=== PATIENT | female | born 1940 | race Caucasian/White ===

== ENCOUNTER 2023-05-01 10:25 | Outpatient (OUT) | payer MEDICARE, OTHER, SELFPAY ==
--- NOTE | 2023-05-01 | XR_ITS ---
The [address] [address] Patient Name: LEYLA LAMBERT MRN: [id number] date: 1940 Sex: F Assigned Patient Location: Current Patient Location: Accession/Order Number: [id number] Exam Date: 05/01/2023 10:53 Report Date: 05/01/2023 22:52 At the request of: AVA JARAMILLO Procedure: XR tibia fibula LT 2V EXAM: XR tibia fibula LT 2V HISTORY: LEFT LOWER LEG INJURY COMPARISON: None. TECHNIQUE: 2 views left tibia/fibula FINDINGS: There is a soft tissue defect seen along the lateral aspect of the fibula. No underlying osseous abnormality. Joint alignment is preserved. There is chondrocalcinosis at the knee joint with mild degenerative change. Incidental note of vascular calcification. XR/XR tibia fibula LT 2V IMPRESSION: Soft tissue defect at the lateral aspect of the proximal to mid fibula without osseous abnormality. Chondrocalcinosis and degenerative change of the knee joint. Electronically authenticated by: JENNIFER MACDONALD Date: 05/01/2023 22:52
== END 2023-05-01 10:26 | disposition home or self-care (01) ==
LOC: WC 10:25
PROVIDERS: PCP Family Medicine; Visit Provider Podiatrist Foot & Ankle Surgery
DX: S81.802A Unspecified open wound, left lower leg, initial encounter (principal)
CPT/HCPCS: 73590; G0463

== ENCOUNTER 2023-07-13 09:34 | Outpatient (OUT) | payer MEDICARE, OTHER, SELFPAY | END 2023-07-13 09:35 | disposition home or self-care (01) | LOC: WC 09:34 | PROVIDERS: PCP Family Medicine; Visit Provider Physician Assistant | DX: S81.802A Unspecified open wound, left lower leg, initial encounter (principal) | CPT/HCPCS: G0463 ==

== ENCOUNTER 2024-12-09 08:18 | Outpatient (OUT) | payer MEDICARE, OTHER, SELFPAY | END 2024-12-09 08:19 | disposition home or self-care (01) | LOC: WC 08:20 | PROVIDERS: PCP Family Medicine; Visit Provider Podiatrist Foot & Ankle Surgery | DX: L97.922 Non-pressure chronic ulcer of unspecified part of left lower leg with fat layer exposed (principal) | CPT/HCPCS: G0463 ==

== ENCOUNTER 2024-12-27 14:05 | Outpatient (OUT) | payer MEDICARE, OTHER, SELFPAY | END 2024-12-27 14:06 | disposition home or self-care (01) | LOC: WC 14:06 | PROVIDERS: PCP Family Medicine; Visit Provider Physician Assistant | DX: L97.922 Non-pressure chronic ulcer of unspecified part of left lower leg with fat layer exposed (principal) | CPT/HCPCS: G0463 ==

== ENCOUNTER 2025-01-24 08:15 | Outpatient (OUT) | payer MEDICARE, OTHER, SELFPAY ==
--- OUTSIDE RECORDS SUMMARY | 2024-07-25 10:15 | XMS_ITS ---
Author Organization [facility] Address [address] [place] [address] Care Team Providers Care Gas Pit Worker Name Role Phone rosita singh Primary Care Provider JARED PETERS [phone] REASON FOR VISIT blood draw Encounters Encounter Location Date Provider Diagnosis [facility] [address] [place] [address] 07/25/2024 JARED PETERS Plan Of Treatment No Information Progress Notes * Nahomy LAMBERT ADOB: (84 yo F)Acc No.[id number]:07/25/2024 Progress Notes Patient: Argenis SANTONahomy MAYEN Provider: Anton PETERS MD :1940 A ge:84 Y S ex:Female Date:07/25/2024 Address:[address] Pcp:rosita velazquez Structured Data:Consent to r eceive voicemail/text messages? : YES Subjective: * Chief Complaints: * 1 . Blood draw. * Medical History: Objective: * Vitals: Assessment: Plan: * Treatment: * Billing Information: * Visit Code: * Procedure Codes: * Electronic signature of JUHI PETERS MD on 01/24/2025 at 08:21 AM EDT Sign off status: Pending * Provider: Anton PETERS MD Date: 09/25/2023 Generated for Printi ng/Faxing/eTransmitting on: 0 01/24/2025 08:21 AM EDT
--- OUTSIDE RECORDS SUMMARY | 2024-08-01 07:00 | XMS_ITS ---
Author Organization [facility] Address [address] [place] [address] Care Team Providers Care Goldbeater Name Role Phone rosita singh Primary Care Provider AMEYA BENITEZ [phone] REASON FOR VISIT f/u labs Encounters Encounter Location Date Provider Diagnosis [facility] [address] [place] [address] 08/01/2024 AMEYA BENITEZ Plan Of Treatment No Information Progress Notes * Nahomy LAMBERT ADOB: (84 yo F)Acc No.[id number]:08/01/2024 Patient: Argenis SANTONahomy MAYEN Provider: Newton BENITEZ MD :1940 A ge:84 Y S ex:Female Date:08/01/2024 Address:[address] Pcp:rosita velazquez Structured Data:Consent to r eceive voicemail/text messages? : YES Subjective: * Chief Complaints: * 1 . F/u labs. * Medical History: Objective: * Vitals: Assessment: Plan: * Treatment: * Billing Information: * Visit Code: * Procedure Codes: * Electronic signature of ZOHAIB BENITEZ MD on 01/24/2025 at 08:21 AM EDT Sign off status: Pending * Provider: Newton BENITEZ MD Date: 10/02/2023 Generated for Printi ng/Faxing/eTransmitting on: 01/24/2025 08:21 AM EDT
--- OUTSIDE RECORDS SUMMARY | 2024-09-22 09:30 | XMS_ITS ---
Author Organization [facility] Address [address] [place] [address] Care Team Providers Care Patient Educator Name Role Phone rosita singh Primary Care Provider AMEYA BENITEZ [phone] REASON FOR VISIT Annual Wellness Visit Encounters Encounter Location Date Provider Diagnosis [facility] [address] [place] [address] 09/22/2024 AMEYA BENITEZ Plan Of Treatment No Information Progress Notes * Nahomy LAMBERT ADOB: (84 yo F)Acc No.[id number]:09/22/2024 Progress Notes Patient: Argenis SANTONahomy MAYEN Provider: Newton BENITEZ MD :1940 A ge:84 Y S ex:Female Date:09/22/2024 Address:[facility] [address] Pcp:rosita velazquez Structured Data:Consent to r eceive voicemail/text messages? : YES Subjective: * Chief Complaints: * 1 . Annual Wellness Visit. * Medical History: Objective: * Vitals: Assessment: Plan: * Treatment: * Billing Information: * Visit Code: * Procedure Codes: * Electronic signature of ZOHAIB BENITEZ MD on 01/24/2025 at 08:19 AM EDT Sign off status: Pending * Provider: Newton BENITEZ MD Date: 09/22/2024 Generated for Printi ng/Faelisabetg/eTransmitting on: 01/24/2025 08:19 AM EDT
--- OUTSIDE RECORDS SUMMARY | 2025-01-24 08:20 | XMS_ITS | Patient Health Record ---
Author Organization [facility] Address [facility] [place] [address] Support Name Relationship Address Phone Nahomy Fried Guarantor Unknown [phone] Allergies Allergen (clinical drug ingredient) Drug/Non Drug Allergy documented on EMR Reaction Allergy Type Onset Date Status acetaminophen Tylenol stomach upset Drug Allergy Active codeine Codeine stomach upset Drug Allergy Act patience Latex Latex Rash Allergy Active Reason For Referral No Information Medications Medication SIG (Take, Route, Frequency, Duration) Notes Start Date End Date Status Calcium Carbonate 1250 (500 Ca) MG 1 tablet Orally Once a day Active Carbidopa-Levodopa 25-100 MG 1 tablet as needed Orally Once a day Active Daliresp 500 MCG 1 tablet Orally Once a day Active Doxycycline Monohydrate 100 MG 1 capsule Orally every 12 hrs Active Fludrocortisone Acetate 0.1 MG 1 tablet Orally Once a day Active hydrALAZINE HCl 25 MG 1 tablet with food Orally Three times a day Active Levothyroxine Sodium 100 MCG 1 tablet in the morning on an empty stomach Orally Once a day Active traZODone HCl 150 MG 1 tablet at bedtime Orally Once a day Active Trelegy Ellipta 100-62.5-25 MCG/INH 1 puff Inhalation Once a day Active Warfarin Sodium 5 MG 1 tablet Orally Thursday, , Thursday, Thursday Active amLODIPine Besylate 5 MG 1 tablet Orally Once a day Active Warfarin Sodium 7.5 MG 1 tablet Orally M , Thursday, Thursday Active Aspirin 81 MG 1 tablet Orally Once a day Active CeleBREX 200 MG 1 capsule with food Orally Once a day for 60 days Active CeleBREX 200 MG 1 capsule with food Orally Once a day Active Problems Problem Type SNOMED Code ICD Code Onset Dates Problem Status W/U Status Risk Notes Problem Chronic pain syndrome (243196215) Chronic pain syndrome (G89.4) Active confirmed Problem Lumbar radiculopathy (355565815) Lumbar radiculopathy (M54.16) Active confirmed Problem Acquired spondylolisthesis (663985091) 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) Active confirmed Problem 7376669362925637 History of tota l left knee replacement (Z96.652) Active confirmed Plan Of Treatment Pending Test Test Name Order Date CT Scan : Lumbar Spine 09/04/2021 Ultrasound : Lower Extremity, right 08/17 Insurance Providers Payer Name Payer Address Payer Phone Subscriber Number Group Number Insured Name Patient Relationship to Insured Coverage Start Date Coverage End Date MEDICARE OF [place] [address] [place] [phone] [id number] Nahomy Fried Self - patient is the insured [address] [phone] [id number] Nahomy Fried Self - patient is the insured Medical (General) History Medical History History ICD Code Arthritis Orthostatic Hypotension Hypothyroidism Pulmonary Embolism Insomnia Cyst on Left Kidney Heart Disease (Pace Maker) Breast Cancer (Mastectomy) Surgical History Surgery Date(Month/Year) TKR (right) X 2 Hysterctomy Mastectomy (Bilateral) Pace Maker Colectomy Hospitalization History Reason Date(Month/Year) Infection on Right leg
--- OUTSIDE RECORDS SUMMARY | 2025-01-24 08:20 | XMS_ITS | Patient Health Record ---
Author Organization [facility] Address [address] [place] [address] Care Team Providers Care Engine Repairer Production Name Role Phone rosita singh Primary Care Provider JARED PETERS Unavailable [phone] AMEYA BENITEZ Unavailable [phone] Allergies Allergen (clinical drug ingredient) Drug/Non Drug Allergy documented on EMR Reaction Allergy Type Onset Date Status cobalt, Gold (uncoded) rash Allergy Active Tylenol/Codeine #3 stomach upset Drug Allergy Active Latex latex rash Allergy Active nickel Nickel rash Allergy Active Reason For Referral No Information Medications Medication SIG (Take, Route, Frequency, Duration) Notes Start Date End Date Status Celecoxib 200 MG 1 capsule Orally TWICE a day Active Famotidine 40 MG 1 tablet Orally twic e a day (morning and bedtime) Active hydrALAZINE HCl 25 MG 1 tablet with food Orally every 4 hours as needed for sap over 180 for 90 days Active Clopidogrel Bisulfate 75 MG 1 tablet Ora lly Once a day Active Levothyroxine Sodium 100 MCG 1 tablet every morning on an empty stomach Orally Once a day for 90 days Active Metoprolol Succinate 100 MG 1 capsule Or ally Once a day Not-Taking Apixaban 5 MG 1 tablet Orally Twic e a day for 90 days Active Montelukast Sodium 10 MG Take 1 tablet b y mouth once daily for 90 days for 90 Active Aspirin 81 MG 1 tablet Orally Once a day Active traZODone HCl 150 MG 1 tablet at bedtime Orally Once a day for 90 days Active Fludrocortisone Acetate 0.1 MG 3 tablet Orally Once a day Active Coumadin 5 MG 1 tablet M & F, 1 tablet 5 days Orally Once a day Active Metoprolol Succinate ER 100 MG 1 tablet Orally Once a day for 90 days Active Gabapentin 300 MG 2 capsules Orally ti d for 90 days Active Pantoprazole Sodium 40 MG 1 tablet Orall y in the morning and bed time Active Doxycycline Monohydrate 100 MG 1 capsule Orally twice a day Active Carbidopa-Levodopa 25-100 MG 1 tablet Orally AT NIGHT for 90 days Active Fluticasone Propionate 50 MCG/ACT 1 spray in each nostril Nasally Once a day for 90 days Active Social History Alcohol Screening: Question Answer Notes Did you have a drink containing alcohol in the p ast year? No Points 0 Interpretation Negative Problems Problem Type SNOMED Code ICD Code Onset Dates Problem Status W/U Status Risk Notes Problem 53479036 Atherosclerosis of aorta (I70.0) Active confirmed Problem 319824075 Other thrombophilia (D68.69) Active confirmed Pt taking anticoagulant due AF and Pulmonary Embolism Problem Hyperlipidemia (47840277) Other hyperlipidemia (E78.4) Active confirmed Problem 34743107 Hyperlipidemia, unspecified (E78.5) Active confirmed Problem 49169315 Restless legs syndrome (G25.81) Active confirmed Problem 516130447163423 Atherosclerotic heart disease of [place] coronary artery without angina pectoris (I25.10) Active confirmed Problem 058231430966208 Spinal enthesopathy, 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) Active confirmed Ligamentum flavum hypertrophy L3-L4 /// 08/21/2021 CT Lumbar Spine Problem 029416367 Overactive bladder (N32.81) Active confirmed Problem 760587305 assisted (current) 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s (Z79.01) Active confirmed Problem 335379965 Personal history of other venous thrombosis and embolism (Z86.718) Active confirmed Problem 13579282 Hypothyroidism, unspecified (E03.9) Active confirmed Problem 08815172 Essential (primary) hypertension (I10) Active confirmed Problem 71936251 Hypertensive heart disease with heart failure (I11.0) Active confirmed Associated with HF---Continue on Clopidogrel Bisulfate 75 MG Problem 10297764 Chronic obstructive pulmonary disease, unspecified (J44.9) Active confirmed 02/27/2023 Cardiology notes--Taking Daliresp Problem 43260479 Sick sinus syndrome (I49.5) Active confirmed 02/27/2023 Cardiology notes--S/P PPM (permanent pacemaker) implanted in 2017 Problem 704282554 Insomnia, unspecified type (G47.00) Active confirmed Problem 04945909 Other pulmonary embolism without acute cor pulmonale, unspecified chronicity (I26.99) Active confirmed 02/27/2023 Cardiology note page 1/ patent stent in LAD, on Coumadin Problem Non-smoker (3516407) Non-smoker (Z78.9) Active confirmed Problem 398136899 Diastolic congestive heart failure, unspecified HF chronicity (I50.30) Active confirmed Diastolic dysfunction-Gl obal EF 45-50%, E to A ratio reversal in ECHO 09/2021--- 11/10/2022 [place] [facility] notes Problem Chronic atrial fibrillation (disorder) (419446269) Chronic atrial fibrillation, unspecified (I48.20) Active confirmed Pt in anti-platelets therapy --08/19/2017 Dr. Andrade notes--page 3/ Problem Cardiac pacemaker in situ (586542572) Cardiac pacemaker in situ (Z95.0) Active confirmed Problem 79166214 Parkinson's disease, unspecified whether dyskinesia present, unspecified whether manifestations fluctuate (G20.A1) Active confirmed Taking Carbidopa-Levo dopa Problem 09836314 Congestive heart failure, unspecified congestive heart failure chronicity, unspecified congestive heart failure type (I50.9) Inactive confirmed Problem 85298450 Parkinsonism, unspecified Parkinsonism type (G20.C) Inactive confirmed Taking Carbidopa-Levo dopa Encounters Encounter Location Date Provider Diagnosis [facility] [place] [address] [place] [address] 10/07/2024 AMEYA BENITEZ Plan Of Treatment Pending Test Test Name Order Date HEMOGLOBIN A1c (496) [facility] 09/24/2023 UA Urinalysis Complete (9653) [facility] 03/2024 Lipid Panel, Standard (7600) [facility]Pay 09/24/2023 CBC (includes Differential and Platelets ) (6399) [facility] 09/24/2023 TSH and FREE T4 (97050) [facility] 09/24/2023 CT: Lumbar Spine WIthout Contrast 2021 COMPREHENSIVE METABOLIC PANEL (71251) [facility] EST 09/24/2023 INR 09/11/2016 INR 07/22/2019 INR 08/02/2018 INR 08/05/2013 Prothrombin Time/INR (PT) 0137-0 020 Chest X-ray PA and lateral 07/22/2011 CBC (INCLUDES DIFF/PLT) 07/30/2017 Future Test Test Name Order Date Chest X-ray PA and lateral 07/22/2017 Vitamin D, 25-Hydroxy, Total, Immunoassa y (67062) - [facility] 09/23/2021 ESR Sed Rate by Modified Westergren (809 ) [facility] 09/23/2021 CBC (H/H, RBC, Indices, WBC, Plt) (1759) [facility] 09/23/2021 TSH and FREE T4 (01340) [facility] 09/23/2021 COMPREHENSIVE METABOLIC PANEL (84235) [facility] 09/23/2021 LIPID PANEL W/REFLEX TO DIRECT LDL (1485 2) [facility] 09/23/2021 Insurance Providers Payer Name Payer Address Payer Phone Subscriber Number Group Number Insured Name Patient Relationship to Insured Coverage Start Date Coverage End Date Medicare - [facility] [address] [address] [place] [address] [id number] Nahomy Fried A Self - patient is the insured [address] [id number] Nahomy Fried A Self - patient is the insured Medical (General) History Medical History History ICD Code Hypertension Chronic atrial fibrillation Hypercoagulable state with h istory of multiple DVTs and pulmonary emboli, 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 CAD, status post PCI with stents Hypothyroidism COPD Pulmonary hypertension Breast cancer, bilateral mastectomies Dyslipidemia Chronic constipation Chronic Coumadin therapy chronic kidney disease respiratory failure with hypoxia CARISA on CPAP lung nodule anxiety CHF NYHA class III angina class III persistent sinus bradycardia history of pulmonary embolism Pacemaker February/2017 Surgical History Surgery Date(Month/Year) Bilateral mastectomies 1989, 1991 Cholecystectomy Hysterectomy IVC filter Sigmoid colectomy, extensive diverticulo sis, LGI bleed 05/02/2011 Right knee replacement 01/2013 Patella removed 01/2015 Permanet Pacemaker -- persistent sinus b radycardia 02/2017 Right knee revision 2016 Right knee infection - fpc antibio tics 05/2018 Pacemaker replaced 02/2020
--- OUTSIDE RECORDS SUMMARY | 2025-01-24 08:20 | XMS_ITS | Patient Health Record ---
Author Organization [facility] Address [address] [place], [place] [address] [place], [place] [address] Care Team Providers Care Combination Machine Tool Operator Name Role Phone Douglas Will Primary Care Provider Juan Carlos Sesay [phone] Allergies Allergen (clinical drug ingredient) Drug/Non Drug Allergy documented on EMR Reaction Allergy Type Onset Date Status Tylenol with Codeine #3 Unknown Drug Allergy Active Latex Latex Unknown Allergy Active Reason For Referral No Information Medications Medication SIG (Take, Route, Frequency, Duration) Notes Start Date End Date Status Clopidogrel Bisulfate Active Fludrocortisone Acetate Active hydrALAZINE HCl Acti ve Pantoprazole Sodium 40 MG 1 tablet Orall y twice daily Active Montelukast Sodium A ctive Celecoxib Active toprol Active Trelegy Ellipta Acti ve traZODone HCl Active amLODIPine Besylate Active Carbidopa-Levodopa A ctive Levothyroxine Sodium Active warfarin Active Azelastine HCl Activ e Social History Tobacco Use: Social History Observation Description Date Details (start date - stop date) Former Smoker NA - NA Alcohol Screen Question Answer Notes Did you have a drink containing alcohol in the p ast year? No Points 0 Interpretation Negative Smoking Question Answer Notes Status former smoker Section Notes: Seperated Seperated Problems Problem Type SNOMED Code ICD Code Onset Dates Problem Status W/U Status Risk Notes Problem 267177403 Gastroparesis (K31.84) Active confirmed Problem 91519116 Dysphagia, unspecified type (R13.10) Active confirmed Encounters Encounter Location Date Provider Diagnosis [facility] [address] [place] [address] [address] [place], [place] [id number] 09/12/2024 Juan Carlos Lacie Plan Of Treatment Pending Test Test Name Order Date Upper gastrointestinal (UGI) series 01/16 Esophagram 02/12/2023 Esophageal Manometry 01/14/2023 Insurance Providers Payer Name Payer Address Payer Phone Subscriber Number Group Number Insured Name Patient Relationship to Insured Coverage Start Date Coverage End Date [place] [address] [place] [place] [address] [id number] Nahomy Fried Self - patient is the insured [facility] [address] [place] [id number] Nahomy Fried Self - patient is the insured Medical (General) History Medical History History ICD Code MTHR mutation congestive heart failure shortness of breath hypertension tachycardia coronary artery disease COPD breast cancer Hiatal hernia deep vein thrombosis hyperlipidemia sleep apnea dysphagia gastroparesis Surgical History Surgery Date(Month/Year) colon surgery (segmental colectomy) abdominal surgery bilateral mastectomy cardiac catheterization cholecystectomy coronary angioplasty with stents EGD cataract extraction, bilateral hysterectomy right knee replacement pacemaker insertion patella surgery vena cava filter placement lymph nodes biopsy
--- OUTSIDE RECORDS SUMMARY | 2025-01-24 08:20 | XMS_ITS | Patient Health Record ---
Author Organization [facility] Address [address] [place] [address] Care Team Providers Care Staff Research Scientist Name Role Phone Ronen Henning Unavailable [phone] Allergies No Known Allergies Reason For Referral No Information Medications Medication SIG (Take, Route, Frequency, Duration) Notes Start Date End Date Status Fludrocortisone Acetate 0.1 MG 1 tablet Orally Once a day Active amLODIPine Besylate 5 MG 0 Oral for 08/22/2010 Active Levothyroxine Sodium 125 MCG 0 Oral for 011 Active Metoprolol Succinate 25 MG 1 capsule Ora lly Once a day Active Clopidogrel Bisulfate 75 MG 1 tablet Ora lly Once a day Active Aspirin 81 MG 0 Oral for 08/22/2010 A ctive Anusol-HC 25 MG 1 Rectal 1 DAILY for 10/01/2010 Active Amitiza 24 MCG 0 Oral for 08/22/2010 Active hydrALAZINE HCl 25 MG 1 tablet with food Orally Three times a day Active Apixaban 5 MG 1 tablet Orally Twic e a day Active Montelukast Sodium 10 MG 1 tablet Orally Once a day Active Fluticasone Furoate 50 MCG/ACT 1 puff Inhalation Once a day Active Sucralfate 1 GM 1 tablet on an empty stomach Orally Twice a day Active Celecoxib 200 MG 1 capsule with food Orally Once a day Active Warfarin Sodium 5 MG 0 Oral for 08/22/2010 Active Bisoprolol-hydroCHLOROthiazi d e 5-6.25 MG 1 tablet Orally Once a day Active Simvastatin 80 MG 0 Oral for 08/22/2010 Active Trelegy Ellipta 100-62.5-25 MCG/ACT 1 puff Inhalation Once a day Active Carbidopa-Levodopa 25-100 MG 1 tablet as needed Orally Two times a Week Active traZODone HCl 150 MG 1 tablet at bedtime Orally Once a day Active Zetia 10 MG 0 Oral for 30 08/22/2010 Act patience Social History Tobacco Use: Social History Observation Description Date Details (start date - stop date) Former Smoker NA - NA Tobacco Use/Smoking (Archived) Question Answer Notes Are you a? former smoker How long has it been since y ou last smoked? > 10 years Additional Findings: Tobacco User Modera te cigarette smoker (10-19 cigs/day) Additional Findings: Tobacco Non-User Current no n-smoker Alcohol Screen (Audit-C) Question Answer Notes Did you have a drink containing alcohol in the p ast year? No Points 0 Interpretation Negative Tobacco use other than smoking: Question Answer Notes Are you an other tobacco user? No Problems Problem Type SNOMED Code ICD Code Onset Dates Problem Status W/U Status Risk Notes Problem Gastroesophageal reflux disease (894978035) Chronic GERD (K21.9) Active confirmed Not well controlled with Pantoprazole 40 mg BID and Famotidine 40 mg BID. Problem Achalasia of esophagus (53820901) Achalasia status post Heller myotomy with Francisco Javier fundoplication (K22.0) Active confirmed Surgery on 05/20/23 Plan Of Treatment No Information Insurance Providers Payer Name Payer Address Payer Phone Subscriber Number Group Number Insured Name Patient Relationship to Insured Coverage Start Date Coverage End Date MEDICARE B [place] [employer] [address] [address] [place] [address] [id number] LEYLA LAMBERT Self - patient is the insured [address] [place], [place] [address] [address] [place] [address] [phone] [id number] LEYLA LAMBERT Self - patient is the insured Medical (General) History Medical History History ICD Code Hypertension Hypercholesterolemia Hypothyroidism Deep Vein Thrombosis (DVT) and PE Diverticulosis Surgical History Surgery Date(Month/Year) Gallbladder Remove 1979 Hysterectomy 1979 Mastectomy [phone] 1st Colonoscopy: Colonoscopy was done on Apr 01, 2010, which revealed: Sigmoid colon:- diverticulosis. Appendectomy 1958 Esophagomyotomy heller with toupet fondo plication 2023-05-20 EGD by myself on 08/24/2023 showed benign-appearing esophageal stricture probably at the surgical site, post esophageal dilatation over guidewire with#48
--- OUTSIDE RECORDS SUMMARY | 2025-01-24 08:20 | XMS_ITS | Clinical Summary ---
Author Organization [facility] Address [address] [place] [address] Phone Care Team Providers Care Rn Camp Name Role Phone Nakul Andrews MD Primary Care Provider + Allergies Active Allergy Reactions Criticality Noted Date Comments Acetaminophen-Codeine Unknown,GI intolerance,GI Upset,Nausea Only,Other Medium 03/31/2011 Other reaction(s): Abdominal Pain Sentinel Itching,Other,Unknow n,Rash High 03/01/2014 Other reaction(s): Welts welts Codeine GI intolerance,Unknown, Nausea Only,Other Medium 04/08/2018 Other reaction(s): nausea, severe Acetaminophen-codeine Other reaction(s): nausea, severe Acetaminophen-codeine Other reaction(s): nausea, severe Other reaction(s): Abdominal Pain Droxidopa Shortness of breath High 02/14/2020 Gold Au 198 Unknown,Itching,Othe r,Rash Low 07/20/2014 Other reaction(s): Welts itching Gold Keratinate Unknown,Itching,Othe r,Rash Low 12/05/2016 itching Sentinel Nickel welts Other reaction(s): Welts Other reaction(s): Intolerance itching Gold Sodium Thiomalate (Bulk) Itching,Other,Rash Low 08/04/2014 Other reaction(s): Welts Latex Itching,Other,Rash High 05/31/2012 Patient states allergic to Latex Patient states allergic to Latex Other reaction(s): Welts Patient states allergic to Latex Levonorgestrel-Ethiny l Estrad Cough,Itching,Runny nose Medium 11/19/2015 Nickel Hives,Itching,Other, Rash High 03/01/2014 Other reaction(s): Welts Other Other 10/04/2018 Annotation - [id number]: Nickel, Sentinel, Gold Compounding Medications acetaminophen (Tylenol) 500 mg tablet Take 2 tablets (1,000 mg) by mouth 3 times a day. 2 Active apixaban (Eliquis) 2.5 mg tablet Take 1 tablet (2.5 mg) by mouth twice a day. 4 Active azelastine (Astelin) 137 mcg (0.1 %) nasal spray Administer 2 sprays into each nostril 2 times a day. 3 Active calcium carbonate (Tums) 200 mg calcium chewable tablet Chew 1 tablet (500 mg) twice a day. 2 Active carbidopa-levod opa (Sinemet) 25-100 mg tablet 1 tablet. 0 Active celecoxib (CeleBREX) 200 mg capsule Take 1 capsule (200 mg) by mouth twice a day. 3 Active clopidogrel (Plavix) 75 mg tablet Take 1 tablet (75 mg) by mouth once daily. 3 Active famotidine (Pepcid) 40 mg tablet 3 Active fludrocortisone (Florinef) 0.1 mg tablet Take 1 tablet every day by oral route for 90 days. 0 Active fluticasone (Flonase) 50 mcg/actuation nasal spray 2 sprays once daily. 3 Active Trelegy Ellipta 100-62.5-25 mcg blister with device Inhale 1 puff once daily. 0 Active furosemide (Lasix) 20 mg tablet Take 1 tablet (20 mg) by mouth once daily. 3 Active hydrALAZINE (Apresoline) 25 mg tablet every 8 hours. 0 Active levothyroxine (Tirosint) 112 mcg capsule Take 1 capsule (112 mcg) by mouth once daily. 4 Active metoprolol succinate XL (Toprol-XL) 100 mg 24 hr tablet Take 1 tablet (100 mg) by mouth once daily. 3 Active montelukast (Singulair) 10 mg tablet Take 1 tablet (10 mg) by mouth once daily. Active roflumilast (Daliresp) 500 mcg tablet Take 1 tablet (500 mcg) by mouth once daily. 3 Active traZODone (Desyrel) 150 mg tablet Take 1 tablet every day by oral route at bedtime. 0 Active Active Problems Problem Noted Date Diagnosed Date Actinic keratosis 04/01/2024 Complex regional pain syndrome affecting both up per arms 04/01/2024 Shy-Drager syndrome (Multi) 04/01/2024 CHF (congestive heart failure) 04/01/2024 Depressive disorder 04/01/2024 Difficulty walking 04/01/2024 Diverticular disease 04/01/2024 Recurrent falls 04/01/2024 History of cardiac pacemaker in situ 04/01/2024 Obesity with body mass index 30 or greater 04/01 Presence of stent in coronary artery 04/01/2024 Prosthetic joint loosening 04/01/2024 MDD (major depressive disord er), recurrent episode, moderate 01/27/2024 Overview (04/01/2024): Last Assessment & Plan: Symptoms controlled with trazodone and continue. Parkinson's disease 12/31/2023 Failure to thrive in adult 12/30/2023 Overview (04/01/2024): Last Assessment & Plan: Started tube feeds and now has diarrhea. Contact surgeon and may need to adjust feeds. Physical deconditioning 12/30/2023 Achalasia of cardia 12/22/2023 Cyst of left kidney 12/16/2023 Persistent insomnia 12/16/2023 Prediabetes 12/16/2023 Primary osteoarthritis of both knees 12/16/2023 Rosacea 12/16/2023 Lung mass 12/14/2023 Aortic aneurysm of unspecified site, without rup ture 11/23/2023 Penetrating ulcer of aorta 11/23/2023 Overview (04/01/2024): Last Assessment & Plan: Recent procedure and doing well. Follow with vascular. Last Assessment & Plan: She is status post endovascular repair. Postoperative CTA shows excellent repair. She is doing well from that standpoint. Last Assessment & Plan: No pain and follow with vascular. Mixed hyperlipidemia 02/04/2023 Iron deficiency anemia 04/18/2022 Overview (04/01/2024): Last Assessment & Plan: Assessment: per Blood management Algorithm. Pt. treated per Algorithm protocol. Pt. notified and assisted with scheduling per [facility] RN Restless legs syndrome 04/17/2022 Overview (04/01/2024): Last Assessment & Plan: Assessment: managed with Sinemet Stable. Incontinence 12/23/2021 Paroxysmal atrial fibrillation (Multi) Overview (04/01/2024): dx 2008 Last Assessment & Plan: Assessment: anticoagulated with warfarin Follows with cardiology Supine hypertension 02/23/2020 Pacemaker 02/23/2020 Overview (04/01/2024): Last Assessment & Plan: Assessment: AV Biotronik ( 2017) in [facility] for chronotropic incompetence last check 03/25/2022 and card ( scanned into [facility]) Essential hypertension, benign 12/19/2019 Overview (04/01/2024): Last Assessment & Plan: BP controlled and monitor PRN. Orthostatic hypotension 03/17/2018 Overview (04/01/2024): Last Assessment & Plan: BP improved and continue florinef. Chronic kidney disease 03/10/2017 Obstructive sleep apnea syndrome 11/19/2015 Overview (04/01/2024): Last Assessment & Plan: Assessment: does not use CPAP Genetic susceptibility to other disease 03/22/20 15 Overview (04/01/2024): Last Assessment & Plan: Assessment: Hx DVT, PE anticoagulated Chronic heart failure with p reserved ejection fraction (HFpEF) 12/18/2014 Overview (04/01/2024): Last Assessment & Plan: Follow with cardiology Aseptic necrosis of medial femoral condyle (Mult i) 05/17/2014 Overview (04/01/2024): LATERAL CONDYLE Coronary atherosclerosis 03/03/2014 Overview (04/01/2024): Last Assessment & Plan: No chest pain and monitor. EF 55%, 70% proximal stenosis in a moderate sized OM2 branch of the Cx, 60-70% proximal RCA stenosis. 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 so has IVC filter placed History of thromboembolism of vein 12/17/2011 Overview (04/01/2024): Last Assessment & Plan: Assessment: Hx DVT s/p [place] filter ( 2007), PE anticoagulated denies any recent episodes Hypothyroidism 11/19/2011 Overview (04/01/2024): Last Assessment & Plan: No signs of low thyroid and repeat labs. Infection of prosthetic joint 11/19/2011 Gastro-esophageal reflux disease with esophagiti s 07/08/2011 Stage 2 moderate COPD by GOLD classification (Mu lti) 02/10/2011 Overview (04/01/2024): Last Assessment & Plan: Mild SOB and continue inhalers. Last Assessment & Plan: Symptoms stable and continue flonase. Resolved Problems Problem Noted Date Diagnosed Date Resolved Date Acute maxillary sinusitis, unspecified 04/01/2024 04/01/2024 Acute respiratory failure 04/01/2024 Pleurodynia 04/01/2024 04/01/2024 Cellulitis of skin 04/01/2024 Allergic rhinitis 04/01/2024 04/01/2024 Increased thirst 04/01/2024 04/01/2024 Dysphagia 03/28/2024 04/01/2024 Dysphagia, unspecified type 03/28/2024 04/01/2024 Inflammation of sacroiliac joint 03/17/2024 04/01/2024 Acute renal failure superimp osed on chronic kidney disease 01/14/2024 04/01/2024 Allergic rhinitis due to pollen 12/16/2023 04/01/2024 Hypertensive emergency 11/23/202304/01 Atypical chest pain 11/23/2023 04/01/20 Hypertensive emergency 11/23/202304/01 Laceration without foreign b олег, left lower leg, initial encounter 04/20/2023 04/01/2024 Infection of prosthetic right knee joint 03/07/2023 04/01/2024 Breast cancer 02/04/2023 04/01/2024 Overview (04/01/2024): s/p b/l massectomies Last Assessment & Plan: Assessment: right breast cancer s/p bilateral mastectomy ( 1989,1991) and chemotherapy Centrilobular emphysema (Multi) 02/04/2023 04/01/2024 Pneumonia 02/04/2023 04/01/2024 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HHS-HCC) 04/29/2022 04/01/2024 Overview (04/01/2024): Last Assessment & Plan: Assessment:JAYSON, per Blood management Algorithm. Pt. treated per Algorithm protocol. Pt. notified and assisted with scheduling per [facility] RN Hypokalemia 06/19/2021 04/01/2024 KARLEE (acute kidney injury) 06/09/2021 Infection of peripherally in serted central venous catheter (PICC) 10/28/2018 04/01/2024 Overview (04/01/2024): IMO update October 2020 version Cellulitis of leg, right 06/14/2018 C. difficile colitis 04/17/2018 024 Cellulitis 12/14/2013 04/01/2024 Diverticulitis of colon 07/08/201103/174 Social History Tobacco Use Types Packs/Day Years Used Date Smoking Tobacco: Never Smokeless Tobacco: Never Tobacco Cessation:Counseling Given: Not Answered AUDIT-C Answer Date Recorded Q1: How often do you have a drink containing alcohol? Never 03/28/2024 Q2: How many drinks containi ng alcohol do you have on a typical day when you are drinking? Patient does not drink Q3: How often do you have si x or more drinks on one occasion? Never 03/28/2024 Overall Financial Resource Strain (CARDIA) Answe r Date Recorded How hard is it for you to pa y for the very basics like food, housing, medical care, and heating? Not very hard 03/28/2024 PHQ-2 Answer Date Recorded Patient Health Questionnaire-2 Score 0 03/28/2024 PRAPARE - Transportation Answer Date Re corded In the past 12 months, has l ack of transportation kept you from medical appointments or from getting medications? No 03/17 In the past 12 months, has l ack of transportation kept you from meetings, work, or from getting things needed for daily living? No 03/28/2024 Housing Stability Vital Sign Answer Diallo e Recorded In the last 12 months, was t here a time when you were not able to pay the mortgage or rent on time? No 03/28/2024 In the past 12 months, how m any times have you moved where you were living? 1 03/28/2024 At any time in the past 12 m [facility], were you homeless or living in a nursing home (including now)? No 03/28/2024 Comments Unknown Sex and Gender Information Value Date Recorded Sex Assigned at Not on file Legal Sex Female 2:36 PM EST Gender Identity Not on file Sexual Orientation Not on file Last Filed Vital Signs Vital Sign Reading Time Taken Comments Blood Pressure 129/78 05/30/2024 2:08 PM EDT Pulse 76 05/30/2024 2:08 PM EDT Temperature 36.3 C (97.3 F) 04/01/2024 2:00 PM EDT Respiratory Rate 19 04/01/2024 2:00 PM EDT Oxygen Saturation 96% 04/01/2024 2:00 PM EDT Inhaled Oxygen Concentration - - Weight 47.2 kg (104 lb) 05/30/2024 2:08 PM EDT Height 160 cm (5' 3 ) 03/31/2024 7:27 AM EDT Body Mass Index 18.42 03/31/2024 7:27 AM EDT Plan of Treatment Health Maintenance Due Date Last Done Comments Lipid Panel 1940 Medicare Annual Wellness Visit (AWV) 1940 CKD: Urine Protein Screening 1958 RSV High Risk: (Elderly (60+) or Population) (1 - 1-dose 75+ series) 2014 Diabetes: Hemoglobin A1C 06/10/2022 06/10/2021 COVID-19 Vaccine ( season) 2024 07/18/2023, 04/15/2022, 06/25/2021 Echocardiogram 12/31/2024 01/01/2024, 11/25/2023 TSH Level 03/17/2025 03/17/2024 Diabetes Screening 03/28/2025 03/28/2024, 06/10/2021 Creatinine Level 04/01/2025 04/01/2024, , 03/30/2024, Additional history exists Potassium Level 04/01/2025 04/01/2024, 03/17, 03/30/2024, Additional history exists Bone Density Scan 04/03/2025 04/03/2023, 04/03/2023 DTaP/Tdap/Td Vaccines (4 - Td or Tdap) 02/10/2033 02/10/2023, 06/30/2018, 06/22/2018 Pneumococcal Vaccine Completed 05/02/2023, 11/27/2016, 06/21/2015, Additional history exists Zoster Vaccines Completed 06/23/2023, 04/17, 05/12/2013 Irritable Bowel Syndrome Discontinued 03/31/2024, 04/17 Influenza Vaccine Completed 04/27/2024, , 04/15/2022, Additional history exists HIB Vaccines Aged Out No longer eligi ble based on patient's age to complete this topic HPV Vaccines Aged Out No longer eligi ble based on patient's age to complete this topic Hepatitis A Vaccines Aged Out No long er eligible based on patient's age to complete this topic Hepatitis B Vaccines Aged Out No long er eligible based on patient's age to complete this topic IPV Vaccines Aged Out No longer eligi ble based on patient's age to complete this topic Meningococcal Vaccine Aged Out No ted raman eligible based on patient's age to complete this topic Rotavirus Vaccines Aged Out No longer eligible based on patient's age to complete this topic Medical Devices Implanted Type Area Sanitor Device Identifier Shelf Expiration Date Model / Serial / Lot Yaneth Donovan [id number] Implanted:Qty: 1 on 07/05/2020 by Garland Vincent MD Implant [employer] 01/16/2021 CFX-10 [id number] Description:Converted from [facility]. Please see archived information for full log information. Joint Knee Joint Knee Right: Knee Procedures Procedure Name Priority Date/Time Associated Diagnosis Comments RENAL FUNCTION PANEL Pending Discharge 04/01/2024 7:16 AM EDT EGD Routine 03/31/2024 8:54 AM EDT Gastroesophageal reflux disease, unspecified whether esophagitis present POCT GLUCOSE Routine 03/28/2024 11:09 PM EDT from Last 3 Months or Most Recently Relevant to Health Maintenance Results * (ABNORMAL) Renal Function Panel (04/01/2024 7:16 AM EDT) Glucose 93 74 - 99 mg/dL LAB CHEMISTRY METHOD 04/01/2024 7:50 AM EDT [facility] Sodium 138 136 - 145 mmol/L LAB CHEMISTRY METHOD 04/01/2024 7:50 AM T [facility] Potassium 3.9 3.5 - 5.3 mmol/L LAB CHEMISTRY METHOD 04/01/2024 7:50 AM EDT [facility] Chloride 106 98 - 107 mmol/L LAB CHEMISTRY METHOD 04/01/2024 7:50 AM EDT [facility] Bicarbonate 26 21 - 32 mmol/L LAB CHEMISTRY METHOD 04/01/2024 7:50 AM T [facility] Anion Gap 10 10 - 20 mmol/L LAB CHEMISTRY METHOD 04/01/2024 7:50 AM EDT [facility] Urea Nitrogen 34(H) 6 - 23 mg/dL LAB CHEMISTRY METHOD 04/01/2024 7:50 AM EDT [facility] Creatinine 0.91 0.50 - 1.05 mg/dL LAB CHEMISTRY METHOD 04/01/2024 7:50 AM EDT [facility] eGFR 62 >60 mL/min/1. 73m*2 LAB CHEMISTRY METHOD 04/01/2024 7:50 AM EDT [facility] Comment: Calculations of estimated GFR are performed using the 2020 CKD-EPI Study Refit equation without the race variable for the IDMS-Traceable creatinine methods. https://jasn.asnjournals.org/content/early//ASN.7857010175 Calcium 7.7(L) 8.6 - 10.3 mg/dL LAB CHEMISTRY METHOD 04/01/2024 7:50 AM EDT [facility] Phosphorus 2.4(L) 2.5 - 4.9 mg/dL LAB CHEMISTRY METHOD 04/01/2024 7:50 AM EDT [facility] Comment:The performance marin acteristics of phosphorus testing in heparinized plasma have been validated by the individual laboratory site where testing is performed. Testing on heparinized plasma is not approved by the FDA; however, such approval is not necessary. Albumin 3.6 3.4 - 5.0 g/dL LAB CHEMISTRY METHOD 04/01/2024 7:50 AM EDT [facility] Blood Venous blood specimen / Unknown Venipuncture / Unknown 04/01/2024 7:16 AM EDT 04/01/2024 7:20 AM EDT us David Mcnulty'Brien DO LAB BLOOD ORDERABLES Final R esult [facility] [address] [place] [address] * Esophagogastroduodenoscopy (EGD) w Dilation TTS (03/31/2024 8:54 AM EDT) Anatomical Region Laterality Modality Endoscopy Narrative 03/31/2024 9:00 AM EDT Table formatting from the original result was not included. 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 The cardia appeared normal. The duodenum appeared normal. Findings Dilation in the esophagus Regular Z-line 41 cm from the incisors Benign-appearing intrinsic stricture (traversable) in the lower third of the esophagus (40 cm from the incisors) Injected 100 total units of Botox in the GE junction (GE junction) using a four-quadrant injection method One sharp object in the cardia, successfully retrieved with grasping forceps The body of the stomach and antrum appeared normal. The cardia appeared normal. The duodenum appeared normal. Recommendation Follow up with me in clinic Chew well and eat slowly Do tube feeds at night Take small bites and wash food down with liquid Area injected with botox just above the z line and ridge seemed to soften up. Get tube feed cycled at night Eat what you can in day See ent and speech therapy about the modified barium swallow Indication Gastroesophageal reflux disease, unspecified whether esophagitis present Staff Staff Role Isis Julio MD MPH Proceduralist Medications See Anesthesia Record. Preprocedure A history and physical has been performed, and patient medication allergies have been reviewed. The patient's tolerance of previous anesthesia has been reviewed. The risks and benefits of the procedure and the sedation options and risks were discussed with the patient and famliy . All questions were answered and informed consent obtained. Details of the Procedure The patient underwent monitored anesthesia care, which was administered by an anesthesia professional. The patient's blood pressure, ECG, ETCO2, heart rate, level of consciousness, oxygen and respirations were monitored throughout the procedure. The scope was introduced through the mouth and advanced to the second part of the duodenum. Retroflexion was performed in the cardia. Prior to the procedure, the patient's H. Pylori status was unknown. Events Procedure Events Event Event Time ENDO SCOPE IN TIME 03/31/2024 8:22 AM Specimens ID Type Source Tests Collected by Time 1 : FOREIGN BODY IN STOMACH Tissue FOREIGN BODY(S) SURGICAL PATHOLOGY EXAM Isis Julio MD MPH 03/31/2024 0831 Procedure Location [place] [address] [place] [id number] Referring Provider Rock Burciaga MD Procedure Provider Isis Julio MD MPH us Rock Burciaga MD ENDOSCOPY PROCEDURE ORDERABLES Final Result * POCT GLUCOSE (03/28/2024 11:09 PM EDT) POCT Glucose 99 74 - 99 mg/dL 03/28/2024 11:10 PM EDT [facility] Blood Capillary blood specimen / Unknown 03/28/2024 11:09 PM EDT 03/28/2024 11:10 PM EDT us David Thorpe DO LAB POINT OF CARE TE ST DOCKED DEVICE UNSOLICITED RESULTS Final Result [facility] [address] [place] [address] from Last 3 Months or Most Recently Relevant to Health Maintenance Insurance [address] [place] [address] MEDICARE PART A AND B [facility] [place] [address] [address] [place] [address] MEDICARE PART A AND B [facility] [place] [address] Advance Directives For more information, please contact: [phone] (Available ) * Full Code (Latest Code Status on File) Date Activated Date Inactivated Comments 03/28/2024 6:04 PM Question Answer Comments Plan of Care: Code Status Discussion Completed Decision Maker: Patient Care Teams Rn Camp Relationship Specialty Start Date End Date Nakul Andrews MD [address] [place] [address] PCP - General 06/18/20
--- OUTSIDE RECORDS SUMMARY | 2025-01-24 08:21 | XMS_ITS | Referral Summary ---
Author Organization [facility] Address [address] [place] [address] Care Team Providers Care Potato Peeler Name Role Phone Douglas Will MD Primary Care Provider [phone] Allergies Active Allergy Reactions Criticality Noted Date Comments Acetaminophen-Codeine Nausea Only,Other, GI intolerance Medium 03/31/2011 Other reaction(s): Abdominal Pain [place] Itching,Rash,Other Low 03/01/2014 Other reaction(s): Welts Codeine Nausea Only,Other,GI intolerance Medium 04/08/2018 Other reaction(s): Abdominal Pain Droxidopa Shortness of breath High 02/14/2020 Gold Au 198 Itching,Rash,Other Low 07/20/2014 Other reaction(s): Welts Gold Keratinate Itching,Rash,Other Low 12/05/2016 Other reaction(s): Welts Gold Sodium Thiomalate (Bulk) Itching,Rash,Other Low 08/04/2014 Other reaction(s): Welts Latex Itching,Rash,Other Low 05/31/2012 Other reaction(s): Welts Nickel Itching,Rash,Other Low 03/01/2014 Other reaction(s): Welts Levonorgestrel-Ethiny l Estrad Itching,Cough,Runny nose Medium 11/19/2015 Medications Medication Sig Dispensed Refills Start Date End Date Status warfarin (Coumadin) 5 mg tablet TAKE ONE 5MG TABLET ON THURSDAY, THURSDAY, THURSDAY AND THURSDAY. TAKE 7.5 ON THE OTHER DAYS. 12/15/2022 Active triamcinolone (Kenalog) 0.1 % cream triamcinolone acetonide 0.1 % topical cream 03/23/2022 Active traZODone (Desyrel) 150 mg tablet 12/31/2022 Active traMADol (Ultram) 50 mg tablet TAKE 1 TO 2 TABLETS BY MOUTH EVERY 8 HOURS NEEDED FOR PAIN FOR UP TO 7 DAYS 05/22/2022 Active tiotropium (Spiriva Respimat) 2.5 mcg/actuation inhaler in the morning. Active sotalol (Betapace) 120 mg tablet in the morning. Active sodium fluoride-pot nitrate 1.1-5 % paste BRUSH WITH A PEA SIZE AMOUNT TWICE DAILY IN PLACE OF REGULAR TOOTHPASTE 08/05/2022 Active roflumilast (Daliresp) 500 mcg tablet 12/25/2022 Active PARoxetine (Paxil) 20 mg tablet TAKE 1 TABLET BY MOUTH ONCE DAILY AT NIGHT 10/05/2022 Active pantoprazole (ProtoNix) 40 mg EC tablet 01/15/2023 Active oxybutynin (Ditropan) 5 mg tablet Take 5 mg by mouth at bedtime. 10/30/2022 Active omeprazole (PriLOSEC) [address] capsule omeprazole 40 mg capsule,delayed release Active nebivolol (Bystolic) 5 mg tablet Take 10 mg by mouth twice a day. Active mupirocin (Bactroban) 2 % ointment 04/17/2022 Active montelukast (Singulair) 10 mg tablet Take 10 mg by mouth at bedtime. 12/19/2022 Active metoclopramide (Reglan) 10 mg tablet 11/27/2022 Active losartan (Cozaar) 100 mg tablet losartan 100 mg tablet Active levothyroxine (Synthroid, Levoxyl) 100 mcg tablet 01/20/2023 Active levocetirizine (Xyzal) 5 mg tablet Take 5 mg by mouth in the evening. 07/24/2022 Active ipratropium (Atrovent) 42 mcg (0.06 %) nasal spray ipratropium bromide 42 mcg (0.06 %) nasal spray Active hydrALAZINE (Apresoline) 25 mg tablet every 4 (four) hours. 11/07/2019 Act patience gabapentin (Neurontin) 300 mg capsule gabapentin 300 mg capsule Active furosemide (Lasix) 20 mg tablet Take 20 mg by mouth in the morning. 11/03/2022 Active Trelegy Ellipta 100-62.5-25 mcg blister with device 09/30/2022 Activ e fluticasone (Flonase) 50 mcg/actuation nasal spray 11/27/2022 Active fludrocortisone (Florinef) 0.1 mg tablet 11/17/2022 Active doxycycline (Monodox) 100 mg capsule 11/17/2022 Active docusate sodium (Colace) 100 mg capsule TAKE 1 CAPSULE BY MOUTH TWICE DAILY NEEDED FOR CONSTIPATION 05/06/2022 Active diclofenac (Voltaren) 1 % topical gel diclofenac 1 % topical gel Active clopidogrel (Plavix) 75 mg tablet 12/17/2022 Active cholecalciferol (Vitamin D-3) 1,250 mcg (50,000 unit) capsule Take 50,000 Units by mouth 1 (one) time per week. 07/18/2022 Active celecoxib (CeleBREX) 200 mg capsule Take 200 mg by mouth in the morning and at bedtime. 01/07/2023 Active cefdinir (Omnicef) 300 mg capsule Take 300 mg by mouth in the morning and at bedtime. 06/26/2022 Active carbidopa-levodopa (Sinemet) 25-100 mg tablet Take 1 tablet by mouth at bedtime. 12/17/2022 Active calcium carbonate (Tums) 200 mg calcium (500 mg) chewable tablet Chew 500 mg twice a day. 05/06/2022 Active Breztri Aerosphere 160-9-4.8 mcg/actuation HFA aerosol inhaler INHALE 2 PUFFS IN THE MORNING AND AT BEDTIME 10/15/2022 Active budesonide-formoter oL (Symbicort) 160-4.5 mcg/actuation inhaler every 12 (twelve) hours. 05/26/2018 Active azelastine (Astelin) 137 mcg (0.1 %) nasal spray USE 2 SPRAY(S) IN EACH NOSTRIL TWICE DAILY 12/19/2022 Active aspirin 81 mg EC tablet in the morning. Active amLODIPine (Norvasc) 10 mg tablet 01/13/2023 Active ALPRAZolam (Xanax) 0.5 mg tablet alprazolam 0.5 mg tablet Active albuterol 90 mcg/actuation inhaler INHALE 2 PUFFS BY MOUTH EVERY 4 HOURS NEEDED FOR WHEEZING 06/30/2022 Active Acetaminophen Extra Strength 500 mg tablet TAKE 2 TABLETS BY MOUTH EVERY 8 HOURS 05/06/2022 Active Social History Tobacco Use Types Packs/Day Years Used Date Smoking Tobacco: Never Passive Smoke Exposure: Never Smokeless Tobacco: Never Tobacco Cessation:Counseling Given: No Alcohol Use Standard Drinks/Week Comments Not Currently 0 (1 standard drink = 0.6 oz pur e alcohol) [place] Safety & Environment Answer Date Rec orded Fear of Current or Ex-Partner Not on file Emotionally Abused Not on file 10/08/2023 Physically Abused Not on file 10/08/2023 Sexually Abused Not on file 10/08/2023 Physically or Sexually Abused Not on file Sex and Gender Information Value Date Recorded Sex Assigned at Not on file Gender Identity Not on file Sexual Orientation Not on file Last Filed Vital Signs Vital Sign Reading Time Taken Comments Blood Pressure 141/79 04/25/2020 4:31 PM EDT Pulse - - Temperature - - Respiratory Rate - - Oxygen Saturation 97% 04/12/2020 3:30 PM EDT Inhaled Oxygen Concentration - - Weight 50.5 kg (111 lb 5.3 oz) 02/09/2023 5:35 P M EDT Height 160.1 cm (5' 3.03 ) 02/09/2023 5:35 PM ED T Body Mass Index 19.7 02/09/2023 5:35 PM EDT Plan of Treatment Not on file Care Teams Potato Peeler Relationship Specialty Start Date End Date Douglas Will MD [address] [place] [address] PCP - General Family Medicine 07/01/24
--- OUTSIDE RECORDS SUMMARY | 2025-01-24 08:21 | XMS_ITS | Clinical Summary ---
Author Organization [facility] Address [address] [place] [address] Care Team Providers Care Abrasive Worker Name Role Phone Douglas Will MD Primary Care Provider [phone] Allergies Active Allergy Reactions Criticality Noted Date Comments Acetaminophen-Codeine Nausea Only,Other, GI intolerance Medium 03/31/2011 Other reaction(s): Abdominal Pain [place] Itching,Rash,Other Low 03/01/2014 Other reaction(s): Welts Codeine [...] 02/09/2023 5:35 PM EDT Plan of Treatment Health Maintenance Due Date Last Done Comments Medicare Annual Wellness (AWV) 1940 Depression Screening 1951 Fall Risk Screening 2004 COVID-19 Vaccine (2 - Moderna risk series) 2021 06/25/2021 Influenza Vaccine (Season Ended) 2025 05/02/2023, 04/15/2022, 06/25/2021, Additional history exists Adult Tetanus 02/10/2033 02/10/2023, 06/17, 06/22/2018 Pneumococcal Vaccine: 65+ Years Completed 05/02/2023, 11/27/2016, 06/21/2015, Additional history exists Zoster Vaccines Completed 06/23/2023, 04/17, 05/12/2013 HIB Vaccines Aged Out No longer eligi ble based on patient's age to complete this topic HPV Vaccines Aged Out No longer eligi ble based on patient's age to complete this topic IPV Vaccines Aged Out No longer eligi ble based on patient's age to complete this topic Meningococcal B Vaccine Aged Out No l onger eligible based on patient's age to complete this topic Meningococcal Vaccine Aged Out No ted raman eligible based on patient's age to complete this topic Rotavirus Vaccines Aged Out No longer eligible based on patient's age to complete this topic Care Teams Abrasive Worker Relationship Specialty Start Date End Date Douglas Will MD [address] [place] [address] PCP - General Family Medicine 07/01/24
--- OUTSIDE RECORDS SUMMARY | 2025-01-24 08:21 | XMS_ITS | Patient Health Record ---
Author Organization [facility] [place] Address [address] [place] [address] Care Team Providers Care Complaint Supervisor Name Role Phone Nakul Andrews MD Primary Care Provider Unabilly ariasle Allergies Allergen (clinical drug ingredient) Drug/Non Drug Allergy documented on EMR Reaction Allergy Type Onset Date Status [place] cobalt (uncoded) rash Allergy Act patience codeine codeine (uncoded) nausea, severe Allergy Active Gold and/or gold compound (FN) gold (uncoded) rash Allergy Active Latex latex (uncoded) rash Allergy Acti ve nickel nickel (uncoded) rash Allergy Act patience Results Component Value Reference Range Notes D DIMER (Not yet reviewed by provider) Interpretation: Performing Lab:[facility], [address] [place] [address]. [address] PH:[phone] Notes/Report: D DIMER 1419 <255 ng/mL DDU Results >=255ng/mL DDU: Results may be indicative of the presence of VTE. The use of the Wells score and further diagnostic tests should be considered. Elevated D-Dimer levels can also be associated with DIC, neoplasm, , trauma and liver disease. Elevated levels of rheumatoid factor may lead to an overestimation of the D-Dimer level. PERFORMED AT [address] [place] [address] The copy-to physician of this order is POLLY Llanos ; , ; The ordering physician of this order is STACEY Guido COMPREHENSIVE METABOLIC PANE L (Not yet reviewed by provider) Interpretation: Performing Lab:[facility] ([facility]), [address], [place]. [address] PH:[phone] Notes/Report: SODIUM 141 134-146 mmol/L POTASSIUM 4.2 3.5-5.0 mmol/L CHLORIDE 107 98-109 mmol/L CARBON DIOXIDE 26 22-32 mmol/L ANION GAP 8 5-15 mmol/L BLOOD UREA NITROGEN 20 5-27 mg/dL CREATININE 1.40 0.40-1.00 mg/dL METHOD TRACE ABLE TO IDMS STANDARD GLUCOSE 88 65-99 mg/dL CALCIUM 8.7 8.5-10.5 mg/dL TOTAL PROTEIN 6.4 6.0-8.0 g/dL ALBUMIN 3.6 3.2-5.3 g/dL ALKALINE PHOSPHATASE 57 39-130 U/L AST 18 0-41 U/L ALT 9 0-31 U/L BILIRUBIN,TOTAL 0.6 0.3-1.2 mg/dL eGFR (CKD-EPI) NON-RACE DEPENDENT 37 >59 ml/min/1.73sq.m Reported eGFR is based on the CKD-EPI 2020 equation that does not use a race coefficient. PERFORMED AT [address] [place] [address] The copy-to physician of this order is POLLY Llanos ; , ; The ordering physician of this order is STACEY Guido BILIRUBIN,DIRECT (Not yet re viewed by provider) Interpretation: Performing Lab:[facility] ([facility]), [address] [place] [address], [address] [place] [address]. [address] PH:[phone] Notes/Report: BILIRUBIN,DIRECT 0.1 0.0-0.4 mg/dL PERFORMED AT [address], [place] [address] The copy-to physician of this order is POLLY Llanos ; , ; The ordering physician of this order is STACEY Guido Reason For Referral No Information Medications Medication SIG (Take, Route, Frequency, Duration) Notes Start Date End Date Status traZODone HCl Active Daliresp Active Aspir-81 Active Warfarin Sodium Acti ve Spiriva HandiHaler A ctive Symbicort Active predniSONE 10 MG 1 tablet Orally TID x 3 days, 1 tab BID x 3 days, 1 tab daily x 3 days for 9 days Active Bisoprolol-hydroCHLOROthiaz sawyer Active Isosorbide Mononitrate Active Carbidopa-Levodopa A ctive Social History Tobacco Use: Social History Observation Description Date Details (start date - stop date) Former Smoker NA - NA Tobacco Use/Smoking Question Answer Notes Patient is a former smoker Problems Problem Type SNOMED Code ICD Code Onset Dates Problem Status W/U Status Risk Notes Problem 5164974 Other spondylosis, lumbar 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) Active confirmed Problem [id number] Degenerative scoliosis (M41.9) Active confirmed Problem Chronic ulcer of left leg, with fat layer exposed (L97.922) Active confirmed Plan Of Treatment Pending Test Test Name Order Date BILIRUBIN,DIRECT 12/08/2024 D DIMER 12/08/2024 COMPREHENSIVE METABOLIC PANEL 12/08/2024 Insurance Providers Payer Name Payer Address Payer Phone Subscriber Number Group Number Insured Name Patient Relationship to Insured Coverage Start Date Coverage End Date [place] [address] [place] [address] [id number] Nahomy Fried Self - patient is the insured 4 [facility] [address] [place] [address] [id number] Nahomy Fried Self - patient is the insured 8 Medical (General) History Medical History History ICD Code Heart disease I51.9 Pulmonary emphysema, unspecified emphyse ma type J43.9 Chronic obstructive pulmonary disease, u nspecified COPD type J44.9 History of breast cancer Z85.3 PE (pulmonary thromboembolism) I26.99 DVT Surgical History Surgery Date(Month/Year) 3 cardiac stents rt TKA with revision hysterectomy partial colectomy cholecystectomy bilat mastectomy pacemaker
[2025-01-24 08:37] LABS: Hemoglobin 9.5 g/dL (12.0-16.0)
[2025-01-24] MEDS: ALBUTEROL SULFATE 2.5 MG/3 ML VIAL NEB IH (09:26)
--- NOTE | 2025-01-24 09:29 | RT_ITS ---
[facility] Test Date: 2025-01-24 Pat Name: LEYLA LAMBERT Department: Room: - Gender: Female Email Production Consultant: Frederick Gallegos RRT : 1940 Requested By: POLLY BARRON Order Number: [id number] Reading MD: Morris Maldonado Interpretive Statements Pulmonary function testing was completed according to ATS criteria. Findings were considered accurate and reproducible, with exception of DLCO which did not meet ATS standards. Both pre- and post-bronchodilator values utilized for spirometry. Spirometry (based on pre-bronchodilator values): -FEV1/FVC: Reduced @ 61% -FEV1: Normal @ 102% -FVC: Normal @ 122% -There is no significant bronchodilator response. Lung volumes by plethysmography (based on pre-bronchodilator values): -RV: Increased @ 173% -TLC: Increased @ 124% Diffusion capacity: -DLCO: Mild reduction @ 73% when corrected for Hb 9.5g/dL Impressions: -Spirometry suggests mild obstruction. An elevated RV and TLC suggest air trapping and hyperinflation respectively. There is a mildly reduced diffusion capacity. 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 A mild anemia is present. Clinical correlation required. Electronically Signed On 01-24-2025 16:47:59 EDT by Morris Maldonado
== END 2025-01-24 08:16 | disposition home or self-care (01) ==
PROVIDERS: PCP Family Medicine; Visit Provider Family Medicine
DX: R06.02 Shortness of breath (principal); J44.9 Chronic obstructive pulmonary disease, unspecified
CPT/HCPCS: 36415; 85018

== ENCOUNTER 2025-01-24 10:28 | Emergency (ER) | payer MEDICARE, OTHER, SELFPAY ==
[2025-01-24 10:31] VITALS: BP 210/94; PULSE 86; TEMP 36.7; O2SAT 100; BMI 16.7
--- NOTE | 2025-01-24 10:31 | CT_ITS ---
The [address] [address] Patient Name: LEYLA LAMBERT MRN: [facility]:[id number] date: 1940 Sex: F Assigned Patient Location: ED.MAIN Current Patient Location: ED.MAIN Accession/Order Number: [id number] Exam Date: 01/24/2025 11:21 Report Date: 01/24/2025 11:31 At the request of: ERIKA WILKINSON MD Procedure: CT cervical spine wo con CLINICAL DATA: Patient fell and has had neck pain on the right CT BRAIN WITHOUT CONTRAST: COMPARISON: 04/21/2018 TECHNIQUE: Contiguous axial unenhanced images were obtained through the brain. This CT exam was performed using one or more following dose reduction techniques: Automated exposure control, adjustment of the mA and/or kV according to patient size, or use of iterative reconstruction technique. FINDINGS: There is generalized atrophy. The ventricles are within normal limits for size and position. Physiologic basal ganglia ossifications are present. Microvascular changes are noted. There are no additional areas of abnormal attenuation. There is no hemorrhage, mass effect or extra-axial collections. The calvarium is intact. There is mild hyperostosis frontalis. There is minor mucosal thickening at the right sphenoid sinus. The remaining imaged paranasal sinuses and mastoid air cells are clear. There is carotid siphon and vertebral artery plaque. CT/CT head/brain wo con IMPRESSION: ATROPHY AND SMALL VESSEL ISCHEMIC CHANGES. NO ACUTE INTRACRANIAL TRAUMA. CT CERVICAL SPINE WITHOUT CONTRAST WITH 3D RECONSTRUCTIONS: COMPARISON: None TECHNIQUE: Spiral axial unenhanced images were obtained through the cervical spine. Sagittal, coronal and 3D volume-rendered reconstructions were also reviewed. This CT exam was performed using one or more following dose reduction techniques: Automated exposure control, adjustment of the mA and/or kV according to patient size, or use of iterative reconstruction technique. FINDINGS: Alignment is maintained in the sagittal plane. No fractures are identified. There is no prominent disc space narrowing. There is multilevel endplate spurring, greatest posteriorly at C5-6 as well as bilateral facet hypertrophy. The atlantoaxial relationship is maintained and there is mild pannus. No prevertebral soft tissue swelling is seen. Degenerative changes are visualized at the mandibular condyles. There is carotid artery plaque. There is scarring at the upper imaged lungs. IMPRESSION: DEGENERATIVE CHANGES. NO ACUTE BONY INJURY. Impression dictated by: Mary Marie M.D. 01/24/2025 11:31 AM Dictation Location: [place] [address] Electronically authenticated by: [id number] Y Date: 01/24/2025 11:31
--- NOTE | 2025-01-24 10:31 | CT_ITS ---
The [address] [address] Patient Name: LEYLA LAMBERT MRN: [id number] date: 1940 Sex: F Assigned Patient Location: ED.MAIN Current Patient Location: ER Accession/Order Number: [id number] Exam Date: 01/24/2025 11:49 Report Date: 01/24/2025 11:54 At the request of: ERIKA WILKINSON MD Procedure: CT pelvis wo con CT BONY PELVIS WITHOUT CONTRAST WITH RECONSTRUCTIONS CLINICAL DATA: Patient fell and has right hip pain. COMPARISON: None Spiral images were obtained through the pelvis without contrast. Sagittal and coronal reconstructions were reviewed. This CT exam was performed using one or more following dose reduction techniques: Automated exposure control, adjustment of the mA and/or kV according to patient size, or use of iterative reconstruction technique. The bony structures are osteopenic. There are degenerative changes involving the lower imaged lumbar facets. The SI joints are intact. There is no acute fracture involving the sacrum, pelvic bones or proximal imaged femora. No hip dislocation is seen. The hip joint spaces are symmetric. There is minimal marginal spurring. There are enthesophytes at the iliac crests and greater trochanters. No hematoma is identified. A tiny left renal stone is present at the imaged kidney. There is no hydronephrosis. There is prominent plaque at the aorta and iliac arteries. There is a sigmoid anastomosis as well as some sigmoid diverticula. No active inflammation is seen. No ascites is identified. CT/CT pelvis wo con IMPRESSION: NO ACUTE BONY INJURY. Impression dictated by: Mary Marie M.D. 01/24/2025 11:54 AM Dictation Location: [place] [address] Electronically authenticated by: [id number] Y Date: 01/24/2025 11:54
--- NOTE | 2025-01-24 10:31 | CT_ITS ---
The [address] [address] Patient Name: LEYLA LAMBERT MRN: [facility]:[id number] date: 1940 Sex: F Assigned Patient Location: ED.MAIN Current Patient Location: ED.MAIN Accession/Order Number: [id number] Exam Date: 01/24/2025 11:21 Report Date: 01/24/2025 11:31 At the request of: ERIKA WILKINSON MD Procedure: CT cervical spine wo con CLINICAL DATA: Patient fell and has had neck pain on the right CT BRAIN WITHOUT CONTRAST: COMPARISON: 04/21/2018 TECHNIQUE: Contiguous axial unenhanced images were obtained through the brain. This CT exam was performed using one or more following dose reduction techniques: Automated exposure control, adjustment of the mA and/or kV according to patient size, or use of iterative reconstruction technique. FINDINGS: There is generalized atrophy. The ventricles are within normal limits for size and position. Physiologic basal ganglia ossifications are present. Microvascular changes are noted. There are no additional areas of abnormal attenuation. There is no hemorrhage, mass effect or extra-axial collections. The calvarium is intact. There is mild hyperostosis frontalis. There is minor mucosal thickening at the right sphenoid sinus. The remaining imaged paranasal sinuses and mastoid air cells are clear. There is carotid siphon and vertebral artery plaque. CT/CT cervical spine wo con IMPRESSION: ATROPHY AND SMALL VESSEL ISCHEMIC CHANGES. NO ACUTE INTRACRANIAL TRAUMA. CT CERVICAL SPINE WITHOUT CONTRAST WITH 3D RECONSTRUCTIONS: COMPARISON: None TECHNIQUE: Spiral axial unenhanced images were obtained through the cervical spine. Sagittal, coronal and 3D volume-rendered reconstructions were also reviewed. This CT exam was performed using one or more following dose reduction techniques: Automated exposure control, adjustment of the mA and/or kV according to patient size, or use of iterative reconstruction technique. FINDINGS: Alignment is maintained in the sagittal plane. No fractures are identified. There is no prominent disc space narrowing. There is multilevel endplate spurring, greatest posteriorly at C5-6 as well as bilateral facet hypertrophy. The atlantoaxial relationship is maintained and there is mild pannus. No prevertebral soft tissue swelling is seen. Degenerative changes are visualized at the mandibular condyles. There is carotid artery plaque. There is scarring at the upper imaged lungs. IMPRESSION: DEGENERATIVE CHANGES. NO ACUTE BONY INJURY. Impression dictated by: Mary Marie M.D. 01/24/2025 11:31 AM Dictation Location: [place] [address] Electronically authenticated by: [id number] Y Date: 01/24/2025 11:31
--- NOTE | 2025-01-24 10:31 | XR_ITS ---
The [address] [address] Patient Name: LEYLA LAMBERT MRN: [id number] date: 1940 Sex: F Assigned Patient Location: ED.MAIN Current Patient Location: ER Accession/Order Number: [id number] Exam Date: 01/24/2025 11:31 Report Date: 01/24/2025 11:47 At the request of: ERIKA WILKINSON MD Procedure: XR elbow RT min 3V CLINICAL DATA: Patient fell and has pain at the right shoulder, elbow, wrist, hand and knee. RIGHT SHOULDER - 3 views COMPARISON: None AP, Y and Grashey views were obtained. There is osteopenia. There is no evidence of fracture or dislocation. Minor degenerative changes are present. There are no significant soft tissue abnormalities. XR/XR elbow RT min 3V IMPRESSION: NO ACUTE BONY INJURY. RIGHT ELBOW - 3 VIEWS COMPARISON: None AP, lateral and oblique views were obtained. There is osteopenia. There is no definite acute fracture or dislocation. There are no significant soft tissue abnormalities. There is no elbow effusion. IMPRESSION: NO ACUTE BONY INJURY. RIGHT WRIST - 3 views COMPARISON: None AP, lateral and oblique views were obtained. There is osteopenia. There is no evidence of fracture or dislocation. There are no significant soft tissue abnormalities. Atherosclerotic disease is visualized. IMPRESSION: NO ACUTE BONY INJURY. RIGHT HAND - 2 views COMPARISON: None AP and lateral views were obtained. There is osteopenia. There is no obvious acute fracture or dislocation. There are no significant soft tissue abnormalities. IMPRESSION: NO ACUTE BONY INJURY. RIGHT KNEE - 3 views COMPARISON: None AP, lateral and internal oblique views were obtained. A knee prosthesis is present. There are long tibial and femoral stems which are not imaged in their entirety. There is osteopenia that slightly limits evaluation. There is bony fragmentation at the patella as well as suspected bony hypertrophy/heterotopic bone at the femoral condyles and tibial plateau, greater laterally. There is lucency around the components, greatest at the medial tibial plateau inferior to the tibial plate. In the absence of significant soft tissue swelling, these findings may be chronic however there are no priors for confirmation. No other definite acute fracture or dislocation is seen. There might be a small amount of joint fluid. IMPRESSION: OSTEOPENIA. POSTOPERATIVE AND BONY CHANGES WHICH ARE PROBABLY CHRONIC. NO DEFINITE ACUTE BONY INJURY HOWEVER THERE ARE NO SPECIFIC DETAILS REGARDING THE LOCATION OF PATIENT'S SYMPTOMS. CORRELATION IS RECOMMENDED WITH FOLLOW-UP WARRANTED. IF THERE ARE COMPARISON STUDIES WHICH ARE READILY AVAILABLE, CORRELATION MAY BE HELPFUL. Impression dictated by: Mary Marie M.D. 01/24/2025 11:47 AM Dictation Location: [place] [address] Electronically authenticated by: [id number] Y Date: 01/24/2025 11:47
--- NOTE | 2025-01-24 10:34 | XR_ITS ---
The [address] [address] Patient Name: LEYLA LAMBERT MRN: [id number] date: 1940 Sex: F Assigned Patient Location: ED.MAIN Current Patient Location: ER Accession/Order Number: [id number] Exam Date: 01/24/2025 11:31 Report Date: 01/24/2025 11:47 At the request of: ERIKA WILKINSON MD Procedure: XR elbow RT min 3V CLINICAL DATA: Patient fell and has pain at the right shoulder, elbow, wrist, hand and knee. RIGHT SHOULDER - 3 views COMPARISON: None AP, Y and Grashey views were obtained. There is osteopenia. There is no evidence of fracture or dislocation. Minor degenerative changes are present. There are no significant soft tissue abnormalities. XR/XR knee RT 3V IMPRESSION: NO ACUTE BONY INJURY. RIGHT ELBOW - 3 VIEWS COMPARISON: None AP, lateral and oblique views were obtained. There is osteopenia. There is no definite acute fracture or dislocation. There are no significant soft tissue abnormalities. There is no elbow effusion. IMPRESSION: NO ACUTE BONY INJURY. RIGHT WRIST - 3 views COMPARISON: None AP, lateral and oblique views were obtained. There is osteopenia. There is no evidence of fracture or dislocation. There are no significant soft tissue abnormalities. Atherosclerotic disease is visualized. IMPRESSION: NO ACUTE BONY INJURY. RIGHT HAND - 2 views COMPARISON: None AP and lateral views were obtained. There is osteopenia. There is no obvious acute fracture or dislocation. There are no significant soft tissue abnormalities. IMPRESSION: NO ACUTE BONY INJURY. RIGHT KNEE - 3 views COMPARISON: None AP, lateral and internal oblique views were obtained. A knee prosthesis is present. There are long tibial and femoral stems which are not imaged in their entirety. There is osteopenia that slightly limits evaluation. There is bony fragmentation at the patella as well as suspected bony hypertrophy/heterotopic bone at the femoral condyles and tibial plateau, greater laterally. There is lucency around the components, greatest at the medial tibial plateau inferior to the tibial plate. In the absence of significant soft tissue swelling, these findings may be chronic however there are no priors for confirmation. No other definite acute fracture or dislocation is seen. There might be a small amount of joint fluid. IMPRESSION: OSTEOPENIA. POSTOPERATIVE AND BONY CHANGES WHICH ARE PROBABLY CHRONIC. NO DEFINITE ACUTE BONY INJURY HOWEVER THERE ARE NO SPECIFIC DETAILS REGARDING THE LOCATION OF PATIENT'S SYMPTOMS. CORRELATION IS RECOMMENDED WITH FOLLOW-UP WARRANTED. IF THERE ARE COMPARISON STUDIES WHICH ARE READILY AVAILABLE, CORRELATION MAY BE HELPFUL. Impression dictated by: Mary Marie M.D. 01/24/2025 11:47 AM Dictation Location: [place] [address] Electronically authenticated by: [id number] Y Date: 01/24/2025 11:47
--- NOTE | 2025-01-24 10:48 | XR_ITS ---
The [address] [address] Patient Name: LEYLA LAMBERT MRN: [id number] date: 1940 Sex: F Assigned Patient Location: ED.MAIN Current Patient Location: ER Accession/Order Number: [id number] Exam Date: 01/24/2025 11:31 Report Date: 01/24/2025 11:47 At the request of: ERIKA WILKINSON MD Procedure: XR elbow RT min 3V CLINICAL DATA: Patient fell and has pain at the right shoulder, elbow, wrist, hand and knee. RIGHT SHOULDER - 3 views COMPARISON: None AP, Y and Grashey views were obtained. There is osteopenia. There is no evidence of fracture or dislocation. Minor degenerative changes are present. There are no significant soft tissue abnormalities. XR/XR hand RT 2V IMPRESSION: NO ACUTE BONY INJURY. RIGHT ELBOW - 3 VIEWS COMPARISON: None AP, lateral and oblique views were obtained. There is osteopenia. There is no definite acute fracture or dislocation. There are no significant soft tissue abnormalities. There is no elbow effusion. IMPRESSION: NO ACUTE BONY INJURY. RIGHT WRIST - 3 views COMPARISON: None AP, lateral and oblique views were obtained. There is osteopenia. There is no evidence of fracture or dislocation. There are no significant soft tissue abnormalities. Atherosclerotic disease is visualized. IMPRESSION: NO ACUTE BONY INJURY. RIGHT HAND - 2 views COMPARISON: None AP and lateral views were obtained. There is osteopenia. There is no obvious acute fracture or dislocation. There are no significant soft tissue abnormalities. IMPRESSION: NO ACUTE BONY INJURY. RIGHT KNEE - 3 views COMPARISON: None AP, lateral and internal oblique views were obtained. A knee prosthesis is present. There are long tibial and femoral stems which are not imaged in their entirety. There is osteopenia that slightly limits evaluation. There is bony fragmentation at the patella as well as suspected bony hypertrophy/heterotopic bone at the femoral condyles and tibial plateau, greater laterally. There is lucency around the components, greatest at the medial tibial plateau inferior to the tibial plate. In the absence of significant soft tissue swelling, these findings may be chronic however there are no priors for confirmation. No other definite acute fracture or dislocation is seen. There might be a small amount of joint fluid. IMPRESSION: OSTEOPENIA. POSTOPERATIVE AND BONY CHANGES WHICH ARE PROBABLY CHRONIC. NO DEFINITE ACUTE BONY INJURY HOWEVER THERE ARE NO SPECIFIC DETAILS REGARDING THE LOCATION OF PATIENT'S SYMPTOMS. CORRELATION IS RECOMMENDED WITH FOLLOW-UP WARRANTED. IF THERE ARE COMPARISON STUDIES WHICH ARE READILY AVAILABLE, CORRELATION MAY BE HELPFUL. Impression dictated by: Mary Marie M.D. 01/24/2025 11:47 AM Dictation Location: [place] [address] Electronically authenticated by: [id number] Y Date: 01/24/2025 11:47
--- NOTE | 2025-01-24 11:46 | CT_ITS ---
The [address] [address] Patient Name: LEYLA LAMBERT MRN: [facility]:[id number] date: 1940 Sex: F Assigned Patient Location: ER Current Patient Location: Accession/Order Number: [id number] Exam Date: 01/24/2025 12:14 Report Date: 01/24/2025 12:22 At the request of: ERIKA WILKINSON MD Procedure: CT lumbar spine wo con CT LUMBAR SPINE WITHOUT CONTRAST WITH RECONSTRUCTIONS CLINICAL DATA: Patient fell and has low back pain. COMPARISON: None Spiral images were obtained through the lumbar spine without contrast. Sagittal and coronal reconstructions were reviewed. This CT exam was performed using one or more following dose reduction techniques: Automated exposure control, adjustment of the mA and/or kV according to patient size, or use of iterative reconstruction technique. The bony structures are osteopenic. There is slight dextroscoliotic curvature. No acute compression fractures are identified. The disc spaces are uniform. There is minor endplate spurring. There is moderate lower lumbar facet hypertrophy. There is minor annular disc bulging toward the neural foramen at L2-3 with mild inferior foraminal encroachment. At L3-4, there is mild annular disc bulging as well as some facet and ligamentous hypertrophy with at least mild central stenosis and mild bilateral inferior foraminal encroachment. At L4-5, annular disc bulging is visualized. There is also facet and ligament hypertrophy with moderate central stenosis and mild to moderate foraminal encroachment. The image SI joints are intact. The distal aspect of the thoracic aortic stent is present. Minor scarring is present at the lower lobes. There is atherosclerotic disease involving the aorta, iliac and some of the visceral arteries. Patient has an IVC filter. CT/CT lumbar spine wo con IMPRESSION: OSTEOPENIA, SCOLIOSIS AND DISCOVERTEBRAL DEGENERATIVE CHANGES, DESCRIBED. NO ACUTE BONY INJURY. Impression dictated by: Mary Marie M.D. 01/24/2025 12:22 PM Dictation Location: [place] [address] Electronically authenticated by: [id number] Y Date: 01/24/2025 12:22
[2025-01-24] MEDS: KETOROLAC TROMETHAMINE 30 MG/ML VIAL 15 MG IM (12:04)
[2025-01-24] MEDS: TRAMADOL HCL 50 MG TABLET PO (12:04)
[2025-01-24 13:57] VITALS: BP 190/89; O2SAT 97
--- NOTE | 2025-01-24 15:35 | ED_ITS ---
HPI HPI - Fall General Chief Complaint: Fall Stated Complaint: FALL Time Seen by Provider: 01/24/25 10:31 Source: patient Mode of arrival: Wheelchair History of Present Illness HPI Narrative: The patient had a witnessed fall outside the hospital at the main entrance, the code) was called after the patient's was wheeling her on the walker outside of the main entrance, apparently she fell to the right side of her head and she did not pass out but upon my arrival she was laying her side, she was helped to the board and her cervical spine was fixed with a cervical collar when she was transferred to the ER Apparently the earlier the patient was offered wheelchair but they denied it at the apparently this is the way they like to be ambulating with the leaning on the walker and the patient sitting on the walker On arrival the patient was complaining of some right-sided headache in addition to right shoulder and right wrist and right knee and right elbow pain and back pain Related Data Allergies Allergy/AdvReac Type Severity Reaction Status Date / Time latex Allergy Severe Rash Verified 01/24/25 10:36 nickel Allergy Severe Rash Verified 01/24/25 10:36 acetaminophen (From AdvReac Mild upset Verified 01/24/25 10:36 Tylenol-Codeine) stomach codeine (From AdvReac Mild upset Verified 01/24/25 10:36 Tylenol-Codeine) stomach Opioid HPI Opioid Management Most Recent Pain and Opioid Data: Last Pain Scale 8 Today, 12:04 Last OCT Pain Assessment Today, 12:04 Review of Systems ROS Status of ROS 10 or more systems reviewed and unremark able except as noted in history and below Exam Narrative Exam Narrative: Nurses notes and vital signs reviewed and patient is not hypoxic. General: Well-appearing and in no apparent distress. Skin: Warm, dry, no pallor noted. No rash. Head: Normocephalic, atraumatic. Neck: Supple, non-tender. Eye: Pupils are equal, round and EOMI. No scleral icterus. Ears, Nose, Mouth, and Throat: TM are clear, no nasal mucosal hypertrophy. Oral mucosa is moist, no posterior oropharynx erythema, uvula is mid-line Cardiovascular: Regular Rate and Rhythm without murmur, gallop or rub. Respiratory: No accessory muscle use or respiratory distress. Lungs are clear to auscultation, no wheezing, rales or rhonchi Chest Wall: no tenderness Back: No midline thoracic or lumbar vertebral tenderness. No CVA tenderness Musculoskeletal: Localized tenderness to the right knee there is no ecchymosis or any swelling noted and the patient have an abrasion to the posterior aspect of the right elbow, mild tenderness upon palpation of the hand but there is no tenderness palpation of the wrist GI: Abdomen is soft, non-distended. Normal bowel sounds. No masses appreciated. No tenderness to palpation. No rebound, guarding, or rigidity noted. Neurological: A&O x4. No cranial nerve dysfunction observed. Constitutional Vital Signs, click to edit/add: Last Vital Signs Temp 98.0 F 01/24/25 10:31 Pulse 86 01/24/25 10:31 Resp 16 01/24/25 13:57 BP 190/89 H 01/24/25 13:57 Pulse Ox 97 01/24/25 13:57 O2 Del Method Room Air 01/24/25 10:31 Course Vital Signs Vital signs: Vital Signs Temperature 98.0 F 01/24/25 10:31 Pulse Rate 86 01/24/25 10:31 Respiratory Rate 20 01/24/25 10:31 Blood Pressure 210/94 H 01/24/25 10:31 Pulse Oximetry 100 01/24/25 10:31 Oxygen Delivery Method Room Air 01/24/25 10:31 Temperature 98.0 F 01/24/25 10:31 Pulse Rate 86 01/24/25 10:31 Respiratory Rate 16 01/24/25 13:57 Blood Pressure 190/89 H 01/24/25 13:57 Pulse Oximetry 97 01/24/25 13:57 Oxygen Delivery Method Room Air 01/24/25 10:31 MDM - Fall MDM Narrative Medical decision making narrative: CT of the head as well as CT of the cervical spine and x-ray of the right shoulder and x-ray of the right elbow and right knee in addition to a CT of the pelvis also showed no acute pathology Patient was able to ambulate at her baseline upon controlling her pain The patient as well as the patient instructed about the importance of monitoring symptoms for the next few hours in case of any headache nausea vomiting and decreased level of consciousness the patient to be brought back to the ER The patient is to follow up with primary care physician in next 2-3 days or to return to the emergency department should any of the signs or symptoms worsen or new symptoms develop. The patient agrees with the following Diagnosis and Treatment plan and the patient will be discharged home. Discharge Plan Discharge Chief Complaint: Fall Clinical Impression: Fall, Multiple contusions, Abrasion of elbow, Back pain, Knee pain Patient Disposition: Home, Self-Care Time of Disposition Decision: 13:44 Condition: Good Print Language: [place] Instructions: Back Pain (ED), Fall Prevention (ED) Referrals: Douglas Will MD [Primary Care Provider, Family Practice] - 1 week Discharge Date/Time: 01/24/25 14:01
== END 2025-01-24 14:01 | disposition home or self-care (01) ==
PROVIDERS: Emergency Provider Emergency Medicine; PCP Family Medicine
DX: S50.311A Abrasion of right elbow, initial encounter (principal); R06.02 Shortness of breath; J44.9 Chronic obstructive pulmonary disease, unspecified; W18.39XA Other fall on same level, initial encounter; M25.561 Pain in right knee; M54.9 Dorsalgia, unspecified; T14.8XXA Other injury of unspecified body region, initial encounter
CPT/HCPCS: 36415; 70450; 72125; 72131; 72192; 73030; 73080; 73110; 73120; 73562; 85018; 96372; 99285; J1885

== ENCOUNTER 2025-04-19 13:33 | Outpatient (OUT) | payer MEDICARE, OTHER, SELFPAY | END 2025-04-19 13:34 | disposition home or self-care (01) | LOC: WC 13:33 | PROVIDERS: PCP Family Medicine; Visit Provider Physician Assistant | DX: S81.801D Unspecified open wound, right lower leg, subsequent encounter (principal) | CPT/HCPCS: 29581; G0463 ==

== ENCOUNTER 2025-05-02 13:12 | Outpatient (OUT) | payer MEDICARE, OTHER, SELFPAY | END 2025-05-02 13:13 | disposition home or self-care (01) | LOC: WC 13:13 | PROVIDERS: PCP Family Medicine; Visit Provider Physician Assistant | DX: S81.801A Unspecified open wound, right lower leg, initial encounter (principal) | CPT/HCPCS: G0463 ==

== ENCOUNTER 2025-05-16 14:55 | Outpatient (OUT) | payer MEDICARE, OTHER, SELFPAY ==
--- OUTSIDE RECORDS SUMMARY | 2025-05-03 08:45 | XMS_ITS | Encounter Summary ---
Author Organization [facility] Address [address] [facility] [place] [address] Care Team Providers Care Roof Shingler Name Role Phone Douglas Will MD Primary Care Provider [phone] Reason for Visit * Reason Comments COPD 2 month follow up Encounter Details Date Type Department Care Team (Late st Contact Info) Description 05/03/2025 8:45 AM EDT Office Visit [facility] [address] [place] [address] Susie Quintero, DO [address] [place] [address] Chronic obstructive pulmonary disease, unspecified COPD type (HCC); COPD, mild (HCC) Social History Tobacco Use Types Packs/Day Years Used Date Smoking Tobacco: Never Smokeless Tobacco: Never [id number] Health Literacy Answer Date Recor ded How often do you need to hav e someone help you when you read instructions, pamphlets, or other written material from your doctor or pharmacy? Sometimes 01/20/2025 Humiliation, Afraid, Rape, and Kick questionnair e Answer Date Recorded Within the last year, have y ou been afraid of your partner or ex-partner? No 01/20/2025 Within the last year, have y ou been humiliated or emotionally abused in other ways by your partner or ex-partner? No Within the last year, have y ou been kicked, hit, slapped, or otherwise physically hurt by your partner or ex-partner? No 01/20/2025 Within the last year, have y ou been raped or forced to have any kind of sexual activity by your partner or ex-partner? No 01/20/2025 Social Connection and Isolation Panel [NHANES] A nswer Date Recorded In a typical week, how many times do you talk on the phone with family, friends, or neighbors? Three times a week 01/20/2025 How often do you get togethe r with friends or relatives? Once a week 01/20/2025 How often do you attend chur ch or pentecostal services? Never 01/20/2025 Do you belong to any clubs o r organizations such as sikhism groups, unions, fraternal or athletic groups, or school groups? No 01/20/2025 How often do you attend meet ings of the clubs or organizations you belong to? Never 01/20/2025 Are you , , di vorced, , never , or living with a partner? 01/20/2025 AUDIT-C Answer Date Recorded Q1: How often do you have a drink containing alcohol? Never 01/20/2025 Q2: How many drinks containi ng alcohol do you have on a typical day when you are drinking? Patient does not drink Q3: How often do you have si x or more drinks on one occasion? Never 01/20/2025 Overall Financial Resource Strain (CARDIA) Answe r Date Recorded How hard is it for you to pa y for the very basics like food, housing, medical care, and heating? Not hard at all 01/20/2025 PHQ-2 Answer Date Recorded Patient Health Questionnaire-2 Score 0 12/07/2024 [facility] - Occupational Stress Questionnaire Answer Date Recorded Do you feel stress - tense, restless, nervous, or anxious, or unable to sleep at night because your mind is troubled all the time - these days? Only a little 01/20/2025 Exercise Vital Sign Answer Date Recorde d On average, how many days pe r week do you engage in moderate to strenuous exercise (like a brisk walk)? 0 days 01/20/2025 On average, how many minutes do you engage in exercise at this level? 0 min 01/20/2025 Hunger Vital Sign Answer Date Recorded Within the past 12 months, y ou worried that your food would run out before you got the money to buy more. Never true 01/21/20 25 Within the past 12 months, t he food you bought just didn't last and you didn't have money to get more. Never true 01/20/2025 PRAPARE - Transportation Answer Date Re corded In the past 12 months, has l ack of transportation kept you from medical appointments or from getting medications? No 01/2025 In the past 12 months, has l ack of transportation kept you from meetings, work, or from getting things needed for daily living? No 01/20/2025 Housing Stability Vital Sign Answer Diallo e Recorded In the last 12 months, was t here a time when you were not able to pay the mortgage or rent on time? No 01/20/2025 In the past 12 months, how m any times have you moved where you were living? 0 01/20/2025 At any time in the past 12 m [facility], were you homeless or living in a fci (including now)? No 01/20/2025 Comments Unknown Sex and Gender Information Value Date Recorded Sex Assigned at Not on file Legal Sex Female 7:28 PM EDT Gender Identity Female 10/29/2022 7:28 PM EDT Sexual Orientation Not on file documented as of this encounter Last Filed Vital Signs Vital Sign Reading Time Taken Comments Blood Pressure - - Pulse 90 05/03/2025 8:54 AM EDT Temperature - - Respiratory Rate - - Oxygen Saturation 99% 05/03/2025 8:54 AM EDT Inhaled Oxygen Concentration - - Weight - - Height 162.6 cm (5' 4 ) 05/03/2025 8:54 AM EDT Body Mass Index - - documented in this encounter Progress Notes * Susie Quintero, DO - 05/03/2025 8:45 AM EDT Images from the original note were not included. Nahomy Fried presents today for follow up on COPD. She is accompanied by her at today's office visit. She was last seen a few months ago. Since her last office visit she did undergo Watchman insertion. This was done approximately 1 week ago. She states she does still have some shortness of breath. She has also been evaluated by Cardiology since her last office visit. This was approximately a few weeks ago. At that time there does not appear to be any adjustments of her medications, however there was some conversation in regards to her diuretic use. She has had some falls since her last office visit as well. She is currently being evaluated by home health to help with wound healingof a lower extremity wound after a fall. She does still note some shortness of breath. She denies any current complaints of chest pain, palpitations, fevers, chills, sweats, or recent unintentional weight changes. She denies any other complaints at this time. Allergies: Allergies Allergen Reactions Monument Itching, Other, Unknown and Rash welts Other reaction(s): Welts Other reaction(s): Welts welts Droxidopa Shortness of breath Gold-Containing Drug Products GI intolerance, Itching, Other, Rash and Unknown itching Other reaction(s): Intolerance itching Other reaction(s): Welts itching Monument Nickel welts Other reaction(s): Welts Other reaction(s): Intolerance itching Other reaction(s): Welts itching Nickel Hives, Itching, Other, Unknown and Rash Other reaction(s): Welts nickel Acetaminophen-Codeine Other, GI intolerance, Nausea Only and Unknown Other reaction(s): Abdominal Pain Codeine GI intolerance, Nausea Only, Other and Unknown Other reaction(s): nausea, severe Acetaminophen-codeine Other reaction(s): nausea, severe Other reaction(s): Abdominal Pain Other reaction(s): nausea, severe Acetaminophen-codeine Other reaction(s): nausea, severe Acetaminophen-codeine Other reaction(s): nausea, severe Other reaction(s): Abdominal Pain Other reaction(s): nausea, severe Acetaminophen-codeine Levonorgestrel-Ethinyl Estrad Cough, Itching and Runny nose Other Gold GI intolerance itching Monument Nickel welts Latex Rash Patient states allergic to Latex Patient states allergic to Latex Medications: Current Outpatient Medications: atorvastatin (Lipitor) 40 MG tablet, Take 1 tablet (40 mg) by mouth at bedtime, Disp: 90 tablet, Rfl: 3 carbidopa-levodopa (Sinemet) 25-100 MG tablet, 1 tablet as needed Orally Two times a Week, Disp: , Rfl: celecoxib (CeleBREX) 200 MG capsule, Take 1 capsule (200 mg) by mouth in the morning and 1 capsule (200 mg) before bedtime., Disp: 180 capsule, Rfl: 3 clobetasol (Temovate) 0.05 % ointment, Apply to affected areas, up to twice a day when flared, do not use one the face, groin, or underarms, 30 day supply, Disp: 60 g, Rfl: 11 cloNIDine (Catapres) 0.2 MG tablet, TAKE 1 TABLET BY MOUTH NEEDED FOR SYSTOLIC BLOOD PRESSURE GREATER THAN OR EQUAL TO 170 SYSTOLIC, UP TO THREE TIMES A DAY., Disp: , Rfl: clopidogrel (Plavix) 75 MG tablet, Take 1 tablet (75 mg) by mouth Daily, Disp: 90 tablet, Rfl: 0 ferrous sulfate (Fe Tabs) 325 (65 Fe) MG EC tablet, Take 1 tablet (325 mg) by mouth in the morning and 1 tablet (325 mg) at noon and 1 tablet (325 mg) in the evening. Take with meals. Do not crush, chew, or split., Disp: 90 tablet, Rfl: 3 fludrocortisone (Florinef) 0.1 MG tablet, Take 2 tablets (0.2 mg) by mouth Daily, Disp: 180 tablet,Rfl: 3 furosemide (Lasix) 20 MG tablet, Take 1 tablet (20 mg) by mouth Daily, Disp: 30 tablet, Rfl: 11 hydrALAZINE (Apresoline) 25 MG tablet, Take 25 mg by mouth in the morning and 25 mg before bedtime., Disp: , Rfl: levothyroxine (Synthroid, Levoxyl) 100 MCG tablet, Take 1 tablet (100 mcg) by mouth Daily, Disp: 30tablet, Rfl: 5 losartan (Cozaar) 25 MG tablet, Take 25 mg by mouth Daily, Disp: , Rfl: metoprolol succinate XL (Toprol-XL) 100 MG 24 hr tablet, Take 1 tablet (100 mg) by mouth Daily, Disp: 30 tablet, Rfl: 11 midodrine (Proamatine) 5 MG tablet, Take 5 mg by mouth in the morning and 5 mg in the evening. Takewith meals., Disp: , Rfl: montelukast (Singulair) 10 MG tablet, Take 1 tablet (10 mg) by mouth at bedtime, Disp: 30 tablet, Rfl: 11 omeprazole (PriLOSEC) [address] capsule, Take 1 capsule (40 mg) by mouth in the morning. Take beforemeals. Do not crush or chew., Disp: 30 capsule, Rfl: 3 oxybutynin XL (Ditropan XL) 10 MG 24 hr tablet, Take 1 tablet (10 mg) by mouth Daily Do not crush, chew, or split., Disp: 30 tablet, Rfl: 11 Roflumilast 500 MCG tablet, Take 1 tablet by mouth once daily, Disp: 30 tablet, Rfl: 0 rOPINIRole (Requip) 2 MG tablet, Take 1 tablet (2 mg) by mouth at bedtime, Disp: 90 tablet, Rfl: 3 traZODone (Desyrel) 150 MG tablet, Take 1 tablet (150 mg) by mouth at bedtime, Disp: 90 tablet, Rfl: 3 albuterol HFA 90 mcg/act inhaler, Inhale 2 puffs every 4 (four) hours if needed for shortness of breath or wheezing, Disp: 18 g, Rfl: 5 Momzxxzvrgl-Fktrhpykb-Vclywz (Trelegy Ellipta) 100-62.5-25 MCG/ACT aerosol powder , Inhale 1 puff Daily, Disp: 60 each, Rfl: 5 Past Medical History: Past Medical History: Diagnosis Date Lumbosacral spondylosis without myelopathy 05/03/2025 Presence of Watchman left atrial appendage closure device 04/26/2025 Scoliosis due to degenerative disease of spine in adult patient 05/03/2025 Social History: Social History Tobacco Use Smoking status: Never Smokeless tobacco: Never Substance Use Topics Alcohol use: Not on file Vitals: Pulse 90 Ht 5' 4 SpO2 99% BMI 15.79 kg/m?? Exam: Heart: regular rate Lungs: clear to auscultation bilaterally, no wheezes/rales/rhonchi, no resp distress Extremities: Bilateral lower extremity edema noted, no visible rashes Neuro: alert, oriented x3 Imaging Reviewed: Report of chest x-ray from March 2025 reviewed- - no acute findings, stable enlargement of the heart, hyperinflated lungs, blunting of the left and right costophrenic angles due to pleural effusion and/or pleural thickening Echocardiogram report from April 2025 reviewed-- EF 55-60 %, small to moderate circumferential pericardial effusion without tamponade physiology, thickened aortic valve cusp with mild calcified cusp and gwqw-lk-ohozcmqh regurgitation, oaku-wn-foobuyef tricuspid valve regurgitation, no comment on an RVSP Assessment/Plan: Diagnoses and all orders for this visit: Chronic obstructive pulmonary disease, unspecified COPD type (HCC) - albuterol HFA 90 mcg/act inhaler; Inhale 2 puffs every 4 (four) hours if needed for shortness of breath or wheezing COPD, mild (HCC) - Bhjbhtoedls-Yhstpidzq-Swozhx (Trelegy Ellipta) 100-62.5-25 MCG/ACT aerosol powder ; Inhale 1 puffDaily COPD -- she does still note some shortness of breath. However I again do feel that this is multifactorial in nature. She does have a component of COPD and does currently use Trelegy once daily. She states she does have albuterol but does not use this very much at all. We discussed using this more regularly given her current complaints of symptoms. We discussed using this at least once per day when she gets up in the morning and does the Trelegy. She did request a refill for Trelegy as well as albuterol at today's office visit. These were sent to the pharmacy. Initially we discussed following here in a few months time, however she states they do go to [place] for the winter. They do leave in May and will return at the beginning of November. She will follow here in November when she returns from [place]. The patient and her understand the plan and are agreeable. Follow up in about 7 months (around 12/01/2025) for COPD. Susie Quintero DO documented in this encounter Plan of Treatment Upcoming Encounters Date Type Department Care Team (Late st Contact Info) Description 12/13/2025 11:00 AM EDT Office Visit [facility] [address] [place] [address] Susie Quintero DO [address] [place] [address] documented as of this encounter Visit Diagnoses Diagnosis Chronic obstructive pulmonary disease, unspecified COPD type (HCC) COPD, mild (HCC) documented in this encounter Additional Health Concerns Assessment Noted Time PHQ-9 Depression Total Score: 6 12/08/19 25 1:00 PM EDT documented as of this encounter Care Teams Roof Shingler Relationship Specialty Start Date End Date Douglas Will MD PCP - General Family Medicine 12/16/23 documented as of this encounter
--- OUTSIDE RECORDS SUMMARY | 2025-05-10 09:54 | XMS_ITS | Continuity of Care Document ---
Author Organization [facility] Address [address] [place] [address] Phone Care Team Providers Care Payroll Technician Name Role Phone Douglas Will MD Primary Care Provider Atilio Wade MD Attending Provider Care Teams Patient Care Team Team Status: Active Member Role Status Dates Douglas Will MD Primary Care Provider Active Patient Care Team Team Status: Inactive Member Role Status Dates Douglas Will MD Primary Care Provider Active S tart: May 10, 2025 End: May 10, 2025 Atilio Wade MD Attending Provider Active S tart: May 10, 2025 End: May 10, 2025 Chief Complaint and Reason for Visit Chief Complaint Admit Date esophageal stricture/REFER April 1:25pm Reason for Visit Admit Date Dysphagia May 10, 2025 1:25pm Esophageal stricture May 10 1:25pm Allergies, Adverse Reactions, Alerts Allergen Type Severity Reaction Last Updated Verified Status acetaminophen Allergy Unknown May 2:30pm Yes Active cobalt Allergy Unknown Unknown Reaction June 11, 2023 2:30pm No Active codeine Allergy Unknown June 11, 2023 2:30pm Yes Active gold Au 198 Allergy Unknown Unknown Reaction June 11, 2023 2:30pm No Active latex Allergy Unknown Hives June 11, 2023 2:30pm No Active nickel Allergy Unknown Unknown Reaction June 11, 2023 2:30pm No Active Social History Smoking Status Status Start Date End Date Date of Observa tion Ex-smoker (finding) r 2024 1:39pm Observation Status Observation Response Date of Response Legal Sex Female (finding) Sex Assigned At Female [birth year] Family History Relationship Condition Age at Onset Recorded Date/T leonel brother Unknown father Family history of other condition Unknown Unknown family member Diabetes mellitus Unknown Hypertension Unknown mother Family history of colon cancer Unknown Malignant neoplasm Unknown Hypertension Unknown Unknown Problems Active Problems Medical Problem Onset Date Status Unsteadiness on feet Unknown Active Vitiligo Unknown Active 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 H/O Clostridium difficile infection Unknown Active CARISA (obstructive sleep apnea) Unknown Ac tive History of esophagomyotomy Unknown 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 Unknown Active Primary osteoarthritis of right knee Unknown Active Complex regional pain syndrome of right lower ex tremity Unknown Active Presence of right artificial knee joint Unknown Active Acute respiratory failure with hypoxia Unknown Active CTS (carpal tunnel syndrome) Unknown Act patience Sacroiliac inflammation Unknown Active Hx of phlebitis Unknown Active Family history of colon cancer Unknown A ctive History of cardiac cath Unknown Active Artificial knee joint present Unknown Ac tive Actinic keratoses Unknown Active Stented coronary artery Unknown Active Dyspnea on exertion Unknown Active Osteoarthritis of knees, bilateral Unknown Active Chronic rhinitis Unknown Active Cellulitis of skin Unknown Active Pleuritic chest pain Unknown Active Dizziness Unknown Active Centrilobular emphysema Unknown Active Acute kidney failure, unspecified Unknown Active Diverticular disease Unknown Active Diverticulosis Unknown Active Coronary artery disease Unknown Active Increased thirst Unknown Active Dysautonomia orthostatic hypotension syndrome Un known Active History of electroconvulsive therapy Unknown Active Dysphagia Unknown Active Depression Unknown Active Fibromyalgia Unknown Active Migraine headache Unknown Active History of inferior vena caval filter placement Unknown Active Mixed hyperlipidemia Unknown Active Angina of effort Unknown Active Supplemental oxygen dependent Unknown Ac tive Hypercoagulable state, secondary Unknown Active Chronic kidney disease, unspecified Unknown Active detention (current) use of antithrombotics/antip latelets Unknown Active Pulmonary nodule Unknown Active Lumbago with sciatica, left side Unknown Active Osteoarthritis Unknown Active Physical deconditioning Unknown Active Elevated hemoglobin A1c Unknown Active Other chronic pain Unknown Active Abnormal cardiovascular stress test Unknown Active Respiratory failure Unknown Active Restless leg Unknown Active Vasomotor rhinitis Unknown Active Syncope and collapse Unknown Active Telangiectasia Unknown Active Multiple falls Unknown Active Ground glass opacity present on imaging of lung Unknown Active Schatzki's ring Unknown Active Seasonal allergic rhinitis due to pollen Unknown Active Despondency Unknown Active BMI 32.0-32.9,adult Unknown Active Orthostatic hypertension Unknown Active Chronotropic incompetence with autonomic dysfunc tion Unknown Active CPAP (continuous positive airway pressure) depen dence Unknown Active Uses walker Unknown Active Balance problem Unknown Active COPD exacerbation Unknown Active History of pulmonary embolism Unknown Ac tive Rosacea Unknown Active Esophageal stricture Unknown Active Dyskinesia of esophagus Unknown Active Allergic rhinitis Unknown Active Chronic diastolic CHF (congestive heart failure) Unknown Active Difficulty walking Unknown Active Hiatal hernia Unknown Active Asthma Unknown Active Inactive/Resolved Problems Medical Problem Onset Date Status Noninfected skin tear of leg Unknown Res olved Medications Medication Status Dose Units Route Directions Qty Days St art Date Stop Date End Date Instructions Adherence Metoprolol Succinate 50 mg tablet extended release 24 hr Discont inued 50 MG PO Daily 2022 12:00a m November 29, 2024 6:46p m Warfarin 7.5 mg tablet Discont inued 7.5 MG PO As Directed 2022 12:00a m November 29, 2024 6:37p m Hydralazine 25 mg tablet Discont inued 25 MG PO Daily 2022 12:00a m Psychiatric 2024 1:35p m Clopidogrel 75 mg tablet Active 75 MG PO Daily 2022 12:00a m Complies with drug therapy Amlodipine 5 mg tablet Discont inued 5 MG PO Daily 2022 12:00a m November 29, 2024 6:44p m Levothyroxi ne 100 mcg tablet Active 100 MCG PO Daily 2022 12:00a m Complies with drug therapy Pantoprazol e 40 mg Tablet,Sobeida yed Release (Dr/Ec) Discont inued 40 MG PO Daily 2022 12:00a m Psychiatric 2024 1:35p m Trazodone 150 mg tablet Active 150 MG PO Bedtime 2022 12:00a m Complies with drug therapy Montelukast 10 mg tablet Active 10 MG PO Daily 2022 12:00a m Complies with drug therapy Carbidopa-L evodopa 25-100 mg tablet Discont inued 1 TAB PO Bedtime 2022 12:00a m Psychiatric 2024 1:33p m Fluticasone Propionate 50 mcg/actuati on spray,suspe nsion Discont inued 2 SPRAY INTRAN SVETLANA Daily 2022 12:00a m [facility]2024 1:34p m Fludrocorti sone 0.1 mg tablet Discont inued 0.1 MG PO Daily 2022 12:00a m [facility]2024 1:38p m Fluticasone -Umeclidin- Vilanter (Trelegy Ellipta) 100-62.5-25 mcg blister with device Active 1 INH INHALA TION Daily 2022 12:00a m Complies with drug therapy Fludrocorti sone 0.1 mg tablet Active 0.2 MG PO Daily 2024 1:33pm Complies with drug therapy Famotidine 40 mg tablet Active 40 MG PO Daily Apr 2024 12:00a m Complies with drug therapy Metoprolol Succinate 100 mg tablet extended release 24 hr Active 100 MG PO Daily 2024 12:00a m Complies with drug therapy Albuterol Sulfate (Ventolin Hfa) 90 mcg/actuati on HFA aerosol inhaler Active INHALA TION Apr 2024 12:00a m Complies with drug therapy Roflumilast 500 mcg tablet Active 500 MCG PO Daily Apr 2024 12:00a m Complies with drug therapy Cephalexin 500 mg capsule Discont inued 500 MG PO Q8H 21 7 November 29, 2024 12:00a m Psychiatric 2024 1:33p m Apixaban (Eliquis) 5 mg tablet Discont inued 2.5 MG PO Twice daily November 29, 2024 12:00a m [facility]2024 1:32p m Ropinirole 1 mg tablet Discont inued 1 MG PO Daily at bedtime November 29, 2024 12:00a m Psychiatric 2024 1:38p m Oxybutynin Chloride 10 mg tablet extended release 24hr Active MG PO November 29, 2024 12:00a m Complies with drug therapy Furosemide 20 mg tablet Discont inued 20 MG PO Daily November 29, 2024 12:00a m Psychiatric 2024 1:35p m Atorvastati n 40 mg tablet Active 40 MG PO Daily at bedtime November 29, 2024 12:00a m Complies with drug therapy Celecoxib 200 mg capsule Active 200 MG PO Twice daily November 29, 2024 12:00a m Complies with drug therapy Clonidine Hcl 0.2 mg tablet Active 0.2 MG PO Daily November 29, 2024 12:00a m Complies with drug therapy Amlodipine 10 mg tablet Discont inued 10 MG PO Daily November 29, 2024 12:00a m Psychiatric 2024 1:32p m Olmesartan 40 mg tablet Discont inued 40 MG PO Daily November 29, 2024 12:00a m Psychiatric 2024 1:35p m Ropinirole 1 mg tablet Active 2 MG PO Daily at bedtime 2024 1:35pm Complies with drug therapy Immunizations Immunization Event Date Not Given Reason Dose Number Student Services Representative Lot Number Vaccine Information Statement (VIS) Detail Administration Location influenza, unspecified formulation April 23, 2017 influenza, unspecified formulation May 17, 2018 influenza, unspecified formulation May 27, 2019 Pneumococcal Polysacc. Vaccine, 23 valent August 17, 1998 Pneumococcal Polysacc. Vaccine, 23 valent August 17, 2007 Pneumococcal Polysacc. Vaccine, 23 valent June 02, 2011 Vital Signs Vital Reading Result Reference Range Collection Date/Time Height 61.5 [in_i] May 10, 2025 1:30pm Weight 40.82 kg May 10, 2025 1:30pm BMI (Body Mass Index) 16.7 kg/m2 2024 1:30pm Advance Directives Advance Directive Response Recorded Date/ Time Advance Directives No December 23, 2021 4:18pm Insurance Providers Guarantor Nahomy Marquez Address [address] [place] [address] [address] [place] [id number] Contact Info. Home Phone: Payer Policy Id Subscriber's Name Subscriber Id Effectiv e Date Expiration Date Medicare [id number] Nahomy Marquez [id number] [facility] [id number] Nahomy Marquez [id number] Encounters Encounter Location(s) Arrival/Admit Date Discharge/Depart Date Provider(s) Departed Physician/Prov ider Office Visit -[facility] May 10, 2025 1:25pm May 10, 2025 1:53pm Atilio Wade MD Recent Diagnosis Onset Date Admit Date Dysphagia Unknown May 10, 2025 1:25pm Esophageal stricture Unknown April 182024 1:25pm Assessments Diagnosis Onset Date Resolution Status Admit Date Dysphagia acute April 1:25pm Esophageal stricture acute Apr 1:25pm
--- OUTSIDE RECORDS SUMMARY | 2025-05-16 14:58 | XMS_ITS ---
Author Organization [employer] [facility] tem Address [id number] [place] [address] Care Team Providers Care Lawn Mower Repairer Name Role Phone Douglas Will MD Primary Care Provider [phone] Active Problems Patient Care Coordination No te Formatting of this note migh t be different from the original. 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 Postoperative CTA shows excellent repair. She is doing well from that standpoint. Severe protein-calorie malnutrition 12/31/2023 Generalized weakness 12/31/2023 Chronic diastolic heart failure 12/31/2023 History of DVT (deep vein thrombosis) 12/31/2023 MTHFR gene mutation 12/31/2023 Parkinson's disease 12/31/2023 Failure to thrive in adult 12/30/2023 Penetrating ulcer of aorta 12/20/2023 Assessment & Plan (01/14/2024 9:53 AM EDT): She has a small just juxtarenal penetrating aortic ulcer. Will conservatively manage this for now. Will serially examine her. Will get a CT of the chest abdomen pelvis in 6 months Hypertensive emergency 11/23/2023 Aortic dissection 11/23/2023 Assessment & Plan (07/13/2024 1:15 PM EST): Surveillance imaging in a year Achalasia 04/16/2023 Infection of prosthetic right knee joint 023 Asthma 02/04/2023 Atrial fibrillation 02/04/2023 Breast cancer 02/04/2023 CAD (coronary artery disease) 02/04/2023 Chronic bronchitis 02/04/2023 Diastolic dysfunction 02/04/2023 Fibromyalgia 02/04/2023 HTN (hypertension) 02/04/2023 Hyperlipemia 02/04/2023 Hypothyroidism 02/04/2023 OA (osteoarthritis) 02/04/2023 Pneumonia 02/04/2023 Pulmonary embolism 02/04/2023 Pulmonary hypertension 02/04/2023 Shortness of breath 06/10/2018 C. difficile colitis 04/17/2018 Orthostatic hypotension 03/17/2018 History of tobacco use 12/17/2017 Chronic anticoagulation 12/17/2017 Thrombophilia 12/17/2017 CARISA (obstructive sleep apnea) 12/17/2017 History of pulmonary embolism 12/17/2017 Chronic obstructive pulmonary disease 12/17/2017 Current Treatment and Therapy Plans No current plan information found. Past Treatment and Therapy Plans No past plan information found. Lifetime Dose Tracking * Chemical Lifetime Dose Automatic Entry Manual Entr y Fluoroscopy 581 mGy 581 mGy 0 mGy Resolved Problems Problem Noted Date Diagnosed Date Resolved Date Pulmonary nodule 12/17/2017 12/17/2017 Chronic respiratory failure with hypoxia 12/17/2017 12/17/2017 Acute bronchitis 12/17/2017 06/10/2018
--- OUTSIDE RECORDS SUMMARY | 2025-05-16 14:58 | XMS_ITS | Encounter Summary ---
Author Organization [facility] Address [address] [place] [address] Care Team Providers Care Cork Cutter Name Role Phone Douglas Will MD Primary Care Provider [phone] Ke Marte MA Unavailable [phone] Encounter Details Date Type Department Care Team (Late st Contact Info) Description 04/03/2025 Results Follow-Up [facility] [address] [place] [address] Douglas Will MD [address] [place] [address] CBC auto differential, Basic metabolic panel Social History Tobacco Use Types Packs/Day Years [...] often do you attend chur ch or evangelical services? Never 01/20/2025 Do you belong to any clubs o r organizations such as pentecostalism groups, unions, fraternal or athletic groups, or [...] Recorded Patient Health Questionnaire-2 Score 0 12/07/2024 [facility] of Occupat ional Health - Occupational Stress [...] any time in the past 12 m [facility], were you homeless or living in a alf (including now)? No 01/20/2025 Comments Unknown Sex and Gender Information Value Date Recorded Sex Assigned at Not on file Legal Sex Female 7:28 PM EDT Gender Identity Female 10/29/2022 7:28 PM EDT Sexual Orientation Not on file documented as of this encounter Plan of Treatment Upcoming Encounters Date Type Department Care Team (Late st Contact Info) Description 12/13/2025 11:00 AM EDT Office Visit [facility] [address] [place] [address] Susie Quintero, DO [address] [place] [address] documented as of this encounter Visit Diagnoses Not on filedocumented in this encounter Additional Health Concerns Assessment Noted Time PHQ-9 Depression Total Score: 6 12/08/19 25 1:00 PM EDT documented as of this encounter Care Teams Cork Cutter Relationship Specialty Start Date End Date Douglas Will MD PCP - General Family Medicine 12/16/23 Ke Marte, BEBE [address] [place] [address] Family Medicine 01/20/25 04/11/25 documented as of this encounter
--- OUTSIDE RECORDS SUMMARY | 2025-05-16 14:58 | XMS_ITS | Clinical Summary ---
Author Organization [employer] [facility] tem Address [id number] [address] [place] [address] Care Team Providers Care Shredded Filler Machine Wrapper Layer Name Role Phone Douglas Will MD Primary Care Provider [phone] Allergies Active Allergy Reactions Criticality Noted Date Comments [place] Rash Low 12/05/2016 Codeine Nausea Medium 04/08/2018 Droxidopa Shortness Of Breath High 02/14/2020 Gold Au 198 Itching Low 12/05/2016 Gold Keratinate Itching Low 12/05/2016 Latex Rash Low 12/05/2016 Levonorgestrel-Ethiny l Estrad Itching,Cough Medium 11/19/2015 Nickel Hives Low 12/05/2016 Other Other (See Comments) 10/04/2018 Annotation - [id number]: Nickel, [place], Gold Compounding Medications celecoxib (CeleBREX) 200 mg capsuleIndicati ons:osteoarthri tis Take 1 capsule (200 mg total) by mouth in the morning and 1 capsule (200 mg total) before bedtime. Indications: joint damage causing pain and loss of function. 2 Active clopidogreL (PLAVIX) 75 mg tabletIndicatio ns:thrombosis prevention after PCI Take 1 tablet (75 mg total) by mouth in the morning. Indications: blood clot prevention following percutaneous coronary intervention. 2 Active fluticasone-ume clidin-vilanter (TRELEGY ELLIPTA) 100-62.5-25 mcg blister with device Inhale 1 puff once daily. 180 each 3 3 Active montelukast (SINGULAIR) 10 mg tablet Take 1 tablet (10 mg total) by mouth nightly. 3 Active metoprolol succinate 100 mg capsule,sprinkl e,ER 24hr Take 100 mg by mouth in the morning. Active atorvastatin (LIPITOR) 40 mg tablet Take 1 tablet (40 mg total) by mouth nightly. 90 tablet 4 Active fludrocortisone (FLORINEF) 0.1 mg tablet Take 2 tablets (0.2 mg total) by mouth in the morning. 4 Active levothyroxine (SYNTHROID, LEVOTHROID) 100 MCG tablet Take 1 tablet (100 mcg total) by mouth in the morning. 4 Active oxybutynin XL (DITROPAN-XL) 10 mg 24 hr tablet 4 Active rOPINIRole (REQUIP) 1 mg tablet Take 1 tablet (1 mg total) by mouth. Active sodium fluoride-pot nitrate 1.1-5 % paste 4 Active traZODone (DESYREL) 150 mg tablet Take 150 mg by mouth. Active ELIQUIS 5 mg tablet TAKE 1/2 (ONE-HALF) TABLET BY MOUTH IN THE MORNING AND 1/2 (ONE-HALF) AT BEDTIME 60 tablet 5 Active cloNIDine (CATAPRES) 0.2 mg tablet Take 1 tablet (0.2 mg total) by mouth 3 (three) times a day as needed for high blood pressure. Active cyanocobalamin 1000 MCG tablet Take 1 tablet (1,000 mcg total) by mouth in the morning. 30 tablet 5 Active Active Problems Patient Care Coordination No te [...] embolism 12/17/2017 Chronic obstructive pulmonary disease 12/17/2017 Resolved Problems Problem Noted Date Diagnosed Date Resolved Date Pulmonary nodule 12/17/2017 12/17/2017 Chronic respiratory failure with hypoxia 12/17/2017 12/17/2017 Acute bronchitis 12/17/2017 06/10/2018 Encounters Date Type Department Care Team Description 03/31/2025 Lab Requisition [facility] - Lab [address] [place] [address] Douglas Will MD Acute kidney failure, unspecified from Last 3 Months Immunizations Immunization Administration Dates Next Due Influenza High Dose Preserva tive Free IM 06/25/2021,05/10/2020,05/27/2019,05/17 Influenza Whole 05/17/2014 Influenza, High-dose, Quadrivalent 05/02/2023, Influenza, Im Trivalent Preservative 05/08/2018 Influenza, Unspecified 05/02/2023,2021,06/25/2021,05/10,06/17/2019,05/27/2019,05/17/2018 ,05/08/2018 Pneumococcal Conjugate 13-Valent 11/27/2016,12/2014 Pneumococcal Conjugate 20-valent 05/02/2023 Pneumococcal Polysaccharide 06/03/2011, 8,08/17/1998 Tdap 02/10/2023,06/30/2018,06/22/2018 Zoster Live 05/12/2013 Zoster Vaccine Recombinant 06/23/2023,05/02/2023 Family History Medical History Relation Name Comments Pulmonary embolism Father Colon cancer Mother Hypertension Mother Anesthesia problems Neg Hx Relation Name Status Comments Brother Father Mother Son 1 Alive Son 2 Alive Son 3 Alive Son 4 Alive Son 5 Alive Social History Tobacco Use Types Packs/Day Years Used Date Smoking Tobacco: Former Cigarettes 2 29 1 951 - 1980 Smokeless Tobacco: Never Tobacco Cessation:Counseling Given: Not Answered Comments:Smoked less in past Alcohol Use Standard Drinks/Week Comments No 0 (1 standard drink = 0.6 oz pur e alcohol) [employer] Answer Date Recorded In the past 12 months has Nativis, gas, oil, or water [employer] threatened to shut off services in your home? No 12/13/2024 Social Connection and Isolat ion Panel [NHANES] Answer Date Recorded In a typical week, how many times do you talk on the phone with family, friends, or neighbors? More than three times a week 05/21/2023 Frequency of Social Gatherin gs with Friends and Family Not on file 05/21/2023 Attends Pentecostalism Services Not on file 05/21 Active Member of Clubs or Organizations Not on f ile 05/21/2023 Attends Club or Organization Meetings Not on naima e 05/21/2023 Marital Status Not on file 05/21/2023 AUDIT-C Answer Date Recorded Q1: How often do you have a drink containing alcohol? Never 12/21/2023 Q2: How many drinks containi ng alcohol do you have on a typical day when you are drinking? Patient does not drink Q3: How often do you have si x or more drinks on one occasion? Never 12/21/2023 PHQ-2 Answer Date Recorded Total Score 0 12/21/2023 [facility] of Occupat ional Health - Occupational Stress Questionnaire Answer Date Recorded Do you feel stress - tense, restless, nervous, or anxious, or unable to sleep at night because your mind is troubled all the time - these days? Not at all 05/21/2023 PRAPARE - Transportation Answer Date Re corded In the past 12 months, has l ack of transportation kept you from medical appointments or from getting medications? No 11/16 In the past 12 months, has l ack of transportation kept you from meetings, work, or from getting things needed for daily living? No 12/13/2024 Housing Instability Answer Date Recorde d Are you worried or concerned that in the next two months you may not have stable housing that you own, rent or stay in as a part of a household? No 12/13/2024 Childcare Answer Date Recorded Childcare Unknown 01/17/2019 Employment Answer Date Recorded Employment Unknown 01/17/2019 Hunger Screening Answer Date Recorded Within the past 12 months we worried whether our food would run out before we got money to buy more. Never True 12/13/2024 Within the past 12 months th e food we bought just didn't last and we didn't have money to get more. Never True 12/13/2024 Purpose - Life Answer Date Recorded Purpose and direction in life Unknown Comments No Sex and Gender Information Value Date Recorded Sex Assigned at Not on file Legal Sex Female 11:22 AM EDT Gender Identity Not on file Sexual Orientation Not on file Last Filed Vital Signs Vital Sign Reading Time Taken Comments Blood Pressure 166/68 12/16/2024 11:08 AM EDT Pulse 63 12/16/2024 11:08 AM EDT Temperature 36.7 C (98 F) 12/16/2024 11:08 AM EDT Respiratory Rate 16 12/16/2024 11:08 AM EDT Oxygen Saturation 99% 12/16/2024 11:08 AM EDT Inhaled Oxygen Concentration - - Weight 44.3 kg (97 lb 11.2 oz) 12/13/2024 9:03 P M EDT Height 160 cm (5' 3 ) 12/13/2024 9:03 PM EDT Body Mass Index 17.31 12/13/2024 9:03 PM EDT Plan of Treatment Upcoming Encounters Date Type Department Care Team (Late st Contact Info) Description 05/25/2025 11:40 AM EDT Office Visit [facility] [address] [place] [address] Fadi Higgins MD [address], [address] [address] 06/12/2025 1:30 PM EDT Office Visit [facility] [address] [facility] [address] Emma Ledezma MD [address] [place] [address] Health Maintenance Due Date Last Done Comments Fall Risk Screening 2004 Depression Screening 12/20/2024 12/21/2023 COVID-19 Vaccine ( - 2024-2 6 season) 2025 07/18/2023, 04/15/2022, 06/25/2021 Influenza Vaccine 04/17/2025 04/27/2024, , 05/02/2023, Additional history exists Tobacco Screening 12/13/2025 12/13/2024 DTaP,Tdap and Td Vaccines (4 - Td or Tdap) 02/10/2033 02/10/2023, 06/30/2018, 06/22/2018 Zoster (Shingles) Vaccine Completed 2022, 05/02/2023, 05/12/2013 Medical Devices Implanted Type Area Cement Finisher Helper Device Identifier Shelf Expiration Date Model / Serial / Lot Stent 7fr 135cm Vbx Ba Ppm Expandable Cath Hep Vbhn Eprsth 8 Rpl [id number] - [id number] - [id number] Implanted:Qty: 1 on 11/28/2023 by Fadi Higgins MD at [facility] Stent N/A: Arterial Finley 2026 [id number] / [id number] / Graft Stnt 192mm 32mm 22fr Valiant Captivia Sinusoidal Str - [id number] - [id number] Implanted:Qty: 1 on 11/28/2023 by Fadi Higgins MD at [facility] Stent N/A: Aorta [employer] 02/04/2025 [id number] 32C2 00TU / [id number] / Graft Stnt 192mm 22fr Valiant Captivia Cls 30mm - [id number] - [id number] Implanted:Qty: 1 on 11/28/2023 by Fadi Higgins MD at [facility] Stent N/A: Aorta [employer] 04/14/2024 [id number] 30C2 00TU / [id number] / Procedures Procedure Name Priority Date/Time Associated Diagnosis Comments CBC WITH AUTO DIFFERENTIAL Routine 03/31/2025 11:00 AM EDT Acute kidney failure, unspecified BASIC METABOLIC PANEL Routine 03/31/2025 11:00 AM EDT Acute kidney failure, unspecified from Last 3 Months Results * (ABNORMAL) CBC auto differential (03/31/2025 11:00 AM EDT) [facility] WBC 5.3 4 - 11 x10E9/L 03/31/2025 1:18 PM EDT [facility] RBC Count 2.74(L) 3.8 - 5.2 X10E12/L 03/31/2025 1:18 PM EDT [facility] Hemoglobin 7.7(L) 11.7 - 15.5 g/dL 03/31/2025 1:18 PM EDT [facility] Hematocrit 23.0(L) 35 - 47 % 03/31/2025 1:18 PM EDT [facility] MCV 84 80 - 100 fL 03/31/2025 1:18 PM EDT [facility] MCH 28.2 27 - 34 pg 03/31/2025 1:18 PM EDT [facility] MCHC 33.6 32 - 36 g/dL 03/31/2025 1:18 PM EDT [facility] RDW 18.2(H) 11.5 - 15 % 03/31/2025 1:18 PM EDT [facility] Platelet Count 267 150 - 450 X10E9/L 03/31/2025 1:18 PM EDT [facility] MPV 7.7 7 - 12 fL 03/31/2025 1:18 PM EDT [facility] Neutrophils % 81.9 % 03/31/2025 1:18 PM EDT [facility] Lymphocytes % 11.0 % 03/31/2025 1:18 PM EDT [facility] Monocytes % 5.6 % 03/31/2025 1:18 PM EDT [facility] Eosinophils % 0.7 % 03/31/2025 1:18 PM EDT [facility] Basophils % 0.8 % 03/31/2025 1:18 PM EDT [facility] Neutrophils Absolute (A) 4.3 1.5 - 6.6 10*3/uL 03/31/2025 1:18 PM EDT [facility] Lymphocytes Absolute 0.6(L) 1.0 - 3.5 10*3/uL 03/31/2025 1:18 PM EDT [facility] Monocytes Absolute 0.3 0.0 - 0.9 10*3/uL 03/31/2025 1:18 PM EDT [facility] Eosinophils Absolute 0.0 0.0 - 0.4 10*3/uL 03/31/2025 1:18 PM EDT [facility] Basophils Absolute 0.0 0.0 - 0.2 10*3/uL 03/31/2025 1:18 PM EDT [facility] Differential Type AUTOMATED DIFFERENTIAL 03/31/2025 1:18 PM EDT [facility] Blood Venous blood / Unknown 03/31/2025 11:00 AM EDT 03/31/2025 12:50 PM EDT us Douglas Will MD LAB BLOOD ORDERABLES Final Resul t [facility] [address] [place] [address], [place] * (ABNORMAL) Basic Metabolic Panel (03/31/2025 11:00 AM EDT) SODIUM 136 134 - 146 mmol/L 03/31/2025 1:33 PM EDT [facility] POTASSIUM 3.7 3.5 - 5.0 mmol/L 03/31/2025 1:33 PM EDT [facility] CHLORIDE 111(H) 98 - 109 mmol/L 03/31/2025 1:33 PM EDT [facility] CARBON DIOXIDE 21(L) 22 - 32 mmol/L 03/31/2025 1:33 PM EDT [facility] ANION GAP 4(L) 5 - 15 mmol/L 03/31/2025 1:33 PM EDT [facility] BLOOD UREA NITROGEN 17 5 - 27 mg/dL 03/31/2025 1:33 PM EDT [facility] CREATININE 1.02(H) 0.40 - 1.00 mg/dL 03/31/2025 1:33 PM EDT [facility] Comment:METHOD TRACEABLE TO IDMS STANDARD GLUCOSE 106(H) 65 - 99 mg/dL 03/31/2025 1:33 PM EDT [facility] CALCIUM 8.0(L) 8.5 - 10.5 mg/dL 03/31/2025 1:33 PM EDT [facility] EGFR Non-Race Dependent 54(L) >=60 ml/min/1.7 3sq.m 03/31/2025 1:33 PM EDT [facility] Comment: eGFR not reported due to non-numeric value for Creatinine. Reported eGFR is based on the CKD-EPI 2020 equation that does not use a race coefficient. Blood Venous blood / Unknown 03/31/2025 11:00 AM EDT 03/31/2025 12:50 PM EDT us Douglas Will MD LAB BLOOD ORDERABLES Final Resul t [facility] [address] [place] [address], from Last 3 Months Insurance MEDICARE [facility] [place] [id number] Advance Directives Documents on File Type Date Recorded Patient Power Engineer Expl anation Durable Power of Territory Sales Executive 12/14/2023 12:31 PM * Full Code (Latest Code Status on File) Date Activated Date Inactivated Comments 12/13/2024 8:08 PM 12/16/2024 5:38 PM * Full Code Date Activated Date Inactivated Comments 01/15/2024 1:16 AM 01/19/2024 11:12 PM * Full Code Date Activated Date Inactivated Comments 12/31/2023 2:13 AM 01/01/2024 7:06 PM * Full Code Date Activated Date Inactivated Comments 12/20/2023 5:43 PM 12/25/2023 3:42 PM * Full Code Date Activated Date Inactivated Comments 11/23/2023 8:04 PM 11/23/2023 9:03 PM Care Teams Shredded Filler Machine Wrapper Layer Relationship Specialty Start Date End Date Douglas Will MD PCP - General Family Medicine 05/20/21
--- OUTSIDE RECORDS SUMMARY | 2025-05-16 14:58 | XMS_ITS | Encounter Summary ---
Author Organization [facility] Address [id number] [address] [place] [address] Care Team Providers Care Cutter Grinder Name Role Phone Douglas Will MD Primary Care Provider [phone] Encounter Details Date Type Department Care Team (Late st Contact Info) Description 12/08/2024 Telephone [facility] [address] [place] [address] May Gale, [facility] Social History Tobacco Use Types Packs/Day Years Used Date Smoking Tobacco: Former Cigarettes 2 29 1 951 - 1980 Smokeless Tobacco: Never Comments:Smoked less in past Alcohol Use Standard Drinks/Week Comments No 0 (1 standard drink = 0.6 oz pur e alcohol) [facility] Utilities Answer Date Recorded In the past 12 months has e electric, gas, oil, or water company threatened to shut off services in your home? No 01/15/2024 Social Connection and Isolat ion Panel [NHANES] Answer Date Recorded In a typical week, how many times do you talk on the phone with family, friends, or neighbors? More than three times a week 05/21/2023 Frequency of Social Gatherin gs with Friends and Family Not on file 05/21/2023 Attends [employer] Not on file 05/21 Active Member [...] Answer Date Recorded Total Score 0 12/21/2023 [facility] - Occup[facility] [...] medical appointments or from getting medications? No 12/17 In the past 12 months, has l ack of transportation kept you from meetings, work, or from getting things needed for daily living? No 01/15/2024 Housing Instability Answer Date Recorde d Are you worried or concerned that in the next two months you may not have stable housing that you own, rent or stay in as a part of a household? No 01/15/2024 Childcare Answer Date Recorded Childcare Unknown 01/17/2019 Employment Answer Date Recorded Employment Unknown 01/17/2019 Hunger Screening Answer Date Recorded Within the past 12 months we worried whether our food would run out before we got money to buy more. Never True 12/12/2024 Within the past 12 months th e food we bought just didn't last and we didn't have money to get more. Never True 12/12/2024 Purpose - Life Answer Date Recorded Purpose and direction in life Unknown Comments No Sex and Gender Information Value Date Recorded Sex Assigned at Not on file Legal Sex Female 11:22 AM EDT Gender Identity Not on file Sexual Orientation Not on file documented as of this encounter Miscellaneous Notes * Telephone Encounter - May Gale CMA - 12/08/2024 11:33 AM EDT Structural Technician returned patient's voicemail. Patient said she is short of breath and when stading up feels like she is going to pass out or she thinks she maybe passing out since she has been falling a lot. Structural Technician advised patient with shortness of breath and feeling like she is going to pass out when standing, she should go to the ED for evaluation. Patient said she is not going to go to the ED. Structural Technician also is reaching out to PCP so they are aware ?? Cough - denies ?? Wheezing - denies ?? SOB - with exertion ?? Fevers, body aches, chills and sick contacts: denies ?? Nebulizer: none ?? Inhaler(s): Trelegy 100 ?? Allergies: Levonorgestrel-ethinyl Estrad [place] Gold AU 198 Gold Keratinate Latex Nickel Codeine ?? Pharmacy: [facility] [place] ?? Patient last seen for: * Telephone Encounter - Jessica Bazan DO - 12/08/2024 11:33 AM EDT Needs CXR, D dimer, CMP and CBC now for dyspnea and near syncope please. * Telephone Encounter - May Gale CMA - 12/08/2024 11:33 AM EDT Structural Technician called patient and let her know that SE ordered a CXR and Labs to be done. Patient understood. Structural Technician also advised it has been awhile since she has seen KW and scheduled her for next availableappointment. * Telephone Encounter - Emma Ledezma MD - 12/08/2024 11:33 AM EDT With elevated BNP, would have her see cardiology as CTA not changed. We can see in May to also check in. documented in this encounter Plan of Treatment Upcoming Encounters Date Type Department Care Team (Late st Contact Info) Description 05/25/2025 11:40 AM EDT Office Visit [facility] [place] [address] Fadi Higgins MD [address], [address] [address] 06/12/2025 1:30 PM EDT Office Visit [facility] [address] [place] [id number] Emma Ledezma MD [address] [place], [place] [id number] documented as of this encounter Results * (ABNORMAL) D-Dimer (12/08/2024 2:52 PM EDT) [facility] D-dimer 1,419(H) <255 ng/mL DDU 12/08/2024 3:20 PM EDT [facility] Comment: Results >=255ng/mL DDU: Results may be indicative of the presence of VTE. The use of the Wells score and further diagnostic tests should be considered. Elevated D-Dimer levels can also be associated with DIC, neoplasm, , trauma and liver disease. Elevated levels of rheumatoid factor may lead to an overestimation of the D-Dimer level. PLASMA 12/08/2024 2:52 PM EDT 12/08/2024 2:54 PM EDT us Jessica Bazan DO LAB BLOOD ORDERABLES Final [facility]ult [facility] [address] [place] [address] * (ABNORMAL) Comprehensive metabolic panel (12/08/2024 2:52 PM EDT) [facility] Sodium 141 134 - 146 mmol/L 12/08/2024 10:07 PM EDT [facility] Potassium, Bld 4.2 3.5 - 5.0 mmol/L 12/08/2024 10:07 PM EDT [facility] Chloride 107 98 - 109 mmol/L 12/08/2024 10:[address] [facility] CO2 26 22 - 32 mmol/L 12/08/2024 10:[address] [facility] Anion gap 8 5 - 15 mmol/L 12/08/2024 10:[address] [facility] BUN 20 5 - 27 mg/dL 12/08/2024 10:[address] [facility] Creatinine 1.40(H) 0.40 - 1.00 mg/dL 12/08/2024 10:[address] [facility] Comment:METHOD TRACEABLE TO IDMS STANDARD Glucose 88 65 - 99 mg/dL 12/08/2024 10:[address] [facility] Calcium 8.7 8.5 - 10.5 mg/dL 12/08/2024 10:[address] [facility] Total Protein 6.4 6.0 - 8.0 g/dL 12/08/2024 10:[address] [facility] Albumin 3.6 3.2 - 5.3 g/dL 12/08/2024 10:[address] [facility] Alkaline Phosphatase 57 39 - 130 U/L 12/08/2024 10:[address] [facility] AST 18 0 - 41 U/L 12/08/2024 10:[address] [facility] ALT 9 0 - 31 U/L 12/08/2024 10:[address] [facility] Total bilirubin 0.6 0.3 - 1.2 mg/dL 12/08/2024 10:[address] [facility] eGFR (CKD-EPI)non-rac e dependent 37(L) >59 ml/min/1.7 3sq.m 12/08/2024 10:[address] [facility] Comment: Reported eGFR is based on the CKD-EPI 2020 equation that does not use a race coefficient. PLASMA 12/08/2024 2:52 PM EDT 12/08/2024 2:54 PM EDT Jessica Bazan DO LAB BLOOD ORDERABLES Final Re sult [facility] [address] [place] [address] * X-ray chest 2 views (12/08/2024 2:50 PM EDT) Anatomical Region Laterality Modality Body, Chest N/A Computed Radiogr aphy 12/09/2024 8:55 AM EDT Narrative 12/09/2024 8:55 AM EDT Chest 2 views History: Dyspnea, unspecified type Comparison: 12/21/2023 Findings: Chest 2 views. Stable cardiomediastinal silhouette. 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 No new focal opacity, effusion or pneumothorax. Impression: No evident acute cardiopulmonary process. Finalized by Juan Carlos Samson MD on 12/09/2024 8:55 AM Procedure Note Juan Carlos Samson MD - 12/09/2024 Chest 2 views History: Dyspnea, unspecified type Comparison: 12/21/2023 Findings: Chest 2 views. Stable cardiomediastinal silhouette. Stable pacemaker device and thoracicaortic stent. No new focal opacity, effusion or pneumothorax. Impression: No evident acute cardiopulmonary process. Finalized by Juan Carlos Samson MD on 12/09/2024 8:55 AM Jessica Bazan DO IMG DIAGNOSTIC IMAGING ORDERA BLES Final Result documented in this encounter Visit Diagnoses Diagnosis Dyspnea, unspecified type- Primary Syncope, unspecified syncope type Dyspnea, unspecified type documented in this encounter Additional Health Concerns Assessment Noted Time PHQ-9 Depression Total Score: 0 12/21/19 24 10:24 AM EDT documented as of this encounter Care Teams Cutter Grinder Relationship Specialty Start Date End Date Douglas Will MD PCP - General Family Medicine 05/20/21 documented as of this encounter
--- OUTSIDE RECORDS SUMMARY | 2025-05-16 14:58 | XMS_ITS | Clinical Summary ---
Author Organization [facility] Address [address] [place] [address] Care Team Providers Care Curtain Cleaner Name Role Phone Douglas Will MD Primary Care Provider [phone] Allergies Active Allergy Reactions Criticality Noted Date Comments Acetaminophen-Codeine Nausea Only,Other, GI intolerance Medium 03/31/2011 Other reaction(s): Abdominal Pain [place] Itching,Rash,Other Low 03/01/2014 Other reaction(s): Welts Codeine [...] l Estrad Itching,Cough,Runny nose Medium 11/19/2015 Medications warfarin (Coumadin) 5 mg tablet TAKE ONE 5MG TABLET ON THURSDAY, THURSDAY, THURSDAY AND THURSDAY. TAKE 7.5 ON THE OTHER DAYS. 3 Active triamcinolone (Kenalog) 0.1 % cream triamcinolone acetonide 0.1 % topical cream 2 Active traZODone (Desyrel) 150 mg tablet 3 Active traMADol (Ultram) 50 mg tablet TAKE 1 TO 2 TABLETS BY MOUTH EVERY 8 HOURS NEEDED FOR PAIN FOR UP TO 7 DAYS 2 Active tiotropium (Spiriva Respimat) 2.5 mcg/actuation inhaler in the morning. Acti ve sotalol (Betapace) 120 mg tablet in the morning. Acti ve sodium fluoride-pot nitrate 1.1-5 % paste BRUSH WITH A PEA SIZE AMOUNT TWICE DAILY IN PLACE OF REGULAR TOOTHPASTE 2 Active roflumilast (Daliresp) 500 mcg tablet 3 Active PARoxetine (Paxil) 20 mg tablet TAKE 1 TABLET BY MOUTH ONCE DAILY AT NIGHT 3 Active pantoprazole (ProtoNix) 40 mg EC tablet 3 Active oxybutynin (Ditropan) 5 mg tablet Take 5 mg by mouth at bedtime. 3 Active omeprazole (PriLOSEC) [address] capsule omeprazole 40 mg capsule,delayed release Active nebivolol (Bystolic) 5 mg tablet Take 10 mg by mouth twice a day. Active mupirocin (Bactroban) 2 % ointment 2 Active montelukast (Singulair) 10 mg tablet Take 10 mg by mouth at bedtime. 3 Active metoclopramide (Reglan) 10 mg tablet 3 Active losartan (Cozaar) 100 mg tablet losartan 100 mg tablet Active levothyroxine (Synthroid, Levoxyl) 100 mcg tablet 3 Active levocetirizine (Xyzal) 5 mg tablet Take 5 mg by mouth in the evening. 2 Active ipratropium (Atrovent) 42 mcg (0.06 %) nasal spray ipratropium bromide 42 mcg (0.06 %) nasal spray Active hydrALAZINE (Apresoline) 25 mg tablet every 4 (four) hours. 0 Active gabapentin (Neurontin) 300 mg capsule gabapentin 300 mg capsule Active furosemide (Lasix) 20 mg tablet Take 20 mg by mouth in the morning. 3 Active Trelegy Ellipta 100-62.5-25 mcg blister with device 3 Active fluticasone (Flonase) 50 mcg/actuation nasal spray 3 Active fludrocortison e (Florinef) 0.1 mg tablet 3 Active doxycycline (Monodox) 100 mg capsule 3 Active docusate sodium (Colace) 100 mg capsule TAKE 1 CAPSULE BY MOUTH TWICE DAILY NEEDED FOR CONSTIPATION 2 Active diclofenac (Voltaren) 1 % topical gel diclofenac 1 % topical gel Active clopidogrel (Plavix) 75 mg tablet 3 Active cholecalcifero l (Vitamin D-3) 1,250 mcg (50,000 unit) capsule Take 50,000 Units by mouth 1 (one) time per week. 2 Active celecoxib (CeleBREX) 200 mg capsule Take 200 mg by mouth in the morning and at bedtime. 3 Active cefdinir (Omnicef) 300 mg capsule Take 300 mg by mouth in the morning and at bedtime. 2 Active carbidopa-levo dopa (Sinemet) 25-100 mg tablet Take 1 tablet by mouth at bedtime. 3 Active calcium carbonate (Tums) 200 mg calcium (500 mg) chewable tablet Chew 500 mg twice a day. 2 Active Breztri Aerosphere 160-9-4.8 mcg/actuation HFA aerosol inhaler INHALE 2 PUFFS IN THE MORNING AND AT BEDTIME 3 Active budesonide-for moteroL (Symbicort) 160-4.5 mcg/actuation inhaler every 12 (twelve) hours. 8 Active azelastine (Astelin) 137 mcg (0.1 %) nasal spray USE 2 SPRAY(S) IN EACH NOSTRIL TWICE DAILY 3 Active aspirin 81 mg EC tablet in the morning. Acti ve amLODIPine (Norvasc) 10 mg tablet 3 Active ALPRAZolam (Xanax) 0.5 mg tablet alprazolam 0.5 mg tablet Active albuterol 90 mcg/actuation inhaler INHALE 2 PUFFS BY MOUTH EVERY 4 HOURS NEEDED FOR WHEEZING 2 Active Acetaminophen Extra Strength 500 mg tablet TAKE 2 TABLETS BY MOUTH EVERY 8 HOURS Active Social History Tobacco Use Types Packs/Day [...] Physically or Sexually Abused Not on file Comments Unknown Sex and Gender Information Value Date Recorded Sex Assigned at Not on file Legal Sex Female 9:13 PM EDT Gender Identity Not on file Sexual [...] 1952 Fall Risk Screening 2004 COVID-19 Vaccine ( season) 2025 06/25/2021 Influenza Vaccine (#1) 2025 3, 04/15/2022, 06/25/2021, Additional history exists Adult Tetanus 02/10/2033 02/10/2023, 06/17, 06/22/2018 Pneumococcal Vaccine: 50+ Years Completed 05/02/2023, 11/27/2016, 06/21/2015, Additional history [...] on patient's age to complete this topic Insurance GENERIC MEDICARE ADVANTAGE MEDICARE Member Subscriber Plan / Payer (Ef fective 2004-Present) Name:Nahoym Fried Member ID:[id number] Relation to Subscriber:Self Name:Nahmoy Fried Subscriber ID:[id number] Payer ID:[id number] Group ID:Not on file Type:Medicare Address: [facility] [address] Care Teams Curtain Cleaner Relationship Specialty Start Date End Date Douglas Will MD [address] [place] [address] PCP - General Family Medicine 07/01/24
--- OUTSIDE RECORDS SUMMARY | 2025-05-16 14:58 | XMS_ITS | Clinical Summary ---
Author Organization [facility] Address [address] [facility] [place] [address] Care Team Providers Care Professional Sports Scout Name Role Phone Douglas Will MD Primary Care Provider [phone] Allergies Active Allergy Reactions Criticality Noted Date Comments Acetaminophen-Codein e Other,GI intolerance,Nausea Only,Unknown Medium 03/31/2011 Other reaction(s): Abdominal Pain Pecos Itching,Other,Unknow n ,Rash High 03/01/2014 welts Other reaction(s): Welts Other reaction(s): Welts welts Codeine GI intolerance,Nause a Only,Other,Unknown Medium 04/08/2018 Other reaction(s): nausea, severe Acetaminophen-codeine Other reaction(s): nausea, severe Other reaction(s): Abdominal Pain Other reaction(s): nausea, severe Acetaminophen-codeine Other reaction(s): nausea, severe Acetaminophen-codeine Other reaction(s): nausea, severe Other reaction(s): Abdominal Pain Other reaction(s): nausea, severe Acetaminophen-codeine Droxidopa Shortness of breath High 02/14/2020 Gold GI intolerance Low 12/05/2016 itching Pecos Nickel welts Gold-Containing Drug Products GI intolerance,Itching,O ther,Rash,Unknown High 03/01/2014 itching Other reaction(s): Intolerance itching Other reaction(s): Welts itching Pecos Nickel welts Other reaction(s): Welts Other reaction(s): Intolerance itching Other reaction(s): Welts itching Latex Rash Low 05/31/2012 Patient states allergic to Latex Patient states allergic to Latex Levonorgestrel-Ethin yl Estrad Cough,Itching,Runny nose Medium 11/19/2015 Nickel Hives,Itching,Other, U nknown,Rash High 03/01/2014 Other reaction(s): Welts nickel Other 11/19/2015 Medications clobetasol (Temovate) 0.05 % ointmentIndications: Rash and other nonspecific skin eruption Apply to affected areas, up to twice a day when flared, do not use one the face, groin, or underarms, 30 day supply 60 g 11 05/24/20 24 Active metoprolol succinate XL (Toprol-XL) 100 MG 24 hr tabletIndications:Es sential hypertension, benign Take 1 tablet (100 mg) by mouth Daily 30 tablet 11 06/28/20 24 025 Active Roflumilast 500 MCG tabletIndications:Ch ronic obstructive pulmonary disease, unspecified COPD type (HCC) Take 1 tablet by mouth once daily 30 tablet 07/25/20 24 Active montelukast (Singulair) 10 MG tabletIndications:Ch ronic rhinosinusitis Take 1 tablet (10 mg) by mouth at bedtime 30 tablet 09/19/19 25 026 Active celecoxib (CeleBREX) 200 MG capsuleIndications:P rimary osteoarthritis of both knees Take 1 capsule (200 mg) by mouth in the morning and 1 capsule (200 mg) before bedtime. 180 capsule 3 10/10/19 25 Active furosemide (Lasix) 20 MG tabletIndications:Re stless leg syndrome Take 1 tablet (20 mg) by mouth Daily 30 tablet 11 11/24/19 25 026 Active hydrALAZINE (Apresoline) 25 MG tablet Take 25 mg by mouth in the morning and 25 mg before bedtime. 09/28/19 25 Active cloNIDine (Catapres) 0.2 MG tablet TAKE 1 TABLET BY MOUTH NEEDED FOR SYSTOLIC BLOOD PRESSURE GREATER THAN OR EQUAL TO 170 SYSTOLIC, UP TO THREE TIMES A DAY. 09/30/19 25 Active omeprazole (PriLOSEC) [address] capsuleIndications:H iatal hernia with gastroesophageal reflux Take 1 capsule (40 mg) by mouth in the morning. Take before meals. Do not crush or chew. 30 capsule 3 12/08/19 25 Active atorvastatin (Lipitor) 40 MG tabletIndications:CA D in [place] artery Take 1 tablet (40 mg) by mouth at bedtime 90 tablet 3 12/09/19 25 Active oxybutynin XL (Ditropan XL) 10 MG 24 hr tabletIndications:Ur ge incontinence of urine Take 1 tablet (10 mg) by mouth Daily Do not crush, chew, or split. 30 tablet 11 12/09/19 25 026 Active ferrous sulfate (Fe Tabs) 325 (65 Fe) MG EC tabletIndications:Ir on 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 dietary iron intake Take 1 tablet (325 mg) by mouth in the morning and 1 tablet (325 mg) at noon and 1 tablet (325 mg) in the evening. Take with meals. Do not crush, chew, or split. 90 tablet 3 12/24/19 25 Active levothyroxine (Synthroid, Levoxyl) 100 MCG tabletIndications:Ad ult hypothyroidism Take 1 tablet (100 mcg) by mouth Daily 30 tablet 5 02/15/20 25 Active clopidogrel (Plavix) 75 MG tabletIndications:Ch ronic heart failure with preserved ejection fraction (HFpEF) (HCC) Take 1 tablet (75 mg) by mouth Daily 90 tablet 02/15/20 25 Active rOPINIRole (Requip) 2 MG tabletIndications:Re stless leg syndrome Take 1 tablet (2 mg) by mouth at bedtime 90 tablet 3 02/15/20 25 Active traZODone (Desyrel) 150 MG tabletIndications:MD Crane (major depressive disorder), recurrent episode, moderate (HCC) Take 1 tablet (150 mg) by mouth at bedtime 90 tablet 3 02/21/20 25 Active fludrocortisone (Florinef) 0.1 MG tabletIndications:Or thostatic hypotension Take 2 tablets (0.2 mg) by mouth Daily 180 tablet 3 02/21/20 25 Active midodrine (Proamatine) 5 MG tablet Take 5 mg by mouth in the morning and 5 mg in the evening. Take with meals. 03/24/20 25 Active losartan (Cozaar) 25 MG tablet Take 25 mg by mouth Daily 03/24/20 25 Active carbidopa-levodopa (Sinemet) 25-100 MG tablet 1 tablet as needed Orally Two times a Week Active albuterol HFA 90 mcg/act inhalerIndications:C hronic obstructive pulmonary disease, unspecified COPD type (HCC) Inhale 2 puffs every 4 (four) hours if needed for shortness of breath or wheezing 18 g 5 05/03/20 25 Active Fluticasone-Umeclidi n-Vilant (Trelegy Ellipta) 100-62.5-25 MCG/ACT aerosol powderIndications:CO PD, mild (HCC) Inhale 1 puff Daily 60 each 5 05/03/20 25 Active albuterol HFA 90 mcg/act inhalerIndications:C hronic obstructive pulmonary disease, unspecified COPD type (HCC) Inhale 2 puffs every 4 (four) hours if needed for shortness of breath or wheezing 18 g 2 01/05/20 25 025 Discontin ued(Reord er) Trelegy Ellipta 100-62.5-25 MCG/ACT aerosol powderIndications:CO PD, mild (HCC) INHALE 1 PUFF ONCE DAILY 60 each 03/03/20 25 025 Discontin ued(Reord er) Active Problems Problem Noted Date Diagnosed Date Acute on chronic anemia 03/24/2025 Acute renal failure 03/21/2025 Hypercoagulable state due to paroxysmal atrial f ibrillation 03/21/2025 CKD stage 3a, GFR 45-59 ml/min 01/12/2025 Assessment & Plan (01/12/2025 2:45 PM EDT): Repeat labs Iron deficiency anemia secon martha to inadequate dietary iron intake 12/23/2024 Assessment & Plan (04/06/2025 12:34 PM EDT): Follow with hematology Assessment & Plan (02/20/2025 2:43 PM EDT): Resume iron supplement. Follow with hematology. Assessment & Plan (12/23/2024 3:03 PM EDT): Start iron supplement. Hypoalbuminemia 12/23/2024 Assessment & Plan (12/23/2024 3:04 PM EDT): Protein low due to poor appetite. Start nutritional supplement. SOB (shortness of breath) 12/13/2024 Assessment & Plan (04/06/2025 12:33 PM EDT): Likely multifactoral and follow with specialists. Assessment & Plan (02/20/2025 2:44 PM EDT): Continued symptoms and unclear etiology. Follow with specialists. Assessment & Plan (01/12/2025 2:44 PM EDT): Continued symptoms and unclear etiology. Repeat labs. Continue iron and nutritional supplements. Assessment & Plan (12/23/2024 3:03 PM EDT): Continued symptoms and likely related to anemia and malnutrition. Start iron supplement. Repeat labs. Assessment & Plan (12/13/2024 3:01 PM EDT): Continued pain and SOB. Recommend return to ER for admission. Medicare annual wellness visit, subsequent 12/07 Assessment & Plan (12/07/2024 2:14 PM EDT): Due for labs. Discussed proper diet and regular aerobic exercise. Need aerobic exercise 5-6 days a week for 30 minutes at a time. Smaller portions and limit total calories. Tetanus every 10 years. Advised not to smoke. Open wound of left lower leg 11/30/2024 Assessment & Plan (12/07/2024 2:14 PM EDT): Wound not healing and refer to wound care. Assessment & Plan (11/30/2024 1:19 PM EDT): Recommend dressing changes daily, finish atb Pt requests to RTO tomorrow for a wound check And help with applying new bandage, order given for supplies to bring with her I do not have access to her urgent care notes as at this time our fax machine is not working Suture removal in 10 days Vertigo 06/06/2024 Urge incontinence of urine 04/27/2024 Diarrhea 04/07/2024 Assessment & Plan (04/07/2024 11:58 AM EDT): Developed diarrhea and try lomotil. Lumbar spondylosis 03/17/2024 Assessment & Plan (01/31/2025 4:44 PM EDT): Unsteady gait and new script for rolling walker with seat to patient. Assessment & Plan (04/07/2024 11:59 AM EDT): Increased pain and refer to pain management. Assessment & Plan (03/17/2024 2:01 PM EDT): Increased pain and check x-ray. Start percocet PRN. MDD (major depressive disord er), recurrent episode, moderate 01/27/2024 Assessment & Plan (02/20/2025 2:43 PM EDT): Symptoms controlled with trazodone and continue. Assessment & Plan (03/17/2024 2:02 PM EDT): Symptoms controlled with trazodone and continue. Assessment & Plan (01/27/2024 4:52 PM EDT): Increased symptoms but declined medication. Monitor. Encounter for long-term 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 medicatio n 01/21/2024 Penetrating ulcer of aorta 01/05/2024 Assessment & Plan (01/05/2024 12:22 PM EDT): No pain and follow with vascular. Severe protein-calorie malnutrition ([facility]-H[facility]) Assessment & Plan (04/06/2025 12:34 PM EDT): Continue nutritional supplement. Assessment & Plan (01/12/2025 2:43 PM EDT): Continue nutritional supplement. Assessment & Plan (04/07/2024 11:58 AM EDT): C/o diarrhea from tube feeds and not taking as much. Try lomotil and try to increase feeds. Follow with specialists. Assessment & Plan (03/17/2024 2:03 PM EDT): Tolerating tube feeds and continue. Failure to thrive in adult 12/30/2023 Assessment & Plan (01/27/2024 4:52 PM EDT): Started tube feeds and now has diarrhea. Contact surgeon and may need to adjust feeds. Assessment & Plan (01/05/2024 12:22 PM EDT): Weight down 10 pounds. Poor oral intake and need to add nutritional supplement. Increase PO intake. Adult hypothyroidism 12/16/2023 Assessment & Plan (01/12/2025 2:42 PM EDT): Repeat labs. Assessment & Plan (03/17/2024 2:00 PM EDT): No signs of low thyroid and repeat labs. Assessment & Plan (01/27/2024 4:50 PM EDT): Medication adjusted in hospital but did not fill. Start higher dose. Essential hypertension, benign 12/16/2023 Assessment & Plan (12/16/2023 2:29 PM EDT): BP controlled and monitor PRN. Primary osteoarthritis of both knees 12/16/2023 CAD in [place] artery 12/16/2023 Assessment & Plan (04/06/2025 12:33 PM EDT): Continued SOB and heart cath. Follow up with cardiology. Assessment & Plan (02/20/2025 2:42 PM EDT): Continued SOB and stress test ordered. Follow up with cardiology. Assessment & Plan (01/12/2025 2:42 PM EDT): No chest pain and follow up with cardiology. Assessment & Plan (12/16/2023 2:28 PM EDT): No chest pain and monitor. Chronic rhinosinusitis 12/16/2023 Assessment & Plan (03/17/2024 2:01 PM EDT): Symptoms stable and continue flonase. Assessment & Plan (01/27/2024 4:51 PM EDT): Worsening symptoms and start flonase. Chronic heart failure with p reserved ejection fraction (HFpEF) 12/16/2023 Assessment & Plan (04/06/2025 12:34 PM EDT): Follow with cardiology Assessment & Plan (01/12/2025 2:42 PM EDT): Follow with cardiology Assessment & Plan (03/17/2024 2:05 PM EDT): Follow with cardiology COPD (chronic obstructive pulmonary disease) 08/2023 Assessment & Plan (02/20/2025 2:42 PM EDT): Continued SOB but normal breath sounds. Follow with pulmonology and continue inhalers. Assessment & Plan (01/31/2025 4:45 PM EDT): Continued SOB but normal breath sounds. Follow with pulmonology and continue inhalers. Very difficult to ambulate due to symptoms and severe fatigue with exertion. New script for rolling walker with seat to patient. Assessment & Plan (03/17/2024 2:01 PM EDT): Mild SOB and continue inhalers. Assessment & Plan (01/05/2024 12:21 PM EDT): Normal BS and SOB not likely related to COPD. Continue inhalers. Assessment & Plan (12/16/2023 2:29 PM EDT): Breathing stable and follow with pulmonology. Cyst of left kidney 12/16/2023 Dysphasia 12/16/2023 Assessment & Plan (04/07/2024 12:19 PM EDT): Continued problems swallowing and follow with GI. Assessment & Plan (01/27/2024 4:51 PM EDT): Not able to swallow and PEG placed. Follow with GI. Assessment & Plan (01/05/2024 12:22 PM EDT): Still occasional swallowing problems and follow with specialist. Assessment & Plan (12/16/2023 2:29 PM EDT): Recurrent problems swallowing and prior esophageal dilation. Refer back to surgeon. Gastroparesis 12/16/2023 Hiatal hernia with gastroesophageal reflux 12/15 Persistent insomnia 12/16/2023 Orthostatic hypotension 12/16/2023 Assessment & Plan (02/20/2025 2:43 PM EDT): BP stable and continue medication. Assessment & Plan (12/13/2024 3:01 PM EDT): Continued pain and SOB. Recommend return to ER for admission. Assessment & Plan (03/17/2024 2:02 PM EDT): BP improved and continue florinef. Assessment & Plan (01/27/2024 4:52 PM EDT): BP improved and continue florinef. Paroxysmal atrial fibrillation 12/16/2023 Assessment & Plan (12/23/2024 3:05 PM EDT): NSR. Prediabetes 12/16/2023 Restless leg syndrome 12/16/2023 Rosacea 12/16/2023 Allergic rhinitis due to pollen 12/16/2023 Skin lesion of left arm 12/16/2023 Subcutaneous mass of left lower leg 12/16/2023 Esophageal stricture 12/16/2023 Assessment & Plan (12/16/2023 2:29 PM EDT): Recurrent problems swallowing and prior esophageal dilation. Refer back to surgeon. Aortic dissection 11/23/2023 Assessment & Plan (12/16/2023 2:28 PM EDT): Recent procedure and doing well. Follow with vascular. Recurrent falls 05/30/2019 Resolved Problems Problem Noted Date Diagnosed Date Resolved Date Lumbosacral spondylosis without myelopathy 05/03/2025 05/03/2025 Scoliosis due to degenerativ e disease of spine in adult patient 05/03/2025 05/03/2025 Presence of Watchman left at rial appendage closure device 04/26/2025 05/01/2025 Chest pain 12/13/2024 02/20/2025 Assessment & Plan (12/13/2024 3:01 PM EDT): Continued pain and SOB. Recommend return to ER for admission. Encounters Date Type Department Care Team Description 05/03/2025 8:45 AM EDT Office Visit [facility] [address] [address] Susie Quintero DO Chronic obstructive pulmonary disease, unspecified COPD type (HCC); COPD, mild (HCC) 05/03/2025 Bamboo flowsheet [facility] [address] [place] [phone] Susie Quintero DO 04/07/2025 Patient Outreach [facility] [address] [facility] [place] [address] Ke Marte MA 04/07/2025 Patient Outreach [facility] [address] [address] Ke Marte MA 04/07/2025 Telephone [facility] [address] [place] [address] Douglas Will MD 04/06/2025 11:30 AM EDT Office Visit [facility] [address] [place] [address] Douglas Will MD CAD in [place] artery (Primary Dx); Lumbar spondylosis; Iron 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 dietary iron intake; Chronic heart failure with preserved ejection fraction (HFpEF) (HCC); Severe protein-calorie malnutrition ([facility]-HCC); SOB (shortness of breath) 04/06/2025 Bamboo flowsheet [facility] [address] [place] [address] Douglas Will MD 04/03/2025 Results [facility] [address] [place] [phone] Douglas Will MD CBC auto differential, Basic metabolic panel 03/31/2025 External Result Encounter [facility] External Department Unsolicited Douglas Will MD 03/28/2025 Patient Outreach [facility] [address] [place] [phone] Patience Arana RN 03/22/2025 Clinisync Result Encounter [facility] External Department Unsolicited Provider, Generic External Data 03/21/2025 Orders Only [facility] [address] [place] [phone] Douglas Will MD 03/10/2025 Telephone [facility] [address] [place] [address] Douglas Will MD 03/08/2025 10:30 AM EDT Consult [facility] [address] [place] [address] Susie Quintero, DO Chronic obstructive pulmonary disease, unspecified COPD type (HCC); SOB (shortness of breath) 03/08/2025 Bamboo flowsheet [facility] [address] [place] [address] Susie Quintero DO 03/06/[address] [facility] [address] [place] [phone] Lurdes Toney PA 03/06/2025 Travel 03/03/2025 Refill [facility] [address] [place] [place] [address] Douglas Will MD COPD, mild (HCC) 02/21/2025 2:25 PM EDT Ancillary Procedure [facility] [address] [place] [phone] 02/21/2025 1:45 PM EDT Office Visit [facility] [address] [facility] [place] [address] Jitendra Hill PA History of right knee joint replacement (Primary Dx); Acute pain of right knee 02/21/2025 Bamboo flowsheet [facility] [address] [place] [address] Jitendra Hill PA 02/21/2025 Travel 02/20/2025 1:45 PM EDT Office Visit [facility] [address] [place] [address] Douglas Will MD SOB (shortness of breath) (Primary Dx); CAD in [place] artery ; Chronic obstructive pulmonary disease, unspecified COPD type ([facility]); Iron 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 dietary iron intake; MDD (major depressive disorder), recurrent episode, moderate ([facility]); Orthostatic hypotension 02/20/2025 Patient Outreach [facility] [place] [address] [place] [address] Ke Marte MA 02/20/2025 Bamboo flowsheet [facility] [address] [place] [address] Douglas Will MD 02/16/2025 Clinisync Result Encounter [facility] External Department Unsolicited Provider, Generic External Data 02/14/2025 [facility] [address] [place] [phone] Douglas Will MD Chronic heart failure with preserved ejection fraction (HFpEF) (HCC) 02/14/2025 Refill [facility] [address] [facility] [place] [address] Douglas Will MD Adult hypothyroidism ; Chronic heart failure with preserved ejection fraction (HFpEF) (HCC); Restless leg syndrome 02/13/2025 Clinisync Result Encounter [facility] External Department Unsolicited Provider, Generic External Data from Last 3 Months Immunizations Immunization Administration Dates Next Due Influenza Whole 05/17/2014 Influenza, High Dose Seasona l, Preservative Free 04/27/2024,05/10/2020,05/27/2019 Influenza, High-dose Seasona l, Quadrivalent, Preservative Free 05/02/2023,04/15/2022 Influenza, Unspecified 06/25/2021,2018,05/17/2018,05/08 Pneumococcal Conjugate PCV 13 11/27/2016, 015 Pneumococcal Conjugate PCV 20 05/02/2023 Pneumococcal Polysaccharide PPSV23 06/03/2011,,08/17/1998 Tdap 02/10/2023,06/30/2018,06/22/2018 Zoster, Recombinant 06/23/2023,05/02/2023 Zoster, live 05/12/2013 Social History Tobacco Use Types Packs/Day Years Used Date Smoking Tobacco: Never Smokeless Tobacco: Never Tobacco Cessation:Counseling Given: Not Answered [id number] Health Literacy Answer Date Recor ded [...] often do you attend chur ch or yazdanism services? Never 01/20/2025 Do you belong to any clubs o r organizations such as yazidi groups, unions, fraternal or athletic groups, or [...] Recorded Patient Health Questionnaire-2 Score 0 12/07/2024 [facility] - Occupational Stress Questionnaire Answer Date Recorded [...] any time in the past 12 m [facility], were you homeless or living in a care home (including now)? No 01/20/2025 Comments Unknown Sex and Gender Information Value Date Recorded Sex Assigned at Not on file Legal Sex Female 7:28 PM EDT Gender Identity Female 10/29/2022 7:28 PM EDT Sexual Orientation Not on file Last Filed Vital Signs Vital Sign Reading Time Taken Comments Blood Pressure 124/66 04/06/2025 11:48 AM EDT Pulse 90 05/03/2025 8:54 AM EDT Temperature 35.4 C (95.7 F) 04/06/2025 11:48 AM EDT Respiratory Rate 24 04/06/2025 11:48 AM EDT Oxygen Saturation 99% 05/03/2025 8:54 AM EDT Inhaled Oxygen Concentration - - Weight 41.7 kg (92 lb) 04/06/2025 11:48 AM EDT Height 162.6 cm (5' 4 ) 05/03/2025 8:54 AM EDT Body Mass Index 16.3 04/06/2025 11:48 AM EDT Plan of Treatment Upcoming Encounters Date Type Department Care Team (Late st Contact Info) Description 12/13/2025 11:00 AM EDT Office Visit [facility] [address] [place] [phone] Susie Quintero, DO [address] [place] [address] Health Maintenance Due Date Last Done Comments Influenza Vaccine (#1) 2025 4, 05/02/2023, 04/15/2022, Additional history exists Pneumococcal Vaccine: 65+ Years Completed 05/02/2023, 11/27/2016, 06/21/2015, Additional history exists Procedures Procedure Name Priority Date/Time Associated Diagnosis Comments BASIC METABOLIC PANEL Routine 03/31/2025 11:00 AM EDT CBC WITH AUTO DIFFERENTIAL Routine 03/31/2025 11:00 AM EDT [facility] CULT,URINE Routine 03/22/2025 5:05 AM EDT XR TIB/FIB LEFT 2 VIEW Routine 1:17 PM EDT XR KNEE 1-2 VIEWS RIGHT Routine 02/22/20 25 2:23 PM EDT Acute pain of right knee MHPT PROT. ELECTROPH, BL Routine 02/16/2025 4:05 PM EDT MHPT FREE KAPPA + LAMBDA Routine 02/16/2025 4:05 PM EDT MHPT IMMUNOGLOBULINS Routine 02/16/2025 4:05 PM EDT MHPT FERRITIN Routine 02/16/2025 4:05 PM EDT MHPT IRON BINDING CAP. Routine 5 4:05 PM EDT MHPT COMP METABOLIC PROF Routine 02/16/2025 4:05 PM EDT MHPT CBC WITH DIFF Routine 02/16/2025 4: 05 PM EDT ALL CBC WITH AUTO DIFF Routine 5 2:46 PM EDT from Last 3 Months Results * (ABNORMAL) CBC auto differential (03/31/2025 11:00 AM EDT) WHITE BLOOD CELL COUNT, WBC 5.3 4 - 11 x10E9/L [facility] RED BLOOD CELL COUNT, RBC 2.74(L) 3.8 - 5.2 X10E12/L [facility] HEMOGLOBIN 7.7(L) 11.7 - 15.5 g/dL [facility] HEMATOCRIT 23.0(L) 35 - 47 % [facility] MEAN CELL VOLUME, MCV 84 80 - 100 fL [facility] MEAN CELL HEMOGLOBIN, MCH 28.2 27 - 34 pg [facility] MEAN CELL HEMOGLOGIN CONCENTRATION, MCHC 33.6 32 - 36 g/dL [facility] RED CELL DISTRIBUTION WIDTH, RDW 18.2(H) 11.5 - 15 % [facility] PLATELET COUNT 267 150 - 450 X10E9/L [facility] MEAN PLATELET VOLUME, MPV 7.7 7 - 12 fL [facility] % NEUTROPHILS 81.9 % [facility] % LYMPHOCYTES 11.0 % [facility] % MONOCYTES 5.6 % [facility] % EOSINOPHILS 0.7 % [facility] % BASOPHILS 0.8 % [facility] ABSOLUTE NEUTROPHIL 4.3 1.5 - 6.6 10*3/uL [facility] ABSOLUTE LYMPHOCYTE 0.6(L) 1.0 - 3.5 10*3/uL [facility] ABSOLUTE MONOCYTE 0.3 0.0 - 0.9 10*3/uL [facility] ABSOLUTE EOSINOPHIL 0.0 0.0 - 0.4 10*3/uL [facility] ABSOLUTE BASOPHIL 0.0 0.0 - 0.2 10*3/uL [facility] DIFFERENTIAL TYPE AUTOMATED DIFFERENTIAL [facility] Comment: PERFORMED AT [address] [place] [address] 03/31/2025 11:0 0 AM EDT 03/31/2025 12:50 PM EDT us Douglas Will MD LAB BLOOD ORDERABLES Final Resul t [facility] * (ABNORMAL) Basic metabolic panel (03/31/2025 11:00 AM EDT) Sodium 136 134 - 146 mmol/L [facility] Potassium, Bld 3.7 3.5 - 5.0 mmol/L [facility] Chloride 111(H) 98 - 109 mmol/L [facility] Carbon Dioxide 21(L) 22 - 32 mmol/L [facility] Anion Gap 4(L) 5 - 15 mmol/L [facility] BUN 17 5 - 27 mg/dL [facility] Creatinine 1.02(H) 0.40 - 1.00 mg/dL [facility] Comment:METHOD TRACEABLE TO IDMS STANDARD Glucose 106(H) 65 - 99 mg/dL [facility] Calcium 8.0(L) 8.5 - 10.5 mg/dL [facility] EGFR 54(L) >=60 ml/min/1.7 3sq.m [facility] Comment: eGFR not reported due to non-numeric value for Creatinine. Reported eGFR is based on the CKD-EPI 2020 equation that does not use a race coefficient. PERFORMED AT [address] [place] [address] 03/31/2025 11:0 0 AM EDT 03/31/2025 12:50 PM EDT us Douglas Will MD LAB BLOOD ORDERABLES Final Resul t [facility] * (ABNORMAL) MHPT CULT,URINE (03/22/2025 5:05 AM EDT) [facility] MHPT CULT,URINE Specimen Description .CLEAN CATCH URINE MHPT MHPT CULT,URINE Special Requests Site: Urine MHPT [facility] CULT,URINE Culture KLEBSIELLA PNEUMONIAE >100,000 CFU/ML(A) [facility] CULT,URINE Report Status FINAL 03/24/2025 [facility]PT MHPT CULT,URINE SUSCEPTIBILITY MHPT MHPT CULT,URINE Organism KLEBSIELLA PNEUMONIAE MHPT MHPT CULT,URINE Method ALICIA MHPT MHPT CULT,URINE Ampicillin >=32 RESISTANT(R) MHPT MHPT CULT,URINE Cefazolin (Non-Urine) 2 SUSCEPTIBLE(S) MHPT MHPT CULT,URINE Cefazolin (Urine) 2 SUSCEPTIBLE(S) MHPT MHPT CULT,URINE Urine specific interpretations are for uncomplicated UTIs only. (S) MHPT MHPT CULT,URINE Ceftriaxone <=0.25 SUSCEPTIBLE(S) MHPT MHPT CULT,URINE Gentamicin <=1 SUSCEPTIBLE(S) MHPT MHPT CULT,URINE Levofloxacin <=0.12 SUSCEPTIBLE(S) MHPT MHPT CULT,URINE Nitrofurantoin 128 RESISTANT(R) MHPT MHPT CULT,URINE Piperacillin/Tazob actam <=4 SUSCEPTIBLE(S) MHPT MHPT CULT,URINE Trimethoprim/Sulfa <=20 SUSCEPTIBLE(S) MHPT 03/22/2025 5:05 AM EDT 03/22/2025 7:01 AM EDT Narrative CLINISYNC - 03/24/2025 12:25 AM EDT Original Ordering Provider: SHARDA NICKERSON Generic External Data Provider JOSEFINA koehler Result CLINISYNC MHPT * XR TIB/FIB LEFT 2 VIEW (03/21/2025 1:17 PM EDT) Anatomical Region Laterality Modality Radiographic Josefina ging Douglas Will MD IMG XR PROCEDURES Final Result * XR knee 1 or 2 views right (02/21/2025 2:23 PM EDT) Anatomical Region Laterality Modality Lower Extremities, Knee Right Radiogra phic Imaging Narrative 02/21/2025 10:19 PM EDT Imaging Result: AP and Lateral of right knee: Surgical position and alignment of prosthetic components without evidence of loosening or wear to femora, tibial or patellar components,there is extensive bony remodeling at prior weight bearing surface, but most known no ill exposure. Patella-femoral joint noted for small wispy linea lesion. The alignment appears to be anatomic. No evidence of accelerated or asymmetric wear to tibial tray or patella button. No evidence of fracture or dislocation. Impression: Unremarkable right total knee revision arthroplasty with no prior comparisiion Jitendra RECIO IMG XR PROCEDURES Edited Resu lt - Final * (ABNORMAL) MHPT PROT. ELECTROPH, BL (02/16/2025 4:05 PM EDT) [facility] PR[facility], TOTAL 6.0(L) 6.6 - 8.7 g/dL MHPT MHPT ALBUMIN, CALC. 3.5 3.2 - 5.2 g/dL MHPT MHPT ALBUMIN, % 58 56 - 66 % MHPT MHPT OZLZM-6-RFODAF INS 0.3 0.1 - 0.4 g/dL MHPT MHPT ATBBN-3-DAREQV INS,% 4 3 - 5 % MHPT MHPT KWIQI-3-VQLRTZ INS 0.6 0.5 - 0.9 g/dL MHPT MHPT WTXLA-0-CCJXLZ INS,% 10 7 - 12 % MHPT MHPT BETA-GLOBULINS 0.7 0.7 - 1.4 g/dL MHPT MHPT BETA-GLOBULINS ,% 12 8 - 13 % MHPT MHPT GAMMA-GLOBULIN S 0.9 0.5 - 1.5 g/dL MHPT MHPT GAMMA-GLOBULIN S,% 15 11 - 19 % MHPT MHPT TOTAL PROT. SUM 6.0(L) 6.3 - 8.2 g/dL MHPT MHPT TOTAL PROT. SUM,% 99 98 - 102 % MHPT MHPT PROT. ELECT-INTERP Normal electrophoretic pattern. MHPT MHPT PATHOLOGIST REVIEW: Reviewed by pathologist: Blanquita Graves M.D. MHPT 02/16/2025 4:05 PM EDT 02/16/2025 4:06 PM EDT Narrative JOSEFINA - 02/21/2025 8:38 AM EDT Original Ordering Provider: RHODA HARDEN us Generic External Data Provider CLINISYNC F inal Result CLINISYNC PT * (ABNORMAL) MHPT IRON BINDING CAP. (02/16/2025 4:05 PM EDT) MHPT IRON 23(L) 37 - 145 ug/dL MHPT MHPT TOTAL FE BINDING CAP 222(L) 250 - 450 ug/dL MHPT MHPT % FE SATURATION 10(L) 20 - 55 % MHPT MHPT UNBOUND FE BIND CAP 199 112 - 347 ug/dL MHPT 02/16/2025 4:05 PM EDT 02/16/2025 4:06 PM EDT Narrative CLINISYNC - 02/16/2025 11:04 PM EDT Original Ordering Provider: RHODA HARDEN Generic External Data Provider CLINISYNC F inal Result Performing Organization Address [facility] de Phone Number REJINC MHPT * MHPT IMMUNOGLOBULINS (02/16/2025 4:05 PM EDT) MHPT IGG 1,046 700 - 1,600 mg/dL MHPT MHPT IGA 311 70 - 400 mg/dL MHPT MHPT IGM 54 40 - 230 mg/dL MHPT 02/16/2025 4:05 PM EDT 02/16/2025 4:06 PM EDT Narrative CLINISYNC - 02/16/2025 11:04 PM EDT Original Ordering Provider: RHODA HARDEN Generic External Data Provider CLINISYNC F inal Result Performing Organization Address [facility] de Phone Number CLINISYNC MHPT * (ABNORMAL) MHPT FREE KAPPA + LAMBDA (02/16/2025 4:05 PM EDT) MHPT FREE KAPPA LT CHAINS 71.2(H) <20.7 mg/L MHPT Comment: Performed using Diazyme reagent on Sharath Mar[employer]n Pro. Results obtained with different assay methods cannot be used interchangeably. MHPT FREE LAMBDA LT CHAINS 44.1(H) 4.2 - 27.7 mg/L MHPT Comment: Performed using Diazyme reagent on [employer] Pro. Results obtained with different assay methods cannot be used interchangeably. MHPT FREE KAPPA/LAMBDA RAT 1.61 0.22 - 1.74 MHPT 02/16/2025 4:05 PM EDT 02/16/2025 4:06 PM EDT Narrative CLINISYNC - 02/16/2025 11:07 PM EDT Original Ordering Provider: RHODA HARDEN Generic External Data Provider CLINISYNC F inal Result Performing Organization Address [facility] de Phone Number JOESFINA EDWARDSPT * MHPT FERRITIN (02/16/2025 4:05 PM EDT) MHPT FERRITIN 63 ng/mL MHPT Comment:No reference range e stablished for this age/gender. 02/16/2025 4:05 PM EDT 02/16/2025 4:06 PM EDT Narrative CLINISYNC - 02/16/2025 11:04 PM EDT Original Ordering Provider: RHODA HARDEN us Generic External Data Provider CLINISYNC F inal Result JOSEFINA MHPT * (ABNORMAL) MHPT COMP METABOLIC PROF (02/16/2025 4:05 PM EDT) MHPT NA (SODIUM) 139 136 - 145 mmol/L MHPT MHPT K (POTASSIUM) 3.5(L) 3.7 - 5.3 mmol/L MHPT MHPT CHLORIDE 108(H) 98 - 107 mmol/L MHPT MHPT CO2 22 20 - 31 mmol/L MHPT MHPT ANION GAP 9 9 - 16 mmol/L MHPT MHPT GLUCOSE 99 74 - 99 mg/dL MHPT MHPT BUN (UREA N) 22 8 - 23 mg/dL MHPT MHPT CREATININE 1.1(H) 0.50 - 0.90 mg/dL MHPT MHPT EGFR 48(L) >60 mL/min/1.7 3m2 MHPT Comment: These results are not intended for use in patients <18 years of age. eGFR results are calculated without a race factor using the 2020 CKD-EPI equation. Careful clinical correlation is recommended, particularly when comparing to results calculated using previous equations. The CKD-EPI equation is less accurate in patients with extremes of muscle mass, extra-renal metabolism of creatine, excessive creatine ingestion, or following therapy that affects renal tubular secretion. MHPT BUN/CRE RATIO 20 9 - 20 MHPT MHPT CALCIUM 8.5(L) 8.6 - 10.4 mg/dL MHPT MHPT PROTEIN, TOTAL 6.4(L) 6.6 - 8.7 g/dL MHPT MHPT ALBUMIN 3.8 3.5 - 5.2 g/dL MHPT MHPT ALBUMIN/GLOB RATIO 1.5 1.0 - 2.5 MHPT MHPT BILIRUBIN, TOTAL 0.5 0.00 - 1.20 mg/dL MHPT MHPT ALKALINE PHOS 68 35 - 104 U/L MHPT MHPT ALT 12 10 - 35 U/L MHPT MHPT AST 24 10 - 35 U/L MHPT 02/16/2025 4:05 PM EDT 02/16/2025 4:06 PM EDT Narrative CLINISYNC - 02/16/2025 5:02 PM EDT Original Ordering Provider: RHODA HARDEN us Generic External Data Provider JOSEFINA Navarro inal Result CLINFOXLIANE MHPT * (ABNORMAL) MHPT CBC WITH DIFF (02/16/2025 4:05 PM EDT) MHPT WBC COUNT 6.2 3.5 - 11.3 k/uL MHPT MHPT RBC COUNT 3.39(L) 3.95 - 5.11 m/uL MHPT MHPT HEMOGLOBIN 9.5(L) 11.9 - 15.1 g/dL MHPT MHPT HEMATOCRIT 30.1(L) 36.3 - 47.1 % MHPT MHPT MCV 88.8 82.6 - 102.9 fL MHPT MHPT MCH 28.0 25.2 - 33.5 pg MHPT MHPT MCHC 31.6 28.4 - 34.8 g/dL MHPT MHPT RDW 16.5(H) 11.8 - 14.4 % MHPT MHPT PLATELET COUNT 303 138 - 453 k/uL MHPT MHPT MPV 9.8 8.1 - 13.5 fL MHPT MHPT NRBC AUTOMATED 0.0 0.0 per 100 WBC MHPT MHPT NEUTROPHIL (SEG) 73(H) 36 - 65 % MHPT MHPT LYMPHOCYTE 17(L) 24 - 43 % MHPT MHPT MONOCYTE 8 3 - 12 % MHPT MHPT EOSINOPHIL 1 1 - 4 % MHPT MHPT BASOPHIL 1 0 - 2 % MHPT MHPT IMMATURE GRANULOCYTE 0 0 % MHPT MHPT ABS.NEUTROPHIL (SEG) 4.57 1.50 - 8.10 k/uL MHPT MHPT ABS. LYMPH 1.03(L) 1.10 - 3.70 k/uL MHPT MHPT ABS. MONOCYTE 0.51 0.10 - 1.20 k/uL MHPT MHPT ABS. EOSINOPHIL 0.06 0.00 - 0.44 k/uL MHPT MHPT ABS. BASOPHIL 0.05 0.00 - 0.20 k/uL MHPT MHPT ABS.IMM.GRANULOC YTE <0.03 0.00 - 0.30 k/uL MHPT 02/16/2025 4:05 PM EDT 02/16/2025 4:06 PM EDT Narrative CLINISYNC - 02/16/2025 4:37 PM EDT Original Ordering Provider: RHODA HARDEN us Generic External Data Provider CLINISYNC F inal Result [facility] ([facility]NORMAL) ALL CBC WITH AUTO DIFF (02/13/2025 2:46 PM EDT) MHPT WBC COUNT 6.7 3.5 - 11.3 k/uL MHPT MHPT RBC COUNT 3.39(L) 3.95 - 5.11 m/uL MHPT MHPT HEMOGLOBIN 9.5(L) 11.9 - 15.1 g/dL MHPT MHPT HEMATOCRIT 30.5(L) 36.3 - 47.1 % MHPT MHPT MCV 90.0 82.6 - 102.9 fL MHPT MHPT MCH 28.0 25.2 - 33.5 pg MHPT MHPT MCHC 31.1 28.4 - 34.8 g/dL MHPT MHPT RDW 16.4(H) 11.8 - 14.4 % MHPT MHPT PLATELET COUNT 321 138 - 453 k/uL MHPT MHPT MPV 9.9 8.1 - 13.5 fL MHPT MHPT NRBC AUTOMATED 0.0 0.0 per 100 WBC MHPT 02/13/2025 2:46 PM EDT 02/13/2025 2:47 PM EDT Narrative CLINISYNC - 02/13/2025 3:51 PM EDT Original Ordering Provider: TONI MOORE us Generic External Data Provider JOSEFINA Navarro inal Result JOSEFINA MHPT from Last 3 Months Insurance MEDICARE [facility] [place] [phone] Care Teams Professional Sports Scout Relationship Specialty Start Date End Date Douglas Will MD PCP - General Family Medicine 12/16/23
--- OUTSIDE RECORDS SUMMARY | 2025-05-16 14:58 | XMS_ITS | Encounter Summary ---
Author Organization [facility] Address [facility]-[id number] [place] [address] Care Team Providers Care Warp Splitter Name Role Phone Douglas Will MD Primary Care Provider [phone] Encounter Details Date Type Department Care Team (Late st Contact Info) Description 10/12/2024 Telephone [facility] [address] [place] [address] Fadi Higgins MD [address], [facility] [address] [place] [address] Social History Tobacco Use Types Packs/Day Years Used Date Smoking Tobacco: Former Cigarettes 2 29 1 951 - 1980 Smokeless Tobacco: Never Comments:Smoked less in past Alcohol Use Standard Drinks/Week Comments No 0 (1 standard drink = 0.6 oz pur e alcohol) [facility] Utilities Answer Date Recorded In the past 12 months has [employer], gas, oil, or water [employer] threatened to shut off services in your home? No 01/15/2024 Social Connection and Isolat ion Panel [NHANES] Answer Date Recorded In a typical week, how many times do you talk on the phone with family, friends, or neighbors? More than three times a week 05/21/2023 Frequency of Social Gatherin gs with Friends and Family Not on file 05/21/2023 Attends [employer] Services Not on file 05/21 Active Member [...] Answer Date Recorded Total Score 0 12/21/2023 [facility] - [...] got money to buy more. Never True 07/21/2024 Within the past 12 months th e food we bought just didn't last and we didn't have money to get more. Never True 07/21/2024 Purpose - Life Answer Date Recorded Purpose and direction in life Unknown Comments No Sex and Gender Information Value Date Recorded Sex Assigned at Not on file Legal Sex Female 11:22 AM EDT Gender Identity Not on file Sexual Orientation Not on file documented as of this encounter Miscellaneous Notes * Telephone Encounter - Luz Elena Ledezma - 10/12/2024 9:38 AM EST Called patient to change her appointment. She states she will be in [place] in July so needed [place] appointment. Patient satisfied. documented in this encounter Plan of Treatment Upcoming Encounters Date Type Department Care Team (Late st Contact Info) Description 05/25/2025 11:40 AM EDT [facility] [place] [address] Fadi Higgins MD [address], [address] [address] 06/12/2025 1:30 PM EDT Office Visit [facility] [address] [place] [address] Emma Ledezma MD [address] [facility] [address] [place] [address] documented as of this encounter Visit Diagnoses Not on filedocumented in this encounter Additional Health Concerns Assessment Noted Time PHQ-9 Depression Total Score: 0 12/21/19 24 10:24 AM EDT documented as of this encounter Care Teams Warp Splitter Relationship Specialty Start Date End Date Douglas Will MD PCP - General Family Medicine 05/20/21 documented as of this encounter
--- OUTSIDE RECORDS SUMMARY | 2025-05-16 14:58 | XMS_ITS | Patient Health Record ---
Author Organization [facility] [place] Address [address] [place] [address] Care Team Providers Care Telephone Clerk Telegraph Office Name Role Phone Nakul Andrews MD Primary Care Provider Unavai lable Allergies Allergen (clinical drug ingredient) Drug/Non Drug Allergy documented on EMR Reaction Allergy Type Onset Date Status [place] cobalt (uncoded) rash Allergy Act patience codeine codeine (uncoded) nausea, severe Allergy Active Gold and/or gold compound (FN) gold (uncoded) rash Allergy Active Latex latex (uncoded) rash Allergy Acti ve nickel nickel (uncoded) rash Allergy Act patience Results Component Value Reference Range Notes COMPREHENSIVE METABOLIC PANE L (Not yet reviewed by provider) Interpretation: Performing Lab:[facility] ([facility]), [address], [place]. [address] PH:[phone] Notes/Report: SODIUM 141 134-146 mmol/L POTASSIUM 4.2 [...] not use a race coefficient. PERFORMED AT [address] SUITE [facility],[place] [address] The copy-to physician of this order is POLLY Llanos ; , ; The ordering physician of this order is STACEY Guido BILIRUBIN,DIRECT (Not yet re viewed by provider) Interpretation: Performing Lab:[facility] ([facility]), [address] [place] [address], SUITE [facility], [place]. [address] PH:[phone] Notes/Report: BILIRUBIN,DIRECT 0.1 0.0-0.4 mg/dL PERFORMED AT [address] [place] [address] The copy-to physician of this order is POLLY Llanos ; , ; The ordering physician of this order is STACEY Guido D DIMER (Not yet reviewed by provider) Interpretation: Performing Lab:[facility], [address] [place] [address]. [address] PH:[phone] Notes/Report: D DIMER 1419 <255 ng/mL DDU Results >=255ng/mL DDU: Results may be indicative of the presence of VTE. The use of the Wells score and further diagnostic tests should be considered. Elevated D-Dimer levels can also be associated with DIC, neoplasm, , trauma and liver disease. Elevated levels of rheumatoid factor may lead to an overestimation of the D-Dimer level. PERFORMED AT [address] [place] [address] The copy-to physician of this order is [...] 3 days, 1 tab daily x 3 days; Duration: 9 days Active Bisoprolol-hydroCHLOROthiaz sawyer Active Isosorbide Mononitrate Active Carbidopa-Levodopa A ctive Social History Tobacco Use: Social History Observation Description Date Details (start date - stop date) Former Smoker NA - NA Tobacco Use/Smoking Question Answer Notes Patient is a former smoker Problems Problem Type SNOMED Code ICD Code Onset Dates Problem Status W/U Status Risk Notes Problem Chronic obstructive pulmonary disease (66980445) Chronic obstructive pulmonary disease, unspecified (J44.9) Active confirmed Problem Lumbosacral spondylosis without myelopathy (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) Other spondylosis, lumbar 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) Active confirmed Problem Degenerative scoliosis (3445785244) Degenerative scoliosis (M41.9) Active confirmed Problem Chronic [...] End Date [place]ICARE [place] [address] [place] [place] [address] [id number] Nahomy Fried Self - patient is the insured 4 [facility] [address] [place] [address] [id number] Nahomy Fried Self - patient is the insured 8 Medical (General) History Medical History History ICD Code Heart disease I51.9 Pulmonary emphysema, unspecified emphyse ma type J43.9 Chronic obstructive pulmonary disease, u nspecified COPD type J44.9 History of breast cancer Z85.3 PE (pulmonary thromboembolism) I26.99 DVT Surgical History Surgery Date(Month/Year) pacemaker bilat mastectomy cholecystectomy partial colectomy hysterectomy rt TKA with revision 3 cardiac stents
--- OUTSIDE RECORDS SUMMARY | 2025-05-16 14:58 | XMS_ITS | Patient Health Record ---
Author Organization [facility] Address [address] [place], [place] [address] [place], [place] [id number] Care Team Providers Care Director Case Name Role Phone Douglas Will Primary Care Provider Juan Carlos Sesay [phone] Allergies Allergen (clinical drug ingredient) Drug/Non Drug [...] Problem Status W/U Status Risk Notes Problem Gastroparesis (118201852) Gastroparesis (K31.84) Active confirmed Problem Dysphagia (78546563) Dysphagia, unspecified type (R13.10) Active confirmed Encounters Encounter Location Date Provider Diagnosis [facility] [address] [place] [address] [address] [place], [place] [id number] 09/12/2024 Juan Carlos Lacie Plan Of Treatment Pending Test Test Name Order Date Upper gastrointestinal (UGI) series 01/16 Esophagram 02/12/2023 Esophageal Manometry 01/14/2023 Insurance Providers Payer Name Payer Address Payer Phone Subscriber Number Group Number Insured Name Patient Relationship to Insured Coverage Start Date Coverage End Date Medicare [place] [address] [place] [address] [id number] Nahomy Fried Self - patient is the insured [employer] [address] [place] [address] [id number] Nahomy Fried Self - patient is the [...]
--- OUTSIDE RECORDS SUMMARY | 2025-05-16 14:58 | XMS_ITS | Encounter Summary ---
Author Organization [facility] Address [facility][id number] [address] [place] [address] Care Team Providers Care Edge Bonder Name Role Phone Douglas Will MD Primary Care Provider [phone] Encounter Details Date Type Department Care Team (Late st Contact Info) Description 12/09/2024 Telephone [facility]Tra[facility] [address] [facility] [address] [place] [address] Jeremías Dykes Social History Tobacco Use Types Packs/Day Years Used Date Smoking Tobacco: Former Cigarettes 2 29 1 951 - 1980 Smokeless Tobacco: Never Comments:Smoked less in past Alcohol Use Standard Drinks/Week Comments No 0 (1 standard drink = 0.6 oz pur e alcohol) [facility] Utilities Answer Date Recorded In the [...] and Family Not on file 05/21/2023 Attends [employer]ab[employer]ist Services Not on file 05/21 Active Member [...] Answer Date Recorded Total Score 0 12/21/2023 [facility]ational Stress Questionnaire Answer Date [...] encounter Miscellaneous Notes * Telephone Encounter - Jeremías Dykes - 12/09/2024 2:41 PM EDT Patient is calling today to reschedule an appointment she cancelled with Radhika. Contact: documented in this encounter Plan of Treatment Upcoming Encounters Date Type Department Care Team (Late st Contact Info) Description 05/25/2025 11:40 AM EDT [facility] Visit [facility] [place] [address] [place] [address] Fadi Higgins MD [address], [address] [address] 06/12/2025 1:30 PM EDT Office Visit [facility] [address] [place] [address] Emma Ledezma MD [address] [facility] [address] [place], [place] [id number] documented as of this encounter Visit Diagnoses Not on filedocumented in this encounter Additional Health Concerns Assessment Noted Time PHQ-9 Depression Total Score: 0 12/21/19 24 10:24 AM EDT documented as of this encounter Care Teams Edge Bonder Relationship Specialty Start Date End Date Douglas Will MD PCP - General Family Medicine 05/20/21 documented as of this encounter
--- OUTSIDE RECORDS SUMMARY | 2025-05-16 14:58 | XMS_ITS | Encounter Summary ---
Author Organization [facility] Address [place]-[id number] [address] [place] [address] Care Team Providers Care Fringe Maker Name Role Phone Douglas Will MD Primary Care Provider [phone] Encounter Details Date Type Department Care Team (Late st Contact Info) Description 12/14/2024 Orders Only [facility] - Wound Care [address] [place] [address] Negrita Cevallos, PHARMACOGNOSY TEACHER-SENIOR INSTRUMENTATION ENGINEER [address] [place] [address] Social History Tobacco Use Types Packs/Day Years Used Date Smoking Tobacco: Former Cigarettes 2 29 1 951 - 1980 Smokeless Tobacco: Never Comments:Smoked less in past Alcohol Use Standard Drinks/Week Comments No 0 (1 standard drink = 0.6 oz pur e alcohol) [facility] Utilities Answer Date Recorded In the past 12 months has [employer] gas, oil, or water [employer] threatened to shut off services in your home? No 12/13/2024 Social Connection and Isolat ion Panel [NHANES] Answer Date Recorded In a typical week, how many times do you talk on the phone with family, friends, or neighbors? More than three times a week 05/21/2023 Frequency of Social Gatherin gs with Friends and Family Not on file 05/21/2023 Attends Sabianist Services Not on file 05/21 Active Member [...] Description 05/25/2025 11:40 AM EDT Office Visit [facility] [place] [address] [place] [address] Fadi Higgisn MD [address], [address] [address] 06/12/2025 1:30 PM EDT Office Visit [facility] [address] [facility] [place] [address] Emma Ledezma MD [address] [facility] [address] [place] [address] documented as of this encounter Visit Diagnoses Not on filedocumented in this encounter Additional Health Concerns Assessment Noted Time PHQ-9 Depression Total Score: 0 12/21/19 24 10:24 AM EDT documented as of this encounter Care Teams Fringe Maker Relationship Specialty Start Date End Date Douglas Will MD PCP - General Family Medicine 05/20/21 documented as of this encounter
--- OUTSIDE RECORDS SUMMARY | 2025-05-16 14:58 | XMS_ITS | Encounter Summary ---
Author Organization [facility] Address [id number] [address] [place] [address] Care Team Providers Care Cardiac Cath Lab Manager Name Role Phone Douglas Will MD Primary Care Provider [phone] Encounter Details Date Type Department Care Team (Late st Contact Info) Description 12/09/2024 Telephone [facility] [address] [address] Yaquelin Mariee RN Social History Tobacco Use Types Packs/Day Years Used Date Smoking Tobacco: Former Cigarettes 2 29 1 951 - 1980 Smokeless Tobacco: Never Comments:Smoked less in past Alcohol Use Standard Drinks/Week Comments No 0 (1 standard drink = 0.6 oz pur e alcohol) [facility] Utilities Answer Date Recorded In the [...] and Family Not on file 05/21/2023 Attends Amish Services Not on file 05/21 Active Member [...] Answer Date Recorded Total Score 0 12/21/2023 [facility] - [...] encounter Miscellaneous Notes * Telephone Encounter - Yaquelin Mariee RN - 12/09/2024 9:11 AM EDT Piping Designer attempt to contact Dr Will office to update on Dr Bazan request. No answer. Left message Faxed lab results to Dr Will office per Dr Bazan request ----- Message from Jessica Bazan DO sent at 12/09/2024 8:46 AM EDT ----- Can we send results to Dr. Will her PCP and see if she can be seen for pre- syncope at the PCP office? It appears that her renal function has acutely declined. Please let them know she declined ER evaluation. D dimer is elevated but this is chronic appears and same value as when her last CTA chest was obtained and negative for PE. ----- Message ----- From: Interface - Lab Results/Orders In Sent: 12/08/2024 3:20 PM EDT To: Jessica Bazan DO * Telephone Encounter - Yaquelin Mariee RN - 12/09/2024 9:11 AM EDT Received call from Lara at Dr Will office. They have talked to patient and told her to go to ER for evaluation. Lara said patient was hesitant. documented in this encounter Plan of Treatment Upcoming Encounters Date Type Department Care Team (Late st Contact Info) Description 05/25/2025 11:40 AM EDT [facility] Visit [facility] [place] [address] [place] [address] Fadi Higgins MD [address], [address] [address] 06/12/2025 1:30 PM EDT Office Visit [facility] [address] [place] [address] Emma Ledezma MD [address] [facility] [address] [place] [address] documented as of this encounter Visit Diagnoses Not on filedocumented in this encounter Additional Health Concerns Assessment Noted Time PHQ-9 Depression Total Score: 0 12/21/19 10:24 AM EDT documented as of this encounter Care Teams Cardiac Cath Lab Manager Relationship Specialty Start Date End Date Douglas Will MD PCP - General Family Medicine 05/20/21 documented as of this encounter
--- OUTSIDE RECORDS SUMMARY | 2025-05-16 14:58 | XMS_ITS | Encounter Summary ---
Author Organization [facility] Address [address] [place] [address] Phone Care Team Providers Care Slide Fastener Chain Assembler Name Role Phone Douglas Will MD Primary Care Provider + Encounter Details Date Type Department Care Team (Late st Contact Info) Description 03/07/2025 Scanned Document [facility] [address] [place] [address] Nevin Becerril RN Social History Tobacco Use Types Packs/Day Years Used Date Smoking Tobacco: Never Smokeless Tobacco: Never AUDIT-C Answer Date Recorded Q1: How often [...] any time in the past 12 m [facility], were you homeless or living in a long term (including now)? No 03/28/2024 Comments Unknown Sex and Gender Information Value Date Recorded Sex Assigned at Not on file Legal Sex Female 2:36 PM EST Gender Identity Not on file Sexual Orientation Not on file documented as of this encounter Plan of Treatment Not on file documented as of this encounter Visit Diagnoses Not on filedocumented in this encounter Care Teams Slide Fastener Chain Assembler Relationship Specialty Start Date End Date Douglas Will MD [address] [place] [address] PCP - General Family Medicine 03/03/25 documented as of this encounter
--- OUTSIDE RECORDS SUMMARY | 2025-05-16 14:58 | XMS_ITS | Encounter Summary ---
Author Organization [facility] Address [address] [place] [address] Care Team Providers Care Quick Print Operator Name Role Phone Douglas Will MD Primary Care Provider [phone] Ke Marte MA Unavailable [phone] Encounter Details Date Type Department Care Team (Late st Contact Info) Description 03/21/2025 Orders Only [facility] [address] [place] [address] Douglas Will MD [address] [place] [address] Social History Tobacco Use Types Packs/Day Years [...] often do you attend chur ch or quaker services? Never 01/20/2025 Do you belong to any clubs o r organizations such as caodaism groups, unions, fraternal or athletic groups, or [...] Recorded Patient Health Questionnaire-2 Score 0 12/07/2024 [facility] - Occupational Stress Questionnaire Answer Date [...] any time in the past 12 m [facility], were you homeless or living in a nursing home (including now)? No 01/20/2025 Comments Unknown [...] AM EDT Office Visit [facility] [address] [place] [address] Susie Quintero, DO [address] [place] [address] documented as of this encounter Procedures Procedure Name Priority Date/Time Associated Diagnosis Comments XR TIB/FIB LEFT 2 VIEW Routine 03/21/2025 1:17 PM EDT documented in this encounter Results * XR TIB/FIB LEFT 2 VIEW (03/21/2025 1:17 PM EDT) Anatomical Region Laterality Modality Radiographic Josefina ging Douglas Will MD IMG XR PROCEDURES Final Result documented in this encounter Visit Diagnoses Not on filedocumented in this encounter Additional Health Concerns Assessment Noted Time PHQ-9 Depression Total Score: 6 12/08/19 25 1:00 PM EDT documented as of this encounter Care Teams Quick Print Operator Relationship Specialty Start Date End Date Douglas Will MD PCP - General Family Medicine 12/16/23 Ke Marte MA [address] [place] [address] Family Medicine 01/20/25 04/11/25 documented as of this encounter
--- OUTSIDE RECORDS SUMMARY | 2025-05-16 14:58 | XMS_ITS | Encounter Summary ---
Author Organization [facility] Address [id number] [address] [place] [address] Care Team Providers Care Weigher Operator Name Role Phone Douglas Will MD Primary Care Provider [phone] Encounter Details Date Type Department Care Team (Late st Contact Info) Description 03/31/2025 Lab Requisition [facility] [address] [place] [address] Douglas Will MD [address] [place] [address] Acute kidney failure, unspecified Social History Tobacco Use Types Packs/Day Years Used Date Smoking Tobacco: Former Cigarettes 2 29 1 951 - 1980 Smokeless Tobacco: Never Comments:Smoked less in past Alcohol Use Standard Drinks/Week Comments No 0 (1 standard drink = 0.6 oz pur e alcohol) [facility] Utilities Answer Date Recorded In the past 12 months has [employer], gas, oil, or water [employer] threatened to shut off services in your home? No 12/13/2024 Social Connection and Isolat ion Panel [NHANES] Answer Date Recorded In a typical week, how many times do you talk on the phone with family, friends, or neighbors? More than three times a week 05/21/2023 Frequency of Social Gatherin gs with Friends and Family Not on file 05/21/2023 Attends Christianity Services Not on file 05/21 Active Member [...] Answer Date Recorded Total Score 0 12/21/2023 [facility] Occupat ional Health - Occupational Stress [...] Description 05/25/2025 11:40 AM EDT Office Visit [facility] [place] [address] [place] [address] Fadi Higgins MD [address], [address] [address] 06/12/2025 1:30 PM EDT Office Visit [facility] [address] [place] [address] Emma Ledezma MD [address] [facility] [address] [place], [place] [id number] documented as of this encounter Procedures Procedure Name Priority Date/Time Associated Diagnosis Comments CBC WITH AUTO DIFFERENTIAL Routine 03/31/2025 11:00 AM EDT Acute kidney failure, unspecified BASIC METABOLIC PANEL Routine 03/31/2025 11:00 AM EDT Acute kidney failure, unspecified documented in this encounter Results * (ABNORMAL) CBC auto differential (03/31/2025 11:00 AM EDT) WBC 5.3 4 - 11 x10E9/L 03/31/2025 1:18 PM EDT [facility] RBC Count 2.74(L) 3.8 - 5.2 X10E12/L 03/31/2025 1:18 PM EDT [facility] Hemoglobin 7.7(L) 11.7 - 15.5 g/dL 03/31/2025 1:18 PM EDT [facility] Hematocrit 23.0(L) 35 - 47 % 03/31/2025 1:18 PM EDT [facility] MCV 84 80 - 100 fL 03/31/2025 1:18 PM EDT [facility] MCH 28.2 27 - 34 pg 03/31/2025 1:18 PM EDT [facility] MCHC 33.6 32 - 36 g/dL 03/31/2025 1:18 PM EDT [facility] RDW 18.2(H) 11.5 - 15 % 03/31/2025 1:18 PM EDT [facility] Platelet Count 267 150 - 450 X10E9/L 03/31/2025 1:18 PM EDT [facility] MPV 7.7 7 - 12 fL 03/31/2025 1:18 PM EDT [facility] Neutrophils % 81.9 % 03/31/2025 1:18 PM EDT [facility] Lymphocytes % 11.0 % 03/31/2025 1:18 PM EDT [facility] Monocytes % 5.6 % 03/31/2025 1:18 PM EDT [facility] Eosinophils % 0.7 % 03/31/2025 1:18 PM EDT [facility] Basophils % 0.8 % 03/31/2025 1:18 PM EDT [facility] Neutrophils Absolute (A) 4.3 1.5 - 6.6 10*3/uL 03/31/2025 1:18 PM EDT [facility] Lymphocytes Absolute 0.6(L) 1.0 - 3.5 10*3/uL 03/31/2025 1:18 PM EDT [facility] Monocytes Absolute 0.3 0.0 - 0.9 10*3/uL 03/31/2025 1:18 PM EDT [facility] Eosinophils Absolute 0.0 0.0 - 0.4 10*3/uL 03/31/2025 1:18 PM EDT [facility] Basophils Absolute 0.0 0.0 - 0.2 10*3/uL 03/31/2025 1:18 PM EDT [facility] Differential Type AUTOMATED DIFFERENTIAL 03/31/2025 1:18 PM EDT [facility] Blood Venous blood / Unknown 03/31/2025 11:00 AM EDT 03/31/2025 12:50 PM EDT Douglas Will MD LAB BLOOD ORDERABLES Final Resul t [facility] [address] [facility] [place] [address], * (ABNORMAL) Basic Metabolic Panel (03/31/2025 11:00 AM EDT) SODIUM 136 134 - 146 mmol/L 03/31/2025 1:33 PM EDT [facility] POTASSIUM 3.7 3.5 - 5.0 mmol/L 03/31/2025 1:33 PM EDT [facility] CHLORIDE 111(H) 98 - 109 mmol/L 03/31/2025 1:33 PM EDT [facility] CARBON DIOXIDE 21(L) 22 - 32 mmol/L 03/31/2025 1:33 PM EDT [facility] ANION GAP 4(L) 5 - 15 mmol/L 03/31/2025 1:33 PM EDT [facility] BLOOD UREA NITROGEN 17 5 - 27 mg/dL 03/31/2025 1:33 PM EDT [facility] CREATININE 1.02(H) 0.40 - 1.00 mg/dL 03/31/2025 1:33 PM EDT [facility] Comment:METHOD TRACEABLE TO IDMS STANDARD GLUCOSE 106(H) 65 - 99 mg/dL 03/31/2025 1:33 PM EDT [facility] CALCIUM 8.0(L) 8.5 - 10.5 mg/dL 03/31/2025 1:33 PM EDT [facility] EGFR Non-Race Dependent 54(L) >=60 ml/min/1.7 3sq.m 03/31/2025 1:33 PM EDT [facility] Comment: eGFR not reported due to non-numeric value for Creatinine. Reported eGFR is based on the CKD-EPI 2020 equation that does not use a race coefficient. Blood Venous blood / Unknown 03/31/2025 11:00 AM EDT 03/31/2025 12:50 PM EDT Douglas Will MD LAB BLOOD ORDERABLES Final Resul t [facility] [address] [facility] [place] [address], documented in this encounter Visit Diagnoses Diagnosis Acute kidney failure, unspecified documented in this encounter Additional Health Concerns Assessment Noted Time PHQ-9 Depression Total Score: 0 12/21/19 24 10:24 AM EDT documented as of this encounter Care Teams Weigher Operator Relationship Specialty Start Date End Date Douglas Will MD PCP - General Family Medicine 05/20/21 documented as of this encounter
--- OUTSIDE RECORDS SUMMARY | 2025-05-16 14:58 | XMS_ITS | Encounter Summary ---
Author Organization [facility] Address [address] [place] [address] Care Team Providers Care Chrome Tanning Drum Operator Name Role Phone Douglas Will MD Primary Care Provider [phone] Encounter Details Date Type Department Care Team (Late st Contact Info) Description 05/03/2025 Bamboo flowsheet [facility] [address] [place] [address] Susie Quintero, DO [address] [place] [address] Social History Tobacco Use Types Packs/Day Years [...] often do you attend chur ch or synagogue services? Never 01/20/2025 Do you belong to any clubs o r organizations such as faith groups, unions, fraternal or athletic groups, or [...] Recorded Patient Health Questionnaire-2 Score 0 12/07/2024 [facility] - Occupational Stress Questionnaire Answer Date [...] any time in the past 12 m [facility], were you homeless or living in a [place] health care facility (including now)? No 01/20/2025 Comments Unknown Sex [...] AM EDT Office Visit [facility] [address] [place] [address] Susie Quintero, DO [address] [place] [address] documented as of this encounter Visit Diagnoses Not on filedocumented in this encounter Additional Health Concerns Assessment Noted Time PHQ-9 Depression Total Score: 6 12/08/19 25 1:00 PM EDT documented as of this encounter Care Teams Chrome Tanning Drum Operator Relationship Specialty Start Date End Date Douglas Will MD PCP - General Family Medicine 12/16/23 documented as of this encounter
--- OUTSIDE RECORDS SUMMARY | 2025-05-16 14:59 | XMS_ITS | Encounter Summary ---
Author Organization [facility] Address [id number] [address] [place] [address] Care Team Providers Care Innovation Manager Name Role Phone Douglas Will MD Primary Care Provider Encounter Details Date Type Department Care Team (Late st Contact Info) Description 08/01/2024 Orders Only [facility]Trauma [facility] Adult Reconstruction [address] [place] [address] Gayle Bullock LPN Age-related osteoporosis without current pathological fracture (Primary Dx) Social History Tobacco Use Types Packs/Day Years Used Date Smoking Tobacco: Former Cigarettes 2 29 1 951 - 1980 Smokeless Tobacco: Never Comments:Smoked less in past Alcohol Use Standard Drinks/Week Comments No 0 (1 standard drink = 0.6 oz pur e alcohol) [facility] Utilities Answer Date Recorded In the past 12 months has [facility] electric, gas, oil, or water company threatened [...] and Family Not on file 05/21/2023 Attends Judaism Services Not on file 05/21 Active Member [...] Answer Date Recorded Total Score 0 12/21/2023 [facility] - Occupational Stress Questionnaire Answer [...] AM EDT Office Visit [facility] [place] [address] [place] [address] Fadi Higgins MD [address], [address] [address] 06/12/2025 1:30 PM EDT Office Visit [facility] [address] [place] [address] Emma Ledezma MD [address] [facility] [address] [place], [place] [id number] Scheduled Orders Name Type Priority Associated Diagnoses Orde r Schedule Calcium Lab Routine Age-related osteoporosis without current pathological fracture 28 days for 12 Occurrences starting 08/01/2024 until 08/01/2025 documented as of this encounter Visit Diagnoses Diagnosis Age-related osteoporosis without current pathological fracture- Primary documented in this encounter Additional Health Concerns Assessment Noted Time PHQ-9 Depression Total Score: 0 12/21/19 24 10:24 AM EDT documented as of this encounter Care Teams Innovation Manager Relationship Specialty Start Date End Date Douglas Will MD PCP - General Family Medicine 05/20/21 documented as of this encounter
--- OUTSIDE RECORDS SUMMARY | 2025-05-16 14:59 | XMS_ITS | Encounter Summary ---
Author Organization [facility] Address [address] [place] [address] Care Team Providers Care Cardiopulmonary Technician And Eeg Tech Name Role Phone Douglas Will MD Primary Care Provider [phone] Ke Marte MA Unavailable Encounter Details Date Type Department Care Team (Late st Contact Info) Description 01/24/2025 Results Follow-Up [facility] [address] [place] [address] Douglas Will MD [address] [place] [address] RT PULMONARY FUNCTION TEST Social History Tobacco Use Types Packs/Day Years [...] often do you attend chur ch or restorationism services? Never 01/20/2025 Do you belong to any clubs o r organizations such as methodist groups, unions, fraternal or athletic groups, or [...] [facility] of Occupat ional Health - [...] any time in the past 12 m [facility], were you homeless or living in a assisted (including now)? No 01/20/2025 Comments Unknown Sex [...] EDT Office Visit [facility] [address] [place] [address] Susie Quintero, DO [address] [place] [address] documented as of this encounter Visit Diagnoses Not on filedocumented in this encounter Additional Health Concerns Assessment Noted Time PHQ-9 Depression Total Score: 6 12/08/19 25 1:00 PM EDT documented as of this encounter Care Teams Cardiopulmonary Technician And Eeg Tech Relationship Specialty Start Date End Date Douglas Will MD PCP - General Family Medicine 12/16/23 Ke Marte, BEBE [address] [place] [address] Family Medicine 01/20/25 04/11/25 documented as of this encounter
--- OUTSIDE RECORDS SUMMARY | 2025-05-16 14:59 | XMS_ITS | Encounter Summary ---
Author Organization [facility] Address [address] [facility] [place] [address] Care Team Providers Care Rotor Assembler Name Role Phone Douglas Will MD Primary Care Provider [phone] Ke Marte MA Unavailable [phone] Encounter Details Date Type Department Care Team (Late st Contact Info) Description 01/13/2025 Results Follow-Up [facility] [address] [place] [address] Douglas Will MD [address] [place] [address] Basic metabolic panel, CBC and differential, Iron and TIBC, Additional followed-up results: 4 Social History Tobacco Use Types Packs/Day Years Used Date Smoking Tobacco: Never Smokeless Tobacco: Never PHQ-2 Answer Date Recorded Patient Health Questionnaire-2 Score 0 12/07/2024 Comments Unknown Sex and Gender Information Value Date Recorded Sex Assigned at Not on file Legal Sex Female 7:28 PM EDT Gender Identity Female 10/29/2022 7:28 PM EDT Sexual Orientation Not on file documented as of this encounter Plan of Treatment Upcoming Encounters Date Type Department Care Team (Late st Contact Info) Description 12/13/2025 11:00 AM EDT Office Visit [facility] [address] [place] [address] Susie Quintero, DO [address] [place] [address] documented as of this encounter Visit Diagnoses Not on filedocumented in this encounter Additional Health Concerns Assessment Noted Time PHQ-9 Depression Total Score: 6 12/08/19 25 1:00 PM EDT documented as of this encounter Care Teams Rotor Assembler Relationship Specialty Start Date End Date Douglas Will MD PCP - General Family Medicine 12/16/23 Ke Marte MA [address] [place] [address] Family Medicine 01/20/25 04/11/25 documented as of this encounter
--- OUTSIDE RECORDS SUMMARY | 2025-05-16 14:59 | XMS_ITS | Encounter Summary ---
Author Organization [facility] Address [id number] [address] [place] [address] Care Team Providers Care Flying Squad Salesperson Name Role Phone Douglas Will MD Primary Care Provider [phone] Encounter Details Date Type Department Care Team (Late st Contact Info) Description 09/28/2024 Orders Only [facility]Trauma [facility] Adult Reconstruction [address] [facility] [address] [place] [address] Radhika Harper, FUEL BUYER-CREMATORIUM OPERATOR [address] [facility] [address] [place] [address] Social History Tobacco Use Types Packs/Day Years Used Date Smoking Tobacco: Former Cigarettes 2 29 1 951 - 1980 Smokeless Tobacco: Never Comments:Smoked less in past Alcohol Use Standard Drinks/Week Comments No 0 (1 standard drink = 0.6 oz pur e alcohol) [facility] Utilities Answer Date Recorded In the past 12 months has [employer], gas, oil, or water [employer] threatened to shut off services in your home? No 01/15/2024 Social Connection and Isolat ion Panel [NHANES] Answer Date Recorded In a typical week, how many times do you talk on the phone with family, friends, or neighbors? More than three times a week 05/21/2023 Frequency of Social Gatherin gs with Friends and Family Not on file 05/21/2023 Attends Taoism Services Not on file 05/21 Active Member [...] Answer Date Recorded Total Score 0 12/21/2023 [facility] Occupat ional Health - [...] EDT Office Visit [facility] [place] [address] [place] [address] Fadi Higgins MD [address], [address] [address] 06/12/2025 1:30 PM EDT Office Visit [facility] [address] [place] [address] Emma Ledezma MD [address] [facility] [address] [place], [place] [id number] documented as of this encounter Procedures Procedure Name Priority Date/Time Associated Diagnosis Comments VITAMIN D 25 HYDROXY Routine 09/28/2024 2:41 PM EST documented in this encounter Results * Vitamin D 25 hydroxy (09/28/2024 2:41 PM EST) Radhika Harper FUEL BUYER-CREMATORIUM OPERATOR LAB BLOOD ORDERABLES Fi nal Result MANUALLY TRANSCRIBED RESULTS documented in this encounter Visit Diagnoses Not on filedocumented in this encounter Additional Health Concerns Assessment Noted Time PHQ-9 Depression Total Score: 0 12/21/19 24 10:24 AM EDT documented as of this encounter Care Teams Flying Squad Salesperson Relationship Specialty Start Date End Date Douglas Will MD PCP - General Family Medicine 05/20/21 documented as of this encounter
--- OUTSIDE RECORDS SUMMARY | 2025-05-16 14:59 | XMS_ITS | Encounter Summary ---
Author Organization [facility] tem Address [id number] [address] [place] [address] Care Team Providers Care Dip Tanker Name Role Phone Douglas Will MD Primary Care Provider [phone] Encounter Details Date Type Department Care Team (Late st Contact Info) Description 06/30/2023 Telephone [facility] [address] [facility] [address] [place] [address] Eloisa Hernadez CMA Social History Tobacco Use Types Packs/Day Years Used Date Smoking Tobacco: Former Cigarettes 2 29 1 951 - 1980 Smokeless Tobacco: Never Comments:Smoked less in past Alcohol Use Standard Drinks/Week Comments No 0 (1 standard drink = 0.6 oz pur e alcohol) Social Connection and Isolat ion Panel [NHANES] Answer Date Recorded In a typical week, how many times do you talk on the phone with family, friends, or neighbors? More than three times a week 05/21/2023 Frequency of Social Gatherin gs with Friends and Family Not on file 05/21/2023 Attends Buddhist Services Not on file 05/21 Active Member of Clubs or Organizations Not on f ile 05/21/2023 Attends Club or Organization Meetings Not on naima e 05/21/2023 Marital Status Not on file 05/21/2023 AUDIT-C Answer Date Recorded Q1: How often do you have a drink containing alcohol? Never 05/20/2023 Q2: How many drinks containi ng alcohol do you have on a typical day when you are drinking? Patient does not drink Q3: How often do you have si x or more drinks on one occasion? Never 05/20/2023 PHQ-2 Answer Date Recorded Total Score 0 05/20/2023 [facility] [place] of Occupat ional Health - Occupational Stress Questionnaire Answer Date Recorded Do you feel stress - tense, restless, nervous, or anxious, or unable to sleep at night because your mind is troubled all the time - these days? Not at all 05/21/2023 Housing Instability Answer Date Recorde d Are you worried or concerned that in the next two months you may not have stable housing that you own, rent or stay in as a part of a household? No 05/21/2023 Childcare Answer Date Recorded Childcare Unknown 01/17/2019 Employment Answer Date Recorded Employment Unknown 01/17/2019 Purpose - Life Answer Date Recorded Purpose and direction in life Unknown Comments No Sex and Gender Information Value Date Recorded Sex Assigned at Not on file Legal Sex Female 11:22 AM EDT Gender Identity Not on file Sexual Orientation Not on file documented as of this encounter Miscellaneous Notes * Telephone Encounter - Eloisa Hernadez CMA - 06/30/2023 11:14 AM EST FYI: EGD w Dil Update per patient 06/29/[address] Guerrier Patient called, and she states she was transferred to our office. Please see patient's concerns - Food is still getting stuck in her throat, and she had to throw it up. - Acid Tank Liner informed patient she would need to speak with the Provider who performed her EGD w Dil. - Acid Tank Liner went next door to speak with them, and patient was already on the phone with Dr Guerrier office. Thank You documented in this encounter Plan of Treatment Upcoming Encounters Date Type Department Care Team (Late st Contact Info) Description 05/25/2025 11:40 AM EDT [facility] [place] [address] [place] [address] Fadi Higgins MD [address], [address] [address] 06/12/2025 1:30 PM EDT [facility] Visit [facility] [address] [place] [address] Emma Ledezma MD [address] [facility] [address] [place] [address] documented as of this encounter Visit Diagnoses Not on filedocumented in this encounter Additional Health Concerns Assessment Noted Time PHQ-9 Depression Total Score: 0 05/20/20 23 6:26 PM EDT documented as of this encounter Care Teams Dip Tanker Relationship Specialty Start Date End Date Douglas Will MD PCP - General Family Medicine 05/20/21 documented as of this encounter
--- OUTSIDE RECORDS SUMMARY | 2025-05-16 14:59 | XMS_ITS | Clinical Summary ---
Author Organization [facility] Address [address] [place] [address] Phone Care Team Providers Care Stroke Program Coordinator Name Role Phone Douglas Will MD Primary Care Provider + Allergies Active Allergy Reactions Criticality Noted Date Comments Acetaminophen-Codeine Unknown,GI intolerance,GI Upset,Nausea Only,Other Medium 03/31/2011 Other reaction(s): Abdominal Pain Clifton Itching,Other,Unknow n,Rash High 03/01/2014 Other reaction(s): Welts welts Codeine GI intolerance,Unknown, Nausea Only,Other Medium 04/08/2018 Other reaction(s): nausea, severe Acetaminophen-codeine Other reaction(s): nausea, severe Acetaminophen-codeine Other reaction(s): nausea, severe Other reaction(s): Abdominal Pain Droxidopa Shortness of breath High 02/14/2020 Gold Au 198 Unknown,Itching,Othe r,Rash Low 07/20/2014 Other reaction(s): Welts itching Gold Keratinate Unknown,Itching,Othe r,Rash Low 12/05/2016 itching Clifton Nickel welts Other reaction(s): Welts Other reaction(s): Intolerance itching Gold Sodium Thiomalate (Bulk) Itching,Other,Rash Low 08/04/2014 Other reaction(s): Welts Latex Itching,Other,Rash High 05/31/2012 Patient states allergic to Latex Patient states allergic to Latex Other reaction(s): Welts Patient states allergic to Latex Levonorgestrel-Ethiny l Estrad Cough,Itching,Runny nose Medium 11/19/2015 Nickel Hives,Itching,Other, Rash High 03/01/2014 Other reaction(s): Welts Other Other 10/04/2018 [facility] - [id number]: Nickel, Clifton, Gold Compounding Medications acetaminophen (Tylenol) 500 mg [...] Active Problems Problem Noted Date Diagnosed Date Gastroesophageal reflux disease 02/09/2025 Status post insertion of per cutaneous endoscopic gastrostomy (PEG) tube (Multi) 02/09/2025 Actinic keratosis 04/01/2024 Complex regional pain syndrome affecting both up per arms 04/01/2024 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 Parkinson's disease (Multi) 12/31/2023 Failure to thrive in adult 12/30/2023 [...] Stable. Incontinence 12/23/2021 Paroxysmal atrial fibrillation (Multi) 0 Overview (04/01/2024): dx 2008 Last Assessment & Plan: Assessment: anticoagulated with warfarin Follows with cardiology Supine hypertension 02/23/2020 Pacemaker 02/23/2020 Overview (04/01/2024): Last Assessment & Plan: Assessment: AV Biotronik ( 2017) in [facility]W for chronotropic incompetence last check 03/25/2022 and card ( scanned into [employer]) Essential hypertension, benign 12/19/2019 Overview (04/01/2024): Last [...] failure with p reserved ejection fraction (HFpEF) (Multi) 12/18/2014 Overview (04/01/2024): Last Assessment & Plan: [...] History of cardiovascular disorder 01/18/2013 Chronic pancreatitis ([facility]) 11/22/2012 Asthma ([facility]) 06/21/2012 Pulmonary hypertension ([facility]) 02/06/2012 Overview (04/01/2024): R lower ext DVTs: First in her 20s after child , second when she had breast ca, , then 03/24 had PE - 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 so has IVC filter placed History of thromboembolism of vein 12/17/2011 Overview (04/01/2024): Last Assessment & Plan: Assessment: Hx DVT s/p Elham filter ( 2007), PE anticoagulated denies any recent episodes Hypothyroidism 11/19/2011 Overview (04/01/2024): Last Assessment & Plan: No signs of low thyroid and repeat labs. Infection of prosthetic joint 11/19/2011 Gastro-esophageal reflux disease with esophagiti s 07/08/2011 Stage 2 moderate COPD by GOLD classification ( lti) 02/10/2011 Overview (04/01/2024): Last Assessment & Plan: Mild SOB and continue inhalers. Last Assessment & Plan: Symptoms stable and continue flonase. Resolved Problems Problem Noted Date Diagnosed Date Resolved Date Acute maxillary sinusitis, unspecified 04/01/2024 04/01/2024 Acute respiratory failure ([facility]) 04/01/2024 04/01/2024 Pleurodynia 04/01/2024 04/01/2024 Cellulitis of skin 04/01/2024 Allergic rhinitis 04/01/2024 04/01/2024 Increased thirst 04/01/2024 04/01/2024 Dysphagia, unspecified type 03/28/2024 04/01/2024 Inflammation of sacroiliac joint 03/17/2024 04/01/2024 Acute renal failure superimp osed on chronic kidney disease 01/14/2024 04/01/2024 Allergic rhinitis due to pollen 12/16/2023 04/01/2024 Hypertensive emergency 11/23/202304/01 Atypical chest pain 11/23/2023 04/01/20 Hypertensive emergency 11/23/202304/01 Laceration without foreign b олег, left lower leg, initial encounter 04/20/2023 04/01/2024 Infection of prosthetic right knee joint 03/07/2023 04/01/2024 Breast cancer (Multi) 02/04/20232023 Overview (04/01/2024): s/p b/l massectomies Last Assessment & Plan: Assessment: right breast cancer s/p bilateral mastectomy ( 1989,1991) and chemotherapy Centrilobular emphysema (Multi) 02/04/2023 04/01/2024 Pneumonia 02/04/2023 04/01/2024 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[facility]) 04/29/2022 04/01/2024 Overview (04/01/2024): Last Assessment & [...] 024 Cellulitis 12/14/2013 04/01/2024 Diverticulitis of colon 07/08/201103/17 Encounters Date Type Department Care Team Description 03/09/2025 12:34 PM EDT Anesthesia [place] [address] [facility] [place] [address] Tavo Valadez MD 03/09/2025 Telephone [facility] [address] [place] [address] [phone] Nevin Becerril, OMAR 03/07/2025 Telephone [facility] [address] [phone] Nevin Becerril, RN EGD 03/07/2025 Scanned Document [facility] [address] [phone] Nevin Becerril, OMAR 03/07/2025 Telephone [facility] [address] [phone] Nevin Becerril, OMAR 02/16/2025 Telephone [facility] [address] [phone] Tatiana Mccarthy MA 02/14/2025 Telephone [facility] [address] [phone] Patience Wilkerson LPN GS: EGD Information (Calling regarding Scheduled 03/10/[address] Julio requested EGD info and [facility] Address be mailed to her (no MyChart), she verbalized thought was being done in [place] (at [place]). Admin Assist notified to please send info.) from Last 3 Months Social History Tobacco Use Types Packs/Day Years [...] any time in the past 12 m [facility], were you homeless or living in a halfway (including now)? No 03/28/2024 Comments Unknown Sex [...] 1940 Medicare Annual Wellness Visit (AWV) 1940 RSV High Risk: (Elderly (60+) or Population) (1 - 1-dose 75+ series) 2014 Diabetes: Hemoglobin A1C 06/10/2022 06/10/2021 Echocardiogram 12/31/2024 01/01/2024, 11/25/2023 TSH Level 03/17/2025 03/17/2024 Creatinine Level 04/01/2025 04/01/2024, , 03/30/2024, Additional history exists Diabetes Screening 04/01/2025 04/01/2024, 0 03/31/2024, 03/30/2024, Additional history exists Potassium Level 04/01/2025 04/01/2024, 03/17, 03/30/2024, Additional history exists Bone Density Scan 04/03/2025 04/03/2023, 04/03/2023 COVID-19 Vaccine ( season) 2025 07/18/2023, 04/15/2022, 06/25/2021 Influenza Vaccine (#1) 2025 , 05/02/2023, 04/15/2022, Additional history exists DTaP/Tdap/Td Vaccines (4 - Td or Tdap) 02/10/2033 02/10/2023, 06/30/2018, 06/22/2018 Pneumococcal Vaccine Completed 05/02/2023, 11/27/2016, 06/21/2015, Additional history exists Zoster Vaccines Completed 06/23/2023, 04/17, 05/12/2013 Irritable Bowel Syndrome Discontinued 03/31/2024, 04/17 HIB Vaccines Aged Out No longer eligi [...] this topic Medical Devices Implanted Type Area Needle Loom Operator Device Identifier Shelf Expiration Date Model / Serial / Lot Yaneth Donovan [id number] Implanted:Qty: 1 on 07/05/2020 by Garland Vincent MD Implant [employer] 01/16/2021 CFX-10 [id number] Description:Converted from [facility] Care Acute. Please see archived information for full log information. Joint Knee Joint Knee Right: Knee Procedures Procedure Name Priority Date/Time Associated Diagnosis Comments RENAL FUNCTION PANEL Pending Discharge 04/01/2024 7:16 AM EDT EGD Routine 03/31/2024 8:54 AM EDT Gastroesophageal reflux disease, unspecified whether esophagitis present from Last 3 Months or Most Recently Relevant to Health Maintenance Results * (ABNORMAL) Renal Function Panel (04/01/2024 7:16 AM EDT) Glucose 93 74 - 99 mg/dL LAB CHEMISTRY METHOD 04/01/2024 7:50 AM REPLACED BY [facility] Sodium 138 136 - 145 mmol/L LAB CHEMISTRY METHOD 04/01/2024 7:50 AM REPLACED BY [facility] Potassium 3.9 3.5 - 5.3 mmol/L LAB CHEMISTRY METHOD 04/01/2024 7:50 AM REPLACED BY [facility] Chloride 106 98 - 107 mmol/L LAB CHEMISTRY METHOD 04/01/2024 7:50 AM REPLACED BY [facility] Bicarbonate 26 21 - 32 mmol/L LAB CHEMISTRY METHOD 04/01/2024 7:50 AM REPLACED BY [facility] Anion Gap 10 10 - 20 mmol/L LAB CHEMISTRY METHOD 04/01/2024 7:50 AM REPLACED BY [facility] Urea Nitrogen 34(H) 6 - 23 mg/dL LAB CHEMISTRY METHOD 04/01/2024 7:50 AM REPLACED BY [facility] Creatinine 0.91 0.50 - 1.05 mg/dL LAB CHEMISTRY METHOD 04/01/2024 7:50 AM REPLACED BY [facility] eGFR 62 >60 mL/min/1. 73m*2 LAB CHEMISTRY METHOD 04/01/2024 7:50 AM EDT [facility] Comment: Calculations of estimated GFR are performed using the 2020 CKD-EPI Study Refit equation without the race variable for the IDMS-Traceable creatinine methods. https://jasn.asnjournals.org/content/early/ASN.8407448993 Calcium 7.7(L) 8.6 - 10.3 mg/dL LAB CHEMISTRY METHOD 04/01/2024 7:50 AM EDT [facility] Phosphorus 2.4(L) 2.5 - 4.9 mg/dL LAB CHEMISTRY METHOD 04/01/2024 7:50 AM EDT [facility] Comment:The performance marin acteristics of phosphorus testing in heparinized plasma have been validated by the individual laboratory site where testing is performed. Testing on heparinized plasma is not approved by the FDA; however, such approval is not necessary. Albumin 3.6 3.4 - 5.0 g/dL LAB CHEMISTRY METHOD 04/01/2024 7:50 AM EDT [facility] Blood Venous blood specimen / Unknown Venipuncture / Unknown 04/01/2024 7:16 AM EDT 04/01/2024 7:20 AM EDT us David Thorpe DO LAB BLOOD ORDERABLES Final R esult [facility] [address] [place] [address] * Esophagogastroduodenoscopy (EGD) w Dilation [...] Julio MD MPH 03/31/2024 0831 Procedure Location [place] [address] [facility] [phone] Referring Provider Rock Burciaga MD Procedure Provider Isis Julio MD MPH Rock Burciaga MD ENDOSCOPY PROCEDURE ORDERABLES Final Result from Last 3 Months or Most Recently Relevant to Health Maintenance Insurance MEDICARE PART A AND B [employer] [place] MEDICARE PART [place] [address] [place] [address] [place] [address] Advance Directives For more information, please contact: [phone] (Available ) * Full Code (Latest Code Status on File) Date Activated Date Inactivated Comments 03/28/2024 6:04 PM Question Answer Comments Plan of Care: Code Status Discussion Completed Decision Maker: Patient Care Teams Stroke Program Coordinator Relationship Specialty Start Date End Date Douglas Will MD [address] [place] [phone] PCP - General Family Medicine 03/03/25
--- OUTSIDE RECORDS SUMMARY | 2025-05-16 14:59 | XMS_ITS | Encounter Summary ---
Author Organization [facility] Address [id number] [address] [place] [address] Care Team Providers Care Camera Engineer Name Role Phone Douglas Will MD Primary Care Provider [phone] Encounter Details Date Type Department Care Team ([facility] st Contact Info) Description 12/07/2023 Telephone [facility] [address] [facility] [address] [place] [address] Emma Ledezma MD [address] [facility] [place] [address] Social History Tobacco Use Types Packs/Day Years Used Date Smoking Tobacco: Former Cigarettes 2 29 1 951 - 1980 Smokeless Tobacco: Never Comments:Smoked less in past Alcohol Use Standard Drinks/Week Comments No 0 (1 standard drink = 0.6 oz pur e alcohol) [facility] Utilities Answer Date Recorded In the past 12 months has [employer], gas, oil, or water [employer] threatened to shut off services in your home? No 11/24/2023 Social Connection and Isolat ion Panel [NHANES] Answer Date Recorded In a typical week, how many times do you talk on the phone with family, friends, or neighbors? More than three times a week 05/21/2023 Frequency of Social Gatherin gs with Friends and Family Not on file 05/21/2023 Attends Pentecostal Services Not on file 05/21 Active Member of Clubs or Organizations Not on f ile 05/21/2023 Attends Club or Organization Meetings Not on naima e 05/21/2023 Marital Status Not on file 05/21/2023 AUDIT-C Answer Date Recorded Q1: How often do you have a drink containing alcohol? Never 11/24/2023 Q2: How many drinks containi ng alcohol do you have on a typical day when you are drinking? Patient does not drink Q3: How often do you have si x or more drinks on one occasion? Never 11/24/2023 PHQ-2 Answer Date Recorded Total Score 0 11/24/2023 [facility] of Occupat ional [...] medical appointments or from getting medications? No 04/2024 In the past 12 months, has l ack of transportation kept you from meetings, work, or from getting things needed for daily living? No 11/24/2023 Housing Instability Answer Date Recorde d Are you worried or concerned that in the next two months you may not have stable housing that you own, rent or stay in as a part of a household? No 11/24/2023 Childcare Answer Date Recorded Childcare Unknown 01/17/2019 Employment Answer Date Recorded Employment Unknown 01/17/2019 Hunger Screening Answer Date Recorded Within the past 12 months we worried whether our food would run out before we got money to buy more. Never True 11/24/2023 Within the past 12 months th e food we bought just didn't last and we didn't have money to get more. Never True 11/24/2023 Purpose - Life Answer Date Recorded Purpose and direction in life Unknown Comments No Sex and Gender Information Value Date Recorded Sex Assigned at Not on file Legal Sex Female 11:22 AM EDT Gender Identity Not on file Sexual Orientation Not on file documented as of this encounter Miscellaneous Notes * Telephone Encounter - Yadira Hughes - 12/07/2023 9:34 AM EDT Est patient called office to advise that she recently came home from being in the hospital for 11 days. Patient has an appt with Dr WILDER at [facility] on 12.13 patient stated that she would like to see Dr WILDERbut that she currently feels too weak to have the CT completed. Please advise patient is she can still be seen w/o completing CT prior to appt on 12.13 * Telephone Encounter - Nyasia Byrd RN - 12/07/2023 9:34 AM EDT That is fine, CTA performed while in house. documented in this encounter Plan of Treatment Upcoming Encounters Date Type Department Care Team (Late st Contact Info) Description 05/25/2025 11:40 AM EDT [facility] [place] [address] [place] [address] Fadi Higgins MD [address], [address] [address] 06/12/2025 1:30 PM EDT Office Visit [facility] [address] [facility] [facility] [place] [place] [phone] Emma Ledezma MD [address] [facility] [address] [place] [address] documented as of this encounter Visit Diagnoses Not on filedocumented in this encounter Additional Health Concerns Assessment Noted Time PHQ-9 Depression Total Score: 0 11/24/19 24 11:17 AM EDT documented as of this encounter Care Teams Camera Engineer Relationship Specialty Start Date End Date Douglas Will MD PCP - General Family Medicine 05/20/21 documented as of this encounter
--- OUTSIDE RECORDS SUMMARY | 2025-05-16 14:59 | XMS_ITS | Encounter Summary ---
Author Organization [facility] Address [id number] [address] [place] [address] Care Team Providers Care Health Care Liaison Name Role Phone Douglas Will MD Primary Care Provider [phone] Encounter Details Date Type Department Care Team (Late st Contact Info) Description 06/10/2023 Telephone [facility]Tra[facility] [address] [place] [address] Gayle Bullock LPN Social History Tobacco Use Types Packs/Day Years [...] and Family Not on file 05/21/2023 Attends Anabaptism Services Not on file 05/21 Active Member [...] Answer Date Recorded Total Score 0 05/20/2023 [facility] [place] of Occupat ional Health - Occupational Stress [...] encounter Miscellaneous Notes * Telephone Encounter - Gayle Bullock LPN - 06/10/2023 3:24 PM EDT I spoke with the patient on the phone. I let her know that we are working on the prior authorization for [employer]. I told her that we are trying to work through an error in the spelling of her last name, and trying to get the correct information run through [employer] for benefit verification. documented in this encounter Plan of Treatment Upcoming Encounters Date Type Department Care Team (Late st Contact Info) Description 05/25/2025 11:40 AM EDT [facility] Visit [facility] [place] [address] Fadi Higgins MD [address], [address] [address] 06/12/2025 1:30 PM EDT Office Visit [facility] [address] [place] [address] Emma Ledezma MD [address] [facility] [address] [place] [address] documented as of this encounter Visit Diagnoses Not on filedocumented in this encounter Additional Health Concerns Assessment Noted Time PHQ-9 Depression Total Score: 0 05/20/20 23 6:26 PM EDT documented as of this encounter Care Teams Health Care Liaison Relationship Specialty Start Date End Date Douglas Will MD PCP - General Family Medicine 05/20/21 documented as of this encounter
--- OUTSIDE RECORDS SUMMARY | 2025-05-16 14:59 | XMS_ITS | Encounter Summary ---
Author Organization [facility] Send[employer]News Sys tem Address [id number] [address] [place] [address] Care Team Providers Care Spanish Interpreter Name Role Phone Douglas Will MD Primary Care Provider [phone] Encounter Details Date Type Department Care Team (Late st Contact Info) Description 12/24/2021 Telephone [facility] [address] [facility] [address] [place] [address] Melissa Dunn LPN Social History Tobacco Use Types Packs/Day Years Used Date Smoking Tobacco: Former Smokeless Tobacco: Never Alcohol Use Standard Drinks/Week Comments No 0 (1 standard drink = 0.6 oz pur e alcohol) Childcare Answer Date Recorded Childcare Unknown 01/17/2019 Employment Answer Date Recorded Employment Unknown 01/17/2019 Purpose - Life Answer Date Recorded Purpose and direction in life Unknown Comments No Sex and Gender Information Value Date Recorded Sex Assigned at Not on file Legal Sex Female 11:22 AM EDT Gender Identity Not on file Sexual Orientation Not on file COVID-19 Exposure Response Date Recorded In the last 10 days, have yo u been in contact with someone who was confirmed or suspected to have Coronavirus/COVID-19? No / Unsure 12/27/2021 11:35 AM EDT documented as of this encounter Miscellaneous Notes * Telephone Encounter - Melissa Dunn LPN - 12/24/2021 4:23 PM EDT Leslie (?) left a message asking for a update on a medical request that was mailed out to us on December 10 asking for medical and itemized billing. Reference # [id number] * Telephone Encounter - Melissa Dunn LPN - 12/24/2021 4:23 PM EDT Left a message for Leslie with [facility] Medical Records phone number to contact them to see if they have received her request. Left our office number if she had any other questions. documented in this encounter Plan of Treatment Upcoming Encounters Date Type Department Care Team (Late st Contact Info) Description 05/25/2025 11:40 AM EDT [facility] Visit [facility] [place] [place] [address] Fadi Higgins MD [address], [address] [address] 06/12/2025 1:30 PM EDT Office Visit [facility] Pulmonary/Sleep Medicine [address] [place] [address] Emma Ledezma MD [address] [facility] [address] [place] [address] documented as of this encounter Visit Diagnoses Not on filedocumented in this encounter Care Teams Spanish Interpreter Relationship Specialty Start Date End Date Douglas Will MD PCP - General Family Medicine 05/20/21 documented as of this encounter
--- OUTSIDE RECORDS SUMMARY | 2025-05-16 14:59 | XMS_ITS | Encounter Summary ---
Author Organization [facility] Sys tem Address [facility]-[id number] [address] [place] [address] Care Team Providers Care Coat Joiner Lockstitch Name Role Phone Douglas Will MD Primary Care Provider [phone] Encounter Details Date Type Department Care Team (Late st Contact Info) Description 06/11/2023 Telephone [facility] Orthopedics/Trauma and Adult Reconstruction [address] [place] [address] Melissa Sanderson CMA Social History Tobacco Use Types Packs/Day [...] Answer Date Recorded Total Score 0 05/20/2023 [facility] [place] of Occupat ional Health - Occupational Stress [...] Miscellaneous Notes * Telephone Encounter - Melissa Sanderson CMA - 06/11/2023 2:55 PM EDT PER AMGEN NO PA NEEDED FOR PROLIA documented in this encounter Plan of Treatment Upcoming Encounters Date Type Department Care Team (Late st Contact Info) Description 05/25/2025 11:40 AM EDT Office Visit [facility] [address] [facility] [address] Fadi Higgins MD [address] [address] 06/12/2025 1:30 PM EDT Office Visit [facility] Pulmonary/Sleep Medicine [address] [place] [address] Emma Ledezma MD [address] [facility] [address] [place] [address] documented as of this encounter Visit Diagnoses Not on filedocumented in this encounter Additional Health Concerns Assessment Noted Time PHQ-9 Depression Total Score: 0 05/20/20 23 6:26 PM EDT documented as of this encounter Care Teams Coat Joiner Lockstitch Relationship Specialty Start Date End Date Douglas Will MD PCP - General Family Medicine 05/20/21 documented as of this encounter
--- OUTSIDE RECORDS SUMMARY | 2025-05-16 14:59 | XMS_ITS | Encounter Summary ---
Author Organization [facility] Sys tem Address [id number] [address] [place] [address] Care Team Providers Care Supervisor Pipeline Name Role Phone Douglas Will MD Primary Care Provider [phone] Encounter Details Date Type Department Care Team (Late st Contact Info) Description 06/09/2023 Telephone [facility] Orthopedics/Trauma and Adult Reconstruction [address] [place] [address] Sharee Ronquillo Social History Tobacco Use Types Packs/Day Years [...] and Family Not on file 05/21/2023 Attends [employer] Services Not on file 05/21 Active Member [...] Answer Date Recorded Total Score 0 05/20/2023 [facility] of Occupat ional Health - Occupational Stress [...] encounter Miscellaneous Notes * Telephone Encounter - Sharee Ronquillo - 06/09/2023 3:06 PM EDT PT IS CALLING TO SEE IF ANYONE IS WORKING ON HER OSTEOPOROSIS PLAN SHE CAN BE REACHED AT [phone] documented in this encounter Plan of Treatment Upcoming Encounters Date Type Department Care Team (Late st Contact Info) Description 05/25/2025 11:40 AM EDT [facility] Visit [facility] [place] [address] Fadi Higgins MD [address], [address] [address] 06/12/2025 1:30 PM EDT Office Visit [facility]monary/Sleep Medicine [address] [place] [address] Emma Ledezma MD [address] [facility] [address] [place] [address] documented as of this encounter Visit Diagnoses Not on filedocumented in this encounter Additional Health Concerns Assessment Noted Time PHQ-9 Depression Total Score: 0 05/20/20 23 6:26 PM EDT documented as of this encounter Care Teams Supervisor Pipeline Relationship Specialty Start Date End Date Douglas Will MD PCP - General Family Medicine 05/20/21 documented as of this encounter
--- OUTSIDE RECORDS SUMMARY | 2025-05-16 14:59 | XMS_ITS | Encounter Summary ---
Author Organization [facility] Address [id number] [address] [place] [address] Care Team Providers Care Clerk To Justice Name Role Phone Douglas Will MD Primary Care Provider [phone] Encounter Details Date Type Department Care Team (Late st Contact Info) Description 08/31/2024 Orders Only [facility] Orthopedics/Trauma and Adult Reconstruction [address] [place] [address] Gayle Bullock LPN Social History Tobacco Use Types Packs/Day Years Used Date Smoking Tobacco: Former Cigarettes 2 29 1 951 - 1980 Smokeless Tobacco: Never Comments:Smoked less in past Alcohol Use Standard Drinks/Week Comments No 0 (1 standard drink = 0.6 oz pur e alcohol) [facility] Utilities Answer Date Recorded In the [...] Answer Date Recorded Total Score 0 12/21/2023 [facility] of Occupat ional Health - Occupational [...] AM EDT Office Visit [facility] [place] [address] [place] [address] Fadi Higgins MD [address], [address] [address] 06/12/2025 1:30 PM EDT Office Visit [facility] Pulmonary/Sleep Medicine [address] [place] [address] Emma Ledezma MD [address] [facility] [address] [place] [address] documented as of this encounter Visit Diagnoses Not on filedocumented in this encounter Additional Health Concerns Assessment Noted Time PHQ-9 Depression Total Score: 0 12/21/19 24 10:24 AM EDT documented as of this encounter Care Teams Clerk To Justice Relationship Specialty Start Date End Date Douglas Will MD PCP - General Family Medicine 05/20/21 documented as of this encounter
--- OUTSIDE RECORDS SUMMARY | 2025-05-16 14:59 | XMS_ITS | Encounter Summary ---
Author Organization [facility] Address [id number] [address] [place] [address] Care Team Providers Care Retail Client Solutions Consultant Name Role Phone Douglas Will MD Primary Care Provider [phone] Encounter Details Date Type Department Care Team (Late st Contact Info) Description 10/04/2024 Telephone [facility] Orthopedics/Trauma and Adult Reconstruction [address] [place] [address] Josette Sidhu Social History Tobacco Use Types Packs/Day Years Used Date Smoking Tobacco: Former Cigarettes 2 29 1 951 - 1980 Smokeless Tobacco: Never Comments:Smoked less in past Alcohol Use Standard Drinks/Week Comments No 0 (1 standard drink = 0.6 oz pur e alcohol) [facility] Utilities Answer Date Recorded In the past [...] and Family Not on file 05/21/2023 Attends [employer] Services Not on file 05/21 Active Member [...] Answer Date Recorded Total Score 0 12/21/2023 [facility] of Occupat ional Health - [...] encounter Miscellaneous Notes * Telephone Encounter - Josette Sidhu - 10/04/2024 2:21 PM EST [facility] called to inform us they're unable to accept the order sent as they cannot take out of state orders. Contact:[phone] * Telephone Encounter - PANFILO Major - 10/04/2024 2:21 PM EST Please see message from Josette documented in this encounter Plan of Treatment Upcoming Encounters Date Type Department Care Team ([facility] st Contact Info) Description 05/25/2025 11:40 AM EDT Office Visit [facility] [place] [address] [place] [address] Fadi Higgins MD [address], [address] [address] 06/12/2025 1:30 PM EDT Office Visit [facility] Pulmonary/Sleep Medicine [address] [place] [address] Emma Ledezma MD [address] [facility] [address] [place], [place] [address] documented as of this encounter Visit Diagnoses Not on filedocumented in this encounter Additional Health Concerns Assessment Noted Time PHQ-9 Depression Total Score: 0 12/21/19 24 10:24 AM EDT documented as of this encounter Care Teams Retail Client Solutions Consultant Relationship Specialty Start Date End Date Douglas Will MD PCP - General Family Medicine 05/20/21 documented as of this encounter
--- OUTSIDE RECORDS SUMMARY | 2025-05-16 14:59 | XMS_ITS ---
Author Organization [facility] Address [address] [place] [address] Phone Care Team Providers Care Python Engineer Name Role Phone Douglas Will MD Primary Care Provider + Active Problems Problem Noted Date Diagnosed Date [...] check 03/25/2022 and card ( scanned into [employer]) Essential hypertension, benign 12/19/2019 Overview (04/01/2024): Last [...] History of cardiovascular disorder 01/18/2013 Chronic pancreatitis ([facility]) 11/22/2012 Asthma ([facility]) 06/21/2012 Pulmonary hypertension ([facility]) 02/06/2012 Overview (04/01/2024): R lower ext DVTs: First in her 20s after child , second when she had breast ca, , then 03/24 had PE - 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 Current Treatment and Therapy Plans No current plan information found. Past Treatment and Therapy Plans No past plan information found. 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
--- OUTSIDE RECORDS SUMMARY | 2025-05-16 14:59 | XMS_ITS | Encounter Summary ---
Author Organization [facility] Sys tem Address [facility][id number] [address] [facility] [place] [address] Care Team Providers Care Liner Replacer Name Role Phone Douglas Will MD Primary Care Provider [phone] Encounter Details Date Type Department Care Team (Late st Contact Info) Description 04/09/2023 Telephone [facility]ics/Trauma and Adult Reconstruction [address] [facility] [address] [place] [address] Yoel Hollingsworth MD [address] [place], [place] [id number] Social History Tobacco Use Types Packs/Day Years [...] encounter Miscellaneous Notes * Telephone Encounter - Lina Parham - 04/09/2023 2:04 PM EDT Patient calling for results of Dexa Scan. [phone]. documented in this encounter Plan of Treatment Upcoming Encounters Date Type Department Care Team (Late st Contact Info) Description 05/25/2025 11:40 AM EDT [facility] Visit [facility] [place] [address] Fadi Higgins MD [address], [address] [address] 06/12/2025 1:30 PM EDT Office Visit [facility] Pulmonary/Sleep Medicine [address] [place] [address] Emma Ledezma MD [address] [facility] [address] [place], [place] [address] documented as of this encounter Visit Diagnoses Not on filedocumented in this encounter Care Teams Liner Replacer Relationship Specialty Start Date End Date Douglas Will MD PCP - General Family Medicine 05/20/21 documented as of this encounter
--- OUTSIDE RECORDS SUMMARY | 2025-05-16 14:59 | XMS_ITS | Encounter Summary ---
Author Organization [facility] Address [address] [place] [address] Care Team Providers Care Finishing Department Supervisor Name Role Phone Douglas Will MD Primary Care Provider [phone] Ke Marte MA Unavailable [phone] Encounter Details Date Type Department Care Team (Late st Contact Info) Description 01/25/2024 Orders Only [facility] [address] [place] [address] Douglas Will MD [address] [facility] [place] [address] Social History Tobacco Use Types Packs/Day Years Used Date Smoking Tobacco: Never Smokeless Tobacco: Never Comments Unknown Sex and Gender Information Value Date Recorded Sex Assigned at Not on file Legal Sex Female 7:28 PM EDT Gender Identity Female 10/29/2022 7:28 PM EDT Sexual Orientation Not on file documented as of this encounter Plan of Treatment Upcoming Encounters Date Type Department Care Team (Late st Contact Info) Description 12/13/2025 11:00 AM EDT Office Visit [facility] [address] [place] [address] Susie Quintero DO [address] [facility] [place] [address] documented as of this encounter Procedures Procedure Name Priority Date/Time Associated Diagnosis Comments MISCELLANEOUS LAB TEST Routine 01/23/2024 3:22 PM EDT documented in this encounter Results * - Miscellaneous Test (01/23/2024 3:22 PM EDT) Douglas Will MD LAB BLOOD ORDERABLES Final Resul t documented in this encounter Visit Diagnoses Not on filedocumented in this encounter Care Teams Finishing Department Supervisor Relationship Specialty Start Date End Date Douglas Will MD PCP - General Family Medicine 12/16/23 Ke Marte MA [address] [place] [address] Family Medicine 01/20/25 04/11/25 documented as of this encounter
--- OUTSIDE RECORDS SUMMARY | 2025-05-16 14:59 | XMS_ITS | Encounter Summary ---
Author Organization [facility] tem Address [facility]-[id number] [address] [place] [address] Care Team Providers Care Campground Caretaker Name Role Phone Douglas Will MD Primary Care Provider [phone] Encounter Details Date Type Department Care Team (Late st Contact Info) Description 09/22/2024 Telephone [facility]/Trauma and Adult Reconstruction [address] [place] [address] Lucie Kirkpatrick Social History Tobacco Use Types Packs/Day Years Used Date Smoking Tobacco: Former Cigarettes 2 29 1 951 - 1980 Smokeless Tobacco: Never Comments:Smoked less in past Alcohol Use Standard Drinks/Week Comments No 0 (1 standard drink = 0.6 oz pur e alcohol) [facility] Utilities Answer Date Recorded In the past [...] and Family Not on file 05/21/2023 Attends [employer] Not on file 05/21 Active Member [...] Answer Date Recorded Total Score 0 12/21/2023 [facility] of Occupat ional Health - Occupational [...] encounter Miscellaneous Notes * Telephone Encounter - Lucie Kirkpatrick - 09/22/2024 11:35 AM EST Patient called in and would like to know if she is to continue her injections confirmed [phone] as a good callback number * Telephone Encounter - Kristina Vazquez - 09/22/2024 11:35 AM EST Called pateint to see if she ever had her calcium re-drawn to see where her levels are to start Evenity again. Lab order was sent to [facility] on 08/31/24. Patient stated that she has not got her labs done yet. I advised that she needs to do this and thenwe can see about sending a referral for her next Evenity injection. Patient voiced understanding. documented in this encounter Plan of Treatment Upcoming Encounters Date Type Department Care Team (Late st Contact Info) Description 05/25/2025 11:40 AM EDT Office Visit [facility] [address] [place] [address] Fadi Higgins MD [address], [address] [address] 06/12/2025 1:30 PM EDT Office Visit [facility] Pul[facility]/Sleep Medicine [address] [place] [address] Emma Ledezma MD [address] [facility] [address] [place] [address] documented as of this encounter Visit Diagnoses Not on filedocumented in this encounter Additional Health Concerns Assessment Noted Time PHQ-9 Depression Total Score: 0 12/21/19 24 10:24 AM EDT documented as of this encounter Care Teams Campground Caretaker Relationship Specialty Start Date End Date Douglas Will MD PCP - General Family Medicine 05/20/21 documented as of this encounter
--- OUTSIDE RECORDS SUMMARY | 2025-05-16 14:59 | XMS_ITS | Encounter Summary ---
Author Organization [facility] Address [address] [place] [address] Care Team Providers Care Plastic Manager Name Role Phone Douglas Will MD Primary Care Provider [phone] Ke Marte MA Unavailable [phone] Encounter Details Date Type Department Care Team (Late st Contact Info) Description 12/18/2023 Orders Only [facility] [address] [place] [address] Douglas Will MD [address] [facility] [place] [address] Social History Tobacco Use Types Packs/Day Years [...] EDT Office Visit [facility] [address] [place] [address] Susie Quintero DO [address] [facility] [place] [address] documented as of this encounter Procedures Procedure Name Priority Date/Time Associated Diagnosis Comments XR CHEST 2 VIEWS Routine 12/17/2023 9:51 AM EDT documented in this encounter Results * XR chest 2 views (12/17/2023 9:51 AM EDT) Anatomical Region Laterality Modality Chest Radiographic Josefina ging Douglas Will MD IMG XR PROCEDURES Final Result documented in this encounter Visit Diagnoses Not on filedocumented in this encounter Care Teams Plastic Manager Relationship Specialty Start Date End Date Douglas Will MD PCP - General Family Medicine 12/16/23 Ke Marte MA [address] [place] [address] Family Medicine 01/20/25 04/11/25 documented as of this encounter
--- OUTSIDE RECORDS SUMMARY | 2025-05-16 14:59 | XMS_ITS | Patient Health Record ---
Author Organization [facility] Address [address] [place] [address] Care Team Providers Care Crown Assembly Machine Set Up Mechanic Name Role Phone rosita singh Primary Care Provider [phone] JARED PETERS Unavailable [phone] AMEYA BENITEZ Unavailable [phone] Allergies Allergen (clinical drug ingredient) Drug/Non Drug Allergy documented on EMR Reaction Allergy Type Onset Date Status cobalt, Gold (uncoded) rash Allergy Active Tylenol/Codeine #3 stomach upset Drug Allergy Active Latex latex rash Allergy Active nickel Nickel rash Allergy Active Reason For Referral No Information Medications Medication SIG (Take, Route, Frequency, Duration) Notes Start Date End Date Status Celecoxib 200 MG Capsule 1 capsule Orall y TWICE a day Active Famotidine 40 MG Tablet 1 tablet Orally twice a day (morning and bedtime) Active hydrALAZINE HCl 25 MG Tablet 1 tablet with food Orally every 4 hours as needed for sap over 180; Duration: 90 days Active Clopidogrel Bisulfate 75 MG Tablet 1 tablet Orally Once a day Active Levothyroxine Sodium 100 MCG Tablet 1 tablet every morning on an empty stomach Orally Once a day; Duration: 90 days Active Metoprolol Succinate 100 MG Capsule ER 24 Hour Sprinkle 1 capsule Orally Once a day Not-Taking Apixaban 5 MG Tablet 1 tablet Orally Twi ce a day; Duration: 90 days Active Montelukast Sodium 10 MG Tablet Take 1 tablet by mouth once daily for 90 days; Duration: 90 Active Aspirin 81 MG Tablet Delayed Release 1 tablet Orally Once a day Active traZODone HCl 150 MG Tablet 1 tablet at bedtime Orally Once a day; Duration: 90 days Active Fludrocortisone Acetate 0.1 MG Tablet 3 tablet Orally Once a day Active Coumadin 5 MG Tablet 1 tablet M & F, 1 tablet 5 days Orally Once a day Active Metoprolol Succinate ER 100 MG Tablet Extended Release 24 Hour 1 tablet Orally Once a day; Duration: 90 days Active Gabapentin 300 MG Capsule 2 capsules Ora lly tid; Duration: 90 days Active Pantoprazole Sodium 40 MG Tablet Delayed Release 1 tablet Orally in the morning and bed time Active Doxycycline Monohydrate 100 MG Capsule 1 capsule Orally twice a day Active Carbidopa-Levodopa 25-100 MG Tablet 1 tablet Orally AT NIGHT; Duration: 90 days Active Fluticasone Propionate 50 MCG/ACT Suspension 1 spray in each nostril Nasally Once a day; Duration: 90 days Active Social History Social History Social History Social Info Question Answer Notes Alcohol Screening: Did you have a drink containing alcohol in the past year? No Points 0 Interpretation Negative Additional Details Category Social Info Options Details Migrated Social History Migrated Social History Household:(Household):Marital status: ;Tobacco Use:(Tobacco Use/Smoking):Are you a: former smoker , How long has it been since you last smoked?: > 10 years ; Social History Alcohol: denies alcoho l use Tobacco Use never smoked Problems Problem Type SNOMED Code ICD Code Onset Dates Problem Status W/U Status Risk Notes Problem Atherosclerosis of aorta (57785215) Atherosclerosis of aorta (I70.0) Active confirmed Problem Thrombophilia (689498311) Other thrombophilia (D68.69) Active confirmed Pt taking anticoagulant due AF and Pulmonary Embolism Problem Hyperlipidemia (40212763) Other hyperlipidemia (E78.4) Active confirmed Problem Hyperlipidemia (87952172) Hyperlipidemia, unspecified (E78.5) Active confirmed Problem Restless legs syndrome (48853440) Restless legs syndrome (G25.81) Active confirmed Problem Atherosclerotic heart disease of elem coronary artery without angina pectoris (170708341805279 ) 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) Active confirmed Problem Spinal enthesopathy (61322748) Spinal enthesopathy, 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) Active confirmed Ligamentum flavum hypertrophy L3-L4 /// 08/21/2021 CT Lumbar Spine Problem Overactive bladder (159912315) Overactive bladder (N32.81) Active confirmed Problem Long-term 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 (924172327) nursing home (current) 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s (Z79.01) Active confirmed Problem History of thromboembolism of vein (839863860) Personal history of other venous thrombosis and embolism (Z86.718) Active confirmed Problem Hypothyroidism (88406237) Hypothyroidism, unspecified (E03.9) Active confirmed Problem Essential hypertension (85075428) Essential (primary) hypertension (I10) Active confirmed Problem Hypertensive heart failure (24561461) Hypertensive heart disease with heart failure (I11.0) Active confirmed Associated with HF---Continue on Clopidogrel Bisulfate 75 MG Problem Chronic obstructive pulmonary disease (09987683) Chronic obstructive pulmonary disease, unspecified (J44.9) Active confirmed 02/27/2023 Cardiology notes--Taking Daliresp Problem Sick sinus syndrome (66679910) Sick sinus syndrome (I49.5) Active confirmed 02/27/2023 Cardiology notes--S/P PPM (permanent pacemaker) implanted in 2017 Problem Insomnia (862097256) Insomnia, unspecified type (G47.00) Active confirmed Problem Pulmonary Embolism (53163068) Other pulmonary embolism without acute cor pulmonale, unspecified chronicity (I26.99) Active confirmed 02/27/2023 Cardiology note page 1/ patent stent in LAD, on Coumadin Problem Non-smoker (6301730) Non-smoker (Z78.9) Active confirmed Problem Diastolic heart failure (660873677) Diastolic congestive heart failure, unspecified HF chronicity (I50.30) Active confirmed Diastolic dysfunction-Gl obal EF 45-50%, E to A ratio reversal in ECHO 09/2021--- 11/10/2022 [facility] notes Problem Chronic atrial fibrillation (disorder) (741411987) Chronic atrial fibrillation, unspecified (I48.20) Active confirmed Pt in anti-platelets therapy --08/19/2017 Dr. Andrade notes--page 3/3 Problem Cardiac pacemaker in situ (359524447) Cardiac pacemaker in situ (Z95.0) Active confirmed Problem Parkinson's disease (disorder) (00050765) Parkinson's disease, unspecified whether dyskinesia present, unspecified whether manifestations fluctuate (G20.A1) Active confirmed Taking Carbidopa-Levo dopa Problem Heart failure (75611177) Congestive heart failure, unspecified congestive heart failure chronicity, unspecified congestive heart failure type (I50.9) Inactive confirmed Problem Parkinsonism (disorder) (46956781) Parkinsonism, unspecified Parkinsonism type (G20.C) Inactive confirmed Taking Carbidopa-Levo dopa Encounters Encounter Location Date Provider Diagnosis [facility] [address] [place] [address] 10/07/2024 AMEYA KHANTIZ Plan Of Treatment Pending Test Test Name Order Date HEMOGLOBIN A1c (496) [facility] 09/24/2023 UA Urinalysis Complete (5463) [facility] 03/2024 Lipid Panel, Standard (7600) [facility] & [facility] f-Pay 09/24/2023 CBC (includes Differential and Platelets ) (6399) [facility] 09/24/2023 TSH and FREE T4 (74674) [facility] 09/24/2023 CT: Lumbar Spine WIthout Contrast 2021 COMPREHENSIVE METABOLIC PANEL (41260) [facility] EST 09/24/2023 INR 09/11/2016 INR 07/22/2019 INR 08/02/2018 INR 08/05/2013 Prothrombin Time/INR (PT) 0137-0 020 Chest X-ray PA and lateral 07/22/2011 CBC (INCLUDES DIFF/PLT) 07/30/2017 COMPREHENSIVE METABOLIC PANEL 10/27/2017 HEMOGLOBIN A1c 10/27/2017 CBC (INCLUDES DIFF/PLT) 10/27/2017 LIPID PANEL WITH DIRECT LDL 10/27/2017 Future Test Test Name Order Date Chest X-ray PA and lateral 07/22/2017 Vitamin D, 25-Hydroxy, Total, Immunoassa y (35589) - [facility] 09/23/2021 ESR Sed Rate by Modified Westergren (809 ) [facility] 09/23/2021 CBC (H/H, RBC, Indices, WBC, Plt) (1759) [facility] 09/23/2021 TSH and FREE T4 (13857) [facility] 09/23/2021 COMPREHENSIVE METABOLIC PANEL (52047) [facility] 09/23/2021 LIPID PANEL W/REFLEX TO DIRECT LDL (1485 2) [facility] 09/23/2021 Next Appt Details Provider Name:AMEYA BENITEZ, 06/12/2025 10:45:00 AM, [address], [place], [address], Insurance Providers Payer Name Payer Address Payer Phone Subscriber Number Group Number Insured Name Patient Relationship to Insured Coverage Start Date Coverage End Date Medicare - [facility] [address] [address] [place] [address] [phone] [id number] Nahomy Fried Jacob Self - patient is the insured [address] [id number] Nahomy Fried Jacob Self - patient is the insured Medical [...] sinus b radycardia 02/2017 Right knee revision 2015 Right knee infection - residential antibio tics 05/2018 Pacemaker replaced 02/2020
--- OUTSIDE RECORDS SUMMARY | 2025-05-16 14:59 | XMS_ITS | Encounter Summary ---
Author Organization [facility] Address [address] [place] [place] [address] Care Team Providers Care Executive Team Leader Name Role Phone Douglas Will MD Primary Care Provider Ke Marte MA Unavailable [phone] Encounter Details Date Type Department Care Team (Late st Contact Info) Description 12/09/2024 Orders Only [facility] [place] [address] [place] [id number] Jessica Bazan MD [address] [address] Social History Tobacco Use Types Packs/Day Years [...] EDT Office Visit [facility] [address] [place] [address] Susie Quintero, DO [address] [place] [address] documented as of this encounter Procedures Procedure Name Priority Date/Time Associated Diagnosis Comments SCANNED LABS Routine 12/09/2024 10:07 AM EDT documented in this encounter Results * SCANNED LABS (12/09/2024 10:07 AM EDT) us Jessica Bazan MD LAB CHG PERFORMABLES Final Resu lt documented in this encounter Visit Diagnoses Not on filedocumented in this encounter Additional Health Concerns Assessment Noted Time PHQ-9 Depression Total Score: 6 12/08/19 25 1:00 PM EDT documented as of this encounter Care Teams Executive Team Leader Relationship Specialty Start Date End Date Douglas Will MD PCP - General Family Medicine 12/16/23 Ke Marte MA [address] [place] [address] Family Medicine 01/20/25 04/11/25 documented as of this encounter
--- OUTSIDE RECORDS SUMMARY | 2025-05-16 14:59 | XMS_ITS | Encounter Summary ---
Author Organization [facility] Address [id number] [address] [place] [address] Care Team Providers Care Urgent Care Physician Name Role Phone Douglas Will MD Primary Care Provider [phone] Encounter Details Date Type Department Care Team (Late st Contact Info) Description 12/23/2023 Orders Only [facility] [address] [place] [address] Joce Dee CMA Social History Tobacco Use Types Packs/Day Years Used Date Smoking Tobacco: Former Cigarettes 2 29 1 951 - 1980 Smokeless Tobacco: Never Comments:Smoked less in past Alcohol Use Standard Drinks/Week Comments No 0 (1 standard drink = 0.6 oz pur e alcohol) [facility] Utilities Answer Date Recorded In the past 12 months has e electric, gas, oil, or water company threatened to shut off services in your home? No 12/21/2023 Social Connection and Isolat ion Panel [NHANES] Answer Date Recorded In a typical week, how many times do you talk on the phone with family, friends, or neighbors? More than three times a week 05/21/2023 Frequency of Social Gatherin gs with Friends and Family Not on file 05/21/2023 Attends Voodoo Services Not on file 05/21 Active Member [...] Answer Date Recorded Total Score 0 12/21/2023 [facility] - Occupational [...] medical appointments or from getting medications? No 01/2024 In the past 12 months, has l ack of transportation kept you from meetings, work, or from getting things needed for daily living? No 12/21/2023 Housing Instability Answer Date Recorde d Are you worried or concerned that in the next two months you may not have stable housing that you own, rent or stay in as a part of a household? No 12/21/2023 Childcare Answer Date Recorded Childcare Unknown 01/17/2019 Employment Answer Date Recorded Employment Unknown 01/17/2019 Hunger Screening Answer Date Recorded Within the past 12 months we worried whether our food would run out before we got money to buy more. Never True 12/21/2023 Within the past 12 months th e food we bought just didn't last and we didn't have money to get more. Never True 12/21/2023 Purpose - Life Answer Date Recorded Purpose and direction in life Unknown Comments No Sex and Gender Information Value Date Recorded Sex Assigned at Not on file Legal Sex Female 11:22 AM EDT Gender Identity Not on file Sexual Orientation Not on file documented as of this encounter Mental Status * Question Answer Entry Date Author Overall Cognitive Status X 12/24/2023 10:00 AM EDT Alison Lilly PT documented in this encounter Plan of Treatment Upcoming Encounters Date Type Department Care Team (Late st Contact Info) Description 05/25/2025 11:40 AM EDT [facility] [place] [place] [address] Fadi Higgins MD [address], [address] [address] 06/12/2025 1:30 PM EDT Office Visit [facility] [address] [facility] [place] [address] Emma Ledezma MD [address] [facility] [address] [place] [address] documented as of this encounter Visit Diagnoses Not on filedocumented in this encounter Additional Health Concerns Assessment Noted Time PHQ-9 Depression Total Score: 0 12/21/19 24 10:24 AM EDT documented as of this encounter Care Teams Urgent Care Physician Relationship Specialty Start Date End Date Douglas Will MD PCP - General Family Medicine 05/20/21 documented as of this encounter
--- OUTSIDE RECORDS SUMMARY | 2025-05-16 14:59 | XMS_ITS | Encounter Summary ---
Author Organization [facility] Address [id number] [address] [place] [address] Care Team Providers Care Pantograph Operator Name Role Phone Douglas Will MD Primary Care Provider [phone] Encounter Details Date Type Department Care Team (Late st Contact Info) Description 03/02/2023 Telephone [facility]/Trauma [facility] Adult Re[facility] [address] [facility] [address] [place] [address] Yoel Hollingsworth MD [address] [place], [place] [id number] Social History Tobacco Use Types Packs/Day Years [...] * Telephone Encounter - Lina Parham - 03/02/2023 10:02 AM EDT Patient calling for CRP results. Also asking if she still needs to get the Dexa scan done, if so will need an order. Will go to [facility] in [place]. [phone] * Telephone Encounter - Sharlene Lyn PA-C - 03/02/2023 10:02 AM EDT CRP within normal limits. Follow up in 1 year as previously discussed or sooner with any issues. Patient has not had a DEXA scan done in the last 2 years. DEXA scan ordered and referral to [facility]. documented in this encounter Plan of Treatment Upcoming Encounters Date Type Department Care Team (Late st Contact Info) Description 05/25/2025 11:40 AM EDT [facility] Visit [facility] [place] [address] [place] [address] Fadi Higgins MD [address], [address] [address] 06/12/2025 1:30 PM EDT Office Visit [facility] [address] [place] [address] Emma Ledezma MD [address] [facility] [address] [place] [address] documented as of this encounter Visit Diagnoses Not on filedocumented in this encounter Care Teams Pantograph Operator Relationship Specialty Start Date End Date Douglas Will MD PCP - General Family Medicine 05/20/21 documented as of this encounter
--- OUTSIDE RECORDS SUMMARY | 2025-05-16 14:59 | XMS_ITS | Encounter Summary ---
Author Organization [facility] Address [id number] [address] [place] [address] Care Team Providers Care Envelope Folder Name Role Phone Douglas Will MD Primary Care Provider [phone] Encounter Details Date Type Department Care Team (Late st Contact Info) Description 02/11/2023 Telephone [facility] [address] [place] [address] Harriet Morales RMA Social History Tobacco Use Types Packs/Day Years [...] encounter Miscellaneous Notes * Telephone Encounter - DELMIS Lott - 02/11/2023 9:20 AM EDT I called Nahomy and left a message to call the office. We need to move her surgery to the following week 03/03/2023. documented in this encounter Plan of Treatment Upcoming Encounters Date Type Department Care Team (Late st Contact Info) Description 05/25/2025 11:40 AM EDT [facility] [place] [place] [address] Fadi Higgins MD [address], [address] [address] 06/12/2025 1:30 PM EDT Office Visit [facility] [address] [place] [address] Emma Ledezma MD [address] [facility] [address] [place], [place] [id number] documented as of this encounter Visit Diagnoses Not on filedocumented in this encounter Care Teams Envelope Folder Relationship Specialty Start Date End Date Douglas Will MD PCP - General Family Medicine 05/20/21 documented as of this encounter
--- OUTSIDE RECORDS SUMMARY | 2025-05-16 14:59 | XMS_ITS | Encounter Summary ---
Author Organization [facility] Address [id number] [address] [place] [address] Care Team Providers Care Hospital Admitting Clerk Name Role Phone Douglas Will MD Primary Care Provider [phone] Encounter Details Date Type Department Care Team (Late st Contact Info) Description 03/20/2023 Telephone [facility]/Trauma [facility] Adult Re[facility] [address] [facility] [address] [place] [address] Silvia Bautista RN Social History Tobacco Use Types Packs/Day [...] encounter Miscellaneous Notes * Telephone Encounter - Silvia Bautista RN - 03/20/2023 9:53 AM EDT RN called to set up new patient with dexa review. 06/02/23 @1130 documented in this encounter Plan of Treatment Upcoming Encounters Date Type Department Care Team (Late st Contact Info) Description 05/25/2025 11:40 AM EDT [facility] Visit [facility] [place] [address] [place] [address] Fadi Higgins MD [address], [address] [address] 06/12/2025 1:30 PM EDT Office Visit [facility] [address] [place] [address] Emma Ledezma MD [address] [facility] [address] [place], [place] [id number] documented as of this encounter Visit Diagnoses Not on filedocumented in this encounter Care Teams Hospital Admitting Clerk Relationship Specialty Start Date End Date Douglas Will MD PCP - General Family Medicine 05/20/21 documented as of this encounter
--- OUTSIDE RECORDS SUMMARY | 2025-05-16 14:59 | XMS_ITS | Patient Health Record ---
Author Organization [facility] Address [address] [address] Care Team Providers Care English As A Second Language Teacher Name Role Phone Ronen Henning Unavailable [phone] Allergies No Known Allergies Reason For Referral No Information Medications Medication SIG (Take, Route, Frequency, Duration) Notes Start Date End Date Status Fludrocortisone Acetate 0.1 MG Tablet 1 tablet Orally Once a day Active amLODIPine Besylate 5 MG Tablet 0 Oral; Duration: 08/22/2010 Active Levothyroxine Sodium 125 MCG Tablet 0 Oral; Duration: 08/22/2010 Active Metoprolol Succinate 25 MG Capsule ER 24 Hour Sprinkle 1 capsule Orally Once a day Active Clopidogrel Bisulfate 75 MG Tablet 1 tablet Orally Once a day Active Aspirin 81 MG Tablet Delayed Release 0 Oral; Duration: 08/22/2010 Active Anusol-HC 25 MG Suppository 1 Rectal 1 D AILY; Duration: 10/01/2010 Active Amitiza 24 MCG Capsule 0 Oral; Duration: 2010 Active hydrALAZINE HCl 25 MG Tablet 1 tablet wi th food Orally Three times a day Active Apixaban 5 MG Tablet 1 tablet Orally Twi ce a day Active Montelukast Sodium 10 MG Tablet 1 tablet Orally Once a day Active Fluticasone Furoate 50 MCG/ACT Aerosol Powder Breath Activated 1 puff Inhalation Once a day Active Sucralfate 1 GM Tablet 1 tablet on an em pty stomach Orally Twice a day Active Celecoxib 200 MG Capsule 1 capsule with food Orally Once a day Active Warfarin Sodium 5 MG Tablet 0 Oral; Duration: 08/22/2010 Active Bisoprolol-hydroCHLOROthiazi d e 5-6.25 MG Tablet 1 tablet Orally Once a day Active Simvastatin 80 MG Tablet 0 Oral; Duration: 01/2011 Active Trelegy Ellipta 100-62.5-25 MCG/ACT Aerosol Powder Breath Activated 1 puff Inhalation Once a day Active Carbidopa-Levodopa 25-100 MG Tablet 1 tablet as needed Orally Two times a Week Active traZODone HCl 150 MG Tablet 1 tablet at bedtime Orally Once a day Active Zetia 10 MG Tablet 0 Oral; Duration: 30 08/22/2010 Active Social History Tobacco Use: Social History Observation Description Date Details (start date - stop date) Former Smoker NA - NA Social History Drugs/Alcohol(Archived) Social Info Question Answer Notes Alcohol Screen (Audit-C) Did you have a drink containing alcohol in the past year? No Points 0 Interpretation Negative Drugs Have you used drugs other than those for medical reasons in the past 12 months? No Tobacco Use: Social Info Question Answer Notes Tobacco Use/Smoking (Archived) Are you a? former smo ker How long has it been since you last smoked? > 10 years Additional Findings: Tobacco User Modera te cigarette smoker (10-19 cigs/day) Additional Findings: Tobacco Non-User Current no n-smoker Tobacco use other than smoking: Are you an other tobac co user? No Problems Problem Type SNOMED Code ICD Code Onset Dates Problem Status W/U Status Risk Notes Problem Gastroesophageal reflux disease (disorder) (707897729) Chronic GERD (K21.9) Active confirmed Not well controlled with Pantoprazole 40 mg BID and Famotidine 40 mg BID. Problem Achalasia of esophagus (44989246) Achalasia status post Heller myotomy with Francisco Javier fundoplication (K22.0) Active confirmed Surgery on 05/20/23 Plan Of Treatment No Information Insurance Providers Payer Name Payer Address Payer Phone Subscriber Number Group Number Insured Name Patient Relationship to Insured Coverage Start Date Coverage End Date [place] B [place] [employer] [address] [address] [place] [address] [id number] LEYLA LAMBERT Self - patient is the insured [address] [place], [place] [id number] [address] [place] [id number] LEYLA LAMBERT Self - patient is the insured Medical (General) History Medical History History ICD Code Hypertension Hypercholesterolemia Hypothyroidism Deep Vein Thrombosis (DVT) and PE Diverticulosis Surgical History Surgery Date(Month/Year) EGD by myself on 08/24/2023 showed benign-appearing esophageal stricture probably at the surgical site, post esophageal dilatation over guidewire with#48 Esophagomyotomy heller with toupet fondo plication 2023-05-20 Appendectomy 1958 08 Colonoscopy: Colonoscopy was done on Apr 01, 2010, which revealed: Sigmoid colon:- diverticulosis. Mastectomy 7750-9550 Hysterectomy 1979 Gallbladder Remove 1979
--- OUTSIDE RECORDS SUMMARY | 2025-05-16 14:59 | XMS_ITS | Encounter Summary ---
Author Organization [facility] Address [address] [place] [address] Care Team Providers Care Electronic Scanner Operator Name Role Phone Douglas Will MD Primary Care Provider [phone] Ke Marte MA Unavailable [phone] Encounter Details Date Type Department Care Team (Late st Contact Info) Description 03/17/2024 External Result Encounter [facility] [address] [place] [address] Douglas Will MD [address] [place] [address] Social History Tobacco Use Types Packs/Day Years [...] EDT Office Visit [facility] [address] [place] [phone] Susie Quintero DO [address] [place] [address] documented as of this encounter Procedures Procedure Name Priority Date/Time Associated Diagnosis Comments XR LUMBAR SPINE 2-3 VIEWS 03/17/2024 10:17 PM EDT T3, FREE Routine 03/17/2024 4:45 PM EDT TSH Routine 03/17/2024 4:45 PM EDT documented in this encounter Results * XR lumbar spine 2 or 3 views (03/17/2024 10:17 PM EDT) Anatomical Region Laterality Modality Spine, L-spine Radiographic Josefina ging 03/17/2024 10:1 7 PM EDT Narrative 03/17/2024 10:15 PM EDT THIS EXAM WAS PERFORMED AT [facility] HISTORY: An 83 year old female with the history of the chronic low back pain and increase in severity. TECHNIQUE: Lumbar spine: 3 views COMPARISON: Comparison is made with the CT scan of the abdomen and pelvis of 12/20/2023. FINDINGS: Lumbar vertebrae are normal in heights. There is a compression deformity of the superior endplate of the T12 and appears to be old in age. There is some mild dextroscoliosis. No spondylolisthesis is identified. There are mild degenerative changes in the thoracolumbar spine. Pedicles are intact. Both sacroiliac joints are intact. There is a presence of the gastrostomy tube. Inferior vena cava filter is seen. There are aortic calcifications. IMPRESSION: * Old compression deformity of the superior endplate of the T12. Lumbar vertebrae are normal in heights. * No evidence of spondylolisthesis or other acute bony pathology. 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 Finalized by Jayson Subramanian MD on 03/17/2024 10:15 PM Procedure Note Radiology, Radiologist, - 03/17/2024 THIS EXAM WAS PERFORMED AT [facility] HISTORY: An 83 year old female with the history of the chronic low backpain and increase in severity. TECHNIQUE: Lumbar spine: 3 views COMPARISON: Comparison is made with the CT scan of the abdomen and pelvisof 12/20/2023. FINDINGS: Lumbar vertebrae are normal in heights. There is a compressiondeformity of the superior endplate of the T12 and appears to be old inage. There is some mild dextroscoliosis. No spondylolisthesis isidentified. There are mild degenerative changes in the thoracolumbar spine. Pediclesare intact. Both sacroiliac joints are intact. There is a presence of the gastrostomy tube. Inferior vena cava filter isseen. There are aortic calcifications. IMPRESSION: * Old compression deformity of the superior endplate of the T12. Lumbarvertebrae are normal in heights. * No evidence of spondylolisthesis or other acute bony pathology. 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 Finalized by Jayson Subramanian MD on 03/17/2024 10:15 PM Douglas Will MD IMG XR PROCEDURES Final Result * T3, free (03/17/2024 4:45 PM EDT) FREE T3 2.96 2.50 - 3.90 pg/mL [facility] Comment:PERFORMED AT [address], [place] [address] 03/17/2024 4:45 PM EDT 03/17/2024 4:46 PM EDT Douglas Will MD LAB BLOOD ORDERABLES Final Resul t Performing Organization Address City/[facility]/ZIP Co de Phone Number [facility] * (ABNORMAL) TSH (03/17/2024 4:45 PM EDT) TSH 0.10(L) 0.49 - 4.67 uIU/mL [facility] FREE T4 1.68(H) 0.61 - 1.60 ng/dL [facility] Comment:PERFORMED AT [address], [place] [address] 03/17/2024 4:45 PM EDT 03/17/2024 4:46 PM EDT us Douglas Will MD LAB BLOOD ORDERABLES Final Resul t [facility] documented in this encounter Visit Diagnoses Not on filedocumented in this encounter Care Teams Electronic Scanner Operator Relationship Specialty Start Date End Date Douglas Will MD PCP - General Family Medicine 12/16/23 Ke Marte MA [address] [place] [address] Family Medicine 01/20/25 04/11/25 documented as of this encounter
--- OUTSIDE RECORDS SUMMARY | 2025-05-16 14:59 | XMS_ITS | Patient Health Record ---
Author Organization [facility] Address [facility] [address] [place] [address] Support Name Relationship Address Phone Nahomy Fried Guarantor Unknown [phone] Allergies Allergen (clinical drug ingredient) Drug/Non Drug [...] 1 capsule with food Orally Once a day; Duration: 60 days Active CeleBREX 200 MG 1 capsule with food Orally Once a day Active Problems Problem Type SNOMED Code ICD Code Onset Dates Problem Status W/U Status Risk Notes Problem Chronic pain syndrome (904615431) Chronic pain syndrome (G89.4) Active confirmed Problem Lumbar radiculopathy (949874704) Lumbar radiculopathy (M54.16) Active confirmed Problem Acquired spondylolisthesis (055880594) 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) Active confirmed Problem History of left total knee replacement (4094028429821214) History of total left knee replacement (Z96.652) Active confirmed Plan Of Treatment Pending Test Test Name Order Date CT Scan : Lumbar Spine 09/04/2021 Ultrasound : Lower Extremity, right 08/17 Insurance Providers Payer Name Payer Address Payer Phone Subscriber Number Group Number Insured Name Patient Relationship to Insured Coverage Start Date Coverage End Date [employer] [place] [address] [place] [phone] [id number] Nahomy Fried Self - patient is the insured [address] [phone] [id number] Nahomy Fried Self - patient is the insured Medical (General) History Medical History History ICD Code Arthritis Orthostatic Hypotension Hypothyroidism Pulmonary Embolism Insomnia Cyst on Left Kidney Heart Disease (Pace Maker) Breast Cancer (Mastectomy) Surgical History Surgery Date(Month/Year) TKR (right) X 2 Hysterctomy Mastectomy (Bilateral) Pace Maker Colectomy Hospitalization History Reason Date(Month/Year) Infection on Right leg
--- OUTSIDE RECORDS SUMMARY | 2025-05-16 14:59 | XMS_ITS | Encounter Summary ---
[facility] [id number] [address] [place] [address] Care Team Providers Care Checkerer Hand Name Role Phone Douglas Will MD Primary Care Provider Encounter Details Date Type Department Care Team (Late st Contact Info) Description 02/25/2023 Orders Only [facility] Orth[facility]ics/Trauma and Adult Reconstruction [address] [place] [address] Ref Prov, [place] [address] Social History Tobacco Use Types Packs/Day Years [...] AM EDT Office Visit [facility] [place] [address] [place] [address] Fadi Higgins MD [address], [address] [place] [address] 06/12/2025 1:30 PM EDT Office Visit [facility] Pulmonary/Sleep Medicine [address] [place] [address] Emma Ledezma MD [address] [facility] [address] [place] [address] documented as of this encounter Procedures Procedure Name Priority Date/Time Associated Diagnosis Comments MULTIPLE RADS Routine 12/10/2022 11:04 AM EDT MULTIPLE RADS Routine 12/10/2022 documented in this encounter Results * Multiple rads (12/10/2022 11:04 AM EDT) Anatomical Region Laterality Modality Other us Not In System Ref Prov [facility] Final Res ult * Multiple rads (12/10/2022) Anatomical Region Laterality Modality Other us Not In System Ref Prov [facility] Final Res ult documented in this encounter Visit Diagnoses Not on filedocumented in this encounter Care Teams Checkerer Hand Relationship Specialty Start Date End Date Douglas Will MD PCP - General Family Medicine 05/20/21 documented as of this encounter
--- OUTSIDE RECORDS SUMMARY | 2025-05-16 14:59 | XMS_ITS | Encounter Summary ---
Author Organization [facility] Address [address] [place] [address] Care Team Providers Care Compressor Mechanic Name Role Phone Douglas Will MD Primary Care Provider [phone] Ke Marte MA Unavailable [phone] Encounter Details Date Type Department Care Team (Late st Contact Info) Description 12/09/2024 Results Follow-Up [facility] [address] [place] [address] Douglas Will MD [address] [place] [address] D-dimer, quantitative, CBC auto differential, Hemoglobin A1c, Additional followed-up results: 3 Social History Tobacco Use Types Packs/Day Years [...] EDT Office Visit [facility] [address] [place] [address] Susie Quintero, DO [address] [place] [address] documented as of this encounter Visit Diagnoses Not on filedocumented in this encounter Additional Health Concerns Assessment Noted Time PHQ-9 Depression Total Score: 6 12/08/19 25 1:00 PM EDT documented as of this encounter Care Teams Compressor Mechanic Relationship Specialty Start Date End Date Douglas Will MD PCP - General Family Medicine 12/16/23 Ke Marte MA [address] [place] [address] Family Medicine 01/20/25 04/11/25 documented as of this encounter
--- OUTSIDE RECORDS SUMMARY | 2025-05-16 14:59 | XMS_ITS | Encounter Summary ---
Author Organization [facility] Address [address] [place] [address] Care Team Providers Care Machine Ii Engraver Name Role Phone Douglas Will MD Primary Care Provider [phone] Ke Marte MA Unavailable [phone] Encounter Details Date Type Department Care Team (Late st Contact Info) Description 12/17/2023 Clinisync Result Encounter [facility] External Department Unsolicited Provider, Generic External Data Social History Tobacco Use Types Packs/Day Years [...] EDT Office Visit [facility] [address] [place] [address] Susie Quintero, DO [address] [facility] [place] [address] documented as of this encounter Procedures Procedure Name Priority Date/Time Associated Diagnosis Comments XR CHEST (2 VW) 12/17/2023 11:04 AM EDT ALL PRO BNP Routine 12/17/2023 10:42 AM EDT ALL CBC WITH AUTO DIFF Routine 12/17/2023 10:42 AM EDT ALL BASIC METABOLIC PANEL Routine 12/17/2023 10:42 AM EDT documented in this encounter Results * XR CHEST (2 VW) (12/17/2023 11:04 AM EDT) Anatomical Region Laterality Modality Other 12/17/2023 11:0 4 AM EDT Narrative 12/17/2023 11:08 AM EDT EXAMINATION: TWO XRAY VIEWS OF THE CHEST 12/17/2023 10:54 am COMPARISON: 04/02/2022 HISTORY: ORDERING SYSTEM PROVIDED HISTORY: History of chest pain FINDINGS: Transvenous pacer remains in place. Aortic stent in place. Stable cardiomegaly. Small bilateral pleural effusions. No pneumothorax. No focal airspace disease. IMPRESSION: Small bilateral pleural effusions Stable cardiomegaly Interpreted by: Juan Carlos Graff MD Signed by: Juan Carlos Graff MD 12/17/23 Final result Procedure Note Radiology, Radiologist, MD - 12/17/2023 EXAMINATION: TWO XRAY VIEWS OF THE CHEST 12/17/2023 10:54 am COMPARISON: 04/02/2022 HISTORY: ORDERING SYSTEM PROVIDED HISTORY: History of chest pain FINDINGS: Transvenous pacer remains in place. Aortic stent in place. Stable cardiomegaly. Small bilateral pleural effusions. No pneumothorax. Nofocal airspace disease. IMPRESSION: Small bilateral pleural effusions Stable cardiomegaly Interpreted by: Juan Carlos Graff MD Signed by: Juan Carlos Graff MD 12/17/23 Final result Generic External Data Provider [facility] Final Result * (ABNORMAL) ALL PRO BNP (12/17/2023 10:42 AM EDT) [facility] PRO-BNP 1,752(H) <300 pg/mL [facility] Comment: An age-independent cutoff point of 300 pg/ml has a 98% negative predictive value excluding acute heart failure. 12/17/2023 10:4 2 AM EDT 12/17/2023 10:43 AM EDT Narrative [facility] - 12/17/2023 11:46 AM EDT Original Ordering Provider: LEONOR DEAL us Generic External Data Provider JOSEFINA koehler Result JOSEFINA [facility] * (ABNORMAL) ALL BASIC METABOLIC PANEL (12/17/2023 10:42 AM EDT) [facility] NA (SODIUM) 138 135 - 144 mmol/L [facility] K (POTASSIUM) 4.1 3.7 - 5.3 mmol/L [facility] CHLORIDE 103 98 - 107 mmol/L [facility] CO2 25 20 - 31 mmol/L [facility] ANION GAP 10 9 - 17 mmol/L [facility] GLUCOSE 96 70 - 99 mg/dL [facility] BUN (UREA N) 12 8 - 23 mg/dL [facility] CREATININE 0.9 0.5 - 0.9 mg/dL [facility] EGFR 63 >60 mL/min/1.7 3m2 [facility] Comment: These results [...] affects renal tubular secretion. [facility] BUN/CRE RATIO 13 9 - 20 [facility] CALCIUM 8.3(L) 8.6 - 10.4 mg/dL [facility] 12/17/2023 10:4 2 AM EDT 12/17/2023 10:43 AM EDT Narrative [facility] - 12/17/2023 11:46 AM EDT Original Ordering Provider: LEONOR DEAL us Generic External Data Provider JOSEFINA koehler Result JOSEFINA [facility] * (ABNORMAL) ALL CBC WITH AUTO DIFF (12/17/2023 10:42 AM EDT) [facility] WBC COUNT 9.3 3.5 - 11.3 k/uL [facility] RBC COUNT 3.13(L) 3.95 - 5.11 m/uL [facility] HEMOGLOBIN 9.5(L) 11.9 - 15.1 g/dL [facility] HEMATOCRIT 30.1(L) 36.3 - 47.1 % [facility] MCV 96.2 82.6 - 102.9 fL [facility] MCH 30.4 25.2 - 33.5 pg [facility] MCHC 31.6 28.4 - 34.8 g/dL [facility]PT RDW 15.0(H) 11.8 - 14.4 % [facility]PT PLATELET COUNT 503(H) 138 - 453 k/uL [facility]PT MPV 9.2 8.1 - 13.5 fL [facility] NRBC AUTOMATED 0.0 0.0 per 100 WBC [facility] 12/17/2023 10:4 2 AM EDT 12/17/2023 10:43 AM EDT Narrative [facility] - 12/17/2023 11:08 AM EDT Original Ordering Provider: LEONOR DEAL us Generic External Data Provider [facility] F inal Result [facility] documented in this encounter Visit Diagnoses Not on filedocumented in this encounter Care Teams Machine Ii Engraver Relationship Specialty Start Date End Date Douglas Will MD PCP - General Family Medicine 12/16/23 Ke Marte MA [address] [place] [address] Family Medicine 01/20/25 04/11/25 documented as of this encounter
--- OUTSIDE RECORDS SUMMARY | 2025-05-16 14:59 | XMS_ITS | Encounter Summary ---
Author Organization [facility] Address [id number] [address] 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) Social History Tobacco Use Types Packs/Day Years Used Date Smoking Tobacco: Former Cigarettes 2 29 1 951 - 1980 Smokeless Tobacco: Never Comments:Smoked less in past Alcohol Use Standard Drinks/Week Comments No 0 (1 standard drink = 0.6 oz pur e alcohol) [facility] Utilities Answer Date Recorded In the past 12 months has [facility] electric, gas, oil, or water company threatened [...] and Family Not on file 05/21/2023 Attends [employer] Not on file 05/21 Active Member [...] Answer Date Recorded Total Score 0 11/24/2023 [facility] - Occupational Stress Questionnaire Answer Date Recorded [...] AM EDT Office Visit [facility] [place] [address] [place] [address] Fadi Higgins MD [address], [address] [address] 06/12/2025 1:30 PM EDT Office Visit [facility] Pulmonary/Sleep Medicine [address] [place] [address] Emma Ledezma MD [address] [facility] [address] [place] [address] documented as of this encounter Visit Diagnoses Diagnosis Anemia associated with other specified nutritional deficiency- Primary documented in this encounter Additional Health Concerns Assessment Noted Time PHQ-9 Depression Total Score: 0 11/24/19 24 11:17 AM EDT documented as of this encounter Care Teams High Man Relationship Specialty Start Date End Date Douglas Will MD PCP - General Family Medicine 05/20/21 documented as of this encounter
--- OUTSIDE RECORDS SUMMARY | 2025-05-16 14:59 | XMS_ITS | Encounter Summary ---
Author Organization [facility] Address [id number] [address] [place] [address] Care Team Providers Care Senior Net Software Engineer Name Role Phone Douglas Will MD Primary Care Provider [phone] Encounter Details Date Type Department Care Team (Late st Contact Info) Description 02/02/2023 Telephone [facility] Pul[facility]/Sleep [facility] [address] [facility] [facility] [place] [address] Jessica Bazan, DO [address] [id number] Social History Tobacco Use Types Packs/Day Years [...] encounter Miscellaneous Notes * Telephone Encounter - Shelli Escobedo - 02/02/2023 10:02 AM EDT Patient called wanting results to the CT she just had on the . Please Advise. thanks * Telephone Encounter - Yaquelin Mariee RN - 02/02/2023 10:02 AM EDT Please review and advise * Telephone Encounter - Jessica Bazan DO - 02/02/2023 10:02 AM EDT This was already addressed by Dr. Ledezma. documented in this encounter Plan of Treatment Upcoming Encounters Date Type Department Care Team (Late st Contact Info) Description 05/25/2025 11:40 AM EDT Office Visit [facility] [place] [address] [place] [address] Fadi Higgins MD [address] , [address] [address] 06/12/2025 1:30 PM EDT Office Visit [facility] Pul[facility]/Sleep Medicine [address] [facility] [place] [address] Emma Ledezma MD [address] [facility] [address] [place] [address] documented as of this encounter Visit Diagnoses Not on filedocumented in this encounter Care Teams Senior Net Software Engineer Relationship Specialty Start Date End Date Douglas Will MD PCP - General Family Medicine 05/20/21 documented as of this encounter
--- OUTSIDE RECORDS SUMMARY | 2025-05-16 15:00 | XMS_ITS | Encounter Summary ---
Author Organization [facility] Address [id number] [address] [facility] [place] [address] Care Team Providers Care Stamping Press Operator Name Role Phone Douglas Will MD Primary Care Provider Encounter Details Date Type Department Care Team (Late st Contact Info) Description 03/09/2024 Telephone [facility] Orthopedics/Trauma and Adult Reconstruction [address] [facility] [address] [place] [address] Yoel Hollingsworth MD [address] [place] [address] Social History Tobacco Use Types Packs/Day Years Used Date Smoking Tobacco: Former Cigarettes 2 29 1 951 - 1980 Smokeless Tobacco: Never Comments:Smoked less in past Alcohol Use Standard Drinks/Week Comments No 0 (1 standard drink = 0.6 oz pur e alcohol) [facility] Utilities Answer Date Recorded In the past 12 months has [employer], gas, oil, or water [employer] threatened to shut off services in your home? No 01/15/2024 Social Connection and Isolat ion Panel [NHANES] Answer Date Recorded In a typical week, how many times do you talk on the phone with family, friends, or neighbors? More than three times a week 05/21/2023 Frequency of Social Gatherin gs with Friends and Family Not on file 05/21/2023 Attends [employer] Not on file 05/21 Active Member [...] Answer Date Recorded Total Score 0 12/21/2023 [facility] - Occupational Stress Questionnaire Answer Date [...] got money to buy more. Never True 01/15/2024 Within the past 12 months th e food we bought just didn't last and we didn't have money to get more. Never True 01/15/2024 Purpose - Life Answer Date Recorded Purpose and direction in life Unknown Comments No Sex and Gender Information Value Date Recorded Sex Assigned at Not on file Legal Sex Female 11:22 AM EDT Gender Identity Not on file Sexual Orientation Not on file documented as of this encounter Miscellaneous Notes * Telephone Encounter - Lina Parham - 03/09/2024 8:37 AM EDT Patient returned Bella's call regarding her back pain. Patient mentions her calcium intake is 500mg3 times a day. documented in this encounter Plan of Treatment Upcoming Encounters Date Type Department Care Team (Late st Contact Info) Description 05/25/2025 11:40 AM EDT Office Visit [facility] [place] [address] [place] [address] Fadi Higgins MD [address], [address] [address] 06/12/2025 1:30 PM EDT Office Visit [facility]Sleep [facility] [address] [place] [address] Emma Ledezma MD [address] [facility] [address] [place] [address] documented as of this encounter Visit Diagnoses Not on filedocumented in this encounter Additional Health Concerns Assessment Noted Time PHQ-9 Depression Total Score: 0 12/21/19 24 10:24 AM EDT documented as of this encounter Care Teams Stamping Press Operator Relationship Specialty Start Date End Date Dougals Will MD PCP - General Family Medicine 05/20/21 documented as of this encounter
--- OUTSIDE RECORDS SUMMARY | 2025-05-16 15:00 | XMS_ITS | Encounter Summary ---
Author Organization [facility] Address [facility] [id number] 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) drug therapy (Primary Dx); Age-related osteoporosis without current pathological fracture; Encounter for special examination Social History Tobacco Use Types Packs/Day Years Used Date Smoking Tobacco: Former Cigarettes 2 29 1 951 - 1980 Smokeless Tobacco: Never Comments:Smoked less in past Alcohol Use Standard Drinks/Week Comments No 0 (1 standard drink = 0.6 oz pur e alcohol) [facility] Utilities Answer Date Recorded In the past 12 months has [employer], gas, oil, or water [employer] threatened to shut off services in your [...] Answer Date Recorded Total Score 0 12/21/2023 [facility] - Occupational Stress [...] AM EDT Office Visit [facility] [place] [address] Fadi Higgins MD [address], [address] [address] 06/12/2025 1:30 PM EDT Office Visit [facility] [address] [place] [id number] Emma Ledezma MD [address] [place] [address] documented as of this encounter Results * Dexa scan central skeletal (06/16/2024 3:12 PM EDT) Anatomical Region Laterality Modality Spine, Hip N/A DXA Scan 06/16/2024 9:38 PM EDT Narrative 06/16/2024 9:39 PM EDT CLINICAL INFORMATION: Other furniture removalist's assistant (current) drug therapy; Age-related osteoporosis without current pathological fracture; Encounter for special examination. , Post menopausal, TECHNIQUE: Dual X-ray Absorptiometry (DXA) was performed. COMPARISON: 04/03/2023 FINDINGS: LUMBAR SPINE (L1-L4): BMD is 1 gm/cm2. T-score is -1.5. LEFT FEMORAL NECK: BMD is 0.65 gm/cm2. T-score is -2.8. LEFT TOTAL FEMUR: BMD is 0.59 gm/cm2. T-score is -3.3. RIGHT FEMORAL NECK: BMD is 0.65 gm/cm2. T-score is -2.8. RIGHT TOTAL FEMUR: BMD is 0.61 gm/cm2. T-score is -3.2. The estimated 10-year probability for a major osteoporotic fracture (utilizing FRAX) is 10.6% and for a hip fracture is 4.5%. IMPRESSION: The exam is considered to be osteoporotic by the National Osteoporosis Foundation guidelines. Recommend consideration for initiation of therapy. WHO CLASSIFICATION: Normal: T-score -1.0 or above Osteopenia: T-score -1.1 to < 2.5 Osteoporosis: T-score -2.5 or lower Secondary causes of bone loss should be evaluated if clinically indicated since the etiology of low BMD cannot be determined by BMD measurement alone. The current National Osteoporosis Foundation guide recommends treating patients with FRAX ten year risk scores of greater than or equal to 3% for hip fracture or greater than or equal to 20% for major osteoporotic fracture, to reduce their fracture risk. Finalized by Lloyd Davsi MD on 06/16/2024 9:39 PM Procedure Note Lloyd Davis MD - 06/16/2024 CLINICAL INFORMATION: Other skilled nursing (current) drug therapy; Age-related osteoporosis withoutcurrent pathological fracture; Encounter for special examination. , Postmenopausal, TECHNIQUE: Dual X-ray Absorptiometry (DXA) was performed. COMPARISON: 04/03/2023 FINDINGS: LUMBAR SPINE (L1-L4): BMD is 1 gm/cm2. T-score is -1.5. LEFT FEMORAL NECK: BMD is 0.65 gm/cm2. T-score is -2.8. LEFT TOTAL FEMUR: BMD is 0.59 gm/cm2. T-score is -3.3. RIGHT FEMORAL NECK: BMD is 0.65 gm/cm2. T-score is -2.8. RIGHT TOTAL FEMUR: BMD is 0.61 gm/cm2. T-score is -3.2. The estimated 10-year probability for a major osteoporotic fracture(utilizing FRAX) is 10.6% and for a hip fracture is 4.5%. IMPRESSION: The exam is considered to be osteoporotic by the National OsteoporosisFoundation guidelines. Recommend consideration for initiation oftherapy. WHO CLASSIFICATION: Normal: T-score -1.0 or above Osteopenia: T-score -1.1 to < 2.5 Osteoporosis: T-score -2.5 or lower Secondary causes of bone loss should be evaluated if clinically indicatedsince the etiology of low BMD cannot be determined by BMD measurementalone. The current National Osteoporosis Foundation guide recommends treatingpatients with FRAX ten year risk scores of greater than or equal to 3% forhip fracture or greater than or equal to 20% for major osteoporoticfracture, to reduce their fracture risk. Finalized by Lloyd Davis MD on 06/16/2024 9:39 PM Radhika Harper SANDBLASTING SUPERVISOR-ORNAMENTAL IRONWORKER IMG DXA ORDERABLES Khushbu l Result documented in this encounter Visit Diagnoses Diagnosis Other furniture removalist's assistant (current) drug therapy- Primary Age-related osteoporosis without current pathological fracture Encounter for special examination Other furniture removalist's assistant (current) drug therapy Age-related osteoporosis without current pathological fracture Encounter for special examination documented in this encounter Additional Health Concerns Assessment Noted Time PHQ-9 Depression Total Score: 0 12/21/19 24 10:24 AM EDT documented as of this encounter Care Teams Auto Parts Handler Relationship Specialty Start Date End Date Douglas Will MD PCP - General Family Medicine 05/20/21 documented as of this encounter
== END 2025-05-16 14:56 | disposition home or self-care (01) ==
LOC: WC 14:55
PROVIDERS: PCP Family Medicine; Visit Provider Physician Assistant
DX: S81.801A Unspecified open wound, right lower leg, initial encounter (principal); S71.101A Unspecified open wound, right thigh, initial encounter
CPT/HCPCS: 29581; A6213

== ENCOUNTER 2025-05-30 13:38 | Outpatient (OUT) | payer MEDICARE, OTHER, SELFPAY ==
--- OUTSIDE RECORDS SUMMARY | 2025-05-24 10:16 | XMS_ITS | Continuity of Care Document ---
Author Organization [facility] Address [address] [place] [address] Phone Care Team Providers Care Applications Consultant Name Role Phone Douglas Will MD Primary Care Provider [phone] Atilio Wade MD Attending Provider Douglas Will MD Attending Provider Care Teams Patient Care Team Team Status: Active Member Role Status Dates Douglas Will MD Primary Care Provider Active Visit Care Team Team Status: Inactive Member Role Status Dates Douglas Will MD Primary Care Provider Active S tart: May 10, 2025 End: May 10, 2025 Atilio Wade MD Attending Provider Active S tart: May 10, 2025 End: May 10, 2025 Patient Care Team Team Status: Inactive Member Role Status Dates Douglas Will MD Primary Care Provider Active S tart: May 24, 2025 End: May 24, 2025 Douglas Will MD Attending Provider Active Star t: May 24, 2025 End: May 24, 2025 Chief Complaint and Reason for Visit Chief Complaint Admit Date esophageal stricture/REFER April 1:25pm Established Patient May 24, 2025 1: 20pm Reason for Visit Admit Date Dysphagia May 10, 2025 1:25pm Esophageal stricture May 10 1:25pm Anemia due to stage 3b chronic kidney di sease May 24, 2025 1:20pm Chronic diastolic CHF (congestive heart failure) May 24, 2025 1:20pm COPD (chronic obstructive pulmonary dise ase) May 24, 2025 1:20pm Coronary artery disease May 24 1:20pm MDD (major depressive disorder), recurre nt episode May 24, 2025 1:20pm Orthostatic hypotension May 24 1:20pm Allergies, Adverse Reactions, Alerts Allergen Type Severity Reaction Last Updated Verified Status acetaminophen Allergy Mild Unknown Reaction Octob er 2024 1:37pm Yes Active cobalt Allergy Unknown Unknown Reaction May 24, 2025 1:37pm Yes Active codeine Allergy Unknown Unknown Reaction May 24, 2025 1:37pm Yes Active gold Au 198 Allergy Unknown Unknown Reaction May 24, 2025 1:37pm Yes Active latex Allergy Unknown Hives May 24, 025 1:37pm Yes Active nickel Allergy Unknown Unknown Reaction May 24, 2025 1:37pm Yes Active Social History Smoking Status Status Start Date End Date Date of Observa tion Ex-smoker (finding) Aprseferinoe r 2024 1:39pm Observation Status Observation Response [...] Active H/O Clostridium difficile infection Unknown Active Anemia due to stage 3b chronic kidney disease Un known Active CARISA (obstructive sleep apnea) Unknown Ac tive History of esophagomyotomy Unknown Activ e terminologist 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 Unknown Active Primary [...] Diverticular disease Unknown Active Diverticulosis Unknown Active Orthostatic hypotension Unknown Active Coronary artery disease Unknown Active Increased thirst Unknown Active Dysautonomia orthostatic hypotension syndrome Un known Active History of electroconvulsive therapy Unknown Active Dysphagia Unknown Active Fibromyalgia Unknown Active Migraine headache Unknown Active History of inferior vena caval filter placement Unknown Active Mixed hyperlipidemia Unknown Active Angina of effort Unknown Active Supplemental oxygen dependent Unknown Ac tive Hypercoagulable state, secondary Unknown Active Chronic kidney disease, unspecified Unknown Active longterm (current) use of antithrombotics/antip latelets Unknown Active [...] lung Unknown Active Schatzki's ring Unknown Active MDD (major depressive disorder), recurrent episo de Unknown Active Seasonal allergic rhinitis due to pollen Unknown Active Despondency Unknown Active BMI 32.0-32.9,adult Unknown Active Chronotropic incompetence with autonomic dysfunc tion Unknown Active COPD (chronic obstructive pulmonary disease) Unk nown Active CPAP (continuous positive airway pressure) depen dence Unknown Active Uses walker Unknown Active Balance problem Unknown Active History of pulmonary embolism Unknown Ac tive Rosacea Unknown Active Esophageal stricture Unknown Active Dyskinesia of esophagus Unknown Active Allergic rhinitis Unknown Active Chronic diastolic CHF (congestive heart failure) Unknown Active Difficulty walking Unknown Active Hiatal hernia Unknown Active Asthma Unknown Active Inactive/Resolved Problems Medical Problem Onset Date Status Depression Unknown Resolved Noninfected skin tear of leg Unknown Res olved Orthostatic hypertension Unknown Resolve d COPD exacerbation Unknown Resolved Medications Medication Status Dose Units Route Directions Qty Days St art Date Stop Date End Date Instructions Adherence Celecoxib 200 mg capsule Active 200 MG PO Twice daily 180 2024 11:05a m Complies with drug therapy Clopidogrel 75 mg tablet Active 75 MG PO Daily 90 2024 11:06a m Complies with drug therapy Levothyroxi ne 100 mcg tablet Active 100 MCG PO Daily 30 2024 11:07a m Complies with drug therapy Trazodone 150 mg tablet Active 150 MG PO Bedtime 90 2024 3:51pm Complies with drug therapy Metoprolol Succinate 50 mg tablet extended release 24 hr Discont inued 50 MG PO Daily 2022 12:00a m November 29, 2024 6:46p m Warfarin 7.5 mg tablet Discont inued 7.5 MG PO As Directed 2022 12:00a m November 29, 2024 6:37p m Hydralazine 25 mg tablet Discont inued 25 MG PO Daily 2022 12:00a m [facility] 2024 1:35p m Clopidogrel 75 mg tablet Discont inued 75 MG PO Daily 2022 12:00a m Octob er 2024 11:07 am Amlodipine 5 mg tablet Discont inued 5 MG PO Daily 2022 12:00a m November 29, 2024 6:44p m Levothyroxi ne 100 mcg tablet Discont inued 100 MCG PO Daily 2022 12:00a m Octob er 2024 11:07 am Pantoprazol e 40 mg Tablet,Sobeida yed Release (Dr/Ec) Discont inued 40 MG PO Daily 2022 12:00a m [facility] 2024 1:35p m Trazodone 150 mg tablet Discont inued 150 MG PO Bedtime 2022 12:00a m Octob er 2024 3:52p m Montelukast 10 mg tablet Active 10 MG PO Daily 2022 12:00a m Complies with drug therapy Carbidopa-L evodopa 25-100 mg tablet Discont inued 1 TAB PO Bedtime 2022 12:00a m [facility] 2024 1:33p m Fluticasone Propionate 50 mcg/actuati on spray,suspe nsion Discont inued 2 SPRAY INTRAN SVETLANA Daily 2022 12:00a m [facility] 2024 1:34p m Fludrocorti sone 0.1 mg tablet Discont inued 0.1 MG PO Daily 2022 12:00a m [facility] 2024 1:38p m Fluticasone -Umeclidin- Vilanter (Trelegy Ellipta) 100-62.5-25 mcg blister with device Active 1 INH INHALA TION Daily 2022 12:00a m Complies with drug therapy Fludrocorti sone 0.1 mg tablet Active 0.2 MG PO Daily 2024 1:33pm Complies with drug therapy Famotidine 40 mg tablet Active 40 MG PO Daily 2024 12:00a m Complies with drug therapy Metoprolol Succinate 100 mg tablet extended release 24 hr Active 100 MG PO Daily 2024 12:00a m Complies with drug therapy Albuterol Sulfate (Ventolin Hfa) 90 mcg/actuati on HFA aerosol inhaler Active INHALA TION 2024 12:00a m Complies with drug therapy Roflumilast 500 mcg tablet Active 500 MCG PO Daily 2024 12:00a m Complies with drug therapy Cephalexin 500 mg capsule Discont inued 500 MG PO Q8H 21 7 November 29, 2024 12:00a m [facility] 2024 1:33p m Apixaban (Eliquis) 5 mg tablet Discont inued 2.5 MG PO Twice daily November 29, 2024 12:00a m [facility] 2024 1:32p m Ropinirole 1 mg tablet Discont inued 1 MG PO Daily at bedtime November 29, 2024 12:00a m [facility] 2024 1:38p m Oxybutynin Chloride 10 mg tablet extended release 24hr Discont inued MG PO November 29, 2024 12:00a m Octob er 2024 4:24p m Furosemide 20 mg tablet Discont inued 20 MG PO Daily November 29, 2024 12:00a m [facility] 2024 1:35p m Atorvastati n 40 mg tablet Active 40 MG PO Daily at bedtime November 29, 2024 12:00a m Complies with drug therapy Celecoxib 200 mg capsule Discont inued 200 MG PO Twice daily November 29, 2024 12:00a m Octob er 2024 11:07 am Clonidine Hcl 0.2 mg tablet Discont inued 0.2 MG PO Daily November 29, 2024 12:00a m Octob er 2024 4:24p m Amlodipine 10 mg tablet Discont inued 10 MG PO Daily November 29, 2024 12:00a m [facility] 2024 1:32p m Olmesartan 40 mg tablet Discont inued 40 MG PO Daily November 29, 2024 12:00a m [facility] 2024 1:35p m Ropinirole 1 mg tablet Active 2 MG PO Daily at [facility] 1:35pm Complies with drug therapy Clonidine Hcl 0.2 mg tablet Active 0.2 MG PO Three times daily as needed for hypertensiv e emergency Octobe r 2024 4:18pm Take one tablet as needed for systolic BP greater than or equal to 170, up to three times daily Complies with drug therapy Oxybutynin Chloride 10 mg tablet extended release 24hr Active [facility] Complies with drug therapy Omeprazole 40 mg capsule,del ayed release(DR/ EC) Active 40 MG PO Daily Octobe r 2024 12:00a m Complies with drug therapy Midodrine 5 mg tablet Discont inued 5 MG PO Twice daily Octobe r 2024 12:00a m Octob er 2024 2:06p m do not give last dose of day after 6PM or within 4 hrs of bedtime Hydralazine 25 mg tablet Discont inued 25 MG PO Twice daily Octobe r 2024 12:00a m Octob er 2024 1:39p m Ferrous Sulfate 325 mg (65 mg iron) tablet Active 325 MG PO Three times daily Octobe r 2024 12:00a m Complies with drug therapy Losartan 25 mg tablet Discont inued 25 MG PO Daily Octobe r 2024 12:00a m Octob er 2024 1:39p m Furosemide 20 mg tablet Discont inued 20 MG PO Daily Octobe r 2024 12:00a m Octob er 2024 1:38p m Carbidopa-L evodopa (Sinemet) 25-100 mg tablet Discont inued 1 TAB PO As Directed as needed Octobe r 2024 12:00a m Octob er 2024 1:37p m One tablet as needed two times a week Midodrine 5 mg tablet Active 5 MG PO Three times daily 90 Octobe r 2024 2:04pm do not give last dose of day after 6PM or within 4 hrs of bedtime Complies with drug therapy Immunizations Immunization Event Date Not Given Reason Dose Number Trade Marker Lot Number Vaccine Information Statement (VIS) Detail [...] (Body Mass Index) 16.7 kg/m2 2024 1:30pm Height 63 [in_i] May 24 1:35pm Weight 41.27 kg May 24 1:35pm Body Temperature 96.6 [degF] 97.6-99.0 May 1:35pm Heart Rate 75 /min 60-100 May 24 1:35pm Respiratory rate 24 /min -May 1:35pm Oxygen saturation by Pulse oximetry 87 % 95-100 May 24, 2025 1: 35pm BP Systolic 104 mm[Hg] 100-140 May 24 1:35pm BP Diastolic 58 mm[Hg] 60-100 May 24 1:35pm BMI (Body Mass Index) 16.1 kg/m2 Octobe r 2024 1:35pm Advance Directives Advance Directive Response Recorded Date/ Time Advance Directives No December 23, 2021 4:18pm Insurance Providers Guarantor Nahomy Marquez Address [address] [place] [address] [address] [place] [id number] Contact Info. Home Phone: Payer Policy Id Subscriber's Name Subscriber Id Effectiv e Date Expiration Date Medicare [id number] Nahomy Marquez [id number] [facility] [id number] Nahomy Marquez [id number] Encounters Encounter Location(s) Arrival/Admit Date Discharge/Depart Date Provider(s) Departed Physician/Prov ider Office Visit -[facility] May 10, 2025 1:25pm May 10, 2025 1:53pm Atilio Wade MD Departed Physician/Prov ider Office Visit -[facility] Pradip May 24, 2025 1:20pm May 24, 2025 2:15pm Douglas Will MD Recent Diagnosis Onset Date Admit Date Dysphagia Unknown May 10, 2025 1:25pm Esophageal stricture Unknown April 182024 1:25pm Anemia due to stage 3b chronic kidney disease Un known May 24, 2025 1:20pm Chronic diastolic CHF (conge stive heart failure) Unknown May 24, 2025 1:20pm COPD (chronic obstructive pulmonary disease) Unk nown May 24, 2025 1:20pm Coronary artery disease Unknown May 24, 2025 1:20pm MDD (major depressive disord er), recurrent episode Unknown May 24, 2025 1:20pm Orthostatic hypotension Unknown May 24, 2025 1:20pm Assessments Diagnosis Onset Date Resolution Status Admit Date Dysphagia acute April 1:25pm Esophageal stricture acute Sept emb2024 1:25pm Anemia due to stage 3b chronic kidney disease acute May 242024 1:20pm Chronic diastolic CHF (congestive heart failure) acute Octob er 2024 1:20pm COPD (chronic obstructive pulmonary disease) acute May 24, 2025 1:20pm Coronary artery disease acute O ctober 2024 1:20pm MDD (major depressive disorder), recurrent episode acute Oct marco a 2024 1:20pm Orthostatic hypotension acute O ctober 2024 1:20pm Plan of Treatment Author Atilio Wade [facility] Authored May 10, 2025 1:54pm This is an 84-year-old femal e with a longstanding history of swallowing problems. In concern she may actually have a motility disorder as her chart history lists a history of esophagomyotomy. She also has severe cardiopulmonary comorbid conditions. [facility] [place] We will do a records release from her cardiology notes, additionally records release for [facility] regarding her dysphagia. Follow-up pending obtaining outside records. Future Tests Future scheduled test information is unavailable Pending Tests Pending diagnostic test information is unavailable Future Visits Future appointment information is unavailable Referrals to Other Providers Referral information is unavailable Future Procedures Future procedure information is unavailable Future Medications Future medication information is unavailable Patient Instructions Patient instructions are unavailable
--- OUTSIDE RECORDS SUMMARY | 2025-05-30 13:44 | XMS_ITS | Patient Health Record ---
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) Active confirmed Problem History of left total knee replacement (9594706168144368) History of total left knee replacement (Z96.652) Active confirmed Plan Of Treatment Pending Test Test Name Order Date CT Scan : Lumbar Spine 09/04/2021 Ultrasound : Lower Extremity, right 08/17 Insurance Providers Payer Name Payer Address Payer Phone Subscriber Number Group Number Insured Name Patient Relationship to Insured Coverage Start Date Coverage End Date [employer] [place] [address] [place] [phone] [id number] Nahomy Fried Self - patient is the insured [address] [phone] [id number] Nahomy Fried Self - patient is the insured Medical (General) History Medical History History ICD Code Arthritis Orthostatic Hypotension Hypothyroidism Pulmonary Embolism Insomnia Cyst on Left Kidney Heart Disease (Pace Maker) Breast Cancer (Mastectomy) Surgical History Surgery Date(Month/Year) TKR (right) X 2 Hysterctomy Mastectomy (Bilateral) Pace Maker Colectomy Hospitalization History Reason Date(Month/Year) Infection on Right leg
--- OUTSIDE RECORDS SUMMARY | 2025-05-30 13:44 | XMS_ITS | Encounter Summary ---
Author Organization [facility] Address [address] [place] [address] Care Team Providers Care Lot Worker Name Role Phone Douglas Will MD Primary Care Provider [phone] Ke Marte MA Unavailable [phone] Encounter Details Date Type Department Care Team (Late st Contact Info) Description 01/24/2025 Results Follow-Up [facility] [address] [place] [address] Douglas Will MD [address] [place] [address] RT PULMONARY FUNCTION TEST Social History Tobacco [...] No 01/20/2025 Social Connection and Isolation Panel Answer Date Recorded In a typical week, how many times do you talk on the phone with family, friends, or neighbors? Three times a week 01/20/2025 How often do you get togethe r with friends or relatives? Once a week 01/20/2025 How often do you attend chur ch or rastafari services? Never 01/20/2025 Do you belong to any clubs o r organizations such as sabianist groups, unions, fraternal or athletic groups, or [...] Recorded Patient Health Questionnaire-2 Score 0 12/07/2024 [facility] - Occupational Stress Questionnaire Answer [...] [facility] the [facility] or living in a [facility] (including now)? No 01/20/2025 Comments Unknown Sex [...] EDT [facility] Visit [facility] [address] [place] [address] Susie Quintero, DO [address] [place] [address] documented as of this encounter Visit Diagnoses Not on filedocumented in this encounter Additional Health Concerns Assessment Noted Time PHQ-9 Depression Total Score: 6 12/08/19 25 1:00 PM EDT documented as of this encounter Care Teams Lot Worker Relationship Specialty Start Date End Date Douglas Will MD PCP - General Family Medicine 12/16/23 Ke Marte MA [address] [place] [address] Family Medicine 01/20/25 04/11/25 documented as of this encounter
--- OUTSIDE RECORDS SUMMARY | 2025-05-30 13:44 | XMS_ITS | Encounter Summary ---
Author Organization [facility] Address [address] [place] [address] Phone Care Team Providers Care Rig Supervisor Name Role Phone Douglas Will MD Primary Care Provider + Encounter Details Date Type Department Care Team (Late st Contact Info) Description 03/07/2025 Scanned Document [facility] [address] [place] [address] Nevin Becerril RN Social History [...] any time in the past 12 m [facility], were you homeless or living in a mcfp (including now)? No 03/28/2024 Comments Unknown Sex and Gender Information Value Date Recorded Sex Assigned at Not on file Legal Sex Female 2:36 PM EST Gender Identity Not on file Sexual Orientation Not on file documented as of this encounter Plan of Treatment Not on file documented as of this encounter Visit Diagnoses Not on filedocumented in this encounter Care Teams Rig Supervisor Relationship Specialty Start Date End Date Douglas Will MD [address] [place] [address] PCP - General Family Medicine 03/03/25 documented as of this encounter
--- OUTSIDE RECORDS SUMMARY | 2025-05-30 13:44 | XMS_ITS | Encounter Summary ---
Author Organization [facility] Address [address] [place] [address] Care Team Providers Care Metal Control Coordinator Name Role Phone Douglas Will MD Primary Care Provider [phone] Ke Marte MA Unavailable [phone] Encounter Details Date Type Department Care Team (Late st Contact Info) Description 01/25/2024 Orders Only [facility] [address] [place] [address] Douglas Will MD [address] [facility] [place] [address] Social History Tobacco Use Types Packs/Day Years [...] EDT Office Visit [facility] [address] [place] [phone] Susie Quintero DO [address] [facility] [place] [address] documented as of this encounter Procedures Procedure Name Priority Date/Time Associated Diagnosis Comments MISCELLANEOUS LAB TEST Routine 01/23/2024 3:22 PM EDT documented in this encounter Results * - Miscellaneous Test (01/23/2024 3:22 PM EDT) Douglas Will MD LAB BLOOD ORDERABLES Final Resul t documented in this encounter Visit Diagnoses Not on filedocumented in this encounter Care Teams Metal Control Coordinator Relationship Specialty Start Date End Date Douglas Will MD PCP - General Family Medicine 12/16/23 Ke Marte MA [address] [place] [address] Family Medicine 01/20/25 04/11/25 documented as of this encounter
--- OUTSIDE RECORDS SUMMARY | 2025-05-30 13:44 | XMS_ITS | Encounter Summary ---
Author Organization [facility] Address [address] [facility] [place] [address] Care Team Providers Care Line Decorator Name Role Phone Douglas Will MD Primary Care Provider [phone] Ke Marte MA Unavailable [phone] Encounter Details Date Type Department Care Team (Late st Contact Info) Description 01/13/2025 Results Follow-Up [facility] [address] [place] [address] Douglas Will MD [address] [place] [address] Basic metabolic panel, CBC and differential, Iron [...] EDT Office Visit [facility] [address] [place] [address] Susie Quintero, DO [address] [place] [address] documented as of this encounter Visit Diagnoses Not on filedocumented in this encounter Additional Health Concerns Assessment Noted Time PHQ-9 Depression Total Score: 6 12/08/19 25 1:00 PM EDT documented as of this encounter Care Teams Line Decorator Relationship Specialty Start Date End Date Douglas Will MD PCP - General Family Medicine 12/16/23 Ke Marte MA [address] [place] [address] Family Medicine 01/20/25 04/11/25 documented as of this encounter
--- OUTSIDE RECORDS SUMMARY | 2025-05-30 13:44 | XMS_ITS ---
Author Organization [facility] Address [address] [place] [address] Phone Care Team Providers Care Plaster Die Maker Name Role Phone Douglas Will MD [...] check 03/25/2022 and card ( scanned into [employer]) Essential hypertension, benign 12/19/2019 Overview (04/01/2024): Last [...] History of cardiovascular disorder 01/18/2013 Chronic pancreatitis ([facility]) 11/22/2012 Asthma (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
--- OUTSIDE RECORDS SUMMARY | 2025-05-30 13:44 | XMS_ITS | Encounter Summary ---
Author Organization [facility] Address [address] [place] [address] Care Team Providers Care Business Objects Architect Name Role Phone Douglas Will MD Primary Care Provider [phone] Ke Marte MA Unavailable [phone] Encounter Details Date Type Department Care Team (Late st Contact Info) Description 03/21/2025 Orders Only [facility] [address] [place] [address] Douglas Will MD [address] [place] [address] Social History Tobacco Use Types Packs/Day Years [...] any clubs o r organizations such as mormonism groups, unions, fraternal or athletic groups, or [...] Recorded Patient Health Questionnaire-2 Score 0 12/07/2024 [facility] - Occupational Stress Questionnaire Answer [...] any time in the past 12 m [facility], were you homeless or living in a half-way (including now)? No 01/20/2025 Comments Unknown Sex [...] AM EDT Office Visit [facility] [address] [place] [address] Susie Quintero, DO [address] [place] [address] documented as of this encounter Procedures Procedure [...] documented as of this encounter Care Teams Business Objects Architect Relationship Specialty Start Date End Date Douglas Will MD PCP - General Family Medicine 12/16/23 Ke Marte MA [address] [place] [address] Family Medicine 01/20/25 04/11/25 documented as of this encounter
--- OUTSIDE RECORDS SUMMARY | 2025-05-30 13:44 | XMS_ITS | Encounter Summary ---
Author Organization [facility] Address [address] [place] [address] Care Team Providers Care Tire Center Supervisor Name Role Phone Douglas Will MD Primary Care Provider [phone] Ke Marte MA Unavailable [phone] Encounter Details Date Type Department Care [...] EDT Office Visit [facility] [address] [place] [address] Susie Quintero, DO [address] [facility] [place] [address] documented as of this encounter Procedures Procedure [...] 12/17/2023 11:46 AM EDT Original Ordering Provider: ELONOR DEAL us Generic External Data Provider JOSEFINA [...] External Data Provider [facility] F [facility]al [facility] documented in this encounter Visit Diagnoses Not on filedocumented in this encounter Care Teams Tire Center Supervisor Relationship Specialty Start Date End Date Douglas Will MD PCP - General Family Medicine 12/16/23 Ke Marte MA [address] [place] [address] Family Medicine 01/20/25 04/11/25 documented as of this encounter
--- OUTSIDE RECORDS SUMMARY | 2025-05-30 13:44 | XMS_ITS | Patient Health Record ---
Author Organization [facility] Address [address] [address] Care Team Providers Care Revenue Investigator Name Role Phone Ronen Henning Unavailable [phone] Allergies No Known Allergies Reason For Referral [...] Zetia 10 MG Tablet 0 Oral; Duration: 08/22/2010 Active Social History Tobacco Use: Social [...] Risk Notes Problem Gastroesophageal reflux disease (disorder) (648449720) Chronic GERD (K21.9) Active confirmed Not well controlled with Pantoprazole 40 mg BID and Famotidine 40 mg BID. Problem Achalasia of esophagus (02920126) Achalasia status post Heller myotomy with Francisco Javier fundoplication (K22.0) Active confirmed Surgery on 05/20/23 Plan Of Treatment No Information Insurance Providers Payer Name Payer Address Payer Phone Subscriber Number Group Number Insured Name Patient Relationship to Insured Coverage Start Date Coverage End Date [place]ICARE B [place] [employer] [address] [address] [place] [address] [id number] LEYLA LAMBERT Self - patient is the insured [address] [place], [place] [address]PrePayMe [address] [place] [address] [phone] [id number] LEYLA LAMBERT Self - patient is the insured Medical (General) History Medical History History ICD Code Hypertension Hypercholesterolemia Hypothyroidism Deep Vein Thrombosis (DVT) and PE Diverticulosis Surgical History Surgery Date(Month/Year) Hysterectomy 1979 Gallbladder Remove 1979 Mastectomy [id number] 1st Colonoscopy: Colonoscopy was done on Apr 01, 2010, which revealed: Sigmoid colon:- diverticulosis. Appendectomy 1958 Esophagomyotomy heller with toupet fondo plication 2023-05-20 EGD by myself on 08/24/2023 showed benign-appearing esophageal stricture probably at the surgical site, post esophageal dilatation over guidewire with#48
--- OUTSIDE RECORDS SUMMARY | 2025-05-30 13:44 | XMS_ITS | Patient Health Record ---
Author Organization [facility] Address [address] [place], [place] [id number] [place], [place] [address] Care Team Providers Care Didactic Instructor Name Role Phone Douglas Will Primary Care Provider Juan Carlos Sesay [phone] Allergies Allergen (clinical drug ingredient) Drug/Non Drug [...] Status W/U Status Risk Notes Problem Gastroparesis (592866390) Gastroparesis (K31.84) Active confirmed Problem Dysphagia (30046800) Dysphagia, unspecified type (R13.10) Active confirmed Encounters Encounter Location Date Provider Diagnosis [facility] [address] [place] [address] [address] [place], [place] [id number] 09/12/2024 Juan Carlos Lacie Plan Of Treatment Pending Test Test Name Order Date Upper gastrointestinal (UGI) series 01/16 Esophagram 02/12/2023 Esophageal Manometry 01/14/2023 Insurance Providers Payer Name Payer Address Payer Phone Subscriber Number Group Number Insured Name Patient Relationship to Insured Coverage Start Date Coverage End Date [place] [address] [place] [address] [id number] Nahomy Fried Self - patient is the insured [employer] [address] [place] [id number] Nahomy Fried Self - patient is the [...]
--- OUTSIDE RECORDS SUMMARY | 2025-05-30 13:44 | XMS_ITS | Encounter Summary ---
Author Organization [facility] Address [address] [place] [address] Care Team Providers Care Table Worker Name Role Phone Douglas Will MD Primary Care Provider [phone] Ke Marte MA Unavailable [phone] Encounter Details Date Type Department Care Team (Late st Contact Info) Description 03/17/2024 External Result Encounter [facility] [address] [place] [address] Douglas Will MD [address] [place] [address] Social History Tobacco Use Types Packs/Day Years [...] EDT Office Visit [facility] [address] [place] [address] Susie Quintero DO [address] [place] [address] documented as of this encounter Procedures Procedure [...] PM EDT THIS EXAM WAS PERFORMED AT [facility] HISTORY: An 83 year old female with [...] - 03/17/2024 THIS EXAM WAS PERFORMED AT [facility] HISTORY: An 83 year old female with [...] 2.50 - 3.90 pg/mL [facility] Comment:PERFORMED AT [address], [place] [address] 03/17/2024 4:45 PM EDT 03/17/2024 4:46 PM EDT Douglas Will MD LAB BLOOD ORDERABLES Final Resul t Performing Organization Address City/[facility]/ZIP Co de Phone Number [facility] * (ABNORMAL) TSH (03/17/2024 4:45 PM EDT) TSH 0.10(L) 0.49 - 4.67 uIU/mL [facility] FREE T4 1.68(H) 0.61 - 1.60 ng/dL [facility] Comment:PERFORMED AT [address], [place] [address] 03/17/2024 4:45 PM EDT 03/17/2024 4:46 PM EDT us Douglas Will MD LAB BLOOD ORDERABLES Final Resul t [facility] documented in this encounter Visit Diagnoses Not on filedocumented in this encounter Care Teams Table Worker Relationship Specialty Start Date End Date Douglas Will MD PCP - General Family Medicine 12/16/23 Ke Marte MA [address] [place] [address] Family Medicine 01/20/25 04/11/25 documented as of this encounter
--- OUTSIDE RECORDS SUMMARY | 2025-05-30 13:44 | XMS_ITS | Encounter Summary ---
Author Organization [facility] Address [address] [place] [address] Care Team Providers Care Vacuum Pan Operator Name Role Phone Douglas Will MD Primary Care Provider [phone] Ke Marte MA Unavailable [phone] Encounter Details Date Type Department Care Team (Late st Contact Info) Description 12/18/2023 Orders Only [facility] [address] [place] [address] Douglas Will MD [address] [facility] [place] [address] Social History Tobacco Use Types Packs/Day Years [...] EDT Office Visit [facility] [address] [place] [address] Susie Quintero DO [address] [facility] [place] [address] documented as of this encounter Procedures Procedure [...] on filedocumented in this encounter Care Teams Vacuum Pan Operator Relationship Specialty Start Date End Date Douglas Will MD PCP - General Family Medicine 12/16/23 Ke Marte MA [address] [place] [address] Family Medicine 01/20/25 04/11/25 documented as of this encounter
--- OUTSIDE RECORDS SUMMARY | 2025-05-30 13:44 | XMS_ITS | Patient Health Record ---
Author Organization [facility] [place] Address [address] [place] [address] Care Team Providers Care Linux Support Engineer Name Role Phone Nakul Andrews MD Primary Care Provider Unavai lable Allergies Allergen (clinical drug ingredient) Drug/Non Drug Allergy documented on EMR Reaction Allergy Type Onset Date Status [place] cobalt (uncoded) rash Allergy Act patience codeine codeine (uncoded) nausea, severe Allergy Active Gold and/or gold compound (FN) gold (uncoded) rash Allergy Active Latex latex (uncoded) rash Allergy Acti ve nickel nickel (uncoded) rash Allergy Act patience Results Component Value Reference Range Notes BILIRUBIN,DIRECT (Not yet re viewed by provider) Interpretation: Performing Lab:[facility]), [address] [place], [place] [address]., [address]. [address] PH:[phone] Notes/Report: BILIRUBIN,DIRECT 0.1 0.0-0.4 mg/dL [address]FORMED [address], [place] [address] The copy-to physician of this order is POLLY Llanos ; , ; The ordering physician of this order is STACEY Guido D DIMER (Not yet reviewed by provider) Interpretation: Performing Lab:[facility], [address] [place] [address]., [place]. [address] PH:[phone] Notes/Report: D DIMER 1419 <255 ng/mL DDU Results >=255ng/mL DDU: Results may be indicative of the presence of VTE. The use of the Wells score and further diagnostic tests should be considered. Elevated D-Dimer levels can also be associated with DIC, neoplasm, , trauma and liver disease. Elevated levels of rheumatoid factor may lead to an overestimation of the D-Dimer level. PERFORMED AT [address] [place] [address] The copy-to physician of this order is POLLY Llanos ; , ; The ordering physician of this order is STACEY Guido COMPREHENSIVE METABOLIC PANE L (Not yet reviewed by provider) Interpretation: Performing Lab:[facility] ([facility]), [address] [place] [address]., [address], [place]. [address] PH:[phone] Notes/Report: SODIUM 141 134-146 mmol/L POTASSIUM 4.2 [...] Reported eGFR is based on the CKD-EPI 1 equation that does not use a race coefficient. PERFORMED AT [address],[place] [address] The copy-to physician of this order is [...] Risk Notes Problem Chronic obstructive pulmonary disease (49974852) Chronic obstructive pulmonary disease, unspecified (J44.9) Active confirmed Problem Lumbosacral spondylosis without myelopathy (77102187) Other spondylosis, lumbar 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) Active confirmed Problem Degenerative scoliosis (0290499129) Degenerative scoliosis (M41.9) Active confirmed Problem Chronic [...] End Date [place]IC[place] [place] [address] [phone] [id number] Nahomy Fried Self - patient is the insured 4 [facility] [address] [place] [address] [id number] Nahomy Fried Self - patient is the [...]
--- OUTSIDE RECORDS SUMMARY | 2025-05-30 13:44 | XMS_ITS | Clinical Summary ---
Author Organization [facility] Address [address] [place] [address] Phone Care Team Providers Care Armature Winder Repair Name Role Phone Douglas Will MD Primary Care Provider + Allergies Active Allergy Reactions Criticality Noted Date Comments Acetaminophen-Codeine Unknown,GI intolerance,GI Upset,Nausea Only,Other Medium 03/31/2011 Other reaction(s): Abdominal Pain Steuben Itching,Other,Unknow n,Rash High 03/01/2014 Other reaction(s): Welts welts Codeine GI intolerance,Unknown, Nausea Only,Other Medium 04/08/2018 Other reaction(s): nausea, severe Acetaminophen-codeine Other reaction(s): nausea, severe Acetaminophen-codeine Other reaction(s): nausea, severe Other reaction(s): Abdominal Pain Droxidopa Shortness of breath High 02/14/2020 Gold Au 198 Unknown,Itching,Othe r,Rash Low 07/20/2014 Other reaction(s): Welts itching Gold Keratinate Unknown,Itching,Othe r,Rash Low 12/05/2016 itching Steuben Nickel welts Other reaction(s): Welts Other reaction(s): Intolerance itching Gold Sodium Thiomalate (Bulk) Itching,Other,Rash Low 08/04/2014 Other reaction(s): Welts Latex Itching,Other,Rash High 05/31/2012 Patient states allergic to Latex Patient states allergic to Latex Other reaction(s): Welts Patient states allergic to Latex Levonorgestrel-Ethiny l [address]str[address] Cough,Itching,Runny nose Medium 11/19/2015 Nickel Hives,Itching,Other, Rash High 03/01/2014 Other reaction(s): Welts Other Other 10/04/2018 [facility] - [id number]: Nickel, Steuben, Gold Compounding Medications acetaminophen (Tylenol) 500 mg [...] check 03/25/2022 and card ( scanned into [employer]) Essential hypertension, benign 12/19/2019 Overview (04/01/2024): Last [...] History of cardiovascular disorder 01/18/2013 Chronic pancreatitis ([facility]) 11/22/2012 Asthma ([facility]) 06/21/2012 Pulmonary hypertension (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 so has IVC filter placed History of thromboembolism of vein 12/17/2011 Overview (04/01/2024): Last Assessment & Plan: Assessment: Hx DVT s/p [place] filter ( 2007), PE anticoagulated denies any [...] sinusitis, unspecified 04/01/2024 04/01/2024 Acute respiratory failure (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 04/01/2024 Overview (04/01/2024): Last Assessment [...] Description 03/09/2025 12:34 PM EDT Anesthesia [place] [address] [place] [address] Tavo Valadez MD 03/09/2025 Telephone [facility] [address] [address] Nevin Becerril RN 03/07/2025 Telephone [facility] [address] [address] Nevin Becerril, RN EGD 03/07/2025 Scanned Document [facility] [address] [address] Nevin Becerril, OMAR 03/07/2025 Telephone [facility] [address] [address] Nevin Becerril, OMAR from Last 3 Months Social History Tobacco [...] were you homeless or living in a skilled nursing (including now)? No 03/28/2024 Comments Unknown Sex [...] Scan 04/03/2025 04/03/2023, 04/03/2023 COVID-19 Vaccine ( - 2024- season) 2025 07/18/2023, 04/15/2022, 06/25/2021 Influenza Vaccine [...] this topic Medical Devices Implanted Type Area Automatic Splicing Machine Operator Device Identifier Shelf Expiration Date Model / Serial / Lot Yaneth Case [id number] Implanted:Qty: 1 on 07/05/2020 by Garland Vincent MD Implant [employer] 01/16/2021 CFX-10 [id number] Description:Converted from [facility] Care Acute. Please see archived information [...] Renal Function Panel (04/01/2024 7:16 AM EDT) Pathologist [facility] [place] Glucose 93 74 - 99 mg/dL LAB CHEMISTRY METHOD 04/01/2024 7:50 AM [facility] Sodium 138 136 - 145 mmol/L LAB CHEMISTRY METHOD 04/01/2024 7:50 AM [facility] Potassium 3.9 3.5 - 5.3 mmol/L LAB CHEMISTRY METHOD 04/01/2024 7:50 AM [facility] Chloride 106 98 - 107 mmol/L LAB CHEMISTRY METHOD 04/01/2024 7:50 AM [facility] Bicarbonate 26 21 - 32 mmol/L LAB CHEMISTRY METHOD 04/01/2024 7:50 AM [facility] Anion Gap 10 10 - 20 mmol/L LAB CHEMISTRY METHOD 04/01/2024 7:50 AM [facility] Urea Nitrogen 34(H) 6 - 23 mg/dL LAB CHEMISTRY METHOD 04/01/2024 7:50 AM [facility] Creatinine 0.91 0.50 - 1.05 mg/dL LAB CHEMISTRY METHOD 04/01/2024 7:50 AM [facility] eGFR 62 >60 mL/min/1. 73m*2 LAB CHEMISTRY METHOD 04/01/2024 7:50 AM [facility] Comment: Calculations of estimated GFR are performed using the 2020 CKD-EPI Study Refit equation without the race variable for the IDMS-Traceable creatinine methods. https://jasn.asnjournals.org/content//ASN.7015189723 Calcium 7.7(L) 8.6 - 10.3 mg/dL LAB CHEMISTRY METHOD 04/01/2024 7:50 AM [facility] Phosphorus 2.4(L) 2.5 - 4.9 mg/dL LAB CHEMISTRY METHOD 04/01/2024 7:50 AM [facility] Comment:The performance marin acteristics of phosphorus testing in heparinized plasma have been validated by the individual laboratory site where testing is performed. Testing on heparinized plasma is not approved by the FDA; however, such approval is not necessary. Albumin 3.6 3.4 - 5.0 g/dL LAB CHEMISTRY METHOD 04/01/2024 7:50 AM EDT [facility] Blood Venous blood specimen / Unknown Venipuncture / Unknown 04/01/2024 7:16 AM EDT 04/01/2024 7:20 AM EDT us David Thorpe DO LAB BLOOD ORDERABLES Final R esult [facility] [address] [place] [address] * Esophagogastroduodenoscopy (EGD) w Dilation TTS (03/31/2024 [...] Julio MD MPH 03/31/2024 0831 Procedure Location [address] [address] Referring Provider Rock Burciaga MD Procedure Provider Isis Julio MD MPH Rock Burciaga MD ENDOSCOPY PROCEDURE ORDERABLES Final Result from Last 3 Months or Most Recently Relevant to Health Maintenance Insurance [address] [place] [address] MEDICARE PART A AND B [facility] [address] [place] [address] MEDICARE PART A AND B Member Subscriber Plan / Payer (Ef fective 2004-Present) Name:Nahomy Fried Member ID:[id number] Relation to Subscriber:Self Name:Nahomy Fried Subscriber ID:[id number] Payer ID:Not on file Group ID:Not on file Type:Not on file Address: [place] [id number] [facility] Advance Directives For more information, please contact: [phone] (Available ) * Full Code (Latest Code Status on File) Date Activated Date Inactivated Comments 03/28/2024 6:04 PM Question Answer Comments Plan of Care: Code Status Discussion Completed Decision Maker: Patient Care Teams Armature Winder Repair Relationship Specialty Start Date End Date Douglas Will MD [address] [place] [address] PCP - General Family Medicine 03/03/25
--- OUTSIDE RECORDS SUMMARY | 2025-05-30 13:44 | XMS_ITS | Encounter Summary ---
Author Organization [facility] Address [address] [place] [address] Care Team Providers Care Machine Setter Name Role Phone Douglas Will MD Primary Care Provider Ke Marte MA Unavailable [phone] Encounter Details Date Type Department Care Team (Late st Contact Info) Description 04/03/2025 Results Follow-Up [facility] [address] [place] [address] Douglas Will MD [address] [place] [address] CBC auto differential, Basic metabolic panel Social [...] often do you attend chur ch or moravian services? Never 01/20/2025 Do you belong to any clubs o r organizations such as uatsdin groups, unions, fraternal or athletic groups, or [...] Recorded Patient Health Questionnaire-2 Score 0 12/07/2024 [facility] - Occupational Stress Questionnaire Answer Date Recorded [...] any time in the past 12 m ont, were you homeless or living in a [...] 11:00 AM EDT Office Visit [facility] [address] [place] [address] Susie Quintero, DO [address] [place] [address] documented as of this encounter Visit Diagnoses Not on filedocumented in this encounter Additional Health Concerns Assessment Noted Time PHQ-9 Depression Total Score: 6 12/08/19 25 1:00 PM EDT documented as of this encounter Care Teams Machine Setter Relationship Specialty Start Date End Date Douglas Will MD PCP - General Family Medicine 12/16/23 Ke Marte, BEBE [address] [place] [address] Family Medicine 01/20/25 04/11/25 documented as of this encounter
--- OUTSIDE RECORDS SUMMARY | 2025-05-30 13:45 | XMS_ITS | Clinical Summary ---
Author Organization [facility] Address [address] [facility] [place] [address] Care Team Providers Care Valver Name Role Phone Douglas Will MD Primary Care Provider [phone] Allergies Active Allergy Reactions Criticality Noted Date Comments Acetaminophen-Codein e Other,GI intolerance,Nausea Only,Unknown Medium 03/31/2011 Other reaction(s): Abdominal Pain [place] Itching,Other,Unknow n ,Rash High 03/01/2014 welts Other [...] 02/14/2020 Gold GI intolerance Low 12/05/2016 itching [place] Nickel welts Gold-Containing Drug Products GI intolerance,Itching,O ther,Rash,Unknown High 03/01/2014 itching Other reaction(s): Intolerance itching Other reaction(s): Welts itching [place]ina Nickel welts Other reaction(s): Welts Other reaction(s): [...] atorvastatin (Lipitor) 40 MG tabletIndications:CA D in [place] artery Take 1 tablet (40 mg) by [...] and follow with vascular. Severe protein-calorie malnutrition ([facility]-HCC) Assessment & Plan (04/06/2025 12:34 PM EDT): [...] osteoarthritis of both knees 12/16/2023 CAD in [place] artery 12/16/2023 Assessment & Plan (04/06/2025 12:33 [...] 8:45 AM EDT Office Visit [facility] [address] [address] Susie Quintero DO Chronic obstructive pulmonary disease, unspecified COPD type (HCC); COPD, mild (HCC) 05/03/2025 Bamboo flowsheet [facility] [address] [place] [address] Susie Quintero DO 04/07/2025 Patient Outreach [facility] [address] [facility] [place] [address] Ke Marte MA 04/07/2025 Patient Outreach [facility] [address] [facility] [address] Ke Marte MA 04/07/2025 Telephone [facility] [address] [place] [address] Douglas Will MD 04/06/2025 11:30 AM EDT Office Visit [facility] [address] [place] [address] Douglas Will MD CAD in [place] artery (Primary Dx); Lumbar spondylosis; Iron 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 dietary iron intake; Chronic heart failure with preserved ejection fraction (HFpEF) (HCC); Severe protein-calorie malnutrition ([facility]-HCC); SOB (shortness of breath) 04/06/2025 Bamboo flowsheet [facility] [address] [place] [address] Douglas Will MD 04/03/2025 Results [facility] [address] [place] [address] Douglas Will MD CBC auto differential, Basic metabolic panel 03/31/2025 External Result Encounter [facility] External Department Unsolicited Douglas Will MD 03/28/2025 Patient Outreach [facility] [address] [place] [address] Patience Arana RN 03/22/2025 Clinisync Result Encounter [facility] External Department Unsolicited Provider, Generic External Data 03/21/2025 Orders Only [facility] [address] [place] [phone] Douglas Will MD 03/10/2025 Telephone [facility] [address] [place] [address] Douglas Will MD 03/08/2025 10:30 AM EDT Consult [facility] [address] [place] [address] Susie Quintero, DO Chronic obstructive pulmonary disease, unspecified COPD type (HCC); SOB (shortness of breath) 03/08/2025 Bamboo flowsheet [facility] [address] [place] [address] Susie Quintero DO 03/06/2025 Bamboo flowsheet [facility] [address] [place] [address] Lurdes Toney PA 03/06/2025 Travel 03/03/2025 Refill [facility] [address] [place] [place] [address] Douglas Will MD COPD, mild (HCC) from Last 3 Months Immunizations Immunization Administration [...] often do you attend chur ch or druze services? Never 01/20/2025 Do you belong to any clubs o r organizations such as scientology groups, unions, fraternal or athletic groups, or [...] Recorded Patient Health Questionnaire-2 Score 0 12/07/2024 [facility] - [...] any time in the past [address] [facility], were you homeless or living in a senior living (including now)? No 01/20/2025 Comments Unknown Sex [...] AM EDT Office Visit [facility] [address] [place] [address] Susie Quintero, [address] [place] [address] Health Maintenance Due Date Last Done Comments Influenza Vaccine (#1) 2025 , 05/02/2023, 04/15/2022, Additional history exists Pneumococcal Vaccine: 65+ Years Completed 05/02/2023, 11/27/2016, 06/21/2015, Additional history exists Procedures Procedure Name Priority Date/Time Associated Diagnosis Comments BASIC METABOLIC PANEL Routine 03/31/2025 11:00 AM EDT CBC WITH AUTO DIFFERENTIAL Routine 03/31/2025 11:00 AM EDT MHPT CULT,URINE Routine 03/22/2025 5:05 AM EDT XR TIB/FIB LEFT 2 VIEW Routine 03/21/2025 1:17 PM EDT from Last 3 Months Results [...] TYPE AUTOMATED DIFFERENTIAL [facility] Comment: PERFORMED AT [address] [place] [address] 03/31/2025 11:0 0 AM EDT 03/31/2025 12:50 PM EDT Douglas Will MD LAB BLOOD ORDERABLES Final Resul t Performing Organization Address [facility]/ZIP Co de Phone Number [facility] * (ABNORMAL) Basic metabolic panel (03/31/2025 [...] not use a race coefficient. PERFORMED AT [address] [place] [address] 03/31/2025 11:0 0 AM EDT 03/31/2025 12:50 PM EDT Douglas Will MD LAB BLOOD ORDERABLES Final Resul t Performing Organization Address City/[facility]/ZIP Co de Phone Number [facility] * (ABNORMAL) MHPT CULT,URINE (03/22/2025 5:05 AM EDT) MHPT CULT,URINE Specimen Description .CLEAN CATCH URINE [...] AM EDT Original Ordering Provider: SHARDA NICKERSON us Generic External Data Provider [facility] F inal Result [facility] * XR TIB/FIB LEFT 2 VIEW (03/21/2025 1:17 PM EDT) Anatomical Region Laterality Modality Radiographic Josefina ging us Douglas Will MD IMG XR PROCEDURES Final Result from Last 3 Months Insurance MEDICARE Member Subscriber Plan / Payer (Ef fective 2004-Present) Name:Nahomy Fried Member ID:[id number] Relation to Subscriber:Self Name:Nahomy Fried Subscriber ID:[id number] Payer ID:STATE Group ID:Not on file Type:Medicare Address: [place] [id number] [facility] [place] [address] Care Teams Valver Relationship Specialty Start Date End Date Douglas Will MD PCP - General Family Medicine 12/16/23
--- OUTSIDE RECORDS SUMMARY | 2025-05-30 13:45 | XMS_ITS | Encounter Summary ---
Author Organization [facility] Address [address] [place] [address] Care Team Providers Care Tool Crib Manager Name Role Phone Douglas Will MD Primary Care Provider [phone] Ke Marte MA Unavailable [phone] Encounter Details Date Type Department Care Team (Late st Contact Info) Description 12/09/2024 Results Follow-Up [facility] [address] [place] [address] Douglas Will MD [address] [place] [address] D-dimer, quantitative, CBC auto differential, Hemoglobin A1c, [...] EDT Office Visit [facility] [address] [place] [address] Susie Quintero, DO [address] [place] [address] documented as of this encounter Visit Diagnoses Not on filedocumented in this encounter Additional Health Concerns Assessment Noted Time PHQ-9 Depression Total Score: 6 12/08/19 25 1:00 PM EDT documented as of this encounter Care Teams Tool Crib Manager Relationship Specialty Start Date End Date Douglas Will MD PCP - General Family Medicine 12/16/23 Ke Marte MA [address] [place] [address] Family Medicine 01/20/25 04/11/25 documented as of this encounter
--- OUTSIDE RECORDS SUMMARY | 2025-05-30 13:45 | XMS_ITS | Encounter Summary ---
Author Organization [facility] Address [address] [place] [address] Care Team Providers Care Ink Grinder Name Role Phone Douglas Will MD Primary Care Provider [phone] Ke Marte MA Unavailable [phone] Encounter Details Date Type Department Care Team (Late st Contact Info) Description 12/09/2024 Orders Only [facility] [place] [facility] [address] [place] [facility] [place] [address] Jessica Bazan MD [address] [address] Social History Tobacco Use Types Packs/Day Years [...] Visit [facility] [address] [place] [address] Susie Quintero, DO [address] [place] [address] documented as of this encounter [...] documented as of this encounter Care Teams Ink Grinder Relationship Specialty Start Date End Date Douglas Will MD PCP - General Family Medicine 12/16/23 Ke Marte MA [address] [place] [address] Family Medicine 01/20/25 04/11/25 documented as of this encounter
--- OUTSIDE RECORDS SUMMARY | 2025-05-30 13:45 | XMS_ITS | Patient Health Record ---
Author Organization [facility] Address [address] [place] [address] Care Team Providers Care Research Methodologist Name Role Phone rosita singh Primary Care Provider JARED PETERS Unavailable [phone] AMEYA BENITEZ Unavailable [phone] Allergies Allergen (clinical drug ingredient) Drug/Non Drug [...] Status Risk Notes Problem Atherosclerosis of aorta (77956605) Atherosclerosis of aorta (I70.0) Active confirmed Problem Thrombophilia (015600146) Other thrombophilia (D68.69) Active confirmed Pt taking anticoagulant due AF and Pulmonary Embolism Problem Hyperlipidemia (09693591) Other hyperlipidemia (E78.4) Active confirmed Problem Hyperlipidemia (28874371) Hyperlipidemia, unspecified (E78.5) Active confirmed Problem Restless legs syndrome (79080878) Restless legs syndrome (G25.81) Active confirmed Problem Atherosclerotic heart disease of [place] coronary artery without angina pectoris (738838594932769 ) Atherosclerotic heart disease of [place] coronary artery without angina pectoris (I25.10) Active confirmed Problem Spinal enthesopathy (04521733) Spinal enthesopathy, 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) Active confirmed Ligamentum flavum hypertrophy L3-L4 /// 08/21/2021 CT Lumbar Spine Problem Overactive bladder (193295876) Overactive bladder (N32.81) Active confirmed Problem Long-term 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 (150590815) care home (current) 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s (Z79.01) Active confirmed Problem History of thromboembolism of vein (804347988) Personal history of other venous thrombosis and embolism (Z86.718) Active confirmed Problem Hypothyroidism (36325310) Hypothyroidism, unspecified (E03.9) Active confirmed Problem Essential hypertension (74375065) Essential (primary) hypertension (I10) Active confirmed Problem Hypertensive heart failure (01374350) Hypertensive heart disease with heart failure (I11.0) Active confirmed Associated with HF---Continue on Clopidogrel Bisulfate 75 MG Problem Chronic obstructive pulmonary disease (12281759) Chronic obstructive pulmonary disease, unspecified (J44.9) Active confirmed 02/27/2023 Cardiology notes--Taking Daliresp Problem Sick sinus syndrome (24068755) Sick sinus syndrome (I49.5) Active confirmed 02/27/2023 Cardiology notes--S/P PPM (permanent pacemaker) implanted in 2017 Problem Insomnia (856572479) Insomnia, unspecified type (G47.00) Active confirmed Problem Pulmonary Embolism (76482236) Other pulmonary embolism without acute cor pulmonale, unspecified chronicity (I26.99) Active confirmed 02/27/2023 Cardiology note page 1/ patent stent in LAD, on Coumadin Problem Non-smoker (8450865) Non-smoker (Z78.9) Active confirmed Problem Diastolic heart failure (490117678) Diastolic congestive heart failure, unspecified HF chronicity (I50.30) Active confirmed Diastolic dysfunction-Gl obal EF 45-50%, E to A ratio reversal in ECHO 09/2021--- 11/10/2022 [facility] notes Problem Chronic atrial fibrillation (disorder) (581931437) Chronic atrial fibrillation, unspecified (I48.20) Active confirmed Pt in anti-platelets therapy --08/19/2017 Dr. Andrade notes--page 3/3 Problem Cardiac pacemaker in situ (223109984) Cardiac pacemaker in situ (Z95.0) Active confirmed Problem Parkinson's disease (disorder) (64286364) Parkinson's disease, unspecified whether dyskinesia present, unspecified whether manifestations fluctuate (G20.A1) Active confirmed Taking Carbidopa-Levo dopa Problem Heart failure (68066698) Congestive heart failure, unspecified congestive heart failure chronicity, unspecified congestive heart failure type (I50.9) Inactive confirmed Problem Parkinsonism (disorder) (31917734) Parkinsonism, unspecified Parkinsonism type (G20.C) Inactive confirmed Taking Carbidopa-Levo dopa Encounters Encounter Location Date Provider Diagnosis [facility] [address] [place] [address] 10/07/2024 AMEYA KHANTIZ Plan Of Treatment Pending Test Test Name Order Date HEMOGLOBIN A1c (496) [facility] 09/24/2023 UA Urinalysis Complete (5463) [facility] 03/2024 Lipid Panel, Standard (7600) [facility] f-Pay 09/24/2023 CBC (includes Differential and Platelets ) (6399) [facility] 09/24/2023 TSH and FREE T4 (22761) [facility] 09/24/2023 CT: Lumbar Spine WIthout Contrast 2021 COMPREHENSIVE METABOLIC PANEL (28485) [facility] EST 09/24/2023 INR 08/02/2018 INR 07/22/2019 INR 09/11/2016 INR 08/05/2013 Prothrombin Time/INR (PT) 0137-0 020 Chest X-ray PA and lateral 07/22/2011 CBC (INCLUDES DIFF/PLT) 07/30/2017 COMPREHENSIVE METABOLIC PANEL 10/27/2017 HEMOGLOBIN A1c 10/27/2017 CBC (INCLUDES DIFF/PLT) 10/27/2017 LIPID PANEL WITH DIRECT LDL 10/27/2017 Future Test Test Name Order Date Chest X-ray PA and lateral 07/22/2017 Vitamin D, 25-Hydroxy, Total, Immunoassa y (21271) - [facility] 09/23/2021 ESR Sed Rate by Modified Westergren (809 ) [facility] 09/23/2021 CBC (H/H, RBC, Indices, WBC, Plt) (1759) [facility] 09/23/2021 TSH and FREE T4 (67896) [facility] 09/23/2021 COMPREHENSIVE METABOLIC PANEL (57854) [facility] 09/23/2021 LIPID PANEL W/REFLEX TO DIRECT LDL (1485 2) [facility] 09/23/2021 Next Appt Details Provider Name:AMEYA BENITEZ, 06/12/2025 10:45:00 AM, [address], [place], [address], Insurance Providers Payer Name Payer Address Payer Phone Subscriber Number Group Number Insured Name Patient Relationship to Insured Coverage Start Date Coverage End Date Medicare - [facility] [address] [address] [place] [address] [phone] [id number] Nahomy Fried Jacob Self - patient is the insured [address] [id number] [phone] [id number] Nahomy Fried Jacob Self - patient is [...] knee revision 2015 Right knee infection - alf antibio tics 05/2018 Pacemaker replaced 02/2020
--- OUTSIDE RECORDS SUMMARY | 2025-05-30 14:03 | XMS_ITS | CCD ---
Author Organization [facility] CliniSyvt Care Team Providers Care Freight Service Inspector Name Role Phone REYNOLD GUNN S Unavailable Unavailable DARRYL, EPI F Unavailable Unavailable BRUHL, TONI Unavailable Unavailable BRUHL, TONI Unavailable Unavailable DARRYL, EPI F Unavailable Unavailable VIGESAA, REYNOLD S Unavailable Unavailable DARRYL, EPI F Unavailable Unavailable VIGESAA, REYNOLD S Unavailable Unavailable DARRYL, EPI F Unavailable Unavailable VIGESAA, REYNOLD S Unavailable Unavailable DARRYL, EPI F Unavailable Unavailable Darryl, Epi F Primary Care Provider [phone] Darryl, Epi F Primary Care Provider [phone] Darryl, Epi F Primary Care Provider [phone] RADHA, NOAH Admitting Unavailable RADHA, NOAH Attending Unavailable DARRYL, EPI Referring Unavailable DARRYL, EPI Primary Care Unavailable DARRYL, EPI Primary Care Unavailable SELF, REFERRED Referring Unavailable ANGELIQUE, ALL Attending Unavailable ANGELIQUE, ALL Admitting Unavailable [place], Epi F Primary Care Provider [phone] Darryl, Epi F Primary Care Provider [phone] Darryl, Epi F Unavailable [phone] Unavailable Unavailable Unavailable Unavailable MD Douglas Will Primary Care Provider [phone] MD Douglas Will Attending Provider Mary Rucker MD Unavailable Douglas Will Primary Care Provider [phone] DOUGLAS WILL Primary Care Physician [phone] MD Douglas Will Primary Care Provider MD Isauro Archuleta Attending Provider [phone] NADИРИНАR, DR DOUGLAS James Attending Unavailable WEST, DR RENAN Wallace Consulting Unavailable NADERER, DR DOUGLAS James Primary Care Unavailable NADERER, DR DOUGLAS James Admitting Unavailable NADERER, DR DOUGLAS James Consulting Unavailable NADERER, DR DOUGLAS James Primary Care Unavailable NADERER, DR DOUGLAS James Admitting Unavailable NADERER, DR DOUGLAS James Attending Unavailable NADERER, DR DOUGLAS James Consulting Unavailable NADERER, DR DOUGLAS James Primary Care Unavailable NADERER, DR DOUGLAS James Admitting Unavailable NADERER, DR DOUGLAS James Attending Unavailable Douglas Will MD Primary Care Provider Mary Rucker MD Unavailable Douglas Will Primary Care Provider Emma Blackman MD Unavailable Toni Moore Unavailable [phone] Douglas Will Primary Care Provider Douglas Will Primary Care Provider Douglas Will MD Primary Care Provider DOUGLAS WILL Primary Care Unavailable COOPER STEPHENS Referring Unavailable NADERER, DOUGLAS James Primary Care Unavailable ANA MARIA AMATO Referring Unavailable NADEREMaddi, DOUGLAS James Primary Care Unavailable NADERER, DOUGLAS James Primary Care Unavailable INESSA FRENCH Admitting Unavailable INESSA FRENCH Attending Unavailable DOUGLAS WILL Primary Care Unavailable ANA MARIA AMATO Referring Unavailable Mary Rucker MD Unavailable Douglas Will Primary Care Provider Emma Blackman MD Unavailable [phone] Toni Moore Unavailable Douglas Will MD Primary Care Provider Douglas Will MD Primary Care Provider Douglas Will MD Primary Care Provider MD Douglas Will Primary Care Provider OLIVER Reeves Emergency Provider Sky Reeves Attending Unavailable Sky Reeves Admitting Unavailable Naderer, Douglas Primary Care Unavailable Inessa Navas Unavailable [phone] Epi Andrews Primary Care Provider Milton CLARK, Mary Meyer Unavailable Lou Lacy Attending Unavailable Isauro ARCHULETA Attending Unavailable Isauro ARCHULETA Attending Unavailable Lou Lacy Attending Unavailable GARLANDERERDOUGLAS Primary Care Unavailable NGUYỄN JEAN Referring Unavailable NGUYỄN JEAN Attending Unavailable COOPER STEPHENS Referring Unavailable NADERER, DOUGLAS A Primary Care Unavailable PROVIDER, UNKNOWN Attending Unavailable PROVIDER, UNKNOWN Admitting Unavailable EMMA ZABALA Attending Unavailable DOUGLAS WILL Referring Unavailable GARLANDEREMaddi, DOUGLAS Primary Care Unavailable RHODA HIGGINS Attending Unavailable NADEREMaddi, DOUGLAS Referring Unavailable NADERER, DOUGLAS Primary Care Unavailable EPI ANDREWS Primary Care Unavailabl e ROCK ALANIS Consulting Unavailable Hamlet'GEETADONNIE NIEVES Attending Unavailable Hamlet'DONNIE CONNOR Admitting Unavailable KHAITAN, NOLAN Consulting Unavailable Naderer, Douglas A Primary Care Provider [phone] Vj CLARK, Emma Padilla Unavailable Yoli CLARK, Toni Alicea Unavailable Douglas Will MD Primary Care Provider [phone] Darryl CLARK, Epi Veloz Primary Care Provider Douglas Will MD Primary Care Provider Douglas Will MD Primary Care Provider [phone] Douglas Will MD Primary Care Provider [phone] ANDERSON, DOUGLAS Primary Care Unavailable CAPRI MATTHEWS Attending Unavailable NADERER, DOUGLAS Referring Unavailable NADERER, DOUGLAS Primary Care Unavailable CAPRI MATTHEWS Attending Unavailable GARLANDERER, DOUGLAS Referring Unavailable NADERER, DOUGLAS Primary Care Unavailable RHODA HIGGINS Attending Unavailable NADERER, DOUGLAS Referring Unavailable NADERER, DOUGLAS Primary Care Unavailable BRIGHT GUERRIER Attending Unavailable NADERER, DOUGLAS Referring Unavailable NADERER, DOUGLAS Primary Care Unavailable NADERER, DOUGLAS Referring Unavailable NADERER, DOUGLAS Primary Care Unavailable NATALY BREWER Attending Unavailable NADERER, DOUGLAS Referring Unavailable NADERER, DOUGLAS Primary Care Unavailable JOSETTE ROY Attending Unavailable Estuardo SPENCE, Ke Unavailable Unavailable ROBBIE COATS Referring Unavailable NADERER, DOUGLAS BYRD Primary Care Unavailjaspreet Andrews MD, Epi Veloz Primary Care Provider Ke Marte MA Unavailable AMBER, NOLAN Attending Unavailable EPI ANDREWS Primary Care Unavailabl randy JULIO, NOLAN Attending Unavailable DONNIE THORPE Referring Unavailable EPI ANDREWS Primary Care Unavailabl e AMEBR, NOLAN Attending Unavailable EPI ANDREWS Primary Care Unavailabl e GARLANDERER, DOUGLAS Primary Care Unavailable CAPRI MATTHEWS Referring Unavailable NADERER, DOUGLAS Primary Care Unavailable RONALDO MOHAMED F Referring Unavailable RONALDO, MOHAMED F Attending Unavailable NADERER, DOUGLAS Referring Unavailable NADERER, DOUGLAS Primary Care Unavailable NADERER, DOUGLAS Primary Care Unavailable STACEY BAZAN Referring Unavailable STACEY BAZAN Attending Unavailable NADERER, DOUGLAS Referring Unavailable NADERER, DOUGLAS Primary Care Unavailable NADERER, DOUGLAS Primary Care Unavailable TONI HANNON Attending Unavailable NADERER, DOUGLAS Primary Care Unavailable TONI HANNON Attending Unavailable NADERER, DOUGLAS Primary Care Unavailable ONLY), [facility] (INPATIENT Consult ing Unavailable TIMBO, ABEBE U Admitting Unavailable TIMBO, ABEBE U Attending Unavailable CARDIOLOGY, [facility] Consulting Unavailable NADERER, DOUGLAS Primary Care Unavailable FAUSTO RAIN Referring Unavailable NADERER, DOUGLAS Primary Care Unavailable NADERER, DOUGLAS Referring Unavailable Nadиринаr , Douglas Primary Care Provider CINDY BERNAL Attending Unavailable NADERER, DOUGLAS Attending Unavailable NADERER, DOUGLAS Attending Unavailable NADERER, DOUGLAS Attending Unavailable NADERER, DOUGLAS Attending Unavailable NADERER, DOUGLAS Attending Unavailable LURDES TONEY Attending Unavailable LURDES TONEY Attending Unavailable REYNA BRAVO Attending Unavailable REYNA BRAVO Referring Unavailable TIMOTHY PENN Attending Unavailable ANDERSON, DOUGLAS Referring Unavailable ANDERSON, DOUGLAS Attending Unavailable TIMOTHY EPNN Attending Unavailable KENDRA HERRERA Attending Unavailab le KENDRA HERRERA Admitting Unavailab le ANDERSON, DOUGLAS MUNCY Primary Care Unavailabl e Douglas Will MD Primary Care Provider [phone] Atilio Wade MD Attending Provider [phone] Douglas Will MD Attending Provider NADERER, [facility] Primary Care Unavailabl e MURIEL DEAL Referring Unavailable AYOUBI, MOHRADHA Referring Unavailable NADERER, [facility] Unavailabl e AYOUBI, MOHAMED Referring Unavailable NADERER, [facility] Unavailabl e AYOUBI, MOHAMED Referring Unavailable NADERER, [facility] Unavailabl e NADERER, [facility] Unavailabl e BRUTONI RAIN Referring Unavailable NADERER, [facility] Unavailabl e BRUTONI RAIN Referring Unavailable NADERER, [facility] Unavailabl e BRUTONI RAIN Referring Unavailable NADERER, [facility] Unavailabl e BRUTONI RAIN Referring Unavailable AYOUBI, MOHAMED Referring Unavailable NADERER, [facility] Unavailabl e AYOUBI, GRISELDAAMED Referring Unavailable NADERER, [facility] Unavailabl e NADERER, [facility] Unavailabl e SKIBICKIASHISH Attending Unavailable NADERER, [facility] Unavailabl e AYOUBI, MOHAMED Consulting Unavailable LARISA REARDON Admitting Unavailable LARISA REARDON Attending Unavailable KOREY ALANIS Consulting Unavailable TONI MOORE Consulting Unavailable NADERER, [facility] Unavailabl e BRUTONI RAIN Referring Unavailable Allergies Allergy Classification Reported Allergen(s) Allergy Type Date of Onset Reaction(s) Facility Acetaminophen / Codeine (8 sources) Acetaminophen / Codeine Drug Allergy 02-26-20 12 Nausea Only [facility] Holiday (5 sources) Holiday; Translations: [COBALT] Drug Allergy 12-06-19 17 [facility] cobalt gluconate (4 sources) cobalt gluconate Drug Allergy 03-01-20 14 Rash [facility] Droxidopa (5 sources) Droxidopa; Translations: [DROXIDOPA] Drug Allergy 02-14-20 20 Shortness Of Breath [facility] Gold (9 sources) Gold; Translations: [GOLD AU 198] Drug Allergy 12-06-19 17 [facility] Latex (9 sources) Latex; Translations: [LATEX] Substance Allergy 05-31-20 12 [facility] Work Phone: nickel (5 sources) nickel; Translations: [NICKEL] Drug Allergy 12-06-19 17 [facility] nickel sulfate (4 sources) nickel sulfate Drug Allergy 03-01-20 14 Hives [facility] Opioid Agonists (1 source) Codeine; Translations: [CODEINE] Drug Allergy 04-08-20 18 [facility] Unclassified (20 sources) LEVONORGESTREL-ET HINYL ESTRAD; Translations: [LEVONORGESTREL-E THINYL ESTRAD] Propensity to adverse reactions to drug (disorder) 11-19-19 16 Cough, Itching, Runny nose [facility] Unclassified (5 sources) GOLD KERATINATE; Translations: [GOLD KERATINATE] Propensity to adverse reactions to drug (disorder) 12-06-19 17 [facility] (20 sources) Acetaminophen / Codeine; Translations: [ACETAMINOPHEN-CO DEINE] Drug Allergy 03-31-20 11 Nausea Only, Unknown, GI Upset, Other, GI intolerance [place] (20 sources) Holiday; Translations: [COBALT] Drug Allergy 03-01-20 14 Rash, Itching, Other, Unknown [place] (20 sources) Gold Drug Allergy 12-06-19 17 Unknown, Itching, Other, Rash, GI intolerance [place] (20 sources) Latex; Translations: [LATEX] Propensity to adverse reactions to drug 05-31-20 12 Rash, Unknown (qualifier value), Itching, Other [place] (20 sources) nickel sulfate; Translations: [NICKEL] Drug Allergy 03-01-20 14 Hives, Unknown (qualifier value), Itching, Other, Unknown, Rash [place] (20 sources) Seasonal allergy Propensity to adverse reactions to substance 11-19-19 16 [place] (20 sources) Gold-Containing Drug Products Propensity to adverse reactions to drug 03-01-20 14 Rash [place] (20 sources) Droxidopa; Translations: [DROXIDOPA] Drug Allergy 02-14-20 20 Shortness Of Breath [place] (3 sources) Aurothiomalate; Translations: [GOLD SODIUM THIOMALATE (BULK)] Drug Allergy 02-24-20 14 [facility] Repository (1 source) Holiday Drug Allergy 02-24-20 14 [facility] Repository (2 sources) Latex Drug allergy (disorder) 03-17-20 11 [facility] Repository (2 sources) Leucine Drug Allergy 02-01-20 13 [facility] Repository (1 source) Tylenol-Codeine #3 Drug allergy (disorder) 03-31-20 11 [facility] Repository (7 sources) natural latex rubber Allergy to substance (finding) [facility] Work Phone: (7 sources) nickel Drug Allergy [facility] Work Phone: (20 sources) Codeine; Translations: [Codeine Derivatives] Drug Allergy 04-08-20 18 GI intolerance, Nausea Only, Other, Unknown, Nausea [facility] Work Phone: (5 sources) Latex Gloves MISC; Translations: [Latex Gloves MISC] Allergy to drug (finding) [facility] Work Phone: (20 sources) Holiday Drug Allergy 03-01-20 14 Other: See Comments, Itching, Other, Unknown, Rash [facility] (20 sources) Gold; Translations: [GOLD AU 198] Drug Allergy 07-20-20 14 Intolerance, Unknown, Itching, Other, Rash [facility] (20 sources) nickel Drug Allergy 03-01-20 14 Other: See Comments, Hives, Itching, Other, Rash [facility] (20 sources) Seasonal allergy; Translations: [SEASONAL ALLERGIES] Allergy to substance 11-19-19 16 Other: See Comments [facility] (7 sources) gold containing compounds; Translations: [gold containing compounds] Drug allergy Unknown (qualifier value) [facility] Joann (1 source) juniper tar Drug Allergy [facility] Repository (1 source) Holiday Drug Allergy 04-20-20 [facility] Repository (1 source) Latex Drug allergy (disorder) 04-20-20 [facility] Repository (1 source) nickel Drug Allergy 04-20-20 [facility] Repository (1 source) Acetaminophen / Codeine Drug Allergy Unknown [facility] [employer] Other (1 source) Gold Drug Allergy Unknown [facility] [employer] Other (7 sources) Codeine; Translations: [CODEINE] Drug Allergy 04-08-20 18 Unknown Reaction [facility] Repository (20 sources) OTHER; Translations: [OTHER] Propensity to adverse reactions (disorder) 11-19-19 16 Other, Other (See Comments) [facility] Repository (20 sources) Latex Propensity to adverse reactions 05-31-20 12 Rash [facility] (5 sources) Aurothiomalate Drug Allergy 08-04-20 14 Itching, Other, Rash [facility] Work Phone: (3 sources) Acetaminophen Drug Allergy 06-11-20 23 Unknown Reaction [facility] (20 sources) Droxidopa Allergy to substance 02-14-20 20 Shortness of breath [facility] (20 sources) Gold-Containing Drug Products Drug Allergy 03-01-20 14 GI intolerance, Itching, Other, Rash, Unknown [facility] (8 sources) Environmental/Sea ryley Propensity to adverse reactions to substance 11-19-19 16 [facility] Medications Current Medications Medication Drug Class(es) Dates Sig (Normalized) Sig (Original) Acetaminophen (20 sources) Start: 03-21-2025 acetaminophen (TYLENOL) tablet 650 mg Start: 03-20-2025 End: 03-20-2025 take 4000 mg by mouth every twenty-four hours 1,000 mg, Oral, ONCE, 1 dose, On Thu03/20/25 at 1530, Maximum dose of acetaminophen is 4000 mg from all sources in 24 hours. Start: 03-28-2024 take 1 tablet by rhoda th every four hours as needed acetaminophen (Tylenol) tablet 650 mg Start: 05-06-2022 take 2 tablets by mo [facility] three times daily acetaminophen (Tylenol) 500 mg tablet Take 2 tablets (1,000 mg) by mouth 3 times a day. 05/06/2022 Active Start: 05-06-2022 take 2 tablets by mo [facility] every eight hours acetaminophen (TYLENOL) 500 mg tablet Take 2 tablets by mouth every 8 hours. 60 tablet 05/06/2022 Active Start: 04-02-2022 acetaminophen (TYLENOL) tablet 650 mg Start: 04-03-2020 acetaminophen (TYLENOL) tablet 650 mg Comment on above: Take 2 tablets by mo [facility] every 8 hours. acetaminophen 325 mg / oxyCODONE hydrochloride 5 mg oral tablet (3 sources) Opioid Agonist Start: 04-06-2025 End: 04-13-2025 take 1 tablet by mouth four times daily as needed for pain oxyCODONE-acetaminop hen (Percocet) 5-325 MG tablet Indications: Lumbar spondylosis Take 1 tablet by mouth 4 (four) times a day as needed for severe pain or moderate pain for up to 7 days 28 tablet 04/06/2025 04/13/2025 Active [id number] 200 actuat albuterol 0.09 mg/actuat metered dose inhaler (20 sources) beta2-Adrenergic Agonist Start: 05-10-2025 Albuterol Sulfate (Ventolin Hfa) 90 mcg/actuation HFA aerosol inhaler Active INHALATION May 10, 2025 12:00am Complies with drug therapy Start: 05-03-2025 take 2 puff(s) by in halation every four hours for wheezing albuterol HFA 90 mcg/act inhaler Indications: Chronic obstructive pulmonary disease, unspecified COPD type (HCC) Inhale 2 puffs every 4 (four) hours if needed for shortness of breath or wheezing 18 g 5 05/03/2025 Active Start: 05-03-2025 take 2 puff(s) by in halation every four hours for wheezing albuterol HFA 90 mcg/act inhaler Indications: Chronic obstructive pulmonary disease, unspecified COPD type (HCC) Inhale 2 puffs every 4 (four) hours if needed for shortness of breath or wheezing 18 g 5 05/03/2025 Active Start: 01-04-2025 End: 05-03-2025 take 2 puff(s) by inhalation every four hours for wheezing albuterol HFA 90 mcg/act inhaler Indications: Chronic obstructive pulmonary disease, unspecified COPD type (HCC) Inhale 2 puffs every 4 (four) hours if needed for shortness of breath or wheezing 18 g 2 01/04/2025 05/03/2025 Discontinued (Reorder) Start: 01-04-2025 End: 03-21-2025 take 2 puff(s) by inhalation every four hours as needed for wheezing VENTOLIN HFA 108 (90 Base) MCG/ACT inhaler Inhale 2 puffs into the lungs every 4 hours as needed for Shortness of Breath or Wheezing 01/04/2025 03/21/2025 Discontinued (LIST CLEANUP) Start: 09-28-2019 End: 06-18-2021 albuterol HFA (PROVENTIL HFA , VENTOLIN HFA) 90 mcg/actuation inhaler Start: 04-25-2019 End: 06-27-2019 albuterol (PROVENTIL) (2.5 M G/3ML) 0.083% nebulizer solution Inhale 2.5 mg into the lungs 4 times daily as needed 0 04/25/2019 06/27/2019 Discontinued (Therapy completed) aspirin 81 mg chewable tablet (20 sources) Platelet Aggregation Inhibitor, Nonsteroidal Anti-inflammatory Drug Start: 04-27-2025 take 1 tablet by mouth once daily aspirin 81 MG chewable tablet Take 1 tablet by mouth daily 30 tablet 3 04/27/2025 Active Start: 03-21-2017 End: 04-17-2022 take 1 tablet by mouth once daily aspirin, enteric coated (ECOTRIN LOW STRENGTH) 81 mg EC tablet Take 1 tablet by mouth once daily. 30 tablet 2 06/05/2021 04/17/2022 Discontinued (Discontinued by another Health Care Provider) Comment on above: Take 1 tablet by rhoda th once daily. atorvastatin 40 mg oral tablet (20 sources) HMG-CoA Reductase Inhibitor Start: 12-25-19 End: 12-08-19 take 1 tablet by mouth once daily at bedtime Atorvastatin 40 mg tablet Active 40 MG PO Daily at bedtime November 29, 2024 12:00am Complies with drug therapy atropine sulfate 0.025 mg / diphenoxylate hydrochloride 2.5 mg oral tablet (2 sources) Anticholinergic, Cholinergic Muscarinic Antagonist, Antidiarrheal Start: 04-07-20 24 End: 04-22-20 24 take 1 tablet by mouth four times daily as needed for diarrhea diphenoxylate-atrop ine (Lomotil) 2.5-0.025 MG tablet Indications: Diarrhea, unspecified type Take 1 tablet by mouth 4 (four) times a day as needed for diarrhea for up to 15 days 60 tablet 04/07/2024 04/22/2024 Active azelastine hydrochloride 0.137 mg/actuat metered dose nasal spray (12 sources) Histamine-1 Receptor Antagonist Start: 12-20-19 take 2 spray(s) nasal route twice daily azelastine (Astelin) 137 mcg (0.1 %) nasal spray Administer 2 sprays into each nostril 2 times a day. 12/19/2022 Active Start: 12-19-2022 take 2 spray(s) nasa l route twice daily Azelastine HCl 137 MCG/SPRAY SOLN 2 sprays by Each Nostril route 2 times daily 0 12/19/2022 Active Start: 05-22-2020 End: 06-25-2020 take 2 spray(s) nasal route twice daily Azelastine HCl 137 MCG/SPRAY SOLN 2 sprays by Each Nostril route 2 times daily 0 05/22/2020 06/25/2020 Discontinued (DISCONTINUED BY ANOTHER CLINICIAN) 60 actuat budesonide 0.16 mg/actuat / formoterol fumarate 0.0045 mg/actuat metered dose inhaler (18 sources) Corticosteroid, beta2-Adrenergic Agonist Start: 04-04-2020 take 2 puff(s) by inhalation twice daily 2 puff, Inhalation, 2 TIMES DAILY, First dose on Thu04/04/20 at 0900 Rinse mouth out with water (without swallowing) after every dose. Start: 11-11-2019 Symbicort 160- 4.5 MCG/ACT Inhalation Aerosol Quantity: 10 Refills: 0 Ordered: 11-Nov-2019 DO Start : 11-Nov-2019 Active End: 06-18-2021 take 2 puff(s) by inhalation twice daily budesonide-formoterol (SYMBICORT) 80-4.5 mcg/actuation inhaler Inhale 2 Puffs as instructed twice daily. 0 06/18/2021 Discontinued (Discontinued by another Health Care Provider) take 2 puff(s) by in halation twice daily Symbicort 160-4.5 MCG/ACT 2 puffs Inhalation Twice a day for 90 Days Not-Taking Comment on above: Inhale 2 Puffs as in structed twice daily. calcium carbonate 500 mg chewable tablet (20 sources) Start: 03-28-2024 take 500 mg by mouth twice daily 500 mg, oral, 2 times daily, First dose on 03/28/24 at 2100 Start: 05-06-2022 calcium carbon ate (Tums) 200 mg calcium chewable tablet Chew 1 tablet (500 mg) twice a day. 05/06/2022 Active Start: 06-20-2021 End: 12-08-2022 take 1 tablet by mouth twice daily calcium carbonate (TUMS) 500 mg chew Take 1 tablet by mouth twice daily. 60 tablet 06/20/2021 05/06/2022 Discontinued take 4 tablets by mo uth at bedtime Tums 500 MG Oral Tablet Chewable takes 4-6 chews at bedtime Quantity: 0 Refills: 0 Ordered: 20-Mar-2021 DO Active calcium carbonat e (OS-RICK) 1250 (500 Ca) MG chewable tablet Take 1 tablet by mouth as needed 0 Active Comment on above: Take 1 tablet by rhoda th twice daily. Take 1 tablet by rhoda th. Take 1 tablet by rhoda th twice daily. Do not take while you are taking ciprofloxacin, you may resume use after course of ciprofloxacin is complete calcium chloride 0.0014 meq/ml / potassium chloride 0.004 meq/ml / sodium chloride 0.103 meq/ml / sodium lactate 0.028 meq/ml injectable solution (2 sources) Start: 04-26-2025 IntraVENous, at 125 mL/hr, CONTINUOUS, Starting on Thu04/26/25 at 1045, PACU only Start: 03-31-2024 End: 03-31-2024 take 20 mL intravenously every hour 20 mL/hr, intravenous, Continuous, Starting on Chana 03/31/24 at 0800, Preprocedure ceftaroline fosamil 600 mg injection (2 sources) Start: 06-20-2021 End: 07-10-2021 take 600 mg intravenously every twelve hours TEFLARO 600 MG SOLR Infuse 600 mg intravenously every 12 hours 0 06/20/2021 07/10/2021 Active celecoxib 200 mg oral capsule (20 sources) Nonsteroidal Anti-inflammatory Drug Start: 01-21-2022 CeleBREX 50 MG Oral Capsule Quantity: 0 Refills: 0 Ordered: 21-Jan-2022 DO Start : 21-Jan-2022 Active Start: 09-18-2021 End: 05-19-2025 take 1 capsule by mouth twice daily Celecoxib 200 mg capsule Active 200 MG PO Twice daily May 19, 2025 11:05am Complies with drug therapy Start: 09-18-2021 celecoxib (SANDI EBREX) 200 mg capsule Take 200 mg by mouth. 0 12/18/2021 Active Comment on above: Take 200 mg by mouth . cephalexin 250 mg oral capsule (20 sources) Cephalosporin Antibacterial Start: End: take 1 capsule by mouth every eight hours cephALEXin (KEFLEX) 250 MG capsule Take 1 capsule by mouth every 8 hours for 18 doses 18 capsule 03/24/2025 03/30/2025 Active Start: 03-23-2025 End: 03-30-2025 250 mg, Oral, EVERY 8 HOURS SCHEDULED (3 times per day), 21 doses, First dose on Chana 03/23/25 at 1630, Last dose on Chana 03/30/25 at 0600, Antimicrobial Indications: Urinary Tract Infection, UTI duration of therapy: 7 days Start: 11-29-2024 End: 05-10-2025 take 1 capsule by mouth every eight hours Cephalexin 500 mg capsule Discontinued 500 MG PO Q8H 21 November 29, 2024 12:00am May 10, 2025 1:33pm chlorhexidine gluconate 40 m g/ml medicated liquid soap (8 sources) Start: 12-23-2021 Hibiclens 4% S oap Refill(s) 0 Start Date: 12/23/21 Status: Ordered Start: 11-29-2021 Hibiclens 4 % External Liquid use as a preoperative shower Quantity: 1 Refills: 0 Ordered: 29-Nov-2021 Tasia Child Start : 29-Nov-2021 Active clobetasol propionate 0.0005 mg/mg topical ointment (20 sources) Corticosteroid Start: 05-24-2024 clobetasol (Temovate) 0.05 % ointment Indications: Rash and other nonspecific skin eruption Apply to affected areas, up to twice a day when flared, do not use one the face, groin, or underarms, 30 day supply 60 g 11 05/24/2024 Active cloNIDine hydrochloride 0.2 mg oral tablet (20 sources) Central alpha-2 Adrenergic Agonist Start: 05-23-2025 take 1 tablet by mouth three times daily as needed Clonidine Hcl 0.2 mg tablet Active 0.2 MG PO Three times daily as needed for hypertensive emergency May 23, 2025 4:18pm Take one tablet as needed for systolic BP greater than or equal to 170, up to three times daily Complies with drug therapy Start: 03-21-2025 take 0.2 mg by mouth once 0.2 mg, Oral, ONCE, 1 dose, On Thu03/21/25 at 1715 Start: 09-30-2024 End: 05-23-2025 take 1 tablet by mouth once daily Clonidine Hcl 0.2 mg tablet Discontinued 0.2 MG PO Daily November 29, 2024 12:00am May 23, 2025 4:24pm Start: 09-30-2024 cloNIDine (CAT APRES) 0.2 MG tablet Indications: SOB (shortness of breath) , Dysautonomia orthostatic hypotension syndrome , Dissection of aorta, unspecified portion of aorta ([facility]) , Chest discomfort , Lightheaded , Dizziness , ASHD (arteriosclerotic heart disease) , S/P angioplasty with stent , PAF (paroxysmal atrial fibrillation) ([facility]) , Chronic anticoagulation , Chronic diastolic HF (heart failure), NYHA class 3 ([facility]) , History of DVT (deep vein thrombosis) , Pacemaker , Syncope and collapse , Symptomatic bradycardia , Essential hypertension , Frequent falls , Iron deficiency anemia, unspecified iron deficiency anemia type Take 1 tablet by mouth as needed Take only if blood pressure is over 170 09/30/2024 Active clopidogrel 75 mg oral tablet (20 sources) [id number] Platelet Inhibitor Start: 05-19-2025 take 1 tablet by mouth once daily Clopidogrel 75 mg tablet Active 75 MG PO Daily May 19, 2025 11:06am Complies with drug therapy Start: 04-27-2025 take 75 mg by mouth once daily 75 mg, Oral, DAILY, First dose on Thu04/27/25 at 0900, Until Discontinued, Recovery(Cath) Start: 12-23-2021 clopidogrel 75 mg tablet clopidogrel 75 mg tablet Start Date: 12/23/21 Status: Ordered Start: 12-09-2021 End: 05-19-2025 take 1 tablet by mouth once daily Clopidogrel 75 mg tablet Discontinued 75 MG PO Daily April 20, 2023 12:00am May 19, 2025 11:07am Comment on above: Take 1 tablet by [facility] once daily. diphenhydrAMINE (15 sources) Histamine-1 Receptor Antagonist Start: 04-24-20 End: 10-22-19 diphenhydrAMINE 50 mg injection (BENADRYL) docusate sodium 100 mg oral capsule (13 sources) Start: 05-06-20 take 1 capsule by mouth every twelve hours as needed docusate sodium (COLACE) 100 mg capsule Take 1 capsule by mouth twice daily as needed for constipation. 30 capsule 1 05/06/2022 Active Comment on above: Take 1 capsule by [facility] twice daily as needed for constipation. doxycycline monohydrate 100 mg oral tablet (20 sources) Tetracycline-class Drug Start: 06-11-20 take 1 tablet by mouth every twelve hours Doxycycline Monohydrate 100 MG 1 tablet Orally Twice a day for 10 days May, Active Start: 06-18-2022 take 1 capsule by [facility] at bedtime doxycycline monohydrate (MONODOX) 100 MG capsule Take 100 mg by mouth in the morning and at bedtime 0 06/18/2022 Active Start: 06-04-2021 End: 05-06-2022 doxycycline monohydrate 100 mg tablet Take 1 tablet by mouth twice daily. YOU WILL BEGIN DOXYCYCLINE ONCE YOUR IV ANTIBIOTICS ARE COMPLETED. 180 tablet 4 06/04/2021 05/06/2022 Discontinued Start: 05-21-2020 End: 01-02-2021 Doxycycline Hyclate 100 MG O ral Capsule Quantity: 180 Refills: 0 Ordered: 21-May-2020 DO Start : 21-May-2020 End : 02-Jan-2021 Complete Start: 04-03-2020 100 mg, Oral, 2 TIMES DAILY, First dose on Chana 04/03/22 at 0900, Until Discontinued Antimicrobial Indications: Other Other Abx Indication: right knee infection This medication can interact with tube feedings (TF)- obtain MD order to manage. Recommend holding TF for 1 h before and 2 h after dose. Take 1 h before or 2 h after dairy, calcium, iron, magnesium, aluminum or zinc. Start: 07-29-2018 End: 06-01-2021 take 1 capsule by mouth twice daily doxycycline monohydrate (MONODOX) 100 mg capsule Indications: Infection of prosthetic joint, subsequent encounter , Aftercare for long-term (current) use of antibiotics Take 1 capsule by mouth twice daily. 14 capsule 0 07/29/2018 06/01/2021 Discontinued End: 06-30-2022 take 100 mg by mouth at bedtime DOXYCYCLINE PO Take 10 0 mg by mouth in the morning and at bedtime knee infection 0 06/30/2022 Discontinued (LIST CLEANUP) Comment on above: Take 1 tablet by rhoda twice daily. YOU WILL BEGIN DOXYCYCLINE ONCE YOUR IV ANTIBIOTICS ARE COMPLETED. Take 1 capsule by mo [facility] twice daily. 0.4 ml enoxaparin sodium 100 mg/ml prefilled syringe (20 sources) Low Molecular Weight Heparin Start: 05-07-20 22 inject 0.4 mL by subcutaneous injection once daily enoxaparin (LOVENOX) 40 mg/0.4 mL Inject 0.4 mL subcutaneously once daily. You will continue this along with your coumadin until your INR is therapeutic (2-3). When your INR is therapeutic, stop the lovenox and continue on your coumadin. Please follow up with your PCP or coumadin clinic after discharge to get your INR checked. 4 mL 05/07/2022 Active Start: 05-07-2022 End: 05-15-2022 enoxaparin (LOVENOX) 40 MG/0 .4ML Inject 40 mg into the skin daily 0 05/07/2022 05/15/2022 Start: 11-29-2021 Enoxaparin Sod ium 60 MG/0.6ML Injection Solution Prefilled Syringe 0.54 ML Twice daily on 12/12, 12/13, 12/14, 12/15, and on 12/16 only once in the morning then stop Quantity: 9 Refills: 0 Ordered: 29-Nov-2021 Tasia Child Start : 29-Nov-2021 Active SIG calculated with weight: 54 kg and a target dose of 1 mg/kg/dose Start: 06-21-2021 End: 07-08-2021 enoxaparin (LOVENOX) 30 MG/0 .3ML injection Start: 06-20-2021 End: 04-17-2022 inject 0.3 mL by subcutaneous injection once daily enoxaparin (LOVENOX) 30 mg/0.3 mL injection Inject 0.3 mL subcutaneously once daily. 10 Each 06/20/2021 04/17/2022 Discontinued (Course of therapy completed) Comment on above: Inject 0.3 mL subcut aneously once daily. Inject 0.4 mL subcut aneously once daily. You will continue this along with your coumadin until your INR is therapeutic (2-3). When your INR is therapeutic, stop the lovenox and continue on your coumadin. Please follow up with your PCP or coumadin clinic after discharge to get your INR checked. [id number] 0.3 ml EPINEPHrine 1 mg/ml auto-injector (15 sources) alpha-Adrenergic Agonist, beta-Adrenergic Agonist, Catecholamine Start: End: 3 EPINEPHrine 0.3 mg injection (EPIPEN) famotidine 40 mg oral tablet (20 sources) Histamine-2 Receptor Antagonist Start: take 10 mg by mouth once daily 10 mg, Oral, DAILY, First dose (after last modification) on Thu03/24/25 at 0900, Until Discontinued Start: 03-21-2025 End: 03-24-2025 take 20 mg by mouth once daily 20 mg, Oral, DAILY, Fir st dose on Thu03/21/25 at 1800, Until Discontinued Start: 03-28-2024 take 40 mg by mouth once daily 40 mg, oral, Daily, First dose on Thu03/28/24 at 2030 Start: 07-14-2023 take 1 tablet by rhoda once daily Famotidine 40 mg tablet Active 40 MG PO Daily May 10, 2025 12:00am Complies with drug therapy Start: 07-14-2023 famotidine (Pe pcid) 40 mg tablet 07/14/2023 Active Start: 04-03-2022 famotidine (PE PCID) tablet 20 mg ferrous sulfate 325 mg oral tablet (20 sources) Start: 05-23-2025 take 1 tablet by mouth three times daily Ferrous Sulfate 325 mg (65 mg iron) tablet Active 325 MG PO Three times daily May 23, 2025 12:00am Complies with drug therapy Start: 12-23-2024 ferrous sulfat e (Fe Tabs) 325 (65 Fe) MG EC tablet Indications: Iron 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 dietary iron intake Take 1 tablet (325 mg) by mouth in the morning and 1 tablet (325 mg) at noon and 1 tablet (325 mg) in the evening. Take with meals. Do not crush, chew, or split. 90 tablet 3 12/23/2024 Active fludrocortisone acetate 0.1 mg oral tablet (20 sources) Start: 03-21-2025 take 0.2 mg by mouth once daily 0.2 mg, Oral, DAILY, First dose on Thu03/21/25 at 1800, Until Discontinued Start: 05-11-2024 End: 07-26-2025 take 2 tablets by mouth once daily fludrocortisone (Florinef) 0.1 MG tablet Indications: Orthostatic hypotension Take 2 tablets (0.2 mg) by mouth Daily 180 tablet 3 02/20/2025 Active Start: 10-12-2023 take 3 tablets by mo uth once daily fludrocortisone (FLORINEF) 0.1 MG tablet Indications: ASHD (arteriosclerotic heart disease) , PAF (paroxysmal atrial fibrillation) (HCC) , Dysautonomia orthostatic hypotension syndrome , Chronic diastolic congestive heart failure (HCC) , History of DVT (deep vein thrombosis) , Cardiac pacemaker in situ , S/P angioplasty with stent , Essential hypertension Take 3 tablets by mouth daily 270 tablet 3 10/12/2023 Active Start: 04-20-2023 End: 05-10-2025 take 1 tablet by mouth once daily Fludrocortisone 0.1 mg tablet Active 0.2 MG PO Daily May 10, 2025 1:33pm Complies with drug therapy Start: 04-07-2023 take 3 tablets by mo uth once daily fludrocortisone (FLORINEF) 0.1 MG tablet Indications: ASHD (arteriosclerotic heart disease) , PAF (paroxysmal atrial fibrillation) (HCC) , Dysautonomia orthostatic hypotension syndrome , Chronic diastolic congestive heart failure (HCC) , History of DVT (deep vein thrombosis) , Cardiac pacemaker in situ , S/P angioplasty with stent , Essential hypertension Take 3 tablets by mouth daily 90 tablet 3 04/07/2023 Active Start: 05-22-2020 Fludrocortison e Acetate 0.1 MG Oral Tablet Quantity: 90 Refills: 0 Ordered: 22-May-2020 DO Start : 22-May-2020 Active Start: 04-04-2020 End: 05-15-2022 fludrocortisone (FLORINEF) 0 .1 mg tablet Take by mouth. 05/11/2024 Active Comment on above: Take 0.1 mg by mouth once daily. 30 actuat fluticasone furoate 0.1 mg/actuat / umeclidinium 0.0625 mg/actuat / vilanterol 0.025 mg/actuat dry powder inhaler (20 sources) Anticholinergic, Corticosteroid, beta2-Adrenergic Agonist Start: 05-03-2025 take 1 puff(s) by inhalation once daily Fluticasone-Umec lidin-Vilant (Trelegy Ellipta) 100-62.5-25 MCG/ACT aerosol powder Indications: COPD, mild (HCC) Inhale 1 puff Daily 60 each 5 05/03/2025 Active Start: 05-03-2025 take 1 puff(s) by inhalation once daily Lrlpovuamfp-Tmhgdyogo-Motscx (Trelegy Ellipta) 100-62.5-25 MCG/ACT aerosol powder Indications: COPD, mild (HCC) Inhale 1 puff Daily 60 each 5 05/03/2025 Active Start: 03-03-2025 End: 05-03-2025 take 1 puff(s) by inhalation once daily Trelegy Ellipta 100-62.5-25 MCG/ACT aerosol powder Indications: COPD, mild (HCC) INHALE 1 PUFF ONCE DAILY 60 each 03/03/2025 05/03/2025 Discontinued (Reorder) Start: 04-20-2023 Fluticasone-Um eclidin-Vilanter (Trelegy Ellipta) 100-62.5-25 mcg blister with device Active 1 INH INHALATION Daily April 20, 2023 12:00am Complies with drug therapy Start: 04-20-2023 Fluticasone-Um eclidin-Vilanter (Trelegy Ellipta) 100-62.5-25 mcg blister with device Active 1 INH INHALATION Daily April 20, 2023 12:00am Start: 07-02-2020 take 1 puff(s) by [facility] once daily 1 puff, Inhalation, DAILY, First dose on Thu03/23/25 at 0900, Until Discontinued, Rinse mouth out with water (without swallowing) after every dose. Trelegy Ellipta 100-62.5-25 MCG/ACT Inhalation for 30 Days Active Comment on above: Inhale 1 Puff as ins tructed once daily. 14 actuat fluticasone furoate 0.1 mg/actuat / vilanterol 0.025 mg/actuat dry powder inhaler (9 sources) Corticosteroid, beta2-Adrenergic Agonist Start: take 1 puff(s) by inhalation in the morning fluticasone furoate-vilanteroL (BREO ELLIPTA) 100-25 mcg/dose blister with device Indications: CARISA (obstructive sleep apnea) , Shortness of breath , Chronic bronchitis ([facility]) Inhale 1 puff in the morning. 28 each 01/20/2024 Active take 1 puff(s) by in halation once daily fluticasone furoate-vilanterol (BREO ELL IPTA) 100-25 MCG/ACT inhaler Inhale 1 puff into the lungs daily Active 60 actuat formoterol fumarate 0.005 mg/actuat / mometasone furoate 0.2 mg/actuat metered dose inhaler (1 source) Corticosteroid, beta2-Adrenergic Agonist Start: 04-02-2022 mometasone-formoterol (DULERA) 200-5 MCG/ACT inhaler 2 puff Hibiclens 4% Soap (1 source) Start: 12-23-2021 Hibiclens 4% Soap Refill(s) 0 Start Date: 12/23/21 Status: Ordered hydrocortisone 100 mg injection (15 sources) Corticosteroid Start: 04-24-2022 End: 10-21-2022 hydrocortisone sodium succinate (PF) 100 mg injection (Solu-CORTEF) labetalol hydrochloride 5 mg/ml injectable solution (2 sources) beta-Adrenergic Nereyda Start: 04-26-2025 10 mg, IntraVENous, EVERY 15 MIN PRN, 2 doses, Starting on Thu04/26/25 at 1027, Until Discontinued, High Blood Pressure, for SBP greater than 180 mmHg for 2 consecutive measurements taken from different sites., Inform provider if SBP is still greater than 180 mmHg, 10 minutes after second antihypertensive dose is administered., PACU only Start: 03-28-2024 take 10 mg intraveno usly every four hours as needed 10 mg, intravenous, Every 4 hours PRN, SBP >100mmHg, Starting on Thu03/28/24 at 2015, Give at rate of 10 mg/min. levothyroxine sodium 0.1 mg oral tablet (20 sources) l-Thyroxine Start: 03-29-2024 take 112 ug by mouth once daily 112 mcg, oral, Daily RT, First dose on Thu03/29/24 at 0700 Start: 01-19-2024 End: 04-18-2024 take 1 capsule by mouth once daily levothyroxine (Tirosint) 112 mcg capsule Take 1 capsule (112 mcg) by mouth once daily. 01/19/2024 Active Start: 04-04-2020 End: 05-19-2025 take 1 tablet by mouth once daily Levothyroxine 100 mcg tablet Active 100 MCG PO Daily May 19, 2025 11:07am Complies with drug therapy Start: 03-29-2019 levothyroxine 100 mcg (0.1 mg) Tab Refills(s) 0 Start Date: 12/23/21 Status: Ordered Levothyroxine So dium 100 MCG Oral Tablet Quantity: 0 Refills: 0 Ordered: 13-Feb-2021 DO Active Levothyroxine So dium 100 MCG Oral Tablet Quantity: 0 Refills: 0 Ordered: 20-Jun-2020 DO Active End: 04-05-2019 take 1 tablet by mouth once daily levothyroxine (SYNTHROID) 125 MCG tablet Take 125 mcg by mouth Daily 0 04/05/2019 Discontinued (DOSE ADJUSTMENT) Comment on above: Take 100 mcg by mout h. meclizine hydrochloride 25 mg oral tablet (17 sources) Antiemetic Start: 4 End: 5 take 1 tablet by mouth four times daily as needed meclizine (ANTIVERT) 25 mg tablet Take 1 tablet (25 mg total) by mouth 4 (four) times a day as needed. 06/06/2024 Active 24 hr metoprolol succinate 100 mg extended release oral tablet (20 sources) beta-Adrenergic Nereyda Start: 4 End: 4 10 mg, intravenous, Once, On Thu03/28/24 at 2230, For 1 dose Start: 03-28-2024 take 100 mg by mouth once lindsey y 100 mg, oral, Daily, First dose on Thu03/28/24 at 2030, Do not crush or chew. Start: 06-23-2023 End: 06-28-2025 take 1 tablet by mouth once daily Metoprolol Succinate 100 mg tablet extended release 24 hr Active 100 MG PO Daily May 10, 2025 12:00am Complies with drug therapy Start: 04-07-2023 End: 11-29-2024 take 1 tablet by mouth once daily Metoprolol Succinate 50 mg tablet extended release 24 hr Discontinued 50 MG PO Daily April 20, 2023 12:00am November 29, 2024 6:46pm take 1 capsule by mo [facility] every twenty-four hours in the morning metoprolol succinate 100 mg capsule,sprinkle,ER 24hr Take 100 mg by mouth in the morning. Active midodrine hydrochloride 5 mg oral tablet (19 sources) alpha-Adrenergic Agonist Start: 05-23-2025 End: 05-24-2025 take 1 tablet by mouth once daily at bedtime Midodrine 5 mg tablet Active 5 MG PO Three times daily May 24, 2025 2:04pm do not give last dose of day after 6PM or within 4 hrs of bedtime Complies with drug therapy Start: 03-24-2025 take 1 tablet by rhoda twice daily at mealtime midodrine (PROAMATINE) 5 MG tablet Take 1 tablet by mouth 2 times daily (with meals) 90 tablet 3 03/24/2025 Active Start: 03-23-2025 End: 03-24-2025 take 2.5 mg by mouth twice daily at mealtime 2.5 mg, Oral, 2 TIMES DAILY WITH MEALS, First dose on Chana 03/23/25 at 0900, Until Discontinued, Do not give after 1800 or within 4 hrs of bedtime. Start: 05-09-2020 End: 06-25-2020 take 1 tablet by mouth three times daily midodrine (PROAMATINE) 2.5 MG tablet Take 1 tablet by mouth 3 times daily 90 tablet 3 05/09/2020 06/25/2020 Discontinued (DISCONTINUED BY ANOTHER CLINICIAN) 24 hr mirabegron 25 mg extended release oral tablet (1 source) beta3-Adrenergic Agonist Start: 06-19-2023 take 1 tablet by mouth once daily Myrbetriq 25 mg oral tablet, extended release 25 mg = 1 tab(s), Oral, Daily, # 30 tab(s), Refills(s) 6, Pharmacy: [id number], 161, cm, 06/19/23 13:26:00 EDT, Height/Length Dosing, 51.5, kg, 06/19/23 13:26:00 EDT, Weight Dosing Start Date: 06/19/23 Status: Ordered montelukast 10 mg oral tablet (20 sources) Leukotriene Receptor Antagonist Start: 02-02-2023 montelukast Daily Start Date: 02/02/23 Status: Ordered Start: 02-02-2023 MONTELUKAST SO DIUM PO Daily 02/02/2023 Active Start: 12-19-2022 End: 09-19-2025 take 1 tablet by mouth once daily Montelukast 10 mg tablet Active 10 MG PO Daily April 20, 2023 12:00am Complies with drug therapy Multiple Vitamins-Minerals (THERAPEUTIC MULTIVITAMIN-MINERALS) tablet (2 sources) take 1 tablet by mouth once daily Multiple Vitamins-Minerals (THERAPEUTIC MULTIVITAMIN-MINERALS) tablet Take 1 tablet by mouth daily 0 Active naloxone 0.4 mg in 10 mL sod ium chloride syringe (1 source) Start: 04-26-20 IntraVENous, PRN, Opioid Reversal, Starting on Thu04/26/25 at 1027, PRN if respiratory rate is less than 6/min and patient is difficult to arouse then notify physician STAT. Mix 9 mL of sodium chloride 0.9% with 0.4 mg (1 mL) of naloxone (NARCAN) in 10 mL syringe. (Note: dilution is 0.04 mg/mL) Give 0.08 mg (2 mL of special dilution), slow IV push, repeat up to 0.4 mg (10 mL) or until patient is responsive to physical stimulation and respiratory rate is equal to or greater than 6 breaths/min. Continue to observe, if no response within 3 minutes of administration of 0.4 mg (10 mL) total, repeat dose (0.4 mg as administered previously). Concentration 0.04 mg/mL, PACU only nebivolol 20 mg oral tablet (10 sources) Start: 01-17-20 take 1 mg by mouth once daily nebivolol 20 mg oral tablet mg tab(s), Oral, Daily Start Date: 02/02/23 Status: Ordered Start: 11-05-2022 take 1 tablet by rhoda once daily nebivolol (BYSTOLIC) 5 MG tablet Take 1 tablet by mouth daily 0 11/05/2022 Active omeprazole 40 mg delayed release oral capsule (20 sources) Proton Pump Inhibitor Start: 05-23-2025 take 1 capsule by mouth once daily Omeprazole 40 mg capsule,delayed release(DR/EC) Active 40 MG PO Daily May 23, 2025 12:00am Complies with drug therapy Start: 12-07-2024 take 1 capsule by mo [facility] before mealtime omeprazole (PriLOSEC) [address] capsule Indications: Hiatal hernia with gastroesophageal reflux Take 1 capsule (40 mg) by mouth in the morning. Take before meals. Do not crush or chew. 30 capsule 3 12/07/2024 Active Start: 12-26-2020 take 1 capsule by mo ut once daily before breakfast omeprazole (PRILOSEC) 40 MG delayed release capsule Take 40 mg by mouth every morning (before breakfast) 0 12/26/2020 Active Start: 06-20-2020 take 1 capsule by mo [facility] once daily 30 minutes before mealtime Omeprazole 20 MG Oral Capsule Delayed Release TAKE ONE DAILY 30 MINUTES BEFORE MEALS Quantity: 30 Refills: 1 Ordered: 20-Jun-2020 Garland Vincent MD Start : 20-Jun-2020 Active Comment on above: Take 40 mg by mouth once daily. ondansetron (ZOFRAN-ODT) disintegrating tablet 4 mg (3 sources) Start: 04-26-2025 ondansetron (ZOFRAN-ODT) disintegrating tablet 4 mg Start: 03-21-2025 ondansetron (Z OFRAN-ODT) disintegrating tablet 4 mg Start: 04-02-2022 ondansetron (Z OFRAN-ODT) disintegrating tablet 4 mg ondansetron ODT (Zofran-ODT) disintegrating tablet 4 mg (1 source) Start: 03-29-2024 take 1 tablet by mouth every six hours as needed ondansetron ODT (Zofran-ODT) disintegrating tablet 4 mg 24 hr oxybutynin chloride 10 mg extended release oral tablet (20 sources) Cholinergic Muscarinic Antagonist Start: 03-21-2025 take 10 mg by mouth once daily 10 mg, Oral, DAILY, First dose on Thu03/21/25 at 1800, Until Discontinued, Do not crush or break. Start: 07-03-2024 End: 05-23-2025 take 1 tablet by mouth every twenty-four hours Oxybutynin Chloride 10 mg tablet extended release 24hr Discontinued MG PO November 29, 2024 12:00am May 23, 2025 4:24pm Start: 04-27-2024 End: 12-08-2025 take 1 tablet by mouth once daily Oxybutynin Chloride 10 mg tablet extended release 24hr Active 10 MG PO Daily May 23, 2025 4:23pm Complies with drug therapy Start: 03-11-2022 take 1 tablet by rhoda th once daily at bedtime oxybutynin (DITROPAN) 5 mg tablet Take 5 mg by mouth daily at bedtime. 04/04/2022 Active Comment on above: Take 5 mg by mouth d aily at bedtime. oxyCODONE hydrochloride 5 mg oral tablet (8 sources) Opioid Agonist Start: 03-28-2024 take 1 tablet by mouth every six hours as needed 5 mg, oral, Every 6 hours PRN, pain moderate (4-6), first line, Starting on Thu03/28/24 at 1854, If ordered PRN for pain, nurse is permitted to administer this medication for higher pain scores based on patient preference? Yes Start: 03-28-2024 take 1 tablet by rhoda th every six hours as needed 10 mg, oral, Every 6 hours PRN, pain severe (7-10), first line, Starting on Thu03/28/24 at 1854, If ordered PRN for pain, nurse is permitted to administer this medication for higher pain scores based on patient preference? Yes Start: 03-31-2022 End: 04-17-2022 take 1 tablet by mouth every eight hours as needed for pain oxyCODONE IR (ROXICODONE) 5 mg immediate release tablet Indications: S/P revision of total knee, right Take 1 tablet by mouth every 8 hours as needed for pain. for pain. 10 tablet 0 03/31/2022 03/31/2022 Discontinued Start: 06-21-2021 End: 01-01-2022 oxyCODONE (ROXICODONE) 5 MG immediate release tablet 5 mg every 6 hours as needed. 0 06/21/2021 01/01/2022 Discontinued (Therapy completed) Comment on above: Take 1 tablet by rhoda every 8 hours as needed for pain. for pain. oxygen (O2) therapy (2 sources) Start: 03-31-2024 inhalation, Continuous PRN - O2/gases, other, Starting on Thu03/31/24 at 0906, Recovery (only), Device: Nasal Cannula, Rate in liters per minute: Other, Custom Value: 1-6 LPM, Keep O2 Sat Above: 92% Start: 03-29-2024 inhalation, Co ntinuous PRN - O2/gases, other, Starting on Thu03/29/24 at 0904, Device: Nasal Cannula, Rate in liters per minute: 2 LPM, Keep O2 Sat Above: 90% polyethylene glycol 3350 170 00 mg powder for oral solution (5 sources) Osmotic Laxative Start: 03-21-2025 Start: 03-28-2024 End: 03-31-2024 take 17 g by mouth every twenty-four hours as needed 17 g, oral, Daily PRN, constipation, Starting on Thu03/31/24 at 1030, Bowel Regimen - for prevention of constipation. Start: 04-02-2022 17 g, Oral, DA LAURA PRN, Starting on Thu04/02/22 at 1558, Until Discontinued, Constipation First line therapy for constipation Start: 04-03-2020 polyethylene g lycol (GLYCOLAX) packet 17 g potassium nitrate 0.05 mg/mg / sodium fluoride 0.011 mg/mg toothpaste (20 sources) Start: 04-22-2024 sodium fluorid e-pot nitrate 1.1-5 % paste 04/22/2024 Active Start: 04-22-2024 End: 12-07-2024 sodium fluoride-pot nitrate 1.1-5 % paste USE A PEA SIZE AMOUNT TWICE DAILY IN PLACE OF REGULAR TOOTHPASTE 04/22/2024 Active Start: 05-30-2022 SODIUM FLUORID E 5000 SENSITIVE 1.1-5 % GEL daily 0 05/30/2022 Active roflumilast 0.5 mg oral tablet (20 sources) Phosphodiesterase 4 Inhibitor Start: 12-23-2021 Daliresp 500 mcg oral tablet Refills(s) 0 Start Date: 12/23/21 Status: Ordered Start: 06-10-2018 take 1 tablet by rhoda th once daily Roflumilast 500 mcg tablet Active 500 MCG PO Daily May 10, 2025 12:00am Complies with drug therapy Comment on above: Take 500 mcg by mout h once daily. rOPINIRole 1 mg oral tablet (20 sources) Nonergot Dopamine Agonist Start: 05-10-2025 take 2 tablets by mouth once daily at bedtime Ropinirole 1 mg tablet Active 2 MG PO Daily at bedtime May 10, 2025 1:35pm Complies with drug therapy Start: 03-21-2025 take 2 mg by mouth once daily 2 mg, Oral, NIGHTLY, First dose on Thu03/21/25 at 2100, Until Discontinued Start: 12-07-2024 End: 01-30-2025 take 2 tablets by mouth at bedtime rOPINIRole (Requip) 1 MG tablet Indications: Restless leg syndrome Take 2 tablets (2 mg) by mouth at bedtime 30 tablet 5 12/07/2024 01/30/2025 Discontinued (Reorder) Start: 06-06-2024 take 1 tablet by rhoda th once daily rOPINIRole (REQUIP) 2 MG tablet Take 1 tablet by mouth nightly 06/06/2024 Active Start: 06-06-2024 End: 05-10-2025 take 1 tablet by mouth once daily at bedtime Ropinirole 1 mg tablet Discontinued 1 MG PO Daily at bedtime November 29, 2024 12:00am May 10, 2025 1:38pm 72 hr scopolamine 0.0139 mg/hr transdermal system (1 source) Anticholinergic scopolamine (TRANSDERM-SCOP) transdermal patch Place 1 patch onto the skin every 72 hours 0 Active 5 ml sodium chloride 9 mg/ml injection (20 sources) Start: End: take 100 mL intravenously every hour as needed, then take 20 mL intravenously every hour as needed 5-250 mL/hr, IntraVENous, PRN, If patient receiving piggyback infusions and maintenance fluids are not ordered OR KVO fluids to protect IV site/ prevent frequent line interruptions/ long duration, Starting on Thu05/16/25 at 1002, For 18 hours, For piggyback infusion, administer at same rate as piggyback for a total of 25 mL. Enter 25 mL into dose field and piggyback rate into rate field of order. If piggyback is infusing at a rate less than 100 mL/hr, enter 25 mL into dose field and 100 mL/hr into rate field of order. For KVO fluids, enter rate of 20 mL/hr or less into rate field of order. Start: 05-16-2025 End: 05-17-2025 5-40 mL, IntraVENous, PRN, Starting on Thu05/16/25 at 1002, Until Thu05/17/25 at 0401, Line Care, If following IV push medication, administer flush at same rate as the IV push. Flush volume is determined by type of infusion therapy being given. For non-viscous solutions use: Peripheral IV = 5 mL Midline or Central Line = 10 mL/lumen For viscous solutions (i.e. blood components, parenteral nutrition, contrast media, or after obtaining blood sample) use: Peripheral IV = 10 mL Midline or Central Line = 20 mL/lumen Start: 05-09-2025 End: 05-10-2025 take 100 mL intravenously every hour as needed, then take 20 mL intravenously every hour as needed 5-250 mL/hr, IntraVENous, PRN, If patient receiving piggyback infusions and maintenance fluids are not ordered OR KVO fluids to protect IV site/ prevent frequent line interruptions/ long duration, Starting on Thu05/09/25 at 0944, For 18 hours, For piggyback infusion, administer at same rate as piggyback for a total of 25 mL. Enter 25 mL into dose field and piggyback rate into rate field of order. If piggyback is infusing at a rate less than 100 mL/hr, enter 25 mL into dose field and 100 mL/hr into rate field of order. For KVO fluids, enter rate of 20 mL/hr or less into rate field of order. Start: 05-09-2025 End: 05-10-2025 5-40 mL, IntraVENous, PRN, Starting on Thu05/09/25 at 0922, Until Thu05/10/25 at 0321, Line Care, If following IV push medication, administer flush at same rate as the IV push. Flush volume is determined by type of infusion therapy being given. For non-viscous solutions use: Peripheral IV = 5 mL Midline or Central Line = 10 mL/lumen For viscous solutions (i.e. blood components, parenteral nutrition, contrast media, or after obtaining blood sample) use: Peripheral IV = 10 mL Midline or Central Line = 20 mL/lumen Start: 04-26-2025 End: 04-26-2025 IntraVENous, at 75 mL/hr, CONTINUOUS, Starting on Thu04/26/25 at 1030, For 2 hours, Recovery(Cath) Start: 04-26-2025 IntraVENous, a t 5-250 mL/hr, PRN, if patient receiving piggyback infusions and maintenance fluids are not ordered, Starting on Thu04/26/25 at 1004, For piggyback infusion, administer at same rate as piggyback for a total of 25 mL. Enter 25 mL into dose field and piggyback rate into rate field of order. If piggyback is infusing at a rate less than 100 mL/hr, enter 25 mL into dose field and 100 mL/hr into rate field of order., Recovery(Cath) Start: 04-26-2025 5-40 mL, Intra VENous, EVERY 12 HOURS SCHEDULED (2 times per day), First dose on Thu04/26/25 at 1045, Until Discontinued, For Line Patency: Peripheral IV = 5 mL; Midline or Central Line = 10 mL/lumen. If following IV push medication, administer flush at same rate as the IV push. Flush volume is determined by type of infusion therapy being given. For non-viscous solutions use: Peripheral IV = 5 mL Midline or Central Line = 10 mL/lumen For viscous solutions (i.e. blood components, parenteral nutrition, contrast media, or after obtaining blood sample) use: Peripheral IV = 10 mL Midline or Central Line = 20 mL/lumen, PACU only Start: 04-26-2025 5-40 mL, Intra VENous, PRN, Starting on Thu04/26/25 at 1004, Until Discontinued, Line Care, After every IV line use, For Line Patency: Peripheral IV = 5 mL; Midline or Central Line = 10 mL/lumen. If following IV push medication, administer flush at same rate as the IV push. Flush volume is determined by type of infusion therapy being given. For non-viscous solutions use: Peripheral IV = 5 mL Midline or Central Line = 10 mL/lumen For viscous solutions (i.e. blood components, parenteral nutrition, contrast media, or after obtaining blood sample) use: Peripheral IV = 10 mL Midline or Central Line = 20 mL/lumen, Recovery(Cath) Start: 03-21-2025 5-40 mL, Intra VENous, EVERY 12 HOURS SCHEDULED (2 times per day), First dose on Thu03/21/25 at 2100, Until Discontinued, For Line Patency: Peripheral IV = 5 mL; Midline or Central Line = 10 mL/lumen. If following IV push medication, administer flush at same rate as the IV push. Flush volume is determined by type of infusion therapy being given. For non-viscous solutions use: Peripheral IV = 5 mL Midline or Central Line = 10 mL/lumen For viscous solutions (i.e. blood components, parenteral nutrition, contrast media, or after obtaining blood sample) use: Peripheral IV = 10 mL Midline or Central Line = 20 mL/lumen Start: 03-21-2025 Start: 03-21-2025 End: 03-24-2025 IntraVENous, at 75 mL/hr, CONTINUOUS, Starting on Thu03/21/25 at 1800 Start: 04-24-2022 End: 10-21-2022 NaCl 0.9% iv infusion Start: 04-24-2022 End: 10-21-2022 NaCl (PF) 0.9% 10-20 mL inje ction Start: 04-02-2022 take 1 dose intraven ously twice daily 5-40 mL, IntraVENous, EVERY 12 HOURS SCHEDULED (2 times per day), First dose on Thu04/02/22 at 2100, Until Discontinued For Line Patency: Peripheral IV = 5 mL; Midline or Central Line = 10 mL/lumen. If following IV push medication, administer flush at same rate as the IV push. Flush volume is determined by type of infusion therapy being given. For non-viscous solutions use: Peripheral IV = 5 mL Midline or Central Line = 10 mL/lumen For viscous solutions (i.e. blood components, parenteral nutrition, contrast media, or after obtaining blood sample) use: Peripheral IV = 10 mL Midline or Central Line = 20 mL/lumen Start: 04-02-2022 End: 04-03-2022 IntraVENous, at 75 mL/hr, CONTINUOUS, Starting on Thu04/02/22 at 1630 Start: 04-02-2022 take 25 mL intraveno usly every hour as needed 25 mL, IntraVENous, at 100 mL/hr, PRN, If patient receiving piggyback infusions without ordered maintenance IV fluids or with frequent/long duration piggyback infusions, Starting on Thu04/02/22 at 1558 Administer at the same rate as the piggyback being infused. Start: 04-02-2022 take 5-40 mL intrave nously once as needed 5-40 mL, IntraVENous, PRN, Starting on Thu04/02/22 at 1558, Until Discontinued, Line Care, After every IV line use For Line Patency: Peripheral IV = 5 mL; Midline or Central Line = 10 mL/lumen. If following IV push medication, administer flush at same rate as the IV push. Flush volume is determined by type of infusion therapy being given. For non-viscous solutions use: Peripheral IV = 5 mL Midline or Central Line = 10 mL/lumen For viscous solutions (i.e. blood components, parenteral nutrition, contrast media, or after obtaining blood sample) use: Peripheral IV = 10 mL Midline or Central Line = 20 mL/lumen Start: 04-03-2020 sodium chlorid e flush 0.9 % injection 10 mL thiamine 100 mg oral tablet (1 source) Start: 03-29-2024 End: 04-08-2024 100 mg, g-tube, Daily, First dose on Thu03/29/24 at 1230, For 10 doses 10 actuat tiotropium 0.0025 mg/actuat inhalation spray (18 sources) Anticholinergic Start: 04-03-2022 tiotropium (SP IRIVA RESPIMAT) 2.5 MCG/ACT inhaler 2 puff Start: 04-06-2020 take 1 puff(s) by in halation twice daily tiotropium (SPIRIVA RESPIMAT) 2.5 MCG/ACT AERS inhaler Inhale 1 puff into the lungs 2 times daily Patient can NOT afford 1 Inhaler 2 04/06/2020 Active Start: 04-04-2020 tiotropium (SP IRIVA RESPIMAT) 2.5 MCG/ACT inhaler 1 puff Start: 12-05-2016 take 2 puff(s) by in halation once daily tiotropium (SPIRIVA RESPIMAT) 2.5 MCG/ACT AERS inhaler Inhale 2 puffs into the lungs daily Patient can NOT afford 0 12/05/2016 Active Start: 12-05-2016 tiotropium (SP IRIVA RESPIMAT) 2.5 MCG/ACT AERS inhaler 2 inhalations once daily -NOT TAKING BECAUSE CAN'T AFFORD 0 12/05/2016 Active Start: 12-05-2016 End: 04-06-2020 take 2 puff(s) by inhalation once daily tiotropium (SPIRIVA RESPIMAT) 2.5 MCG/ACT AERS inhaler Inhale 2 puffs into the lungs daily Patient can NOT afford 0 12/05/2016 04/06/2020 Discontinued (REORDER) Spiriva Respimat 2.5 MCG/ACT Inhalation Aerosol Solution Quantity: 0 Refills: 0 Ordered: 20-Jun-2020 DO Active tiotropium (Spiriva Respimat) 2.5 mcg/actuation inhaler 2 puff (1 source) Start: 03-29-2024 tiotropium (Sp iriva Respimat) 2.5 mcg/actuation inhaler 2 puff traMADol hydrochloride 50 mg oral tablet (6 sources) Opioid Agonist Start: 05-22-2022 End: 05-29-2022 take 1-2 tablets by mouth every eight hours as needed for pain traMADol (ULTRAM) 50 mg tablet Indications: S/P revision of total knee, right Take 1-2 tablets by mouth every 8 hours as needed for pain for up to 7 days. 42 tablet 0 05/22/2022 05/29/2022 Active Start: 05-06-2022 End: 06-04-2022 take 1 tablet by mouth once daily as needed traMADol (ULTRAM) 50 MG tablet Take 50 mg by mouth daily as needed. 0 05/06/2022 06/04/2022 Discontinued (Therapy completed) Start: 05-06-2022 End: 05-13-2022 take 1-2 tablets by mouth every six hours as needed for pain traMADol (ULTRAM) 50 mg tablet Indications: Infection associated with internal right knee prosthesis, subsequent encounter , Post-op pain Take 1-2 tablets by mouth every 6 hours as needed for pain for up to 7 days. 42 tablet 0 05/06/2022 05/13/2022 Active Comment on above: Take 1-2 tablets by mouth every 6 hours as needed for pain for up to 7 days. Take 1-2 tablets by mouth every 8 hours as needed for pain for up to 7 days. traZODone hydrochloride 150 mg oral tablet (20 sources) Serotonin Reuptake Inhibitor Start: 03-21-2025 take 50 mg by mouth once daily as needed 50 mg, Oral, NIGHTLY PRN, Starting on Thu03/21/25 at 2247, Until Discontinued, Sleep Start: 03-28-2024 take 150 mg by mouth once lindsey y 150 mg, oral, Nightly, First dose on Thu03/28/24 at 2100 Start: 04-02-2022 take 150 mg by mouth once lindsey y 150 mg, Oral, NIGHTLY, First dose on Thu04/02/22 at 2100, Until Discontinued Start: 05-22-2020 traZODone HCl - 150 MG Oral Tablet Quantity: 90 Refills: 0 Ordered: 22-May-2020 DO Start : 22-May-2020 Active Start: 04-03-2020 take 150 mg by mouth once lindsey y 150 mg, Oral, NIGHTLY, First dose on Thu04/03/20 at 2100 Start: 08-05-2016 End: 06-28-2025 take 1 tablet by mouth at bedtime Trazodone 150 mg tablet Discontinued 150 MG PO Bedtime April 20, 2023 12:00am May 22, 2025 3:52pm traZODone (DESYR EL) 150 MG tablet Take 75 mg by mouth nightly 0 Active Comment on above: Take 1 tablet by rhoda th daily at bedtime. Trelegy Ellipta 100 mcg-62.5 mcg-25 mcg inhalation powder (6 sources) Start: 022 Trelegy Ellipta 100 mcg-62.5 mcg-25 mcg inhalation powder Refills(s) 0 Start Date: 12/23/21 Status: Ordered 7 actuat umeclidinium 0.0625 mg/actuat dry powder inhaler (7 sources) Anticholinergic Start: 024 take 1 puff(s) by inhalation in the morning umeclidinium (INCRUSE ELLIPTA) 62.5 mcg/actuation blister with device Indications: CARISA (obstructive sleep apnea) , Shortness of breath , Chronic bronchitis ([facility]) Inhale 1 puff in the morning. 7 each 01/20/2024 Active vitamin b12 1 mg oral tablet (20 sources) Vitamin B12 Start: 025 take 1 tablet by mouth in the morning cyanocobalamin (Vitamin B-12) 1000 MCG tablet Take 1,000 mcg by mouth in the morning. 12/17/2024 Active Start: 12-17-2024 take 1 tablet by rhoda th in the morning cyanocobalamin 1000 MCG tablet Take 1 tablet (1,000 mcg total) by mouth in the morning. 30 tablet 12/17/2024 Active Start: 12-17-2024 take 1 tablet by rhoda th in the morning cyanocobalamin 1000 MCG tablet Take 1 tablet (1,000 mcg total) by mouth in the morning. 30 tablet 12/17/2024 Active warfarin (COUMADIN) daily do sing (placeholder) (1 source) Start: 04-03-2020 warfarin (COUM DEVANG) daily dosing (placeholder) warfarin placeholder: dosing by pharmacy (1 source) Start: 04-02-[address] k[place]ara: dosing by pharmacy Completed/Discontinued Medications Medication Drug Class(es) Dates Sig (Normalized) Sig (Original) albuterol 0.833 mg/ml / ipratropium bromide 0.167 mg/ml inhalation solution (2 sources) Anticholinergic, beta2-Adrenergic Agonist Start: 03-23-2025 take 1 dose by inhalation every four hours as needed 1 Dose, Inhalation, EVERY 4 HOURS PRN, Starting on Thu03/23/25 at 0815, Until Discontinued, Shortness of Breath, Initiate RT Bronchodilator Protocol: Yes - Inpatient Protocol Start: 03-22-2025 End: 03-23-2025 take 1 dose by inhalation four times daily 1 Dose, Inhalation, 4 TIMES DAILY RESP, First dose on Thu03/22/25 at 1600, Until Discontinued, Initiate RT Bronchodilator Protocol: Yes - Inpatient Protocol aluminum hydroxide 50.8 mg/ml / magnesium carbonate 47.5 mg/ml oral suspension (1 source) Start: 03-05-2021 take 10 mL by mouth at bedtime Gaviscon Extra Strength 254-237.5 MG/5ML Oral Suspension Take 10ml after meals and at bedtime. Quantity: 1 Refills: 4 Ordered: 05-Mar-2021 Taurus Dobson MD Start : 05-Mar-2021 Active amLODIPine 10 mg oral tablet (20 sources) Dihydropyridine Calcium Channel Nereyda Start: 11-29-2024 End: 05-10-2025 take 1 tablet by mouth once daily Amlodipine 10 mg tablet Discontinued 10 MG PO Daily November 29, 2024 12:00am May 10, 2025 1:32pm Start: 04-20-2023 End: 11-29-2024 take 1 tablet by mouth once daily Amlodipine 5 mg tablet Discontinued 5 MG PO Daily April 20, 2023 12:00am November 29, 2024 6:44pm Start: 02-02-2023 amlodipine Ora l, Daily Start Date: 02/02/23 Status: Ordered Start: 01-13-2023 take 1 tablet by rhoda th once daily amLODIPine (NORVASC) 10 MG tablet Take 1 tablet by mouth daily 30 tablet 1 01/13/2023 Active Start: 06-06-2022 take 1 tablet by rhoda th once daily amLODIPine (NORVASC) 2.5 MG tablet Take 1 tablet by mouth daily 30 tablet 5 06/06/2022 Active Start: 05-18-2022 take 1 tablet by rhoda th once daily amLODIPine (NORVASC) 2.5 MG tablet Take 2.5 mg by mouth daily 0 05/18/2022 Active Start: 03-09-2022 End: 04-03-2022 take 1 tablet by mouth in the morning amLODIPine (NORVASC) 2.5 MG tablet Take 1 tablet by mouth in the morning. 90 tablet 3 03/09/2022 04/03/2022 Discontinued (Stop Taking at Discharge) Start: 01-03-2022 take 1 tablet by rhoda th once daily amLODIPine (NORVASC) 2.5 MG tablet Take 1 tablet by mouth daily 90 tablet 3 01/03/2022 Active Start: 12-27-2021 take 1 tablet by rhoda th once daily amLODIPine (NORVASC) 2.5 MG tablet Take 1 tablet by mouth daily 90 tablet 3 12/27/2021 Active Start: 06-21-2021 End: 10-05-2022 take 1 tablet by mouth once daily amLODIPine (NORVASC) 5 mg tablet Take 1 tablet by mouth once daily. 30 tablet 1 06/21/2021 Active Start: 04-04-2020 End: 04-06-2020 take 2.5 mg by mouth once daily 2.5 mg, Oral, DAILY, F irst dose on Thu04/04/20 at 0900 Hold for SBP <110 Start: 11-09-2019 End: 04-06-2020 take 0.5 tablet by mouth once daily amLODIPine (NORVASC) 5 MG tablet Indications: Essential hypertension Take 0.5 tablets by mouth daily 90 tablet 3 11/09/2019 04/06/2020 Discontinued (Stop Taking at Discharge) Start: 07-04-2019 End: 06-04-2021 take 1 tablet by mouth twice daily amLODIPine (NORVASC) 5 mg tablet TAKE 1 TABLET BY MOUTH TWICE DAILY FOR 90 DAYS 0 10/19/2019 06/04/2021 Discontinued Start: 06-29-2019 take 1 tablet by rhoda th once daily, then take 0.5 tablet by mouth once daily amLODIPine (NORVASC) 5 MG tablet Take 1 tablet by mouth daily Take 1/2 tablet daily 90 tablet 3 06/29/2019 Active amLODIPine Besyl ate 5 MG Oral Tablet Quantity: 0 Refills: 0 Ordered: 03-Jul-2021 DO Active Comment on above: Take 1 tablet by rhoda th once daily. TAKE 1 TABLET BY RHODA TH TWICE DAILY FOR 90 DAYS apixaban 5 mg oral tablet (20 sources) Factor Xa Inhibitor Start: 11-29-2024 End: 05-10-2025 take 2.5 mg by mouth twice daily Apixaban (Eliquis) 5 mg tablet Discontinued 2.5 MG PO Twice daily November 29, 2024 12:00am May 10, 2025 1:32pm Start: 01-14-2024 End: 11-28-2024 take 0.5 tablet by mouth in the morning, then take 0.5 tablet by mouth at bedtime ELIQUIS 5 mg tablet TAKE 1/2 (ONE-HALF) TABLET BY MOUTH IN THE MORNING AND 1/2 (ONE-HALF) AT BEDTIME 60 tablet 11/28/2024 Active Start: 01-14-2024 End: 02-20-2025 take 1 tablet by mouth in the morning apixaban (Eliquis) 2.5 MG tablet Take 1 tablet (2.5 mg) by mouth in the morning and 1 tablet (2.5 mg) before bedtime. 60 tablet 3 01/14/2024 02/20/2025 Discontinued Start: 06-19-2023 take 1 tablet by rhoda th twice daily apixaban (ELIQUIS) 5 MG TABS tablet Take 1 tablet by mouth 2 times daily 180 tablet 3 06/19/2023 Active ascorbic acid 500 mg oral tablet (9 sources) Vitamin C Start: 06-20-2021 End: 04-17-2022 take 1 tablet by mouth twice daily at mealtime ascorbic acid, vitamin C, (VITAMIN C) 500 mg tablet Take 1 tablet by mouth twice daily with meals for 21 doses. 21 tablet 06/20/2021 04/17/2022 Discontinued (Course of therapy completed) take 1 tablet by mouth once lindsey y Ascorbic Acid (VITAMIN C) 250 MG tablet Take 250 mg by mouth daily 0 Active Comment on above: Take 1 tablet by rhoda th twice daily with meals for 21 doses. Aspir-81 81 MG (1 source) take 1 tablet by mouth once daily Aspir-81 81 MG 1 tablet Orally Once a day *please review for potential _update for e-prescription and drug interaction check* Not-Taking barium sulfate (E-Z-Disk) tablet 700 mg (1 source) Start: 2023 End: 2023 take 1-2 tablets by mouth once 700 mg (1 tablet), oral, Once in imaging, Starting on Thu03/29/24 at 0858, For 1 dose, Swallow whole with 1-2 swallows of water just prior to fluoroscopic examination. barium sulfate (E-Z-Paque) 96 % (w/w) suspension 150 mL (1 source) Start: 2023 End: 2023 take 150 mL by mouth once 150 mL, oral, Once in imaging, Starting on Thu04/01/24 at 1042, For 1 dose barium sulfate (Varibar Honey) 40 %(w/v), 29% (w/w)(1500 CPS) suspension 5 mL (1 source) Start: 2023 End: 2023 take 5 mL by mouth once 5 mL, oral, Once in imaging, Starting on Thu03/29/24 at 0857, For 1 dose barium sulfate (Varibar [place]) 40 % (w/v) suspension 30 mL (1 source) Start: 2023 End: 2023 take 30 mL by mouth once 30 mL, oral, Once in imaging, Starting on Thu03/29/24 at 0857, For 1 dose barium sulfate (Varibar Pudding) 40 % (w/v), 30% (w/w) oral paste 5 mL (1 source) Start: 2023 End: 2023 5 mL, oral, Once in imaging, Starting on Thu03/29/24 at 0858, For 1 dose, Administer with oral syringe or spoon. Max cumulative dose of 30 mL. Discard any unused product 21 days after tube opened. barium sulfate (Varibar THIN Liquid) 81 % (w/w) suspension 105 mL (1 source) Start: 2023 End: 2023 take 105 mL by mouth once 105 mL, oral, Once in imaging, Starting on Thu03/29/24 at 0857, For 1 dose benzonatate 100 mg oral capsule (1 source) Non-narcotic Antitussive take 1 capsule by mouth every eight hours Benzonatate 100 MG 1 capsule as needed Orally Three times a day Not-Taking onabotulinumtoxina 100 unt injection (1 source) Acetylcholine Release Inhibitor Start: 2023 End: 2023 inject 100 [IU] by intramuscular injection once 100 Units, intramuscular, Once, On Thu03/31/24 at 0900, For 1 dose Start: 03-31-2024 End: 03-31-2024 inject 100 [IU] by intramuscular injection once 100 Units, intramuscular, Once, On Thu03/31/24 at 0900, For 1 dose 100 ml calcium gluconate 20 mg/ml injection (1 source) Start: 03-24-2025 End: 03-24-2025 2,000 mg, IntraVENous, at 50 mL/hr, Administer over 120 Minutes, ONCE, On Thu03/24/25 at 0700, For 1 dose carbidopa 25 mg / levodopa 100 mg oral tablet (20 sources) Aromatic Amino Acid Decarboxylation Inhibitor, Aromatic Amino Acid Start: 05-23-2025 End: 05-24-2025 take 1 tablet by mouth two times weekly as needed Carbidopa-Levodopa (Sinemet) 25-100 mg tablet Discontinued 1 TAB PO As Directed as needed May 23, 2025 12:00am May 24, 2025 1:37pm One tablet as needed two times a week Start: 12-17-2022 take 1 tablet by rhoda th once daily at bedtime carbidopa-levodopa (Sinemet) 25-100 MG tablet Take 1 tablet every day by oral route at bedtime. 12/17/2022 Active Start: 05-22-2020 End: 05-10-2025 take 1 tablet by mouth at bedtime Carbidopa-Levodopa 25-100 mg tablet Discontinued 1 TAB PO Bedtime April 20, 2023 12:00am May 10, 2025 1:33pm Start: 08-05-2016 End: 12-17-2020 take 1 tablet by mouth once daily in the morning carbidopa-levodopa (SINEMET 25-100) 25-100 mg per tablet Take 1 tablet by mouth every morning. 0 08/05/2016 Active take 1 tablet by rhoda th two times weekly as needed carbidopa-levodopa (Sinemet) 25-100 MG tablet 1 tablet as needed Orally Two times a Week Active Comment on above: Take 1 tablet by rhoda th every morning. carvedilol 3.125 mg oral tablet (15 sources) alpha-Adrenergic Nereyda, beta-Adrenergic Nereyda Start: 0 End: 0 take 1 tablet by mouth twice daily at mealtime carvedilol (COREG) 3.125 MG tablet Indications: Dysautonomia (HCC) , Coronary artery disease involving [place] coronary artery of [place] heart without angina pectoris , S/P coronary artery stent placement , Angina, class III (HCC) , Chronic diastolic CHF (congestive heart failure), NYHA class 3 (HCC) , History of DVT (deep vein thrombosis) Take 1 tablet by mouth 2 times daily (with meals) 180 tablet 3 11/07/2019 06/25/2020 Discontinued (DISCONTINUED BY ANOTHER CLINICIAN) Start: 06-13-2019 End: 11-07-2019 take 1 tablet by mouth twice daily at mealtime carvedilol (COREG) 6.25 MG tablet Take 1 tablet by mouth 2 times daily (with meals) 180 tablet 3 06/13/2019 11/07/2019 Discontinued Start: 05-30-2019 take 1 tablet by rhoda th twice daily carvedilol (COREG) 12.5 MG tablet Take 1 tablet by mouth 2 times daily 180 tablet 3 05/30/2019 Active take 1 tablet by rhoda th twice daily at mealtime carvedilol (COREG) 6.25 MG tablet Take 6.25 mg by mouth 2 times daily (with meals) 0 Active cetirizine hydrochloride 10 mg oral tablet (7 sources) Histamine-1 Receptor Antagonist Start: 12-30-2019 take 1 tablet by mouth every twenty-four hours Cetirizine HCl 10 MG 1 tablet Orally Once a day for 30 day(s) December, Not-Taking End: 07-13-2019 take 1 tablet by mouth once daily cetirizine (ZYRTEC) 10 MG tablet Take 10 mg by mouth daily 0 07/13/2019 Discontinued ciprofloxacin 500 mg oral tablet (11 sources) Quinolone Antimicrobial Start: 05-06-2022 End: 06-17-2022 take 1 tablet by mouth twice daily ciprofloxacin (CIPRO) 500 MG tablet Take 500 mg by mouth 2 times daily 0 05/06/2022 06/04/2022 Discontinued (Therapy completed) Comment on above: Take 1 tablet by rhoda th twice daily. clotrimazole 10 mg oral lozenge (8 sources) Azole Antifungal Start: 03-05-2021 End: 03-20-2021 Clotrimazole 10 MG Mouth/Throat Tejinder ALLOW 1 TO DISSOLVE SLOWLY IN MOUTH 5 TIMES DAILY DIRECTED. Quantity: 70 Refills: 0 Ordered: 05-Mar-2021 Taurus Dobson MD Start : 05-Mar-2021 End : 20-Mar-2021 Complete 1 ml denosumab 60 mg/ml prefilled syringe (20 sources) RANK Ligand Inhibitor Start: 01-13-2025 End: 01-13-2025 denosumab (PROLIA) injection 60 mg Start: 01-13-2025 End: 01-13-2025 60 mg, subcutaneous, Once, O n 5/30/25 at 1130, For 1 dose, Bring to room temp (15-30min) in original container. Give sub-Q in upper arm, upper thigh, or abdomen. End: 12-07-2024 Denosumab (PROLIA SC) Inject under the skin 12/07/2024 Discontinued Denosumab (PROLI A SC) Inject under the skin Active diatrizoate lele-diatrizoat sod (Gastrografin 37% organic bound iodine) solution 30 mL (1 source) Start: 04-01-2024 End: 04-01-2024 take 30 mL by mouth once 30 mL, oral, Once, On Thu04/01/24 at 1100, For 1 dose, What is the indication of use? Diagnostic Use droxidopa 100 mg oral capsule (6 sources) Start: 01-20-2020 End: 02-14-2020 take 3 capsules by mouth three times daily Droxidopa 100 MG CAPS Indications: Dysautonomia orthostatic hypotension syndrome (HCC) , ASHD (arteriosclerotic heart disease) , Chronic diastolic congestive heart failure (HCC) , History of DVT (deep vein thrombosis) , Lightheadedness , Shortness of breath Take 3 capsules by mouth 3 times daily Take sitting BP prior to each dose, hold for systolic blood pressure >150 270 capsule 3 01/20/2020 02/14/2020 Discontinued (Side effects) Start: 07-03-2019 End: 07-13-2019 Droxidopa (NORTHERA) 100 MG CAPS Take 2 capsules 3 times daily 360 capsule 0 07/03/2019 07/13/2019 Discontinued Start: 06-29-2019 End: 07-13-2019 take 1 capsule by mouth three times daily Droxidopa (NORTHERA) 200 MG CAPS Take 200 mg by mouth three times daily 270 capsule 3 06/29/2019 07/13/2019 Discontinued Start: 06-27-2019 take 2 capsules by m outh three times daily Droxidopa (NORTHERA) 100 MG CAPS Take 2 capsules by mouth 3 times daily 180 capsule 11 06/27/2019 Active take 1 capsule by mo uth three times daily Droxidopa 100 MG 1 capsule Orally Three times a day, as directed *please review for potential _update for e-prescription and drug interaction check* Cardiology Not-Taking 2 ml enalaprilat 1.25 mg/ml injection (1 source) Angiotensin Converting Enzyme Inhibitor Start: 03-28-2024 End: 03-28-2024 1.25 mg, intravenous, Once, On Thu03/28/24 at 2330, For 1 dose, IV push administer over 5 minutes; IV piggyback dilute in 50 mL NS or D5 and administer over 20 minutes 1 ml epoetin sixto-epbx 3000 unt/ml injection (2 sources) Erythropoiesis-st imulating Agent Start: 05-16-2025 End: 05-16-2025 inject 3000 [IU] by subcutaneous injection once 3,000 Units, SubCUTAneous, ONCE, On Thu05/16/25 at 1045, For 1 dose, Hold for hgb>10 Start: 05-09-2025 End: 05-09-2025 inject 3000 [IU] by subcutaneous injection once 3,000 Units, SubCUTAneous, ONCE, On Thu05/09/25 at 1130, For 1 dose, Hold for hgb>10 2 ml fentaNYL 0.05 mg/ml injection (1 source) Opioid Agonist Start: 04-26-2025 25 mcg, IntraV ENous, EVERY 10 MIN PRN, 3 doses, Starting on Thu04/26/25 at 1027, Until Discontinued, Pain Moderate (4-6) OR per patient request for pain score (7-10), Pain Severe (7-10), For Phase I. If Phase II oral narcotics have been administered in the last 60 minutes, do not administer IV narcotics unless specifically approved by provider., PACU only fluticasone propionate 0.05 mg/actuat metered dose nasal spray (20 sources) Corticosteroid Start: 01-27-2024 End: 12-07-2024 take 2 spray(s) nasal route once daily fluticasone (Flonase) 50 MCG/ACT nasal spray Indications: Chronic rhinosinusitis Administer 2 sprays into each nostril Daily Shake gently. Before first use, prime pump. After use, clean tip and replace cap. 16 g 5 01/27/2024 12/07/2024 Discontinued Start: 04-20-2023 End: 05-10-2025 Fluticasone Propionate 50 mc g/actuation spray,suspension Discontinued 2 SPRAY INTRANASAL Daily April 20, 2023 12:00am May 10, 2025 1:34pm Start: 11-27-2022 fluticasone (F lonase) 50 mcg/actuation nasal spray 2 sprays once daily. 11/27/2022 Active Start: 05-18-2020 End: 03-19-2021 take 2 spray(s) nasal route once daily Fluticasone Propionate 50 MCG/ACT Nasal Suspension USE 2 SPRAY(S) IN EACH NOSTRIL ONCE DAILY Quantity: 16 Refills: 0 Ordered: 18-May-2020 DO Start : 18-May-2020 End : 19-Mar-2021 Complete End: 06-25-2020 take 1 spray(s) nasal route once daily fluticasone (FLONASE) 50 MCG/ACT nasal spray 1 spray by Each Nostril route daily 0 Active Flonase Active furosemide 20 mg oral tablet (20 sources) Loop Diuretic Start: 03-28-2024 40 mg, intrave nous, Once, On Thu03/28/24 at 2300, For 1 dose Start: 11-03-2022 End: 11-23-2025 take 1 tablet by mouth once daily Furosemide 20 mg tablet Discontinued 20 MG PO Daily May 23, 2025 12:00am May 24, 2025 1:38pm 1 ml heparin sodium, porcine 5000 unt/ml injection (1 source) Unfractionated Heparin, Anti-coagulant Start: 03-29-2024 End: 03-30-2024 inject 5000 [IU] by subcutaneous injection every eight hours 5,000 Units, subcutaneous, Every 8 hours, First dose on Thu03/29/24 at 1400, For 5 doses hydrALAZINE hydrochloride 25 mg oral tablet (20 sources) Arteriolar Vasodilator Start: 05-23-2025 End: 05-24-2025 take 1 tablet by mouth twice daily Hydralazine 25 mg tablet Discontinued 25 MG PO Twice daily May 23, 2025 12:00am May 24, 2025 1:39pm Start: 04-20-2023 End: 05-10-2025 take 1 tablet by mouth once daily Hydralazine 25 mg tablet Discontinued 25 MG PO Daily April 20, 2023 12:00am May 10, 2025 1:35pm Start: 01-08-2023 take 1 tablet by rhoda th every four hours as needed hydrALAZINE (APRESOLINE) 25 MG tablet Take 1 tablet by mouth every 4 hours as needed (for sbp > 180) 90 tablet 3 01/08/2023 Active Start: 11-07-2019 hydrALAZINE (A presoline) 25 mg tablet every 8 hours. 11/07/2019 Active Start: 11-07-2019 End: 06-04-2022 take 1 tablet by mouth every four hours as needed hydrALAZINE (APRESOLINE) 25 mg tablet TAKE 1 TABLET BY MOUTH NEEDED EVERY 4 HOURS WHEN YOUR SYSTOLIC BLOOD PRESSURE IS ABOVE 180 MMHG TAKE DIRECTED 11/07/2019 Active Start: 11-07-2019 hydrALAZINE HC l - 25 MG Oral Tablet Quantity: 90 Refills: 0 Ordered: 07-Nov-2019 DO Start : 07-Nov-2019 Active take 1 tablet by rhoda th every eight hours hydrALAZINE HCl 25 MG 1 tablet with food Orally Three times a day Active Comment on above: TAKE 1 TABLET BY RHODA TH NEEDED EVERY 4 HOURS WHEN YOUR SYSTOLIC BLOOD PRESSURE IS ABOVE 180 MMHG TAKE DIRECTED 0.5 ml HYDROmorphone hydrochloride 1 mg/ml prefilled syringe (2 sources) Opioid Agonist Start: 03-28-2024 End: 03-28-2024 0.2 mg, intravenous, Once, On Thu03/28/24 at 2300, For 1 dose Start: 03-28-2024 0.4 mg, intrav enous, Every 3 hours PRN, pain breakthrough, Starting on Thu03/28/24 at 1854 iopamidol (ISOVUE-370) 76 % injection 75 mL (1 source) Start: 04-17-2020 End: 04-17-2020 iopamidol (ISOVUE-370) 76 % injection 75 mL Ipratropium [place] 0.06 % Nasal Solution (4 sources) Anticholinergic Start: 08-30-2020 take 2 spray(s) nasal route three to four times daily Ipratropium [place] 0.06 % Nasal Solution USE 2 SPRAYS IN EACH NOSTRIL 3-4 TIMES DAILY. Quantity: 3 Refills: 3 Ordered: 30-Aug-2020 Garland Vincent MD Start : 30-Aug-2020 Active Start: 03-24-2020 End: 06-18-2021 take 2 spray(s) nasal route twice daily as needed ipratropium bromide (ATROVENT) 42 mcg (0.06 %) nasal spray USE 2 SPRAY(S) IN EACH NOSTRIL TWICE DAILY NEEDED FOR 30 DAYS 0 03/24/2020 06/18/2021 Discontinued (Discontinued by Patient) Start: 02-20-2020 take 2 spray(s) nasa l route twice daily as needed Ipratropium [place] 0.06 % 2 sprays in each nostril as needed Nasally Twice a day as needed for 30 days Feb, Not-Taking Start: 12-13-2019 take 2 spray(s) nasa l route twice daily Ipratropium [place] 0.03 % 2 sprays in each nostril Nasally Twice a day for 30 day(s) vasomotor rhinitis Nov, Not-Taking Comment on above: USE 2 SPRAY(S) IN EA CH NOSTRIL TWICE DAILY NEEDED FOR 30 DAYS iron sucrose (VENOFER) 300 mg in sodium chloride 0.9 % 250 mL IVPB (3 sources) Start: 05-16-2025 End: 05-16-2025 300 mg, IntraVENous, at 176.7 mL/hr, Administer over 90 Minutes, ONCE, On Thu05/16/25 at 1030, For 1 dose, Observe for signs and symptoms of hypersensitivity and/or anaphylactic-type reaction for at least 30 minutes following the end of administration and until clinically stable Start: 05-09-2025 End: 05-09-2025 300 mg, IntraVENous, at 176. 7 mL/hr, Administer over 90 Minutes, ONCE, On Thu05/09/25 at 1000, For 1 dose, Observe for signs and symptoms of hypersensitivity and/or anaphylactic-type reaction for at least 30 minutes following the end of administration and until clinically stable Start: 03-23-2025 End: 03-23-2025 300 mg, IntraVENous, at 176. 7 mL/hr, Administer over 90 Minutes, ONCE, On Thu03/23/25 at 2000, For 1 dose iron sucrose 300 mg in NaCl 0.9% 250 mL (VENOFER) (5 sources) Start: 04-24-2022 End: 04-30-2022 iron sucrose 300 mg in NaCl 0.9% 250 mL (VENOFER) Start: 04-24-2022 iron sucrose 3 00 mg in NaCl 0.9% 250 mL (VENOFER) 1 ml ketorolac tromethamine 15 mg/ml injection (1 source) Nonsteroidal Anti-inflammatory Drug, Cyclooxygenase Inhibitor Start: 03-28-2024 End: 03-28-2024 15 mg, intravenous, Once, On Thu03/28/24 at 1440, For 1 dose 10 ml lidocaine hydrochloride 10 mg/ml injection (1 source) Antiarrhythmic, Amide Local Anesthetic Start: 03-31-2022 End: 03-31-2022 lidocaine (PF) 10 mg/mL (1 %) 4 mL injection (XYLOCAINE) Start: 03-31-2022 End: 03-31-2022 lidocaine (PF) 10 mg/mL (1 % ) 4 mL injection (XYLOCAINE) losartan potassium 25 mg oral tablet (20 sources) Angiotensin 2 Receptor Nereyda Start: 05-23-2025 End: 05-24-2025 take 1 tablet by mouth once daily Losartan 25 mg tablet Discontinued 25 MG PO Daily May 23, 2025 12:00am May 24, 2025 1:39pm Start: 03-24-2025 take 1 tablet by rhoda th once daily losartan (COZAAR) 25 MG tablet Take 1 tablet by mouth daily 30 tablet 3 03/25/2025 Active Start: 09-07-2024 losartan (Coza ar) 50 MG tablet 09/07/2024 Active Start: 04-04-2020 take 100 mg by mouth once lindsey y 100 mg, Oral, DAILY, First dose on Thu04/04/20 at 0900 Hold for SBP <110 Start: 03-28-2020 Losartan [place] sium 100 MG Oral Tablet Quantity: 90 Refills: 0 Ordered: 28-Mar-2020 DO Start : 28-Mar-2020 Active Start: 02-04-2019 End: 04-06-2020 take 1 tablet by mouth once daily Losartan Potassium 100 MG Oral Tablet TAKE 1 TABLET DAILY. Quantity: 0 Refills: 0 Ordered: 28-Mar-2020 DO Start : 28-Mar-2020 Active Start: 12-01-2018 End: 07-08-2021 losartan (COZAAR) 50 MG tabl et Indications: Dysautonomia orthostatic hypotension syndrome , Chronic diastolic congestive heart failure (HCC) , History of DVT (deep vein thrombosis) , Cardiac pacemaker in situ , ASHD (arteriosclerotic heart disease) Take 1 tablet daily. Hold if SBP 90 tablet 3 04/10/2021 07/08/2021 Discontinued (Therapy completed) Comment on above: Take 50 mg by mouth. methylPREDNISolone (7 sources) Corticosteroid Start: 12-30-2021 End: 04-17-2022 methylPREDNISolone (MEDROL, MAMADOU,) 4 mg Dose-Pack Do not use NSAIDS while on dose pack. Use as instructed on package 21 tablet 0 12/30/2021 04/17/2022 Discontinued (Course of therapy completed) Start: 12-30-2021 methylPREDNISo lone (MEDROL, MAMADOU,) 4 mg Dose-Pack Do not use NSAIDS while on dose pack. Use as instructed on package 21 tablet 0 12/30/2021 Active Comment on above: Do not use NSAIDS wh ile on dose pack. Use as instructed on package 2 ml metoclopramide 5 mg/ml prefilled syringe (1 source) Dopamine-2 Receptor Antagonist Start: 04-26-2025 10 mg, IntraVENous, ONCE PRN, 1 dose, Starting on Thu04/26/25 at 1027, Until Discontinued, Nausea, Initial antiemetic therapy., PACU only Misc. Devices (FINGERTIP PULSE OXIMETER) MISC (6 sources) Start: 05-29-2017 End: 07-13-2019 Misc. Devices (FINGERTIP PULSE OXIMETER) MISC 1 Units by Does not apply route once for 1 dose 1 each 0 05/29/2017 07/13/2019 Discontinued Start: 05-29-2017 Misc. Devices (FINGERTIP PULSE OXIMETER) MISC 1 Units by Does not apply route once for 1 dose 1 each 0 05/29/2017 Active mupirocin 0.02 mg/mg topical ointment (10 sources) RNA Synthetase Inhibitor Antibacterial Start: 04-17-2022 mupirocin (BACTR OBAN) 2 % ointment Indications: Preop examination , Infection associated with internal right knee prosthesis, subsequent encounter Apply 0.5 inch with cotton swab (Q-tip) to each nostril in the morning and evening for 5 days prior to and including day of surgery. 22 g 0 04/17/2022 Suspended Start: 11-29-2021 Mupirocin 2 % External Ointment use intra nasally 3 days before surgery twice daily Quantity: 1 Refills: 0 Ordered: 29-Nov-2021 Tasia Child Start : 29-Nov-2021 Active Comment on above: Apply 0.5 inch with cotton swab (Q-tip) to each nostril in the morning and evening for 5 days prior to and including day of surgery. nitroglycerin 0.4 mg sublingual tablet (1 source) Nitrate Vasodilator Start: 04-02-20 0.4 mg, SubLINGual, EVERY 5 MIN PRN, 3 doses, Starting on Thu04/02/22 at 1558, Until Discontinued, Chest pain Place 1 tablet under tongue upon chest pain, wait 5 minutes and may repeat up to 3 doses in 15 minutes. Do not crush or break. olmesartan medoxomil 40 mg oral tablet (3 sources) Angiotensin 2 Receptor Nereyda Start: 11-30-19 End: 05-10-20 take 1 tablet by mouth once daily Olmesartan 40 mg tablet Discontinued 40 MG PO Daily November 29, 2024 12:00am May 10, 2025 1:35pm 2 ml ondansetron 2 mg/ml injection (1 source) Serotonin-3 Receptor Antagonist Start: 03-28-20 End: 03-28-20 4 mg, intravenous, Once, On Thu03/28/24 at 2315, For 1 dose, When administering via IV Push, administer over 3-5 minutes. pantoprazole 40 mg delayed release oral tablet (18 sources) Proton Pump Inhibitor Start: 04-20-20 End: 05-10-20 take 1 tablet by mouth once daily Pantoprazole 40 mg Tablet,Delayed Release (Dr/Ec) Discontinued 40 MG PO Daily April 20, 2023 12:00am May 10, 2025 1:35pm Start: 02-02-2023 pantoprazole D aily Start Date: 02/02/23 Status: Ordered potassium phosphates 15 mmol in dextrose 5% 250 mL IV (1 source) Start: 04-01-2024 End: 04-01-2024 15 mmol, intravenous, at 63.8 mL/hr, Administer over 4 Hours, Once, On Thu04/01/24 at 0930, For 1 dose, Each 3 mmol contains 4.4 mEq potassium. prochlorperazine 5 mg/ml injectable solution (2 sources) Phenothiazine Start: 04-26-2025 5 mg, IntraVEN ous, ONCE PRN, 1 dose, Starting on Thu04/26/25 at 1027, Until Discontinued, Nausea, Secondary antiemetic therapy., PACU only Start: 03-29-2024 take 1 tablet by rhoda th every six hours as needed prochlorperazine (Compazine) tablet 10 mg regadenoson (LEXISCAN) injection 0.4 mg (1 source) Start: 04-03-2022 End: 04-03-2022 regadenoson (LEXISCAN) injection 0.4 mg sotalol hydrochloride 120 mg oral tablet (20 sources) Antiarrhythmic Start: 05-26-2020 Sotalol HCl - 120 MG Oral Tablet Quantity: 60 Refills: 0 Ordered: 26-May-2020 DO Start : 26-May-2020 Active Start: 04-07-2020 End: 07-08-2021 take 1 tablet by mouth once daily sotalol (BETAPACE) 120 mg tablet Take 120 mg by mouth once daily. 0 05/26/2020 06/20/2021 Discontinued Start: 04-07-2020 take 1 tablet by rhoda th once daily sotalol (BETAPACE) 120 MG tablet Take 1 tablet by mouth daily 60 tablet 3 04/07/2020 Active Start: 04-03-2020 End: 04-05-2020 sotalol (BETAPACE) tablet 12 0 mg Comment on above: Take 120 mg by mouth once daily. sucralfate 100 mg/ml oral suspension (7 sources) Aluminum Complex Start: 2 take 10 mL by mouth four times daily at bedtime sucralfate (CARAFATE) 100 mg/mL suspension TAKE 10 ML BY MOUTH 4 TIMES DAILY BEFORE MEAL(S) AND AT BEDTIME FOR 7 DAYS 0 04/10/2022 Suspended Comment on above: TAKE 10 ML BY MOUTH 4 TIMES DAILY BEFORE MEAL(S) AND AT BEDTIME FOR 7 DAYS technetium sestamibi (CARDIOLITE) injection 10 millicurie (1 source) Start: 2 End: 2 technetium sestamibi (CARDIOLITE) injection 10 millicurie technetium sestamibi (CARDIOLITE) injection 30 millicurie (1 source) Start: 2 End: 2 technetium sestamibi (CARDIOLITE) injection 30 millicurie therapeutic multivitamin-minerals (THERA-M PLUS) 9 mg iron-400 mcg tablet (7 sources) Start: 1 End: 2 therapeutic multivitamin-minerals (THERA-M PLUS) 9 mg iron-400 mcg tablet Take 1 tablet by mouth once daily. 30 tablet 06/20/2021 04/17/2022 Discontinued (Course of therapy completed) Start: 06-20-2021 End: 04-17-2022 therapeutic multivitamin-min erals (THERA-M PLUS) 9 mg iron-400 mcg tablet Take 1 tablet by mouth once daily. 30 tablet 0 06/20/2021 04/17/2022 Discontinued (Course of therapy completed) Start: 06-20-2021 therapeutic mu ltivitamin-minerals (THERA-M PLUS) 9 mg iron- 400 mcg tablet Take 1 tablet by mouth once daily. 30 tablet 0 06/20/2021 Active Comment on above: Take 1 tablet by rhoda th once daily. 10 ml tranexamic acid 100 mg/ml injection (1 source) Antifibrinolytic Agent Start: 5 End: 5 apply 1 dose topically once 1,000 mg, Topical, ONCE, 1 dose, On Thu03/20/25 at 1330 Start: 03-20-2025 End: 03-20-2025 apply 1 dose topically once 1,000 mg, Topical, ONCE, 1 dose, On Thu03/20/25 at 1330 triamcinolone acetonide 1 mg/ml topical cream (20 sources) Corticosteroid Start: 05-12-2024 End: 12-07-2024 triamcinolone (Kenalog) 0.1 % cream Indications: Other specified dermatitis Apply to affected areas, up to twice a day when flared, do not use one the face, groin, or underarms, 30 day supply 454 g 1 05/12/2024 12/07/2024 Discontinued Start: 03-23-2022 triamcinolone acetonide (KENALOG) 0.1 % cream APPLY TO AFFECTED AREAS ON THE BACK TOPICALLY WHEN FLARED TWICE DAILY. (AVOID THE FACE, ARMPITS AND GROIN) 03/23/2022 Active Start: 12-23-2021 triamcinolone Top 0.1% Crm 80 gram Refill(s) 0 Start Date: 12/23/21 Status: Ordered Start: 12-23-2021 triamcinolone Top 0.1% Crm 80 gram Refill(s) 0 Start Date: 12/23/21 Status: Ordered Start: 02-02-2020 End: 04-03-2020 triamcinolone (KENALOG) 0.1 % cream Apply 1 applicator topically See Admin Instructions 0 02/02/2020 04/03/2020 Discontinued Comment on above: APPLY TO AFFECTED AR EAS ON THE BACK TOPICALLY WHEN FLARED TWICE DAILY. (AVOID THE FACE, ARMPITS AND GROIN) 200 ml vancomycin 5 mg/ml injection (11 sources) Glycopeptide Antibacterial Start: 022 End: 022 take 1 g intravenously every twenty-four hours vancomycin (VANCOCIN) 1-5 GM/200ML-% SOLN Infuse 1 g intravenously every 24 hours 0 05/07/2022 06/04/2022 Discontinued (Therapy completed) Start: 05-07-2022 End: 05-15-2022 inject 1000 mg intravenously once daily vancomycin (VANCOCIN) 1 g injection Infuse 1,000 mg intravenously daily 0 05/07/2022 05/15/2022 Discontinued (LIST CLEANUP) Comment on above: Inject 200 mL intrav enously q 24 HR for 28 days. warfarin sodium 5 mg oral tablet (20 sources) Vitamin K Antagonist Start: 02-20-2025 End: 03-21-2025 warfarin (COUMADIN) 5 MG tablet Take 1 tablet by mouth See Admin Instructions Coumadin Clinic half tablet for .5 mg MF and 5 mg tablet all other days 72 tablet 3 02/20/2025 03/21/2025 Discontinued (LIST CLEANUP) Start: 04-20-2023 End: 11-29-2024 Warfarin 7.5 mg tablet Disco ntinued 7.5 MG PO As Directed April 20, 2023 12:00am November 29, 2024 6:37pm Start: 04-02-2022 warfarin (COUM DEVANG) tablet 7.5 mg Start: 10-10-2021 End: 04-04-2022 warfarin (COUMADIN) 5 mg tab let Take 5 mg by mouth once daily. M-W FR 7.5 mg Sun Tues Thur Sat 5 mg 10/10/2021 Active Start: 04-14-2020 Warfarin Sodiu m 5 MG Oral Tablet 7.5 mg M, W, F; 5 mg T, TH, Sa, [place] Quantity: 0 Refills: 0 Ordered: 14-Apr-2020 DO Start : 14-Apr-2020 Active Start: 04-06-2020 End: 04-07-2020 warfarin (COUMADIN) tablet 7 .5 mg Start: 04-03-2020 warfarin (COUM DEVANG) tablet 10 mg Start: 08-13-2016 End: 06-01-2021 take 1 tablet by mouth once daily warfarin (COUMADIN) 5 MG tablet Indications: PAF (paroxysmal atrial fibrillation) ([facility]LY [facility]) Take 1 tablet by mouth daily Coumadin Clinic: 7.5 mg MWF and 5 mg all other days 90 tablet 3 04/11/2021 Active Comment on above: Take 5 mg by mouth. Take 5 mg by mouth o nce daily. M-W FR 7.5 mg Sun ur Sat 5 mg Take 1 tablet by rhoda once daily. Thursday, Thursday, Thursday, , Thursday and Thursday Problems Active Problems Problem Classification Problem Date Documented Da te Episodic/Chronic Abdominal hernia (20 sources) Hiatal hernia; Translations: [Diaphragmatic hernia without mention of obstruction or gangrene] Onset: 2 04-17-2022 Episodic Acute and unspecified renal failure (20 sources) Acute renal failure syndrome; Translations: [Acute kidney failure, unspecified] Onset: 7 Resolved: 4 04-25-2018 Episodic Aortic; peripheral; and visceral artery aneurysms (20 sources) Aortic aneurysm of unspecified site, without rupture; Translations: [Dissection of aorta] Onset: 4 12-16-2023 Chronic Asthma (20 sources) Asthma; Translations: [Unspecified asthma, uncomplicated] Onset: 2 06-21-2012 Chronic Cancer of breast (2 sources) History of malignant neoplasm of breast; Translations: [Personal history of malignant neoplasm of breast] Episodic Cancer; other and unspecified primary (20 sources) H/O: malignant neoplasm; Translations: [Personal history of unspecified malignant neoplasm] Episodic Cardiac dysrhythmias (20 sources) Sick sinus syndrome; Translations: [Persistent sinus bradycardia] Onset: 2 Resolved: 0 03-07-2017 Chronic Cardiac dysrhythmias (20 sources) Tachycardia; Translations: [Tachycardia, unspecified] Onset: 2 Resolved: 0 04-18-2020 Episodic Chronic kidney disease (20 sources) Chronic kidney disease; Translations: [Chronic kidney disease, unspecified] Onset: 7 03-10-2017 Chronic Chronic kidney disease (1 source) Chronic kidney disease; Translations: [Chronic kidney disease, stage 3 unspecified ([facility])] Onset: 5 Chronic obstructive pulmonary disease and bronchiectasis (20 sources) Centriacinar emphysema; Translations: [Moderate chronic obstructive pulmonary disease] Onset: 1 Resolved: 4 05-04-2018 Chronic Chronic ulcer of skin (13 sources) Non-pressure chronic ulcer of unspecified part of left lower leg limited to breakdown of skin; Translations: [Ulcer of lower limb, unspecified] Onset: 5 12-14-2024 Chronic Coagulation and hemorrhagic disorders (20 sources) Disorder of hemostatic system; Translations: [Other and unspecified coagulation defects] Onset: 8 12-17-2017 Chronic Conduction disorders (20 sources) Presence of cardiac pacemaker; Translations: [Cardiac pacemaker in situ] Onset: 7 Resolved: 0 04-14-2017 Chronic Congestive heart failure; nonhypertensive (20 sources) Chronic diastolic heart failure; Translations: [Chronic diastolic (congestive) heart failure] Onset: 5 06-14-2018 Chronic Coronary atherosclerosis and other heart disease (20 sources) Atherosclerotic heart disease of [place] coronary artery with unspecified angina pectoris; Translations: [Angina pectoris, unspecified] Onset: 2 Resolved: 0 07-05-2012 Chronic Coronary atherosclerosis and other heart disease (20 sources) Presence of coronary angioplasty implant and graft; Translations: [History of placement of stent for coronary artery disease] Onset: 5 05-04-2018 Episodic Deficiency and other anemia (4 sources) Anemia co-occurrent and due to chronic kidney disease stage 3; Translations: [Anemia due to stage 3 chronic kidney disease, unspecified whether stage 3a or 3b CKD ([facility])] 05-09-2025 Chronic Deficiency and other anemia (1 source) Anemia in chronic kidney disease; Translations: [Anemia in chronic kidney disease] Onset: 5 Chronic Deficiency and other anemia (1 source) Anemia; Translations: [Anemia, unspecified] 03-20-2025 Episodic Deficiency and other anemia (14 sources) Chronic anemia; Translations: [Anemia, unspecified] Onset: 5 03-24-2025 Episodic Diabetes mellitus without complication (20 sources) Prediabetes; Translations: [High hemoglobin A1c level] Onset: 1 Episodic Disorders of lipid metabolism (20 sources) Mixed hyperlipidemia; Translations: [Mixed hyperlipidemia] Onset: 3 04-01-2024 Chronic Diverticulosis and diverticulitis (13 sources) Diverticular disease; Translations: [Diverticulosis of intestine, part unspecified, without perforation or abscess without bleeding] Onset: 1 Resolved: 4 04-01-2024 Chronic Esophageal disorders (20 sources) Laryngopharyngeal reflux; Translations: [Other diseases of larynx, not elsewhere classified] Onset: 1 Chronic Essential hypertension (20 sources) Hypertensive disorder; Translations: [Essential hypertension] Onset: 8 Resolved: 0 07-27-2018 Chronic Genitourinary symptoms and ill-defined conditions (20 sources) Mixed incontinence; Translations: [Incontinence] Onset: 2 Chronic Genitourinary symptoms and ill-defined conditions (20 sources) H/O: urinary anomaly; Translations: [Personal history of other specified urinary system disorders] Onset: 2 Episodic Headache; including migraine (3 sources) Migraine with aura; Translations: [Migraine with aura, not intractable, without status migrainosus] 11-29-2024 Chronic Mood disorders (20 sources) Depressive disorder; Translations: [Major depressive disorder, single episode, unspecified] Onset: 4 01-27-2024 Chronic Mycoses (15 sources) Mycosis; Translations: [Other and unspecified mycoses] Episodic Nutritional deficiencies (20 sources) Nutritional marasmus; Translations: [Unspecified severe protein-calorie malnutrition] Onset: 8 Resolved: 0 06-15-2018 Chronic Open wounds of extremities (20 sources) Tear of skin; Translations: [Laceration without foreign body of left elbow, initial encounter] Onset: 3 Resolved: 4 Episodic Osteoarthritis (20 sources) Osteoarthritis of knee; Translations: [Unilateral primary osteoarthritis, right knee] Onset: 3 12-16-2023 Chronic Osteoporosis (5 sources) Osteoporosis; Translations: [Age-related osteoporosis without current pathological fracture] Onset: 4 01-13-2025 Chronic Other aftercare (1 source) Long-term 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 antibiotics for prevention of recurrent infection; Translations: [retirement (current) use of antibiotics] Episodic Other aftercare (1 source) 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; 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] Episodic Other aftercare (1 source) Aspirin therapy finding; 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] Episodic Other aftercare (20 sources) Long-term 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 drug therapy; Translations: [Other fdc (current) drug therapy] Onset: 4 01-21-2024 Episodic Other aftercare (2 sources) Removal of sutures done; Translations: [Encounter for removal of sutures]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 surgery status] 03-28-2024 Episodic Other infections; including parasitic (20 sources) Disorder due to infection; Translations: [Unspecified infectious disease] Onset: 05-29-2021 05-29-2021 Episodic Other lower respiratory disease (20 sources) Solitary nodule of lung; Translations: [Solitary pulmonary nodule] Onset: 05-17-2015 Resolved: 04-04-2020 05-17-2015 Episodic Other lower respiratory disease (20 sources) Chronic cough; Translations: [Cough] Onset: 06-21-2012 Resolved: 04-04-2020 06-21-2012 Episodic Other lower respiratory disease (5 sources) Lung mass; Translations: [Solitary pulmonary nodule] Onset: 12-14-2023 04-01-2024 Episodic Other lower respiratory disease (1 source) Dyspnea, unspecified; Translations: [Dyspnea, unspecified] Onset: 12-08-2024 Episodic Other nervous system disorders (20 sources) Dysphasia; Translations: [Dysphasia] Onset: 12-16-2023 12-16-2023 Episodic Other non-traumatic joint disorders (15 sources) Knee pain; Translations: [Pain in right knee] Onset: 06-14-2018 Resolved: 04-04-2020 06-14-2018 Episodic Other non-traumatic joint disorders (20 sources) Pain in right knee; Translations: [Pain in joint, lower leg] Onset: 06-14-2018 Resolved: 04-04-2020 04-04-2020 Episodic Other non-traumatic joint disorders (20 sources) Effusion of joint of left knee; Translations: [Effusion, left knee] Onset: 03-24-2020 03-25-2020 Episodic Other non-traumatic joint disorders (1 source) Pain in unspecified knee; Translations: [Knee pain, unspecified chronicity, unspecified laterality] Onset: 02-12-2022 Episodic Other non-traumatic joint disorders (1 source) Pain in left wrist; Translations: [Pain in left wrist] Onset: 12-30-2021 Episodic Other nutritional; endocrine; and metabolic disorders (20 sources) Obese class I; Translations: [Obesity, unspecified] Onset: 05-17-2015 Resolved: 04-04-2020 04-04-2020 Chronic Other nutritional; endocrine; and metabolic disorders (20 sources) Adult failure to thrive syndrome; Translations: [Adult failure to thrive] Onset: 12-30-2023 01-05-2024 Episodic Other nutritional; endocrine; and metabolic disorders (14 sources) Obese class I; Translations: [Obesity (BMI 30.0-34.9)] Onset: 05-17-2015 Resolved: 04-04-2020 03-07-2017 Other skin disorders (20 sources) Disorder of skin of upper limb; Translations: [Disorder of the skin and subcutaneous tissue, unspecified] Onset: 12-16-2023 12-16-2023 Episodic Other skin disorders (20 sources) Mass of subcutaneous tissue of left lower leg; Translations: [Localized swelling, mass and lump, left lower limb] Onset: 12-16-2023 12-16-2023 Episodic Other skin disorders (4 sources) Actinic keratosis; Translations: [Actinic keratosis] Onset: 04-01-2024 04-01-2024 Episodic Other upper respiratory infections (5 sources) Acute maxillary sinusitis, unspecified; Translations: [Acute maxillary sinusitis] Onset: 04-01-2024 Resolved: 04-01-2024 Episodic Phlebitis; thrombophlebitis and thromboembolism (20 sources) H/O: Deep vein thrombosis; Translations: [Personal history of other venous thrombosis and embolism] Onset: 12-17-2011 04-18-2020 Episodic Pneumonia (except that caused by tuberculosis or sexually transmitted disease) (20 sources) Pneumonia; Translations: [Pneumonia, unspecified organism] Onset: 02-04-2023 Resolved: 04-01-2024 04-01-2024 Episodic Poisoning by other medications and drugs (20 sources) Adverse reaction to drug; Translations: [Adverse effect of unspecified drugs, medicaments and biological substances, initial encounter] Onset: 02-14-2020 Resolved: 04-04-2020 02-14-2020 Episodic Pulmonary heart disease (20 sources) Personal history of pulmonary embolism; Translations: [H/O: pulmonary embolus] Onset: 03-12-2017 05-04-2018 Episodic Residual codes; unclassified (20 sources) Hereditary disorder of endocrine system; Translations: [Genetic susceptibility to other disease] Onset: 03-22-2015 Episodic Residual codes; unclassified (20 sources) Persistent insomnia; Translations: [Insomnia, unspecified] Onset: 12-16-2023 12-16-2023 Episodic Residual codes; unclassified (4 sources) Genetic predisposition; Translations: [Genetic susceptibility to other disease] Onset: 03-22-2015 04-01-2024 Episodic Residual codes; unclassified (1 source) Genetic susceptibility to other disease; Translations: [Genetic susceptibility to other disease] Onset: 04-25-2018 Episodic Residual codes; unclassified (1 source) Personal history of other specified conditions; Translations: [Personal history of other specified conditions] Onset: 07-08-2024 Episodic Screening and history of mental health and substance abuse codes (17 sources) Tobacco use and exposure - finding; Translations: [Personal history of nicotine dependence] Onset: 12-17-2017 12-17-2017 Episodic Skin and subcutaneous tissue infections (14 sources) Cellulitis of right lower limb; Translations: [Cellulitis of leg, right] Onset: 06-14-2018 Resolved: 04-04-2020 06-14-2018 Sprains and strains (20 sources) Strain of knee; Translations: [Strain of unspecified muscle(s) and tendon(s) at lower leg level, right leg, initial encounter] Onset: 11-29-2018 Resolved: 04-04-2020 11-29-2018 Episodic Unclassified (14 sources) Treadmill stress test negative for angina pectoris; Translations: [Treadmill stress test negative for angina pectoris] Onset: 06-28-2012 Resolved: 12-27-2012 12-27-2012 Urinary tract infections (20 sources) Urinary tract infectious disease; Translations: [Urinary tract infection, site not specified] Onset: 06-15-2018 Resolved: 04-04-2020 06-15-2018 Episodic Results Test Name Value Interpretation Reference Range Facility CBCon 05-23-2025 Erythrocyte distribution width (RBC) [Ratio] 18.9 % High 11.8-14.4 [facility] Comment on above: Performed By: #### U MYAH UA #### [facility] [address] [place] [address] Blade Aligner: Renan Huerta MD Hematocrit (Bld) [Volume fraction] 26.4 % Low 36.3-47.1 [facility] Comment on above: Performed By: #### U MYAH, UA #### [facility] [address] [place] [address] [place] [place], [place] [id number] Blade Aligner: Renan Huerta MD Hemoglobin (Bld) [Mass/Vol] 8.5 g/dL Low 11.9-15.1 [facility] Comment on above: Performed By: #### U MYAH, UA #### [facility] [address] [place] [address] [place] [place], [place] [id number] Blade Aligner: Renan Huerta MD MCH (RBC) [Entitic mass] 30.8 pg Normal 25.2-33.5 [facility] Comment on above: Performed By: #### Irving GLASGOW UA #### [address] [place] [id number] Blade Aligner: Renan Huerta MD MCHC (RBC) [Mass/Vol] 32.2 g/dL Normal 28.4-34.8 [facility] Comment on above: Performed By: #### Irving GLASGOW, UA #### [address] [place], [place] [id number] Blade Aligner: Renan Huerta MD MCV (RBC) [Entitic vol] 95.7 fL Normal 82.6-102.9 [facility] Comment on above: Performed By: #### Irving GLASGOW, UA #### [facility] [address] [place] [address] [place] [place], [place] [id number] Blade Aligner: Renan Huerta MD NRBC Automated 0.0 per 100 WBC Normal 0.0 [facility] Comment on above: Performed By: #### Irving GLASGOW, UA #### [address] [place] [address] Blade Aligner: Renan Huerta MD Platelet mean volume (Bld) [Entitic vol] 9.8 fL Normal 8.1-13.5 [facility] Comment on above: Performed By: #### U RAMOO, UA #### [facility] [address] [place] [address] Blade Aligner: Renan Huerta MD Platelets (Bld) [#/Vol] 173 10*3/uL Normal 138-453 [facility] Comment on above: Performed By: #### U RAMOO, UA #### [facility] [address] [place] [address] Blade Aligner: Renan Huerta MD RBC (Bld) [#/Vol] 2.76 10*6/uL Low 3.95-5.11 [facility] Comment on above: Performed By: #### U MYAH, UA #### [facility] [address] [place] [address] Blade Aligner: Renan Huerta MD WBC (Bld) [#/Vol] 4.8 10*3/uL Normal 3.5-11.3 [facility] Comment on above: Performed By: #### U RAMOO, UA #### [facility] [address] [place] [address] Blade Aligner: Renan Huerta MD CBCon 05-16-2025 Erythrocyte distribution width (RBC) [Ratio] 18.7 % High 11.8 - 14.4 % [facility] Hematocrit (Bld) [Volume fraction] 28.9 % Low 36.3 - 47.1 % [facility] Hemoglobin (Bld) [Mass/Vol] 9.1 g/dL Low 11.9 - 15.1 g/dL [facility] Interpretation and review of laboratory results Abnormal [facility] MCH (RBC) [Entitic mass] 29.7 pg 25.2 - 33.5 pg [facility] MCHC (RBC) [Mass/Vol] 31.5 g/dL 28.4 - 34.8 g/dL [facility] MCV (RBC) [Entitic vol] 94.4 fL 82.6 - 102.9 fL [facility] Nucleated RBC/100 WBC (Bld) [Ratio] 0.0 % 0.0 per 100 WBC [facility] Platelet mean volume (Bld) [Entitic vol] 8.7 fL 8.1 - 13.5 fL [facility] Platelets (Bld) [#/Vol] 218 10*3/uL [facility] RBC (Bld) [#/Vol] 3.06 10*6/uL Low 3.95 - 5.11 m/uL [facility] WBC other (Bld) [#/Vol] 4.7 B on [facility] Erythrocyte distribution width (RBC) [Ratio] 18.7 % High 11.8-14.4 [facility] Comment on above: Performed By: #### C BC #### [address] [place] [address] Blade Aligner: Renan Huerta MD Hematocrit (Bld) [Volume fraction] 28.9 % Low 36.3-47.1 [facility] Comment on above: Performed By: #### C BC #### [address] [place] [address] Blade Aligner: Renan Huerta MD Hemoglobin (Bld) [Mass/Vol] 9.1 g/dL Low 11.9-15.1 [facility] Comment on above: Performed By: #### C BC #### [address] [place] [address] Blade Aligner: Renan Huerta MD MCH (RBC) [Entitic mass] 29.7 pg Normal 25.2-33.5 [facility] Comment on above: Performed By: #### C BC #### [address] [place] [address] Blade Aligner: Renan Huerta MD MCHC (RBC) [Mass/Vol] 31.5 g/dL Normal 28.4-34.8 [facility] Comment on above: Performed By: #### C BC #### [facility] [address] [place], [place] [id number] Blade Aligner: Renan Huerta MD MCV (RBC) [Entitic vol] 94.4 fL Normal 82.6-102.9 [facility] Comment on above: Performed By: #### C BC #### [facility] [address] [place] [id number] Blade Aligner: Renan Huerta MD NRBC Automated 0.0 per 100 WBC Normal 0.0 [facility] Comment on above: Performed By: #### C BC #### [address] [place], [place] 3080583 Blade Aligner: Renan Huerta MD Platelet mean volume (Bld) [Entitic vol] 8.7 fL Normal 8.1-13.5 [facility] Comment on above: Performed By: #### C BC #### [address] [place], [place] [id number] Blade Aligner: Renan Huerta MD Platelets (Bld) [#/Vol] 218 10*3/uL Normal 138-453 [facility] Comment on above: Performed By: #### C BC #### [address] [place], [place] 8363283 Blade Aligner: Renan Huerta MD RBC (Bld) [#/Vol] 3.06 10*6/uL Low 3.95-5.11 [facility] Comment on above: Performed By: #### C BC #### [address] [place], [place] [id number] Blade Aligner: Renan Huerta MD WBC (Bld) [#/Vol] 4.7 10*3/uL Normal 3.5-11.3 [facility] Comment on above: Performed By: #### C BC #### [facility] [address] [place] [address] [place] [place], [place] [id number] Blade Aligner: Renan Huerta MD CBC with Auto Differentialon 05-09-2025 Basophils (Bld) [#/Vol] 0.00 10*3/uL [facility] Basophils/100 WBC (Bld) 0 % 0 - 2 % B on [facility] Eosinophils (Bld) [#/Vol] 0.00 10*3/uL [facility] Eosinophils/100 WBC (Bld) 0 % Low 1 - 4 % [facility] Erythrocyte distribution width (RBC) [Ratio] 19.0 % High 11.8 - 14.4 % [facility] Hematocrit (Bld) [Volume fraction] 27.6 % Low 36.3 - 47.1 % [facility] Hemoglobin (Bld) [Mass/Vol] 8.7 g/dL Low 11.9 - 15.1 g/dL [facility] Immature granulocytes (Bld) [#/Vol] 0.00 10*3/uL [facility] Immature granulocytes/100 WBC (Bld) 0 % 0 [facility] Interpretation and review of laboratory results Abnormal [facility] Lymphocytes/100 WBC (Bld) 13 % Low 24 - 43 % [facility] Lymphocytes/100 WBC (Bld) 0.59 % Low [facility] MCH (RBC) [Entitic mass] 29.6 pg 25.2 - 33.5 pg [facility] MCHC (RBC) [Mass/Vol] 31.5 g/dL 28.4 - 34.8 g/dL [facility] MCV (RBC) [Entitic vol] 93.9 fL 82.6 - 102.9 fL [facility] Monocytes/100 WBC (Bld) 6 % 3 - 12 % B on [facility] Monocytes/100 WBC (Bld) 0.27 % [facility] Morphology Davi (Bld) [Interp] Normal [facility] Neutrophils/100 WBC (Bld) 81 % High 36 - 65 % [facility] Nucleated RBC/100 WBC (Bld) [Ratio] 0.0 % 0.0 per 100 WBC [facility] Platelet mean volume (Bld) [Entitic vol] 9.8 fL 8.1 - 13.5 fL [facility] Platelets (Bld) [#/Vol] 182 10*3/uL [facility] RBC (Bld) [#/Vol] 2.94 10*6/uL Low 3.95 - 5.11 m/uL [facility] Segmented neutrophils/100 WBC (Bld) 3.64 % [facility] WBC other (Bld) [#/Vol] 4.5 B on [facility] CBC with Diffon 05-09-2025 Abs. Basophil 0.00 k/uL Normal 0.0-0.2 [facility] Comment on above: Performed By: #### C DP, CMPX, PT #### [address] [place] [address] Blade Aligner: Renan Huerta MD Abs.Imm.Granulocyte 0.00 k/uL Normal 0.00-0.30 [facility] Comment on above: Performed By: #### C DP, CMPX, PT #### [address] [place] [id number] Blade Aligner: Renan Huerta MD Abs.Neutrophil (Seg) 3.64 k/uL Normal 1.50-8.10 [facility] Comment on above: Performed By: #### C DP, CMPX, PT #### [address] [place], [facility]83 Blade Aligner: Renan Huerta MD Basophils/100 WBC (Bld) 0 % Normal 0-2 [facility] Comment on above: Performed By: #### C DP, CMPX, PT #### [address] [place] [address] Blade Aligner: Rnean Huerta MD Eosinophils (Bld) [#/Vol] 0.00 10*3/uL Normal 0.00-0.44 [facility] Comment on above: Performed By: #### C DP, CMPX, PT #### [facility] [address] [place] [address] Blade Aligner: Renan Huerta MD Eosinophils/100 WBC (Bld) 0 % Low 1-4 [facility] Comment on above: Performed By: #### C DP, CMPX, PT #### [facility] [address] [place] [address] Blade Aligner: Renan Huerta MD Immature granulocytes/100 WBC (Bld) 0 % Normal 0 [facility] Comment on above: Performed By: #### C DP, CMPX, PT #### [address] [place], [place] [address] Blade Aligner: Renan Huerta MD Lymphocytes (Bld) [#/Vol] 0.59 10*3/uL Low 1.10-3.70 [facility] Comment on above: Performed By: #### C DP, CMPX, PT #### [facility] [address] [place] [address] Dr. [place], [facility]83 Blade Aligner: Renan Huerta MD Lymphocytes/100 WBC (Bld) 13 % Low 24-43 [facility] Comment on above: Performed By: #### C DP, CMPX, PT #### [address] [place], [facility]83 Blade Aligner: Renan Huerta MD Monocytes (Bld) [#/Vol] 0.27 10*3/uL Normal 0.10-1.20 [facility] Comment on above: Performed By: #### C DP, CMPX, PT #### [facility] [address] [place] [address] Dr. [place], [facility]83 Blade Aligner: Renan Huerta MD Monocytes/100 WBC (Bld) 6 % Normal 3-12 [facility] Comment on above: Performed By: #### C DP, CMPX, PT #### [facility] [address] [place] [address] Dr. [place], [facility]83 Blade Aligner: Renan Huerta MD Morphology Davi (Bld) [Interp] Normal Normal [facility] Comment on above: Performed By: #### C DP, CMPX, PT #### [address] [place], [place] [id number] Blade Aligner: Renan Huerta MD Neutrophil (Seg) 81 % High 36-65 [facility] Comment on above: Performed By: #### C DP, CMPX, PT #### [address] [place], [place] [id number] Blade Aligner: Renan Huerta MD Erythrocyte distribution width (RBC) [Ratio] 19.0 % High 11.8-14.4 [facility] Comment on above: Performed By: #### C DP, CMPX, PT #### [address] [place], [facility]83 Blade Aligner: Renan Huerta MD Hematocrit (Bld) [Volume fraction] 27.6 % Low 36.3-47.1 [facility] Comment on above: Performed By: #### C DP, CMPX, PT #### [address] [place], [place] 1390783 Blade Aligner: Renan Huerta MD Hemoglobin (Bld) [Mass/Vol] 8.7 g/dL Low 11.9-15.1 [facility] Comment on above: Performed By: #### C DP, CMPX, PT #### [address] [place], [place] 4493883 Blade Aligner: Renan Huerta MD MCH (RBC) [Entitic mass] 29.6 pg Normal 25.2-33.5 [facility] Comment on above: Performed By: #### C DP, CMPX, PT #### [address] [place] [address] Blade Aligner: Renan Huerta MD MCHC (RBC) [Mass/Vol] 31.5 g/dL Normal 28.4-34.8 [facility] Comment on above: Performed By: #### C DP, CMPX, PT #### [facility] [address] [place] [address] [place], [place] [id number] Blade Aligner: Renan Huerta MD MCV (RBC) [Entitic vol] 93.9 fL Normal 82.6-102.9 [facility] Comment on above: Performed By: #### C DP, CMPX, PT #### [address] [place] [address] Blade Aligner: Renan Huerta MD NRBC Automated 0.0 per 100 WBC Normal 0.0 [facility] Comment on above: Performed By: #### C DP, CMPX, PT #### [address] [place], [facility]83 Blade Aligner: Renan Huerta MD Platelet mean volume (Bld) [Entitic vol] 9.8 fL Normal 8.1-13.5 [facility] Comment on above: Performed By: #### C DP, CMPX, PT #### [address] [place] [address] Blade Aligner: Renan Huerta MD Platelets (Bld) [#/Vol] 182 10*3/uL Normal 138-453 [facility] Comment on above: Performed By: #### C DP, CMPX, PT #### [address] [place] [address] Blade Aligner: Renan Huerta MD RBC (Bld) [#/Vol] 2.94 10*6/uL Low 3.95-5.11 [facility] Comment on above: Performed By: #### C DP, CMPX, PT #### [address] [place], [place] 6488583 Blade Aligner: Renan Huerta MD WBC (Bld) [#/Vol] 4.5 10*3/uL Normal 3.5-11.3 [facility] Comment on above: Performed By: #### C DP, CMPX, PT #### [facility] [address] [place], [place] [id number] Blade Aligner: Renan Huerta MD Comp Metabolic Profon 2024 Albumin [Mass/Vol] 3.3 g/dL Low 3.5-5.2 [facility] Comment on above: Performed By: #### C DP, CMPX, PT #### [facility] [address] [place], [place] 9846983 Blade Aligner: Renan Huerta MD Albumin/Glob Ratio 1.4 Normal 1.0-2.5 [facility] Comment on above: Performed By: #### C DP, CMPX, PT #### [facility] [address] [place] [address] Blade Aligner: Renan Huerta MD Alkaline Phos 53 U/L Normal 35-104 [facility] Comment on above: Performed By: #### C DP, CMPX, PT #### [address] [place], [place] 0626683 Blade Aligner: Renan Huerta MD ALT [Catalytic activity/Vol] 14 U/L Normal 10-35 [facility] Comment on above: Performed By: #### C DP, CMPX, PT #### [facility] [address] [place] [address] Blade Aligner: Renan Huerta MD Anion gap [Moles/Vol] 11 mmol/L Normal 9-16 [facility] Comment on above: Performed By: #### C DP, CMPX, PT #### [facility] [address] [place], [place] 28[address]83 Blade Aligner: Renan Huerta MD AST [Catalytic activity/Vol] 33 U/L Normal 10-35 [facility] Comment on above: Performed By: #### C DP, CMPX, PT #### [facility] [address] [place], [place] 743[address]83 Blade Aligner: Renan Huerta MD Bilirubin [Mass/Vol] 0.5 mg/dL Normal 0.00-1.20 [facility] Comment on above: Performed By: #### C DP, CMPX, PT #### [facility] [address] [place], [place] 2696083 Blade Aligner: Renan Huerta MD BUN/CRE Ratio 13 Normal 9-20 [facility] Comment on above: Performed By: #### C DP, CMPX, PT #### [facility] [address] [place], [place] 7508683 Blade Aligner: Renan Huerta MD Calcium [Mass/Vol] 8.3 mg/dL Low 8.6-10.4 [facility] Comment on above: Performed By: #### C DP, CMPX, PT #### [facility] [address] [place], [place] 1179183 Blade Aligner: Renan Huerta MD Chloride [Moles/Vol] 105 mmol/L Normal 98-107 [facility] Comment on above: Performed By: #### C DP, CMPX, PT #### [facility] [address] [place], [place] 6212683 Blade Aligner: Renan Huerta MD CO2 [Moles/Vol] 21 mmol/L Normal 20-31 [facility] Comment on above: Performed By: #### C DP, CMPX, PT #### [facility] [address] [place] [address] Blade Aligner: Renan Huerta MD Creatinine [Mass/Vol] 1.3 mg/dL High 0.50-0.90 [facility] Comment on above: Performed By: #### C DP, CMPX, PT #### [facility] [address] [place] [address] Blade Aligner: Renan Huerta MD GFR/1.73 sq M.predicted among non-blacks MDRD (S/P/Bld) [Vol rate/Area] 41 mL/min/{1.73_m2} Low >60 [facility] Comment on above: Result Comment: These results are not intended for [...] following therapy that affects renal tubular secretion. Performed By: #### C VIDYA KLEINX, PT #### [address] [place] [address] Blade Aligner: Renan Huerta MD Glucose [Mass/Vol] 98 mg/dL Normal 74-99 [facility] Comment on above: Performed By: #### C STEPHIE KLEIN, PT #### [address] [place] [address] Blade Aligner: Renan Huerta MD Potassium [Moles/Vol] 3.5 mmol/L Low 3.7-5.3 [facility] Comment on above: Performed By: #### C STEPHIE KLEIN, PT #### [address] [place] [address] Blade Aligner: Renan Huerta MD Protein [Mass/Vol] 5.7 g/dL Low 6.6-8.7 [facility] Comment on above: Performed By: #### C VIDYA KLEINX, PT #### [address] [place] [address] Blade Aligner: Renan Huerta MD Sodium [Moles/Vol] 137 mmol/L Normal 136-145 [facility] Comment on above: Performed By: #### C VIDYA KLEINX, PT #### [facility] [address] [place] [address] Blade Aligner: Renan Huerta MD Urea nitrogen [Mass/Vol] 17 mg/dL Normal 04-08 [facility] Comment on above: Performed By: #### C DP, CMPX, PT #### [facility] [address] [place] [address] Blade Aligner: Renan Huerta MD Comprehensive Metabolic Pane [facility] 05-09-2025 Albumin [Mass/Vol] 3.3 g/dL Low 3.5 - 5.2 g/dL [facility] Albumin/Globulin [Mass ratio] 1.4 {ratio} 1.0 - 2.5 [facility] ALP [Catalytic activity/Vol] 53 U/L 35 - 104 U/L [facility] ALT [Catalytic activity/Vol] 14 U/L 10 - 35 U/L [facility] Anion gap [Moles/Vol] 11 mmol/L 9 - 16 mmol/L [facility] AST [Catalytic activity/Vol] 33 U/L 10 - 35 U/L [facility] Bilirubin [Mass/Vol] 0.5 mg/dL 0.00 - 1.20 mg/dL [facility] Calcium [Mass/Vol] 8.3 mg/dL Low 8.6 - 10. 4 mg/dL [facility] Chloride [Moles/Vol] 105 mmol/L 98 - 10 7 mmol/L [facility] CO2 [Moles/Vol] 21 mmol/L 20 - 31 mmol/L [facility] Creatinine [Mass/Vol] 1.3 mg/dL High 0.50 - 0.90 mg/dL [facility] Est, Glom Filt Rate 41 Low - PINF [facility] Comment on above: These results are not intended for use [...] following therapy that affects renal tubular secretion. Glucose [Mass/Vol] 98 mg/dL 74 - 99 mg/dL [facility] Interpretation and review of laboratory results Abnormal [facility] Potassium [Moles/Vol] 3.5 mmol/L Low 3.7 - 5.3 mmol/L [facility] Protein [Mass/Vol] 5.7 g/dL Low 6.6 - 8.7 g/dL [facility] Sodium [Moles/Vol] 137 mmol/L 136 - 145 mmol/L [facility] Urea nitrogen [Mass/Vol] 17 mg/dL 8 - 23 mg/dL [facility] Urea nitrogen/Creatinine [Mass ratio] 13 mg/mg 9 - 20 [facility] Ferritinon 05-03-2025 Ferritin [Mass/Vol] 133 ng/mL [facility] Comment on above: No reference range e stablished for this age/gender. Ferritin [Mass/Vol] 133 ng/mL Normal [facility] Comment on above: Result Comment: No r eference range established for this age/gender. Performed By: #### C OVRB #### [facility] [address] [place] [address] Blade Aligner: Renan Huerta MD Iron Binding Cap.on 05-03-20 25 % Fe Saturation 21 % Normal 20-55 [facility] Comment on above: Performed By: #### C OVRB #### [facility] [address] [place] [address] Blade Aligner: Renan Huerta MD Iron [Mass/Vol] 33 ug/dL Low 37-145 [facility] Comment on above: Performed By: #### C OVRB #### [facility] [address] [place] [address] Blade Aligner: Renan Huerta MD Total Fe Binding Cap 156 ug/dL Low 250-450 [facility] Comment on above: Performed By: #### C OVRB #### [facility] [address] [place] [address] Blade Aligner: Renan Huerta MD Unbound Fe Bind Cap 123 ug/dL Normal 112-347 [facility] Comment on above: Performed By: #### C OVRB #### [facility] [address] [place] [address] Blade Aligner: Renan Huerta MD Iron and TIBCon 05-03-2025 Interpretation and review of laboratory results Abnormal [facility] Iron [Mass/Vol] 33 ug/dL Low 37 - 145 ug/dL [facility] Iron binding capacity [Mass/Vol] 156 ug/dL Low 250 - 450 ug/dL [facility] Iron saturation [Mass fraction] 21 % 20 - 55 % [facility] UIBC 123 ug/dL 112 - 347 ug/dL [facility] No Panel Informationon 05-03 [facility] CBC with Auto Differentialon 05-02-2025 Basophils (Bld) [#/Vol] 0.04 10*3/uL [facility] Basophils/100 WBC (Bld) 1 % 0 - 2 % B [facility] Eosinophils (Bld) [#/Vol] 0.05 10*3/uL [facility] Eosinophils/100 WBC (Bld) 1 % 1 - 4 % [facility] Erythrocyte distribution width (RBC) [Ratio] 18.9 % High 11.8 - 14.4 % [facility] Hematocrit (Bld) [Volume fraction] 24.6 % Low 36.3 - 47.1 % [facility] Hemoglobin (Bld) [Mass/Vol] 7.8 g/dL Low 11.9 - 15.1 g/dL [facility] Immature granulocytes (Bld) [#/Vol] [facility] Immature granulocytes/100 WBC (Bld) 0 % 0 [facility] Interpretation and review of laboratory results Abnormal [facility] Lymphocytes/100 WBC (Bld) 12 % Low 24 - 43 % [facility] Lymphocytes/100 WBC (Bld) 0.71 % Low [facility] MCH (RBC) [Entitic mass] 29.3 pg 25.2 - 33.5 pg [facility] MCHC (RBC) [Mass/Vol] 31.7 g/dL 28.4 - 34.8 g/dL [facility] MCV (RBC) [Entitic vol] 92.5 fL 82.6 - 102.9 fL [facility] Monocytes/100 WBC (Bld) 5 % 3 - 12 % B on [facility] Monocytes/100 WBC (Bld) 0.31 % B on [facility] Neutrophils/100 WBC (Bld) 81 % High 36 - 65 % [facility] Nucleated RBC/100 WBC (Bld) [Ratio] 0.0 % 0.0 per 100 WBC [facility] Platelet mean volume (Bld) [Entitic vol] 9.8 fL 8.1 - 13.5 fL [facility] Platelets (Bld) [#/Vol] 177 10*3/uL [facility] RBC (Bld) [#/Vol] 2.66 10*6/uL Low 3.95 - 5.11 m/uL [facility] Segmented neutrophils/100 WBC (Bld) 4.60 % [facility] WBC other (Bld) [#/Vol] 5.7 B on [facility] CBC with Diffon 05-02-2025 Abs. Basophil 0.04 k/uL Normal 0.00-0.20 [facility] Comment on above: Performed By: #### C OVRB #### [facility] [address] [place] [address] Blade Aligner: Renan Huerta MD Abs.Imm.Granulocyte <0.03 Normal 0.00-0.30 [facility] Comment on above: Performed By: #### C OVRB #### [facility] [address] [place] [address] Blade Aligner: Renan Huerta MD Abs.Neutrophil (Seg) 4.60 k/uL Normal 1.50-8.10 [facility] Comment on above: Performed By: #### C OVRB #### [facility] [address] [place] [address] Dr. [place], [facility] Blade Aligner: Renan Huerta MD Basophils/100 WBC (Bld) 1 % Normal 0-2 [facility] Comment on above: Performed By: #### C OVRB #### [address] [place], [facility]83 Blade Aligner: Renan Huerta MD Eosinophils (Bld) [#/Vol] 0.05 10*3/uL Normal 0.00-0.44 [facility] Comment on above: Performed By: #### C OVRB #### [address] [place] [id number] Blade Aligner: Renan Huerta MD Eosinophils/100 WBC (Bld) 1 % Normal 1-4 [facility] Comment on above: Performed By: #### C OVRB #### [address] [place], [facility]83 Blade Aligner: Renan Huerta MD Erythrocyte distribution width (RBC) [Ratio] 18.9 % High 11.8-14.4 [facility] Comment on above: Performed By: #### C OVRB #### [address] [place] [id number] Blade Aligner: Renan Huerta MD Hematocrit (Bld) [Volume fraction] 24.6 % Low 36.3-47.1 [facility] Comment on above: Performed By: #### C OVRB #### [address] [place] [id number] Blade Aligner: Renan Huerta MD Hemoglobin (Bld) [Mass/Vol] 7.8 g/dL Low 11.9-15.1 [facility] Comment on above: Performed By: #### C OVRB #### [address] [place] [id number] Blade Aligner: Renan Huerta MD Immature granulocytes/100 WBC (Bld) 0 % Normal 0 [facility] Comment on above: Performed By: #### C OVRB #### [facility] [address] [place] [id number] Blade Aligner: Renan Huerta MD Lymphocytes (Bld) [#/Vol] 0.71 10*3/uL Low 1.10-3.70 [facility] Comment on above: Performed By: #### C OVRB #### [facility] [address] [place], [place] [id number] Blade Aligner: Renan Huerta MD Lymphocytes/100 WBC (Bld) 12 % Low 24-43 [facility] Comment on above: Performed By: #### C OVRB #### [facility] [address] [place], [place] 7826383 Blade Aligner: Renan Huerta MD MCH (RBC) [Entitic mass] 29.3 pg Normal 25.2-33.5 [facility] Comment on above: Performed By: #### C OVRB #### [address] [place], [place] 6189883 Blade Aligner: Renan Huerta MD MCHC (RBC) [Mass/Vol] 31.7 g/dL Normal 28.4-34.8 [facility] Comment on above: Performed By: #### C OVRB #### [facility] [address] [place] [id number] Blade Aligner: Renan Huerta MD MCV (RBC) [Entitic vol] 92.5 fL Normal 82.6-102.9 [facility] Comment on above: Performed By: #### C OVRB #### [facility] [address] [place], [place] 8101083 Blade Aligner: Renan Huerta MD Monocytes (Bld) [#/Vol] 0.31 10*3/uL Normal 0.10-1.20 [facility] Comment on above: Performed By: #### C OVRB #### [facility] [address] [place], [place] 626[address] Blade Aligner: Renan Huerta MD Monocytes/100 WBC (Bld) 5 % Normal 3-12 [facility] Comment on above: Performed By: #### C OVRB #### [facility] [address] [place], [place] 6961383 Blade Aligner: Renan Huerta MD Neutrophil (Seg) 81 % High 36-65 [facility] Comment on above: Performed By: #### C OVRB #### [facility] [address] [place], [place] 33[address]83 Blade Aligner: Renan Huerta MD NRBC Automated 0.0 per 100 WBC Normal 0.0 [facility] Comment on above: Performed By: #### C OVRB #### [facility] [address] [place] [address] Blade Aligner: Renan Huerta MD Platelet mean volume (Bld) [Entitic vol] 9.8 fL Normal 8.1-13.5 [facility] Comment on above: Performed By: #### C OVRB #### [facility] [address] [place] [address] Blade Aligner: Renan Huerta MD Platelets (Bld) [#/Vol] 177 10*3/uL Normal 138-453 [facility] Comment on above: Performed By: #### C OVRB #### [facility] [address] [place], [place] 7383083 Blade Aligner: Renan Huerta MD RBC (Bld) [#/Vol] 2.66 10*6/uL Low 3.95-5.11 [facility] Comment on above: Performed By: #### C OVRB #### [facility] [address] [place], [place] 1029283 Blade Aligner: Renan Huerta MD WBC (Bld) [#/Vol] 5.7 10*3/uL Normal 3.5-11.3 [facility] Comment on above: Performed By: #### C OVRB #### [facility] [address] [place], [place] 1158083 Blade Aligner: Renan Huerta MD Comp Metabolic Profon 2024 Albumin [Mass/Vol] 3.4 g/dL Low 3.5-5.2 [facility] Comment on above: Performed By: #### C OVRB #### [facility] [address] [place], [place] 2676083 Blade Aligner: Renan Huerta MD Albumin/Glob Ratio 1.6 Normal 1.0-2.5 [facility] Comment on above: Performed By: #### C OVRB #### [facility] [address] [place], [place] 068[address]83 Blade Aligner: Renan Huerta MD Alkaline Phos 53 U/L Normal 35-104 [facility] Comment on above: Performed By: #### C OVRB #### [facility] [address] [place] [address] Dr. [place], [place] 4117583 Blade Aligner: Renan Huerta MD ALT [Catalytic activity/Vol] 15 U/L Normal 10-35 [facility] Comment on above: Performed By: #### C OVRB #### [facility] [address] [place], [place] 9404083 Blade Aligner: Renan Huerta MD Anion gap [Moles/Vol] 11 mmol/L Normal 9-16 [facility] Comment on above: Performed By: #### C OVRB #### [facility] [address] [place], [place] [address]83 Blade Aligner: Renan Huerta MD AST [Catalytic activity/Vol] 30 U/L Normal 10-35 [facility] Comment on above: Performed By: #### C OVRB #### [facility] [address] [place], [place] 8272783 Blade Aligner: Renan Huerta MD Bilirubin [Mass/Vol] 0.4 mg/dL Normal 0.00-1.20 [facility] Comment on above: Performed By: #### C OVRB #### [facility] [address] [place], [place] 6760383 Blade Aligner: Renan Huerta MD BUN/CRE Ratio 15 Normal 9-20 [facility] Comment on above: Performed By: #### C OVRB #### [facility] [address] [place], [place] 3120283 Blade Aligner: Renan Huerta MD Calcium [Mass/Vol] 8.0 mg/dL Low 8.6-10.4 [facility] Comment on above: Performed By: #### C OVRB #### [facility] [address] [place], [place] 474[address]83 Blade Aligner: Renan Huerta MD Chloride [Moles/Vol] 105 mmol/L Normal 98-107 [facility] Comment on above: Performed By: #### C OVRB #### [facility] [address] [place], [place] [address] Blade Aligner: Renan Huerta MD CO2 [Moles/Vol] 20 mmol/L Normal 20-31 [facility] Comment on above: Performed By: #### C OVRB #### [facility] [address] [place], [place] 1590683 Blade Aligner: Renan Huerta MD Creatinine [Mass/Vol] 1.2 mg/dL High 0.50-0.90 [facility] Comment on above: Performed By: #### C OVRB #### [facility] [address] [place] [address] Blade Aligner: Renan Huerta MD GFR/1.73 sq M.predicted among non-blacks MDRD (S/P/Bld) [Vol rate/Area] 43 mL/min/{1.73_m2} Low >60 [facility] Comment on above: Result Comment: These results are not intended for [...] following therapy that affects renal tubular secretion. Performed By: #### C OVRB #### [facility] [address] [place] [address] [place] [address] Blade Aligner: Renan Huerta MD Glucose [Mass/Vol] 82 mg/dL Normal 74-99 [facility] Comment on above: Performed By: #### C OVRB #### [address] [place] [address] Blade Aligner: Renan Huerta MD Potassium [Moles/Vol] 4.6 mmol/L Normal 3.7-5.3 [facility] Comment on above: Performed By: #### C OVRB #### [address] [place] [address] Blade Aligner: Renan Huerta MD Protein [Mass/Vol] 5.6 g/dL Low 6.6-8.7 [facility] Comment on above: Performed By: #### C OVRB #### [facility] [address] [place] [address] Blade Aligner: Renan Huerta MD Sodium [Moles/Vol] 136 mmol/L Normal 136-145 [facility] Comment on above: Performed By: #### C OVRB #### [facility] [address] [place] [address] [place] [address] Blade Aligner: Renan Huerta MD Urea nitrogen [Mass/Vol] 18 mg/dL Normal 8-23 [facility] Comment on above: Performed By: #### C OVRB #### [facility] [address] [place] [address] Blade Aligner: Renan Huerta MD Comprehensive Metabolic Pane ton 05-02-2025 Albumin [Mass/Vol] 3.4 g/dL Low 3.5 - 5.2 g/dL [facility] Albumin/Globulin [Mass ratio] 1.6 {ratio} 1.0 - 2.5 [facility] ALP [Catalytic activity/Vol] 53 U/L 35 - 104 U/L [facility] ALT [Catalytic activity/Vol] 15 U/L 10 - 35 U/L [facility] Anion gap [Moles/Vol] 11 mmol/L 9 - 16 mmol/L [facility] AST [Catalytic activity/Vol] 30 U/L 10 - 35 U/L [facility] Bilirubin [Mass/Vol] 0.4 mg/dL 0.00 - 1.20 mg/dL [facility] Calcium [Mass/Vol] 8.0 mg/dL Low 8.6 - 10. 4 mg/dL [facility] Chloride [Moles/Vol] 105 mmol/L 98 - 10 7 mmol/L [facility] CO2 [Moles/Vol] 20 mmol/L 20 - 31 mmol/L [facility] Creatinine [Mass/Vol] 1.2 mg/dL High 0.50 - 0.90 mg/dL [facility] Est, Glom Filt Rate 43 Low - PINF [facility] Comment on above: These results are not intended for use [...] following therapy that affects renal tubular secretion. Glucose [Mass/Vol] 82 mg/dL 74 - 99 mg/dL [facility] Interpretation and review of laboratory results Abnormal [facility] Potassium [Moles/Vol] 4.6 mmol/L 3.7 - 5.3 mmol/L [facility] Protein [Mass/Vol] 5.6 g/dL Low 6.6 - 8.7 g/dL [facility] Sodium [Moles/Vol] 136 mmol/L 136 - 145 mmol/L [facility] Urea nitrogen [Mass/Vol] 18 mg/dL 8 - 23 mg/dL [facility] Urea nitrogen/Creatinine [Mass ratio] 15 mg/mg 9 - 20 [facility] Oleg 04-26-2025 ACT 194 sec High 79-149 [facility] ACT 178 sec High 79-149 [facility] Activated clotting timeon ACT Coag (Bld) 194 s High [facility] Interpretation and review of laboratory results Abnormal [facility] ACT Coag (Bld) 178 s High [facility] Interpretation and review of laboratory results Abnormal [facility] BUN, POCon 04-26-2025 Urea nitrogen [Mass/Vol] 18 mg/dL Normal 8- [facility] CHLORIDE (POC)on 04-26-2025 Chloride [Moles/Vol] 104 mmol/L 98 - 10 7 mmol/L [facility] Cardiac echo study Procedure on 04-26-2025 Body surface area Derived from formula 1.35 m2 [facility] EF Physician 60 % [facility] Left Ventricle: Norm al left ventricular systolic function with a visually estimated EF of 55 - 60%. Left ventricle size is normal. Increased wall thickness. Normal wall motion. Pericardium: Small to moderate circumferential pericardial effusion present. More anterior then posterior. This is marginally increased from prior imaging but no evidence of tamponade phsyiology. Aortic Valve: Trileaflet valve. Thickened cusps. Mildly calcified cusps. Mild to moderate regurgitation. Tricuspid Valve: Mild to moderate regurgitation. Image quality is adequate. Left Ventricle Normal left ventricular systolic function with a visually estimated EF of 55 - 60%. Left ventricle size is normal. Increased wall thickness. Normal wall motion. Left Atrium Left atrium size is normal. Mitral Valve Valve structure is normal. Tricuspid Valve Valve structure is normal. Mild to moderate regurgitation. Aortic Valve Trileaflet valve. Thickened cusps. Mildly calcified cusps. Mild to moderate regurgitation. Pericardium Moderate (1-2 cm) circumferential pericardial effusion present. More anterior then posterior. Septum No interatrial shunt visualized with color Doppler. Study Details Image quality: adequate. Color flow Doppler was performed. No contrast was given. [facility] CV CPACS [facility] Radiology Study observation (narrative) [facility] Chloride (POC)on 04-26-2025 Chloride [Moles/Vol] 104 mmol/L Normal 98-107 [facility] Creatinine W/GFR Point of Ca reon 04-26-2025 Creatinine [Mass/Vol] 1.2 mg/dL High 0.51 - 1.19 mg/dL [facility] eGFR, POC 44 Low - PINF [facility] Comment on above: These results are not intended for use [...] following therapy that affects renal tubular secretion. Creatinine w/GFR, POCon 04-17 Creatinine [Mass/Vol] 1.2 mg/dL High 0.51-1.19 [facility] GFR/1.73 sq M.predicted among non-blacks MDRD (S/P/Bld) [Vol rate/Area] 44 mL/min/{1.73_m2} Low >60 [facility] Comment on above: Result Comment: These results are not intended for [...] following therapy that affects renal tubular secretion. Glucose (POC)on 04-26-2025 Glucose [Mass/Vol] 80 mg/dL Normal 74-100 [facility] Hemoglobin and hematocrit, b loodon 04-26-2025 Hematocrit (Bld) [Volume fraction] 27 % Low 36 - 46 % [facility] Hemoglobin (Bld) [Mass/Vol] 9.3 g/dL Low 12.0 - 16.0 g/dL [facility] Hgb/Hct, POCon 04-26-2025 Hematocrit (Bld) [Volume fraction] 27 % Low 36-46 [facility] Hemoglobin (Bld) [Mass/Vol] 9.3 g/dL Low 12.0-16.0 [facility] No Panel Informationon 04-26 Interpretation and review of laboratory results Abnormal [facility] POCT Glucoseon 04-26-2025 Glucose [Mass/Vol] 80 mg/dL 74 - 100 mg/dL [facility] POCT urea (BUN)on 04-26-2025 Urea nitrogen [Mass/Vol] 18 mg/dL 8 - 26 mg/dL [facility] POTASSIUM (POC)on 04-26-2025 Potassium [Moles/Vol] 4.0 mmol/L 3.5 - 4.5 mmol/L [facility] Potassium (POC)on 04-26-2025 Potassium [Moles/Vol] 4.0 mmol/L Normal 3.5-4.5 [facility] SODIUM (POC)on 04-26-2025 Sodium [Moles/Vol] 138 mmol/L 138 - 146 mmol/L [facility] Sodium (POC)on 04-26-2025 Sodium [Moles/Vol] 138 mmol/L Normal 138-146 [facility] TYPE AND SCREENon 04-26-2025 ABO and Rh group Nom (Bld) Blood group A Rh(D) positive [facility] Arm Band Number BE [id number] [facility] Blood Bank Sample Expiration 04/29/2025,2359 [facility] Blood group antibodies identified Nom Negative [facility] Type + Screenon 04-26-2025 Type + Screen Sample Expiration 04/29/2025,2359 Arm Band Number BE [id number] ABO/Rh(D) A POSITIVE Antibody Screen NEGATIVE Normal [facility] Comment on above: Performed By: #### T YS #### [facility] [address] [place] [address] Blade Aligner: Jose Manuel Shah MD BASIC METABOLIC PANELon 03-17 Anion gap [Moles/Vol] 4 mmol/L Low 5-15 [facility] Comment on above: Performed By: #### 4 8066-5 #### [facility] ([id number]) [address] [place] [address] #### CBCA, HA1C, CMP, #### [facility] ([id number]) [address], [address] [place] [address] Calcium [Mass/Vol] 8.0 mg/dL Low 8.5-10.5 [facility] Comment on above: Performed By: #### 4 8066-5 #### [facility] ([id number]) [address] [place] [address] #### CBCA, HA1C, CMP, #### [facility] ([id number]) [address], [address] [place] [address] Chloride [Moles/Vol] 111 mmol/L High 98-109 [facility] Comment on above: Performed By: #### 4 8066-5 #### [facility] ([id number]) [address] [place] [address] #### CBCA, HA1C, CMP, #### [facility] ([id number]) [address], [address] [place] [address] CO2 [Moles/Vol] 21 mmol/L Low 22-32 [facility] Comment on above: Performed By: #### 4 8066-5 #### [facility] ([id number]) [address] [place] [address] #### CBCA, HA1C, CMP, #### [facility] ([id number]) [address], [address] [place] [address] Creatinine [Mass/Vol] 1.02 mg/dL High 0.40-1.00 [facility] Comment on above: Result Comment: METH OD TRACEABLE TO IDMS STANDARD Performed By: #### 4 8066-5 #### [facility] ([id number]) [address] [place] [address] #### CBCA, HA1C, CMP, #### [facility] ([id number]) [address], [address] [place] [address] GFR/1.73 sq M.predicted among non-blacks MDRD (S/P/Bld) [Vol rate/Area] 54 mL/min/{1.73_m2} Low >=60 [facility] Comment on above: Result Comment: eGFR not reported due to non-numeric value for Creatinine. Reported eGFR is based on the CKD-EPI 2020 equation that does not use a race coefficient. Performed By: #### 4 8066-5 #### [facility] ([id number]) [address] [place] [address] #### CBCA, HA1C, CMP, #### [facility] ([id number]) [address], [address] [place] [address] Glucose [Mass/Vol] 106 mg/dL High 65-99 [facility] Comment on above: Performed By: #### 4 8066-5 #### [facility] ([id number]) [address] [place] [address] #### CBCA, HA1C, CMP, 82800-9 #### [facility] ([id number]) [address] [place] [address], [address] [place] [address] Potassium [Moles/Vol] 3.7 mmol/L Normal 3.5-5.0 [facility] Comment on above: Performed By: #### 4 8066-5 #### [facility] ([id number]) [address] [place] [address] #### CBCA, HA1C, CMP, 82689-1 #### [facility] ([id number]) [address] [place] [address], [address] [place] [address] Sodium [Moles/Vol] 136 mmol/L Normal 134-146 [facility] Comment on above: Performed By: #### 4 8066-5 #### [facility] ([id number]) [address] [place] [address] #### CBCA, HA1C, CMP, 68148-8 #### [facility] ([id number]) [address] [place] [address], [address] [address] Urea nitrogen [Mass/Vol] 17 mg/dL Normal 5-27 [facility] Comment on above: Performed By: #### 4 8066-5 #### [facility] ([id number]) [address] [place] [address] #### CBCA, HA1C, CMP, 41673-9 #### [facility] ([id number]) [address] [place] [address], [address] [place] [address] CBC W Auto Differential pane l (Bld)on 03-31-2025 ABSOLUTE BASOPHIL 0 10*3/uL 0.0 - 0.2 10*3/uL [facility] Basophils/100 WBC (Bld) 0.8 % [facility] DIFFERENTIAL TYPE AUTOMATED DIFFERENTIAL [facility] Comment on above: PERFORMED AT [address] [place] [address] Eosinophils (Bld) [#/Vol] 0 10*3/uL 0.0 - 0.4 10*3/uL [facility] Eosinophils/100 WBC (Bld) 0.7 % [facility] Hematocrit (Bld) [Volume fraction] 23 % Low 35 - 47 % [facility] Interpretation and review of laboratory results Abnormal [facility] Lymphocytes (Bld) [#/Vol] 0.6 10*3/uL Low 1.0 - 3.5 10*3/uL [facility] Lymphocytes/100 WBC (Bld) 11 % [facility] Monocytes (Bld) [#/Vol] 0.3 10*3/uL 0.0 - 0.9 10*3/uL [facility] Monocytes/100 WBC (Bld) 5.6 % [facility] Neutrophils (Bld) [#/Vol] 4.3 10*3/uL 1.5 - 6.6 10*3/uL [facility] Neutrophils/100 WBC (Bld) 81.9 % [facility] RBC (Bld) [#/Vol] 2.74 10*6/uL Low [facility] WBC corrected for nucl RBC Auto (Bld) [#/Vol] 5.3 [facility] CBC WITH AUTO DIFFERENTIALon 03-31-2025 Erythrocyte distribution width (RBC) [Ratio] 18.2 % High 11.5-15 [facility] Comment on above: Performed By: #### 4 8066-5 #### [facility] ([id number]) [address] [place] [address], [place] [address] #### CBCA, HA1C, CMP, 1968-7, 96817-1 #### [facility] ([id number]) [address] [facility], [address] [place] [address] Hemoglobin (Bld) [Mass/Vol] 7.7 g/dL Low 11.7-15.5 [facility] Comment on above: Performed By: #### 4 8066-5 #### [facility] ([id number]) [address] [place] [address] #### CBCA, HA1C, CMP, #### [facility] ([id number]) [address] [address] MCH (RBC) [Entitic mass] 28.2 pg Normal 27-34 [facility] Comment on above: Performed By: #### 4 8066-5 #### [facility] ([id number]) [address] [place] [address] #### CBCA, HA1C, CMP, 94191-6 #### [facility] ([id number]) [address] [place] [address] MCHC (RBC) [Mass/Vol] 33.6 g/dL Normal 32-36 [facility] Comment on above: Performed By: #### 4 8066-5 #### [facility] ([id number]) [address] [place] [address] #### CBCA, HA1C, CMP, #### [facility] ([id number]) [address] [place] [address] MCV (RBC) [Entitic vol] 84 fL Normal 80-100 [facility] Comment on above: Performed By: #### 4 8066-5 #### [facility] ([id number]) [address] [place] [address] #### CBCA, HA1C, CMP, 1968-02, 28430-8 #### [facility] ([id number]) [address] [place] [address] Platelet mean volume (Bld) [Entitic vol] 7.7 fL Normal 7-12 [facility] Comment on above: Performed By: #### 4 8066-5 #### [facility] ([id number]) [address] [place] [address], [place] [address] #### CBCA, HA1C, CMP, #### [facility] ([id number]) [address] [facility], [address] [place] [address] Platelets (Bld) [#/Vol] 267 10*3/uL Normal 150-450 [facility] Comment on above: Performed By: #### 4 8066-5 #### [facility] ([id number]) [address] [place] [address] #### CBCA, HA1C, CMP, #### [facility] ([id number]) [address] [facility], [address] [place] [address] BASOPHILS ABSOLUTE COUNT (10*3/UL) BY AUTOMATED COUNT 0.0 10*3/uL Normal 0.0-0.2 [facility] Comment on above: Performed By: #### 4 8066-5 #### [facility] ([id number]) [address] [place] [address] #### CBCA, HA1C, CMP, #### [facility] ([id number]) [address] [facility], [address] [place] [address] BASOPHILS RELATIVE PERCENT BY AUTOMATED COUNT 0.8 % Normal [facility] Comment on above: Performed By: #### 4 8066-5 #### [facility] ([id number]) [address] [place] [address] #### CBCA, HA1C, CMP, #### [facility] ([id number]) [address] [facility], [address] [place] [address] CELLAVISION DIFFERENTIAL TYPE AUTOMATED DIFFERENTIAL Normal [facility] Comment on above: Performed By: #### 4 8066-5 #### [facility] ([id number]) [address] [place] [address] #### CBCA, HA1C, CMP, #### [facility] ([id number]) [address] [facility], [address] [place] [address] Eosinophils (Bld) [#/Vol] 0.0 10*3/uL Normal 0.0-0.4 [facility] Comment on above: Performed By: #### 4 8066-5 #### [facility] ([id number]) [address] [place] [address] #### CBCA, HA1C, CMP, 03040-2 #### [facility] ([id number]) [address] [facility], [address] [place] [address] EOSINOPHILS RELATIVE PERCENT BY AUTOMATED COUNT 0.7 % Normal [facility] Comment on above: Performed By: #### 4 8066-5 #### [facility] ([id number]) [address] [place] [address] #### CBCA, HA1C, CMP, 63326-9 #### [facility] ([id number]) [address] [facility], [address] [place] [address] Hematocrit (Bld) [Volume fraction] 23.0 % Low 35-47 [facility] Comment on above: Performed By: #### 4 8066-5 #### [facility] ([id number]) [address] [place] [address] #### CBCA, HA1C, CMP, 52951-8 #### [facility] ([id number]) [address] [facility], [address] [place] [address] LYMPHOCYTES ABSOLUTE COUNT (10*3/UL) BY AUTOMATED COUNT 0.6 10*3/uL Low 1.0-3.5 [facility] Comment on above: Performed By: #### 4 8066-5 #### [facility] ([id number]) [address] [place] [address] #### CBCA, HA1C, CMP, #### [facility] ([id number]) [address], [address] [place] [address] LYMPHOCYTES RELATIVE PERCENT BY AUTOMATED COUNT 11.0 % Normal [facility] Comment on above: Performed By: #### 4 8066-5 #### [facility] ([id number]) [address] [place] [address] #### CBCA, HA1C, CMP, #### [facility] ([id number]) [address], [address] [place] [address] MONOCYTES ABSOLUTE COUNT (10*3/UL) BY AUTOMATED COUNT 0.3 10*3/uL Normal 0.0-0.9 [facility] Comment on above: Performed By: #### 4 8066-5 #### [facility] ([id number]) [address] [place] [address] #### CBCA, HA1C, CMP, #### [facility] ([id number]) [address], [address] [place] [address] MONOCYTES RELATIVE PERCENT BY AUTOMATED COUNT 5.6 % Normal [facility] Comment on above: Performed By: #### 4 8066-5 #### [facility] ([id number]) [address] [place] [address] #### CBCA, HA1C, CMP, #### [facility] ([id number]) [address], [address] [place] [address] NEUTROPHILS ABSOLUTE COUNT BY AUTOMATED COUNT 4.3 10*3/uL Normal 1.5-6.6 [facility] Comment on above: Performed By: #### 4 8066-5 #### [facility] ([id number]) [address] [place] [address] #### CBCA, HA1C, CMP, #### [facility] ([id number]) [address], [address] [place] [address] NEUTROPHILS RELATIVE PERCENT BY AUTOMATED COUNT 81.9 % Normal [facility] Comment on above: Performed By: #### 4 8066-5 #### [facility] ([id number]) [address] [place] [address] #### CBCA, HA1C, CMP, #### [facility] ([id number]) [address] [facility], [address] [place] [address] RBC COUNT 2.74 X10E12/L Low 3.8-5.2 [facility] Comment on above: Performed By: #### 4 8066-5 #### [facility] ([id number]) [address] [place] [address] #### CBCA, HA1C, CMP, #### [facility] ([id number]) [address] [facility], [address] [place] [address] WBC (Bld) [#/Vol] 5.3 10*3/uL Normal 4-11 [facility] Comment on above: Performed By: #### 4 8066-5 #### [facility] ([id number]) [address] [place] [address] #### CBCA, HA1C, CMP, #### [facility] ([id number]) [address] [facility], [address] [place] [address] APTTon 03-24-2025 aPTT Coag (Bld) [Time] 37.0 s High 23.1-33.7 [facility] Comment on above: Result Comment: IV Heparin Therapy Range: 62.0-94.0 Performed By: #### P TT #### [facility] [address] [place] [address] Blade Aligner: Renan Huerta MD CBC auto differentialon 08-0 Basophils (Bld) [#/Vol] 0.05 10*3/uL [facility] Basophils/100 WBC (Bld) 1 % 0 - 2 % B on [facility] Eosinophils (Bld) [#/Vol] 0.11 10*3/uL [facility] Eosinophils/100 WBC (Bld) 2 % 1 - 4 % [facility] Erythrocyte distribution width (RBC) [Ratio] 16.7 % High 11.8 - 14.4 % [facility] Hematocrit (Bld) [Volume fraction] 26.2 % Low 36.3 - 47.1 % [facility] Hemoglobin (Bld) [Mass/Vol] 8.3 g/dL Low 11.9 - 15.1 g/dL [facility] Immature granulocytes (Bld) [#/Vol] 0.03 10*3/uL [facility] Immature granulocytes/100 WBC (Bld) 1 % High 0 [facility] Interpretation and review of laboratory results Abnormal [facility] Lymphocytes/100 WBC (Bld) 15 % Low 24 - 43 % [facility] Lymphocytes/100 WBC (Bld) 0.87 % Low [facility] MCH (RBC) [Entitic mass] 28.4 pg 25.2 - 33.5 pg [facility] MCHC (RBC) [Mass/Vol] 31.7 g/dL 28.4 - 34.8 g/dL [facility] MCV (RBC) [Entitic vol] 89.7 fL 82.6 - 102.9 fL [facility] Monocytes/100 WBC (Bld) 9 % 3 - 12 % B on [facility] Monocytes/100 WBC (Bld) 0.49 % B on [facility] Neutrophils/100 WBC (Bld) 72 % High 36 - 65 % [facility] Nucleated RBC/100 WBC (Bld) [Ratio] 0 % 0.0 per 100 WBC [facility] Platelet mean volume (Bld) [Entitic vol] 10.3 fL 8.1 - 13.5 fL [facility] Platelets (Bld) [#/Vol] 221 10*3/uL [facility] RBC (Bld) [#/Vol] 2.92 10*6/uL Low 3.95 - 5.11 m/uL [facility] Segmented neutrophils/100 WBC (Bld) 4.1 % [facility] WBC other (Bld) [#/Vol] 5.7 B on [facility] CBC with Diffon 03-24-2025 Abs. Basophil 0.05 k/uL Normal 0.00-0.20 [facility] Comment on above: Performed By: #### C OVRB #### [facility] [address] [place] [address] [address] [place] [id number] Blade Aligner: Renan Huerta MD Abs.Imm.Granulocyte 0.03 k/uL Normal 0.00-0.30 [facility] Comment on above: Performed By: #### C OVRB #### [address] [place] [address] Blade Aligner: Renan Huerta MD Abs.Neutrophil (Seg) 4.10 k/uL Normal 1.50-8.10 [facility] Comment on above: Performed By: #### C OVRB #### [facility] [address] [place] [address] [place] [address] Blade Aligner: Renan Huerta MD Basophils/100 WBC (Bld) 1 % Normal 0-2 [facility] Comment on above: Performed By: #### C OVRB #### [facility] [address] [place] [address] Dr. [place], [place] 8855583 Blade Aligner: Renan Huerta MD Eosinophils (Bld) [#/Vol] 0.11 10*3/uL Normal 0.00-0.44 [facility] Comment on above: Performed By: #### C OVRB #### [facility] [address] [place], [place] 0265883 Blade Aligner: Renan Huerta MD Eosinophils/100 WBC (Bld) 2 % Normal 1-4 [facility] Comment on above: Performed By: #### C OVRB #### [address] [place], [facility]83 Blade Aligner: Renan Huerta MD Erythrocyte distribution width (RBC) [Ratio] 16.7 % High 11.8-14.4 [facility] Comment on above: Performed By: #### C OVRB #### [address] [place] [id number] Blade Aligner: Renan Huerta MD Hematocrit (Bld) [Volume fraction] 26.2 % Low 36.3-47.1 [facility] Comment on above: Performed By: #### C OVRB #### [address] [place], [facility]83 Blade Aligner: Renan Huerta MD Hemoglobin (Bld) [Mass/Vol] 8.3 g/dL Low 11.9-15.1 [facility] Comment on above: Performed By: #### C OVRB #### [address] [place], [facility]83 Blade Aligner: Renan Huerta MD Immature granulocytes/100 WBC (Bld) 1 % High 0 [facility] Comment on above: Performed By: #### C OVRB #### [address] [place], [place] 4852583 Blade Aligner: Renan Huerta MD Lymphocytes (Bld) [#/Vol] 0.87 10*3/uL Low 1.10-3.70 [facility] Comment on above: Performed By: #### C OVRB #### [facility] [address] [place], [place] [id number] Blade Aligner: Renan Huerta MD Lymphocytes/100 WBC (Bld) 15 % Low 24-43 [facility] Comment on above: Performed By: #### C OVRB #### [facility] [address] [place] [facility]83 Blade Aligner: Renan Huerta MD MCH (RBC) [Entitic mass] 28.4 pg Normal 25.2-33.5 [facility] Comment on above: Performed By: #### C OVRB #### [address] [place], [facility]83 Blade Aligner: Renan Huerta MD MCHC (RBC) [Mass/Vol] 31.7 g/dL Normal 28.4-34.8 [facility] Comment on above: Performed By: #### C OVRB #### [address] [place] [facility]83 Blade Aligner: Renan Huerta MD MCV (RBC) [Entitic vol] 89.7 fL Normal 82.6-102.9 [facility] Comment on above: Performed By: #### C OVRB #### [address] [place] [facility]83 Blade Aligner: Renan Huerta MD Monocytes (Bld) [#/Vol] 0.49 10*3/uL Normal 0.10-1.20 [facility] Comment on above: Performed By: #### C OVRB #### [address] [place] [facility]83 Blade Aligner: Renan Huerta MD Monocytes/100 WBC (Bld) 9 % Normal 3-12 [facility] Comment on above: Performed By: #### C OVRB #### [facility] [address] [place] [facility]83 Blade Aligner: Renan Huerta MD Neutrophil (Seg) 72 % High 36-65 [facility] Comment on above: Performed By: #### C OVRB #### [facility] [address] [place], [place] 3015783 Blade Aligner: Renan Huerta MD NRBC Automated 0.0 per 100 WBC Normal 0.0 [facility] Comment on above: Performed By: #### C OVRB #### [facility] [address] [place], [place] 2767483 Blade Aligner: Renan Huerta MD Platelet mean volume (Bld) [Entitic vol] 10.3 fL Normal 8.1-13.5 [facility] Comment on above: Performed By: #### C OVRB #### [address] [place], [place] 1382483 Blade Aligner: Renan Huerta MD Platelets (Bld) [#/Vol] 221 10*3/uL Normal 138-453 [facility] Comment on above: Performed By: #### C OVRB #### [address] [place], [place] 2552983 Blade Aligner: Renan Huerta MD RBC (Bld) [#/Vol] 2.92 10*6/uL Low 3.95-5.11 [facility] Comment on above: Performed By: #### C OVRB #### [facility] [address] [place], [place] 4422983 Blade Aligner: Renan Huerta MD WBC (Bld) [#/Vol] 5.7 10*3/uL Normal 3.5-11.3 [facility] Comment on above: Performed By: #### C OVRB #### [facility] [address] [place] [address] [place] [address] Blade Aligner: Renan Huerta MD Comp Metabolic Pr/rfx MGon 0 03-24-2025 Albumin [Mass/Vol] 2.9 g/dL Low 3.5-5.2 [facility] Comment on above: Performed By: #### C OVRB #### [facility] [address] [place], [place] 7167983 Blade Aligner: Renan Huerta MD Albumin/Glob Ratio 1.4 Normal 1.0-2.5 [facility] Comment on above: Performed By: #### C OVRB #### [facility] [address] [place] [address] Blade Aligner: Renan Huerta MD Alkaline Phos 52 U/L Normal 35-104 [facility] Comment on above: Performed By: #### C OVRB #### [facility] [address] [place], [place] 2748883 Blade Aligner: Renan Huerta MD ALT [Catalytic activity/Vol] 14 U/L Normal 10-35 [facility] Comment on above: Performed By: #### C OVRB #### [facility] [address] [place], [place] 8305183 Blade Aligner: Renan Huerta MD Anion gap [Moles/Vol] 10 mmol/L Normal 9-16 [facility] Comment on above: Performed By: #### C OVRB #### [facility] [address] [place] [address] Blade Aligner: Renan Huerta MD AST [Catalytic activity/Vol] 37 U/L High 10-35 [facility] Comment on above: Result Comment: Spec imen hemolysis has exceeded the interference as defined by Sharath. Value may be falsely increased. Suggest recollection if clinically indicated. Performed By: #### C OVRB #### [facility] [address] [place], [place] 0792283 Blade Aligner: Renan Huerta MD Bilirubin [Mass/Vol] 0.4 mg/dL Normal 0.00-1.20 [facility] Comment on above: Performed By: #### C OVRB #### [facility] [address] [place], [place] 7573583 Blade Aligner: Renan Huerta MD BUN/CRE Ratio 24 High 9-20 [facility] Comment on above: Performed By: #### C OVRB #### [facility] [address] [place] 3725883 Blade Aligner: Renan Huerta MD Calcium [Mass/Vol] 7.6 mg/dL Low 8.6-10.4 [facility] Comment on above: Performed By: #### C OVRB #### [facility] [address] [place], [place] 5805483 Blade Aligner: Renan Huerta MD Chloride [Moles/Vol] 111 mmol/L High 98-107 [facility] Comment on above: Performed By: #### C OVRB #### [facility] [address] [place], [place] 3893583 Blade Aligner: Renan Huerta MD CO2 [Moles/Vol] 17 mmol/L Low 20-31 [facility] Comment on above: Performed By: #### C OVRB #### [facility] [address] [place], [place] 3876983 Blade Aligner: Renan Huerta MD Creatinine [Mass/Vol] 1.1 mg/dL High 0.50-0.90 [facility] Comment on above: Performed By: #### C OVRB #### [facility] [address] [place], [place] 8928383 Blade Aligner: Renan Huerta MD GFR/1.73 sq M.predicted among non-blacks MDRD (S/P/Bld) [Vol rate/Area] 48 mL/min/{1.73_m2} Low >60 [facility] Comment on above: Result Comment: These results are not intended for [...] following therapy that affects renal tubular secretion. Performed By: #### C OVRB #### [facility] [address] [place] [address] Blade Aligner: Renan Huerta MD Glucose [Mass/Vol] 82 mg/dL Normal 74-99 [facility] Comment on above: Performed By: #### C OVRB #### [facility] [address] [place] [address] Blade Aligner: Renan Huerta MD Potassium [Moles/Vol] 4.8 mmol/L Normal 3.7-5.3 [facility] Comment on above: Result Comment: Spec imen hemolysis has exceeded the interference as defined by Sharath. Value may be falsely increased. Suggest recollection if clinically indicated. Performed By: #### C OVRB #### [facility] [address] [place] [address] Blade Aligner: Renan Huerta MD Protein [Mass/Vol] 5.0 g/dL Low 6.6-8.7 [facility] Comment on above: Performed By: #### C OVRB #### [facility] [address] [place] [address] Blade Aligner: Renan Huerta MD Sodium [Moles/Vol] 138 mmol/L Normal 136-145 [facility] Comment on above: Performed By: #### C OVRB #### [facility] [address] [place] [address] Blade Aligner: Renan Huerta MD Urea nitrogen [Mass/Vol] 26 mg/dL High 8-23 [facility] Comment on above: Performed By: #### C OVRB #### [facility] [address] [place] [address] Blade Aligner: Renan Huerta MD Comprehensive Metabolic Pane l w/ Reflex to MGon 03-24-2025 Albumin [Mass/Vol] 2.9 g/dL Low 3.5 - 5.2 g/dL [facility] Albumin/Globulin [Mass ratio] 1.4 {ratio} 1.0 - 2.5 [facility] ALP [Catalytic activity/Vol] 52 U/L 35 - 104 U/L [facility] ALT [Catalytic activity/Vol] 14 U/L 10 - 35 U/L [facility] Anion gap [Moles/Vol] 10 mmol/L 9 - 16 mmol/L [facility] AST [Catalytic activity/Vol] 37 U/L High 10 - 35 U/L [facility] Comment on above: Specimen hemolysis h as exceeded the interference as defined by Sharath. Value may be falsely increased. Suggest recollection if clinically indicated. Bilirubin [Mass/Vol] 0.4 mg/dL 0.00 - 1.20 mg/dL [facility] Calcium [Mass/Vol] 7.6 mg/dL Low 8.6 - 10. 4 mg/dL [facility] Chloride [Moles/Vol] 111 mmol/L High 98 - 10 7 mmol/L [facility] CO2 [Moles/Vol] 17 mmol/L Low 20 - 31 mmol/L [facility] Creatinine [Mass/Vol] 1.1 mg/dL High 0.50 - 0.90 mg/dL [facility] Est, Glom Filt Rate 48 Low - PINF [facility] Comment on above: These results are not intended for use [...] following therapy that affects renal tubular secretion. Glucose [Mass/Vol] 82 mg/dL 74 - 99 [facility]/dL [facility] Interpretation and review of laboratory results Abnormal [facility] Potassium [Moles/Vol] 4.8 mmol/L 3.7 - 5.3 mmol/L [facility] Comment on above: Specimen hemolysis h as exceeded the interference as defined by Sharath. Value may be falsely increased. Suggest recollection if clinically indicated. Protein [Mass/Vol] 5 g/dL Low 6.6 - 8.7 g/dL [facility] Sodium [Moles/Vol] 138 mmol/L 136 - 145 mmol/L [facility] Urea nitrogen [Mass/Vol] 26 mg/dL High 8 - 23 mg/dL [facility] Urea nitrogen/Creatinine [Mass ratio] 24 mg/mg High 9 - 20 [facility] Cult,Urineon 03-24-2025 Cult,Urine Specimen Description .CLEAN CATCH URINE Special Requests Site: Urine Culture KLEBSIELLA PNEUMONIAE >100,000 CFU/ML Report Status FINAL 03/24/2025 SUSCEPTIBILITY Organism KLEBSIELLA PNEUMONIAE Method ALICIA Ampicillin >=32 RESISTANT Cefazolin (Non-Urine) 2 SUSCEPTIBLE Cefazolin (Urine) 2 SUSCEPTIBLE Urine specific interpretations are for uncomplicated UTIs only. Ceftriaxone <=0.25 SUSCEPTIBLE Gentamicin <=1 SUSCEPTIBLE Levofloxacin <=0.12 SUSCEPTIBLE Nitrofurantoin 128 RESISTANT Piperacillin/Tazobactam <=4 SUSCEPTIBLE Trimethoprim/Sulfa <=20 SUSCEPTIBLE Susceptible [facility] Comment on above: Performed By: #### C OVRB #### [facility] [address] [place] [address] Blade Aligner: Renan Huerta MD Culture, Urineon 03-24-2025 Interpretation and review of laboratory results Abnormal [facility] Microorganism identified Cx Nom (Unsp spec) KLEBSIELLA PNEUMONIAE >100,000 CFU/ML Abnormal [facility] Service comment (Unsp spec) [Interp] Site: Urine [facility] Specimen Description .CLEAN CATCH URINE [facility] CULT,URINEon 03-24-2025 Interpretation and review of laboratory results [facility] Spec[facility] Description .CLEAN CATCH URINE [facility] MHPT CULT,URINE Special Requests Sit e: [facility] Culture KLEBSIELLA PNEUMONIAE >100,000 CFU/ML [facility] Report Status FINAL 03/24/2025 [facility] MHPT CULT,URINE SUSCEPTIBILITY [facility]INE Organism KLEBSIELLA PNEUMONIAE [facility] Method ALICIA [facility] Ampicillin >=32 RESISTANT Resistant [facility] Cefazolin (Non-Urine ) 2 SUSCEPTIBLE Susceptible [facility] Cefazolin (Urine) 2 SUSCEPTIBLE Susceptible [facility] Urine specific interpretations are for uncomplicated UTIs only. Susceptible [facility] MHPT CULT,URINE Ceftriaxone <=0.25 SUSCEPTIBLE Susceptible [facility] MHPT CULT,URINE Gentamicin <=1 SUSCEPTIBLE Susceptible [facility] Levofloxacin <=0.12 SUSCEPTIBLE Susceptible [facility] MHPT CULT,URINE Nitrofurantoin 128 RESISTANT Resistant [facility] Piperacillin/Tazobac hernadez <=4 SUSCEPTIBLE Susceptible [facility] Trimethoprim/Sulfa < =20 SUSCEPTIBLE Susceptible [facility] Original Ordering Provider: ANALY ROCHA [facility] PTon 03-24-2025 INR Coag (PPP) [Relative time] 1.6 {INR} Normal [facility] Comment on above: Therapeutic Range: Moderate Anticoagulant Intensity: INR = 2.0-3.0 High Anticoagulant Intensity: INR = 2.5-3.5 Result Comment: Therapeutic Range: Moderate Anticoagulant Intensity: INR = 2.0-3.0 High Anticoagulant Intensity: INR = 2.5-3.5 Performed By: #### C OVRB #### [address] [place] [address] Blade Aligner: Renan Huerta MD PT Coag (PPP) [Time] 20.0 s High 12.0-15.0 [facility] Comment on above: Performed By: #### C OVRB #### [address] [place] [address] Blade Aligner: Renan Huerta MD PTTon 03-24-2025 aPTT Coag (Bld) [Time] 37 s High [facility] Comment on above: IV Heparin Therapy Range: 62.0-94.0 Interpretation and review of laboratory results Abnormal [facility] Protime-INRon 03-24-2025 Interpretation and review of laboratory results Abnormal [facility] CBC auto differentialon Basophils (Bld) [#/Vol] 0.06 10*3/uL [facility] Basophils/100 WBC (Bld) 1 % 0 - 2 % B on [facility] Eosinophils (Bld) [#/Vol] 0.09 10*3/uL [facility] Eosinophils/100 WBC (Bld) 2 % 1 - 4 % [facility] Erythrocyte distribution width (RBC) [Ratio] 16.5 % High 11.8 - 14.4 % [facility] Hematocrit (Bld) [Volume fraction] 23.5 % Low 36.3 - 47.1 % [facility] Hemoglobin (Bld) [Mass/Vol] 7.2 g/dL Low 11.9 - 15.1 g/dL [facility] Immature granulocytes (Bld) [#/Vol] 0.03 10*3/uL [facility] Immature granulocytes/100 WBC (Bld) 1 % High 0 [facility] Interpretation and review of laboratory results Abnormal [facility] Lymphocytes/100 WBC (Bld) 20 % Low 24 - 43 % [facility] Lymphocytes/100 WBC (Bld) 1.11 % [facility] MCH (RBC) [Entitic mass] 27.5 pg 25.2 - 33.5 pg [facility] MCHC (RBC) [Mass/Vol] 30.6 g/dL 28.4 - 34.8 g/dL [facility] MCV (RBC) [Entitic vol] 89.7 fL 82.6 - 102.9 fL [facility] Monocytes/100 WBC (Bld) 8 % 3 - 12 % B on [facility] Monocytes/100 WBC (Bld) 0.43 % B on [facility] Neutrophils/100 WBC (Bld) 68 % High 36 - 65 % [facility] Nucleated RBC/100 WBC (Bld) [Ratio] 0 % 0.0 per 100 WBC [facility] Platelet mean volume (Bld) [Entitic vol] 10.2 fL 8.1 - 13.5 fL [facility] Platelets (Bld) [#/Vol] 197 10*3/uL [facility] RBC (Bld) [#/Vol] 2.62 10*6/uL Low 3.95 - 5.11 m/uL [facility] Segmented neutrophils/100 WBC (Bld) 3.93 % [facility] WBC other (Bld) [#/Vol] 5.7 B on [facility] CBC with Diffon 03-23-2025 Abs. Basophil 0.06 k/uL Normal 0.00-0.20 [facility] Comment on above: Performed By: #### C BC #### [address] [place] [address] Blade Aligner: Renan Huerta MD Abs.Imm.Granulocyte 0.03 k/uL Normal 0.00-0.30 [facility] Comment on above: Performed By: #### C BC #### [facility] [address] [place] [address] Dr. [place], [place] [id number] Blade Aligner: Renan Huerta MD Abs.Neutrophil (Seg) 3.93 k/uL Normal 1.50-8.10 [facility] Comment on above: Performed By: #### C BC #### [facility] [address] [place] [address] [place] [address] Blade Aligner: Renan Huerta MD Basophils/100 WBC (Bld) 1 % Normal 0-2 [facility] Comment on above: Performed By: #### C BC #### [facility] [address] [place] [address] [place] [address] Blade Aligner: Renan Huerta MD Eosinophils (Bld) [#/Vol] 0.09 10*3/uL Normal 0.00-0.44 [facility] Comment on above: Performed By: #### C BC #### [facility] [address] [place] [address] Dr. [place] [id number] Blade Aligner: Renan Huerta MD Eosinophils/100 WBC (Bld) 2 % Normal 1-4 [facility] Comment on above: Performed By: #### C BC #### [facility] [address] [place], [place] [id number] Blade Aligner: Renan Huerta MD Erythrocyte distribution width (RBC) [Ratio] 16.5 % High 11.8-14.4 [facility] Comment on above: Performed By: #### C BC #### [facility] [address] [place], [place] [id number] Blade Aligner: Renan Huerta MD Hematocrit (Bld) [Volume fraction] 23.5 % Low 36.3-47.1 [facility] Comment on above: Performed By: #### C BC #### [facility] [address] [place], [place] [id number] Blade Aligner: Renan Huerta MD Hemoglobin (Bld) [Mass/Vol] 7.2 g/dL Low 11.9-15.1 [facility] Comment on above: Performed By: #### C BC #### [facility] [address] [place] [address] Dr. [place], [place] [id number] Blade Aligner: Renan Huerta MD Immature granulocytes/100 WBC (Bld) 1 % High 0 [facility] Comment on above: Performed By: #### C BC #### [facility] [address] [place], [place] [id number] Blade Aligner: Renan Huerta MD Lymphocytes (Bld) [#/Vol] 1.11 10*3/uL Normal 1.10-3.70 [facility] Comment on above: Performed By: #### C BC #### [facility] [address] [place], [place] [id number] Blade Aligner: Renan Huerta MD Lymphocytes/100 WBC (Bld) 20 % Low 24-43 [facility] Comment on above: Performed By: #### C BC #### [facility] [address] [place], [place] 2863483 Blade Aligner: Renan Huerta MD MCH (RBC) [Entitic mass] 27.5 pg Normal 25.2-33.5 [facility] Comment on above: Performed By: #### C BC #### [facility] [address] [place] [id number] Blade Aligner: Renan Huerta MD MCHC (RBC) [Mass/Vol] 30.6 g/dL Normal 28.4-34.8 [facility] Comment on above: Performed By: #### C BC #### [facility] [address] [place], [place] [id number] Blade Aligner: Renan Huerta MD MCV (RBC) [Entitic vol] 89.7 fL Normal 82.6-102.9 [facility] Comment on above: Performed By: #### C BC #### [address] [place], [place] [id number] Blade Aligner: Renan Huerta MD Monocytes (Bld) [#/Vol] 0.43 10*3/uL Normal 0.10-1.20 [facility] Comment on above: Performed By: #### C BC #### [facility] [address] [place], [place] 7816183 Blade Aligner: Renan Huerta MD Monocytes/100 WBC (Bld) 8 % Normal 3-12 [facility] Comment on above: Performed By: #### C BC #### [facility] [address] [place] [id number] Blade Aligner: Renan Huerta MD Neutrophil (Seg) 68 % High 36-65 [facility] Comment on above: Performed By: #### C BC #### [facility] [address] [place] [id number] Blade Aligner: Renan Huerta MD NRBC Automated 0.0 per 100 WBC Normal 0.0 [facility] Comment on above: Performed By: #### C BC #### [facility] [address] [place] [facility]83 Blade Aligner: Renan Huerta MD Platelet mean volume (Bld) [Entitic vol] 10.2 fL Normal 8.1-13.5 [facility] Comment on above: Performed By: #### C BC #### [facility] [address] [place] [facility]83 Blade Aligner: Renan Huerta MD Platelets (Bld) [#/Vol] 197 10*3/uL Normal 138-453 [facility] Comment on above: Performed By: #### C BC #### [address] [place] [facility]83 Blade Aligner: Renan Huerta MD RBC (Bld) [#/Vol] 2.62 10*6/uL Low 3.95-5.11 [facility] Comment on above: Performed By: #### C BC #### [address] [place] [id number] Blade Aligner: Renan Huerta MD WBC (Bld) [#/Vol] 5.7 10*3/uL Normal 3.5-11.3 [facility] Comment on above: Performed By: #### C BC #### [address] [place], [place] [id number] Blade Aligner: Renan Huerta MD Comp Metabolic Pr/rfx MGon 0 - Albumin [Mass/Vol] 2.9 g/dL Low 3.5-5.2 [facility] Comment on above: Performed By: #### C BC #### [facility] [address] [place] [facility]83 Blade Aligner: Renan Huerta MD Albumin/Glob Ratio 1.6 Normal 1.0-2.5 [facility] Comment on above: Performed By: #### C BC #### [facility] [address] [place], [place] [id number] Blade Aligner: Renan Huerta MD Alkaline Phos 48 U/L Normal 35-104 [facility] Comment on above: Performed By: #### C BC #### [facility] [address] [place], [place] 6108983 Blade Aligner: Renan Huerta MD ALT [Catalytic activity/Vol] 11 U/L Normal 10-35 [facility] Comment on above: Performed By: #### C BC #### [facility] [address] [place], [place] 0547683 Blade Aligner: Renan Huerta MD Anion gap [Moles/Vol] 8 mmol/L Low 9-16 [facility] Comment on above: Performed By: #### C BC #### [facility] [address] [place] [address] Blade Aligner: Renan Huerta MD AST [Catalytic activity/Vol] 26 U/L Normal 10-35 [facility] Comment on above: Performed By: #### C BC #### [facility] [address] [place], [place] [phone] Blade Aligner: Renan Huerta MD Bilirubin [Mass/Vol] 0.3 mg/dL Normal 0.00-1.20 [facility] Comment on above: Performed By: #### C BC #### [facility] [address] [place] [address] Blade Aligner: Renan Huerta MD BUN/CRE Ratio 20 Normal 9-20 [facility] Comment on above: Performed By: #### C BC #### [facility] [address] [place], [place] 7904483 Blade Aligner: Renan Huerta MD Calcium [Mass/Vol] 7.4 mg/dL Low 8.6-10.4 [facility] Comment on above: Performed By: #### C BC #### [facility] [address] [place] [id number] Blade Aligner: Renan Huerta MD Chloride [Moles/Vol] 111 mmol/L High 98-107 [facility] Comment on above: Performed By: #### C BC #### [facility] [address] [place] [id number] Blade Aligner: Renan Huerta MD CO2 [Moles/Vol] 18 mmol/L Low 20-31 [facility] Comment on above: Performed By: #### C BC #### [facility] [address] [place] [address] [address]. [place] 9[address]1983 Blade Aligner: Renan Huerta MD Creatinine [Mass/Vol] 1.5 mg/dL High 0.50-0.90 [facility] Comment on above: Performed By: #### C BC #### [facility] [address] [place] [address] [place] [address] Blade Aligner: Renan Huerta MD GFR/1.73 sq M.predicted among non-blacks MDRD (S/P/Bld) [Vol rate/Area] 35 mL/min/{1.73_m2} Low >60 [facility] Comment on above: Result Comment: These results are not intended for [...] following therapy that affects renal tubular secretion. Performed By: #### C BC #### [facility] [address] [place] [address] Blade Aligner: Renan Huerta MD Glucose [Mass/Vol] 83 mg/dL Normal 74-99 [facility] Comment on above: Performed By: #### C BC #### [facility] [address] [place], [place] 5592683 Blade Aligner: Renan Huerta MD Potassium [Moles/Vol] 3.7 mmol/L Normal 3.7-5.3 [facility] Comment on above: Performed By: #### C BC #### [facility] [address] [place], [place] 2431783 Blade Aligner: Renan Huerta MD Protein [Mass/Vol] 4.7 g/dL Low 6.6-8.7 [facility] Comment on above: Performed By: #### C BC #### [facility] [address] [place], [place] 5447983 Blade Aligner: Renan Huerta MD Sodium [Moles/Vol] 137 mmol/L Normal 136-145 [facility] Comment on above: Performed By: #### C BC #### [facility] [address] [place], [place] 1355383 Blade Aligner: Renan Huerta MD Urea nitrogen [Mass/Vol] 30 mg/dL High 8-23 [facility] Comment on above: Performed By: #### C BC #### [facility] [address] [place] [address] [place] [address] Blade Aligner: Renan Huerta MD Comprehensive Metabolic Pane l w/ Reflex to MGon 03-23-2025 Albumin [Mass/Vol] 2.9 g/dL Low 3.5 - 5.2 g/dL [facility] Albumin/Globulin [Mass ratio] 1.6 {ratio} 1.0 - 2.5 [facility] ALP [Catalytic activity/Vol] 48 U/L 35 - 104 U/L [facility] ALT [Catalytic activity/Vol] 11 U/L 10 - 35 U/L [facility] Anion gap [Moles/Vol] 8 mmol/L Low 9 - 16 mmol/L [facility] AST [Catalytic activity/Vol] 26 U/L 10 - 35 U/L [facility] Bilirubin [Mass/Vol] 0.3 mg/dL 0.00 - 1.20 mg/dL [facility] Calcium [Mass/Vol] 7.4 mg/dL Low 8.6 - 10. 4 mg/dL [facility] Chloride [Moles/Vol] 111 mmol/L High 98 - 10 7 mmol/L [facility] CO2 [Moles/Vol] 18 mmol/L Low 20 - 31 mmol/L [facility] Creatinine [Mass/Vol] 1.5 mg/dL High 0.50 - 0.90 mg/dL [facility] Est, Glom Filt Rate 35 Low - PINF [facility] Comment on above: These results are not intended for use [...] following therapy that affects renal tubular secretion. Glucose [Mass/Vol] 83 mg/dL 74 - 99 mg/dL [facility] Interpretation and review of laboratory results Abnormal [facility] Potassium [Moles/Vol] 3.7 mmol/L 3.7 - 5.3 mmol/L [facility] Protein [Mass/Vol] 4.7 g/dL Low 6.6 - 8.7 g/dL [facility] Sodium [Moles/Vol] 137 mmol/L 136 - 145 mmol/L [facility] Urea nitrogen [Mass/Vol] 30 mg/dL High 8 - 23 mg/dL [facility] Urea nitrogen/Creatinine [Mass ratio] 20 mg/mg 9 - 20 [facility] PTon 03-23-2025 INR Coag (PPP) [Relative time] 1.7 {INR} Normal [facility] Comment on above: Result Comment: Therapeutic Range: Moderate Anticoagulant Intensity: INR = 2.0-3.0 High Anticoagulant Intensity: INR = 2.5-3.5 Performed By: #### C BC #### [facility] [address] [place] [address] Blade Aligner: Renan Huerta MD PT Coag (PPP) [Time] 20.6 s High 12.0-15.0 [facility] Comment on above: Performed By: #### C BC #### [facility] [address] [place] [address] Blade Aligner: Renan Huerta MD Protime-INRon 03-23-2025 INR Coag (PPP) [Relative time] 1.7 {INR} [facility] Comment on above: Therapeutic Range: Moderate Anticoagulant Intensity: INR = 2.0-3.0 High Anticoagulant Intensity: INR = 2.5-3.5 Interpretation and review of laboratory results Abnormal [facility] PT Coag (PPP) [Time] 20.6 s High [facility] Arterial Blood Gaseson 03-22 Amado Test YES Normal [facility] Comment on above: Performed By: #### C BC #### [facility] [address] [place] [address] Blade Aligner: Renan Huerta MD Body Temp. 37.0 [facility] Comment on above: Performed By: #### C BC #### [facility] [address] [place] [address] Blade Aligner: Renan Huerta MD FIO2 21 [facility] Comment on above: Performed By: #### C BC #### [facility] [address] [place] [address] Blade Aligner: Renan Huerta MD HCO3 (Bld) [Moles/Vol] 16.6 mmol/L Low 22-26 [facility] Comment on above: Performed By: #### C BC #### [facility] [address] [place] [address] Blade Aligner: Renan Huerta MD Negative Base Excess 6.2 mmol/L High 0.0-2.0 [facility] Comment on above: Performed By: #### C BC #### [facility] [address] [place], [place] [phone] Blade Aligner: Renan Huerta MD O2 Device/Flow/% ROOM AIR Normal [facility] Comment on above: Performed By: #### C BC #### [facility] [address] [place], [place] 4025583 Blade Aligner: Renan Huerta MD Oxygen (Bld) [Partial pressure] 105.2 mm[Hg] High 80.0-100.0 [facility] Comment on above: Performed By: #### C BC #### [facility] [address] [place], [place] 1080683 Blade Aligner: Renan Huerta MD Oxygen saturation in Blood 98.0 % Normal 95-98 [facility] Comment on above: Performed By: #### C BC #### [facility] [address] [place], [place] 8668983 Blade Aligner: Renan Huerta MD pCO2 26.6 mmHg Low 35-45 [facility] Comment on above: Performed By: #### C BC #### [facility] [address] [place], [place] 2474583 Blade Aligner: Renan Huerta MD pCO2 Adj'd for Temp 26.6 Low 35.0-45.0 [facility] Comment on above: Performed By: #### C BC #### [facility] [address] [place], [place] 6878783 Blade Aligner: Renan Huerta MD pH (Bld) 7.412 [pH] Normal 7.35-7.45 [facility] Comment on above: Performed By: #### C BC #### [facility] [address] [place] [phone] Blade Aligner: Renan Huerta MD pH Adjst'd for Temp. 7.412 Normal 7.350-7 .45 0 [facility] Comment on above: Performed By: #### C BC #### [facility] [address] [place], [place] [phone] Blade Aligner: Renan Huerta MD pO2 Adjst'd for Temp 105.2 mmHg High 80.0-100.0 [facility] Comment on above: Performed By: #### C BC #### [facility] [address] [place], [place] 9582883 Blade Aligner: Renan Huerta MD Site Drawn Left Radial Artery Normal [facility] Comment on above: Performed By: #### C BC #### [facility] [address] [place] [address] Blade Aligner: Renan Huerta MD Blood Gas, Arterialon 2024 Arterial patency Wrist artery --pre arterial puncture YES [facility] Body site Left Radial Artery [facility] HCO3 (Bld) [Moles/Vol] 16.6 mmol/L Low 22 - 26 mmol/L [facility] Interpretation and review of laboratory results Abnormal [facility] Negative Base Excess, Art 6.2 mmol/L High 0.0 - 2.0 mmol/L [facility] Oxygen gas flow Oxygen delivery system ROOM AIR [facility] Oxygen saturation in Blood 98 % 95 - 98 % [facility] Oxygen/Inspired gas Respiratory system --on ventilator 21 [facility] pCO2, Art, Temp Adj 26.6 Low 35.0 - 45.0 [facility] pCO2, Arterial 26.6 Low [facility] pH, Art, Temp Adj 7.412 7.350 - 7.450 [facility] pH, Arterial 7.412 7.35 - 7.45 [facility] pO2, Art, Temp Adj 105.2 High [facility] pO2, Arterial 105.2 High [facility] CBC auto differentialon 08-0 Basophils (Bld) [#/Vol] 0.05 10*3/uL [facility] Basophils/100 WBC (Bld) 1 % 0 - 2 % B on [facility] Eosinophils (Bld) [#/Vol] 0.11 10*3/uL [facility] Eosinophils/100 WBC (Bld) 3 % 1 - 4 % [facility] Erythrocyte distribution width (RBC) [Ratio] 16.6 % High 11.8 - 14.4 % [facility] Hematocrit (Bld) [Volume fraction] 22.9 % Low 36.3 - 47.1 % [facility] Hemoglobin (Bld) [Mass/Vol] 7.2 g/dL Low 11.9 - 15.1 g/dL [facility] Immature granulocytes (Bld) [#/Vol] 0.03 10*3/uL [facility] Immature granulocytes/100 WBC (Bld) 1 % High 0 [facility] Interpretation and review of laboratory results Abnormal [facility] Lymphocytes/100 WBC (Bld) 20 % Low 24 - 43 % [facility] Lymphocytes/100 WBC (Bld) 0.91 % Low [facility] MCH (RBC) [Entitic mass] 28 pg 25.2 - 33.5 pg [facility] MCHC (RBC) [Mass/Vol] 31.4 g/dL 28.4 - 34.8 g/dL [facility] MCV (RBC) [Entitic vol] 89.1 fL 82.6 - 102.9 fL [facility] Monocytes/100 WBC (Bld) 8 % 3 - 12 % B on [facility] Monocytes/100 WBC (Bld) 0.35 % B on [facility] Neutrophils/100 WBC (Bld) 68 % High 36 - 65 % [facility] Nucleated RBC/100 WBC (Bld) [Ratio] 0 % 0.0 per 100 WBC [facility] Platelet mean volume (Bld) [Entitic vol] 10.3 fL 8.1 - 13.5 fL [facility] Platelets (Bld) [#/Vol] 175 10*3/uL [facility] RBC (Bld) [#/Vol] 2.57 10*6/uL Low 3.95 - 5.11 m/uL [facility] Segmented neutrophils/100 WBC (Bld) 3.03 % [facility] WBC other (Bld) [#/Vol] 4.5 B on [facility] CBC with Diffon 03-22-2025 Abs. Basophil 0.05 k/uL Normal 0.00-0.20 [facility] Comment on above: Performed By: #### C DP, CMPX, PT #### [address] [place] [address] Blade Aligner: Renan Huerta MD Abs.Imm.Granulocyte 0.03 k/uL Normal 0.00-0.30 [facility] Comment on above: Performed By: #### C DP, CMPX, PT #### [address] [place] [address] Blade Aligner: Renan Huerta MD Abs.Neutrophil (Seg) 3.03 k/uL Normal 1.50-8.10 [facility] Comment on above: Performed By: #### C DP, CMPX, PT #### [address] [place] [address] Blade Aligner: Renan Huerta MD Basophils/100 WBC (Bld) 1 % Normal 0-2 [facility] Comment on above: Performed By: #### C DP, CMPX, PT #### [address] [place] [id number] Blade Aligner: Renan Huerta MD Eosinophils (Bld) [#/Vol] 0.11 10*3/uL Normal 0.00-0.44 [facility] Comment on above: Performed By: #### C DP, CMPX, PT #### [address] [place] [id number] Blade Aligner: Renan Huerta MD Eosinophils/100 WBC (Bld) 3 % Normal 1-4 [facility] Comment on above: Performed By: #### C DP, CMPX, PT #### [address] [place], [facility]83 Blade Aligner: Renan Huerta MD Erythrocyte distribution width (RBC) [Ratio] 16.6 % High 11.8-14.4 [facility] Comment on above: Performed By: #### C DP, CMPX, PT #### [address] [place], [facility]83 Blade Aligner: Renan Huerta MD Hematocrit (Bld) [Volume fraction] 22.9 % Low 36.3-47.1 [facility] Comment on above: Performed By: #### C DP, CMPX, PT #### [address] [place], [facility]54 ( Blade Aligner: Renan Huerta MD Hemoglobin (Bld) [Mass/Vol] 7.2 g/dL Low 11.9-15.1 [facility] Comment on above: Performed By: #### C DP, CMPX, PT #### [address] [place], [facility]83 Blade Aligner: Renan Huerta MD Immature granulocytes/100 WBC (Bld) 1 % High 0 [facility] Comment on above: Performed By: #### C DP, CMPX, PT #### [facility] [address] [place] [address] Dr. [place], [facility]83 Blade Aligner: Renan Huerta MD Lymphocytes (Bld) [#/Vol] 0.91 10*3/uL Low 1.10-3.70 [facility] Comment on above: Performed By: #### C DP, CMPX, PT #### [address] [place], [facility] Blade Aligner: Renan Huerta MD Lymphocytes/100 WBC (Bld) 20 % Low 24-43 [facility] Comment on above: Performed By: #### C DP, CMPX, PT #### [facility] [address] [place], [place] [id number] Blade Aligner: Renan Huerta MD MCH (RBC) [Entitic mass] 28.0 pg Normal 25.2-33.5 [facility] Comment on above: Performed By: #### C DP, CMPX, PT #### [facility] [address] [place] [address] Blade Aligner: Renan Huerta MD MCHC (RBC) [Mass/Vol] 31.4 g/dL Normal 28.4-34.8 [facility] Comment on above: Performed By: #### C DP, CMPX, PT #### [address] [place], [place] [address] Blade Aligner: Renan Huerta MD MCV (RBC) [Entitic vol] 89.1 fL Normal 82.6-102.9 [facility] Comment on above: Performed By: #### C DP, CMPX, PT #### [address] [place], [facility] Blade Aligner: Renan Huerta MD Monocytes (Bld) [#/Vol] 0.35 10*3/uL Normal 0.10-1.20 [facility] Comment on above: Performed By: #### C DP, CMPX, PT #### [address] [place] [address] Blade Aligner: Renan Huerta MD Monocytes/100 WBC (Bld) 8 % Normal 3-12 [facility] Comment on above: Performed By: #### C DP, CMPX, PT #### [facility] [address] [place], [place] [id number] Blade Aligner: Renan Huerta MD Neutrophil (Seg) 68 % High 36-65 [facility] Comment on above: Performed By: #### C DP, CMPX, PT #### [facility] [address] [place], [place] [id number] Blade Aligner: Renan Huerta MD NRBC Automated 0.0 per 100 WBC Normal 0.0 [facility] Comment on above: Performed By: #### C DP, CMPX, PT #### [facility] [address] [place], [place] [id number] Blade Aligner: Renan Huerta MD Platelet mean volume (Bld) [Entitic vol] 10.3 fL Normal 8.1-13.5 [facility] Comment on above: Performed By: #### C DP, CMPX, PT #### [address] [place], [place] [id number] Blade Aligner: Renan Huerta MD Platelets (Bld) [#/Vol] 175 10*3/uL Normal 138-453 [facility] Comment on above: Performed By: #### C DP, CMPX, PT #### [address] [place], [place] [id number] Blade Aligner: Renan Huerta MD RBC (Bld) [#/Vol] 2.57 10*6/uL Low 3.95-5.11 [facility] Comment on above: Performed By: #### C DP, CMPX, PT #### [address] [place], [place] [id number] Blade Aligner: Renan Huerta MD WBC (Bld) [#/Vol] 4.5 10*3/uL Normal 3.5-11.3 [facility] Comment on above: Performed By: #### C DP, CMPX, PT #### [address] [place] [address] Blade Aligner: Renan Huerta MD CT FACIAL BONES WO CONTRASTo n 03-22-2025 CT FACIAL BONES WO CONTRAST EXAMINATION: CT OF THE HEAD WITHOUT CONTRAST; CT OF THE FACE WITHOUT CONTRAST 03/21/2025 1:27 pm TECHNIQUE: CT of the head was performed without the administration of intravenous contrast. Automated exposure control, iterative reconstruction, and/or weight based adjustment of the mA/kV was utilized to reduce the radiation dose to as low as reasonably achievable.; CT of the face was performed without the administration of intravenous contrast. Multiplanar reformatted images are provided for review. Automated exposure control, iterative reconstruction, and/or weight based adjustment of the mA/kV was utilized to reduce the radiation dose to as low as reasonably achievable. COMPARISON: None HISTORY: ORDERING SYSTEM PROVIDED HISTORY: Injury TECHNOLOGIST PROVIDED HISTORY: Injury Decision Support Exception - unselect if not a suspected or confirmed emergency medical condition->Emergency Medical Condition (MA) FINDINGS: BRAIN/VENTRICLES: The cerebral and cerebellar parenchyma demonstrate volume loss with chronic microvascular white matter ischemic disease. No areas of hemorrhage, mass, or midline shift. No abnormal extra-axial fluid collections. The ventricles are proportional to the cerebral sulci. Barba-white differentiation is maintained without evidence of an acute infarct. ORBITS: Lens implants from prior cataract surgery are noted. The orbits are otherwise unremarkable. SINUSES: There is a small right sphenoid mucous retention cyst. The rest of the visualized paranasal sinuses are well aerated. The mastoid air cells are clear. SOFT TISSUES/SKULL: The calvarium is intact. Hyperostosis frontalis interna. No appreciable scalp soft tissue swelling is identified. Multiple teeth are missing. No acute facial bone fracture. Mild soft tissue swelling is noted along the left lateral aspect of the face. Degenerative changes are noted along the temporomandibular joints. IMPRESSION: 1. No acute intracranial abnormality. 2. No acute facial bone fracture. 3. Mild soft tissue swelling along the left lateral aspect of the face. Interpreted by: Aleksandr Mota MD Signed by: Aleksandr Mota MD 03/22/25 Final result Normal [facility] CT HEAD WO CONTRASTon 2024 CT HEAD WO CONTRAST EXAMINATION: CT OF THE HEAD WITHOUT CONTRAST; CT OF THE FACE WITHOUT CONTRAST 03/21/2025 1:27 pm TECHNIQUE: CT of the head was performed without the administration of intravenous contrast. Automated exposure control, iterative reconstruction, and/or weight based adjustment of the mA/kV was utilized to reduce the radiation dose to as low as reasonably achievable.; CT of the face was performed without the administration of intravenous contrast. Multiplanar reformatted images are provided for review. Automated exposure control, iterative reconstruction, and/or weight based adjustment of the mA/kV was utilized to reduce the radiation dose to as low as reasonably achievable. COMPARISON: None HISTORY: ORDERING SYSTEM PROVIDED HISTORY: Injury TECHNOLOGIST PROVIDED HISTORY: Injury Decision Support Exception - unselect if not a suspected or confirmed emergency medical condition->Emergency Medical Condition (MA) FINDINGS: BRAIN/VENTRICLES: The cerebral and cerebellar parenchyma demonstrate volume loss with chronic microvascular white matter ischemic disease. No areas of hemorrhage, mass, or midline shift. No abnormal extra-axial fluid collections. The ventricles are proportional to the cerebral sulci. Barba-white differentiation is maintained without evidence of an acute infarct. ORBITS: Lens implants from prior cataract surgery are noted. The orbits are otherwise unremarkable. SINUSES: There is a small right sphenoid mucous retention cyst. The rest of the visualized paranasal sinuses are well aerated. The mastoid air cells are clear. SOFT TISSUES/SKULL: The calvarium is intact. Hyperostosis frontalis interna. No appreciable scalp soft tissue swelling is identified. Multiple teeth are missing. No acute facial bone fracture. Mild soft tissue swelling is noted along the left lateral aspect of the face. Degenerative changes are noted along the temporomandibular joints. IMPRESSION: 1. No acute intracranial abnormality. 2. No acute facial bone fracture. 3. Mild soft tissue swelling along the left lateral aspect of the face. Interpreted by: Aleksandr Mota MD Signed by: Aleksandr Mota MD 03/22/25 Final result Normal [facility] Cardiac echo study Procedure on 03-22-2025 Ao Root Index 1.33 cm/m2 [facility] Aortic Root 1.8 cm [facility] Aortic Sinus Valsalva 3.5 cm [facility] Aortic Sinus Valsalva Index 2.59 cm/m2 [facility] AR Max Velocity PISA 3.7 m/s [facility] AR PHT 423 ms [facility] Ascending Aorta 3 cm [facility] Ascending Aorta Index 2.22 cm/m2 [facility] AV Area by Peak Velocity 2.3 cm2 [facility] AV Area by VTI 2.3 cm2 [place] [facility] AV Cusp Mmode 1.3 cm [facility] AV Mean Gradient 4 mmHg [facility] AV Mean Velocity 0.9 m/s [facility] AV Peak Gradient 7 mmHg [facility] AV Peak Velocity 1.3 m/s [facility] AV Velocity Ratio 0.62 [facility] AV VTI 27.3 cm [facility] BILLY/BSA Peak Velocity 1.7 cm2/m2 [facility] BILLY/BSA VTI 1.7 cm2/m2 [facility] Body surface area Derived from formula 1.31 m2 [facility] E/E' Lateral 10.09 [facility] EF BP 60 % 55 - 100 % [facility] EF Physician 60 % [facility] Est. RA Pressure 3 mmHg [facility] Fractional Shortening 2D 28 % 28 - 44 % [facility] Interpretation and review of laboratory results Abnormal [facility] IVSd 1.7 cm Abnormal 0.6 - 0.9 cm [facility] LA Area 2C 14.5 cm2 [facility] LA Area 4C 12.2 cm2 [facility] LA Major [place] 3.9 cm [facility] LA Minor [place] 4.5 cm [facility] LA Volume BP 36 mL 22 - 52 mL [facility] LA Volume Index BP 27 ml/m2 16 - 34 ml/m2 [facility] LA Volume Index MOD A2C 28 ml/m2 16 - 34 ml/m2 [facility] LA Volume Index MOD A4C 22 ml/m2 16 - 34 ml/m2 [facility] LA Volume MOD A2C 38 mL 22 - 52 mL [facility] LA Volume MOD A4C 30 mL 22 - 52 mL [facility] LV E' Lateral Velocity 5.55 cm/s [facility] LV EDV A2C 56 mL [facility] LV EDV A4C 64 mL [facility] LV EDV Index A2C 41 mL/m2 [facility] LV EDV Index A4C 47 mL/m2 [facility] LV Ejection Fraction A2C 60 % [facility] Ejection Fraction A4C 61 % [facility] LV ESV A2C 23 mL [facility] LV ESV A4C 25 mL [facility] LV ESV Index A2C 17 mL/m2 [facility] LV ESV Index A4C 19 mL/m2 [facility] [employer] [facility] LV Mass 2D 153 g 67 - 162 g [facility] LV Mass 2D Index 113.4 g/m2 Abnormal 43 - 95 g/m2 [facility] LV RWT Ratio 0.69 [facility] LVIDd 3.2 cm Abnormal 3.9 - 5.3 cm [facility] LVIDd Index 2.37 cm/m2 [facility] LVIDs 2.3 cm [facility] LVIDs Index 1.7 cm/m2 [facility] LVOT Area 3.8 cm2 [facility] [employer] LVOT Diameter 2.2 cm [facility] LVOT Mean Gradient 1 mmHg [facility] LVOT Peak Gradient 3 mmHg [facility] LVOT Peak Velocity 0.8 m/s [facility] LVOT Stroke Volume Index 46.4 mL/m2 [facility] LVOT SV 62.7 ml [facility] LVOT VTI 16.5 cm [facility] [employer] LVOT:AV VTI Index 0.6 [facility] LVPWd 1.1 cm Abnormal 0.6 - 0.9 cm [facility] MV A Velocity 0.97 m/s [facility] MV E Velocity 0.56 m/s [facility] MV E Wave Deceleration Time 290 ms [facility] MV E/A 0.58 [facility] PV Max Velocity 0.9 m/s [facility] PV Peak Gradient 3 mmHg [facility] [employer] [facility] RVSP 35 mmHg [facility] Sinotubular [place] 1.7 cm [facility] TAPSE 1.8 cm 1.7 cm [facility] TR Max Velocity 2.83 m/s [facility] TR Peak Gradient 32 mmHg Flory Burgos urs [facility] Addendum by Toni Moore MD on 03/22/2025 12:58 PM EDT Left Ventricle: Normal left ventricular systolic function with a visually estimated EF of 55 - 60%. Mildly increased wall thickness. Severe septal thickening.IVSd is 1.7 cm. Normal wall motion. Grade I diastolic dysfunction with normal LAP. No LVOT obstruction at rest. LVOT pressure gradient does not change with Valsalva. Aortic Valve: Thickened cusps. Calcified cusps. Sclerosis of the aortic valve cusps. Mild to moderate regurgitation. The valve is functionall bicuspid in morphology. Tricuspid Valve: Mild to moderate regurgitation. RVSP is 35 mmHg. Mildly elevated RVSP, consistent with mild pulmonary hypertension. Image quality is adequate. Compared to the previous study on 04/03/22, the patients aortic regurgitation has increased from mild to more mild to moderate in severity. Consider repeat imaging in 1-2 years if clinically indicated. Left Ventricle Normal left ventricular systolic function with a visually estimated EF of 55 - 60%. Mildly increased wall thickness. Severe septal thickening.IVSd is 1.7 cm. Normal wall motion. Grade I diastolic dysfunction with normal LAP. No LVOT obstruction at rest. LVOT pressure gradient does not change with Valsalva. Right Ventricle Right ventricle size is normal. Normal systolic function. Left Atrium Left atrium size is normal. Right Atrium Right atrium size is normal. IVC/SVC IVC diameter is normal or and decreases greater than 50% during inspiration; therefore the estimated right atrial pressure is normal (~3 mmHg). IVC size is normal. Mitral Valve There is annular calcification noted. Mild regurgitation. No stenosis noted. Tricuspid Valve Valve structure is normal. Mild to moderate regurgitation. RVSP is 35 mmHg. No stenosis noted. Mildly elevated RVSP, consistent with mild pulmonary hypertension. Aortic Valve Thickened cusps. Calcified cusps. Sclerosis of the aortic valve cusps. Mild to moderate regurgitation. The valve is functionall bicuspid in morphology. No stenosis. Pulmonic Valve The pulmonic valve visualization is suboptimal but appears to be functioning normally. Physiologically normal regurgitation. No stenosis noted. Ascending Aorta Normal sized ascending aorta. Mildly dilated aortic root. Ao root diameter is 1.8 cm. Aortic Sinus Valsalva is 3.5 cm. Ascending Aorta is 3.0 cm. Pericardium No pericardial effusion. Study Details Image quality: adequate. No contrast was given. [facility]ory [facility] Radiology Study observation (narrative) Flory fleming [facility] Comp Metabolic Pr/rfx MGon 0 - Albumin [Mass/Vol] 3.0 g/dL Low 3.5-5.2 [facility] Comment on above: Performed By: #### C DP, CMPX, PT #### [facility] [address] [place] [address] Blade Aligner: Renan Huerta MD Albumin/Glob Ratio 1.6 Normal 1.0-2.5 [facility] Comment on above: Performed By: #### C DP, CMPX, PT #### [address] [place] [address] Blade Aligner: Renan Huerta MD Alkaline Phos 50 U/L Normal 35-104 [facility] Comment on above: Performed By: #### C DP, CMPX, PT #### [facility] [address] [place] [address] Blade Aligner: Renan Huerta MD ALT [Catalytic activity/Vol] 11 U/L Normal 10-35 [facility] Comment on above: Performed By: #### C DP, CMPX, PT #### [address] [place] [address] Blade Aligner: Renan Huerta MD Anion gap [Moles/Vol] 10 mmol/L Normal 9-16 [facility] Comment on above: Performed By: #### C DP, CMPX, PT #### [facility] [address] [place] [address] Blade Aligner: Renan Huerta MD AST [Catalytic activity/Vol] 26 U/L Normal 10-35 [facility] Comment on above: Performed By: #### C DP, CMPX, PT #### [facility] [address] [place] [address] Blade Aligner: Renan Huerta MD Bilirubin [Mass/Vol] 0.4 mg/dL Normal 0.00-1.20 [facility] Comment on above: Performed By: #### C DP, CMPX, PT #### [facility] [address] [place], [place] [id number] Blade Aligner: Renan Huerta MD BUN/CRE Ratio 17 Normal 9-20 [facility] Comment on above: Performed By: #### C DP, CMPX, PT #### [facility] [address] [place], [place] [id number] Blade Aligner: Renan Huerta MD Calcium [Mass/Vol] 7.4 mg/dL Low 8.6-10.4 [facility] Comment on above: Performed By: #### C DP CMPX, PT #### [facility] [address] [place], [place] [id number] Blade Aligner: Renan Huerta MD Chloride [Moles/Vol] 107 mmol/L Normal 98-107 [facility] Comment on above: Performed By: #### C ERNIE CMPX, PT #### [facility] [address] [place] [address] [place] [place], [place] [id number] Blade Aligner: Renan Huerta MD CO2 [Moles/Vol] 19 mmol/L Low 20-31 [facility] Comment on above: Performed By: #### C DP CMPX, PT #### [facility] [address] [place] [address] Dr. [place], [place] [id number] Blade Aligner: Renan Huerta MD Creatinine [Mass/Vol] 2.0 mg/dL High 0.50-0.90 [facility] Comment on above: Performed By: #### C DP, CMPX, PT #### [facility] [address] [place], [place] [id number] Blade Aligner: Renan Huerta MD GFR/1.73 sq M.predicted among non-blacks MDRD (S/P/Bld) [Vol rate/Area] 24 mL/min/{1.73_m2} Low >60 [facility] Comment on above: Result Comment: These results are not intended for [...] following therapy that affects renal tubular secretion. Performed By: #### C DP CMPX, PT #### [facility] [address] [place] [address] [place] [address] Blade Aligner: Renan Huerta MD Glucose [Mass/Vol] 82 mg/dL Normal 74-99 [facility] Comment on above: Performed By: #### C ERNIE CMPX, PT #### [address] [place] [address] Blade Aligner: Renan Huerta MD Potassium [Moles/Vol] 4.2 mmol/L Normal 3.7-5.3 [facility] Comment on above: Performed By: #### C ERNIE CMPX, PT #### [address] [place] [address] Blade Aligner: Renan Huerta MD Protein [Mass/Vol] 4.9 g/dL Low 6.6-8.7 [facility] Comment on above: Performed By: #### C DP CMPX, PT #### [facility] [address] [place] [address] [place] [address] Blade Aligner: Renan Huerta MD Sodium [Moles/Vol] 136 mmol/L Normal 136-145 [facility] Comment on above: Performed By: #### C DP CMPX, PT #### [facility] [address] [place] [address] [place] [address] Blade Aligner: Renan Huerta MD Urea nitrogen [Mass/Vol] 33 mg/dL High 8-23 [facility] Comment on above: Performed By: #### C DP, CMPX, PT #### [facility] [address] [place] [address] Blade Aligner: Renan Huerta MD Comprehensive Metabolic Pane l w/ Reflex to MGon 03-22-2025 Albumin [Mass/Vol] 3 g/dL Low 3.5 - 5.2 g/dL [facility] Albumin/Globulin [Mass ratio] 1.6 {ratio} 1.0 - 2.5 [facility] ALP [Catalytic activity/Vol] 50 U/L 35 - 104 U/L [facility] ALT [Catalytic activity/Vol] 11 U/L 10 - 35 U/L [facility] Anion gap [Moles/Vol] 10 mmol/L 9 - 16 mmol/L [facility] AST [Catalytic activity/Vol] 26 U/L 10 - 35 U/L [facility] Bilirubin [Mass/Vol] 0.4 mg/dL 0.00 - 1.20 mg/dL [facility] Calcium [Mass/Vol] 7.4 mg/dL Low 8.6 - 10. 4 mg/dL [facility] Chloride [Moles/Vol] 107 mmol/L 98 - 10 7 mmol/L [facility] CO2 [Moles/Vol] 19 mmol/L Low 20 - 31 mmol/L [facility] Creatinine [Mass/Vol] 2.0 mg/dL High 0.50 - 0.90 mg/dL [facility] Est, Glom Filt Rate 24 Low - PINF [facility] Comment on above: These results are not intended for use [...] following therapy that affects renal tubular secretion. Glucose [Mass/Vol] 82 mg/dL 74 - 99 mg/dL [facility] Interpretation and review of laboratory results Abnormal [facility] Potassium [Moles/Vol] 4.2 mmol/L 3.7 - 5.3 mmol/L [facility] Protein [Mass/Vol] 4.9 g/dL Low 6.6 - 8.7 g/dL [facility] Sodium [Moles/Vol] 136 mmol/L 136 - 145 mmol/L [facility] Urea nitrogen [Mass/Vol] 33 mg/dL High 8 - 23 mg/dL [facility] Urea nitrogen/Creatinine [Mass ratio] 17 mg/mg 9 - 20 [facility] EKG Rhythm Stripon [facility] Microscopic Urinalysison Bacteria LM Ql (Urine sed) TRACE Abnormal None [facility] Casts LM.LPF (Urine sed) [#/Area] 2 TO 5 HYALINE /LPF [facility] Epithelial cells LM.HPF (Urine sed) [#/Area] 5 TO 10 [facility] Interpretation and review of laboratory results Abnormal [facility] RBC LM.HPF (Urine sed) [#/Area] None [facility] WBC LM.HPF (Urine sed) [#/Area] 10 TO 20 [facility] No Panel Informationon 03-22 1. No acute intracranial abnormality. 2. No acute facial bone fracture. 3. Mild soft tissue swelling along the left lateral aspect of the face. PN RIS CONSOLIDATED EXAMINATION: CT OF THE HEAD WITHOUT CONTRAST; CT OF THE FACE WITHOUT CONTRAST 03/21/2025 1:27 pm TECHNIQUE: CT of the head was performed without the administration of intravenous contrast. Automated exposure control, iterative reconstruction, and/or weight based adjustment of the mA/kV was utilized to reduce the radiation dose to as low as reasonably achievable.; CT of the face was performed without the administration of intravenous contrast. Multiplanar reformatted images are provided for review. Automated exposure control, iterative reconstruction, and/or weight based adjustment of the mA/kV was utilized to reduce the radiation dose to as low as reasonably achievable. COMPARISON: None HISTORY: ORDERING SYSTEM PROVIDED HISTORY: Injury TECHNOLOGIST PROVIDED HISTORY: Injury Decision Support Exception - unselect if not a suspected or confirmed emergency medical condition->Emergency Medical Condition (MA) FINDINGS: BRAIN/VENTRICLES: The cerebral and cerebellar parenchyma demonstrate volume loss with chronic microvascular white matter ischemic disease. No areas of hemorrhage, mass, or midline shift. No abnormal extra-axial fluid collections. The ventricles are proportional to the cerebral sulci. Barba-white differentiation is maintained without evidence of an acute infarct. ORBITS: Lens implants from prior cataract surgery are noted. The orbits are otherwise unremarkable. SINUSES: There is a small right sphenoid mucous retention cyst. The rest of the visualized paranasal sinuses are well aerated. The mastoid air cells are clear. SOFT TISSUES/SKULL: The calvarium is intact. Hyperostosis frontalis interna. No appreciable scalp soft tissue swelling is identified. Multiple teeth are missing. No acute facial bone fracture. Mild soft tissue swelling is noted along the left lateral aspect of the face. Degenerative changes are noted along the temporomandibular joints. [facility] RIS CONSOLIDATED Aleksandr Mota MD - 03/22/2025 EXAMINATION: CT OF THE HEAD WITHOUT CONTRAST; CT OF THE FACE WITHOUT CONTRAST 03/21/2025 1:27 pm TECHNIQUE: CT of the head was performed without the administration of intravenous contrast. Automated exposure control, iterative reconstruction, and/or weight based adjustment of the mA/kV was utilized to reduce the radiation dose to as low as reasonably achievable.; CT of the face was performed without the administration of intravenous contrast. Multiplanar reformatted images are provided for review. Automated exposure control, iterative reconstruction, and/or weight based adjustment of the mA/kV was utilized to reduce the radiation dose to as low as reasonably achievable. COMPARISON: None HISTORY: ORDERING SYSTEM PROVIDED HISTORY: Injury TECHNOLOGIST PROVIDED HISTORY: Injury Decision Support Exception - unselect if not a suspected or confirmed emergency medical condition->Emergency Medical Condition (MA) FINDINGS: BRAIN/VENTRICLES: The cerebral and cerebellar parenchyma demonstrate volume loss with chronic microvascular white matter ischemic disease. No areas of hemorrhage, mass, or midline shift. No abnormal extra-axial fluid collections. The ventricles are proportional to the cerebral sulci. Barba-white differentiation is maintained without evidence of an acute infarct. ORBITS: Lens implants from prior cataract surgery are noted. The orbits are otherwise unremarkable. SINUSES: There is a small right sphenoid mucous retention cyst. The rest of the visualized paranasal sinuses are well aerated. The mastoid air cells are clear. SOFT TISSUES/SKULL: The calvarium is intact. Hyperostosis frontalis interna. No appreciable scalp soft tissue swelling is identified. Multiple teeth are missing. No acute facial bone fracture. Mild soft tissue swelling is noted along the left lateral aspect of the face. Degenerative changes are noted along the temporomandibular joints. IMPRESSION: 1. No acute intracranial abnormality. 2. No acute facial bone fracture. 3. Mild soft tissue swelling along the left lateral aspect of the face. [facility] No Panel InformationOrdered By: Aleksandr Mota on 03-22-2025 [facility] Work Phone: PTon 03-22-2025 INR Coag (PPP) [Relative time] 1.8 {INR} Normal [facility] Comment on above: Result Comment: Therapeutic Range: Moderate Anticoagulant Intensity: INR = 2.0-3.0 High Anticoagulant Intensity: INR = 2.5-3.5 Performed By: #### C DP, CMPX, PT #### [facility] [address] [place] [address] [place] [address] Blade Aligner: Renan Huerta MD PT Coag (PPP) [Time] 21.4 s High 12.0-15.0 [facility] Comment on above: Performed By: #### C DP, CMPX, PT #### [facility] [address] [place] [address] [place] [address] Blade Aligner: Renan Huerta MD Protime-INRon 03-22-2025 INR Coag (PPP) [Relative time] 1.8 {INR} [facility] Comment on above: Therapeutic Range: Moderate Anticoagulant Intensity: INR = 2.0-3.0 High Anticoagulant Intensity: INR = 2.5-3.5 Interpretation and review of laboratory results Abnormal [facility] PT Coag (PPP) [Time] 21.4 s High [facility] Urinalysison 03-22-2025 Bilirubin Ql (U) SMALL Abnormal NEGATIVE [facility] Clarity (U) Clear Clear [facility] Color (U) Yellow Yellow [facility] Glucose Test strip (U) [Mass/Vol] Negative NEGATIVE mg/dL [facility] Hemoglobin Auto test strip Ql (U) Negative NEGATIVE [facility] Interpretation and review of laboratory results Abnormal [facility] Ketones (U) [Mass/Vol] Negative NEGAT ANSHUL mg/dL [facility] Leukocyte esterase Test strip Ql (U) TRACE Abnormal NEGATIVE [facility] Nitrite Ql (U) Negative NEGATIVE [place] [facility] pH (U) 6 [pH] 5.0 - 9.0 [facility] Protein (U) [Mass/Vol] TRACE Abnormal NEGAT ANSHUL mg/dL [facility] Specific gravity (U) [Rel density] 1.02 1.010 - 1.020 [facility] Urobilinogen Qn (U) Normal 0.0 - 1. 0 EU/dL [facility] Urinalysis, Routineon 2024 Bilirubin, SemiQt,Ur SMALL Abnormal NEG [facility] Comment on above: Performed By: #### U MYAH UA #### [facility] [address] [place] [address] Dr. [place], [facility] Blade Aligner: Renan Huerta MD Blood, Urine Negative Normal NEG [facility] Comment on above: Performed By: #### U MYAH UA #### [facility] [address] [place], [facility]83 Blade Aligner: Renan Huerta MD Clarity (U) Clear Normal CLEAR [facility] Comment on above: Performed By: #### U MYAH UA #### [facility] [address] [place] [address] [place] [address] Blade Aligner: Renan Huerta MD Color (U) Yellow Normal YEL [facility] Comment on above: Performed By: #### U MYAH UA #### [facility] [address] [place] [address] Dr. [place], [place] [id number] Blade Aligner: Renan Huerta MD Glucose Ql (U) Negative Normal NEG [facility] Comment on above: Performed By: #### U MICAO, UA #### [facility] [address] [place] [address] Dr. [place], [place] [id number] Blade Aligner: Renan Huerta MD Ketones Ql (U) Negative Normal NEG [facility] Comment on above: Performed By: #### U MICAO, UA #### [facility] [address] [place] [address] [place] [address] Blade Aligner: Renan Huerta MD Leukocyte esterase Test strip Ql (U) TRACE Abnormal NEG [facility] Comment on above: Performed By: #### U MICAO, UA #### [address] [place], [place] [id number] Blade Aligner: Renan Huerta MD Nitrite,Ur Negative Normal NEG [facility] Comment on above: Performed By: #### U MICAO, UA #### [address] [place], [place] [id number] Blade Aligner: Renan Huerta MD PH,Ur 6.0 Normal 5.0-9.0 [facility] Comment on above: Performed By: #### U MICAO, UA #### [facility] [address] [place] [address] Dr. [place], [facility]83 Blade Aligner: Renan Huerta MD Protein Ql (U) TRACE Abnormal NEG [facility] Comment on above: Performed By: #### U MICAO, UA #### [facility] [address] [place] [address] [place] [id number] Blade Aligner: Renan Huerta MD Spec. [place],Ur 1.020 Normal 1.010-1.02 0 [facility] Comment on above: Performed By: #### U MICAO, UA #### [facility] [address] [place] [address] [place] [address] Blade Aligner: Renan Huerta MD Urobilinogen,Ur Normal Normal 0.0-1.0 [facility] Comment on above: Performed By: #### U RAMOO, UA #### [facility] [address] [place] [address] Blade Aligner: Renan Huerta MD Urinalysis,Microon Bacteria TRACE Abnormal NONE [facility] Comment on above: Performed By: #### U MICAO, UA #### [facility] [address] [place], [place] [id number] Blade Aligner: Renan Huerta MD Casts 2 TO 5 Normal [facility] Comment on above: Result Comment: HYAL INE Performed By: #### U MYAH, UA #### [facility] [address] [place], [facility]83 Blade Aligner: Renan Huerta MD Epithelial cells LM Ql (Urine sed) 5 TO 10 Normal 0-25 [facility] Comment on above: Performed By: #### U MYAH, UA #### [facility] [address] [place], [facility]83 Blade Aligner: Renan Huerta MD Urine RBC's None Normal 0-2 [facility] Comment on above: Performed By: #### U RAMOO, UA #### [facility] [address] [place], [facility]83 Blade Aligner: Renan Huerta MD Urine WBC's 10 TO 20 Normal 0-5 [facility] Comment on above: Performed By: #### U RAMOO, UA #### [facility] [address] [place] [address] Blade Aligner: Renan Huerta MD Brain Natri. Peptideon 03-21 Natriuretic peptide B (Bld) [Mass/Vol] 4056 pg/mL High 0-450 [facility] Comment on above: Performed By: #### C BC #### [facility] [address] [place] [address] Blade Aligner: Renan Huerta MD Brain Natriuretic Peptideon 03-21-2025 Natriuretic peptide B (Bld) [Mass/Vol] 4056 pg/mL High 0 - 450 pg/mL [facility] CBC with Auto Differentialon 03-21-2025 Basophils (Bld) [#/Vol] 0.04 10*3/uL [facility] Basophils/100 WBC (Bld) 0 % 0 - 2 % B on [facility] Eosinophils (Bld) [#/Vol] [facility] Eosinophils/100 WBC (Bld) 0 % Low 1 - 4 % [facility] Erythrocyte distribution width (RBC) [Ratio] 16.4 % High 11.8 - 14.4 % [facility] Hematocrit (Bld) [Volume fraction] 28.1 % Low 36.3 - 47.1 % [facility] Hemoglobin (Bld) [Mass/Vol] 9 g/dL Low 11.9 - 15.1 g/dL [facility] Immature granulocytes (Bld) [#/Vol] 0.04 10*3/uL [facility] Immature granulocytes/100 WBC (Bld) 0 % 0 [facility] Interpretation and review of laboratory results Abnormal [facility] Lymphocytes/100 WBC (Bld) 10 % Low 24 - 43 % [facility] Lymphocytes/100 WBC (Bld) 0.89 % Low [facility] MCH (RBC) [Entitic mass] 28.1 pg 25.2 - 33.5 pg [facility] MCHC (RBC) [Mass/Vol] 32 g/dL 28.4 - 34.8 g/dL [facility] MCV (RBC) [Entitic vol] 87.8 fL 82.6 - 102.9 fL [facility] Monocytes/100 WBC (Bld) 4 % 3 - 12 % [facility] on [facility] Monocytes/100 WBC (Bld) 0.41 % [facility] on [facility] Neutrophils/100 WBC (Bld) 86 % High 36 - 65 % [facility] Nucleated RBC/100 WBC (Bld) [Ratio] 0 % 0.0 per 100 WBC [facility] Platelet mean volume (Bld) [Entitic vol] 10.1 fL 8.1 - 13.5 fL [facility] Platelets (Bld) [#/Vol] 237 10*3/uL [facility] RBC (Bld) [#/Vol] 3.2 10*6/uL Low 3.95 - 5.11 m/uL [facility] Segmented neutrophils/100 WBC (Bld) 7.97 % [facility] WBC other (Bld) [#/Vol] 9.4 B on [facility] CBC with Diffon 03-21-2025 Abs. Basophil 0.04 k/uL Normal 0.00-0.20 [facility] Comment on above: Performed By: #### C BC #### [facility] [address] [place] [address] Dr. [place] [id number] Blade Aligner: Renan Huerta MD Abs. Eosinophil <0.03 Normal 0.00-0.44 [facility] Comment on above: Performed By: #### C BC #### [address] [place], [place] [id number] Blade Aligner: Renan Huerta MD Abs.Imm.Granulocyte 0.04 k/uL Normal 0.00-0.30 [facility] Comment on above: Performed By: #### C BC #### [facility] [address] [place] [address] Dr. [place], [place] [id number] Blade Aligner: Renan Huerta MD Abs.Neutrophil (Seg) 7.97 k/uL Normal 1.50-8.10 [facility] Comment on above: Performed By: #### C BC #### [address] [place] [address] Blade Aligner: Renan Huerta MD Basophils/100 WBC (Bld) 0 % Normal 0-2 [facility] Comment on above: Performed By: #### C BC #### [facility] [address] [place] [address] Blade Aligner: Renan Huerta MD Eosinophils/100 WBC (Bld) 0 % Low 1-4 [facility] Comment on above: Performed By: #### C BC #### [address] [place], [facility]83 Blade Aligner: Renan Huerta MD Erythrocyte distribution width (RBC) [Ratio] 16.4 % High 11.8-14.4 [facility] Comment on above: Performed By: #### C BC #### [address] [place] [address] Blade Aligner: Renan Huerta MD Hematocrit (Bld) [Volume fraction] 28.1 % Low 36.3-47.1 [facility] Comment on above: Performed By: #### C BC #### [address] [place], [place] [id number] Blade Aligner: Renan Huerta MD Hemoglobin (Bld) [Mass/Vol] 9.0 g/dL Low 11.9-15.1 [facility] Comment on above: Performed By: #### C BC #### [address] [place] [address] Blade Aligner: Renan Huerta MD Immature granulocytes/100 WBC (Bld) 0 % Normal 0 [facility] Comment on above: Performed By: #### C BC #### [facility] [address] [place] [address] [place] [address] Blade Aligner: Renan Huerta MD Lymphocytes (Bld) [#/Vol] 0.89 10*3/uL Low 1.10-3.70 [facility] Comment on above: Performed By: #### C BC #### [address] [place] [address] Blade Aligner: Renan Huerta MD Lymphocytes/100 WBC (Bld) 10 % Low 24-43 [facility] Comment on above: Performed By: #### C BC #### [facility] [address] [place], [place] [id number] Blade Aligner: Renan Huerta MD MCH (RBC) [Entitic mass] 28.1 pg Normal 25.2-33.5 [facility] Comment on above: Performed By: #### C BC #### [facility] [address] [place] [address] Dr. [place], [place] [id number] Blade Aligner: Renan Huerta MD MCHC (RBC) [Mass/Vol] 32.0 g/dL Normal 28.4-34.8 [facility] Comment on above: Performed By: #### C BC #### [address] [place], [place] 6442483 Blade Aligner: Renan Huerta MD MCV (RBC) [Entitic vol] 87.8 fL Normal 82.6-102.9 [facility] Comment on above: Performed By: #### C BC #### [address] [place], [place] 3225383 Blade Aligner: Renan Huerta MD Monocytes (Bld) [#/Vol] 0.41 10*3/uL Normal 0.10-1.20 [facility] Comment on above: Performed By: #### C BC #### [facility] [address] [place] [address] Dr. [place], [place] [id number] Blade Aligner: Renan Huerta MD Monocytes/100 WBC (Bld) 4 % Normal 3-12 [facility] Comment on above: Performed By: #### C BC #### [address] [place], [place] 4393483 Blade Aligner: Renan Huerta MD Neutrophil (Seg) 86 % High 36-65 [facility] Comment on above: Performed By: #### C BC #### [facility] [address] [place], [place] [id number] Blade Aligner: Renan Huerta MD NRBC Automated 0.0 per 100 WBC Normal 0.0 [facility] Comment on above: Performed By: #### C BC #### [facility] [address] [place], [place] [id number] Blade Aligner: Renan Huerta MD Platelet mean volume (Bld) [Entitic vol] 10.1 fL Normal 8.1-13.5 [facility] Comment on above: Performed By: #### C BC #### [facility] [address] [place], [place] 7248583 Blade Aligner: Renan Huerta MD Platelets (Bld) [#/Vol] 237 10*3/uL Normal 138-453 [facility] Comment on above: Performed By: #### C BC #### [facility] [address] [place] [address] Dr. [place], [place] [id number] Blade Aligner: Renan Huerta MD RBC (Bld) [#/Vol] 3.20 10*6/uL Low 3.95-5.11 [facility] Comment on above: Performed By: #### C BC #### [address] [place], [place] 1555083 Blade Aligner: Renan Huerta MD WBC (Bld) [#/Vol] 9.4 10*3/uL Normal 3.5-11.3 [facility] Comment on above: Performed By: #### C BC #### [facility] [address] [place], [place] 3673683 Blade Aligner: Renan Huerta MD CMPon 03-21-2025 Albumin/Globulin [Mass ratio] 1.5 {ratio} 1.0 - 2.5 [facility] ALP [Catalytic activity/Vol] 61 U/L 35 - 104 U/L [facility] Est, Glom Filt Rate 18 Low - PINF Bon [facility] Comment on above: These results are not intended for use [...] following therapy that affects renal tubular secretion. Urea nitrogen/Creatinine [Mass ratio] 13 mg/mg 9 - 20 [facility] [address] CERVICAL SPINE WO CONTRAS Ton 03-21-2025 CT CERVICAL SPINE WO CONTRAST EXAMINATION: CT OF THE CERVICAL SPINE WITHOUT CONTRAST 03/21/2025 12:25 pm TECHNIQUE: CT of the cervical spine was performed without the administration of intravenous contrast. Multiplanar reformatted images are provided for review. Automated exposure control, iterative reconstruction, and/or weight based adjustment of the mA/kV was utilized to reduce the radiation dose to as low as reasonably achievable. COMPARISON: None. HISTORY: ORDERING SYSTEM PROVIDED HISTORY: injury TECHNOLOGIST PROVIDED HISTORY: injury Decision Support Exception - unselect if not a suspected or confirmed emergency medical condition->Emergency Medical Condition (MA) FINDINGS: BONES/ALIGNMENT: There is no acute fracture or traumatic malalignment. DEGENERATIVE CHANGES: Multilevel degenerative changes are present with likely at least moderate spinal canal stenosis at C4-C5 and C5-C6 secondary to posterior disc osteophyte complexes. There is multilevel facet and uncovertebral arthropathy with varying degrees of neural foraminal narrowing. SOFT TISSUES: There is no prevertebral soft tissue swelling. IMPRESSION: 1. No acute fracture or subluxation of the cervical spine. 2. Multilevel degenerative changes with likely at least moderate spinal canal stenosis at C4-C5 and C5-C6. Interpreted by: Tami Zabala MD Signed by: Tami Zabala MD 03/21/25 Final result Normal [facility] CT Cervical spine WO contras ton 03-21-2025 1. No acute fracture or subluxation of the cervical spine. 2. Multilevel degenerative changes with likely at least moderate spinal canal stenosis at C4-C5 and C5-C6. [facility] RIS CONSOLIDATED EXAMINATION: CT OF THE CERVICAL SPINE WITHOUT CONTRAST 03/21/2025 12:25 pm TECHNIQUE: CT of the cervical spine was performed without the administration of intravenous contrast. Multiplanar reformatted images are provided for review. Automated exposure control, iterative reconstruction, and/or weight based adjustment of the mA/kV was utilized to reduce the radiation dose to as low as reasonably achievable. COMPARISON: None. HISTORY: ORDERING SYSTEM PROVIDED HISTORY: injury TECHNOLOGIST PROVIDED HISTORY: injury Decision Support Exception - unselect if not a suspected or confirmed emergency medical condition->Emergency Medical Condition (MA) FINDINGS: BONES/ALIGNMENT: There is no acute fracture or traumatic malalignment. DEGENERATIVE CHANGES: Multilevel degenerative changes are present with likely at least moderate spinal canal stenosis at C4-C5 and C5-C6 secondary to posterior disc osteophyte complexes. There is multilevel facet and uncovertebral arthropathy with varying degrees of neural foraminal narrowing. SOFT TISSUES: There is no prevertebral soft tissue swelling. [facility] Tami Ledesma MD - 03/21/2025 EXAMINATION: CT OF THE CERVICAL SPINE WITHOUT CONTRAST 03/21/2025 12:25 pm TECHNIQUE: CT of the cervical spine was performed without the administration of intravenous contrast. Multiplanar reformatted images are provided for review. Automated exposure control, iterative reconstruction, and/or weight based adjustment of the mA/kV was utilized to reduce the radiation dose to as low as reasonably achievable. COMPARISON: None. HISTORY: ORDERING SYSTEM PROVIDED HISTORY: injury TECHNOLOGIST PROVIDED HISTORY: injury Decision Support Exception - unselect if not a suspected or confirmed emergency medical condition->Emergency Medical Condition (MA) FINDINGS: BONES/ALIGNMENT: There is no acute fracture or traumatic malalignment. DEGENERATIVE CHANGES: Multilevel degenerative changes are present with likely at least moderate spinal canal stenosis at C4-C5 and C5-C6 secondary to posterior disc osteophyte complexes. There is multilevel facet and uncovertebral arthropathy with varying degrees of neural foraminal narrowing. SOFT TISSUES: There is no prevertebral soft tissue swelling. IMPRESSION: 1. No acute fracture or subluxation of the cervical spine. 2. Multilevel degenerative changes with likely at least moderate spinal canal stenosis at C4-C5 and C5-C6. [facility] Radiology Study observation (narrative) [facility] CT Cervical spine WO contras tOrdered By: Tami Zabala on 03-21-2025 [facility] Work Phone: CT Facial bones WO contrasto n 03-21-2025 Radiology Study observation (narrative) Flory fleming [facility] CT Head WO contraston 2024 Radiology Study observation (narrative) Flory fleming [facility] Comp Metabolic Profon 2024 Albumin [Mass/Vol] 3.8 g/dL Normal 3.5-5.2 [facility] Comment on above: Performed By: #### P TT #### [address] [place], [place] [id number] Blade Aligner: Renan Huerta MD ALT [Catalytic activity/Vol] 15 U/L Normal 10-35 [facility] Comment on above: Performed By: #### P TT #### [address] [place] [address] Blade Aligner: Renan Huerta MD Anion gap [Moles/Vol] 13 mmol/L Normal 9-16 [facility] Comment on above: Performed By: #### P TT #### [address] [place] [address] Blade Aligner: Renan Huerta MD AST [Catalytic activity/Vol] 29 U/L Normal 10-35 [facility] Comment on above: Performed By: #### P TT #### [address] [place] [address] Blade Aligner: Renan Huerta MD Bilirubin [Mass/Vol] 0.5 mg/dL Normal 0.00-1.20 [facility] Comment on above: Performed By: #### P TT #### [address] [place] [address] Blade Aligner: Renan Huerta MD Calcium [Mass/Vol] 8.5 mg/dL Low 8.6-10.4 [facility] Comment on above: Performed By: #### P TT #### [address] [place], [place] 423[address]83 Blade Aligner: Renan Huerta MD Chloride [Moles/Vol] 102 mmol/L Normal 98-107 [facility] Comment on above: Performed By: #### P TT #### [address] [place] [address] Blade Aligner: Renan Huerta MD CO2 [Moles/Vol] 19 mmol/L Low 20-31 [facility] Comment on above: Performed By: #### P TT #### [address] [place], [place] [phone] Blade Aligner: Renan Huerta MD Creatinine [Mass/Vol] 2.5 mg/dL High 0.50-0.90 [facility] Comment on above: Performed By: #### P TT #### [address] [place] [address] Blade Aligner: Renan Huerta MD Glucose [Mass/Vol] 107 mg/dL High 74-99 [facility] Comment on above: Performed By: #### P TT #### [address] [place] [address] Blade Aligner: Renan Huerta MD Potassium [Moles/Vol] 4.7 mmol/L Normal 3.7-5.3 [facility] Comment on above: Performed By: #### P TT #### [facility] [address] [place] [address] [place] [place], [place] 9531883 Blade Aligner: Renan Huerta MD Protein [Mass/Vol] 6.4 g/dL Low 6.6-8.7 [facility] Comment on above: Performed By: #### P TT #### [address] [place] [address] Blade Aligner: Renan Huerta MD Sodium [Moles/Vol] 134 mmol/L Low 136-145 [facility] Comment on above: Performed By: #### P TT #### [facility] [address] [place], [place] 7743783 Blade Aligner: Renan Huerta MD Urea nitrogen [Mass/Vol] 33 mg/dL High 8-23 [facility] Comment on above: Performed By: #### P TT #### [facility] [address] [place], [place] 3544583 Blade Aligner: Renan Huerta MD Albumin/Glob Ratio 1.5 Normal 1.0-2.5 [facility] Comment on above: Performed By: #### P TT #### [facility] [address] [place], [place] 1507383 Blade Aligner: Renan Huerta MD Alkaline Phos 61 U/L Normal 35-104 [facility] Comment on above: Performed By: #### P TT #### [facility] [address] [place] [address] Blade Aligner: Renan Huerta MD BUN/CRE Ratio 13 Normal 9-20 [facility] Comment on above: Performed By: #### P TT #### [facility] [address] [place] [address] Blade Aligner: Renan Huerta MD GFR/1.73 sq M.predicted among non-blacks MDRD (S/P/Bld) [Vol rate/Area] 18 mL/min/{1.73_m2} Low >60 [facility] Comment on above: Result Comment: These results are not intended for [...] following therapy that affects renal tubular secretion. Performed By: #### P TT #### [facility] [address] [place] [address] Blade Aligner: Renan Huerta MD EKG 12 Leadon 03-21-2025 Atrial Rate 78 BPM [facility] P [place] 78 degrees [facility] P-R Interval 150 ms [facility] Q-T Interval 414 ms [facility] QRS Duration 72 ms [facility] QTc Calculation (Bazett) 471 ms [facility] R [place] 68 degrees [facility] T [place] 56 degrees [facility] Ventricular Rate 78 [facility] Normal sinus rhythm Possible Left atrial enlargement Borderline ECG ECG not diagnostic for Acute Coronary Syndrome; consider clinical findings When compared with ECG of 20-Mar-2025 10:36, No significant change was found Confirmed by Toni Moore ([id number]) on 03/21/2025 5:12:54 PM [facility] RADIOLOGY Toni Moore MD - 03/21/2025 Normal sinus rhythm Possible Left atrial enlargement Borderline ECG ECG not diagnostic for Acute Coronary Syndrome; consider clinical findings When compared with ECG of 20-Mar-2025 10:36, No significant change was found Confirmed by Toni Moore ([id number]) on 03/21/2025 5:12:54 PM [facility] No Panel Informationon 03-21 Interpretation and review of laboratory results Abnormal [facility] Interpretation and review of laboratory results Abnormal [facility] PTon 03-21-2025 INR Coag (PPP) [Relative time] 1.3 {INR} Normal [facility] Comment on above: Result Comment: Therapeutic Range: Moderate Anticoagulant Intensity: INR = 2.0-3.0 High Anticoagulant Intensity: INR = 2.5-3.5 Performed By: #### P TT #### [facility] [address] [place] [address] Blade Aligner: Renan Huerta MD PT Coag (PPP) [Time] 17.0 s High 12.0-15.0 [facility] Comment on above: Performed By: #### P TT #### [facility] [address] [place] [address] Blade Aligner: Renan Huerta MD Portable XR Chest AP single viewon 03-21-2025 1. No acute findings . 2. Stable enlargement of the heart. 3. Hyperinflated lungs. 4. Blunting of the left and right costophrenic angles due to pleural fluid or pleural thickening. [facility] EXAM: 1 VIEW XRAY OF THE CHEST 03/21/2025 02:12:21 PM COMPARISON: 03/20/2025 CLINICAL HISTORY: Shortness of Breath. FINDINGS: LUNGS AND PLEURA: Hyperinflated lungs. Blunting of the left and right costophrenic angles due to pleural fluid or pleural thickening. No confluent infiltrate or pneumothorax. HEART AND MEDIASTINUM: Stable enlargement of the heart. Mediastinal silhouettes within normal limits. Cardiac pacer in place. BONES AND SOFT TISSUES: IVC filter in place. Aortic stent graft within the aortic arch and descending thoracic aorta. No acute osseous abnormality. [facility] Antwan Arriola MD - 03/21/2025 EXAM: 1 VIEW XRAY OF THE CHEST 03/21/2025 02:12:21 PM COMPARISON: 03/20/2025 CLINICAL HISTORY: Shortness of Breath. FINDINGS: LUNGS AND PLEURA: Hyperinflated lungs. Blunting of the left and right costophrenic angles due to pleural fluid or pleural thickening. No confluent infiltrate or pneumothorax. HEART AND MEDIASTINUM: Stable enlargement of the heart. Mediastinal silhouettes within normal limits. Cardiac pacer in place. BONES AND SOFT TISSUES: IVC filter in place. Aortic stent graft within the aortic arch and descending thoracic aorta. No acute osseous abnormality. IMPRESSION: 1. No acute findings. 2. Stable enlargement of the heart. 3. Hyperinflated lungs. 4. Blunting of the left and right costophrenic angles due to pleural fluid or pleural thickening. [facility] Rad[facility] Study observation (narrative) [facility] Portable XR Chest AP single viewOrdered By: Antwan Arriola on 03-21-2025 [facility] Work Phone: Protime-INRon 03-21-2025 INR Coag (PPP) [Relative time] 1.3 {INR} [facility] Comment on above: Therapeutic Range: Moderate Anticoagulant Intensity: INR = 2.0-3.0 High Anticoagulant Intensity: INR = 2.5-3.5 Interpretation and review of laboratory results Abnormal [facility] PT Coag (PPP) [Time] 17.0 s High [facility] Troponinon 03-21-2025 Troponin I.cardiac High sensitivity method [Mass/Vol] 66 ng/L Critically high 0 - 14 ng/L [facility] Comment on above: High Sensitivity Tro ponin values cannot be compared with other Troponin methodologies. Troponin, High Sens 66 ng/L Critically high 0-14 [facility] Comment on above: Result Comment: High Sensitivity Troponin values cannot be compared with other Troponin methodologies. Performed By: #### C BC #### [facility] [address] [place] [address] [address] [place], [place] [id number] Blade Aligner: Renan Huerta MD Troponin I.cardiac High sensitivity method [Mass/Vol] 76 ng/L Critically high 0 - 14 ng/L [facility] Comment on above: High Sensitivity Tro ponin values cannot be compared with other Troponin methodologies. Troponin, High Sens 76 ng/L Critically high 0-14 [facility] Comment on above: Result Comment: High Sensitivity Troponin values cannot be compared with other Troponin methodologies. Performed By: #### P TT #### [facility] [address] [place] [address] Blade Aligner: Renan Huerta MD XR CHEST PORTABLEon 03-21-20 25 XR CHEST PORTABLE EXAM: 1 VIEW XRAY OF THE CHEST 03/21/2025 02:12:21 PM COMPARISON: 03/20/2025 CLINICAL HISTORY: Shortness of Breath. FINDINGS: LUNGS AND PLEURA: Hyperinflated lungs. Blunting of the left and right costophrenic angles due to pleural fluid or pleural thickening. No confluent infiltrate or pneumothorax. HEART AND MEDIASTINUM: Stable enlargement of the heart. Mediastinal silhouettes within normal limits. Cardiac pacer in place. BONES AND SOFT TISSUES: IVC filter in place. Aortic stent graft within the aortic arch and descending thoracic aorta. No acute osseous abnormality. IMPRESSION: 1. No acute findings. 2. Stable enlargement of the heart. 3. Hyperinflated lungs. 4. Blunting of the left and right costophrenic angles due to pleural fluid or pleural thickening. Interpreted by: Antwan Arriola MD Signed by: Antwan Arriola MD 03/21/25 Final result Normal [facility] Brain Natri. Peptideon 03-20 Natriuretic peptide B (Bld) [Mass/Vol] 4103 pg/mL High 0-450 [facility] Comment on above: Performed By: #### U RAMOO, UA #### [facility] [address] [place] [address] Blade Aligner: Renan Huerta MD Brain Natriuretic Peptideon 03-20-2025 Interpretation and review of laboratory results Abnormal [facility] Natriuretic peptide B (Bld) [Mass/Vol] 4103 pg/mL High 0 - 450 pg/mL [facility] CBC with Auto Differentialon 03-20-2025 Basophils (Bld) [#/Vol] 0.05 10*3/uL [facility] Basophils/100 WBC (Bld) 1 % 0 - 2 % B [facility] Eosinophils (Bld) [#/Vol] 0.03 10*3/uL [facility] Eosinophils/100 WBC (Bld) 0 % Low 1 - 4 % [facility] Erythrocyte distribution width (RBC) [Ratio] 15.9 % High 11.8 - 14.4 % [facility] Hematocrit (Bld) [Volume fraction] 29.5 % Low 36.3 - 47.1 % [facility] Hemoglobin (Bld) [Mass/Vol] 9.5 g/dL Low 11.9 - 15.1 g/dL [facility] Immature granulocytes (Bld) [#/Vol] 0.03 10*3/uL [facility] Immature granulocytes/100 WBC (Bld) 0 % 0 [facility] Interpretation and review of laboratory results Abnormal [facility] Lymphocytes/100 WBC (Bld) 9 % Low 24 - 43 % [facility] Lymphocytes/100 WBC (Bld) 0.68 % Low [facility] MCH (RBC) [Entitic mass] 27.9 pg 25.2 - 33.5 pg [facility] MCHC (RBC) [Mass/Vol] 32.2 g/dL 28.4 - 34.8 g/dL [facility] MCV (RBC) [Entitic vol] 86.8 fL 82.6 - 102.9 fL [facility] Monocytes/100 WBC (Bld) 6 % 3 - 12 % B on [facility] Monocytes/100 WBC (Bld) 0.42 % B on [facility] Neutrophils/100 WBC (Bld) 84 % High 36 - 65 % [facility] Nucleated RBC/100 WBC (Bld) [Ratio] 0 % 0.0 per 100 WBC [facility] Platelet mean volume (Bld) [Entitic vol] 10.3 fL 8.1 - 13.5 fL [facility] Platelets (Bld) [#/Vol] 225 10*3/uL [facility] RBC (Bld) [#/Vol] 3.4 10*6/uL Low 3.95 - 5.11 m/uL [facility] Segmented neutrophils/100 WBC (Bld) 6.04 % [facility] WBC other (Bld) [#/Vol] 7.3 B on [facility] CBC with Diffon 03-20-2025 Abs. Basophil 0.05 k/uL Normal 0.00-0.20 [facility] Comment on above: Performed By: #### B SIMULATION DEVELOPER, PT, CDP, CP, TROPI #### [facility] [address] [place] [address] Blade Aligner: Renan Huerta MD Abs.Imm.Granulocyte 0.03 k/uL Normal 0.00-0.30 [facility] Comment on above: Performed By: #### B SIMULATION DEVELOPER, PT, CDP, CP, TROPI #### [facility] [address] [place] [address] Blade Aligner: Renan Huerta MD Abs.Neutrophil (Seg) 6.04 k/uL Normal 1.50-8.10 [facility] Comment on above: Performed By: #### B SIMULATION DEVELOPER, PT, CDP, CP, TROPI #### [address] [place], [place] [id number] Blade Aligner: Renan Huerta MD Basophils/100 WBC (Bld) 1 % Normal 0-2 [facility] Comment on above: Performed By: #### B SIMULATION DEVELOPER, PT, CDP, CP, TROPI #### [address] [place] [id number] Blade Aligner: Renan Huerta MD Eosinophils (Bld) [#/Vol] 0.03 10*3/uL Normal 0.00-0.44 [facility] Comment on above: Performed By: #### B SIMULATION DEVELOPER, PT, CDP, CP, TROPI #### [address] [place], [place] [address] Blade Aligner: Renan Huerta MD Eosinophils/100 WBC (Bld) 0 % Low 1-4 [facility] Comment on above: Performed By: #### B SIMULATION DEVELOPER, PT, CDP, CP, TROPI #### [address] [place], [facility]83 Blade Aligner: Renan Huerta MD Erythrocyte distribution width (RBC) [Ratio] 15.9 % High 11.8-14.4 [facility] Comment on above: Performed By: #### B SIMULATION DEVELOPER, PT, CDP, CP, TROPI #### [address] [place], [facility]83 Blade Aligner: Renan Huerta MD Hematocrit (Bld) [Volume fraction] 29.5 % Low 36.3-47.1 [facility] Comment on above: Performed By: #### B SIMULATION DEVELOPER, PT, CDP, CP, TROPI #### [address] [place], [facility]83 Blade Aligner: Renan Huerta MD Hemoglobin (Bld) [Mass/Vol] 9.5 g/dL Low 11.9-15.1 [facility] Comment on above: Performed By: #### B SIMULATION DEVELOPER, PT, CDP, CP, TROPI #### [address] [place], [facility]83 Blade Aligner: Renan Huerta MD Immature granulocytes/100 WBC (Bld) 0 % Normal 0 [facility] Comment on above: Performed By: #### B SIMULATION DEVELOPER, PT, CDP, CP, TROPI #### [address] [place], [facility]83 Blade Aligner: Renan Huerta MD Lymphocytes (Bld) [#/Vol] 0.68 10*3/uL Low 1.10-3.70 [facility] Comment on above: Performed By: #### B SIMULATION DEVELOPER, PT, CDP, CP, TROPI #### [address] [place], [facility]83 Blade Aligner: Renan Huerta MD Lymphocytes/100 WBC (Bld) 9 % Low 24-43 [facility] Comment on above: Performed By: #### B SIMULATION DEVELOPER, PT, CDP, CP, TROPI #### [address] [place], [facility]83 Blade Aligner: Renan Huerta MD MCH (RBC) [Entitic mass] 27.9 pg Normal 25.2-33.5 [facility] Comment on above: Performed By: #### B SIMULATION DEVELOPER, PT, CDP, CP, TROPI #### [address] [place], [facility]83 Blade Aligner: Renan Huerta MD MCHC (RBC) [Mass/Vol] 32.2 g/dL Normal 28.4-34.8 [facility] Comment on above: Performed By: #### B SIMULATION DEVELOPER, PT, CDP, CP, TROPI #### [facility] [address] [place], [facility]83 Blade Aligner: Renan Huerta MD MCV (RBC) [Entitic vol] 86.8 fL Normal 82.6-102.9 [facility] Comment on above: Performed By: #### B SIMULATION DEVELOPER, PT, CDP, CP, TROPI #### [facility] [address] [place], [place] [address] Blade Aligner: Renan Huerta MD Monocytes (Bld) [#/Vol] 0.42 10*3/uL Normal 0.10-1.20 [facility] Comment on above: Performed By: #### B SIMULATION DEVELOPER, PT, CDP, CP, TROPI #### [address] [place], [facility]79 ( Blade Aligner: Renan Huerta MD Monocytes/100 WBC (Bld) 6 % Normal 3-12 [facility] Comment on above: Performed By: #### B SIMULATION DEVELOPER, PT, CDP, CP, TROPI #### [address] [place], [facility]83 Blade Aligner: Renan Huerta MD Neutrophil (Seg) 84 % High 36-65 [facility] Comment on above: Performed By: #### B SIMULATION DEVELOPER, PT, CDP, CP, TROPI #### [address] [place], [facility]10 ( Blade Aligner: Renan Huerta MD NRBC Automated 0.0 per 100 WBC Normal 0.0 [facility] Comment on above: Performed By: #### B SIMULATION DEVELOPER, PT, CDP, CP, TROPI #### [address] [place], [facility]83 Blade Aligner: Renan Huerta MD Platelet mean volume (Bld) [Entitic vol] 10.3 fL Normal 8.1-13.5 [facility] Comment on above: Performed By: #### B SIMULATION DEVELOPER, PT, CDP, CP, TROPI #### [facility] [address] [place] [address] Blade Aligner: Renan Huerta MD Platelets (Bld) [#/Vol] 225 10*3/uL Normal 138-453 [facility] Comment on above: Performed By: #### B SIMULATION DEVELOPER, PT, CDP, CP, TROPI #### [facility] [address] [place] [address] Blade Aligner: Renan Huerta MD RBC (Bld) [#/Vol] 3.40 10*6/uL Low 3.95-5.11 [facility] Comment on above: Performed By: #### B SIMULATION DEVELOPER, PT, CDP, CP, TROPI #### [facility] [address] [place], [place] [id number] Blade Aligner: Renan Huerta MD WBC (Bld) [#/Vol] 7.3 10*3/uL Normal 3.5-11.3 [facility] Comment on above: Performed By: #### B SIMULATION DEVELOPER, PT, CDP, CP, TROPI #### [facility] [address] [place] [address] Blade Aligner: Renan Huerta MD [facility] 03-20-2025 Albumin [Mass/Vol] 3.5 g/dL 3.5 - 5.2 g/dL [facility] Albumin/Globulin [Mass ratio] 1.4 {ratio} 1.0 - 2.5 [facility] ALP [Catalytic activity/Vol] 59 U/L 35 - 104 U/L [facility] ALT [Catalytic activity/Vol] 12 U/L 10 - 35 U/L [facility] Anion gap [Moles/Vol] 11 mmol/L 9 - 16 mmol/L [facility] AST [Catalytic activity/Vol] 27 U/L 10 - 35 U/L [facility] Bilirubin [Mass/Vol] 0.6 mg/dL 0.00 - 1.20 mg/dL [facility] Calcium [Mass/Vol] 8.4 mg/dL Low 8.6 - 10. 4 mg/dL [facility] Chloride [Moles/Vol] 106 mmol/L 98 - 10 7 mmol/L [facility] CO2 [Moles/Vol] 18 mmol/L Low 20 - 31 mmol/L [facility] Creatinine [Mass/Vol] 1.4 mg/dL High 0.50 - 0.90 mg/dL [facility] EstRobbie Filt Rate 37 Low - PINF [facility] Comment on above: These results are not intended for use [...] following therapy that affects renal tubular secretion. Glucose [Mass/Vol] 121 mg/dL High 74 - 99 mg/dL [facility] Potassium [Moles/Vol] 4.4 mmol/L 3.7 - 5.3 mmol/L [facility] Protein [Mass/Vol] 5.9 g/dL Low 6.6 - 8.7 g/dL [facility] Sodium [Moles/Vol] 135 mmol/L Low 136 - 145 mmol/L [facility] Urea nitrogen [Mass/Vol] 22 mg/dL 8 - 23 mg/dL [facility] Urea nitrogen/Creatinine [Mass ratio] 16 mg/mg 9 - 20 [facility] COVID-19, Rapidon 03-20-2025 SARS-CoV-2 (COVID-19) RdRp gene JOSE MARIA+probe Ql (Resp) Not detected Not Detected [facility] Comment on above: Rapid NAAT: The specimen is NEGATIVE for SARS-CoV-2, the novel coronavirus associated with COVID-19. The ID NOW COVID-19 assay is designed to detect the virus that causes COVID-19 in patients with signs and symptoms of infection who are suspected of COVID-19. An individual without symptoms of COVID-19 and who is not shedding SARS-CoV-2 virus would expect to have a negative (not detected) result in this assay. Negative results should be treated as presumptive and, if inconsistent with clinical signs and symptoms or necessary for patient management, should be tested with an alternative molecular assay. Negative results do not preclude SARS-CoV-2 infection and should not be used as the sole basis for patient management decisions. Methodology: Isothermal Nucleic Acid Amplification Specimen Description .NASOPHARYNGEAL SWAB [facility] Comp Metabolic Profon 2024 Albumin [Mass/Vol] 3.5 g/dL Normal 3.5-5.2 [facility] Comment on above: Performed By: #### B SIMULATION DEVELOPER, PT, CDP, CP, TROPI #### [facility] [address] [place] [address] Blade Aligner: Renan Huerta MD Albumin/Glob Ratio 1.4 Normal 1.0-2.5 [facility] Comment on above: Performed By: #### B SIMULATION DEVELOPER, PT, CDP, CP, TROPI #### [facility] [address] [place] [address] Blade Aligner: Renan Huerta MD Alkaline Phos 59 U/L Normal 35-104 [facility] Comment on above: Performed By: #### B SIMULATION DEVELOPER, PT, CDP, CP, TROPI #### [address] [place], [place] [id number] Blade Aligner: Renan Huerta MD ALT [Catalytic activity/Vol] 12 U/L Normal 10-35 [facility] Comment on above: Performed By: #### B SIMULATION DEVELOPER, PT, CDP, CP, TROPI #### [facility] [address] [place] [address] Blade Aligner: Renan Huerta MD Anion gap [Moles/Vol] 11 mmol/L Normal 9-16 [facility] Comment on above: Performed By: #### B SIMULATION DEVELOPER, PT, CDP, CP, TROPI #### [facility] [address] [place], [place] [id number] Blade Aligner: Renan Huerta MD AST [Catalytic activity/Vol] 27 U/L Normal 10-35 [facility] Comment on above: Performed By: #### B SIMULATION DEVELOPER, PT, CDP, CP, TROPI #### [facility] [address] [place], [place] [id number] Blade Aligner: Renan Huerta MD Bilirubin [Mass/Vol] 0.6 mg/dL Normal 0.00-1.20 [facility] Comment on above: Performed By: #### B SIMULATION DEVELOPER, PT, CDP, CP, TROPI #### [facility] [address] [place], [place] [id number] Blade Aligner: Renan Huerta MD BUN/CRE Ratio 16 Normal 9-20 [facility] Comment on above: Performed By: #### B SIMULATION DEVELOPER, PT, CDP, CP, TROPI #### [facility] [address] [place] [address] [place]. [place], [place] [id number] Blade Aligner: Renan Huerta MD Calcium [Mass/Vol] 8.4 mg/dL Low 8.6-10.4 [facility] Comment on above: Performed By: #### B SIMULATION DEVELOPER, PT, CDP, CP, TROPI #### [address] [place], [place] [id number] Blade Aligner: Renan Huerta MD Chloride [Moles/Vol] 106 mmol/L Normal 98-107 [facility] Comment on above: Performed By: #### B SIMULATION DEVELOPER, PT, CDP, CP, TROPI #### [facility] [address] [place] [address] [place] [place], [place] [id number] Blade Aligner: Renan Huerta MD CO2 [Moles/Vol] 18 mmol/L Low 20-31 [facility] Comment on above: Performed By: #### B SIMULATION DEVELOPER, PT, CDP, CP, TROPI #### [facility] [address] [place] [address] Blade Aligner: Renan Huerta MD Creatinine [Mass/Vol] 1.4 mg/dL High 0.50-0.90 [facility] Comment on above: Performed By: #### B SIMULATION DEVELOPER, PT, CDP, CP, TROPI #### [facility] [address] [place] [address] Blade Aligner: Renan Huerta MD GFR/1.73 sq M.predicted among non-blacks MDRD (S/P/Bld) [Vol rate/Area] 37 mL/min/{1.73_m2} Low >60 [facility] Comment on above: Result Comment: These results are not intended for [...] following therapy that affects renal tubular secretion. Performed By: #### B SIMULATION DEVELOPER, PT, CDP, CP, TROPI #### [address] [place] [address] Blade Aligner: Renan Huerta MD Glucose [Mass/Vol] 121 mg/dL High 74-99 [facility] Comment on above: Performed By: #### B SIMULATION DEVELOPER, PT, CDP, CP, TROPI #### [address] [place] [address] Blade Aligner: Renan Huerta MD Potassium [Moles/Vol] 4.4 mmol/L Normal 3.7-5.3 [facility] Comment on above: Performed By: #### B SIMULATION DEVELOPER, PT, CDP, CP, TROPI #### [address] [place] [address] Blade Aligner: Renan Huerta MD Protein [Mass/Vol] 5.9 g/dL Low 6.6-8.7 [facility] Comment on above: Performed By: #### B SIMULATION DEVELOPER, PT, CDP, CP, TROPI #### [facility] [address] [place] [address] [place] [place], [place] [id number] Blade Aligner: Renan Huerta MD Sodium [Moles/Vol] 135 mmol/L Low 136-145 [facility] Comment on above: Performed By: #### B SIMULATION DEVELOPER, PT, CDP, CP, TROPI #### [facility] [address] [place], [place] [id number] Blade Aligner: Renan Huerta MD Urea nitrogen [Mass/Vol] 22 mg/dL Normal 8-23 [facility] Comment on above: Performed By: #### B SIMULATION DEVELOPER, PT, CDP, CP, TROPI #### [address] [place] [address] Blade Aligner: Renan Huerta MD No Panel Informationon 03-20 Interpretation and review of laboratory results Abnormal [facility] PTon 03-20-2025 INR Coag (PPP) [Relative time] 1.2 {INR} Normal [facility] Comment on above: Result Comment: Therapeutic Range: Moderate Anticoagulant Intensity: INR = 2.0-3.0 High Anticoagulant Intensity: INR = 2.5-3.5 Performed By: #### Irving GLASGOW UA #### [address] [place] [address] Blade Aligner: Renan Huerta MD PT Coag (PPP) [Time] 15.9 s High 12.0-15.0 [facility] Comment on above: Performed By: #### Irving GLASGOW UA #### [facility] [address] [place] [address] [place] [address] Blade Aligner: Renan Huerta MD Portable XR Chest AP single viewon 03-20-2025 1. No acute process. 2. Hyperinflated lungs. [facility] EXAM: 1 VIEW(S) XRAY OF THE CHEST 03/20/2025 11:10:47 AM COMPARISON: None available. CLINICAL HISTORY: Shortness of breath. FINDINGS: LUNGS AND PLEURA: Hyperinflated lungs. No focal pulmonary opacity. No pulmonary edema. No pleural effusion. No pneumothorax. HEART AND MEDIASTINUM: Left pacemaker in place. Aortic stent noted. No acute abnormality of the cardiac and mediastinal silhouettes. BONES AND SOFT TISSUES: No acute osseous abnormality. [facility] Asif Rodríguez MD - 03/20/2025 EXAM: 1 VIEW(S) XRAY OF THE CHEST 03/20/2025 11:10:47 AM COMPARISON: None available. CLINICAL HISTORY: Shortness of breath. FINDINGS: LUNGS AND PLEURA: Hyperinflated lungs. No focal pulmonary opacity. No pulmonary edema. No pleural effusion. No pneumothorax. HEART AND MEDIASTINUM: Left pacemaker in place. Aortic stent noted. No acute abnormality of the cardiac and mediastinal silhouettes. BONES AND SOFT TISSUES: No acute osseous abnormality. IMPRESSION: 1. No acute process. 2. Hyperinflated lungs. [facility] Rad[facility] Study observation (narrative) [facility] Portable XR Chest AP single viewOrdered By: Asif Dimas on 03-20-2025 [facility] Work Phone: Protime-INRon 03-20-2025 INR Coag (PPP) [Relative time] 1.2 {INR} [facility] Comment on above: Therapeutic Range: Moderate Anticoagulant Intensity: INR = 2.0-3.0 High Anticoagulant Intensity: INR = 2.5-3.5 Interpretation and review of laboratory results Abnormal [facility] PT Coag (PPP) [Time] 15.9 s High [facility] [id number] 03-20-2025 SARS-CoV-2 (COVID-19) RNA JOSE MARIA+probe Ql (Unsp spec) Not detected Normal [facility] Comment on above: Result Comment: Rapid NAAT: The specimen is NEGATIVE for SARS-CoV-2, the novel coronavirus associated with COVID-19. The ID NOW COVID-19 assay is designed to detect the virus that causes COVID-19 in patients with signs and symptoms of infection who are suspected of COVID-19. An individual without symptoms of COVID-19 and who is not shedding SARS-CoV-2 virus would expect to have a negative (not detected) result in this assay. Negative results should be treated as presumptive and, if inconsistent with clinical signs and symptoms or necessary for patient management, should be tested with an alternative molecular assay. Negative results do not preclude SARS-CoV-2 infection and should not be used as the sole basis for patient management decisions. Methodology: Isothermal Nucleic Acid Amplification Performed By: #### C OVRB #### [facility] [address] [place], [place] [id number] Blade Aligner: Renan Huerta MD Troponinon 03-20-2025 Interpretation and review of laboratory results Abnormal [facility] Troponin I.cardiac High sensitivity method [Mass/Vol] 32 ng/L High 0 - 14 ng/L [facility] Comment on above: High Sensitivity Tro ponin values cannot be compared with other Troponin methodologies. [facility] Troponin, High Sens 32 ng/L High 0-14 [facility] Comment on above: Result Comment: High Sensitivity Troponin values cannot be compared with other Troponin methodologies. Performed By: #### P TT #### [address] [place], [place] [id number] Blade Aligner: Renan Huerta MD Troponin I.cardiac High sensitivity method [Mass/Vol] 44 ng/L High 0 - 14 ng/L [facility] Comment on above: High Sensitivity Tro ponin values cannot be compared with other Troponin methodologies. Troponin, High Sens 44 ng/L High 0-14 [facility] Comment on above: Result Comment: High Sensitivity Troponin values cannot be compared with other Troponin methodologies. Performed By: #### U MICAO, UA #### [facility] [address] [place] [address] Blade Aligner: Renan Huerta MD XR CHEST PORTABLEon 03-20-20 25 XR CHEST PORTABLE EXAM: 1 VIEW(S) XRAY OF THE CHEST 03/20/2025 11:10:47 AM COMPARISON: None available. CLINICAL HISTORY: Shortness of breath. FINDINGS: LUNGS AND PLEURA: Hyperinflated lungs. No focal pulmonary opacity. No pulmonary edema. No pleural effusion. No pneumothorax. HEART AND MEDIASTINUM: Left pacemaker in place. Aortic stent noted. No acute abnormality of the cardiac and mediastinal silhouettes. BONES AND SOFT TISSUES: No acute osseous abnormality. IMPRESSION: 1. No acute process. 2. Hyperinflated lungs. Interpreted by: Asif Dimas MD Signed by: Asif Dimas MD 03/20/25 Final result Normal [facility] XR TIBIA FIBULA LEFT (2 VIEW S)on 03-20-2025 XR TIBIA FIBULA LEFT (2 VIEWS) ADDENDUM: There is a single AP view taking with no gauze bandages. The lateral views have gauze bandages obscuring the posterior aspect of the leg and fibula. Within the limitations of the exam, no obvious acute bony abnormality is seen. Electronically Signed by: MILTON JONES on ThuMar 20, 2025 5:34:33 PM EDT EXAMINATION: 4 XRAY VIEWS OF THE LEFT TIBIA AND FIBULA 03/20/2025 3:34 pm COMPARISON: 06/14/2018 HISTORY: ORDERING SYSTEM PROVIDED HISTORY: Trauma TECHNOLOGIST PROVIDED HISTORY: Trauma FINDINGS: There is extensive overlying bandages obscuring detail throughout the lower leg. No obvious acute fracture or dislocation can be seen. The bones are osteopenic. There are vascular calcifications throughout the lower leg. The joint spaces are intact. IMPRESSION: Overlying bandages obscuring detail and limiting the exam. Within the limitations of the exam, no obvious acute bony abnormality can be seen. Recommend follow-up clinically and additional imaging, if indicated. Diffuse osteopenia with no obvious acute bony abnormality seen. Interpreted by: Milton Jones MD Signed by: Milton Jones MD 03/20/25 Edited Result - FINAL Normal [facility] XR Tibia and Fibula - left 2 Viewson 03-20-2025 Overlying bandages obscuring detail and limiting the exam. Within the limitations of the exam, no obvious acute bony abnormality can be seen. Recommend follow-up clinically and additional imaging, if indicated. Diffuse osteopenia with no obvious acute bony abnormality seen. [facility] RIS CONSOLIDATED EXAMINATION: 4 XRAY VIEWS OF THE LEFT TIBIA AND FIBULA 03/20/2025 3:34 pm COMPARISON: 06/14/2018 HISTORY: ORDERING SYSTEM PROVIDED HISTORY: Trauma TECHNOLOGIST PROVIDED HISTORY: Trauma FINDINGS: There is extensive overlying bandages obscuring detail throughout the lower leg. No obvious acute fracture or dislocation can be seen. The bones are osteopenic. There are vascular calcifications throughout the lower leg. The joint spaces are intact. [facility] Milton Jones MD - 03/20/2025 EXAMINATION: 4 XRAY VIEWS OF THE LEFT TIBIA AND FIBULA 03/20/2025 3:34 pm COMPARISON: 06/14/2018 HISTORY: ORDERING SYSTEM PROVIDED HISTORY: Trauma TECHNOLOGIST PROVIDED HISTORY: Trauma FINDINGS: There is extensive overlying bandages obscuring detail throughout the lower leg. No obvious acute fracture or dislocation can be seen. The bones are osteopenic. There are vascular calcifications throughout the lower leg. The joint spaces are intact. IMPRESSION: Overlying bandages obscuring detail and limiting the exam. Within the limitations of the exam, no obvious acute bony abnormality can be seen. Recommend follow-up clinically and additional imaging, if indicated. Diffuse osteopenia with no obvious acute bony abnormality seen. [facility] Radiology Study observation (narrative) [facility] XR Tibia and Fibula - left 2 ViewsOrdered By: Milton Jones on 03-20-2025 [facility] Work Phone: Prot. Electroph, Blon 2024 Pathologist Review: Reviewed by pathologist: Blanquita Graves M.D. Normal [facility] Comment on above: Performed By: #### U MYAH, UA #### [facility] [address] [place] [address] Blade Aligner: Renan Huerta MD Prot. Elect-Interp Normal electrophoret ic pattern[facility] Comment on above: Performed By: #### U MYAH, UA #### [facility] [address] [place] [address] Blade Aligner: Renan Huerta MD XR Knee - right 1 or 2 Views on 02-21-2025 [facility] Imaging Result: AP and Lateral of right [...] knee revision arthroplasty with no prior comparisiion [facility] Radiology Study observation (narrative) [facility] Prot. Em, Blon 2024 Albumin [Mass/Vol] 3.5 g/dL Normal 3.2-5.2 [facility] Comment on above: Performed By: #### U RAMOO, UA #### [facility] [address] [place], [place] [id number] Blade Aligner: Renan Huerta MD Albumin, % 58 % Normal 56-66 [facility] Comment on above: Performed By: #### U RAMOO, UA #### [facility] [address] [place], [place] [id number] Blade Aligner: Renan Huerta MD Khdai-8-jqvhkjpoo 0.3 g/dL Normal 0.1-0.4 [facility] Comment on above: Performed By: #### U RAMOO, UA #### [facility] [address] [place], [place] [address] Blade Aligner: Renan Huerta MD Nmrac-3-bhbzpzhyp,% 4 % Normal 3-5 [facility] Comment on above: Performed By: #### U RAMOO, UA #### [facility] [address] [place] [address] Blade Aligner: Renan Huerta MD Lhzls-6-tbrkwljfr 0.6 g/dL Normal 0.5-0.9 [facility] Comment on above: Performed By: #### U RAMOO, UA #### [facility] [address] [place], [place] [address]28483 Blade Aligner: Renan Huerta MD Horxd-3-njggztrhr,% 10 % Normal 7-12 [facility] Comment on above: Performed By: #### U MICAO, UA #### [facility] [address] [place] [place], [place] [id number] Blade Aligner: Renan Huerta MD Beta-globulins 0.7 g/dL Normal 0.7-1.4 [facility] Comment on above: Performed By: #### U RAMOO, UA #### [facility] [address] [place] [address] Dr. [place], [place] 0[address]283 Blade Aligner: Renan Huerta MD Beta-globulins,% 12 % Normal 8-13 [facility] Comment on above: Performed By: #### U MYAH UA #### [facility] [address] [place] [address] Dr. [place], [place] [address] Blade Aligner: Renan Huerta MD Gamma-globulins 0.9 g/dL Normal 0.5-1.5 [facility] Comment on above: Performed By: #### Irving GLASGOW UA #### [facility] [address] [place] [address] Dr. [place], [place] [id number] Blade Aligner: Renan Huerta MD Gamma-globulins,% 15 % Normal 11-19 [facility] Comment on above: Performed By: #### U MYAH UA #### [address] [place], [place] [id number] Blade Aligner: Renan Huerta MD Total Prot. Sum 6.0 g/dL Low 6.3-8.2 [facility] Comment on above: Performed By: #### U MYAH, UA #### [facility] [address] [place] [address] Dr. [place], [place] [id number] Blade Aligner: Renan Huerta MD Total Prot. Sum,% 99 % Normal 98-102 [facility] Comment on above: Performed By: #### U MYAH, UA #### [facility] [address] [place] [address] Dr. [place], [place] [id number] Blade Aligner: Renan Huerta MD CBC with Auto Differentialon 02-16-2025 Basophils (Bld) [#/Vol] 0.05 10*3/uL [facility] Basophils/100 WBC (Bld) 1 % 0 - 2 % B on [facility] Eosinophils (Bld) [#/Vol] 0.06 10*3/uL [facility] Eosinophils/100 WBC (Bld) 1 % 1 - 4 % [facility] Erythrocyte distribution width (RBC) [Ratio] 16.5 % High 11.8 - 14.4 % [facility] Hematocrit (Bld) [Volume fraction] 30.1 % Low 36.3 - 47.1 % [facility] Hemoglobin (Bld) [Mass/Vol] 9.5 g/dL Low 11.9 - 15.1 g/dL [facility] Immature granulocytes (Bld) [#/Vol] [facility] Immature granulocytes/100 WBC (Bld) 0 % 0 [facility] Interpretation and review of laboratory results Abnormal [facility] Lymphocytes/100 WBC (Bld) 17 % Low 24 - 43 % [facility] Lymphocytes/100 WBC (Bld) 1.03 % Low [facility] MCH (RBC) [Entitic mass] 28 pg 25.2 - 33.5 pg [facility] MCHC (RBC) [Mass/Vol] 31.6 g/dL 28.4 - 34.8 g/dL [facility] MCV (RBC) [Entitic vol] 88.8 fL 82.6 - 102.9 fL [facility] Monocytes/100 WBC (Bld) 8 % 3 - 12 % [facility] Monocytes/100 WBC (Bld) 0.51 % B on [facility] Neutrophils/100 WBC (Bld) 73 % High 36 - 65 % [facility] Nucleated RBC/100 WBC (Bld) [Ratio] 0 % 0.0 per 100 WBC [facility] Platelet mean volume (Bld) [Entitic vol] 9.8 fL 8.1 - 13.5 fL [facility] Platelets (Bld) [#/Vol] 303 10*3/uL [facility] RBC (Bld) [#/Vol] 3.39 10*6/uL Low 3.95 - 5.11 m/uL [facility] Segmented neutrophils/100 WBC (Bld) 4.57 % [facility] WBC other (Bld) [#/Vol] 6.2 B on [facility] CBC with Diffon 02-16-2025 Abs. Basophil 0.05 k/uL Normal 0.00-0.20 [facility] Comment on above: Performed By: #### P TT #### [facility] [address] [place], [place] [address] Blade Aligner: Renan Huerta MD Abs.Imm.Granulocyte <0.03 Normal 0.00-0.30 [facility] Comment on above: Performed By: #### P TT #### [address] [place], [facility]83 Blade Aligner: Renan Huerta MD Abs.Neutrophil (Seg) 4.57 k/uL Normal 1.50-8.10 [facility] Comment on above: Performed By: #### P TT #### [address] [place], [place] [id number] Blade Aligner: Renan Huerta MD Basophils/100 WBC (Bld) 1 % Normal 0-2 [facility] Comment on above: Performed By: #### P TT #### [facility] [address] [place] [address] Dr. [place], [place] [address] Blade Aligner: Renan Huerta MD Eosinophils (Bld) [#/Vol] 0.06 10*3/uL Normal 0.00-0.44 [facility] Comment on above: Performed By: #### P TT #### [facility] [address] [place] [address] [place] [address] Blade Aligner: Renan Huerta MD Eosinophils/100 WBC (Bld) 1 % Normal 1-4 [facility] Comment on above: Performed By: #### P TT #### [facility] [address] [place] [address] Dr. [place], [facility]83 Blade Aligner: Renan Huerta MD Erythrocyte distribution width (RBC) [Ratio] 16.5 % High 11.8-14.4 [facility] Comment on above: Performed By: #### P TT #### [facility] [address] [place] [address] Dr. [place], [facility]83 Blade Aligner: Renan Huerta MD Hematocrit (Bld) [Volume fraction] 30.1 % Low 36.3-47.1 [facility] Comment on above: Performed By: #### P TT #### [facility] [address] [place] [address] Dr. [place], [facility]83 Blade Aligner: Renan Huerta MD Hemoglobin (Bld) [Mass/Vol] 9.5 g/dL Low 11.9-15.1 [facility] Comment on above: Performed By: #### P TT #### [facility] [address] [place] [address] Dr. [place], [facility]83 Blade Aligner: Renan Huerta MD Immature granulocytes/100 WBC (Bld) 0 % Normal 0 [facility] Comment on above: Performed By: #### P TT #### [facility] [address] [place] [address] Dr. [place], [facility]83 Blade Aligner: Renan Huerta MD Lymphocytes (Bld) [#/Vol] 1.03 10*3/uL Low 1.10-3.70 [facility] Comment on above: Performed By: #### P TT #### [facility] [address] [place] [address] Dr. [place], [facility]83 Blade Aligner: Renan Huerta MD Lymphocytes/100 WBC (Bld) 17 % Low 24-43 [facility] Comment on above: Performed By: #### P TT #### [facility] [address] [place] [address] Dr. [place], [facility]83 Blade Aligner: Renan Huerta MD MCH (RBC) [Entitic mass] 28.0 pg Normal 25.2-33.5 [facility] Comment on above: Performed By: #### P TT #### [facility] [address] [place] [address] Dr. [place], [facility]83 Blade Aligner: Renan Huerta MD MCHC (RBC) [Mass/Vol] 31.6 g/dL Normal 28.4-34.8 [facility] Comment on above: Performed By: #### P TT #### [facility] [address] [place] [address] Dr. [place], [facility]83 Blade Aligner: Renan Huerta MD MCV (RBC) [Entitic vol] 88.8 fL Normal 82.6-102.9 [facility] Comment on above: Performed By: #### P TT #### [address] [place], [facility]83 Blade Aligner: Renan Huerta MD Monocytes (Bld) [#/Vol] 0.51 10*3/uL Normal 0.10-1.20 [facility] Comment on above: Performed By: #### P TT #### [address] [place], [facility]83 Blade Aligner: Renan Huerta MD Monocytes/100 WBC (Bld) 8 % Normal 3-12 [facility] Comment on above: Performed By: #### P TT #### [facility] [address] [place] [address] Dr. [place], [place] [address] Blade Aligner: Renan Huerta MD Neutrophil (Seg) 73 % High 36-65 [facility] Comment on above: Performed By: #### P TT #### [facility] [address] [place], [facility]83 Blade Aligner: Renan Huerta MD NRBC Automated 0.0 per 100 WBC Normal 0.0 [facility] Comment on above: Performed By: #### P TT #### [facility] [address] [place] [facility]83 Blade Aligner: Renan Huerta MD Platelet mean volume (Bld) [Entitic vol] 9.8 fL Normal 8.1-13.5 [facility] Comment on above: Performed By: #### P TT #### [facility] [address] [place] [address] Blade Aligner: Renan Huerta MD Platelets (Bld) [#/Vol] 303 10*3/uL Normal 138-453 [facility] Comment on above: Performed By: #### P TT #### [facility] [address] [place], [place] [id number] Blade Aligner: Renan Huerta MD RBC (Bld) [#/Vol] 3.39 10*6/uL Low 3.95-5.11 [facility] Comment on above: Performed By: #### P TT #### [facility] [address] [place], [place] [address] Blade Aligner: Renan Huerta MD WBC (Bld) [#/Vol] 6.2 10*3/uL Normal 3.5-11.3 [facility] Comment on above: Performed By: #### P TT #### [facility] [address] [place], [place] [id number] Blade Aligner: Renan Huerta MD Comp Metabolic Profon 2024 Albumin [Mass/Vol] 3.8 g/dL Normal 3.5-5.2 [facility] Comment on above: Performed By: #### P TT #### [facility] [address] [place] [address] Blade Aligner: Renan Huerta MD Albumin/Glob Ratio 1.5 Normal 1.0-2.5 [facility] Comment on above: Performed By: #### P TT #### [facility] [address] [place] [address] Blade Aligner: Renan Huerta MD Alkaline Phos 68 U/L Normal 35-104 [facility] Comment on above: Performed By: #### P TT #### [facility] [address] [place], [place] [id number] Blade Aligner: Renan Huerta MD ALT [Catalytic activity/Vol] 12 U/L Normal 10-35 [facility] Comment on above: Performed By: #### P TT #### [facility] [address] [place], [place] [address]858383 Blade Aligner: Renan Huerta MD Anion gap [Moles/Vol] 9 mmol/L Normal 9-16 [facility] Comment on above: Performed By: #### P TT #### [facility] [address] [place], [place] [address]83 Blade Aligner: Renan Huerta MD AST [Catalytic activity/Vol] 24 U/L Normal 10-35 [facility] Comment on above: Performed By: #### P TT #### [facility] [address] [place], [place] [address]800383 Blade Aligner: Renan Huerta MD Bilirubin [Mass/Vol] 0.5 mg/dL Normal 0.00-1.20 [facility] Comment on above: Performed By: #### P TT #### [facility] [address] [place], [place] [address] Blade Aligner: Renan Huerta MD BUN/CRE Ratio 20 Normal 9-20 [facility] Comment on above: Performed By: #### P TT #### [facility] [address] [place], [place] [address] Blade Aligner: Renan Huerta MD Calcium [Mass/Vol] 8.5 mg/dL Low 8.6-10.4 [facility] Comment on above: Performed By: #### P TT #### [facility] [address] [place], [place] [address]783 Blade Aligner: Renan Huerta MD Chloride [Moles/Vol] 108 mmol/L High 98-107 [facility] Comment on above: Performed By: #### P TT #### [facility] [address] [place] [address] Blade Aligner: Renan Huerta MD CO2 [Moles/Vol] 22 mmol/L Normal 20-31 [facility] Comment on above: Performed By: #### P TT #### [facility] [address] [place] [address] Blade Aligner: Renan Huerta MD Creatinine [Mass/Vol] 1.1 mg/dL High 0.50-0.90 [facility] Comment on above: Performed By: #### P TT #### [facility] [address] [place] [address] Blade Aligner: Renan Huerta MD GFR/1.73 sq M.predicted among non-blacks MDRD (S/P/Bld) [Vol rate/Area] 48 mL/min/{1.73_m2} Low >60 [facility] Comment on above: Result Comment: These results are not intended for [...] following therapy that affects renal tubular secretion. Performed By: #### P TT #### [facility] [address] [place] [address] Blade Aligner: Renan Huerta MD Glucose [Mass/Vol] 99 mg/dL Normal 74-99 [facility] Comment on above: Performed By: #### P TT #### [facility] [address] [place] [address] Blade Aligner: Renan Huerta MD Potassium [Moles/Vol] 3.5 mmol/L Low 3.7-5.3 [facility] Comment on above: Performed By: #### P TT #### [facility] [address] [place] [address] Blade Aligner: Renan Huerta MD Protein [Mass/Vol] 6.4 g/dL Low 6.6-8.7 [facility] Comment on above: Performed By: #### P TT #### [facility] [address] [place], [place] 7015483 Blade Aligner: Renan Huerta MD Sodium [Moles/Vol] 139 mmol/L Normal 136-145 [facility] Comment on above: Performed By: #### P TT #### [facility] [address] [place] [address] Blade Aligner: Renan Huerta MD Urea nitrogen [Mass/Vol] 22 mg/dL Normal 8-23 [facility] Comment on above: Performed By: #### P TT #### [facility] [address] [place] [address] Blade Aligner: Renan Huerta MD [facility] Metabolic Pane [facility] 02-16-2025 Albumin [Mass/Vol] 3.8 g/dL 3.5 - 5.2 g/dL [facility] Albumin/Globulin [Mass ratio] 1.5 {ratio} 1.0 - 2.5 [facility] ALP [Catalytic activity/Vol] 68 U/L 35 - 104 U/L [facility] ALT [Catalytic activity/Vol] 12 U/L 10 - 35 U/L [facility] Anion gap [Moles/Vol] 9 mmol/L 9 - 16 mmol/L [facility] AST [Catalytic activity/Vol] 24 U/L 10 - 35 U/L [facility] Bilirubin [Mass/Vol] 0.5 mg/dL 0.00 - 1.20 mg/dL [facility] Calcium [Mass/Vol] 8.5 mg/dL Low 8.6 - 10. 4 mg/dL [facility] Chloride [Moles/Vol] 108 mmol/L High 98 - 10 7 mmol/L [facility] CO2 [Moles/Vol] 22 mmol/L 20 - 31 mmol/L [facility] Creatinine [Mass/Vol] 1.1 mg/dL High 0.50 - 0.90 mg/dL [facility] Robbie Hurd Filt Rate 48 Low - PINF [facility] Comment on above: These results are not intended for use [...] following therapy that affects renal tubular secretion. Glucose [Mass/Vol] 99 mg/dL 74 - 99 mg/dL [facility] Interpretation and review of laboratory results Abnormal [facility] Potassium [Moles/Vol] 3.5 mmol/L Low 3.7 - 5.3 mmol/L [facility] Protein [Mass/Vol] 6.4 g/dL Low 6.6 - 8.7 g/dL [facility] Sodium [Moles/Vol] 139 mmol/L 136 - 145 mmol/L [facility] Urea nitrogen [Mass/Vol] 22 mg/dL 8 - 23 mg/dL [facility] Urea nitrogen/Creatinine [Mass ratio] 20 mg/mg 9 - 20 [facility] Ferritinon 02-16-2025 Ferritin [Mass/Vol] 63 ng/mL [facility] Comment on above: No reference range e stablished for this age/gender. Ferritin [Mass/Vol] 63 ng/mL Normal [facility] Comment on above: Result Comment: No r eference range established for this age/gender. Performed By: #### P TT #### [facility] [address] [place] [address] Blade Aligner: Renan Huerta MD Free Langlois + Lambdaon 2024 Free Langlois Lt Chains 71.2 mg/L High <20.7 [facility] Comment on above: Result Comment: Perf ormed using Diazyme reagent on Sharath Marilyn Pro. Results obtained with different assay methods cannot be used interchangeably. Performed By: #### P TT #### [address] [place], [place] [address]83 Blade Aligner: Renan Huerta MD Free Langlois/Lambda Rat 1.61 Normal 0.22-1.74 [facility] Comment on above: Performed By: #### P TT #### [facility] [address] [place] [address] Blade Aligner: Renan Huerta MD Free Lambda Lt Chains 44.1 mg/L High 4.2-27.7 [facility] Comment on above: Result Comment: Perf ormed using Diazyme reagent on Sharath Marilyn Pro. Results obtained with different assay methods cannot be used interchangeably. Performed By: #### P TT #### [address] [place] [address] Blade Aligner: Renan Huerta MD Immunoglobulin Panel (IgG, I gA, IgM)on 02-16-2025 IgA [Mass/Vol] 311 mg/dL 70 - 400 mg/dL [facility] IgG [Mass/Vol] 1046 mg/dL 700 - 1600 mg/dL [facility] IgM [Mass/Vol] 54 mg/dL 40 - 230 mg/dL [facility] Immunoglobulinson 02-16-2025 IgA [Mass/Vol] 311 mg/dL Normal 70-400 [facility] Comment on above: Performed By: #### P TT #### [address] [place] [address] Blade Aligner: Renan Huerta MD IgG [Mass/Vol] 1046 mg/dL Normal 700-1600 [facility] Comment on above: Performed By: #### P TT #### [address] [place] [address] Blade Aligner: Renan Huerta MD IgM [Mass/Vol] 54 mg/dL Normal 40-230 [facility] Comment on above: Performed By: #### P TT #### [facility] [address] [place], [place] [phone] Blade Aligner: Renan Huerta MD Iron Binding Cap.on 02-17-20 25 % Fe Saturation 10 % Low 20-55 [facility] Comment on above: Performed By: #### P TT #### [facility] [facility] [address] [place], [place] [id number] Blade Aligner: Renan Huerta MD Iron [Mass/Vol] 23 ug/dL Low 37-145 [facility] Comment on above: Performed By: #### P TT #### [facility] [address] [place], [place] [id number] Blade Aligner: Renan Huerta MD Total Fe Binding Cap 222 ug/dL Low 250-450 [facility] Comment on above: Performed By: #### P TT #### [facility] [address] [place], [place] [address] Blade Aligner: Renan Huerta MD Unbound Fe Bind Cap 199 ug/dL Normal 112-347 [facility] Comment on above: Performed By: #### P TT #### [facility] [address] [place], [place] [address] Blade Aligner: Renan Huerta MD Iron and TIBCon 02-16-2025 Interpretation and review of laboratory results Abnormal [facility] Iron [Mass/Vol] 23 ug/dL Low 37 - 145 ug/dL [facility] Iron binding capacity [Mass/Vol] 222 ug/dL Low 250 - 450 ug/dL [facility] Iron saturation [Mass fraction] 10 % Low 20 - 55 % [facility] UIBC 199 ug/dL 112 - 347 ug/dL [facility] Langlois/Lambda Quantitative Fr ee Light Chains, Serumon 02-16-2025 Free Langlois/Lambda Ratio 1.61 0.22 - 1.74 [facility] Immunoglobulin light chains.kappa.free (S) [Mass/Vol] 71.2 mg/L High NINF - 20.7 mg/L [facility] Comment on above: Performed using Esparza yme reagent on Sharath Marilyn Pro. Results obtained with different assay methods cannot be used interchangeably. Immunoglobulin light chains.lambda.free [Mass/Vol] 44.1 mg/L High 4.2 - 27.7 mg/L [facility] Comment on above: Performed using Esparza yme reagent on Sharath Marilyn Pro. Results obtained with different assay methods cannot be used interchangeably. Interpretation and review of laboratory results Abnormal [facility] CBC WITH DIFFon 02-16- 025 Basophils/100 WBC (Bld) 1 % 0 - 2 % N [facility] Eosinophils/100 WBC (Bld) 1 % 1 - 4 % [facility] Erythrocyte distribution width (RBC) [Ratio] 16.5 % High 11.8 - 14.4 % [facility] Hematocrit (Bld) [Volume fraction] 30.1 % Low 36.3 - 47.1 % [facility] Hemoglobin (Bld) [Mass/Vol] 9.5 g/dL Low 11.9 - 15.1 g/dL [facility] Immature granulocytes/100 WBC (Bld) 0 % 0 [facility] Interpretation and review of laboratory results Abnormal [facility] Lymphocytes/100 WBC (Bld) 17 % Low 24 - 43 % [facility] MCH (RBC) [Entitic mass] 28 pg 25.2 - 33.5 pg [facility] MCHC (RBC) [Mass/Vol] 31.6 g/dL 28.4 - 34.8 g/dL [facility] MCV (RBC) [Entitic vol] 88.8 fL 82.6 - 102.9 fL [facility] 0.05 [facility]. EOSINOPHIL 0.06 [facility] LYMPH 1.03 Low [facility] MONOCYTE 0.51 [facility].IMM.GRANULOCYTE <0.03 [facility].NEUTROPHIL (SEG) 4.57 [facility] NR[facility] AUTOMATED 0 0.0 per 100 WBC [facility] PLATE[facility] COUNT 303 [facility] 6.2 [facility] Monocytes/100 WBC (Bld) 8 % 3 - 12 % N [facility] Platelet mean volume (Bld) [Entitic vol] 9.8 fL 8.1 - 13.5 fL [facility] RBC (Bld) [#/Vol] 3.39 10*6/uL Low 3.95 - 5.11 m/uL [facility] Segmented neutrophils/100 WBC (Bld) 73 % High 36 - 65 % [facility] Original Ordering Provider: RHODA ROCHA [facility] No Panel Informationon 02-16 [facility] Prot. Electroph, Blon 2024 Protein [Mass/Vol] 6.0 g/dL Low 6.6-8.7 [facility] Comment on above: Performed By: #### U MYAH UA #### [facility] [address] [place] [address] Blade Aligner: Renan Huerta MD ALL CBC WITH AUTO DIFFon Erythrocyte distribution width (RBC) [Ratio] 16.4 % High 11.8 - 14.4 % [facility] Hematocrit (Bld) [Volume fraction] 30.5 % Low 36.3 - 47.1 % [facility] Hemoglobin (Bld) [Mass/Vol] 9.5 g/dL Low 11.9 - 15.1 g/dL [facility] Interpretation and review of laboratory results Abnormal [facility] MCH (RBC) [Entitic mass] 28 pg 25.2 - 33.5 pg [facility] MCHC (RBC) [Mass/Vol] 31.1 g/dL 28.4 - 34.8 g/dL [facility] MCV (RBC) [Entitic vol] 90 fL 82.6 - 102.9 fL [facility] AUTOMATED 0 0.0 per 100 WBC [facility] 321 [facility] COUNT 6.7 [facility] Platelet mean volume (Bld) [Entitic vol] 9.9 fL 8.1 - 13.5 fL [facility] RBC (Bld) [#/Vol] 3.39 10*6/uL Low 3.95 - 5.11 m/uL [facility] Original Ordering Provider: TONI MD BRUHL [facility] 02-13-2025 Erythrocyte distribution width (RBC) [Ratio] 16.4 % High 11.8 - 14.4 % [facility] Hematocrit (Bld) [Volume fraction] 30.5 % Low 36.3 - 47.1 % [facility] Hemoglobin (Bld) [Mass/Vol] 9.5 g/dL Low 11.9 - 15.1 g/dL [facility] Interpretation and review of laboratory results Abnormal [facility] MCH (RBC) [Entitic mass] 28 pg 25.2 - 33.5 pg [facility] MCHC (RBC) [Mass/Vol] 31.1 g/dL 28.4 - 34.8 g/dL [facility] MCV (RBC) [Entitic vol] 90 fL 82.6 - 102.9 fL [facility] Nucleated RBC/100 WBC (Bld) [Ratio] 0 % 0.0 per 100 WBC [facility] Platelet mean volume (Bld) [Entitic vol] 9.9 fL 8.1 - 13.5 fL [facility] Platelets (Bld) [#/Vol] 321 10*3/uL [facility] RBC (Bld) [#/Vol] 3.39 10*6/uL Low 3.95 - 5.11 m/uL [facility] WBC other (Bld) [#/Vol] 6.7 B [facility] Erythrocyte distribution width (RBC) [Ratio] 16.4 % High 11.8-14.4 [facility] Comment on above: Performed By: #### U RAMOO, UA #### [facility] [address] [place] [address] Blade Aligner: Renan Huerta MD Hematocrit (Bld) [Volume fraction] 30.5 % Low 36.3-47.1 [facility] Comment on above: Performed By: #### U RAMOO, UA #### [facility] [address] [place] [address] Blade Aligner: Renan Huerta MD Hemoglobin (Bld) [Mass/Vol] 9.5 g/dL Low 11.9-15.1 [facility] Comment on above: Performed By: #### Irving GLASGOW UA #### [address] [place], [place] [address] Blade Aligner: Renan Huerta MD MCH (RBC) [Entitic mass] 28.0 pg Normal 25.2-33.5 [facility] Comment on above: Performed By: #### Irving GLASGOW UA #### [address] [place], [place] [address] Blade Aligner: Renan Huerta MD MCHC (RBC) [Mass/Vol] 31.1 g/dL Normal 28.4-34.8 [facility] Comment on above: Performed By: #### TERRENCE CONCEPCION #### [address] [place], [place] [address] Blade Aligner: Renan Huerta MD MCV (RBC) [Entitic vol] 90.0 fL Normal 82.6-102.9 [facility] Comment on above: Performed By: #### TERRENCE CONCEPCION #### [address] [place], [place] [address] Blade Aligner: Renan Huerta MD NRBC Automated 0.0 per 100 WBC Normal 0.0 [facility] Comment on above: Performed By: #### TERRENCE CONCEPCION #### [address] [place], [place] [address] Blade Aligner: Renan Huerta MD Platelet mean volume (Bld) [Entitic vol] 9.9 fL Normal 8.1-13.5 [facility] Comment on above: Performed By: #### TERRENCE CONCEPCION #### [address] [place], [place] [address] Blade Aligner: Renan Huerta MD Platelets (Bld) [#/Vol] 321 10*3/uL Normal 138-453 [facility] Comment on above: Performed By: #### U MICAO, UA #### [facility] [address] [place] [address] Blade Aligner: Renan Huerta MD RBC (Bld) [#/Vol] 3.39 10*6/uL Low 3.95-5.11 [facility] Comment on above: Performed By: #### U MICAO, UA #### [facility] [address] [place] [address] Blade Aligner: Renan Huerta MD WBC (Bld) [#/Vol] 6.7 10*3/uL Normal 3.5-11.3 [facility] Comment on above: Performed By: #### U MICAO, UA #### [facility] [address] [place] [address] Blade Aligner: Renan Huerta MD ALL HEMOGLOBINon 01-24-2025 Hemoglobin (Bld) [Mass/Vol] 9.5 g/dL Low 12.0 - 16.0 g/dL [facility] Interpretation and review of laboratory results Abnormal [facility] CT Lumbar spine WO contrasto n 01-24-2025 [facility] Radiology Study observation (narrative) [facility] CT Pelvis bones WO contrasto n 01-24-2025 [facility] Radiology Study observation (narrative) [facility] CT SPINE CERVICAL W/O CONTRA STon 01-24-2025 [facility] Radiology Study observation (narrative) [facility] RT PULMONARY FUNCTION TESTon 01-24-[address] [address] Respiratory Report Signed Patient: LEYLA LAMBERT MR#: [id number] : 1940 Acct:[id number] Age/Sex: 84 / F ADM Date: 01/24/25 Loc: CARD Attending Dr: Douglas Will M.D. Ordering Physician: Douglas Will M.D. Date of Service: 01/24/25 Procedure(s): RT pulmonary function test Accession Number(s): [id number] cc: [facility] Test Date: 2025-01-24 Pat Name: LEYLA LAMBERT Department: Room: - Gender: Female Drying Rack Changer: Frederick Gallegos RRT : 1940 Requested By: DOUGLAS WILL Order Number: [id number] Reading MD: Mansoor Maldonado Interpretive Statements Pulmonary function testing was completed according to ATS criteria. Findings were considered accurate and reproducible, with exception of DLCO which did not meet ATS standards. Both pre- and post-bronchodilator values utilized for spirometry. Spirometry (based on pre-bronchodilator values): -FEV1/FVC: Reduced @ 61% -FEV1: Normal @ 102% -FVC: Normal @ 122% -There is no significant bronchodilator response. Lung volumes by plethysmography (based on pre-bronchodilator values): -RV: Increased @ 173% -TLC: Increased @ 124% Diffusion capacity: -DLCO: Mild reduction @ 73% when corrected for Hb 9.5g/dL Impressions: -Spirometry suggests mild obstruction. An elevated RV and TLC suggest air trapping and hyperinflation respectively. There is a mildly reduced diffusion capacity. 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 A mild anemia is present. Clinical correlation required. Electronically Signed On 01-24-2025 16:47:59 EDT by Mansoor Maldonado Dictated By: Mansoor Maldonado D.O. Signed By: 01/24/25 1648 DD/ 0841 TD/TT: [employer] Goods Worker: [facility] Radiology, Radiologi MD ilsa - 01/24/2025 [place] [address] Respiratory Report Signed Patient: LEYLA LAMBERT MR#: [id number] : 1940 Acct:[id number] Age/Sex: 84 / F ADM Date: 01/24/25 Loc: CARD Attending Dr: Douglas Will M.D. Ordering Physician: Douglas Will M.D. Date of Service: 01/24/25 Procedure(s): RT pulmonary function test Accession Number(s): [id number] cc: [facility] Test Date: 2025-01-24 Pat Name: LEYLA LAMBERT Department: Room: - Gender: Female Drying Rack Changer: Frederick Gallegos RRT : 1940 Requested By: DOUGLAS WILL Order Number: [id number] Reading MD: Mansoor Maldonado Interpretive Statements Pulmonary function testing was completed according to ATS criteria. Findings were considered accurate and reproducible, with exception of DLCO which did not meet ATS standards. Both pre- and post-bronchodilator values utilized for spirometry. Spirometry (based on pre-bronchodilator values): -FEV1/FVC: Reduced @ 61% -FEV1: Normal @ 102% -FVC: Normal @ 122% -There is no significant bronchodilator response. Lung volumes by plethysmography (based on pre-bronchodilator values): -RV: Increased @ 173% -TLC: Increased @ 124% Diffusion capacity: -DLCO: Mild reduction @ 73% when corrected for Hb 9.5g/dL Impressions: -Spirometry suggests mild obstruction. An elevated RV and TLC suggest air trapping and hyperinflation respectively. There is a mildly reduced diffusion capacity. 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 A mild anemia is present. Clinical correlation required. Electronically Signed On 01-24-2025 16:47:59 EDT by Mansoor Maldonado Dictated By: Mansoor Maldonado D.O. Signed By: 01/24/25 1648 DD/ 0841 TD/TT: Optical Goods Worker: [facility] Radiology Study observation (narrative) [facility] RT PULMONARY FUNCTION TESTOr dered By: Radiologist Radiology on 01-24-2025 [facility] Work Phone: XR Elbow - right 3 Viewson 0 01-24-2025 [facility] Radiology Study observation (narrative) [facility] XR Elbow - right 3 ViewsOrde red By: Marie Ha on 01-24-2025 [facility] Radiology Study observation (narrative) [facility] XR Shoulder - right 2 Viewso n 01-24-2025 [facility] Radiology Study observation (narrative) [facility] CBC W Auto Differential pane l (Bld)on 12-23-2024 ABSOLUTE BASOPHIL 0 10*3/uL 0.0 - 0.2 10*3/uL [facility] Basophils/100 WBC (Bld) 0.5 % N [facility] DIFFERENTIAL TYPE AUTOMATED DIFFERENTIAL [facility] Comment on above: PERFORMED AT [facility] [address],[place] [address] Eosinophils (Bld) [#/Vol] 0 10*3/uL 0.0 - 0.4 10*3/[facility]L [facility] Eosin[facility]/100 WBC (Bld) 0.5 % [facility] Erythrocyte distribution width (RBC) [Ratio] 16.2 % High 11.5 - 15 % [facility] Hematocrit (Bld) [Volume fraction] 28.4 % Low 35 - 47 % [facility] Hemoglobin (Bld) [Mass/Vol] 9.5 g/dL Low 11.7 - 15.5 g/dL [facility] Interpretation and review of laboratory results Abnormal [facility] Lymphocytes (Bld) [#/Vol] 0.8 10*3/uL Low 1.0 - 3.5 10*3/uL [facility] Lymphocytes/100 WBC (Bld) 10.9 % [facility] MCH (RBC) [Entitic mass] 28.1 pg 27 - 34 pg [facility] MCHC (RBC) [Mass/Vol] 33.4 g/dL 32 - 3 6 g/dL [facility] MCV (RBC) [Entitic vol] 84 fL 80 - 100 fL [facility] Monocytes (Bld) [#/Vol] 0.5 10*3/uL 0.0 - 0.9 10*3/uL [facility] Monocytes/100 WBC (Bld) 6.8 % N [facility] Neutrophils (Bld) [#/Vol] 5.8 10*3/uL 1.5 - 6.6 10*3/uL [facility] Neutrophils/100 WBC (Bld) 81.3 % [facility] Platelet mean volume (Bld) [Entitic vol] 8.5 fL 7 - 12 fL [facility] Platelets (Bld) [#/Vol] 338 10*3/uL [facility] RBC (Bld) [#/Vol] 3.37 10*6/uL Low [facility] WBC corrected for nucl RBC Auto (Bld) [#/Vol] 7.2 [facility] CBC WITH AUTO DIFFERENTIALon 12-23-2024 BASOPHILS ABSOLUTE COUNT (10*3/UL) BY AUTOMATED COUNT 0.0 10*3/uL Normal 0.0-0.2 [facility] Comment on above: Performed By: #### 4 8066-5 #### [facility] ([id number]) [address] [place] [address] #### CBCA, HA1C, CMP, -1 #### [facility] ([id number]) [address] [place] [address], [address] [place] [address] BASOPHILS RELATIVE PERCENT BY AUTOMATED COUNT 0.5 % Normal [facility] Comment on above: Performed By: #### 4 8066-5 #### [facility] ([id number]) [address] [place] [address] #### CBCA, HA1C, CMP, #### [facility] ([id number]) [address] [place] [address], [address] [place] [address] CELLAVISION DIFFERENTIAL TYPE AUTOMATED DIFFERENTIAL Normal [facility] Comment on above: Performed By: #### 4 8066-5 #### [facility] ([id number]) [address] [place] [address] #### CBCA, HA1C, CMP, #### [facility] ([id number]) [address] [place] [address], [address] [place] [address] Eosinophils (Bld) [#/Vol] 0.0 10*3/uL Normal 0.0-0.4 [facility] Comment on above: Performed By: #### 4 8066-5 #### [facility] ([id number]) [address] [place] [address] #### CBCA, HA1C, CMP, #### [facility] ([id number]) [facility], [address] [place] [address] EOSINOPHILS RELATIVE PERCENT BY AUTOMATED COUNT 0.5 % Normal [facility] Comment on above: Performed By: #### 4 8066-5 #### [facility] ([id number]) [address] [place] [address] #### CBCA, HA1C, CMP, #### [facility] ([id number]) [address] [facility], [address] [place] [address] Erythrocyte distribution width (RBC) [Ratio] 16.2 % High 11.5-15 [facility] Comment on above: Performed By: #### 4 8066-5 #### [facility] ([id number]) [address] [place] [address] #### CBCA, HA1C, CMP, #### [facility] ([id number]) [address] [facility], [address] [place] [address] Hematocrit (Bld) [Volume fraction] 28.4 % Low 35-47 [facility] Comment on above: Performed By: #### 4 8066-5 #### [facility] ([id number]) [address] [place] [address] #### CBCA, HA1C, CMP, #### [facility] ([id number]) [address] [facility], [address] [place] [address] Hemoglobin (Bld) [Mass/Vol] 9.5 g/dL Low 11.7-15.5 [facility] Comment on above: Performed By: #### 4 8066-5 #### [facility] ([id number]) [address] [place] [address] #### CBCA, HA1C, CMP, #### [facility] ([id number]) [address] [facility], [address] [place] [address] LYMPHOCYTES ABSOLUTE COUNT (10*3/UL) BY AUTOMATED COUNT 0.8 10*3/uL Low 1.0-3.5 [facility] Comment on above: Performed By: #### 4 8066-5 #### [facility] ([id number]) [address] [place] [address] #### CBCA, HA1C, CMP, #### [facility] ([id number]) [address], [address] [place] [address] LYMPHOCYTES RELATIVE PERCENT BY AUTOMATED COUNT 10.9 % Normal [facility] Comment on above: Performed By: #### 4 8066-5 #### [facility] ([id number]) [address] [place] [address] #### CBCA, HA1C, CMP, #### [facility] ([id number]) [address], [address] [place] [address] MCH (RBC) [Entitic mass] 28.1 pg Normal 27-34 [facility] Comment on above: Performed By: #### 4 8066-5 #### [facility] ([id number]) [address] [place] [address] #### CBCA, HA1C, CMP, #### [facility] ([id number]) [address], [address] [place] [address] MCHC (RBC) [Mass/Vol] 33.4 g/dL Normal 32-36 [facility] Comment on above: Performed By: #### 4 8066-5 #### [facility] ([id number]) [address] [place] [address] #### CBCA, HA1C, CMP, #### [facility] ([id number]) [address], [address] [place] [address] MCV (RBC) [Entitic vol] 84 fL Normal 80-100 P [facility] Comment on above: Performed By: #### 4 8066-5 #### [facility] ([id number]) [address] [place] [address] #### CBCA, HA1C, CMP, 29240-4 #### [facility] ([id number]) [address], [address] [place] [address] MONOCYTES ABSOLUTE COUNT (10*3/UL) BY AUTOMATED COUNT 0.5 10*3/uL Normal 0.0-0.9 [facility] Comment on above: Performed By: #### 4 8066-5 #### [facility] ([id number]) [address] [place] [address] #### CBCA, HA1C, CMP, #### [facility] ([id number]) [address] [facility], [address] [place] [address] MONOCYTES RELATIVE PERCENT BY AUTOMATED COUNT 6.8 % Normal [facility] Comment on above: Performed By: #### 4 8066-5 #### [facility] ([id number]) [address] [place] [address] #### CBCA, HA1C, CMP, #### [facility] ([id number]) [address] [facility], [address] [place] [address] NEUTROPHILS ABSOLUTE COUNT BY AUTOMATED COUNT 5.8 10*3/uL Normal 1.5-6.6 [facility] Comment on above: Performed By: #### 4 8066-5 #### [facility] ([id number]) [address] [place] [address] 26005 #### CBCA, HA1C, CMP, #### [facility] ([id number]) [address] [facility], [address] [place] [address] NEUTROPHILS RELATIVE PERCENT BY AUTOMATED COUNT 81.3 % Normal [facility] Comment on above: Performed By: #### 4 8066-5 #### [facility] ([id number]) [address] [place] [address] 05452 #### CBCA, HA1C, CMP, #### [facility] ([id number]) [address] [facility], [address] [place] [address] Platelet mean volume (Bld) [Entitic vol] 8.5 fL Normal 7-12 [facility] Comment on above: Performed By: #### 4 8066-5 #### [facility] ([id number]) [address] [place] [address] 22798 #### CBCA, HA1C, CMP, #### [facility] ([id number]) [facility], [facility] [address] [place] [address] Platelets (Bld) [#/Vol] 338 10*3/uL Normal 150-450 [facility] Comment on above: Performed By: #### 4 8066-5 #### [facility] ([id number]) [address] [place] [address] 33427 #### CBCA, HA1C, CMP, #### [facility] ([id number]) [facility], [address] [place] [address] RBC COUNT 3.37 X10E12/L Low 3.8-5.2 [facility] Comment on above: Performed By: #### 4 8066-5 #### [facility] ([id number]) [address] [place] [address] 32103 #### CBCA, HA1C, CMP, -1 #### [facility] ([id number]) [address], [address] [place] [address] WBC (Bld) [#/Vol] 7.2 10*3/uL Normal 4-11 [facility] Comment on above: Performed By: #### 4 8066-5 #### [facility] ([id number]) [address] [place] [address] 92379 #### CBCA, HA1C, CMP, -1 #### [facility] ([id number]) [address], [address] [place] [address] CBC WITH AUTO DIFFERENTIALon 12-16-2024 BASOPHILS ABSOLUTE COUNT (10*3/UL) BY AUTOMATED COUNT 0.1 10*3/uL Normal [facility] Comment on above: Performed By: #### 4 8066-5 #### [facility] ([id number]) [address] [place] [address] 07716 #### CBCA, HA1C, CMP, #### [facility] ([id number]) [address], [address] [place] [address] BASOPHILS RELATIVE PERCENT BY AUTOMATED COUNT 0.8 % Normal [facility] Comment on above: Performed By: #### 4 8066-5 #### [facility] ([id number]) [address] [place] [address] 89225 #### CBCA, HA1C, CMP, 99595-8 #### [facility] ([id number]) [address], [address] [place] [address] CELLAVISION DIFFERENTIAL TYPE AUTOMATED DIFFERENTIAL Normal [facility] Comment on above: Performed By: #### 4 8066-5 #### [facility] ([id number]) [address] [place] [address] 57375 #### CBCA, HA1C, CMP, 58070-5 #### [facility] ([id number]) [address] [place] [address], [address] [address] Eosinophils (Bld) [#/Vol] 0.2 10*3/uL Normal [facility] Comment on above: Performed By: #### 4 8066-5 #### [facility] ([id number]) [address] [place] [address] 18108 #### CBCA, HA1C, CMP, 51128-5 #### [facility] ([id number]) [address] [place] [address], [address] [address] EOSINOPHILS RELATIVE PERCENT BY AUTOMATED COUNT 3.9 % Normal [facility] Comment on above: Performed By: #### 4 8066-5 #### [facility] ([id number]) [address] [place] [address] 94317 #### CBCA, HA1C, CMP, 34914-2 #### [facility] ([id number]) [address] [place] [address], [address] [address] Erythrocyte distribution width (RBC) [Ratio] 16.0 % High 11.5-15 [facility] Comment on above: Performed By: #### 4 8066-5 #### [facility] ([id number]) [address] [place] [address]151 #### CBCA, HA1C, CMP, 03132-3 #### [facility] ([id number]) [address] [place] [address], [address] [address] Hematocrit (Bld) [Volume fraction] 24.7 % Low 35-47 [facility] Comment on above: Performed By: #### 4 8066-5 #### [facility] ([id number]) [address] [place] [address] 75512 #### CBCA, HA1C, CMP, #### [facility] ([id number]) [address], [address] [place] [address] Hemoglobin (Bld) [Mass/Vol] 8.5 g/dL Low 11.7-15.5 [facility] Comment on above: Performed By: #### 4 8066-5 #### [facility] ([id number]) [address] [place] [address] 78089 #### CBCA, HA1C, CMP, #### [facility] ([id number]) [address], [address] [place] [address] LYMPHOCYTES ABSOLUTE COUNT (10*3/UL) BY AUTOMATED COUNT 1.1 10*3/uL Normal [facility] Comment on above: Performed By: #### 4 8066-5 #### [facility] ([id number]) [address] [place] [address] 27266 #### CBCA, HA1C, CMP, #### [facility] ([id number]) [address], [address] [place] [address] LYMPHOCYTES RELATIVE PERCENT BY AUTOMATED COUNT 17.5 % Normal [facility] Comment on above: Performed By: #### 4 8066-5 #### [facility] ([id number]) [address] [place] [address] #### CBCA, HA1C, CMP, #### [facility] ([id number]) [address], [address] [place] [address] MCH (RBC) [Entitic mass] 29.0 pg Normal 27-34 [facility] Comment on above: Performed By: #### 4 8066-5 #### [facility] ([id number]) [address] [place] [address] 04282 #### CBCA, HA1C, CMP, #### [facility] ([id number]) [address], [address] [place] [address] MCHC (RBC) [Mass/Vol] 34.4 g/dL Normal 32-36 [facility] Comment on above: Performed By: #### 4 8066-5 #### [facility] ([id number]) [address] [place] [address] 79334 #### CBCA, HA1C, CMP, #### [facility] ([id number]) [address], [address] [place] [address] MCV (RBC) [Entitic vol] 84 fL Normal 80-100 [facility] Comment on above: Performed By: #### 4 8066-5 #### [facility] ([id number]) [address] [place] [address] 32248 #### CBCA, HA1C, CMP, #### [facility] ([id number]) [address], [address] [place] [address] MONOCYTES ABSOLUTE COUNT (10*3/UL) BY AUTOMATED COUNT 0.6 10*3/uL Normal [facility] Comment on above: Performed By: #### 4 8066-5 #### [facility] ([id number]) [address] [place] [address]147 #### CBCA, HA1C, CMP, #### [facility] ([id number]) [address], [address] [place] [address] MONOCYTES RELATIVE PERCENT BY AUTOMATED COUNT 8.9 % Normal [facility] Comment on above: Performed By: #### 4 8066-5 #### [facility] ([id number]) [address] [place] [address] 32713 #### CBCA, HA1C, CMP, #### [facility] ([id number]) [address], [address] [place] [address] NEUTROPHILS ABSOLUTE COUNT BY AUTOMATED COUNT 4.4 10*3/uL Normal [facility] Comment on above: Performed By: #### 4 8066-5 #### [facility] ([id number]) [address] [place] [address] 110[address] #### CBCA, HA1C, CMP, #### [facility] ([id number]) [address], [address] [place] [address] NEUTROPHILS RELATIVE PERCENT BY AUTOMATED COUNT 68.9 % Normal [facility] Comment on above: Performed By: #### 4 8066-5 #### [facility] ([id number]) [address] [place] [address]2533 #### CBCA, HA1C, CMP, #### [facility] ([id number]) [address], [address] [place] [address] Platelet mean volume (Bld) [Entitic vol] 8.4 fL Normal 7-12 [facility] Comment on above: Performed By: #### 4 8066-5 #### [facility] ([id number]) [address] [place] [address] #### CBCA, HA1C, CMP, #### [facility] ([id number]) [address], [address] [place] [address] Platelets (Bld) [#/Vol] 245 10*3/uL Normal 150-450 [facility] Comment on above: Performed By: #### 4 8066-5 #### [facility] ([id number]) [address] [place] [address] 21629 #### CBCA, HA1C, CMP, #### [facility] ([id number]) [address], [address] [place] [address] RBC COUNT 2.94 X10E12/L Low 3.8-5.2 [facility] Comment on above: Performed By: #### 4 8066-5 #### [facility] ([id number]) [address] [place] [address] #### CBCA, HA1C, CMP, #### [facility] ([id number]) [address], [address] [place] [address] WBC (Bld) [#/Vol] 6.4 10*3/uL Normal 4-11 [facility] Comment on above: Performed By: #### 4 8066-5 #### [facility] ([id number]) [address] [place] [address] 82597 #### CBCA, HA1C, CMP, #### [facility] ([id number]) [address], [address] [place] [address] COMPREHENSIVE METABOLIC PANE Ton 12-16-2024 Albumin [Mass/Vol] 2.6 g/dL Low 3.2-5.3 [facility] Comment on above: Performed By: #### 4 8066-5 #### [facility] ([id number]) [address] [place] [address] 44282 #### CBCA, HA1C, CMP, #### [facility] ([id number]) [address], [address] [place] [address] ALP [Catalytic activity/Vol] 57 U/L Normal 39-130 [facility] Comment on above: Performed By: #### 4 8066-5 #### [facility] ([id number]) [address] [place] [address] 53365 #### CBCA, HA1C, CMP, #### [facility] ([id number]) [address] [facility], [address] [place] [address] ALT [Catalytic activity/Vol] 10 U/L Normal <=31 [facility] Comment on above: Performed By: #### 4 8066-5 #### [facility] ([id number]) [address] [place] [address] #### CBCA, HA1C, CMP, #### [facility] ([id number]) [address] [facility], [address] [place] [address] Anion gap [Moles/Vol] 7 mmol/L Normal 5-15 [facility] Comment on above: Performed By: #### 4 8066-5 #### [facility] ([id number]) [address] [place] [address] 16825 #### CBCA, HA1C, CMP, #### [facility] ([id number]) [address] [facility], [address] [place] [address] AST [Catalytic activity/Vol] 17 U/L Normal <=41 [facility] Comment on above: Performed By: #### 4 8066-5 #### [facility] ([id number]) [address] [place] [address] 02426 #### CBCA, HA1C, CMP, #### [facility] ([id number]) [address] [facility], [address] [place] [address] Bilirubin [Mass/Vol] 0.7 mg/dL Normal 0.3-1.2 [facility] Comment on above: Performed By: #### 4 8066-5 #### [facility] ([id number]) [address] [place] [address] 20772 #### CBCA, HA1C, CMP, 75093-0 #### [facility] ([id number]) [address], [address] [place] [address] Calcium [Mass/Vol] 8.8 mg/dL Normal 8.5-10.5 [facility] Comment on above: Performed By: #### 4 8066-5 #### [facility] ([id number]) [address] [place] [address] 14723 #### CBCA, HA1C, CMP, 08235-6 #### [facility] ([id number]) [address], [address] [place] [address] Chloride [Moles/Vol] 107 mmol/L Normal 98-109 [facility] Comment on above: Performed By: #### 4 8066-5 #### [facility] ([id number]) [address] [place] [address] 32699 #### CBCA, HA1C, CMP, 30994-7 #### [facility] ([id number]) [address], [address] [place] [address] CO2 [Moles/Vol] 24 mmol/L Normal 22-32 [facility] Comment on above: Performed By: #### 4 8066-5 #### [facility] ([id number]) [address] [place] [address] 13491 #### CBCA, HA1C, CMP, #### [facility] ([id number]) [address], [address] [place] [address] Creatinine [Mass/Vol] 1.10 mg/dL High 0.40-1.00 [facility] Comment on above: Result Comment: METH OD TRACEABLE TO IDMS STANDARD Performed By: #### 4 8066-5 #### [facility] ([id number]) [address] [place] [address] 28922 #### TREY MEEHAN, CMP, 82574-8 #### [facility] ([id number]) [address], [address] [place] [address] GFR/1.73 sq M.predicted among non-blacks MDRD (S/P/Bld) [Vol rate/Area] 49 mL/min/{1.73_m2} Low >=60 [facility] Comment on above: Result Comment: eGFR not reported due to non-numeric value for Creatinine. Reported eGFR is based on the CKD-EPI 2020 equation that does not use a race coefficient. Performed By: #### 4 8066-5 #### [facility] ([id number]) [address] [place] [address] 97768 #### TREY MEEHAN, CMP, #### [facility] ([id number]) [address], [address] [place] [address] Glucose [Mass/Vol] 103 mg/dL High 65-99 [facility] Comment on above: Performed By: #### 4 8066-5 #### [facility] ([id number]) [address] [place] [address] 25037 #### CAILINA, HA1C, CMP, 63358-8 #### [facility] ([id number]) [address], [address] [place] [address] Potassium [Moles/Vol] 3.8 mmol/L Normal 3.5-5.0 [facility] Comment on above: Performed By: #### 4 8066-5 #### [facility] ([id number]) [address] [place] [address] 33962 #### CBCA, HA1C, CMP, #### [facility] ([id number]) [address] [facility], [address] [place] [address] Protein [Mass/Vol] 5.3 g/dL Low 6.0-8.0 [facility] Comment on above: Performed By: #### 4 8066-5 #### [facility] ([id number]) [address] [place] [address] 21705 #### CBCA, HA1C, CMP, #### [facility] ([id number]) [address] [facility], [address] [place] [address] Sodium [Moles/Vol] 138 mmol/L Normal 134-146 [facility] Comment on above: Performed By: #### 4 8066-5 #### [facility] ([id number]) [address] [place] [address] 71822 #### CBCA, HA1C, CMP, #### [facility] ([id number]) [address] [facility], [address] [place] [address] Urea nitrogen [Mass/Vol] 27 mg/dL Normal 5-27 [facility] Comment on above: Performed By: #### 4 8066-5 #### [facility] ([id number]) [address] [place] [address] 28870 #### CBCA, HA1C, CMP, #### [facility] ([id number]) [address] [facility], [address] [place] [address] MAGNESIUMon 12-16-2024 Magnesium [Mass/Vol] 2.2 mg/dL Normal 1.8-2.6 [facility] Comment on above: Performed By: #### 4 8066-5 #### [facility] ([id number]) [address] [place] [address], [place] [address] #### CBCA, HA1C, CMP, 1968-7, 53715-2 #### [facility] ([id number]) [address], [address] [place] [address] CBC WITH AUTO DIFFERENTIALon 12-15-2024 BASOPHILS ABSOLUTE COUNT (10*3/UL) BY AUTOMATED COUNT 0.0 10*3/uL Normal [facility] Comment on above: Performed By: #### 1 7861-6 #### [facility] ([id number]) [address], [address] [place] [address] BASOPHILS RELATIVE PERCENT BY AUTOMATED COUNT 0.7 % Normal [facility] Comment on above: Performed By: #### 1 7861-6 #### [facility] ([id number]) [address], [address] [place] [address] CELLAVISION DIFFERENTIAL TYPE AUTOMATED DIFFERENTIAL Normal [facility] Comment on above: Performed By: #### 1 7861-6 #### [facility] ([id number]) [address], [address] [place] [address] Eosinophils (Bld) [#/Vol] 0.2 10*3/uL Normal [facility] Comment on above: Performed By: #### 1 7861-6 #### [facility] ([id number]) [address], [address] [place] [address] EOSINOPHILS RELATIVE PERCENT BY AUTOMATED COUNT 4.3 % Normal [facility] Comment on above: Performed By: #### 1 7861-6 #### [facility] ([id number]) [address], [address] [place] [address] Erythrocyte distribution width (RBC) [Ratio] 16.2 % High 11.5-15 [facility] Comment on above: Performed By: #### 1 7861-6 #### [facility] ([id number]) [address], [address] [place] [address] Hematocrit (Bld) [Volume fraction] 24.8 % Low 35-47 [facility] Comment on above: Performed By: #### 1 7861-6 #### [facility] ([id number]) [address], [address] [place] [address] Hemoglobin (Bld) [Mass/Vol] 8.5 g/dL Low 11.7-15.5 [facility] Comment on above: Performed By: #### 1 7861-6 #### [facility] ([id number]) [address], [address] [place] [address] LYMPHOCYTES ABSOLUTE COUNT (10*3/UL) BY AUTOMATED COUNT 1.1 10*3/uL Normal [facility] Comment on above: Performed By: #### 1 7861-6 #### [facility] ([id number]) [address], [address] [place] [address] LYMPHOCYTES RELATIVE PERCENT BY AUTOMATED COUNT 18.7 % Normal [facility] Comment on above: Performed By: #### 1 7861-6 #### [facility] ([id number]) [address], [address] [place] [address] MCH (RBC) [Entitic mass] 28.7 pg Normal 27-34 [facility] Comment on above: Performed By: #### 1 7861-6 #### [facility] ([id number]) [address], [address] [place] [address] MCHC (RBC) [Mass/Vol] 34.3 g/dL Normal 32-36 [facility] Comment on above: Performed By: #### 1 7861-6 #### [facility] ([id number]) [address], [address] [place] [address] MCV (RBC) [Entitic vol] 84 fL Normal 80-100 P [facility] Comment on above: Performed By: #### 1 7861-6 #### [facility] ([id number]) [address], [address] [place] [address] MONOCYTES ABSOLUTE COUNT (10*3/UL) BY AUTOMATED COUNT 0.6 10*3/uL Normal [facility] Comment on above: Performed By: #### 1 7861-6 #### [facility] ([id number]) [address], [address] [place] [address] MONOCYTES RELATIVE PERCENT BY AUTOMATED COUNT 9.6 % Normal [facility] Comment on above: Performed By: #### 1 7861-6 #### [facility] ([id number]) [address], [address] [place] [address] NEUTROPHILS ABSOLUTE COUNT BY AUTOMATED COUNT 3.8 10*3/uL Normal [facility] Comment on above: Performed By: #### 1 7861-6 #### [facility] ([id number]) [address], [address] [place] [address] NEUTROPHILS RELATIVE PERCENT BY AUTOMATED COUNT 66.7 % Normal [facility] Comment on above: Performed By: #### 1 7861-6 #### [facility] ([id number]) [address], [address] [place] [address] Platelet mean volume (Bld) [Entitic vol] 8.3 fL Normal 7-12 [facility] Comment on above: Performed By: #### 1 7861-6 #### [facility] ([id number]) [address], [address] [place] [address] Platelets (Bld) [#/Vol] 251 10*3/uL Normal 150-450 [facility] Comment on above: Performed By: #### 1 7861-6 #### [facility] ([id number]) [address], [address] [place] [address] RBC COUNT 2.96 X10E12/L Low 3.8-5.2 [facility] Comment on above: Performed By: #### 1 7861-6 #### [facility] ([id number]) [address], [address] [place] [address] WBC (Bld) [#/Vol] 5.7 10*3/uL Normal 4-11 [facility] Comment on above: Performed By: #### 1 7861-6 #### [facility] ([id number]) [address], [address] [place] [address] COMPREHENSIVE METABOLIC PANE Ton 12-15-2024 Albumin [Mass/Vol] 2.7 g/dL Low 3.2-5.3 [facility] Comment on above: Performed By: #### 4 8066-5 #### [facility] ([id number]) [address] [place] [address]208 #### CBCA, HA1C, CMP, 31-1 #### [facility] ([id number]) [address], [address] [place] [address] ALP [Catalytic activity/Vol] 58 U/L Normal 39-130 [facility] Comment on above: Performed By: #### 4 8066-5 #### [facility] ([id number]) [address] [place] [address] 41162 #### CBCA, HA1C, CMP, 04622-5 #### [facility] ([id number]) [address], [address] [place] [address] ALT [Catalytic activity/Vol] 12 U/L Normal <=31 [facility] Comment on above: Performed By: #### 4 8066-5 #### [facility] ([id number]) [address] [place] [address]240 #### CBCA, HA1C, CMP, 53691-9 #### [facility] ([id number]) [address] [facility], [address] [place] [address] Anion gap [Moles/Vol] 5 mmol/L Normal 5-15 [facility] Comment on above: Performed By: #### 4 8066-5 #### [facility] ([id number]) [address] [place] [address] #### CBCA, HA1C, CMP, 42155-7 #### [facility] ([id number]) [address] [facility], [address] [place] [address] AST [Catalytic activity/Vol] 19 U/L Normal <=41 [facility] Comment on above: Performed By: #### 4 8066-5 #### [facility] ([id number]) [address] [place] [address] 19166 #### CBCA, HA1C, CMP, 44873-2 #### [facility] ([id number]) [address] [facility], [address] [place] [address] Bilirubin [Mass/Vol] 0.4 mg/dL Normal 0.3-1.2 [facility] Comment on above: Performed By: #### 4 8066-5 #### [facility] ([id number]) [address] [place] [address] 73252 #### CBCA, HA1C, CMP, 96392-7 #### [facility] ([id number]) [address] [facility], [address] [place] [address] Calcium [Mass/Vol] 8.7 mg/dL Normal 8.5-10.5 [facility] Comment on above: Performed By: #### 4 8066-5 #### [facility] ([id number]) [address] [place] [address] 57634 #### CBCA, HA1C, CMP, #### [facility] ([id number]) [address], [address] [place] [address] Chloride [Moles/Vol] 110 mmol/L High 98-109 [facility] Comment on above: Performed By: #### 4 8066-5 #### [facility] ([id number]) [address] [place] [address] 54964 #### CBCA, HA1C, CMP, #### [facility] ([id number]) [address] [facility], [address] [place] [address] CO2 [Moles/Vol] 22 mmol/L Normal 22-32 [facility] Comment on above: Performed By: #### 4 8066-5 #### [facility] ([id number]) [address] [place] [address] 49734 #### CBCJacob, HA1C, CMP, #### [facility] ([id number]) [address] [facility], [address] [place] [address] Creatinine [Mass/Vol] 1.13 mg/dL High 0.40-1.00 [facility] Comment on above: Result Comment: METH OD TRACEABLE TO IDMS STANDARD Performed By: #### 4 8066-5 #### [facility] ([id number]) [address] [place] [address] 87627 #### CBCA, HA1C, CMP, #### [facility] ([id number]) [address] [facility], [address] [place] [address] GFR/1.73 sq M.predicted among non-blacks MDRD (S/P/Bld) [Vol rate/Area] 48 mL/min/{1.73_m2} Low >=60 [facility] Comment on above: Result Comment: eGFR not reported due to non-numeric value for Creatinine. Reported eGFR is based on the CKD-EPI 2020 equation that does not use a race coefficient. Performed By: #### 4 8066-5 #### [facility] ([id number]) [address] [place] [address] 84599 #### CBCA, HA1C, CMP, 06202-7 #### [facility] ([id number]) [address] [place] [address], [address] [place] [address] Glucose [Mass/Vol] 105 mg/dL High 65-99 [facility] Comment on above: Performed By: #### 4 8066-5 #### [facility] ([id number]) [address] [place] [address] 11882 #### CBCA, HA1C, CMP, 01937-0 #### [facility] ([id number]) [address] [place] [address], [address] [place] [address] Potassium [Moles/Vol] 4.0 mmol/L Normal 3.5-5.0 [facility] Comment on above: Performed By: #### 4 8066-5 #### [facility] ([id number]) [address] [place] [address]1322 #### CBCA, HA1C, CMP, 62594-6 #### [facility] ([id number]) [address] [place] [address], [address] [place] [address] Protein [Mass/Vol] 5.5 g/dL Low 6.0-8.0 [facility] Comment on above: Performed By: #### 4 8066-5 #### [facility] ([id number]) [address] [place] [address] 26570 #### CBCA, HA1C, CMP, #### [facility] ([id number]) [address] [place] [address], [address] [place] [address] Sodium [Moles/Vol] 137 mmol/L Normal 134-146 [facility] Comment on above: Performed By: #### 4 8066-5 #### [facility] ([id number]) [address] [place] [address] #### CBCA, HA1C, CMP, #### [facility] ([id number]) [address] [place] [address], [address] [place] [address] Urea nitrogen [Mass/Vol] 22 mg/dL Normal 5-27 [facility] Comment on above: Performed By: #### 4 8066-5 #### [facility] ([id number]) [address] [place] [address] #### CBCA, HA1C, CMP, #### [facility] ([id number]) [address] [place] [address], [address] [address] MAGNESIUMon 12-15-2024 Magnesium [Mass/Vol] 2.2 mg/dL Normal 1.8-2.6 [facility] Comment on above: Performed By: #### 4 8066-5 #### [facility] ([id number]) [address] [place] [address] #### CBCA, HA1C, CMP, #### [facility] ([id number]) [address] [place] [address], [address] [place] [address] CBC WITH AUTO DIFFERENTIALon 12-14-2024 BASOPHILS ABSOLUTE COUNT (10*3/UL) BY AUTOMATED COUNT 0.0 10*3/uL Normal [facility] Comment on above: Performed By: #### C BCA ####[facility] ([facility] [address] VIR BASOPHILS RELATIVE PERCENT BY AUTOMATED COUNT 0.6 % Normal [facility] Comment on above: Performed By: #### C BCA ####[facility] ([address] [place] [address] VIR CELLAVISION DIFFERENTIAL TYPE AUTOMATED DIFFERENTIAL Normal [facility] Comment on above: Performed By: #### C BCA ####[facility] ([address] [place] [address] VIR Eosinophils (Bld) [#/Vol] 0.1 10*3/uL Normal [facility] Comment on above: Performed By: #### C BCA ####[facility] ([address] [place] [address] VIR EOSINOPHILS RELATIVE PERCENT BY AUTOMATED COUNT 2.3 % Normal [facility] Comment on above: Performed By: #### C BCA ####[facility] ([address] [place] [address] VIR Erythrocyte distribution width (RBC) [Ratio] 16.0 % High 11.5-15 [facility] Comment on above: Performed By: #### C BCA ####[facility] ([address] [place] [address] VIR Hematocrit (Bld) [Volume fraction] 24.6 % Low 35-47 [facility] Comment on above: Performed By: #### C BCA ####[facility] ([address] [place] [address] VIR Hemoglobin (Bld) [Mass/Vol] 8.5 g/dL Low 11.7-15.5 [facility] Comment on above: Performed By: #### C BCA ####[facility] ([address] [place] [address] VIR LYMPHOCYTES ABSOLUTE COUNT (10*3/UL) BY AUTOMATED COUNT 1.0 10*3/uL Normal [facility] Comment on above: Performed By: #### C BCA ####[facility] ([address] [address] VIR LYMPHOCYTES RELATIVE PERCENT BY AUTOMATED COUNT 16.1 % Normal [facility] Comment on above: Performed By: #### C BCA ####[facility] ([address] [address] VIR MCH (RBC) [Entitic mass] 28.6 pg Normal 27-34 [facility] Comment on above: Performed By: #### C BCA ####[facility] ([address] [address] VIR MCHC (RBC) [Mass/Vol] 34.5 g/dL Normal 32-36 [facility] Comment on above: Performed By: #### C BCA ####[facility] ([address] [address] VIR MCV (RBC) [Entitic vol] 83 fL Normal 80-100 [facility] Comment on above: Performed By: #### C BCA ####[facility] ([address] [address] VIR MONOCYTES ABSOLUTE COUNT (10*3/UL) BY AUTOMATED COUNT 0.6 10*3/uL Normal [facility] Comment on above: Performed By: #### C BCA ####[facility] ([address] [address] VIR MONOCYTES RELATIVE PERCENT BY AUTOMATED COUNT 8.9 % Normal [facility] Comment on above: Performed By: #### C BCA ####[facility] ([address] [address] VIR NEUTROPHILS ABSOLUTE COUNT BY AUTOMATED COUNT 4.6 10*3/uL Normal [facility] Comment on above: Performed By: #### C BCA ####[facility] ([address] [place] [address] VIR NEUTROPHILS RELATIVE PERCENT BY AUTOMATED COUNT 72.1 % Normal [facility] Comment on above: Performed By: #### C BCA ####[facility] ([address] [place] [address] VIR Platelet mean volume (Bld) [Entitic vol] 8.0 fL Normal 7-12 [facility] Comment on above: Performed By: #### C BCA ####[facility] ([address] [place] [address] VIR Platelets (Bld) [#/Vol] 249 10*3/uL Normal 150-450 [facility] Comment on above: Performed By: #### C BCA ####[facility] ([address] [place] [address] VIR RBC COUNT 2.97 X10E12/L Low 3.8-5.2 [facility] Comment on above: Performed By: #### C BCA ####[facility] ([address] [place] [address] VIR WBC (Bld) [#/Vol] 6.4 10*3/uL Normal 4-11 [facility] Comment on above: Performed By: #### C BCA ####[facility] ([address] [place] [address] VIR COMPREHENSIVE METABOLIC PANE Ton 12-14-2024 Albumin [Mass/Vol] 3.0 g/dL Low 3.2-5.3 [facility] Comment on above: Performed By: #### 1 7861-6 #### [facility] ([id number]) [address], [address] [place] [address] ALP [Catalytic activity/Vol] 60 U/L Normal 39-130 [facility] Comment on above: Performed By: #### 1 7861-6 #### [facility] ([id number]) [address], [address] [place] [address] ALT [Catalytic activity/Vol] 11 U/L Normal <=31 [facility] Comment on above: Performed By: #### 1 7861-6 #### [facility] ([id number]) [address], [address] [place] [address] Anion gap [Moles/Vol] 8 mmol/L Normal 5-15 [facility] Comment on above: Performed By: #### 1 7861-6 #### [facility] ([id number]) [address], [address] [place] [address] AST [Catalytic activity/Vol] 20 U/L Normal <=41 [facility] Comment on above: Performed By: #### 1 7861-6 #### [facility] ([id number]) [address], [address] [place] [address] Bilirubin [Mass/Vol] 0.6 mg/dL Normal 0.3-1.2 [facility] Comment on above: Performed By: #### 1 7861-6 #### [facility] ([id number]) [address], [address] [place] [address] Calcium [Mass/Vol] 8.7 mg/dL Normal 8.5-10.5 [facility] Comment on above: Performed By: #### 1 7861-6 #### [facility] ([id number]) [address], [address] [place] [address] Chloride [Moles/Vol] 109 mmol/L Normal 98-109 [facility] Comment on above: Performed By: #### 1 7861-6 #### [facility] ([id number]) [address], [address] [place] [address] CO2 [Moles/Vol] 24 mmol/L Normal 22-32 [facility] Comment on above: Performed By: #### 1 7861-6 #### [facility] ([id number]) [address], [address] [place] [address] Creatinine [Mass/Vol] 1.21 mg/dL High 0.40-1.00 [facility] Comment on above: Result Comment: METH OD TRACEABLE TO IDMS STANDARD Performed By: #### 1 7861-6 #### [facility] ([id number]) [address], [address] [place] [address] GFR/1.73 sq M.predicted among non-blacks MDRD (S/P/Bld) [Vol rate/Area] 44 mL/min/{1.73_m2} Low >=60 [facility] Comment on above: Result Comment: eGFR not reported due to non-numeric value for Creatinine. Reported eGFR is based on the CKD-EPI 2020 equation that does not use a race coefficient. Performed By: #### 1 7861-6 #### [facility] ([id number]) [address], [address] [place] [address] Glucose [Mass/Vol] 102 mg/dL High 65-99 [facility] Comment on above: Performed By: #### 1 7861-6 #### [facility] ([id number]) [address], [address] [place] [address] Potassium [Moles/Vol] 2.8 mmol/L Low 3.5-5.0 [facility] Comment on above: Performed By: #### 1 7861-6 #### [facility] ([id number]) [address], [address] [place] [address] Protein [Mass/Vol] 5.6 g/dL Low 6.0-8.0 [facility] Comment on above: Performed By: #### 1 7861-6 #### [facility] ([id number]) [address], [address] [place] [address] Sodium [Moles/Vol] 141 mmol/L Normal 134-146 [facility] Comment on above: Performed By: #### 1 7861-6 #### [facility] ([id number]) [address], [address] [place] [address] Urea nitrogen [Mass/Vol] 18 mg/dL Normal 5-27 [facility] Comment on above: Performed By: #### 1 7861-6 #### [facility] ([id number]) [address], [address] [place] [address] MAGNESIUMon 12-14-2024 Magnesium [Mass/Vol] 2.2 mg/dL Normal 1.8-2.6 [facility] Comment on above: Performed By: #### 1 7861-6 #### [facility] ([id number]) [address], [address] [place] [address] POTASSIUMon 12-14-2024 Potassium [Moles/Vol] 4.7 mmol/L Normal 3.5-5.0 [facility] Comment on above: Performed By: #### 1 7861-6 #### [facility] ([id number]) [address], [address] [place] [address] CBC WITH AUTO DIFFERENTIALon 12-13-2024 BASOPHILS ABSOLUTE COUNT (10*3/UL) BY AUTOMATED COUNT 0.1 10*3/uL Normal [facility] Comment on above: Performed By: #### C BCA ####[facility] ([facility])[address] [place] [address] VIR BASOPHILS RELATIVE PERCENT BY AUTOMATED COUNT 0.7 % Normal [facility] Comment on above: Performed By: #### C BCA ####[facility] ([facility])[address] [place] [address] VIR CELLAVISION DIFFERENTIAL TYPE AUTOMATED DIFFERENTIAL Normal [facility] Comment on above: Performed By: #### C BCA ####[facility] ([address] [place] [address] VIR Eosinophils (Bld) [#/Vol] 0.0 10*3/uL Normal [facility] Comment on above: Performed By: #### C BCA ####[facility] ([address] [place] [address] VIR EOSINOPHILS RELATIVE PERCENT BY AUTOMATED COUNT 0.2 % Normal [facility] Comment on above: Performed By: #### C BCA ####[facility] ([address] [place] [address] VIR Erythrocyte distribution width (RBC) [Ratio] 15.9 % High 11.5-15 [facility] Comment on above: Performed By: #### C BCA ####[facility] ([address] [place] [address] VIR Hematocrit (Bld) [Volume fraction] 26.7 % Low 35-47 [facility] Comment on above: Performed By: #### C BCA ####[facility] ([address] [place] [address] VIR Hemoglobin (Bld) [Mass/Vol] 9.0 g/dL Low 11.7-15.5 [facility] Comment on above: Performed By: #### C BCA ####[facility] ([address] [place] [address] VIR LYMPHOCYTES ABSOLUTE COUNT (10*3/UL) BY AUTOMATED COUNT 0.7 10*3/uL Normal [facility] Comment on above: Performed By: #### C BCA ####[facility] ([address] [place] [address] VIR LYMPHOCYTES RELATIVE PERCENT BY AUTOMATED COUNT 9.5 % Normal [facility] Comment on above: Performed By: #### C BCA ####[facility] ([address] [place] [address] VIR MCH (RBC) [Entitic mass] 28.4 pg Normal 27-34 [facility] Comment on above: Performed By: #### C BCA ####[facility] ([facility])[address] [place], [place] [address] [address] VIR MCHC (RBC) [Mass/Vol] 33.5 g/dL Normal 32-36 [facility] Comment on above: Performed By: #### C BCA ####[facility] ([facility])[address] [place], [place] [address] [address] VIR MCV (RBC) [Entitic vol] 85 fL Normal 80-100 [facility] Comment on above: Performed By: #### C BCA ####[facility] ([address] [place] [address] VIR MONOCYTES ABSOLUTE COUNT (10*3/UL) BY AUTOMATED COUNT 0.5 10*3/uL Normal [facility] Comment on above: Performed By: #### C BCA ####[facility] ([address] [place] [address] VIR MONOCYTES RELATIVE PERCENT BY AUTOMATED COUNT 7.0 % Normal [facility] Comment on above: Performed By: #### C BCA ####[facility] ([address] [place] [address] VIR NEUTROPHILS ABSOLUTE COUNT BY AUTOMATED COUNT 6.3 10*3/uL Normal [facility] Comment on above: Performed By: #### C BCA ####[facility] ([address] [place] [address] VIR NEUTROPHILS RELATIVE PERCENT BY AUTOMATED COUNT 82.6 % Normal [facility] Comment on above: Performed By: #### C BCA ####[facility] ([address] [place] [address] VIR Platelet mean volume (Bld) [Entitic vol] 8.0 fL Normal 7-12 [facility] Comment on above: Performed By: #### C BCA ####[facility] ([place] [address] [place] [address] VIR Platelets (Bld) [#/Vol] 237 10*3/uL Normal 150-450 [facility] Comment on above: Performed By: #### C BCA ####[facility] ([address] [place] [address] VIR RBC COUNT 3.15 X10E12/L Low 3.8-5.2 [facility] Comment on above: Performed By: #### C BCA ####[facility] ([address] [place] [address] VIR WBC (Bld) [#/Vol] 7.7 10*3/uL Normal 4-11 [facility] Comment on above: Performed By: #### C BCA ####[facility] ([address] [place] [address] VIR COMPREHENSIVE METABOLIC PANE Ton 12-13-2024 Albumin [Mass/Vol] 3.4 g/dL Normal 3.2-5.3 [facility] Comment on above: Performed By: #### C MP ####[facility] ([address] [place] [address] VIR ALP [Catalytic activity/Vol] 67 U/L Normal 39-130 [facility] Comment on above: Performed By: #### C MP ####[facility] ([address] [place] [address] VIR ALT [Catalytic activity/Vol] 14 U/L Normal <=31 [facility] Comment on above: Performed By: #### C MP ####[facility] ([address] [place] [address] VIR Anion gap [Moles/Vol] 10 mmol/L Normal 5-15 [facility] Comment on above: Performed By: #### C MP ####[facility] ([address] [place] [address] VIR AST [Catalytic activity/Vol] 23 U/L Normal <=41 [facility] Comment on above: Performed By: #### C MP ####[facility] ([address] [place] [address] VIR Bilirubin [Mass/Vol] 0.6 mg/dL Normal 0.3-1.2 [facility] Comment on above: Performed By: #### C MP ####[facility] ([address] [place] [address] VIR Calcium [Mass/Vol] 8.8 mg/dL Normal 8.5-10.5 [facility] Comment on above: Performed By: #### C MP ####[facility] ([address] [place] [address] VIR Chloride [Moles/Vol] 107 mmol/L Normal 98-109 [facility] Comment on above: Performed By: #### C MP ####[facility] ([address] [place] [address] VIR CO2 [Moles/Vol] 23 mmol/L Normal 22-32 [facility] Comment on above: Performed By: #### C MP ####[facility] ([address] [place] [address] VIR Creatinine [Mass/Vol] 1.45 mg/dL High 0.40-1.00 [facility] Comment on above: Result Comment: METH OD TRACEABLE TO IDMS STANDARD Performed By: #### C MP ####[facility] ([address] [place] [address] VIR GFR/1.73 sq M.predicted among non-blacks MDRD (S/P/Bld) [Vol rate/Area] 35 mL/min/{1.73_m2} Low >=60 [facility] Comment on above: Result Comment: eGFR not reported due to non-numeric value for Creatinine. Reported eGFR is based on the CKD-EPI 2020 equation that does not use a race coefficient. Performed By: #### C MP ####[facility] ([address] [place] [address] VIR Glucose [Mass/Vol] 98 mg/dL Normal 65-99 [facility] Comment on above: Performed By: #### C MP ####[facility] ([address] [place] [address] VIR Potassium [Moles/Vol] 3.1 mmol/L Low 3.5-5.0 [facility] Comment on above: Performed By: #### C MP ####[facility] ([address] [place] [address] VIR Protein [Mass/Vol] 6.4 g/dL Normal 6.0-8.0 [facility] Comment on above: Performed By: #### C MP ####[facility] ([address] [place] [address] VIR Sodium [Moles/Vol] 140 mmol/L Normal 134-146 [facility] Comment on above: Performed By: #### C MP ####[facility] ([address] [place] [address] VIR Urea nitrogen [Mass/Vol] 19 mg/dL Normal 5-27 [facility] Comment on above: Performed By: #### C MP ####[facility] ([address] [place] [address] VIR FERRITINon 12-13-2024 Ferritin [Mass/Vol] 32 ng/mL Normal 11-307 [facility] Comment on above: Performed By: #### 1 7861-6 #### [facility] ([id number]) [address], [address] [place] [address] FOLATEon 12-13-2024 FOLIC ACID 11.0 ng/mL Normal >5.8 [facility] Comment on above: Performed By: #### 1 7861-6 #### [facility] ([id number]) [address], [address] [place] [address] IRON AND TIBCon 12-13-2024 Iron [Mass/Vol] 24 ug/dL Low 50-170 [facility] Comment on above: Performed By: #### 1 7861-6 #### [facility] ([id number]) [address], [address] [place] [address] IRON BINDING 294 ug/dL Normal 250-425 [facility] Comment on above: Performed By: #### 1 7861-6 #### [facility] ([id number]) [address], [address] [place] [address] IRON SATURATION 8 % SATURATION Low 15-50 [facility] Comment on above: Performed By: #### 1 7861-6 #### [facility] ([id number]) [address], [address] [place] [address] Transferrin [Mass/Vol] 210 mg/dL Normal 168-336 [facility] Comment on above: Performed By: #### 1 7861-6 #### [facility] ([id number]) [address], [address] [place] [address] MAGNESIUMon 12-13-2024 Magnesium [Mass/Vol] 2.2 mg/dL Normal 1.8-2.6 [facility] Comment on above: Performed By: #### M G ####[facility] ([facility])[address] [place] [address] VIR POTASSIUMon 12-13-2024 Potassium [Moles/Vol] 3.1 mmol/L Low 3.5-5.0 [facility] Comment on above: Performed By: #### 1 7861-6 #### [facility] ([id number]) [address], [address] [place] [address] TROP I, HIGH SENSITIVITY 1 H OURon 12-13-2024 TROPONIN I, HIGH SENSITIVITY 22 ng/L High <16 [facility] Comment on above: Order Comment: Waldo tions of hs-Troponin may be due to causesother than myocardial ischemia.Recommend serial hs-Troponin testing be performed.For the initial evaluation and management of chestpain patients, refer to the algorithms linked below.Emergency Patient:[email or web address] Performed By: #### T NIHS1 ####[facility] ([facility])[address] [place] [address] VIR TROPONIN I, HIGH SENSITIVITY 0 HOURon 12-13-2024 TROPONIN I, HIGH SENSITIVITY 23 ng/L High <16 [facility] Comment on above: Performed By: #### 4 8066-5 #### [facility] ([id number]) [address] [place] [address], [place] [address] #### CBCA, HA1C, CMP, 1968-, 14443-7 #### [facility] ([id number]) [address] [place] [address] VITAMIN B12on 12-13-2024 Cobalamin (Vitamin B12) [Mass/Vol] 144 pg/mL Low 180-914 [facility] Comment on above: Performed By: #### 1 7861-6 #### [facility] ([id number]) [address], [address] [place] [address] VITAMIN D 25 HYDROXYon 04-29 -2025 VITAMIN D 25 HYD TOT 59.5 ng/mL Normal 30.0-100.0 [facility] Comment on above: Order Comment: Vitam in D status 25 [place] Vitamin D Deficienc y <20 ng/mLInsufficiency 20-29 ng/mLSufficiency 30-100 ng/mLToxicity >100 ng/mLNOTE: A pediatric reference range has not been established by the shutdown planner of this kit. The [place] [employer] recommends a Vitamin D level of = or >20ng/mL in infants and children. Performed By: #### 1 7861-6 #### [facility] ([id number]) [address], [address] [place] [address] XR CHEST 1 VWon 12-13-2024 XR CHEST 1 VW XR CHEST 1 VW History: dyspnea Exam/Technique: AP view of the chest. XR CHEST 1 VW Comparison: 12/08/2024 Findings: Heart and mediastinum are stable from recent exam. Lungs are hyperinflated with chronic blunting of the costophrenic angles. No organized airspace disease, indication of congestion or acute pulmonary pathology. IMPRESSION: * Hyperinflated lungs similar to previous without evidence of acute pulmonary pathology. Finalized by Volodymyr Gudino DO on 12/13/2024 9:21 PM Normal [facility] CBC WITH AUTO DIFFERENTIALon 12-12-2024 BASOPHILS ABSOLUTE COUNT (10*3/UL) BY AUTOMATED COUNT 0.0 10*3/uL Normal [facility] Comment on above: Performed By: #### C BCA ####[facility] ([facility])[address] [place] [address] VIR BASOPHILS RELATIVE PERCENT BY AUTOMATED COUNT 0.3 % Normal [facility] Comment on above: Performed By: #### C BCA ####[facility] ([facility])[address] [place] [address] VIR CELLAVISION DIFFERENTIAL TYPE AUTOMATED DIFFERENTIAL Normal [facility] Comment on above: Performed By: #### C BCA ####[facility] ([address] [address] VIR Eosinophils (Bld) [#/Vol] 0.0 10*3/uL Normal [facility] Comment on above: Performed By: #### C BCA ####[facility] ([address] [address] VIR EOSINOPHILS RELATIVE PERCENT BY AUTOMATED COUNT 0.2 % Normal [facility] Comment on above: Performed By: #### C BCA ####[facility] ([address] [address] VIR Erythrocyte distribution width (RBC) [Ratio] 15.7 % High 11.5-15 [facility] Comment on above: Performed By: #### C BCA ####[facility] ([address] [address] VIR Hematocrit (Bld) [Volume fraction] 25.7 % Low 35-47 [facility] Comment on above: Performed By: #### C BCA ####[facility] ([address] [address] VIR Hemoglobin (Bld) [Mass/Vol] 8.7 g/dL Low 11.7-15.5 [facility] Comment on above: Performed By: #### C BCA ####[facility] ([address] [address] VIR LYMPHOCYTES ABSOLUTE COUNT (10*3/UL) BY AUTOMATED COUNT 0.5 10*3/uL Normal [facility] Comment on above: Performed By: #### C BCA ####[facility] ([address] [address] VIR LYMPHOCYTES RELATIVE PERCENT BY AUTOMATED COUNT 6.5 % Normal [facility] Comment on above: Performed By: #### C BCA ####[facility] ([address] [place] [address] VIR MCH (RBC) [Entitic mass] 28.4 pg Normal 27-34 [facility] Comment on above: Performed By: #### C BCA ####[facility] ([address] [place] [address] VIR MCHC (RBC) [Mass/Vol] 33.8 g/dL Normal 32-36 [facility] Comment on above: Performed By: #### C BCA ####[facility] ([address] [place] [address] VIR MCV (RBC) [Entitic vol] 84 fL Normal 80-100 [facility] Comment on above: Performed By: #### C BCA ####[facility] ([address] [place] [address] VIR MONOCYTES ABSOLUTE COUNT (10*3/UL) BY AUTOMATED COUNT 0.3 10*3/uL Normal [facility] Comment on above: Performed By: #### C BCA ####[facility] ([address] [place] [address] VIR MONOCYTES RELATIVE PERCENT BY AUTOMATED COUNT 4.3 % Normal [facility] Comment on above: Performed By: #### C BCA ####[facility] ([address] [place] [address] VIR NEUTROPHILS ABSOLUTE COUNT BY AUTOMATED COUNT 7.0 10*3/uL Normal [facility] Comment on above: Performed By: #### C BCA ####[facility] ([address] [place] [address] VIR NEUTROPHILS RELATIVE PERCENT BY AUTOMATED COUNT 88.7 % Normal [facility] Comment on above: Performed By: #### C BCA ####[facility] ([address] [place] [address] VIR Platelet mean volume (Bld) [Entitic vol] 8.6 fL Normal 7-12 [facility] Comment on above: Performed By: #### C BCA ####[facility] ([address] [place] [address] VIR Platelets (Bld) [#/Vol] 278 10*3/uL Normal 150-450 [facility] Comment on above: Performed By: #### C BCA ####[facility] ([address] [place] [address] VIR RBC COUNT 3.05 X10E12/L Low 3.8-5.2 [facility] Comment on above: Performed By: #### C BCA ####[facility] ([address] [place] [address] VIR WBC (Bld) [#/Vol] 7.9 10*3/uL Normal 4-11 [facility] Comment on above: Performed By: #### C BCA ####[facility] ([address] [place] [address] VIR CK TOTALon 12-12-2024 CPK 68 U/L Normal 24-170 [facility] Comment on above: Performed By: #### C PK ####[facility] ([address] [place] [address] VIR COMPREHENSIVE METABOLIC PANE Ton 12-12-2024 Albumin [Mass/Vol] 3.4 g/dL Normal 3.2-5.3 [facility] Comment on above: Performed By: #### C MP ####[facility] ([address] [place] [address] VIR ALP [Catalytic activity/Vol] 66 U/L Normal 39-130 [facility] Comment on above: Performed By: #### C MP ####[facility] ([address] [address] VIR ALT [Catalytic activity/Vol] 13 U/L Normal <=31 [facility] Comment on above: Performed By: #### C MP ####[facility] ([place] [address] [place] [address] VIR Anion gap [Moles/Vol] 9 mmol/L Normal 5-15 [facility] Comment on above: Performed By: #### C MP ####[facility] ([place] [address] [place] [address] VIR AST [Catalytic activity/Vol] 24 U/L Normal <=41 [facility] Comment on above: Performed By: #### C MP ####[facility] ([place] [address] [place] [address] VIR Bilirubin [Mass/Vol] 0.7 mg/dL Normal 0.3-1.2 [facility] Comment on above: Performed By: #### C MP ####[facility] ([place] [address] [place] [address] VIR Calcium [Mass/Vol] 9.0 mg/dL Normal 8.5-10.5 [facility] Comment on above: Performed By: #### C MP ####[facility] ([place] [address] [place] [address] VIR Chloride [Moles/Vol] 106 mmol/L Normal 98-109 [facility] Comment on above: Performed By: #### C MP ####[facility] ([place] [address] [place] [address] VIR CO2 [Moles/Vol] 23 mmol/L Normal 22-32 [facility] Comment on above: Performed By: #### C MP ####[facility] ([place] [address] [place] [address] VIR Creatinine [Mass/Vol] 1.39 mg/dL High 0.40-1.00 [facility] Comment on above: Result Comment: METH OD TRACEABLE TO IDMS STANDARD Performed By: #### C MP ####[facility] ([address] [address] VIR GFR/1.73 sq M.predicted among non-blacks MDRD (S/P/Bld) [Vol rate/Area] 37 mL/min/{1.73_m2} Low >=60 [facility] Comment on above: Result Comment: eGFR not reported due to non-numeric value for Creatinine. Reported eGFR is based on the CKD-EPI 2020 equation that does not use a race coefficient. Performed By: #### C MP ####[facility] ([address] [address] VIR Glucose [Mass/Vol] 113 mg/dL High 65-99 [facility] Comment on above: Performed By: #### C MP ####[facility] ([address] [address] VIR Potassium [Moles/Vol] 3.3 mmol/L Low 3.5-5.0 [facility] Comment on above: Performed By: #### C MP ####[facility] ([address] [address] VIR Protein [Mass/Vol] 6.1 g/dL Normal 6.0-8.0 [facility] Comment on above: Performed By: #### C MP ####[facility] ([address] [address] VIR Sodium [Moles/Vol] 138 mmol/L Normal 134-146 [facility] Comment on above: Performed By: #### C MP ####[facility] ([address] [place] [address] VIR Urea nitrogen [Mass/Vol] 18 mg/dL Normal 5-27 [facility] Comment on above: Performed By: #### C MP ####[facility] ([facility])[address] [place] [address].[place] [address] BRAIN WO CONTon 5 CT BRAIN WO CONT CT BRAIN WO CONT STUDY: CT HEAD WITHOUT CONTRAST CLINICAL HISTORY: fall Head trauma COMPARISON: January 14, 2024 Procedure: Multi-detector CT performed through the brain without IV contrast. The lack of IV contrast limits evaluation for acute infarct, mass, infectious process,or demyelinating disease.Automated exposure control was utilized. Findings: There is no intracranial hemorrhage, extra-axial fluid collection, mass effect, or hydrocephalus. Barba-white matter differentiation is appropriate. Infarcts and masses may be occult on CT, but grossly no acute infarct identified There is no midline shift. IMPRESSION: * No acute intracranial findings. Consider brain MRI if you suspect occult process. All CT scans at this facility use dose modulation, iterative reconstruction, and/or weight based dosing when appropriate to reduce radiation dose to as low as reasonably achievable. Finalized by Ted Alexander MD on 12/12/2024 1:38 PM Normal [facility] MYOGLOBIN, SERUMon 5 SERUM MYOGLOBIN 101.3 ng/mL High 14.3-65.8 [facility] Comment on above: Performed By: #### M YOG ####[facility] ([facility])[address] [place] [address].[place] [address] VIR TROP I, HIGH SENSITIVITY 1 H OURon 12-12-2024 TROPONIN I, HIGH SENSITIVITY 45 ng/L High <16 [facility] Comment on above: Order Comment: Waldo tions of hs-Troponin may be due to causesother than myocardial ischemia.Recommend serial hs-Troponin testing be performed.For the initial evaluation and management of chestpain patients, refer to the algorithms linked below.Emergency Patient:[email or web address] Performed By: #### T NIHS1 ####[facility] ([facility])[address] [place], [place] [address] [address] VIR BASIC METABOLIC PANLon 12-09 Anion gap [Moles/Vol] 6 mmol/L Normal 5-15 [facility] Comment on above: Performed By: #### C BCA, 44630-6, BMP, 45427-3 ####[facility] ([id number])[address] [place] [address] Calcium [Mass/Vol] 8.4 mg/dL Low 8.5-10.5 [facility] Comment on above: Performed By: #### C BCA, 05994-3, BMP, 89589-5 ####[facility] ([id number])[address] [place] [address] Chloride [Moles/Vol] 108 mmol/L Normal 98-109 [facility] Comment on above: Performed By: #### C BCA, 40850-0, BMP, 44707-8 ####[facility] ([id number])[address] [place] [address] CO2 [Moles/Vol] 24 mmol/L Normal 22-32 [facility] Comment on above: Performed By: #### C BCA, 31324-7, BMP, 51499-9 ####[facility] ([id number])[address] [place] [address] Creatinine [Mass/Vol] 1.25 mg/dL High 0.40-1.00 [facility] Comment on above: Result Comment: METH OD TRACEABLE TO IDMS STANDARD Performed By: #### C BCA, 23232-3, BMP, 76188-1 ####[facility] ([id number])[address] [place] [address] GFR/1.73 sq M.predicted among non-blacks MDRD (S/P/Bld) [Vol rate/Area] 42 mL/min/{1.73_m2} Low >59 [facility] Comment on above: Result Comment: Reported eGFR is based on the CKD-EPI 2020 equation that does not use a race coefficient. Performed By: #### C MIRTA, 32523-0, BMP, 43629-0 ####[facility] ([id number])[address] [place] [address] Glucose [Mass/Vol] 134 mg/dL High 65-99 [facility] Comment on above: Performed By: #### C MIRTA, 59052-5, DURAN, 45648-3 ####[facility] ([id number])[address] [place] [address] Potassium [Moles/Vol] 3.5 mmol/L Normal 3.5-5.0 [facility] Comment on above: Performed By: #### Lawrence KIRBY, 29734-8, BMP, 63041-2 ####[facility] ([id number])[address] [place] [address] Sodium [Moles/Vol] 138 mmol/L Normal 134-146 [facility] Comment on above: Performed By: #### Lawrence KIRBY, 52223-4, BMP, 17365-8 ####[facility] ([id number])[address] [place] [address] Urea nitrogen [Mass/Vol] 19 mg/dL Normal 5-27 [facility] Comment on above: Performed By: #### C MIRTA, 46409-3, BMP, 66152-3 ####[facility] ([id number])[address] [place] [address] CBC AND AUTO DIFFon 25-20 25 ABSOLUTE BASOPHIL 0.0 X10E9/L Normal 0.0-0.2 [facility] Comment on above: Performed By: #### Lawrence KIRBY, 88384-8, BMP, 02840-6 ####[facility] ([id number])[address] [place] [address] ABSOLUTE NEUTROPHIL 4.4 X10E9/L Normal 1.5-6.6 [facility] Comment on above: Performed By: #### Lawrence KIRBY, 29169-6, BMP, 25295-3 ####[facility] ([id number])[address] [place] [address] Basophils/100 WBC (Bld) 0.8 % Normal [facility] Comment on above: Performed By: #### Lawrence KIRBY, 32081-8, BMP, 07845-8 ####[facility] ([id number])[address] [place] [address] Eosinophils (Bld) [#/Vol] 0.1 10*3/uL Normal 0.0-0.4 [facility] Comment on above: Performed By: #### Lawrence KIRBY, 48850-3, BMP, 39404-5 ####[facility] ([id number])[address] [place] [address] Eosinophils/100 WBC (Bld) 1.3 % Normal [facility] Comment on above: Performed By: #### Lawrence KIRBY, 54649-0, BMP, 17561-2 ####[facility] ([id number])[address] [place] [address] Erythrocyte distribution width (RBC) [Ratio] 16.0 % High 11.5-15.0 [facility] Comment on above: Performed By: #### Lawrence KIRBY, 23104-7, BMP, 25195-3 ####[facility] ([id number])[address] [place] [address] Hematocrit (Bld) [Volume fraction] 24.7 % Low 35-47 [facility] Comment on above: Performed By: #### Lawrence KIRBY, 77112-2, BMP, 02215-2 ####[facility] ([id number])[address] [place] [address] Hemoglobin (Bld) [Mass/Vol] 8.3 g/dL Low 11.7-15.5 [facility] Comment on above: Performed By: #### C MIRTA, 97731-3, BMP, 62719-6 ####[facility] ([id number])[address] [place] [address] Lymphocytes (Bld) [#/Vol] 0.5 10*3/uL Low 1.0-3.5 [facility] Comment on above: Performed By: #### C MIRTA, 81731-2, BMP, 31379-4 ####[facility] ([id number])[address] [place] [address] Lymphocytes/100 WBC (Bld) 9.1 % Normal [facility] Comment on above: Performed By: #### C MIRTA, 96696-9, BMP, 62237-4 ####[facility] ([id number])[address] [place] [address] MCH (RBC) [Entitic mass] 28.7 pg Normal 27-34 [facility] Comment on above: Performed By: #### C MIRTA, 73990-3, BMP, 84656-2 ####[facility] ([id number])[address] [place] [address] MCHC (RBC) [Mass/Vol] 33.6 g/dL Normal 32-36 [facility] Comment on above: Performed By: #### C MIRTA, 45624-8, BMP, 36729-5 ####[facility] ([id number])[address] [place] [address] MCV (RBC) [Entitic vol] 86 fL Normal 80-100 [facility] Comment on above: Performed By: #### C BCA, 10023-9, BMP, 52351-8 ####[facility] ([id number])[address] [place] [address] Monocytes (Bld) [#/Vol] 0.4 10*3/uL Normal 0-0.9 [facility] Comment on above: Performed By: #### Lawrence KIRBY, 59624-8, BMP, 19346-5 ####[facility] ([id number])[address] [place] [address] Monocytes/100 WBC (Bld) 8.1 % Normal [facility] Comment on above: Performed By: #### Lawrence KIRBY, 46361-1, BMP, 99099-5 ####[facility] ([id number])[address] [place] [address] Neutrophils/100 WBC (Bld) 80.7 % Normal [facility] Comment on above: Performed By: #### Lawrence KIRBY, 76396-2, BMP, 82096-4 ####[facility] ([id number])[address] [place] [address]88 Platelet mean volume (Bld) [Entitic vol] 8.5 fL Normal 7-12 [facility] Comment on above: Performed By: #### Lawrence KIRBY, 05940-0, BMP, 95693-1 ####[facility] ([id number])[address] [place] [address]86 Platelets (Bld) [#/Vol] 217 10*3/uL Normal 150-450 [facility] Comment on above: Performed By: #### Lawrence KIRBY, 03400-0, BMP, 95966-5 ####[facility] ([id number])[address] [place] [address]676 RBC COUNT 2.89 X10E12/L Low 3.80-5.20 [facility] Comment on above: Performed By: #### C MITRA, 36970-4, BMP, 96610-0 ####[facility] ([id number])[address] [place] [address]15 WBC (Bld) [#/Vol] 5.5 10*3/uL Normal 4.0-11.0 [facility] Comment on above: Performed By: #### C MIRTA, 87199-7, [facility], 66639-1 ####[facility] ([id number])[address] [place] [address] CTA CHESTon 12-09-[address] CT Pulmonary Angiogram Date:12/09/2024 History:Dyspnea elevated d-dimer Procedure: Multidetector CT Pulmonary Angiogram performed including 3-D reconstructions with contrast displayed on a PACS workstation and reviewed by the radiologist. Automatic exposure control (AEC) was utilized. Comparison:06/29/2024 Contrast:100 mL of Omnipaque 350 administered intravenously. Findings: Nodular groundglass opacities in the right lung are unchanged. The mediastinum and bessy show no acute changes. No filling defects identified within first or second order branches of the pulmonary arteries. Thoracic aorta postoperative changes again noted. Impression: 1. No CT evidence for Pulmonary embolus. 2. Stable nodular groundglass opacities in the right lung. Continued follow-up is recommended. All CT scans at this facility use dose modulation, iterative reconstruction, and/or weight based dosing when appropriate to reduce radiation dose to as low as reasonably achievable. Finalized by Lakhwinder Mckeon MD on 12/09/2024 12:28 PM Normal [facility] Natriuretic peptide B [Mass/ Vol]on 12-09-2024 Natriuretic peptide B (Bld) [Mass/Vol] 400 pg/mL High <100.0 [facility] Comment on above: Performed By: #### C MIRTA, 54973-3, BMP, 69441-7 ####[facility] ([id number])[address] [place] [address]277 Troponin I.cardiac High sens itivity method [Mass/Vol]on 12-09-2024 1 HOUR TROP I, HIGH SENSITIVITY 13 ng/L Normal <16 [facility] Comment on above: Performed By: #### 8 9579-7 ####[facility] ([id number])[address] [place] [address]71 TROPONIN I, HIGH SENSITIVITY 12 ng/L Normal <16 [facility] Comment on above: Performed By: #### C BCA, 98604-7, BMP, 21938-5 ####[facility] ([id number])[address] [place] [address] 24709 XR CHEST 2 VWSon 12-09-2024 XR CHEST 2 VWS XR CHEST 2 VWS Chest 2 views History: Dyspnea, unspecified type Comparison: 12/21/2023 Findings: Chest 2 views. Stable cardiomediastinal silhouette. 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 No new focal opacity, effusion or pneumothorax. Impression: No evident acute cardiopulmonary process. Finalized by Juan Carlos Samson MD on 12/09/2024 8:55 AM Normal [facility] BILIRUBIN,DIRECTon Bilirubin.direct [Mass/Vol] 0.1 mg/dL Normal 0.0-0.4 [facility] Comment on above: Performed By: #### 4 8066-5 #### [facility] ([id number]) [address] [place] [address] #### CBCA, HA1C, CMP, 1968-7, 97656-9 #### [facility] ([id number]) [address] [facility] [facility], [address] [place] [address] CBC AND AUTO DIFFon 12-09-19 25 ABSOLUTE BASOPHIL 0.1 X10E9/L Normal 0.0-0.2 [facility] Comment on above: Performed By: #### 4 8066-5 #### [facility] ([id number]) [address] [place] [address] #### CBCA, HA1C, CMP, #### [facility] ([id number]) [address] [place] [address], [address] [place] [address] ABSOLUTE NEUTROPHIL 4.5 X10E9/L Normal 1.5-6.6 [facility] Comment on above: Performed By: #### 4 8066-5 #### [facility] ([id number]) [address] [place] [address] #### CBCA, HA1C, CMP, #### [facility] ([id number]) [address] [place] [address], [address] [address] Basophils/100 WBC (Bld) 1.2 % Normal [facility] Comment on above: Performed By: #### 4 8066-5 #### [facility] ([id number]) [address] [place] [address] #### CBCA, HA1C, CMP, 04115-6 #### [facility] ([id number]) [address] [place] [address], [address] [place] [address] Eosinophils (Bld) [#/Vol] 0.1 10*3/uL Normal 0.0-0.4 [facility] Comment on above: Performed By: #### 4 8066-5 #### [facility] ([id number]) [address] [place] [address] #### CBCA, HA1C, CMP, 12153-7 #### [facility] ([id number]) [address] [place] [address], [address] [place] [address] Eosinophils/100 WBC (Bld) 1.9 % Normal [facility] Comment on above: Performed By: #### 4 8066-5 #### [facility] ([id number]) [address] [place] [address] #### CBCA, HA1C, CMP, 28068-3 #### [facility] ([id number]) [address] [place] [address] Erythrocyte distribution width (RBC) [Ratio] 16.3 % High 11.5-15.0 [facility] Comment on above: Performed By: #### 4 8066-5 #### [facility] ([id number]) [address] [place] [address]282 #### CBCA, HA1C, CMP, 28191-7 #### [facility] ([id number]) [address], [address] [place] [address] Hematocrit (Bld) [Volume fraction] 28.6 % Low 35-47 [facility] Comment on above: Performed By: #### 4 8066-5 #### [facility] ([id number]) [address] [place] [address] #### SHEFALI, HA1C, CMP, 91479-5 #### [facility] ([id number]) [address] [facility], [address] [place] [address] Hemoglobin (Bld) [Mass/Vol] 9.5 g/dL Low 11.7-15.5 [facility] Comment on above: Performed By: #### 4 8066-5 #### [facility] ([id number]) [address] [place] [address] 68054 #### CBCA, HA1C, CMP, 97311-7 #### [facility] ([id number]) [address] [facility], [address] [place] [address] Lymphocytes (Bld) [#/Vol] 0.8 10*3/uL Low 1.0-3.5 [facility] Comment on above: Performed By: #### 4 8066-5 #### [facility] ([id number]) [address] [place] [address]305 #### CBCA, HA1C, CMP, #### [facility] ([id number]) [address], [address] [place] [address] Lymphocytes/100 WBC (Bld) 13.2 % Normal [facility] Comment on above: Performed By: #### 4 8066-5 #### [facility] ([id number]) [address] [place] [address] 98682 #### CBCA, HA1C, CMP, #### [facility] ([id number]) [address], [address] [place] [address] MCH (RBC) [Entitic mass] 28.1 pg Normal 27-34 [facility] Comment on above: Performed By: #### 4 8066-5 #### [facility] ([id number]) [address] [place] [address] 79762 #### CBCA, HA1C, CMP, #### [facility] ([id number]) [address], [address] [place] [address] MCHC (RBC) [Mass/Vol] 33.3 g/dL Normal 32-36 [facility] Comment on above: Performed By: #### 4 8066-5 #### [facility] ([id number]) [address] [place] [address]277 #### CBCA, HA1C, CMP, #### [facility] ([id number]) [address], [address] [place] [address] MCV (RBC) [Entitic vol] 84 fL Normal 80-100 [facility] Comment on above: Performed By: #### 4 8066-5 #### [facility] ([id number]) [address] [place] [address]103 #### CBCA, HA1C, CMP, #### [facility] ([id number]) [address], [address] [place] [address] Monocytes (Bld) [#/Vol] 0.5 10*3/uL Normal 0-0.9 [facility] Comment on above: Performed By: #### 4 8066-5 #### [facility] ([id number]) [address] [place] [address] 75793 #### CBCA, HA1C, CMP, #### [facility] ([id number]) [address], [address] [place] [address] Monocytes/100 WBC (Bld) 7.6 % Normal P [facility] Comment on above: Performed By: #### 4 8066-5 #### [facility] ([id number]) [address] [place] [address]361 #### CBCA, HA1C, CMP, #### [facility] ([id number]) [address], [address] [place] [address] Neutrophils/100 WBC (Bld) 76.1 % Normal [facility] Comment on above: Performed By: #### 4 8066-5 #### [facility] ([id number]) [address] [place] [address]996 #### CBCA, HA1C, CMP, #### [facility] ([id number]) [address], [address] [place] [address] Platelet mean volume (Bld) [Entitic vol] 8.6 fL Normal 7-12 [facility] Comment on above: Performed By: #### 4 8066-5 #### [facility] ([id number]) [address] [place] [address] 39650 #### CBCA, HA1C, CMP, #### [facility] ([id number]) [address] [facility] [place] [address] Platelets (Bld) [#/Vol] 247 10*3/uL Normal 150-450 [facility] Comment on above: Performed By: #### 4 8066-5 #### [facility] ([id number]) [address] [place] [address] 69049 #### CBCA, HA1C, CMP, #### [facility] ([id number]) [address] [facility] [place] [address] RBC COUNT 3.39 X10E12/L Low 3.80-5.20 [facility] Comment on above: Performed By: #### 4 8066-5 #### [facility] ([id number]) [address] [place] [id number] #### CBCA, HA1C, CMP, #### [facility] ([id number]) [address] [facility], [address] [place] [address] WBC (Bld) [#/Vol] 5.9 10*3/uL Normal 4.0-11.0 [facility] Comment on above: Performed By: #### 4 8066-5 #### [facility] ([id number]) [address] [place] [address] #### CBCA, HA1C, CMP, #### [facility] ([id number]) [address] [facility], [address] [place] [address] COMPREHENSIVE METABOLIC PANE Ton 12-08-2024 Albumin [Mass/Vol] 3.6 g/dL Normal 3.2-5.3 [facility] Comment on above: Performed By: #### 4 8066-5 #### [facility] ([id number]) [address] [place] [address] #### CBCA, HA1C, CMP, 06225-3 #### [facility] ([id number]) [address] [facility], [address] [place] [address] ALP [Catalytic activity/Vol] 57 U/L Normal 39-130 [facility] Comment on above: Performed By: #### 4 8066-5 #### [facility] ([id number]) [address] [place] [address] #### CBCA, HA1C, CMP, #### [facility] ([id number]) [facility] [facility], [address] [place] [address] ALT [Catalytic activity/Vol] 9 U/L Normal 0-31 [facility] Comment on above: Performed By: #### 4 8066-5 #### [facility] ([id number]) [address] [place] [address] #### CBCA, HA1C, CMP, 95343-9 #### [facility] ([id number]) [address] [place] [address], [address] [place] [address] Anion gap [Moles/Vol] 8 mmol/L Normal 5-15 [facility] Comment on above: Performed By: #### 4 8066-5 #### [facility] ([id number]) [address] [place] [address] 04341 #### CBCA, HA1C, CMP, #### [facility] ([id number]) [address], [address] [place] [address] AST [Catalytic activity/Vol] 18 U/L Normal 0-41 [facility] Comment on above: Performed By: #### 4 8066-5 #### [facility] ([id number]) [address] [place] [address] 68093 #### CBCA, HA1C, CMP, #### [facility] ([id number]) [address], [address] [place] [address] Bilirubin [Mass/Vol] 0.6 mg/dL Normal 0.3-1.2 [facility] Comment on above: Performed By: #### 4 8066-5 #### [facility] ([id number]) [address] [place] [address] 48347 #### CBCA, HA1C, CMP, #### [facility] ([id number]) [address], [address] [place] [address] Calcium [Mass/Vol] 8.7 mg/dL Normal 8.5-10.5 [facility] Comment on above: Performed By: #### 4 8066-5 #### [facility] ([id number]) [address] [place] [address] 71435 #### CBCA, HA1C, CMP, #### [facility] ([id number]) [address], [address] [place] [address] Chloride [Moles/Vol] 107 mmol/L Normal 98-109 [facility] Comment on above: Performed By: #### 4 8066-5 #### [facility] ([id number]) [address] [place] [address] 29832 #### CBCA, HA1C, CMP, 1 #### [facility] ([id number]) [address], [address] [place] [address] CO2 [Moles/Vol] 26 mmol/L Normal 22-32 [facility] Comment on above: Performed By: #### 4 8066-5 #### [facility] ([id number]) [address] [place] [address] #### CBCA, HA1C, CMP, #### [facility] ([id number]) [address], [address] [place] [address] Creatinine [Mass/Vol] 1.40 mg/dL High 0.40-1.00 [facility] Comment on above: Result Comment: METH OD TRACEABLE TO IDMS STANDARD Performed By: #### 4 8066-5 #### [facility] ([id number]) [address] [place] [address] 15924 #### CBCA, HA1C, CMP, #### [facility] ([id number]) [address], [address] [place] [address] GFR/1.73 sq M.predicted among non-blacks MDRD (S/P/Bld) [Vol rate/Area] 37 mL/min/{1.73_m2} Low >59 [facility] Comment on above: Result Comment: Reported eGFR is based on the CKD-EPI 2020 equation that does not use a race coefficient. Performed By: #### 4 8066-5 #### [facility] ([id number]) [address] [place] [address] 45994 #### CBCA, HA1C, CMP, #### [facility] ([id number]) [address] [place] [address] Glucose [Mass/Vol] 88 mg/dL Normal 65-99 [facility] Comment on above: Performed By: #### 4 8066-5 #### [facility] ([id number]) [address] [place] [address] 39641 #### CBCA, HA1C, CMP, #### [facility] ([id number]) [address], [address] [place] [address] Potassium [Moles/Vol] 4.2 mmol/L Normal 3.5-5.0 [facility] Comment on above: Performed By: #### 4 8066-5 #### [facility] ([id number]) [address] [place] [address] 38348 #### CBCA, HA1C, CMP, #### [facility] ([id number]) [address] [place] [address] Protein [Mass/Vol] 6.4 g/dL Normal 6.0-8.0 [facility] Comment on above: Performed By: #### 4 8066-5 #### [facility] ([id number]) [address] [place] [address] 36840 #### CBCA, HA1C, CMP, #### [facility] ([id number]) [address], [address] [place] [address] Sodium [Moles/Vol] 141 mmol/L Normal 134-146 [facility] Comment on above: Performed By: #### 4 8066-5 #### [facility] ([id number]) [address] [place] [address] 74010 #### CBCA, HA1C, CMP, #### [facility] ([id number]) [address], [address] [place] [address] Urea nitrogen [Mass/Vol] 20 mg/dL Normal 5-27 [facility] Comment on above: Performed By: #### 4 8066-5 #### [facility] ([id number]) [address] [place] [address] 86247 #### CBCA, HA1C, CMP, #### [facility] ([id number]) [address], [address] [place] [address] Fibrin D-dimer DDU (PPP) [Ma ss/Vol]on 12-08-2024 D DIMER 1419 ng/mL DDU High <255 [facility] Comment on above: Result Comment: Results >=255ng/mL DDU: Results may be indicative of the presence of VTE. The use of the Wells score and further diagnostic tests should be considered. Elevated D-Dimer levels can also be associated with DIC, neoplasm, , trauma and liver disease. Elevated levels of rheumatoid factor may lead to an overestimation of the D-Dimer level. Performed By: #### 4 8066-5 #### [facility] ([id number]) [address] [place] [address] 54196 #### CBCA, HA1C, CMP, 1 #### [facility] ([id number]) [address], [address] [place] [address] Fibrin D-dimer FEU (PPP) [Ma ss/Vol]on 12-08-2024 Fibrin D-dimer DDU (PPP) [Mass/Vol] [address] [facility] [place] Comment on above: Results >=255ng/mL DDU: Results may be indicative of the presence of VTE. The use of the Wells score and further diagnostic tests should be considered. Elevated D-Dimer levels can also be associated with DIC, neoplasm, , trauma and liver disease. Elevated levels of rheumatoid factor may lead to an overestimation of the D-Dimer level. PERFORMED AT [address] [place] [address] The copy-to physician of this order is DOUGLAS Llanos ; , ; The ordering physician of this order is STACEY Guido Interpretation and review of laboratory results Abnormal [facility] HGB A1C (GLYCO-HGB)on 2024 Glucose [Mass/Vol] 97 mg/dL Normal [facility] Comment on above: Performed By: #### 4 8066-5 #### [facility] ([id number]) [address] [place] [address] 22553 #### CBCA, HA1C, CMP, #### [facility] ([id number]) [facility], [address] [place] [address] HbA1c (Bld) [Mass fraction] 5.0 % Normal 4.4-5.6 [facility] Comment on above: Result Comment: NOTE ADA Guidelines Result HgbA1c Normal : less than 5.7 % Prediabetes : 5.7 % to 6.4 % Diabetes : > 6.4 % Use with caution in patients with abnormal hemoglobin variants as the half-life of red blood cells and in vivo glycation rates are affected. Performed By: #### 4 8066-5 #### [facility] ([id number]) [address] [place] [address] 46283 #### CBCA, HA1C, CMP, 16060-2 #### [facility] ([id number]) [address] [facility], [address] [place] [address] Lipid 1996 panelon Cholesterol [Mass/Vol] 123 mg/dL Low 150-200 [facility] Comment on above: Performed By: #### 4 8066-5 #### [facility] ([id number]) [address] [place] [address] 60851 #### CBCA, HA1C, CMP, 26568-0 #### [facility] ([id number]) [address], [address] [place] [address] Cholesterol in HDL [Mass/Vol] 39 mg/dL Low >39 [facility] Comment on above: Result Comment: HDL <40 mg/dL - High Risk HDL > or = 40mg/dL- Desirable HDL >60 mg/dL - Negative Risk Performed By: #### 4 8066-5 #### [facility] ([id number]) [address] [place] [address] 11851 #### SHEFALI, PATRICK1C, CMP, #### [facility] ([id number]) [address], [address] [place] [address] Cholesterol in LDL [Mass/Vol] 64 mg/dL Normal <130 [facility] Comment on above: Result Comment: LDL <100 mg/dL - Desirable LDL >160 mg/dL - High Risk Performed By: #### 4 8066-5 #### [facility] ([id number]) [address] [place] [address] 03903 #### SHEFALI, HA1C, CMP, #### [facility] ([id number]) [address] [place] [address] Cholesterol in VLDL [Mass/Vol] 20 mg/dL Normal 0-30 [facility] Comment on above: Performed By: #### 4 8066-5 #### [facility] ([id number]) [address] [place] [address] 12215 #### CAILINA, HA1C, CMP, #### [facility] ([id number]) [address], [address] [place] [address] CHOLESTEROL:HDL 3.2 Normal 1.0-5.0 [facility] Comment on above: Performed By: #### 4 8066-5 #### [facility] ([id number]) [address] [place] [address] 13364 #### CBCA, HA1C, CMP, 79062-6 #### [facility] ([id number]) [address], [address] [place] [address] Triglyceride [Mass/Vol] 100 mg/dL Normal 27-150 [facility] Comment on above: Performed By: #### 4 8066-5 #### [facility] ([id number]) [address] [place] [address] 35786 #### CBCA, HA1C, CMP, 14217-6 #### [facility] ([id number]) [address], [address] [place] [address] CALCIUMon 07-30-2024 Calcium [Mass/Vol] 8.3 mg/dL Low 8.5-10.5 [facility] Comment on above: Performed By: #### 1 7861-6 #### [facility] ([id number]) [address], [address] [place] [address] ALL CBC WITH AUTO DIFFon Erythrocyte distribution width (RBC) [Ratio] 17.3 % High 11.8 - 14.4 % [facility] Hematocrit (Bld) [Volume fraction] 34.3 % Low 36.3 - 47.1 % [facility] Hemoglobin (Bld) [Mass/Vol] 10.6 g/dL Low 11.9 - 15.1 g/dL [facility] Interpretation and review of laboratory results Abnormal [facility] MCH (RBC) [Entitic mass] 26.4 pg 25.2 - 33.5 pg [facility] MCHC (RBC) [Mass/Vol] 30.9 g/dL 28.4 - 34.8 g/dL [facility] MCV (RBC) [Entitic vol] 85.5 fL 82.6 - 102.9 fL [facility] MHPT NRBC AUTOMATED 0 0.0 per 100 WBC [facility] MHPT PLATELET COUNT 278 [facility] MHPT WBC COUNT 7.5 [facility] Platelet mean volume (Bld) [Entitic vol] 10.1 fL 8.1 - 13.5 fL [facility] RBC (Bld) [#/Vol] 4.01 10*6/uL 3.95 - 5.11 m/uL [facility] Original Ordering Provider: MURIEL WHITLEYISYNC [facility] Basic Metabolic Panelon 11-2 Anion gap [Moles/Vol] 9 mmol/L 9 - 16 mmol/L [facility] Calcium [Mass/Vol] 8.8 mg/dL 8.6 - 10. 4 mg/dL [facility] Chloride [Moles/Vol] 105 mmol/L 98 - 10 7 mmol/L [facility] CO2 [Moles/Vol] 26 mmol/L 20 - 31 mmol/L [facility] Creatinine [Mass/Vol] 1.1 mg/dL High 0.50 - 0.90 mg/dL [facility] Est, Glom Filt Rate 51 Low - PINF [facility] Comment on above: These results are not intended for use [...] following therapy that affects renal tubular secretion. Glucose [Mass/Vol] 91 mg/dL 74 - 99 mg/dL [facility] Potassium [Moles/Vol] 4.6 mmol/L 3.7 - 5.3 mmol/L [facility] Sodium [Moles/Vol] 140 mmol/L 136 - 145 mmol/L [facility] Urea nitrogen [Mass/Vol] 20 mg/dL 8 - 23 mg/dL [facility] Urea nitrogen/Creatinine [Mass ratio] 18 mg/mg 9 - 20 [facility] Basic Metabolic Profon 07-08 Anion gap [Moles/Vol] 9 mmol/L Normal 9-16 [facility] Comment on above: Performed By: #### C BC #### [facility] [address] [place], [place] [address] Blade Aligner: Renan Huerta MD BUN/CRE Ratio 18 Normal 9-20 [facility] Comment on above: Performed By: #### C BC #### [facility] [address] [place], [place] [address] Blade Aligner: Renan Huerta MD Calcium [Mass/Vol] 8.8 mg/dL Normal 8.6-10.4 [facility] Comment on above: Performed By: #### C BC #### [facility] [address] [place], [place] [address] Blade Aligner: Renan Huerta MD Chloride [Moles/Vol] 105 mmol/L Normal 98-107 [facility] Comment on above: Performed By: #### C BC #### [facility] [address] [place], [place] 0[address] Blade Aligner: Renan Huerta MD CO2 [Moles/Vol] 26 mmol/L Normal 20-31 [facility] Comment on above: Performed By: #### C BC #### [facility] [address] [place], [place] 6648[address] Blade Aligner: Renan Huerta MD Creatinine [Mass/Vol] 1.1 mg/dL High 0.50-0.90 [facility] Comment on above: Performed By: #### C BC #### [facility] [address] [place], [place] 4423[address] Blade Aligner: Renan Huerta MD GFR/1.73 sq M.predicted among non-blacks MDRD (S/P/Bld) [Vol rate/Area] 51 mL/min/{1.73_m2} Low >60 [facility] Comment on above: Result Comment: These results are not intended for [...] following therapy that affects renal tubular secretion. Performed By: #### C BC #### [facility] [address] [place] [address] [place] [address] Blade Aligner: Renan Huerta MD Glucose [Mass/Vol] 91 mg/dL Normal 74-99 [facility] Comment on above: Performed By: #### C BC #### [address] [place] [id number] Blade Aligner: Renan Huerta MD Potassium [Moles/Vol] 4.6 mmol/L Normal 3.7-5.3 [facility] Comment on above: Performed By: #### C BC #### [address] [place] [address] Blade Aligner: Renan Huerta MD Sodium [Moles/Vol] 140 mmol/L Normal 136-145 [facility] Comment on above: Performed By: #### C BC #### [address] [place] [address] Blade Aligner: Renan Huerta MD Urea nitrogen [Mass/Vol] 20 mg/dL Normal 8-23 [facility] Comment on above: Performed By: #### C BC #### [facility] [address] [place] [address] [place], [place] [id number] Blade Aligner: Renan Huerta MD Brain Natri. Peptideon 07-08 Natriuretic peptide B (Bld) [Mass/Vol] 3568 pg/mL High 0-450 [facility] Comment on above: Performed By: #### C BC #### [facility] [address] [place] [address] Blade Aligner: Renan Huerta MD Brain Natriuretic Peptideon 07-08-2024 Natriuretic peptide B (Bld) [Mass/Vol] 3568 pg/mL High 0 - 450 pg/mL [facility] CBCon 07-08-2024 Erythrocyte distribution width (RBC) [Ratio] 17.3 % High 11.8 - 14.4 % [facility] Hematocrit (Bld) [Volume fraction] 34.3 % Low 36.3 - 47.1 % [facility] Hemoglobin (Bld) [Mass/Vol] 10.6 g/dL Low 11.9 - 15.1 g/dL [facility] Interpretation and review of laboratory results Abnormal [facility] MCH (RBC) [Entitic mass] 26.4 pg 25.2 - 33.5 pg [facility] MCHC (RBC) [Mass/Vol] 30.9 g/dL 28.4 - 34.8 g/dL [facility] MCV (RBC) [Entitic vol] 85.5 fL 82.6 - 102.9 fL [facility] Nucleated RBC/100 WBC (Bld) [Ratio] 0.0 % 0.0 per 100 WBC [facility] Platelet mean volume (Bld) [Entitic vol] 10.1 fL 8.1 - 13.5 fL [facility] Platelets (Bld) [#/Vol] 278 10*3/uL [facility] RBC (Bld) [#/Vol] 4.01 10*6/uL 3.95 - 5.11 m/uL [facility] WBC other (Bld) [#/Vol] 7.5 B on [facility] Erythrocyte distribution width (RBC) [Ratio] 17.3 % High 11.8-14.4 [facility] Comment on above: Performed By: #### C BC #### [facility] [address] [place] [address] Blade Aligner: Renan Huerta MD Hematocrit (Bld) [Volume fraction] 34.3 % Low 36.3-47.1 [facility] Comment on above: Performed By: #### C BC #### [address] [place], [place] 2369[address] Blade Aligner: Renan Huerta MD Hemoglobin (Bld) [Mass/Vol] 10.6 g/dL Low 11.9-15.1 [facility] Comment on above: Performed By: #### C BC #### [address] [place], [facility]83 Blade Aligner: Renan Huerta MD MCH (RBC) [Entitic mass] 26.4 pg Normal 25.2-33.5 [facility] Comment on above: Performed By: #### C BC #### [address] [place] [id number] Blade Aligner: Renan Huerta MD MCHC (RBC) [Mass/Vol] 30.9 g/dL Normal 28.4-34.8 [facility] Comment on above: Performed By: #### C BC #### [address] [place], [facility]83 Blade Aligner: Renan Huerta MD MCV (RBC) [Entitic vol] 85.5 fL Normal 82.6-102.9 [facility] Comment on above: Performed By: #### C BC #### [address] [place], [facility]83 Blade Aligner: Renan Huerta MD NRBC Automated 0.0 per 100 WBC Normal 0.0 [facility] Comment on above: Performed By: #### C BC #### [address] [place] [address] Blade Aligner: Renan Huerta MD Platelet mean volume (Bld) [Entitic vol] 10.1 fL Normal 8.1-13.5 [facility] Comment on above: Performed By: #### C BC #### [facility] [address] [place], [place] [address] Blade Aligner: Renan Huerta MD Platelets (Bld) [#/Vol] 278 10*3/uL Normal 138-453 [facility] Comment on above: Performed By: #### C BC #### [facility] [address] [place] [id number] Blade Aligner: Renan Huerta MD RBC (Bld) [#/Vol] 4.01 10*6/uL Normal 3.95-5.11 [facility] Comment on above: Performed By: #### C BC #### [facility] [address] [place], [place] [address] Blade Aligner: Renan Huerta MD WBC (Bld) [#/Vol] 7.5 10*3/uL Normal 3.5-11.3 [facility] Comment on above: Performed By: #### C BC #### [facility] [address] [place], [place] 25[address] Blade Aligner: Renan Huerta MD No Panel Informationon 07-08 Interpretation and review of laboratory results Abnormal [facility] Orders Onlyon 07-04-2024 Orders Only [id number] Corrina Lambert 1940 F Date Provider Department [place] 07/04/2024 [facility] No family history on file [facility] 36on 07-01-2024 36 I spoke with patient . Patient states she does take this medication daily, and her PCP is Dr Douglas Will. Normal [facility] CT CTA ABD AND PELVISon 06-17 CT CTA ABD AND PELVIS CT CTA ABD AND PEL VIS CLINICAL INFORMATION: Aortic dissection. Aortic aneurysm. COMPARISON: CT scan 12/20/2023. PROCEDURE: CT Angiography of the abdomen and pelvis obtained with IV contrast. Cross-sectional 3-D Maximum intensity projection reconstructions constructed under concurrent physician supervision on a independent workstation for evaluation of arterial structures. All CT scans at this facility dose modulation, iterative reconstruction, and/or weight based dosing when appropriate to reduce radiation dose to as low as reasonably achievable. FINDINGS: Abdominal aorta: Moderate to severe scattered atherosclerotic calcification. No aneurysm. The previously visualized penetrating ulcer/dissection at the anterior abdominal aortic wall of the infrarenal abdominal aorta is not seen on this study and has likely resolved. Aorta the celiac: 2.5 x 2.9 cm. Perirenal abdominal aorta: 2.2 x 2.5 cm. Infrarenal abdominal aorta: 1.8 x 2.0 cm. Aorta at the bifurcation: 2.2 x 2.5 cm. Right mid common iliac artery: 1.5 x 1.8 cm. Left mid common iliac artery: 1.2 x 1.5 cm. Celiac: Hairpin configuration with moderate to severe stenosis at the ostium of the celiac trunk. Celiac territory is otherwise patent with scattered atherosclerotic calcification. SMA: Mild stenosis at the ostium secondary to atherosclerotic calcification. Distal SMA territory is normal. Renal arteries: Moderate stenosis at the ostium of the bilateral renal arteries. Beaded appearance of the right renal artery. LISA: Moderate stenosis at the ostium, otherwise unremarkable. Iliac arteries: Moderate to severe atherosclerotic calcification at the common iliac arteries without significant stenosis. Internal iliac arteries are patent with moderate atherosclerotic calcification. The external iliac and partially visualized femoral arteries are patent with mild to moderate scattered atherosclerotic plaque. Other findings: See CTA chest for thoracic findings. The liver is unremarkable. Gallbladder surgically absent. There is reservoir effect biliary dilatation. Cystic structure at the pancreatic head measuring 9 mm. Cystic structure at the pancreatic body measuring 11 mm. The spleen is unremarkable. Adrenal glands are unremarkable. Left renal cysts, largest at the upper pole measuring 4.3 cm. No hydronephrosis or ureteral obstruction. No intra-abdominal free air or free fluid. Gastrostomy tube in place. No small bowel obstruction. No acute findings in the colon. No acute osseous abnormalities.. 3-D reformatted images confirm the source data findings. IMPRESSION: 1. No acute findings. 2. Previously visualized small intramural hematoma with dissection at the anterior wall of the infrarenal abdominal aorta is not seen on this study and has likely resolved. 3. 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 4. Moderate scattered atherosclerotic calcification throughout the aorta and iliac vessels. Detailed thoracic findings as above. 5. Redemonstration of small pancreatic cysts, largest at the body measuring 11 mm. 6. Additional chronic findings as above. Finalized by Shubham Larkin MD on 07/01/2024 8:52 AM Normal [facility] CT CTA CHESTon 06-30-[address] CHEST [address] CTA CHEST HISTORY: Intramural hematoma of thoracic aorta, penetrating ulcer of the aorta, aortic endograft repair in 12/2023 COMPARISON: 01/14/2024, 12/20/2023, 11/23/2023, 12/27/2021, 02/15/2020 TECHNIQUE: Contiguous axial images are obtained of the Chest with and without IV contrast. Coronal and sagittal reconstructions were performed and reviewed. Sagittal and coronal reformatted images with 3-D Maximum intensity projection reconstructions constructed under concurrent physician supervision on a separate workstation. Automatic exposure control was utilized. All CT scans at this facility use dose modulation, iterative reconstruction, and/or weight based dosing when appropriate to reduce radiation dose to as low as reasonably achievable. FINDINGS: LOWER NECK: Unremarkable. MEDIASTINUM: The visualized thyroid is unremarkable. No mediastinal lymphadenopathy. No hilar lymphadenopathy. AXILLA: No axillary lymphadenopathy. HEART: Mild cardiomegaly. Left sided cardiac pacing device. Trace pericardial effusion. Heavy coronary artery calcification/stents. AORTA: Unchanged thoracic aorta endograft extending from proximal to the origin of the brachiocephalic artery to just proximal to the celiac artery origin. Unchanged left subclavian stent. No evidence of dissection or extraluminal opacification. Heavy atherosclerotic calcification of the abdominal aorta at the origins of the celiac and SMA arteries. Poststenotic dilatation of the celiac artery distal to its origin. Aortic sinus: 3.1 x 3.9 cm Sinotubular junction: 3.0 x 3.5 cm Mid ascendin.5 x 3.9 cm Aorta post graft: 2.7 x 3.0 cm PULMONARY ARTERIES: No filling defects of the main pulmonary arteries to suggest emboli. Ectasia of the main pulmonary artery measuring 3.3 cm which can be seen in the setting of pulmonary arterial hypertension. ABDOMEN: Cholecystectomy with prominence of the intra and extra hepatic bile ducts compatible with the reservoir effect. Stable left renal cysts requiring no additional follow-up. Small hiatal hernia. SOFT TISSUES: The soft tissues are unremarkable. BONES: Degenerative changes of the thoracic spine with kyphosis and chronic wedging of multiple thoracic vertebral bodies. Old left-sided rib fractures. LUNGS: The trachea and proximal airways are unremarkable. Moderate centrilobular emphysema. Bibasilar atelectasis/scarring. Atelectasis/scarring in the right middle lobe and lingula. LUNG NODULES: Groundglass nodule in the posterior right upper lobe measuring up to 2.2 cm. Additional 5 mm groundglass nodule located more superiorly and 5 mm groundglass nodule more anteriorly. Groundglass opacity in the anterior left lower lobe measuring up to 1 cm. Above nodules appear stable compared to CT chest 02/15/2020. PLEURA: No pleural effusions or pneumothorax. IMPRESSION: * Stable thoracic aortic endograft. No evidence of endoleak or aortic dissection. * Stable left subclavian artery stent. * Stable bilateral pulmonary nodules. Consider low-dose CT follow-up in one year. Approved by Resident Maria D Leal DO on 06/30/2024 1:18 PM IUrbano MD have personally reviewed the image(s) and agree with and/or edited the report Finalized by Urbano Pugh MD on 06/30/2024 2:16 PM Normal [facility] Refillon 06-30-2024 Refill [id number] Corrina Lambert 1940 F Date Provider Department Center 06/30/202478698-TRSFSONSMEHNAZ HAYNES [facility] No family history on file Reason for Visit and Comments: Med Refill [[id number]] Normal [facility] DEXA SCAN CENTRAL SKELETALon 06-16-2024 DEXA SCAN CENTRAL SKELETAL DEXA SCAN CENTRAL SKELETAL CLINICAL INFORMATION: Other fdc (current) drug therapy; Age-related osteoporosis without current [...] Lloyd Davis MD on 06/16/2024 9:39 PM [facility] 36on 06-06-2024 36 Patient not under my care. Normal [facility] Refillon 06-06-2024 Refill [id number] Corrina Lambert 1940 F Date Provider Department Center 06/06/202409103-FNCVIAZHMEHNAZ HAYNES [facility] No family history on file Reason for Visit and Comments: Med Refill [[id number]] Normal [facility] 36on 05-31-2024 36 [facility] No Panel Informationon 05-24 Type of biopsy: pun h Informed consent: discussed and consent obtained Informed consent comment: The risks and benefits were discussed. Risks include, but are not limited to, bleeding, infection, scarring, pain, & nerve damage. An opportunity to ask questions prior to the procedure was permitted and questions were answered. Patient was prepped and draped in usual sterile fashion: Area cleansed with alcohol. Anesthesia: the lesion was anesthetized in a standard fashion Anesthetic: 1% lidocaine w/ epinephrine 1-100,000 buffered w/ 8.4% NaHCO3 Punch size: 3 mm (A biopsy by punch method was performed using a dermal punch) Suture size: 4-0 Suture type: nylon Suture type comment: Hemostasis was achieved with suture. Hemostasis achieved with: suture Outcome: patient tolerated procedure well Post-procedure details: sterile dressing applied and wound care instructions given Post-procedure details comment: Emphasized the need to contact clinic for any signs of infection, uncontrollable bleeding, or complications. Dressing type: bandage Additional details: Amount of lidocaine used: 1.0 cc Number of sutures used: 2 Specimen sent for: H&E Photo taken yes [facility] CBC panel Auto (Bld)on 04-01 Erythrocyte distribution width (RBC) [Ratio] 14.9 % High 11.5 - 14.5 % [facility] Hematocrit (Bld) [Volume fraction] 31.4 % Low 36.0 - 46.0 % [facility] Hemoglobin (Bld) [Mass/Vol] 9.4 g/dL Low 12.0 - 16.0 g/dL [facility] Interpretation and review of laboratory results Abnormal [facility] MCH (RBC) [Entitic mass] 26.6 pg 26.0 - 34.0 pg [facility] MCHC (RBC) [Mass/Vol] 29.9 g/dL Low 32.0 - 36.0 g/dL [facility] MCV (RBC) [Entitic vol] 89 fL 80 - 100 fL [facility] Nucleated RBC/100 WBC (Bld) [Ratio] 0.0 % [facility] Platelets (Bld) [#/Vol] 245 10*3/uL [facility] RBC (Bld) [#/Vol] 3.54 10*6/uL Low [facility] WBC (Bld) [#/Vol] 5.0 10*3/uL [facility] Erythrocyte distribution width (RBC) [Ratio] 14.9 % High 11.5-14.5 [facility] Comment on above: Performed By: #### 1 9123-9 #### LARISA Dominguez ([id number]) [facility] ([facility]) [address] [place] [address] Hematocrit (Bld) [Volume fraction] 31.4 % Low 36.0-46.0 [facility] Comment on above: Performed By: #### 1 9123-9 #### LARISA Dominguez ([id number]) [facility] ([facility]) [address] [place] [address] Hemoglobin (Bld) [Mass/Vol] 9.4 g/dL Low 12.0-16.0 [facility] Comment on above: Performed By: #### 1 9123-9 #### LARISA Dominguez ([id number]) [facility] ([facility]) [address] [place] [address] MCH (RBC) [Entitic mass] 26.6 pg Normal 26.0-34.0 [facility] Comment on above: Performed By: #### 1 9123-9 #### LARISA Dominguez ([id number]) [facility] ([facility]) [address] [place] [address] MCHC (RBC) [Mass/Vol] 29.9 g/dL Low 32.0-36.0 [facility] Comment on above: Performed By: #### 1 9123-9 #### LARISA Dominguez ([id number]) [facility] ([facility]) [address] [place] [address] MCV (RBC) [Entitic vol] 89 fL Normal 80-100 [facility] Comment on above: Performed By: #### 1 9123-9 #### LARISA Dominguez ([id number]) [facility] ([facility]) [address] [place] [address] Nucleated RBC/100 WBC (Bld) [Ratio] 0.0 /100 WBCs Normal 0.0-0.0 [facility] Comment on above: Performed By: #### 1 9123-9 #### LARISA Dominguez ([id number]) [facility] ([facility]) [address] [place] [address] Platelets (Bld) [#/Vol] 245 x10*3/uL Normal 150-450 [facility] Comment on above: Performed By: #### 1 9123-9 #### LARISA Dominguez ([id number]) [facility] ([facility]) [address] [place] [address] RBC (Bld) [#/Vol] 3.54 x10*6/uL Low 4.00-5.20 [facility] Comment on above: Performed By: #### 1 9123-9 #### LARISA Dominguez ([id number]) [facility] ([facility]) [address] [place] [address] WBC (Bld) [#/Vol] 5.0 x10*3/uL Normal 4.4-11.3 [facility] Comment on above: Performed By: #### 1 9123-9 #### LARISA Dominguez ([id number]) [facility] ([facility]) [address] [place] [address] Magnesiumon 04-01-2024 Magnesium [Mass/Vol] 2.70 mg/dL High 1.60 - 2.40 mg/dL [facility] Magnesium [Mass/Vol] 2.70 mg/dL High 1.60-2.40 [facility] Comment on above: Performed By: #### 1 9123-9 #### LARISA Dominguez ([id number]) [facility] ([facility]) [address] [place] [address] No Panel Informationon 04-01 Interpretation and review of laboratory results Abnormal [facility] RF Esophagus Views W barium contrast Kiana 04-01-2024 1. Unremarkable fluoroscopic esophagram within limits of patient's clinical status as described above. There is no definite fluoroscopic evidence of obvious stricture or obstruction. 2. Mild difficulty in initiating the swallowing. Recommend clinical correlation. A speech swallow study can be performed if clinically warranted. 3. Suggestion of gastroesophageal reflux within limits of evaluation as described above. 4. Incidental note of a linear tubular projection from the posterolateral aspect of distal thoracic esophagus as described above. This could be artifactual related to the positioning of the patient or could represent a small epiphrenic diverticulum. This is only seen towards the end of the examination (series 15, image 1). Recommend correlation with recent endoscopy. MACRO: None Signed by: Manisha Dillon 04/01/2024 11:56 AM Dictation workstation: [id number] [facility] Interpreted By: Manisha Dillon, STUDY: [place] GI ESOPHAGRAM; 04/01/2024 10:35 am INDICATION: Signs/Symptoms:dysphagi a. Patient is recent status post EGD on 03/31/2024. COMPARISON: None. ACCESSION NUMBER(S): [id number] ORDERING CLINICIAN: DONNIE THORPE TECHNIQUE: Initial rn admit radiograph of the esophagus was obtained. Multiple fluoroscopic spot images were obtained after the administration of 150 mL of thin barium. 30 mL of Gastrografin was used initially to exclude leak which was then followed by ingestion of thin barium. The patient tolerated the procedure well. The technique is slightly limited due to limitation in patient positioning from patient's clinical status. FINDINGS: Initial rn admit image demonstrates left chest wall pacemaker that is only partially included in the field of view. Thoracic aortic stent graft is noted. Visualized lung bases are clear. An IVC filter projects over the right paravertebral region at L3-L4 level. There is dense barium/inspissated stool throughout the partially included colon. Patient had mild difficulty to initiate swallowing. Fluoroscopic images initially performed with ingestion of Gastrografin demonstrates normal peristalsis without evidence of leak. Eventually fluoroscopic images demonstrate normal peristalsis with free flow of barium through the pharynx and esophagus without evidence of obstruction or stricture. There is no evidence of extraluminal contrast suggestive of leak. No evidence of intraluminal mass lesions. There is a tubular blind ending projection arising from the right posterolateral aspect of the distal thoracic esophagus at the level of gastroesophageal junction measuring up to 8 mm in length. There is no evidence of dispersion of contrast into subjacent soft tissues on subsequent images (This is best seen on series 15, image 1). There is no evidence of extrinsic compression of the esophagus or pharynx. No evidence of hiatal hernia. Evaluation for gastroesophageal reflux was slightly limited due to moderate amount of residual contrast in the distal thoracic esophagus. However there is suggestion of reflux with proximal extension of the contrast in the distal thoracic esophagus towards the end of examination. Partially opacified stomach demonstrates gastrostomy tube in place projecting over the body. [facility] Manisha Dillon MD - 04/01/2024 Interpreted By: Manisha Dillon, STUDY: [place] GI ESOPHAGRAM; 04/01/2024 10:35 am INDICATION: Signs/Symptoms:dysphagi a. Patient is recent status post EGD on 03/31/2024. COMPARISON: None. ACCESSION NUMBER(S): [id number] ORDERING CLINICIAN: DONNIE THORPE TECHNIQUE: Initial rn admit radiograph of the esophagus was obtained. Multiple fluoroscopic spot images were obtained after the administration of 150 mL of thin barium. 30 mL of Gastrografin was used initially to exclude leak which was then followed by ingestion of thin barium. The patient tolerated the procedure well. The technique is slightly limited due to limitation in patient positioning from patient's clinical status. FINDINGS: Initial rn admit image demonstrates left chest wall pacemaker that is only partially included in the field of view. Thoracic aortic stent graft is noted. Visualized lung bases are clear. An IVC filter projects over the right paravertebral region at L3-L4 level. There is dense barium/inspissated stool throughout the partially included colon. Patient had mild difficulty to initiate swallowing. Fluoroscopic images initially performed with ingestion of Gastrografin demonstrates normal peristalsis without evidence of leak. Eventually fluoroscopic images demonstrate normal peristalsis with free flow of barium through the pharynx and esophagus without evidence of obstruction or stricture. There is no evidence of extraluminal contrast suggestive of leak. No evidence of intraluminal mass lesions. There is a tubular blind ending projection arising from the right posterolateral aspect of the distal thoracic esophagus at the level of gastroesophageal junction measuring up to 8 mm in length. There is no evidence of dispersion of contrast into subjacent soft tissues on subsequent images (This is best seen on series 15, image 1). There is no evidence of extrinsic compression of the esophagus or pharynx. No evidence of hiatal hernia. Evaluation for gastroesophageal reflux was slightly limited due to moderate amount of residual contrast in the distal thoracic esophagus. However there is suggestion of reflux with proximal extension of the contrast in the distal thoracic esophagus towards the end of examination. Partially opacified stomach demonstrates gastrostomy tube in place projecting over the body. IMPRESSION: 1. Unremarkable fluoroscopic esophagram within limits of patient's clinical status as described above. There is no definite fluoroscopic evidence of obvious stricture or obstruction. 2. Mild difficulty in initiating the swallowing. Recommend clinical correlation. A speech swallow study can be performed if clinically warranted. 3. Suggestion of gastroesophageal reflux within limits of evaluation as described above. 4. Incidental note of a linear tubular projection from the posterolateral aspect of distal thoracic esophagus as described above. This could be artifactual related to the positioning of the patient or could represent a small epiphrenic diverticulum. This is only seen towards the end of the examination (series 15, image 1). Recommend correlation with recent endoscopy. MACRO: None Signed by: Manisha Dillon 04/01/2024 11:56 AM Dictation workstation: [id number] [facility] Work Phone: Radiology Study observation (narrative) [facility] Work Phone: RF Esophagus Views W barium contrast POOrdered By: Manisha Dillon on 04-01-2024 [facility] Work Phone: Renal function 2000 panelon 04-01-2024 Albumin BCP dye [Mass/Vol] 3.6 g/dL 3.4 - 5.0 g/dL [facility] Anion gap [Moles/Vol] 10 mmol/L 10 - 2 0 mmol/L [facility] Calcium [Mass/Vol] 7.7 mg/dL Low 8.6 - 10. 3 mg/dL [facility] Chloride [Moles/Vol] 106 mmol/L 98 - 10 7 mmol/L [facility] CO2 [Moles/Vol] 26 mmol/L 21 - 32 mmol/L [facility] Creatinine [Mass/Vol] 0.91 mg/dL 0.50 - 1.05 mg/dL [facility] GFR/1.73 sq M.predicted among non-blacks MDRD (S/P/Bld) [Vol rate/Area] 62 mL/min/{1.73_m2} - PINF [facility] Comment on above: Calculations of dave mated GFR are performed using the 2020 CKD-EPI Study Refit equation without the race variable for the IDMS-Traceable creatinine methods. https://jasn.asnjournals.org/content/early// 409143 Glucose [Mass/Vol] 93 mg/dL 74 - 99 mg/dL [facility] Phosphate [Mass/Vol] 2.4 mg/dL Low 2.5 - 4 .9 mg/dL [facility] Comment on above: The performance marin acteristics of phosphorus testing in heparinized plasma have been validated by the individual laboratory site where testing is performed. Testing on heparinized plasma is not approved by the FDA; however, such approval is not necessary. Potassium [Moles/Vol] 3.9 mmol/L 3.5 - 5.3 mmol/L [facility] Sodium [Moles/Vol] 138 mmol/L 136 - 145 mmol/L [facility] Urea nitrogen [Mass/Vol] 34 mg/dL High 6 - 23 mg/dL [facility] Albumin BCP dye [Mass/Vol] 3.6 g/dL Normal 3.4-5.0 [facility] Comment on above: Performed By: #### 1 9123-9 #### LARISA Dominguez ([id number]) [facility] ([facility]) [address] [place] [address] Anion gap [Moles/Vol] 10 mmol/L Normal 10-20 [facility] Comment on above: Performed By: #### 1 9123-9 #### LARISA Dominguez ([id number]) [facility] ([facility]) [address] [place] [address] Calcium [Mass/Vol] 7.7 mg/dL Low 8.6-10.3 [facility] Comment on above: Performed By: #### 1 9123-9 #### LARISA Dominguez ([id number]) [facility] ([facility]) [address] [place] [address] Chloride [Moles/Vol] 106 mmol/L Normal 98-107 [facility] Comment on above: Performed By: #### 1 9123-9 #### LARISA Dominguez ([id number]) [facility] ([facility]) [address] [place] [address] CO2 [Moles/Vol] 26 mmol/L Normal 21-32 [facility] Comment on above: Performed By: #### 1 9123-9 #### LARISA Dominguez ([id number]) [facility] ([facility]) [address] [place] [address] Creatinine [Mass/Vol] 0.91 mg/dL Normal 0.50-1.05 [facility] Comment on above: Performed By: #### 1 9123-9 #### LARISA Dominguez ([id number]) [facility] ([facility]) [address] [place] [address] Glomerular filtration rate/1.73 sq M.predicted 62 mL/min/1.73m*2 Normal >60 [facility] Comment on above: Result Comment: Calc ulations of estimated GFR are performed using the 2020 CKD-EPI Study Refit equation without the race variable for the IDMS-Traceable creatinine methods. https://jasn.asnjournals.org/content/early//ASN.2020 792140 Performed By: #### 1 9123-9 #### LARISA Dominguez ([id number]) [facility] ([facility]) [address] [place] [address] Glucose [Mass/Vol] 93 mg/dL Normal 74-99 [facility] Comment on above: Performed By: #### 1 9123-9 #### LARISA Dominguez ([id number]) [facility] ([facility]) [address] [place] [address] Phosphate [Mass/Vol] 2.4 mg/dL Low 2.5-4.9 [facility] Comment on above: Result Comment: The performance characteristics of phosphorus testing in heparinized plasma have been validated by the individual laboratory site where testing is performed. Testing on heparinized plasma is not approved by the FDA; however, such approval is not necessary. Performed By: #### 1 9123-9 #### LARISA Dominguez ([id number]) [facility] ([facility]) [address] [place] [address] Potassium [Moles/Vol] 3.9 mmol/L Normal 3.5-5.3 [facility] Comment on above: Performed By: #### 1 9123-9 #### LARISA Dominguez ([id number]) [facility] ([facility]) [address] [place] [address] Sodium [Moles/Vol] 138 mmol/L Normal 136-145 [facility] Comment on above: Performed By: #### 1 9123-9 #### LARISA Dominguez ([id number]) [facility] ([facility]) [address] [place] [address] Urea nitrogen [Mass/Vol] 34 mg/dL High 6-23 [facility] Comment on above: Performed By: #### 1 9123-9 #### LARISA Dominguez ([id number]) [facility] ([facility]) [address] [place] [address] Blood type and Indirect anti body screen panel (Bld)on 03-31-2024 ABO group Nom (Bld) A [facility] Blood group antibody screen Ql Negative [facility] D Ag Ql (Bld) Positive [facility] ABO group Nom (Bld) A [facility] Comment on above: Performed By: #### 3 4532-2 ####LARISA Dominguez ([id number])[facility] ([facility])[address] [place] [address] Blood group antibody screen Ql Negative [facility] Comment on above: Performed By: #### 3 4532-2 ####LARISA Dominguez ([id number])[facility] ([facility])[address] [place] [address] D Ag Ql (Bld) Positive [facility] Comment on above: Performed By: #### 3 4532-2 ####LARISA Dominguez ([id number])[facility] ([facility])[address] [place] [address] CBC panel Auto (Bld)on 03-31 Erythrocyte distribution width (RBC) [Ratio] 15.1 % High 11.5 - 14.5 % [facility] Hematocrit (Bld) [Volume fraction] 30.4 % Low 36.0 - 46.0 % [facility] Hemoglobin (Bld) [Mass/Vol] 9.3 g/dL Low 12.0 - 16.0 g/dL [facility] Interpretation and review of laboratory results Abnormal [facility] MCH (RBC) [Entitic mass] 26.9 pg 26.0 - 34.0 pg [facility] MCHC (RBC) [Mass/Vol] 30.6 g/dL Low 32.0 - 36.0 g/dL [facility] MCV (RBC) [Entitic vol] 88 fL 80 - 100 fL [facility] Nucleated RBC/100 WBC (Bld) [Ratio] 0.0 % [facility] Platelets (Bld) [#/Vol] 273 10*3/uL [facility] RBC (Bld) [#/Vol] 3.46 10*6/uL Low [facility] WBC (Bld) [#/Vol] 5.6 10*3/uL [facility] Erythrocyte distribution width (RBC) [Ratio] 15.1 % High 11.5-14.5 [facility] Comment on above: Performed By: #### 5 8410-2 ####LARISA Dominguez ([id number])[facility] ([facility])[address] [place] [address] Hematocrit (Bld) [Volume fraction] 30.4 % Low 36.0-46.0 [facility] Comment on above: Performed By: #### 5 8410-2 ####LARISA Dominguez ([id number])[facility] ([facility])[address] [place] [address] Hemoglobin (Bld) [Mass/Vol] 9.3 g/dL Low 12.0-16.0 [facility] Comment on above: Performed By: #### 5 8410-2 ####LARISA Dominguez ([id number])[facility] ([facility])[address] [place] [address] MCH (RBC) [Entitic mass] 26.9 pg Normal 26.0-34.0 [facility] Comment on above: Performed By: #### 5 8410-2 ####LARISA Dominguez ([id number])[facility] ([facility])[address] [place] [address] MCHC (RBC) [Mass/Vol] 30.6 g/dL Low 32.0-36.0 [facility] Comment on above: Performed By: #### 5 8410-2 ####LARISA Dominguez ([id number])[facility] ([facility])[address] [place] [address] MCV (RBC) [Entitic vol] 88 fL Normal 80-100 [facility] Comment on above: Performed By: #### 5 8410-2 ####LARISA Dominguez ([id number])[facility] ([facility])[address] [facility] [place] [address] Nucleated RBC/100 WBC (Bld) [Ratio] 0.0 /100 WBCs Normal 0.0-0.0 [facility] Comment on above: Performed By: #### 5 8410-2 ####LARISA Dominguez ([id number])[facility] ([facility])[address] [facility] [place] [address] Platelets (Bld) [#/Vol] 273 x10*3/uL Normal 150-450 [facility] Comment on above: Performed By: #### 5 8410-2 ####LARISA Dominguez ([id number])[facility] ([facility])[address] [facility] [place] [address] RBC (Bld) [#/Vol] 3.46 x10*6/uL Low 4.00-5.20 [facility] Comment on above: Performed By: #### 5 8410-2 ####LARISA Dominguez ([id number])[facility] ([facility])[address] [place] [address] WBC (Bld) [#/Vol] 5.6 x10*3/uL Normal 4.4-11.3 [facility] Comment on above: Performed By: #### 5 8410-2 ####LARISA Dominguez ([id number])[facility] ([facility])[address] [place] [address] EGDon 03-31-2024 Esophagogastroduodenosc opy Table formatting from the original result was [...] unspecified whether esophagitis present Staff Staff Role Nolan Julio MD MPH Proceduralist Medications See Anesthesia [...] STOMACH Tissue FOREIGN BODY(S) SURGICAL PATHOLOGY EXAM Nolan Julio MD MPH 03/31/2024 0831 Procedure Location [address] [address] [place] [address] Referring Provider Rock Alanis MD Procedure Provider Nolan Julio MD MPH [facility] EGD Study observation Narrat cinthya 03-31-2024 Table formatting fro m the original result was not included. Impression [...] unspecified whether esophagitis present Staff Staff Role Nloan Julio MD MPH Proceduralist Medications See Anesthesia [...] STOMACH Tissue FOREIGN BODY(S) SURGICAL PATHOLOGY EXAM Nolan Julio MD MPH 03/31/2024 0831 Procedure Location [facility] [address] [address] [place] [address] Referring Provider Rock Alanis MD Procedure Provider Nolan Julio MD MPH [facility] Work Phone: Radiology Study observation (narrative) [facility] Work Phone: EGD Study observation Narrat iveOrdered By: Nolan Julio on 03-31-2024 [facility] Work Phone: [place] GI ESOPHAGRAMon [place] GI ESOPHAGRAM Interpreted By: Manisha Dillon, STUDY: [place] GI ESOPHAGRAM; 04/01/2024 10:35 am INDICATION: Signs/Symptoms:dysphagi a. Patient is recent status post EGD on 03/31/2024. COMPARISON: None. ACCESSION NUMBER(S): [id number] ORDERING CLINICIAN: DONNIE THORPE TECHNIQUE: Initial rn admit radiograph of the esophagus was obtained. Multiple fluoroscopic spot images were obtained after the administration of 150 mL of thin barium. 30 mL of Gastrografin was used initially to exclude leak which was then followed by ingestion of thin barium. The patient tolerated the procedure well. The technique is slightly limited due to limitation in patient positioning from patient's clinical status. FINDINGS: Initial rn admit image demonstrates left chest wall pacemaker that is only partially included in the field of view. Thoracic aortic stent graft is noted. Visualized lung bases are clear. An IVC filter projects over the right paravertebral region at L3-L4 level. There is dense barium/inspissated stool throughout the partially included colon. Patient had mild difficulty to initiate swallowing. Fluoroscopic images initially performed with ingestion of Gastrografin demonstrates normal peristalsis without evidence of leak. Eventually fluoroscopic images demonstrate normal peristalsis with free flow of barium through the pharynx and esophagus without evidence of obstruction or stricture. There is no evidence of extraluminal contrast suggestive of leak. No evidence of intraluminal mass lesions. There is a tubular blind ending projection arising from the right posterolateral aspect of the distal thoracic esophagus at the level of gastroesophageal junction measuring up to 8 mm in length. There is no evidence of dispersion of contrast into subjacent soft tissues on subsequent images (This is best seen on series 15, image 1). There is no evidence of extrinsic compression of the esophagus or pharynx. No evidence of hiatal hernia. Evaluation for gastroesophageal reflux was slightly limited due to moderate amount of residual contrast in the distal thoracic esophagus. However there is suggestion of reflux with proximal extension of the contrast in the distal thoracic esophagus towards the end of examination. Partially opacified stomach demonstrates gastrostomy tube in place projecting over the body. IMPRESSION: 1. Unremarkable fluoroscopic esophagram within limits of patient's clinical status as described above. There is no definite fluoroscopic evidence of obvious stricture or obstruction. 2. Mild difficulty in initiating the swallowing. Recommend clinical correlation. A speech swallow study can be performed if clinically warranted. 3. Suggestion of gastroesophageal reflux within limits of evaluation as described above. 4. Incidental note of a linear tubular projection from the posterolateral aspect of distal thoracic esophagus as described above. This could be artifactual related to the positioning of the patient or could represent a small epiphrenic diverticulum. This is only seen towards the end of the examination (series 15, image 1). Recommend correlation with recent endoscopy. MACRO: None Signed by: Manisha Dillon 04/01/2024 11:56 AM Dictation workstation: [id number] [facility] Magnesiumon 03-31-2024 Magnesium [Mass/Vol] 2.81 mg/dL High 1.60 - 2.40 mg/dL [facility] Magnesium [Mass/Vol] 2.81 mg/dL High 1.60-2.40 [facility] Comment on above: Performed By: #### 1 9123-9 ####LARISA Dominguez ([id number])[facility] ([facility])[address] [place] [address] No Panel Informationon 03-31 Interpretation and review of laboratory results Abnormal [facility] PT and aPTT panel Coag (PPP) on 03-31-2024 aPTT Coag (PPP) [Time] 29 s [facility] INR Coag (PPP) [Relative time] 1.0 {INR} 0.9 - 1.1 [facility] Interpretation and review of laboratory results Normal [facility] PT Coag (PPP) [Time] 11.1 s [facility] The APTT is no longe r used for monitoring Unfractionated Heparin Therapy. For monitoring Heparin Therapy, use the Heparin Assay. [facility] aPTT Coag (PPP) [Time] 29 s Normal 27-38 [facility] Comment on above: Order Comment: The A PTT is no longer used for monitoring Unfractionated Heparin Therapy. For monitoring Heparin Therapy, use the Heparin Assay. Performed By: #### 3 4529-8 ####LARISA Dominguez ([id number])[facility] ([facility])[address] [place] [address] INR Coag (PPP) [Relative time] 1.0 Normal 0.9-1.1 [facility] Comment on above: Order Comment: The A PTT is no longer used for monitoring Unfractionated Heparin Therapy. For monitoring Heparin Therapy, use the Heparin Assay. Performed By: #### 3 4529-8 ####LARISA Dominguez ([id number])[facility] ([facility])[address] [place] [address] PT Coag (PPP) [Time] 11.1 s Normal 9.8-12.8 [facility] Comment on above: Order Comment: The A PTT is no longer used for monitoring Unfractionated Heparin Therapy. For monitoring Heparin Therapy, use the Heparin Assay. Performed By: #### 3 4529-8 ####LARISA Dominguez ([id number])[facility] ([facility])[address] [facility] [place] [address] Renal function 2000 panelon 03-31-2024 Albumin BCP dye [Mass/Vol] 3.4 g/dL 3.4 - 5.0 g/dL [facility] Anion gap [Moles/Vol] 10 mmol/L 10 - 2 0 mmol/L [facility] Calcium [Mass/Vol] 7.5 mg/dL Low 8.6 - 10. 3 mg/dL [facility] Chloride [Moles/Vol] 106 mmol/L 98 - 10 7 mmol/L [facility] CO2 [Moles/Vol] 27 mmol/L 21 - 32 mmol/L [facility] Creatinine [Mass/Vol] 1.04 mg/dL 0.50 - 1.05 mg/dL [facility] GFR/1.73 sq M.predicted among non-blacks MDRD (S/P/Bld) [Vol rate/Area] 53 mL/min/{1.73_m2} Low - PINF [facility] Comment on above: Calculations of dave mated GFR are performed using the 2020 CKD-EPI Study Refit equation without the race variable for the IDMS-Traceable creatinine methods. https://jasn.asnjournals.org/content//ASN.2020 202397 Glucose [Mass/Vol] 93 mg/dL 74 - 99 mg/dL [facility] Phosphate [Mass/Vol] 2.5 mg/dL 2.5 - 4 .9 mg/dL [facility] Comment on above: The performance marin acteristics of phosphorus testing in heparinized plasma have been validated by the individual laboratory site where testing is performed. Testing on heparinized plasma is not approved by the FDA; however, such approval is not necessary. Potassium [Moles/Vol] 3.9 mmol/L 3.5 - 5.3 mmol/L [facility] Sodium [Moles/Vol] 139 mmol/L 136 - 145 mmol/L [facility] Urea nitrogen [Mass/Vol] 40 mg/dL High 6 - 23 mg/dL [facility] Albumin BCP dye [Mass/Vol] 3.4 g/dL Normal 3.4-5.0 [facility] Comment on above: Performed By: #### 2 4362-6 ####LARISA Dominguez ([id number])[facility] ([facility])[address] [place] [address] Anion gap [Moles/Vol] 10 mmol/L Normal 10-20 [facility] Comment on above: Performed By: #### 2 4362-6 ####LARISA Dominguez ([id number])[facility] ([facility])[address] [place] [address] Calcium [Mass/Vol] 7.5 mg/dL Low 8.6-10.3 [facility] Comment on above: Performed By: #### 2 4362-6 ####LARISA Dominguez ([id number])[facility] ([facility])[address] [place] [address] Chloride [Moles/Vol] 106 mmol/L Normal 98-107 [facility] Comment on above: Performed By: #### 2 4362-6 ####LARISA Dominguez ([id number])[facility] ([facility])[address] [place] [address] CO2 [Moles/Vol] 27 mmol/L Normal 21-32 [facility] Comment on above: Performed By: #### 2 4362-6 ####LARISA Dominguez ([id number])[facility] ([facility])[address] [place] [address] Creatinine [Mass/Vol] 1.04 mg/dL Normal 0.50-1.05 [facility] Comment on above: Performed By: #### 2 4362-6 ####LARISA Dominguez ([id number])[facility] ([facility])[address] [place] [address] Glomerular filtration rate/1.73 sq M.predicted 53 mL/min/1.73m*2 Low >60 [facility] Comment on above: Result Comment: Calc ulations of estimated GFR are performed using the 2020 CKD-EPI Study Refit equation without the race variable for the IDMS-Traceable creatinine methods. https://jasn.asnjournals.org/content//ASN.2020 282920 Performed By: #### 2 4362-6 ####LARISA Dominguez ([id number])[facility] ([facility])[address] [place] [address] Glucose [Mass/Vol] 93 mg/dL Normal 74-99 [facility] Comment on above: Performed By: #### 2 4362-6 ####LARISA Dominguez ([id number])[facility] ([facility])[address] [place] [address] Phosphate [Mass/Vol] 2.5 mg/dL Normal 2.5-4.9 [facility] Comment on above: Result Comment: The performance characteristics of phosphorus testing in heparinized plasma have been validated by the individual laboratory site where testing is performed. Testing on heparinized plasma is not approved by the FDA; however, such approval is not necessary. Performed By: #### 2 4362-6 ####LARISA Dominguez ([id number])[facility] ([facility])[address] [place] [address] Potassium [Moles/Vol] 3.9 mmol/L Normal 3.5-5.3 [facility] Comment on above: Performed By: #### 2 4362-6 ####LARISA Dominguez ([id number])[facility] ([facility])[address] [place] [address] Sodium [Moles/Vol] 139 mmol/L Normal 136-145 [facility] Comment on above: Performed By: #### 2 4362-6 ####LARISA Dominguez ([id number])[facility] ([facility])[address] [place] [address] Urea nitrogen [Mass/Vol] 40 mg/dL High 6-23 [facility] Comment on above: Performed By: #### 2 4362-6 ####LARISA Dominguez ([id number])[facility] ([facility])[address] [place] [address] Surgical pathology studyon 0 03-31-2024 Surgical pathology study Pathology report.total SEE COMMENT Surgical Pathology Case: [id number] Authorizing Provider: Nolan Julio MD MPH Collected: 03/31/2024 0831 Ordering Location: [facility] 1 Received: 03/31/2024 1003 [facility] Pathologist: Terry Matos MD Specimen: FOREIGN BODY(S), FOREIGN BODY IN STOMACH Path report.final diagnosis SEE COMMENT A: SPECIMEN LABELED FOREIGN BODY IN STOMACH - FOR GROSS EXAMINATION ONLY Laboratory comment By the signature on this report, the individual or group listed as making the Final Interpretation/Diagnosi s certifies that they have reviewed this case. Path report.gross observation SEE COMMENT A: Received in formalin, labeled with the patient's name and hospital number and foreign body in stomach , is a cylindrical segment of metal material measuring 2.2 cm in length and 0.2 cm in diameter. Photographs have been taken. The specimen is for gross examination only. RMP Normal [facility] CBC panel Auto (Bld)on 03-30 Erythrocyte distribution width (RBC) [Ratio] 15.0 % High 11.5 - 14.5 % [facility] Hematocrit (Bld) [Volume fraction] 31.2 % Low 36.0 - 46.0 % [facility] Hemoglobin (Bld) [Mass/Vol] 9.7 g/dL Low 12.0 - 16.0 g/dL [facility] Interpretation and review of laboratory results Abnormal [facility] MCH (RBC) [Entitic mass] 27.0 pg 26.0 - 34.0 pg [facility] MCHC (RBC) [Mass/Vol] 31.1 g/dL Low 32.0 - 36.0 g/dL [facility] MCV (RBC) [Entitic vol] 87 fL 80 - 100 fL [facility] Nucleated RBC/100 WBC (Bld) [Ratio] 0.0 % [facility] Platelets (Bld) [#/Vol] 285 10*3/uL [facility] RBC (Bld) [#/Vol] 3.59 10*6/uL Low [facility] WBC (Bld) [#/Vol] 5.9 10*3/uL [facility] Erythrocyte distribution width (RBC) [Ratio] 15.0 % High 11.5-14.5 [facility] Comment on above: Performed By: #### 5 8410-2 ####LARISA Dominguez ([id number])[facility] ([facility])[address] [place] [address] Hematocrit (Bld) [Volume fraction] 31.2 % Low 36.0-46.0 [facility] Comment on above: Performed By: #### 5 8410-2 ####LARISA Dominguez ([id number])[facility] ([facility])[address] [place] [address] Hemoglobin (Bld) [Mass/Vol] 9.7 g/dL Low 12.0-16.0 [facility] Comment on above: Performed By: #### 5 8410-2 ####LARISA Dominguez ([id number])[facility] ([facility])[address] [place] [address] MCH (RBC) [Entitic mass] 27.0 pg Normal 26.0-34.0 [facility] Comment on above: Performed By: #### 5 8410-2 ####LARISA Dominguez ([id number])[facility] ([facility])[address] [place] [address] MCHC (RBC) [Mass/Vol] 31.1 g/dL Low 32.0-36.0 [facility] Comment on above: Performed By: #### 5 8410-2 ####LARISA Dominguez ([id number])[facility] ([facility])[address] [place] [address] MCV (RBC) [Entitic vol] 87 fL Normal 80-100 [facility] Comment on above: Performed By: #### 5 8410-2 ####LARISA Dominguez ([id number])[facility] ([facility])[address] [facility] [place] [address] Nucleated RBC/100 WBC (Bld) [Ratio] 0.0 /100 WBCs Normal 0.0-0.0 [facility] Comment on above: Performed By: #### 5 8410-2 ####LARISA Dominguez ([id number])[facility] ([facility])[address] [place] [address] Platelets (Bld) [#/Vol] 285 x10*3/uL Normal 150-450 [facility] Comment on above: Performed By: #### 5 8410-2 ####LARISA Dominguez ([id number])[facility] ([facility])[address] [facility] [place] [address] RBC (Bld) [#/Vol] 3.59 x10*6/uL Low 4.00-5.20 [facility] Comment on above: Performed By: #### 5 8410-2 ####ALRISA Dominguez ([id number])[facility] ([facility])[address] [facility] [place] [address] WBC (Bld) [#/Vol] 5.9 x10*3/uL Normal 4.4-11.3 [facility] Comment on above: Performed By: #### 5 8410-2 ####LARISA Dominguez ([id number])[facility] ([facility])[address] [facility] [place] [address] Magnesiumon 03-30-2024 Magnesium [Mass/Vol] 2.50 mg/dL High 1.60 - 2.40 mg/dL [facility] Magnesium [Mass/Vol] 2.50 mg/dL High 1.60-2.40 [facility] Comment on above: Performed By: #### 1 9123-9 ####LARISA Dominguez ([id number])[facility] ([facility])[address] [place] [address] No Panel Informationon 03-30 Interpretation and review of laboratory results Abnormal [facility] Renal function 2000 panelon 03-30-2024 Albumin BCP dye [Mass/Vol] 3.6 g/dL 3.4 - 5.0 g/dL [facility] Anion gap [Moles/Vol] 13 mmol/L 10 - 2 0 mmol/L [facility] Calcium [Mass/Vol] 7.1 mg/dL Low 8.6 - 10. 3 mg/dL [facility] Chloride [Moles/Vol] 106 mmol/L 98 - 10 7 mmol/L [facility] CO2 [Moles/Vol] 25 mmol/L 21 - 32 mmol/L [facility] Creatinine [Mass/Vol] 0.99 mg/dL 0.50 - 1.05 mg/dL [facility] GFR/1.73 sq M.predicted among non-blacks MDRD (S/P/Bld) [Vol rate/Area] 56 mL/min/{1.73_m2} Low - PINF [facility] Comment on above: Calculations of dave mated GFR are performed using the 2020 CKD-EPI Study Refit equation without the race variable for the IDMS-Traceable creatinine methods. https://jasn.asnjournals.org/content//ASN.2020 344065 Glucose [Mass/Vol] 88 mg/dL 74 - 99 mg/dL [facility] Phosphate [Mass/Vol] 2.7 mg/dL 2.5 - 4 .9 mg/dL [facility] Comment on above: The performance marin acteristics of phosphorus testing in heparinized plasma have been validated by the individual laboratory site where testing is performed. Testing on heparinized plasma is not approved by the FDA; however, such approval is not necessary. Potassium [Moles/Vol] 3.8 mmol/L 3.5 - 5.3 mmol/L [facility] Sodium [Moles/Vol] 140 mmol/L 136 - 145 mmol/L [facility] Urea nitrogen [Mass/Vol] 27 mg/dL High 6 - 23 mg/dL [facility] Albumin BCP dye [Mass/Vol] 3.6 g/dL Normal 3.4-5.0 [facility] Comment on above: Performed By: #### 2 4362-6 ####LARISA Dominguez ([id number])[facility] ([facility])[address] [place] [address] Anion gap [Moles/Vol] 13 mmol/L Normal 10-20 [facility] Comment on above: Performed By: #### 2 4362-6 ####LARISA Dominguez ([id number])[facility] ([facility])[address] [place] [address] Calcium [Mass/Vol] 7.1 mg/dL Low 8.6-10.3 [facility] Comment on above: Performed By: #### 2 4362-6 ####LARISA Dominguez ([id number])[facility] ([facility])[address] [place] [address] Chloride [Moles/Vol] 106 mmol/L Normal 98-107 [facility] Comment on above: Performed By: #### 2 4362-6 ####LARISA Dominguez ([id number])[facility] ([facility])[address] [place] [address] CO2 [Moles/Vol] 25 mmol/L Normal 21-32 [facility] Comment on above: Performed By: #### 2 4362-6 ####LARISA Dominguez ([id number])[facility] ([facility])[address] [place] [address] Creatinine [Mass/Vol] 0.99 mg/dL Normal 0.50-1.05 [facility] Comment on above: Performed By: #### 2 4362-6 ####LARISA Dominguez ([id number])[facility] ([facility])[address] [place] [address] Glomerular filtration rate/1.73 sq M.predicted 56 mL/min/1.73m*2 Low >60 [facility] Comment on above: Result Comment: Calc ulations of estimated GFR are performed using the 2020 CKD-EPI Study Refit equation without the race variable for the IDMS-Traceable creatinine methods. https://jasn.asnjournals.org/content//ASN.2020 943798 Performed By: #### 2 4362-6 ####LARISA Dominguez ([id number])[facility] ([facility])[address] [place] [address] Glucose [Mass/Vol] 88 mg/dL Normal 74-99 [facility] Comment on above: Performed By: #### 2 4362-6 ####LARISA Dominguez ([id number])[facility] ([facility])[address] [place] [address] Phosphate [Mass/Vol] 2.7 mg/dL Normal 2.5-4.9 [facility] Comment on above: Result Comment: The performance characteristics of phosphorus testing in heparinized plasma have been validated by the individual laboratory site where testing is performed. Testing on heparinized plasma is not approved by the FDA; however, such approval is not necessary. Performed By: #### 2 4362-6 ####LARISA Dominguez ([id number])[facility] ([facility])[address] [place] [address] Potassium [Moles/Vol] 3.8 mmol/L Normal 3.5-5.3 [facility] Comment on above: Performed By: #### 2 4362-6 ####LARISA Dominguez ([id number])[facility] ([facility])[address] [place] [address] Sodium [Moles/Vol] 140 mmol/L Normal 136-145 [facility] Comment on above: Performed By: #### 2 4362-6 ####LARISA Dominguez ([id number])[facility] ([facility])[address] [place] [address] Urea nitrogen [Mass/Vol] 27 mg/dL High 6-23 [facility] Comment on above: Performed By: #### 2 4362-6 ####LARISA Dominguez ([id number])[facility] ([facility])[address] [place] [address] CBC panel Auto (Bld)on 03-29 Erythrocyte distribution width (RBC) [Ratio] 14.6 % High 11.5 - 14.5 % [facility] Hematocrit (Bld) [Volume fraction] 33.1 % Low 36.0 - 46.0 % [facility] Hemoglobin (Bld) [Mass/Vol] 10.1 g/dL Low 12.0 - 16.0 g/dL [facility] Interpretation and review of laboratory results Abnormal [facility] MCH (RBC) [Entitic mass] 26.6 pg 26.0 - 34.0 pg [facility] MCHC (RBC) [Mass/Vol] 30.5 g/dL Low 32.0 - 36.0 g/dL [facility] MCV (RBC) [Entitic vol] 87 fL 80 - 100 fL [facility] Nucleated RBC/100 WBC (Bld) [Ratio] 0.0 % [facility] Platelets (Bld) [#/Vol] 289 10*3/uL [facility] RBC (Bld) [#/Vol] 3.79 10*6/uL Low [facility] WBC (Bld) [#/Vol] 6.8 10*3/uL [facility] Erythrocyte distribution width (RBC) [Ratio] 14.6 % High 11.5-14.5 [facility] Comment on above: Performed By: #### 5 8410-2 #### LARISA Dominguez ([id number]) [facility] ([facility]) [address] [address] Hematocrit (Bld) [Volume fraction] 33.1 % Low 36.0-46.0 [facility] Comment on above: Performed By: #### 5 8410-2 #### LARISA Dominguez ([id number]) [facility] ([facility]) [address] [place] [address] Hemoglobin (Bld) [Mass/Vol] 10.1 g/dL Low 12.0-16.0 [facility] Comment on above: Performed By: #### 5 8410-2 #### LARISA Dominguez ([id number]) [facility] ([facility]) [address] [place] [address] MCH (RBC) [Entitic mass] 26.6 pg Normal 26.0-34.0 [facility] Comment on above: Performed By: #### 5 8410-2 #### LARISA Dominguez ([id number]) [facility] ([facility]) [address] [place] [address] MCHC (RBC) [Mass/Vol] 30.5 g/dL Low 32.0-36.0 [facility] Comment on above: Performed By: #### 5 8410-2 #### LARISA Dominguez ([id number]) [facility] ([facility]) [address] [place] [address] MCV (RBC) [Entitic vol] 87 fL Normal 80-100 [facility] Comment on above: Performed By: #### 5 8410-2 #### LARISA Dominguez ([id number]) [facility] ([facility]) [address] [place] [address] Nucleated RBC/100 WBC (Bld) [Ratio] 0.0 /100 WBCs Normal 0.0-0.0 [facility] Comment on above: Performed By: #### 5 8410-2 #### LARISA Dominguez ([id number]) [facility] ([facility]) [address] [place] [address] Platelets (Bld) [#/Vol] 289 x10*3/uL Normal 150-450 [facility] Comment on above: Performed By: #### 5 8410-2 #### LARISA Dominguez ([id number]) [facility] ([facility]) [address] [place] [address] RBC (Bld) [#/Vol] 3.79 x10*6/uL Low 4.00-5.20 [facility] Comment on above: Performed By: #### 5 8410-2 #### LARISA Dominguez ([id number]) [facility] ([facility]) [address] [place] [address] WBC (Bld) [#/Vol] 6.8 x10*3/uL Normal 4.4-11.3 [facility] Comment on above: Performed By: #### 5 8410-2 #### LARISA Dominguez ([id number]) [facility] ([facility]) [address] [place] [address] ECG 12 leadOrdered By: Lauren Barragan on 03-29-2024 Atrial Rate 67 BPM [facility] Work Phone: P [place] -24 degrees [facility] Work Phone: P Offset 195 ms [facility] Work Phone: P Onset 134 [facility] Work Phone: MN Interval 188 [facility] Work Phone: Q Onset 224 [facility] Work Phone: QRS Count 11 beats [facility] Work Phone: QRS Duration 78 ms [facility] Work Phone: QT Interval 418 ms [facility] Work Phone: QTC Calculation(Bazett) 441 ms U [facility] Work Phone: QTC Fredericia 434 ms [facility] Work Phone: R [place] -40 degrees [facility] Work Phone: T [place] 30 degrees [facility] Work Phone: T Offset 433 ms [facility] Work Phone: Ventricular Rate 67 BPM [facility] Work Phone: [facility] Work Phone: ECG 12 leadon 03-29-2024 Atrial-paced rhythm Left axis deviation Voltage criteria for left ventricular hypertrophy Abnormal ECG When compared with ECG of 03-JUL-2020 15:36, QRS axis Shifted left See ED provider note for full interpretation and clinical correlation Confirmed by Tami Barragan ([id number]) on 03/29/2024 6:06:09 PM Tami Yadav PA-C - 03/29/2024 Atrial-paced rhythm Left axis deviation Voltage criteria for left ventricular hypertrophy Abnormal ECG When compared with ECG of 03-JUL-2020 15:36, QRS axis Shifted left See ED provider note for full interpretation and clinical correlation Confirmed by Tami Barragan ([id number]) on 03/29/2024 6:06:09 PM [facility] Work Phone: Magnesiumon 03-29-2024 Magnesium [Mass/Vol] 2.17 mg/dL 1.60 - 2.40 mg/dL [facility] Magnesium [Mass/Vol] 2.17 mg/dL Normal 1.60-2.40 [facility] Comment on above: Performed By: #### 1 9123-9 #### LARISA Dominguez ([id number]) [facility] ([facility]) [address] [place] [id number] Magnesium [Mass/Vol]on 03-29 Interpretation and review of laboratory results Normal [facility] No Panel Informationon 03-29 [facility] RF videography Hypopharynx a nd Esophagus Views for swallowing function W speech and W barium contrast Kiana 03-29-2024 Modified barium swal low study as detailed within the report. MACRO: None Signed by: Kelsey Farias 03/29/2024 5:37 PM Dictation workstation: [id number] MMODAL Interpreted By: Kelsey Farias and Mayer Katherine STUDY: [place] MODIFIED BARIUM SWALLOW STUDY;; 03/29/2024 8:59 am INDICATION: Signs/Symptoms:Dysphagi a. COMPARISON: Chest radiographs 03/28/2024 ACCESSION NUMBER(S): [id number] ORDERING CLINICIAN: DONNIE THORPE TECHNIQUE: Modified Barium Swallow Study completed. Informed verbal consent obtained prior to completion of exam. Trials of thin, nectar/mildly thick liquid, honey/moderately thick liquid, puree solids were given. [employer]: Tami Neely [employer] Contact info: Mary Ellenirving perales chat Fluoroscopy time: 1:13 SPEECH FINDINGS: Reason for Referral: dysphagia Patient Hx: Achalasia with history of PEG for nutrition. Recent dilation of esophagus. Respiratory Status: Room air Current diet: pleasure feeds only, unable to tolerate same for 2 weeks Pain: Pain Scale: 0-10 Ratin FINAL SPEECH RECOMMENDATIONS DIET: NPO for nutrition, hydration and medication. Occasional pleasure feeds as tolerated. Plan: [employer] Plan: No treatment needs identified at this time Discussed POC: Patient Discussed Risks/Benefits: Yes Patient/Caregiver Agreeable: Yes Education Provided: Results and recommendations per MBSS, with video review; recommendations and POC at this time. Verbal understanding and agreement given on all accounts. Treatment Provided Today: no Additional consult suggested: GI for evaluation / treatment of esophagus as indicated Repeat study/ dc plan: n/a Mechanics of the Swallow Summary: ORAL PHASE: Lip Closure - Interlabial escape/no progression to anterior lip Tongue Control During Bolus Hold - Escape to lateral buccal cavity and/or floor of mouth Bolus prep/mastication - Mastication not assessed Bolus transport/lingual motion - Brisk tongue motion for A-P movement of the bolus Oral residue - Residue collection on oral structure PHARYNGEAL PHASE: Initiation of pharyngeal swallow - Bolus head at vallecular pit Soft palate elevation - No bolus between soft palate/pharyngeal wall Laryngeal elevation - Complete superior movement of thyroid cartilage with contact of arytenoids to epiglottic petiole Anterior hyoid excursion - Partial anterior movement Epiglottic movement - Complete inversion Laryngeal vestibule closure - Complete - no air/contrast in laryngeal vestibule Pharyngeal stripping wave - Present, however, diminished Pharyngeal contraction (A/P view) - Not tested Pharyngoesophageal segment opening - Partial distension/partial duration with partial obstruction of flow of bolus Tongue base retraction - Trace column of contrast or air between tongue base and pharyngeal wall Pharyngeal residue - Trace residue within or on the pharyngeal structures ESOPHAGEAL PHASE: Esophageal clearance - Minimal to no esophageal clearance [employer] Impressions with Severity Rating: Pt presents with no significant oropharyngeal dysphagia upon completion of modified barium swallow study this date. Swallowing physiology is detailed above. Severe esophageal dysphagia apparent. OUTCOME MEASURES: Functional Oral Intake Scale Functional Oral Intake Scale: Level 2 tube dependent with minimal attempts of food and liquid Rosenbek's Penetration Aspiration Scale Thin Liquids: 2. PENETRATION that CLEARS - contrast enter airway, above vocal cords, no residue [place] Thick Liquids: 2. PENETRATION that CLEARS - contrast enter airway, above vocal cords, no residue Honey Thick Liquids: 1. NO ASPIRATION & NO PENETRATION - no aspiration, contrast does not enter airway Speech Therapy section of this report signed by Tami Neely MS, CCC/[employer] on 03/29/2024 at 9:08 am. 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 Age indeterminate mild T12 anterior wedging. Radiology section of this report signed by Dr. Kelsey Farias DO. MMODAL Kelsey Farias DO - 03/29/2024 Interpreted By: Kelsey Farias and Mayer Katherine STUDY: [place] MODIFIED BARIUM SWALLOW STUDY;; 03/29/2024 8:59 am INDICATION: Signs/Symptoms:Dysphagi a. COMPARISON: Chest radiographs 03/28/2024 ACCESSION NUMBER(S): [id number] ORDERING CLINICIAN: DONNIE THORPE TECHNIQUE: Modified Barium Swallow Study completed. Informed verbal consent obtained prior to completion of exam. Trials of thin, nectar/mildly thick liquid, honey/moderately thick liquid, puree solids were given. [employer]: MOLLY Ortega Contact info: Haiku secure chat Fluoroscopy time: 1:13 SPEECH FINDINGS: Reason for Referral: dysphagia Patient Hx: Achalasia with history of PEG for nutrition. Recent dilation of esophagus. Respiratory Status: Room air Current diet: pleasure feeds only, unable to tolerate same for 2 weeks Pain: Pain Scale: 0-10 Ratin FINAL SPEECH RECOMMENDATIONS DIET: NPO for nutrition, hydration and medication. Occasional pleasure feeds as tolerated. Plan: [employer] Plan: No treatment needs identified at this time Discussed POC: Patient Discussed Risks/Benefits: Yes Patient/Caregiver Agreeable: Yes Education Provided: Results and recommendations per MBSS, with video review; recommendations and POC at this time. Verbal understanding and agreement given on all accounts. Treatment Provided Today: no Additional consult suggested: GI for evaluation / treatment of esophagus as indicated Repeat study/ dc plan: n/a Mechanics of the Swallow Summary: ORAL PHASE: Lip Closure - Interlabial escape/no progression to anterior lip Tongue Control During Bolus Hold - Escape to lateral buccal cavity and/or floor of mouth Bolus prep/mastication - Mastication not assessed Bolus transport/lingual motion - Brisk tongue motion for A-P movement of the bolus Oral residue - Residue collection on oral structure PHARYNGEAL PHASE: Initiation of pharyngeal swallow - Bolus head at vallecular pit Soft palate elevation - No bolus between soft palate/pharyngeal wall Laryngeal elevation - Complete superior movement of thyroid cartilage with contact of arytenoids to epiglottic petiole Anterior hyoid excursion - Partial anterior movement Epiglottic movement - Complete inversion Laryngeal vestibule closure - Complete - no air/contrast in laryngeal vestibule Pharyngeal stripping wave - Present, however, diminished Pharyngeal contraction (A/P view) - Not tested Pharyngoesophageal segment opening - Partial distension/partial duration with partial obstruction of flow of bolus Tongue base retraction - Trace column of contrast or air between tongue base and pharyngeal wall Pharyngeal residue - Trace residue within or on the pharyngeal structures ESOPHAGEAL PHASE: Esophageal clearance - Minimal to no esophageal clearance [employer] Impressions with Severity Rating: Pt presents with no significant oropharyngeal dysphagia upon completion of modified barium swallow study this date. Swallowing physiology is detailed above. Severe esophageal dysphagia apparent. OUTCOME MEASURES: Functional Oral Intake Scale Functional Oral Intake Scale: Level 2 tube dependent with minimal attempts of food and liquid Rosenbek's Penetration Aspiration Scale Thin Liquids: 2. PENETRATION that CLEARS - contrast enter airway, above vocal cords, no residue [place] Thick Liquids: 2. PENETRATION that CLEARS - contrast enter airway, above vocal cords, no residue Honey Thick Liquids: 1. NO ASPIRATION & NO PENETRATION - no aspiration, contrast does not enter airway Speech Therapy section of this report signed by Tami Neely MS, CCC/[employer] on 03/29/2024 at 9:08 am. 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 Age indeterminate mild T12 anterior wedging. Radiology section of this report signed by Dr. Kelsey Farias DO. IMPRESSION: Modified barium swallow study as detailed within the report. MACRO: None Signed by: Kelsey Farias 03/29/2024 5:37 PM Dictation workstation: [id number] [facility] Work Phone: Radiology Study observation (narrative) [facility] Work Phone: RF videography Hypopharynx a nd Esophagus Views for swallowing function W speech and W barium contrast POOrdered By: Kelsey Farias on 03-29-2024 [facility] Work Phone: Renal function 2000 panelon 03-29-2024 Albumin BCP dye [Mass/Vol] 3.7 g/dL 3.4 - 5.0 g/dL [facility] Anion gap [Moles/Vol] 14 mmol/L 10 - 2 0 mmol/L [facility] Calcium [Mass/Vol] 7.8 mg/dL Low 8.6 - 10. 3 mg/dL [facility] Comment on above: hx checked Chloride [Moles/Vol] 104 mmol/L 98 - 10 7 mmol/L [facility] CO2 [Moles/Vol] 28 mmol/L 21 - 32 mmol/L [facility] Creatinine [Mass/Vol] 0.96 mg/dL 0.50 - 1.05 mg/dL [facility] GFR/1.73 sq M.predicted among non-blacks MDRD (S/P/Bld) [Vol rate/Area] 58 mL/min/{1.73_m2} Low - PINF [facility] Comment on above: Calculations of dave mated GFR are performed using the 2020 CKD-EPI Study Refit equation without the race variable for the IDMS-Traceable creatinine methods. https://jasn.asnjournals.org/content/early/ASN.2020 743387 Glucose [Mass/Vol] 96 mg/dL 74 - 99 mg/dL [facility] Interpretation and review of laboratory results Abnormal [facility] Phosphate [Mass/Vol] 4.6 mg/dL 2.5 - 4 .9 mg/dL [facility] Comment on above: The performance marin acteristics of phosphorus testing in heparinized plasma have been validated by the individual laboratory site where testing is performed. Testing on heparinized plasma is not approved by the FDA; however, such approval is not necessary. Potassium [Moles/Vol] 4.5 mmol/L 3.5 - 5.3 mmol/L [facility] Sodium [Moles/Vol] 141 mmol/L 136 - 145 mmol/L [facility] Urea nitrogen [Mass/Vol] 24 mg/dL High 6 - 23 mg/dL [facility] Albumin BCP dye [Mass/Vol] 3.7 g/dL Normal 3.4-5.0 [facility] Comment on above: Performed By: #### 2 4362-6 #### LARISA Dominguez ([id number]) [facility] ([facility]) [address] [place] [address] Anion gap [Moles/Vol] 14 mmol/L Normal 10-20 [facility] Comment on above: Performed By: #### 2 4362-6 #### LARISA Dominguez ([id number]) [facility] ([facility]) [address] [place] [address] Calcium [Mass/Vol] 7.8 mg/dL Low 8.6-10.3 [facility] Comment on above: Result Comment: hx c hecked Performed By: #### 2 4362-6 #### LARISA Dominguez ([id number]) [facility] ([facility]) [address] [place] [address] Chloride [Moles/Vol] 104 mmol/L Normal 98-107 [facility] Comment on above: Performed By: #### 2 4362-6 #### LARISA Dominguez ([id number]) [facility] ([facility]) [address] [place] [address] CO2 [Moles/Vol] 28 mmol/L Normal 21-32 [facility] Comment on above: Performed By: #### 2 4362-6 #### LARISA Dominguez ([id number]) [facility] ([facility]) [address] [place] [address] Creatinine [Mass/Vol] 0.96 mg/dL Normal 0.50-1.05 [facility] Comment on above: Performed By: #### 2 4362-6 #### LARISA Dominguez ([id number]) [facility] ([facility]) [address] [place] [address] Glomerular filtration rate/1.73 sq M.predicted 58 mL/min/1.73m*2 Low >60 [facility] Comment on above: Result Comment: Calc ulations of estimated GFR are performed using the 2020 CKD-EPI Study Refit equation without the race variable for the IDMS-Traceable creatinine methods. https://jasn.asnjournals.org/content/early//ASN.2020 127693 Performed By: #### 2 4362-6 #### LARISA Dominguez ([id number]) [facility] ([facility]) [address] [place] [address] Glucose [Mass/Vol] 96 mg/dL Normal 74-99 [facility] Comment on above: Performed By: #### 2 4362-6 #### LARISA Dominguez ([id number]) [facility] ([facility]) [address] [place] [address] Phosphate [Mass/Vol] 4.6 mg/dL Normal 2.5-4.9 [facility] Comment on above: Result Comment: The performance characteristics of phosphorus testing in heparinized plasma have been validated by the individual laboratory site where testing is performed. Testing on heparinized plasma is not approved by the FDA; however, such approval is not necessary. Performed By: #### 2 4362-6 #### LARISA Dominguez ([id number]) [facility] ([facility]) [address] [place] [address] Potassium [Moles/Vol] 4.5 mmol/L Normal 3.5-5.3 [facility] Comment on above: Performed By: #### 2 4362-6 #### LARISA Dominguez ([id number]) [facility] ([facility]) [address] [facility] [place] [address] Sodium [Moles/Vol] 141 mmol/L Normal 136-145 [facility] Comment on above: Performed By: #### 2 4362-6 #### LARISA Dominguez ([id number]) [facility] ([facility]) [address] [place] [address] Urea nitrogen [Mass/Vol] 24 mg/dL High 6-23 [facility] Comment on above: Performed By: #### 2 4362-6 #### LARISA Dominguez ([id number]) [facility] ([facility]) [address] [place] [address] CBC W Auto Differential pane l (Bld)on 03-28-2024 Basophils (Bld) [#/Vol] 0.05 10*3/uL [facility] Basophils/100 WBC (Bld) 0.7 % 0.0 - 2.0 % [facility] Eosinophils (Bld) [#/Vol] 0.18 10*3/uL [facility] Eosinophils/100 WBC (Bld) 2.5 % 0.0 - 6.0 % [facility] Erythrocyte distribution width (RBC) [Ratio] 14.8 % High 11.5 - 14.5 % [facility] Hematocrit (Bld) [Volume fraction] 34.6 % Low 36.0 - 46.0 % [facility] Hemoglobin (Bld) [Mass/Vol] 10.4 g/dL Low 12.0 - 16.0 g/dL [facility] Immature granulocytes (Bld) [#/Vol] 0.04 10*3/uL [facility] Immature granulocytes/100 WBC (Bld) 0.6 % 0.0 - 0.9 % [facility] Comment on above: Immature Granulocyte Count (IG) includes promyelocytes, myelocytes and metamyelocytes but does not include bands. Percent differential counts (%) should be interpreted in the context of the absolute cell counts (cells/UL). Interpretation and review of laboratory results Abnormal [facility] Lymphocytes (Bld) [#/Vol] 1.40 10*3/uL [facility] Lymphocytes/100 WBC (Bld) 19.6 % 13.0 - 44.0 % [facility] MCH (RBC) [Entitic mass] 27.2 pg 26.0 - 34.0 pg [facility] MCHC (RBC) [Mass/Vol] 30.1 g/dL Low 32.0 - 36.0 g/dL [facility] MCV (RBC) [Entitic vol] 90 fL 80 - 100 fL [facility] Monocytes (Bld) [#/Vol] 0.70 10*3/uL [facility] Monocytes/100 WBC (Bld) 9.8 % 2.0 - 10.0 % [facility] Neutrophils (Bld) [#/Vol] 4.77 10*3/uL [facility] Comment on above: Percent differential counts (%) should be interpreted in the context of the absolute cell counts (cells/uL). Neutrophils/100 WBC (Bld) 66.8 % 40.0 - 80.0 % [facility] Nucleated RBC/100 WBC (Bld) [Ratio] 0.0 % [facility] Platelets (Bld) [#/Vol] 324 10*3/uL [facility] RBC (Bld) [#/Vol] 3.83 10*6/uL Low [facility] WBC (Bld) [#/Vol] 7.1 10*3/uL [facility] Basophils (Bld) [#/Vol] 0.05 x10*3/uL Normal 0.00-0.10 [facility] Comment on above: Performed By: #### 5 7021-8 #### LARISA Dominguez ([id number]) [facility] ([facility]) [address] [place] [address] Basophils/100 WBC (Bld) 0.7 % Normal 0.0-2.0 [facility] Comment on above: Performed By: #### 5 7021-8 #### LARISA Dominguez ([id number]) [facility] ([facility]) [address] [place] [address] Eosinophils (Bld) [#/Vol] 0.18 x10*3/uL Normal 0.00-0.40 [facility] Comment on above: Performed By: #### 5 7021-8 #### LARISA Dominguez ([id number]) [facility] ([facility]) [address] [place] [address] Eosinophils/100 WBC (Bld) 2.5 % Normal 0.0-6.0 [facility] Comment on above: Performed By: #### 5 7021-8 #### LARISA Dominguez ([id number]) [facility] ([facility]) [address] [place] [address] Erythrocyte distribution width (RBC) [Ratio] 14.8 % High 11.5-14.5 [facility] Comment on above: Performed By: #### 5 7021-8 #### LARISA Dominguez ([id number]) [facility] ([facility]) [address] [place] [address] Hematocrit (Bld) [Volume fraction] 34.6 % Low 36.0-46.0 [facility] Comment on above: Performed By: #### 5 7021-8 #### LARISA Dominguez ([id number]) [facility] ([facility]) [address] [place] [address] Hemoglobin (Bld) [Mass/Vol] 10.4 g/dL Low 12.0-16.0 [facility] Comment on above: Performed By: #### 5 7021-8 #### LARISA Dominguez ([id number]) [facility] ([facility]) [address] [place] [address] Immature granulocytes (Bld) [#/Vol] 0.04 x10*3/uL Normal 0.00-0.50 [facility] Comment on above: Performed By: #### 5 7021-8 #### LARISA Dominguez ([id number]) [facility] ([facility]) [address] [place] [address] Immature granulocytes/100 WBC (Bld) 0.6 % Normal 0.0-0.9 [facility] Comment on above: Result Comment: Whitney ture Granulocyte Count (IG) includes promyelocytes, myelocytes and metamyelocytes but does not include bands. Percent differential counts (%) should be interpreted in the context of the absolute cell counts (cells/UL). Performed By: #### 5 7021-8 #### LARISA Dominguez ([id number]) [facility] ([facility]) [address] [place] [address] Lymphocytes (Bld) [#/Vol] 1.40 x10*3/uL Normal 0.80-3.00 [facility] Comment on above: Performed By: #### 5 7021-8 #### LARISA Dominguez ([id number]) [facility] ([facility]) [address] [facility] [place] [address] Lymphocytes/100 WBC (Bld) 19.6 % Normal 13.0-44.0 [facility] Comment on above: Performed By: #### 5 7021-8 #### LARISA Dominguez ([id number]) [facility] ([facility]) [address] [address] MCH (RBC) [Entitic mass] 27.2 pg Normal 26.0-34.0 [facility] Comment on above: Performed By: #### 5 7021-8 #### LARISA Dominguez ([id number]) [facility] ([facility]) [address] [place] [address] MCHC (RBC) [Mass/Vol] 30.1 g/dL Low 32.0-36.0 [facility] Comment on above: Performed By: #### 5 7021-8 #### LARISA Dominguez ([id number]) [facility] ([facility]) [address] [facility] [address] [address] [address] MCV (RBC) [Entitic vol] 90 fL Normal 80-100 [facility] Comment on above: Performed By: #### 5 7021-8 #### LARISA Dominguez ([id number]) [facility] ([facility]) [address] [place] [address] Monocytes (Bld) [#/Vol] 0.70 x10*3/uL Normal 0.05-0.80 [facility] Comment on above: Performed By: #### 5 7021-8 #### LARISA Dominguez ([id number]) [facility] ([facility]) [address] [place] [address] Monocytes/100 WBC (Bld) 9.8 % Normal 2.0-10.0 [facility] Comment on above: Performed By: #### 5 7021-8 #### LARISA Dominguez ([id number]) [facility] ([facility]) [address] [place] [address] Neutrophils (Bld) [#/Vol] 4.77 x10*3/uL Normal 1.60-5.50 [facility] Comment on above: Result Comment: Perc ent differential counts (%) should be interpreted in the context of the absolute cell counts (cells/uL). Performed By: #### 5 7021-8 #### LARISA Dominguez ([id number]) [facility] ([facility]) [address] [place] [address] Neutrophils/100 WBC (Bld) 66.8 % Normal 40.0-80.0 [facility] Comment on above: Performed By: #### 5 7021-8 #### LARISA Dominguez ([id number]) [facility] ([facility]) [address] [place] [address] Nucleated RBC/100 WBC (Bld) [Ratio] 0.0 /100 WBCs Normal 0.0-0.0 [facility] Comment on above: Performed By: #### 5 7021-8 #### LARISA Dominguez ([id number]) [facility] ([facility]) [address] [facility] [place] [address] Platelets (Bld) [#/Vol] 324 x10*3/uL Normal 150-450 [facility] Comment on above: Performed By: #### 5 7021-8 #### LARISA Dominguez ([id number]) [facility] ([facility]) [address] [facility] [address] [address] RBC (Bld) [#/Vol] 3.83 x10*6/uL Low 4.00-5.20 [facility] Comment on above: Performed By: #### 5 7021-8 #### LARISA NATALIYA Dominguez ([id number]) [facility] ([facility]) [address] [place] [address] WBC (Bld) [#/Vol] 7.1 x10*3/uL Normal 4.4-11.3 [facility] Comment on above: Performed By: #### 5 7021-8 #### LARISA Dominguez ([id number]) [facility] ([facility]) [address] [place] [address] Comprehensive metabolic 2000 panelon 03-28-2024 Albumin BCP dye [Mass/Vol] 3.7 g/dL 3.4 - 5.0 g/dL [facility] ALP [Catalytic activity/Vol] 71 U/L 33 - 136 U/L [facility] ALT With P-5'-P [Catalytic activity/Vol] 6 U/L Low 7 - 45 U/L [facility] Comment on above: Patients treated wit h Sulfasalazine may generate falsely decreased results for ALT. Anion gap [Moles/Vol] 14 mmol/L 10 - 2 0 mmol/L [facility] AST With P-5'-P [Catalytic activity/Vol] 17 U/L 9 - 39 U/L [facility] Bilirubin [Mass/Vol] 0.4 mg/dL 0.0 - 1 .2 mg/dL [facility] Calcium [Mass/Vol] 9.3 mg/dL 8.6 - 10. 3 mg/dL [facility] Chloride [Moles/Vol] 103 mmol/L 98 - 10 7 mmol/L [facility] CO2 [Moles/Vol] 29 mmol/L 21 - 32 mmol/L [facility] Creatinine [Mass/Vol] 1.10 mg/dL High 0.50 - 1.05 mg/dL [facility] GFR/1.73 sq M.predicted among non-blacks MDRD (S/P/Bld) [Vol rate/Area] 50 mL/min/{1.73_m2} Low - PINF [facility] Comment on above: Calculations of dave mated GFR are performed using the 2020 CKD-EPI Study Refit equation without the race variable for the IDMS-Traceable creatinine methods. https://jasn.asnjournals.org/content//ASN.2020 779667 Glucose [Mass/Vol] 94 mg/dL 74 - 99 mg/dL [facility] Potassium [Moles/Vol] 4.9 mmol/L 3.5 - 5.3 mmol/L [facility] Protein [Mass/Vol] 7.0 g/dL 6.4 - 8.2 g/dL [facility] Sodium [Moles/Vol] 141 mmol/L 136 - 145 mmol/L [facility] Urea nitrogen [Mass/Vol] 25 mg/dL High 6 - 23 mg/dL [facility] Albumin BCP dye [Mass/Vol] 3.7 g/dL Normal 3.4-5.0 [facility] Comment on above: Performed By: #### 2 4323-8 #### LARISA Dominguez ([id number]) [facility] ([facility]) [address] [place] [address] ALP [Catalytic activity/Vol] 71 U/L Normal 33-136 [facility] Comment on above: Performed By: #### 2 4323-8 #### LARISA Dominguez ([id number]) [facility] ([facility]) [address] [place] [address] ALT With P-5'-P [Catalytic activity/Vol] 6 U/L Low 7-45 [facility] Comment on above: Result Comment: Nery ents treated with Sulfasalazine may generate falsely decreased results for ALT. Performed By: #### 2 4323-8 #### LARISA Dominguez ([id number]) [facility] ([facility]) [address] [place] [address] Anion gap [Moles/Vol] 14 mmol/L Normal 10-20 [facility] Comment on above: Performed By: #### 2 4323-8 #### LARISA Dominguez ([id number]) [facility] ([facility]) [address] [place] [address] AST With P-5'-P [Catalytic activity/Vol] 17 U/L Normal 9-39 [facility] Comment on above: Performed By: #### 2 4323-8 #### LARISA Dominguez ([id number]) [facility] ([facility]) [address] [place] [address] Bilirubin [Mass/Vol] 0.4 mg/dL Normal 0.0-1.2 [facility] Comment on above: Performed By: #### 2 4323-8 #### LARISA Dominguez ([id number]) [facility] ([facility]) [address] [place] [address] Calcium [Mass/Vol] 9.3 mg/dL Normal 8.6-10.3 [facility] Comment on above: Performed By: #### 2 4323-8 #### LARISA Dominguez ([id number]) [facility] ([facility]) [address] [place] [address] Chloride [Moles/Vol] 103 mmol/L Normal 98-107 [facility] Comment on above: Performed By: #### 2 4323-8 #### LARISA Dominguez ([id number]) [facility] ([facility]) [address] [place] [address] CO2 [Moles/Vol] 29 mmol/L Normal 21-32 [facility] Comment on above: Performed By: #### 2 4323-8 #### LARISA Dominguez ([id number]) [facility] ([facility]) [address] [place] [address] Creatinine [Mass/Vol] 1.10 mg/dL High 0.50-1.05 [facility] Comment on above: Performed By: #### 2 4323-8 #### LARISA Dominguez ([id number]) [facility] ([facility]) [address] [place] [address] Glomerular filtration rate/1.73 sq M.predicted 50 mL/min/1.73m*2 Low >60 [facility] Comment on above: Result Comment: Calc ulations of estimated GFR are performed using the 2020 CKD-EPI Study Refit equation without the race variable for the IDMS-Traceable creatinine methods. https://jasn.asnjournals.org/content//ASN.2020 830800 Performed By: #### 2 4323-8 #### LARISA Dominguez ([id number]) [facility] ([facility]) [address] [place] [address] Glucose [Mass/Vol] 94 mg/dL Normal 74-99 [facility] Comment on above: Performed By: #### 2 4323-8 #### LARISA Dominguez ([id number]) [facility] ([facility]) [address] [place] [address] Potassium [Moles/Vol] 4.9 mmol/L Normal 3.5-5.3 [facility] Comment on above: Performed By: #### 2 4323-8 #### LARISA Dominguez ([id number]) [facility] ([facility]) [address] [place] [address] Protein [Mass/Vol] 7.0 g/dL Normal 6.4-8.2 [facility] Comment on above: Performed By: #### 2 4323-8 #### LARISA Dominguez ([id number]) [facility] ([facility]) [address] [place] [address] Sodium [Moles/Vol] 141 mmol/L Normal 136-145 [facility] Comment on above: Performed By: #### 2 4323-8 #### LARISA Dominguez ([id number]) [facility] ([facility]) [address] [place] [address] Urea nitrogen [Mass/Vol] 25 mg/dL High 6-23 [facility] Comment on above: Performed By: #### 2 4323-8 #### LARISA Dominguez ([id number]) [facility] ([facility]) [address] [place] [address] ECG 12-LEADon 03-28-2024 ECG 12-LEAD Ventricular Rate 71 Atrial Rate 71 P-R Interval 128 QRS Duration 80 Q-T Interval 412 QTC Calculation(Bazett) 447 P Ashland 60 R Ashland 67 T [place] 58 QRS Count 11 Q Onset 221 P Onset 157 P Offset 196 T Offset 427 QTC Fredericia 436 Diagnosis Normal sinus rhythm Left ventricular hypertrophy with repolarization abnormality Cannot rule out Septal infarct , age undetermined Abnormal ECG When compared with ECG of 28-MAR-2024 11:41, (unconfirmed) Sinus rhythm has replaced Electronic atrial pacemaker QRS axis Shifted right Confirmed by Noe Mtz ([id number]) on 04/08/2024 7:13:12 PM Normal [facility] ECG 12-LEAD Ventricular Rate 67 Atrial Rate 67 P-R Interval 188 QRS Duration 78 Q-T Interval 418 QTC Calculation(Bazett) 441 P Ashland -24 R Ashland -40 T Ashland 30 QRS Count 11 Q Onset 224 P Onset 134 P Offset 195 T Offset 433 QTC Fredericia 434 Diagnosis Atrial-paced rhythm Left axis deviation Voltage criteria for left ventricular hypertrophy Abnormal ECG When compared with ECG of 03-JUL-2020 15:36, QRS axis Shifted left See ED provider note for full interpretation and clinical correlation Confirmed by Tami Barragan ([id number]) on 03/29/2024 6:06:09 PM Normal [facility] FL MODIFIED BARIUM SWALLOW S Jennifer 03-28-2024 FL MODIFIED BARIUM SWALLOW STUDY Interpreted By: Kelsey Farias and Mayer Katherine STUDY: [place] MODIFIED BARIUM SWALLOW STUDY;; 03/29/2024 8:59 am INDICATION: Signs/Symptoms:Dysphagi a. COMPARISON: Chest radiographs 03/28/2024 ACCESSION NUMBER(S): [id number] ORDERING CLINICIAN: DONNIE THORPE TECHNIQUE: Modified Barium Swallow Study completed. Informed verbal consent obtained prior to completion of exam. Trials of thin, nectar/mildly thick liquid, honey/moderately thick liquid, puree solids were given. 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 Recent dilation of esophagus. Respiratory Status: Room air Current diet: pleasure feeds only, unable to tolerate same for 2 weeks Pain: Pain Scale: 0-10 Ratin FINAL SPEECH RECOMMENDATIONS DIET: NPO for nutrition, hydration and medication. Occasional pleasure feeds as tolerated. Plan: [employer] Plan: No treatment needs identified at this time Discussed POC: Patient Discussed Risks/Benefits: Yes Patient/Caregiver Agreeable: Yes Education Provided: Results and recommendations per MBSS, with video review; recommendations and POC at this time. Verbal understanding and agreement given on all accounts. Treatment Provided Today: no Additional consult suggested: GI for evaluation / treatment of esophagus as indicated Repeat study/ dc plan: n/a Mechanics of the Swallow Summary: ORAL PHASE: Lip Closure - Interlabial escape/no progression to anterior lip Tongue Control During Bolus Hold - Escape to lateral buccal cavity and/or floor of mouth Bolus prep/mastication - Mastication not assessed Bolus transport/lingual motion - Brisk tongue motion for A-P movement of the bolus Oral residue - Residue collection on oral structure PHARYNGEAL PHASE: Initiation of pharyngeal swallow - Bolus head at vallecular pit Soft palate elevation - No bolus between soft palate/pharyngeal wall Laryngeal elevation - Complete superior movement of thyroid cartilage with contact of arytenoids to epiglottic petiole Anterior hyoid excursion - Partial anterior movement Epiglottic movement - Complete inversion Laryngeal vestibule closure - Complete - no air/contrast in laryngeal vestibule Pharyngeal stripping wave - Present, however, diminished Pharyngeal contraction (A/P view) - Not tested Pharyngoesophageal segment opening - Partial distension/partial duration with partial obstruction of flow of bolus Tongue base retraction - Trace column of contrast or air between tongue base and pharyngeal wall Pharyngeal residue - Trace residue within or on the pharyngeal structures ESOPHAGEAL PHASE: Esophageal clearance - Minimal to no esophageal clearance [employer] Impressions with Severity Rating: Pt presents with no significant oropharyngeal dysphagia upon completion of modified barium swallow study this date. Swallowing physiology is detailed above. Severe esophageal dysphagia apparent. OUTCOME MEASURES: Functional Oral Intake Scale Functional Oral Intake Scale: Level 2 tube dependent with minimal attempts of food and liquid Rosenbek's Penetration Aspiration Scale Thin Liquids: 2. PENETRATION that CLEARS - contrast enter airway, above vocal cords, no residue [place] Thick Liquids: 2. PENETRATION that CLEARS - contrast enter airway, above vocal cords, no residue Honey Thick Liquids: 1. NO ASPIRATION & NO PENETRATION - no aspiration, contrast does not enter airway Speech Therapy section of this report signed by Tami Neely MS, [facility]/[employer] on 03/29/2024 at 9:08 am. 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 Age indeterminate mild T12 anterior wedging. Radiology section of this report signed by Dr. Kelsey Farias DO. IMPRESSION: Modified barium swallow study as detailed within the report. MACRO: None Signed by: Kelsey Farias 03/29/2024 5:37 PM Dictation workstation: [id number] Normal [facility] Glucose Test strip manual (B ld) [Mass/Vol]on 03-28-2024 Glucose [Mass/Vol] 99 mg/dL 74 - 99 mg/dL [facility] Interpretation and review of laboratory results Normal [facility] Glucose [Mass/Vol] 99 mg/dL Normal 74-99 [facility] Comment on above: Performed By: #### 2 341-6 #### LARISA Dominguez ([id number]) [facility] ([facility]) [address] [place] [address] Magnesiumon 03-28-2024 Magnesium [Mass/Vol] 2.59 mg/dL High 1.60 - 2.40 mg/dL [facility] Magnesium [Mass/Vol] 2.59 mg/dL High 1.60-2.40 [facility] Comment on above: Performed By: #### 1 9123-9 #### LARISA Doimnguez ([id number]) [facility] ([facility]) [address] [place] [address] No Panel Informationon 03-28 Interpretation and review of laboratory results Abnormal [facility] Tropinin I.cardiac panel Hig h sensitivity methodon 03-28-2024 Interpretation and review of laboratory results Normal [facility] Less than 99th percentile of normal range cutoff- Female and children under 18 years old <14 ng/L; Male <21 ng/L: Negative Repeat testing should be performed if clinically indicated. Female and children under 18 years old 14-50 ng/L; Male 21-50 ng/L: Consistent with possible cardiac damage and possible increased clinical risk. Serial measurements may help to assess extent of myocardial damage. >50 ng/L: Consistent with cardiac damage, increased clinical risk and myocardial infarction. Serial measurements may help assess extent of myocardial damage. NOTE: Children less than 1 year old may have higher baseline troponin levels and results should be interpreted in conjunction with the overall clinical context. NOTE: Troponin I testing is performed using a different testing methodology at [facility] than at [facility]. Direct result comparisons should only be made within the same method. [facility] Interpretation and review of laboratory results Normal [facility] Less than 99th percentile of normal range cutoff- Female and children under 18 years old <14 ng/L; Male <21 ng/L: Negative Repeat testing should be performed if clinically indicated. Female and children under 18 years old 14-50 ng/L; Male 21-50 ng/L: Consistent with possible cardiac damage and possible increased clinical risk. Serial measurements may help to assess extent of myocardial damage. >50 ng/L: Consistent with cardiac damage, increased clinical risk and myocardial infarction. Serial measurements may help assess extent of myocardial damage. NOTE: Children less than 1 year old may have higher baseline troponin levels and results should be interpreted in conjunction with the overall clinical context. NOTE: Troponin I testing is performed using a different testing methodology at [facility] than at [facility]. Direct result comparisons should only be made within the same method. [facility] Troponin I, High Sensitivity , Initialon 03-28-2024 Tropinin I.cardiac panel High sensitivity method 13 ng/L 0 - 13 ng/L [facility] Troponin I.cardiac panelon 0 03-28-2024 Tropinin I.cardiac panel High sensitivity method 12 ng/L Normal 0-13 [facility] Comment on above: Order Comment: Less than 99th percentile of normal range cutoff- Female and children under 18 years old <14 ng/L; Male <21 ng/L: Negative Repeat testing should be performed if clinically indicated. Female and children under 18 years old 14-50 ng/L; Male 21-50 ng/L: Consistent with possible cardiac damage and possible increased clinical risk. Serial measurements may help to assess extent of myocardial damage. >50 ng/L: Consistent with cardiac damage, increased clinical risk and myocardial infarction. Serial measurements may help assess extent of myocardial damage. NOTE: Children less than 1 year old may have higher baseline troponin levels and results should be interpreted in conjunction with the overall clinical context. NOTE: Troponin I testing is performed using a different testing methodology at [facility] than at other [facility]. Direct result comparisons should only be made within the same method. Performed By: #### 8 9577-1 #### LARISA Dominguez ([id number]) [facility] ([facility]) [address] [place] [address] Tropinin I.cardiac panel High sensitivity method 13 ng/L Normal 0-13 [facility] Comment on above: Order Comment: Less than 99th percentile of normal range cutoff- Female and children under 18 years old <14 ng/L; Male <21 ng/L: Negative Repeat testing should be performed if clinically indicated. Female and children under 18 years old 14-50 ng/L; Male 21-50 ng/L: Consistent with possible cardiac damage and possible increased clinical risk. Serial measurements may help to assess extent of myocardial damage. >50 ng/L: Consistent with cardiac damage, increased clinical risk and myocardial infarction. Serial measurements may help assess extent of myocardial damage. NOTE: Children less than 1 year old may have higher baseline troponin levels and results should be interpreted in conjunction with the overall clinical context. NOTE: Troponin I testing is performed using a different testing methodology at [facility] than at other [facility]. Direct result comparisons should only be made within the same method. Performed By: #### 8 9577-1 #### LARISA Dominguez ([id number]) [facility] ([facility]) [address] [place] [address] Troponin, High Sensitivity, 1 Houron 03-28-2024 Tropinin I.cardiac panel High sensitivity method 12 ng/L 0 - 13 ng/L [facility] XR CHEST 1 VIEWon 03-28-2024 XR CHEST 1 VIEW Interpreted By: Reyna Jin, STUDY: XR CHEST 1 VIEW; 03/28/2024 2:17 pm INDICATION: Signs/Symptoms:difficul ty swallowing. COMPARISON: 11/29/2021. ACCESSION NUMBER(S): [id number] ORDERING CLINICIAN: MALORIE MALDONADO FINDINGS: CARDIOMEDIASTINAL SILHOUETTE: Aortic stent is now seen extending from the proximal ascending aorta level to the distal descending aorta level. Cardiac silhouette is enlarged. Left-sided dual lead cardiac pacing device again seen. Coronary artery calcifications and/or stents again seen. LUNGS: Inspiratory volume is lower. Irregular interstitial thickening is present throughout both lungs. Mild bibasilar atelectasis or scarring is present. No definite pleural effusion. No appreciable pneumothorax. ABDOMEN: No remarkable upper abdominal findings. BONES: Lower thoracic mild dextrocurvature is present. Degenerative changes of the shoulders are partially visualized. IMPRESSION: 1. Cardiomegaly. Ascending and descending aortic stent now present. 2. Irregular interstitial thickening bilaterally may be chronic. Interstitial edema and atypical infection not excluded. 3. Mild bibasilar atelectasis or scarring. MACRO: None. Signed by: Reyna Jin 03/28/2024 2:47 PM Dictation workstation: [id number] [facility] XR Chest Single viewon 03-28 1. Cardiomegaly. Ascending and descending aortic stent now present. 2. Irregular interstitial thickening bilaterally may be chronic. Interstitial edema and atypical infection not excluded. 3. Mild bibasilar atelectasis or scarring. MACRO: None. Signed by: Reyna Jin 03/28/2024 2:47 PM Dictation workstation: [id number] MMODAL Interpreted By: Reyna Jin, STUDY: XR CHEST 1 VIEW; 03/28/2024 2:17 pm INDICATION: Signs/Symptoms:difficul ty swallowing. COMPARISON: 11/29/2021. ACCESSION NUMBER(S): [id number] ORDERING CLINICIAN: MALORIE MALDONADO FINDINGS: CARDIOMEDIASTINAL SILHOUETTE: Aortic stent is now seen extending from the proximal ascending aorta level to the distal descending aorta level. Cardiac silhouette is enlarged. Left-sided dual lead cardiac pacing device again seen. Coronary artery calcifications and/or stents again seen. LUNGS: Inspiratory volume is lower. Irregular interstitial thickening is present throughout both lungs. Mild bibasilar atelectasis or scarring is present. No definite pleural effusion. No appreciable pneumothorax. ABDOMEN: No remarkable upper abdominal findings. BONES: Lower thoracic mild dextrocurvature is present. Degenerative changes of the shoulders are partially visualized. [facility] Reyna Jin MD - 03/28/2024 Interpreted By: Reyna Jin, STUDY: XR CHEST 1 VIEW; 03/28/2024 2:17 pm INDICATION: Signs/Symptoms:difficul ty swallowing. COMPARISON: 11/29/2021. ACCESSION NUMBER(S): [id number] ORDERING CLINICIAN: MALORIE MALDONADO FINDINGS: CARDIOMEDIASTINAL SILHOUETTE: Aortic stent is now seen extending from the proximal ascending aorta level to the distal descending aorta level. Cardiac silhouette is enlarged. Left-sided dual lead cardiac pacing device again seen. Coronary artery calcifications and/or stents again seen. LUNGS: Inspiratory volume is lower. Irregular interstitial thickening is present throughout both lungs. Mild bibasilar atelectasis or scarring is present. No definite pleural effusion. No appreciable pneumothorax. ABDOMEN: No remarkable upper abdominal findings. BONES: Lower thoracic mild dextrocurvature is present. Degenerative changes of the shoulders are partially visualized. IMPRESSION: 1. Cardiomegaly. Ascending and descending aortic stent now present. 2. Irregular interstitial thickening bilaterally may be chronic. Interstitial edema and atypical infection not excluded. 3. Mild bibasilar atelectasis or scarring. MACRO: None. Signed by: Reyna Jin 03/28/2024 2:47 PM Dictation workstation: [id number] [facility] Work Phone: Radiology Study observation (narrative) [facility] Work Phone: XR Chest Single viewOrdered By: Reyna Jin on 03-28-2024 [facility] Work Phone: BASIC METABOLIC PANLon 01-18 Anion gap [Moles/Vol] 8 mmol/L Normal 5-15 [facility] Comment on above: Performed By: #### C BCA, 2777-, 97685-2, BMP #### [facility] ([id number]) [address], [address] [place] [address] Calcium [Mass/Vol] 8.0 mg/dL Low 8.5-10.5 [facility] Comment on above: Performed By: #### C BCA, 2777-, 91656-8, BMP #### [facility] ([id number]) [address], [address] [place] [address] Chloride [Moles/Vol] 108 mmol/L Normal 98-109 [facility] Comment on above: Performed By: #### C MIRTA, 2776-08, , BMP #### [facility] ([id number]) [address], [address] [place] [address] CO2 [Moles/Vol] 25 mmol/L Normal 22-32 [facility] Comment on above: Performed By: #### C MIRTA, 2776-08, , BMP #### [facility] ([id number]) [address], [address] [place] [address] Creatinine [Mass/Vol] 0.65 mg/dL Normal 0.40-1.00 [facility] Comment on above: Result Comment: METH OD TRACEABLE TO IDMS STANDARD Performed By: #### C MIRTA, 2776-08, , BMP #### [facility] ([id number]) [address], [address] [place] [address] GFR/1.73 sq M.predicted among non-blacks MDRD (S/P/Bld) [Vol rate/Area] 87 mL/min/{1.73_m2} Normal >59 [facility] Comment on above: Result Comment: Reported eGFR is based on the CKD-EPI 2020 equation that does not use a race coefficient. Performed By: #### C MIRTA, 2776-08, , BMP #### [facility] ([id number]) [address], [address] [place] [address] Glucose [Mass/Vol] 91 mg/dL Normal 65-99 [facility] Comment on above: Performed By: #### C MIRTA, 2776-08, , BMP #### [facility] ([id number]) [address], [address] [place] [address] Potassium [Moles/Vol] 3.2 mmol/L Low 3.5-5.0 [facility] Comment on above: Performed By: #### Lawrence KIRBY, 2776-08, , BMP #### [facility] ([id number]) [address], [address] [place] [address] Sodium [Moles/Vol] 141 mmol/L Normal 134-146 [facility] Comment on above: Performed By: #### Lawrence KIRBY, 2776-08, , BMP #### [facility] ([id number]) [address], [address] [place] [address] Urea nitrogen [Mass/Vol] 9 mg/dL Normal 5-27 [facility] Comment on above: Performed By: #### Lawrence KIRBY, 2776-08, , BMP #### [facility] ([id number]) [address], [address] [place] [address] CBC AND AUTO DIFFon 01-19-20 24 ABSOLUTE BASOPHIL 0.0 X10E9/L Normal 0.0-0.2 [facility] Comment on above: Performed By: #### Lawrence KIRBY, 2776-08, , BMP #### [facility] ([id number]) [address], [address] [place] [address] ABSOLUTE NEUTROPHIL 3.9 X10E9/L Normal 1.5-6.6 [facility] Comment on above: Performed By: #### Lawrence KIRBY, 2776-08, , BMP #### [facility] ([id number]) [address], [address] [place] [address] Basophils/100 WBC (Bld) 0.7 % Normal [facility] Comment on above: Performed By: #### Lawrence KIRBY, 2776-08, , BMP #### [facility] ([id number]) [address], [address] [place] [address] Eosinophils (Bld) [#/Vol] 0.2 10*3/uL Normal 0.0-0.4 [facility] Comment on above: Performed By: #### Lawrence KIRBY, 2776-08, , BMP #### [facility] ([id number]) [address], [facility] [address] [place] [address] Eosinophils/100 WBC (Bld) 3.0 % Normal [facility] Comment on above: Performed By: #### Lawrence KIRBY, 2776-08, , BMP #### [facility] ([id number]) [address], [facility] [address] [place] [address] Erythrocyte distribution width (RBC) [Ratio] 17.0 % High 11.5-15.0 [facility] Comment on above: Performed By: #### Lawrence KIRBY, 2776-08, , BMP #### [facility] ([id number]) [address], [facility] [address] [place] [address] Hematocrit (Bld) [Volume fraction] 32.6 % Low 35-47 [facility] Comment on above: Performed By: #### Lawrence KIRBY, 2776-08, , BMP #### [facility] ([id number]) [address], [facility] [address] [place] [address] Hemoglobin (Bld) [Mass/Vol] 10.9 g/dL Low 11.7-15.5 [facility] Comment on above: Performed By: #### Lawrence KIRBY, 2776-08, , BMP #### [facility] ([id number]) [address], [facility] [address] [place] [address] Lymphocytes (Bld) [#/Vol] 1.4 10*3/uL Normal 1.0-3.5 [facility] Comment on above: Performed By: #### Lawrence KIRBY, 2776-08, , BMP #### [facility] ([id number]) [address], [address] [place] [address] Lymphocytes/100 WBC (Bld) 22.8 % Normal [facility] Comment on above: Performed By: #### Lawrence KIRBY, 2776-08, , BMP #### [facility] ([id number]) [address], [address] [place] [address] MCH (RBC) [Entitic mass] 30.6 pg Normal 27-34 [facility] Comment on above: Performed By: #### Lawrence KIRBY, 2776-08, , BMP #### [facility] ([id number]) [address], [address] [place] [address] MCHC (RBC) [Mass/Vol] 33.5 g/dL Normal 32-36 [facility] Comment on above: Performed By: #### Lawrence KIRBY, 2776-08, , BMP #### [facility] ([id number]) [address], [address] [place] [address] MCV (RBC) [Entitic vol] 91 fL Normal 80-[address] [facility] Comment on above: Performed By: #### Lawrence KIRBY, 2776-08, , BMP #### [facility] ([id number]) [address], [address] [place] [address] Monocytes (Bld) [#/Vol] 0.5 10*3/uL Normal 0-0.9 [facility] Comment on above: Performed By: #### Lawrence KIRBY, 2776-08, , BMP #### [facility] ([id number]) [address], [address] [place] [address] Monocytes/100 WBC (Bld) 8.0 % Normal P [facility] Comment on above: Performed By: #### Lawrence KIRBY, 2776-08, , BMP #### [facility] ([id number]) [address], [address] [place] [address] Neutrophils/100 WBC (Bld) 65.5 % Normal [facility] Comment on above: Performed By: #### Lawrence KIRBY, 2776-08, , BMP #### [facility] ([id number]) [address], [address] [place] [address] Platelet mean volume (Bld) [Entitic vol] 7.7 fL Normal 7-12 [facility] Comment on above: Performed By: #### Lawrence KIRBY, 2776-08, , BMP #### [facility] ([id number]) [address], [address] [place] [address] Platelets (Bld) [#/Vol] 186 10*3/uL Normal 150-450 [facility] Comment on above: Performed By: #### Lawrence KIRBY, 2776-08, , BMP #### [facility] ([id number]) [address], [address] [place] [address] RBC COUNT 3.57 X10E12/L Low 3.80-5.20 [facility] Comment on above: Performed By: #### Lawrence KIRBY, 2776-08, , BMP #### [facility] ([id number]) [address], [address] [place] [address] WBC (Bld) [#/Vol] 6.0 10*3/uL Normal 4.0-11.0 [facility] Comment on above: Performed By: #### Lawrence KIRBY, 2776-08, , BMP #### [facility] ([id number]) [address], [address] [place] [address] MAGNESIUMon 01-19-2024 Magnesium [Mass/Vol] 2.0 mg/dL Normal 1.8-2.6 [facility] Comment on above: Performed By: #### Lawrence KIRBY, 2777-1, , BMP #### [facility] ([id number]) [address], [address] [place] [address] PHOSPHORUSon 01-19-2024 Phosphate [Mass/Vol] 2.1 mg/dL Low 2.4-4.9 [facility] Comment on above: Performed By: #### C BCA, 277-, , BMP #### [facility] ([id number]) [address], [address] [place] [address] BASIC METABOLIC PANLon 01-17 Anion gap [Moles/Vol] 7 mmol/L Normal 5-15 [facility] Comment on above: Performed By: #### 2 777-1, BMP, , CBCA #### [facility] ([id number]) [address], [address] [place] [address] Calcium [Mass/Vol] 7.5 mg/dL Low 8.5-10.5 [facility] Comment on above: Performed By: #### 2 777-1, DURAN, , CBCA #### [facility] ([id number]) [address], [address] [place] [address] Chloride [Moles/Vol] 111 mmol/L High 98-109 [facility] Comment on above: Performed By: #### 2 777-1, BMP, , CBCA #### [facility] ([id number]) [address], [address] [place] [address] CO2 [Moles/Vol] 24 mmol/L Normal 22-32 [facility] Comment on above: Performed By: #### 2 777-1, BMP, , CBCA #### [facility] ([id number]) [address], [address] [place] [address] Creatinine [Mass/Vol] 0.64 mg/dL Normal 0.40-1.00 [facility] Comment on above: Result Comment: METH OD TRACEABLE TO IDMS STANDARD Performed By: #### 2 777-1, DURAN, , CBCA #### [facility] ([id number]) [address], [address] [place] [address] GFR/1.73 sq M.predicted among non-blacks MDRD (S/P/Bld) [Vol rate/Area] 87 mL/min/{1.73_m2} Normal >59 [facility] Comment on above: Result Comment: Reported eGFR is based on the CKD-EPI 2020 equation that does not use a race coefficient. Performed By: #### 2 777-1, DURAN, , CBCA #### [facility] ([id number]) [address], [address] [place] [address] Glucose [Mass/Vol] 101 mg/dL High 65-99 [facility] Comment on above: Performed By: #### 2 777-1, DURAN, , CBCA #### [facility] ([id number]) [address], [address] [place] [address] Potassium [Moles/Vol] 3.6 mmol/L Normal 3.5-5.0 [facility] Comment on above: Performed By: #### 2 777-1, DURAN, , CBCA #### [facility] ([id number]) [address], [address] [place] [address] Sodium [Moles/Vol] 142 mmol/L Normal 134-146 [facility] Comment on above: Performed By: #### 2 777-1, DURAN, , CBCA #### [facility] ([id number]) [address], [address] [place] [address] Urea nitrogen [Mass/Vol] 13 mg/dL Normal 5-27 [facility] Comment on above: Performed By: #### 2 777-1, [facility], , CBCA #### [facility] ([id number]) [address], [address] [place] [address] CBC AND AUTO DIFFon 01-18-20 24 ABSOLUTE BASOPHIL 0.0 X10E9/L Normal 0.0-0.2 [facility] Comment on above: Performed By: #### 2 777-1, [facility], , CBCA #### [facility] ([id number]) [address], [address] [place] [address] ABSOLUTE NEUTROPHIL 4.4 X10E9/L Normal 1.5-6.6 [facility] Comment on above: Performed By: #### 2 777-1, [facility], , CBCA #### [facility] ([id number]) [address], [address] [place] [address] Basophils/100 WBC (Bld) 0.5 % Normal [facility] Comment on above: Performed By: #### 2 777-1, [facility], , CBCA #### [facility] ([id number]) [address], [address] [place] [address] Eosinophils (Bld) [#/Vol] 0.1 10*3/uL Normal 0.0-0.4 [facility] Comment on above: Performed By: #### 2 777-1, [facility], , CBCA #### [facility] ([id number]) [address], [address] [place] [address] Eosinophils/100 WBC (Bld) 1.6 % Normal [facility] Comment on above: Performed By: #### 2 777-1, [facility], , CBCA #### [facility] ([id number]) [address], [address] [place] [address] Erythrocyte distribution width (RBC) [Ratio] 16.8 % High 11.5-15.0 [facility] Comment on above: Performed By: #### 2 777-1, [facility], , CBCA #### [facility] ([id number]) [address] [address] [place] [address] Hematocrit (Bld) [Volume fraction] 27.6 % Low 35-47 [facility] Comment on above: Performed By: #### 2 777-1, [facility], , CBCA #### [facility] ([id number]) [address] [address] Hemoglobin (Bld) [Mass/Vol] 9.5 g/dL Low 11.7-15.5 [facility] Comment on above: Performed By: #### 2 777-1, [facility], , CBCA #### [facility] ([id number]) [address] [address] Lymphocytes (Bld) [#/Vol] 1.2 10*3/uL Normal 1.0-3.5 [facility] Comment on above: Performed By: #### 2 777-1, [facility], , CBCA #### [facility] ([id number]) [address] [address] Lymphocytes/100 WBC (Bld) 19.2 % Normal [facility] Comment on above: Performed By: #### 2 777-1, [facility], , CBCA #### [facility] ([id number]) [address] [address] MCH (RBC) [Entitic mass] 31.1 pg Normal 27-34 [facility] Comment on above: Performed By: #### 2 777-1, [facility], , CBCA #### [facility] ([id number]) [address], [address] [place] [address] MCHC (RBC) [Mass/Vol] 34.3 g/dL Normal 32-[address] [facility] Comment on above: Performed By: #### 2 777-1, [facility], , CBCA #### [facility] ([id number]) [address], [address] [place] [address] MCV (RBC) [Entitic vol] 91 fL Normal 80-[address] [facility] Comment on above: Performed By: #### 2 777-1, BMP, , CBCA #### [facility] ([id number]) [address], [address] [place] [address] Monocytes (Bld) [#/Vol] 0.5 10*3/uL Normal 0-0.9 [facility] Comment on above: Performed By: #### 2 777-1, [facility], , CBCA #### [facility] ([id number]) [address], [address] [place] [address] Monocytes/100 WBC (Bld) 7.8 % Normal [facility] Comment on above: Performed By: #### 2 777-1, [facility], , CBCA #### [facility] ([id number]) [address], [address] [place] [address] Neutrophils/100 WBC (Bld) 70.9 % Normal [facility] Comment on above: Performed By: #### 2 777-1, [facility], , CBCA #### [facility] ([id number]) [address], [address] [place] [address] Platelet mean volume (Bld) [Entitic vol] 7.7 fL Normal 7-12 [facility] Comment on above: Performed By: #### 2 777-1, BMP, , CBCA #### [facility] ([id number]) [address], [address] [place] [address] Platelets (Bld) [#/Vol] 185 10*3/uL Normal 150-450 [facility] Comment on above: Performed By: #### 2 777-1, [facility], , CBCA #### [facility] ([id number]) [address], [address] [place] [address] RBC COUNT 3.04 X10E12/L Low 3.80-5.20 [facility] Comment on above: Performed By: #### 2 777-1, [facility], , CBCA #### [facility] ([id number]) [address], [address] [place] [address] WBC (Bld) [#/Vol] 6.2 10*3/uL Normal 4.0-11.0 [facility] Comment on above: Performed By: #### 2 777-1, [facility], , CBCA #### [facility] ([id number]) [address], [address] [place] [address] MAGNESIUMon 01-18-2024 Magnesium [Mass/Vol] 1.9 mg/dL Normal 1.8-2.6 [facility] Comment on above: Performed By: #### 2 777-1, [facility], , CBCA #### [facility] ([id number]) [address], [address] [place] [address] PHOSPHORUSon 01-18-2024 Phosphate [Mass/Vol] 2.5 mg/dL Normal 2.4-4.9 [facility] Comment on above: Performed By: #### C MIRTA, 2777-1, , BMP #### [facility] ([id number]) [address], [address] [place] [address] BASIC METABOLIC PANLon 01-16 Anion gap [Moles/Vol] 9 mmol/L Normal 5-15 [facility] Comment on above: Performed By: #### C MIRTA, 2776-08, , BMP #### [facility] ([id number]) [address], [address] [place] [address] Calcium [Mass/Vol] 7.6 mg/dL Low 8.5-10.5 [facility] Comment on above: Performed By: #### C MIRTA, 2776-08, , BMP #### [facility] ([id number]) [address], [facility] [address] [place] [address] Chloride [Moles/Vol] 110 mmol/L High 98-109 [facility] Comment on above: Performed By: #### C MIRTA, 2776-08, , BMP #### [facility] ([id number]) [address], [address] [place] [address] CO2 [Moles/Vol] 21 mmol/L Low 22-32 [facility] Comment on above: Performed By: #### C MIRTA, 2776-08, , BMP #### [facility] ([id number]) [address], [facility] [address] [place] [address] Creatinine [Mass/Vol] 0.70 mg/dL Normal 0.40-1.00 [facility] Comment on above: Result Comment: METH OD TRACEABLE TO IDMS STANDARD Performed By: #### C MIRTA, 2776-08, , BMP #### [facility] ([id number]) [address], [facility] [address] [place] [address] GFR/1.73 sq M.predicted among non-blacks MDRD (S/P/Bld) [Vol rate/Area] 85 mL/min/{1.73_m2} Normal >59 [facility] Comment on above: Result Comment: Reported eGFR is based on the CKD-EPI 2020 equation that does not use a race coefficient. Performed By: #### C MIRTA, 2776-08, , BMP #### [facility] ([id number]) [address], [address] [place] [address] Glucose [Mass/Vol] 105 mg/dL High 65-99 [facility] Comment on above: Performed By: #### C MIRTA, 2776-08, , BMP #### [facility] ([id number]) [address], [address] [place] [address] Potassium [Moles/Vol] 3.2 mmol/L Low 3.5-5.0 [facility] Comment on above: Performed By: #### Lawrence KIRBY, 2776-08, , BMP #### [facility] ([id number]) [address], [address] [place] [address] Sodium [Moles/Vol] 140 mmol/L Normal 134-146 [facility] Comment on above: Performed By: #### C MIRTA, 2776-08, , BMP #### [facility] ([id number]) [address], [address] [place] [address] Urea nitrogen [Mass/Vol] 16 mg/dL Normal 5-27 [facility] Comment on above: Performed By: #### Lawrence KIRBY, 2776-08, , BMP #### [facility] ([id number]) [address], [address] [place] [address] CBC AND AUTO DIFFon 01-17-20 24 ABSOLUTE BASOPHIL 0.0 X10E9/L Normal 0.0-0.2 [facility] Comment on above: Performed By: #### Lawrence KIRBY, 2776-08, , BMP #### [facility] ([id number]) [address], [address] [place] [address] ABSOLUTE NEUTROPHIL 6.4 X10E9/L Normal 1.5-6.6 [facility] Comment on above: Performed By: #### Lawrence KIRBY, 2776-08, , BMP #### [facility] ([id number]) [address], [address] [place] [address] Basophils/100 WBC (Bld) 0.4 % Normal [facility] Comment on above: Performed By: #### Lawrence KIRBY, 2776-08, , BMP #### [facility] ([id number]) [address], [address] [place] [address] Eosinophils (Bld) [#/Vol] 0.1 10*3/uL Normal 0.0-0.4 [facility] Comment on above: Performed By: #### Lawrence KIRBY, 2776-08, , BMP #### [facility] ([id number]) [address], [address] [place] [address] Eosinophils/100 WBC (Bld) 1.2 % Normal [facility] Comment on above: Performed By: #### Lawrence KIRBY, 2776-08, , BMP #### [facility] ([id number]) [address], [address] [place] [address] Erythrocyte distribution width (RBC) [Ratio] 17.0 % High 11.5-15.0 [facility] Comment on above: Performed By: #### Lawrence KIRBY, 2776-08, , BMP #### [facility] ([id number]) [address], [address] [place] [address] Hematocrit (Bld) [Volume fraction] 29.4 % Low 35-47 [facility] Comment on above: Performed By: #### Lawrence KIRBY, 2776-08, , BMP #### [facility] ([id number]) [address], [address] [place] [address] Hemoglobin (Bld) [Mass/Vol] 10.1 g/dL Low 11.7-15.5 [facility] Comment on above: Performed By: #### Lawrence KIRBY, 2776-08, , BMP #### [facility] ([id number]) [address], [address] [place] [address] Lymphocytes (Bld) [#/Vol] 1.1 10*3/uL Normal 1.0-3.5 [facility] Comment on above: Performed By: #### Lawrence KIRBY, 2776-08, , BMP #### [facility] ([id number]) [address], [address] [place] [address] Lymphocytes/100 WBC (Bld) 13.9 % Normal [facility] Comment on above: Performed By: #### Lawrence KIRBY, 2776-08, , BMP #### [facility] ([id number]) [address], [address] [place] [address] MCH (RBC) [Entitic mass] 31.2 pg Normal 27-34 [facility] Comment on above: Performed By: #### Lawrence KIRBY, 2776-08, , BMP #### [facility] ([id number]) [address], [address] [place] [address] MCHC (RBC) [Mass/Vol] 34.4 g/dL Normal 32-[address] [facility] Comment on above: Performed By: #### Lawrence KRIBY, 2776-08, , BMP #### [facility] ([id number]) [address], [address] [place] [address] MCV (RBC) [Entitic vol] 91 fL Normal 80-[address] [facility] Comment on above: Performed By: #### Lawrence KIRBY, 2776-08, , BMP #### [facility] ([id number]) [address], [address] [place] [address] Monocytes (Bld) [#/Vol] 0.5 10*3/uL Normal 0-0.9 [facility] Comment on above: Performed By: #### Lawrence KIRBY, 2776-08, , BMP #### [facility] ([id number]) [address], [address] [place] [address] Monocytes/100 WBC (Bld) 6.2 % Normal P [facility] Comment on above: Performed By: #### Lawrence KIRBY, 2776-08, , BMP #### [facility] ([id number]) [address], [address] [place] [address] Neutrophils/100 WBC (Bld) 78.3 % Normal [facility] Comment on above: Performed By: #### Lawrence KIRBY, 2776-08, , BMP #### [facility] ([id number]) [address], [address] [place] [address] Platelet mean volume (Bld) [Entitic vol] 7.4 fL Normal 7-12 [facility] Comment on above: Performed By: #### Lawrence KIRBY, 2776-08, , BMP #### [facility] ([id number]) [address], [address] [place] [address] Platelets (Bld) [#/Vol] 205 10*3/uL Normal 150-450 [facility] Comment on above: Performed By: #### Lawrence KIRBY, 2776-08, , BMP #### [facility] ([id number]) [address], [address] [place] [address] RBC COUNT 3.24 X10E12/L Low 3.80-5.20 [facility] Comment on above: Performed By: #### Lawrence KIRBY, 2776-08, , BMP #### [facility] ([id number]) [address], [address] [place] [address] WBC (Bld) [#/Vol] 8.2 10*3/uL Normal 4.0-11.0 [facility] Comment on above: Performed By: #### C MIRTA, 2776-08, , BMP #### [facility] ([id number]) [address], [address] [place] [address] MAGNESIUMon 01-17-2024 Magnesium [Mass/Vol] 2.0 mg/dL Normal 1.8-2.6 [facility] Comment on above: Performed By: #### C MIRTA, 2776-08, , BMP #### [facility] ([id number]) [address] [place] [address] PHOSPHORUSon 01-17-2024 Phosphate [Mass/Vol] 2.9 mg/dL Normal 2.4-4.9 [facility] Comment on above: Performed By: #### 2 777-1, 2823-3 #### [facility] ([id number]) [address], [address] [place] [address] Phosphate [Mass/Vol] 2.3 mg/dL Low 2.4-4.9 [facility] Comment on above: Performed By: #### C MIRTA, 2776-08, , BMP #### [facility] ([id number]) [address], [address] [place] [address] POTASSIUMon 01-17-2024 Potassium [Moles/Vol] 3.5 mmol/L Normal 3.5-5.0 [facility] Comment on above: Performed By: #### 2 823-3 #### [facility] ([id number]) [address], [address] [place] [address] Potassium [Moles/Vol] 3.3 mmol/L Low 3.5-5.0 [facility] Comment on above: Performed By: #### 2 777-1, 2823-3 #### [facility] ([id number]) [address], [address] [place] [address] XR Chest 2 Viewson 4 Small bilateral pleu ral effusions Stable cardiomegaly [facility] RIS CONSOLIDATED EXAMINATION: TWO XRAY VIEWS OF THE CHEST 12/17/2023 10:54 am COMPARISON: 04/02/2022 HISTORY: ORDERING SYSTEM PROVIDED HISTORY: History of chest pain FINDINGS: Transvenous pacer remains in place. Aortic stent in place. Stable cardiomegaly. Small bilateral pleural effusions. No pneumothorax. No focal airspace disease. [facility] RIS CONSOLIDATED Juan Carlos Graff MD - 12/17/2023 EXAMINATION: TWO XRAY VIEWS OF THE CHEST 12/17/2023 10:54 am COMPARISON: 04/02/2022 HISTORY: ORDERING SYSTEM PROVIDED HISTORY: History of chest pain FINDINGS: Transvenous pacer remains in place. Aortic stent in place. Stable cardiomegaly. Small bilateral pleural effusions. No pneumothorax. No focal airspace disease. IMPRESSION: Small bilateral pleural effusions Stable cardiomegaly [facility] [employer] [place] Radiology Study observation (narrative) [facility] O-film XR Chest 2 ViewsOrdered By: Juan Carlos Graff on 12-17-2023 [facility] [employer] Work Phone: [place] 06-22-2023 Screens [id number] IFF [facility] Ambulatory Visit Summaryon 1 08-19-2022 Ambulatory Visit Summary LEYLA LAMBERT :1940 Visit Date:06/19/2023 Ambulatory Visit Instructions Your Diagnosis Nocturia Cyst of left kidney Mixed incontinence Anticoagulated Your Care Team Attending Physician - Regino CLARK, Lou Kendall Primary Care Physician - DOUGLAS WILL MD This Is Your Medications List mirabegron (Myrbetriq 25 mg oral tablet, extended release) Contact prescribing physician if questions or concerns Misc Prescription (clopidogrel 75 mg tablet) amlodipine carbidopa-levodopa (carbidopa-levodopa 25 mg-100 mg Tab) celecoxib (celecoxib 200 mg Cap) chlorhexidine topical (Hibiclens 4% Soap) fludrocortisone (fludrocortisone 0.1 mg Tab) fluticasone/umeclidiniu m/vilanterol (Trelegy Ellipta 100 mcg-62.5 mcg-25 mcg inhalation powder) levothyroxine (levothyroxine 100 mcg (0.1 mg) Tab) montelukast nebivolol (nebivolol 20 mg oral tablet) pantoprazole roflumilast (Daliresp 500 mcg oral tablet) trazodone (traZODONE 150 mg Tab) warfarin (warfarin 5 mg Tab) Procedures Performed Appendectomy, Bilateral after-cataract, Bowel, Breast surgery, Cardiac pacemaker, Colonoscopy, Gallbladder, Hysterectomy, Kidney, Knee replacement, Post-surgery back pain, Radical tonsillectomy, Repair of esophagus, Tubal ligation. Discharge Vitals Blood Pressure 132/78 Height 161 cm Height 63 in Weight 51.516 kg Weight 113.335 lb BMI 19.87 What to do next Scheduled Follow-Up Appointments 2023 3:00 PM EDT With: Regino CLARK, Lou Kendall Where: [facility] Patient Educationon 06-19-20 Patient Education Obstetrics and Gynecology Kegel Exercises Kegel exercises can help strengthen your pelvic floor muscles. The pelvic floor is a group of muscles that support your rectum, small intestine, and bladder. In females, pelvic floor muscles also help support the uterus. These muscles help you control the flow of urine and stool (feces). Kegel exercises are painless and simple. They do not require any equipment. Your provider may suggest Kegel exercises to: ? Improve bladder and bowel control. ? Improve sexual response. ? Improve weak pelvic floor muscles after surgery to remove the uterus (hysterectomy) or after , in females. ? Improve weak pelvic floor muscles after prostate gland removal or surgery, in males. Kegel exercises involve squeezing your pelvic floor muscles. These are the same muscles you squeeze when you try to stop the flow of urine or keep from passing gas. The exercises can be done while sitting, standing, or lying down, but it is best to vary your position. Ask your health care provider which exercises are safe for you. Do exercises exactly as told by your health care provider and adjust them as directed. Do not begin these exercises until told by your health care provider. Exercises How to do Kegel exercises: 1. Squeeze your pelvic floor muscles tight. You should feel a tight lift in your rectal area. If you are a female, you should also feel a tightness in your vaginal area. Keep your stomach, buttocks, and legs relaxed. 2. Hold the muscles tight for up to 10 seconds. 3. Breathe normally. 4. Relax your muscles for up to 10 seconds. 5. Repeat as told by your health care provider. Repeat this exercise daily as told by your health care provider. Continue to do this exercise for at least 4?6 weeks, or for as long as told by your health care provider. You may be referred to a physical therapist who can help you learn more about how to do Kegel exercises. Depending on your condition, your health care provider may recommend: ? Varying how long you squeeze your muscles. ? Doing several sets of exercises every day. ? Doing exercises for several weeks. ? Making Kegel exercises a part of your regular exercise routine. This information is not intended to replace advice given to you by your health care provider. Make sure you discuss any questions you have with your health care provider. Document Revised: 12/12/2021 Document Reviewed: 12/12/2021 [employer] Patient Education ? 2022 [employer] [facility] Urology Office/Clinic Noteon 06-19-2023 Urology Office/Clinic Note Chief Complaint F/U for Nocturia HPI Staff RWR pt. Pt is here for an office visit for nocturia. Previous DX: cyst of left kidney, mixed incontinence, nocturia. No Urological surgeries. She has problems drinking water due to her esophagus repair she had done in March of this year. Could not give a urine sample Dysuria: denies Incomplete bladder emptying: no Hematuria: denies visible blood Frequency: every few hours daily Urgency: _sometimes Nocturia: 2x nightly Stream: denies hesitation, weak stream Leaking: denies Post void dripping: _denies Wearing pads/ Depends: pads wore at night ,changes in the morning Urge incontinence: _denies Stress incontinence: denies Incontinence without Sensory Awareness: denies Abdominal pain: denies Flank pain: denies Sexual complaints: denies History of Present Illness Tests reviewed: reviewed UA, external records I have reviewed the previous health record information and history for this patient from . I have reviewed and verified the staff HPI to be accurate for this encounter. There have been no associated fever, chills, flank pain, or blood in the urine. Denies any urinary infections since last encounter. Review of Systems PHQ Score Initial Depression Screen Score: 0 ROS - Provider Constitutional: denies weight loss, denies hot flashes. Eyes: denies eye problems. Gastrointestinal: denies nausea, denies vomiting. Cardiovascular: denies chest pain or angina. Integumentary: no dryness Musculoskeletal: denies musculoskeletal symptoms. ENMT: denies otolaryngeal symptoms. Respiratory: no shortness of breath. Heme/Lymph: denies easy bleeding tendency, denies easy bruising tendency. Psychiatric: no confusion, no anxiety. Genitourinary: See HPI. Physical Exam Vitals & Measurements BP: 132/78 HT: 63 in HT: 161 cm WT: 51.516 kg WT: 113.335 lb BMI: 19.87 General Appearance: alert , no acute distress, well nourished, well developed female. Ambulates with roller walker Genitourinary: bladder nonpalpable, no flank pain. Assessment/Plan Former RWR pt here for follow-up of nocturia She has problems drinking water due to her esophagus repair she had done in March of this year, has a hard time swallowing. 1. Nocturia (R35.1: Nocturia) 1-2x a night, prior 2- 3 times a night. Despite limiting fluids at nighttime. Very bothersome to patient. No lower extremity edema Counseled pt on the possible causes of her nocturia. Patient states she had improvement with oxybutynin. She was taken off by Dr. Archuleta due to issues with swallowing. She had a Robotic Heller myotomy, Haroldo fundoplication which she still has issues however is able to take pills. Unable to drink thin liquids such as water. She would like to restart medication. Offered alternative medications with decrease side effects however she declines at this time. She has dry mouth/lips. Discussed how this may get worse. She is adamant about starting oxybutynin again. -We will send oxybutynin 5 mg nightly to pharmacy on file. Again counseled on risks as above. -Consider DDAVP in the future versus beta 3 agonist 2. Cyst of left kidney (N28.1: Cyst of kidney, acquired) CT Abdomen w/ Con 12/31/21 showed cystic changes of the kidney without enhancement or solid component to suggest renal cell carcinoma No Urological surgeries. -no surveillance recommended for simple renal cysts 3. Mixed incontinence (N39.46: Mixed incontinence) S/p Cysto/UD w/RWR 01/22/22 - grade 2 trabeculation, smaller capacity bladder, spontaneous detrusor activity at 150mL, no signs of stress incontinence with coughing and straining Has previously taken Oxybutynin 5mg, d/c due to having stomach issues. Wears pads during the night, urinary frequency. PVR 18ml -Main issue at night. See #1. -Follow up in 8 mos. All questions/concerns were discussed. Pt to call the office if she encounters any issues prior. Pt acknowledges understanding. 4. Anticoagulated (Z79.01: retirement (current) 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s) Warfarin 5mg qd -being transitioned to Eliquis. Elevated risk of perioperative complications Orders: mirabegron, 25 mg = 1 tab(s), Oral, Daily, # 30 tab(s), Refills(s) 6, Pharmacy: [facility], 161, cm, 06/19/23 13:26:00 EDT, Height/Length Dosing, 51.5, kg, 06/19/23 13:26:00 EDT, Weight Dosing oxybutynin, 5 mg = 1 tab(s), Oral, qPM, # 30 tab(s), Refills(s) 6, Pharmacy: [facility], 161, cm, 06/19/23 13:26:00 EDT, Height/Length Dosing, 51.5, kg, 06/19/23 13:26:00 EDT, Weight Dosing I spent 30 minutes today with the patient: reviewing tests in preparation to see and discuss them with the patient, obtaining and reviewing external separately obtained history, documenting clinical information in the electronic health records, and care coordination. Time was spent performing a medical exam and evaluation, counseling and educating the patient/family, and ordering medications in caring for the patient. Follow (more content not included)... [facility] Comment on above: Result Comment: Elec tronically Signed By: Lou Lacy MD\.br\Date and Time Signed: 06/19/23 14:36 EDT\.br\Electronically Co-Signed By: Delia Balderrama\.br\Date and Time Co-Signed: 06/19/23 13:59 EDT [facility] 04-30-2023 INR Coag (Bld) [Relative time] 2.4 {INR} [facility] 02-10-2023 INR Coag (Bld) [Relative time] 2.1 {INR} [facility] 02-03-2023 INR Coag (Bld) [Relative time] 1.8 {INR} [facility] Patient Educationon 02-03-20 Patient Education Obstetrics and Gynecology Overactive Bladder, Adult Overactive bladder is a condition in which a person has a sudden and frequent need to urinate. A person might also leak urine if he or she cannot get to the bathroom fast enough (urinary incontinence). Sometimes, symptoms can interfere with work or social activities. What are the causes? Overactive bladder is associated with poor nerve signals between your bladder and your brain. Your bladder may get the signal to empty before it is full. You may also have very sensitive muscles that make your bladder squeeze too soon. This condition may also be caused by other factors, such as: ? Medical conditions: ? Urinary tract infection. ? Infection of nearby tissues. ? Prostate enlargement. ? Bladder stones, inflammation, or tumors. ? Diabetes. ? Muscle or nerve weakness, especially from these conditions: ? A spinal cord injury. ? Stroke. ? Multiple sclerosis. ? Parkinson's disease. ? Other causes: ? Surgery on the uterus or urethra. ? Drinking too much caffeine or alcohol. ? Certain medicines, especially those that eliminate extra fluid in the body (diuretics). ? Constipation. What increases the risk? You may be at greater risk for overactive bladder if you: ? Are an older adult. ? Smoke. ? Are going through menopause. ? Have prostate problems. ? Have a neurological disease, such as stroke, dementia, Parkinson's disease, or multiple sclerosis (MS). ? Eat or drink alcohol, spicy food, caffeine, and other things that irritate the bladder. ? Are overweight or obese. What are the signs or symptoms? Symptoms of this condition include a sudden, strong urge to urinate. Other symptoms include: ? Leaking urine. ? Urinating 8 or more times a day. ? Waking up to urinate 2 or more times overnight. How is this diagnosed? This condition may be diagnosed based on: ? Your symptoms and medical history. ? A physical exam. ? Blood or urine tests to check for possible causes, such as infection. You may also need to see a health care provider who specializes in urinary tract problems. This is called a urologist. How is this treated? Treatment for overactive bladder depends on the cause of your condition and whether it is mild or severe. Treatment may include: ? Bladder training, such as: ? Learning to control the urge to urinate by following a schedule to urinate at regular intervals. ? Doing Kegel exercises to strengthen the pelvic floor muscles that support your bladder. ? Special devices, such as: ? Biofeedback. This uses sensors to help you become aware of your body's signals. ? Electrical stimulation. This uses electrodes placed inside the body (implanted) or outside the body. These electrodes send gentle pulses of electricity to strengthen the nerves or muscles that control the bladder. ? Women may use a plastic device, called a pessary, that fits into the vagina and supports the bladder. ? Medicines, such as: ? Antibiotics to treat bladder infection. ? Antispasmodics to stop the bladder from releasing urine at the wrong time. ? Tricyclic antidepressants to relax bladder muscles. ? Injections of botulinum toxin type A directly into the bladder tissue to relax bladder muscles. ? Surgery, such as: ? A device may be implanted to help manage the nerve signals that control urination. ? An electrode may be implanted to stimulate electrical signals in the bladder. ? A procedure may be done to change the shape of the bladder. This is done only in very severe cases. Follow these instructions at home: Eating and drinking ? Make diet or lifestyle changes recommended by your health care provider. These may include: ? Drinking fluids throughout the day and not only with meals. ? Cutting down on caffeine or alcohol. ? Eating a healthy and balanced diet to prevent constipation. This may include: ? Choosing foods that are high in fiber, such as beans, whole grains, and fresh fruits and vegetables. ? Limiting foods that are high in fat and processed sugars, such as fried and sweet foods. Lifestyle ? Lose weight if needed. ? Do not use any products that contain nicotine or tobacco. These include cigarettes, chewing tobacco, and vaping devices, such as e-cigarettes. If you need help quitting, ask your health care provider. General instructions ? Take tnrh-jkn-bloklhb and prescription medicines only as told by your health care provider. ? If you were prescribed an antibiotic medicine, take it as told by your health care provider. Do not stop taking the antibiotic even if you start to feel better. ? Use any implants or pessary as told by your health care provider. ? If needed, wear pads to absorb urine leakage. ? Keep a log to track how much and when you drink, and when you need to urinate. This will help your health care provider monitor yo (more content not included)... [facility] Urology Office/Clinic Noteon 02-02-2023 Urology Office/Clinic Note Chief Complaint pt here today for a 2 month f/u HPI Staff 2 month follow up. Previous DX: cyst of left kidney, mixed incontinence, nocturia. No Urological surgeries. Dysuria: denies Incomplete bladder emptying: yes Hematuria: denies Frequency: denies Urgency: yes Nocturia: 2-3x Stream: weak stream, pt states she has to force it out Leaking: denies Post void dripping: denies Wearing pads/ Depends:pads at night Urge incontinence: denies Stress incontinence: denies Incontinence without Sensory Awareness: denies Abdominal pain: denies Flank pain: denies Sexual complaints: _ History of Present Illness Tests Reviewed: Reviewed UA. I have reviewed and verified the staff HPI to be accurate for this encounter. I have reviewed the previous health record information and history for this patient from Dr. Archuleta There have been no associated fever, chills, flank pain, or blood in the urine. Denies any urinary infections since last encounter. Review of Systems PHQ Score Initial Depression Screen Score: 0 ROS - Provider Constitutional: denies weight loss, denies hot flashes. Eyes: denies eye problems. Gastrointestinal: denies nausea, denies vomiting. Cardiovascular: denies chest pain or angina. Integumentary: no dryness Musculoskeletal: denies musculoskeletal symptoms. ENMT: denies otolaryngeal symptoms. Respiratory: no shortness of breath. Heme/Lymph: denies easy bleeding tendency, denies easy bruising tendency. Psychiatric: no confusion, no anxiety. Genitourinary: denies vaginal discharge, denies incontinence, denies dysuria, denies hematuria, denies urinary frequency, denies amenorrhea, denies menorrhagia, denies abnormal bleeding, denies pelvic pain, denies genital sores, and denies decreased libido. Physical Exam Vitals & Measurements HR: 96(Peripheral) BP: 166/81 HT: 63 in HT: 161 cm WT: 55 kg WT: 121 lb BMI: 21.22 General Appearance: alert , no acute distress, well nourished, well developed female. Genitourinary: bladder nonpalpable, no flank pain. Assessment/Plan 1. Cyst of left kidney (N28.1: Cyst of kidney, acquired) Previous CT done on 12/31/21 showed cystic changes of the kidney without solid component to suggest renal cell carcinoma No Urological surgeries. All questions and concerns were discussed. Pt acknowledge and understands. Pt will call our office with any changes in urinary symptoms 2. Mixed incontinence (N39.46: Mixed incontinence) discontinue taking Oxybutynin 5mg due to having stomach issues. wears depends during the night, urinary frequency pt wears pads at night pt has to force stream 3. Nocturia (R35.1: Nocturia) 2-3x a night 4. Anticoagulated (Z79.01: 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) Warfarin 5mg qd This patient I was looking at for mixed urinary incontinence someone had her on oxybutynin they had to discontinue it she has had a longstanding stomach troubles questionable hiatal hernia she is going to get esophageal manometry in [place] and she has been in [place] next week with dysphagia with poor stomach emptying so there is no way any of the overactive medications for bladder are indicated for the patient has and I have decided to just let her bladder be nothing further should be done in my estimation the patient is content with that see as needed Follow-up With When Contact Information KATHE CLARK, Isauro More, URL Only if needed [facility] [place] [address]- Additional Instructions: Patient Education Overactive Bladder, Adult I, Angelica Montesinos personally scribed for Dr. Archuleta on 02/02/2023 15:37:22. . Portions of this record may have been created with voice recognition artificial intelligence software, specifically [employer] and or [employer]. Substitutions may have occurred due to the inherent limitations of voice recognition and artificial intelligence software. Documentation recorded by the scribe, Angelica Montesinos, accurately reflects the services(s) I performed and decisions made by me. Authenticated by Dr. Archuleta on 04/25/2021 08:43:47. Problem List/Past Medical History Ongoing Anticoagulated Cyst of left kidney Hiatal hernia Mixed incontinence Nocturia Historical No qualifying data Procedure/Surgical History Appendectomy, Bilateral after-cataract, Bowel, Breast surgery, Cardiac pacemaker, Colonoscopy, Gallbladder, Hysterectomy, Kidney, Knee replacement, Post-surgery back pain, Radical tonsillectomy, Tubal ligation. Medications amlodipine, Oral, Daily carbidopa-levodopa 25 mg-100 mg Tab celecoxib 200 mg Cap clopidogrel 75 mg tablet, 0 Daliresp 500 mcg oral tablet fludrocortisone 0.1 mg Tab Hibiclens 4% Soap levothyroxine 100 mcg (0.1 mg) Tab montelukast, Daily nebivolol 20 mg oral tablet, Oral, Daily pantoprazole, Daily traZODONE 150 mg Tab Trelegy Ellipta 100 mcg- (more content not included)... [facility] Comment on above: Result Comment: Elec tronically Signed By: Isauro ARCHULETA MD\.br\Date and Time Signed: 02/02/23 15:55 EDT\.br\Electronically Co-Signed By: Angelica Montesinos MA\.br\Date and Time Co-Signed: 02/02/23 15:37 EDT [facility] 01-19-2023 INR Coag (Bld) [Relative time] 3.4 {INR} [facility] Work Phone: [employer] Work Phone: [facility] 12-23-2022 INR Coag (Bld) [Relative time] 1.9 {INR} [facility] Work Phone: [facility] Work Phone: CNOVon 12-10-2022 CNOV Office Visit (ORTHIN ) PETRALEYLA ([id number]) 1940 F Date Time Provider Department 12/10/22 11:45 AM NGUYỄN JEAN During your visit today, we recorded the following information about you: Nguyễn Jean MD 12/10/2022 12:32 PM Signed Leyla returns today for follow-up of her right knee. Her most recent surgery was a poly swap back in April 2022. She is actually been doing much better over the past 6 months. She did stop taking doxycycline 2 months ago due to GI upset. Still, since stopping that her symptoms have not changed. She is currently happy with her right knee. At the time of surgery no growth was shown on cultures. Exam of her knee reveals no erythema or excessive warmth. Mild appropriate effusion. She has a constrained implant but it is stable throughout all range of motion. X-rays today are unchanged, she has a well fixed right constrained knee replacement. No fractures or any sign of loosening. She is doing well at this point ambulating with a wheeled walker. Follow-up on a as needed basis if she has any issues she knows how to contact us. I personally evaluated this patient and agree with the note from the nurse/resident/fellow including PMH, PSH, SH, meds, allergies, and review of systems. I completed the HPI and performed the physical exam. Additionally I reviewed available imaging and wrote my interpretation. I wrote the Assessment and Plan. This note was partially generated using [employer] voice recognition system. 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 You will continue this along with your coumadin until your INR is therapeutic (2-3). When your INR is therapeutic, stop the lovenox and continue on your coumadin. Please follow up with your PCP or coumadin clinic after discharge to get your INR checked. - docusate sodium (COLACE) 100 mg capsule Take 1 capsule by mouth twice daily as needed for constipation. - acetaminophen (TYLENOL) 500 mg tablet Take 2 tablets by mouth every 8 hours. - calcium carbonate (TUMS) 500 mg chew Take 1 tablet by mouth twice daily. Do not take while you are taking ciprofloxacin, you may resume use after course of ciprofloxacin is complete - oxybutynin (DITROPAN) 5 mg tablet Take 5 mg by mouth daily at bedtime. - triamcinolone acetonide (KENALOG) 0.1 % cream APPLY TO AFFECTED AREAS ON THE BACK TOPICALLY WHEN FLARED TWICE DAILY. (AVOID THE FACE, ARMPITS AND GROIN) - celecoxib (CELEBREX) 200 mg capsule Take 200 mg by mouth. - clopidogrel (PLAVIX) 75 mg tablet Take 1 tablet by mouth once daily. - warfarin (COUMADIN) 5 mg tablet Take 5 mg by mouth once daily. M-W FR 7.5 mg Sun Tues Thur Sat 5 mg - amLODIPine (NORVASC) 5 mg tablet Take 1 tablet by mouth once daily. - uujsqufkwyp-zjznyzhqi-q ilanter (TRELEGY ELLIPTA) 100-62.5-25 mcg Inhale 1 Puff as instructed once daily. - omeprazole (PRILOSEC) 40 mg capsule Take 40 mg by mouth once daily. - hydrALAZINE (APRESOLINE) 25 mg tablet TAKE 1 TABLET BY MOUTH NEEDED EVERY 4 HOURS WHEN YOUR SYSTOLIC BLOOD PRESSURE IS ABOVE 180 MMHG TAKE DIRECTED - levothyroxine (SYNTHROID) 100 mcg tablet Take 100 mcg by mouth. - roflumilast (DALIRESP) 500 mcg tab Take 500 mcg by mouth once daily. - traZODone (DESYREL) 150 mg tablet Take 1 tablet by mouth daily at bedtime. - carbidopa-levodopa (SINEMET 25-100) 25-100 mg per tablet Take 1 tablet by mouth every morning. Facility-Administered Medications as of 12/10/2022 - lidocaine (PF) 20 mg/mL (2 %) injection (XYLOCAINE) Problem List As Of Date 12/10/2022 Noted Resolved Painful total knee replacement (HCC) [T84.84XA,*07/19/2014 Atrial fibrillation (HCC) [I48.91] Coronary atherosclerosis [I25.10] Other pulmonary embolism and infarction [I26.99] Essential hypertension, benign [I10] Breast cancer (HCC) [C50.919] COPD, group D, by GOLD 2017 classification (HCC* Status post knee surgery [Z98.890] 08/06/2016 History of pulmonary embolism [Z86.711] 03/01/2018 Mixed simple and mucopurulent chronic bronchiti*03/01/2018 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 Normal [facility] XR KNEE 3V AP/LAT/MERCHANT R Ton 12-10-2022 XR KNEE 3V AP/LAT/MERCHANT RT * * *Final Report* * * DATE OF EXAM: Dec 10 2022 9:49AM CCX 5209 - XR KNEE 3V AP/LAT/MERCHANT RT / PROCEDURE REASON: S/P revision of total knee, left * * * * Physician Interpretation * * * * HISTORY: S/P revision of total knee, left . 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 Again seen are the lucent zones adjacent to the femoral and tibial components, concerning for loosening. The right patella is diminutive and fragmented. There is no acute fracture or dislocation. Again seen is the left knee degenerative arthritis and chondrocalcinosis. There is no soft tissue swelling. No other significant abnormality. IMPRESSION: No appreciable change. Optical Goods Worker: [facility] Transcribe Date/Time: Dec 10 2022 10:42A Dictated by : MARGARETH RODRIGUEZ MD This examination was interpreted and the report reviewed and electronically signed by: MARGARETH RODRIGUEZ MD on Dec 10 2022 10:51AM EST [id number] Normal [facility] XR Knee AP and Lateral and M erchantson 12-10-2022 IMPRESSION: No appreciable change. Optical Goods Worker: [facility] Transcribe Date/Time: Dec 10 2022 10:42A Dictated by : MARGARETH RODRIGUEZ MD This examination was interpreted and the report reviewed and electronically signed by: MARGARETH RODRIGUEZ MD on Dec 10 2022 10:51AM EST DIVISION OF RADIOLOGY * * *Final Report* * * DATE OF EXAM: Dec 10 2022 9:49AM CCX 5209 - XR KNEE 3V AP/LAT/MERCHANT RT / PROCEDURE REASON: S/P revision of total knee, left * * * * Physician Interpretation * * * * HISTORY: S/P revision of total knee, left . 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 Again seen are the lucent zones adjacent to the femoral and tibial components, concerning for loosening. The right patella is diminutive and fragmented. There is no acute fracture or dislocation. Again seen is the left knee degenerative arthritis and chondrocalcinosis. There is no soft tissue swelling. No other significant abnormality. DIVISION OF RADIOLOGY Provider, Joseph Moseley - 12/10/2022 * * *Final Report* * * DATE OF EXAM: Dec 10 2022 9:49AM CCX 5209 - XR KNEE 3V AP/LAT/MERCHANT RT / PROCEDURE REASON: S/P revision of total knee, left * * * * Physician Interpretation * * * * HISTORY: S/P revision of total knee, left . 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 Again seen are the lucent zones adjacent to the femoral and tibial components, concerning for loosening. The right patella is diminutive and fragmented. There is no acute fracture or dislocation. Again seen is the left knee degenerative arthritis and chondrocalcinosis. There is no soft tissue swelling. No other significant abnormality. IMPRESSION IMPRESSION: No appreciable change. Optical Goods Worker: RIKA Transcribe Date/Time: Dec 10 2022 10:42A Dictated by : MARGARETH RODRIGUEZ MD This examination was interpreted and the report reviewed and electronically signed by: MARGARETH RODRIGUEZ MD on Dec 10 2022 10:51AM EST [facility] Radiology Study observation (narrative) Cierra banda [facility] XR Knee AP and Lateral and M erchantsOrdered By: [facility]cf Provider on 12-10-2022 [facility] Protime-INRon 12-08-2022 INR Coag (Bld) [Relative time] 1.7 {INR} [employer] Work Phone: [employer] Work Phone: Patient Educationon 12-02-19 Patient Education Obstetrics and Gynecology Overactive Bladder, Adult Overactive bladder refers to a condition in which a person has a sudden need to pass urine. The person may leak urine if he or she cannot get to the bathroom fast enough (urinary incontinence). A person with this condition may also wake up several times in the night to go to the bathroom. Overactive bladder is associated with poor nerve signals between your bladder and your brain. Your bladder may get the signal to empty before it is full. You may also have very sensitive muscles that make your bladder squeeze too soon. These symptoms might interfere with daily work or social activities. What are the causes? This condition may be associated with or caused by: ? Urinary tract infection. ? Infection of nearby tissues, such as the prostate. ? Prostate enlargement. ? Surgery on the uterus or urethra. ? Bladder stones, inflammation, or tumors. ? Drinking too much caffeine or alcohol. ? Certain medicines, especially medicines that get rid of extra fluid in the body (diuretics). ? Muscle or nerve weakness, especially from: ? A spinal cord injury. ? Stroke. ? Multiple sclerosis. ? Parkinson's disease. ? Diabetes. ? Constipation. What increases the risk? You may be at greater risk for overactive bladder if you: ? Are an older adult. ? Smoke. ? Are going through menopause. ? Have prostate problems. ? Have a neurological disease, such as stroke, dementia, Parkinson's disease, or multiple sclerosis (MS). ? Eat or drink things that irritate the bladder. These include alcohol, spicy food, and caffeine. ? Are overweight or obese. What are the signs or symptoms? Symptoms of this condition include: ? Sudden, strong urge to urinate. ? Leaking urine. ? Urinating 8 or more times a day. ? Waking up to urinate 2 or more times a night. How is this diagnosed? Your health care provider may suspect overactive bladder based on your symptoms. He or she will diagnose this condition by: ? A physical exam and medical history. ? Blood or urine tests. You might need bladder or urine tests to help determine what is causing your overactive bladder. You might also need to see a health care provider who specializes in urinary tract problems (urologist). How is this treated? Treatment for overactive bladder depends on the cause of your condition and whether it is mild or severe. You can also make lifestyle changes at home. Options include: ? Bladder training. This may include: ? Learning to control the urge to urinate by following a schedule that directs you to urinate at regular intervals (timed voiding). ? Doing Kegel exercises to strengthen your pelvic floor muscles, which support your bladder. Toning these muscles can help you control urination, even if your bladder muscles are overactive. ? Special devices. This may include: ? Biofeedback, which uses sensors to help you become aware of your body's signals. ? Electrical stimulation, which uses electrodes placed inside the body (implanted) or outside the body. These electrodes send gentle pulses of electricity to strengthen the nerves or muscles that control the bladder. ? Women may use a plastic device that fits into the vagina and supports the bladder (pessary). ? Medicines. ? Antibiotics to treat bladder infection. ? Antispasmodics to stop the bladder from releasing urine at the wrong time. ? Tricyclic antidepressants to relax bladder muscles. ? Injections of botulinum toxin type A directly into the bladder tissue to relax bladder muscles. ? Lifestyle changes. This may include: ? Weight loss. Talk to your health care provider about weight loss methods that would work best for you. ? Diet changes. This may include reducing how much alcohol and caffeine you consume, or drinking fluids at different times of the day. ? Not smoking. Do not use any products that contain nicotine or tobacco, such as cigarettes and e-cigarettes. If you need help quitting, ask your health care provider. ? Surgery. ? A device may be implanted to help manage the nerve signals that control urination. ? An electrode may be implanted to stimulate electrical signals in the bladder. ? A procedure may be done to change the shape of the bladder. This is done only in very severe cases. Follow these instructions at home: Lifestyle ? Make any diet or lifestyle changes that are recommended by your health care provider. These may include: ? Drinking less fluid or drinking fluids at different times of the day. ? Cutting down on caffeine or alcohol. ? Doing Kegel exercises. ? Losing weight if needed. ? Eating a healthy and balanced diet to prevent constipation. This may include: ? Eating foods that are high in fiber, such as fresh fruits and vegetables, whole grains, and beans. ? Limiting foods that are high in fat and processed sugars, such as fried and sweet foods. General instructions ? Take ove (more content not included)... Normal [facility] Urology Office/Clinic Noteon 12-01-2022 Urology Office/Clinic Note Chief Complaint 8 month follow up HPI Staff Pt is here today for 8 month follow up to starting Oxybutynin. Previous DX: cyst of Lt kidney, mixed incontinence, nocturia. Pt is unable to give urine sample today. Pt is currently taking Oxybutynin 5mg and would like to discuss increasing the dosage. Dysuria: denies pain and burning Incomplete bladder emptying: yes Hematuria: denies visible blood Frequency: every 3-4 hours Urgency: yes Nocturia: every 2 hours Stream: strain, weak stream Leaking: denies Post void dripping: denies Wearing pads/ Depends: wears depends during the night Urge incontinence: yes when she stopped taking Oxybutynin Stress incontinence: denies Incontinence without Sensory Awareness: denies Abdominal pain: denies Flank pain: denies History of Present Illness Tests Reviewed: Reviewed UA. I have reviewed and verified the staff HPI to be accurate for this encounter. I have reviewed the previous health record information and history for this patient from Dr. Archuleta There have been no associated fever, chills, flank pain, or blood in the urine. Denies any urinary infections since last encounter. Review of Systems PHQ Score Initial Depression Screen Score: 0 ROS - Provider Constitutional: denies weight loss, denies hot flashes. Eyes: denies eye problems. Gastrointestinal: denies nausea, denies vomiting. Cardiovascular: denies chest pain or angina. Integumentary: no dryness Musculoskeletal: denies musculoskeletal symptoms. ENMT: denies otolaryngeal symptoms. Respiratory: no shortness of breath. Heme/Lymph: denies easy bleeding tendency, denies easy bruising tendency. Psychiatric: no confusion, no anxiety. Genitourinary: denies vaginal discharge, denies incontinence, denies dysuria, denies hematuria, denies urinary frequency, denies amenorrhea, denies menorrhagia, denies abnormal bleeding, denies pelvic pain, denies genital sores, and denies decreased libido. Physical Exam Vitals & Measurements BP: 171/90 HT: 63 in HT: 161.0 cm WT: 55 kg WT: 121 lb BMI: 21.22 General Appearance: alert , no acute distress, well nourished, well developed female. Genitourinary: bladder nonpalpable, no flank pain. Assessment/Plan Pt is here for 9 month follow up 1. Mixed incontinence (N39.46: Mixed incontinence) Pt is currently taking Oxybutynin 5mg and would like to discuss increasing the dosage. wears depends during the night, urinary frequency Discontinue taking Oxybutynin 5mg qd due to Pt having GI issues currently, pt has difficulty swallowing, pt is loosing more and more weight All questions and concerns were discussed. Pt acknowledge and understands. Pt will call our office with any changes in urinary symptoms 2. Cyst of left kidney (N28.1: Cyst of kidney, acquired) Previous CT done on 12/31/21 showed cystic changes of the kidney without solid component to suggest renal cell carcinoma 3. Nocturia (R35.1: Nocturia) mild intermittent every 2 hours Patient actually was going to have a hiatal hernia repair but that did not happen that is why I did not change her medications. They dilate her esophagus a couple of times which helped her swallow but she says her stomach does not empty properly so absolutely I am not going to have her on the oxybutynin I said you lost weight you are just turning the corner and getting better got out of the hospital now weighs 104 up from 99. No more antispasmodics for this bladder lets see her in 2 months see if she is gaining weight we will address the issue of her urinary leakage going forward. The medications are not indicated with her history Documentation recorded by the scribe, Angelica Montesinos, accurately reflects the services(s) I performed and decisions made by me. Authenticated by Dr. Archuleta on 04/25/2021 08:43:47. Follow-up With When Contact Information KATHE CLARK, Isauro More, MIKKI Within [address] [place] [phone] Additional Instructions: 2 month follow up Patient Education Overactive Bladder, Adult Problem List/Past Medical History Ongoing Cyst of left kidney Mixed incontinence Nocturia Historical No qualifying data Procedure/Surgical History Appendectomy, Bilateral after-cataract, Bowel, Breast surgery, Cardiac pacemaker, Colonoscopy, Gallbladder, Hysterectomy, Kidney, Knee replacement, Post-surgery back pain, Radical tonsillectomy, Tubal ligation. Medications carbidopa-levodopa 25 mg-100 mg Tab celecoxib 200 mg Cap clopidogrel 75 mg tablet, 0 Daliresp 500 mcg oral tablet fludrocortisone 0.1 mg Tab Hibiclens 4% Soap levothyroxine 100 mcg (0.1 mg) Tab oxybutynin 5 mg Tab, 5 mg= 1 tab(s), Oral, Bedtime, 6 refills traZODONE 150 mg Tab Trelegy Ellipta 100 mcg-62.5 mcg-25 mcg inhalation powder warfarin 5 mg Tab Allergies Latex (Unknown) Nickel (Unknown) gold containing compounds (Unknown) Social History Tobacco Former smoker, quit more than 30 days ago Tobacco Use:. Neve (more content not included)... Normal [facility] Comment on above: Result Comment: Elec tronically Signed By: KATHE CLARK, Isauro More\.br\Date and Time Signed: 12/01/22 15:50 EDT\.br\Electronically Co-Signed By: Angelica Montesinos MA\.br\Date and Time Co-Signed: 12/01/22 15:14 EDT Protime-INRon 11-24-2022 INR Coag (Bld) [Relative time] 2.2 {INR} [facility] [employer] Phone: [facility] [employer] Phone: VL DUP LOWER EXTREMITY VENOU S BILATERALon 11-24-2022 Khari Lira DO - 11/24/2022 [facility] Vascular Lower Extremities DVT Study Procedure Patient Name PETRA MAYER Date of Study 11/24/2022 A Date of 1940 Gender Female Age 82 year(s) Race Room Number Corporate ID # [id number] Patient MR # [id number] Print Designer Darshana Thorne, [facility] Interpreting Physician Khari Lira DO Referring Referring Physician HEMAL Lilly Nurse Practitioner Additional Comments Results were called to Muriel's office 11/24/22 @ 1200. Procedure Type of Study: Veins: Lower Extremities DVT Study, Venous Scan Lower Bilateral. Indications for Study:Edema and Hx of DVT. Patient Status:STAT. Technical Quality:Adequate visualization. Comments:Simultaneous real time imaging utilizing B-Mode, color doppler and spectral waveform analysis was performed on the bilateral lower extremities for venous examination of the deep and superficial systems. Conclusions Summary No evidence of superficial or deep venous thrombosis in both lower extremities. Signature Findings: Right Impression: Left Impression: Common femoral, femoral, deep Common femoral, femoral, deep femoral, popliteal, tibials, femoral, popliteal, tibials, peroneal, and saphenous veins were peroneal, and saphenous veins were evaluated. evaluated. All veins were compressible and with All veins were compressible and with normal doppler responses. normal doppler responses. Allergies - Allergy:*Unlisted(Drug) . Comments:Tylenol with codeine - Allergy:Latex(Miscellan eous). - Allergy:*Unlisted(Drug) . Comments:larry campbell Velocities are measured in cm/s ; Diameters are measured in cm Right Lower Extremities DVT Study Measurements Right 2D Measurements + +-------- --+ +---- ------ + !Location !Visualized!Hunteri litbrissa!Thrombosis! + +-------- --+ +---- ------ + !Common Femoral !Yes !Yes !None ! + +-------- --+ +---- ------ + !Prox Femoral !Yes !Yes !None ! + +-------- --+ +---- ------ + !Mid Femoral !Yes !Yes !None ! + +-------- --+ +---- ------ + !Dist Femoral !Yes !Yes !None ! + +-------- --+ +---- ------ + !Deep Femoral !Yes !Yes !None ! + +-------- --+ +---- ------ + !Popliteal !Yes !Yes !None ! + +-------- --+ +---- ------ + !Sapheno Femoral Junction !Yes !Yes !None ! + +-------- --+ +---- ------ + !PTV !Yes !Yes !None ! + +-------- --+ +---- ------ + !Peroneal !Yes !Yes !None ! + +-------- --+ +---- ------ + !Gastroc !Yes !Yes !None ! + +-------- --+ +---- ------ + !GSV Thigh !Yes !Yes !None ! + +-------- --+ +---- ------ + !GSV Knee !Yes !Yes !None ! + +-------- --+ +---- ------ + !GSV Ankle !Yes !Yes !None ! + +-------- --+ +---- ------ + !SSV !Yes !Yes !None ! + +-------- --+ +---- ------ + Right Doppler Measurements + -----+------+------+--- ------ + !Location !Signal!Reflux!Reflux (msec) ! + -----+------+------+--- ------ + !Common Femoral !Phasic! ! ! + -----+------+------+--- ------ + !Prox Femoral !Phasic! ! ! + -----+------+------+--- ------ + !Popliteal !Phasic! ! ! + -----+------+------+--- ------ + Left Lower Extremities DVT Study Measurements Left 2D Measurements + +-------- --+ +---- ------ + !Location !Visualized!Compressibi lity!Thrombosis! + +-------- --+ +-- (more content not included)... [employer] [facility] [employer] Phone: Radiology Study observation (narrative) [employer] Phone: VL DUP LOWER EXTREMITY VENOU S BILATERALOrdered By: Khari Lira on 11-24-2022 [employer] Work Phone: XR Knee AP and Lateral and Sanam kelley 07-02-2022 IMPRESSION: No significant change in the overall appearance or alignment of the knee arthroplasty. Optical Goods Worker: RIKA Transcribe Date/Time: Jul 02 2022 12:45P Dictated by : EPI RAWLS MD This examination was interpreted and the report reviewed and electronically signed by: EPI RAWLS MD on Jul 02 2022 12:48PM [facility] DIVISION OF RADIOLOGY * * *Final Report* * * DATE OF EXAM: Jul 02 2022 12:10PM CCX 5209 - XR KNEE 3V AP/LAT/MERCHANT RT / PROCEDURE REASON: Infection associated with internal right knee prosthesis, subsequent encounter * * * * Physician Interpretation * * * * EXAMINATION / TECHNIQUE: XR KNEE 3V AP/LAT/MERCHANT RT HISTORY: POST OP Infection associated with internal right knee prosthesis, subsequent encounter COMPARISON: 05/21/22. RESULT: Arthroplasty hardware is intact and unchanged in position. Lucency along the medial aspect of the femoral component is unchanged. The diminutive patella remains laterally displaced. There is no acute fracture. No osseous erosion. DIVISION OF RADIOLOGY [facility]/02/[facility]22 * * *Final Report* * * DATE OF EXAM: Jul 02 2022 12:10PM CCX 5209 - XR KNEE 3V AP/LAT/MERCHANT RT / PROCEDURE REASON: Infection associated with internal right knee prosthesis, subsequent encounter * * * * Physician Interpretation * * * * EXAMINATION / TECHNIQUE: XR KNEE 3V AP/LAT/MERCHANT RT HISTORY: POST OP Infection associated with internal right knee prosthesis, subsequent encounter COMPARISON: 05/21/22. RESULT: Arthroplasty hardware is intact and unchanged in position. Lucency along the medial aspect of the femoral component is unchanged. The diminutive patella remains laterally displaced. There is no acute fracture. No osseous erosion. IMPRESSION IMPRESSION: No significant change in the overall appearance or alignment of the knee arthroplasty. Optical Goods Worker: [facility] Transcribe Date/Time: Jul 02 2022 12:45P Dictated by : EPI RAWLS MD This examination was interpreted and the report reviewed and electronically signed by: EPI RAWLS MD on Jul 02 2022 12:48PM EST [facility] Radiology Study observation (narrative) Cierra Martinez XR Knee AP and Lateral and M erchantsOrdered By: [facility]cf Provider on 07-02-2022 [facility] Protime-INRon 06-30-2022 INR Coag (Bld) [Relative time] 1.5 {INR} [facility] [employer] Work Phone: [facility] [employer] Work Phone: CBC W Auto Differential pane l (Bld)on 06-13-2022 Basophils (Bld) [#/Vol] 0.08 10*3/uL Normal <0.11 [facility] Comment on above: Order Comment: Speci men Type: BLOOD SPECIMEN Ordering Facility: [facility] Address: [address] [place] [address] Performed By: #### 1 988-5 #### [facility] CLIA [id number] [address] [place] [address] [place] Basophils/100 WBC (Bld) 1.2 % Normal [facility] Comment on above: Order Comment: Speci men Type: BLOOD SPECIMEN Ordering Facility: [facility] Address: [address] [place] [address] Performed By: #### 1 988-5 #### [facility] CLIA [id number] [address] [place] [address] [place] Differential cell count method Nom (Bld) Auto Normal [facility] Comment on above: Order Comment: Speci men Type: BLOOD SPECIMEN Ordering Facility: [facility] Address: [address] [place] [address] Performed By: #### 1 988-5 #### [facility] CLIA [id number] [address] [place] [address] [place] Eosinophils (Bld) [#/Vol] 0.23 10*3/uL Normal <0.46 [facility] Comment on above: Order Comment: Speci men Type: BLOOD SPECIMEN Ordering Facility: [facility] Address: [address] [place] [address] Performed By: #### 1 988-5 #### [facility] IA [id number] [address] [place] [address] [place] Eosinophils/100 WBC (Bld) 3.6 % Normal [facility] Comment on above: Order Comment: Speci men Type: BLOOD SPECIMEN Ordering Facility: [facility] Address: [address] [place] [address] Performed By: #### 1 988-5 #### [facility] IA [id number] [address] [place] [address] [place] Erythrocyte distribution width (RBC) [Ratio] 16.6 % High 11.5-15.0 [facility] Comment on above: Order Comment: Speci men Type: BLOOD SPECIMEN Ordering Facility: [facility] Address: [address] [place] [address] Performed By: #### 1 988-5 #### [facility] IA [id number] [address] [place] [address] [place] Hematocrit (Bld) [Volume fraction] 35.1 % Low 36.0-46.0 [facility] Comment on above: Order Comment: Speci men Type: BLOOD SPECIMEN Ordering Facility: [facility] Address: [address] [place] [address] Performed By: #### 1 988-5 #### [facility] IA [id number] [address] [place] [address] [place] Hemoglobin (Bld) [Mass/Vol] 10.9 g/dL Low 11.5-15.5 [facility] Comment on above: Order Comment: Speci men Type: BLOOD SPECIMEN Ordering Facility: [facility] Address: [address] [place] [address] Performed By: #### 1 988-5 #### [facility] IA [id number] [address] [place] [address] [place] Immature granulocytes (Bld) [#/Vol] 10*3/uL Normal <0.10 [facility] Comment on above: Order Comment: Speci men Type: BLOOD SPECIMEN Ordering Facility: [facility] Address: [address] [place], [place] [address] Performed By: #### 1 988-5 #### [facility] CLIA [id number] [address] [place] [address] [place] Immature granulocytes/100 WBC (Bld) 0.3 % Normal [facility] Comment on above: Order Comment: Speci men Type: BLOOD SPECIMEN Ordering Facility: [facility] Address: [address] [place], [place] [address] Performed By: #### 1 988-5 #### [facility] IA [id number] [address] [place] [address] [place] Lymphocytes (Bld) [#/Vol] 1.13 10*3/uL Normal 1.00-4.00 [facility] Comment on above: Order Comment: Speci men Type: BLOOD SPECIMEN Ordering Facility: [facility] Address: [address] [place], [place] [address] Performed By: #### 1 988-5 #### [facility] IA [id number] [address] [place] Lymphocytes/100 WBC (Bld) 17.5 % Normal [facility] Comment on above: Order Comment: Speci men Type: BLOOD SPECIMEN Ordering Facility: [facility] Address: [address] [place], [place] [address] Performed By: #### 1 988-5 #### [facility] IA [id number] [address] [place] [address] [place] MCH (RBC) [Entitic mass] 28.3 pg Normal 26.0-34.0 [facility] Comment on above: Order Comment: Speci men Type: BLOOD SPECIMEN Ordering Facility: [facility] Address: [address] [place], [place] [address] Performed By: #### 1 988-5 #### [facility] IA [id number] [address] [place] [address] [place] MCHC (RBC) [Mass/Vol] 31.1 g/dL Normal 30.5-36.0 [facility] Comment on above: Order Comment: Speci men Type: BLOOD SPECIMEN Ordering Facility: [facility] Address: [address] [place] [address] Performed By: #### 1 988-5 #### [facility] IA [id number] [place] [address] [place] MCV (RBC) [Entitic vol] 91.2 fL Normal 80.0-100.0 [facility] Comment on above: Order Comment: Speci men Type: BLOOD SPECIMEN Ordering Facility: [facility] Address: [address] [place] [address] Performed By: #### 1 988-5 #### [facility] IA [id number] [address] [place] [address] [place] Monocytes (Bld) [#/Vol] 0.52 10*3/uL Normal <0.87 [facility] Comment on above: Order Comment: Speci men Type: BLOOD SPECIMEN Ordering Facility: [facility] Address: [address] [place] [address] Performed By: #### 1 988-5 #### [facility] IA [id number] [place] [address] [place] Monocytes/100 WBC (Bld) 8.0 % Normal [facility] Comment on above: Order Comment: Speci men Type: BLOOD SPECIMEN Ordering Facility: [facility] Address: [address] [place] [address] Performed By: #### 1 988-5 #### [facility] IA [id number] [address] [place] [address] [place] Neutrophils (Bld) [#/Vol] 4.48 10*3/uL Normal 1.45-7.50 [facility] Comment on above: Order Comment: Speci men Type: BLOOD SPECIMEN Ordering Facility: [facility] Address: [address] [place], [place] [address] Performed By: #### 1 988-5 #### [facility] IA [id number] [address] [place] Neutrophils/100 WBC (Bld) 69.4 % Normal [facility] Comment on above: Order Comment: Speci men Type: BLOOD SPECIMEN Ordering Facility: [facility] Address: [address] [place], [place] [address] Performed By: #### 1 988-5 #### [facility] IA [id number] [address] [place] [address] [place] Nucleated RBC (Bld) [#/Vol] 10*3/uL Normal <0.01 [facility] Comment on above: Order Comment: Speci men Type: BLOOD SPECIMEN Ordering Facility: [facility] Address: [address] [place], [place] [address] Performed By: #### 1 988-5 #### [facility] IA [id number] [address] [place] Nucleated RBC/100 WBC (Bld) [Ratio] 0.0 /100 WBC Normal [facility] Comment on above: Order Comment: Speci men Type: BLOOD SPECIMEN Ordering Facility: [facility] Address: [address] [place], [place] [address] Performed By: #### 1 988-5 #### [facility] IA [id number] [address] [place] [address] [place] Platelet mean volume (Bld) [Entitic vol] 9.7 fL Normal 9.0-12.7 [facility] Comment on above: Order Comment: Speci men Type: BLOOD SPECIMEN Ordering Facility: [facility] Address: [address] [place], [place] [address] Performed By: #### 1 988-5 #### [facility] IA [id number] [address] [place] [id number] [place] Platelets (Bld) [#/Vol] 317 10*3/uL Normal 150-400 [facility] Comment on above: Order Comment: Speci men Type: BLOOD SPECIMEN Ordering Facility: [facility] Address: [address] [place], [place] [address] Performed By: #### 1 988-5 #### [facility] CLIA [id number] [place] [address] [place] RBC (Bld) [#/Vol] 3.85 10*6/uL Low 3.90-5.20 [facility] Comment on above: Order Comment: Speci men Type: BLOOD SPECIMEN Ordering Facility: [facility] Address: [address] [place], [place] [address] Performed By: #### 1 988-5 #### [facility] CLIA [id number] [place] [address] [facility] [place] WBC (Bld) [#/Vol] 6.46 10*3/uL Normal 3.70-11.00 [facility] Comment on above: Order Comment: Speci men Type: BLOOD SPECIMEN Ordering Facility: [facility] Address: [address] [place], [place] [address] Performed By: #### 1 988-5 #### [facility] CLIA [id number] [facility] [place] [address] [facility] ED NOTEon 06-13-2022 ED NOTE HNO ID: [id number] Author: Carmen Villanueva RN Service: ? Author Type: Registered Nurse Type: ED Notes Filed: 06/13/2022 4:17 PM Note Text: Written and verbal discharge instructions reviewed with patient at bedside. Patient verbalized understanding. Patient discharged home in stable condition. Normal [facility] ED PROV NOTEon 06-13-2022 ED PROV NOTE HNO ID: [id number] Author: Juan Carlos Nazario PA-C Service: Emergency Medicine Author Type: Physician Internal Comb[employer]ion Engine Assembler Type: ED Provider Notes Filed: 06/13/2022 4:15 PM Note Text: ED Provider Note Patient Name: Leyla Lambert : 1940 SERVICE DATE: 06/13/22 History Patient presents with: Laceration: Pt with known laceration to RLE, with new bleeding to site, sent from appt for evaluation, denies abnormal drainage from site 81 year old female presents with with complaint of persistent bleeding from wound to her left lower extremity x1 week. Patient states she gouged, her leg with a car door and reports problems since then. Went to an appointment regarding her dialysis catheter and when they noted the bleeding, sent her in for further evaluation, treatment. Tetanus is up-to-date. Denies any appreciable pain, fever, chills, purulent drainage, redness, swelling. Quality: penetrating trauma Severity: mild Timing: as above, constant Modifying Factors: not better despite home tx with dressings Context: normal setting and activity Associated Symptoms: as above History provided by: Patient PAST MEDICAL HISTORY Diagnosis Date Acute kidney injury (HCC) Atrial fibrillation (HCC) dx 2008 Chronic airway obstruction, not elsewhere classified Chronotropic incompetence s/p pacemaker placement CKD (chronic kidney disease) Coronary atherosclerosis of unspecified type of vessel, [place] or graft s/p stents x 2 to LAD 03/10/08, s/p KAIN to mid-LAD 03/2017 Dysautonomia orthostatic hypotension syndrome Essential hypertension, benign History of DVT (deep vein thrombosis) 04/17/2022 Malignant neoplasm of breast (female), unspecified site 1989,1991 s/p b/l massectomies CARISA (obstructive sleep apnea) Other and unspecified hyperlipidemia Other diseases of pharynx, not elsewhere classified(478.29) starting on CPAP 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 so has IVC filter placed Pacemaker 04/17/2022 PE (pulmonary thromboembolism) (HCC) and DVT's 2007 s/p IVC filter 2007 Retroperitoneal hemorrhage Unspecified hypothyroidism PAST SURGICAL HISTORY Procedure Laterality Date ARTHROSCOPIC PATELLECTOMY/CAROL Right ARTHROSCOPY KNEE DIAGNOSTIC W/WO SYNOVIAL BX SPX Right 2013 Arthroscopy, knee ARTHRP KNE CONDYLEANDPLATU MEDIALANDLAT COMPARTMENTS Right 2012 Knee replacement, total CHOLECYSTECTOMY LEFT HEART CATH,PERCUTANEOUS 2009, 2014,2016, 2017, 2021 MAST MODF RAD W/AX LYMPH NOD W/WO PECT/BOBBY MIN 1989,1991 bilateral MIDLINE INSERTION/CONSULT 06/20/2018 PAST SURGICAL HISTORY OF stent x 2 PAST SURGICAL HISTORY OF ivc filter PAST SURGICAL HISTORY OF PACEMAKER INSERTION Left 03/04/2017 PAST SURGICAL HISTORY OF Bilateral cataracts PAST SURGICAL HISTORY OF VENA CAVA FILTER PLACEMENT 2007 VAGINAL HYSTERECTOMY UTERUS 250 GM/< FAMILY HISTORY Problem Relation Age of Onset COPD Father other (pulmonary embolism) Father post op Social History Tobacco Use Smoking status: Former Packs/day: 2.00 Years: 29.00 Pack years: 58.00 Types: Cigarettes Quit date: 08/17/1987 Years since quittin.8 Smokeless tobacco: Never Substance and Sexual Activity Alcohol use: No Drug use: Never Sexual activity: Yes Partners: Male ALLERGIES Allergen Reactions Acetaminophen-Codei* Unknown, GI Upset Holiday Other: See Comments sim [address] Intolerance itching Nickel Other: See Comments Seasonal Allergies Other: See Comments Latex Rash Current Facility-Administered Medications on File Prior to Encounter Medication lidocaine (PF) 20 mg/mL (2 %) injection (XYLOCAINE) NaCl 0.9% iv infusion diphenhydrAMINE 50 mg injection (BENADRYL) hydrocortisone sodium succinate (PF) 100 mg injection (Solu-CORTEF) EPINEPHrine 0.3 mg injection (EPIPEN) NaCl (PF) 0.9% 10-20 mL injection Current Outpatient Medications on File Prior to Encounter Medication Sig enoxaparin (LOVENOX) 40 mg/0.4 mL Inject 0.4 mL subcutaneously once daily. You will continue this along with your coumadin until your INR is therapeutic (2-3). When your INR is therapeutic, stop the lovenox and continue on your coumadin. Please follow up with your PCP or coumadin clinic after discharge to get your INR checked. ciprofloxacin HCl (CIPRO) 500 mg tablet Take 1 tablet by mouth twice daily. docusate sodium (COLACE) 100 mg capsule Take 1 capsule by mouth twice daily as needed for constipation. (Patient not taking: No sig reported) acetaminophen (TYLENOL) 500 mg tablet Take 2 tablets by mouth every 8 hours. calcium carbonate (TUMS) 500 mg chew Take 1 tablet by mouth twice daily. Do not take while you are taking ciprofloxacin, you may resume use after course of ciprofloxacin is complete (more content not included)... 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 MEDICATION RECONCILIATION: The patient's medications and allergies were reviewed in the electronic medical record and reconciled to the proposed procedure/treatment. DEYA-PROCEDURE DISCUSSION: The appropriate elements of the pre-procedure discussion, safety check list and sign-out were performed. TIME OUT: A time out was performed immediately prior to procedure start with the nursing and interventional team, correctly identifying the name, date of , procedure, anatomy (including marking of site and side if applicable), patient position, procedure consent form, relevant diagnostic and radiology test results, antibiotic administration if applicable, safety precautions, and procedure-specific equipment needs. Start of procedure: 1248 End of procedure: 1257 Patient position: Supine Anesthesia: No sedation Intra-service time (monitoring for moderate sedation): 0 minutes Patient monitoring: Not applicable Local anesthesia: 2 % lidocaine TECHNIQUE: The patient's chest and neck were prepped and draped using all elements of maximal sterile barrier technique (cap, mask, sterile gown, sterile gloves, a large sterile sheet, hand hygiene and cutaneous antisepsis). After local anesthesia, the suture holding the catheter was severed and the catheter was removed with gentle traction after blunt dissection. Hemostasis was obtained by direct manual compression. Incision was closed with single interrupted 3.0 Vicryl suture. Catheter intact upon removal and removed in its entirely. Exofin and Steri-strips were applied, followed by a sterile dressing. The patient tolerated the procedure well. There were no significant complications and no other complications during the procedure. CONCLUSION: The patient was comfortable and was transferred to the recovery room in stable condition. Estimated Blood Loss: Minimal Number and Type of Removed Specimens: N/A ATTENDING RADIOLOGIST: Naila Cade M.D. ADVANCED PRACTICE PROVIDER: None FINANCIAL WELLNESS COACH: None The procedure was performed by the: attending radiologist, without an conservation assistant. The attending radiologist performed the following procedural activities: Entire procedure IMPRESSION: SUCCESSFUL REMOVAL OF RIGHT TUNNELED CENTRAL VENOUS CATHETER. CATHETER INTACT UPON REMOVAL AND REMOVED IN ITS ENTIRELY. Optical Goods Worker: PSCB Transcribe Date/Time: Jun 13 2022 1:02P Dictated by : NAILA CADE MD This examination was interpreted and the report reviewed and electronically signed by: NAILA CADE MD on Jun 13 2022 1:05PM EST [id number] [facility] PT EDon 06-13-2022 PT ED HNO ID: [id number] Author: Wenceslao Rogers RN Service: Nursing Author Type: Registered Nurse Type: Patient Education Filed: 06/13/2022 12:39 PM Note Text: PATIENT EDUCATION TOPIC: PROCEDURE / SURGERY: Procedure/Surgery: manoj Removal PATIENT NAME: Leyla Lambert PATIENT LOCATION: AV Rad Proc/AV Rad Proc READINESS TO LEARN COGNITIVE ABILITY: Alert and oriented MOTIVATION TO LEARN: Interested FAMILY SUPPORT: Unable to assess - Family not present INSTRUCTION PROVIDED TO: Patient PATIENT LEARNS BEST BY: Written Instruction - Hand-outs Verbal Instruction FACTORS AFFECTING LEARNING: None PHYSICAL LIMITATIONS AFFECTING LEARNING: None LEARNING RESPONSE DIAGNOSIS: ADULT: D/C use of antibiotics PATIENT/FAMILY RESPONSE: Verbalizes understanding of: POST-PROCEDURE INSTRUCTIONS-Correct actions to take to reduce post procedure complications PRE-PROCEDURE INSTRUCTIONS-Correct action to take to follow pre-procedure instructions METHOD OF INSTRUCTION: Written instruction - handouts Verbal instruction FOLLOW-UP PLAN: Patient instructed to call with any further issues Follow-up with Primary Care INSTRUCTIONAL AIDS USED: NA SUPPLEMENTAL MATERIAL PROVIDED TO PATIENT: Home going instructions sent with pt on line removal REFERRAL (RECOMMENDATION): None Electronically Signed By: Wenceslao Rogers [facility] PT panel Coag (PPP)on 2021 INR Coag (PPP) [Relative time] 1.1 {INR} Normal 0.9-1.3 [facility] Comment on above: Order Comment: Speci men Type: BLOOD SPECIMEN Ordering Facility: [facility] Address: [address] [place], [place] [address] Result Comment: Robyn min K Antagonist (VKA) Therapeutic Range: INR 2 to 3 (Target INR of 2.5) Note: For patients treated with VKA drugs, such as warfarin, the [employer] 2012 Guideline recommends a therapeutic INR range of 2 to 3 (target INR of 2.5). This recommendation includes high-risk patients with antiphospholipid syndrome with previous arterial or venous thromboembolism, current-generation mechanical or bioprosthetic aortic heart valve replacement. Note: Patients with mechanical aortic valve replacement and additional risk factors for thromboembolic events (atrial fibrillation, previous thromboembolism, LV dysfunction, hypercoagulable conditions) or an older generation mechanical AVR (i.e., ball in-Cage) or any mechanical MVR should have a INR therapeutic range of 2.5 to 3.5 (target INR of 3). Lelo STOUT, et al. Chest 2012, 141:7S-47S Nat RA, et al. [facility] 2017, 70: 252-289 Performed By: #### 1 4979-9, 24463-6 #### [facility] CLIA [id number] [place] [address] [place] PT Coag (PPP) [Time] 11.1 s Normal 9.7-13.0 [facility] Comment on above: Order Comment: Speci men Type: BLOOD SPECIMEN Ordering Facility: [facility] Address: [address] [address] Performed By: #### 1 4979-9, 68804-7 #### [facility] CLIA [id number] [address] [place] [address] [place] aPTT PPPon 06-13-2022 aPTT Coag (PPP) [Time] 25.1 s Normal 23.0-32.4 [facility] Comment on above: Order Comment: Speci men Type: BLOOD SPECIMEN Ordering Facility: [facility] Address: [address] [address] Performed By: #### 1 4979-9, 60120-1 #### [facility] CLIA [id number] [address] [place] [address] [place] Protime-INRon 06-12-2022 INR Coag (Bld) [Relative time] 1.3 {INR} [employer] Work Phone: [employer] Work Phone: Traamine 06-09-2022 CNPN Telephone (AVXRPR) LEYLA LAMBERT ([id number]) 1940 F Date Time Provider Department 06/09/22 WENCESLAO ROGERS AVXRPR During your visit today, we recorded the following information about you: Wenceslao Rogers RN 06/09/2022 3:08 PM Signed Called pt to review Pre- procedure instructions for manoj removal on 06/13/22. No answer left VM with callback number. Allergies As of Date: 06/09/2022 Noted Allergy Reaction ACETAMINOPHEN-CODEINE 03/31/2011 16 - Unknown 8 - GI Upset COBALT 07/20/2014 14 - Other: See Comments Comments: sim T[address] 198 07/20/2014 5 - Intolerance Comments: itching NICKEL 07/20/2014 14 - Other: See Comments SEASONAL ALLERGIES 11/19/2015 14 - Other: See Comments LATEX 04/23/2016 2 - Rash Date Reviewed: 05/21/2022 Reviewed by: Mali Lemus Ma - Fully Assessed Reason for Visit: Appointment [186] Prescriptions as of 06/09/2022 - enoxaparin (LOVENOX) 40 mg/0.4 mL Inject 0.4 mL subcutaneously once daily. You will continue this along with your coumadin until your INR is therapeutic (2-3). When your INR is therapeutic, stop the lovenox and continue on your coumadin. Please follow up with your PCP or coumadin clinic after discharge to get your INR checked. - ciprofloxacin HCl (CIPRO) 500 mg tablet Take 1 tablet by mouth twice daily. - docusate sodium (COLACE) 100 mg capsule Take 1 capsule by mouth twice daily as needed for constipation. - acetaminophen (TYLENOL) 500 mg tablet Take 2 tablets by mouth every 8 hours. - calcium carbonate (TUMS) 500 mg chew Take 1 tablet by mouth twice daily. Do not take while you are taking ciprofloxacin, you may resume use after course of ciprofloxacin is complete - oxybutynin (DITROPAN) 5 mg tablet Take 5 mg by mouth daily at bedtime. - triamcinolone acetonide (KENALOG) 0.1 % cream APPLY TO AFFECTED AREAS ON THE BACK TOPICALLY WHEN FLARED TWICE DAILY. (AVOID THE FACE, ARMPITS AND GROIN) - celecoxib (CELEBREX) 200 mg capsule Take 200 mg by mouth. - clopidogrel (PLAVIX) 75 mg tablet Take 1 tablet by mouth once daily. - warfarin (COUMADIN) 5 mg tablet Take 5 mg by mouth once daily. M-W FR 7.5 mg Sun Tues Thur Sat 5 mg - amLODIPine (NORVASC) 5 mg tablet Take 1 tablet by mouth once daily. - eopwlczfpga-ixebcqpkf-x ilanter (TRELEGY ELLIPTA) 100-62.5-25 mcg Inhale 1 Puff as instructed once daily. - omeprazole (PRILOSEC) 40 mg capsule Take 40 mg by mouth once daily. - hydrALAZINE (APRESOLINE) 25 mg tablet TAKE 1 TABLET BY MOUTH NEEDED EVERY 4 HOURS WHEN YOUR SYSTOLIC BLOOD PRESSURE IS ABOVE 180 MMHG TAKE DIRECTED - levothyroxine (SYNTHROID) 100 mcg tablet Take 100 mcg by mouth. - roflumilast (DALIRESP) 500 mcg tab Take 500 mcg by mouth once daily. - traZODone (DESYREL) 150 mg tablet Take 1 tablet by mouth daily at bedtime. - carbidopa-levodopa (SINEMET 25-100) 25-100 mg per tablet Take 1 tablet by mouth every morning. Facility-Administered Medications as of 06/09/2022 - NaCl 0.9% iv infusion - diphenhydrAMINE 50 mg injection (BENADRYL) - hydrocortisone sodium succinate (PF) 100 mg injection (Solu-CORTEF) - EPINEPHrine 0.3 mg injection (EPIPEN) - NaCl (PF) 0.9% 10-20 mL injection Problem List As Of Date 06/09/2022 Noted Resolved Painful total knee replacement (HCC) [T84.84XA,*07/19/2014 Atrial fibrillation (HCC) [I48.91] Coronary atherosclerosis [I25.10] Other pulmonary embolism and infarction [I26.99] Essential hypertension, benign [I10] Breast cancer (HCC) [C50.919] COPD, group D, by GOLD 2017 classification (HCC* Status post knee surgery [Z98.890] 08/06/2016 History of pulmonary embolism [Z86.711] 03/01/2018 Mixed simple and mucopurulent chronic bronchiti*03/01/2018 Prosthetic joint infection (HCC) [T84.50XA] 06/16/2018 Malnutrition of mild degree (HCC) [E44.1] 06/17/2018 Effusion of left knee [M25.462] 03/24/2020 Hypothyroidism [E03.9] 03/24/2020 Infection [B99.9] 05/29/2021 Malnutrition of moderate degree (HCC) [E44.0] 06/01/2021 KARLEE (acute kidney injury) (HCC) [N17.9] 06/09/2021 Supratherapeutic INR [R79.1] 06/10/2021 06/17/2021 Retroperitoneal hematoma [K66.1] 06/17/2021 Hypernatremia [E87.0] 06/17/2021 06/19/2021 Hypokalemia [E87.6] 06/19/2021 History of DVT (deep vein thrombosis) [Z86.718] 04/17/2022 Pacemaker [Z95.0] 04/17/2022 MTHFR gene mutation [Z15.89] 04/17/2022 Anticoagulated [Z79.01] 04/17/2022 CARISA (obstructive sleep apnea) [G47.33] 04/17/2022 RLS (restless legs syndrome) [G25.81] 04/17/2022 Hiatal hernia [K44.9] 04/17/2022 ANTONIO (dyspnea on exertion) [R06.09] 04/17/2022 Iron deficiency anemia [D50.9] 04/18/2022 Iron malabsorption [K90.9] 04/29/2022 Infected prosthetic knee joint, subsequent enco*05/02/2022 Encounter Status:Closed by WENCESLAO ROGERS on 06/09/22 [facility] Protime-INRon 06-04-2022 INR Coag (Bld) [Relative time] 4.3 {INR} [employer] [employer] Work Phone: [employer] Work Phone: XR Knee AP and Lateral and M erchantson 05-21-2022 Addendum by Provider , [facility] [place] on 05/21/2022 10:26 PM EDT * * *Final Report* * * DATE OF EXAM: May 21 2022 12:58PM CCX 5209 - XR KNEE 3V AP/LAT/MERCHANT RT / PROCEDURE REASON: Infection associated with internal right knee prosthesis, subsequent encounter * * * * Physician Interpretation * * * * HISTORY: Infection associated with internal right knee prosthesis, subsequent encounter . TECHNIQUE: XR KNEE 3V AP/LAT/MERCHANT RT Laterality: RIGHT Number of different views (projections): 3 COMPARISON: Radiographs dated 03/31/2022 RESULT: Right total knee arthroplasty in place with no change in the hardware. Again seen is a diminutive and fragmented right patella. There is no acute fracture or dislocation. Again seen is the left knee degenerative arthritis and chondrocalcinosis. There is anterior right knee soft tissue swelling. No other significant abnormality. IMPRESSION: Anterior right knee soft tissue swelling. Right total knee arthroplasty in place with no change in the hardware. [employer] Worker: PSCB Transcribe Date/Time: May 21 2022 1:27P Dictated by : MARGARETH RODRIGUEZ MD This examination was interpreted and the report reviewed and electronically signed by: MARGARETH RODRIGUEZ MD on May 21 2022 1:28PM [facility] Radiology Study observation (narrative) C[facility] XR Knee AP and Lateral and M erchantsOrdered By: Cc Provider on 05-21-2022 [facility] CBC with Auto Differentialon 05-19-2022 Absolute Eos # 0.31 [facility] Absolute Immature Granulocyte [facility] Absolute Lymph # 0.80 Low [facility] Absolute [place] # 0.49 [facility] Basophils (Bld) [#/Vol] 0.08 10*3/uL [facility] Basophils/100 WBC (Bld) 1 % 0 - 2 % [facility] Eosinophils/100 WBC (Bld) 5 % High 1 - 4 % [facility] Immature granulocytes/100 WBC (Bld) 0 % 0 [facility] Interpretation and review of laboratory results Abnormal [facility] Lymphocytes/100 WBC (Bld) 12 % Low 24 - 43 % [facility] MCH (RBC) [Entitic mass] 28.9 pg 25.2 - 33.5 pg [facility] MCHC (RBC) [Mass/Vol] 32.3 g/dL 28.4 - 34.8 g/dL [facility] MCV (RBC) [Entitic vol] 89.5 fL 82.6 - 102.9 fL [facility] Monocytes/100 WBC (Bld) 7 % 3 - 12 % B ON [facility] NRBC Automated 0.0 0.0 per 100 WBC [facility] Platelet distribution width (Bld) [Ratio] 19.0 % High 11.8 - 14.4 % [facility] Platelet mean volume (Bld) [Entitic vol] 8.8 fL 8.1 - 13.5 fL [facility] Platelets (Bld) [#/Vol] 399 10*3/uL [facility] RBC (Bld) [#/Vol] 3.53 10*6/uL Low 3.95 - 5.11 m/uL [facility] Segmented neutrophils/100 WBC (Bld) 75 % High 36 - 65 % [facility] Segs Absolute 5.05 [facility] Comprehensive metabolic 2000 panelon 05-19-2022 Creatinine [Mass/Vol] 0.80 mg/dL 1.5 MG/DL [facility] Creatinineon 05-19-2022 Creatinine [Mass/Vol] 0.8 mg/dL 0.5 - 0.9 mg/dL [facility] GFR >60 60 - PI NF mL/min [facility] GFR Non- >60 60 - PINF mL/min [facility] Laboratory - Chemistry and C hemistry - challengeon 05-19-2022 GFR/1.73 sq M.predicted MDRD (S/P/Bld) [Vol rate/Area] [facility] Comment on above: Average GFR for 70 o r more years old: 75 mL/min/1.73sq m Chronic Kidney Disease: <60 mL/min/1.73sq m Kidney failure: <15 mL/min/1.73sq m eGFR calculated using average adult body mass. Additional eGFR calculator available at: http://www.Inaika/multiple_crcl_2012.htm Stage 1: Some kidney damage normal GFR Stage 2: Mild kidney damage GFR 60-89 Stage 3: Moderate kidney damage GFR 30-59 Stage 4: Severe kidney damage GFR 15-29 Stage 5: Severe kidney damage GFR <15 ESRD - chronic treatment by dialysis or transplant Laboratory - Hematology and Cell countson 05-19-2022 Hematocrit (Bld) [Volume fraction] 31.6 % Low 36.3 - 47.1 % [facility] Hemoglobin (Bld) [Mass/Vol] 10.2 g/dL Low 11.9 - 15.1 g/dL [facility] WBC (Bld) [#/Vol] 6.8 10*3/uL [facility] VANCOMYCIN LEVELon Vancomycin, result 12.5 10 - 20 [facility] Vancomycin Level, Troughon 1 Vancomycin Tr 12.5 ug/mL 10 - 20 ug/mL [facility] Comment on above: Higher trough serum vancomycin concentrations of 15-20 ug/mL are recommended for complicated infections such as bacteremia, endocarditis, osteomyelitis, meningitis, and hospital acquired pneumonia. [facility] Protime-INRon 05-15-2022 INR Coag (Bld) [Relative time] 2.1 {INR} [facility] Work Phone: [facility] Work Phone: Microorganism identified Cx Nom (Unsp spec)on 04-29-2022 Fungus identified Cx Nom (Unsp spec) No Fungus isolated after 28 days [facility] Fungus identified Nom (Unsp spec) No fungus seen [facility] Bacteria identified Anaer cx Nom (Unsp spec)on 04-15-2022 Microorganism identified Cx Nom (Unsp spec) Negative for anaerobes. No Cutibacterium acnes isolated. [facility] BODY FLUID CULTURE AND GRAM STAINon 04-06-2022 Bacteria identified Cx Nom (Body fld) No growth [facility] Bacteria identified Cx Nom ( Body fld)on 04-06-2022 Microscopic observation Smear Nom (Unsp spec) No organisms seen [facility] Microscopic observation Smear Nom (Unsp spec) Few Polymorphonuclear leukocytes [facility] Microscopic observation Smear Nom (Unsp spec) Many Red Blood Cells [facility] Microscopic observation Smear Nom (Unsp spec) Gram stain from primary specimen [facility] Basic Metabolic Panel w/ Ref rosemary to MGon 04-03-2022 Anion gap [Moles/Vol] 8 mmol/L Low 9 - 17 mmol/L [facility] Calcium [Mass/Vol] 9.0 mg/dL 8.6 - 10. 4 mg/dL [facility] Chloride [Moles/Vol] 109 mmol/L High 98 - 10 7 mmol/L [facility] CO2 [Moles/Vol] 24 mmol/L 20 - 31 mmol/L [facility] Creatinine [Mass/Vol] 0.96 mg/dL High 0.5 - 0.9 mg/dL [facility] GFR >60 60 - PI NF mL/min [facility] GFR Non- 56 mL/min Low 60 - PINF mL/min [facility] Glucose [Mass/Vol] 85 mg/dL 70 - 99 mg/dL [facility] Interpretation and review of laboratory results Abnormal [facility] Potassium [Moles/Vol] 4.4 mmol/L 3.7 - 5.3 mmol/L [facility] Sodium [Moles/Vol] 141 mmol/L 135 - 144 mmol/L [facility] Urea nitrogen (BldV) [Mass/Vol] 16 mg/dL 8 - 23 mg/dL [facility] Urea nitrogen/Creatinine (Bld) [Mass ratio] 17 9 - 20 [facility] EKG Rhythm Stripon [facility] Echocardiogram complete 2D w ith doppler with coloron 04-03-2022 [facility] Transthoracic Echocardiography Report (TTE) Patient Name PETRA Date of Study 04/03/2022 LEYLA James Date of 1940 Gender Female Age 81 year(s) Race Room Number 0328 Height: 63 inch, 160.02 cm Corporate ID [id number] Weight: 126 pounds, 57.2 kg # Patient Acct [id number] BSA: 1.59 m^2 BMI: 22.32 # kg/m^2 MR # [id number] Print Designer Sofía,Julia Interpreting Physician Toni Moore Fellow Referring Nurse Analy Starks [employer] Practitioner Interpreting Referring Physician Fellow Type of Study TTE procedure:2D Echocardiogram, M-Mode, Doppler, Color Doppler. Procedure Date Date: 04/03/2022 Start: 12:05 PM Study Location: [facility] Indications:Chest pain. History / Tech. Comments: Dx: chest pain Hx: CAD, HTN, CARISA, stent, COPD, pacemaker, hyperlipidemia Patient Status: Outpatient Height: 63 inches Weight: 126 pounds BSA: 1.59 m^2 BMI: 22.32 kg/m^2 BP: 179/91 mmHg Allergies - *Unlisted:(Tylenol with codeine). - Latex. - *Unlisted:(nicklel,gold colbalt). CONCLUSIONS Summary Global left ventricular systolic function appears preserved with an estimated ejection fraction of 55%. The left ventricular cavity size is within normal limits and the left ventricular septal wall thickness is severely increased without evidence of a significant resting outflow tract obstruction. Normal aortic valve structure with trivial aortic regurgitation. Anterior free space seen consistent with a small pericardial effusion or fat pad. Evidence of moderate (grade II) diastolic dysfunction is seen. Compared to the previous study of 03/09/17, the patient now has severe left ventricular septal hypertrophy. Clinical correlation required. Signature ------- ------- ------- ------- FINDINGS Left Atrium Left atrium is normal in size. Left Ventricle Global left ventricular systolic function appears preserved with an estimated ejection fraction of 55%. The left ventricular cavity size is within normal limits and the left ventricular septal wall thickness is severely increased without evidence of a significant resting outflow tract obstruction. Right Atrium Right atrium is normal in size. Right Ventricle Normal right ventricular size and function. Mitral Valve Normal mitral valve structure and function. Aortic Valve Normal aortic valve structure with trivial aortic regurgitation. Tricuspid Valve Normal tricuspid valve structure and function. Pulmonic Valve The pulmonic valve is normal in structure. Pericardial Effusion Anterior free space seen consistent with a small pericardial effusion or fat pad. Miscellaneous Evidence of moderate (grade II) diastolic dysfunction is seen. M-mode / 2D Measurements & Calculations: LVIDd:2.97 cm(3.7 - 5.6 cm) Diastolic Volume:56.2675 ml LVIDs:2.04 cm(2.2 - 4.0 cm) Systolic Volume:25 ml IVSd:1.77 cm(0.6 - 1.1 cm) Aortic Root:3.36 cm(2.0 - 3.7 cm) LVPWd:1.28 cm(0.6 - 1.1 cm) LA Dimension: 3.25 cm(1.9 - 4.0 cm) Fractional Shortenin.31 % LA volume/Index: 41.5 ml /26m^2 Calculated LVEF (%): 55.57 % AV Cusp Separation: 1.81 cm Mitral: Aortic Valve Area (P1/2-Time): 3.65 cm^2 Peak Velocity: 0.95 m/s Peak E-Wave: 0.62 m/s Mean Velocity: 0.63 m/s Peak A-Wave: 0.99 m/s Peak Gradient: 3.57 mmHg E/A Ratio: 0.62 Mean Gradient: 1.81 mmHg Peak Gradient: 1.52 mmHg Acceleration Time: 49.73 msec P1/2t: 60.25 msec AV VTI: 15.34 cm Lateral Wall E' velocity:0.05 m/s [facility] Toni Moore MD - 04/03/2022 [facility] Transthoracic Echocardiography Report (TTE) Patient Name PETRA Date of Study 04/03/2022 LEYLA James Date of 1940 Gender Female Age 81 year(s) Race Room Number 0328 Height: 63 inch, 160.02 cm Corporate ID [id number] Weight: 126 pounds, 57.2 kg # Patient Acct [id number] BSA: 1.59 m^2 BMI: 22.32 # kg/m^2 MR # [id number] Print Designer SofíaOsbaldoJulia Interpreting Physician Toni Moore Fellow Referring Nurse Analy Starks [facility] Practitioner Interpreting Referring Physician Fellow Type of Study TTE procedure:2D Echocardiogram, M-Mode, Doppler, Color Doppler. Procedure Date Date: 04/03/2022 Start: 12:05 PM Study Location: [facility] Indications:Chest pain. History / Tech. Comments: Dx: chest pain Hx: CAD, HTN, CARISA, stent, COPD, pacemaker, hyperlipidemia Patient Status: Outpatient Height: 63 inches Weight: 126 pounds BSA: 1.59 m^2 BMI: 22.32 kg/m^2 BP: 179/91 mmHg Allergies - *Unlisted:(Tylenol with codeine). - Latex. - *Unlisted:(nicklel,gold colbalt). CONCLUSIONS Summary Global left ventricular systolic function appears preserved with an estimated ejection fraction of 55%. The left ventricular cavity size is within normal limits and the left ventricular septal wall thickness is severely increased without evidence of a significant resting outflow tract obstruction. Normal aortic valve structure with trivial aortic regurgitation. Anterior free space seen consistent with a small pericardial effusion or fat pad. Evidence of moderate (grade II) diastolic dysfunction is seen. Compared to the previous study of 03/09/17, the patient now has severe left ventricular septal hypertrophy. Clinical correlation required. Signature ------ - ------ - ------ - ------ - FINDINGS Left Atrium Left atrium is normal in size. Left Ventricle Global left ventricular systolic function appears preserved with an estimated ejection fraction of 55%. The left ventricular cavity size is within normal limits and the left ventricular septal wall thickness is severely increased without evidence of a significant resting outflow tract obstruction. Right Atrium Right atrium is normal in size. Right Ventricle Normal right ventricular size and function. Mitral Valve Normal mitral valve structure and function. Aortic Valve Normal aortic valve structure with trivial aortic regurgitation. Tricuspid Valve Normal tricuspid valve structure and function. Pulmonic Valve The pulmonic valve is normal in structure. Pericardial Effusion Anterior free space seen consistent with a small pericardial effusion or fat pad. Miscellaneous Evidence of moderate (grade II) diastolic dysfunction is seen. M-mode / 2D Measurements & Calculations: LVIDd:2.97 cm(3.7 - 5.6 cm) Diastolic Volume:56.2675 ml LVIDs:2.04 cm(2.2 - 4.0 cm) Systolic Volume:25 ml IVSd:1.77 cm(0.6 - 1.1 cm) Aortic Root:3.36 cm(2.0 - 3.7 cm) LVPWd:1.28 cm(0.6 - 1.1 cm) LA Dimension: 3.25 cm(1.9 - 4.0 cm) Fractional Shortenin.31 % LA volume/Index: 41.5 ml /26m^2 Calculated LVEF (%): 55.57 % AV Cusp Separation: 1.81 cm Mitral: Aortic Valve Area (P1/2-Time): 3.65 cm^2 Peak Velocity: 0.95 m/s Peak E-Wave: 0.62 m/s Mean Velocity: 0.63 m/s Peak A-Wave: 0.99 m/s Peak Gradient: 3.57 mmHg E/A Ratio: 0.62 Mean Gradient: 1.81 mmHg Peak Gradient: 1.52 mmHg Acceleration Time: 49.73 msec P1/2t: 60.25 msec AV VTI: 15.34 cm Lateral Wall E' velocity:0.05 m/s [facility] Work Phone: [employer] Work Phone: Laboratory - Chemistry and C hemistry - challengeon 04-03-2022 GFR/1.73 sq M.predicted MDRD (S/P/Bld) [Vol rate/Area] [facility] Comment on above: Average GFR for 70 o r more years old: 75 mL/min/1.73sq m Chronic Kidney Disease: <60 mL/min/1.73sq m Kidney failure: <15 mL/min/1.73sq m eGFR calculated using average adult body mass. Additional eGFR calculator available at: http://www.Inaika/multiple_crcl_2012.htm Stage 1: Some kidney damage normal GFR Stage 2: Mild kidney damage GFR 60-89 Stage 3: Moderate kidney damage GFR 30-59 Stage 4: Severe kidney damage GFR 15-29 Stage 5: Severe kidney damage GFR <15 ESRD - chronic treatment by dialysis or transplant Lipid panel - fastingon 03-17 Cholesterol [Mass/Vol] 185 mg/dL NINF - 200 mg/dL [facility] Comment on above: Cholesterol Guidelines: <200 Desirable 200-240 Borderline >240 Undesirable Cholesterol in HDL [Mass/Vol] 47 mg/dL 40 - PINF mg/dL [facility] Comment on above: HDL Guidelines: <40 Undesirable 40-59 Borderline >59 Desirable Cholesterol in LDL [Mass/Vol] 118 mg/dL 0 - 130 mg/dL [facility] Comment on above: LDL Guidelines: <100 Desirable 100-129 Near to/above Desirable 130-159 Borderline >159 Undesirable Direct (measured) LDL and calculated LDL are not interchangeable tests. Cholesterol.total/Karlene sterol in HDL [Mass ratio] 3.9 {ratio} NINF - 5 [facility] Triglyceride [Mass/Vol] 101 mg/dL NINF - 150 mg/dL [facility] Comment on above: Triglyceride Guidelines: <150 Desirable 150-199 Borderline 200-499 High >499 Very high Based on AHA Guidelines for fasting triglyceride, May 2012. [facility] Protime-INRon 04-03-2022 INR Coag (Bld) [Relative time] 2.4 {INR} [facility] Comment on above: Non-therapeutic Range: INR = 0.9-1.2 Therapeutic Range: Moderate Anticoagulant Intensity: INR = 2.0-3.0 High Anticoagulant Intensity: INR = 2.5-3.5 Interpretation and review of laboratory results Abnormal [facility] PT Coag (PPP) [Time] 26.1 s High [facility] Troponinon 04-03-2022 Interpretation and review of laboratory results Abnormal [facility] Troponin, High Sensitivity 24 ng/L High 0 - 14 ng/L [facility] Comment on above: High Sensitivity Troponin values cannot be compared with other Troponin methodologies. Patients with high levels of Biotin oral intake (i.e >5mg/day) may have falsely decreased Troponin levels. Samples collected within 8 hours of biotin intake may require additional information for diagnosis. [facility] Brain natriuretic peptideon 04-02-2022 Natriuretic peptide B (Bld) [Mass/Vol] 1138 pg/mL High NINF - 300 pg/mL [facility] Comment on above: An age-independent cutoff point of 300 pg/ml has a 98% negative predictive value excluding acute heart failure. CBCon 04-02-2022 Hematocrit (Bld) [Volume fraction] 32.8 % Low 36.3 - 47.1 % [facility] Hemoglobin (Bld) [Mass/Vol] 10.3 g/dL Low 11.9 - 15.1 g/dL [facility] Interpretation and review of laboratory results Abnormal [facility] MCH (RBC) [Entitic mass] 27.5 pg 25.2 - 33.5 pg [facility] MCHC (RBC) [Mass/Vol] 31.4 g/dL 28.4 - 34.8 g/dL [facility] MCV (RBC) [Entitic vol] 87.7 fL 82.6 - 102.9 fL [facility] NRBC Automated 0.0 0.0 per 100 WBC [facility] Platelet distribution width (Bld) [Ratio] 15.7 % High 11.8 - 14.4 % [facility] Platelet mean volume (Bld) [Entitic vol] 9.7 fL 8.1 - 13.5 fL [facility] Platelets (Bld) [#/Vol] 295 10*3/uL [facility] RBC (Bld) [#/Vol] 3.74 10*6/uL Low 3.95 - 5.11 m/uL [facility] WBC (Bld) [#/Vol] 6.8 10*3/uL [facility][NOTE 2] Comprehensive Metabolic Pane l w/ Reflex to MGon 04-02-2022 Albumin [Mass/Vol] 3.8 g/dL 3.5 - 5.2 g/dL [facility] Albumin/Globulin [Mass ratio] 1.4 {ratio} 1 - 2.5 [facility] ALP (Bld) [Catalytic activity/Vol] 83 U/L 35 - 104 U/L [facility] ALT [Catalytic activity/Vol] 15 U/L 5 - 33 U/L [facility] Anion gap [Moles/Vol] 11 mmol/L 9 - 17 mmol/L [facility] AST [Catalytic activity/Vol] 22 U/L NINF - 32 U/L [facility] Bilirubin [Mass/Vol] 0.25 mg/dL Low 0.3 - 1 .2 mg/dL [facility] Calcium [Mass/Vol] 9.2 mg/dL 8.6 - 10. 4 mg/dL [facility] Chloride [Moles/Vol] 106 mmol/L 98 - 10 7 mmol/L [facility] CO2 [Moles/Vol] 22 mmol/L 20 - 31 mmol/L [facility] Creatinine [Mass/Vol] 1.17 mg/dL High 0.5 - 0.9 mg/dL [facility] Free PSA/Total PSA [Mass fraction] 6.5 g/dL 6.4 - 8.3 g/dL [facility] GFR 54 mL/min Low 60 - PI NF mL/min [facility] GFR Non- 44 mL/min Low 60 - PINF mL/min [facility] Glucose [Mass/Vol] 97 mg/dL 70 - 99 mg/dL [facility] Potassium [Moles/Vol] 4.3 mmol/L 3.7 - 5.3 mmol/L [facility] Sodium [Moles/Vol] 139 mmol/L 135 - 144 mmol/L [facility] Urea nitrogen (BldV) [Mass/Vol] 21 mg/dL 8 - 23 mg/dL [facility] Urea nitrogen/Creatinine (Bld) [Mass ratio] 18 9 - 20 [facility] D-dimer, quantitativeon 03-17 D-Dimer, Quant 1.53 High [facility] Comment on above: When combined with a low clinical probability, a D dimer value of <0.50 mg/L FEU is considered negative for DVT and PE (negative predictive value of 98%, sensitivity of 97%). If this test is not being used to help rule out DVT and PE, then the following reference range should be utilized: 0.00 - 0.59 mg/L FEU. The D-Dimer assay is intended for use as an aid in the diagnosis of venous thromboembolism (DVT and PE) and the results should be interpreted in conjunction with the patient's medical history, clinical presentation, and other findings. Elevated levels of D-dimer activity can be seen in any state of coagulation activation and is not recommended in patients with therapeutic dose 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 for >24 hours, fibrinolytic therapy within the previous 7 days, trauma or surgery within the previous 4 weeks, disseminated malignancies, aortic aneurysm, sepsis, severe infections, pneumonia, severe skin infections, liver cirrhosis, advanced age, coronary disease, diabetes, and . A very low percentage of patients with DVT may yield D-dimer results below the cutoff of 0.5 mg/L FEU. This is known to be more prevalent in patients with distal DVT. Interpretation and review of laboratory results Abnormal [facility] EKG 12 leadon 04-02-2022 Atrial Rate 82 BPM [facility] Work Phone: P [place] -11 degrees [facility] Work Phone: P-R Interval 220 ms [facility] Work Phone: Q-T Interval 382 ms [employer] [employer] Work Phone: QRS Duration 88 ms [facility] [employer] Work Phone: QTc Calculation (Bazett) 446 ms [facility] Work Phone: R [place] 2 degrees [facility] Work Phone: T [place] 7 degrees [employer] [employer] Work Phone: Ventricular Rate 82 BPM [facility] Work Phone: Atrial-paced rhythm with prolonged AV conduction Abnormal ECG When compared with ECG of 17-APR-2020 11:57, No significant change was found Confirmed by KARSTEN DYER ([id number]) on 04/02/2022 5:40:10 PM [facility] Karsten Dyer MD - 04/02/2022 Atrial-paced rhythm with prolonged AV conduction Abnormal ECG When compared with ECG of 17-APR-2020 11:57, No significant change was found Confirmed by KARSTEN DYER ([id number]) on 04/02/2022 5:40:10 PM [employer] [employer] Work Phone: [employer] Work Phone: EKG Rhythm Stripon 2 [facility] Laboratory - Chemistry and C hemistry - challengeon 04-02-2022 GFR/1.73 sq M.predicted MDRD (S/P/Bld) [Vol rate/Area] [facility] [facility] Comment on above: Average GFR for 70 o r more years old: 75 mL/min/1.73sq m Chronic Kidney Disease: <60 mL/min/1.73sq m Kidney failure: <15 mL/min/1.73sq m eGFR calculated using average adult body mass. Additional eGFR calculator available at: http://www.[employer].JumpTime/multiple_crcl_2012.htm Stage 1: Some kidney damage normal GFR Stage 2: Mild kidney damage GFR 60-89 Stage 3: Moderate kidney damage GFR 30-59 Stage 4: Severe kidney damage GFR 15-29 Stage 5: Severe kidney damage GFR <15 ESRD - chronic treatment by dialysis or transplant No Panel Informationon 04-02 Interpretation and review of laboratory results Abnormal [facility] Protime-INRon 04-02-2022 INR Coag (Bld) [Relative time] 3 {INR} [facility] Work Phone: [facility] Work Phone: Troponinon 04-02-2022 Interpretation and review of laboratory results Abnormal [facility] Troponin, High Sensitivity 21 ng/L High 0 - 14 ng/L [facility] Comment on above: High Sensitivity Troponin values cannot be compared with other Troponin methodologies. Patients with high levels of Biotin oral intake (i.e >5mg/day) may have falsely decreased Troponin levels. Samples collected within 8 hours of biotin intake may require additional information for diagnosis. [facility] Interpretation and review of laboratory results Abnormal [facility] Troponin, High Sensitivity 23 ng/L High 0 - 14 ng/L [facility] Comment on above: High Sensitivity Troponin values cannot be compared with other Troponin methodologies. Patients with high levels of Biotin oral intake (i.e >5mg/day) may have falsely decreased Troponin levels. Samples collected within 8 hours of biotin intake may require additional information for diagnosis. [facility] XR CHEST (2 VW)on 04-02-2022 No acute abnormality detected. [facility] RIS CONSOLIDATED EXAMINATION: TWO XRAY VIEWS OF THE CHEST 04/02/2022 1:20 pm COMPARISON: 04/17/2020 HISTORY: ORDERING SYSTEM PROVIDED HISTORY: chest pain TECHNOLOGIST PROVIDED HISTORY: If not done in ER chest pain FINDINGS: Cardial pericardial silhouette is enlarged but stable. Bipolar pacemaker again seen. Chronic interstitial opacities are again identified. No acute infiltrate. Hyperinflation on the lateral exam is noted, suggesting obstructive lung disease. Chronic blunting of the costophrenic angles on the lateral examination is noted as well, likely reflecting scarring. Bones appear demineralized. No acute bony abnormality. [facility] RIS CONSOLIDATED Abel Miller M D - 04/02/2022 EXAMINATION: TWO XRAY VIEWS OF THE CHEST 04/02/2022 1:20 pm COMPARISON: 04/17/2020 HISTORY: ORDERING SYSTEM PROVIDED HISTORY: chest pain TECHNOLOGIST PROVIDED HISTORY: If not done in ER chest pain FINDINGS: Cardial pericardial silhouette is enlarged but stable. Bipolar pacemaker again seen. Chronic interstitial opacities are again identified. No acute infiltrate. Hyperinflation on the lateral exam is noted, suggesting obstructive lung disease. Chronic blunting of the costophrenic angles on the lateral examination is noted as well, likely reflecting scarring. Bones appear demineralized. No acute bony abnormality. IMPRESSION: No acute abnormality detected. [facility] Phone: Radiology Study observation (narrative) [facility] Phone: XR CHEST (2 VW)Ordered By: Royce Miller on 04-02-2022 [facility] Phone: SYNOVIAL FL,CRYSTAL ID/STAFF REVon 04-01-2022 Crystal Prelim, SF PRELIMINARY REPORT N o diagnostic crystals seen. SEE FINAL SF PATH REVIEW [facility] Crystal Review Reviewed by Leigh Ann Atkins M.D., Ph.D [facility] Crystals LM Nom (Syn fld) None seen None seen [facility] Specimen source Nom (Unsp spec) KNEE RIGHT SYNOVIAL FLUID [facility] SYNOVIAL FLUID MANUAL DIFFon 04-01-2022 Diff Total Synovial Fluid 100 cells counted [facility] Lymph%, SF 7 [facility] Neut%, SF 93 High 0 - <25 [facility] SYNOVIAL FLUID, ROUTINEon Clarity (Unsp spec) Cloudy Abnormal Clear [facility] Clarity (Unsp spec) Clear Clear [facility] Color (Syn fld) Bloody Abnormal Yellow [facility] Color (Syn fld) Penelope Abnormal Yellow [facility] RBC Manual cnt (Syn fld) [#/Vol] 611534 /uL High <2,000 /uL [facility] Specimen source Nom (Unsp spec) KNEE RIGHT SYNOVIAL FLUID [facility] WBC Manual cnt (Syn fld) [#/Vol] 5859 /uL High 0 - 200 /uL [facility] CRP SerPl-mCncon 02-12-2022 CRP [Mass/Vol] 1.4 mg/dL High <0.9 [facility] Comment on above: Order Comment: Kyleigh longo Type: BLOOD SPECIMEN Ordering Facility: [facility] Address: [address] [place] [address] Performed By: #### 1 [id number] #### [facility] CLIA [id number] [place] [address] [place] ESR Westergren method (Bld) [Velocity]on 02-12-2022 ESR (Bld) [Velocity] 45 mm/h High 0-20 [facility] Comment on above: Order Comment: Kyeligh longo Type: BLOOD SPECIMEN Ordering Facility: [facility] Address: [address] [place] [address] Performed By: #### 4 [id number] #### [facility] CLIA [id number] [address] [place], [place] [address] [facility] Protime-INRon 02-11-2022 INR Coag (Bld) [Relative time] 1.9 {INR} [facility] Work Phone: [facility] Work Phone: Protime-INRon 01-29-2022 INR Coag (Bld) [Relative time] 4.1 {INR} [facility] Work Phone: [facility] Work Phone: Follow Up (General Surgery)o n 01-22-2022 Follow Up (General Surgery) Diagnoses/Problems Dysphagia (787.20) (R13.10) LPRD (laryngopharyngeal reflux disease) (478.79) (K21.9) Hernia, hiatal (553.3) (K44.9) Patient Discussion/Summary Continue to chew well. Eat slowly Get your knee managed. We will hopefully proceed on February COVID-19 Risk Consent for: lap hiatal hernia repair Provider has reviewed the risk of bridger COVID-19 and the impact during the post-operative or post-procedure recovery process. Provider Impressions 80 yo female being sent to be evaluated for LPR. she has been treated for fungal esophagitis and with this . She also was noted to have some abnormalities on her modified barium swallow. EMOT shows a high pressure area between the les and hiatus. The esophagram is normal. EGD shows a hiatal hernia. She also has an infection in her knee that is being treated for abs. I suspect the biggest issue is poor clearance from the hiatal hernia and we see the high pressure between the LES and the hiatus. It seems from the HH she has poor clearance but minimal reflux. We discussed fixing the hiatal hernia to improve the clearance and get rid of the high pressure zone. She also notes excess saliva when she eats. this all speaks to poor clearance. We discussed this at length. All qeusitons were answered. She has a knee infection that needs to be cleared first. She is seeing the orthopod tomorrow. She is having trouble eating. hopefully we can proceed in February. 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 Chief Complaint An interactive audio and video telecommunication system which permits real time communications between the patient (at the originating site) and provider (at the distant site) was utilized to provide this telehealth service. 81 yr old female calls and leaves tearful VM that is unable to eat, swallow and needs advice/assistance. Dr. Julio agreeable to seeing 01/22/22 for follow up. Last visit 06/2022, with planned HHR surgery canceled 12/2021 related to blood thinners / MA with stent placement. Adult Risk ScreeningAdult Risk Screening_: There are no spiritual/cultural practices/values/needs that are important to know Initial Fall Risk Screening: LEYLA has fallen in the last 6 months. She has fallen due to couple weeks ago, loss of balance, trip. Her fall resulted in the following injury: broken wrist . LEYLA does not have a fear of falling. She does not need assistance with sitting, standing or walking. Does not need assistance walking in her home. She does not need assistance in an unfamiliar setting. The patient is using an assistive device. Pain Scale: On a scale of 0 to 10, the patient rates the pain at 5. Please identify location of pain: wrist and back (Polyarthritis). Pain Quality: aching. The pain makes it hard for the patient to do these things: walking and exercise. Living Will. Living Will: Living will on file. Healthcare POA: No healthcare proxy on file. Declaration of Mental Health Treatment: No mental health treatment on file. Tobacco Screening: Has not used tobacco in the past 6 months. Type(s) of Tobacco: Last: 36 yrs Domestic Violence Screen: Does not feel threatened or abused physically, emotionally or sexually. Do you feel UNSAFE? The patient feels safe in the home. Depression/Suicide Screening: During the past 2 weeks, the patient has not felt down, depressed or hopeless. During the past 2 weeks, the patient has not felt little interest or pleasure in doing things. She does not have a risk of suicide. She has not had thoughts of harming others. Single alcohol screening question: In the past year the patient has had 5 or more drinks (men) or 4 or more drinks (women)? never time(s). Single substance abuse screening question: In the past year the patient has used a recreational drug or used a prescription drug for non-medical reasons? never time(s). Nutrition Screening: In the past month, there was not a day when I or anyone in my family went hungry because there was not enough food. Patient Education: The patient denies that they or the person with them has problems with hearing, speaking, seeing, moving around or learning The patient is comfortable filling out medical forms. Food Insecurity: 1. Within the past 12 months, you worried that your food would run out before you got money to buy more: No 2. 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 couple weeks ago fell and broke wrist ortho with cast on no surgery needed just casted it left. Back still a little sore but not issues. Surgery knee in May ever sine terrible nerve pain / Ted says not coming from knee coming from spine - epidural done to spine did not help at all - he is not calling back back found spine 02/06/22 first appt. open hearth worker said she had stent and can have surgery after the 2 (more content not included)... Normal [facility] US EXT NON VASC LIMITED LTon 01-14-2022 US EXT NON VASC LIMITED LT EXAMINATION: US EXT NON VASC LIMITED LT HISTORY: Localized swelling of left lower limb COMPARISON: No relevant comparison available. FINDINGS: Identified in the left popliteal fossa, corresponding to the patient's tenderness and pain is a focal slightly hyperechogenic mildly heterogeneous 1.6 x 0.8 x 0.7 cm area. This area does not demonstrate definite internal blood flow. IMPRESSION: Heterogeneous 1.6 cm area corresponds to the palpable abnormality and tenderness. In light of the patient's recent fall a resolving hematoma should be considered Electronically authenticated by: RENAN DAVIS Date: 2022-01-14 16:12 Normal [facility] Protime-INRon 01-01-2022 INR Coag (Bld) [Relative time] 2.3 {INR} [facility] Work Phone: [facility] Work Phone: Creatinine and Glomerular fi ltration rate.predicted panel (S/P/Bld)Ordered By: Isauro Archuleta on 12-31-2021 Creatinine [Mass/Vol] 1.05 mg/dL 0.44-1.03 [facility] Estimated glomerular filtrat ion rate (GFR) non- AmericanOrdered By: Isauro Archuleta on 12-31-2021 GFR/1.73 sq M.predicted among non-blacks MDRD (S/P/Bld) [Vol rate/Area] 50 mL/Min [facility] No Panel InformationOrdered By: Isauro Archuleta on 12-31-2021 Estimated GFR () > 60 mL/Min [facility] Comment on above: GFR estimated refere nce range: According to KDOQI guidelines, <60 ml/min/1.73m2 is sufficient to diagnose a patient with chronic kidney disease. Pharmacy Creatinine Clearance (Chem N/A [facility] Serum or plasma urea nitroge n measurement (mass/volume)Ordered By: Isauro Archuleta on 12-31-2021 Urea nitrogen [Mass/Vol] 31 mg/dL 9-23 [facility] ALLIED HEALTHon 12-30-2021 ALLIED HEALTH HNO ID: [id number] Author: Mary Jo Patrick, RT(R) Service: ? Author Type: Technologist Type: Allied Health Filed: 12/30/2021 9:56 AM Note Text: Radiology Service Progress Note PATIENT NAME: Leyla Lambert DATE OF SERVICE: December 30, 2021 TIME: 9:55 AM PATIENT IDENTITY VERIFICATION COMPLETED USING TWO (2) IDENTIFIERS: Name and Date of confirmed by patient verbally and Name and Date of confirmed by identification band. FALL SCREENING: Has the patient had 2 falls in the last year or 1 fall with injury or currently using an Ambulatory Assistive Device (Walker, Cane, Wheelchair, Crutches, etc.)? No PATIENT GENDER DATA: Female. status: : No status: NO. PATIENT RELEVANT IMPLANT DATA REVIEWED: Not Applicable RADIOLOGY DEPARTMENT: CT; Exam(s) Completed: Spine PERIPHERAL IV DATA: Not applicable SIGNED BY: Mary Jo Patrick RT(R) December 30, 2021 9:[address] [facility] [address] LUMBAR SPINE WO IVCONon 0 12-30-2021 CT LUMBAR SPINE WO IVCON * * *Final Report* * * DATE OF EXAM: Dec 30 2021 10:02AM [facility] [id number] - CT LUMBAR SPINE WO IVCON / PROCEDURE REASON: Spinal stenosis of lumbar region with neurogenic claudication * * * * Physician Interpretation * * * * COMPARISON: None. HISTORY: Spinal stenosis of lumbar region with neurogenic claudication. TECHNIQUE: CT lumbar spine without contrast. MQ: [id number] CT Radiation dose: Integrated Dose-length product (DLP) for this visit = 641 mGy*cm. CT Dose Reduction Employed: Automated exposure control (AEC) RESULT: CT LUMBAR SPINE: Acute abnormality: None. Minimal approximately 5% superior endplate height decrease is identified which is new since prior examination of T12 vertebral body which may reflect an interval development of fracture. No definite change in bone density is identified for this to represent an acute fracture but if the patient has acute back pain then further workup with MRI may be of value for characterization of age. No retropulsed bone fragment or subjacent paraspinal hematoma is identified. No additional abnormality is noted. Mild kyphoscoliosis without vertebral body anomalies. Decreased bone density indicating osteopenia. Decreased disc height, endplate changes, disc osteophyte, facet and ligamentum flavum hypertrophy indicating spondylosis. Normal alignment, vertebral height, central canal, thecal sac, spinal cord caliber and cauda equina. No additional fracture/dislocation/dickerson bluxation. Incidental note made of uncomplicated IVC filter placement. Normal paraspinal lumbar region soft tissues. T11 -- 12: Disc/joint degeneration. Patent central canal. Patent bilateral neural foramina. T12 -- L1: Disc/joint degeneration. Patent central canal. Patent bilateral neural foramina. L1 -- 2: Disc/joint degeneration. Patent central canal. Patent bilateral neural foramina. L2 -- 3: Disc/joint degeneration. Patent central canal. Patent bilateral neural foramina. L3 -- 4: Disc/joint degeneration. Patent central canal. Patent bilateral neural foramina. L4 -- 5: Disc/joint degeneration. Patent central canal. Patent bilateral neural foramina. L5 -- S1: Disc/joint degeneration. Patent central canal. Patent bilateral neural foramina. IMPRESSION: 1. Interval age-indeterminate 5% superior endplate T12 compression. 2. Mild spondylosis. 3. Patent lumbar spine central canal and neural foramina. COUNTING REFERENCE: Inferior lumbar disc is taken as L5-S1. Structural anomalies: None. [employer] Worker: [facility]ERE[facility] Transcribe Date/Time: Dec 30 2021 11:38A Dictated by : DAREK PARSON MD This examination was interpreted and the report reviewed and electronically signed by: DAREK PARSON MD on Dec 30 2021 11:45AM EST [id number] Normal [facility] No Panel Informationon 12-30 [facility] XR FOREARM 2V AP/LAT LTon XR FOREARM 2V AP/LAT LT * * *Final Repor t* * * DATE OF EXAM: Dec 30 2021 9:46AM [id number] - XR FOREARM 2V AP/LAT LT / PROCEDURE REASON: Pain in left wrist * * * * Physician Interpretation * * * * EXAMINATION / TECHNIQUE: XR WRIST 3V PA/LAT/OBL LT, XR FOREARM 2V AP/LAT LT PATIENT/TECHNOLOGIST PROVIDED HISTORY: fall this morning - pain CLINICAL INFORMATION ( PROVIDED BY ORDERING CLINICIAN) : Spinal stenosis of lumbar region, unspecified whether neurogenic claudication present Lumbar radiculopathy, chronic Pain in left wrist Spinal stenosis of lumbar region with neurogenic claudication COMPARISON: None RESULT: Forearm: No acute fracture or dislocation. Limited evaluation of the elbow is unremarkable. Wrist: No acute fracture. Small ossicle adjacent to the ulnar styloid, likely an accessory ossicle or related to prior injury. Mild degenerative changes of the triscaphe and first CMC joints. IMPRESSION: No acute fracture of the left forearm or wrist. [employer] Worker: RIKA Transcribe Date/Time: Dec 30 2021 10:14A Dictated by : ALEKSANDR MCRAE DO This examination was interpreted and the report reviewed and electronically signed by: OK SIMS MD on Dec 31 2021 1:16PM EST [id number] [facility] XR LUMBAR 3V AP/LAT/L5-S1on 12-30-2021 XR LUMBAR 3V AP/LAT/L5-S1 * * *Final Report* * * DATE OF EXAM: Dec 30 2021 9:46AM [id number] - XR LUMBAR 3V AP/LAT/L5-S1 / PROCEDURE REASON: multiple diagnoses * * * * Physician Interpretation * * * * EXAMINATION / TECHNIQUE: XR LUMBAR 3V AP/LAT/L5-S1 PATIENT/TECHNOLOGIST PROVIDED HISTORY: fall this morning - pain CLINICAL INFORMATION ( PROVIDED BY ORDERING CLINICIAN) : Spinal stenosis of lumbar region, unspecified whether neurogenic claudication present Lumbar radiculopathy, chronic Pain in left wrist Spinal stenosis of lumbar region with neurogenic claudication COMPARISON: Lumbar spine radiographs 08/12/2021, CT lumbar spine 12/30/2021 RESULT: Counting Reference: Lumbosacral junction on lateral view. For the purposes of this report, L5S1 is considered the last lumbar type disc space and L4-5 is considered the level of the iliac crest. Normal. Mild dextroscoliosis centered at T12-L1. Vertebral body heights and intervertebral disc spaces are overall maintained. The mild superior endplate depression on CT performed same day is not as well seen on radiographic technique. Mild multilevel degenerative changes with endplate osteophytes and facet arthropathy. Sacroiliac joints are maintained. Infrarenal IVC filter. IMPRESSION: No acute osseous abnormality. Mild scoliosis and degenerative changes, as described. [employer] Worker: RIKA Transcribe Date/Time: Dec 30 2021 10:16A Dictated by : ALEKSANDR MCRAE DO This examination was interpreted and the report reviewed and electronically signed by: OK SIMS MD on Dec 31 2021 1:14PM EST [id number] [facility] XR WRIST 3V PA/LAT/OBL LTon 12-30-2021 XR WRIST 3V PA/LAT/OBL LT * * *Final Report* * * DATE OF EXAM: Dec 30 2021 9:46AM [id number] - XR WRIST 3V PA/LAT/OBL LT / PROCEDURE REASON: multiple diagnoses * * * * Physician Interpretation * * * * EXAMINATION / TECHNIQUE: XR WRIST 3V PA/LAT/OBL LT, XR FOREARM 2V AP/LAT LT PATIENT/TECHNOLOGIST PROVIDED HISTORY: fall this morning - pain CLINICAL INFORMATION ( PROVIDED BY ORDERING CLINICIAN) : Spinal stenosis of lumbar region, unspecified whether neurogenic claudication present Lumbar radiculopathy, chronic Pain in left wrist Spinal stenosis of lumbar region with neurogenic claudication COMPARISON: None RESULT: Forearm: No acute fracture or dislocation. Limited evaluation of the elbow is unremarkable. Wrist: No acute fracture. Small ossicle adjacent to the ulnar styloid, likely an accessory ossicle or related to prior injury. Mild degenerative changes of the triscaphe and first CMC joints. IMPRESSION: No acute fracture of the left forearm or wrist. [employer] Worker: RIKA Transcribe Date/Time: Dec 30 2021 10:14A Dictated by : ALEKSANDR MCRAE DO This examination was interpreted and the report reviewed and electronically signed by: OK SIMS MD on Dec 31 2021 1:16PM EST [id number] [facility] Complete Blood Count + Diffe rentialon 11-29-2021 Basophils/100 WBC (Bld) 0.9 % 0.0 - 2.0 [facility] Work Phone: Erythrocyte distribution width (RBC) [Ratio] 15.7 % above high threshold See Below [facility] Work Phone: Comment on above: Reference Range: 11. 5 - 14.5 Hematocrit (Bld) [Volume fraction] 35.9 % below low threshold See Below [facility] Work Phone: Comment on above: Reference Range: 36. 0 - 46.0 Hemoglobin (Bld) [Mass/Vol] 11.3 g/dL below low threshold See Below [facility] Work Phone: Comment on above: Reference Range: 12. 0 - 16.0 Lymphocytes/100 WBC (Bld) 15.6 % See Below [facility] Work Phone: Comment on above: Reference Range: 13. 0 - 44.0 MCHC (RBC) [Mass/Vol] 31.5 g/dL below low threshold See Below [facility] Work Phone: Comment on above: Reference Range: 32. 0 - 36.0 MCV (RBC) [Entitic vol] 91 fL 80 - 100 [facility] Work Phone: Monocytes/100 WBC (Bld) 6.8 % 2.0 - 10.0 [facility] Work Phone: Neutrophils/100 WBC (Bld) 75.2 % See Below [facility] Work Phone: Comment on above: Reference Range: 40. 0 - 80.0 Platelets (Bld) [#/Vol] 394 10*3/uL 150 - 450 [facility] Work Phone: RBC (Bld) [#/Vol] 3.93 {x10E12/L} below low threshold See Below [facility] Work Phone: Comment on above: Reference Range: 4.0 0 - 5.20 WBC (Bld) [#/Vol] 6.5 10*3/uL 4.4 - 11.3 [facility] Work Phone: Complete Blood Count + Differential 0.06 {x10E9/L} See Below [facility] Work Phone: Comment on above: Reference Range: 0.0 0 - 0.10 Reference Range: 0.0 0 - 0.40 Complete Blood Count + Differential 0.44 {x10E9/L} See Below [facility] Work Phone: Comment on above: Reference Range: 0.0 5 - 0.80 Complete Blood Count + Differential 1.01 {x10E9/L} See Below [facility] Work Phone: Comment on above: Reference Range: 0.8 0 - 3.00 Complete Blood Count + Differential 4.87 {x10E9/L} See Below [facility] Work Phone: Comment on above: Reference Range: 1.6 0 - 5.50 Complete Blood Count + Differential 0.9 % 0.0 - 6.0 [facility] Work Phone: Complete Blood Count + Differential 0.6 % 0.0 - 0.9 [facility] Work Phone: Comment on above: Immature Granulocyte Count (IG) includes promyelocytes, myelocytes and metamyelocytes but does not include bands. Percent differential counts (%) should be interpreted in the context of the absolute cell counts (cells/L). Complete Blood Count + Differential 0.0 {/100_WBC} 0.0-0.0 [facility] Work Phone: Laboratory - Blood bankon ABO group Nom (Bld) A [facility] Work Phone: Blood group antibody screen Ql Negative [facility] Work Phone: Rh immune globulin screen (Bld) [Interp] Positive [facility] Work Phone: Laboratory - Chemistry and C hemistry - challengeon 11-29-2021 Albumin BCP dye [Mass/Vol] 3.5 g/dL 3.4 - 5.0 [facility] Work Phone: ALP [Catalytic activity/Vol] 81 U/L 33 - 136 [facility] Work Phone: ALT With P-5'-P [Catalytic activity/Vol] 9 U/L 7 - 45 [facility] Work Phone: Comment on above: Patients treated wit h Sulfasalazine may generate falsely decreased results for ALT. Anion gap [Moles/Vol] 14 mmol/L 10 - 20 [facility] Work Phone: AST With P-5'-P [Catalytic activity/Vol] 21 U/L 9 - 39 [facility] Work Phone: Bilirubin [Mass/Vol] 0.4 mg/dL 0.0 - 1.2 [facility] Work Phone: Calcium [Mass/Vol] 9.4 mg/dL 8.6 - 10.6 [facility] Work Phone: Chloride [Moles/Vol] 106 mmol/L 98 - 107 [facility] Work Phone: CO2 [Moles/Vol] 24 mmol/L 21 - 32 [facility] Work Phone: Creatinine [Mass/Vol] 1.00 mg/dL See Below [facility] Work Phone: Comment on above: Reference Range: 0.5 0 - 1.05 Glucose [Mass/Vol] 80 mg/dL 74 - 99 [facility] Work Phone: Potassium [Moles/Vol] 3.9 mmol/L 3.5 - 5.3 [facility] Work Phone: Protein [Mass/Vol] 6.2 g/dL below low threshold 6.4 - 8.2 [facility] Work Phone: Sodium [Moles/Vol] 140 mmol/L 136 - 145 [facility] Work Phone: Urea nitrogen [Mass/Vol] 24 mg/dL above high threshold 6 - 23 [facility] Work Phone: No Panel Informationon 11-29 56 {mL/min/1.73m2} Abnormal >90 [facility] Work Phone: Comment on above: CALCULATIONS OF DAVE MATED GFR ARE PERFORMED USING THE 2020 CKD-EPI STUDY REFIT EQUATION WITHOUT THE RACE VARIABLE FOR THE IDMS-TRACEABLE CREATININE METHODS.https://jasn.asnjournals.org/content/early/ ASN.4257049791 C-REACTIVE PROTEIN (CRP)on 0 11-27-2021 CRP [Mass/Vol] 0.6 mg/dL <0.9 mg/dL [facility] ESR Westergren method (Bld) [Velocity]on 11-27-2021 ESR (Bld) [Velocity] 35 mm/h High 0 - 20 mm/hr [facility] XR Knee AP and Lateral and M erchantson 11-27-2021 IMPRESSION: Right knee arthroplasty without interval change or new complication. 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 There is no periprosthetic fracture or lucency. No acute fracture or dislocation. Diminutive, fragmented, and laterally subluxed patella is not significantly changed compared to prior. Anterior knee soft tissue swelling is similar. Left knee is notable for mild degenerative changes and chondrocalcinosis. 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 There is no periprosthetic fracture or lucency. No acute fracture or dislocation. Diminutive, fragmented, and laterally subluxed patella is not significantly changed compared to prior. Anterior knee soft tissue swelling is similar. Left knee is notable for mild degenerative changes and chondrocalcinosis. IMPRESSION IMPRESSION: Right knee arthroplasty without interval change or new complication. [employer] Worker: PSCB Transcribe Date/Time: Nov 27 2021 2:31P Dictated by : RADHA ENAMORADO MD This examination was interpreted and the report reviewed and electronically signed by: RADHA ENAMORADO MD on Nov 27 2021 2:33PM EST [facility] Radiology Study observation (narrative) Cierra Martinez XR Knee AP and Lateral and M erchantsOrdered By: [facility] Provider on 11-27-2021 [facility] Protime-INRon 11-25-2021 INR Coag (Bld) [Relative time] 2.7 {INR} [employer] Phone: [employer] Phone: CBC W Auto Differential pane l (Bld)on 08-12-2021 Basophils (Bld) [#/Vol] 0.05 10*3/uL Normal <0.11 [facility] Comment on above: Order Comment: Speci men Type: BLOOD SPECIMEN Performed By: #### 5 7021-8, 4537-02 #### [facility] CLIA [id number] [address] [place] Basophils/100 WBC (Bld) 0.8 % Normal [facility] Comment on above: Order Comment: Speci men Type: BLOOD SPECIMEN Performed By: #### 5 7021-8, 4537-02 #### [facility] CLIA [id number] [address] [place] [address] [place] Differential cell count method Nom (Bld) Auto Normal [facility] Comment on above: Order Comment: Speci men Type: BLOOD SPECIMEN Performed By: #### 5 7021-8, 4537-02 #### [facility] CLIA [id number] [address] [place] [address] [place] Eosinophils (Bld) [#/Vol] 0.12 10*3/uL Normal <0.46 [facility] Comment on above: Order Comment: Speci men Type: BLOOD SPECIMEN Performed By: #### 5 7021-8, 4537-02 #### [facility] CLIA [id number] [address] [place] [address] [place] Eosinophils/100 WBC (Bld) 2.0 % Normal [facility] Comment on above: Order Comment: Speci men Type: BLOOD SPECIMEN Performed By: #### 5 7021-8, 4537-02 #### [facility] CLIA [id number] [address] [place] Erythrocyte distribution width (RBC) [Ratio] 15.4 % High 11.5-15.0 [facility] Comment on above: Order Comment: Speci men Type: BLOOD SPECIMEN Performed By: #### 5 7021-8, 4537-02 #### [facility] CLIA [id number] [address] Hematocrit (Bld) [Volume fraction] 34.9 % Low 36.0-46.0 [facility] Comment on above: Order Comment: Speci men Type: BLOOD SPECIMEN Performed By: #### 5 7021-8, 4537-02 #### [facility] CLIA [id number] [address] [place] Hemoglobin (Bld) [Mass/Vol] 10.9 g/dL Low 11.5-15.5 [facility] Comment on above: Order Comment: Speci men Type: BLOOD SPECIMEN Performed By: #### 5 7021-8, 4537-02 #### [facility] CLIA [id number] [address] IMMATURE GRAN % 0.3 % Normal [facility] Comment on above: Order Comment: Speci men Type: BLOOD SPECIMEN Performed By: #### 5 7021-8, 4537-02 #### [facility] CLIA [id number] [address] IMMATURE GRAN ABS <0.03 Normal <0.10 [facility] Comment on above: Order Comment: Speci men Type: BLOOD SPECIMEN Performed By: #### 5 7021-8, 4537-02 #### [facility] CLIA [id number] [address] [place] Lymphocytes (Bld) [#/Vol] 1.32 10*3/uL Normal 1.00-4.00 [facility] Comment on above: Order Comment: Speci men Type: BLOOD SPECIMEN Performed By: #### 5 7021-8, 4537-02 #### [facility] CLIA [id number] [address] Lymphocytes/100 WBC (Bld) 22.0 % Normal [facility] Comment on above: Order Comment: Speci men Type: BLOOD SPECIMEN Performed By: #### 5 7021-8, 4537-02 #### [facility] CLIA [id number] [address] MCH (RBC) [Entitic mass] 28.7 pg Normal 26.0-34.0 [facility] Comment on above: Order Comment: Speci men Type: BLOOD SPECIMEN Performed By: #### 5 7021-8, 4537-02 #### [facility] CLIA [id number] [address] MCHC (RBC) [Mass/Vol] 31.2 g/dL Normal 30.5-36.0 [facility] Comment on above: Order Comment: Speci men Type: BLOOD SPECIMEN Performed By: #### 5 7021-8, 4537-02 #### [facility] CLIA [id number] [address] MCV (RBC) [Entitic vol] 91.8 fL Normal 80.0-100.0 [facility] Comment on above: Order Comment: Speci men Type: BLOOD SPECIMEN Performed By: #### 5 7021-8, 4537-02 #### [facility] CLIA [id number] [address] [place] Monocytes (Bld) [#/Vol] 0.53 10*3/uL Normal <0.87 [facility] Comment on above: Order Comment: Speci men Type: BLOOD SPECIMEN Performed By: #### 5 7021-8, 4537-02 #### [facility] CLIA [id number] [address] Monocytes/100 WBC (Bld) 8.8 % Normal [facility] Comment on above: Order Comment: Speci men Type: BLOOD SPECIMEN Performed By: #### 5 7021-8, 4537-02 #### [facility] CLIA [id number] [address] [place] Neutrophils (Bld) [#/Vol] 3.97 10*3/uL Normal 1.45-7.50 [facility] Comment on above: Order Comment: Speci men Type: BLOOD SPECIMEN Performed By: #### 5 7021-8, 4537-02 #### [facility] CLIA [id number] [address] Neutrophils/100 WBC (Bld) 66.1 % Normal [facility] Comment on above: Order Comment: Speci men Type: BLOOD SPECIMEN Performed By: #### 5 7021-8, 4537-02 #### [facility] CLIA [id number] [address] [place] Nucleated RBC (Bld) [#/Vol] 10*3/uL Normal <0.01 [facility] Comment on above: Order Comment: Speci men Type: BLOOD SPECIMEN Performed By: #### 5 7021-8, 4537-02 #### [facility] CLIA [id number] [address] Nucleated RBC/100 WBC (Bld) [Ratio] 0.0 /100 WBC Normal 0.0 [facility] Comment on above: Order Comment: Speci men Type: BLOOD SPECIMEN Performed By: #### 5 7021-8, 4537-02 #### [facility] CLIA [id number] [address] [place] Platelet mean volume (Bld) [Entitic vol] 9.7 fL Normal 9.0-12.7 [facility] Comment on above: Order Comment: Speci men Type: BLOOD SPECIMEN Performed By: #### 5 7021-8, 4537-02 #### [facility] CLIA [id number] [address] [place] [address] [place] Platelets (Bld) [#/Vol] 309 10*3/uL Normal 150-400 [facility] Comment on above: Order Comment: Speci men Type: BLOOD SPECIMEN Performed By: #### 5 7021-8, 4537-02 #### [facility] CLIA [id number] [address] [place] [address] [place] RBC (Bld) [#/Vol] 3.80 10*6/uL Low 3.90-5.20 [facility] Comment on above: Order Comment: Speci men Type: BLOOD SPECIMEN Performed By: #### 5 7021-8, 4537-7 #### [facility] CLIA [id number] [address] WBC (Bld) [#/Vol] 6.01 10*3/uL Normal 3.70-11.00 [facility] Comment on above: Order Comment: Speci men Type: BLOOD SPECIMEN Performed By: #### 5 7021-8, 4537-7 #### [facility] CLIA [id number] [address] CRP SerPl-mCncon 08-12-2021 CRP [Mass/Vol] 0.8 mg/dL High <0.5 [facility] Comment on above: Order Comment: Speci men Type: BLOOD SPECIMEN Performed By: #### 1 988-5, 73335-3 #### [facility] CLIA [id number] [address] Comprehensive metabolic 2000 panelon 08-12-2021 Albumin [Mass/Vol] 3.4 g/dL Low 3.9-4.9 [facility] Comment on above: Order Comment: Speci men Type: BLOOD SPECIMEN Performed By: #### 1 988-5, 61717-5 #### [facility] CLIA [id number] [address] ALP [Catalytic activity/Vol] 77 U/L Normal 34-123 [facility] Comment on above: Order Comment: Speci men Type: BLOOD SPECIMEN Performed By: #### 1 988-5, 20203-3 #### [facility] CLIA [id number] [address] ALT [Catalytic activity/Vol] 9 U/L Normal 7-38 [facility] Comment on above: Order Comment: Speci men Type: BLOOD SPECIMEN Performed By: #### 1 988-5, #### [facility] CLIA [id number] [address] [place] [address] [place] Anion gap [Moles/Vol] 8 mmol/L Low 9-18 [facility] Comment on above: Order Comment: Speci men Type: BLOOD SPECIMEN Performed By: #### 1 988-5, #### [facility] CLIA [id number] [address] [place] [address] [place] AST [Catalytic activity/Vol] 19 U/L Normal 13-35 [facility] Comment on above: Order Comment: Speci men Type: BLOOD SPECIMEN Performed By: #### 1 988-5, #### [facility] CLIA [id number] [address] [place] Bilirubin [Mass/Vol] 0.3 mg/dL Normal 0.2-1.3 [facility] Comment on above: Order Comment: Speci men Type: BLOOD SPECIMEN Performed By: #### 1 988-5, #### [facility] CLIA [id number] [address] [place] [address] [place] Calcium [Mass/Vol] 9.2 mg/dL Normal 8.5-10.2 [facility] Comment on above: Order Comment: Speci men Type: BLOOD SPECIMEN Performed By: #### 1 988-5, #### [facility] CLIA [id number] [address] [place] [address] [place] Chloride [Moles/Vol] 108 mmol/L High 97-105 [facility] Comment on above: Order Comment: Speci men Type: BLOOD SPECIMEN Performed By: #### 1 988-5, #### [facility] CLIA [id number] [address] [place] [address] [place] CO2 [Moles/Vol] 24 mmol/L Normal 22-30 [facility] Comment on above: Order Comment: Speci men Type: BLOOD SPECIMEN Performed By: #### 1 988-5, 84117-8 #### [facility] CLIA [id number] [address] [place] [address] [place] Creatinine [Mass/Vol] 0.91 mg/dL Normal 0.58-0.96 [facility] Comment on above: Order Comment: Speci men Type: BLOOD SPECIMEN Performed By: #### 1 988-5, 48600-9 #### [facility] CLIA [id number] [address] [place] GFR/1.73 sq M.predicted among blacks MDRD (S/P/Bld) [Vol rate/Area] mL/min/{1.73_m2} [facility] Comment on above: Order Comment: Speci men Type: BLOOD SPECIMEN Performed By: #### 1 988-5, #### [facility] CLIA [id number] [facility] [address] [place] GFR/1.73 sq M.predicted among non-blacks MDRD (S/P/Bld) [Vol rate/Area] 59 mL/min/{1.73_m2} [facility] Comment on above: Order Comment: Speci men Type: BLOOD SPECIMEN Result Comment: eGFR (Estimated GFR) Units of measure: mL/min/1.73 meters squared eGFR is derived from the reexpressed MDRD Study equation using the following parameters: serum creatinine, age, gender and race. The creatinine assay has been calibrated to be traceable to IDMS. An eGFR <60 mL/min/1.73m2 for >3 months is consistent with chronic kidney disease. Refer to KDOQI guidelines for clinical interpretation. In patients with unstable renal function, e.g. those with acute kidney injury, the eGFR may not accurately reflect actual GFR. Performed By: #### 1 988-5, 69459-9 #### [facility] CLIA [id number] [address] [place] Glucose [Mass/Vol] 101 mg/dL High 74-99 [facility] Comment on above: Order Comment: Speci men Type: BLOOD SPECIMEN Result Comment: The [place] [employer] (ADA) provides guidance for cutoff values for fasting glucose and random glucose. The ADA defines fasting as no caloric intake for at least 8 hours. Fasting plasma glucose results between 100 to 125 mg/dL indicate increased risk for diabetes (prediabetes). Fasting plasma glucose results greater than or equal to 126 mg/dL meet the criteria for diagnosis of diabetes. In the absence of unequivocal hyperglycemia, results should be confirmed by repeat testing. In a patient with classic symptoms of hyperglycemia or hyperglycemic crisis, random plasma glucose results greater than or equal to 200 mg/dL meet the criteria for diagnosis of diabetes. Reference: Standards of Medical Care in Diabetes 2016, [place] [employer]. Diabetes Care. 2016.39(Suppl 1). Performed By: #### 1 988-5, 80738-9 #### [facility] CLIA [id number] [facility] [place] [address] [place] Potassium [Moles/Vol] 3.4 mmol/L Low 3.7-5.1 [facility] Comment on above: Order Comment: Speci men Type: BLOOD SPECIMEN Performed By: #### 1 988-5, 86044-6 #### [facility] CLIA [id number] [address] [place] [address] [place] Protein [Mass/Vol] 6.5 g/dL Normal 6.3-8.0 [facility] Comment on above: Order Comment: Speci men Type: BLOOD SPECIMEN Performed By: #### 1 988-5, #### [facility] CLIA [id number] [address] [place] [address] [place] Sodium [Moles/Vol] 140 mmol/L Normal 136-144 [facility] Comment on above: Order Comment: Speci men Type: BLOOD SPECIMEN Performed By: #### 1 988-5, 02161-8 #### [facility] CLIA [id number] [facility] [place] [address] [place] Urea nitrogen [Mass/Vol] 18 mg/dL Normal 7-21 [facility] Comment on above: Order Comment: Speci men Type: BLOOD SPECIMEN Performed By: #### 1 988-5, 88651-0 #### [facility] CLIA [id number] [address] [place], [place] [id number] [place] [address] [facility] ED NOTEon 08-12-2021 ED NOTE HNO ID: [id number] Author: José Antonio Tate RN Service: ? Author Type: Registered Nurse Type: ED Notes Filed: 08/12/2021 4:47 PM Note Text: Printed discharge instructions given to patient. Patient verbalizes understanding of discharge instructions, medication and follow up. Patient escorted to ER hospital exit in stable condition. [facility] ED NOTE HNO ID: [id number] Author: Elmer Wong RN Service: Nursing Author Type: Registered Nurse Type: ED Notes Filed: 08/12/2021 11:35 AM Note Text: ID band on. Checked two patient identifiers; name and . Comfort measures checked including pain, potty, possessions and position. Call peoples within reach. [facility] ED NOTE HNO ID: [id number] Author: Karsten Parekh RN Service: ? Author Type: Registered Nurse Type: ED Notes Filed: 08/12/2021 11:16 AM Note Text: Bed: Expected date: Expected time: Means of arrival: Comments: Petra [facility] ED PROV NOTEon 08-12-2021 ED PROV NOTE HNO ID: [id number] Author: Desiree Flower PA-C Service: Emergency Medicine Author Type: Physician [employer] Type: ED Provider Notes Filed: 08/12/2021 9:00 PM Note Text: ED Provider Note Patient Name: Leyla Lambert SERVICE DATE: 08/12/21 History Patient presents with: Knee Pain: PT is CO severe shooting R knee PN, edema, and redness x3 weeks; PT had a knee surgery in May 2021; knee is warm to touch; PT sts she had a severe infection in her R knee and was treated w antibiotics; 81-year-old female with history of multiple surgeries infections to the right knee with last operation in May in [place] presents to the ED with severe right knee pain for 3 weeks. She states she also feels burning and adtz-rzx-tawpkza sensation to the entire leg down to the foot with pain in the low back as well. The patient is anticoagulated on coumadin. She denies trauma, fever, chills, weakness or any other symptoms at this time. PAST MEDICAL HISTORY Diagnosis Date - Acute kidney injury (HCC) - Atrial fibrillation (HCC) dx 2008 - Chronic airway obstruction, not elsewhere classified - Chronotropic incompetence s/p pacemaker placement - CKD (chronic kidney disease) - Coronary atherosclerosis of unspecified type of vessel, [place] or graft s/p stents x 2 to LAD 03/10/08, s/p KAIN to mid-LAD 03/2017 - Dysautonomia orthostatic hypotension syndrome - Essential hypertension, benign - Malignant neoplasm of breast (female), unspecified site 1989,1991 s/p b/l massectomies - CARISA (obstructive sleep apnea) - Other and unspecified hyperlipidemia - Other diseases of pharynx, not elsewhere classified(478.29) starting on CPAP - 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 so has IVC filter placed - PE (pulmonary thromboembolism) (HCC) and DVT's 2007 s/p IVC filter 2007 - Retroperitoneal hemorrhage - Unspecified hypothyroidism PAST SURGICAL HISTORY Procedure Laterality Date - ARTHROSCOPIC PATELLECTOMY/CAROL Right - KNEE SCOPE,DIAGNOSTIC Right 2014 Arthroscopy, knee - MASTECTOMY, MODIFIED RADICAL 1989,1991 bilateral - MIDLINE INSERTION/CONSULT 06/20/2018 - PAST SURGICAL HISTORY OF stent x 2 - PAST SURGICAL HISTORY OF ivc filter - REMOVAL GALLBLADDER - TOTAL KNEE REPLACEMENT Right 2013 Knee replacement, total - VAGINAL HYSTERECTOMY FAMILY HISTORY Problem Relation Age of Onset - COPD Father - other (pulmonary embolism) Father post op Social History Tobacco Use - Smoking status: Former Smoker Packs/day: 2.00 Years: 29.00 Pack years: 58.00 Types: Cigarettes Quit date: 08/17/1987 Years since quittin.0 - Smokeless tobacco: Never Used Substance and Sexual Activity - Alcohol use: No - Drug use: No - Sexual activity: Yes Partners: Male ALLERGIES Allergen Reactions - Acetaminophen-Codei* Unknown, GI Upset - Holiday Other: See Comments welts - Gold Au 198 Intolerance itching - Nickel Other: See Comments - Seasonal Allergies Other: See Comments - Latex Rash Review of Systems Constitutional: Negative for chills, fatigue and fever. HENT: Negative. Respiratory: Negative. Cardiovascular: Negative. Gastrointestinal: Negative. Musculoskeletal: Positive for arthralgias, back pain, gait problem and joint swelling. Negative for myalgias, neck pain and neck stiffness. Skin: Negative for color change and wound. Neurological: Negative for weakness and numbness. Psychiatric/Behavioral: Negative. Negative for agitation, behavioral problems, confusion and decreased concentration. All other systems reviewed and are negative. Physical Exam Vitals BP Pulse Temp Temp src Resp SpO2 Weight Height 08/12/21 1105 08/12/21 1105 08/12/21 1105 08/12/21 1105 08/12/21 1105 08/12/21 1105 08/12/21 1109 08/12/21 1109 104/58 90 36.8 ?C (98.2 ?F) Oral 20 97 % 54 kg (119 lb) 1.6 m (5' 3 ) Physical Exam Vitals and nursing note reviewed. Constitutional: General: She is not in acute distress. Appearance: Normal appearance. She is well-developed. She is not ill-appearing or toxic-appearing. HENT: Head: Normocephalic and atraumatic. Nose: Nose normal. Eyes: General: Lids are normal. Conjunctiva/sclera: Conjunctivae normal. Cardiovascular: Pulses: Dorsalis pedis pulses are 2+ on the right side. Pulmonary: Effort: Pulmonary effort is normal. Breath sounds: No decreased breath sounds. Musculoskeletal: Thoracic back: Normal. No lacerations, tenderness or bony tenderness. Normal range of motion. Lumbar back: Tenderness present. No swelling, edema, deformity, signs of trauma, lacerations, spasms or bony tenderness. Normal range of motion. No scoliosis. Back: Right hip: Tenderness present. No deformity, lacerations, bony tenderness or crepitus. Normal ran (more content not included)... Normal [facility] ESR Westergren method (Bld) [Velocity]on 08-12-2021 ESR (Bld) [Velocity] 38 mm/h High 0-20 [facility] Comment on above: Order Comment: Speci men Type: BLOOD SPECIMEN Performed By: #### 5 7021-8, 4537-7 #### [facility] [facility] CLIA [id number] [address] PT panel Coag (PPP)on 2020 INR Coag (PPP) [Relative time] 1.9 {INR} High 0.9-1.3 [facility] Comment on above: Order Comment: Kyleigh longo Type: BLOOD SPECIMEN Result Comment: Robyn min K Antagonist (VKA) Therapeutic Range: INR 2 to 3 (Target INR of 2.5) Note: For patients treated with VKA drugs, such as warfarin, the [employer] 2012 Guideline recommends a therapeutic INR range of 2 to 3 (target INR of 2.5). This recommendation includes high-risk patients with antiphospholipid syndrome with previous arterial or venous thromboembolism, current-generation mechanical or bioprosthetic aortic heart valve replacement. Note: Patients with mechanical aortic valve replacement and additional risk factors for thromboembolic events (atrial fibrillation, previous thromboembolism, LV dysfunction, hypercoagulable conditions) or an older generation mechanical AVR (i.e., ball in-Cage) or any mechanical MVR should have a INR therapeutic range of 2.5 to 3.5 (target INR of 3). Lelo GH, et al. Chest 2012, 141:7S-47S Nat RA, et al. [facility] 2017, 70: 252-289 Performed By: #### 3 4528-0 #### [facility] CLIA [id number] [facility] [address] PT Coag (PPP) [Time] 20.2 s High 9.7-13.0 [facility] Comment on above: Order Comment: Kyleigh longo Type: BLOOD SPECIMEN Performed By: #### 3 4528-0 #### [facility] CLIA [id number] [address] XR HIP 3V PELV+ AP/LAT RTon 08-12-2021 XR HIP 3V PELV+ AP/LAT RT * * *Final Report* * * DATE OF EXAM: Aug 12 2021 1:31PM WFX 5352 - XR HIP 3V PELV+ AP/LAT RT / PROCEDURE REASON: Hip trauma, fx suspected, initial exam * * * * Physician Interpretation * * * * EXAMINATION: XR HIP 3V PELV+ AP/LAT RT CLINICAL HISTORY: Hip trauma, fx suspected, initial exam COMPARISON: None TECHNIQUE: AP view of the pelvis as well an AP and frog leg lateral view of the hip provided. 3 images total. RESULT: No pelvic or hip fracture seen bilaterally. The right femoral head is well seated in the acetabula. The right hip joint space is preserved. No osteophyte formation seen. The left hip joint space is preserved. The sacroiliac joints are patent bilaterally. The pubic symphysis is patent. There are degenerative changes to the partially visualized lower lumbar spine. There is inferior vena cava filter. . IMPRESSION: No pelvic or right hip fracture. There is inferior vena cava filter. Optical Goods Worker: [facility] Transcribe Date/Time: Aug 12 2021 1:34P Dictated by : VENECIA COLLINS MD This examination was interpreted and the report reviewed and electronically signed by: VENECIA COLLINS MD on Aug 12 2021 1:38PM EST [id number] [facility] XR KNEE 2V AP/LAT RTon 08-12 XR KNEE 2V AP/LAT RT * * *Final Report* * * DATE OF EXAM: Aug 12 2021 12:14PM WFX 5207 - XR KNEE 2V AP/LAT RT / PROCEDURE REASON: Joint pain, knee * * * * Physician Interpretation * * * * TECHNIQUE: XR KNEE 2V AP/LAT RT HISTORY: Joint pain, knee COMPARISON: Multiple previous radiographs from [facility], the most recent dates 06/09/2021. Initial postoperative radiograph dates 08/06/2016. RESULT: A revision hinged right total knee arthroplasty noted with lucency about the tibial tray measuring up to 0.4 cm medially and 0.2 cm anteriorly and posteriorly which has progressed since initial postoperative radiograph. Focal lucency about the femoral component in the medial femoral condyle measuring up to 0.3 cm. Findings of patellar resection with heterotopic ossification in the resection bed is noted. There is prepatellar soft tissue swelling noted. IMPRESSION: 1. Revised right total knee arthroplasty with tibial and femoral component lucencies which are unchanged from recent radiograph but have progressed since initial postoperative radiograph. Clinical correlation recommended. Optical Goods Worker: [facility] Transcribe Date/Time: Aug 12 2021 12:27P Dictated by : RAFI PURDY MD This examination was interpreted and the report reviewed and electronically signed by: RAFI PURDY MD on Aug 12 2021 12:37PM EST [id number] [facility] XR LUMBAR 3V AP/LAT/L5-S1on 08-12-2021 XR LUMBAR 3V AP/LAT/L5-S1 * * *Final Report* * * DATE OF EXAM: Aug 12 2021 1:31PM WFX 5228 - XR LUMBAR 3V AP/LAT/L5-S1 / PROCEDURE REASON: Back pain, minor trauma * * * * Physician Interpretation * * * * EXAMINATION: XR LUMBAR 3V AP/LAT/L5-S1 CLINICAL HISTORY: Back pain, minor trauma COMPARISON: None TECHNIQUE: AP, lateral, and lumbosacral spot of the lumbar spine are provided. 3 images provided. RESULT: The counting reference for this study is the lumbosacral junction. The L4-5 disc space is at the approximate level of the iliac crest. 5 non-rib bearing lumbar vertebral bodies identified. Lumbar vertebra are normal in height. No fracture seen. There is mild dextroscoliosis of the lower thoracic and lumbar spine seen on the AP view. Alignment is anatomic in the sagittal plane. There is no subluxation. Lumbar intervertebral disk spaces are preserved. There are small anterior osteophytes at L2-3, L3-4, and L4-5. Articular facets appear aligned. There are mild degenerative changes to the articular facets at L4-5. Pedicles appear grossly intact at all levels bilaterally by plain x-ray. There is inferior vena cava filter. There is partial visualization of cardiac pacemaker leads. There are atherosclerotic changes of the abdominal aorta and iliac arteries. . IMPRESSION: 1. No acute bony abnormality seen. 2. There is mild dextro scoliosis. 3. Degenerative changes as described. 4. There is inferior vena cava filter. 5. There is partial visualization of cardiac pacemaker leads. 6. There are atherosclerotic changes of the abdominal aorta and iliac arteries. Optical Goods Worker: [facility] Transcribe Date/Time: Aug 12 2021 1:34P Dictated by : VENECIA COLLINS MD This examination was interpreted and the report reviewed and electronically signed by: VENECIA COLLINS MD on Aug 12 2021 1:36PM EST [id number] [facility] BRIEF OP NOTon 07-17-2021 BRIEF OP NOT HNO ID: [id number] Author: Inessa French MD Service: Interventional Radiology Author Type: Physician Type: Brief Op Note Filed: 07/17/2021 3:08 PM Note Text: BRIEF OPERATIVE / PROCEDURE NOTE LOG ID: [id number] SURGERY/PROCEDURE DATE: 07/17/2021 INCISION/PROCEDURE START TIME: 3:02 PM INCISION CLOSE/PROCEDURE END TIME: 3:06 PM SURGEON(S)/PROCEDURALIS T(S) AND FINANCIAL WELLNESS COACH(S): Surgeon(s) and Role: * Inessa French MD - Primary No Additional Staff SURGERY/PROCEDURE(S): Manoj removal ANESTHESIA: Local FINDINGS: Right chest Manoj removed intact. ESTIMATED BLOOD LOSS: <5 mls SPECIMENS: None COMPLICATIONS: None PRE-OP/PRE-PROCEDURE DIAGNOSIS: joint infection, completed therapy POST-OP/POST-PROCEDURE DIAGNOSIS: Same as Preop SIGNATURE: Inessa French MD PATIENT NAME: Leyla Lambert DATE: July 17, 2021 TIME: 3:07 PM [facility] HISTORY PHYSICALon HISTORY PHYSICAL HNO ID: [id number] Author: Inessa French MD Service: Interventional Radiology Author Type: Physician Type: HANDP Filed: 07/17/2021 2:49 PM Note Text: UPDATED HISTORY AND PHYSICAL EXAMINATION SERVICE DATE: 07/17/2021 SERVICE TIME: 2:49 PM PHYSICAL EXAM MUST BE COMPLETED ON ADMISSION PROCEDURE SCHEDULED: Procedure(s): REMOVE TUNNELED CV CATHETER (Pending) RADIOLOGY ORDER PLACED: The History and Physical (completed in the past 30 days) has been reviewed and the patient has been examined. The contents accurately reflect the patient's condition with the following additions or revisions since the HANDP was completed. Examination indicates no changes. This HANDP can be found in the Electronic Medical Record dated 06/28/2021. SIGNATURE: Inessa French MD PATIENT NAME: Leyla Lambert DATE: July 17, 2021 TIME: 2:49 PM PAGER: [facility] IR CVC TUNNEL NO PORT REMOVE on 07-17-2021 IR CVC TUNNEL NO PORT REMOVE * * *Final Report* * * DATE OF EXAM: Jul 17 2021 3:08PM [facility] 7670 - IR CVC TUNNEL NO PORT REMOVE / PROCEDURE REASON: INFECTION * * * * Physician Interpretation * * * * PROCEDURE: TUNNELED CENTRAL VENOUS CATHETER REMOVAL Procedural Personnel Attending physician(s): Inessa French M.D. Fellow physician(s): None Resident physician(s): None Advanced practice provider(s): None Medical Student(s): None Pre-procedure diagnosis: Joint infection, completed antibiotic therapy Post-procedure diagnosis: Same Indication: Catheter no longer needed Additional clinical history: None PROCEDURE SUMMARY: - Tunneled central venous catheter removal - Additional procedure(s): None PROCEDURE DETAILS: Pre-procedure Transfusion of blood products: No Medication reconciliation: The patient's medications and allergies were reviewed in the electronic medical record and reconciled to the proposed procedure/treatment. Deya-procedure discussion: The appropriate elements of the pre-procedure discussion, safety check list and sign-out were performed. Time out: A time out was performed immediately prior to procedure start with the nursing and interventional team, correctly identifying the name, date of , procedure, anatomy (including marking of site and side if applicable), patient position, procedure consent form, relevant diagnostic and radiology test results, antibiotic administration if applicable, safety precautions, and procedure-specific equipment needs. Start of procedure: 3:02 PM End of procedure: 3:06 PM Patient position: Supine Preparation: The site was prepared and draped using all elements of maximal sterile barrier technique including sterile gloves, sterile gown, cap, mask, large sterile sheet, hand hygiene and cutaneous antisepsis. Contrast: Contrast agent: Contrast volume (mL): Image Guidance: None RADIATION DOSE: FLUOROSCOPIC RADIATION SUMMARY: Plane A, Air Kerma: 0.0 mGy Dose Area Product (DAP): 0 Fluoro Time: 0 min:sec Radiation dose exceed 5 Gy: No If radiation dose exceeded 5 Gy, was counseling and instructional brochure provided: N/A ANESTHESIA/SEDATION: Level of anesthesia/sedation: No sedation Anesthesia/sedation administered by: Not applicable Total intra-service sedation time (minutes): 0 Local anesthesia: 2 % lidocaine Preparation The site was prepared and draped using maximal sterile barrier technique including cutaneous antisepsis. Catheter removal Local anesthesia was administered. The suture holding the catheter was severed and catheter was removed with gentle traction without any dissection. Closure Hemostasis was achieved with manual compression. Sterile dressing(s) applied. Additional Details Additional description of procedure: None Equipment details: None Number and Type of Removed Specimens: : N/A Estimated blood loss (mL): Less than 10 Standardized report: [id number] [id number] COMPLICATIONS: There were no immediate complications and no other complications. CONCLUSION: The patient was comfortable and was discharged home in stable condition. The procedure was performed by the: attending radiologist, without an conservation assistant. The attending radiologist performed the following procedural activities: Entire procedure IMPRESSION: REMOVAL OF RIGHT-SIDED TUNNELED MANOJ CATHETER. PLAN: Please re-consult interventional radiology if new catheter placement is desired. ATTESTATION: Signer name: Inessa French MD I attest that I was present for the entire procedure. I agree with the report as written. Optical Goods Worker: [facility] Transcribe Date/Time: Jul 17 2021 3:12P Dictated by : INESSA FRENCH MD This examination was interpreted and the report reviewed and electronically signed by: INESSA FRENCH MD on Jul 17 2021 3:13PM EST [id number] [facility] ED 07-17-2021 PT ED HNO ID: [id number] Author: Betsey Montaño RN Service: Radiology Author Type: Registered Nurse Type: Patient Education Filed: 07/17/2021 3:00 PM Note Text: PATIENT EDUCATION TOPIC: PROCEDURE / SURGERY: Procedure/Surgery: Manoj removal PATIENT NAME: Leyla Lambert PATIENT LOCATION: AV Rad Proc/AV Rad Proc READINESS TO LEARN COGNITIVE ABILITY: Alert and oriented MOTIVATION TO LEARN: Interested FAMILY SUPPORT: High - Very involved in pt care INSTRUCTION PROVIDED TO: Patient PATIENT LEARNS BEST BY: Individual Instruction Written Instruction - Hand-outs Verbal Instruction FACTORS AFFECTING LEARNING: None PHYSICAL LIMITATIONS AFFECTING LEARNING: Pain and Limited Mobility LEARNING RESPONSE 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 PATIENT/FAMILY RESPONSE: Verbalizes understanding of: POST-PROCEDURE INSTRUCTIONS-Correct actions to take to reduce post procedure complications PRE-PROCEDURE INSTRUCTIONS-Correct action to take to follow pre-procedure instructions METHOD OF INSTRUCTION: Individual instruction Written instruction - handouts Verbal instruction FOLLOW-UP PLAN: Patient instructed to call with any further issues Follow-up with Primary Care INSTRUCTIONAL AIDS USED: Printed post procedure instructions SUPPLEMENTAL MATERIAL PROVIDED TO PATIENT: after tunneled central venous catheter removal given to patient REFERRAL (RECOMMENDATION): None Electronically Signed By: Betsey Spence [facility] Tramaine 07-16-2021 ASHA Telephone (FVFXRY) LEYLA LAMBERT ([id number]) 1940 F Date Time Provider Department 07/16/21 DAWN WREN FVFXRY During your visit today, we recorded the following information about you: Dawn Wren, RT(R) 07/16/2021 6:53 PM Signed You are scheduled for a catheter removal, On 07/17/2021. You are to arrive at 2:30 pmand Report to [facility] for Sedation Cases: [facility]:1st floor Admitting Desk. You can expect to be here for 2 hours. Risk Modeler/Transportation: How will you be arriving for your procedure? Private car. You will need a responsible adult to accompany you to and from the procedure. Your class c driver is required to stay with you until you are taken into the procedure room. spoke with Leyla and confirmed catheter removal for 07/17/2021. Allergies As of Date: 07/16/2021 Noted Allergy Reaction ACETAMINOPHEN-CODEINE 03/31/2011 16 - Unknown 8 - GI Upset COBALT 07/20/2014 14 - Other: See Comments Comments: sim BAILEY 198 07/20/2014 5 - Intolerance Comments: itching NICKEL 07/20/2014 14 - Other: See Comments SEASONAL ALLERGIES 11/19/2015 14 - Other: See Comments LATEX 04/23/2016 2 - Rash Date Reviewed: 07/04/2021 Reviewed by: Mali Lemus Ma - Fully Assessed Reason for Visit: Radiology Pre Procedure Instructions [1506] Prescriptions as of 07/16/2021 - oxyCODONE IR (ROXICODONE) 5 mg immediate release tablet Take 1 tablet by mouth every 6 hours as needed for pain for up to 7 days. for pain. - calcium carbonate (TUMS) 500 mg chew Take 1 tablet by mouth twice daily. - therapeutic multivitamin-minerals (THERA-M PLUS) 9 mg iron-400 mcg tablet Take 1 tablet by mouth once daily. - ascorbic acid, vitamin C, (VITAMIN C) 500 mg tablet Take 1 tablet by mouth twice daily with meals for 21 doses. - potassium chloride (K-TAB) 10 mEq tablet Take 2 tablets by mouth once daily. - amLODIPine (NORVASC) 5 mg tablet Take 1 tablet by mouth once daily. - enoxaparin (LOVENOX) 30 mg/0.3 mL injection Inject 0.3 mL subcutaneously once daily. - cqlalfoecgg-ccbdclxqw-u ilanter (TRELEGY ELLIPTA) 100-62.5-25 mcg Inhale 1 Puff as instructed once daily. - omeprazole (PRILOSEC) 40 mg capsule Take 40 mg by mouth once daily. - aspirin, enteric coated (ECOTRIN LOW STRENGTH) 81 mg EC tablet Take 1 tablet by mouth once daily. - doxycycline monohydrate 100 mg tablet Take 1 tablet by mouth twice daily. YOU WILL BEGIN DOXYCYCLINE ONCE YOUR IV ANTIBIOTICS ARE COMPLETED. - fludrocortisone (FLORINEF) 0.1 mg tablet Take 0.1 mg by mouth once daily. - hydrALAZINE (APRESOLINE) 25 mg tablet TAKE 1 TABLET BY MOUTH NEEDED EVERY 4 HOURS WHEN YOUR SYSTOLIC BLOOD PRESSURE IS ABOVE 180 MMHG TAKE DIRECTED - levothyroxine (SYNTHROID) 100 mcg tablet Take 100 mcg by mouth. - roflumilast (DALIRESP) 500 mcg tab Take 500 mcg by mouth once daily. - traZODone (DESYREL) 150 mg tablet Take 1 tablet by mouth daily at bedtime. - carbidopa-levodopa (SINEMET 25-100) 25-100 mg per tablet Take 1 tablet by mouth every morning. 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] 06/16/2018 Malnutrition of mild degree (HCC) [E44.1] 06/17/2018 Effusion of left knee [M25.462] 03/24/2020 Hypothyroidism [E03.9] 03/24/2020 Infection [B99.9] 05/29/2021 Malnutrition of moderate degree (HCC) [E44.0] 06/01/2021 KARLEE (acute kidney injury) (HCC) [N17.9] 06/09/2021 Supratherapeutic INR [R79.1] 06/10/2021 06/17/2021 Retroperitoneal hematoma [K66.1] 06/17/2021 Hypernatremia [E87.0] 06/17/2021 06/19/2021 Hypokalemia [E87.6] 06/19/2021 Encounter Status:Closed by DAWN WREN on 07/16/21 [facility] Protime-INRon 07-08-2021 INR Coag (Bld) [Relative time] 1.9 {INR} [employer] Work Phone: [employer] Work Phone: XR Knee AP and Lateral and M erchantson 07-04-2021 IMPRESSION: 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 Optical Goods Worker: [facility] Transcribe Date/Time: Jul 04 2021 10:45A Dictated by : PHUONG WAGNER MD This examination was interpreted and the report reviewed and electronically signed by: MARGARETH RODRIGUEZ MD on Jul 04 2021 2:30PM [facility] DIVISION OF RADIOLOGY * * *Final Report* * * DATE OF EXAM: Jul 04 2021 10:20AM CCX 5209 - XR KNEE 3V AP/LAT/MERCHANT RT / PROCEDURE REASON: S/P revision of total knee, right * * * * Physician Interpretation * * * * EXAMINATION / TECHNIQUE: XR KNEE 3V AP/LAT/MERCHANT RT PATIENT/TECHNOLOGIST PROVIDED HISTORY: POST OP RIGHT KNEE CLINICAL INFORMATION ( PROVIDED BY ORDERING CLINICIAN) : S/P revision of total knee, right COMPARISON: Right knee radiographs 06/09/2021 RESULT: Postoperative changes are visualized of constrained total knee arthroplasty. However appears intact, alignment unchanged. No evidence for hardware failure. Lateral subluxation and well-corticated fragmentation of the patella, unchanged from prior exam. No acute fractures or dislocations. Soft tissue swelling and joint effusion not significantly changed from prior exam. DIVISION OF RADIOLOGY Provider, [facility] - 07/04/2021 * * *Final Report* * * DATE OF EXAM: Jul 04 2021 10:20AM CCX 5209 - XR KNEE 3V AP/LAT/MERCHANT RT / PROCEDURE REASON: S/P revision of total knee, right * * * * Physician Interpretation * * * * EXAMINATION / TECHNIQUE: XR KNEE 3V AP/LAT/MERCHANT RT PATIENT/TECHNOLOGIST PROVIDED HISTORY: POST OP RIGHT KNEE CLINICAL INFORMATION ( PROVIDED BY ORDERING CLINICIAN) : S/P revision of total knee, right COMPARISON: Right knee radiographs 06/09/2021 RESULT: Postoperative changes are visualized of constrained total knee arthroplasty. However appears intact, alignment unchanged. No evidence for hardware failure. Lateral subluxation and well-corticated fragmentation of the patella, unchanged from prior exam. No acute fractures or dislocations. Soft tissue swelling and joint effusion not significantly changed from prior exam. 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 Optical Goods Worker: [facility] Transcribe Date/Time: Jul 04 2021 10:45A Dictated by : PHUONG WAGNER MD This examination was interpreted and the report reviewed and electronically signed by: MARGARETH RODRIGUEZ MD on Jul 04 2021 2:30PM EST [facility] Radiology Study observation (narrative) [facility] XR Knee AP and Lateral and M erchantsOrdered By: [facility]cf Provider on 07-04-2021 [facility] C-Reactive Proteinon 021 CRP [Mass/Vol] 6.4 mg/L High 0.0 - 5.0 mg/L [facility] [employer] Interpretation and review of laboratory results Abnormal [facility] [employer] CBC Auto Differentialon 06-17 Absolute Eos # 0.28 [facility] th Absolute Immature Granulocyte 0.03 [facility] Absolute Lymph # 1.20 [facility] Absolute [place] # 0.43 [facility] Basophils (Bld) [#/Vol] 0.08 10*3/uL [facility] Basophils/100 WBC (Bld) 2 % 0 - 2 % POS on CLOUD Differential Type NOT REPORTED [facility] [employer] Eosinophils/100 WBC (Bld) 5 % High 1 - 4 % [facility] [employer] Hematocrit (Bld) [Volume fraction] 31.5 % Low 36.3 - 47.1 % [facility] Hemoglobin.gastrointest inal spec 1 Ql (Stl) 9.8 g/dL Low 11.9 - 15.1 g/dL [facility] Immature granulocytes/100 WBC (Bld) 1 % High 0 [facility] Interpretation and review of laboratory results Abnormal [facility] [employer] Lymphocytes/100 WBC (Bld) 23 % Low 24 - 43 % [facility] [employer] MCH (RBC) [Entitic mass] 29.6 pg 25.2 - 33.5 pg [facility] [employer] MCHC (RBC) [Mass/Vol] 31.1 g/dL 28.4 - 34.8 g/dL [facility] [employer] MCV (RBC) [Entitic vol] 95.2 fL 82.6 - 102.9 fL [facility] Monocytes/100 WBC (Bld) 8 % 3 - 12 % [employer] NRBC Automated 0.0 0.0 per 100 WBC [facility] Platelet distribution width (Bld) [Ratio] 19.6 % High 11.8 - 14.4 % [facility] Platelet Estimate NOT REPORTED [facility] [employer] Platelet mean volume (Bld) [Entitic vol] 9.8 fL 8.1 - 13.5 fL [employer] Platelets (Bld) [#/Vol] 393 10*3/uL [facility] [employer] RBC (Bld) [#/Vol] 3.31 10*6/uL Low 3.95 - 5.11 m/uL [facility] [employer] RBC (Bld) [#/Vol] NOT REPORTED [facility] [employer] Segmented neutrophils/100 WBC (Bld) 61 % 36 - 65 % [facility] [employer] Segs Absolute 3.21 [facility] [#/Vol] 5.2 10*3/uL [facility] [employer] WBC (Bld) [#/Vol] NOT REPORTED [facility] Creatinine, Serumon 07-01-20 Creatinine [Mass/Vol] 1.04 mg/dL High 0.50 - 0.90 mg/dL [facility] [employer] GFR >60 >60 mL/min [facility] GFR Non- 51 mL/min Low >60 [facility] Interpretation and review of laboratory results Abnormal [facility] Laboratory - Chemistry and C hemistry - challengeon 07-01-2021 GFR/1.73 sq M.predicted MDRD (S/P/Bld) [Vol rate/Area] [facility] Comment on above: Average GFR for 70 o r more years old: 75 mL/min/1.73sq m Chronic Kidney Disease: <60 mL/min/1.73sq m Kidney failure: <15 mL/min/1.73sq m eGFR calculated using average adult body mass. Additional eGFR calculator available at: http://www.[employer]/multiple_crcl_2012.htm Stage 1: Some kidney damage normal GFR Stage 2: Mild kidney damage GFR 60-89 Stage 3: Moderate kidney damage GFR 30-59 Stage 4: Severe kidney damage GFR 15-29 Stage 5: Severe kidney damage GFR <15 ESRD - chronic treatment by dialysis or transplant Tobacco Screening.on 021 Fall risk assessment b) One or more fall s in the last year [facility] Work Phone: Tobacco use status [facility] b) No M [facility] Work Phone: Protime-INROrdered By: Histo rical Provider on 05-09-2021 INR Coag (Bld) [Relative time] 1.6 {INR} [facility] Work Phone: [facility] Work Phone: No Panel Informationon 05-01 [email or web address] ?={[id number]} [facility] Work Phone: IS-Bbtdhwg[facility] Work Phone: [email or web address] ?={[id number]} [facility] Work Phone: TM-Cfjsgkx[facility] Work Phone: No Panel Informationon 04-09 [email or web address] ?={[id number]} [facility] Work Phone: [facility] Work Phone: Tobacco Screening.on 021 Fall risk assessment b) One or more fall s in the last year [facility] Work Phone: Tobacco use status CPHS b) No [facility] Work Phone: Protime-INROrdered By: Histo rical Provider on 03-19-2021 INR Coag (Bld) [Relative time] 2.4 {INR} [facility] Work Phone: [facility] Work Phone: GLYCOHEMOGLOBIN A1Con 2020 ADA RECOMMENDATION ADA THERAPEUTIC TARG ET 6.0 - 7.0 ACTION SUGGESTED > 7.0 Normal [facility] Comment on above: Performed By: #### A 1C #### [facility] [address] [place], [place] [id number] Jenniferlizeth Hernandez Glucose [Mass/Vol] 111 mg/dL Normal [facility] Comment on above: Performed By: #### A 1C #### [facility] [address] [id number] Jennifer Mary HbA1c (Bld) [Mass fraction] 5.5 % Normal <=6.0 [facility] Comment on above: Performed By: #### A 1C #### [facility] [address] [place], [place] [id number] Jennifer Mary CBC AUTO DIFFon 03-14-2021 BASO # 0.1 103/ul Normal 0.0-0.1 [facility] Comment on above: Performed By: #### C BC #### [facility] [address] [place] [address] Jennifer Hernandez Basophils/100 WBC (Bld) 0.9 % Normal 0.2-2.0 [facility] Comment on above: Performed By: #### C BC #### [facility] [address] [place], [place] [id number] Jenniferlizeth Pintoen EO # 0.1 103/ul Normal 0.0-0.7 [facility] Comment on above: Performed By: #### C BC #### [facility] [address] [place], [place] [id number] Jennifer Hernandez Eosinophils/100 WBC (Bld) 1.3 % Normal 0.9-7.0 [facility] Comment on above: Performed By: #### C BC #### [facility] [address] [place], [place] [id number] Jenniferlizeth Hernandez Erythrocyte distribution width (RBC) [Ratio] 15.7 % Critically high 11.0-15.0 [facility] Comment on above: Performed By: #### C BC #### [facility] [address] [place], [place] [id number] Jennifer Mary Hematocrit (Bld) [Volume fraction] 40.1 % Normal 36.0-48.0 [facility] Comment on above: Performed By: #### C BC #### [facility] [address] [place] [address] Jennifer Mary Hemoglobin (Bld) [Mass/Vol] 12.1 g/dL Normal 12.0-16.0 [facility] Comment on above: Performed By: #### C BC #### [facility] [address] [place] [address] Jenniferlizeth Hernandez IG # 0.03 10e3/ul Normal 0.00-0.03 [facility] Comment on above: Performed By: #### C BC #### [facility] [address] [place] [address] Jennifer Mary IG % 0.4 % Normal 0.0-0.5 [facility] Comment on above: Performed By: #### C BC #### [facility] [address] [place] [address] Jennifer Mary LYMPH # 1.8 103/ul Normal 1.2-3.8 [facility] Comment on above: Performed By: #### C BC #### [facility] [address] [place] [address] Jennifer Hernandez Lymphocytes/100 WBC (Bld) 24.2 % Normal 20.5-60.0 [facility] Comment on above: Performed By: #### C BC #### [facility] [address] [place] [address] Jennifer Hernandez MANUAL DIFF REQ NO Normal [facility] Comment on above: Performed By: #### C BC #### [facility] [address] [place] [address] Jenniferlizeth Hernandez MCH (RBC) [Entitic mass] 27.1 pg Normal 26.7-34.0 [facility] Comment on above: Performed By: #### C BC #### [facility] [address] [place] [address] Jenniferlizeth Hernandez MCHC (RBC) [Mass/Vol] 30.2 g/dL Normal 29.9-35.2 [facility] Comment on above: Performed By: #### C BC #### [facility] [address] [place] [address] Jenniferlizeth Hernandez MCV (RBC) [Entitic vol] 89.7 fL Normal 81.0-99.0 [facility] Comment on above: Performed By: #### C BC #### [facility] [address] [place], [place] [id number] Jennifer Pintoen MONO # 0.5 103/ul Normal 0.3-0.8 [facility] Comment on above: Performed By: #### C BC #### [facility] [address] [place], [place] [id number] Jennifer Mary Monocytes/100 WBC (Bld) 6.8 % Normal 1.7-12.0 [facility] Comment on above: Performed By: #### C BC #### [facility] [address] [place] [address] Jennifer Mary NEUT # 5.0 103/ul Normal 1.4-6.5 [facility] Comment on above: Performed By: #### C BC #### [facility] [address] [place] [address] Jenniferlizeth Pintoen Neutrophils/100 WBC (Bld) 66.4 % Normal 43.0-75.0 [facility] Comment on above: Performed By: #### C BC #### [facility] [address] [place], [place] [id number] Jenniferlizeth Pintoen Platelet mean volume (Bld) [Entitic vol] 10.0 fL Normal 9.5-13.5 [facility] Comment on above: Performed By: #### C BC #### [facility] [address] [place] [address] Jennifer Mary PLT 405 103/ul Normal 150-450 [facility] Comment on above: Performed By: #### C BC #### [facility] [address] [place] [address] Jennifer Mary RBC 4.47 106/ul Normal 4.20-5.40 [facility] Comment on above: Performed By: #### C BC #### [facility] [address] [place] [address] Jennifer Mary WBC 7.5 103/ul Normal 4.0-11.0 [facility] Comment on above: Performed By: #### C BC #### [facility] [address] [place], [place] [address] Jennifer Mary FREE T3on 03-14-2021 FREE T3 1.95 pg/mlL Critically low 2.77-5.27 [facility] Comment on above: Performed By: #### L IPID, FT3, AST, ALT, BMP, TSH #### [facility] [address] [place], [place] [address] Jennifer Mary FREE T4on 03-14-2021 Free T4 [Mass/Vol] 1.13 ng/dL Normal 0.78-2.19 [facility] Comment on above: Performed By: #### F T4 #### [facility] [address] [place], [place] [id number] Jennifer Mary LIPID PROFILEon 03-14-2021 CHOL-HDL RATIO NORM SEE BELOW Normal [facility] Comment on above: Result Comment: 3.3 - 4.4 LOW RISK 4.4 - 7.1 AVERAGE RISK 7.1 - 11.0 MODERATE RISK >11.0 HIGH RISK Performed By: #### L IPID, FT3, AST, ALT, BMP, TSH #### [facility] [address] [id number] Jennifer Mary Cholesterol [Mass/Vol] 205 mg/dL Critically high <=200 [facility] Comment on above: Performed By: #### L IPID, FT3, AST, ALT, BMP, TSH #### [facility] [address] [id number] Jennifer Mary Cholesterol in HDL [Mass/Vol] 44 mg/dL Normal [facility] Comment on above: Performed By: #### L IPID, FT3, AST, ALT, BMP, TSH #### [facility] [address] [id number] Jennifer Mary Cholesterol in LDL [Mass/Vol] 129.0 mg/dL Normal [facility] Comment on above: Performed By: #### L IPID, FT3, AST, ALT, BMP, TSH #### [facility] [address] [id number] Jennifer Mary Cholesterol.total/Karlene sterol in HDL [Mass ratio] 4.7 {ratio} Normal [facility] Comment on above: Performed By: #### L IPID, FT3, AST, ALT, BMP, TSH #### [facility] [address] [address] Jennifer Mary HDL NORMAL > or = 60 mg/dl - LO W CARDIOVASCULAR RISK <40 mg/dl - HIGH CARDIOVASCULAR RISK Normal [facility] Comment on above: Performed By: #### L IPID, FT3, AST, ALT, BMP, TSH #### [facility] [address] [address] Jennifer Mary LDL CALC NORMAL SEE BELOW Normal [facility] Comment on above: Result Comment: <100 mg/dl OPTIMAL 100 - 129 mg/dl NEAR OR ABOVE OPTIMAL 130 - 159 mg/dl BORDERLINE HIGH 160 - 189 mg/dl HIGH >190 mg/dl VERY HIGH Performed By: #### L IPID, FT3, AST, ALT, BMP, TSH #### [facility] [address] [address] Jennifer Mary Triglyceride [Mass/Vol] 160 mg/dL Critically high <=150 [facility] Comment on above: Performed By: #### L IPID, FT3, AST, ALT, BMP, TSH #### [facility] [address] [address] Jennifer Mary VLDL CALC 32.0 mg/dL Normal [facility] Comment on above: Performed By: #### L IPID, FT3, AST, ALT, BMP, TSH #### [facility] [address] [address] Jennifer Mary PROF CHEM 8 (BAS METB)on Anion gap [Moles/Vol] 10.0 mmol/L Normal [facility] Comment on above: Performed By: #### L IPID, FT3, AST, ALT, BMP, TSH #### [facility] [address] [address] Jennifer Mary Calcium [Mass/Vol] 8.7 mg/dL Normal 8.4-10.2 [facility] Comment on above: Performed By: #### L IPID, FT3, AST, ALT, BMP, TSH #### [facility] [address] [address] Jennifer Mary Chloride [Moles/Vol] 107 mmol/L Normal 98-107 [facility] Comment on above: Performed By: #### L IPID, FT3, AST, ALT, BMP, TSH #### [facility] [address] [address] Jennifer Mary CO2 [Moles/Vol] 27.0 mmol/L Normal 22.0-30.0 [facility] Comment on above: Performed By: #### L IPID, FT3, AST, ALT, BMP, TSH #### [facility] [address] [place] [address] Jennifer Mary Creatinine [Mass/Vol] 0.95 mg/dL Normal 0.52-1.04 [facility] Comment on above: Performed By: #### L IPID, FT3, AST, ALT, BMP, TSH #### [facility] [address] [place] [address] Jennifer Mary EGFR-AF CAMEROONIAN >60 Normal >=60 [facility] Comment on above: Performed By: #### L IPID, FT3, AST, ALT, BMP, TSH #### [facility] [address] [place] [address] Jennifer Mary EGFR-NON AF CAMEROONIAN 56 mL/min/1.73m2 Critically low >=60 [facility] Comment on above: Performed By: #### L IPID, FT3, AST, ALT, BMP, TSH #### [facility] [address] [place] [address] Jennifer Mary Glucose [Mass/Vol] 149 mg/dL Critically high 74-106 [facility] Comment on above: Performed By: #### L IPID, FT3, AST, ALT, BMP, TSH #### [facility] [address] [place] [address] Jennifer Mary Potassium [Moles/Vol] 4.0 mmol/L Normal 3.4-5.0 [facility] Comment on above: Performed By: #### L IPID, FT3, AST, ALT, BMP, TSH #### [facility] [address] [place] [address] Jennifer Mary Sodium [Moles/Vol] 140 mmol/L Normal 137-145 [facility] Comment on above: Performed By: #### L IPID, FT3, AST, ALT, BMP, TSH #### [facility] [address] [place] [address] Jennifer Mary Urea nitrogen [Mass/Vol] 14.0 mg/dL Normal 7.0-17.0 [facility] Comment on above: Performed By: #### L IPID, FT3, AST, ALT, BMP, TSH #### [facility] [address] [place] [address] Jennifer Mary Urea nitrogen/Creatinine [Mass ratio] 14.7 mg/mg Normal [facility] Comment on above: Performed By: #### L IPID, FT3, AST, ALT, BMP, TSH #### [facility] [address] [place] [address] Jennifer Mary SGOTon 03-14-2021 AST [Catalytic activity/Vol] 17 U/L Normal 14-36 [facility] Comment on above: Performed By: #### L IPID, FT3, AST, ALT, BMP, TSH #### [facility] [address] [place] [address] Jennifer Mary SGPTon 03-14-2021 ALT [Catalytic activity/Vol] 10 U/L Normal 9-52 [facility] Comment on above: Performed By: #### L IPID, FT3, AST, ALT, BMP, TSH #### [facility] [address] [place] [address] Jennifer Mary TSHon 03-14-2021 TSH 2.167 uIU/mL Normal 0.470-4.68 0 [facility] Comment on above: Performed By: #### L IPID, FT3, AST, ALT, BMP, TSH #### [facility] [address] [place] [address] Jennifer Mary TSH RANGE SEE BELOW Normal [facility] Comment on above: Result Comment: <0.3 4 UIU/ml HYPERTHYROID 0.34-5.60 UIU/ml EUTHYROID >5.60 UIU/ml HYPOTHYROID Performed By: #### L IPID, FT3, AST, ALT, BMP, TSH #### [facility] [address] [address] Jennifer Hernandez Beta-2 Transferinon 03-05-20 21 Beta-2 transferrin Ql (Body fld) Not detected [facility] Work Phone: Comment on above: Due to sample matrix , unable to concentrate sample to desired 10X concentration. Sensitivity of assay may be compromised.INTERPRETIVE INFORMATION: Beta-2 TransferrinDetection of a beta-2 transferrin band by DAMIAN is diagnostic for the presence of cerebrospinal fluid (CSF). This test is useful in the differential diagnosis for CSF otorrhea or CSF rhinorrhea. Beta-2 transferrin is not detected by this methodology in normal serum, tears, saliva, sputum, nasal, or aural fluid.This test was developed and its performance characteristics determined by [facility]. It has not been cleared or approved by the [place] Food and Drug Administration. This test was performed in a CLIA certified laboratory and is intended for clinical purposes.Performed By: [facility] [place] [id number] Director: Cortney Ortiz MD Tobacco Screening.on 021 Fall risk assessment b) One or more fall s in the last year [facility] Work Phone: Tobacco use status CPHS b) No [facility] Work Phone: No Panel Informationon 02-21 Normal [facility] Work Phone: Protime-INROrdered By: Histo rical Provider on 02-20-2021 INR Coag (Bld) [Relative time] 2.6 {INR} [facility] Work Phone: [facility] Work Phone: CT Sinuses Without Contrast Volumetric Surgical Planningon 02-14-2021 CT Sinuses Without Contrast Volumetric Surgical Planning Normal [facility] Work Phone: Tobacco Screening.on Fall risk assessment b) One or more fall s in the last year [facility] Work Phone: Tobacco use status CP b) No M [facility] Work Phone: Protime-INROrdered By: Jose mckeon Provider on 01-28-2021 INR Coag (Bld) [Relative time] 3.3 {INR} [facility] Work Phone: [facility] Work Phone: Tobacco Screening.on Fall risk assessment b) One or more fall s in the last year [facility] Work Phone: Tobacco use status CP b) No M [facility] Work Phone: Protime-INROrdered By: Jose mckeon Provider on 12-17-2020 INR Coag (Bld) [Relative time] 3.6 {INR} [facility] Work Phone: XR HIP GENERAL 3V PELV/AP/LA T LTon 12-14-2020 [facility] Protime-INRon 07-11-2020 INR Coag (PPP) [Relative time] 1.6 {INR} [facility] [place] History and Physical - Surgi rick Update < 30 dayson 07-05-2020 History and Physical - Surgical Update < 30 days History & Physical Reviewed: I have reviewed the History and Physical dated: 20-Jun-2020 History and Physical reviewed and relevant findings noted. Patient examined to review pertinent physical findings.: No significant changes Home Medications Reviewed: no changes noted Allergies Reviewed: no changes noted ERAS (Enhanced Recovery After Surgery): ERAS Patient: no Consent: COVID-19 Consent: COVID-19 Risk ConsentSurgeon has reviewed carvalho risks related to the risk of bridger COVID-19 and if they contract COVID-19 what the risks are. Signatures/Attestation: Note Completion: Attending Provider Inpatient Certification StatementObservation patient/other outpatient visits Electronic Signatures: Garland Vincent) (Signed 05-Jul-2020 11:25) Authored: History & Physical Reviewed, ERAS, Consent, Note Completion Last Updated: 05-Jul-2020 11:25 by Garland Vincent) [facility] Homegoing Instructionson Homegoing Instructions Additional Instructions: Belongings Returned: Valuables/Medications/B elongings Returnedyes Electronic Signatures: Elvin GuzmánRN) (Signed 05-Jul-2020 12:36) Authored: Additional Instructions Last Updated: 05-Jul-2020 12:36 by Elvin Guzmán (RN) [facility] Operative Reports - [facility] on 07-05-2020 Operative Reports - [place] [id number] Patient Name: LEYLA LAMBERT : 1940 Date of Service: 07/05/2020 Patient Location: AOR AOR0 [id number] Patient Type: O Surgeon: Garland Vincent MD Report Type: Operative Reports PREOPERATIVE DIAGNOSES: 1. Rhinorrhea. 2. Chronic rhinitis. POSTOPERATIVE DIAGNOSES: 1. Rhinorrhea. 2. Chronic rhinitis. PROCEDURES: 1. Bilateral posterior nasal cavity cryoablation with ClariFix device. 2. Bilateral nasal endoscopy. SURGEON: Dr. Garland Vincent. FINANCIAL WELLNESS COACH(S): None. COMPLICATIONS: None. ESTIMATED BLOOD LOSS: Less than 5 cc. ANESTHESIA: General endotracheal anesthesia. SPECIMENS: None. FINDINGS: Successful cryoablation bilaterally. INDICATIONS FOR PROCEDURE: Leyla Lambert is an 79-year-old female who I initially met on June 20, 2020. She had ongoing nasal drainage that was refractory to multiple different medical therapies. She also had collected for beta 2 transferrin and this was negative. Given her ongoing symptoms despite medical therapy, she was comfortable moving forward with surgical intervention. DESCRIPTION OF PROCEDURE: After informed consent was obtained and all questions were answered, the patient was brought to the operating room and placed supine on the operating room table. General anesthesia was induced by the anesthesia staff, and the patient was orally intubated. The table was turned 90 degrees, and Afrin-soaked pledgets were placed within both the patient's nasal cavities. Bilateral nasal endoscopy was performed. Nasal endoscopy on each side demonstrated no purulence or polyposis at either middle meatus or sphenoethmoid recess. There were no concerning lesions within either nasal cavity. Bilateral posterior nasal cavity cryoablation was performed. Under endoscopic guidance, the ClariFix device was placed within the right nasal cavity and placed over the posterior nerve supply at the junction of the middle turbinate and the lateral nasal wall. Successful cryoablation was performed. An identical procedure was performed on the left-hand side. Hemostasis was achieved with Afrin-soaked pledgets. The patient was turned over to the anesthesia staff and extubated in the operating room without complication. She was transported to the postanesthesia care unit in satisfactory condition. I attest that Dr. Garland Vincent performed the entirety of the surgical procedure himself and there were no intraoperative complications noted. Garland Vincent MD EST TT: 07/05/2020 03:18 PM EST DICTATION NUMBER: [id number] VIRIDIANA JOB NUMBER: [id number] CC: Epi Andrews, [id number] Electronic Signatures: Garland Vincent) (Signed on 05-Jul-2020 16:26) Authored Unsigned, Draft (SYS GENERATED) (Entered on 05-Jul-2020 15:18) Entered Last Updated: 05-Jul-2020 16:26 by Garland Vincent) [facility] Patient Profile - Preop v2on 07-05-2020 Patient Profile - Preop v2 Profile: Initial Info: How to be AddressedJoyce Spoken Language PreferredEnglish Source of Informationpatient Are you currently using the Personal Electronic Health Record or 58.comno Are you interested in learning more about [employer] for the management of your healthyes, information provided Email [email or web address] for [email or web address] [email or web address] Primary Contact Name and NumberCarlos () [phone] Limitations on Visitors/Phone Callsnone Patient Belongingsremains with patient Patient Belongings Remaining with Patientclothing Medications Brought to Hospitalno General Health: Weight in kg59.6 kilogram(s) Weight in hln983.3 pound(s) Weight Methodactual (measured) Scale Typestanding Height in feet5 feet Height in inches3 inch(es) Height in cm160 centimeter(s) Height Methodheight measured BMI (kg/m2)23.281 square meter Patient or Family Member Reaction to Anesthesiano previous reaction Blood Avoidance/Restrictionsn one Previous Transfusion Reactionno Health Mgmt: Symptoms/Conditions Managed at Homecardiovascular; respiratory; gastrointestinal; cancer; endocrine Cancer Symptoms/Conditionsbrea st Cardiovascular Symptoms/Conditionshype rtension Cardiovascular Symptoms/Conditions CommentOrthostatic Hypotension Endocrine Symptoms/Conditionsthyr oid disease Gastrointestinal Symptoms/Conditionsrefl ux/heartburn Respiratory Symptoms/Conditionsasth ma; COPD Barriers to Managing Healthnone Relationship/Environ: Living Arrangementshouse Lives Withspouse Resource/Environmental Concernsnone [facility] Anticipated at Transitionnone Substance: Current or Former Substance Use never: Cigarette/Tobacco, e-Cigarette/Vaping, Alcohol, Street Drugs Risk Screens: COVID-19 Screening Completedno exposure or symptoms Advance Directive/DNRyes Advance Directive typeLiving Will Living Will AvailabilityLiving Will not available now During the past month, have you often been bothered by feeling down, depressed or hopelessno During the past month, have you often had little interest or pleasure in doing thingsno Have you had any thoughts of harming yourselfno Have you had any thoughts of harming anyone elseno Are you or have you been threatened or abused physically,emotionally or sexually abused by anyoneno Do you feel UNSAFE going back to the place you are livingno Patient is Able to be Assessed for Learningyes Factors Influencing Readiness to Learninterest in learning; pain Factors that Impact Ability to Learnnone Devices/Methods Used to Communicateglasses Learning Preferencesverbal instruction; written material Cultural Considerationsnone Developmental Considerationsnone Quaker Considerationsnone Other learner availableno Falls RiskPatient location auto qualifies him/her for HIGH RISK. Are there any cultural, spiritual, latter day practices/values/needs that are important for us to knowno Pain Scalenumerical 0-10 Pain Scale Educationteaching provided Current Pain Level0 = None Acceptable Pain Level6 = Moderate Expression of Pain (nonverbal)verbalizatio n Chronic Painyes Chronic Back pain locationupper, lower, back Chronic Lower Extremity pain locationknee, right Information Review: Allergies, Home Meds and Significant Events have been Reviewed and Verified with Patient/Familyyes Allergy, Intolerance, Adverse Event: Allergies: NKDA: Active Latex: Latex, Rash, Active Metals/Minerals: Environment, Rash, Active Intolerances: Tylenol with Codeine: Drug, Nausea/Vomiting, Active Electronic Signatures: Yana Benavidez) (Signed 05-Jul-2020 11:23) Authored: Initial Info, General Health, Health Mgmt, Relationship/Environ, Substance, Risk Screens, Additional Information Last Updated: 05-Jul-2020 11:23 by Yana Benavidez (RN) Normal [facility] Preop Checkliston 07-05-2020 Preop Checklist Preop Checklist: Preop Checklist: Arrival [id number] Arrival Time10:48 Procedure TypeESS NPO [id number] 17:00 ID Band Onyes Allergy Bandyes Consent Signedpending H&P Completepending Anesthesia Assessment Completedpending EKG Performednot ordered Chest X-Ray Performednot ordered HCG Urine TestN/A Chlorhexadine Bath Givennot applicable Nasal Antiseptic Appliednot applicable Hair Washednot applicable Soap and water bath with hair shampoo the night before surgerynot applicable Hat placed on infant prior to transportnot applicable SCD's Appliedyes HAN Hose Appliednot ordered Denturesplaced in locker Prostheticsnot applicable Hearing Aidsnot applicable Valuables Securedplaced in locker some sent with Glasses / Contactsnot applicable Bowel Prepno Cardiovascular Assessment: Apicalregular Radial Pulsespalpable Pedal Pulsespalpable Extremitieswarm Respiratory Assessment: Respirationsunlabored Air Exchangegood, equal Breath Soundsclear Neurological Assessment: Level of Consciousnessalert, oriented Mobilitymoves all extremities Able to Express Selfyes Age Appropriateyes Emotional Statuscalm Preop Education: Pain Scales and Managementyes Language / Communication: Language / CommunicationEnglish Electronic Signatures: Yana Benavidez (OMAR) (Signed 05-Jul-2020 11:08) Authored: Preop Checklist Last Updated: 05-Jul-2020 11:08 by Yana Benavidez (RN) Normal [facility] BASIC METABOLIC PANELon 11-1 Anion gap [Moles/Vol] 9 mmol/L Low 10 - 20 [facility] Comment on above: Performed By: #### B MP #### [facility] [address] [facility] [place], [place] [phone] Calcium [Mass/Vol] 9.2 mg/dL Normal 8.6 - 10.3 [facility] Comment on above: Performed By: #### B MP #### [facility] [address] [facility] [place], [place] [phone] Chloride [Moles/Vol] 106 mmol/L Normal 98 - 107 [facility] Comment on above: Performed By: #### B MP #### [facility] [address] [facility] [place], [place] [phone] Creatinine [Mass/Vol] 0.87 mg/dL Normal 0.50 - 1.05 [facility] Comment on above: Performed By: #### B MP #### [facility] [address] [facility] [place], [place] [phone] GFR- AM. >60 Normal >60 [facility] Comment on above: Result Comment: CALC ULATIONS OF ESTIMATED GFR ARE PERFORMED USING THE MDRD STUDY EQUATION FOR THE IDMS-TRACEABLE CREATININE METHODS. CLIN CHEM 2007;53:766-72 Performed By: #### B MP #### [facility] [address] [facility] [place], [place] [phone] GFR-NON AM. >60 Normal >60 [facility] Comment on above: Performed By: #### B MP #### [facility] [address] [facility] [place], [place] [phone] Glucose [Mass/Vol] 88 mg/dL Normal 74 - 99 [facility] Comment on above: Performed By: #### B MP #### [facility] [address] [facility] [place], [place] [phone] HCO3 (Bld) [Moles/Vol] 28 mmol/L Normal 21 - 32 [facility] Comment on above: Performed By: #### B MP #### [facility] [address] [facility] [place], [place] [phone] Potassium [Moles/Vol] 4.4 mmol/L Normal 3.5 - 5.3 [facility] Comment on above: Performed By: #### B MP #### [facility] [address] [facility] [place], [place] [phone] Sodium [Moles/Vol] 139 mmol/L Normal 136 - 145 [facility] Comment on above: Performed By: #### B MP #### [facility] [address] [facility] [place], [place] [phone] Urea nitrogen [Mass/Vol] 19 mg/dL Normal 6 - 23 [facility] Comment on above: Performed By: #### B MP #### [facility] [address] [facility] [place], [place] [phone] CBCon 07-03-2020 Erythrocyte distribution width (RBC) [Ratio] 15.5 % High 11.5 - 14.5 [facility] Comment on above: Performed By: #### C BC #### [facility] [address] [facility] [place], [place] [phone] Hematocrit (Bld) [Volume fraction] 40.0 % Normal 36.0 - 46.0 [facility] Comment on above: Performed By: #### C BC #### [facility] [address] [facility] [place], [place] [phone] Hemoglobin (Bld) [Mass/Vol] 13.0 g/dL Normal 12.0 - 16.0 [facility] Comment on above: Performed By: #### C BC #### [facility] [address] [facility] [place], [place] [phone] MCHC (RBC) [Mass/Vol] 32.5 g/dL Normal 32.0 - 36.0 [facility] Comment on above: Performed By: #### C BC #### [facility] [address] [facility] [place], [place] [phone] MCV (RBC) [Entitic vol] 85 fL Normal 80 - 100 [facility] Comment on above: Performed By: #### C BC #### [facility] [address] [facility] [place], [place] [phone] Platelets (Bld) [#/Vol] 356 10*3/uL Normal 150 - 450 [facility] Comment on above: Performed By: #### C BC #### [facility] [address] [facility], [place] [phone] RBC (Bld) [#/Vol] 4.69 x10E12/L Normal 4.00 - 5.20 [facility] Comment on above: Performed By: #### C BC #### [facility] [address] [facility], [place] [phone] WBC (Bld) [#/Vol] 7.0 10*3/uL Normal 4.4 - 11.3 [facility] Comment on above: Performed By: #### C BC #### [address], [place] [phone] COAGULATION SCREENon 020 aPTT Coag (Bld) [Time] 30 s Normal 25 - 35 [facility] Comment on above: Result Comment: THE APTT IS NO LONGER USED FOR MONITORING UNFRACTIONATED HEPARIN THERAPY. FOR MONITORING HEPARIN THERAPY, USE THE HEPARIN ASSAY. Performed By: #### C OAGS #### [facility] [address] [facility], [place] [phone] INR Coag (PPP) [Relative time] 1.1 {INR} Normal 0.9 - 1.1 [facility] Comment on above: Performed By: #### C OAGS #### [facility] [address] [facility], [place] [phone] PT Coag (PPP) [Time] 13.3 s Normal 10.1 - 13.3 [facility] Comment on above: Performed By: #### C OAGS #### [facility] [address] [facility], [place] [phone] Protime-INRon 06-25-2020 INR Coag (PPP) [Relative time] 1.4 {INR} [facility], [place] Protime-INRon 05-28-2020 INR Coag (PPP) [Relative time] 1.9 {INR} [facility] [place], [place] Basic Metabolic Panel w/ Ref rosemary to MGon 04-17-2020 Anion gap [Moles/Vol] 13 mmol/L 9 - 17 mmol/L [place] Bun/Cre Ratio 18 [place], [place] Calcium [Mass/Vol] 9.0 mg/dL 8.6 - 10. 4 mg/dL [place] Chloride [Moles/Vol] 106 mmol/L 98 - 10 7 mmol/L [place] CO2 [Moles/Vol] 18 mmol/L Low 20 - 31 mmol/L [place] Creatinine [Mass/Vol] 0.93 mg/dL High 0.5 - 0.9 mg/dL [place] GFR >60 >60 mL/min [place] GFR Non- 58 mL/min Low >60 [place] Glucose [Mass/Vol] 125 mg/dL High 70 - 99 mg/dL [place] Interpretation and review of laboratory results Abnormal [place] Potassium [Moles/Vol] 4.0 mmol/L 3.7 - 5.3 mmol/L [place] Sodium [Moles/Vol] 137 mmol/L 135 - 144 mmol/L [place] Urea nitrogen [Mass/Vol] 17 mg/dL 8 - 23 mg/dL [place] Brain Natriuretic Peptideon 04-17-2020 Interpretation and review of laboratory results Abnormal [place] Natriuretic peptide B (Bld) [Mass/Vol] Pro-BNP Reference Range: [place], [place] Comment on above: Rule Out: <300 Baird Zone: Age <50 300-450 Age 50-75 300-900 Age >75 300-1800 Usually represents mild to moderate HF but other cardiopulmonary causes cannot be ruled out. Rule In: Age <50 >450 Age 50-75 >900 Age >75 >1800 Natriuretic peptide B (Bld) [Mass/Vol] 1209 pg/mL High <300 [place] Comment on above: Pro-BNP results david ot be compared to BNP results. CBC Auto Differentialon Basophils (Bld) [#/Vol] 0.06 10*3/uL [place] Basophils/100 WBC (Bld) 1 % 0 - 2 % M [place] Differential Type NOT REPORTED [place] Eosinophils (Bld) [#/Vol] 0.10 10*3/uL [place] Eosinophils/100 WBC (Bld) 1 % 1 - 4 % [place] Erythrocyte distribution width (RBC) [Ratio] 15.9 % High 11.8 - 14.4 % [place] Hematocrit (Bld) [Volume fraction] 38.2 % 36.3 - 47.1 % [place] Hemoglobin (Bld) [Mass/Vol] 12.2 g/dL 11.9 - 15.1 g/dL [place] Immature granulocytes (Bld) [#/Vol] 10*3/uL [place] Immature granulocytes (Bld) [#/Vol] 0 % 0 [place] Interpretation and review of laboratory results Abnormal [place] Lymphocytes (Bld) [#/Vol] 1.73 10*3/uL [place] Lymphocytes/100 WBC (Bld) 23 % Low 24 - 43 % [place] MCH (RBC) [Entitic mass] 27.8 pg 25.2 - 33.5 pg [place] MCHC (RBC) [Mass/Vol] 31.9 g/dL 28.4 - 34.8 g/dL [place] MCV (RBC) [Entitic vol] 87.0 fL 82.6 - 102.9 fL [place] Monocytes (Bld) [#/Vol] 0.55 10*3/uL [place] Monocytes/100 WBC (Bld) 7 % 3 - 12 % [place] Platelet mean volume (Bld) [Entitic vol] 10.0 fL 8.1 - 13.5 fL [place] Platelets (Bld) [#/Vol] 315 10*3/uL [place] Platelets (Bld) [#/Vol] NOT REPORTED [place] RBC (Bld) [#/Vol] 4.39 10*6/uL 3.95 - 5.11 m/uL [place] RBC morphology finding Nom (Bld) NOT REPORTED [place] Segmented neutrophils/100 WBC (Bld) 68 % High 36 - 65 % [place] Segs Absolute 5.24 [facility] [place] WBC (Bld) [#/Vol] 7.7 10*3/uL [place] WBC (Bld) [#/Vol] 0.0 10*3/uL 0.0 per 100 WBC [place] WBC Morphology NOT REPORTED [place], [place] CHEST PULMONARY EMBOLISM W CONTRASTon 04-17-2020 1. No pulmonary embolism. No acute abnormality in the chest. 2. Ill-defined 6 mm right upper lobe ground-glass nodule. A follow-up chest CT in 6-12 months is recommended, as outlined below. 3. Severe coronary artery disease. RECOMMENDATIONS: 6.0 mm ground glass pulmonary nodule within the upper lobe. Recommend a non-contrast Chest CT at 6-12 months to evaluate for persistence, then additional non-contrast Chest CTs every 2 years until 5 years. These guidelines do not apply to immunocompromised patients and patients with cancer. Follow up in patients with significant comorbidities as clinically warranted. For lung cancer screening, adhere to Lung-RADS guidelines. Reference: Radiology. 2017; 284(1):228-43. [place] EXAMINATION: CTA OF THE CHEST 04/17/2020 2:25 pm TECHNIQUE: CTA of the chest was performed after the administration of intravenous contrast. Multiplanar reformatted images are provided for review. MIP images are provided for review. Dose modulation, iterative reconstruction, and/or weight based adjustment of the mA/kV was utilized to reduce the radiation dose to as low as reasonably achievable. COMPARISON: 05/04/2018 HISTORY: ORDERING SYSTEM PROVIDED HISTORY: cp sob TECHNOLOGIST PROVIDED HISTORY: sob Acute chest pain and shortness of breath. Initial examination. FINDINGS: Pulmonary Arteries: Pulmonary arteries are adequately opacified for evaluation. No evidence of intraluminal filling defect to suggest pulmonary embolism. Main pulmonary artery is normal in caliber. Mediastinum: The heart is enlarged. There is no pericardial effusion. Severe coronary artery calcifications are present. The thoracic aorta is atherosclerotic, but nonaneurysmal. No mediastinal or hilar lymphadenopathy is demonstrated. Lungs/pleura: No focal infiltrate, pleural effusion or pneumothorax is demonstrated. There is atelectasis in the base of the left lower lobe. Minimal emphysema is present. There is an ill-defined 6 mm ground-glass right upper lobe nodule, axial image 41. Upper Abdomen: There is a 4.9 cm left renal cyst. Soft Tissues/Bones: A left subclavian transvenous cardiac device is present. No suspicious osteolytic or osteoblastic lesions are seen. [facility]- [place], [place], Mhpn Incoming Radiant Results From Vericept/Kirax - 04/17/2020 3:53 PM EDT EXAMINATION: CTA OF THE CHEST 04/17/2020 2:25 pm TECHNIQUE: CTA of the chest was performed after the administration of intravenous contrast. Multiplanar reformatted images are provided for review. MIP images are provided for review. Dose modulation, iterative reconstruction, and/or weight based adjustment of the mA/kV was utilized to reduce the radiation dose to as low as reasonably achievable. COMPARISON: 05/04/2018 HISTORY: ORDERING SYSTEM PROVIDED HISTORY: donaldo heart TECHNOLOGIST PROVIDED HISTORY: Donaldo heart Acute chest pain and shortness of breath. Initial examination. FINDINGS: Pulmonary Arteries: Pulmonary arteries are adequately opacified for evaluation. No evidence of intraluminal filling defect to suggest pulmonary embolism. Main pulmonary artery is normal in caliber. Mediastinum: The heart is enlarged. There is no pericardial effusion. Severe coronary artery calcifications are present. The thoracic aorta is atherosclerotic, but nonaneurysmal. No mediastinal or hilar lymphadenopathy is demonstrated. Lungs/pleura: No focal infiltrate, pleural effusion or pneumothorax is demonstrated. There is atelectasis in the base of the left lower lobe. Minimal emphysema is present. There is an ill-defined 6 mm ground-glass right upper lobe nodule, axial image 41. Upper Abdomen: There is a 4.9 cm left renal cyst. Soft Tissues/Bones: A left subclavian transvenous cardiac device is present. No suspicious osteolytic or osteoblastic lesions are seen. IMPRESSION: 1. No pulmonary embolism. No acute abnormality in the chest. 2. Ill-defined 6 mm right upper lobe ground-glass nodule. A follow-up chest CT in 6-12 months is recommended, as outlined below. 3. Severe coronary artery disease. RECOMMENDATIONS: 6.0 mm ground glass pulmonary nodule within the upper lobe. Recommend a non-contrast Chest CT at 6-12 months to evaluate for persistence, then additional non-contrast Chest CTs every 2 years until 5 years. These guidelines do not apply to immunocompromised patients and patients with cancer. Follow up in patients with significant comorbidities as clinically warranted. For lung cancer screening, adhere to Lung-RADS guidelines. Reference: Radiology. 2017; 284(1):228-43. [place] Metabolic Panelon 04-17-2020 GFR/1.73 sq M predicted among non-blacks MDRD (S/P/Bld) [Vol rate/Area] [place], [place] Comment on above: Average GFR for 70 o r more years old: 75 mL/min/1.73sq m Chronic Kidney Disease: <60 mL/min/1.73sq m Kidney failure: <15 mL/min/1.73sq m eGFR calculated using average adult body mass. Additional eGFR calculator available at: http://www.Inaika/multiple_crcl_2012.htm Stage 1: Some kidney damage normal GFR Stage 2: Mild kidney damage GFR 60-89 Stage 3: Moderate kidney damage GFR 30-59 Stage 4: Severe kidney damage GFR 15-29 Stage 5: Severe kidney damage GFR <15 ESRD - chronic treatment by dialysis or transplant Protime-INRon 04-17-2020 INR Coag (PPP) [Relative time] 2.0 {INR} [place] Comment on above: Non-therapeutic Range: INR = 0.9-1.2 Therapeutic Range: Moderate Anticoagulant Intensity: INR = 2.0-3.0 High Anticoagulant Intensity: INR = 2.5-3.5 Interpretation and review of laboratory results Abnormal [place] PT Coag (PPP) [Time] 22.6 s High [place] Troponinon 04-17-2020 Troponin I.cardiac [Mass/Vol] NOT REPORTED [place] Troponin T.cardiac [Mass/Vol] NOT REPORTED <0.03 ng/mL [place] Troponin, High Sensitivity 12 ng/L 0 - 14 ng/L [place] Comment on above: High Sensitivity Troponin values cannot be compared with other Troponin methodologies. Patients with high levels of Biotin oral intake (i.e >5mg/day) may have falsely decreased Troponin levels. Samples collected within 8 hours of biotin intake may require additional information for diagnosis. Troponin I.cardiac [Mass/Vol] NOT REPORTED [place] Troponin T.cardiac [Mass/Vol] NOT REPORTED <0.03 ng/mL [place] Troponin, High Sensitivity 14 ng/L 0 - 14 ng/L [place] Comment on above: High Sensitivity Troponin values cannot be compared with other Troponin methodologies. Patients with high levels of Biotin oral intake (i.e >5mg/day) may have falsely decreased Troponin levels. Samples collected within 8 hours of biotin intake may require additional information for diagnosis. XR CHEST PORTABLEon 04-17-20 EXAMINATION: ONE XRA Y VIEW OF THE CHEST 04/17/2020 12:17 pm COMPARISON: 11/29/2018. HISTORY: ORDERING SYSTEM PROVIDED HISTORY: sob TECHNOLOGIST PROVIDED HISTORY: sob FINDINGS: The cardiac silhouette is mildly enlarged and stable. Aortic vascular calcification. The lungs are clear. No infiltrate, pleural fluid or evidence of overt failure. Left-sided transvenous pacer. [place] No acute cardiopulmonary disease. Stable mild cardiomegaly without overt failure. [place], [place] Incoming Radiant Results From Vericept/Kirax - 04/17/2020 12:26 PM EDT EXAMINATION: ONE XRAY VIEW OF THE CHEST 04/17/2020 12:17 pm COMPARISON: 11/29/2018. HISTORY: ORDERING SYSTEM PROVIDED HISTORY: sob TECHNOLOGIST PROVIDED HISTORY: sob FINDINGS: The cardiac silhouette is mildly enlarged and stable. Aortic vascular calcification. The lungs are clear. No infiltrate, pleural fluid or evidence of overt failure. Left-sided transvenous pacer. IMPRESSION: No acute cardiopulmonary disease. Stable mild cardiomegaly without overt failure. [place] BASIC METABOLIC PANELon 08-2 Calcium [Mass/Vol] 8.4 mg/dL Low 8.6-10.3 [facility]: Order Comment: fax t o [phone] ([facility] EP lab) Performed By: #### 0 [id number] #### [facility] [address] [place] [address], [facility] Chloride [Moles/Vol] 111 mmol/L High 98-107 [facility] Comment on above: Order Comment: fax t o [phone] ([facility] EP lab) Performed By: #### 0 [id number] #### [facility] [address] [place] [address], [place] CO2 [Moles/Vol] 24 mmol/L Normal 21-31 [facility] Comment on above: Order Comment: fax t o [phone] ([facility] EP lab) Performed By: #### 0 [id number] #### [facility] [address] [place] [address], [place] Creatinine [Mass/Vol] 1.00 mg/dL Normal 0.60-1.20 [facility] Comment on above: Order Comment: fax t o [phone] ([facility] EP lab) Performed By: #### 0 [id number] #### [facility] [address] [place] [address], [place] GFR/1.73 sq M predicted among blacks MDRD (S/P/Bld) [Vol rate/Area] mL/min/{1.73_m2} Normal >60 [facility] Comment on above: Order Comment: fax t o [phone] ([facility] EP lab) Result Comment: Calc ulation may not be valid for patients over 70 years Performed By: #### 0 [id number] #### [facility] [address] [place] [address], [place] GFR/1.73 sq M predicted among non-blacks MDRD (S/P/Bld) [Vol rate/Area] 53 ml/min/1.73sq m Abnormal >60 The [facility] Comment on above: Order Comment: fax t o [phone] ([facility] EP lab) Result Comment: Calc ulation may not be valid for patients over 70 years Performed By: #### 0 [id number] #### [facility] [address] [place] [address], [place] Glucose [Mass/Vol] 88 mg/dL Normal 70-100 The [facility] Comment on above: Order Comment: fax t o [phone] ([facility] EP lab) Performed By: #### 0 [id number] #### [facility] [address] [place] [address], [facility] Potassium [Moles/Vol] 3.8 mmol/L Normal 3.5-5.1 [facility] Comment on above: Order Comment: fax t o [phone] ([facility] EP lab) Performed By: #### 0 0071 #### [facility] [address] [place] [address], [place] Sodium [Moles/Vol] 140 mmol/L Normal 136-145 The [facility] Comment on above: Order Comment: fax t o [phone] ([facility] EP lab) Performed By: #### 0 0071 #### [facility] [address] [place] [address], [facility] Urea nitrogen [Mass/Vol] 18 mg/dL Normal 7-25 [facility] Comment on above: Order Comment: fax t o [phone] ([facility] EP lab) Performed By: #### 0 0071 #### [facility] [address] [place] [address], [facility] CBC COMPLETE BLOOD COUNTon 0 04-13-2020 Erythrocyte distribution width (RBC) [Ratio] 16.8 % High 11.5-15.0 [facility] Comment on above: Order Comment: fax t o [phone] ([facility] EP lab) Performed By: #### 0 [id number] #### [facility] [address] [place] [address], [facility] Hematocrit (Bld) [Volume fraction] 36.9 % Normal 36.0-45.0 [facility] Comment on above: Order Comment: fax t o [phone] ([facility] EP lab) Performed By: #### 0 [id number] #### [facility] [address] Hemoglobin (Bld) [Mass/Vol] 11.6 g/dL Low 12.0-15.0 [facility] Comment on above: Order Comment: fax t o [phone] ([facility] EP lab) Performed By: #### 0 [id number] #### [facility] [address] MCH (RBC) [Entitic mass] 27.1 pg Normal 27.0-33.0 [facility] Comment on above: Order Comment: fax t o [phone] ([facility] EP lab) Performed By: #### 0 [id number] #### [facility] [address] MCHC (RBC) [Mass/Vol] 31.4 g/dL Low 32.0-35.0 [facility] Comment on above: Order Comment: fax t o [phone] ([facility] EP lab) Performed By: #### 0 [id number] #### [facility] [address] MCV (RBC) [Entitic vol] 86.2 fL Normal 82.0-98.0 [facility] Comment on above: Order Comment: fax t o [phone] ([facility] EP lab) Performed By: #### 0 [id number] #### [facility] [address] Nucleated RBC/100 WBC (Bld) [Ratio] 0 % Normal 0-0 [facility] Comment on above: Order Comment: fax t o [phone] ([facility] EP lab) Performed By: #### 0 [id number] #### [facility] [address] [place] [address], [facility] PLAT CNT 321 10*3/uL Normal 150-400 The [facility] Comment on above: Order Comment: fax t o [phone] ([facility] EP lab) Performed By: #### 0 [id number] #### [facility] [address] [place] [address], [facility] RBC (Bld) [#/Vol] 4.28 10*6/uL Normal 3.80-5.00 The [facility] Comment on above: Order Comment: fax t o [phone] ([facility] EP lab) Performed By: #### 0 [id number] #### [facility] [address] [place] [address], [facility] WBC (Bld) [#/Vol] 7.68 10*3/uL Normal 4.00-10.60 The [facility] Comment on above: Order Comment: fax t o [phone] ([facility] EP lab) Performed By: #### 0 [id number] #### [facility] [address] [facility] MAGNESIUM BLOODon 04-13-2020 Magnesium [Mass/Vol] 2.1 mg/dL Normal 1.9-2.7 [facility] Comment on above: Order Comment: fax t o [phone] ([facility] EP lab) Performed By: #### 0 [id number] #### [facility] [address] [facility] [address] PROTHROMBIN TIMEon 0 INR Coag (PPP) [Relative time] 2.19 {INR} High 0.91-1.16 [facility] Comment on above: Order Comment: fax t o [phone] ([facility] EP lab) Result Comment: ACCC P RECOMMENDED INR FOR WARFARIN THERAPY ------- CONDITION INR PROPHYLAXIS OF VENOUS THROMBOSIS 2-3 (HIGH-RISK SURGERY) TREATMENT OF VENOUS THROMBOSIS 2-3 TREATMENT OF PULMONARY EMBOLISM 2-3 PREVENTION OF SYSTEMIC EMBOLISM: 2-3 ACUTE MYOCARDIAL INFARCTION TISSUE HEART VALVES VALVULAR HEART DISEASE ATRIAL FIBRILLATION RECURRENT SYSTEMIC EMBOLISM MECHANICAL HEART VALVE 2.5-3.5 FROM: ORAL ANTICOAGULANTS. MECHANISM OF ACTION, CLINICAL EFFECTIVENESS, AND OPTIMAL THERAPEUTIC RANGE. CHEST 1995;108:231S-246S. Performed By: #### 0 0071 #### [facility] [address] [place] [address], [facility] PT Coag (PPP) [Time] 24.7 s High 12.3-14.8 [facility] Comment on above: Order Comment: fax t o [phone] ([facility] EP lab) Result Comment: ALL RESULTS MUST BE INTERPRETED WITH RESPECT TO BLOOD DRAWING ARTIFACT OR DILUTION ERROR OF ANTICOAGULANT AT THE TIME OF SAMPLING. Performed By: #### 0 [id number] #### [facility] [address] [place] [address], [facility] TROPONIN-Ion 04-13-2020 Troponin I.cardiac [Mass/Vol] 0.00 ng/mL Normal 0.00-0.04 [facility] Comment on above: Result Comment: REFE RENCE RANGES: 0.00 - 0.14 ng/ml NEGATIVE 0.15 - 0.25 ng/ml INDETERMINATE > 0.25 ng/ml INDICATIVE OF AN M.I. Performed By: #### 0 0071 #### [facility] [address] [facility] [place] [address], [facility] Troponin I.cardiac [Mass/Vol] 0.00 ng/mL Normal 0.00-0.04 [facility] Comment on above: Order Comment: fax t o [phone] ([facility] EP lab) Result Comment: REFE RENCE RANGES: 0.00 - 0.14 ng/ml NEGATIVE 0.15 - 0.25 ng/ml INDETERMINATE > 0.25 ng/ml INDICATIVE OF AN M.I. Performed By: #### 0 0071 #### [facility] [address] [facility] *SARS-CoV-2 COVID-19on 04-12 [id number] Not Detected Normal Not Detected [facility] Comment on above: Order Comment: The A ptima SARS-CoV-2 assay is a nucleic acid amplification test intended for the qualitative detection of RNA from SARS-CoV-2 isolated and purified from nasopharyngeal (SIMULATION DEVELOPER),oropharyngeal (OP), nasal swab, sputum, and bronchoalveolar lavage (BAL) specimens from patients with signs and symptoms of infection who are suspected of COVID-19. Results are for the identification of SARS-CoV-2 RNA. The SARS-CoV-2 RNA is generally detectable during the acute phase of infection. The Aptima SARS-CoV-2 Assay on the CrossTx and CrossTx Fusion system is intended for use by laboratory personnel specifically instructed and trained in the operation of the [place] and CrossTx Fusion system. The Aptima SARS-CoV-2 assay is only for use under the Food and Drug Administration Emergency Use Authorization. Testing is limited to laboratories certified under the Clinical Laboratory Improvement Amendments of 1988 (CLIA), 42 U.S.C. ???263a, to perform high complexity tests. Not Detected: Not detected does not preclude SARS-CoV-2 infection and should not be used as the sole basis for patient management decisions. Not detected results must be combined with clinical observations, patient history, and epidemiological information. Performed By: #### 3 [id number] #### [facility] [address] [facility] APTTon 04-12-2020 aPTT Coag (Bld) [Time] 32.3 s Normal 25.0-35.0 [facility] Comment on above: Result Comment: ALL RESULTS MUST BE INTERPRETED WITH RESPECT TO BLOOD DRAWING ARTIFACT OR DILUTION ERROR OF ANTICOAGULANT AT THE TIME OF SAMPLING. THE APTT SHOULD NOT BE USED TO MONITOR UNFRACTIONATED HEPARIN THERAPY, THIS LABORATORY NO LONGER HAS AN ESTABLISHED THERAPEUTIC RANGE BASED ON THE APTT. IT IS RECOMMENDED THAT THE UFH - HEPARIN ASSAY (ANTI-XA ACTIVITY) BE USED FOR THIS PURPOSE. Performed By: #### 0 [id number] #### [facility] [address] BNP (B-TYPE NATRIURETIC PEPT SOUMYA)on 04-12-2020 Natriuretic peptide B (Bld) [Mass/Vol] 181 pg/mL High 0-100 [facility] Comment on above: Order Comment: fax t o [phone] ([facility] EP lab) Result Comment: Give n the appropriate clinical setting a BNP result of >100 pg/mL indicates congestive heart failure. Performed By: #### 0 0071 #### [facility] [address] [place] [address], [facility] CBC W/DIFFon 04-12-2020 ABS BASOPHILS 0.1 10*3/uL Normal 0.0-0.2 [facility] Comment on above: Performed By: #### 5 0103 #### [facility] [address] ABS IMM GRANS 0.1 10*3/uL Normal 0.0-0.2 [facility] Comment on above: Performed By: #### 5 0103 #### [facility] [address] [place] [address], [facility] ABS NEUTROPHILS 6.6 10*3/uL Normal 1.6-7.6 The [facility] Comment on above: Performed By: #### 5 0103 #### [facility] [address] Basophils/100 WBC (Bld) 0.7 % Normal 0.0-1.0 [facility] Comment on above: Performed By: #### 5 0103 #### [facility] [address] [place] [address], [facility] Eosinophils (Bld) [#/Vol] 0.1 10*3/uL Normal 0.0-0.5 [facility] Comment on above: Performed By: #### 5 0103 #### [facility] [address] [place] [address], [facility] Eosinophils/100 WBC (Bld) 0.9 % Normal 0.0-6.0 [facility] Comment on above: Performed By: #### 5 0103 #### [facility] [address] [place] [address], [facility] Erythrocyte distribution width (RBC) [Ratio] 16.8 % High 11.5-15.0 [facility] Comment on above: Performed By: #### 5 0103 #### [facility] [address] [place] [address], [facility] Hematocrit (Bld) [Volume fraction] 37.9 % Normal 36.0-45.0 [facility] Comment on above: Performed By: #### 102 #### [facility] [address] [facility] Hemoglobin (Bld) [Mass/Vol] 12.2 g/dL Normal 12.0-15.0 [facility] Comment on above: Performed By: #### 5 3 #### [facility] [address] [place] [address], [facility] IMMATURE GRANS 0.5 % Normal 0.0-1.0 [facility] Comment on above: Performed By: #### 5 3 #### [facility] [address] [place] [address], [facility] Lymphocytes (Bld) [#/Vol] 2.3 10*3/uL Normal 1.2-4.0 [facility] Comment on above: Performed By: #### 5 0103 #### [facility] [address] [place] [address], [facility] Lymphocytes/100 WBC (Bld) 23.8 % Normal 20.0-45.0 [facility] Comment on above: Performed By: #### 5 3 #### [facility] [address] MCH (RBC) [Entitic mass] 27.7 pg Normal 27.0-33.0 [facility] Comment on above: Performed By: #### 5 0103 #### [facility] [address] [facility] MCHC (RBC) [Mass/Vol] 32.2 g/dL Normal 32.0-35.0 [facility] Comment on above: Performed By: #### 5 0103 #### [facility] [address] [place] [address], [facility] MCV (RBC) [Entitic vol] 85.9 fL Normal 82.0-98.0 [facility] Comment on above: Performed By: #### 5 0103 #### [facility] [address] Monocytes (Bld) [#/Vol] 0.7 10*3/uL Normal 0.1-1.0 [facility] Comment on above: Performed By: #### 5 0103 #### [facility] [address] MONOS 7.5 % Normal 5.0-12.0 [facility] Comment on above: Performed By: #### 5 0103 #### [facility] [address] Neutrophils/100 WBC (Bld) 66.6 % Normal 40.0-72.0 [facility] Comment on above: Performed By: #### 5 0103 #### [facility] [address] [place] [address], [facility] Nucleated RBC/100 WBC (Bld) [Ratio] 0 % Normal 0-0 [facility] Comment on above: Performed By: #### 5 0103 #### [facility] [address] [place] [address], [facility] PLAT CNT 365 10*3/uL Normal 150-400 The [facility] Comment on above: Performed By: #### 5 0103 #### [facility] [address] [place] [address], [facility] RBC (Bld) [#/Vol] 4.41 10*6/uL Normal 3.80-5.00 [facility] Comment on above: Performed By: #### 5 0103 #### [facility] [address] [place] [address], [facility] WBC (Bld) [#/Vol] 9.84 10*3/uL Normal 4.00-10.60 The [facility] Comment on above: Performed By: #### 5 0103 #### [facility] [address] [facility]. [address] COMP METABOLIC PANELon 04-12 Albumin [Mass/Vol] 3.4 g/dL Low 3.5-5.7 [facility] Comment on above: Performed By: #### 0 0121, [id number] #### [facility] [address] [place] [address], [facility] ALKALINE PHOSPH 75 IU/L Normal 34-104 [facility] Comment on above: Performed By: #### 0 0121, [id number] #### [facility] [address] [place] [address], [facility] ALT [Catalytic activity/Vol] 11 U/L Normal 7-52 [facility] Comment on above: Performed By: #### 0 0121, [id number] #### [facility] [address] [place] [address], [facility] AST [Catalytic activity/Vol] 16 U/L Normal 13-39 [facility] Comment on above: Performed By: #### 0 0121, [id number] #### [facility] [address] [place] [address], [place] Bilirubin [Mass/Vol] 0.5 mg/dL Normal 0.3-1.0 [facility] Comment on above: Performed By: #### 0 0121, [id number] #### [facility] [address] [place] [address], [place] Calcium [Mass/Vol] 9.1 mg/dL Normal 8.6-10.3 [facility] Comment on above: Performed By: #### 0 0121, [id number] #### [facility] [address] [place] [address], [place] Chloride [Moles/Vol] 107 mmol/L Normal 98-107 [facility] Comment on above: Performed By: #### 0 0121, [id number] #### [facility] [address] [place] [address], [place] CO2 [Moles/Vol] 24 mmol/L Normal 21-31 The [facility] Comment on above: Performed By: #### 0 0121, [id number] #### [facility] [address] [place] [address], [place] Creatinine [Mass/Vol] 0.91 mg/dL Normal 0.60-1.20 [facility] Comment on above: Performed By: #### 0 0121, [id number] #### [facility] [address] [place] [address], [place] GFR/1.73 sq M predicted among blacks MDRD (S/P/Bld) [Vol rate/Area] mL/min/{1.73_m2} Normal >60 [facility] Comment on above: Result Comment: Calc ulation may not be valid for patients over 70 years Performed By: #### 0 0121, [id number] #### [facility] [address] [place] [address], [place] GFR/1.73 sq M predicted among non-blacks MDRD (S/P/Bld) [Vol rate/Area] 59 ml/min/1.73sq m Abnormal >60 The [facility] Comment on above: Result Comment: Calc ulation may not be valid for patients over 70 years Performed By: #### 0 0121, [id number] #### [facility] [address] [place] [address], [place] Glucose [Mass/Vol] 83 mg/dL Normal 70-100 The [facility] Comment on above: Performed By: #### 0 0121, [id number] #### [facility] [address] [facility] [place] [address], [place] Potassium [Moles/Vol] 3.8 mmol/L Normal 3.5-5.1 [facility] Comment on above: Performed By: #### 0 0121, [id number] #### [facility] [address] [place] [address], [place] Protein [Mass/Vol] 6.0 g/dL Normal 6.0-8.3 The [facility] Comment on above: Performed By: #### 0 0121, [id number] #### [facility] [address] [facility] [place] [address], [place] Sodium [Moles/Vol] 137 mmol/L Normal 136-145 The [facility] Comment on above: Performed By: #### 0 0121, [id number] #### [facility] [address] [facility] [place] [address], [place] Urea nitrogen [Mass/Vol] 17 mg/dL Normal 7-25 [facility] Comment on above: Performed By: #### 0 0121, [id number] #### [facility] [address] [place] [address], [place] PORTABLE CHEST 1 VIEWon 03-18 PORTABLE CHEST 1 VIEW [facility] Department of Radiology [address] [place] [id number] ===== Patient Name: LEYLA LAMBERT : 1940 Sex: F Age: Race: White Pt. Location: [facility] Patient Status: E Ordered Date: 04/12/2020 12:15:00 PM Completed Date: 04/12/2020 01:07 PM Requesting Provider: CELESTE PFEIFFER Attending Provider: CELESTE PFEIFFER Report Copy To: Signs & Symptoms: Chest Pain History: Comments: Evaluate for Cardiomegaly Exam: PORTABLE CHEST 1 VIEW ===== PORTABLE CHEST 1 VIEW 04/12/2020 1:07 PM CLINICAL INDICATIONS: Chest Pain TECHNOLOGIST COMMENTS: chest pain and pressure pacemaker 4 wks ago QUESTION FOR THE RADIOLOGIST: Evaluate for Cardiomegaly PROTOCOL: AP(PA) view was obtained. COMPARISON: May 25, 2018 FINDINGS: Upper mediastinum unremarkable. Hilar regions normal. Heart mildly enlarged but unchanged. Pacemaker present unchanged. No pneumonia or pleural effusion. Bony thorax unchanged IMPRESSION: Mild cardiomegaly no acute cardiopulmonary abnormality or interval change Electronically signed: Rojas Hughes. Transcribed by: [email or web address], User Resident: Electronically Signed by: ROJAS HUGHES @ 04/12/2020 01:17 PM Normal [facility] Comment on above: Order Comment: Evalu ate for Cardiomegaly PROTHROMBIN TIMEon 0 INR Coag (PPP) [Relative time] 2.07 {INR} High 0.91-1.16 [facility] Comment on above: Result Comment: ACC P RECOMMENDED INR FOR WARFARIN THERAPY ------- CONDITION INR PROPHYLAXIS OF VENOUS THROMBOSIS 2-3 (HIGH-RISK SURGERY) TREATMENT OF VENOUS THROMBOSIS 2-3 TREATMENT OF PULMONARY EMBOLISM 2-3 PREVENTION OF SYSTEMIC EMBOLISM: 2-3 ACUTE MYOCARDIAL INFARCTION TISSUE HEART VALVES VALVULAR HEART DISEASE ATRIAL FIBRILLATION RECURRENT SYSTEMIC EMBOLISM MECHANICAL HEART VALVE 2.5-3.5 FROM: ORAL ANTICOAGULANTS. MECHANISM OF ACTION, CLINICAL EFFECTIVENESS, AND OPTIMAL THERAPEUTIC RANGE. CHEST 1995;108:231S-246S. Performed By: #### 0 0071 #### [facility] [address] PT Coag (PPP) [Time] 23.6 s High 12.3-14.8 [facility] Comment on above: Result Comment: ALL RESULTS MUST BE INTERPRETED WITH RESPECT TO BLOOD DRAWING ARTIFACT OR DILUTION ERROR OF ANTICOAGULANT AT THE TIME OF SAMPLING. Performed By: #### 0 0071 #### [facility] [address] TROPONIN-Ion 04-12-2020 Troponin I.cardiac [Mass/Vol] 0.01 ng/mL Normal 0.00-0.04 [facility] Comment on above: Order Comment: fax t o [phone] ([facility] EP lab) Result Comment: REFE RENCE RANGES: 0.00 - 0.04 ng/ml NORMAL 0.05 - 0.50 ng/ml INDETERMINATE > 0.50 ng/ml CONSISTENT WITH AN M.I. Performed By: #### 0 0071 #### [facility] [address] [place] [address], [facility] Troponin I.cardiac [Mass/Vol] 0.00 ng/mL Normal 0.00-0.04 [facility] [place] [facility] Comment on above: Result Comment: REFE RENCE RANGES: 0.00 - 0.14 ng/ml NEGATIVE 0.15 - 0.25 ng/ml INDETERMINATE > 0.25 ng/ml INDICATIVE OF AN M.I. Performed By: #### 0 0121, [id number] #### [facility] [address] Basic Metabolic Panel (BMP)o n 04-06-2020 Anion gap [Moles/Vol] 8 mmol/L Low 9 - 17 mmol/L [place] Bun/Cre Ratio 25 High [place] Calcium [Mass/Vol] 8.5 mg/dL Low 8.6 - 10. 4 mg/dL [place] Chloride [Moles/Vol] 109 mmol/L High 98 - 10 7 mmol/L [place] CO2 [Moles/Vol] 21 mmol/L 20 - 31 mmol/L [place] Creatinine [Mass/Vol] 0.93 mg/dL High 0.5 - 0.9 mg/dL [place] GFR >60 >60 mL/min [place] GFR Non- 58 mL/min Low >60 [place] Glucose [Mass/Vol] 96 mg/dL 70 - 99 mg/dL [place] Interpretation and review of laboratory results Abnormal [place] Potassium [Moles/Vol] 3.7 mmol/L 3.7 - 5.3 mmol/L [place] Sodium [Moles/Vol] 138 mmol/L 135 - 144 mmol/L [place] Urea nitrogen [Mass/Vol] 23 mg/dL 8 - 23 mg/dL [place] CBC auto differentialon 03-18 Basophils (Bld) [#/Vol] 0.05 10*3/uL [place] Basophils/100 WBC (Bld) 1 % 0 - 2 % M [place] Differential Type NOT REPORTED [place] Eosinophils (Bld) [#/Vol] 0.14 10*3/uL [place] Eosinophils/100 WBC (Bld) 2 % 1 - 4 % [place] Erythrocyte distribution width (RBC) [Ratio] 16.9 % High 11.8 - 14.4 % [place] Hematocrit (Bld) [Volume fraction] 37.4 % 36.3 - 47.1 % [place] Hemoglobin (Bld) [Mass/Vol] 11.6 g/dL Low 11.9 - 15.1 g/dL [place] Immature granulocytes (Bld) [#/Vol] 1 % High 0 [place] Immature granulocytes (Bld) [#/Vol] 0.10 10*3/uL [place] Interpretation and review of laboratory results Abnormal [place] Lymphocytes (Bld) [#/Vol] 2.40 10*3/uL [place] Lymphocytes/100 WBC (Bld) 31 % 24 - 43 % [place] MCH (RBC) [Entitic mass] 27.6 pg 25.2 - 33.5 pg [place] MCHC (RBC) [Mass/Vol] 31.0 g/dL 28.4 - 34.8 g/dL [place] MCV (RBC) [Entitic vol] 89.0 fL 82.6 - 102.9 fL [place] Monocytes (Bld) [#/Vol] 0.71 10*3/uL [place] Monocytes/100 WBC (Bld) 9 % 3 - 12 % [place] Platelet mean volume (Bld) [Entitic vol] 9.6 fL 8.1 - 13.5 fL [place] Platelets (Bld) [#/Vol] NOT REPORTED [place] Platelets (Bld) [#/Vol] 345 10*3/uL [place] RBC (Bld) [#/Vol] 4.20 10*6/uL 3.95 - 5.11 m/uL [place] RBC morphology finding Nom (Bld) NOT REPORTED [place] Segmented neutrophils/100 WBC (Bld) 56 % 36 - 65 % [place] Segs Absolute 4.43 [place] WBC (Bld) [#/Vol] 7.8 10*3/uL [place] WBC (Bld) [#/Vol] 0.0 10*3/uL 0.0 per 100 WBC [place] WBC Morphology NOT REPORTED [place], [place] Magnesiumon 04-06-2020 Magnesium [Mass/Vol] 2.3 mg/dL 1.6 - 2 .6 mg/dL [place] Metabolic Panelon 04-06-2020 GFR/1.73 sq M predicted among non-blacks MDRD (S/P/Bld) [Vol rate/Area] [place] Comment on above: Stage 1: Some kidney damage normal GFR Stage 2: Mild kidney damage GFR 60-89 Stage 3: Moderate kidney damage GFR 30-59 Stage 4: Severe kidney damage GFR 15-29 Stage 5: Severe kidney damage GFR <15 ESRD - chronic treatment by dialysis or transplant Average GFR for 70 o r more years old: 75 mL/min/1.73sq m Chronic Kidney Disease: <60 mL/min/1.73sq m Kidney failure: <15 mL/min/1.73sq m eGFR calculated using average adult body mass. Additional eGFR calculator available at: http://www.Inaika/multiple_crcl_2012.htm Protime-INRon 04-06-2020 INR Coag (PPP) [Relative time] 2.0 {INR} [place] Comment on above: Non-therapeutic Range: INR = 0.9-1.2 Therapeutic Range: Moderate Anticoagulant Intensity: INR = 2.0-3.0 High Anticoagulant Intensity: INR = 2.5-3.5 Interpretation and review of laboratory results Abnormal [place] PT Coag (PPP) [Time] 22.1 s High [place] Comment on above: NOTE: NEW REFERENCE RANGE Basic Metabolic Panel (BMP)o n 04-05-2020 Anion gap [Moles/Vol] 8 mmol/L Low 9 - 17 mmol/L [place] Bun/Cre Ratio 23 High [place] Calcium [Mass/Vol] 8.9 mg/dL 8.6 - 10. 4 mg/dL [place] Chloride [Moles/Vol] 111 mmol/L High 98 - 10 7 mmol/L [place] CO2 [Moles/Vol] 22 mmol/L 20 - 31 mmol/L [place] Creatinine [Mass/Vol] 0.87 mg/dL 0.5 - 0.9 mg/dL [place] GFR >60 >60 mL/min [place] GFR Non- >60 >60 mL/min [place] Glucose [Mass/Vol] 96 mg/dL 70 - 99 mg/dL [place] Interpretation and review of laboratory results Abnormal [place] Potassium [Moles/Vol] 4.1 mmol/L 3.7 - 5.3 mmol/L [place] Sodium [Moles/Vol] 141 mmol/L 135 - 144 mmol/L [place] Urea nitrogen [Mass/Vol] 20 mg/dL 8 - 23 mg/dL [place] CBC auto differentialon 03-18 Basophils (Bld) [#/Vol] 0.04 10*3/uL [place] Basophils/100 WBC (Bld) 1 % 0 - 2 % [place] Differential Type NOT REPORTED [place] Eosinophils (Bld) [#/Vol] 0.12 10*3/uL [place] Eosinophils/100 WBC (Bld) 2 % 1 - 4 % [place] Erythrocyte distribution width (RBC) [Ratio] 16.6 % High 11.8 - 14.4 % [place] Hematocrit (Bld) [Volume fraction] 36.9 % 36.3 - 47.1 % [place] Hemoglobin (Bld) [Mass/Vol] 11.7 g/dL Low 11.9 - 15.1 g/dL [place] Immature granulocytes (Bld) [#/Vol] 0.09 10*3/uL [place] Immature granulocytes (Bld) [#/Vol] 1 % High 0 [place] Interpretation and review of laboratory results Abnormal [place] Lymphocytes (Bld) [#/Vol] 2.37 10*3/uL [place] Lymphocytes/100 WBC (Bld) 29 % 24 - 43 % [place] MCH (RBC) [Entitic mass] 27.7 pg 25.2 - 33.5 pg [place] MCHC (RBC) [Mass/Vol] 31.7 g/dL 28.4 - 34.8 g/dL [place] MCV (RBC) [Entitic vol] 87.4 fL 82.6 - 102.9 fL [place] Monocytes (Bld) [#/Vol] 0.77 10*3/uL [place] Monocytes/100 WBC (Bld) 9 % 3 - 12 % [place] Platelet mean volume (Bld) [Entitic vol] 9.9 fL 8.1 - 13.5 fL [place] Platelets (Bld) [#/Vol] 324 10*3/uL [place] Platelets (Bld) [#/Vol] NOT REPORTED [place] RBC (Bld) [#/Vol] 4.22 10*6/uL 3.95 - 5.11 m/uL [place] RBC morphology finding Nom (Bld) NOT REPORTED [place] Segmented neutrophils/100 WBC (Bld) 58 % 36 - 65 % [place] Segs Absolute 4.80 [place] WBC (Bld) [#/Vol] 8.2 10*3/uL [place] WBC (Bld) [#/Vol] 0.0 10*3/uL 0.0 per 100 WBC [place] WBC Morphology NOT REPORTED [place] EKG 12 Leadon 04-05-2020 Atrial Rate 93 BPM [place] P [place] -11 degrees [place] P-R Interval 240 ms [place] Q-T Interval 398 ms [place] QRS Duration 82 ms [place] QTc Calculation (Bazett) 494 ms [facility] [place] 28 degrees [facility] [place] T [place] -11 degrees [facility] [place] Ventricular Rate 93 BPM [facility] [place] Atrial-paced rhythm with prolonged AV conduction Nonspecific T wave abnormality Prolonged QT Abnormal ECG When compared with ECG of 04-APR-2020 23:36, (unconfirmed) No significant change was found Confirmed by TONI MOORE ([id number]) on 04/05/2020 10:08:08 PM [facility] [place] May[place], Mhpn Incoming E kg Results From [facility] [place] - 04/05/2020 10:08 PM EDT Atrial-paced rhythm with prolonged AV conduction Nonspecific T wave abnormality Prolonged QT Abnormal ECG When compared with ECG of 04-APR-2020 23:36, (unconfirmed) No significant change was found Confirmed by TONI MOORE ([id number]) on 04/05/2020 10:08:08 PM [facility] [place] Atrial Rate 89 BPM [facility] [place] -7 degrees [facility] [place] P-[place] Interval 258 ms [facility] [place] Q-[place] Interval 402 ms [facility] [place] QRS Duration 86 ms [facility] [place] QTc Calculation (Bazett) 489 ms [facility] [place] 4 degrees [facility] [place] -10 degrees [facility] [place] Ventricular Rate 89 BPM [facility] [place] Incoming E kg Results From [facility] [place] - 04/05/2020 9:50 PM EDT Atrial-paced rhythm with prolonged AV conduction Nonspecific T wave abnormality Prolonged QT Abnormal ECG When compared with ECG of 04-APR-2020 11:58, (unconfirmed) No significant change was found Confirmed by TONI MOORE ([id number]) on 04/05/2020 9:49:57 PM [facility] [place] Atrial-paced rhythm with prolonged AV conduction Nonspecific T wave abnormality Prolonged QT Abnormal ECG When compared with ECG of 04-APR-2020 11:58, (unconfirmed) No significant change was found Confirmed by TONI MOORE ([id number]) on 04/05/2020 9:49:57 PM [facility] [place] At[place] 92 BPM [facility] [place] -17 degrees [facility] [place] P-[place] Interval 256 ms [facility] [place] Q-[place] Interval 402 ms [facility] [place] Q[place] Duration 76 ms [facility] [place] QTc Calculation (Bazett) 497 ms [facility] [place] 12 degrees [facility] [place] 0 degrees [facility] [place] Ventricular Rate 92 BPM [facility] [place] Atrial-paced rhythm with prolonged AV conduction Prolonged QT Abnormal ECG When compared with ECG of 03-APR-2020 22:51, (unconfirmed) No significant change was found Confirmed by TONI MOORE ([id number]) on 04/05/2020 9:48:08 PM [facility] [place] Incoming E kg Results From [facility] [place] - 04/05/2020 9:48 PM EDT Atrial-paced rhythm with prolonged AV conduction Prolonged QT Abnormal ECG When compared with ECG of 03-APR-2020 22:51, (unconfirmed) No significant change was found Confirmed by TONI MOORE ([id number]) on 04/05/2020 9:48:08 PM [facility] [place] At[place] Rate 92 BPM [facility] [place] 54 degrees [facility] [place] P-[place] Interval 262 ms [facility] [place] Q-T Interval 378 ms [facility] [place] QRS Duration 84 ms [facility] [place] QTc Calculation (Bazett) 467 ms [facility] [place] 16 degrees [facility] [place] 16 degrees [facility] [place] Ventricular Rate 92 BPM [facility] [place] Atrial-paced rhythm with prolonged AV conduction Abnormal ECG When compared with ECG of 03-APR-2020 12:21, (unconfirmed) No significant change was found Confirmed by TONI MOOER ([id number]) on 04/05/2020 9:43:48 PM [facility] [place] Incoming E kg Results From [facility] [place] - 04/05/2020 9:44 PM EDT Atrial-paced rhythm with prolonged AV conduction Abnormal ECG When compared with ECG of 03-APR-2020 12:21, (unconfirmed) No significant change was found Confirmed by TONI MOORE ([id number]) on 04/05/2020 9:43:48 PM [facility] [place] Magnesiumon 04-05-2020 Magnesium [Mass/Vol] 2.3 mg/dL 1.6 - 2 .6 mg/dL [place] Metabolic Panelon 04-05-2020 GFR/1.73 sq M predicted among non-blacks MDRD (S/P/Bld) [Vol rate/Area] [place], [place] Comment on above: Stage 1: Some kidney damage normal GFR Stage 2: Mild kidney damage GFR 60-89 Stage 3: Moderate kidney damage GFR 30-59 Stage 4: Severe kidney damage GFR 15-29 Stage 5: Severe kidney damage GFR <15 ESRD - chronic treatment by dialysis or transplant Average GFR for 70 o r more years old: 75 mL/min/1.73sq m Chronic Kidney Disease: <60 mL/min/1.73sq m Kidney failure: <15 mL/min/1.73sq m eGFR calculated using average adult body mass. Additional eGFR calculator available at: http://www.Inaika/RatingBug_crcl_2011.htm Protime-INRon 04-05-2020 INR Coag (PPP) [Relative time] 2.1 {INR} [place] Comment on above: Non-therapeutic Range: INR = 0.9-1.2 Therapeutic Range: Moderate Anticoagulant Intensity: INR = 2.0-3.0 High Anticoagulant Intensity: INR = 2.5-3.5 Interpretation and review of laboratory results Abnormal [place], [place] PT Coag (PPP) [Time] 23.4 s High [place], [place] Comment on above: NOTE: NEW REFERENCE RANGE Troponinon 04-05-2020 Troponin I.cardiac [Mass/Vol] NOT REPORTED [place] Troponin T.cardiac [Mass/Vol] NOT REPORTED <0.03 ng/mL [place] Troponin, High Sensitivity 12 ng/L 0 - 14 ng/L [place] Comment on above: High Sensitivity Troponin values cannot be compared with other Troponin methodologies. Patients with high levels of Biotin oral intake (i.e >5mg/day) may have falsely decreased Troponin levels. Samples collected within 8 hours of biotin intake may require additional information for diagnosis. Basic Metabolic Panel (BMP)o n 04-04-2020 Anion gap [Moles/Vol] 6 mmol/L Low 9 - 17 mmol/L [place] Bun/Cre Ratio 19 [place] Calcium [Mass/Vol] 8.9 mg/dL 8.6 - 10. 4 mg/dL [place] Chloride [Moles/Vol] 107 mmol/L 98 - 10 7 mmol/L [place] CO2 [Moles/Vol] 22 mmol/L 20 - 31 mmol/L [place] Creatinine [Mass/Vol] 0.75 mg/dL 0.5 - 0.9 mg/dL [place] GFR >60 >60 mL/min [place] GFR Non- >60 >60 mL/min [place] Glucose [Mass/Vol] 93 mg/dL 70 - 99 mg/dL [place] Interpretation and review of laboratory results Abnormal [place] Potassium [Moles/Vol] 4.0 mmol/L 3.7 - 5.3 mmol/L [place] Sodium [Moles/Vol] 135 mmol/L 135 - 144 mmol/L [place] Urea nitrogen [Mass/Vol] 14 mg/dL 8 - 23 mg/dL [place] CBC auto differentialon 03-17 Basophils (Bld) [#/Vol] 0.03 10*3/uL [place] Basophils/100 WBC (Bld) 0 % 0 - 2 % M [place] Differential Type NOT REPORTED [place] Eosinophils (Bld) [#/Vol] 0.14 10*3/uL [place] Eosinophils/100 WBC (Bld) 2 % 1 - 4 % [place] Erythrocyte distribution width (RBC) [Ratio] 16.4 % High 11.8 - 14.4 % [place] Hematocrit (Bld) [Volume fraction] 38.9 % 36.3 - 47.1 % [place] Hemoglobin (Bld) [Mass/Vol] 12.0 g/dL 11.9 - 15.1 g/dL [place] Immature granulocytes (Bld) [#/Vol] 1 % High 0 [place] Immature granulocytes (Bld) [#/Vol] 0.09 10*3/uL [place] Interpretation and review of laboratory results Abnormal [place] Lymphocytes (Bld) [#/Vol] 2.15 10*3/uL [place] Lymphocytes/100 WBC (Bld) 26 % 24 - 43 % [place] MCH (RBC) [Entitic mass] 27.6 pg 25.2 - 33.5 pg [place] MCHC (RBC) [Mass/Vol] 30.8 g/dL 28.4 - 34.8 g/dL [place] MCV (RBC) [Entitic vol] 89.4 fL 82.6 - 102.9 fL [place] Monocytes (Bld) [#/Vol] 0.85 10*3/uL [place] Monocytes/100 WBC (Bld) 10 % 3 - 12 % [place] Platelet mean volume (Bld) [Entitic vol] 9.8 fL 8.1 - 13.5 fL [place] Platelets (Bld) [#/Vol] NOT REPORTED [place] Platelets (Bld) [#/Vol] 342 10*3/uL [place] RBC (Bld) [#/Vol] 4.35 10*6/uL 3.95 - 5.11 m/uL [place] RBC morphology finding Nom (Bld) NOT REPORTED [place] Segmented neutrophils/100 WBC (Bld) 61 % 36 - 65 % [place] Segs Absolute 5.00 [place] WBC (Bld) [#/Vol] 8.3 10*3/uL [place] WBC (Bld) [#/Vol] 0.0 10*3/uL 0.0 per 100 WBC [place] WBC Morphology NOT REPORTED [place], [place] Metabolic Panelon 04-04-2020 GFR/1.73 sq M predicted among non-blacks MDRD (S/P/Bld) [Vol rate/Area] [place], [place] Comment on above: Stage 1: Some kidney damage normal GFR Stage 2: Mild kidney damage GFR 60-89 Stage 3: Moderate kidney damage GFR 30-59 Stage 4: Severe kidney damage GFR 15-29 Stage 5: Severe kidney damage GFR <15 ESRD - chronic treatment by dialysis or transplant Average GFR for 70 o r more years old: 75 mL/min/1.73sq m Chronic Kidney Disease: <60 mL/min/1.73sq m Kidney failure: <15 mL/min/1.73sq m eGFR calculated using average adult body mass. Additional eGFR calculator available at: http://www.Inaika/multiple_crcl_2012.htm Protime-INRon 04-04-2020 INR Coag (PPP) [Relative time] 1.8 {INR} [place] Comment on above: Non-therapeutic Range: INR = 0.9-1.2 Therapeutic Range: Moderate Anticoagulant Intensity: INR = 2.0-3.0 High Anticoagulant Intensity: INR = 2.5-3.5 Interpretation and review of laboratory results Abnormal [place] PT Coag (PPP) [Time] 20.6 s High [place], [place] Comment on above: NOTE: NEW REFERENCE RANGE Basic Metabolic Panel (BMP)o n 04-03-2020 Anion gap [Moles/Vol] 11 mmol/L 9 - 17 mmol/L [place] Bun/Cre Ratio 23 [place] Calcium [Mass/Vol] 8.6 mg/dL 8.6 - 10. 4 mg/dL [place] Chloride [Moles/Vol] 106 mmol/L 98 - 10 7 mmol/L [place] CO2 [Moles/Vol] 19 mmol/L Low 20 - 31 mmol/L [place] Creatinine [Mass/Vol] 0.88 mg/dL 0.5 - 0.9 mg/dL [place] GFR >60 >60 mL/min [place] GFR Non- >60 >60 mL/min [place] Glucose [Mass/Vol] 120 mg/dL High 70 - 99 mg/dL [place] Interpretation and review of laboratory results Abnormal [place] Potassium [Moles/Vol] 3.5 mmol/L Low 3.7 - 5.3 mmol/L [place] Sodium [Moles/Vol] 136 mmol/L 135 - 144 mmol/L [place] Urea nitrogen [Mass/Vol] 20 mg/dL 8 - 23 mg/dL [place] CBC auto differentialon 03-17 Basophils (Bld) [#/Vol] 0.03 10*3/uL [place] Basophils/100 WBC (Bld) 0 % 0 - 2 % [place] Differential Type NOT REPORTED [place] Eosinophils (Bld) [#/Vol] 0.09 10*3/uL [place] Eosinophils/100 WBC (Bld) 1 % 1 - 4 % [place] Erythrocyte distribution width (RBC) [Ratio] 16.7 % High 11.8 - 14.4 % [place] Hematocrit (Bld) [Volume fraction] 36.8 % 36.3 - 47.1 % [place] Hemoglobin (Bld) [Mass/Vol] 11.3 g/dL Low 11.9 - 15.1 g/dL [place] Immature granulocytes (Bld) [#/Vol] 1 % High 0 [place] Immature granulocytes (Bld) [#/Vol] 0.13 10*3/uL [place] Interpretation and review of laboratory results Abnormal [place] Lymphocytes (Bld) [#/Vol] 1.86 10*3/uL [place] Lymphocytes/100 WBC (Bld) 21 % Low 24 - 43 % [place] MCH (RBC) [Entitic mass] 27.4 pg 25.2 - 33.5 pg [place] MCHC (RBC) [Mass/Vol] 30.7 g/dL 28.4 - 34.8 g/dL [place] MCV (RBC) [Entitic vol] 89.1 fL 82.6 - 102.9 fL [place] Monocytes (Bld) [#/Vol] 1.01 10*3/uL [place], [place] Monocytes/100 WBC (Bld) 11 % 3 - 12 % [place] Platelet mean volume (Bld) [Entitic vol] 10.0 fL 8.1 - 13.5 fL [place] Platelets (Bld) [#/Vol] NOT REPORTED [place] Platelets (Bld) [#/Vol] 301 10*3/uL [place] RBC (Bld) [#/Vol] 4.13 10*6/uL 3.95 - 5.11 m/uL [place] RBC morphology finding Nom (Bld) NOT REPORTED [place] Segmented neutrophils/100 WBC (Bld) 66 % High 36 - 65 % [place] Segs Absolute 5.90 [place], [place] WBC (Bld) [#/Vol] 0.0 10*3/uL 0.0 per 100 WBC [place] WBC (Bld) [#/Vol] 9.0 10*3/uL [place] WBC Morphology NOT REPORTED [facility] [place] [place] [facility] 12 Leadon 04-03-2020 Atrial Rate 89 BPM [facility], [place] 22 degrees [facility], [place] P-R Interval 234 ms [facility], [place] Q-T Interval 388 ms [place], [place] QRS Duration 82 ms [place] QTc Calculation (Bazett) 472 ms [place], [place] 5 degrees [facility], [place] T [place] 3 degrees [facility], [place] Ventricular Rate 89 BPM [facility], [place] Maycol, Mhpn Incoming E kg Results From [facility] [place] - 04/03/2020 10:51 PM EDT Atrial-paced rhythm with prolonged AV conduction Abnormal ECG When compared with ECG of 03-APR-2020 09:00, No significant change was found Confirmed by TONI MOORE ([id number]) on 04/03/2020 10:51:50 PM [place] Atrial-paced rhythm with prolonged AV conduction Abnormal ECG When compared with ECG of 03-APR-2020 09:00, No significant change was found Confirmed by TONI MOORE ([id number]) on 04/03/2020 10:51:50 PM [facility], [place] Atrial Rate 92 BPM [facility], [place] -13 degrees [facility], [place] P-R Interval 218 ms [facility], [place] Q-T Interval 360 ms [facility], [place] QRS Duration 88 ms [facility], [place] QTc Calculation (Bazett) 445 ms [facility], [place] 0 degrees [facility], [place] -28 degrees [facility], [place] Ventricular Rate 92 BPM [facility], [place] Atrial-paced rhythm with prolonged AV conduction Abnormal ECG When compared with ECG of 29-NOV-2018 14:17, Electronic atrial pacemaker has replaced Electronic ventricular pacemaker Confirmed by TONI MOORE ([id number]) on 04/03/2020 11:14:51 AM [place], [place] Incoming E kg Results From [facility] [place] - 04/03/2020 11:15 AM EDT Atrial-paced rhythm with prolonged AV conduction Abnormal ECG When compared with ECG of 29-NOV-2018 14:17, Electronic atrial pacemaker has replaced Electronic ventricular pacemaker Confirmed by TONI MOORE ([id number]) on 04/03/2020 11:14:51 AM [place] Metabolic Panelon 04-03-2020 GFR/1.73 sq M predicted among non-blacks MDRD (S/P/Bld) [Vol rate/Area] [place] Comment on above: Stage 1: Some kidney damage normal GFR Stage 2: Mild kidney damage GFR 60-89 Stage 3: Moderate kidney damage GFR 30-59 Stage 4: Severe kidney damage GFR 15-29 Stage 5: Severe kidney damage GFR <15 ESRD - chronic treatment by dialysis or transplant Average GFR for 70 o r more years old: 75 mL/min/1.73sq m Chronic Kidney Disease: <60 mL/min/1.73sq m Kidney failure: <15 mL/min/1.73sq m eGFR calculated using average adult body mass. Additional eGFR calculator available at: http://www.[employer].JumpTime/multiple_crcl_2011.htm Protime-INRon 04-03-2020 INR Coag (PPP) [Relative time] 1.6 {INR} [facility] Comment on above: Non-therapeutic Range: INR = 0.9-1.2 Therapeutic Range: Moderate Anticoagulant Intensity: INR = 2.0-3.0 High Anticoagulant Intensity: INR = 2.5-3.5 Interpretation and review of laboratory results Abnormal [facility] (PPP) [Time] 18.7 s High [facility] Comment on above: NOTE: NEW REFERENCE RANGE XR KNEE GENERAL 4V AP BOTH/P A BOTH/LAT/MERC LTon 03-29-2020 [facility] Cardiovascular Lab Reporton 03-15-2020 Cardiovascular Lab Report [facility] MR #: [id number] Department of Physician: Noah Garcia M.D. Medicine Service Date: 03/15/2020 Division of Birthdate: 1940 Cardiology Room #: [facility] Cardiovascular Services [place] [address] Cardiovascular Laboratory Report PROCEDURE: Permanent pacemaker replacement. INDICATIONS FOR PACEMAKER REPLACEMENT: The patient is an 79-year-old woman who suffers from severe recurrent neurocardiogenic syncope as well as orthostatic hypotension. She has a permanent pacemaker in place, which is a standard model. She has failed every medical therapy and continues to have repeated severe falls resulting in traumatic injury. Because no other therapeutic modality has been helpful, we will change her device today to a pacer that can measure and respond to changes in blood pressure. DESCRIPTION OF PROCEDURE: After written informed consent was obtained, she was brought to the pacemaker laboratory in the fasting state. The left chest area over the site of the previous pulse generator was prepped and draped in the usual manner and 1% Xylocaine solution infiltrated for local anesthesia. Following initial sharp incision, meticulous blunt dissection was employed to open the subfascial pocket wherein the prior device lie. It was removed and connected to a [employer] dual-chamber pacing system. Because the size and shape of this device were different than the removed 1, a modification and revision of the pocket had to be performed. This was accomplished by doing this superior and lateral subfascial dissection. Into the newly revised pocket, we placed the new device. Via off field telemetry adequate sensing and pacing levels were determined. The right atrial lead had a pacing threshold of 0.7 V at 0.4 milliseconds pulse width. The P-wave amplitude of 4.7 mV and impedance of 370 ohms. The right ventricular lead had a pacing threshold of 0.8 V at 0.4 milliseconds pulse width and R-wave amplitude of 8.4 mV and impedance of 409 ohms. The pocket was irrigated with antibiotic solution. The fascia layer closed with continuous 2-0 Vicryl suture. The subdermal area with interrupted 3-0 Biosyn sutures placed utilizing a buried knot technique and the skin surface was closed with Dermabond glue. The wound was dressed with a Telfa pad and Tegaderm dressing. Sponge and needle counts were correct at the end of the case and prior to the procedure, the patient had received 1 g of intravenous vancomycin as antibiotic prophylaxis. Conscious sedation was maintained throughout the case with intravenous midazolam and fentanyl. She was returned to the holding area in stable hemodynamic condition. FINAL IMPRESSIONS: 1. Replacement of dual-chamber pulse generator. 2. Revision of pacemaker pocket. 3. Conscious sedation. Electronically Signed by: Noah Garcia M.D. 03/17/2020 06:06 P Noah Garcia M.D. Date Dict: 03/15/2020/01:51 P/Noah Garcia M.D. Date Trans: 03/15/2020 02:59 P/kina [id number] cc: Epi Andrews M.D. [address] , [address] [facility] [id number] Normal [facility] *MRSA/MSSA DNA NASALon 03-12 *MRSA/MSSA DNA NASAL Clinical Report: (D ) Specimen: NASAL SWAB Collected: 03/12/2020 15:29 Status: Final Last Updated: 03/12/2020 21:00 (1) fax to [phone] ([facility] EP lab) MSSA DNA (Final) Negative MRSA DNA (Final) Negative Normal [facility] Comment on above: Order Comment: fax t o [phone] ([facility] EP lab) Performed By: #### [id number] #### [facility] [address] *SARS-CoV-2 COVID-19on 03-12 [id number] Not Detected Normal Not Detected [facility] Comment on above: Order Comment: The A ptima SARS-CoV-2 assay is a nucleic acid amplification test intended for the qualitative detection of RNA from SARS-CoV-2 isolated and purified from nasopharyngeal (SIMULATION DEVELOPER), nasal and oropharyngeal (OP) swab specimens from patients with signs and symptoms of infection who are suspected of COVID-19. Results are for the identification of SARS-CoV-2 RNA. The SARS-CoV-2 RNA is generally detectable in nasopharyngeal and oropharyngeal swabs during the acute phase of infection. The Aptima SARS-CoV-2 Assay on the CrossTx and CrossTx Fusion system is intended for use by laboratory personnel specifically instructed and trained in the operation of the [place] and CrossTx Fusion system. The Aptima SARS-CoV-2 assay is only for use under the Food and Drug Administration Emergency Use Authorization. Testing is limited to laboratories certified under the Clinical Laboratory Improvement Amendments of 1988 (CLIA), 42 U.S.C. ???263a, to perform high complexity tests. Not Detected: Not detected does not preclude SARS-CoV-2 infection and should not be used as the sole basis for patient management decisions. Not detected results must be combined with clinical observations, patient history, and epidemiological information. Performed By: #### [id number] #### [facility] [address] [facility] BASIC METABOLIC PANELon 02-15 Calcium [Mass/Vol] 8.8 mg/dL Normal 8.6-10.3 [facility] Comment on above: Order Comment: fax t o [phone] ([facility] EP lab) Performed By: #### 0 [id number] #### [facility] [address] Chloride [Moles/Vol] 106 mmol/L Normal 98-107 [facility] Comment on above: Order Comment: fax t o [phone] ([facility] EP lab) Performed By: #### 0 [id number] #### [facility] [address] [place] [address], [place] CO2 [Moles/Vol] 25 mmol/L Normal 21-31 [facility] Comment on above: Order Comment: fax t o [phone] ([facility] EP lab) Performed By: #### 0 [id number] #### [facility] [address] [place] [address], [place] Creatinine [Mass/Vol] 0.95 mg/dL Normal 0.60-1.20 [facility] Comment on above: Order Comment: fax t o [phone] ([facility] EP lab) Performed By: #### 0 [id number] #### [facility] [address] [place] [address], [place] GFR/1.73 sq M predicted among blacks MDRD (S/P/Bld) [Vol rate/Area] mL/min/{1.73_m2} Normal >60 [facility] Comment on above: Order Comment: fax t o [phone] ([facility] EP lab) Result Comment: Calc ulation may not be valid for patients over 70 years Performed By: #### [id number] #### [facility] [address] [place] [address], [place] GFR/1.73 sq M predicted among non-blacks MDRD (S/P/Bld) [Vol rate/Area] 56 ml/min/1.73sq m Abnormal >60 [facility] Comment on above: Order Comment: fax t o [phone] ([facility] EP lab) Result Comment: Calc ulation may not be valid for patients over 70 years Performed By: #### 0 [id number] #### [facility] [address] [place] [address], [place] Glucose [Mass/Vol] 87 mg/dL Normal 70-100 [facility] Comment on above: Order Comment: fax t o [phone] ([facility] EP lab) Performed By: #### 0 [id number] #### [facility] [address] [place] [address], [place] Potassium [Moles/Vol] 3.8 mmol/L Normal 3.5-5.1 [facility] Comment on above: Order Comment: fax t o [phone] ([facility] EP lab) Performed By: #### 0 [id number] #### [facility] [address] [place] [address], [place] Sodium [Moles/Vol] 137 mmol/L Normal 136-145 [facility] Comment on above: Order Comment: fax t o [phone] ([facility] EP lab) Performed By: #### 0 [id number] #### [facility] [address] [place] [address], [place] Urea nitrogen [Mass/Vol] 17 mg/dL Normal 7-25 [facility] Comment on above: Order Comment: fax t o [phone] ([facility] EP lab) Performed By: #### 0 [id number] #### [facility] [address] [place] [address], [facility] CBC COMPLETE BLOOD COUNTon 0 03-12-2020 Erythrocyte distribution width (RBC) [Ratio] 16.3 % High 11.5-15.0 [facility] Comment on above: Order Comment: fax t o [phone] ([facility] EP lab) Performed By: #### 5 [id number] #### [facility] [address] [place] [address], [place] Hematocrit (Bld) [Volume fraction] 36.0 % Normal 36.0-45.0 [facility] Comment on above: Order Comment: fax t o [phone] ([facility] EP lab) Performed By: #### 5 [id number] #### [facility] [address] [facility] [place] [address], [facility] Hemoglobin (Bld) [Mass/Vol] 11.4 g/dL Low 12.0-15.0 [facility] Comment on above: Order Comment: fax t o [phone] ([facility] EP lab) Performed By: #### 5 [id number] #### [facility] [address] [facility] [place] [address], [facility] [facility] MCH (RBC) [Entitic mass] 27.0 pg Normal 27.0-33.0 [facility] Comment on above: Order Comment: fax t o [phone] ([facility] EP lab) Performed By: #### 5 0608 #### [facility] [address] [place] [address], [facility] MCHC (RBC) [Mass/Vol] 31.7 g/dL Low 32.0-35.0 [facility] Comment on above: Order Comment: fax t o [phone] ([facility] EP lab) Performed By: #### 5 0608 #### [facility] [address] [place] [address], [facility] MCV (RBC) [Entitic vol] 85.3 fL Normal 82.0-98.0 T [facility] Comment on above: Order Comment: fax t o [phone] ([facility] EP lab) Performed By: #### 5 0608 #### [facility] [address] [place] [address], [facility] Nucleated RBC/100 WBC (Bld) [Ratio] 0 % Normal 0-0 [facility] Comment on above: Order Comment: fax t o [phone] ([facility] EP lab) Performed By: #### 5 0608 #### [facility] [address] [place] [address], [facility] PLAT CNT 335 10*3/uL Normal 150-400 The [facility] Comment on above: Order Comment: fax t o [phone] ([facility] EP lab) Performed By: #### 5 0608 #### [facility] [address] [place] [address], [facility] RBC (Bld) [#/Vol] 4.22 10*6/uL Normal 3.80-5.00 The [facility] Comment on above: Order Comment: fax t o [phone] ([facility] EP lab) Performed By: #### 5 0608 #### [facility] [address] [place] [address], [facility] WBC (Bld) [#/Vol] 7.06 10*3/uL Normal 4.00-10.60 The [facility] Comment on above: Order Comment: fax t o [phone] ([facility] EP lab) Performed By: #### 5 0608 #### [facility] [address] [place] [address], [facility] Protime-INRon 02-14-2020 INR Coag (PPP) [Relative time] 2.4 {INR} [facility], [place] Protime-INRon 01-25-2020 INR Coag (PPP) [Relative time] 3.6 {INR} [facility], [place] Protime-INRon 11-07-2019 INR Coag (PPP) [Relative time] 2.2 {INR} [facility], [place] Protime-INRon 07-13-2019 INR Coag (PPP) [Relative time] 1.9 {INR} [facility], [place] Protime-INRon 06-27-2019 INR Coag (PPP) [Relative time] 1.9 {INR} [facility], [place] Protime-INRon 05-30-2019 INR Coag (PPP) [Relative time] 2.2 {INR} [facility], [place] Protime-INRon 04-26-2019 INR Coag (PPP) [Relative time] 1.6 {INR} [facility], [place] Protime-INRon 04-05-2019 INR Coag (PPP) [Relative time] 1.7 {INR} [facility]- [place], [place] CBC with Diffon 03-12-2017 Abs. Basophil 0.00 k/uL Normal 0.0-0.2 [facility] Comment on above: Result Comment: Perf ormed at [facility] [address] [place] [address] Performed By: #### P T ####[place] [address] [id number] Abs.Neutrophil (Seg) 5.00 k/uL Normal 2.5-7.0 [facility] Comment on above: Performed By: #### P T ####[place] [address] [place] [address] Auto Diff Performed YES Normal [facility] Comment on above: Performed By: #### P T ####[place] [address] [id number] Basophils/100 WBC Auto (Bld) 0 % Normal [facility] Comment on above: Performed By: #### P T ####[place] [address] [place] [address] Eosinophils 0.00 10*3/uL Normal 0.0-0.4 [facility] Comment on above: Performed By: #### P T ####[place] [address] [phone] Eosinophils/100 leukocytes 0 % Normal [facility] Comment on above: Performed By: #### P T ####[place] [address] [place] [place] [address] Erythrocyte distribution width Auto Ratio (RBC) 17.8 % High 12.1-15.2 [facility] Comment on above: Performed By: #### P T ####[place] [address] [place] [address] Erythrocytes (RBC) 4.03 10*6/uL Normal 4.0-5.2 [facility] Comment on above: Performed By: #### P T ####[facility] [place] [address] Hematocrit (HCT) 31.4 % Low 36-46 [facility] Comment on above: Performed By: #### P T ####[facility] [place] [address] Hemoglobin mass conc (Bld) 10.1 g/dL Low 12.0-16.0 [facility] Comment on above: Performed By: #### P T ####[place] [address] [place] [address] Lymphocytes 0.90 10*3/uL Low 1.1-2.7 [facility] Comment on above: Performed By: #### P T ####[place] [address] [place] [address] Lymphocytes/100 leukocytes 15 % Normal [facility] Comment on above: Performed By: #### P T ####[place] [address] [place] [address] MCH 25.1 pg Low 26-34 [facility] Comment on above: Performed By: #### P T ####[place] [address] [place] [address] MCHC mass conc (RBC) 32.2 g/dL Normal 31-37 [facility] Comment on above: Performed By: #### P T ####[place] [address] [place] [address] MCV 77.9 fL Low 80-100 [facility] Comment on above: Performed By: #### P T ####[facility] [place] [address] Monocytes 0.20 10*3/uL Normal 0.0-1.0 [facility] Comment on above: Performed By: #### P T ####[facility] [place] [address] Monocytes/100 leukocytes 3 % Normal [facility] Comment on above: Performed By: #### P T ####[facility] [place] [address] Neutrophil (Seg) 82 % Normal [facility] Comment on above: Performed By: #### P T ####[facility] [place] [address] Platelets 310 10*3/uL Normal 140-450 [facility] Comment on above: Performed By: #### P T ####[facility] [place] [address] WBC (Leukocytes) 6.1 10*3/uL Normal 3.5-11.0 [facility] Comment on above: Performed By: #### P T ####[facility] [place] [address] Erythrocyte morphology NOT REPORTED Normal [facility] Comment on above: Performed By: #### P T ####[facility] [place] [address] Platelet mean volume (PMV) NOT REPORTED Normal 6.0-12.0 [facility] Comment on above: Performed By: #### P T ####[facility] [place] [address] Platelets NOT REPORTED Normal [facility] Comment on above: Performed By: #### P T ####[facility] [place] [address] WBC Morphology NOT REPORTED Normal [facility] Comment on above: Performed By: #### P T ####[facility] [place] [address] PTon 03-12-2017 INR Coag RelTime (PPP) 1.7 {INR} Normal [facility] Comment on above: Result Comment: * TH ERAPY INDICATIONS * REFERENCE RANGESPts not on anti-coagulants 1.0 - 1.5 INRLow risk pts on anti-coagulants 2.0 - 3.0 INRHigh risk pts on anti-coagulants 2.5 - 3.5 INRPrevention of atrial thrombo-embolism 3.0 - 4.5 INRPerformed at [facility] [address] [place] [address] ([phone]) Performed By: #### P T ####[facility] [place] [address] Prothrombin time (PT) Coag time (PPP) 17.3 s High 9.0-11.6 [facility] Comment on above: Performed By: #### P T ####[facility] [place] [address] XR CHEST STANDARD TWO VWon 0 03-12-2017 XR CHEST STANDARD TWO VW HISTORY: 76-year-old female, shortness of breath, pain five days. Prior breast carcinoma, bilateral mastectomy.TECHNIQUE: Two views chest.COMPARISON: 03/05/2017.FINDINGS: Mild cardiomegaly slightly increased in size. Small barely perceptible pleural effusions, left greater than right are new.No pulmonary edema. The pacemaker and leads are unchanged.IMPRESSION: Slight increase in size of the heart with new tiny pleural effusions compared to 03/05/2017.Interpreted by:BURKE Armstrong Jr.igned by:Jono Villa Jr., MD03/12/17Final result Normal [facility] CBCon 03-05-2017 Erythrocyte distribution width Auto Ratio (RBC) 18.4 % High 12.1-15.2 [facility] Comment on above: Performed By: #### C BC, CP ####[facility] [facility] [place] [address] Erythrocytes (RBC) 4.59 10*6/uL Normal 4.0-5.2 [facility] Comment on above: Performed By: #### C BC, CP ####[facility] [place] [address] Hematocrit (HCT) 35.9 % Low 36-46 [facility] Comment on above: Performed By: #### C BC, CP ####[facility] [place] [address] Hemoglobin mass conc (Bld) 11.4 g/dL Low 12.0-16.0 [facility] Comment on above: Performed By: #### C BC, CP ####[facility] [place] [address] MCH 24.9 pg Low 26-34 [facility] Comment on above: Performed By: #### C BC, CP ####[facility] [place] [address] MCHC mass conc (RBC) 31.9 g/dL Normal 31-37 [facility] Comment on above: Performed By: #### C BC, CP ####[place] [address] [place] [address] MCV 78.2 fL Low 80-100 [facility] Comment on above: Performed By: #### C BC, CP ####[facility] [place] [address] Platelets 232 10*3/uL Normal 140-450 [facility] Comment on above: Result Comment: Perf ormed at [facility] [address] [place] [address] Performed By: #### C BC, CP ####[facility] [place] [address] WBC (Leukocytes) 7.2 10*3/uL Normal 3.5-11.0 [facility] Comment on above: Performed By: #### C YULI, CP ####[facility] [place] [address] Platelet mean volume (PMV) NOT REPORTED Normal 6.0-12.0 [facility] Comment on above: Performed By: #### C YULI, CP ####[facility] [place] [address] Comp Metabolic Profon 2016 (cont.) Normal [facility] Comment on above: Result Comment: Aver age GFR for 70 or more years old: 75 mL/min/1.73sq mChronic Kidney Disease: <60 mL/min/1.73sq mKidney failure: <15 mL/min/1.73sq meGFR calculated using average adult body mass. Additional eGFR calculator available at:[email or web address]_[email or web address].htmPerformed at [facility] [address] [place] [address] Performed By: #### C YULI, CP ####[facility] [place] [address] Alanine aminotransferase (ALT) 28 U/L Normal 5-33 [facility] Comment on above: Performed By: #### C YULI, CP ####[facility] [place] [address] Albumin 3.8 g/dL Normal 3.5-5.2 [facility] Comment on above: Performed By: #### C YULI, CP ####[facility] [facility] [place] [address] Alkaline Phos 52 U/L Normal 35-104 [facility] Comment on above: Performed By: #### C YULI, CP ####[facility] [place] [address] Anion gap 12 mmol/L Normal 9-17 [facility] Comment on above: Performed By: #### C BC, CP ####[facility] [place] [address] Aspartate aminotransferase (AST) 36 U/L High <32 [facility] Comment on above: Performed By: #### C BC, CP ####[facility] [facility] [place] [address] Bilirubin Ql (U) 0.64 mg/dL Normal 0.3-1.2 [facility] Comment on above: Performed By: #### C BC, CP ####[place] [address] [place] [address] BUN/CRE Ratio 13 Normal 9-20 [facility] Comment on above: Performed By: #### C BC, CP ####[place] [address] [facility] [place] [address] Calcium 9.0 mg/dL Normal 8.6-10.4 [facility] Comment on above: Performed By: #### C BC, CP ####[place] [address] [place] [address] Chloride 102 mmol/L Normal 98-107 [facility] Comment on above: Performed By: #### C BC, CP ####[facility] [place] [address] CO2 25 mmol/L Normal 20-31 [facility] Comment on above: Performed By: #### C BC, CP ####[facility] [place] [address] Creatinine 0.98 mg/dL High 0.50-0.90 [facility] Comment on above: Performed By: #### C BC, CP ####[facility] [place] [address] eGFR (non-black) 55 mL/min/{1.73_m2} Low >60 [facility] Comment on above: Performed By: #### C BC, CP ####[facility] [place] [address] eGFR (non-black) mL/min/{1.73_m2} Normal >[address] [facility] Comment on above: Performed By: #### C BC, CP ####[facility] [place] [address] Glucose mass conc 102 mg/dL High 70-99 [facility] Comment on above: Performed By: #### C BC, CP ####[facility] [place] [address] Potassium molar conc 4.2 mmol/L Normal 3.7-5.3 [facility] Comment on above: Performed By: #### C BC, CP ####[facility] [place] [address] Protein 6.7 g/dL Normal 6.4-8.3 [facility] Comment on above: Performed By: #### C BC, CP ####[facility] [place] [address] Sodium 139 mmol/L Normal 135-144 [facility] Comment on above: Performed By: #### C BC, CP ####[facility] [place] [address] Urea nitrogen 13 mg/dL Normal 8-23 [facility] Comment on above: Performed By: #### C BC, CP ####[facility] [place] [address] Albumin/Globulin Ratio NOT REPORTED Normal 1.0-2.5 [facility] Comment on above: Performed By: #### C BC, CP ####[facility] [place] [address] Staging: NOT REPORTED Normal [facility] Comment on above: Performed By: #### C BC, CP ####[facility] [place] [address] XR CHEST STANDARD TWO VWon 0 03-05-2017 XR CHEST STANDARD TWO VW CLINICAL HISTORY: 76-year-old female for recheck.TECHNIQUE: Two views of chest.COMPARISON: Portable chest 03/04/2017 at 1112 hours.FINDINGS: Mild cardiomegaly with dual-chamber pacemaker unchanged. Lungs are clear. No pneumothorax. Moderate degenerative change of thoracic spine.IMPRESSION: No interval change.Interpreted by:BURKE Armstrong Jr.igned by:Jono Villa Jr., MD03/05/17Final result Normal [facility] CARDIAC CATHETERIZATIONon [facility]ARDIAC [facility]: [facility]ERT : [birth year][facility] REC NO: [id number] 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 This was done in surgical suite. UsedMarcaine for local analgesia and made a pocket using 1 dissection. This was a Ancef solution. With that in, I cannulated the subclavianvein twice without difficulty in placing the guidewire each time. Yasmin placed a 7-Ugandan sheath and placed a ventricular lead in theright ventricle. Good thresholds were obtained and there was a suturein place with 0 silk. We then placed atrial lead in the right atrialappendage and sutured with 0 silk. We irrigated the pocket again andattached the generator to the leads, generator was sutured down with 0silk and the skin was closed with 4-0 Vicryl and 2-0 Vicryl. Therewas no complication and left the OR in good condition.The generator is the [employer] Advisa DR MRI compatible, serial#[id number]. The atrial lead is a Medtronic 5076-45 cm, serial#[id number]. Ventricle lead is a Medtronic 5076-52 cm, serial#[id number]. Threshold in the right ventricle R wave is 9.4,impedance is 808 ohms, threshold is 0.4 and atrial P wave is 4.4, 746ohms, threshold is 0.7. 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 There is no complication. A lower rate set at 60 andupper rate of 130, hope that she will do well fdc.STEPHANIE GUNND:03/04/2017 11:23:31 [email or web address]#: [id number] Doc#: [id number]:Dr. Epi Polanco [facility] [place] LESS THAN 1 HOURon 2016 [place] LESS THAN 1 HOUR HISTORY: Pacemaker insertion in a 76-year-old female.COMPARISON: Chest x-ray, 07/18/2016.TECHNIQUE: Fluoroscopy with C-arm spot films. Four images. Fluoroscopy time, 4 minutes, 22 seconds.PHYSICIAN: Lv. FINDINGS: Dr. Gunn from cardiology used the C-arm during insertion of a dual chambered pacemaker. No radiologist was present.IMPRESSION: Fluoroscopy during dual-chamber pacemaker insertion by Dr. Gunn from cardiology.Interpreted by:BURKE Armstrong Jr.igned by:Jono Villa Jr., MD03/04/17Final result [facility] History and Physicalon 03-04 HIM IP Note OR Material Lister [facility] PTon 03-04-2017 INR Coag RelTime (PPP) 1.0 {INR} Normal [facility] Comment on above: Result Comment: * TH ERAPY INDICATIONS * REFERENCE RANGESPts not on anti-coagulants 1.0 - 1.5 INRLow risk pts on anti-coagulants 2.0 - 3.0 INRHigh risk pts on anti-coagulants 2.5 - 3.5 INRPrevention of atrial thrombo-embolism 3.0 - 4.5 INRPerformed at [facility] [address] [place] [address] ([phone] Performed By: #### P T ####[facility], [place] [id number] Prothrombin time (PT) Coag time (PPP) 9.9 s Normal 9.0-11.6 [facility] Comment on above: Performed By: #### P T ####[facility] [place] [address] XR CHEST PORTABLEon 03-04-20 XR CHEST PORTABLE CHEST X-RAY AP stefan ble upright 03/04/2017CLINICAL INDICATION: A new transvenous pacemakerCOMPARISON STUDY: 07/18/2016There is cardiomegaly. Patient has a transvenous pacemaker with 2 wires, access was via the left subclavian vein and one wire goes to the right atrium, the other to the floor of the right ventricle. There is no current evidence of pneumothorax. No mediastinal shift is evident. Lungs show no developing airspace process.IMPRESSION: No evidence of pneumothoraxInterpreted by:BURKE Shultzigned by:Milton Acuna MD03/04/17Final result Normal [facility] Large Joint Arthro/Inj: R kn ee joint [facility] Vital Signs Date Time Vital Sign Value Performing Clinician Facility 05-24-2025 13:35-0400 Body height 160.02 cm Douglas Will MD Work Phone: [facility] 05-24-2025 13:35-0400 Body mass index (BMI) [Ratio] 16.1 kg/m2 Douglas Will MD Work Phone: [facility] 05-24-2025 13:35-0400 Body temperature 96.6 [degF] Douglas Will MD Work Phone: [facility] 05-24-2025 13:35-0400 Body weight 41.27 kg Douglas Will MD Work Phone: [facility] 05-24-2025 13:35-0400 Diastolic blood pressure 58 mm[Hg] Douglas Will MD Work Phone: [facility] 05-24-2025 13:35-0400 Heart rate 75 /min Douglas Will MD Work Phone: [facility] 05-24-2025 13:35-0400 Respiratory rate 24 /min Douglas Will MD Work Phone: [facility] 05-24-2025 13:35-0400 SaO2% (BldA) [Mass fraction] 87 % Douglas Will MD Work Phone: [facility] 05-24-2025 13:35-0400 Systolic blood pressure 104 mm[Hg] Douglas Will MD Work Phone: [facility] 05-16-2025 12:30-0400 Diastolic blood pressure 73 mm[Hg] [facility] 05-16-2025 12:30-0400 Heart rate 64 /min [facility] 05-16-2025 12:30-0400 Systolic blood pressure 185 mm[Hg] [facility] 05-16-2025 10:00-0400 Body temperature 97 [degF] [facility] 05-16-2025 10:00-0400 Respiratory rate 18 /min [facility] 05-10-2025 13:30-0400 Body height 156.21 cm Douglas Will MD Work Phone: [facility] 05-10-2025 13:30-0400 Body mass index (BMI) [Ratio] 16.7 kg/m2 Douglas Will MD Work Phone: [facility] 05-10-2025 13:30-0400 Body weight 40.82 kg Douglas Will MD Work Phone: [facility] 05-09-2025 12:00-0400 Diastolic blood pressure 73 mm[Hg] [facility] 05-09-2025 12:00-0400 Heart rate 65 /min Mth[facility] Schedule [facility] [employer] 05-09-2025 12:00-0400 Systolic blood pressure 165 mm[Hg] [facility] 05-09-2025 09:55-0400 Body temperature 97.59 [degF] Mthz Schedule [facility] [employer] 05-09-2025 09:55-0400 Respiratory rate 18 /min Mth[facility] Schedule [facility] [employer] 05-03-2025 08:54-0400 Body height 162.6 cm Timothy Ingrid DO Work Phone: [facility] 05-03-2025 08:54-0400 Heart rate 90 /min Timothy Ingrid DO Work Phone: [facility] 05-03-2025 08:54-0400 SaO2% (BldA) [Mass fraction] 99 % Timothy Ingrid DO Work Phone: [facility] 04-26-2025 15:45-0400 Diastolic blood pressure 160 mm[Hg] Kendra Herrera MD Work Phone: [facility] 04-26-2025 15:45-0400 Heart rate 68 /min Kendra Herrera MD Work Phone: [facility] 04-26-2025 15:45-0400 Systolic blood pressure 221 mm[Hg] Kendra Herrera MD Work Phone: [facility] 04-26-2025 14:15-0400 SaO2% (BldA) [Mass fraction] 86 % Kendra Herrera MD Work Phone: [facility] 04-26-2025 10:17-0400 Body height 160 cm Kendra Herrera MD Work Phone: [facility] 04-26-2025 10:17-0400 Body mass index (BMI) [Ratio] 16.12 kg/m2 Kendra Herrera MD Work Phone: [facility] 04-26-2025 10:17-0400 Body weight 41.28 kg Kendra Herrera MD Work Phone: [facility] 04-26-2025 09:43-0400 Respiratory rate 14 /min Kendra Herrera MD Work Phone: [facility] 04-26-2025 07:15-0400 Body temperature 97.7 [degF] Kendra Herrera MD Work Phone: [facility] 04-06-2025 11:48-0400 Body height 160 cm Douglas Will MD Work Phone: [facility] 04-06-2025 11:48-0400 Body mass index (BMI) [Ratio] 16.3 kg/m2 Douglas Will MD Work Phone: [facility] 04-06-2025 11:48-0400 Body temperature 95.7 [degF] Douglas Will MD Work Phone: [facility] 04-06-2025 11:48-0400 Body weight 41.73 kg Douglas Will MD Work Phone: [facility] 04-06-2025 11:48-0400 Diastolic blood pressure 66 mm[Hg] Douglas Will MD Work Phone: [facility] 04-06-2025 11:48-0400 Heart rate 72 /min Douglas Will MD Work Phone: [facility] 04-06-2025 11:48-0400 Respiratory rate 24 /min Douglas Will MD Work Phone: [facility] 04-06-2025 11:48-0400 SaO2% (BldA) [Mass fraction] 93 % Douglas Will MD Work Phone: [facility] 04-06-2025 11:48-0400 Systolic blood pressure 124 mm[Hg] Douglas Will MD Work Phone: [facility] 03-24-2025 11:36-0400 Diastolic blood pressure 84 mm[Hg] Lar[facility] 03-24-2025 11:36-0400 Systolic blood pressure 187 mm[Hg] Larisa [facility]ardon [facility] 03-24-2025 10:13-0400 Heart rate 65 /min Larisa Reardon MD Work Phone: [employer] 03-24-2025 10:13-0400 Respiratory rate 18 /min Larisa [facility]ardon MD [facility] 03-24-2025 10:13-0400 SaO2% (BldA) [Mass fraction] 99 % Larisa Reardon MD Work Phone: [email or web address] [facility] 03-24-2025 07:00-0400 Body temperature 98.71 [degF] Larisa Reardon MD Work Phone: [employer] 03-24-2025 04:55-0400 Body mass index (BMI) [Ratio] 16.3 kg/m2 Larisa Reardon MD Work Phone: [facility] [employer] 03-24-2025 04:55-0400 Body weight 41.73 kg Larisa Reardon MD Work Phone: [employer] Comment on above: bed [facility]er[facility] 03-22-2025 12:53-0400 Body temperature 37 Larisa Reardon MD Work Phone: [employer] 03-22-2025 10:50-0400 Body height 160 cm Larisa Reardon MD Work Phone: [employer] 03-20-2025 15:43-0400 Diastolic blood pressure 102 mm[Hg] Ashish Carpio MD Work Phone: [employer] 03-20-2025 15:43-0400 Heart rate 74 /min Ashish Carpio MD Work Phone: [facility] [employer] 03-20-2025 15:43-0400 Respiratory rate 16 /min Ashish [facility]io MD [facility] 03-20-2025 15:43-0400 SaO2% (BldA) [Mass fraction] 97 % Ashish Carpio MD [facility] 03-20-2025 15:43-0400 Systolic blood pressure 115 mm[Hg] Ashish Carpio MD Work Phone: [facility] [employer] 03-20-2025 11:17-0400 Body height 160 cm Ashish [facility]io MD [facility] 03-20-2025 11:17-0400 Body mass index (BMI) [Ratio] 15.06 kg/m2 Ashish Carpio MD [facility] 03-20-2025 11:17-0400 Body temperature 97.81 [degF] Ashish Carpio MD Work Phone: [facility] [employer] 03-20-2025 11:17-0400 Body weight 38.56 kg Ashish Carpio MD Work Phone: [facility] [employer] 03-08-2025 10:30-0400 Body mass index (BMI) [Ratio] 14.7 kg/m2 Timothy Ingrid DO Work Phone: [facility] [employer] 03-08-2025 10:30-0400 Body weight 37.65 kg Timothy Ingrid DO Work Phone: [facility] [employer] 03-08-2025 10:30-0400 Diastolic blood pressure 72 mm[Hg] Timothy Ingrid DO Work Phone: [facility] 03-08-2025 10:30-0400 Heart rate 92 /min Timothy Ingrid DO Work Phone: [facility] [employer] 03-08-2025 10:30-0400 SaO2% (BldA) [Mass fraction] 99 % Timothy Ingrid DO Work Phone: [facility] 03-08-2025 10:30-0400 Systolic blood pressure 112 mm[Hg] Timothy Ingrid DO Work Phone: [facility] 02-20-2025 13:55-0400 Body height 160 cm Douglas Will MD Work Phone: [facility] 02-20-2025 13:55-0400 Body mass index (BMI) [Ratio] 15.77 kg/m2 Douglas Will MD Work Phone: [facility] 02-20-2025 13:55-0400 Body temperature 97.3 [degF] Douglas Will MD Work Phone: [facility] 02-20-2025 13:55-0400 Body weight 40.37 kg Douglas Will MD Work Phone: [facility] 02-20-2025 13:55-0400 Diastolic blood pressure 58 mm[Hg] Douglas Will MD Work Phone: [facility] 02-20-2025 13:55-0400 Heart rate 105 /min Douglas Will MD Work Phone: [facility] 02-20-2025 13:55-0400 Respiratory rate 22 /min Douglas Will MD Work Phone: [facility] 02-20-2025 13:55-0400 SaO2% (BldA) [Mass fraction] 98 % Douglas Will MD Work Phone: [facility] 02-20-2025 13:55-0400 Systolic blood pressure 130 mm[Hg] Douglas Will MD Work Phone: [facility] 01-12-2025 14:08-0400 Body height 160 cm Douglas Will MD Work Phone: [facility] 01-12-2025 14:08-0400 Body mass index (BMI) [Ratio] 16.83 kg/m2 Douglas Will MD Work Phone: [facility] 01-12-2025 14:08-0400 Body temperature 97.5 [degF] Douglas Will MD Work Phone: [facility] 01-12-2025 14:08-0400 Body weight 43.09 kg Douglas Will MD Work Phone: [facility] 01-12-2025 14:08-0400 Diastolic blood pressure 68 mm[Hg] Douglas Will MD Work Phone: [facility] 01-12-2025 14:08-0400 Heart rate 82 /min Douglas Will MD Work Phone: [facility] 01-12-2025 14:08-0400 Respiratory rate 24 /min Douglas Will MD Work Phone: [facility] 01-12-2025 14:08-0400 SaO2% (BldA) [Mass fraction] 97 % Douglas Will MD Work Phone: [facility] 01-12-2025 14:08-0400 Systolic blood pressure 170 mm[Hg] Douglas Will MD Work Phone: [facility] 12-23-2024 11:57-0400 Body height 160 cm Douglas Will MD Work Phone: [facility] 12-23-2024 11:57-0400 Body mass index (BMI) [Ratio] 17.01 kg/m2 Douglas Will MD Work Phone: [facility] 12-23-2024 11:57-0400 Body temperature 97.11 [degF] Douglas Will MD Work Phone: [facility] 12-23-2024 11:57-0400 Body weight 43.55 kg Douglas Will MD Work Phone: [facility] 12-23-2024 11:57-0400 Diastolic blood pressure 48 mm[Hg] Douglas Will MD Work Phone: [facility] 12-23-2024 11:57-0400 Heart rate 61 /min Douglas Will MD Work Phone: [facility] 12-23-2024 11:57-0400 Respiratory rate 26 /min Douglas Will MD Work Phone: [facility] 12-23-2024 11:57-0400 SaO2% (BldA) [Mass fraction] 96 % Douglas Will MD Work Phone: [facility] 12-23-2024 11:57-0400 Systolic blood pressure 130 mm[Hg] Douglas Will MD Work Phone: [facility] 12-13-2024 14:14-0400 Body height 160 cm Douglas Will MD Work Phone: [facility] 12-13-2024 14:14-0400 Body mass index (BMI) [Ratio] 16.65 kg/m2 Douglas Will MD Work Phone: [facility] 12-13-2024 14:14-0400 Body temperature 96.4 [degF] Douglas Will MD Work Phone: [facility] 12-13-2024 14:14-0400 Body weight 42.64 kg Douglas Will MD Work Phone: [facility] 12-13-2024 14:14-0400 Diastolic blood pressure 72 mm[Hg] Douglas Will MD Work Phone: [facility] 12-13-2024 14:14-0400 Heart rate 83 /min Douglas Will MD Work Phone: [facility] 12-13-2024 14:14-0400 Respiratory rate 36 /min Douglas Will MD Work Phone: [facility] 12-13-2024 14:14-0400 SaO2% (BldA) [Mass fraction] 96 % Douglas Will MD Work Phone: [facility] 12-13-2024 14:14-0400 Systolic blood pressure 140 mm[Hg] Douglas Will MD Work Phone: [facility] 12-07-2024 13:26-0400 Body height 160 cm Douglas Will MD Work Phone: [facility] 12-07-2024 13:26-0400 Body mass index (BMI) [Ratio] 18.25 kg/m2 Douglas Will MD Work Phone: [facility] 12-07-2024 13:26-0400 Body temperature 96.21 [degF] Douglas Will MD Work Phone: [facility] 12-07-2024 13:26-0400 Body weight 46.72 kg Douglas Will MD Work Phone: [facility] 12-07-2024 13:26-0400 Diastolic blood pressure 78 mm[Hg] Douglas Will MD Work Phone: [facility] 12-07-2024 13:26-0400 Heart rate 81 /min Douglas Will MD Work Phone: [facility] 12-07-2024 13:26-0400 Respiratory rate 20 /min Douglas Will MD Work Phone: [facility] 12-07-2024 13:26-0400 SaO2% (BldA) [Mass fraction] 98 % Douglas Will MD Work Phone: [facility] 12-07-2024 13:26-0400 Systolic blood pressure 142 mm[Hg] Douglas Will MD Work Phone: [facility] 11-30-2024 11:32-0400 Body height 160 cm Cindy Bernal [employer]ULATION DEVELOPER Work Phone: [facility] 11-30-2024 11:32-0400 Body mass index (BMI) [Ratio] 17.79 kg/m2 Cindy Bernal [employer]ULATION DEVELOPER Work Phone: [facility] 11-30-2024 11:32-0400 Body temperature 95.9 [degF] Cindy Bernal SIMULATION DEVELOPER Work Phone: [facility] 11-30-2024 11:32-0400 Body weight 45.54 kg Cindyjacob Westbrookholz SIMULATION DEVELOPER Work Phone: [facility] 11-30-2024 11:32-0400 Diastolic blood pressure 68 mm[Hg] Cindy Aichholz SIMULATION DEVELOPER Work Phone: [facility] 11-30-2024 11:32-0400 Heart rate 78 /min Cindy Aichholz SIMULATION DEVELOPER Work Phone: [facility] 11-30-2024 11:32-0400 Respiratory rate 22 /min Cindy Aichholz SIMULATION DEVELOPER Work Phone: [facility] 11-30-2024 11:32-0400 SaO2% (BldA) [Mass fraction] 98 % Cindy Aichholz SIMULATION DEVELOPER Work Phone: [facility] 11-30-2024 11:32-0400 Systolic blood pressure 134 mm[Hg] Cindy Aichholz SIMULATION DEVELOPER Work Phone: [facility] 05-30-2024 14:08-0400 Body mass index (BMI) [Ratio] 18.42 kg/m2 Nolan Julio MD MPH Work Phone: [facility] 05-30-2024 14:08-0400 Body weight 47.17 kg Nolan Julio MD MPH Work Phone: [facility] 05-30-2024 14:08-0400 Diastolic blood pressure 78 mm[Hg] Nolan Julio MD MPH Work Phone: [facility] 05-30-2024 14:08-0400 Heart rate 76 /min Nolan Julio MD MPH Work Phone: [facility] 05-30-2024 14:08-0400 Systolic blood pressure 129 mm[Hg] Nolan Julio MD MPH Work Phone: [facility] 04-11-2024 10:31-0400 Body mass index (BMI) [Ratio] 18.78 kg/m2 Nolan Julio MD MPH Work Phone: [facility] 04-11-2024 10:31-0400 Body weight 48.08 kg Nolan Julio MD MPH Work Phone: [facility] 04-11-2024 10:31-0400 Diastolic blood pressure 79 mm[Hg] Nolan Julio MD MPH Work Phone: [facility] 04-11-2024 10:31-0400 Heart rate 98 /min Nolan Julio MD MPH Work Phone: [facility] 04-11-2024 10:31-0400 Systolic blood pressure 147 mm[Hg] Nolan Julio MD MPH Work Phone: [facility] 04-07-2024 11:28-0400 Body height 160 cm Douglas Will MD Work Phone: [facility] 04-07-2024 11:28-0400 Body mass index (BMI) [Ratio] 17.89 kg/m2 Douglas Will MD Work Phone: [facility] 04-07-2024 11:28-0400 Body temperature 96.6 [degF] Douglsa Will MD Work Phone: [facility] 04-07-2024 11:28-0400 Body weight 45.81 kg Douglas Will MD Work Phone: [facility] 04-07-2024 11:28-0400 Diastolic blood pressure 60 mm[Hg] Douglas Wlil MD Work Phone: [facility] 04-07-2024 11:28-0400 Heart rate 66 /min Douglas Will MD Work Phone: [facility] 04-07-2024 11:28-0400 Respiratory rate 26 /min Douglas Will MD Work Phone: [facility] 04-07-2024 11:28-0400 SaO2% (BldA) [Mass fraction] 98 % Douglas Will MD Work Phone: [facility] 04-07-2024 11:28-0400 Systolic blood pressure 142 mm[Hg] Douglas Will MD Work Phone: [facility] 04-01-2024 14:00-0400 Body temperature 97.3 [degF] Td Hutchison MD Work Phone: [facility] 04-01-2024 14:00-0400 Diastolic blood pressure 55 mm[Hg] Td Hutchison MD Work Phone: [facility] 04-01-2024 14:00-0400 Heart rate 67 /min Td Hutchison MD Work Phone: [facility] 04-01-2024 14:00-0400 Respiratory rate 19 /min Td Hutchison MD Work Phone: [facility] 04-01-2024 14:00-0400 SaO2% (BldA) [Mass fraction] 96 % Td Hutchison MD Work Phone: [facility] 04-01-2024 14:00-0400 Systolic blood pressure 128 mm[Hg] Td Hutchison MD Work Phone: [facility] 03-31-2024 07:27-0400 Body height 160 cm Td Hutchison MD Work Phone: [facility] 03-31-2024 07:27-0400 Body mass index (BMI) [Ratio] 18.2 kg/m2 Td Hutchison MD Work Phone: [facility] 03-31-2024 07:27-0400 Body weight 46.6 kg Td Hutchison MD Work Phone: [facility] 03-28-2024 09:38-0400 Body mass index (BMI) [Ratio] 18.42 kg/m2 Nolan Julio MD MPH Work Phone: [facility] 03-28-2024 09:38-0400 Body weight 47.17 kg Nolan Julio MD MPH Work Phone: [facility] 03-28-2024 09:38-0400 Diastolic blood pressure 72 mm[Hg] Nolan Julio MD MPH Work Phone: [facility] 03-28-2024 09:38-0400 Heart rate 64 /min Nolan Julio MD MPH Work Phone: [facility] 03-28-2024 09:38-0400 Systolic blood pressure 168 mm[Hg] Nolan Julio MD MPH Work Phone: [facility] 06-19-2023 13:25-0400 Blood Pressure Location Lou Lue [facility] 06-19-2023 13:25-0400 Diastolic blood pressure 78 mm[Hg] Lou Lue [facility] 06-19-2023 13:25-0400 Systolic blood pressure 132 mm[Hg] Lou Lue [facility] 06-11-2023 14:15-0400 Body height 156.21 cm Inessa Navas Other [employer] Other 06-11-2023 14:15-0400 Body mass index (BMI) [Ratio] 21.67 kg/m2 Inessa Navas Other [employer] Other 06-11-2023 14:15-0400 Body temperature 97.5 [degF] Inessa Navas Other [employer] Other 06-11-2023 14:15-0400 Body weight 52.89 kg Inessa Navas Other [employer] Other 06-11-2023 14:15-0400 Respiratory rate 18 /min Inessa Navas Other [employer] Other 06-11-2023 14:15-0400 SaO2% (BldA) [Mass fraction] 97 % Inessa Eloise Other [employer] Other 04-30-2023 14:43-0400 Body mass index (BMI) [Ratio] 20.23 kg/m2 Hennaasher Bravo [facility] 04-30-2023 14:43-0400 Body weight 51.8 kg Hennaasher Bravo [facility] [employer] [place] 04-30-2023 14:43-0400 Diastolic blood pressure 77 mm[Hg] [facility] [place] 04-30-2023 14:43-0400 Heart rate 101 /min Henna Bravo [facility] [place] 04-30-2023 14:43-0400 Systolic blood pressure 128 mm[Hg] Henna Bravo [facility] [employer] [place] 04-20-2023 17:19-0400 Body height 160.02 cm MD Douglas Will Work Phone: [facility] 04-20-2023 17:19-0400 Body temperature 97.7 [degF] MD Douglas Will Work Phone: [facility] 04-20-2023 17:19-0400 Body weight 52.16 kg MD Douglas Will Work Phone: [facility] 04-20-2023 17:19-0400 Diastolic blood pressure 60 mm[Hg] MD Douglas Will Work Phone: [facility] 04-20-2023 17:19-0400 Heart rate 77 /min MD Douglas Will Work Phone: [facility] 04-20-2023 17:19-0400 Respiratory rate 16 /min MD Douglas Will Work Phone: [facility] 04-20-2023 17:19-0400 SaO2% (BldA) [Mass fraction] 97 % MD Douglas Will Work Phone: [facility] 04-20-2023 17:19-0400 Systolic blood pressure 128 mm[Hg] MD Douglas Will Work Phone: [facility] 02-10-2023 09:09-0400 Body temperature 97.81 [degF] Daniel Araiza MD Work Phone: [employer] 02-10-2023 09:09-0400 Diastolic blood pressure 78 mm[Hg] Daniel Araiza MD Work Phone: [employer] 02-10-2023 09:09-0400 Heart rate 100 /min Daniel Araiza MD Work Phone: [employer] 02-10-2023 09:09-0400 Respiratory rate 16 /min Daniel Araiza MD Work Phone: [employer] 02-10-2023 09:09-0400 SaO2% (BldA) [Mass fraction] 99 % Daniel Araiza MD Work Phone: [employer] [facility] 02-10-2023 09:09-0400 Systolic blood pressure 126 mm[Hg] Daniel Araiza MD Work Phone: [employer] [facility] 02-03-2023 11:08-0400 Diastolic blood pressure 61 mm[Hg] Nighat Bazzi [facility] Work Phone: [employer] 02-03-2023 11:08-0400 Heart rate 83 /min Nighat Bazzi [facility] Work Phone: [employer] [facility] 02-03-2023 11:08-0400 Systolic blood pressure 102 mm[Hg] Nighat Bazzi [facility] Work Phone: [employer] 02-02-2023 14:45-0400 Blood Pressure Location Isauro RICE [facility] 02-02-2023 14:45-0400 Diastolic blood pressure 81 mm[Hg] Isauro RICE [facility] 02-02-2023 14:45-0400 Heart rate 96 /min Isauro RICE [facility] 02-02-2023 14:45-0400 Systolic blood pressure 166 mm[Hg] Isauro RICE [facility] 01-19-2023 10:36-0400 Body mass index (BMI) [Ratio] 19.31 kg/m2 Tristianluda Jluis [facility] Work Phone: [facility] 01-19-2023 10:36-0400 Body weight 49.44 kg Tristianluda Jluis [facility] Work Phone: [facility] 01-19-2023 10:36-0400 Diastolic blood pressure 91 mm[Hg] Nighat Bazzi [facility] Work Phone: [facility]AND[facility]arvar[facility] 01-19-2023 10:36-0400 Heart rate 103 /min Tristianluda Jluis [facility] Work Phone: [facility] [employer] CampaignSAM[facility]IT[facility] 01-19-2023 10:36-0400 Systolic blood pressure 166 mm[Hg] Nighat Bazzi [facility] Work Phone: [facility] [employer] [facility] 12-23-2022 10:01-0400 Diastolic blood pressure 68 mm[Hg] Henna Bravo [facility] [employer] [facility] 12-23-2022 10:01-0400 Heart rate 107 /min Henna Bravo [facility] [employer] [facility] 12-23-2022 10:01-0400 Systolic blood pressure 114 mm[Hg] Henna Bravo [facility] [employer] 12-08-2022 10:37-0400 Body mass index (BMI) [Ratio] 18.6 kg/m2 Shy Osuna [facility] 12-08-2022 10:37-0400 Body weight 47.63 kg [facility]y [facility] 12-08-2022 10:37-0400 Diastolic blood pressure 96 mm[Hg] Shy Thao RPH [facility] 12-08-2022 10:37-0400 Heart rate 93 /min [facility] 12-08-2022 10:37-0400 Systolic blood pressure 164 mm[Hg] Shy [place] [facility] 12-01-2022 14:13-0400 Blood Pressure Location Isauro [employer] [facility] 12-01-2022 14:13-0400 Diastolic blood pressure 90 mm[Hg] Isauro [employer] [facility] 12-01-2022 14:13-0400 Systolic blood pressure 171 mm[Hg] Isauro ARCHULETA [facility] 06-30-2022 10:47-0500 Body mass index (BMI) [Ratio] 19.66 kg/m2 Nighat Bazzi [facility] Work Phone: [facility] 06-30-2022 10:47-0500 Body weight 50.35 kg Nighat Bazzi [facility] Work Phone: [facility] 06-12-2022 08:48-0400 Body mass index (BMI) [Ratio] 20.02 kg/m2 Shy Thao [facility] 06-12-2022 08:48-0400 Body weight 51.26 kg Shy [place] [facility] 06-12-2022 08:48-0400 Diastolic blood pressure 69 mm[Hg] Shy Thao RPH [facility] 06-12-2022 08:48-0400 Heart rate 100 /min Shy Thao [facility] 06-12-2022 08:48-0400 Systolic blood pressure 112 mm[Hg] Shy Thao [facility] 06-04-2022 13:13-0400 Body mass index (BMI) [Ratio] 20.73 kg/m2 Shy Osuna [facility] 06-04-2022 13:13-0400 Body weight 53.07 kg Shy Osuna [facility] 06-04-2022 13:13-0400 Diastolic blood pressure 74 mm[Hg] Shy Osuna [facility] 06-04-2022 13:13-0400 Heart rate 88 /min Shy [facility] 06-04-2022 13:13-0400 Systolic blood pressure 144 mm[Hg] Shy Osuna [facility] 04-30-2022 13:15-0400 Body temperature 97 [degF] Chair Backchat Work Phone: [facility] 04-30-2022 13:15-0400 Diastolic blood pressure 74 mm[Hg] Chair Joann Work Phone: [facility] 04-30-2022 13:15-0400 Heart rate 89 /min Chair Joann Work Phone: [facility] 04-30-2022 13:15-0400 Respiratory rate 18 /min Chair [place] Work Phone: [facility] 04-30-2022 13:15-0400 SaO2% (BldA) [Mass fraction] 97 % Chair Joann Work Phone: [facility] 04-30-2022 13:15-0400 Systolic blood pressure 132 mm[Hg] Chair [place] Work Phone: [facility] 04-28-2022 13:15-0400 Body temperature 98.1 [degF] Chair Joann Work Phone: [facility] 04-28-2022 13:15-0400 Diastolic blood pressure 71 mm[Hg] Chair [place] Work Phone: [facility] 04-28-2022 13:15-0400 Heart rate 100 /min Chair Joann Work Phone: [facility] 04-28-2022 13:15-0400 Respiratory rate 16 /min Chair [place] Work Phone: [facility] 04-28-2022 13:15-0400 SaO2% (BldA) [Mass fraction] 98 % Chair [place] Work Phone: [facility] 04-28-2022 13:15-0400 Systolic blood pressure 149 mm[Hg] Chair [place] Work Phone: [facility] 04-24-2022 13:03-0400 Body temperature 98.71 [degF] Chair Joann Work Phone: [facility] 04-24-2022 13:03-0400 Diastolic blood pressure 55 mm[Hg] Chair Joann Work Phone: [facility] 04-24-2022 13:03-0400 Heart rate 87 /min Chair [place] Work Phone: [facility] 04-24-2022 13:03-0400 Respiratory rate 18 /min Chair [place] Work Phone: [facility] 04-24-2022 13:03-0400 SaO2% (BldA) [Mass fraction] 96 % Chair [place] Work Phone: [facility] 04-24-2022 13:03-0400 Systolic blood pressure 109 mm[Hg] Chair Joann Work Phone: [facility] 04-14-2022 13:55-0400 Blood Pressure Location Isauro RICE [facility] 04-14-2022 13:55-0400 Diastolic blood pressure 81 mm[Hg] Isauro RICE [facility] 04-14-2022 13:55-0400 Heart rate 77 /min Isauro RICE [facility] 04-14-2022 13:55-0400 Systolic blood pressure 125 mm[Hg] Isauro ARCHULETA [facility] 04-03-2022 10:29-0400 SaO2% (BldA) [Mass fraction] 97 % Karsten Dyer MD Work Phone: [employer] 04-03-2022 07:00-0400 Body temperature 97.39 [degF] Karsten Dyer MD Work Phone: [employer] 04-03-2022 07:00-0400 Diastolic blood pressure 91 mm[Hg] Karsten Dyer MD Work Phone: [employer] 04-03-2022 07:00-0400 Heart rate 91 /min Karsten Dyer MD Work Phone: [employer] 04-03-2022 07:00-0400 Respiratory rate 16 /min Karsten Dyer MD Work Phone: [employer] 04-03-2022 07:00-0400 Systolic blood pressure 179 mm[Hg] Karsten Dyer MD Work Phone: [employer] 04-02-2022 15:47-0400 Body height 160 cm Karsten Dyer MD Work Phone: [employer] 04-02-2022 15:47-0400 Body mass index (BMI) [Ratio] 22.46 kg/m2 Karsten Dyer MD Work Phone: [employer] 04-02-2022 15:47-0400 Body weight 57.52 kg Karsten Dyer MD Work Phone: [employer] 04-02-2022 11:16-0400 Body mass index (BMI) [Ratio] 22.86 kg/m2 Shy Osuna [facility] [employer] 04-02-2022 11:16-0400 Body weight 56.7 kg [address]y [place]una [facility] 02-11-2022 11:19-0400 Body mass index (BMI) [Ratio] 21.79 kg/m2 Nighat Bazzi [facility] Work Phone: [facility] 02-11-2022 11:19-0400 Body weight 55.79 kg Nighat [facility] Work Phone: [facility] 02-11-2022 11:19-0400 Diastolic blood pressure 75 mm[Hg] Nighat Bazzi [facility] Work Phone: [facility] 02-11-2022 11:19-0400 Heart rate 87 /min Nighat Bazzi [facility] Work Phone: [facility] 02-11-2022 11:19-0400 Systolic blood pressure 141 mm[Hg] Nighat [facility] Work Phone: [facility] 02-06-2022 12:01-0400 Body height 160 cm Jorge Wilson MD Work Phone: [facility] 02-06-2022 12:01-0400 Body weight 56.29 kg Jorge Wilson MD Work Phone: [facility] 01-29-2022 10:36-0400 Body mass index (BMI) [Ratio] 21.62 kg/m2 Tristianluda Jluis [facility] Work Phone: [facility] 01-29-2022 10:36-0400 Body weight 55.34 kg Nighat Bazzi [facility] Work Phone: [facility] 01-29-2022 10:36-0400 Diastolic blood pressure 81 mm[Hg] Tristianluda Jluis [facility] Work Phone: [facility] 01-29-2022 10:36-0400 Heart rate 90 /min Tristianluda Bazzi [facility] Work Phone: [facility] 01-29-2022 10:36-0400 Systolic blood pressure 155 mm[Hg] Nighat Bazzi [facility] Work Phone: [facility] [employer] 01-28-2022 14:53-0400 Blood Pressure Location Isauro ARCHULETA [facility] 01-28-2022 14:53-0400 Diastolic blood pressure 75 mm[Hg] Isauro RICE [facility] 01-28-2022 14:53-0400 Heart rate 68 /min Isauro ARCHULETA [facility] 01-28-2022 14:53-0400 Systolic blood pressure 129 mm[Hg] Isauro ARCHULETA [facility] 01-01-2022 10:42-0400 Body mass index (BMI) [Ratio] 21.26 kg/m2 Nighat Bazzi [facility] Work Phone: [facility] [employer] 01-01-2022 10:42-0400 Body weight 54.43 kg Nighat Bazzi [facility] Work Phone: [facility] [employer] 01-01-2022 10:42-0400 Diastolic blood pressure 80 mm[Hg] Nighat Bazzi [facility] Work Phone: [employer] 01-01-2022 10:42-0400 Heart rate 107 /min Nighat Bazzi [facility] Work Phone: [employer] 01-01-2022 10:42-0400 Systolic blood pressure 124 mm[Hg] Nighat Bazzi [facility] Work Phone: [employer] 12-30-2021 08:48-0400 Body height 160 cm Ana Maria Amato DO Work Phone: [facility] 12-30-2021 08:48-0400 Body weight 54.43 kg Ana Maria Urbano DO Work Phone: [facility] 12-23-2021 14:20-0400 Blood Pressure Location Isauro ARCHULETA [facility] 12-23-2021 14:20-0400 Diastolic blood pressure 68 mm[Hg] Isauro ARCHULETA [facility] 12-23-2021 14:20-0400 Heart rate 62 /min Isauro ARCHULETA [facility] 12-23-2021 14:20-0400 Systolic blood pressure 124 mm[Hg] Isauro ARCHULETA [facility] 11-27-2021 12:14-0400 Body height 160 cm Nguyễn Jean MD Work Phone: [facility] 11-27-2021 12:14-0400 Body weight 53.98 kg Nguyễn Jean MD Work Phone: [facility] 11-25-2021 11:03-0400 Body mass index (BMI) [Ratio] 21.26 kg/m2 Shy [place] [facility] 11-25-2021 11:03-0400 Body weight 54.43 kg Shy [place] [facility] 11-25-2021 11:03-0400 Diastolic blood pressure 76 mm[Hg] Shy Thao [facility] 11-25-2021 11:03-0400 Heart rate 91 /min Shy Thao [facility] 11-25-2021 11:03-0400 Systolic blood pressure 120 mm[Hg] Shy [place] [facility] 07-03-2021 14:01-0500 Body height 160.02 cm Epi Andrews Work Phone: [address] Work Phone: 07-03-2021 14:01-0500 Body mass index (BMI) [Ratio] 17.24 kg/m2 Epi Navarro Darryl Work Phone: IW-Stdutmt-Zieglnf [address] Work Phone: 07-03-2021 14:01-0500 Body surface area Derived from formula 1.42 m2 Epi Navarro [place] Work Phone: BP-Qrusilx-Rxcclso [address] Work Phone: 07-03-2021 14:01-0500 Body weight 44.14 kg Epi Navarro Darryl Work Phone: LF-Txxklqb-Lxeqftu [address] Work Phone: 07-03-2021 14:01-0500 Diastolic blood pressure 72 mm[Hg] Epi Navarro Darryl Work Phone: LQ-Ulgrwjj-Tozejhu [address] Work Phone: 07-03-2021 14:01-0500 Heart rate 96 /min Epi Navarro [place] Work Phone: OM-Zfdprtm-Rnsgorl [address] Work Phone: 07-03-2021 14:01-0500 Systolic blood pressure 118 mm[Hg] Epi F Darryl Work Phone: IR-Anvjroh-Wgrwipb [address] Work Phone: 05-15-2021 13:09-0400 Body height 160.02 cm Epi Navarro Darryl Work Phone: FH-Pujidhm-Vwsprp [facility] Work Phone: 05-15-2021 13:09-0400 Body mass index (BMI) [Ratio] 22.5 kg/m2 Epi F Darryl Work Phone: YN-Qklhltu-Myqwac [facility] Work Phone: 05-15-2021 13:09-0400 Body surface area Derived from formula 1.59 m2 Epi Andrews Work Phone: HT-Jcdmncb-Issjlk [facility] Work Phone: 05-15-2021 13:09-0400 Body weight 57.61 kg Epi Andrews Work Phone: TX-Fiynrnm-Eyrycm [facility] Work Phone: 05-15-2021 13:09-0400 Diastolic blood pressure 98 mm[Hg] Epi Andrews Work Phone: LG-Ejoothe-Juecvs [facility] Work Phone: 05-15-2021 13:09-0400 Heart rate 97 /min Epi Andrews Work Phone: MW-Siwsmca-Lrvjab [facility] Work Phone: 05-15-2021 13:09-0400 Systolic blood pressure 152 mm[Hg] Epi Andrews Work Phone: KW-Ecavmdi-Oozzuq [facility] Work Phone: 05-15-2021 13:09-0400 0 1 Epi Andrews Work Phone: EQ-Hxaegoi-Xrnjke [facility] Work Phone: Comment on above: [employer] 05-09-2021 11:02-0400 Body mass index (BMI) [Ratio] 22.32 kg/m2 Shy [place] [facility] [employer] Work Phone: 05-09-2021 11:02-0400 Body weight 57.15 kg Shy [place]una [facility] [employer] Work Phone: 05-09-2021 11:02-0400 Diastolic blood pressure 95 mm[Hg] Shy Osuna [facility] [employer] Work Phone: 05-09-2021 11:02-0400 Heart rate 89 /min Shy Osuna [facility] [employer] Work Phone: 05-09-2021 11:02-0400 Systolic blood pressure 163 mm[Hg] Shy [place]una [facility] Work Phone: 03-20-2021 13:14-0400 Body height 160.02 cm Epi Andrews Work Phone: [facility] [facility] Work Phone: 03-20-2021 13:14-0400 Body mass index (BMI) [Ratio] 22.44 kg/m2 Epi Andrews Work Phone: [facility] Work Phone: 03-20-2021 13:14-0400 Body surface area Derived from formula 1.59 m2 Epi Navarro Darryl Work Phone: [facility] [facility] Work Phone: 03-20-2021 13:14-0400 Body temperature 96.7 [degF] Epi Andrews Work Phone: [facility] [facility] Work Phone: 03-20-2021 13:14-0400 Body weight 57.47 kg Epi Andrews Work Phone: [facility] [facility] Work Phone: 03-20-2021 13:14-0400 Diastolic blood pressure 100 mm[Hg] Epi Navarro Darryl Work Phone: [facility] Work Phone: 03-20-2021 13:14-0400 Heart rate 103 /min Epi F Darryl Work Phone: [facility] Work Phone: 03-20-2021 13:14-0400 Respiratory rate 18 /min Epi F Darryl Work Phone: [facility] [facility] Work Phone: 03-20-2021 13:14-0400 SaO2% (BldA) [Mass fraction] 97 % Epi Andrews Work Phone: [facility] Work Phone: 03-20-2021 13:14-0400 Systolic blood pressure 153 mm[Hg] Epi Andrews Work Phone: [facility] I Work Phone: 03-20-2021 13:14-0400 0 1 Epi Andrews Work Phone: [facility] I Work Phone: Comment on above: [employer] 03-19-2021 11:05-0400 Body mass index (BMI) [Ratio] 22.32 kg/m2 Shy [employer] [facility] [employer] Work Phone: 03-19-2021 11:05-0400 Body weight 57.15 kg Shy [employer] [facility] [employer] Work Phone: 03-19-2021 11:05-0400 Diastolic blood pressure 78 mm[Hg] Shy [employer] [facility] [employer] Work Phone: 03-19-2021 11:05-0400 Heart rate 86 /min Shy Duranles [facility] [employer] Work Phone: 03-19-2021 11:05-0400 Systolic blood pressure 139 mm[Hg] Shy Duranles [facility] [employer] Work Phone: 03-05-2021 08:31-0400 Body height 160.02 cm Epi Andrews Work Phone: YE-Ztvbfbljzfhfal-P [place] Work Phone: 03-05-2021 08:31-0400 Body mass index (BMI) [Ratio] 22.73 kg/m2 Epililliana Andrews Work Phone: WX-Kphrtzjwgunhdz-H [place] Work Phone: 03-05-2021 08:31-0400 Body surface area Derived from formula 1.6 m2 Epi Andrews Work Phone: OW-Aynsqqdkslkqsc-V [place] Work Phone: 03-05-2021 08:31-0400 Body temperature 96.1 [degF] Epi Andrews Work Phone: GD-Obwlukawvtmyix-H [place] Work Phone: 03-05-2021 08:31-0400 Body weight 58.2 kg Epi Andrews Work Phone: RJ-Xazeulffnqvlus-S [place] Work Phone: 02-20-2021 11:11-0400 Body mass index (BMI) [Ratio] 22.64 kg/m2 Henna Bravo [employer] Work Phone: 02-20-2021 11:11-0400 Body weight 57.97 kg Henna Bravo [employer] Work Phone: 02-20-2021 11:11-0400 Diastolic blood pressure 81 mm[Hg] Henna Bravo [employer] Work Phone: 02-20-2021 11:11-0400 Heart rate 86 /min Henna Bravo [facility] [employer] Work Phone: 02-20-2021 11:11-0400 Systolic blood pressure 131 mm[Hg] Henna Bravo [employer] Work Phone: 02-13-2021 15:47-0400 Body height 160.02 cm Epi Andrews Work Phone: QZ-Cgsqdnantxdfob-Y [place] Work Phone: 02-13-2021 15:47-0400 Body mass index (BMI) [Ratio] 22.67 kg/m2 Epi Andrews Work Phone: VF-Movmbdyivbfimi-R [place] Work Phone: 02-13-2021 15:47-0400 Body surface area Derived from formula 1.6 m2 Epi Andrews Work Phone: YM-Yusfdhqatxbwfb-A [place] Work Phone: 02-13-2021 15:47-0400 Body temperature 96.9 [degF] Epi Andrews Work Phone: SE-Cucfffixepecyi-P [place] Work Phone: 02-13-2021 15:47-0400 Body weight 58.06 kg Epi Andrews Work Phone: UA-Dejgluiywbhrwe-J [place] Work Phone: 02-13-2021 15:47-0400 0 1 Epi Andrews Work Phone: VY-Lzfkyyxxdfnkyn-R [place] Work Phone: Comment on above: [employer] 01-28-2021 10:54-0400 Body mass index (BMI) [Ratio] 22.67 kg/m2 Nighat Jluis [facility] Work Phone: [employer] Work Phone: 01-28-2021 10:54-0400 Body weight 58.06 kg Nighat Bazzi [facility] Work Phone: [employer] Work Phone: 01-28-2021 10:54-0400 Diastolic blood pressure 102 mm[Hg] Nighat Bazzi [facility] Work Phone: [employer] Work Phone: 01-28-2021 10:54-0400 Heart rate 83 /min Nighat Bazzi [facility] Work Phone: [employer] Work Phone: 01-28-2021 10:54-0400 Systolic blood pressure 161 mm[Hg] Nighat Bazzi [facility] Work Phone: [facility] Work Phone: 01-02-2021 15:07-0400 Body height 160.02 cm Epi Andrews Work Phone: AG-Ejqqowgigsnmie-S [place] Work Phone: 01-02-2021 15:07-0400 Body mass index (BMI) [Ratio] 22.74 kg/m2 Epi Andrews Work Phone: VP-Qrmdmzfhpqvrpk-S [place] Work Phone: 01-02-2021 15:07-0400 Body surface area Derived from formula 1.6 m2 Epi Andrews Work Phone: VQ-Jkvxggbqjdvuje-Q [place] Work Phone: 01-02-2021 15:07-0400 Body temperature 97.1 [degF] Epi Andrews Work Phone: GG-Rpkvbvyidztthk-E [place] Work Phone: 01-02-2021 15:07-0400 Body weight 58.23 kg Epi Andrews Work Phone: GI-Rdwafpjuwfougb-I [place] Work Phone: 01-02-2021 15:07-0400 Respiratory rate 16 /min Epi Andrews Work Phone: AO-Nglwizkchwbklj-F [place] Work Phone: 12-17-2020 10:38-0400 Body mass index (BMI) [Ratio] 22.85 kg/m2 Shy Osuna [facility] Work Phone: 12-17-2020 10:38-0400 Body weight 58.51 kg Shy Osuna [facility] Work Phone: 12-17-2020 10:38-0400 Diastolic blood pressure 79 mm[Hg] Shy Osuna [facility] [employer] Phone: 12-17-2020 10:38-0400 Heart rate 102 /min Shy Osuna [facility] [employer] Phone: 12-17-2020 10:38-0400 Systolic blood pressure 131 mm[Hg] Shy Osuna [facility] [employer] Phone: 07-11-2020 11:01-0500 BMI (Body Mass Index) 23.17 kg/m2 [facility] [place] 07-11-2020 11:01-0500 Body weight 59.33 kg [facility] [place] 07-11-2020 11:01-0500 BP Diastolic 95 mm[Hg] [facility] [place] 07-11-2020 11:01-0500 BP Systolic 133 mm[Hg] [facility] [place] 07-11-2020 11:01-0500 Pulse (Heart Rate) 108 /min [facility], [place] 06-25-2020 10:59-0500 BMI (Body Mass Index) 23.38 kg/m2 [facility], [place] 06-25-2020 10:59-0500 Body weight 59.88 kg [facility] , [place] 06-25-2020 10:59-0500 BP Diastolic 85 mm[Hg] [facility] , [place] 06-25-2020 10:59-0500 BP Systolic 141 mm[Hg] [facility] , [place] 06-25-2020 10:59-0500 Pulse (Heart Rate) 99 /min [place], [place] 05-28-2020 10:26-0400 Body Temperature 97.9 [degF] [facility], [place] 04-17-2020 15:59-0400 BP Diastolic 100 mm[Hg] Epi Andrews [place], [place] Comment on above: Dr Grupo RECIO notified 04-17-2020 15:59-0400 BP Systolic 195 mm[Hg] Epi Darryl [facility] [employer] [place] Comment on above: Dr Grupo RECIO notified 04-17-2020 15:59-0400 Pulse (Heart Rate) 90 /min Epi Andrews [facility], [place] 04-17-2020 15:59-0400 Pulse Oximetry 92 % Epi Owen [facility] , [place] 04-17-2020 15:59-0400 Respiratory Rate 18 /min Epi Andrews [facility] , [place] 04-17-2020 11:55-0400 BMI (Body Mass Index) 23.21 kg/m2 Epi Andrews [facility], [place] 04-17-2020 11:55-0400 Body Temperature 98.29 [degF] Epi Andrews [facility], [place] 04-17-2020 11:55-0400 Body weight 59.42 kg Epi Andrews [facility] , [place] 04-06-2020 07:15-0400 Body Temperature 98.2 [degF] Toni Moore [facility], [place] 04-06-2020 07:15-0400 BP Diastolic 92 mm[Hg] [facility] [place] 04-06-2020 07:15-0400 BP Systolic 153 mm[Hg] [facility] [place] 04-06-2020 07:15-0400 Pulse (Heart Rate) 92 /min [facility] [place] 04-06-2020 07:15-0400 Pulse Oximetry 97 % [facility] , [place] 04-06-2020 07:15-0400 Respiratory Rate 16 /min [facility], [place] 04-06-2020 03:45-0400 BMI (Body Mass Index) 23.51 kg/m2 Toni Moore [facility], [place] 04-06-2020 03:45-0400 [facility] [place] 04-04-2020 07:36-0400 Height 160 cm [facility] , [place] 02-14-2020 15:05-0400 Body Temperature 98.4 [degF] Nighat [facility], [place] 01-25-2020 11:08-0400 Body Temperature 99.1 [degF] [facility] [place] 11-07-2019 10:42-0400 BMI (Body Mass Index) 24.09 kg/m2 [facility] [place] 11-07-2019 10:42-0400 Body weight 61.69 kg [facility] , [place] 11-07-2019 10:42-0400 BP Diastolic 61 mm[Hg] [facility] , [place] 11-07-2019 10:42-0400 BP Systolic 94 mm[Hg] [facility] , [place] 11-07-2019 10:42-0400 Pulse (Heart Rate) 88 /min [facility], [place] 07-13-2019 11:12-0500 BMI (Body Mass Index) 24.98 kg/m2 [facility], [place] 07-13-2019 11:12-0500 Body weight 63.96 kg [facility] , [place] 07-13-2019 11:12-0500 BP Diastolic 71 mm[Hg] [facility] , [place] 07-13-2019 11:12-0500 BP Systolic 117 mm[Hg] [facility] , [place] 07-13-2019 11:12-0500 Pulse (Heart Rate) 81 /min [facility], [place] 05-30-2019 11:02-0400 BMI (Body Mass Index) 24.98 kg/m2 [facility], [place] 05-30-2019 11:02-0400 Body weight 63.96 kg [facility] , [place] 05-30-2019 11:02-0400 BP Diastolic 76 mm[Hg] [facility] , [place] 05-30-2019 11:02-0400 BP Systolic 126 mm[Hg] [facility] , [place] 05-30-2019 11:02-0400 Pulse (Heart Rate) 75 /min [facility], [place]ACI[place] 04-26-2019 11:25-0400 BP Diastolic 76 mm[Hg] Henna Bravo [facility] , [place] 04-26-2019 11:25-0400 BP Systolic 128 mm[Hg] Henna Bravo [facility] , [place]ACI[place] 04-26-2019 11:25-0400 Pulse (Heart Rate) 76 /min Henna Bravo [facility], [place] 04-05-2019 10:56-0400 BP Diastolic 74 mm[Hg] Nighat Bazzi [facility] , [place] 04-05-2019 10:56-0400 BP Systolic 107 mm[Hg] Nighat [facility] , [place] 04-05-2019 10:56-0400 Pulse (Heart Rate) 84 /min [facility], [place] Encounters Encounter Date Encounter Type Care Provider Facility Start: 05-24-2025 End: 05-24-2025 ambulatory Douglas Will MD Work Phone: [facility] Work Phone: Start: 05-24-2025 End: 05-24-2025 Patient encounter procedure Douglas Will MD -[facility] Work Phone: Start: 05-23-2025 End: 05-23-2025 ambulatory [facility] Start: 05-17-2025 End: 05-17-2025 ambulatory DOUGLAS [facility] Start: 05-16-2025 End: 05-16-2025 ambulatory RHODA [facility] Start: 05-16-2025 End: 05-16-2025 Subsequent hospital visit by physician Alonso Med Onc Chair 7 [facility] Comment on above: Anemia due to stage 3 chronic kidney disease, 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) (Primary Dx) Start: 05-10-2025 End: 05-10-2025 ambulatory Douglas Will MD Work Phone: [facility] Work Phone: Start: 05-10-2025 End: 05-10-2025 Patient encounter procedure Atilio Wade MD -[facility] Work Phone: Start: 05-09-2025 End: 05-09-[facility] Start: 05-09-2025 End: 05-09-2025 Subsequent hospital visit by physician Alonso Med Onc Fast Track Chair 1 Schedule [facility] Comment on above: Anemia due to stage 3 chronic kidney disease, 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) (Primary Dx) Start: 05-03-2025 End: 05-03-2025 Bamboo flowsheet Timothy Melodie Ingrid DO Work Phone: [facility] Start: 05-03-2025 End: 05-03-2025 Bamboo flowsheet Timothy K Ingrid DO Work Phone: [facility] Start: 05-03-2025 End: 05-03-2025 Office outpatient visit 25 minutes Timothyaline Penn DO Work Phone: [facility] Comment on above: Chronic obstructive pulmonary disease, unspecified COPD type (HCC); COPD, mild (HCC) Start: 05-03-2025 End: 05-03-2025 ambulatory TIMOTHY PENN Not Available Start: 05-02-2025 End: 05-02-2025 [facility] Start: 05-02-2025 End: 05-02-2025 Subsequent hospital visit by physician Alonso Laboratory Schedule [facility] Comment on above: Normocytic anemia; KARLEE (acute kidney injury) Start: 04-26-2025 End: 04-26-2025 Evaluation and management of inpatient Kendra Herrera MD Work Phone: [facility] Comment on above: A-fib (HCC) (Primary Dx); Atrial fibrillation, unspecified type (HCC); Presence of Watchman left atrial appendage closure device Start: 04-07-2025 End: 04-07-2025 Telephone encounter Douglas Will MD Work Phone: [facility] Start: 04-06-2025 End: 04-06-2025 Bamboo flowsheet Douglas Will MD Work Phone: [facility] Start: 04-06-2025 End: 04-06-2025 Bamboo flowsheet Douglas Will MD Work Phone: [facility] Start: 04-06-2025 End: 04-06-2025 Office outpatient visit 25 minutes Douglas Will MD Work Phone: [facility] Comment on above: CAD in [place] artery (Primary Dx); Lumbar spondylosis; Iron 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 dietary iron intake; Chronic heart failure with preserved ejection fraction (HFpEF) (HCC); Severe protein-calorie malnutrition (HHS-HCC); SOB (shortness of breath) Start: 04-06-2025 End: 04-06-2025 ambulatory DOUGLAS WILL Not Available Start: 03-31-2025 End: 03-31-2025 External Result Encounter Douglas Will MD Work Phone: [facility] External Department Unsolicited Start: 03-31-2025 End: 03-31-2025 External Result Encounter Douglas Will MD Work Phone: [facility] External Department Unsolicited Start: 03-22-2025 End: 03-24-2025 Clinisync Result Encounter Generic External Data Provider [facility] External Department Unsolicited Start: 03-22-2025 End: 03-24-2025 Clinisync Result Encounter Generic External Data Provider [facility] External Department Unsolicited Start: 03-21-2025 End: 03-24-2025 Evaluation and management of inpatient Larisa Reardon MD Work Phone: [facility] Comment on above: KARLEE (acute kidney in jury) (Primary Dx); Elevated troponin; Injury of head, initial encounter; Frequent falls; Shortness of breath Start: 03-20-2025 End: 03-20-2025 Emergency department patient visit Ashish Carpio MD Work Phone: [facility] Emergency Department Comment on above: Skin tear of left lo wer leg without complication, initial encounter (Primary Dx); Elevated brain natriuretic peptide (BNP) level; Anemia, unspecified type; COPD exacerbation (HCC) Start: 03-20-2025 End: 03-20-2025 ambulatory DOUGLAS WILL [facility] Start: 03-16-2025 ambulatory DOUGLAS WILL [facility] Start: 03-08-2025 End: 03-08-2025 Bamboo flowsheet Timothy Melodie Ingrid DO Work Phone: [facility] Start: 03-08-2025 End: 03-08-2025 Bamboo flowsheet Timothy Melodie Ingrid DO Work Phone: [facility] Start: 03-08-2025 End: 03-08-2025 Office outpatient new 60 minutes Timothy Melodie Ingrid DO Work Phone: [facility] Comment on above: Chronic obstructive pulmonary disease, unspecified COPD type (HCC); SOB (shortness of breath) Start: 03-08-2025 End: 03-08-2025 ambulatory TIMOTHY PENN Not Available Start: 03-06-2025 End: 03-06-2025 Bamboo flowsheet Lurdes Toney PA Work Phone: [facility] Start: 03-06-2025 End: 03-06-2025 Bamboo flowsheet Lurdes Toney PA Work Phone: [facility] Start: 03-02-2025 End: 03-02-2025 ambulatory DOUGLAS WILL [facility] Start: 02-21-2025 End: 02-21-2025 ambulatory REYNA BRAVO Not Available Start: 02-21-2025 End: 02-21-2025 Bamboo flowsheet Reyna Bravo PA Work Phone: [facility] Start: 02-21-2025 End: 02-21-2025 Bamboo flowsheet Reyna Bravo PA Work Phone: [facility] Start: 02-21-2025 End: 02-21-2025 Office outpatient visit 15 minutes Reyna Bravo PA Work Phone: [facility] Comment on above: History of right kne e joint replacement (Primary Dx); Acute pain of right knee Start: 02-20-2025 End: 02-20-2025 Bamboo flowsheet Douglas Will MD Work Phone: [facility] Start: 02-20-2025 End: 02-20-2025 Bamboo flowsheet Douglas Will MD Work Phone: [facility] Start: 02-20-2025 End: 02-20-2025 Office outpatient visit 25 minutes Douglas Will MD Work Phone: [facility] Comment on above: SOB (shortness of br eath) (Primary Dx); CAD in [place] artery ; Chronic obstructive pulmonary disease, unspecified COPD type (HCC); Iron 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 dietary iron intake; MDD (major depressive disorder), recurrent episode, moderate (HCC); Orthostatic hypotension Start: 02-20-2025 End: 02-20-2025 ambulatory DOUGLAS WILL Not Available Start: 02-16-2025 End: 02-16-2025 ambulatory ROHDA QUEZADA [facility] Start: 02-16-2025 End: 02-16-2025 Subsequent hospital visit by physician Douglas Will MD Work Phone: [facility] Comment on above: Normocytic anemia Start: 02-16-2025 End: 02-16-2025 Clinisync Result Encounter Generic External Data Provider [facility] External Department Unsolicited Start: 02-16-2025 End: 02-16-2025 Clinisync Result Encounter Generic External Data Provider [facility] External Department Unsolicited Start: 02-13-2025 End: 02-13-2025 [facility]ulatory [facility] Start: 02-13-2025 End: 02-13-2025 Subsequent hospital visit by physician Douglas Will MD Work Phone: [facility] Comment on above: SOB (shortness of br eath) on exertion Start: 02-13-2025 End: 02-13-2025 Clinisync Result Encounter Generic External Data Provider [facility] External Department Unsolicited Start: 02-13-2025 End: 02-13-2025 Clinisync Result Encounter Generic External Data Provider [facility] External Department Unsolicited Start: 02-09-2025 End: 02-09-2025 Office outpatient visit 25 minutes Berenice Rudolph FARM FACILITY MANAGER-BIOGEOGRAPHER Work Phone: [facility] Comment on above: Gastroesophageal ref lux disease, unspecified whether esophagitis present (Primary Dx); Dysphagia, unspecified type; Status post insertion of percutaneous endoscopic gastrostomy (PEG) tube (Multi) Start: 01-26-2025 End: 01-26-2025 ambulatory [facility] Start: 01-24-2025 End: 01-24-2025 Clinisync Result Encounter Douglas Will MD Work Phone: [facility] External Department Unsolicited Start: 01-24-2025 End: 01-24-2025 Clinisync Result Encounter Douglas Will MD Work Phone: [facility] External Department Unsolicited Start: 01-24-2025 End: 01-30-2025 Orders Only Douglas Will MD Work Phone: [facility] Comment on above: Restless leg syndrom e Start: 01-13-2025 End: 01-13-2025 Telephone encounter Capri Mathtews FARM FACILITY MANAGER-BIOGEOGRAPHER Work Phone: [facility] Start: 01-13-2025 End: 01-13-2025 Office outpatient visit 5 minutes Josette RECIO Work Phone: [facility] Orthopedics/Trauma and Adult Reconstruction Comment on above: Age-related osteopor osis without current pathological fracture (Primary Dx) Start: 01-13-2025 End: 01-13-2025 ambulatory DOUGLAS WILL [facility] Start: 01-12-2025 End: 01-12-2025 Office outpatient visit 25 minutes Douglas Will MD Work Phone: [facility] Comment on above: SOB (shortness of br eath) (Primary Dx); Severe protein-calorie malnutrition (CMS/HCC); Chronic heart failure with preserved ejection fraction (HFpEF) (CMS/HCC); CAD in [place] artery (CMS/HCC); Adult hypothyroidism (CMS/HCC); Chronic obstructive pulmonary disease, unspecified COPD type (CMS/HCC); Encounter for long-term 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 medication; Iron 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 dietary iron intake; CKD stage 3a, GFR 45-59 ml/min (CMS/HCC) Start: 01-12-2025 End: 01-12-2025 ambulatory DOUGLAS WILL Not Available Start: 01-04-2025 End: 01-04-2025 Orders Only Douglas Will MD Work Phone: [facility] Comment on above: Chronic obstructive pulmonary disease, unspecified COPD type (CMS/HCC) (Primary Dx) Start: 01-03-2025 End: 01-03-2025 Orders Only Douglas Will MD Work Phone: [facility] Comment on above: Chronic obstructive pulmonary disease, unspecified COPD type (CMS/HCC) (Primary Dx); SOB (shortness of breath) Start: 12-23-2024 ambulatory DOUGLAS WILL [facility] Start: 12-23-2024 End: 12-23-2024 Bamboo flowsheet Douglas Will MD Work Phone: [facility] Start: 12-23-2024 End: 12-23-2024 Bamboo flowsheet Douglas Will MD Work Phone: [facility] Start: 12-23-2024 End: 12-23-2024 External Result Encounter Douglas Will MD Work Phone: [facility] External Department Unsolicited Start: 12-23-2024 End: 12-23-2024 Transitional care manage srvc 7 day discharge Douglas Will MD Work Phone: [facility] Comment on above: Iron deficiency anem ia secondary to inadequate dietary iron intake (Primary Dx); Hypoalbuminemia; SOB (shortness of breath); Paroxysmal atrial fibrillation (CMS/HCC) Start: 12-23-2024 End: 12-23-2024 ambulatory DOUGLAS WILL Not Available Start: 12-20-2024 ambulatory DOUGLAS [facility] Start: 12-16-2024 End: 12-16-2024 Orders Only Negrita Cevallos FARM FACILITY MANAGER-BIOGEOGRAPHER Work Phone: [facility] - [facility] Care Start: 12-15-2024 End: 12-15-2024 Orders Only Negrita Cevallos FARM FACILITY MANAGER-BIOGEOGRAPHER Work Phone: [facility] - Wound Care Outpatient Comment on above: Non-pressure chronic ulcer left lower leg, limited to breakdown skin ([facility]) (Primary Dx) Start: 12-14-2024 End: 12-14-2024 Orders Only Negrita Cevallos FARM FACILITY MANAGER-BIOGEOGRAPHER Work Phone: [facility] Start: 12-13-2024 End: 12-16-2024 Evaluation and management of inpatient [facility] Start: 12-13-2024 End: 12-13-2024 Office outpatient visit 25 minutes Douglas Will MD Work Phone: [facility] Comment on above: Orthostatic hypotens ion (Primary Dx); Chest pain, unspecified type; SOB (shortness of breath) Start: 12-13-2024 End: 12-13-2024 ambulatory DOUGLAS WILL Not Available Start: 12-13-2024 End: 12-13-2024 Telephone encounter [facility] Start: 12-12-2024 End: 12-12-2024 ambulatory DOUGLAS [facility] Start: 12-09-2024 End: 12-09-2024 Telephone encounter May Gale CMA [facility] Start: 12-09-2024 End: 12-09-2024 Emergency department patient visit [facility] Start: 12-08-2024 End: 12-08-[address] [facility] Start: 12-08-2024 End: 12-08-2024 External Result Encounter Douglas Will MD Work Phone: [facility] External Department Unsolicited Start: 12-08-2024 End: 12-08-2024 External Result Encounter Douglas Will MD Work Phone: [facility] External Department Unsolicited Start: 12-07-2024 End: 12-07-2024 Bamboo flowsheet Douglas Will MD Work Phone: [facility] Start: 12-07-2024 End: 12-07-2024 Bamboo flowsheet Douglas Will MD Work Phone: [facility] Start: 12-07-2024 End: 12-07-2024 Office outpatient visit 15 minutes Douglas Will MD Work Phone: [facility] Comment on above: Medicare annual well ness visit, subsequent (Primary Dx); Adult hypothyroidism (CMS/HCC); Encounter for long-term 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 medication; Essential hypertension, benign (CMS/HCC); Prediabetes; Open wound of left lower leg, subsequent encounter; CAD in [place] artery (CMS/HCC); Restless leg syndrome; Hiatal hernia with gastroesophageal reflux Start: 12-07-2024 End: 12-07-2024 Patient encounter procedure Douglas Will MD Work Phone: [facility] Work Phone: Start: 12-07-2024 End: 12-07-2024 ambulatory DOUGLAS WILL Not Available Start: 12-01-2024 End: 12-01-2024 Refill Douglas Will MD Work Phone: [facility] Comment on above: CAD in [place] artery (CMS/HCC) Start: 11-30-2024 End: 11-30-2024 Bamboo flowsheet Cindy Bernal SIMULATION DEVELOPER Work Phone: [facility] Start: 11-30-2024 End: 11-30-2024 Bamboo flowsheet Cindy Bernal NP Work Phone: [facility] Start: 11-30-2024 End: 11-30-2024 Office outpatient visit 15 minutes Cindy Gabe SIMULATION DEVELOPER Work Phone: [facility] Comment on above: Open wound of left l ower leg, subsequent encounter (Primary Dx) Start: 11-30-2024 End: 11-30-2024 ambulatory CINDY BERNAL Not Available Start: 11-29-2024 End: 11-29-2024 ambulatory [facility] Work Phone: Start: 11-29-2024 End: 11-29-2024 Patient encounter procedure [facility] Work Phone: Start: 11-25-2024 End: 11-28-2024 Refill Rhoda Higgins MD Work Phone: [facility] Start: 10-26-2024 End: 10-26-2024 Refill Rhoda Higgins MD Work Phone: [facility] Comment on above: 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); Penetrating ulcer of aorta (CMS-HCC); Intramural hematoma of thoracic aorta (CMS-HCC); Pulmonary embolism, unspecified chronicity, unspecified pulmonary embolism type, unspecified whether acute cor pulmonale present (CMS-HCC) Start: 10-10-2024 End: 10-10-2024 Refill Douglas Will MD Work Phone: [facility] Comment on above: 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 Start: 07-29-2024 End: 07-29-2024 ambulatory DOUGLAS [facility] Start: 07-21-2024 End: 07-21-2024 ambulatory BRIGHT GUERRIER [facility] Start: 07-13-2024 End: 07-13-2024 ambulatory RHODA HIGGINS [facility] Start: 07-08-2024 End: 07-08-2024 Clinisync Result Encounter Generic External Data Provider [facility] External Department Unsolicited Start: 07-08-2024 End: 07-08-2024 Clinisync Result Encounter Generic External Data Provider [facility] External Department Unsolicited Start: 07-08-2024 End: 07-08-2024 ambulatory DOUGLAS WILL [facility] Start: 07-08-2024 End: 07-08-2024 Subsequent hospital visit by physician Douglas Will MD Work Phone: [facility] Comment on above: Lightheaded; Dizziness; SOB (shortness of breath); Chest discomfort; Dissection of aorta, unspecified portion of aorta (HCC); ASHD (arteriosclerotic heart disease); S/P angioplasty with stent; Chronic anticoagulation; Dysautonomia orthostatic hypotension syndrome; Chronic diastolic congestive heart failure (HCC); History of DVT (deep vein thrombosis); Cardiac pacemaker in situ; Essential hypertension; History of chest pain; PAF (paroxysmal atrial fibrillation) ([facility]) Start: 07-05-2024 End: 07-05-2024 ambulatory CAPRI MATTHEWS [facility] Start: 06-29-2024 End: 06-29-2024 ambulatory DOUGLAS [facility] Start: 06-16-2024 End: 06-16-[address] [facility] Start: 06-16-2024 Encounter for other specified special examinations [facility] Start: 06-06-2024 End: 06-06-2024 Orders Only Douglas Will MD Work Phone: [facility] Comment on above: Vertigo (Primary Dx) ; Restless leg syndrome Start: 06-03-2024 End: 06-03-2024 Bamboo flowsheet Lurdes Toney PA Work Phone: [facility] Start: 06-03-2024 End: 06-03-2024 Bamboo flowsheet Lurdes Toney PA Work Phone: [facility] Start: 06-03-2024 End: 06-03-2024 Office outpatient visit 15 minutes Lurdes Toney PA Work Phone: [facility] Comment on above: Allergic reaction to drug, subsequent encounter (Primary Dx); Encounter for removal of sutures Start: 06-03-2024 End: 06-03-2024 ambulatory LURDES TONEY Not Available Start: 05-30-2024 End: 05-30-2024 ambulatory [facility] Ambulatory Start: 05-30-2024 End: 05-30-2024 Office outpatient visit 25 minutes Nolan Julio MD MPH Work Phone: [facility] Comment on above: Dysphagia, unspecifi ed type (Primary Dx); Achalasia of cardia Start: 05-24-2024 End: 05-24-2024 Bamboo flowsheet Lurdes Toney PA Work Phone: [facility] Start: 05-24-2024 End: 05-24-2024 Bamboo flowsheet Lurdes Toney PA Work Phone: [facility] Start: 05-24-2024 End: 05-24-2024 Patient encounter procedure Lurdes Toney PA Work Phone: [facility] Comment on above: Rash and other nonsp ecific skin eruption (Primary Dx) Start: 05-24-2024 End: 05-24-2024 ambulatory LURDES TONEY Not Available Start: 04-11-2024 End: 04-11-2024 Office outpatient visit 25 minutes Nolan Julio MD MPH Work Phone: [facility] Comment on above: Achalasia of cardia (Primary Dx); Dysphagia, unspecified type Start: 04-11-2024 End: 04-11-2024 ambulatory [facility] Ambulatory Start: 04-07-2024 End: 04-07-2024 Willi Will MD Work Phone: [facility] Start: 04-07-2024 End: 04-07-2024 Willi flowsmary Will MD Work Phone: [facility] Start: 04-07-2024 End: 04-07-2024 Office outpatient visit 25 minutes Douglas Will MD Work Phone: [facility] Comment on above: Severe protein-calor ie malnutrition (CMS/HCC) (Primary Dx); Diarrhea, unspecified type; Lumbar spondylosis; Dysphasia Start: 03-28-2024 End: 04-01-2024 Evaluation and management of inpatient [facility] Work Phone: Comment on above: Dysphagia, unspecifi ed type (Primary Dx); Gastroesophageal reflux disease, unspecified whether esophagitis present; Lightheadedness; Status post insertion of percutaneous endoscopic gastrostomy (PEG) tube (Multi) Start: 03-28-2024 End: 03-28-2024 Office outpatient visit 40 minutes Nolan Julio MD MPH Work Phone: [facility] Comment on above: Bariatric surgery st [facility]; Preoperative clearance; Gastroesophageal reflux disease, unspecified whether esophagitis present Start: 03-28-2024 End: 03-28-2024 Preoperative state Nolan Julio MD MPH Work Phone: [facility] Work Phone: Start: 03-28-2024 End: 03-28-2024 ambulatory [facility] Ambulatory Start: 03-08-2024 End: 03-08-2024 ambulatory [facility] Start: 03-08-2024 Encounter for other specified special examinations [facility] Start: 01-28-2024 ambulatory Lou Lacy Facility:[facility] Start: 01-20-2024 End: 01-20-2024 Evaluation and management of inpatient DOUGLAS WILL [facility] Start: 01-14-2024 ambulatory RHODA HIGGINS [facility] Start: 12-17-2023 End: 12-19-2023 Subsequent hospital visit by physician Sophia Simon Dr Room 2 [facility] Radiology Comment on above: History of chest ashley n; ASHD (arteriosclerotic heart disease); S/P angioplasty with stent; PAF (paroxysmal atrial fibrillation) ([facility]); Dysautonomia orthostatic hypotension syndrome; Chronic diastolic congestive heart failure ([facility]); History of DVT (deep vein thrombosis); Cardiac pacemaker in situ; Essential hypertension Start: 12-14-2023 End: 12-14-2023 ambulatory EMMA ZABALA [facility] Amb[facility] Start: 11-24-2023 End: 11-24-2023 ambulatory UNKNOWN PROVIDER Facility:[facility] Start: 06-19-2023 End: 06-20-2023 ambulatory Lou Lacy Facility:[facility] [place] Start: 06-19-2023 End: 06-19-2023 Patient encounter procedure Lou Lacy [facility] Start: 06-11-2023 End: 06-11-2023 ambulatory Inessa Navas Other [employer] Other Start: 06-11-2023 Office outpatient ne w 20 minutes Inessa Navas [facility] Start: 04-30-2023 End: 04-30-2023 Subsequent hospital visit by physician Henna Bravo [facility] Medication Management 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-Emergency Room Work Phone: Start: 02-10-2023 End: 02-10-2023 Subsequent hospital visit by physician Nighat Bazzi [facility] Work Phone: [facility] Medication Management Comment on above: retirement current us e of 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 (Primary Dx); History of pulmonary embolus (PE); MTHFR mutation Start: 02-10-2023 End: 02-10-2023 Emergency department patient visit Daniel Araiza MD Work Phone: [facility] ED Comment on above: Skin tear of left el bow without complication, initial encounter (Primary Dx) Start: 02-03-2023 End: 02-03-2023 Subsequent hospital visit by physician Nighat aBzzi [facility] Work Phone: [facility] Medication Management Comment on above: retirement current us e of 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 (Primary Dx); History of pulmonary embolus (PE); MTHFR mutation Start: 02-02-2023 End: 02-03-2023 ambulatory Isauro ARCHULETA Facility:[facility] Start: 02-02-2023 End: 02-02-2023 Patient encounter procedure Isauro ARCHULETA [facility] Start: 01-19-2023 End: 01-19-2023 Subsequent hospital visit by physician Nighat Bazzi [facility] Work Phone: [facility] Medication Management 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); History of pulmonary embolus (PE); MTHFR mutation Start: 12-23-2022 End: 12-23-2022 Subsequent hospital visit by physician Henna Bravo [facility] Medication Management 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); Coronary artery disease, unspecified vessel or lesion type, unspecified whether angina present, unspecified whether [place] or transplanted heart; History of pulmonary embolus (PE); MTHFR mutation Start: 12-10-2022 End: 12-10-2022 ambulatory COOPER DECAPUA Facility:[facility] Start: 12-10-2022 End: 12-10-2022 Patient encounter procedure Nguyễn Jean MD Work Phone: Orthopaedics Comment on above: 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) Start: 12-10-2022 End: 12-10-2022 Subsequent hospital visit by physician [facility] Work Phone: Radiology Comment on above: S/P revision of tota l knee, left [Z96.652] Start: 12-08-2022 End: 12-08-2022 Subsequent hospital visit by physician Shy Osuna [facility] [employer] Medication Management 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); History of pulmonary embolus (PE); MTHFR mutation Start: 12-01-2022 End: 12-02-2022 ambulatory Isauro ARCHULETA Facility:[facility] Start: 12-01-2022 End: 12-01-2022 Patient encounter procedure Isauro ARCHULETA [facility] Start: 11-24-2022 End: 11-26-2022 Subsequent hospital visit by physician Nighat Bazzi [facility] Work Phone: [facility] [email or web address] Medication Management 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); History of pulmonary embolus (PE); MTHFR mutation History of DVT (deep vein thrombosis); Pain of left calf Start: 07-02-2022 End: 07-02-2022 Patient encounter procedure Nguyễn Jean MD Work Phone: Orthopaedics Comment on above: Numbness and tinglin g of right leg (Primary Dx); Status post revision of total replacement of right knee Start: 07-02-2022 End: 07-02-2022 Subsequent hospital visit by physician [facility] [place] Work Phone: Radiology Comment on above: Infection associated with internal right knee prosthesis, 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] Start: 06-30-2022 End: 06-30-2022 Subsequent hospital visit by physician Nighat Bazzi [facility] Work Phone: [facility] Medication Management 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); History of pulmonary embolus (PE); MTHFR mutation Start: 06-13-2022 End: 06-13-2022 Emergency department patient visit [facility] Facility:[facility] Start: 06-12-2022 End: 06-12-2022 Subsequent hospital visit by physician Shy Osuna [facility] Medication Management Comment on above: retirement current us e of 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 (Primary Dx); History of pulmonary embolus (PE); MTHFR mutation Start: 06-04-2022 Telephone encounter Shanelle Cid MD Work Phone: Infectious Disease Comment on above: Appointment (manoj greenberg ) Start: 06-04-2022 End: 06-04-2022 Subsequent hospital visit by physician Shy Osuna [facility] Medication Management Comment on above: retirement current us e of 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 (Primary Dx); History of pulmonary embolus (PE); MTHFR mutation Start: 06-03-2022 Patient Update Shanelle Cdi MD Work Phone: Infectious Disease Comment on above: Hold CoPat; Lab Orde rs Start: 05-28-2022 Telephone encounter Shanelle Cid MD Work Phone: Infectious Disease Comment on above: Patient Update Start: 05-22-2022 Refill Cooperphillip james PA-C Work Phone: Orthopaedics Comment on above: Refill Request Start: 05-21-2022 End: 05-21-2022 Patient encounter procedure Nguyễn Jean MD Work Phone: Orthopaedics Comment on above: 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) Start: 05-21-2022 End: 05-21-2022 Subsequent hospital visit by physician [facility] Work Phone: Radiology Comment on above: Infection associated with internal right knee prosthesis, 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] Start: 05-19-2022 ambulatory Shanelle Cid MD Work Phone: Infectious Disease Comment on above: Outside Labs Results (Copat/) Start: 05-19-2022 End: 05-19-2022 Subsequent hospital visit by physician Douglas Will MD Work Phone: [facility] Start: 05-15-2022 End: 05-15-2022 Subsequent hospital visit by physician Shy Osuna [facility] Medication Management 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); History of pulmonary embolus (PE); MTHFR mutation Start: 05-09-2022 Orders Only Roe Thompson RN Infecti ous Disease Comment on above: Infection of prosthe tic joint, subsequent encounter (Primary Dx) Start: 05-08-2022 ambulatory Shanelle Cid MD Work Phone: Infectious Disease Comment on above: [employer] Agency Start: 05-05-2022 ambulatory Shanelle Cid MD Work Phone: [facility] Comment on above: [employer]Pat Start Start: 04-30-2022 Telephone encounter Financial Navigator Jose G Work Phone: Hematology/Oncology Comment on above: Benefits Investigati on Start: 04-30-2022 End: 04-30-2022 ambulatory Chair 12 Joann Work Phone: Hematology/Oncology Comment on above: Iron deficiency anem ia, unspecified iron deficiency anemia type (Primary Dx) Start: 04-29-2022 Telephone encounter Nguyễn mcclendon MD Work Phone: Orthopaedics Comment on above: Patient Question (Hemal arambula is wondering if she needs to have a covid test before her procedure on the , however there is no covid order put through so the call center called to double check but patient hung up on both of us, needs a call back to inform her if she needs a covid test or not) Start: 04-28-2022 End: 04-28-2022 ambulatory Chair 10 Joann Work Phone: Hematology/Oncology Comment on above: Iron deficiency anem ia, unspecified iron deficiency anemia type (Primary Dx) Start: 04-25-2022 Telephone encounter Shelli Avalos ARTIFICIAL TEETH INSPECTOR H ematology/Oncology Comment on above: Social Work Services Start: 04-24-2022 End: 04-24-2022 ambulatory Chair Laura David Work Phone: Hematology/Oncology Comment on above: Preop examination; Infection associated with internal right knee prosthesis, subsequent encounter; Iron deficiency anemia, unspecified iron deficiency anemia type Start: 04-24-2022 End: 04-24-2022 Preprocedural examination done Chair Joann Work Phone: Hematology/Oncology Start: 04-14-2022 End: 04-14-2022 Patient encounter procedure Isauro ARCHULETA [facility] Joann Start: 04-02-2022 End: 04-03-2022 Subsequent hospital visit by physician Karsten Dyer MD Work Phone: [facility] SURG Comment on above: PAF (paroxysmal atri al fibrillation) (HCC); Essential hypertension Start: 04-02-2022 End: 04-02-2022 Subsequent hospital visit by physician Shy Osuna [facility] Medication Management 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); History of pulmonary embolus (PE); MTHFR mutation Start: 03-31-2022 End: 03-31-2022 Patient encounter procedure Nguyễn Jean MD Work Phone: Orthopaedics Comment on above: S/P revision of tota l knee, right (Primary Dx) Start: 02-12-2022 End: 02-13-2022 ambulatory DOUGLAS WILL [facility] Start: 02-11-2022 End: 02-11-2022 Subsequent hospital visit by physician Nighat Bazzi [facility] Work Phone: [facility] Medication Management 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); History of pulmonary embolus (PE); MTHFR mutation Start: 02-10-2022 Orders Only Cooper james PA-C Work Phone: Orthopaedics Comment on above: Knee pain, unspecifi ed chronicity, unspecified laterality (Primary Dx) Start: 02-06-2022 End: 02-06-2022 Patient encounter procedure Jorge Wilson MD Work Phone: [facility] [place] Comment on above: Spinal stenosis of l umbar region, unspecified whether neurogenic claudication present; Lumbar radiculopathy, chronic; Spinal stenosis of lumbar region with neurogenic claudication Start: 01-29-2022 End: 01-29-2022 Subsequent hospital visit by physician Nighat Bazzi [facility] Work Phone: [facility] 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); History of pulmonary embolus (PE); MTHFR mutation Start: 01-28-2022 End: 01-28-2022 Patient encounter procedure Isauro ARCHULETA [facility] Start: 01-22-2022 Office outpatient vi sit 40 minutes Epi Andrews Work Phone: [facility] [address] [facility] Work Phone: Start: 01-22-2022 Patient encounter procedure Epi Andrews Work Phone: BL-Tizvmsb-Jvjqzsu [facility] [address] [place] Work Phone: Start: 01-14-2022 End: 01-15-[address] DOUGLAS WILL Facility:[facility] Start: 01-01-2022 End: 01-01-2022 Subsequent hospital visit by physician Nighat Bazzi [facility] Work Phone: [facility] 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); History of pulmonary embolus (PE); MTHFR mutation Start: 12-31-2021 End: 12-31-2021 Patient encounter procedure MD Douglas Will Work Phone: [facility] [place] Start: 12-30-2021 Telephone encounter Ana Maria Amato DO Work Phone: [facility] [place] Comment on above: Results Start: 12-30-2021 ambulatory DOUGLAS WILL Facility :[facility] Start: 12-30-2021 End: 12-30-2021 Subsequent hospital visit by physician [facility] Work Phone: [facility] Radiology General Comment on above: Spinal stenosis of l umbar region, unspecified whether neurogenic claudication present [M48.061] Spinal stenosis of l umbar region with neurogenic claudication [M48.062] Start: 12-30-2021 End: 12-30-2021 Patient encounter procedure Ana Maria Amato DO Work Phone: [facility] [place] Comment on above: Spinal stenosis of l umbar region, unspecified whether neurogenic claudication present (Primary Dx); Lumbar radiculopathy, chronic; Pain in left wrist; Spinal stenosis of lumbar region with neurogenic claudication Start: 12-23-2021 End: 12-23-2021 Patient encounter procedure Isauro ARCHULETA [facility] Start: 11-29-2021 AUDIT Epi reid Work Phone: [place]-Sjsijuvkrtjiyn-Zsd [facility] Perioperative [facility] Work Phone: Start: 11-27-2021 End: 11-27-2021 Patient encounter procedure [facility] Work Phone: Orthopaedics Comment on above: Acute pain of right knee (Primary Dx) Start: 11-27-2021 End: 11-27-2021 Patient encounter procedure Nguyễn Jean MD Work Phone: Orthopaedics Comment on above: 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) Start: 11-27-2021 End: 11-27-2021 Subsequent hospital visit by physician [facility] Work Phone: Radiology Comment on above: 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 [Z96.659] Start: 11-25-2021 End: 11-25-2021 Subsequent hospital visit by physician Shy Osuna [facility] [place] Medication Management 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); History of pulmonary embolus (PE); MTHFR mutation Start: 07-17-2021 ambulatory DOUGLAS [facility] pital Start: 07-09-2021 End: 07-09-2021 Patient encounter procedure MD Douglas Will Work Phone: [facility]-Pacemaker Check Start: 07-08-2021 End: 07-08-2021 Subsequent hospital visit by physician Shy Osuna [facility] [place] Medication Management 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); History of pulmonary embolus (PE); MTHFR mutation Start: 07-04-2021 End: 07-04-2021 Subsequent hospital visit by physician [facility] Work Phone: Radiology Comment on above: S/P revision of tota l knee, right [Z96.651] Start: 07-03-2021 Office outpatient vi sit 15 minutes Epi Andrews Work Phone: AM-Fsulzud-[facility] [address] [place] Work Phone: Start: 07-01-2021 End: 07-01-2021 Subsequent hospital visit by physician Epi Andrews Work Phone: [facility] Start: 05-15-2021 Patient encounter procedure Epi Andrews Work Phone: [facility] Work Phone: Start: 05-09-2021 End: 05-09-2021 Subsequent hospital visit by physician Shy Osuna [facility] [place] Medication Management Comment on above: retirement current us e of 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 (Primary Dx); History of pulmonary embolus (PE); MTHFR mutation Start: 03-24-2021 Chart Update Epi reid Work Phone: GC-Xvvxfqwvwbahfs-[place] Work Phone: Start: 03-20-2021 Current tobacco non- user cad cap copd pv dm Epi Andrews Work Phone: FR-Vuwiypvgpecwzrjr-Fv lwell [address] [facility] Work Phone: Start: 03-19-2021 End: 03-19-2021 Subsequent hospital visit by physician Shy Osuna [facility] Medication Management Start: 03-18-2021 End: 03-19-[address] DOUGLAS WILL Facility:[facility] Start: 03-14-2021 End: 03-15-[address] DOUGLAS WILL Facility:[facility] Start: 03-05-2021 Office outpatient vi sit 25 minutes Epi Andrews Work Phone: CR-Pyugvomrqmxebt-Jjkf man Voice Work Phone: Start: 03-05-2021 Patient encounter procedure Epi Andrews Work Phone: NN-Dppuoikkweffxg-Txfh [place] Work Phone: Start: 02-20-2021 End: 02-20-2021 Subsequent hospital visit by physician Henna Barvo [facility] Medication Management Comment on above: retirement current us e of 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 (Primary Dx); Coronary artery disease, unspecified vessel or lesion type, unspecified whether angina present, unspecified whether [place] or transplanted heart; History of pulmonary embolus (PE); MTHFR mutation Start: 02-19-2021 AUDIT Epi reid Work Phone: [facility] Work Phone: Start: 02-17-2021 Chart Update Epi reid Work Phone: GS-Tfemmorhzvpczx-[place] Work Phone: Start: 02-13-2021 Office outpatient vi sit 25 minutes Epi Andrews Work Phone: QZ-Gqprpmknqiagwj-[place] Work Phone: Start: 02-13-2021 Patient encounter procedure Epi Andrews Work Phone: KE-Ycyhsbzxtwqbeq-[place] Work Phone: Start: 01-28-2021 End: 01-28-2021 Subsequent hospital visit by physician Nighat Bazzi [facility] Work Phone: [facility] 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); History of pulmonary embolus (PE); MTHFR mutation Start: 01-02-2021 Office outpatient vi sit 15 minutes Epi Andrews Work Phone: ID-Teisyxbejnflcw-Hnfn [place] Work Phone: Start: 12-17-2020 End: 12-17-2020 Subsequent hospital visit by physician Shy Osuna [facility] Comment on above: MTHFR mutation (HCC) ; retirement 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; History of pulmonary embolus (PE) Start: 12-14-2020 End: 12-14-2020 Subsequent hospital visit by physician [facility] Work Phone: Radiology Comment on above: Pain [R52] Start: 07-11-2020 End: 07-11-2020 Subsequent hospital visit by physician Nighat Bazzi Work Phone: [facility] Comment on above: MTHFR mutation (HCC) ; retirement 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; History of pulmonary embolus (PE) Start: 06-25-2020 End: 06-25-2020 Subsequent hospital visit by physician Henna Bravo [facility] Comment on above: MTHFR mutation (HCC) ; retirement 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; Coronary artery disease involving [place] coronary artery of [place] heart without angina pectoris; History of pulmonary embolus (PE) Start: 05-28-2020 End: 05-28-2020 Subsequent hospital visit by physician Nighat Bazzi Work Phone: [facility] Comment on above: MTHFR mutation (HCC) ; retirement 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; History of pulmonary embolus (PE) Start: 04-17-2020 End: 04-17-2020 Emergency department patient visit Epi Andrews [facility] ED Comment on above: Dyspnea on exertion (Primary Dx); Tachycardia Start: 04-12-2020 End: 04-13-2020 Patient encounter procedure EPI ANDREWS Facility:[facility] Start: 04-03-2020 End: 04-06-2020 Evaluation and management of inpatient Toni Moore Work Phone: [facility] Comment on above: Dysautonomia orthost atic hypotension syndrome (HCC); ASHD (arteriosclerotic heart disease); Chronic diastolic congestive heart failure (HCC); History of DVT (deep vein thrombosis); Cardiac pacemaker in situ Start: 03-29-2020 End: 03-29-2020 Subsequent hospital visit by physician [facility] Work Phone: Radiology Comment on above: Acute pain of left k nee [M25.562] Start: 03-15-2020 End: 03-16-2020 Patient encounter procedure NOAH GARCIA Facility:[facility] Start: 02-14-2020 End: 02-14-2020 Subsequent hospital visit by physician Nighat Bazzi Work Phone: [facility] Comment on above: MTHFR mutation (HCC) ; 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; History of pulmonary embolus (PE) Start: 01-25-2020 End: 01-25-2020 [facility] Comment on above: MTHFR mutation (HCC) ; retirement 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; History of pulmonary embolus (PE) Start: 11-07-2019 End: 11-07-2019 Subsequent hospital visit by physician Shy Osuna [facility] Comment on above: MTHFR mutation (HCC) ; retirement 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; History of pulmonary embolus (PE) Start: 07-13-2019 End: 07-13-2019 Subsequent [facility] Comment on above: MTHFR mutation (HCC) ; 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; History of pulmonary embolus (PE) Start: 06-27-2019 End: 06-27-2019 Subsequent hospital visit by physician [facility]na [facility] Comment on above: MTHFR mutation (HCC) ; retirement 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; Coronary artery disease involving [place] coronary artery of [place] heart without angina pectoris; History of pulmonary embolus (PE) Start: 06-10-2019 End: 06-10-2019 Subsequent hospital visit by physician Sophia Tejeda Table Study Room [facility] Comment on above: Essential hypertensi on; ASHD (arteriosclerotic heart disease); Chronic diastolic congestive heart failure (HCC); History of DVT (deep vein thrombosis); Cardiac pacemaker in situ Start: 05-30-2019 End: 05-30-2019 Subsequent hospital visit by physician Nighat Bazzi Work Phone: [facility]ication Management Comment on above: MTHFR mutation (HCC) ; 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; History of pulmonary embolus (PE) Start: 04-26-2019 End: 04-26-2019 Subsequent hospital visit by physician Henna Bravo [facility] Comment on above: MTHFR mutation (HCC) ; 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; Coronary artery disease with stable angina pectoris, unspecified vessel or lesion type, unspecified whether [place] or transplanted heart (HCC); History of pulmonary embolus (PE) Start: 04-05-2019 End: 04-05-2019 Subsequent hospital visit by physician Nighat Bazzi Work Phone: [facility] Comment on above: MTHFR mutation (HCC) ; retirement 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; History of pulmonary embolus (PE) Start: 03-12-2017 End: 03-13-2017 [facility] Start: 03-12-2017 End: 03-12-2017 Ambulatory REYNOLD S [facility] Start: 03-05-2017 End: 03-06-2017 [facility] Start: 03-04-2017 End: 03-05-2017 [facility] Start: 07-10-2014 End: 06-14-2018 Patient encounter status Shy Osuna [facility] Work Phone: Preoperative state Epi Randle Work Phone: OW-Avfdcxwhrokwaf-Sdf for Perioperative Med Work Phone: Procedures Date Procedure Procedure Detail Performing Clinician Start: 05-16-2025 Blood count complete automated Rhoda wyatt MD Work Phone: Start: 05-09-2025 Comprehensive metabolic panel Rhoda hawkins MD Work Phone: Start: 05-02-2025 Comprehensive metabolic panel Rhoda hawkins MD Work Phone: Start: 04-26-2025 Echo transthorc r-t 2d w/wo m-mode rec f-up/lmtd Kendra Herrera MD Work Phone: Start: 04-26-2025 Ecg routine ecg w/least 12 lds w/i&r Kendra Herrera MD Work Phone: Start: 04-26-2025 ELECTROPHYSIOLOGY PROCEDURE Kendra Herrera MD Work Phone: Start: 04-26-2025 Percutaneous coronary intervention Lana Allen DO Work Phone: Start: 04-26-2025 End: 04-26-2025 Coagulation time activated Kendra Herrera MD Work Phone: Start: 04-26-2025 Blood typing serologic abo Kendra Herrera MD Work Phone: Start: 04-26-2025 Chloride [Moles/volume] in Serum or Plasma Kendra Herrera MD Work Phone: Start: 04-26-2025 CREATININE W/GFR POINT OF CARE Kendra Herrera MD Work Phone: Start: 04-26-2025 Gluc bld gluc mntr dev cleared fda spec home use Kendra Herrera MD Work Phone: Start: 04-26-2025 Potassium [Moles/volume] in Serum or Plasma Kendra Herrera MD Work Phone: Start: 04-26-2025 Sodium [Moles/volume] in Serum or Plasma Kendra Herrera MD Work Phone: Start: 04-26-2025 Ecg routine ecg w/least 12 lds w/i&r Kendra Herrera MD Work Phone: Start: 03-31-2025 Complete blood count with white cell differential, automated Douglas Will MD Work Phone: Start: 03-24-2025 Prothrombin time Nyasia L Carson [employer]ARM FACILITY MANAGER - BIOGEOGRAPHER Work Phone: Start: 03-23-2025 Prothrombin time Nyasia L Carson FARM FACILITY MANAGER - BIOGEOGRAPHER Work Phone: Start: 03-22-2025 Rhythm ecg 1-3 leads w/interpretation & report Unknown Provider Result Start: 03-22-2025 BLOOD GAS, ARTERIAL Larisa Reardon MD Work Phone: Start: 03-22-2025 Echo tthrc r-t 2d w/wom-mode compl spec&colr d Nyasia L Carson FARM FACILITY MANAGER - BIOGEOGRAPHER Work Phone: Start: 03-22-2025 Prothrombin time Nyasia L Carson FARM FACILITY MANAGER - BIOGEOGRAPHER Work Phone: Start: 03-22-2025 Culture bacterial quanttative colony count urine Analy Johnson [employer]ARM FACILITY MANAGER - BIOGEOGRAPHER Work Phone: Start: 03-22-2025 MHPT CULT,URINE Generic External Data Provider Start: 03-21-2025 Speech and language therapy regime Larisa Reardon MD Work Phone: Start: 03-21-2025 Intermittent pulse oximetry Larisa Reardon MD Work Phone: Start: 03-21-2025 Natriuretic peptide Milton Collins PA-C Work Phone: Start: 03-21-2025 Radiologic exam chest single view Milton Collins PA-C Work Phone: Start: 03-21-2025 End: 03-21-2025 Ct head/brain w/o contrast material Milton Collins PA-C Work Phone: Start: 03-21-2025 Ct cervical spine w/o contrast material Milton Collins PA-C Work Phone: Start: 03-21-2025 End: 03-22-2025 Ecg routine ecg w/least 12 lds i&r only Milton Collins PA-C Work Phone: Start: 03-21-2025 Comprehensive metabolic panel Milton Rebolledo PA-C Work Phone: Start: 03-21-2025 Urinalysis microscopic only Milton domínguez PA-C Work Phone: Start: 03-21-2025 Urnls dip stick/tablet rgnt auto w/o microscopy Larisa Reardon MD Work Phone: Start: 03-20-2025 Radiologic examination tibia & fibula 2 views Ashish Carpio MD Work Phone: Start: 03-20-2025 Assay of troponin quantitative Ashish rizvi MD Work Phone: Start: 03-20-2025 Radiologic exam chest single view Ashish Carpio MD Work Phone: Start: 03-20-2025 COVID-19, RAPID Ashish Carpio MD Work Phone: Start: 03-20-2025 Comprehensive metabolic panel Ashish bear MD Work Phone: Start: 03-20-2025 Ecg routine ecg w/least 12 lds w/i&r Ashish Carpio MD Work Phone: Start: 02-21-2025 Radiologic examination knee 1/2 views Reyna RECIO Work Phone: Start: 02-16-2025 Comprehensive metabolic panel Rhoda hawkins MD Work Phone: Start: 02-16-2025 MHPT CBC WITH DIFF Generic External Data Provider Start: 02-13-2025 ALL CBC WITH AUTO DIFF Generic External Data Provider Start: 02-13-2025 Blood count complete automated Toni chinchilla MD Work Phone: Start: 01-24-2025 Radex elbow complete minimum 3 views Douglas Will MD Work Phone: Start: 01-24-2025 CT SPINE CERVICAL W/O CONTRAST Douglas delgado MD Work Phone: Start: 01-24-2025 Ct lumbar spine w/o contrast material Douglas Will MD Work Phone: Start: 01-24-2025 CT Pelvis bones WO contrast Douglas Will MD Work Phone: Start: 01-24-2025 End: 01-24-2025 Radex shoulder complete minimum 2 views Douglas Will MD Work Phone: Start: 01-24-2025 RT PULMONARY FUNCTION TEST Douglas Will MD Work Phone: Start: 01-24-2025 ALL HEMOGLOBIN Douglas Will MD Work Phone: Start: 12-23-2024 Complete blood count with white cell differential, automated Douglas Will MD Work Phone: Start: 12-08-2024 Fibrin dgradj products d-dimer quantitative Douglas Will MD Work Phone: Start: 07-21-2024 Follow-up visit Follow-up BRIGHT GUERRIER Start: 07-08-2024 ALL CBC WITH AUTO DIFF Generic External Data Provider Start: 07-08-2024 Basic metabolic panel calcium total Muriel Deal PA-C Work Phone: Start: 05-24-2024 SKIN / NAIL BIOPSY Lurdes RECIO Work Phone: Start: 04-01-2024 Radiologic exam esophagus single contrast study Debrala Loren DO Work Phone: Start: 04-01-2024 Renal function panel Jesse Oliva MD Work Phone: Start: 03-31-2024 Esophagogastroduodenoscopy submucosal injection Rock Alanis MD Work Phone: Start: 03-31-2024 Blood typing serologic rh (d) Savanna vance MD Work Phone: Start: 03-31-2024 Renal function panel Jesse Oliva MD Work Phone: Start: 03-30-2024 Renal function panel Jesse Oliva MD Work Phone: Start: 03-29-2024 Radiologic exam swallow function contrast study Jesse Oliva MD Work Phone: Start: 03-29-2024 Renal function panel Jesse Oliva MD Work Phone: Start: 03-28-2024 Glucose quantitative blood xcpt reagent strip Donnie Mcnulty'Geeta LYNN Work Phone: Start: 03-28-2024 Ecg routine ecg w/least 12 lds trcg only w/o i&r Jesse Oliva MD Work Phone: Start: 03-28-2024 Assay of troponin quantitative Malorie ro MD Work Phone: Start: 03-28-2024 Radiologic exam chest single view Malorie Maldonado MD Work Phone: Start: 03-28-2024 Comprehensive metabolic panel Malorie richardson MD Work Phone: Start: 03-28-2024 Troponin I.cardiac panel - Serum or Plasma by High sensitivity method Malorie Maldonado MD Work Phone: Start: 03-28-2024 Ecg routine ecg w/least 12 lds trcg only w/o i&r Td Hutchison MD Work Phone: Start: 03-17-2024 Thyrotropin [Units/volume] in Serum or Plasma Nolan Julio MD MPH Work Phone: Start: 12-21-2023 Adult depression screening assessment Lucie Kirkpatrick Start: 12-17-2023 Radiologic exam chest 2 views Muriel Tirado PA-C Work Phone: Start: 12-14-2023 Follow-up visit Follow-up [facility] Start: 04-30-2023 Prothrombin time Historical Provider Start: 02-10-2023 Prothrombin time Historical Provider Start: 02-03-2023 Prothrombin time Historical Provider Start: 01-19-2023 Prothrombin time Historical Provider Start: 12-23-2022 Prothrombin time Historical Provider Start: 12-10-2022 Radiologic examination knee 3 views Cooper D Decapua PA-C Work Phone: Start: 12-08-2022 Prothrombin time Historical Provider Start: 11-24-2022 Dup-scan xtr veins complete bilateral study Muriel Deal PA-C Work Phone: Start: 11-24-2022 Prothrombin time Historical Provider Start: 07-02-2022 Radiologic examination knee 3 views Cooper D Decapua PA-C Work Phone: Start: 06-30-2022 Prothrombin time Historical Provider Start: 06-12-2022 Prothrombin time Historical Provider Start: 06-04-2022 Prothrombin time Historical Provider Start: 05-21-2022 Radiologic examination knee 3 views Cooper D Decapua PA-C Work Phone: Start: 05-19-2022 CBC + DIFF Shanelle Cid MD Work Phone: Start: 05-19-2022 Comprehensive metabolic 2000 panel - Serum or Plasma Shanelle Cid MD Work Phone: Start: 05-19-2022 Creatinine blood Shanelle Cid MD Work Phone: Start: 05-19-2022 Drug screen quantitative vancomycin Shanelle Cid MD Work Phone: Start: 05-19-2022 VANCOMYCIN LEVEL Shanelle Cid MD Work Phone: Start: 05-15-2022 Prothrombin time Historical Provider Start: 04-03-2022 Echo tthrc r-t 2d w/wom-mode compl spec&colr d Analy Starks [facility] Work Phone: Start: 04-03-2022 BASIC METABOLIC PANEL W/ REFLEX TO MG FOR LOW K Analy Starks [facility] Work Phone: Start: 04-03-2022 Lipid panel Analy Starks [facility] Work Phone: Start: 04-03-2022 Prothrombin time Analy Starks [facility] Work Phone: Start: 04-03-2022 Ecg routine ecg w/least 12 lds w/i&r Karsten Dyer MD Work Phone: Start: 04-03-2022 End: 04-03-2022 Ecg routine ecg w/least 12 lds w/i&r Analy Starks [facility] Work Phone: Start: 04-02-2022 Assay of troponin quantitative Analy Starks [facility] Work Phone: Start: 04-02-2022 Radiologic exam chest 2 views Analy Starks [facility] Work Phone: Start: 04-02-2022 Natriuretic peptide Analy Starks [facility] Work Phone: Start: 04-02-2022 Intermittent pulse oximetry Analy sexton [facility] Work Phone: Start: 04-02-2022 End: 04-02-2022 Ecg routine ecg w/least 12 lds i&r only Analy Starks [facility] Work Phone: Start: 04-02-2022 Prothrombin time Historical Provider Start: 03-31-2022 Cell count misc body fluids w/differential count Cooper D Decapua PA-C Work Phone: Start: 03-31-2022 Culture tubercle/oth acid-fast bacilli any isol Cooper D Decapua PA-C Work Phone: Start: 03-31-2022 SYNOVIAL FLUID MANUAL DIFF Cooper D Decap ua PA-C Work Phone: Start: 03-31-2022 Arthrocentesis aspir&/inj major jt/bursa w/o us Cooper D Decapua PA-C Work Phone: Start: 02-11-2022 Prothrombin time Historical Provider Start: 01-29-2022 Prothrombin time Historical Provider Start: 01-01-2022 Prothrombin time Historical Provider Start: 12-31-2021 CT of abdomen with contrast MD Douglas delgado Work Phone: Start: 12-30-2021 Ct lumbar spine w/o contrast material Ana Maria Amato DO Work Phone: Start: 12-30-2021 Radex forearm 2 views Ana Maria Amato DO Work Phone: Start: 11-27-2021 Radiologic examination knee 3 views Cooper D Decapua PA-C Work Phone: Start: 11-25-2021 Prothrombin time Historical Provider Start: 07-08-2021 Prothrombin time Historical Provider Start: 07-04-2021 Radiologic examination knee 3 views Cooper D Decapua PA-C Work Phone: Start: 07-01-2021 C-reactive protein Sissy Savage MD Work Phone: Start: 07-01-2021 Creatinine blood Sissy Savage MD Work Phone: Start: 05-09-2021 Prothrombin time Historical Provider Start: 03-19-2021 Prothrombin time Historical Provider Start: 02-20-2021 Prothrombin time Historical Provider Start: 01-28-2021 Prothrombin time Historical Provider Start: 12-17-2020 Prothrombin time Historical Provider Start: 12-14-2020 Radex hip unilateral with pelvis 2-3 views Juan Carlos Weber MD Work Phone: Start: 07-11-2020 Prothrombin time Historical Provider Start: 06-25-2020 Prothrombin time Historical Provider Start: 05-28-2020 Prothrombin time Historical Provider Start: 04-17-2020 Ct thorax w/contrast material Milton Rebolledo Work Phone: Start: 04-17-2020 Assay of troponin quantitative Milton koch Work Phone: Start: 04-17-2020 Radiologic exam chest single view Milton Collins Work Phone: Start: 04-17-2020 Assay of troponin quantitative Milton koch Work Phone: Start: 04-17-2020 BASIC METABOLIC PANEL W/ REFLEX TO MG FOR LOW K Milton Collins Work Phone: Start: 04-17-2020 Blood count complete auto&auto difrntl wbc Milton Collins Work Phone: Start: 04-17-2020 Natriuretic peptide Milton Collins Work Phone: Start: 04-17-2020 Prothrombin time Milton Collins Work Phone: Start: 04-06-2020 Assay of magnesium Analy Starks Work Phone: Start: 04-06-2020 Basic metabolic panel calcium total Toni Moore Work Phone: Start: 04-06-2020 Blood count complete auto&auto difrntl wbc Toni Moore Work Phone: Start: 04-06-2020 Prothrombin time Toni Moore Work Phone: Start: 04-05-2020 Assay of troponin quantitative Analy Starks Work Phone: Start: 04-05-2020 Ecg routine ecg w/least 12 lds i&r only Toni Moore Work Phone: Start: 04-05-2020 EKG REPORT Hpf Scanning Start: 04-05-2020 Assay of magnesium Analy Starks Work Phone: Start: 04-05-2020 Basic metabolic panel calcium total Toni Moore Work Phone: Start: 04-05-2020 Blood count complete auto&auto difrntl wbc Toni Moore Work Phone: Start: 04-05-2020 Prothrombin time Toni Moore Work Phone: Start: 04-04-2020 Ecg routine ecg w/least 12 lds i&r only Toni Moore Work Phone: Start: 04-04-2020 EKG REPORT Hpf Scanning Start: 04-04-2020 Ecg routine ecg w/least 12 lds i&r only Toni Moore Work Phone: Start: 04-04-2020 EKG REPORT Hpf Scanning Start: 04-04-2020 Basic metabolic panel calcium total Toni Moore Work Phone: Start: 04-04-2020 Blood count complete auto&auto difrntl wbc Toni Moore Work Phone: Start: 04-04-2020 Prothrombin time Toni Moore Work Phone: Start: 04-03-2020 Ecg routine ecg w/least 12 lds i&r only Toni Moore Work Phone: Start: 04-03-2020 EKG REPORT Hpf Scanning Start: 04-03-2020 Ecg routine ecg w/least 12 lds i&r only Toni Moore Work Phone: Start: 04-03-2020 EKG REPORT Hpf Scanning Start: 04-03-2020 Basic metabolic panel calcium total Toni Moore Work Phone: Start: 04-03-2020 Blood count complete auto&auto difrntl wbc Toni Moore Work Phone: Start: 04-03-2020 Prothrombin time Toni Moore Work Phone: Start: 04-03-2020 Ecg routine ecg w/least 12 lds i&r only Toni Moore Work Phone: Start: 04-03-2020 EKG REPORT Hpf Scanning Start: 03-29-2020 Radiologic exam knee complete 4/more views Marvin Messina PA-C Work Phone: Start: 02-14-2020 Prothrombin time Historical Provider Start: 01-25-2020 Prothrombin time Historical Provider Start: 11-07-2019 Prothrombin time Historical Provider Start: 07-13-2019 Prothrombin time Historical Provider Start: 06-27-2019 Prothrombin time Historical Provider Start: 05-30-2019 Prothrombin time Historical Provider Start: 04-26-2019 Prothrombin time Historical Provider Start: 04-05-2019 Prothrombin time Historical Provider Start: 03-12-2017 CBC WITH AUTO DIFFERENTIAL REYNOLD GUNN Start: 03-12-2017 PROTIME-INR REYNOLD GUNN Start: 03-12-2017 Chest x-ray REYNOLD GUNN Start: 03-05-2017 OXYGEN THERAPY REYNOLD GUNN Start: 03-05-2017 TOOL MAINTENANCE WORKER REPORT REYNOLD GUNN Start: 03-05-2017 DISCHARGE PATIENT REYNOLD GUNN Start: 03-05-2017 CBC REYNOLD GUNN Start: 03-05-2017 COMPREHENSIVE METABOLIC PANEL REYNOLD CARDONA Start: 03-05-2017 Chest x-ray REYNOLD GUNN Start: 03-05-2017 INTAKE AND OUTPUT REYNOLD GUNN Start: 03-04-2017 DIET CARDIAC REYNOLD GUNN Start: 03-04-2017 INTAKE AND OUTPUT REYNOLD GUNN Start: 03-04-2017 NOTIFY PHYSICIAN (SPECIFY) REYNOLD GUNN Start: 03-04-2017 NURSING COMMUNICATION REYNOLD GUNN Start: 03-04-2017 OXYGEN THERAPY REYNOLD GUNN Start: 03-04-2017 PLACE INTERMITTENT PNEUMATIC COMPRESSION DEVICE REYNOLD GUNN Start: 03-04-2017 PULSE OXIMETRY SPOT CHECK REYNOLD GUNN Start: 03-04-2017 TELEMETRY MONITORING REYNOLD GUNN Start: 03-04-2017 FULL CODE REYNOLD GUNN Start: 03-04-2017 VITAL SIGNS REYNOLD GUNN Start: 03-04-2017 Chest x-ray 1 view frontal REYNOLD GUNN Start: 03-04-2017 Fluoroscopy up to 1 hour physician/qhp time REYNOLD GUNN Start: 03-04-2017 PATIENT STATUS (FROM ED OR OR/PROCEDURAL) REYNOLD GUNN Start: 03-04-2017 TRANSFER PATIENT REYNOLD GUNN Start: 03-04-2017 PROTIME-INR REYNOLD GUNN Start: 08-06-2016 History of operative procedure on knee Status post knee surgery Cast Indp Work Phone: Start: 12-18-2014 History of placement of stent for coronary artery disease S/P coronary artery stent placement on 03/20/17 Shy Osuna [facility] After-cataract of bilateral eyes Isauro ARCHULETA Appendectomy Isauro 3Scan Arthroplasty of knee Stephani Andrews Work Phone: Comment on above: right knee, 2 replacements, multiple ramona geries; Arthroplasty of knee Isauro ARCHULETA Bilateral mastectomy Stephani Andrews Work Phone: Breast surgery (qualifier value) Isauro ARCHULETA Cardiac pacemaker, d evice (physical object) Isauro ARCHULETA Colonoscopy Epi Mckeon er Work Phone: Colonoscopy Isauro ARCHULETA Esophagogastroduodenoscopy Beck Andrews Work Phone: Excision of tonsil, palatine arch and superior pharyngeal constrictor muscle Isauro ARCHULETA Gallbladder structur e (body structure) Isauro ARCHULETA H/O: artificial joint Colleenf maria a Navas Other H/O: hysterectomy Inessa Navas Other H/O: surgery History of esophagomyotomy Douglas Will MD Work Phone: History of operative procedure on knee 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 Xr [place] Work Phone: History of operative procedure on knee History of right knee joint replacement Reyna RECIO Work Phone: Hysterectomy Epi Mckeon er Work Phone: Hysterectomy Isauro ARCHULETA Intestinal structure (body structure) Isauro ARCHULETA Kidney structure (odell dy structure) Isauro ARCHULETA Ligation of fallopian tube R anamaria KATHE Operation on heart Epi Andrews Work Phone: Partial resection of colon Beck Andrews Work Phone: Post-surgery back pain (finding) Isauro ACRHULETA Repair of esophagus Lou padilla Plan of Treatment Date Care Activity Detail Author Start: 02-10-2033 DTaP,Tdap and Td Vaccines (4 - Td or Tdap) DTaP,Tdap and Td Vaccines (4 - Td or Tdap) [facility] Start: 02-10-2033 DTaP/Tdap/Td vaccine (4 - Td or Tdap) DTaP/Tdap/Td vaccine (4 - Td or Tdap) [facility] Start: 02-10-2033 DTaP/Tdap/Td Vaccines (4 - Td or Tdap) DTaP/Tdap/Td Vaccines (4 - Td or Tdap) [facility] Start: 06-30-2028 DTaP/Tdap/Td vaccine (3 - Td or Tdap) DTaP/Tdap/Td vaccine (3 - Td or Tdap) [facility] Start: 06-30-2028 DTaP/Tdap/Td vaccine (3 - Td) DTaP/Tdap/Td vaccine (3 - Td) [place] Start: 06-22-2028 Urine microalbumin profile [facility] Start: 12-13-2025 Tobacco Screening Tobacco Screening [facility] Start: 12-13-2025 End: 12-13-2025 Patient encounter procedure 12/13/2025 11:00 AM EDT Office Visit [facility] [address] [place] [address] Timothy Penn, DO [address] [place] [address] [facility] Start: 11-15-2025 DIABETES SCREEN DIABETES SCREEN [facility] Start: 11-15-2025 Diabetes Screening Diabetes Screening [facility] Start: 08-22-2025 End: 08-22-2025 Clinical Support 08/22/2025 12:25 AM EST Clinical Support [facility] Part of [address] [phone] pacer remote check [facility] Part of [facility] Comment on above: pacer remote check Start: 07-24-2025 Tobacco Screening Tobacco Screening [facility] Start: 07-06-2025 End: 07-06-2025 Patient encounter procedure 07/06/2025 10:00 AM EST Office Visit [facility] V[facility] Surgery [address] [place] [phone] Rhoda Higgins MD [address], [address] [address] [facility] V[facility] Surgery Start: 07-03-2025 End: 07-03-2025 Patient encounter procedure 07/03/2025 4:00 PM EST Off ice Visit [facility] Part [address] [address] Rhoda Quezada MD [address] [place] [address] labs follow up [facility] Part [facility] Comment on above: labs follow up Start: 06-29-2025 End: 06-29-2025 Patient encounter procedure 06/29/2025 10:00 AM EST Office Visit [facility] Vascular Surgery [address] [place] [phone] Rhoda Higgins MD [address], [address] [address] [facility] V[facility] Surgery Start: 06-12-2025 End: 06-12-2025 Patient encounter procedure [facility] Comment on above: labs follow up Start: 06-06-2025 End: 06-06-2025 Patient encounter procedure 06/06/2025 2:00 PM EDT Off ice Visit [facility] [address] [address] Nyasia Wagner, FARM FACILITY MANAGER - BIOGEOGRAPHER [address] [place] [address], [place] [address] week- [facility] Comment on above: week- Start: 05-29-2025 End: 05-29-2025 Patient encounter procedure 05/29/2025 1:30 PM EDT Off ice Visit [address] [place] [address] Nyasia Wagner, FARM FACILITY MANAGER - BIOGEOGRAPHER [address] [place] [address] 1 month post watchman implant [facility] Comment on above: 1 month post watchman implant Start: 05-24-2025 End: 05-24-2025 Patient encounter procedure 05/24/2025 1:15 PM EDT [facility] [address] [place] [address] Douglas Will MD [address] [place] [address] [facility] Start: 05-23-2025 End: 05-23-2025 Patient encounter procedure 05/23/2025 3:30 PM EDT Off ice Visit [address] [place] [address] Robbie Coats, FARM FACILITY MANAGER - BIOGEOGRAPHER [address] [place] [address] 4 months [facility] Comment on above: 4 months Start: 05-23-2025 Subsequent hospital visit by physician 05/23/2025 2:00 PM EDT Hospital Encounter [facility] [address] [place] [address], [place] [phone] [facility] Start: 05-19-2025 DIABETES SCREEN DIABETES SCREEN [facility] Start: 05-17-2025 End: 05-17-2025 ambulatory [facility] Medication Management Comment on above: Heart Failure NEW Pt Heart Failure NEW Pt - APPT CONFIRMED 05/16/25 Start: 05-16-2025 End: 05-16-2025 Patient encounter procedure 05/16/2025 10:00 AM EDT Appointment [facility] [address] [place] [address] [phone] retacrit/venofer (2 of 2) [facility] Comment on above: retacrit/venofer (2 of 2) Start: 05-06-2025 DIABETES SCREEN DIABETES SCREEN [facility] Start: 05-05-2025 DIABETES SCREEN DIABETES SCREEN [facility] Start: 05-04-2025 End: 05-04-2025 Patient encounter procedure 05/04/2025 3:00 PM EDT Off ice Visit [facility] Part of [address] [phone] Rhoda Quezada MD [address] [place] [address] follow up labs [facility] Part of [facility] Comment on above: follow up labs Start: 05-03-2025 End: 05-03-2025 Patient encounter procedure [facility] Comment on above: Arrived Start: 04-17-2025 COVID-19 Vaccine ( season) COVID-19 Vaccine ( season) [facility] Start: 04-17-2025 DIABETES SCREEN DIABETES SCREEN [facility] Start: 04-17-2025 Influenza vaccination [facility] Start: 04-12-2025 End: 04-12-2025 Patient encounter procedure 04/12/2025 3:00 PM EDT Off ice Visit [facility] Part of [address] [address] Nyasia Wagner, FARM FACILITY MANAGER - BIOGEOGRAPHER [address] [place] [address] [place] [address] Hospital follow up [facility] Part of [facility] Comment on above: Hospital follow up Start: 04-06-2025 End: 04-06-2025 Patient encounter procedure [facility] Comment on above: Arrived Start: 04-03-2025 Screening for osteoporosis Bone Density Scan [facility] Start: 04-01-2025 Creatinine measurement Creatinine Level [facility] Start: 04-01-2025 Diabetes mellitus screening Diabetes Screening [facility] Start: 04-01-2025 Potassium measurement Potassium Level [facility] Start: 03-31-2025 End: 03-24-2026 Basic metabolic 2000 panel - Serum or Plasma Basic Metabolic Panel Lab Routine KARLEE (acute kidney injury) Expected: 03/31/2025, Expires: 03/24/2026 [facility] Comment on above: Expected: 03/31/2025, Expires: Start: 03-31-2025 End: 03-24-2026 CBC W Auto Differential panel - Blood CBC with Auto Differential Lab Routine KARLEE (acute kidney injury) Expected: 03/31/2025, Expires: 03/24/2026 [facility] Comment on above: Expected: 03/31/2025, Expires: Start: 03-29-2025 Creatinine measurement Creatinine Level [facility] Start: 03-29-2025 Potassium measurement Potassium Level [facility] Start: 03-29-2025 End: 03-29-2025 Patient encounter procedure 03/29/2025 1:00 PM EDT Off ice Visit [facility] Card[facility] [address] [place] [address] Kendra Herrera MD [address] [facility] [address] [place] [address] SIMULATION DEVELOPER---pt having PAF (paroxysmal atrial fibrillation) (HCC), Dysautonomia orthostatic hypotension syndrome, Dizziness, Iron deficiency anemia, unspecified iron deficiency anemia type, Syncope and collapse, Frequent falls, Chronic anticoagulation, History of DVT (deep vein thrombosis), Dissection of aorta, unspecified portion of aorta (HCC) [facility] Comment on above: SIMULATION DEVELOPER---pt having PAF (paroxysmal atrial fi brillation) (HCC), Dysautonomia orthostatic hypotension syndrome, Dizziness, Iron deficiency anemia, unspecified iron deficiency anemia type, Syncope and collapse, Frequent falls, Chronic anticoagulation, History of DVT (deep vein thrombosis), Dissection of aorta, unspecified portion of aorta (HCC) Start: 03-28-2025 Diabetes mellitus screening Diabetes Screening [facility] Start: 03-24-2025 End: 03-24-2025 ambulatory 03/24/2025 1:00 PM EDT Anti-coag visit [facility] Medication Management [address] [place] [address] INR check 3rd visit weight down to 85 lb - ED visit 03/20/25 for bleeding/injury to leg [facility] Medication Management Comment on above: INR check 3rd visit weight down to 85 lb - ED visit 03/20/25 for bleeding/injury to leg Start: 03-23-2025 End: 03-23-2025 Patient encounter procedure 03/23/2025 2:15 PM EDT Off ice Visit [facility] Part of [facility] [address] [place] [address] Rhoda Quezada MD [address] [place] [address] F/U labs [facility] Part of [facility] Comment on above: F/U labs Start: 03-23-2025 End: 03-23-2025 Patient encounter procedure [facility] Part of [facility] Comment on above: Chronic obstructive pulmonary disease, u nspecified COPD type (HCC) COPD,PFT 01/24/25, CT A 12/09/24 Start: 03-17-2025 Influenza vaccination Flu vaccine (#1) Flory Cage [facility] Start: 03-17-2025 Thyroid stimulating hormone measurement TSH Level [facility] Start: 03-10-2025 End: 03-10-2025 Patient encounter procedure 03/10/2025 1:30 PM EDT [place] [address] [place] [address] Nolan Julio MD M[facility] [address] [address] [place] [address] [facility] [place] Start: 03-09-2025 End: 03-09-2025 Patient encounter procedure 03/09/2025 1:15 PM EDT Off ice Visit [facility] [address] [place] [phone] Douglas Will MD [address] [place] [phone] [facility] Start: 03-08-2025 End: 03-08-2025 Patient encounter procedure [facility] Comment on above: Chronic obstructive pulmonary disease, u nspecified COPD type (HCC); SOB (shortness of breath) Start: 03-06-2025 End: 03-06-2025 Patient encounter procedure [facility] Comment on above: Arrived Start: 02-20-2025 End: 02-20-2025 Patient encounter procedure [facility] Comment on above: Arrived Start: 02-16-2025 End: 02-16-2025 Patient encounter procedure [facility] Comment on above: New- Referred by Moris Dysautonomia orth ostatic hypotension syndrome Start: 02-09-2025 End: 08-11-2026 Esophagogastroduodenoscopy (EGD) w Dilation TTS Esophagogastroduodenoscopy (EGD) w Dilation TTS Endoscopy Routine Gastroesophageal reflux disease, unspecified whether esophagitis present Dysphagia, unspecified type Expected: 02/09/2025 (Approximate), Expires: 08/11/2026 [facility] Service Area Work Phone: Comment on above: Expected: 02/09/2025 (Approximate), Expi res: 08/11/2026 Start: 02-03-2025 End: 02-03-2025 Patient encounter procedure 02/03/2025 11:45 AM EDT Office Visit [facility] [address] [place] [phone] Douglas Will MD [address] [place] [phone] [facility] Start: 01-18-2025 End: 01-18-2025 Patient encounter procedure 01/18/2025 9:20 AM EDT Off ice Visit [facility] [address] [phone] Toni Moore MD [address] [place] [phone] 1 yr with pacer check/Biotronik [facility] Part [facility] Comment on above: 1 yr with pacer check/Biotronik Start: 01-13-2025 End: 01-13-2025 ambulatory 01/13/2025 12:00 PM EDT Nurs e Injection [facility] [address] [place] [address] [facility] Start: 01-12-2025 End: 01-12-2026 Basic metabolic 1998 panel - Serum or Plasma Basic metabolic panel Lab Routine Encounter for long-term 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 medication Expected: 01/12/2025 (Approximate), Expires: 01/12/2026 [facility] Work Phone: Comment on above: Expected: 01/12/2025 (Approximate), Expi res: 01/12/2026 Start: 01-12-2025 End: 01-12-2026 CBC W Auto Differential panel - Blood CBC and differential Lab Routine Iron 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 dietary iron intake Expected: 01/12/2025 (Approximate), Expires: 01/12/2026 [facility] Comment on above: Expected: 01/12/2025 (Approximate), Expi res: 01/12/2026 Start: 01-12-2025 End: 01-12-2026 Hepatic function 2000 panel - Serum or Plasma Hepatic function panel Lab Routine Severe protein-calorie malnutrition (CMS/HCC) Expected: 01/12/2025 (Approximate), Expires: 01/12/2026 [facility] Comment on above: Expected: 01/12/2025 (Approximate), Expi res: 01/12/2026 Start: 01-12-2025 End: 01-12-2026 Iron and Iron binding capacity panel - Serum or Plasma Iron and TIBC Lab Routine Iron 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 dietary iron intake Expected: 01/12/2025 (Approximate), Expires: 01/12/2026 [facility] Comment on above: Expected: 01/12/2025 (Approximate), Expi res: 01/12/2026 Start: 01-12-2025 End: 01-12-2026 Thyrotropin [Units/volume] in Serum or Plasma TSH Lab Routine Adult hypothyroidism (CMS/HCC) Expected: 01/12/2025 (Approximate), Expires: 01/12/2026 [facility] Comment on above: Expected: 01/12/2025 (Approximate), Expi res: 01/12/2026 Start: 01-12-2025 End: 01-12-2026 Thyroxine (T4) free [Mass/volume] in Serum or Plasma T4, free Lab Routine Adult hypothyroidism (CMS/HCC) Expected: 01/12/2025 (Approximate), Expires: 01/12/2026 [facility] Comment on above: Expected: 01/12/2025 (Approximate), Expi res: 01/12/2026 Start: 01-12-2025 End: 01-12-2026 Triiodothyronine (T3) Free [Mass/volume] in Serum or Plasma T3, free Lab Routine Adult hypothyroidism (CMS/HCC) Expected: 01/12/2025 (Approximate), Expires: 01/12/2026 [facility] Comment on above: Expected: 01/12/2025 (Approximate), Expi res: 01/12/2026 Start: 12-31-2024 Echocardiography [facility] Start: 12-23-2024 End: 12-23-2025 CBC W Auto Differential panel - Blood CBC and differential Lab Routine Iron 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 dietary iron intake Expected: 12/23/2024 (Approximate), Expires: 12/23/2025 [facility] Work Phone: Comment on above: Expected: 12/23/2024 (Approximate), Expi res: 12/23/2025 Start: 12-23-2024 End: 12-23-2024 Patient encounter procedure 12/23/2024 11:45 AM EDT Office Visit [facility] [address] [place] [address] Douglas Will MD [address] [place] [phone] Arrived [facility] Comment on above: Arrived Start: 12-20-2024 Depression Screening Depression Screening [facility] Start: 12-13-2024 End: 12-13-2024 Patient encounter procedure 12/13/2024 12:00 PM EDT Office Visit [facility] [address] [place] [address] Capri Matthews, FARM FACILITY MANAGER-BIOGEOGRAPHER [address] [address] [facility] Start: 12-07-2024 End: 12-07-2025 Basic metabolic 1998 panel - Serum or Plasma Basic metabolic panel Lab Routine Essential hypertension, benign (CMS/HCC) Expected: 12/07/2024 (Approximate), Expires: 12/07/2025 [facility] Work Phone: Comment on above: Expected: 12/07/2024 (Approximate), Expi res: 12/07/2025 Start: 12-07-2024 End: 12-07-2025 CBC W Auto Differential panel - Blood CBC and differential Lab Routine Encounter for long-term 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 medication Expected: 12/07/2024 (Approximate), Expires: 12/07/2025 [facility] Comment on above: Expected: 12/07/2024 (Approximate), Expi res: 12/07/2025 Start: 12-07-2024 End: 12-07-2025 Hemoglobin A1c/Hemoglobin.total in Blood Hemoglobin A1c Lab Routine Prediabetes Expected: 12/07/2024 (Approximate), Expires: 12/07/2025 [facility] Comment on above: Expected: 12/07/2024 (Approximate), Expi res: 12/07/2025 Start: 12-07-2024 End: 12-07-2025 Hepatic function 2000 panel - Serum or Plasma Hepatic function panel Lab Routine Encounter for long-term 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 medication Expected: 12/07/2024 (Approximate), Expires: 12/07/2025 [facility] Comment on above: Expected: 12/07/2024 (Approximate), Expi res: 12/07/2025 Start: 12-07-2024 End: 12-07-2025 Lipid 1996 panel - Serum or Plasma Lipid panel Lab Routine CAD in [place] artery ([facility]/HCC) Expected: 12/07/2024 (Approximate), Expires: 12/07/2025 [facility] Comment on above: Expected: 12/07/2024 (Approximate), Expi res: 12/07/2025 Start: 12-07-2024 End: 12-07-2025 Thyrotropin [Units/volume] in Serum or Plasma TSH Lab Routine Adult hypothyroidism ([facility]) Expected: 12/07/2024 (Approximate), Expires: 12/07/2025 [facility] Comment on above: Expected: 12/07/2024 (Approximate), Expi res: 12/07/2025 Start: 12-07-2024 End: 12-07-2025 Thyroxine (T4) free [Mass/volume] in Serum or Plasma T4, free Lab Routine Adult hypothyroidism ([facility]) Expected: 12/07/2024 (Approximate), Expires: 12/07/2025 [facility] Comment on above: Expected: 12/07/2024 (Approximate), Expi res: 12/07/2025 Start: 12-07-2024 End: 12-07-2024 Patient encounter procedure [facility] Comment on above: Arrived Start: 11-30-2024 End: 11-30-2024 Patient encounter procedure 11/30/2024 11:30 AM EDT Office Visit [facility] [address] [place] [address] Cindy Bernal NP [address] [place] [address] Arrived [facility] Comment on above: Arrived Start: 09-06-2024 End: 09-06-2024 Nursing evaluation of patient and report 09/06/2024 12:15 AM EST Nurse Only [facility] [address] [place] [phone] pacer remote check [facility] Comment on above: pacer remote check Start: 08-12-2024 DIABETES SCREEN DIABETES SCREEN [facility] Start: 06-21-2024 End: 06-21-2024 Patient encounter procedure 06/21/2024 1:00 PM EST Off ice Visit [facility] [address] [place] [address] Douglas Will MD [address] [place] [address] [facility] Start: 06-03-2024 End: 06-03-2024 Patient encounter procedure [facility] Comment on above: Arrived Start: 05-24-2024 End: 05-24-2024 Patient encounter procedure 05/24/2024 7:40 AM EDT Off ice Visit [facility] [address] [place] [address] Lurdes Toney, [place] [address] [place] [address] Arrived [facility] Comment on above: Arrived Start: 04-17-2024 COVID-19 Vaccine ( season) COVID-19 Vaccine ( season) [facility] Start: 04-17-2024 COVID-19 Vaccine ( season) COVID-19 Vaccine ( season) [facility] Start: 04-17-2024 Covid-19 Vaccine ( season) Covid-19 Vaccine ( season) [facility] Start: 04-17-2024 Influenza vaccination Influenza Vaccine (#1) [facility] Start: 04-07-2024 End: 04-07-2024 Patient encounter procedure 04/07/2024 11:30 AM EDT Office Visit [facility] [address] [place] [address] Douglas Will MD [address] [place] [address] Arrived [facility] Comment on above: Arrived Start: 03-31-2024 End: 03-31-2024 Patient encounter procedure 03/31/2024 7:30 AM EDT [place] [address] [place] [address] oNlan Julio MD MPH [address] [place] [address] [facility] [place] Start: 03-29-2024 End: 09-29-2025 Esophagogastroduodenoscopy (EGD) w Dilation TTS Esophagogastroduodenoscopy (EGD) w Dilation TTS Endoscopy Routine Gastroesophageal reflux disease, unspecified whether esophagitis present Expected: 03/29/2024, Expires: 09/29/2025 [facility] Service Area Work Phone: Comment on above: Expected: 03/29/2024, Expires: Start: 03-16-2024 End: 03-16-2024 Patient encounter procedure 03/16/2024 10:40 AM EDT Office Visit [facility] [address] [phone] Toni Moroe MD [address] [place] [phone] 1 year folow up with pacer check/Biotronik [facility] Comment on above: 1 year folow up with pacer check/Biotron ik Start: 03-16-2024 End: 03-16-2024 Patient encounter procedure 03/16/2024 9:20 AM EDT Off ice Visit [facility] [address] [phone] Toni Moore MD [address] [place] [phone] 1 year folow up with pacer check/Biotronik [facility] Comment on above: 1 year folow up with pacer check/Biotron ik Start: 09-12-2023 COVID-19 Vaccine () COVID-19 Vaccine () [facility] Start: 09-01-2023 End: 09-01-2023 Nursing evaluation of patient and report [facility] Comment on above: Pacer remote check Start: 08-17-2023 Advance Directive Discussion Advance Directive Discussion [facility] Start: 07-16-2023 Hepatitis B surface antibody level LDL Cholesterol [facility] Start: 07-13-2023 Annual Wellness Visit (Medicare) Annual Wellness Visit (Medicare) FLORY CAGE [facility] Start: 05-21-2023 End: 05-21-2023 Patient encounter procedure 05/21/2023 1:00 PM EDT Appointment [facility] Non-Invasive Cardiology [address] [place], [place] [phone] EPIC/PT [facility]vasive [facility] Comment on above: EPIC/PT Start: 05-18-2023 End: 05-18-2023 Patient encounter procedure 05/18/2023 11:00 AM EDT Office Visit [address] [address] Toni Moore MD [address] [place] [phone] ed follow up [facility] Comment on above: ed follow up Start: 05-12-2023 End: 05-12-2023 Patient encounter procedure 05/12/2023 11:20 AM EDT Appointment [facility] Medication Management [address] [place] [phone] INR check- [facility] Medication Management Comment on above: INR check- Start: 04-17-2023 Covid-19 Vaccine ( season) Covid-19 Vaccine () [facility] Start: 04-17-2023 Influenza vaccination Influenza Vaccine (#1) [facility] Start: 04-03-2023 Lipid panel [facility] Start: 03-17-2023 Influenza vaccination Flu vaccine (#1) [facility] Start: 03-11-2023 End: 03-11-2023 Patient encounter procedure 03/11/2023 Office Visit Cardiology Toni Moore MD [address] [place] [address] [facility] Start: 03-11-2023 End: 03-11-2023 Patient encounter procedure 03/11/2023 Office Visit Cardiology Muriel Deal PA-C [address] [place] [address] [facility] Start: 03-03-2023 End: 03-03-2023 Patient encounter procedure 03/03/2023 Appointment Pharmacy [facility]ication [facility] Start: 02-20-2023 End: 02-20-2023 Patient encounter procedure 02/20/2023 Appointment Pharmacy [facility] Start: 02-03-2023 End: 02-03-2023 Patient encounter procedure 02/03/2023 Appointment Pharmacy [facility] Start: 01-06-2023 End: 01-06-2023 Patient encounter procedure [facility] Start: 12-23-2022 End: 12-23-2022 Patient encounter procedure 12/23/2022 Appointment Pharmacy [facility]ication [facility] Start: 12-08-2022 End: 12-08-2022 Patient encounter procedure [facility] Start: 12-02-2022 End: 12-02-2022 Nursing evaluation of patient and report 12/02/2022 Nurse Only Cardiology [facility] Start: 11-28-2022 End: 11-28-2022 Patient encounter procedure 11/28/2022 Appointment Pharmacy [facility]ication [facility] Start: 08-26-2022 End: 08-26-2022 Nursing evaluation of patient and report 08/26/2022 Nurse Only Cardiology [facility] Start: 08-17-2022 ADVANCE DIRECTIVE DISCUSSION ADVANCE DIRECTIVE DISCUSSION [facility] Start: 08-17-2022 DEPRESSION ASSESSMENT DEPRESSION ASSESSMENT [facility] Start: 07-08-2022 Creatinine measurement Creatinine monitoring [facility] Start: 07-01-2022 Creatinine measurement Creatinine monitoring [facility] Start: 06-30-2022 End: 06-30-2022 Patient encounter procedure 06/30/2022 Office Visit Cardiology Toni Moore MD [address] [place] [address] [facility] Start: 06-20-2022 End: 06-20-2022 Patient encounter procedure [facility] Start: 06-10-2022 COVID-19 Vaccine (3 - Booster for Moderna series) COVID-19 Vaccine (3 - Booster for Moderna series) [facility] Start: 06-10-2022 COVID-19 Vaccine (3 - Moderna series) COVID-19 Vaccine (3 - Moderna series) [facility] Start: 06-10-2022 COVID-19 VACCINE (5 - Booster for Moderna series) COVID-19 VACCINE (5 - Booster for Moderna series) [facility] Start: 06-10-2022 Hemoglobin A1c measurement Diabetes: Hemoglobin A1C [facility] Start: 06-09-2022 End: 06-09-2022 Patient encounter procedure 06/09/2022 Appointment Pharmacy [facility]ication [facility] Start: 06-06-2022 End: 06-06-2022 Patient encounter procedure 06/06/2022 Appointment Pharmacy [facility]ication [facility] Start: 04-28-2022 End: 04-28-2022 Patient encounter procedure 04/28/2022 Appointment Pharmacy [facility]ication [facility] Start: 04-17-2022 Influenza vaccination Flu vaccine (#1) [facility] Start: 02-27-2022 End: 02-27-2022 Patient encounter procedure 02/27/2022 Appointment Pharmacy [facility]ication [facility] Start: 02-24-2022 End: 02-24-2022 [facility] Start: 02-12-2022 End: 02-12-2022 Patient encounter procedure 02/12/2022 Appointment Pharmacy [facility]ication [facility] Start: 02-10-2022 End: 04-12-2022 C reactive protein [Mass/volume] in Serum or Plasma C-REACTIVE PROTEIN (CRP) Lab Routine Knee pain, unspecified chronicity, unspecified laterality Expected: 02/10/2022, Expires: 04/12/2022 [facility] Work Phone: Comment on above: Expected: 02/10/2022, Expires: 2 Start: 02-10-2022 End: 04-12-2022 Erythrocyte sedimentation rate SED RATE [facility] Lab Routine Knee pain, unspecified chronicity, unspecified laterality Expected: 02/10/2022, Expires: 04/12/2022 [facility] Work Phone: Comment on above: Expected: 02/10/2022, Expires: 2 Start: 01-29-2022 End: 01-29-2022 Patient encounter procedure 01/29/2022 Appointment Pharmacy [facility] Medication Management Start: 01-01-2022 PAULA, Provider: Nolan Julio, Status: Pen, Time: 1:15 PM PAULA, Provider: Nolan Julio, Status: Pen, Time: 1:15 PM [facility]-Anesthesiology -[facility] Work Phone: Start: 12-17-2021 [facility]: Nolan Julio, Status: Pen, Time: 8:00 AM SURGC, Provider: Nolan Julio, Status: Pen, Time: 8:00 AM [facility]esthesiology -[facility] Work Phone: Start: 12-13-2021 End: 12-13-2021 Patient encounter procedure 12/13/2021 Appointment Pharmacy [facility] Medication Management Start: 12-09-2021 End: 12-09-2021 Patient encounter procedure 12/09/2021 Office Visit Cardiology Toni Moore MD [address] [place] [address] [facility] Start: 12-03-2021 End: 12-03-2021 Nursing evaluation of patient and report 12/03/2021 Nurse Only Cardiology [facility] Start: 11-10-2021 Annual Wellness Visit (AWV) Annual Wellness Visit (AWV) [facility] Start: 10-23-2021 COVID-19 VACCINE (4 - Booster for Moderna series) COVID-19 VACCINE (4 - Booster for Moderna series) [facility] Start: 08-20-2021 COVID-19 Vaccine (2 - Booster for Moderna series) COVID-19 Vaccine (2 - Booster for Moderna series) [facility] Start: 08-20-2021 COVID-19 Vaccine (4 - Booster for Moderna series) COVID-19 Vaccine (4 - Booster for Moderna series) [facility] Start: 08-17-2021 ADVANCE DIRECTIVE DISCUSSION ADVANCE DIRECTIVE DISCUSSION [facility] Start: 08-17-2021 DEPRESSION ASSESSMENT DEPRESSION ASSESSMENT [facility] Start: 08-06-2021 End: 08-06-2021 Patient encounter procedure 08/06/2021 Office Visit Cardiology Toni Moore MD [address] [place] [address] [facility] Start: 07-31-2021 VIRFUCOLEEN, Provider: Nolan Jluio, Status: Pen, Time: 2:15 PM PAULA, Provider: Nolan Julio, Status: Pen, Time: 2:15 PM [id number] l [facility] [place] Work Phone: Start: 07-29-2021 End: 07-29-2021 Patient encounter procedure 07/29/2021 Appointment Pharmacy [facility] Medication Management Start: 2021 SURGC, Provider: Nolan Julio, Status: Carlos, Time: 12:00 PM SURGCMC, Provider: Nolan Julio, Status: Carlos, Time: 12:00 PM [id number] l [facility] [place] Work Phone: Start: 07-08-2021 Annual Wellness Visit (AWV) Annual Wellness Visit (AWV) [facility] Start: 07-04-2021 End: 07-04-2021 Patient encounter procedure 07/04/2021 Appointment Pharmacy [facility] Medication [facility] Start: 07-01-2021 Annual Wellness Visit (AWV) Annual Wellness Visit (AWV) [facility] Start: 06-17-2021 End: 06-17-2021 Patient encounter procedure 06/17/2021 Office Visit Cardiology Toni Moore MD [address] [place] [address] [phone] [facility] Start: 06-06-2021 End: 06-06-2021 Patient encounter procedure 06/06/2021 Appointment Pharmacy [facility] Medication Management Start: 05-09-2021 Annual Wellness Visit (AWV) Annual Wellness Visit (AWV) [facility] Work Phone: Start: 05-01-2021 OSIRIS, Provider: Nolan Julio, Status: Carlos, Time: 10:30 AM OSIRIS, Provider: Nolan Julio, Status: Carlos, Time: 10:30 AM [facility] Work Phone: Start: 04-30-2021 End: 04-30-2021 Patient encounter procedure 04/30/2021 Appointment Pharmacy [facility] Medication Management Start: 04-17-2021 Creatinine measurement Creatinine monitoring [facility] [place] Start: 04-17-2021 Influenza vaccination Flu vaccine (#1) [facility] Work Phone: Start: 04-17-2021 Potassium monitoring Potassium monitoring [facility] Start: 04-16-2021 MSO, Provider: Taurus Dobson, Status: Pen, Time: 8:30 AM MSO, Provider: Taurus Dobson, Status: Pen, Time: 8:30 AM [facility]-Otolaryngology -[place] Work Phone: Start: 04-10-2021 End: 04-10-2021 Office Visit 04/10/2021 Office Visit Cardiology Toni Moore MD [address] [place] [address] [phone] [facility] Start: 04-09-2021 EMOT, Provider: FLORIDALMA PROCEDURE ROOM 10,MG GASTRO, Status: Pen, Time: 10:00 AM EMOT, Provider: FLORIDALMA PROCEDURE ROOM 10,MG GASTRO, Status: Pen, Time: 10:00 AM [facility] Work Phone: Start: 04-06-2021 Creatinine measurement [facility] [place] [place] Start: 04-06-2021 Potassium monitoring Potassium monitoring [facility] [place] [place] Start: 04-05-2021 Creatinine measurement Creatinine monitoring [facility] [place] [place] Start: 04-05-2021 Potassium monitoring Potassium monitoring [facility] [place] [place] Start: 03-20-2021 NPV, Provider: Nolan Julio, Status: Carlos, Time: 1:15 PM NPV, Provider: Nolan Julio, Status: Pen, Time: 1:15 PM [facility]-Otolaryngology -[facility] [employer] Work Phone: Start: 03-19-2021 Annual Wellness Visit (AWV) Annual Wellness Visit (AWV) [facility] [employer] Work Phone: Start: 03-19-2021 End: 03-19-2021 Patient encounter procedure 03/19/2021 Appointment Pharmacy [facility] Medication [facility] Start: 03-12-2021 SWALLOWEVA, Provider: Daisha Lizarraga, Status: Carlos, Time: 1:00 PM SWALLOWEVA, Provider: Daisha Lizarraga, Status: Pen, Time: 1:00 PM [facility]-Otolaryngology -[facility] Work Phone: Start: 03-02-2021 COVID-19 Vaccine (3 - Booster for Moderna series) COVID-19 Vaccine (3 - Booster for Moderna series) FLORY RAINJACKELYN [facility] [employer] Start: 02-20-2021 Annual Wellness Visit (AWV) Annual Wellness Visit (AWV) [facility] Phone: Start: 02-20-2021 End: 02-20-2021 Patient encounter procedure 02/20/2021 Appointment Pharmacy [facility] Medication [facility] Start: 01-28-2021 Annual Wellness Visit (AWV) Annual Wellness Visit (AWV) [facility] Phone: Start: 01-07-2021 End: 01-07-2021 Patient encounter procedure 01/07/2021 Appointment Pharmacy [facility] Medication [facility] Start: 12-07-2020 End: 12-07-2020 Office Visit 12/07/2020 Office Visit Cardiology Toni Moore MD [address] [place] [address] [phone] [facility] Start: 12-04-2020 End: 12-04-2020 Nurse Only 12/04/2020 Nurse Only Cardiology [facility] Start: 07-11-2020 End: 07-11-2020 Appointment 07/11/2020 Appointment Pharmacy [facility] Medication [facility] Start: 07-04-2020 End: 07-04-2020 Office Visit 07/04/2020 Office Visit Cardiology Toni Moore MD [address] [place] [address] [phone] [facility] Start: 06-19-2020 End: 06-19-2020 Appointment 06/19/2020 Appointment Pharmacy [facility] Medication Management Start: 06-04-2020 End: 06-04-2020 Office Visit 06/04/2020 Office Visit Cardiology Toni Moore MD [address] [place] [address] [phone] [facility] Start: 05-09-2020 End: 05-09-2020 Office Visit 05/09/2020 Office Visit Cardiology Toni Moore MD [address] [place] [address] [phone] [facility] Start: 04-27-2020 End: 04-27-2020 Office Visit [facility] Start: 04-17-2020 Influenza vaccination Flu vaccine (#1) [place], [place] Start: 04-13-2020 End: 04-13-2020 Appointment 04/13/2020 Appointment Pharmacy [facility] Medication [facility] Start: 03-26-2020 End: 03-26-2020 Office Visit 03/26/2020 Office Visit Cardiology Toni Moore MD [address] [place] [address] [phone] [facility] Start: 03-07-2020 End: 03-07-2020 Appointment 03/07/2020 Appointment Pharmacy [facility] Medication [facility] Start: 02-14-2020 End: 02-14-2020 Appointment [facility] Medication [facility] Start: 12-26-2019 End: 12-26-2019 Office Visit 12/26/2019 Office Visit Cardiology Toni Moore MD [address] [place] [address] [phone] [facility] Start: 12-11-2019 Creatinine measurement Creatinine monitoring [facility] [place], [place] Start: 12-11-2019 Creatinine monitoring Creatinine monitoring [place], [place] Start: 12-11-2019 Potassium monitoring Potassium monitoring [place], [place] Start: 11-29-2019 End: 11-29-2019 Nurse Only 11/29/2019 Nurse Only Cardiology [facility] Start: 11-28-2019 End: 11-28-2019 Office Visit [facility] Start: 11-16-2019 End: 11-16-2019 Appointment 11/16/2019 Appointment Pharmacy [facility]ication [facility] Start: 07-13-2019 End: 07-13-2019 Appointment 07/13/2019 Appointment Pharmacy [facility]ication [facility] Start: 06-28-2019 End: 06-28-2019 Appointment 06/28/2019 Appointment Pharmacy [facility] Medication [facility] Start: 06-13-2019 End: 06-13-2019 Office Visit 06/13/2019 Office Visit Cardiology Toni Moore MD [address] [place], [place] [phone] [facility] Start: 06-06-2019 End: 06-06-2019 Appointment 06/06/2019 Appointment [facility] Start: 05-30-2019 End: 05-30-2019 Office Visit [facility] Start: 04-26-2019 End: 04-26-2019 Appointment 04/26/2019 Appointment Pharmacy [facility] Medication [facility] Start: 04-17-2019 Influenza vaccination Flu vaccine (#1) [place], [place] Start: 2014 Respiratory Syncytial Virus (RSV) or age 60 yrs+ (1 - 1-dose 75+ series) Respiratory Syncytial Virus (RSV) or age 60 yrs+ (1 - 1-dose 75+ series) Flory Cage [facility] Start: 2014 RSV High Risk: (Elderly (60+) or Population) (1 - 1-dose 75+ series) RSV High Risk: (Elderly (60+) or Population) (1 - 1-dose 75+ series) [facility] Start: 2014 RSV Vaccine (1 - 1-dose 75+ series) RSV Vaccine (1 - 1-dose 75+ series) [facility] Start: 07-07-2013 Shingles Vaccine (2 of 3) Shingles Vaccine (2 of 3) [facility] Start: 07-07-2013 Shingrix Vaccine (2 of 3) Shingrix Vaccine (2 of 3) [facility] Start: 2004 BONE DENSITY BONE DENSITY [facility] Start: 2004 Bone Density Screening Bone Density Screening [facility] Start: 2004 DEXA (modify frequency per FRAX score) DEXA (modify frequency per FRAX score) [place], [place] Start: 2004 Fall Risk Screening Fall Risk Screening [facility] Start: 2004 PNEUMOVAX AGE 65 AND OVER WITH 5YR LOOKBACK (#1) PNEUMOVAX AGE 65 AND OVER WITH 5YR LOOKBACK (#1) [facility] Start: 2004 Screening for osteoporosis Bone Density Screening [facility] Start: 1999 Respiratory Syncytial Virus (RSV) or age 60 yrs+ (1 - 1-dose 60+ series) Respiratory Syncytial Virus (RSV) or age 60 yrs+ (1 - 1-dose 60+ series) [facility] Start: 1999 RSV patients and/or patients aged 60+ years (1 - 1-dose 60+ series) RSV patients and/or patients aged 60+ years (1 - 1-dose 60+ series) [facility] Start: 1999 RSV Vaccine (1 - 1-dose 60+ series) RSV Vaccine (1 - 1-dose 60+ series) [facility] Start: 1994 Screening for osteoporosis DEXA (modify frequency per FRAX score) [facility] Start: 1989 SHINGRIX VACCINE (1 of 2) SHINGRIX VACCINE (1 of 2) [facility] Start: 1958 SHINGRIX VACCINE (1 of 2) SHINGRIX VACCINE (1 of 2) [facility] Start: 1958 Urine screening for protein CKD: Urine Protein Screening [facility] Start: 1957 Anxiety Screening Anxiety Screening [facility] Start: 1957 Depression Screening Depression Screening [facility] Start: 1957 Hepatitis B surface antibody level LDL CHOLESTEROL [facility] Start: 1955 COVID-19 Vaccine (1) COVID-19 Vaccine (1) [facility] Work Phone: Start: 1951 COVID-19 Vaccine (1) COVID-19 Vaccine (1) [facility] Start: 1951 Depression Screen Depression Screen [facility] Start: 1945 Pneumococcal Vaccine: 65+ (1 - PCV) Pneumococcal Vaccine: 65+ (1 - PCV) [facility] Start: 1945 PNEUMOCOCCAL: 65+ (1 - PCV) PNEUMOCOCCAL: 65+ (1 - PCV) [facility] Start: 1944 COVID-19 Vaccine (1) COVID-19 Vaccine (1) [facility] Start: 1939 Annual Wellness Visit (AWV) Annual Wellness Visit (AWV) [facility] Start: 1939 Lipid panel Lipid Panel [facility] Start: 1939 Medicare Annual Wellness Visit Medicare Annual Wellness Visit (AWV) [facility] Basic metabolic 2000 panel Basic Metabolic Panel (BMP) Lab Routine Daily until discontinued starting 04/03/2020, 4 completed [employer] [place], [employer] Comment on above: Daily until discontinued starting 2019, 4 completed End: 01-13-2026 Calcium [Mass/volume] in Serum or Plasma Calcium Lab Routine Age-related osteoporosis without current pathological fracture 1 Occurrences starting 01/13/2025 until 01/13/2026 [facility] Work Phone: Comment on above: 1 Occurrences starting 01/13/2025 until 01/13/2026 CBC auto differential CBC auto d ifferential Lab Routine Daily until discontinued starting 04/03/2020, 4 completed [employer], [employer] Comment on above: Daily until discontinued starting 2019, 4 completed CBC panel - Blood by Automated count CBC Lab Routine Morning draw (Lab) until discontinued starting 03/29/2024, 4 completed [facility] Work Phone: Comment on above: Morning draw (Lab) until discontinued st arting 03/29/2024, 4 completed End: 06-28-2025 CBC W Auto Differential panel - Blood CBC auto differential Lab Routine Tomorrow AM for 99 Occurrences starting 03/22/2025 until 06/28/2025, 3 completed [employer] Comment on above: Tomorrow AM for 99 Occurrences starting 03/22/2025 until 06/28/2025, 3 completed End: 06-28-2025 Comprehensive Metabolic Panel w/ Reflex to MG Comprehensive Metabolic Panel w/ Reflex to MG Lab Routine Tomorrow AM for 99 Occurrences starting 03/22/2025 until 06/28/2025, 3 completed [employer] Comment on above: Tomorrow AM for 99 Occurrences starting 03/22/2025 until 06/28/2025, 3 completed End: 03-31-2024 Continuous Pulse oximetry, In Phase 1 [facility] Work Phone: Comment on above: Continuous until discontinued starting 0 03/31/2024 Dermatopathology exam Dermatopat hology exam Pathology and Cytology Timed Rash and other nonspecific skin eruption Release Upon Ordering for 1 Occurrences starting 05/24/2024 [facility] [place] Work Phone: Comment on above: Release Upon Ordering for 1 Occurrences starting 05/24/2024 End: 03-08-2023 Dxa bone density study 1/> sites axial skel DXA-AXIAL SKELETON Radiology Routine Spinal stenosis of lumbar region, unspecified whether neurogenic claudication present 1 Occurrences starting 02/06/2022 until 03/08/2023 [facility] Work Phone: Comment on above: 1 Occurrences starting 02/06/2022 until 03/08/2023 EKG 12 lead [facility] [place] Comment on above: As Needed until discontinued starting EKG 12 lead EKG 12 lead ECG Routine As Needed until discontinued starting 04/02/2022 [employer] Work Phone: Comment on above: As Needed until discontinued starting EKG 12 lead EKG 12 lead ECG Routine 04/03/2022 2:29 AM EDT [employer] Work Phone: EKG 12 Lead EKG 12 Lead ECG Routine 04/03/2022 4:47 AM EDT [employer] Work Phone: EKG 12 Lead EKG 12 Lead ECG STAT 03/20/2025 10:36 AM EDT [employer] EKG 12 Lead [place] Electrocardiogram, 1 2-lead PRN ACS symptoms Electrocardiogram, 12-lead PRN ACS symptoms ECG Routine As needed until discontinued starting 03/28/2024, 1 completed [facility] Service Area Work Phone: Comment on above: As needed until discontinued starting , 1 completed Electrocardiogram, 1 2-lead PRN ACS symptoms Electrocardiogram, 12-lead PRN ACS symptoms ECG Routine 03/28/2024 10:45 PM EDT [facility] Work Phone: Electrophoresis Prot ein, Serum Electrophoresis Protein, Serum Lab Routine Normocytic anemia 02/16/2025 4:05 PM EDT [employer] Electrophysiology procedure Elec trophysiology procedure CV Electrophysiology Routine Atrial fibrillation, unspecified type (HCC) 04/26/2025 9:35 AM EDT [employer] End: 04-26-2025 Glucose [Mass/volume] in Serum or Plasma POCT Glucose Point of Care Testing Routine One Time for 1 Occurrences starting 04/26/2025 until 04/26/2025 [employer] Comment on above: One Time for 1 Occurrences starting 04/17 until 04/26/2025 End: 04-26-2025 INITIATE PACU OXYGEN THERAPY PROTOCOL Initiate PACU Oxygen Therapy Protocol Respiratory Care Routine Continuous until discontinued starting 04/26/2025 [employer] Work Phone: Comment on above: Continuous until discontinued starting 0 04/26/2025 IR CENTRAL LINE REMOVAL IR CENTR AL LINE REMOVAL Radiology Routine Infection of prosthetic joint, subsequent encounter Ordered: 05/09/2022 [facility] Work Phone: Comment on above: Ordered: 05/09/2022 Magnesium [Mass/Vol] Magnesium L ab Routine Daily until discontinued starting 04/05/2020, 2 completed [employer] Comment on above: Daily until discontinued starting 2019, 2 completed Magnesium [Mass/volu me] in Serum or Plasma Magnesium Lab Routine Morning draw (Lab) until discontinued starting 03/29/2024, 4 completed [facility] Work Phone: Comment on above: Morning draw (Lab) until discontinued st arting 03/29/2024, 4 completed Microorganism identi fied in Unspecified specimen by Culture AFB CULT + STAIN Microbiology Routine S/P revision of total knee, right 03/31/2022 4:21 PM EDT [facility] Work Phone: Oxygen therapy [Mini mum Data Set] Initiate Oxygen Therapy Protocol Respiratory Care Routine Daily until discontinued starting 04/03/2020 [employer] Comment on above: Daily until discontinued starting 2019 Oxygen therapy [Mini mum Data Set] Initiate Oxygen Therapy Protocol Respiratory Care Routine As Needed until discontinued starting 04/02/2022 [facility] Work Phone: Comment on above: As Needed until discontinued starting Oxygen therapy [[facility] Data Set] Initiate Oxygen Therapy Protocol Respiratory Care Routine As Needed until discontinued starting 03/21/2025 [facility] Comment on above: As Needed until discontinued starting Oxygen therapy [[facility] Data Set] Initiate Oxygen Therapy Protocol Respiratory Care Routine As Needed until discontinued starting 04/26/2025 [facility] Comment on above: As Needed until discontinued starting Patient Education Wound Care ED [facility] Work Phone: Patient referral [facility] Work Phone: Percutaneous coronar y intervention Cardiac procedure CV Cardiac Cath Routine Atrial fibrillation, unspecified type (HCC) 04/26/2025 9:35 AM EDT [facility] Work Phone: End: 04-26-2025 Platelets [#/volume] in Blood Platelet Count Lab Routi ne One Time for 1 Occurrences starting 04/26/2025 until 04/26/2025 [facility] Comment on above: One Time for 1 Occurrences starting 04/17 until 04/26/2025 Protime-INR Protime-INR Lab Routine Daily until discontinued starting 04/03/2020, 4 completed [facility] [place] Comment on above: Daily until discontinued starting 2019, 4 completed End: 04-24-2022 Protime-INR Protime-INR Lab Routine Lindsey y for 3 Weeks starting 04/04/2022 until 04/24/2022 [facility] [employer] Work Phone: Comment on above: Daily for 3 Weeks starting 04/04/2022 un til 04/24/2022 Pulse oximetry, spot Pulse oxime try, spot Respiratory Care Routine Every 4 hours as needed. For RT orders only. until discontinued starting 03/29/2024 [facility] Work Phone: Comment on above: Every 4 hours as needed. For RT orders o nly. until discontinued starting 03/29/2024 [employer] spine lumbosac ral 2/3 views XR LUMBAR GENERAL 3V AP/LAT/L5-S1 Radiology Routine Spinal stenosis of lumbar region, unspecified whether neurogenic claudication present Lumbar radiculopathy, chronic Pain in left wrist Spinal stenosis of lumbar region with neurogenic claudication 12/30/2021 9:46 AM EDT [facility] Work Phone: Renal function 2000 panel - Serum or Plasma Renal Function Panel Lab Routine Morning draw (Lab) until discontinued starting 03/29/2024, 4 completed [facility] Work Phone: Comment on above: Morning draw (Lab) until discontinued st arting 03/29/2024, [address] [facility] Service Area Work Phone: Comment on above: Release Upon Ordering for 1 Occurrences starting 03/31/2024, 1 completed End: 06-10-2019 Tilt table test Tilt table test Cardiac Services Routine Essential hypertension ASHD (arteriosclerotic heart disease) Chronic diastolic congestive heart failure (HCC) History of DVT (deep vein thrombosis) Cardiac pacemaker in situ 1 Occurrences starting 06/10/2019 until 06/10/2019 [place] Comment on above: 1 Occurrences starting 06/10/2019 until 06/10/2019 End: 04-26-2025 Heart Transesophageal [facility] Comment on above: One Time for 1 Occurrences starting 04/17 until 04/26/2025 XR FOREARM GENERAL 2 V AP/LAT LEFT XR FOREARM GENERAL 2V AP/LAT LEFT Radiology Routine Pain in left wrist 12/30/2021 9:46 AM EDT [facility] Work Phone: XR WRIST GENERAL 3V PA/LAT/OBL LEFT XR WRIST GENERAL 3V PA/LAT/OBL LEFT Radiology Routine Spinal stenosis of lumbar region, unspecified whether neurogenic claudication present Lumbar radiculopathy, chronic Pain in left wrist Spinal stenosis of lumbar region with neurogenic claudication 12/30/2021 9:46 AM EDT [facility] Work Phone: [facility] Immunizations Immunization Date Immunization Notes Care Provider David newman 04-27-2024 influenza, high dose seasonal, preservative-free Cindy Bernal NP Work Phone: [phone] [place] [address] 04-27-2024 influenza virus vaccine, unspecified formulation Rhoda Higgins MD Work Phone: [facility] 06-23-2023 zoster vaccine recombinant Lucie Kirkpatrick [facility] 05-02-2023 influenza virus vaccine, unspecified formulation Lou Lacy [facility] 05-02-2023 Influenza, High-dose , Quadrivalent Lucie Kaya [facility] 05-02-2023 pneumococcal 20-lina nt conjugate vaccine Lou Lacy [facility] 05-02-2023 zoster vaccine recombinant Lou Lacy [facility] 02-10-2023 tetanus toxoid, reduced diphtheria toxoid, and acellular pertussis vaccine, adsorbed Daniel Araiza MD Work Phone: [facility] Comment on above: Result Comment: 2022: VIS DATE: 03/22/2021 04-15-2022 influenza virus vaccine, unspecified formulation Isauro ARCHULETA [facility] 04-15-2022 Influenza, High-dose , Quadrivalent Lucie Kirkpatrick [facility] 04-15-2022 SARS-CoV-2 (COVID-19 ) mRNA-1273 vaccine Isauro ARCHULETA [facility] 06-25-2021 COVID-19, MODERNA BL UE border, Primary or Immunocompromised, (age 12y+), IM, 100 mcg/0.5mL Karsten Dyer MD Work Phone: [facility] Comment on above: Result Comment: 2022: [id number] 06-25-2021 influenza virus vaccine, unspecified formulation Isauro ARCHULETA [facility] 06-25-2021 influenza, high dose seasonal, preservative-free Lucie [facility] 05-10-2020 influenza virus vaccine, unspecified formulation Isauro RICE [facility] 05-10-2020 influenza, high dose seasonal, preservative-free Epi F Darryl Work Phone: [facility] Work Phone: 06-17-2019 influenza virus vaccine, unspecified formulation Lucie [place] [facility] 05-27-2019 influenza virus vaccine, unspecified formulation Isauro RICE [facility] 05-27-2019 influenza, high dose seasonal, preservative-free Epi F Darryl Work Phone: [facility] Work Phone: 06-30-2018 tetanus toxoid, reduced diphtheria toxoid, and acellular pertussis vaccine, adsorbed Epi F [place] Work Phone: [facility] 06-22-2018 tetanus toxoid, reduced diphtheria toxoid, and acellular pertussis vaccine, adsorbed Epi F [place] Work Phone: [facility] 05-17-2018 influenza virus vaccine, unspecified formulation Isauro RICE [facility] 05-17-2018 influenza, high dose seasonal, preservative-free Epi F Darryl Work Phone: [facility] 05-08-2018 influenza virus vaccine, unspecified formulation [facility] 05-08-2018 influenza, seasonal, injectable Epi F Darryl Work Phone: [facility] Work Phone: 04-23-2017 influenza, high dose seasonal, preservative-free Inessa Navas Other [employer] Other 04-23-2017 influenza virus vaccine, unspecified formulation [facility] 11-27-2016 pneumococcal conjuga te vaccine, 13 valent Epi Andrews Work Phone: [facility] 06-21-2015 pneumococcal conjuga te vaccine, 13 valent [facility] [place] [place] 05-17-2014 influenza virus vaccine, whole virus [facility] 05-12-2013 zoster vaccine, live Stephani Andrews Work Phone: [facility] 06-03-2011 pneumococcal polysaccharide vaccine, 23 valent Epi Andrews Work Phone: [facility] 06-02-2011 pneumococcal polysaccharide vaccine, 23 valent Inessa Navas Other [facility] 08-17-2007 pneumococcal polysaccharide vaccine, 23 valent Epi Andrews Work Phone: [facility] 08-17-1998 pneumococcal polysaccharide vaccine, 23 valent Epi Andrews Work Phone: [facility] NEGATED: Highlighted row has not occurred!12-23-2021 SARS-CoV-2 (COVID-19) Ad26 vaccine, recombinant Isauro RICE [facility] NEGATED: Highlighted row has not occurred!05-06-2018 pneumococcal conjugate vaccine, 13 valent [facility] Comment on above: Deferred: - recieved 2 years ago NEGATED: Highlighted row has not occurred!03-01-2009 pneumococcal polysaccharide vaccine, 23 valent [employer] Work Phone: [facility] Work Phone: Comment on above: Deferred: OTHER Payers Date Payer Category Payer Self-pay [id number] 2014 Medicare [id number] 2014 Medicare MEDICARE MEDICAR E PART A AND B xxxxxxxxxxx 2014-Present [phone] [place] [address] xxxxxxxxxxx [id number] [id number] 2014 Unknown [employer] MEDIC[employer] SUPP [id number] 2014-Present [phone] ATTN INDIVIDUAL CLAIMS [address] [place] [address] xxxxxx-xx 1.2.840.772441.1.13.239. 2.7.3.763450.315 2010 Managed Care Other (unspecified) [employer] [place] 1.2.840.175619.1.13.424. 2.7.9.597310.832.315 2010 Miscellaneous or Other [employer] 1.2.840.865570.1.13.647. 2.7.9.944714.519499.315 2010 Private Health Insurance 1.2 .840.932327.1.13.693. 2.7.9.390055.765785.315 2010 Unknown 2010 Unknown [employer] [place] [employer] [place] MEDIC[place] SUPPLEMENT [id number] 2010-Present [phone] [address] [employer] [place] [address] Indemnity [id number] 1.2.840.482855.1.13.159. 2.7.3.810743.315 2010 Unknown [id number] 1.2.840.657050.1.13.239. 2.7.3.362327.315 2004 Medicare MEDICARE MEDICAR E A AND B [id number] 2004-Present [phone] [address] [address] [place] [address] Medicare [id number] 1.2.840.198786.1.13.159. 2.7.3.182628.315 2004 Medicare 1.2.840.426969. 1.13.159. 2.7.3.104912.315 1959 Medicare [id number] 1.2.840.027140.1.13.239. 2.7.3.386993.315 1959 Unknown [id number] 1939 Unknown [id number] 2.16.840.1.370929.3.579. 2.647 1939 Unknown [id number] 2.16.840.1.368478.3.579. 2.647 1939 Unknown [id number] 2.16.840.1.519259.3.579. 2.593 1939 Unknown [id number] 2.16.840.1.983723.3.579. 2.593 1939 Unknown [id number] 2.16.840.1.878921.3.579. 2.593 1939 Unknown [id number] 2.16.840.1.370789.3.579. 2.727 1939 Unknown [id number] 2.16.840.1.982765.3.579. 2.727 1939 Unknown [id number] 2.16.840.1.349311.3.579. 2.727 1939 Unknown [id number] 2.16.840.1.117010.3.579. 2.727 1939 Unknown [id number] 2.16.840.1.067722.3.579. 2.732 1939 Unknown [id number] 2.16.840.1.539593.3.579. 2.1286 1939 Unknown [id number] 2.16.840.1.651789.3.579. 2.128 1939 Unknown [id number] 2.16.840.1.103983.3.579. 2.1242 1939 Unknown [id number] 2.16.840.1.007687.3.579. 2.128 1939 Unknown [id number] 2.16.840.1.973480.3.579. 2.1286 1939 Unknown [id number] 2.16.840.1.792123.3.579. 2.128 1939 Unknown [id number] 2.16.840.1.545771.3.579. 2.128 1939 Unknown [id number] 2.16.840.1.129132.3.579. 2.128 1939 Unknown [id number] 2.16.840.1.730569.3.579. 2.1286 1939 Unknown [id number] 2.16.840.1.332005.3.579. 2.128 1939 Unknown [id number] 2.16.840.1.005280.3.579. 2.1286 1939 Unknown [id number] 2.16.840.1.231655.3.579. 2.93 1939 Unknown [id number] 2.16.840.1.205579.3.579. 2.1244 1939 Unknown [id number] 2.16.840.1.984858.3.579. 2.1244 1939 Unknown [id number] 2.16.840.1.856053.3.579. 2.1244 1939 Unknown [id number] 2.16.840.1.049415.3.579. 2.1286 1939 Unknown [id number] 2.16.840.1.998605.3.579. 2.1286 1939 Unknown [id number] 2.16.840.1.015804.3.579. 2.1286 1939 Unknown [id number] 2.16.840.1.854008.3.579. 2.6 1939 Unknown [id number] 2.16.840.1.976193.3.579. 2.1286 1939 Unknown [id number] 2.16.840.1.367327.3.579. 2.1286 1939 Unknown [id number] 2.16.840.1.554764.3.579. 2.1286 1939 Unknown [id number] 2.16.840.1.147645.3.579. 2.1286 1939 Unknown [id number] 2.16.840.1.151517.3.579. 2.1286 1939 Unknown [id number] 2.16.840.1.645117.3.579. 2.128 1939 Unknown [id number] 2.16.840.1.797001.3.579. 2.1259 1939 Unknown [id number] 2.16.840.1.947376.3.579. 2.125 1939 Unknown [id number] 2.16.840.1.023319.3.579. 2.125 1939 Unknown [id number] 2.16.840.1.252174.3.579. 2.125 1939 Unknown [id number] 2.16.840.1.066724.3.579. 2.125 1939 Unknown [id number] 2.16.840.1.997627.3.579. 2.1258 1939 Unknown [id number] 2.16.840.1.844098.3.579. 2.1258 1939 Unknown [id number] 2.16.840.1.318148.3.579. 2.1258 1939 Unknown [id number] 2.16.840.1.023434.3.579. 2.1258 1939 Unknown [id number] 2.16.840.1.197392.3.579. 2.1258 1939 Unknown [id number] 2.16.840.1.357530.3.579. 2.1258 1939 Unknown [id number] 2.16.840.1.896506.3.579. 2.125 1939 Unknown [id number] 2.16.840.1.613180.3.579. 2.125 1939 Unknown [id number] 2.16.840.1.262068.3.579. 2.175 1939 Unknown [id number] 2.16.840.1.904686.3.579. 2.173 1939 Unknown [id number] 2.16.840.1.491452.3.579. 2.173 1939 Unknown [id number] 2.16.840.1.637292.3.579. 2.173 1939 Unknown [id number] 2.16.840.1.668234.3.579. 2.173 1939 Unknown [id number] 2.16.840.1.764561.3.579. 2.173 1939 Unknown [id number] 2.16.840.1.558158.3.579. 2.173 1939 Unknown [id number] 2.16.840.1.670854.3.579. 2.173 1939 Unknown [id number] 2.16.840.1.051673.3.579. 2.173 1939 Unknown [id number] 2.16.840.1.370292.3.579. 2.173 1939 Unknown [id number] 2.16.840.1.812801.3.579. 2.173 1939 Unknown [id number] 2.16.840.1.879638.3.579. 2.173 1939 Unknown [id number] 2.16.840.1.388844.3.579. 2.173 1939 Unknown [id number] 2.16.840.1.798120.3.579. 2.173 Unknown [id number] 2.16.840.1.519858.3.579. 2.531 Social History Date Type Detail Facility Start: 12-01-2018 End: 05-10-2025 Tobacco smoking status NHIS Former smoker [facility] Start: 08-17-1950 End: 08-17-1987 History of tobacco use Current smoker [place], [place] Start: 08-17-1950 End: 08-17-1987 History of tobacco use Cigarette Smoker [place] Start: 12-01-2018 End: 04-26-2025 Cigarettes smoked current (pack per day) - Reported [facility] Start: 12-01-2018 End: 04-26-2025 Alcohol intake No Lexie PAYMILL JACIEL HENSLEY Start: 1940 Sex Assigned At Not on file M JACIEL Hirsch Start: 06-27-2019 End: 05-15-2025 Alcohol intake Current non-drinker of alcohol (finding) Lexie PAYMILL JACIEL HENSLEY Exposure to SARS-CoV -2 (event) Unable to assess Lexie PAYMILL JACIEL HENSLEY Start: 04-02-2020 End: 12-17-2023 Tobacco use and exposure Never used Lexie PAYMILL JACIEL HENSLEY Start: 02-28-2020 End: 05-30-2024 Exposure to SARS-CoV-2 (event) Not sure Lexie PAYMILL JACIEL HENSLEY Start: 1940 Sex Assigned At Female F [facility] Start: 03-25-2020 End: 05-03-2022 History SDOH Financial 5 [facility] Start: 03-25-2020 End: 05-03-2022 History SDOH Food Worry 1 [facility] Start: 03-25-2020 End: 05-03-2022 History SDOH Transport Med 2 [facility] Start: 06-19-2023 Tobacco smoking status Never [facility] Joann (I/We) worried prudence er (my/our) food would run out before (I/we) got money to buy more. Never true [facility] In the past 12 month s, was there a time when you were not able to pay the mortgage or rent on time? No [facility] Work Phone: Start: 12-16-2023 End: 03-28-2024 Tobacco smoking status NHIS Never smoked tobacco [facility] Work Phone: Start: 10-29-2022 Gender identity Identifies as female gender (finding) [facility] How often to you hav e a drink containing alcohol? Never [facility] Work Phone: How hard is it for y ou to pay for the very basics like food, housing, medical care, and heating Not very hard [facility] Work Phone: Do you feel stress - tense, restless, nervous, or anxious, or unable to sleep at night because your mind is troubled all the time - these days [OSQ] Not at all [facility] Start: 05-06-2023 Tobacco Comment Smoked less in past [facility] Start: 09-26-2012 End: 03-22-2015 Sex Female (finding) [facility] How often do you nee d to have someone help you when you read instructions, pamphlets, or other written material from your doctor or pharmacy [SILS] Sometimes [facility] Are you now , , , , never or living with a partner? [facility] Do you feel stress - tense, restless, nervous, or anxious, or unable to sleep at night because your mind is troubled all the time - these days [OSQ] Only a little [facility] Medical Equipment Procedure Code Equipment Code Equipment Origin al Text Equipment Identifier Dates Lead Pacemkr Melvin tric Biplr Capsure 52cm - [id number] Start: 03-04-2017 Lead Pacemkr Melvin tric Biplr Capsure 45cm - [id number] Start: 03-04-[address] Flannery [id number] - [id number] Start: 03-04-2017 Tray Powerline Surecuff 5fr Polyurethane Catheter 1 Lumen Microintroducer - [id number] Start: 06-01-2021 Cement Simplex P Tobramycin Bone Full Dose Radiopaque Preblend Sterile - [id number] Start: 08-06-2016 Ok Legion Titani um Tib Base [id number] Start: 08-06-2016 Legion Link Assembly [id number] Sta rt: 08-06-2016 Oxiniumlgn Hk Th readed Axle [id number] Start: 08-06-2016 Comment on above: Description: check for [place] Hyperextension S top With Axle Plugs Legion Hk [id number] Start: 08-06-2016 Ox Lgn Hk Fem [id number] Start: 08-06-2016 Comment on above: Description: check for [place] Legion Hk 13mm B olt And Sleeve [id number] Start: 05-30-2021 Legion Hk Gm Tib Isrt 13mm Sz 2-3 Rt [id number] Start: 05-30-2021 Restrictor Mediu m [place] Cement Disposable Food Service Specialist Distal - [id number] Start: 08-06-2016 Stem Legion 12mm 120mm Femoral Press Fit Knee - [id number] Start: 08-06-2016 Lgn Hk Dis Fem W dg Sz4 10mm - [id number] Start: 08-06-2016 Lgn Hk Dis Fem W dg Sz4 10mm - [id number] Start: 08-06-2016 Stem Legion 12mm 160mm Femoral Press Fit Knee - [id number] Start: 08-06-2016 Sleeve Adapt Leg ion 13mm [place] - [id number] Start: 08-06-2016 Legion Hk Gd Mot ion Isrt 13mm Sz 2-3 Rt - [id number] Start: 08-06-2016 Sleeve Adapt Leg ion 13mm [place] - [id number] Start: 06-18-2018 Legion Hk Gd Mot ion Isrt 13mm Sz 2-3 Rt - [id number] Start: 06-18-2018 Restrictor Small [place] Cement Disposable Food Service Specialist Distal - [id number] Start: 08-06-2016 Legion Hk Gm Tib Isrt 13mm Sz 2-3 Rt [id number] Start: 05-02-2022 Tray Powerline Surecuff 5fr Polyurethane Catheter 1 Lumen Microintroducer - [id number] Start: 05-07-2022 Legion Hk 13mm B olt And Sleeve [id number] Start: 05-02-2022 [facility]-[id number] [place] 8 [id number] Start: 03-15-2020 Clarifix Case [id number] Sta rt: 07-05-2020 Comment on above: Description: Converted from [facility] John padilla. Please see archived information for full log information. Stent 7fr 135cm Vbx Ba Ppm Expandable Cath Hep Vbhn Eprsth 8 Rpl [id number] - [id number] - [id number] Start: 11-28-2023 Graft Stnt 192mm 32mm 22fr Valiant [place] Sinusoidal Str - [id number] - [id number] Start: 11-28-2023 Graft Stnt 192mm 22fr Valiant [place] Cls 30mm - [id number] - [id number] Start: 11-28-2023 Occluder Cv Watc hman Flx Pro Sz 27 Mm Sys Dia12 Fr Frme Nit Polyester Julita - [id number] Start: 04-26-2025 Occluder Cv Watc hman Flx Pro - [id number] Start: 04-26-2025 Goals Date Patient Goal Desired Activity /State Personal health goal Comment on above: Formatting of this n ote might be different from the original. Evaluation of progress towards goal: Patient plans for a safe discharge home with resumption of [facility] home care. Personal health goal Functional Status Date Assessment Result Facility 12-07-2024 Patient Health [facility] ionnaire 2 item (PHQ-2) [Reported] [facility] 06-19-2023 Functional Status N/A [facility] 02-02-2023 Functional Status N/A [facility] 12-01-2022 Functional Status N/A [facility] 04-14-2022 Functional Status N/A [facility] 01-28-2022 Functional Status N/A [facility]2020 to 05-16-2025 Sheri Arshad - 05/16/2025 11:00 AM EDT Note Date & Type Note Facility 05-16-2025 History of Presen t illness Narrative Very brief encounter as they are both eating snacks. Attended to their needs at this time. See Flowsheet. Continue to visit and to support. Sister Sheri Arshad, OSF/T BCC documented in this encounter [facility]25 Evaluation note Diagnosis Onset Date Resolution Dysphagia acute April 1:25pm Esophageal stricture acute Apr 1:25pm Anemia due to stage 3b chronic kidney disease acute May 242024 1:20pm Chronic diastolic CHF (congestive heart failure) acute May 24 1:20pm COPD (chronic obstructive pulmonary disease) acute May 24 1:20pm Coronary artery disease acute O ctober 2024 1:20pm MDD (major depressive disorder), recurrent episode acute May 24 1:20pm Orthostatic hypotension acute O ctober 2024 1:20pm [facility] Work Phone: [phone]) 163-197309-23-2025 Evaluation note* Diagnosis Anemia due to stage 3 chronic kidney disease, 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)- Primary documented in this encounter [facility] Reason for visit Narrative* Treatment Plan and Therapy Plan (Routine) - Authorized Specialty Diagnoses / Procedures Referred By Tru castillo Referred To Contact Diagnoses Anemia due to stage 3 chronic kidney disease, 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) Procedures MN INJ RETACRIT NON-ESRD USE Rhoda Quezada MD [address] [place] [address] Phone: tel: fax: Rhoda Quezada MD [address] [place] [address] Phone: tel: fax: Referral ID Status Reason Start Date Expiration Date V isits Requested Visits Authorized [id number] Authorized 05/09/2025 08/16/2025 1 1 [facility] History of Present illness Narrative* Timothy Penn, - 05/03/2025 8:45 AM EDT Images from the original note were not included. Leyla Lambert presents today for follow up on COPD. [...] at this time. Allergies: Allergies Allergen Reactions Holiday Itching, Other, Unknown and Rash welts Other reaction(s): Welts Other reaction(s): Welts welts Droxidopa Shortness of breath Gold-Containing Drug Products GI intolerance, Itching, Other, Rash and Unknown itching Other reaction(s): Intolerance itching Other reaction(s): Welts itching Holiday Nickel welts Other reaction(s): Welts Other reaction(s): [...] Runny nose Other Gold GI intolerance itching Holiday Nickel welts Latex Rash Patient states allergic [...] or wheezing, Disp: 18 g, Rfl: 5 Rwkggotutyl-Lwcccoppi-Nbdgix (Trelegy Ellipta) 100-62.5-25 MCG/ACT aerosol powder , [...] Ht 5' 4 SpO2 99% BMI 15.79 kg/m Exam: Heart: regular rate Lungs: clear to [...] valve cusp with mild calcified cusp and ssnu-ya-xzghvphe regurgitation, qrol-wy-fgzdjeji tricuspid valve regurgitation, no comment on an RVSP Assessment/Plan: Diagnoses and all orders for this visit: Chronic obstructive pulmonary disease, unspecified COPD type (HCC) - albuterol HFA 90 mcg/act inhaler; Inhale 2 puffs every 4 (four) hours if needed for shortness of breath or wheezing COPD, mild (HCC) - Tvcuceetkcw-Qytfanlpc-Eqdqua (Trelegy Ellipta) 100-62.5-25 MCG/ACT aerosol powder ; [...] however she states they do go to [place] for the winter. They do leave [facility] and will return at the beginning of November. She will follow here in November when she returns from [place]. The patient and her understand the plan and are agreeable. Follow up in about 7 months (around 12/01/2025) for COPD. Timothy Penn DO documented in this encounterParkland Health [id number] History of Present illness Narrative* Chantelle Cortez RN - 04/26/2025 4:04 PM EDT All discharge instructions reviewed, questions answered. Pulses obtained & documented. Pt ambulatory. Site clean dry and intact. No bleeding, hematoma, or bruising noted. Patient to be dischargedwith all belongings by Inaika. IV removed. * Shante Sheridan RN - 04/26/2025 9:43 AM EDT Received post procedure to [facility] to room 5. Assessment obtained. Restrictions reviewed with patient. Post procedure pathway initiated. Right groin site soft, dressing dry and intact with stitch No hematoma noted. Family at side. Patient without complaints. Head of bed flat with right leg straight. * Chantelle Cortez RN - 04/26/2025 7:28 AM EDT Patient admitted, consent signed and questions answered. Call light to reach with side rails up 2 of 2. Bilateral Groin clipped with financial underwriter and La RN present. RN at bedside with patient. History and physical to be updated. VS & Pulses obtained and documented. Bedside EKG complete. IV placed and labs collected. Anesthesia at bedside. Will continue to monitor. Patient hypertensive. Dr. Herrera aware and will treat in OR. [facility] Discharge instructions* Discharge Instructions* Chantelle Cortez RN - 04/26/2025 10:28 AM EDT DISCHARGE INSTRUCTIONS: [facility] : Ok to remove band-aid in 24 hours then then shower. Do not apply further band aids. Keep clean, dry and open to air. Avoid power, lotion, hand furniture stainer on or around site to prevent infection. Do not soak in a pool, Hot Tub, or bath tub and for one week after the test to prevent infection. If there is any bleeding at the site, apply firm pressure with your Fingers/hands until the bleeding stops. If bleeding continues after 3 minutes or if there is any swelling/firm areas (Hematoma) at your puncture site, Call 911. Drink plenty of fluids after the test. This will flush the x-ray dye from your system. Return to your normal diet. The sedative will make you sleepy. Rest until the effects have worn off. Ask your doctor when you will be able to return to work. Avoid lifting objects heavier than 8- 10 pounds (gallon of Milk) for 5-7 days. Avoid Physically demanding activities, and sexual activity for 5-7 days. Try to change positions frequently to prevent blood clots. Medications: Resume normal medicines. Use acetaminophen(Tylenol) for pain relief. DO NOT STOP TAKING BLOOD THINNERS UNLESS TOLD TO BY YOUR TECHNICAL SALES REPRESENTATIVE Do not take metformin (Glucophage) or glyburide and metformin (Glucovance) for 48 hours after the test. Call Your Doctor's office If Any of the Following Occurs : Signs of infection, including fever and chills ,Redness, swelling, increasing pain, excessive bleeding, or any discharge from the insertion site CALL 911 if Any of the Following Occurs: Drooping facial muscles, Changes in vision or speech Change in sensation to affected leg, including numbness and/or tingling. Discoloration of nail beds and/or coolness of affected limp. Extreme sweating, nausea or vomiting Dizziness or lightheadedness. Weakness or fainting Rapid, irregular heartbeat, Palpitations, Chest Pain. shortness of breath, or difficulty breathing Left Atrial Appendage Closure ([facility]) Why is this procedure done? Left atrial appendage or JULITA is a small flat protrusion that sticks off of the side of the left atrium of your heart. It is the most common place for clots to form if you have atrial fibrillation or A-fib. JULITA closure may lower your chances for a stroke. When you have A-fib, the signals to the upper part of the heart, the atria, are very fast and not regular. The atria don t beat as usual, but instead just quiver. This can cause your heart to beat 100 to 175 beats a minute or more. The blood does not empty fully from the upper chambers. It can just pool in the atria and the JULITA. Clots may form, most often in the JULITA, which puts you at higher risk for a stroke. What will the results be? The JULITA closure blocks off this part of your heart and may lower your chance for a stroke. You may also be able to safely stop taking drugs to thin your blood after this procedure. An JULITA closure will not make your a-fib go away. What happens before the procedure? Ask a family member or friend to drive you home. You will not be allowed to drive after your procedure. Your doctor will ask about your health history. Talk to the doctor about: All the drugs you are taking. Be sure to include all prescription, over the counter, vitamins, and herbal supplements. Bring a list of drugs you take with you. Tell the doctor if you have any drug allergy. Any bleeding problems. Be sure to tell your doctor if you are taking any drugs that may cause bleeding. Some of these are warfarin, rivaroxaban, apixaban, ticagrelor, clopidogrel, ketorolac, ibuprofen, naproxen, or aspirin. Certain vitamins and herbs, such as garlic and fish oil, may also add to the risk for bleeding. You may need to stop these drugs as well. Talk to your doctor about them. If you have a stent in place, talk to the doctor that placed the stent before you stop any drugs that thin your blood. Typically, prior to JULITA closure, your doctor will need you to be on a short course of Coumadin or other similar blood thinner to protect you from stroke before and during the procedure. What happens during the procedure? The staff will put an IV in your arm to give you fluids and drugs. Once you are in the operating room, your doctor will give you a drug to make you sleepy. Sometimes, the doctor will give you a special drug to make you numb for the surgery. Other times, you are completely asleep. The doctor will decide what area to use for your procedure. It will most often be the area around one of your upper thighs (groin). This area will be shaved, cleaned, and numbed. The doctors will place a needle in the blood vessel. Then, the doctor passes a small wire and tube, called a catheter, through the needle and moves it into the heart. Another doctor will place a special ultrasound camera into your mouth and down your throat. This camilo JALEESA, or transesophageal echocardiogram. This camera will guide your doctor to make sure the device is in the right place and has a tight seal. The doctor uses a device to seal off the JULITA. This device is left in place and blocks blood from going into the JULITA. The doctor removes the catheter and wire. The doctor will use a sealant or plug to close the opening in the groin. This also lowers the chance of bleeding. Your doctor will place clean bandages over the area. The staff applies pressure to the area to control bleeding. The procedure most often takes from 1 to 3 hours. What happens after the procedure? You will go to the Recovery Room and the staff will watch you closely. You will need to lie flat for some time, typically a few hours, before you can get up. You may have to stay in the hospital overnight. What problems could happen? Internal bleeding or bleeding at the cut site JULITA is not fully closed Damage to the blood vessel Allergic reaction or kidney failure from the dye used Blood clots Irregular heartbeat Heart attack or other damage to the heart Stroke SEDATION / ANALGESIA INFORMATION / HOME GOING ADVICE Sedation/analgesia is used during short medical procedures under controlled supervision. The medication will produce a strong relaxation. You will be able to hear, speak and follow instructions, but your memory and alertness will be decreased.You will be able to swallow and breathe on your own. During sedation/analgesia your blood pressure, heart and breathing will be watched closely. After the procedure, you may not remember what was said or done. POSSIBLE SIDE EFFECTS FROM MEDICATION Drowsiness, dizziness, sleepiness, confusion, or delayed reaction times. Difficulty with your balance especially while walking. Difficulty focusing or blurred vision. INSTRUCTIONS/RESTRICTIONS Have someone responsible help you with your care. Resume your medications unless otherwise instructed. Resume normal diet or as tolerated. Do not drive for 24 hours. Do not operate equipment for 24 hours (lawnmowers, power tools, kitchen accessories, stove). Do not drink any alcoholic beverages for a minimum of 24 hours. Do not make important personal, legal or business decisions for 24 hours. Drink extra amounts of fluids today. If you received anesthesia and have not urinated within 8 hours after the procedure call your doctor. * Attachments The following attachments cannot be sent through Care Everywhere. * Aspirin Oral Tablet 81 mg (ASPIRIN - ORAL) (Venezuelan) documented in [facility] Telephone encounter Note* Telephone Encounter - Douglas Will MD - 04/07/2025 12:16 PM EDT Noted. [facility] [id number] Miscellaneous Notes* Telephone Encounter - Douglas Will MD - 04/07/2025 12:16 PM EDT Noted. * Telephone Encounter - TOMMY BRAVO - 04/07/2025 10:23 AM EDT Patient had a fall out of bed, home health called states it is cleaned and dressed, no longer bleeding. Home Julio will keep an eye on it and call back if she thinks further follow up is necessary. clm documented in this encounterParkland Health [id number] Telephone encounter Note* Telephone Encounter - TOMMY BRAVO - 04/07/2025 10:23 AM EDT Patient had a fall out of bed, home health called states it is cleaned and dressed, no longer bleeding. Home Julio will keep an eye on it and call back if she thinks further follow up is necessary. clm [facility] [id number] History of Present illness Narrative* Douglas Will MD - 04/06/2025 12:34 PM EDTAssociated Problem(s): Severe protein-calorie malnutrition (HHS-HCC) Continue nutritional supplement. * Douglas Will MD - 04/06/2025 12:34 PM EDTAssociated Problem(s): Iron 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 dietary iron intake Follow with hematology * Douglas Will MD - 04/06/2025 12:34 PM EDTAssociated Problem(s): Chronic heart failure with preserved ejection fraction (HFpEF) ([facility]) Follow with cardiology * Douglas Will MD - 04/06/2025 12:33 PM EDTAssociated Problem(s): CAD in [place] artery Continued SOB and heart cath. Follow up with cardiology. * Douglas Will MD - 04/06/2025 12:33 PM EDTAssociated Problem(s): SOB (shortness of breath) Likely multifactoral and follow with specialists. * Douglas Will MD - 04/06/2025 11:30 AM EDT Images from the original note were not included. Subjective Patient ID: Leyla Lambert is a 84 y.o. female who presents for Follow-up (Hospital f/up) and Shortness of Breath. Hospital follow up from 03/21-03/24 for elevated troponin and SOB. C/o SOB for months and weakness. Frequent falls. To ER and troponin elevated. Seen by cardiology and scheduled for heart cath and Watchman Device 04/26. Continues to have SOB. Seen by hematology for anemia and recent labs worse. Likely will need infusions. C/o edema legs. Taking medication daily. Poor PO intake and not on nutritional supplements. Review of Systems Respiratory: Negative for cough, shortness of breath and wheezing. Cardiovascular: Negative for chest pain and palpitations. Gastrointestinal: Negative for abdominal pain, diarrhea, nausea and vomiting. Genitourinary: Negative for dysuria. Objective Physical Exam Constitutional: General: She is not in acute distress. Appearance: Normal appearance. HENT: Head: Normocephalic. Right Ear: Tympanic membrane normal. Left Ear: Tympanic membrane normal. Eyes: Extraocular Movements: Extraocular movements intact. Pupils: Pupils are equal, round, and reactive to light. Cardiovascular: Rate and Rhythm: Normal rate and regular rhythm. Heart sounds: No murmur heard. No friction rub. No gallop. Pulmonary: Effort: Pulmonary effort is normal. Breath sounds: Normal breath sounds. No wheezing, rhonchi or rales. Abdominal: General: Bowel sounds are normal. There is no distension. Palpations: Abdomen is soft. Tenderness: There is no abdominal tenderness. There is no guarding or rebound. Musculoskeletal: Cervical back: Neck supple. Right lower leg: No edema. Left lower leg: No edema. Neurological: Mental Status: She is alert. Assessment/Plan Problem List Items Addressed This Visit CAD in [place] artery - Primary Continued SOB and heart cath. Follow up with cardiology. Chronic heart failure with preserved ejection fraction (HFpEF) (HCC) Follow with cardiology Severe protein-calorie malnutrition (HHS-HCC) Continue nutritional supplement. Lumbar spondylosis Relevant Medications oxyCODONE-acetaminophen (Percocet) 5-325 MG tablet SOB (shortness of breath) Likely multifactoral and follow with specialists. Iron 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 dietary iron intake Follow with hematology documented in this encounterParkland Health [id number] History of Present illness Narrative* Rashmi Liu RN - 03/24/2025 2:04 PM EDT Discharge paperwork explained to patient at bedside. Reviewed orders for labs to be completed next week and orders for home health with [facility]. Explained new medications ordered and where to pick them up. Explained follow up appointment with cardiology (she states she will not go to [place] for thecardiology and will see Dr Moore in [place]) and to also follow up with PCP. Explained to patient to check BP at least daily and provided what a normal blood pressure would be. Explained when to call doctor for a BP reading. Education given on orthostatic hypotension and to move slowly when changingpositions until dizziness passes. Pt states she has her at home to help and also home health. Her came up to floor via wheelchair and required help out to his car via wheelchair. Whengetting patient dressed she states he doesn't want to help me . RN again expresses concerns over pt returning home and she also admits to being scared to fall but refuses rehab. RN changed dressingsto skin tears on bilateral shins and replaced with mepilex dressings. Pt verbalized understanding of all discharge instructions and asked appropriate questions, pt is forgetful at times and does require frequent re-education. Pt wheeled out to private vehicle with with all belongings and paperwork with patient. * Toni Moore MD - 03/24/2025 11:08 AM EDT Images from the original note were not included. I, Kristina Pérez am scribing for and in the presence of Toni Moore MD, MS, F.A.C.C.. Patient: Leyla Lambert : 1940 Date of Visit: March 24, 2025 REASON FOR VISIT / CONSULTATION: Fall, Shortness of Breath, and Fatigue Dear Douglas Will MD, I had the pleasure of seeing your patient Leyla Lambert in office today for a follow up. As you know, Ms. Lambert is a 84 y.o. female with a history of chronic moderate to severe shortness of breath often times with only mild to moderate exertion. Coronary angiography which showed moderate to severe two vessel coronary artery disease. However, I reviewed the images with an interventionalists who really felt that because of the borderline severity of the stenosis, that stenting of thiswould be unlikely to lead to significant benefits and therefore have been treating by more conservative initial guideline directed medical management approach including treatment of her anginal symptoms. She had gotten her knee replacement which has been a source of chronic pain for her. She also had an AV Medtronic pacemaker placed on 03/02/17 for chronotropic incompitence. On 03/20/17 she got a mid LAD stent. 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 Ms. Lambert says that she had gotten a cardiovascular stress test done, echocardiogram, as well as a cardiac catheterization done that had shown a 40% b lockage but no intervention was made. She also had PFT's done around 09/03 which showed a Stage II Obstructive lung defect that improved with bronchodilators. 32 days in and out of the hospital between [facility] and [facility] due to having severe headaches and passing out starting on 04/25/2018. She says prior to this she had gotten SI joint injections and wondered if this is why she was having symptoms of fluctuation in blood pressure, lightheadedness, dizziness, as well as severe headaches. She seen Dr. Garcia at her stay and he had told her she has an orthostatic hypotension intolerance and had started her on Mestinon as well as stopped many of her blood pressure medications. She had fallen after discharge from hospital. Recently I stopped her Lisinopril with plan to start her northera but unfortunately her blood pressure was to elevated to start this and therefore I went ahead and restarted her lisinopril. After last visit she was admitted for 2 days and then transferred to the [facility] for a total right knee replacement on 06/18/18. Ms. Lambert reports being admitted while in [place] for recurrent right knee infections. She was in the emergency room in [place] on 05/25/2019 for hypertension with a systolic blood pressure as high as 212 with a headache at the time. She says her Coreg was increased to 6.25 mg 2 tabs bid. Pacer interrogated in office on 05/30/2019. Tilt tabletest done on 06/10/2019 that showed abnormal head upright tilt table study. Unfortunately she has had a longstanding history of severe dysautonomia with numerous falls and with daily episodes of recurrent lightheadedness and dizziness. She says she had an echocardiogram and heart cath done in [place] in October 2019. She also says she had a PET Stress test done in [place] in October 2019. She unfortunately was admitted on 04/03/2020-04/06/2020 for Sotalol loading and again came to emergency room on 04/17/2020 for shortness of breath and tachycardia. She follows with Dr. Cesar Andrade in [place] and reports just this past winter, she had and EKG and an echocardiogram down there. Stent placement in LAD by Dr Avila at [facility] [place] on 11/12/2021. Pacemaker checked in office by Rep on02/24/2022 but no changes were made. Admitted to hospital on 04/02/2022: Stress test on 04/02/2022 showed Normal with low risk for coronary artery disease. Echocardiogram on 04/02/2022 showed EF: 55% with evidence moderate diastolic dysfunction seen. Echocardiogram completed on 11/25/2023: Left Ventricle: Left ventricle appears normal in size. Systolic function is normal with an ejection fraction of 55-60%. The quantitative EF by [employer]D [employer] biplane is 61%. Grade I diastolic dysfunction (impaired relaxation) is present. Lateral E' is 5.33 cm/s. Medial E' is 5.77 cm/s. Tricuspid Valve: There is no pulmonary hypertension. Ms. Lambert was admitted 03/21/25 for recurrent falls. She states she has been up on her feet and is able to walk to restroom although is short of breath. However she does report feeling a bit better today than yesterday and ready and safe to go home. History of Present Illness The patient is an 84-year-old female with a history of shortness of breath, aortic dissection, chest pain, coronary disease, and paroxysmal atrial fibrillation (PAF), here for a 1-year pacer check ([facility]). She reports feeling generally unwell, with her condition appearing to have worsened since her last visit. She experiences chest pain after walking a certain distance, which subsides once she regains her breath. She also reports lightheadedness upon standing in the morning, which has led to falls. She has been advised to seek hospital care due to her deteriorating condition. She experienced palpitations a few weeks ago. Her blood pressure readings have been variable, with systolic readings ranging from 139 to 180 when sitting and dropping to 68 upon standing. She is currently on Eliquis 2.5 mgtwice daily, atorvastatin 40 mg, clonidine 0.2 mg, Plavix 75 mg, and Toprol-XL 100 mg. She reports experiencing shortness of breath upon standing and walking, which is severe enough to make her feel as though she might faint. She has not been given a clear explanation for her breathlessness. She has an upcoming appointment with a vp securities on 03/08/2025. She has been prescribed Trelegy, but it does not seem to alleviate her symptoms. She also experiences chest discomfort when she is unable to breathe, particularly in the mornings. She has undergone a pulmonary function test and was diagnosed with asthma. Her primary care physician is Dr. Bruner, who has discussed weight losswith her. She weighed 86 pounds this morning. She also reports chronic bruising. She has an appointment with a production control pegboard clerk on 02/16/2025. She consulted a doctor in [place] regarding the possibility of a Watchman device, but was informed that it was not an option due to her blood clotting disorder. She is considering switching from Eliquis to warfarin due to cost concerns. MEDICATIONS Eliquis 2.5 mg twice daily, atorvastatin 40 mg, clonidine 0.2 mg, Plavix 75 mg, Toprol-XL 100 mg, Trelegy Wt Readings from Last 3 Encounters: 03/24/25 41.7 kg (92 lb) 03/20/25 38.6 kg (85 lb) 03/02/25 38.6 kg (85 lb) Past Medical History: Diagnosis Date Abnormal echocardiogram 02/13/2012 EF greater than 55%. Mild diastolic dysfunction. Mild to moderate MR. Abnormal PFT 02/25/2012 moderate obstructive lung disease responsive to bronchodilators Blood disorder MTHR GENE MUTATION Blood transfusion reaction Bronchial asthma 06/21/2012 COPD CAD (coronary artery disease) 06/03/2010 Patent 1st diagonal stents x 2. 50-60% proximal RCA stenosis. CAD (coronary artery disease) 03/03/2014 EF 55%, 70% proximal stenosis in a moderate sized OM2 branch of the Cx, 60-70% proximal RCA stenosis. Cancer (FORM[facility]LY [facility]) 1989,1991 breast cancer bilateral mastectomy Chronic cough 06/21/2012 COPD (chronic obstructive pulmonary disease) ([facility]) H/O cardiac catheterization 04/27/2015 LMCA: Normal 0% stenosis. LAD: Mild Irregularities 10-20%. Patent stent In D1. LCx: Mild Irregularities 10-20%.Lesion on 1st Ob Soraya: Proximal subsection. 60% stenosis. RCA: Lesion on ProxRCA: Distalsubsection. 55% stenosis. H/O cardiac catheterization 03/20/2017 LMCA: Mild irregularities 10-20%. LAD: Lesion on Mid LAD. Mid subsection. 70% stenosis. Comments: Hazy in stent restenosis. On engagement of the left main she developed hypotension in 60s-70s systolic w/noticeable ST elevation in the inferior leads. Disengagement is resolved. However on re-engagement the signs returned but again resolved on disengagement. EF:65% H/O cardiovascular stress test 12/19/2016 No signficant electrocardiographic evidence of myocardial ischemia during EKG monitoring without signficant associated arrhythmias. Patient HR went up to 66% of predicted at peak exertion which suggests only mild to moderate chronotropic incompetence. Clinical correlated required. H/O echocardiogram 11/20/2015 EF:65%. Mildly increased LV wall thickness. Mild mitral and tricuspid regurgitation. Mild pulmonaryhypertension with an estimated RV systolic pressure of 31 mmHg. Evidence of moderate diastolic dysfunction is seen. H/O echocardiogram 03/10/2017 Global LV systolic function is normal EF:>55%. LA normal in size. RA normal in size. Aortic valve structure and function normal. Mitral leaflets appear to be normal. Trace circumferential pericardial effusion is noted. Hiatal hernia History of blood clots 2007 had Elham filter put in by Dr. Alexander History of DVT (deep vein thrombosis) 1989 Hx of 5 History of pulmonary embolus (PE) 2007 She has a known gene deficiency/hypercoag state Hx of blood clots Hyperlipidemia Hypertension Hyperthyroidism CARISA on CPAP 11/19/2015 patient off several years, per vp securities Pacemaker 03/04/2017 Dr. Malorie Liutronic Pulmonary hypertension (HCC) patient states mild S/P cardiac cath 02/13/2012 EF >55%. Patent 1st diagonal stent. 50-60% proximal RCA stenosis. S/P cardiac cath 03/20/2017 PCI Ulcer in stomach Unspecified sleep apnea uses C Pap mx CURRENT ALLERGIES: Latex, Droxidopa, Acetaminophen-codeine, Tylenol with codeine [acetaminophen-codeine], Environmental/seasonal, Gold, Nickel, Holiday, and Gold-containing drug products REVIEW OF SYSTEMS: 14 systems were reviewed. Pertinent positives and negatives as above, all else negative. Past Surgical History: Procedure Laterality Date ABDOMEN SURGERY BREAST SURGERY BILATERAL MASTECTOMY CARDIAC CATHETERIZATION 04/28/2018 RIGHT AND LEFT HEART CATHERIZATION CARDIAC CATHETERIZATION 04/27/2015 Lesion on Prox RCA: Distal subsection.55% stenosis / LAD: Mild irregularities 10-20%.Patent stent in D1 / Lesion on 1st Ob Soraya: Proximal subsection.60% stenosis. 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 2009 LMCA-normal, LAD-patent stent, CX-normal, RCA-30%,EF55-60% ENDOSCOPY, COLON, DIAGNOSTIC EYE SURGERY bilateral cataracts HYSTERECTOMY (CERVIX STATUS UNKNOWN) PARTIAL JOINT REPLACEMENT Right 01/31/2013 knee JOINT REPLACEMENT Right 01/2013 KNEE ARTHROSCOPY Right KNEE SURGERY Right 12/2013 scraped knee cap PACEMAKER INSERTION Left 03/04/2017 PACEMAKER INSERTION PERMANENT performed by Reynold Gunn MD at [facility] OR [place] SURGERY Right VENA CAVA FILTER PLACEMENT 2007 Social History: Social History Tobacco Use Smoking status: Former Current packs/day: 0.00 Average packs/day: 2.0 packs/day for 29.0 years (58.0 ttl pk-yrs) Types: Cigarettes Start date: 02/05/1958 Quit date: 02/05/1987 Years since quittin.1 Smokeless tobacco: Never Vaping Use Vaping status: Never Used Substance Use Topics Alcohol use: No Drug use: No CURRENT MEDICATIONS: Outpatient Medications Marked as Taking for the 03/21/25 encounter (Hospital Encounter) Medication Sig Dispense Refill voqcpthelxd-xmpnyhoge-[id number] (TRELEGY ELLIPTA) 100-62.5-25 MCG/ACT AEPB inhaler Inhale 1 puff into the lungs daily [DISCONTINUED] VENTOLIN HFA 108 (90 Base) MCG/ACT inhaler Inhale 2 puffs into the lungs every 4 hours as needed for Shortness of Breath or Wheezing [DISCONTINUED] warfarin (COUMADIN) 5 MG tablet Take 1 tablet by mouth See Admin Instructions Coumadin Clinic half tablet for .5 mg MF and 5 mg tablet all other days (Patient taking differently: Take 1 tablet by mouth See Admin Instructions Coumadin Clinic: whole tablet for 5 mg MF and half tablet for 2.5 mg all other days) 72 tablet 3 fludrocortisone (FLORINEF) 0.1 MG tablet Take 2 tablets by mouth daily oxyBUTYnin (DITROPAN-XL) 10 MG extended release tablet Take 1 tablet by mouth daily Roflumilast (DALIRESP) 500 MCG tablet Take 1 tablet by mouth daily rOPINIRole (REQUIP) 2 MG tablet Take 1 tablet by mouth nightly atorvastatin (LIPITOR) 40 MG tablet Take 1 tablet by mouth nightly at bedtime. levothyroxine (SYNTHROID) 100 MCG tablet Take 1 tablet by mouth Daily famotidine (PEPCID) 40 MG tablet Take 1 tablet by mouth daily metoprolol succinate (TOPROL XL) 100 MG extended release tablet Take 1 tablet by mouth daily 90 tablet 3 montelukast (SINGULAIR) 10 MG tablet Take 1 tablet by mouth nightly at bedtime. clopidogrel (PLAVIX) 75 MG tablet TAKE 1 TABLET EVERY DAY 90 tablet 3 celecoxib (CELEBREX) 200 MG capsule Take 1 capsule by mouth 2 times daily [DISCONTINUED] traZODone (DESYREL) 150 MG tablet Take 1 tablet by mouth nightly FAMILY HISTORY: family history includes Cancer in her mother. PHYSICAL EXAM: BP (!) 198/71 Pulse 65 Temp 98.7 F (37.1 C) (Temporal) Resp 18 Ht 1.6 m (5' 2.99 ) Wt 41.7 kg (92 lb) Comment: bed zerod SpO2 99% BMI 16.30 kg/m Body mass index is 16.3 kg/m . Constitutional: She is oriented to person, place, and time. She appears well- developed and well-nourished. In no acute distress. HEENT: Normocephalic and atraumatic.No JVD present. Carotid bruit is not present. No mass and no thyromegaly present. No lymphadenopathy present. Cardiovascular: Normal rate, regular rhythm, normal heart sounds. Exam reveals no gallop and no friction rubs. 2/6 systolic murmur, 5th intercostal space on the LEFT in the mid-clavicular line (cardiac apex) Pulmonary/Chest: Effort normal and breath sounds normal. No respiratory distress. She has no wheezes, rhonchi or rales. Abdominal: Soft, non-tender. Bowel sounds and aorta are normal. She exhibits noorganomegaly, mass or bruit. Extremities: Trace. No cyanosis or clubbing. 2+ radial and carotid pulses. Distal extremity pulses:2+ bilaterally. Neurological: She is alert and oriented to person, place, and time. No evidence of gross cranial nerve deficit. Coordination appeared normal. Skin: Skin is warm and dry. There is no rash or diaphoresis. Psychiatric: She has a normal mood and affect. Her speech is normal and behavior is normal. MOST RECENT LABS ON RECORD: Lab Results Component Value Date WBC 5.7 03/24/2025 HGB 8.3 (L) 03/24/2025 HCT 26.2 (L) 03/24/2025 PLT 221 03/24/2025 CHOL 185 04/03/2022 TRIG 101 04/03/2022 HDL 47 04/03/2022 ALT 14 03/24/2025 AST 37 (H) 03/24/2025 NA 138 03/24/2025 K 4.8 03/24/2025 CL 111 (H) 03/24/2025 CREATININE 1.1 (H) 03/24/2025 BUN 26 (H) 03/24/2025 CO2 17 (L) 03/24/2025 TSH 0.06 (L) 04/25/2018 INR 1.6 03/24/2025 BNP 35 02/12/2012 ASSESSMENT: Patient Active Problem List Diagnosis Date Noted Unstable angina ([facility]) 04/03/2022 Tachycardia History of DVT (deep vein thrombosis) Encounter for monitoring sotalol therapy PAF (paroxysmal atrial fibrillation) ([facility]) 04/02/2020 Essential hypertension 12/19/2019 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/2019 Shortness of breath 03/23/2025 KARLEE (acute kidney injury) 03/23/2025 Recurrent falls 03/21/2025 Secondary hypercoagulable state 03/21/2025 Acute kidney injury superimposed on CKD 03/21/2025 Normocytic anemia 02/16/2025 Severe malnutrition 06/15/2018 Cellulitis of leg, right 06/14/2018 Stage 2 moderate COPD by GOLD classification ([facility]) Chronic kidney disease 03/10/2017 CARISA on CPAP 11/19/2015 MTHFR mutation 03/22/2015 retirement 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 02/22/2015 S/P coronary artery stent placement on 03/20/17 12/18/2014 Chronic diastolic HF (heart failure), NYHA class 3 ([facility]) 12/18/2014 CAD (coronary artery disease) 03/03/2014 History of pulmonary embolus (PE) Bronchial asthma 06/21/2012 Pulmonary hypertension (HCC) 02/06/2012 Dyspnea on exertion 02/06/2012 Atrial fibrillation ([facility]) 04/03/2020 PLAN: Assessment & Plan 1. Shortness of breath. She reports significant shortness of breath, especially when getting up and walking, which is not alleviated by her current medication, Trelegy. Her oxygen levels are normal, and her recent echocardiogram and heart catheterization results were satisfactory. The possibility of additional blockages causing her symptoms can not be ruled out. A chemical stress test will be ordered to investigate the cause of her shortness of breath and chest discomfort. Repeat blood work will be ordered to assess her hemoglobin levels, which may be contributing to her symptoms. If the stress test results are concerning, she will be seen sooner. 2. Chest pain. She experiences chest discomfort every time she gets up and can not breathe. Her last stress test was three years ago. A chemical stress test will be ordered to investigate the cause of her chest pain and pressure. If the stress test results are concerning, she will be seen sooner. 3. Paroxysmal atrial fibrillation (PAF). She is currently on Eliquis 2.5 mg twice daily. The potential benefits of discontinuing Eliquis to reduce her risk of stroke and bleeding were discussed. A referral to the Coumadin clinic will be made for further management of her anticoagulation therapy. She will continue on Eliquis until the appropriate warfarin dosage is determined and prescribed by the Coumadin clinic. 4. Anemia. She has a history of anemia, which may be contributing to her shortness of breath. Repeat blood work will be ordered to assess her hemoglobin levels. Follow-up The patient will follow up in 4 months. Dysautonomia orthostatic hypotension syndrome: Syncope and Collapse, Lightheaded/dizziness daily she has not been eating or drinking much due to her esophagus issue. The feeding tube had to be taken out due to infection. She has had 4 falls since her last visit. Start Midodrine 5 mg twice daily. Beta Nereyda: Continue Metoprolol succinate (Toprol XL) 100 mg daily. Continue clonidine 0.2 mg as needed for blood pressure over 170 systolic number if needed it is ok to take to this every four hours if needed. Nonpharmacologic counseling: Because of her condition, I reminded her to try and keep herself well-hydrated and to take extra time when moving from laying to sitting, sitting to standing and standingto walking. I also explained to her to help improve her symptoms she should include 3 g sodium diet, 1 or 2 L of sports drinks daily, knee-high compressions stockings. Referral placed for Dr Ameena Lennon for watchman after discussing with Dr Douglas from [facility]. Essential Hypertension: Uncontrolled: I did discuss with Dr Moore as well as Ms. Lambert regarding her blood pressure management as she does have severe dysautonomia, therefore we do not want to starther on anymore blood pressure medication at this time, as her risk of falling is quite high due to her condition. However we did decide to stop her florinef as this is not helping with her uncontrolled blood pressure. Furthermore she has not bee taking her blood pressure readings so has not really been using the clonidine that was prescribed to her by her open hearth worker in [place]. Therefore I asked her to monitor her blood pressure at home, and if parameters are met to take clonidine, we agreed she should take it. I also asked her to call with blood pressure readings in the next week to let usknow what these readings are and we can further evaluate other management at that time. Beta Nereyda: Continue Metoprolol succinate (Toprol XL) 100 mg daily. Calcium Channel Nereyda: Not indicated at this time. Since her blood pressure was quite elevated in the office along with her symptoms of her increased shortness of breath and lightheartedness/dizziness I did recommend she go to the emergency room, however she refused at this time. Shortness of breath with almost any exertion: worsening shortness of breath. Multifactorial but likely related to the anemia she is experiencing. Echo 11/2024: Normal EF-Heart Cath 2021: We discussed there are multiple possible etiologies for her shortness of breath. Although we did discuss doing a cardiovascular stress test to see if this could be the reason for her chest pressure/shortness of breath, she would like to hold off on this to see if her hemoglobin continues to improve and if her shortness of breath improves from this, which I think is very reasonable at this time. Aortic Dissection: Surgery completed on 11/23/2023 at [facility] Last hemoglobin on 12/23/2024 was 9.5 Continue to follow up with vascular physician (Dr. Higgins) Atypical Chest Pain: Stable with no more chest pain unless she is short of breath then she will develop chest pressure Last Heart cath done on 2021: Moderate CAD with widely patent stent in LAD Antiplatelet Agent: Continue clopidogrel (Plavix): Plavix 75 mg daily. Calcium Channel Nereyda: Not indicated at this time. Cholesterol Reduction Therapy: Continue Atorvastatin (Lipitor) 40 mg daily. Although we did discuss doing a cardiovascular stress test to see if this could be the reason for her chest pressure/shortness of breath, she would like to hold off on this to see if her hemoglobin continues to improve and if her shortness of breath improves from this, which I think is very reasonable at this time. Counseling: I advised Ms. Lambert to call our office or go to the emergency room if she develops worsening or persistent chest pain or shortness of breath as this could be life threatening. Atherosclerotic Heart Disease: Coronary artery stent done by Dr Yadav 04/02, stent in LAD on 11/12/[address] Avila in [place] Antiplatelet Agent: Continue clopidogrel (Plavix): Plavix 75 mg daily. Beta Nereyda: Continue Metoprolol succinate (Toprol XL) 100 mg daily. Cholesterol Reduction Therapy: Continue Atorvastatin (Lipitor) 40 mg daily. Paroxysmal Atrial Fibrillation: Rhythm Control Asymptomatic Frequent falls and says she has fallen about four times due to getting lightheadedness/dizzy and then passing out. She says this has occurred four times since her last visit in the office. She is also having anemia issues and was most recently started on an iron tablet by her primary care for iron deficiency anemia. Her hemoglobin is 9.5on her last lab work. She is very interested in learning more about Beta Nereyda: Continue Metoprolol succinate (Toprol XL) 100 mg daily. [id number] Score for Atrial Fibrillation Stroke Risk Risk Factors Component Value C CHF Yes 1 H HTN Yes 1 A2 Age >= 75 Yes, (84 y.o.) 2 D DM No 0 S2 Prior Stroke/TIA No 0 V Vascular Disease No 0 A Age 65-74 No, (84 y.o.) 0 Sc Sex female 1 [id number] Score 5 Score last updated 04/02/20 4:20 PM EDT Click here for a link to the UpToDate guideline Atrial Fibrillation: Anticoagulation therapy to prevent embolization Disclaimer: Risk Score calculation is dependent on accuracy of patient problem list and past encounter diagnosis. Stroke Risk: CHADS2-VASc Score: 5/9 (6.7% stroke risk) Anticoagulation: Contraindicated right now. Because of many frequent falls including syncopal episodes as well as anemia issues. Therefore I placed a Referral to see if watchman is an option for her vs warfarin which I know would be preferable but I do not think is a feasible fdc option for her. Also cannot afford Eliquis. Additional Testing List: None Chronic Diastolic Heart Failure: Ejection Fraction: >55% on 03/09/2017. Nonpharmacologic management: I also advised her to try and keep his legs up and try and limit salt in her diet. I ordered a BNP to be done. History of DVT (x 5): Anticoagulation: Continue Apixaban (Eliquis) 2.5 mg every 12 hours. I also reminded her to watch for signs of blood in her stool or black tarry stools and stop the medication immediately if this develops as this could be life threatening. Dual Chamber Pacemaker: Indication for Device Placement: Recurrent Syncope with Symptomatic Bradycardia Interrogation Findings: I reviewed her most recent download from 06/22/2024. Iron Deficiency Anemia Continue to follow up Douglas Will MD Continue iron tablets as directed. Once again, thank you for allowing me to participate in this patients care. Please do not hesitate to contact me if I could be of any further assistance. Sincerely, Toni Moore MD, MS, [facility] Interpretive Program Coordinator [address] [place] [phone] , I believe that the risk of significant morbidity and mortality related to the patient's current medical conditions are: Intermediate. The documentation recorded by the scribe, accurately and completely reflects the services I personally performed and the decisions made by me. Toni Moore MD, MS, F.A.C.C. March 24, 2025 * Tamiko Yanez PTA - 03/24/2025 10:53 AM EDT [facility] Inpatient/Observation/Outpatient Rehabilitation Date: 03/24/2025 Patient Name: Leyla Lambert [] Inpatient Acute/Observation [] Outpatient : [id number] [x] Pt refused/declined therapy at this time due to: Pt declined therapy this morning, states that she wasn't feeling well and hoping to go home. Pt with elevated BP. [] Pt cancelled due to: [] No Reason Given [] Sick/ill [] Other: [] Evaluation held by RN/Provider/Physical Therapist due to: [] High Heart Rate [] High Blood Pressure [] Orthopedic Consult [] Hgb < 7 [] Other: [] Pt ordered brace per physician request: [] Proper fit will be completed and education for wearing/skin checks [] Pt does not require skilled services due to: Therapist/Internal Combustion Engine Assembler will attempt to see this patient, at our earliest opportunity. Tamiko Yanez, MINERVA Date: 03/24/2025 Cosigned by Marla Villar, PT at 03/24/2025 11:01 AM EDT * Rashmi Liu RN - 03/24/2025 10:09 AM EDT Reported elevated BP to Analy LOPEZ, new order to start losartan. Pt had ambulated to bathroom and stated she is very SOB and dizzy. Is not feeling well. Test Baker asked if she feels safe going home today and patient refuses to go anywhere for rehab. Test Baker expresses concerns that she will fall at home and patient is adamant that she will go home today. Administered losartan to patient and explainedmedication and its use. Pt verbalized understanding. Will continue monitoring BP. * Rashmi Liu RN - 03/24/2025 8:29 AM EDT Notified Analy LOPEZ of elevated BP, she would like pt to take midodrine this morning and continue monitoring BP. * Lori Canada RPH - 03/24/2025 8:16 AM EDT Images from the original note were not included. [facility] Department of Pharmacy Pharmacy Renal Adjustment Note Leyla Lambert is a 84 y.o. female. Pharmacist assessment of renally cleared medications. Recent Labs 03/22/25 0530 03/23/25 0540 03/24/25 0535 CREATININE 2.0* 1.5* 1.1* Estimated Creatinine Clearance: 25 mL/min (A) (based on SCr of 1.1 mg/dL (H)). Height: Ht Readings from Last 1 Encounters: 03/22/25 1.6 m (5' 2.99 ) Weight: Wt Readings from Last 1 Encounters: 03/24/25 41.7 kg (92 lb) The following medication(s) have been adjusted based upon renal function: Pepcid dose decreased to 10 mg daily for CrCl less than 30 ml/min. Thank you, Lori Canada RPH,03/24/2025,8:16 AM * Rashmi Liu RN - 03/24/2025 7:11 AM EDT Vitals and assessment completed at this time as charted. A/o x4. Denies pain. Orthostatic BP taken,started at 212 systolic ending at 113 systolic. Pt denies headache and blurred vision, does report dizziness when up and moving. Pt sitting up in chair now. Will take BP again before giving medications. Chair alarm on. Call light within reach. * Imani Johnson RN - 03/23/2025 8:40 PM EDT Patients took home patients medications. * Imani Johnson RN - 03/23/2025 6:44 PM EDT Patient assessment and vitals completed as charted. Patient A&OX4 and cooperative with assessment. Patient resting comfortably at this time, denies any pain at this time and denies any needs. Call light within patients reach and bed alarm on. Plan of care ongoing. * Eryn Bai RN - 03/23/2025 5:[address] Alanis on video visit with the patient at this time. * Melania Mcclendon RN - 03/23/2025 4:15 PM EDT Test Baker sitting at window and observed patient pushing a prescription bottle of medications into purse. Test Baker went to bedside and addressed the medications with the patient. Patient described that itwas a medication to help with her restless legs. Test Baker educated patient that she is not to take any medications while she is in the hospital without the doctors approving the medications and the nursing staff administered the medications. The patient denied that she was going to take the medication. Patient did not understand why she could not take the medication because it had been prescribed to her. Test Baker explained to the patient that medications can interact with each other, and the doctors here may choose to prescribe different medications. All medications were reviewed at this time with the patient. Patient was told by financial underwriter that she had one of two options; she could send the medication home with her or that she could give the medications to staff and we would lock them up. Patient stated she would send them home with her . Test Baker explained to the patient the impor tance of under no circumstance taking medications while she is here that are not ordered for her. Patient verbalizes understanding and agrees to send medication home with . * Nyasia Frazier, MINERVA - 03/23/2025 3:23 PM EDT Physical Therapy Facility/Department: [facility] Daily Treatment Note NAME: Leyla Lambert : 1940 Date of Service: 03/23/2025 Discharge Recommendations: Continue to assess pending progress, Subacute/[facility] Facility, Home with Home health PT, Home with assist PRN Patient Diagnosis(es): The primary encounter diagnosis was KARLEE (acute kidney injury). Diagnoses of Elevated troponin, Injury of head, initial encounter, Frequent falls, and Shortness of breath were also pertinent to this visit. Assessment Assessment: Bed mobility: CGA/SBA. Transfers:CGA/SBA. Pt. reports getting dizzy with positional change and required RB to subside. Supine exercises B LE x15 with RB. Gait x10ft with 4WW, CGA for safety d/t dizyiness reported. Activity Tolerance: Patient tolerated treatment well;Patient limited by fatigue;Patient limited by endurance Plan Physical Therapy Plan General Plan: 2 times a day 7 days a week Specific Instructions for Next Treatment: once per day on weekends and holidays Current Treatment Recommendations: Strengthening;ROM;Balance training;Functional mobility training;Transfer training;Endurance training;Gait training;Stair training;Neuromuscular re-education;Pain management;Home exercise program;Therapeutic activities Restrictions Restrictions/Precautions Restrictions/Precautions: Fall Risk, General Precautions Subjective Subjective Subjective: PT. in bed upon arrival, stated not feeling well but is agreeable to get to chair at this itme for lunch. Pain: denies Objective Bed Mobility Training Bed Mobility Training: Yes Overall Level of Assistance: Contact guard assistance;Stand by assistance Interventions: Verbal cues Rolling: Contact guard assistance Supine to Sit: Contact guard assistance;Stand by assistance Scooting: Contact guard assistance;Stand by assistance Transfer Training Transfer Training: Yes Overall Level of Assistance: Contact guard assistance;Stand by assistance Interventions: Verbal cues Sit to Stand: Contact guard assistance;Stand by assistance Stand to Sit: Contact guard assistance;Stand by assistance Toilet Transfer: Contact guard assistance Gait Gait Training: Yes Overall Level of Assistance: Contact guard assistance;Stand by assistance Distance (ft): 10 Feet Assistive Device: Gait belt;Walker, rollator Interventions: Verbal cues Speed/Rena: Slow Step Length: Left shortened;Right shortened PT Exercises Exercise Treatment: supine exercises B LE x15 Other Specialty Interventions Other Treatments/Modalities: commode use and transfer Safety Devices Type of Devices: Call light within reach;Patient at risk for falls;Left in chair;Chair alarm in place;Nurse notified Goals Short Term Goals Time Frame for Short Term Goals: 20 days Short Term Goal 1: Pt to tolerate 20 minutes of ther ex to facilitate return to PLOF. Short Term Goal 2: Pt to ambulate 50' with FWW and SBA to increase ambulatory capacity for d/c Short Term Goal 3: Pt to complete transfers with Mod I to demonstrate increased independacne for safety with d/c. Patient Goals Patient Goals : Pt goal to return home Education Patient Education Education Given To: Patient Education Provided: Role of Therapy;Plan of Care;Transfer Training Education Method: Verbal Barriers to Learning: None Education Outcome: Verbalized understanding;Demonstrated understanding;Continued education needed Therapy Time Individual Concurrent Group Co-treatment Time In 1125 Time Out 1148 Minutes 23 Nyasia Frazier PTA Cosigned by Marla Villar PT at 03/23/2025 3:25 PM EDT * Melania Mcclendon RN - 03/23/2025 1:58 PM EDT Reassessment and vital signs completed, see flowsheet. No changes to previous assessment. Patient denies any further needs at this time. Call light within reach. Care ongoing. * Nyasia Frazier PTA - 03/23/2025 10:26 AM EDT Physical Therapy Facility/Department: [facility] Daily Treatment Note NAME: Leyla Lambert : 1940 Date of Service: 03/23/2025 Discharge Recommendations: Continue to assess pending progress, Subacute/[facility], Home with Home health PT, Home with assist PRN Patient Diagnosis(es): The primary encounter diagnosis was KARLEE (acute kidney injury). Diagnoses of Elevated troponin, Injury of head, initial encounter, Frequent falls, and Shortness of breath were also pertinent to this visit. Assessment Assessment: Transfers: CGA. with v/c for proper hand placement. Gait with 4WW, CGA fr safety 15ftx2, slow rena with decreased step length. Seated exercoses B LE x20. STS x5. Commode use and transfer. Activity Tolerance: Patient tolerated treatment well Plan Physical Therapy Plan General Plan: 2 times a day 7 days a week Specific Instructions for Next Treatment: once per day on weekends and holidays Current Treatment Recommendations: Strengthening;ROM;Balance training;Functional mobility training;Transfer training;Endurance training;Gait training;Stair training;Neuromuscular re-education;Pain management;Home exercise program;Therapeutic activities Restrictions Restrictions/Precautions Restrictions/Precautions: Fall Risk, General Precautions Subjective Subjective Subjective: Pt. up in chair upon arrival, agreeable to therapy at this time. Pain: denies Objective Bed Mobility Training Bed Mobility Training: No Transfer Training Transfer Training: Yes Overall Level of Assistance: Contact guard assistance Interventions: Verbal cues Sit to Stand: Contact guard assistance Stand to Sit: Contact guard assistance Toilet Transfer: Contact guard assistance Gait Gait Training: Yes Overall Level of Assistance: Contact guard assistance Assistive Device: Walker, rolling;Gait belt Interventions: Verbal cues Speed/Rena: Slow Step Length: Left shortened;Right shortened PT Exercises Exercise Treatment: seated exercises B LEx20. STS x5 Other Specialty Interventions Other Treatments/Modalities: commode use and transfer Safety Devices Type of Devices: Call light within reach;Patient at risk for falls;Left in chair;Chair alarm in place;Nurse notified Goals Short Term Goals Time Frame for Short Term Goals: 20 days Short Term Goal 1: Pt to tolerate 20 minutes of ther ex to facilitate return to PLOF. Short Term Goal 2: Pt to ambulate 50' with FWW and SBA to increase ambulatory capacity for d/c Short Term Goal 3: Pt to complete transfers with Mod I to demonstrate increased independacne for safety with d/c. Patient Goals Patient Goals : Pt goal to return home Education Patient Education Education Given To: Patient Education Provided: Role of Therapy;Plan of Care;Transfer Training Education Method: Verbal Barriers to Learning: None Education Outcome: Verbalized understanding;Demonstrated understanding;Continued education needed Therapy Time Individual Concurrent Group Co-treatment Time In 0840 Time Out 0908 Minutes 28 Nyasia Frazier PTA Cosigned by Marla Villar, PT at 03/23/2025 10:39 AM EDT * Delia Taylor, MOLLY - 03/23/2025 9:[address] [facility] SPEECH THERAPY [facility] Dysphagia Treatment Date: 03/23/2025 Patient Name: Leyla Lambert CSN: [id number] : 1940 (84 y.o.) Gender: female Referring Physician: Larisa Reardon MD Diagnosis: recurrent falls Precautions: fall risk Current Diet: Regular Solids; Ground meats, Thin Liquids (may choose softer foods per preference) Swallowing Strategies: Standard [place] Swallow Precautions Date of Last MBS/FEES: Not Applicable Pain: No pain reported. Patient did complain of upset stomach, which [employer] reported to RN. Subjective: Patient was seen for morning snack while she was seated upright in her chair. Patient was alert and cooperative throughout dysphagia treatment. Patient reported she felt sick to her stomach and light headed after PT therapy. [employer] informed RN on patient's status. RN reports they plannedto check on patient. Short-Term Goals: Short-Term Goal Timeframe: 7 Days SHORT TERM GOAL #1: Goal 1: Patient will utilize recommended swallowing strategies during a meal orsnack with 80% accuracy. INTERVENTIONS: Patient was able to demonstrate alternating of liquids and solids, small bites/sips,slow pace, and remaining upright after meal/snacks with 80% accuracy. SHORT TERM GOAL #2: Goal 2: Patient will consume solids without overt s/sx of aspiration/penetration or globus sensation in 80% of opportunities. INTERVENTIONS:Patient was able to consume solids (saltine crackers) without overt s/sx of aspiration/penetration or globus sensation in 80% of opportunities this date. Long-Term Goals: Long-Term Goal Timeframe: 14 Days MED CARE MANAGER GOAL #1: Goal 1: Patient will tolerate safest, least restrictive diet without overt s/sx of aspiration or penetration or globus sensation in 90% of opportunities. Dysphagia Outcome and Severity Scale: 6- Within functional limits/Modified Independent EDUCATION: Learner: Patient and RN Education: Reviewed diet and strategies and Home Safety Education Evaluation of Education: Verbalizes understanding and Demonstrates without assistance ASSESSMENT/PLAN: Activity Tolerance: Patient tolerance of treatment: good. Assessment/Plan: Patient discharged from Speech Therapy at this time due to demonstrating functional oral motor skills and no s/sx aspiration. Continued Speech Therapy Services recommended: Yes. Plan for Next Session: n/a Discharge Recommendations: No follow up therapy recommended post discharge TIME [employer] Individual Minutes Time In: 909 Time Out: 919 Minutes: 10 Electronically Signed by Delia Akers M.A. [facility]-[employer] [employer] * Melania Mcclendon RN - 03/23/2025 9:08 AM EDT Cardiology consult called at this time. * Melania Mcclendon RN - 03/23/2025 9:01 AM EDT Patient awake and resting in chair upon financial underwriter entering the room. Patient is alert and oriented x 4. Vitals and assessment completed, see flowsheets. Abrasion noted on arms and legs from falling. Bruising on face noted. Patient denies any dizziness, numbness, or tingling at this time. Whiteboard updated. Patient denies any further needs at this time. Call light within reach. Care ongoing. * Imani Johnson RN - 03/22/2025 6:28 PM EDT Patient assessment and vitals completed as charted. Patient A&OX4 and cooperative with assessment. Patient resting comfortably at this time, denies any pain at this time and denies any needs. Patient told financial underwriter when she got up to bathroom this last time, she was feeling dizzy. Patient states no longer dizzy while laying in bed. Call light within patients reach and bed alarm on, at bedside. Plan of care ongoing. * Sean Funez - 03/22/2025 4:50 PM EDT Spiritual Services Interventions 301/0302-03/22/2025 Sean Houserrandy Lambert 84 y.o. year old female Encounter Summary Encounter Overview/Reason: (P) Spiritual/Emotional Needs Service Provided For: (P) Patient Referral/Consult From: (P) Jonny Last Encounter : (P) 03/22/25 Complexity of Encounter: (P) Moderate Begin Time: (P) 1430 End Time : (P) 1445 Total Time Calculated: (P) 15 min Spiritual/Emotional needs Type: (P) Spiritual Support Assessment/Intervention/Outcome Assessment: (P) Calm Intervention: (P) Discussed belief system/latter day practices/yu, Discussed illness injury and it s impact Outcome: (P) Encouraged, Engaged in conversation, Comfort * Nyasia Frazier PTA - 03/22/2025 3:01 PM EDT Physical Therapy Facility/Department: [facility] Daily Treatment Note NAME: Leyla Lambert : 1940 Date of Service: 03/22/2025 Discharge Recommendations: Continue to assess pending progress, Subacute/[facility], Home with Home health PT, Home with assist PRN Patient Diagnosis(es): The primary encounter diagnosis was KARLEE (acute kidney injury). Diagnoses of Elevated troponin, Injury of head, initial encounter, Frequent falls, and Shortness of breath were also pertinent to this visit. Assessment Assessment: Bed mobility: CGA/Min A. Transfers:CGA/Min A. Supine and seated exercises B LE 10x2 with RB as needed d/t fatigue. Gait with WW 10ftx1, slow cadnece with decreased step length, CGA for safety. Activity Tolerance: Patient tolerated treatment well Plan Physical Therapy Plan General Plan: 2 times a day 7 days a week Specific Instructions for Next Treatment: once per day on weekends and holidays Current Treatment Recommendations: Strengthening;ROM;Balance training;Functional mobility training;Transfer training;Endurance training;Gait training;Stair training;Neuromuscular re-education;Pain management;Home exercise program;Therapeutic activities Restrictions Restrictions/Precautions Restrictions/Precautions: Fall Risk, General Precautions Subjective Subjective Subjective: Pt. in bed upona arrival, agreeable to therapy at this time. Pain: denies Objective Bed Mobility Training Bed Mobility Training: Yes Overall Level of Assistance: Contact guard assistance;Minimal assistance Interventions: Verbal cues Rolling: Contact guard assistance;Minimal assistance Supine to Sit: Contact guard assistance;Minimal assistance Sit to Supine: Contact guard assistance;Minimal assistance Scooting: Contact guard assistance;Minimal assistance Transfer Training Transfer Training: Yes Overall Level of Assistance: Contact guard assistance;Minimal assistance Interventions: Verbal cues Sit to Stand: Contact guard assistance;Minimal assistance Stand to Sit: Contact guard assistance;Minimal assistance Gait Gait Training: Yes Overall Level of Assistance: Contact guard assistance Distance (ft): 10 Feet Assistive Device: Walker, rolling;Gait belt Interventions: Verbal cues Speed/Rena: Slow Step Length: Left shortened;Right shortened PT Exercises Exercise Treatment: Supine and seated exercises B LE 10x2 Safety Devices Type of Devices: Call light within reach;Patient at risk for falls;Left in bed;Bed alarm in place Goals Short Term Goals Time Frame for Short Term Goals: 20 days Short Term Goal 1: Pt to tolerate 20 minutes of ther ex to facilitate return to PLOF. Short Term Goal 2: Pt to ambulate 50' with FWW and SBA to increase ambulatory capacity for d/c Short Term Goal 3: Pt to complete transfers with Mod I to demonstrate increased independacne for safety with d/c. Patient Goals Patient Goals : Pt goal to return home Education Patient Education Education Given To: Patient Education Provided: Role of Therapy;Plan of Care Education Method: Verbal Barriers to Learning: None Education Outcome: Verbalized understanding Therapy Time Individual Concurrent Group Co-treatment Time In 1315 Time Out 1341 Minutes 26 Nyasia Frazier PTA Cosigned by Marla Joaquin PT at 03/22/2025 3:08 PM EDT * Debi Patel - 03/22/2025 10:53 AM EDT Echocardiogram/doppler done at bedside. Instructed on policies and procedures. * Marbella Cabello SLP - 03/22/2025 8:37 AM EDT Images from the original note were not included. Facsimile Transmission Cover Sheet Information contained in this transmission is for the sole use of the intended recipients and may contain confidential and privileged information. Any unauthorized review, use, disclosure or distribution is prohibited. If you are not the intended recipient, please contact the sender and destroy allcopies of the original message. Disclosure is made for the purpose of healthcare operations and continuity of care. To: __Dr. Reardon From: Speech Therapy Sender:_Marbella Cabello M.S., CCC-[employer] ([facility]) Leyla Wymangustavo current unit [x][facility] [phone] []ICU [phone] Your bedside evaluation order for Leyla Jacob Garogustavo has been completed. Based on the results speech therapy recommends: Regular Solids, Ground meats, Thin Liquids If you agree please enter the new diet order in [facility] or telephone the nursing unit. Diet will not change without your order. Thank you, Electronically signed by: Marbella Cabello M.S., CCC-[employer] * Makayla Smallwood, OMAR - 03/22/2025 8:06 AM EDT Oncology consult called at this time. Will pass along to Dr. Quezada tomorrow morning when in office03/23/2025. * Makayla Smallwood RN - 03/22/2025 8:02 AM EDT Pulmonology consult sent to Dr. Alanis at this time via perfect serve. * Henna Bravo RPH - 03/22/2025 8:01 AM EDT Images from the original note were not included. [facility] Department of Pharmacy Pharmacy Renal Adjustment Note Leyla Lambert is a 84 y.o. female. Pharmacist assessment of renally cleared medications. Recent Labs 03/20/25 1052 03/21/25 1319 03/22/25 0530 CREATININE 1.4* 2.5* 2.0* Estimated Creatinine Clearance: 13 mL/min (A) (based on SCr of 2 mg/dL (H)). Height: Ht Readings from Last 1 Encounters: 03/22/25 1.6 m (5' 3 ) Weight: Wt Readings from Last 1 Encounters: 03/22/25 38.8 kg (85 lb 8 oz) The following medication(s) have been adjusted based upon renal function: Famotidine 20mg po daily decreased to famotidine 10mg po daily for CrCL <30mL/min Thank you, Henna Bravo RPH,03/22/2025,8:00 AM * Kristina Amador OT - 03/22/2025 7:59 AM EDT Occupational Therapy Facility/Department: [facility] Occupational Therapy Initial Assessment Name: Leyla Lambert : 1940 Date of Service: 03/22/2025 Discharge Recommendations: Continue to assess pending progress, 24 hour supervision or assist, Subacute/[facility] Patient Diagnosis(es): The primary encounter diagnosis was KARLEE (acute kidney injury). Diagnoses of Elevated troponin, Injury of head, initial encounter, Frequent falls, and Shortness of breath were also pertinent to this visit. Past Medical History: has a past medical history of Abnormal echocardiogram, Abnormal PFT, Blood disorder, Blood transfusion reaction, Bronchial asthma, CAD (coronary artery disease), CAD (coronary artery disease), Cancer ([facility]), Chronic cough, COPD (chronic obstructive pulmonary disease) ([facility]), H/Ocardiac catheterization, H/O cardiac catheterization, H/O cardiovascular stress test, H/O echocardiogram, H/O echocardiogram, Hiatal hernia, History of blood clots, History of DVT (deep vein thrombosis), History of pulmonary embolus (PE), Hx of blood clots, Hyperlipidemia, Hypertension, Hyperthyroidism, CARISA on CPAP, Pacemaker, Pulmonary hypertension ([facility]), S/P cardiac cath, S/P cardiac cath, Ulcer, and Unspecified sleep apnea. Past Surgical History: has a past surgical history that includes Colon surgery; Cholecystectomy; Hysterectomy; Breast surgery; Diagnostic Cardiac Miner Procedure (2009); joint replacement (Right, 01/31/2013); joint replacement (Right, 01/2013); knee surgery (Right, 12/2013); Knee arthroscopy (Right); Vena Cava Filter Placement (2007); Abdomen surgery; Colonoscopy; Endoscopy, colon, diagnostic;Cardiac surgery; Patella surgery (Right); Pacemaker insertion (Left, 03/04/2017); eye surgery; Cardiac catheterization (04/28/2018); Coronary angioplasty with stent (03/20/2017); Cardiac catheterization (04/27/2015); and Coronary angioplasty with stent. Treatment Diagnosis: Weakness Assessment Performance deficits / Impairments: Decreased functional mobility ;Decreased safe awareness;Decreased balance;Decreased coordination;Decreased ADL status;Decreased posture;Decreased ROM;Decreased endurance;Decreased high-level IADLs;Decreased strength Assessment: 84 year old female admitted to [facility] due to elevated troponin. Patient presents with general weakness requiring supervision and increased time for ADLs. Patient reports significant dizziness and SOB with activity. RN reports O2 remained at 100% throughout evaluation despite pt's report ofSOB. Patient would benefit from skilled OT services to address deficits listed above to ensure safereturn to independent home living. Treatment Diagnosis: Weakness Prognosis: Fair Decision Making: Medium Complexity REQUIRES OT FOLLOW-UP: Yes Plan Occupational Therapy Plan Times Per Day: Once a day Days Per Week: 7 Days Current Treatment Recommendations: Strengthening, ROM, Balance training, Functional mobility training, Endurance training, Safety education & training, Equipment evaluation, education, & procurement, Self-Care / ADL, Patient/Caregiver education & training Restrictions Restrictions/Precautions Restrictions/Precautions: Fall Risk, General Precautions Subjective General Chart Reviewed: Yes Patient assessed for rehabilitation services?: Yes Family / Caregiver Present: No Subjective Subjective: Pt supine in bed upon arrival, denies pain and agreeable to OT eval. Pt reports increased SOB and dizziness with activity. Social/Functional History Social/Functional History Lives With: Spouse Type of Home: House Home Layout: One level Home Access: Stairs to enter with rails Entrance Stairs - Number of Steps: 2 Entrance Stairs - Rails: Right Bathroom Shower/Tub: Tub/Shower unit Bathroom Equipment: Shower chair Home Equipment: Rollator Has the patient had two or more falls in the past year or any fall with injury in the past year?: Yes Receives Help From: Family Prior Level of Assist for ADLs: Independent Prior Level of Assist for Homemaking: Independent Homemaking Responsibilities: Yes Prior Level of Assist for Ambulation: Independent household ambulator, with or without device Prior Level of Assist for Transfers: Independent Active Risk Modeler: No Occupation: Retired Objective Vision Vision: Impaired Vision Exceptions: Wears glasses for reading Hearing Hearing: Within functional limits Observation/Palpation Posture: Fair Safety Devices Type of Devices: Call light within reach;Chair alarm in place;Left in chair;Nurse notified;Patient at risk for falls AROM: Generally decreased, functional PROM: Generally decreased, functional Strength: Generally decreased, functional Coordination: Generally decreased, functional Tone: Normal Sensation: Intact ADL Feeding: Independent Grooming: Contact guard assistance UE Bathing: Minimal assistance UE Bathing Skilled Clinical Factors: seated LE Bathing: Minimal assistance LE Bathing Skilled Clinical Factors: seated UE Dressing: Minimal assistance LE Dressing: Minimal assistance Putting On/Taking Off Footwear: Minimal assistance Toileting: Contact guard assistance Functional Mobility: Contact guard assistance;Minimal assistance Functional Mobility Skilled Clinical Factors: SBA bed mobility; Min A sit-stand; Min A / CGA transfer to chair with FWW. Cues needed for safety due to SOB and tendency to close eyes. Activity Tolerance Activity Tolerance: Patient tolerated evaluation without incident Cognition Overall Cognitive Status: WFL Orientation Overall Orientation Status: Within Functional Limits Education Given To: Patient Education Provided: Role of Therapy;Plan of Care;Transfer Training;Energy Conservation Education Method: Verbal;Demonstration AM-PAC - ADL AM-PAC Daily Activity - Inpatient How much help is needed for putting on and taking off regular lower body clothing?: A Little How much help is needed for bathing (which includes washing, rinsing, drying)?: A Little How much help is needed for toileting (which includes using toilet, bedpan, or urinal)?: A Little How much help is needed for putting on and taking off regular upper body clothing?: A Little How much help is needed for taking care of personal grooming?: A Little How much help for eating meals?: None AM-PAC Inpatient Daily Activity Raw Score: 19 AM-PAC Inpatient ADL T-Scale Score : 40.22 ADL Inpatient CMS 0-100% Score: 42.8 ADL Inpatient CMS G-Code Modifier : CK Goals Short Term Goals Time Frame for Short Term Goals: 21 visits Short Term Goal 1: Pt to be educated on d/c folder, AE/DME, and home safety to ensure safe and indep return home. Short Term Goal 2: Pt to complete BUE the ex / ther act to improve overall strength and endurance for ease with functional tranfers and self care tasks. Short Term Goal 3: Pt will complete grooming/hygiene tasks with SBA EOB or at sink after s/u. Therapy Time Individual Concurrent Group Co-treatment Time In 0735 Time Out 0752 Minutes 17 Kristina Amador OT Cosigned by Nyasia Byrd APRN - CNP at 03/22/2025 9:46 PM EDT * Marla Joaquin, PT - 03/22/2025 7:55 AM EDT Physical Therapy Facility/Department: [facility] Physical Therapy Initial Assessment Name: Leyla Lambert : 1940 Date of Service: 03/22/2025 Discharge Recommendations: Continue to assess pending progress, Subacute/[facility] Facility, Home with Home health PT, Home with assist PRN Patient Diagnosis(es): The primary encounter diagnosis was KARLEE (acute kidney injury). Diagnoses of Elevated troponin, Injury of head, initial encounter, Frequent falls, and Shortness of breath were also pertinent to this visit. Past Medical History: has a past medical history of Abnormal echocardiogram, Abnormal PFT, Blood disorder, Blood transfusion reaction, Bronchial asthma, CAD (coronary artery disease), CAD (coronary artery disease), Cancer (HCC), Chronic cough, COPD (chronic obstructive pulmonary disease) ([facility]), H/Ocardiac catheterization, H/O cardiac catheterization, H/O cardiovascular stress test, H/O echocardiogram, H/O echocardiogram, Hiatal hernia, History of blood clots, History of DVT (deep vein thrombosis), History of pulmonary embolus (PE), Hx of blood clots, Hyperlipidemia, Hypertension, Hyperthyroidism, CARISA on CPAP, Pacemaker, Pulmonary hypertension (HCC), S/P cardiac cath, S/P cardiac cath, Ulcer, and Unspecified sleep apnea. Past Surgical History: has a past surgical history that includes Colon surgery; Cholecystectomy; Hysterectomy; Breast surgery; Diagnostic Cardiac Miner Procedure (2009); joint replacement (Right, 01/31/2013); joint replacement (Right, 01/2013); knee surgery (Right, 12/2013); Knee arthroscopy (Right); Vena Cava Filter Placement (2007); Abdomen surgery; Colonoscopy; Endoscopy, colon, diagnostic;Cardiac surgery; Patella surgery (Right); Pacemaker insertion (Left, 03/04/2017); eye surgery; Cardiac catheterization (04/28/2018); Coronary angioplasty with stent (03/20/2017); Cardiac catheterization (04/27/2015); and Coronary angioplasty with stent. Assessment Assessment: Pt is a 84 y.o. female currently admitted for elevated troponin. Pt has history of freqent falls d/t balance, SOB and dizziness. Pt able to transfer supine to sit with Min A and reports dizziness upon sitting. STS complete with CGA and pt immediately SOB with labored quick breathing. Instructed on pursed lip breathing with fair carryover. Pt ambulated 5' to bedside chair FWW and CGA with increased SOB immediately onset, requries Min A x 1 for walker management. Pt would benefit fromskilled therapy to address these defecits and improve function to prior level. Treatment Diagnosis: generalized weakness Specific Instructions for Next Treatment: once per day on weekends and holidays Therapy Prognosis: Fair Decision Making: Low Complexity Requires PT Follow-Up: Yes Activity Tolerance Activity Tolerance: Patient tolerated evaluation without incident Plan Physical Therapy Plan General Plan: 2 times a day 7 days a week Specific Instructions for Next Treatment: once per day on weekends and holidays Current Treatment Recommendations: Strengthening, ROM, Balance training, Functional mobility training, Transfer training, Endurance training, Gait training, Stair training, Neuromuscular re-education, Pain management, Home exercise program, Therapeutic activities Safety Devices Type of Devices: Call light within reach, Chair alarm in place Restrictions Restrictions/Precautions Restrictions/Precautions: Fall Risk, General Precautions Subjective General Patient assessed for rehabilitation services?: Yes Social/Functional History Social/Functional History Lives With: Spouse Type of Home: House Home Layout: One level Home Access: Stairs to enter with rails Entrance Stairs - Number of Steps: 2 Entrance Stairs - Rails: Right Bathroom Shower/Tub: Tub/Shower unit Bathroom Equipment: Shower chair Home Equipment: Rollator Has the patient had two or more falls in the past year or any fall with injury in the past year?: Yes Receives Help From: Family Prior Level of Assist for ADLs: Independent Prior Level of Assist for Homemaking: Independent Homemaking Responsibilities: Yes Prior Level of Assist for Ambulation: Independent household ambulator, with or without device Prior Level of Assist for Transfers: Independent Active Risk Modeler: No Occupation: Retired Vision/Hearing Vision Vision: Impaired Vision Exceptions: Wears glasses for distance Hearing Hearing: Within Functional Limits Cognition Orientation Overall Orientation Status: Within Functional Limits Objective Temp: 97.8 F (36.6 C) Pulse: 62 Heart Rate Source: Monitor Respirations: 18 SpO2: 100 % O2 Device: None (Room air) BP: (!) 151/59 MAP (Calculated): 90 BP Location: Left upper arm BP Method: Automatic Patient Position: Semi fowlers Observation/Palpation Posture: Fair AROM RLE (degrees) RLE AROM: WFL AROM LLE (degrees) LLE AROM : WFL Strength RLE Strength RLE: WFL Strength LLE Strength LLE: WFL Bed mobility Rolling to Right: Minimal assistance Supine to Sit: Minimal assistance Scooting: Minimal assistance Transfers Sit to Stand: Contact guard assistance Stand to Sit: Contact guard assistance Bed to Chair: Contact guard assistance Ambulation WB Status: fwb Ambulation Surface: Level tile Device: Rolling Walker Assistance: Minimal assistance Quality of Gait: Pt ambulated 5' to bedside chair FWW and CGA with increased SOB immediately onset,requries Min A x 1 for walker management. Balance Posture: Fair Sitting - Static: Good Sitting - Dynamic: Good;- Standing - Static: Fair;+ Standing - Dynamic: +;Fair AM-PAC - Mobility AM-PAC Mobility without Stair Climbing Inpatient How much difficulty turning over in bed?: A Little How much difficulty sitting down on / standing up from a chair with arms?: A Little How much difficulty moving from lying on back to sitting on side of bed?: A Little How much help from another person moving to and from a bed to a chair?: A Little How much help from another person needed to walk in hospital room?: A Little AM-PAC Inpatient Mobility without Stair Climbing Raw Score : 15 AM-PAC Inpatient without Stair Climbing T-Scale Score : 43.03 Mobility Inpatient CMS 0-100% Score: 47.43 Mobility Inpatient without Stair CMS G-Code Modifier : CK Goals Short Term Goals Time Frame for Short Term Goals: 20 days Short Term Goal 1: Pt to tolerate 20 minutes of ther ex to facilitate return to PLOF. Short Term Goal 2: Pt to ambulate 50' with FWW and SBA to increase ambulatory capacity for d/c Short Term Goal 3: Pt to complete transfers with Mod I to demonstrate increased independacne for safety with d/c. Patient Goals Patient Goals : Pt goal to return home Education Patient Education Education Given To: Patient Education Provided Comments: Pt edu: PT POC Therapy Time Individual Concurrent Group Co-treatment Time In 0735 Time Out 0750 Minutes 15 Timed Code Treatment Minutes: 15 Minutes MARLA JOAQUIN PT,DPT Cosigned by Nyasia Byrd APRN - CNP at 03/22/2025 9:46 PM EDT * Analy Johnson APRN - CNP - 03/22/2025 7:46 AM EDT Progress Note SUBJECTIVE: Patient seen for f/u of Recurrent falls. She sitting up in chair and is working with PT. Stated shegets lightheaded when getting up and is SOB. No complaints of pain. Afebrile. ROS: Constitutional: negative for fevers, and negative for chills. Respiratory: positive for shortness of breath, negative for cough, and negative for wheezing Cardiovascular: negative for chest pain, and negative for palpitations Gastrointestinal: negative for abdominal pain, negative for nausea,negative for vomiting, negative for diarrhea, and negative for constipation All other systems were reviewed with the patient and are negative unless otherwise stated in HPI OBJECTIVE: Vitals: Vitals: 03/22/25 0731 BP: (!) 151/59 Pulse: 62 Resp: 18 Temp: 97.8 F (36.6 C) SpO2: 100% Weight - Scale: 38.8 kg (85 lb 8 oz) Height: 160 cm (5' 3 ) Weight Wt Readings from Last 3 Encounters: 03/22/25 38.8 kg (85 lb 8 oz) 03/20/25 38.6 kg (85 lb) 03/02/25 38.6 kg (85 lb) Body mass index is 15.15 kg/m . 24HR INTAKE/OUTPUT: Intake/Output Summary (Last 24 hours) at 03/22/2025 0747 Last data filed at 03/22/2025 0516 Gross per 24 hour Intake 1672 ml Output 350 ml Net 1322 ml Exam: GEN: Awake, alert and oriented x3. EYES: EOMI, pupils equal NECK: Supple. No lymphadenopathy. No carotid bruit CVS: regular rate and rhythm, no audible murmur PULM: CTA, no wheezes, rales or rhonchi, no acute respiratory distress ABD: Bowels sounds normal. Abdomen is soft. No distention. no tenderness to palpation. EXT: no edema bilaterally . No calf tenderness. NEURO: Moves all extremities. Motor and sensory are grossly intact SKIN: No rashes. No skin lesions. Ecchymosis to forehead, left cheek, abrasions to upper and lower extremities Diagnostic Data: Complete Blood Count: Recent Labs 03/20/25 1052 03/21/25 1319 03/22/25 0530 WBC 7.3 9.4 4.5 RBC 3.40* 3.20* 2.57* HGB 9.5* 9.0* 7.2* HCT 29.5* 28.1* 22.9* MCV 86.8 87.8 89.1 MCH 27.9 28.1 28.0 MCHC 32.2 32.0 31.4 RDW 15.9* 16.4* 16.6* PLT 225 237 175 MPV 10.3 10.1 10.3 Last 3 Blood Glucose: Recent Labs 03/20/25 1052 03/21/25 1319 03/22/25 0530 GLUCOSE 121* 107* 82 Comprehensive Metabolic Profile: Recent Labs 03/20/25 1052 03/21/25 1319 03/22/25 0530 NA 135* 134* 136 K 4.4 4.7 4.2 CL 106 102 107 CO2 18* 19* 19* BUN 22 33* 33* CREATININE 1.4* 2.5* 2.0* GLUCOSE 121* 107* 82 CALCIUM 8.4* 8.5* 7.4* BILITOT 0.6 0.5 0.4 ALKPHOS 59 61 50 AST 27 29 26 ALT 12 15 11 Urinalysis: Lab Results Component Value Date/Time NITRU NEGATIVE 03/21/2025 05:05 AM COLORU Yellow 03/21/2025 05:05 AM PHUR 6.0 03/21/2025 05:05 AM PHUR 5.5 06/14/2018 01:10 PM WBCUA 10 TO 20 03/21/2025 05:05 AM RBCUA None 03/21/2025 05:05 AM MUCUS 1+ 06/14/2018 01:10 PM TRICHOMONAS NOT REPORTED 06/14/2018 01:10 PM YEAST NOT REPORTED 06/14/2018 01:10 PM BACTERIA TRACE 03/21/2025 05:05 AM LEUKOCYTESUR TRACE 03/21/2025 05:05 AM UROBILINOGEN Normal 03/21/2025 05:05 AM BILIRUBINUR SMALL 03/21/2025 05:05 AM GLUCOSEU NEGATIVE 03/21/2025 05:05 AM KETUA NEGATIVE 03/21/2025 05:05 AM AMORPHOUS NOT REPORTED 06/14/2018 01:10 PM HgBA1c: No results found for: LABA1C Lactic Acid: Lab Results Component Value Date/Time LACTA 1.6 06/14/2018 12:00 PM LACTA NOT REPORTED 03/07/2017 06:09 PM Troponin: No results for input(s): TROPONINI in the last 72 hours. CRP: No results for input(s): CRP in the last 72 hours. Radiology/Imaging: XR CHEST PORTABLE Final Result 1. No acute findings. 2. Stable enlargement of the heart. 3. Hyperinflated lungs. 4. Blunting of the left and right costophrenic angles due to pleural fluid or pleural thickening. CT FACIAL BONES WO CONTRAST Preliminary Result 1. No acute intracranial abnormality. 2. No acute facial bone fracture. 3. Mild soft tissue swelling along the left lateral aspect of the face. CT Head W/O Contrast Preliminary Result 1. No acute intracranial abnormality. 2. No acute facial bone fracture. 3. Mild soft tissue swelling along the left lateral aspect of the face. CT CSpine W/O Contrast Final Result 1. No acute fracture or subluxation of the cervical spine. 2. Multilevel degenerative changes with likely at least moderate spinal canal stenosis at C4-C5 and C5-C6. ASSESSMENT / PLAN: MEDICAL DECISION MAKING: Primary Problem(s): Recurrent falls Condition is stable Treatment plan: PT OT eval Telemetry monitoring Monitor labs and replace electrolytes Consult palliative care Consult dietitian for malnutrition OTR [employer] evaluation for difficulty swallowing Orthostatic vital signs Imaging: Echo ordered Medications: IV fluids Hold warfarin-decrease in hemoglobin, recurrent falls (scheduled to see heme-onc as an outpatient tomorrow-will consult as an inpatient) Continue Florinef Medication Monitoring / High Risk Medications: none Chronic diastolic CHF Condition is a chronic stable condition Treatment plan: I/O Monitor labs replace electrolytes Imaging: Echo ordered Medications: Continue Toprol KARLEE on CKD Condition is unchanged Treatment plan: Monitor labs-trend kidney function Imaging: no further imaging studies ordered today Medications: Continue IV fluids COPD Condition is a chronic stable condition Treatment plan: Appreciate pulmonology-scheduled as an outpatient tomorrow with Dr. Fairchild PT OT Medications: Continue Singulair, Symbicort/Spiriva and Daliresp Nutrition status: Well developed, well nourished with no malnutrition Proof Press Operator consult initiated I/O Daily weight Monitor Daily intake Nutritional Supplements as tolerated MALNUTRITION ASSESSMENT AND PLAN The following was documented by the Dietitian: I agree with the dietitian's malnutrition assessment. Medical Nutrition Therapy: continue current nutrition therapy Hospital Prophylaxis: DVT: Warfarin Stress Ulcer: H2 Nereyda Disposition: Shared decision making: All test results, treatment options and disposition options were discussed with the patient today Social determinants of health that may impact management: none Code status: Full Code Disposition: Discharge plan is pending [facility] Advanced Care Planning documentation: [x] I have confirmed that the patient's Advance Care Plan is present, Code Status is documented, orsurrogate decision maker is listed in the patient's medical record [If yes , STOP HERE] [] The patient's Advance Care Plan is NOT present because: [] I confirmed today that the patient does not wish or was not able to name a surrogate decision maker or provide and advance care plan. [] Hospice care is currently being provided or has been provided within the calendar year. [] I did NOT confirm today the presence of an Advance Care Plan or surrogate decision maker documented within the patient's medical record. [DOES NOT SATISFY [facility] PERFORMANCE] WEST Boyd CNP , WEST, SIMULATION DEVELOPER-C Hospitalist Medicine 03/22/2025, 7:47 AM Cosigned by Larisa Reardon MD at 03/22/2025 1:54 PM EDT Associated attestation - Larisa Reardon MD - 03/22/2025 1:54 PM EDT Attending Supervising Physician s Attestation Statement I have personally evaluated and examined the patient [id number] in conjunction with the nurse practitioner. I agree with management and disposition of the patient. Examined and Reviewed plan of care with SIMULATION DEVELOPER. Directions and discussion about care and plans. Disposition including length of stay was reviewed. Nutritional status, advanced directive and old records reviewed. In addition, Consultations and pharmacy management including drug therapy was reviewed. Therapy goals along with occupational therapy was reviewed & integrated into management including disposition. The patient was seen examined with the nurse practitioner & all direct care was reviewed with the nurse practitioner at the bedside with the patient. Electronically signed by Larisa Reardon MD * Makayla Smallwood RN - 03/22/2025 7:45 AM EDT Test Baker to bedside to complete morning assessment. Upon entry to room, pt laying in bed, respirations even and unlabored while on room air. Vitals obtained and assessment completed, see flow sheet fordetails. Pt denies needs from financial underwriter at this time. Call light in reach. Bed alarm active.Care ongoing. * Roni Joaquin RD, CANDI - 03/22/2025 6:55 AM EDT Comprehensive Nutrition Assessment Type and Reason for Visit: Initial, Positive nutrition screen, Consult Nutrition Recommendations/Plan: Ensure tid meals Moist/ground foods as needed. Malnutrition Assessment: Malnutrition Status: Severe malnutrition (03/22/25 0838) Context: Acute Illness Findings of the 6 clinical characteristics of malnutrition: Energy Intake: 75% or less of estimated energy requirements for 7 or more days Weight Loss: Greater than 7.5% over 3 months Body Fat Loss: Moderate body fat loss Fat Overlying Ribs, Orbital Muscle Mass Loss: Moderate muscle mass loss Clavicles (pectoralis & deltoids) Fluid Accumulation: No fluid accumulation Director Family Strength: Not Performed Nutrition Assessment: Severe acute malnutrition r/t altered GI status and inadequate nutrient intakes, AEB 9.6% weight losses in last 3 months with moderate fat and muscle losses. Has recurrent esophageal stricture and compromised chewing ability with poorer fitting partials. States using ground meats at home, not needing pureed. Admits she should use an ONS and one was started upon her admission as well. Improving renal indices with iv fluids. Nutrition Related Findings: active b/s. no edema. Wound Type: None Current Nutrition Intake & Therapies: Average Meal Intake: Unable to assess (no PO records) Average Supplements Intake: Unable to assess (no record) ADULT ORAL NUTRITION SUPPLEMENT; Breakfast, Lunch, Dinner; Standard High Calorie/High Protein Oral Supplement ADULT DIET; Dysphagia - Minced and Moist Anthropometric Measures: Height: 160 cm (5' 3 ) [place] Body Weight (IBW): 115 lbs (52 kg) Admission Body Weight: 38.6 kg (85 lb) Current Body Weight: 38.8 kg (85 lb 8 oz), 74.3 % IBW. Weight Source: Bed scale Current BMI (kg/m2): 15.1 Usual Body Weight: 42.9 kg (94 lb 9.6 oz) (3 months ago (?stable in last month)) % Weight Change (Calculated): -9.6 Weight Adjustment For: No Adjustment BMI Categories: Underweight (BMI less than 18.5) Estimated Daily Nutrient Needs: Energy Requirements Based On: Kcal/kg Weight Used for Energy Requirements: Current Energy (kcal/day): 6632-0718 (40-45) Weight Used for Protein Requirements: Current Protein (g/day): 58-78 (1.5-2.0) Method Used for Fluid Requirements: 1 ml/kcal Fluid (ml/day): 1700 Nutrition Diagnosis: Severe malnutrition, in context of acute illness or injury related to inadequate protein-energy intake, Altered GI structure as evidenced by weight loss, muscle loss, loss of subcutaneous fat, criteria as identified in malnutrition assessment Lab Results Component Value Date NA 136 03/22/2025 K 4.2 03/22/2025 CL 107 03/22/2025 CO2 19 (L) 03/22/2025 BUN 33 (H) 03/22/2025 CREATININE 2.0 (H) 03/22/2025 GLUCOSE 82 03/22/2025 CALCIUM 7.4 (L) 03/22/2025 BILITOT 0.4 03/22/2025 ALKPHOS 50 03/22/2025 AST 26 03/22/2025 ALT 11 03/22/2025 LABGLOM 24 (L) 03/22/2025 GFRAA >60 05/19/2022 No results found for: LABA1C No results found for: VITD25 Nutrition Interventions: Food and/or Nutrient Delivery: Continue Current Diet, Continue Oral Nutrition Supplement Nutrition Education/Counseling: Education/Counseling initiated Coordination of Nutrition Care: Continue to monitor while inpatient Plan of Care discussed with: patient Goals: Goals: Meet at least 75% of estimated needs, by next RD assessment Type of Goal: New goal Previous Goal Met: New Goal Nutrition Monitoring and Evaluation: Behavioral-Environmental Outcomes: None Identified Food/Nutrient Intake Outcomes: Food and Nutrient Intake Physical Signs/Symptoms Outcomes: Biochemical Data, Weight Discharge Planning: Too soon to determine Roni Joaquin RD, CANDI Contact: [id number] * Aleksandr Ernst RN - 03/22/2025 5:05 AM EDT Test Baker and Liz Murrell assisted patient to the bedside commode with front wheel walker at this time and patient tolerated fairly well. Test Baker assisted patient back to bed, patient states no needs, call light in reach, bed alarm on. Patient urine sample sent down to lab at this time. * Aleksandr Ernst RN - 03/21/2025 9:30 PM EDT Patient resting in bed with eyes closed, respirations even and unlabored, bed alarm on, plan of care ongoing. * Tony Pelaez [facility] - 03/21/2025 6:53 PM EDT Pharmacy Note Renal Dose Adjustment Leyla Lambert is a 84 y.o. female. Pharmacist assessment of renally cleared medications. Recent Labs 03/20/25 1052 03/21/25 1319 BUN 22 33* Recent Labs 03/20/25 1052 03/21/25 1319 CREATININE 1.4* 2.5* Estimated Creatinine Clearance: 10 mL/min (A) (based on SCr of 2.5 mg/dL (H)). Height: Ht Readings from Last 1 Encounters: 03/21/25 1.6 m (5' 3 ) Weight: Wt Readings from Last 1 Encounters: 03/21/25 38.6 kg (85 lb) The following medication dose has been adjusted based upon renal function per P&T Guidelines: Famotidine adjusted to 20mg daily -Tony Pelaez PharmD, [facility] 03/21/2025 6:53 PM * Sujey Reeves RN - 03/21/2025 6:48 PM EDT Test Baker reviewed all home medications with patient. Patient did say she took her coumadin today and she was to take 5mg everyday until Thursday per the coumadin clinic at this facility. Notified primarynurse OMAR Mccarthy. * Aleksandr Ernst RN - 03/21/2025 6:45 PM EDT Patient shift assessment and vitals completed at this time as charted. Patient is alert and oriented x4 and currently denies pain. Patient navigator completed by Brock NELSON and medication list completed by Sujey NELSON. Patient assisted with getting comfortable in bed. Bed alarm on, call light is on, plan of care is ongoing. * Mahi Cordova RN - 03/21/2025 5:38 PM EDT [facility] Report received from ED nurse at bedside. Vitals and assessment complete at this time. See flowsheets for details. Warm blankets given to the patient. Ice water given to the patient. Patient denies further needs. Call light is within reach. Care ongoing. [facility] Discharge instructions* Discharge Instructions* Ashish Carpio MD - 03/20/2025 2:44 PM EDT Please continue with your inhalers/bronchodilator inhalers as previously advised and prescribed Please contact your physician and the Coumadin clinic concerning any adjustments in your INR/Coumadin tablets Please have your laboratory studies including your BNP reevaluated and rechecked by your healthcareprovider * Attachments The following attachments cannot be sent through Care Everywhere. * Anemia ([place]an) * COPD: Asthma ([place]) * Skin Tears ([place]) documented [facility]Bon [facility] History of Present illness Narrative* Timothy Penn, DO - 03/08/2025 10:30 AM EDT Images from the original note were not included. Leyla Lambert presents today for Evaluation in regards to shortness of breath. The patient does have a history of COPD. She is accompanied by her at today's office visit. Patient states thatshe has been on Trelegy for approximately 1 year. She initially stated she was unsure whether this offered any relief. However upon further questioning she states that she has noticed improvement of her breathing with use of Trelegy. She does currently use albuterol on an as needed basis as well. She has noticed significant worsening of her breathing over last month or so. Her does concurrent that she has been more short of breath recently. She does also complain of some chest discomfort. She states that this does her with exertion and is relieved with rest as well. She does have somechest pressure at baseline but this worsens with exertion. She did undergo PFTs and x-ray prior to today's office visit. She denies any current complaints of fevers, chills, or sweats. She states sheis scheduled to have an EGD performed in the next week to have dilation. This is to be done at [facility]. The patient was quite dyspneic with minimal exertion at the office visit today. Shedenied any other complaints at this time. She does continue to follow with Hematology given a history of anemia, Cardiothoracic surgery given a history of aortic dissection in the past, and Cardiology. Allergies Allergen Reactions Holiday Itching, Other, Unknown and Rash welts Other reaction(s): Welts Other reaction(s): Welts welts Droxidopa Shortness of breath Gold-Containing Drug Products GI intolerance, Itching, Other, Rash and Unknown itching Other reaction(s): Intolerance itching Other reaction(s): Welts itching Holiday Nickel welts Other reaction(s): Welts Other reaction(s): [...] reaction(s): nausea, severe Other reaction(s): Abdominal Pain Levonorgestrel-Ethinyl Estrad Cough, Itching and Runny nose Latex Current Outpatient Medications Medication Sig Dispense Refill albuterol HFA 90 mcg/act inhaler Inhale 2 puffs every 4 (four) hours if needed for shortness of breath or wheezing 18 g 2 atorvastatin (Lipitor) 40 MG tablet Take 1 tablet (40 mg) by mouth at bedtime 90 tablet 3 carbidopa-levodopa (Sinemet) 25-100 MG tablet Take 1 tablet every day by oral route at bedtime. celecoxib (CeleBREX) 200 MG capsule Take 1 capsule (200 mg) by mouth in the morning and 1 capsule (200 mg) before bedtime. 180 capsule 3 cephalexin (Keflex) 500 MG capsule Take 500 mg by mouth in the morning and 500 mg in the evening and 500 mg before bedtime. clobetasol (Temovate) 0.05 % ointment Apply to affected areas, up to twice a day when flared, do not use one the face, groin, or underarms, 30 day supply 60 g 11 cloNIDine (Catapres) 0.2 MG tablet TAKE 1 TABLET BY MOUTH NEEDED FOR SYSTOLIC BLOOD PRESSURE GREATER THAN OR EQUAL TO 170 SYSTOLIC, UP TO THREE TIMES A DAY. clopidogrel (Plavix) 75 MG tablet Take 1 tablet (75 mg) by mouth Daily 90 tablet 0 cyanocobalamin (Vitamin B-12) 1000 MCG tablet Take 1,000 mcg by mouth in the morning. ferrous sulfate (Fe Tabs) 325 (65 Fe) MG EC tablet Take 1 tablet (325 mg) by mouth in the morning and 1 tablet (325 mg) at noon and 1 tablet (325 mg) in the evening. Take with meals. Do not crush, chew, or split. 90 tablet 3 fludrocortisone (Florinef) 0.1 MG tablet Take 2 tablets (0.2 mg) by mouth Daily 180 tablet 3 furosemide (Lasix) 20 MG tablet Take 1 tablet (20 mg) by mouth Daily 30 tablet 11 hydrALAZINE (Apresoline) 25 MG tablet Take 25 mg by mouth in the morning and 25 mg before bedtime. levothyroxine (Synthroid, Levoxyl) 100 MCG tablet Take 1 tablet (100 mcg) by mouth Daily 30 tablet 5 losartan (Cozaar) 50 MG tablet metoprolol succinate XL (Toprol-XL) 100 MG 24 hr tablet Take 1 tablet (100 mg) by mouth Daily 30 tablet 11 montelukast (Singulair) 10 MG tablet Take 1 tablet (10 mg) by mouth at bedtime 30 tablet 11 omeprazole (PriLOSEC) [address] capsule Take 1 capsule (40 mg) by mouth in the morning. Take before meals. Do not crush or chew. 30 capsule 3 oxybutynin XL (Ditropan XL) 10 MG 24 hr tablet Take 1 tablet (10 mg) by mouth Daily Do not crush, chew, or split. 30 tablet 11 Roflumilast 500 MCG tablet Take 1 tablet by mouth once daily 30 tablet 0 rOPINIRole (Requip) 2 MG tablet Take 1 tablet (2 mg) by mouth at bedtime 90 tablet 3 traZODone (Desyrel) 150 MG tablet Take 1 tablet (150 mg) by mouth at bedtime 90 tablet 3 Trelegy Ellipta 100-62.5-25 MCG/ACT aerosol powder INHALE 1 PUFF ONCE DAILY 60 each 0 warfarin (Coumadin) 5 MG tablet 5 mg 1 (one) time each day Take as directed per After Visit Summary. No current facility-administered medications for this visit. No past medical history on file. Past Surgical History: Procedure Laterality Date CT ANGIOGRAM ABDOMEN PELVIS 11/23/2023 CT ANGIOGRAM ABDOMEN PELVIS 11/23/2023 CT ANGIOGRAM ABDOMEN PELVIS 11/27/2023 CT ANGIOGRAM ABDOMEN PELVIS 11/27/2023 CT ANGIOGRAM ABDOMEN PELVIS 11/25/2023 CT ANGIOGRAM ABDOMEN PELVIS 11/25/2023 CT ANGIOGRAM ABDOMEN PELVIS 12/20/2023 CT ANGIOGRAM ABDOMEN PELVIS 12/20/2023 CT ANGIOGRAM ABDOMEN PELVIS 06/30/2024 CT ANGIOGRAM ABDOMEN PELVIS 06/30/2024 CT ANGIOGRAM HEART CORONARY 05/25/[address] ANGIOGRAM HEART CORONARY 02/15/2020 CT ANGIOGRAM TAVR 02/15/2020 CT ANGIOGRAM HEART CORONARY 11/23/2023 CT ANGIOGRAM TAVR 11/23/2023 CT ANGIOGRAM HEART CORONARY 11/27/2023 CT ANGIOGRAM TAVR 11/27/2023 CT ANGIOGRAM HEART CORONARY 11/25/2023 CT ANGIOGRAM TAVR 11/25/2023 CT ANGIOGRAM HEART CORONARY 12/20/2023 CT ANGIOGRAM TAVR 12/20/2023 CT ANGIOGRAM HEART CORONARY 12/30/2023 CT ANGIOGRAM TAVR 12/30/2023 CT ANGIOGRAM HEART CORONARY 01/14/2024 CT ANGIOGRAM TAVR 01/14/2024 CT ANGIOGRAM HEART CORONARY 06/30/2024 CT ANGIOGRAM TAVR 06/30/2024 CT ANGIOGRAM HEART CORONARY 12/09/2024 CT ANGIOGRAM TAVR 12/09/2024 IR ANGIOGRAM UPPER EXTREMITY LEFT Left 12/04/2023 IR ANGIOGRAM UPPER EXTREMITY LEFT 12/04/2023 IR CVC PICC 06/22/2018 IR CVC PICC IR INJECTION EPIDURAL STEROID 05/21/2018 IR INJECTION EPIDURAL STEROID IR INJECTION EPIDURAL STEROID 05/15/2018 IR INJECTION EPIDURAL STEROID No family history on file. Social History Tobacco Use Smoking status: Never Smokeless tobacco: Never Substance Use Topics Alcohol use: Not on file BP 112/72 Pulse 92 Wt 83 lb SpO2 99% BMI 14.70 kg/m Exam: Heart: regular rate Lungs: Diminished but clear to auscultation bilaterally, no wheezes/rales/rhonchi, respiratory distress noted with minimal exertion such as standing to get weighed on the scale Extremities: no edema noted, no visible rashes Neuro: alert, oriented x3 Imaging Reviewed: Images and report of chest x-ray from November 2024 reviewed-- hyperinflated lung similar to previous without evidence of acute pulmonary pathology PFT's from January 2025 reviewed--FVC 2.35 L ( 122 %), FEV1 1.43 L ( 102 %), ratio 61 %, no significant bronchodilator response, hyperinflation present, air trapping present, normal DLCO Assessment/Plan: COPD -- we discussed that she does have findings consistent with COPD. She is currently using Trelegy once daily and albuterol as needed. She has noticed significant increase in her symptoms over last month or so. She does also notice chest heaviness/ pressure that is present all the time at worsens with exertion as well. She does have a known cardiac history. At this time I did express to the patient and her multiple times during the office visit that I do feel she needs to be further evaluated from a cardiac standpoint and given her current symptoms I do feel she would benefit from evaluation in the hospital. She was hesitant and reluctant to go to the emergency department. She stated that she does have an EGD scheduled for the next few days. I discussed with her that if she goes to the appointment for her EGD and has as many symptoms as she had with me today and I do not feelthey will perform the procedure and they will send her to the emergency department there. She stated to me that she will take her chances . I did also communicate with the primary care provider in regards to my concerns that she does need further evaluation from a cardiac standpoint and I did encourage her to go to the hospital. At this time she will continue with Trelegy and albuterol. I do notfeel that her lungs are the etiology of her current symptoms. I do have concerns strongly that thisis cardiac etiology. The patient and her hives in understand my concerns however remain hesitant mireille evaluated at the hospital further. There has been conversation and other provider's notes in regards to stress test, however I do not see that this has been ordered. Shortness of breath -- patient did have significant symptoms at the evaluation today. I did encourage her to get evaluated further in the hospital, however she was reluctant. I do have concerns that she is a cardiac etiology for her current complaints of shortness of breath and chest discomfort. Follow up in about 3 months (around 06/08/2025) for COPD. Timothy Penn DO documented in this encounterParkland Health [id number] History of Present illness Narrative* HEMAL De Dios - 02/21/2025 1:45 PM EDT Images from the original note were not included. Orthopedic Office note: NAME: Leyla Lambert : 1940 (NEW PT) RT KNEE PAIN - HX OF FALLS. XRAY TODAY EPIC 02/21/25 HX OF 10 SURGERIES TO RT KNEE. HAS HAD 2 RT TKA'S AND HAD INFECTIONS. FIRST SURGERY WAS [facility], THE REST WERE AT [facility]. PRESENTS WITH WALKER. HAS HAD MULTIPLE FALLS. PAIN DIFFUSE IN KNEE. PAIN MOSTLY WITH WB. NO PAIN MEDS. +POPPING. +GIVING OUT. TINGLING ANTERIOR KNEE. DOES NOT WAKE AT HS, HAS TO SLEEP ON RT SIDE. Physical Exam General Appearance: Normal. Respiratory: No acute distress. Musculoskeletal: Right knee inspection reveals mild effusion, healing scab to medial inferior anterior knee, no surrounding erythema, warmth, or drainage. Mild effusion appears chronic. Postsurgical incision is present on the anterior lateral aspect of the knee from mid femur to the proximal tibia.Compartments are soft. No pain with gentle MCL and LCL stressing suspect post with revision. Tenderness is mostly to the lateral aspect, palpable patellofemoral crepitus with certain movements but patella tracking not really felt well for clinical exam, straight leg raise, however is intact. She has 5 degree flexion contracture and flexion to 105 degrees with tightness noted on end range of motion. There is no pain with hip internal and external rotation. Ankle dorsiflexion, plantar flexion is 5/5. There are no signs of infection on visual inspection, but she has had multiple surgeries on theright knee in the past. Skin: Warm and dry, no rash. Healing abrasion Neurological: Normal. Orders Placed This Encounter Procedures XR knee 1 or 2 views right Reason for exam:: pain Procedures Results - Imaging: - X-ray of the right knee (02/21/2025): - Stem well positioned without evidence of loosening - Knee appears stable ICD-10-CM 1. History of right knee joint replacement Z96.651 2. Acute pain of right knee M25.561 XR knee 1 or 2 views right Assessment & Plan Right knee pain She has a history of multiple falls over the past 6 to 12 months, which may have exacerbated her knee condition. However, her knee appears stable on today's x- rays, although no comparison films are available. The x-ray performed today was discussed at bedside, showing that the stem appears well positioned without evidence of loosening. Her knee examination reveals minimal bone left for her patellofemoral articulation, but she demonstrates an intact straight leg raise and satisfactory quad and hamstring flexion and extension. She uses a rollator for extended mobility but can stand and bear weight without significant difficulty. Given her history of knee revisions, it is recommended to compare these x-rays with those taken by her specialist at the [facility] who performed her revisionsurgeries. Diagnostic plan: Compare today's x-rays with those taken by her specialist at the [facility]. Treatment plan: Patient education on the importance of comparing x-rays, continued use of rollator for extended mobility. Clinical decision making: Given her history of knee revisions, comparing x-rays is crucial to ensure proper assessment of her knee condition. Follow-up: Next scheduled visit to review x-ray comparisons. Questions answered in laymen terms at the bedside. The diagnosis, home exercise plan and any ongoing restrictions/ recommendations reviewed. If unable to be reached in office, I recommend evaluation at nearest Emergency Room if any symptoms worsened or new symptoms develop for requiring urgent evaluation. Visit was preformed using [employer]-automatic pilot mechanic speech recognition. documented in this encounterParkland Health [id number] History of Present illness Narrative* Duoglas Will MD - 02/20/2025 2:44 PM EDTAssociated Problem(s): SOB (shortness of breath) Continued symptoms and unclear etiology. Follow with specialists. * Douglas Will MD - 02/20/2025 2:43 PM EDTAssociated Problem(s): Orthostatic hypotension BP stable and continue medication. * Douglas Will MD - 02/20/2025 2:43 PM EDTAssociated Problem(s): MDD (major depressive disorder), recurrent episode, moderate (HCC) Symptoms controlled with trazodone and continue. * Douglas Will MD - 02/20/2025 2:43 PM EDTAssociated Problem(s): Iron 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 dietary iron intake Resume iron supplement. Follow with hematology. * Douglas Will MD - 02/20/2025 2:42 PM EDTAssociated Problem(s): COPD (chronic obstructive pulmonary disease) (HCC) Continued SOB but normal breath sounds. Follow with pulmonology and continue inhalers. * Douglas Will MD - 02/20/2025 2:42 PM EDTAssociated Problem(s): CAD in [place] artery Continued SOB and stress test ordered. Follow up with cardiology. * Douglas Will MD - 02/20/2025 1:45 PM EDT Images from the original note were not included. Subjective Patient ID: Leyla Lambert is a 84 y.o. female who presents for Follow-up (F/up). Follow up SOB, anemia, COPD, depression, and low BP. SOB unchanged over the past few months. Seen by cardiology and ordered stress test to assess for ischemia. Seen by hematology and labs ordered. Reports stopped iron and labs showed low iron. COPD stable. Continued SOB and fatigue with exertion. Mild cough and sputum worse in am. Mood controlled with trazodone. Not down or sad and feels happier.Sleeping well with medication. BP stable today. Not as lightheaded when up and moving. Seen by cardiology and stable. Review of Systems Respiratory: Negative for cough, shortness of breath and wheezing. Cardiovascular: Negative for chest pain and palpitations. Gastrointestinal: Negative for abdominal pain, diarrhea, nausea and vomiting. Genitourinary: Negative for dysuria. Objective Physical Exam Constitutional: General: She is not in acute distress. Appearance: Normal appearance. HENT: Head: Normocephalic. Right Ear: Tympanic membrane normal. Left Ear: Tympanic membrane normal. Eyes: Extraocular Movements: Extraocular movements intact. Pupils: Pupils are equal, round, and reactive to light. Cardiovascular: Rate and Rhythm: Normal rate and regular rhythm. Heart sounds: No murmur heard. No friction rub. No gallop. Pulmonary: Effort: Pulmonary effort is normal. Breath sounds: Normal breath sounds. No wheezing, rhonchi or rales. Abdominal: General: Bowel sounds are normal. There is no distension. Palpations: Abdomen is soft. Tenderness: There is no abdominal tenderness. There is no guarding or rebound. Musculoskeletal: Cervical back: Neck supple. Right lower leg: No edema. Left lower leg: No edema. Neurological: Mental Status: She is alert. Assessment/Plan Problem List Items Addressed This Visit CAD in [place] artery Continued SOB and stress test ordered. Follow up with cardiology. COPD (chronic obstructive pulmonary disease) (HCC) Continued SOB but normal breath sounds. Follow with pulmonology and continue inhalers. Orthostatic hypotension BP stable and continue medication. Relevant Medications fludrocortisone (Florinef) 0.1 MG tablet MDD (major depressive disorder), recurrent episode, moderate (HCC) Symptoms controlled with trazodone and continue. Relevant Medications traZODone (Desyrel) 150 MG tablet SOB (shortness of breath) - Primary Iron 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 dietary iron intake Resume iron supplement. Follow with hematology. documented in this encounterParkland Health [id number] History of Present illness Narrative* Berenice Rudolph APRN-BIOGEOGRAPHER - 02/09/2025 2:45 PM EDT GENERAL SURGERY CLINIC FOLLOW UP VISIT CLINIC DATE: 05/30/24 NAME: Leyla Lambert, 84 y.o. Virtual or Telephone Consent An interactive audio and video telecommunication system which permits real time communications between the patient (at the originating site) and provider (at the distant site) was utilized to providethis telehealth service. Verbal consent was requested and obtained from Leyla Lambert on this date, 02/09/25 for a telehealthvisit and the patient's location was confirmed at the time of the visit. DATE OF SURGERY: 03/31/24 SURGICAL PROCEDURE: EGD w/Dilation 100 units total Botox Inject @ [place] [employer] Object Removal in Cardia EXTRA PROCEDURES: N/A COMPLICATIONS DURING ADMISSION: None THIS VISIT WEIGHT / BMI: 104 LBS/ BMI: 18.42 Wt Readings from Last 1 Encounters: 05/30/24 47.2 kg (104 lb) BMI Readings from Last 1 Encounters: 05/30/24 18.42 kg/m WEIGHT / BMI HX: Wt Readings from Last 3 Encounters: 05/30/24 47.2 kg (104 lb) 04/11/24 48.1 kg (106 lb) 03/31/24 46.6 kg (102 lb 11.8 oz) BMI Readings from Last 3 Encounters: 05/30/24 18.42 kg/m 04/11/24 18.78 kg/m 03/31/24 18.20 kg/m SURGEON: Dr. Nolan Julio PRESENTING TODAY FOR General Surgery Post-Op FUV: is a 84 y.o. female. Time Since proceedure: 8 MOS. Self verbalizes concerns: Patient states that her problems with swallowing started last couple days. She cannot swallow neither food nor water. She can eat very small bites. She has started loosing weight again, and is down to 90 lbs. She is not drinking enough. Her last urine output was today. Last BM yesterday. She regurgitates water, she states that water is the hardest to swallow. No c/o heartburn. No other complaints. CURRENT SYMPTOMS: Abdominal Pain: No Bloating: No Constipation: No Diarrhea: Yes Hiccups: No Nausea/Vomiting: No DIET HISTORY: Carbonated Beverages: Yes Caffeinated Beverages: Yes Fluid Intake: 20 oz/day GERD - Health Related Quality of Life Questionnaire (GERD- HRQL) On PPI: Famotidine 40 mg How bad is the heartburn? 0 = No symptoms Heartburn when lying down? 0 = No symptoms Heartburn when standing up? 0 = No symptoms Heartburn after meals? 0 = No symptoms Does heartburn change your diet? 0 = No symptoms Does heartburn wake you from sleep? 0 = No symptoms Do you have difficulty swallowing? 3 Do you have pain with swallowing? 2 = Symptoms noticeable and bothersome but not every day If you take medication, does this affect your daily life? 0 = No symptoms How bad is the regurgitation? 3 = Symptoms bothersome every day Regurgitation when lying down? 2 = Symptoms noticeable and bothersome but not every day Regurgitation when standing up? 3 = Symptoms bothersome every day Regurgitation after meals? 3 = Symptoms bothersome every day Does regurgitation change your diet? 1 = Symptoms noticeable but not bothersome Does regurgitation wake you from sleep? 0 = No symptoms How satisfied are you with your present condition? Dissatisfied Total score (calculated by summing the individual scores of questions 1-15): 14 Greatest possible score 75 (worst symptoms). Lowest possible score 0 (no symptoms). Heartburn score (calculated by summing the individual scores of questions 1-6): 0 Worst heartburn symptoms: 30. No heartburn symptoms: 0. Score less than or equal to 12 with each individual question not exceeding 2 indicate heartburn elimination. Regurgitation score (calculated by summing the individual scores of questions 10-15): 12 Worst regurgitation symptoms: 30. No regurgitation symptoms: 0. Score less than or equal to 12 with each individual question not exceeding 2 indicate regurgitationelimination. PROVIDER LAST IMPRESSION VISIT NOTE 05/30/24 - 2 MOS. Self verbalizes concerns: none. Weight not dropping . Swallowing better. Have times when can't swallow. 04/11/24: Leyla Lambert IS A 83 y.o. female with Leyla Lambert IS A 83 y.o. female with 80 yo female being sentto be evaluated for LPR. she has been treated for fungal esophagitis and with this . She also was noted to have some abnormalities on her modified barium swallow. EMOT shows a high pressure area between the les and hiatus. The esophagram is normal. EGD shows a hiatal hernia. She also has an infection in her knee that is being treated for abs. I suspect the biggest issue is poor clearance from thehiatal hernia and we see the high pressure between the LES and the hiatus. It seems from the shehas poor clearance but minimal reflux. We discussed fixing the hiatal hernia to improve the clearance and get rid of the high pressure zone. She also notes excess saliva when she eats. this all speaks to poor clearance. We discussed this at length. All qeusitons were answered. She has a knee infection that needs to be cleared first. She is seeing the orthopod tomorrow. She is having trouble eating. hopefully we can proceed in February. 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 That was when I last saw her in 2020. 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 The patient did not have any resolution of symptoms and was dilated several months later. She then had a thoracic aortic dissection that was managed by vascular with a TEVAR. During our visittoday the patient states that she is very dizzy. Her blood pressure is high. She notes that she does not use any of her tube feeds despite having a G-tube because it gives her severe diarrhea. The patient does not know the formula she is on. She also notes that when she spits up a lot of the problem is foamy. In my discussions with her it is unclear whether her symptoms are at the UES or at the lower esophagus. She has had multiple esophagram's at outside hospitals and we will try to get them transferred into our system. I also like to get a modified barium swallow for further evaluation. I had extensive discussion with her and her as I was very concerned about them driving 3 hours home. I also am not able to get her on my schedule electively for a couple of weeks for an endoscopyand possible dilation. The patient notes that the dilations in the past have not helped. She reportedly did not have a hiatal hernia repair at the time of her robotic myotomy and will try to get the operative report. 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 Wewill look for this more when I do her endoscopy. After last visit hospitalized and was eating more by time of discharge. Suing tube feeds once/day. Weight is up and ate more at the buffet. She loks much healthier and and eating wwatermelon and tomatoes. She enjoys the buffet. PLAN: Chew well and eat slowly Only doing tube feeds once/day Try metamucil or benefiber to help bulk up the diarrhea from the tube feeds. Eat as much as you can. We may need to stretch you again. Let's do a virtual visit in a month Try to do the tube feeds twice/day. Eat 4-5 times/day. CURRENT MEDICATIONS: Current Outpatient Medications Medication Sig Dispense Refill acetaminophen (Tylenol) 500 mg tablet Take 2 tablets (1,000 mg) by mouth 3 times a day. apixaban (Eliquis) 2.5 mg tablet Take 1 tablet (2.5 mg) by mouth twice a day. azelastine (Astelin) 137 mcg (0.1 %) nasal spray Administer 2 sprays into each nostril 2 times a day. calcium carbonate (Tums) 200 mg calcium chewable tablet Chew 1 tablet (500 mg) twice a day. carbidopa-levodopa (Sinemet) 25-100 mg tablet 1 tablet. celecoxib (CeleBREX) 200 mg capsule Take 1 capsule (200 mg) by mouth twice a day. clopidogrel (Plavix) 75 mg tablet Take 1 tablet (75 mg) by mouth once daily. famotidine (Pepcid) 40 mg tablet fludrocortisone (Florinef) 0.1 mg tablet Take 1 tablet every day by oral route for 90 days. fluticasone (Flonase) 50 mcg/actuation nasal spray 2 sprays once daily. furosemide (Lasix) 20 mg tablet Take 1 tablet (20 mg) by mouth once daily. hydrALAZINE (Apresoline) 25 mg tablet every 8 hours. levothyroxine (Tirosint) 112 mcg capsule Take 1 capsule (112 mcg) by mouth once daily. metoprolol succinate XL (Toprol-XL) 100 mg 24 hr tablet Take 1 tablet (100 mg) by mouth once daily. montelukast (Singulair) 10 mg tablet Take 1 tablet (10 mg) by mouth once daily. roflumilast (Daliresp) 500 mcg tablet Take 1 tablet (500 mcg) by mouth once daily. traZODone (Desyrel) 150 mg tablet Take 1 tablet every day by oral route at bedtime. Trelegy Ellipta 100-62.5-25 mcg blister with device Inhale 1 puff once daily. No current facility-administered medications for this visit. 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) Complex regional pain syndrome affecting both upper arms Obstructive sleep apnea syndrome Pulmonary hypertension (Multi) Lung mass Shy-Drager syndrome (Multi) Penetrating ulcer of aorta Asthma CHF (congestive heart failure) Chronic heart failure with preserved ejection fraction (HFpEF) Chronic kidney disease Orthostatic hypotension Stage 2 moderate COPD by GOLD classification (Multi) Chronic pancreatitis (Multi) Coronary atherosclerosis Cyst of left kidney Depressive disorder Difficulty walking Diverticular disease Essential hypertension, benign Recurrent falls Gastro-esophageal reflux disease with esophagitis Gastroparesis Genetic susceptibility to other disease History of cardiac pacemaker in situ History of cardiovascular disorder History of thromboembolism of vein Supine hypertension Mixed hyperlipidemia Hypothyroidism Incontinence Iron deficiency anemia MDD (major depressive disorder), recurrent episode, moderate Infection of prosthetic joint Obesity with body mass index 30 or greater Pacemaker Paroxysmal atrial fibrillation (Multi) Parkinson's disease Persistent insomnia Physical deconditioning Prediabetes Presence of stent in coronary artery Primary osteoarthritis of both knees Prosthetic joint loosening Restless legs syndrome Rosacea PAST SURGICAL HISTORY: Past Surgical History: Procedure Laterality Date CARDIAC PACEMAKER PLACEMENT 03/02/2017 COLECTOMY PARTIAL / TOTAL 03/20/2021 Laparoscopic partial COLONOSCOPY 03/20/2021 CORONARY STENT PLACEMENT 03/10/2008 LAD x2 ESOPHAGOGASTRODUODENOSCOPY 03/20/2021 ESOPHAGOGASTRODUODENOSCOPY W/ PEG 01/16/2024 ESOPHAGOSCOPY / EGD 03/30/2024 W DILATION HYSTERECTOMY 06/20/2020 LAPAROSCOPY ESOPHAGOGASTRIC FUNDOPLASTY HYBRID 11/24/2022 DAVINCI ESOPHAGOMYOTOMY HELLER WITH TOUPET FUNDOPLICATION LYMPH NODE BIOPSY 03/03/2023 INGUINAL MASTECTOMY Bilateral 06/20/2020 THORACIC AORTA STENT 11/28/2023 Endovascular repair TOTAL KNEE ARTHROPLASTY 03/20/2021 FAMILY HISTORY: No family history on file. SOCIAL HISTORY: Social History Socioeconomic History Marital status: Spouse name: Not on file Number of children: Not on file Years of education: Not on file Highest education level: Not on file Occupational History Not on file Tobacco Use Smoking status: Never Smokeless tobacco: Never Substance and Sexual Activity Alcohol use: Not on file Drug use: Not on file Sexual activity: Not on file Other Topics Concern Not on file Social History Narrative Not on file Social Drivers of Health Financial Resource Strain: Low Risk (03/28/2024) Overall Financial Resource Strain (CARDIA) Difficulty of Paying Living Expenses: Not very hard Food Insecurity: No Food Insecurity (01/15/2024) [facility] Hunger Screening Within the past 12 months we worried whether our food would run out before we got money to buy more.: Never True Within the past 12 months the food we bought just didn't last and we didn't have money to get more.: Never True Transportation Needs: No Transportation Needs (03/28/2024) PRAPARE - Transportation Lack of Transportation (Medical): No Lack of Transportation (Non-Medical): No Physical Activity: Not on file Stress: No Stress Concern Present (05/21/2023) [facility] [place] [facility] - Occupational Stress Questionnaire Feeling of Stress : Not at all Social Connections: Unknown (05/21/2023) [facility] Social Connection and Isolation Panel [NHANES] Frequency of Communication with Friends and Family: More than three times a week Frequency of Social Gatherings with Friends and Family: Not on file Attends Quaker Services: Not on file Active Member of Clubs or Organizations: Not on file Attends Club or Organization Meetings: Not on file Marital Status: Not on file Intimate Partner Violence: Unknown (10/08/2023) Received from [facility] [place] Safety & Environment Fear of Current or Ex-Partner: Not on file Emotionally Abused: Not on file Physically Abused: Not on file Sexually Abused: Not on file Physically or Sexually Abused: Not on file Housing Stability: Low Risk (03/28/2024) Housing Stability Vital Sign Unable to Pay for Housing in the Last Year: No Number of Times Moved in the Last Year: 1 Homeless in the Last Year: No ALLERGIES: Allergies Allergen Reactions Holiday Itching, Other, Unknown and Rash Other reaction(s): Welts welts Droxidopa Shortness of breath Latex Itching, Other and Rash Patient states allergic to Latex Patient states allergic to Latex Other reaction(s): Welts Patient states allergic to Latex Nickel Hives, Itching, Other and Rash Other reaction(s): Welts Acetaminophen-Codeine Unknown, GI intolerance, GI Upset, Nausea Only and Other Other reaction(s): Abdominal Pain Codeine GI intolerance, Unknown, Nausea Only and Other Other reaction(s): nausea, severe Acetaminophen-codeine Other reaction(s): nausea, severe Acetaminophen-codeine Other reaction(s): nausea, severe Other reaction(s): Abdominal Pain Levonorgestrel-Ethinyl Estrad Cough, Itching and Runny nose Other Other Annotation - [id number]: Nickel, Holiday, Gold Compounding Gold Au 198 Unknown, Itching, Other and Rash Other reaction(s): Welts itching Gold Keratinate Unknown, Itching, Other and Rash itching Holiday Nickel welts Other reaction(s): Welts Other reaction(s): Intolerance itching Gold Sodium Thiomalate (Bulk) Itching, Other and Rash Other reaction(s): Welts REVIEW OF SYSTEMS: + unable to swallow solids and fluids Negative unless specified on HPI PHYSICAL EXAM There were no vitals taken for this visit. Not performed IMPRESSION: Leyla Lambert IS A 84 y.o. female joselin Lambert IS A 83 y.o. female with Leyla Lambert IS A83 y.o. female with 80 yo female being sent to be evaluated for LPR. she has been treated for fungal esophagitis and with this . She also was noted to have some abnormalities on her modified barium swallow. EMOT shows a high pressure area between the les and hiatus. The esophagram is normal. EGD shows a hiatal hernia. She also has an infection in her knee that is being treated for abs. I suspect the biggest issue is poor clearance from the hiatal hernia and we see the high pressure between the LES and the hiatus. It seems from the HH she has poor clearance but minimal reflux. We discussed fixing the hiatal hernia to improve the clearance and get rid of the high pressure zone. She also notesexcess saliva when she eats. this all speaks to poor clearance. We discussed this at length. All qeusitons were answered. She has a knee infection that needs to be cleared first. She is seeing the orthopod tomorrow. She is having trouble eating. hopefully we can proceed in February. 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 That was when I last saw her in 2020. 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 The patient did not have any resolution of symptoms and was dilated several months later. She then had a thoracic aortic dissection that was managed by vascular with a TEVAR. During our visit today the patient states that she is very dizzy. Her blood pressure is high. She notes that she does not use any of her tube feeds despite having a G-tube because it gives her severe diarrhea. The patient does not know the formula she is on. She also notes that when she spits up a lot of the problem is foamy. In my discussions with her it is unclear whet her her symptoms are at the UES or at the lower esophagus. She has had multiple esophagram's at outside hospitals and we will try to get them transferred into our system. I also like to get a modified barium swallow for further evaluation. I had extensive discussion with her and her as I was very concerned about them driving 3 hours home. I also am not able to get her on my schedule electively for a couple of weeks for an endoscopy and possible dilation. The patient notes that the dilations in the past have not helped. She reportedly did not have a hiatal hernia repair at the time of her robotic myotomy and will try to get the operative report. When I had seen her before I did thinkthat her issues were more EGJ outflow obstruction from a hiatal hernia and that there was some highpressure between the LES and the hiatus. We will look for this more when I do her endoscopy. After last visit hospitalized and was eating more by time of discharge. Suing tube feeds once/day. Weight is up and ate more at the buffet. She loks much healthier and and eating wwatermelon and tomatoes. She enjoys the buffet. She now is a month post botox injection and is doing well. Her color is good. She is eating better.We discussed her esophagus will never work perfectly but maybe with botox and dilation is manageable. She is agreeable to this plan. We will plan to repeat when symptomatic again. Patient agreeable to this plan. Discussed with the patient that per chart review the plan is to manage her swallowing problem with botox and dilation of esophagus. Patient has agreed to it. Order for EGD with dilation is placed. PLAN: - Chew well and eat slowly - EGD with dilation and Botox Berenice Shahid APRN-BIOGEOGRAPHER documented in this encounterAs[facility] Work Phone: [phone] History of Present illness Narrative* HEMAL Rios - 01/13/2025 12:00 PM EDT Prolia Injection # 4 The patient's left arm was cleaned and prepped with alcohol wipes. The prefilled syringe was then injected into the subcutaneous tissue for a total of 60mg of Prolia. The needle was then withdrawn. The patient tolerated the procedure well. The patient was instructed to ice the injection site for any discomfort and call with any questions or concerns. Next injection due 06/2025 HEMAL Rios 01/13/25 1147 documented in this encounterCincinnati [facility] [id number] Miscellaneous Notes* Telephone Encounter - PANFILO Major - 01/13/2025 7:56 AM EDT I spoke with this patient regarding her past history of hypocalcemia. She has a history of CKD. Patient states that she is currently short of breath which she believes is due to her anemia she has been dealing with. States that her PCP is managing her anemia. Patient received 1 dose of Evenity in July and nothing since. She is scheduled today for an Evenity injection. I do not feel it is safe to continue Evenity with this patient. She does not seem to be compliant with her calcium and I do not feel she is going to be able to remember to get to her appointments monthly. She is also in [place] half of the year. if she abruptly stops this medication she can have rapid bone loss. After further discussion with the patient, we do feel that even though she has a fracture history, the best option for her is to continue on Prolia therapy. Her last dose of Prolia was in February and this was Prolia #3. Patient is requesting this medication as it is easy for her due to her being out of town in [place] and only needing to receive the dose every 6 months. documented in this encounterCincinnati [facility]rin[facility]ton [address] [facility] [id number] Telephone encounter Note* Telephone Encounter - PANFILO Major - 01/13/2025 7:56 AM EDT I spoke with this patient regarding her past history of hypocalcemia. She has a history of CKD. Patient states that she is currently short of breath which she believes is due to her anemia she has been dealing with. States that her PCP is managing her anemia. Patient received 1 dose of Evenity in July and nothing since. She is scheduled today for an Evenity injection. I do not feel it is safe to continue Evenity with this patient. She does not seem to be compliant with her calcium and I do not feel she is going to be able to remember to get to her appointments monthly. She is also in [place] half of the year. if she abruptly stops this medication she can have rapid bone loss. After further discussion with the patient, we do feel that even though she has a fracture history, the best option for her is to continue on Prolia therapy. Her last dose of Prolia was in February and this was Prolia #3. Patient is requesting this medication as it is easy for her due to her being out of town in [place] and only needing to receive the dose every 6 months. [employer] Work Phone: [phone] History of Present illness Narrative* Douglas Will MD - 01/12/2025 2:45 PM EDTAssociated Problem(s): CKD stage 3a, GFR 45-59 ml/min ([facility]) Repeat labs * Douglas Will MD - 01/12/2025 2:44 PM EDTAssociated Problem(s): SOB (shortness of breath) Continued symptoms and unclear etiology. Repeat labs. Continue iron and nutritional supplements. * Douglas Will MD - 01/12/2025 2:43 PM EDTAssociated Problem(s): Severe protein-calorie malnutrition (CMS/HCC) Continue nutritional supplement. * Douglas Will MD - 01/12/2025 2:43 PM EDTAssociated Problem(s): COPD (chronic obstructive pulmonary disease) (CMS/HCC) Continued SOB but normal breath sounds. Follow with pulmonology and continue inhalers. * Douglas Will MD - 01/12/2025 2:42 PM EDTAssociated Problem(s): Chronic heart failure with preserved ejection fraction (HFpEF) (CMS/HCC) Follow with cardiology * Douglas Will MD - 01/12/2025 2:42 PM EDTAssociated Problem(s): CAD in [place] artery (CMS/HCC) No chest pain and follow up with cardiology. * Douglas Will MD - 01/12/2025 2:42 PM EDTAssociated Problem(s): Adult hypothyroidism (CMS/HCC) Repeat labs. * Douglas Will MD - 01/12/2025 2:00 PM EDT Images from the original note were not included. Subjective Patient ID: Leyla Lambert is a 84 y.o. female who presents for Follow-up and Shortness of Breath. Continues to c/o SOB. Severe symptoms for several weeks and no improvement. Severe SOB with minimalexertion. Hard to walk around house due to SOB and hard to complete ADLs. Develops SOB and severe fatigue. Run down and no energy. No wheezing. Denies LE edema. No chest pain or palpitations. Prior labs showed anemia and low protein. Weight stable. On iron supplement and taking nutritional supplement. Review of Systems Respiratory: Negative for cough, shortness of breath and wheezing. Cardiovascular: Negative for chest pain and palpitations. Gastrointestinal: Negative for abdominal pain, diarrhea, nausea and vomiting. Genitourinary: Negative for dysuria. Objective Physical Exam Constitutional: General: She is not in acute distress. Appearance: Normal appearance. HENT: Head: Normocephalic. Right Ear: Tympanic membrane normal. Left Ear: Tympanic membrane normal. Eyes: Extraocular Movements: Extraocular movements intact. Pupils: Pupils are equal, round, and reactive to light. Cardiovascular: Rate and Rhythm: Normal rate and regular rhythm. Heart sounds: No murmur heard. No friction rub. No gallop. Pulmonary: Effort: Pulmonary effort is normal. Breath sounds: Normal breath sounds. No wheezing, rhonchi or rales. Abdominal: General: Bowel sounds are normal. There is no distension. Palpations: Abdomen is soft. Tenderness: There is no abdominal tenderness. There is no guarding or rebound. Musculoskeletal: Cervical back: Neck supple. Right lower leg: No edema. Left lower leg: No edema. Neurological: Mental Status: She is alert. Assessment/Plan Problem List Items Addressed This Visit Adult hypothyroidism (CMS/HCC) Repeat labs. Relevant Orders TSH T4, free T3, free CAD in [place] artery (CMS/HCC) No chest pain and follow up with cardiology. Chronic heart failure with preserved ejection fraction (HFpEF) (CMS/HCC) Follow with cardiology COPD (chronic obstructive pulmonary disease) (CMS/HCC) Continued SOB but normal breath sounds. Follow with pulmonology and continue inhalers. Severe protein-calorie malnutrition (CMS/HCC) Continue nutritional supplement. Relevant Orders Hepatic function panel Encounter for long-term 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 medication Relevant Orders Basic metabolic panel SOB (shortness of breath) - Primary Continued symptoms and unclear etiology. Repeat labs. Continue iron and nutritional supplements. Iron 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 dietary iron intake Relevant Orders CBC and differential Iron and TIBC documented in this encounterParkland Health [id number] History of Present illness Narrative* Douglas Will MD - 12/23/2024 3:05 PM EDTAssociated Problem(s): Paroxysmal atrial fibrillation (CMS/HCC) NSR. * Douglas Will MD - 12/23/2024 3:04 PM EDTAssociated Problem(s): Hypoalbuminemia Protein low due to poor appetite. Start nutritional supplement. * Douglas Will MD - 12/23/2024 3:03 PM EDTAssociated Problem(s): Iron 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 dietary iron intake Start iron supplement. * Douglas Will MD - 12/23/2024 3:03 PM EDTAssociated Problem(s): SOB (shortness of breath) Continued symptoms and likely related to anemia and malnutrition. Start iron supplement. Repeat labs. * Douglas Will MD - 12/23/2024 11:45 AM EDT Images from the original note were not included. Subjective Patient ID: Leyla Lambert is a 84 y.o. female who presents for Follow-up (Hospital f/u). Hospital follow up from 12/13-12/16 for SOB and chest pain. C/o not feeling well for several weeks. Severe SOB and fatigue with exertion. Frequent chest tightness. Admitted and echo and chest x-ray negative. [place] not related to COPD. Labs showed low protein and hgb 8.5 along with low iron. Poor appetite and dysphagia for months. Not eating well. Continues to have symptoms and severe SOB with minimalexertion. Hard to walk due to symptoms. Review of Systems Respiratory: Negative for cough, shortness of breath and wheezing. Cardiovascular: Negative for chest pain and palpitations. Gastrointestinal: Negative for abdominal pain, diarrhea, nausea and vomiting. Genitourinary: Negative for dysuria. Objective Physical Exam Constitutional: General: She is not in acute distress. Appearance: Normal appearance. HENT: Head: Normocephalic. Right Ear: Tympanic membrane normal. Left Ear: Tympanic membrane normal. Eyes: Extraocular Movements: Extraocular movements intact. Pupils: Pupils are equal, round, and reactive to light. Cardiovascular: Rate and Rhythm: Normal rate and regular rhythm. Heart sounds: No murmur heard. No friction rub. No gallop. Pulmonary: Effort: Pulmonary effort is normal. Breath sounds: Normal breath sounds. No wheezing, rhonchi or rales. Abdominal: General: Bowel sounds are normal. There is no distension. Palpations: Abdomen is soft. Tenderness: There is no abdominal tenderness. There is no guarding or rebound. Musculoskeletal: Cervical back: Neck supple. Right lower leg: No edema. Left lower leg: No edema. Neurological: Mental Status: She is alert. Assessment/Plan Problem List Items Addressed This Visit SOB (shortness of breath) Continued symptoms and likely related to anemia and malnutrition. Start iron supplement. Repeat labs. Iron 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 dietary iron intake - Primary Start iron supplement. Relevant Medications ferrous sulfate (Fe Tabs) 325 (65 Fe) MG EC tablet Other Relevant Orders CBC and differential Hypoalbuminemia Protein low due to poor appetite. Start nutritional supplement. documented in this encounterParkland Health [id number] History of Present illness Narrative* Douglas Will MD - 12/13/2024 3:01 PM EDTAssociated Problem(s): Chest pain Continued pain and SOB. Recommend return to ER for admission. * Douglas Will MD - 12/13/2024 3:01 PM EDTAssociated Problem(s): Orthostatic hypotension Continued pain and SOB. Recommend return to ER for admission. * Douglas Will MD - 12/13/2024 3:01 PM EDTAssociated Problem(s): SOB (shortness of breath) Continued pain and SOB. Recommend return to ER for admission. * Douglas Will MD - 12/13/2024 2:15 PM EDT Images from the original note were not included. Subjective Patient ID: Leyla Lambert is a 84 y.o. female who presents for Follow-up (Er f/u) and Shortness ofBreath. ER follow up from 12/09 and 12/12 for SOB and chest pain. Patient hasn't felt well for several days. Called pulmonology last week and c/o SOB. Labs ordered and D- dimer elevated. To ER 12/09 and CTA negative then discharged. C/o lightheaded when up and moving and fell several times. Hit chest on walkerand c/o chest pain. To ER and diagnosed with orthostatic hypotension. Wanted to admit but patient in ER for over 8 hours. Bed wasn't ready and left AMA. Still having symptoms. Very lightheaded. Continued chest pain and SOB. Feels worse today than yesterday. Review of Systems Respiratory: Positive for shortness of breath. Negative for cough and wheezing. Cardiovascular: Negative for chest pain and palpitations. Gastrointestinal: Negative for abdominal pain, diarrhea, nausea and vomiting. Genitourinary: Negative for dysuria. Objective Physical Exam Constitutional: General: She is not in acute distress. Appearance: Normal appearance. HENT: Head: Normocephalic. Right Ear: Tympanic membrane normal. Left Ear: Tympanic membrane normal. Eyes: Extraocular Movements: Extraocular movements intact. Pupils: Pupils are equal, round, and reactive to light. Cardiovascular: Rate and Rhythm: Normal rate and regular rhythm. Heart sounds: No murmur heard. No friction rub. No gallop. Pulmonary: Effort: Pulmonary effort is normal. Breath sounds: Normal breath sounds. No wheezing, rhonchi or rales. Abdominal: General: Bowel sounds are normal. There is no distension. Palpations: Abdomen is soft. Tenderness: There is no abdominal tenderness. There is no guarding or rebound. Musculoskeletal: Cervical back: Neck supple. Right lower leg: No edema. Left lower leg: No edema. Neurological: Mental Status: She is alert. Assessment/Plan Problem List Items Addressed This Visit Orthostatic hypotension - Primary Continued pain and SOB. Recommend return to ER for admission. Chest pain Continued pain and SOB. Recommend return to ER for admission. SOB (shortness of breath) Continued pain and SOB. Recommend return to ER for admission. documented in this encounterParkland Health [id number] Miscellaneous Notes* Telephone Encounter - DELMIS Correa - 12/13/2024 10:37 AM EDT Patient called office and stated that she needs to be seen for shortness of breath, patient sounds very short of breath on phone, financial underwriter recommended that she go to ED to be evaluated. Patient stated that she was just there yesterday for 8 hours with no satisfaction. Patient stated that she does notwant to go back to ED. Patient is demanding an appointment with KW, financial underwriter informed patient that wedon't have a pulmonary physician in office today and that we do not do same day appointments. Test Baker informed her that she should contact her PCP as they may have openings before our office, patient stated that she does have an appointment today at 2:15pm. Test Baker recommended ED evaluation again andpatient stated that she will not be going to the ED. * Telephone Encounter - Emma Zabala MD - 12/13/2024 10:37 AM EDT Agree. I think she needs to have a cardiac evaluation (symptomatic hypotension) and it does not appear this is pulmonary. * Telephone Encounter - DELMIS Correa - 12/13/2024 10:37 AM EDT Test Baker called patient's PCP office and spoke with Dr. Will's medical interpreter, Tommy, financial underwriter informed Tommy of patient's message from earlier and KW's recommendations. Tommy stated that patient is coming in for an appointment with Dr. Will today at 2:15pm. Tommy stated that she would notify Dr. Will of this information. documented in this encounterL[id number] Telephone encounter Note* Telephone Encounter - DELMIS Correa - 12/13/2024 10:37 AM EDT Patient called office and stated that she needs to be seen for shortness of breath, patient sounds very short of breath on phone, financial underwriter recommended that she go to ED to be evaluated. Patient stated that she was just there yesterday for 8 hours with no satisfaction. Patient stated that she does notwant to go back to ED. Patient is demanding an appointment with KW, financial underwriter informed patient that wedon't have a pulmonary physician in office today and that we do not do same day appointments. Test Baker informed her that she should contact her PCP as they may have openings before our office, patient stated that she does have an appointment today at 2:15pm. Test Baker recommended ED evaluation again andpatient stated that she will not be going to the ED. [facility]04-29-2025 Telephone encounter Note* Telephone Encounter - Emma Zabala MD - 12/13/2024 10:37 AM EDT Agree. I think she needs to have a cardiac evaluation (symptomatic hypotension) and it does not appear this is pulmonary. [facility]04-29-2025 Telephone encounter Note* Telephone Encounter - DELMIS Correa - 12/13/2024 10:37 AM EDT Test Baker called patient's PCP office and spoke with Dr. Will's medical interpreter, Tommy, financial underwriter informed Tommy of patient's message from earlier and KW's recommendations. Tommy stated that patient is coming in for an appointment with Dr. Will today at 2:15pm. Tommy stated that she would notify Dr. Will of this information. [facility] Note[facility] CERVICAL SPINE WO CONT Procedure: CT CERVICAL SPINE WO CONT History: fall Neck trauma Multi-detector CT performed through the cervical spine in the axial plane with multiplanar reconstructions.Automated exposure control was utilized. Comparison January 14, 2024 Findings: There is no prevertebral soft tissue swelling. Diffuse disc disease and facet arthritis There is grossly no fracture, malalignment or destructive lesion. IMPRESSION: * No acute findings. Consider MRI cervical spine and possibly cervical spine flexion-extension radiographs if you suspect occult soft tissue injury and/or ligamentous injury. All CT scans at this facility use dose modulation, iterative reconstruction, and/or weight based dosing when appropriate to reduce radiation dose to as low as reasonably achievable. Finalized by Ted Alexander MD on 12/12/2024 1:43 [facility] 12-09-2024 Miscellaneous Notes* Telephone Encounter - May Gale CMA - 12/09/2024 9:01 AM EDT ----- Message from Stacey Bazan DO sent at 12/09/2024 8:46 AM [...] In Sent: 12/08/2024 3:20 PM EDT To: Stacey Bazan DO * Telephone Encounter - May Gale CMA - 12/09/2024 9:01 AM EDT Test Baker called Dr Will's office and spoke with Tommy. Relayed attached information from SE note from labs drawn yesterday and to see if they could follow up with her. Tommy said she would pass the information on to Dr Will when he got in. Tommy also said she could see the lab results in epic, so no need to fax results to them. documented in this [facility] Telephone encounter Note* Telephone Encounter - May Gale CMA - 12/09/2024 9:01 AM EDT ----- Message from Stacey Bazan DO sent at 12/09/2024 8:46 AM [...] In Sent: 12/08/2024 3:20 PM EDT To: Stacey Bazan DO [facility] [id number] Telephone encounter Note* Telephone Encounter - May Gale CMA - 12/09/2024 9:01 AM EDT Test Baker called Dr Will's office and spoke with Tommy. Relayed attached information from SE note from labs drawn yesterday and to see if they could follow up with her. Tommy said she would pass the information on to Dr Will when he got in. Tommy also said she could see the lab results in epic, so no need to fax results to them. [facility]04-23-2025 History of Present illness Narrative* Douglas iWll MD - 12/07/2024 2:14 PM EDTAssociated Problem(s): Open wound of left lower leg Wound not healing and refer to wound care. * Douglas Will MD - 12/07/2024 2:14 PM EDTAssociated Problem(s): Medicare annual wellness visit, subsequent Due for labs. Discussed proper diet and regular aerobic exercise. Need aerobic exercise 5-6 days a week for 30 minutes at a time. Smaller portions and limit total calories. Tetanus every 10 years. Advised not to smoke. * Douglas Will MD - 12/07/2024 1:30 PM EDT Images from the original note were not included. Subjective Patient ID: Leyla Lambert is a 84 y.o. female who presents for Medicare Annual Wellness Visit Subsequent (wellness). Presents for medicare annual wellness visit. Weight stable over the past year. Tries to watch diet and eat healthy. Increased fruits and vegetables. Smaller portions and limits snacking. Tries to limit total daily calories. Due for labs. Laceration to left giron not healing well. Hit giron on walker and developed skin tear. To urgent care and sutured but not healing well. Flap dark and discolored. Large open wound around flap and serous drainage with occasional bleeding. Covering with dressing. Review of Systems Respiratory: Negative for cough, shortness of breath and wheezing. Cardiovascular: Negative for chest pain and palpitations. Gastrointestinal: Negative for abdominal pain, diarrhea, nausea and vomiting. Genitourinary: Negative for dysuria. Objective Physical Exam Constitutional: General: She is not in acute distress. Appearance: Normal appearance. HENT: Head: Normocephalic. Right Ear: Tympanic membrane normal. Left Ear: Tympanic membrane normal. Eyes: Extraocular Movements: Extraocular movements intact. Pupils: Pupils are equal, round, and reactive to light. Cardiovascular: Rate and Rhythm: Normal rate and regular rhythm. Heart sounds: No murmur heard. No friction rub. No gallop. Pulmonary: Effort: Pulmonary effort is normal. Breath sounds: Normal breath sounds. No wheezing, rhonchi or rales. Abdominal: General: Bowel sounds are normal. There is no distension. Palpations: Abdomen is soft. Tenderness: There is no abdominal tenderness. There is no guarding or rebound. Musculoskeletal: Cervical back: Neck supple. Right lower leg: No edema. Left lower leg: No edema. Neurological: Mental Status: She is alert. Assessment/Plan Problem List Items Addressed This Visit Adult hypothyroidism (CMS/HCC) Relevant Orders TSH T4, free Essential hypertension, benign (CMS/HCC) Relevant Orders Basic metabolic panel CAD in [place] artery (CMS/HCC) Relevant Medications atorvastatin (Lipitor) 40 MG tablet Other Relevant Orders Lipid panel Hiatal hernia with gastroesophageal reflux Relevant Medications omeprazole (PriLOSEC) [address] capsule Prediabetes Relevant Orders Hemoglobin A1c Restless leg syndrome Relevant Medications rOPINIRole (Requip) 1 MG tablet Encounter for long-term 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 medication Relevant Orders CBC and differential Hepatic function panel Open wound of left lower leg Wound not healing and refer to wound care. Medicare annual wellness visit, subsequent - Primary Due for labs. Discussed proper diet and regular aerobic exercise. Need aerobic exercise 5-6 days a week for 30 minutes at a time. Smaller portions and limit total calories. Tetanus every 10 years. Advised not to smoke. documented in this encounterParkland Health [id number] History of Present illness Narrative* Cindy Bernal NP - 11/30/2024 1:19 PM EDTAssociated Problem(s): Open wound of left lower leg Recommend dressing changes daily, finish atb Pt requests to RTO tomorrow for a wound check And help with applying new bandage, order given for supplies to bring with her I do not have access to her urgent care notes as at this time our fax machine is not working Suture removal in 10 days * Cindy Bernal NP - 11/30/2024 11:30 AM EDT Images from the original note were not included. Leyla Lambert is a 84 y.o. female presents with chief complaint of Follow-up (Wound check stitchesyesterday from Urgent care) HPI: Here for wound check, fell scraping it on part of walker Given atb, told to fu Is on eliquis Laceration The incident occurred 12 to 24 hours ago. The laceration is 6 cm in size. The laceration mechanism was a metal edge. The pain is mild. She reports no foreign bodies present. Her tetanus status is unknown. SUBJECTIVE: MEDICATIONS: Current Outpatient Medications Medication Instructions apixaban (ELIQUIS) 2.5 mg, Oral, 2 times daily atorvastatin (LIPITOR) 40 mg, Oral, Nightly carbidopa-levodopa (Sinemet) 25-100 MG tablet Take 1 tablet every day by oral route at bedtime. celecoxib (CELEBREX) 200 mg, Oral, 2 times daily cephalexin (KEFLEX) 500 mg, 3 times daily clobetasol (Temovate) 0.05 % ointment Apply to affected areas, up to twice a day when flared, do not use one the face, groin, or underarms, 30 day supply cloNIDine (Catapres) 0.2 MG tablet TAKE 1 TABLET BY MOUTH NEEDED FOR SYSTOLIC BLOOD PRESSURE GREATER THAN OR EQUAL TO 170 SYSTOLIC, UP TO THREE TIMES A DAY. clopidogrel (PLAVIX) 75 mg, Oral, Daily Denosumab (PROLIA SC) Inject under the skin fludrocortisone (FLORINEF) 0.2 mg/day (0.2 mg), Oral, Daily fluticasone (Flonase) 50 MCG/ACT nasal spray 2 sprays, Each Nostril, Daily, Shake gently. Before first use, prime pump. After use, clean tip and replace cap. Odlopuxrpmv-Djfuisytr-Dyjlva (Trelegy Ellipta) 100-62.5-25 MCG/ACT aerosol powder 1 puff, Inhalation, Daily furosemide (LASIX) 20 mg, Oral, Daily hydrALAZINE (APRESOLINE) 25 mg, 2 times daily levothyroxine (SYNTHROID, LEVOXYL) 100 mcg, Oral, Daily losartan (Cozaar) 50 MG tablet meclizine (ANTIVERT) 25 mg, Oral, 4 times daily PRN metoprolol succinate XL (TOPROL-XL) 100 mg, Oral, Daily montelukast (SINGULAIR) 10 mg, Oral, Nightly oxybutynin XL (DITROPAN XL) 10 mg, Oral, Daily, Do not crush, chew, or split. Roflumilast 500 MCG tablet 1 tablet, Oral, Daily rOPINIRole (REQUIP) 1 mg, Oral, Nightly Sodium Fluoride 5000 Sensitive 1.1-5 % dental gel USE A PEA SIZE AMOUNT TWICE DAILY IN PLACE OF REGULAR TOOTHPASTE traZODone (DESYREL) 150 mg, Oral, Nightly triamcinolone (Kenalog) 0.1 % cream Apply to affected areas, up to twice a day when flared, do not use one the face, groin, or underarms, 30 day supply ALLERGIES: Allergies Allergen Reactions Holiday Itching, Other, Unknown and Rash welts Other reaction(s): Welts Other reaction(s): Welts welts Droxidopa Shortness of breath Gold-Containing Drug Products GI intolerance, Itching, Other, Rash and Unknown itching Other reaction(s): Intolerance itching Other reaction(s): Welts itching Holiday Nickel welts Other reaction(s): Welts Other reaction(s): [...] reaction(s): nausea, severe Other reaction(s): Abdominal Pain Levonorgestrel-Ethinyl Estrad Cough, Itching and Runny nose Latex REVIEW OF SYMPTOMS: Review of Systems Constitutional: Negative for appetite change, chills and fever. HENT: Negative for congestion, ear pain and sore throat. Eyes: Negative for pain, discharge, redness and visual disturbance. Respiratory: Negative for cough, shortness of breath and wheezing. Cardiovascular: Negative for chest pain, palpitations and leg swelling. Gastrointestinal: Negative for abdominal pain, blood in stool, constipation, diarrhea, nausea and vomiting. Genitourinary: Negative for difficulty urinating, dysuria and frequency. Musculoskeletal: Negative for arthralgias, back pain, joint swelling and myalgias. Skin: Positive for wound. Negative for rash. Neurological: Negative for dizziness, tremors, seizures, syncope and headaches. Psychiatric/Behavioral: Negative for behavioral problems, self-injury and suicidal ideas. The patient is not nervous/anxious. Hematological: Does not bruise/bleed easily. Endocrine: Negative for polydipsia, polyphagia and polyuria. Allergic/Immunologic: Negative for environmental allergies and food allergies. PAST MEDICAL HISTORY History reviewed. No pertinent past medical history. Past Surgical History: Procedure Laterality Date CT ANGIOGRAM ABDOMEN PELVIS 11/23/2023 CT ANGIOGRAM ABDOMEN PELVIS 11/23/2023 CT ANGIOGRAM ABDOMEN PELVIS 11/27/2023 CT ANGIOGRAM ABDOMEN PELVIS 11/27/2023 CT ANGIOGRAM ABDOMEN PELVIS 11/25/2023 CT ANGIOGRAM ABDOMEN PELVIS 11/25/2023 CT ANGIOGRAM ABDOMEN PELVIS 12/20/2023 CT ANGIOGRAM ABDOMEN PELVIS 12/20/2023 CT ANGIOGRAM ABDOMEN PELVIS 06/30/2024 CT ANGIOGRAM ABDOMEN PELVIS 06/30/2024 CT ANGIOGRAM HEART CORONARY 05/25/[address] ANGIOGRAM HEART CORONARY 02/15/2020 CT ANGIOGRAM TAVR 02/15/2020 CT ANGIOGRAM HEART CORONARY 11/23/2023 CT ANGIOGRAM TAVR 11/23/2023 CT ANGIOGRAM HEART CORONARY 11/27/2023 CT ANGIOGRAM TAVR 11/27/2023 CT ANGIOGRAM HEART CORONARY 11/25/2023 CT ANGIOGRAM TAVR 11/25/2023 CT ANGIOGRAM HEART CORONARY 12/20/2023 CT ANGIOGRAM TAVR 12/20/2023 CT ANGIOGRAM HEART CORONARY 12/30/2023 CT ANGIOGRAM TAVR 12/30/2023 CT ANGIOGRAM HEART CORONARY 01/14/2024 CT ANGIOGRAM TAVR 01/14/2024 CT ANGIOGRAM HEART CORONARY 06/30/2024 CT ANGIOGRAM TAVR 06/30/2024 IR ANGIOGRAM UPPER EXTREMITY LEFT Left 12/04/2023 IR ANGIOGRAM UPPER EXTREMITY LEFT 12/04/2023 IR CVC PICC 06/22/2018 IR CVC PICC IR INJECTION EPIDURAL STEROID 05/21/2018 IR INJECTION EPIDURAL STEROID IR INJECTION EPIDURAL STEROID 05/15/2018 IR INJECTION EPIDURAL STEROID family history is not on file. OBJECTIVE: Visit Vitals BP 134/68 Pulse 78 Temp 95.9 F Resp 22 Ht 5' 3 Wt 100 lb 6.4 oz SpO2 98% BMI 17.79 kg/m Smoking Status Never BSA 1.42 m Physical Exam Vitals and nursing note reviewed. Constitutional: General: She is not in acute distress. Appearance: Normal appearance. Comments: Medically frail HENT: Head: Normocephalic and atraumatic. Right Ear: External ear normal. Left Ear: External ear normal. Nose: Nose normal. Mouth/Throat: Mouth: Mucous membranes are moist. Eyes: Extraocular Movements: Extraocular movements intact. Conjunctiva/sclera: Conjunctivae normal. Cardiovascular: Rate and Rhythm: Normal rate and regular rhythm. Pulses: Normal pulses. Heart sounds: Normal heart sounds. Pulmonary: Effort: Pulmonary effort is normal. Breath sounds: Normal breath sounds. No wheezing or rhonchi. Abdominal: General: Bowel sounds are normal. There is no distension. Palpations: Abdomen is soft. There is no mass. Tenderness: There is no abdominal tenderness. Musculoskeletal: General: Normal range of motion. Cervical back: Normal range of motion and neck supple. Right lower leg: No edema. Left lower leg: No edema. Skin: General: Skin is warm and dry. Capillary Refill: Capillary refill takes 2 to 3 seconds. Findings: No rash. Comments: Laceration to left lat tib/fib region mid lower le sutures intact, and also mod sized skin tag, approx 2.5cm wide. Sutures are intact, sm amount of active oozing to- skin tear region Dressing changed: mod amount blood drainage on the telfa pad, X2 telfa pads applied over the wound and conform bandage applied and wrap applied No s/s infection noted Neurological: General: No focal deficit present. Mental Status: She is alert and oriented to person, place, and time. Psychiatric: Mood and Affect: Mood normal. Behavior: Behavior normal. Thought Content: Thought content normal. Judgment: Judgment normal. ASSESSMENT AND PLAN: No follow-ups on file. Problem List Items Addressed This Visit Open wound of left lower leg - Primary Recommend dressing changes daily, finish atb Pt requests to RTO tomorrow for a wound check And help with applying new bandage, order given for supplies to bring with her I do not have access to her urgent care notes as at this time our fax machine is not working Suture removal in 10 days documented in this [facility]04-16-2025 Instructions* Patient Instructions* Cindy Bernal NP - 11/30/2024 11:30 AM EDT Dressing changes every day Finish antibiotics as well Monitor for s/s infection documented in this [facility]03-12-2025 Miscellaneous Notes* Telephone Encounter - Luz Elena Zabala - 10/26/2024 12:39 PM EDT Patient is calling to ask for a refill on her Eliquis 5mg to be sent to the [facility] in [place] because they are still in [place]. [address]. [facility], [address] [facility] phone number [phone] She can be reached at [phone] Thank you. * Telephone Encounter - Imelda Mcintyre CMA - 10/26/2024 12:39 PM EDT Changed Pharmacy to [facility] in [facility] , documented in this [facility] Telephone encounter Note* Telephone Encounter - Luz Elena Zabala - 10/26/2024 12:39 PM EDT Patient is calling to ask for a refill on her Eliquis 5mg to be sent to the [facility] in [place] because they are still in [place]. [address]. [facility], [address] [place] phone number [phone] She can be reached at [phone] Thank you. [facility]03-12-2025 Telephone encounter Note* Telephone Encounter - Imelda Mcintyre CMA - 10/26/2024 12:39 PM EDT Changed Pharmacy to [facility] in [facility] , [facility]02-03-2025 Miscellaneous Notes* Telephone Encounter - Luz Elena Zabala - 09/19/2024 10:25 AM EST Patient is calling because at her last appointment with he took her off of Amlodipine but she was recently in Hospital in [facility] and they put her back on it. She is asking if she should continue to take it or not because told her to discontinue taking it. She can be reached at [phone] Thank you. * Telephone Encounter - Le Read LPN - 09/19/2024 10:25 AM EST Forwarding message to and his M/A I do not see anywhere in the chart that recommended patient to stop taking amlodipine * Telephone Encounter - Parul Pierce - 09/19/2024 10:25 AM EST Patient is calling back again to check status of previous message regarding stopping Amlodipine. There is a Hospital Discharge summary that Dr Higgins states She has orthostatic hypotension. I will call her PCP to discuss blood pressure medication management. But I do not see amlodipine directly mentioned. She is down in [place] and doesn't want to take anything Dr Higgins doesn't feel she should. She can be reached at [phone] Thank you. * Telephone Encounter - Marbella Forrest CMA - 09/19/2024 10:25 AM EST I spoke to patient and explained to her that she needs to follow up with her PCP for guidance on her amlodipine. I explained how it is important for her to have a provider managing her BP so they canmake sure she has the proper dosage to properly manage her BP. She understands. She stated she has an appointment in a few days and will further discuss with her provider. documented in this encounterL[facility] Telephone encounter Note* Telephone Encounter - Luz Elena Zabala - 09/19/2024 10:25 AM EST Patient is calling because at her last appointment with he took her off of Amlodipine but she was recently in Hospital in [facility] and they put her back on it. She is asking if she should continue to take it or not because told her to discontinue taking it. She can be reached at [phone] Thank you. [facility] [employer] [id number] Telephone encounter Note* Telephone Encounter - Le Read LPN - 09/19/2024 10:25 AM EST Forwarding message to and his M/A I do not see anywhere in the chart that recommended patient to stop taking amlodipine [facility] [employer] [id number] Telephone encounter Note* Telephone Encounter - Parul Pierce - 09/19/2024 10:25 AM EST Patient is calling back again to check status of previous message regarding stopping Amlodipine. There is a Hospital Discharge summary that Dr Ronaldo states She has orthostatic hypotension. I will call her PCP to discuss blood pressure medication management. But I do not see amlodipine directly mentioned. She is down in [place] and doesn't want to take anything Dr Ronaldo doesn't feel she should. She can be reached at [phone] Thank you. [facility] [employer] [id number] Telephone encounter Note* Telephone Encounter - Marbella Forrest CMA - 09/19/2024 10:25 AM EST I spoke to patient and explained to her that she needs to follow up with her PCP for guidance on her amlodipine. I explained how it is important for her to have a provider managing her BP so they canmake sure she has the proper dosage to properly manage her BP. She understands. She stated she has an appointment in a few days and will further discuss with her provider. [facility]01-09-2025 Miscellaneous Notes* Telephone Encounter - May Gale CMA - 08/25/2024 4:36 PM EST Test Baker called to offer patient an appointment on 08/29/23. Patient stated she was in [place] and would call to schedule when back in town. documented in this encounterL[facility] Telephone encounter Note* Telephone Encounter - May Gale CMA - 08/25/2024 4:36 PM EST Test Baker called to offer patient an appointment on 08/29/23. Patient stated she was in [place] and would call to schedule when back in town. [facility]01-03-2025 Miscellaneous Notes* Telephone Encounter - Lucie Kaya - 08/19/2024 1:42 PM EST Patient called in and would like to know how much calcium she is to take based on last note it stated patient should be taking 500 in the morning 1000 in the afternoon and 1000 at night note also mentions patient getting lab work for calcium patient stated she was not aware she was to get labwork done labwork was ordered 08/01 but patient had previously gotten labwork done for calcium while in hospital 07/30 does patient need to have this labwork done before she continues taking the amount previously discussed? patient also stated the calcium supplements she has come in 600mg doses patient also stated she is currently staying in [place] in [place] and would like to know what doctor was recommend she see there for her injections confirmed [phone] as a good callback number to discuss * Telephone Encounter - PANFILO Major - 08/19/2024 1:42 PM EST I just spoke with this patient. She has been taking the 500 in a.m. and 1,000 in afternoon and evening of calcium. She forgot to get her labs drawn before she left for [place]. She has a standing order in for calcium draws. She needs her labs rechecked but is in [place], [place]. She states shewould like to get her labs drawn at [facility] in [place], [place]. [id number], [place] [id number]. Phone number is . I assume someone will have to fax my order down there and then if you could call the patient and let her know the plan. Thank you! * Telephone Encounter - Sean Kilgore - 08/19/2024 1:42 PM EST Patient called back from [place] lab stating the order was not faxed. We were not provided a fax number. Registration staff at [facility] in [facility] gave fax number [phone]. Faxed calcium order and demographics sheet. documented in this encounterM[facility] [employer] [id number] Telephone encounter Note* Telephone Encounter - Lucie Kaya - 08/19/2024 1:42 PM EST Patient called in and would like to know how much calcium she is to take based on last note it stated patient should be taking 500 in the morning 1000 in the afternoon and 1000 at night note also mentions patient getting lab work for calcium patient stated she was not aware she was to get labwork done labwork was ordered 08/01 but patient had previously gotten labwork done for calcium while in hospital 07/30 does patient need to have this labwork done before she continues taking the amount previously discussed? patient also stated the calcium supplements she has come in 600mg doses patient also stated she is currently staying in [place] in [place] and would like to know what doctor was recommend she see there for her injections confirmed [phone] as a good callback number to discuss [facility] [id number] Telephone encounter Note* Telephone Encounter - PANFILO Major - 08/19/2024 1:42 PM EST I just spoke with this patient. She has been taking the 500 in a.m. and 1,000 in afternoon and evening of calcium. She forgot to get her labs drawn before she left for [place]. She has a standing order in for calcium draws. She needs her labs rechecked but is in [place], [place]. She states shewould like to get her labs drawn at [facility] [place] [facility] in [place], [place]. [id number], [place] [address]. Phone number is . I assume someone will have to fax my order down there and then if you could call the patient and let her know the plan. Thank you! [employer] Phone: [phone] 562-117101-03-2025 Telephone encounter Note* Telephone Encounter - Sean Kilgore - 08/19/2024 1:42 PM EST Patient called back from [place] [facility] stating the order was not faxed. We were not provided a fax number. Registration staff at [facility] in [facility] gave fax number [phone]. Faxed calcium order and demographics sheet. [facility]10-18-2024 History of Present illness Narrative* HEMAL Guerra - 06/03/2024 12:20 PM EDT Images from the original note were not included. Suture Removal Patient here for suture removal: No complaints of redness, drainage or swelling at site, compliant with wound care. Location: right upper back Procedure Performed: Punch biopsy Date of Procedure: 05/24/2024 Medications: Clobetasol ointment All pertinent medical history, medications, and allergies were reviewed. General Exam: alert, oriented to person, place, and time, normal affect, well appearing uses a walker Accompaniedby spouse A focused exam completed based on patient reported problems, see below: 1. Allergic reaction to drug, subsequent encounter Torso - Posterior (Back) Clear today. See photo May use Clobetasol ointment PRN if it flares. Counseling and reassurance given today. Follow up forrecurrence. If rash recurs then will have to work with her other physicians to hold one medication at a time. 2. Encounter for removal of sutures Right Upper Back Sutures are intact, Skin edges are well-approximated, Mild erythema along incision line, Crusting noted along incision line, No drainage or edema noted Suture removal today, see procedure note: Suture Removal Procedure: Sutures removed without difficulty. Post-Procedure instructions: Instructed to discontinue wound care., Pathology results discussed. Next Visit: prn for any new/changing lesions documented in this encounterParkland Health [id number] History of Present illness Narrative* Nolan Julio MD MPH - 05/30/2024 2:00 PM EDT GENERAL SURGERY CLINIC POST-OP FOLLOW UP VISIT CLINIC DATE: 05/30/24 NAME: Leyla Lambert 83 y.o. DATE OF SURGERY: 03/31/24 SURGICAL PROCEDURE: EGD w/Dilation 100 units total Botox Inject @ [place] Sharp Object Removal in Cardia EXTRA PROCEDURES: N/A COMPLICATIONS DURING ADMISSION: None THIS VISIT WEIGHT / BMI: 104 LBS/ BMI: 18.42 Wt Readings from Last 1 Encounters: 04/11/24 48.1 kg (106 lb) BMI Readings from Last 1 Encounters: 04/11/24 18.78 kg/m WEIGHT / BMI HX: Wt Readings from Last 3 Encounters: 04/11/24 48.1 kg (106 lb) 03/31/24 46.6 kg (102 lb 11.8 oz) 03/28/24 47.2 kg (104 lb) BMI Readings from Last 3 Encounters: 04/11/24 18.78 kg/m 03/31/24 18.20 kg/m 03/28/24 18.42 kg/m SURGEON: Dr. Nolan Julio PRESENTING TODAY FOR General Surgery Post-Op FUV: is a 83 y.o. female. Time Since proceedure: 2 MOS. Self verbalizes concerns: none. Weight not dropping . Swallowing better. Have times when can't swallow. CURRENT SYMPTOMS: Abdominal Pain: No Bloating: No Constipation: No Diarrhea: Yes Hiccups: No Nausea/Vomiting: No DIET HISTORY: Carbonated Beverages: Yes Caffeinated Beverages: Yes Fluid Intake: 20 oz/day GERD - Health Related Quality of Life Questionnaire (GERD- HRQL) On PPI: Famotidine 40 mg How bad is the heartburn? 0 = No symptoms Heartburn when lying down? 0 = No symptoms Heartburn when standing up? 0 = No symptoms Heartburn after meals? 0 = No symptoms Does heartburn change your diet? 0 = No symptoms Does heartburn wake you from sleep? 0 = No symptoms Do you have difficulty swallowing? 3 Do you have pain with swallowing? 2 = Symptoms noticeable and bothersome but not every day If you take medication, does this affect your daily life? 0 = No symptoms How bad is the regurgitation? 3 = Symptoms bothersome every day Regurgitation when lying down? 2 = Symptoms noticeable and bothersome but not every day Regurgitation when standing up? 3 = Symptoms bothersome every day Regurgitation after meals? 3 = Symptoms bothersome every day Does regurgitation change your diet? 1 = Symptoms noticeable but not bothersome Does regurgitation wake you from sleep? 0 = No symptoms How satisfied are you with your present condition? Dissatisfied Total score (calculated by summing the individual scores of questions 1-15): 14 Greatest possible score 75 (worst symptoms). Lowest possible score 0 (no symptoms). Heartburn score (calculated by summing the individual scores of questions 1-6): 0 Worst heartburn symptoms: 30. No heartburn symptoms: 0. Score less than or equal to 12 with each individual question not exceeding 2 indicate heartburn elimination. Regurgitation score (calculated by summing the individual scores of questions 10-15): 12 Worst regurgitation symptoms: 30. No regurgitation symptoms: 0. Score less than or equal to 12 with each individual question not exceeding 2 indicate regurgitationelimination. PROVIDER LAST IMPRESSION VISIT NOTE 04/11/24: Leyla Lambert IS A 83 y.o. female with Leyla Lambert IS A 83 y.o. female with 80 yo female being sentto be evaluated for LPR. she has been treated for fungal esophagitis and with this . She also was noted to have some abnormalities on her modified barium swallow. EMOT shows a high pressure area between the les and hiatus. The esophagram is normal. EGD shows a hiatal hernia. She also has an infection in her knee that is being treated for abs. I suspect the biggest issue is poor clearance from thehiatal hernia and we see the high pressure between the LES and the hiatus. It seems from the HH shehas poor clearance but minimal reflux. We discussed fixing the hiatal hernia to improve the clearance and get rid of the high pressure zone. She also notes excess saliva when she eats. this all speaks to poor clearance. We discussed this at length. All qeusitons were answered. She has a knee infection that needs to be cleared first. She is seeing the orthopod tomorrow. She is having trouble eating. hopefully we can proceed in February. 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 That was when I last saw her in 2020. 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 The patient did not have any resolution of symptoms and was dilated several months later. She then had a thoracic aortic dissection that was managed by vascular with a TEVAR. During our visittoday the patient states that she is very dizzy. Her blood pressure is high. She notes that she does not use any of her tube feeds despite having a G-tube because it gives her severe diarrhea. The patient does not know the formula she is on. She also notes that when she spits up a lot of the problem is foamy. In my discussions with her it is unclear whether her symptoms are at the UES or at the lower esophagus. She has had multiple esophagram's at outside hospitals and we will try to get them transferred into our system. I also like to get a modified barium swallow for further evaluation. I had extensive discussion with her and her as I was very concerned about them driving 3 hours home. I also am not able to get her on my schedule electively for a couple of weeks for an endoscopyand possible dilation. The patient notes that the dilations in the past have not helped. She reportedly did not have a hiatal hernia repair at the time of her robotic myotomy and will try to get the operative report. 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 Wewill look for this more when I do her endoscopy. After last visit hospitalized and was eating more by time of discharge. Suing tube feeds once/day. Weight is up and ate more at the buffet. She loks much healthier and and eating wwatermelon and tomatoes. She enjoys the buffet. PLAN: Chew well and eat slowly Only doing tube feeds once/day Try metamucil or benefiber to help bulk up the diarrhea from the tube feeds. Eat as much as you can. We may need to stretch you again. Let's do a virtual visit in a month Try to do the tube feeds twice/day. Eat 4-5 times/day. CURRENT MEDICATIONS: Current Outpatient Medications Medication Sig Dispense Refill acetaminophen (Tylenol) 500 mg tablet Take 2 tablets (1,000 mg) by mouth 3 times a day. apixaban (Eliquis) 2.5 mg tablet Take 1 tablet (2.5 mg) by mouth twice a day. azelastine (Astelin) 137 mcg (0.1 %) nasal spray Administer 2 sprays into each nostril 2 times a day. calcium carbonate (Tums) 200 mg calcium chewable tablet Chew 1 tablet (500 mg) twice a day. carbidopa-levodopa (Sinemet) 25-100 mg tablet 1 tablet. celecoxib (CeleBREX) 200 mg capsule Take 1 capsule (200 mg) by mouth twice a day. clopidogrel (Plavix) 75 mg tablet Take 1 tablet (75 mg) by mouth once daily. famotidine (Pepcid) 40 mg tablet fludrocortisone (Florinef) 0.1 mg tablet Take 1 tablet every day by oral route for 90 days. fluticasone (Flonase) 50 mcg/actuation nasal spray 2 sprays once daily. furosemide (Lasix) 20 mg tablet Take 1 tablet (20 mg) by mouth once daily. hydrALAZINE (Apresoline) 25 mg tablet every 8 hours. levothyroxine (Tirosint) 112 mcg capsule Take 1 capsule (112 mcg) by mouth once daily. metoprolol succinate XL (Toprol-XL) 100 mg 24 hr tablet Take 1 tablet (100 mg) by mouth once daily. montelukast (Singulair) 10 mg tablet Take 1 tablet (10 mg) by mouth once daily. roflumilast (Daliresp) 500 mcg tablet Take 1 tablet (500 mcg) by mouth once daily. traZODone (Desyrel) 150 mg tablet Take 1 tablet every day by oral route at bedtime. Trelegy Ellipta 100-62.5-25 mcg blister with device Inhale 1 puff once daily. No current facility-administered medications for this visit. 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 (CMS-HCC) Asthma CHF (congestive heart failure) Chronic heart failure with preserved ejection fraction (HFpEF) Chronic kidney disease Orthostatic hypotension Stage 2 moderate COPD by GOLD classification (Multi) Chronic pancreatitis (Multi) Coronary atherosclerosis Cyst of left kidney Depressive disorder Difficulty walking Diverticular disease Essential hypertension, benign Recurrent falls Gastro-esophageal reflux disease with esophagitis Gastroparesis Genetic susceptibility to other disease History of cardiac pacemaker in situ History of cardiovascular disorder History of thromboembolism of vein Supine hypertension Mixed hyperlipidemia Hypothyroidism Incontinence Iron deficiency anemia MDD (major depressive disorder), recurrent episode, moderate Infection of prosthetic joint (CMS-HCC) Obesity with body mass index 30 or greater Pacemaker Paroxysmal atrial fibrillation (Multi) Parkinson's disease (Multi) Persistent insomnia Physical deconditioning Prediabetes Presence of stent in coronary artery Primary osteoarthritis of both knees Prosthetic joint loosening (CMS-HCC) Restless legs syndrome Rosacea PAST SURGICAL HISTORY: Past Surgical History: Procedure Laterality Date CARDIAC PACEMAKER PLACEMENT 03/02/2017 COLECTOMY PARTIAL / TOTAL 03/20/2021 Laparoscopic partial COLONOSCOPY 03/20/2021 CORONARY STENT PLACEMENT 03/10/2008 LAD x2 ESOPHAGOGASTRODUODENOSCOPY 03/20/2021 ESOPHAGOGASTRODUODENOSCOPY W/ PEG 01/16/2024 ESOPHAGOSCOPY / EGD 03/30/2024 W DILATION HYSTERECTOMY 06/20/2020 LAPAROSCOPY ESOPHAGOGASTRIC FUNDOPLASTY HYBRID 11/24/2022 DAVINCI ESOPHAGOMYOTOMY HELLER WITH TOUPET FUNDOPLICATION LYMPH NODE BIOPSY 03/03/2023 INGUINAL MASTECTOMY Bilateral 06/20/2020 THORACIC AORTA STENT 11/28/2023 Endovascular repair TOTAL KNEE ARTHROPLASTY 03/20/2021 FAMILY HISTORY: No family history on file. SOCIAL HISTORY: Social History Socioeconomic History Marital status: Spouse name: Not on file Number of children: Not on file Years of education: Not on file Highest education level: Not on file Occupational History Not on file Tobacco Use Smoking status: Never Smokeless tobacco: Never Substance and Sexual Activity Alcohol use: Not on file Drug use: Not on file Sexual activity: Not on file Other Topics Concern Not on file Social History Narrative Not on file Social Determinants of Health Financial Resource Strain: Low Risk (03/28/2024) Overall Financial Resource Strain (CARDIA) Difficulty of Paying Living Expenses: Not very hard Food Insecurity: No Food Insecurity (01/15/2024) Received from [facility] Hunger Screening Within the past 12 months we worried whether our food would run out before we got money to buy more.: Never True Within the past 12 months the food we bought just didn't last and we didn't have money to get more.: Never True Transportation Needs: No Transportation Needs (03/28/2024) PRAPARE - Transportation Lack of Transportation (Medical): No Lack of Transportation (Non-Medical): No Physical Activity: Not on file Stress: No Stress Concern Present (05/21/2023) Received from [facility] [employer] [place] [facility] - Occupational Stress Questionnaire Feeling of Stress : Not at all Social Connections: Unknown (05/21/2023) Received from [facility] Social Connection and Isolation Panel [NHANES] Frequency of Communication with Friends and Family: More than three times a week Frequency of Social Gatherings with Friends and Family: Not on file Attends Quaker Services: Not on file Active Member of Clubs or Organizations: Not on file Attends Club or Organization Meetings: Not on file Marital Status: Not on file Intimate Partner Violence: Unknown (10/08/2023) Received from [facility] Safety & Environment Fear of Current or Ex-Partner: Not on file Emotionally Abused: Not on file Physically Abused: Not on file Sexually Abused: Not on file Physically or Sexually Abused: Not on file Housing Stability: Low Risk (03/28/2024) Housing Stability Vital Sign Unable to Pay for Housing in the Last Year: No Number of Times Moved in the Last Year: 1 Homeless in the Last Year: No ALLERGIES: Allergies Allergen Reactions Holiday Itching, Other, Unknown and Rash Other reaction(s): Welts welts Droxidopa Shortness of breath Latex Itching, Other and Rash Patient states allergic to Latex Patient states allergic to Latex Other reaction(s): Welts Patient states allergic to Latex Nickel Hives, Itching, Other and Rash Other reaction(s): Welts Acetaminophen-Codeine Unknown, GI intolerance, GI Upset, Nausea Only and Other Other reaction(s): Abdominal Pain Codeine GI intolerance, Unknown, Nausea Only and Other Other reaction(s): nausea, severe Acetaminophen-codeine Other reaction(s): nausea, severe Acetaminophen-codeine Other reaction(s): nausea, severe Other reaction(s): Abdominal Pain Levonorgestrel-Ethinyl Estrad Cough, Itching and Runny nose Other Other Annotation - [id number]: Nickel, Holiday, Gold Compounding Gold Au 198 Unknown, Itching, Other and Rash Other reaction(s): Welts itching Gold Keratinate Unknown, Itching, Other and Rash itching Holiday Nickel welts Other reaction(s): Welts Other reaction(s): Intolerance itching Gold Sodium Thiomalate (Bulk) Itching, Other and Rash Other reaction(s): Welts REVIEW OF SYSTEMS: CONSTITUTIONAL: Patient denies fevers, chills, sweats and weight changes. EYES: Patient denies any visual symptoms. EARS, NOSE, AND THROAT: No difficulties with hearing. No symptoms of rhinitis or sore throat. CARDIOVASCULAR: Patient denies chest pains, palpitations, orthopnea and paroxysmal nocturnal dyspnea. RESPIRATORY: No dyspnea on exertion, no wheezing or cough. GI: No nausea, vomiting, diarrhea, constipation, abdominal pain, hematochezia or melena. : No urinary hesitancy or dribbling. No nocturia or urinary frequency. No abnormal urethral discharge. MUSCULOSKELETAL: No myalgias or arthralgias. NEUROLOGIC: No chronic headaches, no seizures. Patient denies numbness, tingling or weakness. PSYCHIATRIC: Patient denies problems with mood disturbance. No problems with anxiety. ENDOCRINE: No excessive urination or excessive thirst. DERMATOLOGIC: Patient denies any rashes or skin changes. PHYSICAL EXAM There were no vitals taken for this visit. PHYSICAL EXAMINATION: GENERAL: No apparent distress. Pt is alert and oriented x3. VITAL SIGNS: HR, BP, Temp; Normal HEENT: Head is normocephalic and atraumatic. Extraocular muscles are intact. Pupils are equal, round, and reactive to light and accommodation. Nares appeared normal. Mouth is well hydrated and without lesions. Mucous membranes are moist. Posterior pharynx clear of any exudate or lesions. NECK: Supple. No carotid bruits. No lymphadenopathy or thyromegaly. LUNGS: Clear to auscultation. HEART: Regular rate and rhythm without murmur. ABDOMEN: Soft, appropriately mildly tender to palpation, and nondistended. Positive bowel sounds. No hepatosplenomegaly was noted. Incisions CDI. EXTREMITIES: Without any cyanosis, clubbing, rash, lesions or edema. NEUROLOGIC: Cranial nerves II through XII are grossly intact. PSYCHIATRIC: Flat affect, but denies suicidal or homicidal ideations. SKIN: No ulceration or induration present. IMPRESSION: Leyla Lambert IS A 83 y.o. female joselin Lambert IS A 83 y.o. female with Leyla Lambert IS A83 y.o. female with 80 yo female being sent to be evaluated for LPR. she has been treated for fungal esophagitis and with this . She also was noted to have some abnormalities on her modified barium swallow. EMOT shows a high pressure area between the les and hiatus. The esophagram is normal. EGD shows a hiatal hernia. She also has an infection in her knee that is being treated for abs. I suspect the biggest issue is poor clearance from the hiatal hernia and we see the high pressure between the LES and the hiatus. It seems from the HH she has poor clearance but minimal reflux. We discussed fixing the hiatal hernia to improve the clearance and get rid of the high pressure zone. She also notesexcess saliva when she eats. this all speaks to poor clearance. We discussed this at length. All qeusitons were answered. She has a knee infection that needs to be cleared first. She is seeing the orthopod tomorrow. She is having trouble eating. hopefully we can proceed in February. 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 That was when I last saw her in 2020. 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 The patient did not have any resolution of symptoms and was dilated several months later. She then had a thoracic aortic dissection that was managed by vascular with a TEVAR. During our visit today the patient states that she is very dizzy. Her blood pressure is high. She notes that she does not use any of her tube feeds despite having a G-tube because it gives her severe diarrhea. The patient does not know the formula she is on. She also notes that when she spits up a lot of the problem is foamy. In my discussions with her it is unclear whet her her symptoms are at the UES or at the lower esophagus. She has had multiple esophagram's at outside hospitals and we will try to get them transferred into our system. I also like to get a modified barium swallow for further evaluation. I had extensive discussion with her and her as I was very concerned about them driving 3 hours home. I also am not able to get her on my schedule electively for a couple of weeks for an endoscopy and possible dilation. The patient notes that the dilations in the past have not helped. She reportedly did not have a hiatal hernia repair at the time of her robotic myotomy and will try to get the operative report. When I had seen her before I did thinkthat her issues were more EGJ outflow obstruction from a hiatal hernia and that there was some highpressure between the LES and the hiatus. We will look for this more when I do her endoscopy. After last visit hospitalized and was eating more by time of discharge. Suing tube feeds once/day. Weight is up and ate more at the buffet. She loks much healthier and and eating wwatermelon and tomatoes. She enjoys the buffet. She now is a month post botox injection and is doing well. Her color is good. She is eating better.We discussed her esophagus will never work perfectly but maybe with botox and dilation is manageable. She is agreeable to this plan. We will plan to repeat when symptomatic again. Patient agreeable to this plan. PLAN: Chew well and eat slowly We can do that botox and strethching again Call if the swallowing gets worse and we can do this again. 30 minutes spent with patient on [id number] interaction, history/documentation, education, and coordination of care. Dr. Nolan Julio M.D., MPH Director of Bariatric & Minimally Invasive Surgery [place] [address] T: [phone] F: [phone] Rupinder Liriano, RN [employer] Assembler Nurse [employer] Make Ready Worker, Clinical Trainer - Bariatric/General Surgery [facility] Patient Nursing Contact T: [phone] F: [phone] documented in this [facility] Work Phone: 1(732) 361-199510-14-2024 Instructions* Patient Instructions* Nolan Julio MD MPH - 05/30/2024 2:00 PM EDT PLAN: Chew well and eat slowly We can do that botox and strethching again Call if the swallowing gets worse and we can do this again. Dr. Nolan Julio M.D., MPH Director of Bariatric & Minimally Invasive Surgery [facility] [id number] [place] [address] T: [phone] F: [phone] Rupinder Liriano, RN Internal Combustion Engine Assembler Nurse Used Car Make Ready Worker, Clinical Trainer - Bariatric/General Surgery [facility] Patient Nursing Contact T: [phone] F: [phone] documented in this [facility] Work Phone: 1(841) 375-610710-08-2024 History of Present illness Narrative* HEMAL Guerra - 05/24/2024 7:40 AM EDT Images from the original note were not included. Rash Location: back Duration: months Severity: mild Quality: itchy Associated symptoms: red Current treatments: TAC 0.1% cream not helping using TID Established patient All pertinent medical history, medications, and allergies were reviewed. General Exam: alert, oriented to person, place, and time, normal affect, well appearing Accompanied by spouse A focused exam completed based on patient reported problems, see below: 1. Rash and other nonspecific skin eruption Right Upper Back [place] patches and plaques Start Clobetasol Ointment BID until suture removal in 10 days. Lesion biopsy - Right Upper Back Type of biopsy: punch Informed consent: discussed and consent obtained Informed consent comment: The risks and benefits were discussed. Risks include, but are not limitedto, bleeding, infection, scarring, pain, & nerve damage. An opportunity to ask questions prior to the procedure was permitted and questions were answered. Patient was prepped and draped in usual sterile fashion: Area cleansed with alcohol. Anesthesia: the lesion was anesthetized in a standard fashion Anesthetic: 1% lidocaine w/ epinephrine 1-100,000 buffered w/ 8.4% NaHCO3 Punch size: 3 mm (A biopsy by punch method was performed using a dermal punch) Suture size: 4-0 Suture type: nylon Suture type comment: Hemostasis was achieved with suture. Hemostasis achieved with: suture Outcome: patient tolerated procedure well Post-procedure details: sterile dressing applied and wound care instructions given Post-procedure details comment: Emphasized the need to contact clinic for any signs of infection, uncontrollable bleeding, or complications. Dressing type: bandage Additional details: Amount of lidocaine used: 1.0 cc Number of sutures used: 2 Specimen sent for: H&E Photo taken yes clobetasol (Temovate) 0.05 % ointment - Right Upper Back Apply to affected areas, up to twice a day when flared, do not use one the face, groin, or underarms, 30 day supply Specimen A - Dermatopathology exam Differential Diagnosis: Fixed Drug eruption vs other Check Margins: No Next Visit: 10 day S/R documented in this encounterParkland Health [id number] History of Present illness Narrative* Nolan Julio MD MPH - 04/11/2024 11:00 AM EDT Images from the original note were not included. GENERAL SURGERY CLINIC FOLLOW UP NOTE CLINIC DATE: 04/11/24 NAME: Leyla Lambert 83 y.o. THIS VISIT WEIGHT / BMI: 106 LBS/ BMI: 48.1 Wt Readings from Last 1 Encounters: 04/11/24 48.1 kg (106 lb) BMI Readings from Last 1 Encounters: 04/11/24 18.78 kg/m WEIGHT / BMI HX: Wt Readings from Last 3 Encounters: 04/11/24 48.1 kg (106 lb) 03/31/24 46.6 kg (102 lb 11.8 oz) 03/28/24 47.2 kg (104 lb) BMI Readings from Last 3 Encounters: 04/11/24 18.78 kg/m 03/31/24 18.20 kg/m 03/28/24 18.42 kg/m SURGEON: Dr. Nolan Julio PRESENTING TODAY for General Surgery FUV (no surgery to date): is a 83 y.o. female. Self verbalizesconcerns: a lot of diarrhea, still can't hardly swallow Limited responses as at local [facility]. Eating more but up 4 lbs. Ate at buffet and doing better. Using tube feeds at night. Back to previous formulation. Eating more at the buffet. Won't to tf at night and does not like the bm's and using gravity feeds. CURRENT SYMPTOMS: Abdominal pain: No Abdominal bloating: No Burping: No Constipation: No Diarrhea: Yes Experiencing hunger: Yes Food Intolerances: No Food Sticking: Yes Gassy: Yes Hiccups: No Hx Gastric Ulcers: No Nausea/vomiting: No Symptoms Affect Ability to Excercise:No DIET HISTORY: Carbonated Beverages: Yes Diet Rootbeer but shake it up to get rid of carbonation Caffeinated Beverages: No Fluid intake: feels not always hydrated (tube feed formula self reducing d/t diarrhea oz/day GERD - Health Related Quality of Life Questionnaire (GERD- HRQL) Off PPI for (how long) How bad is the heartburn? 0 = No symptoms Heartburn when lying down? 0 = No symptoms Heartburn when standing up? 0 = No symptoms Heartburn after meals? 0 = No symptoms Does heartburn change your diet? 0 = No symptoms Does heartburn wake you from sleep? 0 = No symptoms Do you have difficulty swallowing? 3= Symptoms noticeable and bothersome every day Do you have pain with swallowing? 0 = No symptoms If you take medication, does this affect your daily life? 0 = No symptoms How bad is the regurgitation? 2 = Symptoms noticeable and bothersome but not every day Regurgitation when lying down? 0 = No symptoms Regurgitation when standing up? 2 = Symptoms noticeable and bothersome but not every day Regurgitation after meals? 2 = Symptoms noticeable and bothersome but not every day Does regurgitation change your diet? 0 = No symptoms Does regurgitation wake you from sleep? 0 = No symptoms How satisfied are you with your present condition? Dissatisfied Total score (calculated by summing the individual scores of questions 1-15): 9 Greatest possible score 75 (worst symptoms). Lowest possible score 0 (no symptoms). Heartburn score (calculated by summing the individual scores of questions 1-6): 0 Worst heartburn symptoms: 30. No heartburn symptoms: 0. Score less than or equal to 12 with each individual question not exceeding 2 indicate heartburn elimination. Regurgitation score (calculated by summing the individual scores of questions 10-15): 6 Worst regurgitation symptoms: 30. No regurgitation symptoms: 0. Score less than or equal to 12 with each individual question not exceeding 2 indicate regurgitationelimination. PROVIDER LAST IMPRESSION VISIT NOTE: Esophagogastroduodenoscopy (EGD) Order# [id number] Reading physician: Nolan Julio MD MPH Ordering provider: Rock Alanis MD Study date: 03/31/24 Result Information Status: Final result (Exam End: 03/31/2024 08:54) Provider Status: Open Result Text Result Text Impression Dilation in the esophagus Intrinsic stricture [...] the GE junction (GE junction) using a four- quadrant injection method One sharp object in the [...] unspecified whether esophagitis present Staff Staff Role Nolan Julio MD MPH Proceduralist Medications See Anesthesia Record. Preprocedure A history and physical has been performed, and patient medication allergies have been reviewed. Thepatient's tolerance of previous anesthesia has been reviewed. [...] STOMACH Tissue FOREIGN BODY(S) SURGICAL PATHOLOGY EXAM Nolan Julio MD MPH 03/31/2024 0831 Procedure Location [place] [address] [place] [address] Referring Provider Rock Alanis MD Procedure Provider Nolan Julio MD MPH Result History Esophagogastroduodenoscopy (EGD) w Dilation TTS (Order #[id number]) on 03/31/2024 - Order Result History Report Procedure Images Dilated lumen; Esophagus Z-line Sharp object; Stomach Sharp object; Stomach Sharp object; Stomach Sharp object; Stomach Normal; Gastric Antrum; peg in place Sharp object; Stomach Sharp object; Stomach Z-line; patuloius Sharp object; Cardia; diatal to ge junction Sharp object; Stomach Sharp object; Stomach Normal; Normal; Stomach Normal; Duodenum Normal; Duodenum Normal; Cardia; hill 2-3, patulous Normal; Cardia; hill 2-3, patulous Normal; Cardia Z-line; patulous Dilated lumen; Esophagus Stricture; Lower Third of Esophagus Stricture; Lower Third of Esophagus Normal; Stomach Normal; Stomach Stricture; Lower Third of Esophagus Stricture; Lower Third of Esophagus Stricture; Lower Third of Esophagus; post b otox Stricture; Lower Third of Esophagus; post botox Anatomical Diagram LUIS ALBERTO Video Show Video IMPRESSION: 03/28/24 Leyla Lambert IS A 83 y.o. female with 80 yo female being sent to be evaluated for LPR. she has beentreated for fungal esophagitis and with this . She also was noted to have some abnormalities on hermodified barium swallow. EMOT shows a high pressure area between the les and hiatus. The esophagramis normal. EGD shows a hiatal hernia. She also has an infection in her knee that is being treated for abs. I suspect the biggest issue is poor clearance from the hiatal hernia and we see the high pressure between the LES and the hiatus. It seems from the HH she has poor clearance but minimal reflux. We discussed fixing the hiatal hernia to improve the clearance and get rid of the high pressure zone. She also notes excess saliva when she eats. this all speaks to poor clearance. We discussed thisat length. All qeusitons were answered. She has a knee infection that needs to be cleared first. She is seeing the orthopod tomorrow. She is having trouble eating. hopefully we can proceed in February. 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 That was when I last saw her in 2020. 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 The patient did not have any resolution of symptoms and was dilated several months later. She then had a thoracic aortic dissection that was managed by vascular with a TEVAR. During our visit today the patient states that she is very dizzy. Her blood pressure is high. She notes that she does not use any of her tube feeds despite having a G-tube because it gives her severe diarrhea. The patient does not know the formula she can. She also notes that when she spits up a lot of the problem is foamy. In my discussions with herit is unclear whether her symptoms are at the UES or at the lower esophagus. She has had multiple esophagram's at outside hospitals and we will try to get them transferred into our system. I also like to get a modified barium swallow for further evaluation. I had extensive discussion with her and her as I was very concerned about them driving 3 hours home. I also am not able to get her onmy schedule electively for a couple of weeks for an endoscopy and possible dilation. The patient notes that the dilations in the past have not helped. She reportedly did not have a hiatal hernia repair at the time of her robotic myotomy and will try to get the operative report. 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 We will look for this more when I do herendoscopy. I also discussed with her and her that in her current state I am concerned abouther going home and that possibly we should bring her in through the emergency room for further evalu ation as her blood pressure is high, she is dizzy, and she is not able to get any nutrition and despite having a gastrostomy tube. She and her are going to decide whether they want to come tothe emergency room or be admitted. PLAN: Get nutrition 4-5 times/day. Try metamucil for the diarrhea. Just take twice/day. See if helps. Try putting chin to chest when drinking. I would like to put down a camera, possible botox and dilation. You will need to stop blood thinners for this. Try some saltine crackers when you get the foam. Stay upright after meals. We will get a modified barium swallow. Get the esophagram pushed over in pacs from ailyn CURRENT MEDICATIONS: Current Outpatient Medications Medication Sig Dispense Refill acetaminophen (Tylenol) 500 mg tablet Take 2 tablets (1,000 mg) by mouth 3 times a day. apixaban (Eliquis) 2.5 mg tablet Take 1 tablet (2.5 mg) by mouth twice a day. azelastine (Astelin) 137 mcg (0.1 %) nasal spray Administer 2 sprays into each nostril 2 times a day. calcium carbonate (Tums) 200 mg calcium chewable tablet Chew 1 tablet (500 mg) twice a day. carbidopa-levodopa (Sinemet) 25-100 mg tablet 1 tablet. celecoxib (CeleBREX) 200 mg capsule Take 1 capsule (200 mg) by mouth twice a day. clopidogrel (Plavix) 75 mg tablet Take 1 tablet (75 mg) by mouth once daily. famotidine (Pepcid) 40 mg tablet fludrocortisone (Florinef) 0.1 mg tablet Take 1 tablet every day by oral route for 90 days. fluticasone (Flonase) 50 mcg/actuation nasal spray 2 sprays once daily. furosemide (Lasix) 20 mg tablet Take 1 tablet (20 mg) by mouth once daily. hydrALAZINE (Apresoline) 25 mg tablet every 8 hours. levothyroxine (Tirosint) 112 mcg capsule Take 1 capsule (112 mcg) by mouth once daily. metoprolol succinate XL (Toprol-XL) 100 mg 24 hr tablet Take 1 tablet (100 mg) by mouth once daily. montelukast (Singulair) 10 mg tablet Take 1 tablet (10 mg) by mouth once daily. roflumilast (Daliresp) 500 mcg tablet Take 1 tablet (500 mcg) by mouth once daily. traZODone (Desyrel) 150 mg tablet Take 1 tablet every day by oral route at bedtime. Trelegy Ellipta 100-62.5-25 mcg blister with device Inhale 1 puff once daily. No current facility-administered medications for this visit. 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 ([facility]) Asthma ([facility]) CHF (congestive heart failure) (Multi) Chronic heart failure with preserved ejection fraction (HFpEF) (Multi) Chronic kidney disease Orthostatic hypotension Stage 2 moderate COPD by GOLD classification (Multi) Chronic pancreatitis (Multi) Coronary atherosclerosis Cyst of left kidney Depressive disorder Difficulty walking Diverticular disease Essential hypertension, benign Recurrent falls Gastro-esophageal reflux disease with esophagitis Gastroparesis Genetic susceptibility to other disease History of cardiac pacemaker in situ History of cardiovascular disorder History of thromboembolism of vein Supine hypertension Mixed hyperlipidemia Hypothyroidism Incontinence Iron deficiency anemia MDD (major depressive disorder), recurrent episode, moderate (Multi) Infection of prosthetic joint ([facility]) Obesity with body mass index 30 or greater Pacemaker Paroxysmal atrial fibrillation (Multi) Parkinson's disease (Multi) Persistent insomnia Physical deconditioning Prediabetes Presence of stent in coronary artery Primary osteoarthritis of both knees Prosthetic joint loosening ([facility]) Restless legs syndrome Rosacea PAST SURGICAL HISTORY: Past Surgical History: Procedure Laterality Date CARDIAC PACEMAKER PLACEMENT 03/02/2017 COLECTOMY PARTIAL / TOTAL 03/20/2021 Laparoscopic partial COLONOSCOPY 03/20/2021 CORONARY STENT PLACEMENT 03/10/2008 LAD x2 ESOPHAGOGASTRODUODENOSCOPY 03/20/2021 ESOPHAGOGASTRODUODENOSCOPY W/ PEG 01/16/2024 ESOPHAGOSCOPY / EGD 03/30/2024 W DILATION HYSTERECTOMY 06/20/2020 LAPAROSCOPY ESOPHAGOGASTRIC FUNDOPLASTY HYBRID 11/24/2022 DAVINCI ESOPHAGOMYOTOMY HELLER WITH TOUPET FUNDOPLICATION LYMPH NODE BIOPSY 03/03/2023 INGUINAL MASTECTOMY Bilateral 06/20/2020 THORACIC AORTA STENT 11/28/2023 Endovascular repair TOTAL KNEE ARTHROPLASTY 03/20/2021 FAMILY HISTORY: No family history on file. SOCIAL HISTORY: Social History Socioeconomic History Marital status: Spouse name: Not on file Number of children: Not on file Years of education: Not on file Highest education level: Not on file Occupational History Not on file Tobacco Use Smoking status: Never Smokeless tobacco: Never Substance and Sexual Activity Alcohol use: Not on file Drug use: Not on file Sexual activity: Not on file Other Topics Concern Not on file Social History Narrative Not on file Social Determinants of Health Financial Resource Strain: Low Risk (03/28/2024) Overall Financial Resource Strain (CARDIA) Difficulty of Paying Living Expenses: Not very hard Food Insecurity: No Food Insecurity (01/15/2024) [facility] Hunger Screening Within the past 12 months we worried whether our food would run out before we got money to buy more.: Never True Within the past 12 months the food we bought just didn't last and we didn't have money to get more.: Never True Transportation Needs: No Transportation Needs (03/28/2024) PRAPARE - Transportation Lack of Transportation (Medical): No Lack of Transportation (Non-Medical): No Physical Activity: Not on file Stress: No Stress Concern Present (05/21/2023) [facility] [place] [facility] - Occupational Stress Questionnaire Feeling of Stress : Not at all Social Connections: Unknown (05/21/2023) [facility] Social Connection and Isolation Panel [NHANES] Frequency of Communication with Friends and Family: More than three times a week Frequency of Social Gatherings with Friends and Family: Not on file Attends Quaker Services: Not on file Active Member of Clubs or Organizations: Not on file Attends Club or Organization Meetings: Not on file Marital Status: Not on file Intimate Partner Violence: Unknown (10/08/2023) Received from [facility] [place] Safety & Environment Fear of Current or Ex-Partner: Not on file Emotionally Abused: Not on file Physically Abused: Not on file Sexually Abused: Not on file Physically or Sexually Abused: Not on file Housing Stability: Low Risk (03/28/2024) Housing Stability Vital Sign Unable to Pay for Housing in the Last Year: No Number of Times Moved in the Last Year: 1 Homeless in the Last Year: No ALLERGIES: Allergies Allergen Reactions Holiday Itching, Other, Unknown and Rash Other reaction(s): Welts welts Droxidopa Shortness of breath Latex Itching, Other and Rash Patient states allergic to Latex Patient states allergic to Latex Other reaction(s): Welts Patient states allergic to Latex Nickel Hives, Itching, Other and Rash Other reaction(s): Welts Acetaminophen-Codeine Unknown, GI intolerance, GI Upset, Nausea Only and Other Other reaction(s): Abdominal Pain Codeine GI intolerance, Unknown, Nausea Only and Other Other reaction(s): nausea, severe Acetaminophen-codeine Other reaction(s): nausea, severe Acetaminophen-codeine Other reaction(s): nausea, severe Other reaction(s): Abdominal Pain Levonorgestrel-Ethinyl Estrad Cough, Itching and Runny nose Other Other Annotation - [id number]: Nickel, Holiday, Gold Compounding Gold Au 198 Unknown, Itching, Other and Rash Other reaction(s): Welts itching Gold Keratinate Unknown, Itching, Other and Rash itching Holiday Nickel welts Other reaction(s): Welts Other reaction(s): Intolerance itching Gold Sodium Thiomalate (Bulk) Itching, Other and Rash Other reaction(s): Welts REVIEW OF SYSTEMS: CONSTITUTIONAL: Patient denies fevers, chills, sweats and weight changes. EYES: Patient denies any visual symptoms. EARS, NOSE, AND THROAT: No difficulties with hearing. No symptoms of rhinitis or sore throat. CARDIOVASCULAR: Patient denies chest pains, palpitations, orthopnea and paroxysmal nocturnal dyspnea. RESPIRATORY: No dyspnea on exertion, no wheezing or cough. GI: No nausea, vomiting, diarrhea, constipation, abdominal pain, hematochezia or melena. : No urinary hesitancy or dribbling. No nocturia or urinary frequency. No abnormal urethral discharge. MUSCULOSKELETAL: No myalgias or arthralgias. NEUROLOGIC: No chronic headaches, no seizures. Patient denies numbness, tingling or weakness. PSYCHIATRIC: Patient denies problems with mood disturbance. No problems with anxiety. ENDOCRINE: No excessive urination or excessive thirst. DERMATOLOGIC: Patient denies any rashes or skin changes. PHYSICAL EXAM: Visit Vitals BP 147/79 Pulse 98 Weight up 4 lbs PHYSICAL EXAMINATION: GENERAL: No apparent distress. Pt is alert and oriented x3. VITAL SIGNS: HR, BP, Temp; Normal HEENT: Head is normocephalic and atraumatic. Extraocular muscles are intact. Pupils are equal, round, and reactive to light and accommodation. Nares appeared normal. Mouth is well hydrated and without lesions. Mucous membranes are moist. Posterior pharynx clear of any exudate or lesions. NECK: Supple. No carotid bruits. No lymphadenopathy or thyromegaly. LUNGS: Clear to auscultation. HEART: Regular rate and rhythm without murmur. ABDOMEN: Soft, appropriately mildly tender to palpation, and nondistended. Positive bowel sounds. No hepatosplenomegaly was noted. Incisions CDI. EXTREMITIES: Without any cyanosis, clubbing, rash, lesions or edema. NEUROLOGIC: Cranial nerves II through XII are grossly intact. PSYCHIATRIC: Flat affect, but denies suicidal or homicidal ideations. SKIN: No ulceration or induration present. IMPRESSION: Leyla Lambert IS A 83 y.o. female with Leyla Lambert IS A 83 y.o. female with 80 yo female being sentto be evaluated for LPR. she has been treated for fungal esophagitis and with this . She also was noted to have some abnormalities on her modified barium swallow. EMOT shows a high pressure area between the les and hiatus. The esophagram is normal. EGD shows a hiatal hernia. She also has an infection in her knee that is being treated for abs. I suspect the biggest issue is poor clearance from thehiatal hernia and we see the high pressure between the LES and the hiatus. It seems from the HH shehas poor clearance but minimal reflux. We discussed fixing the hiatal hernia to improve the clearance and get rid of the high pressure zone. She also notes excess saliva when she eats. this all speaks to poor clearance. We discussed this at length. All qeusitons were answered. She has a knee infection that needs to be cleared first. She is seeing the orthopod tomorrow. She is having trouble eating. hopefully we can proceed in February. 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 That was when I last saw her in 2020. 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 The patient did not have any resolution of symptoms and was dilated several months later. She then had a thoracic aortic dissection that was managed by vascular with a TEVAR. During our visittoday the patient states that she is very dizzy. Her blood pressure is high. She notes that she does not use any of her tube feeds despite having a G-tube because it gives her severe diarrhea. The patient does not know the formula she is on. She also notes that when she spits up a lot of the problem is foamy. In my discussions with her it is unclear whether her symptoms are at the UES or at the lower esophagus. She has had multiple esophagram's at outside hospitals and we will try to get them transferred into our system. I also like to get a modified barium swallow for further evaluation. I had extensive discussion with her and her as I was very concerned about them driving 3 hours home. I also am not able to get her on my schedule electively for a couple of weeks for an endoscopyand possible dilation. The patient notes that the dilations in the past have not helped. She reportedly did not have a hiatal hernia repair at the time of her robotic myotomy and will try to get the operative report. 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 Wewill look for this more when I do her endoscopy. After last visit hospitalized and was eating more by time of discharge. Suing tube feeds once/day. Weight is up and ate more at the buffet. She loks much healthier and and eating wwatermelon and tomatoes. She enjoys the buffet. PLAN: Chew well and eat slowly Only doing tube feeds once/day Try metamucil or benefiber to help bulk up the diarrhea from the tube feeds. Eat as much as you can. We may need to stretch you again. Let's do a virtual visit in a month Try to do the tube feeds twice/day. Eat 4-5 times/day. Dr. Nolan Julio M.D., MPH Director of Bariatric & Minimally Invasive Surgery [place] [address] T: [phone] F: [phone] Rupinder Liriano, RN [employer] Nurse Used [employer] Make Ready Worker, Clinical Trainer - Bariatric/General Surgery [facility] Patient Nursing Contact T: [phone] F: [phone] documented in this encounterAsht[facility] Work Phone: 1(740) 809-662108-22-2024 History of Present illness Narrative* Douglas Will MD - 04/07/2024 12:19 PM EDTAssociated Problem(s): Dysphasia Continued problems swallowing and follow with GI. * Douglas Will MD - 04/07/2024 11:59 AM EDTAssociated Problem(s): Lumbar spondylosis Increased pain and refer to pain management. * Douglas Will MD - 04/07/2024 11:58 AM EDTAssociated Problem(s): Diarrhea Developed diarrhea and try lomotil. * Douglas Will MD - 04/07/2024 11:58 AM EDTAssociated Problem(s): Severe protein-calorie malnutrition (CMS/HCC) C/o diarrhea from tube feeds and not taking as much. Try lomotil and try to increase feeds. Follow with specialists. * Douglas Will MD - 04/07/2024 11:30 AM EDT Images from the original note were not included. Subjective Patient ID: Leyla Lambert is a 83 y.o. female who presents for Follow-up (Hospital f/u). Hospital follow up from 03/28-03/30 for dysphagia and malnutrition. Seen by surgeon and c/o weakness and no energy. Unable to swallow and has feeding tube. Admitted and had EGD with botox injection. Able to swallow for few days then developed dysphagia again. Not able to eat. Dietary recommended 5 cans of tube feed per day but patient only taking 1 due to diarrhea. Changed formula but still diarrhea. Currently taking 2 cans a day. Continues to have weakness and not able to swallow. Continues to have diarrhea several times a day. C/o worsening back pain. Pain in low back and across top hips. Pain with walking and standing. Not able to stay active due to pain. Using celebrex and not helping. Review of Systems Respiratory: Negative for cough, shortness of breath and wheezing. Cardiovascular: Negative for chest pain and palpitations. Gastrointestinal: Negative for abdominal pain, diarrhea, nausea and vomiting. Genitourinary: Negative for dysuria. Objective Physical Exam Constitutional: General: She is not in acute distress. Appearance: Normal appearance. HENT: Head: Normocephalic. Right Ear: Tympanic membrane normal. Left Ear: Tympanic membrane normal. Eyes: Extraocular Movements: Extraocular movements intact. Pupils: Pupils are equal, round, and reactive to light. Cardiovascular: Rate and Rhythm: Normal rate and regular rhythm. Heart sounds: No murmur heard. No friction rub. No gallop. Pulmonary: Effort: Pulmonary effort is normal. Breath sounds: Normal breath sounds. No wheezing, rhonchi or rales. Abdominal: General: Bowel sounds are normal. There is no distension. Palpations: Abdomen is soft. Tenderness: There is no abdominal tenderness. There is no guarding or rebound. Musculoskeletal: Cervical back: Neck supple. Right lower leg: No edema. Left lower leg: No edema. Neurological: Mental Status: She is alert. Assessment/Plan Problem List Items Addressed This Visit Dysphasia Continued problems swallowing and follow with GI. Severe protein-calorie malnutrition (CMS/HCC) - Primary C/o diarrhea from tube feeds and not taking as much. Try lomotil and try to increase feeds. Follow with specialists. Lumbar spondylosis Increased pain and refer to pain management. Relevant Orders Ambulatory referral to Pain Medicine Diarrhea Developed diarrhea and try lomotil. Relevant Medications diphenoxylate-atropine (Lomotil) 2.5-0.025 MG tablet documented in this encounterParkland Health [id number] Nurse Note* Jennifer Franco RN - 04/01/2024 3:14 PM EDT 1513 Discharge instructions reviewed with pt and pts . All questions and concerns addressed.IV's removed. Feeding formula provided to pt. [facility]08-16-2024 Nurse Note* Jennifer Franco RN - 04/01/2024 3:14 PM EDT 1513 Discharge instructions reviewed with pt and pts . All questions and concerns addressed.IV's removed. Feeding formula provided to pt. * Caryn Salmon RN - 03/31/2024 8:05 PM EDT 1929: assumed pt care 2104: pt refused to get vital 1.5 tube feed, states it would keep her up all night, states she usually takes it in the morning & is willing to start in the morning tomorrow, let resident Dr. Oliva and division controller know, was told pt may start it in the morning 2110: pt is on trazadone 150 mg PO but got an error message stating this med can prolong the QT interval with propofol, asking resident DR. Oliva * Kelly Taveras RN - 03/30/2024 5:59 PM EDT 1800 patient refusing feeds via peg tube. Patient and spouse educated again about the importance ofreceiving nutrition; patient continues to state that my stool is going to come out like liquid. Iexplained again that without eating solid food, and the peg tube feedings being liquid, that she will only be having liquid bowel movements. Team notified. * Kelly Taveras RN - 03/30/2024 9:37 AM EDT 0937 drs and nutrition notified that patient is refusing morning feeds. Educated patient that she is going to have loose/liquid stools if she is only being fed liquid/feeds via the kangaroo pump. Patient insists that she doesn't want food right now. 0941 running feeds now. Patient has been educated to call if she experiences nausea or vomiting. * Kelly Taveras RN - 03/29/2024 10:38 AM EDT 1042 Discussing with doctors what the plan is to feed this patient. Patient and verbalized having a plan to get EGD , barium swallow is finished as of this morning, hoping to have a diet order started/maintained until then. Messages in secure chat with team. documented in this encounterAs[facility] Work Phone: [phone]) 476-462308-16-2024 Hospital Discharge instructions* Discharge Instructions* Juan Carlos Brannon DO - 04/01/2024 11:41 AM EDT Please, take your home medications as instructed after being discharged from the hospital. OTHER INSTRUCTIONS: Encourage oral intake Resume taking your Vital 1.5- 250 ml 4 times a day; wash with 30 ml of water before and after each feeding and wash with an additional 120 ml water flush 3 times a day in-between feeds UPCOMING APPOINTMENTS: Please, follow-up with your PCP within 7 to 14 days after leaving the hospital and follow with Bariatric surgery within 1 month of discharge. [facility]/appointment services has been requested to makean appointment for you, however if you do not hear back from them within 1 to 2 days, please call your primary physician's office to schedule an appointment. Bring your photo ID and insurance card toyour appointment. [facility] casket coverer services can be reached at [phone]. If you experience any worsening symptoms or have any concerns, please contact your primary care provider to schedule an appointment. If you cannot get in touch with your primary care physician, please return to the nearest emergency room or urgent care clinic for an evaluation and treatment. Thank you for choosing [facility] and allowing us to partake in your medical care! - Your [facility] inpatient primary care team. documented in this [facility] Work Phone: [phone]) 732-930408-16-2024 History of Present illness Narrative* Rock Alanis MD - 04/01/2024 11:18 AM EDT Leyla Lambert is a 83 y.o. female on day 4 of admission presenting with Dysphagia. Subjective Patient seen and evaluated at bedside. Afebrile with stable hemodynamics. Underwent EGD with botox injection yesterday. Ate spaghetti last night. Intermittently getting tube feeds. Eliquis resumed this AM. UGI reviewed, easy transit of contrast. Objective Constitutional: thin, wake/alert/oriented x3, in pain, alert and cooperative Eyes: PERRL, EOMI, clear sclera Head/Neck: Neck supple, no apparent injury, No JVD, trachea midline Respiratory/Thorax: good chest expansion, thorax symmetric Cardiovascular: Regular, rate and rhythm, 2+ equal pulses of the extremities Gastrointestinal: Nondistended, soft, feeding tube in place Musculoskeletal: ROM intact, no joint swelling, normal strength Extremities: normal extremities, no cyanosis edema, contusions or wounds, no clubbing Neurological: alert and oriented x3, intact senses, Psychological: Appropriate mood and behavior Skin: Warm and dry, no lesions, no rashes Last Recorded Vitals Blood pressure 155/58, pulse 67, temperature 36.6 C (97.9 F), temperature source Tympanic, resp. rate 20, height 1.6 m (5' 3 ), weight 46.6 kg (102 lb 11.8 oz), SpO2 96%. Intake/Output last 3 Shifts: I/O last 3 completed shifts: In: 1210 (26 mL/kg) [P.O.:810; I.V.:400 (8.6 mL/kg)] Out: - (0 mL/kg) Weight: 46.6 kg Relevant Results Malnutrition Diagnosis Status: Ongoing Malnutrition Diagnosis: Severe malnutrition related to acute disease or injury As Evidenced by: loss of muscle and adipose stores per NFPE; consuming less than 50% of estimated energy requirements >/= 5 days I agree with the dietitian's malnutrition diagnosis. Assessment/Plan Principal Problem: Dysphagia Active Problems: Dysphagia, unspecified type 83-year-old female with with history of achalasia status post robotic Heller myotomy and Toupet fundoplication in 05/2023, s/p EGD with dilation in 08/2023, s/p endovascular intervention for aortic dissection and placement of PEG in 01/2024 with persistent dysphagia and poor PO/feeding tube tolerance. Also found to be dizzy in the office and hypertensive in the ED. Plan is as follows after admission to hospitalist service. Get nutrition 4-5 times/day. Try metamucil for the diarrhea. Just take twice/day. See if helps. Try putting chin to chest when drinking. Try some saltine crackers when you get the foam. Stay upright after meals. May be discharged home with follow up in [address] Nolan Julio. I spent 45 minutes in the professional and overall care of this patient. Rock Alanis MD * Ania London RN - 04/01/2024 11:01 AM EDT 04/01/24 1100 Discharge Planning Living Arrangements Spouse/significant other Support Systems Spouse/significant other Assistance Needed patient reports independence in ADL's, uses a rollator, room air, does not drive-spouse does, PEG tube with TF ([facility] supplier- reports she has all needed supplies) Type of Residence Private residence Number of Stairs to Enter Residence 0 Number of Stairs Within Residence 0 Do you have animals or pets at home? No Who is requesting discharge planning? Provider Home or Post Acute Services In home services Type of Home Care Services DME or oxygen (new orders for tubefeeds faxed to Lilibeth @[phone]) Expected Discharge Disposition Home Does the patient need discharge transport arranged? No 04/01/2024 1516: Patient sent home with tube feed for 3 days as requested by division controller. * Marilyn Alexandra RD - 03/31/2024 3:40 PM EDT Nutrition Progress Note Nutrition Follow Up Note Patient has Malnutrition Diagnosis: Yes Diagnosis Status: Ongoing Malnutrition Diagnosis: Severe malnutrition related to acute disease or injury As Evidenced by: loss of muscle and adipose stores per NFPE; consuming less than 50% of estimated energy requirements >/= 5 days Additional Assessment Information: Plan to resume PEG tube feeds; EGD 03/31/24 Nutrition Assessment Nutrition History: Food and Nutrient History: (03/31/24) Pt seen after EGD today, pt allowed to have Regular diet, small bites and plan to resume TF. Pt declines nocturnal TF, agrees to have bolus TF. Pt reports she has tolerated the Vital 1.5 better, stools more formed in comparison to fiber free formula. (03/29/24)Pt with poor oral intakes; has PEG tube but only taking 1 can of TF daily (recommended pt to have 5 per EMR review). pt reports diarrhea after having tube feed; over last couple of nights, pt has had vomiting 2-3 times when trying to sleep. Pt was trying to eat regular foods such as corn on the cob, pizza but a ttimes she could not swalow water. Noted [employer] recs for pleasure feeds; plan for EGD on 03/31/24. Plan to trial oral diet and try alternative tube feeds with fiber. Will gradually increase TF to goal since pt has only been taking 1 can/day with minimal oral intakes over last few days. Per RDN note from 01/2024, TF recs: 237 ml Osmolite 1.2 5 x/day, 45 ml water flush before/aftereach feed = 1422 kcal, 66 g protein, 972 ml free water in 1185 ml total volume of TF. 1422 ml totalfree water/24 hours with flushes. Energy Intake: Poor < 50 % Allergies Allergen Reactions Holiday Itching, Other, Unknown and Rash Other reaction(s): Welts welts Droxidopa Shortness of breath Latex Itching, Other and Rash Patient states allergic to Latex Patient states allergic to Latex Other reaction(s): Welts Patient states allergic to Latex Nickel Hives, Itching, Other and Rash Other reaction(s): Welts Acetaminophen-Codeine Unknown, GI intolerance, GI Upset, Nausea Only and Other Other reaction(s): Abdominal Pain Codeine GI intolerance, Unknown, Nausea Only and Other Other reaction(s): nausea, severe Acetaminophen-codeine Other reaction(s): nausea, severe Acetaminophen-codeine Other reaction(s): nausea, severe Other reaction(s): Abdominal Pain Levonorgestrel-Ethinyl Estrad Cough, Itching and Runny nose Other Other Annotation - 04Oct2018: Nickel, Holiday, Gold Compounding Gold Au 198 Unknown, Itching, Other and Rash Other reaction(s): Welts itching Gold Keratinate Unknown, Itching, Other and Rash itching Holiday Nickel welts Other reaction(s): Welts Other reaction(s): Intolerance itching Gold Sodium Thiomalate (Bulk) Itching, Other and Rash Other reaction(s): Welts GI Symptoms: None Oral Problems: Swallowing difficulty Anthropometrics: Height: 160 cm (5' 3 ) Weight: 46.6 kg (102 lb 11.8 oz) BMI (Calculated): 18.2 IBW/kg (Dietitian Calculated): 52.3 kg Percent of IBW: 89 % Weight History: Weight 03/28/2024 1145 03/28/2024 1835 03/31/2024 0727 Weight: 47.2 kg (104 lb) 46.6 kg (102 lb 11.8 oz) 46.6 kg (102 lb 11.8 oz) Nutrition Focused Physical Exam Findings: Skin intact; no edema Nutrition Significant Labs: Results from last 7 days Lab Units 03/31/24 0512 03/30/24 0753 03/29/24 0724 GLUCOSE mg/dL 93 88 96 SODIUM mmol/L 139 140 141 POTASSIUM mmol/L 3.9 3.8 4.5 CHLORIDE mmol/L 106 106 104 CO2 mmol/L 27 25 28 BUN mg/dL 40* 27* 24* CREATININE mg/dL 1.04 0.99 0.96 EGFR mL/min/1.73m*2 53* 56* 58* CALCIUM mg/dL 7.5* 7.1* 7.8* PHOSPHORUS mg/dL 2.5 2.7 4.6 MAGNESIUM mg/dL 2.81* 2.50* 2.17 Lab Results Component Value Date HGBA1C 5.6 06/10/2021 Results from last 7 days Lab Units 03/28/24 2309 POCT GLUCOSE mg/dL 99 Lab Results Component Value Date ALBUMIN 3.4 03/31/2024 No results found for: CRP Nutrition Specific Medications: Scheduled medications: [Held by provider] apixaban, 2.5 mg, oral, BID azelastine, 2 spray, Each Nostril, BID calcium carbonate, 500 mg, oral, BID carbidopa-levodopa, 1 tablet, oral, Nightly [Held by provider] clopidogrel, 75 mg, oral, Daily famotidine, 40 mg, oral, Daily [Held by provider] fludrocortisone, 0.1 mg, oral, Daily fluticasone, 2 spray, Each Nostril, Daily tiotropium, 2 puff, inhalation, Daily And fluticasone furoate-vilanteroL, 1 puff, inhalation, Daily furosemide, 20 mg, oral, Daily hydrALAZINE, 25 mg, oral, q8h lactated Ringer's, 500 mL, intravenous, Once levothyroxine, 112 mcg, oral, Daily lidocaine, 0.1 mL, subcutaneous, Once metoprolol succinate XL, 100 mg, oral, Daily montelukast, 10 mg, oral, Nightly roflumilast, 500 mcg, oral, Daily thiamine, 100 mg, g-tube, Daily traZODone, 150 mg, oral, Nightly Continuous medications: PRN medications: PRN medications: acetaminophen OR acetaminophen OR acetaminophen, HYDROmorphone, labetaloL,ondansetron ODT OR ondansetron, oxyCODONE, oxyCODONE, oxygen, oxygen, polyethylene glycol, prochlorperazine OR prochlorperazine OR prochlorperazine Nursing Data Per flowsheet: Stool Appearance: Loose (03/30/24 1829) Gastrointestinal Gastrointestinal (WDL): Exceptions to WDL (PEG tube) Abdomen Inspection: Other (Comment) (PEG Tube) Bowel Sounds: All quadrants Bowel Sounds (All Quadrants): Active Last BM Date: 03/30/24 Bowel Incontinence: No Stool Appearance: Loose Stool Color: Brown Feeding assistance level: Intake/Output Summary (Last 24 hours) at 03/31/2024 1540 Last data filed at 03/31/2024 1425 Gross per 24 hour Intake 1170 ml Output -- Net 1170 ml 0-10 (Numeric) Pain Score: 9 Dietary Orders (From admission, onward) Start Ordered 03/31/24 1249 Enteral feeding WITH diet order Diet type: Regular; Tube feeding formula: Vital 1.5; 250 (4 x/day); 120; Water; Tap water; Other (specify); 3 x/day in between feeds Continuous Comments: 30 ml water flush pre/post bolus feed Use pump to administer feeds- give over 1 hour time frame for each feed Question Answer Comment Diet type Regular Tube feeding formula: Vital 1.5 Feeding route: PEG (percutaneous endoscopic gastric) Tube feeding bolus (mL): 250 4 x/day Tube feeding flush (mL): 120 Flush type: Water Water type: Tap water Flush frequency: Other (specify) Additional Details 3 x/day in between feeds 03/31/24 1252 Estimated Needs: Total Energy Estimated Needs (kCal): (~1400 kcal (30 kcal/kg)) Total Protein Estimated Needs (g): (55-70 g protein (1.2-1.5 g/kg)) Total Fluid Estimated Needs (mL): (1 ml/kcal or per MD) Nutrition Diagnosis Malnutrition Diagnosis Patient has Malnutrition Diagnosis: Yes Diagnosis Status: Ongoing Malnutrition Diagnosis: Severe malnutrition related to acute disease or injury As Evidenced by: loss of muscle and adipose stores per NFPE; consuming less than 50% of estimated energy requirements >/= 5 days Additional Assessment Information: Plan to resume PEG tube feeds; EGD 03/31/24 Nutrition Interventions/Recommendations Nutrition Prescription: diet, EN, fluids Nutrition Interventions: Interventions: Enteral intake Goal: 1 can Vital 1.5 bolus via PEG tube 4 x/day, 30 ml water flush pre/post feed, additional 120 ml FWF 3 x/day in between feeds provides 1440 kcal, 64 g protein, 730 ml free water in 948 ml volume of TF; additional 120 ml FWF 3 x/day= 1330 ml total free water/24 hours; may need to adjust water flush based on patient ability to take oral diet/liquids. Coordination of Care: MONSE JorgeTCC, MONSE BillyTCC, Vickie, RN; Nanette, RN; Dr. Alanis, Dr. Brannon (resident) Nutrition Education: N/A Recommendations: Encourage oral intakes Resume bolus TF of Vital 1.5- 250 ml 4 x/day; 30 ml water flush pre/post feed; additional 120 ml water flush 3 x/day in between feeds Weights: 2-3 x/week RFP, Mg daily; replete lytes prn Nutrition Monitoring and Evaluation Food/Nutrient Related History Monitoring Monitoring and Evaluation Plan: Enteral and parenteral nutrition intake Criteria: Pt will tolerate TF of 1 can 4 x/day bolus via PEG tube over next 3-4 days Body Composition/Growth/Weight History Monitoring and Evaluation Plan: Weight Weight: Measured weight Criteria: Monitor weights as available Biochemical Data, Medical Tests and Procedures Monitoring and Evaluation Plan: Glucose/endocrine profile, Electrolyte/renal panel Criteria: Monitor labs as available Time Spent (min): 45 minutes * Juan Carlos Brannon DO - 03/31/2024 10:47 AM EDT Internal Medicine - Daily Progress Note Hospital Day: 4 Name:Leyla Lambert, AGE: 83 y.o., GENDER: female, , ROOM: [address] [place] [address] CODE STATUS: Full Code Attending Physician: Donnie Thorpe DO Resident: Juan Carlos Brannon DO Chief Complaint Chief Complaint Patient presents with Dizziness PT presents to the ER with dizziness that began this morning when she woke up. PT states that she has been feeling very weak and tired, Pts PCP wanted her to come get checked out. PT denies any chestpain or shortness of breath. PT has a hx of HTN and has been taking medications for this. 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 Subjective Leyla Lambert is a 83 y.o. year old female patient on Hospital Day: 4. Patient underwent EGD procedure today and received a botox injection delmi a Schatzki ring. Patient was recommended nocturnal tube feedings, but did not agree. She agreed to receive Vital 1.5 formula with bolus feeds during the day. Patient denies any diarrhea today and is resting comfortably on her pain medication. Her BP has remained stable on current regiment. No other complaints at this time Overnight events: NAOE Meds Scheduled medications [Held by provider] apixaban, 2.5 mg, oral, BID azelastine, 2 spray, Each Nostril, BID calcium carbonate, 500 mg, oral, BID carbidopa-levodopa, 1 tablet, oral, Nightly [Held by provider] clopidogrel, 75 mg, oral, Daily famotidine, 40 mg, oral, Daily [Held by provider] fludrocortisone, 0.1 mg, oral, Daily fluticasone, 2 spray, Each Nostril, Daily tiotropium, 2 puff, inhalation, Daily And fluticasone furoate-vilanteroL, 1 puff, inhalation, Daily furosemide, 20 mg, oral, Daily hydrALAZINE, 25 mg, oral, q8h lactated Ringer's, 500 mL, intravenous, Once levothyroxine, 112 mcg, oral, Daily lidocaine, 0.1 mL, subcutaneous, Once metoprolol succinate XL, 100 mg, oral, Daily montelukast, 10 mg, oral, Nightly roflumilast, 500 mcg, oral, Daily thiamine, 100 mg, g-tube, Daily traZODone, 150 mg, oral, Nightly Continuous medications PRN medications PRN medications: acetaminophen OR acetaminophen OR acetaminophen, HYDROmorphone, labetaloL,ondansetron ODT OR ondansetron, oxyCODONE, oxyCODONE, oxygen, oxygen, polyethylene glycol, prochlorperazine OR prochlorperazine OR prochlorperazine Objective GEN: Weak, frail A&Ox3, no acute distress, uncomfortable due to lower back pain. Conversationaland appropriate. No confusion or gross mental status changes. EYES: EOMI, non-injected sclera. CARDIO: Normal rate and regular rhythm. No murmurs, rubs, or gallops. 2+ equal pulses of the distalextremities. PULM: Clear to auscultation bilaterally. No rales, rhonchi, or wheezes. Good symmetric chest expansion. GI: PEG tube appreciated no erythema or edema noted SKIN: Warm and dry, no rashes or lesions. MSK: ROM intact the extremities without contractures. EXT: No peripheral edema, contusions, or wounds. NEURO: Cranial nerves II-XII grossly intact. PSYCH: Appropriate mood and behavior, converses and responds appropriately during exam. Visit Vitals BP 141/57 (BP Location: Right arm, Patient Position: Lying) Pulse 64 Temp 37.1 C (98.8 F) (Temporal) Resp 12 Ht 1.6 m (5' 3 ) Wt 46.6 kg (102 lb 11.8 oz) SpO2 94% BMI 18.20 kg/m Smoking Status Never BSA 1.44 m Intake/Output Summary (Last 24 hours) at 03/31/2024 1048 Last data filed at 03/31/2024 1016 Gross per 24 hour Intake 1050 ml Output -- Net 1050 ml Labs: Results from last 72 hours Lab Units 03/31/2451103/30/2475203/29/24 0724 SODIUM mmol/L 139 140 141 POTASSIUM mmol/L 3.9 3.8 4.5 CHLORIDE mmol/L 106 106 104 CO2 mmol/L 27 25 28 BUN mg/dL 40* 27* 24* CREATININE mg/dL 1.04 0.99 0.96 GLUCOSE mg/dL 93 88 96 CALCIUM mg/dL 7.5* 7.1* 7.8* ANION GAP mmol/L 10 13 14 EGFR mL/min/1.73m*2 53* 56* 58* PHOSPHORUS mg/dL 2.5 2.7 4.6 Results from last 72 hours Lab Units 03/31/2451103/30/2475203/29/24 0724 03/28/24 1403 WBC AUTO x10*3/uL 5.6 5.9 6.8 7.1 HEMOGLOBIN g/dL 9.3* 9.7* 10.1* 10.4* HEMATOCRIT % 30.4* 31.2* 33.1* 34.6* PLATELETS AUTO x10*3/uL 273 285 289 324 NEUTROS PCT AUTO % -- -- -- 66.8 LYMPHS PCT AUTO % -- -- -- 19.6 MONOS PCT AUTO % -- -- -- 9.8 EOS PCT AUTO % -- -- -- 2.5 Lab Results Component Value Date CALCIUM 7.5 (L) 03/31/2024 PHOS 2.5 03/31/2024 No results found for: CRP @LABRESULTGRID@ Micro/ID: No results found for the last 90 days. No lab exists for component: AGALPCRNB No results found for: URINECULTURE , BLOODCULT , CSFCULTSMEAR Images Esophagogastroduodenoscopy (EGD) w Dilation TTS Result Date: 03/31/2024 Table formatting from the original result was [...] One sharp object in the cardia, successfully retrievedwith grasping forceps The body of the stomach and antrum appeared normal. The cardia appeared normal. The duodenum appeared normal. Recommendation Follow up with me in clinic Chew well and eat slowlyDo tube feeds at night Take small bites and wash food down with liquid Area injected with botox just above the z line and ridge seemed to soften up. Get tube feed cycled at night Eat what you can in day See ent and speech therapy about the modified barium swallow Indication Gastroesophageal reflux disease, unspecified whether esophagitis present Staff Staff Role Nolan Julio MD MPH Proceduralist Medications See Anesthesia [...] STOMACH Tissue FOREIGN BODY(S) SURGICAL PATHOLOGY EXAM Nolan Julio MD MPH 03/31/2024 0831 Procedure Location [address] [address] Referring Provider Rock Alanis MD Procedure Provider Nolan Julio MD MPH ECG 12 lead Result Date: 03/29/2024 Atrial-paced rhythm Left axis deviation Voltage criteria for left ventricular hypertrophy Abnormal ECG When compared with ECG of 03-JUL-2020 15:36, QRS axis Shifted left See ED provider note for fullinterpretation and clinical correlation Confirmed by Tami Barragan ([id number]) on 03/29/2024 6:06:09 PM FL modified barium swallow study Result Date: 03/29/2024 Interpreted By: Kelsey Farias and Mayer Katherine STUDY: FL MODIFIED BARIUM SWALLOW STUDY;; 03/29/2024 8:59 am INDICATION: Signs/Symptoms:Dysphagia. COMPARISON: Chest radiographs 03/28/2024 ACCESSION NUMBER(S): [id number] ORDERING CLINICIAN: DONNIE THORPE TECHNIQUE: Modified Barium Swallow Study completed. Informed verbal consent obtained prior to completion of exam. Trials of thin, nectar/mildly thick liquid, honey/moderately thick liquid, puree solids were given. [employer]: MOLLY Ortega Contact info: [employer] Fluoroscopy time: 1:13 SPEECH FINDINGS: Reason for Referral: dysphagia Patient Hx: Achalasia with history of PEG for nutrition. Recent dilation of esophagus. Respiratory Status: Room air Current diet: pleasure feeds only, unable to tolerate same for 2 weeks Pain: Pain Scale: 0-10 Ratin FINAL SPEECH RECOMMENDATIONS DIET: NPO for nutrition, hydration and medication. Occasional pleasure feeds as tolerated. Plan: [employer] Plan: No treatment needs identified at thistime Discussed POC: Patient Discussed Risks/Benefits: Yes Patient/Caregiver Agreeable: Yes Education Provided: Results and recommendations per MBSS, with video review; recommendations and POC at thistime. Verbal understanding and agreement given on all accounts. Treatment Provided Today: no Additional consult suggested: GI for evaluation / treatment of esophagus as indicated Repeat study/ dc plan: n/a Mechanics of the Swallow Summary: ORAL PHASE: Lip Closure - Interlabial escape/no progressionto anterior lip Tongue Control During Bolus Hold - Escape to lateral buccal cavity and/or floor of mouth Bolus prep/mastication - Mastication not assessed Bolus transport/lingual motion - Brisk tongue motion for A-P movement of the bolus Oral residue - Residue collection on oral structure PHARYNGEAL PHASE: Initiation of pharyngeal swallow - Bolus head at vallecular pit Soft palate elevation - No bolus between soft palate/pharyngeal wall Laryngeal elevation - Complete superior movement of thyroid cartilage with contact of arytenoids to epiglottic petiole Anterior hyoid excursion - Partial anterior movement Epiglottic movement - Complete inversion Laryngeal vestibule closure - Complete - no air/contrast in laryngeal vestibule Pharyngeal stripping wave - Present, however, diminished Pharyngeal contraction (A/P view) - Not tested Pharyngoesophageal segment opening - Partial distension/partial duration with partial obstruction of flow of bolus Tongue base retraction - Trace column of contrast or air between tongue base and pharyngeal wall Pharyngeal residue - Trace residue within or on the pharyngeal structures ESOPHAGEAL PHASE: Esophageal clearance - Minimal to no esophageal clearanceSLP Impressions with Severity Rating: Pt presents with no significant oropharyngeal dysphagia upon completion of modified barium swallow study this date. Swallowing physiology is detailed above. Severe esophageal dysphagia apparent. OUTCOME MEASURES: Functional Oral Intake Scale Functional Oral Intake Scale: Level 2 tube dependent with minimal attempts of food and liquid Rosenbek's Penetration Aspiration Scale Thin Liquids: 2. PENETRATION that CLEARS - contrast enter airway, above vocal cords, no residue [place] Thick Liquids: 2. PENETRATION that CLEARS - contrast enter airway, above vocal cords, no residue Honey Thick Liquids: 1. NO ASPIRATION & NO PENETRATION - no aspiration, contrast does not enter airway Speech Therapy section of this report signed by Tami Neely MS, CCC/[employer] on 03/29/2024 at 9:08 am. 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 Age indeterminate mild T12 anterior wedging. Radiology section of this report signed by Dr. Kelsey Farias DO. Modified barium swallow study as detailed within the report. MACRO: None Signed by: Kelsey Farias 03/29/2024 5:37 PM Dictation workstation: [id number] Electrocardiogram, 12-lead PRN ACS symptoms Result Date: 03/29/2024 Normal sinus rhythm Left ventricular hypertrophy with repolarization abnormality Cannot rule out Septal infarct , age undetermined Abnormal ECG When compared with ECG of 28-MAR-2024 11:41, (unconfirmed) Sinus rhythm has replaced Electronic atrial pacemaker QRS axis Shifted right XR chest 1 view Result Date: 03/28/2024 Interpreted By: Reyna Jin, STUDY: XR CHEST 1 VIEW; 03/28/2024 2:17 pm INDICATION: Signs/Symptoms:difficulty swallowing. COMPARISON: 11/29/2021. ACCESSION NUMBER(S): [id number] ORDERING CLINICIAN: MALORIE MALDONADO FINDINGS: CARDIOMEDIASTINAL SILHOUETTE: Aortic stent is now seen extending from the proximal ascending aorta level to the distal descending aorta level. Cardiac silhouette is enlarged. Left-sided dual lead cardiac pacing device again seen. Coronary artery calcifications and/or stents again seen. LUNGS: Inspiratory volume is lower. Irregular interstitial thickening is present throughout both lungs. Mild bibasilar atelectasis or scarring is present. No definite pleural effusion. No appreciable pneumothorax. ABDOMEN: No remarkable upper abdominal findings. BONES: Lower thoracic mild dextrocurvature is present. Degenerative changes of the shoulders are partially visualized. 1. Cardiomegaly. Ascending and descending aortic stent now present. 2. Irregular interstitial thickening bilaterally may be chronic. Interstitial edema and atypical infection not excluded. 3. Mild bibasilar atelectasis or scarring. MACRO: None. Signed by: Reyna Jin 03/28/2024 2:47 PM Dictation workstation: [id number] XR lumbar spine 2-3 views Result Date: 03/17/2024 THIS EXAM WAS PERFORMED AT [facility] HISTORY: An 83 year old female with the history of the chroniclow back pain and increase in severity. TECHNIQUE: [...] cava filter is seen. There are aortic ca lcifications. IMPRESSION: * Old compression deformity of the superior endplate of the T12. Lumbar vertebrae are normal in heights. * No evidence of spondylolisthesis or other acute bony pathology. 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 Finalized by Jayson Subramanian MD on 03/17/2024 10:15 PM XR lumbar spine 2-3 views Result Date: 03/17/2024 HISTORY: An 83 year old female with [...] Jayson Subramanian MD on 03/17/2024 10:15 PM Assessment and Plan Leyla Lambert is a 83 y.o. 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 ACUTE MEDICAL ISSUES: #Uncontrolled hypertension/hypertensive urgency in the setting of worsening back pain with an intensity of 9 out of 10 -Blood pressure has been well-controlled -Will continue her home hydralazine 25 mg every 8 hours -Will consider labetalol 20 to 80 mg IV bolus every 10 minutes/4 hours as needed SBP over 100 -May give hydralazine 10 mg every 4 hours if systolic blood pressure above 165 diastolic blood pressure above 100 with consideration for rebound hypertension -If blood pressure is not controlled we will have to transfer the patient to the ICU for a nicardipine drip at 5 mg/h -Continue home furosemide 20 mg daily IV #Worsening low back pain -Chronic in nature but worse likely driving her blood pressure. -Received one dose of PRN oxycodone today, resting comfortably -Pain meds in place: - Tylenol 650 mg Q4Hr prn for mild pain - Oxycodone 5mg moderate pain - Oxycodone 10 mg severe pain - Dilaudid for breakthrough pain #Dysphagia/PEG dependent #Nausea/vomiting, likely related to dysphagia -Patient PEG dependent. Patient is receiving enteral tube feedings -Modified barium swallow demonstrated esophageal dysphagia -Compazine and Zofran 4 mg IV every 6 hours as needed -Bariatric surgery on board,performed EGD with botulinum injection at [facility] Plan: -Ordered UGI Esophagram per Bariatric surgery reccs -Restarted diet with nutrition consult -Will restart her anticoagulation tomorrow morning CHRONIC MEDICAL ISSUES: #A-fib/aortic stent/CAD: Continue metoprolol succinate XL 100 mg every 24, Eliquis 2.5 mg twice daily, continue Plavix 75 mg daily (prevention status post percutaneous coronary intervention) #Hypothyroidism: Continue levothyroxine 112 mcg daily #COPD/asthma: Continue Trelegy Ellipta 100-60 2.5-25 mcg, Singulair 10 mg once daily #Parkinson's: Continue Sinemet #Dizziness/lightheadedness: Will hold home Dianna IVF: PRN Nutrition: Enteral tube feeding, nutrition consult Electrolytes: Replete as needed Diet: N.p.o. GI ppx: PPI DVT ppx: Eliquis/SCD Antibiotics: None Lines: 1 PIV Emergency Contact: Extended Emergency Contact Information Primary Emergency Contact: Adam Lambert Relation: Spouse Code: Full Code Disposition: Tomorrow pending surgery clearance Juan Carlos Brannon DO Internal Medicine, PGY- 1 03/31/24 at 10:48 AM Associated attestation - Donnie Thorpe DO - 03/31/2024 1:58 PM EDT I saw and evaluated the patient. I personally obtained the carvalho and critical portions of the historyand physical exam or was physically present for carvalho and critical portions performed by the resident/fellow. I reviewed the resident/fellow's documentation and discussed the patient with the resident/f get. I agree with the resident/fellow's medical decision making as documented in the note. 83 yo F with a hx of achalasia s/p multiple dilations, aortic dissection s/p stent, who is admittedat the request of her bariatric surgeon. She underwent MBS yesterday but had to be aborted as she was not passing the contrast through her esophagus. Plan is to take her for EGD today, with possible DC tomorrow based on EGD findings. Donnie Thorpe DO * Juna Carlos Brannon DO - 03/30/2024 3:36 PM EDT Internal Medicine - Daily Progress Note Hospital Day: 3 Name:Leyla Lambert, AGE: 83 y.o., GENDER: female, , ROOM: [address] [place] [address] CODE STATUS: Full Code Attending Physician: Donnie Thorpe DO Resident: Juan Carlos Brannon DO Chief Complaint Chief Complaint Patient presents with Dizziness PT presents to the ER with dizziness that began this morning when she woke up. PT states that she has been feeling very weak and tired, Pts PCP wanted her to come get checked out. PT denies any chestpain or shortness of breath. PT has a hx of HTN and has been taking medications for this. 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 Subjective Leyla Lambert is a 83 y.o. year old female patient on Hospital Day: 3 reports improvement of back and hip pain. She received an additional dose of hydromorphone and oxycodone today. BP has not been elevated today with her current regiment. The patient had concerns about experiencing diarrhea with her enteral tube feedings. The patient has not had any loose stools currently. The patient eventually agreed to receive enteral feeding and was informed to call the nurse if she experiences nausea or vomiting. The patient is scheduled to undergo an EGD tomorrow and will be placed NPO after midnight. Overnight events: NAOE Meds Scheduled medications [Held by provider] apixaban, 2.5 mg, oral, BID azelastine, 2 spray, Each Nostril, BID calcium carbonate, 500 mg, oral, BID carbidopa-levodopa, 1 tablet, oral, Nightly [Held by provider] clopidogrel, 75 mg, oral, Daily famotidine, 40 mg, oral, Daily [Held by provider] fludrocortisone, 0.1 mg, oral, Daily fluticasone, 2 spray, Each Nostril, Daily tiotropium, 2 puff, inhalation, Daily And fluticasone furoate-vilanteroL, 1 puff, inhalation, Daily furosemide, 20 mg, oral, Daily heparin (porcine), 5,000 Units, subcutaneous, q8h hydrALAZINE, 25 mg, oral, q8h lactated Ringer's, 500 mL, intravenous, Once levothyroxine, 112 mcg, oral, Daily metoprolol succinate XL, 100 mg, oral, Daily montelukast, 10 mg, oral, Nightly polyethylene glycol, 17 g, oral, Daily roflumilast, 500 mcg, oral, Daily thiamine, 100 mg, g-tube, Daily traZODone, 150 mg, oral, Nightly Continuous medications PRN medications PRN medications: acetaminophen OR acetaminophen OR acetaminophen, HYDROmorphone, labetaloL,ondansetron ODT OR ondansetron, oxyCODONE, oxyCODONE, oxygen, prochlorperazine OR prochlorperazine OR prochlorperazine Objective GEN: Weak, frail A&Ox3, no acute distress, uncomfortable due to lower back pain. Conversationaland appropriate. No confusion or gross mental status changes. EYES: EOMI, non-injected sclera. CARDIO: Normal rate and regular rhythm. No murmurs, rubs, or gallops. 2+ equal pulses of the distalextremities. PULM: Clear to auscultation bilaterally. No rales, rhonchi, or wheezes. Good symmetric chest expansion. GI: PEG tube appreciated no erythema or edema noted SKIN: Warm and dry, no rashes or lesions. MSK: ROM intact the extremities without contractures. EXT: No peripheral edema, contusions, or wounds. NEURO: Cranial nerves II-XII grossly intact. PSYCH: Appropriate mood and behavior, converses and responds appropriately during exam. Visit Vitals BP (!) 110/48 (BP Location: Left arm, Patient Position: Lying) Pulse 74 Temp 36.6 C (97.9 F) (Temporal) Resp 18 Ht 1.6 m (5' 3 ) Wt 46.6 kg (102 lb 11.8 oz) SpO2 96% BMI 18.20 kg/m Smoking Status Never BSA 1.44 m Intake/Output Summary (Last 24 hours) at 03/30/2024 1536 Last data filed at 03/30/2024 1211 Gross per 24 hour Intake 370 ml Output -- Net 370 ml Labs: Results from last 72 hours Lab Units 03/30/24 07503/29/24 0703/28/24 1403 SODIUM mmol/L 140 141 141 POTASSIUM mmol/L 3.8 4.5 4.9 CHLORIDE mmol/L 106 104 103 CO2 mmol/L 25 28 29 BUN mg/dL 27* 24* 25* CREATININE mg/dL 0.99 0.96 1.10* GLUCOSE mg/dL 88 96 94 CALCIUM mg/dL 7.1* 7.8* 9.3 ANION GAP mmol/L EGFR mL/min/1.73m*2 56* 58* 50* PHOSPHORUS mg/dL 2.7 4.6 -- Results from last 72 hours Lab Units 03/30/24 07503/29/24 0724 03/28/24 1403 WBC AUTO x10*3/uL 5.9 6.8 7.1 HEMOGLOBIN g/dL 9.7* 10.1* 10.4* HEMATOCRIT % 31.2* 33.1* 34.6* PLATELETS AUTO x10*3/uL 285 289 324 NEUTROS PCT AUTO % -- -- 66.8 LYMPHS PCT AUTO % -- -- 19.6 MONOS PCT AUTO % -- -- 9.8 EOS PCT AUTO % -- -- 2.5 Lab Results Component Value Date CALCIUM 7.1 (L) 03/30/2024 PHOS 2.7 03/30/2024 No results found for: CRP @LABRESULTGRID@ Micro/ID: No results found for the last 90 days. No lab exists for component: AGALPCRNB No results found for: URINECULTURE , BLOODCULT , CSFCULTSMEAR Images ECG 12 lead Result Date: 03/29/2024 Atrial-paced rhythm Left axis deviation Voltage criteria for left ventricular hypertrophy Abnormal ECG When compared with ECG of 03-JUL-2020 15:36, QRS axis Shifted left See ED provider note for fullinterpretation and clinical correlation Confirmed by Tami Barragan ([id number]) on 03/29/2024 6:06:09 PM FL modified barium swallow study Result Date: 03/29/2024 Interpreted By: Kelsey Farias and Mayer Katherine STUDY: FL MODIFIED BARIUM SWALLOW STUDY;; 03/29/2024 8:59 am INDICATION: Signs/Symptoms:Dysphagia. COMPARISON: Chest radiographs 03/28/2024 ACCESSION NUMBER(S): [id number] ORDERING CLINICIAN: DONNIE THORPE TECHNIQUE: Modified Barium Swallow Study completed. Informed verbal consent obtained prior to completion of exam. Trials of thin, nectar/mildly thick liquid, honey/moderately thick liquid, puree solids were given. [employer]: Tami Neely, [employer] Contact info: [facility] chat Fluoroscopy time: 1:13 SPEECH FINDINGS: Reason for Referral: dysphagia Patient Hx: Achalasia with history of PEG for nutrition. Recent dilation of esophagus. Respiratory Status: Room air Current diet: pleasure feeds only, unable to tolerate same for 2 weeks Pain: Pain Scale: 0-10 Ratin FINAL SPEECH RECOMMENDATIONS DIET: NPO for nutrition, hydration and medication. Occasional pleasure feeds as tolerated. Plan: [employer] Plan: No treatment needs identified at thistime Discussed POC: Patient Discussed Risks/Benefits: Yes Patient/Caregiver Agreeable: Yes Education Provided: Results and recommendations per MBSS, with video review; recommendations and POC at thistime. Verbal understanding and agreement given on all accounts. Treatment Provided Today: no Additional consult suggested: GI for evaluation / treatment of esophagus as indicated Repeat study/ dc plan: n/a Mechanics of the Swallow Summary: ORAL PHASE: Lip Closure - Interlabial escape/no progressionto anterior lip Tongue Control During Bolus Hold - Escape to lateral buccal cavity and/or floor of mouth Bolus prep/mastication - Mastication not assessed Bolus transport/lingual motion - Brisk tongue motion for A-P movement of the bolus Oral residue - Residue collection on oral structure PHARYNGEAL PHASE: Initiation of pharyngeal swallow - Bolus head at vallecular pit Soft palate elevation - No bolus between soft palate/pharyngeal wall Laryngeal elevation - Complete superior movement of thyroid cartilage with contact of arytenoids to epiglottic petiole Anterior hyoid excursion - Partial anterior movement Epiglottic movement - Complete inversion Laryngeal vestibule closure - Complete - no air/contrast in laryngeal vestibule Pharyngeal stripping wave - Present, however, diminished Pharyngeal contraction (A/P view) - Not tested Pharyngoesophageal segment opening - Partial distension/partial duration with partial obstruction of flow of bolus Tongue base retraction - Trace column of contrast or air between tongue base and pharyngeal wall Pharyngeal residue - Trace residue within or on the pharyngeal structures ESOPHAGEAL PHASE: Esophageal clearance - Minimal to no esophageal clearanceSLP Impressions with Severity Rating: Pt presents with no significant oropharyngeal dysphagia upon completion of modified barium swallow study this date. Swallowing physiology is detailed above. Severe esophageal dysphagia apparent. OUTCOME MEASURES: Functional Oral Intake Scale Functional Oral Intake Scale: Level 2 tube dependent with minimal attempts of food and liquid Rosenbek's Penetration Aspiration Scale Thin Liquids: 2. PENETRATION that CLEARS - contrast enter airway, above vocal cords, no residue [place] Thick Liquids: 2. PENETRATION that CLEARS - contrast enter airway, above vocal cords, no residue Honey Thick Liquids: 1. NO ASPIRATION & NO PENETRATION - no aspiration, contrast does not enter airway Speech Therapy section of this report signed by Tami Neely MS, CCC/[employer] on 03/29/2024 at 9:08 am. 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 Age indeterminate mild T12 anterior wedging. Radiology section of this report signed by Dr. Kelsey Farias DO. Modified barium swallow study as detailed within the report. MACRO: None Signed by: Kelsey Farias 03/29/2024 5:37 PM Dictation workstation: [id number] Electrocardiogram, 12-lead PRN ACS symptoms Result Date: 03/29/2024 Normal sinus rhythm Left ventricular hypertrophy with repolarization abnormality Cannot rule out Septal infarct , age undetermined Abnormal ECG When compared with ECG of 28-MAR-2024 11:41, (unconfirmed) Sinus rhythm has replaced Electronic atrial pacemaker QRS axis Shifted right XR chest 1 view Result Date: 03/28/2024 Interpreted By: Reyan Jin, STUDY: XR CHEST 1 VIEW; 03/28/2024 2:17 pm INDICATION: Signs/Symptoms:difficulty swallowing. COMPARISON: 11/29/2021. ACCESSION NUMBER(S): [id number] ORDERING CLINICIAN: MALORIE MALDONADO FINDINGS: CARDIOMEDIASTINAL SILHOUETTE: Aortic stent is now seen extending from the proximal ascending aorta level to the distal descending aorta level. Cardiac silhouette is enlarged. Left-sided dual lead cardiac pacing device again seen. Coronary artery calcifications and/or stents again seen. LUNGS: Inspiratory volume is lower. Irregular interstitial thickening is present throughout both lungs. Mild bibasilar atelectasis or scarring is present. No definite pleural effusion. No appreciable pneumothorax. ABDOMEN: No remarkable upper abdominal findings. BONES: Lower thoracic mild dextrocurvature is present. Degenerative changes of the shoulders are partially visualized. 1. Cardiomegaly. Ascending and descending aortic stent now present. 2. Irregular interstitial thickening bilaterally may be chronic. Interstitial edema and atypical infection not excluded. 3. Mild bibasilar atelectasis or scarring. MACRO: None. Signed by: Reyna Jin 03/28/2024 2:47 PM Dictation workstation: [id number] XR lumbar spine 2-3 views Result Date: 03/17/2024 THIS EXAM WAS PERFORMED AT [facility] HISTORY: An 83 year old female with the history of the chroniclow back pain and increase in severity. TECHNIQUE: [...] cava filter is seen. There are aortic ca lcifications. IMPRESSION: * Old compression deformity of the superior endplate of the T12. Lumbar vertebrae are normal in heights. * No evidence of spondylolisthesis or other acute bony pathology. 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 Finalized by Jasyon Subramanian MD on 03/17/2024 10:15 PM XR lumbar spine 2-3 views Result Date: 03/17/2024 HISTORY: An 83 year old female with [...] Jayson Subramanian MD on 03/17/2024 10:15 PM Assessment and Plan Leyla Lambert is a 83 y.o. 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 ACUTE MEDICAL ISSUES: #Uncontrolled hypertension/hypertensive urgency in the setting of worsening back pain with an intensity of 9 out of 10 -Blood pressure has been well-controlled -did not require PRN medication for blood pressure today -Will continue her home hydralazine 25 mg every 8 hours -Will consider labetalol 20 to 80 mg IV bolus every 10 minutes/4 hours as needed SBP over 100 -May give hydralazine 10 mg every 4 hours if systolic blood pressure above 165 diastolic blood pressure above 100 with consideration for rebound hypertension -If blood pressure is not controlled we will have to transfer the patient to the ICU for a nicardipine drip at 5 mg/h -Continue home furosemide 20 mg daily IV #Worsening low back pain -Chronic in nature but worse likely driving her blood pressure. -Currently improved with one dose of oxycodone and hydromorphone PRN -Pain meds in place: - Tylenol 650 mg Q4Hr prn for mild pain - Oxycodone 5mg moderate pain - Oxycodone 10 mg severe pain - Dilaudid for breakthrough pain #Dysphagia/PEG dependent #Nausea/vomiting, likely related to dysphagia -Patient PEG dependent. Nutrition consulted on board. Patient is receiving enteral tube feedings -Modified barium swallow demonstrated esophageal dysphagia -Compazine and Zofran 4 mg IV every 6 hours as needed -Bariatric surgery on board, recommended EGD tomorrow -NPO at midnight CHRONIC MEDICAL ISSUES: #A-fib/aortic stent/CAD: Continue metoprolol succinate XL 100 mg every 24, Eliquis 2.5 mg twice daily, continue Plavix 75 mg daily (prevention status post percutaneous coronary intervention) #Hypothyroidism: Continue levothyroxine 112 mcg daily #COPD/asthma: Continue Trelegy Ellipta 100-60 2.5-25 mcg, Singulair 10 mg once daily #Parkinson's: Continue Sinemet #Dizziness/lightheadedness: Will hold home Florinef IVF: PRN Electrolytes: Replete as needed Diet: N.p.o. GI ppx: PPI DVT ppx: Eliquis/SCD Antibiotics: None Lines: 1 PIV Code: Full Code Emergency Contact: Extended Emergency Contact Information Primary Emergency Contact: Adam Lambert Relation: Spouse Code: Full Code Disposition: Thursday pending EGD Juan Carlos Brannon DO Internal Medicine, PGY- 1 03/30/24 at 3:36 PM Associated attestation - Donnie Thorpe DO - 03/31/2024 11:37 AM EDT I saw and evaluated the patient. I personally obtained the carvalho and critical portions of the historyand physical exam or was physically present for carvalho and critical portions performed by the resident/fellow. I reviewed the resident/fellow's documentation and discussed the patient with the resident/f get. I agree with the resident/fellow's medical decision making as documented in the note. 83 yo F with a hx of achalasia s/p multiple dilations, aortic dissection s/p stent, who is admittedat the request of her bariatric surgeon. She underwent MBS yesterday but had to be aborted as she was not passing the contrast through her esophagus. Plan is to take her for EGD on . Eliquis,plavix held now. Tube feeds to be held at midnight. Donnie Thorpe, DO * Rock Alanis MD - 03/30/2024 1:07 PM EDT Leyla Lambert is a 83 y.o. female on day 2 of admission presenting with Dysphagia. Subjective Patient seen and evaluated at bedside. Afebrile with stable hemodynamics. Tube feeds running currently, which patient is tolerating. Denies any nausea or vomiting today. Endorsing flatus. Patient educated on the importance of excepting her tube feeds. States that she can eat sherbet and popsicles. E ncouraged what ever oral intake the patient can tolerate. Objective Constitutional: thin, wake/alert/oriented x3, in pain, alert and cooperative Eyes: PERRL, EOMI, clear sclera Head/Neck: Neck supple, no apparent injury, No JVD, trachea midline Respiratory/Thorax: good chest expansion, thorax symmetric Cardiovascular: Regular, rate and rhythm, 2+ equal pulses of the extremities Gastrointestinal: Nondistended, soft, feeding tube in place Musculoskeletal: ROM intact, no joint swelling, normal strength Extremities: normal extremities, no cyanosis edema, contusions or wounds, no clubbing Neurological: alert and oriented x3, intact senses, Psychological: Appropriate mood and behavior Skin: Warm and dry, no lesions, no rashes Last Recorded Vitals Blood pressure 167/70, pulse 77, temperature 37 C (98.6 F), temperature source Temporal, resp. rate18, height 1.6 m (5' 3 ), weight 46.6 kg (102 lb 11.8 oz), SpO2 93%. Intake/Output last 3 Shifts: I/O last 3 completed shifts: In: 250 (5.4 mL/kg) [P.O.:250] Out: - (0 mL/kg) Weight: 46.6 kg Relevant Results Malnutrition Diagnosis Status: New Malnutrition Diagnosis: Severe malnutrition related to acute disease or injury As Evidenced by: loss of muscle and adipose stores per NFPE; consuming less than 50% of estimated energy requirements >/= 5 days I agree with the dietitian's malnutrition diagnosis. Assessment/Plan Principal Problem: Dysphagia Active Problems: Dysphagia, unspecified type 83-year-old female with with history of achalasia status post robotic Heller myotomy and Toupet fundoplication in 05/2023, s/p EGD with dilation in 08/2023, s/p endovascular intervention for aortic dissection and placement of PEG in 01/2024 with persistent dysphagia and poor PO/feeding tube tolerance. Also found to be dizzy in the office and hypertensive in the ED. Plan is as follows after admission to hospitalist service. Get nutrition 4-5 times/day. Try metamucil for the diarrhea. Just take twice/day. See if helps. Try putting chin to chest when drinking. Continue to hold anticoagulation and antiplatelets for planned endoscopic intervention on ,03/31/2024 Try some saltine crackers when you get the foam. Stay upright after meals. Modified barium swallow reviewed, clear transit of contrast material evident with delayed transit distally, some retention of contrast material at the upper sphincter, no signs of aspiration Get the esophagram pushed over in pacs from [facility] Discharge planning, anticipate discharge by 04/01/2024 after endoscopic interventions tomorrow please ensure tube feeds are held and patient is n.p.o. at midnight, with ongoing maintenance IV fluids at that time I spent 45 minutes in the professional and overall care of this patient. Rock Alanis MD * Ania London RN - 03/30/2024 11:09 AM EDT 03/30/24 1108 Discharge Planning Living Arrangements Spouse/significant other Support Systems Spouse/significant other Assistance Needed patient reports independence in ADL's, uses a rollator, room air, does not drive-spouse does, PEG tube with TF (unknown supplier- reports she has all needed supplies) Type of Residence Private residence Number of Stairs to Enter Residence 0 Number of Stairs Within Residence 0 Do you have animals or pets at home? No Who is requesting discharge planning? Provider Home or Post Acute Services None Expected Discharge Disposition Home Does the patient need discharge transport arranged? No * Rock Alanis MD - 03/29/2024 1:24 PM EDT Leyla Lambert is a 83 y.o. female on day 1 of admission presenting with Dysphagia. Subjective Patient seen and evaluated at bedside. Hypertension controlled by interventions from hospitalist team. Patient with 1 episode of spitting up thick foamy saliva, as she has been doing. Tube feedings to be initiated today. Anticoagulation/antiplatelets held. Modified barium swallow reviewed. Objective Constitutional: thin, wake/alert/oriented x3, in pain, alert and cooperative Eyes: PERRL, EOMI, clear sclera Head/Neck: Neck supple, no apparent injury, No JVD, trachea midline Respiratory/Thorax: good chest expansion, thorax symmetric Cardiovascular: Regular, rate and rhythm, 2+ equal pulses of the extremities Gastrointestinal: Nondistended, soft, feeding tube in place Musculoskeletal: ROM intact, no joint swelling, normal strength Extremities: normal extremities, no cyanosis edema, contusions or wounds, no clubbing Neurological: alert and oriented x3, intact senses, Psychological: Appropriate mood and behavior Skin: Warm and dry, no lesions, no rashes Last Recorded Vitals Blood pressure 156/75, pulse 67, temperature 36.6 C (97.9 F), temperature source Temporal, resp. rate 18, height 1.6 m (5' 3 ), weight 46.6 kg (102 lb 11.8 oz), SpO2 100%. Intake/Output last 3 Shifts: No intake/output data recorded. Relevant Results Malnutrition Diagnosis Status: New Malnutrition Diagnosis: Severe malnutrition related to acute disease or injury As Evidenced by: loss of muscle and adipose stores per NFPE; consuming less than 50% of estimated energy requirements >/= 5 days I agree with the dietitian's malnutrition diagnosis. Assessment/Plan Principal Problem: Dysphagia Active Problems: Dysphagia, unspecified type 83-year-old female with with history of achalasia status post robotic Heller myotomy and Toupet fundoplication in 05/2023, s/p EGD with dilation in 08/2023, s/p endovascular intervention for aortic dissection and placement of PEG in 01/2024 with persistent dysphagia and poor PO/feeding tube tolerance. Also found to be dizzy in the office and hypertensive in the ED. Plan is as follows after admission to hospitalist service. Get nutrition 4-5 times/day. Try metamucil for the diarrhea. Just take twice/day. See if helps. Try putting chin to chest when drinking. Continue to hold anticoagulation and antiplatelets for planned endoscopic intervention on ,03/31/2024 Try some saltine crackers when you get the foam. Stay upright after meals. Modified barium swallow reviewed, clear transit of contrast material evident with delayed transit distally, some retention of contrast material at the upper sphincter, no signs of aspiration Obtain [employer] consult Get the esophagram pushed over in pacs from [facility] I spent 45 minutes in the professional and overall care of this patient. Rock Alanis MD * Savanna Avilez MD - 03/29/2024 11:28 AM EDT Internal Medicine-Progress Note Chief Complaint Chief Complaint Patient presents with Dizziness PT presents to the ER with dizziness that began this morning when she woke up. PT states that she has been feeling very weak and tired, Pts PCP wanted her to come get checked out. PT denies any chestpain or shortness of breath. PT has a hx of HTN and has been taking medications for this. 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 Subjective Patient seen and examined at the bedside continues to complain of hip pain much better today statuspost 10 mg of oxycodone, hydromorphone injection 0.2 mg. Throughout the night blood pressure was elevated although continues to be asymptomatic she was started on enalaprilat 1.25 the patient no new acute concerns or new complaints. Patient denies any recent illness, fever, chills, sweats, chest pain, SOB, cough, palpitations, N/V, abdominal pain, diarrhea, melena, hematochezia, or urinary symptoms. ROS otherwise negative. Objective Vitals Visit Vitals BP 168/79 (BP Location: Left arm, Patient Position: Lying) Pulse 68 Temp 36.6 C (97.9 F) (Temporal) Resp 18 Ht 1.6 m (5' 3 ) Wt 46.6 kg (102 lb 11.8 oz) SpO2 98% BMI 18.20 kg/m Smoking Status Never BSA 1.44 m Physical Examination: GEN: Weak, frail A&Ox3, no acute distress, uncomfortable due to lower back pain. Conversationaland appropriate. No confusion or gross mental status changes. EYES: EOMI, non-injected sclera. ENT: Moist mucous membranes, no apparent injuries or lesions. CARDIO: Normal rate and regular rhythm. No murmurs, rubs, or gallops. 2+ equal pulses of the distalextremities. PULM: Clear to auscultation bilaterally. No rales, rhonchi, or wheezes. Good symmetric chest expansion. GI: PEG tube appreciated no erythema or edema noted SKIN: Warm and dry, no rashes or lesions. MSK: ROM intact the extremities without contractures. EXT: No peripheral edema, contusions, or wounds. NEURO: Cranial nerves II-XII grossly intact. PSYCH: Appropriate mood and behavior, converses and responds appropriately during exam. IOs No intake or output data in the 24 hours ending 03/29/24 1129 Vent settings: Labs: Results from last 72 hours Lab Units 03/29/24 0724 03/28/24 1403 SODIUM mmol/L 141 141 POTASSIUM mmol/L 4.5 4.9 CHLORIDE mmol/L 104 103 CO2 mmol/L 28 29 BUN mg/dL 24* 25* CREATININE mg/dL 0.96 1.10* GLUCOSE mg/dL 96 94 CALCIUM mg/dL 7.8* 9.3 ANION GAP mmol/L 14 14 EGFR mL/min/1.73m*2 58* 50* PHOSPHORUS mg/dL 4.6 -- Results from last 72 hours Lab Units 03/29/24 0724 03/28/24 1403 WBC AUTO x10*3/uL 6.8 7.1 HEMOGLOBIN g/dL 10.1* 10.4* HEMATOCRIT % 33.1* 34.6* PLATELETS AUTO x10*3/uL 289 324 NEUTROS PCT AUTO % -- 66.8 LYMPHS PCT AUTO % -- 19.6 MONOS PCT AUTO % -- 9.8 EOS PCT AUTO % -- 2.5 Lab Results Component Value Date CALCIUM 7.8 (L) 03/29/2024 PHOS 4.6 03/29/2024 No results found for: CRP @LABRESULTGRID@ Micro/ID: No results found for the last 90 days. No lab exists for component: AGALPCRNB .ID No results found for: URINECULTURE , BLOODCULT , CSFCULTSMEAR Images Electrocardiogram, 12-lead PRN ACS symptoms Normal sinus rhythm Left ventricular hypertrophy with repolarization abnormality Cannot rule out Septal infarct , age undetermined Abnormal ECG When compared with ECG of 28-MAR-2024 11:41, (unconfirmed) Sinus rhythm has replaced Electronic atrial pacemaker QRS axis Shifted right Meds Scheduled medications apixaban, 2.5 mg, oral, BID azelastine, 2 spray, Each Nostril, BID calcium carbonate, 500 mg, oral, BID carbidopa-levodopa, 1 tablet, oral, Nightly clopidogrel, 75 mg, oral, Daily famotidine, 40 mg, oral, Daily [Held by provider] fludrocortisone, 0.1 mg, oral, Daily fluticasone, 2 spray, Each Nostril, Daily tiotropium, 2 puff, inhalation, Daily And fluticasone furoate-vilanteroL, 1 puff, inhalation, Daily furosemide, 20 mg, oral, Daily hydrALAZINE, 25 mg, oral, q8h lactated Ringer's, 500 mL, intravenous, Once levothyroxine, 112 mcg, oral, Daily metoprolol succinate XL, 100 mg, oral, Daily montelukast, 10 mg, oral, Nightly polyethylene glycol, 17 g, oral, Daily roflumilast, 500 mcg, oral, Daily traZODone, 150 mg, oral, Nightly Continuous medications PRN medications PRN medications: acetaminophen OR acetaminophen OR acetaminophen, HYDROmorphone, labetaloL,ondansetron ODT OR ondansetron, oxyCODONE, oxyCODONE, oxygen Problem List Problem list: Patient Active Problem List Diagnosis Dysphagia Dysphagia, unspecified type Assessment and Plan bart Lambert is a 83 y.o. 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 Acute Medical Issues #Uncontrolled hypertension/hypertensive urgency in the setting of worsening back pain with an intensity of 9 out of 10 -Blood pressure upon admission elevated at 217/86. -25 mg of hydralazine was given in the ED. Blood pressure went down to 144/97 -Will continue her home hydralazine 25 mg every 8 hours -Goal lower mean arterial or systolic blood pressure by no more than 10 to 20% of the first hour -Lower with additional 5 to 10% over the next 23 hours as needed for no more than 25% in the first 24 hours -Will consider labetalol 20 to 80 mg IV bolus every 10 minutes/4 hours as needed SBP over 100 -May give hydralazine 10 mg every 4 hours if systolic blood pressure above 165 diastolic blood pressure above 100 with consideration for rebound hypertension -If blood pressure is not controlled we will have to transfer the patient to the ICU for a nicardipine drip at 5 mg/h -Was given Vascutek injection 1.25 mg IV push 1 dose overnight for blood pressure of 214/78 -Continue home furosemide 20 mg daily IV #Worsening low back pain -Chronic in nature but worse today likely driving her blood pressure. 9 out of 10 intensity -Pain meds in place: - Tylenol 650 mg Q4Hr prn for mild pain - Oxycodone 5mg moderate pain - Oxycodone 10 mg severe pain - Dilaudid for breakthrough pain #Dysphagia/PEG dependent #Nausea/vomiting, likely related to dysphagia -Will add Compazine to Zofran 4 mg IV every 6 hours as needed -Bariatric surgery on board -Patient PEG dependent. Nutrition consulted on board -Modified barium swallow demonstrated esophageal dysphagia. -Scheduled for EGD on -Will start tube feeds today. Chronic Medical Issues #A-fib/aortic stent/CAD: Continue metoprolol succinate XL 100 mg every 24, Eliquis 2.5 mg twice daily, continue Plavix 75 mg daily (prevention status post percutaneous coronary intervention) #Hypothyroidism: Continue levothyroxine 112 mcg daily #COPD/asthma: Continue Trelegy Ellipta 100-60 2.5-25 mcg, Singulair 10 mg once daily #Parkinson's: Continue Sinemet #Dizziness/lightheadedness: Will hold home Florinef IVF: PRN Electrolytes: Replete as needed Diet: N.p.o. GI ppx: PPI DVT ppx: Eliquis/SCD Antibiotics: None Lines: 1 PIV Code: Full Code Code Status: Full Code Emergency Contact: Extended Emergency Contact Information Primary Emergency Contact: Adam Lambert Relation: Spouse Disposition: 83 y.o.female admitted for esophageal dysmotility/dysphagia, uncontrolled hypertension, weakness. Bariatric surgery on board. Started tube feeds today Savanna Avilez MD 03/28/2024 Internal Medicine PGY-3 Associated attestation - Donnie Thorpe DO - 03/30/2024 5:30 PM EDT I saw and evaluated the patient. I personally obtained the carvalho and critical portions of the historyand physical exam or was physically present for carvalho and critical portions performed by the resident/fellow. I reviewed the resident/fellow's documentation and discussed the patient with the resident/f get. I agree with the resident/fellow's medical decision making as documented in the note. 83 yo F with a hx of achalasia s/p multiple dilations, aortic dissection s/p stent, who is admittedat the request of her bariatric surgeon. She underwent MBS yesterday but had to be aborted as she was not passing the contrast through her esophagus. Plan is to take her for EGD on . Donnie Thorpe DO * Ania London RN - 03/29/2024 9:49 AM EDT 03/29/24 0946 Discharge Planning Living Arrangements Spouse/significant other Support Systems Spouse/significant other Assistance Needed patient reports independence in ADL's, uses a rollator, room air, does not drive-spouse does, PEG tube with TF (unknown supplier- reports she has all needed supplies) Type of Residence Private residence Number of Stairs to Enter Residence 0 Number of Stairs Within Residence 0 Do you have animals or pets at home? No Who is requesting discharge planning? Provider Home or Post Acute Services None Expected Discharge Disposition Home * MOLLY Ortega - 03/29/2024 8:59 AM EDT Speech-Language Pathology Inpatient Modified Barium Swallow Study Patient Name: Leyla Lambert : 1940 Today's Date: 03/29/24 Time Calculation Start Time: 829 Stop Time: 849 Time Calculation (min): 20 min Modified Barium Swallow Study completed. Informed verbal consent obtained prior to completion of exam. Trials of thin, nectar/mildly thick liquid, honey/moderately thick liquids were given. [employer]: MOLLY Ortega Contact info: [facility] chat Fluoroscopy time: 1:13 Reason for Referral: dysphagia Patient Hx: Achalasia with history of PEG for nutrition. Recent dilation of esophagus. Respiratory Status: Room air Current diet: pleasure feeds only, unable to tolerate same for 2 weeks Pain: Pain Scale: 0-10 Ratin FINAL SPEECH RECOMMENDATIONS DIET: NPO for nutrition, hydration and medication. Occasional pleasure feeds as tolerated. Plan: [employer] Plan: No treatment needs identified at this time Discussed POC: Patient Discussed Risks/Benefits: Yes Patient/Caregiver Agreeable: Yes Education Provided: Results and recommendations per MBSS, with video review; recommendations and POC at this time. Verbal understanding and agreement given on all accounts. Treatment Provided Today: no Additional consult suggested: GI for evaluation / treatment of esophagus as indicated Repeat study/ dc plan: n/a Mechanics of the Swallow Summary: ORAL PHASE: Lip Closure - Interlabial escape/no progression to anterior lip Tongue Control During Bolus Hold - Escape to lateral buccal cavity and/or floor of mouth Bolus prep/mastication - Mastication not assessed Bolus transport/lingual motion - Brisk tongue motion for A-P movement of the bolus Oral residue - Residue collection on oral structure PHARYNGEAL PHASE: Initiation of pharyngeal swallow - Bolus head at vallecular pit Soft palate elevation - No bolus between soft palate/pharyngeal wall Laryngeal elevation - Complete superior movement of thyroid cartilage with contact of arytenoids toepiglottic petiole Anterior hyoid excursion - Partial anterior movement Epiglottic movement - Complete inversion Laryngeal vestibule closure - Complete - no air/contrast in laryngeal vestibule Pharyngeal stripping wave - Present, however, diminished Pharyngeal contraction (A/P view) - Not tested Pharyngoesophageal segment opening - Partial distension/partial duration with partial obstruction of flow of bolus Tongue base retraction - Trace column of contrast or air between tongue base and pharyngeal wall Pharyngeal residue - Trace residue within or on the pharyngeal structures ESOPHAGEAL PHASE: Esophageal clearance - Minimal to no esophageal clearance [employer] Impressions with Severity Rating: Pt presents with no significant oropharyngeal dysphagia upon completion of modified barium swallow study this date. Swallowing physiology is detailed above. Severe esophageal dysphagia apparent. OUTCOME MEASURES: Functional Oral Intake Scale Functional Oral Intake Scale: Level 2 tube dependent with minimal attempts of food and liquid Rosenbek's Penetration Aspiration Scale Thin Liquids: 2. PENETRATION that CLEARS - contrast enter airway, above vocal cords, no residue [place] Thick Liquids: 2. PENETRATION that CLEARS - contrast enter airway, above vocal cords, no residue Honey Thick Liquids: 1. NO ASPIRATION & NO PENETRATION - no aspiration, contrast does not enterairway documented in this [facility] Work Phone: [phone]) 740-364708-16-2024 Plan of care note* Care Plan - Robbie Moore RN - 04/01/2024 10:58 AM EDT The patient's goals for the shift include patient will maintain adequate nutritional status. The clinical goals for the shift include patient will have pain controlled this shift [facility]08-16-2024 Miscellaneous Notes* Care Plan - Robbie Moore RN - 04/01/2024 10:58 AM EDT The patient's goals for the shift include patient will maintain adequate nutritional status. The clinical goals for the shift include patient will have pain controlled this shift * Care Plan - Cecelia Cid RN - 03/31/2024 10:13 AM EDT The patient's goals for the shift include patient will use call light for assistance this shift The clinical goals for the shift include patient will have pain controlled this shift * Care Plan - Corrina Avitia LPN - 03/30/2024 8:12 PM EDT The patient's goals for the shift include pain control The clinical goals for the shift include patient will not fall this shift * Hospital Course - Savanna Avilez MD - 03/30/2024 1:24 PM EDT TRISH Lambert is a 83 y.o. 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 According to the patient she was able to take her morning medicines and has not skipped on any of her meds. The patient was sent byDr. Julio bariatric surgeon. According to medical records the patient has had multiple esophagealdilations in the past without much success and for this reason she Jeffs 3 hours to see her bariatric surgeon. An upper GI was done in [place] that showed marked dysmotility. She admits to having diarrhea with tube feeds. Pills get stuck in her throat with a sip of water. She has a sensation of choking every time she eats. Upon arrival to the ED her blood pressure registered at 207/87. Patient reports generalized weakness but denies nausea or vomiting. Blood work was notable for mild elevation in creatinine to 1.1, and slight anemia but denies any active bleeding or hematemesis. Chest x-ray was noted to have a stable aortic stent. EKG was nonischemic. The patient will be admitted for possible esophageal dilation and a modified barium swallow and blood pressure optimization. ED course The patient was sent to the floor for further management of optimization of her hypertension, esophageal dilation/EGD. Hospital course During this hospitalization the patient complained of hip pain with an intensity of 9 out of 10 requiring both oxycodone and hydromorphone well-controlled. Per her blood pressure we restarted her home medications with good results. Modified barium swallow was completed. Modified barium swallow demonstrated clear transit of contrast material evident with delayed transit distally with retention of c ontrast material at the upper sphincter no signs of aspiration. EGD and esophageal dilation scheduled for 03/31/2024 by surgery. Discharge Please take your medications as instructed at time of hospital discharge. Instructions at Discharge: -please take -please follow-up with -please follow-up the below instructions on Please follow-up with your primary care provider within 5-7 days from time of discharge. If you experience any worsening symptoms or any new acute concerns arise, please contact your primary care provider to discuss and possibly arrange an appointment. If you cannot get in touch with provider or severe symptoms are present, please return to nearest emergency room/urgent care for evaluation and treatment. * Care Plan - Kelly Taveras RN - 03/30/2024 7:41 AM EDT The patient's goals for the shift include pain control The clinical goals for the shift include patient will not fall this shift * Care Plan - Kelly Taveras RN - 03/29/2024 8:03 AM EDT The patient's goals for the shift include pain control The clinical goals for the shift include patient will go to barium swallow today * Care Plan - Evelin Alexander RN - 03/28/2024 6:43 PM EDT The patient's goals for the shift include pain control The clinical goals for the shift include pain control documented in this [facility] Work Phone: [phone]) 209-247208-15-2024 Nurse Note* Caryn Salmon RN - 03/31/2024 8:05 PM EDT 1929: assumed pt care 2104: pt refused to get vital 1.5 tube feed, states it would keep her up all night, states she usually takes it in the morning & is willing to start in the morning tomorrow, let resident Dr. Oliva and division controller know, was told pt may start it in the morning 2110: pt is on trazadone 150 mg PO but got an error message stating this med can prolong the QT interval with propofol, asking resident DR. Oliva [facility]08-15-2024 Consult note* Kelly Martini RRT - 03/31/2024 12:15 PM EDTAssociated Order(s): IP CONSULT TO RESPIRATORY CARE Reason For Consult : Cpap/bipap Evaluated if patient has home cpap or bipap. Pt reports had a cpap a very long time ago but no longer needs it per her family doctor. Pt also reported does not have a cpap machine at home. Pt remainson room air SpO2 94%. No interventions needed at this time. Kelly Martini RRT [facility]08-15-2024 Consult note* Kelly Martini RRT - 03/31/2024 12:15 PM EDTAssociated Order(s): IP CONSULT TO RESPIRATORY CARE Reason For Consult : Cpap/bipap Evaluated if patient has home cpap or bipap. Pt reports had a cpap a very long time ago but no longer needs it per her family doctor. Pt also reported does not have a cpap machine at home. Pt remainson room air SpO2 94%. No interventions needed at this time. Kelly Martini RRT * Rock Alanis MD - 03/31/2024 7:36 AM EDT Reason For Consult Dysphagia, poor enteral feeding tolerance History Of Present Illness Leyla Lambert is a 83 y.o. female presenting with dysphagia and poor enteric intake. Seen in the bariatric office earlier today. Feeding tube placed 01/16/24 @ [facility] [place] Dr. Guerrier d/t not being able to swallow at all & weight loss (supposed to do tube feedings 5 times daily but doesn't because sometimes can eat estimates PO intake 50% of time); takes pills by mouth. Hx of Aortic Dissection in November- outside notes attached below. Had robotic myotomy and toupet in may 2023 and notes minimal improvement in dysphagia. Had a dilation with stricture at 38 cm in 09/09 and then in November noted to have a thoracid aortic dissection with TVAR. Then got a g tube (PEG) placed in January. Now comes in with dysphagia. Food sticking in chest. Uses feeding tube once/day and trying to use 5 times but leading to diarrhea. Not sure of her formula. Tolerates watermelon and pizza. 50% of intake this summer was by mouth. G tube site clean. Had an upper gi in [place] in September and no HH. Marked dysmotilty. She has had throat stretched 3 times with no relief. She has lost a lot of weight. Gets too much diarrhea with the tube feeds. Took a sip of water and stuck in her throat right now. Water is one of worst things to get down. Gets stuck in upper throat. Sometimes can eat some things like corn and pizza. Yesterday did a buffet and nothing went down. Then tried again. Feels like she is choking. Watermelon is ok. Feels dizzy in the office. Has been getting tube feeds in preparation for EGD with possible dilation today. AC/AP held x 48 hours. 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 Surgical History She has a past surgical history that includes Mastectomy (Bilateral, 06/20/2020); Hysterectomy (06/20/2020); Coronary stent placement (03/10/2008); Total knee arthroplasty (03/20/2021); Colectomy partial / total (03/20/2021); Esophagogastroduodenoscopy (03/20/2021); Colonoscopy (03/20/2021); Cardiac pacemaker placement (03/02/2017); Esophagogastroduodenoscopy w/ PEG (01/16/2024); Thoracic aorta stent (11/28/2023); Laparoscopy esophagogastric fundoplasty hybrid (11/24/2022); Lymph node biopsy (03/03/2023); and Esophagoscopy / EGD (03/30/2024). Social History She reports that she has never smoked. She has never used smokeless tobacco. No history on file foralcohol use and drug use. Family History No family history on file. Allergies Holiday, Droxidopa, Latex, Nickel, Acetaminophen-codeine, Codeine, Levonorgestrel-ethinyl estrad, Other, Gold au 198, Gold keratinate, and Gold sodium thiomalate (bulk) Review of Systems Review of Systems Constitutional: Negative for fever and malaise/fatigue. HENT: Negative for congestion. Eyes: Negative. Cardiovascular: Negative for chest pain. Respiratory: Negative for shortness of breath. Endocrine: Negative. Skin: Negative. Musculoskeletal: Negative for joint pain. Gastrointestinal: Negative for abdominal pain and diarrhea. Genitourinary: Negative. Neurological: Negative. Psychiatric/Behavioral: Negative. Allergic/Immunologic: Negative. Physical Exam Physical Exam: Constitutional: thin, wake/alert/oriented x3, in pain, alert and cooperative Eyes: PERRL, EOMI, clear sclera Head/Neck: Neck supple, no apparent injury, No JVD, trachea midline Respiratory/Thorax: good chest expansion, thorax symmetric Cardiovascular: Regular, rate and rhythm, 2+ equal pulses of the extremities Gastrointestinal: Nondistended, soft, feeding tube in place Musculoskeletal: ROM intact, no joint swelling, normal strength, L hip tenderness Extremities: normal extremities, no cyanosis edema, contusions or wounds, no clubbing Neurological: alert and oriented x3, intact senses, Psychological: Appropriate mood and behavior Skin: Warm and dry, no lesions, no rashes Last Recorded Vitals Blood pressure 105/67, pulse 74, temperature 37.2 C (99 F), resp. rate 16, height 1.6 m (5' 3 ), weight 46.6 kg (102 lb 11.8 oz), SpO2 97%. Assessment/Plan 83-year-old female with with history of achalasia status post robotic Heller myotomy and Toupet fundoplication in 05/2023, s/p EGD with dilation in 08/2023, s/p endovascular intervention for aortic dissection and placement of PEG in 01/2024 with persistent dysphagia and poor PO/feeding tube tolerance. Also found to be dizzy in the office and hypertensive in the ED. Plan is as follows after admission to hospitalist service. Will proceed with EGD with possible dilation today Discharge planning, anticipate discharge by 04/01/2024 after endoscopic interventions tomorrow please ensure tube feeds are held and patient is n.p.o. at midnight, with ongoing maintenance IV fluids at that time Rock Alanis MD * Marilyn Alexandra, RD - 03/29/2024 12:01 PM EDTAssociated Order(s): IP CONSULT TO NUTRITION SERVICES Patient has Malnutrition Diagnosis: Yes Diagnosis Status: New Malnutrition Diagnosis: Severe malnutrition related to acute disease or injury As Evidenced by: loss of muscle and adipose stores per NFPE; consuming less than 50% of estimated energy requirements >/= 5 days Additional Assessment Information: Plan to resume PEG tube feeds; EGD 03/31/24 Nutrition Assessment Reason for Assessment: Admission nursing screening (tube feed) Patient is a 83 y.o. female presenting with: Dysphagia, Past Medical History: Diagnosis Date Coagulation defect, unspecified (Multi) Blood clotting disorder Other disorders of lung Lung trouble Personal history of malignant neoplasm, unspecified History of malignant neoplasm Personal history of other diseases of the circulatory system History of hypertension Personal history of other diseases of the circulatory system History of coronary artery disease Personal history of other diseases of the musculoskeletal system and connective tissue History of arthritis Personal history of other diseases of the nervous system and sense organs 06/20/2020 History of cataract Personal history of other diseases of the respiratory system History of asthma Personal history of other diseases of the respiratory system History of bronchitis Personal history of other diseases of the respiratory system History of chronic obstructive lung disease Personal history of other diseases of urinary system History of bladder problems Personal history of other specified conditions History of chest pain Presence of cardiac pacemaker History of cardiac pacemaker Past Surgical History: Procedure Laterality Date OTHER SURGICAL HISTORY 06/20/2020 Mastectomy bilateral OTHER SURGICAL HISTORY 06/20/2020 Hysterectomy OTHER SURGICAL HISTORY 06/20/2020 Heart surgery OTHER SURGICAL HISTORY 03/20/2021 Knee replacement OTHER SURGICAL HISTORY 03/20/2021 Laparoscopic partial colectomy OTHER SURGICAL HISTORY 03/20/2021 Esophagogastroduodenoscopy OTHER SURGICAL HISTORY 03/20/2021 Colonoscopy Nutrition History: Food and Nutrient History: Pt with poor oral intakes; has PEG tube but only taking 1 can of TF daily (recommended pt to have 5 per EMR review). pt reports diarrhea after having tube feed; over last couple of nights, pt has had vomiting 2-3 times when trying to sleep. Pt was trying to eat regular foods such as corn on the cob, pizza but a ttimes she could not swalow water. Noted [employer] recs for pleasure feeds; plan for EGD on 03/31/24. Plan to trial oral diet and try alternative tube feeds with fiber. Will gradually increase TF to goal since pt has only been taking 1 can/day with minimal oral intakes over last few days. Per RDN note from 01/2024, TF recs: 237 ml Osmolite 1.2 5 x/day, 45 ml water flush before/after each feed = 1422 kcal, 66 g protein, 972 ml free water in 1185 ml total volume ofTF. 1422 ml total free water/24 hours with flushes. Energy Intake: Poor < 50 % Allergies Allergen Reactions Holiday Itching, Other, Unknown and Rash Other reaction(s): Welts welts Droxidopa Shortness of breath Latex Itching, Other and Rash Patient states allergic to Latex Patient states allergic to Latex Other reaction(s): Welts Patient states allergic to Latex Nickel Hives, Itching, Other and Rash Other reaction(s): Welts Acetaminophen-Codeine Unknown, GI intolerance, GI Upset, Nausea Only and Other Other reaction(s): Abdominal Pain Codeine GI intolerance, Unknown, Nausea Only and Other Other reaction(s): nausea, severe Acetaminophen-codeine Other reaction(s): nausea, severe Acetaminophen-codeine Other reaction(s): nausea, severe Other reaction(s): Abdominal Pain Levonorgestrel-Ethinyl Estrad Cough, Itching and Runny nose Other Other Annotation - [id number]: Nickel, Holiday, Gold Compounding Gold Au 198 Unknown, Itching, Other and Rash Other reaction(s): Welts itching Gold Keratinate Unknown, Itching, Other and Rash itching Holiday Nickel welts Other reaction(s): Welts Other reaction(s): Intolerance itching Gold Sodium Thiomalate (Bulk) Itching, Other and Rash Other reaction(s): Welts GI Symptoms: Diarrhea and Vomiting Oral Problems: Swallowing difficulty Anthropometrics: Height: 160 cm (5' 3 ) Weight: 46.6 kg (102 lb 11.8 oz) BMI (Calculated): 18.2 IBW/kg (Dietitian Calculated): 52.3 kg Percent of IBW: 89 % Weight History: Daily Weight 03/28/24 : 46.6 kg (102 lb 11.8 oz) 03/28/24 : 47.2 kg (104 lb) 07/03/21 : 44.1 kg (97 lb 4.8 oz) 05/15/21 : 57.6 kg (127 lb) 03/20/21 : 57.5 kg (126 lb 11.2 oz) 03/05/21 : 58.2 kg (128 lb 4.8 oz) 02/13/21 : 58.1 kg (128 lb) 01/02/21 : 58.2 kg (128 lb 6 oz) 07/05/20 : 59.6 kg (131 lb 6.3 oz) 06/20/20 : 59.4 kg (131 lb) Weight 03/28/2024 1145 03/28/2024 1835 Weight: 47.2 kg (104 lb) 46.6 kg (102 lb 11.8 oz) Weight Change %: Nutrition Focused Physical Exam Findings: Subcutaneous Fat Loss Orbital Fat Pads: Mild-Moderate (slight dark circles and slight hollowing) Buccal Fat Pads: Mild-Moderate (flat cheeks, minimal bounce) Muscle Wasting Temporalis: Severe (hollowed scooping depression) Pectoralis (Clavicular Region): Severe (protruding prominent clavicle) Quadriceps: Mild-Moderate (mild depression on inner and outer thigh) Gastrocnemius: Mild-Moderate (not well developed muscle) Edema Edema: none Physical Findings (Nutrition Deficiency/Toxicity) Skin: Negative (intact) Nutrition Significant Labs: Results from last 7 days Lab Units 03/29/24 0724 03/28/24 1403 GLUCOSE mg/dL 96 94 SODIUM mmol/L 141 141 POTASSIUM mmol/L 4.5 4.9 CHLORIDE mmol/L 104 103 CO2 mmol/L 28 29 BUN mg/dL 24* 25* CREATININE mg/dL 0.96 1.10* EGFR mL/min/1.73m*2 58* 50* CALCIUM mg/dL 7.8* 9.3 PHOSPHORUS mg/dL 4.6 -- MAGNESIUM mg/dL 2.17 2.59* Lab Results Component Value Date HGBA1C 5.6 06/10/2021 Results from last 7 days Lab Units 03/28/24 2309 POCT GLUCOSE mg/dL 99 Lab Results Component Value Date ALBUMIN 3.7 03/29/2024 No results found for: CRP Nutrition Specific Medications: Scheduled medications: apixaban, 2.5 mg, oral, BID azelastine, 2 spray, Each Nostril, BID calcium carbonate, 500 mg, oral, BID carbidopa-levodopa, 1 tablet, oral, Nightly clopidogrel, 75 mg, oral, Daily famotidine, 40 mg, oral, Daily [Held by provider] fludrocortisone, 0.1 mg, oral, Daily fluticasone, 2 spray, Each Nostril, Daily tiotropium, 2 puff, inhalation, Daily And fluticasone furoate-vilanteroL, 1 puff, inhalation, Daily furosemide, 20 mg, oral, Daily hydrALAZINE, 25 mg, oral, q8h lactated Ringer's, 500 mL, intravenous, Once levothyroxine, 112 mcg, oral, Daily metoprolol succinate XL, 100 mg, oral, Daily montelukast, 10 mg, oral, Nightly polyethylene glycol, 17 g, oral, Daily roflumilast, 500 mcg, oral, Daily traZODone, 150 mg, oral, Nightly Continuous medications: PRN medications: PRN medications: acetaminophen OR acetaminophen OR acetaminophen, HYDROmorphone, labetaloL,ondansetron ODT OR ondansetron, oxyCODONE, oxyCODONE, oxygen Nursing Data Per flowsheet: Gastrointestinal Gastrointestinal (WDL): Exceptions to WDL Abdomen Inspection: Other (Comment) (peg tube) Bowel Sounds: All quadrants Bowel Sounds (All Quadrants): Hypoactive Feeding assistance level: No intake or output data in the 24 hours ending 03/29/24 1201 0-10 (Numeric) Pain Score: 4 Dietary Orders (From admission, onward) Start Ordered 03/28/242257 NPO Diet; Effective now Diet effective now 03/28/242256 Estimated Needs: Total Energy Estimated Needs (kCal): (~1400 kcal (30 kcal/kg)) Total Protein Estimated Needs (g): (55-70 g protein (1.2-1.5 g/kg)) Total Fluid Estimated Needs (mL): (1 ml/kcal or per MD) Nutrition Diagnosis Malnutrition Diagnosis Patient has Malnutrition Diagnosis: Yes Diagnosis Status: New Malnutrition Diagnosis: Severe malnutrition related to acute disease or injury As Evidenced by: loss of muscle and adipose stores per NFPE; consuming less than 50% of estimated energy requirements >/= 5 days Additional Assessment Information: Plan to resume PEG tube feeds; EGD 03/31/24 Nutrition Interventions/Recommendations Nutrition Prescription: diet, EN, fluids Nutrition Interventions: Interventions: Enteral intake Goal: 1 can Vital 1.5 bolus via PEG tube 4 x/day with 1440 kcal, 64 g protein, 730 ml free water in948 ml volume of TF; additional 120 ml FWF every 4 hours or 6 x/day= 1450 ml total free water/24 hours Coordination of Care: OMAR Mendoza Nutrition Education: N/A Recommendations: Regular diet, pleasure feeds per [employer] recs TF recs: 1 can (250 ml) Vital 1.5 bolus via PEG tube 4 x/day- gradually increase to goal rate sincept was only taking 1 can/day of TF at home. Suggest: 03/29/24: 2 cans daily via PEG tube 03/30/24: 3 cans daily via PEG tube 03/31/24: 4 cans daily via PEG tube 3. Water: 120 ml 6 x/day via PEG 4. Weights: 2-3 x/week 5. 100 mg Thiamine daily x 10 days 6. Daily RFP, Mg daily; replete lytes prn Nutrition Monitoring and Evaluation Food/Nutrient Related History Monitoring Monitoring and Evaluation Plan: Enteral and parenteral nutrition intake Criteria: Pt will tolerate TF of 1 can 4 x/day bolus via PEG tube over next 3-4 days Body Composition/Growth/Weight History Monitoring and Evaluation Plan: Weight Weight: Measured weight Criteria: Monitor weights as available Biochemical Data, Medical Tests and Procedures Monitoring and Evaluation Plan: Glucose/endocrine profile, Electrolyte/renal panel Criteria: Monitor labs as available Time Spent (min): 60 minutes * Rock Alanis MD - 03/28/2024 4:50 PM EDT Reason For Consult Dysphagia, poor enteral feeding tolerance History Of Present Illness Leyla Lambert is a 83 y.o. female presenting with dysphagia and poor enteric intake. Seen in the bariatric office earlier today. Feeding tube placed 01/16/24 @ [facility] Dr[facility] d/t not being able to swallow at all & weight loss (supposed to do tube feedings 5 times daily but doesn't because sometimes can eat estimates PO intake 50% of time); takes pills by mouth. Hx of Aortic Dissection in November- outside notes attached below. Had robotic myotomy and toupet in may 2023 and notes minimal improvement in dysphagia. Had a dilation with stricture at 38 cm in 09/09 and then in November noted to have a thoracid aortic dissection with TVAR. Then got a g tube (PEG) placed in January. Now comes in with dysphagia. Food sticking in chest. Uses feeding tube once/day and trying to use 5 times but leading to diarrhea. Not sure of her formula. Tolerates watermelon and pizza. 50% of intake this summer was by mouth. G tube site clean. Had an upper gi in [place] in September and no HH. Marked dysmotilty. She has had throat stretched 3 times with no relief. She has lost a lot of weight. Gets too much diarrhea with the tube feeds. Took a sip of water and stuck in her throat right now. Water is one of worst things to get down. Gets stuck in upper throat. Sometimes can eat some things like corn and pizza. Yesterday did a buffet and nothing went down. Then tried again. Feels like she is choking. Watermelon is ok. Feels dizzy in the office.. Did not eat this morning. Past Medical History She has a past medical history of Coagulation defect, unspecified (Multi), Other disorders of lung,Personal history of malignant neoplasm, unspecified, Personal history of other diseases of the circulatory system, Personal history of other diseases of the circulatory system, Personal history of other diseases of the musculoskeletal system and connective tissue, Personal history of other diseases of the nervous system and sense organs (06/20/2020), Personal history of other diseases of the respiratory system, Personal history of other diseases of the respiratory system, Personal history of other diseases of the respiratory system, Personal history of other diseases of urinary system, Personal history of other specified conditions, and Presence of cardiac pacemaker. Surgical History She has a past surgical history that includes Other surgical history (06/20/2020); Other surgical history (06/20/2020); Other surgical history (06/20/2020); Other surgical history (03/20/2021); Othersurgical history (03/20/2021); Other surgical history (03/20/2021); and Other surgical history (03/20/2021). Social History She has no history on file for tobacco use, alcohol use, and drug use. Family History No family history on file. Allergies Holiday, Droxidopa, Latex, Nickel, Acetaminophen-codeine, Codeine, Levonorgestrel-ethinyl estrad, Other, Gold au 198, Gold keratinate, and Gold sodium thiomalate (bulk) Review of Systems Review of Systems Constitutional: Negative for fever and malaise/fatigue. HENT: Negative for congestion. Eyes: Negative. Cardiovascular: Negative for chest pain. Respiratory: Negative for shortness of breath. Endocrine: Negative. Skin: Negative. Musculoskeletal: Positive for joint pain. Gastrointestinal: Positive for diarrhea. Negative for abdominal pain. Genitourinary: Negative. Neurological: Negative. Psychiatric/Behavioral: Negative. Allergic/Immunologic: Negative. Physical Exam Physical Exam: Constitutional: thin, wake/alert/oriented x3, in pain, alert and cooperative Eyes: PERRL, EOMI, clear sclera Head/Neck: Neck supple, no apparent injury, No JVD, trachea midline Respiratory/Thorax: good chest expansion, thorax symmetric Cardiovascular: Regular, rate and rhythm, 2+ equal pulses of the extremities Gastrointestinal: Nondistended, soft, feeding tube in place Musculoskeletal: ROM intact, no joint swelling, normal strength, L hip tenderness Extremities: normal extremities, no cyanosis edema, contusions or wounds, no clubbing Neurological: alert and oriented x3, intact senses, Psychological: Appropriate mood and behavior Skin: Warm and dry, no lesions, no rashes Last Recorded Vitals Blood pressure (!) 207/87, pulse 65, temperature 37.4 C (99.3 F), temperature source Temporal, resp. rate (!) 24, height 1.6 m (5' 3 ), weight 47.2 kg (104 lb), SpO2 100%. Assessment/Plan 83-year-old female with with history of achalasia status post robotic Heller myotomy and Toupet fundoplication in 05/2023, s/p EGD with dilation in 08/2023, s/p endovascular intervention for aortic dissection and placement of PEG in 01/2024 with persistent dysphagia and poor PO/feeding tube tolerance. Also found to be dizzy in the office and hypertensive in the ED. Plan is as follows after admission to hospitalist service. Get nutrition 4-5 times/day. Try metamucil for the diarrhea. Just take twice/day. See if helps. Try putting chin to chest when drinking. I would like to put down a camera, possible botox and dilation. You will need to stop blood thinners for this. Will add on for 03/31 Try some saltine crackers when you get the foam. Stay upright after meals. We will get a modified barium swallow. Get the esophagram pushed over in pacs from ailyn I spent 90 minutes in the professional and overall care of this patient. Rock Alanis MD documented [facility] Work Phone: [phone] Plan of care note* Care Plan - Cecelia Cid RN - 03/31/2024 10:13 AM EDT The patient's goals for the shift include patient will use call light for assistance this shift The clinical goals for the shift include patient will have pain controlled this shift [facility]08[facility] Consult note* Rock Alanis MD - 03/31/2024 7:36 AM EDT Reason For Consult Dysphagia, poor enteral feeding tolerance History Of Present Illness Leyla Lambert is a 83 y.o. female presenting with dysphagia and poor enteric intake. Seen in the bariatric office earlier today. Feeding tube placed 01/16/24 @ [place], [place] Dr. Guerrier d/t not being able to swallow at all & weight loss (supposed to do tube feedings 5 times daily but doesn't because sometimes can eat estimates PO intake 50% of time); takes pills by mouth. Hx of Aortic Dissection in November- outside notes attached below. Had robotic myotomy and toupet in may 2023 and notes minimal improvement in dysphagia. Had a dilation with stricture at 38 cm in 09/09 and then in November noted to have a thoracid aortic dissection with TVAR. Then got a g tube (PEG) placed in January. Now comes in with dysphagia. Food sticking in chest. Uses feeding tube once/day and trying to use 5 times but leading to diarrhea. Not sure of her formula. Tolerates watermelon and pizza. 50% of intake this summer was by mouth. G tube site clean. Had an upper gi in [place] in September and no HH. Marked dysmotilty. She has had throat stretched 3 times with no relief. She has lost a lot of weight. Gets too much diarrhea with the tube feeds. Took a sip of water and stuck in her throat right now. Water is one of worst things to get down. Gets stuck in upper throat. Sometimes can eat some things like corn and pizza. Yesterday did a buffet and nothing went down. Then tried again. Feels like she is choking. Watermelon is ok. Feels dizzy in the office. Has been getting tube feeds in preparation for EGD with possible dilation today. AC/AP held x 48 hours. 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 Surgical History She has a past surgical history that includes Mastectomy (Bilateral, 06/20/2020); Hysterectomy (06/20/2020); Coronary stent placement (03/10/2008); Total knee arthroplasty (03/20/2021); Colectomy partial / total (03/20/2021); Esophagogastroduodenoscopy (03/20/2021); Colonoscopy (03/20/2021); Cardiac pacemaker placement (03/02/2017); Esophagogastroduodenoscopy w/ PEG (01/16/2024); Thoracic aorta stent (11/28/2023); Laparoscopy esophagogastric fundoplasty hybrid (11/24/2022); Lymph node biopsy (03/03/2023); and Esophagoscopy / EGD (03/30/2024). Social History She reports that she has never smoked. She has never used smokeless tobacco. No history on file foralcohol use and drug use. Family History No family history on file. Allergies Holiday, Droxidopa, Latex, Nickel, Acetaminophen-codeine, Codeine, Levonorgestrel-ethinyl estrad, Other, Gold au 198, Gold keratinate, and Gold sodium thiomalate (bulk) Review of Systems Review of Systems Constitutional: Negative for fever and malaise/fatigue. HENT: Negative for congestion. Eyes: Negative. Cardiovascular: Negative for chest pain. Respiratory: Negative for shortness of breath. Endocrine: Negative. Skin: Negative. Musculoskeletal: Negative for joint pain. Gastrointestinal: Negative for abdominal pain and diarrhea. Genitourinary: Negative. Neurological: Negative. Psychiatric/Behavioral: Negative. Allergic/Immunologic: Negative. Physical Exam Physical Exam: Constitutional: thin, wake/alert/oriented x3, in pain, alert and cooperative Eyes: PERRL, EOMI, clear sclera Head/Neck: Neck supple, no apparent injury, No JVD, trachea midline Respiratory/Thorax: good chest expansion, thorax symmetric Cardiovascular: Regular, rate and rhythm, 2+ equal pulses of the extremities Gastrointestinal: Nondistended, soft, feeding tube in place Musculoskeletal: ROM intact, no joint swelling, normal strength, L hip tenderness Extremities: normal extremities, no cyanosis edema, contusions or wounds, no clubbing Neurological: alert and oriented x3, intact senses, Psychological: Appropriate mood and behavior Skin: Warm and dry, no lesions, no rashes Last Recorded Vitals Blood pressure 105/67, pulse 74, temperature 37.2 C (99 F), resp. rate 16, height 1.6 m (5' 3 ), weight 46.6 kg (102 lb 11.8 oz), SpO2 97%. Assessment/Plan 83-year-old female with with history of achalasia status post robotic Heller myotomy and Toupet fundoplication in 05/2023, s/p EGD with dilation in 08/2023, s/p endovascular intervention for aortic dissection and placement of PEG in 01/2024 with persistent dysphagia and poor PO/feeding tube tolerance. Also found to be dizzy in the office and hypertensive in the ED. Plan is as follows after admission to hospitalist service. Will proceed with EGD with possible dilation today Discharge planning, anticipate discharge by 04/01/2024 after endoscopic interventions tomorrow please ensure tube feeds are held and patient is n.p.o. at midnight, with ongoing maintenance IV fluids at that time Rock Alanis MD [facility] Work Phone: [phone]) 387-461608-14-2024 Plan of care note* Care Plan - Corrina Avitia LPN - 03/30/2024 8:12 PM EDT The patient's goals for the shift include pain control The clinical goals for the shift include patient will not fall this shift [facility]08-14-2024 Nurse Note* Kelly Taveras RN - 03/30/2024 5:59 PM EDT 1800 patient refusing feeds via peg tube. Patient and spouse educated again about the importance ofreceiving nutrition; patient continues to state that my stool is going to come out like liquid. Iexplained again that without eating solid food, and the peg tube feedings being liquid, that she will only be having liquid bowel movements. Team notified. [facility]08-14-2024 Hospital Note* Hospital Course - Savanna Avilez MD - 03/30/2024 1:24 PM EDT TRISH Lambert is a 83 y.o. 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 According to the patient she was able to take her morning medicines and has not skipped on any of her meds. The patient was sent byDr. Julio bariatric surgeon. According to medical records the patient has had multiple esophagealdilations in the past without much success and for this reason she Jeffs 3 hours to see her bariatric surgeon. An upper GI was done in [place] that showed marked dysmotility. She admits to having diarrhea with tube feeds. Pills get stuck in her throat with a sip of water. She has a sensation of choking every time she eats. Upon arrival to the ED her blood pressure registered at 207/87. Patient reports generalized weakness but denies nausea or vomiting. Blood work was notable for mild elevation in creatinine to 1.1, and slight anemia but denies any active bleeding or hematemesis. Chest x-ray was noted to have a stable aortic stent. EKG was nonischemic. The patient will be admitted for possible esophageal dilation and a modified barium swallow and blood pressure optimization. ED course The patient was sent to the floor for further management of optimization of her hypertension, esophageal dilation/EGD. Hospital course During this hospitalization the patient complained of hip pain with an intensity of 9 out of 10 requiring both oxycodone and hydromorphone well-controlled. Per her blood pressure we restarted her home medications with good results. Modified barium swallow was completed. Modified barium swallow demonstrated clear transit of contrast material evident with delayed transit distally with retention of c ontrast material at the upper sphincter no signs of aspiration. EGD and esophageal dilation scheduled for 03/31/2024 by surgery. Discharge Please take your medications as instructed at time of hospital discharge. Instructions at Discharge: -please take -please follow-up with -please follow-up the below instructions on Please follow-up with your primary care provider within 5-7 days from time of discharge. If you experience any worsening symptoms or any new acute concerns arise, please contact your primary care provider to discuss and possibly arrange an appointment. If you cannot get in touch with provider or severe symptoms are present, please return to nearest emergency room/urgent care for evaluation and treatment. [facility] Work Phone: [phone]) 915-385008-14-2024 Nurse Note* Kelly Taveras RN - 03/30/2024 9:37 AM EDT 0937 drs and nutrition notified that patient is refusing morning feeds. Educated patient that she is going to have loose/liquid stools if she is only being fed liquid/feeds via the kangaroo pump. Patient insists that she doesn't want food right now. 0941 running feeds now. Patient has been educated to call if she experiences nausea or vomiting. [facility] Work Phone: 1(117) 220-142608-14-2024 Plan of care note* Care Plan - Kelly Taveras RN - 03/30/2024 7:41 AM EDT The patient's goals for the shift include pain control The clinical goals for the shift include patient will not fall this shift [facility] Work Phone: [phone]) 472-925508-13-2024 Consult note* Marilyn Alexandra RD - 03/29/2024 12:01 PM EDTAssociated Order(s): IP CONSULT TO NUTRITION SERVICES Patient has Malnutrition Diagnosis: Yes Diagnosis Status: New Malnutrition Diagnosis: Severe malnutrition related to acute disease or injury As Evidenced by: loss of muscle and adipose stores per NFPE; consuming less than 50% of estimated energy requirements >/= 5 days Additional Assessment Information: Plan to resume PEG tube feeds; EGD 03/31/24 Nutrition Assessment Reason for Assessment: Admission nursing screening (tube feed) Patient is a 83 y.o. female presenting with: Dysphagia, Past Medical History: Diagnosis Date Coagulation defect, unspecified (Multi) Blood clotting disorder Other disorders of lung Lung trouble Personal history of malignant neoplasm, unspecified History of malignant neoplasm Personal history of other diseases of the circulatory system History of hypertension Personal history of other diseases of the circulatory system History of coronary artery disease Personal history of other diseases of the musculoskeletal system and connective tissue History of arthritis Personal history of other diseases of the nervous system and sense organs 06/20/2020 History of cataract Personal history of other diseases of the respiratory system History of asthma Personal history of other diseases of the respiratory system History of bronchitis Personal history of other diseases of the respiratory system History of chronic obstructive lung disease Personal history of other diseases of urinary system History of bladder problems Personal history of other specified conditions History of chest pain Presence of cardiac pacemaker History of cardiac pacemaker Past Surgical History: Procedure Laterality Date OTHER SURGICAL HISTORY 06/20/2020 Mastectomy bilateral OTHER SURGICAL HISTORY 06/20/2020 Hysterectomy OTHER SURGICAL HISTORY 06/20/2020 Heart surgery OTHER SURGICAL HISTORY 03/20/2021 Knee replacement OTHER SURGICAL HISTORY 03/20/2021 Laparoscopic partial colectomy OTHER SURGICAL HISTORY 03/20/2021 Esophagogastroduodenoscopy OTHER SURGICAL HISTORY 03/20/2021 Colonoscopy Nutrition History: Food and Nutrient History: Pt with poor oral intakes; has PEG tube but only taking 1 can of TF daily (recommended pt to have 5 per EMR review). pt reports diarrhea after having tube feed; over last couple of nights, pt has had vomiting 2-3 times when trying to sleep. Pt was trying to eat regular foods such as corn on the cob, pizza but a ttimes she could not swalow water. Noted [employer] recs for pleasure feeds; plan for EGD on 03/31/24. Plan to trial oral diet and try alternative tube feeds with fiber. Will gradually increase TF to goal since pt has only been taking 1 can/day with minimal oral intakes over last few days. Per RDN note from 01/2024, TF recs: 237 ml Osmolite 1.2 5 x/day, 45 ml water flush before/after each feed = 1422 kcal, 66 g protein, 972 ml free water in 1185 ml total volume ofTF. 1422 ml total free water/24 hours with flushes. Energy Intake: Poor < 50 % Allergies Allergen Reactions Holiday Itching, Other, Unknown and Rash Other reaction(s): Welts welts Droxidopa Shortness of breath Latex Itching, Other and Rash Patient states allergic to Latex Patient states allergic to Latex Other reaction(s): Welts Patient states allergic to Latex Nickel Hives, Itching, Other and Rash Other reaction(s): Welts Acetaminophen-Codeine Unknown, GI intolerance, GI Upset, Nausea Only and Other Other reaction(s): Abdominal Pain Codeine GI intolerance, Unknown, Nausea Only and Other Other reaction(s): nausea, severe Acetaminophen-codeine Other reaction(s): nausea, severe Acetaminophen-codeine Other reaction(s): nausea, severe Other reaction(s): Abdominal Pain Levonorgestrel-Ethinyl Estrad Cough, Itching and Runny nose Other Other Annotation - [id number]: Nickel, Holiday, Gold Compounding Gold Au 198 Unknown, Itching, Other and Rash Other reaction(s): Welts itching Gold Keratinate Unknown, Itching, Other and Rash itching Holiday Nickel welts Other reaction(s): Welts Other reaction(s): Intolerance itching Gold Sodium Thiomalate (Bulk) Itching, Other and Rash Other reaction(s): Welts GI Symptoms: Diarrhea and Vomiting Oral Problems: Swallowing difficulty Anthropometrics: Height: 160 cm (5' 3 ) Weight: 46.6 kg (102 lb 11.8 oz) BMI (Calculated): 18.2 IBW/kg (Dietitian Calculated): 52.3 kg Percent of IBW: 89 % Weight History: Daily Weight 03/28/24 : 46.6 kg (102 lb 11.8 oz) 03/28/24 : 47.2 kg (104 lb) 07/03/21 : 44.1 kg (97 lb 4.8 oz) 05/15/21 : 57.6 kg (127 lb) 03/20/21 : 57.5 kg (126 lb 11.2 oz) 03/05/21 : 58.2 kg (128 lb 4.8 oz) 02/13/21 : 58.1 kg (128 lb) 01/02/21 : 58.2 kg (128 lb 6 oz) 07/05/20 : 59.6 kg (131 lb 6.3 oz) 06/20/20 : 59.4 kg (131 lb) Weight 03/28/2024 1145 03/28/2024 1835 Weight: 47.2 kg (104 lb) 46.6 kg (102 lb 11.8 oz) Weight Change %: Nutrition Focused Physical Exam Findings: Subcutaneous Fat Loss Orbital Fat Pads: Mild-Moderate (slight dark circles and slight hollowing) Buccal Fat Pads: Mild-Moderate (flat cheeks, minimal bounce) Muscle Wasting Temporalis: Severe (hollowed scooping depression) Pectoralis (Clavicular Region): Severe (protruding prominent clavicle) Quadriceps: Mild-Moderate (mild depression on inner and outer thigh) Gastrocnemius: Mild-Moderate (not well developed muscle) Edema Edema: none Physical Findings (Nutrition Deficiency/Toxicity) Skin: Negative (intact) Nutrition Significant Labs: Results from last 7 days Lab Units 03/29/24 0724 03/28/24 1403 GLUCOSE mg/dL 96 94 SODIUM mmol/L 141 141 POTASSIUM mmol/L 4.5 4.9 CHLORIDE mmol/L 104 103 CO2 mmol/L 28 29 BUN mg/dL 24* 25* CREATININE mg/dL 0.96 1.10* EGFR mL/min/1.73m*2 58* 50* CALCIUM mg/dL 7.8* 9.3 PHOSPHORUS mg/dL 4.6 -- MAGNESIUM mg/dL 2.17 2.59* Lab Results Component Value Date HGBA1C 5.6 06/10/2021 Results from last 7 days Lab Units 03/28/24 2309 POCT GLUCOSE mg/dL 99 Lab Results Component Value Date ALBUMIN 3.7 03/29/2024 No results found for: CRP Nutrition Specific Medications: Scheduled medications: apixaban, 2.5 mg, oral, BID azelastine, 2 spray, Each Nostril, BID calcium carbonate, 500 mg, oral, BID carbidopa-levodopa, 1 tablet, oral, Nightly clopidogrel, 75 mg, oral, Daily famotidine, 40 mg, oral, Daily [Held by provider] fludrocortisone, 0.1 mg, oral, Daily fluticasone, 2 spray, Each Nostril, Daily tiotropium, 2 puff, inhalation, Daily And fluticasone furoate-vilanteroL, 1 puff, inhalation, Daily furosemide, 20 mg, oral, Daily hydrALAZINE, 25 mg, oral, q8h lactated Ringer's, 500 mL, intravenous, Once levothyroxine, 112 mcg, oral, Daily metoprolol succinate XL, 100 mg, oral, Daily montelukast, 10 mg, oral, Nightly polyethylene glycol, 17 g, oral, Daily roflumilast, 500 mcg, oral, Daily traZODone, 150 mg, oral, Nightly Continuous medications: PRN medications: PRN medications: acetaminophen OR acetaminophen OR acetaminophen, HYDROmorphone, labetaloL,ondansetron ODT OR ondansetron, oxyCODONE, oxyCODONE, oxygen Nursing Data Per flowsheet: Gastrointestinal Gastrointestinal (WDL): Exceptions to WDL Abdomen Inspection: Other (Comment) (peg tube) Bowel Sounds: All quadrants Bowel Sounds (All Quadrants): Hypoactive Feeding assistance level: No intake or output data in the 24 hours ending 03/29/24 1201 0-10 (Numeric) Pain Score: 4 Dietary Orders (From admission, onward) Start Ordered 03/28/242257 NPO Diet; Effective now Diet effective now 03/28/242256 Estimated Needs: Total Energy Estimated Needs (kCal): (~1400 kcal (30 kcal/kg)) Total Protein Estimated Needs (g): (55-70 g protein (1.2-1.5 g/kg)) Total Fluid Estimated Needs (mL): (1 ml/kcal or per MD) Nutrition Diagnosis Malnutrition Diagnosis Patient has Malnutrition Diagnosis: Yes Diagnosis Status: New Malnutrition Diagnosis: Severe malnutrition related to acute disease or injury As Evidenced by: loss of muscle and adipose stores per NFPE; consuming less than 50% of estimated energy requirements >/= 5 days Additional Assessment Information: Plan to resume PEG tube feeds; EGD 03/31/24 Nutrition Interventions/Recommendations Nutrition Prescription: diet, EN, fluids Nutrition Interventions: Interventions: Enteral intake Goal: 1 can Vital 1.5 bolus via PEG tube 4 x/day with 1440 kcal, 64 g protein, 730 ml free water in948 ml volume of TF; additional 120 ml FWF every 4 hours or 6 x/day= 1450 ml total free water/24 hours Coordination of Care: OMAR Mendoza Nutrition Education: N/A Recommendations: Regular diet, pleasure feeds per [employer] recs TF recs: 1 can (250 ml) Vital 1.5 bolus via PEG tube 4 x/day- gradually increase to goal rate sincept was only taking 1 can/day of TF at home. Suggest: 03/29/24: 2 cans daily via PEG tube 03/30/24: 3 cans daily via PEG tube 03/31/24: 4 cans daily via PEG tube 3. Water: 120 ml 6 x/day via PEG 4. Weights: 2-3 x/week 5. 100 mg Thiamine daily x 10 days 6. Daily RFP, Mg daily; replete lytes prn Nutrition Monitoring and Evaluation Food/Nutrient Related History Monitoring Monitoring and Evaluation Plan: Enteral and parenteral nutrition intake Criteria: Pt will tolerate TF of 1 can 4 x/day bolus via PEG tube over next 3-4 days Body Composition/Growth/Weight History Monitoring and Evaluation Plan: Weight Weight: Measured weight Criteria: Monitor weights as available Biochemical Data, Medical Tests and Procedures Monitoring and Evaluation Plan: Glucose/endocrine profile, Electrolyte/renal panel Criteria: Monitor labs as available Time Spent (min): 60 minutes [facility] Work Phone: 1(626) [phone] Nurse Note* Kelly Taveras RN - 03/29/2024 10:38 AM EDT 1042 Discussing with doctors what the plan is to feed this patient. Patient and verbalized having a plan to get EGD , barium swallow is finished as of this morning, hoping to have a diet order started/maintained until then. Messages in secure chat with team. [facility] Work Phone: [phone]) [phone] Plan of care note* Care Plan - Kelly Taveras RN - 03/29/2024 8:03 AM EDT The patient's goals for the shift include pain control The clinical goals for the shift include patient will go to barium swallow today [facility] Work Phone: [phone] 113-666508-12-2024 Plan of care note* Care Plan - Evelin Alexander RN - 03/28/2024 6:43 PM EDT The patient's goals for the shift include pain control The clinical goals for the shift include pain control [facility] Work Phone: 1([phone]) 202-522208-12-2024 History and physical note* Savanna Avilez MD - 03/28/2024 6:28 PM EDT Chief Complaint Chief Complaint Patient presents with Dizziness PT presents to the ER with dizziness that began this morning when she woke up. PT states that she has been feeling very weak and tired, Pts PCP wanted her to come get checked out. PT denies any chestpain or shortness of breath. PT has a hx of HTN and has been taking medications for this. 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 HPI HPI: Leyla Lambert is a 83 y.o. 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 According to the patient she was able to take her morning medicines and has not skipped on any of her meds. The patient was sent by Dr. Julio bariatric surgeon. According to medical records the patient has had multiple esophageal dilations in the past without much success and for this reason she Jeffs 3 hours to see her bariatric surgeon. An upper GI was done in [place] that showed marked dysmotility. She admits to having diarrhea with tube feeds. Pills get stuck in her throat with a sip of water. She has a sensation of choking every time she eats. Upon arrival to the ED her blood pressure registered at 207/87. Patient reports generalized weakness but denies nausea or vomiting. Blood work was notable for mild elevation in creatinine to 1.1, and slight anemia but denies any active bleeding or hematemesis. Chest x-ray was noted to have a stable aortic stent. EKG was nonischemic. The patient will be admitted for possible esophageal dilation and a modified barium swallow and blood pressure optimization. ED course: She was given her daily hydralazine and transferred to the floor for further management Vitals: Temperature 37.4, heart rate 70, respirations 18, blood pressure 207/87 now patient is at 144/97 with an SpO2 of 100% on room air Labs: -CBC: Hemoglobin 10.4, hematocrit 34.7, otherwise unremarkable -CMP: Creatinine 1.1 -Magnesium 2.59 -Troponin 1, high-sensitivity 13 and downtrending Imaging: -CXR: Chest x-ray was notable for cardiomegaly with a stent in the ascending or descending aorta. Irregular interstitial thickening bilaterally chronic. -EKG: No ST changes otherwise unremarkable Interventions: 25 mg hydralazine Antivert will provide management. ROS: 12 points review of system is negative except as stated in the HPI above. Past Medical History Past Medical History: Diagnosis Date Coagulation defect, unspecified (Multi) Blood clotting disorder Other disorders of lung Lung trouble Personal history of malignant neoplasm, unspecified History of malignant neoplasm Personal history of other diseases of the circulatory system History of hypertension Personal history of other diseases of the circulatory system History of coronary artery disease Personal history of other diseases of the musculoskeletal system and connective tissue History of arthritis Personal history of other diseases of the nervous system and sense organs 06/20/2020 History of cataract Personal history of other diseases of the respiratory system History of asthma Personal history of other diseases of the respiratory system History of bronchitis Personal history of other diseases of the respiratory system History of chronic obstructive lung disease Personal history of other diseases of urinary system History of bladder problems Personal history of other specified conditions History of chest pain Presence of cardiac pacemaker History of cardiac pacemaker Surgical History Past Surgical History: Procedure Laterality Date OTHER SURGICAL HISTORY 06/20/2020 Mastectomy bilateral OTHER SURGICAL HISTORY 06/20/2020 Hysterectomy OTHER SURGICAL HISTORY 06/20/2020 Heart surgery OTHER SURGICAL HISTORY 03/20/2021 Knee replacement OTHER SURGICAL HISTORY 03/20/2021 Laparoscopic partial colectomy OTHER SURGICAL HISTORY 03/20/2021 Esophagogastroduodenoscopy OTHER SURGICAL HISTORY 03/20/2021 Colonoscopy Family History No family history on file. Social History Social History Socioeconomic History Marital status: Spouse name: Not on file Number of children: Not on file Years of education: Not on file Highest education level: Not on file Occupational History Not on file Tobacco Use Smoking status: Not on file Smokeless tobacco: Not on file Substance and Sexual Activity Alcohol use: Not on file Drug use: Not on file Sexual activity: Not on file Other Topics Concern Not on file Social History Narrative Not on file Social Determinants of Health Financial Resource Strain: Low Risk (05/03/2022) Received from [facility] Overall Financial Resource Strain (CARDIA) Difficulty of Paying Living Expenses: Not hard at all Food Insecurity: No Food Insecurity (01/15/2024) Received from [facility] Hunger Screening Within the past 12 months we worried whether our food would run out before we got money to buy more.: Never True Within the past 12 months the food we bought just didn't last and we didn't have money to get more.: Never True Transportation Needs: No Transportation Needs (01/15/2024) Received from [facility] PRAPARE - Transportation Lack of Transportation (Medical): No Lack of Transportation (Non-Medical): No Physical Activity: Not on file Stress: No Stress Concern Present (05/21/2023) Received from [facility] [place] of Occupational Health - Occupational Stress Questionnaire Feeling of Stress : Not at all Social Connections: Unknown (05/21/2023) Received from [facility] Social Connection and Isolation Panel [NHANES] Frequency of Communication with Friends and Family: More than three times a week Frequency of Social Gatherings with Friends and Family: Not on file Attends Quaker Services: Not on file Active Member of Clubs or Organizations: Not on file Attends Club or Organization Meetings: Not on file Marital Status: Not on file Intimate Partner Violence: Unknown (10/08/2023) Received from [facility] Safety & Environment Fear of Current or Ex-Partner: Not on file Emotionally Abused: Not on file Physically Abused: Not on file Sexually Abused: Not on file Physically or Sexually Abused: Not on file Housing Stability: Low Risk (01/15/2024) Received from [facility] Housing Instability Are you worried or concerned that in the next two months you may not have stable housing that you own, rent or stay in as a part of a household?: No Tobacco Use: Low Risk (03/17/2024) Received from [facility] Patient History Smoking Tobacco Use: Never Smokeless Tobacco Use: Never Passive Exposure: Not on file Recent Concern: Tobacco Use - Medium Risk (03/16/2024) Received from [facility] Patient History Smoking Tobacco Use: Former Smokeless Tobacco Use: Never Passive Exposure: Not on file Social History Substance and Sexual Activity Alcohol Use Not on file Allergies Allergies Allergen Reactions Holiday Itching, Other, Unknown and Rash Other reaction(s): Welts welts Droxidopa Shortness of breath Latex Itching, Other and Rash Patient states allergic to Latex Patient states allergic to Latex Other reaction(s): Welts Patient states allergic to Latex Nickel Hives, Itching, Other and Rash Other reaction(s): Welts Acetaminophen-Codeine Unknown, GI intolerance, GI Upset, Nausea Only and Other Other reaction(s): Abdominal Pain Codeine GI intolerance, Unknown, Nausea Only and Other Other reaction(s): nausea, severe Acetaminophen-codeine Other reaction(s): nausea, severe Acetaminophen-codeine Other reaction(s): nausea, severe Other reaction(s): Abdominal Pain Levonorgestrel-Ethinyl Estrad Cough, Itching and Runny nose Other Other Annotation - [id number]: Nickel, Holiday, Gold Compounding Gold Au 198 Unknown, Itching, Other and Rash Other reaction(s): Welts itching Gold Keratinate Unknown, Itching, Other and Rash itching Holiday Nickel welts Other reaction(s): Welts Other reaction(s): Intolerance itching Gold Sodium Thiomalate (Bulk) Itching, Other and Rash Other reaction(s): Welts Meds Scheduled medications acetaminophen, 650 mg, g-tube, Once polyethylene glycol, 17 g, oral, Daily Continuous medications PRN medications PRN medications: acetaminophen OR acetaminophen OR acetaminophen Objective Vitals Visit Vitals BP (!) 144/97 Pulse 70 Temp 37.4 C (99.3 F) (Temporal) Resp 18 Ht 1.6 m (5' 3 ) Wt 47.2 kg (104 lb) SpO2 100% BMI 18.42 kg/m BSA 1.45 m Physical Examination: GEN: Weak, frail A&Ox3, no acute distress, uncomfortable due to lower back pain. Conversationaland appropriate. No confusion or gross mental status changes. EYES: EOMI, non-injected sclera. ENT: Moist mucous membranes, no apparent injuries or lesions. CARDIO: Normal rate and regular rhythm. No murmurs, rubs, or gallops. 2+ equal pulses of the distalextremities. PULM: Clear to auscultation bilaterally. No rales, rhonchi, or wheezes. Good symmetric chest expansion. GI: PEG tube appreciated no erythema or edema noted SKIN: Warm and dry, no rashes or lesions. MSK: ROM intact the extremities without contractures. EXT: No peripheral edema, contusions, or wounds. NEURO: Cranial nerves II-XII grossly intact. PSYCH: Appropriate mood and behavior, converses and responds appropriately during exam. I/Os No intake or output data in the 24 hours ending 03/28/24 1828 Vent Settings Labs: Results from last 72 hours Lab Units 03/28/24 1403 SODIUM mmol/L 141 POTASSIUM mmol/L 4.9 CHLORIDE mmol/L 103 CO2 mmol/L 29 BUN mg/dL 25* CREATININE mg/dL 1.10* GLUCOSE mg/dL 94 CALCIUM mg/dL 9.3 ANION GAP mmol/L 14 EGFR mL/min/1.73m*2 50* Results from last 72 hours Lab Units 03/28/24 1403 WBC AUTO x10*3/uL 7.1 HEMOGLOBIN g/dL 10.4* HEMATOCRIT % 34.6* PLATELETS AUTO x10*3/uL 324 NEUTROS PCT AUTO % 66.8 LYMPHS PCT AUTO % 19.6 MONOS PCT AUTO % 9.8 EOS PCT AUTO % 2.5 Lab Results Component Value Date CALCIUM 9.3 03/28/2024 No results found for: CRP @LABRESULTGRID@ Micro/ID: No results found for the last 90 days. No lab exists for component: AGALPCRNB .ID No results found for: URINECULTURE , BLOODCULT , CSFCULTSMEAR Images ECG 12 lead Atrial-paced rhythm Left axis deviation Voltage criteria for left ventricular hypertrophy Abnormal ECG When compared with ECG of 03-JUL-2020 15:36, QRS axis Shifted left XR chest 1 view Narrative: Interpreted By: Reyna Jin, STUDY: XR CHEST 1 VIEW; 03/28/2024 2:17 pm INDICATION: Signs/Symptoms:difficulty swallowing. COMPARISON: 11/29/2021. ACCESSION NUMBER(S): [id number] ORDERING CLINICIAN: MALORIE MALDONADO FINDINGS: CARDIOMEDIASTINAL SILHOUETTE: Aortic stent is now seen extending from the proximal ascending aorta level to the distal descending aorta level. Cardiac silhouette is enlarged. Left-sided dual lead cardiac pacing device again seen. Coronary artery calcifications and/or stents again seen. LUNGS: Inspiratory volume is lower. Irregular interstitial thickening is present throughout both lungs. Mild bibasilar atelectasis or scarring is present. No definite pleural effusion. No appreciable pneumothorax. ABDOMEN: No remarkable upper abdominal findings. BONES: Lower thoracic mild dextrocurvature is present. Degenerative changes of the shoulders are partially visualized. Impression: 1. Cardiomegaly. Ascending and descending aortic stent now present. 2. Irregular interstitial thickening bilaterally may be chronic. Interstitial edema and atypical infection not excluded. 3. Mild bibasilar atelectasis or scarring. MACRO: None. Signed by: Reyna Jin 03/28/2024 2:47 PM Dictation workstation: [id number] Assessment and Plan Problem list: Principal Problem: Dysphagia Active Problems: Dysphagia, unspecified type Leyla Lambert is a 83 y.o. 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 Acute Medical Issues #Uncontrolled hypertension/hypertensive urgency in the setting of worsening back pain with an intensity of 9 out of 10 -Blood pressure upon admission elevated at 217/86. -25 mg of hydralazine was given in the ED. Blood pressure went down to 144/97 -Will continue her home hydralazine 25 mg every 8 hours -Goal lower mean arterial or systolic blood pressure by no more than 10 to 20% of the first hour -Lower with additional 5 to 10% over the next 23 hours as needed for no more than 25% in the first 24 hours -Will consider labetalol 20 to 80 mg IV bolus every 10 minutes -May give hydralazine 10 mg every 4 hours if systolic blood pressure above 165 diastolic blood pressure above 100 with consideration for rebound hypertension -If blood pressure is not controlled we will have to transfer the patient to the ICU for a nicardipine drip at 5 mg/h #Worsening low back pain -Chronic in nature but worse today likely driving her blood pressure. 9 out of 10 intensity -Pain meds in place: - Tylenol 650 mg Q4Hr prn for mild pain - Oxycodone 5mg moderate pain - Oxycodone 10 mg severe pain - Dilaudid for breakthrough pain #Dysphagia -Pediatric surgery on board -Patient PEG dependent. Nutrition consulted appreciate recs -Modified barium swallow ordered and pending -Scheduled for EGD on Chronic Medical Issues #A-fib/aortic stent/CAD: Continue metoprolol succinate XL 100 mg every 24, Eliquis 2.5 mg twice daily, continue Plavix 75 mg daily (prevention status post percutaneous coronary intervention) #Hypothyroidism: Continue levothyroxine 112 mcg daily #COPD/asthma: Continue Trelegy Ellipta 100-60 2.5-25 mcg, Singulair 10 mg once daily #Parkinson's: Continue Sinemet #Dizziness/lightheadedness: Will hold home Florinef IVF: PRN Electrolytes: Replete as needed Diet: N.p.o. GI ppx: PPI DVT ppx: Eliquis/SCD Antibiotics: None Lines: 1 PIV Code: Full Code Code Status: Full Code Emergency Contact: Extended Emergency Contact Information Primary Emergency Contact: Adam Lambert Relation: Spouse Disposition: 83 y.o.female admitted for esophageal dysmotility/dysphagia, uncontrolled hypertension, weakness. Bariatric surgery on board. Hospital stay over 48 hours. Savanna Avilez MD 03/28/2024 Internal Medicine PGY-3 Associated attestation - Donnie Thorpe DO - 03/29/2024 1:00 PM EDT I saw and evaluated the patient. I personally obtained the carvalho and critical portions of the historyand physical exam or was physically present for carvalho and critical portions performed by the resident/fellow. I reviewed the resident/fellow's documentation and discussed the patient with the resident/f get. I agree with the resident/fellow's medical decision making as documented in the note. 83 yo F with a hx of achalasia s/p multiple esophageal dilations, aortic dissection, who was admitted at the request of bariatric surgery for EGD. She had a barium swallow done today and is planned for an EGD on . Bariatric surgery following. She is feeling very nauseous today, we will optimize her antiemetic regimen. Donnie Thorpe DO [facility] Work Phone: 1(173) 764-867208-12-2024 History and physical note* Savanna Avilez MD - 03/28/2024 6:28 PM EDT Chief Complaint Chief Complaint Patient presents with Dizziness PT presents to the ER with dizziness that began this morning when she woke up. PT states that she has been feeling very weak and tired, Pts PCP wanted her to come get checked out. PT denies any chestpain or shortness of breath. PT has a hx of HTN and has been taking medications for this. 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 HPI HPI: Lyela Lambert is a 83 y.o. 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 According to the patient she was able to take her morning medicines and has not skipped on any of her meds. The patient was sent by Dr. Julio bariatric surgeon. According to medical records the patient has had multiple esophageal dilations in the past without much success and for this reason she Jeffs 3 hours to see her bariatric surgeon. An upper GI was done in [place] that showed marked dysmotility. She admits to having diarrhea with tube feeds. Pills get stuck in her throat with a sip of water. She has a sensation of choking every time she eats. Upon arrival to the ED her blood pressure registered at 207/87. Patient reports generalized weakness but denies nausea or vomiting. Blood work was notable for mild elevation in creatinine to 1.1, and slight anemia but denies any active bleeding or hematemesis. Chest x-ray was noted to have a stable aortic stent. EKG was nonischemic. The patient will be admitted for possible esophageal dilation and a modified barium swallow and blood pressure optimization. ED course: She was given her daily hydralazine and transferred to the floor for further management Vitals: Temperature 37.4, heart rate 70, respirations 18, blood pressure 207/87 now patient is at 144/97 with an SpO2 of 100% on room air Labs: -CBC: Hemoglobin 10.4, hematocrit 34.7, otherwise unremarkable -CMP: Creatinine 1.1 -Magnesium 2.59 -Troponin 1, high-sensitivity 13 and downtrending Imaging: -CXR: Chest x-ray was notable for cardiomegaly with a stent in the ascending or descending aorta. Irregular interstitial thickening bilaterally chronic. -EKG: No ST changes otherwise unremarkable Interventions: 25 mg hydralazine Antivert will provide management. ROS: 12 points review of system is negative except as stated in the HPI above. Past Medical History Past Medical History: Diagnosis Date Coagulation defect, unspecified (Multi) Blood clotting disorder Other disorders of lung Lung trouble Personal history of malignant neoplasm, unspecified History of malignant neoplasm Personal history of other diseases of the circulatory system History of hypertension Personal history of other diseases of the circulatory system History of coronary artery disease Personal history of other diseases of the musculoskeletal system and connective tissue History of arthritis Personal history of other diseases of the nervous system and sense organs 06/20/2020 History of cataract Personal history of other diseases of the respiratory system History of asthma Personal history of other diseases of the respiratory system History of bronchitis Personal history of other diseases of the respiratory system History of chronic obstructive lung disease Personal history of other diseases of urinary system History of bladder problems Personal history of other specified conditions History of chest pain Presence of cardiac pacemaker History of cardiac pacemaker Surgical History Past Surgical History: Procedure Laterality Date OTHER SURGICAL HISTORY 06/20/2020 Mastectomy bilateral OTHER SURGICAL HISTORY 06/20/2020 Hysterectomy OTHER SURGICAL HISTORY 06/20/2020 Heart surgery OTHER SURGICAL HISTORY 03/20/2021 Knee replacement OTHER SURGICAL HISTORY 03/20/2021 Laparoscopic partial colectomy OTHER SURGICAL HISTORY 03/20/2021 Esophagogastroduodenoscopy OTHER SURGICAL HISTORY 03/20/2021 Colonoscopy Family History No family history on file. Social History Social History Socioeconomic History Marital status: Spouse name: Not on file Number of children: Not on file Years of education: Not on file Highest education level: Not on file Occupational History Not on file Tobacco Use Smoking status: Not on file Smokeless tobacco: Not on file Substance and Sexual Activity Alcohol use: Not on file Drug use: Not on file Sexual activity: Not on file Other Topics Concern Not on file Social History Narrative Not on file Social Determinants of Health Financial Resource Strain: Low Risk (05/03/2022) Received from [facility] Overall Financial Resource Strain (CARDIA) Difficulty of Paying Living Expenses: Not hard at all Food Insecurity: No Food Insecurity (01/15/2024) [facility] Within the past 12 months we worried whether our food would run out before we got money to buy more.: Never True Within the past 12 months the food we bought just didn't last and we didn't have money to get more.: Never True Transportation Needs: No Transportation Needs (01/15/2024) [facility] Lack of Transportation (Medical): No Lack of Transportation (Non-Medical): No Physical Activity: Not on file Stress: No Stress Concern Present (05/21/2023) [facility] [place] [facility] - Occupational Stress Questionnaire Feeling of Stress : Not at all Social Connections: Unknown (05/21/2023) [facility] Social Connection and Isolation Panel [NHANES] Frequency of Communication with Friends and Family: More than three times a week Frequency of Social Gatherings with Friends and Family: Not on file Attends Quaker Services: Not on file Active Member of Clubs or Organizations: Not on file Attends Club or Organization Meetings: Not on file Marital Status: Not on file Intimate Partner Violence: Unknown (10/08/2023) Received from [facility] Safety & Environment Fear of Current or Ex-Partner: Not on file Emotionally Abused: Not on file Physically Abused: Not on file Sexually Abused: Not on file Physically or Sexually Abused: Not on file Housing Stability: Low Risk (01/15/2024) Received from [facility] Housing Instability Are you worried or concerned that in the next two months you may not have stable housing that you own, rent or stay in as a part of a household?: No Tobacco Use: Low Risk (03/17/2024) Received from [facility] Healthcare Patient History Smoking Tobacco Use: Never Smokeless Tobacco Use: Never Passive Exposure: Not on file Recent Concern: Tobacco Use - Medium Risk (03/16/2024) [facility] Patient History Smoking Tobacco Use: Former Smokeless Tobacco Use: Never Passive Exposure: Not on file Social History Substance and Sexual Activity Alcohol Use Not on file Allergies Allergies Allergen Reactions Holiday Itching, Other, Unknown and Rash Other reaction(s): Welts welts Droxidopa Shortness of breath Latex Itching, Other and Rash Patient states allergic to Latex Patient states allergic to Latex Other reaction(s): Welts Patient states allergic to Latex Nickel Hives, Itching, Other and Rash Other reaction(s): Welts Acetaminophen-Codeine Unknown, GI intolerance, GI Upset, Nausea Only and Other Other reaction(s): Abdominal Pain Codeine GI intolerance, Unknown, Nausea Only and Other Other reaction(s): nausea, severe Acetaminophen-codeine Other reaction(s): nausea, severe Acetaminophen-codeine Other reaction(s): nausea, severe Other reaction(s): Abdominal Pain Levonorgestrel-Ethinyl Estrad Cough, Itching and Runny nose Other Other Annotation - [id number]: Nickel, Holiday, Gold Compounding Gold Au 198 Unknown, Itching, Other and Rash Other reaction(s): Welts itching Gold Keratinate Unknown, Itching, Other and Rash itching Holiday Nickel welts Other reaction(s): Welts Other reaction(s): Intolerance itching Gold Sodium Thiomalate (Bulk) Itching, Other and Rash Other reaction(s): Welts Meds Scheduled medications acetaminophen, 650 mg, g-tube, Once polyethylene glycol, 17 g, oral, Daily Continuous medications PRN medications PRN medications: acetaminophen OR acetaminophen OR acetaminophen Objective Vitals Visit Vitals BP (!) 144/97 Pulse 70 Temp 37.4 C (99.3 F) (Temporal) Resp 18 Ht 1.6 m (5' 3 ) Wt 47.2 kg (104 lb) SpO2 100% BMI 18.42 kg/m BSA 1.45 m Physical Examination: GEN: Weak, frail A&Ox3, no acute distress, uncomfortable due to lower back pain. Conversationaland appropriate. No confusion or gross mental status changes. EYES: EOMI, non-injected sclera. ENT: Moist mucous membranes, no apparent injuries or lesions. CARDIO: Normal rate and regular rhythm. No murmurs, rubs, or gallops. 2+ equal pulses of the distalextremities. PULM: Clear to auscultation bilaterally. No rales, rhonchi, or wheezes. Good symmetric chest expansion. GI: PEG tube appreciated no erythema or edema noted SKIN: Warm and dry, no rashes or lesions. MSK: ROM intact the extremities without contractures. EXT: No peripheral edema, contusions, or wounds. NEURO: Cranial nerves II-XII grossly intact. PSYCH: Appropriate mood and behavior, converses and responds appropriately during exam. I/Os No intake or output data in the 24 hours ending 03/28/24 1828 Vent Settings Labs: Results from last 72 hours Lab Units 03/28/24 1403 SODIUM mmol/L 141 POTASSIUM mmol/L 4.9 CHLORIDE mmol/L 103 CO2 mmol/L 29 BUN mg/dL 25* CREATININE mg/dL 1.10* GLUCOSE mg/dL 94 CALCIUM mg/dL 9.3 ANION GAP mmol/L 14 EGFR mL/min/1.73m*2 50* Results from last 72 hours Lab Units 03/28/24 1403 WBC AUTO x10*3/uL 7.1 HEMOGLOBIN g/dL 10.4* HEMATOCRIT % 34.6* PLATELETS AUTO x10*3/uL 324 NEUTROS PCT AUTO % 66.8 LYMPHS PCT AUTO % 19.6 MONOS PCT AUTO % 9.8 EOS PCT AUTO % 2.5 Lab Results Component Value Date CALCIUM 9.3 03/28/2024 No results found for: CRP @LABRESULTGRID@ Micro/ID: No results found for the last 90 days. No lab exists for component: AGALPCRNB .ID No results found for: URINECULTURE , BLOODCULT , CSFCULTSMEAR Images ECG 12 lead Atrial-paced rhythm Left axis deviation Voltage criteria for left ventricular hypertrophy Abnormal ECG When compared with ECG of 03-JUL-2020 15:36, QRS axis Shifted left XR chest 1 view Narrative: Interpreted By: Reyna Jin, STUDY: XR CHEST 1 VIEW; 03/28/2024 2:17 pm INDICATION: Signs/Symptoms:difficulty swallowing. COMPARISON: 11/29/2021. ACCESSION NUMBER(S): [id number] ORDERING CLINICIAN: MALORIE MALDONDAO FINDINGS: CARDIOMEDIASTINAL SILHOUETTE: Aortic stent is now seen extending from the proximal ascending aorta level to the distal descending aorta level. Cardiac silhouette is enlarged. Left-sided dual lead cardiac pacing device again seen. Coronary artery calcifications and/or stents again seen. LUNGS: Inspiratory volume is lower. Irregular interstitial thickening is present throughout both lungs. Mild bibasilar atelectasis or scarring is present. No definite pleural effusion. No appreciable pneumothorax. ABDOMEN: No remarkable upper abdominal findings. BONES: Lower thoracic mild dextrocurvature is present. Degenerative changes of the shoulders are partially visualized. Impression: 1. Cardiomegaly. Ascending and descending aortic stent now present. 2. Irregular interstitial thickening bilaterally may be chronic. Interstitial edema and atypical infection not excluded. 3. Mild bibasilar atelectasis or scarring. MACRO: None. Signed by: Reyna Jin 03/28/2024 2:47 PM Dictation workstation: [id number] Assessment and Plan Problem list: Principal Problem: Dysphagia Active Problems: Dysphagia, unspecified type Leyla Lambert is a 83 y.o. 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 Acute Medical Issues #Uncontrolled hypertension/hypertensive urgency in the setting of worsening back pain with an intensity of 9 out of 10 -Blood pressure upon admission elevated at 217/86. -25 mg of hydralazine was given in the ED. Blood pressure went down to 144/97 -Will continue her home hydralazine 25 mg every 8 hours -Goal lower mean arterial or systolic blood pressure by no more than 10 to 20% of the first hour -Lower with additional 5 to 10% over the next 23 hours as needed for no more than 25% in the first 24 hours -Will consider labetalol 20 to 80 mg IV bolus every 10 minutes -May give hydralazine 10 mg every 4 hours if systolic blood pressure above 165 diastolic blood pressure above 100 with consideration for rebound hypertension -If blood pressure is not controlled we will have to transfer the patient to the ICU for a nicardipine drip at 5 mg/h #Worsening low back pain -Chronic in nature but worse today likely driving her blood pressure. 9 out of 10 intensity -Pain meds in place: - Tylenol 650 mg Q4Hr prn for mild pain - Oxycodone 5mg moderate pain - Oxycodone 10 mg severe pain - Dilaudid for breakthrough pain #Dysphagia -Pediatric surgery on board -Patient PEG dependent. Nutrition consulted appreciate recs -Modified barium swallow ordered and pending -Scheduled for EGD on Chronic Medical Issues #A-fib/aortic stent/CAD: Continue metoprolol succinate XL 100 mg every 24, Eliquis 2.5 mg twice daily, continue Plavix 75 mg daily (prevention status post percutaneous coronary intervention) #Hypothyroidism: Continue levothyroxine 112 mcg daily #COPD/asthma: Continue Trelegy Ellipta 100-60 2.5-25 mcg, Singulair 10 mg once daily #Parkinson's: Continue Sinemet #Dizziness/lightheadedness: Will hold home Florinef IVF: PRN Electrolytes: Replete as needed Diet: N.p.o. GI ppx: PPI DVT ppx: Eliquis/SCD Antibiotics: None Lines: 1 PIV Code: Full Code Code Status: Full Code Emergency Contact: Extended Emergency Contact Information Primary Emergency Contact: Adam Lambert Relation: Spouse Disposition: 83 y.o.female admitted for esophageal dysmotility/dysphagia, uncontrolled hypertension, weakness. Bariatric surgery on board. Hospital stay over 48 hours. Savanna Avilez MD 03/28/2024 Internal Medicine PGY-3 Associated attestation - Donnie Thorpe DO - 03/29/2024 1:00 PM EDT I saw and evaluated the patient. I personally obtained the carvalho and critical portions of the historyand physical exam or was physically present for carvalho and critical portions performed by the resident/fellow. I reviewed the resident/fellow's documentation and discussed the patient with the resident/f get. I agree with the resident/fellow's medical decision making as documented in the note. 83 yo F with a hx of achalasia s/p multiple esophageal dilations, aortic dissection, who was admitted at the request of bariatric surgery for EGD. She had a barium swallow done today and is planned for an EGD on . Bariatric surgery following. She is feeling very nauseous today, we will optimize her antiemetic regimen. Donnie Thorpe DO documented in this [facility] Work Phone: 1(662) 413-642908-12-2024 Consult note* Rock Alanis MD - 03/28/2024 4:50 PM EDT Reason For Consult Dysphagia, poor enteral feeding tolerance History Of Present Illness Leyla Lambert is a 83 y.o. female presenting with dysphagia and poor enteric intake. Seen in the bariatric office earlier today. Feeding tube placed 01/16/24 @ [facility] [address] Dr. d/t not being able to swallow at all & weight loss (supposed to do tube feedings 5 times daily but doesn't because sometimes can eat estimates PO intake 50% of time); takes pills by mouth. Hx of Aortic Dissection in November- outside notes attached below. Had robotic myotomy and toupet in may 2023 and notes minimal improvement in dysphagia. Had a dilation with stricture at 38 cm in 09/09 and then in November noted to have a thoracid aortic dissection with TVAR. Then got a g tube (PEG) placed in January. Now comes in with dysphagia. Food sticking in chest. Uses feeding tube once/day and trying to use 5 times but leading to diarrhea. Not sure of her formula. Tolerates watermelon and pizza. 50% of intake this summer was by mouth. G tube site clean. Had an upper gi in [place] in September and no HH. Marked dysmotilty. She has had throat stretched 3 times with no relief. She has lost a lot of weight. Gets too much diarrhea with the tube feeds. Took a sip of water and stuck in her throat right now. Water is one of worst things to get down. Gets stuck in upper throat. Sometimes can eat some things like corn and pizza. Yesterday did a buffet and nothing went down. Then tried again. Feels like she is choking. Watermelon is ok. Feels dizzy in the office.. Did not eat this morning. Past Medical History She has a past medical history of Coagulation defect, unspecified (Multi), Other disorders of lung,Personal history of malignant neoplasm, unspecified, Personal history of other diseases of the circulatory system, Personal history of other diseases of the circulatory system, Personal history of other diseases of the musculoskeletal system and connective tissue, Personal history of other diseases of the nervous system and sense organs (06/20/2020), Personal history of other diseases of the respiratory system, Personal history of other diseases of the respiratory system, Personal history of other diseases of the respiratory system, Personal history of other diseases of urinary system, Personal history of other specified conditions, and Presence of cardiac pacemaker. Surgical History She has a past surgical history that includes Other surgical history (06/20/2020); Other surgical history (06/20/2020); Other surgical history (06/20/2020); Other surgical history (03/20/2021); Othersurgical history (03/20/2021); Other surgical history (03/20/2021); and Other surgical history (03/20/2021). Social History She has no history on file for tobacco use, alcohol use, and drug use. Family History No family history on file. Allergies Holiday, Droxidopa, Latex, Nickel, Acetaminophen-codeine, Codeine, Levonorgestrel-ethinyl estrad, Other, Gold au 198, Gold keratinate, and Gold sodium thiomalate (bulk) Review of Systems Review of Systems Constitutional: Negative for fever and malaise/fatigue. HENT: Negative for congestion. Eyes: Negative. Cardiovascular: Negative for chest pain. Respiratory: Negative for shortness of breath. Endocrine: Negative. Skin: Negative. Musculoskeletal: Positive for joint pain. Gastrointestinal: Positive for diarrhea. Negative for abdominal pain. Genitourinary: Negative. Neurological: Negative. Psychiatric/Behavioral: Negative. Allergic/Immunologic: Negative. Physical Exam Physical Exam: Constitutional: thin, wake/alert/oriented x3, in pain, alert and cooperative Eyes: PERRL, EOMI, clear sclera Head/Neck: Neck supple, no apparent injury, No JVD, trachea midline Respiratory/Thorax: good chest expansion, thorax symmetric Cardiovascular: Regular, rate and rhythm, 2+ equal pulses of the extremities Gastrointestinal: Nondistended, soft, feeding tube in place Musculoskeletal: ROM intact, no joint swelling, normal strength, L hip tenderness Extremities: normal extremities, no cyanosis edema, contusions or wounds, no clubbing Neurological: alert and oriented x3, intact senses, Psychological: Appropriate mood and behavior Skin: Warm and dry, no lesions, no rashes Last Recorded Vitals Blood pressure (!) 207/87, pulse 65, temperature 37.4 C (99.3 F), temperature source Temporal, resp. rate (!) 24, height 1.6 m (5' 3 ), weight 47.2 kg (104 lb), SpO2 100%. Assessment/Plan 83-year-old female with with history of achalasia status post robotic Heller myotomy and Toupet fundoplication in 05/2023, s/p EGD with dilation in 08/2023, s/p endovascular intervention for aortic dissection and placement of PEG in 01/2024 with persistent dysphagia and poor PO/feeding tube tolerance. Also found to be dizzy in the office and hypertensive in the ED. Plan is as follows after admission to hospitalist service. Get nutrition 4-5 times/day. Try metamucil for the diarrhea. Just take twice/day. See if helps. Try putting chin to chest when drinking. I would like to put down a camera, possible botox and dilation. You will need to stop blood thinners for this. Will add on for 03/31 Try some saltine crackers when you get the foam. Stay upright after meals. We will get a modified barium swallow. Get the esophagram pushed over in pacs from [facility] I spent 90 minutes in the professional and overall care of this patient. Rock Alanis MD [facility] Work Phone: [phone] 481-869008-12-2024 History of Present illness Narrative* Nolan Julio MD [facility] - 03/28/2024 10:30 AM EDT Images from the original note were not included. GENERAL SURGERY CLINIC FOLLOW UP NOTE CLINIC DATE: 03/28/24 NAME: Leyla Lambert 83 y.o. THIS VISIT WEIGHT / BMI: 104 LBS/ BMI: 47.2 Wt Readings from Last 1 Encounters: 03/28/24 46.6 kg (102 lb 11.8 oz) BMI Readings from Last 1 Encounters: 03/28/24 18.20 kg/m WEIGHT / BMI HX: Wt Readings from Last 3 Encounters: 03/28/24 46.6 kg (102 lb 11.8 oz) 03/28/24 47.2 kg (104 lb) 07/03/21 44.1 kg (97 lb 4.8 oz) BMI Readings from Last 3 Encounters: 03/28/24 18.20 kg/m 03/28/24 18.42 kg/m 07/03/21 17.24 kg/m SURGEON: Dr. Nolan Julio PRESENTING TODAY for General Surgery [facility]UV (no surgery to date): is a 83 y.o. female. 03/22/24 Self verbalizes concerns: Hernia you saw at her EGD (nobody has addressed that & wondering if HHR would make her feel better, eat better) & still a lot of mucous production. Feeding tube placed 01/16/24@ [facility] [place] Dr. Guerrier d/t not being able to swallow at all & weight loss (supposed to do tube feedings 5 times daily but doesn't because sometimes can eat estimates PO intake 50% of time); takes pills by mouth. Hx of Aortic Dissection in November- outside notes attached below. Had robotic myotomy and toupet in may 2023 and notes minimal improvement in dysphagia. Had a dilation with stricture at 38 cm in 09/09 and then in November noted to have a thoracid aortic dissection with TVAR. Then got a g tube (PEG) placed in January. Now comes in with dysphagia. Food sticking in chest. Uses feeding tube once/day and trying to use 5 times but leading to diarrhea. Not sure of her formula. Tolerates watermelon and pizza. 50% of intake this summer was by mouth. G tube site clean. Had an upper gi in [place] in September and no HH. Marked dysmotilty. She has had throat stretched 3 times with no relief. She has lost a lot of weight. Gets too much diarrhea with the tube feeds. Took a sip of water and stuck in her throat right now. Water is one of worst things to get down. Gets stuck in upper throat. Sometimes can eat some things like corn and pizza. Yesterday did a buffet and nothing went down. Then tried again. Feels like she is choking. Watermelon is ok. Feels dizzy right now. Did not eat this morning. In 2020 manometry: The study of the LES reveals a shortned length and a fixed hiatal hernia. The LES pressur eis low at 7 mmHg and relaxes completely. The esophageal body study demonstrates normal peristalsis and contraction amplitudes. Bolus transit is decreased at 40%. The esophageal body study demonstrates some pressurizaiton and high velocities with some liquid swallows. This may be due to high pressure seen between the LES and the hiatus. By traditional manometry only 50% of swallows are peristaltic but by chicago classification the study is normal. Diagnosis Overall the patient has a haital hernia and some decreased peristalsis that may be related to the dysphagia. In addition there is high pressure between the LES and hiatus. Signature IMPEDANCE: - There was complete bolus clearance in 40 % of swallows (normal > 80 percent). In 2022: Findings: 1. Esophageal Contractions: 0% of contractions were normal, 100% of total contractions were ineffective. 0% had delayed Latency (DL). Mean DCI (Distal Contractile Integril) 198 mmHg.s.cm. 2. Lower Esophageal Sphincter: The patient s LES morphology is type I, meaning no separation between LES and diaphragm. The length of the LES is 4.0 cm, with 2.8 cm being intra-abdominal. The Average Mid-Resp LESP is 46 mmHg, the normal is between 10 and 45. The median IRP 30 mmHg, with a normal measurement being below 20. 3. Upper Esophageal Sphincter: Avg UESP 104 mmHg. Normal is between 30 and 118 mmHg. Total length 3.2 cm. Impedance: 0 % of liquid swallows had complete transit (normal >80%). All had inappropriate contractile vigor (CV) and the contraction pattern was weak/failed. 60% of viscous swallows had complete transit (normal >70%). Conclusion: Elevated IRP (30) and aperistalsis without panesophageal pressurization consistent with type I achalasia CURRENT SYMPTOMS: Abdominal pain: Yes Abdominal bloating: No Burping: No Constipation: No Diarrhea: Yes Experiencing hunger: Yes Food Intolerances: Yes - most everything comes back up if taken by mouth Food Sticking: Yes - feels stuck in throat Gassy: No Hiccups: No Hx Gastric Ulcers: No Nausea/vomiting: No Symptoms Affect Ability to Excercise:Yes DIET HISTORY: Carbonated Beverages: Yes Caffeinated Beverages: No Fluid intake: feels not always staying hydrated oz/day GERD - Health Related Quality of Life Questionnaire (GERD- HRQL) On PPI TUMS at night takes to help with all the sinus drainage, mucous How bad is the heartburn? 0 = No symptoms Heartburn when lying down? 0 = No symptoms Heartburn when standing up? 0 = No symptoms Heartburn after meals? 0 = No symptoms Does heartburn change your diet? 0 = No symptoms Does heartburn wake you from sleep? 0 = No symptoms Do you have difficulty swallowing? 5 = Symptoms are incapacitation to do daily activity Do you have pain with swallowing? 0 = No symptoms If you take medication, does this affect your daily life? 1 = Symptoms noticeable but not bothersome How bad is the regurgitation? 5 = Symptoms are incapacitation to do daily activity mostly mucous, sinus drainage or undigested foods, happens whenever attempts PO intake Regurgitation when lying down? 5 = Symptoms are incapacitation to do daily activity Regurgitation when standing up? 5 = Symptoms are incapacitation to do daily activity Regurgitation after meals? 5 = Symptoms are incapacitation to do daily activity Does regurgitation change your diet? 5 = Symptoms are incapacitation to do daily activity Does regurgitation wake you from sleep? 2 = Symptoms noticeable and bothersome but not every day How satisfied are you with your present condition? Dissatisfied Total score (calculated by summing the individual scores of questions 1-15): 33 Greatest possible score 75 (worst symptoms). Lowest possible score 0 (no symptoms). Heartburn score (calculated by summing the individual scores of questions 1-6): 0 Worst heartburn symptoms: 30. No heartburn symptoms: 0. Score less than or equal to 12 with each individual question not exceeding 2 indicate heartburn elimination. Regurgitation score (calculated by summing the individual scores of questions 10-15): 27 Worst regurgitation symptoms: 30. No regurgitation symptoms: 0. Score less than or equal to 12 with each individual question not exceeding 2 indicate regurgitationelimination. PROVIDER LAST IMPRESSION VISIT NOTE: 01/22/2022 - 80 yo female being sent to be evaluated for LPR. she has been treated for fungal esophagitis and with this . She also was noted to have some abnormalities on her modified barium swallow. EMOT shows a high pressure area between the les and hiatus. The esophagram is normal. EGD shows a hiatal hernia. She also has an infection in her knee that is beingtreated for abs. I suspect the biggest issue is poor clearance from the hiatal hernia and we see the high pressure between the LES and the hiatus. It seems from the HH she has poor clearance but minimal reflux. We discussed fixing the hiatal hernia to improve the clearance and get rid of the high pressure zone. She also notes excess saliva when she eats. this all speaks to poor clearance. We discussed this at length. All qeusitons were answered. She has a knee infection that needs to be clearedfirst. She is seeing the orthopod tomorrow. She is having trouble eating. hopefully we can proceed in February. 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 Continue to chew well. Eat slowly Get your knee managed. We will hopefully proceed on February PROVIDER 07/03/21 - 80 yo female being sent to be evaluated for LPR. she has been treated for fungal esophagitis and with this . She also was noted to have some abnormalities on her modified barium swallow. EMOT shows a high pressure area between the les and hiatus. The esophagram is normal. EGD shows a hiatal hernia. She also has an infection in her knee that is being treated for abs. I suspect the biggest issue is poor clearance from the hiatal hernia and we see the high pressure between the LES and the hiatus. It seems from the HH she has poor clearance but minimal reflux. We discussed fixing the hiatal hernia to improve the clearance and get rid of the high pressure zone. She also notes excess saliva when she eats. this all speaks to poor clearance. We discussed this at length. All qeusitons were answered. She has a knee infection that needs to be cleared first. She is seeing the orthopod tomorrow. She is having trouble eating. hopefully we can proceed in Jul Continue to chew well. Eat slowly Get your knee managed. We will hopefully proceed on Jul 23 PROVIDER 05/15/2021 80 yo female being sent to be evaluated for LPR. she has been treated for fungalesophagitis and with this . She also was noted to have some abnormalities on her modified barium swallow. EMOT shows a high pressure area between the les and hiatus. The esophagram is normal. EGD shows a hiatal hernia. She also has an infection in her knee that is being treated for abs. I suspect the biggest issue is poor clearance from the hiatal hernia and we see the high pressure between the LES and the hiatus. It seems from the HH she has poor clearance but minimal reflux. We discussed fixing the hiatal hernia to improve the clearance and get rid of the high pressure zone. She also notes excess saliva when she eats. this all speaks to poor clearance. We discussed this at length. All qeusitons were answered. She has a knee infection that needs to be cleared first. You have a hiatal hernia. We think pressure between the lower sphincter of the esophagus and the diaphragm is causing food tostick. You don't have reflux but poor clearance from the esophagus. This will require a surgery to fix once your knee is cleared. PROVIDER 03/20/21 80 yo female being sent to be evaluated for LPR. she has been treated for fungal esophagitis and with this . She also was noted to have some abnormalities on her modified barium swallow. We discussed further workup with EGD, LPR study and esophagram/ugi and manometry for further evaluation. She is agreeable to this plan. We discussed taking the evening meds before dinner to see tess makes a difference in nighttime he is on coumadin for MTHFR mutation and has had PE's. In office noted things stuck in mid esophagus. We will do an endoscopy with placement of LPR catheter. We will do a manometry. You can esophagram/UGI at any facility. Try taking the nighttime medications except for trazadone half hour before dinner. Sleep with the head of your bed elevated. Follow up after the studies. Reflux 1 )Eat slowly and chew well 2) Avoid foods known to cause reflux.Fatty foods, Spicy foods, acidic foods like tomatoes and citrus, mint, chocolate , onions caffeinated and carbonated beverages 3 )Eat smaller meals. Large meals fill the stomach and put pressure on the lower esophageal sphincter making reflux worse. 4) Stay upright for 3 hours after eating to prevent acid reflux 5) Elevate the Head of your bed 6-8 inches with some bricks so gravity can help keep gastric acid down in your stomach. Extra pillows don't work since they only raise your head Esophagogastroduodenoscopy (EGD) Order# [id number] Reading physician: Nolan Julio MD M[facility] Ordering provider: Nolan Julio MD M[facility] Study date: 09/17/2022 Result Information Status: Edited Result - FINAL (Collected: 05/01/2021 11:14) Provider Status: Ordered Result Text Result Text Patient Name: Leyla Lambert Procedure Date: 05/01/2021 11:14 AM Date of : 1940 Admit Type: Outpatient Site: [facility] Procedure Room 2 Ethnicity: Not or Race: White Attending MD: Nolan Julio MD, [id number] Procedure: Upper GI endoscopy Indications: Suspected esophageal reflux, LPRD Providers: Nolan Julio MD (Doctor), Cindy Tse RN (Nurse), Vandana Toussaint, Drying Rack Changer Referring: Nolna Julio MD Medicines: Monitored Anesthesia Care Complications: No immediate complications. Estimated blood loss: Minimal. Procedure: Pre-Anesthesia Assessment: - Prior to the procedure, a History and Physical was performed, and patient medications and allergies were reviewed. The patient is competent. The risks and benefits of the procedure and the sedation options and risks were discussed with the patient. All questions were answered and informed consent was obtained. Patient identification and proposed procedure were verified by the physician, the nurse and the otr company truck driver in the pre-procedure area in the endoscopy suite. Mental Status Examination: normal. Airway Examination: normal oropharyngeal airway and neck mobility. Respiratory Examination: clear to auscultation. CV Examination: normal. Prophylactic Antibiotics: The patient does not require prophylactic antibiotics. Prior Anticoagulants: The patient has taken Coumadin (warfarin), last dose was 7 days prior to procedure. ASA Grade Assessment: II - A patient with mild systemic disease. After reviewing the risks and benefits, the patient was deemed in satisfactory condition to undergo the procedure. The anesthesia plan was to use monitored anesthesia care (MAC). Immediately prior to administration of medications, the patient was re-assessed for adequacy to receive sedatives. The heart rate, respiratory rate, oxygen saturations, blood pressure, adequacy of pulmonary ventilation, and response to care were monitored throughout the procedure. The physical status of the patient was re-assessed after the procedure. - Prior Aspirin/ NSAID therapy: The patient has taken no aspirin or NSAID medications. After obtaining informed consent, the endoscope was passed under direct vision. Throughout the procedure, the patient's blood pressure, pulse, and oxygen saturations were monitored continuously. The endoscope was introduced through the mouth, and advanced to the third part of duodenum. The upper GI endoscopy was accomplished with ease. The patient tolerated the procedure well. An LPR probe was subsequently placed without complications. Findings: The examined esophagus was normal. The Z-line was regular and was found 38 cm from the incisors. A 2 cm hiatal hernia was present. Diffuse mild inflammation was found in the gastric antrum consistent with atrophic gastritis. Biopsies were taken with a cold forceps for Helicobacter pylori testing. Estimated blood loss was minimal. The third portion of the duodenum was normal. The gastroesophageal flap valve was visualized endoscopically and classified as Hill Grade III (minimal fold, loose to endoscope, hiatal hernia likely). Moderate Sedation: An independent trained observer was present and continuously monitored the patient. Impression: - Normal esophagus. - Z-line regular, 38 cm from the incisors. - 2 cm hiatal hernia. - Chronic atrophic gastritis. Biopsied. - Normal third portion of the duodenum. - Gastroesophageal flap valve classified as Hill Grade III (minimal fold, loose to endoscope, hiatal hernia likely). Estimated Blood Loss: Estimated blood loss was minimal. Recommendation: - Discharge patient to home (ambulatory). - Patient has a contact number available for emergencies. The signs and symptoms of potential delayed complications were discussed with the patient. Return to normal activities tomorrow. Written discharge instructions were provided to the patient. - Resume previous diet. - Continue present medications with exception of Coumadin which will be held untill LPR probe is removed. - Await pathology results and results from LPR probe study. - Return to my office in 2 weeks. Procedure Code(s): --- Professional --- 05767, Esophagogastroduodenoscopy, flexible, transoral; with biopsy, single or multiple Diagnosis Code(s): --- Professional --- K44.9, Diaphragmatic hernia without obstruction or gangrene K29.50, Unspecified chronic gastritis without bleeding CPT copyright 2020 [employer]. All rights reserved. The codes documented in this report are preliminary and upon cyber threat analyst review may be revised to meet current compliance requirements. Attending Participation: I was present and participated during the entire procedure, including non-carvalho portions. MD Nolan Up MD 05/01/2021 5:05:47 PM This report has been signed electronically. Number of Addenda: 0 Note Initiated On: 05/01/2021 11:14 AM Esophageal Impedance Order# [id number] Reading physician: Nolan Julio MD MPH Ordering provider: Nolan Julio MD MPH Study date: 09/17/2022 Result Information Status: Edited Result - FINAL (Collected: 05/01/2021 16:41) Provider Status: Ordered Result Text Result Text Patient Name: Leyla Lambert Procedure Date: 05/01/2021 4:41 PM Date of : 1940 Admit Type: Outpatient Site: [facility] Procedure Room 2 Ethnicity: Not or Race: White Attending MD: Nolan Julio MD, [id number] Procedure: Ambulatory esophageal pH and impedance monitoring Indications: Per requisition LPRD K 21.9. C/C dysphagia. LPR catheter placed Chronic cough Providers: Nolan Julio MD (Doctor)Juan Carlos Mims RN (Nurse), Referring: Nolan Julio MD Procedure: After obtaining informed consent, the probe catheter was inserted. Throughout the procedure, the patient's blood pressure, pulse, and oxygen saturations were monitored. Findings: Findings Acid Exposure Distal Body pH: Prox UES-18 Upright Upright Normal Recumbent Recumbent Normal Total Total Normal % Exposure Time (Conv.) 0.0 % < 6.3 % 0.0 % < 1.2 % 0.0 % < 4.2 % % Exposure Time (Jama) 0.0 % 0.0 % 0.0 % < 4.0 % Composite Score (normalized for 24 hours) Score Normal [place]ter 0.8 < 14.7 Reflux Episode Activity (Liquid Impedance) Upright Recumbent Total Total Normal All Reflux 13 2 15 < 73 Distal 8 2 10 Full Column 2 0 2 <= 4 Total LPR 3 0 3 <= 0 LPR Acid/Acid 0 0 0 LPR Acid/Nonacid 1 0 1 LPR Nonacid/Nonacid 2 0 2 Symptom Correlation to Reflux (Impedance) Symptom Count Distal SI Full Column SI LPR SI All Reflux SI All Reflux SAP Cough 9 11.1 % 0.0 % 11.1 % 22.2 % 98.8 % Regurg 12 8.3 % 0.0 % 0.0 % 8.3 % 0.0 % Mean Nocturnal Baseline Impedance Value Normal MNBI 998 ohms >= 2292 Impressions This study does not show clear pathologic acid reflux disease. There is minimal reflux throughout the study. However the restingt MNBI is low. 3 epuisides of lpr are noted. Diagnosis Overall the patient has some poor clearance and low MNBI and 3 columns of LPR. But no pathologic amounts of reflux disease. Signature Date / Time DISTAL IMPEDANCE: # Upright Events: 3 non-acid Procedure Code(s): --- Professional --- 51126, Esophageal function test, gastroesophageal reflux test with nasal catheter intraluminal impedance electrode(s) placement, recording, analysis and interpretation; Diagnosis Code(s): --- Professional --- R05, Cough CPT copyright 2020 [employer]. All rights reserved. The codes documented in this report are preliminary and upon cyber threat analyst review may be revised to meet current compliance requirements. MD Nolan Up MD 05/15/2021 1:38:52 PM This report has been signed electronically. Number of Addenda: 0 Note Initiated On: 05/01/2021 4:41 PM Linked Documents View Image External Procedure Report Open External Result Report Esophageal Impedance: Patient Communication Add Comments *PROVIDER (REMOTE) NOTES: [facility] Outside Information Toni Moore MD Physician Progress Notes Signed Encounter Date: 03/16/2024 Note Received: 03/22/2024 9:38 AM Signed Kristina Bazzi am scribing for and in the presence of Toni Moore MD, MS, F.A.C.C.. Patient: Leyla Lambert : 1940 Date of Visit: March 16, 2024 REASON FOR VISIT / CONSULTATION: Atrial Fibrillation (HX:sob, aortic dissection, CP, ASHD,PAF Pt ishere for follow up and pacemaker check she is hanging in she had aortic dissection on 11/19 had back pain, sob, lightheaded/dizziness, palp Denies: CP, ) Dear Douglas Will MD, I had the pleasure of seeing your patient Leyla Lambert in office today for a follow up. As you know, Ms. Lambert is a 83 y.o. female with a history of chronic moderate to severe shortness of breath often times with only mild to moderate exertion. Coronary angiography which showed moderate to severe two vessel coronary artery disease. However, I reviewed the images with an interventionalists who really felt that because of the borderline severity of the stenosis, that stenting of thiswould be unlikely to lead to significant benefits and therefore have been treating by more conservative initial guideline directed medical management approach including treatment of her anginal symptoms. She had gotten her knee replacement which has been a source of chronic pain for her. She also had an AV Medtronic pacemaker placed on 03/02/17 for chronotropic incompitence. On 03/20/17 she got a mid LAD stent. 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 Ms. Lambert says that she had gotten a cardiovascular stress test done, echocardiogram, as well as a cardiac catheterization done that had shown a 40% b lockage but no intervention was made. She also had PFT's done around 09/03 which showed a Stage II Obstructive lung defect that improved with bronchodilators. 32 days in and out of the hospital between [facility] and [facility] due to having severe headaches and passing out starting on 04/25/2018. She says prior to this she had gotten SI joint injections and wondered if this is why she was having symptoms of fluctuation in blood pressure, lightheadedness, dizziness, as well as severe headaches. She seen Dr. Garcia at her stay and he had told her she has an orthostatic hypotension intolerance and had started her on Mestinon as well as stopped many of her blood pressure medications. She had fallen after discharge from hospital. Recently I stopped her Lisinopril with plan to start her northera but unfortunately her blood pressure was to elevated to start this and therefore I went ahead and restarted her lisinopril. After last visit she was admitted for 2 days and then transferred to the [facility] for a total right knee replacement on 06/18/18. Ms. Lambert reports being admitted while in [place] for recurrent right knee infections. She was in the emergency room in [place] on 05/25/2019 for hypertension with a systolic blood pressure as high as 212 with a headache at the time. She says her Coreg was increased to 6.25 mg 2 tabs bid. Pacer interrogated in office on 05/30/2019. Tilt tabletest done on 06/10/2019 that showed abnormal head upright tilt table study. Unfortunately she has had a longstanding history of severe dysautonomia with numerous falls and with daily episodes of recurrent lightheadedness and dizziness. She says she had an echocardiogram and heart cath done in [place] in October 2019. She also says she had a PET Stress test done in [place] in October 2019. She unfortunately was admitted on 04/03/2020-04/06/2020 for Sotalol loading and again came to emergency room on 04/17/2020 for shortness of breath and tachycardia. She follows with Dr. Cesar Andrade in [place] and reports just this past winter, she had and EKG and an echocardiogram down there. Stent placement in LAD by Dr Avila at [facility] on 11/12/2021. Pacemaker checked in office by Rep on02/24/2022 but no changes were made. Admitted to hospital on 04/02/2022: Stress test on 04/02/2022 showed Normal with low risk for coronary artery disease. Echocardiogram on 04/02/2022 showed EF: 55% with evidence moderate diastolic dysfunction seen. Echocardiogram completed on 11/25/2023: Left Ventricle: Left ventricle appears normal in size. Systolic function is normal with an ejection fraction of 55-60%. The quantitative EF by [employer] biplane is 61%. Grade I diastolic dysfunction (impaired relaxation) is present. Lateral E' is 5.33 cm/s. Medial E' is 5.77 cm/s. Tricuspid Valve: There is no pulmonary hypertension. Ms. Lambert is here today for a follow up and pacemaker check. She is doing ok over all. She was in the hospital for shortness of breath and failure to thrive with bronchitis on 01/14/24. She still hasshortness of breath mostly when she gets up. She has a feeding tube for because she can't swallow. She can't eat or drink very much. She does have light headed/dizziness that is moderate. She denies any recent falls. She has a history of recurrent falls. She does get water in her feeding tube, she reports she only gets 1 cup 5 times a day. She has some palpitations at times. She denies any chest pain, pressure or tightness. She does have a lot of diarrhea. She denies having any chest pain, pressure or tightness. No abdominal pain, bleeding problems, bowel issues, problems with her medications or any other concerns at this time. No cough, fever or chills. No nausea or vomiting. Wt Readings from Last 3 Encounters: 03/16/24 47 kg (103 lb 9.6 oz) 01/26/24 48.1 kg (106 lb) 12/17/23 49.8 kg (109 lb 12.8 oz) Exercise Tolerance: Ms. Lambert reports that she has a fairly poor exercise tolerance. Her says thatshe is able to walk to parking lot to car about 50 yards without stopping, shortness of breath limits her from going further. Past Medical History: Diagnosis Date Abnormal echocardiogram 02/13/2012 EF greater than 55%. Mild diastolic dysfunction. Mild to moderate MR. Abnormal PFT 02/25/2012 moderate obstructive lung disease responsive to bronchodilators Blood disorder MTHR GENE MUTATION Blood transfusion reaction Bronchial asthma 06/21/2012 COPD CAD (coronary artery disease) 06/03/2010 Patent 1st diagonal stents x 2. 50-60% proximal RCA stenosis. CAD (coronary artery disease) 03/03/2014 EF 55%, 70% proximal stenosis in a moderate sized OM2 branch of the Cx, 60-70% proximal RCA stenosis. Cancer ([facility]) 1989,1991 breast cancer bilateral mastectomy Chronic cough 06/21/2012 COPD (chronic obstructive pulmonary disease) ([facility]) H/O cardiac catheterization 04/27/2015 LMCA: Normal 0% stenosis. LAD: Mild Irregularities 10-20%. Patent stent In D1. LCx: Mild Irregularities 10-20%.Lesion on 1st Ob Soraya: Proximal subsection. 60% stenosis. RCA: Lesion on ProxRCA: Distalsubsection. 55% stenosis. H/O cardiac catheterization 03/20/2017 LMCA: Mild irregularities 10-20%. LAD: Lesion on Mid LAD. Mid subsection. 70% stenosis. Comments: Hazy in stent restenosis. On engagement of the left main she developed hypotension in 60s-70s systolic w/noticeable ST elevation in the inferior leads. Disengagement is resolved. However on re-engagement the signs returned but again resolved on disengagement. EF:65% H/O cardiovascular stress test 12/19/2016 No signficant electrocardiographic evidence of myocardial ischemia during EKG monitoring without signficant associated arrhythmias. Patient HR went up to 66% of predicted at peak exertion which suggests only mild to moderate chronotropic incompetence. Clinical correlated required. H/O echocardiogram 11/20/2015 EF:65%. Mildly increased LV wall thickness. Mild mitral and tricuspid regurgitation. Mild pulmonaryhypertension with an estimated RV systolic pressure of 31 mmHg. Evidence of moderate diastolic dysfunction is seen. H/O echocardiogram 03/10/2017 Global LV systolic function is normal EF:>55%. LA normal in size. RA normal in size. Aortic valve structure and function normal. Mitral leaflets appear to be normal. Trace circumferential pericardial effusion is noted. Hiatal hernia History of blood clots 2007 had [place] filter put in by Dr. Alexander History of DVT (deep vein thrombosis) 1989 Hx of 5 History of pulmonary embolus (PE) 2007 She has a known gene deficiency/hypercoag state Hx of blood clots Hyperlipidemia Hypertension Hyperthyroidism CARISA on CPAP 11/19/2015 patient off several years, per vp securities Pacemaker 03/04/2017 Dr. Malorie Talley Pulmonary hypertension (HCC) patient states mild S/P cardiac cath 02/13/2012 EF >55%. Patent 1st diagonal stent. 50-60% proximal RCA stenosis. S/P cardiac cath 03/20/2017 PCI Ulcer in stomach Unspecified sleep apnea uses C Pap mx CURRENT ALLERGIES: Latex, Droxidopa, Acetaminophen-codeine, Tylenol with codeine [acetaminophen-codeine], Gold, Nickel, Seasonal, Holiday, and Gold-containing drug products REVIEW OF SYSTEMS: 14 systems were reviewed. Pertinent positives and negatives as above, all else negative. Past Surgical History: Procedure Laterality Date ABDOMEN SURGERY BREAST SURGERY BILATERAL MASTECTOMY CARDIAC CATHETERIZATION 04/28/2018 RIGHT AND LEFT HEART CATHERIZATION CARDIAC CATHETERIZATION 04/27/2015 Lesion on Prox RCA: Distal subsection.55% stenosis / LAD: Mild irregularities 10-20%.Patent stent in D1 / Lesion on 1st Ob Soraya: Proximal subsection.60% stenosis. 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 2009 LMCA-normal, LAD-patent stent, CX-normal, RCA-30%,EF55-60% ENDOSCOPY, COLON, DIAGNOSTIC EYE SURGERY bilateral cataracts HYSTERECTOMY (CERVIX STATUS UNKNOWN) PARTIAL JOINT REPLACEMENT Right 01/31/2013 knee JOINT REPLACEMENT Right 01/2013 KNEE ARTHROSCOPY Right KNEE SURGERY Right 12/2013 scraped knee cap PACEMAKER INSERTION Left 03/04/2017 PACEMAKER INSERTION PERMANENT performed by Reynold Gunn MD at [facility] OR [place] SURGERY Right VENA CAVA FILTER PLACEMENT 2007 Social History: Social History Tobacco Use Smoking status: Former Current packs/day: 0.00 Average packs/day: 2.0 packs/day for 29.0 years (58.0 ttl pk-yrs) Types: Cigarettes Start date: 02/05/1958 Quit date: 02/05/1987 Years since quittin.1 Smokeless tobacco: Never Vaping Use Vaping Use: Never used Substance Use Topics Alcohol use: No Drug use: No CURRENT MEDICATIONS: Outpatient Medications Marked as Taking for the 03/16/24 encounter (Office Visit) with Toni Moore MD Medication Sig Dispense Refill atorvastatin (LIPITOR) 40 MG tablet Take 1 tablet by mouth nightly at bedtime. apixaban (ELIQUIS) 2.5 MG TABS tablet Take by mouth 2 times daily levothyroxine (SYNTHROID) 112 MCG tablet Take 1 tablet by mouth Daily Roflumilast (DALIRESP) 500 MCG tablet Take 1 tablet by mouth daily umeclidinium bromide (INCRUSE ELLIPTA) 62.5 MCG/ACT inhaler Inhale 1 puff into the lungs daily furosemide (LASIX) 20 MG tablet Take 1 tablet by mouth daily 90 tablet 3 fludrocortisone (FLORINEF) 0.1 MG tablet Take 3 tablets by mouth daily 270 tablet 3 famotidine (PEPCID) 40 MG tablet metoprolol succinate (TOPROL XL) 100 MG extended release tablet Take 1 tablet by mouth daily 90 tablet 3 fluticasone (FLONASE) 50 MCG/ACT nasal spray 1 spray by Each Nostril route daily hydrALAZINE (APRESOLINE) 25 MG tablet Take 1 tablet by mouth every 4 hours as needed (for sbp > 180) 90 tablet 3 montelukast (SINGULAIR) 10 MG tablet Take 1 tablet by mouth nightly at bedtime. clopidogrel (PLAVIX) 75 MG tablet TAKE 1 TABLET EVERY DAY 90 tablet 3 celecoxib (CELEBREX) 200 MG capsule Take 1 capsule by mouth 2 times daily carbidopa-levodopa (SINEMET) 25-100 MG per tablet Take 1 tablet by mouth nightly cwgygesywhb-ikkluornv-qfapmy (TRELEGY ELLIPTA) 100-62.5-25 MCG/INH AEPB Inhale 1 puff into the lungs daily traZODone (DESYREL) 150 MG tablet Take 1 tablet by mouth nightly FAMILY HISTORY: family history includes Cancer in her mother. PHYSICAL EXAM: BP (!) 136/56 (Site: Left Upper Arm, Position: Sitting, Cuff Size: Medium Adult) Pulse 60 Resp 18 Ht 1.6 m (5' 3 ) Wt 47 kg (103 lb 9.6 oz) SpO2 98% BMI 18.35 kg/m Body mass index is 18.35 kg/m . Constitutional: She is oriented to person, place, and time. She appears well- developed and well-nourished. In no acute distress. HEENT: Normocephalic and atraumatic.No JVD present. Carotid bruit is not present. No mass and no thyromegaly present. No lymphadenopathy present. Cardiovascular: Normal rate, regular rhythm, normal heart sounds. Exam reveals no gallop and no friction rubs. 3/6 systolic murmur, 2nd intercostal space on the RIGHT just lateral to the sternum Pulmonary/Chest: Effort normal and breath sounds normal. No respiratory distress. She has no wheezes, rhonchi or rales. Abdominal: Soft, non-tender. Bowel sounds and aorta are normal. She exhibits noorganomegaly, mass or bruit. Extremities: Trace-1+ 1/2 up to the knees left worse than right. No cyanosis or clubbing. 2+ radialand carotid pulses. Distal extremity pulses: 2+ bilaterally. Neurological: She is alert and oriented to person, place, and time. No evidence of gross cranial nerve deficit. Coordination appeared normal. Skin: Skin is warm and dry. There is no rash or diaphoresis. Psychiatric: She has a normal mood and affect. Her speech is normal and behavior is normal. MOST RECENT LABS ON RECORD: Lab Results Component Value Date WBC 9.3 12/17/2023 HGB 9.5 (L) 12/17/2023 HCT 30.1 (L) 12/17/2023 PLT 503 (H) 12/17/2023 CHOL 185 04/03/2022 TRIG 101 04/03/2022 HDL 47 04/03/2022 ALT 15 04/02/2022 AST 22 04/02/2022 NA 138 12/17/2023 K 4.1 12/17/2023 CL 103 12/17/2023 CREATININE 0.9 12/17/2023 BUN 12 12/17/2023 CO2 25 12/17/2023 TSH 0.06 (L) 04/25/2018 INR 1.4 06/22/2023 BNP 35 02/12/2012 ASSESSMENT: Encounter Diagnoses Name Primary? SOB (shortness of breath) Yes Dissection of aorta, unspecified portion of aorta (HCC) History of chest pain ASHD (arteriosclerotic heart disease) S/P angioplasty with stent Dysautonomia orthostatic hypotension syndrome Chronic diastolic congestive heart failure (HCC) Cardiac pacemaker in situ Essential hypertension PLAN: Shortness of breath with almost any exertion: worsening shortness of breath. We discussed there are multiple possible etiologies for her shortness of breath. Deconditioning after and extended hospital stay, anemia, or possibly signs mild of heart failure onexam today. Additional Testing List: None. Aortic Dissection: Surgery completed on November 22 at [facility] Last hemoglobin on 01/23/24 was 9.3 History of Typical Chest Pain on 04/02/2022: Stable with no more chest pain. Admitted to hospital on04/02/2022: Stress test showed Normal with low risk for coronary artery disease. Antiplatelet Agent: Continue clopidogrel (Plavix): Plavix 75 mg daily. Calcium Channel Nereyda: Not indicated at this time. Statin Therapy: Not able to take due to myalgia. Counseling: I advised Ms. Lambert to call our office or go to the emergency room if she develops worsening or persistent chest pain or shortness of breath as this could be life threatening. Atherosclerotic Heart Disease: Coronary artery stent done by Dr Yadav 04/02, stent in LAD on 11/12/[address] Avila in [place] Antiplatelet Agent: Continue clopidogrel (Plavix): Plavix 75 mg daily. Beta Nereyda: Continue Metoprolol succinate (Toprol XL) 100 mg daily. Cholesterol Reduction Therapy: Contraindicated due to history of intolerance/allergy. Paroxysmal Atrial Fibrillation: Rhythm Control Asymptomatic Stroke Risk: CHADS2-VASc Score: 5/9 (6.7% stroke risk) [id number] Score for Atrial Fibrillation Stroke Risk Risk Factors Component Value C CHF Yes 1 H HTN Yes 1 A2 Age >= 75 Yes, (83 y.o.) 2 D DM No 0 S2 Prior Stroke/TIA No 0 V Vascular Disease No 0 A Age 65-74 No, (83 y.o.) 0 Sc Sex female 1 [id number] Score 5 Score last updated 04/02/20 4:20 PM EDT Click here for a link to the UpToDate guideline Atrial Fibrillation: Anticoagulation therapy to prevent embolization Disclaimer: Risk Score calculation is dependent on accuracy of patient problem list and past encounter diagnosis. In regards to anticoagulation. Ms. Lambert currently has a CHADS2-VASc score of 5/9 with an approximately 6.7% risk of stroke per year. Therefore I agree with her current treatment with Eliquis. I reminded her that although this drug certainly decreased her risk of stroke; as with all anticoagulants, it also increases her risk of bleeding and therefore advised her to watch for signs of blood in her stool, black tarry stools, or blood in her urine and to stop the medication, call you or my officeor go to the nearest ER should this develop as this could be life threatening. Ms. Lambert verbalized understanding. Beta Nereyda: Continue Metoprolol succinate (Toprol XL) 100 mg daily. Anticoagulation: Continue Apixaban (Eliquis) 2.5 mg every 12 hours.. Because of her atrial fibrillation, I also would also recommend that she continue with anticoagulation to decrease her risk of stoke but also reminded her to watch for signs of blood in her stool or black tarry stools and stop themedication immediately if this develops as this could be life threatening. Dysautonomia orthostatic hypotension syndrome: Lightheaded/dizziness daily she has not been eating or drinking much due to her esophagus issue. She is now using a feeding tube for all food and liquids because she can't swallow. She reports she is only getting 45 ml of water 5 times a day. I think that this is far to little for her and told her that I though she needed a minimum of 1000 ml to 1500ml if not more and told her to call her GI doctor to confirm that they only wanted 45 ml 5x/day andthat she was having moderate lightheadedness and dizziness Beta Nereyda: Continue Metoprolol succinate (Toprol XL) 100 mg daily. Continue Florinef to 0.1 mg daily Continue Hydralazine as needed for blood pressure over 180 systolic number if needed it is ok to take to this every four hours if needed. Nonpharmacologic counseling: Because of her condition, I reminded her to try and keep herself well-hydrated and to take extra time when moving from laying to sitting, sitting to standing and standingto walking. I also explained to her to help improve her symptoms she should include 3 g sodium diet, 1 or 2 L of sports drinks daily, knee-high compressions stockings. Chronic Diastolic Heart Failure: Ejection Fraction: >55% on 03/09/2017. Nonpharmacologic management: I also advised her to try and keep his legs up and try and limit salt in her diet. History of DVT (x 5): Anticoagulation: Continue Apixaban (Eliquis) 2.5 mg every 12 hours. I also reminded her to watch for signs of blood in her stool or black tarry stools and stop the medication immediately if this develops as this could be life threatening. Dual Chamber Pacemaker: Indication for Device Placement: Recurrent Syncope with Symptomatic Bradycardia Interrogation Findings: Unremarkable interrogation but we did turn back on CLS to try and reduce the chance her her developing syncope. Essential Hypertension: Controlled Beta Nereyda: Continue Metoprolol succinate (Toprol XL) 100 mg daily. Calcium Channel Nereyda: Not indicated at this time. In the meantime, I encouraged Ms. Lambert to continue to take her other medications and follow up with you as previously scheduled. FOLLOW UP: I told Ms. Lambert to call my office if she had any problems, but otherwise told her to Return in about 4 months (around 07/11/2024). However, I would be happy to see her sooner should the need arise. Sincerely, Toni Moore MD, MS, [facility] Interpretive Program Coordinator [address] [place] [address] , I believe that the risk of significant morbidity and mortality related to the patient's current medical conditions are: 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-high. At least 30 minutes were spent during prep work, discussion and exam of the patient, and follow up documentation and all of their questions were answered. The documentation recorded by the scribe, accurately and completely reflects the services I personally performed and the decisions made by me. Toni Moore MD, MS, F.A.C.C. March 16, 2024 Office Visit on 03/16/2024 Note shared with patient in the original system Received From: [facility] Outside Information Patrick Haynes MD Resident Internal Medicine Discharge Summary Signed Date of Service: 01/19/2024 8:49 PM Note Received: 03/22/2024 9:14 AM Signed Inpatient Discharge Summary BRIEF OVERVIEW Admitting Provider: Drea Brown MD Discharge Provider: No att. 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 History of pulmonary embolism and DVT Discharge Disposition Home Health Code Status at Discharge: Full code Active Issues Requiring Follow-up Issue: Recurrent falls secondary to hypovolemia, dehydration and medications Responsible Individual: PCP What is Needed: Review of medications, evaluation for resuming Sinemet and dose adjustment of Fludrocortisone Follow-up Appointments Arranged: No Issue: Dysphagia Responsible Individual: General Surgery What is Needed: continuing vs removing PEG tube Follow-up Appointments Arranged: No Issue: Hypothyrodism, abnormal CT findings Responsible Individual: PCP What is Needed:monitor TSH, dose adjustment Follow-up Appointments Arranged: No Outpatient Follow-Up Future Appointments Date Time Provider Department Center 06/13/2024 11:00 AM Emma Zabala MD [facility] [employer] 06/23/2024 11:00 AM Rhoda Higgins MD [facility] None Referrals and Follow-ups to Schedule Comprehensive metabolic panel Release to patient via MyChart?: Immediate Magnesium Release to patient via MyChart?: Immediate Phosphorus Release to patient via MyChart?: Immediate Test Results Pending at Discharge DETAILS OF HOSPITAL STAY Presenting Problem/History of Present Illness Leyla Lambert is a 83 y.o. 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 Patient state that she has been having dysphagia problem for time now and she see surgery and she underwent EGD multiple time she feels better after EGD and dilatation but then she continued to have dysphagia not able to eat anything. Patient reports she lost a lot of weight over the last 3 months. Patient also states that she started having increased shortness O breathing with exertion started 2 weeks ago. Patient states that every time she gets up she feels dizzy, lightheaded and out of breathing and sometimes she has fall and she had to fall today and but she deny any loss of consciousness, palpitation or chest pain. Patient reports that she fell over his face today. Patient deny any headache, confusion, photophobia. Patient reports she has not been eating or drinking well and she has decrease in urine output. Patient deny any orthopnea, paroxysmal nocturnal dyspnea, cough or sputum production. In the ED patient is afebrile and hemodynamically stable. Blood work was done and was remarkable for hemoglobin 10.1, potassium 3, creatinine 1.46, calcium 8.2, negative troponin, BNP 150. CT cervical spine was done was negative for acute finding, CT angiogram chest was done and was negative for pulmonary emboli, stable right upper lobe 0.2 cm ground-glass nodule, centrilobular emphysema, no pleural pericardial fluid collections. CT brain was done and was remarkable for thin CSF attenuation extra-axial fluid collection over the posterior left frontal and left parietal lobes. There is no high attenuation to suggest acute extra-axial nor parenchymal hemorrhage. In the ED patient received 500 cc bolus of normal saline, 10 mEq of potassium chloride. Patient wasadmitted to IMS team for further evaluation and management of failure of thrive and acute kidney injury. 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 Higgins . This was complicated by left upper extremity swelling and ecch ymosis due to pseudo aneurysmal in the scan but CTA showed no extravasation that was treated withapplying ASHLEY bandages. Patient was again admitted at 12/19 and discharged at due to sustaining a fall and repeat CT demonstrate multifocal dissection at the level of the right renal artery and patient had impulse control. And during this hospitalization patient CT EGD and dilatation due to dysphagia. Patient was discharged on Eliquis and Plavix. Patient again was admitted at 12/31 due to recurrent fall and shortness O breathing. Workup was negative and and her shortness O breathing was thought to be chronic and her saturation was always above90. PT OT see the patient and recommend sniff placement but patient wanted to be discharged home with home care. Also due to patient continuous complain of dysphagia speech therapy recommended patient to have thin liquid diet and soft/bite sized foods. In initial encounter patient is sitting comfortably in bed saturating well on room air does not look like she is in acute distress. Patient looks dehydrated on exam. Has ecchymosis in her left side of the face and upper neck. Patient states that she did not take her Eliquis the last 2 days and whenshe saw vascular Medicine today she was advised to start decreased dose of 2.5 b.i.d. code status discussed with the patient and she elected full code. Hospital Course Acute kidney injury improved after IV fluids. Creatinine back to baseline. CT brain showed thin CSF attenuation extra-axial fluid collection over the posterior left frontal and left parietal lobes. Neurosurgery evaluated and recommended no acute surgical intervention. Recurrent falls were likely due to dehydration in addition to dysphagia. Orthostatic vitals were positive. We held Sinemet. Her blood pressure was noted to be high, we decrease the dose of fludrocortisone to 0.2 mg once daily. Resumed home medication Norvasc 5 mg. Continued compression stockings while inpatient. She was advised to follow up with PCP for further blood pressure monitoring and adjustment of medications. For chronic dysphagia, general surgery was consulted. PEG tube was placed on 01/16/2024. Tube feeds were started on same day. She tolerated tube feeds very well in addition to oral intake. Patient wished to be on bolus feeds instead of continous tube feeds. Nutrition team advised to keep patient until she has achieved goal nutrition. However, patient expressed wishes to go home. Given she was tolerating oral intake and tube feeds, decision was made to discharge her with further recommendations to get electrolyte check within 1-2 days to check for refeeding syndrome. Education regarding tube feeds was provided. PT/OT evaluated the patient and recommended senior living facility however, patient declined. Shewanted to be discharge home with home health instead. Respecting patient's wishes, she was discharge home with home health with further plan to follow up with PCP, and general surgery. Follow up: *Patient had elevated TSH, levothyroxine was increased from 100 mcg to 112 mcg. Will need TSH in 4-6 weeks *Blood pressure monitoring, adjustment of fludrocortisone dose *For abnormal CT findings, evaluate for repeat CT vs MRI *Follow up with General surgery for continuing vs removing PEG tube Operative Procedures Performed Procedure(s): ESOPHAGOGASTRODUODENOSCOPY INSERTION PEG TUBE 01/16/2024 Consults: Neurosurgery, General surgery, Nutrition Physical Exam at Discharge Discharge Condition: stable Pulse: 62 Resp: 14 BP: 170/64 Temp: 36.7 C (98.1 F) Weight: 44.5 kg (98 lb) Physical Exam Constitutional: Appearance: Normal appearance. She is not ill-appearing. HENT: Mouth/Throat: Mouth: Mucous membranes are moist Eyes: Extraocular Movements: Extraocular movements intact. Pupils: Pupils are equal, round, and reactive to light. Cardiovascular: Rate and Rhythm: Normal rate and regular rhythm. Pulmonary: Effort: Pulmonary effort is normal. Breath sounds: Normal breath sounds. Abdominal: General: Abdomen is flat. Palpations: Abdomen is soft. Musculoskeletal: Cervical back: Normal range of motion. Right lower leg: No edema. Left lower leg: No edema. Skin: Findings: Bruising (Left face from recent fall, left lower extremity) present. Neurological: General: No focal deficit present. Mental Status: She is alert and oriented to person, place, and time. Psychiatric: Mood and Affect: Mood normal. Behavior: Behavior normal. Labs Results from last 7 days Lab Units 01/19/24 0753 01/18/24 0702 01/17/24 0607 WBC X10E9/L 6.0 6.2 8.2 HEMOGLOBIN g/dL 10.9* 9.5* 10.1* HEMATOCRIT % 32.6* 27.6* 29.4* PLATELETS X10E9/L 186 185 205 Results from last 7 days Lab Units 01/14/24 1652 APTT sec 33 INR 1.1 Results from last 7 days Lab Units 01/19/24 0753 01/18/24 0702 01/17/24 2223 01/17/24 1532 01/17/24 0607 SODIUM mmol/L 141 142 -- -- 140 POTASSIUM mmol/L 3.2* 3.6 3.5 3.3* 3.2* CHLORIDE mmol/L 108 111* -- -- 110* CO2 mmol/L 25 24 -- -- 21* BUN mg/dL 9 13 -- -- 16 CREATININE mg/dL 0.65 0.64 -- -- 0.70 CALCIUM mg/dL 8.0* 7.5* -- -- 7.6* PHOSPHORUS mg/dL 2.1* 2.5 -- 2.9 2.3* MAGNESIUM mg/dL 2.0 1.9 -- -- 2.0 Results from last 7 days Lab Units 01/15/24 0133 ALBUMIN g/dL 3.3 TOTAL PROTEIN g/dL 5.6* ALT U/L 5 AST U/L 17 Results from last 7 days Lab Units 01/19/24 0753 01/18/24 0702 01/17/24 0607 GLUCOSE mg/dL 91 101* 105* Lab Results Component Value Date HGBA1C 5.9 (H) 01/11/2016 Results from last 7 days Lab Units 01/15/24 0607 01/14/24 1652 BNP pg/mL 175* 150* Lab Results Component Value Date WBCU 4 01/15/2024 SPECIFICGRA 1.015 12/30/2023 LEUKOCYTE Trace (A) 12/30/2023 NITRITEN Negative 12/30/2023 PHNUR 7.0 12/30/2023 PROTEINNUR Negative 12/30/2023 KETONESNUR Negative 12/30/2023 UROBILINOGEN 1.0 12/30/2023 BLOODHGBNU Trace (A) 12/30/2023 Imaging Fluoroscopy swallow motility function Result Date: 01/15/2024 CLINICAL INFORMATION: Oropharyngeal dysphagia. TECHNIQUE: Lateral videofluoroscopy during oral administration of one or more radiopaque diet consistencies. Reference air kerma: 6.33 mGy 1 cine runs captured. Zero spot images. COMPARISON: Video fluoroscopic swallow study 12/23/2023. FINDINGS: Thin: Penetration. Mildly thick: No aspiration or penetration. Applesauce: No aspiration or penetration. Fruit: No aspiration or penetration. Cracker: No aspiration or penetration. Fluoroscopic runs were not saved due to unknown error. IMPRESSION: * Penetration of thin barium. * No aspiration or penetration mildly thickened barium or foods. * See speech pathology report for dietary recommendations. Approved by Resident: Donnie Bustos DO on 01/15/2024 10:55 AM IBrian MD have personally reviewed the image(s) and agree with and/or edited the report Finalized by Brian Duran MD on 01/15/2024 11:[address] angiogram chest Result Date: 01/14/2024 History: Shortness of breath, dizziness. Recent aortic dissection repair. Evaluate for pulmonary emboli seen. EXAM: CTA chest, multiplanar reformats, thick section MIP volumes. All CT scans at this facility use dose modulation, iterative reconstruction, and/or weight based dosing when appropriate to reduce radiation dose to as low as reasonably achievable. COMPARISON: 12/30/2023 FINDINGS: No acutepulmonary emboli. Aortic endograft unchanged in position. Note that patency cannot be evaluated with pulmonary embolism protocol technique, unopacified aorta. No periaortic fluid collections. No enlarging mediastinal artery lymph nodes. Cardiac pacer. Stable right upper lobe 0.2 cm groundglass nodule. Mild centrilobular emphysema. No pneumothorax. No pleural pericardial fluid collections. IMPRESSION: No acute pulmonary emboli. Finalized by Toni Cantrell MD on 01/14/2024 9:[address] brain without contrast Result Date: 01/14/2024 CLINICAL HISTORY: Blunt head trauma with dizziness. TECHNIQUE: Spiral CT of the brain was performedwithout contrast material. All CT scans at this facility use dose modulation, iterative reconstruction, and/or weight based dosing when appropriate to reduce radiation dose to as low as reasonably achievable. COMPARISONS: 01/04/2021. FINDINGS: There is been interval development of diffuse cortical volume loss with some prominence of the sulci over the convexities, basal cisterns and ventricular system. Superimposed upon this is a CSF attenuation extra-axial fluid collection measuring up to 7 mm.This is located over the posterior left frontal and left parietal lobes. There is no high attenuation to suggest acute hemorrhage. No acute parenchymal hemorrhage. There is no shift of midline. Ventricular system otherwise appears within normal limits. Basal cisterns and fourth ventricle are patent. Calvarium appears intact. IMPRESSION: 1. There is a thin CSF attenuation extra-axial fluid collection over the posterior left frontal and left parietal lobes. There is no high attenuation to suggestacute extra-axial nor parenchymal hemorrhage. Recommend eventual follow-up with MRI brain for further characterization and recommendations. 2. No intracranial mass, parenchymal hemorrhage, nor other a cute intracranial finding. Finalized by Isauro Hernandez MD on 01/14/2024 9:[address] cervical spine without contrast Result Date: 01/14/2024 Procedure: CT CERVICAL SPINE WO CONT History: Neck trauma (Age >= 65y) Comparison June 08, [address] CT performed through the cervical spine in the axial plane with multiplanar reconstructions.Automated exposure control was utilized. Findings: Lungs show centrilobular emphysema There is no prevertebral soft tissue swelling. Diffuse disc disease and facet arthritis There is no fracture, malalignment or destructive lesion. IMPRESSION: * No acute findings. Consider MRI cervical spine and possibly cervical spine flexion- extension radiographs if you suspect occult soft tissue injury and/or ligamentous injury. All CT scans at this facility use dose modulation, iterative reconstruction, and/or weight based dosing when appropriate to reduce radiation dose to as low as reasonably achievable. Finalized by Ted Alexander MD on 01/14/2024 9:23 PM Last Echo Echo limited W/O contrast Result Date: 01/02/2024 Pericardium: There is a gzfhv-dj-vwnnanwn fibrinous circumferential pericardial effusion anterior and posterior to the heart. Left Ventricle: Left ventricle appears normal in size. There is mild concentric increased wall thickness/hypertrophy. Systolic function is normal with an ejection fraction of 55-60%. No obvious regional wall motion abnormalities. Aortic Valve: The aortic valve is trileaflet. The leaflets are mildly calcified. There is mild regurgitation. There is no evidence of aortic valve stenosis. Tricuspid Valve: The tricuspid valve was not well visualized. Mitral Valve: Mitral valve structure is normal. Right Ventricle: A pacer wire is present in the right ventricle. Right Atrium: A pacemaker wire is present in the right atrium. Echo complete W/O contrast Result Date: 11/25/2023 Left Ventricle: Left ventricle appears normal in size. Systolic function is normal with an ejectionfraction of 55-60%. The quantitative EF by [employer] biplane is 61%. Grade I diastolic dysfunction(impaired relaxation) is present. Lateral E' is 5.33 cm/s. Medial E' is 5.77 cm/s. Tricuspid Valve:There is no pulmonary hypertension. Cultures Microbiology Results No results found for the last 168 hours. Medication List START taking these medications Instructions Last Dose Given Next Dose Due fluticasone furoate-vilanteroL 100-25 mcg/dose blister with device Commonly known as: BREO ELLIPTA Inhale 1 puff in the morning. umeclidinium 62.5 mcg/actuation blister with device Commonly known as: INCRUSE ELLIPTA Inhale 1 puff in the morning. CHANGE how you take these medications Instructions Last Dose Given Next Dose Due fludrocortisone 0.1 mg tablet Commonly known as: FLORINEF What changed: how much to take Take 2 tablets (0.2 mg total) by mouth in the morning for 90 days. levothyroxine sodium 112 mcg capsule Commonly known as: TIROSINT What changed: medication strength how much to take Take 1 capsule (112 mcg total) by mouth in the evening for 90 days. Indications: a condition with low thyroid hormone levels. CONTINUE taking these medications Instructions Last Dose Given Next Dose Due amLODIPine 5 mg tablet Commonly known as: NORVASC Take 1 tablet (5 mg total) by mouth in the morning. Indications: high blood pressure. apixaban 5 mg tablet Commonly known as: ELIQUIS Take 0.5 tablets (2.5 mg total) by mouth in the morning and 0.5 tablets (2.5 mg total) before bedtime. atorvastatin 40 mg tablet Commonly known as: LIPITOR Take 1 tablet (40 mg total) by mouth nightly. carbidopa-levodopa 25-100 mg per tablet Commonly known as: SINEMET Take 1 tablet by mouth nightly Indications: restless legs syndrome, an extreme discomfort in the calf muscles when sitting or lying down. celecoxib 200 mg capsule Commonly known as: CeleBREX Take 1 capsule (200 mg total) by mouth in the morning and 1 capsule (200 mg total) before bedtime. Indications: joint damage causing pain and loss of function. clopidogreL 75 mg tablet Commonly known as: PLAVIX Take 1 tablet (75 mg total) by mouth in the morning. Indications: blood clot prevention following percutaneous coronary intervention. metoprolol succinate 100 mg capsule,sprinkle,ER 24hr Take 100 mg by mouth in the morning. montelukast 10 mg tablet Commonly known as: SINGULAIR Take 1 tablet (10 mg total) by mouth nightly. roflumilast 500 mcg tablet Commonly known as: DALIRESP Take 1 tablet (500 mcg total) by mouth in the morning. traZODone 150 mg tablet Commonly known as: DESYREL Take 1 tablet (150 mg total) by mouth once daily at bedtime for 90 days Indications: insomnia associated with depression. TRELEGY ELLIPTA 100-62.5-25 mcg blister with device Generic drug: tiqiuynupuq-suokfftpq-fihmoqeo Inhale 1 puff once daily. STOP taking these medications furosemide 20 mg tablet Commonly known as: LASIX Where to Get Your Medications These medications were sent to [facility] [address] [place] [address] [address] [place] [address] [address] carbidopa-levodopa 25-100 mg per tablet fludrocortisone 0.1 mg tablet fluticasone furoate-vilanteroL 100-25 mcg/dose blister with device levothyroxine sodium 112 mcg capsule traZODone 150 mg tablet umeclidinium 62.5 mcg/actuation blister with device Discharge plan was discussed with Dr. Gautam Art MD Attestation signed by Gautam Art MD at 01/21/24 0900 I have seen and discussed the patient during rounds. I performed and participated in the critical/carvalho portions of the service. I was directly involved in the management and treatment plan of the patient. I reviewed the resident's note and agree with the findings and plan. Discharged home in a stable condition with PEG tube feeds. Refused to go to SNF. Gautam Art MD [facility] Clinical pediatric dental assistant in the Department of Internal Medicine , [facility] Hospital Encounter on 01/14/2024 Note shared with patient in the original system [facility] [employer] [facility] Outside Information Surgery 01/16/2024 Leyla Lambert - 83 y.o. Female; [facility] 1939[facility] 1939[facility] Summary, generated on [email or web address] Reason for Visit Reason for Visit - Reason Comments Shortness of Breath Dizziness Difficulty Swallowing Auth/Cert (Routine) Reason for Visit - Auth/Cert (Routine) Specialty Diagnoses / Procedures Referred By Contact Referred To Contact Diagnoses Shortness of breath Failure to thrive in adult KARLEE (acute kidney injury) ([facility]) Dysphagia, unspecified type Drea Brown MD [address] [place] [address] Reason for Visit - Auth/Cert (Routine) Referral ID Status Reason Start Date Expiration Date Visits Requested Visits Authorized [id number] 1 1 Encounter Details Encounter Details Date Type Department Care Team (Latest Contact Info) Description 01/16/2024 7:30 AM EDT - 01/16/2024 8:26 AM EDT Surgery [facility] - Surgery [address] [place] [address] Bright Guerrier MD [address] [address] ESOPHAGOGASTRODUODENOSCOPY INSERTION PEG TUBE [00470 (CPT )] Surgery Details - documented in this encounter Surgery Details Date/Time Status Location OR Service Patient Class Case Class Case Type Trauma Case? 01/16/24 7:30 AM Posted [facility] OR General Inpatient Elective Surgery Details Panel 1 Procedure LRB Anes Op Region Wound Class Comments ESOPHAGOGASTRODUODENOSCOPY INSERTION PEG TUBE N/A Monitored Anesthesia Care Clean Contaminated Surgery Details Surgeon Surgeon Role Service Panel Bright Guerrier MD Primary General 1 Last Filed Vital Signs - documented in this encounter Last Filed Vital Signs Vital Sign Reading Time Taken Comments Blood Pressure 115/46 01/16/2024 8:20 AM EDT Pulse 60 01/16/2024 8:20 AM EDT Temperature 36.2 C (97.2 F) 01/16/2024 7:58 AM EDT Respiratory Rate 21 01/16/2024 8:20 AM EDT Oxygen Saturation 96% 01/16/2024 8:20 AM EDT Inhaled Oxygen Concentration - - Weight 44.5 kg (98 lb) 01/16/2024 7:29 AM EDT Height 160 cm (5' 3 ) 01/16/2024 7:29 AM EDT Body Mass Index 17.36 01/16/2024 7:29 AM EDT Discharge Summaries - documented in this encounter Patrick Haynes MD - 01/19/2024 8:49 PM EDT Inpatient Discharge Summary BRIEF OVERVIEW Admitting Provider: Drea Brown MD Discharge Provider: No att. 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 History of pulmonary embolism and DVT Discharge Disposition Home Health Code Status at Discharge: Full code Active Issues Requiring Follow-up Issue: Recurrent falls secondary to hypovolemia, dehydration and medications Responsible Individual: PCP What is Needed: Review of medications, evaluation for resuming Sinemet and dose adjustment of Fludrocortisone Follow-up Appointments Arranged: No Issue: Dysphagia Responsible Individual: General Surgery What is Needed: continuing vs removing PEG tube Follow-up Appointments Arranged: No Issue: Hypothyrodism, abnormal CT findings Responsible Individual: PCP What is Needed:monitor TSH, dose adjustment Follow-up Appointments Arranged: No Outpatient Follow-Up Future Appointments Date Time Provider Department Center 06/13/2024 11:00 AM Emma Zabala MD [facility] [employer] 06/23/2024 11:00 AM Rhoda Higgins MD [facility] None Referrals and Follow-ups to Schedule Comprehensive metabolic panel Release to patient via MyChart?: Immediate Magnesium Release to patient via MyChart?: Immediate Phosphorus Release to patient via MyChart?: Immediate Test Results Pending at Discharge DETAILS OF HOSPITAL STAY Presenting Problem/History of Present Illness Leyla Lambert is a 83 y.o. 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 Patient state that she has been having dysphagia problem for time now and she see surgery and she underwent EGD multiple time she feels better after EGD and dilatation but then she continued to have dysphagia not able to eat anything. Patient reports she lost a lot of weight over the last 3 months. Patient also states that she started having increased shortness O breathing with exertion started 2 weeks ago. Patient states that every time she gets up she feels dizzy, lightheaded and out of breathing and sometimes she has fall and she had to fall today and but she deny any loss of consciousness, palpitation or chest pain. Patient reports that she fell over his face today. Patient deny any headache, confusion, photophobia. Patient reports she has not been eating or drinking well and she has decrease in urine output. Patient deny any orthopnea, paroxysmal nocturnal dyspnea, cough or sputum production. In the ED patient is afebrile and hemodynamically stable. Blood work was done and was remarkable for hemoglobin 10.1, potassium 3, creatinine 1.46, calcium 8.2, negative troponin, BNP 150. CT cervical spine was done was negative for acute finding, CT angiogram chest was done and was negative for pulmonary emboli, stable right upper lobe 0.2 cm ground-glass nodule, centrilobular emphysema, no pleural pericardial fluid collections. CT brain was done and was remarkable for thin CSF attenuation extra-axial fluid collection over the posterior left frontal and left parietal lobes. There is no high attenuation to suggest acute extra-axial nor parenchymal hemorrhage. In the ED patient received 500 cc bolus of normal saline, 10 mEq of potassium chloride. Patient wasadmitted to IMS team for further evaluation and management of failure of thrive and acute kidney injury. 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 Higgins . This was complicated by left upper extremity swelling and ecch ymosis due to pseudo aneurysmal in the scan but CTA showed no extravasation that was treated withapplying ASHLEY bandages. Patient was again admitted at 12/19 and discharged at due to sustaining a fall and repeat CT demonstrate multifocal dissection at the level of the right renal artery and patient had impulse control. And during this hospitalization patient CT EGD and dilatation due to dysphagia. Patient was discharged on Eliquis and Plavix. Patient again was admitted at 12/31 due to recurrent fall and shortness O breathing. Workup was negative and and her shortness O breathing was thought to be chronic and her saturation was always above90. PT OT see the patient and recommend sniff placement but patient wanted to be discharged home with home care. Also due to patient continuous complain of dysphagia speech therapy recommended patient to have thin liquid diet and soft/bite sized foods. In initial encounter patient is sitting comfortably in bed saturating well on room air does not look like she is in acute distress. Patient looks dehydrated on exam. Has ecchymosis in her left side of the face and upper neck. Patient states that she did not take her Eliquis the last 2 days and whenshe saw vascular Medicine today she was advised to start decreased dose of 2.5 b.i.d. code status discussed with the patient and she elected full code. Hospital Course Acute kidney injury improved after IV fluids. Creatinine back to baseline. CT brain showed thin CSF attenuation extra-axial fluid collection over the posterior left frontal and left parietal lobes. Neurosurgery evaluated and recommended no acute surgical intervention. Recurrent falls were likely due to dehydration in addition to dysphagia. Orthostatic vitals were positive. We held Sinemet. Her blood pressure was noted to be high, we decrease the dose of fludrocortisone to 0.2 mg once daily. Resumed home medication Norvasc 5 mg. Continued compression stockings while inpatient. She was advised to follow up with PCP for further blood pressure monitoring and adjustment of medications. For chronic dysphagia, general surgery was consulted. PEG tube was placed on 01/16/2024. Tube feeds were started on same day. She tolerated tube feeds very well in addition to oral intake. Patient wished to be on bolus feeds instead of continous tube feeds. Nutrition team advised to keep patient until she has achieved goal nutrition. However, patient expressed wishes to go home. Given she was tolerating oral intake and tube feeds, decision was made to discharge her with further recommendations to get electrolyte check within 1-2 days to check for refeeding syndrome. Education regarding tube feeds was provided. PT/OT evaluated the patient and recommended senior living facility however, patient declined. Shewanted to be discharge home with home health instead. Respecting patient's wishes, she was discharge home with home health with further plan to follow up with PCP, and general surgery. Follow up: *Patient had elevated TSH, levothyroxine was increased from 100 mcg to 112 mcg. Will need TSH in 4-6 weeks *Blood pressure monitoring, adjustment of fludrocortisone dose *For abnormal CT findings, evaluate for repeat CT vs MRI *Follow up with General surgery for continuing vs removing PEG tube Operative Procedures Performed Procedure(s): ESOPHAGOGASTRODUODENOSCOPY INSERTION PEG TUBE 01/16/2024 Consults: Neurosurgery, General surgery, Nutrition Physical Exam at Discharge Discharge Condition: stable Pulse: 62 Resp: 14 BP: 170/64 Temp: 36.7 C (98.1 F) Weight: 44.5 kg (98 lb) Physical Exam Constitutional: Appearance: Normal appearance. She is not ill-appearing. HENT: Mouth/Throat: Mouth: Mucous membranes are moist Eyes: Extraocular Movements: Extraocular movements intact. Pupils: Pupils are equal, round, and reactive to light. Cardiovascular: Rate and Rhythm: Normal rate and regular rhythm. Pulmonary: Effort: Pulmonary effort is normal. Breath sounds: Normal breath sounds. Abdominal: General: Abdomen is flat. Palpations: Abdomen is soft. Musculoskeletal: Cervical back: Normal range of motion. Right lower leg: No edema. Left lower leg: No edema. Skin: Findings: Bruising (Left face from recent fall, left lower extremity) present. Neurological: General: No focal deficit present. Mental Status: She is alert and oriented to person, place, and time. Psychiatric: Mood and Affect: Mood normal. Behavior: Behavior normal. Labs Results from last 7 days Lab Units 01/19/24 0753 01/18/24 0702 01/17/24 0607 WBC X10E9/L 6.0 6.2 8.2 HEMOGLOBIN g/dL 10.9* 9.5* 10.1* HEMATOCRIT % 32.6* 27.6* 29.4* PLATELETS X10E9/L 186 185 205 Results from last 7 days Lab Units 01/14/24 1652 APTT sec 33 INR 1.1 Results from last 7 days Lab Units 01/19/24 0753 01/18/24 0702 01/17/24 2223 01/17/24 1532 01/17/24 0607 SODIUM mmol/L 141 142 -- -- 140 POTASSIUM mmol/L 3.2* 3.6 3.5 3.3* 3.2* CHLORIDE mmol/L 108 111* -- -- 110* CO2 mmol/L 25 24 -- -- 21* BUN mg/dL 9 13 -- -- 16 CREATININE mg/dL 0.65 0.64 -- -- 0.70 CALCIUM mg/dL 8.0* 7.5* -- -- 7.6* PHOSPHORUS mg/dL 2.1* 2.5 -- 2.9 2.3* MAGNESIUM mg/dL 2.0 1.9 -- -- 2.0 Results from last 7 days Lab Units 01/15/24 0133 ALBUMIN g/dL 3.3 TOTAL PROTEIN g/dL 5.6* ALT U/L 5 AST U/L 17 Results from last 7 days Lab Units 01/19/24 0753 01/18/24 0702 01/17/24 0607 GLUCOSE mg/dL 91 101* 105* Lab Results Component Value Date HGBA1C 5.9 (H) 01/11/2016 Results from last 7 days Lab Units 01/15/24 0607 01/14/24 1652 BNP pg/mL 175* 150* Lab Results Component Value Date WBCU 4 01/15/2024 SPECIFICGRA 1.015 12/30/2023 LEUKOCYTE Trace (A) 12/30/2023 NITRITEN Negative 12/30/2023 PHNUR 7.0 12/30/2023 PROTEINNUR Negative 12/30/2023 KETONESNUR Negative 12/30/2023 UROBILINOGEN 1.0 12/30/2023 BLOODHGBNU Trace (A) 12/30/2023 Imaging Fluoroscopy swallow motility function Result Date: 01/15/2024 CLINICAL INFORMATION: Oropharyngeal dysphagia. TECHNIQUE: Lateral videofluoroscopy during oral administration of one or more radiopaque diet consistencies. Reference air kerma: 6.33 mGy 1 cine runs captured. Zero spot images. COMPARISON: Video fluoroscopic swallow study 12/23/2023. FINDINGS: Thin: Penetration. Mildly thick: No aspiration or penetration. Applesauce: No aspiration or penetration. Fruit: No aspiration or penetration. Cracker: No aspiration or penetration. Fluoroscopic runs were not saved due to unknown error. IMPRESSION: * Penetration of thin barium. * No aspiration or penetration mildly thickened barium or foods. * See speech pathology report for dietary recommendations. Approved by Resident: Donnie Bustos DO on 01/15/2024 10:55 AM Brian Bazzi MD have personally reviewed the image(s) and agree with and/or edited the report Finalized by Brian Duran MD on 01/15/2024 11:[address] angiogram chest Result Date: 01/14/2024 History: Shortness of breath, dizziness. Recent aortic dissection repair. Evaluate for pulmonary emboli seen. EXAM: CTA chest, multiplanar reformats, thick section MIP volumes. All CT scans at this facility use dose modulation, iterative reconstruction, and/or weight based dosing when appropriate to reduce radiation dose to as low as reasonably achievable. COMPARISON: 12/30/2023 FINDINGS: No acutepulmonary emboli. Aortic endograft unchanged in position. Note that patency cannot be evaluated with pulmonary embolism protocol technique, unopacified aorta. No periaortic fluid collections. No enlarging mediastinal artery lymph nodes. Cardiac pacer. Stable right upper lobe 0.2 cm groundglass nodule. Mild centrilobular emphysema. No pneumothorax. No pleural pericardial fluid collections. IMPRESSION: No acute pulmonary emboli. Finalized by Toni Cantrell MD on 01/14/2024 9:[address] brain without contrast Result Date: 01/14/2024 CLINICAL HISTORY: Blunt head trauma with dizziness. TECHNIQUE: Spiral CT of the brain was performedwithout contrast material. All CT scans at this facility use dose modulation, iterative reconstruction, and/or weight based dosing when appropriate to reduce radiation dose to as low as reasonably achievable. COMPARISONS: 01/04/2021. FINDINGS: There is been interval development of diffuse cortical volume loss with some prominence of the sulci over the convexities, basal cisterns and ventricular system. Superimposed upon this is a CSF attenuation extra-axial fluid collection measuring up to 7 mm.This is located over the posterior left frontal and left parietal lobes. There is no high attenuation to suggest acute hemorrhage. No acute parenchymal hemorrhage. There is no shift of midline. Ventricular system otherwise appears within normal limits. Basal cisterns and fourth ventricle are patent. Calvarium appears intact. IMPRESSION: 1. There is a thin CSF attenuation extra-axial fluid collection over the posterior left frontal and left parietal lobes. There is no high attenuation to suggestacute extra-axial nor parenchymal hemorrhage. Recommend eventual follow-up with MRI brain for further characterization and recommendations. 2. No intracranial mass, parenchymal hemorrhage, nor other a cute intracranial finding. Finalized by Isauro Hernandez MD on 01/14/2024 9:[address] cervical spine without contrast Result Date: 01/14/2024 Procedure: CT CERVICAL SPINE WO CONT History: Neck trauma (Age >= 65y) Comparison June 08, [address] CT performed through the cervical spine in the axial plane with multiplanar reconstructions.Automated exposure control was utilized. Findings: Lungs show centrilobular emphysema There is no prevertebral soft tissue swelling. Diffuse disc disease and facet arthritis There is no fracture, malalignment or destructive lesion. IMPRESSION: * No acute findings. Consider MRI cervical spine and possibly cervical spine flexion- extension radiographs if you suspect occult soft tissue injury and/or ligamentous injury. All CT scans at this facility use dose modulation, iterative reconstruction, and/or weight based dosing when appropriate to reduce radiation dose to as low as reasonably achievable. Finalized by Ted Alexander MD on 01/14/2024 9:23 PM Last Echo Echo limited W/O contrast Result Date: 01/02/2024 Pericardium: There is a qtldd-fn-jsycnqqs fibrinous circumferential pericardial effusion anterior and posterior to the heart. Left Ventricle: Left ventricle appears normal in size. There is mild concentric increased wall thickness/hypertrophy. Systolic function is normal with an ejection fraction of 55-60%. No obvious regional wall motion abnormalities. Aortic Valve: The aortic valve is trileaflet. The leaflets are mildly calcified. There is mild regurgitation. There is no evidence of aortic valve stenosis. Tricuspid Valve: The tricuspid valve was not well visualized. Mitral Valve: Mitral valve structure is normal. Right Ventricle: A pacer wire is present in the right ventricle. Right Atrium: A pacemaker wire is present in the right atrium. Echo complete W/O contrast Result Date: 11/25/2023 Left Ventricle: Left ventricle appears normal in size. Systolic function is normal with an ejectionfraction of 55-60%. The quantitative EF by [employer] biplane is 61%. Grade I diastolic dysfunction(impaired relaxation) is present. Lateral E' is 5.33 cm/s. Medial E' is 5.77 cm/s. Tricuspid Valve:There is no pulmonary hypertension. Cultures Microbiology Results No results found for the last 168 hours. Medication List START taking these medications Instructions Last Dose Given Next Dose Due fluticasone furoate-vilanteroL 100-25 mcg/dose blister with device Commonly known as: BREO ELLIPTA Inhale 1 puff in the morning. umeclidinium 62.5 mcg/actuation blister with device Commonly known as: INCRUSE ELLIPTA Inhale 1 puff in the morning. CHANGE how you take these medications Instructions Last Dose Given Next Dose Due fludrocortisone 0.1 mg tablet Commonly known as: FLORINEF What changed: how much to take Take 2 tablets (0.2 mg total) by mouth in the morning for 90 days. levothyroxine sodium 112 mcg capsule Commonly known as: TIROSINT What changed: medication strength how much to take Take 1 capsule (112 mcg total) by mouth in the evening for 90 days. Indications: a condition with low thyroid hormone levels. CONTINUE taking these medications Instructions Last Dose Given Next Dose Due amLODIPine 5 mg tablet Commonly known as: NORVASC Take 1 tablet (5 mg total) by mouth in the morning. Indications: high blood pressure. apixaban 5 mg tablet Commonly known as: ELIQUIS Take 0.5 tablets (2.5 mg total) by mouth in the morning and 0.5 tablets (2.5 mg total) before bedtime. atorvastatin 40 mg tablet Commonly known as: LIPITOR Take 1 tablet (40 mg total) by mouth nightly. carbidopa-levodopa 25-100 mg per tablet Commonly known as: SINEMET Take 1 tablet by mouth nightly Indications: restless legs syndrome, an extreme discomfort in the calf muscles when sitting or lying down. celecoxib 200 mg capsule Commonly known as: CeleBREX Take 1 capsule (200 mg total) by mouth in the morning and 1 capsule (200 mg total) before bedtime. Indications: joint damage causing pain and loss of function. clopidogreL 75 mg tablet Commonly known as: PLAVIX Take 1 tablet (75 mg total) by mouth in the morning. Indications: blood clot prevention following percutaneous coronary intervention. metoprolol succinate 100 mg capsule,sprinkle,ER 24hr Take 100 mg by mouth in the morning. montelukast 10 mg tablet Commonly known as: SINGULAIR Take 1 tablet (10 mg total) by mouth nightly. roflumilast 500 mcg tablet Commonly known as: DALIRESP Take 1 tablet (500 mcg total) by mouth in the morning. traZODone 150 mg tablet Commonly known as: DESYREL Take 1 tablet (150 mg total) by mouth once daily at bedtime for 90 days Indications: insomnia associated with depression. TRELEGY ELLIPTA 100-62.5-25 mcg blister with device Generic drug: btnqretjjbt-pgkdyugue-goeyjctl Inhale 1 puff once daily. STOP taking these medications furosemide 20 mg tablet Commonly known as: LASIX Where to Get Your Medications These medications were sent to [facility] [address] [place] [address] [address] [place] [address] [address] carbidopa-levodopa 25-100 mg per tablet fludrocortisone 0.1 mg tablet fluticasone furoate-vilanteroL 100-25 mcg/dose blister with device levothyroxine sodium 112 mcg capsule traZODone 150 mg tablet umeclidinium 62.5 mcg/actuation blister with device Discharge plan was discussed with Dr. Gautam Art MD Associated attestation - Gautam Art MD - 01/21/2024 9:00 AM EDT I have seen and discussed the patient during rounds. I performed and participated in the critical/carvalho portions of the service. I was directly involved in the management and treatment plan of the patient. I reviewed the resident's note and agree with the findings and plan. Discharged home in a stable condition with PEG tube feeds. Refused to go to SNF. Gautam Art MD [facility] Clinical pediatric dental assistant in the Department of Internal Medicine , [facility] Discharge Instructions - documented in this encounter Table of Contents for Discharge Instructions Discharge Instructions Appointments Discharge Instructions Patrick Haynes MD - 01/19/2024 2:21 PM EDT A.) Why You Presented to the Hospital: Difficulty eating, shortness of breath, lightheadedness, and frequent falls B.) Reason You Were Admitted: Your blood pressure was found to be low concerning for hypovolemia, labs revealed kidney injury C.) What We Did In The Hospital: CT brain findings showed abnormal fluid collection in your brain. Neurosurgery evaluated you and recommended no surgical intervention For low blood pressure, you were given IV fluids. We held some of your home medications which couldlead to hypotension and frequent falls For difficulty eating, you underwent PEG tube placement by General surgery. Tube feeds were startedand you tolerated well. You were not on goal tube feeds however you were tolerating oral intake andmedications well. Given you expressed wishes to go home, decision was made to discharge you. You were educated on nutrition and tube feeds. You were given additional tube feeds for home. We made sureyou would be seen by your home health who will also help you with tube feeds at home D.) Medication Changes: Please start taking Breo Ellipta inhaler 1 puff every morning Please start using Incruse Ellipta 1 puff every morning Change how you take fludrocortisone. Please take 0.2 mg ( 2 tablets of 0.1 mg) every day Change how you take levothyroxine. Please take 112 mcg ( 1 tablet) by mouth every day Please hold Sinemet until seen by PCP. This is because you had hypotension and frequent falls and this medication could contribute to your symptoms Please start taking Lasix. This is because you had hypotension and frequent falls and this medication could contribute to your symptoms E.) Labs Needed to Be Drawn Prior to Appointments: CMP in 1 day Magnesium in 1 day Phosphorus in 1 day F.) Listed below are the physicians you need to confirm you have appointments with in order to continue the care we have provided to you in the hospital: Please follow up with PCP within 1 week. Please follow up with General surgery within 1-2 weeks. Please follow up with Pulmonology within 1-2 weeks. G.) Please view all pages of this sheet to ensure you are receiving all your discharge instructions. Some important information from nursing and the hospital is also attached. H.) Please present to the hospital if you have any new chest pain, shortness of breath, fever, chills, headache, palpitations, change in bowel or urinary habits, nausea/vomiting, abdominal pain, swelling in hands or feet, or if you have any other complaints. [facility] Outside Information Office Visit 01/14/2024 [facility] General Surgery Leyla Lambert - 83 y.o. Female; born [birth year][facility] Summary, generated on 2023 Reason for Visit Reason for Visit - Reason Comments Follow-up Swallowing issues Encounter Details Encounter Details Date Type Department Care Team (Latest Contact Info) Description 01/14/2024 2:45 PM EDT Office Visit [facility] General Surgery [address] [place] [address] Bright Guerrier MD [address], [facility] [address] [place] [address] Failure to thrive in adult (Primary Dx); Severe protein-calorie malnutrition (CMS-HCC) Social History - documented as of this encounter Social History Tobacco Use Types Packs/Day Years Used Date Smoking Tobacco: Former Cigarettes 2 1950 - 1979 Smokeless Tobacco: Never Social History Comments: Smoked less in past Social History Alcohol Use Standard Drinks/Week Comments No 0 (1 standard drink = 0.6 oz pure alcohol) Social History [facility] Utilities Answer Date Recorded In the past 12 months has the electric, gas, oil, or water [employer] threatened to shut off services in your home? No 01/15/2024 Social History Social Connection and Isolation Panel [NHANES] Answer Date Recorded In a typical week, how many times do you talk on the phone with family, friends, or neighbors? Morethan three times a week 05/21/2023 Frequency of Social Gatherings with Friends and Family Not on file 05/21/2023 Attends [employer] Services Not on file 05/21/2023 Active Member of Clubs or Organizations Not on file 05/21/2023 Attends Club or Organization Meetings Not on file 05/21/2023 Marital Status Not on file 05/21/2023 Social History AUDIT-C Answer Date Recorded Q1: How often do you have a drink containing alcohol? Never 12/21/2023 Q2: How many drinks containing alcohol do you have on a typical day when you are drinking? Patient does not drink 12/21/2023 Q3: How often do you have six or more drinks on one occasion? Never 12/21/2023 Social History PHQ-2 Answer Date Recorded Total Score 0 12/21/2023 Social History [employer] [place] [employer] - Occupational Stress Questionnaire Answer Date Recorded Do you feel stress - tense, restless, nervous, or anxious, or unable to sleep at night because yourmind is troubled all the time - these days? Not at all 05/21/2023 Social History PRAPARE - Transportation Answer Date Recorded In the past 12 months, has lack of transportation kept you from medical appointments or from getting medications? No 01/15/2024 In the past 12 months, has lack of transportation kept you from meetings, work, or from getting things needed for daily living? No 01/15/2024 Social History Housing Instability Answer Date Recorded Are you worried or concerned that in the next two months you may not have stable housing that you own, rent or stay in as a part of a household? No 01/15/2024 Social History Childcare Answer Date Recorded Childcare Unknown 01/17/2019 Social History Employment Answer Date Recorded Employment Unknown 01/17/2019 Social History Hunger Screening Answer Date Recorded Within the past 12 months we worried whether our food would run out before we got money to buy more. Never True 01/15/2024 Within the past 12 months the food we bought just didn't last and we didn't have money to get more.Never True 01/15/2024 Social History Purpose - Life Answer Date Recorded Purpose and direction in life Unknown 09/27/2020 Social History Sex and Gender Information Value Date Recorded Sex Assigned at Not on file Gender Identity Not on file Sexual Orientation Not on file Social History Job Start Date Occupation Industry Not on file Not on file Not on file Last Filed Vital Signs - documented in this encounter Last Filed Vital Signs Vital Sign Reading Time Taken Comments Blood Pressure - - Pulse - - Temperature - - Respiratory Rate - - Oxygen Saturation - - Inhaled Oxygen Concentration - - Weight 44.5 kg (98 lb) 01/14/2024 2:59 PM EDT Height 160 cm (5' 3 ) 01/14/2024 2:59 PM EDT Body Mass Index 17.36 01/14/2024 2:59 PM EDT Functional Status - documented as of this encounter Not on file Patient Instructions - documented in this encounter Not on file Progress Notes - documented in this encounter Bright Guerrier MD - 01/14/2024 2:45 PM EDT Chief Complaint: s/p robotic Heller myotomy with Toupet fundoplication. Subjective: Leyla Lambert is a 83 y.o. female s/p robotic Heller myotomy with Toupet fundoplication. She is doing well and has no complaints of pain. She has nausea, but no vomiting after meals. She has decreasedappetite which has caused her to have a different diet from usual. She has no constipation/diarrhea. She has been having dysphagia despite foods being softer or hard. She admits to difficulty when swallowing liquids as well. After her first dilation, she states that she felt better for a short period of time. She is having no reflux symptoms. She is having no heartburn or regurgitation. She is using Protonix twice daily without relief. She has a history of achalasia. She notes that sometimes, the food goes down, but she does not have an appetite. She has lost more weight and is down to 98 pounds. She states that she has been weak, dizzy, and is falling. She reports a fall this morning. EGD 06/29/2023 was independently interpreted and demonstrates benign-appearing esophageal stenosis,dilated. She states that there was no improvement with dilation. She presents to me in follow-up. Physical Exam Constitutional: General: She is not in acute distress. Appearance: She is not diaphoretic. HENT: Head: Atraumatic. Right Ear: External ear normal. Left Ear: External ear normal. Nose: Nose normal. Eyes: Pupils: Pupils are equal, round, and reactive to light. Pulmonary: Effort: Pulmonary effort is normal. Abdominal: General: Bowel sounds are normal. There is no distension. Palpations: Abdomen is soft. There is no mass. Tenderness: There is no abdominal tenderness. There is no guarding or rebound. Hernia: No hernia is present. Musculoskeletal: General: Normal range of motion. Cervical back: Normal range of motion. Neurological: Mental Status: She is alert. Psychiatric: Mood and Affect: Mood normal. Behavior: Behavior normal. Assessment: Leyla Lambert is a 83 y.o.female s/p robotic Heller myotomy with Toupet fundoplication. Plan: 1) s/p robotic Heller myotomy with Toupet fundoplication - I discussed with the patient that due to her achalasia, her swallowing will never be normal. - I reviewed and discussed the results of her EGD with dilation in December which showed the esophagus was fairly open. - I recommended that she have a feeding tube placed due to her continued weight loss from lack of appetite and dysphagia. - I offered an EGD with dilation with gastrostomy tube insertion. - I discussed with the patient the risks/benefits/alternatives to the procedure, along with the diet/activity/recovery time post operatively. - I advised the patient to go from here to the emergency room due to her weakness, shortness of breath, dizziness, and falling. She may call with any questions or concerns. Bright Guerrier MD, [facility] General Surgery and Minimally Invasive Surgery Scribe Statement: Scribed for and in the presence of Bright Guerrier MD by Rosa Maria Kearney (scribe). Provider Statement: I, Bright Guerrier MD, personally performed the services described in the documentation as scribed by Rosa Maria Kearney in my presence, and it is both accurate and complete. Electronically signed by Bright Guerrier MD. Rosa Maria Kearney 01/14/24 1516 Plan of Treatment - documented as of this encounter Plan of Treatment - Upcoming Encounters Upcoming Encounters Date Type Department Care Team (Latest Contact Info) Description 04/19/2024 1:00 PM EDT Office Visit [facility] Orthopedics/Trauma and Adult Reconstruction [address] [place] [address] Capri Matthews, FARM FACILITY MANAGER-BIOGEOGRAPHER [address] [facility] [place] [address] 06/13/2024 11:00 AM EDT Office Visit [facility] Pulmonary/Sleep Medicine [address] [place] [address] Emma Zabala MD [address] [facility] [address] [place] [address] 06/23/2024 11:00 AM EST Office Visit [facility] [address] [place] [phone] Rhoda Higgins MD [address], [address] [address] Goals - documented as of this encounter Goals Goal Patient Goal Type Associated Problems Recent Progress Patient-Stated? Author <enter goal here> General Yes Mackenzie Anders, RN Note: Evaluation of progress towards goal: Patient plans for a safe discharge home with resumption of [facility] home care. Procedures - documented in this encounter Not on file Lab Results - documented in this encounter Not on file Visit Diagnoses - documented in this encounter Visit Diagnoses Diagnosis Failure to thrive in adult - Primary Adult failure to thrive Severe protein-calorie malnutrition (CMS-HCC) Other severe protein-calorie malnutrition Administered Medications - documented in this encounter Not on file Additional Health Concerns - documented as of this encounter Additional Health Concerns Assessment Noted Time PHQ-9 Depression Total Score: 0 12/21/2023 10:24 AM EDT Care Teams - documented as of this encounter Care Teams Freight Service Inspector Relationship Specialty Start Date End Date Douglas Will MD [address] [place] [address] PCP - General Family Medicine 05/20/21 Patient Demographics Patient Demographics Patient Address Patient Name Communication [address] (Home) [place] [address] Former (2017 - 2017): [address] (Home) [place] [address] Leyla Lambert Former / Aliases: Leyla [email or web address] Patient Demographics Language Race / Ethnicity Marital Status Venezuelan - Written (Preferred) White / Not or Patient Contacts Patient Contacts Contact Name Contact Address Communication Relationship to Patient Adam Lambert [address] [address] Spouse, Emergency Contact Larisa Lambert Unknown Son, Emergency Contact Document Information Primary Care Provider Other Service Providers Document Coverage Dates Douglas Will MD (2020October 2020 - Present) [address] [place] [address] Family [address] [address] January 132023 Branch Sales Manager Organization [address] [address] Encounter Providers Encounter Date Bright Guerrier MD (Attending) [address] [address] General Surgery January 132023 Legal Authenticator Him, Director [facility] CURRENT MEDICATIONS: No current facility-administered medications for this visit. No current outpatient medications on file. Facility-Administered Medications Ordered in Other Visits Medication Dose Route Frequency Provider Last Rate Last Admin acetaminophen (Tylenol) tablet 650 mg 650 mg oral q4h PRN Jesse Oliva MD Or acetaminophen (Tylenol) oral liquid 650 mg 650 mg oral q4h PRN Jesse Oliva MD Or acetaminophen (Tylenol) suppository 650 mg 650 mg rectal q4h PRN Jesse Oliva MD [Held by provider] apixaban (Eliquis) tablet 2.5 mg 2.5 mg oral BID Jesse Oliva MD 2.5 mg at 03/28/242035 azelastine (Astelin) 137 mcg (0.1 %) nasal spray 2 spray 2 spray Each Nostril BID Jesse Oliva MD calcium carbonate (Tums) chewable tablet 500 mg 500 mg oral BID Jesse Oliva MD 500 mg at 03/29/242024 carbidopa-levodopa (Sinemet) 25-100 mg per tablet 1 tablet 1 tablet oral Nightly Jesse Oliva MD1 tablet at 03/29/242024 [Held by provider] clopidogrel (Plavix) tablet 75 mg 75 mg oral Daily Jesse Oliva MD famotidine (Pepcid) tablet 40 mg 40 mg oral Daily Jesse Oliva MD [Held by provider] fludrocortisone (Florinef) tablet 0.1 mg 0.1 mg oral Daily Jesse Oliva MD fluticasone (Flonase) nasal spray 2 spray 2 spray Each Nostril Daily Jesse Oliva MD tiotropium (Spiriva Respimat) 2.5 mcg/actuation inhaler 2 puff 2 puff inhalation Daily Jesse Oliva MD 2 puff at 03/29/24 0905 And fluticasone furoate-vilanteroL (Breo Ellipta) 100-25 mcg/dose inhaler 1 puff 1 puff inhalation Daily Jesse Oliva MD 1 puff at 03/29/24 0904 furosemide (Lasix) tablet 20 mg 20 mg oral Daily Jesse Oliva MD heparin (porcine) injection 5,000 Units 5,000 Units subcutaneous q8h Sylvain Pimentel DO 5,000 Units at 03/30/24 0531 hydrALAZINE (Apresoline) tablet 25 mg 25 mg oral q8h Jesse Oliva MD 25 mg at 03/30/24 0529 HYDROmorphone (Dilaudid) injection 0.4 mg 0.4 mg intravenous q3h PRN Savanna Avilez MD 0.4 mg at03/29/24 1140 labetaloL (Normodyne,Trandate) injection 10 mg 10 mg intravenous q4h PRN Jesse Oliva MD 10 mg at 03/28/24 2217 lactated Ringer's bolus 500 mL 500 mL intravenous Once Savanna Avilez MD levothyroxine (Synthroid, Levoxyl) tablet 112 mcg 112 mcg oral Daily Jesse Oliva MD 112 mcg at 03/30/24 0619 metoprolol succinate XL (Toprol-XL) 24 hr tablet 100 mg 100 mg oral Daily Jesse Oliva MD 100 mgat 03/28/242034 montelukast (Singulair) tablet 10 mg 10 mg oral Nightly Jesse Oliva MD 10 mg at 03/29/242024 ondansetron ODT (Zofran-ODT) disintegrating tablet 4 mg 4 mg oral q6h PRN Jesse Oliva MD Or ondansetron (Zofran) injection 4 mg 4 mg intravenous q6h PRN Jesse Oliva MD 4 mg at 03/29/24 1140 oxyCODONE (Roxicodone) immediate release tablet 10 mg 10 mg oral q6h PRN Savanna Avilez MD 10 mgat 03/29/242023 oxyCODONE (Roxicodone) immediate release tablet 5 mg 5 mg oral q6h PRN Savanna Avilez MD oxygen (O2) therapy inhalation Continuous PRN - O2/gases Donnie Mcnulty'Brien, DO 2 L/min at 03/29/24 1528 polyethylene glycol (Glycolax, Miralax) packet 17 g 17 g oral Daily Jesse Oliva MD prochlorperazine (Compazine) tablet 10 mg 10 mg oral q6h PRN Donnie Linda Newberry, DO Or prochlorperazine (Compazine) injection 10 mg 10 mg intravenous q6h PRN Donnie Mcnulty'Brien, DO 10 mg at 03/29/24 1352 Or prochlorperazine (Compazine) suppository 25 mg 25 mg rectal q12h PRN Donnie Linda Newberry, DO roflumilast (Daliresp) tablet 500 mcg 500 mcg oral Daily Jesse Oliva MD thiamine (Vitamin B-1) tablet 100 mg 100 mg g-tube Daily Rock Alanis MD traZODone (Desyrel) tablet 150 mg 150 mg oral Nightly Jesse Oliva MD 150 mg at 03/29/242024 PAST MEDICAL HISTORY: Patient Active Problem List Diagnosis Dysphagia Dysphagia, unspecified type PAST SURGICAL HISTORY: Past Surgical History: Procedure Laterality Date OTHER SURGICAL HISTORY 06/20/2020 Mastectomy bilateral OTHER SURGICAL HISTORY 06/20/2020 Hysterectomy OTHER SURGICAL HISTORY 06/20/2020 Heart surgery OTHER SURGICAL HISTORY 03/20/2021 Knee replacement OTHER SURGICAL HISTORY 03/20/2021 Laparoscopic partial colectomy OTHER SURGICAL HISTORY 03/20/2021 Esophagogastroduodenoscopy OTHER SURGICAL HISTORY 03/20/2021 Colonoscopy FAMILY HISTORY: No family history on file. SOCIAL HISTORY: Social History Socioeconomic History Marital status: Spouse name: Not on file Number of children: Not on file Years of education: Not on file Highest education level: Not on file Occupational History Not on file Tobacco Use Smoking status: Never Smokeless tobacco: Never Substance and Sexual Activity Alcohol use: Not on file Drug use: Not on file Sexual activity: Not on file Other Topics Concern Not on file Social History Narrative Not on file Social Determinants of Health Financial Resource Strain: Low Risk (03/28/2024) Overall Financial Resource Strain (CARDIA) Difficulty of Paying Living Expenses: Not very hard Food Insecurity: No Food Insecurity (01/15/2024) [facility] Hun[facility] Within the past 12 months we worried whether our food would run out before we got money to buy more.: Never True Within the past 12 months the food we bought just didn't last and we didn't have money to get more.: Never True Transportation Needs: No Transportation Needs (03/28/2024) PRAPARE - Transportation Lack of Transportation (Medical): No Lack of Transportation (Non-Medical): No Physical Activity: Not on file Stress: No Stress Concern Present (05/21/2023) Received from [employer] [place] [facility] - Occupational Stress Questionnaire Feeling of Stress : Not at all Social Connections: Unknown (05/21/2023) [facility] Social Connection and Isolation Panel [NHANES] Frequency of Communication with Friends and Family: More than three times a week Frequency of Social Gatherings with Friends and Family: Not on file Attends Quaker Services: Not on file Active Member of Clubs or Organizations: Not on file Attends Club or Organization Meetings: Not on file Marital Status: Not on file Intimate Partner Violence: Unknown (10/08/2023) Received from [facility] [place] Safety & Environment Fear of Current or Ex-Partner: Not on file Emotionally Abused: Not on file Physically Abused: Not on file Sexually Abused: Not on file Physically or Sexually Abused: Not on file Housing Stability: Low Risk (03/28/2024) Housing Stability Vital Sign Unable to Pay for Housing in the Last Year: No Number of Times Moved in the Last Year: 1 Homeless in the Last Year: No ALLERGIES: Allergies Allergen Reactions Holiday Itching, Other, Unknown and Rash Other reaction(s): Welts welts Droxidopa Shortness of breath Latex Itching, Other and Rash Patient states allergic to Latex Patient states allergic to Latex Other reaction(s): Welts Patient states allergic to Latex Nickel Hives, Itching, Other and Rash Other reaction(s): Welts Acetaminophen-Codeine Unknown, GI intolerance, GI Upset, Nausea Only and Other Other reaction(s): Abdominal Pain Codeine GI intolerance, Unknown, Nausea Only and Other Other reaction(s): nausea, severe Acetaminophen-codeine Other reaction(s): nausea, severe Acetaminophen-codeine Other reaction(s): nausea, severe Other reaction(s): Abdominal Pain Levonorgestrel-Ethinyl Estrad Cough, Itching and Runny nose Other Other Annotation - 04Oct2018: Nickel, Holiday, Gold Compounding Gold Au 198 Unknown, Itching, Other and Rash Other reaction(s): Welts itching Gold Keratinate Unknown, Itching, Other and Rash itching Holiday Nickel welts Other reaction(s): Welts Other reaction(s): Intolerance itching Gold Sodium Thiomalate (Bulk) Itching, Other and Rash Other reaction(s): Welts REVIEW OF SYSTEMS: CONSTITUTIONAL: Patient denies fevers, chills, sweats and weight changes. EYES: Patient denies any visual symptoms. EARS, NOSE, AND THROAT: No difficulties with hearing. No symptoms of rhinitis or sore throat. CARDIOVASCULAR: Patient denies chest pains, palpitations, orthopnea and paroxysmal nocturnal dyspnea. RESPIRATORY: No dyspnea on exertion, no wheezing or cough. GI: No nausea, vomiting, diarrhea, constipation, abdominal pain, hematochezia or melena. : No urinary hesitancy or dribbling. No nocturia or urinary frequency. No abnormal urethral discharge. MUSCULOSKELETAL: No myalgias or arthralgias. NEUROLOGIC: No chronic headaches, no seizures. Patient denies numbness, tingling or weakness. PSYCHIATRIC: Patient denies problems with mood disturbance. No problems with anxiety. ENDOCRINE: No excessive urination or excessive thirst. DERMATOLOGIC: Patient denies any rashes or skin changes. PHYSICAL EXAM: Visit Vitals BP 168/72 Pulse 64 PHYSICAL EXAMINATION: GENERAL: No apparent distress. Pt is alert and oriented x3. VITAL SIGNS: HR, BP, Temp; Normal HEENT: Head is normocephalic and atraumatic. Extraocular muscles are intact. Pupils are equal, round, and reactive to light and accommodation. Nares appeared normal. Mouth is well hydrated and without lesions. Mucous membranes are moist. Posterior pharynx clear of any exudate or lesions. NECK: Supple. No carotid bruits. No lymphadenopathy or thyromegaly. LUNGS: Clear to auscultation. HEART: Regular rate and rhythm without murmur. ABDOMEN: Soft, appropriately mildly tender to palpation, and nondistended. Positive bowel sounds. No hepatosplenomegaly was noted. Incisions CDI. EXTREMITIES: Without any cyanosis, clubbing, rash, lesions or edema. NEUROLOGIC: Cranial nerves II through XII are grossly intact. PSYCHIATRIC: Flat affect, but denies suicidal or homicidal ideations. SKIN: No ulceration or induration present. IMPRESSION: Leyla Lambert IS A 83 y.o. female with 80 yo female being sent to be evaluated for LPR. she has beentreated for fungal esophagitis and with this . She also was noted to have some abnormalities on hermodified barium swallow. EMOT shows a high pressure area between the les and hiatus. The esophagramis normal. EGD shows a hiatal hernia. She also has an infection in her knee that is being treated for abs. I suspect the biggest issue is poor clearance from the hiatal hernia and we see the high pressure between the LES and the hiatus. It seems from the HH she has poor clearance but minimal reflux. We discussed fixing the hiatal hernia to improve the clearance and get rid of the high pressure zone. She also notes excess saliva when she eats. this all speaks to poor clearance. We discussed thisat length. All qeusitons were answered. She has a knee infection that needs to be cleared first. She is seeing the orthopod tomorrow. She is having trouble eating. hopefully we can proceed in February. 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 That was when I last saw her in 2020. 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 The patient did not have any resolution of symptoms and was dilated several months later. She then had a thoracic aortic dissection that was managed by vascular with a TEVAR. During our visit today the patient states that she is very dizzy. Her blood pressure is high. She notes that she does not use any of her tube feeds despite having a G-tube because it gives her severe diarrhea. The patient does not know the formula she can. She also notes that when she spits up a lot of the problem is foamy. In my discussions with herit is unclear whether her symptoms are at the UES or at the lower esophagus. She has had multiple esophagram's at outside hospitals and we will try to get them transferred into our system. I also like to get a modified barium swallow for further evaluation. I had extensive discussion with her and her as I was very concerned about them driving 3 hours home. I also am not able to get her onmy schedule electively for a couple of weeks for an endoscopy and possible dilation. The patient notes that the dilations in the past have not helped. She reportedly did not have a hiatal hernia repair at the time of her robotic myotomy and will try to get the operative report. 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 We will look for this more when I do herendoscopy. I also discussed with her and her that in her current state I am concerned abouther going home and that possibly we should bring her in through the emergency room for further evalu ation as her blood pressure is high, she is dizzy, and she is not able to get any nutrition and despite having a gastrostomy tube. She and her are going to decide whether they want to come tothe emergency room or be admitted. PLAN: Get nutrition 4-5 times/day. Try metamucil for the diarrhea. Just take twice/day. See if helps. Try putting chin to chest when drinking. I would like to put down a camera, possible botox and dilation. You will need to stop blood thinners for this. Try some saltine crackers when you get the foam. Stay upright after meals. We will get a modified barium swallow. Get the esophagram pushed over in pacs from ailyn Julio M.D., MPH Director of Bariatric & Minimally Invasive Surgery [place] [address] T: [phone] F: [phone] Rupinder Liriano, RN Internal Combustion Engine Assembler Nurse Used Car Make Ready Worker, Clinical Trainer - Bariatric/General Surgery [facility] Patient Nursing Contact T: [phone] F: [phone] documented in this encounterAs[facility] Work Phone: 1(188) 156-340808-12-2024 Instructions* Patient Instructions* Nolan Julio MD MPH - 03/28/2024 10:30 AM EDT PLAN: Get nuterition 4-5 times/day. Try metamucil for the diarrhea. Just take twice/day. See if helps. Try putting chin to chest when drinking. I would like to put down a camera, possible botox and dilation. You will need to stop blood thinners for this. Try some saltine crackers when you get the foam. Stay upright after meals. We will get a modified barium swallow. Get the esophagram pushed over in pacs from [facility] Try more yogurts/day Dr. Nolan Julio M.D., MPH Director of Bariatric & Minimally Invasive Surgery [place] [address] T: [phone] F: [phone] Rupinder Liriano, RN Internal Combustion Engine Assembler Nurse Used Car Make Ready Worker, Clinical Trainer - Bariatric/General Surgery [facility] Patient Nursing Contact T: [phone] F: [phone] documented in this encounterAshtabula General Hospital Work Phone: 1(153) 359-922712-02-2023 NoteHNO ID: [id number] Author: Note, Interface Service: ? Author Type: ? Type: Progress Notes Filed: 07/18/2023 5:55 AM Note Text: Epic Scheduled Downtime: 07/18/2023 1:00:00 AM to 07/18/2023 5:38:00 [facility]11-03-2023 Hospital Discharge instructions Patient Education 06/19/2023 13:58:30 Kegel Exercises Kegel Exercises Kegel exercises can help strengthen your pelvic floor muscles. The pelvic floor is a group of muscles that support your rectum, small intestine, and bladder. In females, pelvic floor muscles also help support the uterus. These muscles help you control the flow of urine and stool (feces). Kegel exercises are painless and simple. They do not require any equipment. Your provider may suggest Kegel exercises to: Improve bladder and bowel control. Improve sexual response. Improve weak pelvic floor muscles after surgery to remove the uterus (hysterectomy) or after , in females. Improve weak pelvic floor muscles after prostate gland removal or surgery, in males. Kegel exercises involve squeezing your pelvic floor muscles. These are the same muscles you squeezewhen you try to stop the flow of urine or keep from passing gas. The exercises can be done while sitting, standing, or lying down, but it is best to vary your position. Ask your health care provider which exercises are safe for you. Do exercises exactly as told by your health care provider and adjust them as directed. Do not begin these exercises until told by your health care provider. Exercises How to do Kegel exercises: 1.Squeeze your pelvic floor muscles tight. You should feel a tight lift in your rectal area. If youare a female, you should also feel a tightness in your vaginal area. Keep your stomach, buttocks, and legs relaxed. 2.Hold the muscles tight for up to 10 seconds. 3.Breathe normally. 4.Relax your muscles for up to 10 seconds. 5.Repeat as told by your health care provider. Repeat this exercise daily as told by your health care provider. Continue to do this exercise for at least 4 6 weeks, or for as long as told by your health care provider. You may be referred to a physical therapist who can help you learn more about how to do Kegel exercises. Depending on your condition, your health care provider may recommend: Varying how long you squeeze your muscles. Doing several sets of exercises every day. Doing exercises for several weeks. Making Kegel exercises a part of your regular exercise routine. This information is not intended to replace advice given to you by your health care provider. Make sure you discuss any questions you have with your health care provider. Document Revised: 12/12/2021 Document Reviewed: 12/12/2021 Elsevier Patient Education 2022 [employer]. Follow Up Care 03/04/2023 15:29:29 With:Regino CLARK, MIKKI Chris, URO Address: When:Within 8 Month(s) [facility] Joann 10-26-2023 Evaluation note* Encounter Date Diagnosis Assessment Notes Treatment Notes Treatment Clinical Notes May, Acute non-recurrent maxillary sinusitis (ICD-10 - J01.00) Will tx tody for bacterial sinusitis based on physical exam and duration of symptoms. Take antibiotic as prescribed, complete entire course of therapy even if symptoms resolve. Supportive care as directed, push fluids and rest, Tylenol/Motrin as directed for aches/fever, warm moist compress over sinuses several times a day, cool mist humidifier, nasal saline spray as directed. Symptoms should improve in the next 3 days, if symptoms persist follow up with PCP. Immediate eval for warning s/sx as discussed. Patient verbalizes understanding and is agreeable to treatment plan. [employer] Other 09-14-2023 History of Present illness Narrative* Henna Bravo, [facility] - 04/30/2023 2:40 PM EDT [facility] Medication Management ANTICOAGULATION Referring Provider: Dr Moore GOAL INR: 2.0-3.0 TODAY'S INR: 2.4 WARFARIN Dosage: continue 5mg daily INR (no units) Date Value 04/30/2023 2.4 04/22/2023 3.3 04/07/2023 2.5 03/31/2023 3.9 03/09/2023 1.6 02/10/2023 2.1 02/03/2023 1.8 Hemoglobin Date Value Ref Range Status 04/07/2023 12.1 11.9 - 15.1 g/dL Final Hematocrit Date Value Ref Range Status 04/07/2023 38.3 36.3 - 47.1 % Final ALT Date Value Ref Range Status 04/02/2022 15 5 - 33 U/L Final AST Date Value Ref Range Status 04/02/2022 22 <32 U/L Final Medication changes: No change Notes: Fingerstick INR drawn per clinic protocol. Patient states no visible blood in urine and no black tarry stool. Denies any missed doses of warfarin. No change in other maintenance medications jessica diet. Will recheck INR in 2 weeks. Patient continues to have bleeding from wound that she was seen in [facility] ED on 04/19 and [place] ED on 04/22. Patient is having daily dressing changes at Dr Will's office and is seeing the [facility] in [place] for initial visit tomorrow. Patient has had a few other little spots that have bled but nothing like my leg . Patient saw Dr Bright Guerrier, general surgery, for her swallowing issues and is scheduled to have a procedure on 05/20/23. [facility] I have contacted Dr Guerrier's office at [phone] for his preference on warfarin pre and post procedure and am awaiting a return call. Patient does not require Lovenox bridging. Patient and spouse still plan to leave for [place] for the winter after . Will continue warfarin 5mg daily for 2 weeks. Patient acknowledges working in consult agreement with pharmacist as referred by his/her physician. For Pharmacy Admin Tracking Only Intervention Detail: Adherence Monitorin Total # of Interventions Recommended: 2 Total # of Interventions Accepted: 2 Time Spent (min): 50 Henna Bravo R.Ph., 04/30/2023,3:08 PM documented in [facility] Discharge instructions* Patient Instructions* Henna Bravo RPH - 04/30/2023 2:40 PM EDT Continue to take warfarin 5mg (1 tablet) every day. Continue to monitor urine and stool for signs and symptoms of bleeding. Please notify the clinic of any medication changes. Please remember to bring all medications (both prescription and OTC) to your next visit. Kindly notify the clinic if you are unable to make to your next appointment. Continue current dose of warfarin as instructed on dosing calendar provided. documented in [facility] [place] History of Present illness Narrative* Nighat Bazzi RPH - 02/10/2023 10:00 AM EDT [facility] Medication Management ANTICOAGULATION Referring Provider: Dr. Moore GOAL INR: 2-3 TODAY'S INR: 2.1 WARFARIN Dosage: Continue warfarin to 7.5 mg po every Thursday and Thursday; 5 mg po all other days INR (no units) Date Value 02/10/2023 2.1 02/03/2023 1.8 01/19/2023 3.4 01/06/2023 2.6 12/23/2022 1.9 12/08/2022 1.7 11/24/2022 2.2 Hemoglobin Date Value Ref Range Status 05/19/2022 10.2 (L) 11.9 - 15.1 g/dL Final Hematocrit Date Value Ref Range Status 05/19/2022 31.6 (L) 36.3 - 47.1 % Final ALT Date Value Ref Range Status 04/02/2022 15 5 - 33 U/L Final AST Date Value Ref Range Status 04/02/2022 22 <32 U/L Final Medication changes: Tetanus shot in ED 02/10/23 Notes: Fingerstick INR drawn per clinic protocol. Patient states no visible blood in urine and no black tarry stool. Denies any missed doses of warfarin. No change in other maintenance medications jessica diet. Will recheck INR in 2 weeks. Patient acknowledges working in consult agreement with pharmacist as referred by his/her physician. Patient was seen in ED today for bleeding left leg that she could not stop at home. INR was not drawn at ED visit. Patient called clinic with request for same day INR. INR is therapeutic at 2.1 today. Patient is having a lymph node biopsy on 02/24/23. Patient is to hold warfarin starting 02/20/23 per surgeon. Patient will not bridge with Lovenox. Patient will resume warfarin evening of procedure unless instructed by provider to hold. For Pharmacy Admin Tracking Only Intervention Detail: Adherence Monitorin Total # of Interventions Recommended: 1 Total # of Interventions Accepted: 1 Time Spent (min): 20 Nighat Bazzi RPH documented in this encounterS[facility] Hospital Discharge instructions* Patient Instructions* Nighat Bazzi RP - 02/10/2023 10:00 AM EDT Continue current dose of warfarin as instructed on dosing calendar provided. Continue to monitor urine and stool for signs and symptoms of bleeding. Please notify the clinic of any medication changes. Please remember to bring all medications (both prescription and OTC) to your next visit. Kindly notify the clinic if you are unable to make to your next appointment. documented in this encounterS[facility] [place] Hospital Discharge instructions* Discharge Instructions* Daniel Araiza MD - 02/10/2023 9:30 AM EDT Continue taking your medications as prescribed. Follow-up with your family doctor next 3 days for reevaluation of your symptoms. Return if you develop any new or worsening symptoms. Your tetanus was updated today. * Attachments The following attachments cannot be sent through Care Everywhere. * Skin Tears ([place]) documented in this encounterS[facility] [place] History of Present illness Narrative* Nighat Bazzi [facility] - 02/03/2023 10:40 AM EDT [facility] Medication Management ANTICOAGULATION Referring Provider: Dr. Moore GOAL INR: 2-3 TODAY'S INR: 1.8 WARFARIN Dosage: 7.5 mg po for 1 dose, then increase warfarin to 7.5 mg po every Thursday and Thursday;5 mg po all other days INR (no units) Date Value 02/03/2023 1.8 01/19/2023 3.4 01/06/2023 2.6 12/23/2022 1.9 12/08/2022 1.7 11/24/2022 2.2 06/30/2022 1.5 Hemoglobin Date Value Ref Range Status 05/19/2022 10.2 (L) 11.9 - 15.1 g/dL Final Hematocrit Date Value Ref Range Status 05/19/2022 31.6 (L) 36.3 - 47.1 % Final ALT Date Value Ref Range Status 04/02/2022 15 5 - 33 U/L Final AST Date Value Ref Range Status 04/02/2022 22 <32 U/L Final Medication changes: No changes Notes: Fingerstick INR drawn per clinic protocol. Patient states no visible blood in urine and no black tarry stool. Denies any missed doses of warfarin. No change in other maintenance medications jessica diet. Will recheck INR in 2 weeks. Patient acknowledges working in consult agreement with pharmacist as referred by his/her physician. Patient reports that she is scheduled for esophageal manometry test on 02/09/23 and she does not have to hold warfarin prior to procedure. For Pharmacy Admin Tracking Only Intervention Detail: Adherence Monitorin and Dose Adjustment: 2, reason: Therapy Optimization Total # of Interventions Recommended: 3 Total # of Interventions Accepted: 3 Time Spent (min): 30 Nighat Bazzi RPH documented in this encounterS[facility] [place] Hospital Discharge instructions* Patient Instructions* Nighat Bazzi RPH - 02/03/2023 10:40 AM EDT Please take warfarin 7.5 mg today. Increase current dose of warfarin as instructed on dosing calendar provided. Continue to monitor urine and stool for signs and symptoms of bleeding. Please notify the clinic of any medication changes. Please remember to bring all medications (both prescription and OTC) to your next visit. Kindly notify the clinic if you are unable to make to your next appointment. documented in this encounterS[facility] [place] Hospital Discharge instructions Patient Education 02/02/2023 15:21:53 Overactive Bladder, Adult Overactive Bladder, Adult Overactive bladder is a condition in which a person has a sudden and frequent need to urinate. A person might also leak urine if he or she cannot get to the bathroom fast enough (urinary incontinence). Sometimes, symptoms can interfere with work or social activities. What are the causes? Overactive bladder is associated with poor nerve signals between your bladder and your brain. Your bladder may get the signal to empty before it is full. You may also have very sensitive muscles thatmake your bladder squeeze too soon. This condition may also be caused by other factors, such as: Medical conditions: ?Urinary tract infection. ?Infection of nearby tissues. ?Prostate enlargement. ?Bladder stones, inflammation, or tumors. ?Diabetes. ?Muscle or nerve weakness, especially from these conditions: ?A spinal cord injury. ?Stroke. ?Multiple sclerosis. ?Parkinson's disease. Other causes: ?Surgery on the uterus or urethra. ?Drinking too much caffeine or alcohol. ?Certain medicines, especially those that eliminate extra fluid in the body (diuretics). ?Constipation. What increases the risk? You may be at greater risk for overactive bladder if you: Are an older adult. Smoke. Are going through menopause. Have prostate problems. Have a neurological disease, such as stroke, dementia, Parkinson's disease, or multiple sclerosis (MS). Eat or drink alcohol, spicy food, caffeine, and other things that irritate the bladder. Are overweight or obese. What are the signs or symptoms? Symptoms of this condition include a sudden, strong urge to urinate. Other symptoms include: Leaking urine. Urinating 8 or more times a day. Waking up to urinate 2 or more times overnight. How is this diagnosed? This condition may be diagnosed based on: Your symptoms and medical history. A physical exam. Blood or urine tests to check for possible causes, such as infection. You may also need to see a health care provider who specializes in urinary tract problems. This is called a urologist. How is this treated? Treatment for overactive bladder depends on the cause of your condition and whether it is mild or severe. Treatment may include: Bladder training, such as: ?Learning to control the urge to urinate by following a schedule to urinate at regular intervals. ?Doing Kegel exercises to strengthen the pelvic floor muscles that support your bladder. Special devices, such as: ?Biofeedback. This uses sensors to help you become aware of your body's signals. ?Electrical stimulation. This uses electrodes placed inside the body (implanted) or outside the body. These electrodes send gentle pulses of electricity to strengthen the nerves or muscles that control the bladder. ?Women may use a plastic device, called a pessary, that fits into the vagina and supports the bladder. Medicines, such as: ?Antibiotics to treat bladder infection. ?Antispasmodics to stop the bladder from releasing urine at the wrong time. ?Tricyclic antidepressants to relax bladder muscles. ?Injections of botulinum toxin type A directly into the bladder tissue to relax bladder muscles. Surgery, such as: ?A device may be implanted to help manage the nerve signals that control urination. ?An electrode may be implanted to stimulate electrical signals in the bladder. ?A procedure may be done to change the shape of the bladder. This is done only in very severe cases. Follow these instructions at home: Eating and drinking Make diet or lifestyle changes recommended by your health care provider. These may include: ?Drinking fluids throughout the day and not only with meals. ?Cutting down on caffeine or alcohol. ?Eating a healthy and balanced diet to prevent constipation. This may include: ?Choosing foods that are high in fiber, such as beans, whole grains, and fresh fruits and vegetables. ?Limiting foods that are high in fat and processed sugars, such as fried and sweet foods. Lifestyle Lose weight if needed. Do not use any products that contain nicotine or tobacco. These include cigarettes, chewing tobacco, and vaping devices, such as e-cigarettes. If you need help quitting, ask your health care provider. General instructions Take zasy-spw-hybkaig and prescription medicines only as told by your health care provider. If you were prescribed an antibiotic medicine, take it as told by your health care provider. Do notstop taking the antibiotic even if you start to feel better. Use any implants or pessary as told by your health care provider. If needed, wear pads to absorb urine leakage. Keep a log to track how much and when you drink, and when you need to urinate. This will help your health care provider monitor your condition. Keep all follow-up visits. This is important. Contact a health care provider if: You have a fever or chills. Your symptoms do not get better with treatment. Your pain and discomfort get worse. You have more frequent urges to urinate. Get help right away if: You are not able to control your bladder. Summary Overactive bladder refers to a condition in which a person has a sudden and frequent need to urinate. Several conditions may lead to an overactive bladder. Treatment for overactive bladder depends on the cause and severity of your condition. Making lifestyle changes, doing Kegel exercises, keeping a log, and taking medicines can help with this condition. This information is not intended to replace advice given to you by your health care provider. Make sure you discuss any questions you have with your health care provider. Document Revised: 04/22/2021 Document Reviewed: 04/22/2021 [employer] Patient Education 2022 [employer]. Follow Up Care 12/01/2022 15:18:18 With:KATHE CLARK, Isauro More, URL Address: [address] [place], [place] [id number]- When: only if needed [facility] 06-05-2023 History of Present illness Narrative* Nighat Bazzi, [facility] - 01/19/2023 10:40 AM EDT [facility] Medication Management ANTICOAGULATION Referring Provider: Dr. Moore GOAL INR: 2-3 TODAY'S INR: 3.4 WARFARIN Dosage: Hold warfarin for 1 dose today, then decrease warfarin to 7.5 mg po every Thursday; 5 mg po all other days INR (no units) Date Value 01/19/2023 3.4 01/06/2023 2.6 12/23/2022 1.9 12/08/2022 1.7 11/24/2022 2.2 06/30/2022 1.5 06/25/2022 1.1 Hemoglobin Date Value Ref Range Status 05/19/2022 10.2 (L) 11.9 - 15.1 g/dL Final Hematocrit Date Value Ref Range Status 05/19/2022 31.6 (L) 36.3 - 47.1 % Final ALT Date Value Ref Range Status 04/02/2022 15 5 - 33 U/L Final AST Date Value Ref Range Status 04/02/2022 22 <32 U/L Final Medication changes: Increase amlodipine Increase nebivolol Notes: Fingerstick INR drawn per clinic protocol. Patient states no visible blood in urine and no black tarry stool. Denies any missed doses of warfarin. No change in other maintenance medications jessica diet. Will recheck INR in 2 weeks. Patient acknowledges working in consult agreement with pharmacist as referred by his/her physician. For Pharmacy Admin Tracking Only Intervention Detail: Dose Adjustment: 2, reason: Therapy Optimization Total # of Interventions Recommended: 2 Total # of Interventions Accepted: 2 Time Spent (min): 20 Nighat Bazzi [facility] documented in this encounterS[facility] Work Phone: [phone]) [phone] Hospital Discharge instructions* Patient Instructions* Nighat Bazzi [facility] - 01/19/2023 10:40 AM EDT Hold warfarin today. Decrease current dose of warfarin as instructed on dosing calendar provided. Continue to monitor urine and stool for signs and symptoms of bleeding. Please notify the clinic of any medication changes. Please remember to bring all medications (both prescription and OTC) to your next visit. Kindly notify the clinic if you are unable to make to your next appointment. documented in this encounterS[facility] Work Phone: [phone]) 688-424905-09-2023 History of Present illness Narrative* Henna Bravo, [facility] - 12/23/2022 10:00 AM EDT [facility] Medication Management ANTICOAGULATION Referring Provider: Dr Moore GOAL INR: 2.0-3.0 TODAY'S INR: 1.9 WARFARIN Dosage: increase to 7.5mg MF, 5mg all other days (6%) INR (no units) Date Value 12/23/2022 1.9 12/08/2022 1.7 11/24/2022 2.2 06/30/2022 1.5 06/25/2022 1.1 06/17/2022 1.2 06/12/2022 1.3 Hemoglobin Date Value Ref Range Status 05/19/2022 10.2 (L) 11.9 - 15.1 g/dL Final Hematocrit Date Value Ref Range Status 05/19/2022 31.6 (L) 36.3 - 47.1 % Final ALT Date Value Ref Range Status 04/02/2022 15 5 - 33 U/L Final AST Date Value Ref Range Status 04/02/2022 22 <32 U/L Final Medication changes: No change Notes: Fingerstick INR drawn per clinic protocol. Patient states no visible blood in urine and no black tarry stool. Denies any missed doses of warfarin. No change in other maintenance medications jessica diet. Will recheck INR in 2 weeks. Patient declines weight check today. Patient states she is swallowing a bit better sometimes but just got water stuck while waiting to see you . Patient is scheduled to see Dr Juan Carlos Medellin, gastroenterology, for initial visit on 01/13/23 in [place]. Patient states she was seen recently by her orthopedic at [facility] and her knee is the best it has been in years . Will slightly increase weekly dosing as above. Patient acknowledges working in consult agreement with pharmacist as referred by his/her physician. For Pharmacy Admin Tracking Only Intervention Detail: Adherence Monitorin and Dose Adjustment: 1, reason: Therapy Optimization Total # of Interventions Recommended: 3 Total # of Interventions Accepted: 3 Time Spent (min): 25 Henna Bravo R.Ph., 12/23/2022,12:22 PM documented in this encounterBON [email or web address] Phone: [phone]) 650-575105-09-2023 Hospital Discharge instructions* Patient Instructions* Henna Bravo RPH - 12/23/2022 10:00 AM EDT Please increase your dosing to take warfarin 7.5mg (1 1/2 tablets) on Thursday and Thursday and 5mg (1 tablet) all other days. Continue to monitor urine and stool for signs and symptoms of bleeding. Please notify the clinic of any medication changes. Please remember to bring all medications (both prescription and OTC) to your next visit. Kindly notify the clinic if you are unable to make to your next appointment. Continue current dose of warfarin as instructed on dosing calendar provided. documented in this encounterB[facility] [employer] Work Phone: 1(439) 876-435804-26-2023 NoteHNO ID: [id number] Author: Nguyễn Jean MD Service: ? Author Type: Physician Type: Progress Notes Filed: 12/10/2022 12:32 PM Note Text: Leyla returns today for follow-up of her right knee. Her most recent surgery was a poly swap back in April 2022. She is actually been doing much better over the past 6 months. She did stop taking doxycycline 2 months ago due to GI upset. Still, since stopping that her symptoms have not changed. She is currently happy with her right knee. At the time of surgery no growth was shown on cultures. Exam of her knee reveals no erythema or excessive warmth. Mild appropriate effusion. She has a constrained implant but it is stable throughout all range of motion. X-rays today are unchanged, she has a well fixed right constrained knee replacement. No fractures or any sign of loosening. She is doing well at this point ambulating with a wheeled walker. Follow-up on a as needed basis if she has any issues she knows how to contact us. I personally evaluated this patient and agree with the note from the nurse/resident/fellow including PMH, PSH, SH, meds, allergies, and review of systems. I completed the HPI and performed the physical exam. Additionally I reviewed available imaging and wrote my interpretation. I wrote the Assessment and Plan. This note was partially generated using Digital [employer] voice recognition system. [facility]04-26-2023 NoteHNO ID: [id number] Author: Jimbo Bauer RT(R) Service: ? Author Type: Drying Rack Changer Type: Progress Notes Filed: 12/10/2022 9:50 AM Note Text: Radiology Service Progress Note PATIENT NAME: Leyla Lambert DATE OF SERVICE: December 10, 2022 TIME: 9:50 AM PATIENT IDENTITY VERIFICATION COMPLETED USING TWO (2) IDENTIFIERS: Name and Date of confirmed by patient verbally. FALL SCREENING: Has the patient had 2 falls in the last year or 1 fall with injury or currently using an Ambulatory Assistive Device (Walker, Cane, Wheelchair, Crutches, etc.)? No PATIENT GENDER DATA: Female. status: : No status: NO. PATIENT RELEVANT IMPLANT DATA REVIEWED: Yes RADIOLOGY DEPARTMENT: General X-ray: Exam(s) Completed: Lower Extremity X-Ray(s): Knee, AP / Lat / Merchant Right and Wt. Bearing PERIPHERAL IV DATA: Not applicable SIGNED BY: RT Betty(R) December 10, 2022 9:50 [facility]04-26-2023 History of Present illness Narrative* Nguyễn Jean MD - 12/10/2022 10:47 AM EDT Leyla returns today for follow-up of her right knee. Her most recent surgery was a poly swap back in April 2022. She is actually been doing much better over the past 6 months. She did stop takingdoxycycline 2 months ago due to GI upset. Still, since stopping that her symptoms have not changed.She is currently happy with her right knee. At the time of surgery no growth was shown on cultures. Exam of her knee reveals no erythema or excessive warmth. Mild appropriate effusion. She has a constrained implant but it is stable throughout all range of motion. X-rays today are unchanged, she hasa well fixed right constrained knee replacement. No fractures or any sign of loosening. She is doing well at this point ambulating with a wheeled walker. Follow-up on a as needed basis ifscarlett has any issues she knows how to contact us. I personally evaluated this patient and agree with the note from the nurse/resident/fellow including PMH, PSH, SH, meds, allergies, and review of systems. I completed the HPI and performed the physical exam. Additionally I reviewed available imaging and wrote my interpretation. I wrote the Assessment and Plan. This note was partially generated using Digital [employer] voice recognition system. documented in [facility] encounterHigh[facility]04-[facility] History of Present illness Narrative* Jimbo Bauer RT(R) - 12/10/2022 10:45 AM EDT Radiology Service Progress Note PATIENT NAME: Leyla Lambert DATE OF SERVICE: December 10, 2022 TIME: 9:50 AM PATIENT IDENTITY VERIFICATION COMPLETED USING TWO (2) IDENTIFIERS: Name and Date of confirmedby patient verbally. FALL SCREENING: Has the patient had 2 falls in the last year or 1 fall with injury or currently using an Ambulatory Assistive Device (Walker, Cane, Wheelchair, Crutches, etc.)? No PATIENT GENDER DATA: Female. status: : No status: NO. PATIENT RELEVANT IMPLANT DATA REVIEWED: Yes RADIOLOGY DEPARTMENT: General X-ray: Exam(s) Completed: Lower Extremity X- Ray(s): Knee, AP / Lat / Merchant Right and Wt. Bearing PERIPHERAL IV DATA: Not applicable SIGNED BY: RT Betty(R) December 10, 2022 9:50 AM documented in this encounterHigh[facility]04-24-2023 History of Present illness Narrative* Shy Osuna, [facility] - 12/08/2022 10:40 AM EDT [facility] Medication Management ANTICOAGULATION Referring Provider: Dr Moore GOAL INR: 2 - 3 TODAY'S INR: 1.7 WARFARIN Dosage: Increase warfarin to 1.5 tablet for 7.5 mg on Mondays and whole 5 mg tablet all other days. INR (no units) Date Value 11/24/2022 2.2 06/30/2022 1.5 06/25/2022 1.1 06/17/2022 1.2 06/12/2022 1.3 06/06/2022 2.2 06/04/2022 4.3 Hemoglobin Date Value Ref Range Status 05/19/2022 10.2 (L) 11.9 - 15.1 g/dL Final Hematocrit Date Value Ref Range Status 05/19/2022 31.6 (L) 36.3 - 47.1 % Final ALT Date Value Ref Range Status 04/02/2022 15 5 - 33 U/L Final AST Date Value Ref Range Status 04/02/2022 22 <32 U/L Final Medication changes: Stopped Tums Not taking Ditropan right now due to stomach problems Notes: Fingerstick INR drawn per clinic protocol. Patient states no visible blood in urine and no black tarry stool. Denies any missed doses of warfarin. No change in other maintenance medications jessica diet. Will recheck INR in 2 weeks. Patient acknowledges working in consult agreement with pharmacist as referred by his/her physician. Patient is down to 105 lb because she cannot swallow and had her esophagus stretched twice in [place] and a polyp removed from her esophagus while in [place]. I gave patient the phone number for Dr Tai and told patient that she needed to get a referral to Dr Tai from her PCP. For Pharmacy Admin Tracking Only Intervention Detail: Adherence Monitorin, Dose Adjustment: 1, reason: Therapy Optimization, andNew Rx: 2, reason: Patient Preference Total # of Interventions Recommended: 3 Total # of Interventions Accepted: 3 Time Spent (min): 20 Shy Osuna RPH, PharmD documented in this encounterDIGN[facility] [employer] Phone: [phone] Hospital Discharge instructions* Patient Instructions* Shy Osuna RPH - 12/08/2022 10:40 AM EDT Continue to monitor urine and stool for signs and symptoms of bleeding. Please notify the clinic of any medication changes. Please remember to bring all medications (both prescription and OTC) to your next visit. Kindly notify the clinic if you are unable to make to your next appointment. Increase warfarin to 1.5 tablet for 7.5 mg on Mondays and whole 5 mg tablet all other days. documented in this encounterDIGNITY [facility] [employer] Phone: [phone] Hospital Discharge instructions Patient Education 12/01/2022 15:13:48 Overactive Bladder, Adult Overactive Bladder, Adult Overactive bladder refers to a condition in which a person has a sudden need to pass urine. The person may leak urine if he or she cannot get to the bathroom fast enough (urinary incontinence). A person with this condition may also wake up several times in the night to go to the bathroom. Overactive bladder is associated with poor nerve signals between your bladder and your brain. Your bladder may get the signal to empty before it is full. You may also have very sensitive muscles thatmake your bladder squeeze too soon. These symptoms might interfere with daily work or social activities. What are the causes? This condition may be associated with or caused by: Urinary tract infection. Infection of nearby tissues, such as the prostate. Prostate enlargement. Surgery on the uterus or urethra. Bladder stones, inflammation, or tumors. Drinking too much caffeine or alcohol. Certain medicines, especially medicines that get rid of extra fluid in the body (diuretics). Muscle or nerve weakness, especially from: ?A spinal cord injury. ?Stroke. ?Multiple sclerosis. ?Parkinson's disease. Diabetes. Constipation. What increases the risk? You may be at greater risk for overactive bladder if you: Are an older adult. Smoke. Are going through menopause. Have prostate problems. Have a neurological disease, such as stroke, dementia, Parkinson's disease, or multiple sclerosis (MS). Eat or drink things that irritate the bladder. These include alcohol, spicy food, and caffeine. Are overweight or obese. What are the signs or symptoms? Symptoms of this condition include: Sudden, strong urge to urinate. Leaking urine. Urinating 8 or more times a day. Waking up to urinate 2 or more times a night. How is this diagnosed? Your health care provider may suspect overactive bladder based on your symptoms. He or she will diagnose this condition by: A physical exam and medical history. Blood or urine tests. You might need bladder or urine tests to help determine what is causing your overactive bladder. You might also need to see a health care provider who specializes in urinary tract problems (urologist). How is this treated? Treatment for overactive bladder depends on the cause of your condition and whether it is mild or severe. You can also make lifestyle changes at home. Options include: Bladder training. This may include: ?Learning to control the urge to urinate by following a schedule that directs you to urinate at regular intervals (timed voiding). ?Doing Kegel exercises to strengthen your pelvic floor muscles, which support your bladder. Toning these muscles can help you control urination, even if your bladder muscles are overactive. Special devices. This may include: ?Biofeedback, which uses sensors to help you become aware of your body's signals. ?Electrical stimulation, which uses electrodes placed inside the body (implanted) or outside the body. These electrodes send gentle pulses of electricity to strengthen the nerves or muscles that control the bladder. ?Women may use a plastic device that fits into the vagina and supports the bladder (pessary). Medicines. ?Antibiotics to treat bladder infection. ?Antispasmodics to stop the bladder from releasing urine at the wrong time. ?Tricyclic antidepressants to relax bladder muscles. ?Injections of botulinum toxin type A directly into the bladder tissue to relax bladder muscles. Lifestyle changes. This may include: ?Weight loss. Talk to your health care provider about weight loss methods that would work best for you. ?Diet changes. This may include reducing how much alcohol and caffeine you consume, or drinking fluids at different times of the day. ?Not smoking. Do not use any products that contain nicotine or tobacco, such as cigarettes and e-cigarettes. If you need help quitting, ask your health care provider. Surgery. ?A device may be implanted to help manage the nerve signals that control urination. ?An electrode may be implanted to stimulate electrical signals in the bladder. ?A procedure may be done to change the shape of the bladder. This is done only in very severe cases. Follow these instructions at home: Lifestyle Make any diet or lifestyle changes that are recommended by your health care provider. These may include: ?Drinking less fluid or drinking fluids at different times of the day. ?Cutting down on caffeine or alcohol. ?Doing Kegel exercises. ?Losing weight if needed. ?Eating a healthy and balanced diet to prevent constipation. This may include: ?Eating foods that are high in fiber, such as fresh fruits and vegetables, whole grains, and beans. ?Limiting foods that are high in fat and processed sugars, such as fried and sweet foods. General instructions Take udje-cjs-vohthdf and prescription medicines only as told by your health care provider. If you were prescribed an antibiotic medicine, take it as told by your health care provider. Do notstop taking the antibiotic even if you start to feel better. Use any implants or pessary as told by your health care provider. If needed, wear pads to absorb urine leakage. Keep a journal or log to track how much and when you drink and when you feel the need to urinate. This will help your health care provider monitor your condition. Keep all follow-up visits as told by your health care provider. This is important. Contact a health care provider if: You have a fever. Your symptoms do not get better with treatment. Your pain and discomfort get worse. You have more frequent urges to urinate. Get help right away if: You are not able to control your bladder. Summary Overactive bladder refers to a condition in which a person has a sudden need to pass urine. Several conditions may lead to an overactive bladder. Treatment for overactive bladder depends on the cause and severity of your condition. Follow your health care provider's instructions about lifestyle changes, doing Kegel exercises, keeping a journal, and taking medicines. This information is not intended to replace advice given to you by your health care provider. Make sure you discuss any questions you have with your health care provider. Document Released: 05/30/2010 Document Revised: 11/24/2019 Document Reviewed: 08/19/2018 [employer] Patient Education 2020 [employer]. Follow Up Care 04/14/2022 14:18:15 With:KATHE CLARK, Isauro W, URL Address: [address] [place], [place] [id number]- When:3 months Comments:2 month follow up [facility] 04-10-2023 Note [facility] Vascular Lower Extremities DVT Study Procedure Patient Name PETRA MAYER Date of Study 11/24/2022 A Date of 1940 Gender Female Age 82 year(s) Race Room Number Corporate ID # [id number] Patient MR # [id number] Print Designer Darshana Thorne, Sunita Interpreting Physician Khari Lira DO Referring Referring Physician HEMAL Lilly Nurse Practitioner Additional Comments Results were called to Muriel's office 11/24/22 @ 1200. Procedure Type of Study: Veins: Lower Extremities DVT Study, Venous Scan Lower Bilateral. Indications for Study:Edema and Hx of DVT. Patient Status:STAT. Technical Quality:Adequate visualization. Comments:Simultaneous real time imaging utilizing B-Mode, color doppler and spectral waveform analysis was performed on the bilateral lower extremities for venous examination of the deep and superficial systems. Conclusions Summary No evidence of superficial or deep venous thrombosis in both lower extremities. Signature Findings: Right Impression: Left Impression: Common femoral, femoral, deep Common femoral, femoral, deep femoral, popliteal, tibials, femoral, popliteal, tibials, peroneal, and saphenous veins were peroneal, and saphenous veins were evaluated. evaluated. All veins were compressible and with All veins were compressible and with normal doppler responses. normal doppler responses. Allergies - Allergy:*Unlisted(Drug). Comments:Tylenol with codeine - Allergy:Latex(Miscellaneous). - Allergy:*Unlisted(Drug). Comments:larry campbell Velocities are measured in cm/s ; Diameters are measured in cm Right Lower Extremities DVT Study Measurements Right 2D Measurements + + + + + !Location !Visualized!Compressibility!Thrombosis! + + + + + !Common Femoral !Yes !Yes !None ! + + + + + !Prox Femoral !Yes !Yes !None ! + + + + + !Mid Femoral !Yes !Yes !None ! + + + + + !Dist Femoral !Yes !Yes !None ! + + + + + !Deep Femoral !Yes !Yes !None ! + + + + + !Popliteal !Yes !Yes !None ! + + + + + !Sapheno Femoral Junction !Yes !Yes !None ! + + + + + !PTV !Yes !Yes !None ! + + + + + !Peroneal !Yes !Yes !None ! + + + + + !Gastroc !Yes !Yes !None ! + + + + + !GSV Thigh !Yes !Yes !None ! + + + + + !GSV Knee !Yes !Yes !None ! + + + + + !GSV Ankle !Yes !Yes !None ! + + + + + !SSV !Yes !Yes !None ! + + + + + Right Doppler Measurements +------- (more content not included)...[facility] [id number] History of Present illness Narrative* Nighat Bazzi, [facility] - 11/24/2022 11:00 AM EDT [facility] Medication Management ANTICOAGULATION Referring Provider: Dr. 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 Patient states no visible blood in urine and no black tarry stool. Denies any missed doses of warfarin. No change in other maintenance medications jessica diet. Will recheck INR in 2 weeks. Patient acknowledges working in consult agreement with pharmacist as referred by his/her physician. Patient recently returned from winter in [place]. She reports difficulty swallowing with associatedweight loss. She was diagnosed with GERD, dysphagia and gastroparesis. Patient has BLE swelling and pain in left calf. She was prescribed cephalexin for cellulitis and will complete in 2 days. She has a large scabbed over area on left giron that she said wouldn't stop bleeding . She held warfarin she believes for 4 days (as instructed per her open hearth worker in [place]) due to the bleeding. Last INR in [place] on 11/15/22 was 1.03. Patient reports current dose of warfarin is 5 mg po daily. Cardiology has ordered doppler today to rule out DVT due to recent travel. INR is therapeutic today at 2.2. For Pharmacy Admin Tracking Only Intervention Detail: Adherence Monitorin and Dose Adjustment: 1, reason: Improve Adherence, Therapy Optimization Total # of Interventions Recommended: 2 Total # of Interventions Accepted: 2 Time Spent (min): 30 Nighat Bazzi RPh documented in this encounterBON [facility] Work Phone: 1(288) 116-752704-10-2023 Hospital Discharge instructions* Patient Instructions* Nighat Bazzi RPH - 11/24/2022 11:00 AM EDT Continue current dose of warfarin as instructed on dosing calendar provided. Continue to monitor urine and stool for signs and symptoms of bleeding. Please notify the clinic of any medication changes. Please remember to bring all medications (both prescription and OTC) to your next visit. Kindly notify the clinic if you are unable to make to your next appointment. documented in this encounterBON [employer] Phone: 1(959) 374-774811-19-2022 NoteHNO ID: [id number] Author: Interface Note Service: ? Author Type: ? Type: Progress Notes Filed: 07/05/2022 2:42 AM Note Text: Epic Scheduled Downtime: 07/05/2022 1:00:00 AM to 07/05/2022 2:26:04 [id number] History of Present illness Narrative* Nguyễn Jean MD - 07/02/2022 1:24 PM EST Ortho Knee Follow Up Note Narrative Referring Provider: Nguyễn Jean [address] [facility] [address] PCP: Douglas Will MD IMPRESSION/PLAN: 81 year old s/p revision Right Total Knee Replacement completed on 05/02/2022. Incision remains healed. She continues to do well. tingling of right leg persists Orthopaedic Surgeries 05/02/2022 (8w, 5d) ARTHROTOMY KNEE W/ EXPLORATION AND DRAINAGE (Right) Angel Mortensen DO; Marlin Hansen MD; Matthew Barrett DO; Mansoor Marin MD - Posted 05/30/2021 (1yr, 1mo) ARTHROTOMY KNEE W/ EXPLORATION (Right) Nguyễn Jean MD; Milton Pelayo DO; Emery Churchill MD; Umesh Daugherty MD - Posted 06/18/2018 (4yr) ARTHROTOMY KNEE W/ EXPLORATION AND DRAINAGE (Right) Inessa (Hist) MD Blas; Td Bales MD; Robbie (Hist) Rickey - Posted 08/06/2016 (5yr) REVISION JOINT TOTAL KNEE FEMORAL AND ENTIRE TIBIAL COMPONENT (Right) Adam Zhu MD; Donnie uQinonez DO; Al Win DO - Posted PAIN EVALUATION 07/02/2022 1309 Pain Level: 5 Pain Location: Knee-Right Description: Aching Duration Amount of Time: 3 Duration Units: Weeks Frequency: Intermittent IMPRESSION: At normal post-operative stage of recovery. PLAN: Neuro consult to eval right leg tingling Patient Reassurance: Patient reassured and supported. All questions answered. Follow up 1 year X-Rays Needed EXAM: POST OP KNEE Right Post-Operative Knee Ambulates with a limp favoring the right. SKIN: Incision well healed. Range of motion is 5 degrees in extension and 120 degrees of flexion. Extension Lag: < 10 degrees Pain with ROM: No There is None effusion. Mal-alignment: No Tender to the palpation of diffusely Neurovascular Status: Sensation Intact and Moves foot and ankle up & down Stability:Anterior/Posterior- Yes, stable and Varus/Valgus- Yes, stable Quad strength: intact Imagin. Implants are well aligned. Implants are well fixed. There is no evidence of loosening. Provider: Nguyễn Jean MD Completed by: Corey Murrieta RN I personally evaluated this patient and agree with the note from the nurse/resident/fellow including PMH, PSH, SH, meds, allergies, and review of systems. I completed the HPI and performed the physical exam. Additionally I reviewed available imaging and wrote my interpretation. I wrote the Assessment and Plan. documented in this encounterHighland [facility] Hospital11-14-2022 History of Present illness Narrative* Nighat Bazzi, [facility] - 06/30/2022 11:00 AM EST [facility] ANTICOAGULATION Referring Provider: Dr. Moore GOAL INR: 2-3 TODAY'S INR: 1.5 WARFARIN Dosage: Increase warfarin to 7.5 mg po every Thursday and Thursday; 5 mg po all other days Patient will take warfarin 10 mg po today for 1 dose INR (no units) Date Value 06/30/2022 1.5 06/25/2022 1.1 06/17/2022 1.2 06/12/2022 1.3 06/06/2022 2.2 06/04/2022 4.3 05/15/2022 2.1 Medication changes: No changes Notes: Fingerstick INR drawn per clinic protocol. Patient states no visible blood in urine and no black tarry stool. Denies any missed doses of warfarin. No change in other maintenance medications jessica diet. Patient states that her eating has improved with Protonix BID. She is eating more again. Will recheck INR in November 2022 when she returns from [place]. Patient acknowledges working in consultagreement with pharmacist as referred by his/her physician. Patient is leaving for [place] for the winter in 2 days. Patient has a open hearth worker in [place] who monitors warfarin therapy. Patient states that she has a standing order for PT/INR in [place]. I encouraged patient to have INR check when she gets to [place] (approximately 1 week) as she has had much variability in her INR results recently due to recent knee surgery and change in eating habits. For Pharmacy Admin Tracking Only Intervention Detail: Adherence Monitorin and Dose Adjustment: 2, reason: Improve Adherence, Therapy Optimization Total # of Interventions Recommended: 3 Total # of Interventions Accepted: 3 Time Spent (min): 30 Nighat Bazzi RPH documented in this encounterBON [facility] Work Phone: 1(891) 267-337711-14-2022 Hospital Discharge instructions* Patient Instructions* Nighat Bazzi RPH - 06/30/2022 11:00 AM EST Please take warfarin 10 mg today. Increase current dose of warfarin as instructed on dosing calendar provided - 7.5 mg every Thursday and Thursday and 5 mg all other days. Continue to monitor urine and stool for signs and symptoms of bleeding. Please notify the clinic of any medication changes. Please remember to bring all medications (both prescription and OTC) to your next visit. Kindly notify the clinic if you are unable to make to your next appointment. documented in this encounterBON [facility] Work Phone: [phone]) 916-346310-27-2022 History of Present illness Narrative* Shy Osuna [facility] - 06/12/2022 8:40 AM EDT [facility] ANTICOAGULATION Referring Provider: Dr. Moore GOAL INR: 2-3 TODAY'S INR: 1.3 WARFARIN Dosage: Take warfarin a half tablet for 2.5 mg tonight then a whole 5 mg tablet after PICCline remaoval tomorrow then continue warfarin half tablets for 2.5 mg MWF and whole 5 mg tablet allother days. INR (no units) Date Value 06/06/2022 2.2 06/04/2022 4.3 05/15/2022 2.1 05/12/2022 1.4 04/03/2022 2.4 04/02/2022 3 03/05/2022 2.5 Medication changes: Finishing up Cipro After Cipro completed going to continue Doxycyline Notes: Fingerstick INR drawn per clinic protocol. Patient states no visible blood in urine and no black tarry stool. Denies any missed doses of warfarin. No change in other maintenance medications jessica diet. Will recheck INR in 1 week. Patient acknowledges working in consult agreement with pharmacist as referred by his/her physician. Patient completed Vancomycin. Patient needs INR 2.0 or below for pick line removal tomorrow. Patient is not eating due to hiatal hernia and lost another 2 pounds since last visit 6 days ago. Not eating can increase INR. Decreased warfarin considerably. Patient did not take warfarin last night. For Pharmacy Admin Tracking Only Intervention Detail: Adherence Monitorin, Dose Adjustment: 2, reason: Therapy Optimization, andNew Rx: 2, reason: Needs Additional Therapy Total # of Interventions Recommended: 4 Total # of Interventions Accepted: 4 Time Spent (min): 30 Shy Osuna RPH, PharmD documented in this encounterLIFEPOINT HOSPITALSConcilio [facility] Phone: [phone] 328-835910-27-2022 Hospital Discharge instructions* Patient Instructions* Shy Osuna RPH - 06/12/2022 8:40 AM EDT Continue to monitor urine and stool. Continue to monitor for signs of bleeding. Return to clinic in1 week. Take warfarin a half tablet for 2.5 mg tonight then a whole 5 mg tablet after PICC line remaoval tomorrow then continue warfarin half tablets for 2.5 mg MWF and whole 5 mg tablet all other days. documented in this encounterLIFEPOINT HOSPITALSS[facility] Phone: 1(221) 750-976410-19-2022 Miscellaneous Notes* Telephone Encounter - Marie Burr Adm Asst I - 06/04/2022 1:55 PM EDT Katie from [facility] called back, line scheduled for removal at [place] on 06/13 at 12:30. Left voice message with patient's nurse at [phone] per patient's request. Marie Burr Adm Asst I * Telephone Encounter - Marie Burr Adm Asst I - 06/04/2022 10:54 AM EDT Called [facility] at [phone] to schedule central line removal appointment. No answerleft detailed voice message with Sabina. Marie Burr Adm Asst I documented in this encounterHighland District Hospital10-19-2022 History of Present illness Narrative* Shy Osuna RPH - 06/04/2022 1:20 PM EDT [facility] Medication Management ANTICOAGULATION Referring Provider: Dr. Moore GOAL INR: 2-3 TODAY'S INR: 4.3 WARFARIN Dosage: Hold warfarin today and tomorrow then deccrease dosage to 1.5 tablets for 7.5 mg Michelle whole 5 mg tablet all other days. INR (no units) Date Value 05/15/2022 2.1 05/12/2022 1.4 04/03/2022 2.4 04/02/2022 3 03/05/2022 2.5 02/11/2022 1.9 01/29/2022 4.1 Medication changes: Stopped Vancomycin Decreased amlodipine from 5 mg to 2.5 mg daily Cipro will be complete in a couple days Notes: Fingerstick INR drawn per clinic protocol. Patient states no visible blood in urine and no black tarry stool. Denies any missed doses of warfarin. No change in other maintenance medications jessica diet. Will recheck INR in 1 week. Patient acknowledges working in consult agreement with pharmacist as referred by his/her physician. Patient completed Vancomycin. Patient needs INR 2.0 or below for pick line removal. Patient is not eating due to hiatal hernia and lost 12 pounds since last visit3.5 weeks ago. Not eating can increase INR. For Pharmacy Admin Tracking Only Intervention Detail: Adherence Monitorin, Dose Adjustment: 4, reason: Therapy Optimization, andNew Rx: 3, reason: Needs Additional Therapy Total # of Interventions Recommended: 7 Total # of Interventions Accepted: 7 Time Spent (min): 30 Shy Osuna RPH, PharmD documented in this encounterBON [facility] Work Phone: [phone] 177-181610-19-2022 Hospital Discharge instructions* Patient Instructions* Shy Osuna RPH - 06/04/2022 1:20 PM EDT Continue to monitor urine and stool. Continue to monitor for signs of bleeding. Return to clinic in1 week. Hold warfarin today and tomorrow then deccrease dosage to 1.5 tablets for 7.5 mg M and whole 5 mg tablet all other days. documented in this encounterBON [facility] CENTERscrib[facility] Work Phone: [phone]) 711-656610-18-2022 Nurse Note* Marie Burr Adm Asst I - 06/03/2022 11:20 AM EDT Orders of hold copat and home care nurse to draw random vancomycin and creatinine . Orders given to Kelly with [facility] ([phone]). Marie Burr Adm Asst I documented in this encounterHighland District Hospital10-12-2022 Miscellaneous Notes* Telephone Encounter - Sabina Cooper - 05/28/2022 12:26 PM EDT Patience called from Dr. Julio's office to get a letter of clearance that the patient is infectionfree and her list of meds faxed over for surgery. Fx number [phone] Call back number is [phone] Thank you, Sabina Cooper documented in this encounterHighland District Hospital10-05-2022 History of Present illness Narrative* Nguyễn Jean MD - 05/21/2022 1:51 PM EDT Ortho Knee Follow Up Note Narrative Referring Provider: Nguyễn Jean [address] [address] PCP: Douglas Will MD IMPRESSION/PLAN: 81 year old s/p Left knee I&D, poly exchange completed on 05/02/2022. Orthopaedic Surgeries 05/02/2022 (2w, 5d) ARTHROTOMY KNEE W/ EXPLORATION AND DRAINAGE (Right) Angel Mortensen DO; Marlin Hansen MD; Matthew Barrett DO; Mansoor Marin MD - Posted 05/30/2021 (11mo) ARTHROTOMY KNEE W/ EXPLORATION (Right) Nguyễn Jean MD; Milton Pelayo DO; Emery Churchill MD; Umesh Daugherty MD - Posted 06/18/2018 (3yr) ARTHROTOMY KNEE W/ EXPLORATION AND DRAINAGE (Right) Inessa TobiasHistBerkley Odonnell MD; Td Bales MD; Robbie TobiasHistBerkley Lang - Posted 08/06/2016 (5yr) REVISION JOINT TOTAL KNEE FEMORAL AND ENTIRE TIBIAL COMPONENT (Right) Adam Zhu MD; Donnie Quinonez DO; Al Win DO - Posted PAIN EVALUATION 05/21/2022 1334 Pain Level: 7 Pain Location: Knee-Right Description: Aching Duration Amount of Time: 3 Duration Units: Weeks Frequency: Continuous Intervention/Comfort measure: Medication;Cold;Exercise IMPRESSION: At normal post-operative stage of recovery. Cultures from most recent surgery finalized with no growth. Patient will continue her IV abx then return on chronic suppressive PO abx. PLAN: No new treatment indicated: Routine follow-up. discuss with Babic to ensure no lapse in abx Patient Reassurance: Normal post-operative course discussed with patient. Patient reassured and supported. All questions answered. Follow up 3 months No X-Rays Needed Leyla Lambert presents today for a a routine 1st post-op visit ACTIVE PROBLEM LIST Painful Total Knee Replacement (Hcc) Atrial Fibrillation (Hcc) Coronary Atherosclerosis Other Pulmonary Embolism and Infarction Essential Hypertension, Benign Breast Cancer (Hcc) Copd, Group D, By Gold 2017 Classification (Hcc) Status Post Knee Surgery History of Pulmonary Embolism Mixed Simple and Mucopurulent Chronic Bronchitis (Hcc) Prosthetic Joint Infection (Hcc) Malnutrition of Mild Degree (Hcc) Effusion of Left Knee Hypothyroidism Infection Malnutrition of Moderate Degree (Hcc) Karlee (Acute Kidney Injury) (Hcc) Retroperitoneal Hematoma Hypokalemia History of Dvt (Deep Vein Thrombosis) Pacemaker Mthfr Gene Mutation Anticoagulated Carisa (Obstructive Sleep Apnea) Rls (Restless Legs Syndrome) Hiatal Hernia Antonio (Dyspnea On Exertion) Iron Deficiency Anemia Iron Malabsorption Infected Prosthetic Knee Joint, Subsequent Encounter Status post op: BMI: There is no height or weight on file to calculate BMI. Post-operative recovery was complicated by uneventful/none. Readmission(s) since surgery (90 days post)? No ED Visits & Hospitalizations - Last 180 days 05/02/22 Nguyễn Jean MD, [id number] Post-op pain ..., Admission (Discharged) Patient rates their condition as improving. She reports moderate pain that is improving since surgery. She does have a PICC line currently and is receiving IV vanc. She denies any drainage or issues with her incision. EXAM: POST OP KNEE Left Post-Operative Knee Ambulates with a: limp favoring the left. SKIN: Appropriate postop appearance and Sutures intact. Mild erythema about the knee. No drainage. Small area of skin necrosis at the midportion of the incision. Range of motion is 5 degrees in extension and 100 degrees of flexion. Extension La degrees Pain with ROM:Yes There is Mild effusion. Mal-alignment: No Tender to the palpation of Medial femoral condyle and Lateral femoral condyle Neurovascular Status: Sensation Intact, Moves foot and ankle up & down, and 2+ dorsalis pedis Stability:Anterior/Posterior- Yes, stable and Varus/Valgus- Yes, stable Quad strength: weak Imagin. Implants are well aligned, no changes from prior examinations Provider: Nguyễn Jean MD Completed by: Rafael Arizmendi MD I personally evaluated this patient and agree with the note from the nurse/resident/fellow including PMH, PSH, SH, meds, allergies, and review of systems. I completed the HPI and performed the physical exam. Additionally I reviewed available imaging and wrote my interpretation. I wrote the Assessment and Plan. documented in this encounterHigh[facility]09-29-[facility]22 History of Present illness Narrative* Shy Osuna, [facility] - 05/15/2022 2:40 PM EDT [facility] Medication Management ANTICOAGULATION Referring Provider: Dr. Moore GOAL INR: 2-3 TODAY'S INR: 2.1 WARFARIN Dosage: Continue warfarin 1.5 tablets for 7.5 mg MWF and whole 5 mg tablet all other days.Stop Lovenox INR (no units) Date Value 05/12/2022 1.4 04/03/2022 2.4 04/02/2022 3 03/05/2022 2.5 02/11/2022 1.9 01/29/2022 4.1 01/01/2022 2.3 Medication changes: Started Ultram prn pain Vancomycin Stopped Lovenox Cipro Notes: Fingerstick INR drawn per clinic protocol. Patient states no visible blood in urine and no black tarry stool. Denies any missed doses of warfarin. No change in other maintenance medications jessica diet. Will recheck INR in 4 weeks. Patient acknowledges working in consult agreement with pharmacist as referred by his/her physician. For Pharmacy Admin Tracking Only Intervention Detail: Adherence Monitorin and New Rx: 4, reason: Needs Additional Therapy Total # of Interventions Recommended: 4 Total # of Interventions Accepted: 4 Time Spent (min): 30 Shy Osuna RPH, PharmD documented in this encounterLIFEPOINT [email or web address] Phone: [phone] 424-895009-29-2022 Hospital Discharge instructions* Patient Instructions* Shy Osuna RPH - 05/15/2022 2:40 PM EDT Continue to monitor urine and stool. Continue to monitor for signs of bleeding. Return to clinic in4 weeks. Continue warfarin 1.5 tablets for 7.5 mg MWF and whole 5 mg tablet all other days. Stop Lovenox documented in this encounterLIFEPOINT [email or web address] Phone: [phone]) 269-799709-14-2022 Miscellaneous Notes* Telephone Encounter - Marika Oviedo [facility] - 04/30/2022 4:38 PM EDT 1st report of treatment-Non oncology regimen (Venofer) Patient holds medicare coverage. No FA available to offer at this time. documented in this encounterHighland District Hospital09-13-2022 Miscellaneous Notes* Telephone Encounter - Harry Royal - 04/29/2022 10:12 AM EDT Patient is wondering if she needs to have a covid test before her procedure on the , however there is no covid order put through so the call center called to double check but patient hung up on both of us, needs a call back to inform her if she needs a covid test or not documented in this encounterHighland District Hospital09-09-2022 Miscellaneous Notes* Telephone Encounter - CORAL William - 04/25/2022 9:36 AM EDT 04/25/22 Patient appeared on the First Time Treatment report for a non-oncology treatment. No psychosocial assessment is indicated. JENN William documented in this encounterHighland District Hospital08-29-2022 Hospital Discharge instructions Patient Education 04/14/2022 14:15:14 Urinary Frequency, Adult Urinary Frequency, Adult Urinary frequency means urinating more often than usual. You may urinate every 1 2 hours even though you drink a normal amount of fluid and do not have a bladder infection or condition. Although you urinate more often than normal, the total amount of urine produced in a day is normal. With urinary frequency, you may have an urgent need to urinate often. The stress and anxiety of needing to find a bathroom quickly can make this urge worse. This condition may go away on its own or you may need treatment at home. Home treatment may include bladder training, exercises, taking medicines, or making changes to your diet. Follow these instructions at home: Bladder health Keep a bladder diary if told by your health care provider. Keep track of: ?What you eat and drink. ?How often you urinate. ?How much you urinate. Follow a bladder training program if told by your health care provider. This may include: ?Learning to delay going to the bathroom. ?Double urinating (voiding). This helps if you are not completely emptying your bladder. ?Scheduled voiding. Do Kegel exercises as told by your health care provider. Kegel exercises strengthen the muscles that help control urination, which may help the condition. Eating and drinking If told by your health care provider, make diet changes, such as: ?Avoiding caffeine. ?Drinking fewer fluids, especially alcohol. ?Not drinking in the evening. ?Avoiding foods or drinks that may irritate the bladder. These include coffee, tea, soda, artificial sweeteners, citrus, tomato-based foods, and chocolate. ?Eating foods that help prevent or ease constipation. Constipation can make this condition worse. Your health care provider may recommend that you: ?Drink enough fluid to keep your urine pale yellow. ?Take xaqz-nus-ktttrpw or prescription medicines. ?Eat foods that are high in fiber, such as beans, whole grains, and fresh fruits and vegetables. ?Limit foods that are high in fat and processed sugars, such as fried or sweet foods. General instructions Take uiwb-eog-pninhio and prescription medicines only as told by your health care provider. Keep all follow-up visits as told by your health care provider. This is important. Contact a health care provider if: You start urinating more often. You feel pain or irritation when you urinate. You notice blood in your urine. Your urine looks cloudy. You develop a fever. You begin vomiting. Get help right away if: You are unable to urinate. Summary Urinary frequency means urinating more often than usual. With urinary frequency, you may urinate every 1 2 hours even though you drink a normal amount of fluid and do not have a bladder infection or other bladder condition. Your health care provider may recommend that you keep a bladder diary, follow a bladder training program, or make dietary changes. If told by your health care provider, do Kegel exercises to strengthen the muscles that help control urination. Take mmuf-flz-clwjsji and prescription medicines only as told by your health care provider. Contact a health care provider if your symptoms do not improve or get worse. This information is not intended to replace advice given to you by your health care provider. Make sure you discuss any questions you have with your health care provider. Document Released: 05/30/2010 Document Revised: 02/10/2019 Document Reviewed: 02/10/2019 [employer] Patient Education 2020 [employer]. 04/14/2022 14:11:42 Overactive Bladder, Adult Overactive Bladder, Adult Overactive bladder refers to a condition in which a person has a sudden need to pass urine. The person may leak urine if he or she cannot get to the bathroom fast enough (urinary incontinence). A person with this condition may also wake up several times in the night to go to the bathroom. Overactive bladder is associated with poor nerve signals between your bladder and your brain. Your bladder may get the signal to empty before it is full. You may also have very sensitive muscles thatmake your bladder squeeze too soon. These symptoms might interfere with daily work or social activities. What are the causes? This condition may be associated with or caused by: Urinary tract infection. Infection of nearby tissues, such as the prostate. Prostate enlargement. Surgery on the uterus or urethra. Bladder stones, inflammation, or tumors. Drinking too much caffeine or alcohol. Certain medicines, especially medicines that get rid of extra fluid in the body (diuretics). Muscle or nerve weakness, especially from: ?A spinal cord injury. ?Stroke. ?Multiple sclerosis. ?Parkinson's disease. Diabetes. Constipation. What increases the risk? You may be at greater risk for overactive bladder if you: Are an older adult. Smoke. Are going through menopause. Have prostate problems. Have a neurological disease, such as stroke, dementia, Parkinson's disease, or multiple sclerosis (MS). Eat or drink things that irritate the bladder. These include alcohol, spicy food, and caffeine. Are overweight or obese. What are the signs or symptoms? Symptoms of this condition include: Sudden, strong urge to urinate. Leaking urine. Urinating 8 or more times a day. Waking up to urinate 2 or more times a night. How is this diagnosed? Your health care provider may suspect overactive bladder based on your symptoms. He or she will diagnose this condition by: A physical exam and medical history. Blood or urine tests. You might need bladder or urine tests to help determine what is causing your overactive bladder. You might also need to see a health care provider who specializes in urinary tract problems (urologist). How is this treated? Treatment for overactive bladder depends on the cause of your condition and whether it is mild or severe. You can also make lifestyle changes at home. Options include: Bladder training. This may include: ?Learning to control the urge to urinate by following a schedule that directs you to urinate at regular intervals (timed voiding). ?Doing Kegel exercises to strengthen your pelvic floor muscles, which support your bladder. Toning these muscles can help you control urination, even if your bladder muscles are overactive. Special devices. This may include: ?Biofeedback, which uses sensors to help you become aware of your body's signals. ?Electrical stimulation, which uses electrodes placed inside the body (implanted) or outside the body. These electrodes send gentle pulses of electricity to strengthen the nerves or muscles that control the bladder. ?Women may use a plastic device that fits into the vagina and supports the bladder (pessary). Medicines. ?Antibiotics to treat bladder infection. ?Antispasmodics to stop the bladder from releasing urine at the wrong time. ?Tricyclic antidepressants to relax bladder muscles. ?Injections of botulinum toxin type A directly into the bladder tissue to relax bladder muscles. Lifestyle changes. This may include: ?Weight loss. Talk to your health care provider about weight loss methods that would work best for you. ?Diet changes. This may include reducing how much alcohol and caffeine you consume, or drinking fluids at different times of the day. ?Not smoking. Do not use any products that contain nicotine or tobacco, such as cigarettes and e-cigarettes. If you need help quitting, ask your health care provider. Surgery. ?A device may be implanted to help manage the nerve signals that control urination. ?An electrode may be implanted to stimulate electrical signals in the bladder. ?A procedure may be done to change the shape of the bladder. This is done only in very severe cases. Follow these instructions at home: Lifestyle Make any diet or lifestyle changes that are recommended by your health care provider. These may include: ?Drinking less fluid or drinking fluids at different times of the day. ?Cutting down on caffeine or alcohol. ?Doing Kegel exercises. ?Losing weight if needed. ?Eating a healthy and balanced diet to prevent constipation. This may include: ?Eating foods that are high in fiber, such as fresh fruits and vegetables, whole grains, and beans. ?Limiting foods that are high in fat and processed sugars, such as fried and sweet foods. General instructions Take gjkm-pcg-aawcobz and prescription medicines only as told by your health care provider. If you were prescribed an antibiotic medicine, take it as told by your health care provider. Do notstop taking the antibiotic even if you start to feel better. Use any implants or pessary as told by your health care provider. If needed, wear pads to absorb urine leakage. Keep a journal or log to track how much and when you drink and when you feel the need to urinate. This will help your health care provider monitor your condition. Keep all follow-up visits as told by your health care provider. This is important. Contact a health care provider if: You have a fever. Your symptoms do not get better with treatment. Your pain and discomfort get worse. You have more frequent urges to urinate. Get help right away if: You are not able to control your bladder. Summary Overactive bladder refers to a condition in which a person has a sudden need to pass urine. Several conditions may lead to an overactive bladder. Treatment for overactive bladder depends on the cause and severity of your condition. Follow your health care provider's instructions about lifestyle changes, doing Kegel exercises, keeping a journal, and taking medicines. This information is not intended to replace advice given to you by your health care provider. Make sure you discuss any questions you have with your health care provider. Document Released: 05/30/2010 Document Revised: 11/24/2019 Document Reviewed: 08/19/2018 [employer] Patient Education 2020 [employer]. Follow Up Care 01/28/2022 15:29:21 With:KATHE CLARK, Isauro More, URL Address: [address] [place] [phone] When:Within 8 Month(s) [facility] 08-18-2022 History of Present illness Narrative* Shante Woo RN - 04/03/2022 4:52 PM EDT Test Baker reviewed discharge instructions with patient and spouse. Both verbalized understanding. Denies questions. Copy of discharge instructions given to patient. * Sean Funez - 04/03/2022 11:34 AM EDT I met with Leyla and chatted about her current health. 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 Pt is anxious about the infection in her knee and how to effects the rest of her care. PT does not want us to reach her out to fellowship at this time. She was open and expressed gratitude for prayer. * Sherice Roman RN - 04/03/2022 11:11 AM EDT Instructed on objectives and procedure of lexiscan/cardiolite stress test. * CORAL St - 04/03/2022 9:34 AM EDT Discussed discharge plans with the patient. Patient is a 81 year old female here with Unstable angina. She is alert , oriented , and pleasant during our conversation. Patient is and lives at home with her . She has a cane , walker, and shower chair. Patient does the cooking and the cleaning. She is independent with her ADL's. Patient manages her ownmedications. Her does the driving. She has no outside services in the home. Her PCP is Douglas Will MD. She has medical insurance that helps with medication costs. The discharge plan is home with no services at this time. Patient has advance directives but not onfile. ARTIFICIAL TEETH INSPECTOR to monitor and assist with any needs or concerns as they arise. CORAL St * Serena Whitmore RD, CANDI - 04/03/2022 8:57 AM EDT Nutrition Assessment Type and Reason for Visit: Initial Nutrition Recommendations/Plan: Continue NPO diet. Progress to low fat/low cholesterol RD, high fiber diet when medically appropriate. Malnutrition Assessment: Malnutrition Status: Insufficient data Nutrition Assessment: Inadequate oral intakes r/t cardiac dysfunction aeb NPO. Pt admitted with chest pain. She is currently asleep. Nutrition Related Findings: unable to assess, darkened room Wound Type: None Current Nutrition Therapies: Diet NPO Exceptions are: Sips of Water with Meds Anthropometric Measures: Height: 5' 3 (160 cm) Current Body Wt: 126 lb 12.8 oz (57.5 kg) BMI: 22.5 Nutrition Diagnosis: Inadequate oral intake related to cardiac dysfunction as evidenced by NPO or clear liquid status due to medical condition Nutrition Interventions: Food and/or Nutrient Delivery: Continue NPO Nutrition Education/Counseling: No recommendation at this time Coordination of Nutrition Care: Continue to monitor while inpatient Goals: Goals: Initiate PO diet Recent Labs 04/02/22 1615 04/03/22 0600 NA 139 141 K 4.3 4.4 CL 106 109* CO2 22 24 BUN 21 16 CREATININE 1.17* 0.96* GLUCOSE 97 85 ALT 15 -- ALKPHOS 83 -- GFR Lab Results Component Value Date/Time LABALBU 3.8 04/02/2022 04:15 PM Nutrition Monitoring and Evaluation: Behavioral-Environmental Outcomes: None Identified Food/Nutrient Intake Outcomes: Diet Advancement/Tolerance Physical Signs/Symptoms Outcomes: Biochemical Data, Weight, Fluid Status or Edema Discharge Planning: Too soon to determine SERENA WHITMORE RD, CANDI Contact: [phone] * Vahe Davila RN - 04/03/2022 8:06 AM EDT Radiology called at this time, letting financial underwriter know that there was a VQ scan ordered for this pt andthe stress test and VQ cannot be completed within 24 hours of eachother. We will continue with stress test today and VQ should be completed tomorrow. * Vahe Davila RN - 04/03/2022 7:26 AM EDT Pt vitals and assessment completed at this time, see flowsheet. Pt A&O x4. BP 179/91. Pt says she feels minor shortness of breath at this time. Pt assisted to restroom, then back to bed. Pt denies any pain or any other needs at this time, call light within reach, will continue to monitor. * Marbella Swanson RN - 04/03/2022 3:39 AM EDT Patient had what appears to be 7 beats of vtach. Test Baker immediately checked on patient to find thatshe was getting sat up in bed to get ready to use the restroom. Patient denied chest pain. Test Baker assessed vitals. Blood pressure was slightly hypertensive but improved from previous. Test Baker assistedpatient into the bathroom and back into bed. Test Baker informed wet end supervisor and an EKG was completed. Test Baker will continue to monitor and call the open hearth worker if this happens again. Patient remains asymptomatic. Stress test and echo already ordered for this morning and patient is aware. Test Baker will inform oncoming shift and make sure the open hearth worker is made aware. Call light and bedside table remain within reach. Will continue to monitor and assess. * Marbella Swanson RN - 04/02/2022 6:57 PM EDT Vitals and assessment are complete at this time. Test Baker walked patient through the medications thatwould be administered tonight and encouraged patient to ask questions about the medications and tests to be completed in the morning. Patient denies questions and is aware of her upcoming stress testand echo. Patient's right leg is george and swollen, which is normal per patient. Patient also states she has a hiatal hernia that causes some discomfort and difficulty swallowing at times. Call lightis within reach and bed alarm set. Patient denies needs at this time. Will continue to monitor and assess. * Shante Woo RN - 04/02/2022 5:19 PM EDT Patient admitted to [facility] from cardiology office for chest pain. Patient ambulated to bathroom with walker. Gait steady. Patient voided and ambulated to bed. Patient alert and oriented x 4. Patient stated that chest pain had started this morning but the pain is intermittent. Denies SOB, chest pain or nausea @ this time. Noted pacemaker to left chest. Lungs clear, bowel sounds active x 4. Right lower leg reddened and edematous with pulses strong and palpable. Patient voiced that she had been dealing with the infection to right leg for a long time and has been seeing surgeon @ [facility]. Test Baker oriented patient to room, call light within reach. Test Baker reviewed plan of care with patient. documented in this encounterDIGN[facility] [employer] Phone: [phone] Hospital Discharge instructions* Discharge Instr - Activity* Shante Woo RN - 04/03/2022 4:22 PM EDT As tolerated * Discharge Instr - Diet* Shante Woo RN - 04/03/2022 4:22 PM EDT Good nutrition is important when healing from an illness, injury, or surgery. Follow any nutrition recommendations given to you during your hospital stay. If you were given an oral nutrition supplement while in the hospital, continue to take this supplement at home. You can take it with meals, in-between meals, and/or before bedtime. These supplements can be purchased at most local grocery stores, pharmacies, and chain super-stores. If you have any questions about your diet or nutrition, call the hospital and ask for the dietitian. Cardiac diet * Attachments The following attachments cannot be sent through Care Everywhere. * Angina (Venezuelan) documented in this encounterENCOMPASS HEALTH REHABILITATION HOSPITAL OF NEW ENGLANDBlogRadio Phone: [phone] 239-477708-17-2022 History of Present illness Narrative* Shy Osuna RPH - 04/02/2022 10:40 AM EDT [facility] Medication Management ANTICOAGULATION Referring Provider: Dr. Moore GOAL INR: 2-3 TODAY'S INR: 3.0 WARFARIN Dosage: Continue warfarin 1.5 tablets for 7.5 mg MWF and whole 5 mg tablet all other days. INR (no units) Date Value 03/05/2022 2.5 02/11/2022 1.9 01/29/2022 4.1 01/01/2022 2.3 11/25/2021 2.7 2021 1.6 07/08/2021 1.9 Medication changes: Doxycyline 100 mg BID Ditropan 5 mg at bedtime Only given Oxy and percocet for a few days for her leg pain Notes: Fingerstick INR drawn per clinic protocol. Patient states no visible blood in urine and no black tarry stool. Denies any missed doses of warfarin. No change in other maintenance medications jessica diet. Will recheck INR in 4 weeks. Patient acknowledges working in consult agreement with pharmacist as referred by his/her physician. Patient is still waiting for hiatal hernia surgery due to knee infected again. Orthopedic surgeon wants to take the knee out and put in a walter from ankle to hip. No BP cuff available For Pharmacy Admin Tracking Only Intervention Detail: Adherence Monitorin and New Rx: 3, reason: Needs Additional Therapy Total # of Interventions Recommended: 3 Total # of Interventions Accepted: 3 Time Spent (min): 30 Shy Osuna RPH, PharmD documented in this encounterB[facility] Work Phone: [phone]) [phone] Hospital Discharge instructions* Patient Instructions* Shy Osuna RPH - 04/02/2022 10:40 AM EDT Continue to monitor urine and stool. Continue to monitor for signs of bleeding. Return to clinic in4 weeks. Continue warfarin 1.5 tablets for 7.5 mg MWF and whole 5 mg tablet all other days. documented in this encounterDIGNITY [facility] [employer] Phone: [phone] History of Present illness Narrative* Nguyễn Jean MD - 03/31/2022 4:16 PM EDTAssociated Order(s): Large Joint Arthro/Inj: R knee joint Post-Procedure Diagnose(s): S/P revision of total knee, right She returns today for a right knee aspiration. Of note she had pain and swelling in this right kneefor some time. She been treated for infection in the past. Her acute phase reactants were elevated. With a long discussion about treatment options. Ideally we do a two-stage revision however I do notknow how well she would tolerate that procedure. I would also consider a stage 1.5 where we wouldremove her prosthesis and cement back into her old cement mantle potentially. We will follow-up on her aspiration results and formulate an operative plan. Large Joint Arthro/Inj: R knee joint Informed Consent Consent Obtained: Verbal [place] Protocol A moment to CARE was completed. SIGN IN Sign in communication not applicable due to emergent procedure. Personnel directly involved with the procedure wore the appropriate PPE. Special Equipment: N/A Patient/Surrogate Stated/Verified: Patient name, Date of , Relevant allergies and Intended procedure TIME OUT Intended patient and procedure match the source document(s). Consent documented and matches the intended procedure. Relevant labs, photos, and/or imaging studies have been reviewed. Correct side/site marked and visible. Medications required for procedure verified. No fire risk assessment and interventions applicable. No implant(s) inserted. 03/31/2022 4:17 PM The procedure site was prepped in the usual sterile fashion. Site: R knee joint Aspirate: 5 mL serous and blood-tingedAnesthetics: 4 mL lidocaine (PF) 10 mg/mL (1 %) Outcome: Tolerated well, no immediate complications SIGN OUT All specimen containers correctly labeled. All instruments, equipment, possible retained foreign bodies accounted for. Post-procedure follow-up management communicated and Plan of Care Visit completed when applicable [facility] History of Present illness Narrative* Nighat Bazzi RPH - 02/11/2022 11:20 AM EDT [facility] ANTICOAGULATION Referring Provider: Dr. Moore GOAL INR: 2-3 TODAY'S INR: 1.9 WARFARIN Dosage: Continue warfarin 7.5 mg po every MWF: 5 mg po all other days Patient will take warfarin 7.5 mg po today for 1 dose INR (no units) Date Value 02/11/2022 1.9 01/29/2022 4.1 01/01/2022 2.3 11/25/2021 2.7 2021 1.6 07/08/2021 1.9 05/09/2021 1.6 Medication changes: No changes Notes: Fingerstick INR drawn per clinic protocol. Patient states no visible blood in urine and no black tarry stool. Denies any missed doses of warfarin. Patient does report that she decreased her dose Thursday to 5 mg (from 7.5 mg) due to bruising. No change in other maintenance medications or in diet. Will recheck INR in 2 weeks - 1 day prior to surgery - if pre-surgery INR required. Patient acknowledges working in consult agreement with pharmacist as referred by his/her physician. Patient reports she is scheduled for hiatal hernia surgery on 02/28/22 at [facility]. She has not received warfarin hold instructions yet from surgeon. Dr. Moore note (12/09/21) indicates the following: Anticoagulant Agent: I would suggest holding her Warfarin for 5 days prior to the procedure. Anticoagulation Bridging: I do not think that heparin/lovenox bridging would be necessary For Pharmacy Admin Tracking Only Intervention Detail: Adherence Monitorin and Dose Adjustment: 1, reason: Therapy Optimization Total # of Interventions Recommended: 2 Total # of Interventions Accepted: 2 Time Spent (min): 20 Nighat Bazzi RPH documented [facility] Work Phone: [phone] Hospital Discharge instructions* Patient Instructions* Nighat Bazzi RPH - 02/11/2022 11:20 AM EDT Please take warfarin 7.5 mg today. Continue current dose of warfarin as instructed on dosing calendar provided - 7.5 mg every Thursday, Thursday and Thursday and 5 mg all other days. Return to clinic in 2 weeks. Continue to monitor urine and stool for signs and symptoms of bleeding. Please notify the clinic of any medication changes. Please remember to bring all medications (both prescription and OTC) to your next visit. Kindly notify the clinic if you are unable to make to your next appointment. documented in this encounterBON [facility] Phone: [phone]) 381-450506-23-2022 History of Present illness Narrative* Jorge Wilson MD - 02/06/2022 12:18 PM EDT Images from the original note were not included. SPINE SURGERY NEW PATIENT PCP: Douglas Will MD REFERRING PROVIDER: Ana Maria Amato DO SUBJECTIVE HISTORY OF PRESENT ILLNESS: Leyla Lambert is a 81 year old female presenting with spouse. Leyla complains of right leg pain after a knee surgery in May. She states she has numbness and tingling around her right knee. The pain is also sharp at times. She states she has had 8 surgeries on her right knee and after this last one is when all of the pain started. There is no clear distribution of pain in any pattern. She states she has back pain but the location varies. Recently she hashad a cardiac stent placed, she also has a pacemaker that is not MRI compatible. She takes tylenol for the pain. CT lumbar spine shows 5% loss of height at T12, an age-indeterminate compression deformity. PAIN EVALUATION 02/06/2022 1153 Pain Level: 8 Pain Location: Back Rt leg neuropathy pain Description: Burning;Aching;Sharp;Shooting Duration Units: Months Frequency: Continuous Pain Radiation: right leg pain with unclear dermatomal pattern Aggravating Factors: Lifting, Walking Alleviating Factors: Medications AMBULATORY STATUS: Impaired Community Distances ANTIPLATELET OR ANTICOAGULATION STATUS: Yes plavix and coumadin PREVIOUS CONSERVATIVE TREATMENTS: Analgesics PREVIOUS SPINAL SURGERY: None ACTIVE PROBLEM LIST Painful Total Knee Replacement (Hcc) Atrial Fibrillation (Hcc) Coronary Atherosclerosis Other Pulmonary Embolism and Infarction Essential Hypertension, Benign Malignant Neoplasm of Breast (Female), Unspecified Site Copd, Group D, By Gold 2017 Classification (Hcc) Status Post Knee Surgery History of Pulmonary Embolism Mixed Simple and Mucopurulent Chronic Bronchitis (Hcc) Prosthetic Joint Infection (Hcc) Malnutrition of Mild Degree (Hcc) Effusion of Left Knee Hypothyroidism Infection Malnutrition of Moderate Degree (Hcc) Karlee (Acute Kidney Injury) (Hcc) Retroperitoneal Hematoma Hypokalemia PAST MEDICAL HISTORY Diagnosis Date Acute kidney injury (HCC) Atrial fibrillation (HCC) dx 2009 Chronic airway obstruction, not elsewhere classified Chronotropic incompetence s/p pacemaker placement CKD (chronic kidney disease) Coronary atherosclerosis of unspecified type of vessel, [place] or graft s/p stents x 2 to LAD 03/10/08, s/p KAIN to mid-LAD 03/2017 Dysautonomia orthostatic hypotension syndrome Essential hypertension, benign Malignant neoplasm of breast (female), unspecified site 1989,1991 s/p b/l massectomies CARISA (obstructive sleep apnea) Other and unspecified hyperlipidemia Other diseases of pharynx, not elsewhere classified(478.29) starting on CPAP 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 so has IVC filter placed PE (pulmonary thromboembolism) ([facility]) and DVT's 2007 s/p IVC filter 2007 Retroperitoneal hemorrhage Unspecified hypothyroidism PAST SURGICAL HISTORY Procedure Laterality Date ARTHROSCOPIC PATELLECTOMY/CAROL Right ARTHROSCOPY KNEE DIAGNOSTIC W/WO SYNOVIAL BX SPX Right 2014 Arthroscopy, knee ARTHRP KNE CONDYLE&PLATU MEDIAL&LAT COMPARTMENTS Right 2013 Knee replacement, total CHOLECYSTECTOMY MAST MODF RAD W/AX LYMPH NOD W/WO PECT/BOBBY MIN 1989,1991 bilateral MIDLINE INSERTION/CONSULT 06/20/2018 PAST SURGICAL HISTORY OF stent x 2 PAST SURGICAL HISTORY OF ivc filter VAGINAL HYSTERECTOMY UTERUS 250 GM/< FAMILY HISTORY Problem Relation Age of Onset COPD Father other (pulmonary embolism) Father post op Social History Tobacco Use Smoking status: Former Smoker Packs/day: 2.00 Years: 29.00 Pack years: 58.00 Types: Cigarettes Quit date: 08/17/1987 Years since quittin.4 Smokeless tobacco: Never Used Substance Use Topics Alcohol use: No Drug use: No ALLERGIES Allergen Reactions Acetaminophen-Codei* Unknown, GI Upset Holiday Other: See Comments sim [address] Intolerance itching Nickel Other: See Comments Seasonal Allergies Other: See Comments Latex Rash MEDICATIONS: celecoxib (CELEBREX) 200 mg capsule Take 200 mg by mouth. clopidogrel (PLAVIX) 75 mg tablet Take 1 tablet by mouth once daily. warfarin (COUMADIN) 5 mg tablet Take 5 mg by mouth. methylPREDNISolone (MEDROL, MAMADOU,) 4 mg Dose-Pack Do not use NSAIDS while on dose pack. Use as instructed on package mukopchmdgw-cgsyjdipz-zqzqilez (TRELEGY ELLIPTA) 100-62.5-25 mcg Inhale 1 Puff as instructed once daily. omeprazole (PRILOSEC) 40 mg capsule Take 40 mg by mouth once daily. doxycycline monohydrate 100 mg tablet Take 1 tablet by mouth twice daily. YOU WILL BEGIN DOXYCYCLINE ONCE YOUR IV ANTIBIOTICS ARE COMPLETED. fludrocortisone (FLORINEF) 0.1 mg tablet Take 0.1 mg by mouth once daily. levothyroxine (SYNTHROID) 100 mcg tablet Take 100 mcg by mouth. roflumilast (DALIRESP) 500 mcg tab Take 500 mcg by mouth once daily. traZODone (DESYREL) 150 mg tablet Take 1 tablet by mouth daily at bedtime. carbidopa-levodopa (SINEMET 25-100) 25-100 mg per tablet Take 1 tablet by mouth every morning. [DISCONTINUED] oxyCODONE IR (ROXICODONE) 5 mg immediate release tablet Take 1 tablet by mouth every6 hours as needed for pain for up to 7 days. for pain. calcium carbonate (TUMS) 500 mg chew Take 1 tablet by mouth twice daily. therapeutic multivitamin-minerals (THERA-M PLUS) 9 mg iron-400 mcg tablet Take 1 tablet by mouth once daily. ascorbic acid, vitamin C, (VITAMIN C) 500 mg tablet Take 1 tablet by mouth twice daily with meals for 21 doses. amLODIPine (NORVASC) 5 mg tablet Take 1 tablet by mouth once daily. enoxaparin (LOVENOX) 30 mg/0.3 mL injection Inject 0.3 mL subcutaneously once daily. aspirin, enteric coated (ECOTRIN LOW STRENGTH) 81 mg EC tablet Take 1 tablet by mouth once daily. hydrALAZINE (APRESOLINE) 25 mg tablet TAKE 1 TABLET BY MOUTH NEEDED EVERY 4 HOURS WHEN YOUR SYSTOLIC BLOOD PRESSURE IS ABOVE 180 MMHG TAKE DIRECTED REVIEW OF SYSTEMS: GENERAL: Denies fever, chills malaise and weight loss. CARDIOVASCULAR: Denies chest pain, history of A-fib, valvular disease, or pacemaker/ICD. RESPIRATORY: Denies SOB, sputum production, and hemoptysis. GI: Denies GI ulcers, inflammatory disease, or liver disease. MUSCULOSKELETAL: See HPI NEURO: Denies CVA, seizures, headaches. Patient Entered Questionnaires PROMIS Score Percentiles PROMIS Global Health Scale 07/02/2017 Physical Health Percentile 7 Mental Health Percentile 19* Percentiles provide an indication of how the patient's score ranks in relation to the general population. Higher percentile rankings indicate better function/quality of life. 50th percentile is the average of the general population and indicates half of respondents had a worse score. Depression Screening: PHQ-9 Self-Harm (Item 9) response options: 0 Not at all 1 Several days 2 More than half the days 3 Nearly every day PHQ-9 Levels: 0-4 No to mild depression 5-9 Mild depression 10-14 Moderate depression 15-19 Moderately severe depression 20-27 Severe depression OBJECTIVE: PHYSICAL EXAM Ht 160 cm (5' 3 ) Wt 56.3 kg (124 lb 1.6 oz) BMI 21.98 kg/m GENERAL APPEARANCE: Well nourished, well developed, and no apparent distress. NEURO PSYCH: Patient oriented to person, place, and time. Mood pleasant. Benign affect. MUSCULOSKELETAL VISUAL INSPECTION CERVICAL: WNL THORACIC: WNL LUMBAR: WNL MOTOR: 5/5 in all muscle groups. except right hip flexion and right knee extension 4/5 SENSORY: Normal sensory exam GAIT: uses rollator Cast on left wrist. Right knee swollen. Non-tender to palpation. NEURO TESTS: None DATA REVIEW [facility] records independently reviewed Imaging and outside records independently reviewed Images independently reviewed with the patient ASSESSMENT/PLAN (M48.061) Spinal stenosis of lumbar region, unspecified whether neurogenic claudication present (M54.16) Lumbar radiculopathy, chronic (M48.062) Spinal stenosis of lumbar region with neurogenic claudication Leyla Lambert is a 81 year old female presenting with spouse. Leyla complains of right leg pain for few years which is worsened after a knee surgery in May. She states she has numbness and tingling around her right knee. The pain is also sharp at times. She states she has had 8 surgeries on her right knee and after this last one is when all of the pain started. There is no clear radicular distribution of pain. She states she has back pain but the location varies. Recently she has had a cardiac stent placed, she also has a pacemaker that is not MRI compatible. She takes tylenol for the pain. She received epidural injection in the past for her lumbar spine without any pain relief. She also had fracture of left upper extremity recently after a fall. On cast. Examination showed right knee swelling. Mild warmth over right knee. Tenderness over right knee is present. Passive movement of right knee is painful. CT lumbar spine shows 5% loss of height at T12, an age-indeterminate compression deformity. No significant canal or foraminal stenosis on lumbar spine. Discussed clinical, imaging finding. Showed images and explained in detail. I think her clinical symptom may be due to right knee pathology. Imaging showed no significant canal or foraminal stenosis.Considering no radicular nature of pain, epidural injection in the past did not offer any pain relief, I do not think surgery is indicated at present for lumbar spine. BMD ordered to rule out osteoporosis. Recommended osteoporosis treatment according to primary care physician Recommended follow-up with orthopedic surgeon. Recommended follow-up with pain management/spine intervention Follow-up in spine surgery clinic as needed The majority of the visit was spent counseling and/or coordinating care for the patient. The patient was counseled regarding lower back pain, right knee pain, right leg pain, lumbar spondylosis.. Total face to face time was 45 minutes. SIGNATURE: Jorge Wilson MD PATIENT NAME: Leyla Lambert DATE: February 06, 2022 TIME: 12:18 PM PAGER: documented in [facility] History of Present illness Narrative* Nighat Bazzi, [facility] - 01/29/2022 10:40 AM EDT [facility] Medication Management ANTICOAGULATION Referring Provider: Dr. Moore GOAL INR: 2-3 TODAY'S INR: 4.1 WARFARIN Dosage: Patient will hold warfarin today, then decrease warfarin to 5 mg po every MWF; 7.5mg po all other days INR (no units) Date Value 01/29/2022 4.1 01/01/2022 2.3 11/25/2021 2.7 2021 1.6 07/08/2021 1.9 05/09/2021 1.6 03/19/2021 2.4 Medication changes: No changes Notes: Fingerstick INR drawn per clinic protocol. Patient states no visible blood in urine and no black tarry stool. Denies any missed doses of warfarin. No change in other maintenance medications jessica diet. Will recheck INR in 2 weeks. Patient acknowledges working in consult agreement with pharmacist as referred by his/her physician. Patient fell in her bathroom approximately 4 weeks ago. She has a fractured left wrist (in a cast).She also complains of spine pain and reports that she will be [facility]. Patient also reports she is scheduled for hiatal hernia surgery on 02/28/22 at [facility]. For Pharmacy Admin Tracking Only Intervention Detail: Adherence Monitorin and Dose Adjustment: 2, reason: Therapy Optimization Total # of Interventions Recommended: 3 Total # of Interventions Accepted: 3 Time Spent (min): 30 Nighat Bazzi RPH documented in this encounterBON [facility]FP[facility] Work Phone: [phone] Hospital Discharge instructions* Patient Instructions* Nighat Bazzi RPH - 01/29/2022 10:40 AM EDT Please hold warfarin today. Decrease current dose of warfarin as instructed on dosing calendar provided - 5 mg every Thursday, Thursday and Thursday and 7.5 mg all other days. Return to clinic in 2 weeks. Continue to monitor urine and stool for signs and symptoms of bleeding. Please notify the clinic of any medication changes. Please remember to bring all medications (both prescription and OTC) to your next visit. Kindly notify the clinic if you are unable to make to your next appointment. documented in this encounterBON [facility] Phone: [phone] Hospital Discharge instructions Patient Education 01/28/2022 15:31:24 Overactive Bladder, Adult Overactive Bladder, Adult Overactive bladder refers to a condition in which a person has a sudden need to pass urine. The person may leak urine if he or she cannot get to the bathroom fast enough (urinary incontinence). A person with this condition may also wake up several times in the night to go to the bathroom. Overactive bladder is associated with poor nerve signals between your bladder and your brain. Your bladder may get the signal to empty before it is full. You may also have very sensitive muscles thatmake your bladder squeeze too soon. These symptoms might interfere with daily work or social activities. What are the causes? This condition may be associated with or caused by: Urinary tract infection. Infection of nearby tissues, such as the prostate. Prostate enlargement. Surgery on the uterus or urethra. Bladder stones, inflammation, or tumors. Drinking too much caffeine or alcohol. Certain medicines, especially medicines that get rid of extra fluid in the body (diuretics). Muscle or nerve weakness, especially from: ?A spinal cord injury. ?Stroke. ?Multiple sclerosis. ?Parkinson's disease. Diabetes. Constipation. What increases the risk? You may be at greater risk for overactive bladder if you: Are an older adult. Smoke. Are going through menopause. Have prostate problems. Have a neurological disease, such as stroke, dementia, Parkinson's disease, or multiple sclerosis (MS). Eat or drink things that irritate the bladder. These include alcohol, spicy food, and caffeine. Are overweight or obese. What are the signs or symptoms? Symptoms of this condition include: Sudden, strong urge to urinate. Leaking urine. Urinating 8 or more times a day. Waking up to urinate 2 or more times a night. How is this diagnosed? Your health care provider may suspect overactive bladder based on your symptoms. He or she will diagnose this condition by: A physical exam and medical history. Blood or urine tests. You might need bladder or urine tests to help determine what is causing your overactive bladder. You might also need to see a health care provider who specializes in urinary tract problems (urologist). How is this treated? Treatment for overactive bladder depends on the cause of your condition and whether it is mild or severe. You can also make lifestyle changes at home. Options include: Bladder training. This may include: ?Learning to control the urge to urinate by following a schedule that directs you to urinate at regular intervals (timed voiding). ?Doing Kegel exercises to strengthen your pelvic floor muscles, which support your bladder. Toning these muscles can help you control urination, even if your bladder muscles are overactive. Special devices. This may include: ?Biofeedback, which uses sensors to help you become aware of your body's signals. ?Electrical stimulation, which uses electrodes placed inside the body (implanted) or outside the body. These electrodes send gentle pulses of electricity to strengthen the nerves or muscles that control the bladder. ?Women may use a plastic device that fits into the vagina and supports the bladder (pessary). Medicines. ?Antibiotics to treat bladder infection. ?Antispasmodics to stop the bladder from releasing urine at the wrong time. ?Tricyclic antidepressants to relax bladder muscles. ?Injections of botulinum toxin type A directly into the bladder tissue to relax bladder muscles. Lifestyle changes. This may include: ?Weight loss. Talk to your health care provider about weight loss methods that would work best for you. ?Diet changes. This may include reducing how much alcohol and caffeine you consume, or drinking fluids at different times of the day. ?Not smoking. Do not use any products that contain nicotine or tobacco, such as cigarettes and e-cigarettes. If you need help quitting, ask your health care provider. Surgery. ?A device may be implanted to help manage the nerve signals that control urination. ?An electrode may be implanted to stimulate electrical signals in the bladder. ?A procedure may be done to change the shape of the bladder. This is done only in very severe cases. Follow these instructions at home: Lifestyle Make any diet or lifestyle changes that are recommended by your health care provider. These may include: ?Drinking less fluid or drinking fluids at different times of the day. ?Cutting down on caffeine or alcohol. ?Doing Kegel exercises. ?Losing weight if needed. ?Eating a healthy and balanced diet to prevent constipation. This may include: ?Eating foods that are high in fiber, such as fresh fruits and vegetables, whole grains, and beans. ?Limiting foods that are high in fat and processed sugars, such as fried and sweet foods. General instructions Take oalc-lno-qjoybgg and prescription medicines only as told by your health care provider. If you were prescribed an antibiotic medicine, take it as told by your health care provider. Do notstop taking the antibiotic even if you start to feel better. Use any implants or pessary as told by your health care provider. If needed, wear pads to absorb urine leakage. Keep a journal or log to track how much and when you drink and when you feel the need to urinate. This will help your health care provider monitor your condition. Keep all follow-up visits as told by your health care provider. This is important. Contact a health care provider if: You have a fever. Your symptoms do not get better with treatment. Your pain and discomfort get worse. You have more frequent urges to urinate. Get help right away if: You are not able to control your bladder. Summary Overactive bladder refers to a condition in which a person has a sudden need to pass urine. Several conditions may lead to an overactive bladder. Treatment for overactive bladder depends on the cause and severity of your condition. Follow your health care provider's instructions about lifestyle changes, doing Kegel exercises, keeping a journal, and taking medicines. This information is not intended to replace advice given to you by your health care provider. Make sure you discuss any questions you have with your health care provider. Document Released: 05/30/2010 Document Revised: 11/24/2019 Document Reviewed: 08/19/2018 [employer] Patient Education 2020 [employer]. Follow Up Care 01/22/2022 09:30:25 With:KATHE CLARK, Isauro More, URL Address: [address] [place], [place] [id number]- When:3 months [facility] 06-08-2022 Chief complaint Narrative - Reported* An interactive audio and video telecommunication system which permits real time communications between the patient (at the originating site) and provider (at the distant site) was utilized to providethis telehealth service. * 81 yr old female calls and leaves tearful VM that is unable to eat, swallow and needs advice/assistance. Dr. Julio agreeable to seeing 01/22/22 for follow up. Last visit 06/2022, with planned HHR surgery canceled 12/2021 related to blood thinners / MA with stent placement. 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 couple weeks ago fell and broke wrist ortho with cast on no surgery needed just casted it left. Back still a little sore but not issues. Surgery knee in May ever sine terrible nerve pain / Ted says not coming from knee coming from spine - epidural done to spine did not help at all - he isnot calling back back found spine 02/06/22 first appt. open hearth worker said she had stent and can have surgery after the . she can stop the plavix then. * Spoke with Ms. Lambert on 01/21/22, she is a 81 year old female presenting for follow up visit with Dr. Julio on 01/22/22 - Last visit 06/2021 with planned HHR surgery canceled 12/2021. Verbalizes long standing history of: GERD/HHR symptoms. * PM Hx: LPRD - Dysphagia - Esophageal Dysmotility - Thrombophilia - CHF - Pacemaker - MA/Stent Placed - Frequent Falls (Last couple weeks ago, fractured wrist - no surgery in cast only currently) - Chronic Knee Infection Post Procedure ( ATB for life ) - Chronic Back Pain * Current Lifestyle: Daily Protein Intake= not much Daily Fluid Intake= not much Eating patterns=3 meals per day no snacks. Energy Levels= okay Exercise Habits= not much . * CURRENT DIET: Soft Foods Only: mashed potatoes ( a lot preventing me from loosing wt ) at least onecup each meal, some soft veggies. No difficulty swallowing these, lots times can swallow but then it feels like stuck back of throat, I have to burp, try to drink to get food to go lower. Water just as bad, it comes back up too, my mouth is completely full of saliva after each bite, totally full * Difficulty taking meds at nightthey go down but then water may come back up or sticks, water/pills doesn't bother me in AM, lay down at night it s the worse, keep trying to swallow and swallow. Sometimes wakes up during the night due to (excessive) saliva. * Verbalizes current weight as 120 LBS. * Medication and allergy list reviewed & updated. Adult Risk Screening completed. 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 prefers virtual but may be just a call not sure if can make Zoom work on her new smart phone will practice today. * *educated small frequent meals vs 3 large meals (1 cup mashed potatoes at a time), small bites/sips, chew well, head of bed up at night (blocks or pillows), try to take meds 1-2 hrs prior to bedtime vs as is getting into bed and talk to MD to see if can move more meds to AM vs HS if tolerates better in AM. [facility] [place] Work Phone: 1([phone]) 306-742105-18-2022 History of Present illness Narrative* Nighat Bazzi [facility] - 01/01/2022 10:40 AM EDT [facility] Medication Management ANTICOAGULATION Referring Provider: Yoli GOAL INR: 2-3 TODAY'S INR: 2.3 WARFARIN Dosage: Continue warfarin 5 mg po every Thursday and Thursday; 7.5 mg po all other days INR (no units) Date Value 01/01/2022 2.3 11/25/2021 2.7 2021 1.6 07/08/2021 1.9 05/09/2021 1.6 03/19/2021 2.4 02/20/2021 2.6 Medication changes: No changes Notes: Fingerstick INR drawn per clinic protocol. Patient states no visible blood in urine and no black tarry stool. Denies any missed doses of warfarin. No change in other maintenance medications jessica diet. Will recheck INR in 4 weeks. Patient acknowledges working in consult agreement with pharmacist as referred by his/her physician. Hiatal hernia surgery cancelled due to recent stent placement on 11/12/21 - inability to stop Plavixprior to procedure. Earliest stop date is 02/12/22 but preferable after 05/15/22 if possible (per cardiology note). For Pharmacy Admin Tracking Only Intervention Detail: Adherence Monitorin Total # of Interventions Recommended: 1 Total # of Interventions Accepted: 1 Time Spent (min): 20 Nighat Bazzi RPH documented in this encounterTerraGo Technologies Phone: [phone] Hospital Discharge instructions* Patient Instructions* Nighat Bazzi RPH - 01/01/2022 10:40 AM EDT Continue current dose of warfarin as instructed on dosing calendar provided - 5 mg every Thursday andThursday and 7.5 mg all other days. Return to clinic in 4 weeks. Continue to monitor urine and stool for signs and symptoms of bleeding. Please notify the clinic of any medication changes. Please remember to bring all medications (both prescription and OTC) to your next visit. Kindly notify the clinic if you are unable to make to your next appointment. documented in this encounterTerraGo Technologies Phone: [phone]) 338-129205-16-2022 Miscellaneous Notes* Telephone Encounter - Tatiana Juarez MA - 12/30/2021 12:48 PM EDT Called and spoke with patient. Gave patient results of CT scan as noted below. Advised patient thatwe will call with X-ray results when they are received. Patient understood and agreed. * Telephone Encounter - Tatiana Juarez MA - 12/30/2021 12:48 PM EDT ----- Message from Ana Maria Amato DO sent at 12/30/2021 12:08 PM EDT ----- CT scan shows mild degenerative changes in your lumbar spine [facility] NoteHNO ID: [id number] Author: RT Nikkie(R) Service: Radiology Author Type: Drying Rack Changer Type: Progress Notes Filed: 12/30/2021 9:48 AM Note Text: Radiology Service Progress Note PATIENT NAME: Leyla Lambert DATE OF SERVICE: December 30, 2021 TIME: 9:47 AM PATIENT IDENTITY VERIFICATION COMPLETED USING TWO (2) IDENTIFIERS: Name and Date of confirmed by patient verbally and Name and Date of confirmed by identification band. FALL SCREENING: Has the patient had 2 falls in the last year or 1 fall with injury or currently using an Ambulatory Assistive Device (Walker, Cane, Wheelchair, Crutches, etc.)? Yes, Patient High Risk for Falls What interventions were put in place to prevent falls during this visit? Yellow Falls Risk Wristband Applied, Instructed Patient to Call for Help if Needed, Offered Assistance with Transfers/Clothing, Instructed Patient to Remain Seated (Not on Exam Table) Until Exam and Increased Observations by Caregivers PATIENT GENDER DATA: Female. status: : No status: NO. PATIENT RELEVANT IMPLANT DATA REVIEWED: Not Applicable RADIOLOGY DEPARTMENT: General X-ray: Exam(s) Completed: Spine X-Ray(s): Lumbar AP / LAT / L5-S1 Upper Extremity X-Ray(s): Forearm, left and Wrist, left PERIPHERAL IV DATA: Not applicable SIGNED BY: RT Nikkie(R) December 30, 2021 9:47 [id number] Miscellaneous Notes* [facility] - RT Caitie(R) - 12/30/2021 10:00 AM EDT Radiology Service Progress Note PATIENT NAME: Leyla Lambert DATE OF SERVICE: December 30, 2021 TIME: 9:55 AM PATIENT IDENTITY VERIFICATION COMPLETED USING TWO (2) IDENTIFIERS: Name and Date of confirmedby patient verbally and Name and Date of confirmed by identification band. FALL SCREENING: Has the patient had 2 falls in the last year or 1 fall with injury or currently using an Ambulatory Assistive Device (Walker, Cane, Wheelchair, Crutches, etc.)? No PATIENT GENDER DATA: Female. status: : No status: NO. PATIENT RELEVANT IMPLANT DATA REVIEWED: Not Applicable RADIOLOGY DEPARTMENT: CT; Exam(s) Completed: Spine PERIPHERAL IV DATA: Not applicable SIGNED BY: RT Caitie(R) December 30, 2021 9:55 AM * Result QuickNote - Ana Maria Amato DO - 12/30/2021 10:[address] scan shows mild degenerative changes in your lumbar spine documented in this encounterHigh[facility]05-16-2022 History of Present illness Narrative* RT Nikkie(R) - 12/30/2021 9:50 AM EDT Radiology Service Progress Note PATIENT NAME: Leyla Lambert DATE OF SERVICE: December 30, 2021 TIME: 9:47 AM PATIENT IDENTITY VERIFICATION COMPLETED USING TWO (2) IDENTIFIERS: Name and Date of confirmedby patient verbally and Name and Date of confirmed by identification band. FALL SCREENING: Has the patient had 2 falls in the last year or 1 fall with injury or currently using an Ambulatory Assistive Device (Walker, Cane, Wheelchair, Crutches, etc.)? Yes, Patient High Riskfor Falls What interventions were put in place to prevent falls during this visit? [place] Falls Risk Wristband Applied, Instructed Patient to Call for Help if Needed, Offered Assistance with Transfers/Clothing, Instructed Patient to Remain Seated (Not on Exam Table) Until Exam and Increased Observations byCaregivers PATIENT GENDER DATA: Female. status: : No status: NO. PATIENT RELEVANT IMPLANT DATA REVIEWED: Not Applicable RADIOLOGY DEPARTMENT: General X-ray: Exam(s) Completed: Spine X-Ray(s): Lumbar AP / LAT / L5-S1 Upper Extremity X-Ray(s): Forearm, left and Wrist, left PERIPHERAL IV DATA: Not applicable SIGNED BY: RT Nikkie(R) December 30, 2021 9:47 AM documented in this encounterHigh[facility]05-16-2022 History of Present illness Narrative* Ana Maria Amato, - 12/30/2021 8:49 AM EDT SPINE CARE PATH LOW BACK PAIN: CHRONIC FOLLOW UP SUBJECTIVE HISTORY OF PRESENT ILLNESS: Reason for Visit: low back pain Leyla Lambert is seen for 2 year follow up. She is feeling worse. The distribution of symptoms is changed - pain is now located in right leg pain/numbness since having knee surgery in May 2021. Patient fell this am while attempting to sit on the toilet, missed toilet and fell on floor. Landed o n buttocks. Now has low back and left hand pain. Walks with rollator. Pain is currently 8 out of 10. Interim treatment has included Celebrex, Tylenol. PREVIOUS TREATMENTS IN THE LAST SIX MONTHS Active conservative therapy in the last six months (see below) 1. Physical therapy: No 2. Home exercise program after PT:No 3. A physician supervised home exercise program (HEP): No 4. Insurance Biller: Yes Passive conservative therapy in the last six months (see below) 1. NSAIDS: Celebrex - last dose this morning. Takes bid 2. Prescription pain medication: None 3. Acupuncture: No 4. Tens unit: No Adherence with treatment has been fair . Adverse Effects: None Interim studies Obtained and Reviewed: X-rays YELLOW & BLUE FLAGS No-Neg Attitude; Back Pain is Disabling No-Avoiding Activity (for Fear of Pain) No-Depression or Anxiety Disorders No-Social Problems No-Substance Use Disorder No-Job Dissatisfaction No-Financial Disincentives Patient Entered Questionnaires PROMIS Score Percentiles PROMIS Global Health Scale 07/02/2017 Physical Health Percentile 7 Mental Health Percentile 19* Percentiles provide an indication of how the patient's score ranks in relation to the general population. Higher percentile rankings indicate better function/quality of life. 50th percentile is the average of the general population and indicates half of respondents had a worse score. Depression Screening: PHQ-9 Self-Harm (Item 9) response options: 0 Not at all 1 Several days 2 More than half the days 3 Nearly every day PHQ-9 Levels: 0-4 No - mild depression 5-9 Mild depression 10-14 Moderate depression 15-19 Moderately severe depression 20-27 Severe depression ACTIVE PROBLEM LIST Painful Total Knee Replacement (Hcc) Atrial Fibrillation (Hcc) Coronary Atherosclerosis Other Pulmonary Embolism and Infarction Essential Hypertension, Benign Malignant Neoplasm of Breast (Female), Unspecified Site Copd, Group D, By Gold 2017 Classification (Hcc) Status Post Knee Surgery History of Pulmonary Embolism Mixed Simple and Mucopurulent Chronic Bronchitis (Hcc) Prosthetic Joint Infection (Hcc) Malnutrition of Mild Degree (Hcc) Effusion of Left Knee Hypothyroidism Infection Malnutrition of Moderate Degree (Hcc) Karlee (Acute Kidney Injury) (Hcc) Retroperitoneal Hematoma Hypokalemia PAST MEDICAL HISTORY Diagnosis Date Acute kidney injury (HCC) Atrial fibrillation (HCC) dx 2009 Chronic airway obstruction, not elsewhere classified Chronotropic incompetence s/p pacemaker placement CKD (chronic kidney disease) Coronary atherosclerosis of unspecified type of vessel, [place] or graft s/p stents x 2 to LAD 03/10/08, s/p KAIN to mid-LAD 03/2017 Dysautonomia orthostatic hypotension syndrome Essential hypertension, benign Malignant neoplasm of breast (female), unspecified site s/p b/l massectomies CARISA (obstructive sleep apnea) Other and unspecified hyperlipidemia Other diseases of pharynx, not elsewhere classified(478.29) starting on CPAP 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 so has IVC filter placed PE (pulmonary thromboembolism) ([facility]) and DVT's 2007 s/p IVC filter 2008 Retroperitoneal hemorrhage Unspecified hypothyroidism PAST SURGICAL HISTORY Procedure Laterality Date ARTHROSCOPIC PATELLECTOMY/CAROL Right ARTHROSCOPY KNEE DIAGNOSTIC W/WO SYNOVIAL BX SPX Right 2014 Arthroscopy, knee ARTHRP KNE CONDYLE&PLATU MEDIAL&LAT COMPARTMENTS Right 2013 Knee replacement, total CHOLECYSTECTOMY MAST MODF RAD W/AX LYMPH NOD W/WO PECT/BOBBY MIN 1989,1991 bilateral MIDLINE INSERTION/CONSULT 06/20/2018 PAST SURGICAL HISTORY OF stent x 2 PAST SURGICAL HISTORY OF ivc filter VAGINAL HYSTERECTOMY UTERUS 250 GM/< Social History Tobacco Use Smoking status: Former Smoker Packs/day: 2.00 Years: 29.00 Pack years: 58.00 Types: Cigarettes Quit date: 08/17/1987 Years since quittin.3 Smokeless tobacco: Never Used Substance Use Topics Alcohol use: No Drug use: No FAMILY HISTORY Problem Relation Age of Onset COPD Father other (pulmonary embolism) Father post op ALLERGIES Allergen Reactions Acetaminophen-Codei* Unknown, GI Upset Holiday Other: See Comments sim [address] Intolerance itching Nickel Other: See Comments Seasonal Allergies Other: See Comments Latex Rash CURRENT MEDICATIONS: celecoxib (CELEBREX) 200 mg capsule Take 200 mg by mouth. clopidogrel (PLAVIX) 75 mg tablet Take 1 tablet by mouth once daily. warfarin (COUMADIN) 5 mg tablet Take 5 mg by mouth. lkahnusfalp-snnldpdov-vseikbzf (TRELEGY ELLIPTA) 100-62.5-25 mcg Inhale 1 Puff as instructed once daily. doxycycline monohydrate 100 mg tablet Take 1 tablet by mouth twice daily. YOU WILL BEGIN DOXYCYCLINE ONCE YOUR IV ANTIBIOTICS ARE COMPLETED. fludrocortisone (FLORINEF) 0.1 mg tablet Take 0.1 mg by mouth once daily. hydrALAZINE (APRESOLINE) 25 mg tablet TAKE 1 TABLET BY MOUTH NEEDED EVERY 4 HOURS WHEN YOUR SYSTOLIC BLOOD PRESSURE IS ABOVE 180 MMHG TAKE DIRECTED levothyroxine (SYNTHROID) 100 mcg tablet Take 100 mcg by mouth. roflumilast (DALIRESP) 500 mcg tab Take 500 mcg by mouth once daily. traZODone (DESYREL) 150 mg tablet Take 1 tablet by mouth daily at bedtime. carbidopa-levodopa (SINEMET 25-100) 25-100 mg per tablet Take 1 tablet by mouth every morning. [DISCONTINUED] oxyCODONE IR (ROXICODONE) 5 mg immediate release tablet Take 1 tablet by mouth every6 hours as needed for pain for up to 7 days. for pain. calcium carbonate (TUMS) 500 mg chew Take 1 tablet by mouth twice daily. therapeutic multivitamin-minerals (THERA-M PLUS) 9 mg iron-400 mcg tablet Take 1 tablet by mouth once daily. ascorbic acid, vitamin C, (VITAMIN C) 500 mg tablet Take 1 tablet by mouth twice daily with meals for 21 doses. amLODIPine (NORVASC) 5 mg tablet Take 1 tablet by mouth once daily. enoxaparin (LOVENOX) 30 mg/0.3 mL injection Inject 0.3 mL subcutaneously once daily. omeprazole (PRILOSEC) 40 mg capsule Take 40 mg by mouth once daily. aspirin, enteric coated (ECOTRIN LOW STRENGTH) 81 mg EC tablet Take 1 tablet by mouth once daily. OBJECTIVE PHYSICAL EXAM: Ht 160 cm (5' 3 ) Wt 54.4 kg (120 lb) BMI 21.26 kg/m SIGNATURE: Ana Maria Amato DO PATIENT NAME: Leyla Lambert DATE: December 30, 2021 TIME: 8:49 AM I have reviewed the history . HPI explored in detail with patient and edited as necessary. Pt was seen by me and carvalho findings were confirmed. Pt presents for follow up today. Pt states that she fell this am and his having a lot of lt wrist/ forearm pain. Also has LBP. Has been on coumadin and Plavix. Had lumbar epidural injection in [place] without much gains. Would consider surgery for her rt leg pain that feels like electric shocks. Is awaiting f/u with Dr. Jean. Physical Exam: GENERAL APPEARANCE: WNWH, moderate distress NEURO - Alert and oriented, cooperative, answers questions appropriately SPEECH - No slurring noted. HEAD - Normal cephalic, Atraumatic EYES - Extra ocular movement intact, no conjunctivitis, no nystagmus. EARS - No drainage noted, pinna intact NOSE - No epistaxis noted THROAT - No thyromegaly, no gross lymphadenopathy GAIT - using RW MOTOR - no new motor weakness in b/l quads. SENSORY - No new sensory complaints unless noted earlier in notes. Mild pain over lumbosacral junction with palpation. Mild pain over lt distal forearm over radial aspect. ROS: Musculoskeltal exam as above. No bowel or bladder incontinence. Denies SOB Radiology: Reports reviewed. Rt knee X-rays: 11/27/21 Report available in computer. Right knee arthroplasty without interval change or new complication. Lumbar X-rays : 08/12/21 Report available in computer. Lumbar intervertebral disk spaces are preserved. There are small anterior osteophytes at L2-3, L3-4, and L4-5. Articular facets appear aligned. There are mild degenerative changes to the articular facets at L4-5. Pedicles appear grossly intact at all levels bilaterally by plain x-ray. There is inferior vena cava filter. There is partial visualization of cardiac pacemaker leads. Rt hip/ pelvis X-rays: 08/12/21 Report available in computer. No pelvic or right hip fracture. There is inferior vena cava filter. Thoracic and lumbar spine X-rays:11/23/19. Report available in computer. Moderate apex right scoliosis centered at L2-3. Mild to moderate facet degenerative changes in the lower lumbar spine. Mild to moderate multilevel degenerative disc disease in the midthoracic spine with disc height narrowing and anterior endplate osteophytes. IVC filter at the L4 level. Marked ather osclerotic calcifications in the abdominal aorta. Partially visualized pacemaker wires in the chest. Impression: see diagnosis. Plan: Discussed various options including non-surgical and surgical options extensively. Discussed pathology and the use of medications also. Pt would like to consider surgical options. Has a PM, on coumadin and Plavix. Epidural in [place] did not help per pt. Would consider surgical options. CT of lumbar spine ordered. Medrol dose pack. Use as directed. Do not use any additional NSAIDS or Lux-2 inhibitors. Call us ifany unusual side effects. Lumbar X-rays and lt wrist/ forearm X-rays ordered. Guarded with overall gains. The majority of the visit was spent counseling and/or coordinating care for the patient on the dateof the service which included preparing to see the patient, [id number] patient care, completing clinical documentation, obtaining and/or reviewing separately obtained history, performing a medically appropriate examination, and educating the patient/family/caregiver and ordering medications, tests, or procedures. Follow up with primary physician for routine care, blood pressure evaluation, labwork, and physicalexam as scheduled as well as for any other medical concerns. I have answered all the questions regarding their diagnosis, care and treatment plan to patients satisfaction during today's visit. Pt verbalizes understanding of current diagnosis and treatment plan. [facility] in [facility] Hospital Discharge instructions Patient Education 12/23/2021 14:53:25 Urinary Incontinence Urinary Incontinence Urinary incontinence refers to a condition in which a person is unable to control where and when topass urine. A person with this condition will urinate when he or she does not mean to (involuntarily). What are the causes? This condition may be caused by: Medicines. Infections. Constipation. Overactive bladder muscles. Weak bladder muscles. Weak pelvic floor muscles. These muscles provide support for the bladder, intestine, and, in women,the uterus. Enlarged prostate in men. The prostate is a gland near the bladder. When it gets too big, it can pinch the urethra. With the urethra blocked, the bladder can weaken and lose the ability to empty properly. Surgery. Emotional factors, such as anxiety, stress, or post-traumatic stress disorder (PTSD). Pelvic organ prolapse. This happens in women when organs shift out of place and into the vagina. This shift can prevent the bladder and urethra from working properly. What increases the risk? The following factors may make you more likely to develop this condition: Older age. Obesity and physical inactivity. and childbirth. Menopause. Diseases that affect the nerves or spinal cord (neurological diseases). Long-term (chronic) coughing. This can increase pressure on the bladder and pelvic floor muscles. What are the signs or symptoms? Symptoms may vary depending on the type of urinary incontinence you have. They include: A sudden urge to urinate, but passing urine involuntarily before you can get to a bathroom (urge incontinence). Suddenly passing urine with any activity that forces urine to pass, such as coughing, laughing, exercise, or sneezing (stress incontinence). Needing to urinate often, but urinating only a small amount, or constantly dribbling urine (overflow incontinence). Urinating because you cannot get to the bathroom in time due to a physical disability, such as arthritis or injury, or communication and thinking problems, such as Alzheimer disease (functional incontinence). How is this diagnosed? This condition may be diagnosed based on: Your medical history. A physical exam. Tests, such as: ?Urine tests. ?X-rays of your kidney and bladder. ?Ultrasound. ?CT scan. ?Cystoscopy. In this procedure, a health care provider inserts a tube with a light and camera (cystoscope) through the urethra and into the bladder in order to check for problems. ?Urodynamic testing. These tests assess how well the bladder, urethra, and sphincter can store and release urine. There are different types of urodynamic tests, and they vary depending on what the test is measuring. To help diagnose your condition, your health care provider may recommend that you keep a log of when you urinate and how much you urinate. How is this treated? Treatment for this condition depends on the type of incontinence that you have and its cause. Treatment may include: Lifestyle changes, such as: ?Quitting smoking. ?Maintaining a healthy weight. ?Staying active. Try to get 150 minutes of moderate-intensity exercise every week. Ask your health care provider which activities are safe for you. ?Eating a healthy diet. ?Avoid high-fat foods, like fried foods. ?Avoid refined carbohydrates like white bread and white rice. ?Limit how much alcohol and caffeine you drink. ?Increase your fiber intake. Foods such as fresh fruits, vegetables, beans, and whole grains are healthy sources of fiber. Pelvic floor muscle exercises. Bladder training, such as lengthening the amount of time between bathroom breaks, or using the bathroom at regular intervals. Using techniques to suppress bladder urges. This can include distraction techniques or controlled breathing exercises. Medicines to relax the bladder muscles and prevent bladder spasms. Medicines to help slow or prevent the growth of a man's prostate. Botox injections. These can help relax the bladder muscles. Using pulses of electricity to help change bladder reflexes (electrical nerve stimulation). For women, using a medical records library professor to prevent urine leaks. This is a small, tampon-like, disposable device that is inserted into the urethra. Injecting collagen or carbon beads (bulking agents) into the urinary sphincter. These can help thicken tissue and close the bladder opening. Surgery. Follow these instructions at home: Lifestyle Limit alcohol and caffeine. These can fill your bladder quickly and irritate it. Keep yourself clean to help prevent odors and skin damage. Ask your doctor about special skin creams and cleansers that can protect the skin from urine. Consider wearing pads or adult diapers. Make sure to change them regularly, and always change them right after experiencing incontinence. General instructions Take [id number] and prescription medicines only as told by your health care provider. Use the bathroom about every 3 4 hours, even if you do not feel the need to urinate. Try to empty your bladder completely every time. After urinating, wait a minute. Then try to urinate again. Make sure you are in a relaxed position while urinating. If your incontinence is caused by nerve problems, keep a log of the medicines you take and the times you go to the bathroom. Keep all follow-up visits as told by your health care provider. This is important. Contact a health care provider if: You have pain that gets worse. Your incontinence gets worse. Get help right away if: You have a fever or chills. You are unable to urinate. You have redness in your groin area or down your legs. Summary Urinary incontinence refers to a condition in which a person is unable to control where and when topass urine. This condition may be caused by medicines, infection, weak bladder muscles, weak pelvic floor muscles, enlargement of the prostate (in men), or surgery. The following factors increase your risk for developing this condition: older age, obesity, and childbirth, menopause, neurological diseases, and chronic coughing. There are several types of urinary incontinence. They include urge incontinence, stress incontinence, overflow incontinence, and functional incontinence. This condition is usually treated first with lifestyle and behavioral changes, such as quitting smoking, eating a healthier diet, and doing regular pelvic floor exercises. Other treatment options include medicines, bulking agents, medical devices, electrical nerve stimulation, or surgery. This information is not intended to replace advice given to you by your health care provider. Make sure you discuss any questions you have with your health care provider. Document Released: 09/10/2005 Document Revised: 08/13/2018 Document Reviewed: 11/12/2017 [employer] Patient Education 2020 [employer]. Follow Up Care 11/20/2021 13:31:41 With:KATHE CLARK, Isauro More, URL Address: [address] [place] [address]- When: Unknown [facility] [id number] History of Present illness Narrative* Sakina Chau - 12/02/2021 1:48 PM EDT PT ASSESSMENT - CASTING ROOM Leyla presents for Application of brace. Applied knee support to Right knee Patient has been instructed in Care and proper application of brace.. Sakina Chau Beeper: documented in [facility] History of Present illness Narrative* Nguyễn Jean MD - 11/27/2021 12:55 PM EDT Nguyễn Jean [address] [facility] [id number] Leyla Lambert is a 81 year old female that returns today to follow up/discuss results of their right knee pain. She underwent I&D polyexchange back in May 2021. She complains now of electrical shooting-like pains down her leg. She denies any constitutional symptoms. Of note, she did have astent placed in her heart at the end of October a few weeks ago. Otherwise she is feeling okay. The kn ee has been warm to the touch. She states that warms up and cools off on a regular basis. Pain is anteriorly based all around the knee and some down her giron. Exam: She is alert, oriented and in no acute distress. She is pleasant today. She is here with her . She cannot fully extend her knee. She has about a 20 degree lag. She has some warmth in theknee. There is no erythema. Pain tender with palpation globally around her knee. The knee is stablethroughout range of motion. Movement of her hip does cause some of her pain but any movement of the leg really causes pain in the knee. X-rays today reveal a well fixed stemmed knee revision unchanged from previous films. ESr and CRP Recommend f/u with spine for eval RTC 3 mos I personally evaluated this patient and agree with the note from the nurse/resident/fellow including PMH, PSH, SH, meds, allergies, and review of systems. I completed the HPI and performed the physical exam. Additionally I reviewed available imaging and wrote my interpretation. I wrote the Assessment and Plan. documented in this encounterHigh[facility]04-13-[facility]22 History of Present illness Narrative* Manny Gillespie, RT(R) - 11/27/2021 11:25 AM EDT Radiology Service Progress Note PATIENT NAME: Leyla Lambert DATE OF SERVICE: November 27, 2021 TIME: 11:36 AM PATIENT IDENTITY VERIFICATION COMPLETED USING TWO (2) IDENTIFIERS: Name and Date of confirmedby patient verbally. FALL SCREENING: Has the patient had 2 falls in the last year or 1 fall with injury or currently using an Ambulatory Assistive Device (Walker, Cane, Wheelchair, Crutches, etc.)? Yes, Patient High Riskfor Falls What interventions were put in place to prevent falls during this visit? [place] Falls Risk Wristband Applied and Increased Observations by Caregivers PATIENT GENDER DATA: Female. status: : No status: NO. PATIENT RELEVANT IMPLANT DATA REVIEWED: Not Applicable RADIOLOGY DEPARTMENT: General X-ray: Exam(s) Completed: Lower Extremity X- Ray(s): Knee, AP / Lat / Merchant Right and Wt. Bearing PERIPHERAL IV DATA: Not applicable SIGNED BY: RT Vega(R) November 27, 2021 11:36 AM documented in this encounterHighland [facility] Hospital04-11-2022 History of Present illness Narrative* Shy Osuna, [facility] - 11/25/2021 10:40 AM EDT [facility] Medication Management ANTICOAGULATION Referring Provider: Dr Moore GOAL INR: 2.0-3.0 TODAY'S INR: 2.7 WARFARIN Dosage: In [place] increased warfarin to whole 5 mg tablet Thu,Thu and 1.5 tablets for 7.5mg all other days. INR (no units) Date Value 2021 1.6 07/08/2021 1.9 05/09/2021 1.6 03/19/2021 2.4 02/20/2021 2.6 01/28/2021 3.3 12/17/2020 3.6 Medication changes: started Plavix stopped Aspirin started Celebrex Notes: Fingerstick INR drawn per clinic protocol. Patient states no visible blood in urine and no black tarry stool. Denies any missed doses of warfarin. No change in other maintenance medications jessica diet. Will recheck INR in 2 weeks. Patient acknowledges working in consult agreement with pharmacist as referred by his/her physician. Patient just returned from [place]. While in [place] she had a stent placed and started Plavix and stopped Aspirin. Patient started Celebrex for knee pain and follows up with orthopedic surgeon on Thu11-27-21. Patient is supposed to have hernia surgery on December 17 at [facility] with no Lovenox bridge per Dr Moore. For Pharmacy Admin Tracking Only Intervention Detail: Adherence Monitorin, Dose Adjustment: 1, reason: Therapy Optimization and New Rx: 3, reason: Needs Additional Therapy Total # of Interventions Recommended: 4 Total # of Interventions Accepted: 4 Time Spent (min): 30 Shy Osuna RPH, PharmD documented in this Channel [employer] Phone: [phone]) 748-845304-11-2022 Hospital Discharge instructions* Patient Instructions* Shy Osuna RPH - 11/25/2021 10:40 AM EDT Continue to monitor urine and stool. Continue to monitor for signs of bleeding. Return to clinic in2 weeks. Continue warfarin whole 5 mg tablet Mon,Wed and 1.5 tablets for 7.5mg all other days. documented in this Channel [employer] Phone: [phone]) 571-873312-11-2021 NoteHNO ID: [id number] Author: Interface Note Service: ? Author Type: ? Type: Progress Notes Filed: 07/27/2021 2:53 AM Note Text: Epic Scheduled Downtime: 07/27/2021 1:00:00 AM to 07/27/2021 2:38:59 [id number] History of Present illness Narrative* Shy Osuna RPH - 07/08/2021 11:30 AM EST [facility] Medication Management ANTICOAGULATION Referring Provider: Dr Moore GOAL INR: 2.0-3.0 TODAY'S INR: 1.9 WARFARIN Dosage: Continue warfarin 1.5 tablets for 7.5mg MWF and whole 5 mg tablet all other days. Hold 5 days prior to hernia surgery. INR (no units) Date Value 05/09/2021 1.6 03/19/2021 2.4 02/20/2021 2.6 01/28/2021 3.3 12/17/2020 3.6 07/11/2020 1.6 06/25/2020 1.4 Medication changes: Losartan and [facility]ol [facility] Started amlodipine On antibiotic for knee infection - Teflaro through 07-10 Notes: Fingerstick INR drawn per clinic protocol. Patient states no visible blood in urine and no black tarry stool. Denies any missed doses of warfarin. No change in other maintenance medications jessica diet. Will recheck INR in 4 weeks. Patient acknowledges working in consult agreement with pharmacist as referred by his/her physician. Patient had EGD in Apr then knee surgery in May. Patient has hernia surgery scheduled for 07-23-21 at [facility]. Patient has a cyst in her left kidney. I spoke to Dr Moore regarding risk vs benefit of bridging. Patient has renal issues and small chance of clotting with hernia surgery NO Lovenox bridge required. For Pharmacy Admin Tracking Only Intervention Detail: Adherence Monitorin, Dose Adjustment: 5, reason: Therapy Optimization and New Rx: 4, reason: Needs Additional Therapy Total # of Interventions Recommended: 9 Total # of Interventions Accepted: 9 Time Spent (min): 45 Shy Osuna RPH, PharmD documented in this Channel [employer] Phone: [phone]) 859-583011-22-2021 Hospital Discharge instructions* Patient Instructions* Shy Osuna RPH - 07/08/2021 11:30 AM EST Continue to monitor urine and stool. Continue to monitor for signs of bleeding. Return to clinic in4 weeks. Continue warfarin 1.5 tablets for 7.5mg MWF and whole 5 mg tablet all other days. Hold 5 days prior to hernia surgery. documented in this Channel [employer] Phone: [phone]) 889-584811-18-2021 History of Present illness Narrative* George Dyer, RT(R) - 07/04/2021 12:45 PM EST Radiology Service Progress Note PATIENT NAME: Leyla Lambert DATE OF SERVICE: July 04, 2021 TIME: 10:21 AM PATIENT IDENTITY VERIFICATION COMPLETED USING TWO (2) IDENTIFIERS: Name and Date of confirmedby patient verbally. FALL SCREENING: Has the patient had 2 falls in the last year or 1 fall with injury or currently using an Ambulatory Assistive Device (Walker, Cane, Wheelchair, Crutches, etc.)? No PATIENT GENDER DATA: Female. status: : No status: NO. PATIENT RELEVANT IMPLANT DATA REVIEWED: Not Applicable RADIOLOGY DEPARTMENT: General X-ray: Exam(s) Completed: Lower Extremity X- Ray(s): Knee, AP / Lat / Merchant Right PERIPHERAL IV DATA: Not applicable SIGNED BY: RT Corie(R) July 04, 2021 10:21 AM documented in this encounterHigh[facility] Hospital11-01-2021 History of Past illness Narrative* Problem Noted Date Resolved Date Hypernatremia 06/17/2021 06/19/2021 Supratherapeutic INR 06/10/2021 06/17/2021 documented as of this encounter (statuses as of 12/02/2021) [facility] Narrative* Problem Noted Date Resolved Date Hypernatremia 06/17/2021 06/19/2021 Supratherapeutic INR 06/10/2021 06/17/2021 documented as of this encounter (statuses as of 12/09/2021) [facility] illness Narrative* Problem Noted Date Resolved Date Hypernatremia 06/17/2021 06/19/2021 Supratherapeutic INR 06/10/2021 06/17/2021 documented as of this encounter (statuses as of 12/30/2021) [facility] Past [facility] Narrative* Problem Noted Date Resolved Date Hypernatremia 06/17/2021 06/19/2021 Supratherapeutic INR 06/10/2021 06/17/2021 documented as of this encounter (statuses as of 12/30/2021) [facility] Narrative* Problem Noted Date Resolved Date Hypernatremia 06/17/2021 06/19/2021 Supratherapeutic INR 06/10/2021 06/17/2021 documented as of this encounter (statuses as of 12/31/2021) [facility] Narrative* Problem Noted Date Resolved Date Hypernatremia 06/17/2021 06/19/2021 Supratherapeutic INR 06/10/2021 06/17/2021 documented as of this encounter (statuses as of 12/31/2021) [facility] Narrative* Problem Noted Date Resolved Date Hypernatremia 06/17/2021 06/19/2021 Supratherapeutic INR 06/10/2021 06/17/2021 documented as of this encounter (statuses as of 02/06/2022) [facility] Narrative* Problem Noted Date Resolved Date Hypernatremia 06/17/2021 06/19/2021 Supratherapeutic INR 06/10/2021 06/17/2021 documented as of this encounter (statuses as of 02/10/2022) [facility] Narrative* Problem Noted Date Resolved Date Hypernatremia 06/17/2021 06/19/2021 Supratherapeutic INR 06/10/2021 06/17/2021 documented as of this encounter (statuses as of 04/24/2022) [facility] Narrative* Problem Noted Date Resolved Date Hypernatremia 06/17/2021 06/19/2021 Supratherapeutic INR 06/10/2021 06/17/2021 documented as of this encounter (statuses as of 04/25/2022) [facility] Narrative* Problem Noted Date Resolved Date Hypernatremia 06/17/2021 06/19/2021 Supratherapeutic INR 06/10/2021 06/17/2021 documented as of this encounter (statuses as of 04/28/2022) [facility] Narrative* Problem Noted Date Resolved Date Hypernatremia 06/17/2021 06/19/2021 Supratherapeutic INR 06/10/2021 06/17/2021 documented as of this encounter (statuses as of 04/29/2022) [facility] Narrative* Problem Noted Date Resolved Date Hypernatremia 06/17/2021 06/19/2021 Supratherapeutic INR 06/10/2021 06/17/2021 documented as of this encounter (statuses as of 04/30/2022) [facility] Narrative* Problem Noted Date Resolved Date Hypernatremia 06/17/2021 06/19/2021 Supratherapeutic INR 06/10/2021 06/17/2021 documented as of this encounter (statuses as of 04/30/2022) [facility] Narrative* Problem Noted Date Resolved Date Hypernatremia 06/17/2021 06/19/2021 Supratherapeutic INR 06/10/2021 06/17/2021 documented as of this encounter (statuses as of 04/30/2022) [facility]arrative* Problem Noted Date Resolved Date Hypernatremia 06/17/2021 06/19/2021 Supratherapeutic INR 06/10/2021 06/17/2021 documented as of this encounter (statuses as of 05/05/2022) [facility] Narrative* Problem Noted Date Resolved Date Hypernatremia 06/17/2021 06/19/2021 Supratherapeutic INR 06/10/2021 06/17/2021 documented as of this encounter (statuses as of 05/08/2022) [facility] Narrative* Problem Noted Date Resolved Date Hypernatremia 06/17/2021 06/19/2021 Supratherapeutic INR 06/10/2021 06/17/2021 documented as of this encounter (statuses as of 05/09/2022) [facility] Narrative* Problem Noted Date Resolved Date Hypernatremia 06/17/2021 06/19/2021 Supratherapeutic INR 06/10/2021 06/17/2021 documented as of this encounter (statuses as of 05/19/2022) [facility] Narrative* Problem Noted Date Resolved Date Hypernatremia 06/17/2021 06/19/2021 Supratherapeutic INR 06/10/2021 06/17/2021 documented as of this encounter (statuses as of 05/22/2022) [facility] Narrative* Problem Noted Date Resolved Date Hypernatremia 06/17/2021 06/19/2021 Supratherapeutic INR 06/10/2021 06/17/2021 documented as of this encounter (statuses as of 05/22/2022) [facility] Narrative* Problem Noted Date Resolved Date Hypernatremia 06/17/2021 06/19/2021 Supratherapeutic INR 06/10/2021 06/17/2021 documented as of this encounter (statuses as of 06/03/2022) [facility] Narrative* Problem Noted Date Resolved Date Hypernatremia 06/17/2021 06/19/2021 Supratherapeutic INR 06/10/2021 06/17/2021 documented as of this encounter (statuses as of 06/04/2022) [facility] Narrative* Problem Noted Date Resolved Date Hypernatremia 06/17/2021 06/19/2021 Supratherapeutic INR 06/10/2021 06/17/2021 documented as of this encounter (statuses as of 07/02/2022) [facility] Narrative* Problem Noted Date Resolved Date Hypernatremia 06/17/2021 06/19/2021 Supratherapeutic INR 06/10/2021 06/17/2021 documented as of this encounter (statuses as of 07/22/2022) [facility] Narrative* Problem Noted Date Resolved Date Hypernatremia 06/17/2021 06/19/2021 Supratherapeutic INR 06/10/2021 06/17/2021 documented as of this encounter (statuses as of 12/10/2022) [facility] of Present illness Narrative* Ms Lambert is a 80 year old who presents for follow up for test results. C/O globus fullness and Regurgitation. Last visit c/o some nausea no vomiting On Coumadin and omeprazole.Has SOB daily and someconstipation * Still c/o difficulty swallowing feels like lump in throat Takes 6-8 tums at at bedtime. Water seemsto be the worse. Feels like sitting in chest causing pressure . having increase salvia with meals. Solid ok Then 2 hr after c/o pressure in chest. * Coughing and choking. * State had aspiration on Thursday of knee RT TKR- waiting on possible surgery called states infected Takes [employer] doxycycline for previous infects x2 * BMI-22 * PMHX-- esophageal dysmotility ,LPRD, Dysphagia. States has orthostatic hypotension Colon surgery, CHF,Cardiac stent * COPD * UGI/ Esophagram- * IMPRESSION: * 1. Unremarkable esophagram and upper GI study. * 2. Unremarkable GE junction without evidence of gastroesophageal * reflux. * EGD= * Impression: - Normal esophagus. * - Z-line regular, 38 cm from the incisors. * - 2 cm hiatal hernia. * - Chronic atrophic gastritis. Biopsied. * - Normal third portion of the duodenum. * - Gastroesophageal flap valve classified as Hill Grade * III (minimal fold, loose to endoscope, hiatal hernia * likely). * pathology- * FINAL DIAGNOSIS * A. GASTRIC ANRUM, BIOPSY: * GASTRIC ANTRAL MUCOSA WITH REACTIVE GASTROPATHY * NO HELICOBACTER PYLORI-LIKE ORGANISMS IDENTIFIED ON H T E STAINED SLIDES * NEGATIVE FOR INTESTINAL METAPLASIA OR DYSPLASIA * Manometry-Findings: * Findings * LESNormal * LESP (mid resp.)7 mmHg10 - 45 * Total Length2.2 cm * Median IRP12 mmHg<= 20 * EGJ MorphologyType III * Lower Esophageal Body (Liquid: 10 swallows) * Dix Classification Metrics * Normal DCI (450 - 8000)70.0 %>= 50.0 * Mean VFY913 mmHg s cm * DCI Ratio1.17> 0.85 * *Thheujzujcj49.0 %< 50.0 * Hypercontractile (DCI > 8000)0.0 %< 20.0 * Premature (DL < 4.5)0.0 %< 20.0 * Panesophageal0.0 %<= 0.0 * Pattern ClassificationNormal Esophageal Motility * Conventional Metrics * DEA45 mmHg<= 220 * Vmomayhqslz96.0 %>= 80.0 * Gwvehjdairp78.0 %< 50.0 * Tnumsajvezfj88.0 %< 20.0 * Jubmgyxrin97.0 % * Non-Transmitted0.0 %< 20.0 * * Ineffective includes weak, failed, and fragmented swallows. * Pattern Classification does not constitute a diagnosis. It may be * invalid if the patient has had prior related surgeries. * Impedance * Distal Baseline Abglkelzm039 ohms * Complete Transit (Liquid: 10 swallows)40.0 %>= 80.0 * Complete Transit (Viscous: 10 swallows)60.0 %>= 70.0 * Impressions * The study of the LES reveals a shortned length and a fixed hiatal * hernia. The LES pressur eis low at 7 mmHg and relaxes completely. The * esophageal body study demonstrates normal peristalsis and contraction * amplitudes. Bolus transit is decreased at 40%. The esophageal body study * demonstrates some pressurizaiton and high velocities with some liquid * swallows. This may be due to high pressure seen between the LES and the * hiatus. By traditional manometry only 50% of swallows are peristaltic * but by chicago classification the study is normal. * Diagnosis * Overall the patient has a haital hernia and some decreased peristalsis * that may be related to the dysphagia. In addition there is high pressure * between the LES and hiatus. * Signature * IMPEDANCE: * - There was complete bolus clearance in 40 % of swallows (normal > 80 * percent). * LPR study: 3 full column, minimal number of episodes. * * Ms. Lambert is a 80 year old who was referred by Dr Dobson. she has been seeing Dr Dobson or tonsillar cyst and fungal infection .She was treated with antifungal medication. Was c/o of globus fullnessand regurgitation . After treatment was completed, Barium swallow was ordered showing esophageal dys motility. * spoke with patient no improvement in symptoms states difficulty swallowing . sometimes thing do notgo down does not seem to matter food or water. States water really does not go down especially at night takes tums x4 before bedtime Does not c/o heartburn buts c/o chest heaviness and regurg. Sob daily . Has fallen twice in 6 months Last fall 2 weeks ago. No vomiting some nausea intermittent some constipation take prune juice Takes omeprazole daily * 2 years ago was in hospital and had trouble with water. then they said no problem but recently gotten worse. she has lost a few lbs. * she notes being treated for thrush did not change symtpoms. worse at night and when awakens in am. takes medicine at 10:30 and then feels sick after that- takes 5 meds. restless leg worst at night. notes bp 187 in am. has fallen twice and does not rememb er falling. * Diet- does not eat breakfast cappuccino, lunch today whopper chary meals - went down ok, Dinner last night potatoes soup. * also has runny nose and the swallowing and this go together. on coumadin and no change with ppi. notes globus * Today---Breakfast cappuccino Lunch today mac and beef * BMI-22 * PMHX-- esophageal dysmotility ,LPRD, Dysphagia. States has orthostatic hypotension Colon surgery, CHF,Cardiac stent * COPD * UGI- speech=IMPRESSION: * 1. Abnormal modified barium swallow study; the oral phase was * abnormal with premature pharyngeal entry. [facility] Work Phone: [phone]) 101-243009-23-2021 History of Present illness Narrative* Shy Osuna, [facility] - 05/09/2021 11:00 AM EDT [facility] ANTICOAGULATION Referring Provider: Dr Moore GOAL INR: 2.0-3.0 TODAY'S INR: 1.6 WARFARIN Dosage: Take 1.5 tablets for 7.5 mg today then continue warfarin 1.5 tablets for 7.5mg MWFand whole 5 mg tablet all other days. (Held warfarin for 5 days prior to EGD on 05-01-21) INR (no units) Date Value 03/19/2021 2.4 02/20/2021 2.6 01/28/2021 3.3 12/17/2020 3.6 07/11/2020 1.6 06/25/2020 1.4 05/28/2020 1.9 Medication changes: Added Tums to medication list Notes: Fingerstick INR drawn per clinic protocol. Patient states no visible blood in urine and no black tarry stool. Denies any missed doses of warfarin. No change in other maintenance medications jessica diet. Will recheck INR in 4 weeks. Patient acknowledges working in consult agreement with pharmacist as referred by his/her physician. Held warfarin for 5 days prior to EGD on 05-01-21. Has new PCPDr Douglas [place] in [place]. For Pharmacy Admin Tracking Only Intervention Detail: Adherence Monitorin, Dose Adjustment: 1, reason: Therapy Optimization and New Rx: 1, reason: Patient Preference Total # of Interventions Recommended: 2 Total # of Interventions Accepted: 2 Time Spent (min): 30 Shy Osuna RPH, PharmD documented in this [facility] [employer] Work Phone: [phone]) [phone] Hospital Discharge instructions* Patient Instructions* Shy Osuna RPH - 05/09/2021 11:00 AM EDT Continue to monitor urine and stool. Continue to monitor for signs of bleeding. Return to clinic in4 weeks. Take 1.5 tablets for 7.5 mg today then continue warfarin 1.5 tablets for 7.5mg MWF and whole 5 mg tablet all other days. [facility] this [facility] Phone: [phone]) 669-947808-03-2021 History of Present illness Narrative* Shy Osuna RPH - 03/19/2021 10:30 AM EDT [facility] Medication Management ANTICOAGULATION Referring Provider: Dr Moore GOAL INR: 2.0-3.0 TODAY'S INR: 2.6 WARFARIN Dosage: Continue warfarin 1.5 tablets for 7.5mg MWF and whole 5mg tablet all other days. INR (no units) Date Value 03/19/2021 2.4 02/20/2021 2.6 01/28/2021 3.3 12/17/2020 3.6 07/11/2020 1.6 06/25/2020 1.4 05/28/2020 1.9 Medication changes: none Notes: Fingerstick INR drawn per clinic protocol. Patient states no visible blood in urine and no black tarry stool. Denies any missed doses of warfarin. No change in other maintenance medications jessica diet. Will recheck INR in 6 weeks. Patient acknowledges working in consult agreement with pharmacist as referred by his/her physician. For Pharmacy Admin Tracking Only Intervention Detail: Adherence Monitorin Total # of Interventions Recommended: 0 Total # of Interventions Accepted: 0 Time Spent (min): 15 Shy Osuna RPH, PharmD [facility] Phone: [phone] Hospital Discharge instructions* Patient Instructions* Shy Osuna RPH - 03/19/2021 10:30 AM EDT Continue to monitor urine and stool. Continue to monitor for signs of bleeding. Return to clinic in6 weeks. Continue warfarin 1.5 tablets for 7.5mg MWF and whole 5mg tablet all other days. documented in [facility] Phone: [phone] History of Present illness Narrative* Henna Bravo RPH - 02/20/2021 11:00 AM EDT [facility] Medication Management ANTICOAGULATION Referring Provider: Dr Moore GOAL INR: 2.0-3.0 TODAY'S INR: 2.6 WARFARIN Dosage: continue 7.5mg MWF, 5mg all other days INR (no units) Date Value 02/20/2021 2.6 01/28/2021 3.3 12/17/2020 3.6 07/11/2020 1.6 06/25/2020 1.4 05/28/2020 1.9 05/11/2020 1.7 Medication changes: No changes-continues Sinemet nightly Notes: Fingerstick INR drawn per clinic protocol. Patient states no visible blood in urine and no black tarry stool. Denies any missed doses of warfarin. No change in other maintenance medications jessica diet. Will recheck INR in 4 weeks. Leyla will be having modified barium test tomorrow in preparation for appt with surgeon on 02/25. Patient is also meeting with Dr Dobson, throat specialist on 03/05 and is collecting nasal specimen for 3 days prior. She will then follow up with Dr Vincent, ENT.Patient acknowledges working in consult agreement with pharmacist as referred by his/her physician. For Pharmacy Admin Tracking Only Total # of Interventions Recommended: 2 Total # of Interventions Accepted: 2 Time Spent (min): 30 Henna Bravo R.Ph., 02/20/2021,11:32 AM documented [facility] Phone: [phone] Hospital Discharge instructions* Patient Instructions* Henna Bravo RPH - 02/20/2021 11:00 AM EDT Continue taking 7.5mg (1 1/2 tablets) on Thursday, Thursday and Thursday and 5mg (1 tablet) all other days. Continue to monitor for signs of bleeding. Return to coumadin clinic in 4 weeks. documented in [facility] Phone: [phone] History of Present illness Narrative* Nighat Bazzi RPH - 01/28/2021 11:00 AM EDT [facility] Medication Management ANTICOAGULATION Referring Provider: Yoli GOAL INR: 2-3 TODAY'S INR: 3.3 WARFARIN Dosage: Patient will decrease warfarin to 7.5 mg every MWF; 5 mg all other days. Patient will hold warfarin today. INR (no units) Date Value 01/28/2021 3.3 12/17/2020 3.6 07/11/2020 1.6 06/25/2020 1.4 05/28/2020 1.9 05/11/2020 1.7 04/17/2020 2.0 Medication changes: Started taking Sinemet 25/100 nightly again Notes: Fingerstick INR drawn per clinic protocol. Patient states no visible blood in urine and no black tarry stool. Denies any missed doses of warfarin. Patient has been diagnosed with esophageal dysphagia and states that she has had difficulty eating. Patient states she has an esophageal study/test scheduled on 01/30/21 at [facility] [place]. Will recheck INR in 3 weeks. Patient acknowledges working in consult agreement with pharmacist as referred by his/her physician. Patient will hold warfarin today then decrease dosage to 7.5 mg M,W,F and 5 mg other days for 42.5 mg/wk. CLINICAL PHARMACY CONSULT: MED RECONCILIATION/REVIEW ADDENDUM For Pharmacy Admin Tracking Only Intervention Detail: Dose Adjustment: 2: reason: Therapy Optimization Total # of Interventions Recommended: 2 Total # of Interventions Accepted: 2 Time Spent (min): 30 Nighat Bazzi RPH documented in this Channel [employer] Phone: [phone] Hospital Discharge instructions* Patient Instructions* Nighat Bazzi RPH - 01/28/2021 11:00 AM EDT Please hold warfarin today. Decrease current dose of warfarin as instructed on dosing calendar provided - 7.5 mg every Thursday, Thursday and Thursday and 5 mg all other days. Return to clinic in 3 weeks. Continue to monitor urine and stool for signs and symptoms of bleeding. Please notify the clinic of any medication changes. [facility] [employer] Work Phone: [phone] History of Present illness Narrative* Reason for visit: * LEYLA LAMBERT patient presents since last being seen 01/02/21. [facility] Work Phone: [phone] History of Present illness Narrative* Reason for visit: * LEYLA LAMBERT patient presents since last being seen 01/02/21. * On x2 PPI for reflux * Seeing a surgeon for reflux soon * Continued rhinorrea * worse with meals * bilaterally * worse with valsalva [facility] Work Phone: [phone] History of Present illness Narrative* Reason for visit: * LEYLA LAMBERT patient presents since last being seen 01/02/21. * Leyla presents for routine follow-up. She underwent a swallowing evaluation locally. She was told that she may be aspirating and then had another study performed. I requested these results today. It is unclear whether or not an issue with her swallowing is impacting her drainage symptoms. * She continues to have nasal drainage worse with eating meals and worse with Valsalva. It is bilateral. She has previously collected this fluid for beta-2 transferrin and this was negative. * She is on 2 proton pump inhibitors currently for reflux. She is planning to see a surgeon locally for consideration of reflux surgery. * Posterior nasal cavity cryoablation nor intranasal medical therapy have improved her drainage. OT[facility]tynd[facility]zyisk[facility] Work Phone: [phone] History of Present illness Narrative* Shy Osuna [facility] - 12/17/2020 10:30 AM EDT [facility] Medication Management ANTICOAGULATION Referring Provider: Bruhl GOAL INR: 2-3 TODAY'S INR: 3.6 WARFARIN Dosage: Hold warfarin today then decrease to warfarin whole 5 mg tablet every MWF and 1.5 tablets for 7.5mg all other days. INR (no units) Date Value 12/17/2020 3.6 07/11/2020 1.6 06/25/2020 1.4 05/28/2020 1.9 05/11/2020 1.7 04/17/2020 2.0 04/06/2020 2.0 Medication changes: Stopped Carbidopa-levodopa Notes: Fingerstick INR drawn per clinic protocol. Patient states no visible blood in urine and no black tarry stool. Denies any missed doses of warfarin. No change in other maintenance medications jessica diet. Will recheck INR in 3 weeks. Patient acknowledges working in consult agreement with pharmacist as referred by his/her physician. Patient has been in [place] and had warfarin dosed there. Patient states she had a hard time staying in range while in [place]. Patient was taking warfarin 5 mg M,F and 7.5 mg all other days for 47.5 mg/wk. Patient will hold warfarin today then decrease dosage to 5 mg M,W,F and 7.5 mg other days for 45 mg/wk. CLINICAL PHARMACY CONSULT: MED RECONCILIATION/REVIEW ADDENDUM For Pharmacy Admin Tracking Only For Pharmacy Admin Tracking Only Intervention Detail: Dose Adjustment: 2: reason: Therapy Optimization and New Rx: 1, reason: Patient Preference Total # of Interventions Recommended: 3 Total # of Interventions Accepted: 3 Time Spent (min): 30 Shy Osuna PharmD documented in this Channel [employer] Phone: [phone] Hospital Discharge instructions* Patient Instructions* Shy Osuna RPH - 12/17/2020 10:30 AM EDT Continue to monitor urine and stool. Continue to monitor for signs of bleeding. Return to clinic in3 weeks. Hold warfarin today then decrease to warfarin whole 5 mg tablet every MWF and 1.5 tablets for 7.5mg all other days. documented in this [facility] Phone: [phone] History of Present illness Narrative* Tatiana Griffiths RT(R) - 12/14/2020 1:00 PM EDT Radiology Service Progress Note PATIENT NAME: Leyla Lambert DATE OF SERVICE: December 14, 2020 TIME: 12:32 PM PATIENT IDENTITY VERIFICATION COMPLETED USING TWO (2) IDENTIFIERS: Name and Date of confirmedby patient verbally. FALL SCREENING: Has the patient had 2 falls in the last year or 1 fall with injury or currently using an Ambulatory Assistive Device (Walker, Cane, Wheelchair, Crutches, etc.)? No PATIENT GENDER DATA: Female. status: : No status: NO. PATIENT RELEVANT IMPLANT DATA REVIEWED: Not Applicable RADIOLOGY DEPARTMENT: General X-ray: Exam(s) Completed: Pelvis X-Ray: Pelvis with Hip Left PERIPHERAL IV DATA: Not applicable SIGNED BY: RT Timo(Maddi) December 14, 2020 12:32 PM [facility] History of Present illness Narrative* Reason for visit: * LEYLA LAMBERT patient presents since last being seen 08/30/2020. * Main Symptoms: * Patient has anterior nasal drainage. * Patient has posterior nasal drainage. * Patient has nasal airway obstruction. occasional. * Patient does not have facial pain. * Patient does not have facial pressure. * Patient does not have decreased sense of smell. * Associated Symptoms: * Patient has headaches. * Patient has throat clearing. after she eats. * Patient has coughing. * Patient has dysphonia. * Patient has nasal bleeding. very mild. * Medications currently on for sinonasal symptoms None. * Medications tried in the past for sinonasal symptoms. * Ipratropium. * Other Pertinent Medical Conditions: Cryoablation. * Patient has heartburn. * The patient takes medical therapy for heartburn. Omeprazole 40 mg. * Leyla presents for routine follow-up. She has been evaluated by gastroenterology and was placed on 40 mg of omeprazole once per day. Unfortunately, she continues with rhinorrhea that is worse when she eats. She is not seen significant benefit with posterior nasal cavity cryoablation. She is not currently using intranasal medical therapy. [facility]Zvsjgpbjmueysp-[facility]vydsmqj Work Phone: [phone] History of Present illness Narrative* LEYLA LAMBERT is a 80 year old female referred to me today by Dr. Pérez for dysphagia. * She reports that she has dysphagia and feels as though she has a lump in her throat. She also reports some PND and regurgitation. Patient takes Omeprazole and Nexium regularly. She coughs and clears her throat often while eating and swallows often while laying in bed. Patient previously used an inhaler last year per Dr. Pérez but has since stopped. Patient takes antibiotics twice daily and last took antibiotics this morning. * Denies fevers, chills, night sweats, nausea/vomiting, wt loss or hemoptysis. No complaints of otalgia. * Denies facial pain, pressure or headaches. * Denies chronic nasal congestion, stuffiness or postnasal drainage. * PMH: Reviewed EHR record/intake - pertinent Hx includes: rhinoscopy s/p Clariflex, nasal obstruction, throat clearing * chronic cough, GERD, COPD, breast caner. * PSHx: Reviewed. Includes: pacemaker, bilateral mastectomy. * Social: * Employment: retired * Marital Status: marries * Tobacco: former smoker * Denies other drug use. * FHx: reviewed. [facility] Work Phone: [phone] History of Present illness Narrative* Tomas Robertson (Misha) - 03/29/2020 8:45 AM EDT Radiology Service Progress Note PATIENT NAME: Leyla Lambert DATE OF SERVICE: March 29, 2020 TIME: 8:53 AM PATIENT IDENTITY VERIFICATION COMPLETED USING TWO (2) IDENTIFIERS: Name and Date of confirmedby patient verbally. FALL SCREENING: Has the patient had 2 falls in the last year or 1 fall with injury or currently using an Ambulatory Assistive Device (Walker, Cane, Wheelchair, Crutches, etc.)? No PATIENT GENDER DATA: Female. status: : No status: NO. PATIENT RELEVANT IMPLANT DATA REVIEWED: Not Applicable RADIOLOGY DEPARTMENT: General X-ray: Exam(s) Completed: Lower Extremity X- Ray(s): Knee, AP / Lat / Tunne / Merchant Left and Wt. Bearing: PERIPHERAL IV DATA: Not applicable SIGNED BY: Td Rocha RT (Maddi) March 29, 2020 8:53 AM documented in this encounterHigh[facility] Hospital07-25-2020 History of Present illness Narrative* LEYLA LAMBERT is a 80 year old female referred to me today by Dr. Pérez for dysphagia. * She reports that she has dysphagia and feels as though she has a lump in her throat. She also reports some PND and regurgitation. Patient takes Omeprazole and Nexium regularly. She coughs and clears her throat often while eating and swallows often while laying in bed. Patient previously used an inhaler last year per Dr. Pérez but has since stopped. Patient takes antibiotics twice daily and last took antibiotics this morning. * Denies fevers, chills, night sweats, nausea/vomiting, wt loss or hemoptysis. No complaints of otalgia. * Denies facial pain, pressure or headaches. * Denies chronic nasal congestion, stuffiness or postnasal drainage. * PMH: Reviewed EHR record/intake - pertinent Hx includes: rhinoscopy s/p Clariflex, nasal obstruction, throat clearing * chronic cough, GERD, COPD, breast caner. * PSHx: Reviewed. Includes: pacemaker, bilateral mastectomy. * Social: * Employment: retired * Marital Status: marries * Tobacco: former smoker * Denies other drug use. * FHx: reviewed. [facility] Work Phone: [phone] History of Present illness Narrative* LEYLA LAMBERT is a 80 year old female referred to me today by Dr. Pérez for dysphagia. * She reports that she has dysphagia and feels as though she has a lump in her throat. She also reports some PND and regurgitation. Patient takes Omeprazole and Nexium regularly. She coughs and clears her throat often while eating and swallows often while laying in bed. Patient previously used an inhaler last year per Dr. Pérez but has since stopped. Patient takes antibiotics twice daily and last took antibiotics this morning. * Denies fevers, chills, night sweats, nausea/vomiting, wt loss or hemoptysis. No complaints of otalgia. * Denies facial pain, pressure or headaches. * Denies chronic nasal congestion, stuffiness or postnasal drainage. * PMH: Reviewed EHR record/intake - pertinent Hx includes: rhinoscopy s/p Clariflex, nasal obstruction, throat clearing * chronic cough, GERD, COPD, breast caner. * PSHx: Reviewed. Includes: pacemaker, bilateral mastectomy. * Social: * Employment: retired * Marital Status: marries * Tobacco: former smoker * Denies other drug use. * FHx: reviewed. [facility] Work Phone: [phone] History of Present illness Narrative* LEYLA LAMBERT is a 80 year old female referred to me today by Dr. Pérez for dysphagia. * She reports that she has dysphagia and feels as though she has a lump in her throat. She also reports some PND and regurgitation. Patient takes Omeprazole and Nexium regularly. She coughs and clears her throat often while eating and swallows often while laying in bed. Patient previously used an inhaler last year per Dr. Pérez but has since stopped. Patient takes antibiotics twice daily and last took antibiotics this morning. * Denies fevers, chills, night sweats, nausea/vomiting, wt loss or hemoptysis. No complaints of otalgia. * Denies facial pain, pressure or headaches. * Denies chronic nasal congestion, stuffiness or postnasal drainage. * PMH: Reviewed EHR record/intake - pertinent Hx includes: rhinoscopy s/p Clariflex, nasal obstruction, throat clearing * chronic cough, GERD, COPD, breast caner. * PSHx: Reviewed. Includes: pacemaker, bilateral mastectomy. * Social: * Employment: retired * Marital Status: marries * Lives in: [] * Tobacco: former smoker * ETOH: [] * Denies other drug use. * Coffee/Tea/soda: [] * Water consumption: [] * FHx: reviewed. Includes: [facility] Work Phone: [phone] History of Present illness Narrative* LEYLA LAMBERT is a 80 year old female referred to me today by Dr. Pérez for dysphagia. * She reports that she has dysphagia and feels as though she has a lump in her throat. She also reports some PND and regurgitation. Patient takes Omeprazole and Nexium regularly. She coughs and clears her throat often while eating and swallows often while laying in bed. Patient previously used an inhaler last year per Dr. Pérez but has since stopped. Patient takes antibiotics twice daily and last took antibiotics this morning. * Denies fevers, chills, night sweats, nausea/vomiting, wt loss or hemoptysis. No complaints of otalgia. * Denies facial pain, pressure or headaches. * Denies chronic nasal congestion, stuffiness or postnasal drainage. * PMH: Reviewed EHR record/intake - pertinent Hx includes: rhinoscopy s/p Clariflex, nasal obstruction, throat clearing * chronic cough, GERD, COPD, breast caner. * PSHx: Reviewed. Includes: pacemaker, bilateral mastectomy. * Social: * Employment: retired * Marital Status: marries * Lives in: [] * Tobacco: former smoker * ETOH: [] * Denies other drug use. * Coffee/Tea/soda: [] * Water consumption: [] * FHx: reviewed. Includes: [facility]Omittzctvfvgum[facility]ud[facility] Work Phone: Evaluation + Plan note No data available for this section [facility] Evaluation + Plan note Future Appointments Appointment Date:04/14/2022 01:30:00 PM Scheduled Provider:Isauro ARCHULETA MD Location:[facility] Appointment Type:URO Office Visit [facility] Evaluation + Plan note Future Appointments Appointment Date:12/01/2022 02:15:00 PM Scheduled Provider:Isauro ARCHULETA MD Location:[facility] Appointment Type:URO Office Visit [facility] Evaluation + Plan note Future Appointments Appointment Date:02/02/2023 02:45:00 PM Scheduled Provider:Isauro ARCHULETA MD Location:[facility] Appointment Type:URO Office Visit [facility] evaluation + Plan note Future Appointments Appointment Date:01/28/2024 03:00:00 PM Scheduled Provider:Lou Lacy MD Location:[facility] Appointment Type:URO Office Visit 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 Coronary artery disease, unspecified vessel or lesion type, unspecified whether angina present, unspecified whether [place] or transplanted heart History of pulmonary embolus (PE) Personal history of pulmonary embolism 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 documented in this encounter [employer] Phone: evalrqusbo note* Diagnosis retirement 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- Primary History of pulmonary embolus (PE) Personal history of pulmonary embolism 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 documented in this encounter [employer] Phone: evalwpyknv note* 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 History of pulmonary embolus (PE) Personal history of pulmonary embolism 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 documented in this encounter [employer] Phone: evaluation noteNo assessment information available [facility] Diagnosis retirement 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- Primary History of pulmonary embolus (PE) Personal history of pulmonary embolism 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 documented in this encounter [employer] Phone: evaluation note* Diagnosis Acute pain of right knee- Primary 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* Diagnosis Spinal stenosis of lumbar region, unspecified whether neurogenic claudication present Lumbar radiculopathy, chronic Thoracic or lumbosacral neuritis or radiculitis, unspecified Pain in left wrist Pain in joint, forearm [facility]* Diagnosis Spinal stenosis of lumbar region with neurogenic claudication Spinal stenosis, lumbar region, with neurogenic claudication documented [facility]* Diagnosis retirement 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- Primary History of pulmonary embolus (PE) Personal history of pulmonary embolism 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 documented in this encounter [employer] Phone: evaluation note* Diagnosis retirement 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- Primary History of pulmonary embolus (PE) Personal history of pulmonary embolism 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 documented in this encounter [employer] Phone: evaluation note* Diagnosis Spinal stenosis of lumbar region, unspecified whether neurogenic claudication present Lumbar radiculopathy, chronic Thoracic or lumbosacral neuritis or radiculitis, unspecified [facility]* Diagnosis Knee pain, unspecified chronicity, unspecified laterality- Primary 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 documented in this encounter [employer] Phone: evaluation note* Diagnosis Unstable angina (HCC)- Primary Intermediate coronary syndrome PAF (paroxysmal atrial fibrillation) (HCC) Atrial fibrillation Essential hypertension Unspecified essential hypertension CAD (coronary artery disease) Coronary atherosclerosis of unspecified type of vessel, [place] or graft Chronic kidney disease Chronic kidney disease, unspecified Cellulitis of leg, right Cellulitis and abscess of leg, except foot documented in this encounter [employer] Phone: evaluation note* Diagnosis Preop examination Preoperative examination, unspecified Infection associated with internal right knee prosthesis, subsequent encounter Iron deficiency anemia, unspecified iron deficiency anemia type Infection associated with internal right knee prosthesis, subsequent encounter [facility] Iron deficiency anemia, unspecified iron deficiency anemia type- Primary Infection associated with internal right knee prosthesis, subsequent [facility] Diagnosis S/P revision of total knee, 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, subsequent encounter [facility] Diagnosis Iron deficiency anemia, unspecified iron deficiency anemia type- Primary Infection associated with internal right knee prosthesis, subsequent encounter [facility] Diagnosis Infection of prosthetic joint, subsequent encounter- Primary [facility] Diagnosis retirement 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- Primary History of pulmonary embolus (PE) Personal history of pulmonary embolism 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 documented in this encounter [employer] Phone: evaluation note* 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 [facility] Diagnosis S/P revision of total knee, right- Primary [facility] 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 History of pulmonary embolus (PE) Personal history of pulmonary embolism 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 documented in this encounter [employer] Phone: evaluation note* Diagnosis Numbness and tingling of right leg- Primary Disturbance of skin sensation Status post revision of total replacement of right knee documented in this encounter [facility] note* Diagnosis History of DVT (deep vein thrombosis) Personal history of venous thrombosis and embolism Pain of left calf documented in this encounter [employer] Phone: [email or web address] note* Diagnosis retirement 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- Primary History of pulmonary embolus (PE) Personal history of pulmonary embolism 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 documented in this encounter [employer] Phone: evaluation note* 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 documented in this encounter [facility] note* 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 Coronary artery disease, unspecified vessel or lesion type, unspecified whether angina present, unspecified whether [place] or transplanted heart History of pulmonary embolus (PE) Personal history of pulmonary embolism 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 documented in this encounter [employer] Phone: [email or web address] note* Diagnosis Skin tear of left elbow without complication, initial encounter- Primary documented in this encounter [employer] note* 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 Coronary artery disease, unspecified vessel or lesion type, unspecified whether angina present, unspecified whether [place] or transplanted heart History of pulmonary embolus (PE) Personal history of pulmonary embolism 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 documented in this encounter [employer] note* Diagnosis Pain Generalized pain documented in this encounter [facility] note* Diagnosis Acute pain of left knee documented in this encounter [facility] note* Diagnosis History of chest pain Personal history of other specified diseases ASHD (arteriosclerotic heart disease) Coronary atherosclerosis of unspecified type of vessel, [place] or graft S/P angioplasty with stent Postsurgical percutaneous transluminal coronary angioplasty status PAF (paroxysmal atrial fibrillation) (HCC) Atrial fibrillation Dysautonomia orthostatic hypotension 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 Chronic diastolic congestive heart failure (HCC) Chronic diastolic heart failure History of DVT (deep vein thrombosis) Personal history of venous thrombosis and embolism Cardiac pacemaker in situ Essential hypertension Unspecified essential hypertension [facility] Diagnosis Preop examination- Primary Preoperative examination, unspecified Infection associated with internal right knee prosthesis, subsequent encounter Atrial fibrillation, unspecified type (HCC) Atherosclerosis of [place] coronary artery of [place] heart without angina pectoris History of DVT (deep vein thrombosis) Personal history of venous thrombosis and embolism Essential hypertension, benign COPD, group D, by GOLD 2017 classification ([facility]) Acquired hypothyroidism Unspecified hypothyroidism Malignant neoplasm of female breast, unspecified estrogen receptor status, unspecified laterality, unspecified site of breast (HCC) Pacemaker Cardiac pacemaker in situ MTHFR gene mutation Anticoagulated Long-term (current) 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s CARISA (obstructive sleep apnea) Obstructive sleep apnea (adult) (pediatric) RLS (restless legs syndrome) Restless legs syndrome (RLS) Hiatal hernia Diaphragmatic hernia without mention of obstruction or gangrene ANTONIO (dyspnea on exertion) Other dyspnea and respiratory abnormality Iron deficiency anemia, unspecified iron deficiency anemia type Intestinal malabsorption, unspecified type Iron malabsorption Other specified intestinal malabsorption S/P revision of total knee, left documented in this encounter [facility] note* Diagnosis Preop examination- Primary Preoperative examination, unspecified Infection associated with internal right knee prosthesis, subsequent encounter Atrial fibrillation, unspecified type (HCC) Atherosclerosis of [place] coronary artery of [place] heart without angina pectoris History of DVT (deep vein thrombosis) Personal history of venous thrombosis and embolism Essential hypertension, benign COPD, group D, by GOLD 2017 classification ([facility]) Acquired hypothyroidism Unspecified hypothyroidism Malignant neoplasm of female breast, unspecified estrogen receptor status, unspecified laterality, unspecified site of breast (HCC) Pacemaker Cardiac pacemaker in situ MTHFR gene mutation Anticoagulated Long-term (current) 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s CARISA (obstructive sleep apnea) Obstructive sleep apnea (adult) (pediatric) RLS (restless legs syndrome) Restless legs syndrome (RLS) Hiatal hernia Diaphragmatic hernia without mention of obstruction or gangrene ANTONIO (dyspnea on exertion) Other dyspnea and respiratory abnormality Iron deficiency anemia, unspecified iron deficiency anemia type Intestinal malabsorption, unspecified type Iron malabsorption Other specified intestinal malabsorption Infection associated with internal right knee prosthesis, subsequent encounter documented in this encounter [facility] note* Diagnosis Preop examination- Primary Preoperative examination, unspecified Infection associated with internal right knee prosthesis, subsequent encounter Atrial fibrillation, unspecified type (HCC) Atherosclerosis of [place] coronary artery of [place] heart without angina pectoris History of DVT (deep vein thrombosis) Personal history of venous thrombosis and embolism Essential hypertension, benign COPD, group D, by GOLD 2017 classification ([facility]) Acquired hypothyroidism Unspecified hypothyroidism Malignant neoplasm of female breast, unspecified estrogen receptor status, unspecified laterality, unspecified site of breast (HCC) Pacemaker Cardiac pacemaker in situ MTHFR gene mutation Anticoagulated Long-term (current) 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s CARISA (obstructive sleep apnea) Obstructive sleep apnea (adult) (pediatric) RLS (restless legs syndrome) Restless legs syndrome (RLS) Hiatal hernia Diaphragmatic hernia without mention of obstruction or gangrene ANTONIO (dyspnea on exertion) Other dyspnea and respiratory abnormality Iron deficiency anemia, unspecified iron deficiency anemia type Intestinal malabsorption, unspecified type Iron malabsorption Other specified intestinal malabsorption Infection associated with internal right knee prosthesis, subsequent encounter [facility] Diagnosis 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 Preop examination- Primary Preoperative examination, unspecified Infection associated with internal right knee prosthesis, subsequent encounter Atrial fibrillation, unspecified type (HCC) Atherosclerosis of [place] coronary artery of [place] heart without angina pectoris History of DVT (deep vein thrombosis) Personal history of venous thrombosis and embolism Essential hypertension, benign COPD, group D, by GOLD 2017 classification ([facility]) Acquired hypothyroidism Unspecified hypothyroidism Malignant neoplasm of female breast, unspecified estrogen receptor status, unspecified laterality, unspecified site of breast (HCC) Pacemaker Cardiac pacemaker in situ MTHFR gene mutation Anticoagulated Long-term (current) 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s CARISA (obstructive sleep apnea) Obstructive sleep apnea (adult) (pediatric) RLS (restless legs syndrome) Restless legs syndrome (RLS) Hiatal hernia Diaphragmatic hernia without mention of obstruction or gangrene ANTONIO (dyspnea on exertion) Other dyspnea and respiratory abnormality Iron deficiency anemia, unspecified iron deficiency anemia type Intestinal malabsorption, unspecified type Iron malabsorption Other specified intestinal malabsorption [facility] Diagnosis S/P revision of total knee, right Preop examination- Primary Preoperative examination, unspecified Infection associated with internal right knee prosthesis, subsequent encounter Atrial fibrillation, unspecified type (HCC) Atherosclerosis of [place] coronary artery of [place] heart without angina pectoris History of DVT (deep vein thrombosis) Personal history of venous thrombosis and embolism Essential hypertension, benign COPD, group D, by GOLD 2017 classification ([facility]) Acquired hypothyroidism Unspecified hypothyroidism Malignant neoplasm of female breast, unspecified estrogen receptor status, unspecified laterality, unspecified site of breast (HCC) Pacemaker Cardiac pacemaker in situ MTHFR gene mutation Anticoagulated Long-term (current) 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s CARISA (obstructive sleep apnea) Obstructive sleep apnea (adult) (pediatric) RLS (restless legs syndrome) Restless legs syndrome (RLS) Hiatal hernia Diaphragmatic hernia without mention of obstruction or gangrene ANTONIO (dyspnea on exertion) Other dyspnea and respiratory abnormality Iron deficiency anemia, unspecified iron deficiency anemia type Intestinal malabsorption, unspecified type Iron malabsorption Other specified intestinal malabsorption [facility] Diagnosis Rash and other nonspecific skin eruption- [facility] Diagnosis Dysphagia, unspecified type- Primary Achalasia of cardia Achalasia and cardiospasm documented in this encounter [facility] Work Phone: Evaluation note* Diagnosis Dissection of thoracoabdominal aorta (CMS/HCC)- Primary Essential hypertension, benign (CMS/HCC) Essential hypertension, benign CAD in [place] artery (CMS/HCC) Chronic obstructive pulmonary disease, unspecified COPD type (CMS/HCC) Esophageal stricture Stricture and stenosis of esophagus Dysphasia Other speech disturbance Failure to thrive in adult- Primary Adult failure to thrive Penetrating ulcer of aorta (CMS/HCC) Chronic obstructive pulmonary disease, unspecified COPD type (CMS/HCC) Dysphasia Other speech disturbance Failure to thrive in adult- Primary Adult failure to thrive Orthostatic hypotension Dysphasia Other speech disturbance Chronic rhinosinusitis Unspecified sinusitis (chronic) MDD (major depressive disorder), recurrent episode, moderate (CMS/HCC) COPD, mild (CMS/HCC) Adult hypothyroidism (CMS/HCC) Unspecified hypothyroidism Lumbar spondylosis- Primary Lumbosacral spondylosis without myelopathy Chronic obstructive pulmonary disease, unspecified COPD type (CMS/HCC) Chronic rhinosinusitis Unspecified sinusitis (chronic) Adult hypothyroidism (CMS/HCC) Unspecified hypothyroidism MDD (major depressive disorder), recurrent episode, moderate (CMS/HCC) Orthostatic hypotension Severe protein-calorie malnutrition (CMS/HCC) Other severe protein-calorie malnutrition Chronic heart failure with preserved ejection fraction (HFpEF) (CMS/HCC) CAD in [place] artery (CMS/HCC) Paroxysmal atrial fibrillation (CMS/HCC) Atrial fibrillation Immunodeficiency due to conditions classified elsewhere (CMS/HCC) Thoracic aortic aneurysm, without rupture, unspecified (CMS/HCC) Severe protein-calorie malnutrition (CMS/HCC)- Primary Other severe protein-calorie malnutrition Diarrhea, unspecified type Lumbar spondylosis Lumbosacral spondylosis without myelopathy Dysphasia Other speech disturbance Allergic reaction to drug, subsequent encounter- Primary Encounter for removal of sutures documented in this encounter [facility]* Diagnosis Dissection of thoracoabdominal aorta (CMS/HCC)- Primary Essential hypertension, benign ([facility]/HCC) Essential hypertension, benign CAD in [place] artery (CMS/HCC) Chronic obstructive pulmonary disease, unspecified COPD type (CMS/HCC) Esophageal stricture Stricture and stenosis of esophagus Dysphasia Other speech disturbance Failure to thrive in adult- Primary Adult failure to thrive Penetrating ulcer of aorta (CMS/HCC) Chronic obstructive pulmonary disease, unspecified COPD type ([facility]/HCC) Dysphasia Other speech disturbance Failure to thrive in adult- Primary Adult failure to thrive Orthostatic hypotension Dysphasia Other speech disturbance Chronic rhinosinusitis Unspecified sinusitis (chronic) MDD (major depressive disorder), recurrent episode, moderate ([facility]/HCC) COPD, mild ([facility]/HCC) Adult hypothyroidism ([facility]) Unspecified hypothyroidism Lumbar spondylosis- Primary Lumbosacral spondylosis without myelopathy Chronic obstructive pulmonary disease, unspecified COPD type (CMS/HCC) Chronic rhinosinusitis Unspecified sinusitis (chronic) Adult hypothyroidism ([facility]/HCC) Unspecified hypothyroidism MDD (major depressive disorder), recurrent episode, moderate ([facility]/HCC) Orthostatic hypotension Severe protein-calorie malnutrition ([facility]/HCC) Other severe protein-calorie malnutrition Chronic heart failure with preserved ejection fraction (HFpEF) ([facility]) CAD in [place] artery ([facility]) Paroxysmal atrial fibrillation ([facility]) Atrial fibrillation Immunodeficiency due to conditions classified elsewhere ([facility]) Thoracic aortic aneurysm, without rupture, unspecified ([facility]) Severe protein-calorie malnutrition (CMS/HCC)- Primary Other severe protein-calorie malnutrition Diarrhea, unspecified type Lumbar spondylosis Lumbosacral spondylosis without myelopathy Dysphasia Other speech disturbance Vertigo- Primary Dizziness and giddiness Restless leg syndrome Restless legs syndrome (RLS) documented in this encounter [facility]* Diagnosis Lightheaded Dizziness and giddiness Dizziness Dizziness and giddiness SOB (shortness of breath) Shortness of breath Chest discomfort Other chest pain Dissection of aorta, unspecified portion of aorta (HCC) ASHD (arteriosclerotic heart disease) Coronary atherosclerosis of unspecified type of vessel, [place] or graft S/P angioplasty with stent Postsurgical percutaneous transluminal coronary angioplasty status Chronic anticoagulation Encounter for long-term (current) 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s Dysautonomia orthostatic hypotension 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 Chronic diastolic congestive heart failure (HCC) Chronic diastolic heart failure History of DVT (deep vein thrombosis) Personal history of venous thrombosis and embolism Cardiac pacemaker in situ Essential hypertension Unspecified essential hypertension History of chest pain Personal history of other specified diseases PAF (paroxysmal atrial fibrillation) ([facility]) Atrial fibrillation [facility] B[facility] status Preoperative clearance Unspecified pre-operative examination Gastroesophageal reflux disease, unspecified whether esophagitis present documented in this encounter [facility] Work Phone: Evaluation note* Diagnosis Dysphagia, unspecified type Gastroesophageal reflux disease, unspecified whether esophagitis present Lightheadedness Dizziness and giddiness Status post insertion of percutaneous endoscopic gastrostomy (PEG) tube ([facility]) Dysphagia, unspecified type documented in this encounter [facility] Work Phone: Evaluation note* Diagnosis 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 Dysphagia, unspecified type documented in this encounter [facility] Work Phone: Evaluation note* Diagnosis Severe protein-calorie malnutrition (CMS/HCC)- Primary Other severe protein-calorie malnutrition Diarrhea, unspecified type Lumbar spondylosis Lumbosacral spondylosis without myelopathy Dysphasia Other speech disturbance [facility] Dissection of thoracoabdominal aorta (CMS/HCC)- Primary Essential hypertension, benign (CMS/HCC) Essential hypertension, benign CAD in [place] artery (CMS/HCC) Chronic obstructive pulmonary disease, unspecified COPD type (CMS/HCC) Esophageal stricture Stricture and stenosis of esophagus Dysphasia Other speech disturbance Failure to thrive in adult- Primary Adult failure to thrive Penetrating ulcer of aorta (CMS/HCC) Chronic obstructive pulmonary disease, unspecified COPD type (CMS/HCC) Dysphasia Other speech disturbance Failure to thrive in adult- Primary Adult failure to thrive Orthostatic hypotension Dysphasia Other speech disturbance Chronic rhinosinusitis Unspecified sinusitis (chronic) MDD (major depressive disorder), recurrent episode, moderate (CMS/HCC) COPD, mild (CMS/HCC) Adult hypothyroidism (CMS/HCC) Unspecified hypothyroidism Lumbar spondylosis- Primary Lumbosacral spondylosis without myelopathy Chronic obstructive pulmonary disease, unspecified COPD type (CMS/HCC) Chronic rhinosinusitis Unspecified sinusitis (chronic) Adult hypothyroidism (CMS/HCC) Unspecified hypothyroidism MDD (major depressive disorder), recurrent episode, moderate (CMS/HCC) Orthostatic hypotension Severe protein-calorie malnutrition (CMS/HCC) Other severe protein-calorie malnutrition Chronic heart failure with preserved ejection fraction (HFpEF) (CMS/HCC) CAD in [place] artery (CMS/HCC) Paroxysmal atrial fibrillation (CMS/HCC) Atrial fibrillation Immunodeficiency due to conditions classified elsewhere (CMS/HCC) Thoracic aortic aneurysm, without rupture, unspecified (CMS/HCC) Severe protein-calorie malnutrition (CMS/HCC)- Primary Other severe protein-calorie malnutrition Diarrhea, unspecified type Lumbar spondylosis Lumbosacral spondylosis without myelopathy Dysphasia Other speech disturbance Primary osteoarthritis of both knees documented in this encounter [facility]* Diagnosis 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) Pulmonary embolism, unspecified chronicity, unspecified pulmonary embolism type, unspecified whether acute cor pulmonale present (CMS-HCC) 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) Intramural hematoma of thoracic aorta (CMS-HCC) Pulmonary embolism, unspecified chronicity, unspecified pulmonary embolism type, unspecified whether acute cor pulmonale present (CMS-HCC) [facility] Diagnosis Dissection of thoracoabdominal aorta (CMS/HCC)- Primary Essential hypertension, benign (CMS/HCC) Essential hypertension, benign CAD in [place] artery (CMS/HCC) Chronic obstructive pulmonary disease, unspecified COPD type (CMS/HCC) Esophageal stricture Stricture and stenosis of esophagus Dysphasia Other speech disturbance Failure to thrive in adult- Primary Adult failure to thrive Penetrating ulcer of aorta (CMS/HCC) Chronic obstructive pulmonary disease, unspecified COPD type (CMS/HCC) Dysphasia Other speech disturbance Failure to thrive in adult- Primary Adult failure to thrive Orthostatic hypotension Dysphasia Other speech disturbance Chronic rhinosinusitis Unspecified sinusitis (chronic) MDD (major depressive disorder), recurrent episode, moderate ([facility]/HCC) COPD, mild ([facility]/HCC) Adult hypothyroidism ([facility]) Unspecified hypothyroidism Lumbar spondylosis- Primary Lumbosacral spondylosis without myelopathy Chronic obstructive pulmonary disease, unspecified COPD type ([facility]/HCC) Chronic rhinosinusitis Unspecified sinusitis (chronic) Adult hypothyroidism ([facility]/HCC) Unspecified hypothyroidism MDD (major depressive disorder), recurrent episode, moderate ([facility]) Orthostatic hypotension Severe protein-calorie malnutrition ([facility]/HCC) Other severe protein-calorie malnutrition Chronic heart failure with preserved ejection fraction (HFpEF) ([facility]) CAD in [place] artery ([facility]) Paroxysmal atrial fibrillation ([facility]) Atrial fibrillation Immunodeficiency due to conditions classified elsewhere ([facility]) Thoracic aortic aneurysm, without rupture, unspecified ([facility]) Severe protein-calorie malnutrition ([facility])- Primary Other severe protein-calorie malnutrition Diarrhea, unspecified type Lumbar spondylosis Lumbosacral spondylosis without myelopathy Dysphasia Other speech disturbance Open wound of left lower leg, subsequent encounter- Primary documented in [facility]* Diagnosis Dissection of thoracoabdominal aorta ([facility])- Primary Essential hypertension, benign ([facility]) Essential hypertension, benign CAD in [place] artery ([facility]) Chronic obstructive pulmonary disease, unspecified COPD type ([facility]) Esophageal stricture Stricture and stenosis of esophagus Dysphasia Other speech disturbance Failure to thrive in adult- Primary Adult failure to thrive Penetrating ulcer of aorta ([facility]) Chronic obstructive pulmonary disease, unspecified COPD type ([facility]) Dysphasia Other speech disturbance Failure to thrive in adult- Primary Adult failure to thrive Orthostatic hypotension Dysphasia Other speech disturbance Chronic rhinosinusitis Unspecified sinusitis (chronic) MDD (major depressive disorder), recurrent episode, moderate ([facility]/HCC) COPD, mild ([facility]/HCC) Adult hypothyroidism ([facility]) Unspecified hypothyroidism Lumbar spondylosis- Primary Lumbosacral spondylosis without myelopathy Chronic obstructive pulmonary disease, unspecified COPD type ([facility]/HCC) Chronic rhinosinusitis Unspecified sinusitis (chronic) Adult hypothyroidism ([facility]/HCC) Unspecified hypothyroidism MDD (major depressive disorder), recurrent episode, moderate ([facility]) Orthostatic hypotension Severe protein-calorie malnutrition ([facility]) Other severe protein-calorie malnutrition Chronic heart failure with preserved ejection fraction (HFpEF) ([facility]/HCC) CAD in [place] artery ([facility]/HCC) Paroxysmal atrial fibrillation ([facility]/HCC) Atrial fibrillation Immunodeficiency due to conditions classified elsewhere ([facility]) Thoracic aortic aneurysm, without rupture, unspecified ([facility]) Severe protein-calorie malnutrition ([facility]/HCC)- Primary Other severe protein-calorie malnutrition Diarrhea, unspecified type Lumbar spondylosis Lumbosacral spondylosis without myelopathy Dysphasia Other speech disturbance Open wound of left lower leg, subsequent encounter- Primary CAD in [place] artery ([facility]) documented in this encounter [facility] HealthcareEvaluation note* Diagnosis Dissection of thoracoabdominal aorta ([facility])- Primary Essential hypertension, benign ([facility]) Essential hypertension, benign CAD in [place] artery ([facility]) Chronic obstructive pulmonary disease, unspecified COPD type ([facility]) Esophageal stricture Stricture and stenosis of esophagus Dysphasia Other speech disturbance Failure to thrive in adult- Primary Adult failure to thrive Penetrating ulcer of aorta ([facility]) Chronic obstructive pulmonary disease, unspecified COPD type ([facility]) Dysphasia Other speech disturbance Failure to thrive in adult- Primary Adult failure to thrive Orthostatic hypotension Dysphasia Other speech disturbance Chronic rhinosinusitis Unspecified sinusitis (chronic) MDD (major depressive disorder), recurrent episode, moderate ([facility]) COPD, mild ([facility]) Adult hypothyroidism ([facility]) Unspecified hypothyroidism Lumbar spondylosis- Primary Lumbosacral spondylosis without myelopathy Chronic obstructive pulmonary disease, unspecified COPD type ([facility]/HCC) Chronic rhinosinusitis Unspecified sinusitis (chronic) Adult hypothyroidism ([facility]) Unspecified hypothyroidism MDD (major depressive disorder), recurrent episode, moderate ([facility]) Orthostatic hypotension Severe protein-calorie malnutrition ([facility]) Other severe protein-calorie malnutrition Chronic heart failure with preserved ejection fraction (HFpEF) ([facility]) CAD in [place] artery ([facility]) Paroxysmal atrial fibrillation ([facility]/HCC) Atrial fibrillation Immunodeficiency due to conditions classified elsewhere ([facility]) Thoracic aortic aneurysm, without rupture, unspecified ([facility]) Severe protein-calorie malnutrition ([facility]/HCC)- Primary Other severe protein-calorie malnutrition Diarrhea, unspecified type Lumbar spondylosis Lumbosacral spondylosis without myelopathy Dysphasia Other speech disturbance Open wound of left lower leg, subsequent encounter- Primary Medicare annual wellness visit, subsequent- Primary Adult hypothyroidism ([facility]) Unspecified hypothyroidism Encounter for long-term 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 medication Essential hypertension, benign ([facility]) Essential hypertension, benign Prediabetes Other abnormal glucose Open wound of left lower leg, subsequent encounter CAD in [place] artery ([facility]) Restless leg syndrome Restless legs syndrome ([facility]S) Hiatal hernia with gastroesophageal reflux documented in this encounter [facility] HealthcareEvaluation note* Diagnosis Dissection of thoracoabdominal aorta ([facility])- Primary Essential hypertension, benign ([facility]) Essential hypertension, benign CAD in [place] artery ([facility]) Chronic obstructive pulmonary disease, unspecified COPD type ([facility]) Esophageal stricture Stricture and stenosis of esophagus Dysphasia Other speech disturbance Failure to thrive in adult- Primary Adult failure to thrive Penetrating ulcer of aorta ([facility]) Chronic obstructive pulmonary disease, unspecified COPD type ([facility]) Dysphasia Other speech disturbance Failure to thrive in adult- Primary Adult failure to thrive Orthostatic hypotension Dysphasia Other speech disturbance Chronic rhinosinusitis Unspecified sinusitis (chronic) MDD (major depressive disorder), recurrent episode, moderate ([facility]) COPD, mild ([facility]) Adult hypothyroidism ([facility]) Unspecified hypothyroidism Lumbar spondylosis- Primary Lumbosacral spondylosis without myelopathy Chronic obstructive pulmonary disease, unspecified COPD type ([facility]) Chronic rhinosinusitis Unspecified sinusitis (chronic) Adult hypothyroidism ([facility]) Unspecified hypothyroidism MDD (major depressive disorder), recurrent episode, moderate ([facility]) Orthostatic hypotension Severe protein-calorie malnutrition ([facility]) Other severe protein-calorie malnutrition Chronic heart failure with preserved ejection fraction (HFpEF) ([facility]) CAD in [place] artery ([facility]) Paroxysmal atrial fibrillation ([facility]) Atrial fibrillation Immunodeficiency due to conditions classified elsewhere ([facility]) Thoracic aortic aneurysm, without rupture, unspecified ([facility]) Severe protein-calorie malnutrition ([facility])- Primary Other severe protein-calorie malnutrition Diarrhea, unspecified type Lumbar spondylosis Lumbosacral spondylosis without myelopathy Dysphasia Other speech disturbance Open wound of left lower leg, subsequent encounter- Primary Medicare annual wellness visit, subsequent- Primary Adult hypothyroidism ([facility]) Unspecified hypothyroidism Encounter for long-term 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 medication Essential hypertension, benign ([facility]) Essential hypertension, benign Prediabetes Other abnormal glucose Open wound of left lower leg, subsequent encounter CAD in [place] artery ([facility]) Restless leg syndrome Restless legs syndrome ([facility]S) Hiatal hernia with gastroesophageal reflux Orthostatic hypotension- Primary Chest pain, unspecified type SOB (shortness of breath) Shortness of breath documented in this encounter [facility] HealthcareEvaluation note* Diagnosis Intramural hematoma of thoracic aorta ([facility]-HCC)- Primary Penetrating ulcer of aorta Pulmonary embolism, unspecified chronicity, unspecified pulmonary embolism type, unspecified whether acute cor pulmonale present ([facility]) Dissection of descending thoracic aorta ([facility])- Primary 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, limited to breakdown skin ([facility])- Primary documented in this encounter [facility] SystemEvaluation [facility]* Diagnosis Dissection of thoracoabdominal aorta ([facility]/HCC)- Primary Essential hypertension, benign ([facility]) Essential hypertension, benign CAD in [place] artery ([facility]) Chronic obstructive pulmonary disease, unspecified COPD type ([facility]) Esophageal stricture Stricture and stenosis of esophagus Dysphasia Other speech disturbance Failure to thrive in adult- Primary Adult failure to thrive Penetrating ulcer of aorta ([facility]) Chronic obstructive pulmonary disease, unspecified COPD type ([facility]) Dysphasia Other speech disturbance Failure to thrive in adult- Primary Adult failure to thrive Orthostatic hypotension Dysphasia Other speech disturbance Chronic rhinosinusitis Unspecified sinusitis (chronic) MDD (major depressive disorder), recurrent episode, moderate ([facility]) COPD, mild ([facility]) Adult hypothyroidism ([facility]) Unspecified hypothyroidism Lumbar spondylosis- Primary Lumbosacral spondylosis without myelopathy Chronic obstructive pulmonary disease, unspecified COPD type ([facility]/HCC) Chronic rhinosinusitis Unspecified sinusitis (chronic) Adult hypothyroidism ([facility]) Unspecified hypothyroidism MDD (major depressive disorder), recurrent episode, moderate ([facility]) Orthostatic hypotension Severe protein-calorie malnutrition ([facility]/HCC) Other severe protein-calorie malnutrition Chronic heart failure with preserved ejection fraction (HFpEF) ([facility]) CAD in [place] artery ([facility]) Paroxysmal atrial fibrillation ([facility]) Atrial fibrillation Immunodeficiency due to conditions classified elsewhere ([facility]) Thoracic aortic aneurysm, without rupture, unspecified ([facility]) Severe protein-calorie malnutrition ([facility]/HCC)- Primary Other severe protein-calorie malnutrition Diarrhea, unspecified type Lumbar spondylosis Lumbosacral spondylosis without myelopathy Dysphasia Other speech disturbance Open wound of left lower leg, subsequent encounter- Primary Medicare annual wellness visit, subsequent- Primary Adult hypothyroidism ([facility]) Unspecified hypothyroidism Encounter for long-term 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 medication Essential hypertension, benign ([facility]) Essential hypertension, benign Prediabetes Other abnormal glucose Open wound of left lower leg, subsequent encounter CAD in [place] artery ([facility]) Restless leg syndrome Restless legs syndrome (RLS) Hiatal hernia with gastroesophageal reflux Orthostatic hypotension- Primary Chest pain, unspecified type SOB (shortness of breath) Shortness of breath Iron 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 dietary iron intake- Primary Hypoalbuminemia Other disorders of plasma protein metabolism SOB (shortness of breath) Shortness of breath Paroxysmal atrial fibrillation ([facility]) Atrial fibrillation documented in this encounter [facility] HealthcareEvaluation note* Diagnosis Dissection of thoracoabdominal aorta ([facility])- Primary Essential hypertension, benign ([facility]) Essential hypertension, benign CAD in [place] artery ([facility]) Chronic obstructive pulmonary disease, unspecified COPD type ([facility]) Esophageal stricture Stricture and stenosis of esophagus Dysphasia Other speech disturbance Failure to thrive in adult- Primary Adult failure to thrive Penetrating ulcer of aorta ([facility]) Chronic obstructive pulmonary disease, unspecified COPD type ([facility]) Dysphasia Other speech disturbance Failure to thrive in adult- Primary Adult failure to thrive Orthostatic hypotension Dysphasia Other speech disturbance Chronic rhinosinusitis Unspecified sinusitis (chronic) MDD (major depressive disorder), recurrent episode, moderate ([facility]) COPD, mild ([facility]) Adult hypothyroidism ([facility]) Unspecified hypothyroidism Lumbar spondylosis- Primary Lumbosacral spondylosis without myelopathy Chronic obstructive pulmonary disease, unspecified COPD type ([facility]) Chronic rhinosinusitis Unspecified sinusitis (chronic) Adult hypothyroidism ([facility]) Unspecified hypothyroidism MDD (major depressive disorder), recurrent episode, moderate ([facility]) Orthostatic hypotension Severe protein-calorie malnutrition ([facility]) Other severe protein-calorie malnutrition Chronic heart failure with preserved ejection fraction (HFpEF) ([facility]) CAD in [place] artery ([facility]) Paroxysmal atrial fibrillation ([facility]) Atrial fibrillation Immunodeficiency due to conditions classified elsewhere ([facility]) Thoracic aortic aneurysm, without rupture, unspecified (CMS/HCC) Severe protein-calorie malnutrition (CMS/HCC)- Primary Other severe protein-calorie malnutrition Diarrhea, unspecified type Lumbar spondylosis Lumbosacral spondylosis without myelopathy Dysphasia Other speech disturbance Open wound of left lower leg, subsequent encounter- Primary Medicare annual wellness visit, subsequent- Primary Adult hypothyroidism (CMS/HCC) Unspecified hypothyroidism Encounter for long-term 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 medication Essential hypertension, benign (CMS/HCC) Essential hypertension, benign Prediabetes Other abnormal glucose Open wound of left lower leg, subsequent encounter CAD in [place] artery (CMS/HCC) Restless leg syndrome Restless legs syndrome (RLS) Hiatal hernia with gastroesophageal reflux Orthostatic hypotension- Primary Chest pain, unspecified type SOB (shortness of breath) Shortness of breath Iron 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 dietary iron intake- Primary Hypoalbuminemia Other disorders of plasma protein metabolism SOB (shortness of breath) Shortness of breath Paroxysmal atrial fibrillation (CMS/HCC) Atrial fibrillation Chronic obstructive pulmonary disease, unspecified COPD type ([facility]/HCC)- Primary SOB (shortness of breath) Shortness of breath documented in this encounter [facility] HealthcareEvaluation note* Diagnosis Dissection of thoracoabdominal aorta (CMS/HCC)- Primary Essential hypertension, benign (CMS/HCC) Essential hypertension, benign CAD in [place] artery ([facility]/HCC) Chronic obstructive pulmonary disease, unspecified COPD type (CMS/HCC) Esophageal stricture Stricture and stenosis of esophagus Dysphasia Other speech disturbance Failure to thrive in adult- Primary Adult failure to thrive Penetrating ulcer of aorta ([facility]/HCC) Chronic obstructive pulmonary disease, unspecified COPD type ([facility]/HCC) Dysphasia Other speech disturbance Failure to thrive in adult- Primary Adult failure to thrive Orthostatic hypotension Dysphasia Other speech disturbance Chronic rhinosinusitis Unspecified sinusitis (chronic) MDD (major depressive disorder), recurrent episode, moderate (CMS/HCC) COPD, mild (CMS/HCC) Adult hypothyroidism (CMS/HCC) Unspecified hypothyroidism Lumbar spondylosis- Primary Lumbosacral spondylosis without myelopathy Chronic obstructive pulmonary disease, unspecified COPD type (CMS/HCC) Chronic rhinosinusitis Unspecified sinusitis (chronic) Adult hypothyroidism (CMS/HCC) Unspecified hypothyroidism MDD (major depressive disorder), recurrent episode, moderate (CMS/HCC) Orthostatic hypotension Severe protein-calorie malnutrition (CMS/HCC) Other severe protein-calorie malnutrition Chronic heart failure with preserved ejection fraction (HFpEF) ([facility]) CAD in [place] artery ([facility]) Paroxysmal atrial fibrillation ([facility]/HCC) Atrial fibrillation Immunodeficiency due to conditions classified elsewhere ([facility]) Thoracic aortic aneurysm, without rupture, unspecified ([facility]) Severe protein-calorie malnutrition ([facility]/HCC)- Primary Other severe protein-calorie malnutrition Diarrhea, unspecified type Lumbar spondylosis Lumbosacral spondylosis without myelopathy Dysphasia Other speech disturbance Open wound of left lower leg, subsequent encounter- Primary Medicare annual wellness visit, subsequent- Primary Adult hypothyroidism ([facility]) Unspecified hypothyroidism Encounter for long-term 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 medication Essential hypertension, benign ([facility]) Essential hypertension, benign Prediabetes Other abnormal glucose Open wound of left lower leg, subsequent encounter CAD in [place] artery ([facility]) Restless leg syndrome Restless legs syndrome (RLS) Hiatal hernia with gastroesophageal reflux Orthostatic hypotension- Primary Chest pain, unspecified type SOB (shortness of breath) Shortness of breath Iron 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 dietary iron intake- Primary Hypoalbuminemia Other disorders of plasma protein metabolism SOB (shortness of breath) Shortness of breath Paroxysmal atrial fibrillation ([facility]) Atrial fibrillation Chronic obstructive pulmonary disease, unspecified COPD type ([facility])- Primary documented in this encounter [facility] HealthcareEvaluation note* Diagnosis Dissection of thoracoabdominal aorta ([facility])- Primary Essential hypertension, benign ([facility]) Essential hypertension, benign CAD in [place] artery ([facility]) Chronic obstructive pulmonary disease, unspecified COPD type ([facility]) Esophageal stricture Stricture and stenosis of esophagus Dysphasia Other speech disturbance Failure to thrive in adult- Primary Adult failure to thrive Penetrating ulcer of aorta ([facility]) Chronic obstructive pulmonary disease, unspecified COPD type ([facility]) Dysphasia Other speech disturbance Failure to thrive in adult- Primary Adult failure to thrive Orthostatic hypotension Dysphasia Other speech disturbance Chronic rhinosinusitis Unspecified sinusitis (chronic) MDD (major depressive disorder), recurrent episode, moderate ([facility]/HCC) COPD, mild ([facility]/HCC) Adult hypothyroidism ([facility]) Unspecified hypothyroidism Lumbar spondylosis- Primary Lumbosacral spondylosis without myelopathy Chronic obstructive pulmonary disease, unspecified COPD type ([facility]/HCC) Chronic rhinosinusitis Unspecified sinusitis (chronic) Adult hypothyroidism ([facility]) Unspecified hypothyroidism MDD (major depressive disorder), recurrent episode, moderate ([facility]) Orthostatic hypotension Severe protein-calorie malnutrition ([facility]/HCC) Other severe protein-calorie malnutrition Chronic heart failure with preserved ejection fraction (HFpEF) ([facility]) CAD in [place] artery ([facility]) Paroxysmal atrial fibrillation ([facility]) Atrial fibrillation Immunodeficiency due to conditions classified elsewhere ([facility]) Thoracic aortic aneurysm, without rupture, unspecified ([facility]) Severe protein-calorie malnutrition ([facility]/HCC)- Primary Other severe protein-calorie malnutrition Diarrhea, unspecified type Lumbar spondylosis Lumbosacral spondylosis without myelopathy Dysphasia Other speech disturbance Open wound of left lower leg, subsequent encounter- Primary Medicare annual wellness visit, subsequent- Primary Adult hypothyroidism ([facility]) Unspecified hypothyroidism Encounter for long-term 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 medication Essential hypertension, benign ([facility]) Essential hypertension, benign Prediabetes Other abnormal glucose Open wound of left lower leg, subsequent encounter CAD in [place] artery ([facility]) Restless leg syndrome Restless legs syndrome (RLS) Hiatal hernia with gastroesophageal reflux Orthostatic hypotension- Primary Chest pain, unspecified type SOB (shortness of breath) Shortness of breath Iron 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 dietary iron intake- Primary Hypoalbuminemia Other disorders of plasma protein metabolism SOB (shortness of breath) Shortness of breath Paroxysmal atrial fibrillation ([facility]) Atrial fibrillation SOB (shortness of breath)- Primary Shortness of breath Severe protein-calorie malnutrition ([facility]) Other severe protein-calorie malnutrition Chronic heart failure with preserved ejection fraction (HFpEF) ([facility]) CAD in [place] artery ([facility]) Adult hypothyroidism ([facility]) Unspecified hypothyroidism Chronic obstructive pulmonary disease, unspecified COPD type ([facility]) Encounter for long-term 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 medication Iron 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 dietary iron intake CKD stage 3a, GFR 45-59 ml/min ([facility]) documented in this encounter [facility] HealthcareEvaluation note* Diagnosis Intramural hematoma of thoracic aorta ([facility])- Primary Penetrating ulcer of aorta Pulmonary embolism, unspecified chronicity, unspecified pulmonary embolism type, unspecified whether acute cor pulmonale present ([facility]) Dissection of descending thoracic aorta ([facility] Primary Penetrating ulcer of aorta Age-related osteoporosis without current pathological fracture- Primary documented in this encounter [facility]* Diagnosis Dissection of thoracoabdominal aorta (HCC)- Primary Essential hypertension, benign Essential hypertension, benign CAD in [place] artery Chronic obstructive pulmonary disease, unspecified COPD type (HCC) Esophageal stricture Stricture and stenosis of esophagus Dysphasia Other speech disturbance Failure to thrive in adult- Primary Adult failure to thrive Penetrating ulcer of aorta Chronic obstructive pulmonary disease, unspecified COPD type (HCC) Dysphasia Other speech disturbance Failure to thrive in adult- Primary Adult failure to thrive Orthostatic hypotension Dysphasia Other speech disturbance Chronic rhinosinusitis Unspecified sinusitis (chronic) MDD (major depressive disorder), recurrent episode, moderate (HCC) COPD, mild (HCC) Adult hypothyroidism Unspecified hypothyroidism Lumbar spondylosis- Primary Lumbosacral spondylosis without myelopathy Chronic obstructive pulmonary disease, unspecified COPD type (HCC) Chronic rhinosinusitis Unspecified sinusitis (chronic) Adult hypothyroidism Unspecified hypothyroidism MDD (major depressive disorder), recurrent episode, moderate (HCC) Orthostatic hypotension Severe protein-calorie malnutrition (HHS-HCC) Other severe protein-calorie malnutrition Chronic heart failure with preserved ejection fraction (HFpEF) (HCC) CAD in [place] artery Paroxysmal atrial fibrillation (HCC) Atrial fibrillation Immunodeficiency due to conditions classified elsewhere (HCC) Thoracic aortic aneurysm, without rupture, unspecified Severe protein-calorie malnutrition (HHS-HCC)- Primary Other severe protein-calorie malnutrition Diarrhea, unspecified type Lumbar spondylosis Lumbosacral spondylosis without myelopathy Dysphasia Other speech disturbance Open wound of left lower leg, subsequent encounter- Primary Medicare annual wellness visit, subsequent- Primary Adult hypothyroidism Unspecified hypothyroidism Encounter for long-term 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 medication Essential hypertension, benign Essential hypertension, benign Prediabetes Other abnormal glucose Open wound of left lower leg, subsequent encounter CAD in [place] artery Restless leg syndrome Restless legs syndrome (RLS) Hiatal hernia with gastroesophageal reflux Orthostatic hypotension- Primary Chest pain, unspecified type SOB (shortness of breath) Shortness of breath Iron 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 dietary iron intake- Primary Hypoalbuminemia Other disorders of plasma protein metabolism SOB (shortness of breath) Shortness of breath Paroxysmal atrial fibrillation (HCC) Atrial fibrillation SOB (shortness of breath)- Primary Shortness of breath Severe protein-calorie malnutrition (HHS-HCC) Other severe protein-calorie malnutrition Chronic heart failure with preserved ejection fraction (HFpEF) (HCC) CAD in [place] artery Adult hypothyroidism Unspecified hypothyroidism Chronic obstructive pulmonary disease, unspecified COPD type (HCC) Encounter for long-term 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 medication Iron 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 dietary iron intake CKD stage 3a, GFR 45-59 ml/min ([facility]) Restless leg syndrome Restless legs syndrome (RLS) [facility] Diagnosis Gastroesophageal reflux disease, unspecified whether esophagitis present- Primary Dysphagia, unspecified type Status post insertion of percutaneous endoscopic gastrostomy (PEG) tube ([facility]) documented in this encounter [facility] Work Phone: Evaluation note* Diagnosis SOB (shortness of breath) on exertion Shortness of breath [facility] Diagnosis Normocytic anemia Anemia, unspecified [facility] Diagnosis Dissection of thoracoabdominal aorta (HCC)- Primary Essential hypertension, benign Essential hypertension, benign CAD in [place] artery Chronic obstructive pulmonary disease, unspecified COPD type (HCC) Esophageal stricture Stricture and stenosis of esophagus Dysphasia Other speech disturbance Failure to thrive in adult- Primary Adult failure to thrive Penetrating ulcer of aorta Chronic obstructive pulmonary disease, unspecified COPD type (HCC) Dysphasia Other speech disturbance Failure to thrive in adult- Primary Adult failure to thrive Orthostatic hypotension Dysphasia Other speech disturbance Chronic rhinosinusitis Unspecified sinusitis (chronic) MDD (major depressive disorder), recurrent episode, moderate (HCC) COPD, mild (HCC) Adult hypothyroidism Unspecified hypothyroidism Lumbar spondylosis- Primary Lumbosacral spondylosis without myelopathy Chronic obstructive pulmonary disease, unspecified COPD type (HCC) Chronic rhinosinusitis Unspecified sinusitis (chronic) Adult hypothyroidism Unspecified hypothyroidism MDD (major depressive disorder), recurrent episode, moderate (HCC) Orthostatic hypotension Severe protein-calorie malnutrition (HHS-HCC) Other severe protein-calorie malnutrition Chronic heart failure with preserved ejection fraction (HFpEF) ([facility]) CAD in [place] artery Paroxysmal atrial fibrillation (HCC) Atrial fibrillation Immunodeficiency due to conditions classified elsewhere ([facility]) Thoracic aortic aneurysm, without rupture, unspecified Severe protein-calorie malnutrition (HHS-HCC)- Primary Other severe protein-calorie malnutrition Diarrhea, unspecified type Lumbar spondylosis Lumbosacral spondylosis without myelopathy Dysphasia Other speech disturbance Open wound of left lower leg, subsequent encounter- Primary Medicare annual wellness visit, subsequent- Primary Adult hypothyroidism Unspecified hypothyroidism Encounter for long-term 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 medication Essential hypertension, benign Essential hypertension, benign Prediabetes Other abnormal glucose Open wound of left lower leg, subsequent encounter CAD in [place] artery Restless leg syndrome Restless legs syndrome (RLS) Hiatal hernia with gastroesophageal reflux Orthostatic hypotension- Primary Chest pain, unspecified type SOB (shortness of breath) Shortness of breath Iron 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 dietary iron intake- Primary Hypoalbuminemia Other disorders of plasma protein metabolism SOB (shortness of breath) Shortness of breath Paroxysmal atrial fibrillation (HCC) Atrial fibrillation SOB (shortness of breath)- Primary Shortness of breath Severe protein-calorie malnutrition (HHS-HCC) Other severe protein-calorie malnutrition Chronic heart failure with preserved ejection fraction (HFpEF) (HCC) CAD in [place] artery Adult hypothyroidism Unspecified hypothyroidism Chronic obstructive pulmonary disease, unspecified COPD type (HCC) Encounter for long-term 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 medication Iron 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 dietary iron intake CKD stage 3a, GFR 45-59 ml/min (CMS-HCC) Lumbar spondylosis Lumbosacral spondylosis without myelopathy SOB (shortness of breath)- Primary Shortness of breath CAD in [place] artery Chronic obstructive pulmonary disease, unspecified COPD type (HCC) Iron 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 dietary iron intake MDD (major depressive disorder), recurrent episode, moderate (HCC) Orthostatic hypotension documented in this encounter [facility]* Diagnosis Dissection of thoracoabdominal aorta (HCC)- Primary Essential hypertension, benign Essential hypertension, benign CAD in [place] artery Chronic obstructive pulmonary disease, unspecified COPD type (HCC) Esophageal stricture Stricture and stenosis of esophagus Dysphasia Other speech disturbance Failure to thrive in adult- Primary Adult failure to thrive Penetrating ulcer of aorta Chronic obstructive pulmonary disease, unspecified COPD type (HCC) Dysphasia Other speech disturbance Failure to thrive in adult- Primary Adult failure to thrive Orthostatic hypotension Dysphasia Other speech disturbance Chronic rhinosinusitis Unspecified sinusitis (chronic) MDD (major depressive disorder), recurrent episode, moderate (HCC) COPD, mild (HCC) Adult hypothyroidism Unspecified hypothyroidism Lumbar spondylosis- Primary Lumbosacral spondylosis without myelopathy Chronic obstructive pulmonary disease, unspecified COPD type (HCC) Chronic rhinosinusitis Unspecified sinusitis (chronic) Adult hypothyroidism Unspecified hypothyroidism MDD (major depressive disorder), recurrent episode, moderate (HCC) Orthostatic hypotension Severe protein-calorie malnutrition (HHS-HCC) Other severe protein-calorie malnutrition Chronic heart failure with preserved ejection fraction (HFpEF) ([facility]) CAD in [place] artery Paroxysmal atrial fibrillation (HCC) Atrial fibrillation Immunodeficiency due to conditions classified elsewhere ([facility]) Thoracic aortic aneurysm, without rupture, unspecified Severe protein-calorie malnutrition (HHS-HCC)- Primary Other severe protein-calorie malnutrition Diarrhea, unspecified type Lumbar spondylosis Lumbosacral spondylosis without myelopathy Dysphasia Other speech disturbance Open wound of left lower leg, subsequent encounter- Primary Medicare annual wellness visit, subsequent- Primary Adult hypothyroidism Unspecified hypothyroidism Encounter for long-term 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 medication Essential hypertension, benign Essential hypertension, benign Prediabetes Other abnormal glucose Open wound of left lower leg, subsequent encounter CAD in [place] artery Restless leg syndrome Restless legs syndrome (RLS) Hiatal hernia with gastroesophageal reflux Orthostatic hypotension- Primary Chest pain, unspecified type SOB (shortness of breath) Shortness of breath Iron 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 dietary iron intake- Primary Hypoalbuminemia Other disorders of plasma protein metabolism SOB (shortness of breath) Shortness of breath Paroxysmal atrial fibrillation (HCC) Atrial fibrillation SOB (shortness of breath)- Primary Shortness of breath Severe protein-calorie malnutrition (HHS-HCC) Other severe protein-calorie malnutrition Chronic heart failure with preserved ejection fraction (HFpEF) ([facility]) CAD in [place] artery Adult hypothyroidism Unspecified hypothyroidism Chronic obstructive pulmonary disease, unspecified COPD type ([facility]) Encounter for long-term 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 medication Iron 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 dietary iron intake CKD stage 3a, GFR 45-59 ml/min ([facility]) Lumbar spondylosis Lumbosacral spondylosis without myelopathy SOB (shortness of breath)- Primary Shortness of breath CAD in [place] artery Chronic obstructive pulmonary disease, unspecified COPD type ([facility]) Iron 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 dietary iron intake MDD (major depressive disorder), recurrent episode, moderate ([facility]) Orthostatic hypotension History of right knee joint replacement- Primary Acute pain of right knee documented in this encounter [facility]* Diagnosis Dissection of thoracoabdominal aorta ([facility])- Primary Essential hypertension, benign Essential hypertension, benign CAD in [place] artery Chronic obstructive pulmonary disease, unspecified COPD type ([facility]) Esophageal stricture Stricture and stenosis of esophagus Dysphasia Other speech disturbance Failure to thrive in adult- Primary Adult failure to thrive Penetrating ulcer of aorta Chronic obstructive pulmonary disease, unspecified COPD type ([facility]) Dysphasia Other speech disturbance Failure to thrive in adult- Primary Adult failure to thrive Orthostatic hypotension Dysphasia Other speech disturbance Chronic rhinosinusitis Unspecified sinusitis (chronic) MDD (major depressive disorder), recurrent episode, moderate (HCC) COPD, mild (HCC) Adult hypothyroidism Unspecified hypothyroidism Lumbar spondylosis- Primary Lumbosacral spondylosis without myelopathy Chronic obstructive pulmonary disease, unspecified COPD type (HCC) Chronic rhinosinusitis Unspecified sinusitis (chronic) Adult hypothyroidism Unspecified hypothyroidism MDD (major depressive disorder), recurrent episode, moderate (HCC) Orthostatic hypotension Severe protein-calorie malnutrition (HHS-HCC) Other severe protein-calorie malnutrition Chronic heart failure with preserved ejection fraction (HFpEF) ([facility]) CAD in [place] artery Paroxysmal atrial fibrillation (HCC) Atrial fibrillation Immunodeficiency due to conditions classified elsewhere ([facility]) Thoracic aortic aneurysm, without rupture, unspecified Severe protein-calorie malnutrition (HHS-HCC)- Primary Other severe protein-calorie malnutrition Diarrhea, unspecified type Lumbar spondylosis Lumbosacral spondylosis without myelopathy Dysphasia Other speech disturbance Open wound of left lower leg, subsequent encounter- Primary Medicare annual wellness visit, subsequent- Primary Adult hypothyroidism Unspecified hypothyroidism Encounter for long-term 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 medication Essential hypertension, benign Essential hypertension, benign Prediabetes Other abnormal glucose Open wound of left lower leg, subsequent encounter CAD in [place] artery Restless leg syndrome Restless legs syndrome (RLS) Hiatal hernia with gastroesophageal reflux Orthostatic hypotension- Primary Chest pain, unspecified type SOB (shortness of breath) Shortness of breath Iron 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 dietary iron intake- Primary Hypoalbuminemia Other disorders of plasma protein metabolism SOB (shortness of breath) Shortness of breath Paroxysmal atrial fibrillation (HCC) Atrial fibrillation SOB (shortness of breath)- Primary Shortness of breath Severe protein-calorie malnutrition (HHS-HCC) Other severe protein-calorie malnutrition Chronic heart failure with preserved ejection fraction (HFpEF) ([facility]) CAD in [place] artery Adult hypothyroidism Unspecified hypothyroidism Chronic obstructive pulmonary disease, unspecified COPD type ([facility]) Encounter for long-term 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 medication Iron 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 dietary iron intake CKD stage 3a, GFR 45-59 ml/min ([facility]) Lumbar spondylosis Lumbosacral spondylosis without myelopathy SOB (shortness of breath)- Primary Shortness of breath CAD in [place] artery Chronic obstructive pulmonary disease, unspecified COPD type ([facility]) Iron 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 dietary iron intake MDD (major depressive disorder), recurrent episode, moderate (HCC) Orthostatic hypotension Chronic obstructive pulmonary disease, unspecified COPD type ([facility]) SOB (shortness of breath) Shortness of breath [facility] Skin tear of left lower leg without complication, initial encounter- Primary Elevated brain natriuretic peptide (BNP) level Other nonspecific findings on examination of blood Anemia, unspecified type COPD exacerbation ([facility]) Obstructive chronic bronchitis with exacerbation [facility] Diagnosis Recurrent falls- Primary Personal history of fall KARLEE (acute kidney injury) Acute kidney failure, unspecified Elevated troponin Other abnormal blood chemistry Injury of head, initial encounter Frequent falls Personal history of fall Shortness of breath Severe malnutrition Nutritional marasmus PAF (paroxysmal atrial fibrillation) ([facility]) Atrial fibrillation Pulmonary hypertension ([facility]) Other chronic pulmonary heart diseases History of DVT (deep vein thrombosis) Personal history of venous thrombosis and embolism Essential hypertension Unspecified essential hypertension Chronic diastolic HF (heart failure), NYHA class 3 ([facility]) Dysautonomia orthostatic hypotension 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 Hypercoagulable state due to paroxysmal atrial fibrillation ([facility]) Stage 2 moderate COPD by GOLD classification ([facility]) Acute kidney injury superimposed on CKD Shortness of breath KARLEE (acute kidney injury) Acute kidney failure, unspecified Recurrent falls while walking Head injury Head injury, unspecified Acute on chronic anemia [facility] Diagnosis Dissection of thoracoabdominal aorta ([facility])- Primary Essential hypertension, benign Essential hypertension, benign CAD in [place] artery Chronic obstructive pulmonary disease, unspecified COPD type (HCC) Esophageal stricture Stricture and stenosis of esophagus Dysphasia Other speech disturbance Failure to thrive in adult- Primary Adult failure to thrive Penetrating ulcer of aorta Chronic obstructive pulmonary disease, unspecified COPD type (HCC) Dysphasia Other speech disturbance Failure to thrive in adult- Primary Adult failure to thrive Orthostatic hypotension Dysphasia Other speech disturbance Chronic rhinosinusitis Unspecified sinusitis (chronic) MDD (major depressive disorder), recurrent episode, moderate (HCC) COPD, mild (HCC) Adult hypothyroidism Unspecified hypothyroidism Lumbar spondylosis- Primary Lumbosacral spondylosis without myelopathy Chronic obstructive pulmonary disease, unspecified COPD type (HCC) Chronic rhinosinusitis Unspecified sinusitis (chronic) Adult hypothyroidism Unspecified hypothyroidism MDD (major depressive disorder), recurrent episode, moderate (HCC) Orthostatic hypotension Severe protein-calorie malnutrition (HHS-HCC) Other severe protein-calorie malnutrition Chronic heart failure with preserved ejection fraction (HFpEF) (HCC) CAD in [place] artery Paroxysmal atrial fibrillation (HCC) Atrial fibrillation Immunodeficiency due to conditions classified elsewhere ([facility]) Thoracic aortic aneurysm, without rupture, unspecified Severe protein-calorie malnutrition (HHS-HCC)- Primary Other severe protein-calorie malnutrition Diarrhea, unspecified type Lumbar spondylosis Lumbosacral spondylosis without myelopathy Dysphasia Other speech disturbance Open wound of left lower leg, subsequent encounter- Primary Medicare annual wellness visit, subsequent- Primary Adult hypothyroidism Unspecified hypothyroidism Encounter for long-term 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 medication Essential hypertension, benign Essential hypertension, benign Prediabetes Other abnormal glucose Open wound of left lower leg, subsequent encounter CAD in [place] artery Restless leg syndrome Restless legs syndrome (RLS) Hiatal hernia with gastroesophageal reflux Orthostatic hypotension- Primary Chest pain, unspecified type SOB (shortness of breath) Shortness of breath Iron 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 dietary iron intake- Primary Hypoalbuminemia Other disorders of plasma protein metabolism SOB (shortness of breath) Shortness of breath Paroxysmal atrial fibrillation (HCC) Atrial fibrillation SOB (shortness of breath)- Primary Shortness of breath Severe protein-calorie malnutrition (HHS-HCC) Other severe protein-calorie malnutrition Chronic heart failure with preserved ejection fraction (HFpEF) ([facility]) CAD in [place] artery Adult hypothyroidism Unspecified hypothyroidism Chronic obstructive pulmonary disease, unspecified COPD type ([facility]) Encounter for long-term 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 medication Iron 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 dietary iron intake CKD stage 3a, GFR 45-59 ml/min ([facility]) Lumbar spondylosis Lumbosacral spondylosis without myelopathy SOB (shortness of breath)- Primary Shortness of breath CAD in [place] artery Chronic obstructive pulmonary disease, unspecified COPD type ([facility]) Iron 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 dietary iron intake MDD (major depressive disorder), recurrent episode, moderate (HCC) Orthostatic hypotension CAD in [place] artery- Primary Lumbar spondylosis Lumbosacral spondylosis without myelopathy Iron 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 dietary iron intake Chronic heart failure with preserved ejection fraction (HFpEF) (HCC) Severe protein-calorie malnutrition (HHS-HCC) Other severe protein-calorie malnutrition SOB (shortness of breath) Shortness of breath documented in this encounter [facility]* Diagnosis Presence of Watchman left atrial appendage closure device- Primary Atrial fibrillation, unspecified type (HCC) Presence of Watchman left atrial appendage closure device Atrial fibrillation, unspecified type ([facility]) documented in this encounter [facility]* Diagnosis Normocytic anemia Anemia, unspecified KARLEE (acute kidney injury) Acute kidney failure, unspecified documented in this encounter [facility] note* Diagnosis Dissection of thoracoabdominal aorta (HCC)- Primary Essential hypertension, benign Essential hypertension, benign CAD in [place] artery Chronic obstructive pulmonary disease, unspecified COPD type (HCC) Esophageal stricture Stricture and stenosis of esophagus Dysphasia Other speech disturbance Failure to thrive in adult- Primary Adult failure to thrive Penetrating ulcer of aorta Chronic obstructive pulmonary disease, unspecified COPD type (HCC) Dysphasia Other speech disturbance Failure to thrive in adult- Primary Adult failure to thrive Orthostatic hypotension Dysphasia Other speech disturbance Chronic rhinosinusitis Unspecified sinusitis (chronic) MDD (major depressive disorder), recurrent episode, moderate (HCC) COPD, mild (HCC) Adult hypothyroidism Unspecified hypothyroidism Lumbar spondylosis- Primary Lumbosacral spondylosis without myelopathy Chronic obstructive pulmonary disease, unspecified COPD type (HCC) Chronic rhinosinusitis Unspecified sinusitis (chronic) Adult hypothyroidism Unspecified hypothyroidism MDD (major depressive disorder), recurrent episode, moderate (HCC) Orthostatic hypotension Severe protein-calorie malnutrition (HHS-HCC) Other severe protein-calorie malnutrition Chronic heart failure with preserved ejection fraction (HFpEF) (HCC) CAD in [place] artery Paroxysmal atrial fibrillation (HCC) Atrial fibrillation Immunodeficiency due to conditions classified elsewhere (HCC) Thoracic aortic aneurysm, without rupture, unspecified Severe protein-calorie malnutrition (HHS-HCC)- Primary Other severe protein-calorie malnutrition Diarrhea, unspecified type Lumbar spondylosis Lumbosacral spondylosis without myelopathy Dysphasia Other speech disturbance Open wound of left lower leg, subsequent encounter- Primary Medicare annual wellness visit, subsequent- Primary Adult hypothyroidism Unspecified hypothyroidism Encounter for long-term 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 medication Essential hypertension, benign Essential hypertension, benign Prediabetes Other abnormal glucose Open wound of left lower leg, subsequent encounter CAD in [place] artery Restless leg syndrome Restless legs syndrome (RLS) Hiatal hernia with gastroesophageal reflux Orthostatic hypotension- Primary Chest pain, unspecified type SOB (shortness of breath) Shortness of breath Iron 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 dietary iron intake- Primary Hypoalbuminemia Other disorders of plasma protein metabolism SOB (shortness of breath) Shortness of breath Paroxysmal atrial fibrillation (HCC) Atrial fibrillation SOB (shortness of breath)- Primary Shortness of breath Severe protein-calorie malnutrition (HHS-HCC) Other severe protein-calorie malnutrition Chronic heart failure with preserved ejection fraction (HFpEF) (HCC) CAD in [place] artery Adult hypothyroidism Unspecified hypothyroidism Chronic obstructive pulmonary disease, unspecified COPD type (HCC) Encounter for long-term 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 medication Iron 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 dietary iron intake CKD stage 3a, GFR 45-59 ml/min ([facility]-H[facility]) Lumbar spondylosis Lumbosacral spondylosis without myelopathy SOB (shortness of breath)- Primary Shortness of breath CAD in [place] artery Chronic obstructive pulmonary disease, unspecified COPD type (HCC) Iron 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 dietary iron intake MDD (major depressive disorder), recurrent episode, moderate (HCC) Orthostatic hypotension CAD in [place] artery- Primary Lumbar spondylosis Lumbosacral spondylosis without myelopathy Iron 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 dietary iron intake Chronic heart failure with preserved ejection fraction (HFpEF) (HCC) Severe protein-calorie malnutrition (HHS-HCC) Other severe protein-calorie malnutrition SOB (shortness of breath) Shortness of breath Chronic obstructive pulmonary disease, unspecified COPD type (HCC) COPD, mild (HCC) documented in this encounter [facility] HealthcareEvaluation note* Diagnosis Onset Date Resolution Status Admit Date Dysphagia acute April 1:25pm Esophageal stricture acute Apr 1:25pm [facility] Work Phone: Evaluation note* Diagnosis Anemia due to stage 3 chronic kidney disease, 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)- Primary documented in this encounter [facility] general Narrative - Reported* Type Description Date Medical History actinic keratoses Medical History breast cancer Medical History Hypothyroidism Medical History hypercholesterolemia Medical History hypertension Medical History RLS Medical History cad Medical History copd Medical History osteoarthritis Medical History failed knee Medical History Hx breast cancer Medical History 5,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 Medical History chronic pain Medical History depression Medical History diverticular disease Medical History GERD/esophageal dyskinesia Medical History fibromyalgia Medical History CARISA Medical History osteoarthritis multiple joints Medical History artifivial right knee Medical History pulmonary hypertension Medical History restless legs Medical History pulmonary nodule Medical History vilil[place] Medical History History of electroconvulsive the rapy Medical History Hx of phlebitis Medical History RESPIRATORY FAILURE Medical History Vasomotor rhinitis Surgical History 4 knee surgery Surgical History Hysterectomy 1980 Surgical History Mastectomy, bilateral, right la ter left 1989,1991 Surgical History Gall Bladder removed 1981 Surgical History colonoscopy- 20 inches of colon removed Surgical History colonoscopy Dr. Jarquin , electrodessication of telangectasia Surgical History IVC filter 2007 Surgical History appendectomy 1956 Surgical History cardiac cath mod 2 vessel disea se 2014 Surgical History patent stent 2011 Surgical History carpal tunnel Surgical History catraract 2009 Surgical History colonoscopy, [place] ablation of AV malformation 2012 Surgical History colonoscopy incomplete/ [place] 2000 Surgical History EGD,gastric polyp 2012 Surgical History EGD, GERD/hiatal hernia 2011 Surgical History EGE, Schazkis ring/[facility] 2010 Surgical History Hemorrhoidectomy 1970 Surgical History right knee revision arthroplast y/ [facility] Surgical History PACEMAKER 03/04/17 Surgical History Cardiac cath 80% stenosis LAD w ith stent Surgical History Revision RTKA patell ectomy, [place], patellar loosening 02/12/2015 Surgical History RTKA patellar revision AVN fong lla 03/13/2014 Surgical History arthroscopic debride ment , extensive, lateral patellolasty 12/20/2013 Surgical History cardiac cath, [place], ?09/2017 Surgical History R Knee 06/18/18 Surgical History esophagomotomy 2022 Hospitalization History as above Hospitalization History R TKR Infection, in [facility] 09/2018 Hospitalization History HTN in [place] 10/2019 [employer] Other History of Present illness Narrative* Dysphagia Treatment * S: Alert and pleasant with spouse accompanying patient. Reports feeling miserable * O: Patient reporting worsening of dysphagia. Decreased oral intake with food/liquid reported. Reviewed MBSS results with esophageal nature for dysphagia discussed. Educated patient on compensatory swallowing strategies and reflux precautions for improving efficiency of swallowing mechanism. Patientreports implementing most strategies introduced. Mixed consistency precautions discussed with consideration for eliminating problematic foods from diet as needed. Suggested use of liquid nutritional supplements with meals spaced out more frequently during day to increase oral intake. Provided handout of information for paitent reference. * Patient with recent visit this date with general surgery MD with plan for esophagram and esophagealmanometry testing. Discussed esophageal dysmotility as primary problem identified during MBSS, which warrants further investigation to determine if any medical treatment can be provided to alleviate dysphagia symptoms. * Patient expressing concern for spots on tonsil region due to report of close friend passing away from tonsil cancer. Advised patient follow up with ENT for review of plan for follow up as patient unable to recall if medical follow up recommended from previous visit. * A: Patient desiring resolution to dysphagia symptoms. Optimistic regarding medical plan for additional esophageal testing to identify source of problem. Patient receptive to suggestions provided by [employer] at time of visit. Do not feel further [employer] services required unless changes in oropharyngeal function develop. * P: Continue diet as tolerated. [employer] to follow as needed. [id number] Work Phone: History of Present illness Narrative* Dysphagia Treatment * S: Alert and pleasant with spouse accompanying patient. Reports feeling miserable * O: Patient reporting worsening of dysphagia. Decreased oral intake with food/liquid reported. Reviewed MBSS results with esophageal nature for dysphagia discussed. Educated patient on compensatory swallowing strategies and reflux precautions for improving efficiency of swallowing mechanism. Patientreports implementing most strategies introduced. Mixed consistency precautions discussed with consideration for eliminating problematic foods from diet as needed. Suggested use of liquid nutritional supplements with meals spaced out more frequently during day to increase oral intake. [facility] * Patient with recent visit this date with general surgery MD with plan for esophagram and esophagealmanometry testing. Discussed esophageal dysmotility as primary problem identified during MBSS, which warrants further investigation to determine if any medical treatment can be provided to alleviate dysphagia symptoms. * Patient expressing concern for spots on tonsil region due to report of close friend passing away from tonsil cancer. Advised patient follow up with ENT for review of plan for follow up as patient unable to recall if medical follow up recommended from previous visit. * A: Patient desiring resolution to dysphagia symptoms. Optimistic regarding medical plan for additional esophageal testing to identify source of problem. Patient receptive to suggestions provided by [employer] at time of visit. Do not feel further [employer] services required unless changes in oropharyngeal function develop. * P: Continue diet as tolerated. [employer] to follow as needed. [facility] Work Phone: History of Present illness Narrative* Dysphagia Treatment * S: Alert and pleasant with spouse accompanying patient. Reports feeling miserable * O: Patient reporting worsening of dysphagia. Decreased oral intake with food/liquid reported. Reviewed MBSS results with esophageal nature for dysphagia discussed. Educated patient on compensatory swallowing strategies and reflux precautions for improving efficiency of swallowing mechanism. Patientreports implementing most strategies introduced. Mixed consistency precautions discussed with consideration for eliminating problematic foods from diet as needed. Suggested use of liquid nutritional supplements with meals spaced out more frequently during day to increase oral intake. Provided handout of information for paitent reference. * Patient with recent visit this date with general surgery MD with plan for esophagram and esophagealmanometry testing. Discussed esophageal dysmotility as primary problem identified during MBSS, which warrants further investigation to determine if any medical treatment can be provided to alleviate dysphagia symptoms. * Patient expressing concern for spots on tonsil region due to report of close friend passing away from tonsil cancer. Advised patient follow up with ENT for review of plan for follow up as patient unable to recall if medical follow up recommended from previous visit. * A: Patient desiring resolution to dysphagia symptoms. Optimistic regarding medical plan for additional esophageal testing to identify source of problem. Patient receptive to suggestions provided by [employer] at time of visit. Do not feel further [employer] services required unless changes in oropharyngeal function develop. * P: Continue diet as tolerated. [employer] to follow as needed. [facility] Work Phone: History of Present illness Narrative* Dysphagia Treatment * S: Alert and pleasant with spouse accompanying patient. Reports feeling miserable * O: Patient reporting worsening of dysphagia. Decreased oral intake with food/liquid reported. Reviewed MBSS results with esophageal nature for dysphagia discussed. Educated patient on compensatory swallowing strategies and reflux precautions for improving efficiency of swallowing mechanism. Patientreports implementing most strategies introduced. Mixed consistency precautions discussed with consideration for eliminating problematic foods from diet as needed. Suggested use of liquid nutritional supplements with meals spaced out more frequently during day to increase oral intake. Provided handout of information for paitent reference. * Patient with recent visit this date with general surgery MD with plan for esophagram and esophagealmanometry testing. Discussed esophageal dysmotility as primary problem identified during MBSS, which warrants further investigation to determine if any medical treatment can be provided to alleviate dysphagia symptoms. * Patient expressing concern for spots on tonsil region due to report of close friend passing away from tonsil cancer. Advised patient follow up with ENT for review of plan for follow up as patient unable to recall if medical follow up recommended from previous visit. * A: Patient desiring resolution to dysphagia symptoms. Optimistic regarding medical plan for additional esophageal testing to identify source of problem. Patient receptive to suggestions provided by [employer] at time of visit. Do not feel further [employer] services required unless changes in oropharyngeal function develop. * P: Continue diet as tolerated. [employer] to follow as needed. [facility] Work Phone: Hospital Discharge instructions* Attachments The following attachments cannot be sent through Care Everywhere. * Acute Kidney Injury ([place]) * Orthostatic Hypotension ([place]) * Blood Transfusions: General Info ([place]) * cephalexin ([place]) [facility] HealthInstructionsNot on file documented in this encounterSpringfield HospitalmobME Solutions SystemInstructionsNot on file documented in this encounterSpringfield HospitalmobME Solutions SystemInstructionsNot on file documented in this encounterPromobME Solutions SystemInstructionsNot on file documented in this encounterPromobME Solutions SystemInstructionsNot on file documented in this encounterPromobME Solutions SystemInstructionsNot on file documented in this encounterSpringfield Hospitalmob[facility] Solutions SystemInstructionsNot on file documented in this encounterPromobME Solutions SystemInstructionsNot on file documented in this encounterSpringfield HospitalmobME Solutions SystemProgress note No data available for this section [facility] Reason for referral (narrative)* Diagnostic Procedure Only (Routine) - Closed Specialty Diagnoses / Procedures Referred By Tru castillo Referred To Contact XR IMAGING Diagnoses Pain in left wrist Procedures XR FOREARM GENERAL 2V AP/LAT LEFT RADEX FOREARM 2 [place] [address] [place] [address] Xr Imaging Referral ID Status Reason Start Date Expiration Date V isits Requested Visits Authorized [id number] Closed Auto-Generate d Referral 12/30/2021 01/29/2023 1 1 * Consult, Test, Treat (Routine) - Authorized Specialty Diagnoses / Procedures Referred By Contdamion t Referred To Contact Diagnoses Spinal stenosis of lumbar region, unspecified whether neurogenic claudication present Lumbar radiculopathy, chronic Spinal stenosis of lumbar region with neurogenic claudication Procedures CONSULT TO SPINE SURGERY OFFICE/OUTPATIENT [facility] 60-74 [place] [address] [place] [address] Referral ID Status Reason Start Date Expiration Date V isits Requested Visits Authorized [id number] Authorized 12/30/2021 03/30/2022 1 1 * MRI/CT (Routine) - Closed Specialty Diagnoses / Procedures Referred By Contac t Referred To Contact CT IMAGING Diagnoses Spinal stenosis of lumbar region with neurogenic claudication Procedures CT LUMBAR SPINE WO IVCON CT LUMBAR SPINE W/[place] [address] [place] [address] Ct Imaging Referral ID Status Reason Start Date Expiration Date V isits Requested Visits Authorized [id number] Closed Auto-Generate d Referral 12/30/2021 01/29/2023 1 1 * Diagnostic Procedure Only (Routine) - Closed Specialty Diagnoses / Procedures Referred By Contac t Referred To Contact XR IMAGING Diagnoses Spinal stenosis of lumbar region, unspecified whether neurogenic claudication present Lumbar radiculopathy, chronic Pain in left wrist Spinal stenosis of lumbar region with neurogenic claudication Procedures XR LUMBAR GENERAL 3V AP/LAT/L5-S1 RADEX SPINE LUMBOSACRAL 2/3 [place] [address] [place] [address] Xr Imaging Referral ID Status Reason Start Date Expiration Date V isits Requested Visits Authorized [id number] Closed Auto-Generate d Referral 12/30/2021 01/29/2023 1 1 * Diagnostic Procedure Only (Routine) - Closed Specialty Diagnoses / Procedures Referred By Contac t Referred To Contact XR IMAGING Diagnoses Spinal stenosis of lumbar region, unspecified whether neurogenic claudication present Lumbar radiculopathy, chronic Pain in left wrist Spinal stenosis of lumbar region with neurogenic claudication Procedures XR WRIST GENERAL 3V PA/LAT/OBL LEFT RADEX WRIST COMPLETE MINIMUM 3 [place] [address] [place] [address] Xr Imaging Referral ID Status Reason Start Date Expiration Date V isits Requested Visits Authorized [id number] Closed Auto-Generate d Referral 12/30/2021 01/29/2023 1 1 [facility] for referral (narrative)* Diagnostic Procedure Only (Routine) - Closed Specialty Diagnoses / Procedures Referred By Contac t Referred To Contact XR IMAGING Diagnoses Pain in left wrist Procedures XR FOREARM GENERAL 2V AP/LAT LEFT RADEX FOREARM 2 [place] [address] [place] [address] Xr Imaging Referral ID Status Reason Start Date Expiration Date V isits Requested Visits Authorized [id number] Closed Auto-Generate d Referral 12/30/2021 01/29/2023 1 1 * Diagnostic Procedure Only (Routine) - Closed Specialty Diagnoses / Procedures Referred By Contac t Referred To Contact XR IMAGING Diagnoses Spinal stenosis of lumbar region, unspecified whether neurogenic claudication present Lumbar radiculopathy, chronic Pain in left wrist Spinal stenosis of lumbar region with neurogenic claudication Procedures XR LUMBAR GENERAL 3V AP/LAT/L5-S1 RADEX SPINE LUMBOSACRAL 2/3 [place] [address] [place] [address] Xr Imaging Referral ID Status Reason Start Date Expiration Date V isits Requested Visits Authorized [id number] Closed Auto-Generate d Referral 12/30/2021 01/29/2023 1 1 * Diagnostic Procedure Only (Routine) - Closed Specialty Diagnoses / Procedures Referred By Contac t Referred To Contact XR IMAGING Diagnoses Spinal stenosis of lumbar region, unspecified whether neurogenic claudication present Lumbar radiculopathy, chronic Pain in left wrist Spinal stenosis of lumbar region with neurogenic claudication Procedures XR WRIST GENERAL 3V PA/LAT/OBL LEFT RADEX WRIST COMPLETE MINIMUM 3 [place] [address] [place] [address] Xr Imaging Referral ID Status Reason Start Date Expiration Date V isits Requested Visits Authorized [id number] Closed Auto-Generate d Referral 12/30/2021 01/29/2023 1 1 [facility] for referral (narrative)* Diagnostic Procedure Only (Routine) - Closed Specialty Diagnoses / Procedures Referred By Contac t Referred To Contact XR IMAGING Diagnoses S/P revision of total knee, left Procedures XR KNEE POST OP 3V AP/LAT/MERCHANT RIGHT RADIOLOGIC EXAMINATION KNEE 3 VIEWS Cooper Stephens PA-C [address] [place] [address] Xr Imaging [facility] Referral ID Status Reason Start Date Expiration Date V isits Requested Visits Authorized [id number] Closed Auto-Generate d Referral 03/13/2022 04/12/2023 1 1 T [facility] for referral (narrative)* Diagnostic Procedure Only (Routine) - Closed Specialty Diagnoses / Procedures Referred By Contac t Referred To Contact XR IMAGING Diagnoses Infection associated with internal right knee prosthesis, subsequent encounter Procedures XR KNEE POST OP 3V AP/LAT/MERCHANT RIGHT RADIOLOGIC EXAMINATION KNEE 3 VIEWS Cooper Stephens PA-C [address] [place] [address] [place] [address] Referral ID Status Reason Start Date Expiration Date V isits Requested Visits Authorized [id number] Closed Auto-Generate d Referral 04/04/2022 05/04/2023 1 1 [facility] for referral (narrative)* Diagnostic Procedure Only (Routine) - Closed Specialty Diagnoses / Procedures Referred By Contac t Referred To Contact XR IMAGING Diagnoses Infection associated with internal right knee prosthesis, subsequent encounter Procedures XR KNEE POST OP 3V AP/LAT/MERCHANT RIGHT RADIOLOGIC EXAMINATION KNEE 3 VIEWS Cooper Stephens PA-C [address] [place] [id number] Xr Imaging [place] [facility] Referral ID Status Reason Start Date Expiration Date V isits Requested Visits Authorized [id number] Closed Auto-Generate d Referral 04/04/2022 05/04/2023 1 1 [facility] for referral (narrative)* Diagnostic Procedure Only (Routine) - Closed Specialty Diagnoses / Procedures Referred By Harvinderac t Referred To Contact XR IMAGING Diagnoses 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 Procedures XR KNEE POST OP 3V AP/LAT/MERCHANT RIGHT RADIOLOGIC EXAMINATION KNEE 3 VIEWS Cooper Stephens PA-C [address] [place] [address] Xr Imaging [facility] Referral ID Status Reason Start Date Expiration Date V isits Requested Visits Authorized [id number] Closed Auto-Generate d Referral 11/08/2021 12/08/2022 1 1 [facility] for referral (narrative)* Diagnostic Procedure Only (Routine) - Closed Specialty Diagnoses / Procedures Referred By Contac t Referred To Contact XR IMAGING Diagnoses S/P revision of total knee, right Procedures XR KNEE POST OP 3V AP/LAT/MERCHANT RT X-RAY KNEE 3+ VW Cooper Stephens PA-C [address] [place] [id number] [place] [address] Referral ID Status Reason Start Date Expiration Date V isits Requested Visits Authorized [id number] Closed Auto-Generate d Referral 06/03/2021 07/03/2022 1 1 [facility] for referral (narrative)* Consultation (Routine) - Authorized Specialty Diagnoses / Procedures Referred By Contac t Referred To Contact Bariatrics / General Surgery Diagnoses [place], [place] [address] [place] [address] Nolan Julio MD [facility] [address] [facility][Note 3] [place] [address] Referral ID Status Reason Start Date Expiration Date Visits Requested Visits Authorized [id number] Authorized Specialty Services Required 04/01/2024 04/01/2025 1 1 * Endoscopy (Routine) - Authorized Specialty Diagnoses / Procedures Referred By Contact Referred To Contact Gastroenterology Diagnoses Gastroesophageal reflux disease, unspecified whether esophagitis present Procedures Esophagogastroduodenoscopy (EGD) w Dilation TTS [place] ESOPHAGOGASTRODUODENOSCOPY TRANSORAL DIAGNOSTIC [place] EGD TRANSORAL BIOPSY SINGLE/[place] [address] [facility] [place] [address] Referral ID Status Reason Start Date Expiration Date V isits Requested Visits Authorized [id number] Authorized 03/29/2024 03/29/2025 1 1 [facility] Work Phone: Reason for referral (narrative)* Consultation (Routine) - Pending Review Specialty Diagnoses / Procedures Referred By Contac t Referred To Contact Pain Medicine Diagnoses Lumbar spondylosis Procedures [place] OFFICE/OUTPATIENT [facility] HIGH MDM 60 MINUTES Douglas Will MD [address] [place] [address] Clemente Sutton MD [address] [place] [address] Referral ID Status Reason Start Date Expiration Date Visits Requested Visits Authorized [id number] Pending Review Specialty Services Required 04/07/2024 10/04/[address] [facility] for referral (narrative)No reason for referral information availableBarberton [facility] Work Phone: [facility] for visit Narrative* Diagnostic Procedure Only (Routine) - Closed Specialty Diagnoses / Procedures Referred By Contac t Referred To Contact XR IMAGING Diagnoses Pain in left wrist Procedures XR FOREARM GENERAL 2V AP/LAT LEFT RADEX FOREARM 2 VIEWS Ana Maria Amato, DO [address] [place] [address] Xr Imaging Referral ID Status Reason Start Date Expiration Date V isits Requested Visits Authorized [id number] Closed Auto-Generate d Referral 12/30/2021 01/29/2023 1 1 [facility] for visit Narrative* Diagnostic Procedure Only (Routine) - Closed Specialty Diagnoses / Procedures Referred By Contac t Referred To Contact XR IMAGING Diagnoses Infection associated with internal right knee prosthesis, subsequent encounter Procedures XR KNEE POST OP 3V AP/LAT/MERCHANT RIGHT RADIOLOGIC EXAMINATION KNEE 3 VIEWS Cooper Stephens, PA-C [address] [place] [address] [place] [address] Referral ID Status Reason Start Date Expiration Date V isits Requested Visits Authorized [id number] Closed Auto-Generate d Referral 04/04/2022 05/04/2023 1 1 [facility] for visit Narrative* Diagnostic Procedure Only (Routine) - Closed Specialty Diagnoses / Procedures Referred By Contac t Referred To Contact XR IMAGING Diagnoses S/P revision of total knee, right Procedures XR KNEE POST OP 3V AP/LAT/MERCHANT RT X-RAY KNEE 3+ VW Cooper Stephens, PA-C [address] [place] [address] [place] [address] Referral ID Status Reason Start Date Expiration Date V isits Requested Visits Authorized [id number] Closed Auto-Generate d Referral 06/03/2021 07/03/2022 1 1 [facility] for visit Narrative* Consultation (Routine) - Authorized Specialty Diagnoses / Procedures Referred By Contac t Referred To Contact Bariatrics / General Surgery Diagnoses [place], [place] [address] [place] [address] Nolan Julio MD [facility] [id number] [facility][Note 3] [place] [address] Referral ID Status Reason Start Date Expiration Date Visits Requested Visits Authorized [id number] Authorized Specialty Services Required 04/01/2024 04/01/2025 1 1 [facility] Work Phone: [facility] for visit Narrative* Consultation (Routine) - Closed Specialty Diagnoses / Procedures Referred By Contac t Referred To Contact Pulmonary Disease / Pulmonology Diagnoses Chronic obstructive pulmonary disease, unspecified COPD type (HCC) SOB (shortness of breath) Procedures [place] OFFICE/OUTPATIENT [facility] 60 MINUTES Douglas Will MD [address] [place] [address] Phone: tel: fax: Timothy Penn, DO [address] [place] [address] Phone: tel: fax: Referral ID Status Reason Start Date Expiration Date V isits Requested Visits Authorized [id number] Closed Specialty Services Required 01/04/2025 07/03/[address] [facility] for visit Narrative* Auth/Cert Specialty Diagnoses / Procedures Referred By Contac t Referred To Contact Diagnoses Atrial fibrillation, unspecified type (HCC) Procedures [place] PERQ CLSR TCAT L ATR APNDGE W/ENDOCARDIAL IMPLNT natividad / jaleesa/Watchman julita closure device Kendra Herrera MD [address] [address] Phone: tel: fax: [facility] [address] [place] [address] Referral ID Status Reason Start Date Expiration Date Visits Re quested Visits Authorized [id number] [facility] Treatment Plan and Therapy Plan (Routine) - Closed Specialty Diagnoses / Procedures Referred By Tru t Referred To Contact Diagnoses Anemia due to stage 3 chronic kidney disease, 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) Procedures [place] IRON SUCROSE INJECTION Rhoda Quezada MD [address] [place] [address] Phone: tel: fax: Rhoda Quezada MD [address] [id number] Phone: tel: fax: Referral ID Status Reason Start Date Expiration Date Visits Re quested Visits Authorized [id number] Closed 05/09/2025 08/16/2025 3 3 [facility] Summary Purpose Family History No Family History Records FoundUnknown Family Member Name Dates Details : Mother, Father Status:Active Family history of malignant neoplasm: Mother(V16.9, Z80.9) Status:Active Family history of blood clot s: Father(V18.3, Z82.49) Status:Active Unknown Family Member Name Dates Details : Mother, Father Status:Active Family history of malignant neoplasm: Mother(V16.9, Z80.9) Status:Active Family history of blood clot s: Father(V18.3, Z82.49) Status:Active Unknown Family Member Name Dates Details : Mother, Father Status:Active Family history of malignant neoplasm: Mother(V16.9, Z80.9) Status:Active Family history of blood clot s: Father(V18.3, Z82.49) Status:Active Unknown Family Member Name Dates Details : Mother, Father Status:Active Family history of malignant neoplasm: Mother(V16.9, Z80.9) Status:Active Family history of blood clot s: Father(V18.3, Z82.49) Status:Active Unknown Family Member Name Dates Details : Mother, Father Status:Active Family history of malignant neoplasm: Mother(V16.9, Z80.9) Status:Active Family history of blood clot s: Father(V18.3, Z82.49) Status:Active Unknown Family Member Name Dates Details : Mother, Father Status:Active Family history of malignant neoplasm: Mother(V16.9, Z80.9) Status:Active Family history of blood clot s: Father(V18.3, Z82.49) Status:Active Unknown Family Member Name Dates Details : Mother, Father Status:Active Family history of malignant neoplasm: Mother(V16.9, Z80.9) Status:Active Family history of blood clot s: Father(V18.3, Z82.49) Status:Active Unknown Family Member Name Dates Details Family history of blood clot s: Father(V18.3, Z82.49) Status:Active Family history of malignant neoplasm: Mother(V16.9, Z80.9) Status:Active : Mother, Father Status:Active Unknown Family Member Name Dates Details : Mother, Father Status:Active Family history of malignant neoplasm: Mother(V16.9, Z80.9) Status:Active Family history of blood clot s: Father(V18.3, Z82.49) Status:Active Unknown Family Member Name Dates Details : Mother, Father Status:Active Family history of malignant neoplasm: Mother(V16.9, Z80.9) Status:Active Family history of blood clot s: Father(V18.3, Z82.49) Status:Active Unknown Family Member Name Dates Details : Mother, Father Status:Active Family history of malignant neoplasm: Mother(V16.9, Z80.9) Status:Active Family history of blood clot s: Father(V18.3, Z82.49) Status:Active Unknown Family Member Name Dates Details : Mother, Father Status:Active Family history of malignant neoplasm: Mother(V16.9, Z80.9) Status:Active Family history of blood clot s: Father(V18.3, Z82.49) Status:Active Unknown Family Member Name Dates Details : Mother, Father Status:Active Family history of malignant neoplasm: Mother(V16.9, Z80.9) Status:Active Family history of blood clot s: Father(V18.3, Z82.49) Status:Active Unknown Family Member Name Dates Details : Mother, Father Status:Active Family history of malignant neoplasm: Mother(V16.9, Z80.9) Status:Active Family history of blood clot s: Father(V18.3, Z82.49) Status:Active Unknown Family Member Name Dates Details : Mother, Father Status:Active Family history of malignant neoplasm: Mother(V16.9, Z80.9) Status:Active Family history of blood clot s: Father(V18.3, Z82.49) Status:Active Unknown Family Member Name Dates Details : Mother, Father Status:Active Family history of malignant neoplasm: Mother(V16.9, Z80.9) Status:Active Family history of blood clot s: Father(V18.3, Z82.49) Status:Active Unknown Family Member Name Dates Details : Mother, Father Status:Active Family history of malignant neoplasm: Mother(V16.9, Z80.9) Status:Active Family history of blood clot s: Father(V18.3, Z82.49) Status:Active Unknown Family Member Name Dates Details Family history of blood clot s: Father(V18.3, Z82.49) Status:Active Family history of malignant neoplasm: Mother(V16.9, Z80.9) Status:Active : Mother, Father Status:Active Unknown Family Member Name Dates Details : Mother, Father Status:Active Family history of malignant neoplasm: Mother(V16.9, Z80.9) Status:Active Family history of blood clot s: Father(V18.3, Z82.49) Status:Active Unknown Family Member Name Dates Details : Mother, Father Status:Active Family history of malignant neoplasm: Mother(V16.9, Z80.9) Status:Active Family history of blood clot s: Father(V18.3, Z82.49) Status:Active Unknown Family Member Name Dates Details : Mother, Father Status:Active Family history of malignant neoplasm: Mother(V16.9, Z80.9) Status:Active Family history of blood clot s: Father(V18.3, Z82.49) Status:Active Relationship Condition Age at Onset Recorded Date/T leonel brother Unknown father Family history of other condition Unknown Unknown family member Diabetes mellitus Unknown Hypertension Unknown mother Family history of colon cancer Unknown Malignant neoplasm Unknown Advance Directives No Advanced Directives Records FoundDocuments on File Type Date Recorded Patient Data Analytics Architect Expl anation Advance Directives and Living Will Power of Director Patient Financial Services Latest Code Status on File Code Status Date Activated Date Inactivated Comments Full Code 06/14/2018 4:10 PM 06/16/2018 3:59 PM Full Code 05/05/2018 12:16 AM 05/10/2018 2:37 PM Full Code 05/05/2018 12:16 AM 05/05/2018 12:16 AM Full Code 04/28/2018 2:51 PM 05/03/2018 8:51 PM Full Code 04/28/2018 11:37 AM 04/28/2018 2:51 PM Documents on File Type Date Recorded Patient Data Analytics Architect Expl anation Advance Directives and Living Will Power of Director Patient Financial Services Latest Code Status on File Code Status Date Activated Date Inactivated Comments Full Code 06/14/2018 4:10 PM 06/16/2018 3:59 PM Full Code 05/05/2018 12:16 AM 05/10/2018 2:37 PM Full Code 05/05/2018 12:16 AM 05/05/2018 12:16 AM Full Code 04/28/2018 2:51 PM 05/03/2018 8:51 PM Full Code 04/28/2018 11:37 AM 04/28/2018 2:51 PM Documents on File Type Date Recorded Patient Data Analytics Architect Expl anation ACP-Advance Directive ACP-Power of Director Patient Financial Services Latest Code Status on File Code Status Date Activated Date Inactivated Comments Full Code 04/03/2020 9:31 AM Full Code 06/14/2018 4:10 PM 06/16/2018 3:59 PM Latest Code Status on File Code Status Date Activated Date Inactivated Comments Full Code 04/03/2020 9:31 AM 04/06/2020 1:48 PM Advance Directive Response Recorded Date/ Time Advance Directives No June 3:35pm Documents on File Type Date Recorded Patient Data Analytics Architect Expl anation Advance Directive(s) 07/12/2021 3:41 PM Advance Directive(s) 06/09/2021 4:05 PM Advance Directive(s) 05/29/2021 6:45 PM Advance Directive(s) 03/25/2020 10:45 AM Advance Directive(s) 03/24/2020 1:55 PM Advance Directive(s) 06/16/2018 10:15 PM Advance Directive(s) 08/05/2016 9:41 AM Advance Directive(s) 07/30/2016 8:38 AM Advance Directive(s) 04/23/2016 9:26 AM Advance Directive(s) 04/23/2016 3:36 PM Latest Code Status on File Code Status Date Activated Date Inactivated Comments Full Code 06/15/2021 2:49 PM 06/21/2021 1:03 AM Full Code Order Discussed With: Patient Full Code 05/29/2021 9:08 PM 06/05/2021 4:02 PM Full Code Order Discussed With: Discussion Not M edically Appropriate Documents on File Type Date Recorded Patient Data Analytics Architect Expl anation Advance Directive(s) 07/12/2021 3:41 PM Advance Directive(s) 06/09/2021 4:05 PM Advance Directive(s) 05/29/2021 6:45 PM Advance Directive(s) 03/25/2020 10:45 AM Advance Directive(s) 03/24/2020 1:55 PM Advance Directive(s) 06/16/2018 10:15 PM Advance Directive(s) 08/05/2016 9:41 AM Advance Directive(s) 07/30/2016 8:38 AM Advance Directive(s) 04/23/2016 9:26 AM Advance Directive(s) 04/23/2016 3:36 PM Latest Code Status on File Code Status Date Activated Date Inactivated Comments Full Code 06/15/2021 2:49 PM 06/21/2021 1:03 AM Full Code 05/29/2021 9:08 PM 06/05/2021 4:02 PM Advance Directive Response Recorded Date/ Time Advance Directives No December 23, 2021 4:18pm Latest Code Status on File Code Status Date Activated Date Inactivated Comments Full Code 04/02/2022 4:10 PM Full Code 04/03/2020 9:31 AM 04/06/2020 1:48 PM Healthcare Agents on File Name Relationship Healthcare Agent Relationshi p Communication Adam Lambert Spouse Primary Decision Maker Latest Code Status on File Code Status Date Activated Date Inactivated Comments Full Code 04/02/2022 4:10 PM 04/03/2022 7:48 PM Healthcare Agents on File Name Relationship Healthcare Agent Relationshi p Communication Adam Lambert Spouse Primary Decision Maker Healthcare Agents on File Name Relationship Healthcare Agent Relationshi p Communication Adam Lambert Spouse Primary Decision Maker Healthcare Agents on File Name Relationship Healthcare Agent Relationshi p Communication Adam Lambert Spouse Primary Decision Maker Healthcare Agents on File Name Relationship Healthcare Agent Relationshi p Communication Adam Lambert Spouse Primary Decision Maker Healthcare Agents on File Name Relationship Healthcare Agent Relationshi p Communication Adam Lambert Spouse Primary Decision Maker Latest Code Status on File Code Status Date Activated Date Inactivated Comments Full Code 04/02/2022 4:10 PM 04/03/2022 7:48 PM Code Status History Code Status Date Activated Date Inactivated Comments Full Code 04/03/2020 9:31 AM 04/06/2020 1:48 PM Full Code 06/14/2018 4:10 PM 06/16/2018 3:59 PM Full Code 05/05/2018 12:16 AM 05/10/2018 2:37 PM Full Code 05/05/2018 12:16 AM 05/05/2018 12:16 AM Healthcare Agents on File Name Relationship Healthcare Agent Relationshi p Communication Adam Lambert Spouse Primary Decision Maker Latest Code Status on File Code Status Date Activated Date Inactivated Comments Full Code 04/02/2022 4:10 PM 04/03/2022 7:48 PM Code Status History Code Status Date Activated Date Inactivated Comments Full Code 04/03/2020 9:31 AM 04/06/2020 1:48 PM Full Code 06/14/2018 4:10 PM 06/16/2018 3:59 PM Full Code 05/05/2018 12:16 AM 05/10/2018 2:37 PM Full Code 05/05/2018 12:16 AM 05/05/2018 12:16 AM Healthcare Agents on File Name Relationship Healthcare Agent Relationshi p Communication Adam Lambert Spouse Primary Decision Maker Healthcare Agents on File Name Relationship Healthcare Agent Relationshi p Communication Adam Lambert Spouse Primary Decision Maker Healthcare Agents on File Name Relationship Healthcare Agent Relationshi p Communication Adam Lambert Spouse Primary Decision Maker Healthcare Agents on File Name Relationship Healthcare Agent Relationshi p Communication Adam Lambert Spouse Primary Decision Maker Healthcare Agents on File Name Relationship Healthcare Agent Relationshi p Communication Adam Lambert Spouse Primary Decision Maker Latest Code Status on File Code Status Date Activated Date Inactivated Comments Full Code 06/15/2021 2:49 PM 06/21/2021 1:03 AM Question Answer Comments Full Code Order Discussed With: Patient Code Status History Code Status Date Activated Date Inactivated Comments Full Code 05/29/2021 9:08 PM 06/05/2021 4:02 PM Question Answer Comments Full Code Order Discussed With: Discussion Not Medically Appropriate Healthcare Agents on File Name Relationship Healthcare Agent Relationshi p Communication Adam Lambert Spouse Primary Decision Maker Date Activated Date Inactivated Comments 06/15/2021 2:49 PM 06/21/2021 1:03 AM Question Answer Comments Full Code Order Discussed With: Patient Date Activated Date Inactivated Comments 05/29/2021 9:08 PM 06/05/2021 4:02 PM Question Answer Comments Full Code Order Discussed With: Discussion Not M edically Appropriate Date Activated Date Inactivated Comments 03/28/2024 6:04 PM Question Answer Comments Plan of Care: Code Status Discussion Completed Decision Maker: Patient Date Activated Date Inactivated Comments 04/02/2022 4:10 PM 04/03/2022 7:48 PM Date Activated Date Inactivated Comments 04/03/2020 9:31 AM 04/06/2020 1:48 PM Date Activated Date Inactivated Comments 06/14/2018 4:10 PM 06/16/2018 3:59 PM Date Activated Date Inactivated Comments 05/05/2018 12:16 AM 05/10/2018 2:37 PM Date Activated Date Inactivated Comments 05/05/2018 12:16 AM 05/05/2018 12:16 AM Date Activated Date Inactivated Comments 03/28/2024 6:04 PM Question Answer Comments Plan of Care: Code Status Discussion Completed Decision Maker: Patient Documents on File Type Date Recorded Patient Data Analytics Architect Expl anation Durable Power of Director Patient Financial Services 12/14/2023 12:31 PM Date Activated Date Inactivated Comments 01/15/2024 1:16 AM 01/19/2024 11:12 PM Date Activated Date Inactivated Comments 12/31/2023 2:13 AM 01/01/2024 7:06 PM Date Activated Date Inactivated Comments 12/20/2023 5:43 PM 12/25/2023 3:42 PM Date Activated Date Inactivated Comments 11/23/2023 8:04 PM 11/23/2023 9:03 PM Date Activated Date Inactivated Comments 05/20/2023 6:35 PM 05/21/2023 2:54 PM Date Activated Date Inactivated Comments 12/13/2024 8:08 PM Date Activated Date Inactivated Comments 01/15/2024 1:16 AM 01/19/2024 11:12 PM Date Activated Date Inactivated Comments 12/31/2023 2:13 AM 01/01/2024 7:06 PM Date Activated Date Inactivated Comments 12/20/2023 5:43 PM 12/25/2023 3:42 PM Date Activated Date Inactivated Comments 11/23/2023 8:04 PM 11/23/2023 9:03 PM Date Activated Date Inactivated Comments 12/13/2024 8:08 PM 12/16/2024 5:38 PM Healthcare Agents on File Name Relationship Healthcare Agent Relationshi p Communication Adam Lambert Spouse Primary Decision Maker Healthcare Agents on File Name Relationship Healthcare Agent Relationshi p Communication Adam Lambert Spouse Primary Decision Maker Healthcare Agents on File Name Relationship Healthcare Agent Relationshi p Communication Adam Lambert Spouse Primary Decision Maker Date Activated Date Inactivated Comments 03/21/2025 5:36 PM Date Activated Date Inactivated Comments 04/02/2022 4:10 PM 04/03/2022 7:48 PM Date Activated Date Inactivated Comments 04/03/2020 9:31 AM 04/06/2020 1:48 PM Date Activated Date Inactivated Comments 06/14/2018 4:10 PM 06/16/2018 3:59 PM Date Activated Date Inactivated Comments 05/05/2018 12:16 AM 05/10/2018 2:37 PM Healthcare Agents on File Name Relationship Healthcare Agent Relationshi p Communication Adam Lambert Spouse Primary Decision Maker Date Activated Date Inactivated Comments 04/26/2025 7:22 AM Date Activated Date Inactivated Comments 03/21/2025 5:36 PM 03/24/2025 4:15 PM Date Activated Date Inactivated Comments 04/02/2022 4:10 PM 04/03/2022 7:48 PM Date Activated Date Inactivated Comments 04/03/2020 9:31 AM 04/06/2020 1:48 PM Date Activated Date Inactivated Comments 06/14/2018 4:10 PM 06/16/2018 3:59 PM Healthcare Agents on File Name Relationship Healthcare Agent Edgard p Communication Adam Lambert Spouse Primary Decision Maker Date Activated Date Inactivated Comments 04/26/2025 7:22 AM 04/26/2025 6:50 PM Date Activated Date Inactivated Comments 03/21/2025 5:36 PM 03/24/2025 4:15 PM Date Activated Date Inactivated Comments 04/02/2022 4:10 PM 04/03/2022 7:48 PM Date Activated Date Inactivated Comments 04/03/2020 9:31 AM 04/06/2020 1:48 PM Date Activated Date Inactivated Comments 06/14/2018 4:10 PM 06/16/2018 3:59 PM Healthcare Agents on File Name [facility]rell Rene p Communication Adam Lambert Spouse Primary Decision Maker Date Activated Date Inactivated Comments 04/26/2025 7:22 AM 04/26/2025 6:50 PM Healthcare Agents on File Name [facility] Agent Edgard p Communication Adam Lambert Spouse Primary Decision Maker Discharge Instructions * Patient Instructions* Nighat Bazzi RPH - 04/05/2019 10:57 AM EDT Please take warfarin 7.5 mg today. Continue current dose of warfarin as instructed on dosing calendar provided. Continue to monitor urine and stool for signs and symptoms of bleeding. Please notify the clinic of any medication changes. Please remember to bring all medications (both prescription and OTC) to your next visit. Kindly notify the clinic if you are unable to make to your next appointment. documented in this encounter* Patient Instructions* Nighat Bazzi RPH - 05/30/2019 11:05 AM EDT Continue current dose of warfarin as instructed on dosing calendar provided. Continue to monitor urine and stool for signs and symptoms of bleeding. Please notify the clinic of any medication changes. Please remember to bring all medications (both prescription and OTC) to your next visit. Kindly notify the clinic if you are unable to make to your next appointment. documented in this encounter* Patient Instructions* Henna Bravo [facility] - 06/27/2019 2:15 PM EST Please take 2 tablets (10mg) warfarin today then return to your regular dosing of 7.5mg ( 1 1/2 tablets) Thursday and Thursday and 5mg (1 tablet) all other days. Continue to monitor for signs of bleeding. Return to coumadin clinic in 2 weeks. documented in this encounter* Patient Instructions* Shy Osuna [facility] - 11/07/2019 10:30 AM EDT Continue to monitor urine and stool. Continue to monitor for signs of bleeding. Return to clinic in3 weeks. Continue 7.5 mg on M,W,F and 5 mg all other days. documented in this encounter* Patient Instructions* Shy Osuna [facility] - 01/25/2020 11:00 AM EDT Continue to monitor urine and stool. Continue to monitor for signs of bleeding. Return to clinic in2 weeks. Hold warfarin today then decrease warfarin to 1.5 tablets for 7.5 mg on M,F and whole 5 mgtablet all other days. documented in this encounter* Patient Instructions* Nighat Bazzi [facility] - 02/14/2020 3:00 PM EDT Continue current dose of warfarin as instructed on dosing calendar provided. Continue to monitor urine and stool for signs and symptoms of bleeding. Please notify the clinic of any medication changes. Kindly notify the clinic if you are unable to make to your next appointment. documented in this encounter* Discharge Instr - Activity* Eryn Carbajal RN - 04/06/2020 10:40 AM EDT As tolerated. * Discharge Instr - Diet* Eryn Carbajal RN - 04/06/2020 10:40 AM EDT ? Good nutrition is important when healing from an illness, injury, or surgery. Follow any nutrition recommendations given to you during your hospital stay. ? If you were given an oral nutrition supplement while in the hospital, continue to take this supplement at home. You can take it with meals, in-between meals, and/or before bedtime. These supplements can be purchased at most local grocery stores, pharmacies, and chain super-stores. ? If you have any questions about your diet or nutrition, call the hospital and ask for the dietitian. Cardiac diet. * Discharge Instr - Other Orders* Analy Starks APRN - CNP - 04/06/2020 9:58 AM EDT Follow up in the Coumadin Clinic on 04/13/2020 at 2:30 pm Check Blood Pressure before taking medications to know the parameters. SBP (systolic blood pressure) is the top number to look at. * Additional Instructions* Eryn Carbajal RN - 04/06/2020 Patient Instructions: Activity: activity as tolerated Diet: cardiac diet Follow up: Patient will be followed by [facility] in 1-2 weeks documented in this encounter* Attachments The following attachments cannot be sent through Care Everywhere. * SOB (Shortness of Breath) ([place]) documented in this encounter* Patient Instructions* Nighat Bazzi RPH - 05/28/2020 10:30 AM EDT Please take warfarin 10 mg today. Continue current dose of warfarin as instructed on dosing calendar provided - warfarin 1.5 tablets for 7.5 mg on M,,F and whole 5 mg tablet all other days. Return to clinic in 3 weeks. Continue to monitor urine and stool for signs and symptoms of bleeding. documented in this encounter* Patient Instructions* Henna Bravo RPH - 06/25/2020 11:00 AM EST Please take 10mg warfarin today then resume previous dosing. Take last dose of warfarin on Thursday then follow calendar provided in preparation for surgery. Continue to monitor for signs of bleeding. Return to coumadin clinic on 07/11/20 documented in this encounter* Patient Instructions* Shy Osuna [facility] - 07/13/2019 11:00 AM EST Continue to monitor urine and stool. Continue to monitor for signs of bleeding. Return to clinic inApril. documented in this encounter* Patient Instructions* Henna Bravo [facility] - 04/26/2019 11:23 AM EDT Please take 7.5mg warfarin ( 1 1/2 tablet) today then return to your regular dosing of 7.5mg on Mondays and Fridays and 1 tablet (5mg) all other days. Continue to monitor for signs of bleeding. Return to coumadin coumadin after appointment with Dr Moore. documented in this encounter* Patient Instructions* Nighat Bazzi [facility] - 07/11/2020 11:00 AM EST Please take warfarin 10 mg (2 tablets) and warfarin 7.5 mg (1.5 tablets) tomorrow. Continue current dose of warfarin as instructed on dosing calendar provided - 7.5 mg every Thursday, Thursday and Thursday and 5 mg all other days. Notify clinic when you return from [place]. Continue to monitor urine and stool for signs and symptoms of bleeding. documented in this encounter History of Present Illness * Nighat Bazzi [facility] - 04/05/2019 11:02 AM EDT Fingerstick INR drawn per clinic protocol. Patient states no visible blood in urine and no black tarry stool. Denies any missed doses of warfarin. No change in other maintenance medications or in diet. Patient did eat a salad 2 days ago with spinach. Patient will take warfarin 7.5 mg today. Will continue current warfarin regimen and recheck INR in 3 week(s). Patient acknowledges working in consult agreement with pharmacist as referred by his/her physician. documented in this encounter* Nighat Bazzi [facility] - 05/30/2019 12:08 PM EDT Fingerstick INR drawn per clinic protocol. Patient states no visible blood in urine and no black tarry stool. Denies any missed doses of warfarin. 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 Will continuecurrent warfarin regimen and recheck INR in 4 week(s). Patient acknowledges working in consult agreement with pharmacist as referred by his/her physician. documented in this encounter* Henna Bravo [facility] - 06/27/2019 2:15 PM EST Fingerstick INR drawn per clinic protocol. Patient states no visible blood in urine and no black tarry stool. Denies any missed doses of warfarin. No change in other maintenance medications or in diet. Will continue current warfarin regimen and recheck INR in 2 week(s) prior to leaving for [place] on 07/15/19 through October 2019. Patient saw Dr Moore today and declines BP and weight check. Patientwas instructed to discontinue mestinon and increase losartan to 100mg daily. Patient acknowledges working in consult agreement with pharmacist as referred by his/her physician. documented in this encounter* Shy Osuna, [facility] - 11/07/2019 10:30 AM EDT Patient denies fever or respiratory syptoms. Recent Travel Screening and Travel History documentation: Travel Screening No screening recorded since 11/06/19 1030 Travel History Travel since 10/09/19 No documented travel since 10/09/19 Patient states no visible blood in urine and no black tarry stool. No change in other medications. Will return to clinic in [address] Moore appt. Patient was in [place] and doctor was dosing warfarin there. Patient was taking 10 mg daily for 2 weeks and INR was 4.3 (3-9-20). Since then patient has been taking 7.5 mg on M,W,F and 5 mg all other days. Patient states she had a lot of problems with orthostatic3 hypotension while in [place] also. Patient had a heart cath while in [place], an Echo and a PETscan that showed a valve problem. Patient will continue her increased dosage from [place] of warfarin 7.5 mg on M,W,F and 5 mg all other days. CLINICAL PHARMACY CONSULT: MED RECONCILIATION/REVIEW ADDENDUM For Pharmacy Admin Tracking Only PHSO: No Total # of Interventions Recommended: 1 - Increased Dose #: 1 - Maintenance Safety Lab Monitoring #: 1 Recommended intervention potential cost savings: Accepted intervention potential cost savings: Total Interventions Accepted: 1 Time Spent (min): 15 Shy Osuna PharmD documented in this encounter* Shy Osuna [facility] - 01/25/2020 11:00 AM EDT Patient states no visible blood in urine and no black tarry stool. No change in other medications. Patient started droxidopa 150 mg take 3 capsules TID. Vanita states this does not interact with warfarin. Will return to clinic in 2 weeks. Saw patient KALEN. Patient will hold warfarin today then decrease warfarin to 1.5 tablets for 7.5 mg on M,F and whole 5 mg tablet all other days. Patient states her knee is bothering her again and the orthostatic hypotension is worse again. CLINICAL PHARMACY CONSULT: MED RECONCILIATION/REVIEW ADDENDUM For Pharmacy Admin Tracking Only PHSO: No Total # of Interventions Recommended: 2 - New Order #: 1 New Medication Order Reason(s): Needs Additional Medication Therapy - Maintenance Safety Lab Monitoring #: 1 Recommended intervention potential cost savings: Accepted intervention potential cost savings: Total Interventions Accepted: 2 Time Spent (min): 30 Shy Osuna PharmD documented in this encounter* Nighat Bazzi [facility] - 02/14/2020 3:00 PM EDT Patient states no visible blood in urine and no black tarry stool. No change in other medications. Patient states she has had a headache and shortness of breath since starting Droxidopa. Patient has follow up appt with Dr Moore today and will discuss at that visit. Will return to clinic in 3 weeks.Patient will continue warfarin dosage of warfarin 7.5 mg Thursday and Thursday and 5 mg all other days.Saw patient KALEN. CLINICAL PHARMACY CONSULT: MED RECONCILIATION/REVIEW ADDENDUM For Pharmacy Admin Tracking Only PHSO: Yes Total # of Interventions Recommended: 1 - Updated Order #: 1 Updated Order Reason(s): Other - Maintenance Safety Lab Monitoring #: 1 Total Interventions Accepted: 2 Time Spent (min): 30 Nighat Bazzi RPh [facility] Clinical Pharmacy documented in this encounter* Eryn Carbajal RN - 04/06/2020 11:35 AM EDT Patient leaving floor at this time via wheelchair. Belongings in hand. * Eryn Carbajal RN - 04/06/2020 11:21 AM EDT Discharge instructions reviewed with patient and family at this time. Patient and family verbalize understanding, deny questions at this time. Will escort patient to private car shortly. * Toni Moore MD - 04/06/2020 10:47 AM EDT Patient: Leyla Lambert : 1940 Date of Admission: 04/03/2020 Primary Care Physician: Epi Andrews Today's Date: 04/06/2020 REASON FOR CONSULTATION: paroxysmal atrial fibrillation, Sotalol loading, HPI: Ms. Lambert is a 79 y.o. female who has been electively admitted to the hospital for sotalol loading because of recurrent, symptomatic, paroxysmal atrial fibrillation. Ms. Lambert has a history of paroxysmal atrial fibrillation in the past but just recently was found to have a pretty severe episode associated with chest pain and shortness of breath this last Thursday on her pacemaker. Having said this, Ms. Lambert denies any current symptoms of chest pain, chest pressure or other symptoms. Ms. Lambert denies any known history of heart problems in the past including heart attacks. Ms. Lambert is on day 4 of Sotalol loading. She says she feels ready to go home. She denied any current or recent chest pain, abdominal pain, bleeding problems, problems with her medications or any other concerns at this time. She does report a bit of lightheadedness and dizziness today but says this is not unusual for her. Past Medical History: Diagnosis Date Abnormal echocardiogram 02/13/12 EF greater than 55%. Mild diastolic dysfunction. Mild to moderate MR. Abnormal PFT 02/25/12 moderate obstructive lung disease responsive to bronchodilators Blood disorder MTHR GENE MUTATION Blood transfusion reaction Bronchial asthma 06/21/2012 COPD CAD (coronary artery disease) 06/03/2010 Patent 1st diagonal stents x 2. 50-60% proximal RCA stenosis. CAD (coronary artery disease) 03/03/14 EF 55%, 70% proximal stenosis in a moderate sized OM2 branch of the Cx, 60-70% proximal RCA stenosis. Cancer (FORM[facility]) 1989,1991 breast cancer bilateral mastectomy Chronic cough 06/21/2012 COPD (chronic obstructive pulmonary disease) ([facility]) H/O cardiac catheterization 04/27/15 LMCA: Normal 0% stenosis. LAD: Mild Irregularities 10-20%. Patent stent In D1. LCx: Mild Irregularities 10-20%.Lesion on 1st Ob Soraya: Proximal subsection. 60% stenosis. RCA: Lesion on ProxRCA: Distalsubsection. 55% stenosis. H/O cardiac catheterization 03/20/2017 LMCA: Mild irregularities 10-20%. LAD: Lesion on Mid LAD. Mid subsection. 70% stenosis. Comments: Hazy in stent restenosis. On engagement of the left main she developed hypotension in 60s-70s systolic w/noticeable ST elevation in the inferior leads. Disengagement is resolved. However on re-engagement the signs returned but again resolved on disengagement. EF:65% H/O cardiovascular stress test 12/19/2016 No signficant electrocardiographic evidence of myocardial ischemia during EKG monitoring without signficant associated arrhythmias. Patient HR went up to 66% of predicted at peak exertion which suggests only mild to moderate chronotropic incompetence. Clinical correlated required. H/O echocardiogram 11/20/15 EF:65%. Mildly increased LV wall thickness. Mild mitral and tricuspid regurgitation. Mild pulmonaryhypertension with an estimated RV systolic pressure of 31 mmHg. Evidence of moderate diastolic dysfunction is seen. H/O echocardiogram 03/10/2017 Global LV systolic function is normal EF:>55%. LA normal in size. RA normal in size. Aortic valve structure and function normal. Mitral leaflets appear to be normal. Trace circumferential pericardial effusion is noted. Hiatal hernia History of blood clots 2007 had [place] filter put in by Dr. Alexander History of DVT (deep vein thrombosis) 1989 Hx of 5 History of pulmonary embolus (PE) 2007 She has a known gene deficiency/hypercoag state Hx of blood clots Hyperlipidemia Hypertension Hyperthyroidism CARISA on CPAP 11/19/2015 Pacemaker 03/04/2017 Dr. Malorie Talley Pulmonary hypertension (HCC) patient states mild S/P cardiac cath 02/13/2012 EF >55%. Patent 1st diagonal stent. 50-60% proximal RCA stenosis. S/P cardiac cath 03/20/2017 PCI Ulcer in stomach Unspecified sleep apnea uses C Pap mx CURRENT ALLERGIES: Latex; Droxidopa; Acetaminophen-codeine; Tylenol with codeine [acetaminophen-codeine]; Gold; Nickel; Seasonal; Holiday; and Gold-containing drug products REVIEW OF SYSTEMS: 14 systems were reviewed. Pertinent positives and negatives as above, all else negative. Past Surgical History: Procedure Laterality Date ABDOMEN SURGERY BREAST SURGERY BILATERAL MASTECTOMY CARDIAC CATHETERIZATION 04/28/2018 RIGHT AND LEFT HEART CATHERIZATION CARDIAC CATHETERIZATION 04/27/2015 Lesion on Prox RCA: Distal subsection.55% stenosis / LAD: Mild irregularities 10-20%.Patent stent in D1 / Lesion on 1st Ob Soraya: Proximal subsection.60% stenosis. 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 LMCA-normal, LAD-patent stent, CX-normal, RCA-30%,EF55-60% ENDOSCOPY, COLON, DIAGNOSTIC EYE SURGERY bilateral cataracts HYSTERECTOMY PARTIAL JOINT REPLACEMENT Right 01/31/13 knee JOINT REPLACEMENT Right 01/2013 KNEE ARTHROSCOPY Right KNEE SURGERY Right 12/2013 scraped knee cap PACEMAKER INSERTION Left 03/04/2017 PACEMAKER INSERTION PERMANENT performed by Reynold Gunn MD at [facility] OR [place] SURGERY Right VENA CAVA FILTER PLACEMENT 2007 Social History: Social History Tobacco Use Smoking status: Former Smoker Packs/day: 2.00 Years: 29.00 Pack years: 58.00 Types: Cigarettes Last attempt to quit: 02/05/1987 Years since quittin.1 Smokeless tobacco: Never Used Substance Use Topics Alcohol use: No Drug use: No CURRENT MEDICATIONS: Outpatient Medications Marked as Taking for the 04/03/20 encounter (Hospital Encounter) Medication Sig Dispense Refill tiotropium (SPIRIVA RESPIMAT) 2.5 MCG/ACT AERS inhaler Inhale 1 puff into the lungs 2 times daily Patient can NOT afford 1 Inhaler 2 hydrALAZINE (APRESOLINE) 25 MG tablet Take 1 tablet by mouth every 4 hours as needed (for sbp > 180) 90 tablet 3 losartan (COZAAR) 100 MG tablet Take 1 tablet daily. Hold if SBP < 110 90 tablet 3 [START ON 04/07/2020] sotalol (BETAPACE) 120 MG tablet Take 1 tablet by mouth daily 60 tablet 3 fludrocortisone (FLORINEF) 0.1 MG tablet Take 0.1 mg by mouth daily warfarin (COUMADIN) 5 MG tablet Take 1 tablet by mouth daily Coumadin Clinic: 7.5 mg Mon, w, Fri; 5t thus sat sun mg all other (Patient taking differently: Take 5 mg by mouth daily Coumadin Clinic: 7.5 mg Mon, Fri; 5 t wed thus sat sun mg all other) 90 tablet 3 carvedilol (COREG) 3.125 MG tablet Take 1 tablet by mouth 2 times daily (with meals) 180 tablet 3 levothyroxine (SYNTHROID) 100 MCG tablet Take 100 mcg by mouth Daily Roflumilast (DALIRESP) 500 MCG tablet Take 500 mcg by mouth daily doxycycline monohydrate (MONODOX) 100 MG capsule Take 100 mg by mouth 2 times daily carbidopa-levodopa (SINEMET) 25-100 MG per tablet Take 1 tablet by mouth every evening aspirin 81 MG EC tablet Take 1 tablet by mouth daily 30 tablet 6 traZODone (DESYREL) 150 MG tablet Take 150 mg by mouth nightly. FAMILY HISTORY: family history includes Cancer in her mother. PHYSICAL EXAM: BP (!) 153/92 Pulse 92 Temp 98.2 F (36.8 C) (Temporal) Resp 16 Ht 5' 3 (1.6 m) Wt 132 lb11.2 oz (60.2 kg) SpO2 97% BMI 23.51 kg/m Body mass index is 23.51 kg/m . [ INSTRUCTIONS: [x] Indicates a positive item [] Indicates a negative item Vital Signs: (As obtained by patient/caregiver or practitioner observation) Blood pressure- Heart rate- Respiratory rate- Temperature- Pulse oximetry- Constitutional: [x] Appears well-developed and well-nourished [x] No apparent distress [] Abnormal- Mental status [x] Alert and awake [x] Oriented to person/place/time [x]Able to follow commands Eyes: EOM [x] Normal [] Abnormal- Sclera [x] Normal [] Abnormal - Discharge [x] None visible [] Abnormal - HENT: [x] Normocephalic, atraumatic. [] Abnormal [] Mouth/Throat: Mucous membranes are moist. External Ears [x] Normal [] Abnormal- Neck: [x] No visualized mass Pulmonary/Chest: [x] Respiratory effort normal. [x] No visualized signs of difficulty breathing or respiratory distress [] Abnormal- Neurological: [x] No Facial Asymmetry (Cranial nerve 7 motor function) (limited exam to video visit) [] No gaze palsy [] Abnormal- Skin: [x] No significant exanthematous lesions or discoloration noted on facial skin [] Abnormal- Psychiatric: [x] Normal Affect [] No Hallucinations [] Abnormal- Other pertinent observable physical exam findings: None MOST RECENT LABS ON RECORD: Lab Results Component Value Date WBC 7.8 04/06/2020 HGB 11.6 (L) 04/06/2020 HCT 37.4 04/06/2020 PLT 345 04/06/2020 CHOL 158 02/12/2012 TRIG 147 02/12/2012 HDL 40 (L) 02/12/2012 ALT 6 04/26/2018 AST 15 04/26/2018 NA 138 04/06/2020 K 3.7 04/06/2020 CL 109 (H) 04/06/2020 CREATININE 0.93 (H) 04/06/2020 BUN 23 04/06/2020 CO2 21 04/06/2020 TSH 0.06 (L) 04/25/2018 INR 2.0 04/06/2020 BNP 35 02/12/2012 ASSESSMENT: Patient Active Problem List Diagnosis Date Noted Encounter for monitoring sotalol therapy Priority: High PAF (paroxysmal atrial fibrillation) ([facility]) 04/02/2020 Priority: High Essential hypertension 12/19/2019 Priority: High Dysautonomia orthostatic hypotension syndrome ([facility]) 05/30/2019 Priority: High Stage 2 moderate COPD by GOLD classification ([facility]) Priority: Low Chronic kidney disease 03/10/2017 Priority: Low CARISA on CPAP 11/19/2015 Priority: Low MTHFR mutation ([facility]) 03/22/2015 Priority: Low retirement 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 02/22/2015 Priority: Low S/P coronary artery stent placement on 03/20/17 12/18/2014 Priority: Low Chronic diastolic CHF (congestive heart failure), NYHA class 3 ([facility]) 12/18/2014 Priority: Low CAD (coronary artery disease) 03/03/2014 Priority: Low History of pulmonary embolus (PE) Priority: Low Bronchial asthma 06/21/2012 Priority: Low Pulmonary hypertension (HCC) 02/06/2012 Priority: Low Atrial fibrillation (HCC) 04/03/2020 PLAN: Ms. Lambert clearly has paroxysmalatrial fibrillation, and given what appears to be a rate control failure, I think he would potentially benefit from Sotalol loading. Because of her renal function, juan carlosll plan to continue her Sotalol to 120 mg daily as her QTc has remained below 500 ms. We will Because of her frequent bouts of hypotension related to her dysautonomia I went ahead and also stopped her amlodipine 2.5 mg daily. I saw her repeat ECG this morning and am fine with her being discharged home now. Once again, thank you for allowing me to participate in this patients care. Please do not hesitate to contact me could I be of further assistance. Sincerely, Toni Moore MD, MS, [facility] Interpretive Program Coordinator [address] [place] [address] , I believe that the risk of significant morbidity and mortality related to the patient's current medical conditions are: Intermediate. April 06, 2020 Leyla Lambert is a 79 y.o. female being evaluated by a Virtual Visit (video visit) encounter to address concerns as mentioned above. A caregiver was present when appropriate. Due to this being a TeleHealth encounter (During COVID-19 public health emergency), evaluation of the following organ systems was limited: Vitals/Constitutional/EENT/Resp/CV/GI//MS/Neuro/Skin/Qqyl-Wnefm-Vza. Pursuant to the emergency declaration under the Nathan Act and the National Emergencies Act, 1135 waiver authority and the Coronavirus Preparedness and Response Supplemental Appropriations Act, this Virtual Visit was conducted with patient's (and/or legal guardian's) consent, to reduce the patient's risk of exp osure to COVID-19 and provide necessary medical care. The patient (and/or legal guardian) has also been advised to contact this office for worsening conditions or problems, and seek emergency medicaltreatment and/or call 911 if deemed necessary. Services were provided through a video synchronous discussion virtually to substitute for in-personclinic visit. Patient and provider were located at their individual homes. --TONI MOORE MD on 04/06/2020 at 10:50 AM An electronic signature was used to authenticate this note. * Henna Bravo RP - 04/06/2020 6:50 AM EDT [facility] Department Clinical Pharmacy Note Warfarin consult follow-up INR (no units) Date Value 04/06/2020 2.0 04/05/2020 2.1 04/04/2020 1.8 04/03/2020 1.6 02/14/2020 2.4 01/25/2020 3.6 12/14/2019 2.7 Hemoglobin (g/dL) Date Value 04/06/2020 11.6 (L) 04/05/2020 11.7 (L) 04/04/2020 12.0 Hematocrit (%) Date Value 04/06/2020 37.4 04/05/2020 36.9 04/04/2020 38.9 Platelets (k/uL) Date Value 04/06/2020 345 04/05/2020 324 04/04/2020 342 Target INR Range: 2.0-3.0 Significant Drug-Drug Interactions: New warfarin drug-drug interactions: no changes Discontinued drug-drug interactions: no changes Notes: Patient to take home dose of warfarin 7.5mg po today. Daily PT/INR until stable within therapeutic range. Thank you, Henna Bravo, Maddi.Ph., 04/06/2020,6:50 AM * Penelope Chen, RN - 04/05/2020 7:00 PM EDT Patient assessment and vitals completed. Patient is SOB post walking in [place]. She also complains ofchest pressure, this is not na new symptom and occurs when she gets SOB. Patient encouraged to deepbreathe. Patient denies dizziness. See charting on assessment. Patient denies further needs at thistime * Mar Medrano RN - 04/05/2020 1:55 PM EDT Assessment and vitals obtained at this time, see flowsheet. Patient states she is feeling better. Denies dizziness at rest, denies pain/discomfort in head. No sob at rest. MARVIN Beckford updated. * Toni Moore MD - 04/05/2020 1:26 PM EDT Patient: Leyla Lambert : 1940 Date of Admission: 04/03/2020 Primary Care Physician: Epi Andrews Today's Date: 04/05/2020 REASON FOR CONSULTATION: paroxysmal atrial fibrillation, Sotalol loading, HPI: Ms. Lambert is a 79 y.o. female who has been electively admitted to the hospital for sotalol loading because of recurrent, symptomatic, paroxysmal atrial fibrillation. Ms. Lambert has a history of paroxysmal atrial fibrillation in the past but just recently was found to have a pretty severe episode associated with chest pain and shortness of breath this last Thursday on her pacemaker. Having said this, Ms. Lambert denies any current symptoms of chest pain, chest pressure or other symptoms. Ms. Lambert denies any known history of heart problems in the past including heart attacks. Ms. Lambert is on day 3 of Sotalol loading. She denied any current or recent chest pain, abdominal pain, bleeding problems, problems with her medications or any other concerns at this time. She does report a bit of lightheadedness and dizziness today but says this is not unusual for her. Past Medical History: Diagnosis Date Abnormal echocardiogram 02/13/12 EF greater than 55%. Mild diastolic dysfunction. Mild to moderate MRRuddy Abnormal PFT 02/25/12 moderate obstructive lung disease responsive to bronchodilators Blood disorder MTHR GENE MUTATION Blood transfusion reaction Bronchial asthma 06/21/2012 COPD CAD (coronary artery disease) 06/03/2010 Patent 1st diagonal stents x 2. 50-60% proximal RCA stenosis. CAD (coronary artery disease) 03/03/14 EF 55%, 70% proximal stenosis in a moderate sized OM2 branch of the Cx, 60-70% proximal RCA stenosis. Cancer (FORM[facility]) 1989,1991 breast cancer bilateral mastectomy Chronic cough 06/21/2012 COPD (chronic obstructive pulmonary disease) ([facility]) H/O cardiac catheterization 04/27/15 LMCA: Normal 0% stenosis. LAD: Mild Irregularities 10-20%. Patent stent In D1. LCx: Mild Irregularities 10-20%.Lesion on 1st Ob Soraya: Proximal subsection. 60% stenosis. RCA: Lesion on ProxRCA: Distalsubsection. 55% stenosis. H/O cardiac catheterization 03/20/2017 LMCA: Mild irregularities 10-20%. LAD: Lesion on Mid LAD. Mid subsection. 70% stenosis. Comments: Hazy in stent restenosis. On engagement of the left main she developed hypotension in 60s-70s systolic w/noticeable ST elevation in the inferior leads. Disengagement is resolved. However on re-engagement the signs returned but again resolved on disengagement. EF:65% H/O cardiovascular stress test 12/19/2016 No signficant electrocardiographic evidence of myocardial ischemia during EKG monitoring without signficant associated arrhythmias. Patient HR went up to 66% of predicted at peak exertion which suggests only mild to moderate chronotropic incompetence. Clinical correlated required. H/O echocardiogram 11/20/15 EF:65%. Mildly increased LV wall thickness. Mild mitral and tricuspid regurgitation. Mild pulmonaryhypertension with an estimated RV systolic pressure of 31 mmHg. Evidence of moderate diastolic dysfunction is seen. H/O echocardiogram 03/10/2017 Global LV systolic function is normal EF:>55%. LA normal in size. RA normal in size. Aortic valve structure and function normal. Mitral leaflets appear to be normal. Trace circumferential pericardial effusion is noted. Hiatal hernia History of blood clots 2007 had [place] filter put in by Dr. Alexander History of DVT (deep vein thrombosis) 1989 Hx of 5 History of pulmonary embolus (PE) 2007 She has a known gene deficiency/hypercoag state Hx of blood clots Hyperlipidemia Hypertension Hyperthyroidism CARISA on CPAP 11/19/2015 Pacemaker 03/04/2017 Dr. Malorie Talley Pulmonary hypertension ([facility]) patient states mild S/P cardiac cath 02/13/2012 EF >55%. Patent 1st diagonal stent. 50-60% proximal RCA stenosis. S/P cardiac cath 03/20/2017 PCI Ulcer in stomach Unspecified sleep apnea uses C Pap mx CURRENT ALLERGIES: Latex; Droxidopa; Acetaminophen-codeine; Tylenol with codeine [acetaminophen-codeine]; Gold; Nickel; Seasonal; Holiday; and Gold-containing drug products REVIEW OF SYSTEMS: 14 systems were reviewed. Pertinent positives and negatives as above, all else negative. Past Surgical History: Procedure Laterality Date ABDOMEN SURGERY BREAST SURGERY BILATERAL MASTECTOMY CARDIAC CATHETERIZATION 04/28/2018 RIGHT AND LEFT HEART CATHERIZATION CARDIAC CATHETERIZATION 04/27/2015 Lesion on Prox RCA: Distal subsection.55% stenosis / LAD: Mild irregularities 10-20%.Patent stent in D1 / Lesion on 1st Ob Soraya: Proximal subsection.60% stenosis. 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 LMCA-normal, LAD-patent stent, CX-normal, RCA-30%,EF55-60% ENDOSCOPY, COLON, DIAGNOSTIC EYE SURGERY bilateral cataracts HYSTERECTOMY PARTIAL JOINT REPLACEMENT Right 01/31/13 knee JOINT REPLACEMENT Right 01/2013 KNEE ARTHROSCOPY Right KNEE SURGERY Right 12/2013 scraped knee cap PACEMAKER INSERTION Left 03/04/2017 PACEMAKER INSERTION PERMANENT performed by Reynold Gunn MD at [facility] P[facility]LLA SURGERY Right VENA CAVA FILTER PLACEMENT 2007 Social History: Social History Tobacco Use Smoking status: Former Smoker Packs/day: 2.00 Years: 29.00 Pack years: 58.00 Types: Cigarettes Last attempt to quit: 02/05/1987 Years since quittin.1 Smokeless tobacco: Never Used Substance Use Topics Alcohol use: No Drug use: No CURRENT MEDICATIONS: Outpatient Medications Marked as Taking for the 04/03/20 encounter (Hospital Encounter) Medication Sig Dispense Refill fludrocortisone (FLORINEF) 0.1 MG tablet Take 0.1 mg by mouth daily warfarin (COUMADIN) 5 MG tablet Take 1 tablet by mouth daily Coumadin Clinic: 7.5 mg Mon, w, Fri; 5t thus sat sun mg all other (Patient taking differently: Take 5 mg by mouth daily Coumadin Clinic: 7.5 mg Mon, Fri; 5 t wed thus sat sun mg all other) 90 tablet 3 amLODIPine (NORVASC) 5 MG tablet Take 0.5 tablets by mouth daily 90 tablet 3 carvedilol (COREG) 3.125 MG tablet Take 1 tablet by mouth 2 times daily (with meals) 180 tablet 3 hydrALAZINE (APRESOLINE) 25 MG tablet Take 1 tablet by mouth See Admin Instructions Pt is to take this medication as needed when her systolic number is above 180 mmHg. Pt can take every four hours asneeded. 90 tablet 3 losartan (COZAAR) 100 MG tablet Take 1 tablet by mouth daily 90 tablet 3 levothyroxine (SYNTHROID) 100 MCG tablet Take 100 mcg by mouth Daily Roflumilast (DALIRESP) 500 MCG tablet Take 500 mcg by mouth daily doxycycline monohydrate (MONODOX) 100 MG capsule Take 100 mg by mouth 2 times daily carbidopa-levodopa (SINEMET) 25-100 MG per tablet Take 1 tablet by mouth every evening aspirin 81 MG EC tablet Take 1 tablet by mouth daily 30 tablet 6 traZODone (DESYREL) 150 MG tablet Take 150 mg by mouth nightly. FAMILY HISTORY: family history includes Cancer in her mother. PHYSICAL EXAM: BP 103/61 Pulse 99 Temp 98 F (36.7 C) (Temporal) Resp 18 Ht 5' 3 (1.6 m) Wt 133 lb 8 oz (60.6 kg) SpO2 97% BMI 23.65 kg/m Body mass index is 23.65 kg/m . Constitutional: She is oriented to person, place, and time. She appears well- developed and well-nourished. In no acute distress. HEENT: Normocephalic and atraumatic.No JVD present. Carotid bruit is not present. No mass and no thyromegaly present. No lymphadenopathy present. Cardiovascular: Normal rate, regular rhythm, normal heart sounds. Exam reveals no gallop and no friction rubs. 1/6 systolic murmur, 5th intercostal space on the LEFT in the mid-clavicular line (cardiac apex). Pulmonary/Chest: Effort normal and breath sounds normal. No respiratory distress. She has no wheezes, rhonchi or rales. Abdominal: Soft, non-tender. Bowel sounds and aorta are normal. She exhibits noorganomegaly, mass or bruit. Extremities: None. No cyanosis or clubbing. 2+ radial and carotid pulses. Distal extremity pulses: 2+ bilaterally. Neurological: She is alert and oriented to person, place, and time. No evidence of gross cranial nerve deficit. Coordination appeared normal. Skin: Skin is warm and dry. There is no rash or diaphoresis. Psychiatric: She has a normal mood and affect. Her speech is normal and behavior is normal. MOST RECENT LABS ON RECORD: Lab Results Component Value Date WBC 8.2 04/05/2020 HGB 11.7 (L) 04/05/2020 HCT 36.9 04/05/2020 PLT 324 04/05/2020 CHOL 158 02/12/2012 TRIG 147 02/12/2012 HDL 40 (L) 02/12/2012 ALT 6 04/26/2018 AST 15 04/26/2018 NA 141 04/05/2020 K 4.1 04/05/2020 CL 111 (H) 04/05/2020 CREATININE 0.87 04/05/2020 BUN 20 04/05/2020 CO2 22 04/05/2020 TSH 0.06 (L) 04/25/2018 INR 2.1 04/05/2020 BNP 35 02/12/2012 ASSESSMENT: Patient Active Problem List Diagnosis Date Noted Encounter for monitoring sotalol therapy Priority: High PAF (paroxysmal atrial fibrillation) ([facility]) 04/02/2020 Priority: High Essential hypertension 12/19/2019 Priority: High Dysautonomia orthostatic hypotension syndrome ([facility]) 05/30/2019 Priority: High Stage 2 moderate COPD by GOLD classification ([facility]) Priority: Low Chronic kidney disease 03/10/2017 Priority: Low CARISA on CPAP 11/19/2015 Priority: Low MTHFR mutation ([facility]) 03/22/2015 Priority: Low retirement 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 02/22/2015 Priority: Low S/P coronary artery stent placement on 03/20/17 12/18/2014 Priority: Low Chronic diastolic CHF (congestive heart failure), NYHA class 3 ([facility]) 12/18/2014 Priority: Low CAD (coronary artery disease) 03/03/2014 Priority: Low History of pulmonary embolus (PE) Priority: Low Bronchial asthma 06/21/2012 Priority: Low Pulmonary hypertension (HCC) 02/06/2012 Priority: Low Atrial fibrillation ([facility]) 04/03/2020 PLAN: Ms. Lambert clearly has paroxysmalatrial fibrillation, and given what appears to be a rate control failure, I think he would potentially benefit from Sotalol loading. Because of her renal function, ruth plan to reduce her Sotalol to 120 mg daily. We will also need repeat ECGs to be done 2-3 hoursafter each dose with the ECGs e-mail to me. No additional dose of sotalol should be given until each ECG's QTc is confirmed to be less than 500 ms. If his QTC goes over 500 after the first dose will plan on making a dosing adjustment, but after that we will have to discontinue Sotalol loading if her QTc goes over 500 ms. We will plan on loading the medication over 3 days. Finally, I would like to have her BMP and magnesium levels repeated daily. Once again, thank you for allowing me to participate in this patients care. Please do not hesitate to contact me could I be of further assistance. Sincerely, Toni Moore MD, MS, [facility] Interpretive Program Coordinator [address] [place] [address] , I believe that the risk of significant morbidity and mortality related to the patient's current medical conditions are: Intermediate. April 05, 2020 * Mar Medrano RN - 04/05/2020 11:16 AM EDT Patient continues to c/o dizziness, pounding head, sob at rest. Reports chest pressure to midsternum. Also c/o dry mouth. MARVIN Beckford aware of all. Orders received. EKG obtained, faxed to Dr. Moore * Mar Medrano RN - 04/05/2020 10:24 AM EDT Patient continues to rest in bed with eyes closed. Respirations easy, unlabored. No dyspnea noted. No s/s discomfort or distress. Call light in reach. * Mar Medrano RN - 04/05/2020 9:41 AM EDT Patient up to bathroom, c/o's increased dizziness, pounding head , and sob. Assisted back to bed by nurse, very unsteady. Vitals obtained, see flowsheet. Resting with eyes closed, call light in reach. Will continue to monitor. * Mar Medrano RN - 04/05/2020 8:43 AM EDT BP 98/57. Dr. Reardon aware, at bedside. Cozaar and Norvasc held at this time per parameters. * Mar Medrano RN - 04/05/2020 8:38 AM EDT Ok to give sotalol per Dr. Moore, admin at this time * Mar Medrano RN - 04/05/2020 7:21 AM EDT Patient is alert and oriented. Hypotensive initially, asymptomatic at rest. Ortho BP's obtained, see flow sheet. Patient admits to some dizziness upon standing, resolves quickly. Patient reports thisis her norm at home, currently no better or worse than usual. Aware of need to rise slowly prior toambulating. HR is tachy initially, fluctuates during assessment but remains 90-100s. Patient denies any chest pain or palpitations. No sob noted at rest. Resting in bed at this time, denies needs, call light in reach. * Penelope Chen RN - 04/04/2020 11:46 PM EDT Patient EKG per protocol for sotalol therapy done and emailed/faxed to Dr Moore * Penelope Chen RN - 04/04/2020 9:08 PM EDT Patient would like to wait until 2200 for her trazodone, all other meds given at this time. * Penelope Chen RN - 04/04/2020 7:00 PM EDT Patient assessment and vitals completed. Patient denies any pain, or dizziness at this time. She did complain of some ESOB after walking. Oxygen saturation is 97%. Patient denies any further needs, nurse will continue to monitor * Toni Moore MD - 04/04/2020 5:22 PM EDT I, Kristina Pérez am scribing for and in the presence of Toni Moore MD, MS, F.A.C.C.. Patient: Leyla Lambert : 1940 Date of Admission: 04/03/2020 Primary Care Physician: Epi Andrews Today's Date: 04/04/2020 REASON FOR CONSULTATION: paroxysmal atrial fibrillation, Sotalol loading, HPI: Ms. Lambert is a 79 y.o. female who has been electively admitted to the hospital for sotalol loading because of recurrent, symptomatic, paroxysmal atrial fibrillation. Ms. Lambert has a history of paroxysmal atrial fibrillation in the past but just recently was found to have a pretty severe episode associated with chest pain and shortness of breath this last Thursday on her pacemaker. Having said this, Ms. Lambert denies any current symptoms of chest pain, chest pressure or other symptoms. Ms. Lambert denies any known history of heart problems in the past including heart attacks. Ms. Lambert is on day 2 of Sotalol loading. She denied any current or recent chest pain, abdominal pain, bleeding problems, problems with her medications or any other concerns at this time. Past Medical History: Diagnosis Date Abnormal echocardiogram 02/13/12 EF greater than 55%. Mild diastolic dysfunction. Mild to moderate MR. Abnormal PFT 02/25/12 moderate obstructive lung disease responsive to bronchodilators Blood disorder MTHR GENE MUTATION Blood transfusion reaction Bronchial asthma 06/21/2012 COPD CAD (coronary artery disease) 06/03/2010 Patent 1st diagonal stents x 2. 50-60% proximal RCA stenosis. CAD (coronary artery disease) 03/03/14 EF 55%, 70% proximal stenosis in a moderate sized OM2 branch of the Cx, 60-70% proximal RCA stenosis. Cancer (HCC) 1989,1991 breast cancer bilateral mastectomy Chronic cough 06/21/2012 COPD (chronic obstructive pulmonary disease) ([facility]) H/O cardiac catheterization 04/27/15 LMCA: Normal 0% stenosis. LAD: Mild Irregularities 10-20%. Patent stent In D1. LCx: Mild Irregularities 10-20%.Lesion on 1st Ob Soraya: Proximal subsection. 60% stenosis. RCA: Lesion on ProxRCA: Distalsubsection. 55% stenosis. H/O cardiac catheterization 03/20/2017 LMCA: Mild irregularities 10-20%. LAD: Lesion on Mid LAD. Mid subsection. 70% stenosis. Comments: Hazy in stent restenosis. On engagement of the left main she developed hypotension in 60s-70s systolic w/noticeable ST elevation in the inferior leads. Disengagement is resolved. However on re-engagement the signs returned but again resolved on disengagement. EF:65% H/O cardiovascular stress test 12/19/2016 No signficant electrocardiographic evidence of myocardial ischemia during EKG monitoring without signficant associated arrhythmias. Patient HR went up to 66% of predicted at peak exertion which suggests only mild to moderate chronotropic incompetence. Clinical correlated required. H/O echocardiogram 11/20/15 EF:65%. Mildly increased LV wall thickness. Mild mitral and tricuspid regurgitation. Mild pulmonaryhypertension with an estimated RV systolic pressure of 31 mmHg. Evidence of moderate diastolic dysfunction is seen. H/O echocardiogram 03/10/2017 Global LV systolic function is normal EF:>55%. LA normal in size. RA normal in size. Aortic valve structure and function normal. Mitral leaflets appear to be normal. Trace circumferential pericardial effusion is noted. Hiatal hernia History of blood clots 2007 had [place] filter put in by Dr. Alexander History of DVT (deep vein thrombosis) 1989 Hx of 5 History of pulmonary embolus (PE) 2007 She has a known gene deficiency/hypercoag state Hx of blood clots Hyperlipidemia Hypertension Hyperthyroidism CARISA on CPAP 11/19/2015 Pacemaker 03/04/2017 Dr. Malorie Talley Pulmonary hypertension (HCC) patient states mild S/P cardiac cath 02/13/2012 EF >55%. Patent 1st diagonal stent. 50-60% proximal RCA stenosis. S/P cardiac cath 03/20/2017 PCI Ulcer in stomach Unspecified sleep apnea uses C Pap mx CURRENT ALLERGIES: Latex; Droxidopa; Acetaminophen-codeine; Tylenol with codeine [acetaminophen-codeine]; Gold; Nickel; Seasonal; Holiday; and Gold-containing drug products REVIEW OF SYSTEMS: 14 systems were reviewed. Pertinent positives and negatives as above, all else negative. Past Surgical History: Procedure Laterality Date ABDOMEN SURGERY BREAST SURGERY BILATERAL MASTECTOMY CARDIAC CATHETERIZATION 04/28/2018 RIGHT AND LEFT HEART CATHERIZATION CARDIAC CATHETERIZATION 04/27/2015 Lesion on Prox RCA: Distal subsection.55% stenosis / LAD: Mild irregularities 10-20%.Patent stent in D1 / Lesion on 1st Ob Soraya: Proximal subsection.60% stenosis. 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 LMCA-normal, LAD-patent stent, CX-normal, RCA-30%,EF55-60% ENDOSCOPY, COLON, DIAGNOSTIC EYE SURGERY bilateral cataracts HYSTERECTOMY PARTIAL JOINT REPLACEMENT Right 01/31/13 knee JOINT REPLACEMENT Right 01/2013 KNEE ARTHROSCOPY Right KNEE SURGERY Right 12/2013 scraped knee cap PACEMAKER INSERTION Left 03/04/2017 PACEMAKER INSERTION PERMANENT performed by Reynold Gunn MD at [facility] OR [place] SURGERY Right VENA CAVA FILTER PLACEMENT 2007 Social History: Social History Tobacco Use Smoking status: Former Smoker Packs/day: 2.00 Years: 29.00 Pack years: 58.00 Types: Cigarettes Last attempt to quit: 02/05/1987 Years since quittin.1 Smokeless tobacco: Never Used Substance Use Topics Alcohol use: No Drug use: No CURRENT MEDICATIONS: Outpatient Medications Marked as Taking for the 04/03/20 encounter (Hospital Encounter) Medication Sig Dispense Refill fludrocortisone (FLORINEF) 0.1 MG tablet Take 0.1 mg by mouth daily warfarin (COUMADIN) 5 MG tablet Take 1 tablet by mouth daily Coumadin Clinic: 7.5 mg Mon, w, Fri; 5t thus sat sun mg all other (Patient taking differently: Take 5 mg by mouth daily Coumadin Clinic: 7.5 mg Mon, Fri; 5 t wed thus sat sun mg all other) 90 tablet 3 amLODIPine (NORVASC) 5 MG tablet Take 0.5 tablets by mouth daily 90 tablet 3 carvedilol (COREG) 3.125 MG tablet Take 1 tablet by mouth 2 times daily (with meals) 180 tablet 3 hydrALAZINE (APRESOLINE) 25 MG tablet Take 1 tablet by mouth See Admin Instructions Pt is to take this medication as needed when her systolic number is above 180 mmHg. Pt can take every four hours asneeded. 90 tablet 3 losartan (COZAAR) 100 MG tablet Take 1 tablet by mouth daily 90 tablet 3 levothyroxine (SYNTHROID) 100 MCG tablet Take 100 mcg by mouth Daily Roflumilast (DALIRESP) 500 MCG tablet Take 500 mcg by mouth daily doxycycline monohydrate (MONODOX) 100 MG capsule Take 100 mg by mouth 2 times daily carbidopa-levodopa (SINEMET) 25-100 MG per tablet Take 1 tablet by mouth every evening aspirin 81 MG EC tablet Take 1 tablet by mouth daily 30 tablet 6 traZODone (DESYREL) 150 MG tablet Take 150 mg by mouth nightly. FAMILY HISTORY: family history includes Cancer in her mother. PHYSICAL EXAM: BP 139/77 Pulse 92 Temp 98.1 F (36.7 C) (Temporal) Resp 18 Ht 5' 3 (1.6 m) Wt 138 lb 1.6oz (62.6 kg) SpO2 96% BMI 24.46 kg/m Body mass index is 24.46 kg/m . Constitutional: She is oriented to person, place, and time. She appears well- developed and well-nourished. In no acute distress. HEENT: Normocephalic and atraumatic.No JVD present. Carotid bruit is not present. No mass and no thyromegaly present. No lymphadenopathy present. Cardiovascular: Normal rate, regular rhythm, normal heart sounds. Exam reveals no gallop and no friction rubs. 1/6 systolic murmur, 5th intercostal space on the LEFT in the mid-clavicular line (cardiac apex). Pulmonary/Chest: Effort normal and breath sounds normal. No respiratory distress. She has no wheezes, rhonchi or rales. Abdominal: Soft, non-tender. Bowel sounds and aorta are normal. She exhibits noorganomegaly, mass or bruit. Extremities: None. No cyanosis or clubbing. 2+ radial and carotid pulses. Distal extremity pulses: 2+ bilaterally. Neurological: She is alert and oriented to person, place, and time. No evidence of gross cranial nerve deficit. Coordination appeared normal. Skin: Skin is warm and dry. There is no rash or diaphoresis. Psychiatric: She has a normal mood and affect. Her speech is normal and behavior is normal. MOST RECENT LABS ON RECORD: Lab Results Component Value Date WBC 8.3 04/04/2020 HGB 12.0 04/04/2020 HCT 38.9 04/04/2020 PLT 342 04/04/2020 CHOL 158 02/12/2012 TRIG 147 02/12/2012 HDL 40 (L) 02/12/2012 ALT 6 04/26/2018 AST 15 04/26/2018 NA 135 04/04/2020 K 4.0 04/04/2020 CL 107 04/04/2020 CREATININE 0.75 04/04/2020 BUN 14 04/04/2020 CO2 22 04/04/2020 TSH 0.06 (L) 04/25/2018 INR 1.8 04/04/2020 BNP 35 02/12/2012 ASSESSMENT: Patient Active Problem List Diagnosis Date Noted Encounter for monitoring sotalol therapy Priority: High PAF (paroxysmal atrial fibrillation) ([facility]) 04/02/2020 Priority: High Essential hypertension 12/19/2019 Priority: High Dysautonomia orthostatic hypotension syndrome ([facility]) 05/30/2019 Priority: High Atrial fibrillation ([facility]) 04/03/2020 Stage 2 moderate COPD by GOLD classification ([facility]) Chronic kidney disease 03/10/2017 CARISA on CPAP 11/19/2015 MTHFR mutation ([facility]) 03/22/2015 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 02/22/2015 S/P coronary artery stent placement on 03/20/17 12/18/2014 Chronic diastolic CHF (congestive heart failure), NYHA class 3 ([facility]) 12/18/2014 CAD (coronary artery disease) 03/03/2014 History of pulmonary embolus (PE) Bronchial asthma 06/21/2012 Pulmonary hypertension ([facility]) 02/06/2012 PLAN: Ms. Lambert clearly has paroxysmalatrial fibrillation, and given what appears to be a rate control failure, I think he would potentially benefit from Sotalol loading. Therefore I went ahead and started her on Sotalol 120 mg bid. We will also need repeat ECGs to be done 2-3 hours after each dose withthe ECGs e-mail to me. No additional dose of sotalol should be given until each ECG's QTc is confirmed to be less than 500 ms. If his QTC goes over 500 after the first dose will plan on making a dosing adjustment, but after that we will have to discontinue Sotalol loading if her QTc goes over 500 ms. We will plan on loading the medication over 3 days. Finally, I would like to have her BMP and magnesium levels repeated daily. Once again, thank you for allowing me to participate in this patients care. Please do not hesitate to contact me could I be of further assistance. Sincerely, Toni Moore MD, MS, F.Rufina. [facility] Interpretive Program Coordinator [address] [place] [id number] , I believe that the risk of significant morbidity and mortality related to the patient's current medical conditions are: Intermediate. The documentation recorded by the scribe, accurately and completely reflects the services I personally performed and the decisions made by me. Toni Moore MD, MS, Bobbi. April 04, 2020 * Tracy Moore RN - 04/04/2020 12:13 PM EDT EKG faxed to Dr. Moore office at this time. Test Baker also called and notified of sticky note from pharmacy about dosing for Sotolol. Will continue to monitor. * Nighat Bazzi RPH - 04/04/2020 10:55 AM EDT [facility] Inpatient Medication Education Note Patient admitted for sotalol loading. Medications reviewed with the patient include: sotalol (patient education monograph provided), Spiriva, Symbicort, warfarin. Patient is seen at [facility] medication management clinic for warfarin monitoring. Patient rescheduled in clinic for INR check on 04/13/20 at 2:30 pm. Patient education provided when necessary to include potential medication related side effects withacknowledgement of understanding. Nighat Bazzi, 04/04/2020, 10:54 AM * Tracy Moore RN - 04/04/2020 9:[address] Song it is okay for patient to take AM dose of Sotolol. Will continue to monitor. * Tracy Moore RN - 04/04/2020 9:20 AM EDT Patient states feelings of SOB have gotten much better. Test Baker updated patient that we do not carryDaliresp and family will have to bring in her supply. She states she will be fine without it for a few days. * Henna Bravo RP - 04/04/2020 8:30 AM EDT [facility] Department Clinical Pharmacy Note Warfarin consult follow-up INR (no units) Date Value 04/04/2020 1.8 04/03/2020 1.6 02/14/2020 2.4 01/25/2020 3.6 12/14/2019 2.7 11/07/2019 2.2 07/13/2019 1.9 Hemoglobin (g/dL) Date Value 04/04/2020 12.0 04/03/2020 11.3 (L) 07/22/2018 10.4 (L) Hematocrit (%) Date Value 04/04/2020 38.9 04/03/2020 36.8 07/22/2018 33.8 (L) Platelets (k/uL) Date Value 04/04/2020 342 04/03/2020 301 07/22/2018 296 Target INR Range: 2.0-3.0 Significant Drug-Drug Interactions: New warfarin drug-drug interactions: no changes Discontinued drug-drug interactions: no changes Notes: Patient to take warfarin 5mg po today. Patient restarted warfarin on 03/26 after pacemaker placement with large hematoma at surgical site. Daily PT/INR until stable within therapeutic range. Thank you, Henna Bravo, R.Ph., 04/04/2020,8:30 AM * Analy Starks APRN - JESSICA - 04/04/2020 8:09 AM EDT Progress Note SUBJECTIVE: F/u on PAF and Sotalol loading OBJECTIVE: Resting in bed alert and oriented. Complaining of SOB and heaviness in her chest. Stephon did not have her Spiriva or Symbicort last evening. She says sometimes she gets like that without it. Denies palpitations. Denies diaphoresis. Denies dizziness or syncope Vitals: Vitals: 04/04/20 0745 BP: 138/89 Pulse: 91 Resp: 17 Temp: 98.4 F (36.9 C) SpO2: 96% Weight: 138 lb 1.6 oz (62.6 kg) Height: 5' 3 (160 cm) Exam: CONSTITUTIONAL: awake, alert, cooperative, no apparent distress, and appears stated age EYES: Lids and lashes normal, pupils equal, round and reactive to light, extra ocular muscles intact, sclera clear, conjunctiva normal ENT: normocepalic, without obvious abnormality, atraumatic NECK: supple, symmetrical, trachea midline, skin normal and no stridor HEMATOLOGIC/LYMPHATICS: no cervical lymphadenopathy and no supraclavicular lymphadenopathy LUNGS: No increased work of breathing, good air exchange, clear to auscultation bilaterally, no crackles or wheezing CARDIOVASCULAR: regular rate and rhythm, Paced 1:1, normal S1 and S2 and no edema ABDOMEN: No scars, normal bowel sounds, soft, non-distended, non-tender, no masses palpated, no hepatosplenomegally MUSCULOSKELETAL: there is no redness, warmth, or swelling of the joints full range of motion noted motor strength is 5 out of 5 all extremities bilaterally tone is normal NEUROLOGIC: Mental Status Exam: Level of Alertness: awake Orientation: person, place, time Memory: normal SKIN: no bruising or bleeding, normal skin color, texture, turgor, no redness, warmth, or swelling,no rashes and no lesions EXT: no cyanosis, clubbing or edema present Diagnostic Data: Reviewed ASSESSMENT: Active Problems: Encounter for monitoring sotalol therapy Atrial fibrillation (HCC) Resolved Problems: * No resolved hospital problems. * PLAN: Paroxysmal atrial fibrillation ? Admission for Sotalol loading--Day 2 today ? Continue Coreg, Warfarin Hypertension ? Continue amlodipine, coreg, losartan ? Monitor for orthostatic hypotension, which pt has h/o (on florinef) Coronary artery disease ? Continue ASA, Coreg COPD ? Continue Daliresp ? Start Symbicort and Spiriva this am CARISA ? May use home CPAP machine Nutrition status: Well developed, well nourished with no malnutrition DVT prophylaxis: Warfarin High risk medications: Sotalol Disposition: Discharge plan is home Analy Starks APRN, SIMULATION DEVELOPER-C Associated attestation - Karsten Dyer MD - 04/04/2020 9:08 AM EDT Karsten Dyer M.D. PA / SIMULATION DEVELOPER Attestation Note 04/04/20 I personally evaluated and examined the patient [id number] in conjunction with the PA/SIMULATION DEVELOPER and agree with the management and dispostition of the patient. Please see the PA/SIMULATION DEVELOPER's note for full details.My carvalho findings are: SUBJECTIVE: Patient seen for follow up of sotalol loading for Atrial fibrillation (HCC). She developed some chest heaviness and SOB last night. Given spiriva and symbicort this AM (usually takes at night but didn't get it last night). Denies fever or cough OBJECTIVE: Vitals: Temp: 98.4 F (36.9 C) BP: 138/89 Resp: 17 Pulse: 91 SpO2: 96 % 24HR INTAKE/OUTPUT: Intake/Output Summary (Last 24 hours) at 04/04/2020 0905 Last data filed at 04/04/2020 0815 Gross per 24 hour Intake 240 ml Output 1050 ml Net -810 ml Exam: GEN: Awake, alert and oriented x3. EYES: EOMI, pupils equal NECK: Supple. No lymphadenopathy. No carotid bruit CVS: regular rate and rhythm, 3/6 systolic murmur PULM: CTA, no wheezes, rales or rhonchi, no acute respiratory distress ABD: Bowels sounds normal. Abdomen is soft. No distention. no tenderness to palpation. EXT: no edema bilaterally . No calf tenderness. NEURO: Moves all extremities. Motor and sensory are grossly intact SKIN: No rashes. No skin lesions. Diagnostic Data: All available data reviewed Lab Results Component Value Date WBC 8.3 04/04/2020 HGB 12.0 04/04/2020 MCV 89.4 04/04/2020 PLT 342 04/04/2020 Lab Results Component Value Date GLUCOSE 93 04/04/2020 BUN 14 04/04/2020 CREATININE 0.75 04/04/2020 NA 135 04/04/2020 K 4.0 04/04/2020 CALCIUM 8.9 04/04/2020 CL 107 04/04/2020 CO2 22 04/04/2020 ASSESSMENT / PLAN: I agree with the assessment and plan as outlined by PA/SIMULATION DEVELOPER below Paroxysmal atrial fibrillation Admission for Sotalol loading Continue Coreg, Warfarin Hypertension Continue amlodipine, coreg, losartan Monitor for orthostatic hypotension, which pt has h/o (on florinef) Coronary artery disease Continue ASA, Coreg COPD Continue Daliresp CARISA May use home CPAP machine Nutrition status: Well developed, well nourished with no malnutrition DVT prophylaxis: Warfarin High risk medications: Sotalol Disposition: Discharge plan is home Karsten Dyer M.D. 04/04/2020 9:05 AM * Kandy Roman LSW - 04/04/2020 7:58 AM EDT Discussed discharge plans with the patient. Patient is a 79 year old female here with Sotalol Loading. She is alert and oriented. Patient is and lives at home with her . She has a cane , walker, and shower chair. Patient does the cooking and the cleaning. She is independent with her ADL's. Patient manages her ownmedications. Her does most of the drive since she has been having issues with her blood pressure.. Her PCP is Epi Andrews. She has medical insurance that helps with medication costs. The discharge plan is home with no services at this time. Patient has advance directives but not onfile. ARTIFICIAL TEETH INSPECTOR to monitor and assist with any needs or concerns as they arise. [address] * Roni Joaquin, OLEKSANDR, LD - 04/04/2020 7:34 AM EDT Comprehensive Nutrition Assessment Type and Reason for Visit: Initial Nutrition Recommendations/Plan: Softer foods Nutrition Assessment: Chewing difficulty r/t alteration in GI system, AEB missing teeth and mouth sore preventing whole meat ingestion. Using softer foods at home. Weight stable despite difficulties.Discussed use of softer foods, ground meats while at hospital as needed. Malnutrition Assessment: Malnutrition Status: At risk for malnutrition (Comment)(with mouth sore) Context: Acute Illness Findings of the 6 clinical characteristics of malnutrition: Energy Intake: No significant decrease in energy intake Weight Loss: No significant weight loss Body Fat Loss: No significant body fat loss Muscle Mass Loss: No significant muscle mass loss Fluid Accumulation: No significant fluid accumulation Director Family Strength: Not Performed Estimated Daily Nutrient Needs: Energy (kcal): 5823-5065(22-27); Weight Used for Energy Requirements: Current Protein (g): 63-68(1.2-1.3); Weight Used for Protein Requirements: [place] Fluid (ml/day): 1700; Weight Used for Fluid Requirements: Current Nutrition Related Findings: missing teeth and mouth sore Wounds: None Current Nutrition Therapies: DIET CARDIAC; Anthropometric Measures: Height: 5' 3 (160 cm) Current Body Weight: 138 lb 1.6 oz (62.6 kg) Admission Body Weight: 137 lb 8 oz (62.4 kg) Usual Body Weight: 135 lb (61.2 kg) Alger Body Weight: 115 lbs; % Alger Body Weight 120.1 % BMI: 24.5 Adjusted Body Weight: ; No Adjustment BMI Categories: Normal Weight (BMI 18.5-24.9) Nutrition Diagnosis: Biting/chewing (masticatory) difficulty related to partial or complete edentulism as evidenced by poor dentition(with mouth sore) Lab Results Component Value Date NA 135 04/04/2020 K 4.0 04/04/2020 CL 107 04/04/2020 CO2 22 04/04/2020 BUN 14 04/04/2020 CREATININE 0.75 04/04/2020 GLUCOSE 93 04/04/2020 CALCIUM 8.9 04/04/2020 PROT 5.8 (L) 04/26/2018 LABALBU 3.2 (L) 04/26/2018 BILITOT 0.53 04/26/2018 ALKPHOS 48 04/26/2018 AST 15 04/26/2018 ALT 6 04/26/2018 LABGLOM >60 04/04/2020 GFRAA >60 04/04/2020 No results found for: LABA1C No results found for: EAG Nutrition Interventions: Food and/or Nutrient Delivery: Continue Current Diet(with softer foods) Nutrition Education/Counseling: Education initiated Coordination of Nutrition Care: Continued Inpatient Monitoring Goals: PO >75% meals with softer foods Nutrition Monitoring and Evaluation: Behavioral-Environmental Outcomes: (none) Food/Nutrient Intake Outcomes: Food and Nutrient Intake Physical Signs/Symptoms Outcomes: Biochemical Data, Chewing or Swallowing, Weight Discharge Planning: Continue current diet Contact: [id number] * May Contreras RN - 04/04/2020 3:15 AM EDT Sent EKG to Dr. Moore's email at this time. * May Contreras RN - 04/03/2020 10:53 PM EDT EKG performed at this time. Will email to Dr. Moore soon. * May Contreras RN - 04/03/2020 9:01 PM EDT Sotalol 2100 dose given at this time. Will complete EKG in [address] email to Dr[address] Moore. * May Contrersa RN - 04/03/2020 7:[address] Moore on his cell at this time. Dr. Moore stated he does not remember receiving an email of patient's EKG early today. Dr. Moore gave the approval to give the 2100 dose for tonight and stated he will access her chart and look at her EKG and will call if any reason to not give the dose. * May Contreras RN - 04/03/2020 7:13 PM EDT Patient is lying comfortably in bed with call light, bedside table and personal belonging within reach. at bedside Denies any needs at this time. Will continue to monitor. * Zeny Burnette RN - 04/03/2020 3:30 PM EDT Patient unsteady during ambulation to restroom and back to chair. Educated on safety precautions and that patient has to call for assistance d/t safety concerns. Patient states that she understands, so alarm left off patient at this time while up in chair. * Татьяна Jc RN - 04/03/2020 8:15 AM EDT Patient arrived to floor via wheelchair. documented in this encounter* Nighat Bazzi [facility] - 05/28/2020 10:30 AM EDT [facility] ANTICOAGULATION Referring Doctor: Yoli GOAL INR: 203 TODAY'S INR: 1.9 WARFARIN Dosage: 7.5 mg MWF; 5 mg all other days Saw patient CURBSIDE. INR (no units) Date Value 05/28/2020 1.9 05/11/2020 1.7 04/17/2020 2.0 04/06/2020 2.0 04/05/2020 2.1 04/04/2020 1.8 04/03/2020 1.6 Hemoglobin (g/dL) Date Value 04/17/2020 12.2 04/06/2020 11.6 (L) 04/05/2020 11.7 (L) Hematocrit (%) Date Value 04/17/2020 38.2 04/06/2020 37.4 04/05/2020 36.9 Platelets (k/uL) Date Value 04/17/2020 315 04/06/2020 345 04/05/2020 324 Notes: Fingerstick INR drawn per clinic protocol. Patient states no visible blood in urine and no black tarry stool. Denies any missed doses of warfarin. Patient states she is still having problems with her BP. Patient was also recently seen by ENT for evaluation of nasal drainage. Azelastine nasalspray was added BID. Patient also tried Fluticasone nasal spray and scopolamine patches - but stopped using them because they didn't help . Patient will take warfarin 10 mg today. Will recheck INR in 3 weeks. Patient acknowledges working in consult agreement with pharmacist as referred by his/her physician. CLINICAL PHARMACY CONSULT: MED RECONCILIATION/REVIEW ADDENDUM For Pharmacy Admin Tracking Only PHSO: No Total # of Interventions Recommended: 1 - Increased Dose #: 1 - Maintenance Safety Lab Monitoring #: 1 Total Interventions Accepted: 2 Time Spent (min): 30 Nighat Bazzi RPh documented in this encounter* Henna Bravo [facility] - 06/25/2020 11:00 AM [facility] Medication Management ANTICOAGULATION Referring Doctor: Dr Moore GOAL INR: 2.0-3.0 TODAY'S INR: 1.4 WARFARIN Dosage: 10mg today then resume previously stable dosing. Notes: Fingerstick INR drawn per clinic protocol. Patient states no visible blood in urine and no black tarry stool. Patient restarted warfarin on 06/19/20 after holding following a fall which resulted in a concussion and hematoma. Patient showed a picture after her fall and only eye sockets and a portion of chin remained bruise free. Patient will be seeing her pediatric clinical nurse specialist in [place] on Thursday. Patient is having knee pain at this time. Patient was referred by Dr Cobian, ENT to Dr Garland Vincent, ENT at [facility] for ongoing sinus concerns (DX laryngopharyngeal reflux disease).Dr Vincent has discontinued all nasal medications at this time. Patient will be having Clarifix sinus procedure on 07/05/20 which requires a 5 day hold of warfarin. With confirmation from Dr Moore,patient will not bridge with lovenox due to bleeding risk despite CHADS score of 5. Dr Moore discontinued midodrine and carvedilol a few weeks ago . Last dose of warfarin will be Friday 06/29. Patient will restart warfarin on evening of procedure (approved by Dr Vincent's office) and return to coumadin clinic 6 days later. Patient and spouse plan to leave for [place] in early July after clearance from Dr Vincent. Calendar of instruction provided to patient with details for warfarin hold memo. Patient acknowledges working in consult agreement with pharmacist as referred by his/her physician. CLINICAL PHARMACY CONSULT: MED RECONCILIATION/REVIEW ADDENDUM For Pharmacy Admin Tracking Only PHSO: No Total # of Interventions Recommended: 2 - Increased Dose #: 2, corrected med list, provided instruction for warfarin holding and restart - Maintenance Safety Lab Monitoring #: 1 Total Interventions Accepted: 3 Time Spent (min): 90 Henna Bravo RPh documented in this encounter* Shy Osuna RPH - 07/13/2019 11:00 AM EST Patient states no visible blood in urine and no black tarry stool. No change in other medications. Will return to clinic in November. Patient is leaving for [place] and won't return until November. Dr Beck Campos monitors her warfarin while she is in [place]. Patient complains that noone checks her BP or weight when she is here. Last note states she refused BP but patient states she has been having problems with BP a nd other pharmacists do not take her BP. Patient will take warfarin 7.5 mg today then continue current dosage of 1.5 tablets for 7.5 mg on M, and whole 5 mg tablet all other days. documented in this encounter* Henna Bravo RPH - 04/26/2019 11:57 AM EDT Fingerstick INR drawn per clinic protocol. Patient states no visible blood in urine and no black tarry stool. Denies any missed doses of warfarin. No change in other maintenance medications or in diet. Will continue current warfarin regimen and recheck INR in 4 week(s) after appt with Dr Moore. Patient has been taking 2.5mg warfarin on Sundays rather than 5mg. Patient has been taking 7.5mg warfarin on Mondays and Fridays as instructed. This is likely impacting her INR. Patient will take 7.5mg warfarin today then take 7.5mg warfarin MF and 5mg all other days as previously instructed. Patient will be starting routine Albuterol nebs QID when they arrive today. Patient has been instructed on using nebulizer by entity who delivered machine. Patient is prescribed diclofenac gel for knees but isconcerned about side effects. She will discuss with md. Patient acknowledges working in consult agreement with pharmacist as referred by his/her physician. documented in this encounter* Nighat Bazzi [facility] - 07/11/2020 11:00 AM EST [facility] Medication Management ANTICOAGULATION Referring Doctor: Yoli GOAL INR: 2-3 TODAY'S INR: 1.6 WARFARIN Dosage: Warfarin 7.5 mg every MWF; 5 mg all other days. Patient will take warfarin 10 mg today and warfarin 7.5 mg tomorrow. INR (no units) Date Value 07/11/2020 1.6 06/25/2020 1.4 05/28/2020 1.9 05/11/2020 1.7 04/17/2020 2.0 04/06/2020 2.0 04/05/2020 2.1 Notes: Fingerstick INR drawn per clinic protocol. Patient states no visible blood in urine and no black tarry stool. Patient recently had ENT surgery (for laryngopharyngeal reflux disease) on 07/05/20. Patient held warfarin 5 days prior to surgery. Patient did not bridge with Lovenox due to recent fall and concussion. Patient complains today of SOB and chest tightness. Patient states that she hashad these symptoms before and they usually resolve when she rests. Patient has h/o PE. I called 's office and spoke to Kristina who stated Dr. Moore is not in office today - recommendation wasfor patient to be seen in ED. 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 I encouraged patient to go to ED after dentist appt. I also spoke to patient's who accompanied her and I recommended ED visit due to patient's symptoms. Patient will take warfarin 10 mg today and warfarin 7.5 mg tomorrow. Patient is leaving for [place] on Thursday and will be there until November. Patient will notify clinic when she returns from [place]. Patient acknowledges working in consult agreement with pharmacist as referred by his/her physician. 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 History of pulmonary embolus (PE) Personal history of pulmonary embolism Diagnosis Essential hypertension Unspecified essential hypertension ASHD (arteriosclerotic heart disease) Coronary atherosclerosis of unspecified type of vessel, [place] or graft Chronic diastolic congestive heart failure (HCC) Chronic diastolic heart failure History of DVT (deep vein thrombosis) Personal history of venous thrombosis and embolism Cardiac pacemaker in situ 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 Coronary artery disease involving [place] coronary artery of [place] heart without angina pectoris History of pulmonary embolus (PE) Personal history of pulmonary embolism 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 History of pulmonary embolus (PE) Personal history of pulmonary embolism Diagnosis 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 ASHD (arteriosclerotic heart disease) Coronary atherosclerosis of unspecified type of vessel, [place] or graft Chronic diastolic congestive heart failure (HCC) Chronic diastolic heart failure History of DVT (deep vein thrombosis) Personal history of venous thrombosis and embolism Cardiac pacemaker in situ Atrial fibrillation (HCC) Atrial fibrillation Encounter for monitoring sotalol therapy Encounter for therapeutic drug monitoring Essential hypertension Unspecified essential hypertension Pulmonary hypertension (HCC) Other chronic pulmonary heart diseases Chronic diastolic CHF (congestive heart failure), NYHA class 3 (HCC) Diagnosis Dyspnea on exertion Other dyspnea and respiratory abnormality Tachycardia Tachycardia, unspecified 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 Coronary artery disease involving [place] coronary artery of [place] heart without angina pectoris History of pulmonary embolus (PE) Personal history of pulmonary embolism 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 History of pulmonary embolus (PE) Personal history of pulmonary embolism 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 Coronary artery disease with stable angina pectoris, unspecified vessel or lesion type, unspecified whether [place] or transplanted heart (HCC) History of pulmonary embolus (PE) Personal history of pulmonary embolism Reason for Referral Status Reason Specialty Diagnoses / Procedures Referre d By Contact Referred To Contact Closed Diagnoses Essential hypertension ASHD (arteriosclerotic heart disease) Chronic diastolic congestive heart failure (HCC) History of DVT (deep vein thrombosis) Cardiac pacemaker in situ Procedures Tilt table test HC TILT STUDY - EPS Toni Moore MD [address] [place] [id number] Specialty Diagnoses / Procedures Referred By Contac t Referred To Contact CT IMAGING Diagnoses Spinal stenosis of lumbar region with neurogenic claudication Procedures CT LUMBAR SPINE WO IVCON CT LUMBAR SPINE W/[place] [address] [place] [address] Ct Imaging Referral ID Status Reason Start Date Expiration Date V isits Requested Visits Authorized [id number] Closed Auto-Generate d Referral 12/30/2021 01/29/2023 1 1 Specialty Diagnoses / Procedures Referred By Contac t Referred To Contact Neurology Diagnoses Numbness and tingling of right leg Procedures CONSULT TO NEUROLOGY OFFICE/OUTPATIENT [facility] 60-74 MINUTES Nguyễn Jean MD [address] [place] [address] Referral ID Status Reason Start Date Expiration Date Visits Requested Visits Authorized [id number] Authorized PCP Requested Referral 2 07/02/2023 1 1 Specialty Diagnoses / Procedures Referred By Contdamion t Referred To Contact Radiology Diagnoses History of DVT (deep vein thrombosis) Pain of left calf Procedures VL DUP LOWER EXTREMITY VENOUS BILATERAL Muriel Deal PA-C [address] [place] [address] Referral ID Status Reason Start Date Expiration Date V isits Requested Visits Authorized [id number] Not Required - RTA 11/24/2022 11/24/2023 1 1 Specialty Diagnoses / Procedures Referred By Contact Referred To Contact Gastroenterology Diagnoses Gastroesophageal reflux disease, unspecified whether esophagitis present Procedures Esophagogastroduodenoscopy (EGD) w Dilation TTS MN ESOPHAGOGASTRODUODENOSCOPY TRANSORAL DIAGNOSTIC MN EGD TRANSORAL BIOPSY SINGLE/[place] [address] [facility] [place] [address] Referral ID Status Reason Start Date Expiration Date V isits Requested Visits Authorized [id number] Authorized 03/29/2024 03/29/2025 1 1 Hospital Course Note MR#: [id number] [facility] Pt. Name: Leyla Sequeira Admitted: 04/12/2020 Discharged: 04/13/2020 Date of : 1940 Physician: All Maki MD DISCHARGE SUMMARY PRIMARY CARE PHYSICIAN: Epi Andrews M.D. FINAL DIAGNOSES: 1. Chest pain, acute myocardial ischemia ruled out, negative stress test. 2. Paroxysmal atrial fibrillation, in sinus rhythm, on sotalol and carvedilol. 3. 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 4. Acquired hypothyroidism, asymptomatic. 5. Essential hypertension, stable. HOSPITAL COURSE: This is an 79-year-old female with past medical history of aforementioned comorbidities, who came to the hospital with some chest pain along with some dyspnea on exertion. The patient was admitted to ruled out for myocardial ischemia, then had a stress test was done, which was negative. Otherwise, the patient has remained stable. PHYSICAL EXAMINATION: GENERAL: When examined today, hemodynamically stable. NECK: Supple. (more content not included)... Note Post Operative Note: PreOp D iagnosis: Rhinorrhea; chronic rhinitis Post- Procedure Diagnosis: Same Procedure: 1. Bilateral posterior nasal cavity cryoablation with the Clarifix device 2. Bilateral nasal endoscopy Surgeon: Carlton Resident/Fellow/Other Internal Combustion Engine Assembler: None Anesthesia: General endotracheal anesthesia Estimated Blood Loss (mL): < 5cc Specimen: no Complications: None Findings: Successful bilateral cryoablation Patient Returned To/Condition: Postanesthesia care unit in satisfactory condition Additional Details: No permanent packing was placed Signature/Cosignature/Attestation: Note Completion: Attending AttestationI performed the procedure without a resident Electronic Signatures: Garland Vincent) (Signed 05-Jul-2020 12:44) Authored: Post Operative Note, Note Completion Last Updated: 05-Jul-2020 12:44 by Garland Vincent) Procedure Findings Note Post Operative Note: PreOp D iagnosis: Rhinorrhea; chronic rhinitis Post- Procedure Diagnosis: Same Procedure: 1. Bilateral posterior nasal cavity cryoablation with the Clarifix device 2. Bilateral nasal endoscopy Surgeon: Carlton Resident/Fellow/Other Internal Combustion Engine Assembler: None Anesthesia: General endotracheal anesthesia Estimated Blood Loss (mL): < 5cc Specimen: no Complications: None Findings: Successful bilateral cryoablation Patient Returned To/Condition: Postanesthesia care unit in satisfactory condition Additional Details: No permanent packing was placed Signature/Cosignature/Attestation: Note Completion: Attending AttestationI performed the procedure without a resident Electronic Signatures: Garland Vincent) (Signed 05-Jul-2020 12:44) Authored: Post Operative Note, Note Completion Last Updated: 05-Jul-2020 12:44 by Garland Vincent () Chief Complaint * 1. Rhinorrhea / rhinitis s/p cryoablation with Clarifix device 07/05/20 * 2. Throat clearing, coughing, dysphonia * 3. Asthma * 4. Bilateral inferior turbinate hypertrophy * 5. Anticoagulated * 1. Rhinorrhea / rhinitis s/p cryoablation with Clarifix device 07/05/20 * 2. Nasal airway obstruction * 3. Throat clearing, coughing, dysphonia * 4. Asthma * 5. Anticoagulated * 6. Heartburn, PPI * 1. Rhinorrhea / rhinitis s/p cryoablation with Clarifix device 07/05/20 * 2. Nasal airway obstruction * 3. Throat clearing, coughing, dysphonia * 4. Asthma * 5. Anticoagulated * 6. Heartburn, PPI * 1. Rhinorrhea / chronic rhinitis s/p cryoablation with Clarifix device 07/05/20 * 2. Nasal airway obstruction * 3. Throat clearing, coughing, dysphonia * 4. Asthma * 5. Anticoagulated * 6. Heartburn on PPI [id number] up appointment for test results Chief Complaint and Reason for Visit Chief Complaint mri clearance Chief Complaint n28.1 Chief Complaint Lt leg lac Chief Complaint Admit Date left leg skin tear after fall November 6:34pm Chief Complaint Admit Date esophageal stricture/REFER April 1:25pm Reason for Visit Admit Date Dysphagia May 10, 2025 1:25pm Esophageal stricture May 10 1:25pm Chief Complaint Admit Date esophageal stricture/REFER April [...] 2025 1:20pm Orthostatic hypotension May 24 1:20pm Medications Administered Section Active Administered Medications - up to 3 most recent administrations Medication Order MAR Action Action Date Dose Rate Site iron sucrose 300 mg in NaCl 0.9% 250 mL (VENOFER) 300 mg, INTRAVENOUS, at 166.67 mL/hr, Administer over 90 Minutes, DIRECTED, 3 doses, Starting on Chana 04/24/22 at 1301, Until Discontinued, Please complete prior to surgery on 05/02/2022. Subsequent doses may be given +/- 3 days apart with a minimum treatment interval of every other day. Administer until iron % sat is greater than or equal to 25. Do not exceed 600 mg in one week on non-consecutive days or 1 gram in 2 weeks. Initiate iron if ferritin is less than 100 or TSAT is less than 20., AMB MED ORDERS New Bag/Syringe/Bottle 04/24/2022 1:30 PM EDT 300 mg 166.67 mL/hr Active Administered Medications - up to 3 most recent administrations Medication Order MAR Action Action Date Dose Rate Site iron sucrose 300 mg in NaCl 0.9% 250 mL (VENOFER) 300 mg, INTRAVENOUS, at 166.67 mL/hr, Administer over 90 Minutes, DIRECTED, 3 doses, Starting on Chana 04/24/22 at 1301, Until Discontinued, Please complete prior to surgery on 05/02/2022. Subsequent doses may be given +/- 3 days apart with a minimum treatment interval of every other day. Administer until iron % sat is greater than or equal to 25. Do not exceed 600 mg in one week on non-consecutive days or 1 gram in 2 weeks. Initiate iron if ferritin is less than 100 or TSAT is less than 20., AMB MED ORDERS New Bag/Syringe/Bottle 04/28/2022 1:52 PM EDT 300 mg 166.67 mL/hr New Bag/Syringe/Bottle 04/24/2022 1:30 PM EDT 300 mg 1 66.67 mL/hr Inactive Administered Medications - up to 3 most recent administrations Medication Order MAR Action Action Date Dose Rate Site lidocaine (PF) 10 mg/mL (1 %) 4 mL injection (XYLOCAINE) 4 mL, Injection - FOR ORTHO USE ONLY, ONE TIME INJECTION, 1 dose, Starting on Thu03/31/22 at 1617, Until Thu03/31/22 at 1617 Given 03/31/2022 4:17 PM EDT 4 mL Kn ee, Right Inactive Administered Medications - up to 3 most recent administrations Medication Order MAR Action Action Date Dose Rate Site iron sucrose 300 mg in NaCl 0.9% 250 mL (VENOFER) 300 mg, INTRAVENOUS, at 166.67 mL/hr, Administer over 90 Minutes, DIRECTED, 3 doses, Starting on Chana 04/24/22 at 1301, Until 04/30/22 at 1452, Please complete prior to surgery on 05/02/2022. Subsequent doses may be given +/- 3 days apart with a minimum treatment interval of every other day. Administer until iron % sat is greater than or equal to 25. Do not exceed 600 mg in one week on non-consecutive days or 1 gram in 2 weeks. Initiate iron if ferritin is less than 100 or TSAT is less than 20., AMB MED ORDERS New Bag/Syringe/Bottle 04/30/2022 1:22 PM EDT 300 mg 166.67 mL/hr New Bag/Syringe/Bottle 04/28/2022 1:52 PM EDT 300 mg 1 66.67 mL/hr New Bag/Syringe/Bottle 04/24/2022 1:30 PM EDT 300 mg 1 66.67 mL/hr Additional Source Comments INFORMATION SOURCE (unrecogn ized section and content) DATE CREATED AUTHOR 02/10/2018 Lexie mckeon DATE CREATED AUTHOR AUTHOR'S ORGANIZ ATION 04/17/2020 [facility] DATE CREATED AUTHOR AUTHOR'S ORGANIZ ATION 07/11/2020 [facility] DATE CREATED AUTHOR AUTHOR'S ORGANIZ ATION 07/18/2021 [facility] DATE CREATED AUTHOR AUTHOR'S ORGANIZ ATION 08/13/2021 [facility] DATE CREATED AUTHOR AUTHOR'S ORGANIZ ATION 01/21/2022 [facility] DATE CREATED AUTHOR AUTHOR'S ORGANIZ ATION 07/06/2022 [facility] DATE CREATED AUTHOR AUTHOR'S ORGANIZ ATION 07/16/2022 [facility] DATE CREATED AUTHOR AUTHOR'S ORGANIZ ATION 05/23/2023 [facility] DATE CREATED AUTHOR AUTHOR'S ORGANIZ ATION 06/22/2023 [facility] DATE CREATED AUTHOR AUTHOR'S ORGANIZ ATION 07/20/2023 [facility] DATE CREATED AUTHOR AUTHOR'S ORGANIZ ATION 12/01/2023 [facility] DATE CREATED AUTHOR AUTHOR'S ORGANIZ ATION 01/16/2024 [facility] Amb[facility] DATE CREATED AUTHOR AUTHOR'S ORGANIZ ATION 04/10/2024 [facility] DATE CREATED AUTHOR AUTHOR'S ORGANIZ ATION 05/06/2024 [facility] DATE CREATED AUTHOR AUTHOR'S ORGANIZ ATION 09/18/2024 [facility] DATE CREATED AUTHOR AUTHOR'S ORGANIZ ATION 01/15/2025 [facility] DATE CREATED AUTHOR AUTHOR'S ORGANIZ ATION 01/29/2025 [facility] DATE CREATED AUTHOR AUTHOR'S ORGANIZ ATION 03/10/2025 [facility] DATE CREATED AUTHOR AUTHOR'S ORGANIZ ATION 04/02/2025 [facility] DATE CREATED AUTHOR AUTHOR'S ORGANIZ ATION 05/04/2025 [facility] DATE CREATED AUTHOR AUTHOR'S ORGANIZ ATION 05/06/2025 [facility] DATE CREATED AUTHOR AUTHOR'S ORGANIZ ATION 05/26/2025 [facility] Reason for Visit (unrecogniz ed section and content) Status Reason Specialty Diagnoses / Procedures Referre d By Contact Referred To Contact Closed Diagnoses Essential hypertension ASHD (arteriosclerotic heart disease) Chronic diastolic congestive heart failure (HCC) History of DVT (deep vein thrombosis) Cardiac pacemaker in situ Procedures Tilt table test HC TILT STUDY - EPS Toni Moore MD [address] [place] [address] Reason Comments Tachycardia pt states she feels like her heart is racing, onset last night Shortness of Breath Reason Comments Follow Up low back pain Reason Comments Results Specialty Diagnoses / Procedures Referred By Contac t Referred To Contact CT IMAGING Diagnoses Spinal stenosis of lumbar region with neurogenic claudication Procedures CT LUMBAR SPINE WO IVCON CT LUMBAR SPINE W/[place] [address] [place] [address] Ct Imaging Referral ID Status Reason Start Date Expiration Date V isits Requested Visits Authorized [id number] Closed Auto-Generate d Referral 12/30/2021 01/29/2023 1 1 Reason Comments New Patient Spinal stenosis of l umbar region, unspecified whether neurogenic claudication present Specialty Diagnoses / Procedures Referred By Contac t Referred To Contact Diagnoses Spinal stenosis of lumbar region, unspecified whether neurogenic claudication present Lumbar radiculopathy, chronic Spinal stenosis of lumbar region with neurogenic claudication Procedures CONSULT TO SPINE SURGERY OFFICE/OUTPATIENT NEW HIGH MDM 60-74 [place] [address] [place] [address] Referral ID Status Reason Start Date Expiration Date Visits Re quested Visits Authorized [id number] Closed 12/30/2021 03/30/2022 1 1 Reason Comments Social Work Services Reason Comments Non-Chemotherapy Treatment Reason Comments Patient Question Patient is wondering if she needs to have a covid test before her procedure on the , however there is no covid order put through so the call center called to double check but patient hung up on both of us, needs a call back to inform her if she needs a covid test or not Reason Comments Established Patient Follow Up Knee Pain Knee Replacement Reason Comments Benefits Investigation Reason Comments CoPat Start Reason Comments CoPat Agency Reason Comments Outside Labs Results Copat Reason Comments Post Op DOS: 05/02/22 Reason Onset Date Comments Refill Request 05/22/2022 Reason Comments Hold CoPat Lab Orders Reason Comments Appointment manoj removal Reason Comments Post Op DOS 05/02/22 ARTHROT MINGO 8 WEEKS Reason Comments Patient Update Specialty Diagnoses / Procedures Referred By Tru castillo Referred To Contact Radiology Diagnoses History of DVT (deep vein thrombosis) Pain of left calf Procedures VL DUP LOWER EXTREMITY VENOUS BILATERAL Muriel Deal, OLIVER [address] [place] [address] Referral ID Status Reason Start Date Expiration Date V isits Requested Visits Authorized [id number] Not Required - RTA 11/24/2022 11/24/2023 1 1 Reason Comments Wound Check Pt reports hit her l eg on her Rolator yesterday and has been bleeding to left lower leg. When she takes band aids off bleeding resumes. On coumadin. Reason Comments Radio Gen RMP Reason Comments Radio Gen RMP Specialty Diagnoses / Procedures Referred By Tru t Referred To Contact XR IMAGING Diagnoses S/P revision of total knee, left Procedures XR KNEE POST OP 3V AP/LAT/MERCHANT RIGHT RADIOLOGIC EXAMINATION KNEE 3 VIEWS Cooper Stephens, PA-C [address] [place] [address] [place] [address] Referral ID Status Reason Start Date Expiration Date V isits Requested Visits Authorized [id number] Closed Auto-Generate d Referral 03/13/2022 04/12/2023 1 1 Reason Comments Radio Gen P Radiology Service Pr ogress NotePATIENT NAME: Leyla LambertMRN: [id number] OF SERVICE: July 02, 2022TIME: 12:11 PMPATIENT IDENTITY VERIFICATION COMPLETED USING TWO (2) IDENTIFIERS: Name and Date of confirmed by patient verbally.FALL SCREENING: Has the patient had 2 falls in the last year or 1 fall with injury or currently using an Ambulatory Assistive Device (Walker, Cane, Wheelchair, Crutches, etc.)? NoPATIENT GENDER DATA: Female. status: : No B Specialty Diagnoses / Procedures Referred By Contac t Referred To Contact XR IMAGING Diagnoses Infection associated with internal right knee prosthesis, subsequent encounter Procedures XR KNEE POST OP 3V AP/LAT/MERCHANT RIGHT RADIOLOGIC EXAMINATION KNEE 3 VIEWS [place], Cooper D, PA-C [address] [place] [address] X[facility] [place] [facility] Referral ID Status Reason Start Date Expiration Date V isits Requested Visits Authorized [id number] Closed Auto-Generate d Referral 04/04/2022 05/04/2023 1 1 Specialty Diagnoses / Procedures Referred By Contac t Referred To Contact XR IMAGING Diagnoses 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 PT states that she has been feeling very weak and tired, Pts PCP wanted her to come get checked out. PT denies any chest pain or shortness of breath. PT has a hx of HTN and has been taking medications for this. 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 Specialty Diagnoses / Procedures Referred By Contdamion t Referred To Contact Diagnoses Dysphagia, unspecified type Procedures N/[place] [address] [place] [address] [address] [place] [address] Referral ID Status Reason Start Date Expiration Date Visits Re quested Visits Authorized [id number] 1 1 Reason Comments Follow-up Hospital f/u Reason Onset Date Comments Med Refill 10/10/2024 Reason Onset Date Comments Med Refill 10/26/2024 Reason Comments Med Refill Reason Comments Follow-up Wound check stitches yesterday from Urgent care Reason Comments Medicare Annual Wellness Visit Subsequen t wellness Reason Comments Follow-up Er f/u Shortness of Breath Reason Comments Follow-up Hospital f/u Reason Comments Follow-up Shortness of Breath Reason Comments Follow-up Difficulty swallowin g Reason Comments Follow-up F/up Reason Comments Pain Reason Comments Shortness of Breath Pt reports SOB start ing last night. Pt reports hx lung dz. Pt also reports I hit my left leg on my walker and it bleed all night . Pt arived to ED from coumadin clinic with reported 1.2 INR from [facility] staff Wound Check Reason Comments Fall Shortness of Breath Fatigue Specialty Diagnoses / Procedures Referred By Tru t Referred To Contact Diagnoses Recurrent falls Larisa Reardon MD [address] [place] [address], [place] [address] Phone: tel: fax: [facility] [address] [place] [address] Referral ID Status Reason Start Date Expiration Date Visits Re quested Visits Authorized [id number] Reason Comments Follow-up Hospital f/up Shortness of Breath Reason Comments COPD 2 month follow up Care Teams (unrecognized sec tion and content) Team Status: Active Member Role Status Dates Douglas Will MD Primary Care Provider Active Team Status: Inactive Member Role Status Dates Douglas Will MD Primary Care Provider Active Sky Reeves PA-C Emergency Provider Active 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 [address] [place] [address] PCP - General 04/10/16 Freight Service Inspector Relationship Specialty Start Date End Date Epi Andrews [address] [place] [address] PCP - General 04/10/16 Freight Service Inspector Relationship Specialty Start Date End Date Epi Andrews [address] [place] [address] PCP - General 04/10/16 Freight Service Inspector Relationship Specialty Start Date End Date Douglas Will [address] [place] [address] PCP - General Family Practice 05/29/21 Mary Rucker MD [address] [place] [address] Primary Staff Physician Cardiology 11/02/18 Freight Service Inspector Relationship Specialty Start Date End Date Douglas Will [address] [place] [address] PCP - General Family Practice 05/29/21 Mary Rucker MD [address] [place] [address] Primary Staff Physician Cardiology 11/02/18 Freight Service Inspector Relationship Specialty Start Date End Date Douglas Will [address] [place] [address] PCP - General Family Practice 05/29/21 Mary Rucker MD [address] [place] [address] Primary Staff Physician Cardiology 11/02/18 Freight Service Inspector Relationship Specialty Start Date End Date Douglas Will [address] [place] [address] PCP - General Family Practice 05/29/21 Mary Rucker MD [address] [place] [address] Primary Staff Physician Cardiology 11/02/18 Freight Service Inspector Relationship Specialty Start Date End Date Douglas Will [address] [place] [address] PCP - General Family Practice 05/29/21 Mary Rucker MD [address] [place] [address] Primary Staff Physician Cardiology 11/02/18 Freight Service Inspector Relationship Specialty Start Date End Date Douglas Will [address] [place] [address] PCP - General Family Practice 05/29/21 Mary Rucker MD [address] [place] [address] Primary Staff Physician Cardiology 11/02/18 Team Status: Inactive Member Role Status Dates Douglas Will MD Primary Care Provider Active Isauro Archuleta MD Attending Provider Active Freight Service Inspector Relationship Specialty Start Date End Date Epi Andrews [address] [place] [address] PCP - General 04/10/16 Freight Service Inspector Relationship Specialty Start Date End Date Epi Andrews [address] [place] [address] PCP - General 04/10/16 Freight Service Inspector Relationship Specialty Start Date End Date Douglas Will [address] [place] [address] PCP - General Family Practice 05/29/21 Mary Rucker MD [address] [place] [address] Primary Staff Physician Cardiology 11/02/18 Freight Service Inspector Relationship Specialty Start Date End Date Douglas Will [address] [place] [address] PCP - General Family Practice 05/29/21 Mary Rucker MD [address] [place] [address] Primary Staff Physician Cardiology 11/02/18 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 [address] [place], [place] [id number] PCP - General 04/10/16 Freight Service Inspector Relationship Specialty Start Date End Date Douglas Will MD [address] [place] [address] PCP - General Family Medicine 02/24/22 Freight Service Inspector Relationship Specialty Start Date End Date Douglas Will MD [address] [place] [address] PCP - General Family Medicine 02/24/22 Freight Service Inspector Relationship Specialty Start Date End Date Douglas Will [address] [place] [address] PCP - General Family Practice 05/29/21 Mary Rucker MD [address] [place], [place] [address] Primary Staff Physician Cardiology 11/02/18 Emma Blackman MD [address] [place] [address] Pulmonary Disease 04/16/22 Toni Moore [address] [place] [address] Cardiology 04/16/22 Freight Service Inspector Relationship Specialty Start Date End Date Douglas Will [address] [place] [address] PCP - General Family Practice 05/29/21 Mary Rucker MD [address] [place] [address] Primary Staff Physician Cardiology 11/02/18 Emma Blackman MD [address] [place] [address] Pulmonary Disease 04/16/22 Toni Moore [address] [place] [address] Cardiology 04/16/22 Freight Service Inspector Relationship Specialty Start Date End Date Douglas Will [address] [place] [address] PCP - General Family Practice 05/29/21 Mary Rucker MD [address] [place] [address] Primary Staff Physician Cardiology 11/02/18 Emma Blackman MD [address] [place] [address] Pulmonary Disease 04/16/22 Toni Moore [address] [place] [address] Cardiology 04/16/22 Freight Service Inspector Relationship Specialty Start Date End Date Douglas Will [address] [place] [address] PCP - General Family Practice 05/29/21 Mary Rucker MD [address] [place] [address] Primary Staff Physician Cardiology 11/02/18 Freight Service Inspector Relationship Specialty Start Date End Date Douglas Will [address] [place] [address] PCP - General Family Practice 05/29/21 Mary Rucker MD [address] [place] [address] Primary Staff Physician Cardiology 11/02/18 Emma Blackman MD [address] [place] [address] Pulmonary Disease [facility]/16[facility]22 [facility] [address] [place] [address] Cardiology 04/16/22 Freight Service Inspector Relationship Specialty Start Date End Date Douglas Will [address] [place] [address] PCP - General Family Practice 05/29/21 Mary Rucker MD [address] [place] [address] Primary Staff Physician Cardiology 11/02/18 Emma Blackman MD [address] [place] [address] Pulmonary Disease 04/16/22 Toni Moore [address] [place] [address] Cardiology 04/16/22 Freight Service Inspector Relationship Specialty Start Date End Date Douglas Will [address] [place] [address] PCP - General Family Practice 05/29/21 Mary Rucker MD [address] [place] [address] Primary Staff Physician Cardiology 11/02/18 Emma Blackman MD [address] [place] [address] Pulmonary Disease 04/16/[address] [address] Cardiology 04/16/22 Freight Service Inspector Relationship Specialty Start Date End Date Douglas Will [address] [place] [address] PCP - General Family Medicine 05/29/21 Mary Rucker MD [address] [place] [address] Primary Staff Physician Cardiology 11/02/18 Emma Blackman MD [address] [place] [address] Pulmonary Disease 04/16/[address] [address] Cardiology 04/16/22 Freight Service Inspector Relationship Specialty Start Date End Date Douglas Will MD [address] [place] [address] PCP - General Family Medicine 02/24/22 Freight Service Inspector Relationship Specialty Start Date End Date Douglas Will MD [address] [place] [address] PCP - General Family Medicine 02/24/22 Freight Service Inspector Relationship Specialty Start Date End Date Douglas Will [address] [place] [address] PCP - General Family Medicine 05/29/21 Mary Rucker MD [address] [place] [address] Primary Staff Physician Cardiology 11/02/18 Emma Blackman MD [address] [place] [address] Pulmonary Disease 04/16/22 [facility] Toni [address] [address] Cardiology 04/16/22 Freight Service Inspector Relationship Specialty Start Date End Date Douglas Will [address] [place] [address] PCP - General Family Medicine 05/29/21 Mary Rucker MD [address] [place] [address] Primary Staff Physician Cardiology 11/02/18 Emma Blackman MD [address] [place] [address] Pulmonary Disease 04/16/22 Toni Moore [address] [place] [address] Cardiology 04/16/22 Freight Service Inspector Relationship Specialty Start Date End Date Douglas Will [address] [place] [address] PCP - General Family Medicine 05/29/21 Mary Rucker MD [address] [place] [address] Primary Staff Physician Cardiology 11/02/18 Emma Blackman MD [address] [place] [address] Pulmonary Disease 04/16/22 Toni Moore [address] [place] [address] [phone] Cardiology 04/16/22 Freight Service Inspector Relationship Specialty Start Date End Date Douglas Will MD [address] [place] [address] PCP - General Family Medicine 02/24/22 Freight Service Inspector Relationship Specialty Start Date End Date Douglas Will MD [address] [place] [address] PCP - General Family Medicine 02/24/22 Freight Service Inspector Relationship Specialty Start Date End Date Douglas Will [address] [place] [address] PCP - General Family Medicine 05/29/21 Mary Rucker MD [address] [place] [address] Primary Staff Physician Cardiology 11/02/18 Emma Blackman MD [address] [place] [address] Pulmonary Disease 04/16/22 Toni Moore [address] [place] [address] Cardiology 04/16/22 Freight Service Inspector Relationship Specialty Start Date End Date Douglas Will [address] [place] [address] PCP - General Family Medicine 05/29/21 Mary Rucker MD [address] [place] [address] Primary Staff Physician Cardiology 11/02/18 Emma Blackman MD [address] [place] [address] Pulmonary Disease 04/16/22 Toni Moore [address] [place] [address] [phone] Cardiology 04/16/22 Freight Service Inspector Relationship Specialty Start Date End Date Douglas Will MD [address] [place] [address] PCP - General Family Medicine 02/24/22 Freight Service Inspector Relationship Specialty Start Date End Date Douglas Will [address] [place] [address] PCP - General Family Medicine 05/29/21 Mary Rucker MD [address] [place] [address] Primary Staff Physician Cardiology 11/02/18 Emma Blackman MD [address] [place] [address] Pulmonary Disease 04/16/22 Toni Moore [address] [place] [address] [phone] Cardiology 04/16/22 Freight Service Inspector Relationship Specialty Start Date End Date Douglas Will MD [address] [place] [address] PCP - General Family Medicine 02/24/22 Freight Service Inspector Relationship Specialty Start Date End Date Douglas Will MD [address] [place] [address] PCP - General Family Medicine 02/24/22 Freight Service Inspector Relationship Specialty Start Date End Date Epi Andrews PCP - General Cardiology 01/05/09 05/28/21 Mary Rucker MD [address] [place] [address] Primary Staff Physician Cardiology 11/02/18 Freight Service Inspector Relationship Specialty Start Date End Date Epi Andrews PCP - General Cardiology 01/05/09 05/28/21 Mary Rucker MD [address] [place] [address] Primary Staff Physician Cardiology 11/02/18 Freight Service Inspector Relationship Specialty Start Date End Date Douglas Will MD [address] [place], [place] [address] PCP - General Family Medicine 02/24/22 Freight Service Inspector Relationship Specialty Start Date End Date Douglas Will [address] [place] [address] PCP - General Family Medicine 05/29/21 Mary Rucker MD [address] [place] [address] Primary Staff Physician Cardiology 11/02/18 Emma Zabala MD [address] [place] [address] Pulmonary Disease 04/16/22 Toni Moore MD [address] [place] [address] Cardiology 04/16/22 Freight Service Inspector Relationship Specialty Start Date End Date Douglas Will [address] [place] [address] PCP - General Family Medicine 05/29/21 Mary Rucker MD [address] [place] [address] Primary Staff Physician Cardiology 11/02/18 Emma Zabala MD [address] [place] [address] Pulmonary Disease 04/16/22 Toni Moore MD [address] [place] [address] Cardiology 04/16/22 Freight Service Inspector Relationship Specialty Start Date End Date Douglas Will [address] [place] [address] PCP - General Family Medicine 05/29/21 Mary Rucker MD [address] [place] [address] Primary Staff Physician Cardiology 11/02/18 Emma Zabala MD [address] [place] [address] Pulmonary Disease 04/16/22 Toni Moore MD [address] [place] [address] Cardiology 04/16/22 Freight Service Inspector Relationship Specialty Start Date End Date Douglas Will [address] [place] [address] PCP - General Family Medicine 05/29/21 Mary Rucker MD [address] [place] [address] Primary Staff Physician Cardiology 11/02/18 Freight Service Inspector Relationship Specialty Start Date End Date Douglas Will [address] [place], [place] [id number] PCP - General Family Medicine 05/29/21 Mary Rucker MD [address] [place] [address] Primary Staff Physician Cardiology 11/02/18 Freight Service Inspector Relationship Specialty Start Date End Date Douglas Will MD [address] [place] [phone] PCP - General Family Medicine 12/16/23 Freight Service Inspector Relationship Specialty Start Date End Date Douglas Will MD [address] [place] [address] PCP - General Family Medicine 12/16/23 Freight Service Inspector Relationship Specialty Start Date End Date Epi Andrews MD [address] [address] PCP - General 06/18/20 Freight Service Inspector Relationship Specialty Start Date End Date Douglas Will MD [address] [place] [address] PCP - General Family Medicine 12/16/23 Freight Service Inspector Relationship Specialty Start Date End Date Douglas Will MD [address] [place] [address] PCP - General Family Medicine 12/16/23 Freight Service Inspector Relationship Specialty Start Date End Date Douglas Will MD [address] [place] [address] PCP - General Family Medicine 12/16/23 Freight Service Inspector Relationship Specialty Start Date End Date Douglas Will MD [address] [place] [address] PCP - General Family Medicine 02/24/22 Freight Service Inspector Relationship Specialty Start Date End Date Douglas Will MD [address] [place] [address] PCP - General Family Medicine 12/16/23 Freight Service Inspector Relationship Specialty Start Date End Date Epi Andrews MD [address] [place] [address] PCP - General 06/18/20 Freight Service Inspector Relationship Specialty Start Date End Date Epi Andrews MD [address] [place] [address] PCP - General 06/18/20 Freight Service Inspector Relationship Specialty Start Date End Date Epi Andrews MD [address] [place] [address] PCP - General 06/18/20 Freight Service Inspector Relationship Specialty Start Date End Date Douglas Will MD [address] [place] [address] PCP - General Family Medicine 12/16/23 Freight Service Inspector Relationship Specialty Start Date End Date Douglas Will MD [address] [place] [phone] PCP - [facility] 12/16/23 Freight Service Inspector Relationship Specialty Start Date End Date Douglas Will MD PCP - [facility] Medicine 05/20/21 Freight Service Inspector Relationship Specialty Start Date End Date Douglas Will MD PCP - [facility] 05/20/21 Freight Service Inspector Relationship Specialty Start Date End Date Douglas Will MD PCP - [facility] Medicine 05/20/21 Freight Service Inspector Relationship Specialty Start Date End Date Douglas Will MD [address] [place] [address] PCP - [facility] 12/16/23 Freight Service Inspector Relationship Specialty Start Date End Date Douglas Will MD PCP - General Family Medicine 05/20/21 Freight Service Inspector Relationship Specialty Start Date End Date Douglas Will MD PCP - [facility] Family Medicine 05/20/21 Team Status: Inactive Member Role Status Dates Douglas Will MD Primary Care Provider Active S tart: November 29, 2024 End: November 29, 2024 Penelope Leonardo APRN Attending Provider Active Start: November 29, 2024 End: November 29, 2024 Freight Service Inspector Relationship Specialty Start Date End Date Douglas Will MD [address] [place] [address] PCP - General Family Medicine 12/16/23 Freight Service Inspector Relationship Specialty Start Date End Date Douglas Will MD [address] [place] [address] PCP - General Family Medicine 12/16/23 Freight Service Inspector Relationship Specialty Start Date End Date Douglas Will MD [address] [place] [address] PCP - General Family Medicine 12/16/23 Freight Service Inspector Relationship Specialty Start Date End Date Douglas Will MD [address] [place] [address] PCP - General Family Medicine 12/16/23 Freight Service Inspector Relationship Specialty Start Date End Date Douglas Will MD [address] [place] [address] PCP - General Family Medicine 12/16/23 Freight Service Inspector Relationship Specialty Start Date End Date Douglas Will MD [address] [place] [address] PCP - General Family Medicine 12/16/23 Freight Service Inspector Relationship Specialty Start Date End Date Douglas Will MD [address] [place] [address] PCP - General Family Medicine 12/16/23 Freight Service Inspector Relationship Specialty Start Date End Date Douglas Will MD PCP - General Family Medicine 05/20/21 Freight Service Inspector Relationship Specialty Start Date End Date Douglas Will MD PCP - General Family Medicine 05/20/21 Freight Service Inspector Relationship Specialty Start Date End Date Douglas Will MD PCP - General Family Medicine 05/20/21 Freight Service Inspector Relationship Specialty Start Date End Date Douglas Will MD PCP - General Family Medicine 05/20/21 Freight Service Inspector Relationship Specialty Start Date End Date Douglas Will MD [address] [place] [address] PCP - General Family Medicine 12/16/23 Freight Service Inspector Relationship Specialty Start Date End Date Douglas Will MD [address] [place] [address] PCP - General Family Medicine 12/16/23 Freight Service Inspector Relationship Specialty Start Date End Date Douglas Will MD [address] [place] [phone] PCP - General Family Medicine 12/16/23 Freight Service Inspector Relationship Specialty Start Date End Date Douglas Will MD [address] [place] [address] PCP - General Family Medicine 12/16/23 Freight Service Inspector Relationship Specialty Start Date End Date Douglas Will MD [address] [place] [address] PCP - General Family Medicine 12/16/23 Freight Service Inspector Relationship Specialty Start Date End Date Douglas Will MD [address] [place] [phone] PCP - General Family Medicine 12/16/23 Freight Service Inspector Relationship Specialty Start Date End Date Douglas Will MD PCP - General Family Medicine 05/20/21 Freight Service Inspector Relationship Specialty Start Date End Date Douglas Will MD PCP - General Family Medicine 05/20/21 Freight Service Inspector Relationship Specialty Start Date End Date Douglas Will MD [address] [place] [phone] PCP - General Family Medicine 12/16/23 Ke Marte MA Family Medicine 01/20/25 Freight Service Inspector Relationship Specialty Start Date End Date Douglas Will MD [address] [place] [phone] PCP - General Family Medicine 12/16/23 Ke Marte MA Family Medicine 01/20/25 Freight Service Inspector Relationship Specialty Start Date End Date Douglas Will MD [address] [place] [address] PCP - General Family Medicine 12/16/23 Ke Marte MA Family Medicine 01/20/25 Freight Service Inspector Relationship Specialty Start Date End Date pEi Andrews MD [address] [address] [place] [phone] PCP - General 06/18/20 Freight Service Inspector Relationship Specialty Start Date End Date Douglas Will MD [address] [place] [address] PCP - General Family Medicine 12/16/23 Ke Marte MA [address] [place] [address] Family Medicine 01/20/25 Freight Service Inspector Relationship Specialty Start Date End Date Douglas Will MD [address] [place] [address] PCP - General Family Medicine 02/24/22 Freight Service Inspector Relationship Specialty Start Date End Date Douglas Will MD [address] [place] [address] PCP - General Family Medicine 02/24/22 Freight Service Inspector Relationship Specialty Start Date End Date Douglas Will MD [address] [place] [address] PCP - General Family Medicine 12/16/23 Ke Marte MA [address] [place] [address] Family Medicine 01/20/25 Freight Service Inspector Relationship Specialty Start Date End Date Douglas Will MD [address] [place] [address] PCP - General Family Medicine 12/16/23 Ke Marte MA [address] [place] [address] Family Medicine 01/20/25 Freight Service Inspector Relationship Specialty Start Date End Date Douglas Will MD [address] [place] [address] PCP - General Family Medicine 12/16/23 Ke Marte NM [address] [place] [address] Family Medicine 01/20/25 Freight Service Inspector Relationship Specialty Start Date End Date Douglas Will MD [address] [place] [address] PCP - General Family Medicine 12/16/23 Ke Marte NM [address] [place] [address] Family Medicine 01/20/25 Freight Service Inspector Relationship Specialty Start Date End Date Douglas Will MD [address] [place] [address] PCP - General Family Medicine 02/24/22 Freight Service Inspector Relationship Specialty Start Date End Date Douglas Will MD [address] [place] [address] PCP - General Family Medicine 12/16/23 Ke Marte MA [address] [place] [address] Family Medicine 01/20/25 Freight Service Inspector Relationship Specialty Start Date End Date Douglas Will MD [address] [place] [address] PCP - General Family Medicine 02/24/22 Freight Service Inspector Relationship Specialty Start Date End Date Douglas Will MD [address] [place] [address] PCP - General Family Medicine 12/16/23 Ke Marte NM [address] [place] [address] Family Medicine 01/20/25 Freight Service Inspector Relationship Specialty Start Date End Date Douglas Will MD [address] [place] [address] PCP - General Family Medicine 12/16/23 Ke Marte NM [address] [place] [address] Family Medicine 01/20/25 Freight Service Inspector Relationship Specialty Start Date End Date Douglas Will MD [address] [place] [address] PCP - General Family Medicine 02/24/22 Freight Service Inspector Relationship Specialty Start Date End Date Douglas Will MD [address] [place] [address] PCP - General Family Medicine 02/24/22 Freight Service Inspector Relationship Specialty Start Date End Date Douglas Will MD PCP - General Family Medicine 12/16/23 Freight Service Inspector Relationship Specialty Start Date End Date Douglas Will MD PCP - General Family Medicine 12/16/23 Freight Service Inspector Relationship Specialty Start Date End Date Douglas Will MD [address] [place] [address] PCP - General Family Medicine 02/24/22 Team Status: Inactive Member Role Status Dates Douglas Will MD Primary Care Provider Active S tart: May 10, 2025 End: May 10, 2025 Atilio Wade MD Attending Provider Active S tart: May 10, 2025 End: May 10, 2025 Team Status: Inactive Member Role Status Dates Douglas Will MD Primary Care Provider Active S tart: May 24, 2025 End: May 24, 2025 Douglas Will MD Attending Provider Active Star t: May 24, 2025 End: May 24, 2025 Goals (unrecognized section and content) Goals may be documented in a n alternate section No data available for this sectionGoals may be documented in an alternate section No data available for this section No data available for this section No data available for this section No data available for this sectionGoals may be documented in an alternate sectionNo Information No data available for this sectionGoals may be documented in an alternate sectionNot on filedocumented as of this encounterNot on filedocumented as of this encounterNot on filedocumented as of this encounterNot on filedocumented as of this encounterGoals may be documented in an alternate sectionGoals may be documented in an alternate section Source Comments (unrecognize d section and content) In the event this informatio n is protected by the Federal Confidentiality of Alcohol and Drug Abuse Patient Records regulations: The Federal rules restrict any use of the information to criminally investigate or prosecute any alcohol or drug abuse patient.[facility] the event this information is protected by the Federal Confidentiality of Alcohol and Drug Abuse Patient Records regulations: The Federal rules restrict any use of the information to criminally investigate or prosecute any alcohol or drug abuse patient.[facility]In the event this information is protected by the Federal Confidentiality of Alcohol and Drug Abuse Patient Records regulations: The Federal rules restrict any use of the information to criminally investigate or prosecute any alcohol or drug abuse patient.[facility]In the event this information is protected by the Federal Confidentiality of Alcohol and Drug Abuse Patient Records regulations: The Federal rules restrict any use of the information to criminally investigate or prosecute any alcohol or drug abuse patient.[facility] HospitalIn the event this information is protected by the Federal Confidentiality of Alcohol and Drug Abuse Patient Records regulations: The Federal rules restrict any use of the information to criminally investigate or prosecute any alcohol or drug abuse patient.[facility] HospitalIn the event this information is protected by the Federal Confidentiality of Alcohol and Drug Abuse Patient Records regulations: The Federal rules restrict any use of the information to criminally investigate or prosecute any alcohol or drug abuse patient.[facility] HospitalIn the event this information is protected by the Federal Confidentiality of Alcohol and Drug Abuse Patient Records regulations: The Federal rules restrict any use of the information to criminally investigate or prosecute any alcohol or drug abuse patient.[facility] HospitalIn the event this information is protected by the Federal Confidentiality of Alcohol and Drug Abuse Patient Records regulations: The Federal rules restrict any use of the information to criminally investigate or prosecute any alcohol or drug abuse patient.[facility] HospitalIn the event this information is protected by the Federal Confidentiality of Alcohol and Drug Abuse Patient Records regulations: The Federal rules restrict any use of the information to criminally investigate or prosecute any alcohol or drug abuse patient.[facility] HospitalIn the event this information is protected by the Federal Confidentiality of Alcohol and Drug Abuse Patient Records regulations: The Federal rules restrict any use of the information to criminally investigate or prosecute any alcohol or drug abuse patient.[facility] HospitalIn the event this information is protected by the Federal Confidentiality of Alcohol and Drug Abuse Patient Records regulations: The Federal rules restrict any use of the information to criminally investigate or prosecute any alcohol or drug abuse patient.[facility] HospitalIn the event this information is protected by the Federal Confidentiality of Alcohol and Drug Abuse Patient Records regulations: The Federal rules restrict any use of the information to criminally investigate or prosecute any alcohol or drug abuse patient.[facility] HospitalIn the event this information is protected by the Federal Confidentiality of Alcohol and Drug Abuse Patient Records regulations: The Federal rules restrict any use of the information to criminally investigate or prosecute any alcohol or drug abuse patient.[facility] HospitalIn the event this information is protected by the Federal Confidentiality of Alcohol and Drug Abuse Patient Records regulations: The Federal rules restrict any use of the information to criminally investigate or prosecute any alcohol or drug abuse patient.[facility] HospitalIn the event this information is protected by the Federal Confidentiality of Alcohol and Drug Abuse Patient Records regulations: The Federal rules restrict any use of the information to criminally investigate or prosecute any alcohol or drug abuse patient.[facility] HospitalIn the event this information is protected by the Federal Confidentiality of Alcohol and Drug Abuse Patient Records regulations: The Federal rules restrict any use of the information to criminally investigate or prosecute any alcohol or drug abuse patient.[facility] HospitalIn the event this information is protected by the Federal Confidentiality of Alcohol and Drug Abuse Patient Records regulations: The Federal rules restrict any use of the information to criminally investigate or prosecute any alcohol or drug abuse patient.[facility] HospitalIn the event this information is protected by the Federal Confidentiality of Alcohol and Drug Abuse Patient Records regulations: The Federal rules restrict any use of the information to criminally investigate or prosecute any alcohol or drug abuse patient.[facility] HospitalIn the event this information is protected by the Federal Confidentiality of Alcohol and Drug Abuse Patient Records regulations: The Federal rules restrict any use of the information to criminally investigate or prosecute any alcohol or drug abuse patient.[facility] HospitalIn the event this information is protected by the Federal Confidentiality of Alcohol and Drug Abuse Patient Records regulations: The Federal rules restrict any use of the information to criminally investigate or prosecute any alcohol or drug abuse patient.[facility] HospitalIn the event this information is protected by the Federal Confidentiality of Alcohol and Drug Abuse Patient Records regulations: The Federal rules restrict any use of the information to criminally investigate or prosecute any alcohol or drug abuse patient.[facility] HospitalIn the event this information is protected by the Federal Confidentiality of Alcohol and Drug Abuse Patient Records regulations: The Federal rules restrict any use of the information to criminally investigate or prosecute any alcohol or drug abuse patient.[facility] HospitalIn the event this information is protected by the Federal Confidentiality of Alcohol and Drug Abuse Patient Records regulations: The Federal rules restrict any use of the information to criminally investigate or prosecute any alcohol or drug abuse patient.[facility] HospitalIn the event this information is protected by the Federal Confidentiality of Alcohol and Drug Abuse Patient Records regulations: The Federal rules restrict any use of the information to criminally investigate or prosecute any alcohol or drug abuse patient.[facility] HospitalIn the event this information is protected by the Federal Confidentiality of Alcohol and Drug Abuse Patient Records regulations: The Federal rules restrict any use of the information to criminally investigate or prosecute any alcohol or drug abuse patient.[facility] HospitalIn the event this information is protected by the Federal Confidentiality of Alcohol and Drug Abuse Patient Records regulations: The Federal rules restrict any use of the information to criminally investigate or prosecute any alcohol or drug abuse patient.[facility] HospitalIn the event this information is protected by the Federal Confidentiality of Alcohol and Drug Abuse Patient Records regulations: The Federal rules restrict any use of the information to criminally investigate or prosecute any alcohol or drug abuse patient.[facility] HospitalIn the event this information is protected by the Federal Confidentiality of Alcohol and Drug Abuse Patient Records regulations: The Federal rules restrict any use of the information to criminally investigate or prosecute any alcohol or drug abuse patient.[facility] HospitalIn the event this information is protected by the Federal Confidentiality of Alcohol and Drug Abuse Patient Records regulations: The Federal rules restrict any use of the information to criminally investigate or prosecute any alcohol or drug abuse patient.[facility] HospitalIn the event this information is protected by the Federal Confidentiality of Alcohol and Drug Abuse Patient Records regulations: The Federal rules restrict any use of the information to criminally investigate or prosecute any alcohol or drug abuse patient.[facility] HospitalIn the event this information is protected by the Federal Confidentiality of Alcohol and Drug Abuse Patient Records regulations: The Federal rules restrict any use of the information to criminally investigate or prosecute any alcohol or drug abuse patient.[facility] HospitalIn the event this information is protected by the Federal Confidentiality of Alcohol and Drug Abuse Patient Records regulations: The Federal rules restrict any use of the information to criminally investigate or prosecute any alcohol or drug abuse patient.[facility] HospitalIn the event this information is protected by the Federal Confidentiality of Alcohol and Drug Abuse Patient Records regulations: The Federal rules restrict any use of the information to criminally investigate or prosecute any alcohol or drug abuse patient.[facility] Ordered Prescriptions (unrec ognized section and content) Prescription Sig Dispensed Refills Start Date End Da te amLODIPine (NORVASC) 5 MG tablet Take 1 tablet by mouth daily 30 tablet 3 04/04/2022 Prescription Sig Dispense Quantity Refills Last Filled Start Date End Date midodrine (PROAMATINE) 5 MG tablet Take 1 tablet by mouth 2 times daily (with meals) 90 tablet 3 03/24/2025 cephALEXin (KEFLEX) 250 MG capsule Take 1 capsule by mouth every 8 hours for 18 doses 18 capsule 03/24/2025 losartan (COZAAR) 25 MG tablet Take 1 tablet by mouth daily 30 tablet 3 03/25/2025 Prescription Sig Dispense Quantity Refills Last Filled Start Date End Date aspirin 81 MG chewable tablet Take 1 tablet by mouth daily 30 tablet 3 04/27/2025 Scheduled Active and Recently Administ ered Medications (unrecognized section and content) Medication Order 04/01/2022 04/02/2022 04/03/2022 amLODIPine (NORVASC) tablet 5 mg 5 mg, Oral, DAILY, First dose (after last modification) on Thu04/03/22 at 0915, Until Discontinued 924 (Given - Provid er: Vahe Daivla RN) carbidopa-levodopa (SINEMET) 25-100 MG per tablet 1 tablet 1 tablet, Oral, NIGHTLY, First dose on Thu04/02/22 at 2100, Until Discontinued 2143 (Given - Provider: Marbella Swanson RN) 2099 (Due) celecoxib (CELEBREX) capsule 200 mg 200 mg, Oral, DAILY, First dose on Thu04/03/22 at 0900, Until Discontinued 909 (Given - Provid er: Vahe Davila RN) clopidogrel (PLAVIX) tablet 75 mg 75 mg, Oral, DAILY, First dose on Thu04/03/22 at 0900, Until Discontinued 09 (Given - Provid er: Vahe Davila RN) doxycycline hyclate (VIBRAMYCIN) capsule 100 mg 100 mg, Oral, 2 TIMES DAILY, First dose on Thu04/03/22 at 0900, Until Discontinued, Antimicrobial Indications: Other, Other Abx Indication: right knee infection, This medication can interact with tube feedings (TF)- obtain MD order to manage. Recommend holding TF for 1 h before and 2 h after dose. Take 1 h before or 2 h after dairy, calcium, iron, magnesium, aluminum or zinc. 0910 (Given - Provid er: Vahe Davila RN)2100 (Due) famotidine (PEPCID) tablet 20 mg 20 mg, Oral, DAILY, First dose on Thu04/03/22 at 1630, Until Discontinued 163 (Given - Provid er: Vahe Davila RN) fludrocortisone (FLORINEF) tablet 0.1 mg 0.1 mg, Oral, DAILY, First dose on Thu04/03/22 at 0900, Until Discontinued 09 (Given - Provid er: Vahe Davila RN) levothyroxine (SYNTHROID) tablet 100 mcg 100 mcg, Oral, DAILY, First dose on Thu04/03/22 at 0700, Until Discontinued, Tube feeding (TF) interaction, obtain physician order to manage, recommend holding TF for 30 minutes before and after dose. 0650 (Given - Provid er: Vahe Davila RN) mometasone-formoterol (DULERA) 200-5 MCG/ACT inhaler 2 puff 2 puff, Inhalation, 2 TIMES DAILY, First dose on Thu04/02/22 at 2000, Until Discontinued, Rinse mouth out with water (without swallowing) after every dose. Therapeutic interchange for Trelegy Ellipta inhaler 2051 (Given - Provider: Priyanka Joseph RCP) 1028 (Given - Provider: Matilde Taylor RCP)1999 (Due) oxybutynin (DITROPAN) tablet 5 mg 5 mg, Oral, Nightly, First dose on Thu04/02/22 at 2100, Until Discontinued 2144 (Given - Provider: Marbella Swanson RN) 2099 (Due) Roflumilast (DALIRESP) tablet 500 mcg 500 mcg, Oral, DAILY, First dose on Thu04/03/22 at 0900, Until Discontinued 909 (Given - Provid er: Vahe Davila RN) sodium chloride flush 0.9 % injection 5-40 mL 5-40 mL, IntraVENous, EVERY 12 HOURS SCHEDULED (2 times per day), First dose on Thu04/02/22 at 2100, Until Discontinued, For Line Patency: Peripheral IV = 5 mL; Midline or Central Line = 10 mL/lumen. If following IV push medication, administer flush at same rate as the IV push. Flush volume is determined by type of infusion therapy being given. For non-viscous solutions use: Peripheral IV = 5 mL Midline or Central Line = 10 mL/lumen For viscous solutions (i.e. blood components, parenteral nutrition, contrast media, or after obtaining blood sample) use: Peripheral IV = 10 mL Midline or Central Line = 20 mL/lumen 2146 (Not Given - Provider: Marbella Swanson RN - Reason: IV Fluid Infusing) 928 (Not Given - Provider: Vahe Davila RN - Reason: IV Fluid Infusing)2099 (Due) tiotropium (SPIRIVA RESPIMAT) 2.5 MCG/ACT inhaler 2 puff 2 puff, Inhalation, DAILY, First dose on Thu04/03/22 at 0800, Until Discontinued, Therapeutic interchange for Trelegy Ellipta inhaler 1029 (Given - Provid er: Matilde Taylor TREATMENT SUPERVISOR) traZODone (DESYREL) tablet 150 mg 150 mg, Oral, NIGHTLY, First dose on Thu04/02/22 at 2100, Until Discontinued 2144 (Given - Provider: Marbella Swanson RN) 2099 (Due) warfarin (COUMADIN) tablet 5 mg 5 mg, Oral, ONCE Warfarin, 1 dose, On Thu04/03/22 at 1800, Indication of Use: A Fib/A Flutter, What is the patient's goal INR? 2.0 - 3.0, Review INR prior to administration. Hazardous med- See facility policy for handling/disposal 1800 (Due) warfarin (COUMADIN) tablet 7.5 mg (COMPLETED) 7.5 mg, Oral, ONCE Warfarin, 1 dose, On Thu04/02/22 at 204, Indication of Use: A Fib/A Flutter, What is the patient's goal INR? 2.0 - 3.0, Review INR prior to administration. Hazardous med- See facility policy for handling/disposal 9454 (Given - Provider: Marbella Swanson, OMAR) warfarin placeholder: dosing by pharmacy Please contact the pharmacy if a dose is not entered by 1600. Review INR prior to warfarin administration. Continuous Medication Order 04/01/2022 04/02/2022 04/03/2022 0.9 % sodium chloride infusion (CANCELED) IntraVENous, at 75 mL/hr, CONTINUOUS, Starting on Thu04/02/22 at 1630 1708 (New Bag - Provider: Shante Woo, OMAR) 1601 (Stopped - Provider: Vahe Davila RN) PRN Medication Order 04/01/2022 04/02/2022 04/03/2022 0.9 % sodium chloride infusion 25 mL, IntraVENous, at 100 mL/hr, PRN, If patient receiving piggyback infusions without ordered maintenance IV fluids or with frequent/long duration piggyback infusions, Starting on Thu04/02/22 at 1558, Administer at the same rate as the piggyback being infused. acetaminophen (TYLENOL) suppository 650 mg(Linked Group 1) 650 mg, Rectal, EVERY 6 HOURS PRN, Starting on Thu04/02/22 at 1558, Until Discontinued, Pain Mild (1-3), Fever, For temp greater than 100.4 F (38 C), Administer if oral route cannot be used. acetaminophen (TYLENOL) tablet 650 mg(Linked Group 1) 650 mg, Oral, EVERY 6 HOURS PRN, Starting on Thu04/02/22 at 1558, Until Discontinued, Pain Mild (1-3), Fever, For temp greater than 100.4 F (38 C), Maximum dose of acetaminophen is 4000 mg from all sources in 24 hours. hydrALAZINE (APRESOLINE) tablet 25 mg 25 mg, Oral, EVERY 4 HOURS PRN, Starting on Thu04/02/22 at 1557, Until Discontinued, for sbp > 180 nitroGLYCERIN (NITROSTAT) SL tablet 0.4 mg 0.4 mg, SubLINGual, EVERY 5 MIN PRN, 3 doses, Starting on Thu04/02/22 at 1558, Until Discontinued, Chest pain, Place 1 tablet under tongue upon chest pain, wait 5 minutes and may repeat up to 3 doses in 15 minutes. Do not crush or break. ondansetron (ZOFRAN) injection 4 mg(Linked Group 2) 4 mg, IntraVENous, EVERY 6 HOURS PRN, Starting on Thu04/02/22 at 1558, Until Discontinued, Nausea, Vomiting, Administer if oral route cannot be used. ondansetron (ZOFRAN-ODT) disintegrating tablet 4 mg(Linked Group 2) 4 mg, Oral, EVERY 8 HOURS PRN, Starting on Thu04/02/22 at 1558, Until Discontinued, Nausea, Vomiting polyethylene glycol (GLYCOLAX) packet 17 g 17 g, Oral, DAILY PRN, Starting on Thu04/02/22 at 1558, Until Discontinued, Constipation, First line therapy for constipation regadenoson (LEXISCAN) injection 0.4 mg (COMPLETED) 0.4 mg, IntraVENous, IMG ONCE PRN, 1 dose, Starting on Thu04/03/22 at 1156, Until Thu04/03/22 at 1206, Other 1206 (Given - Provid er: Sherice Roman RN) sodium chloride flush 0.9 % injection 5-40 mL 5-40 mL, IntraVENous, PRN, Starting on Thu04/02/22 at 1558, Until Discontinued, Line Care, After every IV line use, For Line Patency: Peripheral IV = 5 mL; Midline or Central Line = 10 mL/lumen. If following IV push medication, administer flush at same rate as the IV push. Flush volume is determined by type of infusion therapy being given. For non-viscous solutions use: Peripheral IV = 5 mL Midline or Central Line = 10 mL/lumen For viscous solutions (i.e. blood components, parenteral nutrition, contrast media, or after obtaining blood sample) use: Peripheral IV = 10 mL Midline or Central Line = 20 mL/lumen technetium sestamibi (CARDIOLITE) injection 10 millicurie (COMPLETED) 10 millicurie, IntraVENous, IMG ONCE PRN, 1 dose, Starting on Thu04/03/22 at 1004, Until Discontinued, Other 1000 (Given - Provid er: Jeff Ramirez) technetium sestamibi (CARDIOLITE) injection 30 millicurie (COMPLETED) 30 millicurie, IntraVENous, IMG ONCE PRN, 1 dose, Starting on Chana 04/03/22 at 1004, Until Discontinued, Other 1150 (Given - Provid er: Jeff Ramirez) Linked Groups Order Group 1: acetaminophen (TYLENOL) tablet 650 mgJump to med 650 mg, Oral, EVERY 6 HOURS PRN, Starting on Thu04/02/22 at 1558, Until Discontinued, Pain Mild (1-3), Fever, For temp greater than 100.4 F (38 C)
Maximum dose of acetaminophen is 4000 mg from all sources in 24 hours.
Or acetaminophen (TYLENOL) suppository 650 mgJump to med 650 mg, Rectal, EVERY 6 HOURS PRN, Starting on Thu04/02/22 at 1558, Until Discontinued, Pain Mild (1-3), Fever, For temp greater than 100.4 F (38 C)
Administer if oral route cannot be used.
Group 2: ondansetron (ZOFRAN-ODT) disintegrating tablet 4 mgJump to med 4 mg, Oral, EVERY 8 HOURS PRN, Starting on Thu04/02/22 at 1558, Until Discontinued, Nausea, Vomiting Or ondansetron (ZOFRAN) injection 4 mgJump to med 4 mg, IntraVENous, EVERY 6 HOURS PRN, Starting on Thu04/02/22 at 1558, Until Discontinued, Nausea, Vomiting
Administer if oral route cannot be used.
Scheduled Medication Order 03/30/2024 03/31/2024 04/01/2024 apixaban (Eliquis) tablet 2.5 mg 2.5 mg, oral, 2 times daily, First dose on Thu03/28/24 at 2100 0900 (Not Given - Provider: Kelly Taveras RN - Reason: See Provider Order)2100 (Not Given - Provider: Corrina Avitia LPN - Reason: See Provider Order) 0900 (Not Given - Provider: Cecelia Cid RN - Reason: See Provider Order)2100 (Not Given - Provider: Caryn Salmon RN - Reason: See Provider Order) 0800 (Unheld by provider - Provider: Sylvain Pimentel DO - Reason: Other)0827 (Given - Provider: Robbie Moore RN)2100 (Due) azelastine (Astelin) 137 mcg (0.1 %) nasal spray 2 spray 2 spray, Each Nostril, 2 times daily, First dose on Thu03/28/24 at 2099 899 (Not Given - Provider: Kelly Taveras RN - Reason: Patient/family refused)2099 (Not Given - Provider: Corrina Avitia LPN - Reason: Patient/family refused) 899 (Not Given - Provider: Cecelia Cid RN - Reason: Patient/family refused)2099 (Not Given - Provider: Caryn Salmon RN - Reason: Other - Comment: pt asleep) 08 (Given - Provider: Robbie Moore RN)2099 (Due) barium sulfate (E-Z-Paque) 96 % (w/w) suspension 150 mL (COMPLETED) 150 mL, oral, Once in imaging, Starting on Thu04/01/24 at 1042, For 1 dose 1044 (Given - Provider: Malia Price) calcium carbonate (Tums) chewable tablet 500 mg 500 mg, oral, 2 times daily, First dose on Thu03/28/24 at 2099 899 (Not Given - Provider: Kelly Taveras RN - Reason: Patient/family refused)2005 (Given - Provider: Corrina Avitia LPN) 957 (Given - Provider: Cecelia Cid RN)2108 (Given - Provider: Caryn Salmon RN) 08 (Given - Provider: Robbie Moore RN)2099 (Due) carbidopa-levodopa (Sinemet) 25-100 mg per tablet 1 tablet 1 tablet, oral, Nightly, First dose on Thu03/28/24 at 2099 2005 (Given - Provider: Corrina Avitia LPN) 2108 (Given - Provider: Caryn Salmon RN) 2099 (Due) clopidogrel (Plavix) tablet 75 mg 75 mg, oral, Daily, First dose on Thu03/28/24 at 2029 0900 (Not Given - Provider: Kelly Taveras RN - Reason: See Provider Order) 09 (Not Given - Provider: Cecelia Cid RN - Reason: See Provider Order) 0800 (Unheld by provider - Provider: Sylvain Pimentel DO - Reason: Other)0827 (Given - Provider: Robbie Moore, OMAR) diatrizoate lele-diatrizoat sod (Gastrografin 37% organic bound iodine) solution 30 mL (COMPLETED) 30 mL, oral, Once, On Thu04/01/24 at 1100, For 1 dose, What is the indication of use? Diagnostic Use 1044 (Given - Provider: Malia Price) famotidine (Pepcid) tablet 40 mg 40 mg, oral, Daily, First dose on Thu03/28/24 at 2030 0900 (Not Given - Provider: Kelly Taveras RN - Reason: Patient/family refused) 0958 (Given - Provider: Cecelia Cid RN) 0827 (Given - Provider: Robbie Moore, OMAR) fludrocortisone (Florinef) tablet 0.1 mg 0.1 mg, oral, Daily, First dose on Thu03/28/24 at 2030, On hold since Thu03/28/2024 at 2012 until manually unheld 0900 (Not Given - Provider: Kelly Taveras RN - Reason: See Provider Order) 0900 (Not Given - Provider: Cecelia Cid RN - Reason: See Provider Order) 0900 (Not Given - Provider: Robbie Moore RN - Reason: See Provider Order) fluticasone (Flonase) nasal spray 2 spray 2 spray, Each Nostril, Daily RT, First dose on Thu03/29/24 at 0700, Shake gently. Before first use, prime pump (press 6 times until fine spray appears). After use, clean tip and replace cap. 0700 (Not Given - Provider: Kelly Taveras RN - Reason: Patient/family refused) 0624 (Given - Provider: Corrina Avitia LPN) 0827 (Given - Provider: Robbie Moore, OMAR) fluticasone furoate-vilanteroL (Breo Ellipta) 100-25 mcg/dose inhaler 1 puff(Linked Group 1) 1 puff, inhalation, Daily RT, First dose on Thu03/29/24 at 0700 0946 (Given - Provider: Kelly Taveras RN) 1000 (Given - Provider: Cecelia Cid, RN) 0827 (Given - Provider: Robbie Moore, RN) furosemide (Lasix) tablet 20 mg 20 mg, oral, Daily, First dose on Thu03/28/24 at 2030 0947 (Given - Provider: Kelly Taveras RN) 0958 (Given - Provider: Cecelia Cid RN) 0827 (Given - Provider: Robbie Moore RN) heparin (porcine) injection 5,000 Units (COMPLETED) 5,000 Units, subcutaneous, Every 8 hours, First dose on Thu03/29/24 at 1400, For 5 doses 0531 (Given - Provider: Jacinta Owen RN)1337 (Given - Provider: Kelly Taveras RN)2217 (Given - Provider: Corrina Avitia LPN) hydrALAZINE (Apresoline) tablet 25 mg 25 mg, oral, Every 8 hours, First dose on Thu03/28/24 at 2030 0529 (Given - Provider: Jacinta Owen RN)1230 (Not Given - Provider: Kelly Taveras RN - Reason: Other - Comment: lower bp!)2005 (Given - Provider: Corrina Avitia LPN) 0457 (Given - Provider: Corrina Avitia LPN)1216 (Given - Provider: Robbie Moore RN)2109 (Given - Provider: Caryn Salmon, OMAR) 0440 (Given - Provider: Caryn Salmon, OMAR)1249 (Given - Provider: Robbie Moore RN)2030 (Due) lactated Ringer's bolus 500 mL 500 mL, intravenous, at 250 mL/hr, Administer over 2 Hours, Once, On Thu03/28/24 at 1930, For 1 dose levothyroxine (Synthroid, Levoxyl) tablet 112 mcg 112 mcg, oral, Daily RT, First dose on Thu03/29/24 at 0700 0619 (Given - Provider: Jacinta Owen RN) 0624 (Given - Provider: Corrina Avitia LPN) 0614 (Given - Provider: Caryn Salmon, OMAR) lidocaine PF (Xylocaine) 10 mg/mL (1 %) injection 1 mg 1 mg (0.1 mL), subcutaneous, Once, On Chana 03/31/24 at 0930, For 1 dose, Recovery (only), To be used for IV insertion ONLY 0930 (Due) metoprolol succinate XL (Toprol-XL) 24 hr tablet 100 mg 100 mg, oral, Daily, First dose on Thu03/28/24 at 2030, Do not crush or chew. 0947 (Given - Provider: Kelly Taveras, OMAR) 0958 (Given - Provider: Cecelia Cid RN) 08 (Given - Provider: Robbie Moore, OMAR) montelukast (Singulair) tablet 10 mg 10 mg, oral, Nightly, First dose on Thu03/28/24 at 2100 2005 (Given - Provider: Corrina Avitia LPN) 2109 (Given - Provider: Caryn Salmon RN) 2099 (Due) onabotulinumtoxinA (Botox) injection 100 Units (COMPLETED) 100 Units, intramuscular, Once, On Thu03/31/24 at 0900, For 1 dose 0845 (Given - Provider: Nolan Julio MD MPH - Comment: 100 UNITS BOTOX RECONSTITUTED WITH 4ML SODIUM CHLORIDE PER DR JULIO, INJECTED INTO DISTAL ESOPHAGUS)0900 (Not Given - Provider: Debi Diop RN - Reason: Other - Comment: duplicate entry) polyethylene glycol (Glycolax, Miralax) packet 17 g (CANCELED) 17 g, oral, Daily, First dose on Thu03/28/24 at 1805, Bowel Regimen - for prevention of constipation. 0900 (Not Given - Provider: Kelly Taveras RN - Reason: Patient/family refused) 0959 (Given - Provider: Cecelia Cid RN) potassium phosphates 15 mmol in dextrose 5% 250 mL IV (COMPLETED) 15 mmol, intravenous, at 63.8 mL/hr, Administer over 4 Hours, Once, On Thu04/01/24 at 0930, For 1 dose, Each 3 mmol contains 4.4 mEq potassium. 0951 (New Bag - Provider: Robbie Moore, RN)1351 (Stopped - Provider: Robbie Moore, RN) roflumilast (Daliresp) tablet 500 mcg 500 mcg, oral, Daily RT, First dose on Thu03/29/24 at 0700 0700 (Not Given - Provider: Kelly Taveras RN - Reason: Patient/family refused) 0700 (Due) 0700 (Due) thiamine (Vitamin B-1) tablet 100 mg 100 mg, g-tube, Daily, First dose on Thu03/29/24 at 1230, For 10 doses 0900 (Not Given - Provider: Kelly Taveras RN - Reason: Patient/family refused) 0958 (Given - Provider: Cecelia Cid RN) 0827 (Given - Provider: Robbie Moore, RN) tiotropium (Spiriva Respimat) 2.5 mcg/actuation inhaler 2 puff(Linked Group 1) 2 puff, inhalation, Daily RT, First dose on Thu03/29/24 at 0700, Label inhaler with 3 month expiration date after inserting canister. 0945 (Given - Provider: Kelly Taveras RN) 1000 (Given - Provider: Cecelia Cid RN) 0828 (Given - Provider: Robbie Moore RN) traZODone (Desyrel) tablet 150 mg 150 mg, oral, Nightly, First dose on Thu03/28/24 at 2100 2005 (Given - Provider: Corrina Avitia LPN) 213 (Given - Provider: Caryn Salmon RN - Comment: ok to give per resident Dr. Oliva) 2100 (Due) Continuous Medication Order 03/30/2024 03/31/2024 04/01/2024 lactated Ringer's infusion (CANCELED) 20 mL/hr, intravenous, Continuous, Starting on Thu03/31/24 at 0800, Preprocedure 0744 (New Bag - Provider: Alee Lux RN)1014 (Rate/Dose Verify - Provider: Cecelia Cid, OMAR)1044 (Stopped - Provider: Robbie Moore, OMAR) PRN Medication Order 03/30/2024 03/31/2024 04/01/2024 acetaminophen (Tylenol) oral liquid 650 mg(Linked Group 2) 650 mg, oral, Every 4 hours PRN, pain mild (1-3), first line, Starting on Thu03/28/24 at 1803, Give oral liquid per feeding tube if present or if patient prefers oral liquid over tablets. acetaminophen (Tylenol) suppository 650 mg(Linked Group 2) 650 mg, rectal, Every 4 hours PRN, pain mild (1-3), first line, Starting on Thu03/28/24 at 1803, Give rectally if unable to administer by mouth or feeding tube., If ordered PRN for pain, nurse is permitted to administer this medication for higher pain scores based on patient preference? Yes acetaminophen (Tylenol) tablet 650 mg(Linked Group 2) 650 mg, oral, Every 4 hours PRN, pain mild (1-3), first line, Starting on Thu03/28/24 at 1803, Administer tablet or oral liquid per patient preference., If ordered PRN for pain, nurse is permitted to administer this medication for higher pain scores based on patient preference? Yes HYDROmorphone (Dilaudid) injection 0.4 mg 0.4 mg, intravenous, Every 3 hours PRN, pain breakthrough, Starting on Thu03/28/24 at 1854 1336 (Given - Provider: Kelly Taveras RN) labetaloL (Normodyne,Trandate) injection 10 mg 10 mg, intravenous, Every 4 hours PRN, SBP >100mmHg, Starting on Thu03/28/24 at 2015, Give at rate of 10 mg/min. ondansetron (Zofran) injection 4 mg(Linked Group 3) 4 mg, intravenous, Every 6 hours PRN, nausea/vomiting, first line, nausea, vomiting,, Starting on Thu03/29/24 at 0343, Give IV if patient is unable to take orally. When administering via IV Push, administer over 3-5 minutes. 0947 (Given - Provider: Kelly Taveras RN)1804 (Given - Provider: Kelly Taveras RN) ondansetron ODT (Zofran-ODT) disintegrating tablet 4 mg(Linked Group 3) 4 mg, oral, Every 6 hours PRN, nausea/vomiting, first line, nausea, vomiting,, Starting on Thu03/29/24 at 0343, Patient should allow tablet to dissolve on tongue. Do not remove from blister pack until just before administering. 0947 (See Alternative - Provider: Kelly Taveras RN)1804 (See Alternative - Provider: Kelly Taveras, OMAR) oxyCODONE (Roxicodone) immediate release tablet 10 mg 10 mg, oral, Every 6 hours PRN, pain severe (7-10), first line, Starting on Thu03/28/24 at 1854, If ordered PRN for pain, nurse is permitted to administer this medication for higher pain scores based on patient preference? Yes 2004 (Given - Provider: Corrina Avitia LPN) 955 (Given - Provider: Cecelia Cid RN) oxyCODONE (Roxicodone) immediate release tablet 5 mg 5 mg, oral, Every 6 hours PRN, pain moderate (4-6), first line, Starting on Thu03/28/24 at 1854, If ordered PRN for pain, nurse is permitted to administer this medication for higher pain scores based on patient preference? Yes 945 (Given - Provider: Kelly Taveras RN) oxygen (O2) therapy inhalation, Continuous PRN - O2/gases, other, Starting on Thu03/29/24 at 0904, Device: Nasal Cannula, Rate in liters per minute: 2 LPM, Keep O2 Sat Above: 90% oxygen (O2) therapy inhalation, Continuous PRN - O2/gases, other, Starting on Thu03/31/24 at 0906, Recovery (only), Device: Nasal Cannula, Rate in liters per minute: Other, Custom Value: 1-6 LPM, Keep O2 Sat Above: 92% polyethylene glycol (Glycolax, Miralax) packet 17 g 17 g, oral, Daily PRN, constipation, Starting on Thu03/31/24 at 1030, Bowel Regimen - for prevention of constipation. prochlorperazine (Compazine) injection 10 mg(Linked Group 4) 10 mg, intravenous, Every 6 hours PRN, nausea/vomiting, first line, Starting on Thu03/29/24 at 1302, Give IV if patient is unable to take orally. prochlorperazine (Compazine) suppository 25 mg(Linked Group 4) 25 mg, rectal, Every 12 hours PRN, nausea/vomiting, first line, Starting on Thu03/29/24 at 1302, Give MN if patient is unable to take orally or receive by injection. prochlorperazine (Compazine) tablet 10 mg(Linked Group 4) 10 mg, oral, Every 6 hours PRN, nausea/vomiting, first line, Starting on Thu03/29/24 at 1302 Linked Groups Order Group 1: tiotropium (Spiriva Respimat) 2.5 mcg/actuation inhaler 2 puffJump to med 2 puff, inhalation, Daily RT, First dose on Thu03/29/24 at 0700, Label inhaler with 3 month expiration date after inserting canister. And fluticasone furoate-vilanteroL (Breo Ellipta) 100-25 mcg/dose inhaler 1 puffJump to med 1 puff, inhalation, Daily RT, First dose on Thu03/29/24 at 0700 Group 2: acetaminophen (Tylenol) tablet 650 mgJump to med 650 mg, oral, Every 4 hours PRN, pain mild (1-3), first line, Starting on Thu03/28/24 at 1803, Administer tablet or oral liquid per patient preference., If ordered PRN for pain, nurse is permitted to administer this medication for higher pain scores based on patient preference? Yes Or acetaminophen (Tylenol) oral liquid 650 mgJump to med 650 mg, oral, Every 4 hours PRN, pain mild (1-3), first line, Starting on Thu03/28/24 at 1803, Give oral liquid per feeding tube if present or if patient prefers oral liquid over tablets. Or acetaminophen (Tylenol) suppository 650 mgJump to med 650 mg, rectal, Every 4 hours PRN, pain mild (1-3), first line, Starting on Thu03/28/24 at 1803, Give rectally if unable to administer by mouth or feeding tube., If ordered PRN for pain, nurse is permitted to administer this medication for higher pain scores based on patient preference? Yes Group 3: ondansetron ODT (Zofran-ODT) disintegrating tablet 4 mgJump to med 4 mg, oral, Every 6 hours PRN, nausea/vomiting, first line, nausea, vomiting,, Starting on Thu03/29/24 at 0343, Patient should allow tablet to dissolve on tongue. Do not remove from blister pack until just before administering. Or ondansetron (Zofran) injection 4 mgJump to med 4 mg, intravenous, Every 6 hours PRN, nausea/vomiting, first line, nausea, vomiting,, Starting on Thu03/29/24 at 0343, Give IV if patient is unable to take orally. When administering via IV Push, administer over 3-5 minutes. Group 4: prochlorperazine (Compazine) tablet 10 mgJump to med 10 mg, oral, Every 6 hours PRN, nausea/vomiting, first line, Starting on Thu03/29/24 at 1302 Or prochlorperazine (Compazine) injection 10 mgJump to med 10 mg, intravenous, Every 6 hours PRN, nausea/vomiting, first line, Starting on Thu03/29/24 at 1302, Give IV if patient is unable to take orally. Or prochlorperazine (Compazine) suppository 25 mgJump to med 25 mg, rectal, Every 12 hours PRN, nausea/vomiting, first line, Starting on Thu03/29/24 at 1302, Give MN if patient is unable to take orally or receive by injection. Scheduled Medication Order 03/18/2025 03/19/2025 03/20/2025 acetaminophen (TYLENOL) tablet 1,000 mg (COMPLETED) 1,000 mg, Oral, ONCE, 1 dose, On Thu03/20/25 at 1530, Maximum dose of acetaminophen is 4000 mg from all sources in 24 hours. 1542 (Given - Provid er: Kelly Maldonado RN) tranexamic acid (CYKLOKAPRON) injection 1,000 mg (COMPLETED) 1,000 mg, Topical, ONCE, 1 dose, On Thu03/20/25 at 1330 1328 (Given - Provid er: Kelly Maldonado RN - Comment: left giron skin tear) Scheduled Medication Order 03/22/2025 03/23/2025 03/24/2025 atorvastatin (LIPITOR) tablet 40 mg 40 mg, Oral, NIGHTLY, First dose on Thu03/21/25 at 2100, Until Discontinued 2146 (Given - Provider: Imani Johnson RN) 221 (Given - Provider: Imani Johnson RN) 2100 (Due) calcium gluconate 2,000 mg in sodium chloride 100 mL (COMPLETED) 2,000 mg, IntraVENous, at 50 mL/hr, Administer over 120 Minutes, ONCE, On Thu03/24/25 at 0700, For 1 dose 0821 (New Bag - Provider: Rashmi Liu RN)0935 (Stopped - Provider: Rashmi Liu RN) celecoxib (CELEBREX) capsule 200 mg 200 mg, Oral, 2 TIMES DAILY, First dose on Thu03/21/25 at 2100, Until Discontinued, On hold since Thu03/24/2025 at 0818 until manually unheld 0856 (Given - Provider: Makayla Smallwood RN)2147 (Given - Provider: Imani Johnson RN) 0851 (Given - Provider: Melania Mcclendon, RN)2211 (Given - Provider: Imani Johnson RN) 0818 (Held by provider - Provider: WEST Boyd CNP - Reason: Other - Comment: Low Hgb)0900 (Automatically Held - Provider: WEST Boyd CNP)2100 (Automatically Held - Provider: WEST Boyd CNP) cephALEXin (KEFLEX) capsule 250 mg 250 mg, Oral, EVERY 8 HOURS SCHEDULED (3 times per day), 21 doses, First dose on Thu03/23/25 at 1630, Last dose on Thu03/30/25 at 0600, Antimicrobial Indications: Urinary Tract Infection, UTI duration of therapy: 7 days 1608 (Given - Provider: Eryn Bai RN)2211 (Given - Provider: Imani Johnson RN) 0600 (Given - Provider: Imani Johnson RN)1310 (Given - Provider: Rashmi Liu RN)2200 (Due) clopidogrel (PLAVIX) tablet 75 mg 75 mg, Oral, DAILY, First dose on Thu03/21/25 at 1800, Until Discontinued, On hold since Thu03/24/2025 at 0818 until manually unheld 0856 (Given - Provider: Makayla Smallwood RN) 0850 (Given - Provider: Melania Mcclendon, OMAR) 0818 (Held by provider - Provider: WEST Body CNP - Reason: Other - Comment: Low hgb)0900 (Automatically Held - Provider: Analy Johnson, FARM FACILITY MANAGER - BIOGEOGRAPHER) famotidine (PEPCID) tablet 10 mg 10 mg, Oral, DAILY, First dose (after last modification) on Thu03/24/25 at 0900, Until Discontinued 0825 (Given - Provider: Rashmi Liu, OMAR) famotidine (PEPCID) tablet 20 mg (CANCELED) 20 mg, Oral, DAILY, First dose on Thu03/21/25 at 1800, Until Discontinued 08 (Given - Provider: Makayla Smallwood, OMAR) 0851 (Given - Provider: Melania Mcclendon, OMAR) fludrocortisone (FLORINEF) tablet 0.2 mg 0.2 mg, Oral, DAILY, First dose on Thu03/21/25 at 1800, Until Discontinued 08 (Given - Provider: Makayla Smallwood RN) 0851 (Given - Provider: Melania Mcclendon, OMAR) 0824 (Given - Provider: Rashmi Liu RN) fsvsdpirugg-rerllluoo-zmx ant (TRELEGY ELLIPTA) 100-62.5-25 MCG/ACT inhaler 1 puff (Patient Supplied) 1 puff, Inhalation, DAILY, First dose on Thu03/23/25 at 0900, Until Discontinued, Rinse mouth out with water (without swallowing) after every dose. 08 (Given - Provider: Floridalma Abreu RCP) 101 (Given - Provider: Floridalma Abreu RCP) ipratropium 0.5 mg-albuterol 2.5 mg (DUONEB) nebulizer solution 1 Dose (CANCELED) 1 Dose, Inhalation, 4 TIMES DAILY RESP, First dose on Thu03/22/25 at 1600, Until Discontinued, Initiate RT Bronchodilator Protocol: Yes - Inpatient Protocol 151 (Given - Provider: Marleni Barnes RCP)2033 (Given - Provider: Ashlie Acosta RCP) 0541 (Given - Provider: Ashlie Acosta RCP) iron sucrose (VENOFER) 300 mg in sodium chloride 0.9 % 250 mL IVPB (COMPLETED) 300 mg, IntraVENous, at 176.7 mL/hr, Administer over 90 Minutes, ONCE, On Thu03/23/25 at 2000, For 1 dose 2034 (New Bag - Provider: Imani Johnson RN)2204 (Stopped - Provider: Imani Johnson RN) levothyroxine (SYNTHROID) tablet 100 mcg 100 mcg, Oral, DAILY, First dose on Thu03/21/25 at 1800, Until Discontinued, Tube feeding (TF) interaction, obtain physician order to manage, recommend holding TF for 30 minutes before and after dose. 0856 (Given - Provider: Makayla Smallwood RN) 0851 (Given - Provider: Melania Mcclendon RN) 0824 (Given - Provider: Rashmi Liu RN) losartan (COZAAR) tablet 25 mg 25 mg, Oral, DAILY, First dose on Thu03/24/25 at 1000, Until Discontinued 0950 (Given - Provider: Rashmi Liu RN) metoprolol succinate (TOPROL XL) extended release tablet 100 mg 100 mg, Oral, DAILY, First dose on Thu03/21/25 at 1800, Until Discontinued, Do not crush or chew. 0856 (Given - Provider: Makayla Smallwood RN) 0851 (Given - Provider: Melania Mcclendon RN) 0825 (Given - Provider: Rashmi Liu RN) midodrine (PROAMATINE) tablet 2.5 mg (CANCELED) 2.5 mg, Oral, 2 TIMES DAILY WITH MEALS, First dose on Thu03/23/25 at 0900, Until Discontinued, Do not give after 1800 or within 4 hrs of bedtime. 0851 (Given - Provider: Melania Mcclendon RN)1608 (Given - Provider: Eryn Bai RN) midodrine (PROAMATINE) tablet 5 mg 5 mg, Oral, 2 TIMES DAILY WITH MEALS, First dose (after last modification) on Thu03/24/25 at 0800, Until Discontinued, Do not give after 1800 or within 4 hrs of bedtime. 0826 (Given - Provider: Rashmi Liu RN)1700 (Due) montelukast (SINGULAIR) tablet 10 mg 10 mg, Oral, NIGHTLY, First dose on Thu03/21/25 at 2100, Until Discontinued 2146 (Given - Provider: Imani Johnson RN) 221 (Given - Provider: Imani Johnson RN) 2099 (Due) oxyBUTYnin (DITROPAN-XL) extended release tablet 10 mg 10 mg, Oral, DAILY, First dose on Thu03/21/25 at 1800, Until Discontinued, Do not crush or break. 0857 (Given - Provider: Makayla Smallwood RN) 0850 (Given - Provider: Melania Mcclendon RN) 0824 (Given - Provider: Rashmi Liu RN) Roflumilast (DALIRESP) tablet 500 mcg 500 mcg, Oral, DAILY, First dose on Thu03/21/25 at 1800, Until Discontinued 0857 (Given - Provider: Makayla Smallwood RN) 0850 (Given - Provider: Melania Mcclendon RN) 0825 (Given - Provider: Rashmi Liu RN) rOPINIRole (REQUIP) tablet 2 mg 2 mg, Oral, NIGHTLY, First dose on Thu03/21/25 at 2100, Until Discontinued 2146 (Given - Provider: Imani Johnson RN) 2211 (Given - Provider: Imani Johnson RN) 2099 (Due) sodium chloride flush 0.9 % injection 5-40 mL 5-40 mL, IntraVENous, EVERY 12 HOURS SCHEDULED (2 times per day), First dose on Thu03/21/25 at 2100, Until Discontinued, For Line Patency: Peripheral IV = 5 mL; Midline or Central Line = 10 mL/lumen. If following IV push medication, administer flush at same rate as the IV push. Flush volume is determined by type of infusion therapy being given. For non-viscous solutions use: Peripheral IV = 5 mL Midline or Central Line = 10 mL/lumen For viscous solutions (i.e. blood components, parenteral nutrition, contrast media, or after obtaining blood sample) use: Peripheral IV = 10 mL Midline or Central Line = 20 mL/lumen 0738 (Not Given - Provider: Makayla Smallwood RN - Reason: IV Fluid Infusing)2149 (Given - Provider: Imani Johnson RN) 0929 (Not Given - Provider: Melania Mcclendon RN - Reason: IV Fluid Infusing)221 (Given - Provider: Imani Johnson RN) 0825 (Not Given - Provider: Rashmi Liu, OMAR - Reason: IV Fluid Infusing)2100 (Due) Continuous Medication Order 03/22/2025 03/23/2025 03/24/2025 0.9 % sodium chloride infusion (CANCELED) IntraVENous, at 75 mL/hr, CONTINUOUS, Starting on Thu03/21/25 at 1800 0047 (New Bag - Provider: Aleksandr Ernst, RN)1355 (New Bag - Provider: Makayla Smallwood, RN) 0415 (New Bag - Provider: Angelica Mckeon, OMAR)1613 (New Bag - Provider: Eryn Bai, OMAR) 0457 (New Bag - Provider: Imani Johnson RN)0812 (Stopped - Provider: Rashmi Liu RN) PRN Medication Order 03/22/2025 03/23/2025 03/24/2025 0.9 % sodium chloride infusion IntraVENous, at 5-250 mL/hr, PRN, if patient receiving piggyback infusions and maintenance fluids are not ordered OR KVO fluids to protect IV site / prevent frequent line interruptions/ long duration, Starting on Thu03/21/25 at 1736, For piggyback infusion, administer at same rate as piggyback for a total of 25 mL. Enter 25 mL into dose field and piggyback rate into rate field of order. If piggyback is infusing at a rate less than 100 mL/hr, enter 25 mL into dose field and 100 mL/hr into rate field of order. For KVO fluids, enter rate of 20 mL/hr or less into rate field of order. acetaminophen (TYLENOL) suppository 650 mg(Linked Group 1) 650 mg, Rectal, EVERY 6 HOURS PRN, Starting on Thu03/21/25 at 1736, Until Discontinued, Pain Mild (1-3) OR per patient request for pain score (4-10), Fever, For temp greater than 100.4 F (38 C), Administer if oral route cannot be used. acetaminophen (TYLENOL) tablet 650 mg(Linked Group 1) 650 mg, Oral, EVERY 6 HOURS PRN, Starting on Thu03/21/25 at 1736, Until Discontinued, Pain Mild (1-3) OR per patient request for pain score (4-10), Fever, For temp greater than 100.4 F (38 C), Maximum dose of acetaminophen is 4000 mg from all sources in 24 hours. ipratropium 0.5 mg-albuterol 2.5 mg (DUONEB) nebulizer solution 1 Dose 1 Dose, Inhalation, EVERY 4 HOURS PRN, Starting on Chana 03/23/25 at 0815, Until Discontinued, Shortness of Breath, Initiate RT Bronchodilator Protocol: Yes - Inpatient Protocol ondansetron (ZOFRAN) injection 4 mg(Linked Group 2) 4 mg, IntraVENous, EVERY 6 HOURS PRN, Starting on Thu03/21/25 at 1736, Until Discontinued, Nausea, Vomiting, Administer if oral route cannot be used. ondansetron (ZOFRAN-ODT) disintegrating tablet 4 mg(Linked Group 2) 4 mg, Oral, EVERY 8 HOURS PRN, Starting on Thu03/21/25 at 1736, Until Discontinued, Nausea, Vomiting polyethylene glycol (GLYCOLAX) packet 17 g 17 g, Oral, DAILY PRN, Starting on Thu03/21/25 at 1736, Until Discontinued, Constipation, First line therapy for constipation sodium chloride flush 0.9 % injection 10 mL 10 mL, IntraVENous, PRN, Starting on Thu03/21/25 at 1736, Until Discontinued, Line Care, After every IV line use traZODone (DESYREL) tablet 50 mg 50 mg, Oral, NIGHTLY PRN, Starting on Thu03/21/25 at 2247, Until Discontinued, Sleep 2147 (Given - Provider: Imani Johnson RN) 2211 (Given - Provider: Imani Johnson RN) Linked Groups Order Group 1: acetaminophen (TYLENOL) tablet 650 mgJump to med 650 mg, Oral, EVERY 6 HOURS PRN, Starting on Thu03/21/25 at 1736, Until Discontinued, Pain Mild (1-3) OR per patient request for pain score (4-10), Fever, For temp greater than 100.4 F (38 C), Maximum dose of acetaminophen is 4000 mg from all sources in 24 hours. Or acetaminophen (TYLENOL) suppository 650 mgJump to med 650 mg, Rectal, EVERY 6 HOURS PRN, Starting on Thu03/21/25 at 1736, Until Discontinued, Pain Mild (1-3) OR per patient request for pain score (4-10), Fever, For temp greater than 100.4 F (38 C), Administer if oral route cannot be used. Group 2: ondansetron (ZOFRAN-ODT) disintegrating tablet 4 mgJump to med 4 mg, Oral, EVERY 8 HOURS PRN, Starting on Thu03/21/25 at 1736, Until Discontinued, Nausea, Vomiting Or ondansetron (ZOFRAN) injection 4 mgJump to med 4 mg, IntraVENous, EVERY 6 HOURS PRN, Starting on Thu03/21/25 at 1736, Until Discontinued, Nausea, Vomiting, Administer if oral route cannot be used. Scheduled Medication Order 04/24/2025 04/25/2025 04/26/2025 aspirin chewable tablet 81 mg 81 mg, Oral, DAILY, First dose on Chana 04/27/25 at 0900, Until Discontinued, Recovery(Cath) clopidogrel (PLAVIX) tablet 75 mg 75 mg, Oral, DAILY, First dose on Thu04/27/25 at 0900, Until Discontinued, Recovery(Cath) sodium chloride flush 0.9 % injection 5-40 mL 5-40 mL, IntraVENous, EVERY 12 HOURS SCHEDULED (2 times per day), First dose on Thu04/26/25 at 1045, Until Discontinued, For Line Patency: Peripheral IV = 5 mL; Midline or Central Line = 10 mL/lumen. If following IV push medication, administer flush at same rate as the IV push. Flush volume is determined by type of infusion therapy being given. For non-viscous solutions use: Peripheral IV = 5 mL Midline or Central Line = 10 mL/lumen For viscous solutions (i.e. blood components, parenteral nutrition, contrast media, or after obtaining blood sample) use: Peripheral IV = 10 mL Midline or Central Line = 20 mL/lumen, PACU only 1045 (Due)2100 (Due) sodium chloride flush 0.9 % injection 5-40 mL 5-40 mL, IntraVENous, EVERY 12 HOURS SCHEDULED (2 times per day), First dose on Thu04/26/25 at 1030, Until Discontinued, For Line Patency: Peripheral IV = 5 mL; Midline or Central Line = 10 mL/lumen. If following IV push medication, administer flush at same rate as the IV push. Flush volume is determined by type of infusion therapy being given. For non-viscous solutions use: Peripheral IV = 5 mL Midline or Central Line = 10 mL/lumen For viscous solutions (i.e. blood components, parenteral nutrition, contrast media, or after obtaining blood sample) use: Peripheral IV = 10 mL Midline or Central Line = 20 mL/lumen, Recovery(Cath) 1030 (Due)2100 (Due) Continuous Medication Order 04/24/2025 04/25/2025 04/26/2025 0.9 % sodium chloride infusion (CANCELED) IntraVENous, at 75 mL/hr, CONTINUOUS, Starting on Thu04/26/25 at 0745, Pre-Procedure(Cath) 0815 (New Bag - Prov ider: Morteza Alexander APRN - DIE BAKER)0843 (Anesthesia Volume Adjustment - Provider: Marielle New APRN - DIE BAKER)0948 (MAR Hold - Provider: Mar Autohold - Reason: Unreviewed Transfer Orders)0948 (MAR Unhold - Provider: Automatic Transfer Provider)1554 (Stopped - Provider: Tommy Juarez RN) 0.9 % sodium chloride infusion IntraVENous, at 75 mL/hr, CONTINUOUS, Starting on Thu04/26/25 at 1030, For 2 hours, Recovery(Cath) 0835 (New Bag - Prov ider: Chantelle Cortez, OMAR)1553 (Stopped - Provider: Tommy Juarez RN)1604 (Stopped - Provider: Chantelle Cortez, OMAR) lactated ringers infusion IntraVENous, at 125 mL/hr, CONTINUOUS, Starting on Thu04/26/25 at 1045, PACU only 1045 (Due) PRN Medication Order 04/24/2025 04/25/2025 04/26/2025 0.9 % sodium chloride infusion IntraVENous, at 5-250 mL/hr, PRN, if patient receiving piggyback infusions and maintenance fluids are not ordered, Starting on Thu04/26/25 at 1004, For piggyback infusion, administer at same rate as piggyback for a total of 25 mL. Enter 25 mL into dose field and piggyback rate into rate field of order. If piggyback is infusing at a rate less than 100 mL/hr, enter 25 mL into dose field and 100 mL/hr into rate field of order., Recovery(Cath) fentaNYL (SUBLIMAZE) injection 25 mcg 25 mcg, IntraVENous, EVERY 10 MIN PRN, 3 doses, Starting on Thu04/26/25 at 1027, Until Discontinued, Pain Moderate (4-6) OR per patient request for pain score (7-10), Pain Severe (7-10), For Phase I. If Phase II oral narcotics have been administered in the last 60 minutes, do not administer IV narcotics unless specifically approved by provider., PACU only 1146 (Given - Provid er: Chantelle Cortez, RN)1219 (Given - Provider: Chantelle Cortez RN) iopamidol (ISOVUE-370) 76 % injection (CANCELED) PRN, Starting on Thu04/26/25 at 0928, Until Thu04/26/25 at 0935, Intra-procedure(Cath) 0928 (Given - Provid er: Kendra Herrera MD) labetalol (NORMODYNE;TRANDATE) injection 10 mg 10 mg, IntraVENous, EVERY 15 MIN PRN, 2 doses, Starting on Thu04/26/25 at 1027, Until Discontinued, High Blood Pressure, for SBP greater than 180 mmHg for 2 consecutive measurements taken from different sites., Inform provider if SBP is still greater than 180 mmHg, 10 minutes after second antihypertensive dose is administered., PACU only lidocaine 1 % injection (CANCELED) IntraDERmal, PRN, Starting on Thu04/26/25 at 0829, Until Thu04/26/25 at 0935, Intra-procedure(Cath) 0829 (Given - Provid er: Kendra Herrera MD - Comment: right) metoclopramide (REGLAN) injection 10 mg 10 mg, IntraVENous, ONCE PRN, 1 dose, Starting on Thu04/26/25 at 1027, Until Discontinued, Nausea, Initial antiemetic therapy., PACU only naloxone 0.4 mg in 10 mL sodium chloride syringe IntraVENous, PRN, Opioid Reversal, Starting on Thu04/26/25 at 1027, PRN if respiratory rate is less than 6/min and patient is difficult to arouse then notify physician STAT. Mix 9 mL of sodium chloride 0.9% with 0.4 mg (1 mL) of naloxone (NARCAN) in 10 mL syringe. (Note: dilution is 0.04 mg/mL) Give 0.08 mg (2 mL of special dilution), slow IV push, repeat up to 0.4 mg (10 mL) or until patient is responsive to physical stimulation and respiratory rate is equal to or greater than 6 breaths/min. Continue to observe, if no response within 3 minutes of administration of 0.4 mg (10 mL) total, repeat dose (0.4 mg as administered previously). Concentration 0.04 mg/mL, PACU only ondansetron (ZOFRAN) injection 4 mg(Linked Group 1) 4 mg, IntraVENous, EVERY 6 HOURS PRN, Starting on Thu04/26/25 at 1004, Until Discontinued, Nausea, Vomiting, Administer if oral route cannot be used., Recovery(Cath) ondansetron (ZOFRAN-ODT) disintegrating tablet 4 mg(Linked Group 1) 4 mg, Oral, EVERY 8 HOURS PRN, Starting on Thu04/26/25 at 1004, Until Discontinued, Nausea, Vomiting, Recovery(Cath) prochlorperazine (COMPAZINE) injection 5 mg 5 mg, IntraVENous, ONCE PRN, 1 dose, Starting on Thu04/26/25 at 1027, Until Discontinued, Nausea, Secondary antiemetic therapy., PACU only sodium chloride flush 0.9 % injection 5-40 mL 5-40 mL, IntraVENous, PRN, Starting on Thu04/26/25 at 1004, Until Discontinued, Line Care, After every IV line use, For Line Patency: Peripheral IV = 5 mL; Midline or Central Line = 10 mL/lumen. If following IV push medication, administer flush at same rate as the IV push. Flush volume is determined by type of infusion therapy being given. For non-viscous solutions use: Peripheral IV = 5 mL Midline or Central Line = 10 mL/lumen For viscous solutions (i.e. blood components, parenteral nutrition, contrast media, or after obtaining blood sample) use: Peripheral IV = 10 mL Midline or Central Line = 20 mL/lumen, Recovery(Cath) Linked Groups Order Group 1: ondansetron (ZOFRAN-ODT) disintegrating tablet 4 mgJump to med 4 mg, Oral, EVERY 8 HOURS PRN, Starting on Thu04/26/25 at 1004, Until Discontinued, Nausea, Vomiting, Recovery(Cath) Or ondansetron (ZOFRAN) injection 4 mgJump to med 4 mg, IntraVENous, EVERY 6 HOURS PRN, Starting on Thu04/26/25 at 1004, Until Discontinued, Nausea, Vomiting, Administer if oral route cannot be used., Recovery(Cath) FOR RECORDS PERTAINING TO PATIENTS WHO ARE OR HAVE BEEN ENROLLED IN A CHEMICAL DEPENDENCY/SUBSTANCEABUSE PROGRAM, SOME INFORMATION MAY BE OMITTED. This clinical summary was aggregated from multiple sources. Caution should be exercised in using it in the provision of clinical care. This summary normalizes information from multiple sources, and as a consequence, information in this document may materially change the coding, format and clinical context of patient data. In addition, data may be omitted in some cases. CLINICAL DECISIONS SHOULD BE BASED ON THE PRIMARY CLINICAL RECORDS. [facility] [facility]. provides no warranty or guarantee of the accuracy or completeness of information in this document.
== END 2025-05-30 13:39 | disposition home or self-care (01) ==
LOC: WC 13:38
PROVIDERS: PCP Family Medicine; Visit Provider Physician Assistant
DX: S81.011D Laceration without foreign body, right knee, subsequent encounter (principal)
CPT/HCPCS: G0463

== ENCOUNTER 2025-06-15 13:04 | Outpatient (OUT) | payer MEDICARE, OTHER, SELFPAY ==
--- OUTSIDE RECORDS SUMMARY | 2025-06-12 06:45 | XMS_ITS ---
Author Organization [facility] Address [address] [place] [address] Care Team Providers Care H[employer] Principal Name Role Phone rosita singh Primary Care Provider AMEYA BENITEZ [phone] REASON FOR VISIT wound care Encounters Encounter Location Date Provider Diagnosis [facility] [address] [place] [address] 06/12/2025 AMEYA BENITEZ Plan Of Treatment No Information Progress Notes * Nahomy LAMBERT ADOB: (84 yo F)Acc No.[id number]:06/12/2025 Patient:?Nahomy Lambert :?AMEYA BENITEZ MDDOB:1940???Age:84 Y???Sex: FemaleDate:06/12/2025Phone:[phone]:[address] [facility], [place], [place]Axf:rosita Pardo Data:Consent to receive voicemail/text messages? : YES Subjective: * Chief Complaints: * W ound care * Electronic signature of AMEYA BENITEZ MD on 06/15/2025 at 01:07 PM EDTSign off status: Pending * Provider: Newton BENITEZ MD Date: 1 Generated for Printing/Faxing/eTransmitting on:?06/15/2025 01:07 PM EDT
--- OUTSIDE RECORDS SUMMARY | 2025-06-13 12:10 | XMS_ITS | Continuity of Care Document ---
Author Organization [facility] Address [address] [place] [address] Phone Care Team Providers Care Ampoule Sealer Name Role Phone Douglas Will MD Primary Care Provider Atilio Wade MD Attending Provider Douglas Will MD Attending Provider Care Teams Patient Care Team Team Status: Active Member Role/Relationship Status Dates Douglas Will MD Primary Care Provider Active Visit Care Team Team Status: Inactive Member Role/Relationship Status Dates Douglas Will MD Primary Care Provider Active S tart: May 10, 2025 End: May 10Cb Conde ProviderActiveStart: May 10, 2025 End: May 10, 2025 Visit Care Team Team Status: Inactive Member Role/Relationship Status Dates Douglas Will MD Primary Care Provider Active S tart: May 24, 2025 End: May 24, 2025Cb Neal ProviderActiveStart: May 24, 2025 End: May 24, 2025 Patient Care Team Team Status: Inactive Member Role/Relationship Status Dates Douglas Will MD Primary Care Provider Active S tart: June 13, 2025 End: June 13, 2025Cb Neal ProviderActiveStart: June 13, 2025 End: June 13, 2025 Chief Complaint and Reason for Visit Chief Complaint Admit Date esophageal stricture/REFER April 1:25pm Established Patient May 24, 2025 1: 20pm Purple Swollen Rt Leg June 13, 2025 3:06pm Reason for Visit Admit Date Dysphagia May [...] Allergy Mild Unknown Reaction Octob er 2024 3:48pm Yes Active cobalt Allergy Unknown Unknown Reaction June 13, 2025 3:48pm Yes Active codeine Allergy Unknown Unknown Reaction June 13, 2025 3:48pm Yes Active gold Au 198 Allergy Unknown Unknown Reaction June 13, 2025 3:48pm Yes Active latex Allergy Unknown Hives June 13, 2025 3:48pm Yes Active nickel Allergy Unknown Unknown Reaction June 13, 2025 3:48pm Yes Active Social History Smoking Status Status Start Date End Date Date of Observa tion Ex-smoker (finding) May 10, 2025 1:39pm Observation Status Observation Response Date of Response Legal Sex Female (finding) Sex Assigned At BirthFemaleDecember 1939 Family History Relationship Condition Age at Onset Recorded Date/T leonel brother Unknown fatherFamily history of other conditionUnknownDeceasedUnknownfamily member Diabetes mellitusUnknownHypertensionUnknownmotherFamily history of colon cancer UnknownMalignant neoplasmUnknownHypertensionUnknownDeceasedUnknown Problems Active Problems Problem Diagnosis/Recorded Date Onset Date Stat us Unsteadiness on feet November 29, 2024 7:00pm Unknown Active Vitiligo November 29, 2024 7:00pm Unknown Acti ve Methylenetetrahydrofolate re ductase deficiency November 29, 2024 7:00pm Unknown Active Methylenetetrahydrofolate re ductase deficiency November 29, 2024 7:03pm Unknown Active H/O Clostridium difficile infection November 29, 2024 7 :00pm Unknown Active Anemia due to stage 3b chron ic kidney disease May 24, 2025 2:01pm Unknown Active CARISA (obstructive sleep apnea) November 29, 2024 7:00pm Unknown Active History of esophagomyotomy November 29, 2024 7:03pm Unk nown Active 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 manager 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 November 29, 2024 7:00 pm Unknown Active Primary osteoarthritis of right knee November 29, 2024 7:00pm Unknown Active Complex regional pain syndro me of right lower extremity November 29, 2024 7:00pm Unknown Active Presence of right artificial knee joint November 29 7:00pm Unknown Active Acute respiratory failure with hypoxia November 29 7:03pm Unknown Active CTS (carpal tunnel syndrome) November 29, 2024 7:00pm U nknown Active Sacroiliac inflammation November 29, 2024 7:00pm Unknow n Active Hx of phlebitis November 29, 2024 7:00pm Unknown A ctive Family history of colon cancer November 29, 2024 7:00pm Unknown Active History of cardiac cath November 29, 2024 7:03pm Unknow n Active Artificial knee joint present November 29, 2024 7:03pm Unknown Active Actinic keratoses November 29, 2024 7:03pm Unknown Active Stented coronary artery November 29, 2024 7:00pm Unknow n Active Dyspnea on exertion November 29, 2024 7:00pm Unknown Active Osteoarthritis of knees, bilateral November 29, 2024 7: 00pm Unknown Active Chronic rhinitis November 29, 2024 7:00pm Unknown Active Cellulitis of skin November 29, 2024 7:00pm Unknown Active Pleuritic chest pain November 29, 2024 7:00pm Unknown Active Dizziness November 29, 2024 7:00pm Unknown Acti ve Centrilobular emphysema November 29, 2024 7:00pm Unknow n Active Acute kidney failure, unspecified November 29, 2024 7:0 3pm Unknown Active Diverticular disease November 29, 2024 7:00pm Unknown Active Diverticulosis November 29, 2024 7:00pm Unknown Ac tive Orthostatic hypotension May 24, 2025 1:58pm Unkno wn Active Coronary artery disease November 29, 2024 7:00pm Unknow n Active Increased thirst November 29, 2024 7:00pm Unknown Active Dysautonomia orthostatic hyp otension syndrome November 29, 2024 7:00pm Unknown Active History of electroconvulsive therapy November 29, 2024 7:00pm Unknown Active Dysphagia May 10, 2025 1:47pm Unknown Active Fibromyalgia November 29, 2024 7:00pm Unknown Acti ve Migraine headache November 29, 2024 7:00pm Unknown Active History of inferior vena cav al filter placement November 29, 2024 7:00pm Unknown Active Mixed hyperlipidemia November 29, 2024 7:00pm Unknown Active Angina of effort November 29, 2024 7:03pm Unknown Active Supplemental oxygen dependent November 29, 2024 7:00pm Unknown Active Hypercoagulable state, secondary November 29, 2024 7:00 pm Unknown Active Chronic kidney disease, unspecified November 29, 2024 7 :00pm Unknown Active 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 manager (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) use of antithrombotics/antiplatelets November 29, 2024 7:00pm Unknown Active Pulmonary nodule November 29, 2024 7:00pm Unknown Active Lumbago with sciatica, left side November 29, 2024 7:00 pm Unknown Active Osteoarthritis November 29, 2024 7:00pm Unknown Ac tive Physical deconditioning November 29, 2024 7:00pm Unknow n Active Elevated hemoglobin A1c November 29, 2024 7:00pm Unknow n Active Other chronic pain November 29, 2024 7:00pm Unknown Active Abnormal cardiovascular stress test November 29, 2024 7 :03pm Unknown Active Respiratory failure November 29, 2024 7:00pm Unknown Active Restless leg November 29, 2024 7:00pm Unknown Acti ve Vasomotor rhinitis November 29, 2024 7:00pm Unknown Active Syncope and collapse November 29, 2024 7:00pm Unknown Active Telangiectasia November 29, 2024 7:00pm Unknown Ac tive Multiple falls November 29, 2024 7:00pm Unknown Ac tive Ground glass opacity present on imaging of lung November 29, 2024 7:00pm Unknown Active Schatzki's ring November 29, 2024 7:00pm Unknown A ctive MDD (major depressive disord er), recurrent episode May 24, 2025 1:56pm Unknown Active Seasonal allergic rhinitis d ue to pollen November 29, 2024 7:00pm Unknown Active Despondency November 29, 2024 7:00pm Unknown Acti ve BMI 32.0-32.9,adult November 29, 2024 7:03pm Unknown Active Chronotropic incompetence wi th autonomic dysfunction November 29, 2024 7:00pm Unknown Active COPD (chronic obstructive pu lmonary disease) April 20, 2023 5:21pm Unknown Active CPAP (continuous positive ai rway pressure) dependence November 29, 2024 7:00pm Unknown Active Uses walker November 29, 2024 7:00pm Unknown Acti ve Balance problem November 29, 2024 7:03pm Unknown A ctive History of pulmonary embolism November 29, 2024 7:00pm Unknown Active Rosacea November 29, 2024 7:00pm Unknown Acti ve Esophageal stricture May 10, 2025 1:26pm Unkno wn Active Dyskinesia of esophagus November 29, 2024 7:00pm Unknow n Active Allergic rhinitis November 29, 2024 7:03pm Unknown Active Chronic diastolic CHF (conge stive heart failure) November 29, 2024 7:00pm Unknown Active Difficulty walking November 29, 2024 7:00pm Unknown Active Hiatal hernia November 29, 2024 6:50pm Unknown Act patience Asthma November 29, 2024 7:03pm Unknown Acti ve Inactive/Resolved Problems Problem Diagnosis/Recorded Date Onset Date Stat us Depression November 29, 2024 7:00pm Unknown Reso lved Noninfected skin tear of leg April 20, 2023 6:20p m Unknown Resolved Orthostatic hypertension November 29, 2024 7:00pm Unkno wn Resolved COPD exacerbation November 29, 2024 7:00pm Unknown Resolved Medications Medication Status Dose Units Route Directions Qty Days Refills S tart Date Stop Date End Date Reason(s) Instructions Adherence Celecoxib 200 mg capsule Active 200 MG PO Twice d aily 180 3Oct2024 11:05amComplies with drug therapyClopidogrel 75 mg tablet Udpxys21BYZKKmamo143Ifvrqko 2024 11:06amComplies with drug therapy Levothyroxine 100 mcg kixamgEuukbf336GJPYLZymmb268Bodiwww 2024 11:07am Complies with drug therapyTrazodone 150 mg jyobdoQwazqc196DESWZfeaext893Eadmlcs 2024 3:51pmComplies with drug therapyMetoprolol Succinate 50 mg tablet extended release 24 ddOumjjgpfdeea28UHEFOoapuXafomzabk 2022 12:00amApril 2024 6:46pmWarfarin 7.5 mg tabletDiscontinued7.5MGPOAs DirectedSeptember 2022 12:00amApril 2024 6:37pmHydralazine 25 mg jhfrfsEgexutmudpan30UW PODailySeptember 2022 12:00amSeptember 2024 1:35pmClopidogrel 75 mg mehnfuQymofzpazqjz44XSBUPuqpzNscrhtnbr 2022 12:00amOctober 2024 11:07amAmlodipine 5 mg tdxoeaHzuyyinqbink2AKPBTcyfsWsrbgpazd 2022 12:00am November 29, 2024 6:44pmLevothyroxine 100 mcg opozybJxiapczqdvyz891ZMVULRdpbq April 20, 2023 12:00amOctober 2024 11:07amPantoprazole 40 mg Tablet,Delayed Release (Dr/Ec)Ajmtilqoxdlk64IOYJHobhwKoryfspnl 2022 12:00am May 10, 2025 1:35pmTrazodone 150 mg nzvaxiAgiwfzgetinl367LFKTUgodadu April 20, 2023 12:00amOctober 2024 3:52pmMontelukast 10 mg tablet Wfjkkk67MLGJWoyedTnpbexhdp 2022 12:00amComplies with drug therapyCarbidopa- Levodopa 25-100 mg igwkgxVwdsubusvdse1FNMBOWjhsuvbLflqsqyzb 2022 12:00am May 10, 2025 1:33pmFluticasone Propionate 50 mcg/actuation spray,gvrearpadjWmxnecxyyrsc1KLLMAIBBNVCGKCRBwnqyGhgovynyz 2022 12:00am May 10, 2025 1:34pmFludrocortisone 0.1 mg tabletDiscontinued0.1MGPODaily April 20, 2023 12:00amSeptember 2024 1:38pm Lsbzhhlqqvu-Auibamkbd-Lxxvsdur (Trelegy Ellipta) 100-62.5-25 mcg blister with dwbrrzXjdnla9RJBDBZNWWBXVOAausmRrirttkau 2022 12:00amComplies with drug therapyFludrocortisone 0.1 mg tabletActive0.2MGPODailySept2024 1:33pmComplies with drug therapyFamotidine 40 mg qorlzrZlirly33EQSUNemap May 10, 2025 12:00amComplies with drug therapyMetoprolol Succinate 100 mg tablet extended release 24 afBxuaey303SCNEGgiljAdcvtuqen 24th, 2025 12:00am Complies with drug therapyAlbuterol Sulfate (Ventolin Hfa) 90 mcg/actuation HFA aerosol inhalerActiveINHALATIONSeptember 2024 12:00amComplies with drug therapyRoflumilast 500 mcg cinxfjWllmbf506TVFOMQssgfCojlnycdt 2024 12:00am Complies with drug therapyCephalexin 500 mg woqfsujGmkrzvfsmwfc511VGZWE4G7322 November 29, 2024 12:00amSeptember 2024 1:33pmApixaban (Eliquis) 5 mg tabletDiscontinued2.5MGPOTwice dailyApr2024 12:00amSeptember 2024 1:32pmRopinirole 1 mg asrrpqUliwuicpeczv5DQDKFmjuo at bedtimeApr2024 12:00amSeptember 2024 1:38pmOxybutynin Chloride 10 mg tablet extended release 24hrDiscontinuedMGPOApril 2024 12:00amOctober 2024 4:24pm Furosemide 20 mg vsmbjzKgyjotncorbf07HNOXXqitfGzfzl 15th, 2025 12:00amSeptember 2024 1:35pmAtorvastatin 40 mg wpivsnCzgasw40EHPSZtthz at bedtimeApr2024 12:00amComplies with drug therapyCelecoxib 200 mg capsuleDiscontinued 200MGPOTwice dailyApr2024 12:00amOctober 2024 11:07amClonidine Hcl 0.2 mg tabletDiscontinued0.2MGPODailyApril 2024 12:00amOctober 2024 4:24pmAmlodipine 10 mg ilzxilYacwhpzoybrt24VURXGtprlKhmqa 2024 12:00am May 10, 2025 1:32pmOlmesartan 40 mg izoygcDtegclxnvmmr94ZIBHVtijdRcdgx 2024 12:00amSept2024 1:35pmRopinirole 1 mg vblmelMigxea7EGST Daily at bedtimeSeptember 2024 1:35pmComplies with drug therapyClonidine Hcl 0.2 mg tabletActive0.2MGPOThree times daily as needed for hypertensive emergencyOctober 2024 4:18pmTake one tablet as needed for systolic BP greater than or equal to 170, up to three times dailyComplies with drug therapy Oxybutynin Chloride 10 mg tablet extended release 40xyNejnlw98PWAPSbruhDtxrqbt 7th, 2025 4:23pmComplies with drug therapyOmeprazole 40 mg capsule,delayed release(DR/EC)Zejfzf60GWRZLgfziDdvzvwx 7th, 2025 12:00amComplies with drug therapyMidodrine 5 mg fdmndlCovcbyfdjutn5RJBFUodbf dailyOct2024 12:00amOct2024 2:06pmdo not give last dose of day after 6PM or within 4 hrs of bedtimeHydralazine 25 mg gqdxjeRqyptjthgyir11RLGKWibiz dailyOct2024 12:00amOct2024 1:39pmFerrous Sulfate 325 mg (65 mg iron) rtzwfrBwjgtj142GVODSvgko times dailyOctober 2024 12:00amComplies with drug therapyLosartan 25 mg nxaijjObgriqdelsgn65KQSZHkshlEedijuh 7th, 2025 12:00am May 24, 2025 1:39pmFurosemide 20 mg fliwijPqbwhmvshgxy97MTFJHmtyhGyqvptl 7th, 2025 12:00amOct2024 1:38pmCarbidopa-Levodopa (Sinemet) 25-100 mg kecakjZzgbqldxikqf8FWYJAWw Directed as neededOctober 2024 12:00amOct2024 1:37pmOne tablet as needed two times a weekMidodrine 5 mg tabletActive 5MGPOThree times pkodw975Utuwnlx 8th, 2025 2:04pmdo not give last dose of day after 6PM or within 4 hrs of bedtimeComplies with drug therapyDoxycycline Hyclate 100 mg csrtlyTlauko864EBOUIgryn nahvt180Pfsfvav 28th, 2025 12:00am Complies with drug therapy Immunizations Immunization Event Date Not Given Reason Dose Number Acute Care Physical Therapist Lot Number Reason(s) Given Vaccine Information Statement (VIS) Detail Administration Location influenza, unspecified formulation April influenza, unspecified formulationOct2017influenza, [facility] 2018Pneumococcal Polysacc. Vaccine, 23 valentJanuary 1998Pneumococcal Polysacc. Vaccine, 23 valentJanuary 2007P[facility] Vital Signs Vital Reading Result Reference Range Collection Date/Time Height 61.5 [in_i] May 10, 2025 1:51ywEtgagk29.82 kgSept2024 1:30pmBMI (Body Mass Index)16.7 kg/m2Mxkqdktgr 2024 1:31ykZmzuob57 [in_i]May 24, 2025 1:56guMspeax21.27 kgProm[facility] 2024 1:35pmBody Qvckovtsjze35.6 [degF] 97.6-99.0[facility] 2024 1:35pmHeart Rate75 /xsx76-269Vnhrdtv 2024 1:35pm Respiratory rate24 /joe00-14Tbhnzyg 2024 1:35pmOxygen saturation by Pulse ukhsvlke78 %95-100[facility] 2024 1:35pmBP Qctzgmef077 mm[Hg]100-140[facility] 2024 1:35pmBP Rcesodtzr55 mm[Hg]60-100[facility] 2024 1:35pmBMI (Body Mass Index)16.1 kg/z6Gntqgkl 2024 1:56yxAuiqel775 [in_i]June 13, 2025 3:09ydJyykpe64.17 kgOctdeaconess hospital 2024 3:48pmBody Dwhdebgeohq88.1 [degF] 97.6-99.0[facility] 2024 3:48pmHeart Rate51 /hni43-002Mriggmd 2024 3:48pmRespiratory rate24 /okx85-88Nlneenq 2024 3:48pmOxygen saturation by Pulse ibetoasr43 %95-100[facility] 2024 3:48pmBMI (Body Mass Index)0.1 kg/m2 June 13, 2025 3:48pm Advance Directives Advance Directive Response Recorded Date/ Time Advance Directives No December 23, 2021 4:18pm Insurance Providers Guarantor Nahomy Jacob Wymangustavo Address [address] [facility] [id number] Info.Home Phone: Payer Group Member ID Coverage Type Subscriber Relationship to Subscriber Effective Date Expiration Date Medicare [id number] Weiker Id: [id number] [address] [facility] [address] Home Phone: [employer] [id number] Jacob Marquez Id: [id number] [address] [facility] [address] Home Phone: Self Encounters Encounter Location(s) Arrival/Admit Date Discharge/Departure Date Discharge/Departure Disposition Provider(s) Departed Physician/ Provider Office Visit -[facility] May 10, 2025 1:25pm May 10, 2025 1:53pm Discharged to home care or self care (routine discharge) Atilio Wade MD Departed Physician/ Provider Office Visit -[facility] [place] May 24, 2025 1:20pm May 24, 2025 2:15pm Discharged to home care or self care (routine discharge) Douglas Will MD Departed Physician/ Provider Office Visit -[facility] [place] June 13, 2025 3:06pm June 13, 2025 4:09pm Discharged to home care or self care (routine discharge) Douglas Will MD Recent Diagnosis Onset Date [...] Onset Date Resolution Status Admit Date Dysphagia acuteSeptember 2024 1:25pmEsophageal strictureacuteSeptember 2024 1:25pmAnemia due to stage 3b chronic kidney diseaseacuteOctober 2024 1:20pm Chronic diastolic CHF (congestive heart failure)acuteOctober 2024 1:20pm COPD (chronic obstructive pulmonary disease)acuteOctober 2024 1:20pm Coronary artery diseaseacuteOct2024 1:20pmMDD (major depressive disorder), recurrent episodeacuteOct2024 1:20pmOrthostatic hypotension [facility] Plan of Treatment [facility] 1:54pmThis is an 84-year-old female with a longstanding history of swallowing problems. In concern she may actually have a motility disorder as her chart history lists a history of esophagomyotomy. She also has severe cardiopulmonary comorbid conditions. She follows with [facility] in [place]. We will do a records release from her cardiology notes, additionally records release [facility] regarding her dysphagia. Follow-up pending obtaining outside records. Author Douglas Will [facility] 2024 2:54pmContinued SOB with exertion and continue trelegy. Use albuterol PRN. Follow with pulmonology. BP low and very lightheaded. Increase midodrin to TID. Follow with cardiology. No edema and continue medication. Follow with cardiology. No chest pain and continue medication. Follow with cardiology. Continued symptoms and follow with hematology. Occasional symptoms but tolerable and continue medication. Future Tests Future scheduled test information is unavailable Pending Tests Pending diagnostic test information is unavailable Future Visits Future appointment information is unavailable Future Procedures Future procedure information is unavailable Future Medications Future medication information is unavailable Patient Instructions Patient instructions are unavailable
--- OUTSIDE RECORDS SUMMARY | 2025-06-14 11:53 | XMS_ITS | Encounter Summary ---
Author Organization [employer] [facility] tem Address [facility] [id number] [address] 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 Procedures CT angiogram abdomen and pelvis Fadi Higgins MD [address] [place] [address] Phone: tel: fax: Referral IDStatusReasonStart DateExpiration DateVisits RequestedVisits [id number]/6/202510/6/202611 * Diagnostic Imaging (Routine) - ClosedSpecialtyDiagnoses / ProceduresReferred By ContactReferred To ContactRadiology Diagnoses 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 Procedures CT angiogram chest Fadi Higgins MD [address], [place] [address] Phone: tel: fax: Referral IDStatusReasonStart DateExpiration DateVisits RequestedVisits [id number]/6/202510/6/202611 Reason for Visit * Diagnostic Imaging (Routine) - ClosedSpecialtyDiagnoses / ProceduresReferred By ContactReferred To ContactRadiology Diagnoses 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 Procedures CT angiogram abdomen and pelvis Fadi Higgins MD [address], [address] [address] Phone: tel: fax: Referral IDStatusReasonStart DateExpiration DateVisits RequestedVisits [id number]/6/202510/6/202611 Encounter Details DateTypeDepartmentCare Team (Latest Contact Info)Xazhsfmqcjw63/29/2025 11:53 AM EDT - 06/14/2025 11:59 PM EDTHospital Encounter [facility] [address] [place] [id number] Fadi Higgins MD [address], [address] [address] 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CMS-HCC); Penetrating ulcer of aorta Discharge Disposition: Home Social History Tobacco UseTypesPacks/DayYears UsedDateSmoking Tobacco: [id number] - 1980Smokeless Tobacco: Never Comments:Smoked less in past Alcohol UseStandard Drinks/WeekCommentsNo0 (1 standard drink = 0.6 oz pure alcohol)[facility] UtilitiesAnswerDate RecordedIn the past 12 months has the [employer], oil, or water [employer] threatened to shut off services in your home?No 12/13/2024Social Connection and Isolation PanelAnswerDate RecordedIn a typical week, how many times do you talk on the phone with family, friends, or neighbors?More than three times a week05/21/2023Frequency of Social Gatherings with Friends and FamilyNot on file05/21/2023ttends Druze ServicesNot on file05/21/2023ctive Member of Clubs or OrganizationsNot on file05/21/2023 Attends Club or Organization MeetingsNot on file05/21/2023Marital StatusNot on file10/05/2023AUDIT-CAnswerDate RecordedQ1: How often do you have a drink containing alcohol?Never12/21/2023Q2: How many drinks containing alcohol do you have on a typical day when you are drinking?Patient does not drink12/21/2023Q3: How often do you have six or more drinks on one occasion?Never12/21/2023HQ-2 AnswerDate RecordedTotal Pqawd687FinFranciscan Health [facility] of Occupational Health - Occupational Stress QuestionnaireAnswerDate RecordedDo you feel stress - tense, restless, nervous, or anxious, or unable to sleep at night because your mind is troubled all the time - these days?Not at all05/21/2023RAPARE - TransportationAnswerDate RecordedIn the past 12 months, has lack of transportation kept you from medical appointments or from getting medications?No 12/13/2024In the past 12 months, has lack of transportation kept you from meetings, work, or from getting things needed for daily living?No12/13/2024 Housing InstabilityAnswerDate RecordedAre you worried or concerned that in the next two months you may not have stable housing that you own, rent or stay in as a part of a household?No12/13/2024hildcareAnswerDate RecordedChildcareUnknown 01/17/2019EmploymentAnswerDate JspprwuoXgjfdactfcHhexizn41/03/2019Hunger ScreeningAnswerDate RecordedWithin the past 12 months we worried whether our food would run out before we got money to buy more.Never True12/13/2024Within the past 12 months the food we bought just didn't last and we didn't have money to get more.Never True12/13/2024Purpose - LifeAnswerDate RecordedPurpose and direction in fqzgLfrzvuf03/11/2021CommentsNoSex and Gender Information ValueDate RecordedSex Assigned at BirthNot on fileLegal VcqOmiptw11/06/2015 11:22 AM EDTGender IdentityNot on fileSexual OrientationNot on filedocumented as of this encounter Medications at Time of Discharge MedicationSigDispense QuantityRefillsLast FilledStart DateEnd Date atorvastatin (LIPITOR) 40 mg tablet Take 1 tablet (40 mg total) by mouth nightly. 90 tablet 12/25/2023 celecoxib (CeleBREX) 200 mg capsule Indications:osteoarthritisTake 1 capsule (200 mg total) by mouth in the morning and 1 capsule (200 mg total) before bedtime. Indications: joint damage causing pain and loss of function.09/18/2021 cloNIDine (CATAPRES) 0.2 mg tablet Take 1 tablet (0.2 mg total) by mouth 3 (three) times a day as needed for high blood pressure. clopidogreL (PLAVIX) 75 mg tablet Indications:thrombosis prevention after PCITake 1 tablet (75 mg total) by mouth in the morning. Indications: blood clot prevention following percutaneous coronary intervention.12/09/2021 cyanocobalamin 1000 MCG tablet Take 1 tablet (1,000 mcg total) by mouth in the morning. 30 tablet 12/17/2024 ELIQUIS 5 mg tablet TAKE 1/2 (ONE-HALF) TABLET BY MOUTH IN THE MORNING AND 1/2 (ONE-HALF) AT BEDTIME 60 tablet 11/28/2024 fludrocortisone (FLORINEF) 0.1 mg tablet Take 2 tablets (0.2 mg total) by mouth in the morning.05/11/2024 softhfkwunr-rrlyaflpk-itpywduq (TRELEGY ELLIPTA) 100-62.5-25 mcg blister with device Inhale 1 puff once daily. 180 each levothyroxine (SYNTHROID, LEVOTHROID) 100 MCG tablet Take 1 tablet (100 mcg total) by mouth in the morning.03/18/2024 metoprolol succinate 100 mg capsule,sprinkle,ER 24hr Take 100 mg by mouth in the morning. montelukast (SINGULAIR) 10 mg tablet Take 1 tablet (10 mg total) by mouth nightly.12/19/2022 oxybutynin XL (DITROPAN-XL) 10 mg 24 hr tablet 07/03/2024 rOPINIRole (REQUIP) 1 mg tablet Take 1 tablet (1 mg total) by mouth. 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 Technique: CT angiography of the ??abdomen, and pelvis was performed using pre- contrast imaging andthin-section imaging during the arterial phase of enhancement. Delayed post-contrast images were also obtained Contrast: 100 mL Omnipaque 350. Comparison: CTA abdomen and pelvis 07/01/2024 and 12/20/2023. POST PROCESSIND advanced post-processing was performed using an independent workstation utilizing a combination of MIP and MPR techniques to better evaluate anatomy and disease process. ??3D rendering was performed. All CT scans at this facility use dose modulation, iterative reconstruction, and/or weight based dosing when appropriate to reduce radiation dose to as low as reasonably achievable. FINDINGS: Aorta: Patent. The previously noted penetrating aortic ulcer/dissection at the renal artery origin is no longer visualized. Partially visualized thoracic aortic endograft, better evaluated on concurrently performed CTA chest. Moderate atherosclerotic plaque. Aortic diameter at the celiac origin: 2.9 cm Aortic diameter at the renal artery origin: 2.4 cm Aortic diameter at the bifurcation: 2.7 cm Celiac artery: Patent. Moderate narrowing of the ostium secondary to atherosclerotic calcification and configuration. ??Accessory right hepatic artery arising from the celiac axis noted. Superior mesenteric artery: Patent. Mild narrowing of the ostium secondary to atherosclerotic calcification. Inferior mesenteric artery: Patent Renal arteries: Patent. Mild narrowing of the ostia secondary to atherosclerotic calcification bilaterally. Luminal irregularity of the right renal artery (614, 45). Common iliac arteries: Patent with moderate atherosclerotic plaque. External iliac arteries: Patent with mild atherosclerotic plaque. Internal iliac arteries: Patent with moderate atherosclerotic plaque bilaterally. Mild ectasia of the right proximal internal iliac artery measuring 8mm. 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 Additional findings: * ??Chest findings reported separately. * ??Similar moderate intrahepatic and extrahepatic biliary ductal dilatation, greater than expectedfor postcholecystectomy reservoir effect. * ??Redemonstration of multiple cystic pancreatic lesions in the head, neck, and body, largest of which measures up to 1.3 cm. Most of these lesions appear contiguous with the nondilated main pancreatic duct. * ??The spleen, adrenal glands, and urinary tract demonstrate no acute abnormality. Stable simple left renal cyst and 1.5 cm right renal lesion, statistically likely to represent a hemorrhagic or proteinaceous cyst (9, 67). * ??Normal caliber large and small bowel. No free intraperitoneal air or fluid. Diffuse mesenteric congestion. Moderate anasarca. Small hiatal hernia. Postoperative changes at the rectosigmoid junction, compatible with prior partial colectomy. * ??Unchanged position of IVC filter. The portal, splenic, superior mesenteric veins appear patent.No enlarged retroperitoneal or mesenteric lymph nodes by CT size criteria. Hysterectomy. No acute osseous abnormality. Similar chronic compression deformities of T12. IMPRESSION: 1. ??No evidence of aortic aneurysm or dissection. The penetrating atherosclerotic ulcer/dissectionat the renal artery origin previously noted on 12/20/2023 has resolved. Partially visualized descending thoracic aortic endograft better evaluated on concurrently performed CTA chest. 2. 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 3. ??Diffuse mesenteric congestion and moderate anasarca, likely representing fluid overload. 4. ??Similar moderate to severe intra-/extrahepatic biliary ductal dilatation, greater than expected for postcholecystectomy reservoir effect. Correlation with laboratory values and clinical symptomsis recommended. 5. ??Multiple incidental pancreatic cystic lesions, the largest one measuring 1.3 cm. Recommendations are based on the largest cyst. Recommend imaging follow- up with contrast-enhanced MRI or pancreas-protocol CT every 2 years for 4 years, depending on patient co-morbidities and preferences. Lizzy MCCORMACK, et al. Management of Incidental Pancreatic Cysts: A White Paper of the ACR Incidental Findings Committee. J Am Wei Radiol 2017;14:911-923. Approved by Resident Lewis Ignacio MD ??on 06/15/2025 7:43 AM I, Ben Finnegan MD have personally reviewed the image(s) and agree with and/or edited the report Finalized by Ben Finnegan MD on 06/15/2025 8:44 AM Procedure Note Ben Finnegan MD - 06/15/2025 CTA ABDOMEN AND PELVIS History: Aortic dissection, prior aortic aneurysm repair. Technique: CT angiography of the abdomen, and pelvis was performed usingpre- contrast imaging and thin-section imaging during the arterial phase of enhancement. Delayed post-contrast images were also obtained Contrast: 100 mL Omnipaque 350. Comparison: CTA abdomen and pelvis 07/01/2024 and 12/20/2023. POST PROCESSIND advanced post-processing was performed using anindependent workstation utilizing a combination of MIP and MPR techniquesto better evaluate anatomy and disease process. 3D rendering wasperformed. All CT scans at this facility use dose modulation, iterativereconstruction, and/or weight based dosing when appropriate to reduceradiation dose to as low as reasonably achievable. FINDINGS: Aorta: Patent. The previously noted penetrating aortic ulcer/dissection atthe renal artery origin is no longer visualized. Partially visualizedthoracic aortic endograft, better evaluated on concurrently performed CTAchest. Moderate atherosclerotic plaque. Aortic diameter at the celiac origin: 2.9 cm Aortic diameter at the renal artery origin: 2.4 cm Aortic diameter at the bifurcation: 2.7 cm Celiac artery: Patent. Moderate narrowing of the ostium secondary to atherosclerotic calcification and configuration. Accessory right hepaticartery arising from the celiac axis noted. Superior mesenteric artery: Patent. Mild narrowing of the ostium secondaryto atherosclerotic calcification. Inferior mesenteric artery: Patent Renal arteries: Patent. Mild narrowing of the ostia secondary toatherosclerotic calcification bilaterally. Luminal irregularity of theright renal artery (614, 45). Common iliac arteries: Patent with moderate atherosclerotic plaque. External iliac arteries: Patent with mild atherosclerotic plaque. Internal iliac arteries: Patent with moderate atherosclerotic plaquebilaterally. Mild ectasia of the right proximal internal iliac arterymeasuring 8mm. 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 Additional findings: * Chest findings reported separately. * Similar moderate intrahepatic and extrahepatic biliary ductaldilatation, greater than expected for postcholecystectomy reservoireffect. * Redemonstration of multiple cystic pancreatic lesions in the head,neck, and body, largest of which measures up to 1.3 cm. Most of theselesions appear contiguous with the nondilated main pancreatic duct. * The spleen, adrenal glands, and urinary tract demonstrate no acute abnormality. Stable simple left renal cyst and 1.5 cm right renal lesion, statistically likely to represent a hemorrhagic or proteinaceous cyst (9,67). * Normal caliber large and small bowel. No free intraperitoneal air orfluid. Diffuse mesenteric congestion. Moderate anasarca. Small hiatalhernia. Postoperative changes at the rectosigmoid junction, compatiblewith prior partial colectomy. * Unchanged position of IVC filter. The portal, splenic, superiormesenteric veins appear patent. No enlarged retroperitoneal or mesentericlymph nodes by CT size criteria. Hysterectomy. No acute osseousabnormality. Similar chronic compression deformities of T12. IMPRESSION: 1. No evidence of aortic aneurysm or dissection. The penetratingatherosclerotic ulcer/dissection at the renal artery origin previouslynoted on 12/20/2023 has resolved. Partially visualized descending thoracicaortic endograft better evaluated on concurrently performed CTA chest. 2. 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 3. Diffuse mesenteric congestion and moderate anasarca, likelyrepresenting fluid overload. 4. Similar moderate to severe intra-/extrahepatic biliary ductaldilatation, greater than expected for postcholecystectomy reservoireffect. Correlation with laboratory values and clinical symptoms isrecommended. 5. Multiple incidental pancreatic cystic lesions, the largest onemeasuring 1.3 cm. Recommendations are based on the largest cyst. Recommendimaging follow-up with contrast-enhanced MRI or pancreas-protocol CT every2 years for 4 years, depending on patient co-morbidities andpreferences. Lizzy MCCORMACK, et al. Management of Incidental Pancreatic Cysts: A WhitePaper of the ACR Incidental Findings Committee. J Am Wei Kbmbis0043;14:911-923. Approved by Resident Lewis Ignacio MD on 06/15/2025 7:43 AM I, Ben Finengan MD have personally reviewed the image(s) and agreewith and/or edited the report Finalized by Ben Finnegan MD on 06/15/2025 8:44 AM Authorizing ProviderResult TypeResult StatusMohamed Melanie Higgins MDIMAnton CT ORDERABLES Final Result * CT angiogram chest (06/14/2025 2:09 PM EDT)Anatomical RegionLaterality ModalityLung, Body, Chest, Vascular, Body CoveraN/AComputed TomographySpecimen (Source)Anatomical Location / LateralityCollection Method / VolumeCollection TimeReceived Time06/14/2025 3:05 PM EDT Narrative 06/15/2025 9:[address] CTA CHEST HISTORY: Chronic dissection, prior abdominal aortic aneurysm. COMPARISON: CTA chest 12/09/2024 and 02/15/2020. ??CT chest without contrast 05/22/2021. PET/CT 01/23/2023. TECHNIQUE: Contiguous axial images are obtained of the Chest with 100 mL of Omnipaque 350 IV contrast. Coronal and sagittal reconstructions were performed and reviewed. Sagittal and coronal reformatted images with 3-D Maximum intensity projection reconstructions constructed under concurrent physician supervision on a separate workstation. ??Automatic exposure control was utilized. ??All CT scans at this facility use dose modulation, iterative reconstruction, and/or weight based dosing when appropriate to reduce radiation dose to as low as reasonably achievable. FINDINGS: LUNGS/PLEURA: The airways are patent. ??No pneumothorax. Moderate right, small left pleural effusions. ?? Stable 1.7 x 1.1 cm spiculated groundglass nodule in the right upper lobe (5, 204). ??This is similar to 12/09/2024, but mildly increased in conspicuity since 02/15/2020. Unchanged right upper lobe 5 mm groundglass nodule (series 6 image 337). ??Bibasilar subsegmental atelectasis and biapical pleural-parenchymal scarring. ??Moderate centrilobular emphysematous changes. HEART/VESSELS/MEDIASTINUM: Redemonstration of aortic endograft extending from the origin of the brachiocephalic trunk to the celiac origin. Proximal left subclavian stent appears patent and unchanged. Aortic measurements as follows: Aorta at the sinuses: 2.9 x 4.0 ??cm. Sinotubular junction: 3.0 x 3.5 ??cm. Mid ascending thoracic aorta: 3.4 x 3.5 ??cm. Midaortic arch: 2.6 x 3.0 ??cm. Mid descending thoracic aorta: 3.1 x 3.1 ??cm. Mild cardiomegaly. Moderate to large pericardial effusion. ??Dilatation of the pulmonary trunk up to 3.7 cm, nonspecific, but can be seen in the setting of pulmonary arterial hypertension. ??No filling defects of the main pulmonary arteries, lobar branches, or segmental branches to suggest emboli. ?? Heavy coronary artery calcifications, patient is status post coronary stenting. ?? No enlarged mediastinal or hilar lymph nodes. ??Cardiac pacing device within the left chest wall. Left atrial appendage closure device. LOWER NECK AND UPPER ABDOMEN: No enlarged supraclavicular or axillary lymph nodes. ??Small hiatal hernia. ?? The esophagus is mildly patulous and filled with debris. MUSCULOSKELETAL: No acute osseous abnormality. ??Multilevel degenerative changes of the thoracic spine. Similar chronic compression deformity of T12. IMPRESSION: * ??Stable thoracic aortic endograft without evidence of endoleak. * ??Moderate pericardial effusion. Moderate right and small left pleural effusions, new compared toprior * ??Unchanged groundglass pulmonary nodules. I, Ben Finnegan MD have personally reviewed the image(s) and agree with and/or edited the report Finalized by Ben Finnegan MD on 06/15/2025 9:07 AM Procedure Note Ben Finnegan MD - 06/15/2025 CT CTA CHEST HISTORY: Chronic dissection, prior abdominal aortic aneurysm. COMPARISON: CTA chest 12/09/2024 and 02/15/2020. CT chest without contrast 05/22/2021. PET/CT 01/23/2023. TECHNIQUE: Contiguous axial images are obtained of the Chest with 100 mLof Omnipaque 350 IV contrast. Coronal and sagittal reconstructions wereperformed and reviewed. Sagittal and coronal reformatted images with 3-DMaximum intensity projection reconstructions constructed under concurrent physician supervision on a separate workstation. Automatic exposurecontrol was utilized. All CT scans at this facility use dose modulation,iterative reconstruction, and/or weight based dosing when appropriate toreduce radiation dose to as low as reasonably achievable. FINDINGS: LUNGS/PLEURA: The airways are patent. No pneumothorax. Moderate right, small leftpleural effusions. Stable 1.7 x 1.1 cm spiculated groundglass nodule inthe right upper lobe (5, 204). This is similar to 12/09/2024, but mildlyincreased in conspicuity since 02/15/2020. Unchanged right upper lobe 5 mmgroundglass nodule (series 6 image 337). Bibasilar subsegmental atelectasis andbiapical pleural-parenchymal scarring. Moderate centrilobularemphysematous changes. HEART/VESSELS/MEDIASTINUM: Redemonstration of aortic endograft extending from the origin of the brachiocephalic trunk to the celiac origin. Proximal left subclavian stent appears patent and unchanged. Aortic measurements as follows: Aorta at the sinuses: 2.9 x 4.0 cm. Sinotubular junction: 3.0 x 3.5 cm. Mid ascending thoracic aorta: 3.4 x 3.5 cm. Midaortic arch: 2.6 x 3.0 cm. Mid descending thoracic aorta: 3.1 x 3.1 cm. Mild cardiomegaly. Moderate to large pericardial effusion. Dilatation ofthe pulmonary trunk up to 3.7 cm, nonspecific, but can be seen in thesetting of pulmonary arterial hypertension. No filling defects of themain pulmonary arteries, lobar branches, or segmental branches to suggestemboli. Heavy coronary artery calcifications, patient is status post coronarystenting. No enlarged mediastinal or hilar lymph nodes. Cardiac pacingdevice within the left chest wall. Left atrial appendage closure device. LOWER NECK AND UPPER ABDOMEN: No enlarged supraclavicular or axillary lymph nodes. Small hiatal hernia.The esophagus is mildly patulous and filled with debris. MUSCULOSKELETAL: No acute osseous abnormality. Multilevel degenerative changes of thethoracic spine. Similar chronic compression deformity of T12. IMPRESSION: * Stable thoracic aortic endograft without evidence of endoleak. * Moderate pericardial effusion. Moderate right and small left pleuraleffusions, new compared to prior * Unchanged groundglass pulmonary nodules. 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 documented in this encounter Administered Medications Medication OrderMAR ActionAction DateDoseRateSite iohexoL (OMNIPAQUE) 350 mg iodine/mL injection 100 mL 100 mL, intravenous, Once in imaging, contrast, Starting on Thu06/14/25 at 1158, For 1 dose, VESICANT (RED) Given06/14/2025 12:20 PM TEL703 mL sodium chloride 0.9 % flush 10 mL 10 mL, intravenous, As needed, line care, Starting on Thu06/14/25 at 1158 Given06/14/2025 12:19 PM EDT10 mL sodium chloride 0.9 % radiology injection 80 mL, intravenous, Once in imaging, pre/post contrast, Starting on Thu06/14/25 at 1158, For 1 dose Given06/14/2025 12:20 PM EDT80 mLdocumented in this encounter Additional Health Concerns AssessmentNoted TimePHQ-9 Depression Total Score: 10:24 AM EDT documented as of this encounter Care Teams Team MemberRelationshipSpecialtyStart DateEnd Date Douglas Will MD PCP - GeneralFamily Ejopxljw13/4/21documented as of this encounter
--- OUTSIDE RECORDS SUMMARY | 2025-06-15 13:07 | XMS_ITS | Patient Health Record ---
Author Organization [facility] Address [address] [place] [address] Care Team Providers Care Hired Hand Name Role Phone rosita singh Primary Care Provider JARED PETERS Unavailable [phone] AMEYA BENITEZ Unavailable [phone] Allergies Allergen (clinical drug ingredient) Drug/Non Drug Allergy documented on EMR Reaction Allergy Type Onset Date Status cobalt, Gold (uncoded)rashAllergyActiveTylenol/Codeine #3stomach upsetDrug AllergyActiveLatexlatexrashAllergyActivenickelNickelrashAllergyActive Reason For Referral No Information Medications Medication SIG (Take, Route, Frequency, Duration) Notes Start Date End Date Status Celecoxib 200 MG Capsule 1 capsule Orally TWICE a day ActiveFamotidine 40 MG Tablet1 tablet Orally twice a day (morning and bedtime) ActivehydrALAZINE HCl 25 MG Tablet1 tablet with food Orally every 4 hours as needed for sap over 180; Duration: 90 daysActiveClopidogrel Bisulfate 75 MG Tablet1 tablet Orally Once a dayActiveLevothyroxine Sodium 100 MCG Tablet1 tablet every morning on an empty stomach Orally Once a day; Duration: 90 days ActiveMetoprolol Succinate 100 MG Capsule ER 24 Hour Sprinkle1 capsule Orally Once a dayNot-TakingApixaban 5 MG Tablet1 tablet Orally Twice a day; Duration: 90 daysActiveMontelukast Sodium 10 MG TabletTake 1 tablet by mouth once daily for 90 days; Duration: 90ActiveAspirin 81 MG Tablet Delayed Release1 tablet Orally Once a dayActivetraZODone HCl 150 MG Tablet1 tablet at bedtime Orally Once a day; Duration: 90 daysActiveFludrocortisone Acetate 0.1 MG Tablet3 tablet Orally Once a dayActiveCoumadin 5 MG Tablet1 tablet M & F, 1 tablet 5 days Orally Once a dayActiveMetoprolol Succinate ER 100 MG Tablet Extended Release 24 Hour1 tablet Orally Once a day; Duration: 90 daysActiveGabapentin 300 MG Capsule 2 capsules Orally tid; Duration: 90 daysActivePantoprazole Sodium 40 MG Tablet Delayed Release1 tablet Orally in the morning and bed timeActiveDoxycycline Monohydrate 100 MG Capsule1 capsule Orally twice a dayActiveCarbidopa-Levodopa 25-100 MG Tablet1 tablet Orally AT NIGHT; Duration: 90 daysActiveFluticasone Propionate 50 MCG/ACT Suspension1 spray in each nostril Nasally Once a day; Duration: 90 daysActive Social History Social History Social HistorySocial InfoQuestionAnswerNotesAlcohol Screening:Did you have a drink containing alcohol in the past year?SeCqbbpk5YhcudvwjaghuufDjhirolg Additional DetailsCategorySocial InfoOptionsDetailsMigrated Social History Migrated Social History Household:(Household):Marital status: ;Tobacco Use:(Tobacco Use/Smoking):Are you a: former smoker , How long has it been since you last smoked?: > 10 years ; Social HistoryAlcohol:denies alcohol useTobacco Usenever smoked Problems Problem Type SNOMED Code ICD Code Onset Dates Problem Status W/U Status Risk Notes Problem Atherosclerosis of aorta (97172266) Ather osclerosis of aorta (I70.0) ActiveconfirmedProblemThrombophilia (282368778)Other thrombophilia (D68.69) ActiveconfirmedPt taking anticoagulant due AF and Pulmonary EmbolismProblem Hyperlipidemia (08132087)Other hyperlipidemia (E78.4)ActiveconfirmedProblem Hyperlipidemia (42234652)Hyperlipidemia, unspecified (E78.5)Activeconfirmed ProblemRestless legs syndrome (28000902)Restless legs syndrome (G25.81)Active confirmedProblemAtherosclerotic heart disease of [place] coronary artery without angina pectoris (422895112275322)Atherosclerotic heart disease of [place] coronary artery without angina pectoris (I25.10)ActiveconfirmedProblemSpinal enthesopathy (68200242)Spinal enthesopathy, 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)Active confirmedLigamentum flavum hypertrophy L3-L4 /// 08/21/2021 CT Lumbar Spine ProblemOveractive bladder (543395052)Overactive bladder (N32.81)Activeconfirmed ProblemLong-term 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 (118484841)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 (Z79.01)ActiveconfirmedProblemHistory of thromboembolism of vein (396702946)Personal history of other venous thrombosis and embolism (Z86.718)ActiveconfirmedProblemHypothyroidism (58974666)Hypothyroidism, unspecified (E03.9)ActiveconfirmedProblemEssential hypertension (74623476) Essential (primary) hypertension (I10)ActiveconfirmedProblemHypertensive heart failure (77480677)Hypertensive heart disease with heart failure (I11.0)Active confirmedAssociated with HF---Continue on Clopidogrel Bisulfate 75 MGProblem Chronic obstructive pulmonary disease (15477583)Chronic obstructive pulmonary disease, unspecified (J44.9)Pywztsmvrzeymav17/14/2023 Cardiology notes--Taking DalirespProblemSick sinus syndrome (66549576)Sick sinus syndrome (I49.5)Active lofyscanw48/14/2023 Cardiology notes--S/P PPM (permanent pacemaker) implanted in 2017ProblemInsomnia (236092644)Insomnia, unspecified type (G47.00)Active confirmedProblemPulmonary Embolism (46957994)Other pulmonary embolism without acute cor pulmonale, unspecified chronicity (I26.99)Inhjzfkwtemrugf11/14/2023 Cardiology note page 1/4 patent stent in LAD, on CoumadinProblemNon-smoker (9737303)Non-smoker (Z78.9)ActiveconfirmedProblemDiastolic heart failure (745880271)Diastolic congestive heart failure, unspecified HF chronicity (I50.30)ActiveconfirmedDiastolic dysfunction-Global EF 45-50%, E to A ratio reversal in ECHO 09/2021--- 11/10/2022 [facility]/Consult notesProblem Chronic atrial fibrillation (disorder) (932907484)Chronic atrial fibrillation, unspecified (I48.20)ActiveconfirmedPt in anti-platelets therapy --08/19/2017 Dr. Andrade notes--page 3/3PPaintsville [facility] Hospitalardiac pacemaker in situ (653276940)Cardiac pacemaker in situ (Z95.0)ActiveconfirmedProblemParkinson's disease (disorder) (28973649)Parkinson's disease, unspecified whether dyskinesia present, unspecified whether manifestations fluctuate (G20.A1)ActiveconfirmedTaking Carbidopa-LevodopaProblemHeart failure (22248214)Congestive heart failure, unspecified congestive heart failure chronicity, unspecified congestive heart failure type (I50.9)InactiveconfirmedProblemParkinsonism (disorder) (51574494) Parkinsonism, unspecified Parkinsonism type (G20.C)InactiveconfirmedTaking Carbidopa-Levodopa Encounters Encounter Location Date Provider Diagnosis [facility] [address] [place] [address] 10/07/2024 AMEYA BENITEZ Plan Of Treatment Pending Test Test Name Order Date HEMOGLOBIN A1c (496) [facility] 09/24/2023 UA Urinalysis Complete (5563) [facility] 03/2024 Lipid Panel, Standard (7600) [facility] f-Pay 09/24/2023 CBC (includes Differential and Platelets ) (6399) [facility] 09/24/2023 TSH and FREE T4 (43928) [facility] 09/24/2023 CT: Lumbar Spine WIthout Contrast 2021 COMPREHENSIVE METABOLIC PANEL (91260) [facility] EST 09/24/2023 INR 08/02/2018 INR 07/22/2019 INR 09/11/2016 INR 08/05/2013 Prothrombin Time/INR (PT) 0137-0 020 Chest X-ray PA and lateral 07/22/2011 CBC (INCLUDES DIFF/PLT) 07/30/2017 COMPREHENSIVE METABOLIC PANEL 10/27/2017 HEMOGLOBIN A1c 10/27/2017 CBC (INCLUDES DIFF/PLT) 10/27/2017 LIPID PANEL WITH DIRECT LDL 10/27/2017 Future Test Test Name Order Date Chest X-ray PA and lateral 07/22/2017 Vitamin D, 25-Hydroxy, Total, Immunoassa y (17579) - [facility] 09/23/2021 ESR Sed Rate by Modified Westergren (809 ) [facility] 09/23/2021 CBC (H/H, RBC, Indices, WBC, Plt) (1759) [facility] 09/23/2021 TSH and FREE T4 (49338) [facility] 09/23/2021 COMPREHENSIVE METABOLIC PANEL (93975) [facility] 09/23/2021 LIPID PANEL W/REFLEX TO DIRECT LDL (1485 2) [facility] 09/23/2021 Insurance Providers Payer Name Payer Address Payer Phone Subscriber Number Group Number Insured Name Patient Relationship to Insured Coverage Start Date Coverage End Date Medicare - [facility] [address] [address] [place] [address] [id number] Nahomy Fried - patient is the [facility] OF [address] [id number], Joyce ASelf - patient is the insured Medical (General) History Medical History History ICD Code Hypertension Chronic atrial fibrillationHypercoagulable state with history of multiple DVTs and pulmonary emboli, 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CA, status post PCI with stentsHypothyroidismCOPDPulmonary hypertension Breast cancer, bilateral mastectomiesDyslipidemiaChronic constipationChronic Coumadin therapychronic kidney diseaserespiratory failure with hypoxiaOSA on CPAPlung noduleanxietyCHF NYHA class IIIangina class IIIpersistent sinus bradycardiahistory of pulmonary embolismPacemaker February/2017Surgical History Surgery Date(Month/Year) Bilateral mastectomies 1989, 1991 Cholecystectomy HysterectomyIVC filterSigmoid colectomy, extensive diverticulosis, LGI bleed 05/02/2011Right knee replacement01/2013Patella removed01/2015Permanet Pacemaker -- persistent sinus bradycardia02/2017Right knee mgbndzwn6384Vsdnc knee infection - 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
--- OUTSIDE RECORDS SUMMARY | 2025-06-15 13:07 | XMS_ITS | Clinical Summary ---
Author Organization [facility] Address [address] [place] [address] Care Team Providers Care Choir Teacher Name Role Phone Douglas Will MD Primary Care Provider [phone] Allergies Active AllergyReactionsCriticalityNoted DateCommentsAcetaminophen-CodeineNausea Only,Other,GI glefngfrwswAflpbz73/15/2011 Other reaction(s): Abdominal Pain CobaltItching,Rash,YfcfzPhb14/16/2014 Other reaction(s): Welts CodeineNausea Only,Other,GI qrdjccoevdoIthmzb78/23/2018 Other reaction(s): Abdominal Pain DroxidopaShortness of zoavnvMzry53/30/2020Gold Au 198Itching,Rash,OtherLow 07/20/2014 Other reaction(s): Welts Gold KeratinateItching,Rash,ZuieaMwx92/21/2017 Other reaction(s): Welts Gold Sodium Thiomalate (Bulk)Itching,Rash,SqupoCkv74/19/2014 Other reaction(s): Welts LatexItching,Rash,BvygxCyw53/15/2012 Other reaction(s): Welts NickelItching,Rash,CsscyQsq46/16/2014 Other reaction(s): Welts Levonorgestrel-Ethinyl EstradItching,Cough,Runny yiluUrtqud34/04/2016 Medications MedicationSigDispense QuantityRefillsLast FilledStart DateEnd DateStatus warfarin (Coumadin) 5 mg tablet TAKE ONE 5MG TABLET ON THURSDAY, THURSDAY, THURSDAY AND THURSDAY. TAKE 7.5 ON THE OTHER DAYS.3Active triamcinolone (Kenalog) 0.1 % cream triamcinolone acetonide 0.1 % topical cream03/23/2022ctive traZODone (Desyrel) 150 mg tablet 12/31/2022ctive traMADol (Ultram) 50 mg tablet TAKE 1 TO 2 TABLETS BY MOUTH EVERY 8 HOURS NEEDED FOR PAIN FOR UP TO 7 DAYS 05/22/2022ctive tiotropium (Spiriva Respimat) 2.5 mcg/actuation inhaler in the morning.Active sotalol (Betapace) 120 mg tablet in the morning.Active sodium fluoride-pot nitrate 1.1-5 % paste BRUSH WITH A PEA SIZE AMOUNT TWICE DAILY IN PLACE OF REGULAR TOOTHPASTE 08/05/2022ctive roflumilast (Daliresp) 500 mcg tablet 12/25/2022ctive PARoxetine (Paxil) 20 mg tablet TAKE 1 TABLET BY MOUTH ONCE DAILY AT NIGHT10/05/2022ctive pantoprazole (ProtoNix) 40 mg EC tablet 01/15/2023ctive oxybutynin (Ditropan) 5 mg tablet Take 5 mg by mouth at bedtime.10/30/2022ctive omeprazole (PriLOSEC) [address] capsule omeprazole 40 mg capsule,delayed releaseActive nebivolol (Bystolic) 5 mg tablet Take 10 mg by mouth twice a day.Active mupirocin (Bactroban) 2 % ointment 04/17/2022ctive montelukast (Singulair) 10 mg tablet Take 10 mg by mouth at bedtime.12/19/2022ctive metoclopramide (Reglan) 10 mg tablet 11/27/2022ctive losartan (Cozaar) 100 mg tablet losartan 100 mg tabletActive levothyroxine (Synthroid, Levoxyl) 100 mcg tablet 01/20/2023ctive levocetirizine (Xyzal) 5 mg tablet Take 5 mg by mouth in the evening.07/24/2022ctive ipratropium (Atrovent) 42 mcg (0.06 %) nasal spray ipratropium bromide 42 mcg (0.06 %) nasal sprayActive hydrALAZINE (Apresoline) 25 mg tablet every 4 (four) hours.11/07/2019Active gabapentin (Neurontin) 300 mg capsule gabapentin 300 mg capsuleActive furosemide (Lasix) 20 mg tablet Take 20 mg by mouth in the morning.11/03/2022ctive Trelegy Ellipta 100-62.5-25 mcg blister with device 09/30/2022ctive fluticasone (Flonase) 50 mcg/actuation nasal spray 11/27/2022ctive fludrocortisone (Florinef) 0.1 mg tablet 11/17/2022ctive doxycycline (Monodox) 100 mg capsule 11/17/2022ctive docusate sodium (Colace) 100 mg capsule TAKE 1 CAPSULE BY MOUTH TWICE DAILY NEEDED FOR QOFVSADYKGDX54/20/2022ctive diclofenac (Voltaren) 1 % topical gel diclofenac 1 % topical gelActive clopidogrel (Plavix) 75 mg tablet 12/17/2022ctive cholecalciferol (Vitamin D-3) 1,250 mcg (50,000 unit) capsule Take 50,000 Units by mouth 1 (one) time per week.07/18/2022ctive celecoxib (CeleBREX) 200 mg capsule Take 200 mg by mouth in the morning and at bedtime.01/07/2023ctive cefdinir (Omnicef) 300 mg capsule Take 300 mg by mouth in the morning and at bedtime.06/26/2022ctive carbidopa-levodopa (Sinemet) 25-100 mg tablet Take 1 tablet by mouth at bedtime.12/17/2022ctive calcium carbonate (Tums) 200 mg calcium (500 mg) chewable tablet Chew 500 mg twice a day.05/06/2022ctive Breztri Aerosphere 160-9-4.8 mcg/actuation HFA aerosol inhaler INHALE 2 PUFFS IN THE MORNING AND AT TOARBSE7810/15/2022ctive budesonide-formoteroL (Symbicort) 160-4.5 mcg/actuation inhaler every 12 (twelve) hours.05/26/2018Active azelastine (Astelin) 137 mcg (0.1 %) nasal spray USE 2 SPRAY(S) IN EACH NOSTRIL TWICE DAILY12/19/2022ctive aspirin 81 mg EC tablet in the morning.Active amLODIPine (Norvasc) 10 mg tablet 01/13/2023ctive ALPRAZolam (Xanax) 0.5 mg tablet alprazolam 0.5 mg tabletActive albuterol 90 mcg/actuation inhaler INHALE 2 PUFFS BY MOUTH EVERY 4 HOURS NEEDED FOR ITNVAWIO81/14/2022ctive Acetaminophen Extra Strength 500 mg tablet TAKE 2 TABLETS BY MOUTH EVERY 8 HOURS05/06/2022ctive Social History Tobacco UseTypesPacks/DayYears UsedDateSmoking Tobacco: NeverPassive Smoke Exposure: NeverSmokeless Tobacco: Never Tobacco Cessation:Counseling Given: No Alcohol UseStandard Drinks/WeekCommentsNot Currently0 (1 standard drink = 0.6 oz pure alcohol)UT Safety & EnvironmentAnswerDate RecordedFear of Current or Ex-PartnerNot on file10/08/2023Emotionally AbusedNot on file10/08/2023hysically AbusedNot on file10/08/2023Sexually AbusedNot on file10/08/2023hysically or Sexually AbusedNot on file10/08/2023CommentsUnknownSex and Gender InformationValueDate RecordedSex Assigned at BirthNot on fileLegal SexFemale 02/12/2022 9:13 PM EDTGender IdentityNot on fileSexual OrientationNot on file Last Filed Vital Signs Vital SignReadingTime TakenCommentsBlood Oanhrjko082/7909 4:31 PM EDT Pulse--Temperature--Respiratory Rate--Oxygen Vgirlyiymi21%04/12/2020 3:30 PM EDT Inhaled Oxygen Concentration--Smmfor84.5 kg (111 lb 5.3 oz)02/09/2023 5:35 PM CBIBnwvsu610.1 cm (5' 3.03 )02/09/2023 5:35 PM EDTBody Mass Index19.706 5:35 PM EDT Plan of Treatment Health MaintenanceDue DateLast DoneCommentsMedicare Annual Wellness (AWV) 1940Depression Eixradjky71/07/1952Fall Risk Wgtpswxtf25/07/2004COVID-19 Vaccine ( season)Influenza Vaccine (#1)2025 05/02/2023, 04/15/2022, 06/25/2021, Additional history existsAdult Tetanus , 06/30/2018, 06/22/2018Pneumococcal Vaccine: 50+ Years Ojzndixsz97/16/2023, 11/27/2016, 06/21/2015, Additional history existsZoster YizaqjehKtzvwmsbt80/07/2023, 05/02/2023, 05/12/2013HIB VaccinesAged OutNo longer eligible based on patient's age to complete this topicHPV VaccinesAged OutNo longer eligible based on patient's age to complete this topicIPV VaccinesAged OutNo longer eligible based on patient's age to complete this topicMeningococcal B VaccineAged OutNo longer eligible based on patient's age to complete this topicMeningococcal VaccineAged OutNo longer eligible based on patient's age to complete this topicRotavirus VaccinesAged OutNo longer eligible based on patient's age to complete this topic Insurance * Guarantor: Nahomy Fried AAccount TypeRelation to PatientDate of BirthPhone Billing AddressPersonal/HxmvelMngk1940 [address] [address] [place] [address] Care Teams Team MemberRelationshipSpecialtyStart DateEnd Date Douglas Will MD [address] [place] [address] [facility] Eqwqvbea21[facility]/24
--- OUTSIDE RECORDS SUMMARY | 2025-06-15 13:07 | XMS_ITS ---
Author Organization [employer] [facility] tem Address [id number] [place] [address] Care Team Providers Care Bonding Equipment Operator Name Role Phone Douglas Will MD Primary Care Provider [phone] Active Problems Patient Care Coordination No te Formatting of this note migh t be different from the original. DME: [employer] ProblemNoted DateDiagnosed DateAge-related osteoporosis without current pathological zwjibbbr19/30/2025Non-pressure chronic ulcer left lower leg, limited to breakdown skin12/14/2024Multiple falls12/13/2024Intramural hematoma of thoracic aorta01/14/2024 Assessment & Plan (01/14/2024 9:53 AM EDT): She is status post endovascular repair. Postoperative CTA shows excellent repair. She is doing wellfrom that standpoint. Severe protein-calorie /16/2024Generalized jgivnwom72/16/2024 Chronic diastolic heart bytwjgk4212/31/2023History of DVT (deep vein thrombosis) 12/31/2023MTHFR gene xvieqimo82/16/2024arkinson's xpzelke6812/31/2023Failure to thrive in adult12/30/2023enetrating ulcer of aorta12/20/2023 Assessment & Plan (01/14/2024 9:53 AM EDT): She has a small just juxtarenal penetrating aortic ulcer. Will conservatively manage this for now. Will serially examine her. Will get a CT of the chest abdomen pelvis in 6 months Hypertensive drxrvjuwk07/08/2024ortic xjjcxdgbos26/08/2024 Assessment & Plan (07/13/2024 1:15 PM EST): Surveillance imaging in a year Qnmlffgrj53/31/2023Infection of prosthetic right knee joint03/07/2023sthma 02/04/2023trial qzsvyfqituvz36/21/2023reast tbfexb7302/04/2023AD (coronary artery disease)02/04/2023hronic anznzucbbp17/21/2023iastolic dysfunction 02/04/20230482Ntwcnwreziev99/21/2023HTN (hypertension)02/04/2023Hyperlipemia 02/04/20230608Rkmxwcohxlgopu56/21/2023OA (osteoarthritis)02/04/2023neumonia 02/04/2023ulmonary /21/2023ulmonary kshwaueecgjo40/21/2023Shortness of kqamoc0106/10/2018C. difficile bjdnyfh0104/17/2018Orthostatic hypotension 03/17/2018History of tobacco use12/17/2017Chronic hiberubzfcbwhzi60/03/2018 Srxvaaprzwwos36/03/2018OSA (obstructive sleep apnea)12/17/2017History of pulmonary eejzdjns90/03/2018Chronic obstructive pulmonary xncamoc1112/17/2017 Current Treatment and Therapy Plans No current plan information found. Past Treatment and Therapy Plans No past plan information found. Lifetime Dose Tracking * ChemicalLifetime DoseAutomatic EntryManual ImvtvGnomgfrtzli534 gVf450 mGy0 mGy Resolved Problems ProblemNoted DateDiagnosed DateResolved DatePulmonary kyjdnt29 Chronic respiratory failure with aqwaiyr50Acute bronchitis
--- OUTSIDE RECORDS SUMMARY | 2025-06-15 13:07 | XMS_ITS | Clinical Summary ---
Author Organization [email or web address] [facility] tem Address [id number] [address] [place] [address] Care Team Providers Care Case Hardener Name Role Phone Douglas Will MD Primary Care Provider [phone] Allergies Active AllergyReactionsCriticalityNoted AgwmJvecggroUmejmtIbtzVnw46/21/2017 AimdbtzSpegcrEakkiu64/23/2018DroxidopaShortness Of SnbrjhEcds49/30/2020Gold Au 713JtezbewWox80/21/2017Gold VswnjcbubuUyziuvqQuo06/21/7431DvqwoAcekTtz10/21/2017 Levonorgestrel-Ethinyl EstradItching,VksvpZcxetz63/04/2016NickelHivesLow 12/05/2016OtherOther (See Comments)10/04/2018 Annotation - [id number]: Nickel, Foster, Gold Compounding Medications MedicationSigDispense QuantityRefillsLast FilledStart DateEnd DateStatus celecoxib (CeleBREX) 200 mg capsule Indications:osteoarthritisTake 1 capsule (200 mg total) by mouth in the morning and 1 capsule (200 mg total) before bedtime. Indications: joint damage causing pain and loss of function.09/18/2021ctive clopidogreL (PLAVIX) 75 mg tablet Indications:thrombosis prevention after PCITake 1 tablet (75 mg total) by mouth in the morning. Indications: blood clot prevention following percutaneous coronary intervention.12/09/2021ctive mypqnxknnqk-wssfglngp-lbdwanjd (TRELEGY ELLIPTA) 100-62.5-25 mcg blister with device Inhale 1 puff once daily. 180 each ctive montelukast (SINGULAIR) 10 mg tablet Take 1 tablet (10 mg total) by mouth nightly.12/19/2022ctive metoprolol succinate 100 mg capsule,sprinkle,ER 24hr Take 100 mg by mouth in the morning.Active atorvastatin (LIPITOR) 40 mg tablet Take 1 tablet (40 mg total) by mouth nightly. 90 tablet 12/25/2023ctive fludrocortisone (FLORINEF) 0.1 mg tablet Take 2 tablets (0.2 mg total) by mouth in the morning.05/11/2024ctive levothyroxine (SYNTHROID, LEVOTHROID) 100 MCG tablet Take 1 tablet (100 mcg total) by mouth in the morning.03/18/2024ctive oxybutynin XL (DITROPAN-XL) 10 mg 24 hr tablet 07/03/2024ctive rOPINIRole (REQUIP) 1 mg tablet Take 1 tablet (1 mg total) by mouth.Active sodium fluoride-pot nitrate 1.1-5 % paste 04/22/2024ctive traZODone (DESYREL) 150 mg tablet Take 150 mg by mouth.Active ELIQUIS 5 mg tablet TAKE 1/2 (ONE-HALF) TABLET BY MOUTH IN THE MORNING AND 1/2 (ONE-HALF) AT BEDTIME 60 tablet 11/28/2024tive cloNIDine (CATAPRES) 0.2 mg tablet Take 1 tablet (0.2 mg total) by mouth 3 (three) times a day as needed for high blood pressure.Active cyanocobalamin 1000 MCG tablet Take 1 tablet (1,000 mcg total) by mouth in the morning. 30 tablet 5Active Active Problems Patient Care Coordination No te Formatting of this note migh t be different from the original. DME: [employer] ProblemNoted DateDiagnosed DateAge-related osteoporosis without current pathological ixlqoxmh10/30/2025Non-pressure chronic ulcer left lower leg, limited to breakdown skin12/14/2024Multiple falls12/13/2024Intramural hematoma of thoracic aorta01/14/2024 Assessment & Plan (01/14/2024 9:53 AM EDT): She is status post endovascular repair. Postoperative CTA shows excellent repair. She is doing wellfrom that standpoint. Severe protein-calorie frmgchsewtkl20/16/2024Generalized kdxvurdr62/16/2024 Chronic diastolic heart xlwhfek9212/31/2023History of DVT (deep vein thrombosis) 12/31/2023MTHFR gene wcmvqegm43/16/2024arkinson's tbbpsqf4812/31/2023Failure to thrive in adult12/30/2023enetrating ulcer of aorta12/20/2023 Assessment & Plan (01/14/2024 9:53 AM EDT): She has a small just juxtarenal penetrating aortic ulcer. Will conservatively manage this for now. Will serially examine her. Will get a CT of the chest abdomen pelvis in 6 months Hypertensive pyoqmktbi12/08/2024ortic ryuxeemlni49/08/2024 Assessment & Plan (07/13/2024 1:15 PM EST): Surveillance imaging in a year Kkcesiifu59/31/2023Infection of prosthetic right knee joint03/07/2023sthma 02/04/2023trial zsexcymrcdjn80/21/2023reast zxmfqc3502/04/2023AD (coronary artery disease)02/04/2023hronic aycznyvdop44/21/2023iastolic dysfunction 02/04/20231682Vuxkgldxvjcx78/21/2023HTN (hypertension)02/04/2023Hyperlipemia 02/04/20231465Anlrocrdzubplk72/21/2023OA (osteoarthritis)02/04/2023neumonia 02/04/2023ulmonary ewxdlcht76/21/2023ulmonary bztkbvvmwdqe53/21/2023Shortness of lvynnj7606/10/2018C. difficile gbcnvow6304/17/2018Orthostatic hypotension 03/17/2018History of tobacco use12/17/2017Chronic xodyptciiivdfrx73/03/2018 Sjdppnfljcakv63/03/2018OSA (obstructive sleep apnea)12/17/2017History of pulmonary yiuorlbj33/03/2018Chronic obstructive pulmonary nzhoopt9212/17/2017 Resolved Problems ProblemNoted DateDiagnosed DateResolved DatePulmonary ugtpul17 Chronic respiratory failure with hxjlpds63Acute bronchitis Encounters DateTypeDepartmentCare RcdqCoipuvqwelu73/29/2025 11:53 AM EDT - 06/14/2025 11:59 PM EDTHospital Encounter [facility] [address] [place] [place] [phone] Fadi Higgins MD 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[facility]); Penetrating ulcer of aorta Discharge Disposition: Home06/14/20256806Nxxgvf57/06/2025Orders Only [facility] [address] [place] [address] Rossy Pace CMA 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); Penetrating ulcer of aorta05/19/2025Telephone [facility] [address] [place] [address] Fadi Higgins MD 03/31/2025Lab Requisition [facility] - Lab [address] [place] [phone] Douglas Will MD Acute kidney failure, unspecifiedfrom Last 3 Months Immunizations ImmunizationAdministration DatesNext DueInfluenza High Dose Preservative Free IM 06/25/2021,05/10/2020,05/27/2019,05/17/2018Influenza Whole05/17/2014Influenza, High-dose, Ltqnwaurbpoa67/16/2023,04/15/2022Influenza, Im Trivalent Preservative 05/08/2018Influenza, Cxudkbzslnu48/16/2023,04/15/2022,06/25/2021,05/10/2020, 06/17/2019,05/27/2019,05/17/2018,05/08/2018Pneumococcal Conjugate 13-Valent 11/27/2016,06/21/2015Pneumococcal Conjugate 20-ctwsfk203Pneumococcal Rbperqladuwfnf98/18/2011,08/17/2007,08/17/1998Tdap02/10/2023,06/30/2018, 06/22/2018Zoster Live05/12/2013Zoster Vaccine Xsoocettyij77/07/2023,05/02/2023 Family History Medical HistoryRelationNameCommentsPulmonary embolismFatherColon cancerMother HypertensionMotherAnesthesia problemsNeg HxRelationNameStatusCommentsBrother DeceasedFatherDeceasedMotherDeceasedSon 1AliveSon 2AliveSon 3AliveSon 4AliveSon 5Alive Social History Tobacco UseTypesPacks/DayYears UsedDateSmoking Tobacco: FtxggvZxagfrfvqx6095339 - 1980Smokeless Tobacco: Never Tobacco Cessation:Counseling Given: Not Answered Comments:Smoked less in past Alcohol UseStandard Drinks/WeekCommentsNo0 (1 standard drink = 0.6 oz pure alcohol)[facility] UtilitiesAnswerDate RecordedIn the past 12 months has the electric, gas, oil, or water company threatened to shut off services in your home?No 12/13/2024Social Connection and Isolation PanelAnswerDate RecordedIn a typical week, how many times do you talk on the phone with family, friends, or neighbors?More than three times a week05/21/2023Frequency of Social Gatherings with Friends and FamilyNot on file05/21/2023ttends [facility] ServicesNot on file05/21/2023ctive Member of Clubs or OrganizationsNot on file05/21/2023 Attends Club or Organization MeetingsNot on file05/21/2023Marital StatusNot on file05/21/2023UDIT-CAnswerDate RecordedQ1: How often do you have a drink containing alcohol?Never12/21/2023Q2: How many drinks containing alcohol do you have on a typical day when you are drinking?Patient does not drink12/21/2023Q3: How often do you have six or more drinks on one occasion?Never12/21/2023HQ-2 AnswerDate RecordedTotal Rndcm036Finamerican fork hospital [place] of Occupational Health - Occupational Stress QuestionnaireAnswerDate [...] a part of a household?No12/13/2024hildcareAnswerDate RecordedChildcareUnknown 01/17/2019EmploymentAnswerDate TlwodqxgIvolrhckusFqcidkl18/03/2019Hunger ScreeningAnswerDate RecordedWithin the past 12 months we worried whether our food would run out before we got money to buy more.Never True12/13/2024Within the past 12 months the food we bought just didn't last and we didn't have money to get more.Never True12/13/2024Purpose - LifeAnswerDate RecordedPurpose and direction in vbdoInyfsfg23/11/2021CommentsNoSex and Gender Information ValueDate RecordedSex Assigned at BirthNot on fileLegal ExsZcrmrt62/06/2015 11:22 AM EDTGender IdentityNot on fileSexual OrientationNot on file Last Filed Vital Signs Vital SignReadingTime TakenCommentsBlood Gbbjpezq180/68012/16/2024 11:08 AM EDT Tvoll1473 11:08 AM UPKOrzfghmkjjn02.7 ??C (98 ??F)12/16/2024 11:08 AM EDTRespiratory Atkx020312/16/2024 11:08 AM EDTOxygen Ditttvepeg11%12/16/2024 11:08 AM EDTInhaled Oxygen Concentration--Gxzttp93.3 kg (97 lb 11.2 oz)12/13/2024 9:03 PM ODHWhaycc589 cm (5' 3 )12/13/2024 9:03 PM EDTBody Mass Index17.31012/13/2024 9:03 PM EDT Plan of Treatment DateTypeDepartmentCare Team (Latest Contact Info)Bkwrhbuhnlb05/06/2025 11:00 AM ESTOffice Visit [facility] [place] [address] [address] Fadi Higgins MD [address], [address] [address] Health MaintenanceDue DateLast DoneCommentsFall Risk Gydbrudtw36/07/2004 Depression Vlvyrszmn50/OVID-19 Vaccine (4 - 2024- season) /09/2022, 04/15/2022, 06/25/2021Influenza Jjnylxi9904/17/2025 04/27/2024, 05/02/2023, 05/02/2023, Additional history existsTobacco Screening DTaP,Tdap and Td Vaccines (4 - Td or Tdap)02/10/2033 02/10/2023, 06/30/2018, 06/22/2018Zoster (Shingles) FpviwoqErinfvzuy46/07/2023, 05/02/2023, 05/12/2013 Medical Devices ImplantedTypeAreaManufacturerDevice IdentifierShelf Expiration DateModel / Serial / LotStent 7fr 135cm Vbx Ba Ppm Expandable Cath Hep Vbhn Eprsth 8 Rpl [id number] - [id number] - [id number] Implanted:Qty: 1 on 11/28/2023 by Fadi Higgins MD at [facility]/A: UrbecaljNmfv64/07/[id number] / [id number] / Graft Stnt 192mm 32mm 22fr Valiant [place] Sinusoidal Str - [id number] - [id number] Implanted:Qty: 1 on 11/28/2023 by Fadi Higgins MD at [facility]/A: AortaMEDTRONIC [place]02/04/[id number] / [id number] / Graft Stnt 192mm 22fr Valiant [place] Cls 30mm - [id number] - [id number] Implanted:Qty: 1 on 11/28/20[facility]A: AortaMEDTRONIC [facility]04/14/[id number] / [id number] / Procedures Procedure NamePriorityDate/TimeAssociated DiagnosisCommentsCT CTA ABD AND PELVIS Pznociy7506/14/2025 2:09 PM EDT 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 CT CTA WJFJVEgzurhm54/29/2025 2:09 PM EDT 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 CBC WITH AUTO XGMODSLSPRIMEhggbtv17/15/2025 11:00 AM EDT Acute kidney failure, unspecified BASIC METABOLIC WGZAHQuakszo07/15/2025 11:00 AM EDT Acute kidney failure, unspecified from Last 3 Months Results * CT angiogram chest (06/14/2025 2:09 PM EDT)Anatomical RegionLateralityModality Lung, Body, Chest, Vascular, Body CoveraN/AComputed TomographySpecimen (Source)Anatomical [...] MD on 06/15/2025 9:07 AM Procedure Note Sivan, Ben Marion MD - 06/15/2025 CT CTA CHEST HISTORY: [...] CT ORDERABLES Final Result * CT angiogram abdomen and pelvis (06/14/2025 [...] adrenal glands, and urinary tract demonstrate no acuteabnormality. Stable simple left renal cyst and 1.5 cm right renal lesion,statistically likely to represent a hemorrhagic or proteinaceous [...] ACR Incidental Findings Committee. J Am Wei Bapvtc2257;14:911-923. Approved by Resident Lewis Ignacio MD on 06/15/2025 7:43 AM I, Ben Finnegan MD have personally reviewed the image(s) and agreewith and/or edited the report Finalized by Ben Finnegan MD on 06/15/2025 8:44 AM Authorizing ProviderResult TypeResult StatusMohamjoann Higgins MDIMAnton CT ORDERABLES Final Result * (ABNORMAL) CBC auto differential (03/31/2025 11:00 AM EDT)ComponentValueRef RangeTest MethodAnalysis TimePerformed AtPathologist SignatureWBC5.34 - 11 x10E9/L03/31/2025 1:18 PM [facility]ITALRBC Count2.74 (L)3.8 - 5.2 X10E12/L03/31/2025 1:18 PM [facility] Hemoglobin7.7(L)11.7 - 15.5 g/dL03/31/2025 1:18 PM [facility]ITALHematocrit23.0(L)35 - 47 %03/31/2025 1:18 PM [facility]ITALMCV8480 - 100 fL03/31/2025 1:18 PM [facility]ITALMCH28.227 - 34 pg03/31/2025 1:18 PM [facility]ITALMCHC33.632 - 36 g/dL03/31/2025 1:18 PM [facility]OSPITALRDW18.2(H)11.5 - 15 %03/31/2025 1:18 PM EDMERCY HEALTH LORAIN HOSPITALPlatelet Arral533224 - 450 X10E9/L03/31/2025 1:18 PM EDMERCY HEALTH LORAIN HOSPITALMPV7.77 - 12 fL03/31/2025 1:18 PM EDT [facility]ITALNeutrophils %81.9%03/31/2025 1:18 PM EDT [facility]OS[facility]ITALLymphocytes %11.0%03/31/2025 1:18 PM EDT [facility]ITALMonocytes %5.6%03/31/2025 1:18 PM EDT [facility]ITALEosinophils %0.7%03/31/2025 1:18 PM EDT [facility]ITALBasophils %0.8%03/31/2025 1:18 PM EDT [facility]ITALNeutrophils Absolute (A)4.31.5 - 6.6 10*3/uL03/31/2025 1:18 PM EDTPWYANDOT MEMORIAL HOSPITALLymphocytes Absolute0.6(L)1.0 - 3.5 10*3/uL03/31/2025 1:18 PM EDTPAULTMAN ALLIANCE COMMUN[facility]ITAL HOSPITALMonocytes Absolute0.30.0 - 0.9 10*3/uL03/31/2025 1:18 PM EDT [facility]OS[facility]ITALEosinophils Absolute0.00.0 - 0.4 10*3/uL 03/31/2025 1:18 PM EDMERCY HEALTH [facility]AIN HOSPITALBasophils Absolute0.0 0.0 - 0.2 10*3/uL03/31/2025 1:18 PM [facility] Differential TypeAUTOMATED QHMCLNUWQEBW41/15/2025 1:18 PM EDNEWARK HOSPITALpecimen (Source)Anatomical Location / LateralityCollection Method / VolumeCollection TimeReceived TimeBloodVenous blood / Unknown 03/31/2025 11:00 AM EDT03/31/2025 12:50 PM EDT Narrative Authorizing ProviderResult TypeResult StatusMarmayte MAE BLOOD ORDERABLES Final ResultPerforming OrganizationAddressCity/State/ZIP CodePhone Number [facility] [address] [place] [address], [place] * (ABNORMAL) Basic Metabolic Panel (03/31/2025 11:00 AM EDT)ComponentValueRef RangeTest MethodAnalysis TimePerformed AtPathologist TozlastewBEJUMV466036 - 146 mmol/L03/31/2025 1:33 PM EDMERCY HEALTH LORAIN HOSPITALPOTASSIUM 3.73.5 - 5.0 mmol/L03/31/2025 1:33 PM [facility] RONLLRSH658(H)98 - 109 mmol/L03/31/2025 1:33 PM [facility] HOSPITALCARBON ELMHIMF97(L)22 - 32 mmol/L03/31/2025 1:33 PM [facility] HOSPITALANION GAP4(L)5 - 15 mmol/L03/31/2025 1:33 PM EDT [facility] HOSPITALBLOOD UREA TNMNVCFG674 - 27 mg/dL03/31/2025 1:33 PM [facility] HOSPITALCREATININE1.02(H)0.40 - 1.00 mg/dL03/31/2025 1:33 PM [facility]OSPITALComment:METHOD TRACEABLE TO IDMS NTRBAMYBSOBFMEN072(H)65 - 99 mg/dL03/31/2025 1:33 PM EDT [facility] HOSPITALCALCIUM8.0(L)8.5 - 10.5 mg/dL03/31/2025 1:33 PM [facility] HOSPITALEGFR Non-Race Iypbygigd44(L)>=60 ml/min/1.73sq.m003/31/2025 1:33 PM [facility] Comment: eGFR not reported due to non-numeric value for Creatinine. Reported eGFR is based on the CKD-EPI 2020 equation that does not use a race coefficient. Specimen (Source)Anatomical Location / LateralityCollection Method / Volume Collection TimeReceived TimeBloodVenous blood / Fehemml9303/31/2025 11:00 AM EDT 03/31/2025 12:50 PM EDT Narrative Authorizing ProviderResult TypeResult StatusDouglas MAE BLOOD ORDERABLES Final ResultPerforming OrganizationAddressCity/State/ZIP CodePhone Number [facility] [place] [address] [facility] [place] [address], from Last 3 Months Insurance * Guarantor: Brooke Fried TypeRelation to PatientDate of BirthPhone Billing AddressPersonal/TdhpahEzce1940 [facility] [address] [place] [address] Advance Directives TypeDate RecordedPatient RepresentativeExplanationDurable Power of Abalone Sheller 12/14/2023 12:31 PM * Full Code (Latest Code Status on File) Date ActivatedDate InactivatedComments12/13/2024 8:08 PM12/16/2024 5:38 PM * Full Code Date ActivatedDate InactivatedComments01/15/2024 1:16 AM01/19/2024 11:12 PM * Full Code Date ActivatedDate InactivatedComments12/31/2023 2:13 AM01/01/2024 7:06 PM * Full Code Date ActivatedDate InactivatedComments12/20/2023 5:43 PM12/25/2023 3:42 PM * Full Code Date ActivatedDate InactivatedComments11/23/2023 8:04 PM11/23/2023 9:03 PM Care Teams Team MemberRelationshipSpecialtyStart DateEnd Date Douglas Will MD PCP - GeneralFamily Wdjxicjf81/4/21
--- OUTSIDE RECORDS SUMMARY | 2025-06-15 13:07 | XMS_ITS | Encounter Summary ---
Author Organization [employer] s tem Address [id number] [address] [place] [address] Care Team Providers Care Health Communications Specialist Name Role Phone Douglas Will MD Primary Care Provider [phone] Encounter Details DateTypeDepartmentCare Team (Latest Contact Info)Ojmsimlbtee62/29/2025Travel Social History Tobacco UseTypesPacks/DayYears UsedDateSmoking Tobacco: MhxncvRjmjfwpndd8508903 - 1980Smokeless Tobacco: Never Comments:Smoked less in past Alcohol UseStandard Drinks/WeekCommentsNo0 (1 standard drink = 0.6 oz pure alcohol)[facility] UtilitiesAnswerDate RecordedIn the past 12 months has the electric, gas, oil, or water [employer] threatened to shut off services in your home?No 12/13/2024Social Connection and Isolation PanelAnswerDate RecordedIn a typical week, how many times do you talk on the phone with family, friends, or neighbors?More than three times a week05/21/2023Frequency of Social Gatherings with Friends and FamilyNot on file05/21/2023ttends [facility] ServicesNot on file05/21/2023ctive Member of Clubs or OrganizationsNot on file05/21/2023 Attends Club or Organization MeetingsNot on file05/21/2023Marital StatusNot on file05/21/2023UDIT-CAnswerDate RecordedQ1: How often do you have a drink containing alcohol?Never12/21/2023Q2: How many drinks containing alcohol do you have on a typical day when you are drinking?Patient does not drink12/21/2023Q3: How often do you have six or more drinks on one occasion?Never4PHQ-2 AnswerDate RecordedTotal Qbpth208Finbear river valley hospital [place] of Occupational Health - Occupational Stress QuestionnaireAnswerDate RecordedDo you feel stress - tense, restless, nervous, or anxious, or unable to sleep at night because your mind is troubled all the time - these days?Not at all3PRAPARE - TransportationAnswerDate RecordedIn the past 12 months, [...] a part of a household?No12/13/2024hildcareAnswerDate RecordedChildcareUnknown 01/17/2019EmploymentAnswerDate SxwzzydbIcmxhhaczsNhxnxyu88/03/2019Hunger ScreeningAnswerDate RecordedWithin the past 12 months we worried whether our food would run out before we got money to buy more.Never True12/13/2024Within the past 12 months the food we bought just didn't last and we didn't have money to get more.Never True12/13/2024Purpose - LifeAnswerDate RecordedPurpose and direction in ixuoTndwzea99/11/2021CommentsNoSex and Gender Information ValueDate RecordedSex Assigned at BirthNot on fileLegal ZjjFkntls27/06/2015 11:22 AM EDTGender IdentityNot on fileSexual OrientationNot on filedocumented as of this encounter Plan of Treatment DateTypeDepartmentCare Team (Latest Contact Info)Wkxfilzflli98/06/2025 11:00 AM ESTOffice Visit [facility] [place] [address] [place] [address] Fadi Higgins MD [address], [address] [address] documented as of this encounter Visit Diagnoses Not on filedocumented in this encounter Additional Health Concerns AssessmentNoted TimePHQ-9 Depression Total Score: 10:24 AM EDT documented as of this encounter Care Teams Team MemberRelationshipSpecialtyStart DateEnd Date Douglas Will MD PCP - GeneralFamily Wcyqpmqw17/4/21documented as of this encounter
--- OUTSIDE RECORDS SUMMARY | 2025-06-15 13:08 | XMS_ITS ---
Author Organization [facility] Address [address] [place] [address] Phone Care Team Providers Care Firewall Engineer Name Role Phone Douglas Will MD Primary Care Provider + Active Problems ProblemNoted DateDiagnosed DateGastroesophageal reflux jcrgldc6002/09/2025Status post insertion of percutaneous endoscopic gastrostomy (PEG) tube02/09/2025 Actinic dsbzykdll84/16/2024omplex regional pain syndrome affecting both upper arms04/01/2024Shy-Drager /16/2024HF (congestive heart failure) 04/01/2024epressive /16/2024ifficulty gpimfst5204/01/2024iverticular yxqjvso5004/01/2024ecurrent falls04/01/2024History of cardiac pacemaker in situ 04/01/2024Obesity with body mass index 30 or kopnwth1804/01/2024resence of stent in coronary jqfjab1104/01/2024rosthetic joint dhnxekyro06/16/2024ysphagia 03/28/2024MDD (major depressive disorder), recurrent episode, /12/2024 Overview (04/01/2024): Last Assessment & Plan: Symptoms controlled with trazodone and continue. Parkinson's vzqergn6812/31/2023Failure to thrive in adult12/30/2023 Overview (04/01/2024): Last Assessment & Plan: Started tube feeds and now has diarrhea. Contact surgeon and may need to adjust feeds. Physical rlmuouihsrfvhn12/15/2024Achalasia of bwrcfc984Cyst of left wrvcdn4912/16/2023ersistent mhmxujyy73/01/0539Tzwihfwqurn40/01/2024rimary osteoarthritis of both knees3738Ymosfnj85/01/2024Lung mass12/14/2023ortic aneurysm of unspecified site, without vcfwpym5511/23/2023enetrating ulcer of aorta11/23/2023 Overview (04/01/2024): Last Assessment & Plan: Recent procedure and doing well. Follow with vascular. Last Assessment & Plan: She is status post endovascular repair. Postoperative CTA shows excellent repair. She is doing wellfrom that standpoint. Last Assessment & Plan: No pain and follow with vascular. Mixed jrlzfzbgjpzmud56/21/2023Iron deficiency flbang2204/18/2022 Overview (04/01/2024): Last Assessment & Plan: Assessment: per Blood management Algorithm. Pt. treated per Algorithm protocol. Pt. notified and assisted with scheduling per [facility] RN Restless legs olovnxfd63/01/2022 Overview (04/01/2024): Last Assessment & Plan: Assessment: managed with Sinemet Stable. Yhppemhmywoe11/09/2022aroxysmal atrial yvsdjnbgifoi94/17/2020 Overview (04/01/2024): dx 2008 Last Assessment & Plan: Assessment: anticoagulated with warfarin Follows with cardiology Supine ygqmmxvpfniu33/09/2834Eckqjfoxo40/09/2020 Overview (04/01/2024): Last Assessment & Plan: Assessment: AV Biotronik ( 2017) in [facility] for chronotropic incompetence last check 03/25/2022 and card ( scanned into [employer]) Essential hypertension, pazeqh1112/19/2019 Overview (04/01/2024): Last Assessment & Plan: BP controlled and monitor PRN. Orthostatic gcqyvgehzpv16/01/2018 Overview (04/01/2024): Last Assessment & Plan: BP improved and continue florinef. 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 EF 55%, 70% proximal stenosis in a moderate sized OM2 branch of the Cx, 60-70% proximal RCA stenosis. 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 so has IVC filter placed History of thromboembolism of vein12/17/2011 Overview (04/01/2024): Last Assessment & Plan: Assessment: Hx DVT s/p Elham filter ( 2007), PE anticoagulated denies any recent episodes Mnleftivduwpli50/04/2012 Overview (04/01/2024): Last Assessment & Plan: No signs of low thyroid and repeat labs. Infection of prosthetic joint11/19/2011Gastro-esophageal reflux disease with ewfrtvohhmq19/22/2011Stage 2 moderate COPD by GOLD rnnhoiwrsvwzsr51/27/2011 Overview (04/01/2024): Last Assessment & Plan: Mild SOB and continue inhalers. Last Assessment & Plan: Symptoms stable and continue flonase. Current Treatment and Therapy Plans No current plan information found. Past Treatment and Therapy Plans No past plan information found. Lifetime Dose Tracking * ChemicalLifetime DoseAutomatic EntryManual EntryAir Kerma54.95 mGy54.95 mGy0 mGy Resolved Problems ProblemNoted DateDiagnosed DateResolved DateAcute maxillary sinusitis, dozwqlslkhu01cute respiratory ynycfxf66 Hrfeltbuoen36ellulitis of skinllergic fbzwyskz36Increased awrynb54ysphagia, unspecified typeInflammation of sacroiliac joint03/17/2024 04/01/2024cute renal failure superimposed on chronic kidney ikqkvrg8601/14/2024 04/01/2024llergic rhinitis due to svqtnc76Hypertensive wovnzqjxg69typical chest painHypertensive fhzkunbjs86Laceration without foreign body, left lower leg, initial awbgrfhsk83/Infection of prosthetic right knee joint reast xzdcku58 Overview (04/01/2024): s/p b/l massectomies Last Assessment & Plan: Assessment: right breast cancer s/p bilateral mastectomy ( 1989,1991) and chemotherapy Centrilobular ywymcmejs83neumoniaIron kevlwvcliomnc90 Overview (04/01/2024): Last Assessment & Plan: Assessment:JAYSON, per Blood management Algorithm. Pt. treated per Algorithm protocol. Pt. notified and assisted with scheduling per [facility] RN Cicejhfmdgt52KI (acute kidney injury) Infection of peripherally inserted central venous catheter (PICC)10/28/2018 04/01/2024 Overview (04/01/2024): IMO update October 2020 version Cellulitis of leg, right4C. difficile zkkowjl1604/17/2018 2826Cendxnqsao27iverticulitis of colon07/08/2011 04/01/2024
--- OUTSIDE RECORDS SUMMARY | 2025-06-15 13:08 | XMS_ITS | Clinical Summary ---
Author Organization [facility] Address [address] [facility] [address] Care Team Providers Care Compensator Name Role Phone Douglas Will MD Primary Care Provider [phone] Allergies Active AllergyReactionsCriticalityNoted DateCommentsAcetaminophen-CodeineOther, GI intolerance,Nausea Only,RckfdzlCphrku47/15/2011 Other reaction(s): Abdominal Pain CobaltItching,Other,Unknown,MjztKwfy07/16/2014 welts Other reaction(s): Welts Other reaction(s): Welts welts CodeineGI intolerance,Nausea Only,Other,GumvjiqBxnror28/23/2018 Other reaction(s): nausea, severe Acetaminophen-codeine Other reaction(s): nausea, severe Other reaction(s): Abdominal Pain Other reaction(s): nausea, severe Acetaminophen-codeine Other reaction(s): nausea, severe Acetaminophen-codeine Other reaction(s): nausea, severe Other reaction(s): Abdominal Pain Other reaction(s): nausea, severe Acetaminophen-codeine DroxidopaShortness of wkzljxQohq69/30/2020GoldGI zmtqmncmyhfPaz01/21/2017 itching [place] welts Gold-Containing Drug ProductsGI intolerance,Itching,Other,Rash,UnknownHigh 03/01/2014 itching Other reaction(s): Intolerance itching Other reaction(s): Welts itching ??[place] welts Other reaction(s): Welts Other reaction(s): Intolerance itching Other reaction(s): Welts itching QafodMbbsVwe32/15/2012 Patient states allergic to Latex Patient states allergic to Latex Levonorgestrel-Ethinyl EstradCough,Itching,Runny fzwhSxpnqr24/04/2016NickelHives ,Itching,Other,Unknown,UvzrKlst49/16/2014 Other reaction(s): Welts nickel Other11/19/2015 Medications MedicationSigDispense QuantityRefillsLast FilledStart DateEnd DateStatus clobetasol (Temovate) 0.05 % ointment Indications:Rash and other nonspecific skin eruptionApply to affected areas, up to twice a day when flared, do not use one the face, groin, or underarms, 30 day supply 60 g 1114Active metoprolol succinate XL (Toprol-XL) 100 MG 24 hr tablet Indications:Essential hypertension, benignTake 1 tablet (100 mg) by mouth Daily 30 tablet 5Active Roflumilast 500 MCG tablet Indications:Chronic obstructive pulmonary disease, unspecified COPD type (HCC) Take 1 tablet by mouth once daily 30 tablet 4Active montelukast (Singulair) 10 MG tablet Indications:Chronic rhinosinusitisTake 1 tablet (10 mg) by mouth at bedtime 30 tablet 11009/19/9815816Active celecoxib (CeleBREX) 200 MG capsule Indications:Primary osteoarthritis of both kneesTake 1 capsule (200 mg) by mouth in the morning and 1 capsule (200 mg) before bedtime. 180 capsule 5Active furosemide (Lasix) 20 MG tablet Indications:Restless leg syndromeTake 1 tablet (20 mg) by mouth Daily 30 tablet 11011/23/1215766Active hydrALAZINE (Apresoline) 25 MG tablet Take 25 mg by mouth in the morning and 25 mg before bedtime.5Active cloNIDine (Catapres) 0.2 MG tablet TAKE 1 TABLET BY MOUTH NEEDED FOR SYSTOLIC BLOOD PRESSURE GREATER THAN OR EQUAL TO 170 SYSTOLIC,UP TO THREE TIMES A DAY.5Active omeprazole (PriLOSEC) [address] capsule Indications:Hiatal hernia with gastroesophageal refluxTake 1 capsule (40 mg) by mouth in the morning. Take before meals. Do not crush or chew. 30 capsule 5Active atorvastatin (Lipitor) 40 MG tablet Indications:CAD in [place] arteryTake 1 tablet (40 mg) by mouth at bedtime 90 tablet 5Active oxybutynin XL (Ditropan XL) 10 MG 24 hr tablet Indications:Urge incontinence of urineTake 1 tablet (10 mg) by mouth Daily Do not crush, chew, or split. 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 Take with meals. Do not crush, chew, or split. 90 tablet 5Active levothyroxine (Synthroid, Levoxyl) 100 MCG tablet Indications:Adult hypothyroidismTake 1 tablet (100 mcg) by mouth Daily 30 tablet 505Active clopidogrel (Plavix) 75 MG tablet Indications:Chronic heart failure with preserved ejection fraction (HFpEF) (HCC) Take 1 tablet (75 mg) by mouth Daily 90 tablet 5Active rOPINIRole (Requip) 2 MG tablet Indications:Restless leg syndromeTake 1 tablet (2 mg) by mouth at bedtime 90 tablet 5Active traZODone (Desyrel) 150 MG tablet Indications:MDD (major depressive disorder), recurrent episode, moderate (HCC) Take 1 tablet (150 mg) by mouth at bedtime 90 tablet 5Active fludrocortisone (Florinef) 0.1 MG tablet Indications:Orthostatic hypotensionTake 2 tablets (0.2 mg) by mouth Daily 180 tablet 5Active midodrine (Proamatine) 5 MG tablet Take 5 mg by mouth in the morning and 5 mg in the evening. Take with meals. 5Active losartan (Cozaar) 25 MG tablet Take 25 mg by mouth Daily5Active carbidopa-levodopa (Sinemet) 25-100 MG tablet 1 tablet as needed Orally Two times a WeekActive albuterol HFA 90 mcg/act inhaler Indications:Chronic obstructive pulmonary disease, unspecified COPD type ([facility]) Inhale 2 puffs every 4 (four) hours if needed for shortness of breath or wheezing 18 g 5Active Vfixngvnsjv-Fdaklwiij-Snlbwe (Trelegy Ellipta) 100-62.5-25 MCG/ACT aerosol powder Indications:COPD, mild (HCC)Inhale 1 puff Daily 60 each 5Active Active Problems ProblemNoted DateDiagnosed DateAcute on chronic kxsjvy735Acute renal rqwylsv4203/21/2025Hypercoagulable state due to paroxysmal atrial fibrillation 5CKD stage 3a, GFR 45-59 ml/min01/12/2025 Assessment & Plan (01/12/2025 2:45 PM EDT): Repeat labs Iron 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 dietary iron ihlmag9612/23/2024 Assessment & Plan (04/06/2025 12:34 PM EDT): Follow with hematology Assessment & Plan (02/20/2025 2:43 PM EDT): Resume iron supplement. Follow with hematology. Assessment & Plan (12/23/2024 3:03 PM EDT): Start iron supplement. Umghjrzawbwbwqo39/09/2025 Assessment & Plan (12/23/2024 3:04 PM EDT): Protein low due to poor appetite. Start nutritional supplement. SOB (shortness of breath)12/13/2024 Assessment & Plan (04/06/2025 12:33 PM EDT): [...] ER for admission. Medicare annual wellness visit, dbpojtmwke85/23/2025 Assessment & Plan (12/07/2024 2:14 PM EDT): Due for labs. Discussed proper diet and regular aerobic exercise. Need aerobic exercise 5-6 days a week for 30 minutes at a time. Smaller portions and limit total calories. Tetanus every 10 years. Advised not to smoke. Open wound of left lower leg11/30/2024 Assessment & Plan (12/07/2024 2:14 PM EDT): [...] not working Suture removal in 10 days Ruvrwzz0806/06/2024Urge incontinence of urine04/27/20246105Qmtsdbmy77/22/2024 Assessment & Plan (04/07/2024 11:58 AM EDT): Developed diarrhea and try lomotil. Lumbar /01/2024 Assessment & Plan (01/31/2025 4:44 PM EDT): Unsteady gait and new script for rolling walker with seat to patient. Assessment & Plan (04/07/2024 11:59 AM EDT): Increased pain and refer to pain management. Assessment & Plan (03/17/2024 2:01 PM EDT): Increased pain and check x-ray. Start percocet PRN. MDD (major depressive disorder), recurrent episode, gvkyxcsd72/12/2024 Assessment & Plan (02/20/2025 2:43 PM EDT): Symptoms controlled with trazodone and continue. Assessment & Plan (03/17/2024 2:02 PM EDT): Symptoms controlled with trazodone and continue. Assessment & Plan (01/27/2024 4:52 PM EDT): Increased symptoms but declined medication. Monitor. Encounter for long-term 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 eiqtnxuodm68/06/2024enetrating ulcer of aorta01/05/2024 Assessment & Plan (01/05/2024 12:22 PM EDT): No pain and follow with vascular. Severe protein-calorie malnutrition ([facility])12/31/2023 Assessment & Plan (04/06/2025 12:34 PM EDT): Continue nutritional supplement. Assessment & Plan (01/12/2025 2:43 PM EDT): Continue nutritional supplement. Assessment & Plan (04/07/2024 11:58 AM EDT): C/o diarrhea from tube feeds and not taking as much. Try lomotil and try to increase feeds. Follow with specialists. Assessment & Plan (03/17/2024 2:03 PM EDT): Tolerating tube feeds and continue. Failure to thrive in adult12/30/2023 Assessment & Plan (01/27/2024 4:52 PM EDT): Started tube feeds and now has diarrhea. Contact surgeon and may need to adjust feeds. Assessment & Plan (01/05/2024 12:22 PM EDT): Weight down 10 pounds. Poor oral intake and need to add nutritional supplement. Increase PO intake. Adult skzvkflgoopalz07/01/2024 Assessment & Plan (01/12/2025 2:42 PM EDT): Repeat labs. Assessment & Plan (03/17/2024 2:00 PM EDT): No signs of low thyroid and repeat labs. Assessment & Plan (01/27/2024 4:50 PM EDT): Medication adjusted in hospital but did not fill. Start higher dose. Essential hypertension, gaspuy5712/16/2023 Assessment & Plan (12/16/2023 2:29 PM EDT): BP controlled and monitor PRN. Primary osteoarthritis of both knees12/16/2023AD in [place] ypfyax2212/16/2023 Assessment & Plan (04/06/2025 12:33 PM EDT): Continued SOB and heart cath. Follow up with cardiology. Assessment & Plan (02/20/2025 2:42 PM EDT): Continued SOB and stress test ordered. Follow up with cardiology. Assessment & Plan (01/12/2025 2:42 PM EDT): No chest pain and follow up with cardiology. Assessment & Plan (12/16/2023 2:28 PM EDT): No chest pain and monitor. Chronic xdhwqhetebqrof28/01/2024 Assessment & Plan (03/17/2024 2:01 PM EDT): Symptoms stable and continue flonase. Assessment & Plan (01/27/2024 4:51 PM EDT): Worsening symptoms and start flonase. Chronic heart failure with preserved ejection fraction (HFpEF)12/16/2023 Assessment & Plan (04/06/2025 12:34 PM EDT): Follow with cardiology Assessment & Plan (01/12/2025 2:42 PM EDT): Follow with cardiology Assessment & Plan (03/17/2024 2:05 PM EDT): Follow with cardiology COPD (chronic obstructive pulmonary disease)12/16/2023 Assessment & Plan (02/20/2025 2:42 PM EDT): [...] and follow with pulmonology. Cyst of left gugfuu5512/16/20232616Dizajuzdy64/01/2024 Assessment & Plan (04/07/2024 12:19 PM EDT): [...] prior esophageal dilation. Refer back to surgeon. Briglzhswojgp10/01/2024Hiatal hernia with gastroesophageal dcyneg2812/16/2023 Persistent pxpkaplw93/01/2024Orthostatic evkkyhfyebx58/01/2024 Assessment & Plan (02/20/2025 2:43 PM EDT): BP stable and continue medication. Assessment & Plan (12/13/2024 3:01 PM EDT): Continued pain and SOB. Recommend return to ER for admission. Assessment & Plan (03/17/2024 2:02 PM EDT): BP improved and continue florinef. Assessment & Plan (01/27/2024 4:52 PM EDT): BP improved and continue florinef. Paroxysmal atrial smtpgixcoayl57/01/2024 Assessment & Plan (12/23/2024 3:05 PM EDT): NSR. Bhnyszcnphp82/01/2024estless leg btoqnxeb98/01/7259Crdiltd43/01/2024llergic rhinitis due to cguswt8312/16/2023Skin lesion of left arm12/16/2023Subcutaneous mass of left lower leg12/16/2023Esophageal jukptgozr52/01/2024 Assessment & Plan (12/16/2023 2:29 PM EDT): Recurrent problems swallowing and prior esophageal dilation. Refer back to surgeon. Aortic tyvitugiaa78/08/2024 Assessment & Plan (12/16/2023 2:28 PM EDT): Recent procedure and doing well. Follow with vascular. Recurrent falls05/30/2019 Resolved Problems ProblemNoted DateDiagnosed DateResolved DateLumbosacral spondylosis without bkiyvadvmj12Scoliosis due to degenerative disease of spine in adult hlhoyii82Presence of Watchman left atrial appendage closure mbekxf31/hest pain Assessment & Plan (12/13/2024 3:01 PM EDT): Continued pain and SOB. Recommend return to ER for admission. Encounters DateTypeDepartmentCare UxupKkbvzarszlm42/17/2025 8:45 AM EDTOffice Visit [facility] [address] [place] [phone] Susie Quintero, DO Chronic obstructive pulmonary disease, unspecified COPD type (HCC); COPD, mild (HCC)05/03/2025amboo flowsheet [facility] [address] [place] [phone] Susie Quintero DO 04/07/2025Patient Outreach [facility] [address] [place] [address] Ke Marte [place] 04/07/2025Patient Outreach [facility] [address] [place] [address] Ke Marte [place] 04/07/2025[facility]phone [facility] [address] [place] [address] Douglas Will MD 04/06/2025 11:30 AM EDTOffice Visit [facility] [address] [place] [address] Douglas Will MD CAD in [place] artery (Primary Dx); Lumbar spondylosis; Iron 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 dietary iron intake; Chronic heart failure with preserved ejection fraction (HFpEF) (HCC); Severe protein-calorie malnutrition ([facility]-HCC); SOB (shortness of breath)04/06/2025amb flowsheet [facility] [address] [place] [phone] Douglas Will MD 04/03/2025Results Follow-Up [facility] [address] [place] [address] Douglas Will MD CBC auto differential, Basic metabolic panel03/31/2025External Result Encounter [facility] External Department Unsolicited Douglas Will MD 03/28/2025[facility] [address] [facility] [place] [address] Patience Arana RN 03/22/2025linisync Result Encounter [facility] External Department Unsolicited Provider, Generic External Data 03/21/2025Orders Only [facility] [address] [facility] [address] [place] [address] Douglas Will MD from Last 3 Months Immunizations ImmunizationAdministration DatesNext DueInfluenza Whole05/17/2014Influenza, High Dose Seasonal, Preservative Free04/27/2024,05/10/2020,05/27/2019Influenza, High- dose Seasonal, Quadrivalent, Preservative Free05/02/2023,04/15/2022Influenza, Mfavbygpawf52/09/2021,06/17/2019,05/17/2018,05/08/2018Pneumococcal Conjugate PCV 13011/27/2016,06/21/2015Pneumococcal Conjugate PCV 3Pneumococcal Polysaccharide IPXE9513/,08/17/2007,08/17/1998Tdap02/10/2023,06/30/2018, 06/22/2018Zoster, Rjfbivwvyrs00/07/2023,05/02/2023Zoster, live05/12/2013 Social History Tobacco UseTypesPacks/DayYears UsedDateSmoking Tobacco: NeverSmokeless Tobacco: Never Tobacco Cessation:Counseling Given: Not Answered B1300 Health LiteracyAnswerDate RecordedHow often do you need to have someone help you when you read instructions, pamphlets, or other written material from your doctor or pharmacy?Rskbbshgz17/06/2025Humiliation, Afraid, Rape, and Kick questionnaireAnswerDate RecordedWithin the last year, have you been afraid of your partner or ex-partner?No01/20/2025Within the last year, have you been humiliated or emotionally abused in other ways by your partner or ex-partner?No 01/20/2025Within the last year, have you been kicked, hit, slapped, or otherwise physically hurt by your partner or ex-partner?No01/20/2025Within the last year, have you been raped or forced to have any kind of sexual activity by your part ner or ex-partner?No01/20/2025Social Connection and Isolation PanelAnswerDate RecordedIn a typical week, how many times do you talk on the phone with family, friends, or neighbors?Three times a week01/20/2025How often do you get together with friends or relatives?Once a week01/20/2025How often do you attend hoahaoism or gnosticist services?Never01/20/2025Do you belong to any clubs or organizations such as hoahaoism groups, unions, fraternal or athletic groups, or school groups?No 01/20/2025How often do you attend meetings of the clubs or organizations you belong to?Never01/20/2025re you , , , , never , or living with a partner?Bhzqhfq0601/20/2025UDIT-CAnswerDate RecordedQ1: How often do you have a drink containing alcohol?Never01/20/2025Q2: How many drinks containing alcohol do you have on a typical day when you are drinking? Patient does not drink01/20/2025Q3: How often do you have six or more drinks on one occasion?Never01/20/2025Overall Financial Resource Strain (CARDIA)AnswerDate RecordedHow hard is it for you to pay for the very basics like food, housing, medical care, and heating?Not hard at all01/20/2025PHQ-2AnswerDate Recorded Patient Health Questionnaire-2 Fheno379[facility] [place] of Occupational Health - Occupational Stress QuestionnaireAnswerDate RecordedDo you feel stress - tense, restless, nervous, or anxious, or unable to sleep at night because your mind is troubled all the time - these days?Only a fiayae0101/20/2025Exercise Vital SignAnswerDate RecordedOn average, how many days per week do you engage in moderate to strenuous exercise (like a brisk walk)?0 days01/20/2025On average, how many minutes do you engage in exercise at this level?0 min01/20/2025Hunger Vital SignAnswerDate RecordedWithin the past 12 months, you worried that your food would run out before you got the money to buymore.Never true01/20/2025 Within the past 12 months, the food you bought just didn't last and you didn't have money to get more.Never true01/20/2025PRAPARE - TransportationAnswerDate RecordedIn the past 12 months, has lack of transportation kept you from medical appointments or from getting medications?No01/20/2025In the past 12 months, has lack of transportation kept you from meetings, work, or from getting things needed for daily living?No01/20/2025Housing Stability Vital SignAnswerDate RecordedIn the last 12 months, was there a time when you were not able to pay the mortgage or rent on time?No01/20/2025In the past 12 months, how many times have you moved where you were living?t any time in the past 12 months, were you homeless or living in a fpc (including now)?No01/20/2025 CommentsUnknownSex and Gender InformationValueDate RecordedSex Assigned at BirthNot on fileLegal CfvTrtvgg70/15/2023 7:28 PM EDTGender IdentityFemale 10/29/2022 7:28 PM EDTSexual OrientationNot on file Last Filed Vital Signs Vital SignReadingTime TakenCommentsBlood Brddjbol399/6608 11:48 AM EDT Kevmn2072 8:54 AM HYLGtwsyprkavg20.4 ??C (95.7 ??F)04/06/2025 11:48 AM EDTRespiratory Whed7572 11:48 AM EDTOxygen Ksnjtrdgsw76%05/03/2025 8:54 AM EDTInhaled Oxygen Concentration--[place]quet05.7 kg (92 lb)04/06/2025 11:48 AM EDT Atjpjd085.6 cm (5' 4 )05/03/2025 8:54 AM EDTBody Mass Index16.308 11:48 AM EDT Plan of Treatment DateTypeDepartmentCare Team (Latest Contact Info)Ukkefoanhdr14/29/2026 11:00 AM EDTOffice Visit [facility] [address] [place] [address] Susie Quintero DO [address] [place] [address] Health MaintenanceDue DateLast DoneCommentsInfluenza Vaccine (#1)04/17/2025 04/27/2024, 05/02/2023, 04/15/2022, Additional history existsPneumococcal Vaccine: 65+ UrdpeIxhtsieke51/16/2023, 11/27/2016, 06/21/2015, Additional history exists Procedures Procedure NamePriorityDate/TimeAssociated DiagnosisCommentsBASIC METABOLIC PANEL Jenlpuw9903/31/2025 11:00 AM EDT CBC WITH AUTO LICBSODWVIJQYwfaxhq45/15/2025 11:00 AM EDT MHPT CULT,XXMFECqmqrvk73/06/2025 5:05 AM EDT XR TIB/FIB LEFT 2 LJFQFhygias73/05/2025 1:17 PM EDTfrom Last 3 Months Results * (ABNORMAL) CBC auto differential (03/31/2025 11:00 AM EDT)ComponentValueRef RangeTest MethodAnalysis TimePerformed AtPathologist SignatureWHITE BLOOD CELL COUNT, WBC5.34 - 11 x10E9/LPROMEDICARED BLOOD CELL COUNT, RBC2.74(L)3.8 - 5.2 X10E12/LPROMEDICAHEMOGLOBIN7.7(L)11.7 - 15.5 g/nNVTESFEPYWCGRZHTYCTD35.0(L)35 - 47 %PROMEDICAMEAN CELL VOLUME, WSW5709 - 100 fLPROMEDICAMEAN CELL HEMOGLOBIN, MCH28.227 - 34 pgPROMEDICAMEAN CELL HEMOGLOGIN CONCENTRATION, MCHC 33.632 - 36 g/dLPROMEDICARED CELL DISTRIBUTION WIDTH, RDW18.2(H)11.5 - 15 % PROMEDICAPLATELET VDRPA985636 - 450 X10E9/LPROMEDICAMEAN PLATELET VOLUME, MPV 7.77 - 12 fLPROMEDICA% RVDCLZZFTZJ71.9%[place]% IWOCPJWSJZF81.0%[place]% MONOCYTES5.6%[place]% EOSINOPHILS0.7%[place]% BASOPHILS0.8%[place] ABSOLUTE NEUTROPHIL4.31.5 - 6.6 10*3/uLPROMEDICAABSOLUTE LYMPHOCYTE0.6(L)1.0 - 3.5 10*3/uLPROMEDICAABSOLUTE MONOCYTE0.30.0 - 0.9 10*3/uLPROMEDICAABSOLUTE EOSINOPHIL0.00.0 - 0.4 10*3/uLPROMEDICAABSOLUTE BASOPHIL0.00.0 - 0.2 10*3/uL PROMEDICADIFFERENTIAL TYPEAUTOMATED DIFFERENTIALPROMEDICAComment: ?? PERFORMED AT [address] [place] [address] Specimen (Source)Anatomical Location / LateralityCollection Method / Volume Collection TimeReceived Time03/31/2025 11:00 AM EDT03/31/2025 12:50 PM EDT Narrative Authorizing ProviderResult TypeResult StatusMarc Suman MAE BLOOD ORDERABLES Final ResultPerforming OrganizationAddressCity/State/ZIP CodePhone Number [place] * (ABNORMAL) Basic metabolic panel (03/31/2025 11:00 AM EDT)ComponentValueRef RangeTest MethodAnalysis TimePerformed AtPathologist MywkeasyzDchped916907 - 146 mmol/LPROMEDICAPotassium, Bld3.73.5 - 5.0 mmol/GTYTXDAJCDQsqyvmau497(H)98 - 109 mmol/LPROMEDICACarbon Abjjpad50(L)22 - 32 mmol/LPROMEDICAAnion Gap4(L)5 - 15 mmol/YKUSUGKUTAVKZ265 - 27 mg/dLPROMEDICACreatinine1.02(H)0.40 - 1.00 mg/dLPROMEDICAComment:METHOD TRACEABLE TO IDMS KXQWXGQYBpmqyrn191(H)65 - 99 mg/dLPROMEDICACalcium8.0(L)8.5 - 10.5 mg/pVQQKJYQATMAYIE14(L)>=60 ml/min/1.73sq.mPROMEDICAComment: eGFR not reported due to non-numeric value for Creatinine. Reported eGFR is based on the CKD-EPI 2020 equation that does not use a race coefficient. ?? PERFORMED AT [address] [place] [address] Specimen (Source)Anatomical Location / LateralityCollection Method / Volume Collection TimeReceived Time03/31/2025 11:00 AM EDT03/31/2025 12:50 PM EDT Narrative Authorizing ProviderResult TypeResult StatusMarc Suman MAE BLOOD ORDERABLES Final ResultPerforming OrganizationAddressCity/State/ZIP CodePhone Number [facility] * (ABNORMAL) MHPT CULT,URINE (03/22/2025 5:05 AM EDT)ComponentValueRef RangeTest MethodAnalysis TimePerformed AtPathologist SignatureMHPT CULT,URINESpecimen Description .CLEAN CATCH URINEMHPTMHPT CULT,URINESpecial Requests Site: Urine MHPTMHPT CULT,URINECulture KLEBSIELLA PNEUMONIAE >100,000 CFU/ML(A)MHPTMHPT CULT,URINEReport Status FINAL 03/24/2025MHPTMHPT CULT,URINE SUSCEPTIBILITY MHPTMHPT CULT,URINEOrganism KLEBSIELLA PNEUMONIAEMHPTMHPT CULT,URINEMethod ALICIA MHPTMHPT CULT,URINEAmpicillin >=32 RESISTANT(R)MHPTMHPT CULT,URINECefazolin (Non-Urine) 2 SUSCEPTIBLE(S)MHPTMHPT CULT,URINECefazolin (Urine) 2 SUSCEPTIBLE (S)MHPTMHPT CULT,URINE? Urine specific interpretations are for uncomplicated UTIs only. (S)MHPTMHPT CULT,URINECeftriaxone <=0.25 SUSCEPTIBLE(S)MHPTMHPT CULT,URINE Gentamicin <=1 SUSCEPTIBLE(S)MHPTMHPT CULT,URINELevofloxacin <=0.12 SUSCEPTIBLE (S)MHPTMHPT CULT,URINENitrofurantoin 128 RESISTANT(R)MHPTMHPT CULT,URINE Piperacillin/Tazobactam <=4 SUSCEPTIBLE(S)MHPTMHPT CULT,URINETrimethoprim/Sulfa <=20 SUSCEPTIBLE(S)MHPTSpecimen (Source)Anatomical Location / Laterality Collection Method / VolumeCollection TimeReceived Time03/22/2025 5:05 AM EDT 03/22/2025 7:01 AM EDT Narrative [facility] - 03/24/2025 12:25 AM EDT Original Ordering Provider: SHARDA NICKERSON Authorizing ProviderResult TypeResult StatusGeneric External Data Provider CLINISYNCFinal ResultPerforming OrganizationAddressCity/State/ZIP CodePhone Number [facility] MHPT * XR TIB/FIB LEFT 2 VIEW (03/21/2025 1:17 PM EDT)Anatomical RegionLaterality ModalityRadiographic Imaging Narrative Authorizing ProviderResult TypeResult StatusMarc Suman CLARKIMAnton XR PROCEDURES Final Result from Last 3 [place] [address] Care Teams Team MemberRelationshipSpecialtyStart DateEnd Date Douglas Will MD [address] [place] [address] PCP - [facility]12/16/23
--- OUTSIDE RECORDS SUMMARY | 2025-06-15 13:08 | XMS_ITS | Clinical Summary ---
Author Organization [facility] Address [address] 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 Name Role Phone Douglas Will MD Primary Care Provider + Allergies Active AllergyReactionsCriticalityNoted DateCommentsAcetaminophen-CodeineUnknown ,GI intolerance,GI Upset,Nausea Only,LabacAnuqnw29/15/2011 Other reaction(s): Abdominal Pain CobaltItching,Other,Unknown,UueaWozk24/16/2014 Other reaction(s): Welts welts CodeineGI intolerance,Unknown,Nausea Only,OhrxiNgzthn03/23/2018 Other reaction(s): nausea, severe Acetaminophen-codeine Other reaction(s): nausea, severe Acetaminophen-codeine Other reaction(s): nausea, severe Other reaction(s): Abdominal Pain DroxidopaShortness of yehlwaBtjm47/30/2020Gold Au 198Unknown,Itching,Other,Rash Low07/20/2014 Other reaction(s): Welts itching Gold KeratinateUnknown,Itching,Other,UbktRtb7512/05/2016 itching ??[place] Nickel welts Other reaction(s): Welts Other reaction(s): Intolerance itching Gold Sodium Thiomalate (Bulk)Itching,Other,BfapYwn2608/04/2014 Other reaction(s): Welts LatexItching,Other,FfojIytz98/15/2012 Patient states allergic to Latex Patient states allergic to Latex Other reaction(s): Welts Patient states allergic to Latex Levonorgestrel-Ethinyl EstradCough,Itching,Runny yocfPbgbop52/04/2016NickelHives ,Itching,Other,OjtlUlvm76/16/2014 Other reaction(s): Welts LfiykRnwem83/18/2019 Annotation - [id number]: Nickel, [place], Gold Compounding Medications MedicationSigDispense QuantityRefillsLast FilledStart DateEnd DateStatus acetaminophen (Tylenol) 500 mg tablet Take 2 tablets (1,000 mg) by mouth 3 times a day.05/06/2022ctive apixaban (Eliquis) 2.5 mg tablet Take 1 tablet (2.5 mg) by mouth twice a day.01/14/2024ctive azelastine (Astelin) 137 mcg (0.1 %) nasal spray Administer 2 sprays into each nostril 2 times a day.12/19/2022ctive calcium carbonate (Tums) 200 mg calcium chewable tablet Chew 1 tablet (500 mg) twice a day.05/06/2022ctive carbidopa-levodopa (Sinemet) 25-100 mg tablet 1 tablet.05/22/2020Active celecoxib (CeleBREX) 200 mg capsule Take 1 capsule (200 mg) by mouth twice a day.01/07/2023ctive clopidogrel (Plavix) 75 mg tablet Take 1 tablet (75 mg) by mouth once daily.12/17/2022ctive famotidine (Pepcid) 40 mg tablet 07/14/2023ctive fludrocortisone (Florinef) 0.1 mg tablet Take 1 tablet every day by oral route for 90 days.05/22/2020Active fluticasone (Flonase) 50 mcg/actuation nasal spray 2 sprays once daily.11/27/2022ctive Trelegy Ellipta 100-62.5-25 mcg blister with device Inhale 1 puff once daily.07/02/2020Active furosemide (Lasix) 20 mg tablet Take 1 tablet (20 mg) by mouth once daily.11/03/2022ctive hydrALAZINE (Apresoline) 25 mg tablet every 8 hours.11/07/2019Active levothyroxine (Tirosint) 112 mcg capsule Take 1 capsule (112 mcg) by mouth once daily.01/19/2024ctive metoprolol succinate XL (Toprol-XL) 100 mg 24 hr tablet Take 1 tablet (100 mg) by mouth once daily.06/23/2023ctive montelukast (Singulair) 10 mg tablet Take 1 tablet (10 mg) by mouth once daily.Active roflumilast (Daliresp) 500 mcg tablet Take 1 tablet (500 mcg) by mouth once daily.12/25/2022ctive traZODone (Desyrel) 150 mg tablet Take 1 tablet every day by oral route at bedtime.05/22/2020Active Active Problems ProblemNoted DateDiagnosed DateGastroesophageal reflux tdsjmjt5402/09/2025Status post insertion of percutaneous endoscopic gastrostomy (PEG) tube02/09/2025 Actinic aszlcyrrb60/16/2024omplex regional pain syndrome affecting both upper arms04/01/2024Shy-Drager uvhksqvc06/16/2024HF (congestive heart failure) 04/01/2024epressive qoeesutt73/16/2024ifficulty ifeijef8904/01/2024iverticular fhgrkwo3604/01/2024ecurrent falls04/01/2024History of cardiac pacemaker in situ 04/01/2024Obesity with body mass index 30 or uutsbwf0504/01/2024resence of stent in coronary vxstgv7304/01/2024rosthetic joint yawnmvzri45/16/2024ysphagia 03/28/2024MDD (major depressive disorder), recurrent episode, qvabbunl82/12/2024 Overview (04/01/2024): Last Assessment & Plan: Symptoms controlled with trazodone and continue. Parkinson's pzlectj8212/31/2023Failure to thrive in adult12/30/2023 Overview (04/01/2024): Last Assessment & Plan: Started tube feeds and now has diarrhea. Contact surgeon and may need to adjust feeds. Physical mnodxciucidbhu28/15/2024chalasia of phmotf2312/22/2023yst of left jihzyi6312/16/2023ersistent mmqttzig72/01/9857Uuydwznvdtp39/01/2024rimary osteoarthritis of both knees12/16/20235170Pzgwotp70/01/2024Lung mass12/14/2023ortic aneurysm of unspecified site, without ijzrqbq8211/23/2023enetrating ulcer of aorta11/23/2023 Overview (04/01/2024): Last Assessment & Plan: Recent procedure and doing well. Follow with vascular. Last Assessment & Plan: She is status post endovascular repair. Postoperative CTA shows excellent repair. She is doing wellfrom that standpoint. Last Assessment & Plan: No pain and follow with vascular. Mixed rqzsxknlkerxta48/21/2023Iron deficiency xmfgtj0304/18/2022 Overview (04/01/2024): Last Assessment & Plan: Assessment: per Blood management Algorithm. Pt. treated per Algorithm protocol. Pt. notified and assisted with scheduling per [facility] RN Restless legs axlgzcsp40/01/2022 Overview (04/01/2024): Last Assessment & Plan: Assessment: managed with Sinemet Stable. Aemjmwzbilwv65/09/2022aroxysmal atrial hgnvcysdtkew99/17/2020 Overview (04/01/2024): dx 2008 Last Assessment & Plan: Assessment: anticoagulated with warfarin Follows with cardiology Supine dennyfvleisr95/09/9611Xmyfljbxg47/09/2020 Overview (04/01/2024): Last Assessment & Plan: Assessment: AV Biotronik ( 2017) in [facility] for chronotropic incompetence last check 03/25/2022 and card ( scanned into [employer]) Essential hypertension, bnfjsq0112/19/2019 Overview (04/01/2024): Last Assessment & Plan: BP controlled and monitor PRN. Orthostatic tizonvgfyyy96/01/2018 Overview (04/01/2024): Last Assessment & Plan: BP improved and continue florinef. 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 EF 55%, 70% proximal stenosis in a moderate sized OM2 branch of the Cx, 60-70% proximal RCA stenosis. 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 so has IVC filter placed History of thromboembolism of vein12/17/2011 Overview (04/01/2024): Last Assessment & Plan: Assessment: Hx DVT s/p Pinola filter ( 2007), PE anticoagulated denies any recent episodes Ihacbxujcsrcya68/04/2012 Overview (04/01/2024): Last Assessment & Plan: No signs of low thyroid and repeat labs. Infection of prosthetic joint11/19/2011Gastro-esophageal reflux disease with ymamsapphzd98/22/2011Stage 2 moderate COPD by GOLD nafldkaxhygpbm25/27/2011 Overview (04/01/2024): Last Assessment & Plan: Mild SOB and continue inhalers. Last Assessment & Plan: Symptoms stable and continue flonase. Resolved Problems ProblemNoted DateDiagnosed DateResolved DateAcute maxillary sinusitis, qzxettubmlu43/16/202408/4Acute respiratory stemifz83 Pypjkwglmmd03ellulitis of skinllergic djkwqngn30Increased jytmsp93ysphagia, unspecified typeInflammation of sacroiliac joint03/17/2024 04/01/2024cute renal failure superimposed on chronic kidney nfwrtfw5901/14/2024 04/01/2024llergic rhinitis due to ghdqhe03Hypertensive ufyugaphl69typical chest painHypertensive ycaoqyjuv77Laceration without foreign body, left lower leg, initial xwxnnyewi06Infection of prosthetic right knee joint reast kaqnah57 Overview (04/01/2024): s/p b/l massectomies Last Assessment & Plan: Assessment: right breast cancer s/p bilateral mastectomy ( 1989,1991) and chemotherapy Centrilobular jlvwstabz12neumoniaIron wtubldibwrcgk45 Overview (04/01/2024): Last Assessment & Plan: Assessment:JAYSON, per Blood management Algorithm. Pt. treated per Algorithm protocol. Pt. notified and assisted with scheduling per [facility] RN Wibbpkujxrn64KI (acute kidney injury) Infection of peripherally inserted central venous catheter (PICC)10/28/2018 04/01/2024 Overview (04/01/2024): IMO update October 2020 version Cellulitis of leg, right. difficile refllgd6504/17/2018 04/01/20244627Yuappklifz10//iverticulitis of colon07/08/2011 04/01/2024 Social History Tobacco UseTypesPacks/DayYears UsedDateSmoking Tobacco: NeverSmokeless Tobacco: Never Tobacco Cessation:Counseling Given: Not Answered AUDIT-CAnswerDate RecordedQ1: How often do you have a drink containing alcohol? Never03/28/2024Q2: How many drinks containing alcohol do you have on a typical day when you are drinking?Patient does not drink03/28/2024Q3: How often do you have six or more drinks on one occasion?Never03/28/2024Overall Financial Resource Strain (CARDIA)AnswerDate RecordedHow hard is it for you to pay for the very basics like food, housing, medical care, and heating?Not very hard 03/28/2024HQ-2AnswerDate RecordedPatient Health Questionnaire-2 Score0 03/28/2024RAPARE - TransportationAnswerDate RecordedIn the past 12 months, has lack of transportation kept you from medical appointments or from getting medications?No03/28/2024In the past 12 months, has lack of transportation kept you from meetings, work, or from getting things needed for daily living?No 03/28/2024Housing Stability Vital SignAnswerDate RecordedIn the last 12 months, was there a time when you were not able to pay the mortgage or rent on time?No 03/28/2024In the past 12 months, how many times have you moved where you were living?t any time in the past 12 months, were you homeless or living in a jail (including now)?No03/28/2024CommentsUnknownSex and Gender InformationValueDate RecordedSex Assigned at BirthNot on fileLegal SexFemale 07/12/2022 2:36 PM ESTGender IdentityNot on fileSexual OrientationNot on file Last Filed Vital Signs Vital SignReadingTime TakenCommentsBlood Grvyfhbv247/7810/ 2:08 PM EDT Iiglg3246 2:08 PM VDALpnhmubtdjj62.3 ??C (97.3 ??F)04/01/2024 2:00 PM EDTRespiratory Nxhd879704/01/2024 2:00 PM EDTOxygen Syfytecthh48%04/01/2024 2:00 PM EDTInhaled Oxygen Concentration--Ufnarf30.2 kg (104 lb)05/30/2024 2:08 PM EDT Zelxqt769 cm (5' 3 )03/31/2024 7:27 AM EDTBody Mass Index18.42003/31/2024 7:27 AM EDT Plan of Treatment Health MaintenanceDue DateLast DoneCommentsLipid Panel1939Medicare Annual Wellness Visit (AWV)1939RSV High Risk: (Elderly (60+) or Population) (1 - 1-dose 75+ series)2014Diabetes: Hemoglobin A1C06/10/2022 06/10/20213304Jhmeowuffwvpsv70/17/202505/, 11/25/2023Influenza Vaccine (#1) 2024, 05/02/2023, 04/15/2022, Additional history existsTSH Level /reatinine Level/, 03/31/2024, 03/30/2024, Additional history existsDiabetes Awkohwafk01/, 03/31/2024, 03/30/2024, Additional history existsPotassium Level04/01/2025 04/01/2024, 03/31/2024, 03/30/2024, Additional history existsBone Density Scan /, 04/03/2023OVID-19 Vaccine ( season)2025 07/18/2023, 04/15/2022, 1DTaP/Tdap/Td Vaccines (4 - Td or Tdap) /, 06/30/2018, 06/22/2018Pneumococcal VaccineCompleted 05/02/2023, 11/27/2016, 06/21/2015, Additional history existsZoster Vaccines Jzvaplveo41/07/2023, 05/02/2023, 05/12/2013Irritable Bowel SyndromeDiscontinued 03/31/2024, 05/01/2021HIB VaccinesAged OutNo longer eligible based on patient's age to complete this topicHPV VaccinesAged OutNo longer eligible based on patient's age to complete this topicHepatitis A VaccinesAged OutNo longer eligible based on patient's age to complete this topicHepatitis B VaccinesAged OutNo longer eligible based on patient's age to complete this topicIPV Vaccines Aged OutNo longer eligible based on patient's age to complete this topic Meningococcal VaccineAged OutNo longer eligible based on patient's age to complete this topicRotavirus VaccinesAged OutNo longer eligible based on patient's age to complete this topic Medical Devices ImplantedTypeAreaManufacturerDevice IdentifierShelf Expiration DateModel / Serial / LotClarifix Case [id number] Implanted:Qty: 1 on 07/05/2020 by Graland Vincent [facility] 1CFX[facility]1000 / / [id number]:Converted from [facility]. Please see archived information for full log information.Joint KneeJoint KneeRight: Knee Procedures Procedure NamePriorityDate/TimeAssociated DiagnosisCommentsRENAL FUNCTION PANEL Pending Aovdubcjd95/16/2024 7:16 AM EDT TNUPgfjlcb36/15/2024 8:54 AM EDT Gastroesophageal reflux disease, unspecified whether esophagitis present from Last 3 Months or Most Recently Relevant to Health Maintenance Results * (ABNORMAL) Renal Function Panel (04/01/2024 7:16 AM EDT)ComponentValueRef RangeTest MethodAnalysis TimePerformed AtPathologist ZjxwmztbdEjzwbwq5342 - 99 mg/dL LAB CHEMISTRY METHOD 04/01/2024 7:50 AM [facility] SFJVbcsgs221215 - 145 mmol/L LAB CHEMISTRY METHOD 04/01/2024 7:50 AM [facility] LABPotassium3.93.5 - 5.3 mmol/L LAB CHEMISTRY METHOD 04/01/2024 7:50 AM [facility] FOFZoofwyjq40023 - 107 mmol/L LAB CHEMISTRY METHOD 04/01/2024 7:50 AM [facility] WFYVdeaiogliim1107 - 32 mmol/L LAB CHEMISTRY METHOD 04/01/2024 7:50 AM [facility] LABAnion Zhz7475 - 20 mmol/L LAB CHEMISTRY METHOD 04/01/2024 7:50 AM [facility] LABUrea Hbyrovdx48(H)6 - 23 mg/dL LAB CHEMISTRY METHOD 04/01/2024 7:50 AM [facility] LABCreatinine0.910.50 - 1.05 mg/dL LAB CHEMISTRY METHOD 04/01/2024 7:50 AM [facility] QKPiXDG20>60 mL/min/1.73m*2 LAB CHEMISTRY METHOD 04/01/2024 7:50 AM [facility] LABComment: Calculations of estimated GFR are performed using the 2020 CKD-EPI Study Refit equation without therace variable for the IDMS-Traceable creatinine methods. https://jasn.asnjournals.org/content/early//ASN.3653506892 Calcium7.7(L)8.6 - 10.3 mg/dL LAB CHEMISTRY METHOD 04/01/2024 7:50 AM [facility] LABPhosphorus2.4(L)2.5 - 4.9 mg/dL LAB CHEMISTRY METHOD 04/01/2024 7:50 AM [facility] LABComment:The performance characteristics of phosphorus testing in heparinized plasma have been validated by the individual laboratory site where testing is performed. Testing on heparinized plasma is not approved by the FDA; however, such approval is not necessary.Albumin3.63.4 - 5.0 g/dL LAB CHEMISTRY METHOD 04/01/2024 7:50 AM [facility] LABSpecimen (Source)Anatomical Location / LateralityCollection Method / VolumeCollection TimeReceived TimeBlood Venous blood specimen / UnknownVenipuncture / Rbmstkv3704/01/2024 7:16 AM EDT 04/01/2024 7:20 AM EDT Narrative Authorizing ProviderResult TypeResult StatusDaniel R Kaufman DOLAB BLOOD ORDERABLESFinal ResultPerforming OrganizationAddressCity/State/ZIP CodePhone Number [facility] [address] [place] [address] * Esophagogastroduodenoscopy (EGD) w Dilation TTS (03/31/2024 8:54 AM EDT) Anatomical RegionLateralityModalityEndoscopySpecimen (Source)Anatomical Location / LateralityCollection Method / VolumeCollection TimeReceived Time Narrative 03/31/2024 9:00 AM EDT Table formatting [...] Event Time ENDO SCOPE IN TIME 03/31/2024 ??8:22 AM Specimens ID Type Source Tests Collected by Time 1 : FOREIGN BODY IN STOMACH Tissue FOREIGN BODY(S) SURGICAL PATHOLOGY EXAM Isis Julio MD MPH 03/31/2024 0831 Procedure Location [address] [address] Referring Provider Rock Burciaga MD Procedure Provider Isis Julio MD MPH Authorizing ProviderResult TypeResult StatusSapooja Burciaga MDENDOSCOPY PROCEDURE ORDERABLESFinal Result from Last 3 Months or Most Recently Relevant to Health [place] [address] Advance Directives For more information, please contact: [phone] (Available ) * Full Code (Latest Code Status on File) Date ActivatedDate InactivatedComments03/28/2024 6:04 PMQuestionAnswerComments Plan of Care:* Code Status Discussion Completed Decision Maker:* Patient Care Teams Team MemberRelationshipSpecialtyStart DateEnd Date Douglas Will MD [address] [place] [address] PCP - GeneralFamily Medicine03/03/25
--- OUTSIDE RECORDS SUMMARY | 2025-06-15 13:25 | XMS_ITS | CCD ---
Author Organization [facility] CliniSywv Care Team Providers Care Driver/Sales Workers Name Role Phone VELIA REYNOLD S Unavailable Unavailable DARRYL, EPI F Unavailable Unavailable BRUHL, TONI Unavailable Unavailable BRUHL, TONI Unavailable Unavailable DARRYL, EPI F Unavailable Unavailable VIGESAA, REYNOLD S Unavailable Unavailable DARRYL, EPI F Unavailable Unavailable VIGESAA, REYNOLD S Unavailable Unavailable DARRYL, EPI F Unavailable Unavailable VIGESAA, REYNOLD S Unavailable Unavailable DARRYL, EPI F Unavailable Unavailable [place], Epi F Primary Care Provider [phone] [place], Epi F Primary Care Provider [phone] Darryl, Epi F Primary Care Provider [phone] RADHA, NOAH Admitting Unavailable RADHA, NOAH Attending Unavailable DARRYL, EPI Referring Unavailable DARRYL, EPI Primary Care Unavailable DARRYL, EPI Primary Care Unavailable SELF, REFERRED Referring Unavailable ANGELIQUE, ALL Attending Unavailable ANGELIQUE, ALL Admitting Unavailable Darryl, Epi F Primary Care Provider [phone] Darryl, Epi F Primary Care Provider [phone] [place], Epi F Unavailable Unavailable Unavailable Unavailable Unavailable MD Douglas Will Primary Care Provider [phone] MD Douglas Will Attending Provider Mary Rucker MD Unavailable Douglas Will Primary Care Provider [phone] DOUGLAS WILL Primary Care Physician MD Douglas Will Primary Care Provider MD Isauro Archuleta Attending Provider NADИРИНАR, DR DOUGLAS James Attending Unavailable WEST, [...] Care Provider Emma Blackman MD Unavailable [phone] Toni Moore Unavailable Douglas Will Primary Care Provider Douglas Will Primary Care Provider Douglas Will MD Primary Care Provider DOUGLAS WILL Primary Care Unavailable COOPER STEPHENS Referring Unavailable NADERER, DOUGLAS James Primary Care Unavailable ANA MARIA AMATO Referring Unavailable NADERER, DOUGLAS James Primary Care Unavailable NADERER, DOUGLAS James Primary Care Unavailable INESSA FRENCH Admitting Unavailable INESSA FRENCH Attending Unavailable SUMAN, DOUGLAS James Primary Care Unavailable ANA MARIA AMATO Referring Unavailable Mary Rucker MD Unavailable Douglas Will Primary Care Provider Jose Elias Zabala MD, Emma Padilla Unavailable Toni Moore Unavailable Douglas Will MD Primary Care Provider Douglas Will MD Primary Care Provider Douglas Will MD Primary Care Provider MD Douglas Will Primary Care Provider [phone] OLIVER Reeves Emergency Provider [phone] Sky Reeves Attending Unavailable Sky Reeves Admitting Unavailable Nilesherestephanie, Douglas Primary Care Unavailable Inessa Navas Unavailable Epi Andrews Primary Care Provider Mary Rucker MD Unavailable Lou Lacy Attending Unavailable Isauro ARCHULETA Attending Unavailable Isauro ARCHULETA Attending Unavailable Lou Lacy Attending Unavailable DOUGLAS WILL Primary Care Unavailable NGUYỄN JEAN Referring Unavailable NGUYỄN JEAN Attending Unavailable COOPER STEPHENS Referring Unavailable NADERER, DOUGLAS A Primary Care Unavailable PROVIDER, UNKNOWN Attending Unavailable PROVIDER, UNKNOWN Admitting Unavailable EMMA ZABALA Attending Unavailable DOUGLAS WILL Referring Unavailable SUMAN, DOUGLAS Primary Care Unavailable RHODA HIGGINS Attending Unavailable NADERER, DOUGLAS Referring Unavailable NADERER, DOUGLAS Primary Care Unavailable EPI ANDREWS Primary Care Unavailabl e ROCK ALANIS Consulting Unavailable Hamlet'DONNIE CONNOR Attending Unavailable DONNIE THORPE Admitting Unavailable KHAITAN, NOLAN Consulting Unavailable Naderer, Douglas A Primary Care Provider [phone] Darien CLARK, Emma Padilla Unavailable Toni Moore MD Unavailable Douglas Will MD Primary Care Provider Epi Andrews MD Primary Care Provider Douglas Will MD Primary Care Provider Douglas Will MD Primary Care Provider Douglas Will MD Primary Care Provider DOUGLAS WILL Primary Care Unavailable CAPRI MATTHEWS Attending Unavailable NILESHEREStephanie, DOUGLAS Referring Unavailable NILESHEREStephanie, DOUGLAS Primary Care Unavailable CAPRI MATTHEWS Attending Unavailable NILESHEREStephanie, DOUGLAS Referring Unavailable NILESHEREStephanie, DOUGLAS Primary Care Unavailable CLIF, MOHAMED F Attending Unavailable NADERER, DOUGLAS Referring [...] Primary Care Provider Ke Marte MA Unavailable NOLAN JULIO Attending Unavailable EPI ANDREWS Primary Care Unavailabl randy JULIO, NOLAN Attending Unavailable DONNIE THORPE Referring Unavailable EPI ANDREWS Primary Care Unavailabl randy JULIO, NOLAN Attending Unavailable EPI ANDREWS Primary Care Unavailabl e NILESHERER, DOUGLAS Primary Care Unavailable CAPRI MATTHEWS Referring Unavailable NADERER, DOUGLAS Primary Care Unavailable CLIF, GRISELDAAMED F Referring Unavailable CLIF, MOHAMED F Attending Unavailable NADERER, DOUGLAS Referring [...] WOUND CARE SERVICES (INPATIENT Consult ing Unavailable IZQUIERDO, ABEBE U Admitting Unavailable IZQUIERDO, ABEBE U Attending Unavailable CARDIOLOGY, [facility] Consulting Unavailable NADERER, DOUGLAS Primary Care Unavailable FAUSTO RAIN Referring Unavailable NADERER, DOUGLAS Primary Care Unavailable NADERER, DOUGLAS Referring Unavailable Naderer , Douglas Primary Care Provider CINDY BERNAL Attending Unavailable NADERER, DOUGLAS Attending Unavailable NADERER, DOUGLAS Attending Unavailable NADERER, DOUGLAS Attending Unavailable NADERER, DOUGLAS Attending Unavailable NADERER, DOUGLAS Attending Unavailable LURDES TONEY Attending Unavailable LURDES TONEY Attending Unavailable REYNA BRAVO Attending Unavailable REYNA BRAOV Referring Unavailable TIMOTHY PENN Attending Unavailable DOUGLAS WILL Referring Unavailable NADERER, DOUGLAS Attending Unavailable TIMOTHY PENN Attending Unavailable Suman CLARK, Douglas Primary Care Provider [phone] Atilio Wade MD Attending Provider [phone] Douglas Will MD Attending Provider [phone] DOUGLAS WILLONY Primary Care Unavailabl e ZULQARNAIN, GARDNER A Admitting Unavailab le ZULQARNAIN, GARDNER A Attending Unavailab le NADERER, DOUGLAS [place] Primary Care Unavailabl e AYOUBI, MOHAMED Referring Unavailable NADERER, DOUGLAS [place] Primary Care Unavailabl e AYOUBI, MOHAMED Referring Unavailable NADERER, DOUGLAS [place] Primary Care Unavailabl e AYOUBI, MOHAMED Referring Unavailable NADERER, DOUGLAS [place] Primary Care Unavailabl e AYOUBI, MOHAMED Referring Unavailable NADERER, [facility] Primary Care Unavailabl e AYOUBI, MOHAMED Referring Unavailable AYOUBI, MOHAMED Consulting Unavailable LARISA REARDON Attending Unavailable CARON, LARISA HARRIS Admitting Unavailable NADERER, DOUGLAS [place] Primary Care Unavailabl e KOREY ALANIS Consulting Unavailable BRUTONI SILVA Consulting Unavailable ASHISH BHANDARI Attending Unavailable NADERER, DOUGLAS [place] Primary Care Unavailabl e NADERER, DOUGLAS [place] Primary Care Unavailabl e MURIEL DEAL Referring Unavailable NADERER, DOUGLAS [place] Primary Care Unavailabl e BRUTONI SILVA Referring Unavailable NADERER, [facility] Primary Care Unavailabl e BRUTONI SILVA Referring Unavailable NADERER, [facility] Primary Care Unavailabl e AYOUBI, MOHAMED Referring Unavailable NADERER, DOUGLAS [place] Primary Care Unavailabl e TONI MOORE Referring Unavailable NADERER, DOUGLAS [place] Primary Care Unavailabl e BRUTONI SILVA Referring Unavailable NADERER, DOUGLAS CARSON Primary Care Unavailabl e BRUBRISEYDA, TONI Referring Unavailable NADERER, DOUGLAS CARSON Primary Care Unavailabl e AYOUBI, MOHAMED Referring Unavailable NADERER, DOUGLAS [place] Primary Care Unavailabl e AYOUBI, MOHAMED Referring Unavailable AYOUBI, MOHAMED Referring Unavailable NADERER, DOUGLAS CARSON Primary Care Unavailabl e AYOUBI, MOHAMED Referring Unavailable SUMAN, DOUGLAS BYRD Primary Care Unavailabl e NADERER, DOUGLAS BYRD Primary Care Unavailabl e AYOUBI, MOHAMED Referring Unavailable SUMAN, DOUGLAS BYRD Primary Care Unavailabl e Allergies Allergy ClassificationReported Allergen(s)Allergy TypeDate of OnsetReaction(s) FacilityAcetaminophen / Codeine (8 sources)Acetaminophen / CodeineDrug Itiaveu21-47-3131Xvocmg OnlyUniversity Hospitals [facility] [place] (5 sources)[place]; Translations: [COBALT]Drug Ffggxga44-20-2580HqxTynyhi Repositorycobalt gluconate (4 sources)cobalt gluconateDrug Lhrzqje08-45-7910CpwjSbwti HealthDroxidopa (5 sources)Droxidopa; Translations: [DROXIDOPA]Drug Nclikte89-05-9810Szkklepxz Of BreathUniversity Hospitals Samaritan Medical CenterGold (9 sources)Gold; Translations: [GOLD AU 198]Drug Zvnxuqp14-92-4903[facility] Latex (9 sources)Latex; Translations: [LATEX]Substance Grnbecz26-69-4344Hzrha Health Work Phone: nickel (5 sources)nickel; Translations: [NICKEL]Drug Eajtqft24-93-2938MumCjqcfb Repositorynickel sulfate (4 sources)nickel sulfateDrug Edbijcf90-69-5698FxlfwTrwwf HealthOpioid Agonists (1 source)Codeine; Translations: [CODEINE]Drug Klflglq72-27-0357XswGqlgjk RepositoryUnclassified (20 sources)LEVONORGESTREL-ETHINYL ESTRAD; Translations: [LEVONORGESTREL-ETHINYL ESTRAD]Propensity to adverse reactions to drug (disorder)50-62-7460Dvoix, Itching, Runny noseProMedica RepositoryUnclassified (5 sources)GOLD KERATINATE; Translations: [GOLD KERATINATE]Propensity to adverse reactions to drug (disorder)11-10-1585GghJtemen Repository (20 sources)Acetaminophen / Codeine; Translations: [ACETAMINOPHEN-CODEINE]Drug Kxtgpyc40-05-7219Gdsmra Only, Unknown, GI Upset, Other, GI intoleranceUniversity Hospitals Samaritan Medical Center- [place], [place] (20 sources)[place]; Translations: [COBALT]Drug Ebvodji59-78-9612Sshz, Itching, Other, UnknownBurnham, [place] (20 sources)GoldDrug Uenlupy65-99-7922Pkvrlzv, Itching, Other, Rash, GI intoleranceBurnham, [place] (20 sources)Latex; Translations: [LATEX]Propensity to adverse reactions to drug 33-53-4874Joif, Unknown (qualifier value), Itching, [place]Burn[place], [place] (20 sources)nickel sulfate; Translations: [NICKEL]Drug Buihdwq81-94-7714Kkawz, Unknown (qualifier value), Itching, Other, Unknown, RashBurn[place], [place] (20 sources)Seasonal allergyPropensity to adverse reactions to substance 23-62-8829DcvxbBurnham, [place] (20 sources)Gold-Containing Drug ProductsPropensity to adverse reactions to drug 86-62-5145VjknPynbv [place] (20 sources)Droxidopa; Translations: [DROXIDOPA]Drug Xfwzmws63-15-0296Krxvcizuh Of [place]ath[place], [place] (3 sources)Aurothiomalate; Translations: [GOLD SODIUM THIOMALATE (BULK)]Drug Sfrmizl89-09-0219Thz [facility] Repository (1 source)CobaltDrug Wjlwhct30-43-1271Crs [facility] Repository (2 sources)LatexDrug allergy (disorder)84-42-7806Krm [facility] Repository (2 sources)LeucineDrug Uulaofr06-93-3315Vlx [facility] Repository (1 source)Tylenol-Codeine #3Drug allergy (disorder)71-64-5372Cby [facility] Repository (7 sources)natural latex rubberAllergy to substance (finding)[facility] Work Phone: (7 sources)nickelDrug AllergyUnHCA [facility] Work Phone: (20 sources)Codeine; Translations: [Codeine Derivatives]Drug Oiziovm03-24-9098PY intolerance, Nausea Only, Other, Unknown, WnryvvNJ-[facility] Work Phone: (5 sources)Latex Gloves MISC; Translations: [Latex Gloves MISC]Allergy to drug (finding)[facility] Work Phone: (20 sources)CobaltDrug Ibjrfrr46-60-7758Hfvlu: See Comments, Itching, Other, Unknown, [facility] (20 sources)Gold; Translations: [GOLD AU 198]Drug Lrdleih14-38-1148Kmmvuptcvmn, Unknown, Itching, Other, [facility] (20 sources)nickelDrug Zpfilqa27-11-8817Dqhes: See Comments, Hives, Itching, Other, [facility] (20 sources)Seasonal allergy; Translations: [SEASONAL ALLERGIES]Allergy to ecrwpqlog68-89-6326Seubt: See CommentsUniversity Hospitals Health System (7 sources)gold containing compounds; Translations: [gold containing compounds] Drug allergyUnknown (qualifier value)[facility] [place] (1 source)juniper tarDrug AllergyMansfield Hospital Repository (1 source)CobaltDrug Ljziqtc42-63-0713KchemalzvGood Samaritan Hospital Repository (1 source)LatexDrug allergy (disorder)76-90-0809BsuxoxmaoGood Samaritan Hospital Repository (1 source)nickelDrug Mojytpz94-44-8472EdvehuyoeGood Samaritan Hospital Repository (1 source)Acetaminophen / CodeineDrug AllergyVisitorsCafe Other (1 source)GoldDrug AllergyVisitorsCafe Other (7 sources)Codeine; Translations: [CODEINE]Drug Erfssbn43-43-7968Zramepa [facility] 1 Repository (20 sources)OTHER; Translations: [OTHER]Propensity to adverse reactions (disorder)63-39-8364Yiiii, Other (See Comments)[facility] 1 Repository (20 sources)LatexPropensity to adverse ughtgxoju15-51-7677YermLDNV Healthcare (5 sources)AurothiomalateDrug Lhpnezv62-80-2411Zohpuoi, Other, [facility] Work Phone: (3 sources)AcetaminophenDrug Hkkthcz95-13-7439Dejmnkd ReactionGood Samaritan Hospital (20 sources)DroxidopaAllergy to pltdcxicx39-56-2782Kitvoqdhj of breathNOSaint Luke's [facility] (20 sources)Gold-Containing Drug ProductsDrug Lmzdqij39-54-7107UW intolerance, Itching, Other, Rash, UnknownNOMS Healthcare (13 sources)Environmental/SeasonalPropensity to adverse reactions to substance 21-79-4793VrtLewisgale Hospital Montgomery Medications Current Medications MedicationDrug Class(es)DatesSig (Normalized)Sig (Original)Acetaminophen (20 sources)Start: 86-69-0321jdcrojduawwav (TYLENOL) tablet 650 mgStart: 03-20-2025 End: 02-24-2876ygiu 4000 mg by mouth every twenty-four hours1,000 mg, Oral, ONCE, 1 dose, On Thu03/20/25 at 1530, Maximum dose of acetaminophen is 4000 mg from all sources in 24 hours.Start: 37-44-6652melg 1 tablet by mouth every four hours as neededacetaminophen (Tylenol) tablet 650 mgStart: 98-83-4705rqby 2 tablets by mouth three times dailyacetaminophen (Tylenol) 500 mg tablet Take 2 tablets (1,000 mg) by mouth 3 times a day. 05/06/2022 ActiveStart: 05-06-2022 take 2 tablets by mouth every eight hoursacetaminophen (TYLENOL) 500 mg tablet Take 2 tablets by mouth every 8 hours. 60 tablet 05/06/2022 ActiveStart: 46-09-8773uucmqaocpwnkp (TYLENOL) tablet 650 mgStart: 81-91-3594usnxgdxgbetst (TYLENOL) tablet 650 mgComment on above:Take 2 tablets by mouth every 8 hours. acetaminophen 325 mg / oxyCODONE hydrochloride 5 mg oral tablet (3 sources)Opioid AgonistStart: 04-06-2025 End: 39-97-1949rcvw 1 tablet by mouth four times daily as needed for pain oxyCODONE-acetaminophen (Percocet) 5-325 MG tablet Indications: Lumbar spondylosis Take 1 tablet bymouth 4 (four) times a day as needed for severe pain or moderate pain for up to 7 days 28 tablet 04/06/2025 04/13/2025 Active nvc178956 200 actuat albuterol 0.09 mg/actuat metered dose inhaler (20 sources)beta2-Adrenergic AgonistStart: 52-00-8786Fonbgxshz Sulfate (Ventolin Hfa) 90 mcg/actuation HFA aerosol inhaler Active INHALATION May 10, 2025 12:00am Complies with drug therapyStart: 10-93-3611zonu 2 puff(s) by inhalation every four hours for wheezingalbuterol HFA 90 mcg/act inhaler Indications: Chronic obstructive pulmonary disease, unspecified COPD type (HCC) Inhale 2 puffs every 4 (four) hours if needed for shortness of breath or wheezing 18 g5 05/03/2025 ActiveStart: 16-90-6388dwlb 2 puff(s) by inhalation every four hours for wheezingalbuterol HFA 90 mcg/act inhaler Indications: Chronic obstructive pulmonary disease, unspecified COPD type (HCC) Inhale 2 puffs every 4 (four) hours if needed for shortness of breath or wheezing 18 g5 05/03/2025 ActiveStart: 01-04-2025 End: 48-88-0167gteg 2 puff(s) by inhalation every four hours for wheezing albuterol HFA 90 mcg/act inhaler Indications: Chronic obstructive pulmonary disease, unspecified COPD type (HCC) Inhale 2 puffs every 4 (four) hours if needed for shortness of breath or wheezing 18 g2 01/04/2025 05/03/2025 Discontinued (Reorder)Start: 01-04-2025 End: 93-03-8138hudw 2 puff(s) by inhalation every four hours as needed for wheezingVENTOLIN HFA 108 (90 Base) MCG/ACT inhaler Inhale 2 puffs into the lungs every 4 hours as needed for Shortness of Breath or Wheezing 01/04/2025 03/21/2025 Discontinued (LIST CLEANUP)Start: 09-28-2019 End: 19-72-2489vuqzjvqea HFA (PROVENTIL HFA, VENTOLIN HFA) 90 mcg/actuation inhalerStart: 04-25-2019 End: 21-33-6901vwmngolpj (PROVENTIL) (2.5 MG/3ML) 0.083% nebulizer solution Inhale 2.5 mg into the lungs 4 times daily as needed 0 04/25/2019 06/27/2019 Discontinued (Therapy completed)take 2 puff(s) by inhalation every four hours as needed for wheezingalbuterol sulfate HFA (VENTOLIN HFA) 108 (90 Base) MCG/ACT inhaler Inhale 2 puffs into the lungs every 4 hours as needed for Wheezing or Shortness of Breath Activeaspirin 81 mg chewable tablet (20 sources)Platelet Aggregation Inhibitor, Nonsteroidal Anti-inflammatory Drug Start: 51-45-8527xnyc 1 tablet by mouth once dailyaspirin 81 MG chewable tablet Take 1 tablet by mouth daily 30 tablet 3 04/27/2025 ActiveStart: 03-21-2017 End: 65-81-4928yfit 1 tablet by mouth once dailyaspirin, enteric coated (ECOTRIN LOW STRENGTH) 81 mg EC tablet Take 1 tablet by mouth once daily. 30 tablet 2 06/05/2021 04/17/2022 Discontinued (Discontinued by another Health Care Provider)Comment on above:Take 1 tablet by mouth once daily.atorvastatin 40 mg oral tablet (20 sources)HMG-CoA Reductase InhibitorStart: 12-25-2023 End: 69-47-3213begu 1 tablet by mouth once daily at bedtimeatorvastatin (LIPITOR) 40 MG tablet Take 1 tablet by mouth nightly at bedtime. 01/12/2024 Activeatropine sulfate 0.025 mg / diphenoxylate hydrochloride 2.5 mg oral tablet (2 sources)Anticholinergic, Cholinergic Muscarinic Antagonist, Antidiarrheal Start: 04-07-2024 End: 51-79-4527fgxn 1 tablet by mouth four times daily as needed for diarrhea diphenoxylate-atropine (Lomotil) 2.5-0.025 MG tablet Indications: Diarrhea, unspecified type Take 1tablet by mouth 4 (four) times a day as needed for diarrhea for up to 15 days 60 tablet 04/07/2024 04/22/2024 Activeazelastine hydrochloride 0.137 mg/actuat metered dose nasal spray (12 sources)Histamine-1 Receptor AntagonistStart: 93-02-3627aqtn 2 spray(s) nasal route twice dailyazelastine (Astelin) 137 mcg (0.1 %) nasal spray Administer 2 sprays into each nostril 2 times a day. 12/19/2022 ActiveStart: 39-74-0572clux 2 spray(s) nasal route twice dailyAzelastine HCl 137 MCG/SPRAY SOLN 2 sprays by Each Nostril route 2 times daily 0 12/19/2022 ActiveStart: 05-22-2020 End: 07-34-8973ssxi 2 spray(s) nasal route twice dailyAzelastine HCl 137 MCG/SPRAY SOLN 2 sprays by Each Nostril route 2 times daily 0 05/22/2020 06/25/2020 Discontinued (DISCONTINUED BY ANOTHER CLINICIAN)60 actuat budesonide 0.16 mg/actuat / formoterol fumarate 0.0045 mg/actuat metered dose inhaler (18 sources)Corticosteroid, beta2-Adrenergic AgonistStart: 56-88-8830jvzw 2 puff(s) by inhalation twice daily2 puff, Inhalation, 2 TIMES DAILY, First dose on Thu04/04/20 at 0900 Rinse mouth out with water (without swallowing) after every dose.Start: 28-77-4416Akgnztczh 160-4.5 MCG/ACT Inhalation Aerosol Quantity: 10 Refills: 0 Ordered: 11-Nov-2019 DO Start : 11-Nov-2019 Active End: 22-09-7189qocz 2 puff(s) by inhalation twice dailybudesonide-formoterol (SYMBICORT) 80-4.5 mcg/actuation inhaler Inhale 2 Puffs as instructed twice da kushal. 0 06/18/2021 Discontinued (Discontinued by another Health Care Provider) take 2 puff(s) by inhalation twice dailySymbicort 160-4.5 MCG/ACT 2 puffs Inhalation Twice a day for 90 Days Not-TakingComment on above:Inhale 2 Puffs as instructed twice daily.calcium carbonate 500 mg chewable tablet (20 sources)Start: 59-55-2900pxjn 500 mg by mouth twice cagnt670 mg, oral, 2 times daily, First dose on Thu03/28/24 at 2100Start: 63-11-2539phcrmhy carbonate (Tums) 200 mg calcium chewable tablet Chew 1 tablet (500 mg) twice a day. 05/06/2022 ActiveStart: 06-20-2021 End: 29-14-2497nato 1 tablet by mouth twice dailycalcium carbonate (TUMS) 500 mg chew Take 1 tablet by mouth twice daily. 60 tablet 06/20/2021 05/06/2022 Discontinuedtake 4 tablets by mouth at bedtimeTums 500 MG Oral Tablet Chewable takes 4-6 chews at bedtime Quantity: 0 Refills: 0 Ordered: 20-Mar-2021 DO Active calcium carbonate (OS-JUAN LUIS) 1250 (500 Ca) MG chewable tablet Take 1 tablet by mouth as needed 0 ActiveComment on above:Take 1 tablet by mouth twice daily.Take 1 tablet by mouth.Take 1 tablet by mouth twice daily. Do not take while you are taking ciprofloxacin, you may resume use after course of ciprofloxacin is completecalcium chloride 0.0014 meq/ml / potassium chloride 0.004 meq/ml / sodium chloride 0.103 meq/ml / sodium lactate 0.028 meq/ml injectable solution (2 sources)Start: 07-16-6288KlpvhTLHuuw, at 125 mL/hr, CONTINUOUS, Starting on Thu04/26/25 at 1045, PACU onlyStart: 03-31-2024 End: 87-73-6679bigd 20 mL intravenously every hour20 mL/hr, intravenous, Continuous, Starting on Thu03/31/24 at 0800, Preprocedureceftaroline fosamil 600 mg injection (2 sources)Start: 06-20-2021 End: 70-96-2665htqm 600 mg intravenously every twelve hoursTEFLARO 600 MG SOLR Infuse 600 mg intravenously every 12 hours 0 06/20/2021 07/10/2021 Active celecoxib 200 mg oral capsule (20 sources)Nonsteroidal Anti-inflammatory DrugStart: 12-35-0316QequUWHT 50 MG Oral Capsule Quantity: 0 Refills: 0 Ordered: 21-Jan-2022 DO Start : 21-Jan-2022 ActiveStart: 09-18-2021 End: 50-42-6420xhdj 1 capsule by mouth twice dailyCelecoxib 200 mg capsule Active 200 MG PO Twice daily 180 May 19, 2025 11:05am Complies with drug therapyStart: 28-16-9066dwlezxvvb (CELEBREX) 200 mg capsule Take 200 mg by mouth. 0 12/18/2021 ActiveComment on above:Take 200 mg by mouth.cephalexin 250 mg oral capsule (20 sources)Cephalosporin AntibacterialStart: 03-24-2025 End: 10-55-2344uphk 1 capsule by mouth every eight hourscephALEXin (KEFLEX) 250 MG capsule Take 1 capsule by mouth every 8 hours for 18 doses 18 capsule 03/202503/30/2025 ActiveStart: 03-23-2025 End: 75-40-2117793 mg, Oral, EVERY 8 HOURS SCHEDULED (3 times per day), 21 doses, First dose on Thu03/23/25 at 1630, Last dose on Thu03/30/25 at 0600, Antimicrobial Indications: Urinary Tract Infection, UTI durationof therapy: 7 daysStart: 11-29-2024 End: 24-78-5623bdmm 1 capsule by mouth every eight hoursCephalexin 500 mg capsule Discontinued 500 MG PO Q8H 21 November 29, 2024 12:00am May 10, 2025 1:33pmchlorhexidine gluconate 40 mg/ml medicated liquid soap (8 sources)Start: 82-72-7636Lvdkgtyst 4% Soap Refill(s) 0 Start Date: 12/23/21 Status: OrderedStart: 39-39-9105Baqdhdkrq 4 % External Liquid use as a preoperative shower Quantity: 1 Refills: 0 Ordered: 29-Nov-2021 Tasia Child Start : 29-Nov-2021 Activeclobetasol propionate 0.0005 mg/mg topical ointment (20 sources)CorticosteroidStart: 37-00-9557ruhsuslqrq (Temovate) 0.05 % ointment Indications: Rash and other nonspecific skin eruption Apply to affected areas, up to twice a day when flared, do not use one the face, groin, or underarms, 30 day supply 60 g 11 05/24/2024 ActivecloNIDine hydrochloride 0.2 mg oral tablet (20 sources)Central alpha-2 Adrenergic AgonistStart: 52-87-6002fetu 0.2 mg by mouth once0.2 mg, Oral, ONCE, 1 dose, On Thu03/21/25 at 1715Start: 09-30-2024 cloNIDine (CATAPRES) 0.2 MG tablet Indications: SOB (shortness of breath) , Dysautonomia orthostatic hypotension syndrome , Dissection of aorta, unspecified portion of aorta ([facility]) , Chest discomfort , Lightheaded , Dizziness , ASHD (arteriosclerotic heart disease) , S/P angioplasty with stent , PAF(paroxysmal atrial fibrillation) ([facility]) , Chronic anticoagulation , Chronic diastolic HF (heart failure), NYHA class 3 ([facility]) , History of DVT (deep vein thrombosis) , Pacemaker , Syncope and collapse , Symptomatic bradycardia , Essential hypertension , Frequent falls , Iron deficiency anemia, unspecified iron deficiency anemia type Take 1 tablet by mouth as needed Take only if blood pressure is over 170 09/30/2024 ActiveStart: 09-30-2024 End: 09-82-9444tzsu 1 tablet by mouth once dailyClonidine Hcl 0.2 mg tablet Discontinued 0.2 MG PO Daily November 29, 2024 12:00am May 2354:24pm clopidogrel 75 mg oral tablet (20 sources)P2Y12 Platelet InhibitorStart: 81-21-4455dlme 1 tablet by mouth once dailyClopidogrel 75 mg tablet Active 75 MG PO Daily May 19, 2025 11:06am Complies with drug therapyStart: 19-84-2987feyu 75 mg by mouth once daily75 mg, Oral, DAILY, First dose on Ch[place] 04/27/25 at 0900, Until Discontinued, Recovery(Cath)Start: 26-57-9457sjmtoubjtmp 75 mg tablet clopidogrel 75 mg tablet Start Date: 12/23/21 Status: OrderedStart: 12-09-2021 End: 36-03-0046xqrwqqggwtg (PLAVIX) 75 MG tablet TAKE 1 TABLET EVERY DAY 90 tablet 3 12/16/2022 ActiveComment on above:Take 1 tablet by mouth once daily. diphenhydrAMINE (15 sources)Histamine-1 Receptor AntagonistStart: 04-24-2022 End: 85-03-1973epjnevwtgxLKRKR 50 mg injection (BENADRYL)docusate sodium 100 mg oral capsule (13 sources)Start: 70-01-9419qynu 1 capsule by mouth every twelve hours as neededdocusate sodium (COLACE) 100 mg capsule Take 1 capsule by mouth twice daily as needed for constipation. 30 capsule 1 05/06/2022 ActiveComment on above:Take 1 capsule by mouth twice daily as needed for constipation.doxycycline monohydrate 100 mg oral tablet (20 sources)Tetracycline-class DrugStart: 33-90-8570epiz 1 tablet by mouth every twelve hoursDoxycycline Monohydrate 100 MG 1 tablet Orally Twice a day for 10 days May, ActiveStart: 98-39-9698xffn 1 capsule by mouth at bedtime doxycycline monohydrate (MONODOX) 100 MG capsule Take 100 mg by mouth in the morning and at bedtime0 06/18/2022 ActiveStart: 06-04-2021 End: 90-94-7843cltnrxfggcb monohydrate 100 mg tablet Take 1 tablet by mouth twice daily. YOU WILL BEGIN DOXYCYCLINE ONCE YOUR IV ANTIBIOTICS ARE COMPLETED. 180 tablet 4 06/04/2021 05/06/2022 DiscontinuedStart: 05-21-2020 End: 34-93-7742Iwqkkdmkthq Hyclate 100 MG Oral Capsule Quantity: 180 Refills: 0 Ordered: 21-May-2020 DO Start : 21-May-2020 End : 02-Jan-2021 CompleteStart: 86-41-4799616 mg, Oral, 2 TIMES DAILY, First dose on Chana 04/03/22 at 0900, Until Discontinued Antimicrobial Indications: Other Other Abx Indication: right knee infection This medication can interact with tube feedings (TF)- obtain MD order to manage. Recommend holding TF for 1 h before and 2 h after dose. Take 1 h before or 2 h after dairy, calcium, iron, magnesium, aluminum or zinc.Start: 07-29-2018 End: 15-22-6234aitx 1 capsule by mouth twice dailydoxycycline monohydrate (MONODOX) 100 mg capsule Indications: Infection of prosthetic joint, subsequent encounter , Aftercare for long-term (current) use of antibiotics Take 1 capsule by mouth twice daily. 14 capsule 0 07/29/2018 06/01/2021 Discontinued End: 28-14-1586cbrf 100 mg by mouth at bedtimeDOXYCYCLINE PO Take 100 mg by mouth in the morning and at bedtime knee infection 0 06/30/2022 Discontinued (LIST CLEANUP)Comment on above:Take 1 tablet by mouth twice daily. YOU WILL BEGIN DOXYCYCLINE ONCE YOUR IV ANTIBIOTICS ARE COMPLETED.Take 1 capsule by mouth twice daily.0.4 ml enoxaparin sodium 100 mg/ml prefilled syringe (20 sources)Low Molecular Weight HeparinStart: 30-84-6812hhpisq 0.4 mL by subcutaneous injection once dailyenoxaparin (LOVENOX) 40 mg/0.4 mL Inject 0.4 mL subcutaneously once daily. You will continue this along with your coumadin until your INR is therapeutic (2-3). When your INR is therapeutic, stop the l ovenox and continue on your coumadin. Please follow up with your PCP or coumadin clinic after discharge to get your INR checked. 4 mL 05/07/2022 ActiveStart: 05-07-2022 End: 27-45-5024frcjxroatk (LOVENOX) 40 MG/0.4ML Inject 40 mg into the skin daily 0 05/07/2022 05/15/2022 ExpiredStart: 24-64-4648Spmeqjradg Sodium 60 MG/0.6ML Injection Solution Prefilled Syringe 0.54 ML Twice daily on 12/12, 12/13, 12/14, 12/15, and on 12/16 only once in the morning then stop Quantity: 9 Refills: 0 Ordered: 29-Nov-2021 Tasia Child Start : 29-Nov-2021 Active SIG calculated with weight: 54 kg and a target dose of 1 mg/kg/doseStart: 06-21-2021 End: 42-03-4956vgegptbofc (LOVENOX) 30 MG/0.3ML injectionStart: 06-20-2021 End: 79-86-9619hbpyky 0.3 mL by subcutaneous injection once dailyenoxaparin (LOVENOX) 30 mg/0.3 mL injection Inject 0.3 mL subcutaneously once daily. 10 Each 06/20/2021 04/17/2022 Discontinued (Course of therapy completed)Comment on above:Inject 0.3 mL subcutaneously once daily.Inject 0.4 mL subcutaneously once daily. You will continue this along with your coumadin until yourINR is therapeutic (2-3). When your INR is therapeutic, stop the lovenox and continue on your coumadin. Please follow up with your PCP or coumadin clinic after discharge to get your INR checked.[id number] 0.3 ml EPINEPHrine 1 mg/ml auto-injector (15 sources)alpha-Adrenergic Agonist, beta-Adrenergic Agonist, Catecholamine Start: 04-24-2022 End: 19-07-4043FDZBSFSfmpm 0.3 mg injection (EPIPEN)famotidine 40 mg oral tablet (20 sources)Histamine-2 Receptor AntagonistStart: 54-19-5195zuzx 10 mg by mouth once daily10 mg, Oral, DAILY, First dose (after last modification) on Thu03/24/25 at 0900, Until DiscontinuedStart: 03-21-2025 End: 35-93-6901bmxb 20 mg by mouth once daily20 mg, Oral, DAILY, First dose on Thu03/21/25 at 1800, Until DiscontinuedStart: 95-00-8516zvqm 40 mg by mouth once daily40 mg, oral, Daily, First dose on Thu03/28/24 at 2030Start: 63-05-5481oxrg 1 tablet by mouth once dailyfamotidine (PEPCID) 40 MG tablet Take 1 tablet by mouth daily 07/14/2023 ActiveStart: 64-24-6690fyyfxvfsgd (Pepcid) 40 mg tablet 07/14/2023 ActiveStart: 11-85-2797zketukkdbu (PEPCID) tablet 20 mgferrous sulfate 325 mg oral tablet (20 sources)Start: 95-04-4374rgyz 1 tablet by mouth once daily at breakfast ferrous sulfate (IRON 325) 325 (65 Fe) MG tablet Take 1 tablet by mouth daily (with breakfast) 90 tablet 1 06/12/2025 ActiveStart: 79-53-0345okbf 1 tablet by mouth three times dailyFerrous Sulfate 325 mg (65 mg iron) tablet Active 325 MG PO Three times daily May 23, 2025 12:00am Complies with drug therapyStart: 51-14-8660lzzrxoc sulfate (Fe Tabs) 325 (65 Fe) MG EC tablet Indications: Iron deficiency anemia secondary toinadequate dietary iron intake Take 1 tablet (325 mg) by mouth in the morning and 1 tablet (325 mg)at noon and 1 tablet (325 mg) in the evening. Take with meals. Do not crush, chew, or split. 90 tablet 3 12/23/2024 Activefludrocortisone acetate 0.1 mg oral tablet (20 sources)Start: 89-97-2214gfnd 0.2 mg by mouth once daily0.2 mg, Oral, DAILY, First dose on Thu03/21/25 at 1800, Until DiscontinuedStart: 05-11-2024 End: 27-35-8189obxy 2 tablets by mouth once dailyfludrocortisone (Florinef) 0.1 MG tablet Indications: Orthostatic hypotension Take 2 tablets (0.2 mg) by mouth Daily 180 tablet 3 02/20/2025 ActiveStart: 11-72-0761amed 3 tablets by mouth once dailyfludrocortisone (FLORINEF) 0.1 MG tablet Indications: ASHD (arteriosclerotic heart disease) , PAF (paroxysmal atrial fibrillation) ([facility]) , Dysautonomia orthostatic hypotension syndrome , Chronic diastolic congestive heart failure ([facility]) , History of DVT (deep vein thrombosis) , Cardiac pacemaker in situ , S/P angioplasty with stent , Essential hypertension Take 3 tablets by mouth daily 270 tablet 3 10/12/2023 ActiveStart: 04-20-2023 End: 93-46-5900irqq 1 tablet by mouth once dailyFludrocortisone 0.1 mg tablet Active 0.2 MG PO Daily May 10, 2025 1:33pm Complies with drugtherapy Start: 38-98-5606wdjb 3 tablets by mouth once dailyfludrocortisone (FLORINEF) 0.1 MG tablet Indications: ASHD (arteriosclerotic heart disease) , PAF (p aroxysmal atrial fibrillation) ([facility]) , Dysautonomia orthostatic hypotension syndrome , Chronic diastolic congestive heart failure ([facility]) , History of DVT (deep vein thrombosis) , Cardiac pacemaker in situ , S/P angioplasty with stent , Essential hypertension Take 3 tablets by mouth daily 90 tablet ActiveStart: 57-19-4493Oqyntmyltwagyrj Acetate 0.1 MG Oral Tablet Quantity: 90 Refills: 0 Ordered: 22-May-2020 DO Start : 22-May-2020 ActiveStart: 04-04-2020 End: 40-63-3000revyjspcxpcqnad (FLORINEF) 0.1 mg tablet Take by mouth. 05/11/2024 ActiveComment on above:Take 0.1 mg by mouth once daily.30 actuat fluticasone furoate 0.1 mg/actuat / umeclidinium 0.0625 mg/actuat / vilanterol 0.025 mg/actuat dry powder inhaler (20 sources)Anticholinergic, Corticosteroid, beta2-Adrenergic AgonistStart: 77-90-7546qlsx 1 puff(s) by inhalation once mahjwYbdsztxvphn-Rpxffofhr-Fvpqpn (Trelegy Ellipta) 100-62.5-25 MCG/ACT aerosol powder Indications: COPD, mild ([facility]) Inhale 1 puff Daily 60 each 5 05/03/2025 ActiveStart: 78-53-9510ihmo 1 puff(s) by inhalation once irqncDdznwqljnrc-Mwmosrowx-Cuyjpw (Trelegy Ellipta) 100-62.5-25 MCG/ACT aerosol powder Indications: COPD, mild (HCC) Inhale 1 puff Daily 60 each 5 05/03/2025 ActiveStart: 03-03-2025 End: 85-45-6294tyrv 1 puff(s) by inhalation once dailyTrelegy Ellipta 100-62.5-25 MCG/ACT aerosol powder Indications: COPD, mild (HCC) INHALE 1 PUFF ONCEDAILY 60 each 03/03/2025 05/03/2025 Discontinued (Reorder)Start: 04-20-2023 Suduwijrrxn-Ekzqftqyt-Jaxcbzeh (Trelegy Ellipta) 100-62.5-25 mcg blister with device Active 1 INH INHALATION Daily April 20, 2023 12:00am Complies with drug therapyStart: 78-72-7653Egwwurmamtj-Umeclidin-Vilanter (Trelegy Ellipta) 100-62.5-25 mcg blister with device Active 1 INH INHALATION Daily April 20, 2023 12:00amStart: 57-77-8159apmw 1 puff(s) by mouth once daily1 puff, Inhalation, DAILY, First dose on [facility]ana 03/23/25 at 0900, Until Discontinued, Rinse mouth out with water (without swallowing) after every dose.Trelegy Ellipta 100-62.5-25 MCG/ACT Inhalation for 30 Days ActiveComment on above:Inhale 1 Puff as instructed once daily. 14 actuat fluticasone furoate 0.1 mg/actuat / vilanterol 0.025 mg/actuat dry powder inhaler (9 sources)Corticosteroid, beta2-Adrenergic AgonistStart: 70-16-9554jqds 1 puff(s) by inhalation in the morningfluticasone furoate-vilanteroL (BREO ELLIPTA) 100-25 mcg/dose blister with device Indications: CARISA (obstructive sleep apnea) , Shortness of breath , Chronic bronchitis (CMS-HCC) Inhale 1 puff in the morning. 28 each 01/20/2024 Activetake 1 puff(s) by inhalation once daily fluticasone furoate-vilanterol (BREO ELLIPTA) 100-25 MCG/ACT inhaler Inhale 1 puff into the lungs daily Viicau44 actuat formoterol fumarate 0.005 mg/actuat / mometasone furoate 0.2 mg/actuat metered dose inhaler (1 source)Corticosteroid, beta2-Adrenergic AgonistStart: 99-33-4130myqsvhvskq- formoterol (DULERA) 200-5 MCG/ACT inhaler 2 puffHibiclens 4% Soap (1 source)Start: 08-77-2667Bboansctu 4% Soap Refill(s) 0 Start Date: 12/23/21 Status: Orderedhydrocortisone 100 mg injection (15 sources)CorticosteroidStart: 04-24-2022 End: 39-78-8146gpsrajuraxzadt sodium succinate (PF) 100 mg injection (Solu-CORTEF)labetalol hydrochloride 5 mg/ml injectable solution (2 sources)beta-Adrenergic BlockerStart: 50-07-667728 mg, IntraVENous, EVERY 15 MIN PRN, 2 doses, Starting on Thu04/26/25 at 1027, Until Discontinued,High Blood Pressure, for SBP greater than 180 mmHg for 2 consecutive measurements taken from different sites., Inform provider if SBP is still greater than 180 mmHg, 10 minutes after second antihypertensive dose is administered., PACU onlyStart: 20-67-5699ipzw 10 mg intravenously every four hours as kdwuck09 mg, intravenous, Every 4 hours PRN, SBP >100mmHg, Starting on Thu03/28/24 at 2015, Give at rate of 10 mg/min.levothyroxine sodium 0.1 mg oral tablet (20 sources)l-ThyroxineStart: 45-84-2232fzty 112 ug by mouth once gfeve885 mcg, oral, Daily RT, First dose on Thu03/29/24 at 0700Start: 01-19-2024 End: 63-61-5158jsga 1 capsule by mouth once dailylevothyroxine (Tirosint) 112 mcg capsule Take 1 capsule (112 mcg) by mouth once daily. 01/19/2024 Active Start: 04-04-2020 End: 32-58-7762akly 1 tablet by mouth once dailyLevothyroxine 100 mcg tablet Active 100 MCG PO Daily May 19, 2025 11:07am Complies with drug therapy Start: 28-37-8103zxhobfeqohjbi 100 mcg (0.1 mg) Tab Refills(s) 0 Start Date: 12/23/21 Status: OrderedLevothyroxine Sodium 100 MCG Oral Tablet Quantity: 0 Refills: 0 Ordered: 13-Feb-2021 DO ActiveLevothyroxine Sodium 100 MCG Oral Tablet Quantity: 0 Refills: 0 Ordered: 20-Jun-2020 DO Active End: 24-17-6589bsea 1 tablet by mouth once dailylevothyroxine (SYNTHROID) 125 MCG tablet Take 125 mcg by mouth Daily 0 04/05/2019 Discontinued (DOSE ADJUSTMENT)Comment on above:Take 100 mcg by mouth.losartan potassium 25 mg oral tablet (20 sources)Angiotensin 2 Receptor BlockerStart: 57-87-9574jnat 1 tablet by mouth once dailylosartan (COZAAR) 25 MG tablet Take 1 tablet by mouth daily 30 tablet 3 05/30/2025 ActiveStart: 05-23-2025 End: 13-40-9514cjwl 1 tablet by mouth once dailyLosartan 25 mg tablet Discontinued 25 MG PO Daily May 23, 2025 12:00am May 24, 2025 1:39pm Start: 90-39-7136lgau 1 tablet by mouth once dailylosartan (COZAAR) 25 MG tablet Take 1 tablet by mouth daily 30 tablet 3 03/25/2025 ActiveStart: 09-07-2024 losartan (Cozaar) 50 MG tablet 09/07/2024 ActiveStart: 80-68-6367nrgh 100 mg by mouth once mg, Oral, DAILY, First dose on Thu04/04/20 at 0900 Hold for SBP <110Start: 91-50-1497Xcturdyu Potassium 100 MG Oral Tablet Quantity: 90 Refills: 0 Ordered: 28-Mar-2020 DO Start : 28-Mar-2020 ActiveStart: 02-04-2019 End: 12-98-8844uxnb 1 tablet by mouth once dailyLosartan Potassium 100 MG Oral Tablet TAKE 1 TABLET DAILY. Quantity: 0 Refills: 0 Ordered: 28-Mar-2020 DO Start : 28-Mar-2020 ActiveStart: 12-01-2018 End: 13-49-5018rzbirhsq (COZAAR) 50 MG tablet Indications: Dysautonomia orthostatic hypotension syndrome , Chronicdiastolic congestive heart failure (HCC) , History of DVT (deep vein thrombosis) , Cardiac pacemaker in situ , ASHD (arteriosclerotic heart disease) Take 1 tablet daily. Hold if SBP 90 tablet 3 04/10/2021 07/08/2021 Discontinued (Therapy completed)Comment on above:Take 50 mg by mouth.meclizine hydrochloride 25 mg oral tablet (17 sources)AntiemeticStart: 06-06-2024 End: 63-93-5147yevk 1 tablet by mouth four times daily as neededmeclizine (ANTIVERT) 25 mg tablet Take 1 tablet (25 mg total) by mouth 4 (four) times a day as needed. 06/06/2024 Jrjhnp21 hr metoprolol succinate 100 mg extended release oral tablet (20 sources)beta-Adrenergic BlockerStart: 03-28-2024 End: 12-27-199425 mg, intravenous, Once, On Thu03/28/24 at 2230, For 1 dose Start: 22-67-5656jpgk 100 mg by mouth once mg, oral, Daily, First dose on Thu03/28/24 at 2030, Do not crush or chew.Start: 06-23-2023 End: 72-16-3822uuep 1 tablet by mouth once dailymetoprolol succinate (TOPROL XL) 100 MG extended release tablet Take 1 tablet by mouth daily 90 tablet 3 06/23/2023 ActiveStart: 04-07-2023 End: 36-59-6569mbdv 1 tablet by mouth once dailyMetoprolol Succinate 50 mg tablet extended release 24 hr Discontinued 50 MG PO Daily April 12:00am November 29, 2024 6:46pmtake 1 capsule by mouth every twenty-four hours in the morningmetoprolol succinate 100 mg capsule,vik,ER 24hr Take 100 mg by mouth in the morning. Activemidodrine hydrochloride 5 mg oral tablet (20 sources)alpha-Adrenergic AgonistStart: 05-23-2025 End: 61-39-1926neab 1 tablet by mouth once daily at bedtimeMidodrine 5 mg tablet Active 5 MG PO Three times daily 90 May 24, 2025 2:04pm do not give last dose of day after 6PM or within 4 hrs of bedtime Complies with drug therapy Start: 52-63-6366utjz 1 tablet by mouth twice daily at mealtimemidodrine (PROAMATINE) 5 MG tablet Take 1 tablet by mouth 2 times daily (with meals) 90 tablet 3 03/24/2025 ActiveStart: 03-23-2025 End: 89-68-8794khui 2.5 mg by mouth twice daily at mealtime2.5 mg, Oral, 2 TIMES DAILY WITH MEALS, First dose on [facility] 03/23/25 at 0900, Until Discontinued, Do not give after 1800 or within 4 hrs of bedtime.Start: 05-09-2020 End: 38-52-3751yjit 1 tablet by mouth three times dailymidodrine (PROAMATINE) 2.5 MG tablet Take 1 tablet by mouth 3 times daily 90 tablet 3 05/09/202004/2020 Discontinued (DISCONTINUED BY ANOTHER CLINICIAN)24 hr mirabegron 25 mg extended release oral tablet (1 source)beta3-Adrenergic AgonistStart: 06-48-2380rgsp 1 tablet by mouth once dailyMyrbetriq 25 mg oral tablet, extended release 25 mg = 1 tab(s), Oral, Daily, # 30 tab(s), Refills(s) 6, Pharmacy: [id number], 161, cm, 06/19/23 13:26:00 EDT, Height/Length Dosing, 51.5, kg, 06/19/23 13:26:00 EDT, Weight Dosing Start Date: 06/19/23 Status: Orderedmontelukast 10 mg oral tablet (20 sources)Leukotriene Receptor AntagonistStart: 30-75-2713lvcibleekww Daily Start Date: 02/02/23 Status: OrderedStart: 18-75-9772XBDSPCKVBLO SODIUM PO Daily 02/02/2023 ActiveStart: 12-19-2022 End: 78-28-7383bhpb 1 tablet by mouth once daily at bedtimemontelukast (SINGULAIR) 10 MG tablet Take 1 tablet by mouth nightly at bedtime. 12/19/2022 ActiveMultiple Vitamins-Minerals (THERAPEUTIC MULTIVITAMIN-MINERALS) tablet (2 sources)take 1 tablet by mouth once dailyMultiple Vitamins-Minerals (THERAPEUTIC MULTIVITAMIN-MINERALS) tablet Take 1 tablet by mouth daily 0 Active naloxone 0.4 mg in 10 mL sodium chloride syringe (1 source)Start: 66-90-3007YvjlyXKAfhr, PRN, Opioid Reversal, Starting on Thu04/26/25 at 1027, PRN if respiratory rate is lessthan 6/min and patient is difficult to arouse [...] as administered previously). Concentration 0.04 mg/mL, PACU onlynebivolol 20 mg oral tablet (10 sources)Start: 14-88-5478gwpe 1 mg by mouth once dailynebivolol 20 mg oral tablet mg tab(s), Oral, Daily Start Date: 02/02/23 Status: OrderedStart: 47-01-0104fwpy 1 tablet by mouth once dailynebivolol (BYSTOLIC) 5 MG tablet Take 1 tablet by mouth daily 0 11/05/2022 Activeomeprazole 40 mg delayed release oral capsule (20 sources)Proton Pump InhibitorStart: 72-43-8320ofcr 1 capsule by mouth once dailyOmeprazole 40 mg capsule,delayed release(DR/EC) Active 40 MG PO Daily May 23, 2025 12:00am Complies with drug therapyStart: 53-39-2385fsuu 1 capsule by mouth before mealtimeomeprazole (PriLOSEC) [address] capsule Indications: Hiatal hernia with gastroesophageal reflux Take1 capsule (40 mg) by mouth in the morning. Take before meals. Do not crush or chew. 30 capsule 3 ActiveStart: 33-55-2155tppz 1 capsule by mouth once daily before breakfastomeprazole (PRILOSEC) 40 MG delayed release capsule Take 40 mg by mouth every morning (before breakfast) 0 12/26/2020 ActiveStart: 36-37-7665xqho 1 capsule by mouth once daily 30 minutes before mealtimeOmeprazole 20 MG Oral Capsule Delayed Release TAKE ONE DAILY 30 MINUTES BEFORE MEALS Quantity: 30 Re fills: 1 Ordered: 20-Jun-2020 Garland Vincent MD Start : 20-Jun-2020 Active Comment on above:Take 40 mg by mouth once daily.ondansetron (ZOFRAN-ODT) disintegrating tablet 4 mg (3 sources)Start: 50-79-9755bjqhizhtfru (ZOFRAN-ODT) disintegrating tablet 4 mg Start: 91-13-5821mknaggczoys (ZOFRAN-ODT) disintegrating tablet 4 mgStart: 10-42-8299kvggjxcrtxj (ZOFRAN-ODT) disintegrating tablet 4 mgondansetron ODT (Zofran-ODT) disintegrating tablet 4 mg (1 source)Start: 33-64-5784wrsg 1 tablet by mouth every six hours as needed ondansetron ODT (Zofran-ODT) disintegrating tablet 4 mg24 hr oxybutynin chloride 10 mg extended release oral tablet (20 sources)Cholinergic Muscarinic AntagonistStart: 88-00-4336bmyn 10 mg by mouth once daily10 mg, Oral, DAILY, First dose on Thu03/21/25 at 1800, Until Discontinued, Do not crush or break.Start: 07-03-2024 End: 40-60-6533jbrm 1 tablet by mouth every twenty-four hoursOxybutynin Chloride 10 mg tablet extended release 24hr Discontinued MG PO November 29, 2024 12:00am May 23, 2025 4:24pmStart: 04-27-2024 End: 80-00-5046eyij 1 tablet by mouth once dailyOxybutynin Chloride 10 mg tablet extended release 24hr Active 10 MG PO Daily May 23, 2025 4:23pm Complies with drug therapyStart: 57-83-5400znas 1 tablet by mouth once daily at bedtime oxybutynin (DITROPAN) 5 mg tablet Take 5 mg by mouth daily at bedtime. 04/04/2022 ActiveComment on above:Take 5 mg by mouth daily at bedtime.oxyCODONE hydrochloride 5 mg oral tablet (8 sources)Opioid AgonistStart: 37-29-8482pffa 1 tablet by mouth every six hours as needed5 mg, oral, Every 6 hours PRN, pain moderate (4-6), first line, Starting on Thu03/28/24 at 1854, Ifordered PRN for pain, nurse is permitted to administer this medication for higher pain scores basedon patient preference? YesStart: 67-74-5388cmxt 1 tablet by mouth every six hours as bitgar47 mg, oral, Every 6 hours PRN, pain severe (7-10), first line, Starting on Thu03/28/24 at 1854, Ifordered PRN for pain, nurse is permitted to administer this medication for higher pain scores basedon patient preference? YesStart: 03-31-2022 End: 17-52-1899zplj 1 tablet by mouth every eight hours as needed for pain oxyCODONE IR (ROXICODONE) 5 mg immediate release tablet Indications: S/P revision of total knee, right Take 1 tablet by mouth every 8 hours as needed for pain. for pain. 10 tablet 0 03/31/2022 03/31/2022 DiscontinuedStart: 06-21-2021 End: 39-05-6457fjxTGHOBZ (ROXICODONE) 5 MG immediate release tablet 5 mg every 6 hours as needed. 0 06/21/2021 01/01/2022 Discontinued (Therapy completed) Comment on above:Take 1 tablet by mouth every 8 hours as needed for pain. for pain.oxygen (O2) therapy (2 sources)Start: 82-32-3703wszlutwmbo, Continuous PRN - O2/gases, other, Starting on Thu03/31/24 at 0906, Recovery (only), Device: Nasal Cannula, Rate in liters per minute: Other, Custom Value: 1-6 LPM, Keep O2 Sat Above: 92%Start: 06-61-3554nutfeppvuh, Continuous PRN - O2/gases, other, Starting on Thu03/29/24 at 0904, Device: Nasal Cannula, Rate in liters per minute: 2 LPM, Keep O2 Sat Above: 90%polyethylene glycol 3350 11724 mg powder for oral solution (5 sources)Osmotic LaxativeStart: 62-64-9116Rjnho: 03-28-2024 End: 43-04-4965vsij 17 g by mouth every twenty-four hours as rjwqly67 g, oral, Daily PRN, constipation, Starting on Thu03/31/24 at 1030, Bowel Regimen - for prevention of constipation.Start: g, Oral, DAILY PRN, Starting on Thu04/02/22 at 1558, Until Discontinued, Constipation First linetherapy for constipationStart: 83-06-2294dwfbnuomaujt glycol (GLYCOLAX) packet 17 gpotassium nitrate 0.05 mg/mg / sodium fluoride 0.011 mg/mg toothpaste (20 sources)Start: 12-03-5638tbvrvj fluoride-pot nitrate 1.1-5 % paste 04/22/2024 ActiveStart: 04-22-2024 End: 04-28-7671xhtmha fluoride-pot nitrate 1.1-5 % paste USE A PEA SIZE AMOUNT TWICE DAILY IN PLACE OF REGULAR TOOTHPASTE 04/22/2024 ActiveStart: 05-30-2022 SODIUM FLUORIDE 5000 SENSITIVE 1.1-5 % GEL daily 0 05/30/2022 Activeroflumilast 0.5 mg oral tablet (20 sources)Phosphodiesterase 4 InhibitorStart: 94-90-0473Xnxpewvn 500 mcg oral tablet Refills(s) 0 Start Date: 12/23/21 Status: OrderedStart: 73-66-0358vcdo 1 tablet by mouth once dailyRoflumilast 500 mcg tablet Active 500 MCG PO Daily May 10, 2025 12:00am Complies with drug therapyComment on above:Take 500 mcg by mouth once daily.rOPINIRole 1 mg oral tablet (20 sources)Nonergot Dopamine AgonistStart: 69-74-7293nptq 2 tablets by mouth once daily at bedtimeRopinirole 1 mg tablet Active 2 MG PO Daily at bedtime May 10, 2025 1:35pm Complies with drug therapyStart: 89-55-1336nmmp 2 mg by mouth once daily2 mg, Oral, NIGHTLY, First dose on Thu03/21/25 at 2100, Until DiscontinuedStart: 12-07-2024 End: 70-01-3719kwrj 2 tablets by mouth at bedtimerOPINIRole (Requip) 1 MG tablet Indications: Restless leg syndrome Take 2 tablets (2 mg) by mouth at bedtime 30 tablet 5 12/07/2024 01/30/2025 Discontinued (Reorder)Start: 46-87-2923cbor 1 tablet by mouth once dailyrOPINIRole (REQUIP) 2 MG tablet Take 1 tablet by mouth nightly 06/06/2024 ActiveStart: 06-06-2024 End: 85-56-1886iotk 1 tablet by mouth once daily at bedtimeRopinirole 1 mg tablet Discontinued 1 MG PO Daily at bedtime November 29, 2024 12:00am May 10, 2025 1:38pm72 hr scopolamine 0.0139 mg/hr transdermal system (1 source)Anticholinergicscopolamine (TRANSDERM-SCOP) transdermal patch Place 1 patch onto the skin every 72 hours 0 Active5 ml sodium chloride 9 mg/ml injection (20 sources)Start: 05-16-2025 End: 72-97-9557kfpe 100 mL intravenously every hour as needed, then take 20 mL intravenously every hour as needed5-250 mL/hr, IntraVENous, PRN, If patient receiving piggyback infusions and maintenance fluids are not ordered OR KVO fluids to protect IV site/ prevent frequent line interruptions/ long duration, Starting on Thu05/16/25 at 1002, For 18 hours, For piggyback infusion, administer at same rate as piggyback for a total of 25 mL. Enter 25 mL into dose field and piggyback rate into rate field of order.If piggyback is infusing at a rate less than 100 mL/hr, enter 25 mL into dose field and 100 mL/hr into rate field of order. For KVO fluids, enter rate of 20 mL/hr or less into rate field of order.Start: 05-16-2025 End: -40 mL, IntraVENous, PRN, Starting on Thu05/16/25 at [...] mL Midline or Central Line = 20 mL/lumenStart: 05-09-2025 End: 61-89-0595ijkn 100 mL intravenously every hour as needed, then take 20 mL intravenously every hour as needed5-250 mL/hr, IntraVENous, PRN, If patient receiving piggyback infusions and maintenance fluids are not ordered OR KVO fluids to protect IV site/ prevent frequent line interruptions/ long duration, Starting on Thu05/09/25 at 0944, For 18 hours, For piggyback infusion, administer at same rate as piggyback for a total of 25 mL. Enter 25 mL into dose field and piggyback rate into rate field of order.If piggyback is infusing at a rate less than 100 mL/hr, enter 25 mL into dose field and 100 mL/hr into rate field of order. For KVO fluids, enter rate of 20 mL/hr or less into rate field of order.Start: 05-09-2025 End: -40 mL, IntraVENous, PRN, Starting on Thu05/09/25 at [...] mL Midline or Central Line = 20 mL/lumenStart: 04-26-2025 End: 85-17-1117GyxcbHFXoru, at 75 mL/hr, CONTINUOUS, Starting on Thu04/26/25 at 1030, For 2 hours, Recovery(Cath)Start: 48-58-6872YdyciJMZqnu, at 5-250 mL/hr, PRN, if patient receiving [...] 100 mL/hr into rate field of order., Recovery(Cath)Start: -40 mL, IntraVENous, EVERY 12 HOURS SCHEDULED (2 times per day), First dose on Thu04/26/25 at 1045, Until Discontinued, For Line Patency: Peripheral IV = 5 mL; Midline or Central Line = 10 mL/lumen.If following IV push medication, administer flush at same rate as the IV push. Flush volume is determined by type of infusion therapy being given. For non-viscous solutions use: Peripheral IV = 5 mL Midline or Central Line = 10 mL/lumen For viscous solutions (i.e. blood components, parenteral nutrition, contrast media, or after obtaining blood sample) use: Peripheral IV = 10 mL Midline or CentralLine = 20 mL/lumen, PACU onlyStart: -40 mL, IntraVENous, PRN, Starting on Thu04/26/25 at [...] For viscous solutions (i.e. blood components, parenteral nutrition,contrast media, or after obtaining blood sample) use: Peripheral IV = 10 mL Midline or Central Line= 20 mL/lumen, Recovery(Cath)Start: -40 mL, IntraVENous, EVERY 12 HOURS SCHEDULED (2 times per day), First dose on Thu03/21/25 at 2100,Until Discontinued, For Line Patency: Peripheral IV = [...] mL Midline or Central Line = 20 mL/lumenStart: 69-45-0917Qncet: 03-21-2025 End: 06-86-0983ZbminFQLzes, at 75 mL/hr, CONTINUOUS, Starting on Thu03/21/25 at 1800Start: 04-24-2022 End: 12-96-5745LzLn 0.9% iv infusionStart: 04-24-2022 End: 76-37-7730CuHp (PF) 0.9% 10-20 mL injectionStart: 97-12-2562ovca 1 dose intravenously twice daily5-40 mL, IntraVENous, EVERY 12 HOURS SCHEDULED (2 times per day), First dose on Thu04/02/22 at 2100, Until Discontinued For Line Patency: Peripheral IV = 5 mL; Midline or Central Line = 10 mL/lumen.&a mp;nbsp; If following IV push medication, administer flush at same rate as the IV push. Flush volume is determined by type of infusion therapy being given. For non-viscoussolutions use: Peripheral IV = 5 mL Midline or Central Line = 10 mL/lumen For viscous solutions (i.e. blood components, parenteral nutrition, contrast media, or after obtaining blood sample) use: Peripheral IV = 10 mL Midline or Central Line = 20 mL/lumenStart: 04-02-2022 End: 08-96-8260AynfmQBFrug, at 75 mL/hr, CONTINUOUS, Starting on Thu04/02/22 at 1630Start: 66-40-1132dgei 25 mL intravenously every hour as ebyqxp58 mL, IntraVENous, at 100 mL/hr, PRN, If patient receiving piggyback infusions without ordered maintenance IV fluids or with frequent/long duration piggyback infusions, Starting on Thu04/02/22 at 1558 Administer at the same rate as the piggyback being infused.Start: 70-62-2426wylo 5-40 mL intravenously once as needed5-40 mL, IntraVENous, PRN, Starting on Thu04/02/22 at [...] mL Midline or Central Line = 20 mL/lumenStart: 82-40-5444oxkdii chloride flush 0.9 % injection 10 mLthiamine 100 mg oral tablet (1 source)Start: 03-29-2024 End: 83-65-0721290 mg, g-tube, Daily, First dose on Thu03/29/24 at 1230, For 10 doses10 actuat tiotropium 0.0025 mg/actuat inhalation spray (18 sources)AnticholinergicStart: 45-69-9763wrjhbfkrmq (SPIRIVA RESPIMAT) 2.5 MCG/ACT inhaler 2 puffStart: 74-87-6191pcia 1 puff(s) by inhalation twice daily tiotropium (SPIRIVA RESPIMAT) 2.5 MCG/ACT AERS inhaler Inhale 1 puff into the lungs 2 times daily Patient can NOT afford 1 Inhaler 2 04/06/2020 ActiveStart: 51-87-4158xeemsfwusm (SPIRIVA RESPIMAT) 2.5 MCG/ACT inhaler 1 puffStart: 07-43-2840botz 2 puff(s) by inhalation once dailytiotropium (SPIRIVA RESPIMAT) 2.5 MCG/ACT AERS inhaler Inhale 2 puffs into the lungs daily Patient can NOT afford 0 12/05/2016 ActiveStart: 37-02-8044bgknuyywpf (SPIRIVA RESPIMAT) 2.5 MCG/ACT AERS inhaler 2 inhalations once daily -NOT TAKING BECAUSECAN'T AFFORD 0 12/05/2016 ActiveStart: 12-05-2016 End: 44-71-9312wceh 2 puff(s) by inhalation once dailytiotropium (SPIRIVA RESPIMAT) 2.5 MCG/ACT AERS inhaler Inhale 2 puffs into the lungs daily Patient c an NOT afford 0 12/05/2016 04/06/2020 Discontinued (REORDER)Spiriva Respimat 2.5 MCG/ACT Inhalation Aerosol Solution Quantity: 0 Refills: 0 Ordered: 20-Jun-2020 DO Activetiotropium (Spiriva Respimat) 2.5 mcg/actuation inhaler 2 puff (1 source)Start: 62-38-0240roxmxlecjk (Spiriva Respimat) 2.5 mcg/actuation inhaler 2 pufftraMADol hydrochloride 50 mg oral tablet (6 sources)Opioid AgonistStart: 05-22-2022 End: 77-30-5176lllb 1-2 tablets by mouth every eight hours as needed for pain traMADol (ULTRAM) 50 mg tablet Indications: S/P revision of total knee, right Take 1-2 tablets by mouth every 8 hours as needed for pain for up to 7 days. 42 tablet 0 05/22/2022 05/29/2022 ActiveStart: 05-06-2022 End: 02-30-2253rvvk 1 tablet by mouth once daily as neededtraMADol (ULTRAM) 50 MG tablet Take 50 mg by mouth daily as needed. 0 05/06/2022 06/04/2022 Disconti nued (Therapy completed)Start: 05-06-2022 End: 05-55-9416rltt 1-2 tablets by mouth every six hours as needed for pain traMADol (ULTRAM) 50 mg tablet Indications: Infection associated with internal right knee prosthesis, subsequent encounter , Post-op pain Take 1-2 tablets by mouth every 6 hours as needed for pain for up to 7 days. 42 tablet 0 05/06/2022 05/13/2022 ActiveComment on above:Take 1-2 tablets by mouth every 6 hours as needed for pain for up to 7 days.Take 1-2 tablets by mouth every 8 hours as needed for pain for up to 7 days.traZODone hydrochloride 150 mg oral tablet (20 sources)Serotonin Reuptake InhibitorStart: 31-60-1785doxe 50 mg by mouth once daily as exlfks31 mg, Oral, NIGHTLY PRN, Starting on Thu03/21/25 at 2247, Until Discontinued, SleepStart: 03-34-0223fniv 150 mg by mouth once vgymf388 mg, oral, Nightly, First dose on Thu03/28/24 at 2100Start: 39-17-8982bxjs 150 mg by mouth once zyktz363 mg, Oral, NIGHTLY, First dose on Thu04/02/22 at 2100, Until DiscontinuedStart: 14-02-9476enpPJKnpc HCl - 150 MG Oral Tablet Quantity: 90 Refills: 0 Ordered: 22-May-2020 DO Start : 22-May-2020 ActiveStart: 11-43-9824mixz 150 mg by mouth once fxbuy969 mg, Oral, NIGHTLY, First dose on Thu04/03/20 at 2100Start: 08-05-2016 End: 87-92-2893hywq 1 tablet by mouth at bedtimeTrazodone 150 mg tablet Discontinued 150 MG PO Bedtime April 20, 2023 12:00am May 22, 2025 3:52pmtraZODone (DESYREL) 150 MG tablet Take 75 mg by mouth nightly 0 Active Comment on above:Take 1 tablet by mouth daily at bedtime.Trelegy Ellipta 100 mcg-62.5 mcg-25 mcg inhalation powder (6 sources)Start: 91-28-1881Bhsjsyy Ellipta 100 mcg-62.5 mcg-25 mcg inhalation powder Refills(s) 0 Start Date: 12/23/21 Status: Ordered7 actuat umeclidinium 0.0625 mg/actuat dry powder inhaler (7 sources)AnticholinergicStart: 48-81-6540rdjg 1 puff(s) by inhalation in the morningumeclidinium (INCRUSE ELLIPTA) 62.5 mcg/actuation blister with device Indications: CARISA (obstructivesleep apnea) , Shortness of breath , Chronic bronchitis ([facility]) Inhale 1 puff in the morning. 7 each 01/20/2024 Active vitamin b12 1 mg oral tablet (20 sources)Vitamin I50Htrqf: 32-91-5396iqtt 1 tablet by mouth in the morning cyanocobalamin (Vitamin B-12) 1000 MCG tablet Take 1,000 mcg by mouth in the morning. 12/17/2024 ActiveStart: 12-51-8330ximv 1 tablet by mouth in the morning cyanocobalamin 1000 MCG tablet Take 1 tablet (1,000 mcg total) by mouth in the morning. 30 tablet 12/17/2024 ActiveStart: 91-86-3172rqaj 1 tablet by mouth in the morningcyanocobalamin 1000 MCG tablet Take 1 tablet (1,000 mcg total) by mouth in the morning. 30 tablet 12/17/2024 Activewarfarin (COUMADIN) daily dosing (placeholder) (1 source)Start: 04-75-3760xntgwiqw (COUMADIN) daily dosing (placeholder) warfarin placeholder: dosing by pharmacy (1 source)Start: 25-22-6104udtejzfp placeholder: dosing by pharmacy Completed/Discontinued Medications MedicationDrug Class(es)DatesSig (Normalized)Sig (Original)albuterol 0.833 mg/ml / ipratropium bromide 0.167 mg/ml inhalation solution (2 sources)Anticholinergic, beta2-Adrenergic AgonistStart: 88-53-5711xfkf 1 dose by inhalation every four hours as needed1 Dose, Inhalation, EVERY 4 HOURS PRN, Starting on Thu03/23/25 at 0815, Until Discontinued, Shortness of Breath, Initiate RT Bronchodilator Protocol: Yes - Inpatient ProtocolStart: 03-22-2025 End: 74-29-5908enxq 1 dose by inhalation four times daily1 Dose, Inhalation, 4 TIMES DAILY RESP, First dose on Thu03/22/25 at 1600, Until Discontinued, Initiate RT Bronchodilator Protocol: Yes - Inpatient Protocolaluminum hydroxide 50.8 mg/ml / magnesium carbonate 47.5 mg/ml oral suspension (1 source)Start: 10-26-5429xpnu 10 mL by mouth at bedtimeGaviscon Extra Strength 254-237.5 MG/5ML Oral Suspension Take 10ml after meals and at bedtime. Quant ity: 1 Refills: 4 Ordered: 05-Mar-2021 Taurus Dobson MD Start : 05-Mar-2021 ActiveamLODIPine 10 mg oral tablet (20 sources)Dihydropyridine Calcium Channel BlockerStart: 11-29-2024 End: 39-72-6577qivi 1 tablet by mouth once dailyAmlodipine 10 mg tablet Discontinued 10 MG PO Daily November 29, 2024 12:00am May 10, 2025 1:32pm Start: 04-20-2023 End: 80-30-3149hndv 1 tablet by mouth once dailyAmlodipine 5 mg tablet Discontinued 5 MG PO Daily April 20, 2023 12:00am November 29, 2024 6:44pm Start: 75-20-5654kgvziqpcme Oral, Daily Start Date: 02/02/23 Status: Ordered Start: 86-96-3516msos 1 tablet by mouth once dailyamLODIPine (NORVASC) 10 MG tablet Take 1 tablet by mouth daily 30 tablet 1 01/13/2023 ActiveStart: 00-24-1621atkw 1 tablet by mouth once dailyamLODIPine (NORVASC) 2.5 MG tablet Take 1 tablet by mouth daily 30 tablet 5 06/06/2022 ActiveStart: 48-23-2643iitw 1 tablet by mouth once dailyamLODIPine (NORVASC) 2.5 MG tablet Take 2.5 mg by mouth daily 0 05/18/2022 ActiveStart: 03-09-2022 End: 63-41-1991bire 1 tablet by mouth in the morningamLODIPine (NORVASC) 2.5 MG tablet Take 1 tablet by mouth in the morning. 90 tablet 3 03/09/2022 04/03/2022 Discontinued (Stop Taking at Discharge)Start: 55-74-6858iwxc 1 tablet by mouth once dailyamLODIPine (NORVASC) 2.5 MG tablet Take 1 tablet by mouth daily 90 tablet 3 01/03/2022 ActiveStart: 18-03-8402dure 1 tablet by mouth once daily amLODIPine (NORVASC) 2.5 MG tablet Take 1 tablet by mouth daily 90 tablet 3 12/27/2021 ActiveStart: 06-21-2021 End: 60-37-8202meku 1 tablet by mouth once dailyamLODIPine (NORVASC) 5 mg tablet Take 1 tablet by mouth once daily. 30 tablet 1 06/21/2021 ActiveStart: 04-04-2020 End: 61-62-3230gnww 2.5 mg by mouth once daily2.5 mg, Oral, DAILY, First dose on Thu04/04/20 at 0900 Hold for SBP <110Start: 11-09-2019 End: 47-52-5048hden 0.5 tablet by mouth once dailyamLODIPine (NORVASC) 5 MG tablet Indications: Essential hypertension Take 0.5 tablets by mouth daily 90 tablet 3 11/09/2019 04/06/2020 Discontinued (Stop Taking at Discharge)Start: 07-04-2019 End: 69-54-0802qvtq 1 tablet by mouth twice dailyamLODIPine (NORVASC) 5 mg tablet TAKE 1 TABLET BY MOUTH TWICE DAILY FOR 90 DAYS 0 10/19/2019 06/04/2021 DiscontinuedStart: 01-47-8896ejmg 1 tablet by mouth once daily, then take 0.5 tablet by mouth once dailyamLODIPine (NORVASC) 5 MG tablet Take 1 tablet by mouth daily Take 1/2 tablet daily 90 tablet 3 06/29/2019 ActiveamLODIPine Besylate 5 MG Oral Tablet Quantity: 0 Refills: 0 Ordered: 03-Jul-2021 DO Active Comment on above:Take 1 tablet by mouth once daily.TAKE 1 TABLET BY MOUTH TWICE DAILY FOR 90 DAYSapixaban 5 mg oral tablet (20 sources)Factor Xa InhibitorStart: 11-29-2024 End: 16-55-3611ieju 2.5 mg by mouth twice dailyApixaban (Eliquis) 5 mg tablet Discontinued 2.5 MG PO Twice daily November 29, 2024 12:00am May 10, 2025 1:32pmStart: 01-14-2024 End: 43-23-6223gaie 0.5 tablet by mouth in the morning, then take 0.5 tablet by mouth at bedtimeELIQUIS 5 mg tablet TAKE 1/2 (ONE-HALF) TABLET BY MOUTH IN THE MORNING AND 1/2 (ONE-HALF) AT BEDTIME 60 tablet 11/28/2024 ActiveStart: 01-14-2024 End: 03-65-8718frcp 1 tablet by mouth in the morningapixaban (Eliquis) 2.5 MG tablet Take 1 tablet (2.5 mg) by mouth in the morning and 1 tablet (2.5 mg) before bedtime. 60 tablet 3 01/14/2024 02/20/2025 DiscontinuedStart: 06-19-2023 take 1 tablet by mouth twice dailyapixaban (ELIQUIS) 5 MG TABS tablet Take 1 tablet by mouth 2 times daily 180 tablet 3 06/19/2023 Activeascorbic acid 500 mg oral tablet (9 sources)Vitamin CStart: 06-20-2021 End: 15-96-6836sqcn 1 tablet by mouth twice daily at mealtimeascorbic acid, vitamin C, (VITAMIN C) 500 mg tablet Take 1 tablet by mouth twice daily with meals for 21 doses. 21 tablet 06/20/2021 04/17/2022 Discontinued (Course of therapy completed)take 1 tablet by mouth once dailyAscorbic Acid (VITAMIN C) 250 MG tablet Take 250 mg by mouth daily 0 ActiveComment on above:Take 1 tablet by mouth twice daily with meals for 21 doses.Aspir-81 81 MG (1 source)take 1 tablet by mouth once dailyAspir-81 81 MG 1 tablet Orally Once a day *please review for potential _update for e-prescription and drug interaction check* Not-Takingbarium sulfate (E-Z-Disk) tablet 700 mg (1 source)Start: 03-29-2024 End: 54-91-9763xkjh 1-2 tablets by mouth soku451 mg (1 tablet), oral, Once in imaging, Starting on Thu03/29/24 at 0858, For 1 dose, Swallow whole with 1-2 swallows of water just prior to fluoroscopic examination.barium sulfate (E-Z-Paque) 96 % (w/w) suspension 150 mL (1 source)Start: 04-01-2024 End: 12-93-3120wopu 150 mL by mouth ywlg868 mL, oral, Once in imaging, Starting on Thu04/01/24 at 1042, For 1 dosebarium sulfate (Varibar Honey) 40 %(w/v), 29% (w/w)(1500 CPS) suspension 5 mL (1 source)Start: 03-29-2024 End: 14-48-9348bqll 5 mL by mouth once5 mL, oral, Once in imaging, Starting on Thu03/29/24 at 0857, For 1 dosebarium sulfate (Varibar [place]) 40 % (w/v) suspension 30 mL (1 source)Start: 03-29-2024 End: 69-41-7823xkha 30 mL by mouth once30 mL, oral, Once in imaging, Starting on Thu03/29/24 at 0857, For 1 dosebarium sulfate (Varibar Pudding) 40 % (w/v), 30% (w/w) oral paste 5 mL (1 source)Start: 03-29-2024 End: mL, oral, Once in imaging, Starting on Thu03/29/24 at 0858, For 1 dose, Administer with oral syringe or spoon. Max cumulative dose of 30 mL. Discard any unused product 21 days after tube opened.barium sulfate (Varibar THIN Liquid) 81 % (w/w) suspension 105 mL (1 source)Start: 03-29-2024 End: 05-28-1528xamy 105 mL by mouth lxgf839 mL, oral, Once in imaging, Starting on Thu03/29/24 at 0857, For 1 dosebenzonatate 100 mg oral capsule (1 source)Non-narcotic Antitussivetake 1 capsule by mouth every eight hours Benzonatate 100 MG 1 capsule as needed Orally Three times a day Not-Taking onabotulinumtoxina 100 unt injection (1 source)Acetylcholine Release InhibitorStart: 03-31-2024 End: 45-56-0851xnddaq 100 [IU] by intramuscular injection avzk300 Units, intramuscular, Once, On Thu03/31/24 at 0900, For 1 doseStart: 03-31-2024 End: 26-02-3145uimtzv 100 [IU] by intramuscular injection elqz177 Units, intramuscular, Once, On Thu03/31/24 at 0900, For 1 mfop736 ml calcium gluconate 20 mg/ml injection (1 source)Start: 03-24-2025 End: ,000 mg, IntraVENous, at 50 mL/hr, Administer over 120 Minutes, ONCE, On Thu03/24/25 at 0700, For 1dosecarbidopa 25 mg / levodopa 100 mg oral tablet (20 sources)Aromatic Amino Acid Decarboxylation Inhibitor, Aromatic Amino Acid Start: 05-23-2025 End: 90-01-1973zdxn 1 tablet by mouth two times weekly as neededCarbidopa- Levodopa (Sinemet) 25-100 mg tablet Discontinued 1 TAB PO As Directed as needed May 23, 2025 12:00am May 24, 2025 1:37pm One tablet as needed two times a weekStart: 66-02-6482mcvo 1 tablet by mouth once daily at bedtime carbidopa-levodopa (Sinemet) 25-100 MG tablet Take 1 tablet every day by oral route at bedtime. 12/17/2022 ActiveStart: 05-22-2020 End: 44-97-8786bwaw 1 tablet by mouth at bedtimeCarbidopa-Levodopa 25-100 mg tablet Discontinued 1 TAB PO Bedtime April 20, 2023 12:00am May 10, 2025 1:33pmStart: 08-05-2016 End: 36-04-0071dfbq 1 tablet by mouth once daily in the morningcarbidopa- levodopa (SINEMET 25-100) 25-100 mg per tablet Take 1 tablet by mouth every morning. 0 08/05/2016 Activetake 1 tablet by mouth two times weekly as needed carbidopa-levodopa (Sinemet) 25-100 MG tablet 1 tablet as needed Orally Two times a Week ActiveComment on above:Take 1 tablet by mouth every morning. carvedilol 3.125 mg oral tablet (15 sources)alpha-Adrenergic Nereyda, beta-Adrenergic BlockerStart: 11-07-2019 End: 89-04-4175esoc 1 tablet by mouth twice daily at mealtimecarvedilol (COREG) 3.125 MG tablet Indications: Dysautonomia (HCC) , Coronary artery disease involving [place] coronary artery of [place] heart without angina pectoris , S/P coronary artery stent placement , Angina, class III (HCC) , Chronic diastolic CHF (congestive heart failure), NYHA class 3 (HCC) , History of DVT (deep vein thrombosis) Take 1 tablet by mouth 2 times daily (with meals) 180 tablet 3 11/07/2019 06/25/2020 Discontinued (DISCONTINUED BY ANOTHER CLINICIAN)Start: 06-13-2019 End: 56-97-7746nyto 1 tablet by mouth twice daily at mealtimecarvedilol (COREG) 6.25 MG tablet Take 1 tablet by mouth 2 times daily (with meals) 180 tablet 3 06/13/2019 11/07/2019 DiscontinuedStart: 96-08-1490uuzu 1 tablet by mouth twice dailycarvedilol (COREG) 12.5 MG tablet Take 1 tablet by mouth 2 times daily 180 tablet 3 05/30/2019 Activetake 1 tablet by mouth twice daily at mealtime carvedilol (COREG) 6.25 MG tablet Take 6.25 mg by mouth 2 times daily (with meals) 0 Activecetirizine hydrochloride 10 mg oral tablet (7 sources)Histamine-1 Receptor AntagonistStart: 24-53-3200groh 1 tablet by mouth every twenty-four hoursCetirizine HCl 10 MG 1 tablet Orally Once a day for 30 day(s) December, Not-Taking End: 55-88-3299qcpm 1 tablet by mouth once dailycetirizine (ZYRTEC) 10 MG tablet Take 10 mg by mouth daily 0 07/13/2019 Discontinuedciprofloxacin 500 mg oral tablet (11 sources)Quinolone AntimicrobialStart: 05-06-2022 End: 90-44-8634tejh 1 tablet by mouth twice dailyciprofloxacin (CIPRO) 500 MG tablet Take 500 mg by mouth 2 times daily 0 05/06/2022 06/04/2022 Discontinued (Therapy completed)Comment on above:Take 1 tablet by mouth twice daily. clotrimazole 10 mg oral lozenge (8 sources)Azole AntifungalStart: 03-05-2021 End: 11-72-2648Vuztnxolhnwh 10 MG Mouth/Throat Tejinder ALLOW 1 TO DISSOLVE SLOWLY IN MOUTH 5 TIMES DAILY DIRECTED. Quantity: 70 Refills: 0 Ordered: 05-Mar-2021 Taurus Dobson MD Start : 05-Mar-2021 End : 20-Mar-2021 Complete1 ml denosumab 60 mg/ml prefilled syringe (20 sources)RANK Ligand InhibitorStart: 01-13-2025 End: 39-84-2062ucflefdiw (PROLIA) injection 60 mgStart: 01-13-2025 End: 77-66-573576 mg, subcutaneous, Once, On Thu01/13/25 at 1130, For 1 dose, Bring to room temp (15-30min) in original container. Give sub-Q in upper arm, upper thigh, or abdomen. End: 96-29-3619Lfrackoie (PROLIA SC) Inject under the skin 12/07/2024 DiscontinuedDenosumab (PROLIA SC) Inject under the skin Activediatrizoate lele- diatrizoat sod (Gastrografin 37% organic bound iodine) solution 30 mL (1 source)Start: 04-01-2024 End: 07-42-8366mysn 30 mL by mouth once30 mL, oral, Once, On Thu04/01/24 at 1100, For 1 dose, What is the indication of use? Diagnostic Usedroxidopa 100 mg oral capsule (6 sources)Start: 01-20-2020 End: 06-66-0820ypen 3 capsules by mouth three times dailyDroxidopa 100 MG CAPS Indications: Dysautonomia orthostatic hypotension syndrome (HCC) , ASHD (arter iosclerotic heart disease) , Chronic diastolic congestive heart failure (HCC) , History of DVT (deep vein thrombosis) , Lightheadedness , Shortness of breath Take 3 capsules by mouth 3 times daily Take sitting BP prior to each dose, hold for systolic blood pressure >150 270 capsule 3 01/20/2020 02/14/2020 Discontinued (Side effects)Start: 07-03-2019 End: 27-02-2621Ptcdvbevp (NORTHERA) 100 MG CAPS Take 2 capsules 3 times daily 360 capsule 0 07/03/2019 07/13/2019 DiscontinuedStart: 06-29-2019 End: 11-43-9346itpn 1 capsule by mouth three times dailyDroxidopa (NORTHERA) 200 MG CAPS Take 200 mg by mouth three times daily 270 capsule 3 06/29/2019 DiscontinuedStart: 15-31-1181ycha 2 capsules by mouth three times daily Droxidopa (NORTHERA) 100 MG CAPS Take 2 capsules by mouth 3 times daily 180 capsule 11 06/27/2019 Activetake 1 capsule by mouth three times dailyDroxidopa 100 MG 1 capsule Orally Three times a day, as directed *please review for potential _update for e-prescription and drug interaction check* Cardiology Not-Taking2 ml enalaprilat 1.25 mg/ml injection (1 source)Angiotensin Converting Enzyme InhibitorStart: 03-28-2024 End: .25 mg, intravenous, Once, On Thu03/28/24 at 2330, For 1 dose, IV push administer over 5 minutes; IV piggyback dilute in 50 mL NS or D5 and administer over 20 minutes1 ml epoetin sixto-epbx 3000 unt/ml injection (4 sources)Erythropoiesis-stimulating AgentStart: 06-06-2025 End: 53-05-8575yaavlh 3000 [IU] by subcutaneous injection once3,000 Units, SubCUTAneous, ONCE, On Thu06/06/25 at 1215, For 1 dose, Hold for hgb>10Start: 05-30-2025 End: 45-39-1368yjfojb 3000 [IU] by subcutaneous injection once3,000 Units, SubCUTAneous, ONCE, On Thu05/30/25 at 1245, For 1 dose, Hold for hgb>10Start: 05-16-2025 End: 54-91-2229fsaldl 3000 [IU] by subcutaneous injection once3,000 Units, SubCUTAneous, ONCE, On Thu05/16/25 at 1045, For 1 dose, Hold for hgb>10Start: 05-09-2025 End: 12-14-0844rpwslz 3000 [IU] by subcutaneous injection once3,000 Units, SubCUTAneous, ONCE, On Thu05/09/25 at 1130, For 1 dose, Hold for hgb>102 ml fentaNYL 0.05 mg/ml injection (1 source)Opioid AgonistStart: mcg, IntraVENous, EVERY 10 MIN PRN, 3 doses, Starting on Thu04/26/25 at 1027, Until Discontinued, Pain Moderate (4- 6) OR per patient request for pain score (7-10), Pain Severe (7-10), For Phase I.If Phase II oral narcotics have been administered in the last 60 minutes, do not administer IV narcotics unless specifically approved by provider., PACU only fluticasone propionate 0.05 mg/actuat metered dose nasal spray (20 sources)CorticosteroidStart: 01-27-2024 End: 24-98-5119jdks 2 spray(s) nasal route once dailyfluticasone (Flonase) 50 MCG/ACT nasal spray Indications: Chronic rhinosinusitis Administer 2 sprays into each nostril Daily Shake gently. Before first use, prime pump. After use, clean tip and replace cap. 16 g 5 01/27/2024 12/07/2024 DiscontinuedStart: 04-20-2023 End: 86-75-0705Uebmyrvlagk Propionate 50 mcg/actuation spray,suspension Discontinued 2 SPRAY INTRANASAL Daily April 20, 2023 12:00am May 10, 2025 1:34pmStart: 80-42-9659fdwvuvjsrhk (Flonase) 50 mcg/actuation nasal spray 2 sprays once daily. 11/27/2022 ActiveStart: 05-18-2020 End: 30-21-1874ozev 2 spray(s) nasal route once dailyFluticasone Propionate 50 MCG/ACT Nasal Suspension USE 2 SPRAY(S) IN EACH NOSTRIL ONCE DAILY Quantity: 16 Refills: 0 Ordered: 18-May-2020 DO Start : 18-May-2020 End : 19[birth year]2021 Complete End: 52-43-5388fbhk 1 spray(s) nasal route once dailyfluticasone (FLONASE) 50 MCG/ACT nasal spray 1 spray by Each Nostril route daily 0 ActiveFlonase Active furosemide 20 mg oral tablet (20 sources)Loop DiureticStart: 34-03-889698 mg, intravenous, Once, On Thu03/28/24 at 2300, For 1 doseStart: 11-03-2022 End: 14-37-6154abod 1 tablet by mouth once dailyFurosemide 20 mg tablet Discontinued 20 MG PO Daily May 23, 2025 12:00am May 24, 2025 1:38pm1 ml heparin sodium, porcine 5000 unt/ml injection (1 source)Unfractionated Heparin, Anti-coagulantStart: 03-29-2024 End: 56-76-9736ofjrhi 5000 [IU] by subcutaneous injection every eight hours5,000 Units, subcutaneous, Every 8 hours, First dose on Thu03/29/24 at 1400, For 5 doseshydrALAZINE hydrochloride 25 mg oral tablet (20 sources)Arteriolar VasodilatorStart: 05-23-2025 End: 56-02-8473evvz 1 tablet by mouth twice dailyHydralazine 25 mg tablet Discontinued 25 MG PO Twice daily May 23, 2025 12:00am May 24, 2025 1:39pmStart: 04-20-2023 End: 76-13-6605czha 1 tablet by mouth once dailyHydralazine 25 mg tablet Discontinued 25 MG PO Daily April 20, 2023 12:00am May 10, 2025 1:35pmStart: 46-93-0971yczk 1 tablet by mouth every four hours as needed hydrALAZINE (APRESOLINE) 25 MG tablet Take 1 tablet by mouth every 4 hours as needed (for sbp > 180) 90 tablet 3 01/08/2023 ActiveStart: 94-12-7366bkiqWROJIMY (Apresoline) 25 mg tablet every 8 hours. 11/07/2019 ActiveStart: 11-07-2019 End: 12-76-2280orgw 1 tablet by mouth every four hours as neededhydrALAZINE (APRESOLINE) 25 mg tablet TAKE 1 TABLET BY MOUTH NEEDED EVERY 4 HOURS WHEN YOUR SYSTOLIC BLOOD PRESSURE IS ABOVE 180 MMHG TAKE DIRECTED 11/07/2019 ActiveStart: 54-43-8911uznbPKVIZGI HCl - 25 MG Oral Tablet Quantity: 90 Refills: 0 Ordered: 07-Nov-2019 DO Start : 07-Nov-2019 Activetake 1 tablet by mouth every eight hourshydrALAZINE HCl 25 MG 1 tablet with food Orally Three times a day ActiveComment on above:TAKE 1 TABLET BY MOUTH NEEDED EVERY 4 HOURS WHEN YOUR SYSTOLIC BLOOD PRESSURE IS ABOVE 180 MMHG TAKE DIRECTED0.5 ml HYDROmorphone hydrochloride 1 mg/ml prefilled syringe (2 sources)Opioid AgonistStart: 03-28-2024 End: .2 mg, intravenous, Once, On Thu03/28/24 at 2300, For 1 dose Start: 40.4 mg, intravenous, Every 3 hours PRN, pain breakthrough, Starting on Thu03/28/24 at 1854iopamidol (ISOVUE-370) 76 % injection 75 mL (1 source)Start: 04-17-2020 End: 20-36-6798dmsghhyzd (ISOVUE-370) 76 % injection [address] mLIpratropium [place] 0.06 % Nasal Solution (4 sources)AnticholinergicStart: 47-76-3506teqx 2 spray(s) nasal route three to four times dailyIpratropium [place] 0.06 % Nasal Solution USE 2 SPRAYS IN EACH NOSTRIL 3-4 TIMES DAILY. Quantity: 3Refills: 3 Ordered: 30-Aug-2020 Garland Vincent MD Start : 30-Aug-2020 ActiveStart: 03-24-2020 End: 76-43-6171zkhq 2 spray(s) nasal route twice daily as neededipratropium bromide (ATROVENT) 42 mcg (0.06 %) nasal spray USE 2 SPRAY(S) IN EACH NOSTRIL TWICE DAILY NEEDED FOR 30 DAYS 0 03/24/2020 06/18/2021 Discontinued (Discontinued by Patient)Start: 36-23-3521kbwz 2 spray(s) nasal route twice daily as neededIpratropium [place] 0.06 % 2 sprays in each nostril as needed Nasally Twice a day as needed for 30 days Feb, Not-TakingStart: 69-33-3464pzic 2 spray(s) nasal route twice dailyIpratropium [place] 0.03 % 2 sprays in each nostril Nasally Twice a day for 30 day(s) vasomotor rhinitis Nov, Not-TakingComment on above:USE 2 SPRAY(S) IN EACH NOSTRIL TWICE DAILY NEEDED FOR 30 DAYSiron sucrose (VENOFER) 300 mg in sodium chloride 0.9 % 250 mL IVPB (3 sources)Start: 05-16-2025 End: 19-73-9846039 mg, IntraVENous, at 176.7 mL/hr, Administer over 90 Minutes, ONCE, On Thu05/16/25 at 1030, For 1 dose, Observe for signs and symptoms of hypersensitivity and/or anaphylactic-type reaction for at least 30 minutes following the end of administration and until clinically stableStart: 05-09-2025 End: 85-73-1901228 mg, IntraVENous, at 176.7 mL/hr, Administer over 90 Minutes, ONCE, On Thu05/09/25 at 1000, For 1 dose, Observe for signs and symptoms of hypersensitivity and/or anaphylactic-type reaction for at least 30 minutes following the end of administration and until clinically stableStart: 03-23-2025 End: 12-13-4384444 mg, IntraVENous, at 176.7 mL/hr, Administer over 90 Minutes, ONCE, On Thu03/23/25 at 2000, For 1doseiron sucrose 300 mg in NaCl 0.9% 250 mL (VENOFER) (5 sources)Start: 04-24-2022 End: 12-19-6475tibd sucrose 300 mg in NaCl 0.9% 250 mL (VENOFER)Start: 51-33-4831usfe sucrose 300 mg in NaCl 0.9% 250 mL (VENOFER)1 ml ketorolac tromethamine 15 mg/ml injection (1 source)Nonsteroidal Anti-inflammatory Drug, Cyclooxygenase InhibitorStart: 03-28-2024 End: mg, intravenous, Once, On Thu03/28/24 at 1440, For 1 dose10 ml lidocaine hydrochloride 10 mg/ml injection (1 source)Antiarrhythmic, Amide Local AnestheticStart: 03-31-2022 End: 59-84-3408unccejezs (PF) 10 mg/mL (1 %) 4 mL injection (XYLOCAINE)Start: 03-31-2022 End: 46-24-1123itvnkxilv (PF) 10 mg/mL (1 %) 4 mL injection (XYLOCAINE) methylPREDNISolone (7 sources)CorticosteroidStart: 12-30-2021 End: 66-00-4693fxekhwJSOZTROxkzol (MEDROL, MAMADOU,) 4 mg Dose-Pack Do not use NSAIDS while on dose pack. Use as instructed on package 21 tablet 0 12/30/2021 04/17/2022 Discontinued (Course of therapy completed)Start: 12-30-2021 methylPREDNISolone (MEDROL, MAMADOU,) 4 mg Dose-Pack Do not use NSAIDS while on dose pack. Use as instructed on package 21 tablet 0 12/30/2021 ActiveComment on above:Do not use NSAIDS while on dose pack. Use as instructed on package2 ml metoclopramide 5 mg/ml prefilled syringe (1 source)Dopamine-2 Receptor AntagonistStart: 78-97-632383 mg, IntraVENous, ONCE PRN, 1 dose, Starting on Thu04/26/25 at 1027, Until Discontinued, Nausea, I nitial antiemetic therapy., PACU onlyMisc. Devices (FINGERTIP PULSE OXIMETER) MISC (6 sources)Start: 05-29-2017 End: 45-99-3364Yfoc. Devices (FINGERTIP PULSE OXIMETER) MISC 1 Units by Does not apply route once for 1 dose 1 each 0 05/29/2017 07/13/2019 DiscontinuedStart: 85-24-0536Jfmr. Devices (FINGERTIP PULSE OXIMETER) MISC 1 Units by Does not apply route once for 1 dose 1 each 0 05/29/2017 Activemupirocin 0.02 mg/mg topical ointment (10 sources)RNA Synthetase Inhibitor AntibacterialStart: 70-99-7134namneqmtd (BACTROBAN) 2 % ointment Indications: Preop examination , Infection associated with internal right knee prosthesis, subsequent encounter Apply 0.5 inch with cotton swab (Q-tip) to each nostril in the morning and evening for 5 days prior to and including day of surgery. 22 g 0 04/17/2022 SuspendedStart: 11-29-2021 Mupirocin 2 % External Ointment use intra nasally 3 days before surgery twice daily Quantity: 1 Refills: 0 Ordered: 29-Nov-2021 Tasia Child Start : 29-Nov-2021 ActiveComment on above:Apply 0.5 inch with cotton swab (Q-tip) to each nostril in the morning and evening for 5 days priorto and including day of surgery.nitroglycerin 0.4 mg sublingual tablet (1 source)Nitrate VasodilatorStart: .4 mg, SubLINGual, EVERY 5 MIN PRN, 3 doses, Starting on Thu04/02/22 at 1558, Until Discontinued, Chest pain Place 1 tablet under tongue upon chest pain, wait 5 minutes and may repeat up to 3 doses in 15 minutes. Do not crush or break.olmesartan medoxomil 40 mg oral tablet (3 sources)Angiotensin 2 Receptor BlockerStart: 11-29-2024 End: 01-79-9081okjb 1 tablet by mouth once dailyOlmesartan 40 mg tablet Discontinued 40 MG PO Daily November 29, 2024 12:00am May 10, 2025 1:35pm 2 ml ondansetron 2 mg/ml injection (1 source)Serotonin-3 Receptor AntagonistStart: 03-28-2024 End: mg, intravenous, Once, On Thu03/28/24 at 2315, For 1 dose, When administering via IV Push, administer over 3-5 minutes.pantoprazole 40 mg delayed release oral tablet (18 sources)Proton Pump InhibitorStart: 04-20-2023 End: 31-03-7080uopy 1 tablet by mouth once dailyPantoprazole 40 mg Tablet,Delayed Release (Dr/Ec) Discontinued 40 MG PO Daily April 20, 2023 12:00am May 10, 2025 1:35pmStart: 74-16-7489tzadhyyykebh Daily Start Date: 02/02/23 Status: Orderedpotassium phosphates 15 mmol in dextrose 5% 250 mL IV (1 source)Start: 04-01-2024 End: mmol, intravenous, at 63.8 mL/hr, Administer over 4 Hours, Once, On Thu04/01/24 at 0930, For 1 dose, Each 3 mmol contains 4.4 mEq potassium.prochlorperazine 5 mg/ml injectable solution (2 sources)PhenothiazineStart: 55 mg, IntraVENous, ONCE PRN, 1 dose, Starting on Thu04/26/25 at 1027, Until Discontinued, Nausea, Secondary antiemetic therapy., PACU onlyStart: 99-38-1389lfzw 1 tablet by mouth every six hours as neededprochlorperazine (Compazine) tablet 10 mgregadenoson (LEXISCAN) injection 0.4 mg (1 source)Start: 04-03-2022 End: 01-67-4750emcsgvljemi (LEXISCAN) injection 0.4 mgsotalol hydrochloride 120 mg oral tablet (20 sources)AntiarrhythmicStart: 56-66-6198Tigaxxu HCl - 120 MG Oral Tablet Quantity: 60 Refills: 0 Ordered: 26-May-2020 DO Start : 26-May-2020 ActiveStart: 04-07-2020 End: 11-67-2748cpes 1 tablet by mouth once dailysotalol (BETAPACE) 120 mg tablet Take 120 mg by mouth once daily. 0 05/26/2020 06/20/2021 DiscontinuedStart: 45-25-3544npyg 1 tablet by mouth once dailysotalol (BETAPACE) 120 MG tablet Take 1 tablet by mouth daily 60 tablet 3 04/07/2020 ActiveStart: 04-03-2020 End: 69-61-3955rcpdwcv (BETAPACE) tablet 120 mgComment on above:Take 120 mg by mouth once daily.sucralfate 100 mg/ml oral suspension (7 sources)Aluminum ComplexStart: 91-22-1380dymo 10 mL by mouth four times daily at bedtimesucralfate (CARAFATE) 100 mg/mL suspension TAKE 10 ML BY MOUTH 4 TIMES DAILY BEFORE MEAL(S) AND AT BEDTIME FOR 7 DAYS 0 04/10/2022 Suspended Comment on above:TAKE 10 ML BY MOUTH 4 TIMES DAILY BEFORE MEAL(S) AND AT BEDTIME FOR 7 DAYStechnetium sestamibi (CARDIOLITE) injection 10 millicurie (1 source)Start: 04-03-2022 End: 68-51-6422wmpxliekwx sestamibi (CARDIOLITE) injection 10 millicurie technetium sestamibi (CARDIOLITE) injection 30 millicurie (1 source)Start: 04-03-2022 End: 74-76-5293kdhuskeqyw sestamibi (CARDIOLITE) injection 30 millicurie therapeutic multivitamin-minerals (THERA-M PLUS) 9 mg iron-400 mcg tablet (7 sources)Start: 06-20-2021 End: 08-15-9188voxzmcpsaon multivitamin-minerals (THERA-M PLUS) 9 mg iron-400 mcg tablet Take 1 tablet by mouth once daily. 30 tablet 06/20/2021 04/17/2022 Discontinued (Course of therapy completed)Start: 06-20-2021 End: 73-58-7572lelloezjlgv multivitamin-minerals (THERA-M PLUS) 9 mg iron-400 mcg tablet Take 1 tablet by mouth once daily. 30 tablet 0 06/20/2021 04/17/2022 Discontinued (Course of therapy completed)Start: 30-82-3421esnjiszrfnf multivitamin-minerals (THERA-M PLUS) 9 mg iron-400 mcg tablet Take 1 tablet by mouth once daily. 30 tablet 0 06/20/2021 ActiveComment on above:Take 1 tablet by mouth once daily.10 ml tranexamic acid 100 mg/ml injection (1 source)Antifibrinolytic AgentStart: 03-20-2025 End: 00-67-3162kmsqd 1 dose topically once1,000 mg, Topical, ONCE, 1 dose, On Thu03/20/25 at 1330Start: 03-20-2025 End: 04-38-7787wuewg 1 dose topically once1,000 mg, Topical, ONCE, 1 dose, On Thu03/20/25 at 1330triamcinolone acetonide 1 mg/ml topical cream (20 sources)CorticosteroidStart: 05-12-2024 End: 90-72-3264xuqaobdfuajhd (Kenalog) 0.1 % cream Indications: Other specified dermatitis Apply to affected areas, up to twice a day when flared, do not use one the face, groin, or underarms, 30 day supply 454 g 12/07/2024 DiscontinuedStart: 33-90-9055pofchskcziqla acetonide (KENALOG) 0.1 % cream APPLY TO AFFECTED AREAS ON THE BACK TOPICALLY WHEN FLARED TWICE DAILY. (AVOID THE FACE, ARMPITS AND GROIN) 03/23/2022 ActiveStart: 45-34-9128okztuarjuirrr Top 0.1% Crm 80 gram Refill(s) 0 Start Date: 12/23/21 Status: OrderedStart: 12-23-2021 triamcinolone Top 0.1% Crm 80 gram Refill(s) 0 Start Date: 12/23/21 Status: OrderedStart: 02-02-2020 End: 50-87-6635niibzusjdljok (KENALOG) 0.1 % cream Apply 1 applicator topically See Admin Instructions 0 02/02/2020 04/03/2020 DiscontinuedComment on above: APPLY TO AFFECTED AREAS ON THE BACK TOPICALLY WHEN FLARED TWICE DAILY. (AVOID THE FACE, ARMPITS ANDGROIN)200 ml vancomycin 5 mg/ml injection (11 sources)Glycopeptide AntibacterialStart: 05-07-2022 End: 29-15-0959zdzl 1 g intravenously every twenty-four hoursvancomycin (VANCOCIN) 1-5 GM/200ML-% SOLN Infuse 1 g intravenously every 24 hours 0 05/07/2022 06/04/2022 Discontinued (Therapy completed)Start: 05-07-2022 End: 87-95-5262rppyjd 1000 mg intravenously once dailyvancomycin (VANCOCIN) 1 g injection Infuse 1,000 mg intravenously daily 0 05/07/2022 05/15/2022 Disc ontinued (LIST CLEANUP)Comment on above:Inject 200 mL intravenously q 24 HR for 28 days.warfarin sodium 5 mg oral tablet (20 sources)Vitamin K AntagonistStart: 02-20-2025 End: 78-14-2418dtnwpvuq (COUMADIN) 5 MG tablet Take 1 tablet by mouth See Admin Instructions [facility] half tablet for .5 mg MF and 5 mg tablet all other days 72 tablet 3 02/20/2025 03/21/2025 Discontinued (LIST CLEANUP)Start: 04-20-2023 End: 00-23-9164Kmpcydyk 7.5 mg tablet Discontinued 7.5 MG PO As Directed April 20, 2023 12:00am November 29, 2024 6:37pmStart: 14-73-6116xrctwmlx (COUMADIN) tablet 7.5 mgStart: 10-10-2021 End: 86-06-4609yyiirayy (COUMADIN) 5 mg tablet Take 5 mg by mouth once daily. M- W FR 7.5 mg Sun Tues Thur Sat 5 mg10/10/2021 ActiveStart: 88-59-3477Waaimjcf Sodium 5 MG Oral Tablet 7.5 mg M, W, F; 5 mg T, TH, Sa, [place] Quantity: 0 Refills: 0 Ordered:14-Apr-2020 DO Start : 14-Apr-2020 ActiveStart: 04-06-2020 End: 03-08-7582ubvhzefh (COUMADIN) tablet 7.5 mgStart: 34-41-0963rogqkkxk (COUMADIN) tablet 10 mgStart: 08-13-2016 End: 07-91-8591gbjh 1 tablet by mouth once dailywarfarin (COUMADIN) 5 MG tablet Indications: PAF (paroxysmal atrial fibrillation) (HCC) Take 1 tablet by mouth daily [facility]: 7.5 mg MWF and 5 mg all other days 90 tablet 3 04/11/2021 ActiveComment on above:Take 5 mg by mouth.Take 5 mg by mouth once daily. M-W FR 7.5 mg Sun Thur Sat 5 mgTake 1 tablet by mouth once daily. Thursday, Thursday, Thursday, , Thursday and Thursday Problems Active Problems Problem ClassificationProblemDateDocumented DateEpisodic/ChronicAbdominal hernia (20 sources)Hiatal hernia; Translations: [Diaphragmatic hernia without mention of obstruction or gangrene]Onset: 570064-22-2792LynzbjvpRjirg and unspecified renal failure (20 sources)Acute renal failure syndrome; Translations: [Acute kidney failure, unspecified]Onset: 03-07-2017 Resolved: 588048-59-8249XytcxgtyXutcfz; peripheral; and visceral artery aneurysms (20 sources)Aortic aneurysm of unspecified site, without rupture; Translations: [Dissection of aorta]Onset: 050350-03-3374IcrnvuuSruvqt (20 sources)Asthma; Translations: [Unspecified asthma, uncomplicated]Onset: 723558-35-0092LyxouvfVdgvou of breast (2 sources)History of malignant neoplasm of breast; Translations: [Personal history of malignant neoplasm of breast]EpisodicCancer; other and unspecified primary (20 sources)H/O: malignant neoplasm; Translations: [Personal history of unspecified malignant neoplasm]EpisodicCardiac dysrhythmias (20 sources)Sick sinus syndrome; Translations: [Persistent sinus bradycardia] Onset: 06-14-2012 Resolved: 221403-26-6938UnxtcwrGxovhhw dysrhythmias (20 sources)Tachycardia; Translations: [Tachycardia, unspecified]Onset: 06-14-2012 Resolved: 695667-27-4107QfspdqyuNlqemre kidney disease (20 sources)Chronic kidney disease; Translations: [Chronic kidney disease, unspecified]Onset: 556101-72-1693HknqupkRsavyeq kidney disease (1 source)Chronic kidney disease; Translations: [Chronic kidney disease, stage 3 unspecified (HCC)]Onset: 89-49-6744[place]ix obstructive pulmonary disease and bronchiectasis (20 sources)Centriacinar emphysema; Translations: [Moderate chronic obstructive pulmonary disease]Onset: 02-10-2011 Resolved: 546418-76-2926HjzejyqEfxinau ulcer of skin (13 sources)Non-pressure chronic ulcer of unspecified part of left lower leg limited to breakdown of skin; Translations: [Ulcer of lower limb, unspecified] Onset: 124664-13-8002GjgkdbgQyygabgjift and hemorrhagic disorders (20 sources)Disorder of hemostatic system; Translations: [Other and unspecified coagulation defects]Onset: 309568-76-6245BrjbcjyZtjxwktauk disorders (20 sources)Presence of cardiac pacemaker; Translations: [Cardiac pacemaker in situ]Onset: 03-05-2017 Resolved: 854989-03-3659YfqslxpQhhmhzngbi heart failure; nonhypertensive (20 sources)Chronic diastolic heart failure; Translations: [Chronic diastolic (congestive) heart failure]Onset: 020835-61-8307JlomedjFudjfjpd atherosclerosis and other heart disease (20 sources)Atherosclerotic heart disease of [place] coronary artery with unspecified angina pectoris; Translations: [Angina pectoris, unspecified]Onset: 02-06-2012 Resolved: 024244-80-0684XdvrealTyhtkmhm atherosclerosis and other heart disease (20 sources)Presence of coronary angioplasty implant and graft; Translations: [History of placement of stent for coronary artery disease]Onset: 12-18-2014 96-09-8417TwrvzwmiFmlkcodfrg and other anemia (8 sources)Anemia co-occurrent and due to chronic kidney disease stage 3; Translations: [Anemia due to stage 3chronic kidney disease, 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)]07-71-7007NsqfsbyKivtwpiqrp and other anemia (1 source)Anemia in chronic kidney disease; Translations: [Anemia in chronic kidney disease]Onset: 91-29-5377QywtwmcUjawjjtbhq and other anemia (1 source)Anemia; Translations: [Anemia, unspecified]75-01-5121Wxonkryz Deficiency and other anemia (19 sources)Chronic anemia; Translations: [Anemia, unspecified]Onset: 03-24-2025 20-98-7442IjsuvovfYsiwtbgj mellitus without complication (20 sources)Prediabetes; Translations: [High hemoglobin A1c level]Onset: 64-85-4282WljoarppXbwgwbvzx of lipid metabolism (20 sources)Mixed hyperlipidemia; Translations: [Mixed hyperlipidemia]Onset: 838381-56-9975RhfchprIafitqcriwvazv and diverticulitis (13 sources)Diverticular disease; Translations: [Diverticulosis of intestine, part unspecified, without perforation or abscess without bleeding]Onset: 07-08-2011 Resolved: 842658-00-4991DjejqzqQjgsqjnkjk disorders (20 sources)Laryngopharyngeal reflux; Translations: [Other diseases of larynx, not elsewhere classified]Onset: 69-94-8779YvcgxfeIztgkfhjz hypertension (20 sources)Hypertensive disorder; Translations: [Essential hypertension]Onset: 07-27-2018 Resolved: 601529-85-8800KlynjveAgqrvjyxmwcms symptoms and ill-defined conditions (20 sources)Mixed incontinence; Translations: [Incontinence]Onset: 12-23-2021 ChronicGenitourinary symptoms and ill-defined conditions (20 sources)H/O: urinary anomaly; Translations: [Personal history of other specified urinary system disorders]Onset: 82-30-4461VgnfxaklLuczayqy; including migraine (3 sources)Migraine with aura; Translations: [Migraine with aura, not intractable, without status migrainosus]90-41-3124YejxlzwNlqh disorders (20 sources)Depressive disorder; Translations: [Major depressive disorder, single episode, unspecified]Onset: 454458-35-8077IlphlbcEzlckuf (15 sources)Mycosis; Translations: [Other and unspecified mycoses]Episodic Nutritional deficiencies (20 sources)Nutritional marasmus; Translations: [Unspecified severe protein- calorie malnutrition]Onset: 06-15-2018 Resolved: 002856-65-8805SuisufuOmhs wounds of extremities (20 sources)Tear of skin; Translations: [Laceration without foreign body of left elbow, initial encounter]Onset: 04-20-2023 Resolved: 20-99-0631UvopglstZxpvowolsarzaz (20 sources)Osteoarthritis of knee; Translations: [Unilateral primary osteoarthritis, right knee]Onset: 408872-80-5301BxqdqumPmvwdpulwxtf (5 sources)Osteoporosis; Translations: [Age-related osteoporosis without current pathological fracture]Onset: 944271-31-4438GxubbppFlyam aftercare (1 source)Long-term 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 antibiotics for prevention of recurrent infection; Translations: [FDC (current) use of antibiotics]EpisodicOther aftercare (1 source)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; Translations: [FDC (current) use of antithrombotics/antiplatelets]EpisodicOther aftercare (1 source)Aspirin therapy finding; Translations: [FDC (current) use of aspirin]EpisodicOther aftercare (20 sources)Long-term 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 drug therapy; Translations: [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]Onset: 471925-89-3414UlhoznewBzuey aftercare (2 sources)Removal of sutures done; Translations: [Encounter for removal of sutures]58-06-4171MrbrzmosZgvyc aftercare (2 sources)Long-term 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; Translations: [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 (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) use of aspirin]58-81-8159ElndhqqsHtskt and ill-defined heart disease (17 sources)Diastolic dysfunction; Translations: [Other ill-defined heart diseases]Onset: 755994-26-0928NximkomSnxoj bone disease and musculoskeletal deformities (4 sources)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; Translations: [Idiopathic aseptic necrosis of unspecified femur]Onset: ChronicOther circulatory disease (1 source)Disorder of coronary artery; Translations: [Coronary artery disease with stable angina pectoris, unspecified vessel or lesion type, unspecified whether [place] or transplanted heart (HCC)]ChronicOther circulatory disease (3 sources)History of insertion of inferior vena caval filter; Translations: [Presence of other vascular implants and grafts]42-79-9784MeskogqIiilx circulatory disease (2 sources)History of angioplasty; Translations: [Peripheral vascular angioplasty status with implants and grafts]39-29-2060VvgodsfAdscs circulatory disease (15 sources)Presence of other cardiac implants and grafts; Translations: [Other specified cardiac device in situ]Onset: 04-26-2025 Resolved: 063845-72-8078EsditizXxoor circulatory disease (1 source)Peripheral vascular angioplasty status with implants and grafts; Translations: [Peripheral vascularangioplasty status with implants and grafts] Onset: 20-79-7533DarbjjoOgjwy circulatory disease (20 sources)H/O: heart disorder; Translations: [Personal history of other diseases of circulatory system]EpisodicOther circulatory disease (20 sources)H/O: hypertension; Translations: [Personal history of other diseases of circulatory system]EpisodicOther circulatory disease (11 sources)Chronic orthostatic hypotension; Translations: [Orthostatic hypotension]EpisodicOther circulatory disease (3 sources)Telangiectasia disorder; Translations: [Nevus, non-neoplastic] 56-58-4548RxqupydpPmkdv connective tissue disease (7 sources)History of revision of right total knee arthroplasty; Translations: [Presence of right artificial knee joint]ChronicOther connective tissue disease (5 sources)Artificial knee joint present; Translations: [Presence of unspecified artificial knee joint]42-42-9521ArclvcaJvnsr connective tissue disease (1 source)Presence of left artificial knee joint; Translations: [S/P revision of total knee, left]Onset: 12-58-6391TbbfklwFstmg connective tissue disease (1 source)History of revision of left total knee arthroplasty; Translations: [Presence of left artificial knee joint]00-91-7542DjejbvkGfeky connective tissue disease (20 sources)Recurrent falls ; Translations: [Repeated falls]Onset: 05-30-2019 Resolved: 946301-86-2285FhglliiqPvqac connective tissue disease (20 sources)H/O: arthritis; Translations: [Personal history of arthritis] EpisodicOther connective tissue disease (1 source)Pain of left calf; Translations: [Pain in left lower leg]EpisodicOther connective tissue disease (20 sources)Fibromyalgia; Translations: [Fibromyalgia]Onset: 02-04-2023 65-43-3110AhskusdmSmwwf connective tissue disease (2 sources)Repeated falls; Translations: [Repeated falls]Onset: 12-13-2024 EpisodicOther diseases of kidney and ureters (6 sources)Acquired renal cyst without neoplastic change; Translations: [Cyst of kidney, acquired]Onset: 24-23-4185PdjheftdIywmt gastrointestinal disorders (2 sources)Gastrostomy status; 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)]Onset: 00-35-6618YzljlorCyncv gastrointestinal disorders (3 sources)History of placement of gastrostomy tube; Translations: [Gastrostomy status]Onset: 800453-47-8551XbutivfDewac gastrointestinal disorders (20 sources)Dysphagia; Translations: [Dysphagia, unspecified]Onset: 03-28-2024 Resolved: 310933-96-3409QymyscrnEgtpi gastrointestinal disorders (15 sources)Esophageal dysphagia; Translations: [Dysphagia, unspecified]Episodic Other hereditary and degenerative nervous system conditions (15 sources)Shy-Drager syndrome; Translations: [Multi-system degeneration of the autonomic nervous system]Onset: 281884-59-2716BlhqdmwUnuav hereditary and degenerative nervous system conditions (20 sources)Restless legs; Translations: [Restless legs syndrome]Onset: 180822-67-8757PxdnolwPeeat hereditary and degenerative nervous system conditions (4 sources)Multiple system atrophy; Translations: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 [Cellulitis, unspecified]Onset: 12-14-2013 Resolved: 500639-24-2464AcepdpmdQgup and subcutaneous tissue infections (14 sources)Cellulitis of right lower limb; Translations: [Cellulitis of leg, right]Onset: 06-14-2018 Resolved: [id number] and strains (20 sources)Strain of knee; Translations: [Strain of unspecified muscle(s) and tendon(s) at lower leg level, right leg, initial encounter]Onset: 11-29-2018 Resolved: 822910-94-4960JvlctcvaPfsheae (20 sources)Syncope and collapse; Translations: [Syncope and collapse]Onset: 05-04-2018 Resolved: 163712-86-7998TjzcuaasRcjylqftiqel (14 sources)Treadmill stress test negative for angina pectoris; Translations: [Treadmill stress test negative for angina pectoris]Onset: 06-28-2012 Resolved: 264028-29-3209Zisnsqx tract infections (20 sources)Urinary tract infectious disease; Translations: [Urinary tract infection, site not specified]Onset: 06-15-2018 Resolved: 546559-40-9178Osgguplk Results Test NameValueInterpretationReference RangeFacilityCBCon 32-50-9857Efkvbjcckub distribution width (RBC) [Ratio]19.9 %High11.8 - 14.4 %[facility] Hematocrit (Bld) [Volume fraction]24.2 %Low36.3 - 47.1 %[facility] Hemoglobin (Bld) [Mass/Vol]7.6 g/dLLow11.9 - 15.1 g/dLBon [facility] Interpretation and review of laboratory resultsAbnormalLewisgale Hospital Montgomery MCH (RBC) [Entitic mass]32.6 pg25.2 - 33.5 pgLewisgale Hospital MontgomeryMCHC (RBC) [Mass/Vol]31.4 g/dL28.4 - 34.8 g/dLBon [facility] HospitalMCV (RBC) [Entitic vol]103.9 kIXfoz08.6 - 102.9 fLLewisgale Hospital MontgomeryNucleated RBC/100 WBC (Bld) [Ratio]0.0 %0.0 per 100 WBCLewisgale Hospital MontgomeryPlatelet mean volume (Bld) [Entitic vol]9.5 fL8.1 - 13.5 fLLewisgale Hospital MontgomeryPlatelets (Bld) [#/Vol]145 10*3/uLLewisgale Hospital MontgomeryRBC (Bld) [#/Vol]2.33 10*6/uLLow3.95 - 5.11 m/[facility] CenterWBC other (Bld) [#/Vol]4.7Bon [facility] HospitalErythrocyte distribution width (RBC) [Ratio]19.9 % High11.8-14.4[facility] - AndersonComment on above:Performed By: #### PTT #### [facility] [address] [place] [address] Ammunition Assembly Laborer: Renan Huerta MDHematocrit (Bld) [Volume fraction]24.2 %Low 36.3-47.1MercConnecticut HospiceComment on above:Performed By: #### PTT #### [address] [place], [place] [address] [employer] Laborer: Renan Huerta MDHemoglobin (Bld) [Mass/Vol]7.6 g/dLLow11.9-15.1 [facility] - AndersonComment on above:Performed By: #### PTT #### [address] [place] [id number] [employer]munition [employer] Laborer: SANDRA MartinezCH (RBC) [Entitic mass]32.6 rqKtgogi03.2-33.5 [facility] HospitalComment on above:Performed By: #### PTT #### [address] [place], [place] [address] Ammunition [employer] Laborer: AMINAH MartinezC (RBC) [Mass/Vol]31.4 g/jJYycmzw37.4-34.8[facility] - AndersonComment on above:Performed By: #### PTT #### [address] [place], [place] [address]83 [employer] Laborer: SANDRA MartinezCV (RBC) [Entitic vol]103.9 eDRkio45.6-102.9[facility] - AndersonComment on above:Performed By: #### PTT #### [address] [place], [facility] Ammunition [employer] Laborer: Renan Huerta MDNRBC Automated0.0 per 100 WBCNormal0.0[facility] - AndersonComment on above:Performed By: #### PTT #### [address] [place], [place] [address] [employer] Laborer: KAREEN Martinezlatelet mean volume (Bld) [Entitic vol]9.5 fL Normal8.1-13.5[facility] HospitalComment on above:Performed By: #### PTT #### [address] [place] [address] Ammunition [employer] Laborer: Maggie Martinez ([facility]) [#/Vol]145 10*3/yKOmygsg452-379 [facility] - AndersonComment on above:Performed By: #### PTT #### [address] [place] [address] Ammunition Assembly Laborer: ROLY Martinez ([facility]) [#/Vol]2.33 10*6/uLLow3.95-5.11[facility] AndersonComment on above:Performed By: #### PTT #### [address] [place] [address] Ammunition Assembly Laborer: MANDO Martinez ([facility]) [#/Vol]4.7 10*3/uLNormal3.5-11.3MFirelands Regional Medical Center South CampusComment on above:Performed By: #### PTT #### [address] [place] [address] Ammunition [employer] Laborer: Renan Huerta MDFerritinon 33-18-3468Poqhvpom [Mass/Vol]247 ng/mL [facility] MontgomeryComup health system on above:No reference range established for this age/gender.Ferritin [Mass/Vol]247 ng/mLNormalOur Lady Of Mercy Hospital - AndersonComup health system on above:Result Comment: No reference range established for this age/gender. Performed By: #### PTT #### [address] [place] [address] Ammunition Assembly Laborer: Manfred Martinez Binding Cap.on 06-12-2025% Fe Vsilcoofxo15 % Lmkhxg61-43PrdtjOur Lady Of Mercy Hospital - AndersonComment on above:Performed By: #### PTT #### [address] [place] [address] Ammunition Assembly Laborer: Manfred Martinez [Mass/Vol]30 ug/lONez79-327RqaccOur Lady Of Mercy Hospital - AndersonComment on above:Performed By: #### PTT #### [facility] [address] [place] [address] [place] [address] [employer]munition [employer] Laborer: Renan Huerta MDTotal Fe Binding Cbd038 ug/wZRzn005-436NlitfOur Lady Of Mercy Hospital - AndersonComup health system on above:Performed By: #### PTT #### [address] [place] [address] Ammunition Assembly Laborer: Renan Huerta MDUnbound Fe Bind Hsg217 ug/dHPmi109-432GorfaOur Lady Of Mercy Hospital - AndersonComment on above:Performed By: #### PTT #### [facility] [address] [place] [address] Dr[address] [place], [place] [id number] Ammunition [employer] Laborer: Manfred Martinez and TIBCone Health Moses [facility] 72-50-5330Nrvptjyftprqdh and review of laboratory resultsAbnormalBon [facility] HospitalIron [Mass/Vol]30 ug/dLLow37 - 145 ug/dLBon [facility] Health Instituten binding capacity [Mass/Vol] 139 ug/kTHdq589 - 450 ug/dLBon [facility] Health Instituten saturation [Mass fraction]22 %20 - 55 %Bon [facility] HospitalUIBC109 ug/iRJco686 - 347 ug/dLBon [facility] HospitalNo Panel Informationon 71-37-5214Gdm [facility] Brain Natri. Peptideon 89-41-3873Rgafvqrqveg peptide B (Bld) [Mass/Vol]4085 pg/mLHigh0-450[facility] - AndersonComment on above:Performed By: #### PTT #### [address] [place] [address] [employer] Laborer: Renan Huerta MDBrain Natriuretic Peptideon 40-08-0496Xnspkqrvemp peptide B (Bld) [Mass/Vol]4085 pg/mLHigh0 - 450 pg/mLBon [facility] HospitalCBC with Auto Differentialon 11-02-1439Pppvhzecf (Bld) [#/Vol]0.04 10*3/uLBon [facility] HospitalBasophils/100 WBC (Bld)1 %0 - 2 %[facility] Health Eosinophils (Bld) [#/Vol]0.09 10*3/uLBon [facility] HealthEosinophils/100 WBC (Bld)2 %1 - 4 %[facility] HealthErythrocyte distribution width (RBC) [Ratio]19.3 %High11.8 - 14.4 %[facility] HealthHematocrit (Bld) [Volume fraction]28.5 %Low36.3 - 47.1 %[facility] HealthHemoglobin (Bld) [Mass/Vol]8.8 g/dLLow11.9 - 15.1 g/dLBon Secours University Hospitals Samaritan Medical CenterImmature granulocytes (Bld) [#/Vol]0.03 10*3/uLBon Secours [facility] Hospitals Samaritan Medical CenterImmature granulocytes/100 WBC (Bld)1 %Qnud5Zcl SecPo[facility] HealthInterpretation and review of laboratory resultsAbnormalBon SecPointe Coupee [facility] HealthLymphocytes/100 WBC (Bld)14 %Low24 - 43 %[facility] HealthLymphocytes/100 WBC (Bld)0.59 %Low Bon [facility] HospitalH (RBC) [Entitic mass]31.5 pg25.2 - 33.5 pgBon SecMagruder Memorial HospitalHC (RBC) [Mass/Vol]30.9 g/dL28.4 - 34.8 g/dLBon SecProMedica Flower HospitalMCV (RBC) [Entitic vol]102.2 fL82.6 - 102.9 fLBon SecPointe Coupee [facility] Health Monocytes/100 WBC (Bld)6 %3 - 12 %[facility] HealthMonocytes/100 WBC (Bld)0.24 %[facility] HealthNeutrophils/100 WBC (Bld)76 %High36 - 65 %Bon SecProMedica Flower HospitalNucleated RBC/100 WBC (Bld) [Ratio]0.0 %0.0 per 100 WBCBon [facility]ours [facility] HealthPlatelet mean volume (Bld) [Entitic vol]10.0 fL8.1 - 13.5 fL [facility] HealthPlatelets (Bld) [#/Vol]120 10*3/uLLowBon [facility] HealthRBC (Bld) [#/Vol]2.79 10*6/uLLow3.95 - 5.11 m/uLBon [facility] Segmented neutrophils/100 WBC (Bld)3.32 %Bon [facility] HospitalWBC other (Bld) [#/Vol]4.3Bon [facility] HospitalBon [facility] HospitalCB with Diffon 18-55-1974Lip. Basophil0.04 k/uLNormal0.00-0.20MerGlenbeigh Hospital HospitalComment on above:Performed By: #### PTT #### [address] [place] [address] Ammunition [employer] Laborer: Jared Martinez.Imm.Granulocyte0.03 k/uLNormal0.00-0.30MerGlenbeigh Hospital HospitalComment on above:Performed By: #### PTT #### [address] [place] [address] Ammunition [employer] Laborer: Jared Martinez.Neutrophil (Seg)3.32 k/uLNormal1.50-8.10MerGlenbeigh Hospital HospitalComment on above:Performed By: #### PTT #### [address] [place] [address] [employer] Laborer: Renan Huerta MDBasophils/100 WBC (Bld)1 %Normal0-2[facility] HospitalComment on above:Performed By: #### PTT #### [address] [place] [address] Ammunition [employer] Laborer: Renan Huerta MDEosinophils (Bld) [#/Vol]0.09 10*3/uLNormal 0.00-0.44MerGlenbeigh Hospital HospitalComment on above:Performed By: #### PTT #### [address] [place] [address] Ammunition [employer] Laborer: LUIS Martinezosinophils/100 WBC (Bld)2 %Normal1-4[facility] HospitalComment on above:Performed By: #### PTT #### [address] [place] [address] Ammunition Assembly Laborer: Renan Huerta MDErythrocyte distribution width (RBC) [Ratio]19.3 % High11.8-14.4[facility] HospitalComment on above:Performed By: #### PTT #### [address] [place], [place] [address] Ammunition [employer] Laborer: Renan Huerta MDHematocrit (Bld) [Volume fraction]28.5 %Low 36.3-47.1[facility] HospitalComment on above:Performed By: #### PTT #### [address] [place] [address] Ammunition Assembly Laborer: Renan Huerta MDHemoglobin (Bld) [Mass/Vol]8.8 g/dLLow11.9-15.1 [facility] HospitalComment on above:Performed By: #### PTT #### [address] [place] [address] Ammunition [employer] Laborer: Renan Huerta MDImmature granulocytes/100 WBC (Bld)1 %Emjg0Amifz [facility] HospitalComment on above:Performed By: #### PTT #### [address] [place] [address] Ammunition Assembly Laborer: Renan Huerta MDLymphocytes (Bld) [#/Vol]0.59 10*3/uLLow1.10-3.70 [facility] HospitalComment on above:Performed By: #### PTT #### [address] [place] [address] Ammunition Assembly Laborer: Renan Huerta MDLymphocytes/100 WBC (Bld)14 %Qqc20-84Yxooy [place] HospitalComment on above:Performed By: #### PTT #### [address] [place] [address] Ammunition Assembly Laborer: SANDRA MartinezCH (RBC) [Entitic mass]31.5 mvVdulgt21.2-33.5 [facility] - AndersonComment on above:Performed By: #### PTT #### [address] [place] [address] Ammunition [employer] Laborer: SANDRA MartinezCHC (RBC) [Mass/Vol]30.9 g/kSUazpiu58.4-34.8[facility] AndersonComment on above:Performed By: #### PTT #### [address] [place], [place] [address] Am[employer] Laborer: SANDRA MartinezCV (RBC) [Entitic vol]102.2 vAWnlrwp75.6-102.9 [facility] AndersonComment on above:Performed By: #### PTT #### [address] [place] [address] Ammunition Assembly Laborer: SANDRA Martinezonocytes (Bld) [#/Vol]0.24 10*3/uLNormal0.10-1.20 [facility] AndersonComment on above:Performed By: #### PTT #### [address] [place] [address] Am[employer] Laborer: SANDRA Martinezonocytes/100 WBC (Bld)6 %Normal3-12[facility] - AndersonComment on above:Performed By: #### PTT #### [address] [place] [address] Ammunition Assembly Laborer: Naveed Martinez (Seg)76 %Xbpp86-12PokcxOur Lady Of Mercy Hospital - Anderson Comment on above:Performed By: #### PTT #### [address] [place], [place] [address] Ammunition Assembly Laborer: WILLARD Martinez Automated0.0 per 100 WBCNormal0.0[facility] - AndersonComment on above:Performed By: #### PTT #### [address] [place], [place] [address] Ammunition Assembly Laborer: Sal Martinez mean volume (Bld) [Entitic vol]10.0 fL Normal8.1-13.5[facility] AndersonComment on above:Performed By: #### PTT #### [address] [place] [address] Ammunition Assembly Laborer: Maggie Martinez (Bld) [#/Vol]120 10*3/pTNtp362-618Czqiv [facility]iffin HospitalComment on above:Performed By: #### PTT #### [address] [place] [address] Ammunition Assembly Laborer: ROLY Martinez (Bld) [#/Vol]2.79 10*6/uLLow3.95-5.11[facility] HospitalComment on above:Performed By: #### PTT #### [address] [place] [address] Ammunition Assembly Laborer: MANDO Martinez (Bld) [#/Vol]4.3 10*3/uLNormal3.5-11.3[facility] HospitalComment on above:Performed By: #### PTT #### [address] [place], [place] [address] Ammunition Assembly Laborer: Renan Huerta MDCT CERVICAL SPINE WO CONTRASTon 06-07-3431WV CERVICAL SPINE WO CONTRASTEXAM: CT Cervical Spine Without Intravenous Contrast EXAM DATE/TIME: 06/05/2025 4:24 pm CLINICAL HISTORY: ORDERING SYSTEM PROVIDED HISTORY: fall TECHNOLOGIST PROVIDED HISTORY: fall Decision Support Exception - unselect if not a suspected or confirmed emergency medical condition->Emergency Medical Condition (MA) TECHNIQUE: Axial computed tomography images of the cervical spine without intravenous contrast. This CT exam was performed using one or more of the following dose reduction techniques: automated exposure control, adjustment of the mA and/or kV according to patient size, and/or use of iterative reconstruction technique. COMPARISON: 03/21/2025 FINDINGS: Vertebrae: Posterior osteophyte formation and/or calcified old posterior disc extension, posterior central C5-C6 and right posterior C6-C7 with possible mild impingement on the anterior cord at C6-C7. Multilevel degenerative joint disease within the facets. Discs/spinal canal/neural foramina: Bony foraminal narrowing C3-C6. C5-C6 and to a lesser degree C4-C5 and C6-C7 degenerative disc disease. Soft tissues: No acute findings. Vasculature: Scattered calcified atherosclerotic plaque is noted within the arterial system. Lung apices: Some emphysematous change within the lung apices. IMPRESSION: 1. Posterior osteophyte formation and/or calcified old posterior disc extension, posterior central C5-C6 and right posterior C6-C7 with possible mild impingement on the anterior cord at C6-C7. 2. No evidence of acute fracture with degenerative and/or chronic changes as described. Interpreted by: Urbano Chapman MD Signed by: Urbano Chapman MD 06/05/25 Final resultNormalMerMt. [facility]inai Hospital Cervical spine WO contraston 06-05-2025 1. Posterior osteophyte formation and/or calcified old posterior disc extension, posterior central C5-C6 and right posterior C6-C7 with possible mild impingement on the anterior cord at C6-C7. 2. No evidence of acute fracture with degenerative and/or chronic changes as described. [facility] CONSOLIDATED EXAM: CT Cervical Spine Without Intravenous Contrast EXAM DATE/TIME: 06/05/2025 4:24 pm CLINICAL HISTORY: ORDERING SYSTEM PROVIDED HISTORY: fall TECHNOLOGIST PROVIDED HISTORY: fall Decision Support Exception - unselect if not a suspected or confirmed emergency medical condition->Emergency Medical Condition (MA) TECHNIQUE: Axial computed tomography images of the cervical spine without intravenous contrast. This CT exam was performed using one or more of the following dose reduction techniques: automated exposure control, adjustment of the mA and/or kV according to patient size, and/or use of iterative reconstruction technique. COMPARISON: 03/21/2025 FINDINGS: Vertebrae: Posterior osteophyte formation and/or calcified old posterior disc extension, posterior central C5-C6 and right posterior C6-C7 with possible mild impingement on the anterior cord at C6-C7. Multilevel degenerative joint disease within the facets. Discs/spinal canal/neural foramina: Bony foraminal narrowing C3-C6. C5-C6 and to a lesser degree C4-C5 and C6-C7 degenerative disc disease. Soft tissues: No acute findings. Vasculature: Scattered calcified atherosclerotic plaque is noted within the arterial system. Lung apices: Some emphysematous change within the lung apices. [facility] Urbano Nichols MD - 06/05/2025 EXAM: CT Cervical Spine Without Intravenous Contrast EXAM DATE/TIME: 06/05/2025 4:24 pm CLINICAL HISTORY: ORDERING SYSTEM PROVIDED HISTORY: fall TECHNOLOGIST PROVIDED HISTORY: fall Decision Support Exception - unselect if not a suspected or confirmed emergency medical condition->Emergency Medical Condition (MA) TECHNIQUE: Axial computed tomography images of the cervical spine without intravenous contrast. This CT exam was performed using one or more of the following dose reduction techniques: automated exposure control, adjustment of the mA and/or kV according to patient size, and/or use of iterative reconstruction technique. COMPARISON: 03/21/2025 FINDINGS: Vertebrae: Posterior osteophyte formation and/or calcified old posterior disc extension, posterior central C5-C6 and right posterior C6-C7 with possible mild impingement on the anterior cord at C6-C7. Multilevel degenerative joint disease within the facets. Discs/spinal canal/neural foramina: Bony foraminal narrowing C3-C6. C5-C6 and to a lesser degree C4-C5 and C6-C7 degenerative disc disease. Soft tissues: No acute findings. Vasculature: Scattered calcified atherosclerotic plaque is noted within the arterial system. Lung apices: Some emphysematous change within the lung apices. IMPRESSION: 1. Posterior osteophyte formation and/or calcified old posterior disc extension, posterior central C5-C6 and right posterior C6-C7 with possible mild impingement on the anterior cord at C6-C7. 2. No evidence of acute fracture with degenerative and/or chronic changes as described. [facility] CenterRad[facility] observation (narrative)[facility] HEAD WO CONTRASTon [id number] HEAD WO CONTRASTEXAM: CT Head Without Intravenous Contrast EXAM DATE/TIME: 06/05/2025 4:24 pm CLINICAL HISTORY: ORDERING SYSTEM PROVIDED HISTORY: fall TECHNOLOGIST PROVIDED HISTORY: Fall TECHNIQUE: Axial computed tomography images of the head/brain without intravenous contrast. This CT exam was performed using one or more of the following dose reduction techniques: automated exposure control, adjustment of the mA and/or kV according to patient size, and/or use of iterative reconstruction technique. COMPARISON: No relevant prior studies available. FINDINGS: Brain: No acute findings. No hemorrhage. No significant white matter disease. Prominence of the sulci and/or CSF spaces suggests a mild degree of cerebral atrophy. Ventricles: No acute findings. No ventriculomegaly. Bones/joints: No acute findings. No acute fracture. Soft tissues: No acute findings. Sinuses: Unremarkable as visualized. No acute sinusitis. Mastoid air cells: Unremarkable as visualized. No mastoid effusion. IMPRESSION: 1. No acute intracranial abnormality noted. 2. Prominence of the sulci and/or CSF spaces suggests a mild degree of cerebral atrophy. Interpreted by: Urbano Chapman MD Signed by: Urbano Chapman MD 06/05/25 Final resultNormalChildren's Hospital for Rehabilitation Head WO contraston 06-05-2025 1. No acute intracranial abnormality noted. 2. Prominence of the sulci and/or CSF spaces suggests a mild degree of cerebral atrophy. [facility] CONSOLID[facility] EXAM: CT Head Without Intravenous Contrast EXAM DATE/TIME: 06/05/2025 4:24 pm CLINICAL HISTORY: ORDERING SYSTEM PROVIDED HISTORY: fall TECHNOLOGIST PROVIDED HISTORY: Fall TECHNIQUE: Axial computed tomography images of the head/brain without intravenous contrast. This CT exam was performed using one or more of the following dose reduction techniques: automated exposure control, adjustment of the mA and/or kV according to patient size, and/or use of iterative reconstruction technique. COMPARISON: No relevant prior studies available. FINDINGS: Brain: No acute findings. No hemorrhage. No significant white matter disease. Prominence of the sulci and/or CSF spaces suggests a mild degree of cerebral atrophy. Ventricles: No acute findings. No ventriculomegaly. Bones/joints: No acute findings. No acute fracture. Soft tissues: No acute findings. Sinuses: Unremarkable as visualized. No acute sinusitis. Mastoid air cells: Unremarkable as visualized. No mastoid effusion. [facility] CONSOLIDATEDUrbano Chapman MD - 06/05/2025 EXAM: CT Head Without Intravenous Contrast EXAM DATE/TIME: 06/05/2025 4:24 pm CLINICAL HISTORY: ORDERING SYSTEM PROVIDED HISTORY: fall TECHNOLOGIST PROVIDED HISTORY: Fall TECHNIQUE: Axial computed tomography images of the head/brain without intravenous contrast. This CT exam was performed using one or more of the following dose reduction techniques: automated exposure control, adjustment of the mA and/or kV according to patient size, and/or use of iterative reconstruction technique. COMPARISON: No relevant prior studies available. FINDINGS: Brain: No acute findings. No hemorrhage. No significant white matter disease. Prominence of the sulci and/or CSF spaces suggests a mild degree of cerebral atrophy. Ventricles: No acute findings. No ventriculomegaly. Bones/joints: No acute findings. No acute fracture. Soft tissues: No acute findings. Sinuses: Unremarkable as visualized. No acute sinusitis. Mastoid air cells: Unremarkable as visualized. No mastoid effusion. IMPRESSION: 1. No acute intracranial abnormality noted. 2. Prominence of the sulci and/or CSF spaces suggests a mild degree of cerebral atrophy. [facility] MontgomeryRadiology Study observation (narrative)[facility] MontgomeryCT Head WO contrastOrdered By: Urbano Chapman on [id number] [facility] Work Phone: Comp Metabolic Profon [id number] [Mass/Vol]3.2 g/dLLow3.5-5.2[facility] HospitalComment on above:Performed By: #### PTT #### [facility] [address] [place] [address] [place] [address] Ammunition Assembly Laborer: Renan Huerta MDAlbumin/Glob Ratio1.0Wttyeo2.0-2.5[facility] - AndersonComment on above:Performed By: #### PTT #### [facility] [address] [place] [address] [place] [address] Ammunition Assembly Laborer: Abdi Martinez Phos56 U/LLyeewq31-322GcppyOur Lady Of Mercy Hospital - AndersonComment on above:Performed By: #### PTT #### [address] [place] [address] Ammunition Assembly Laborer: Renan Huerta MDALT [Catalytic activity/Vol]44 U/BSdpi09-25HutzeOur Lady Of Mercy Hospital - AndersonComment on above:Performed By: #### PTT #### [facility] [facility] [address] [place] [address] [place] [place], [place] [id number] Ammunition [employer] Laborer: Renan Huerta MDAnion gap [Moles/Vol]6 mmol/LLow9-16MerRockville General HospitalComment on above:Performed By: #### PTT #### [address] [place] [address] Ammunition [employer] Laborer: Renan Huerta MDAST [Catalytic activity/Vol]83 U/OTjqp13-36UeseiOur Lady Of Mercy Hospital - AndersonComment on above:Result Comment: Specimen hemolysis has exceeded the interference as defined by Sharath. Value may be falsely increased. Suggest recollection if clinically indicated.Performed By: #### PTT #### [address] [place], [place] [address]83 Ammunition Assembly Laborer: Renan Huerta MDBilirubin [Mass/Vol]0.5 mg/dLNormal0.00-1.20[facility] - AndersonComment on above:Performed By: #### PTT #### [address] [place], [place] [address]83 Ammunition Assembly Laborer: Renan Huerta MDBUN/CRE Vgtlw04Xjqwcu8-20[facility] Comment on above:Performed By: #### PTT #### [address] [place], [place] [address]83 Ammunition Assembly Laborer: TUAN Martinezalcium [Mass/Vol]7.0 mg/dLLow8.6-10.4[facility] Hospital - AndersonComment on above:Performed By: #### PTT #### [address] [place], [place] 264[address]83 Ammunition Assembly Laborer: TUAN Martinezhloride [Moles/Vol]108 mmol/EYqab70-584JfqayOur Lady Of Mercy Hospital - AndersonComment on above:Performed By: #### PTT #### [address] [place] [address] Ammunition Assembly Laborer: TUAN MartinezO2 [Moles/Vol]24 mmol/TCsddzd36-72ZypruOur Lady Of Mercy Hospital - AndersonComment on above:Performed By: #### PTT #### [address] [place] [address] Ammunition Assembly Laborer: TUAN Martinezreatinine [Mass/Vol]1.0 mg/dLHigh0.50-0.90Our [facility] Mer[facility] Hospital - AndersonComment on above:Performed By: #### PTT #### [address] [place] [address] Ammunition Assembly Laborer: Renan Huerta MDGFR/1.73 sq M.predicted among non-blacks MDRD (S/P/Bld) [Vol rate/Area]55 mL/min/{1.73_m2}Low>60Our [facility] Hospital - AndersonComment on above:Result Comment: These results are not intended for [...] or following therapy that affects renal tubular secretion.Performed By: #### PTT #### [address] [place] [address] Ammunition Assembly Laborer: Renan Huerta MDGlucose [Mass/Vol]68 mg/zJYko48-52PyupnFirelands Regional Medical Center South CampusComment on above:Performed By: #### PTT #### [address] [place] [address] Ammunition Assembly Laborer: Renan Huerta MDPotassium [Moles/Vol]5.1 mmol/LNormal3.7-5.3Mercy Lubbock HospitalComment on above:Result Comment: Specimen hemolysis has exceeded the interference as defined by Sharath. Value may be falsely increased. Suggest recollection if clinically indicated.Performed By: #### PTT #### [facility] [address] [place] [address] [place] [address] Ammunition Assembly Laborer: KAREEN Martinezrotein [Mass/Vol]5.5 g/dLLow6.6-8.7Our [facility] Hospital - AndersonComment on above:Performed By: #### PTT #### [address] [place], [place] 927[address]83 Ammunition Assembly Laborer: BURKE Martinezodium [Moles/Vol]138 mmol/QHmigha086-640QrbmoOur Lady Of Mercy Hospital - AndersonComment on above:Performed By: #### PTT #### [address] [place], [place] 569[address]83 Ammunition Assembly Laborer: Renan Huerta MDUrea nitrogen [Mass/Vol]17 mg/dLNormal8-23Our [facility] Hospital - AndersonComment on above:Performed By: #### PTT #### [address] [place] [address] Ammunition Assembly Laborer: TUAN Martinezomprehensive Metabolic Panelon 05-15-1174Mmshpke [Mass/Vol]3.2 g/dLLow3.5 - 5.2 g/dLBon [facility] HospitalAlbumin/Globulin [Mass ratio]1.4 {ratio}1.0 - 2.5Bon [facility] HealthALP [Catalytic activity/Vol]56 U/L35 - 104 U/LBon [facility] HospitalALT [Catalytic activity/Vol]44 U/LHigh10 - 35 U/LBon [facility] HospitalAnion gap [Moles/Vol]6 mmol/LLow9 - 16 mmol/LBon [facility] HealthAST [Catalytic activity/Vol]83 U/LHigh10 - 35 U/LBon [facility] Community HospitalComment on above:Specimen hemolysis has exceeded the interference as defined by Sharath. Value may be falsely increased. Suggest recollection if clinically indicated. Bilirubin [Mass/Vol]0.5 mg/dL0.00 - 1.20 mg/dLBon [facility] HealthCalcium [Mass/Vol]7.0 mg/dLLow8.6 - 10.4 mg/dLBon [facility] HealthChloride [Moles/Vol]108 mmol/LHigh98 - 107 mmol/LBon [facility] HealthCO2 [Moles/Vol] 24 mmol/L20 - 31 mmol/LBon [facility] HealthCreatinine [Mass/Vol]1.0 mg/dL High0.50 - 0.90 mg/dLBon [facility] CenterEduquia HealthEst, Glom Filt Hzgt21Zcl- PINFBon Wooster Community HospitalComment on above: These results are not intended [...] therapy that affects renal tubular secretion. Glucose [Mass/Vol]68 mg/dLLow74 - 99 mg/dLBon [facility] Mama HealthPotassium [Moles/Vol]5.1 mmol/L3.7 - 5.3 mmol/LBon [facility] Outcome ReferralsComment on above: Specimen hemolysis has exceeded the interference as defined by Sharath. Value may be falsely increased. Suggest recollection if clinically indicated. Protein [Mass/Vol]5.5 g/dLLow6.6 - 8.7 g/dLBon [facility] [employer] HealthSodium [Moles/Vol]138 mmol/L136 - 145 mmol/LBon [facility] Mama Outcome ReferralsUrea nitrogen [Mass/Vol]17 mg/dL8 - 23 mg/dLBon [facility] Mama Outcome ReferralsUrea nitrogen/Creatinine [Mass ratio]17 mg/mg9 - 20Bon [facility] Medical CenterColatrisNo Panel Informationon [id number] acute osseous abnormality involving the left tib fib or left ankle. [facility] RIS CONSOLIDATEDEXAMINATION: THREE XRAY VIEWS OF THE LEFT ANKLE; 2 XRAY VIEWS OF THE LEFT TIBIA AND FIBULA 06/05/2025 4:27 pm COMPARISON: March 20, 2025 HISTORY: ORDERING SYSTEM PROVIDED HISTORY: fall TECHNOLOGIST PROVIDED HISTORY: fall FINDINGS: Left tib fib: No acute fracture or dislocation. Moderate-advanced left knee joint space narrowing. No destructive or erosive osseous change. Left ankle: No fracture or dislocation. Ankle mortise appears intact. Extensive vascular/atherosclerotic calcifications. [facility] Maribel Pozo MD - 06/05/2025 EXAMINATION: THREE XRAY VIEWS OF THE LEFT ANKLE; 2 XRAY VIEWS OF THE LEFT TIBIA AND FIBULA 06/05/2025 4:27 pm COMPARISON: March 20, 2025 HISTORY: ORDERING SYSTEM PROVIDED HISTORY: fall TECHNOLOGIST PROVIDED HISTORY: fall FINDINGS: Left tib fib: No acute fracture or dislocation. Moderate-advanced left knee joint space narrowing. No destructive or erosive osseous change. Left ankle: No fracture or dislocation. Ankle mortise appears intact. Extensive vascular/atherosclerotic calcifications. IMPRESSION: No acute osseous abnormality involving the left tib fib or left ankle. [facility] CenterRadiology Study observation (narrative)[facility] MontgomeryInterpretation and review of laboratory resultsAbnormalWarren Memorial Hospital 06-05-2025 INR Coag (PPP) [Relative time]1.1 {INR}NormalOur Lady Of Mercy Hospital - AndersonComment on above:Result Comment: Therapeutic Range: Moderate Anticoagulant Intensity: INR = 2.0-3.0 High Anticoagulant Intensity: INR = 2.5-3.5Performed By: #### CMPX, PT, CDP #### [address] [place] [address] Ammunition Assembly Laborer: LIZETH Martinez Coag (PPP) [Time]14.6 jEgrqtr48.0-15.0Our [facility] Hospital - AndersonComment on above:Performed By: #### CMPX, PT, CDP #### [address] [place] [address] Ammunition [employer] Laborer: Anselmo Martinez XR Chest AP single viewon . Right lower lobe opacities, possibly pneumonia. Follow-up for resolution is recommended. 2. Small bilateral pleural effusions. [facility] RIS CONSOLIDATEDEXAM: 1 VIEW(S) XRAY OF THE CHEST 06/05/2025 04:37:58 PM COMPARISON: 03/21/2025 CLINICAL HISTORY: dyspnea. FINDINGS: LINES, TUBES AND DEVICES: Aortic stent noted. Left chest pacemaker noted. IVC filter noted. LUNGS AND PLEURA: Right lower lobe opacities, may represent atelectasis or consolidation. Mild pulmonary edema. Bilateral pleural effusions. No pneumothorax. HEART AND MEDIASTINUM: Cardiomegaly. Aortic stent noted. Left chest pacemaker noted. IVC filter noted. BONES AND SOFT TISSUES: No acute osseous abnormality. [facility] Shayy Martines MD - 06/05/2025 EXAM: 1 VIEW(S) XRAY OF THE CHEST 06/05/2025 04:37:58 PM COMPARISON: 03/21/2025 CLINICAL HISTORY: dyspnea. FINDINGS: LINES, TUBES AND DEVICES: Aortic stent noted. Left chest pacemaker noted. IVC filter noted. LUNGS AND PLEURA: Right lower lobe opacities, may represent atelectasis or consolidation. Mild pulmonary edema. Bilateral pleural effusions. No pneumothorax. HEART AND MEDIASTINUM: Cardiomegaly. Aortic stent noted. Left chest pacemaker noted. IVC filter noted. BONES AND SOFT TISSUES: No acute osseous abnormality. IMPRESSION: 1. Right lower lobe opacities, possibly pneumonia. Follow-up for resolution is recommended. 2. Small bilateral pleural effusions. [facility] FanHeroRadiology Study observation (narrative)[facility] SpeakUp [facility] Coast Medical Centerable XR Chest AP single viewOrdered By: Shayy Tyson on 06-05-2025 [facility] [employer]ero Work Phone: [phone]-WMHlo [id number] Coag (PPP) [Relative time] 1.1 {INR}[facility] HospitalThe Hudson Consulting GroupComment on above: Therapeutic Range: Moderate Anticoagulant Intensity: INR = 2.0-3.0 High Anticoagulant Intensity: INR = 2.5-3.5 PT Coag (PPP) [Time]14.6 sBon [facility]1Mind [facility] MamaBon [facility] Troponinon 12-19-4026Hjmliokljqkxiy and review of laboratory resultsAbnormalLewisgale Hospital MontgomeryTroponin I.cardiac High sensitivity method [Mass/Vol]50 ng/L High0 - 14 ng/LBon [facility] HospitalComment on above:High Sensitivity Troponin values cannot be compared with other Troponin methodologies.Bon [facility] HospitalTroponin, High Sens50 ng/LHigh0-14Our [facility] Hospital - AndersonComment on above:Result Comment: High Sensitivity Troponin values cannot be compared with other Troponin methodologies.Performed By: #### BNP, CBC, BMP #### [address] [place], [place] [id number] Ammunition Assembly Laborer: Juan Martinez I.cardiac High sensitivity method [Mass/Vol]53 ng/LCritically high0 - 14 ng/LBon [facility] HospitalComup health system on above:High Sensitivity Troponin values cannot be compared with other Troponin methodologies.Troponin, High Sens53 ng/LCritically high0-14[facility] Comment on above:Result Comment: High Sensitivity Troponin values cannot be compared with other Troponin methodologies.Performed By: #### PTT #### [facility] [address] [place] [address] Ammunition Assembly Laborer: JUDITH MartinezR ANKLE LEFT (MIN 3 VIEWS)on [id number] ANKLE LEFT (MIN 3 VIEWS)EXAMINATION: THREE XRAY VIEWS OF THE LEFT ANKLE; 2 XRAY VIEWS OF THE LEFT TIBIA AND FIBULA 06/05/2025 4:27 pm COMPARISON: March 20, 2025 HISTORY: ORDERING SYSTEM PROVIDED HISTORY: fall TECHNOLOGIST PROVIDED HISTORY: fall FINDINGS: Left tib fib: No acute fracture or dislocation. Moderate-advanced left knee joint space narrowing. No destructive or erosive osseous change. Left ankle: No fracture or dislocation. Ankle mortise appears intact. Extensive vascular/atherosclerotic calcifications. IMPRESSION: No acute osseous abnormality involving the left tib fib or left ankle. Interpreted by: Maribel Castillo MD Signed by: Maribel Castillo MD 06/05/25 Final resultNormalOur Lady Of Mercy Hospital - AndersonXR ANKLE RIGHT (MIN 3 VIEWS)on 06-05-2025 XR ANKLE RIGHT (MIN 3 VIEWS)EXAMINATION: THREE XRAY VIEWS OF THE RIGHT ANKLE 06/05/2025 4:27 pm COMPARISON: None HISTORY: ORDERING SYSTEM PROVIDED HISTORY: fall TECHNOLOGIST PROVIDED HISTORY: fall FINDINGS: The ankle mortise is intact. No fracture or dislocation is seen. The bones are osteopenic. There is moderate soft tissue swelling around the ankle. The joint spaces are intact. There are vascular calcifications throughout the lower leg. IMPRESSION: Diffuse osteopenia limiting the exam with no obvious acute bony abnormality. Moderate soft tissue swelling around the ankle. Interpreted by: Milton Jones MD Signed by: Milton Jones MD 06/05/25 Final resultNormalMerRockville General HospitalXR Ankle - left 3 Viewson 06-05-2025 Radiology Study observation (narrative)[facility] Ankle - right 3 Viewson [id number] osteopenia limiting the exam with no obvious acute bony abnormality. Moderate soft tissue swelling around the ankle. [facility] RIS CONSOLIDATEDEXAMINATION: THREE XRAY VIEWS OF THE RIGHT ANKLE 06/05/2025 4:27 pm COMPARISON: None HISTORY: ORDERING SYSTEM PROVIDED HISTORY: fall TECHNOLOGIST PROVIDED HISTORY: fall FINDINGS: The ankle mortise is intact. No fracture or dislocation is seen. The bones are osteopenic. There is moderate soft tissue swelling around the ankle. The joint spaces are intact. There are vascular calcifications throughout the lower leg. [facility] Milton Yin MD - 06/05/2025 EXAMINATION: THREE XRAY VIEWS OF THE RIGHT ANKLE 06/05/2025 4:27 pm COMPARISON: None HISTORY: ORDERING SYSTEM PROVIDED HISTORY: fall TECHNOLOGIST PROVIDED HISTORY: fall FINDINGS: The ankle mortise is intact. No fracture or dislocation is seen. The bones are osteopenic. There is moderate soft tissue swelling around the ankle. The joint spaces are intact. There are vascular calcifications throughout the lower leg. IMPRESSION: Diffuse osteopenia limiting the exam with no obvious acute bony abnormality. Moderate soft tissue swelling around the ankle. [facility] MontgomeryRadiology Study observation (narrative)[facility] Ankle - right 3 ViewsOrdered By: Milton Jones on [id number] Regional [facility] Center Outcome Referrals Work Phone: xr CHEST PORTABLEon [id number] CHEST PORTABLEEXAM: 1 VIEW(S) XRAY OF THE CHEST 06/05/2025 04:37:58 PM COMPARISON: 03/21/2025 CLINICAL HISTORY: dyspnea. FINDINGS: LINES, TUBES AND DEVICES: Aortic stent noted. Left chest pacemaker noted. IVC filter noted. LUNGS AND PLEURA: Right lower lobe opacities, may represent atelectasis or consolidation. Mild pulmonary edema. Bilateral pleural effusions. No pneumothorax. HEART AND MEDIASTINUM: Cardiomegaly. Aortic stent noted. Left chest pacemaker noted. IVC filter noted. BONES AND SOFT TISSUES: No acute osseous abnormality. IMPRESSION: 1. Right lower lobe opacities, possibly pneumonia. Follow-up for resolution is recommended. 2. Small bilateral pleural effusions. Interpreted by: Shayy Tyson MD Signed by: Shayy Tyson MD 06/05/25 Final resultNormUniversity Hospitals Ahuja Medical CenterXR TIBIA FIBULA LEFT (2 VIEWS)on [id number] TIBIA FIBULA LEFT (2 VIEWS)EXAMINATION: THREE XRAY VIEWS OF THE LEFT ANKLE; 2 XRAY VIEWS OF THE LEFT TIBIA AND FIBULA 06/05/2025 4:27 pm COMPARISON: March 20, 2025 HISTORY: ORDERING SYSTEM PROVIDED HISTORY: fall TECHNOLOGIST PROVIDED HISTORY: fall FINDINGS: Left tib fib: No acute fracture or dislocation. Moderate-advanced left knee joint space narrowing. No destructive or erosive osseous change. Left ankle: No fracture or dislocation. Ankle mortise appears intact. Extensive vascular/atherosclerotic calcifications. IMPRESSION: No acute osseous abnormality involving the left tib fib or left ankle. Interpreted by: Maribel Castillo MD Signed by: Maribel Castillo MD 06/05/25 Final resultNormUniversity Hospitals Ahuja Medical CenterXR TIBIA FIBULA RIGHT (2 VIEWS)on [id number] TIBIA FIBULA RIGHT (2 VIEWS)EXAMINATION: 2 XRAY VIEWS OF THE RIGHT TIBIA AND FIBULA 06/05/2025 4:27 pm COMPARISON: June 14, 2018 HISTORY: ORDERING SYSTEM PROVIDED HISTORY: fall TECHNOLOGIST PROVIDED HISTORY: fall FINDINGS: Partially visualize right knee total arthroplasty noted. There is perihardware lucency involving the distal femoral head and proximal tibial orthopedic components which could indicate hardware loosening. There is no acute fracture or dislocation. IMPRESSION: No acute fracture. Perihardware lucency involving the distal femoral head and proximal tibial orthopedic components could indicate hardware loosening. Interpreted by: Maribel Castillo MD Signed by: Mairbel Castillo MD 06/05/25 Final resultNormalMerRockville General HospitalXR Tibia and Fibula - right 2 Viewson [id number] acute fracture. Perihardware lucency involving the distal femoral head and proximal tibial orthopedic components could indicate hardware loosening. [facility] CONSOLIDATEDEXAMINATION: 2 XRAY VIEWS OF THE RIGHT TIBIA AND FIBULA 06/05/2025 4:27 pm COMPARISON: June 14, 2018 HISTORY: ORDERING SYSTEM PROVIDED HISTORY: fall TECHNOLOGIST PROVIDED HISTORY: fall FINDINGS: Partially visualize right knee total arthroplasty noted. There is perihardware lucency involving the distal femoral head and proximal tibial orthopedic components which could indicate hardware loosening. There is no acute fracture or dislocation. [facility] Maribel Ortega MD - 06/05/2025 EXAMINATION: 2 XRAY VIEWS OF THE RIGHT TIBIA AND FIBULA 06/05/2025 4:27 pm COMPARISON: June 14, 2018 HISTORY: ORDERING SYSTEM PROVIDED HISTORY: fall TECHNOLOGIST PROVIDED HISTORY: fall FINDINGS: Partially visualize right knee total arthroplasty noted. There is perihardware lucency involving the distal femoral head and proximal tibial orthopedic components which could indicate hardware loosening. There is no acute fracture or dislocation. IMPRESSION: No acute fracture. Perihardware lucency involving the distal femoral head and proximal tibial orthopedic components could indicate hardware loosening. [facility]1Mind [facility] CenterXR Tibia and Fibula - right 2 ViewsOrdered By: Den Castillo on [id number] Work Phone: CBCon [phone] distribution width (RBC) [Ratio]18.9 %High11.8 - 14.4 %[facility] MontgomeryHematocrit (Bld) [Volume fraction]26.2 %Low36.3 - 47.1 %[facility] MontgomeryHemoglobin (Bld) [Mass/Vol]8.4 g/dLLow11.9 - 15.1 g/dLBon [facility] HospitalInterpretation and review of laboratory resultsAbnormalBon [facility] (RBC) [Entitic mass]31.5 pg25.2 - 33.5 pgBon Secours Mercy HealthMCHC (RBC) [Mass/Vol]32.1 g/dL 28.4 - 34.8 g/dLBon [facility] Valley HospitalV (RBC) [Entitic vol]98.1 fL82.6 - 102.9 fLLewisgale Hospital MontgomeryNucleated RBC/100 WBC (Bld) [Ratio]0.0 %0.0 per 100 WBCLewisgale Hospital MontgomeryPlatelet mean volume (Bld) [Entitic vol]9.9 fL8.1 - 13.5 fLLewisgale Hospital MontgomeryPlatelets (Bld) [#/Vol]115 10*3/uLLowBon [facility] HospitalRBC (Bld) [#/Vol]2.67 10*6/uLLow3.95 - 5.11 m/uLLewisgale Hospital MontgomeryWBC other (Bld) [#/Vol]4.6Bon [facility] HospitalErythrocyte distribution width (RBC) [Ratio]18.9 %High11.8-14.4[facility] - AndersonComment on above:Performed By: #### BNP, CBC, BMP #### [address] [place] [address] Ammunition Assembly Laborer: Renan Huerta MDHematocrit (Bld) [Volume fraction]26.2 %Low 36.3-47.1MercConnecticut HospiceComment on above:Performed By: #### BNP, CBC, BMP #### [address] [place] [address] Ammunition Assembly Laborer: Renan Huerta MDHemoglobin (Bld) [Mass/Vol]8.4 g/dLLow11.9-15.1 [facility] - AndersonComment on above:Performed By: #### BNP, CBC, BMP #### [address] [place] [address] Ammunition Assembly Laborer: SANDRA MartinezCH (RBC) [Entitic mass]31.5 fzXfabej00.2-33.5 [facility] - AndersonComment on above:Performed By: #### BNP, CBC, BMP #### [address] [place] [address] Ammunition Assembly Laborer: AMINAH MartinezC (RBC) [Mass/Vol]32.1 g/tIVholav36.4-34.8[facility] HospitalComment on above:Performed By: #### BNP, CBC, BMP #### [address] [place], [place] [id number] Ammunition Assembly Laborer: SANDRA MartinezCV (RBC) [Entitic vol]98.1 iAYdtlmc65.6-102.9 [facility] - AndersonComment on above:Performed By: #### BNP, CBC, BMP #### [address] [place], [place] [address]83 Ammunition Assembly Laborer: WILLARD Martinez Automated0.0 per 100 WBCNormal0.0[facility] HospitalComment on above:Performed By: #### BNP, CBC, BMP #### [address] [place], [place] [address]283 Ammunition Assembly Laborer: Sal Martinez mean volume (Bld) [Entitic vol]9.9 fL Normal8.1-13.5[facility] - AndersonComment on above:Performed By: #### BNP, CBC, BMP #### [address] [place] [address] Ammunition Assembly Laborer: Maggie Martinez (Bld) [#/Vol]115 10*3/eGWuw539-164Bffov Tiffin HospitalComment on above:Performed By: #### BNP, CBC, BMP #### [address] [place], [place] [address] Ammunition Assembly Laborer: NATASHA MartinezBC (Bld) [#/Vol]2.67 10*6/uLLow3.95-5.11[facility] HospitalComment on above:Performed By: #### BNP, CBC, BMP #### [address] [place] [address] Ammunition Assembly Laborer: Renan uHerta MDWBC (Bld) [#/Vol]4.6 10*3/uLNormal3.5-11.3[facility] HospitalComment on above:Performed By: #### BNP, CBC, BMP #### [address] [place] [address] Ammunition Assembly Laborer: Morteza Martinez [id number] distribution width (RBC) [Ratio]18.9 %High11.8-14.4[facility] HospitalComment on above:Performed By: #### PTT #### [address] [place] [address] Ammunition Assembly Laborer: Renan Huerta MDHematocrit (Bld) [Volume fraction]26.4 %Low 36.3-47.1MChildren's Hospital for Rehabilitation HospitalComment on above:Performed By: #### PTT #### [address] [place] [address] Ammunition Assembly Laborer: Renan Huerta MDHemoglobin (Bld) [Mass/Vol]8.5 g/dLLow11.9-15.1 [facility] HospitalComment on above:Performed By: #### PTT #### [address] [place] [address] Ammunition Assembly Laborer: SANDRA MartinezCH (RBC) [Entitic mass]30.8 zePzjwcy63.2-33.5 [facility] HospitalComment on above:Performed By: #### PTT #### [address] [place], [place] [address] Ammunition Assembly Laborer: AMINAH MartinezC (RBC) [Mass/Vol]32.2 g/zOXdkwfw06.4-34.8[facility] - AndersonComment on above:Performed By: #### PTT #### [address] [place] [address] Ammunition Assembly Laborer: LANCE Martinez (RBC) [Entitic vol]95.7 nSEczikx89.6-102.9 [facility] HospitalComment on above:Performed By: #### PTT #### [address] [place] [address] Ammunition Assembly Laborer: WILLARD Martinez Automated0.0 per 100 WBCNormal0.0[facility] - AndersonComment on above:Performed By: #### PTT #### [address] [place] [address] Ammunition Assembly Laborer: Sal Martinez mean volume (Bld) [Entitic vol]9.8 fL Normal8.1-13.5[facility] - AndersonComment on above:Performed By: #### PTT #### [address] [place] [address] Ammunition Assembly Laborer: Maggie Martinez (Bld) [#/Vol]173 10*3/yGOyqada459-961 [facility] - AndersonComment on above:Performed By: #### PTT #### [address] [place], [place] [address] Ammunition Assembly Laborer: ROLY Martinez (Bld) [#/Vol]2.76 10*6/uLLow3.95-5.11[facility] HospitalComment on above:Performed By: #### PTT #### [address] [place], [place] [address]83 Ammunition Assembly Laborer: MANDO Martinez (Bld) [#/Vol]4.8 10*3/uLNormal3.5-11.3MChildren's Hospital for Rehabilitation HospitalComment on above:Performed By: #### PTT #### [facility] [address] [place] [address] Ammunition Assembly Laborer: Morteza Martinez [id number] distribution width (RBC) [Ratio]18.7 %High11.8 - 14.4 %[facility] MontgomeryHematocrit (Bld) [Volume fraction]28.9 %Low36.3 - 47.1 %[facility] MontgomeryHemoglobin (Bld) [Mass/Vol]9.1 g/dLLow11.9 - 15.1 g/dLBon [facility] HospitalInterpretation and review of laboratory resultsAbnormalBon Secours St[facility] (RBC) [Entitic mass]29.7 pg25.2 - 33.5 pgCommunity Health SystemsHC (RBC) [Mass/Vol]31.5 g/dL 28.4 - 34.8 g/dLBon [facility] HospitalV (RBC) [Entitic vol]94.4 fL82.6 - 102.9 fLLewisgale Hospital MontgomeryNucleated RBC/100 WBC (Bld) [Ratio]0.0 %0.0 per 100 WBCLewisgale Hospital MontgomeryPlatelet mean volume (Bld) [Entitic vol]8.7 fL8.1 - 13.5 fLLewisgale Hospital MontgomeryPlatelets (Bld) [#/Vol]218 10*3/uLLewisgale Hospital MontgomeryRBC (Bld) [#/Vol]3.06 10*6/uLLow3.95 - 5.11 m/[facility] CenterWBC other (Bld) [#/Vol]4.7Bon [facility] Erythrocyte distribution width (RBC) [Ratio]18.7 %High11.8-14.4[facility] - AndersonComment on above:Performed By: #### CMPX, PT, CDP #### [facility] [address] [place] [address] [employer]munition [employer] Laborer: Renan Huerta MDHematocrit (Bld) [Volume fraction]28.9 %Low 36.3-47.1MFirelands Regional Medical Center South CampusComment on above:Performed By: #### CMPX, PT, CDP #### [address] [place], [place] [id number] [employer] Laborer: Renan Huerta MDHemoglobin (Bld) [Mass/Vol]9.1 g/dLLow11.9-15.1 [facility] - AndersonComment on above:Performed By: #### CMPX, PT, CDP #### [address] [place], [place] [id number] [employer] Laborer: SANDRA MartinezCH (RBC) [Entitic mass]29.7 hiKmslpn51.2-33.5 [facility] - AndersonComment on above:Performed By: #### CMPX, PT, CDP #### [address] [place] [id number] Ammunition Assembly Laborer: AMINAH MartinezC (RBC) [Mass/Vol]31.5 g/nRUfaohk14.4-34.8[facility] - AndersonComment on above:Performed By: #### VIDYAX, PT, CDP #### [address] [place], [place] [address]83 [employer] Laborer: SANDRA MartinezCV (RBC) [Entitic vol]94.4 pRQleiaq93.6-102.9 [facility] - AndersonComment on above:Performed By: #### CMPX, PT, CDP #### [address] [place], [place] [address]83 [employer] Laborer: Renan Huerta MDNRBC Automated0.0 per 100 WBCNormal0.0[facility] - AndersonComment on above:Performed By: #### CMPX, PT, CDP #### [address] [place], [place] 375[address]83 [employer] Laborer: KAREEN Martinezlatelet mean volume (Bld) [Entitic vol]8.7 fL Normal8.1-13.5[facility] HospitalComment on above:Performed By: #### CMPX, PT, CDP #### [facility] [address] [place], [place] 129[address]83 Am[employer] Laborer: Maggie Martinez (Bld) [#/Vol]218 10*3/xJFfhiez493-009 [facility] HospitalComment on above:Performed By: #### CMPX, PT, CDP #### [facility] [address] [place], [place] [address]83 Ammunition Assembly Laborer: ROLY Martinez (Bld) [#/Vol]3.06 10*6/uLLow3.95-5.11[facility] - AndersonComment on above:Performed By: #### CMPX, PT, CDP #### [address] [place], [place] [address] Ammunition Assembly Laborer: MANOD Martinez (Bld) [#/Vol]4.7 10*3/uLNormal3.5-11.3MChildren's Hospital for Rehabilitation HospitalComment on above:Performed By: #### CMPX, PT, CDP #### [address] [place], [place] [address]83 [employer] Laborer: MARIA A Martinez with Auto Differentialon [id number] (Bld) [#/Vol]0.00 10*3/uLBon Secours Mercy HealthBasophils/100 WBC (Bld)0 %0 - 2 %[facility] HealthEosinophils (Bld) [#/Vol]0.00 10*3/uLBon Secours Mercy HealthEosinophils/100 WBC (Bld)0 %Low1 - 4 %[facility] HealthErythrocyte distribution width (RBC) [Ratio]19.0 %High11.8 - 14.4 %[facility] Hematocrit (Bld) [Volume fraction]27.6 %Low36.3 - 47.1 %[facility] Hemoglobin (Bld) [Mass/Vol]8.7 g/dLLow11.9 - 15.1 g/dLBon SecProMedica [facility] Hospital Immature granulocytes (Bld) [#/Vol]0.00 10*3/uLBon SecProMedica Flower HospitalImmature granulocytes/100 WBC (Bld)0 %0Bon SecProMedica Flower HospitalInterpretation and review of laboratory resultsAbnormalBon [facility] HealthLymphocytes/100 WBC (Bld)13 %Low24 - 43 %Bon SecProMedica Flower HospitalLymphocytes/100 WBC (Bld)0.59 %LowBon [facility] HospitalH (RBC) [Entitic mass]29.6 pg25.2 - 33.5 pgBon [facility] HospitalHC (RBC) [Mass/Vol]31.5 g/dL28.4 - 34.8 g/dLBon SecMagruder Memorial HospitalV (RBC) [Entitic vol]93.9 fL82.6 - 102.9 fLLewisgale Hospital Montgomery Monocytes/100 WBC (Bld)6 %3 - 12 %[facility] MontgomeryMonocytes/100 WBC (Bld)0.27 %Bon [facility] HospitalMorphology Davi (Bld) [Interp]NormalBon [facility] HospitalNeutrophils/100 WBC (Bld)81 %High36 - 65 %Bon [facility] HospitalNucleated RBC/100 WBC (Bld) [Ratio]0.0 %0.0 per 100 WBCBon [facility] HealthPlatelet mean volume (Bld) [Entitic vol]9.8 fL8.1 - 13.5 fLBon SecPointe Coupee General Hospital HealthPlatelets (Bld) [#/Vol]182 10*3/uLBon [facility] HealthRBC (Bld) [#/Vol]2.94 10*6/uLLow3.95 - 5.11 m/uLBon [facility] HospitalSegmented neutrophils/100 WBC (Bld)3.64 %Bon SecProMedica Flower HospitalWBC other (Bld) [#/Vol] 4.5[facility] CenterBon SecPointe Coupee General Hospital HealthCBC with Diffon 05-09-2025 Abs. Basophil0.00 k/uLNormal0.0-0.2[facility] HospitalComment on above: Performed By: #### CMPX, PT, CDP #### [address] [place] [address] Ammunition Assembly Laborer: Jared Martinez.Imm.Granulocyte0.00 k/uLNormal0.00-0.30[facility] HospitalComment on above:Performed By: #### CMPX, PT, CDP #### [address] [place] [address] Ammunition Assembly Laborer: Jared Martinez.Neutrophil (Seg)3.64 k/uLNormal1.50-8.10[facility] HospitalComment on above:Performed By: #### STEPHIE, PT, CDP #### [address] [place] [address] Ammunition Assembly Laborer: Renan Huerta MDBasophils/100 WBC (Bld)0 %Normal0-2MChildren's Hospital for Rehabilitation HospitalComment on above:Performed By: #### STEPHIE, PT, CDP #### [address] [place] [address] Ammunition Assembly Laborer: Renan Huerta MDEosinophils (Bld) [#/Vol]0.00 10*3/uLNormal 0.00-0.44[facility] HospitalComment on above:Performed By: #### CMPX, PT, CDP #### [address] [place], [place] [address] Ammunition Assembly Laborer: Renan Huerta MDEosinophils/100 WBC (Bld)0 %Low1-4[facility] HospitalComment on above:Performed By: #### CMPX, PT, CDP #### [address] [place], [facility] Ammunition [employer] Laborer: Renan Sturtz, MDImmature granulocytes/100 WBC (Bld)0 %Udqdnm3Koytk Tiffin HospitalComment on above:Performed By: #### CMPX, PT, CDP #### [address] [place], [place] [address]83 Ammunition Assembly Laborer: Renan Huerta MDLymphocytes (Bld) [#/Vol]0.59 10*3/uLLow1.10-3.70 [facility] HospitalComment on above:Performed By: #### CMPX, PT, CDP #### [address] [place] [address] Ammunition Assembly Laborer: Renan Huerta MDLymphocytes/100 WBC (Bld)13 %Kza24-55JaiomOur Lady Of Mercy Hospital - AndersonComment on above:Performed By: #### CMPX, PT, CDP #### [address] [place] [address] Ammunition Assembly Laborer: SANDRA Martinezonocytes (Bld) [#/Vol]0.27 10*3/uLNormal0.10-1.20 [facility] HospitalComment on above:Performed By: #### CMPX, PT, CDP #### [address] [place] [address] Ammunition [employer] Laborer: SANDRA Martinezonocytes/100 WBC (Bld)6 %Normal3-12[facility] HospitalComment on above:Performed By: #### CMPX, PT, CDP #### [address] [place] [address] Ammunition [employer] Laborer: SANDRA Martinezorphology Davi (Bld) [Interp]NormalNormalOur Lady Of Mercy Hospital - AndersonComment on above:Performed By: #### CMPX, PT, CDP #### [address] [place] [address] Ammunition Assembly Laborer: Renan Huerta MDNeutrophil (Seg)81 %Wbon78-80Ymczl [facility] Comment on above:Performed By: #### CMPX, PT, CDP #### [address] [place], [facility] Ammunition [employer] Laborer: Renan Huerta MDErythrocyte distribution width (RBC) [Ratio]19.0 % High11.8-14.4[facility] - AndersonComment on above:Performed By: #### CMPX, PT, CDP #### [address] [place], [facility] Ammunition Assembly Laborer: Renan Huerta MDHematocrit (Bld) [Volume fraction]27.6 %Low 36.3-47.1MFirelands Regional Medical Center South CampusComment on above:Performed By: #### CMPX, PT, CDP #### [address] [place] [id number] Ammunition Assembly Laborer: Renan Huerta MDHemoglobin (Bld) [Mass/Vol]8.7 g/dLLow11.9-15.1 [facility] AndersonComment on above:Performed By: #### CMPX, PT, CDP #### [address] [place], [facility] Ammunition Assembly Laborer: SANDRA MartinezCH (RBC) [Entitic mass]29.6 zuPjqlsz18.2-33.5 [facility] - AndersonComment on above:Performed By: #### CMPX, PT, CDP #### [address] [place], [place] [address]83 Ammunition Assembly Laborer: AMINAH MartinezC (RBC) [Mass/Vol]31.5 g/eHYswbhg90.4-34.8[facility] AndersonComment on above:Performed By: #### CMPX, PT, CDP #### [address] [place] [address] Ammunition Assembly Laborer: SANDRA MartinezCV (RBC) [Entitic vol]93.9 pOTrhatd81.6-102.9 [facility] AndersonComment on above:Performed By: #### CMPX, PT, CDP #### [address] [place] [address] Ammunition Assembly Laborer: WILLARD Martinez Automated0.0 per 100 WBCNormal0.0[facility] AndersonComment on above:Performed By: #### CMPX, PT, CDP #### [address] [place] [address] Ammunition Assembly Laborer: Sal Martinez mean volume (Bld) [Entitic vol]9.8 fL Normal8.1-13.5[facility] - AndersonComment on above:Performed By: #### CMPX, PT, CDP #### [address] [place], [place] [address] Ammunition Assembly Laborer: Maggie Martinez (Bld) [#/Vol]182 10*3/sUTzxawr259-419 [facility] AndersonComment on above:Performed By: #### CMPX, PT, CDP #### [address] [place] [address] Ammunition Assembly Laborer: ROLY Martinez (Bld) [#/Vol]2.94 10*6/uLLow3.95-5.11[facility] AndersonComment on above:Performed By: #### CMPX, PT, CDP #### [address] [place] [address] Ammunition Assembly Laborer: MANDO Martinez (Bld) [#/Vol]4.5 10*3/uLNormal3.5-11.3MFirelands Regional Medical Center South CampusComment on above:Performed By: #### CMPX, PT, CDP #### [address] [place] [address] Ammunition Assembly Laborer: Renan Huerta MDComp Metabolic Profon [id number] [Mass/Vol] 3.3 g/dLLow3.5-5.2[facility] HospitalComment on above:Performed By: #### CMPX, PT, CDP #### [address] [place] [address] Ammunition Assembly Laborer: Renan Huerta MDAlbumin/Glob Ratio1.0Bxorxr8.0-2.5MerGlenbeigh Hospital HospitalComment on above:Performed By: #### CMPX, PT, CDP #### [address] [place] [address] Ammunition Assembly Laborer: Abdi Martinez Phos53 U/RHmpxki64-067FgnrsOur Lady Of Mercy Hospital - AndersonComment on above:Performed By: #### CMPX, PT, CDP #### [address] [place] [address] Ammunition Assembly Laborer: Renan Huerta MDALT [Catalytic activity/Vol]14 U/QVoepoq51-93EpcfdOur Lady Of Mercy Hospital - AndersonComment on above:Performed By: #### CMPX, PT, CDP #### [address] [place] [address] Ammunition Assembly Laborer: Renan Huerta MDAnimario gap [Moles/Vol]11 mmol/LNormal9-16[facility] - AndersonComment on above:Performed By: #### CMPX, PT, CDP #### [address] [place] [address] Ammunition Assembly Laborer: Renan Huerta MDAST [Catalytic activity/Vol]33 U/BEwvvvp90-97MexeyOur Lady Of Mercy Hospital - AndersonComment on above:Performed By: #### CMPX, PT, CDP #### [address] [place] [address] Ammunition Assembly Laborer: Renan Huerta MDBilirubin [Mass/Vol]0.5 mg/dLNormal0.00-1.20[facility] AndersonComment on above:Performed By: #### CMPX, PT, CDP #### [address] [place], [place] [address]83 Ammunition Assembly Laborer: Renan Huerta MDBUN/CRE Ixxna87Ktyivo4-87Ryrhf [facility] Comment on above:Performed By: #### CMPX, PT, CDP #### [address] [place] [address] Ammunition Assembly Laborer: TUAN Martinezalcium [Mass/Vol]8.3 mg/dLLow8.6-10.4[facility] - AndersonComment on above:Performed By: #### CMPX, PT, CDP #### [address] [place] [address] Ammunition Assembly Laborer: TUAN Martinezhloride [Moles/Vol]105 mmol/UNkgngk43-213JstcjOur Lady Of Mercy Hospital - AndersonComment on above:Performed By: #### CMPX, PT, CDP #### [address] [place] [address] Ammunition Assembly Laborer: Renan Huerta MDCO2 [Moles/Vol]21 mmol/CZowibc68-40MgdncOur Lady Of Mercy Hospital - AndersonComment on above:Performed By: #### CMPX, PT, CDP #### [address] [place] [address] Ammunition Assembly Laborer: TUAN Martinezreatinine [Mass/Vol]1.3 mg/dLHigh0.50-0.90[facility] - AndersonComment on above:Performed By: #### CMPX, PT, CDP #### [address] [place], [place] [id number] Ammunition Assembly Laborer: Renan Huerta MDGFR/1.73 sq M.predicted among non-blacks MDRD (S/P/Bld) [Vol rate/Area]41 mL/min/{1.73_m2}Low>60[facility] HospitalComment on above:Result Comment: These results are not intended for [...] or following therapy that affects renal tubular secretion.Performed By: #### CMPX, PT, CDP #### [address] [place] [address] Ammunition Assembly Laborer: Renan Huerta MDGlucose [Mass/Vol]98 mg/bNMokbpe49-24Kwbbj [facility] HospitalComment on above:Performed By: #### VIDYAX, PT, CDP #### [address] [place], [facility] Ammunition Assembly Laborer: KAREEN Martinezotassium [Moles/Vol]3.5 mmol/LLow3.7-5.3Mohiohealth o'bleness hospitaly [place] HospitalComment on above:Performed By: #### VIDYAX PT, CDP #### [address] [place], [place] [address]83 Ammunition Assembly Laborer: Renan Huerta MDProtein [Mass/Vol]5.7 g/dLLow6.6-8.7[facility] - AndersonComment on above:Performed By: #### VIDYAX, PT, CDP #### [address] [place] [address] Ammunition Assembly Laborer: Renan Huerta MDSodium [Moles/Vol]137 mmol/BAlfkgg231-091NsetnOur Lady Of Mercy Hospital - AndersonComment on above:Performed By: #### CMPX, PT, CDP #### [address] [place] [address] Ammunition Assembly Laborer: Renan Huerta MDUrea nitrogen [Mass/Vol]17 mg/dLNormal8-23[facility] HospitalComment on above:Performed By: #### CMPX, PT, CDP #### [facility] [address] [place] [address] Ammunition Assembly Laborer: Renan Huerta [facility] – TULSAomppromedica toledo hospitalensive Metabolic Panelon [id number] [Mass/Vol]3.3 g/dLLow3.5 - 5.2 g/dLBon [facility] Community HospitalAlbumin/Globulin [Mass ratio]1.4 {ratio}1.0 - 2.5Bon [facility] HospitalALP [Catalytic activity/Vol]53 U/L35 - 104 U/LBon [facility] Community HospitalALT [Catalytic activity/Vol]14 U/L10 - 35 U/LBon [facility] Community HospitalAnion gap [Moles/Vol]11 mmol/L9 - 16 mmol/LBon [facility] Community HospitalAST [Catalytic activity/Vol]33 U/L10 - 35 U/LBon [facility] Community HospitalBilirubin [Mass/Vol]0.5 mg/dL0.00 - 1.20 mg/dL Bon [facility] HospitalCalcium [Mass/Vol]8.3 mg/dLLow8.6 - 10.4 mg/dLBon [facility] Community HospitalChloride [Moles/Vol]105 mmol/L98 - 107 mmol/LBon [facility] Community HospitalCO2 [Moles/Vol]21 mmol/L20 - 31 mmol/LBon [facility] Creatinine [Mass/Vol]1.3 mg/dLHigh0.50 - 0.90 mg/dLBon [facility] Community HospitalEst, Glom Filt Klip83Dep- PINFBon [facility] on above: These results are not intended [...] therapy that affects renal tubular secretion. Glucose [Mass/Vol]98 mg/dL74 - 99 mg/dLBon [facility] Community HospitalInterpretation and review of laboratory resultsAbnormalBon [facility] Community HospitalPotassium [Moles/Vol]3.5 mmol/LLow3.7 - 5.3 mmol/LBon [facility] Community HospitalProtein [Mass/Vol]5.7 g/dLLow6.6 - 8.7 g/dLBon [facility] Community HospitalSodium [Moles/Vol]137 mmol/L136 - 145 mmol/LBon [facility] Community HospitalUrea nitrogen [Mass/Vol]17 mg/dL8 - 23 mg/dLBon [facility] Community HospitalUrea nitrogen/Creatinine [Mass ratio]13 mg/mg 9 - 20Bon [facility] HospitalFerritinon 05-03-2025 Ferritin [Mass/Vol]133 ng/mLLewisgale Hospital MontgomeryComment on above:No reference range established for this age/gender.Ferritin [Mass/Vol]133 ng/mL [facility] HospitalComup health system on above:Result Comment: No reference range established for this age/gender.Performed By: #### BNP, CBC, BMP #### [facility] [address] [place] [address] [place] [address] Ammunition Assembly Laborer: Manfred Martinez Binding Cap.on 05-03-2025% Fe Vfsbrajqge27 % Qhmxhi01-36KxaiqOur Lady Of Mercy Hospital - AndersonComup health system on above:Performed By: #### BNP, CBC, BMP #### [address] [place] [address] Ammunition Assembly Laborer: Jaden Martinezn [Mass/Vol]33 ug/vLHmv88-897AkurtOur Lady Of Mercy Hospital - AndersonComup health system on above:Performed By: #### BNP, CBC, BMP #### [address] [place] [address] Ammunition Assembly Laborer: Myesha Martinez Fe Binding Uva816 ug/jRDzm374-070HpkeaOur Lady Of Mercy Hospital - AndersonComment on above:Performed By: #### BNP, CBC, BMP #### [address] [place] [address] Ammunition Assembly Laborer: Renan Huerta MDUnbound Fe Bind Jon890 ug/cZXvpmfb317-973PrvhaOur Lady Of Mercy Hospital - AndersonComment on above:Performed By: #### BNP, CBC, BMP #### [facility] [address] [place] [address] Ammunition Assembly Laborer: Manfred Martinez and TIBCone Health Moses Cone Hospital [id number] and review of laboratory resultsAbnormalBon Secours University Hospitals Samaritan Medical CenterIron [Mass/Vol]33 ug/dLLow37 - 145 ug/dLBon SecDoctors Hospitaln binding capacity [Mass/Vol] 156 ug/yBNpi786 - 450 ug/dLBon SecDoctors Hospitaln saturation [Mass fraction]21 %20 - 55 %Bon [facility]Po[facility] XansylOVIE743 ug/dL112 - 347 ug/dLBon SecProMedica Flower HospitalNo Panel Informationon [id number] SecProMedica Flower HospitalCBC with Auto Differentialon [id number] (Bld) [#/Vol]0.04 10*3/uLBon [facility]ours [facility] HealthBasophils/100 WBC (Bld)1 %0 - 2 %[facility] Eosinophils (Bld) [#/Vol]0.05 10*3/uLBon Secours University Hospitals Samaritan Medical CenterEosinophils/100 WBC (Bld)1 %1 - 4 %[facility] City Hospitaly HealthErythrocyte distribution width (RBC) [Ratio]18.9 %High11.8 - 14.4 %Bon SecPointe Coupee General Hospital HealthHematocrit (Bld) [Volume fraction]24.6 %Low36.3 - 47.1 %Bon SecSt. Elizabeth Hospitaly HealthHemoglobin (Bld) [Mass/Vol]7.8 g/dLLow11.9 - 15.1 g/dLBon SecProMedica Flower HospitalImmature granulocytes (Bld) [#/Vol][facility] Hospitaly HealthImmature granulocytes/100 WBC (Bld)0 %0[facility] HealthInterpretation and review of laboratory results AbnormalBon Secours Mercy HealthLymphocytes/100 WBC (Bld)12 %Low24 - 43 %[facility] City Hospitaly HealthLymphocytes/100 WBC (Bld)0.71 %LowLewisgale Hospital Montgomery MCH (RBC) [Entitic mass]29.3 pg25.2 - 33.5 pgBon [facility] HospitalHC (RBC) [Mass/Vol]31.7 g/dL28.4 - 34.8 g/dLBon [facility] HospitalV (RBC) [Entitic vol]92.5 fL82.6 - 102.9 fLLewisgale Hospital MontgomeryMonocytes/100 WBC (Bld)5 %3 - 12 %[facility] MontgomeryMonocytes/100 WBC (Bld)0.31 %[facility] MontgomeryNeutrophils/100 WBC (Bld)81 %High36 - 65 %[facility] Nucleated RBC/100 WBC (Bld) [Ratio]0.0 %0.0 per 100 WBCLewisgale Hospital Montgomery Platelet mean volume (Bld) [Entitic vol]9.8 fL8.1 - 13.5 fLLewisgale Hospital MontgomeryPlatelets (Bld) [#/Vol]177 10*3/uLLewisgale Hospital MontgomeryRBC (Bld) [#/Vol]2.66 10*6/uLLow3.95 - 5.11 m/uLLewisgale Hospital MontgomerySegmented neutrophils/100 WBC (Bld)4.60 %[facility] MontgomeryWBC other (Bld) [#/Vol] 5.7Bon [facility] HospitalCBC with Diffon 05-02-2025 Abs. Basophil0.04 k/uLNormal0.00-0.20[facility] - AndersonComment on above: Performed By: #### BNP, CBC, BMP #### [facility] [address] [place] [address] Ammunition Assembly Laborer: Jared Martinez.Imm.Granulocyte<0.01Epabbr9.00-0.30[facility] - AndersonComment on above:Performed By: #### BNP, CBC, BMP #### [facility] [address] [place] [address] Ammunition Assembly Laborer: Jared Martinez.Neutrophil (Seg)4.60 k/uLNormal1.50-8.10[facility] HospitalComment on above:Performed By: #### BNP, CBC, BMP #### [address] [place] [address] Ammunition Assembly Laborer: Renan Huerta MDBasophils/100 WBC (Bld)1 %Normal0-2[facility] HospitalComment on above:Performed By: #### BNP, CBC, BMP #### [address] [place], [place] [address] Ammunition Assembly Laborer: Renan Huerta MDEosinophils (Bld) [#/Vol]0.05 10*3/uLNormal 0.00-0.44[facility] - AndersonComment on above:Performed By: #### BNP, CBC, BMP #### [address] [place], [place] [address] Ammunition Assembly Laborer: Renan Huerta MDEosinophils/100 WBC (Bld)1 %Normal1-4MerGlenbeigh Hospital HospitalComment on above:Performed By: #### BNP, CBC, BMP #### [address] [place] [address] Ammunition Assembly Laborer: Renan Huerta MDErythrocyte distribution width (RBC) [Ratio]18.9 % High11.8-14.4[facility] - AndersonComment on above:Performed By: #### BNP, CBC, BMP #### [address] [place], [place] [address] Ammunition Assembly Laborer: Renan Huerta MDHematocrit (Bld) [Volume fraction]24.6 %Low 36.3-47.1MChildren's Hospital for Rehabilitation HospitalComment on above:Performed By: #### BNP, CBC, BMP #### [address] [place] [address] Ammunition Assembly Laborer: Renan Huerta MDHemoglobin (Bld) [Mass/Vol]7.8 g/dLLow11.9-15.1 [facility] HospitalComment on above:Performed By: #### BNP, CBC, BMP #### [address] [place] [address] Ammunition Assembly Laborer: Renan Huerta MDImmature granulocytes/100 WBC (Bld)0 %Nbhnys8Vdgrx [facility]iffin HospitalComment on above:Performed By: #### BNP, CBC, BMP #### [address] [place] [address] Ammunition Assembly Laborer: Renan Huerta MDLymphocytes (Bld) [#/Vol]0.71 10*3/uLLow1.10-3.70 [facility] - AndersonComment on above:Performed By: #### BNP, CBC, BMP #### [address] [place], [place] [address] Ammunition Assembly Laborer: Mary Martinezmphocytes/100 WBC (Bld)12 %Kyd52-08Hqvke [facility] HospitalComment on above:Performed By: #### BNP, CBC, BMP #### [address] [place], [place] [address] [employer] Assembly Laborer: SANDRA MartinezCH (RBC) [Entitic mass]29.3 mvXdqmha53.2-33.5 [facility] HospitalComment on above:Performed By: #### BNP, CBC, BMP #### [address] [place] [address] Ammunition Assembly Laborer: AMINAH MartinezC (RBC) [Mass/Vol]31.7 g/aQZmawpf92.4-34.8[facility] - AndersonComment on above:Performed By: #### BNP, CBC, BMP #### [address] [place] [address] Ammunition Assembly Laborer: SANDRA MartinezCV (RBC) [Entitic vol]92.5 uHAwohdi93.6-102.9 [facility] - AndersonComment on above:Performed By: #### BNP, CBC, BMP #### [address] [place] [address] Ammunition Assembly Laborer: SANDRA Martinezonocytes (Bld) [#/Vol]0.31 10*3/uLNormal0.10-1.20 [facility] - AndersonComment on above:Performed By: #### BNP, CBC, BMP #### [address] [place], [place] [address] [employer] Laborer: SANDRA Martinezonocytes/100 WBC (Bld)5 %Normal3-12[facility] - AndersonComment on above:Performed By: #### BNP, CBC, BMP #### [address] [place], [facility] [employer]orer: Shirlene Martinezutrophil (Seg)81 %Vgdu88-95XnqpcOur Lady Of Mercy Hospital - [facility] Comment on above:Performed By: #### BNP, CBC, BMP #### [address] [place] [address] Ammunition [employer] Laborer: Renan Huerta MDNRBC Automated0.0 per 100 WBCNormal0.0[facility] - AndersonComment on above:Performed By: #### BNP, CBC, BMP #### [address] [place] [address] Ammunition Assembly Laborer: KAREEN Martinezlatelet mean volume (Bld) [Entitic vol]9.8 fL Normal8.1-13.5[facility] - AndersonComment on above:Performed By: #### BNP, CBC, BMP #### [address] [place] [address] Ammunition Assembly Laborer: KAREEN Martinezlatelets (Bld) [#/Vol]177 10*3/tCRwapwe685-700 [facility] HospitalComment on above:Performed By: #### BNP, CBC, BMP #### [facility] [address] [place], [place] [address] Ammunition Assembly Laborer: ROLY Martinez ([facility]) [#/Vol]2.66 10*6/uLLow3.95-5.11[facility] HospitalComment on above:Performed By: #### BNP, CBC, BMP #### [address] [place] [address] Ammunition Assembly Laborer: MANDO Martinez ([facility]) [#/Vol]5.7 10*3/uLNormal3.5-11.3MChildren's Hospital for Rehabilitation HospitalComment on above:Performed By: #### BNP, CBC, BMP #### [address] [place] [address] Ammunition Assembly Laborer: TUAN Martinezbe[facility] Metabolic Profon 29-86-0108Xfrycjw [Mass/Vol] 3.4 g/dLLow3.5-5.2MChildren's Hospital for Rehabilitation HospitalComment on above:Performed By: #### BNP, CBC, BMP #### [address] [place] [address] Ammunition Assembly Laborer: Renan Huerta MDAlbumin/Glob Ratio1.2Irjndd8.0-2.5[facility] HospitalComment on above:Performed By: #### BNP, CBC, BMP #### [address] [place] [address] Ammunition Assembly Laborer: Gino Martinezline Phos53 U/BWkuqpi89-745BoyzjOur Lady Of Mercy Hospital - AndersonComment on above:Performed By: #### BNP, CBC, BMP #### [facility] [address] [place], [place] [address] Ammunition Assembly Laborer: Renan Huerta MDALT [Catalytic activity/Vol]15 U/HPsksav49-77XupwqOur Lady Of Mercy Hospital - AndersonComment on above:Performed By: #### BNP, CBC, BMP #### [address] [place], [place] [address] [employer]munition Assembly Laborer: Renan Huerta MDAnion gap [Moles/Vol]11 mmol/LNormal9-16MerGlenbeigh Hospital HospitalComment on above:Performed By: #### BNP, CBC, BMP #### [address] [place] [address] Ammunition Assembly Laborer: Renan Huerta MDAST [Catalytic activity/Vol]30 U/XCujtca44-54Edacc [facility] HospitalComment on above:Performed By: #### BNP, CBC, BMP #### [address] [place], [place] [address] Ammunition Assembly Laborer: Renan Huerta MDBilirubin [Mass/Vol]0.4 mg/dLNormal0.00-1.20[facility] - AndersonComment on above:Performed By: #### BNP, CBC, BMP #### [address] [place], [place] [address] Ammunition Assembly Laborer: Renan Huerta MDBUN/CRE Ydhbh25Dgbahr9-79Hklnb [facility] Comment on above:Performed By: #### BNP, CBC, BMP #### [address] [place], [place] [address] Ammunition Assembly Laborer: TUAN Martinezalcium [Mass/Vol]8.0 mg/dLLow8.6-10.4[facility] - AndersonComment on above:Performed By: #### BNP, CBC, BMP #### [address] [place], [place] [address] Ammunition Assembly Laborer: Renan Huerta MDChloride [Moles/Vol]105 mmol/KHmfrwh58-280Ydypf [facility] HospitalComment on above:Performed By: #### BNP, CBC, BMP #### [address] [place] [address] Ammunition Assembly Laborer: TUAN MartinezO2 [Moles/Vol]20 mmol/KWfkqmy20-31RsclpOur Lady Of Mercy Hospital - AndersonComment on above:Performed By: #### PILAR CBC, BMP #### [address] [place] [address] Ammunition Assembly Laborer: TUAN Martinezreatinine [Mass/Vol]1.2 mg/dLHigh0.50-0.90Our [facility] - AndersonComment on above:Performed By: #### CAILIN QUEZADA, BMP #### [address] [place] [address] Ammunition Assembly Laborer: Renan Huerta MDGFR/1.73 sq M.predicted among non-blacks MDRD (S/P/Bld) [Vol rate/Area]43 mL/min/{1.73_m2}Low>60[facility] HospitalComment on above:Result Comment: These results are not intended for [...] or following therapy that affects renal tubular secretion.Performed By: #### CAILIN QUEZADA, BMP #### [address] [place] [address] Ammunition Assembly Laborer: Renan Huerta MDGlucose [Mass/Vol]82 mg/jGUkqkgy84-11Wnkay [place]bock HospitalComment on above:Performed By: #### CAILIN QUEZADA, BMP #### [address] [place] [address] Ammunition Assembly Laborer: KAREEN Martinezotassium [Moles/Vol]4.6 mmol/LNormal3.7-5.3MChildren's Hospital for Rehabilitation HospitalComment on above:Performed By: #### BNP, CBC, BMP #### [address] [place] [address] Ammunition Assembly Laborer: KAREEN Martinezrotein [Mass/Vol]5.6 g/dLLow6.6-8.7Our [facility] Hospital - AndersonComment on above:Performed By: #### BNP, CBC, BMP #### [address] [place] [address] Ammunition Assembly Laborer: BURKE Martinezodium [Moles/Vol]136 mmol/CVlpjwa609-185NgkctOur Lady Of Mercy Hospital - AndersonComment on above:Performed By: #### BNP, CBC, BMP #### [address] [place] [address] Ammunition Assembly Laborer: Renan Huerta MDUrea nitrogen [Mass/Vol]18 mg/dLNormal8-23Our [facility] Hospital - AndersonComment on above:Performed By: #### BNP, CBC, BMP #### [address] [place] [address] Ammunition Assembly Laborer: TUAN Martinezomprehensive Metabolic Panelon 23-53-7131Ibeirdp [Mass/Vol]3.4 g/dLLow3.5 - 5.2 g/dLBon [facility] Community HospitalAlbumin/Globulin [Mass ratio]1.6 {ratio}1.0 - 2.5Bon [facility] HealthALP [Catalytic activity/Vol]53 U/L35 - 104 U/LBon [facility] HealthALT [Catalytic activity/Vol]15 U/L10 - 35 U/LBon [facility] HospitalAnion gap [Moles/Vol]11 mmol/L9 - 16 mmol/LBon [facility] HealthAST [Catalytic activity/Vol]30 U/L10 - 35 U/LBon [facility] HealthBilirubin [Mass/Vol]0.4 mg/dL0.00 - 1.20 mg/dL Bon [facility] HospitalCalcium [Mass/Vol]8.0 mg/dLLow8.6 - 10.4 mg/dLBon [facility] HealthChloride [Moles/Vol]105 mmol/L98 - 107 mmol/LBon SecPo[facility] HealthCO2 [Moles/Vol]20 mmol/L20 - 31 mmol/LBon SecPointe [facility] Health Creatinine [Mass/Vol]1.2 mg/dLHigh0.50 - 0.90 mg/dLBon [facility] HealthEst, Glom Filt Lljb42Vcy- PINFBon [facility]oster Community HospitalComment on above: These results are not intended [...] therapy that affects renal tubular secretion. Glucose [Mass/Vol]82 mg/dL74 - 99 mg/dLBon [facility] Community HospitalInterpretation and review of laboratory resultsAbnormalLewisgale Hospital MontgomeryPotassium [Moles/Vol]4.6 mmol/L3.7 - 5.3 mmol/LBon [facility] HospitalProtein [Mass/Vol] 5.6 g/dLLow6.6 - 8.7 g/dLBon [facility] HospitalSodium [Moles/Vol]136 mmol/L136 - 145 mmol/LBon [facility] HospitalUrea nitrogen [Mass/Vol]18 mg/dL8 - 23 mg/dLBon [facility] HospitalUrea nitrogen/Creatinine [Mass ratio]15 mg/mg9 - 20 Bon [facility] HealthACTon 35-65-9871ATO925 secHigh 79-149[facility] Hospital LimaACT178 vutGtbp25-822RokatScci Hospital LimaActivated clotting timeon 80-89-3223UUU Coag (Bld)194 sHighBSpotsylvania Regional Medical Center HealthInterpretation and review of laboratory resultsAbnormalInova Alexandria Hospital HealthACT Coag (Bld)178 sHighBon [facility] HealthInterpretation and review of laboratory resultsAbnormalInova Alexandria Hospital HealthBUN, POCon 55-37-5929Nezr nitrogen [Mass/Vol]18 mg/dLNormal8-26Mercy Valleycare Medical CenterCHLORIDE (POC)on 24-42-8354Tyxacvil [Moles/Vol]104 mmol/L98 - 107 mmol/LBon [facility] Cardiac echo study Procedureon 59-63-3140Ierz surface area Derived from formula 1.35 m2Bon [facility] Community HospitalEF Rbflcjall33 %[facility] Hospitalft Ventricle: Normal left ventricular systolic function with [...] flow Doppler was performed. No contrast was given.[facility] CV CPACSLewisgale Hospital MontgomeryRadiology Study observation (narrative)Flory [facility] HospitalChloride (POC)on 95-00-4247Gncdqdbg [Moles/Vol]104 mmol/BVzpsxd20-827PwmumScci Hospital LimaCreatinine W/GFR Point of Careon 17-47-5936Gnbcrkvlow [Mass/Vol]1.2 mg/dLHigh0.51 - 1.19 mg/dLBon [facility] Community HospitaleGFR, UEI25Izc- PINFBon [facility]oster Community HospitalComment on above: These results are not intended [...] affects renal tubular secretion. Creatinine w/GFR, POCon 15-16-4428Zcrshhlvkx [Mass/Vol]1.2 mg/dLHigh0.51-1.19 Scci Hospital LimaGFR/1.73 sq M.predicted among non-blacks MDRD (S/P/Bld) [Vol rate/Area]44 mL/min/{1.73_m2}Low>60MerHollywood Community Hospital of HollywoodComment on above:Result Comment: These results are not intended for [...] or following therapy that affects renal tubular secretion.Glucose (POC)on 75-96-2064Mhjmror [Mass/Vol]80 mg/bYLkieyz20-989Ibgif Valleycare Medical CenterHemoglobin and hematocrit, bloodon 90-26-9698Thqchlkuvb (Bld) [Volume fraction]27 %Low36 - 46 % [facility] Hospital MontgomeryHemoglobin (Bld) [Mass/Vol]9.3 g/dLLow12.0 - 16.0 g/dL [facility] MontgomeryHgb/Hct, POCon 68-81-3973Xmzyhlorhw (Bld) [Volume fraction]27 %Lte08-21Qjhvb [facility]care Medical CenterHemoglobin (Bld) [Mass/Vol] 9.3 g/dLLow12.0-16.0Kindred Healthcarecy Valleycare Medical CenterNo Panel Informationon 80-97-1828Jytzamfnvwnsbz and review of laboratory resultsAbnormalBon [facility] HospitalBon [facility] Community HospitalPOCT Glucoseon 60-27-2235Pgzecdw [Mass/Vol] 80 mg/dL74 - 100 mg/dLBon [facility] urea (BUN)on 20-56-7543Mbfd nitrogen [Mass/Vol]18 mg/dL8 - 26 mg/dLBon [facility] HealthPOTASSIUM (POC)on 72-01-3689Hdxemqxnt [Moles/Vol]4.0 mmol/L3.5 - 4.5 mmol/LBon [facility] HealthPotassium (POC)on 75-46-9442Bvjadghju [Moles/Vol]4.0 mmol/LNormal3.5-4.5 [facility] HospitalODIUM (POC)on 59-82-3139Qnrxlj [Moles/Vol]138 mmol/L138 - 146 mmol/LBon [facility] HealthSodium (POC)on 54-74-2562Filyuq [Moles/Vol]138 mmol/HZckyyo454-546CocysScci Hospital LimaTYPE AND SCREENon 29-84-5587PNK and Rh group Nom (Bld)Blood group A Rh(D) positiveBon [facility] HospitalArm Band NumberBE [id number] [facility] Systemood Bank Sample Holsfoofaj45/13/2025,2359Bon [facility] HospitalBlood group antibodies identified NomNegativeBon [facility] HealthType + Screenon 62-50-9322Konx + ScreenSample Expiration 04/29/2025,2359 Arm Band Number BE [id number] ABO/Rh(D) A POSITIVE Antibody Screen NEGATIVENormalScci Hospital LimaComment on above: Performed By: #### TYS #### [facility] [address] [place], [place] [address] Ammunition Assembly Laborer: PARDEEP [place] METABOLIC PANELon 67-02-4774Xsckq gap [Moles/Vol]4 mmol/LLow5-15ProPermian Regional Medical CenterComment on above:Performed By: #### 90466-3 #### [facility] ([id number]) [address] [place] [address], [place] [address] #### CBCA, HA1C, CMP, 1968-7, 76342-8 #### [facility] ([id number]) [address] [place] [address], [address] [place], [place] [address]Rgkgvoe [Mass/Vol]8.0 mg/dLLow8.5-10.5POhioHealth Van Wert Hospital Comment on above:Performed By: #### 03863-3 #### [facility] ([id number]) [address] [place] [address] #### CBCA, HA1C, CMP, #### [facility] ([id number]) [address] [facility], [address] [place], [place] [address]Gxqxmexn [Moles/Vol]111 mmol/QKnjd15-580BtnFphmknPermian Regional Medical CenterComment on above:Performed By: #### 36102-8 #### [facility] ([id number]) [address] [place] [address] #### CBCA, HA1C, CMP, #### [facility] ([id number]) [address] [facility], [address] [place], [place] [address]XM2 [Moles/Vol]21 mmol/OAro19-74GkkRwvkarOhioHealth Van Wert Hospital Comment on above:Performed By: #### 89074-8 #### [facility] ([id number]) [address] [place] [address] #### CBCA, HA1C, CMP, #### [facility] ([id number]) [address] [facility] [place], [place] [address]Weizunxrcc [Mass/Vol]1.02 mg/dLHigh0.40-1.00[facility] Samaritan Medical CenterComment on above:Result Comment: METHOD TRACEABLE TO IDMS STANDARD Performed By: #### 70481-7 #### [facility] ([id number]) [address] [place] [address] #### CBCA, HA1C, CMP, #### [facility] ([id number]) [address], [address] [place], [place] [address]IKL/1.73 sq M.predicted among non-blacks MDRD (S/P/Bld) [Vol rate/Area]54 mL/min/{1.73_m2}Low>=60ProPermian Regional Medical CenterComment on above: Result Comment: eGFR not reported due to non-numeric value for Creatinine. Reported eGFR is based on the CKD-EPI 2020 equation that does not use a race coefficient.Performed By: #### 59970-0 #### [facility] ([id number]) [address] [place] [address] #### TREY MEEHAN, CMP, 54896-4 #### [facility] ([id number]) [address], [address] [place], [place] [address]Dazpcva [Mass/Vol]106 mg/fZXayo19-80RkoSczxxqUniversity Hospitals Samaritan Medical Center Comment on above:Performed By: #### 44891-1 #### [facility] ([id number]) [address] [place] [address] #### TREY MEEHAN CMP, #### [facility] ([id number]) [address], [address] [place], [place] [address]Zqpwdmpof [Moles/Vol]3.7 mmol/LNormal3.5-5.0ProPermian Regional Medical CenterComment on above:Performed By: #### 12716-1 #### [facility] ([id number]) [address] [place] [address] #### TREY MEEHAN, CMP, 15026-0 #### [facility] ([id number]) [address] [facility] [facility] [place], [place] [address]Liqkdf [Moles/Vol]136 mmol/PWrfcks434-919ZjzCjfmor Fremont HospitalComment on above:Performed By: #### 75966-3 #### [facility] ([id number]) [address] [place] [address], [place] [address] #### CBCA, HA1C, CMP, 1969-02, 39372-2 #### [facility] ([id number]) [address], [address] [place], [place] [address]Fzgx nitrogen [Mass/Vol]17 mg/dLNormal5-27ProMedica [facility], Centinela CampusComment on above:Performed By: #### 56733-2 #### [facility] ([id number]) [address] [place] [address], [place] [address] #### CBCA, HA1C, CMP, 54559-8 #### [facility] ([id number]) [address], [address] [place], [place] [address]LUN W Auto Differential panel (Bld)on 57-27-5673WLVLVTGD BASOPHIL0 10*3/uL0.0 - 0.2 10*3/uLNOMS HealthcareBasophils/100 WBC (Bld)0.8 % NOMS HealthcareDIFFERENTIAL TYPEAUTOMATED DIFFERENTIALNOMS HealthcareComment on above: PERFORMED AT [address] [place] [address] Eosinophils (Bld) [#/Vol]0 10*3/uL0.0 - 0.4 10*3/uLNOMS Healthcare Eosinophils/100 WBC (Bld)0.7 %NOMS HealthcareHematocrit (Bld) [Volume fraction] 23 %Low35 - 47 %NOMS HealthcareInterpretation and review of laboratory results AbnormalNOMS HealthcareLymphocytes (Bld) [#/Vol]0.6 10*3/uLLow1.0 - 3.5 10*3/uL NOMS HealthcareLymphocytes/100 WBC (Bld)11 %NOMS HealthcareMonocytes (Bld) [#/Vol]0.3 10*3/uL0.0 - 0.9 10*3/uLNOMS HealthcareMonocytes/100 WBC (Bld)5.6 % NOMS HealthcareNeutrophils (Bld) [#/Vol]4.3 10*3/uL1.5 - 6.6 10*3/uLNOMS HealthcareNeutrophils/100 WBC (Bld)81.9 %NOMS HealthcareRBC (Bld) [#/Vol]2.74 10*6/uLLowNOMS HealthcareWBC corrected for nucl RBC Auto (Bld) [#/Vol]5.3NOMS HealthcareNOMS HealthcareCBC WITH AUTO DIFFERENTIALon 02-92-4833Gqbczqwlbyk distribution width (RBC) [Ratio]18.2 %High11.5-15NOMS HealthcareComment on above:Performed By: #### 26477-2 #### [facility] ([id number]) [address] [place] [address] #### CBCA, HA1C, CMP, #### [facility] ([id number]) [address], [address] [place], [place] [address]Myltsjjqyy (Bld) [Mass/Vol]7.7 g/dLLow11.7-15.5NOMS Healthcare Comment on above:Performed By: #### 77298-5 #### [facility] ([id number]) [address] [place] [address] #### CBCA, HA1C, CMP, #### [facility] ([id number]) [address], [address] [place], [place] [address]OFP (RBC) [Entitic mass]28.2 wjEfxcup77-49NXYS HealthcareComment on above:Performed By: #### 49789-3 #### [facility] ([id number]) [address] [place] [address] #### CBCA, HA1C, CMP, #### [facility] ([id number]) [address], [address] [place], [place] [address]CADY (RBC) [Mass/Vol]33.6 g/hVMutgxw59-70MWJM HealthcareComment on above:Performed By: #### 46883-3 #### [facility] ([id number]) [address] [place] [address] #### CBCA, HA1C, CMP, #### [facility] ([id number]) [address] [facility] [place], [place] [address]WAE (RBC) [Entitic vol]84 pBKzszec45-044KOXB HealthcareComment on above:Performed By: #### 57301-2 #### [facility] ([id number]) [address] [place] [address] #### CBCA, HA1C, CMP, #### [facility] ([id number]) [address] [facility] [place], [place] [address]Jalbyabr mean volume (Bld) [Entitic vol]7.7 fLNormal7-12NOMS HealthcareComment on above:Performed By: #### 69589-7 #### [facility] ([id number]) [address] [place] [address] #### CBCA, HA1C, CMP, #### [facility] ([id number]) [address] [facility] [place], [place] [address]Gvykzgiww (Bld) [#/Vol]267 10*3/aHOftcbb578-027AWVA Healthcare Comment on above:Performed By: #### 87558-8 #### [facility] ([id number]) [address] [place] [address] #### CBCA, HA1C, CMP, #### [facility] ([id number]) [address] [facility] [place], [place] [address]XLCMNCLQY ABSOLUTE COUNT (10*3/UL) BY AUTOMATED COUNT0.0 10*3/uL Normal0.0-0.2ProMedica [facility], Centinela CampusComment on above:Performed By: #### 88198-3 #### [facility] ([id number]) [address] [place] [address] #### CBCA, HA1C, CMP, #### [facility] ([id number]) [address] [facility] [facility], [address] [place], [place] [address]RUMIQXCGM RELATIVE PERCENT BY AUTOMATED COUNT0.8 %Normal ProMPioneers Memorial HospitalComment on above:Performed By: #### 42880-6 #### [facility] ([id number]) [address] [place] [address] #### CBCA, HA1C, CMP, #### [facility] ([id number]) [address] [facility], [address] [place], [place] [address]FKUQLKTRUES DIFFERENTIAL TYPEAUTOMATED DIFFERENTIALNormal [facility] Hospit[facility] Samaritan Medical CenterComment on above:Performed By: #### 66181-9 #### [facility] ([id number]) [address] [place] [address] #### CBCA, HA1C, CMP, #### [facility] ([id number]) [address] [facility] [facility], [address] [place], [place] [address]Qufemwyhiaa (Bld) [#/Vol]0.0 10*3/uLNormal0.0-0.4Pro[facility], Centinela CampusComup health system on above:Performed By: #### 53099-9 #### [facility] ([id number]) [address] [place] [address] #### CBCA, HA1C, CMP, #### [facility] ([id number]) [address], [address] [place], [place] [address]VXYYIUUHWFC RELATIVE PERCENT BY AUTOMATED COUNT0.7 %Normal [facility] Samaritan Medical CenterComment on above:Performed By: #### 05845-0 #### [facility] ([id number]) [address] [place] [address] #### CBCA, HA1C, CMP, 95892-4 #### [facility] ([id number]) [address], [address] [place], [place] [address]Bilousjknc (Bld) [Volume fraction]23.0 %Uiu95-47OwdXahtmf [facility], Centinela CampusComment on above:Performed By: #### 11345-5 #### [facility] ([id number]) [address] [place] [address] #### CBCA, HA1C, CMP, 67986-6 #### [facility] ([id number]) [address], [address] [place], [place] [address]AURQCUSSFDN ABSOLUTE COUNT (10*3/UL) BY AUTOMATED COUNT0.6 10*3/uLLow1.0-3.5ProMedica [facility], Centinela CampusComment on above:Performed By: #### 76202-6 #### [facility] ([id number]) [address] [place] [address] #### CBCA, HA1C, CMP, 49080-6 #### [facility] ([id number]) [address], [address] [place], [place] [address]AFQLTVCLQEN RELATIVE PERCENT BY AUTOMATED COUNT11.0 %Normal [facility] Samaritan Medical CenterComment on above:Performed By: #### 54616-8 #### [facility] ([id number]) [address] [place] [address] #### CBCA, HA1C, CMP, 80270-8 #### [facility] ([id number]) [address] [place] [address], [address] [place], [place] [address]JOXFKAIQJ ABSOLUTE COUNT (10*3/UL) BY AUTOMATED COUNT0.3 10*3/uL Normal0.0-0.9ProPermian Regional Medical CenterComup health system on above:Performed By: #### 12250-1 #### [facility] ([id number]) [address] [place] [address] #### CBCA, HA1C, CMP, 37492-5 #### [facility] ([id number]) [address] [place] [address], [address] [place] [address]RSKEQPAKR RELATIVE PERCENT BY AUTOMATED COUNT5.6 %Normal [facility] Samaritan Medical CenterComment on above:Performed By: #### 45233-0 #### [facility] ([id number]) [address] [place] [address] #### CBCA, HA1C, CMP, 27211-4 #### [facility] ([id number]) [address] [place] [address], [address] [place] [address]ADZFARDTUHO ABSOLUTE COUNT BY AUTOMATED COUNT4.3 10*3/uLNormal 1.5-6.6ProPermian Regional Medical CenterComment on above:Performed By: #### 62689-1 #### [facility] ([id number]) [address] [place] [address] #### CBCA, HA1C, CMP, 07183-5 #### [facility] ([id number]) [address] [place] [address], [address] [place], [place] [address]YMONZZAJXSA RELATIVE PERCENT BY AUTOMATED COUNT81.9 %Normal [facility] Samaritan Medical CenterComment on above:Performed By: #### 25706-8 #### [facility] ([id number]) [address] [place] [address] #### CBCA, HA1C, CMP, 1968-02, 37749-2 #### [facility] ([id number]) [address] [facility] [facility], [address] [place] [address]KWC COUNT2.74 X10E12/LLow3.8-5.2[facility] Comment on above:Performed By: #### 30816-4 #### [facility] ([id number]) [address] [place] [id number] #### CBCA, HA1C, CMP, 1969-02, 09672-5 #### [facility] ([id number]) [address] [facility], [address] [place] [address] [id number] (Bld) [#/Vol]5.3 10*3/uLNormal4-11Pro[facility] Comment on above:Performed By: #### 86465-9 #### [facility] ([id number]) [address] [place] [id number] #### CBCA, HA1C, CMP, 1969-02, 50500-4 #### [facility] ([id number]) [address] [facility], [address] [place] [address] [id number] [id number] Coag (Bld) [Time]37.0 sHigh23.1-33.7[facility] AndersonComment on above:Result Comment: IV Heparin Therapy Range: 62.0-94.0Performed By: #### PTT #### [facility] [address] [place] [address] [employer]: Renan Huerta [facility] auto differentialon [id number] (Bld) [#/Vol]0.05 10*3/uLBon [facility]oster Community HospitalBasophils/100 WBC (Bld)1 %0 - 2 %[facility] HealthEosinophils (Bld) [#/Vol]0.11 10*3/uLBon Secours University Hospitals Samaritan Medical CenterEosinophils/100 WBC (Bld)2 %1 - 4 %[facility] MontgomeryErythrocyte distribution width (RBC) [Ratio]16.7 %High11.8 - 14.4 %[facility] Hematocrit (Bld) [Volume fraction]26.2 %Low36.3 - 47.1 %[facility] Hemoglobin (Bld) [Mass/Vol]8.3 g/dLLow11.9 - 15.1 g/dLBon [facility] Immature granulocytes (Bld) [#/Vol]0.03 10*3/uLBon [facility] HospitalImmature granulocytes/100 WBC (Bld)1 %Wpvl5OseLewisgale Hospital MontgomeryInterpretation and review of laboratory resultsAbnormalBon SecProMedica Flower HospitalLymphocytes/100 WBC (Bld)15 %Low24 - 43 %[facility] MontgomeryLymphocytes/100 WBC (Bld)0.87 %Low [facility] SystemsH (RBC) [Entitic mass]28.4 pg25.2 - 33.5 pgBon [facility] HospitalHC (RBC) [Mass/Vol]31.7 g/dL28.4 - 34.8 g/dLBon SecMagruder Memorial HospitalV (RBC) [Entitic vol]89.7 fL82.6 - 102.9 fLLewisgale Hospital Montgomery Monocytes/100 WBC (Bld)9 %3 - 12 %[facility] MontgomeryMonocytes/100 WBC (Bld)0.49 %[facility] MontgomeryNeutrophils/100 WBC (Bld)72 %High36 - 65 %[facility] MontgomeryNucleated RBC/100 WBC (Bld) [Ratio]0 %0.0 per 100 WBCBon [facility] HospitalPlatelet mean volume (Bld) [Entitic vol]10.3 fL8.1 - 13.5 fL Bon SecPo[facility] HealthPlatelets (Bld) [#/Vol]221 10*3/uLBon SecProMedica Flower HospitalRBC (Bld) [#/Vol]2.92 10*6/uLLow3.95 - 5.11 m/uLBon [facility] Segmented neutrophils/100 WBC (Bld)4.1 %Bon [facility] HospitalWBC other (Bld) [#/Vol]5.7Bon [facility] HospitalBon [facility] HospitalCBC with Diffon [id number]. Basophil0.05 k/uLNormal0.00-0.20[facility] HospitalComment on above:Performed By: #### CMPX, PT, CDP #### [address] [place] [address] [employer]: Jared Martinez.Imm.Granulocyte0.03 k/uLNormal0.00-0.30[facility] HospitalComment on above:Performed By: #### STEPHIE PT, CDP #### [address] [place] [address] [employer]orer: Jared Martinez.Neutrophil (Seg)4.10 k/uLNormal1.50-8.10[facility] HospitalComment on above:Performed By: #### STEPHIE PT, CDP #### [address] [place] [address] [employer]orer: Renan Huerta MDBasophils/100 WBC (Bld)1 %Normal0-2[facility] HospitalComment on above:Performed By: #### VIDYAX, PT, CDP #### [address] [place], [place] [address] [employer]orer: Renan Huerta MDEosinophils (Bld) [#/Vol]0.11 10*3/uLNormal 0.00-0.44[facility] HospitalComment on above:Performed By: #### VIDYAX, PT, CDP #### [address] [place], [facility] [employer]orer: Renan Sturtz, MDEosinophils/100 WBC (Bld)2 %Normal1-4[facility] - AndersonComment on above:Performed By: #### CMPX, PT, CDP #### [address] [place] [address] [employer]orer: Renan Huerta MDErythrocyte distribution width (RBC) [Ratio]16.7 % High11.8-14.4[facility] - AndersonComment on above:Performed By: #### CMPX, PT, CDP #### [address] [place] [address] [employer]orer: Renan Huerta MDHematocrit (Bld) [Volume fraction]26.2 %Low 36.3-47.1MFirelands Regional Medical Center South CampusComment on above:Performed By: #### CMPX, PT, CDP #### [address] [place], [place] [address] [employer] Laborer: Renan Huerta MDHemoglobin (Bld) [Mass/Vol]8.3 g/dLLow11.9-15.1 [facility] - AndersonComment on above:Performed By: #### CMPX, PT, CDP #### [address] [place] [address] [employer]orer: Renan Huerta MDImmature granulocytes/100 WBC (Bld)1 %Mhmf4UnyyeOur Lady Of Mercy Hospital - AndersonComment on above:Performed By: #### CMPX, PT, CDP #### [address] [place], [place] [address] [employer] Laborer: Mary Martinezmphocytes (Bld) [#/Vol]0.87 10*3/uLLow1.10-3.70 [facility] AndersonComup health system on above:Performed By: #### CMPX, PT, CDP #### [address] [place] [id number] [employer]orer: Renan Sturtz, MDLymphocytes/100 WBC (Bld)15 %Jpa84-81OmtxgOur Lady Of Mercy Hospital - AndersonComment on above:Performed By: #### CMPX, PT, CDP #### [address] [place], [place] [address]83 [employer]orer: SANDRA MartinezCH (RBC) [Entitic mass]28.4 irFyvykq22.2-33.5 [facility] HospitalComment on above:Performed By: #### CMPX, PT, CDP #### [address] [place] [address] [employer] Laborer: SANDRA MartinezCHC (RBC) [Mass/Vol]31.7 g/aRCafrdc06.4-34.8[facility] HospitalComment on above:Performed By: #### CMPX, PT, CDP #### [address] [place], [place] [id number] [employer]orer: SANDRA MartinezCV (RBC) [Entitic vol]89.7 eLBtpguw28.6-102.9 [facility] HospitalComment on above:Performed By: #### CMPX, PT, CDP #### [address] [place], [place] [address]83 [employer]orer: SANDRA Martniezonocytes (Bld) [#/Vol]0.49 10*3/uLNormal0.10-1.20 [facility] AndersonComup health system on above:Performed By: #### CMPX, PT, CDP #### [address] [place], [place] [id number] [employer]orer: SANDRA Martinezonocytes/100 WBC (Bld)9 %Normal3-12[facility] - AndersonComment on above:Performed By: #### CMPX, PT, CDP #### [address] [place], [place] [phone] [employer]orer: Naveed Martinez (Seg)72 %Atfp94-13XbgwvOur Lady Of Mercy Hospital - Anderson Comment on above:Performed By: #### CMPX, PT, CDP #### [address] [place], [place] [address]83 [employer] Laborer: WILLARD Martinez Automated0.0 per 100 WBCNormal0.0[facility] - AndersonComment on above:Performed By: #### CMPX, PT, CDP #### [address] [place] [address] [employer] Laborer: Sal Martinez mean volume (Bld) [Entitic vol]10.3 fL Normal8.1-13.5[facility] - AndersonComment on above:Performed By: #### CMPX, PT, CDP #### [address] [place] [address] [employer]orer: Maggie Martinez (Bld) [#/Vol]221 10*3/zMIijdlj500-289 [facility] - AndersonComment on above:Performed By: #### CMPX, PT, CDP #### [address] [place], [place] [address] [employer]orer: ROLY Martinez (Bld) [#/Vol]2.92 10*6/uLLow3.95-5.11[facility] - AndersonComment on above:Performed By: #### CMPX, PT, CDP #### [address] [place] [address] Am[employer] Laborer: MANDO Martinez (Bld) [#/Vol]5.7 10*3/uLNormal3.5-11.3MChildren's Hospital for Rehabilitation HospitalComment on above:Performed By: #### CMPX, PT, CDP #### [address] [place] [address] [employer] Laborer: TUAN Martinezomp Metabolic Pr/rfx MGon [id number] [Mass/Vol]2.9 g/dLLow3.5-5.2[facility] HospitalComment on above:Performed By: #### CMPX, PT, CDP #### [address] [place], [place] [address]83 [employer]orer: Renan Huerta MDAlbumin/Glob Ratio1.4Adctof3.0-2.5[facility] - AndersonComment on above:Performed By: #### CMPX, PT, CDP #### [address] [place] [address] [employer] Laborer: Greg Martinezkaline Phos52 U/GIvleen78-141CjqjbOur Lady Of Mercy Hospital - AndersonComment on above:Performed By: #### CMPX, PT, CDP #### [address] [place] [address] [employer] Laborer: Renan Huerta MDALT [Catalytic activity/Vol]14 U/MCarwmo55-81WdzhwOur Lady Of Mercy Hospital - AndersonComment on above:Performed By: #### CMPX, PT, CDP #### [address] [place] [address] [employer]orer: Germain Martinez gap [Moles/Vol]10 mmol/LNormal9-16[facility] - AndersonComment on above:Performed By: #### CMPX, PT, CDP #### [address] [place] [address] [employer] Laborer: Renan Huerta MDAST [Catalytic activity/Vol]37 U/VJgyk65-72TymieOur Lady Of Mercy Hospital - AndersonComup health system on above:Result Comment: Specimen hemolysis has exceeded the interference as defined by Sharath. Value may be falsely increased. Suggest recollection if clinically indicated.Performed By: #### CMPX, PT, CDP #### [address] [place], [place] [phone] [employer]orer: Renan Huerta MDBilirubin [Mass/Vol]0.4 mg/dLNormal0.00-1.20[facility] - AndersonComment on above:Performed By: #### CMPX, PT, CDP #### [address] [place], [place] [address]83 [employer]orer: Renan Huerta MDBUN/CRE Ghtfq50Paci6-89RluiqOur Lady Of Mercy Hospital - Anderson Comment on above:Performed By: #### CMPX, PT, CDP #### [address] [place], [place] [address]83 [employer]orer: TUAN Martinezalcium [Mass/Vol]7.6 mg/dLLow8.6-10.4[facility] - AndersonComment on above:Performed By: #### CMPX, PT, CDP #### [address] [place] [address] [employer] Laborer: TUAN Martinezhloride [Moles/Vol]111 mmol/TBevx05-148HbjlkOur Lady Of Mercy Hospital - AndersonComment on above:Performed By: #### CMPX, PT, CDP #### [address] [place], [place] [address]483 [employer]orer: Renan Huerta MDCO2 [Moles/Vol]17 mmol/ZAny34-51Umjda [facility]iffin HospitalComment on above:Performed By: #### CMPX, PT, CDP #### [address] [place], [place] [address]83 [employer]orer: TUAN Martinezreatinine [Mass/Vol]1.1 mg/dLHigh0.50-0.90[facility] - AndersonComment on above:Performed By: #### CMPX, PT, CDP #### [address] [place], [place] [address]83 [employer]orer: Renan Sturtz, MDGFR/1.73 sq M.predicted among non-blacks MDRD (S/P/Bld) [Vol rate/Area]48 mL/min/{1.73_m2}Low>60[facility] - AndersonComment on above:Result Comment: These results are not intended for [...] or following therapy that affects renal tubular secretion.Performed By: #### VIDYAX PT, CDP #### [address] [place] [address] [employer] Laborer: Renan Huerta MDGlucose [Mass/Vol]82 mg/tIMgmams16-45QxcagFirelands Regional Medical Center South CampusComment on above:Performed By: #### STEPHIE PT, CDP #### [address] [place] [address] [employer] Laborer: KAREEN Martinezotassium [Moles/Vol]4.8 mmol/LNormal3.7-5.3MFirelands Regional Medical Center South CampusComment on above:Result Comment: Specimen hemolysis has exceeded the interference as defined by Sharath. Value may be falsely increased. Suggest recollection if clinically indicated.Performed By: #### CMPX, PT, CDP #### [address] [place] [address] [employer] Laborer: KAREEN Martinezrotein [Mass/Vol]5.0 g/dLLow6.6-8.7[facility] - AndersonComment on above:Performed By: #### VIDYAX, PT, CDP #### [address] [place] [address] [employer] Laborer: Renan Huerta MDSodium [Moles/Vol]138 mmol/WDpvtzt758-898Onzyr [facility]iffin HospitalComment on above:Performed By: #### CMPX, PT, CDP #### [facility] [address] [place] [address] Am[employer] Laborer: Renan Huerta MDUrea nitrogen [Mass/Vol]26 mg/dLHigh8-23[facility] - AndersonComment on above:Performed By: #### CMPX, PT, CDP #### [facility] [address] [place] [address] [employer] Laborer: Renan Huerta [facility] TULSAomprehensive Metabolic Panel w/ Reflex to MGon [id number] [Mass/Vol]2.9 g/dLLow3.5 - 5.2 g/dLBon [facility] Albumin/Globulin [Mass ratio]1.4 {ratio}1.0 - 2.5Bon [facility] HealthALP [Catalytic activity/Vol]52 U/L35 - 104 U/LBon SecPointe Coupee General Hospital HealthALT [Catalytic activity/Vol]14 U/L10 - 35 U/LBon [facility] HospitalAnion gap [Moles/Vol]10 mmol/L9 - 16 mmol/LBon [facility] HealthAST [Catalytic activity/Vol]37 U/L High10 - 35 U/LBon [facility] HospitalComment on above:Specimen hemolysis has exceeded the interference as defined by Sharath. Value may be falsely increased. Suggest recollection if clinically indicated. Bilirubin [Mass/Vol]0.4 mg/dL0.00 - 1.20 mg/dLBon [facility] HealthCalcium [Mass/Vol]7.6 mg/dLLow8.6 - 10.4 mg/dLBon SecPointe Coupee General Hospital HealthChloride [Moles/Vol]111 mmol/LHigh98 - 107 mmol/LBon [facility] HealthCO2 [Moles/Vol] 17 mmol/LLow20 - 31 mmol/LBon SecProMedica Flower HospitalCreatinine [Mass/Vol]1.1 mg/dL High0.50 - 0.90 mg/dLBon [facility] Instituteours [facility] HealthEst, Glom Filt Fyis29Gyv- PINFBon [facility] HospitalComup health system on above: These results are not intended [...] therapy that affects renal tubular secretion. Glucose [Mass/Vol]82 mg/dL74 - 99 mg/dLBon [facility] HospitalInterpretation and review of laboratory resultsAbnormCJW Medical CenterPotassium [Moles/Vol]4.8 mmol/L3.7 - 5.3 mmol/LBon [facility] HospitalComment on above: Specimen hemolysis has exceeded the interference as defined by Sharath. Value may be falsely increased. Suggest recollection if clinically indicated. Protein [Mass/Vol]5 g/dLLow6.6 - 8.7 g/dLBon [facility] HospitalSodium [Moles/Vol]138 mmol/L136 - 145 mmol/LBon [facility] HospitalUrea nitrogen [Mass/Vol]26 mg/dLHigh8 - 23 mg/dLBon [facility] HospitalUrea nitrogen/Creatinine [Mass ratio]24 mg/mgHigh9 - 20Bon [facility] HospitalCult,Urineon [id number],UrineSpecimen Description .CLEAN CATCH URINE Special Requests Site: Urine Culture KLEBSIELLA PNEUMONIAE >100,000 CFU/ML Report Status FINAL 03/24/2025 SUSCEPTIBILITY Organism KLEBSIELLA PNEUMONIAE Method ALICIA Ampicillin >=32 RESISTANT Cefazolin (Non-Urine) 2 SUSCEPTIBLE Cefazolin (Urine) 2 SUSCEPTIBLE Urine specific interpretations are for uncomplicated UTIs only. Ceftriaxone <=0.25 SUSCEPTIBLE Gentamicin <=1 SUSCEPTIBLE Levofloxacin <=0.12 SUSCEPTIBLE Nitrofurantoin 128 RESISTANT Piperacillin/Tazobactam <=4 SUSCEPTIBLE Trimethoprim/Sulfa <=20 SUSCEPTIBLESusceptibleMercy Hartford HospitalComment on above:Performed By: #### BNP, CBC, BMP #### [facility] [address] [place] [address] [place] [address] [employer] Laborer: Renan Huerta, [facility], Urineon [id number] and review of laboratory resultsAbRiverside Doctors' Hospital WilliamsburgMicroorganism identified Cx Nom (Unsp spec)KLEBSIELLA PNEUMONIAE >100,000 CFU/MLAbnoHealthSouth Medical CenterService comment (Unsp spec) [Interp]Site: UrineLewisgale Hospital MontgomerySpecimen Description.CLEAN CATCH URINESentara Northern Virginia Medical CenterMHPT CULT,URINEon [id number] and review of laboratory resultsAbnormalNOTX HealthcarePT CULT,URINESpecimen Description .CLEAN CATCH URINENOTX HealthcarePT CULT,URINESpecial Requests Site: UrineNOMS HealthcareMHPT CULT,URINECulture KLEBSIELLA PNEUMONIAE >100,000 CFU/MLAbnormal NOMS HealthcarePT CULT,URINEReport Status FINAL 03/24/2025NOMS HealthcareMHPT CULT,URINE SUSCEPTIBILITY NOMS HealthcarePT CULT,URINEOrganism KLEBSIELLA PNEUMONIAENOMS HealthcarePT CULT,URINEMethod MICNOMS HealthcarePT CULT,URINEAmpicillin >=32 RESISTANT ResistantNOMS HealthcarePT CULT,URINECefazolin (Non-Urine) 2 SUSCEPTIBLE SusceptibleNOTX HealthcarePT CULT,URINECefazolin (Urine) 2 SUSCEPTIBLE SusceptibleNOPhelps HealthPT CULT,URINEUrine specific interpretations are for uncomplicated UTIs only. SusceptibleNOMS HealthcarePT CULT,URINECeftriaxone <=0.25 SUSCEPTIBLE SusceptibleNOMS [facility] HospitalPT CULT,URINEGentamicin <=1 SUSCEPTIBLESusceptible NOMS HealthcarePT CULT,URINELevofloxacin <=0.12 SUSCEPTIBLESusceptibleNOPhelps HealthPT CULT,URINENitrofurantoin 128 RESISTANTResistantNOSaint John's Saint Francis HospitalPT CULT,URINEPiperacillin/Tazobactam <=4 SUSCEPTIBLESusceptibleSaint Francis Medical CenterPT CULT,URINETrimethoprim/Sulfa <=20 SUSCEPTIBLESusceptibleWestern [facility] Original Ordering Provider: ANALY AUGUSTINE [facility] [id number] Coag (PPP) [Relative time]1.6 {INR}[facility] Comment on above: Therapeutic Range: Moderate Anticoagulant Intensity: INR = 2.0-3.0 High Anticoagulant Intensity: INR = 2.5-3.5 Result Comment: Therapeutic Range: Moderate Anticoagulant Intensity: INR = 2.0-3.0 High Anticoagulant Intensity: INR = 2.5-3.5Performed By: #### CMPX, PT, CDP #### [facility] [address] [place] [address] [employer] Laborer: LIZETH Martinez Coag (PPP) [Time]20.0 sHigh12.0-15.0Bon [facility] on above:Performed By: #### CMPX, PT, CDP #### [facility] [address] [place] [address] [employer] Laborer: KAREEN MartinezTTon [id number] Coag (Bld) [Time]37 sHighBon [facility] on above: IV Heparin Therapy Range: 62.0-94.0 Interpretation and review of laboratory resultsAbnormWinchester Medical CenterProtime-INRon [id number] and review of laboratory resultsAbnormalSentara Northern Virginia Medical CenterCBC auto differentialon [id number] (Bld) [#/Vol]0.06 10*3/uLBon [facility] HospitalBasophils/100 WBC (Bld)1 %0 - 2 %[facility] Hospital MontgomeryEosinophils (Bld) [#/Vol]0.09 10*3/uLBon [facility] HospitalEosinophils/100 WBC (Bld)2 %1 - 4 %[facility] MontgomeryErythrocyte distribution width (RBC) [Ratio]16.5 % High11.8 - 14.4 %[facility] MontgomeryHematocrit (Bld) [Volume fraction]23.5 %Low36.3 - 47.1 %[facility] MontgomeryHemoglobin (Bld) [Mass/Vol]7.2 g/dLLow 11.9 - 15.1 g/dLBon [facility] HospitalImmature granulocytes (Bld) [#/Vol]0.03 10*3/uLBon [facility] Hospitalmature granulocytes/100 WBC (Bld)1 %Rznl6Dtl [facility] HospitalInterpretation and review of laboratory resultsAbnormalBon [facility] HospitalLymphocytes/100 WBC (Bld)20 %Low24 - 43 %[facility] MontgomeryLymphocytes/100 WBC (Bld)1.11 %Community Health SystemsH (RBC) [Entitic mass]27.5 pg25.2 - 33.5 pgBon [facility] HospitalHC (RBC) [Mass/Vol]30.6 g/dL 28.4 - 34.8 g/dLBon [facility] Bl[facility] Valley HospitalV (RBC) [Entitic vol]89.7 fL82.6 - 102.9 fLLewisgale Hospital MontgomeryMonocytes/100 WBC (Bld)8 %3 - 12 %[facility] MontgomeryMonocytes/100 WBC (Bld)0.43 %[facility] MontgomeryNeutrophils/100 WBC (Bld)68 %High36 - 65 %[facility] MontgomeryNucleated RBC/100 WBC (Bld) [Ratio]0 %0.0 per 100 WBCLewisgale Hospital MontgomeryPlatelet mean volume (Bld) [Entitic vol]10.2 fL8.1 - 13.5 fLLewisgale Hospital MontgomeryPlatelets (Bld) [#/Vol] 197 10*3/uLBon [facility] HospitalRBC (Bld) [#/Vol]2.62 10*6/uLLow3.95 - 5.11 m/uLLewisgale Hospital MontgomerySegmented neutrophils/100 WBC (Bld)3.93 %[facility] MontgomeryWBC other (Bld) [#/Vol]5.7Bon [facility] HospitalCBC with Diffon [id number]. Basophil0.06 k/uLNormal0.00-0.20[facility] - AndersonComment on above:Performed By: #### CDP, CMPX, PT #### [facility] [address] [place] [address] [employer] Laborer: Jared Martinez.Imm.Granulocyte0.03 k/uLNormal0.00-0.30[facility] HospitalComment on above:Performed By: #### CDP, CMPX, PT #### [address] [place], [place] [address] [employer] Laborer: Jared Martinez.Neutrophil (Seg)3.93 k/uLNormal1.50-8.10[facility] HospitalComment on above:Performed By: #### RYAN, CMPX, PT #### [address] [place], [place] [address] [employer] Laborer: Renan Huerta MDBasophils/100 WBC (Bld)1 %Normal0-2[facility] HospitalComment on above:Performed By: #### RYAN, CMPX, PT #### [address] [place], [place] [address] Am[employer] Laborer: Renan Huerta MDEosinophils (Bld) [#/Vol]0.09 10*3/uLNormal 0.00-0.44[facility] HospitalComment on above:Performed By: #### RYAN CMPX, PT #### [address] [place], [place] [address] Am[employer] Laborer: Renan Huerta MDEosinophils/100 WBC (Bld)2 %Normal1-4[facility] - AndersonComment on above:Performed By: #### RYAN CMPX, PT #### [address] [place], [place] [address] [employer] Laborer: Renan Huerta MDErythrocyte distribution width (RBC) [Ratio]16.5 % High11.8-14.4[facility] HospitalComment on above:Performed By: #### RYAN, CMPX, PT #### [address] [place], [facility] Am[employer] Laborer: Renan Huerta MDHematocrit (Bld) [Volume fraction]23.5 %Low 36.3-47.1MercUniversity Hospitals St. John Medical Center HospitalComment on above:Performed By: #### CDP, CMPX, PT #### [address] [place] [address] [employer] Laborer: Renan Huerta MDHemoglobin (Bld) [Mass/Vol]7.2 g/dLLow11.9-15.1 [facility] HospitalComment on above:Performed By: #### CDP, CMPX, PT #### [address] [place] [address] [employer] Laborer: Renan Huerta MDImmature granulocytes/100 WBC (Bld)1 %Iumm4LftwhOur Lady Of Mercy Hospital - AndersonComment on above:Performed By: #### RYAN, CMPX, PT #### [address] [place], [place] [id number] [employer] Laborer: Renan Huerta MDLymphocytes (Bld) [#/Vol]1.11 10*3/uLNormal 1.10-3.70[facility] HospitalComment on above:Performed By: #### RYAN, CMPX, PT #### [address] [place], [place] [address] [employer] Laborer: Mary Martinezmphocytes/100 WBC (Bld)20 %Ubx61-12DkxgoOur Lady Of Mercy Hospital - AndersonComment on above:Performed By: #### RYAN, CMPX, PT #### [address] [place], [place] [address] Am[employer] Laborer: SANDRA MartinezCH (RBC) [Entitic mass]27.5 rwBaxsps60.2-33.5 [facility] HospitalComment on above:Performed By: #### CDP, CMPX, PT #### [address] [place], [place] [address]483 [employer] Laborer: SANDRA MartinezCHC (RBC) [Mass/Vol]30.6 g/hVUwavqf47.4-34.8[facility] - AndersonComment on above:Performed By: #### CDP, CMPX, PT #### [address] [place] [address] [employer] Laborer: SANDRA MartinezCV (RBC) [Entitic vol]89.7 fIWfxkcn28.6-102.9 [facility] - AndersonComment on above:Performed By: #### CDP, CMPX, PT #### [address] [place] [address] Am[employer] Laborer: SANDRA Martinezonocytes (Bld) [#/Vol]0.43 10*3/uLNormal0.10-1.20 [facility] - AndersonComment on above:Performed By: #### RYAN, CMPX, PT #### [address] [place] [address] [employer] Laborer: SANDRA Martinezonocytes/100 WBC (Bld)8 %Normal3-12[facility] - AndersonComment on above:Performed By: #### RYAN, CMPX, PT #### [address] [place] [address] Am[employer] Laborer: Shirlene Martinezutrophil (Seg)68 %Hyqw80-91WvzekOur Lady Of Mercy Hospital - Anderson Comment on above:Performed By: #### RYAN, CMPX, PT #### [address] [place], [place] [address]83 [employer] Laborer: Renan Huerta MDNRBC Automated0.0 per 100 WBCNormal0.0[facility] - AndersonComment on above:Performed By: #### RYAN, CMPX, PT #### [address] [place] [address] Ammunition Assembly Laborer: KAREEN Martinezlatelet mean volume (Bld) [Entitic vol]10.2 fL Normal8.1-13.5[facility] - AndersonComment on above:Performed By: #### CDP, CMPX, PT #### [address] [place] [address] Am[employer] Assembly Laborer: Maggie Martinez ([facility]) [#/Vol]197 10*3/qTQljlvy408-357 [facility] HospitalComment on above:Performed By: #### CDP, CMPX, PT #### [address] [place], [facility] Am[employer] Laborer: ROLY Martinez ([facility]) [#/Vol]2.62 10*6/uLLow3.95-5.11[facility] HospitalComment on above:Performed By: #### CDP, CMPX, PT #### [address] [place], [place] [address] Am[employer] Assembly Laborer: MANDO Martinez ([facility]) [#/Vol]5.7 10*3/uLNormal3.5-11.3MChildren's Hospital for Rehabilitation HospitalComment on above:Performed By: #### CDP, CMPX, PT #### [address] [place], [place] [address] [employer] Laborer: TUAN Martinezomp Metabolic Pr/rfx MGon [id number] [Mass/Vol]2.9 g/dLLow3.5-5.2MChildren's Hospital for Rehabilitation HospitalComment on above:Performed By: #### BNP, CBC, BMP #### [address] [place] [address] Ammunition Assembly Laborer: Renan Huerta MDAlbumin/Glob Ratio1.5Tghyoq5.0-2.5Our [facility] Hospital - AndersonComment on above:Performed By: #### BNP, CBC, BMP #### [address] [place], [place] [id number] Ammunition Assembly Laborer: Abdi Martinez Phos48 U/IIqiinc64-775RmsflOur Lady Of Mercy Hospital - AndersonComment on above:Performed By: #### BNP, CBC, BMP #### [address] [place], [place] [id number] Ammunition Assembly Laborer: Renan Huerta MDALT [Catalytic activity/Vol]11 U/PBtvvbo04-33TslecOur Lady Of Mercy Hospital - AndersonComment on above:Performed By: #### BNP, CBC, BMP #### [address] [place], [place] [id number] Ammunition Assembly Laborer: Renan Huerta MDAnion gap [Moles/Vol]8 mmol/LLow9-16Our [facility] - AndersonComment on above:Performed By: #### BNP, CBC, BMP #### [address] [place], [place] 360[address]83 Ammunition Assembly Laborer: Renan Huerta MDAST [Catalytic activity/Vol]26 U/XDewqxv07-17XvqfrOur Lady Of Mercy Hospital - AndersonComment on above:Performed By: #### BNP, CBC, BMP #### [address] [place], [place] [address]83 Ammunition Assembly Laborer: Renan Huerta MDBilirubin [Mass/Vol]0.3 mg/dLNormal0.00-1.20[facility] - AndersonComment on above:Performed By: #### BNP, CBC, BMP #### [address] [place], [place] [address]83 Ammunition Assembly Laborer: Renan Huerta MDBUN/CRE Nwlaf61Vttujp4-14Xvwse [facility] Comment on above:Performed By: #### BNP, CBC, BMP #### [address] [place] [address] Ammunition Assembly Laborer: Renan Huerta MDCalcium [Mass/Vol]7.4 mg/dLLow8.6-10.4[facility] HospitalComment on above:Performed By: #### BNP, CBC, BMP #### [address] [place], [place] [id number] Ammunition Assembly Laborer: TUAN Martinezhloride [Moles/Vol]111 mmol/LQzke74-924ZeftoOur Lady Of Mercy Hospital - AndersonComment on above:Performed By: #### BNP, CBC, BMP #### [address] [place] [address] Ammunition Assembly Laborer: TUAN MartinezO2 [Moles/Vol]18 mmol/QEoo72-02ObvvoOur Lady Of Mercy Hospital - AndersonComment on above:Performed By: #### PILAR, CBC, BMP #### [address] [place] [address] Ammunition Assembly Laborer: TUAN Martinezreatinine [Mass/Vol]1.5 mg/dLHigh0.50-0.90Our [facility] - AndersonComment on above:Performed By: #### PILAR CBC, BMP #### [address] [place] [address] Ammunition Assembly Laborer: Renan Huerta MDGFR/1.73 sq M.predicted among non-blacks MDRD (S/P/Bld) [Vol rate/Area]35 mL/min/{1.73_m2}Low>60Mer[facility] Hartford HospitalComment on above:Result Comment: These results are not intended for [...] or following therapy that affects renal tubular secretion.Performed By: #### BNP, CBC, BMP #### [address] [place] [address] Ammunition Assembly Laborer: Renan Huerta MDGlucose [Mass/Vol]83 mg/kYJvdkth83-53Bdlhp Hartford HospitalComment on above:Performed By: #### BNP, CBC, BMP #### [address] [place], [place] [id number] Ammunition Assembly Laborer: Renan Huerta MDPotassium [Moles/Vol]3.7 mmol/LNormal3.7-5.3MercUniversity Hospitals St. John Medical Center HospitalComment on above:Performed By: #### BNP, CBC, BMP #### [address] [place], [place] 446[address]83 Ammunition Assembly Laborer: Renan Huerta MDProtein [Mass/Vol]4.7 g/dLLow6.6-8.7[facility] - AndersonComment on above:Performed By: #### BNP, CBC, BMP #### [address] [place], [place] 6383683 Ammunition Assembly Laborer: Renan Huerta MDSodium [Moles/Vol]137 mmol/SJsxwda997-719ThylmOur Lady Of Mercy Hospital - AndersonComment on above:Performed By: #### BNP, CBC, BMP #### [address] [place], [place] 8930883 Ammunition Assembly Laborer: Renan Huerta MDUrea nitrogen [Mass/Vol]30 mg/dLHigh8-23Our [facility] - AndersonComment on above:Performed By: #### BNP, CBC, BMP #### [address] [place] [address] Ammunition Assembly Laborer: TUAN Martinezomprehensive Metabolic Panel w/ Reflex to MGon [id number] [Mass/Vol]2.9 g/dLLow3.5 - 5.2 g/dLBon [facility] Albumin/Globulin [Mass ratio]1.6 {ratio}1.0 - 2.5Bon [facility] HospitalALP [Catalytic activity/Vol]48 U/L35 - 104 U/LBon [facility] HospitalALT [Catalytic activity/Vol]11 U/L10 - 35 U/LBon [facility] HospitalAnion gap [Moles/Vol]8 mmol/LLow9 - 16 mmol/LBon [facility] HospitalAST [Catalytic activity/Vol]26 U/L 10 - 35 U/LBon [facility] HospitalBilirubin [Mass/Vol]0.3 mg/dL0.00 - 1.20 mg/dLBon [facility] HospitalCalcium [Mass/Vol]7.4 mg/dLLow8.6 - 10.4 mg/dLBon [facility] HospitalChloride [Moles/Vol]111 mmol/LHigh98 - 107 mmol/LBon [facility] HospitalCO2 [Moles/Vol]18 mmol/LLow20 - 31 mmol/LBon [facility] Creatinine [Mass/Vol]1.5 mg/dLHigh0.50 - 0.90 mg/dLBon [facility] HospitalEst, Glom Filt Bjyt35Wbo- PINFBon [facility]oster Community HospitalComment on above: These results are not intended [...] therapy that affects renal tubular secretion. Glucose [Mass/Vol]83 mg/dL74 - 99 mg/dLBon [facility] HospitalInterpretation and review of laboratory resultsAbnormalLewisgale Hospital MontgomeryPotassium [Moles/Vol]3.7 mmol/L3.7 - 5.3 mmol/LBon [facility] HospitalProtein [Mass/Vol] 4.7 g/dLLow6.6 - 8.7 g/dLBon [facility] HospitalSodium [Moles/Vol]137 mmol/L136 - 145 mmol/LBon [facility] HospitalUrea nitrogen [Mass/Vol]30 mg/dLHigh8 - 23 mg/dLBon [facility] Community HospitalUrea nitrogen/Creatinine [Mass ratio]20 mg/mg9 - 20 Bon [facility] [id number] Coag (PPP) [Relative time]1.7 {INR}NormalMercy Hartford HospitalComment on above:Result Comment: Therapeutic Range: Moderate Anticoagulant Intensity: INR = 2.0-3.0 High Anticoagulant Intensity: INR = 2.5-3.5Performed By: #### CDP, CMPX, PT #### [address] [place] [address] Ammunition Assembly Laborer: KAREEN MartinezT Coag (PPP) [Time]20.6 sHigh12.0-15.0[facility] Hospital - AndersonComment on above:Performed By: #### CDP, CMPX, PT #### [address] [place] [address] Ammunition Assembly Laborer: Jo Martinezime-INRon [id number] Coag (PPP) [Relative time]1.7 {INR}[facility] Hospital MontgomeryComup health system on above: Therapeutic Range: Moderate Anticoagulant Intensity: INR = 2.0-3.0 High Anticoagulant Intensity: INR = 2.5-3.5 Interpretation and review of laboratory resultsAbRiverside [facility] PT Coag (PPP) [Time]20.6 sHighBon [facility] Arterial Blood Gaseson [id number] TestYESSuburban Community Hospital & Brentwood HospitalComment on above:Performed By: #### CMPX, PT, CDP #### [address] [place] [address] Ammunition Assembly Laborer: Enid Martinez Temp.37.0NormUniversity Hospitals Ahuja Medical CenterComment on above:Performed By: #### CMPX, PT, CDP #### [address] [place] [address] Ammunition Assembly Laborer: VALERIO MartinezJJSPH185BtgybcPqgipDetwiler Memorial HospitalComment on above: Performed By: #### CMPX, PT, CDP #### [address] [place] [address] Ammunition Assembly Laborer: Renan Huerta MDHCO3 (Bld) [Moles/Vol]16.6 mmol/EQxr07-16RujrlOur Lady Of Mercy Hospital - AndersonComment on above:Performed By: #### CMPX, PT, CDP #### [address] [place], [place] 1242883 Ammunition Assembly Laborer: Renan Huerta MDNegative Base Excess6.2 mmol/LHigh0.0-2.0[facility] - AndersonComment on above:Performed By: #### CMPX, PT, CDP #### [address] [place], [place] 6133583 Ammunition Assembly Laborer: Renan Huerta MDO2 Device/Flow/%ROOM AIRNormalOur Lady Of Mercy Hospital - AndersonComment on above:Performed By: #### CMPX, PT, CDP #### [address] [place], [place] 4209483 Ammunition Assembly Laborer: Renan Huerta MDOxygen (Bld) [Partial pressure]105.2 mm[Hg]High 80.0-100.0Our [facility] Hospital - AndersonComment on above:Performed By: #### CMPX, PT, CDP #### [address] [place] [address] Ammunition Assembly Laborer: Renan Huerta MDOxygen saturation in Blood98.0 %Dvhbzn34-10CgsolOur Lady Of Mercy Hospital - AndersonComment on above:Performed By: #### CMPX, PT, CDP #### [address] [place] [address] Ammunition Assembly Laborer: Kareen MartinezCO226.6 alElWfx86-07AjcssOur Lady Of Mercy Hospital - AndersonComment on above:Performed By: #### CMPX, PT, CDP #### [address] [place], [place] 5723183 Ammunition Assembly Laborer: Kareen MartinezCO2 Adj'd for Temp26.6Low35.0-45.0[facility] Hospital - AndersonComment on above:Performed By: #### CMPX, PT, CDP #### [facility] [address] [place] [address] [place] [address] Ammunition Assembly Laborer: Kareen Martinez (Bld)7.412 [pH]Normal7.35-7.45Our [facility] Hospital - AndersonComment on above:Performed By: #### CMPX, PT, CDP #### [address] [place] [address] Ammunition Assembly Laborer: Renan Huerta [facility] Adjst'd for Temp.7.975Cpvsws4.350-7.450Our [facility] Hospital - AndersonComment on above:Performed By: #### STEPHIE, PT, CDP #### [address] [place], [place] 0320483 Ammunition Assembly Laborer: Kareen Martinez Adjst'd for Sypb325.2 pyKgEdny18.0-100.0[facility] - AndersonComment on above:Performed By: #### STEPHIE, PT, CDP #### [facility] [address] [place] [address] [place] [address] Ammunition Assembly Laborer: BURKE MartinezWashington DC [facility] Radial ArteryNormalOur Lady Of Mercy Hospital - AndersonComment on above:Performed By: #### STEPHIE, PT, CDP #### [facility] [address] [place] [address] Dr[address] [place], [place] [phone] Ammunition Assembly Laborer: Grupo Martinez Gas, Arterialon [id number] patency Wrist artery --pre arterial punctureYESBon [facility] CampusLe Radial ArteryBon [facility] Community HospitalHCO3 (Bld) [Moles/Vol]16.6 mmol/LLow22 - 26 mmol/LBon [facility] HospitalInterpretation and review of laboratory results AbnormalBon [facility] HospitalNegative Base Excess, Art6.2 mmol/LHigh0.0 - 2.0 mmol/LBon [facility] HospitalOxygen gas flow Oxygen delivery systemROOM AIRBon [facility] HospitalOxygen saturation in Blood98 %95 - 98 %Bon [facility] HospitalOxygen/Inspired gas Respiratory system --on bvijuephho09Rpg [facility] HospitalpCO2, Art, Temp Adj26.6Low35.0 - 45.0Bon [facility] HospitalpCO2, Twcdxlay69.6LowBon [facility] HealthpH, Art, Temp Adj7.4127.350 - 7.450Bon [facility] HospitalpH, Arterial7.4127.35 - 7.45Bon [facility] HospitalpO2, Art, Temp Zrg068.2HighBon [facility] HospitalpO2, Owvgzvpq517.2HighBon [facility] HospitalCBC auto differentialon [id number] (Bld) [#/Vol]0.05 10*3/uLBon [facility] HospitalBasophils/100 WBC (Bld)1 %0 - 2 %[facility] MontgomeryEosinophils (Bld) [#/Vol]0.11 10*3/uLBon [facility] HospitalEosinophils/100 WBC (Bld)3 %1 - 4 %[facility] MontgomeryErythrocyte distribution width (RBC) [Ratio]16.6 %High11.8 - 14.4 %[facility] Hematocrit (Bld) [Volume fraction]22.9 %Low36.3 - 47.1 %[facility] Hemoglobin (Bld) [Mass/Vol]7.2 g/dLLow11.9 - 15.1 g/dLBon [facility] Immature granulocytes (Bld) [#/Vol]0.03 10*3/uLBon [facility] HospitalImmature granulocytes/100 WBC (Bld)1 %Imkt4MvmLewisgale Hospital MontgomeryInterpretation and review of laboratory resultsAbnormalBon [facility] Community HospitalLymphocytes/100 WBC (Bld)20 %Low24 - 43 %[facility] MontgomeryLymphocytes/100 WBC (Bld)0.91 %Low Community Health SystemsH (RBC) [Entitic mass]28 pg25.2 - 33.5 pgCommunity Health SystemsHC (RBC) [Mass/Vol]31.4 g/dL28.4 - 34.8 g/dLBon [facility] HospitalMCV (RBC) [Entitic vol]89.1 fL82.6 - 102.9 fLLewisgale Hospital Montgomery Monocytes/100 WBC (Bld)8 %3 - 12 %[facility] MontgomeryMonocytes/100 WBC (Bld)0.35 %[facility] MontgomeryNeutrophils/100 WBC (Bld)68 %High36 - 65 %[facility] MontgomeryNucleated RBC/100 WBC (Bld) [Ratio]0 %0.0 per 100 WBCLewisgale Hospital MontgomeryPlatelet mean volume (Bld) [Entitic vol]10.3 fL8.1 - 13.5 fL [facility] MontgomeryPlatelets (Bld) [#/Vol]175 10*3/uLBon [facility] Community HospitalRBC (Bld) [#/Vol]2.57 10*6/uLLow3.95 - 5.11 m/uLLewisgale Hospital Montgomery Segmented neutrophils/100 WBC (Bld)3.03 %[facility] MontgomeryWBC other (Bld) [#/Vol]4.5Bon [facility] HospitalCBC with Diffon [id number]. Basophil0.05 k/uLNormal0.00-0.20MerGlenbeigh Hospital HospitalComment on above:Performed By: #### BNP, CBC, BMP #### [address] [place] [address] Ammunition Assembly Laborer: Jared Martinez.Imm.Granulocyte0.03 k/uLNormal0.00-0.30MerGlenbeigh Hospital HospitalComment on above:Performed By: #### BNP, CBC, BMP #### [address] [place], [place] [address]83 Ammunition Assembly Laborer: Jared Martinez.Neutrophil (Seg)3.03 k/uLNormal1.50-8.10[facility] - AndersonComment on above:Performed By: #### BNP, CBC, BMP #### [address] [place], [place] 126[address]83 Ammunition Assembly Laborer: Renan Huerta MDBasophils/100 WBC (Bld)1 %Normal0-2[facility] HospitalComment on above:Performed By: #### BNP, CBC, BMP #### [address] [place] [address] Ammunition Assembly Laborer: Renan Huerta MDEosinophils (Bld) [#/Vol]0.11 10*3/uLNormal 0.00-0.44[facility] HospitalComment on above:Performed By: #### BNP, CBC, BMP #### [address] [place] [address] Ammunition Assembly Laborer: Renan Huerta MDEosinophils/100 WBC (Bld)3 %Normal1-4[facility] HospitalComment on above:Performed By: #### BNP, CBC, BMP #### [address] [place], [place] [address] Ammunition Assembly Laborer: Renan Huerta MDErythrocyte distribution width (RBC) [Ratio]16.6 % High11.8-14.4[facility] - AndersonComment on above:Performed By: #### BNP, CBC, BMP #### [address] [place] [address] Ammunition Assembly Laborer: Renan Huerta MDHematocrit (Bld) [Volume fraction]22.9 %Low 36.3-47.1MChildren's Hospital for Rehabilitation HospitalComment on above:Performed By: #### BNP, CBC, BMP #### [address] [place] [address] Ammunition Assembly Laborer: Renan Huerta MDHemoglobin (Bld) [Mass/Vol]7.2 g/dLLow11.9-15.1 [facility] - AndersonComment on above:Performed By: #### BNP, CBC, BMP #### [address] [place] [address] Ammunition Assembly Laborer: Renan Huerta MDImmature granulocytes/100 WBC (Bld)1 %Nare0UlteiMount Carmel Health System HospitalComment on above:Performed By: #### BNP, CBC, BMP #### [address] [place] [address] Ammunition Assembly Laborer: Renan Huerta MDLymphocytes (Bld) [#/Vol]0.91 10*3/uLLow1.10-3.70 [facility] HospitalComment on above:Performed By: #### BNP, CBC, BMP #### [address] [place] [address] Ammunition Assembly Laborer: Mary Martinezmphocytes/100 WBC (Bld)20 %Fjt45-50Dstkq [facility]in HospitalComment on above:Performed By: #### BNP, CBC, BMP #### [address] [place] [address] Ammunition Assembly Laborer: SANDRA MartinezCH (RBC) [Entitic mass]28.0 qmPonhsp91.2-33.5 [facility] HospitalComment on above:Performed By: #### BNP, CBC, BMP #### [address] [place] [address] Ammunition Assembly Laborer: AMINAH MartinezC (RBC) [Mass/Vol]31.4 g/uGGemktf23.4-34.8[facility] HospitalComment on above:Performed By: #### BNP, CBC, BMP #### [address] [place] [address] Ammunition Assembly Laborer: SANDRA MartinezCV (RBC) [Entitic vol]89.1 xZKminpd79.6-102.9 [facility] HospitalComment on above:Performed By: #### BNP, CBC, BMP #### [address] [place] [address] Ammunition Assembly Laborer: SANDRA Martinezonocytes (Bld) [#/Vol]0.35 10*3/uLNormal0.10-1.20 [facility] - AndersonComment on above:Performed By: #### BNP, CBC, BMP #### [facility] [address] [place] [address] [place] [address] Ammunition Assembly Laborer: SANDRA Martinezonocytes/100 WBC (Bld)8 %Normal3-12[facility] - AndersonComment on above:Performed By: #### BNP, CBC, BMP #### [address] [place] [address] Ammunition Assembly Laborer: Naveed Martinez (Seg)68 %Xtkf19-02ThpdwOur Lady Of Mercy Hospital - Anderson Comment on above:Performed By: #### BNP, CBC, BMP #### [address] [place], [facility] Ammunition Assembly Laborer: Renan Huerta MDNRBC Automated0.0 per 100 WBCNormal0.0[facility] - AndersonComment on above:Performed By: #### BNP, CBC, BMP #### [address] [place] [address] Ammunition Assembly Laborer: Pari Martineztebriana mean volume (Bld) [Entitic vol]10.3 fL Normal8.1-13.5[facility] - AndersonComment on above:Performed By: #### BNP, CBC, BMP #### [address] [place] [address] Ammunition Assembly Laborer: KAREEN Martinezlatelets (Bld) [#/Vol]175 10*3/sAXkgiri663-293 [facility] - AndersonComment on above:Performed By: #### BNP, CBC, BMP #### [address] [place] [address] Ammunition Assembly Laborer: ROLY Martinez ([facility]) [#/Vol]2.57 10*6/uLLow3.95-5.11[facility] HospitalComment on above:Performed By: #### BNP CBC, BMP #### [facility] [address] [place] [address] Ammunition Assembly Laborer: MANDO Martinez ([facility]) [#/Vol]4.5 10*3/uLNormal3.5-11.3[facility] HospitalComment on above:Performed By: #### BNP, CBC, BMP #### [facility] [address] [place] [address] Ammunition Assembly Laborer: FRITZ Martinez FACIAL BONES WO CONTRASTon [id number] FACIAL BONES WO CONTRASTEXAMINATION: CT OF THE HEAD WITHOUT CONTRAST; CT [...] Signed by: Aleksandr Mota MD 03/22/25 Final resultNormalMerMt. Sinai Hospital HEAD WO CONTRASTon [id number] HEAD WO CONTRASTEXAMINATION: CT OF THE HEAD WITHOUT CONTRAST; CT [...] Signed by: Aleksandr Mota MD 03/22/25 Final resultNormalOur Lady Of Mercy Hospital - AndersonCardiac echo study Procedureon 03-22-2025 Ao Root Index1.33 cm/m2[facility] HealthAortic Root1.8 cmBon Secours Mercy HealthAortic Sinus Valsalva3.5 cmBon Secours Mercy HealthAortic Sinus Valsalva Index2.59 cm/m2[facility] HealthAR Max Velocity PISA3.7 m/sBon Secours Mercy HealthAR QQH076 msBon Secours Mercy HealthAscending Aorta3 cmBon Secours Mercy HealthAscending Aorta Index2.22 cm/m2[facility] HealthAV Area by Peak Velocity2.3 cm2[facility] HealthAV Area by VTI2.3 cm2[facility] HealthAV Cusp Mmode1.3 cmBon Secours Mercy HealthAV Mean Gradient4 mmHgBon Secours Mercy HealthAV Mean Velocity0.9 m/sBon Secours Mercy HealthAV Peak Enpwbigw5naHkZpe Secours Mercy HealthAV Peak Velocity1.3 m/sBon Secours Mercy HealthAV Velocity Ratio0.62[facility] HealthAV VTI27.3 cmBon [facility]ours Mercy HealthAVA/BSA Peak Velocity1.7 cm2/m2[facility] BILLY/BSA VTI1.7 cm2/m2[facility] HealthBody surface area Derived from formula1.31 m2[facility] HealthE/E' Mbsqrro22.09[facility] EF BP60 %55 - 100 %[facility] HealthEF Zdcurqzdz75 %[facility] HealthEst. RA Tnxsiaqn6ydEvSji Secours Mercy HealthFractional Shortening 2D28 % 28 - 44 %[facility] HealthInterpretation and review of laboratory results AbnormalBon [facility]ours Mercy HealthIVSd1.7 cmAbnormal0.6 - 0.9 cmBon Secours Mercy HealthLA Area 2C14.5 cm2[facility] HealthLA Area 4C12.2 cm2[facility] HealthLA Major Axis3.9 cmBon Secours Mercy HealthLA Minor Axis4.5 cmBon Secours Mercy HealthLA Volume BP36 mL22 - 52 mLBon Secours Mercy HealthLA Volume Index BP27 ml/m216 - 34 ml/m2[facility] HealthLA Volume Index MOD A2C28 ml/m216 - 34 ml/m2[facility] HealthLA Volume Index MOD A4C22 ml/m216 - 34 ml/m2[facility] HealthLA Volume MOD A2C38 mL22 - 52 mLBon Secours Mercy HealthLA Volume MOD A4C30 mL22 - 52 mLBon Secours Mercy HealthLV E' Lateral Velocity5.55 cm/sBon Secours Mercy HealthLV EDV A2C56 mLBon [facility] Health LV EDV A4C64 mLBon Secours Mercy HealthLV EDV Index A2C41 mL/m2[facility] HealthLV EDV Index A4C47 mL/m2Bon [facility] HealthLV Ejection Fraction A2C 60 %[facility] HealthLV Ejection Fraction A4C61 %[facility] LV ESV A2C23 mLBon Secours Mercy HealthLV ESV A4C25 mLBon Secours Mercy HealthLV ESV Index A2C17 mL/m2[facility] HealthLV ESV Index A4C19 mL/m2Bon [facility] Mer[facility] HealthLV Mass 2D153 g67 - 162 gBon Secours Mercy HealthLV Mass 2D Owxuq662.4 g/g8Tnsyungt21 - 95 g/m2Bon [facility] Mer[facility] HealthLV RWT Ratio0.69[facility] HealthLVIDd3.2 cmAbnormal3.9 - 5.3 cmBon Secours Mercy HealthLVIDd Index2.37 cm/m2[facility] HealthLVIDs2.3 cmBon Secours Mercy HealthLVIDs Index1.7 cm/m2[facility] HealthLVOT Area3.8 cm2[facility] LVOT Diameter2.2 cmBon Secours Mercy HealthLVOT Mean Edioxyqk6ooDuZub Secours Mercy HealthLVOT Peak Yatultor8geGrTcg Secours Mercy HealthLVOT Peak Velocity0.8 m/sBon Secours Mercy HealthLVOT Stroke Volume Index46.4 mL/m2Bon [facility] Mercy HealthLVOT SV62.7 mlSentara Norfolk General Hospitaljackelyn City Hospitalbrissa HealthLVOT VTI16.5 cmHealthsouth Rehabilitation Hospital [facility] Secjackelyn City Hospitalbrissa HealthLVOT:AV VTI Index0.6Bon Secjackelyn Owen HealthLVPWd1.1 cmAbnormal0.6 - 0.9 cmHealthsouth Rehabilitation Hospital Of Southern [facility] Niles Owen HealthMV A Velocity0.97 m/sBon Secours Mercbrissa HealthMV E Velocity0.56 m/sBon Secours Mercy HealthMV E Wave Deceleration Thst460 msBon Secjackelyn City Hospitalbrissa HealthMV E/A0.58Bon [facility] City Hospitalbrissa HealthPV Max Velocity0.9 m/sBon Secours Mercy HealthPV Peak Diskqtzt4gpNmXxr Secjackelyn Owen BurjyfBKZE94bxSsTxt Secours City Hospitalbrissa HealthSinotubular Junction1.7 cmBon Secours Mercy HealthTAPSE1.8 cm1.7 cmBon Secjackelyn Owen HealthTR Max Velocity2.83 m/sBon Secours City Hospitalbrissa Health TR Peak Quufxomg42rmSuWsa Barrow Neurological Institutejackelyn City Hospitalbrissa St. Vincent HospitalAddendum by Toni Moore MD on 03/22/2025 12:58 [...] Details Image quality: adequate. No contrast was given.[facility] Medical CenterRadiology Study observation (narrative)[facility] Metabolic Pr/rfx MGon [id number] [Mass/Vol]3.0 g/dLLow3.5-5.2 [facility] - AndersonComment on above:Performed By: #### BNP CBC, BMP #### [address] [place] [address] Ammunition Assembly Laborer: Renan Huerta MDAlbumin/Glob Ratio1.2Pookyc1.0-2.5[facility] on above:Performed By: #### BNP CBC, BMP #### [address] [place] [address] Ammunition Assembly Laborer: Abdi Martinez Phos50 U/TUfyuwe02-537UtcujKindred Hospital Dayton on above:Performed By: #### BNP CBC, BMP #### [address] [place] [address] Ammunition Assembly Laborer: Renan Huerta MDALT [Catalytic activity/Vol]11 U/POcapuj07-19Unugy [facility]bock HospitalComment on above:Performed By: #### BNP, CBC, BMP #### [address] [place] [address] Ammunition Assembly Laborer: Renan Huerta MDAnion gap [Moles/Vol]10 mmol/LNormal9-16[facility] HospitalComment on above:Performed By: #### BNP, CBC, BMP #### [address] [place] [address] Ammunition Assembly Laborer: Renan Huerta MDAST [Catalytic activity/Vol]26 U/RFlnduj41-59ShibfOur Lady Of Mercy Hospital - AndersonComment on above:Performed By: #### BNP, CBC, BMP #### [address] [place], [place] 8[address]183 Ammunition Assembly Laborer: Renan Huerta MDBilirubin [Mass/Vol]0.4 mg/dLNormal0.00-1.20[facility] - AndersonComment on above:Performed By: #### BNP, CBC, BMP #### [address] [place], [place] [address] Ammunition Assembly Laborer: Renan Huerta MDBUN/CRE Cjcwd66Cudfen3-39Yeyef [facility] Comment on above:Performed By: #### BNP, CBC, BMP #### [address] [place] [address] Ammunition Assembly Laborer: TUAN Martinezalcium [Mass/Vol]7.4 mg/dLLow8.6-10.4[facility] - AndersonComment on above:Performed By: #### BNP, CBC, BMP #### [address] [place], [place] [address] [employer]orer: TUAN Martinezhloride [Moles/Vol]107 mmol/KEdxxev26-593MemecOur Lady Of Mercy Hospital - AndersonComment on above:Performed By: #### BNP, CBC, BMP #### [address] [place] [address] Ammunition Assembly Laborer: TUAN MartinezO2 [Moles/Vol]19 mmol/NUor49-36YhhwfOur Lady Of Mercy Hospital - AndersonComment on above:Performed By: #### PILAR CBC, BMP #### [address] [place], [place] [address]83 [employer] Laborer: TUAN Martinezreatinine [Mass/Vol]2.0 mg/dLHigh0.50-0.90Our [facility] Of Mercy Hospital - AndersonComment on above:Performed By: #### CAILIN QUEZADA, BMP #### [address] [place] [address] [employer]munition Assembly Laborer: Renan Huerta MDGFR/1.73 sq M.predicted among non-blacks MDRD (S/P/Bld) [Vol rate/Area]24 mL/min/{1.73_m2}Low>60Our [facility] Of Mercy Hospital - AndersonComment on above:Result Comment: These results are not intended for [...] or following therapy that affects renal tubular secretion.Performed By: #### CAILIN QUEAZDA, BMP #### [address] [place] [address] Ammunition Assembly Laborer: Renan Huerta MDGlucose [Mass/Vol]82 mg/dOWzbmon28-92FcwqrFirelands Regional Medical Center South CampusComment on above:Performed By: #### CAILIN QUEZADA, BMP #### [address] [place] [address] Ammunition Assembly Laborer: KAREEN Martinezotassium [Moles/Vol]4.2 mmol/LNormal3.7-5.3MChildren's Hospital for Rehabilitation HospitalComment on above:Performed By: #### PILAR CBC, BMP #### [facility] [address] [place] [address] Ammunition Assembly Laborer: KAREEN Martinezrotein [Mass/Vol]4.9 g/dLLow6.6-8.7Our [facility] Mer[facility] Hospital - AndersonComment on above:Performed By: #### BNP, CBC, BMP #### [facility] [address] [place] [address] [employer]munition [employer] Laborer: BURKE Martinezodium [Moles/Vol]136 mmol/CYhixvb951-134Nonmu Tiffin HospitalComment on above:Performed By: #### BNP, CBC, BMP #### [address] [place] [address] Ammunition Assembly Laborer: Renan Huerta MDUrea nitrogen [Mass/Vol]33 mg/dLHigh8-23Our [facility] Of Mer[facility] Hospital - AndersonComment on above:Performed By: #### BNP, CBC, BMP #### [address] [place] [address] Am[employer] Laborer: TUAN Martinezomprehensive Metabolic Panel w/ Reflex to on [id number] [Mass/Vol]3 g/dLLow3.5 - 5.2 g/dLBon [facility] Albumin/Globulin [Mass ratio]1.6 {ratio}1.0 - 2.5Bon [facility] HealthALP [Catalytic activity/Vol]50 U/L35 - 104 U/LBon [facility] HealthALT [Catalytic activity/Vol]11 U/L10 - 35 U/LBon [facility] HospitalAnion gap [Moles/Vol]10 mmol/L9 - 16 mmol/LBon [facility] HealthAST [Catalytic activity/Vol]26 U/L10 - 35 U/LBon [facility] HealthBilirubin [Mass/Vol]0.4 mg/dL0.00 - 1.20 mg/dL Bon [facility] HealthCalcium [Mass/Vol]7.4 mg/dLLow8.6 - 10.4 mg/dLBon Secours Mercy HealthChloride [Moles/Vol]107 mmol/L98 - 107 mmol/LBon [facility] HospitalCO2 [Moles/Vol]19 mmol/LLow20 - 31 mmol/LBon [facility] Creatinine [Mass/Vol]2.0 mg/dLHigh0.50 - 0.90 mg/dLBon [facility] HospitalEst, Glom Filt Fbrq15Scl- PINFBon [facility] HospitalComment on above: These results are not intended [...] therapy that affects renal tubular secretion. Glucose [Mass/Vol]82 mg/dL74 - 99 mg/dLBon [facility] HospitalInterpretation and review of laboratory resultsAbnormCJW Medical CenterPotassium [Moles/Vol]4.2 mmol/L3.7 - 5.3 mmol/LBon [facility] HospitalProtein [Mass/Vol] 4.9 g/dLLow6.6 - 8.7 g/dLBon [facility] HospitalSodium [Moles/Vol]136 mmol/L136 - 145 mmol/LBon [facility] HospitalUrea nitrogen [Mass/Vol]33 mg/dLHigh8 - 23 mg/dLBon [facility] HospitalUrea nitrogen/Creatinine [Mass ratio]17 mg/mg9 - 20 Bon [facility] HospitalEKG Rhythm Stripon 03-22-2025 [facility] ValleyMicroscopic Urinalysison [id number] LM Ql (Urine sed)TRACEAbnormalNoneBon [facility] HospitalCasts LM.LPF (Urine sed) [#/Area]2 TO 5 HYALINE/LPFBon [facility] HospitalEpithelial cells LM.HPF (Urine sed) [#/Area]5 TO 10Bon [facility] HospitalInterpretation and review of laboratory resultsAbnormCJW Medical CenterRBC LM.HPF (Urine sed) [#/Area]NoneBon [facility] LM.HPF (Urine sed) [#/Area]10 TO 20Bon [facility] Panel Informationon . No acute intracranial abnormality. 2. No acute facial bone fracture. 3. Mild soft tissue swelling along the left lateral aspect of the face. [facility] CONSOLIDATEDEXAMINATION: CT OF THE HEAD WITHOUT CONTRAST; CT [...] changes are noted along the temporomandibular joints. [facility] Aleksandr Sam MD - 03/22/2025 EXAMINATION: CT OF THE [...] the left lateral aspect of the face. Bon [facility] HospitalNo Panel InformationOrdered By: Aleksandr Mota on [id number] [facility] Work Phone: PTon [phone] Coag (PPP) [Relative time]1.8 {INR} NormalMerRockville General HospitalComment on above:Result Comment: Therapeutic Range: Moderate Anticoagulant Intensity: INR = 2.0-3.0 High Anticoagulant Intensity: INR = 2.5-3.5Performed By: #### BNP, CBC, BMP #### [facility] [address] [place], [place] [address] [employer]orer: KAREEN MartinezT Coag (PPP) [Time]21.4 sHigh12.0-15.0[facility] Hospitalment on above:Performed By: #### BNP, CBC, BMP #### [facility] [address] [place], [place] [address] Am[employer] Laborer: KAREEN Martinezrotime-INRon 01-77-8090PRU Coag (PPP) [Relative time]1.8 {INR}Bon [facility] HospitalComment on above: Therapeutic Range: Moderate Anticoagulant Intensity: INR = 2.0-3.0 High Anticoagulant Intensity: INR = 2.5-3.5 Interpretation and review of laboratory resultsAbnormalLewisgale Hospital Montgomery PT Coag (PPP) [Time]21.4 sHighBon [facility] HospitalBon [facility] Health Urinalysison 01-91-8497Ctuowbakv Ql (U)SMALLAbnormalNEGATIVEBon SecPointe [facility] HealthClarity (U)ClearClearBon SecPointe Coupee General Hospital HealthColor (U)YellowYellowBon [facility] HospitalGlucose Test strip (U) [Mass/Vol]NegativeNEGATIVE mg/dLBon [facility] HospitalHemoglobin Auto test strip Ql (U)NegativeNEGATIVEBon [facility] HealthInterpretation and review of laboratory resultsAbnormalBon [facility] HealthKetones (U) [Mass/Vol]NegativeNEGATIVE mg/dLBon [facility] Leukocyte esterase Test strip Ql (U)TRACEAbnormalNEGATIVEBon [facility] HealthNitrite Ql (U)NegativeNEGATIVEBon [facility] HealthpH (U)6 [pH]5.0 - 9.0Bon SecPointe Coupee [facility] HealthProtein (U) [Mass/Vol]TRACEAbnormalNEGATIVE mg/dLBon [facility] Centery HealthSpecific gravity (U) [Rel density]1.021.010 - 1.020Bon [facility] HospitalUrobilinogen Qn (U)Normal0.0 - 1.0 EU/dLBon [facility] Ada HealthUrinalysis, Routineon 65-33-0807Bphmjngcr, SemiQt,UrSMALLAbnormalNEGMerGlenbeigh Hospital HospitalComment on above:Performed By: #### CMPX, PT, CDP #### [facility] [address] [place] [address] Dr[address] [place], [place] [address]83 Ammunition [employer] Laborer: Grupo Martinez, UrineNegativeSt. Mary's Medical [facility] Comment on above:Performed By: #### CMPX, PT, CDP #### [facility] [address] [place] [address] [place] [address] [employer] Laborer: TUAN Martinezlarity ()ClearNoalCLEAROur Lady Of Mercy Hospital - Anderson Comment on above:Performed By: #### CMPX, PT, CDP #### [address] [place] [address] Ammunition Assembly Laborer: TUAN Martinezolor (U)YellowNoalYTrumbull Memorial Hospital Comment on above:Performed By: #### CMPX, PT, CDP #### [facility] [address] [place] [address] Dr[address] [place], [place] [address]83 Am[employer] Laborer: Renan Huerta MDGlucose Ql (U)NegativeNormalNEGMerRockville General HospitalComment on above:Performed By: #### CMPX, PT, CDP #### [facility] [address] [place] [address] [place] [address] [employer] Laborer: Renan Huerta MDKetones Ql (U)NegativeNormalNEGOur Lady Of Mercy Hospital - AndersonComment on above:Performed By: #### CMPX, PT, CDP #### [facility] [address] [place] [address] [place] [address] [employer] Laborer: Renan Huerta MDLeukocyte esterase Test strip Ql (U)TRACEAbnormal NEGOur Lady Of Mercy Hospital - AndersonComment on above:Performed By: #### CMPX, PT, CDP #### [facility] [address] [place] [address] [place] [address] [employer] Laborer: Renan Huerta MDNitrite,UrNegativeNormalNEGOur Lady Of Mercy Hospital - Anderson Comment on above:Performed By: #### CMPX, PT, CDP #### [facility] [address] [place] [address] [place] [address] Am[employer] Laborer: KAREEN Martinez,Ur6.3Omjpxe5.0-9.0[facility] HospitalComment on above:Performed By: #### CMPX, PT, CDP #### [facility] [address] [place] [address] [place] [address] [employer] Laborer: KAREEN Martinezvirtua marlton Ql (U)TRACEAbnormalNEGOur Lady Of Mercy Hospital - AndersonComment on above:Performed By: #### CMPX, PT, CDP #### [address] [place] [address] Ammunition Assembly Laborer: Greg Martinez. [place],Ur1.006Ohbtps9.010-1.020MerRockville General HospitalComment on above:Performed By: #### CMPX, PT, CDP #### [address] [place] [address] Ammunition Assembly Laborer: Jamin Martinezbilinogen,UrNormalNormal0.0-1.0Mer[facility] HospitalComment on above:Performed By: #### CMPX, PT, CDP #### [facility] [address] [place] [address] [place] [address] Ammunition [employer] Laborer: Renan Huerta MDUrinalysis,Microon 04-58-2677ZkjgtmvyFPRGXNnicakhi NONEOur Lady Of Mercy Hospital - AndersonComment on above:Performed By: #### CMPX, PT, CDP #### [address] [place] [address] Ammunition Assembly Laborer: TUAN Martinezasts2 TO 5NormalMercy Lubbock HospitalComment on above:Result Comment: HYALINEPerformed By: #### CMPX, PT, CDP #### [facility] [address] [place] [address] Ammunition [employer] Laborer: Renan Huerta MDEpithelial cells LM Ql (Urine sed)5 TO 10Normal 0-25Mer[facility] HospitalComment on above:Performed By: #### CMPX, PT, CDP #### [facility] [address] [place] [address] Ammunition [employer] Laborer: Renan Huerta MDUrine RBC'sNoneNormal0-2MercConnecticut Hospice Comment on above:Performed By: #### CMPX, PT, CDP #### [facility] [address] [place] [address] Ammunition Assembly Laborer: Servando Martinez WBC's10 TO 17Cutcvu8-6PvpznOur Lady Of Mercy Hospital - Anderson Comment on above:Performed By: #### CMPX, PT, CDP #### [address] [place], [place] [address]83 Am[employer] Laborer: Renan Huerta MDBrain Natri. Peptideon [id number] peptide B (Bld) [Mass/Vol]4056 pg/mLHigh0-450Mer[facility] HospitalComment on above:Performed By: #### PTT #### [facility] [address] [place] [address] Ammunition [employer] Laborer: Renan Huerta MDBrain Natriuretic Peptideon [id number] peptide B (Bld) [Mass/Vol]4056 pg/mLHigh0 - 450 pg/mLBon Secours University Hospitals Samaritan Medical CenterCBC with Auto Differentialon [id number] (Bld) [#/Vol]0.04 10*3/uLBon SecProMedica Flower HospitalBasophils/100 WBC (Bld)0 %0 - 2 %[facility] Eosinophils (Bld) [#/Vol][facility]ar[facility] Medical CenterEosinophils/100 WBC (Bld)0 %Low 1 - 4 %[facility] HealthErythrocyte distribution width (RBC) [Ratio]16.4 %High11.8 - 14.4 %[facility] HealthHematocrit (Bld) [Volume fraction]28.1 %Low36.3 - 47.1 %[facility] HealthHemoglobin (Bld) [Mass/Vol]9 g/dLLow 11.9 - 15.1 g/dLBon Secours Mercy HealthImmature granulocytes (Bld) [#/Vol]0.04 10*3/uLBon Secours Mercy HealthImmature granulocytes/100 WBC (Bld)0 %0Bon [facility] City Hospitaly HealthInterpretation and review of laboratory resultsAbnormalBon Secours Mercy HealthLymphocytes/100 WBC (Bld)10 %Low24 - 43 %[facility] HealthLymphocytes/100 WBC (Bld)0.89 %LowBon Secours City Hospitaly [facility] Memorial HospitalH (RBC) [Entitic mass]28.1 pg25.2 - 33.5 pgBon Secours City Hospitaly HealthHC (RBC) [Mass/Vol] 32 g/dL28.4 - 34.8 g/dLBon Secours Mercy HealthMCV (RBC) [Entitic vol]87.8 fL 82.6 - 102.9 fLBon Secours Mercy HealthMonocytes/100 WBC (Bld)4 %3 - 12 %[facility] HealthMonocytes/100 WBC (Bld)0.41 %[facility] Neutrophils/100 WBC (Bld)86 %High36 - 65 %[facility] HealthNucleated RBC/100 WBC (Bld) [Ratio]0 %0.0 per 100 WBCBon Secours Mercy HealthPlatelet mean volume (Bld) [Entitic vol]10.1 fL8.1 - 13.5 fLBon Secours Mercy HealthPlatelets (Bld) [#/Vol]237 10*3/uLBon Secours Mercy HealthRBC (Bld) [#/Vol]3.2 10*6/uLLow 3.95 - 5.11 m/uLBon Secours Mercy HealthSegmented neutrophils/100 WBC (Bld)7.97 %[facility] HealthWBC other (Bld) [#/Vol]9.4Bon [facility] HospitalBon [facility] with Diffon 07-04-6967Oek. Basophil0.04 k/uLNormal 0.00-0.20Mer[facility] HospitalComment on above:Performed By: #### CMPX, PT, CDP #### [address] [place], [facility] Ammunition [employer] Laborer: Jared Martinez. Eosinophil<0.41Uazsuv0.00-0.44MerGlenbeigh Hospital HospitalComment on above:Performed By: #### CMPX, PT, CDP #### [address] [place], [facility] Ammunition Assembly Laborer: Jared Martinez.Imm.Granulocyte0.04 k/uLNormal0.00-0.30MerGlenbeigh Hospital HospitalComment on above:Performed By: #### CMPX, PT, CDP #### [address] [place], [place] [address] Ammunition Assembly Laborer: Jared Martinez.Neutrophil (Seg)7.97 k/uLNormal1.50-8.10MerGlenbeigh Hospital HospitalComment on above:Performed By: #### CMPX, PT, CDP #### [address] [place], [facility] Ammunition [employer] Laborer: Renan Huerta MDBasophils/100 WBC (Bld)0 %Normal0-2[facility] HospitalComment on above:Performed By: #### CMPX, PT, CDP #### [address] [place], [facility] Ammunition Assembly Laborer: Renan Huerta MDEosinophils/100 WBC (Bld)0 %Low1-4[facility] HospitalComment on above:Performed By: #### CMPX, PT, CDP #### [address] [place], [facility] Ammunition [employer] Laborer: Renan Huerta MDErythrocyte distribution width (RBC) [Ratio]16.4 % High11.8-14.4[facility] - AndersonComment on above:Performed By: #### CMPX, PT, CDP #### [address] [place] [address] Ammunition Assembly Laborer: Renan Huerta MDHematocrit (Bld) [Volume fraction]28.1 %Low 36.3-47.1MChildren's Hospital for Rehabilitation HospitalComment on above:Performed By: #### CMPX, PT, CDP #### [address] [place] [address] Ammunition Assembly Laborer: Renan Huerta MDHemoglobin (Bld) [Mass/Vol]9.0 g/dLLow11.9-15.1 [facility] - AndersonComment on above:Performed By: #### CMPX, PT, CDP #### [address] [place], [facility] Ammunition [employer] Laborer: Renan Huerta MDImmature granulocytes/100 WBC (Bld)0 %Dwxhvt7RmcmiOur Lady Of Mercy Hospital - AndersonComment on above:Performed By: #### CMPX, PT, CDP #### [address] [place] [address] Ammunition Assembly Laborer: Renan Huerta MDLymphocytes (Bld) [#/Vol]0.89 10*3/uLLow1.10-3.70 [facility] - AndersonComup health system on above:Performed By: #### CMPX, PT, CDP #### [address] [place] [address] Ammunition Assembly Laborer: Renan Huerta MDLymphocytes/100 WBC (Bld)10 %Rvc99-88Tccjs [facility]iffin HospitalComment on above:Performed By: #### CMPX, PT, CDP #### [address] [place], [place] [address]483 Ammunition Assembly Laborer: SANDRA MartinezCH (RBC) [Entitic mass]28.1 nhWtjfil19.2-33.5 [facility] - AndersonComment on above:Performed By: #### CMPX, PT, CDP #### [address] [place], [place] [address]83 Ammunition Assembly Laborer: SANDRA MartinezCHC (RBC) [Mass/Vol]32.0 g/hXYkxdjx52.4-34.8[facility] - AndersonComment on above:Performed By: #### CMPX, PT, CDP #### [address] [place], [place] [address]83 Ammunition Assembly Laborer: SANDRA MartinezCV (RBC) [Entitic vol]87.8 xKGhstez54.6-102.9 [facility] - AndersonComment on above:Performed By: #### CMPX, PT, CDP #### [address] [place], [place] [address]83 Ammunition Assembly Laborer: SANDRA Martinezonocytes (Bld) [#/Vol]0.41 10*3/uLNormal0.10-1.20 [facility] - AndersonComment on above:Performed By: #### CMPX, PT, CDP #### [address] [place], [place] [address]683 Ammunition Assembly Laborer: SANDRA Martinezonocytes/100 WBC (Bld)4 %Normal3-12[facility] - AndersonComment on above:Performed By: #### CMPX, PT, CDP #### [address] [place], [place] [address]83 Ammunition Assembly Laborer: Shirlene Martinezutrophil (Seg)86 %Qzoh27-96LcrhhOur Lady Of Mercy Hospital - Anderson Comment on above:Performed By: #### CMPX, PT, CDP #### [address] [place], [place] 485[address]83 Ammunition Assembly Laborer: WILLARD Martinez Automated0.0 per 100 WBCNormal0.0[facility] - AndersonComment on above:Performed By: #### CMPX, PT, CDP #### [address] [place], [place] [address] Ammunition Assembly Laborer: Sal Martinez mean volume (Bld) [Entitic vol]10.1 fL Normal8.1-13.5[facility] - AndersonComment on above:Performed By: #### CMPX, PT, CDP #### [address] [place], [place] [address] Ammunition Assembly Laborer: Maggie Martinez (Bld) [#/Vol]237 10*3/jHAjflid329-159 [facility] - AndersonComment on above:Performed By: #### STEPHIE, PT, CDP #### [address] [place], [place] 2040583 Ammunition Assembly Laborer: ROLY Martinez (Bld) [#/Vol]3.20 10*6/uLLow3.95-5.11[facility] - AndersonComment on above:Performed By: #### STEPHIE, PT, CDP #### [address] [place] [address] Ammunition Assembly Laborer: MANDO Martinez (Bld) [#/Vol]9.4 10*3/uLNormal3.5-11.3MChildren's Hospital for Rehabilitation HospitalComment on above:Performed By: #### VIDYAX, PT, CDP #### [address] [place], [place] [address]83 Ammunition Assembly Laborer: Georgiana Martinez 00-49-2257Iomgypk/Globulin [Mass ratio]1.5 {ratio}1.0 - 2.5Bon SecProMedica Flower HospitalALP [Catalytic activity/Vol]61 U/L35 - 104 U/LBon [facility] HospitalEst, Glom Filt Aqdm25Jft- PINFBon [facility] HospitalComment on above: These results are not intended [...] affects renal tubular secretion. Urea nitrogen/Creatinine [Mass ratio]13 mg/mg9 - 20Bon [facility] CERVICAL SPINE WO CONTRASTon [id number] CERVICAL SPINE WO CONTRASTEXAMINATION: CT OF THE CERVICAL SPINE WITHOUT CONTRAST [...] Signed by: Tami Zabala MD 03/21/25 Final resultNormalMercy Bristol Hospital Cervical spine WO contraston . No acute fracture or subluxation of the cervical spine. 2. Multilevel degenerative changes with likely at least moderate spinal canal stenosis at C4-C5 and C5-C6. [facility] RIS CONSOLIDATEDEXAMINATION: CT OF THE CERVICAL SPINE WITHOUT CONTRAST [...] There is no prevertebral soft tissue swelling. [facility] Tami Hays MD - 03/21/2025 EXAMINATION: CT OF THE [...] spinal canal stenosis at C4-C5 and C5-C6. [facility] MontgomeryRadiology Study observation (narrative)[facility] MontgomeryCT Cervical spine WO contrastOrdered By: Tami Zabala on 03-21-2025 [facility] Work Phone: CT Facial bones WO contraston 91-37-1956Rpxuxcqgl Study observation (narrative)[facility] HealthCT Head WO contraston [id number] Study observation (narrative)[facility] MontgomeryComp Metabolic Profon 26-96-0132Fghhnqs [Mass/Vol]3.8 g/dLNormal3.5-5.2Bon [facility] Systemment on above:Performed By: #### CMPX, PT, CDP #### [address] [place], [place] [address]83 Am[employer] Assembly Laborer: Renan Huerta MDALT [Catalytic activity/Vol]15 U/DXfxszn31-67Yzb [facility] on above:Performed By: #### CMPX, PT, CDP #### [address] [place] [address] Ammunition Assembly Laborer: Renan Huerta MDAnion gap [Moles/Vol]13 mmol/LNormal9-16Bon [facility] on above:Performed By: #### CMPX, PT, CDP #### [address] [place] [address] Ammunition Assembly Laborer: Renan Huerta MDAST [Catalytic activity/Vol]29 U/ZBtubfs10-09Esp [facility] on above:Performed By: #### CMPX, PT, CDP #### [address] [place] [address] Ammunition Assembly Laborer: Renan Huerta MDBilirubin [Mass/Vol]0.5 mg/dLNormal0.00-1.20Bon [facility] on above:Performed By: #### CMPX, PT, CDP #### [address] [place], [place] [address]39683 Ammunition Assembly Laborer: Renan Sturtz, MDCalcium [Mass/Vol]8.5 mg/dLLow8.6-10.4Bon [facility]St. [facility] Hospital on above:Performed By: #### VIDYAX PT, CDP #### [address] [place] [address] Ammunition Assembly Laborer: TUAN Martinezhloride [Moles/Vol]102 mmol/ZQuazbr67-598Pbl [facility] on above:Performed By: #### VIDYAX, PT, CDP #### [address] [place] [address] Ammunition Assembly Laborer: Renan Huerta MDCO2 [Moles/Vol]19 mmol/NQwq32-78Khl [facility] on above:Performed By: #### STEPHIE PT, CDP #### [address] [place], [place] [address]60383 Am[employer] Assembly Laborer: TUAN Martinezreatinine [Mass/Vol]2.5 mg/dLHigh0.50-0.90Bon [facility] on above:Performed By: #### STEPHIE PT, CDP #### [address] [place] [address] Ammunition Assembly Laborer: Renan Huerta MDGlucose [Mass/Vol]107 mg/kKHvvy65-03Hyp [facility] on above:Performed By: #### VIDYAX, PT, CDP #### [address] [place], [place] [address]83 Am[employer] Assembly Laborer: KAREEN Martinezotassium [Moles/Vol]4.7 mmol/LNormal3.7-5.3Bon [facility]St. [facility] Hospital on above:Performed By: #### CMPX, PT, CDP #### [address] [place], [place] [address]83 Am[employer] Assembly Laborer: KAREEN Martinezrotein [Mass/Vol]6.4 g/dLLow6.6-8.7Bon [facility] HospitalComment on above:Performed By: #### CMPX, PT, CDP #### [address] [place], [place] 112[address]83 Ammunition Assembly Laborer: BURKE Martinezodium [Moles/Vol]134 mmol/NCbv253-605Vln [facility] HospitalComment on above:Performed By: #### CMPX, PT, CDP #### [address] [place], [place] [address]283 Ammunition Assembly Laborer: Renan Huerta MDUrea nitrogen [Mass/Vol]33 mg/dLHigh8-23Bon [facility] HospitalComment on above:Performed By: #### CMPX, PT, CDP #### [address] [place] [address] Ammunition Assembly Laborer: Renan Huerta MDAlbumin/Glob Ratio1.1Kaaqlx4.0-2.5[facility] - AndersonComment on above:Performed By: #### VIDYAX, PT, CDP #### [address] [place], [place] 417[address]83 Ammunition Assembly Laborer: Abdi Martinez Phos61 U/CQvcdpa85-647QwzdwOur Lady Of Mercy Hospital - AndersonComment on above:Performed By: #### VIDYAX, PT, CDP #### [address] [place], [place] 0954283 Ammunition Assembly Laborer: Renan Huerta MDBUN/CRE Cobtu64Pwyvsx0-28Ntmsj [facility] Comment on above:Performed By: #### VIDYAX, PT, CDP #### [address] [place] [address] Ammunition Assembly Laborer: Renan Huerta MDGFR/1.73 sq M.predicted among non-blacks MDRD (S/P/Bld) [Vol rate/Area]18 mL/min/{1.73_m2}Low>60[facility] - AndersonComment on above:Result Comment: These results are not intended for [...] or following therapy that affects renal tubular secretion.Performed By: #### CMPX, PT, CDP #### [facility] [address] [place] [address] Ammunition Assembly Laborer: LEATHA MartinezG 12 [place] 11-39-3893Sauvtn Hvbu35GNGHqo Secours Mercy HealthP Jyrs50lkkgpyuIoo [facility]ours City Hospitaly HealthP-R Zfaxgvrj498 msBon Secours Mercy HealthQ-T Prxvzpun603 msBon Secours Mercy HealthQRS Rwuydsip50 ms [facility] HealthQTc Calculation (Brady)471 msBon Secours [facility] Hospitaly HealthR Hqst00jzlegtxPwe [facility] HealthT Hvji52agyjhjdTal [facility] Health Ventricular Hfyn06JPEVnt [facility] HealthNormal sinus rhythm Possible Left atrial enlargement Borderline ECG ECG not diagnostic for Acute Coronary Syndrome; consider clinical findings When compared with ECG of 20-Mar-2025 10:36, No significant change was found Confirmed by Toni Moore ([id number]) on 03/21/2025 5:12:54 PMArkansas Valley Regional Medical CenterToni MD - 03/21/2025 Normal sinus rhythm Possible Left atrial enlargement Borderline ECG ECG not diagnostic for Acute Coronary Syndrome; consider clinical findings When compared with ECG of 20-Mar-2025 10:36, No significant change was found Confirmed by Toni Moore ([id number]) on 03/21/2025 5:12:54 PM [facility] HealthHealthsouth [facility] Panel Informationon [id number] and review of laboratory resultsAbnormalBon [facility] City HospitalInterpretation and review of laboratory resultsAbnormalWarren Memorial Hospital 03-21-2025 INR Coag (PPP) [Relative time]1.3 {INR}NormalOur Lady Of Mercy Hospital - AndersonComment on above:Result Comment: Therapeutic Range: Moderate Anticoagulant Intensity: INR = 2.0-3.0 High Anticoagulant Intensity: INR = 2.5-3.5Performed By: #### CMPX, PT, CDP #### [facility] [address] [place] [address] [place] [address] [employer] Laborer: LIZETH Martinez Coag (PPP) [Time]17.0 sHigh12.0-15.0[facility] - AndersonComment on above:Performed By: #### CMPX, PT, CDP #### [facility] [address] [place] [address] [employer] Laborer: KAREEN Martinezputnam county memorial hospitalable XR Chest AP single viewon . No acute findings. 2. Stable enlargement of the heart. 3. Hyperinflated lungs. 4. Blunting of the left and right costophrenic angles due to pleural fluid or pleural thickening. [facility] CONSOLIDATEDEXAM: 1 VIEW XRAY OF THE CHEST 03/21/2025 [...] descending thoracic aorta. No acute osseous abnormality. [facility] Antwan Webb MD - 03/21/2025 EXAM: 1 VIEW XRAY [...] due to pleural fluid or pleural thickening. [facility] MontgomeryRadiology Study observation (narrative)[facility] Systemable XR Chest AP single viewOrdered By: Antwan Arriola on [id number] Hospital Pulaski Work Phone: [phone]-TJZnm 75-11-9848UKQ Coag (PPP) [Relative time] 1.3 {INR}[facility] on above: Therapeutic Range: Moderate Anticoagulant Intensity: INR = 2.0-3.0 High Anticoagulant Intensity: INR = 2.5-3.5 Interpretation and review of laboratory resultsAbnormalLewisgale Hospital Montgomery PT Coag (PPP) [Time]17.0 sHighBon [facility] Troponinon [id number] I.cardiac High sensitivity method [Mass/Vol]66 ng/LCritically high0 - 14 ng/LBon [facility] on above:High Sensitivity Troponin values cannot be compared with other Troponin methodologies.Troponin, High Sens66 ng/LCritically high0-14[facility] Comment on above:Result Comment: High Sensitivity Troponin values cannot be compared with other Troponin methodologies.Performed By: #### PTT #### [facility] [address] [place] [address] [employer] Laborer: Juan Martinez I.cardiac High sensitivity method [Mass/Vol]76 ng/LCritically high0 - 14 ng/LBon [facility] on above:High Sensitivity Troponin values cannot be compared with other Troponin methodologies.Troponin, High Sens76 ng/LCritically high0-14[facility] Comment on above:Result Comment: High Sensitivity Troponin values cannot be compared with other Troponin methodologies.Performed By: #### CMPX, PT, CDP #### [facility] [address] [place] [address] [employer] Laborer: LALITA Martinez CHEST PORTABLEon [id number] CHEST PORTABLE EXAM: 1 VIEW XRAY OF [...] Signed by: Antwan Arriola MD 03/21/25 Final resultNormUniversity Hospitals Ahuja Medical CenterBrain Natri. Peptideon 03-20-2025 Natriuretic peptide B (Bld) [Mass/Vol]4103 pg/mLHigh0-450[facility] Comment on above:Performed By: #### BNP, CBC, BMP #### [facility] [address] [place] [address] [employer] Laborer: Renan Huerta MDBrain Natriuretic Peptideon 03-20-2025 Interpretation and review of laboratory resultsAbnormalLewisgale Hospital Montgomery Natriuretic peptide B (Bld) [Mass/Vol]4103 pg/mLHigh0 - 450 pg/mLLewisgale Hospital MontgomeryBon [facility] HospitalCBC with Auto Differentialon 03-20-2025 Basophils (Bld) [#/Vol]0.05 10*3/uLLewisgale Hospital MontgomeryBasophils/100 WBC (Bld)1 %0 - 2 %[facility] MontgomeryEosinophils (Bld) [#/Vol]0.03 10*3/uLBon Secours University Hospitals Samaritan Medical CenterEosinophils/100 WBC (Bld)0 %Low1 - 4 %[facility] MontgomeryErythrocyte distribution width (RBC) [Ratio]15.9 %High11.8 - 14.4 %Bon SecProMedica Flower HospitalHematocrit (Bld) [Volume fraction]29.5 %Low36.3 - 47.1 %[facility] MontgomeryHemoglobin (Bld) [Mass/Vol]9.5 g/dLLow11.9 - 15.1 g/dLBon SecProMedica Flower HospitalImmature granulocytes (Bld) [#/Vol]0.03 10*3/uLBon Secours University Hospitals Samaritan Medical CenterImmature granulocytes/100 WBC (Bld)0 %0[facility] Interpretation and review of laboratory resultsAbnormalBon [facility] Lymphocytes/100 WBC (Bld)9 %Low24 - 43 %[facility] MontgomeryLymphocytes/100 WBC (Bld)0.68 %LowBon [facility] HospitalH (RBC) [Entitic mass]27.9 pg25.2 - 33.5 pgBon SecMagruder Memorial HospitalHC (RBC) [Mass/Vol]32.2 g/dL28.4 - 34.8 g/dLBon SecMagruder Memorial HospitalV (RBC) [Entitic vol]86.8 fL82.6 - 102.9 fLLewisgale Hospital MontgomeryMonocytes/100 WBC (Bld)6 %3 - 12 %[facility] Monocytes/100 WBC (Bld)0.42 %[facility] MontgomeryNeutrophils/100 WBC (Bld)84 %High36 - 65 %[facility] MontgomeryNucleated RBC/100 WBC (Bld) [Ratio]0 %0.0 per 100 WBCBon [facility] HealthPlatelet mean volume (Bld) [Entitic vol]10.3 fL8.1 - 13.5 fLHealthsouth Rehabilitation Hospital Of [facility] SecPointe [facility] HealthPlatelets (Bld) [#/Vol]225 10*3/uLBon SecPointe Coupee General Hospital HealthRBC (Bld) [#/Vol]3.4 10*6/uLLow3.95 - 5.11 m/uLBon SecProMedica Flower HospitalSegmented neutrophils/100 WBC (Bld)6.04 %Bon [facility] HospitalWBC other (Bld) [#/Vol]7.3Bon [facility] HospitalBon [facility] Community HospitalCB with Diffon [id number]. Basophil0.05 k/uLNormal0.00-0.20[facility] Comment on above:Performed By: #### BNP, CBC, BMP #### [facility] [address] [place] [address] [place] [address] [employer] Laborer: Jared Martinez.Imm.Granulocyte0.03 k/uLNormal0.00-0.30[facility] HospitalComment on above:Performed By: #### BNP, CBC, BMP #### [address] [place] [address] [employer] Laborer: Jared Martinez.Neutrophil (Seg)6.04 k/uLNormal1.50-8.10[facility] HospitalComment on above:Performed By: #### BNP, CBC, BMP #### [address] [place] [address] [employer] Laborer: Renan Huerta MDBasophils/100 WBC (Bld)1 %Normal0-2[facility] HospitalComment on above:Performed By: #### BNP, CBC, BMP #### [address] [place] [address] [employer] Laborer: Renan Huerta MDEosinophils (Bld) [#/Vol]0.03 10*3/uLNormal 0.00-0.44[facility] HospitalComment on above:Performed By: #### BNP, CBC, BMP #### [address] [place] [id number] [employer] Laborer: LUIS Martinezosinophils/100 WBC (Bld)0 %Low1-4[facility] HospitalComment on above:Performed By: #### BNP, CBC, BMP #### [address] [place] [address] [employer] Laborer: Renan Huerta MDErythrocyte distribution width (RBC) [Ratio]15.9 % High11.8-14.4[facility] HospitalComment on above:Performed By: #### BNP, CBC, BMP #### [address] [place] [address] [employer] Laborer: Renan Huerta MDHematocrit (Bld) [Volume fraction]29.5 %Low 36.3-47.1[facility] HospitalComment on above:Performed By: #### BNP, CBC, BMP #### [address] [place] [address] [employer] Laborer: Renan Huerta MDHemoglobin (Bld) [Mass/Vol]9.5 g/dLLow11.9-15.1 [facility] - AndersonComment on above:Performed By: #### BNP, CBC, BMP #### [address] [place] [address] [employer] Laborer: Renan Huerta MDImmature granulocytes/100 WBC (Bld)0 %Wmukca1Ckchx Tiffin HospitalComment on above:Performed By: #### BNP, CBC, BMP #### [address] [place] [address] [employer] Laborer: Renan Huerta MDLymphocytes (Bld) [#/Vol]0.68 10*3/uLLow1.10-3.70 [facility] AndersonComup health system on above:Performed By: #### BNP, CBC, BMP #### [address] [place] [address] [employer] Laborer: Renan Huerta MDLymphocytes/100 WBC (Bld)9 %Ojp35-70Hdhze Lubbock HospitalComment on above:Performed By: #### BNP, CBC, BMP #### [address] [place] [address] [employer] Laborer: SANDRA MartinezCH (RBC) [Entitic mass]27.9 czCipowt21.2-33.5 [facility] HospitalComment on above:Performed By: #### BNP, CBC, BMP #### [address] [place] [address] [employer] Laborer: SANDRA MartinezCHC (RBC) [Mass/Vol]32.2 g/nFMmuyji62.4-34.8[facility] - AndersonComment on above:Performed By: #### BNP, CBC, BMP #### [address] [place] [address] [employer] Laborer: SANDRA MartinezCV (RBC) [Entitic vol]86.8 nVPeweor36.6-102.9 [facility] - AndersonComment on above:Performed By: #### BNP, CBC, BMP #### [address] [place] [address] [employer] Laborer: SANDRA Martinezonocytes (Bld) [#/Vol]0.42 10*3/uLNormal0.10-1.20 [facility] - AndersonComment on above:Performed By: #### BNP, CBC, BMP #### [address] [place] [address] [employer] Laborer: SANDRA Martinezonocytes/100 WBC (Bld)6 %Normal3-12[facility] - AndersonComment on above:Performed By: #### BNP, CBC, BMP #### [address] [place], [place] [address] [employer] Laborer: Renan uHerta MDNeutrophil (Seg)84 %Exqf52-33KpcjwOur Lady Of Mercy Hospital - [facility] Comment on above:Performed By: #### BNP, CBC, BMP #### [address] [place] [address] [employer] Laborer: WILLARD Martinez Automated0.0 per 100 WBCNormal0.0[facility] - AndersonComment on above:Performed By: #### BNP, CBC, BMP #### [address] [place] [address] [employer] Laborer: Sal Martinez mean volume (Bld) [Entitic vol]10.3 fL Normal8.1-13.5[facility] - AndersonComment on above:Performed By: #### BNP, CBC, BMP #### [address] [place] [address] [employer] Laborer: Maggie Martinez (Bld) [#/Vol]225 10*3/mPDxykbs656-736 [facility] HospitalComment on above:Performed By: #### BNP, CBC, BMP #### [address] [place] [address] [employer] Laborer: ROLY Martinez (Bld) [#/Vol]3.40 10*6/uLLow3.95-5.11[facility] - AndersonComment on above:Performed By: #### BNP, CBC, BMP #### [address] [place] [address] [employer] Laborer: MANDO Martinez (Bld) [#/Vol]7.3 10*3/uLNormal3.5-11.3MChildren's Hospital for Rehabilitation HospitalComment on above:Performed By: #### BNP, CBC, BMP #### [address] [place], [place] [address] [employer] Laborer: Georgiana Martinez 66-15-9125Jvjgclx [Mass/Vol]3.5 g/dL3.5 - 5.2 g/dLBon Secours Mercy HealthAlbumin/Globulin [Mass ratio]1.4 {ratio}1.0 - 2.5[facility] HealthALP [Catalytic activity/Vol]59 U/L35 - 104 U/LBon Secours Mercy HealthALT [Catalytic activity/Vol]12 U/L10 - 35 U/LBon Secours Mercy HealthAnion gap [Moles/Vol]11 mmol/L9 - 16 mmol/LBon [facility]ours [facility] Health AST [Catalytic activity/Vol]27 U/L10 - 35 U/LBon Secours Mercy HealthBilirubin [Mass/Vol]0.6 mg/dL0.00 - 1.20 mg/dLBon Secours Mercy HealthCalcium [Mass/Vol] 8.4 mg/dLLow8.6 - 10.4 mg/dLBon Secours Mercy HealthChloride [Moles/Vol]106 mmol/L98 - 107 mmol/LBon Secours Mercy HealthCO2 [Moles/Vol]18 mmol/LLow20 - 31 mmol/LBon Secours Mercy HealthCreatinine [Mass/Vol]1.4 mg/dLHigh0.50 - 0.90 mg/dLBon Secours Mamay HealthEst, Glom Filt Lwib47Cgj- PINFBon Secours City Hospitaly HealthComment on above: These results are not intended [...] therapy that affects renal tubular secretion. Glucose [Mass/Vol]121 mg/cQTzfs12 - 99 mg/dLBon Secours Mercy HealthPotassium [Moles/Vol]4.4 mmol/L3.7 - 5.3 mmol/LBon Secours Mercy HealthProtein [Mass/Vol] 5.9 g/dLLow6.6 - 8.7 g/dLBon Secours Mercy HealthSodium [Moles/Vol]135 mmol/LLow 136 - 145 mmol/LBon Secours Mercy HealthUrea nitrogen [Mass/Vol]22 mg/dL8 - 23 mg/dLBon Secours Mercy HealthUrea nitrogen/Creatinine [Mass ratio]16 mg/mg9 - 20 Bon [facility] HospitalCOVID-19, Rapidon [id number]-CoV-2 (COVID-19) RdRp gene JOSE MARIA+probe Ql (Resp)Not detectedNot DetectedChildren's Hospital [facility] on above: Rapid NAAT: The specimen is [...] decisions. Methodology: Isothermal Nucleic Acid Amplification Specimen Description.NASOPHARYNGEAL SWABBon [facility] Metabolic Profon 48-26-9563Iletnmm [Mass/Vol]3.5 g/dLNormal 3.5-5.2[facility] HospitalComment on above:Performed By: #### BNP, CBC, BMP #### [facility] [address] [place] [address] [place] [address] [employer] Laborer: Renan Huerta MDAlbumin/Glob Ratio1.1Ioblgl6.0-2.5[facility] on above:Performed By: #### BNP, CBC, BMP #### [facility] [address] [place] [address] Ammunition [employer] Laborer: Gino Martinezline Phos59 U/TYpekhe82-948JhzgxKindred Hospital Dayton on above:Performed By: #### BNP, CBC, BMP #### [facility] [address] [place] [address] [place] [address] [employer] Laborer: Renan Huerta MDALT [Catalytic activity/Vol]12 U/ERzarfa71-26CrcjhOur Lady Of Mercy Hospital - AndersonComment on above:Performed By: #### BNP, CBC, BMP #### [address] [place] [address] [employer] Laborer: Renan Huerta MDAnion gap [Moles/Vol]11 mmol/LNormal9-16[facility] - AndersonComment on above:Performed By: #### BNP, CBC, BMP #### [address] [place] [address] [employer] Laborer: Renan Huerta MDAST [Catalytic activity/Vol]27 U/LSyrcbd54-36JrgmcOur Lady Of Mercy Hospital - AndersonComment on above:Performed By: #### BNP, CBC, BMP #### [address] [place], [place] [address]83 [employer] Laborer: Renan Huerta MDBilirubin [Mass/Vol]0.6 mg/dLNormal0.00-1.20[facility] - AndersonComment on above:Performed By: #### BNP, CBC, BMP #### [address] [place] [address] [employer] Laborer: Renan Huerta MDBUN/CRE Kimnp80Pqiozg4-29Mpjhc [facility] Comment on above:Performed By: #### BNP, CBC, BMP #### [address] [place] [address] [employer] Laborer: Renan Huerta MDCalcium [Mass/Vol]8.4 mg/dLLow8.6-10.4[facility] - AndersonComment on above:Performed By: #### BNP, CBC, BMP #### [address] [place], [place] [address] [employer] Laborer: Renan Huerta MDChloride [Moles/Vol]106 mmol/JXqbaws27-960Brfvm [facility] HospitalComment on above:Performed By: #### BNP CBC, BMP #### [address] [place], [place] [address]83 [employer] Laborer: TUAN MartinezO2 [Moles/Vol]18 mmol/PDak10-96IrstfOur Lady Of Mercy Hospital - AndersonComment on above:Performed By: #### BNP CBC, BMP #### [address] [place], [place] [address]83 [employer] Laborer: TUAN Martinezreatinine [Mass/Vol]1.4 mg/dLHigh0.50-0.90[facility] - AndersonComment on above:Performed By: #### CAILIN QUEZADA, BMP #### [address] [place] [address] Ammunition [employer] Laborer: Renan Huerta MDGFR/1.73 sq M.predicted among non-blacks MDRD (S/P/Bld) [Vol rate/Area]37 mL/min/{1.73_m2}Low>60[facility] - AndersonComment on above:Result Comment: These results are not intended for [...] or following therapy that affects renal tubular secretion.Performed By: #### PILAR CBC, BMP #### [address] [place] [address] Ammunition [employer] Laborer: Renan Huerta MDGlucose [Mass/Vol]121 mg/lSTrjq35-76JhsurFirelands Regional Medical Center South CampusComment on above:Performed By: #### BNP CBC, BMP #### [address] [place] [address] Ammunition Assembly Laborer: KAREEN Martinezotassium [Moles/Vol]4.4 mmol/LNormal3.7-5.3MFirelands Regional Medical Center South CampusComment on above:Performed By: #### BNP, CBC, BMP #### [address] [place], [place] [address] [employer] Laborer: KAREEN Martinezrotein [Mass/Vol]5.9 g/dLLow6.6-8.7[facility] - AndersonComment on above:Performed By: #### BNP, CBC, BMP #### [address] [place], [place] [address]483 [employer] Laborer: BURKE Martinezodium [Moles/Vol]135 mmol/UAgn888-433LrczuOur Lady Of Mercy Hospital - AndersonComment on above:Performed By: #### BNP, CBC, BMP #### [address] [place], [place] [address] [employer] Laborer: Renan Huerta MDUrea nitrogen [Mass/Vol]22 mg/dLNormal8-23[facility] - AndersonComment on above:Performed By: #### BNP, CBC, BMP #### [address] [place], [place] [address] Am[employer] Laborer: Renan Huerta MDSt. Vincent'S East 13-77-2636Auamtvisquxqia and review of laboratory resultsAbFaulkton Area Medical Center 52-40-7840OYC Coag (PPP) [Relative time]1.2 {INR}NormalOur Lady Of Mercy Hospital - AndersonComup health system on above:Result Comment: Therapeutic Range: Moderate Anticoagulant Intensity: INR = 2.0-3.0 High Anticoagulant Intensity: INR = 2.5-3.5Performed By: #### BNP, CBC, BMP #### [address] [place], [place] [address]83 [employer] Laborer: LIZETH Martinez Coag (PPP) [Time]15.9 sHigh12.0-15.0[facility] - AndersonComment on above:Performed By: #### BNP, CBC, BMP #### [address] [place] [address] [employer] Laborer: Anselmo Martinez XR Chest AP single viewon . No acute process. 2. Hyperinflated lungs. [facility] ALYSSA DUMONTEXAM: 1 VIEW(S) XRAY OF THE CHEST 03/20/2025 11:10:47 AM COMPARISON: None available. CLINICAL HISTORY: Shortness of breath. FINDINGS: LUNGS AND PLEURA: Hyperinflated lungs. No focal pulmonary opacity. No pulmonary edema. No pleural effusion. No pneumothorax. HEART AND MEDIASTINUM: Left pacemaker in place. Aortic stent noted. No acute abnormality of the cardiac and mediastinal silhouettes. BONES AND SOFT TISSUES: No acute osseous abnormality. [facility] Asif Ugarte MD - 03/20/2025 EXAM: 1 VIEW(S) XRAY [...] 1. No acute process. 2. Hyperinflated lungs. [facility] MontgomeryRadiology Study observation (narrative)[facility] MontgomeryPortsarasota memorial hospital - [facility] XR Chest AP single viewOrdered By: Asif Dimas on 03-20-2025 [facility] Work Phone: [phone]-RLVne 55-02-3323HMW Coag (PPP) [Relative time] 1.2 {INR}[facility] Hospitalment on above: Therapeutic Range: Moderate Anticoagulant Intensity: INR = 2.0-3.0 High Anticoagulant Intensity: INR = 2.5-3.5 Interpretation and review of laboratory resultsAbnoalLewisgale Hospital Montgomery PT Coag (PPP) [Time]15.9 sHighBon [facility] FYCC-YaK-0vg 91-03-6319ROZF-CoV-2 (COVID-19) RNA JOSE MARIA+probe Ql (Unsp spec)Not detectedNormalNOTDESouthview Medical CenterComment on above:Result Comment: Rapid NAAT: The specimen is NEGATIVE [...] patient management decisions. Methodology: Isothermal Nucleic Acid AmplificationPerformed By: #### COVRB #### [address] [place] [address] Ammunition Assembly Laborer: Niko Martinez 19-06-9393Ybnazuxitnkzlm and review of laboratory resultsAbnormalBon Martins Ferry Hospitalangus I.cardiac High sensitivity method [Mass/Vol]32 ng/LHigh0 - 14 ng/LBon [facility] Comment on above:High Sensitivity Troponin values cannot be compared with other Troponin methodologies.Bon Martins Ferry Hospitalangus, High Sens32 ng/LHigh 0-14[facility] on above:Result Comment: High Sensitivity Troponin values cannot be compared with other Troponin methodologies.Performed By: #### BNP, CBC, BMP #### [address] [place] [address] Ammunition Assembly Laborer: Juan Martinez I.cardiac High sensitivity method [Mass/Vol]44 ng/LHigh0 - 14 ng/LBon [facility] Community HospitalComment on above:High Sensitivity Troponin values cannot be compared with other Troponin methodologies.Troponin, High Sens44 ng/LHigh0-14[facility] AndersonComup health system on above:Result Comment: High Sensitivity Troponin values cannot be compared with other Troponin methodologies.Performed By: #### BNP, CBC, BMP #### [facility] [address] [place] [address] [employer] Laborer: LALITA Martinez CHEST PORTABLEon [id number] CHEST PORTABLE EXAM: 1 VIEW(S) XRAY OF [...] Signed by: Asif Dimas MD 03/20/25 Final resultNormUniversity Hospitals Ahuja Medical CenterXR TIBIA FIBULA LEFT (2 VIEWS)on [id number] TIBIA FIBULA LEFT (2 VIEWS)ADDENDUM: There is a single AP view taking [...] Milton Jones MD 03/20/25 Edited Result - FINALNormUniversity Hospitals Ahuja Medical CenterXR Tibia and Fibula - left 2 Viewson 48-63-2363Jfwzwowst bandages obscuring detail and limiting the exam. Within the limitations of the exam, no obvious acute bony abnormality can be seen. Recommend follow-up clinically and additional imaging, if indicated. Diffuse osteopenia with no obvious acute bony abnormality seen. [facility]ATEDEX[facility] 4 XRAY VIEWS OF THE LEFT TIBIA AND FIBULA 03/20/2025 3:34 pm COMPARISON: 06/14/2018 HISTORY: ORDERING SYSTEM PROVIDED HISTORY: Trauma TECHNOLOGIST PROVIDED HISTORY: Trauma FINDINGS: There is extensive overlying bandages obscuring detail throughout the lower leg. No obvious acute fracture or dislocation can be seen. The bones are osteopenic. There are vascular calcifications throughout the lower leg. The joint spaces are intact. [facility] Milton Yin MD - 03/20/2025 EXAMINATION: 4 XRAY VIEWS [...] with no obvious acute bony abnormality seen. [facility] MontgomeryRadiology Study observation (narrative)[facility] MontgomeryXR Tibia and Fibula - left 2 ViewsOrdered By: Milton Jones on 03-20-2025 [facility] Work Phone: Prot. Electroph, Blon [id number] Review: Reviewed by pathologist: Blanquita Graves M.D.[facility] Comment on above:Performed By: #### BNP, CBC, BMP #### [facility] [address] [place] [address] [employer] Laborer: Jo Martinez. Elect-InterpNormal electrophoretic pattern. NormalMercy Lubbock HospitalComment on above:Performed By: #### BNP, CBC, BMP #### [address] [place] [address] [employer]munition Assembly Laborer: LALITA Martinez Knee - right 1 or 2 Viewson [id number] Missouri Medical CenterImaging Result: AP and Lateral of right knee: [...] total knee revision arthroplasty with no prior comparisMcKenzie Regional Hospital HealthcareRadiology Study observation (narrative)[facility] HealthcareProt. Electroph, Blon [id number] [Mass/Vol]3.5 g/dLNormal3.2-5.2Mer[facility] HospitalComment on above:Performed By: #### BNP, CBC, BMP #### [address] [place] [address] Ammunition Assembly Laborer: Renan Huerta MDAlbumin, %58 %Rqxuuv83-13IzzonOur Lady Of [facility] Hospital - [facility] Comment on above:Performed By: #### BNP, CBC, BMP #### [address] [place] [address] Ammunition Assembly Laborer: Renan Huerta MDAZRGdrbi-3-huhjhpsxq8.3 g/dLNormal0.1-0.4[facility] - AndersonComment on above:Performed By: #### BNP, CBC, BMP #### [address] [place] [address] Ammunition Assembly Laborer: Renan Huerta MDARVKxygf-6-xudodwqpa,%4 %Normal3-5MerGlenbeigh Hospital HospitalComment on above:Performed By: #### BNP, CBC, BMP #### [address] [place] [address] Ammunition Assembly Laborer: Renan Huerta MDASGDlkea-8-xuvckqydy2.6 g/dLNormal0.5-0.9[facility] HospitalComment on above:Performed By: #### BNP, CBC, BMP #### [address] [place] [address] Ammunition Assembly Laborer: Renan Huerta MDAIYCjufs-2-avtvdzpll,%10 %Normal7-12[facility] HospitalComment on above:Performed By: #### BNP, CBC, BMP #### [address] [place], [place] [id number] Ammunition Assembly Laborer: Renan Huerta MDBeta-globulins0.7 g/dLNormal0.7-1.4[facility] HospitalComment on above:Performed By: #### BNP, CBC, BMP #### [address] [place] [address] Ammunition Assembly Laborer: Renan Huerta MDBeta-globulins,%12 %Normal8-13[facility] HospitalComment on above:Performed By: #### BNP, CBC, BMP #### [address] [place], [place] [id number] Ammunition Assembly Laborer: Renan Huerta MDGamma-globulins0.9 g/dLNormal0.5-1.5[facility] HospitalComment on above:Performed By: #### BNP, CBC, BMP #### [address] [place] [address] Ammunition Assembly Laborer: Renan Huerta MDGamma-globulins,%15 %Srcogh13-61Wpjgb [place] HospitalComment on above:Performed By: #### BNP, CBC, BMP #### [address] [place], [place] [id number] Ammunition Assembly Laborer: Renan Huerta MDTotal Prot. Sum6.0 g/dLLow6.3-8.2[facility] Hartford HospitalComment on above:Performed By: #### BNP, CBC, BMP #### [facility] [address] [place] [address] Ammunition Assembly Laborer: Myesha Martinez Prot. Sum,%99 %Nmetdf27-077Pkpih Hartford HospitalComment on above:Performed By: #### BNP, CBC, BMP #### [facility] [address] [place] [address] Ammunition Assembly Laborer: Renan Huerta [facility] with Auto Differentialon [id number] (Bld) [#/Vol]0.05 10*3/uLBon [facility] HospitalBasophils/100 WBC (Bld)1 %0 - 2 %[facility] MontgomeryEosinophils (Bld) [#/Vol]0.06 10*3/uLBon [facility] HospitalEosinophils/100 WBC (Bld)1 %1 - 4 %[facility] MontgomeryErythrocyte distribution width (RBC) [Ratio]16.5 %High11.8 - 14.4 %[facility] Hematocrit (Bld) [Volume fraction]30.1 %Low36.3 - 47.1 %[facility] Hemoglobin (Bld) [Mass/Vol]9.5 g/dLLow11.9 - 15.1 g/dLBon [facility] Immature granulocytes (Bld) [#/Vol]Bon [facility] HospitalImmature granulocytes/100 WBC (Bld)0 %0Bon [facility] HospitalInterpretation and review of laboratory resultsAbnormalBon [facility] HospitalLymphocytes/100 WBC (Bld)17 %Low24 - 43 %[facility] MontgomeryLymphocytes/100 WBC (Bld)1.03 %LowBon [facility] Valley HospitalH (RBC) [Entitic mass]28 pg25.2 - 33.5 pgBon [facility] Valley HospitalHC (RBC) [Mass/Vol]31.6 g/dL28.4 - 34.8 g/dLBon [facility] HospitalMCV (RBC) [Entitic vol]88.8 fL82.6 - 102.9 fLBon [facility] HospitalMonocytes/100 WBC (Bld)8 %3 - 12 %Bon [facility] HospitalMonocytes/100 WBC (Bld)0.51 %[facility] MontgomeryNeutrophils/100 WBC (Bld)73 %High36 - 65 %[facility] MontgomeryNucleated RBC/100 WBC (Bld) [Ratio]0 %0.0 per 100 WBCBon [facility] HospitalPlatelet mean volume (Bld) [Entitic vol]9.8 fL8.1 - 13.5 fLBon [facility] HospitalPlatelets (Bld) [#/Vol]303 10*3/uLBon [facility] HospitalRBC (Bld) [#/Vol]3.39 10*6/uLLow3.95 - 5.11 m/uLBon [facility] HospitalSegmented neutrophils/100 WBC (Bld)4.57 %Bon [facility] HospitalWBC other (Bld) [#/Vol] 6.2Bon SecHoward Young Medical CenterCBC with Diffon 02-16-2025 Abs. Basophil0.05 k/uLNormal0.00-0.20MerGlenbeigh Hospital HospitalComment on above: Performed By: #### CMPX, PT, CDP #### [address] [place] [address] Ammunition Assembly Laborer: Jared Martinez.Imm.Granulocyte<0.56Ocrpih1.00-0.30[facility] HospitalComment on above:Performed By: #### CMPX, PT, CDP #### [address] [place] [address] Ammunition Assembly Laborer: Jared Martinez.Neutrophil (Seg)4.57 k/uLNormal1.50-8.10[facility] - AndersonComment on above:Performed By: #### CMPX, PT, CDP #### [address] [place], [place] [address] Ammunition Assembly Laborer: Renan Huerta MDBasophils/100 WBC (Bld)1 %Normal0-2[facility] HospitalComment on above:Performed By: #### CMPX, PT, CDP #### [address] [place] [address] Ammunition Assembly Laborer: Renan Huerta MDEosinophils (Bld) [#/Vol]0.06 10*3/uLNormal 0.00-0.44[facility] HospitalComment on above:Performed By: #### CMPX, PT, CDP #### [address] [place] [address] Ammunition Assembly Laborer: Renan Huerta MDEosinophils/100 WBC (Bld)1 %Normal1-4[facility] HospitalComment on above:Performed By: #### CMPX, PT, CDP #### [address] [place], [place] [address] Ammunition Assembly Laborer: Renan Huerta MDErythrocyte distribution width (RBC) [Ratio]16.5 % High11.8-14.4[facility] - AndersonComment on above:Performed By: #### CMPX, PT, CDP #### [address] [place] [address] Ammunition Assembly Laborer: Renan Huerta MDHematocrit (Bld) [Volume fraction]30.1 %Low 36.3-47.1Mohiohealth o'bleness hospitaly [place] HospitalComment on above:Performed By: #### CMPX, PT, CDP #### [address] [place] [address] Ammunition Assembly Laborer: Renan Huerta MDHemoglobin (Bld) [Mass/Vol]9.5 g/dLLow11.9-15.1 [facility] HospitalComment on above:Performed By: #### CMPX, PT, CDP #### [address] [place], [place] [address] Ammunition Assembly Laborer: Cinthya Martinezmature granulocytes/100 WBC (Bld)0 %Hwogfz1GcnwxOur Lady Of Mercy Hospital - AndersonComment on above:Performed By: #### CMPX, PT, CDP #### [address] [place], [place] [address]683 Ammunition Assembly Laborer: Renan Huerta MDLymphocytes (Bld) [#/Vol]1.03 10*3/uLLow1.10-3.70 [facility] - AndersonComment on above:Performed By: #### CMPX, PT, CDP #### [address] [place], [place] [address]83 Ammunition Assembly Laborer: Mary Martinezmphocytes/100 WBC (Bld)17 %Rah17-84LplfrOur Lady Of Mercy Hospital - AndersonComment on above:Performed By: #### CMPX, PT, CDP #### [address] [place], [place] 58[address]783 Ammunition Assembly Laborer: SANDRA MartinezCH (RBC) [Entitic mass]28.0 ebWiiden60.2-33.5 [facility] HospitalComment on above:Performed By: #### CMPX, PT, CDP #### [address] [place], [place] [address]283 Ammunition Assembly Laborer: AMINAH MartinezC (RBC) [Mass/Vol]31.6 g/lUVbgbwf60.4-34.8[facility] - AndersonComment on above:Performed By: #### CMPX, PT, CDP #### [address] [place] [address] Ammunition Assembly Laborer: SANDRA MartinezCV (RBC) [Entitic vol]88.8 lMAaloky71.6-102.9 [facility] HospitalComment on above:Performed By: #### CMPX, PT, CDP #### [address] [place] [address] Ammunition Assembly Laborer: SANDRA Martinezonocytes (Bld) [#/Vol]0.51 10*3/uLNormal0.10-1.20 [facility] - AndersonComment on above:Performed By: #### CMPX, PT, CDP #### [address] [place] [address] Ammunition Assembly Laborer: SANDRA Martinezonocytes/100 WBC (Bld)8 %Normal3-12[facility] - AndersonComment on above:Performed By: #### CMPX, PT, CDP #### [address] [place] [address] Ammunition Assembly Laborer: Becca Martinezophil (Seg)73 %Oono84-21HkmqvOur Lady Of Mercy Hospital - Anderson Comment on above:Performed By: #### CMPX, PT, CDP #### [address] [place], [place] [address]83 Ammunition Assembly Laborer: Renan Huerta MDNRBC Automated0.0 per 100 WBCNormal0.0[facility] - AndersonComment on above:Performed By: #### CMPX, PT, CDP #### [address] [place] [address] Ammunition Assembly Laborer: Sal Martinez mean volume (Bld) [Entitic vol]9.8 fL Normal8.1-13.5[facility] - AndersonComment on above:Performed By: #### CMPX, PT, CDP #### [address] [place], [place] [phone] Ammunition Assembly Laborer: KAREEN Martinezlatelets (Bld) [#/Vol]303 10*3/sGGqgtdz036-690 [facility] HospitalComment on above:Performed By: #### CMPX, PT, CDP #### [address] [place] [address] Ammunition Assembly Laborer: ROLY Martinez ([facility]) [#/Vol]3.39 10*6/uLLow3.95-5.11MerGlenbeigh Hospital HospitalComment on above:Performed By: #### CMPX, PT, CDP #### [address] [place], [place] [address]83 Ammunition Assembly Laborer: MANDO Martinez ([facility]) [#/Vol]6.2 10*3/uLNormal3.5-11.3Mohiohealth o'bleness hospitaly [place] HospitalComment on above:Performed By: #### CMPX, PT, CDP #### [address] [place], [place] [address]83 Ammunition Assembly Laborer: Renan Huerta [facility] – TULSAomp Metabolic Profon 14-95-3309Abqybhu [Mass/Vol] 3.8 g/dLNormal3.5-5.2MChildren's Hospital for Rehabilitation HospitalComment on above:Performed By: #### CMPX, PT, CDP #### [address] [place] [address] Ammunition Assembly Laborer: Renan Huerta MDAlbumin/Glob Ratio1.9Dnutit3.0-2.5MerGlenbeigh Hospital HospitalComment on above:Performed By: #### CMPX, PT, CDP #### [address] [place], [place] [address]783 Ammunition Assembly Laborer: Renan Huerta MDAlkaline Phos68 U/EFbnxqh45-544Oozof Tiffin HospitalComment on above:Performed By: #### CMPX, PT, CDP #### [address] [place], [place] [address]83 Ammunition Assembly Laborer: Renan Huerta MDALT [Catalytic activity/Vol]12 U/CZybbwj25-89Ybexv [facility] HospitalComment on above:Performed By: #### CMPX, PT, CDP #### [address] [place] [address] Ammunition Assembly Laborer: Germain Martinez gap [Moles/Vol]9 mmol/LNormal9-16[facility] - AndersonComment on above:Performed By: #### CMPX, PT, CDP #### [address] [place] [address] Ammunition Assembly Laborer: Renan Huerta MDAST [Catalytic activity/Vol]24 U/YDrxepi00-32RopewOur Lady Of Mercy Hospital - AndersonComment on above:Performed By: #### CMPX, PT, CDP #### [address] [place] [address] Ammunition Assembly Laborer: Renan Huerta MDBilirubin [Mass/Vol]0.5 mg/dLNormal0.00-1.20[facility] - AndersonComment on above:Performed By: #### CMPX, PT, CDP #### [address] [place] [address] Ammunition Assembly Laborer: Renan Huerta MDBUN/CRE Qaldt21Cakmas2-16[facility] Comment on above:Performed By: #### CMPX, PT, CDP #### [address] [place] [address] Ammunition Assembly Laborer: TUAN Martinezalcium [Mass/Vol]8.5 mg/dLLow8.6-10.4[facility] - AndersonComment on above:Performed By: #### CMPX, PT, CDP #### [address] [place] [address] Ammunition Assembly Laborer: TUAN Martinezhloride [Moles/Vol]108 mmol/CFcll60-625LwisaOur Lady Of Mercy Hospital - AndersonComment on above:Performed By: #### CMPX, PT, CDP #### [facility] [address] [place] [address] Dr[address] [place], [place] [address]83 Ammunition Assembly Laborer: Renan Huerta MDCO2 [Moles/Vol]22 mmol/YAddthj98-06EyzdkOur Lady Of Mercy Hospital - AndersonComment on above:Performed By: #### VIDYAX PT, CDP #### [address] [place] [address] Ammunition Assembly Laborer: TUAN Martinezreatinine [Mass/Vol]1.1 mg/dLHigh0.50-0.90[facility] - AndersonComment on above:Performed By: #### CMPX, PT, CDP #### [address] [place] [address] Ammunition Assembly Laborer: Renan Huerta MDGFR/1.73 sq M.predicted among non-blacks MDRD (S/P/Bld) [Vol rate/Area]48 mL/min/{1.73_m2}Low>60[facility] - AndersonComment on above:Result Comment: These results are not intended for [...] or following therapy that affects renal tubular secretion.Performed By: #### STEPHIE, PT, CDP #### [address] [place] [address] Ammunition Assembly Laborer: Renan Huerta MDGlucose [Mass/Vol]99 mg/xTPprioj62-23Jgsnw Hartford HospitalComment on above:Performed By: #### VIDYAX, PT, CDP #### [address] [place] [address] Ammunition Assembly Laborer: KAREEN Martinezotassium [Moles/Vol]3.5 mmol/LLow3.7-5.3MFirelands Regional Medical Center South CampusComment on above:Performed By: #### VIDYAX, PT, CDP #### [address] [place] [address] Ammunition Assembly Laborer: KAREEN Martinezrotein [Mass/Vol]6.4 g/dLLow6.6-8.7[facility] - AndersonComment on above:Performed By: #### CMPX, PT, CDP #### [address] [place], [place] [address]83 Ammunition Assembly Laborer: BURKE Martinezodium [Moles/Vol]139 mmol/FBzpldi164-933PrmhjOur Lady Of Mercy Hospital - AndersonComment on above:Performed By: #### CMPX, PT, CDP #### [address] [place] [address] Ammunition Assembly Laborer: Renan Huerta MDUrea nitrogen [Mass/Vol]22 mg/dLNormal8-23[facility] - AndersonComment on above:Performed By: #### CMPX, PT, CDP #### [address] [place], [facility] Ammunition Assembly Laborer: TUAN Martinezomprehensive Metabolic Panelon [id number] [Mass/Vol]3.8 g/dL3.5 - 5.2 g/dLBon [facility] HospitalAlbumin/Globulin [Mass ratio]1.5 {ratio}1.0 - 2.5Bon [facility] HealthALP [Catalytic activity/Vol]68 U/L35 - 104 U/LBon [facility] HealthALT [Catalytic activity/Vol]12 U/L10 - 35 U/LBon [facility] HealthAnion gap [Moles/Vol]9 mmol/L9 - 16 mmol/LBon [facility]Po[facility] HealthAST [Catalytic activity/Vol]24 U/L10 - 35 U/LBon [facility] HealthBilirubin [Mass/Vol]0.5 mg/dL0.00 - 1.20 mg/dLBon [facility] Calcium [Mass/Vol]8.5 mg/dLLow8.6 - 10.4 mg/dLBon [facility] Instituteours [facility] HealthChloride [Moles/Vol]108 mmol/LHigh98 - 107 mmol/LBon [facility] HospitalCO2 [Moles/Vol] 22 mmol/L20 - 31 mmol/LBon [facility] HospitalCreatinine [Mass/Vol]1.1 mg/dL High0.50 - 0.90 mg/dLBon [facility] HospitalEst, Glom Filt Doys27Vzq- PINFBon [facility] on above: These results are not intended [...] therapy that affects renal tubular secretion. Glucose [Mass/Vol]99 mg/dL74 - 99 mg/dLBon [facility] HospitalInterpretation and review of laboratory resultsAbnormalLewisgale Hospital MontgomeryPotassium [Moles/Vol]3.5 mmol/LLow3.7 - 5.3 mmol/LBon [facility] HospitalProtein [Mass/Vol]6.4 g/dLLow6.6 - 8.7 g/dLBon [facility] HospitalSodium [Moles/Vol]139 mmol/L136 - 145 mmol/LBon [facility] HospitalUrea nitrogen [Mass/Vol]22 mg/dL8 - 23 mg/dLBon [facility] HospitalUrea nitrogen/Creatinine [Mass ratio]20 mg/mg 9 - 20Bon [facility] HospitalFerritinon 02-16-2025 Ferritin [Mass/Vol]63 ng/mLRiverside Shore Memorial Hospitalment on above:No reference range established for this age/gender.Ferritin [Mass/Vol]63 ng/mLNormalOur Lady Of Mercy Hospital - AndersonComup health system on above:Result Comment: No reference range established for this age/gender.Performed By: #### CMPX, PT, CDP #### [facility] [address] [place] [address] Ammunition Assembly Laborer: Renan Huerta MDFree [place] + Lambdaon [id number] [place] Lt Nxrdfe52.2 mg/LHigh<20.7[facility] - AndersonComment on above:Result Comment: Performed using Diazyme reagent on Sharath Marilyn Pro. Results obtained with different assay methods cannot be used interchangeably.Performed By: #### STEPHIE PT, CDP #### [address] [place] [address] Ammunition Assembly Laborer: Obdulia Martinez [place]/Lambda Rat1.20Xhjwsc7.22-1.74[facility] - AndersonComment on above:Performed By: #### STEPHIE PT, CDP #### [address] [place] [address] Ammunition Assembly Laborer: Obdulia Martinez Lambda Lt Kkiiaw44.1 mg/LHigh4.2-27.7MerRockville General HospitalComment on above:Result Comment: Performed using Diazyme reagent on Sharath Marilyn Pro. Results obtained with different assay methods cannot be used interchangeably.Performed By: #### STEPHIE PT, CDP #### [address] [place] [address] Ammunition Assembly Laborer: Renan Huerta MDImmunoglobulin Panel (IgG, IgA, IgM)on 02-16-2025 IgA [Mass/Vol]311 mg/dL70 - 400 mg/dLBon [facility] HospitalIgG [Mass/Vol]1046 mg/dL700 - 1600 mg/dLBon [facility] HospitalIgM [Mass/Vol]54 mg/dL40 - 230 mg/dLBon [facility] HospitalImmunoglobulinson 21-97-6846EcQ [Mass/Vol]311 mg/dL Wygbhp06-480VpbfgOur Lady Of Mercy Hospital - AndersonComment on above:Performed By: #### STEPHIE PT, CDP #### [address] [place] [address] Ammunition Assembly Laborer: Renan Huerta MDIgG [Mass/Vol]1046 mg/vKQvxoyy576-3181Fuomn Tiffin HospitalComment on above:Performed By: #### STEPHIE PT, CDP #### [address] [place], [place] [address]83 Ammunition Assembly Laborer: Renan Huerta MDIgM [Mass/Vol]54 mg/zJSeknzb87-710Vqmih Tiffin HospitalComment on above:Performed By: #### CMPX, PT, CDP #### [address] [place], [place] [address]383 Ammunition Assembly Laborer: Manfred Martinez Binding Cap.on 02-16-2025% Fe Uesirfrjyg83 % Nbm83-92CffioOur Lady Of Mercy Hospital - AndersonComment on above:Performed By: #### CMPX, PT, CDP #### [address] [place], [place] [address]83 Ammunition Assembly Laborer: Manfred Martinez [Mass/Vol]23 ug/qLKja54-564QtscyOur Lady Of Mercy Hospital - AndersonComment on above:Performed By: #### CMPX, PT, CDP #### [address] [place], [place] [address]483 Ammunition Assembly Laborer: Renan Huerta MDTotal Fe Binding Iso454 ug/sNHyy169-306EsnaoOur Lady Of Mercy Hospital - AndersonComment on above:Performed By: #### CMPX, PT, CDP #### [address] [place], [place] [address]83 Ammunition Assembly Laborer: Renan Huerta MDUnbound Fe Bind Xam588 ug/hYBgmnzs853-149Fstvp [facility]iffin HospitalComment on above:Performed By: #### CMPX, PT, CDP #### [address] [place], [place] [address]483 Ammunition Assembly Laborer: Manfred Martinez and TIBEdison [id number] and review of laboratory resultsAbnormalBon Secours University Hospitals Samaritan Medical CenterIron [Mass/Vol]23 ug/dLLow37 - 145 ug/dLBon Secours University Hospitals Samaritan Medical CenterIron binding capacity [Mass/Vol] 222 ug/bHPtn707 - 450 ug/dLBon Secours University Hospitals Samaritan Medical CenterIron saturation [Mass fraction]10 %Low20 - 55 %[facility]ale Hospital MontgomeryUIBC199 ug/dL112 - 347 ug/dLBon [facility] HospitalKappa/Lambda Quantitative Free Light Chains, Serumon 11-52-1382Iend [place]/Lambda Ratio1.610.22 - 1.74[facility] Immunoglobulin light chains.kappa.free (S) [Mass/Vol]71.2 mg/LHighNINF - 20.7 mg/LBon [facility] on above:Performed using Diazyme reagent on Sharath Marilyn Pro. Results obtained with different assay methods cannot be used interchangeably. Immunoglobulin light chains.lambda.free [Mass/Vol]44.1 mg/LHigh4.2 - 27.7 mg/L [facility] on above:Performed using Diazyme reagent on Sharath Marilyn Pro. Results obtained with different assay methods cannot be used interchangeably. Interpretation and review of laboratory resultsAbnormalRiverside [facility] Hospital CBC WITH DIFFon 38-46-9542Kjftithho/100 WBC (Bld)1 %0 - 2 %[facility] CenterEosinophils/100 WBC (Bld)1 %1 - 4 %[facility] Erythrocyte distribution width (RBC) [Ratio]16.5 %High11.8 - 14.4 %[facility] CenterHematocrit (Bld) [Volume fraction]30.1 %Low36.3 - 47.1 %[facility] CenterHemoglobin (Bld) [Mass/Vol]9.5 g/dLLow11.9 - 15.1 g/dLWestern [facility] Medical Center Immature granulocytes/100 WBC (Bld)0 %0[facility] CenterInterpretation and review of laboratory resultsAbnoLancaster Rehabilitation HospitalLymphocytes/100 WBC (Bld)17 %Low24 - 43 %[facility] CenterMCH (RBC) [Entitic mass]28 pg25.2 - 33.5 pgWestern [facility] Medical Center MCHC (RBC) [Mass/Vol]31.6 g/dL28.4 - 34.8 g/dLWestern Missouri Medical CenterMCV (RBC) [Entitic vol]88.8 fL82.6 - 102.9 fLSt. Luke's HospitalPT ABS. BASOPHIL0.05[facility] Medical CenterPT ABS. EOSINOPHIL0.06NOTX HealthcarePT ABS. LYMPH1.03LowNOPhelps HealthPT ABS. MONOCYTE0.51NOPhelps HealthPT ABS.IMM.GRANULOCYTE<0.03NOPhelps HealthPT ABS.NEUTROPHIL (SEG)4.57NOPhelps HealthPT NRBC GHOSWISUS52.0 per 100 WBCNOPhelps HealthPT PLATELET BELFA406IFZDPhelps HealthPT WBC COUNT6.2NOMS Healthcare Monocytes/100 WBC (Bld)8 %3 - 12 %NOM HealthcarePlatelet mean volume (Bld) [Entitic vol]9.8 fL8.1 - 13.5 fLNOSaint Luke's North Hospital–SmithvilleRBC (Bld) [#/Vol]3.39 10*6/uLLow 3.95 - 5.11 m/uLWestern Missouri Medical CenterSegmented neutrophils/100 WBC (Bld)73 %High36 - 65 %[facility] HealthcareOriginal Ordering Provider: RHODA ROCHAMUSC Health Chester Medical CenterNo Panel Informationon 01-42-5250Zmc [facility] Community HospitalProt. Electroph, Blon 53-76-3256Kvsnlck [Mass/Vol]6.0 g/dLLow6.6-8.7[facility] - AndersonComment on above:Performed By: #### BNP, CBC, BMP #### [facility] [address] [place] [address] Ammunition Assembly Laborer: REYNA Martinez CBC WITH AUTO DIFFon 65-30-2865Qcucpubtxpf distribution width (RBC) [Ratio]16.4 %High11.8 - 14.4 %NOM HealthcareHematocrit (Bld) [Volume fraction]30.5 %Low36.3 - 47.1 %NOM HealthcareHemoglobin (Bld) [Mass/Vol]9.5 g/dLLow11.9 - 15.1 g/dLPRIMARY CHILDREN'S [facility]OS[facility]ITAL HealthcareInterpretation and review of laboratory resultsAbnormalNODoctors Hospital of SpringfieldH (RBC) [Entitic mass]28 pg25.2 - 33.5 pgJefferson Memorial HospitalHC (RBC) [Mass/Vol]31.1 g/dL28.4 - 34.8 g/dLJefferson Memorial HospitalV (RBC) [Entitic vol]90 fL82.6 - 102.9 fLSt. Luke's HospitalPT NRBC FNHOKCION59.0 per 100 WBCSt. Luke's HospitalPT PLATELET [id number] Missouri Medical Center MHPT WBC COUNT6.7NOSaint Luke's North Hospital–SmithvillePlatelet mean volume (Bld) [Entitic vol]9.9 fL 8.1 - 13.5 fLWestern Missouri Medical CenterRBC (Bld) [#/Vol]3.39 10*6/uLLow3.95 - 5.11 m/[facility] HospitalOriginal Ordering Provider: TONI TINEOMUSC Health [facility] CBCon [id number] distribution width (RBC) [Ratio]16.4 %High11.8 - 14.4 %Bon [facility] HospitalHematocrit (Bld) [Volume fraction]30.5 %Low36.3 - 47.1 %[facility] Hospital MontgomeryHemoglobin (Bld) [Mass/Vol]9.5 g/dLLow11.9 - 15.1 g/dLBon [facility] HospitalInterpretation and review of laboratory results AbnormalBon [facility] Valley HospitalH (RBC) [Entitic mass]28 pg25.2 - 33.5 pgBon [facility] Bl[facility] Valley HospitalHC (RBC) [Mass/Vol]31.1 g/dL28.4 - 34.8 g/dLBon [facility] Blanchard Valley HospitalV (RBC) [Entitic vol]90 fL82.6 - 102.9 fLLewisgale Hospital Montgomery Nucleated RBC/100 WBC (Bld) [Ratio]0 %0.0 per 100 WBCLewisgale Hospital Montgomery Platelet mean volume (Bld) [Entitic vol]9.9 fL8.1 - 13.5 fLLewisgale Hospital MontgomeryPlatelets (Bld) [#/Vol]321 10*3/uLBon [facility] HospitalRBC (Bld) [#/Vol]3.39 10*6/uLLow3.95 - 5.11 m/[facility] Medical CenterWBC other (Bld) [#/Vol]6.7Bon [facility] HospitalErythrocyte distribution width (RBC) [Ratio]16.4 %High11.8-14.4[facility] - AndersonComment on above:Performed By: #### BNP, CBC, BMP #### [address] [place] [address] Ammunition [employer] Laborer: Renan Huerta MDHematocrit (Bld) [Volume fraction]30.5 %Low 36.3-47.1MChildren's Hospital for Rehabilitation HospitalComment on above:Performed By: #### BNP, CBC, BMP #### [address] [place], [place] [address] Ammunition Assembly Laborer: Renan Huerta MDHemoglobin (Bld) [Mass/Vol]9.5 g/dLLow11.9-15.1 [facility] HospitalComment on above:Performed By: #### BNP, CBC, BMP #### [address] [place] [id number] Ammunition Assembly Laborer: SANDRA MartinezCH (RBC) [Entitic mass]28.0 wbLgnepp04.2-33.5 [facility] HospitalComment on above:Performed By: #### BNP, CBC, BMP #### [address] [place], [facility] Ammunition Assembly Laborer: AMINAH MartinezC (RBC) [Mass/Vol]31.1 g/zSKqcgzc68.4-34.8[facility] - AndersonComment on above:Performed By: #### BNP, CBC, BMP #### [address] [place], [facility] Ammunition Assembly Laborer: SANDRA MartinezCV (RBC) [Entitic vol]90.0 tBSvomhd57.6-102.9 [facility] HospitalComment on above:Performed By: #### BNP, CBC, BMP #### [address] [place] [address] Ammunition Assembly Laborer: Renan Huerta MDNRBC Automated0.0 per 100 WBCNormal0.0[facility] HospitalComment on above:Performed By: #### BNP, CBC, BMP #### [address] [place] [address] Ammunition Assembly Laborer: Sal Martinez mean volume (Bld) [Entitic vol]9.9 fL Normal8.1-13.5[facility] - AndersonComment on above:Performed By: #### BNP, CBC, BMP #### [address] [place] [address] Ammunition Assembly Laborer: Maggie Martinez (Bld) [#/Vol]321 10*3/qFVefsxc573-234 [facility] - AndersonComment on above:Performed By: #### BNP, CBC, BMP #### [address] [place] [address] Ammunition Assembly Laborer: ROLY Martinez (Bld) [#/Vol]3.39 10*6/uLLow3.95-5.11[facility] - AndersonComment on above:Performed By: #### BNP, CBC, BMP #### [address] [place] [address] Ammunition Assembly Laborer: MANDO Martinez (Bld) [#/Vol]6.7 10*3/uLNormal3.5-11.3MFirelands Regional Medical Center South CampusComment on above:Performed By: #### BNP, CBC, BMP #### [address] [place] [address] Ammunition Assembly Laborer: REYNA Martinez HEMOGLOBINon 02-93-0065Mwroiysmph (Bld) [Mass/Vol]9.5 g/dLLow12.0 - 16.0 g/dLNOTX HealthcareInterpretation and review of laboratory resultsAbnormalNOTX HealthcareCLINISYNCNOMS HealthcareCT Lumbar spine WO contraston 06-33-8896IOJX HealthcareRadiology Study observation (narrative)NOMS HealthcareCT Pelvis bones WO contraston 41-68-9291PKWL HealthcareRadiology Study observation (narrative)NOMS HealthcareCT SPINE CERVICAL W/O CONTRASTon 02-26-1241IDHB HealthcareRadiology Study observation (narrative)NOMS HealthcareRT PULMONARY FUNCTION TESTon 90-30-9487[address] [address] Respiratory Report Signed Patient: LEYLA LAMBERT MR#: [id number] : 1940 Acct:[id number] Age/Sex: 84 / F ADM Date: 01/24/25 Loc: CARD Attending Dr: Douglas Will M.D. Ordering Physician: Douglas Will M.D. Date of Service: 01/24/25 Procedure(s): RT pulmonary function test Accession Number(s): [id number] cc: [facility] Test Date: 2025-01-24 Pat Name: LEYLA LAMBERT Department: Room: - Gender: Female Welder Operator: Frederick Gallegos RRT : 1940 Requested By: DOUGLAS WILL Order Number: [id number] Reading MD: Mansoor Maldonado Interpretive Statements Pulmonary [...] Signed By: 01/24/25 1648 DD/ 0841 TD/TT: Relationship Mgr:TBHRadiology, Radiologist, - 01/24/2025 [place] [address] Respiratory Report Signed Patient: LEYLA LAMBERT MR#: [id number] : 1940 Acct:[id number] Age/Sex: 84 / F ADM Date: 01/24/25 Loc: CARD Attending Dr: Douglas Will M.D. Ordering Physician: Douglas Will M.D. Date of Service: 01/24/25 Procedure(s): RT pulmonary function test Accession Number(s): [id number] cc: [facility] Test Date: 2025-01-24 Pat Name: LEYLA LAMBERT Department: Room: - Gender: Female Welder Operator: Frederick Gallegos RRT : 1940 Requested By: DOUGLAS WILL Order Number: [id number] Reading MD: Mansoor Maldonado Interpretive Statements Pulmonary [...] Signed By: 01/24/25 1648 DD/ 0841 TD/TT: Relationship Mgr: NIKOLAS HealthcareRadiology Study observation (narrative)NOM HealthcareRT PULMONARY FUNCTION TESTOrdered By: Radiologist Radiology on 82-04-6480[facility] Work Phone: XR Elbow - right 3 Viewson 94-67-4591OFSZWestern [facility] Radiology Study observation (narrative)NOMS HealthcareXR Elbow - right 3 Views Ordered By: Marie Ha on 82-39-1187MIOO HealthcareRadiology Study observation (narrative)NOMS HealthcareXR Shoulder - right 2 Viewson 86-80-1400CREI HealthcareRadiology Study observation (narrative)NOM HealthcareCBC W Auto Differential panel (Bld)on 70-26-2007OMAFOMWC BASOPHIL0 10*3/uL0.0 - 0.2 10*3/uL NOMS HealthcareBasophils/100 WBC (Bld)0.5 %NOM HealthcareDIFFERENTIAL TYPE AUTOMATED DIFFERENTIALNOTX HealthcareComment on above: PERFORMED AT [facility] [address],[place] [address] Eosinophils (Bld) [#/Vol]0 10*3/uL0.0 - 0.4 10*3/uLNOTX Healthcare Eosinophils/100 WBC (Bld)0.5 %NOMCass Medical CenterErythrocyte distribution width (RBC) [Ratio]16.2 %High11.5 - 15 %NOM HealthcareHematocrit (Bld) [Volume fraction]28.4 %Low35 - 47 %NOM HealthcareHemoglobin (Bld) [Mass/Vol]9.5 g/dLLow 11.7 - 15.5 g/dLPRIMARY CHILDREN'S [facility] HealthcareInterpretation and review of laboratory results AbnormalNOTX HealthcareLymphocytes (Bld) [#/Vol]0.8 10*3/uLLow1.0 - 3.5 10*3/uL NOM HealthcareLymphocytes/100 WBC (Bld)10.9 %[facility] CenterMCH (RBC) [Entitic mass]28.1 pg27 - 34 pgNOSaint Luke's North Hospital–SmithvilleMCHC (RBC) [Mass/Vol]33.4 g/dL32 - 36 g/dL NOMCass Medical CenterMCV (RBC) [Entitic vol]84 fL80 - 100 fLNOTX HealthcareMonocytes (Bld) [#/Vol]0.5 10*3/uL0.0 - 0.9 10*3/uLNOTX HealthcareMonocytes/100 WBC (Bld) 6.8 %NOMS HealthcareNeutrophils (Bld) [#/Vol]5.8 10*3/uL1.5 - 6.6 10*3/uLNOMS HealthcareNeutrophils/100 WBC (Bld)81.3 %NOMS HealthcarePlatelet mean volume (Bld) [Entitic vol]8.5 fL7 - 12 fLNOTX HealthcarePlatelets (Bld) [#/Vol]338 10*3/uLNOTX HealthcareRBC (Bld) [#/Vol]3.37 10*6/uLLowNOMS HealthcareWBC corrected for nucl RBC Auto (Bld) [#/Vol]7.2NOMS [facility] CherawCBC WITH AUTO DIFFERENTIALon 54-93-7831SEXNSRAFM ABSOLUTE COUNT (10*3/UL) BY AUTOMATED COUNT0.0 10*3/uLNormal0.0-0.2[facility], Centinela CampusComment on above:Performed By: #### 08347-3 #### [facility] ([id number]) [address] [place] [address] 14786 #### CBCA, HA1C, CMP, #### [facility] ([id number]) [address] [place] [address], [address] [address]QYRICJCZK RELATIVE PERCENT BY AUTOMATED COUNT0.5 %Normal [facility] Medical CenterComment on above:Performed By: #### 73536-4 #### [facility] ([id number]) [address] [place] [address] 32544 #### CBCA, HA1C, CMP, 56695-0 #### [facility] ([id number]) [address] [place] [address], [address] [place] [address]TAKNXVFSLAN DIFFERENTIAL TYPEAUTOMATED DIFFERENTIALNormal [facility] Medical CenterComment on above:Performed By: #### 93686-5 #### [facility] ([id number]) [address] [place] [address] 72879 #### CBCA, HA1C, CMP, 48983-0 #### [facility] ([id number]) [address] [facility], [address] [place], [place] [address]Wbcikgpgeqt (Bld) [#/Vol]0.0 10*3/uLNormal0.0-0.4ProPermian Regional Medical CenterComment on above:Performed By: #### 66216-8 #### [facility] ([id number]) [address] [place] [address] 46399 #### CBCA, HA1C, CMP, 18715-4 #### [facility] ([id number]) [address] [place] [address], [address] [place] [address] 14010ZFLCPUQHBOP RELATIVE PERCENT BY AUTOMATED COUNT0.5 %Normal ProMPioneers Memorial HospitalComment on above:Performed By: #### 38027-6 #### [facility] ([id number]) [address] [place] [address] 26497 #### SHEFALI, HA1C, CMP, 35934-6 #### [facility] ([id number]) [address] [place] [address], [address] [place] [address]Zzzkrgltywh distribution width (RBC) [Ratio]16.2 %High11.5-15 [facility] Medical CenterComment on above:Performed By: #### 43279-4 #### [facility] ([id number]) [address] [place] [address] 61666 #### CBCA, HA1C, CMP, 17140-1 #### [facility] ([id number]) [address] [facility] [place], [place] [address]Gybhggqabf (Bld) [Volume fraction]28.4 %Cik01-97IzkGluyppPermian Regional Medical CenterComment on above:Performed By: #### 39454-2 #### [facility] ([id number]) [address] [place] [address] 58902 #### CBCA, HA1C, CMP, #### [facility] ([id number]) [address], [address] [place], [place] [address]Aheqighotl (Bld) [Mass/Vol]9.5 g/dLLow11.7-15.5POhioHealth Van Wert HospitalComment on above:Performed By: #### 60353-9 #### [facility] ([id number]) [address] [place] [address] 76381 #### CBCA, HA1C, CMP, #### [facility] ([id number]) [address], [address] [place], [place] [address]QZJQBYIPOWZ ABSOLUTE COUNT (10*3/UL) BY AUTOMATED COUNT0.8 10*3/uLLow1.0-3.5POhioHealth Van Wert HospitalComup health system on above:Performed By: #### 91182-9 #### [facility] ([id number]) [address] [place] [address] 74773 #### CBCA, HA1C, CMP, #### [facility] ([id number]) [address], [address] [place], [place] [address]OYHRLGWACJC RELATIVE PERCENT BY AUTOMATED COUNT10.9 %Normal ProMPioneers Memorial HospitalComment on above:Performed By: #### 14261-6 #### [facility] ([id number]) [address] [place] [address] 05172 #### CBCA, HA1C, CMP, #### [facility] ([id number]) [address], [address] [place], [place] [address]VTT (RBC) [Entitic mass]28.1 wbCccpaz26-04BpwEbqewz Blackstone HospitalComment on above:Performed By: #### 67040-3 #### [facility] ([id number]) [address] [place] [address] 33110 #### CBCA, HA1C, CMP, -1 #### [facility] ([id number]) [address] [facility] [place], [place] [address]FLGW (RBC) [Mass/Vol]33.4 g/mAEquifi92-71WfcXhlrrnPermian Regional Medical CenterComment on above:Performed By: #### 50035-4 #### [facility] ([id number]) [address] [place] [address] 87387 #### CBCA, HA1C, CMP, #### [facility] ([id number]) [address], [address] [place], [place] [address]USB (RBC) [Entitic vol]84 gOWsxriq12-368BdjRvdake Fremont HospitalComment on above:Performed By: #### 57148-2 #### [facility] ([id number]) [address] [place] [address] 07740 #### CBCA, HA1C, CMP, #### [facility] ([id number]) [address], [address] [place], [place] [address]HAIZYQOGI ABSOLUTE COUNT (10*3/UL) BY AUTOMATED COUNT0.5 10*3/uL Normal0.0-0.9ProPermian Regional Medical CenterComment on above:Performed By: #### 32674-3 #### [facility] ([id number]) [address] [place] [address] 78100 #### CBCA, HA1C, CMP, #### [facility] ([id number]) [address] [facility] [place], [place] [address]YTAJVCQLL RELATIVE PERCENT BY AUTOMATED COUNT6.8 %Normal [facility] Medical CenterComment on above:Performed By: #### 37547-4 #### [facility] ([id number]) [address] [place] [address] 66196 #### CBCA, HA1C, CMP, #### [facility] ([id number]) [address] [place], [place] [address]JRJNBRLZARS ABSOLUTE COUNT BY AUTOMATED COUNT5.8 10*3/uLNormal 1.5-6.6ProHenry County Hospitalca [facility], Centinela CampusComment on above:Performed By: #### 83636-8 #### [facility] ([id number]) [address] [place] [address] 96953 #### CBCA, HA1C, CMP, #### [facility] ([id number]) [address] [place], [place] [address]TZRQJGCIAVU RELATIVE PERCENT BY AUTOMATED COUNT81.3 %Normal [facility] Medical CenterComment on above:Performed By: #### 11276-1 #### [facility] ([id number]) [address] [place] [address] 70228 #### CBCA, HA1C, CMP, #### [facility] ([id number]) [address] [facility] [place], [place] [address]Qglgsipz mean volume (Bld) [Entitic vol]8.5 fLNormal7-12 [facility] Medical CenterComment on above:Performed By: #### 69241-3 #### [facility] ([id number]) [address] [place] [address] 04982 #### CBCA, HA1C, CMP, #### [facility] ([id number]) [address], [address] [place], [place] [address]Ebbamwvcg (Bld) [#/Vol]338 10*3/eEAhqjhf950-380HwlNtqhoqUniversity Hospitals Samaritan Medical CenterComment on above:Performed By: #### 41174-8 #### [facility] ([id number]) [address] [place] [address] 89062 #### CBCA, HA1C, CMP, 17172-5 #### [facility] ([id number]) [address] [facility] [place], [place] [address]MOV COUNT3.37 X10E12/LLow3.8-5.2POhioHealth Van Wert Hospital Comment on above:Performed By: #### 64213-9 #### [facility] ([id number]) [address] [place] [address] 95727 #### CBCA, HA1C, CMP, #### [facility] ([id number]) [address] [facility] [place], [place] [address]PTT (Bld) [#/Vol]7.2 10*3/uLNormal4-11[facility] Comment on above:Performed By: #### 63460-9 #### [facility] ([id number]) [address] [place] [address] 17346 #### CBCA, HA1C, CMP, 62292-2 #### [facility] ([id number]) [address] [facility] [facility] [place], [place] [address]ZOY WITH AUTO DIFFERENTIALon 62-22-0152ZXDBAUMPT ABSOLUTE COUNT (10*3/UL) BY AUTOMATED COUNT0.1 10*3/uLNormalProPermian Regional Medical CenterComment on above:Performed By: #### 49908-5 #### [facility] ([id number]) [address] [place] [address] 64536 #### CBCA, HA1C, CMP, 90526-4 #### [facility] ([id number]) [address] [facility] [place], [place] [address]AUXGXYXOX RELATIVE PERCENT BY AUTOMATED COUNT0.8 %Normal [facility] Medical CenterComment on above:Performed By: #### 12912-5 #### [facility] ([id number]) [address] [place] [address] 14170 #### CBCA, HA1C, CMP, 62457-8 #### [facility] ([id number]) [address] [facility] [facility], [address] [place], [place] [address]FTTPMKEWYVO DIFFERENTIAL TYPEAUTOMATED DIFFERENTIALNormal [facility] Medical CenterComment on above:Performed By: #### 83868-5 #### [facility] ([id number]) [address] [place] [address] 13612 #### CBCA, HA1C, CMP, 1968-02, 32116-1 #### [facility] ([id number]) [address] [facility], [address] [place], [place] [address]Fgqajeqkqjm (Bld) [#/Vol]0.2 10*3/uLNormalProMedica Centin[facility], Centinela CampusComment on above:Performed By: #### 65930-0 #### [facility] ([id number]) [address] [place] [address] 37081 #### CBCA, HA1C, CMP, 95072-9 #### [facility] ([id number]) [address] [facility], [address] [place], [place] [address]EYTZTCJFJHB RELATIVE PERCENT BY AUTOMATED COUNT3.9 %Normal [facility] Medical CenterComment on above:Performed By: #### 31708-8 #### [facility] ([id number]) [address] [place] [address] 94327 #### CBCA, HA1C, CMP, #### [facility] ([id number]) [address] [place], [place] [address]Hfthwjpzqjj distribution width (RBC) [Ratio]16.0 %High11.5-15 [facility], Centinela CampusComment on above:Performed By: #### 98531-1 #### [facility] ([id number]) [address] [place] [address] 29176 #### CBCA, HA1C, CMP, #### [facility] ([id number]) [address], [address] [place], [place] [address]Yuqnrwipqa (Bld) [Volume fraction]24.7 %Jbs67-07JckFxmevn [facility], Centin[facility] CampusComment on above:Performed By: #### 76873-1 #### [facility] ([id number]) [address] [place] [address] 85679 #### CBCJacob, HA1C, CMP, 26933-3 #### [facility] ([id number]) [address] [place], [place] [address]Lwhazrcsah (Bld) [Mass/Vol]8.5 g/dLLow11.7-15.5[facility], Centinela CampusComment on above:Performed By: #### 83377-0 #### [facility] ([id number]) [address] [place] [address] 13122 #### CBCA, HA1C, CMP, 47898-4 #### [facility] ([id number]) [address] [place], [place] [address]EIDFNMDPRXT ABSOLUTE COUNT (10*3/UL) BY AUTOMATED COUNT1.1 10*3/uLNormalProPermian Regional Medical CenterComment on above:Performed By: #### 09876-6 #### [facility] ([id number]) [address] [place] [address] 90868 #### CBCA, HA1C, CMP, #### [facility] ([id number]) [address] [facility] [place], [place] [address]UAGAYDEYCSX RELATIVE PERCENT BY AUTOMATED COUNT17.5 %Normal [facility], Centinela CampusComment on above:Performed By: #### 63021-5 #### [facility] ([id number]) [address] [place] [address] 87605 #### CBCA, HA1C, CMP, #### [facility] ([id number]) [address] [facility] [place], [place] [address]JWU (RBC) [Entitic mass]29.0 xzUvbnhu95-55SwnXjnsimPermian Regional Medical CenterComment on above:Performed By: #### 97582-6 #### [facility] ([id number]) [address] [place] [address] 08269 #### CBCA, HA1C, CMP, #### [facility] ([id number]) [address] [facility] [place], [place] [address]NMLA (RBC) [Mass/Vol]34.4 g/vBFeqhzm17-14UslDwpvxePermian Regional Medical CenterComment on above:Performed By: #### 77605-8 #### [facility] ([id number]) [address] [place] [address] 69588 #### CBCA, HA1C, CMP, #### [facility] ([id number]) [address] [facility] [place], [place] [address]BKC (RBC) [Entitic vol]84 iJLvadig14-538TddOqjwdo Fremont HospitalComment on above:Performed By: #### 05666-0 #### [facility] ([id number]) [address] [place] [address] 81219 #### CBCA, HA1C, CMP, #### [facility] ([id number]) [address] [facility] [place], [place] [address]TVHYKRGLI ABSOLUTE COUNT (10*3/UL) BY AUTOMATED COUNT0.6 10*3/uL NormalProPermian Regional Medical CenterComment on above:Performed By: #### 13794-8 #### [facility] ([id number]) [address] [place] [address] 65658 #### CBCA, HA1C, CMP, #### [facility] ([id number]) [address] [facility] [place], [place] [address]NQTCWDNYC RELATIVE PERCENT BY AUTOMATED COUNT8.9 %Normal [facility] Medical CenterComment on above:Performed By: #### 95283-0 #### [facility] ([id number]) [address] [place] [address] 64784 #### CBCA, HA1C, CMP, #### [facility] ([id number]) [address] [facility] [place], [place] [address]CDHLDKDPCPU ABSOLUTE COUNT BY AUTOMATED COUNT4.4 10*3/uLNormal [facility] Medical CenterComup health system on above:Performed By: #### 39706-1 #### [facility] ([id number]) [address] [place] [address] 54937 #### CBCA, HA1C, CMP, #### [facility] ([id number]) [address] [facility] [place], [place] [address]VWMIIOPSEKZ RELATIVE PERCENT BY AUTOMATED COUNT68.9 %Normal [facility] Medical CenterComment on above:Performed By: #### 81707-9 #### [facility] ([id number]) [address] [place] [address] 52348 #### CBCA, HA1C, CMP, #### [facility] ([id number]) [address] [facility] [place], [place] [address]Xljjcjsa mean volume (Bld) [Entitic vol]8.4 fLNormal7-12 [facility] Medical CenterComment on above:Performed By: #### 23814-6 #### [facility] ([id number]) [address] [place] [address] 22145 #### CBCA, HA1C, CMP, #### [facility] ([id number]) [address] [facility] [place], [place] [address]Pxdknkdyy (Bld) [#/Vol]245 10*3/hGDswrxs274-807ZpuAdzhpu [facility], Cent[facility] CampusComment on above:Performed By: #### 93301-0 #### [facility] ([id number]) [address] [place] [address] 74634 #### CBCA, HA1C, CMP, #### [facility] ([id number]) [address] [facility] [place], [place] [address]FVQ COUNT2.94 X10E12/LLow3.8-5.2POur Lady of the Lake Ascensionica [facility] Comment on above:Performed By: #### 28617-7 #### [facility] ([id number]) [address] [place] [address] 92846 #### CBCA, HA1C, CMP, #### [facility] ([id number]) [address] [place], [place] [address]PEZ (Bld) [#/Vol]6.4 10*3/uLNormal4-11[facility] Comment on above:Performed By: #### 14991-6 #### [facility] ([id number]) [address] [place] [address] 80658 #### CBCA, HA1C, CMP, 48690-9 #### [facility] ([id number]) [address] [facility] [place], [place] [address]OWKCZMKCTHIDK METABOLIC PANELon 36-81-0376Obqxfoe [Mass/Vol]2.6 g/dLLow3.2-5.3[facility], Centinela CampusComment on above:Performed By: #### 24907-8 #### [facility] ([id number]) [address] [place] [address] 13804 #### CBCA, HA1C, CMP, 32035-7 #### [facility] ([id number]) [address] [facility] [place], [place] [address]BLD [Catalytic activity/Vol]57 U/FSibuda69-425MsdBkbfeqUniversity Hospitals Samaritan Medical CenterComment on above:Performed By: #### 30469-1 #### [facility] ([id number]) [address] [place] [address] #### CBCA, HA1C, CMP, 23472-3 #### [facility] ([id number]) [address] [facility], [address] [place], [place] [address]LUA [Catalytic activity/Vol]10 U/LNormal<=31POhioHealth Van Wert HospitalComment on above:Performed By: #### 98423-6 #### [facility] ([id number]) [address] [place] [address] #### CBCA, HA1C, CMP, #### [facility] ([id number]) [address] [place] [address], [address] [place], [place] [address]Onxqg gap [Moles/Vol]7 mmol/LNormal5-15ProPermian Regional Medical CenterComment on above:Performed By: #### 53420-9 #### [facility] ([id number]) [address] [place] [address]8584 #### CBCA, HA1C, CMP, #### [facility] ([id number]) [address] [place] [address], [address] [place], [place] [address]NHK [Catalytic activity/Vol]17 U/LNormal<=41ProPermian Regional Medical CenterComment on above:Performed By: #### 41451-2 #### [facility] ([id number]) [address] [place] [address] #### CBCA, HA1C, CMP, #### [facility] ([id number]) [address] [place] [address], [address] [place] [address]Jpllvrkwj [Mass/Vol]0.7 mg/dLNormal0.3-1.2ProMedKaiser Foundation HospitalComment on above:Performed By: #### 55909-2 #### [facility] ([id number]) [address] [place] [address] #### CBCA, HA1C, CMP, #### [facility] ([id number]) [address] [place] [address], [address] [place], [place] [address]Ccewfio [Mass/Vol]8.8 mg/dLNormal8.5-10.5POhioHealth Van Wert HospitalComment on above:Performed By: #### 65803-7 #### [facility] ([id number]) [address] [place] [address] #### CBCA, HA1C, CMP, 31-1 #### [facility] ([id number]) [address] [facility], [address] [place], [place] [address]Iklnmozj [Moles/Vol]107 mmol/YAqczfd99-344ZyyXivoqlPermian Regional Medical CenterComment on above:Performed By: #### 04955-0 #### [facility] ([id number]) [address] [place] [address] #### CBCA, HA1C, CMP, #### [facility] ([id number]) [address] [facility], [address] [place], [place] [address]PD6 [Moles/Vol]24 mmol/SIlfiaj21-21CisCxtfimOhioHealth Van Wert Hospital Comment on above:Performed By: #### 74747-6 #### [facility] ([id number]) [address] [place] [address] #### CBCA, HA1C, CMP, #### [facility] ([id number]) [address] [facility], [address] [place], [place] [address]Olkgskydsv [Mass/Vol]1.10 mg/dLHigh0.40-1.00[facility]aritan Medical CenterComment on above:Result Comment: METHOD TRACEABLE TO IDMS STANDARD Performed By: #### 54435-9 #### [facility] ([id number]) [address] [place] [address] 25099 #### CBCA, HA1C, CMP, #### [facility] ([id number]) [address] [facility], [address] [place], [place] [address]GZI/1.73 sq M.predicted among non-blacks MDRD (S/P/Bld) [Vol rate/Area]49 mL/min/{1.73_m2}Low>=60ProPermian Regional Medical CenterComment on above: Result Comment: eGFR not reported due to non-numeric value for Creatinine. Reported eGFR is based on the CKD-EPI 2020 equation that does not use a race coefficient.Performed By: #### 73182-6 #### [facility] ([id number]) [address] [place] [address] 70896 #### SHEFALI, HA1C, CMP, #### [facility] ([id number]) [address] [place] [address], [address] [place], [place] [address]Mdpuhbn [Mass/Vol]103 mg/pJSxob11-55McqDwcudyUniversity Hospitals Samaritan Medical Center Comment on above:Performed By: #### 06073-3 #### [facility] ([id number]) [address] [place] [address] 47129 #### TREY MEEHAN, CMP, #### [facility] ([id number]) [address] [place] [address], [address] [place], [place] [address]Jsfndaoxk [Moles/Vol]3.8 mmol/LNormal3.5-5.0[facility]aritan Medical CenterComment on above:Performed By: #### 88235-9 #### [facility] ([id number]) [address] [place] [address] 96165 #### SHEFALI, HA1C, CMP, #### [facility] ([id number]) [address] [place] [address], [address] [place], [place] [address]Dndnoow [Mass/Vol]5.3 g/dLLow6.0-8.0[facility] Comment on above:Performed By: #### 43749-0 #### [facility] ([id number]) [address] [place] [address] 86524 #### CBCA, HA1C, CMP, #### [facility] ([id number]) [address], [address] [place], [place] [address]Dmkxas [Moles/Vol]138 mmol/CXxxrac574-904VxqAzajlx [facility]ont HospitalComment on above:Performed By: #### 79815-3 #### [facility] ([id number]) [address] [place] [address] 03944 #### CBCA, HA1C, CMP, #### [facility] ([id number]) [address] [facility] [place], [place] [address]Kcwc nitrogen [Mass/Vol]27 mg/dLNormal5-27ProPermian Regional Medical CenterComment on above:Performed By: #### 38998-2 #### [facility] ([id number]) [address] [place] [address] 84536 #### CBCA, HA1C, CMP, #### [facility] ([id number]) [address] [facility], [address] [place], [place] [address]FPPPSHSAUgw 95-57-3217Ahltuwpeh [Mass/Vol]2.2 mg/dLNormal1.8-2.6 [facility], Centinela CampusComment on above:Performed By: #### 44080-4 #### [facility] ([id number]) [address] [place] [address] 42545 #### CBCA, HA1C, CMP, #### [facility] ([id number]) [address] [facility] [place], [place] [address]NPO WITH AUTO DIFFERENTIALon 48-38-5364EHNMSYVJM ABSOLUTE COUNT (10*3/UL) BY AUTOMATED COUNT0.0 10*3/uLNormalProPermian Regional Medical CenterComment on above:Performed By: #### 25612-0 #### [facility] ([id number]) [address], [address] [place] [address]RNNBXPADS RELATIVE PERCENT BY AUTOMATED COUNT0.7 %Normal [facility]aritan Medical CenterComment on above:Performed By: #### 79266-7 #### [facility] ([id number]) [address], [address] [place] [address]HGFTWMOZZRL DIFFERENTIAL TYPEAUTOMATED DIFFERENTIALNormal [facility] Medical CenterComment on above:Performed By: #### 27043-9 #### [facility] ([id number]) [address], [address] [place], [place] [address]Ptlbpgpeatu (Bld) [#/Vol]0.2 10*3/uLNormalUniversity Hospitals Samaritan Medical CenterComment on above:Performed By: #### 95903-2 #### [facility] ([id number]) [address], [address] [place], [place] [address]QKUIQBLLDSP RELATIVE PERCENT BY AUTOMATED COUNT4.3 %Normal [facility] Medical CenterComment on above:Performed By: #### 71758-6 #### [facility] ([id number]) [address], [address] [place] [address]Qvbxifqpdfm distribution width (RBC) [Ratio]16.2 %High11.5-15 [facility] Medical CenterComment on above:Performed By: #### 79814-2 #### [facility] ([id number]) [address], [address] [place], [place] [address]Lhahscghfg (Bld) [Volume fraction]24.8 %Yag72-82WhvJzqimsUniversity Hospitals Samaritan Medical CenterComment on above:Performed By: #### 83023-3 #### [facility] ([id number]) [address], [address] [place], [place] [address]Ujipgbnhhx (Bld) [Mass/Vol]8.5 g/dLLow11.7-15.5Pro[facility], Centinela CampusComment on above:Performed By: #### 73760-1 #### [facility] ([id number]) [address], [address] [place], [place] [address]FEHHOBDJZDP ABSOLUTE COUNT (10*3/UL) BY AUTOMATED COUNT1.1 10*3/uLNoalUniversity Hospitals Samaritan Medical CenterComment on above:Performed By: #### 50418-6 #### [facility] ([id number]) [address], [address] [place], [place] [address]EYTPEVKWCYK RELATIVE PERCENT BY AUTOMATED COUNT18.7 %Normal [facility] Medical CenterComment on above:Performed By: #### 36669-6 #### [facility] ([id number]) [address], [address] [place] [address]OLK (RBC) [Entitic mass]28.7 olTcdhvb97-43OjqTffnofUniversity Hospitals Samaritan Medical CenterComment on above:Performed By: #### 58660-4 #### [facility] ([id number]) [address], [address] [place] [address]QFIM (RBC) [Mass/Vol]34.3 g/rBLpaqxk91-00SbbTdoeatUniversity Hospitals Samaritan Medical CenterComment on above:Performed By: #### 22082-4 #### [facility] ([id number]) [address], [address] [place] [address]QTT (RBC) [Entitic vol]84 mLTrebef52-767LzrUrdwqpUniversity Hospitals Samaritan Medical CenterComment on above:Performed By: #### 86051-6 #### [facility] ([id number]) [address], [address] [place], [place] [address]TQEJFFEUY ABSOLUTE COUNT (10*3/UL) BY AUTOMATED COUNT0.6 10*3/uL NormalUniversity Hospitals Samaritan Medical CenterComment on above:Performed By: #### 51564-5 #### [facility] ([id number]) [address], [address] [place] [address]EDFMDDFZK RELATIVE PERCENT BY AUTOMATED COUNT9.6 %Normal [facility] Medical CenterComment on above:Performed By: #### 53700-6 #### [facility] ([id number]) [address], [address] [place] [address]KUSGVXRUAVI ABSOLUTE COUNT BY AUTOMATED COUNT3.8 10*3/uLNormal [facility] Medical CenterComment on above:Performed By: #### 63530-2 #### [facility] ([id number]) [address], [address] [place] [address]ACVQWVAPCJU RELATIVE PERCENT BY AUTOMATED COUNT66.7 %Normal [facility] Medical CenterComment on above:Performed By: #### 94387-7 #### [facility] ([id number]) [address], [address] [place] [address]Ubucszgq mean volume (Bld) [Entitic vol]8.3 fLNormal7-12 [facility] Medical CenterComment on above:Performed By: #### 94572-7 #### [facility] ([id number]) [address], [address] [place] [address]Wfbtpshoi (Bld) [#/Vol]251 10*3/hDDithyn597-447CmjNeaayj [facility], Centin[facility] CampusComment on above:Performed By: #### 81680-6 #### [facility] ([id number]) [address], [address] [place], [place] [address]HJC COUNT2.96 X10E12/LLow3.8-5.2POur Lady of the Lake [facility] Comment on above:Performed By: #### 40086-4 #### [facility] ([id number]) [address], [address] [place] [address]ABV (Bld) [#/Vol]5.7 10*3/uLNormal4-11[facility] Comment on above:Performed By: #### 61118-5 #### [facility] ([id number]) [address], [address] [place], [place] [address]CUYIUFXKPGVHO METABOLIC PANELon 79-47-1619Mcdcovp [Mass/Vol]2.7 g/dLLow3.2-5.3POhioHealth Van Wert HospitalComment on above:Performed By: #### 54335-1 #### [facility] ([id number]) [address] [place] [address] 70542 #### CBCA, HA1C, CMP, #### [facility] ([id number]) [address], [address] [place], [place] [address]EOP [Catalytic activity/Vol]58 U/ZEfgwzz79-629WywZkcbnlPermian Regional Medical CenterComment on above:Performed By: #### 59282-2 #### [facility] ([id number]) [address] [place] [address] 47871 #### CBCA, HA1C, CMP, #### [facility] ([id number]) [address], [address] [place], [place] [address]CXA [Catalytic activity/Vol]12 U/LNormal<=31POhioHealth Van Wert HospitalComment on above:Performed By: #### 83305-8 #### [facility] ([id number]) [address] [place] [address] 89002 #### CBCA, HA1C, CMP, #### [facility] ([id number]) [address], [address] [place], [place] [address]Osaeb gap [Moles/Vol]5 mmol/LNormal5-15ProPermian Regional Medical CenterComment on above:Performed By: #### 19619-1 #### [facility] ([id number]) [address] [place] [address] 38278 #### CBCA, HA1C, CMP, 00826-7 #### [facility] ([id number]) [address], [address] [place], [place] [address]DRC [Catalytic activity/Vol]19 U/LNormal<=41ProPermian Regional Medical CenterComment on above:Performed By: #### 91787-4 #### [facility] ([id number]) [address] [place] [address] 22630 #### CBCJacob, HA1C, CMP, 62530-8 #### [facility] ([id number]) [address] [facility] [place], [place] [address]Iwpplcdbc [Mass/Vol]0.4 mg/dLNormal0.3-1.2POhioHealth Van Wert HospitalComment on above:Performed By: #### 82404-0 #### [facility] ([id number]) [address] [place] [address] 24027 #### SHEFALI, HA1C, CMP, #### [facility] ([id number]) [address], [address] [place], [place] [address]Dzabhlt [Mass/Vol]8.7 mg/dLNormal8.5-10.5POhioHealth Van Wert HospitalComment on above:Performed By: #### 96073-5 #### [facility] ([id number]) [address] [place] [address] 85705 #### CBCA, HA1C, CMP, 20578-2 #### [facility] ([id number]) [address], [address] [place], [place] [address]Wyvivxkq [Moles/Vol]110 mmol/AKtfv78-789KxuQbbyqjPermian Regional Medical CenterComment on above:Performed By: #### 41664-6 #### [facility] ([id number]) [address] [place] [address] 62869 #### TREY MEEHAN, CMP, #### [facility] ([id number]) [address], [address] [place], [place] [address]XI1 [Moles/Vol]22 mmol/EZwemaa92-18YkaYoqzqwOhioHealth Van Wert Hospital Comment on above:Performed By: #### 84441-3 #### [facility] ([id number]) [address] [place] [address] 57260 #### TREY MEEHAN, CMP, #### [facility] ([id number]) [address], [address] [place], [place] [address]Lycafytikk [Mass/Vol]1.13 mg/dLHigh0.40-1.00[facility] Medical CenterComment on above:Result Comment: METHOD TRACEABLE TO IDMS STANDARD Performed By: #### 77604-7 #### [facility] ([id number]) [address] [place] [address] 52360 #### TREY MEEHAN, CMP, #### [facility] ([id number]) [address], [address] [place], [place] [address]TDF/1.73 sq M.predicted among non-blacks MDRD (S/P/Bld) [Vol rate/Area]48 mL/min/{1.73_m2}Low>=60ProPermian Regional Medical CenterComment on above: Result Comment: eGFR not reported due to non-numeric value for Creatinine. Reported eGFR is based on the CKD-EPI 2021 equation that does not use a race coefficient.Performed By: #### 88418-0 #### [facility] ([id number]) [address] [place] [address] 95588 #### CBCA, HA1C, CMP, 11900-5 #### [facility] ([id number]) [address] [place] [address], [address] [place], [place] [address]Zaxxntc [Mass/Vol]105 mg/rBFrey50-45OebSsbqbiPermian Regional Medical Center Comment on above:Performed By: #### 14739-3 #### [facility] ([id number]) [address] [place] [address] 20085 #### CBCA, HA1C, CMP, 66606-9 #### [facility] ([id number]) [address] [place] [address], [address] [place], [place] [address]Tbrxcxddo [Moles/Vol]4.0 mmol/LNormal3.5-5.0ProPermian Regional Medical CenterComment on above:Performed By: #### 57037-1 #### [facility] ([id number]) [address] [place] [address] 81667 #### CBCA, HA1C, CMP, 88333-2 #### [facility] ([id number]) [address] [place] [address], [address] [place], [place] [address]Xrruqyu [Mass/Vol]5.5 g/dLLow6.0-8.0[facility] Comment on above:Performed By: #### 54657-7 #### [facility] ([id number]) [address] [place] [address] 21529 #### CBCA, HA1C, CMP, 35803-3 #### [facility] ([id number]) [address] [place] [address], [address] [place], [place] [address]Imziwg [Moles/Vol]137 mmol/KSehpbj654-303MfpAklxmy [facility]ont HospitalComment on above:Performed By: #### 94506-8 #### [facility] ([id number]) [address] [place] [address], [place] [address] #### CBCA, HA1C, CMP, 62963-1 #### [facility] ([id number]) [address], [address] [place], [place] [address]Zhbh nitrogen [Mass/Vol]22 mg/dLNormal5-27ProMediSan Francisco Marine HospitalComment on above:Performed By: #### 58310-5 #### [facility] ([id number]) [address] [place] [address] 48649 #### CBCA, HA1C, CMP, 49357-5 #### [facility] ([id number]) [address] [place], [place] [address]MYZGBYTQUyo 18-09-7849Fulvbdsit [Mass/Vol]2.2 mg/dLNormal1.8-2.6 [facility] CenterComment on above:Performed By: #### 09879-7 #### [facility] ([id number]) [address] [place] [address] 11244 #### CBCA, HA1C, CMP, 39571-3 #### [facility] ([id number]) [address], [address] [place], [place] [address]TAQ WITH AUTO DIFFERENTIALon 99-47-7541YZPQVQSHJ ABSOLUTE COUNT (10*3/UL) BY AUTOMATED COUNT0.0 10*3/uLNormalProPermian Regional Medical CenterComment on above:Performed By: #### CBCA ####[facility] ([facility])[address] [place], [place] [id number] VIRBASOPHILS RELATIVE PERCENT BY AUTOMATED COUNT0.6 %NormalProPermian Regional Medical CenterComment on above:Performed By: #### CBCA ####[facility] ([facility])[address] [place], [place] [id number] VIRCELLAVISION DIFFERENTIAL TYPEAUTOMATED DIFFERENTIAL NormalUniversity Hospitals Samaritan Medical CenterComment on above:Performed By: #### CBCA ####[facility] ([address], [id number] VIREosinophils (Bld) [#/Vol]0.1 10*3/uLNormalUniversity Hospitals Samaritan Medical CenterComment on above:Performed By: #### CBCA ####[facility] ([address], [id number] VIREOSINOPHILS RELATIVE PERCENT BY AUTOMATED COUNT2.3 %NormalUniversity Hospitals Samaritan Medical CenterComment on above:Performed By: #### CBCA ####[facility] ([address], [id number] VIRErythrocyte distribution width (RBC) [Ratio]16.0 %High 11.5-15[facility]itan Medical CenterComment on above:Performed By: #### CBCA ####[facility] ([address], [id number] VIRHematocrit (Bld) [Volume fraction]24.6 %Npp46-83IxbOmlawqUniversity Hospitals Samaritan Medical Center Comment on above:Performed By: #### CBCA ####[facility] ([address], [id number] VIRHemoglobin (Bld) [Mass/Vol]8.5 g/dL Low11.7-15.5Pro[facility], Centinela CampusComment on above:Performed By: #### CBCA ####[facility] ([address], [id number] VIRLYMPHOCYTES ABSOLUTE COUNT (10*3/UL) BY AUTOMATED COUNT1.0 10*3/uLNormal [facility] Medical CenterComment on above:Performed By: #### CBCA ####[facility] ([address], [id number] VIR LYMPHOCYTES RELATIVE PERCENT BY AUTOMATED COUNT16.1 %NormalUniversity Hospitals Samaritan Medical CenterComment on above:Performed By: #### CBCA ####[facility] ([facility])[address] [place], [place] [address]T [address].[place], [id number] VIRMCH (RBC) [Entitic mass] 28.6 poHuhatt12-75NmxDpnfwiPermian Regional Medical CenterComment on above:Performed By: #### CBCA ####[facility] ([facility])[address] [place] [address] [place] [address] VIRMCHC (RBC) [Mass/Vol]34.5 g/gYTgsalk43-09VqzQxerlpCherrington Hospital on above:Performed By: #### CBCA ####[facility] ([address], [id number] VIRMCV (RBC) [Entitic vol]83 fLNormal 80-100ProPermian Regional Medical CenterComment on above:Performed By: #### CBCA ####[facility] ([address], [id number] VIRMONOCYTES ABSOLUTE COUNT (10*3/UL) BY AUTOMATED COUNT0.6 10*3/uLNoal [facility] Medical CenterComment on above:Performed By: #### CBCA ####[facility] ([address], [id number] VIRMONOCYTES RELATIVE PERCENT BY AUTOMATED COUNT8.9 %NormalProPermian Regional Medical CenterComment on above:Performed By: #### CBCA ####[facility] ([address], [id number] VIRNEUTROPHILS ABSOLUTE COUNT BY AUTOMATED COUNT4.6 10*3/uLNormalUniversity Hospitals Samaritan Medical CenterComment on above: Performed By: #### CBCA ####[facility] ([facility] [address], [id number] VIRNEUTROPHILS RELATIVE PERCENT BY AUTOMATED COUNT72.1 %NormalProPermian Regional Medical CenterComment on above:Performed By: #### CBCA ####[facility] ([facility])[address], [id number] VIRPlatelet mean volume (Bld) [Entitic vol]8.0 fLNormal7-12POhioHealth Van Wert HospitalComment on above:Performed By: #### CBCA ####[facility] ([facility])[address] [place] [address] [address]VE.[place], [id number] VIRPlatelets (Bld) [#/Vol]249 10*3/fGSmfbjp528-015XznLxsfzf [facility]ont HospitalComment on above:Performed By: #### CBCA ####[facility] ([facility])[address] [place] [address] [address]VE.[place], [id number] VIRRBC COUNT2.97 X10E12/LLow3.8-5.2POhioHealth Van Wert HospitalComment on above:Performed By: #### CBCA ####[facility] ([facility])[address] [place] [address] [address]VE[address], [id number] VIRWBC (Bld) [#/Vol]6.4 10*3/uLNormal4-11ProPermian Regional Medical CenterComment on above:Performed By: #### CBCA ####[facility] ([facility])[address] [place], [place] [address]E.[facility] [place] [address] VIRCOMPREHENSIVE METABOLIC PANELon 12-79-3973Qdjguqb [Mass/Vol]3.0 g/dLLow 3.2-5.3POhioHealth Van Wert HospitalComment on above:Performed By: #### 83205-3 #### [facility] ([id number]) [address] [place], [place] [address]GZH [Catalytic activity/Vol]60 U/ZSohtmq87-465SelMhzokjPermian Regional Medical CenterComment on above:Performed By: #### 17685-5 #### [facility] ([id number]) [address], [address] [place], [place] [address]VBG [Catalytic activity/Vol]11 U/LNormal<=31POhioHealth Van Wert HospitalComment on above:Performed By: #### 29346-5 #### [facility] ([id number]) [address] [place], [place] [address]Gxckb gap [Moles/Vol]8 mmol/LNormal5-15ProPermian Regional Medical CenterComment on above:Performed By: #### 85333-4 #### [facility] ([id number]) [address] [place], [place] [address]SWJ [Catalytic activity/Vol]20 U/LNormal<=41ProPermian Regional Medical CenterComment on above:Performed By: #### 51813-8 #### [facility] ([id number]) [address] [place], [place] [address]Otbxeaedl [Mass/Vol]0.6 mg/dLNormal0.3-1.2POhioHealth Van Wert HospitalComment on above:Performed By: #### 45713-6 #### [facility] ([id number]) [address], [address] [place], [place] [address]Bjbjeas [Mass/Vol]8.7 mg/dLNormal8.5-10.5POhioHealth Van Wert HospitalComment on above:Performed By: #### 95400-3 #### [facility] ([id number]) [address] [place], [place] [address]Onajllmt [Moles/Vol]109 mmol/JAluqgz53-936MqaFkyjygPermian Regional Medical CenterComment on above:Performed By: #### 28918-0 #### [facility] ([id number]) [address] [place], [place] [address]MN3 [Moles/Vol]24 mmol/JAyjljv02-14YpfRbnsqvOhioHealth Van Wert Hospital Comment on above:Performed By: #### 50519-7 #### [facility] ([id number]) [address] [place], [place] [address]Dovwpcidrf [Mass/Vol]1.21 mg/dLHigh0.40-1.00ProPermian Regional Medical CenterComment on above:Result Comment: METHOD TRACEABLE TO IDMS STANDARD Performed By: #### 51301-2 #### [facility] ([id number]) [address], [address] [place], [place] [address]UCD/1.73 sq M.predicted among non-blacks MDRD (S/P/Bld) [Vol rate/Area]44 mL/min/{1.73_m2}Low>=60ProPermian Regional Medical CenterComment on above: Result Comment: eGFR not reported due to non-numeric value for Creatinine. Reported eGFR is based on the CKD-EPI 2020 equation that does not use a race coefficient.Performed By: #### 38944-2 #### [facility] ([id number]) [address], [address] [place], [place] [address]Telkmwk [Mass/Vol]102 mg/eNNtmz55-62EecGxaakpPermian Regional Medical Center Comment on above:Performed By: #### 57804-6 #### [facility] ([id number]) [address], [address] [place], [place] [address]Mshifjlhu [Moles/Vol]2.8 mmol/LLow3.5-5.0ProPermian Regional Medical CenterComment on above:Performed By: #### 01915-2 #### [facility] ([id number]) [address], [address] [place], [place] [address]Mxqctiu [Mass/Vol]5.6 g/dLLow6.0-8.0[facility] Comment on above:Performed By: #### 43021-5 #### [facility] ([id number]) [address], [address] [place], [place] [address]Aqfnum [Moles/Vol]141 mmol/WNcdxdu002-037CnwShjzbv Fremont HospitalComment on above:Performed By: #### 62912-2 #### [facility] ([id number]) [address], [address] [place] [address]Bzha nitrogen [Mass/Vol]18 mg/dLNormal5-27ProPermian Regional Medical CenterComment on above:Performed By: #### 11513-3 #### [facility] ([id number]) [address], [address] [place], [place] [address]HDAATATUXdc 51-55-2734Ahezwlwte [Mass/Vol]2.2 mg/dLNormal1.8-2.6 [facility] CenterComment on above:Performed By: #### 63443-3 #### [facility] ([id number]) [address], [address] [place], [place] [address]NCLDUCMUPsu 52-80-6074Zvnzcwilb [Moles/Vol]4.7 mmol/LNormal 3.5-5.0[facility] Medical CenterComment on above:Performed By: #### 99716-2 #### [facility] ([id number]) [address], [address] [place] [address]LYY WITH AUTO DIFFERENTIALon 86-60-3368QKPBTPQDU ABSOLUTE COUNT (10*3/UL) BY AUTOMATED COUNT0.1 10*3/uLNormalProPermian Regional Medical CenterComment on above:Performed By: #### CBCA ####[facility] ([facility])[address], [id number] VIRBASOPHILS RELATIVE PERCENT BY AUTOMATED COUNT0.7 %NormalProPermian Regional Medical CenterComment on above:Performed By: #### CBCA ####[facility] ([facility])[address], [id number] VIRCELLAVISION DIFFERENTIAL TYPEAUTOMATED DIFFERENTIAL NormalProPermian Regional Medical CenterComment on above:Performed By: #### CBCA ####[facility] ([address], [id number] VIREosinophils (Bld) [#/Vol]0.0 10*3/uLNormalUniversity Hospitals Samaritan Medical CenterComment on above:Performed By: #### CBCA ####[facility] ([facility])[address] [place] [address] AVE.[place], [id number] VIREOSINOPHILS RELATIVE PERCENT BY AUTOMATED COUNT0.2 %NormalUniversity Hospitals Samaritan Medical CenterComment on above:Performed By: #### CBCA ####[facility] ([address], [id number] VIRErythrocyte distribution width (RBC) [Ratio]15.9 %High 11.5-15University Hospitals Samaritan Medical CenterComment on above:Performed By: #### CBCA ####[facility] ([address], [id number] VIRHematocrit (Bld) [Volume fraction]26.7 %Mjt73-77GnxJofcpoUniversity Hospitals Samaritan Medical Center Comment on above:Performed By: #### CBCA ####[facility] ([address], [id number] VIRHemoglobin (Bld) [Mass/Vol]9.0 g/dL Low11.7-15.5POhioHealth Van Wert HospitalComment on above:Performed By: #### CBCA ####[facility] ([address], [id number] VIRLYMPHOCYTES ABSOLUTE COUNT (10*3/UL) BY AUTOMATED COUNT0.7 10*3/uLNormal [facility]aritan Medical CenterComment on above:Performed By: #### CBCA ####[facility] ([address], [id number] VIR LYMPHOCYTES RELATIVE PERCENT BY AUTOMATED COUNT9.5 %NormalUniversity Hospitals Samaritan Medical CenterComment on above:Performed By: #### CBCA ####[facility] ([facility])[address] [place] [address] AVE.[place], [id number] VIRMCH (RBC) [Entitic mass] 28.4 fuGlibcp46-39AhsOfkjkcUniversity Hospitals Samaritan Medical CenterComment on above:Performed By: #### CBCA ####[facility] ([address] [place] [address] VIRMCHC (RBC) [Mass/Vol]33.5 g/yVQagleu40-79DoaAurkuxUniversity Hospitals Samaritan Medical Center Comment on above:Performed By: #### CBCA ####[facility] ([address], [id number] VIRMCV (RBC) [Entitic vol]85 fLNormal 80-100ProPermian Regional Medical CenterComment on above:Performed By: #### CBCA ####[facility] ([address], [id number] VIRMONOCYTES ABSOLUTE COUNT (10*3/UL) BY AUTOMATED COUNT0.5 10*3/uLNoal [facility]itan Medical CenterComment on above:Performed By: #### CBCA ####[facility] ([facility])[address] [place] [address] [address]VE.[place], [id number] VIRMONOCYTES RELATIVE PERCENT BY AUTOMATED COUNT7.0 %NormalProPermian Regional Medical CenterComment on above:Performed By: #### CBCA ####[facility] ([address], [id number] VIRNEUTROPHILS ABSOLUTE COUNT BY AUTOMATED COUNT6.3 10*3/uLNoalUniversity Hospitals Samaritan Medical CenterComment on above: Performed By: #### CBCA ####[facility] ([facility])[address] [place], [place] [address]T AVE.[facility]ERT, [id number] VIRNEUTROPHILS RELATIVE PERCENT BY AUTOMATED COUNT82.6 %NormalProPermian Regional Medical CenterComment on above:Performed By: #### CBCA ####[facility] ([address], [id number] VIRPlatelet mean volume (Bld) [Entitic vol]8.0 fLNormal7-12POhioHealth Van Wert HospitalComment on above:Performed By: #### CBCA ####[facility] ([address], [id number] VIRPlatelets (Bld) [#/Vol]237 10*3/wYXnsoei507-209FbuTgvcqk [facility]ont HospitalComment on above:Performed By: #### CBCA ####[facility] ([address], [id number] VIRRBC COUNT3.15 X10E12/LLow3.8-5.2POhioHealth Van Wert HospitalComment on above:Performed By: #### CBCA ####[facility] ([address], [id number] VIRWBC (Bld) [#/Vol]7.7 10*3/uLNormal4-11ProPermian Regional Medical CenterComment on above:Performed By: #### CBCA ####[facility] ([address] [place] [address] VIRCOMPREHENSIVE METABOLIC PANELon 59-82-3140Xrqrkcj [Mass/Vol]3.4 g/dL Normal3.2-5.3POhioHealth Van Wert HospitalComment on above:Performed By: #### CMP ####[facility] ([address], [place] [address] VIRALP [Catalytic activity/Vol]67 U/DCauqtl67-287OkkKqveblPermian Regional Medical Center Comment on above:Performed By: #### CMP ####[facility] ([facility])[address] [place] [address].[place] [address] VIRALT [Catalytic activity/Vol]14 U/L Normal<=31POhioHealth Van Wert HospitalComment on above:Performed By: #### CMP ####[facility] ([facility])[address], [place] [address] VIRAnion gap [Moles/Vol]10 mmol/LNormal5-15[facility] Comment on above:Performed By: #### CMP ####[facility] ([place] [address] [place] [address] VIRAST [Catalytic activity/Vol]23 U/L Normal<=41University [facility]aritan Medical CenterComment on above:Performed By: #### CMP ####[facility] ([place] [address], [place] [address] VIRBilirubin [Mass/Vol]0.6 mg/dLNormal0.3-1.2POhioHealth Van Wert Hospital Comment on above:Performed By: #### CMP ####[facility] ([place] [address] [place] [address] VIRCalcium [Mass/Vol]8.8 mg/dLNormal 8.5-10.5POhioHealth Van Wert HospitalComment on above:Performed By: #### CMP ####[facility] ([place] [address], [place] [address] VIRChloride [Moles/Vol]107 mmol/TPehfzx92-998GcsFmwlxiUniversity Hospitals Samaritan Medical Center Comment on above:Performed By: #### CMP ####[facility] ([place] [address] [place] [address] VIRCO2 [Moles/Vol]23 mmol/ONpmtrq90-98 [facility] Medical CenterComment on above:Performed By: #### CMP ####[facility] ([place] [address] [place] [address] VIR Creatinine [Mass/Vol]1.45 mg/dLHigh0.40-1.00University [facility]als Samaritan Medical CenterComment on above:Result Comment: METHOD TRACEABLE TO IDMS STANDARDPerformed By: #### CMP ####[facility] ([address] [address] VIRGFR/1.73 sq M.predicted among non-blacks MDRD (S/P/Bld) [Vol rate/Area] 35 mL/min/{1.73_m2}Low>=60ProPermian Regional Medical CenterComment on above:Result Comment: eGFR not reported due to non-numeric value for Creatinine. Reported eGFR is based on the CKD-EPI 2020 equation that does not use a race coefficient.Performed By: #### CMP ####[facility] ([address] [address] VIRGlucose [Mass/Vol]98 mg/dL Pxvlid95-20BpwAzwgvzPermian Regional Medical CenterComment on above:Performed By: #### CMP ####[facility] ([address] [address] VIRPotassium [Moles/Vol]3.1 mmol/LLow3.5-5.0[facility] Comment on above:Performed By: #### CMP ####[address] [address] VIRProtein [Mass/Vol]6.4 g/dLNormal 6.0-8.0[facility]itan Medical CenterComment on above:Performed By: #### CMP ####[facility] ([address] [address] VIRSodium [Moles/Vol]140 mmol/CXivcna581-990ExmIiashgUniversity Hospitals Samaritan Medical Center Comment on above:Performed By: #### CMP ####[facility] ([address] [address] VIRUrea nitrogen [Mass/Vol]19 mg/dL Normal5-27ProPermian Regional Medical CenterComment on above:Performed By: #### CMP ####[facility] ([facility])[address], [place] [address] VIRFERRITINon 36-52-8655Gxzlbuhi [Mass/Vol]32 ng/vXDlpncf82-997RsjUbkirc [facility] HospitalComment on above:Performed By: #### 22850-1 #### [facility] ([id number]) [address] [place], [place] [address]RYFCMJhh 12-74-8441XORFJ ACID11.0 ng/mLNormal>5.8ProPermian Regional Medical CenterComment on above:Performed By: #### 18070-5 #### [facility] ([id number]) [address] [place], [place] [address]SZPQ AND TIBCon 06-64-6495Ikjd [Mass/Vol]24 ug/rFNyk23-575 [facility]itan Medical CenterComment on above:Performed By: #### 88713-5 #### [facility] ([id number]) [address] [place], [place] [address]IRYM JHEVUJN224 ug/pEQdmanl879-509CqnWjknutUniversity Hospitals Samaritan Medical Center Comment on above:Performed By: #### 87819-6 #### [facility] ([id number]) [address], [address] [place], [place] [address]CROE SATURATION8 % LEDWVESJWMEky33-60XgnQjiuyh [facility] Comment on above:Performed By: #### 60565-2 #### [facility] ([id number]) [address] [place], [place] [address]Qakyevuhles [Mass/Vol]210 mg/gCAulltq145-143LadLemtlxUniversity Hospitals Samaritan Medical CenterComment on above:Performed By: #### 13431-1 #### [facility] ([id number]) [address], [address] [place], [place] [address]MPVYLWAQQay 51-35-7313Cnahjbxrq [Mass/Vol]2.2 mg/dLNormal1.8-2.6 [facility] Medical CenterComment on above:Performed By: #### MG ####[facility] ([facility])[address] [place] [address] [place] [address] VIRPOTASSIUM on 43-67-5506Damcbtrby [Moles/Vol]3.1 mmol/LLow3.5-5.0[facility] Comment on above:Performed By: #### 94969-8 #### [facility] ([id number]) [address], [address] [place], [place] [address]SJSF I, HIGH SENSITIVITY 1 HOURon 94-54-3178ZIDTDYSS I, HIGH HLTWROQWKVS81 ng/LHigh<16ProPermian Regional Medical CenterComment on above:Order Comment: Elevations of hs-Troponin may be due to causesother than myocardial ischemia.Recommend serial hs-Troponin testing be performed.For the initial evaluation and management of chestpain patients, refer to the algorithms linked below.Emergency Patient:[email or web address]:[email or web address] =[email or web address]=acaeaPerformed By: #### [email or web address] ####[facility] ([facility])[address] [place] [address] [place] [address] VIRTROPONIN I, HIGH SENSITIVITY 0 HOURon 37-52-6169XUUEENEJ I, HIGH BAJVVSWZFRX78 ng/LHigh <16ProPermian Regional Medical CenterComment on above:Performed By: #### 57984-8 #### [facility] ([id number]) [address] [facility] [place] [address] #### CBCA, HA1C, CMP, 1968-, 56638-9 #### [facility] ([id number]) [address], [address] [place], [place] [address]CCYWHJR B12on 92-81-8838Diiibvppv (Vitamin B12) [Mass/Vol]144 pg/cJZxm623-698QhcHvimwf [facility], Centinela CampusComment on above:Performed By: #### 54467-7 #### [facility] ([id number]) [address] [place], [place] [address]NDKOTXG D 25 HYDROXYon 88-37-6042TEXNWKN D 25 HYD TOT59.5 ng/mL Mxmjlm89.0-100.0[facility]itan Medical CenterComment on above:Order Comment: Vitamin D status 25 [place] Vitamin D Deficiency <20 ng/mLInsufficiency 20-29 ng/mLSufficiency 30-100 ng/mLToxicity >100 ng/mLNOTE: A pediatric reference range has not been established by the assistant manager bilingual of this kit. The [place] [employer] recommends a Vitamin D level of = or >20ng/mL in infants and children.Performed By: #### 74519-6 #### [facility] ([id number]) [address], [address] [place], [place] [address]AL CHEST 1 VWon 61-35-9265XL CHEST 1 VWXR CHEST 1 VW History: dyspnea Exam/Technique: AP [...] by Volodymyr Gudino DO on 12/13/2024 9:21 PMNormalProHCA [facility] WITH AUTO DIFFERENTIALon 97-92-4987DXVKZJYVR ABSOLUTE COUNT (10*3/UL) BY AUTOMATED COUNT0.0 10*3/uLNormalUniversity Hospitals Samaritan Medical CenterComment on above:Performed By: #### CBCA ####[facility] ([address], [id number] VIRBASOPHILS RELATIVE PERCENT BY AUTOMATED COUNT0.3 %NormalUniversity Hospitals Samaritan Medical CenterComment on above:Performed By: #### CBCA ####[facility] ([address], [id number] VIRCELLAVISION DIFFERENTIAL TYPEAUTOMATED DIFFERENTIAL [facility] HospitalComment on above:Performed By: #### CBCA ####[facility] ([address], [id number] VIREosinophils (Bld) [#/Vol]0.0 10*3/uLMansfield HospitalComment on above:Performed By: #### CBCA ####[facility] ([address], [id number] VIREOSINOPHILS RELATIVE PERCENT BY AUTOMATED COUNT0.2 %[facility]field HospitalComment on above:Performed By: #### CBCA ####[facility] ([address], [id number] VIRErythrocyte distribution width (RBC) [Ratio]15.7 %High 11.5-15[facility]itan Medical CenterComment on above:Performed By: #### CBCA ####[facility] ([address], [id number] VIRHematocrit (Bld) [Volume fraction]25.7 %Niu41-31BkfOldbnoUniversity Hospitals Samaritan Medical Center Comment on above:Performed By: #### CBCA ####[facility] ([address], [id number] VIRHemoglobin (Bld) [Mass/Vol]8.7 g/dL Low11.7-15.5POhioHealth Van Wert HospitalComment on above:Performed By: #### CBCA ####[facility] ([facility])[address] [place], [place] [address]E.[place], [id number] VIRLYMPHOCYTES ABSOLUTE COUNT (10*3/UL) BY AUTOMATED COUNT0.5 10*3/uLNormal [facility] CenterComment on above:Performed By: #### CBCA ####[facility] ([facility])[address] [place], [place] [address]E.[place], [id number] VIR LYMPHOCYTES RELATIVE PERCENT BY AUTOMATED COUNT6.5 %NormalProPermian Regional Medical CenterComment on above:Performed By: #### CBCA ####[facility] ([facility])[address] [place], [place] [address]E.[place], [id number] VIRMCH (RBC) [Entitic mass] 28.4 myOnvcra86-99XepHzfdcfPermian Regional Medical CenterComment on above:Performed By: #### CBCA ####[facility] ([facility])[address] [place], [place] [address]E.[place], [place] [address] VIRMCHC (RBC) [Mass/Vol]33.8 g/lHYsxzzs07-96PmzBptoukUniversity Hospitals Samaritan Medical Center Comment on above:Performed By: #### CBCA ####[facility] ([facility])[address] [place], [place] [address]E.[place], [id number] VIRMCV (RBC) [Entitic vol]84 fLNormal 80-100[facility] Medical CenterComment on above:Performed By: #### CBCA ####[facility] ([facility])[address] [place], [place] [address]E.[place], [id number] VIRMONOCYTES ABSOLUTE COUNT (10*3/UL) BY AUTOMATED COUNT0.3 10*3/uLNormal [facility] Medical CenterComment on above:Performed By: #### CBCA ####[facility] ([facility])[address] [place], [place] [address]E.[place], [id number] VIRMONOCYTES RELATIVE PERCENT BY AUTOMATED COUNT4.3 %NormalUniversity Hospitals Samaritan Medical CenterComment on above:Performed By: #### CBCA ####[facility] ([facility] [address], [id number] VIRNEUTROPHILS ABSOLUTE COUNT BY AUTOMATED COUNT7.0 10*3/uLNormalProPomerene Hospital HospitalComment on above: Performed By: #### CBCA ####[facility] ([facility])[address] [place], [place] [address]T [address]VE.[place], [id number] VIRNEUTROPHILS RELATIVE PERCENT BY AUTOMATED COUNT88.7 %NormalUniversity Hospitals Samaritan Medical CenterComment on above:Performed By: #### CBCA ####[facility] ([facility])[address] [place], [place] [address]T [address]VE.[place], [id number] VIRPlatelet mean volume (Bld) [Entitic vol]8.6 fLNormal7-12POhioHealth Van Wert HospitalComment on above:Performed By: #### CBCA ####[facility] ([address], [id number] VIRPlatelets (Bld) [#/Vol]278 10*3/rNOnaxev764-068OppPcjxxj [facility] HospitalComment on above:Performed By: #### CBCA ####[facility] ([address], [id number] VIRRBC COUNT3.05 X10E12/LLow3.8-5.2POur Lady of the Lake Ascensionica [facility], Centinela CampusComment on above:Performed By: #### CBCA ####[facility] ([address], [id number] VIRWBC (Bld) [#/Vol]7.9 10*3/uLNormal4-11ProPermian Regional Medical CenterComment on above:Performed By: #### CBCA ####[facility] ([facility])[address] [place], [place] [address] [place] [address] VIRCK TOTALon 03-96-4454ZZB38 U/KZxdbpg41-118FiqOsicwwUniversity Hospitals Sam[facility] Center Comment on above:Performed By: #### CPK ####[facility] ([place] [address] [place] [address] VIRCOMPREHENSIVE METABOLIC PANELon 73-36-4040Gqgqagg [Mass/Vol]3.4 g/dLNormal3.2-5.3POhioHealth Van Wert Hospital Comment on above:Performed By: #### CMP ####[facility] ([place] [address] [place] [address] VIRALP [Catalytic activity/Vol]66 U/L Gwlpvp22-858RhsWtllunUniversity Hospitals Samaritan Medical CenterComment on above:Performed By: #### CMP ####[facility] ([place] [address], [place] [address] VIRALT [Catalytic activity/Vol]13 U/LNormal<=31POhioHealth Van Wert Hospital Comment on above:Performed By: #### CMP ####[facility] ([place] [address] [place] [address] VIRAnion gap [Moles/Vol]9 mmol/LNormal 5-15[facility] Medical CenterComment on above:Performed By: #### CMP ####[facility] ([place] [address], [place] [address] VIRAST [Catalytic activity/Vol]24 U/LNormal<=41[facility] Comment on above:Performed By: #### CMP ####[facility] ([place] [address] [place] [address] VIRBilirubin [Mass/Vol]0.7 mg/dLNormal 0.3-1.2POhioHealth Van Wert HospitalComment on above:Performed By: #### CMP ####[facility] ([place] [address], [place] [address] VIRCalcium [Mass/Vol]9.0 mg/dLNormal8.5-10.5POhioHealth Van Wert Hospital Comment on above:Performed By: #### CMP ####[facility] ([address] [address] VIRChloride [Moles/Vol]106 mmol/L Xzgleo08-862ZfuWxihwoPermian Regional Medical CenterComment on above:Performed By: #### CMP ####[facility] ([address], [place] [address] VIRCO2 [Moles/Vol]23 mmol/AAhcbtt90-27MrdCmhaisOhioHealth Van Wert HospitalComment on above:Performed By: #### CMP ####[facility] ([address] [address] VIRCreatinine [Mass/Vol]1.39 mg/dLHigh0.40-1.00 [facility] Medical CenterComment on above:Result Comment: METHOD TRACEABLE TO IDMS STANDARDPerformed By: #### CMP ####[facility] ([address] [address] VIRGFR/1.73 sq M.predicted among non- blacks MDRD (S/P/Bld) [Vol rate/Area]37 mL/min/{1.73_m2}Low>=60ProPermian Regional Medical CenterComment on above:Result Comment: eGFR not reported due to non-numeric value for Creatinine. Reported eGFR is based on the CKD-EPI 2021 equation that does not use a race coefficient.Performed By: #### CMP ####[facility] ([address] [address] VIRGlucose [Mass/Vol]113 mg/tNDgjf08-92QfyAnrvpnPermian Regional Medical CenterComment on above:Performed By: #### CMP ####[facility] ([address] [address] VIRPotassium [Moles/Vol]3.3 mmol/LLow3.5-5.0[facility] Comment on above:Performed By: #### CMP ####[facility] ([facility])[address] [place] [address] VIRProtein [Mass/Vol]6.1 g/dLNormal 6.0-8.0[facility] Medical CenterComment on above:Performed By: #### CMP ####[facility] ([address] [address] VIRSodium [Moles/Vol]138 mmol/HWrupmk476-422QvfYjazfuUniversity Hospitals Samaritan Medical Center Comment on above:Performed By: #### CMP ####[facility] ([address] [address] VIRUrea nitrogen [Mass/Vol]18 mg/dL Normal5-27ProPermian Regional Medical CenterComment on above:Performed By: #### CMP ####[facility] ([address] 4 [address]20 VIRCT BRAIN WO CONTon 80-83-1007FK BRAIN WO CONTCT BRAIN WO CONT STUDY: CT HEAD WITHOUT [...] by Ted Alexander MD on 12/12/2024 1:38 PMNormalProPermian Regional Medical CenterMYOGLOBIN, SERUMon 24-88-6779TEAJB QTJNETARD206.3 ng/qWYlqe26.3-65.8 [facility] Medical CenterComment on above:Performed By: #### MYOG ####[facility] ([facility])[address] [place] [address].[facility]CLOVISSunita [id number] VIRTROP I, HIGH SENSITIVITY 1 HOURon 36-50-1677PIIDJXIC I, HIGH BBGBLOJMOYH63 ng/LHigh<16 [facility] Medical CenterComment on above:Order Comment: Elevations of hs- Troponin may be due to causesother than myocardial ischemia.Recommend serial hs- Troponin testing be performed.For the initial evaluation and management of chestpain patients, refer to the algorithms linked below.Emergency Patient:[email or web address]= [email or web address]&d=[email or web address]=[email or web address]:[email or web address] =[email or web address]&n=[email or web address]&uh=acaeaPerformed By: #### TNIHS1 ####[facility] ([facility])[address] [place] [address].[place] [address] VIRBASIC METABOLIC PANLon 44-61-7616Iqspj gap [Moles/Vol]6 mmol/LNormal5-15ProPermian Regional Medical CenterComment on above:Performed By: #### SHEFALI 04520-0, BMP, 40830-1 ####[facility] ([id number])[address] [place] [address]Bjopbvi [Mass/Vol]8.4 mg/dLLow8.5-10.5Pro[facility] Centinela CampusComment on above:Performed By: #### SHEFALI, 42675-5, BMP, 44424-3 ####[facility] ([id number])[address] [place] [address] 25216Adqbdgar [Moles/Vol]108 mmol/WVivnsg47-849JclDklmgcPermian Regional Medical CenterComment on above:Performed By: #### SHEFALI 55514-7, BMP, 30958-9 ####[facility] ([id number])[address] [place] [address] 19154NL8 [Moles/Vol]24 mmol/BBuhrnk21-37XwoZnsego Fremont HospitalComment on above:Performed By: #### SHEFALI, 37511-7, DURAN, 48666-4 ####[facility] ([id number])[address] [place] [address] 21314Pkdnhmbqtg [Mass/Vol]1.25 mg/dLHigh0.40-1.00ProPermian Regional Medical CenterComment on above:Result Comment: METHOD TRACEABLE TO IDMS STANDARDPerformed By: #### SHEFALI 58653-7, DURAN, 54247-2 ####[facility] ([id number])[address] [place] [address] 73693TAK/1.73 sq M.predicted among non-blacks MDRD (S/P/Bld) [Vol rate/Area]42 mL/min/{1.73_m2}Low>59ProPermian Regional Medical CenterComment on above:Result Comment: Reported eGFR is based on the CKD-EPI 2020 equation that does not use a race coefficient.Performed By: #### SHEFALI, 29479-3, DURAN, 42063-8 ####[facility] ([id number])[address] [place] [address] 32975Vxgtvhe [Mass/Vol]134 mg/oOXdpf19-55IcqRapbgqPermian Regional Medical CenterComment on above:Performed By: #### SHEFALI, 52560-4, DURAN, 48006-9 ####[facility] ([id number])[address] [place] [address] 91528Opuauwjbh [Moles/Vol]3.5 mmol/LNormal3.5-5.0ProPermian Regional Medical CenterComment on above:Performed By: #### SHEFALI, 00668-8, DURAN, 47301-5 ####[facility] ([id number])[address] [place] [address], [place] [address]Nxgrmt [Moles/Vol]138 mmol/MFecomb265-242JctKmwccr [facility]remont HospitalComment on above:Performed By: #### SHEFALI, 31482-2, BMP, 00522-1 ####[facility] ([id number])[address] [place] [address], [place] [address]Bkjv nitrogen [Mass/Vol]19 mg/dLNormal5-27ProPermian Regional Medical CenterComment on above:Performed By: #### SHEFALI, 21347-8, BMP, 01418-1 ####[facility] ([id number])[address] [place] [address], [place] [address]UDB AND AUTO DIFFon 59-26-4641TZAYKROF BASOPHIL0.0 X10E9/L Normal0.0-0.2[facility], Centinela CampusComment on above:Performed By: #### SHEFALI, 49587-4, BMP, 50634-1 ####[facility] ([id number])[address] [place] [address] 19411RNUWMKFK NEUTROPHIL4.4 X10E9/LNormal1.5-6.6 ProMPioneers Memorial HospitalComup health system on above:Performed By: #### SHEFALI, 27426-0, BMP, 47061-9 ####[facility] ([id number])[address] [place] [address] 44087Dedsgifds/100 WBC (Bld)0.8 %NormalProPermian Regional Medical CenterComment on above:Performed By: #### SHEFALI, 20013-1, BMP, 68894-7 ####[facility] ([id number])[address] [place] [address] 49648Ssezjngihem (Bld) [#/Vol]0.1 10*3/uLNormal0.0-0.4ProMedica Blackstone HospitalComment on above:Performed By: #### SHEFALI, 36507-4, BMP, 02601-5 ####[facility] ([id number])[address] [place] [address] 70635Pilixnanefl/100 WBC (Bld)1.3 %NormalProPermian Regional Medical CenterComment on above:Performed By: #### SHEFALI, 83217-2, BMP, 73989-6 ####[facility] ([id number])[address] [place] [address] 06160Semrrxkumev distribution width (RBC) [Ratio]16.0 %High 11.5-15.0[facility]aritan Medical CenterComment on above:Performed By: #### SHEFALI, 63875-7, BMP, 65119-6 ####[facility] ([id number])[address] [place] [address] 25912Vzaxdmvhgq (Bld) [Volume fraction]24.7 %Low 35-47ProPermian Regional Medical CenterComment on above:Performed By: #### SHEFALI, 12445- 4, BMP, 67888-5 ####[facility] ([id number])[address] [place] [address] 20133Ymznpcbtil (Bld) [Mass/Vol]8.3 g/dLLow11.7-15.5 [facility] Medical CenterComment on above:Performed By: #### SHEFALI, 87534-1, BMP, 95278-1 ####[facility] ([id number])[address] [place] [address] 40453Itzsxgfzgom (Bld) [#/Vol]0.5 10*3/uLLow1.0-3.5 [facility] Medical CenterComment on above:Performed By: #### SHEFALI, 41627-1, BMP, 35007-6 ####[facility] ([id number])[address] [place] [address] 30714Nygxjuhgxhl/100 WBC (Bld)9.1 %NormalProPermian Regional Medical CenterComment on above:Performed By: #### CBCJacob, 40489-4, BMP, 39500-3 ####[facility] ([id number])[address] [place] [address] 89772CHI (RBC) [Entitic mass]28.7 iaHjhrkv53-22DfaHuokvqPermian Regional Medical CenterComment on above:Performed By: #### CBCJacob, 34841-5, BMP, 47255-3 ####[facility] ([id number])[address] [place] [address] 18418VIJM (RBC) [Mass/Vol]33.6 g/zWCmbatp86-86TicInjxicPermian Regional Medical CenterComment on above:Performed By: #### SHEFALI, 56035-3, BMP, 88912-8 ####[facility] ([id number])[address] [place] [address] 89464XEX (RBC) [Entitic vol]86 tHAuwdlq19-586AveBdmwkg [facility]remont HospitalComment on above:Performed By: #### CBCJacob, 74679-5, BMP, 37215-0 ####[facility] ([id number])[address] [place] [address] 38273Svipvenwj (Bld) [#/Vol]0.4 10*3/uLNormal0-0.9ProPermian Regional Medical CenterComment on above:Performed By: #### CBCJacob, 13332-9, BMP, 07477-4 ####[facility] ([id number])[address] [place] [address] 11661Nuohvsiga/100 WBC (Bld)8.1 %NormalProPomerene Hospital HospitalComment on above:Performed By: #### CBCJacob, 90677-4, BMP, 13189-2 ####[facility] ([id number])[address] [place] [address] 48403Fasawrvrbev/100 WBC (Bld)80.7 %NormalUniversity Hospitals Samaritan Medical CenterComment on above:Performed By: #### SHEFALI, 78681-5, BMP, 68432-2 ####[facility] ([id number])[address] [place] [address] 99392Dlmvyyhn mean volume (Bld) [Entitic vol]8.5 fLNormal7-12 [facility]itan Medical CenterComment on above:Performed By: #### SHEFALI, 56461-9, BMP, 00806-2 ####[facility] ([id number])[address] [place] [address] 03793Avkvywfer (Bld) [#/Vol]217 10*3/wDPkfncs052-206 [facility] Medical CenterComment on above:Performed By: #### SHEFALI, 34760-8, BMP, 71877-5 ####[facility] ([id number])[address] [place] [address] 90479CRK COUNT2.89 X10E12/LLow3.80-5.20[facility] Medical CenterComment on above:Performed By: #### SHEFALI, 85137-8, BMP, 21638-4 ####[facility] ([id number])[address] [place] [address] 11692QUZ (Bld) [#/Vol]5.5 10*3/uLNormal4.0-11.0[facility] Medical CenterComment on above:Performed By: #### SHEFALI, 95471-8, BMP, 93695-2 ####[facility] ([id number])[address] [place] [address] 57549QF CTA CHESTon 77-76-9814EA CTA CHESTCT CTA CHEST CT Pulmonary Angiogram Date:12/09/2024 History:Dyspnea elevated d-dimer Procedure: Multidetector CT Pulmonary Angiogram performed including 3-D reconstructions with contrast displayed on a PACS workstation and reviewed by the radiologist. Automatic exposure control (AEC)was utilized. Comparison:06/29/2024 Contrast:100 mL of Omnipaque 350 [...] by Lakhwinder Mckeon MD on 12/09/2024 12:28 PMNormalProPermian Regional Medical CenterNatriuretic peptide B [Mass/Vol]on 84-26-4024Fwolqzxswtl peptide B (Bld) [Mass/Vol]400 pg/mLHigh<100.0[facility] Medical CenterComment on above: Performed By: #### SHEFALI, 04405-6, DURAN, 66656-3 ####[facility] ([id number])[address] [place] [address] 33424Ubajawku I.cardiac High sensitivity method [Mass/Vol]on HOUR TROP I, HIGH YURRCJKLUIJ79 ng/LNormal<16ProPermian Regional Medical CenterComment on above:Performed By: #### 56789-5 ####[facility] ([id number])[address] [place] [address] 76520UMJQENZC I, HIGH OTQKJWYCVJG10 ng/LNormal<16 ProMPioneers Memorial HospitalComment on above:Performed By: #### SHEFALI, 26167-1, DURAN, 20794-3 ####[facility] ([id number])[address] [place] [address] 29180OR CHEST 2 VWSon 90-95-0862KI CHEST 2 VWSXR CHEST 2 VWS Chest 2 views History: Dyspnea, unspecified type Comparison: 12/21/2023 Findings: Chest 2 views. Stable cardiomediastinal silhouette. 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 No new focal opacity, effusion or pneumothorax. Impression: No evident acute cardiopulmonary process. Finalized by Juan Carlos Samson MD on 12/09/2024 8:55 AMNormalProPermian Regional Medical CenterBILIRUBIN,DIRECTon 87-63-3229Lgjodwrvq.direct [Mass/Vol]0.1 mg/dLNormal 0.0-0.4[facility]aritan Medical CenterComment on above:Performed By: #### 21454-4 #### [facility] ([id number]) [address] [place] [address] 28184 #### CBCA, HA1C, CMP, #### [facility] ([id number]) [address] [place], [place] [address]XGB AND AUTO DIFFon 62-29-0159SRMBNMJB BASOPHIL0.1 X10E9/LNormal 0.0-0.2POhioHealth Van Wert HospitalComment on above:Performed By: #### 73142-6 #### [facility] ([id number]) [address] [place] [address] 97410 #### CBCA, HA1C, CMP, 70962-9 #### [facility] ([id number]) [address] [place], [place] [address]KCLZWAYG NEUTROPHIL4.5 X10E9/LNormal1.5-6.6[facility]aritan Medical CenterComment on above:Performed By: #### 35394-7 #### [facility] ([id number]) [address] [place] [address] 07726 #### CBCA, HA1C, CMP, #### [facility] ([id number]) [address], [address] [place], [place] [address]Brhdjpsmb/100 WBC (Bld)1.2 %[facility] Comment on above:Performed By: #### 23139-0 #### [facility] ([id number]) [address] [place] [address] 28319 #### CBCA, HA1C, CMP, #### [facility] ([id number]) [address] [place], [place] [address]Oeviuexegln (Bld) [#/Vol]0.1 10*3/uLNormal0.0-0.4[facility] Medical CenterComment on above:Performed By: #### 83864-9 #### [facility] ([id number]) [address] [place] [address] 69961 #### CBCA, HA1C, CMP, #### [facility] ([id number]) [address] [place], [place] [address]Esambytesah/100 WBC (Bld)1.9 %[facility] Comment on above:Performed By: #### 93585-3 #### [facility] ([id number]) [address] [place] [address] 74838 #### CBCA, HA1C, CMP, #### [facility] ([id number]) [address], [address] [place], [place] [address]Krhahcepjbi distribution width (RBC) [Ratio]16.3 %High11.5-15.0 ProMPioneers Memorial HospitalComment on above:Performed By: #### 50701-3 #### [facility] ([id number]) [address] [place] [address] 53002 #### CBCA, HA1C, CMP, #### [facility] ([id number]) [address], [address] [place], [place] [address]Uqlfpixzpg (Bld) [Volume fraction]28.6 %Nee41-49OylErxaacPermian Regional Medical CenterComment on above:Performed By: #### 18682-5 #### [facility] ([id number]) [address] [place] [address] 58214 #### CBCA, HA1C, CMP, #### [facility] ([id number]) [address], [address] [place], [place] [address]Ymagqsclvv (Bld) [Mass/Vol]9.5 g/dLLow11.7-15.5POhioHealth Van Wert HospitalComment on above:Performed By: #### 78392-2 #### [facility] ([id number]) [address] [place] [address] 34090 #### CBCA, HA1C, CMP, #### [facility] ([id number]) [address], [address] [place], [place] [address]Ygpllvrqlsq (Bld) [#/Vol]0.8 10*3/uLLow1.0-3.5POhioHealth Van Wert HospitalComment on above:Performed By: #### 97873-0 #### [facility] ([id number]) [address] [place] [address] 83418 #### CBCA, HA1C, CMP, #### [facility] ([id number]) [address], [address] [place], [place] [address]Xpcsspaifot/100 WBC (Bld)13.2 %NormalUniversity Hospitals Samaritan Medical Center Comment on above:Performed By: #### 34335-7 #### [facility] ([id number]) [address] [place] [address] 18310 #### CBCA, HA1C, CMP, #### [facility] ([id number]) [address], [address] [place], [place] [address]XTR (RBC) [Entitic mass]28.1 akQerrlj63-56TmjRjwwftPermian Regional Medical CenterComment on above:Performed By: #### 44337-1 #### [facility] ([id number]) [address] [place] [address] 07559 #### CBCA, HA1C, CMP, #### [facility] ([id number]) [address], [address] [place], [place] [address]YBEI (RBC) [Mass/Vol]33.3 g/mDGshdqk87-19QlfIccrfrPermian Regional Medical CenterComment on above:Performed By: #### 12939-7 #### [facility] ([id number]) [address] [place] [address] 44673 #### CBCA, HA1C, CMP, #### [facility] ([id number]) [address], [address] [place], [place] [address]FTO (RBC) [Entitic vol]84 cZRfxmrb92-369VxkHbosxn [facility] HospitalComment on above:Performed By: #### 81705-7 #### [facility] ([id number]) [address] [place] [address] 52545 #### CBCA, HA1C, CMP, #### [facility] ([id number]) [address], [address] [place], [place] [address]Mjwxlkdvk (Bld) [#/Vol]0.5 10*3/uLNormal0-0.9ProPermian Regional Medical CenterComment on above:Performed By: #### 18463-9 #### [facility] ([id number]) [address] [place] [address] 03333 #### CBCA, HA1C, CMP, #### [facility] ([id number]) [address] [place] [address], [address] [place], [place] [address]Jjvptudhs/100 WBC (Bld)7.6 %[facility] Comment on above:Performed By: #### 52368-5 #### [facility] ([id number]) [address] [place] [address] 87634 #### CBCA, HA1C, CMP, #### [facility] ([id number]) [address] [place] [address], [address] [place], [place] [address]Fzfaxiuxrze/100 WBC (Bld)76.1 %NormalUniversity Hospitals Samaritan Medical Center Comment on above:Performed By: #### 19192-6 #### [facility] ([id number]) [address] [place] [address] 90706 #### CBCA, HA1C, CMP, #### [facility] ([id number]) [address] [place] [address], [address] [place], [place] [address]Hikqyvfz mean volume (Bld) [Entitic vol]8.6 fLNormal7-12 [facility], Centin[facility] CampusComment on above:Performed By: #### 61164-9 #### [facility] ([id number]) [address] [place] [address] 94925 #### CBCA, HA1C, CMP, #### [facility] ([id number]) [address] [place] [address], [address] [place], [place] [address]Pnpqhncdd (Bld) [#/Vol]247 10*3/aQDhfujc618-368XkxJdoqtg [facility] HospitalComment on above:Performed By: #### 47371-8 #### [facility] ([id number]) [address] [place] [address] 60793 #### CBCA, HA1C, CMP, #### [facility] ([id number]) [address] [place] [address], [address] [place], [place] [address]ZIF COUNT3.39 X10E12/LLow3.80-5.20[facility] Comment on above:Performed By: #### 23125-4 #### [facility] ([id number]) [address] [place] [address] 09373 #### CBCA, HA1C, CMP, 1969-02, #### [facility] ([id number]) [address] [place] [address], [address] [place], [place] [address]XQH (Bld) [#/Vol]5.9 10*3/uLNormal4.0-11.0[facility] Hospitals Samaritan Medical CenterComment on above:Performed By: #### 34278-7 #### [facility] ([id number]) [address] [place] [address] 76016 #### CBCA, HA1C, CMP, 1969-02, #### [facility] ([id number]) [address] [place] [address], [address] [place], [place] [address]RNAENESQAAIGB METABOLIC PANELon 67-17-2548Uspzfwg [Mass/Vol]3.6 g/dLNormal3.2-5.3POhioHealth Van Wert HospitalComment on above:Performed By: #### 26874-8 #### [facility] ([id number]) [address] [place] [address] 65292 #### CBCA, HA1C, CMP, 50204-2 #### [facility] ([id number]) [address] [place] [address], [address] [place], [place] [address]RQL [Catalytic activity/Vol]57 U/DSyywfa43-947DhqBtjwcbPermian Regional Medical CenterComment on above:Performed By: #### 43159-8 #### [facility] ([id number]) [address] [place] [address] 44186 #### CBCA, HA1C, CMP, #### [facility] ([id number]) [address] [place] [address], [address] [place] [address]IRX [Catalytic activity/Vol]9 U/LNormal0-31ProMedKaiser Foundation HospitalComment on above:Performed By: #### 82889-8 #### [facility] ([id number]) [address] [place] [address] 96954 #### CBCA, HA1C, CMP, #### [facility] ([id number]) [address] [place] [address], [address] [place] [address]Gkxrg gap [Moles/Vol]8 mmol/LNormal5-15ProPermian Regional Medical CenterComment on above:Performed By: #### 36437-1 #### [facility] ([id number]) [address] [place] [address] 28215 #### CBCA, HA1C, CMP, #### [facility] ([id number]) [address] [place] [address], [address] [place] [address] 545[address]PPX [Catalytic activity/Vol]18 U/LNormal0-41ProPermian Regional Medical CenterComment on above:Performed By: #### 48227-7 #### [facility] ([id number]) [address] [place] [address] 64218 #### CBCA, HA1C, CMP, #### [facility] ([id number]) [address] [place], [place] [address]Cusddfnio [Mass/Vol]0.6 mg/dLNormal0.3-1.2POhioHealth Van Wert HospitalComment on above:Performed By: #### 96143-8 #### [facility] ([id number]) [address] [place] [address] 22254 #### CBCA, HA1C, CMP, #### [facility] ([id number]) [address] [place], [place] [address]Qkdnrjz [Mass/Vol]8.7 mg/dLNormal8.5-10.5POhioHealth Van Wert HospitalComment on above:Performed By: #### 89700-1 #### [facility] ([id number]) [address] [place] [address] 76937 #### CBCA, HA1C, CMP, #### [facility] ([id number]) [address] [place] [address], [address] [place], [place] [address]Nwgekkiz [Moles/Vol]107 mmol/HMxrnss24-709AktXtddor [facility], Centin[facility] CampusComment on above:Performed By: #### 82546-5 #### [facility] ([id number]) [address] [place] [address] 40395 #### CBCA, HA1C, CMP, #### [facility] ([id number]) [address] [place] [address], [address] [place], [place] [address]MJ7 [Moles/Vol]26 mmol/ZCqkayw75-71NbpCjsblrOhioHealth Van Wert Hospital Comment on above:Performed By: #### 12905-0 #### [facility] ([id number]) [address] [place] [address] 77326 #### CBCA, HA1C, CMP, #### [facility] ([id number]) [address] [place], [place] [address]Msmvdqejdx [Mass/Vol]1.40 mg/dLHigh0.40-1.00University Hospitals Samaritan Medical CenterComment on above:Result Comment: METHOD TRACEABLE TO IDMS STANDARD Performed By: #### 80885-9 #### [facility] ([id number]) [address] [place] [address] 19685 #### CBCA, HA1C, CMP, #### [facility] ([id number]) [address] [place], [place] [address]HCU/1.73 sq M.predicted among non-blacks MDRD (S/P/Bld) [Vol rate/Area]37 mL/min/{1.73_m2}Low>59ProPermian Regional Medical CenterComment on above: Result Comment: Reported eGFR is based on the CKD-EPI 2020 equation that does not use a race coefficient.Performed By: #### 06898-1 #### [facility] ([id number]) [address] [place] [address] 19240 #### CBCA, HA1C, CMP, #### [facility] ([id number]) [address] [place], [place] [address]Ipegeud [Mass/Vol]88 mg/zYSzaxbk58-13TeyFhknwyUniversity Hospitals Samaritan Medical Center Comment on above:Performed By: #### 69965-4 #### [facility] ([id number]) [address] [place] [address] 99633 #### CBCA, HA1C, CMP, #### [facility] ([id number]) [address] [place], [place] [address]Fqbrvadjc [Moles/Vol]4.2 mmol/LNormal3.5-5.0ProPermian Regional Medical CenterComment on above:Performed By: #### 82289-5 #### [facility] ([id number]) [address] [place] [address] 20076 #### CBCA, HA1C, CMP, #### [facility] ([id number]) [address] [place], [place] [address]Uethcdf [Mass/Vol]6.4 g/dLNormal6.0-8.0ProPermian Regional Medical CenterComment on above:Performed By: #### 96112-3 #### [facility] ([id number]) [address] [place] [address] 29659 #### CBCA, HA1C, CMP, #### [facility] ([id number]) [address], [address] [place], [place] [address]Nsoubt [Moles/Vol]141 mmol/BViwpvc472-676GtkBmlrxr [facility] HospitalComment on above:Performed By: #### 79346-9 #### [facility] ([id number]) [address] [place] [address] 13248 #### CBCA, HA1C, CMP, #### [facility] ([id number]) [address] [place], [place] [address]Nujd nitrogen [Mass/Vol]20 mg/dLNormal5-27ProPermian Regional Medical CenterComment on above:Performed By: #### 52708-7 #### [facility] ([id number]) [address] [place] [address] #### CBCA, HA1C, CMP, #### [facility] ([id number]) [address] [place], [place] [address]Lstmcu D-dimer DDU (PPP) [Mass/Vol]on 12-08-2024D DQZMV5030 ng/mL DDUHigh<255Pro[facility], Centinela CampusComment on above:Result Comment: Results >=255ng/mL DDU: Results may be indicative of the presence of VTE. The use of the Wells score and further diagnostic tests should be considered. Elevated D-Dimer levels can also be associated with DIC, neoplasm, , trauma and liver disease. Elevated levels of rheumatoid factor may lead to an overestimation of the D-Dimer level.Performed By: #### 32445-6 #### [facility] ([id number]) [address] [place] [address], [place] [address] #### CBCA, HA1C, CMP, 1968-7, 21570-5 #### [facility] ([id number]) [address] [place] [address], [address] [place], [place] [address]Vyzmrw D-dimer FEU (PPP) [Mass/Vol]on 65-02-7543Wqivaa D-dimer DDU (PPP) [Mass/Vol]1419HighNILaFollette Medical CenterComment on above: Results >=255ng/mL DDU: Results may be indicative of the presence of VTE. The use of the Wells score and further diagnostic tests should be considered. Elevated D-Dimer levels can also be associated with DIC, neoplasm, , trauma and liver disease. Elevated levels of rheumatoid factor may lead to an overestimation of the D-Dimer [place] [address] The copy-to physician of this order is DOUGLAS Llanos ; , ; The ordering physician of this order is STACEY Guido Interpretation and review of laboratory resultsAbnoAscension Columbia Saint Mary's HospitalHGB A1C (GLYCO-HGB)on 20-66-2244Nfhoaio [Mass/Vol]97 mg/dLNormal [facility], Centinela CampusComment on above:Performed By: #### 45711-3 #### [facility] ([id number]) [address] [place] [address] #### CBCA, HA1C, CMP, 49136-8 #### [facility] ([id number]) [address] [place], [place] [address]YsU4z (Bld) [Mass fraction]5.0 %Normal4.4-5.6ProPermian Regional Medical CenterComment on above:Result Comment: NOTE ADA Guidelines Result HgbA1c Normal : less than 5.7 % Prediabetes : 5.7 % to 6.4 % Diabetes : > 6.4 % Use with caution in patients with abnormal hemoglobin variants as the half-life of red blood cells and in vivo glycation rates are affected.Performed By: #### 37536-5 #### [facility] ([id number]) [address] [place] [address] #### CBCA, HA1C, CMP, 26886-1 #### [facility] ([id number]) [address], [address] [place] [address]Hwnis 1995 panelon 85-00-7507Ydwmbuodhoe [Mass/Vol]123 mg/dLLow 150-200ProPermian Regional Medical CenterComment on above:Performed By: #### 94864-6 #### [facility] ([id number]) [address] [place] [address] #### CBCA, HA1C, CMP, 1 #### [facility] ([id number]) [address] [place], [place] [address]Qdamtggvbln in HDL [Mass/Vol]39 mg/dLLow>39ProPermian Regional Medical CenterComment on above:Result Comment: HDL <40 mg/dL - High Risk HDL > or = 40mg/dL- Desirable HDL >60 mg/dL - Negative Risk Performed By: #### 13482-3 #### [facility] ([id number]) [address] [place] [address] #### TREY MEEHAN, CMP, #### [facility] [facility] ([id number]) [address], [address] [place], [place] [address]Tgmciitxies in LDL [Mass/Vol]64 mg/dLNormal<130ProPermian Regional Medical CenterComment on above:Result Comment: LDL <100 mg/dL - Desirable LDL >160 mg/dL - High Risk Performed By: #### 12667-4 #### [facility] ([id number]) [address] [place] [address] #### TREY MEEHAN, CMP, #### [facility] ([id number]) [address], [address] [place], [place] [address]Mkmlmgrlmqp in VLDL [Mass/Vol]20 mg/dLNormal0-30ProPermian Regional Medical CenterComment on above:Performed By: #### 80221-8 #### [facility] ([id number]) [address] [place] [address] #### TREY MEEHAN, CMP, #### [facility] ([id number]) [address], [address] [place], [place] [address]UWQDWRJCDKZ:HDL3.4Vwnaff6.0-5.0ProPermian Regional Medical CenterComment on above:Performed By: ###Lorenzo 42013-2 #### [facility] ([id number]) [address] [place] [address], [place] [address] #### CBCA, HA1C, CMP, 97955-4 #### [facility] ([id number]) [address], [address] [place], [place] [address]Liwwaxsbeuph [Mass/Vol]100 mg/yGBvoljv76-117KdxMeqjrp [facility], Centinela CampusComment on above:Performed By: #### 60362-2 #### [facility] ([id number]) [address] [place] [address], [place] [address] #### CBCA, HA1C, CMP, 48230-7 #### [facility] ([id number]) [address], [address] [place], [place] [address]YKQMUQCid 00-75-5972Fncavyn [Mass/Vol]8.3 mg/dLLow8.5-10.5 [facility], Centinela CampusComment on above:Performed By: #### 78690-2 #### [facility] ([id number]) [address], [address] [place], [place] [address]BMV CBC WITH AUTO DIFFon 79-05-7910Tgnextsnwwc distribution width (RBC) [Ratio]17.3 %High11.8 - 14.4 %[facility] HealthcareHematocrit (Bld) [Volume fraction]34.3 %Low36.3 - 47.1 %[facility] HealthcareHemoglobin (Bld) [Mass/Vol]10.6 g/dLLow11.9 - 15.1 g/dLPRIMARY CHILDR[facility]'S [facility] HealthcareInterpretation and review of laboratory resultsAbnormalJefferson Memorial HospitalH (RBC) [Entitic mass]26.4 pg25.2 - 33.5 pgJefferson Memorial HospitalHC (RBC) [Mass/Vol]30.9 g/dL28.4 - 34.8 g/dLJefferson Memorial HospitalV (RBC) [Entitic vol]85.5 fL82.6 - 102.9 fLSt. Luke's HospitalPT NRBC VMJTBYOXX40.0 per 100 WBCNOPhelps HealthPT PLATELET [id number] Luke's North Hospital–Smithville MHPT WBC COUNT7.5NOSaint Luke's North Hospital–SmithvillePlatelet mean volume (Bld) [Entitic vol]10.1 fL 8.1 - 13.5 fLWestern Missouri Medical CenterRBC (Bld) [#/Vol]4.01 10*6/uL3.95 - 5.11 m/uLNOSaint Luke's North Hospital–SmithvilleOriginal Ordering Provider: MURIEL TORRESMUSC [facility] Basic Metabolic Panelon 72-44-1324Etkmz gap [Moles/Vol]9 mmol/L9 - 16 mmol/LBon Secours Mercy HealthCalcium [Mass/Vol]8.8 mg/dL8.6 - 10.4 mg/dLBon Secours Mercy HealthChloride [Moles/Vol]105 mmol/L98 - 107 mmol/LBon Secours Mercy HealthCO2 [Moles/Vol]26 mmol/L20 - 31 mmol/LBon Secours Mercy HealthCreatinine [Mass/Vol] 1.1 mg/dLHigh0.50 - 0.90 mg/dLBon Secours Mercy HealthEst, Glom Filt Pghr45Pxj- PINFBon Secours City Hospitaly HealthComment on above: These results are not intended [...] therapy that affects renal tubular secretion. Glucose [Mass/Vol]91 mg/dL74 - 99 mg/dLBon Secours Mercy HealthPotassium [Moles/Vol]4.6 mmol/L3.7 - 5.3 mmol/LBon Secours Mercy HealthSodium [Moles/Vol] 140 mmol/L136 - 145 mmol/LBon Secours Mercy HealthUrea nitrogen [Mass/Vol]20 mg/dL8 - 23 mg/dLBon Secours Mercy HealthUrea nitrogen/Creatinine [Mass ratio]18 mg/mg9 - 20Bon Secours Mercy HealthBasic Metabolic Profon 89-17-9544Xlgty gap [Moles/Vol]9 mmol/LNormal9-16Mercy Lubbock HospitalComment on above:Performed By: #### BNP, CBC, BMP #### [address] [place], [place] [address] [employer]munition [employer] Laborer: Renan Huerta MDBUN/CRE Ywfet64Vssikv1-13Hzhjl [facility] Comment on above:Performed By: #### BNP, CBC, BMP #### [address] [place], [facility] [employer] Laborer: TUAN Martinezalcium [Mass/Vol]8.8 mg/dLNormal8.6-10.4[facility] - AndersonComment on above:Performed By: #### BNP, CBC, BMP #### [address] [place], [facility] [employer] Laborer: TUAN Martinezhloride [Moles/Vol]105 mmol/VOszazr90-145Knolm Tiffin HospitalComment on above:Performed By: #### BNP, CBC, BMP #### [address] [place], [place] [address] [employer] Laborer: TUAN MartinezO2 [Moles/Vol]26 mmol/CIrlprm50-39CvwjnOur Lady Of Mercy Hospital - AndersonComment on above:Performed By: #### BNP, CBC, BMP #### [address] [place], [place] [address] [employer] Laborer: TUAN Martinezreatinine [Mass/Vol]1.1 mg/dLHigh0.50-0.90Our [facility] Hospital - AndersonComment on above:Performed By: #### BNP, CBC, BMP #### [address] [place] [address] [employer] Laborer: Renan Huerta MDGFR/1.73 sq M.predicted among non-blacks MDRD (S/P/Bld) [Vol rate/Area]51 mL/min/{1.73_m2}Low>60MerGlenbeigh Hospital HospitalComment on above:Result Comment: These results are not intended for [...] or following therapy that affects renal tubular secretion.Performed By: #### BNP CBC, BMP #### [address] [place] [address] [employer] Laborer: Renan Huerta MDGlucose [Mass/Vol]91 mg/hVDtwrrm81-35Rjneb Hartford HospitalComment on above:Performed By: #### CAILIN QUEZADA, BMP #### [address] [place] [address] [employer] Laborer: KAREEN Martinezotassium [Moles/Vol]4.6 mmol/LNormal3.7-5.3Mohiohealth o'bleness hospitaly Lubbock HospitalComment on above:Performed By: #### CAILIN QUEZADA, BMP #### [address] [place] [address] [employer] Laborer: BURKE Martinezodium [Moles/Vol]140 mmol/BGbbefe180-937KujcrOur Lady Of Mercy Hospital - AndersonComment on above:Performed By: #### CAILIN QUEZADA, BMP #### [address] [place], [facility] Ammunition [employer] Laborer: Renan Huerta MDUrea nitrogen [Mass/Vol]20 mg/dLNormal8-23MerRockville General HospitalComment on above:Performed By: #### PILAR CBC, BMP #### [address] [place] [address] [employer] Laborer: Renan Huerta MDBrain Natri. Peptideon 25-22-2633Zncctdgivpr peptide B (Bld) [Mass/Vol]3568 pg/mLHigh0-450Mercy Hartford HospitalComment on above:Performed By: #### BNP, CBC, BMP #### [facility] [address] [place] [address] [employer]munition [employer] Laborer: Renan Huerta MDBrain Natriuretic Peptideon 58-05-6228Muxekfwwxas peptide B (Bld) [Mass/Vol]3568 pg/mLHigh0 - 450 pg/mLLewisgale Hospital MontgomeryCBC on 66-99-0111Sdgalsohhge distribution width (RBC) [Ratio]17.3 %High11.8 - 14.4 % [facility] MontgomeryHematocrit (Bld) [Volume fraction]34.3 %Low36.3 - 47.1 % [facility] MontgomeryHemoglobin (Bld) [Mass/Vol]10.6 g/dLLow11.9 - 15.1 g/dL [facility] MontgomeryInterpretation and review of laboratory resultsAbnormal [facility] (RBC) [Entitic mass]26.4 pg25.2 - 33.5 pgCommunity Health SystemsHC (RBC) [Mass/Vol]30.9 g/dL28.4 - 34.8 g/dLBon [facility] Valley HospitalV (RBC) [Entitic vol]85.5 fL82.6 - 102.9 fLLewisgale Hospital Montgomery Nucleated RBC/100 WBC (Bld) [Ratio]0.0 %0.0 per 100 WBCLewisgale Hospital Montgomery Platelet mean volume (Bld) [Entitic vol]10.1 fL8.1 - 13.5 fLLewisgale Hospital MontgomeryPlatelets (Bld) [#/Vol]278 10*3/uLLewisgale Hospital MontgomeryRBC (Bld) [#/Vol]4.01 10*6/uL3.95 - 5.11 m/uLLewisgale Hospital MontgomeryWBC other (Bld) [#/Vol]7.5Bon [facility] City HospitalErythrocyte distribution width (RBC) [Ratio]17.3 %High11.8-14.4[facility] - AndersonComment on above:Performed By: #### BNP, CBC, BMP #### [address] [place], [facility] [employer] Laborer: Renan Huerta MDHematocrit (Bld) [Volume fraction]34.3 %Low 36.3-47.1MChildren's Hospital for Rehabilitation HospitalComment on above:Performed By: #### BNP, CBC, BMP #### [address] [place], [facility] Ammunition [employer] Laborer: Renan Huerta MDHemoglobin (Bld) [Mass/Vol]10.6 g/dLLow11.9-15.1 [facility] HospitalComment on above:Performed By: #### BNP, CBC, BMP #### [address] [place] [address] [employer] Laborer: SANDRA MartinezCH (RBC) [Entitic mass]26.4 hhMiafde60.2-33.5 [facility] HospitalComment on above:Performed By: #### BNP, CBC, BMP #### [address] [place] [address] Ammunition Assembly Laborer: AMINAH MartinezC (RBC) [Mass/Vol]30.9 g/bLVzsdcs63.4-34.8[facility] - AndersonComment on above:Performed By: #### BNP, CBC, BMP #### [address] [place] [address] Ammunition Assembly Laborer: SANDRA MartinezCV (RBC) [Entitic vol]85.5 wUHufhst84.6-102.9 [facility] HospitalComment on above:Performed By: #### BNP, CBC, BMP #### [address] [place] [address] Ammunition Assembly Laborer: Renan Huerta MDNRBC Automated0.0 per 100 WBCNormal0.0[facility] HospitalComment on above:Performed By: #### BNP, CBC, BMP #### [facility] [address] [place] [address] Ammunition Assembly Laborer: Sal Martinez mean volume (Bld) [Entitic vol]10.1 fL Normal8.1-13.5[facility] - AndersonComment on above:Performed By: #### BNP, CBC, BMP #### [facility] [address] [place] [address] Ammunition Assembly Laborer: Maggie Martinez (Bld) [#/Vol]278 10*3/aUHbkxkm906-406 [facility] - AndersonComment on above:Performed By: #### BNP, CBC, BMP #### [address] [place] [address] Ammunition Assembly Laborer: ROLY Martinez (Bld) [#/Vol]4.01 10*6/uLNormal3.95-5.11[facility] - AndersonComment on above:Performed By: #### BNP, CBC, BMP #### [address] [place] [address] Ammunition Assembly Laborer: MANDO Martinez (Bld) [#/Vol]7.5 10*3/uLNormal3.5-11.3MFirelands Regional Medical Center South CampusComment on above:Performed By: #### BNP, CBC, BMP #### [address] [place] [address] Ammunition Assembly Laborer: Jennie Martinez Panel Informationon 70-87-5848Sociydyiranjdh and review of laboratory resultsAbnormalInova Women's Hospital Onlyon 61-76-6865Famvst [id number] Leyla Lambert 1940 F Date Provider Department Center 07/04/2024 46220-ISPXYVHKJS SAMUELS [facility] No family history on fileNormalUniversity of Medical Arts Hospital36on 30-90-142459O spoke with patient. Patient states she does take this medication daily, and her PCP is Dr Douglas Will.[facility] Medical CenterCT CTA ABD AND PELVISon 67-35-4556LM CTA ABD AND PELVISCT CTA ABD AND PELVIS CLINICAL INFORMATION: Aortic dissection. Aortic aneurysm. COMPARISON: CT scan 12/20/2023. PROCEDURE: CT Angiography of the abdomen and pelvis obtained with IV contrast. Cross-sectional 3-D Maximum intensity projection reconstructions constructed under concurrent physician supervision on mainegeneral medical center workstation for evaluation of arterial structures. All CT scans at this facility dose mo dulation, iterative reconstruction, and/or weight based dosing when appropriate to reduce radiationdose to as low as reasonably achievable. FINDINGS: [...] by Shubham Larkin MD on 07/01/2024 8:52 [facility] HospitalCT CTA CHESTon 52-06-3509PC CTA CHESTCT CTA CHEST CT CTA CHEST HISTORY: Intramural [...] was utilized. All CT scans at this facilityuse dose modulation, iterative reconstruction, and/or weight based [...] main pulmonary arteries to suggest emboli. Ectasia ofthe main pulmonary artery measuring 3.3 cm which [...] D Leal DO on 06/30/2024 1:18 PM I, Urbano Pugh MD have personally reviewed the image(s) and agree with and/or edited the report Finalized by Urbano Pugh MD on 06/30/2024 2:16 PMNormalProHenry County Hospitalca [facility], Centin[facility] CampusRefillon [id number] Leyla Lambert 1940 F Date Provider Department Center 06/30/202420653-IBVBYXTMMEHNAZ HAYNES [facility] No family history on file Reason for Visit and Comments: Med Refill [[id number]]NormalUnSumma Health Akron CampusDEXA SCAN CENTRAL SKELETALon 88-53-5129LTGF SCAN CENTRAL SKELETALDEXA SCAN CENTRAL SKELETAL CLINICAL INFORMATION: 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 The current National Osteoporosis Foundation guide recommends treating patients with FRAX ten year risk scores of greater than or equal to 3% for hip fracture or greater than or equal to 20% for major osteoporotic fracture, to reduce their fracture risk. Finalized by Lloyd Davis MD on 06/16/2024 9:[address] [id number] not under my care.[facility] Medical CenterRefillon [id number] Leyla Lambert 1940 F Date Provider Department Center 06/06/202418285-ECZOJDZAMEHNAZ HAYNES [facility] No family history on file Reason for Visit and Comments: Med Refill [[id number]]Normal[place] [address]on [facility] patientNormalUniversity [facility], AvonNo Panel Informationon 04-45-0192Wmze of biopsy: punch Informed consent: discussed and [...] 2 Specimen sent for: H&E Photo taken [facility] panel Auto (Bld)on 04-01-2024 Erythrocyte distribution width (RBC) [Ratio]14.9 %High11.5 - 14.5 %Shel[facility] Memorial HospitalHematocrit (Bld) [Volume fraction]31.4 %Low36.0 - 46.0 % [facility] HospitalHemoglobin (Bld) [Mass/Vol]9.4 g/dLLow12.0 - 16.0 g/dLUnLicking Memorial HospitalInterpretation and review of laboratory resultsAbnormalUniKettering Health Behavioral Medical CenterH (RBC) [Entitic mass]26.6 pg26.0 - 34.0 pgUnKeenan Private HospitalHC (RBC) [Mass/Vol] 29.9 g/dLLow32.0 - 36.0 g/dLUnKeenan Private HospitalV (RBC) [Entitic vol]89 fL80 - 100 fLUniMercy Health Allen HospitalNucleated RBC/100 WBC (Bld) [Ratio]0.0 %S[facility] Memorial HospitalPlatelets (Bld) [#/Vol]245 10*3/uL [facility] Memorial HospitalRBC (Bld) [#/Vol]3.54 10*6/[facility] Southeast OhioWBC (Bld) [#/Vol]5.0 10*3/[facility] CampusUnLicking Memorial HospitalErythrocyte distribution width (RBC) [Ratio]14.9 %High11.5-14.5UnAvita Health System Ontario HospitalComment on above:Performed By: #### 34374-6 #### LARISA Dominguez ([id number]) [facility] ([facility]) [address] [place], [place] [address]Kikdkytyiw (Bld) [Volume fraction]31.4 %Low36.0-46.0UnAvita Health System Ontario HospitalComment on above:Performed By: #### 57089-6 #### LARISA Dominguez ([id number]) [facility] ([facility]) [address] [place], [place] [address]Tclllxvgsk (Bld) [Mass/Vol]9.4 g/dLLow12.0-16.0UnAvita Health System Ontario HospitalComment on above:Performed By: #### 92603-9 #### LARISA Dominguez ([id number]) [facility] ([facility]) [address] [place] [place], [place] [address]TDS (RBC) [Entitic mass]26.6 dlVwvsle77.0-34.0UnAvita Health System Ontario HospitalComment on above:Performed By: #### 79237-8 #### LARISA Dominguez ([id number]) [facility] ([facility]) [address]ANNCO[address] [facility] [place] [place], [place] [address]ZQUN (RBC) [Mass/Vol]29.9 g/dLLow32.0-36.0South[facility] General Health CenterComment on above:Performed By: #### 88570-6 #### LARISA Dominguez ([id number]) [facility] ([facility]) [address] [facility] [place] [place], [place] [address]GLF (RBC) [Entitic vol]89 lJDdekpc46-901CcipplxuiwSouthwest General Health CenterComment on above:Performed By: #### 09980-7 #### LARISA Dominguez ([id number]) [facility] ([facility]) [address] [place] [address]Cnkmcscap RBC/100 WBC (Bld) [Ratio]0.0 /100 WBCsNormal0.0-0.0 [facility] General Health CenterComment on above:Performed By: #### 35456-6 #### LARISA Dominguez ([id number]) [facility] ([facility]) [address] [place] [address]Ymxsvtwvs (Bld) [#/Vol]245 x10*3/nFCveqxj632-312BgexxmammhAvita Health System Ontario HospitalComment on above:Performed By: #### 57080-1 #### LARISA Dominguez ([id number]) [facility] ([facility]) [address] [place] [address]JYZ (Bld) [#/Vol]3.54 x10*6/uLLow4.00-5.20UnAvita Health System Ontario HospitalComment on above:Performed By: #### 25958-5 #### LARSIA Dominguez ([id number]) [facility] ([facility]) [address] [place] [address]NPI (Bld) [#/Vol]5.0 x10*3/uLNormal4.4-11.3South[facility] General Health CenterComment on above:Performed By: #### 54592-7 #### LARISA Dominguez (84042) [facility] ([facility]) [address] [place] [address]Rpcsufvjwly 95-50-2343Xfwnmakgu [Mass/Vol]2.70 mg/dLHigh1.60 - 2.40 mg/dLShelby Memorial HospitalMagnesium [Mass/Vol]2.70 mg/dLHigh 1.60-2.40UnAvita Health System Ontario HospitalComment on above:Performed By: #### 84512-2 #### LARISA Dominguez ([id number]) [facility] ([facility]) [address] [place] [address]Rk Panel Informationon 52-92-0757Ezowcomsixfnwg and review of laboratory resultsAbnoACMC Healthcare SystemRF Esophagus Views W barium contrast Kiana . Unremarkable fluoroscopic esophagram within limits of patient's [...] Manisha Dillon 04/01/2024 11:56 AM Dictation workstation: [id number] By: Manisha Dillon, STUDY: [place] GI ESOPHAGRAM; 04/01/2024 10:35 am INDICATION: Signs/Symptoms:dysphagia. Patient is recent status post EGD on 03/31/2024. COMPARISON: None. ACCESSION NUMBER(S): [id number] ORDERING CLINICIAN: DONNIE THORPE TECHNIQUE: Initial black and white printer operator radiograph of the esophagus was obtained. Multiple fluoroscopic spot images were obtained after the administration of 150 mL of thin barium. 30 mL of Gastrografin was used initially to exclude leak which was then followed by ingestion of thin barium. The patient tolerated the procedure well. The technique is slightly limited due to limitation in patient positioning from patient's clinical status. FINDINGS: Initial black and white printer operator image demonstrates left chest wall pacemaker that [...] in place projecting over the body. [facility] MMODALManisha Dillon MD - 04/01/2024 Interpreted By: Manisha Dillon, STUDY: [place] GI ESOPHAGRAM; 04/01/2024 10:35 am INDICATION: Signs/Symptoms:dysphagia. Patient is recent status post EGD on 03/31/2024. COMPARISON: None. ACCESSION NUMBER(S): [id number] ORDERING CLINICIAN: DONNIE Mcnulty'GEETA TECHNIQUE: Initial black and white printer operator radiograph of the esophagus was obtained. Multiple fluoroscopic spot images were obtained after the administration of 150 mL of thin barium. 30 mL of Gastrografin was used initially to exclude leak which was then followed by ingestion of thin barium. The patient tolerated the procedure well. The technique is slightly limited due to limitation in patient positioning from patient's clinical status. FINDINGS: Initial black and white printer operator image demonstrates left chest wall pacemaker that [...] Manisha Dillon 04/01/2024 11:56 AM Dictation workstation: [id number] [facility] Work Phone: Radiology Study observation (narrative)[facility] Work Phone: RF Esophagus Views W barium contrast POOrdered By: Manisha Dillon on 54-02-5523RiptdlgmqmLicking Memorial Hospital Work Phone: Renal function 2000 panelon 32-07-4673Erwlfwg BCP dye [Mass/Vol]3.6 g/dL3.4 - 5.0 g/dLUnLicking Memorial HospitalAnion gap [Moles/Vol]10 mmol/L10 - 20 mmol/LUnLicking Memorial HospitalCalcium [Mass/Vol]7.7 mg/dLLow8.6 - 10.3 mg/dLUnLicking Memorial HospitalChloride [Moles/Vol]106 mmol/L98 - 107 mmol/[facility] CenterCO2 [Moles/Vol]26 mmol/L21 - 32 mmol/[facility] Medical CenterCreatinine [Mass/Vol]0.91 mg/dL0.50 - 1.05 mg/dLShelby Memorial HospitalGFR/1.73 sq M.predicted among non-blacks MDRD (S/P/Bld) [Vol rate/Area]62 mL/min/{1.73_m2}- A[facility] BALDWINniMercy Health Allen HospitalComment on above: Calculations of estimated GFR are performed using the 2020 CKD-EPI Study Refit equation without therace variable for the IDMS-Traceable creatinine methods. https://jasn.asnjournals.org/content/early/ASN.4418011531 Glucose [Mass/Vol]93 mg/dL74 - 99 mg/dLUnLicking Memorial Hospital Phosphate [Mass/Vol]2.4 mg/dLLow2.5 - 4.9 mg/dLUnLicking Memorial Hospital Comment on above:The performance characteristics of phosphorus testing in heparinized plasma have been validated by the individual laboratory site where testing is performed. Testing on heparinized plasma is not approved by the FDA; however, such approval is not necessary.Potassium [Moles/Vol]3.9 mmol/L3.5 - 5.3 mmol/[facility] Medical CenterSodium [Moles/Vol]138 mmol/L136 - 145 mmol/[facility] Medical CenterUrea nitrogen [Mass/Vol]34 mg/dLHigh6 - 23 mg/dLUnLicking Memorial HospitalAlbumin BCP dye [Mass/Vol]3.6 g/dL Normal3.4-5.0UnAvita Health System Ontario HospitalComment on above: Performed By: #### 66652-1 #### LARISA Dominguez ([id number]) [facility] ([facility]) [address] [place], [place] [address]Gchha gap [Moles/Vol]10 mmol/KMobqyq10-01UwgfpsjvpxAvita Health System Ontario HospitalComment on above:Performed By: #### 86029-0 #### LARISA Dominguez ([id number]) [facility] ([facility]) [address] [place] [address]Nripwzk [Mass/Vol]7.7 mg/dLLow8.6-10.3Southwest General Health CenterComment on above:Performed By: #### 12121-3 #### LARISA Dominguez (43420) [facility] ([facility]) [address] [place] [address]Kyihkgcn [Moles/Vol]106 mmol/SFfwynl08-354AlwhjeaeudAvita Health System Ontario HospitalComment on above:Performed By: #### 35047-2 #### LARISA Dominguez (34227) [facility] ([facility]) [address] [place] [address]JA6 [Moles/Vol]26 mmol/DAnmqnq38-13PckltthvawAvita Health System Ontario HospitalComment on above:Performed By: #### 76280-2 #### LARISA Dominguez ([id number]) [facility] ([facility]) [address] [place], [place] [address]Kxpzcgoyyn [Mass/Vol]0.91 mg/dLNormal0.50-1.05UnAvita Health System Ontario HospitalComment on above:Performed By: #### 30610-1 #### LARISA Dominguez ([id number]) [facility] ([facility]) [address] [place], [place] [address]Iiikapybmb filtration rate/1.73 sq M.pmoaaawfg97 mL/min/1.73m*2 Normal>60UnAvita Health System Ontario HospitalComment on above:Result Comment: Calculations of estimated GFR are performed using the 2020 CKD-EPI Study Refit equation without the race variable for the IDMS-Traceable creatinine methods. https://jasn.asnjournals.org/content//ASN.0081639525Xgkicghzd By: #### 85040-7 #### LARISA Dominguez (92683) [facility] ([facility]) [address] [place], [place] [address]Vepslsl [Mass/Vol]93 mg/yHXmylck45-51QxhyojbpjcAvita Health System Ontario HospitalComment on above:Performed By: #### 59447-4 #### LARISA Dominguez ([id number]) [facility] ([facility]) [address] [place] [address]Isnsqsitb [Mass/Vol]2.4 mg/dLLow2.5-4.9South[facility] General Health CenterComment on above:Result Comment: The performance characteristics of phosphorus testing in heparinized plasma have been validated by the individual laboratory site where testing is performed. Testing on heparinizedplasma is not approved by the FDA; however, such approval is not necessary.Performed By: #### 09338-9 #### LARISA Dominguez ([id number]) [facility] ([facility]) [address] [place] [address]Gafhjwykj [Moles/Vol]3.9 mmol/LNormal3.5-5.3UnAvita Health System Ontario HospitalComment on above:Performed By: #### 24818-0 #### LARISA Dominguez ([id number]) [facility] ([facility]) [address] [place] [address]Fgfciq [Moles/Vol]138 mmol/QHgalbf153-523YawdtaqpueAvita Health System Ontario HospitalComment on above:Performed By: #### 35604-5 #### LARISA Dominguez ([id number]) [facility] ([facility]) [address] [place], [place] [address]Pbst nitrogen [Mass/Vol]34 mg/dLHigh6-23UnAvita Health System Ontario HospitalComment on above:Performed By: #### 08348-4 #### LARISA Dominguez ([id number]) [facility] ([facility]) [address] [place], [place] [address]Pylih type and Indirect antibody screen panel (Bld)on 16-13-7747BZS group Nom (Bld)AUnLicking Memorial HospitalBlalomere health hospital group antibody screen QlNegativeAultman Hospital Ag Ql (Bld)Positive [facility] HospitalUnLicking Memorial HospitalABO group Nom (Bld)ANormalUniMetroHealth Main Campus Medical CenterComment on above:Performed By: #### 18600-1 ####LARISA Dominguez ([id number])[facility] (GEABB)[address] [place] [address] USBlood group antibody screen QlNegativeCedar County Memorial Hospitalal Southwest General Health CenterComment on above:Performed By: #### 15550-8 ####LARISA Dominguez ([id number])[facility] (GEABB)[address] [place] [address] USD Ag Ql (Bld)PositiveNoHolzer Health SystemComment on above:Performed By: #### 03569-3 ####LARISA Dominguez ([id number])[facility] (GEABB)[address] [place] [address] USCBC panel Auto (Bld)on 44-69-3199Fktzfjvxsuz distribution width (RBC) [Ratio]15.1 %High 11.5 - 14.5 %[facility] HospitalHematocrit (Bld) [Volume fraction] 30.4 %Low36.0 - 46.0 %[facility] Memorial HospitalHemoglobin (Bld) [Mass/Vol]9.3 g/dLLow12.0 - 16.0 g/dLShelby Memorial Hospital Interpretation and review of laboratory resultsAbnoParkview Health Bryan Hospital (RBC) [Entitic mass]26.9 pg26.0 - 34.0 pgShelby Memorial HospitalMCHC (RBC) [Mass/Vol]30.6 g/dLLow32.0 - 36.0 g/dLCincinnati VA Medical CenterV (RBC) [Entitic vol]88 fL80 - 100 fLUniMercy Health Allen HospitalNucleated RBC/100 WBC (Bld) [Ratio]0.0 %[facility] Memorial HospitalPlatelets (Bld) [#/Vol]273 10*3/[facility] Ak[facility] CampusRBC (Bld) [#/Vol]3.46 10*6/[facility] Southeast OhioWBC (Bld) [#/Vol] 5.6 10*3/[facility] Health Akron CampusUnLicking Memorial Hospital Erythrocyte distribution width (RBC) [Ratio]15.1 %High11.5-14.5UnAvita Health System Ontario HospitalComment on above:Performed By: #### 44518-5 ####LARISA Dominguez ([id number])[facility] ([facility])[address] [place] [address]Znviaxrauq (Bld) [Volume fraction]30.4 %Low36.0-46.0UnAvita Health System Ontario HospitalComment on above:Performed By: #### 40490-7 ####LRAISA Dominguez ([id number])[facility] ([facility])[address] [place] [address]Ojekxiqrti (Bld) [Mass/Vol]9.3 g/dLLow12.0-16.0UnAvita Health System Ontario HospitalComment on above:Performed By: #### 88465-9 ####LARISA Domignuez ([id number])[facility] ([facility])[address] [place] [place] [address]DLS (RBC) [Entitic mass]26.9 zhMtlezz90.0-34.0UnAvita Health System Ontario HospitalComment on above:Performed By: #### 14659-2 ####LARISA Dominguez ([id number])[facility] ([facility])[address] [place] [address]ZWNQ (RBC) [Mass/Vol]30.6 g/dLLow32.0-36.0UnAvita Health System Ontario HospitalComment on above:Performed By: #### 51970-0 ####LARISA Dominguez ([id number])[facility] ([facility])[address] [place] [address]JNM (RBC) [Entitic vol]88 lERcpmis22-311VovqecbfjtSouthwest General Health CenterComment on above:Performed By: #### 63645-4 ####LARISA Dominguez ([id number])[facility] ([facility])[address] [place] [address]Bkmsrmlwy RBC/100 WBC (Bld) [Ratio]0.0 /100 WBCsNormal0.0-0.0Southwest General Health CenterComment on above:Performed By: #### 34777-9 ####LARISA ROYCHRIS Dominguez ([id number])[facility] ([facility])[address] [place], [place] [address]Gxpeiliqt (Bld) [#/Vol]273 x10*3/xSJrgwfy846-737YvjnqnuptaAvita Health System Ontario HospitalComment on above:Performed By: #### 21461-6 ####LARISA ORYCHRIS Dominguez ([id number])[facility] ([facility])[address] [place], [place] [address]FGU (Bld) [#/Vol]3.46 x10*6/uLLow4.00-5.20UnAvita Health System Ontario Hospital Comment on above:Performed By: #### 29447-6 ####LARISA Dominguez ([id number])[facility] ([facility])[address] [place], [place] [address]NTQ (Bld) [#/Vol]5.6 x10*3/uLNormal4.4-11.3Southwest General Health CenterComment on above:Performed By: #### 10452-7 ####LARISA Dominguez ([id number])[facility] ([facility])[address] [place], [place] [address]NWKrt 03-31-2024 EsophagogastroduodenoscopyTable formatting from the original result was not [...] Julio MD MPH 03/31/2024 0831 Procedure Location [place] [address] [address] [facility] [address] Referring Provider Rock Alanis MD Procedure Provider Nolan Julio MD MPHNormMercy Health Allen HospitalEGD Study observation Narrativeon 22-42-3235Uzlgx formatting from the original result was not [...] Julio MD MPH 03/31/2024 0831 Procedure Location [place] [address] [place] [id number] Referring Provider Rock Alanis MD Procedure Provider Nolan Julio MD MPH [facility] Work Phone: Radiology Study observation (narrative)[facility] Work Phone: EGD Study observation NarrativeOrdered By: Nolan Julio on 08-15-8881XjrirxeuntLicking Memorial Hospital Work Phone: fl GI ESOPHAGRAMon [phone] GI ESOPHAGRAM Interpreted By: Manisha Dillon, STUDY: [place] GI ESOPHAGRAM; 04/01/2024 10:35 am INDICATION: Signs/Symptoms:dysphagia. Patient is recent status post EGD on 03/31/2024. COMPARISON: None. ACCESSION NUMBER(S): [id number] ORDERING CLINICIAN: DONNIE THORPE TECHNIQUE: Initial black and white printer operator radiograph of the esophagus was obtained. Multiple fluoroscopic spot images were obtained after the administration of 150 mL of thin barium. 30 mL of Gastrografin was used initially to exclude leak which was then followed by ingestion of thin barium. The patient tolerated the procedure well. The technique is slightly limited due to limitation in patient positioning from patient's clinical status. FINDINGS: Initial black and white printer operator image demonstrates left chest wall pacemaker that [...] Manisha Dillon 04/01/2024 11:56 AM Dictation workstation: [id number] Community HospitalMagnesiumon 26-88-2980Wkeamcxpq [Mass/Vol]2.81 mg/dLHigh1.60 - 2.40 mg/dL [facility] Memorial HospitalMagnesium [Mass/Vol]2.81 mg/dLHigh1.60-2.40 Southwest General Health CenterComment on above:Performed By: #### 39082-6 ####LARISA Dominguez ([id number])[facility] ([facility])[address] [place], [place] [address]Ls Panel Informationon 76-58-3932Weufiungnsiqcz and review of laboratory resultsAbnoRegency Hospital CompanyUnLicking Memorial HospitalPT and aPTT panel Coag (PPP)on 83-64-4210nORQ Coag (PPP) [Time]29 s [facility] HospitalINR Coag (PPP) [Relative time]1.0 {INR}0.9 - 1.1UnLicking Memorial HospitalInterpretation and review of laboratory resultsOhioHealth Berger HospitalPT Coag (PPP) [Time]11.1 s [facility] HospitalThe APTT is no longer used for monitoring Unfractionated Heparin Therapy. For monitoring Heparin Therapy, use the Heparin Assay.Cherrington HospitalaPTT Coag (PPP) [Time]29 bXujcze50-15DqnqumtdutAvita Health System Ontario Hospital Comment on above:Order Comment: The APTT is no longer used for monitoring Unfractionated Heparin Therapy. For monitoring Heparin Therapy, use the Heparin Assay.Performed By: #### 81251-1 ####LARISA Dominguez ([id number])[facility] ([facility])[address] [place], [place] [address]BOL Coag (PPP) [Relative time]1.0 Normal0.9-1.1UnAvita Health System Ontario HospitalComment on above:Order Comment: The APTT is no longer used for monitoring Unfractionated Heparin Therapy. For monitoring Heparin Therapy, use the Heparin Assay.Performed By: #### 16744-8 ####LARISA Dominguez ([id number])[facility] ([facility])[address] [place], [place] [address]WS Coag (PPP) [Time]11.1 sNormal9.8-12.8UnAvita Health System Ontario HospitalComment on above:Order Comment: The APTT is no longer used for monitoring Unfractionated Heparin Therapy. For monitoring Heparin Therapy, use the Heparin Assay.Performed By: #### 51564-2 ####LARISA Dominguez ([id number])[facility] ([facility])[address] [place], [place] [address]Dceka function 2000 panelon 91-45-3007Jfiopxx BCP dye [Mass/Vol]3.4 g/dL3.4 - 5.0 g/dLUnLicking Memorial HospitalAnion gap [Moles/Vol]10 mmol/L10 - 20 mmol/[facility] Medical CenterCalcium [Mass/Vol]7.5 mg/dLLow8.6 - 10.3 mg/dLUnLicking Memorial HospitalChloride [Moles/Vol]106 mmol/L98 - 107 mmol/[facility] Medical CenterCO2 [Moles/Vol]27 mmol/L21 - 32 mmol/[facility] CenterCreatinine [Mass/Vol]1.04 mg/dL0.50 - 1.05 mg/dLUnLicking Memorial HospitalGFR/1.73 sq M.predicted among non- blacks MDRD (S/P/Bld) [Vol rate/Area]53 mL/min/{1.73_m2}Low- PINFUniMercy Health Allen HospitalComment on above:Calculations of estimated GFR are performed using the 2020 CKD-EPI Study Refit equation without therace variable for the IDMS-Traceable creatinine methods. https://jasn.asnjournals.org/content//ASN.5132899810 Glucose [Mass/Vol]93 mg/dL74 - 99 mg/dLShelby Memorial Hospital Phosphate [Mass/Vol]2.5 mg/dL2.5 - 4.9 mg/dLUnLicking Memorial Hospital Comment on above:The performance characteristics of phosphorus testing in heparinized plasma have been validated by the individual laboratory site where testing is performed. Testing on heparinized plasma is not approved by the FDA; however, such approval is not necessary.Potassium [Moles/Vol]3.9 mmol/L3.5 - 5.3 mmol/[facility] Medical CenterSodium [Moles/Vol]139 mmol/L136 - 145 mmol/[facility] Medical CenterUrea nitrogen [Mass/Vol]40 mg/dLHigh6 - 23 mg/dLUnLicking Memorial HospitalAlbumin BCP dye [Mass/Vol]3.4 g/dL Normal3.4-5.0UnAvita Health System Ontario HospitalComment on above: Performed By: #### 68552-6 ####LARISA Dominguez ([id number])[facility] ([facility])[address], [place] [address]Ikyiv gap [Moles/Vol]10 mmol/TBkezmd83-80 [facility] Health CenterComment on above:Performed By: #### 20097-6 ####LARISA Dominguez ([id number])[facility] ([facility])[address], [place] [address]Euubqmq [Mass/Vol]7.5 mg/dLLow8.6-10.3UnAvita Health System Ontario HospitalComment on above:Performed By: #### 29837-9 ####LARISA Dominguez ([id number])[facility] ([facility])[address], [place] [address]Xybigdry [Moles/Vol]106 mmol/CZygetv29-942ZhmhwvtvkyAvita Health System Ontario HospitalComment on above:Performed By: #### 89230-1 ####LARISA Dominguez ([id number])[facility] ([facility])[address] [facility] [address], [place] [address]DU0 [Moles/Vol]27 mmol/PFwwwkb83-22MtxkcbunreAvita Health System Ontario HospitalComment on above:Performed By: #### 30685-7 ####LARISA Dominguez ([id number])[facility] ([facility])[address] [facility] [address], [place] [address]Wlhqolvenj [Mass/Vol]1.04 mg/dL Normal0.50-1.05UnAvita Health System Ontario HospitalComment on above: Performed By: #### 76747-2 ####LARISA Dominguez ([id number])[facility] ([facility])[address] [facility] [address], [place] [address]Bqreffzwtk filtration rate/1.73 sq M.rgzzqlyoa69 mL/min/1.73m*2Low>60UnAvita Health System Ontario Hospital Comment on above:Result Comment: Calculations of estimated GFR are performed using the 2020 CKD-EPI Study Refit equation without the race variable for the IDMS-Traceable creatinine methods. https://jasn.asnjournals.org/content//ASN.6728387580Otxmhbfiy By: #### 87012-1 ####LARISA Dominguez ([id number])[facility] ([facility])[address], [place] [address]Nvtymrd [Mass/Vol]93 mg/qGGalwwr41-40SrusicczoxAvita Health System Ontario HospitalComment on above:Performed By: #### 41435-6 ####LARISA Dominguez ([id number])[facility] ([facility])[address] [place], [place] [address]Zdrxsxgrg [Mass/Vol]2.5 mg/dLNormal2.5-4.9UnAvita Health System Ontario HospitalComment on above:Result Comment: The performance characteristics of phosphorus testing in heparinized plasma have been validated by the individual laboratory site where testing is performed. Testing on heparinizedplasma is not approved by the FDA; however, such approval is not necessary.Performed By: #### 05950-6 ####LARISA Dominguez ([id number])[facility] ([facility])[address] [place], [place] [address]Ruurjwlds [Moles/Vol]3.9 mmol/L Normal3.5-5.3[facility] General Health CenterComment on above: Performed By: #### 98024-1 ####LARISA NATALIYA Dominguez ([id number])[facility] ([facility])[address] [place], [place] [address]Oexitm [Moles/Vol]139 mmol/LPtmebj734-947 [facility] Health CenterComment on above:Performed By: #### 09484-2 ####LARISA NATALIYA Dominguez ([id number])[facility] ([facility])[address]KSAN[address]WRIGHT[facility]PAT[facility] [place], [place] [address]Ckup nitrogen [Mass/Vol]40 mg/dLHigh6-23UnAvita Health System Ontario HospitalComment on above:Performed By: #### 79086-5 ####LARISA NATALIYA Dominguez ([id number])[facility] ([facility])[address] [place] [place], [place] [address]Uqirgeep pathology studyon 17-36-0543Bwywpcqo pathology studyPathology report.total SEE COMMENT Surgical Pathology Case: [id number] Authorizing Provider: Nolan Julio MD [facility] Collected: 03/31/2024 0831 Ordering Location: [facility] 1 Received: 03/31/2024 1003 [facility] Pathologist: Terry Matos MD Specimen: FOREIGN BODY(S), FOREIGN BODY IN STOMACH Path report.final diagnosis SEE COMMENT A: SPECIMEN LABELED FOREIGN BODY IN STOMACH - FOR GROSS EXAMINATION ONLY Laboratory comment By the signature on this report, the individual or group listed as making the Final Interpretation/Diagnosis certifies that they have reviewed this case. Path report.gross observation SEE COMMENT A: Received in formalin, labeled with the patient's name and hospital number and foreign body in stomach , is a cylindrical segment of metal material measuring 2.2 cm in length and 0.2 cm in diameter. Photographs have been taken. The specimen is for gross examination only. RMPNormalSouthwest General Health CenterCBC panel Auto (Bld)on 70-51-1551Hyaisdavtxo distribution width (RBC) [Ratio]15.0 %High11.5 - 14.5 % [facility] HospitalHematocrit (Bld) [Volume fraction]31.2 %Low36.0 - 46.0 %[facility] HospitalHemoglobin (Bld) [Mass/Vol]9.7 g/dLLow 12.0 - 16.0 g/dLUnLicking Memorial HospitalInterpretation and review of laboratory resultsAbnormMercy Health St. Rita's Medical Center (RBC) [Entitic mass]27.0 pg26.0 - 34.0 pgCincinnati VA Medical CenterHC (RBC) [Mass/Vol] 31.1 g/dLLow32.0 - 36.0 g/dLCincinnati VA Medical CenterV (RBC) [Entitic vol]87 fL80 - 100 fLUniMercy Health Allen HospitalNucleated RBC/100 WBC (Bld) [Ratio]0.0 %[facility] Memorial HospitalPlatelets (Bld) [#/Vol]285 10*3/uL [facility] HospitalRB (Bld) [#/Vol]3.59 10*6/[facility] Hospital [facility] Southeast OhioWBC (Bld) [#/Vol]5.9 10*3/[facility] CampusUnLicking Memorial HospitalErythrocyte distribution width (RBC) [Ratio]15.0 %High11.5-14.5UnAvita Health System Ontario HospitalComment on above:Performed By: #### 44538-7 ####LARISA Dominguez ([id number])[facility] ([facility])[address] [place], [place] [address]Quqckcaqwl (Bld) [Volume fraction] 31.2 %Low36.0-46.0South[facility] General Health CenterComment on above: Performed By: #### 80511-1 ####LARISA Dominguez ([id number])[facility] ([facility])[address] [facility], [place] [address]Njacxhmrsy (Bld) [Mass/Vol]9.7 g/dLLow 12.0-16.0[facility] General Health CenterComment on above:Performed By: #### 53736-0 ####LARISA Dominguez ([id number])[facility] ([facility])[address] [place] [address]JTG (RBC) [Entitic mass]27.0 xjJngulx98.0-34.0 [facility] Health CenterComment on above:Performed By: #### 95097-0 ####LARISA Dominguez ([id number])[facility] ([facility])[address] [place], [place] [address]HDZV (RBC) [Mass/Vol]31.1 g/dLLow32.0-36.0UnAvita Health System Ontario HospitalComment on above:Performed By: #### 53500-3 ####LARISA Dominguez (24414)[facility] ([facility])[address] [place] [address]EMO (RBC) [Entitic vol]87 aAXlvoux48-400EorchiptxgSouthwest General Health CenterComment on above:Performed By: #### 04274-7 ####LARISA Dominguez (99305)[facility] ([facility])[address] [place], [place] [address]Aolfpinvq RBC/100 WBC (Bld) [Ratio]0.0 /100 WBCsNormal0.0-0.0UnAvita Health System Ontario HospitalComment on above:Performed By: #### 79244-1 ####ALRISA Dominguez ([id number])[facility] ([facility])[address] [place] [address]Nbhvgufre (Bld) [#/Vol]285 x10*3/gAFiynia232-056EckabyaallAvita Health System Ontario HospitalComment on above:Performed By: #### 50165-8 ####LARISA Dominguez ([id number])[facility] ([facility])[address] [place], [place] [address]BBQ (Bld) [#/Vol]3.59 x10*6/uLLow4.00-5.20UnAvita Health System Ontario HospitalComment on above:Performed By: #### 42576-2 ####LARISA Dominguez ([id number])[facility] ([facility])[address] [place], [place] [address]MRF (Bld) [#/Vol]5.9 x10*3/uLNormal4.4-11.3UnAvita Health System Ontario HospitalComment on above:Performed By: #### 13300-3 ####LARISA Dominguez ([id number])[facility] ([facility])[address] [place], [place] [address]Jffzkvxik on 59-22-8365Itebjqwnu [Mass/Vol]2.50 mg/dLHigh1.60 - 2.40 mg/dLUnLicking Memorial HospitalMagnesium [Mass/Vol]2.50 mg/dLHigh1.60-2.40UnAvita Health System Ontario HospitalComment on above:Performed By: #### 31840-2 ####LARISA Dominguez (46271)[facility] ([facility])[address] [place], [place] [address]Va Panel Informationon 20-76-9178Rskqkqtsdffekm and review of laboratory resultsAbnoalUniMercy Health Allen HospitalUnLicking Memorial HospitalRenal function 1999 panelon 54-73-0130Hckrowg BCP dye [Mass/Vol]3.6 g/dL3.4 - 5.0 g/dLUnLicking Memorial HospitalAnion gap [Moles/Vol]13 mmol/L10 - 20 mmol/[facility] Medical CenterCalcium [Mass/Vol]7.1 mg/dL Low8.6 - 10.3 mg/dLShelby Memorial HospitalChloride [Moles/Vol]106 mmol/L98 - 107 mmol/[facility] Medical CenterCO2 [Moles/Vol]25 mmol/L21 - 32 mmol/[facility] CenterCreatinine [Mass/Vol]0.99 mg/dL0.50 - 1.05 mg/dLShelby Memorial HospitalGFR/1.73 sq M.predicted among non- blacks MDRD (S/P/Bld) [Vol rate/Area]56 mL/min/{1.73_m2}[facility] PINFUniMercy Health Allen HospitalComment on above:Calculations of estimated GFR are performed using the 2020 CKD-EPI Study Refit equation without therace variable for the IDMS-Traceable creatinine methods. https://jasn.asnjournals.org/content//ASN.9189048092 Glucose [Mass/Vol]88 mg/dL74 - 99 mg/dLUnLicking Memorial Hospital Phosphate [Mass/Vol]2.7 mg/dL2.5 - 4.9 mg/dLUnLicking Memorial Hospital Comment on above:The performance characteristics of phosphorus testing in heparinized plasma have been validated by the individual laboratory site where testing is performed. Testing on heparinized plasma is not approved by the FDA; however, such approval is not necessary.Potassium [Moles/Vol]3.8 mmol/L3.5 - 5.3 mmol/[facility] Medical CenterSodium [Moles/Vol]140 mmol/L136 - 145 mmol/[facility] Medical CenterUrea nitrogen [Mass/Vol]27 mg/dLHigh6 - 23 mg/dLUnLicking Memorial HospitalAlbumin BCP dye [Mass/Vol]3.6 g/dL Normal3.4-5.0UnAvita Health System Ontario HospitalComment on above: Performed By: #### 22536-6 ####LARISA Dominguez ([id number])[facility] ([facility])[address] [place], [place] [address]Avqzw gap [Moles/Vol]13 mmol/KTtxxac68-88 [facility] Health CenterComment on above:Performed By: #### 56247-5 ####LARISA Dominguez ([id number])[facility] ([facility])[address] [place], [place] [address]Pzdeyar [Mass/Vol]7.1 mg/dLLow8.6-10.3UnAvita Health System Ontario HospitalComment on above:Performed By: #### 19515-2 ####LARISA Dominguez ([id number])[facility] ([facility])[address], [place] [address]Xlkylmoi [Moles/Vol]106 mmol/ZMjhtnm13-745SnlanckbarAvita Health System Ontario HospitalComment on above:Performed By: #### 12242-0 ####LARISA Dominguez ([id number])[facility] ([facility])[address], [place] [address]UI4 [Moles/Vol]25 mmol/ORcleor38-91MwfnprtyjiAvita Health System Ontario HospitalComment on above:Performed By: #### 04627-9 ####LARISA Dominguez (09060)[facility] ([facility])[address], [place] [address]Rfoymkaoip [Mass/Vol]0.99 mg/dL Normal0.50-1.05UnAvita Health System Ontario HospitalComment on above: Performed By: #### 60795-9 ####LARISA Dominguez ([id number])[facility] ([facility])[address], [place] [address]Afoycyeimf filtration rate/1.73 sq M.oixgidwxm21 mL/min/1.73m*2Low>60UnAvita Health System [facility] Hospital Comment on above:Result Comment: Calculations of estimated GFR are performed using the 2020 CKD-EPI Study Refit equation without the race variable for the IDMS-Traceable creatinine methods. https://jasn.asnjournals.org/content//ASN.8830187375Hbpyycvbm By: #### 82370-4 ####LARISA Dominguez ([id number])[facility] ([facility])[address], [place] [address]Jdopyql [Mass/Vol]88 mg/lUWcikuf05-15ClbjgvyawgAvita Health System Ontario HospitalComment on above:Performed By: #### 93820-9 ####LARISA Dominguez ([id number])[facility] ([facility])[address] [place], [place] [address]Zynkqjwdj [Mass/Vol]2.7 mg/dLNormal2.5-4.9UnAvita Health System Ontario HospitalComment on above:Result Comment: The performance characteristics of phosphorus testing in heparinized plasma have been validated by the individual laboratory site where testing is performed. Testing on heparinizedplasma is not approved by the FDA; however, such approval is not necessary.Performed By: #### [id number] ####LARISA Dominguez ([id number])[facility] ([facility])[address] [facility] [place] [place] [address]Hdchraqjl [Moles/Vol]3.8 mmol/L Normal3.5-5.3UnAv[facility] Health [facility] [place] HospitalComment on above: Performed By: #### [id number] ####LARISA Dominguez ([id number])[facility] ([facility])[id number] [place] [address]Vxmccb [Moles/Vol]140 mmol/EZhjiza358-544 [facility] Health CenterComment on above:Performed By: #### 86418-3 ####LARISA Dominguez ([id number])[facility] ([facility])[address] [facility], [place] [address]Kgzo nitrogen [Mass/Vol]27 mg/dLHigh6-23UnAvita Health System Ontario HospitalComment on above:Performed By: #### 05025-6 ####LARISA Dominguez ([id number])[facility] ([facility])[address] [facility], [place] [address]CUB panel Auto (Bld)on 25-96-8542Euysstxjiol distribution width (RBC) [Ratio]14.6 %High11.5 - 14.5 %[facility] HospitalHematocrit (Bld) [Volume fraction]33.1 %Low36.0 - 46.0 %[facility] Hemoglobin (Bld) [Mass/Vol]10.1 g/dLLow12.0 - 16.0 g/dLUnLicking Memorial HospitalInterpretation and review of laboratory resultsAbnormalUniShelby Memorial Hospital (RBC) [Entitic mass]26.6 pg26.0 - 34.0 pgUnWilson Memorial Hospital (RBC) [Mass/Vol]30.5 g/dLLow32.0 - 36.0 g/dL [facility] HospitalMCV (RBC) [Entitic vol]87 fL80 - 100 fL [facility] HospitalNucleated RBC/100 WBC (Bld) [Ratio]0.0 % [facility] HospitalPlatelets (Bld) [#/Vol]289 10*3/[facility] CampusRBC (Bld) [#/Vol]3.79 10*6/[facility] OhioWBC (Bld) [#/Vol]6.8 10*3/[facility] CampusUnLicking Memorial HospitalErythrocyte distribution width (RBC) [Ratio]14.6 %High 11.5-14.5South[facility] General Health CenterComment on above:Performed By: #### 40631-5 #### LARISA Dominguez ([id number]) [facility] ([facility]) [address] [place], [place] [address]Mbzwpzlnef (Bld) [Volume fraction]33.1 %Low36.0-46.0UnAvita Health System Ontario HospitalComment on above:Performed By: #### 58870-5 #### LARISA Dominguez ([id number]) [facility] ([facility]) [address] [place], [place] [address]Tpexuuwfhj (Bld) [Mass/Vol]10.1 g/dLLow12.0-16.0UnAvita Health System Ontario HospitalComment on above:Performed By: #### 28604-4 #### LARISA Dominguez ([id number]) [facility] ([facility]) [address] [place], [place] [address]ERZ (RBC) [Entitic mass]26.6 vfYdnbyj29.0-34.0[facility] General Health CenterComment on above:Performed By: #### 60807-9 #### LARISA Dominguez ([id number]) [facility] ([facility]) [address] [place], [place] [address]CGTG (RBC) [Mass/Vol]30.5 g/dLLow32.0-36.0[facility] Medical CenterComment on above:Performed By: #### 90660-2 #### LARISA Dominguez ([id number]) [facility] ([facility]) [address] [place], [place] [address]OUM (RBC) [Entitic vol]87 nCNgahdl36-947SrktzljrdmSouthwest General Health CenterComment on above:Performed By: #### 20411-3 #### LARISA Dominguez ([id number]) [facility] ([facility]) [address] [place], [place] [address]Jfovzqpad RBC/100 WBC (Bld) [Ratio]0.0 /100 WBCsNormal0.0-0.0 [facility] Health CenterComment on above:Performed By: #### 41712-7 #### LARISA Dominguez ([id number]) [facility] ([facility]) [address] [place], [place] [address]Bfjzvujre (Bld) [#/Vol]289 x10*3/eAXunzzj246-541PbwyssbadzAvita Health System Ontario HospitalComment on above:Performed By: #### 73649-7 #### LARISA Dominguez ([id number]) [facility] ([facility]) [address] [place], [place] [address]IDY (Bld) [#/Vol]3.79 x10*6/uLLow4.00-5.20[facility] Health CenterComment on above:Performed By: #### 30024-7 #### LARISA Dominguez ([id number]) [facility] ([facility]) [address] [place], [place] [address]TJA (Bld) [#/Vol]6.8 x10*3/uLNormal4.4-11.3[facility] Health CenterComment on above:Performed By: #### 43382-0 #### LARISA Dominguez ([id number]) [facility] ([facility]) [address] [place], [place] [address]KRT 12 leadOrdered By: Tami Barragan on 58-08-7534Vufahv Ltcg91SIWXhgyreifrzKettering Health Dayton Work Phone: [phone] Cashmere-24degrOhio Valley Surgical Hospital Work Phone: [phone] Cbdewf617 [facility] Work Phone: [phone] Gyuoo762 [facility] Work Phone: [phone] Mnysxivj919 [facility] Work Phone: [phone] Ouxpb427 [facility] Work Phone: [phone] Kjwse82ecoxtYbjlxzancpLogansport State Hospital Work Phone: [phone] Zjjjnfea85 [facility] Work Phone: [phone] Tkzmxuee944 [facility] Work Phone: [phone] Calculation(Tawnyatt)441 [facility] Work Phone: [phone] Zhpwnflypk500 [facility] Work Phone: [phone] Cashmere-40deOhioHealth Riverside Methodist Hospital Work Phone: [phone] Qxfl62mhceqfvZbwzhnmwoyOhioHealth Riverside [facility] Hospital Work Phone: [phone] Nhtpqe114 [facility] Work Phone: [phone] Imkf89EZHElbxfuvcfqKettering Health Dayton Work Phone: [phone] Work Phone: ECG 12 leadon 82-57-6368Vyljzp-paced rhythm Left axis deviation Voltage criteria for left ventricular hypertrophy Abnormal ECG When compared with ECG of 03-JUL-2020 15:36, QRS axis Shifted left See ED provider note for full interpretation and clinical correlation Confirmed by Tami Barragan ([id number]) on 03/29/2024 6:06:09 PMTami Newberry PA-C - 03/29/2024 Atrial-paced rhythm Left axis deviation Voltage criteria for left ventricular hypertrophy Abnormal ECG When compared with ECG of 03-JUL-2020 15:36, QRS axis Shifted left See ED provider note for full interpretation and clinical correlation Confirmed by Tami Barragan ([id number]) on 03/29/2024 6:06:09 PM [facility] Work Phone: Magnesiumon 40-40-3134Hfqktgroz [Mass/Vol]2.17 mg/dL 1.60 - 2.40 mg/dLUnLicking Memorial HospitalMagnesium [Mass/Vol]2.17 mg/dL Normal1.60-2.40UnAvita Health System Ontario HospitalComment on above: Performed By: #### 31092-6 #### LARISA Dominguez ([id number]) [facility] ([facility]) [address] [place], [place] [address]Arnkktdwa [Mass/Vol]on 62-64-5093Avkkxwkxeymjwb and review of laboratory resultsNormalUniMercy Health Allen HospitalNo Panel Informationon 71-89-7234JkctslgchaLicking Memorial HospitalRF videography Hypopharynx and Esophagus Views for swallowing function W speech and W barium contrast Kiana 84-03-3603Sdfzbzkz barium swallow study as detailed within the report. MACRO: None Signed by: Kelsey Farias 03/29/2024 5:37 PM Dictation workstation: [id number] By: Kelsey Farias and Mayer Katherine STUDY: [place] MODIFIED BARIUM SWALLOW STUDY;; 03/29/2024 8:59 am INDICATION: Signs/Symptoms:Dysphagia. COMPARISON: Chest radiographs 03/28/2024 ACCESSION NUMBER(S): [id number] ORDERING CLINICIAN: DONINE THORPE TECHNIQUE: Modified Barium Swallow Study completed. Informed verbal consent obtained prior to completion of exam. Trials of thin, nectar/mildly thick liquid, honey/moderately thick liquid, puree solids were given. SHANK MAKER: MOLLY Ortega Contact info: [employer] secure chat Fluoroscopy time: 1:13 SPEECH FINDINGS: Reason for Referral: dysphagia Patient Hx: Achalasia with history of PEG for nutrition. Recent dilation of esophagus. Respiratory Status: Room air Current diet: pleasure feeds only, unable to tolerate same for 2 weeks Pain: Pain Scale: 0-10 Ratin FINAL SPEECH RECOMMENDATIONS DIET: NPO for nutrition, hydration and medication. Occasional pleasure feeds as tolerated. Plan: SHANK MAKER Plan: No treatment needs identified at this [...] clearance - Minimal to no esophageal clearance SHANK MAKER Impressions with Severity Rating: Pt presents with [...] enter airway, above vocal cords, no residue Belden Thick Liquids: 2. PENETRATION that CLEARS - contrast enter airway, above vocal cords, no residue Honey Thick Liquids: 1. NO ASPIRATION & NO PENETRATION - no aspiration, contrast does not enter airway Speech Therapy section of this report signed by Tami Neely MS, CCC/SHANK MAKER on 03/29/2024 at 9:08 am. 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 Age indeterminate mild T12 anterior wedging. Radiology section of this report signed by Dr. Kelsey Farias DO. [facility] MMODALJuanKelsey DO - 03/29/2024 Interpreted By: Kelsey Farias and Mayer Katherine STUDY: [place] MODIFIED BARIUM SWALLOW STUDY;; 03/29/2024 8:59 am INDICATION: Signs/Symptoms:Dysphagia. COMPARISON: Chest radiographs 03/28/2024 ACCESSION NUMBER(S): [id number] ORDERING CLINICIAN: DONNIE THORPE TECHNIQUE: Modified Barium Swallow Study completed. Informed verbal consent obtained prior to completion of exam. Trials of thin, nectar/mildly thick liquid, honey/moderately thick liquid, puree solids were given. SHANK MAKER: MOLLY Ortega Contact info: [employer] chat Fluoroscopy time: 1:13 SPEECH FINDINGS: Reason for Referral: dysphagia Patient Hx: Achalasia with history of PEG for nutrition. Recent dilation of esophagus. Respiratory Status: Room air Current diet: pleasure feeds only, unable to tolerate same for 2 weeks Pain: Pain Scale: 0-10 Ratin FINAL SPEECH RECOMMENDATIONS DIET: NPO for nutrition, hydration and medication. Occasional pleasure feeds as tolerated. Plan: SHANK MAKER Plan: No treatment needs identified at this [...] clearance - Minimal to no esophageal clearance SHANK MAKER Impressions with Severity Rating: Pt presents with [...] enter airway, above vocal cords, no residue Belden Thick Liquids: 2. PENETRATION that CLEARS - contrast enter airway, above vocal cords, no residue Honey Thick Liquids: 1. NO ASPIRATION & NO PENETRATION - no aspiration, contrast does not enter airway Speech Therapy section of this report signed by Tami Neely MS, CCC/SHANK MAKER on 03/29/2024 at 9:08 am. 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 Age indeterminate mild T12 anterior wedging. Radiology section of this report signed by Dr. Kelsey Farias DO. IMPRESSION: Modified barium swallow study as detailed within the report. MACRO: None Signed by: Kelsey Farias 03/29/2024 5:37 PM Dictation workstation: [id number] [facility] Work Phone: Radiology Study observation (narrative)[facility] Work Phone: RF videography Hypopharynx and Esophagus Views for swallowing function W speech and W barium contrast POOrdered By: Kelsey Farias on [id number] Memorial Hospital Work Phone: Renal function 2000 panelon 06-49-5854Rfntyru BCP dye [Mass/Vol]3.7 g/dL3.4 - 5.0 g/dLUnLicking Memorial HospitalAnion gap [Moles/Vol]14 mmol/L10 - 20 mmol/[facility] CenterCalcium [Mass/Vol]7.8 mg/dLLow8.6 - 10.3 mg/dLUnSelect Medical Specialty Hospital - [place] on above:hx checkedChloride [Moles/Vol]104 mmol/L98 - 107 mmol/[facility] CenterCO2 [Moles/Vol]28 mmol/L21 - 32 mmol/[facility] CenterCreatinine [Mass/Vol]0.96 mg/dL0.50 - 1.05 mg/dLUnLicking Memorial HospitalGFR/1.73 sq M.predicted among non-blacks MDRD (S/P/Bld) [Vol rate/Area]58 mL/min/{1.73_m2}Low- PINFUniMercy Health Allen Hospital Comment on above:Calculations of estimated GFR are performed using the 2020 CKD- EPI Study Refit equation without therace variable for the IDMS-Traceable creatinine methods. https://jasn.asnjournals.org/content//ASN.8492122991 Glucose [Mass/Vol]96 mg/dL74 - 99 mg/dLUnLicking Memorial Hospital Interpretation and review of laboratory resultsAbnormalUniMercy Health Allen HospitalPhosphate [Mass/Vol]4.6 mg/dL2.5 - 4.9 mg/dLUnSelect Medical Specialty Hospital - [place] on above:The performance characteristics of phosphorus testing in heparinized plasma have been validated by the individual laboratory site where testing is performed. Testing on heparinized plasma is not approved by the FDA; however, such approval is not necessary.Potassium [Moles/Vol]4.5 mmol/L3.5 - 5.3 mmol/[facility] CenterSodium [Moles/Vol]141 mmol/L136 - 145 mmol/[facility] CenterUrea nitrogen [Mass/Vol]24 mg/dLHigh6 - 23 mg/dLUnLicking Memorial HospitalAlbumin BCP dye [Mass/Vol]3.7 g/dL Normal3.4-5.0UnAvita Health System Ontario HospitalComment on above: Performed By: #### 41186-3 #### LARISA Dominguez ([id number]) [facility] ([facility]) [address] [place] [address]Jxvhl gap [Moles/Vol]14 mmol/UQzrfvk87-06UbxrnwmtabAvita Health System Ontario HospitalComment on above:Performed By: #### 39833-0 #### LARISA Dominguez ([id number]) [facility] ([facility]) [address] [place], [place] [address]Nccqbur [Mass/Vol]7.8 mg/dLLow8.6-10.3South[facility] General Health CenterComment on above:Result Comment: hx checkedPerformed By: #### 09381-1 #### LARISA Dominguez ([id number]) [facility] ([facility]) [address] [place] [address]Mlzsznwn [Moles/Vol]104 mmol/BEkoswu74-568ZhdgvloamgAvita Health System Ontario HospitalComment on above:Performed By: #### 01774-6 #### LARISA Dominguez ([id number]) [facility] ([facility]) [address] [place], [place] [address]KT8 [Moles/Vol]28 mmol/PQwlhjm35-07LavllqwcdiSouthwest General Health CenterComment on above:Performed By: #### 21459-2 #### LARISA Domniguez ([id number]) [facility] ([facility]) [address] [place], [place] [address]Avcniqjtfx [Mass/Vol]0.96 mg/dLNormal0.50-1.05UnAvita Health System Ontario HospitalComment on above:Performed By: #### 33483-4 #### LARISA Dominguez ([id number]) [facility] ([facility]) [address] [place], [place] [address]Cogihjzjpi filtration rate/1.73 sq M.ujstvrbew60 mL/min/1.73m*2 Low>60UnAvita Health System Ontario HospitalComment on above:Result Comment: Calculations of estimated GFR are performed using the 2020 CKD-EPI Study Refit equation without the race variable for the IDMS-Traceable creatinine methods. https://jasn.asnjournals.org/content//ASN.4921605241Cvbwhfbzc By: #### 84147-9 #### LARISA Dominguez ([id number]) [facility] ([facility]) [address] [place], [place] [address]Ivqzbsb [Mass/Vol]96 mg/mPWaqmob60-12UlezkwymbgAvita Health System Ontario HospitalComment on above:Performed By: #### 14705-1 #### LARISA Dominguez ([id number]) [facility] ([facility]) [address] [place], [place] [address]Jsfsezfgt [Mass/Vol]4.6 mg/dLNormal2.5-4.9UnAvita Health System Ontario HospitalComment on above:Result Comment: The performance characteristics of phosphorus testing in heparinized plasma have been validated by the individual laboratory site where testing is performed. Testing on heparinizedplasma is not approved by the FDA; however, such approval is not necessary.Performed By: #### 58145-5 #### LARISA Dominguez ([id number]) [facility] ([facility]) [address] [place], [place] [address]Wghfzgvwq [Moles/Vol]4.5 mmol/LNormal3.5-5.3UnAvita Health System Ontario HospitalComment on above:Performed By: #### 98606-6 #### LARISA Dominguez ([id number]) [facility] ([facility]) [address] [place], [place] [address]Qvjdfu [Moles/Vol]141 mmol/BNcmerc542-644ViuplvovafAvita Health System Ontario HospitalComment on above:Performed By: #### 48723-6 #### LARISA Dominguez ([id number]) [facility] ([facility]) [address] [place], [place] [address]Gqjn nitrogen [Mass/Vol]24 mg/dLHigh6-23UnAvita Health System Ontario HospitalComment on above:Performed By: #### 15690-0 #### LARISA Dominguez ([id number]) [facility] ([facility]) [address] [place], [place] [address]MQX W Auto Differential panel (Bld)on 35-01-0772Dskeqplgj (Bld) [#/Vol]0.05 10*3/[facility] CampusBasophils/100 WBC (Bld)0.7 %0.0 - 2.0 %[facility] HospitalEosinophils (Bld) [#/Vol]0.18 10*3/[facility] CampusEosinophils/100 WBC (Bld)2.5 %0.0 - 6.0 %[facility] Memorial HospitalErythrocyte distribution width (RBC) [Ratio] 14.8 %High11.5 - 14.5 %[facility] HospitalHematocrit (Bld) [Volume fraction]34.6 %Low36.0 - 46.0 %[facility] HospitalHemoglobin (Bld) [Mass/Vol]10.4 g/dLLow12.0 - 16.0 g/dLUnLicking Memorial Hospital Immature granulocytes (Bld) [#/Vol]0.04 10*3/[facility] Immature granulocytes/100 WBC (Bld)0.6 %0.0 - 0.9 %[facility] HospitalComment on above:Immature Granulocyte Count (IG) includes promyelocytes, myelocytes and metamyelocytes but does not include bands. Percent differential counts (%) should be interpreted in the context of the absolute c ell counts (cells/UL).Interpretation and review of laboratory resultsAbnormal [facility] HospitalLymphocytes (Bld) [#/Vol]1.40 10*3/[facility] CampusLymphocytes/100 WBC (Bld)19.6 %13.0 - 44.0 %[facility] CenterH (RBC) [Entitic mass]27.2 pg26.0 - 34.0 pgUnKeenan Private HospitalHC (RBC) [Mass/Vol]30.1 g/dLLow32.0 - 36.0 g/dL [facility] CenterV (RBC) [Entitic vol]90 fL80 - 100 fL [facility] HospitalMonocytes (Bld) [#/Vol]0.70 10*3/[facility] CampusMonocytes/100 WBC (Bld)9.8 %2.0 - 10.0 %[facility] Memorial HospitalNeutrophils (Bld) [#/Vol]4.77 10*3/[facility] CampusComment on above:Percent differential counts (%) should be interpreted in the context of the absolute cell counts (cells/uL). Neutrophils/100 WBC (Bld)66.8 %40.0 - 80.0 %[facility] Nucleated RBC/100 WBC (Bld) [Ratio]0.0 %[facility] Platelets (Bld) [#/Vol]324 10*3/[facility] CampusRBC (Bld) [#/Vol]3.83 10*6/[facility] OhioWBC (Bld) [#/Vol]7.1 10*3/[facility] CampusUnLicking Memorial Hospital Basophils (Bld) [#/Vol]0.05 x10*3/uLNormal0.00-0.10UnAvita Health System Ontario HospitalComment on above:Performed By: #### 07437-8 #### LARISA Dominguez ([id number]) [facility] ([facility]) [address] [place], [place] [address]Wjgvijzue/100 WBC (Bld)0.7 %Normal0.0-2.0UnAvita Health System Ontario HospitalComment on above:Performed By: #### 71075-5 #### LARISA Dominguez ([id number]) [facility] ([facility]) [address] [place], [place] [address]Vjytujwhygf (Bld) [#/Vol]0.18 x10*3/uLNormal0.00-0.40UnAvita Health System Ontario HospitalComment on above:Performed By: #### 45467-8 #### LARISA Dominguez (42063) [facility] ([facility]) [address] [place], [place] [address]Xgoyrzpuato/100 WBC (Bld)2.5 %Normal0.0-6.0UnAvita Health System Ontario HospitalComment on above:Performed By: #### 43205-6 #### LARISA Dominguez (87009) [facility] ([facility]) [address] [place], [place] [address]Amlqkpcdxgi distribution width (RBC) [Ratio]14.8 %High11.5-14.5 [facility] Health CenterComment on above:Performed By: #### 28523-6 #### LARISA Dominguez (01290) [facility] ([facility]) [address] [facility] [place], [place] [address]Exbqdfkbex (Bld) [Volume fraction]34.6 %Low36.0-46.0UnAvita Health System Ontario HospitalComment on above:Performed By: #### 03401-9 #### LARISA Dominguez (74686) [facility] ([facility]) [address] [facility] [place] [place], [place] [address]Hqovuxmrvb (Bld) [Mass/Vol]10.4 g/dLLow12.0-16.0UnAvita Health System Ontario HospitalComment on above:Performed By: #### 73039-5 #### LARISA Dominguez (83054) [facility] ([facility]) [address] [place], [place] [address]Wxkvwkmc granulocytes (Bld) [#/Vol]0.04 x10*3/uLNormal0.00-0.50 [facility] CenterComment on above:Performed By: #### 10953-4 #### LARISA Dominguez (86189) [facility] ([facility]) [address] [facility] [place] [address]Fexdbcew granulocytes/100 WBC (Bld)0.6 %Normal0.0-0.9UnAvita Health System Ontario HospitalComment on above:Result Comment: Immature Granulocyte Count (IG) includes promyelocytes, myelocytes and metamyelocytes but does not include bands. Percent differential counts (%) should be interpreted in the context of the absolute cell counts (cells/UL).Performed By: #### 94156-7 #### LARISA Dominguez (05268) [facility] ([facility]) [address] [place], [place] [address]Bfyeqlwirjs (Bld) [#/Vol]1.40 x10*3/uLNormal0.80-3.00UnAvita Health System Ontario HospitalComment on above:Performed By: #### 03355-3 #### LARISA Dominguez (23012) [facility] ([facility]) [address] [place], [place] [address]Rclteyzqnmv/100 WBC (Bld)19.6 %Yhcvbh51.0-44.0UnAvita Health System Ontario HospitalComment on above:Performed By: #### 17262-6 #### LARISA Dominguez (04638) [facility] ([facility]) [address] [place], [place] [address]MLR (RBC) [Entitic mass]27.2 jcXjzyxs74.0-34.0UnAvita Health System Ontario HospitalComment on above:Performed By: #### 16428-1 #### LARISA Dominguez (48873) [facility] ([facility]) [address] [place], [place] [address]LFLX (RBC) [Mass/Vol]30.1 g/dLLow32.0-36.0UnAvita Health System Ontario HospitalComment on above:Performed By: #### 28047-3 #### LARISA Dominguez (46058) [facility] ([facility]) [address] [place], [place] [address]YUA (RBC) [Entitic vol]90 tRFpmukb05-215ZkeilbwwcsSouthwest General Health CenterComment on above:Performed By: #### 48398-3 #### LARISA Dominguez (97282) [facility] ([facility]) [address] [place], [place] [address]Qhbjedhjg (Bld) [#/Vol]0.70 x10*3/uLNormal0.05-0.80UnAvita Health System Ontario HospitalComment on above:Performed By: #### 90487-3 #### LARISA Dominguez (46251) [facility] ([facility]) [address] [place] [address]Sgzovlsbw/100 WBC (Bld)9.8 %Normal2.0-10.0UnAvita Health System Ontario HospitalComment on above:Performed By: #### 85123-7 #### LARISA Dominguez (58149) [facility] ([facility]) [address] [facility] [place], [place] [address]Plpitskusru (Bld) [#/Vol]4.77 x10*3/uLNormal1.60-5.50UnAvita Health System Ontario HospitalComment on above:Result Comment: Percent differential counts (%) should be interpreted in the context of the absolute cell counts (cells/uL).Performed By: #### 31359-5 #### LARISA Dominguez ([id number]) [facility] ([facility]) [address] [facility] [place] [place] [address]Scqkjfselwd/100 WBC (Bld)66.8 %Lyifsm31.0-80.0UnAvita Health System Ontario HospitalComment on above:Performed By: #### 92293-4 #### LARISA Dominguez (40384) [facility] ([facility]) [address] [place], [place] [address]Miebqjzfu RBC/100 WBC (Bld) [Ratio]0.0 /100 WBCsNormal0.0-0.0 [facility] CenterComment on above:Performed By: #### 63548-0 #### LARISA Dominguez (54135) [facility] ([facility]) [address] [facility] [place] [address]Fopsswjah (Bld) [#/Vol]324 x10*3/yJMmdqpf721-455CzviftvbzgAvita Health System Ontario HospitalComment on above:Performed By: #### 70762-2 #### LARISA Dominguez (16452) [facility] ([facility]) [address] [place], [place] [address]XEL (Bld) [#/Vol]3.83 x10*6/uLLow4.00-5.20UnAvita Health System Ontario HospitalComment on above:Performed By: #### [id number] #### LARISA ROYCHRIS Dominguez ([id number]) [facility] ([facility]) [address] [place], [place] [address]WAN (Bld) [#/Vol]7.1 x10*3/uLNormal4.4-11.3UnAvita Health System Ontario HospitalComment on above:Performed By: #### 34691-8 #### LARISA NATALIYA Dominguez ([id number]) [facility] ([facility]) [address] [place], [place] [address]Vllsqjpldtbhf metabolic 2000 panelon 70-46-3946Viupqhh BCP dye [Mass/Vol]3.7 g/dL3.4 - 5.0 g/dLUnLicking Memorial HospitalALP [Catalytic activity/Vol]71 U/L33 - 136 U/[facility] CenterALT With P-5'-P [Catalytic activity/Vol]6 U/LLow7 - 45 U/[facility] Comment on above:Patients treated with Sulfasalazine may generate falsely decreased results for ALT.Anion gap [Moles/Vol]14 mmol/L10 - 20 mmol/[facility] Medical CenterAST With P-5'-P [Catalytic activity/Vol]17 U/L9 - 39 U/L [facility] HospitalBilirubin [Mass/Vol]0.4 mg/dL0.0 - 1.2 mg/dL [facility] HospitalCalcium [Mass/Vol]9.3 mg/dL8.6 - 10.3 mg/dL [facility] HospitalChloride [Moles/Vol]103 mmol/L98 - 107 mmol/L [facility] HospitalCO2 [Moles/Vol]29 mmol/L21 - 32 mmol/L [facility] HospitalCreatinine [Mass/Vol]1.10 mg/dLHigh0.50 - 1.05 mg/dLUnLicking Memorial HospitalGFR/1.73 sq M.predicted among non-blacks MDRD (S/P/Bld) [Vol rate/Area]50 mL/min/{1.73_m2}Low- PINFUniversity Hospitals of ClevelandComment on above:Calculations of estimated GFR are performed using the 2020 CKD-EPI Study Refit equation without therace variable for the IDMS- Traceable creatinine methods. https://jasn.asnjournals.org/content//ASN.5485068802 Glucose [Mass/Vol]94 mg/dL74 - 99 mg/dLShelby Memorial Hospital Potassium [Moles/Vol]4.9 mmol/L3.5 - 5.3 mmol/[facility] Protein [Mass/Vol]7.0 g/dL6.4 - 8.2 g/dLUnLicking Memorial HospitalSodium [Moles/Vol]141 mmol/L136 - 145 mmol/[facility] Medical CenterUrea nitrogen [Mass/Vol]25 mg/dLHigh6 - 23 mg/dLShelby Memorial Hospital Albumin BCP dye [Mass/Vol]3.7 g/dLNormal3.4-5.0South[facility] General Health CenterComment on above:Performed By: #### 60528-7 #### LARISA Dominguez ([id number]) [facility] ([facility]) [address] [place], [place] [address]HEE [Catalytic activity/Vol]71 U/NHadnnm41-033LnkikdphpmSouthwest General Health CenterComment on above:Performed By: #### 29258-7 #### LARISA Dominguez ([id number]) [facility] ([facility]) [address] [place], [place] [address]JLC With P-5'-P [Catalytic activity/Vol]6 U/LLow7-45UnAvita Health System Ontario HospitalComment on above:Result Comment: Patients treated with Sulfasalazine may generate falsely decreased results for ALT.Performed By: #### 88570-0 #### LARISA Dominguez ([id number]) [facility] ([facility]) [address] [place], [place] [address]Wsexg gap [Moles/Vol]14 mmol/VJfdpem38-24WawoxlerioSouthwest General Health CenterComment on above:Performed By: #### 55647-8 #### LARISA Dominguez ([id number]) [facility] ([facility]) [address] [place], [place] [address]ZPJ With P-5'-P [Catalytic activity/Vol]17 U/LNormal9-39 [facility] Health CenterComment on above:Performed By: #### 01947-4 #### LARISA Dominguez ([id number]) [facility] ([facility]) [address] [place], [place] [address]Clmpqcrcd [Mass/Vol]0.4 mg/dLNormal0.0-1.2UnAvita Health System Ontario HospitalComment on above:Performed By: #### 20701-5 #### LARISA Dominguez ([id number]) [facility] ([facility]) [address] [place], [place] [address]Azyjolc [Mass/Vol]9.3 mg/dLNormal8.6-10.3UnAvita Health System Ontario HospitalComment on above:Performed By: #### 34528-3 #### LARISA Dominguez ([id number]) [facility] ([facility]) [address] [place], [place] [address]Wbyckdzn [Moles/Vol]103 mmol/BZutqly98-569NhpzlokfcaAvita Health System Ontario HospitalComment on above:Performed By: #### 35941-5 #### LARISA Dominguez ([id number]) [facility] ([facility]) [address] [place], [place] [address]YN3 [Moles/Vol]29 mmol/DDrwqrh66-72RutkrdfaniAvita Health System Ontario HospitalComment on above:Performed By: #### 02302-2 #### LARISA Dominguez ([id number]) [facility] ([facility]) [address] [place], [place] [address]Iradozpogt [Mass/Vol]1.10 mg/dLHigh0.50-1.05UnAvita Health System Ontario HospitalComment on above:Performed By: #### 77731-4 #### LARISA Dominguez ([id number]) [facility] ([facility]) [address] [place], [place] [address]Vkmcfvsezm filtration rate/1.73 sq M.faclycmxs20 mL/min/1.73m*2 Low>60UnAvita Health System Ontario HospitalComment on above:Result Comment: Calculations of estimated GFR are performed using the 2020 CKD-EPI Study Refit equation without the race variable for the IDMS-Traceable creatinine methods. https://jasn.asnjournals.org/content/early//ASN.1755203190Yzvyvbkcs By: #### 04422-0 #### LARISA Dominguez ([id number]) [facility] ([facility]) [address] [place], [place] [address]Rztfmqq [Mass/Vol]94 mg/xGPgcxxq98-05EurbmnjueuSouthwest General Health CenterComment on above:Performed By: #### 19907-6 #### LARISA Dominguez ([id number]) [facility] ([facility]) [address] [place], [place] [address]Ucgvpdrpq [Moles/Vol]4.9 mmol/LNormal3.5-5.3UnAvita Health System Ontario HospitalComment on above:Performed By: #### 13915-7 #### LARISA Dominguez ([id number]) [facility] ([facility]) [address] [place], [place] [address]Oakwwcn [Mass/Vol]7.0 g/dLNormal6.4-8.2South[facility] General Health CenterComment on above:Performed By: #### 39455-8 #### LARISA Dominguez ([id number]) [facility] ([facility]) [address] [place], [place] [address]Pesbjh [Moles/Vol]141 mmol/OTaqejq727-236WkcqqxfvakAvita Health System Ontario HospitalComment on above:Performed By: #### 25218-0 #### LARISA Dominguez ([id number]) [facility] ([facility]) [address] [place], [place] [address]Oxuz nitrogen [Mass/Vol]25 mg/dLHigh6-23UnAvita Health System Ontario HospitalComment on above:Performed By: #### 91790-3 #### LARISA Dominguez ([id number]) [facility] ([facility]) [address] [place], [place] [address]EZA 12-LEADon 63-87-6944DDI 12-LEADVentricular Rate 71 Atrial Rate 71 P-R Interval 128 QRS Duration 80 Q-T Interval 412 QTC Calculation(Bazett) 447 P Cashmere 60 R Cashmere 67 T Cashmere 58 QRS Count 11 Q Onset 221 [...] by Noe Mtz ([id number]) on 04/08/2024 7:13:12 [facility] CenterECG 12-LEADVentricular Rate 67 Atrial Rate 67 P-R Interval 188 QRS Duration 78 Q-T Interval 418 QTC Calculation(Bazett) 441 P Cashmere -24 R Cashmere -40 T Cashmere 30 QRS Count 11 Q Onset 224 P Onset 134 P Offset 195 T Offset 433 QTC Fredericia 434 Diagnosis Atrial-paced rhythm Left axis deviation Voltage criteria for left ventricular hypertrophy Abnormal ECG When compared with ECG of 03-JUL-2020 15:36, QRS axis Shifted left See ED provider note for full interpretation and clinical correlation Confirmed by Tami Barragan ([id number]) on 03/29/2024 6:06:09 [facility] CenterFL MODIFIED BARIUM SWALLOW STUDYon 18-95-6609FO MODIFIED BARIUM SWALLOW STUDYInterpreted By: Kelsey Farias and Mayer Katherine STUDY: [place] MODIFIED BARIUM SWALLOW STUDY;; 03/29/2024 8:59 am INDICATION: Signs/Symptoms:Dysphagia. COMPARISON: Chest radiographs 03/28/2024 ACCESSION NUMBER(S): [id number] ORDERING CLINICIAN: DONNIE THORPE TECHNIQUE: Modified Barium Swallow Study completed. Informed verbal consent obtained prior to completion of exam. Trials of thin, nectar/mildly thick liquid, honey/moderately thick liquid, puree solids were given. 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 Recent dilation of esophagus. Respiratory Status: Room air Current diet: pleasure feeds only, unable to tolerate same for 2 weeks Pain: Pain Scale: 0-10 Ratin FINAL SPEECH RECOMMENDATIONS DIET: NPO for nutrition, hydration and medication. Occasional pleasure feeds as tolerated. Plan: SHANK MAKER Plan: No treatment needs identified at this [...] clearance - Minimal to no esophageal clearance SHANK MAKER Impressions with Severity Rating: Pt presents with [...] enter airway, above vocal cords, no residue Belden Thick Liquids: 2. PENETRATION that CLEARS - contrast enter airway, above vocal cords, no residue Honey Thick Liquids: 1. NO ASPIRATION & NO PENETRATION - no aspiration, contrast does not enter airway Speech Therapy section of this report signed by Tami Neely MS, CCC/SHANK MAKER on 03/29/2024 at 9:08 am. 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 Age indeterminate mild T12 anterior wedging. Radiology section of this report signed by Dr. Kelsey Farias DO. IMPRESSION: Modified barium swallow study as detailed within the report. MACRO: None Signed by: Kelsey Farias 03/29/2024 5:37 PM Dictation workstation: [id number] Community HospitalGlucose Test strip manual (Bld) [Mass/Vol]on 50-03-4430Zcurray [Mass/Vol] 99 mg/dL74 - 99 mg/dLShelby Memorial HospitalInterpretation and review of laboratory resultsNoACMC Healthcare SystemGlucose [Mass/Vol]99 mg/qRLktllr91-17ExtnpbolrkAvita Health System Ontario HospitalComment on above:Performed By: #### 2341-6 #### LARISA Dominguez ([id number]) [facility] ([facility]) [address] [place], [place] [address]Kyebztikxkw 42-81-9861Durtnqvih [Mass/Vol]2.59 mg/dLHigh1.60 - 2.40 mg/dLShelby Memorial HospitalMagnesium [Mass/Vol]2.59 mg/dLHigh 1.60-2.40UnAvita Health System Ontario HospitalComment on above:Performed By: #### 39441-4 #### LARISA Dominguez ([id number]) [facility] ([facility]) [address] [place], [place] [address]Vb Panel Informationon 48-85-6409Yhqhxiinmbhrfr and review of laboratory resultsAbUniversity Hospitals Lake West Medical CenterTropinin I.cardiac panel High sensitivity methodon 03-28-2024 Interpretation and review of laboratory resultsNoRegency Hospital CompanyLess than 99th percentile of normal range cutoff- [...] performed using a different testing methodology at [facility] than at other [facility]. Direct result comparisons should only be made within the same method.Cherrington HospitalInterpretation and review of laboratory resultsNoHolzer HospitalLess than 99th percentile of normal range cutoff- [...] performed using a different testing methodology at [facility] than at other [facility]. Direct result comparisons should only be made within the same method.Cherrington HospitalTropon I, High Sensitivity, Initialon 68-01-7344Bdmjjrea I.cardiac panel High sensitivity ng/L0 - 13 ng/[facility] CenterTrridgeview sibley medical center I.cardiac panelon 06-75-1843Srjfkydq I.cardiac panel High sensitivity kqxgum11 ng/LNormal0-13[facility] Comment on above:Order Comment: Less than 99th percentile of normal [...] performed using a different testing methodology at [facility] than at other [facility]. Direct result comparisons should only be made within the same method.Performed By: #### 81615-4 #### LARISA Dominguez ([id number]) [facility] ([facility]) [address] [place], [place] [address]Juvpixkp I.cardiac panel High sensitivity msddex59 ng/LNormal 0-13Southwest General Health CenterComment on above:Order Comment: Less than 99th percentile of normal [...] performed using a different testing methodology at [facility] than at other [facility]. Direct result comparisons should only be made within the same method.Performed By: #### 81500-3 #### LARISA Dominguez ([id number]) [facility] ([facility]) [address] [place], [place] [address]Yrwujtgc, High Sensitivity, 1 Houron 42-68-3190Snwevfbu I.cardiac panel High sensitivity xavfho79 ng/L0 - 13 ng/LUnLicking Memorial HospitalXR CHEST 1 VIEWon 69-29-4319ER CHEST 1 VIEWInterpreted By: Reyna Jin, STUDY: XR CHEST 1 VIEW; 03/28/2024 2:17 pm INDICATION: Signs/Symptoms:difficulty swallowing. COMPARISON: 11/29/2021. ACCESSION NUMBER(S): [id number] ORDERING CLINICIAN: MALORIE MALDONADO FINDINGS: CARDIOMEDIASTINAL SILHOUETTE: [...] Reyna Jin 03/28/2024 2:47 PM Dictation workstation: [id number] Community HospitalXR Chest Single viewon . Cardiomegaly. Ascending and descending aortic stent now present. 2. Irregular interstitial thickening bilaterally may be chronic. Interstitial edema and atypical infection not excluded. 3. Mild bibasilar atelectasis or scarring. MACRO: None. Signed by: Reyna Jin 03/28/2024 2:47 PM Dictation workstation: [id number] MMODALInterpreted By: Reyna Jin, STUDY: XR CHEST 1 VIEW; 03/28/2024 2:17 pm INDICATION: Signs/Symptoms:difficulty swallowing. COMPARISON: 11/29/2021. ACCESSION NUMBER(S): [id number] ORDERING CLINICIAN: MALORIE MALDONADO FINDINGS: CARDIOMEDIASTINAL SILHOUETTE: [...] of the shoulders are partially visualized. [facility] MMODALSfilReyna carbajal MD - 03/28/2024 Interpreted By: Reyna Jin, STUDY: XR CHEST 1 VIEW; 03/28/2024 2:17 pm INDICATION: Signs/Symptoms:difficulty swallowing. COMPARISON: 11/29/2021. ACCESSION NUMBER(S): [id number] ORDERING CLINICIAN: MALORIE MALDONADO FINDINGS: CARDIOMEDIASTINAL SILHOUETTE: [...] Reyna Jin 03/28/2024 2:47 PM Dictation workstation: [id number] [facility] Work Phone: Radiology Study observation (narrative)[facility] Work Phone: XR Chest Single viewOrdered By: Reyna Jin on 40-60-9015AwykjtetfgLicking Memorial Hospital Work Phone: BASIC METABOLIC PANLon 73-98-4868Ydqvv gap [Moles/Vol] 8 mmol/LNormal5-15[facility] Village HospitalComment on above:Performed By: #### CBCA, 2776-08, , BMP #### [facility] ([id number]) [address], [address] [place], [place] [address]Bwlbigx [Mass/Vol]8.0 mg/dLLow8.5-10.5PChillicothe Hospital Comment on above:Performed By: #### SHEFALI, 2776-08, , BMP #### [facility] ([id number]) [address], [address] [place], [place] [address]Ivaagjww [Moles/Vol]108 mmol/CUjqyno75-870RvsEenwld [facility]edo HospitalComment on above:Performed By: #### SHEFALI, 2776-08, , BMP #### [facility] ([id number]) [address], [address] [place], [place] [address]YH4 [Moles/Vol]25 mmol/RIuwrxe12-23GiuOzgzjrChillicothe Hospital Comment on above:Performed By: #### SHEFALI, 2776-08, , BMP #### [facility] ([id number]) [address], [address] [place], [place] [address]Qhaxpfvqmx [Mass/Vol]0.65 mg/dLNormal0.40-1.00ProPromedica Defiance Regional HospitalComment on above:Result Comment: METHOD TRACEABLE TO IDMS STANDARD Performed By: #### SHEFALI, 2776-08, , BMP #### [facility] ([id number]) [address], [address] [place], [place] [address]YHM/1.73 sq M.predicted among non-blacks MDRD (S/P/Bld) [Vol rate/Area]87 mL/min/{1.73_m2}Normal>59ProPromedica Defiance Regional HospitalComment on above: Result Comment: Reported eGFR is based on the CKD-EPI 2020 equation that does not use a race coefficient.Performed By: #### SHEFALI, 2776-08, , BMP #### [facility] ([id number]) [address], [address] [place], [place] [address]Ibnakeg [Mass/Vol]91 mg/wXAwdcof38-68ZrtHhobws [facility] Comment on above:Performed By: #### SHEFALI, 2776-08, , BMP #### [facility] ([id number]) [address], [address] [place], [place] [address]Oretyupxi [Moles/Vol]3.2 mmol/LLow3.5-5.0ProMedica Robertson HospitalComment on above:Performed By: #### SHEFALI 2776-08, , BMP #### [facility] ([id number]) [address], [address] [place], [place] [address]Nkqnmo [Moles/Vol]141 mmol/SJbceiw069-335DjjZgogfa Robertson HospitalComment on above:Performed By: ###Lorenzo MEEHAN 2776-08, , BMP #### [facility] ([id number]) [address], [address] [place], [place] [address]Kkhu nitrogen [Mass/Vol]9 mg/dLNormal5-27ProMedica Robertson HospitalComment on above:Performed By: ###Lorenzo MEEHAN 2776-08, , BMP #### [facility] ([id number]) [address], [address] [place], [place] [address]HMS AND AUTO DIFFon 72-42-0472JVIOLNEZ BASOPHIL0.0 X10E9/LNormal 0.0-0.2ProMedica Robertson HospitalComment on above:Performed By: #### SHEFALI , , BMP #### [facility] ([id number]) [address], [address] [place], [place] [address]KYUSTLPI NEUTROPHIL3.9 X10E9/LNormal1.5-6.6ProMedica Robertson HospitalComment on above:Performed By: #### SHEFALI, 2776-08, , BMP #### [facility] ([id number]) [address], [address] [place], [place] [address]Pifrwtrfe/100 WBC (Bld)0.7 %NormalMercy Health St. Anne Hospital Comment on above:Performed By: #### SHEFALI, 2776-08, , BMP #### [facility] ([id number]) [address], [address] [place], [place] [address]Hsurgoahcru (Bld) [#/Vol]0.2 10*3/uLNormal0.0-0.4ProPromedica Defiance Regional HospitalComment on above:Performed By: #### SHEFALI, 2776-08, , BMP #### [facility] ([id number]) [address], [address] [place], [place] [address]Ofwdcmmdcge/100 WBC (Bld)3.0 %NormalMercy Health St. Anne Hospital Comment on above:Performed By: #### SHEFALI, 2776-08, , BMP #### [facility] ([id number]) [address], [address] [place], [place] [address]Nyaicqmdwxl distribution width (RBC) [Ratio]17.0 %High11.5-15.0 ProMevergreen medical centera University Hospitals Ahuja Medical CenterComment on above:Performed By: #### SHEFALI, 2776-08, , BMP #### [facility] ([id number]) [address], [address] [place], [place] [address]Nktttwlfeu (Bld) [Volume fraction]32.6 %Uxu87-01GsuEclqhwPromedica Defiance Regional HospitalComment on above:Performed By: #### SHEFALI, 2776-08, , BMP #### [facility] ([id number]) [address], [address] [place], [place] [address]Wxtumuhjgb (Bld) [Mass/Vol]10.9 g/dLLow11.7-15.5ProMedica Montgomery Village HospitalComment on above:Performed By: #### SHEFALI, 2776-08, , BMP #### [facility] ([id number]) [address], [address] [place], [place] [address]Hlyqawdzvuj (Bld) [#/Vol]1.4 10*3/uLNormal1.0-3.5ProMedMorrow County Hospital HospitalComment on above:Performed By: #### SHEFALI, 2776-08, , BMP #### [facility] ([id number]) [address], [address] [place], [place] [address]Xhpoymgjcjy/100 WBC (Bld)22.8 %NormalProMartins Ferry Hospital Hospital Comment on above:Performed By: #### SHEFALI, 2776-08, , BMP #### [facility] ([id number]) [address], [address] [place], [place] [address]TTS (RBC) [Entitic mass]30.6 jiFoopsx06-49HecJdnowt Robertson HospitalComment on above:Performed By: #### SHEFALI, 2776-08, , BMP #### [facility] ([id number]) [address], [address] [place], [place] [address]NTKZ (RBC) [Mass/Vol]33.5 g/ySVwekzm75-56VdbHjwbuw Robertson HospitalComment on above:Performed By: #### SHEFALI, 2776-08, , BMP #### [facility] ([id number]) [address], [address] [place], [place] [address]OKX (RBC) [Entitic vol]91 kPEaskcv64-777OahRtpyxv Robertson HospitalComment on above:Performed By: #### SHEFALI, 2776-08, , BMP #### [facility] ([id number]) [address], [address] [place], [place] [address]Dytvizcuu (Bld) [#/Vol]0.5 10*3/uLNormal0-0.9ProMedica Robertson HospitalComment on above:Performed By: #### SHEFALI, 2776-08, , BMP #### [facility] ([id number]) [address], [address] [place], [place] [address]Qzkwfedfn/100 WBC (Bld)8.0 %NormalMercy Health St. [facility] Hospital Comment on above:Performed By: #### SHEFALI, 2776-08, , BMP #### [facility] ([id number]) [address], [address] [place], [place] [address]Wxynpfspqip/100 WBC (Bld)65.5 %NormalMercy Health St. [facility] Hospital Comment on above:Performed By: #### SHEFALI, 2776-08, , BMP #### [facility] ([id number]) [address], [address] [place] [address]Rjasplkq mean volume (Bld) [Entitic vol]7.7 fLNormal7-12 ProMevergreen medical centera Montgomery Village HospitalComment on above:Performed By: #### SHEFALI, 2776-08, , BMP #### [facility] ([id number]) [address], [address] [place], [place] [address]Huohnyzsp (Bld) [#/Vol]186 10*3/pAAwliho680-155TigYuknuf [facility] HospitalComment on above:Performed By: #### SHEFALI, 2776-08, , BMP #### [facility] ([id number]) [address], [address] [place], [place] [address]WVL COUNT3.57 X10E12/LLow3.80-5.20ProPromedica [facility] Comment on above:Performed By: #### SHEFALI, 2776-08, , BMP #### [facility] ([id number]) [address], [address] [place], [place] [address]FVV (Bld) [#/Vol]6.0 10*3/uLNormal4.0-11.0Pro[facility]ica [facility] HospitalComment on above:Performed By: #### SHEFALI, 2776-08, , BMP #### [facility] ([id number]) [address], [address] [place], [place] [address]MGTPZPIEPjn 16-97-9649Ijalcvqmf [Mass/Vol]2.0 mg/dLNormal1.8-2.6 ProMevergreen medical centera Montgomery [facility] HospitalComment on above:Performed By: #### SHEFALI, 2776-08, , BMP #### [facility] ([id number]) [address] [place], [place] [address]ZQFQDCIQXKov 36-24-5791Vwwbpuxum [Mass/Vol]2.1 mg/dLLow2.4-4.9 ProMKettering Health Washington Township HospitalComment on above:Performed By: #### SHEFALI, 2776-08, , BMP #### [facility] ([id number]) [address], [address] [place], [place] [address]SRQXQ METABOLIC PANLon 72-02-1872Uyhmz gap [Moles/Vol]7 mmol/L Normal5-15[facility] HospitalComment on above:Performed By: #### 2777-1, DURAN, , CBCA #### [facility] ([id number]) [address], [address] [place], [place] [address]Qlzlhkx [Mass/Vol]7.5 mg/dLLow8.5-10.5[facility] Comment on above:Performed By: #### 277Lissa-1, DURAN, , CBCA #### [facility] ([id number]) [address], [address] [place], [place] [address]Qqeirbjw [Moles/Vol]111 mmol/JYqfp77-403WbeHwdxpbPromedica Defiance Regional HospitalComment on above:Performed By: #### 2777-1, DURAN, , CBCA #### [facility] ([id number]) [address], [address] [place], [place] [address]NP1 [Moles/Vol]24 mmol/QNrpsep69-67YweWfagjgChillicothe Hospital Comment on above:Performed By: #### 2777-1, DURAN, , CBCA #### [facility] ([id number]) [address], [address] [place], [place] [address]Axocpxbiyv [Mass/Vol]0.64 mg/dLNormal0.40-1.00ProPromedica Defiance Regional HospitalComment on above:Result Comment: METHOD TRACEABLE TO IDMS STANDARD Performed By: #### 2777-1, DURAN, , CBCA #### [facility] ([id number]) [address], [address] [place], [place] [address]CAX/1.73 sq M.predicted among non-blacks MDRD (S/P/Bld) [Vol rate/Area]87 mL/min/{1.73_m2}Normal>59ProPromedica Defiance Regional HospitalComment on above: Result Comment: Reported eGFR is based on the CKD-EPI 2020 equation that does not use a race coefficient.Performed By: #### 2777-1, DURAN, , CBCA #### [facility] ([id number]) [address], [address] [place], [place] [address]Atljfzb [Mass/Vol]101 mg/zQFila99-58EnrEfnjdyMercy Health St. Anne Hospital Comment on above:Performed By: #### 2777-1, DURAN, , CBCA #### [facility] ([id number]) [address], [address] [place], [place] [address]Japbqobxr [Moles/Vol]3.6 mmol/LNormal3.5-5.0Pro[facility] Robertson HospitalComment on above:Performed By: #### 2777-1, DURAN, , CBCA #### [facility] ([id number]) [address], [address] [place], [place] [address]Rbwasb [Moles/Vol]142 mmol/PAfkfcx665-861TrzIfynki Robertson HospitalComment on above:Performed By: #### 2777-1, DURAN, , CBCA #### [facility] ([id number]) [address], [address] [place], [place] [address]Ikon nitrogen [Mass/Vol]13 mg/dLNormal5-27[facility] Robertson HospitalComment on above:Performed By: #### 2777-Hilary, DURAN, , CBCA #### [facility] ([id number]) [address], [address] [place], [place] [address]MJR AND AUTO DIFFon [id number] BASOPHIL0.0 X10E9/LNormal 0.0-0.2[facility] Robertson HospitalComment on above:Performed By: #### 2777-1, DURAN, , CBCA #### [facility] ([id number]) [address], [address] [place], [place] [address]MDGDXOAH NEUTROPHIL4.4 X10E9/LNormal1.5-6.6[facility] Robertson HospitalComment on above:Performed By: #### 2777-1, DURAN, , CBCA #### [facility] ([id number]) [address], [address] [place], [place] [address]Uarjdijwp/100 WBC (Bld)0.5 %NormalProHenry County Hospitalca [facility] Comment on above:Performed By: #### 2777-1, DURAN, , CBCA #### [facility] ([id number]) [address], [address] [place], [place] [address]Bgjeuuneoij (Bld) [#/Vol]0.1 10*3/uLNormal0.0-0.4[facility] HospitalComment on above:Performed By: #### 2777-1, DURAN, , CBCA #### [facility] ([id number]) [address], [address] [place], [place] [address]Mfpudklykkn/100 WBC (Bld)1.6 %NormalProHenry County Hospitalca [facility] Comment on above:Performed By: #### 2777-1, DURAN, , CBCA #### [facility] ([id number]) [address], [address] [place], [place] [address]Tmaggkxmntv distribution width (RBC) [Ratio]16.8 %High11.5-15.0 [facility] [place] [facility] HospitalComment on above:Performed By: #### 2777-1, DURAN, , CBCA #### [facility] ([id number]) [address], [address] [place], [place] [address]Kezpjcsghl (Bld) [Volume fraction]27.6 %Pvc74-71MecMvxjji [facility] HospitalComment on above:Performed By: #### 2777-1, DURAN, , CBCA #### [facility] ([id number]) [address], [address] [place], [place] [address]Pbdurjqdab (Bld) [Mass/Vol]9.5 g/dLLow11.7-15.5[facility] HospitalComment on above:Performed By: #### 2777-1, DURAN, , CBCA #### [facility] ([id number]) [address], [address] [place], [place] [address]Fkrwogbzqac (Bld) [#/Vol]1.2 10*3/uLNormal1.0-3.5[facility] [place] [facility] HospitalComment on above:Performed By: #### 2777-1, DURAN, , CBCA #### [facility] ([id number]) [address], [address] [place], [place] [address]Vaxibqattop/100 WBC (Bld)19.2 %NormalProMartins Ferry Hospital Hospital Comment on above:Performed By: #### Constantino-1, DURAN, , CBCA #### [facility] ([id number]) [address], [address] [place], [place] [address]KWB (RBC) [Entitic mass]31.1 exIjlamu11-39DuzFocmmq [place] [facility] HospitalComment on above:Performed By: #### 2777-1, DURAN, , CBCA #### [facility] ([id number]) [address], [address] [place], [place] [address]HQWS (RBC) [Mass/Vol]34.3 g/tVLyjwbf26-79RjmZybagn [place] HospitalComment on above:Performed By: #### 2777-1, DURAN, , CBCA #### [facility] ([id number]) [address], [address] [place], [place] [address]PJR (RBC) [Entitic vol]91 jLCfhlbs04-350WxbYzfjjr [place] [facility] HospitalComment on above:Performed By: #### 2777-1, DURAN, , CBCA #### [facility] ([id number]) [address], [address] [place], [place] [address]Thrwsgkfl (Bld) [#/Vol]0.5 10*3/uLNormal0-0.9ProHenry County Hospitalca [place] [facility] HospitalComment on above:Performed By: #### 2777-1, DURAN, , CBCA #### [facility] ([id number]) [address], [address] [place], [place] [address]Oxrujrwuj/100 WBC (Bld)7.8 %NormalMer[facility] Health [facility]. [facility] Comment on above:Performed By: #### 2777-1, BMP, , CBCA #### [facility] ([id number]) [address], [address] [place], [place] [address]Muvbwdzckqj/100 WBC (Bld)70.9 %NormalMercy Health St. [facility] Comment on above:Performed By: #### 2777-1, BMP, , CBCA #### [facility] ([id number]) [address], [address] [place], [place] [address]Yfscyyci mean volume (Bld) [Entitic vol]7.7 fLNormal7-12 [facility]ja Medical CenterComment on above:Performed By: #### 2777-1, DURAN, , CBCA #### [facility] ([id number]) [address] [place], [place] [address]Bnzpeksgf (Bld) [#/Vol]185 10*3/cYInhqlg895-774VhpGgihnj [facility] HospitalComment on above:Performed By: #### 2777-1, DURAN, , CBCA #### [facility] ([id number]) [address], [address] [place], [place] [address]QQC COUNT3.04 X10E12/LLow3.80-5.20[facility] Comment on above:Performed By: #### 2777-1, DURAN, , CBCA #### [facility] ([id number]) [address], [address] [place], [place] [address]DRU (Bld) [#/Vol]6.2 10*3/uLNormal4.0-11.0ProMartins Ferry Hospital HospitalComment on above:Performed By: #### 2777-1, DURAN, 72269-0, CBCA #### [facility] ([id number]) [address], [address] [place] [address]MBBSGLWIWxg 38-82-2171Wfovbugzp [Mass/Vol]1.9 mg/dLNormal1.8-2.6 [facility] [place] [facility] HospitalComment on above:Performed By: #### 2777-1, BMP, , CBCA #### [facility] ([id number]) [address], [address] [place] [address]FUYITSDJEUrb 53-39-9549Kdbiitkoh [Mass/Vol]2.5 mg/dLNormal 2.4-4.9[facility] [place] [facility] HospitalComment on above:Performed By: #### SHEFALI, 27702-14, , BMP #### [facility] ([id number]) [address], [address] [place], [place] [address]FZNML METABOLIC PANLon 09-40-9403Jezwy gap [Moles/Vol]9 mmol/L Normal5-15[facility] [place] [facility] HospitalComment on above:Performed By: #### SHEFALI, 2776-08, , BMP #### [facility] ([id number]) [address] [place], [place] [address]Rlimsdp [Mass/Vol]7.6 mg/dLLow8.5-10.5[facility] Comment on above:Performed By: #### SHEFALI, 27702-14, , BMP #### [facility] ([id number]) [address], [address] [place], [place] [address]Jskpaorr [Moles/Vol]110 mmol/ORdvc46-706WjpTpmblx [facility] HospitalComment on above:Performed By: #### SHEFALI, 277-, , BMP #### [facility] ([id number]) [address], [address] [place], [place] [address]TY4 [Moles/Vol]21 mmol/VBjw69-28KnmTylktqLakeHealth Beachwood Medical CenterComment on above:Performed By: #### SHEFALI, 2776-08, , BMP #### [facility] ([id number]) [address], [address] [place], [place] [address]Xvezbzsugm [Mass/Vol]0.70 mg/dLNormal0.40-1.00ProPromedica Defiance Regional HospitalComment on above:Result Comment: METHOD TRACEABLE TO IDMS STANDARD Performed By: #### SHEFALI, 2776-08, , BMP #### [facility] ([id number]) [address], [address] [place], [place] [address]IHF/1.73 sq M.predicted among non-blacks MDRD (S/P/Bld) [Vol rate/Area]85 mL/min/{1.73_m2}Normal>59ProPromedica Defiance Regional HospitalComment on above: Result Comment: Reported eGFR is based on the CKD-EPI 2020 equation that does not use a race coefficient.Performed By: #### SHEFALI 2776-08, , BMP #### [facility] ([id number]) [address], [address] [place], [place] [address]Uwxyqgp [Mass/Vol]105 mg/bHTiyy76-95JwnWdxqsw [facility] Comment on above:Performed By: #### SHEFALI 2776-08, , BMP #### [facility] ([id number]) [address] [place], [place] [address]Tcqlvwbop [Moles/Vol]3.2 mmol/LLow3.5-5.0ProPromedica Defiance Regional HospitalComment on above:Performed By: #### SHEFALI, 2776-08, , BMP #### [facility] ([id number]) [address], [address] [place], [place] [address]Ehmqng [Moles/Vol]140 mmol/HUxwnaf455-050ZgvFeesth [place] HospitalComment on above:Performed By: #### SHEFALI, 2776-08, , BMP #### [facility] ([id number]) [address], [address] [place], [place] [address]Ouqc nitrogen [Mass/Vol]16 mg/dLNormal5-27[facility] HospitalComment on above:Performed By: #### SHEFALI, 2776-08, , BMP #### [facility] ([id number]) [address], [address] [place], [place] [address]XPF AND AUTO DIFFon 29-32-6173DFYVXNDU BASOPHIL0.0 X10E9/LNormal 0.0-0.2[facility] HospitalComment on above:Performed By: #### SHEFALI , , BMP #### [facility] ([id number]) [address], [address] [place], [place] [address]ULOFNSFP NEUTROPHIL6.4 X10E9/LNormal1.5-6.6[facility] HospitalComment on above:Performed By: #### SHEFALI, 2776-08, , BMP #### [facility] ([id number]) [address], [address] [place], [place] [address]Dgkawvejl/100 WBC (Bld)0.4 %NormalProMartins Ferry Hospital Hospital Comment on above:Performed By: #### SHEFALI 2776-08, , BMP #### [facility] ([id number]) [address], [address] [place], [place] [address]Oymhjmcdegd (Bld) [#/Vol]0.1 10*3/uLNormal0.0-0.4[facility] HospitalComment on above:Performed By: #### SHEFALI, 2776-08, , BMP #### [facility] ([id number]) [address], [address] [place], [place] [address]Rmdthlhijoi/100 WBC (Bld)1.2 %NormalMercy Health St. [facility] Comment on above:Performed By: #### SHEFALI, 2776-08, , BMP #### [facility] ([id number]) [address], [address] [place], [place] [address]Mxtubpmecqo distribution width (RBC) [Ratio]17.0 %High11.5-15.0 [facility] [place] [facility] HospitalComment on above:Performed By: #### SHEFALI, 2776-08, , BMP #### [facility] ([id number]) [address], [address] [place], [place] [address]Nnfdkrpksp (Bld) [Volume fraction]29.4 %Ztp29-38KxxRcvuwo [place] HospitalComment on above:Performed By: #### SHEFALI, 2776-08, , BMP #### [facility] ([id number]) [address], [address] [place], [place] [address]Jxtzugzesj (Bld) [Mass/Vol]10.1 g/dLLow11.7-15.5ProMedMorrow County Hospital HospitalComment on above:Performed By: #### SHEFALI, 2776-08, , BMP #### [facility] ([id number]) [address], [address] [place], [place] [address]Wajvgwmtxai (Bld) [#/Vol]1.1 10*3/uLNormal1.0-3.5ProMedMorrow County Hospital HospitalComment on above:Performed By: #### SHEFALI, 2776-08, , BMP #### [facility] ([id number]) [address], [address] [place], [place] [address]Uowgojsepjt/100 WBC (Bld)13.9 %NormalMercy Health St. [facility] Comment on above:Performed By: #### SHEFALI, 2776-08, , BMP #### [facility] ([id number]) [address], [address] [place], [place] [address]TFN (RBC) [Entitic mass]31.2 wwRrgsyq81-49GjiLbujsj [facility] HospitalComment on above:Performed By: #### SHEFALI, 2776-08, , BMP #### [facility] ([id number]) [address], [address] [place], [place] [address]IFJJ (RBC) [Mass/Vol]34.4 g/uYLslicx79-07OhkEcekjl [facility] HospitalComment on above:Performed By: #### SHEFALI, 2776-08, , BMP #### [facility] ([id number]) [address], [address] [place], [place] [address]AFN (RBC) [Entitic vol]91 rKLgdogs50-678EjvZmaqqv [facility] HospitalComment on above:Performed By: #### SHEFALI, 2776-08, , BMP #### [facility] ([id number]) [address], [address] [place], [place] [address]Ewdltjkao (Bld) [#/Vol]0.5 10*3/uLNormal0-0.9[facility] HospitalComment on above:Performed By: #### SHEFALI, 2776-08, , BMP #### [facility] ([id number]) [address] [place], [place] [address]Wqwtapirj/100 WBC (Bld)6.2 %NormalProMedica [facility] Comment on above:Performed By: #### SHEFALI, 2776-08, , BMP #### [facility] ([id number]) [address], [address] [place], [place] [address]Wuhlfgrpshk/100 WBC (Bld)78.3 %NormalProMedica [facility] Comment on above:Performed By: #### SHEFALI, 2776-08, , BMP #### [facility] ([id number]) [address], [address] [place], [place] [address]Wbzyjduo mean volume (Bld) [Entitic vol]7.4 fLNormal7-12 ProMKettering Health Washington Township HospitalComment on above:Performed By: #### SHEFALI, 2776-08, , BMP #### [facility] ([id number]) [address], [address] [place], [place] [address]Ghmlaxujx (Bld) [#/Vol]205 10*3/zIDucmzw026-719PaaHoqplo [place] HospitalComment on above:Performed By: #### SHEFALI, 2776-08, , BMP #### [facility] ([id number]) [address], [address] [place], [place] [address]WUJ COUNT3.24 X10E12/LLow3.80-5.20[facility] Comment on above:Performed By: #### SHEFALI, 2776-08, , BMP #### [facility] ([id number]) [address], [address] [place], [place] [address]FIE (Bld) [#/Vol]8.2 10*3/uLNormal4.0-11.0ProPromedica Defiance Regional HospitalComment on above:Performed By: #### SHEFALI, 2776-08, , BMP #### [facility] ([id number]) [address], [address] [place], [place] [address]QMMTLGQAUic 44-55-9672Smimklrdh [Mass/Vol]2.0 mg/dLNormal1.8-2.[address] [facility] HospitalComment on above:Performed By: #### SHEFALI, 2776-08, , BMP #### [facility] ([id number]) [address], [address] [place], [place] [address]AKCPGZFYQUqa 84-11-0366Ygynatwaw [Mass/Vol]2.9 mg/dLNormal 2.4-4.9ProPromedica Defiance Regional HospitalComment on above:Performed By: #### 2777-1, 2823-3 #### [facility] ([id number]) [address], [address] [place], [place] [address]Aiqqmrsdr [Mass/Vol]2.3 mg/dLLow2.4-4.9ProMart[facility]erry Hospital Hospital Comment on above:Performed By: #### CBCA, 2777-1, 50218-5, BMP #### [facility] ([id number]) [address] [place], [place] [address]HRYONPZRSfc 53-11-1822Xpntsxzmd [Moles/Vol]3.5 mmol/LNormal 3.5-5.0ProMartins Ferry Hospital HospitalComment on above:Performed By: #### 2823-3 #### [facility] ([id number]) [address], [address] [place], [place] [address]Lmlydxtcj [Moles/Vol]3.3 mmol/LLow3.5-5.0ProPromedica Defiance Regional HospitalComment on above:Performed By: #### 2777-1, 2823-3 #### [facility] ([id number]) [address], [address] [place], [place] [address]RF Chest 2 Viewson 58-42-7427Niaac bilateral pleural effusions Stable cardiomegaly MHPN RIS CONSOLIDATEDEXAMINATION: TWO XRAY VIEWS OF THE CHEST 12/17/2023 10:54 am COMPARISON: 04/02/2022 HISTORY: ORDERING SYSTEM PROVIDED HISTORY: History of chest pain FINDINGS: Transvenous pacer remains in place. Aortic stent in place. Stable cardiomegaly. Small bilateral pleural effusions. No pneumothorax. No focal airspace disease. MHPN RIS Juan Carlos Philip MD - 12/17/2023 EXAMINATION: TWO XRAY VIEWS OF THE CHEST 12/17/2023 10:54 am COMPARISON: 04/02/2022 HISTORY: ORDERING SYSTEM PROVIDED HISTORY: History of chest pain FINDINGS: Transvenous pacer remains in place. Aortic stent in place. Stable cardiomegaly. Small bilateral pleural effusions. No pneumothorax. No focal airspace disease. IMPRESSION: Small bilateral pleural effusions Stable cardiomegaly [facility] iMICROQRadiology Study observation (narrative)[facility] iMICROQ Chest 2 ViewsOrdered By: Juan Carlos Graff on 76-05-4979MJX iMICROQ Work Phone: [place] 40-91-0680Fuqsied [id number]#1.00[facility] HospitalAmbulatory Visit Summaryon 10-67-1684Npdrklilrd Visit Summary LEYLA LAMBERT :1940 Visit Date:06/19/2023 [...] 4% Soap) fludrocortisone (fludrocortisone 0.1 mg Tab) fluticasone/umeclidinium/vilanterol (Trelegy Ellipta 100 mcg-62.5 mcg-25 mcg inhalation [...] CLARK, Lou Kendall Where: [facility] Educationon 02-47-8014Ilsekns EducationObstetrics and Gynecology Kegel Exercises Kegel exercises can [...] provider. Document Revised: 12/12/2021 Document Reviewed: 12/12/2021 Inform Direct Patient Education ? 2022 Simphatic.[facility] Urology Office/Clinic Noteon 27-16-8747Mbglrcv Office/Clinic NoteChief Complaint F/U for Nocturia HPI Staff RWR [...] grade 2 trabeculation, smaller capacity bladder, spontaneous detrusoractivity at 150mL, no signs of stress incontinence with coughing and straining Has previously taken Oxybutynin 5mg, d/c due to having stomach issues. Wears pads during the night, urinary frequency. PVR 18ml -Main issue at night. See #1. -Follow up in 8 mos. All questions/concerns were discussed. Pt to call the office if she encountersany issues prior. Pt acknowledges understanding. 4. Anticoagulated (Z79.01: FDC (current) 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s) Warfarin 5mg qd -being transitioned to Eliquis. Elevated risk of perioperative complications Orders: mirabegron, 25 mg = 1 tab(s), Oral, Daily, # 30 tab(s), Refills(s) 6, Pharmacy: [facility], 161, cm, 06/19/23 13:26:00 EDT, Height/Length Dosing, 51.5, kg, 06/19/23 13:26:00 EDT, Weight Dosing oxybutynin, 5 mg = 1 tab(s), Oral, qPM, # 30 tab(s), Refills(s) 6, Pharmacy: [facility] 1429,161, cm, 06/19/23 13:26:00 EDT, Height/Length Dosing, 51.5, [...] for the patient. Follow (more content not included)...[facility] HospitalComment on above:Result Comment: Electronically Signed By: Lou Lacy MD.br\Date and Time Signed: 06/19/23 14:36EDT\.br\Electronically Co-Signed By: Delia Balderrama.br\Date and Time Co-Signed: 06/19/23 13:59 EDTProtime-INRon 04-30-2023 INR Coag (Bld) [Relative time]2.4 {INR}[facility] HOSPITALProtime-INRon 34-01-2139WLF Coag (Bld) [Relative time]2.1 {INR}FLORY CAGE [facility] CENTERBrissa [facility] NILES [facility] CENTERBrissa HEALTHProtime-INRon 23-36-5942SWL Coag (Bld) [Relative time]1.8 {INR}FLORY CAGE [facility] CENTERBrissa [facility] HOSPITALJACKELYN [facility]ENTERBrissa [facility] NORTHPatient Educationon 83-89-3851Rmjhpok EducationObstetrics and Gynecology Overactive Bladder, Adult Overactive bladder [...] as stroke, dementia, Parkinson's disease, or multiple sclerosis(MS). ? Eat or drink alcohol, spicy food, [...] health care provider. General instructions ? Take pkpi-rcf-tenegau and prescription medicines only as told by [...] care provider monitor yo (more content not included)...[facility] HospitalUrology Office/Clinic Noteon 73-62-2879Goenjic Office/Clinic NoteChief Complaint pt here today for a 2 [...] Nocturia) 2-3x a night 4. 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 Archuleta on 02/02/2023 15:37:22. . Portions of this record may have been created with voice recognition artificial intelligence software, specifically [employer], LifeScribe and or [employer]. Substitutions may have occurred due to the [...] Trelegy Ellipta 100 mcg- (more content not included)...[facility] HospitalComment on above:Result Comment: Electronically Signed By: KATHE CLARK, Isauro More\.br\Date and Time Signed: 02/02/23 15:55 EDT\.br\Electronically Co- Signed By: Angelica Montesinos MA\.br\Date and Time Co-Signed: 02/02/23 15:37 EDT Protime-INRon 93-56-1688BGG Coag (Bld) [Relative time]3.4 {INR}[facility] [employer] Phone: bon [employer] Phone: [phone]-VFPbo 94-48-6376QYF Coag (Bld) [Relative time] 1.9 {INR}[facility] [employer] Phone: bon [employer] Phone: cNOVon 31-18-8100THZBKinfyc Visit (ORTHIN) LEYLA LAMBERT ([id number]) 1940 F Date Time Provider Department 12/10/22 11:45 AM NGUYỄN JEANIN During your visit today, we recorded the [...] Plan. This note was partially generated using [employer] voice recognition system. Referring Provider: NGUYỄN JEAN [[id number]] Allergies As of Date: 12/10/2022 Noted Allergy Reaction ACETAMINOPHEN-CODEINE 03/31/2011 16 - Unknown 8 - GI Upset COBALT 07/20/2014 14 - Other: See Comments Comments: sim GOLD AU 198 07/20/2014 5 - Intolerance Comments: [...] 1 tablet by mouth once daily. - xgpymcfriov-jpxauaykg-bgtpsvkq (TRELEGY ELLIPTA) 100-62.5-25 mcg Inhale 1 Puff [...] [M25.462] 03/24/2020 Hypothyroidism [E03.9 (more content not included)...NormalCleveland Clinic [facility] Lodi HospitalXR KNEE 3V AP/LAT/MERCHANT RTon 93-52-7399XR KNEE 3V AP/LAT/MERCHANT RT * * *Final [...] other significant abnormality. IMPRESSION: No appreciable change. Relationship Mgr: PSCB Transcribe Date/Time: Dec 10 2022 10:42A Dictated by : MARGARETH RODRIGUEZ MD This examination was interpreted and the report reviewed and electronically signed by: MARGARETH RODRIGUEZ MD on Dec 10 2022 10:51AM EST [id number] Hospital Knee AP and Lateral and Merchantson 97-13-6195GIEQJTPSWX: No appreciable change. Relationship Mgr: PSCB Transcribe Date/Time: Dec 10 2022 10:42A Dictated by : MARGARETH RODRIGUEZ MD This examination was interpreted and the report reviewed and electronically signed by: MARGARETH RODRIGUEZ MD on Dec 10 2022 10:51AM EST DIVISION OF RADIOLOGY* * *Final Report* * * DATE OF [...] swelling. No other significant abnormality. [facility]YPro[facility]init[facility] [place] - 12/10/2022 * * *Final Report* * [...] significant abnormality. IMPRESSION IMPRESSION: No appreciable change. Relationship Mgr: RIKA Transcribe Date/Time: Dec 10 2022 10:42A Dictated by : MARGARETH RODRIGUEZ MD This examination was interpreted and the report reviewed and electronically signed by: MARGARETH RODRIGUEZ MD on Dec 10 2022 10:51AM EST [facility] SystemRadiology Study observation (narrative)[facility] Hospitals Health SystemXR Knee AP and Lateral and MerchantsOrdered By: Ccf Provider on 80-72-9809Ecreqahew ClinicProtime-INRon 88-12-7804EFQ Coag (Bld) [Relative time]1.7 {INR}[facility] [employer] Work Phone: bON [employer] Work Phone: patient Educationon 53-49-0773Bafrunv Education Obstetrics and Gynecology Overactive Bladder, Adult [...] as stroke, dementia, Parkinson's disease, or multiple sclerosis(MS). ? Eat or drink things that irritate [...] pelvic floor muscles, which support your bladder. Toningthese muscles can help you control urination, even [...] weight loss methods that would work best foryou. ? Diet changes. This may include reducing [...] instructions ? Take ove (more content not included)...[facility] Office/Clinic Noteon 44-02-2658Xxmbpmp Office/Clinic NoteChief Complaint 8 month follow up HPI Staff Pt is here today for 8 month follow up to starting Oxybutynin. Previous DX: cyst of Lt kidney, mixed incontinence, nocturia. Pt is unable to give urine sample today. Pt is currently taking Gekehifqsu7bq and would like to discuss increasing the [...] did not happen that is why I didnot change her medications. They dilate her esophagus [...] Follow-up With When Contact Information KATHE CLARK, MIKKI Bunn Within [address] [place], [place] [phone] Additional Instructions: 2 month follow up Patient [...] ago Tobacco Use:. Neve (more content not included)...NormalFisher Humboldt Medical CenterComment on above:Result Comment: Electronically Signed By: Isuaro ARCHULETA MD\.br\Date and Time Signed: 12/01/22 15:50 EDT\.br\Electronically Co-Signed By: Angelica Montesinos MA\.br\Date and Time Co-Signed: 12/01/22 15:14 EDTProtime-INRon 66-91-1779PNG Coag (Bld) [Relative time]2.2 {INR}[facility] [employer] Work Phone: [facility] [employer] Phone: vL DUP LOWER EXTREMITY VENOUS BILATERALon 11-24-2022 Khari Lira DO - 11/24/2022 [facility] Vascular Lower Extremities DVT Study Procedure Patient Name PETRA MAYER Date of Study 11/24/2022 A Date of 1940 Gender Female Age 82 year(s) Race Room Number Corporate ID # [id number] Patient MR # [id number] Housekeeping/Laundry Supervisor Darshana Thorne RVT Interpreting Physician Khari Lira DO Referring Referring [...] + + + + Right Doppler Measurements + +------+------+ + !Location !Signal!Reflux!Reflux (msec) ! + +------+------+ + !Common Femoral !Phasic! ! ! + +------+------+ + !Prox Femoral !Phasic! ! ! + +------+------+ + !Popliteal !Phasic! ! ! + +------+------+ + Left Lower Extremities DVT Study Measurements Left 2D Measurements + + + + + !Location !Visualized!Compressibility!Thrombosis! + + + +-- (more content not included)...[place] Phone: radiology Study observation (narrative)[facility] [employer] Phone: VL DUP LOWER EXTREMITY VENOUS BILATERALOrdered By: Khari Lira on [id number] [employer] Phone: xr Knee AP and Lateral and [facility] 07-02-2022 IMPRESSION: No significant change in the overall appearance or alignment of the knee arthroplasty. Relationship Mgr: RIKA Transcribe Date/Time: Jul 02 2022 12:45P Dictated by : EPI RAWLS MD This examination was interpreted and the report reviewed and electronically signed by: EPI RAWLS MD on Jul 02 2022 12:48PM EST DIVISION OF RADIOLOGY* * *Final Report* * * DATE OF [...] acute fracture. No osseous erosion. DIVISION OF RADIOLOGYProvider, [facility] [place] - 07/02/2022 * * *Final Report* * [...] appearance or alignment of the knee arthroplasty. Relationship Mgr: PSCB Transcribe Date/Time: Jul 02 2022 12:45P Dictated by : EPI RAWLS MD This examination was interpreted and the report reviewed and electronically signed by: EPI RAWLS MD on Jul 02 2022 12:48PM EST [facility]als Health SystemRadiology Study observation (narrative)University Hospitals Health SystemXR Knee AP and Lateral and MerchantsOrdered By: [facility] Provider on 41-88-6157Jkbfyifhn ClinicProtime-INRon 83-06-8873TOK Coag (Bld) [Relative time]1.5 {INR}BON [employer] Work Phone: bon iMICROQ Work Phone: cBC W Auto Differential panel (Bld)on 06-13-2022 Basophils (Bld) [#/Vol]0.08 10*3/uLNormal<0.11Avon HospitalComment on above: Order Comment: Specimen Type: BLOOD SPECIMEN Ordering Facility: [facility] Address: [address] [place], [place] [address]Performed By: #### 1987-12 #### [facility] CLIA [id number] [place] [address] [place] AMERICABasophils/100 WBC (Bld)1.2 %NormalAv HospitalComment on above:Order Comment: Specimen Type: BLOOD SPECIMEN Ordering Facility: [facility] Address: [address] [place], [place] [address]Performed By: #### 1987-12 #### [facility] CLIA [id number] [place] [address] [place] AMERICADifferential cell count method Nom (Bld) AutoNormalAvon HospitalComment on above:Order Comment: Specimen Type: BLOOD SPECIMEN Ordering Facility: [facility] Address: [address] [place], [place] [address]Performed By: #### 1987-12 #### [facility] CLIA [id number] [place] [address] [place] AMERICAEosinophils (Bld) [#/Vol]0.23 10*3/uL Normal<0.46Avon HospitalComment on above:Order Comment: Specimen Type: BLOOD SPECIMEN Ordering Facility: [facility] Address: [address] [place], [place] [address]Performed By: #### 1987-12 #### [facility] CLIA [id number] [place] [address] [place] AMERICAEosinophils/100 WBC (Bld)3.6 %NormalAv HospitalComment on above:Order Comment: Specimen Type: BLOOD SPECIMEN Ordering Facility: [facility] Address: [address] [place], [place] [address]Performed By: #### 1987-12 #### [facility] IA [id number] [address] [place] [address] [place] AMERICAErythrocyte distribution width (RBC) [Ratio]16.6 %High11.5-15.0Avon HospitalComment on above:Order Comment: Specimen Type: BLOOD SPECIMEN Ordering Facility: [facility] Address: [address] [place], [place] [address]Performed By: #### 1987-12 #### [facility] IA [id number] [place] [address] [place] OF AMERICAHematocrit (Bld) [Volume fraction]35.1 % Low36.0-46.0Av HospitalComment on above:Order Comment: Specimen Type: BLOOD SPECIMEN Ordering Facility: [facility] Address: [address] [place], [place] [address]Performed By: #### 1987-12 #### [facility] IA [id number] [place] [address] [place] AMERICAHemoglobin (Bld) [Mass/Vol]10.9 g/dLLow 11.5-15.5Avon HospitalComment on above:Order Comment: Specimen Type: BLOOD SPECIMEN Ordering Facility: [facility] Address: [address] [place], [place] [address]Performed By: #### 1987-12 #### [facility] IA [id number] [place] [address] [place] AMERICAImmature granulocytes (Bld) [#/Vol] 10*3/uLNormal<0.10Avon HospitalComment on above:Order Comment: Specimen Type: BLOOD SPECIMEN Ordering Facility: [facility] Address: [address] [place], [place] [address]Performed By: #### 1987-12 #### [facility] IA [id number] [place] [address] [place] AMERICAImmature granulocytes/100 WBC (Bld)0.3 % NormalAv HospitalComment on above:Order Comment: Specimen Type: BLOOD SPECIMEN Ordering Facility: [facility] Address: [address] [place], [place] [address]Performed By: #### 1987-12 #### [facility] IA [id number] [address] [place] [address] [place] AMERICALymphocytes (Bld) [#/Vol]1.13 10*3/uL Normal1.00-4.00Av HospitalComment on above:Order Comment: Specimen Type: BLOOD SPECIMEN Ordering Facility: [facility] Address: [address] [place], [place] [address]Performed By: #### 1987-12 #### [facility] IA [id number] [address] [place] [address] [place] AMERICALymphocytes/100 WBC (Bld)17.5 %NormalAv HospitalComment on above:Order Comment: Specimen Type: BLOOD SPECIMEN Ordering Facility: [facility] Address: [address] [place], [place] [address]Performed By: #### 1987-12 #### [facility] IA [id number] [address] [place] [address] [facility] (RBC) [Entitic mass]28.3 pgNormal 26.0-34.0Av HospitalComment on above:Order Comment: Specimen Type: BLOOD SPECIMEN Ordering Facility: [facility] Address: [address] [place], [place] [address]Performed By: #### 1987-12 #### [facility] IA [id number] [address] [place] [address] [facility] (RBC) [Mass/Vol]31.1 g/dLNormal 30.5-36.0Av HospitalComment on above:Order Comment: Specimen Type: BLOOD SPECIMEN Ordering Facility: [facility] Address: [address] [place], [place] [address]Performed By: #### 1987-12 #### [facility] IA [id number] [place] [address] [place] AMERICAMCV (RBC) [Entitic vol]91.2 fLNormal 80.0-100.0Av HospitalComment on above:Order Comment: Specimen Type: BLOOD SPECIMEN Ordering Facility: [facility] Address: [address] [place], [place] [address]Performed By: #### 1987-12 #### [facility] IA [id number] [address] [place] [address] [place] AMERICAMonocytes (Bld) [#/Vol]0.52 10*3/uLNormal <0.87Av HospitalComment on above:Order Comment: Specimen Type: BLOOD SPECIMEN Ordering Facility: [facility] Address: [address] [place], [place] [address]Performed By: #### 1987-12 #### [facility] IA [id number] [place] [address] [place] AMERICAMonocytes/100 WBC (Bld)8.0 %NormalAv HospitalComment on above:Order Comment: Specimen Type: BLOOD SPECIMEN Ordering Facility: [facility] Address: [address] [place], [place] [address]Performed By: #### 1987-12 #### [facility] IA [id number] [place] [address] [place] AMERICANeutrophils (Bld) [#/Vol]4.48 10*3/uL Normal1.45-7.50Av HospitalComment on above:Order Comment: Specimen Type: BLOOD SPECIMEN Ordering Facility: [facility] Address: [address] [place], [place] [address]Performed By: #### 1987-12 #### [facility] IA [id number] [place] [address] [place] AMERICANeutrophils/100 WBC (Bld)69.4 %NormalAv HospitalComment on above:Order Comment: Specimen Type: BLOOD SPECIMEN Ordering Facility: [facility] Address: [address] [place], [place] [address]Performed By: #### 1987-12 #### [facility] IA [id number] [address] [facility] [address] [place] AMERICANucleated RBC (Bld) [#/Vol]10*3/uLNormal <0.01Avon HospitalComment on above:Order Comment: Specimen Type: BLOOD SPECIMEN Ordering Facility: [facility] Address: [address] [place], [place] [address]Performed By: #### 1987-12 #### [facility] IA [id number] [address] [place] [address] [place] AMERICANucleated RBC/100 WBC (Bld) [Ratio]0.0 /100 WBCNormalAvon HospitalComment on above:Order Comment: Specimen Type: BLOOD SPECIMEN Ordering Facility: [facility] Address: [address] [place], [place] [address]Performed By: #### 1987-12 #### [facility] IA [id number] [facility] [address] [place] AMERICAPlatelet mean volume (Bld) [Entitic vol] 9.7 fLNormal9.0-12.7Avon HospitalComment on above:Order Comment: Specimen Type: BLOOD SPECIMEN Ordering Facility: [facility] Address: [address] [place], [place] [address]Performed By: #### 1987-12 #### [facility] IA [id number] [address] [facility] [place] [address] [place] AMERICAPlatelets (Bld) [#/Vol]317 10*3/uLNormal 150-400Avon HospitalComment on above:Order Comment: Specimen Type: BLOOD SPECIMEN Ordering Facility: [facility] Address: [address] [place], [place] [address]Performed By: #### 1987-12 #### [facility] IA [id number] [address] [facility] [place] [address] [place] AMERICARBC (Bld) [#/Vol]3.85 10*6/uLLow3.90-5.20 [facility] HospitalComment on above:Order Comment: Specimen Type: BLOOD SPECIMEN Ordering Facility: [facility] Address: [address] [place] [address]Sfflwmpju By: #### 1987-12 #### [facility] CLIA [id number] [address] [facility] [address] [place] AMERICAWBC (Bld) [#/Vol]6.46 10*3/uLNormal 3.70-11.00Springfield HospitalComment on above:Order Comment: Specimen Type: BLOOD SPECIMEN Ordering Facility: [facility] Address: [address] [place] [address]Bkrghihvd By: #### 1987-12 #### [facility] CLIA [id number] [facility] [address] [facility] NOTEon [id number] NOTEHNO ID: [id number] Author: Carmen Villanueva RN Service: ? Author Type: Registered Nurse Type: ED Notes Filed: 06/13/2022 4:17 PM Note Text: Written and verbal discharge instructions reviewed with patient at bedside. Patient verbalized understanding. Patient discharged home in stable condition.[facility] NOTEon 28-23-7673SB [facility] NOTEHNO ID: [id number] Author: Juan Carlos Nazario PA-C Service: Emergency Medicine Author Type: Physician Oral And Maxillofacial Pathologist Type: ED Provider Notes Filed: 06/13/2022 4:15 [...] Coronary atherosclerosis of unspecified type of vessel, [place] or graft s/p stents x 2 to [...] SPX Right 2014 Arthroscopy, knee ARTHRP KNE CONDYLEANDPLATU MEDIALANDLAT COMPARTMENTS Right 2013 Knee replacement, total CHOLECYSTECTOMY LEFT HEART CATH,PERCUTANEOUS 2009, 2014,2016, 2017, 2021 MAST MODF RAD W/AX LYMPH NOD W/WO PECT/DESTINY MIN 1989,1991 bilateral MIDLINE INSERTION/CONSULT 06/20/2018 PAST [...] ALLERGIES Allergen Reactions Acetaminophen-Codei* Unknown, GI Upset [place] Other: See Comments sim Tenorio Au 198 [...] of ciprofloxacin is complete (more content not included)...[facility] CenterIR CVC TUNNEL NO PORT REMOVEon 91-48-8709LJ CVC TUNNEL NO PORT REMOVE* * *Final Report* * * DATE OF EXAM: Jun 13 2022 12:52PM [facility] 7670 - IR CVC TUNNEL NO PORT [...] Naila Cade M.D. ADVANCED PRACTICE PROVIDER: None POULTRY OFFAL WORKER: None The procedure was performed by the: attending radiologist, without an library services assistant. The attending radiologist performed the following procedural activities: Entire procedure IMPRESSION: SUCCESSFUL REMOVAL OF RIGHT TUNNELED CENTRAL VENOUS CATHETER. CATHETER INTACT UPON REMOVAL AND REMOVED IN ITS ENTIRELY. Relationship Mgr: RIKA Transcribe Date/Time: Jun 13 2022 1:02P Dictated by : NAILA CADE MD This examination was interpreted and the report reviewed and electronically signed by: NAILA CADE MD on Jun 13 2022 1:05PM EST [id number] LakeView HospitalPT EDon 16-12-4313MU EDHNO ID: [id number] Author: Wenceslao Rogers RN Service: Nursing Author [...] REFERRAL (RECOMMENDATION): None Electronically Signed By: Wenceslao JacobSt. Joseph's Hospital of HuntingburgPT panel Coag (PPP) on 16-54-8565OLY Coag (PPP) [Relative time]1.1 {INR}Normal0.9-1.3AvoLutheran Hospital of Indiana Comment on above:Order Comment: Specimen Type: BLOOD SPECIMEN Ordering Facility: [facility] Address: [address] [place] [address]Adsfmc Comment: Vitamin K Antagonist (VKA) Therapeutic Range: INR 2 to 3 (Target INR of 2.5) Note: For patients treated with VKA drugs, such as warfarin, the [place] [employer] 2012 Guideline recommends [...] Chest 2012, 141:7S-47S Nat RA, et al. [facility] 2017, 70: 252-289Performed By: #### 23310-8, 91243-5 #### [facility] CLIA [id number] [address] [place] [address] [place] [facility]OPLES HOSPITALPT Coag (PPP) [Time]11.1 sNormal9.7-13.0 Springfield HospitalComment on above:Order Comment: Specimen Type: BLOOD SPECIMEN Ordering Facility: [facility] Address: [address] [address]Performed By: #### 42360-7, 24837-7 #### [facility] IA [id number] STATES OF AMERICAaPTT PPPon 55-91-6354lDPH Coag (PPP) [Time]25.1 gYdzrqh06.0-32.4[facility] HospitalComment on above:Order Comment: Specimen Type: BLOOD SPECIMEN Ordering Facility: [facility] Address: [address] [id number] By: #### 04499-2, 79019-7 #### [facility] IA [id number] [address] [address] [id number] [place] AMERICAProtime-INRon 36-70-5895IEA Coag (Bld) [Relative time]1.3 {INR}[facility]ON [employer] Work Phone: bON VirnetX Phone: cNPNon 60-80-5972CZFOLyzfjhvsu (AVXRPR) LEYLA LAMBERT ([id number]) 1940 F Date Time Provider Department 06/09/22 WENCESLAO ROGERS AVXRDALLIN During your visit today, we recorded the following information about you: Wenceslao Rogers RN 06/09/2022 3:08 PM Signed Called pt to review Pre- procedure instructions for manoj removal on 06/13/22. No answer left VM with callback number. Allergies As of Date: 06/09/2022 Noted Allergy Reaction ACETAMINOPHEN-CODEINE 03/31/2011 16 - Unknown 8 - GI Upset COBALT 07/20/2014 14 - Other: See Comments Comments: welyassine GOLD AU 198 07/20/2014 5 - Intolerance Comments: [...] 1 tablet by mouth once daily. - pwlquqasnef-kcjzxoqim-ptthmblb (TRELEGY ELLIPTA) 100-62.5-25 mcg Inhale 1 Puff [...] enco*05/02/2022 Encounter Status:Closed by WENCESLAO ROGERS on 06/09/22[facility] Protime-INRon 59-82-7021RTD Coag (Bld) [Relative time]4.3 {INR}BON [employer] Phone: bon VirnetX Phone: XR Knee AP and Lateral and Merchantson 05-21-2022 Addendum by Provider, [facility] [place] on 05/21/2022 10:26 PM EDT * * [...] place with no change in the hardware. Relationship Mgr: [facility] Transcribe Date/Time: May 21 2022 1:27P Dictated by : MARGARETH RODRIUGEZ MD This examination was interpreted and the report reviewed and electronically signed by: MARGARETH RODRIGUEZ MD on May 21 2022 1:28PM [facility] MemorialRadiology Study observation (narrative)[facility]als Health SystemXR Knee AP and Lateral and MerchantsOrdered By: [facility] Provider on 83-21-7163Lpixbfrmt [facility] HospitalCB with Auto Differentialon 62-75-6641Jtchzfbr Eos #0.31B[facility] MERCY HEALTHAbsolute Immature GranulocyteBON SECOURS MERCY HEALTHAbsolute Lymph #0.80 LowBON SECOURS MERCY HEALTHAbsolute [place] #0.49B[facility] MERCY HEALTHBasophils (Bld) [#/Vol]0.08 10*3/uLBON SECOURS MERCY HEALTHBasophils/100 WBC (Bld)1 %0 - 2 %[facility] MERCY HEALTHEosinophils/100 WBC (Bld)5 %High1 - 4 %[facility] HOSPITALImmature granulocytes/100 WBC (Bld)0 %0[facility] Interpretation and review of laboratory resultsAbnormalBON [facility] Lymphocytes/100 WBC (Bld)12 %Low24 - 43 %[facility] HOSPITALH (RBC) [Entitic mass]28.9 pg25.2 - 33.5 pgBON PRE[facility] MIAM[facility] VALLEY HOSPITALHC (RBC) [Mass/Vol] 32.3 g/dL28.4 - 34.8 g/dLBON PREMIER HEALTH MIAMI VALLEY HOSPITALV (RBC) [Entitic vol]89.5 fL 82.6 - 102.9 fLSTAFFORD HOSPITALMonocytes/100 WBC (Bld)7 %3 - 12 %[facility] HOSPITALNRBC Automated0.00.0 per 100 WBCSTAFFORD HOSPITAL Platelet distribution width (Bld) [Ratio]19.0 %High11.8 - 14.4 %[facility]FFORD HOSPITALPlatelet mean volume (Bld) [Entitic vol]8.8 fL8.1 - 13.5 fLSTAFFORD HOSPITALPlatelets (Bld) [#/Vol]399 10*3/uLBON [facility]ILDREN'S HOSPITAL RBC (Bld) [#/Vol]3.53 10*6/uLLow3.95 - 5.11 m/uLSTAFFORD HOSPITAL Segmented neutrophils/100 WBC (Bld)75 %High36 - 65 %STAFFORD HOSPITALSegs Absolute5.05BON [facility] IN[facility]AN HOSPITALComprehensive metabolic 2000 panelon 00-68-2630Datkgchxxy [Mass/Vol]0.80 mg/dL1.5 MG/DL Vigil ClinicCreatinineon 09-74-3911Ayeiggajtu [Mass/Vol]0.8 mg/dL0.5 - 0.9 mg/dLBON AKRON CHILDREN'S HOSPITALGFR >6060 - PINF mL/minSTAFFORD HOSPITALGFR Non->6060 - PINF mL/minSTAFFORD HOSPITAL BON AKRON CHILDREN'S HOSPITALLaboratory - Chemistry and Chemistry - challengeon 60-94-0011RLY/1.73 sq M.predicted MDRD (S/P/Bld) [Vol rate/Area][facility] iMICROQLafayette Regional Health Center on above:Average GFR for 70 or more years old: 75 mL/min/1.73sq m Chronic Kidney Disease: <60 mL/min/1.73sq m Kidney failure: <15 mL/min/1.73sq m eGFR calculated using average adult body mass. Additional eGFR calculator available at: http://www.Formarum/multiple_crcl_2012.htm Stage 1: Some kidney damage normal GFR Stage 2: Mild kidney damage GFR 60-89 Stage 3: Moderate kidney damage GFR 30-59 Stage 4: Severe kidney damage GFR 15-29 Stage 5: Severe kidney damage GFR <15 ESRD - chronic treatment by dialysis or transplant Laboratory - Hematology and Cell countson 98-40-0536Ixyldlmhdg (Bld) [Volume fraction]31.6 %Low36.3 - 47.1 %[facility] iMICROQHemoglobin (Bld) [Mass/Vol]10.2 g/dLLow11.9 - 15.1 g/dLBON [facility]ALTHCARE CORPORATIONAlleyWatch [facility]INCINNAT[facility] NORTHWBC (Bld) [#/Vol] 6.8 10*3/uLBON iMICROQVANCOMYCIN LEVELon 29-66-0313Erlkiarcgx, ywauna24.510 - 20University Hospitals Health SystemVancomycin Level, Troughon 98-04-1482Lgarrlhtkh Tr12.5 ug/mL10 - 20 ug/mLB[facility] [employer] [facility] on above:Higher trough serum vancomycin concentrations of 15-20 ug/mL are recommended for complicated infections such as bacteremia, endocarditis, osteomyelitis, meningitis, and hospital acquired pneumonia. [facility] [employer] [facility] NORTHProtime-INRon 55-25-1567ZOT Coag (Bld) [Relative time] 2.1 {INR}[facility] iMICROQ Work Phone: bON iMICROQ Work Phone: Microorganism identified Cx Nom (Unsp spec)on 01-96-8914Hfocli identified Cx Nom (Unsp spec)No Fungus isolated after 28 days University Hospitals Health SystemFungus identified Nom (Unsp spec)No fungus seenUniversity Hospitals Health System Bacteria identified Anaer cx Nom (Unsp spec)on 38-70-9288Ssgtneoaibtzd identified Cx Nom (Unsp spec)Negative for anaerobes. No Cutibacterium acnes isolated.[facility] FLUID CULTURE AND GRAM STAINon 96-95-4635Kkjurwrm identified Cx Nom (Body fld)No growthUniversity Hospitals Health SystemBacteria identified Cx Nom (Body fld)on 62-70-9262Hjhvtqnrkrk observation Smear Nom (Unsp spec)No organisms seenCleLutheran Hospitalroscopic observation Smear Nom (Unsp spec)Few Polymorphonuclear leukocytesCleLutheran Hospitalroscopic observation Smear Nom (Unsp spec)Many Red Blood CellsTrinity Health System Twin City Medical Centerroscopic observation Smear Nom (Unsp spec)Gram stain from primary specimenLutheran Hospital Metabolic Panel w/ Reflex to MGon 73-94-3477Sdkrf gap [Moles/Vol]8 mmol/LLow9 - 17 mmol/L [facility] HEALTHCalcium [Mass/Vol]9.0 mg/dL8.6 - 10.4 mg/dLB[facility] MERCY HEALTHChloride [Moles/Vol]109 mmol/LHigh98 - 107 mmol/LBON SECOURS MERCY HEALTHCO2 [Moles/Vol]24 mmol/L20 - 31 mmol/LBON SECOURS MERCY HEALTHCreatinine [Mass/Vol]0.96 mg/dLHigh0.5 - 0.9 mg/dLBON SECOURS MERCY HEALTHGFR >6060 - PINF mL/minBON [facility]RS MERCY HEALTHGFR Non- Kurnhqsc70 mL/cgnJkc03 - PINF mL/minBON SECOURS MERCY HEALTHGlucose [Mass/Vol]85 mg/dL70 - 99 mg/dLBON SECOURS [facility]ENTERY HEALTHInterpretation and review of laboratory results AbnormalBON SECOURS MERCY HEALTHPotassium [Moles/Vol]4.4 mmol/L3.7 - 5.3 mmol/L [facility] HEALTHSodium [Moles/Vol]141 mmol/L135 - 144 mmol/LBON SECOURS MERCY HEALTHUrea nitrogen (BldV) [Mass/Vol]16 mg/dL8 - 23 mg/dLBON SECOURS MERCY HEALTHUrea nitrogen/Creatinine (Bld) [Mass ratio]179 - 20B[facility] MERCY HEALTHBON SECOURS MERCY HEALTHEKG Rhythm Stripon 48-07-1048OWCDVMERCY HEALTH KINGS MILLS HOSPITAL LABBON AKRON CHILDREN'S HOSPITALEchocardiogram complete 2D with doppler with coloron 73-51-2862QEQMPSHELTERING ARMS HOSPITAL Transthoracic Echocardiography Report (TTE) Patient Name PETRA Date of Study 04/03/2022 LEYLA James Date of 1940 Gender Female Age 81 year(s) Race Room Number 0328 Height: 63 inch, 160.02 cm Corporate ID [id number] Weight: 126 pounds, 57.2 kg # Patient Acct [id number] BSA: 1.59 m^2 BMI: 22.32 # kg/m^2 MR # [id number] Housekeeping/Laundry Supervisor Work,Julia Interpreting Physician Toni Moore Fellow Referring Nurse Analy Starks, JESSICA Practitioner Interpreting Referring Physician Fellow Type of Study TTE procedure:2D Echocardiogram, M-Mode, Doppler, Color Doppler. Procedure Date Date: 04/03/2022 Start: 12:05 PM Study Location: [facility] Indications:Chest pain. History / Tech. Comments: Dx: [...] ventricular septal hypertrophy. Clinical correlation required. Signature FINDINGS Left Atrium Left atrium is normal [...] VTI: 15.34 cm Lateral Wall E' velocity:0.05 m/sMHPN Toni Donovan MD - 04/03/2022 [facility] Transthoracic Echocardiography Report (TTE) Patient Name PETRA Date of Study 04/03/2022 LEYLA James Date of 1940 Gender Female Age 81 year(s) Race Room Number 0328 Height: 63 inch, 160.02 cm Corporate ID [id number] Weight: 126 pounds, 57.2 kg # Patient Acct [id number] BSA: 1.59 m^2 BMI: 22.32 # kg/m^2 MR # [id number] Housekeeping/Laundry Supervisor Work,Julia Interpreting Physician Toni Moore Fellow Referring Nurse Analy Starks CNP Practitioner Interpreting Referring Physician Fellow Type of Study TTE procedure:2D Echocardiogram, M-Mode, Doppler, Color Doppler. Procedure Date Date: 04/03/2022 Start: 12:05 PM Study Location: [facility] Indications:Chest pain. History / Tech. Comments: Dx: [...] ventricular septal hypertrophy. Clinical correlation required. Signature - - - - FINDINGS Left Atrium Left atrium is [...] 15.34 cm Lateral Wall E' velocity:0.05 m/s FLORY [employer] Phone: bON VirnetX Phone: laboratory - Chemistry and Chemistry - challengeon [id number]/1.73 sq M.predicted MDRD (S/P/Bld) [Vol rate/Area]Visible MeasuresLafayette Regional Health Center on above:Average GFR for 70 or more years old: 75 mL/min/1.73sq m Chronic Kidney Disease: <60 mL/min/1.73sq m Kidney failure: <15 mL/min/1.73sq m eGFR calculated using average adult body mass. Additional eGFR calculator available at: http://www.Formarum/multiple_crcl_2012.htm Stage 1: Some kidney damage normal GFR Stage 2: Mild kidney damage GFR 60-89 Stage 3: Moderate kidney damage GFR 30-59 Stage 4: Severe kidney damage GFR 15-29 Stage 5: Severe kidney damage GFR <15 ESRD - chronic treatment by dialysis or transplant Lipid panel - fastingon 24-96-3577Yqcizwdjape [Mass/Vol]185 mg/dLNINF - 200 mg/dLBON iMICROQComment on above: Cholesterol Guidelines: <200 Desirable 200-240 Borderline >240 Undesirable Cholesterol in HDL [Mass/Vol]47 mg/dL40 - PINF mg/dLBON iMICROQ Comment on above: HDL Guidelines: <40 Undesirable 40-59 Borderline >59 Desirable Cholesterol in LDL [Mass/Vol]118 mg/dL0 - 130 mg/dLBON iMICROQ Comment on above: LDL Guidelines: <100 Desirable 100-129 Near to/above Desirable 130-159 Borderline >159 Undesirable Direct (measured) LDL and calculated LDL are not interchangeable tests. Cholesterol.total/Cholesterol in HDL [Mass ratio]3.9 {ratio}NINF - 5BON iMICROQTriglyceride [Mass/Vol]101 mg/dLNINF - 150 mg/dLBON iMICROQComup health system on above: Triglyceride Guidelines: <150 Desirable 150-199 Borderline 200-499 High >499 Very high Based on AHA Guidelines for fasting triglyceride, May 2012. Visible MeasuresProtime-INRon 86-36-2766PWW Coag (Bld) [Relative time] 2.4 {INR}Visible MeasuresWright Memorial Hospitalment on above: Non-therapeutic Range: INR = 0.9-1.2 Therapeutic Range: Moderate Anticoagulant Intensity: INR = 2.0-3.0 High Anticoagulant Intensity: INR = 2.5-3.5 Interpretation and review of laboratory resultsAbLake Taylor Transitional Care Hospital PT Coag (PPP) [Time]26.1 sHighBON [facility] Troponinon 54-36-7880Wsxhdntqeurbde and review of laboratory resultsAbnormVirginia Hospital CenterTroponin, High Eserxqejiid83 ng/LHigh0 - 14 ng/LBON [facility] CHILDREN'S HOSPITALComment on above: High Sensitivity Troponin values cannot be compared with other Troponin methodologies. Patients with high levels of Biotin oral intake (i.e >5mg/day) may have falsely decreased Troponin levels. Samples collected within 8 hours of biotin intake may require additional information for diagnosis. [facility]OSPITALBrain natriuretic peptideon 57-90-5500Rujgmqmkewz peptide B (Bld) [Mass/Vol]1138 pg/mLHighNINF - 300 pg/mLSTAFFORD HOSPITAL Comment on above: An age-independent cutoff point of 300 pg/ml has a 98% negative predictive value excluding acute heart failure. CBCon 89-39-7161Ecnaycroeh (Bld) [Volume fraction]32.8 %Low36.3 - 47.1 %[facility] HOSPITALHemoglobin (Bld) [Mass/Vol]10.3 g/dLLow11.9 - 15.1 g/dLBON AKRON CHILDREN'S HOSPITALInterpretation and review of laboratory resultsAbnoCommunity Health SystemsH (RBC) [Entitic mass]27.5 pg25.2 - 33.[address] ALBANS HOSPITALHC (RBC) [Mass/Vol]31.4 g/dL28.4 - 34.8 g/dLBON PRE[facility] HOSPITALV (RBC) [Entitic vol]87.7 fL82.6 - 102.9 fLSTAFFORD HOSPITALNRBC Automated0.00.0 per 100 WBCSTAFFORD HOSPITALPlatelet distribution width (Bld) [Ratio]15.7 %High11.8 - 14.4 %[facility] HOSPITALPlatelet mean volume (Bld) [Entitic vol]9.7 fL8.1 - 13.5 fLSENTARA RMH MEDICAL CENTER HEALTHPlatelets (Bld) [#/Vol]295 10*3/uLBON [facility] HEALTHRBC (Bld) [#/Vol]3.74 10*6/uLLow3.95 - 5.11 m/uLBON [facility] HEALTHWBC (Bld) [#/Vol]6.8 10*3/uLBON [facility] HEALTHBON [facility] HEALTHComprehensive Metabolic Panel w/ Reflex to MGon 60-17-0226Uwvuzck [Mass/Vol]3.8 g/dL3.5 - 5.2 g/dLBON SECBAT[facility] HEALTH Albumin/Globulin [Mass ratio]1.4 {ratio}1 - 2.5BON [facility] HEALTHALP (Bld) [Catalytic activity/Vol]83 U/L35 - 104 U/LBON [facility] HEALTHALT [Catalytic activity/Vol]15 U/L5 - 33 U/LBON [facility] HEALTHAnion gap [Moles/Vol]11 mmol/L9 - 17 mmol/LBON SECBATON ROUGE GENER[facility]ENTER HEALTHAST [Catalytic activity/Vol]22 U/L NINF - 32 U/LBON [facility] HEALTHBilirubin [Mass/Vol]0.25 mg/dLLow0.3 - 1.2 mg/dLBON SECCONFL[facility]ALTHY HEALTHCalcium [Mass/Vol]9.2 mg/dL8.6 - 10.4 mg/dLBON SECCONFLUENCE HEALTHY HEALTHChloride [Moles/Vol]106 mmol/L98 - 107 mmol/LBON [facility] HEALTHCO2 [Moles/Vol]22 mmol/L20 - 31 mmol/LBON SECBATON [facility] HEALTH Creatinine [Mass/Vol]1.17 mg/dLHigh0.5 - 0.9 mg/dLBON [facility] HEALTHFree PSA/Total PSA [Mass fraction]6.5 g/dL6.4 - 8.3 g/dLBON [facility] HEALTHGFR Lvpvlfyy55 mL/mlnHfq66 - PINF mL/minBON [facility] HEALTHGFR Non- Bogmqczs70 mL/eizVum85 - PINF mL/minBON [facility] HEALTHGlucose [Mass/Vol]97 mg/dL70 - 99 mg/dLBON [facility] HEALTHPotassium [Moles/Vol]4.3 mmol/L3.7 - 5.3 mmol/LBON [facility] HEALTHSodium [Moles/Vol]139 mmol/L135 - 144 mmol/LBON [facility]RON CHILDREN'S HOSPITALUrea nitrogen (BldV) [Mass/Vol]21 mg/dL8 - 23 mg/dLBON AKRON CHILDREN'S HOSPITALUrea nitrogen/Creatinine (Bld) [Mass ratio]189 - 20 ADDISON GILBERT HOSPITALUbi Video TRI[facility] GOOD SAMARITAN HOSPITALD-dimer, quantitativeon 68-40-8329E-Dimer, Quant1.53High [facility]OSPITALComment on above: When combined with a low [...] distal DVT. Interpretation and review of laboratory resultsAbnormalSENTARA RMH MEDICAL CENTER [employer] [facility] GILBERT HOSPITALAbound LogicCLEVELAND CLINIC CHILDREN'S HOSPITAL FOR REHABILITATIONEKG 12 leadon 01-37-6043Whygfx Mpeu06RJJFVW SECUbi Video [facility] CENTERProfitect Work Phone: p Cashmere-11degreesADDISON GILBERT HOSPITALUbi Video [facility] CENTERProfitect Work Phone: p-R Ynijvwco821 [facility] iMICROQ Work Phone: Q-T Uodllndo054 msBON iMICROQ Work Phone: QRS Rhtxlybv99 [facility] Medical CenterZeus Work Phone: QTc Calculation (Bazett)446 [facility] [employer]netX Phone: r Vnwe2uimtbhoMEL [employer] Phone: T Acfj6wwljmjuZFZ [employer] Phone: Ventricular Yxjs13BJCNMI SECNimbus LLC Phone: [phone]-qjmcf rhythm with prolonged AV conduction Abnormal ECG When compared with ECG of 17-APR-2020 11:57, No significant change was found Confirmed by KARSTEN DYER ([id number]) on 04/02/2022 5:40:10 [facility] Karsten Dyer MD - 04/02/2022 Atrial-paced rhythm with prolonged AV conduction Abnormal ECG When compared with ECG of 17-APR-2020 11:57, No significant change was found Confirmed by KARSTEN DYER ([id number]) on 04/02/2022 5:40:10 PM [facility] iMICROQ Work Phone: bMARIO iMICROQ Work Phone: eKG Rhythm Stripon 58-01-8224QHFIBOHIO VALLEY SURGICAL HOSPITALUbi Video TRI[facility] GOOD SAMARITAN HOSPITALLaboratory - Chemistry and Chemistry - challengeon 39-44-9480XEY/1.73 sq M.predicted MDRD (S/P/Bld) [Vol rate/Area][facility] iMICROQComment on above:Average GFR for 70 or more years old: 75 mL/min/1.73sq m Chronic Kidney Disease: <60 mL/min/1.73sq m Kidney failure: <15 mL/min/1.73sq m eGFR calculated using average adult body mass. Additional eGFR calculator available at: http://www.Sr.Pago.InSightec/multiple_crcl_2012.htm Stage 1: Some kidney damage normal GFR Stage 2: Mild kidney damage GFR 60-89 Stage 3: Moderate kidney damage GFR 30-59 Stage 4: Severe kidney damage GFR 15-29 Stage 5: Severe kidney damage GFR <15 ESRD - chronic treatment by dialysis or transplant No Panel Informationon 51-34-3793Ujnxhakuijjdas and review of laboratory results AbnormalBANNER DEL E WEBB [facility]ICAL [facility]ENTER KOFFIZeusFLORY RAINAlleyWatch [facility] NORTHProtime-INRon 04-02-2022 INR Coag (Bld) [Relative time]3 {INR}FLORY iMICROQ Work Phone: bMARIO RAINZeus Work Phone: Troponinon 60-03-4923Omzoxvybyjtaaf and review of laboratory resultsAbnormalADDISON GILBERT HOSPITALZeusTroponin, High Lymtpztjcnf46 ng/LHigh0 - 14 ng/LB iMICROQWright Memorial Hospitalment on above: High Sensitivity Troponin values cannot be compared with other Troponin methodologies. Patients with high levels of Biotin oral intake (i.e >5mg/day) may have falsely decreased Troponin levels. Samples collected within 8 hours of biotin intake may require additional information for diagnosis. [facility] iMICROQInterpretation and review of laboratory resultsAbnormal FLORY [facility]ARE CORPORATIONZeusTroponin, High Unicheukyui49 ng/LHigh0 - 14 ng/LBON iMICROQComment on above: High Sensitivity Troponin values cannot be compared with other Troponin methodologies. Patients with high levels of Biotin oral intake (i.e >5mg/day) may have falsely decreased Troponin levels. Samples collected within 8 hours of biotin intake may require additional information for diagnosis. FLORY iMICROQXR CHEST (2 VW)on 39-86-9155Uc acute abnormality detected. MHPN RIS CONSOLIDATEDEXAMINATION: TWO XRAY VIEWS OF THE CHEST 04/02/2022 [...] Bones appear demineralized. No acute bony abnormality. MHPN RIS CONSOLIDATEDImwalle, Abel K, MD - 04/02/2022 EXAMINATION: TWO XRAY VIEWS OF [...] bony abnormality. IMPRESSION: No acute abnormality detected. Petenko Phone: radiology Study observation (narrative)Petenko Phone: XR CHEST (2 VW)Ordered By: Abel Miller on 36-35-0833XES iMICROQ Work Phone: SYNOVIAL FL,CRYSTAL ID/STAFF REVon 13-54-8193Koazfov Prelim, SFPRELIMINARY REPORT No diagnostic crystals seen. SEE FINAL SF PATH REVIEWCleToledo HospitalCrystal ReviewReviewed by Leigh Ann Atkins M.D., Ph.D [facility]als Health SystemCrystals LM Nom (Syn fld)None seenNone seenUniversity Hospitals Health System Specimen source Nom (Unsp spec)KNEE RIGHT SYNOVIAL FLUIDPaulding County HospitalYNOVIAL FLUID MANUAL DIFFon 63-75-4189Eoba Total Synovial Zixku134 cells counted [facility] Health SystemLymph%, ZD4Vsnguakir ClinicNeut%, LZ20Xegi9 - <25CleBluffton HospitalYNOVIAL FLUID, ROUTINEon 37-08-7849Ezsaezu (Unsp spec)CloudyAbnormalClear [facility] Center ClinicClarity (Unsp spec)ClearClearCleveland ClinicColor (Syn fld) BloodyAbnormalYellowSalisbury Center ClinicColor (Syn fld)AmberAbnormalYellowKing's Daughters Medical Center Ohio Manual cnt (Syn fld) [#/Vol]514649 /uLHigh<2,000 /uLUniversity Hospitals Health System Specimen source Nom (Unsp spec)KNEE RIGHT SYNOVIAL FLUIDUniversity Hospitals Health SystemWBC Manual cnt (Syn fld) [#/Vol]5859 /uLHigh0 - 200 /uLCleToledo HospitalCRP SerPl-mCncon 50-73-1607URV [Mass/Vol]1.4 mg/dLHigh<0.9Avon HospitalComment on above:Order Comment: Specimen Type: BLOOD SPECIMEN Ordering Facility: [facility] Address: [address] [place], [place] [address]Performed By: #### 1988-5 #### [facility] CLIA [id number] [facility] [address] [place] AMERICAESR Westergren method (Bld) [Velocity]on 59-57-1281VKA (Bld) [Velocity]45 mm/hHigh0-20Avon HospitalComment on above:Order Comment: Specimen Type: BLOOD SPECIMEN Ordering Facility: [facility] Address: [address] [place], [place] [address]Performed By: #### 4537-7 #### [facility] CLIA [id number] [address] [place], [place] [address]K [id number] [place] [address] [place] AMERICAProtime-INRon 15-02-2949TPB Coag (Bld) [Relative time]1.9 {INR}BON iMICROQ Work Phone: bon [employer] Phone: [phone]-DDRpd 69-19-2981KPO Coag (Bld) [Relative time] 4.1 {INR}BON VirnetX Phone: bon VirnetX Phone: Follow Up (General Surgery)on 72-22-8527Qytjvw Up (General Surgery)Diagnoses/Problems Dysphagia (787.20) (R13.10) LPRD (laryngopharyngeal reflux disease) [...] on her modified barium swallow. EMOT shows ahigh pressure area between the les and hiatus. The esophagram is normal. EGD shows a hiatal hernia.She also has an infection in her knee that is being treated for abs. I suspect the biggest issue ispoor clearance from the hiatal hernia and we [...] first. She is seeing the orthopod tomorrow. Sheis having trouble eating. hopefully we can proceed in February. Seeing her predictive maintenance technician on February 24. Chief Complaint An interactive audio and video telecommunication system which permits real time communications between the patient (at the originating site) and provider (at the distant site) was utilized to [facility]aint [facility] service. 81 yr old female calls and leaves tearful VM that is unable to eat, swallow and needs advice/assistance. Dr. Julio agreeable to seeing 01/22/22 for follow up. Last visit 06/2022, with planned HHR surgery canceled 12/2021 related to blood thinners / NM with stent placement. Adult Risk ScreeningAdult Risk Screening_: There are no spiritual/cultural practices/values/needsthat are important to know Initial Fall Risk [...] last and you didn't have money to getmore: No History of Present Illness stent placed and predictive maintenance technician didn't want to take her off Plavix [...] back back found spine 02/06/22 first appt. predictive maintenance technician said she had stent and can have surgery after the 2 (more content not included)...Normal [facility] TouchworksUS EXT NON VASC LIMITED LTon 20-62-5056KK EXT NON VASC LIMITED LT EXAMINATION: US [...] Electronically authenticated by: RENAN DAVIS Date: 2022-01-14 16:12Ashtabula County Medical CenterProtime-INRon 85-24-9965NTV Coag (Bld) [Relative time]2.3 {INR} [employer] Work Phone: Kindred HealthcareHopsFromVirginia.com Work Phone: creatinine and Glomerular filtration rate.predicted panel (S/P/Bld)Ordered By: Isauro Archuleta on 25-95-0259Dbpojsvoiz [Mass/Vol]1.05 mg/dL0.44-1.03Good Samaritan HospitalEstimated glomerular filtration rate (GFR) non- AmericanOrdered By: Isauro Archuleta on 16-74-4354ZPU/1.73 sq M.predicted among non-blacks MDRD (S/P/Bld) [Vol rate/Area]50 mL/MinGood Samaritan HospitalNo Panel InformationOrdered By: Isauro Archuleta on 12-31-2021 Estimated GFR ()> 60 mL/MinGood Samaritan Hospital Comment on above:GFR estimated reference range: According to KDOQI guidelines, <60 ml/min/1.73m2 is sufficient todiagnose a patient with chronic kidney disease.Pharmacy Creatinine Clearance (ChemN/[facility] Serum or plasma urea nitrogen measurement (mass/volume)Ordered By: Isauro Archuleta on 34-90-9336Fgmg nitrogen [Mass/Vol]31 mg/dL9-23[facility] 60-94-9774TRQHDR HEALTHHNO ID: [id number] Author: RT Caitie(R) Service: ? Author Type: Technologist Type: Allied [...] BY: RT Caitie(R) December 30, 2021 9:55 AMNUP [facility] LUMBAR SPINE WO IVCONon 45-33-5622MU LUMBAR SPINE WO IVCON* * *Final Report* * * DATE OF EXAM: Dec 30 2021 10:02AM [facility] 0508 - CT LUMBAR SPINE WO [...] cord caliber and cauda equina. No additional fracture/dislocation/subluxation. Incidental note made of uncomplicated IVC filter [...] is taken as L5-S1. Structural anomalies: None. Relationship Mgr: RIKA Transcribe Date/Time: Dec 30 2021 11:38A Dictated by : DAREK PARSON MD This examination was interpreted and the report reviewed and electronically signed by: DAREK PARSON MD on Dec 30 2021 11:45AM EST [id number] Community Hospital Informationon 12-30-2021 [facility] Health SystemXR FOREARM 2V AP/LAT LTon 32-73-9276DG FOREARM 2V AP/LAT LT* * *Final Report* * * DATE OF [...] fracture of the left forearm or wrist. Relationship Mgr: RIKA Transcribe Date/Time: Dec 30 2021 10:14A Dictated by : ALEKSANDR MCRAE DO This examination was interpreted and the report reviewed and electronically signed by: OK SIMS MD on Dec 31 2021 1:16PM EST [id number] Lady of Bellefonte HospitalXR LUMBAR 3V AP/LAT/L5-S1on 12-30-2021 XR LUMBAR 3V AP/LAT/L5-S1* * *Final Report* * * DATE OF [...] Mild scoliosis and degenerative changes, as described. Relationship Mgr: RIKA Transcribe Date/Time: Dec 30 2021 10:16A Dictated by : ALEKSANDR MCRAE DO This examination was interpreted and the report reviewed and electronically signed by: OK SIMS MD on Dec 31 2021 1:14PM EST [id number] Regional Medical CenterXR WRIST 3V PA/LAT/OBL LTon 12-30-2021 XR WRIST 3V PA/LAT/OBL LT* * *Final Report* * * DATE OF [...] fracture of the left forearm or wrist. Relationship Mgr: RIKA Transcribe Date/Time: Dec 30 2021 10:14A Dictated by : ALEKSANDR MCRAE DO This examination was interpreted and the report reviewed and electronically signed by: OK SIMS MD on Dec 31 2021 1:16PM EST [id number] Regional Medical CenterComplete Blood Count + Differentialon 10-51-9603Awtatyeta/100 WBC (Bld)0.9 %0.0 - 2.8QR-Hfsskjccvnoely-Frk for Perioperative Med Work Phone: Erythrocyte distribution width (RBC) [Ratio]15.7 % above high thresholdSee HkpbwLH-Ldmtsirvbfcsls-Ygc for Perioperative Med Work Phone: Comment on above:Reference Range: 11.5 - 14.5 Hematocrit (Bld) [Volume fraction]35.9 %below low thresholdSee Below LX-Baocmxtnyfycmb-Jze for Perioperative Med Work Phone: [phone] on above:Reference Range: 36.0 - 46.0 Hemoglobin (Bld) [Mass/Vol]11.3 g/dLbelow low thresholdSee Below OC-Xwmkhoocqsstww-Zcv for Perioperative Med Work Phone: [phone] on above:Reference Range: 12.0 - 16.0 Lymphocytes/100 WBC (Bld)15.6 %See IlyarCJ-Ludorxtqmjldgk-Yfe for Perioperative Med Work Phone: [phone] on above:Reference Range: 13.0 - 44.0MCHC (RBC) [Mass/Vol]31.5 g/dLbelow low thresholdSee PefkkCX-Zqtldjyhnzykoe-Tem for Perioperative Med Work Phone: [phone] on above:Reference Range: 32.0 - 36.0MCV (RBC) [Entitic vol]91 fL80 - 497WB-Yhzvhvnyjxvlcs-Rzw for Perioperative Med Work Phone: [phone]/100 WBC (Bld)6.8 %2.0 - 10.0 WT-Uhipjtpezfsrpk-Vgy for Perioperative Med Work Phone: [phone]/100 WBC (Bld)75.2 %See Below CU-Qekujofvzyrnjz-Gyv for Perioperative Med Work Phone: [phone] on above:Reference Range: 40.0 - 80.0Platelets (Bld) [#/Vol]394 10*3/uL150 - 322OZ-Tckuqjqiuvtkwe-Iby for Perioperative Med Work Phone: [phone] (Bld) [#/Vol]3.93 {x10E12/L}below low thresholdSee IehmrCH-Uzbdwahicwlvbv-Qdn for Perioperative Med Work Phone: [phone] on above:Reference Range: 4.00 - 5.20WBC (Bld) [#/Vol]6.5 10*3/uL4.4 - 11.9PW-Batfwkcolhheaj-Nwj for Perioperative Med Work Phone: [phone] Blood Count + Differential0.06 {x10E9/L}See VuuvaPU-Tgigcpbjugogph-Eal for Perioperative Med Work Phone: [phone] on above:Reference Range: 0.00 - 0.10Reference Range: 0.00 - 0.40Complete Blood Count + Differential0.44 {x10E9/L}See Below HL-Jckviqanhfjtdx-Mzf for Perioperative Med Work Phone: [phone] on above:Reference Range: 0.05 - 0.80Complete Blood Count + Differential1.01 {x10E9/L}See QkbljFT-Htdxekhoyfvtxt-Rvj for Perioperative Med Work Phone: [phone] on above:Reference Range: 0.80 - 3.00Complete Blood Count + Differential4.87 {x10E9/L}See ZvjpkVO-Ptiaqjwqgbjppp-Oym for Perioperative Med Work Phone: [phone] on above:Reference Range: 1.60 - 5.50Complete Blood Count + Differential0.9 %0.0 - 6.8YW-Ucjlojuomrdebf-Eaw for Perioperative Med Work Phone: [phone] Blood Count + Differential0.6 %0.0 - 0.9 QV-Nzslpatpjkkvaa-Fpl for Perioperative Med Work Phone: [phone] on above:Immature Granulocyte Count (IG) includes promyelocytes, myelocytes and metamyelocytes but does not include bands. Percent differential counts (%) should be interpreted in the context of the absolute cell counts (cells/L).Complete Blood Count + Differential0.0 {/100_WBC}0.0-0.6MR-Oeslfwsxmgigbz-Ifp for Perioperative Med Work Phone: [phone] - Blood bankon 45-90-5113QHG group Nom (Bld)XJO-Mjxpogjyifqsku-Fvl for Perioperative Med Work Phone: [phone] group antibody screen QlNegative PH-Ukgbqpqdieybgk-Mpp for Perioperative Med Work Phone: [phone] immune globulin screen (Bld) [Interp]Positive ZR-Tgsizwfekcdsuh-Wjv for Perioperative Med Work Phone: [phone] - Chemistry and Chemistry - challengeon 58-57-1357Magkwpe BCP dye [Mass/Vol]3.5 g/dL3.4 - 5.3CJ-Wxvgvfjxjosrdt-Hgd for Perioperative Med Work Phone: ALP [Catalytic activity/Vol]81 U/L33 - 136 MM-Nlogltmltjsdrd-Pze for Perioperative Med Work Phone: [phone] With P-5'-P [Catalytic activity/Vol]9 U/L7 - 45 KN-Nhiouojrckrwuw-Uvv for Perioperative Med Work Phone: [phone] on above:Patients treated with Sulfasalazine may generate falsely decreased results for ALT.Anion gap [Moles/Vol]14 mmol/L10 - 06HK-Xbpyxavrjmqyzg-Crf for Perioperative Med Work Phone: [phone] With P-5'-P [Catalytic activity/Vol]21 U/L9 - 39 TO-Ykpinvobdtzxye-Jlf for Perioperative Med Work Phone: [phone] [Mass/Vol]0.4 mg/dL0.0 - 1.2 LN-Hifvdelylxsofb-Bgq for Perioperative Med Work Phone: [phone] [Mass/Vol]9.4 mg/dL8.6 - 10.6 ZX-Wyzvnyfdslyacr-Bja for Perioperative Med Work Phone: [phone] [Moles/Vol]106 mmol/L98 - 107 TU-Esliheujwxgrwr-Wzt for Perioperative Med Work Phone: [phone] [Moles/Vol]24 mmol/L21 - 83UE-Jennqqliykatin-Kjn for Perioperative Med Work Phone: [phone] [Mass/Vol]1.00 mg/dLSee Below LB-Gkdybmvladazgz-Jhy for Perioperative Med Work Phone: [phone] on above:Reference Range: 0.50 - 1.05Glucose [Mass/Vol]80 mg/dL74 - 17OK-Drunocmkwjksqq-Dpp for Perioperative Med Work Phone: [phone] [Moles/Vol]3.9 mmol/L3.5 - 5.3 TZ-Lvmnsjqqolowcr-Xrl for Perioperative Med Work Phone: Protein [Mass/Vol]6.2 g/dLbelow low threshold6.4 - 8.2 ZM-Kwsqadbvdonoho-Vcn for Perioperative Med Work Phone: Sodium [Moles/Vol]140 mmol/L136 - 145 XB-Lhkqizgyobhijz-Rwt for Perioperative Med Work Phone: Urea nitrogen [Mass/Vol]24 mg/dLabove high threshold6 - 69SL-Hebhvdhmiwywkt-Xlf for Perioperative Med Work Phone: No Panel Informationon {mL/min/1.73m2} Abnormal>73EP-Hnfikkvfeufsfk-Hhe for Perioperative Med Work Phone: Comment on above:CALCULATIONS OF ESTIMATED GFR ARE PERFORMED USING THE 2020 CKD-EPI STUDY REFIT EQUATION WITHOUT THERACE VARIABLE FOR THE IDMS-TRACEABLE CREATININE METHODS.https://jasn.asnjournals.org/content/early/ASN.6972430780F- REACTIVE PROTEIN (CRP)on 49-50-9594LBS [Mass/Vol]0.6 mg/dL<0.9 mg/dLSelect Medical Specialty Hospital - Southeast OhioR Westergren method (Bld) [Velocity]on 15-87-9078ATL (Bld) [Velocity]35 mm/hHigh0 - 20 mm/hrUniversity Hospitals Health SystemXR Knee AP and Lateral and Merchantson 41-36-9363GVDRGKNKBR: Right knee arthroplasty without interval change or new complication. Relationship Mgr: RIKA Transcribe Date/Time: Nov 27 2021 2:31P Dictated by : RADHA ENAMORADO MD This examination was interpreted and the report reviewed and electronically signed by: RADHA ENAMORADO MD on Nov 27 2021 2:33PM EST ZZZ_DO_NOT_USE_DIVISION OF RADIOLOGY* * *Final Report* * * DATE OF [...] notable for mild degenerative changes and chondrocalcinosis. ZZZ_DO_NOT_USE_DIVISION OF RADIOLOGYProvider, [facility] [place] - 11/27/2021 * * *Final Report* * [...] arthroplasty without interval change or new complication. Relationship Mgr: PSCB Transcribe Date/Time: Nov 27 2021 2:31P Dictated by : RADHA ENAMORADO MD This examination was interpreted and the report reviewed and electronically signed by: RADHA ENAMORADO MD on Nov 27 2021 2:33PM EST [facility] Hospitals Health SystemRadiology Study observation (narrative)[facility] SystemXR Knee AP and Lateral and MerchantsOrdered By: Ccf Provider on 67-27-9663Lktleiivf ClinicProtime-INRon 44-14-7603RFM Coag (Bld) [Relative time]2.7 {INR}[employer] Work Phone: [facility] Outcome Referrals Work Phone: cBC W Auto Differential panel (Bld)on 08-12-2021 Basophils (Bld) [#/Vol]0.05 10*3/uLNormal<0.11Seagraves HospitalComment on above: Order Comment: Specimen Type: BLOOD SPECIMENPerformed By: #### [id number], 7 #### [facility] CLIA [id number] [address] [place] [address] [place] OF AMERICABasophils/100 WBC (Bld)0.8 %Normal [facility] Specialty HospitalComment on above:Order Comment: Specimen Type: BLOOD SPECIMEN Performed By: #### [id number], 4537-02 #### [facility] CLIA [id number] [address] [place] [address] [place] AMERICADifferential cell count method Nom (Bld)AutoNormalDignity Health Arizona Specialty HospitalComment on above:Order Comment: Specimen Type: BLOOD SPECIMENPerformed By: #### 82763-4, 4537-02 #### [facility] CLIA [id number] [address] [place] [address] [place] AMERICAEosinophils (Bld) [#/Vol]0.12 10*3/uL Normal<0.46[facility] HospitalComup health system on above:Order Comment: Specimen Type: BLOOD SPECIMENPerformed By: #### 60934-5, 4537-02 #### [facility] CLIA [id number] [address] [place] [address] [place] AMERICAEosinophils/100 WBC (Bld)2.0 %Normal [facility] HospitalComup health system on above:Order Comment: Specimen Type: BLOOD SPECIMEN Performed By: #### 68285-0, 4537-02 #### [facility] CLIA [id number] [address] [place] [address] [place] AMERICAErythrocyte distribution width (RBC) [Ratio]15.4 %High11.5-15.0[facility]ty HospitalComment on above:Order Comment: Specimen Type: BLOOD SPECIMENPerformed By: #### 78241-5, 4537-02 #### [facility] CLIA [id number] [address] [place] [address] [place] AMERICAHematocrit (Bld) [Volume fraction]34.9 %Low36.0-46.0Seagraves HospitalComment on above:Order Comment: Specimen Type: BLOOD SPECIMENPerformed By: #### 15976-4, 4537-02 #### [facility] CLIA [id number] [address] [place] [address] [place] AMERICAHemoglobin (Bld) [Mass/Vol]10.9 g/dLLow 11.5-15.5Seagraves HospitalComment on above:Order Comment: Specimen Type: BLOOD SPECIMENPerformed By: #### 50607-2, 4537-02 #### [facility] CLIA [id number] [address] [place] [address] [place] AMERICAIMMATURE GRAN %0.3 %NormalSeagraves HospitalComment on above:Order Comment: Specimen Type: BLOOD SPECIMENPerformed By: #### 03339-7, 4537-02 #### [facility] CLIA [id number] [address] [place] [address] [place] AMERICAIMMATURE GRAN ABS<0.03Normal<0.10Seagraves HospitalComment on above:Order Comment: Specimen Type: BLOOD SPECIMENPerformed By: #### 43999-8, 4537-02 #### [facility] CLIA [id number] [address] [place] [address] [place] AMERICALymphocytes (Bld) [#/Vol]1.32 10*3/uL Normal1.00-4.00Seagraves HospitalComment on above:Order Comment: Specimen Type: BLOOD SPECIMENPerformed By: #### 88314-9, 4537-02 #### [facility] CLIA [id number] [address] [place] [address] [place] AMERICALymphocytes/100 WBC (Bld)22.0 %Normal [facility]agraves HospitalComment on above:Order Comment: Specimen Type: BLOOD SPECIMEN Performed By: #### 36111-7, 4537-02 #### [facility] CLIA [id number] [address] (RBC) [Entitic mass]28.7 pgNormal 26.0-34.0Seagraves HospitalComment on above:Order Comment: Specimen Type: BLOOD SPECIMENPerformed By: #### 49140-2, 7 #### [facility] CLIA [id number] [address] (RBC) [Mass/Vol]31.2 g/dLNormal 30.5-36.0Seagraves HospitalComment on above:Order Comment: Specimen Type: BLOOD SPECIMENPerformed By: #### 68599-2, 4537-02 #### [facility] CLIA [id number] [address] (RBC) [Entitic vol]91.8 fLNormal 80.0-100.0Seagraves HospitalComment on above:Order Comment: Specimen Type: BLOOD SPECIMENPerformed By: #### 83296-7, 4537-02 #### [facility] CLIA [id number] [address] [place] [address] [place] AMERICAMonocytes (Bld) [#/Vol]0.53 10*3/uL Normal<0.87Seagraves HospitalComment on above:Order Comment: Specimen Type: BLOOD SPECIMENPerformed By: #### 92763-3, 4537-02 #### [facility] CLIA [id number] [address] [place] [address] [place] AMERICAMonocytes/100 WBC (Bld)8.8 %Normal [facility] HospitalComment on above:Order Comment: Specimen Type: BLOOD SPECIMEN Performed By: #### 84339-1, 7 #### [facility] CLIA [id number] [address] [place] [address] [place] AMERICANeutrophils (Bld) [#/Vol]3.97 10*3/uL Normal1.45-7.50Seagraves HospitalComment on above:Order Comment: Specimen Type: BLOOD SPECIMENPerformed By: #### 40186-3, 7 #### [facility] CLIA [id number] [address] [place] [address] [place] AMERICANeutrophils/100 WBC (Bld)66.1 %Normal [facility] HospitalComment on above:Order Comment: Specimen Type: BLOOD SPECIMEN Performed By: #### 88841-2, 7 #### [facility] CLIA [id number] [address] [place] [address] [place] AMERICANucleated RBC (Bld) [#/Vol]10*3/uL Normal<0.01[facility] HospitalComment on above:Order Comment: Specimen Type: BLOOD SPECIMENPerformed By: #### 45989-9, 4537-02 #### [facility] CLIA [id number] [address] [place] [address] [place] AMERICANucleated RBC/100 WBC (Bld) [Ratio]0.0 /100 WBCNormal0.0Seagraves HospitalComment on above:Order Comment: Specimen Type: BLOOD SPECIMENPerformed By: #### 11622-2, 7 #### [facility] CLIA [id number] [address] [place] [address] [place] AMERICAPlatelet mean volume (Bld) [Entitic vol]9.7 fLNormal9.0-12.7Seagraves HospitalComment on above:Order Comment: Specimen Type: BLOOD SPECIMENPerformed By: #### 06890-4, 7 #### [facility] CLIA [id number] [address] [place] [address] [place] AMERICAPlatelets (Bld) [#/Vol]309 10*3/uL Mgkuyp577-785Eofriu HospitalComment on above:Order Comment: Specimen Type: BLOOD SPECIMENPerformed By: #### 60916-9, 7 #### [facility] CLIA [id number] [address] [place] [address] [place] AMERICARBC (Bld) [#/Vol]3.80 10*6/uLLow 3.90-5.20[facility]agraves HospitalComment on above:Order Comment: Specimen Type: BLOOD SPECIMENPerformed By: #### 44925-2, 4537-7 #### [facility] CLIA [id number] [address] [place] [address] [place] AMERICAWBC (Bld) [#/Vol]6.01 10*3/uLNormal 3.70-11.00Seagraves HospitalComment on above:Order Comment: Specimen Type: BLOOD SPECIMENPerformed By: #### 68799-1, 4537-7 #### [facility] CLIA [id number] [address] [place] [address] [place] AMERICACRP SerPl-ncon 63-37-4279ZDG [Mass/Vol]0.8 mg/dLHigh<0.5Seagraves HospitalComment on above:Order Comment: Specimen Type: BLOOD SPECIMENPerformed By: #### 1987-12, #### [facility] CLIA [id number] [address] [place] [address] [place] AMERICAComprehensive metabolic 2000 panelon 31-52-8803Ondscaa [Mass/Vol]3.4 g/dLLow3.9-4.9Seagraves HospitalComment on above: Order Comment: Specimen Type: BLOOD SPECIMENPerformed By: #### 1987-12, #### [facility] CLIA [id number] [address] [place] [address] [place] AMERICAALP [Catalytic activity/Vol]77 U/L Anfeaf18-652Ywckar HospitalComment on above:Order Comment: Specimen Type: BLOOD SPECIMENPerformed By: #### 1987-12, #### [facility] CLIA [id number] [address] [place] [address] [place] AMERICAALT [Catalytic activity/Vol]9 U/LNormal 7-38Seagraves HospitalComment on above:Order Comment: Specimen Type: BLOOD SPECIMEN Performed By: #### 1987-12, #### [facility] CLIA [id number] [address] [place] [address] [place] AMERICAAnion gap [Moles/Vol]8 mmol/LLow9-18 [facility] HospitalComment on above:Order Comment: Specimen Type: BLOOD SPECIMEN Performed By: #### 1987-12, #### [facility] CLIA [id number] [address] [place] [address] [place] AMERICAAST [Catalytic activity/Vol]19 U/L Oxksaw25-65Rcdihf HospitalComment on above:Order Comment: Specimen Type: BLOOD SPECIMENPerformed By: #### 1987-12, #### [facility] CLIA [id number] [address] [place] [address] [place] AMERICABilirubin [Mass/Vol]0.3 mg/dLNormal 0.2-1.3Seagraves HospitalComment on above:Order Comment: Specimen Type: BLOOD SPECIMENPerformed By: #### 1987-12, #### [facility] CLIA [id number] [address] [place] [address] [place] AMERICACalcium [Mass/Vol]9.2 mg/dLNormal 8.5-10.2Seagraves HospitalComment on above:Order Comment: Specimen Type: BLOOD SPECIMENPerformed By: #### 1987-12, #### [facility] CLIA [id number] [address] [place] [address] [place] AMERICAChloride [Moles/Vol]108 mmol/LHigh 97-105Seagraves HospitalComment on above:Order Comment: Specimen Type: BLOOD SPECIMENPerformed By: #### 1987-12, #### [facility] CLIA [id number] [address] [place] [address] [place] AMERICACO2 [Moles/Vol]24 mmol/AXwjpiv98-60 [facility]agraves HospitalComment on above:Order Comment: Specimen Type: BLOOD SPECIMEN Performed By: #### 1987-12, #### [facility] CLIA [id number] [address] [place] [address] [place] AMERICACreatinine [Mass/Vol]0.91 mg/dLNormal 0.58-0.96[facility] HospitalComment on above:Order Comment: Specimen Type: BLOOD SPECIMENPerformed By: #### 1987-12, #### [facility] CLIA [id number] [address] [place] [address] [place] AMERICAGFR/1.73 sq M.predicted among blacks MDRD (S/P/Bld) [Vol rate/Area]mL/min/{1.73_m2}[facility] LondonComment on above:Order Comment: Specimen Type: BLOOD SPECIMENPerformed By: #### 1987-12, #### [facility] CLIA [id number] [address] [place] [address] [place] AMERICAGFR/1.73 sq M.predicted among non- blacks MDRD (S/P/Bld) [Vol rate/Area]59 mL/min/{1.73_m2}[facility] Comment on above:Order Comment: Specimen Type: BLOOD SPECIMENResult Comment: eGFR (Estimated GFR) Units of measure: [...] accurately reflect actual GFR. Performed By: #### 1987-12, #### [facility] CLIA [id number] [address] [place] [address] [place] AMERICAGlucose [Mass/Vol]101 mg/zGEdri81-12 [facility] HospitalComment on above:Order Comment: Specimen Type: BLOOD SPECIMEN Result Comment: The [place] [employer] Association (ADA) provides guidance for cutoff [...] Standards of Medical Care in Diabetes 2016, [place] [employer]. Diabetes Care. 2016.39(Suppl 1).Performed By: #### 1987-12, #### [facility] CLIA [id number] [address] [place] [address] [place] AMERICAPotassium [Moles/Vol]3.4 mmol/LLow 3.7-5.1Seagraves HospitalComment on above:Order Comment: Specimen Type: BLOOD SPECIMENPerformed By: #### #### [facility] CLIA [id number] [facility] [place] [address] [place] AMERICAProtein [Mass/Vol]6.5 g/dLNormal6.3-8.0 [facility] HospitalComment on above:Order Comment: Specimen Type: BLOOD SPECIMEN Performed By: #### #### [facility] CLIA [id number] [address] [place] [address] [place] AMERICASodium [Moles/Vol]140 mmol/LNormal 136-144Seagraves HospitalComment on above:Order Comment: Specimen Type: BLOOD SPECIMENPerformed By: #### #### [facility] CLIA [id number] [address] [place] [address] [place] AMERICAUrea nitrogen [Mass/Vol]18 mg/dLNormal 7-21Seagraves HospitalComment on above:Order Comment: Specimen Type: BLOOD SPECIMEN Performed By: #### 23-8 #### [facility] CLIA [id number] [address] [place] [address] [facility] NOTEon 12-11-6100LT NOTEHNO ID: [id number] Author: José Antonio Tate RN Service: ? Author Type: Registered Nurse Type: ED Notes Filed: 08/12/2021 4:47 PM Note Text: Printed discharge instructions given to patient. Patient verbalizes understanding of discharge instructions, medication and follow up. Patient escorted to ER hospital exit in stable condition.[facility] NOTEHNO ID: [id number] Author: Elmer Wong RN Service: Nursing Author Type: Registered Nurse Type: ED Notes Filed: 08/12/2021 11:35 AM Note Text: ID band on. Checked two patient identifiers; name and . Comfort measures checked including pain, potty, possessions and position. Call peoples within reach.[facility] NOTEHNO ID: [id number] Author: Karsten Parekh RN Service: ? Author Type: Registered Nurse Type: ED Notes Filed: 08/12/2021 11:16 AM Note Text: Bed: Expected date: Expected time: Means of arrival: Comments: [facility] NOTEon 97-04-5306NW [facility] NOTEHNO ID: [id number] Author: Desiree Flower PA-C Service: Emergency Medicine Author Type: Physician Oral And Maxillofacial Pathologist Type: ED Provider Notes Filed: 08/12/2021 9:00 [...] knee with last operation in May in [place] presents to the ED with severe right knee pain for 3 weeks. She states she also feels burning and evxk-xvb-gqlquie sensation to the entire leg down to [...] Coronary atherosclerosis of unspecified type of vessel, [place] or graft s/p stents x 2 to [...] Reactions - Acetaminophen-Codei* Unknown, GI Upset - [place] Other: See Comments welts - Gold Au [...] or crepitus. Normal ran (more content not included)...NormalCarilion [facility] method (Bld) [Velocity]on 69-58-9729NUC (Bld) [Velocity] 38 mm/hHigh0-20[facility]ty HospitalComment on above:Order Comment: Specimen Type: BLOOD SPECIMENPerformed By: #### 14750-0, 4537-7 #### [facility] CLIA [id number] [address] panel Coag (PPP)on 98-06-3928DZJ Coag (PPP) [Relative time]1.9 {INR}High0.9-1.3[facility]ty HospitalComment on above: Order Comment: Specimen Type: BLOOD SPECIMENResult Comment: Vitamin K Antagonist (VKA) Therapeutic Range: INR 2 to 3 (Target INR of 2.5) Note: For patients treated with VKA drugs, such as warfarin, the [place] [employer] 2012 Guideline recommends [...] Chest 2012, 141:7S-47S Nat RA, et al. [facility] 2017, 70: 252-289Performed By: #### 74618-5 #### [facility] CLIA [id number] [address] Coag (PPP) [Time]20.2 sHigh9.7-13.0 [facility]ty HospitalComment on above:Order Comment: Specimen Type: BLOOD SPECIMEN Performed By: #### 57953-1 #### [facility] CLIA [id number] [address] HIP 3V PELV+ AP/LAT RTon 08-12-2021 XR HIP 3V PELV+ AP/LAT RT* * *Final Report* * * DATE OF [...] fracture. There is inferior vena cava filter. Relationship Mgr: RIKA Transcribe Date/Time: Aug 12 2021 1:34P Dictated by : VENECIA COLLINS MD This examination was interpreted and the report reviewed and electronically signed by: VENECIA COLLINS MD on Aug 12 2021 1:38PM EST [id number] VA Medical CenterXR KNEE 2V AP/LAT RTon 27-25-6888WK KNEE 2V AP/LAT RT* * *Final Report* * * DATE OF EXAM: Aug 12 2021 12:14PM WFX 5207 - XR KNEE 2V AP/LAT RT / PROCEDURE REASON: Joint pain, knee * * * * Physician Interpretation * * * * TECHNIQUE: XR KNEE 2V AP/LAT RT HISTORY: Joint pain, knee COMPARISON: Multiple previous radiographs from [facility], the most recent dates 06/09/2021. Initial postoperative [...] since initial postoperative radiograph. Clinical correlation recommended. Relationship Mgr: [facility] Transcribe Date/Time: Aug 12 2021 12:27P Dictated by : RAFI PURDY MD This examination was interpreted and the report reviewed and electronically signed by: RAFI PURDY MD on Aug 12 2021 12:37PM EST [id number] LUMBAR 3V AP/LAT/L5-S1on [id number] LUMBAR 3V AP/LAT/L5-S1* * *Final Report* * * DATE OF [...] of the abdominal aorta and iliac arteries. Relationship Mgr: PSCB Transcribe Date/Time: Aug 12 2021 1:34P Dictated by : VENECIA COLLINS MD This examination was interpreted and the report reviewed and electronically signed by: VENECIA COLLINS MD on Aug 12 2021 1:36PM EST [id number] OP NOTon [id number] OP NOT HNO ID: [id number] Author: Inessa French MD Service: Interventional Radiology Author Type: Physician Type: Brief Op Note Filed: 07/17/2021 3:08 PM Note Text: BRIEF OPERATIVE / PROCEDURE NOTE LOG ID: [id number] SURGERY/PROCEDURE DATE: 07/17/2021 INCISION/PROCEDURE START TIME: 3:02 PM INCISION CLOSE/PROCEDURE END TIME: 3:06 PM SURGEON(S)/PROCEDURALIST(S) AND POULTRY OFFAL WORKER(S): Surgeon(s) and Role: * Inessa French MD - Primary No Additional Staff SURGERY/PROCEDURE(S): Manoj removal ANESTHESIA: Local FINDINGS: Right chest Manoj removed intact. ESTIMATED BLOOD LOSS: <5 mls SPECIMENS: None COMPLICATIONS: None PRE-OP/PRE-PROCEDURE DIAGNOSIS: joint infection, completed therapy POST-OP/POST-PROCEDURE DIAGNOSIS: Same as Preop SIGNATURE: Inessa French MD PATIENT NAME: Leyla Lambert DATE: July 17, 2021 TIME: 3:07 PMNBronson LakeView HospitalHISTORY PHYSICALon [id number] PHYSICALHNO ID: [id number] Author: Inessa French MD Service: Interventional Radiology [...] DATE: July 17, 2021 TIME: 2:49 PM PAGER:[facility] CenterIR CVC TUNNEL NO PORT REMOVEon 07-17-2021 IR CVC TUNNEL NO PORT REMOVE* * *Final Report* * * DATE OF EXAM: Jul 17 2021 3:08PM [facility] 7670 - IR CVC TUNNEL NO PORT [...] loss (mL): Less than 10 Standardized report: SIR_TunneledCatheterRemoval_v3 COMPLICATIONS: There were no immediate complications and no other complications. CONCLUSION: The patient was comfortable and was discharged home in stable condition. The procedure was performed by the: attending radiologist, without an library services assistant. The attending radiologist performed the following procedural activities: Entire procedure IMPRESSION: REMOVAL OF RIGHT-SIDED TUNNELED MANOJ CATHETER. PLAN: Please re-consult interventional radiology if new catheter placement is desired. ATTESTATION: Signer name: Inessa French MD I attest that I was present for the entire procedure. I agree with the report as written. Relationship Mgr: RIKA Transcribe Date/Time: Jul 17 2021 3:12P Dictated by : INESSA FRENCH MD This examination was interpreted and the report reviewed and electronically signed by: INESSA FRENCH MD on Jul 17 2021 3:13PM EST [id number] Ford Kingswood Hospital EDon 05-57-3051CX EDHNO ID: [id number] Author: Betsey Montaño RN Service: Radiology Author [...] and Limited Mobility LEARNING RESPONSE DIAGNOSIS: ADULT: FDC antibiotics PATIENT/FAMILY RESPONSE: Verbalizes understanding of: POST-PROCEDURE [...] patient REFERRAL (RECOMMENDATION): None Electronically Signed By: [facility] [id number] Telephone (FVFXRY) LEYLA LAMBERT ([id number]) 1940 F Date Time Provider Department 07/16/21 DAWN WREN FVFXRY During your visit today, we recorded the following information about you: Dawn Wren RT(R) 07/16/2021 6:53 PM Signed You are scheduled for a catheter removal, On 07/17/2021. You are to arrive at 2:30 pmand Report to [facility] for Sedation Cases: [facility]:1st floor Admitting Desk. You can expect to be here for 2 hours. Account Information Clerk/Transportation: How will you be arriving for your procedure? Private car. You will need a responsible adult to accompany you to and from the procedure. Your medical driver is required to stay with you [...] Inject 0.3 mL subcutaneously once daily. 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 Relationship Mgr: RIKA Transcribe Date/Time: Jul 04 2021 10:45A Dictated by : PHUONG WAGNER MD This examination was interpreted and the report reviewed and electronically signed by: MARGARETH RODRIGUEZ MD on Jul 04 2021 2:30PM [facility] DIVISION OF RADIOLOGY* * *Final Report* * * DATE OF [...] significantly changed from prior exam. DIVISION OF RADIOLOGYProvider, [facility] [place] - 07/04/2021 * * *Final Report* * [...] total knee arthroplasty without evidence of complication. Relationship Mgr: RIKA Transcribe Date/Time: Jul 04 2021 10:45A Dictated by : PHUONG WAGNER MD This examination was interpreted and the report reviewed and electronically signed by: MARGARETH RODRIGUEZ MD on Jul 04 2021 2:30PM EST [facility] SystemRadiology Study observation (narrative)[facility] SystemXR Knee AP and Lateral and MerchantsOrdered By: Ccf Provider on 51-29-7648Juswrelzt ClinicC-Reactive Proteinon 80-05-6778OET [Mass/Vol]6.4 mg/LHigh0.0 - 5.0 mg/L [facility] Medical CenterInterpretation and review of laboratory resultsAbnormalMayo Clinic Health System– Chippewa ValleyCBC Auto Differentialon 60-29-1247Yczkpgib Eos #0.28[facility] Absolute Immature Granulocyte0.03[facility] Medical CenterAbsolute Lymph #1.20[facility] Absolute [place] #0.43[facility] Medical CenterBasophils (Bld) [#/Vol]0.08 10*3/uLUniversity Hospitals Samaritan Medical Center Basophils/100 WBC (Bld)2 %0 - 2 %[facility] Medical CenterDifferential TypeNOT REPORTEDUniversity Hospitals Samaritan Medical CenterEosinophils/100 WBC (Bld)5 %High1 - 4 %[facility] Medical CenterHematocrit (Bld) [Volume fraction]31.5 %Low36.3 - 47.1 %[facility] Medical CenterHemoglobin.gastrointestinal spec 1 Ql (Stl)9.8 g/dLLow11.9 - 15.1 g/dLUniversity Hospitals Samaritan Medical CenterImmature granulocytes/100 WBC (Bld)1 %Zkyr7IxfypUniversity Hospitals Samaritan Medical CenterInterpretation and review of laboratory results AbnormalUniversity Hospitals Samaritan Medical CenterLymphocytes/100 WBC (Bld)23 %Low24 - 43 %[facility] HealthH (RBC) [Entitic mass]29.6 pg25.2 - 33.5 pgKettering HealthHC (RBC) [Mass/Vol]31.1 g/dL28.4 - 34.8 g/dLKettering HealthV (RBC) [Entitic vol]95.2 fL82.6 - 102.9 fL [facility] Medical CenterMonocytes/100 WBC (Bld)8 %3 - 12 %[facility] Medical CenterNRBC Automated0.00.0 per 100 WBCUniversity Hospitals Samaritan Medical CenterPlatelet distribution width (Bld) [Ratio]19.6 %High11.8 - 14.4 %[facility] Medical CenterPlatelet EstimateNOT REPORTEDUniversity Hospitals Samaritan Medical CenterPlatelet mean volume (Bld) [Entitic vol]9.8 fL8.1 - 13.5 fLUniversity Hospitals Samaritan Medical CenterPlatelets (Bld) [#/Vol]393 10*3/uLCleveland Clinic Mentor Hospital HealthRBC (Bld) [#/Vol]3.31 10*6/uLLow3.95 - 5.11 m/uLUniversity Hospitals Samaritan Medical Center RBC (Bld) [#/Vol]NOT REPORTEDUniversity Hospitals Samaritan Medical CenterSegmented neutrophils/100 WBC (Bld)61 % 36 - 65 %[facility] Medical CenterSegs Absolute3.21[facility] Medical CenterWBC (Bld) [#/Vol]5.2 10*3/uL [facility] Medical CenterWBC (Bld) [#/Vol]NOT REPORTEDAmery Hospital and ClinicCreatinine, Serumon 23-67-9168Xhehmyhelu [Mass/Vol]1.04 mg/dLHigh0.50 - 0.90 mg/dLUniversity Hospitals Samaritan Medical CenterGFR >60>60 mL/minUniversity Hospitals Samaritan Medical CenterGFR Non- Xbysjoij12 mL/minLow>60[facility] Medical CenterInterpretation and review of laboratory resultsAbnormal [facility] Hospital and ClinicLaboratory - Chemistry and Chemistry - challengeon 37-61-5954JNB/1.73 sq M.predicted MDRD (S/P/Bld) [Vol rate/Area][facility] Comment on above:Average GFR for 70 or more years old: 75 mL/min/1.73sq m Chronic Kidney Disease: <60 mL/min/1.73sq m Kidney failure: <15 mL/min/1.73sq m eGFR calculated using average adult body mass. Additional eGFR calculator available at: http://[email or web address]/multiple_crcl_2011.htm Stage 1: Some kidney damage normal GFR Stage 2: Mild kidney damage GFR 60-89 Stage 3: Moderate kidney damage GFR 30-59 Stage 4: Severe kidney damage GFR 15-29 Stage 5: Severe kidney damage GFR <15 ESRD - chronic treatment by dialysis or transplant Tobacco Screening.on 17-95-1740Ttpb risk assessmentb) One or more falls in the last telwRO-Csunfjv-Yjujbc [facility] Work Phone: Tobacco use status CPHSb) GjTD-Jdcbxsu-Lcgdhw [facility] Work Phone: [phone]-ICNGzwwtee By: Historical Provider on 77-83-2231XTM Coag (Bld) [Relative time]1.6 {INR}[employer] Work Phone: [facility] HealthcareHopsFromVirginia.com Work Phone: No Panel Informationon 05-01-2021 http://[email or web address]/Visible Measures/Bantam Live.aspx?={[id number] C}NR-Tgkzxmk-[facility] Work Phone: [phone]-Ngdatqe-[facility] Work Phone: http://Winning[employer]/Visible Measures/Bantam Live.aspx?={[id number] A}QV-Wtimihe-Qpkhwe [facility] Work Phone: [phone]-UpxcsnlJeff [facility] Work Phone: No Panel Informationon 04-09-2021 http://[email or web address]/Visible Measures/Bantam Live.aspx?={[id number] D}[facility] Work Phone: [facility] Work Phone: Tobacco Screening.on 23-95-4257Cakr risk assessmentb) One or more falls in the last xvamIP-Elqcnbmpbzfwtakj-Ibvptyt 6 [facility] Work Phone: Tobacco use status CPHSb) No JT-Wkyhprbuiskrdify-Hibrvli 6 [facility] Work Phone: [phone]-BDLPqiqxid By: Historical Provider on 68-65-7945JED Coag (Bld) [Relative time]2.4 {INR}[employer] Work Phone: [facility] Work Phone: GLYCOHEMOGLOBIN A1Con 52-96-6775CQU RECOMMENDATIONADA THERAPEUTIC TARGET 6.0 - 7.0 ACTION SUGGESTED > 7.0NormalThe [facility] Comment on above:Performed By: #### A1C #### [facility] [address] [place] [address] Jennifer KarenGlucose [Mass/Vol]111 mg/dLNoUniversity Hospitals Lake West Medical CenterComment on above:Performed By: #### A1C #### [facility] [address] [place] [address] Jennifer QvaqaIyK2i (Bld) [Mass fraction]5.5 %Normal<=6.0[facility] Comment on above:Performed By: #### A1C #### [facility] [address] [place] [address] Jennifer KarenCBC AUTO DIFFon 78-08-5117MFUN #0.1 103/ulNormal0.0-0.1[facility]field HospitalComment on above:Performed By: #### CBC #### [facility] [address] [place] [address] Jennifer KarenBasophils/100 WBC (Bld)0.9 %Normal0.2-2.0[facility] Comment on above:Performed By: #### CBC #### [facility] [address] [place] [address] Jennifer KarenEO #0.1 103/ulNormal0.0-0.7The OhiohealthComment on above: Performed By: #### CBC #### [facility] [address] [place] [address] Jennifer KarenEosinophils/100 WBC (Bld)1.3 %Normal0.9-7.0[facility] Comment on above:Performed By: #### CBC #### [facility] [address] [place] [address] Jennifer KarenErythrocyte distribution width (RBC) [Ratio]15.7 %Critically high 11.0-15.0[facility] HospitalComment on above:Performed By: #### CBC #### [facility] [address] [place] [address] Jennifer KarenHematocrit (Bld) [Volume fraction]40.1 %Ypqqqo83.0-48.0The OhiohealthComment on above:Performed By: #### CBC #### [facility] [address] [place] [address] Jennifer KarenHemoglobin (Bld) [Mass/Vol]12.1 g/jKRvucys92.0-16.0The OhiohealthComment on above:Performed By: #### CBC #### [facility] [address] [place] [address] Jennifer KarenIG #0.03 10e3/ulNormal0.00-0.03The OhiohealthComment on above:Performed By: #### CBC #### [facility] [address] [place] [address] Jennifer KarenIG %0.4 %Normal0.0-0.5The OhiohealthComment on above: Performed By: #### CBC #### [facility] [address] [place] [address] Jennifer KarenLYMPH #1.8 103/ulNormal1.2-3.8The OhiohealthComment on above: Performed By: #### CBC #### [facility] [address] [place] [address] Jennifer KarenLymphocytes/100 WBC (Bld)24.2 %Buurkk21.5-60.0[facility] Comment on above:Performed By: #### CBC #### [facility] [address] [place] [address] Jennifer KarenMANUAL DIFF REQNONormalThe OhiohealthComment on above: Performed By: #### CBC #### [facility] [address] [place] [address] Jennifer KarenMCH (RBC) [Entitic mass]27.1 veIparay08.7-34.0[facility] Comment on above:Performed By: #### CBC #### [facility] [address] [place] [address] Jennifer KarenMCHC (RBC) [Mass/Vol]30.2 g/aCNojnhb27.9-35.2[facility] Comment on above:Performed By: #### CBC #### [facility] [address] [address] Jennifer KarenMCV (RBC) [Entitic vol]89.7 iZEdsrxw99.0-99.0[facility] Comment on above:Performed By: #### CBC #### [facility] [address] [place] [address] Jennifer KarenMONO #0.5 103/ulNormal0.3-0.8The OhiohealthComment on above: Performed By: #### CBC #### [facility] [address] [place] [address] Jennifer KarenMonocytes/100 WBC (Bld)6.8 %Normal1.7-12.0[facility] Comment on above:Performed By: #### CBC #### [facility] [address] [place] [address] Jennifer KarenNEUT #5.0 103/ulNormal1.4-6.5The OhiohealthComment on above: Performed By: #### CBC #### [facility] [address] [place] [address] Jennifer KarenNeutrophils/100 WBC (Bld)66.4 %Epwhlx14.0-75.0[facility] Comment on above:Performed By: #### CBC #### [facility] [address] [place] [address] Jennifer KarenPlatelet mean volume (Bld) [Entitic vol]10.0 fLNormal9.5-13.5The OhiohealthComment on above:Performed By: #### CBC #### [facility] [address] [place] [address] Jennifer KqjpvHKE648 103/suDzeciw329-837Aki OhiohealthComment on above: Performed By: #### CBC #### [facility] [address] [place] [address] Jennifer KarenRBC4.47 106/ulNormal4.20-5.40The OhiohealthComment on above: Performed By: #### CBC #### [facility] [address] [place] [address] Jennifer KarenWBC7.5 103/ulNormal4.0-11.0The [facility] on above: Performed By: #### CBC #### [facility] [address] [place] [address] Jennifer KarenFREE T3on 00-87-0456CDCZ T31.95 pg/mlLCritically low2.77-5.27The [facility] on above:Performed By: #### LIPID, FT3, AST, ALT, BMP, TSH #### [facility] [address] [place] [address] Jennifer KarenFREE T4on 50-17-3783Iino T4 [Mass/Vol]1.13 ng/dLNormal0.78-2.19The [facility] on above:Performed By: #### FT4 #### [facility] [address] [place] [address] Jennifer KarenLIPID PROFILEon 64-92-1873IQXT-HDL RATIO NORMSEE BELOWNoUniversity Hospitals Lake West Medical CenterComment on above:Result Comment: 3.3 - 4.4 LOW RISK 4.4 - 7.1 AVERAGE RISK 7.1 - 11.0 MODERATE RISK >11.0 HIGH RISKPerformed By: #### LIPID, FT3, AST, ALT, BMP, TSH #### [facility] [address] [place] [address] Jennifer KarenCholesterol [Mass/Vol]205 mg/dLCritically high<=200The [facility] on above:Performed By: #### LIPID, FT3, AST, ALT, BMP, TSH #### [facility] [address] [place] [address] Jennifer KarenCholesterol in HDL [Mass/Vol]44 mg/dLAshtabula County Medical Center Comment on above:Performed By: #### LIPID, FT3, AST, ALT, BMP, TSH #### [facility] [address] [place], [place] [address] Jennifer KarenCholesterol in LDL [Mass/Vol]129.0 mg/dLAshtabula County Medical Center Comment on above:Performed By: #### LIPID, FT3, AST, ALT, BMP, TSH #### [facility] [address] [place] [address] Jennifer KarenCholesterol.total/Cholesterol in HDL [Mass ratio]4.7 {ratio}Normal The OhiohealthComment on above:Performed By: #### LIPID, FT3, AST, ALT, BMP, TSH #### [facility] [address] [place] [address] Jennifer KarenHDL NORMAL> or = 60 mg/dl - LOW CARDIOVASCULAR RISK <40 mg/dl - HIGH CARDIOVASCULAR RISKNoUniversity Hospitals Lake West Medical CenterComment on above:Performed By: #### LIPID, FT3, AST, ALT, BMP, TSH #### [facility] [address] [place] [address] Jennifer KarenLDL CALC NORMALSEE BELOWNoUniversity Hospitals Lake West Medical CenterComment on above: Result Comment: <100 mg/dl OPTIMAL 100 - 129 mg/dl NEAR OR ABOVE OPTIMAL 130 - 159 mg/dl BORDERLINE HIGH 160 - 189 mg/dl HIGH >190 mg/dl VERY HIGHPerformed By: #### LIPID, FT3, AST, ALT, BMP, TSH #### [facility] [address] [place] [address] Jennifer KarenTriglyceride [Mass/Vol]160 mg/dLCritically high<=150The OhiohealthComment on above:Performed By: #### LIPID, FT3, AST, ALT, BMP, TSH #### [facility] [address] [place] [address] Jennifer KarenVLDL CALC32.0 mg/dLAshtabula County Medical CenterComment on above: Performed By: #### LIPID, FT3, AST, ALT, BMP, TSH #### [facility] [address] [place] [address] Jennifer KarenPROF CHEM 8 (BAS METB)on 60-32-9938Rdtpm gap [Moles/Vol]10.0 mmol/L NormalThe [facility] HospitalComment on above:Performed By: #### LIPID, FT3, AST, ALT, BMP, TSH #### [facility] [address] [place] [address] Jennifer KarenCalcium [Mass/Vol]8.7 mg/dLNormal8.4-10.2[facility] Comment on above:Performed By: #### LIPID, FT3, AST, ALT, BMP, TSH #### [facility] [address] [place] [address] Jennifer KarenChloride [Moles/Vol]107 mmol/MFnaduf40-568Hqx [facility] Comment on above:Performed By: #### LIPID, FT3, AST, ALT, BMP, TSH #### [facility] [address] [place] [address] Jennifer KarenCO2 [Moles/Vol]27.0 mmol/AElyods64.0-30.0[facility] Comment on above:Performed By: #### LIPID, FT3, AST, ALT, BMP, TSH #### [facility] [address] [place] [address] Jennifer KarenCreatinine [Mass/Vol]0.95 mg/dLNormal0.52-1.04[facility] Comment on above:Performed By: #### LIPID, FT3, AST, ALT, BMP, TSH #### [facility] [address] [place] [address] Jennifer KarenEGFR-AF FRENCH>60Normal>=60[facility] HospitalComment on above: Performed By: #### LIPID, FT3, AST, ALT, BMP, TSH #### [facility] [address] [place] [address] Jennifer KarenEGFR-NON AF EYKXIROW70 mL/min/1.45w8Oqiymdmgmu low>=60[facility] HospitalComment on above:Performed By: #### LIPID, FT3, AST, ALT, BMP, TSH #### [facility] [address] [place] [address] Jennifer KarenGlucose [Mass/Vol]149 mg/dLCritically padn11-621Gml [facility] HospitalComment on above:Performed By: #### LIPID, FT3, AST, ALT, BMP, TSH #### [facility] [address] [place] [address] Jennifer KarenPotassium [Moles/Vol]4.0 mmol/LNormal3.4-5.0[facility] Comment on above:Performed By: #### LIPID, FT3, AST, ALT, BMP, TSH #### [facility] [address] [place] [address] Jennifer KarenSodium [Moles/Vol]140 mmol/SNlminr348-181Dwu [facility] Comment on above:Performed By: #### LIPID, FT3, AST, ALT, BMP, TSH #### [facility] [address] [place] [address] Jennifer KarenUrea nitrogen [Mass/Vol]14.0 mg/dLNormal7.0-17.0[facility] HospitalComment on above:Performed By: #### LIPID, FT3, AST, ALT, BMP, TSH #### [facility] [address] [place] [address] Jennifer KarenUrea nitrogen/Creatinine [Mass ratio]14.7 mg/mgNormalThe OhiohealthComment on above:Performed By: #### LIPID, FT3, AST, ALT, BMP, TSH #### [facility] [address] [place] [address] Jennifer KarenSGOTon 67-99-0411QOC [Catalytic activity/Vol]17 U/WNwotvo00-28Ywl [facility]healthComment on above:Performed By: #### LIPID, FT3, AST, ALT, BMP, TSH #### [facility] [address] [place] [address] Jennifer KarenSGPTon 63-46-1368OZB [Catalytic activity/Vol]10 U/LNormal9-52The [facility]Comup health system on above:Performed By: #### LIPID, FT3, AST, ALT, BMP, TSH #### [facility] [address] [place] [address] Jennifer KarenTSHon 98-42-7066YYT3.167 uIU/mLNormal0.470-4.680The OhiohealthComment on above:Performed By: #### LIPID, FT3, AST, ALT, BMP, TSH #### [facility] [address] [place], [place] [address] Jennifer GONZALES BELOWNormalThOhio State Health SystemComment on above:Result Comment: <0.34 UIU/ml HYPERTHYROID 0.34-5.60 UIU/ml EUTHYROID >5.60 UIU/ml HYPOTHYROIDPerformed By: #### LIPID, FT3, AST, ALT, BMP, TSH #### [facility] [address] [place], [place] [address] Jennifer HernandezBeta-2 Transferinon 62-96-2722Mgta-2 transferrin Ql (Body fld)Not apfnkgnvRZ-Jsihwpxslegukr-Rwltljif Work Phone: comment on above:Due to sample matrix, unable to concentrate sample to desired 10X [...] developed and its performance characteristics determined by [facility]. It has not been cleared or approved by the US Food and Drug Administration. This test was performed in a CLIA certified laboratory and is intended for clinical purposes.Performed By: [facility] [place] [address]Durmcuvepx Director: Cortney Ortiz MDTobacco Screening.on 09-40-1345Ainr risk assessmentb) One or more falls in the last qcfcFG-Axsisvpugklpiq-Rnfdkmdb Work Phone: Tobacco use status CPHSb) QpPN-Leimgsxzgudhem-Tudfifwk Work Phone: No Panel Informationon 66-64-7375Orvihg YO-Rzdjjvwynwvlsi-Metyknsc Work Phone: [phone]-SLHKtdqmgo By: Historical Provider on 09-47-9145NVG Coag (Bld) [Relative time]2.6 {INR}[employer] Work Phone: [facility] Work Phone: cT Sinuses Without Contrast Volumetric Surgical Planningon 12-22-2878IX Sinuses Without Contrast Volumetric Surgical Planning EbutpyFM-Jbktndifepfpdl-Rnvdodaw Work Phone: Tobacco Screening.on 86-86-8234Skkn risk assessmentb) One or more falls in the last ndmlXX-Pkbpdraaumlevk-Lzwzeaqm Work Phone: Tobacco use status CPHSb) TeTE-Ozoacbtbkrovpl-Ifmzrbft Work Phone: [phone]-PWISyquxdf By: Historical Provider on 14-89-2718ITN Coag (Bld) [Relative time]3.3 {INR}[employer] Work Phone: [facility] HealthcareEverTune Phone: Tobacco Screening.on 38-98-7172Ludv risk assessmentb) One or more falls in the last xzquLC-Exdbvddacvrmew-Hkdaswju Work Phone: Tobacco use status CPHSb) ZdEQ-Yhnmwybtghcudf-Rekdvkie Work Phone: [phone]-QRXSiseleq By: Historical Provider on 55-01-3149VAA Coag (Bld) [Relative time]3.6 {INR}[employer] Work Phone: XR HIP GENERAL 3V PELV/AP/LAT LTon 34-08-8138Doelbrpwx ClinicProtime-INRon 43-40-5784EPJ Coag (PPP) [Relative time]1.6 {INR}[employer]- [place], [place]History and Physical - Surgical Update < 30 dayson 07-05-2020 History and Physical - Surgical Update < 30 daysHistory & Physical Reviewed: I have reviewed the [...] Completion Last Updated: 05-Jul-2020 11:25 by Garland Vincent)[facility] HospitalHomegoing Instructionson 09-23-0105Bkjoleiqn InstructionsAdditional Instructions: Belongings Returned: Valuables/Medications/Belongings Returnedyes Electronic Signatures: Elvin Guzmán) (Signed 05-Jul-2020 12:36) Authored: Additional Instructions Last Updated: 05-Jul-2020 12:36 by Elvin Guzmán)[facility] HospitalOperative Reports - [facility] Operative Reports - [place] [id number] Patient Name: LEYLA LAMBERT : 1940 Date of Service: 07/05/2020 Patient Location: AOR AOR0 [id number] Patient Type: O Surgeon: Garland Vincent MD Report Type: Operative Reports PREOPERATIVE DIAGNOSES: 1. Rhinorrhea. 2. Chronic rhinitis. POSTOPERATIVE DIAGNOSES: 1. Rhinorrhea. 2. Chronic rhinitis. PROCEDURES: 1. Bilateral posterior nasal cavity cryoablation with ClariFix device. 2. Bilateral nasal endoscopy. SURGEON: Dr. Garland Vincent. POULTRY OFFAL WORKER(S): None. COMPLICATIONS: None. ESTIMATED BLOOD LOSS: Less [...] TT: 07/05/2020 03:18 PM EST DICTATION NUMBER: [id number] ISAÍAS JOB NUMBER: [id number] CC: Epi Andrews, [id number] Electronic Signatures: Garland Vincent) (Signed on 05-Jul-2020 16:26) Authored Unsigned, Draft (SYS GENERATED) (Entered on 05-Jul-2020 15:18) Entered Last Updated: 05-Jul-2020 16:26 by Garland Vincent)[facility] HospitalPatient Profile - Preop v2on 53-47-2425Wfzpgnq Profile - Preop o0Jmkywrn: Initial Info: How to be AddressedJoyce Spoken Language PreferredEnglish Source of Informationpatient Are you currently using the Personal Electronic Health Record or [employer] InnovationsInterviewno Are you interested in learning more about [facility] for the management of your healthyes, information provided Email [email or web address] Stated Reason for AdmissionSinus surgery Primary Contact Name and NumberCarlos () [phone] Limitations on Visitors/Phone Callsnone Patient Belongingsremains with patient Patient Belongings Remaining with Patientclothing Medications Brought to Hospitalno General Health: Weight in kg59.6 kilogram(s) Weight in uco792.3 pound(s) Weight Methodactual (measured) Scale Typestanding Height in feet5 feet Height in inches3 inch(es) Height in cm160 centimeter(s) Height Methodheight measured BMI (kg/m2)23.281 square meter Patient or Family Member Reaction to Anesthesiano previous reaction Blood Avoidance/Restrictionsnone Previous Transfusion Reactionno Health Mgmt: Symptoms/Conditions Managed at Homecardiovascular; respiratory; gastrointestinal; cancer; endocrine Cancer Symptoms/Conditionsbreast Cardiovascular Symptoms/Conditionshypertension Cardiovascular Symptoms/Conditions CommentOrthostatic Hypotension Endocrine Symptoms/Conditionsthyroid disease Gastrointestinal Symptoms/Conditionsreflux/heartburn Respiratory Symptoms/Conditionsasthma; COPD Barriers to Managing Healthnone Relationship/Environ: Living Arrangementshouse Lives Withspouse Resource/Environmental Concernsnone Anticipated Transition [place] [facility] Anticipated at Transitionnone Substance: Current or [...] instruction; written material Cultural Considerationsnone Developmental Considerationsnone Sabianist Considerationsnone Other learner availableno Falls RiskPatient location auto qualifies him/her for HIGH RISK. Are there any cultural, spiritual, christianity practices/values/needs that are important for us to knowno Pain Scalenumerical 0-10 Pain Scale Educationteaching provided Current Pain Level0 = None Acceptable Pain Level6 = Moderate Expression of Pain (nonverbal)verbalization Chronic Painyes Chronic Back pain locationupper, lower, [...] Last Updated: 05-Jul-2020 11:23 by Yana Benavidez (OMAR)[facility] HospitalPreop Checkliston 33-14-1765Wkcgt ChecklistPreop Checklist: Preop Checklist: Arrival Nddu16-Zgm-9109 Arrival Time10:48 Procedure TypeESS NPO Jhrgxu76-Hlp-6176 17:00 ID Band Onyes Allergy Bandyes Consent Signedpending H&P Completepending Anesthesia Assessment Completedpending EKG Performednot ordered Chest X-Ray Performednot ordered HCG Urine TestN/A Chlorhexadine Bath Givennot applicable Nasal Antiseptic Appliednot applicable Hair Washednot applicable Soap and water bath with hair shampoo the night before surgerynot applicable Hat placed on prior to transportnot applicable SCD's Appliedyes HAN [...] Communication: Language / CommunicationEnglish Electronic Signatures: Yana Benavidez) (Signed 05-Jul-2020 11:08) Authored: Preop Checklist Last Updated: 05-Jul-2020 11:08 by Yana Benavidez (RN)NormalLos Angeles Community Hospital of NorwalkBASIC METABOLIC PANELon 35-08-4715Fuaxi gap [Moles/Vol]9 mmol/LLow10 - 20[facility] of NorwalkComment on above: Performed By: #### BMP #### [address] [place], [place] [id number] [Mass/Vol]9.2 mg/dLNormal8.6 - 10.3UH Unity Medical CenterComment on above:Performed By: #### BMP #### [address] [place], [place] [id number] [Moles/Vol]106 mmol/EQadkmh41 - 107Los [facility] of NorwalkComment on above:Performed By: #### BMP #### [address] [place], [place] [id number] [Mass/Vol]0.87 mg/dLNormal0.50 - 1.05UH Unity Medical CenterComment on above:Performed By: #### BMP #### [address] [place], [place] [id number]-SPHLQXE AM.>60Normal>60[facility] of NorwalkComment on above:Result Comment: CALCULATIONS OF ESTIMATED GFR ARE PERFORMED USING THE MDRD STUDY EQUATION FOR THE IDMS-TRACEABLE CREATININE METHODS. CLIN CHEM 2007;53:766-72Performed By: #### BMP #### [address] [place], [place] [id number]-VLK AM.>60Normal>60[facility] of NorwalkComment on above:Performed By: #### BMP #### [address] [place], [place] [id number] [Mass/Vol]88 mg/xBKwtaus39 - 99UH [facility] Medical CenterComment on above:Performed By: #### BMP #### [address] [place], [place] [id number] (Bld) [Moles/Vol]28 mmol/ZPgqimx17 - 32[facility] of NorwalkComment on above:Performed By: #### BMP #### [address], [place] [id number] [Moles/Vol]4.4 mmol/LNormal3.5 - 5.3UH [facility] Medical CenterComment on above:Performed By: #### BMP #### [address], [place] [id number] [Moles/Vol]139 mmol/BInvqxz965 - 145UH [facility] Medical CenterComment on above:Performed By: #### BMP #### [address], [place] [id number] nitrogen [Mass/Vol]19 mg/dLNormal6 - 23[facility] of NorwalkComment on above:Performed By: #### BMP #### [address], [place] [id number] 07-45-2405Igtkvxqliau distribution width (RBC) [Ratio]15.5 %High11.5 - 14.5[facility] of NorwalkComment on above:Performed By: #### CBC #### [address], [place] [id number] (Bld) [Volume fraction]40.0 %Kthncx03.0 - 46.0[facility] of NorwalkComment on above:Performed By: #### CBC #### [address], [place] [address]Tyhrfknllc (Bld) [Mass/Vol]13.0 g/zNIfdhul82.0 - 16.0 [facility] NorwalkComment on above:Performed By: #### CBC #### [address], [place] [id number] (RBC) [Mass/Vol]32.5 g/tCDhymvl48.0 - 36.0[facility] NorwalkComment on above:Performed By: #### CBC #### [address], [place] [id number] (RBC) [Entitic vol]85 xTBcqkzr01 - 100[facility] of NorwalkComment on above:Performed By: #### CBC #### [address], [place] [id number] (Bld) [#/Vol]356 10*3/pMFpbytf294 - 450UH [facility] Medical CenterComment on above:Performed By: #### CBC #### [address], [place] [id number] (Bld) [#/Vol]4.69 x10E12/LNormal4.00 - 5.20[facility] NorwalkComment on above:Performed By: #### CBC #### [address], [place] [id number] (Bld) [#/Vol]7.0 10*3/uLNormal4.4 - 11.3[facility] of NorwalkComment on above:Performed By: #### CBC #### [address], [place] [id number] SCREENon 59-22-8414wLFU Coag (Bld) [Time] 30 rWiuccs25 - 35[facility] of NorwalkComment on above: Result Comment: THE APTT IS NO LONGER USED FOR MONITORING UNFRACTIONATED HEPARIN THERAPY. FOR MONITORING HEPARIN THERAPY, USE THE HEPARIN ASSAY.Performed By: #### COAGS #### [address], [place] [id number] Coag (PPP) [Relative time]1.1 {INR}Normal0.9 - 1.1 [facility] of NorwalkComment on above:Performed By: #### COAGS #### [address] [place], [place] [id number] Coag (PPP) [Time]13.3 qOptmws69.1 - 13.3[facility] of NorwalkComment on above:Performed By: #### COAGS #### [address] [place], [place] [id number]-RDRbe 60-19-9308PCD Coag (PPP) [Relative time] 1.4 {INR}[facility]- [place], KYProtime-INRon 43-12-1003JVT Coag (PPP) [Relative time]1.9 {INR}[facility]- [place], KYBasic Metabolic Panel w/ Reflex to MGon 29-91-0539Ztjau gap [Moles/Vol]13 mmol/L9 - 17 mmol/LMercy Health- [place], KYBun/Cre Tukqh25Iyquq Health- [place], KYCalcium [Mass/Vol]9.0 mg/dL8.6 - 10.4 mg/dLCleveland Clinic [facility]- [place], KYChloride [Moles/Vol]106 mmol/L98 - 107 mmol/LMohiohealth o'bleness hospitaly [facility]- [place], [place] CO2 [Moles/Vol]18 mmol/LLow20 - 31 mmol/LMercy Health- [place], KYCreatinine [Mass/Vol]0.93 mg/dLHigh0.5 - 0.9 mg/dLCleveland Clinic [facility]- [place], KYGFR >60>60 mL/minMer Health- [place], KYGFR Non- Vgcxgbal55 mL/minLow>60[facility]- [place], KYGlucose [Mass/Vol]125 mg/nAQrfz71 - 99 mg/dLUniversity Hospitals Samar[facility]- [place], [place] Interpretation and review of laboratory resultsAbnormalMerAstria Regional Medical Center- [place], [place] Potassium [Moles/Vol]4.0 mmol/L3.7 - 5.3 mmol/LMercy Health- [place], KYSodium [Moles/Vol]137 mmol/L135 - 144 mmol/LMohiohealth o'bleness hospitaly Health- [place], KYUrea nitrogen [Mass/Vol]17 mg/dL8 - 23 mg/dLCleveland Clinic [facility]- [place], KYBrain Natriuretic Peptideon [id number] and review of laboratory resultsAbnormalMerAstria Regional Medical Center- [place], KYNatriuretic peptide B (Bld) [Mass/Vol]Pro-BNP Reference Range:[facility]- [place], KYComment on above: Rule Out: <300 Baird Zone: Age <50 300-450 Age 50-75 300-900 Age >75 300-1800 Usually represents mild to moderate HF but other cardiopulmonary causes cannot be ruled out. Rule In: Age <50 >450 Age 50-75 >900 Age >75 >1800 Natriuretic peptide B (Bld) [Mass/Vol]1209 pg/mLHigh<300[place], [place] Comment on above:Pro-BNP results cannot be compared to BNP results.CBC Auto Differentialon [id number] (Bld) [#/Vol]0.06 10*3/[facility], [place] Basophils/100 WBC (Bld)1 %0 - 2 %[facility], AKDifferential TypeNOT REPORTEDKettering Health [place], AKEosinophils (Bld) [#/Vol]0.10 10*3/[facility], AKEosinophils/100 WBC (Bld)1 %1 - 4 %[place], KYErythrocyte distribution width (RBC) [Ratio]15.9 %High11.8 - 14.4 %[place], [place] Hematocrit (Bld) [Volume fraction]38.2 %36.3 - 47.1 %[place], [place] Hemoglobin (Bld) [Mass/Vol]12.2 g/dL11.9 - 15.1 g/dLKettering Health [place], AKImmature granulocytes (Bld) [#/Vol]10*3/[facility], AKImmature granulocytes (Bld) [#/Vol]0 %0[place], KYInterpretation and review of laboratory resultsAbnormalKettering Health [place], AKLymphocytes (Bld) [#/Vol]1.73 10*3/[facility], AKLymphocytes/100 WBC (Bld)23 %Low24 - 43 %[facility], AKMCH (RBC) [Entitic mass]27.8 pg25.2 - 33.5 pgKettering Health [place], AKMCHC (RBC) [Mass/Vol]31.9 g/dL28.4 - 34.8 g/dLKettering Health [facility], AKMCV (RBC) [Entitic vol] 87.0 fL82.6 - 102.9 fLBurnham, KYMonocytes (Bld) [#/Vol]0.55 10*3/uL [facility]amisburgJACIELMonocytes/100 WBC (Bld)7 %3 - 12 %[place], [place] Platelet mean volume (Bld) [Entitic vol]10.0 fL8.1 - 13.5 fLBurnham, [place] Platelets (Bld) [#/Vol]315 10*3/uLKettering Health Miamisburg AKPlatelets (Bld) [#/Vol]NOT REPORTED[place], KYRBC (Bld) [#/Vol]4.39 10*6/uL3.95 - 5.11 m/uLKettering Health [facility], AKRBC morphology finding Nom (Bld)NOT REPORTED[place], [place] Segmented neutrophils/100 WBC (Bld)68 %High36 - 65 %[facility]amisburgJACIELSegs Absolute5.24[facility] JACIELWBC (Bld) [#/Vol]7.7 10*3/uLHocking Valley Community Hospital JACIEL WBC (Bld) [#/Vol]0.0 10*3/uL0.0 per 100 WBCKettering Health Miamisburg, AKWBC MorphologyNOT REPORTED[place], KYCT CHEST PULMONARY EMBOLISM W CONTRASTon 04-17-2020 1. No pulmonary embolism. No acute abnormality in the chest. 2. Ill-defined 6 mm right upper lobe ground-glass nodule. A follow-up chest CT in 6-12 months is recommended, as outlined below. 3. Severecoronary artery disease. RECOMMENDATIONS: 6.0 mm ground glass [...] adhere to Lung-RADS guidelines. Reference: Radiology. 2017; 284(1):228-43.[place], KYEXAMINATION: CTA OF THE CHEST 04/17/2020 2:25 pm [...] COMPARISON: 05/04/2018 HISTORY: ORDERING SYSTEM PROVIDED HISTORY: sob TECHNOLOGIST PROVIDED HISTORY: Cp sob Acute chest pain and shortness of breath. Initial examination. FINDINGS: Pulmonary Arteries: Pulmonary arteries are adequately opacified for evaluation. No evidence of intraluminal filling defect to suggest pulmonary embolism. Main pulmonary artery is normal in caliber. Mediastinum: The heartis enlarged. There is no pericardial effusion. Severe coronary artery calcifications are present. The thoracic aorta is atherosclerotic, but nonaneurysmal. No mediastinal or hilar lymphadenopathy is demonstrated. Lungs/pleura: No focal infiltrate, pleural effusion or pneumothorax is demonstrated. There is atelectasis in the base of the left lower lobe. Minimal emphysema is present. There is an ill- defined 6 mm ground-glass right upper lobe nodule, axial image 41. Upper Abdomen: There is a 4.9 cm left renal cyst. Soft Tissues/Bones: A left subclavian transvenous cardiac device is present. No suspicious osteolytic or osteoblastic lesions are seen.[facility]- [place], JACIELEdi, [facility] Incoming Radiant Results From [employer]us - 04/17/2020 3:53 PM EDT EXAMINATION: CTA [...] COMPARISON: 05/04/2018 HISTORY: ORDERING SYSTEM PROVIDED HISTORY: sob TECHNOLOGIST PROVIDED HISTORY: Cp sob Acute chest pain and shortness of [...] to Lung-RADS guidelines. Reference: Radiology. 2017; 284(1):228-43. [place], KYMetabolic Panelon [id number]/1.73 sq M predicted among non-blacks MDRD (S/P/Bld) [Vol rate/Area][facility] on above: Average GFR for 70 or more years old: 75 mL/min/1.73sq m Chronic Kidney Disease: <60 mL/min/1.73sq m Kidney failure: <15 mL/min/1.73sq m eGFR calculated using average adult body mass. Additional eGFR calculator available at: http://www.Sr.Pago.InSightec/multiple_crcl_2012.htm Stage 1: Some kidney damage normal GFR Stage 2: Mild kidney damage GFR 60-89 Stage 3: Moderate kidney damage GFR 30-59 Stage 4: Severe kidney damage GFR 15-29 Stage 5: Severe kidney damage GFR <15 ESRD - chronic treatment by dialysis or transplant Protime-INRon [id number] Coag (PPP) [Relative time]2.0 {INR}[facility] on above: Non-therapeutic Range: INR = 0.9-1.2 Therapeutic Range: Moderate Anticoagulant Intensity: INR = 2.0-3.0 High Anticoagulant Intensity: INR = 2.5-3.5 Interpretation and review of laboratory resultsAbChillicothe VA Medical Center [place], KYPT Coag (PPP) [Time]22.6 [facility], Sandraoponinon [id number] I.cardiac [Mass/Vol]NOT REPORTEDKettering Health [facility], Sandraoponin T.cardiac [Mass/Vol]NOT REPORTED<0.03 ng/mLK[facility]tering Health [facility], Sandraoponin, High Sensitivity 12 ng/L0 - 14 ng/[facility], JACIELComment on above: High Sensitivity Troponin values cannot be compared with other Troponin methodologies. Patients with high levels of Biotin oral intake (i.e >5mg/day) may have falsely decreased Troponin levels. Samples collected within 8 hours of biotin intake may require additional information for diagnosis. Troponin I.cardiac [Mass/Vol]NOT REPORTEDK[facility]tering Health [facility], Alananin T.cardiac [Mass/Vol]NOT REPORTED<0.03 ng/mLK[facility]tering Health [facility], Sandraoponin, High Sensitivity 14 ng/L0 - 14 ng/[facility], JACIELComment on above: High Sensitivity Troponin values cannot be compared with other Troponin methodologies. Patients with high levels of Biotin oral intake (i.e >5mg/day) may have falsely decreased Troponin levels. Samples collected within 8 hours of biotin intake may require additional information for diagnosis. XR CHEST PORTABLEon [id number]: ONE XRAY VIEW OF THE CHEST 04/17/2020 12:17 pm COMPARISON: 11/29/2018. HISTORY: ORDERINGSYSTEM PROVIDED HISTORY: sob TECHNOLOGIST PROVIDED HISTORY: sob FINDINGS: The cardiac silhouette ismildly enlarged and stable. Aortic vascular calcification. The lungs are clear. No infiltrate, pleural fluid or evidence of overt failure. Left-sided transvenous pacer.[facility]burgMelvina acute cardiopulmonary disease. Stable mild cardiomegaly without overt failure.[facility]burgRome Mhpn Incoming Radiant Results From [employer] - 04/17/2020 12:26 PM EDT EXAMINATION: ONE [...] disease. Stable mild cardiomegaly without overt failure. [facility], [facility] METABOLIC PANELon [id number] [Mass/Vol]8.4 mg/dLLow8.6-10.3The [address] HospitalComment on above:Order Comment: fax to [phone] ([facility] EP lab)Performed By: #### [id number] #### [facility] [address] [place] [address], USAChloride [Moles/Vol]111 mmol/VVbdh04-413Hur [address] HospitalComment on above:Order Comment: fax to [phone] ([facility] EP lab)Performed By: #### [id number] #### [facility] [address] [place] [address], USACO2 [Moles/Vol]24 mmol/FElqwqa09-53Fpn [address] HospitalComment on above:Order Comment: fax to [phone] ([facility] EP lab) Performed By: #### [id number] #### [facility] [address] [place] [address], USACreatinine [Mass/Vol]1.00 mg/dLNormal0.60-1.20The [address] HospitalComment on above:Order Comment: fax to [phone] ([facility] EP lab)Performed By: #### [id number] #### [facility] [address] [place] [address], USAGFR/1.73 sq M predicted among blacks MDRD (S/P/Bld) [Vol rate/Area]mL/min/{1.73_m2}Normal>60The [facility] Comment on above:Order Comment: fax to [phone] ([facility] EP lab)Result Comment: Calculation may not be valid for patients over 70 yearsPerformed By: #### [id number] #### [facility] [address] [place] [address], USAGFR/1.73 sq M predicted among non-blacks MDRD (S/P/Bld) [Vol rate/Area]53 ml/min/1.73sq mAbnormal>60[address] HospitalComment on above:Order Comment: fax to [phone] ([facility] EP lab)Result Comment: Calculation may not be valid for patients over 70 yearsPerformed By: #### [id number] #### [facility] [address] [place] [address], USAGlucose [Mass/Vol]88 mg/kBXhgzro76-324Vke [address] HospitalComment on above:Order Comment: fax to [phone] ([facility] EP lab)Performed By: #### [id number] #### [facility] [address] [place] [address], USAPotassium [Moles/Vol]3.8 mmol/LNormal3.5-5.1The [address] HospitalComment on above:Order Comment: fax to [phone] ([facility] EP lab)Performed By: #### [id number] #### [facility] [address] [place] [address], USASodium [Moles/Vol]140 mmol/JRzrwna326-377Ucd [address] HospitalComment on above:Order Comment: fax to [phone] ([facility] EP lab)Performed By: #### [id number] #### [facility] [address] [place] [address], USAUrea nitrogen [Mass/Vol]18 mg/dLNormal7-e [address] HospitalComment on above:Order Comment: fax to [phone] ([facility] EP lab)Performed By: #### [id number] #### [facility] [address] [place] [address], USACBC COMPLETE BLOOD COUNTon 07-58-4246Hhjhfavlsgg distribution width (RBC) [Ratio]16.8 %High11.5-15.0[address] HospitalComment on above:Order Comment: fax to [phone] ([facility] EP lab) Performed By: #### [id number] #### [facility] [address] [place] [address], USAHematocrit (Bld) [Volume fraction]36.9 %Shuaeg15.0-45.0[address] HospitalComment on above:Order Comment: fax to [phone] ([facility] EP lab)Performed By: #### [id number] #### [facility] [address] [place] [address], USAHemoglobin (Bld) [Mass/Vol]11.6 g/dLLow12.0-15.0[address] HospitalComment on above:Order Comment: fax to [phone] ([facility] EP lab)Performed By: #### [id number] #### [facility] [address] [place] [address], [facility] (RBC) [Entitic mass]27.1 naFzxezw47.0-33.0[address] HospitalComment on above:Order Comment: fax to [phone] ([facility] EP lab)Performed By: #### [id number] #### [facility] [address] [place] [address], USAMCHC (RBC) [Mass/Vol]31.4 g/dLLow32.0-35.0[address] HospitalComment on above:Order Comment: fax to [phone] ([facility] EP lab)Performed By: #### [id number] #### [facility] [address] [place] [address], USAMCV (RBC) [Entitic vol]86.2 hKBbioyg12.0-98.0[address] HospitalComment on above:Order Comment: fax to [phone] ([facility] EP lab)Performed By: #### [id number] #### [facility] [address] [place] [address], USANucleated RBC/100 WBC (Bld) [Ratio]0 %Normal0-0The [address] HospitalComment on above:Order Comment: fax to [phone] ([facility] EP lab)Performed By: #### [id number] #### [facility] [address] [place] [address], USAPLAT [id number] 10*3/fXVxxnut073-955Ecu [address] HospitalComment on above:Order Comment: fax to [phone] ([facility] EP lab) Performed By: #### [id number] #### [facility] [address] [place] [address], USARBC (Bld) [#/Vol]4.28 10*6/uLNormal3.80-5.00[address] HospitalComment on above:Order Comment: fax to [phone] ([facility] EP lab)Performed By: #### [id number] #### [facility] [address] [place] [address], USAWBC (Bld) [#/Vol]7.68 10*3/uLNormal4.00-10.60[address] HospitalComment on above:Order Comment: fax to [phone] ([facility] EP lab)Performed By: #### [id number] #### [facility] [address] [place] [address], USAMAGNESIUM BLOODon 41-65-3695Mzgvwyuuc [Mass/Vol]2.1 mg/dL Normal1.9-2.7The [address] HospitalComment on above:Order Comment: fax to [phone] ([facility] EP lab)Performed By: #### [id number] #### [facility] [address] [place] [address], USAPROTHROMBIN TIMEon 60-85-9631STC Coag (PPP) [Relative time] 2.19 {INR}High0.91-1.16The [address] HospitalComment on above: Order Comment: fax to [phone] ([facility] EP lab)Result Comment: [facility] RECOMMENDED INR FOR WARFARIN THERAPY ------- CONDITION INR PROPHYLAXIS OF VENOUS THROMBOSIS 2-3 (HIGH-RISK SURGERY) TREATMENT OF VENOUS THROMBOSIS 2-3 TREATMENT OF PULMONARY EMBOLISM 2-3 PREVENTION OF SYSTEMIC EMBOLISM: 2-3 ACUTE MYOCARDIAL INFARCTION TISSUE HEART VALVES VALVULAR HEART DISEASE ATRIAL FIBRILLATION RECURRENT SYSTEMIC EMBOLISM MECHANICAL HEART VALVE 2.5-3.5 FROM: ORAL ANTICOAGULANTS. MECHANISM OF ACTION, CLINICAL EFFECTIVENESS, AND OPTIMAL THERAPEUTIC RANGE. CHEST 1995;108:231S-246S.Performed By: #### [id number] #### [facility] [address] [facility] [place] [address], USAPT Coag (PPP) [Time]24.7 sHigh12.3-14.8The [address] HospitalComment on above:Order Comment: fax to [phone] ([facility] EP lab)Result Comment: ALL RESULTS MUST BE INTERPRETED WITH RESPECT TO BLOOD DRAWING ARTIFACT OR DILUTION ERROR OF ANTICOAGULANT AT THE TIME OF SAMPLING.Performed By: #### [id number] #### [facility] [address] [facility] [place] [address], USATROPONIN-Ion [id number] I.cardiac [Mass/Vol]0.00 ng/mLNormal0.00-0.04The [address] HospitalComment on above: Result Comment: REFERENCE RANGES: 0.00 - 0.14 ng/ml NEGATIVE 0.15 - 0.25 ng/ml INDETERMINATE > 0.25 ng/ml INDICATIVE OF AN M.I.Performed By: #### [id number] #### [facility] [address] [place] [address], [facility] CENTERTroponin I.cardiac [Mass/Vol]0.00 ng/mLNormal0.00-0.04[address] HospitalComment on above:Order Comment: fax to [phone] ([facility] EP lab)Result Comment: REFERENCE RANGES: 0.00 - 0.14 ng/ml NEGATIVE 0.15 - 0.25 ng/ml INDETERMINATE > 0.25 ng/ml INDICATIVE OF AN M.I.Performed By: #### [id number] #### [facility] [address] [place] [address], [facility]*SARS-CoV-2 COVID-19on 45-49-5516FUTV-COVID-19Not Detected NormalNot DetectedThe Wilson Street HospitalComment on above:Order Comment: The Aptima SARS-CoV-2 assay is a nucleic acid amplification test intended for the qualitative detection of RNA from SARS-CoV-2 isolated and purified from nasopharyngeal (MANAGER BEHAVIOR),oropharyngeal (OP), nasal swab, sputum, and bronchoalveolar lavage (BAL) specimens from patients with signs and symptoms of infection who are suspected of COVID-19. Results are for the identification of SARS-CoV-2 RNA. The SARS-CoV-2 RNA is generally detectable during the acute phase of infection. The Aptima SARS-CoV-2 Assay on the [employer] and [employer] Fusion system is intended for use by laboratory personnel specifically instructed and trained in the operation of the Magnolia and Magnolia Fusion system. The Aptima SARS-CoV-2 assay is [...] with clinical observations, patient history, and epidemiological information.Performed By: #### [id number] #### [facility] [address] [place] [address], [facility] CENTERAPTTon [id number] Coag (Bld) [Time]32.3 sNormal 25.0-35.0[address] HospitalComment on above:Result Comment: ALL RESULTS MUST BE INTERPRETED WITH RESPECT TO BLOOD DRAWING ARTIFACT OR DILUTION ERROR OF ANTICOAGULANT AT THE TIME OF SAMPLING. THE APTT SHOULD NOT BE USED TO MONITOR UNFRACTIONATED HEPARIN THERAPY, THIS LABORATORY NO LONGER HAS AN ESTABLISHED THERAPEUTIC RANGE BASED ON THE APTT. IT IS RECOMMENDED THAT THE UFH - HEPARIN ASSAY (ANTI-XA ACTIVITY) BE USED FOR THIS PURPOSE.Performed By: #### [id number] #### [facility] [address] [place] [address], [facility] CENTERBNP (B-TYPE NATRIURETIC PEPTIDE)on 85-83-9928Qkuznvtzfmw peptide B (Bld) [Mass/Vol]181 pg/mLHigh0-100The [address] HospitalComment on above:Order Comment: fax to [phone] ([facility] EP lab)Result Comment: Given the appropriate clinical setting a BNP result of >100 pg/mL indicates congestive heart failure.Performed By: #### [id number] #### [facility] [address] [place] [address], [facility] CENTERCB W/DIFFon 05-16-8213USL BASOPHILS0.1 10*3/uLNormal 0.0-0.2[address] HospitalComment on above:Performed By: #### [id number] #### [facility] [address] [place] [address], USAABS IMM GRANS0.1 10*3/uLNormal0.0-0.2[address] HospitalComment on above:Performed By: #### [id number] #### [facility] [address] [place] [address], USAABS NEUTROPHILS6.6 10*3/uLNormal1.6-7.6[address] HospitalComment on above:Performed By: #### [id number] #### [facility] [address] [place] [address], USABasophils/100 WBC (Bld)0.7 %Normal0.0-1.0[address] HospitalComment on above:Performed By: #### [id number] #### [facility] [address] [place] [address], USAEosinophils (Bld) [#/Vol]0.1 10*3/uLNormal0.0-0.5The [address] HospitalComment on above:Performed By: #### [id number] #### [facility] [address] [place] [address], USAEosinophils/100 WBC (Bld)0.9 %Normal0.0-6.0[address] HospitalComment on above:Performed By: #### 13906 #### [facility] [address] [facility] [place] [address], USAErythrocyte distribution width (RBC) [Ratio]16.8 %High 11.5-15.0The [address] HospitalComment on above:Performed By: #### [id number] #### [facility] [address] [facility] [place] [address], USAHematocrit (Bld) [Volume fraction]37.9 %Xbnzno24.0-45.0[address] HospitalComment on above:Performed By: #### [id number] #### [facility] [address] [facility] [place] [address], USAHemoglobin (Bld) [Mass/Vol]12.2 g/eDAijjis61.0-15.0[address] HospitalComment on above:Performed By: #### [id number] #### [facility] [address] [facility] [place] [address], USAIMMATURE GRANS0.5 %Normal0.0-1.0[address] HospitalComment on above:Performed By: #### [id number] #### [facility] [address] [place] [address], [facility]ICAL CENTERLymphocytes (Bld) [#/Vol]2.3 10*3/uLNormal1.2-4.0[address] HospitalComment on above:Performed By: #### [id number] #### [facility] [address] [facility] [place] [address], [facility]ICAL CENTERLymphocytes/100 WBC (Bld)23.8 %Orpcui61.0-45.0[address] HospitalComment on above:Performed By: #### [id number] #### [facility] [address] [place] [address], [facility] (RBC) [Entitic mass]27.7 xmInotan73.0-33.0[address] HospitalComment on above:Performed By: #### [id number] #### [facility] [address] [facility] [place] [address], [facility] CENTERMCHC (RBC) [Mass/Vol]32.2 g/nUClhtol62.0-35.0[address] HospitalComment on above:Performed By: #### [id number] #### [facility] [address] [place] [address], [facility] CENTERMCV (RBC) [Entitic vol]85.9 nHLmwnmw87.0-98.0[address] HospitalComment on above:Performed By: #### 01091 #### [facility] [address] [place] [address], USAMonocytes (Bld) [#/Vol]0.7 10*3/uLNormal0.1-1.0[address] HospitalComment on above:Performed By: #### [id number] #### [facility] [address] [place] [address], USAMONOS7.5 %Normal5.0-12.0[address] HospitalComment on above:Performed By: #### 63682 #### [facility] [address] [place] [address], USANeutrophils/100 WBC (Bld)66.6 %Uzfeoa63.0-72.0[address] HospitalComment on above:Performed By: #### [id number] #### [facility] [address] [place] [address], USANucleated RBC/100 WBC (Bld) [Ratio]0 %Normal0-0[address] HospitalComment on above:Performed By: #### 61954 #### [facility] [address] [facility] [place] [address], USAPLAT QPF077 10*3/zWLiuvdx627-117Wtq [address] HospitalComment on above:Performed By: #### 97974 #### [facility] [address] [facility] [facility] [address], USARBC (Bld) [#/Vol]4.41 10*6/uLNormal3.80-5.00The [address] HospitalComment on above:Performed By: #### 92666 #### [facility] [address] [facility] [place] [address], USAWBC (Bld) [#/Vol]9.84 10*3/uLNormal4.00-10.60[address] HospitalComment on above:Performed By: #### 65519 #### [facility] [address] [facility] [place] [address], USACOMP METABOLIC PANELon 03-32-0402Wmkwctb [Mass/Vol]3.4 g/dL Low3.5-5.7The [address] HospitalComment on above:Performed By: #### [id number], 82741 #### [facility] [address] [place] [address], USAALKALINE JHIXUU34 IU/FCrgmwv53-674Xxg [address] HospitalComment on above:Performed By: #### 03735, 14120 #### [facility] [address] [place] [address], USAALT [Catalytic activity/Vol]11 U/LNormal7-52The [address] HospitalComment on above:Performed By: #### 55473, 51361 #### [facility] [address] [place] [address], USAAST [Catalytic activity/Vol]16 U/GJmcfcb82-17Ado [address] HospitalComment on above:Performed By: #### 13120, [id number] #### [facility] [address] [place] [address], USABilirubin [Mass/Vol]0.5 mg/dLNormal0.3-1.0[address] HospitalComment on above:Performed By: #### 46918, 05249 #### [facility] [address] [place] [address], USACalcium [Mass/Vol]9.1 mg/dLNormal8.6-10.3[address] HospitalComment on above:Performed By: #### 77440, 28187 #### [facility] [address] [place] [address], USAChloride [Moles/Vol]107 mmol/VKpfdun38-323Ryp [address] HospitalComment on above:Performed By: #### 22283, 02450 #### [facility] [address] [place] [address], USACO2 [Moles/Vol]24 mmol/ROurmwf00-11Uky [address] HospitalComment on above:Performed By: #### 90782, 75162 #### [facility] [address] [place] [address], USACreatinine [Mass/Vol]0.91 mg/dLNormal0.60-1.20[address] HospitalComment on above:Performed By: #### 22490, 39084 #### [facility] [address] [place] [address], USAGFR/1.73 sq M predicted among blacks MDRD (S/P/Bld) [Vol rate/Area]mL/min/{1.73_m2}Normal>60[facility] Comment on above:Result Comment: Calculation may not be valid for patients over 70 yearsPerformed By: #### 90712, 77266 #### [facility] [address] [place] [address], USAGFR/1.73 sq M predicted among non-blacks MDRD (S/P/Bld) [Vol rate/Area]59 ml/min/1.73sq mAbnormal>60[address] HospitalComment on above:Result Comment: Calculation may not be valid for patients over 70 yearsPerformed By: #### [id number], [id number] #### [facility] [address] [place] [address], USAGlucose [Mass/Vol]83 mg/cTSsakue04-325Jin [address] HospitalComment on above:Performed By: #### [id number], [id number] #### [facility] [address] [place] [address], USAPotassium [Moles/Vol]3.8 mmol/LNormal3.5-5.1The [address] HospitalComment on above:Performed By: #### [id number], [id number] #### [facility] [address] [place] [address], USAProtein [Mass/Vol]6.0 g/dLNormal6.0-8.3The [address] HospitalComment on above:Performed By: #### [id number], [id number] #### [facility] [address] [place] [address], USASodium [Moles/Vol]137 mmol/DRrxnaq019-518Oge [address] HospitalComment on above:Performed By: #### [id number], [id number] #### [facility] [address] [facility] [place] [address], USAUrea nitrogen [Mass/Vol]17 mg/dLNormal7-25The [address] HospitalComment on above:Performed By: #### 45502, [id number] #### [facility] [address] [facility] [place] [address], USAPORTABLE CHEST 1 VIEWon [id number] CHEST [address] [facility] Department of Radiology [address] [place] [address] [id number] Patient Name: LEYLA LAMBERT : 1940 Sex: F Age: Race: White Pt. Location: [facility] Patient Status: E Ordered Date: 04/12/2020 12:15:00 PM Completed Date: 04/12/2020 01:07 PM Requesting Provider: CELESTE PFEIFFER Attending Provider: CELESTE PFEIFFER Report Copy To: Signs & Symptoms: Chest Pain History: Comments: Evaluate for Cardiomegaly Exam: PORTABLE CHEST 1 VIEW PORTABLE CHEST 1 VIEW 04/12/2020 1:07 PM [...] change Electronically signed: Rojas Hughes. Transcribed by: [email or web address], User Resident: Electronically Signed by: ROJAS HUGHES @ 04/12/2020 01:[address] HospitalComment on above:Order Comment: Evaluate for CardiomegalyPROTHROMBIN TIMEon [id number] Coag (PPP) [Relative time]2.07 {INR}High0.91-1.16The [address] HospitalComment on above:Result Comment: ACCCP RECOMMENDED INR FOR WARFARIN THERAPY ------- CONDITION INR PROPHYLAXIS OF VENOUS THROMBOSIS 2-3 (HIGH-RISK SURGERY) TREATMENT OF VENOUS THROMBOSIS 2-3 TREATMENT OF PULMONARY EMBOLISM 2-3 PREVENTION OF SYSTEMIC EMBOLISM: 2-3 ACUTE MYOCARDIAL INFARCTION TISSUE HEART VALVES VALVULAR HEART DISEASE ATRIAL FIBRILLATION RECURRENT SYSTEMIC EMBOLISM MECHANICAL HEART VALVE 2.5-3.5 FROM: ORAL ANTICOAGULANTS. MECHANISM OF ACTION, CLINICAL EFFECTIVENESS, AND OPTIMAL THERAPEUTIC RANGE. CHEST 1995;108:231S-246S.Performed By: #### [id number] #### [facility] [address] [place] [address], USAPT Coag (PPP) [Time]23.6 sHigh12.3-14.8The [address] HospitalComment on above:Result Comment: ALL RESULTS MUST BE INTERPRETED WITH RESPECT TO BLOOD DRAWING ARTIFACT OR DILUTION ERROR OF ANTICOAGULANT AT THE TIME OF SAMPLING.Performed By: #### [id number] #### [facility] [address] [address], USATROPONIN-Ion [id number] I.cardiac [Mass/Vol]0.01 ng/mLNormal0.00-0.04The [address] HospitalComment on above: Order Comment: fax to [phone] ([facility] EP lab)Result Comment: REFERENCE RANGES: 0.00 - 0.04 ng/ml NORMAL 0.05 - 0.50 ng/ml INDETERMINATE > 0.50 ng/ml CONSISTENT WITH AN M.I.Performed By: #### [id number] #### [facility] [address] [facility] [place] [address], USATroponin I.cardiac [Mass/Vol]0.00 ng/mLNormal0.00-0.04The [address] HospitalComment on above:Result Comment: REFERENCE RANGES: 0.00 - 0.14 ng/ml NEGATIVE 0.15 - 0.25 ng/ml INDETERMINATE > 0.25 ng/ml INDICATIVE OF AN M.I.Performed By: #### [id number], [id number] #### [facility] [address] [facility] [place] [address], USABasic Metabolic Panel (BMP)on [id number] gap [Moles/Vol]8 mmol/LLow9 - 17 mmol/LMohiohealth o'bleness hospitaly Health- [place], KYBun/Cre Dljfa01AsflOwzzc Health- [place], KYCalcium [Mass/Vol]8.5 mg/dLLow8.6 - 10.4 mg/dLCleveland Clinic Mentor Hospital Health- [place], [place] Chloride [Moles/Vol]109 mmol/LHigh98 - 107 mmol/LMercy Health- [place], KYCO2 [Moles/Vol]21 mmol/L20 - 31 mmol/LMercy Health- [place], KYCreatinine [Mass/Vol]0.93 mg/dLHigh0.5 - 0.9 mg/dLUniversity [facility]als [facility]- [place], KYGFR >60>60 mL/min [facility]- [place], KYGFR Non- Lyddmfho66 mL/minLow>60[facility], [place] Glucose [Mass/Vol]96 mg/dL70 - 99 mg/dLKettering Health [place], AKInterpretation and review of laboratory resultsAbnormThe [facility] of [facility], KYPotassium [Moles/Vol]3.7 mmol/L3.7 - 5.3 mmol/LMZanesville City Hospital- [place], KYSodium [Moles/Vol]138 mmol/L135 - 144 mmol/LMZanesville City Hospital- [place], KYUrea nitrogen [Mass/Vol]23 mg/dL8 - 23 mg/dLKettering Health [place], AKCBC auto differentialon [id number] (Bld) [#/Vol]0.05 10*3/[facility], KYBasophils/100 WBC (Bld)1 %0 - 2 %[facility], [place] Differential TypeNOT REPORTEDKettering Health [place], KYEosinophils (Bld) [#/Vol]0.14 10*3/[facility], KYEosinophils/100 WBC (Bld)2 %1 - 4 %[facility], AKErythrocyte distribution width (RBC) [Ratio]16.9 %High11.8 - 14.4 %[facility], KYHematocrit (Bld) [Volume fraction]37.4 %36.3 - 47.1 %[facility], KYHemoglobin (Bld) [Mass/Vol]11.6 g/dLLow11.9 - 15.1 g/dLKettering Health [place], AKImmature granulocytes (Bld) [#/Vol]1 %Pgxv9WlleuKettering Health [place], KYImmature granulocytes (Bld) [#/Vol]0.10 10*3/[facility], AKInterpretation and review of laboratory resultsAbnormThe [facility] of [facility], KYLymphocytes (Bld) [#/Vol]2.40 10*3/[facility] [place], KYLymphocytes/100 WBC (Bld)31 %24 - 43 % [facility], KYMCH (RBC) [Entitic mass]27.6 pg25.2 - 33.5 pgKettering Health [place], KYMCHC (RBC) [Mass/Vol]31.0 g/dL28.4 - 34.8 g/dLKettering Health [place], JACIELMCV (RBC) [Entitic vol]89.0 fL82.6 - 102.9 fLKettering Health [place]burg, JACIELMonocytes (Bld) [#/Vol]0.71 10*3/uLKettering Health [place], KYMonocytes/100 WBC (Bld)9 %3 - 12 %[facility] MiamisburgJACIELPlatelet mean volume (Bld) [Entitic vol]9.6 fL8.1 - 13.5 fLKettering Health [place]burg, JACIELPlatelets (Bld) [#/Vol]NOT REPORTEDKettering Health [facility], JACIELPlatelets (Bld) [#/Vol]345 10*3/uLKettering Health [place], AKRBC (Bld) [#/Vol]4.20 10*6/uL3.95 - 5.11 m/[facility] morphology finding Nom (Bld)NOT REPORTEDK[facility]tering Health [place], HealthAll[facility]: Broadway Campusgmented neutrophils/100 WBC (Bld)56 %36 - 65 %[facility], JACIELSegs Absolute4.43[facility], JACIELWBC (Bld) [#/Vol]7.8 10*3/uLKettering Health [place], AKWBC (Bld) [#/Vol]0.0 10*3/uL0.0 per 100 WBCKettering Health [place], AKWBC MorphologyNOT REPORTEDKettering Health MiamisburgJACIELMagnesiumon [id number] [Mass/Vol]2.3 mg/dL1.6 - 2.6 mg/dLBurnham, KYMetabolic Panelon [id number]/1.73 sq M predicted among non-blacks MDRD (S/P/Bld) [Vol rate/Area][facility] AKComment on above:Stage 1: Some kidney damage normal GFR Stage 2: Mild kidney damage GFR 60-89 Stage 3: Moderate kidney damage GFR 30-59 Stage 4: Severe kidney damage GFR 15-29 Stage 5: Severe kidney damage GFR <15 ESRD - chronic treatment by dialysis or transplant Average GFR for 70 or more years old: 75 mL/min/1.73sq m Chronic Kidney Disease: <60 mL/min/1.73sq m Kidney failure: <15 mL/min/1.73sq m eGFR calculated using average adult body mass. Additional eGFR calculator available at: http://www.Formarum/multiple_crcl_2012.htm Protime-INRon [id number] Coag (PPP) [Relative time]2.0 {INR}[facility], KYComment on above: Non-therapeutic Range: INR = 0.9-1.2 Therapeutic Range: Moderate Anticoagulant Intensity: INR = 2.0-3.0 High Anticoagulant Intensity: INR = 2.5-3.5 Interpretation and review of laboratory resultsAbnoKettering Health – [facility], KYPT Coag (PPP) [Time]22.1 sHigHolzer Medical Center – [place], KYComment on above:NOTE: NEW REFERENCE RANGEBasic Metabolic Panel (BMP)on [id number] gap [Moles/Vol]8 mmol/LLow9 - 17 mmol/LMmer[facility] Health- [place], KYBun/Cre Ikynk51LmnsLuyek Health- [place], KYCalcium [Mass/Vol]8.9 mg/dL8.6 - 10.4 mg/dLTrinity Health System West Campus [place], KYChloride [Moles/Vol]111 mmol/LHigh98 - 107 mmol/LMmercy health [facility] Health- [place], KYCO2 [Moles/Vol]22 mmol/L20 - 31 mmol/LMmercy health [facility] Health- [place], KYCreatinine [Mass/Vol]0.87 mg/dL0.5 - 0.9 mg/dLKettering Health [place], KYGFR >60>60 mL/minUniversity Hospitals [facility]ar[facility]- [place], [place] GFR Non->60>60 mL/minTrinity Health System West Campus [place], KYGlucose [Mass/Vol]96 mg/dL70 - 99 mg/dLKettering Health [place], KYInterpretation and review of laboratory resultsAbTriHealth [facility], KYPotassium [Moles/Vol]4.1 mmol/L3.7 - 5.3 mmol/LMohiohealth o'bleness hospitaly Health- [place], KYSodium [Moles/Vol]141 mmol/L135 - 144 mmol/LMercy Health- [place], AKUrea nitrogen [Mass/Vol]20 mg/dL8 - 23 mg/dLKettering Health [place], [place] CBC auto differentialon [id number] (Bld) [#/Vol]0.04 10*3/[facility], KYBasophils/100 WBC (Bld)1 %0 - 2 %[facility], AKDifferential TypeNOT REPORTEDK[facility]tering Health [facility], KYEosinophils (Bld) [#/Vol]0.12 10*3/[facility], KYEosinophils/100 WBC (Bld)2 %1 - 4 %[place], KYErythrocyte distribution width (RBC) [Ratio]16.6 %High11.8 - 14.4 %[place], [place] Hematocrit (Bld) [Volume fraction]36.9 %36.3 - 47.1 %[place], [place] Hemoglobin (Bld) [Mass/Vol]11.7 g/dLLow11.9 - 15.1 g/dLKettering Health [place], [place] Immature granulocytes (Bld) [#/Vol]0.09 10*3/[facility], AKImmature granulocytes (Bld) [#/Vol]1 %Xfxt6AlegtBurnham, KYInterpretation and review of laboratory resultsAbnormThe [facility] of [facility], AKLymphocytes (Bld) [#/Vol]2.37 10*3/[facility], JACIELLymphocytes/100 WBC (Bld)29 %24 - 43 %[place], KYMCH (RBC) [Entitic mass]27.7 pg25.2 - 33.5 pgKettering Health [place], AKMCHC (RBC) [Mass/Vol]31.7 g/dL28.4 - 34.8 g/dLKettering Health [place], AKMCV (RBC) [Entitic vol]87.4 fL82.6 - 102.9 fLKettering Health [place]burg, AKMonocytes (Bld) [#/Vol]0.77 10*3/[facility], AKMonocytes/100 WBC (Bld)9 %3 - 12 %[facility]- [place], KYPlatelet mean volume (Bld) [Entitic vol]9.9 fL8.1 - 13.5 fLUniversity Hospitals Samaritan Medical Center- [place], KYPlatelets (Bld) [#/Vol]324 10*3/uLUniversity Hospitals Samaritan Medical Center- [place], KYPlatelets (Bld) [#/Vol] NOT REPORTEDUniversity Hospitals [facility]ar[facility]- [place], KYRBC (Bld) [#/Vol]4.22 10*6/uL3.95 - 5.11 m/uL [facility]- [place], KYRBC morphology finding Nom (Bld)NOT REPORTEDUniversity Hospitals [facility]- [place], KYSegmented neutrophils/100 WBC (Bld)58 %36 - 65 %[facility]- [place], KYSegs Absolute4.80[facility]- [place], KYWBC (Bld) [#/Vol]8.2 10*3/uLUniversity Hospitals Samaritan Medical Center- [place], [place] WBC (Bld) [#/Vol]0.0 10*3/uL0.0 per 100 WBCUniversity Hospitals Samaritan Medical Center- [place], KYWBC MorphologyNOT REPORTEDUniversity Hospitals [facility]- [place], KYEKG 12 Leadon 85-33-1764Sbefbp Khdd48PQSIwqpp Health- [place], KYP Cashmere-11degreesUniversity Hospitals Samaritan Medical Center- [place], KYP-R Qoyqcszn094 [facility]- [place], KYQ-T Gklztkie961 [facility]- [place], KYQRS Fkopmcni07 [facility]- [place], KYQTc Calculation (Brady)494 msMmercy health [facility] Health- [place], KYR Nrck25ufxykcc [facility]- [place], KYT Cashmere-11degreesUniversity Hospitals Samaritan [facility]- [place], KYVentricular Qqre48MJI [facility]- [place], KYAtrial-paced rhythm with prolonged AV conduction Nonspecific T wave abnormality Prolonged QT Abnormal ECG When compared with ECG of 04-APR-2020 23:36, (unconfirmed) No significant change was found Confirmed by TONI MOORE ([id number]) on 04/05/2020 10:08:08 PMTr[facility] [place], Carmen Peter Incoming Ekg Results From [facility] - 04/05/2020 10:08 PM EDT Atrial-paced rhythm with prolonged AV conduction Nonspecific T wave abnormality Prolonged QT Abnormal ECG When compared with ECG of 04-APR-2020 23:36, (unconfirmed) No significant change was found Confirmed by TONI MOORE ([id number]) on 04/05/2020 10:08:08 PM[facility]- [place], [place] Atrial Jfmj70OCWCeklf Health- [place], KYP Cashmere-7degreesMercy Health- [place], KYP-R Hgkitiwh247 msMercy Health- [place], KYQ-T Zswkmyzr588 msMercy Health- [place], KYQRS Dekzfcez85 msMercy Health- [place], KYQTc Calculation (Bazett)489 msMercy Health- [place], KYR Aybc7kvklhdsJsuut Health- [place], KYT Cashmere-10degreesMercy Health- [place], [place] Ventricular Srpp58WONCjehk Health- [place], KYEdi, Mhpn Incoming Ekg Results From [facility] [place] - 04/05/2020 9:50 PM EDT Atrial-paced rhythm with prolonged AV conduction Nonspecific T wave abnormality Prolonged QT Abnormal ECG When compared with ECG of 04-APR-2020 11:58, (unconfirmed) No significant change was found Confirmed by TONI MOORE ([id number]) on 04/05/2020 9:49:57 PMMer[facility]- [place], [place] Atrial-paced rhythm with prolonged AV conduction Nonspecific T wave abnormality Prolonged QT Abnormal ECG When compared with ECG of 04-APR-2020 11:58, (unconfirmed) No significant change was found Confirmed by TONI MOORE ([id number]) on 04/05/2020 9:49:57 PMMer[facility]- [place], KYAtrial Ddcb51QBZDgaby Health- [place], KYP Cashmere-17degreesMercy Health- [place], KYP-R Sxotwpuj639 msMercy Health- [place], KYQ-T Bwcklrun242 msMercy Health- [place], KYQRS Dkmuywtc78 msMercy Health- [place], KYQTc Calculation (Bazett)497 msMercy Health- [place], KYR Qutg62chfeqrqLxjuo Health- [place], KYT Aavg0wkevckyBodnt Health- [place], KYVentricular Ddgw91RGXQuolm Health- [place], [place] Atrial-paced rhythm with prolonged AV conduction Prolonged QT Abnormal ECG When compared with ECG of 03-APR-2020 22:51, (unconfirmed) No significant change was found Confirmed by TONI MOORE ([id number])on 04/05/2020 9:48:08 PMUniversity [facility]- [place], Carmen Peter Incoming Ekg Results From [facility] - 04/05/2020 9:48 PM EDT Atrial- paced rhythm with prolonged AV conduction Prolonged QT Abnormal ECG When compared with ECG of 03-APR-2020 22:51, (unconfirmed) No significant change was found Confirmed by TONI MOORE ([id number]) on 04/05/2020 9:48:08 PMC[facility]- [place], [place] Atrial Chty29MQZIyisg Health- [place], KYP Txri08euqbqnvBkose Health- [place], KYP-R Fnhxabei002 [facility]- [place], KYQ-T Obpjrzug974 [facility]- [place], KYQRS Ohnxtovs94 [facility]- [place], KYQTc Calculation (Bazett)467 msMmercy [facility] Health- [place], KYR Jyfd05fspqkujPawcw Health- [place], KYT Qive22fwrxfagIrbdn Health- [place], [place] Ventricular Bsfc75ODJJukfg Health- [place], KYAtrial-paced rhythm with prolonged AV conduction Abnormal ECG When compared with ECG of 12-SFU-450706:21, (unconfirmed) No significant change was found Confirmed by TONI MOORE ([id number]) on 04/05/20209:43:48 PMTr[facility] [place], Carmen Peter Incoming Ekg Results From [email or web address] - 04/05/2020 9:44 PM EDT Atrial-paced rhythm with prolonged AV conduction Abnormal ECG When compared with ECG of 03-APR-2020 12:21, (unconfirmed) No significant change was found Confirmed by TONI MOORE ([id number]) on 04/05/2020 9:43:48 PMK[facility]tering [facility] [place], [place] Magnesiumon 12-34-7625Yjqvnvbsk [Mass/Vol]2.3 mg/dL1.6 - 2.6 mg/dLKettering Health [facility], KYMetabolic Panelon 47-74-3266ZKR/1.73 sq M predicted among non-blacks MDRD (S/P/Bld) [Vol rate/Area][facility], KYComment on above:Stage 1: Some kidney damage normal GFR Stage 2: Mild kidney damage GFR 60-89 Stage 3: Moderate kidney damage GFR 30-59 Stage 4: Severe kidney damage GFR 15-29 Stage 5: Severe kidney damage GFR <15 ESRD - chronic treatment by dialysis or transplant Average GFR for 70 or more years old: 75 mL/min/1.73sq m Chronic Kidney Disease: <60 mL/min/1.73sq m Kidney failure: <15 mL/min/1.73sq m eGFR calculated using average adult body mass. Additional eGFR calculator available at: http://www.Formarum/multiple_crcl_2012.htm Protime-INRon 99-34-0965JOK Coag (PPP) [Relative time]2.1 {INR}[facility] Dev4X [place], AKComment on above: Non-therapeutic Range: INR = 0.9-1.2 Therapeutic Range: Moderate Anticoagulant Intensity: INR = 2.0-3.0 High Anticoagulant Intensity: INR = 2.5-3.5 Interpretation and review of laboratory resultsAbnormalKettering Health [place], AKPT Coag (PPP) [Time]23.4 sHigHolzer Medical Center – [place], AKComment on above:NOTE: NEW REFERENCE RANGETroponinon [id number] I.cardiac [Mass/Vol]NOT REPORTED [facility] Dev4X [place], AKTroponin T.cardiac [Mass/Vol]NOT REPORTED<0.03 ng/mLCleveland Clinic Mentor Hospital Outcome ReferralsSULLIVAN [facility], [facility] Centeroponin, High Umjlwhjxntl41 ng/L0 - 14 ng/[facility], [place] Comment on above: High Sensitivity Troponin values cannot be compared with other Troponin methodologies. Patients with high levels of Biotin oral intake (i.e >5mg/day) may have falsely decreased Troponin levels. Samples collected within 8 hours of biotin intake may require additional information for diagnosis. Basic Metabolic Panel (BMP)on 58-56-7453Iqxiu gap [Moles/Vol]6 mmol/LLow9 - 17 mmol/SaqinaSULLIVAN COUNTY MEMORIAL [facility]OSPITAL, KYBun/Cre Agncl20AordfKettering Health [place], KYCalcium [Mass/Vol] 8.9 mg/dL8.6 - 10.4 mg/dLKettering Health [place], KYChloride [Moles/Vol]107 mmol/L98 - 107 mmol/[facility] HospitalEduquia [facility], KYCO2 [Moles/Vol]22 mmol/L20 - 31 mmol/LMercy Health- [place], KYCreatinine [Mass/Vol]0.75 mg/dL0.5 - 0.9 mg/dLUniversity Hospitals [facility]- [place], [place] GFR >60>60 mL/minUniversity Hospitals Samar[facility]- [place], KYGFR Non->60 >60 mL/minC[facility] Clinic [facility] Health- [place], KYGlucose [Mass/Vol]93 mg/dL70 - 99 mg/dLUniversity Hospitals [facility]ar[facility]- [place], KYInterpretation and review of laboratory resultsAbnormalUniversity Hospitals [facility]- [place], KYPotassium [Moles/Vol]4.0 mmol/L3.7 - 5.3 mmol/LMmer[facility] Health- [place], KYSodium [Moles/Vol]135 mmol/L135 - 144 mmol/[facility]- [place], KYUrea nitrogen [Mass/Vol]14 mg/dL8 - 23 mg/dLUniversity Hospitals Samar[facility]- [place], KYCBC auto differentialon [id number] (Bld) [#/Vol]0.03 10*3/[facility] [place], KYBasophils/100 WBC (Bld)0 %0 - 2 %[facility], KYDifferential TypeNOT REPORTEDKettering Health [facility], KYEosinophils (Bld) [#/Vol]0.14 10*3/[facility], [place] Eosinophils/100 WBC (Bld)2 %1 - 4 %[facility]- [place], KYErythrocyte distribution width (RBC) [Ratio]16.4 %High11.8 - 14.4 %[facility], KYHematocrit (Bld) [Volume fraction]38.9 %36.3 - 47.1 %[facility], KYHemoglobin (Bld) [Mass/Vol]12.0 g/dL11.9 - 15.1 g/dLTrinity Health System West Campus [place], KYImmature granulocytes (Bld) [#/Vol]1 %Hwra4BksvbUniversity Hospitals Samaritan Medical Center- [place], KYImmature granulocytes (Bld) [#/Vol]0.09 10*3/uLUniversity Hospitals Samaritan Medical Center- [place], KYInterpretation and review of laboratory results AbnormalKettering Health [facility], KYLymphocytes (Bld) [#/Vol]2.15 10*3/[facility], JACIELLymphocytes/100 WBC (Bld)26 %24 - 43 %[facility], JACIELMCH (RBC) [Entitic mass]27.6 pg25.2 - 33.5 pgKettering Health Miamisburg, JACIELMCHC (RBC) [Mass/Vol]30.8 g/dL28.4 - 34.8 g/dLKettering Health [place], JACIELMCV (RBC) [Entitic vol]89.4 fL82.6 - 102.9 fLKettering Health Miamisburg, JACIELMonocytes (Bld) [#/Vol]0.85 10*3/[facility], JACIELMonocytes/100 WBC (Bld)10 %3 - 12 %[facility] MiamisburgJACIELPlatelet mean volume (Bld) [Entitic vol]9.8 fL8.1 - 13.5 fLKettering Health Miamisburg, JACIELPlatelets (Bld) [#/Vol]NOT REPORTEDKettering Health [place], JACIELPlatelets (Bld) [#/Vol]342 10*3/uLKettering Health [place], JACIELRBC (Bld) [#/Vol]4.35 10*6/uL3.95 - 5.11 m/UC Medical CenterJACIEL RBC morphology finding Nom (Bld)NOT REPORTEDKettering Health [place], JACIELSegmented neutrophils/100 WBC (Bld)61 %36 - 65 %[facility], JACIELSegs Absolute5.00[facility], JACIELWBC (Bld) [#/Vol]8.3 10*3/[facility], JACIELWBC (Bld) [#/Vol] 0.0 10*3/uL0.0 per 100 WBCKettering Health [place]burg, JACIELWBC MorphologyNOT REPORTEDKettering Health MiamisburgJACIELMetabolic Panelon [id number]/1.73 sq M predicted among non- blacks MDRD (S/P/Bld) [Vol rate/Area][place], KYComment on above:Stage 1: Some kidney damage normal GFR Stage 2: Mild kidney damage GFR 60-89 Stage 3: Moderate kidney damage GFR 30-59 Stage 4: Severe kidney damage GFR 15-29 Stage 5: Severe kidney damage GFR <15 ESRD - chronic treatment by dialysis or transplant Average GFR for 70 or more years old: 75 mL/min/1.73sq m Chronic Kidney Disease: <60 mL/min/1.73sq m Kidney failure: <15 mL/min/1.73sq m eGFR calculated using average adult body mass. Additional eGFR calculator available at: http://www.Formarum/multiple_crcl_2012.htm Protime-INRon 61-72-2823LUI Coag (PPP) [Relative time]1.8 {INR}[facility], KYComment on above: Non-therapeutic Range: INR = 0.9-1.2 Therapeutic Range: Moderate Anticoagulant Intensity: INR = 2.0-3.0 High Anticoagulant Intensity: INR = 2.5-3.5 Interpretation and review of laboratory resultsAbnormThe University of [facility], KYPT Coag (PPP) [Time]20.6 sHigHolzer Medical Center – [place], KYComment on above:NOTE: NEW REFERENCE RANGEBasic Metabolic Panel (BMP)on [id number] gap [Moles/Vol]11 mmol/L9 - 17 mmol/LMohiohealth o'bleness hospitaly Health- [place], KYBun/Cre Hmhms80LqhtCambz Health- [place], [place] Calcium [Mass/Vol]8.6 mg/dL8.6 - 10.4 mg/dLUniversity Hospitals Samar[facility]- [place], KYChloride [Moles/Vol]106 mmol/L98 - 107 mmol/LMohiohealth o'bleness hospitaly Health- [place], KYCO2 [Moles/Vol]19 mmol/L Low20 - 31 mmol/LMohiohealth o'bleness hospitaly Health- [place], KYCreatinine [Mass/Vol]0.88 mg/dL0.5 - 0.9 mg/dLUniversity Hospitals [facility]- [place], KYGFR >60>60 mL/minUniversity Hospitals Samaritan [facility]- [place], [place] GFR Non->60>60 mL/minUniversity Hospitals Samaritan [facility] Center- [place], KYGlucose [Mass/Vol]120 mg/nEEtjg97 - 99 mg/dLKettering Health [place], KYInterpretation and review of laboratory resultsAbnormThe [facility] of [facility], KYPotassium [Moles/Vol]3.5 mmol/LLow 3.7 - 5.3 mmol/LMercy Health- [place], KYSodium [Moles/Vol]136 mmol/L135 - 144 mmol/L [facility], AKUrea nitrogen [Mass/Vol]20 mg/dL8 - 23 mg/dLKettering Health [place], AKCBC auto differentialon [id number] (Bld) [#/Vol]0.03 10*3/[facility], KYBasophils/100 WBC (Bld)0 %0 - 2 %[facility], AKDifferential TypeNOT REPORTEDKettering Health [place], KYEosinophils (Bld) [#/Vol]0.09 10*3/[facility], JACIELEosinophils/100 WBC (Bld)1 %1 - 4 %[facility], AKErythrocyte distribution width (RBC) [Ratio]16.7 %High11.8 - 14.4 %[facility], [place] Hematocrit (Bld) [Volume fraction]36.8 %36.3 - 47.1 %[facility], [place] Hemoglobin (Bld) [Mass/Vol]11.3 g/dLLow11.9 - 15.1 g/dLKettering Health [place], [place] Immature granulocytes (Bld) [#/Vol]1 %[id number] [place] [address], AKImmature granulocytes (Bld) [#/Vol]0.13 10*3/[facility], AKInterpretation and review of laboratory resultsAbnormalKettering Health [place], AKLymphocytes (Bld) [#/Vol]1.86 10*3/[facility], KYLymphocytes/100 WBC (Bld)21 %Low24 - 43 % [facility], AKMCH (RBC) [Entitic mass]27.4 pg25.2 - 33.5 pg[facility], AKMCHC (RBC) [Mass/Vol]30.7 g/dL28.4 - 34.8 g/dLKettering Health [place], AKMCV (RBC) [Entitic vol]89.1 fL82.6 - 102.9 fLKettering Health [place]burg, AKMonocytes (Bld) [#/Vol]1.01 10*3/uLMercy Health- [place], KYMonocytes/100 WBC (Bld)11 %3 - 12 %[facility]- [place], KYPlatelet mean volume (Bld) [Entitic vol]10.0 fL8.1 - 13.5 fLMer Health- [place], KYPlatelets (Bld) [#/Vol]NOT REPORTEDCleveland Clinic [facility]- [place], KYPlatelets (Bld) [#/Vol]301 10*3/uLMercy Health- [place], KYRBC (Bld) [#/Vol]4.13 10*6/uL3.95 - 5.11 m/uLCleveland Clinic Mentor Hospital [facility]- [place], KYRBC morphology finding Nom (Bld)NOT REPORTEDCleveland Clinic [facility]- [place], KYSegmented neutrophils/100 WBC (Bld)66 %High36 - 65 %[facility]- [place], KYSegs Absolute5.90[facility]- [place], KYWBC (Bld) [#/Vol]0.0 10*3/uL0.0 per 100 WBCCleveland Clinic [facility]or [facility]- [place], KYWBC (Bld) [#/Vol]9.0 10*3/uLCleveland Clinic Ment[facility]- [place], KYWBC MorphologyNOT REPORTEDC[facility]- [place], KYEKG 12 Leadon 53-00-6762Ovqvuj Rate89 BPMMercy Health- [place], KYP Lqgp16wyyylkvBsnkk Health- [place], KYP-R Fvbxvtiv962 ms [facility]- [place], KYQ-T Thvssvhk668 msMercy Health- [place], KYQRS Frfsudzu09 msMohiohealth o'bleness hospitaly Health- [place], KYQTc Calculation (Brady)472 msMercy Health- [place], KYR Lqpv6hfqxidu [facility]- [place], KYT Vwoc3ihcfpaiHpulc Health- [place], KYVentricular Zspa42XKNWdxxw Health- [place], KYEdi, Mhpn Incoming Ekg Results From [facility] [place] - 04/03/2020 10:51 PM EDT Atrial-paced rhythm with prolonged AV conduction Abnormal ECG When compared with ECG of 03-APR-2020 09:00, No significant change was found Confirmed by TONI MOORE ([id number]) on 04/03/2020 10:51:50 PMC[facility] Clinic [facility]- [place], [place] Atrial-paced rhythm with prolonged AV conduction Abnormal ECG When compared with ECG of 46-TIN-493502:00, No significant change was found Confirmed by TONI MOORE ([id number]) on 04/03/2020 10:51:50 PMK[facility], KYAtrial Hvio08RLPCcweeSelect Medical Specialty [facility], KYP Cashmere-13degreesTrinity Health System [facility] [place], KYP-R Jrgguxrj011 [facility], KYQ-T Ouexrrao749 [facility], KYQRS Pcwysmdc93 [facility], KYQTc Calculation (Brady)445 msMSelect Medical Specialty Hospital - [facility], KYR Lzfr4fxtbfss [facility], KYT Cashmere-28degrProMedica Toledo Hospital, KYVentricular Vgpf42WYX [facility], KYAtrial-paced rhythm with prolonged AV conduction Abnormal ECG When compared with ECG of 20-KKM-113721:17, Electronic atrial pacemaker has replaced Electronic ventricular pacemaker Confirmed by TONI MOORE ([id number]) on 04/03/2020 11:14:51 [facility], [place] Peterpn Incoming Ekg Results From [facility] [place] - 04/03/2020 11:15 AM EDT Atrial-paced rhythm with prolonged AV conduction Abnormal ECG When compared with ECG of 29-NOV-2018 14:17, Electronic atrial pacemaker has replaced Electronic ventricular pacemaker Confirmed by TONI MOORE ([id number]) on 04/03/2020 11:14:51 [facility], [place] Metabolic Panelon 21-94-8114SWV/1.73 sq M predicted among non-blacks MDRD (S/P/Bld) [Vol rate/Area][facility], AKComment on above:Stage 1: Some kidney damage normal GFR Stage 2: Mild kidney damage GFR 60-89 Stage 3: Moderate kidney damage GFR 30-59 Stage 4: Severe kidney damage GFR 15-29 Stage 5: Severe kidney damage GFR <15 ESRD - chronic treatment by dialysis or transplant Average GFR for 70 or more years old: 75 mL/min/1.73sq m Chronic Kidney Disease: <60 mL/min/1.73sq m Kidney failure: <15 mL/min/1.73sq m eGFR calculated using average adult body mass. Additional eGFR calculator available at: http://www.Sr.Pago.com/multiple_crcl_2012.htm Protime-INRon 19-08-6039ZHD Coag (PPP) [Relative time]1.6 {INR}[facility]burgJACIELLafayette [facility] Health Center on above: Non-therapeutic Range: INR = 0.9-1.2 Therapeutic Range: Moderate Anticoagulant Intensity: INR = 2.0-3.0 High Anticoagulant Intensity: INR = 2.5-3.5 Interpretation and review of laboratory resultsAbTriHealth Bethesda Butler HospitalJACIELPT Coag (PPP) [Time]18.7 [facility] CenterJACIELLafayette Regional [facility] Center on above:NOTE: NEW REFERENCE RANGEXR KNEE GENERAL 4V AP BOTH/PA BOTH/LAT/MERC LTon 03-29-2020 [facility] SystemCardiovascular Lab Reporton [id number] Lab Report [facility] Patient Name: Petra Richard, Pse&G [facility] Jacob MR #: [id number] Department of Physician: Noah Robledo M.D. Medicine Service Date: 03/15/2020 Division of Birthdate: 1940 Cardiology Room #: Adult Cardiovascular Services [place] [address] Cardiovascular Laboratory Report PROCEDURE: Permanent pacemaker replacement. [...] It was removed and connected to a BiotroniDirectr Edora dual-chamber pacing system. Because the size [...] 3. Conscious sedation. Electronically Signed by: Noah Robledo M.D. 03/17/2020 06:06 P Noah Robledo M.D. Date Dict: 03/15/2020/01:51 P/Noah Robledo M.D. Date Trans: 03/15/2020 02:59 P/kina DN_JN:[id number] cc: Epi Andrews M.D. [address], [address] [facility] [address]LqkecoNbvMcKitrick Hospital*MRSA/MSSA DNA NASALon 03-12-2020*MRSA/MSSA DNA NASALClinical Report: (D) Specimen: NASAL SWAB Collected: 03/12/2020 15:29 Status: Final Last Updated: 03/12/2020 21:00 (1) fax to [phone] ([facility] EP lab) MSSA DNA (Final) Negative MRSA DNA (Final) NegativeNormalThe Wilson Street HospitalComment on above:Order Comment: fax to [phone] ([facility] EP lab)Performed By: #### [id number] #### [facility] [address] [place] [address], [facility]*SARS-CoV-2 COVID-19on [id number]-COVID-19Not Detected NormalNot DetectedThe Wilson Street HospitalComment on above:Order Comment: The Aptima SARS-CoV-2 assay is a nucleic acid amplification test intended for the qualitative detection of RNA from SARS-CoV-2 isolated and purified from nasopharyngeal (MANAGER BEHAVIOR), nasal and oropharyngeal (OP) swab specimens from patients with signs and symptoms of infection who are suspected of COVID-19. Results are for the identification of SARS-CoV-2 RNA. The SARS-CoV-2 RNA is generally detectable in nasopharyngeal and oropharyngeal swabs during the acute phase of infection. The Aptima SARS-CoV-2 Assay on the [employer] and [employer] Fusion system is intended for use by laboratory personnel specifically instructed and trained in the operation of the Magnolia and Magnolia Fusion system. The Aptima SARS-CoV-2 assay is [...] with clinical observations, patient history, and epidemiological information.Performed By: #### [id number] #### [facility] [address] [place] [address], [facility]ICAL CENTERBASIC METABOLIC PANELon [id number] [Mass/Vol]8.8 mg/dLNormal8.6-10.3The [address] HospitalComment on above:Order Comment: fax to [phone] ([facility] EP lab)Performed By: #### [id number] #### [facility] [address] [place] [address], USAChloride [Moles/Vol]106 mmol/VHwtadi01-784Kqg [address] HospitalComment on above:Order Comment: fax to [phone] ([facility] EP lab)Performed By: #### [id number] #### [facility] [address] [place] [address], USACO2 [Moles/Vol]25 mmol/BWjtkpq85-64Bns [address] HospitalComment on above:Order Comment: fax to [phone] ([facility] EP lab) Performed By: #### [id number] #### [facility] [address] [place] [address], USACreatinine [Mass/Vol]0.95 mg/dLNormal0.60-1.20The [address] HospitalComment on above:Order Comment: fax to [phone] ([facility] EP lab)Performed By: #### [id number] #### [facility] [address] [place] [address], USAGFR/1.73 sq M predicted among blacks MDRD (S/P/Bld) [Vol rate/Area]mL/min/{1.73_m2}Normal>60The [facility] Comment on above:Order Comment: fax to [phone] ([facility])Result Comment: Calculation may not be valid for patients over 70 yearsPerformed By: #### [id number] #### [facility] [address] [place] [address], USAGFR/1.73 sq M predicted among non-blacks MDRD (S/P/Bld) [Vol rate/Area]56 ml/min/1.73sq mAbnormal>60[address] HospitalComment on above:Order Comment: fax to [phone] ([facility])Result Comment: Calculation may not be valid for patients over 70 yearsPerformed By: #### [id number] #### [facility] [address] [place] [address], USAGlucose [Mass/Vol]87 mg/yRRkjfnb24-633Tlx [address] HospitalComment on above:Order Comment: fax to [phone] ([facility] EP [facility])Performed By: #### [id number] #### [facility] [address] [place] [address], USAPotassium [Moles/Vol]3.8 mmol/LNormal3.5-5.1The [address] HospitalComment on above:Order Comment: fax to [phone] ([facility])Performed By: #### [id number] #### [facility] [address] [place] [address], USASodium [Moles/Vol]137 mmol/QPsieww550-511Vpm [address] HospitalComment on above:Order Comment: fax to [phone] ([facility])Performed By: #### [id number] #### [facility] [address] [place] [address], USAUrea nitrogen [Mass/Vol]17 mg/dLNormal7-25The [address] HospitalComment on above:Order Comment: fax to [phone] ([facility])Performed By: #### [id number] #### [facility] [address] [place] [address], USACBC COMPLETE BLOOD COUNTon 77-15-2318Wcgergjfzgc distribution width (RBC) [Ratio]16.3 %High11.5-15.0The [address] HospitalComment on above:Order Comment: fax to [phone] ([facility]) Performed By: #### [id number] #### [facility] [address] [place] [address], USAHematocrit (Bld) [Volume fraction]36.0 %Sytjyj57.0-45.0[address] HospitalComment on above:Order Comment: fax to [phone] ([facility])Performed By: #### [id number] #### [facility] [address] [place] [address], [facility] MEDICAL CENTERHemoglobin (Bld) [Mass/Vol]11.4 g/dLLow12.0-15.0[address] HospitalComment on above:Order Comment: fax to [phone] ([facility])Performed By: #### [id number] #### [facility] [address] [place] [address], [facility]H (RBC) [Entitic mass]27.0 tfUqhseq24.0-33.0[address] HospitalComment on above:Order Comment: fax to [phone] ([facility])Performed By: #### [id number] #### [facility] [address] [place] [address], [facility] MEDICAL CENTERMCHC (RBC) [Mass/Vol]31.7 g/dLLow32.0-35.0[address] HospitalComment on above:Order Comment: fax to [phone] ([facility])Performed By: #### [id number] #### [facility] [address] [place] [address], [facility] (RBC) [Entitic vol]85.3 uMZpexxp65.0-98.[address] HospitalComment on above:Order Comment: fax to [phone] ([facility])Performed By: #### [id number] #### [facility] [address] [place] [address], USANucleated RBC/100 WBC (Bld) [Ratio]0 %Normal0-0The [address] HospitalComment on above:Order Comment: fax to [phone] ([facility])Performed By: #### [id number] #### [facility] [address] [place] [address], USAPLAT YDH075 10*3/tSGwklhh152-616Xqg [address] HospitalComment on above:Order Comment: fax to [phone] ([facility]) Performed By: #### [id number] #### [facility] [address] [place] [address], USARBC (Bld) [#/Vol]4.22 10*6/uLNormal3.80-5.00[address] HospitalComment on above:Order Comment: fax to [phone] ([facility])Performed By: #### [id number] #### [facility] [address] [place] [address], USAWBC (Bld) [#/Vol]7.06 10*3/uLNormal4.00-10.60[address] HospitalComment on above:Order Comment: fax to [phone] ([facility])Performed By: #### [id number] #### [facility] [address] [place] [address], USAProtime-INRon 47-59-4119PZH Coag (PPP) [Relative time]2.4 {INR}[facility], KYProtime-INRon 28-14-7693NCJ Coag (PPP) [Relative time] 3.6 {INR}[facility] [place], KYProtime-INRon 45-45-3569OHL Coag (PPP) [Relative time]2.2 {INR}[facility] [place], KYProtime-INRon 32-70-4511WAI Coag (PPP) [Relative time]1.9 {INR}[facility] [place], KYProtime-INRon 00-72-7823UTF Coag (PPP) [Relative time]1.9 {INR}[facility] [place], KYProtime-INRon 32-41-0342FAT Coag (PPP) [Relative time]2.2 {INR}[facility] [place], KYProtime-INRon 04-26-2019 INR Coag (PPP) [Relative time]1.6 {INR}[facility], JACIELProtime-INRon 78-84-9256IGV Coag (PPP) [Relative time]1.7 {INR}[facility] KYCBC with Diffon 68-69-8848Dfw. Basophil0.00 k/uLNormal0.0-0.2MMetroHealth [facility] Comment on above:Result Comment: Performed at [facility] [address] [place] [address] Performed By: #### PT ####[facility] [place] [phone].Neutrophil (Seg)5.00 k/uLNormal2.5-7.0[facility] HospitalComment on above:Performed By: #### PT ####[place] [address] [place] [address] Auto Diff PerformedYESNormalMemorial Health System Marietta Memorial HospitalComment on above:Performed By: #### PT ####[facility] [place] [address] Basophils/100 WBC Auto (Bld)0 %[facility] Comment on above:Performed By: #### PT ####[facility] [place] [address] Rfmjcryimie9.00 10*3/uLNormal0.0-0.4[facility] HospitalComment on above:Performed By: #### PT ####[facility] [place] [address] Eosinophils/100 leukocytes0 %NormalMemorial Health System Marietta Memorial HospitalComment on above:Performed By: #### PT ####[place] [address] [facility] [address] [place] [address] Erythrocyte distribution width Auto Ratio (RBC)17.8 %High12.1-15.2[facility] HospitalComment on above:Performed By: #### PT ####[facility] [phone] Erythrocytes (RBC)4.03 10*6/uLNormal 4.0-5.2[facility] HospitalComment on above:Performed By: #### PT ####[facility] [phone] Hematocrit (HCT) 31.4 %Vig34-27Vxhhr [facility]ard HospitalComment on above:Performed By: #### PT ####[facility] [phone] Hemoglobin mass conc (Bld)10.1 g/dLLow12.0-16.0[facility] HospitalComment on above:Performed By: #### PT ####[place] [address] [phone] Fflrwroipnc8.90 10*3/uLLow1.1-2.7[facility] Comment on above:Performed By: #### PT ####[facility] [address] Lymphocytes/100 vkduhaziiq92 %NormalMemorial Health System Marietta Memorial HospitalComment on above:Performed By: #### PT ####[place] [address] [address] CNV21.1 xnXxg76-39FovzxSt. Catherine of Siena Medical CenterComment on above:Performed By: #### PT ####[facility] [place] [address] MCHC mass conc (RBC)32.2 g/rEXjxxtl05-81EzwgfMemorial Health System Marietta Memorial HospitalComment on above:Performed By: #### PT ####[facility] [place] [address] MCV 77.9 wUPoe62-855KsskzMemorial Health System Marietta Memorial HospitalComment on above:Performed By: #### PT ####[facility] [place] [address] Monocytes0.20 10*3/uLNormal0.0-1.0[facility] HospitalComment on above: Performed By: #### PT ####[facility] [place] [address] Monocytes/100 leukocytes3 %NormalMemorial Health System Marietta Memorial HospitalComment on above:Performed By: #### PT ####[place] [address] [place] [address] Neutrophil (Seg)82 %NormalMemorial Health System Marietta Memorial HospitalComment on above:Performed By: #### PT ####[place] [address] [place] [address] Vvcnnoqmn536 10*3/iCEltxxd763-574 [facility] HospitalComment on above:Performed By: #### PT ####[facility] [place] [address] WBC (Leukocytes)6.1 10*3/uLNormal3.5-11.0[facility] HospitalComment on above:Performed By: #### PT ####[place] [address] [place] [address] Erythrocyte morphologyNOT REPORTEDNormalMemorial Health System Marietta Memorial HospitalComment on above: Performed By: #### PT ####[facility] [place] [address] Platelet mean volume (PMV)NOT REPORTEDNormal6.0-12.0[facility] HospitalComment on above:Performed By: #### PT ####[facility] [place] [address] PlateletsNOT REPORTED NormalMemorial Health System Marietta Memorial HospitalComment on above:Performed By: #### PT ####[facility] [facility] [place] [address] WBC Morphology NOT REPORTEDNormalMemorial Health System Marietta Memorial HospitalComment on above:Performed By: #### PT ####[facility] [facility] [place] [phone] 89-46-6708HUR Coag RelTime (PPP)1.7 {INR}NormalMemorial Health System Marietta Memorial HospitalComment on above:Result Comment: * THERAPY INDICATIONS * REFERENCE RANGESPts not on anti- coagulants 1.0 - 1.5 INRLowrisk pts on anti-coagulants 2.0 - 3.0 INRHigh risk pts on anti-coagulants 2.5 - 3.5 INRPrevention of atrial thrombo-embolism 3.0 - 4.5 INRPerformed at [facility] [address] [facility], [place] [address] Performed By: #### PT ####[facility] [facility] [place] [address] Prothrombin time (PT) Coag time (PPP)17.3 sHigh9.0-11.6Mer[facility] Rehabilitation Centerment on above:Performed By: #### PT ####[place] [address] [facility] [place] [address] XR CHEST STANDARD TWO VWon 90-92-3025YH CHEST STANDARD TWO VWHISTORY: 76-year-old female, shortness of breath, pain five days. Prior breast carcinoma, bilateral mastectomy.TECHNIQUE: Two views chest.COMPARISON: 03/05/2017.FINDINGS: Mild cardiomegaly slightly increased in size. Small barely perceptible pleural effusions, left greater than right are new.No pulmonary edema. The pacemaker and leads are unchanged.IMPRESSION: Slight increase in size of the heartwith new tiny pleural effusions compared to 03/05/2017.Interpreted by:BURKE Armstrong Jr.igned by:Jono Villa Jr., MD03/12/17Final resultNormal [facility] HospitalCBCone Health [facility] 16-20-9126Dbozijcxzxy distribution width Auto Ratio (RBC)18.4 %High12.1-15.2MMetroHealth Cleveland Heights Medical CenterComment on above:Performed By: #### CBC, CP ####[place] [address] [place] [address] Erythrocytes (RBC)4.59 10*6/uLNormal4.0-5.2MMercy Hospital HospitalComment on above:Performed By: #### CBC, CP ####[place] [address] [place] [address] Hematocrit (HCT)35.9 % Bun70-64RbjdvMemorial Health System Marietta Memorial HospitalComment on above:Performed By: #### CBC, CP ####[address] [place] [address] Hemoglobin mass conc (Bld)11.4 g/dLLow12.0-16.0[facility] HospitalComment on above:Performed By: #### CBC, CP ####[address] [phone] PGM47.9 iuZws61-31HzeqkMemorial Health System Marietta Memorial HospitalComment on above:Performed By: #### CBC, CP ####[place] [address] [address] MCHC mass conc (RBC)31.9 g/uXJdkieb34-63TlpmmMemorial Health System Marietta Memorial HospitalComment on above:Performed By: #### CBC, CP ####[place] [address] [place] [address] BXD89.2 gEIjs76-607MwhyqWadsworth-Rittman Hospital on above:Performed By: #### CBC, CP ####[address] [place] [address] Pfpmpcglr672 10*3/uL Oxluex963-329ZazjqProMedica Memorial Hospitalment on above:Result Comment: Performed at [facility] [address] [place] [address] Performed By: #### CBC, CP ####[place] [address] [facility] [facility] [place] [phone] (Leukocytes)7.2 10*3/uLNormal3.5-11.0ProMedica Memorial Hospitalment on above:Performed By: #### CBC, CP ####[address] [place] [address] Platelet mean volume (PMV)NOT REPORTEDNormal6.0-12.0[facility] on above:Performed By: #### CBC, CP ####[address] [place] [address] Comp Metabolic Profon 03-05-2017(cont.)NormalMemorial Health System Marietta Memorial HospitalComment on above:Result Comment: Average GFR for 70 or more years old: 75 mL/min/1.73sq mChronic Kidney Disease: <60 mL/min/1.73sq mKidney failure: <15 mL/min/1.73sq meGFR calculated using average adult body mass. Additional eGFR calculator available at:http://www.Sr.Pago.InSightec/multiple_crcl_2012.htmPerformed at [facility] [address] [facility] [place], [place] [id number] Performed By: #### CBC, CP ####[place] [address] [facility] [address] [facility] [facility] [address] [phone] aminotransferase (ALT)28 U/LNormal5-33 [facility] on above:Performed By: #### CBC, CP ####[place] [address] [facility] [address] [facility] [place] [phone] g/dL Normal3.5-5.2MAultman Orrville Hospital on above:Performed By: #### CBC, CP ####[place] [address] [place] [address] Alkaline Phos52 U/KLuzygi23-059KeokpSt. Catherine of Siena Medical CenterComment on above:Performed By: #### CBC, CP ####[place] [address] [place] [address] Anion gap12 mmol/LNormal9-17MerMercy Health – The Jewish Hospital HospitalComment on above:Performed By: #### CBC, CP ####[place] [address] [place] [address] Aspartate aminotransferase (AST)36 U/LHigh<32 [facility] HospitalComment on above:Performed By: #### CBC, CP ####[address] [place] [address] Bilirubin Ql (U) 0.64 mg/dLNormal0.3-1.2MMercy Hospital HospitalComment on above:Performed By: #### CBC, CP ####[place] [address] [place] [address] BUN/CRE Btyja99Mvdiip1-85Lqzzx [facility]ard HospitalComment on above:Performed By: #### CBC, CP ####[place] [address] [place] [address] Pmbjiiw5.0 mg/dLNormal8.6-10.4[facility] HospitalComment on above:Performed By: #### CBC, CP ####[place] [address] [place] [address] Yyhndflv683 mmol/LNormal 98-107[facility] HospitalComment on above:Performed By: #### CBC, CP ####[place] [address] [place] [address] WN323 mmol/WXhfops91-24Ssjch Willard HospitalComment on above:Performed By: #### CBC, CP ####[facility] [id number] Creatinine0.98 mg/dLHigh0.50-0.90MerMer[facility] HospitalComment on above: Performed By: #### CBC, CP ####[facility] [place] [address] eGFR (non-black)55 mL/min/{1.73_m2}Low>60[facility] HospitalComment on above:Performed By: #### CBC, CP ####[place] [address] [place] [address] eGFR (non-black) mL/min/{1.73_m2}Normal>60Mer[facility] HospitalComment on above:Performed By: #### CBC, CP ####[place] [address] [phone] Glucose mass ffmg325 mg/vOAwru95-61Qgzyu [facility] Comment on above:Performed By: #### CBC, CP ####[place] [address] [place] [address] Potassium molar conc4.2 mmol/LNormal 3.7-5.3[facility] Pione[facility] HospitalComment on above:Performed By: #### CBC, CP ####[place] [address] [phone] Protein6.7 g/dLNormal6.4-8.3[facility] Pione[facility] HospitalComment on above:Performed By: #### CBC, CP ####[place] [address] [place] [address] Wpubad185 mmol/QSdqcoi765-399Hdgfi Willard HospitalComment on above:Performed By: #### CBC, CP ####[place] [address] [place] [address] Urea lonomzyt06 mg/dLNormal8-23[facility] HospitalComment on above:Performed By: #### CBC, CP ####[facility] [address] Albumin/Globulin Ratio NOT REPORTEDNormal1.0-2.5[facility] HospitalComment on above:Performed By: #### CBC, CP ####[facility] [address] Staging:NOT REPORTEDNormalMemorial Health System Marietta Memorial HospitalComment on above:Performed By: #### CBC, CP ####[facility] [place] [address] XR CHEST STANDARD TWO VWon [id number] CHEST STANDARD TWO VWCLINICAL HISTORY: 76-year-old female for recheck.TECHNIQUE: Two views of chest.COMPARISON: Portablechest 03/04/2017 at 1112 hours.FINDINGS: Mild cardiomegaly with dual-chamber pacemaker unchanged. Lungs are clear. No pneumothorax. Moderate degenerative change of thoracic spine.IMPRESSION: No interval change.Interpreted by:BURKE Armstrong Jr.igned by:Jono Villa Jr., MD03/05/17Final resultNormalMemorial Health System Marietta Memorial HospitalCARDIAC CATHETERIZATIONon [id number] HOSPITALPATIENT NAME: LEYLA LAMBERT : 39[facility] REC NO: [id number] [facility]269[facility] NO: [id number] ADMISSION DATE: 03/04/17PHYSICIAN: STEPHANIE GUNNNAMRandy OF PROCEDURE: DDD permanent pacemaker.INDICATION: Chronotropic insufficiency.PROCEDURE: After prepping and draped in usual manner forpacemaker inthe left subclavian region. This was done in surgical suite. UsedMarcaine for local analgesia and made a pocket using 1 dissection. This was a Ancef solution. With that in, I cannulated the subclavianvein twice without difficulty in placing the guidewire each time. Yasmin placed a 7-Thai sheath and placed a ventricular lead in [...] OR in good condition.The generator is the [employer] Advisa DR MRI compatible, serial#[id number]. The atrial lead is a Medtronic 5076-45 cm, serial#[id number]. Ventricle lead is a M edtronic 5076-52 cm, serial#[id number]. Threshold in the right ventricle R wave is 9.4,impedance is808 ohms, threshold is 0.4 and atrial P wave is 4.4, 746ohms, threshold is 0.7. Final settings are low rate of 60, upper rateof .IMPRESSION: Successful implantation of DDD pacemaker for chronotro picinsufficiency.I did a DDD permanent pacemaker for the patient for chronotropicinsufficiency. There is no complication. 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 Epi Anne. [facility] HospitalFL LESS THAN 1 HOURon [id number] LESS THAN 1 HOURHISTORY: Pacemaker insertion in a 76-year-old female.COMPARISON: Chest x-ray, 07/18/2016.TECHNIQUE: Fluoroscopy with C-arm spot films. Four images. Fluoroscopy time, 4 minutes, 22 seconds.PHYSICIAN: Velia. FINDINGS: Dr. Gunn from cardiology used the C-arm during insertion of a dual chambered pacemaker. No radiologist was present.IMPRESSION: Fluoroscopy during dual-chamber pacemaker insertion by Dr. Gunn from cardiology.Interpreted by:BURKE Armstrong Jr.igned by:Jono Villa Jr., MD03/04/17Final [facility] History and Physicalon [id number] IP Note OR TranscriptionNormAdena Regional Medical CenterPTon [id number] Coag RelTime (PPP)1.0 {INR}NormalMemorial Health System Marietta Memorial HospitalComment on above:Result Comment: * THERAPY INDICATIONS * REFERENCE RANGESPts not on anti-coagulants 1.0 - 1.5 INRLowrisk pts on anti-coagulants 2.0 - 3.0 INRHigh risk pts on anti-coagulants 2.5 - 3.5 INRPrevention of atrial thrombo-embolism 3.0 - 4.5 INRPerformed at [facility] [address] [facility].[place], [place] [id number] ([phone] By: #### PT ####[facility] [facility] [place] [address] Prothrombin time (PT) Coag time (PPP)9.9 sNormal9.0-11.6[facility] General HospitalComment on above: Performed By: #### PT ####[facility] [place] [address] XR CHEST PORTABLEon [id number] CHEST PORTABLECHEST X-RAY AP portable upright 03/04/2017CLINICAL INDICATION: A new transvenous pacemakerCOMPARISONSTUDY: 07/18/2016There is cardiomegaly. Patient has a transvenous pacemaker with 2 wires, access wasvia the left subclavian vein and one wire goes to the right atrium, the other to the floor of the right ventricle. There is no current evidence of pneumothorax. No mediastinal shift is evident. Lungsshow no developing airspace process.IMPRESSION: No evidence of pneumothoraxInterpreted by:BURKE Shultzigned by:Milton Acuna MD03/04/17Final resultNormAdena Regional Medical CenterLarge Joint Arthro/Inj: R knee jointUniversity Hospitals Health System Vital Signs Date TimeVital SignValuePerforming IqyqrqznjZqrianrk62-29-8651 11:52-0400Body qlxvigkclqg99.7 [degF]Mthz ScheduleBon [facility] CenterTfpwcx72-15-1706 11:52-0400 Diastolic blood gmewxdvq05 mm[Hg]Mthz ScheduleLewis[facility]10-21-2025 11:52-0400Heart rate67 /minMthz ScheduleLewisgale Hospital [facility]10-21-2025 11:52-0400Respiratory rate18 /minMthz ScheduleLewisgale Hospital [facility]10-21-2025 11:52-0400Systolic blood rhdblfyx408 mm[Hg]Mthz ScheduleLewisgale Hospital [facility]10-20-2025 18:15-0400Diastolic blood mpizfsbp79 mm[Hg]Douglas Will MD Work Phone: [facility]10-20-2025 18:15-0400Heart rate67 /minJojoc Suman CLARK Work Phone: [facility]10-20-2025 18:15-0400 Respiratory rate21 /minDouglas Will MD Work Phone: [facility]10-20-2025 18:15-0400Systolic blood onxwcelh096 mm[Hg]Douglas Will MD Work Phone: [facility]10-20-2025 17:15-0137UqN7% (BldA) [Mass fraction]95 %Douglas Will MD Work Phone: [facility]10-20-2025 15:08-0400Body jroazeiaydk67.1 [degF]Douglas Will MD Work Phone: [facility]10-08-2025 13:35-0400Body .02 cmDouglas Will MD Work Phone: [facility]10-08-2025 13:35-0400 Body mass index (BMI) [Ratio]16.1 kg/m2Douglas Will MD Work Phone: [facility]10-08-2025 13:35-0400 Body cwucrfwzdcg30.6 [degF]Douglas Will MD Work Phone: [facility]10-08-2025 13:35-0400 Body zosdfh33.27 kgDouglas Will MD Work Phone: [phone]10-08-2025 13:35-0400 Diastolic blood pnegmbed81 mm[Hg]Douglas Will MD Work Phone: [phone])[address]10-08-2025 13:35-0400 Heart rate75 /minDouglas Will MD Work Phone: 1([phone])[address]10-08-2025 13:35-0400 Respiratory rate24 /minDouglas Will MD Work Phone: [phone])[address]10-08-2025 13:35-0400 SaO2% (BldA) [Mass fraction]87 %Douglas Will MD Work Phone: 1(967)402-[address] [place], [place] [address]2110-08-2025 13:35-0400 Systolic blood nctehdxm262 mm[Hg]Douglas Will MD Work Phone: 1(834)228-[address] [place], [place] 3262109-30-2025 12:30-0400 Diastolic blood hejpbaaz06 mm[Hg][facility]09-30-2025 12:30-0400Heart rate64 /minMthz [facility]09-30-2025 12:30-0400Systolic blood cieqgrrn008 mm[Hg][facility] 05-16-2025 10:00-0400Body kiyqqibzcpf35 [degF][facility]09-30-2025 10:00-0400Respiratory rate18 /minMthz [facility]09-24-2025 13:30-0400Body hruioq645.21 cmDouglas Will MD Work Phone: [facility]09-24-2025 13:30-0400 Body mass index (BMI) [Ratio]16.7 kg/m2Douglas Will MD Work Phone: [facility]09-24-2025 13:30-0400 Body zuifaa60.82 kgJojoc Suman CLARK Work Phone: [facility]09-23-2025 12:00-0400 Diastolic blood vofvgzjc66 mm[Hg][facility] Schedule[facility]09-23-2025 12:00-0400Heart rate65 /minMthz Schedule[facility]09-23-2025 12:00-0400Systolic blood tsqvnigu987 mm[Hg][facility] Schedule[facility] 05-09-2025 09:55-0400Body vtqxoicbbcz42.59 [degF][facility]09-23-2025 09:55-0400Respiratory rate18 /minMthz [facility]09-17-2025 08:54-0400Body xwocip567.6 cmLeanne Ingrid DO Work Phone: [facility] CenterXboiuvbtrn20-51-5339 08:54-0400Heart rate90 /min Timothy Ingrid DO Work Phone: [facility] CenterZjzxgpbbty36-01-7165 08:54-1870VuS9% (BldA) [Mass fraction]99 %Timothy Ingrid DO Work Phone: [facility] CenterMflodispoe02-94-5333 15:45-0400Diastolic blood bqdvxnve251 mm[Hg]Davidson Herrera MD Work Phone: [facility]09-10-2025 15:45-0400Heart rate68 /minDavidson Herrera MD Work Phone: [facility]09-10-2025 15:45-0400Systolic blood nhotsitb398 mm[Hg]Davidson Herrera MD Work Phone: [facility]09-10-2025 14:15-9037OiF5% (BldA) [Mass fraction]86 %Davidson Herrera MD Work Phone: [facility]09-10-2025 10:17-0400Body njbomv990 cmDavidson Herrera MD Work Phone: [facility]09-10-2025 10:17-0400Body mass index (BMI) [Ratio]16.12 kg/w2TussifjvDavidson Herrera MD Work Phone: [facility]09-10-2025 10:17-0400Body wioqnw62.28 kgDavidson Herrera MD Work Phone: [facility]09-10-2025 09:43-0400 Respiratory rate14 /minDavidson Herrera MD Work Phone: [facility]09-10-2025 07:15-0400Body uzurdsbbrdw92.7 [degF]Davidson Herrera MD Work Phone: [facility]08-21-2025 11:48-0400Body cmDouglas Will MD Work Phone: [facility] CenterAluqylsekg39-44-4859 11:48-0400Body mass index (BMI) [Ratio]16.3 kg/m2Douglas Will MD Work Phone: [facility] CenterEfvhkbnijn51-68-7230 11:48-0400Body temperature 95.7 [degF]Douglas Will MD Work Phone: [facility] CenterBljskejxcm20-75-5613 11:48-0400Body ogpmqc41.73 kgDouglas Will MD Work Phone: [facility] CenterRolygvyuog04-94-1157 11:48-0400Diastolic blood aidllnhc69 mm[Hg]Douglas Will MD Work Phone: [facility] CenterZttnjexdwe02-58-2058 11:48-0400Heart rate72 /min Douglas Will MD Work Phone: [facility] CenterWcnjqplmrk29-13-1811 11:48-0400Respiratory rate24 /minMarc Suman CLARK Work Phone: [facility] CenterBaghubgtds50-11-7936 11:48-5112LsC3% (BldA) [Mass fraction]93 %Douglas Will MD Work Phone: [facility]–SmithvilleIormjbuknw81-19-2814 11:48-0400Systolic blood emkverau537 mm[Hg]Douglas Will MD Work Phone: [facility] CenterSbsimrwtac43-22-3601 11:36-0400Diastolic blood ilfwsqio54 mm[Hg]Larisa Reardon MD Work Phone: [facility]08-08-2025 11:36-0400Systolic blood mm[Hg]Larisa Reardon MD Work Phone: [facility]08-08-2025 10:13-0400Heart rate65 /minLarisa Reardon MD Work Phone: [facility]08-08-2025 10:13-0400 Respiratory rate18 /minLarisa Reardon MD Work Phone: [facility]08-08-2025 10:13-2126ElD4% (BldA) [Mass fraction]99 %Larisa Reardon MD Work Phone: [facility]08-08-2025 07:00-0400Body ssuhtqgrwes82.71 [degF]Larisa Reardon MD Work Phone: [facility]08-08-2025 04:55-0400Body mass index (BMI) [Ratio]16.3 kg/m2Larisa Reardon MD Work Phone: [facility] Pqbzkq51-72-3689 04:55-0400Body zuyihf83.73 kgLarisa Reardon MD Work Phone: [facility] SecFollowapy HealthComment on above:bed zerod 03-22-2025 12:53-0400Body edfirxjamnu30Bhhc Akers MD Work Phone: [facility]08-06-2025 10:50-0400Body Brittni Reardon MD Work Phone: [facility]08-04-2025 15:43-0400Diastolic blood xbzxejby180 mm[Hg]Ashish Bhandari MD Work Phone: [facility]08-04-2025 15:43-0400Heart rate74 /minAshish Bhandari MD Work Phone: [facility]08-04-2025 15:43-0400 Respiratory rate16 /minAshish Bhandari MD Work Phone: [facility]08-04-2025 15:43-1115ZeF4% (BldA) [Mass fraction]97 %Ashish Bhandari MD Work Phone: [phone]08-04-2025 15:43-0400Systolic blood vibuutky370 mm[Hg]Ashish Bhandari MD Work Phone: [phone]08-04-2025 11:17-0400Body adepzv951 cmRichlia Bhandari MD Work Phone: [facility]08-04-2025 11:17-0400Body mass index (BMI) [Ratio]15.06 kg/v2QvcowbwAshish Bhandari MD Work Phone: [phone]08-04-2025 11:17-0400Body xkjbuuozbvq54.81 [degF]Ashish Bhandari MD Work Phone: [facility]08-04-2025 11:17-0400Body ovgvem91.56 kgAshish Bhandari MD Work Phone: [facility]2025 10:30-0400Body mass index (BMI) [Ratio]14.7 kg/c7BpbsisTimothy Penn DO Work Phone: [facility] CenterWgxabszkmh20-05-2667 10:30-0400Body lwgjed02.65 kgTimothy Penn DO Work Phone: [facility] CenterKvuxwgebpm05-27-1319 10:30-0400Diastolic blood nnhxjojp15 mm[Hg]Timothy Penn DO Work Phone: [facility] CenterZzklrtfbyz11-43-7321 10:30-0400Heart rate92 /min Timothy Penn DO Work Phone: [facility] CenterChvyqxfhyd37-37-7096 10:30-3050PaZ0% (BldA) [Mass fraction]99 %Timothy Penn DO Work Phone: [facility] CenterFkwvhbotdg57-16-5983 10:30-0400Systolic blood phdjjyja261 mm[Hg]Timothy Penn DO Work Phone: [facility] CenterQhmpyaqgav17-22-2345 13:55-0400Body llheqr216 cm Douglas Will MD Work Phone: [facility] CenterMtarubwdmv03-36-8373 13:55-0400Body mass index (BMI) [Ratio]15.77 kg/m2Douglas Will MD Work Phone: [facility] CenterNhzsnxykdf21-43-8089 13:55-0400Body temperature 97.3 [degF]Douglas Will MD Work Phone: [facility] CenterZjlzebdobz55-21-3151 13:55-0400Body oovvld82.37 kgDouglas Will MD Work Phone: [facility] CenterZsqpijaoxo11-54-8888 13:55-0400Diastolic blood dmdgvukt09 mm[Hg]Douglas Will MD Work Phone: [facility] CenterXsrlkkhwog84-64-3025 13:55-0400Heart fynp517 /min Douglas Will MD Work Phone: [facility] CenterQlciacztfc83-51-3833 13:55-0400Respiratory rate22 /minDouglas Will MD Work Phone: [facility] CenterDivwrssnfw39-23-8836 13:55-8356MlD3% (BldA) [Mass fraction]98 %Douglas Will MD Work Phone: [facility] CenterKfrhzzbczi83-58-1627 13:55-0400Systolic blood pvszbanb680 mm[Hg]Douglas Will MD Work Phone: [facility] CenterYjryrxxaew83-86-6934 14:08-0400Body bkztji757 cm Douglas Will MD Work Phone: [facility] CenterVphulvffxh17-35-1933 14:08-0400Body mass index (BMI) [Ratio]16.83 kg/m2Douglas Will MD Work Phone: [facility] CenterVykfomwref80-87-8267 14:08-0400Body temperature 97.5 [degF]Douglas Will MD Work Phone: [facility] CenterYxooyndfrx24-40-8126 14:08-0400Body azwxll98.09 kgDouglas Will MD Work Phone: [facility] CenterHkyhauplra28-25-8079 14:08-0400Diastolic blood kmhetbtz37 mm[Hg]Douglas Will MD Work Phone: [facility] CenterQqmsvytkjw19-98-9254 14:08-0400Heart rate82 /min Douglas Will MD Work Phone: [facility] CenterHejrtckpfo06-60-5656 14:08-0400Respiratory rate24 /minDouglas Will MD Work Phone: [facility] CenterOwlsvdwtnj91-75-0011 14:08-3739JoI5% (BldA) [Mass fraction]97 %Douglas Will MD Work Phone: [facility] CenterQkgfdvixnl49-47-6757 14:08-0400Systolic blood djyhahbs534 mm[Hg]Douglas Will MD Work Phone: [facility] CenterZiuqmuccst89-80-0855 11:57-0400Body cm Douglas Will MD Work Phone: [facility] CenterOsspdfjdfz94-13-9820 11:57-0400Body mass index (BMI) [Ratio]17.01 kg/m2Douglas Will MD Work Phone: [facility] CenterMtkjxcfucd03-82-0813 11:57-0400Body temperature 97.11 [degF]Douglas Will MD Work Phone: [facility] CenterWssisvqwty42-35-5683 11:57-0400Body axzxiw80.55 kgDouglas Will MD Work Phone: [facility] CenterKfbokllbfw09-61-0408 11:57-0400Diastolic blood cyyqgmga87 mm[Hg]Douglas Will MD Work Phone: 1(552)512-[address] [place], [place] [address]Qocoqqdfae39-76-1359 11:57-0400Heart rate61 /min Douglas Will MD Work Phone: [facility] CenterGhlyllxcbe19-40-9617 11:57-0400Respiratory rate26 /minDouglas Will MD Work Phone: [facility] CenterEqkmhnfxet88-64-8194 11:57-2226UpM0% (BldA) [Mass fraction]96 %Douglas Will MD Work Phone: [facility] CenterZjweltogti09-78-8321 11:57-0400Systolic blood mm[Hg]Douglas Will MD Work Phone: [facility] CenterOwejgyzhce14-56-4064 14:14-0400Body abggtq442 cm Douglas Will MD Work Phone: [facility] CenterNonqeuntpg14-66-3822 14:14-0400Body mass index (BMI) [Ratio]16.65 kg/m2Douglas Will MD Work Phone: [facility] CenterEbctdntjqa43-32-7607 14:14-0400Body temperature 96.4 [degF]Douglas Will MD Work Phone: [facility] CenterHzsgenyige09-10-0276 14:14-0400Body rugdyy92.64 kgDouglas Will MD Work Phone: [facility] CenterEhyppdawlc02-00-5636 14:14-0400Diastolic blood odnejjvb58 mm[Hg]Douglas Will MD Work Phone: 1(349)732-[address] [place], [place] [address]Rqachhmkkf38-92-8377 14:14-0400Heart rate83 /min Douglas Will MD Work Phone: [place] [address]Kmyokrbpdz86-82-3578 14:14-0400Respiratory rate36 /minDouglas Will MD Work Phone: [facility] CenterTmomatmyos76-89-0791 14:14-2490YsA2% (BldA) [Mass fraction]96 %Douglas Will MD Work Phone: [facility] CenterLzahezrhad64-63-7432 14:14-0400Systolic blood hjhwktou351 mm[Hg]Douglas Will MD Work Phone: [facility] CenterNkydszvxhw51-26-4084 13:26-0400Body gfpkva494 cm Douglas Will MD Work Phone: [facility] CenterZgdgcfbjgh57-29-0787 13:26-0400Body mass index (BMI) [Ratio]18.25 kg/m2Douglas Will MD Work Phone: 1(983)138-[address] [place], [place] [address]Xsrmjyzbsv23-07-4513 13:26-0400Body temperature 96.21 [degF]Douglas Will MD Work Phone: [facility] CenterUbxtcntipa32-94-8703 13:26-0400Body ybonnt41.72 kgDouglas Will MD Work Phone: [facility] CenterKvybagjiyt78-45-8503 13:26-0400Diastolic blood kqjlalqm71 mm[Hg]Douglas Will MD Work Phone: [facility] CenterAatvelbpua93-88-1495 13:26-0400Heart rate81 /min Douglas Will MD Work Phone: [facility] CenterIxvjwbupmm72-38-9925 13:26-0400Respiratory rate20 /minDouglas Will MD Work Phone: [place] [address]Dcltjdegmt78-52-3437 13:26-0243XjF1% (BldA) [Mass fraction]98 %Douglas Will MD Work Phone: [facility] CenterLrodeyianp84-51-9340 13:26-0400Systolic blood dcuxxlqr173 mm[Hg]Douglas Will MD Work Phone: [facility] CenterKnbakhcwoc98-36-1333 11:32-0400Body ynkcrb914 cm Cindy Gabe MANAGER BEHAVIOR Work Phone: [facility] CenterXkuiibjoiy58-75-6073 11:32-0400Body mass index (BMI) [Ratio]17.79 kg/m2Li Gabe MANAGER BEHAVIOR Work Phone: [facility] CenterWrokbombxl66-90-3854 11:32-0400Body temperature 95.9 [degF]Cindy Bernal MANAGER BEHAVIOR Work Phone: [place] [address]Qdftxxpaau44-58-2550 11:32-0400Body eyscps84.54 kgMeagan Gabe MANAGER BEHAVIOR Work Phone: [facility] CenterSpcungykha81-59-5336 11:32-0400Diastolic blood crzjpaco88 mm[Hg]Cindy Gabe MANAGER BEHAVIOR Work Phone: [facility] CenterDwlvxfdmrj30-62-9069 11:32-0400Heart rate78 /min Cindy Gabe MANAGER BEHAVIOR Work Phone: [place] [address]Ebbizmugtf66-85-4368 11:32-0400Respiratory rate22 /minLi Gabe MANAGER BEHAVIOR Work Phone: [place] [address]Awdghrqvrk65-68-3084 11:32-7753UvT0% (BldA) [Mass fraction]98 %Cindy Gabe MANAGER BEHAVIOR Work Phone: [place] [address]Tmfbauqwki60-41-9611 11:32-0400Systolic blood bktarygd169 mm[Hg]Cindy Gabe MANAGER BEHAVIOR Work Phone: [facility] CenterIfsnsigvok52-14-5196 14:08-0400Body mass index (BMI) [Ratio]18.42 kg/w0UxorcNolan Julio MD MPH Work Phone: [facility]10-14-2024 14:08-0400 Body cbyfmo65.17 kgNolan Julio MD MPH Work Phone: 1(306)[address] [place], [place] 1686810-14-2024 14:08-0400 Diastolic blood mm[Hg]Nolan Julio MD MPH Work Phone: [phone])[address] [place], [place] 1686810-14-2024 14:08-0400 Heart rate76 /Vinod Julio MD MPH Work Phone: 1(782)[address] [place], [place] 1686810-14-2024 14:08-0400 Systolic blood hhvwiroh019 mm[Hg]Nolan Julio MD MPH Work Phone: 1(440)[address] [place], [place] 16[address]808-26-2024 10:31-0400 Body mass index (BMI) [Ratio]18.78 kg/n1GxzkmNolan Julio MD MPH Work Phone: 1(362)[address] [place], [place] 16[address]808-26-2024 10:31-0400 Body .08 kgNolan Julio MD MPH Work Phone: [phone])[address] [place], [place] 16[address]808-26-2024 10:31-0400 Diastolic blood fyjluhht86 mm[Hg]Nolan Julio MD MPH Work Phone: 1(833)[address] [place], [place] 16[address]808-26-2024 10:31-0400 Heart rate98 /Vinod Julio MD MPH Work Phone: 1(301)[address] [place], [place] 16[address]808-26-2024 10:31-0400 Systolic blood mlmjjqiq715 mm[Hg]Nolan Julio MD MPH Work Phone: 1(299)[address] [place], [place] 16[address]808-22-2024 11:28-0400 Body cxerlu292 cmDouglas Will MD Work Phone: [facility] CenterQovhcpvipx62-39-3465 11:28-0400Body mass index (BMI) [Ratio]17.89 kg/m2Douglas Will MD Work Phone: [facility] CenterQsklqjygfi82-06-0527 11:28-0400Body temperature 96.6 [degF]Douglas Will MD Work Phone: [facility] CenterFfhhdotomj95-32-1685 11:28-0400Body boqnvx36.81 kgJojoc Suman CLARK Work Phone: [facility] CenterClzhgbzbbb05-44-4201 11:28-0400Diastolic blood cobjemgh02 mm[Hg]Douglas Will MD Work Phone: [facility] CenterMubervaiws43-11-2929 11:28-0400Heart rate66 /min Douglas Will MD Work Phone: [facility] CenterQqytbaqqkp69-94-5141 11:28-0400Respiratory rate26 /minDouglas Will MD Work Phone: [facility] CenterQrcmsxtguz84-52-0620 11:28-0428QrY6% (BldA) [Mass fraction]98 %Douglas Will MD Work Phone: [facility] CenterXdwipepxpn61-71-7032 11:28-0400Systolic blood ucfvfmst019 mm[Hg]Douglas Will MD Work Phone: [facility] CenterAgczzlzsje91-94-8988 14:00-0400Body temperature 97.3 [degF]Td Hutchison MD Work Phone: [facility]08-16-2024 14:00-0400 Diastolic blood scjqolcl13 mm[Hg]Td Hutchison MD Work Phone: [phone] [facility]24 14:00-0400 Heart rate67 /minTd Hutchison MD Work Phone: [facility]08-16-2024 14:00-0400 Respiratory rate19 /minTd Hutchison MD Work Phone: [facility]08-16-2024 14:00-0400 SaO2% (BldA) [Mass fraction]96 %Td Hutchison MD Work Phone: [facility]08-16-2024 14:00-0400 Systolic blood wdioemjk002 mm[Hg]Td Hutchison MD Work Phone: [facility]08-15-2024 07:27-0400 Body cmAndrafat Hutchison MD Work Phone: 1(087)754-[address] [place], [place] 4302308-15-2024 07:27-0400 Body mass index (BMI) [Ratio]18.2 kg/p0KetmpbTd Hutchison MD Work Phone: 1(498)[address] [place], [place] 2005308-15-2024 07:27-0400 Body uyksyb34.6 kgTd Hutchison MD Work Phone: 1(868)[address] [place], [place] 2005308-12-2024 09:38-0400 Body mass index (BMI) [Ratio]18.42 kg/u7PgxhxNolan Julio MD MPH Work Phone: 1(188)[address] [place], [place] 1686808-12-2024 09:38-0400 Body xqgkay33.17 kgNolan Julio MD MPH Work Phone: 1(968)[address] [place], [place] 1686808-12-2024 09:38-0400 Diastolic blood atwhwzdf37 mm[Hg]Nolan Julio MD MPH Work Phone: 1(655)[address] [place], [place] 1686808-12-2024 09:38-0400 Heart rate64 /minNolan Julio MD MPH Work Phone: 1(924)[address] [place], [place] 1686808-12-2024 09:38-0400 Systolic blood puewzngv416 mm[Hg]Nolan Julio MD MPH Work Phone: 1(390)[address] [place], [place] 1686811-03-2023 13:25-0400 Blood Pressure LocationKathy Lue [facility]-03-2023 13:25-0400Diastolic blood nleoymco41 mm[Hg]Lou Lue [facility] [place] 338201-03-2023 13:25-0400Systolic blood soielazx900 mm[Hg]Lou Lue [facility]10-26-2023 14:15-0400Body lvpwor541.21 cmInessa Gonzalesacher Other [employer] Other 10-26-2023 14:15-0400Body mass index (BMI) [Ratio] 21.67 kg/k5OpqqbyceInessa Gonzalesacher Other [employer] Other 10-26-2023 14:15-0400Body qnlpzygriep19.5 [degF] Inessa Songarmando Other [employer] Other 10-26-2023 14:15-0400Body hadrlh53.89 kgInessa Gonzalesacher Other [employer] Other 10-26-2023 14:15-0400Respiratory rate18 /minInessa Gonzalesacher Other [employer] Other 10-26-2023 14:15-2820LhW4% (BldA) [Mass fraction]97 % Inessa Gonzaleswilfredo Other [employer] Other 09-14-2023 14:43-0400Body mass index (BMI) [Ratio] 20.23 kg/d5LlgtlHenna Bravo [employer]09-14-2023 14:43-0400Body .8 kgHenna Bravo [facility] [employer]09-14-2023 14:43-0400 Diastolic blood amlnatja92 mm[Hg]Henna Bravo [facility] [employer] 04-30-2023 14:43-0400Heart vfkb306 /minHenna Bravo [employer] 04-30-2023 14:43-0400Systolic blood qfcoxicg785 mm[Hg]Henna Bravo [facility]09-04-2023 17:19-0400Body rrldiu354.02 cmMD Douglas Will Work Phone: [facility]09-04-2023 17:19-0400 Body qhibrpoearm30.7 [degF]MD Douglas Will Work Phone: 1(842)060[facility]09-04-2023 17:19-0400 Body rvdowv83.16 kgMD Douglas Will Work Phone: 1(156)[address]09-04-2023 17:19-0400 Diastolic blood vrtdabtk06 mm[Hg]MD Douglas Will Work Phone: 1(026)[address]09-04-2023 17:19-0400 Heart rate77 /minMD Douglas Will Work Phone: 1(705)[address]09-04-2023 17:19-0400 Respiratory rate16 /minMD Douglas Will Work Phone: 1(474)394-[address] [place], [place] 3687409-04-2023 17:19-0400 SaO2% (BldA) [Mass fraction]97 %MD Douglas Will Work Phone: 1(068)822-[address] [place], [place] 3687409-04-2023 17:19-0400 Systolic blood mm[Hg]MD Douglas Will Work Phone: 1(130)[address]06-27-2023 09:09-0400 Body awziotwdmgf39.81 [degF]Daniel Araiza MD Work Phone: [facility]06-27-2023 09:09-0400Diastolic blood bvxitrxj51 mm[Hg]Daniel Araiza MD Work Phone: [facility]06-27-2023 09:09-0400Heart inxs920 /minAleliliana Araiza MD Work Phone: [facility]06-27-2023 09:09-0400 Respiratory rate16 /minDaniel Araiza MD Work Phone: [facility]06-27-2023 09:09-2241YuA8% (BldA) [Mass fraction]99 %Daniel Araiza MD Work Phone: [facility]06-27-2023 09:09-0400Systolic blood alvmwwgc422 mm[Hg]Daniel Araiza MD Work Phone: [facility]06-20-2023 11:08-0400Diastolic blood besodzrz32 mm[Hg]Nighat [facility] Work Phone: [facility]06-20-2023 11:08-0400Heart rate83 /minChclovis [facility]ist hospitalten [facility] Work Phone: [facility]06-20-2023 11:08-0400Systolic blood aidgnmmr043 mm[Hg]Nighat [facility] Work Phone: [facility]06-19-2023 14:45-0400Blood Pressure LocationRobert MADISON [facility]06-19-2023 14:45-0400Diastolic blood vhdzytoc51 mm[Hg]Isauro ARCHULETA [facility]06-19-2023 14:45-0400Heart rate96 /minRobert MADISON [facility]06-19-2023 14:45-0400Systolic blood lwossqzu091 mm[Hg]Isauro ARCHULETA [facility]06-05-2023 10:36-0400Body mass index (BMI) [Ratio]19.31 kg/g1ZbnzkfadRochester Regional [facility] Work Phone: [facility]06-05-2023 10:36-0400Body pmscza78.44 kgChrisRochester Regional Health Work Phone: [facility]06-05-2023 10:36-0400Diastolic blood tgjpeabp42 mm[Hg]Nighat Bazzi [facility] Work Phone: [facility]06-05-2023 10:36-0400Heart wvki247 /minNighat Bazzi [facility] Work Phone: [facility]06-05-2023 10:36-0400Systolic blood vixbunwo258 mm[Hg]Nighat Bazzi [facility] Work Phone: [facility]05-09-2023 10:01-0400Diastolic blood orwzosta68 mm[Hg]Henna Bravo [facility]05-09-2023 10:01-0400Heart gyiy873 /minHenna Bravo [facility]05-09-2023 10:01-0400Systolic blood fimgoaar823 mm[Hg]Henna Bravo [facility]04-24-2023 10:37-0400Body mass index (BMI) [Ratio]18.6 kg/m2Arin Thao [facility]04-24-2023 10:37-0400Body jicjsk78.63 kgArin Thao [facility]04-24-2023 10:37-0400Diastolic blood fudzwjwn88 mm[Hg]Shy Osuna [facility]04-24-2023 10:37-0400Heart rate93 /minArin Thao [facility]04-24-2023 10:37-0400Systolic blood mrnaradb272 mm[Hg]Shy Osuna [facility]04-17-2023 14:13-0400 Blood Pressure LocationIsauro KATHE [facility]04-17-2023 14:13-0400Diastolic blood ahtjesiy70 mm[Hg]Isauro ARCHULETA [facility]04-17-2023 14:13-0400Systolic blood pgfxkbom338 mm[Hg]Isauro ARCHULETA [facility] [place] 338201-14-2022 10:47-0500Body mass index (BMI) [Ratio]19.66 kg/h4Hcqxezdb [facility] Work Phone: [facility]11-14-2022 10:47-0500Body ntroqk11.35 kgChristen [facility] Work Phone: [facility]10-27-2022 08:48-0400Body mass index (BMI) [Ratio]20.02 kg/m2Arin Thao [facility]10-27-2022 08:48-0400Body uvngpl03.26 kgArin Thao [facility]10-27-2022 08:48-0400Diastolic blood relusmcf01 mm[Hg]Shy Thao [facility]10-27-2022 08:48-0400Heart igtk120 /minArin Pierron [facility]10-27-2022 08:48-0400Systolic blood uhmuwemd737 mm[Hg]Shy Thao [facility]10-19-2022 13:13-0400Body mass index (BMI) [Ratio]20.73 kg/m2Arin Thao [facility]10-19-2022 13:13-0400Body weight 53.07 kgArin Thao [facility]10-19-2022 13:13-0400Diastolic blood jyrynnwv13 mm[Hg]Shy Pierron [facility]10-19-2022 13:13-0400Heart rate88 /minArin Thao [facility]10-19-2022 13:13-0400Systolic blood xwuuvqct079 mm[Hg]Shy Thao [facility]09-14-2022 13:15-0400Body hytvcgeaesr41 [degF]Chair Joann Work Phone: [place] [address]-14-2022 13:15-0400Diastolic blood mm[Hg]Chair Renton Work Phone: [place] [address]-14-2022 13:15-0400Heart rate89 /min Chair Renton Work Phone: [place] [address]-14-2022 13:15-0400Respiratory rate 18 /minChair Renton Work Phone: [place] [address]-14-2022 13:15-4650EoT6% (BldA) [Mass fraction]97 %Chair Joann Work Phone: [place] [address]-14-2022 13:15-0400Systolic blood pgvsygqc649 mm[Hg]Chair Joann Work Phone: [place] [address]-12-2022 13:15-0400Body temperature 98.1 [degF]Chair Renton Work Phone: [facility]09-12-2022 13:15-0400Diastolic blood mm[Hg]Chair Joann Work Phone: [facility]09-12-2022 13:15-0400Heart shqo217 /minChair Joann Work Phone: [place] [address]-12-2022 13:15-0400Respiratory rate 16 /minChair Joann Work Phone: [place] [address]-12-2022 13:15-1877WtQ8% (BldA) [Mass fraction]98 %Chair Renton Work Phone: [place] [address]-12-2022 13:15-0400Systolic blood ebstyzfz062 mm[Hg]Chair Renton Work Phone: [place] [address]-08-2022 13:03-0400Body temperature 98.71 [degF]Chair Renton Work Phone: [facility]09-08-2022 13:03-0400Diastolic blood prmpeyqk33 mm[Hg]Chair Renton Work Phone: [facility]09-08-2022 13:03-0400Heart rate87 /min Chair Joann Work Phone: [facility]09-08-2022 13:03-0400Respiratory rate 18 /minChair Joann Work Phone: [facility]09-08-2022 13:03-1624LeR0% (BldA) [Mass fraction]96 %Chair Jaonn Work Phone: [facility]09-08-2022 13:03-0400Systolic blood kwaqcstg700 mm[Hg]Chair David Work Phone: [facility]08-29-2022 13:55-0400Blood Pressure LocationRobert Minus [facility]08-29-2022 13:55-0400Diastolic blood xlnyumxz83 mm[Hg]Isauro Minus [facility]08-29-2022 13:55-0400Heart rate77 /minRobert KATHE [facility]08-29-2022 13:55-0400Systolic blood bbjwbtyv511 mm[Hg]Isauro ARCHULETA [facility]08-18-2022 10:29-0817KxU8% (BldA) [Mass fraction]97 %Karsten Dyer MD Work Phone: bon [place] [facility]93-21-9481 07:00-0400Body znavxefpkwo70.39 [degF]Karsten Dyer MD Work Phone: [place] [facility]ITALFRHUKS74-29-5423 07:00-0400Diastolic blood bznsject09 mm[Hg]Karsten Dyer MD Work Phone: [facility]08-18-2022 07:00-0400Heart rate91 /venturaChangel Dyer MD Work Phone: [facility]08-18-2022 07:00-0400 Respiratory rate16 /minKarsten Dyer MD Work Phone: [facility]08-18-2022 07:00-0400Systolic blood mm[Hg]Karsten Dyer MD Work Phone: [facility]08-17-2022 15:47-0400Body cmChrsherron Dyer MD Work Phone: [facility]08-17-2022 15:47-0400Body mass index (BMI) [Ratio]22.46 kg/f9Fcckpimbnpfangel Dyer MD Work Phone: [facility]08-17-2022 15:47-0400Body xeqxzz14.52 kgChangel Dyer MD Work Phone: [facility]08-17-2022 11:16-0400Body mass index (BMI) [Ratio]22.86 kg/m2Arin Thao [facility]08-17-2022 11:16-0400Body uarnxb98.7 kgArin Pierron [facility]06-28-2022 11:19-0400Body mass index (BMI) [Ratio]21.79 kg/q5GxgbetpiNighat Bazzi [facility] Work Phone: [facility]06-28-2022 11:19-0400Body .79 kgChherber Bazzi [facility] Work Phone: [facility]06-28-2022 11:19-0400Diastolic blood anlhfmja55 mm[Hg]Nighat Bazzi [facility] Work Phone: [facility]06-28-2022 11:19-0400Heart rate87 /Dina Bazzi [facility] Work Phone: [facility]06-28-2022 11:19-0400Systolic blood mm[Hg]Nighat Bazzi [facility] Work Phone: [facility]06-23-2022 12:01-0400Body cmJorge Wilson MD Work Phone: [place] Paqydl17-26-1661 12:01-0400Body werlft73.29 kgJorge Wilson MD Work Phone: [place] Kprfif34-31-6638 10:36-0400Body mass index (BMI) [Ratio]21.62 kg/n3NbepyjtbNighat Bazzi [facility] Work Phone: [facility]06-15-2022 10:36-0400Body ugdbli83.34 kgChherber Bazzi [facility] Work Phone: [facility]06-15-2022 10:36-0400Diastolic blood wafmnpmz41 mm[Hg]Nighat Bazzi [facility] Work Phone: [facility]06-15-2022 10:36-0400Heart rate90 /minNighat Bazzi [facility] Work Phone: [facility]06-15-2022 10:36-0400Systolic blood tktozsmi266 mm[Hg]Nighat Bazzi [facility] Work Phone: [facility]06-14-2022 14:53-0400Blood Pressure LocationRobert RICE [facility] 06-14-2022 14:53-0400Diastolic blood olqrpxou35 mm[Hg] Isauro RICE [facility] 06-14-2022 14:53-0400Heart rate68 /minRobert RICE [facility] 06-14-2022 14:53-0400Systolic blood hemwoifs472 mm[Hg] Isauro ARCHULETA [facility] 05-18-2022 10:42-0400Body mass index (BMI) [Ratio]21.26 kg/i7Unjwsyvsherber Bazzi [facility] Work Phone: [facility] CenterFqspvd98-19-8949 10:42-0400Body nnkoqg28.43 kg Nighat Bazzi [facility] Work Phone: [facility] CenterKkvsbp89-36-4200 10:42-0400Diastolic blood wenyyhcm96 mm[Hg]Nighat Bazzi [facility] Work Phone: [facility] CenterJtatvs65-35-5940 10:42-0400Heart vupz290 /min Nighat Bazzi [facility] Work Phone: [facility] CenterXsmdov30-67-9101 10:42-0400Systolic blood exnagzel135 mm[Hg]Nighat Bazzi [facility] Work Phone: [facility] CenterQhohqa66-75-3646 08:48-0400Body raqwmy861 cm Ana Mariamckenzie Amato DO Work Phone: [facility]05-16-2022 08:48-0400Body .43 kgSantsadafkirstin Amato DO Work Phone: [facility]05-09-2022 14:20-0400Blood Pressure LocationRobert KATHE [facility] 05-09-2022 14:20-0400Diastolic blood jjiwuiaw72 mm[Hg] Isauro ARCHULETA [facility] 05-09-2022 14:20-0400Heart rate62 /minRobert KATHE [facility] 05-09-2022 14:20-0400Systolic blood mm[Hg] Isauro ARCHULETA [facility] 04-13-2022 12:14-0400Body hisrsx722 cmTresami Jean MD Work Phone: [facility]04-13-2022 12:14-0400Body djuueg72.98 kgNguyễn Jean MD Work Phone: [facility]04-11-2022 11:03-0400Body mass index (BMI) [Ratio]21.26 kg/m2Arin [place] [address]-11-2022 11:03-0400Body adxjlo35.43 kgShy [place] [address]-11-2022 11:03-0400Diastolic blood wpyjgipu08 mm[Hg]Shy DuranDavid [place] [address]-11-2022 11:03-0400Heart rate91 [facility] ThaoDavid [place] [address]-11-2022 11:03-0400Systolic blood bsasoukv848 mm[Hg]Shy Osuna [facility] CenterHjqhwh13-88-2062 14:01-0500Body .02 cm Epi Andrews Work Phone: 1(387) 649-6945437-4731WD-Dxbittt-[address] Work Phone: 1(512) 930-606711-17-2021 14:01-0500Body mass index (BMI) [Ratio] 17.24 kg/a4TbtmqrwpEpi Andrews Work Phone: 1(430) [phone]-Eeqrmqh[address] Work Phone: 1(601) 321-124511-17-2021 14:01-0500Body surface area Derived from formula1.42 t6YxewrxnzEpi Andrews Work Phone: 1(969) [phone]-Ewiqqpj[address] Work Phone: 1(819) 863-349111-17-2021 14:01-0500Body yiyxnp57.14 kgReddlilliana Navarro Darryl Work Phone: 1(668)[phone]-Xvubclq-[address] Work Phone: 1(285) 210-841511-17-2021 14:01-0500Diastolic blood mm[Hg] Epi Andrews Work Phone: 1(256)[phone]-Pdkpjvm-[address] Work Phone: 1(458) 528-322611-17-2021 14:01-0500Heart rate96 /minEpi Melanie Darryl Work Phone: 1(128)178-788-1251WD-Jaawssl-[address] Work Phone: 1(533) 788-138111-17-2021 14:01-0500Systolic blood kixqvjxh385 mm[Hg] Epi Andrews Work Phone: 1(070)[phone]-Nkxzlvw-[address] Work Phone: 1(253) 808-963009-29-2021 13:09-0400Body lkegqq391.02 cmEpi Melanie Darryl Work Phone: 1(816)[phone]-Muadqxi-[facility] Special[facility] Work Phone: 1(216) 996-429909-29-2021 13:09-0400Body mass index (BMI) [Ratio]22.5 kg/j3Onptabqo Melanie Darryl Work Phone: 1(106)[phone]-Wzagomh-[facility] Work Phone: 1(772) 798-736109-29-2021 13:09-0400Body surface area Derived from formula1.59 a9NtfhcoznEpi Andrews Work Phone: 1(536)[phone]-Amddcka-[facility] Work Phone: 1(966) 826-730709-29-2021 13:09-0400Body akvhdg51.61 kgEpi Melanie Darryl Work Phone: 1(594)[phone]-Eoyneql-[facility] Work Phone: 1(983) 278-927809-29-2021 13:09-0400Diastolic blood vrnghped57 mm[Hg] Epi Andrews Work Phone: mg330-7392OD-SxrleoiWillis-[facility] Work Phone: 1(377) 315-969609-29-2021 13:09-0400Heart rate97 /minEpi Andrews Work Phone: mg604-0690SQ-QfdmchnWillis-[facility] Work Phone: 1(226) 357-662309-29-2021 13:09-0400Systolic blood iixvwcqj956 mm[Hg] Epi Andrews Work Phone: mg096-1642LZ-DwzotwzWillis-[facility] Work Phone: 1(505) 589-948009-29-2021 13:09-10589 1Jguilherme Andrews Work Phone: mg794-8533QP-HhspseaWillis-[facility] Work Phone: comment on above:[id number] 11:02-0400Body mass index (BMI) [Ratio]22.32 kg/m2Shy [place] [facility] Work Phone: 1(812) 516-390609-23-2021 11:02-0400Body .15 kgShy [facility]on[facility] Work Phone: 1(289) 158-621709-23-2021 11:02-0400Diastolic blood mm[Hg] Shy Osuna [facility] Work Phone: 1(220) 116-887009-23-2021 11:02-0400Heart rate89 /minShy Osuna [facility] Work Phone: 1(466) 907-120409-23-2021 11:02-0400Systolic blood bfmcqfon934 mm[Hg] Shy Osuna [facility] Work Phone: 1(106) 981-931108-04-2021 13:14-0400Body txwyde451.02 cmEpi Andrews Work Phone: mg525-3960QP-Qfzazyulnaclmnbc-[facility] 6 [facility] Work Phone: 1(204) 907-320008-04-2021 13:14-0400Body mass index (BMI) [Ratio] 22.44 kg/i0Wjhmiohc F Darryl Work Phone: 1(492) [phone]-Tzvmwxarakkurwks-[place] [facility] Work Phone: 1(690)792-134-895814-61 13:14-0400Body surface area Derived from formula1.59 b2ZaplukbbEpi Nulller Work Phone: [phone]-Rbivtowpgvhxrxes-[place] Work Phone: [phone] 13:14-0400Body woutvpvsczm58.7 [degF] Epi Navarro [place] Work Phone: [phone]-Bwdbfaitbqsgfatk-[facility] Work Phone: [phone] 13:14-0400Body .47 kgEpi Navarro [place] Work Phone: 1(267) [phone]-Ajigxchuwydgyzmf-[place] Work Phone: 1)[phone] 13:14-0400Diastolic blood zwrpjuxn076 mm[Hg]Epi Nulller Work Phone: [phone]-Jnnbfvuulmwesmje-[facility] Work Phone: [phone])[phone] 13:14-0400Heart qgqa152 /minEpi Nulller Work Phone: 1(231) [phone]-Heacatkcgwhsplyd-[facility] Work Phone: 1(857)[phone] 13:14-0400Respiratory rate18 /minEpi Navarro [place] Work Phone: [phone])[phone]-Qjhnrxgolevmlpiq-[facility] Work Phone: [phone] 13:14-8826DpQ2% (BldA) [Mass fraction]97 % Epi Navarro [place] Work Phone: [phone])[phone]-Gybgzmedsxiootko-[facility] Work Phone: [phone])[phone] 13:14-0400Systolic blood slmveyjh685 mm[Hg] Epi Nulller Work Phone: 1(657) [phone]-Pptddjwvbnocrjtn-[facility] Work Phone: 1(462) 708-515308-04-2021 13:14-55877 1Jgijyoti Andrews Work Phone: mg564-5545LW-Ipdxmarvqrnxgmmv-[facility] 6 [facility] Work Phone: comment on above:OdkiTzamp26-82-9018 11:05-0400Body mass index (BMI) [Ratio]22.32 kg/m2Shy [place] [facility] Work Phone: 1(933) 342-424008-03-2021 11:05-0400Body wmydwe59.15 kgShy Pierron [facility] Work Phone: 1(694) [phone] 11:05-0400Diastolic blood uuwqdzxs39 mm[Hg] Shy Pierron [facility] Work Phone: 1(626) 254-789008-03-2021 11:05-0400Heart rate86 /minShy Osuna [facility]ending [facility] to [facility] Work Phone: 1(732) 437-617408-03-2021 11:05-0400Systolic blood ioxxgqzm167 mm[Hg] Shy Thao [facility] Work Phone: 1(526) 578-466107-20-2021 08:31-0400Body qhylgx400.02 cmReddlilliana Andrews Work Phone: [id number]-Sjdjxokaaeopag-[place] Work Phone: 1(319) [phone] 08:31-0400Body mass index (BMI) [Ratio] 22.73 kg/g6Kqmneflalilliana Anderws Work Phone: 1(665) [phone]-Dyzkmrpawiwwwz-[place] Work Phone: 1(555) 346-243807-20-2021 08:31-0400Body surface area Derived from formula1.6 b2Hxilcyfjlilliana Andrews Work Phone: 1(982) [phone]-Npzdbdcikwsujl-[place] Work Phone: 1(596) 556-699107-20-2021 08:31-0400Body pdbavklqhsz00.1 [degF] Epililliana Andrews Work Phone: 1(672) [phone]-Hesdudeplqmzhk-[place] Work Phone: 1(171) 405-425507-20-2021 08:31-0400Body .2 kgEpi Nulller Work Phone: 1(223) [phone]-Hricdbsdftwtmx-[place] Work Phone: 1(191) 213-583507-07-2021 11:11-0400Body mass index (BMI) [Ratio] 22.64 kg/w5NwxyuHenna Bravo [facility] Work Phone: 1(107) 467-497207-07-2021 11:11-0400Body .97 kgHenna Bravo [facility] Work Phone: 1(880) [phone] 11:11-0400Diastolic blood ipycuzpr53 mm[Hg] Henna Bravo [facility] Work Phone: 1(655) [phone] 11:11-0400Heart rate86 /minHenna Bravo Pending sale to [facility] Work Phone: 1(665) [phone] 11:11-0400Systolic blood ecjvounh572 mm[Hg] Henna Bravo [facility] Work Phone: 1(743) [phone] 15:47-0400Body rivodq636.02 cmEpi Nulller Work Phone: 1(222) [phone]-Eejvnpwwrxyhns-[facility] Work Phone: 1(500) 249-879606-30-2021 15:47-0400Body mass index (BMI) [Ratio] 22.67 kg/b2UbmhksioEpi Andrews Work Phone: 1(992) [phone]-Svsaeawrgljjry-[facility] Work Phone: 1(759) [phone] 15:47-0400Body surface area Derived from formula1.6 m2DsrajadqEpi Andrews Work Phone: 1(111) [phone]-Wgcgbrwwtvpwug-[place] Work Phone: 1(850) [phone] 15:47-0400Body hncertugdon46.9 [degF] Epililliana Andrews Work Phone: [phone]-Djicurqxdiahun-[facility] Work Phone: 1(593) [phone] 15:47-0400Body .06 kgJomansoor Andrews Work Phone: [phone]-Huhfhqhcvmfewt-[facility] Work Phone: 1(724) [phone] 15:47-82785 1Jonasirisha Andrews Work Phone: [phone]-KogmuhcleofljsWISHCLOUDS Work Phone: comment on above:[id number] 10:54-0400Body mass index (BMI) [Ratio]22.67 kg/y1Zovwficw [facility] Work Phone: [facility] Work Phone: 1(145) 747-688806-14-2021 10:54-0400Body ghvraw83.06 kgChrisshelby [facility] Work Phone: [facility]come Referrals Work Phone: 1(796) 334-952306-14-2021 10:54-0400Diastolic blood yaihvbig013 mm[Hg]Nighat Bazzi [facility] Work Phone: [facility] Work Phone: 1(858) 581-520906-14-2021 10:54-0400Heart rate83 /minChrisshelby [facility] Work Phone: [facility] Healthcare[facility]opsFromVirginia.[facility] Work Phone: 1(694) [phone] 10:54-0400Systolic blood tzgyctlp235 mm[Hg] Nighat Bazzi [facility] Work Phone: [facility] Work Phone: 1(563) 390-240905-19-2021 15:07-0400Body uhlucf285.02 cmJomansoor Andrews Work Phone: mg104-7232SJ-Vxawwwwyhezggp-[employer] Work Phone: 1(495) [phone] 15:07-0400Body mass index (BMI) [Ratio] 22.74 kg/n4RbqnskszEpi Andrews Work Phone: 1(702) [phone]-Ytutjsnyoiuart-[place] Work Phone: 1(131) 446-976505-19-2021 15:07-0400Body surface area Derived from formula1.6 z2GekycndgEpi Andrews Work Phone: mg551-5059QI-Rkippzomtarigh-Debbie Work Phone: 1(823) 512-766405-19-2021 15:07-0400Body ijzvkwjnxao46.1 [degF] Epi Navarro [place] Work Phone: 1(146) [phone]-Yuuhmoorfcvzxx-[employer] Work Phone: 1(766) 307-374205-19-2021 15:07-0400Body aggphf46.23 kgEpi Andrews Work Phone: 1(523) [phone]-Nfjptvczxzdyuk-[employer] Work Phone: 1(308) 488-765405-19-2021 15:07-0400Respiratory rate16 /minJomansoor Andrews Work Phone: 1(786) [phone]-Mmamjzagrdaabt-[employer] Work Phone: 1(625) 373-114305-03-2021 10:38-0400Body mass index (BMI) [Ratio] 22.85 kg/m2Shy [employer] Work Phone: 1(996) 174-861305-03-2021 10:38-0400Body jaduhv31.51 kgShy [place] [facility] Work Phone: 1(882) [phone] 10:38-0400Diastolic blood xaswnfea70 mm[Hg] Shy Thao [facility] Work Phone: 1(129) [phone] 10:38-0400Heart pfbd813 /minShy Osuna Pending sale to [facility] Work Phone: 1(801) 750-222105-03-2021 10:38-0400Systolic blood crwgzrog017 mm[Hg] Shy Osuna [facility]EEPOhio State Harding HospitalColatris Work Phone: 1(178) 242-999011-25-2020 11:01-0500BMI (Body Mass Index)23.17 kg/m2 [facility], CB19-09-8572 11:01-0500Body ldpadk46.33 kg [facility], SD90-40-5508 11:01-0500BP Lcnlzrevl97 mm[Hg] [facility], CF06-75-1525 11:01-0500BP Xqpnhavn140 mm[Hg] [facility], FI70-34-7923 11:01-0500Pulse (Heart Rate)108 /min [facility], MH84-98-1463 10:59-0500BMI (Body Mass Index)23.38 kg/w4[facility]trMer[facility], WP79-70-4241 10:59-0500Body .88 kg [facility], YX49-95-3196 10:59-0500BP Uouqomyxt80 mm[Hg][facility], VN71-12-6769 10:59-0500BP Bpazipsi978 mm[Hg][facility], BZ93-24-4946 10:59-0500Pulse (Heart Rate)99 /[facility], XE71-33-9999 10:26-0400Body Tnpydnhikpa53.9 [degF][facility], AG50-57-6428 15:59-0400BP Cmmpiagpb942 mm[Hg][place], [place]:Dr Grupo RECIO notified 04-17-2020 15:59-0400BP Gchlqxku975 mm[Hg][place], [place] Comment on above:Dr Grupo RECIO atowooft65-43-8839 15:59-0400Pulse (Heart Rate)90 /[facility], FW88-45-3997 15:59-0400Pulse Pfkfkrwh41 %[facility], RS99-31-8772 15:59-0400Respiratory Rate18 /[facility], NP31-49-2614 11:55-0400BMI (Body Mass Index)23.21 kg/t1WcnrpwrgEpi [facility], LV28-13-5665 11:55-0400 Body Tizeaznbdkr01.29 [degF][facility], OJ12-42-7594 11:55-0400Body ubtemx99.42 kgJomansoor NullAultman Hospital, NY95-03-3423 07:15-0400Body Fkhcpoapead65.2 [degF][facility], QV11-34-3692 07:15-0400BP Frzijqavr77 mm[Hg][facility], CW28-09-6388 07:15-0400BP Vvgtmtgl984 mm[Hg][facility], WV57-77-1297 07:15-0400Pulse (Heart Rate)92 /[facility], BS55-32-6511 07:15-0400Pulse Muhysqsn65 %[facility], OT41-86-2876 07:15-0400Respiratory Rate16 /[facility], YL74-60-7666 03:45-0400BMI (Body Mass Index)23.51 kg/m3AlfcheMer[facility], [place] 04-06-2020 03:45-0400Body hqpweu80.19 [facility]StDo[facility], [place] 04-04-2020 07:36-1018Hdmyps674 [facility], WT80-20-1603 15:05-0400Body Umzsclsdbfq22.4 [degF]Nighat [facility], GS41-62-2219 11:08-0400Body Jhlpfbryrig03.1 [degF][facility], EZ62-89-3069 10:42-0400BMI (Body Mass Index)24.09 kg/m2[facility], [place] 11-07-2019 10:42-0400Body rpgbop39.69 kg[facility], [place] 11-07-2019 10:42-0400BP Vmirdghfp15 mm[Hg][facility], [place] 11-07-2019 10:42-0400BP Urpsqxaq06 mm[Hg]Shy [facility], [place] 11-07-2019 10:42-0400Pulse (Heart Rate)88 /[facility], [place] 07-13-2019 11:12-0500BMI (Body Mass Index)24.98 kg/m2[facility], JP64-19-4009 11:12-0500Body zochhz75.96 kg[facility], [place] 07-13-2019 11:12-0500BP Igknajvoy96 mm[Hg][facility], [place] 07-13-2019 11:12-0500BP Vhzhrmvq229 mm[Hg][facility] 07-13-2019 11:12-0500Pulse (Heart Rate)81 /[facility], [place] 05-30-2019 11:02-0400BMI (Body Mass Index)24.98 kg/k3LruasdjbV[facility], RF86-26-5795 11:02-0400Body kxpfon99.96 [facility] 05-30-2019 11:02-0400BP Ionmdaiqy03 mm[Hg][facility] 05-30-2019 11:02-0400BP Pbllcyya071 mm[Hg][facility] 05-30-2019 11:02-0400Pulse (Heart Rate)75 /[facility] 04-26-2019 11:25-0400BP Azxednkvy58 mm[Hg][facility], [place] 04-26-2019 11:25-0400BP Dfivunxr917 mm[Hg][facility], [place] 04-26-2019 11:25-0400Pulse (Heart Rate)76 /[facility], [place] 04-05-2019 10:56-0400BP Emqwkhyyd25 mm[Hg][facility] 04-05-2019 10:56-0400BP Wscgitqi753 mm[Hg][facility] 04-05-2019 10:56-0400Pulse (Heart Rate)84 /minChristen [place], [place] Encounters Encounter DateEncounter TypeCare ProviderFacilityStart: 06-13-2025 End: 00-35-6106ilyggextvpLGYW [facility]Start: 06-12-2025 End: 89-34-5277hycrhnfhsxJVMAVIB AMALIAMERCY HOSPITAL JOPLINLaura [facility] HospitalStart: 06-12-2025 End: 61-33-7131Npvzfklxti hospital [facility] by [facility] Schedule [facility] LABComment on above:Anemia due to stage 3 chronic kidney disease, 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)Start: 06-06-2025 End: 68-39-9782rqnvcxqlbzGRXU CARSON HAQUEИРИНАMICKYgustabobrissa [facility] HospitalStart: 06-06-2025 End: 44-11-5254Qhbqocjcpm hospital visit by physicianLong [facility] Med Onc Fast Track Chair 1 ScheduleE[facility] MED ONCComment on above:Anemia due to stage 3 chronic kidney disease, 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) (PrimaryDx)Start: 06-05-2025 End: 80-25-7798Insyhedia department patient visitBANNER [facility] CARSON SANDOVALgustabobrissa [facility] Emergency DepartmentComment on above:Bilateral leg edema (Primary Dx); Multiple contusionsStart: 05-30-2025 End: 60-88-8066uiuysguuflHVDI CARSON NADИРИНАMICKYgustabobrissa [facility] HospitalStart: 05-30-2025 End: 06-11-1504Wtzodfdhxv hospital visit by physicianLong [facility] Med Onc Fast Track Chair 1 ScheduleE[facility] MED ONCComment on above:Anemia due to stage 3 chronic kidney disease, 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) (PrimaryDx)Anemia due to stage 3 chronic kidney disease, 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)Start: 05-24-2025 End: 12-57-0925ymzzidcgrnAuxc Naderer MD Work Phone: [facility] Work Phone: Start: 05-24-2025 End: 15-91-5537Ufxcyod encounter procedureDouglas Will MD-[facility] Work Phone: Start: 05-23-2025 End: 93-80-6995zfmrvwyqbbCQHY CARSON Damianbrissa [facility] HospitalStart: 05-17-2025 End: 60-28-6354xstahslztdKMWQ CARSON [facility] HospitalStart: 05-16-2025 End: 62-21-6807hnvhrdkjnqMJQR CARSON Damianbrissa [facility] HospitalStart: 05-16-2025 End: 35-31-0259Iiusfpwpnt hospital visit by physicianLong [facility] Med Onc Chair 7 ScheduleMTHZ MED ONCComment on above:Anemia due to stage 3 chronic kidney disease, 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) (PrimaryDx)Start: 05-10-2025 End: 06-13-6172hqhmguouinSwif Naderer MD Work Phone: [facility] Work Phone: Start: 05-10-2025 End: 33-99-3953Jvkbrhq encounter procedureAtilio Wade MD-[facility] Work Phone: Start: 05-09-2025 End: 80-23-5046bxdjoxixnkWKCX CARSON [facility] HospitalStart: 05-09-2025 End: 01-97-8257Ayxokkvtek hospital visit by physicianLong [facility] Med Onc Fast Track Chair 1 ScheduleMT MED ONCComment on above:Anemia due to stage 3 chronic kidney disease, 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) (PrimaryDx)Start: 05-03-2025 End: 56-75-1529Yqwjyj Leandra Penn DO Work Phone: noms FNR PULMStart: 05-03-2025 End: 41-62-4654Liezmf Leandra Penn DO Work Phone: noms FNR PULMStart: 05-03-2025 End: 79-18-4601Nrxrvq outpatient visit 25 minutesTimothy Penn DO Work Phone: noms FNR PULMComment on above:Chronic obstructive pulmonary disease, unspecified COPD type (HCC); COPD, mild (HCC)Start: 05-03-2025 End: 62-75-7527pmlqncqdzxSSIZAB K STRACKNot AvailableStart: 05-02-2025 End: 43-61-5210suvygnnqimEGQEOMK [facility] HospitalStart: 05-02-2025 End: 25-66-0087Dcrboxzene hospital visit by physicianLong [facility] Laboratory Schedule [facility] LABComment on above:Normocytic anemia; KARLEE (acute kidney injury)Start: 04-26-2025 End: 61-75-6407Ztdxmtcdcu and management of inpatientMuj luisd Jacob Herrera MD Work Phone: stvz ORComment on above:A-fib (HCC) (Primary Dx); Atrial fibrillation, unspecified type (HCC); Presence of Watchman left atrial appendage closure deviceStart: 04-07-2025 End: 90-78-1789Lkuqttumj encounterDouglas Will MD Work Phone: NOXE CWM FMStart: 04-06-2025 End: 06-41-5855Qromiv flowsBong Will MD Work Phone: NODP CWM FMStart: 04-06-2025 End: 35-76-9918Ulqbtg flowsBong Will MD Work Phone: NOMC CWM FMStart: 04-06-2025 End: 00-68-6674Exqvyo outpatient visit 25 minutesDouglas Will MD Work Phone: noms CWM FMComment on above:CAD in [place] artery (Primary Dx); Lumbar spondylosis; Iron 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 dietary iron intake; Chronic heart failure with preserved ejection fraction (HFpEF) (HCC); Severe protein-calorie malnutrition (HHS-HCC); SOB (shortness of breath)Start: 04-06-2025 End: 29-81-0160izvvbbzuyrEMGZ NADERERNot AvailableStart: 03-31-2025 End: 60-34-8962Ybtkyhgl Result EncounterDouglas Will MD Work Phone: noms External Department UnsolicitedStart: 03-31-2025 End: 21-90-9625Lctbghuz Result EncounterDouglas Will MD Work Phone: noms External Department UnsolicitedStart: 03-22-2025 End: 15-35-1618Yfigdebvp Result EncounterGeneric External Data ProviderNOMS External Department UnsolicitedStart: 03-22-2025 End: 96-86-6727Cgodnuzdh Result EncounterGeneric External Data ProviderNOMS External Department UnsolicitedStart: 03-21-2025 End: 62-21-0880Ncvghoeobq and management of inpatientMark Aston Reardon MD Work Phone: mthz [facility]ENTERU MED SURGComment on above:KARLEE (acute kidney injury) (Primary Dx); Elevated troponin; Injury of head, initial encounter; Frequent falls; Shortness of breathStart: 03-20-2025 End: 49-60-3516Geujfwvta department patient visitAshish Bhandari MD Work Phone: [facility] Emergency DepartmentComment on above:Skin tear of left lower leg without complication, initial encounter (Primary Dx); Elevated brain natriuretic peptide (BNP) level; Anemia, unspecified type; COPD exacerbation (HCC)Start: 03-20-2025 End: 69-71-5795stwjbpurpdHFCE ANTHONY [facility] HospitalStart: 06-11-1242xnkmfjokfeEDGY CARSON [facility] HospitalStart: 03-08-2025 End: 80-78-5448Rfhyge Leandra Penn DO Work Phone: noms FNR PULMStart: 03-08-2025 End: 33-71-3487Ckztid Leandra Penn DO Work Phone: noms FNR PULMStart: 03-08-2025 End: 94-25-6229Yllzzg outpatient new 60 minutesTimothy Penn DO Work Phone: noms FNR PULMComment on above:Chronic obstructive pulmonary disease, unspecified COPD type (HCC); SOB (shortness of breath)Start: 03-08-2025 End: 30-81-6973asbdcllzzcOKIJJA K STRACKNot AvailableStart: 03-06-2025 End: 32-92-1086Cqytln flowsheetAlison Newton Toney PA Work Phone: NOPG TSR DERMStart: 03-06-2025 End: 58-96-5556Vpkxou flowsheetAlison L Dawna PA Work Phone: noms TSR DERMStart: 03-02-2025 End: 14-81-4947dvtvgvznqpIAGQGriselda Gray [facility] Hospitaltart: 02-21-2025 End: 41-08-6631fheiuowaziQTESSAP J MEYERNot AvailableStart: 02-21-2025 End: 51-13-8634Qdhiia flowsYossi RECIO Work Phone: noms FB ORTHOPAEDICSStart: 02-21-2025 End: 82-52-1628Gefwpd Sara RECIO Work Phone: noms FB ORTHOPAEDICSStart: 02-21-2025 End: 13-40-4096Jzuwds outpatient visit 15 minutesMahailey RECIO Work Phone: noms FB ORTHOPAEDICSComment on above:History of right knee joint replacement (Primary Dx); Acute pain of right kneeStart: 02-20-2025 End: 66-79-1117Wzlssv Pj Will MD Work Phone: NOND CWM FMStart: 02-20-2025 End: 28-15-1179Gsxjni Pj Will MD Work Phone: NOBM CWM FMStart: 02-20-2025 End: 52-96-0211Zemwcw outpatient visit 25 minutesDouglas Will MD Work Phone: [facility] FMComment on above:SOB (shortness of breath) (Primary Dx); CAD in [place] artery ; Chronic obstructive pulmonary disease, unspecified COPD type (HCC); Iron 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 dietary iron intake; MDD (major depressive disorder), recurrent episode, moderate ([facility]); Orthostatic hypotensionStart: 02-20-2025 End: 05-78-4968gwdblysrukLNKL Paul AvailableStart: 02-16-2025 End: 73-28-4185zpavygeyeiVFRJ CARSON SANDOVALChildren[facility] Hospital for Rehabilitation HospitalStart: 02-16-2025 End: 79-91-7742Iwpcwavlxc hospital visit by Jennifer Will MD Work Phone: [facility] LABComment on above:Normocytic anemiaStart: 02-16-2025 End: 04-40-1438Eplcbmesu Result EncounterGeneric External Data ProviderNOTX External Department UnsolicitedStart: 02-16-2025 End: 71-62-8329Dowypxyyk Result EncounterGeneric External Data ProviderNOTX External Department UnsolicitedStart: 02-13-2025 End: 17-06-4554osmumjomwhSLEP CARSON [facility]ITALИРИНАBarn[facility] HospitalStart: 02-13-2025 End: 91-86-4370Dpvalmlqkd hospital visit by Jennifer Will MD Work Phone: [facility] LABComment on above:SOB (shortness of breath) on exertionStart: 02-13-2025 End: 59-76-0873Htswwwlni Result EncounterGeneric External Data ProviderNOTX External Department UnsolicitedStart: 02-13-2025 End: 49-64-5171Ydczulgen Result EncounterGeneric External Data ProviderNOTX External Department UnsolicitedStart: 02-09-2025 End: 58-28-6046Rdppvk outpatient visit 25 minutesBerenice Rudolph APRN-TOWERMAN Work Phone: [facility] Medical CenterComment on above: Gastroesophageal reflux disease, unspecified whether esophagitis present (Primary Dx); Dysphagia, unspecified type; Status post insertion of percutaneous endoscopic gastrostomy (PEG) tube (Multi) Start: 01-26-2025 End: 60-08-5711mchgdowvpaIQHVQANH D [facility] Hospitaltart: 01-24-2025 End: 78-44-4367Hmzfisivd Result EncounterDouglas Will MD Work Phone: noms External Department UnsolicitedStart: 01-24-2025 End: 38-91-6271Zhnizzqgx Result EncounterDouglas Will MD Work Phone: noms External Department UnsolicitedStart: 01-24-2025 End: 66-92-2859Ulcdmm OnlyDouglas Will MD Work Phone: noms CWM FMComment on above:Restless leg syndrome Start: 01-13-2025 End: 18-04-5992Ajvgqafcv encounterCapri Matthews APRN-TOWERMAN Work Phone: [facility] HospitaloStart: 01-13-2025 End: 97-15-3765Vhfynu outpatient visit 5 minutesJosette RECIO Work Phone: [facility]/Trauma and Adult ReconstructionComment on above:Age-related osteoporosis without current pathological fracture (Primary Dx)Start: 01-13-2025 End: 03-03-0791dtxspftvuyWJHJ NADERESelect Medical Specialty Hospital - Youngstowntart: 01-12-2025 End: 81-18-9533Gppzbg outpatient visit 25 minutesDouglas Will MD Work Phone: noms CWM FMComment on above:SOB (shortness of breath) (Primary Dx); Severe protein-calorie malnutrition (CMS/HCC); Chronic heart failure with preserved ejection fraction (HFpEF) (CMS/HCC); CAD in [place] artery (CMS/HCC); Adult hypothyroidism (CMS/HCC); Chronic obstructive pulmonary disease, unspecified COPD type (CMS/HCC); Encounter for long-term 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 medication; Iron 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 dietary iron intake; CKD stage 3a, GFR 45-59 ml/min (CMS/HCC)Start: 01-12-2025 End: 58-79-7390xxqjnzucebKZXM NADERERNot AvailableStart: 01-04-2025 End: 12-52-3664Trxcek Rickey Will MD Work Phone: noms CWM FMComment on above:Chronic obstructive pulmonary disease, unspecified COPD type (CMS/HCC) (Primary Dx)Start: 01-03-2025 End: 69-46-8168Oaximz Rickey Will MD Work Phone: noms CWM FMComment on above:Chronic obstructive pulmonary disease, unspecified COPD type (CMS/HCC) (Primary Dx); SOB (shortness of breath)Start: 09-55-8455yraiwnvwshFMHK NADKettering Health Prebletart: 12-23-2024 End: 72-96-5748Hrqwcq Pj Will MD Work Phone: noms CWM FMStart: 12-23-2024 End: 50-26-7581Ognfdi Pj Will MD Work Phone: noms CWM FMStart: 12-23-2024 End: 15-83-4242Pmxjucwb Result EncounterDouglas Will MD Work Phone: noms External Department UnsolicitedStart: 12-23-2024 End: 77-91-3953Irmkczeawdwh care manage srvc 7 day dischargeDouglas Will MD Work Phone: noms CWM FMComment on above:Iron 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 dietary iron intake (Primary Dx); Hypoalbuminemia; SOB (shortness of breath); Paroxysmal atrial fibrillation (CMS/HCC)Start: 12-23-2024 End: 71-86-7531eltiyirypaJWFQ NADERERNot AvailableStart: 31-86-8753bcgffuqyfk MARC [facility] Hospitaltart: 12-16-2024 End: 60-38-9881Jwxeht Jorge WHITTAKER Work Phone: [facility] - Wound CareStart: 12-15-2024 End: 58-12-3871Thakyz Jorge Cevallos TRANSFORMER SHOP SUPERVISOR-TOWERMAN Work Phone: [facility] Wound Care Outpatient Comment on above:Non-pressure chronic ulcer left lower leg, 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) (Primary Dx)Start: 12-14-2024 End: 44-68-2983Qauwhk Jorge Cevallos TRANSFORMER SHOP SUPERVISOR-TOWERMAN Work Phone: [facility]ound [facility] ClinicStart: 12-13-2024 End: 58-07-0546Wuietxjxog and management of inpatientFort Hamilton Hospitaltart: 12-13-2024 End: 76-90-5419Obdwxv outpatient visit 25 minutesDouglas Will MD Work Phone: noms CWM FMComment on above:Orthostatic hypotension (Primary Dx); Chest pain, unspecified type; SOB (shortness of breath)Start: 12-13-2024 End: 69-26-8188uocavswtmxJHRR NILESHERERNot AvailableStart: 12-13-2024 End: 76-07-7368Hhtbdyupg encounterSalf WEEKSAProMedica Physicians Pulmonary/Sleep MedicineStart: 12-12-2024 End: 30-96-7430wtaunfdbmkTTHIFort Hamilton Hospitaltart: 12-09-2024 End: 54-74-6583Sksrpemhi encounterMay Gale CMAProMedica Physicians Pulmonary/Sleep MedicineStart: 12-09-2024 End: 04-15-9037Wxtxqurip department patient visitFort Hamilton Hospitaltart: 12-08-2024 End: 15-30-9307dbpsgiycydZTPJLima City Hospitaltart: 12-08-2024 End: 72-03-7332Mwzjkoff Result EncounterDouglas Will MD Work Phone: noms External Department UnsolicitedStart: 12-08-2024 End: 71-19-3033Pjbpnorz Result EncounterDouglas Will MD Work Phone: noms External Department UnsolicitedStart: 12-07-2024 End: 02-21-5595Plybrg flowsBong Will MD Work Phone: noms CWM FMStart: 12-07-2024 End: 83-60-2499Ynmabf Pj Will MD Work Phone: noms CWM FMStart: 12-07-2024 End: 10-29-9312Wpignn outpatient visit 15 minutesDouglas Will MD Work Phone: noms CWM FMComment on above:Medicare annual wellness visit, subsequent (Primary Dx); Adult hypothyroidism (CMS/HCC); Encounter for long-term 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 medication; Essential hypertension, benign (CMS/HCC); Prediabetes; Open wound of left lower leg, subsequent encounter; CAD in [place] artery (CMS/HCC); Restless leg syndrome; Hiatal hernia with gastroesophageal refluxStart: 12-07-2024 End: 41-64-6460Dwkfoyv encounter procedureDouglas Will MD Work Phone: [facility] Work Phone: Start: 12-07-2024 End: 01-14-1096kfbpchktgsAWGJ NADERERNot AvailableStart: 12-01-2024 End: 35-02-3452FcaktmQhit Naderer MD Work Phone: noms CWM FMComment on above:CAD in [place] artery (CMS/HCC)Start: 11-30-2024 End: 65-26-2119Osnbda flowsheetMeagansa Taylahkylez MANAGER BEHAVIOR Work Phone: NORH CWM FMStart: 11-30-2024 End: 15-21-0812Pmspdd flowsheetLisa Aichholz MANAGER BEHAVIOR Work Phone: NOMS CWM FMStart: 11-30-2024 End: 57-98-2506Fzxhju outpatient visit 15 minutesLisa Bernal MANAGER BEHAVIOR Work Phone: NOJK CWM FMComment on above:Open wound of left lower leg, subsequent encounter (Primary Dx)Start: 11-30-2024 End: 14-16-8148mgdqjwlrokUZHO Apple AvailableStart: 11-29-2024 End: 63-46-0102hldtyurfkkTotxdapbvMount St. 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); Penetrating ulcer of aorta (CMS-HCC); Intramural hematoma of thoracic aorta (CMS-HCC); Pulmonary embolism, unspecified chronicity, unspecified pulmonary embolism type, unspecified whether acute cor pulmonale present (CMS-HCC)Start: 10-10-2024 End: 84-64-4644RldjmqSdpu Naderer MD Work Phone: noms CWM FMComment on above:Primary osteoarthritis of both kneesStart: 09-19-2024 End: 03-52-9837Lmvfovjvc encounterMoalice Higgins MD Work Phone: [facility] Jobst VascularStart: 08-25-2024 End: 17-30-0916Kbiqfqgav encounterMay Gale CMAProMedica Physicians Pulmonary/Sleep MedicineStart: 08-19-2024 End: 82-14-1554Aempidqgy encounterAlecosta KirkpatrickProMedica Physicians Orthopedics/Trauma and Adult ReconstructionStart: 07-30-2024 End: 47-04-7044pbdwjmcxkrMUUT NADERERProMedica [facility]stone HospitalStart: 07-29-2024 End: 56-29-3261cagmzawpluUAFZ NADERERProMedica Robertson HospitalStart: 07-21-2024 End: 45-84-9537wuiqscdtjuTSRWXG W TSANGProMartins Ferry Hospital HospitalStart: 07-13-2024 End: 76-57-2634itcuoefzepIHACGHJ F OSMANProMartins Ferry Hospital HospitalStart: 07-08-2024 End: 29-00-3685Kkrpstwkl Result EncounterGeneric External Data ProviderNOMS External Department UnsolicitedStart: 07-08-2024 End: 13-45-5376Ktgeuhmgh Result EncounterGeneric External Data ProviderNOMS External Department UnsolicitedStart: 07-08-2024 End: 04-60-9614gxnnxbxolgPDJO CARSON [facility] HospitalStart: 07-08-2024 End: 06-19-4254Icowgodirr hospital visit by physicianDouglas Will MD Work Phone: mthz LaboratoryComment on above:Lightheaded; Dizziness; SOB (shortness of breath); Chest discomfort; Dissection of aorta, unspecified portion of aorta ([facility]); ASHD (arteriosclerotic heart disease); S/P angioplasty with stent; Chronic anticoagulation; Dysautonomia orthostatic hypotension syndrome; Chronic diastolic congestive heart failure ([facility]); History of DVT (deep vein thrombosis); Cardiac pacemaker in situ; Essential hypertension; History of chest pain; PAF (paroxysmal atrial fibrillation) ([facility])Start: 07-05-2024 End: 63-97-4085lpibqieycoMSIUANE K BAUERMercy Health St. [facility] HospitalStart: 06-29-2024 End: 01-82-2212hrdlcafltgVQOANavarro [facility] HospitalStart: 06-16-2024 End: 96-86-9886yllwotooddHOPINavarro Regional Hospital HospitalStart: 06-16-2024 Encounter for other specified special examinationsMercyOne [facility] HospitalStart: 06-06-2024 End: [id number] OnlyDouglas Will MD Work Phone: [facility] FMComment on above:Vertigo (Primary Dx); Restless leg syndromeStart: 06-03-2024 End: [id number] flowsheetAlison L Dawna PA Work Phone: [facility] DERMStart: 06-03-2024 End: 32-22-3012Jjnqvk flowsheetAlison L Dawna PA Work Phone: [facility] TSR DERMStart: 06-03-2024 End: 75-01-7846Dbpmme outpatient visit 15 minutesAlison L Dawna PA Work Phone: [facility] TSR DERMComment on above:Allergic reaction to drug, subsequent encounter (Primary Dx); Encounter for removal of suturesStart: 06-03-2024 End: 04-01-7433iliftfhyauFSZZBL L WINANSNot AvailableStart: 05-30-2024 End: 24-05-8302jxtswicqshJHVRNGowanda State Hospital AmbulatoryStart: 05-30-2024 End: 42-51-8945Bqccka outpatient visit 25 minutesNolan Julio MD MPH Work Phone: [facility] Medical CenterComment on above:Dysphagia, unspecified type (Primary Dx); Achalasia of cardiaStart: 05-24-2024 End: 38-23-5135Sxielm flowsheetAlison L Dawna PA Work Phone: [facility] TSR DERMStart: 05-24-2024 End: 10-56-3072Mhmtjl flowsheetAlison L Dawna PA Work Phone: [facility] TSR DERMStart: 05-24-2024 End: 42-14-4862Gmdoqpc encounter procedureAlison L Dawna PA Work Phone: [facility] TSR DERMComment on above:Rash and other nonspecific skin eruption (Primary Dx)Start: 05-24-2024 End: 80-46-0047cfhjnzctyxPMUBBE L WINANSNot AvailableStart: 04-11-2024 End: 40-49-9951Zopgee outpatient visit 25 minutesNolan Julio MD MPH Work Phone: [facility] Medical CenterComment on above:Achalasia of cardia (Primary Dx); Dysphagia, unspecified typeStart: 04-11-2024 End: 55-56-9532tdkyhqomveNAJZWNortheast Health System AmbulatoryStart: 04-07-2024 End: 96-86-6543Vkqdvt Pj Will MD Work Phone: NOHH CWM FMStart: 04-07-2024 End: 86-42-3723Ucdqpu Pj Will MD Work Phone: NOIY CWM FMStart: 04-07-2024 End: 32-15-9385Uwsaio outpatient visit 25 minutesDouglas Will MD Work Phone: noms CWM FMComment on above:Severe protein-calorie malnutrition (CMS/HCC) (Primary Dx); Diarrhea, unspecified type; Lumbar spondylosis; DysphasiaStart: 03-28-2024 End: 81-90-5303Hfgpzumnwf and management of [facility] Work Phone: Comment on above:Dysphagia, unspecified type (Primary Dx); Gastroesophageal reflux disease, unspecified whether esophagitis present; Lightheadedness; Status post insertion of percutaneous endoscopic gastrostomy (PEG) tube (Multi) Start: 03-28-2024 End: 23-36-1431Vwzghg outpatient visit 40 minutesNolan Julio MD MPH Work Phone: [facility] Medical CenterComment on above:Bariatric surgery status; Preoperative clearance; Gastroesophageal reflux disease, unspecified whether esophagitis presentStart: 03-28-2024 End: 90-27-4463Uhcgclepjwba Elliot Julio MD MPH Work Phone: [facility] Work Phone: Start: 03-28-2024 End: 77-08-5935ueibflrgvhGEYYLGowanda State Hospital AmbulatoryStart: 03-08-2024 End: 93-50-7696lqdsymyzhmYSIOANP K BAUERProMedica Robertson HospitalStart: 24-39-0334Qtvserkxg for other specified special examinationsCAPRI MATTHEWS ProMedicjacob [facility] Village HospitalStart: 88-75-4846mnupvdwuvaBcvuc M. LueFacility:EU [place]uskyStart: 01-20-2024 End: 16-32-0382Kzkwigerds and management of inpatientMARC BUDDYRPCarlos [facility] Medical Centertart: 25-82-8872otfdjlbixgDCGMLKL [facility] Ambulatory PPGStart: 12-17-2023 End: 00-95-8898Gziudqdezr hospital visit by Jany Simon [address] RadiologyComment on above:History of chest pain; ASHD (arteriosclerotic heart disease); S/P angioplasty with stent; PAF (paroxysmal atrial fibrillation) ([facility]); Dysautonomia orthostatic hypotension syndrome; Chronic diastolic congestive heart failure ([facility]); History of DVT (deep vein thrombosis); Cardiac pacemaker in situ; Essential hypertensionStart: 12-14-2023 End: 07-03-0096bcmoqbodbvVJMBCWHOhioHealth [facility]ady [facility] Ambulatory PPG Start: 11-24-2023 End: 47-20-7058alrbuzxwglPXCCABM PROVIDERFacility:METROHealthStart: 06-19-2023 End: 85-05-1316vtibfcyolhJzjcr M. LueFacility:EU [place]kyStart: 06-19-2023 End: 63-99-8040Hbgywji encounter David Lacy [facility] Start: 06-11-2023 End: 83-20-6789ezuxaqzqwcOpwkkpqr Rohrbacher Other [place] [employer] Other Start: 97-46-0138Apnbnl outpatient new 20 minutes Inessa [facility] ClydeStart: 04-30-2023 End: 22-05-5482Scjckwklxn hospital visit by Arabella Brvao [facility] Medication ManagementComment on above: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 (Primary Dx); Coronary artery disease, unspecified vessel or lesion type, unspecified whether angina present, unspecified whether [place] or transplanted heart; History of pulmonary embolus (PE); MTHFR mutationStart: 04-20-2023 End: 19-55-2479Nbwgsznav department patient visitEvelynyahaira Reeves [facility]ertart: 04-20-2023 End: 87-74-2407Pczjlixvy department patient visitMD Douglas Will Work Phone: [facility] Work Phone: Start: 02-10-2023 End: 10-42-4282Kgfsdxmoai hospital visit by Royce Bazzi [facility] Work Phone: [facility] Outcome Referrals [place] Medication ManagementComment on above: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 (Primary Dx); History of pulmonary embolus (PE); MTHFR mutationStart: 02-10-2023 End: 71-92-7709Apsusozvz department patient visitDaniel Araiza MD Work Phone: [facility] EDComment on above:Skin tear of left elbow without complication, initial encounter (Primary Dx)Start: 02-03-2023 End: 46-51-2159Xquzrrjnkv hospital visit by Royce Bazzi [facility] Work Phone: [facility] Outcome Referrals [place] Medication ManagementComment on above: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 (Primary Dx); History of pulmonary embolus (PE); MTHFR mutationStart: 02-02-2023 End: 10-99-1915bpkebsbstyKwjdch W RICEFacility:EU [place]kyStart: 02-02-2023 End: 89-88-1554Wiscjep encounter procedureRobert W RICE [facility] Start: 01-19-2023 End: 27-80-6370Lacrvdzkbm hospital visit by Royce Bazzi [facility] Work Phone: [facility] Outcome Referrals [place] Medication ManagementComment on above: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 (Primary Dx); History of pulmonary embolus (PE); MTHFR mutationStart: 12-23-2022 End: 71-04-4472Twfaqadfgw hospital visit by Arabella Bravo [facility]OSPITALbecoacht GmbH [employer]ch[employer]urufin Medication ManagementComment on above: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 (Primary Dx); Coronary artery disease, unspecified vessel or lesion type, unspecified whether angina present, unspecified whether [place] or transplanted heart; History of pulmonary embolus (PE); MTHFR mutationStart: 12-10-2022 End: 21-01-6328bklgwrnzpgWSJBZ DECAPUAFacility:[facility] Hospitaltart: 12-10-2022 End: 26-80-6503Gxgrove encounter procedureTresami Jean MD Work Phone: OrthopaedicsComment on above: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)Start: 12-10-2022 End: 00-54-1714Rnqcuybuhf hospital visit by Sterling [facility] [place] Work Phone: RadiologyComment on above:S/P revision of total knee, left [Z96.652]Start: 12-08-2022 End: 10-36-7099Ctjfyfclkf hospital visit by Deneen Osuna [facility]OSPITALbecoacht GmbH [place] Medication ManagementComment on above: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 (Primary Dx); History of pulmonary embolus (PE); MTHFR mutationStart: 12-01-2022 End: 62-37-4973ezmyvxraroOourgs W RICEFacility: NormadinubayStart: 12-01-2022 End: 54-17-7496Ipwiaus encounter procedureIsauro ARCHULETA [facility] Start: 11-24-2022 End: 03-26-1537Wnwnvqpawx hospital visit by Royce Bazzi [facility] Work Phone: [facility] HealthcareAny[facility] Medication ManagementComment on above: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 (Primary Dx); History of pulmonary embolus (PE); MTHFR mutationHistory of DVT (deep vein thrombosis); Pain of left calfStart: 07-02-2022 End: 75-68-0604Dsfhlux encounter procedureNguyễn Jean MD Work Phone: OrthopaedicsComment on above:Numbness and tingling of right leg (Primary Dx); Status post revision of total replacement of right kneeStart: 07-02-2022 End: 79-70-3939Pwuswgvkgn hospital visit by physicianAlfred [facility] [place] Work Phone: RadiologyComment on above:Infection associated with internal right knee prosthesis, 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]Start: 06-30-2022 End: 21-09-7363Subjrbqokb hospital visit by Royce Bazzi [facility] Work Phone: [facility] Outcome Referrals [place] Medication ManagementComment on above: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 (Primary Dx); History of pulmonary embolus (PE); MTHFR mutationStart: 06-13-2022 End: 35-86-3094Jdekiogtb department patient visitBANNER [facility] A [facility] Centertart: 06-12-2022 End: 97-58-0983Hnlnqyrosm hospital visit by Deneen Osuna [facility] HOSPITALEvoTronixfin Medication ManagementComment on above: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 (Primary Dx); History of pulmonary embolus (PE); MTHFR mutationStart: 96-35-3043Dnymsjbfr encounterShanelle Cid MD Work Phone: Infectious DiseaseComment on above:Appointment (manoj removal )Start: 06-04-2022 End: 43-17-1178Pvfiwxlqfv hospital visit by Deneen Osuna [facility] HOSPITALEvoTronixfin Medication ManagementComment on above: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 (Primary Dx); History of pulmonary embolus (PE); MTHFR mutationStart: 97-58-1205Ebetqsy UpdateShanelle Cid MD Work Phone: Infectious DiseaseComment on above:Hold CoPat; Lab OrdersStart: 81-32-7260Pmfuuwppl Stella Cid MD Work Phone: Infectious DiseaseComment on above:Patient Update Start: 53-28-3491GrtzfeXymru D Decapua PA-C Work Phone: OrthopaedicsComment on above:Refill RequestStart: 05-21-2022 End: 21-64-8147Iwbxbfe encounter procedureNguyễn Jean MD Work Phone: OrthopaedicsComment on above: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)Start: 05-21-2022 End: 97-25-2817Manwbezzny hospital visit by physicianAlfred [facility] [place] Work Phone: RadiologyComment on above:Infection associated with internal right knee prosthesis, 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]Start: 05-19-2022 ambulatoryShanelle Cid MD Work Phone: Infectious DiseaseComment on above:Outside Labs Results (Copat/)Start: 05-19-2022 End: 82-15-9335Cmktihqmwo hospital visit by Jennifer Will MD Work Phone: mthz LaboratoryStart: 05-15-2022 End: 94-88-8671Ytxlnxrysx hospital visit by Deneen Schneider Pierron [facility] [place] Medication ManagementComment on above: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 (Primary Dx); History of pulmonary embolus (PE); MTHFR mutationStart: 35-60-8178Nambla Poli Thompson RNInfectious Disease Comment on above:Infection of prosthetic joint, subsequent encounter (Primary Dx)Start: 33-89-1996lbflqnjduxDswx Babic MD Work Phone: Infectious DiseaseComment on above:CoPat AgencyStart: 69-73-0030bvjujwwigkEwbt Babic MD Work Phone: INFD HOSPComment on above:CoPat StartStart: 04-30-2022 Telephone encounterFinancial Navigator Jose G Work Phone: Hematology/OncologyComment on above:Benefits InvestigationStart: 04-30-2022 End: 78-07-4685nifrywidpxCmqta 12 Joann Work Phone: Hematology/OncologyComment on above:Iron deficiency anemia, unspecified iron deficiency anemia type (Primary Dx)Start: 04-29-2022 Telephone encounterTresami Jean MD Work Phone: OrthopaedicsComment on above:Patient Question (Patient is wondering if she needs to have a covid test before her procedure on the , however there is no covid order put through so the call center called to double check but patient hung up on both of us, needs a call back to inform her if she needs a covid test or not)Start: 04-28-2022 End: 77-21-7601lxdqspuhibSclyz 10 Joann Work Phone: Hematology/OncologyComment on above:Iron deficiency anemia, unspecified iron deficiency anemia type (Primary Dx)Start: 04-25-2022 Telephone encounterShelli Avalos WHematology/OncologyComment on above:Social Work ServicesStart: 04-24-2022 End: 96-27-7259mdwxchbjxpIgtyv 10 Joann Work Phone: Hematology/OncologyComment on above:Preop examination; Infection associated with internal right knee prosthesis, subsequent encounter; Iron deficiency anemia, unspecified iron deficiency anemia typeStart: 04-24-2022 End: 12-11-3433Gczhksimmepjt examination doneChair Joann Work Phone: Hematology/OncologyStart: 04-14-2022 End: 90-77-7423Fobcnoa encounter procedureRobert Argenis ARCHULETA [facility] [place] Start: 04-02-2022 End: 11-43-9114Vrhridhcun hospital visit by physicianKarsten Dyer MD Work Phone: mthz [facility] MED SURGComment on above:PAF (paroxysmal atrial fibrillation) (HCC); Essential hypertensionStart: 04-02-2022 End: 25-62-2966Ppatkgrrdl hospital visit by Deneen Osuna [facility] Centerfin Medication ManagementComment on above: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 (Primary Dx); History of pulmonary embolus (PE); MTHFR mutationStart: 03-31-2022 End: 73-25-2929Dabqehp encounter procedureNguyễn Jean MD Work Phone: OrthopaedicsComment on above:S/P revision of total knee, right (Primary Dx)Start: 02-12-2022 End: 17-60-1400ngikbkembuKKNZ A NADERERFacility:[facility] HospitalStart: 02-11-2022 End: 68-23-2272Wbjqixboxr hospital visit by Royce Bazzi [facility] Work Phone: [facility] HealthcarePointBurstfin Medication ManagementComment on above: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 (Primary Dx); History of pulmonary embolus (PE); MTHFR mutationStart: 19-15-2550Wtjfxi Drew Stephens PA-C Work Phone: OrthopaedicsComment on above:Knee pain, unspecified chronicity, unspecified laterality (Primary Dx)Start: 02-06-2022 End: 05-60-4356Xokulzw encounter procedureJorge Wilson MD Work Phone: Spine InstituteComment on above:Spinal stenosis of lumbar region, unspecified whether neurogenic claudication present; Lumbar radiculopathy, chronic; Spinal stenosis of lumbar region with neurogenic claudicationStart: 01-29-2022 End: 79-33-3340Lbffakufgb hospital visit by Royce Bazzi [facility] Work Phone: [employer] Medication ManagementComment on above: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 (Primary Dx); History of pulmonary embolus (PE); MTHFR mutationStart: 01-28-2022 End: 65-29-5762Hkuzhjg encounter procedureIsauro ARCHULETA [facility] Start: 22-74-1480Ubhnjd outpatient visit 40 minutes Epi Andrews Work Phone: [phone]-Umtdskp-[facility] [address] Work Phone: Start: 84-80-6008Poitkzd encounter procedureTaylormansoor Navarro Darryl Work Phone: [phone]-Frkfmhr-[facility] [address] [place] Work Phone: Start: 01-14-2022 End: 42-53-4628luvkgeolymGW DOUGLAS GOODWINRFacility:D7Canpd: 01-01-2022 End: 12-51-7159Kkgmbgzkpp hospital visit by physicianNighat Bazzi [facility] Work Phone: [facility] Medication ManagementComment on above: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 (Primary Dx); History of pulmonary embolus (PE); MTHFR mutationStart: 12-31-2021 End: 99-64-4665Vvrplow encounter procedureMD Douglas Will Work Phone: [facility]-CT Scan Main [place] Start: 45-54-5834Npknimqab encounterSyumi Amato DO Work Phone: Spine InstituteComment on above:ResultsStart: 78-79-4766fovzfjzqvxZZGK A NADERERFacility:[facility] Centertart: 12-30-2021 End: 27-40-5524Kwwirjgqcl hospital visit by physicianAlfred Holguin Work Phone: [facility] Radiology GeneralComment on above:Spinal stenosis of lumbar region, unspecified whether neurogenic claudication present [M48.061]Spinal stenosis of lumbar region with neurogenic claudication [M48.062] Start: 12-30-2021 End: 12-16-4318Qhibtfc encounter procedureSyumi Amato DO Work Phone: Spine InstituteComment on above:Spinal stenosis of lumbar region, unspecified whether neurogenic claudication present (Primary Dx); Lumbar radiculopathy, chronic; Pain in left wrist; Spinal stenosis of lumbar region with neurogenic claudicationStart: 12-23-2021 End: 61-99-8719Srpmuov encounter procedureRobmei ARCHULETA [facility] Joann Start: 89-81-6734YQUQTEtcqfxyn Melanie Darryl Work Phone: [phone]-Qwuozexfxgwvvl-[facility] Work Phone: Start: 11-27-2021 End: 36-27-4146Ngoxhjo encounter procedureCast Tech [facility] Indp Work Phone: OrthopaedicsComment on above:Acute pain of right knee (Primary Dx)Start: 11-27-2021 End: 58-31-1612Nsfyuaw encounter procedureTresami Jean MD Work Phone: OrthopaedicsComment on above: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)Start: 11-27-2021 End: 89-88-8530Eojcbvovva hospital visit by physicianAlfred [facility] [place] Work Phone: RadiologyComment on above: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 [Z96.659]Start: 11-25-2021 End: 77-80-8664Jakrjnfzru hospital visit by Deneen Osuna etriggfin Medication ManagementComment on above: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 (Primary Dx); History of pulmonary embolus (PE); MTHFR mutationStart: 60-76-1636ttvihppjumONET [facility] HospitalStart: 07-09-2021 End: 43-60-5882Gwasfla encounter procedureMD Douglas Will Work Phone: [facility]-Pacemaker CheckStart: 07-08-2021 End: 64-44-1514Kufdtnmugz hospital visit by Deneen Osuna [employer] Medication ManagementComment on above: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 (Primary Dx); History of pulmonary embolus (PE); MTHFR mutationStart: 07-04-2021 End: 82-78-9189Tdfdxestjn hospital visit by physicianAlfred [facility] [place] Work Phone: RadiologyComment on above:S/P revision of total knee, right [Z96.651]Start: 50-25-1169Gjtdmo outpatient visit 15 minutesEpi Andrews Work Phone: [phone]-Albwyqm-[facility] [address] [place] Work Phone: Start: 07-01-2021 End: 60-16-6785Mdorhzobup hospital visit by Sada Andrews Work Phone: mt LaboratoryStart: 56-63-5046Otdkkor encounter procedureTaylormansoor Melanie Houston Work Phone: [phone]-Kszrzaf-[facility] Work Phone: start: 05-09-2021 End: 10-43-2541Bhokiciudn hospital visit by Deneen Osuna [facility] at UniversityColatris Jese Medication ManagementComment on above: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 (Primary Dx); History of pulmonary embolus (PE); MTHFR mutationStart: 00-70-0461Csmuv UpdateEpi Melanie Darryl Work Phone: [phone]-Kkivkfmpbtabat-[place] Work Phone: Start: 20-09-2998Lxfxtmr tobacco non-user cad cap copd pv dmEpi Andrews Work Phone: [phone]-Ufgrcqrmhaekircu-[facility] [address] Work Phone: start: 03-19-2021 End: 81-00-8097Hxtdyxrgzn hospital visit by Deneen Osuna [facility]OSPITALEvoTronixfin Medication ManagementStart: 03-18-2021 End: 12-36-2749dkilhlfutzME DOUGLAS A NADERERFacility:S2Dlagv: 03-14-2021 End: 15-54-5202scsoigaxqfVQ DOUGLAS A NADERERFacility:J2Rouxv: 30-53-0377Toepfk outpatient visit 25 minutesEpi Andrews Work Phone: [phone]-Pweyaexagbnjby-[employer] Work Phone: Start: 22-34-6386Wihgezd encounter procedureEpi Andrews Work Phone: [phone]-Jyjwqpyqwwfwta-[place] Work Phone: Start: 02-20-2021 End: 20-74-5717Zbscaxsyti hospital visit by Arabella Bravo [facility] Medication ManagementComment on above: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 (Primary Dx); Coronary artery disease, unspecified vessel or lesion type, unspecified whether angina present, unspecified whether [place] or transplanted heart; History of pulmonary embolus (PE); MTHFR mutationStart: 40-60-4381RNOXBEszwzbaj F Diller Work Phone: [phone]-IvizlcrjlkeketVibra Hospital Of Central Dakotas [address] Work Phone: Start: 90-18-3325Ilgyh UpdateEpi Andrews Work Phone: [phone]-Gtbtyaofokohib-Debbie Work Phone: Start: 13-31-6118Rbrozm outpatient visit 25 minutes Epi Andrews Work Phone: [phone]-Htazjmwxszxald-Debbie Work Phone: Start: 48-64-9971Murmutr encounter procedureEpi Andrews Work Phone: [phone]-Xbroibzspftlmz-[place] Work Phone: Start: 01-28-2021 End: 10-06-7505Aohjgfbmbz hospital visit by Royce Bazzi [facility] Work Phone: [facility] Medication ManagementComment on above: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 (Primary Dx); History of pulmonary embolus (PE); MTHFR mutationStart: 61-30-5282Dqcpwv outpatient visit 15 minutesEpi Andrews Work Phone: [phone]-Fmlsyzcteptnim-Debbie Work Phone: Start: 12-17-2020 End: 75-51-9567Ihmkbiybnq hospital visit by Deneen Osuna [employer] Medication ManagementComment on above:MTHFR mutation (HCC); 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; History of pulmonary embolus (PE)Start: 12-14-2020 End: 11-92-9223Fnmtjoafsy hospital visit by Sterling Gonzalez [facility] Ayanna Work Phone: RadiologyComment on above:Pain [R52]Start: 07-11-2020 End: 12-13-5422Ovhkjximef hospital visit by Royce Bazzi Work Phone: [employer] Medication ManagementComment on above:MTHFR mutation (HCC); 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; History of pulmonary embolus (PE)Start: 06-25-2020 End: 11-95-6201Qqctbyedii hospital visit by Arabella Padilla [facility] HealthAny[facility].FM Medication ManagementComment on above:MTHFR mutation (HCC); 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; Coronary artery disease involving [place] coronary artery of [place] heart without angina pectoris; History of pulmonary embolus (PE)Start: 05-28-2020 End: 71-51-2518Kotcfzovkt hospital visit by Royce Bazzi Work Phone: [employer] Medication ManagementComment on above:MTHFR mutation (HCC); 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; History of pulmonary embolus (PE)Start: 04-17-2020 End: 65-94-8873Hfasosega department patient visitFisher-Titus Medical Center EDComment on above:Dyspnea on exertion (Primary Dx); TachycardiaStart: 04-12-2020 End: 94-80-3129Nemsabi encounter procedureJOMadelia Community Hospitalcility:UTMCStart: 04-03-2020 End: 06-39-2826Evbjhqrxas and management of inpatientSteven Yoli Work Phone: mthz [facility] MED SURGComment on above:Dysautonomia orthostatic hypotension syndrome (HCC); ASHD (arteriosclerotic heart disease); Chronic diastolic congestive heart failure (HCC); History of DVT (deep vein thrombosis); Cardiac pacemaker in situStart: 03-29-2020 End: 53-56-8990Xuzbmwkrxx hospital visit by Sterling Gonzalez [facility] Rej Work Phone: RadiologyComment on above:Acute pain of left knee [M25.562]Start: 03-15-2020 End: 51-17-0945Octlvmu encounter procedureBLAIR GRUBBFacility:UTMCStart: 02-14-2020 End: 64-27-4985Lahivfbabr hospital visit by Royce Bazzi Work Phone: [facility] HealthcareAnywhere.FM Medication ManagementComment on above:MTHFR mutation (HCC); 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; History of pulmonary embolus (PE)Start: 01-25-2020 End: 44-68-4695Jybrufqypr hospital visit by Deneen Schneider [employer] Medication ManagementComment on above:MTHFR mutation (HCC); 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; History of pulmonary embolus (PE)Start: 11-07-2019 End: 54-71-4173Rptvtzscti hospital visit by Deneen Schneider [employer] Medication ManagementComment on above:MTHFR mutation (HCC); 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; History of pulmonary embolus (PE)Start: 07-13-2019 End: 55-03-2003Foerbwhjdo hospital visit by Deneen Schneider [employer] Medication ManagementComment on above:MTHFR mutation (HCC); 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; History of pulmonary embolus (PE)Start: 06-27-2019 End: 52-73-4202Ccdyfzvnuw hospital visit by Arabella BravoFeedofin Medication ManagementComment on above:MTHFR mutation (HCC); 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; Coronary artery disease involving [place] coronary artery of [place] heart without angina pectoris; History of pulmonary embolus (PE)Start: 06-10-2019 End: 35-69-9392Ahmtawowfq hospital visit by Jany Tejeda Table Study Room [facility] Stress LabComment on above:Essential hypertension; ASHD (arteriosclerotic heart disease); Chronic diastolic congestive heart failure (HCC); History of DVT (deep vein thrombosis); Cardiac pacemaker in situStart: 05-30-2019 End: 37-24-7851Sprvkniloa hospital visit by Royce Bazzi Work Phone: [employer] Medication ManagementComment on above:MTHFR mutation (HCC); 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; History of pulmonary embolus (PE)Start: 04-26-2019 End: 32-82-9015Plzrpxgbzw hospital visit by Arabella Padilla [facility] Medication ManagementComment on above:MTHFR mutation (HCC); 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; Coronary artery disease with stable angina pectoris, unspecified vessel or lesion type, unspecifiedwhether [place] or transplanted heart (HCC); History of pulmonary embolus (PE)Start: 04-05-2019 End: 85-12-7887Bgxbkuozlz hospital visit by Royce Bazzi Work Phone: [employer] Medication ManagementComment on above:MTHFR mutation (HCC); 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; History of pulmonary embolus (PE)Start: 03-12-2017 End: 15-36-4175WwzaeibcsjDBGC [facility] HospitalStart: 03-12-2017 End: 83-52-4990MxooackhzlYVJQ [facility] HospitalStart: 03-05-2017 End: 59-35-4323WgyqzurzqxPIGXAG EMILYFirelands Regional [facility] Center HospitalStart: 03-04-2017 End: 16-33-1465PaqhyuvotpXGVF [facility] HospitalStart: 07-10-2014 End: 83-24-6281Sqlyded encounter statusCaroMont Regional Medical [facility] Work Phone: preoperative [facility] Systemmansoor Andrews Work Phone: [phone]-Fdoqlicgiqohwf-[facility] Work Phone: Procedures DateProcedureProcedure DetailPerforming ClinicianStart: 30-92-5763Khjcz of ferritinRhoda Quezada MD Work Phone: Start: 46-36-7782Qpifw of troponin Jere Martinez [employer] Work Phone: Start: 06-05-2025 End: 63-04-2972Ddflrivmxi examination tibia & fibula 2 Arianne Martinez [employer] Work Phone: Start: 94-30-7783Jtkmcllhxi exam chest single viewAnkit Ortiz MD Work Phone: Start: 38-26-8410Cn cervical spine w/o contrast materialShreya James Juan [employer] Work Phone: Start: 36-00-3258Uw head/brain w/o contrast material Shreya James Juan [employer] Work Phone: Start: 81-57-8970Cyuibizjfrhwj metabolic panelAnkit Ortiz MD Work Phone: Start: 82-90-9341Oiv routine ecg w/least 12 lds w/i&r Ankit Ortiz MD Work Phone: Start: 72-91-3442Qpmav count complete automatedMohamed Damien CLARK Work Phone: Start: 79-04-3523Ivpzp count complete automatedMohamed Damien CLARK Work Phone: Start: 87-16-1522Aqomorjwuvdqz metabolic panelMoramaned Damien CLARK Work Phone: Start: 48-11-3623Nrabmoftdawao metabolic panelMoramaned Damien CLARK Work Phone: Start: 66-78-7760Eakg transthorc r-t 2d w/wo m-mode rec f-up/lmtdMpaige Herrera MD Work Phone: Start: 82-35-3882Sxk routine ecg w/least 12 lds w/i&r Davisdon Herrera MD Work Phone: Start: 95-72-8080LFGYFAJPHPZUEVAUI PROCEDUREMumelina Herrera MD Work Phone: Start: 23-25-4514Ndhwwdsdzejr coronary intervention Lana Allen DO Work Phone: Start: 04-26-2025 End: 30-56-6423Sneenhebqic time activatedDavidson Herrera MD Work Phone: Start: 99-02-5840Tzzkp typing serologic aboDavidson Herrera MD Work Phone: Start: 10-76-0360Wncewazh [Moles/volume] in Serum or PlasmaDavidson Herrera MD Work Phone: Start: 31-84-5002OEOWNFJXKO W/GFR POINT OF CARE Davidson Herrera MD Work Phone: Start: 74-90-1957Djrs bld gluc mntr dev cleared fda spec home useDavidson Herrera MD Work Phone: Start: 14-99-8330Kxbssscip [Moles/volume] in Serum or PlasmaDavidson Herrera MD Work Phone: Start: 47-50-2929Rdechy [Moles/volume] in Serum or PlasmaDavidson Herrera MD Work Phone: Start: 89-66-4345Jen routine ecg w/least 12 lds w/i&r Davidson Herrera MD Work Phone: Start: 67-57-8789Enqivkvb blood count with white cell differential, automatedBayshore Community Hospitalc Suman CLARK Work Phone: Start: 10-42-8110Hcqfbroqyxr timeMegan L Carson [employer] Work Phone: Start: 52-61-3854Hzcpejscugt timeMegan L Carson [employer] Work Phone: Start: 08-35-6075Debsil ecg 1-3 leads w/interpretation & reportUnknown Provider ResultStart: 94-28-9175EWPNL GAS, ARTERIALMark Aston Reardon MD Work Phone: Start: 34-69-0169Nzpv tthrc r-t 2d w/wom-mode compl spec&colr dMebrandon Byrd [employer]ER [employer] - [facility] Work Phone: Start: 74-38-9167Kvefmgrmmed timeMebrandon Byrd [employer]ER [employer] - [facility] Work Phone: Start: 47-55-8490Syzqgpe bacterial quanttative colony count urineShgareth StarksOscar [facility] Work Phone: Start: 29-24-3237NWFZ CULT,URINEGeneric External Data ProviderStart: 07-72-4604Wmaxsa and language therapy regimeMark Aston Reardon MD Work Phone: Start: 82-89-3659Ribcrcuvlrpq pulse oximetryMark Aston Reardon MD Work Phone: Start: 21-68-9383Hicryehigcz peptideJames P Dennis PA-C Work Phone: Start: 43-55-7344Odjngnrvii exam chest single view Milton P Dennis PA-C Work Phone: Start: 03-21-2025 End: 19-27-4646Sw head/brain w/o contrast materialJames P Dennis PA-C Work Phone: Start: 78-27-4458If cervical spine w/o contrast materialJames P Dennis PA-C Work Phone: Start: 03-21-2025 End: 47-81-3910Rae routine ecg w/least 12 lds i&r onlyJames P Dennis PA-C Work Phone: Start: 64-34-2440Hnyluodaunedv metabolic panelJames P Dennis PA-C Work Phone: Start: 25-23-9363Zmabxcaezs microscopic onlyJames P Dennis PA-C Work Phone: Start: 47-06-6777Jkomc dip stick/tablet rgnt auto w/o microscopyMark Aston Reardon MD Work Phone: Start: 46-48-9616Nxdtqhnzcq examination tibia & fibula 2 viewsAshish Bhandari MD Work Phone: Start: 67-21-3815Awtmj of troponin quantitativeAshish Bhandari MD Work Phone: Start: 61-50-0104Cncccylkud exam chest single view Ashish Bhandari MD Work Phone: Start: 51-99-6506PHNTG-19, RAPIDAshish Bhandari MD Work Phone: Start: 69-54-2852Zvpcewffmgvvp metabolic panelAshish Bhandari MD Work Phone: Start: 12-64-5360Niu routine ecg w/least 12 lds w/i&r Ashish Bhandari MD Work Phone: Start: 07-53-1043Sgqgljlyyw examination knee 1/2 views Reyna RECIO Work Phone: Start: 92-14-6269Ruhebdeiylpux metabolic panelMohamed Damien CLARK Work Phone: Start: 62-63-2553HNKD CBC WITH DIFFGeneric External Data ProviderStart: 75-80-7738XNJ CBC WITH AUTO DIFFGeneric External Data ProviderStart: 29-67-6085Lqurn count complete automatedStmurray Moore MD Work Phone: Start: 61-45-9142Wgaan elbow complete minimum 3 views Douglas Will MD Work Phone: Start: 85-87-0792VD SPINE CERVICAL W/O CONTRASTDouglas Will MD Work Phone: Start: 26-77-9645Ui lumbar spine w/o contrast material Douglas Will MD Work Phone: Start: 34-66-5680XZ Pelvis bones WO contrastDouglas Will MD Work Phone: Start: 01-24-2025 End: 05-72-6176Zxsba shoulder complete minimum 2 viewsDouglas Will MD Work Phone: Start: 72-67-7400HF PULMONARY FUNCTION TESTDouglas Will MD Work Phone: Start: 76-56-3919HRI HEMOGLOBINDouglas Will MD Work Phone: Start: 45-61-9404Xjhowdlq blood count with white cell differential, automatedDouglas Will MD Work Phone: Start: 63-49-5427Sylxnm dgradj products d-dimer quantitativeMarmayte Will MD Work Phone: Start: 32-78-9018Iqvttk-up visitFollow-upALBERT W TSANGStart: 76-49-1795SPB CBC WITH AUTO DIFFGeneric External Data ProviderStart: 47-01-5464Twufh metabolic panel calcium totalBrebethany Deal PA-C Work Phone: Start: 67-10-1473CEYK / NAIL BIOPSYDestinyon Newton RECIO Work Phone: Start: 77-06-9040Ijkauqrikk exam esophagus single contrast studyWumukesh Pimentel DO Work Phone: Start: 16-30-1452Pxmlf function panelJesse Oliva MD Work Phone: Start: 96-24-3852Phsewsplmglvntigngczjzbmxo submucosal injectionSjarrell Alanis MD Work Phone: Start: 73-22-3740Jncwg typing serologic rh (d)Savanna Avilez MD Work Phone: Start: 78-10-4020Dohxn function panelJesse Oliva MD Work Phone: Start: 46-11-6208Qpvkz function panelJesse Oliva MD Work Phone: Start: 38-35-6063Veokqugbzy exam swallow function contrast studyJesse Oliva MD Work Phone: Start: 46-12-5902Puosr function panelJesse Oliva MD Work Phone: Start: 08-12-0491Kvmrwbj quantitative blood xcpt reagent stripDaniel R Pinedale DO Work Phone: Start: 65-07-1652Srk routine ecg w/least 12 lds trcg only w/o i&rOivon Oliva MD Work Phone: Start: 80-88-8307Qguek of troponin quantitativeMalorie Maldonado MD Work Phone: Start: 08-77-2180Xrvnsbfrlb exam chest single view Malorie Maldonado MD Work Phone: Start: 53-74-1070Nhzpcdvcozuvc metabolic panelMalorie Maldonado MD Work Phone: Start: 44-08-4392Awppsxut I.cardiac panel - Serum or Plasma by High sensitivity methodMalorie Maldonado MD Work Phone: Start: 76-08-1934Puo routine ecg w/least 12 lds trcg only w/o i&Carmen Hutchison MD Work Phone: Start: 58-05-5407Zcgbhnqbpkw [Units/volume] in Serum or PlasmaNolan Julio MD MPH Work Phone: Start: 07-27-5500Mrstl depression screening assessment Lucie KirkpatrickStart: 56-90-8686Uyuiezlqih exam chest 2 viewsMuriel Deal PA-C Work Phone: Start: 09-68-0415Fgejbd-up visitFollow-upEMMA ZABALAStart: 44-87-7577Msehioivkqw timeHistorical Provider MDStart: 02-10-2023 Prothrombin timeHistorical Provider MDStart: 54-55-8634Lhzwdirnnso time Historical Provider MDStart: 11-82-8839Akrwqdkylim timeHistorical Provider Start: 73-95-3841Cnnsozwppde timeHistorical Provider MDStart: 12-10-2022 Radiologic examination knee 3 viewsColby D Decapua PA-C Work Phone: Start: 03-40-5619Tgrjurfroty timeHistorical Provider MDStart: 98-07-8390Jgq-scan xtr veins complete bilateral studyBrebethany Yue PA-C Work Phone: Start: 51-31-8640Prhzmyibqdk timeHistorical Provider MDStart: 21-92-6684Bphxetpbil examination knee 3 viewsColby D Decapua PA-C Work Phone: Start: 14-65-9027Mxptuekifxj timeHistorical Provider MDStart: 00-31-2738Mogzcuxvqmu timeHistorical Provider MDStart: 06-04-2022 Prothrombin timeHistorical Provider MDStart: 29-97-3458Joarxfwzes examination knee 3 viewsColby D Decapua PA-C Work Phone: Start: 04-75-0439QFT + DIFFShanelle Cid MD Work Phone: Start: 37-74-0349Iqafrnuvhfhxi metabolic 2000 panel - Serum or PlasmaShanelle Cid MD Work Phone: Start: 88-58-7190Zwjfsmxffx bloodShanelle Cid MD Work Phone: Start: 57-89-5020Vouk screen quantitative vancomycin Shanelle Cid MD Work Phone: Start: 47-11-1577GRMOQTSUCZ LEVELShanelle Cid MD Work Phone: Start: 75-05-6198Viyonprhbvk timeHistorical Provider MDStart: 96-65-0794Auve tthrc r-t 2d w/wom-mode compl spec&colr dShiforeign Starks [employer] Work Phone: Start: 23-49-7463MMSAC METABOLIC PANEL W/ REFLEX TO MG FOR LOW KShirley A Tereza [facility] Work Phone: Start: 25-69-9767Mhcri panelShirley A Tereza [facility] Work Phone: Start: 18-70-9074Icomihanteq timeShirley A Tereza [facility] Work Phone: Start: 81-89-7638Sha routine ecg w/least 12 lds w/i&r Karsten Dyer MD Work Phone: Start: 04-03-2022 End: 19-34-6905Zuh routine ecg w/least 12 lds w/i&rShirley A Tereza [facility] Work Phone: Start: 71-66-7907Aujwa of troponin quantitativeShirley A Tereza [facility] Work Phone: Start: 60-56-5895Xiftypgdqz exam chest 2 viewsShirley A Tereza [facility] Work Phone: Start: 11-81-4521Zlblrnnqiye peptideSkerryrley A [facility]fieldSt[facility] Work Phone: Start: 01-12-3176Tisipbkxlhky pulse oximetryShirley A [facility]fieldSt. [facility] Work Phone: Start: 04-02-2022 End: 68-68-1855Urm routine ecg w/least 12 lds i&r onlyShirley A WheatfieldF[facility] Work Phone: Start: 87-03-7145Ketfoujsqzb timeHistorical Provider MDStart: 12-58-1429Pijn count misc body fluids w/differential countColby Royce Vargasua PA-C Work Phone: Start: 88-86-1411Lvloqfx tubercle/oth acid-fast bacilli any isolColby D Decapua PA-C Work Phone: Start: 63-66-4836AMXKFGPA FLUID MANUAL DIFFColby D Decapua PA-C Work Phone: Start: 27-28-4737Bbjdnlqexjupdf aspir&/inj major jt/bursa w/o usColby D Decapua PA-C Work Phone: Start: 81-08-3326Wpjuaujvaay timeHistorical Provider MDStart: 10-31-1885Olmdqmpzcjq timeHistorical Provider MDStart: 01-01-2022 Prothrombin timeHistorical Provider MDStart: 51-05-2609BZ of abdomen with contrastMD Douglas Buddystephanie Work Phone: Start: 54-62-6608Se lumbar spine w/o contrast material Ana Maria Amato DO Work Phone: Start: 56-50-5535Lyfsu forearm 2 viewsSantmckenzie Amato DO Work Phone: Start: 67-83-1755Qgueyjkobr examination knee 3 views Cooper D Decapua PA-C Work Phone: Start: 34-44-5313Odqibsizmzk timeHistorical Provider MDStart: 16-75-5385Ucjvagmjxpy timeHistorical Provider MDStart: 07-04-2021 Radiologic examination knee 3 viewsColby D Decapua PA-C Work Phone: Start: 41-56-3911P-reactive proteinSissy Savage MD Work Phone: Start: 23-12-0235Mrgvmkqdic bloodSissy Savage MD Work Phone: Start: 70-47-2753Xoqvckogqhj timeHistorical Provider MDStart: 94-93-7478Vmuekhouizl timeHistorical Provider MDStart: 02-20-2021 Prothrombin timeHistorical Provider MDStart: 32-20-9764Ibeexfieuuq time Historical Provider MDStart: 82-77-0944Tusorjuxciu timeHistorical Provider MD [place]: 85-95-2770Fgmwh hip unilateral with pelvis 2-3 viewsJuan Carlos Weber MD Work Phone: Start: 90-36-9952Ohbdgxszjsw timeHistorical Provider Start: 90-18-2117Vtnghrfqhil timeHistorical ProviderStart: 03-44-6975Pvhhovkuqss timeHistorical ProviderStart: 97-30-7219Rt thorax w/contrast materialJames P Dennis Work Phone: Start: 56-98-9110Krujw of troponin quantitativeJames P Dennis Work Phone: Start: 44-78-3545Sazoxkrkch exam chest single view Milton P Dennis Work Phone: Start: 54-60-6538Smpzs of troponin quantitativeJames P Dennis Work Phone: Start: 68-62-1020ISWFW METABOLIC PANEL W/ REFLEX TO MG FOR LOW KJames P Dennis Work Phone: Start: 56-00-3919Vpkln count complete auto&auto difrntl wbcJames P Dennis Work Phone: Start: 64-50-7196Utvlcgvqurb peptideJames P Dennis Work Phone: Start: 18-50-2120Mvvqgktgnzu timeJames P Dennis Work Phone: Start: 66-88-9897Ujjnc of magnesiumShirley A [employer] Work Phone: Start: 91-49-9312Fqhbq metabolic panel calcium total Toni [employer] Work Phone: Start: 45-87-3456Tknmt count complete auto&auto difrntl wbcSteven [employer] Work Phone: Start: 80-60-6509Psxqpfzcvwv timeSteven [employer] Work Phone: Start: 48-60-5480Cudqs of troponin quantitativeShirley A [employer] Work Phone: Start: 67-46-3628Mwh routine ecg w/least 12 lds i&r onlySteven Emily Work Phone: Start: 43-80-7510VNA REPORTHpf ScanningStart: 28-77-2709Cuche of magnesiumShirley A Wheatfield Work Phone: Start: 87-64-0757Vdmkw metabolic panel calcium total Toni Bru Work Phone: Start: 65-47-8972Dirjc count complete auto&auto difrntl wbcKansas Voice Center Work Phone: Start: 30-88-6187Febyygtgzer timeSLexington Shriners Hospital Work Phone: Start: 14-02-2616Scr routine ecg w/least 12 lds i&r onlyStmon health medical center Emily Work Phone: Start: 64-99-1964PQC REPORTHpf ScanningStart: 06-04-8047Cau routine ecg w/least 12 lds i&r onlyStHolton Community Hospital Work Phone: Start: 74-93-4021MDA REPORTHpf ScanningStart: 13-34-3387Fwwjy metabolic panel calcium totalStluda Naqvi Work Phone: Start: 03-19-4851Hhivg count complete auto&auto difrntl wbcKansas Voice Center Work Phone: Start: 65-01-2398Qthlozemyfy timeSLexington Shriners Hospital Work Phone: Start: 14-22-5813Uff routine ecg w/least 12 lds i&r onlySten Emily Work Phone: Start: 42-88-8048TWR REPORTHpf ScanningStart: 92-50-8683Fgv routine ecg w/least 12 lds i&r onlySten Emily Work Phone: Start: 66-01-6298FCL REPORTHpf ScanningStart: 56-90-0180Bplnn metabolic panel calcium totalStmon health medical center Emily Work Phone: Start: 48-34-9433Uzbwx count complete auto&auto difrntl wbcSten Habitissimobriseyda Work Phone: Start: 28-88-3729Jbzsimfjvru timeSteven [employer] Work Phone: Start: 33-06-2980Ppm routine ecg w/least 12 lds i&r onlyStluda [employer] Work Phone: Start: 54-57-8812QBZ REPORTHpf ScanningStart: 23-25-1127Jopknmwrak exam knee complete 4/more viewsChad Workman OLIVER Work Phone: Start: 94-48-1959Qbxbvcxtzzg timeHistorical Provider Start: 98-25-6792Nensdmqytto timeHistorical ProviderStart: 33-74-8782Afouemlqnwi timeHistorical ProviderStart: 05-43-8541Wrqlyhbgueo timeHistorical Provider Start: 52-81-1192Cltjqgexhsg timeHistorical ProviderStart: 05-00-3295Xtywclnpekg timeHistorical ProviderStart: 26-36-1680Mdlwraadncf timeHistorical Provider Start: 72-39-7624Ckkboryrswn timeHistorical ProviderStart: 02-13-1006SNF WITH AUTO DIFFERENTIALGREG VIGESAAStart: 57-00-2104QDNRXJY-INRGREG VIGESAAStart: 65-05-5082Xhags x-rayGREG VIGESAAStart: 89-57-9874OYIUJH THERAPYGREG VIGESAA Start: 88-09-2735SIVT LAB REPORTGREG VIGESAAStart: 29-00-6550VULFBSPRK PATIENT REYNOLD VIGESAAStart: 54-69-1412ZYULENQ VIGESAAStart: 29-37-6565WWBPIEVZUODLX METABOLIC PANELGREG VIGESAAStart: 78-48-2257Zthvg x-rayGREG VIGESAAStart: 09-07-2307CFTUVV AND OUTPUTGREG VIGESAAStart: 45-07-3480HNHY CARDIACGREG VIGESAA Start: 62-13-0581HXZPTX AND OUTPUTGREG VIGESAAStart: 22-54-3467BUUGBP PHYSICIAN (SPECIFY)REYNOLD SANTIZOAAStart: 85-14-7132OFSKQLX COMMUNICATIONGREG VIGESAAStart: 04-41-3168DXNABB THERAPYGREG VIGAAStart: 10-85-5797EDCMX INTERMITTENT PNEUMATIC COMPRESSION DEVICEGREG Start: 26-65-6502HPSMR OXIMETRY SPOT CHECKGREG art: 34-14-6185SSXHLPMLZ MONITORINGGREG art: 06-89-5598GJIV CODEGREG VIGStart: 56-61-4868JWXKA SIGNSGREG Start: 30-41-8516Aakjw x-ray 1 view frontalGREG Start: 66-50-5839Srcelbawfdq up to 1 hour physician/qhp timeGREG VIGAAStart: 84-39-3908AXQSVCF STATUS (FROM ED OR OR/PROCEDURAL)REYNOLD Start: 92-51-1219UPGPIVKG PATIENTGREG VIGPHYSICIANS [facility]ARE [facility] Start: 49-51-2584JLJVKEO-INRGREG Start: 09-43-2906Dkmkuok of operative procedure on kneeStatus post knee surgeryCast Indp Work Phone: Start: 57-92-4304Qhvbirm of placement of stent for coronary artery diseaseS/P coronary artery stent placement on 03/20/17adela Osuna RPHAfter-cataract of bilateral eyesRobert Minus appendectomyRobert Minus arthroplasty of kneeEpi Nulller Work Phone: Comment on above:right knee, 2 replacements, multiple surgeries;Arthroplasty of kneeRobert Minus Bilateral mastectomyJonathan Melanie NullDarryl Work Phone: Breast surgery (qualifier value)Isauro Minus Cardiac pacemaker, device (physical object)Isauro Minus ColonoscopyJonathan Melanie NullHouston Work Phone: ColonoscopyRobert [employer] EsophagogastroduodenoscopyJomansoor Navarro Design A Work Phone: Excision of tonsil, palatine arch and superior pharyngeal constrictor muscleRobert Minus Gallbladder structure (body structure)Isauro ARCHULETA H/O: artificial jointJennifer Rohrbacher Other H/O: hysterectomyJennifer Rohrbacher Other H/O: surgeryHistory of esophagomyotomyDouglas Will MD Work Phone: History of operative procedure on knee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Xr Graham Work Phone: History of operative procedure on kneeHistory of right knee joint replacementMahailey RECIO Work Phone: HysterectomyJonathan F Darryl Work Phone: HysterectomyRobert KATHE Intestinal structure (body structure)Isauro ARCHULETA Kidney structure (body structure)Isauro ARCHULETA Ligation of fallopian tubeRobert KATHE Operation on heartJonathan F Darryl Work Phone: Partial resection of colonJonathan F Houston Work Phone: [phone]-fwzpmjg back pain (finding)Isauro ARCHULETA Repair of esophagusKathy Lue Plan of Treatment DateCare ActivityDetailAuthorStart: 48-17-4765EHjZ,Tdap and Td Vaccines (4 - Td or Tdap)DTaP,Tdap and Td Vaccines (4 - Td or Tdap)[facility] SystemStart: 09-46-8978XKxG/Tdap/Td vaccine (4 - Td or Tdap)DTaP/Tdap/Td vaccine (4 - Td or Tdap)[facility]ITALStart: 77-11-7060VLyC/Tdap/Td Vaccines (4 - Td or Tdap)DTaP/Tdap/Td Vaccines (4 - Td or Tdap)[facility] Start: 54-92-1465SQdC/Tdap/Td vaccine (3 - Td or Tdap)DTaP/Tdap/Td vaccine (3 - Td or Tdap)[facility] CenterStart: 11-56-5544UQsA/Tdap/Td vaccine (3 - Td) DTaP/Tdap/Td vaccine (3 - Td)[facility]: 50-10-7616Fqypj microalbumin profilePaulding County Hospitaltart: 12-25-2025 End: 08-75-7751Kzjtvjz encounter gwzlgmaxl70/11/2026 2:20 PM EDT Office Visit [facility] Part [address] [address] Toni Moore MD [address] [place] [phone] 6 [facility]ard HospitalComment on above:6 monthStart: 87-08-1427Acnfozj ScreeningTobacco ScreeningAtrium Health Kannapolistart: 12-13-2025 End: 25-74-2537Qzarpys encounter umdxizfmx47/29/2026 11:00 AM EDT Office Visit [facility]ESSICA OVIEDO [address] [place] [phone] Timothy Penn, DO [address] [place] [address] [facility] FNStephanie PULMStart: 07-36-2551GUQYUHAF SCREENDIABETES SCREEN [facility] ClinicStart: 25-82-2552Awlhvimy ScreeningDiabetes ScreeningPaulding County Hospitaltart: 08-22-2025 End: 26-39-0135Pgthbkox Yyngjuw1308/22/2025 12:25 AM EST Clinical Support [facility] Part [address] [address] pacer remote checkTRINITY HEALTH SYSTEM CARDIOLOGY [facility]us HospitalComment on above:pacer remote checkStart: 49-31-3374Qtrhhas ScreeningTobacco ScreeningTrumbull Regional Medical Center Health SystemStart: 07-06-2025 End: 19-02-4737Tcpljwb encounter /20/2025 10:00 AM EST Office Visit [facility] [address] [place] [phone] Rhoda Higgins MD [address], [address] [address] [facility] Vascular SurgeryStart: 07-03-2025 End: 14-63-2489Mfkvngp encounter vccyqasof87/17/2025 4:00 PM EST Office Visit [facility] Part of [address] [address] Rhdoa Quezada MD [address] [place], [place] labs follow [facility] Part of [facility] HospitalComment on above:labs follow upStart: 06-29-2025 End: 00-01-3835Reyeprb encounter ftojxhzbx15/13/2025 10:00 AM EST Office Visit [facility] Surgery [address] [place] [phone] Rhoda Higgins MD [address], [address] [address] [facility] Vascular SurgeryStart: 90-34-3901vewsxprekvBqrneqkbeoJfnfb [facility] HospitalStart: 06-13-2025 End: 43-06-6473Gwirkpc encounter hbpvfcyma40/28/2025 1:00 PM EDT Appointment [facility] [address], [place] [phone] RetacritMT MED ONCComment on above:RetacritStart: 06-12-2025 End: 23-52-1077Urhddkb encounter procedureProMedica Physicians Pulmonary/Sleep MedicineComment on above:labs follow upStart: 06-06-2025 End: 60-53-3321Pvaktbt encounter procedureTRINITY [facility] Part Griffin HospitalComment on above:week-RetacritStart: 05-29-2025 End: 46-96-8303Kkwrogg encounter dizjenvdk98/13/2025 1:30 PM EDT Office Visit [facility] Part of [address] [address] Nyasia Wagner, TRANSFORMER [employer] - [employer] [address] [place] [address] 1 month post watchfarmland implantTRINITY HEALTH SYSTEM CARDIOLOGY Part Griffin HospitalComment on above:1 month post watchman implantStart: 05-24-2025 End: 11-38-2360Ljchdbj encounter abllwzars50/08/2025 1:15 PM EDT Office Visit [facility] [address] [place] [address] Douglas Will MD [address] [place] [address] [facility] FMStart: 05-23-2025 End: 86-99-4166Zmqtehp encounter jowcbckzy66/07/2025 3:30 PM EDT Office Visit [facility] Part [address] [address] Robbie Coats, TRANSFORMER SHOP SUPERVISOR - TOWERMAN [address] [place] [address] 4 months [facility] Backus HospitalComment on above:4 months Start: 55-54-1989Xkscttlcrd hospital visit by zwejerhah57/07/2025 2:00 PM EDT Hospital Encounter [facility] [address] [place] [address] [phone] MED ONCStart: 11-64-0612PSWHFKPC SCREENDIABETES SCREENUniversity Hospitals Health System Start: 05-17-2025 End: 67-38-1798ccmiqsevibDqzfi [facility] Medication ManagementComment on above:Heart Failure NEW PtHeart Failure NEW Pt- APPT CONFIRMED 05/16/25Start: 05-16-2025 End: 97-53-7953Ecgdwuv encounter vlfydahuf62/30/2025 10:00 AM EDT [facility] [address] [place] [address], [place] [phone]/venofer (2 of 2)[facility] MED ONCComment on above:retacrit/venofer (2 of 2)Start: 05-06-2025 DIABETES SCREENDIABETES SCREENPaulding County Hospitaltart: 48-26-4699SBSZLOOY SCREEN DIABETES SCREENPaulding County Hospitaltart: 05-04-2025 End: 03-91-6938Lciycwr encounter ulyyzpuhj32/18/2025 3:00 PM EDT Office Visit [facility] Part of [address], [place] [phone] Rhoda Quezada MD [address] [facility] [id number] follow up [facility] Part of [facility] HospitalComment on above:follow up labsStart: 05-03-2025 End: 33-60-4018Bpiwsed encounter procedureNOMS FNR PULMComment on above:Arrived Start: 35-44-3098ZICYI-19 Vaccine ( season)COVID-19 Vaccine ( season)[facility] CenterStart: 69-10-4702JTVQVCGF SCREENDIABETES SCREENPaulding County Hospitaltart: 06-07-1119Jijqsfckd vaccinationProHenry County Hospitalca Health SystemStart: 04-12-2025 End: 44-65-0439Arcqbao encounter gyebhugrv03/27/2025 3:00 PM EDT Office Visit [facility] Part of [address] [place] [phone] Nyasia Wagner, TRANSFORMER SHOP SUPERVISOR - TOWERMAN [address] [place] [address] [place] [address] Hospital [facility] Part of [facility] HospitalComup [facility] system on above:Hospital follow upStart: 04-06-2025 End: 54-37-8075Vhpziky encounter procedureNOMS CWM FMComment on above:Arrived Start: 47-80-1723Awavlgwyl for osteoporosisBone Density ScanSelect Medical [facility], [place]: 56-75-8988Pomjoitvpu measurementCreatinine [facility]: 00-25-5039Dockytat mellitus screeningDiabetes ScreeningSelect Medical [facility], [place]: 16-53-0850Ayiemtoow measurement Potassium LevelSelect Medical Cleveland Clinic [facility], [place]: 03-31-2025 End: 75-04-6155Zgocw metabolic 2000 panel - Serum or PlasmaBasic Metabolic Panel Lab Routine KARLEE (acute kidney injury) Expected: 03/31/2025, Expires: 03/24/2026 [facility] on above:Expected: 03/31/2025, Expires: 03/24/2026Start: 03-31-2025 End: 24-12-0280WPR W Auto Differential panel - BloodCBC with Auto Differential Lab Routine KARLEE (acute kidney injury) Expected: 03/31/2025, Expires: 03/24/2026 [facility] on above:Expected: 03/31/2025, Expires: 03/24/2026Start: 87-92-1047Nkqffgdvby measurementCreatinine [facility]: 58-57-9192Xarvpvkvz measurementPotassium Level [facility] [place]: 03-29-2025 End: 41-29-3376Ygkalhw encounter teqyxmmnv32/13/2025 1:00 PM EDT Office Visit [facility] [place] [address] Davidson Herrera MD [address] [place], [place] MANAGER BEHAVIOR---pt having PAF (paroxysmal atrial fibrillation) (HCC), Dysautonomia orthostatic hypotension syndrome, Dizziness, Iron deficiency anemia, unspecified iron deficiency anemia type, Syncope and collapse, Frequent falls, Chronic anticoagulation, History of DVT (deep vein thrombosis), Dissection of aorta, unspecified portion of aorta (HCC) [facility] CardiologyComment on above:MANAGER BEHAVIOR---pt having PAF (paroxysmal atrial fibrillation) (HCC), Dysautonomia orthostatic hypotension syndrome, Dizziness, Iron deficiency anemia, unspecified iron deficiency anemia type, Syncope and collapse, Frequent falls, Chronic anticoagulation, History of DVT (deep vein thrombosis), Dissection of aorta, unspecified portion of aorta (HCC) Start: 38-03-5544Xejbndkc mellitus screeningDiabetes ScreeningSelect Medical [facility] Clinic [facility], [place]: 03-24-2025 End: 00-30-0991etugurbwsw17/08/2025 1:00 PM EDT Anti-coag visit [facility] Management [address] [place] [phone] INR check 3rd visit weight down to 85 lb - ED visit 03/20/25 for bleeding/injury to legBarnesville Hospital Medication ManagementComment on above: INR check 3rd visit weight down to 85 lb - ED visit 03/20/25 for bleeding/injury to legStart: 03-23-2025 End: 21-38-8866Knsuani encounter kpmoewcrg30/07/2025 2:15 PM EDT Office Visit [facility] Part of [place] [phone] Rhoda Quezada MD [address] [facility], [id number] F/U [facility] SPECIAL[facility] Part of [place] HospitalComment on above:F/U labsStart: 03-23-2025 End: 69-26-6171Cqmmsco encounter procedureTR[facility] Part of Hartford HospitalComment on above:Chronic obstructive pulmonary disease, unspecified COPD type (HCC)COPD,PFT 01/24/25, CTA 12/09/24Start: 03-17-2025 Influenza vaccinationFlu vaccine (#1)Flory Cage [facility] CenterStart: 03-17-2025 Thyroid stimulating hormone measurementTSAdena Pike Medical Center: 03-10-2025 End: 32-82-6507Dmoelxc encounter odwhzlpzm38/25/2025 1:30 PM EDT Appointment [facility] [place] [address] [place] [address] Nolan Julio MD MPH [address] [place] [address] [facility] ORStart: 03-09-2025 End: 72-74-4769Idlmymo encounter olapgupta70/24/2025 1:15 PM EDT Office Visit [facility] [address] [place] [address] Douglas Will MD [address] [place] [address] [facility] CWM FMStart: 03-08-2025 End: 07-73-7264Ywrdfiv encounter procedureNOMS FNR PULMComment on above:Chronic obstructive pulmonary disease, unspecified COPD type (HCC); SOB (shortness of breath)Start: 03-06-2025 End: 77-75-2772Ppvujvk encounter procedureNOMS TSR DERMComment on above:Arrived Start: 02-20-2025 End: 01-91-7011Aeuhfeq encounter procedureNOMS CWM FMComment on above:Arrived Start: 02-16-2025 End: 00-20-8328Kpouczq encounter procedureNOMS CWM FMComment on above:New- Referred by Moris Dysautonomia orthostatic hypotension syndromeStart: 02-09-2025 End: 53-25-2651Ladprdueicejkcsqquhfxwucww (EGD) w Dilation TTS Esophagogastroduodenoscopy (EGD) w Dilation TTS Endoscopy Routine Gastroesophageal reflux disease, unspecified whether esophagitis present Dysphagia, unspecified type Expected: 02/09/2025 (Approximate), Expires: 08/11/2026[facility] Service Area Work Phone: Comment on above:Expected: 02/09/2025 (Approximate), Expires: 08/11/2026Start: 02-03-2025 End: 81-63-1034Smzqjqg encounter resabsgyt17/20/2025 11:45 AM EDT Office Visit [facility] [address] [place] [address] Douglas Will MD [address] [place] [address] [facility] CWM FMStart: 01-18-2025 End: 51-92-0313Teifpob encounter epgwkruoa70/04/2025 9:20 AM EDT Office Visit [facility] [address] [address] Toni Moore MD [address] [place] [address] 1 yr with pacer check/[employer] [facility] CARDI[facility] Backus HospitalComment on above:1 yr with pacer check/BiotronikStart: 01-13-2025 End: 73-85-9218xsxoqxipqu92/30/2025 12:00 PM EDT Nurse Injection [facility] [address] [place] [address] [facility]Trauma and Adult ReconstructionStart: 01-12-2025 End: 54-13-7503Lcgsc metabolic 1998 panel - Serum or PlasmaBasic metabolic panel Lab Routine Encounter for long-term 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 medication Expected: 2024 (Approximate), Expires: 01/12/2026[facility] Work Phone: Comment on above:Expected: 01/12/2025 (Approximate), Expires: 01/12/2026Start: 01-12-2025 End: 67-37-1360SXI W Auto Differential panel - BloodCBC and differential Lab Routine Iron 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 dietary iron intake Expected: 01/12/2025 (Approximate), Expires: 01/12/2026[facility] HealthcareComment on above:Expected: 01/12/2025 (Approximate), Expires: 01/12/2026Start: 01-12-2025 End: 84-02-0595Beqglsx function 2000 panel - Serum or PlasmaHepatic function panel Lab Routine Severe protein-calorie malnutrition (CMS/HCC) Expected: 01/12/2025 (Approximate), Expires: 01/12/2026[facility] HealthcareComment on above: Expected: 01/12/2025 (Approximate), Expires: 01/12/2026Start: 01-12-2025 End: 87-33-8593Ffij and Iron binding capacity panel - Serum or PlasmaIron and TIBC Lab Routine Iron 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 dietary iron intake Expected: 01/12/2025 (Approximate), Expires: 01/12/2026[facility] Healthcare Comment on above:Expected: 01/12/2025 (Approximate), Expires: 01/12/2026Start: 01-12-2025 End: 78-94-1757Darhnthadnu [Units/volume] in Serum or PlasmaTSH Lab Routine Adult hypothyroidism (CMS/HCC) Expected: 01/12/2025 (Approximate), Expires: 01/12/2026[facility] HealthcareComment on above:Expected: 01/12/2025 (Approximate), Expires: 01/12/2026Start: 01-12-2025 End: 51-92-9964Nhemyxmwv (T4) free [Mass/volume] in Serum or PlasmaT4, free Lab Routine Adult hypothyroidism (CMS/HCC) Expected: 01/12/2025 (Approximate), Expires: 01/12/2026[facility] HealthcareComment on above:Expected: 01/12/2025 (Approximate), Expires: 01/12/2026Start: 01-12-2025 End: 64-65-8368Imdmqffbijsdvrfs (T3) Free [Mass/volume] in Serum or PlasmaT3, free Lab Routine Adult hypothyroidism (CMS/HCC) Expected: 01/12/2025 (Approximate), Expires: 01/12/2026[facility] HealthcareComment on above:Expected: 01/12/2025 (Approximate), Expires: 01/12/2026Start: 63-10-1461Zvosmuecrpxiplhy [facility] HospitalStart: 12-23-2024 End: 33-95-1114GWZ W Auto Differential panel - BloodCBC and differential Lab Routine Iron 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 dietary iron intake Expected: 12/23/2024 (Approximate), Expires: 12/23/2025[facility] Healthcare Work Phone: Comment on above:Expected: 12/23/2024 (Approximate), Expires: 12/23/2025Start: 12-23-2024 End: 79-79-3653Lmrxazd encounter nhadhbovi70/09/2025 11:45 AM EDT [facility] [address] [place] [address] Douglas Will MD [address] [place] [address] [facility]jBRISTOW [facility] FMComment on above:ArrivedStart: 78-07-3120Oavrnenylm ScreeningDepression ScreeningBluffton Hospital SystemStart: 12-13-2024 End: 95-61-6553Pggnszn encounter fmsyexaki45/29/2025 12:00 PM EDT Office Visit [facility] [address] [place] [address] Capri Matthews, TRANSFORMER SHOP SUPERVISOR-TOWERMAN [address] [address] [facility]/Trauma and Adult ReconstructionStart: 12-07-2024 End: 34-55-4156Iznfq metabolic 1998 panel - Serum or PlasmaBasic metabolic panel Lab Routine Essential hypertension, benign (CMS/HCC) Expected: 12/07/2024 (Gene roximate), Expires: 12/07/2025[facility] Work Phone: Comment on above:Expected: 12/07/2024 (Approximate), Expires: 12/07/2025Start: 12-07-2024 End: 46-97-9980SKO W Auto Differential panel - BloodCBC and differential Lab Routine Encounter for long-term 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 medication Expected: 12/07/2024 (Approximate), Expires: 12/07/2025NOM[facility] HealthcareComment on above:Expected: 12/07/2024 (Approximate), Expires: 12/07/2025Start: 12-07-2024 End: 47-93-1870Wuyjmprote A1c/Hemoglobin.total in BloodHemoglobin A1c Lab Routine Prediabetes Expected: 12/07/2024 (Approximate), Expires: 12/07/2025[facility] HealthcareComment on above:Expected: 12/07/2024 (Approximate), Expires: 12/07/2025Start: 12-07-2024 End: 90-88-0798Yikvqhj function 2000 panel - Serum or PlasmaHepatic function panel Lab Routine Encounter for long-term 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 medication Expected: 12/07/2024 (Approximate), Expires: 12/07/2025N[facility] HealthcareComment on above: Expected: 12/07/2024 (Approximate), Expires: 12/07/2025Start: 12-07-2024 End: 23-52-2894Wnvqu 1996 panel - Serum or PlasmaLipid panel Lab Routine CAD in [place] artery ([facility]) Expected: 12/07/2024 (Approximate), Expires:12/07/2025 [facility] HealthcareComment on above:Expected: 12/07/2024 (Approximate), Expires: 12/07/2025Start: 12-07-2024 End: 71-28-8291Hwdfaftkxdf [Units/volume] in Serum or PlasmaTSH Lab Routine Adult hypothyroidism ([facility]) Expected: 12/07/2024 (Approximate), Expires: 12/07/2025N[facility] HealthcareComment on above:Expected: 12/07/2024 (Approximate), Expires: 12/07/2025Start: 12-07-2024 End: 03-68-6026Mlffwysar (T4) free [Mass/volume] in Serum or PlasmaT4, free Lab Routine Adult hypothyroidism ([facility]) Expected: 12/07/2024 (Approximate), Expires: 12/07/2025NOMS HealthcareComment on above:Expected: 12/07/2024 (Approximate), Expires: 12/07/2025Start: 12-07-2024 End: 91-83-5090Wqarirx encounter procedureNOMS CWM FMComment on above:Arrived Start: 11-30-2024 End: 83-16-6321Ujrxlps encounter igbdlhsph67/16/2025 11:30 AM EDT Office Visit [facility] [address] [place] [address] Cindy Bernal NP [address] [place] [address] ArrivedNOMS CWM FMComment on above:ArrivedStart: 09-06-2024 End: 91-29-1904Kuxvnjl evaluation of patient and yvmgby7809/06/2024 12:15 AM EST Nurse Only [facility] Part [address] [address] pacer remote checkFirelands Regional Medical CenterComment on above:pacer remote checkStart: 29-27-0731IJEBAFJA SCREENDIABETES SCREENPaulding County Hospitaltart: 06-21-2024 End: 41-77-9409Hazwywc encounter mplwdigme60/05/2024 1:00 PM EST Office Visit [facility] [address] [place] [address] Douglas Will MD [address] [place] [address] [facility] CWM FMStart: 06-03-2024 End: 66-78-4154Anjudmf encounter procedureNOMS TSR DERMComment on above:Arrived Start: 05-24-2024 End: 53-96-3480Mkfxpas encounter okvbngwjg31/08/2024 7:40 AM EDT Office Visit [facility] [address] [place] [phone] Lurdes Toney, [place] [address] [place] [address] ArrivedNOMS TSR DERMComment on above:ArrivedStart: 04-17-2024 COVID-19 Vaccine ()COVID-19 Vaccine ()[facility]Start: 79-82-6717PRTPM-19 Vaccine ()COVID- 19 Vaccine ()[facility]Start: 95-92-5357Qerka-19 Vaccine ()Covid-19 Vaccine ()[facility]: 02-92-1823Kblnfrtan vaccinationInfluenza Vaccine (#1)[facility]: 04-07-2024 End: 16-72-4808Oolzzjq encounter weqhpahay10/22/2024 11:30 AM EDT Office Visit [facility] [address] [place] [address] Douglas Will MD [address] [place] [address] ArrivedNOMS CWM FMComment on above:ArrivedStart: 03-31-2024 End: 36-27-7780Kraafun encounter lhfwwhwar37/15/2024 7:30 AM EDT Appointment [facility] [place] [address] [place] [address] Nolan Julio MD MPH [address] [address] [place] [address] [facility] ORStart: 03-29-2024 End: 55-23-6428Pnnqvurvsjpcdgvsaekhuvcnmy (EGD) w Dilation TTS Esophagogastroduodenoscopy (EGD) w Dilation TTS Endoscopy Routine Gastroesophageal reflux disease, unspecified whether esophagitis present Expected: 03/29/2024, Expires: 09/29/2025[facility] Service Area Work Phone: Comment on above:Expected: 03/29/2024, Expires: 09/29/2025Start: 03-16-2024 End: 46-18-1025Jpgthrd encounter ejnuqpcwl54/31/2024 10:40 AM EDT Office Visit [facility] [address] [address] Toni Moore MD [address] [place] [address] 1 year folow up with pacer check/BiotronikMERCY [facility] Comment on above:1 year folow up with pacer check/BiotronikStart: 03-16-2024 End: 86-44-7884Aiewabx encounter rsuwhzpvs58/31/2024 9:20 AM EDT Office Visit [facility] [address] [address] Toni Moore MD [address] [place] [address] 1 year folow up with pacer check/BiotronikMERCH3 [facility] Comment on above:1 year folow up with pacer check/BiotronikStart: 09-12-2023 COVID-19 Vaccine ()COVID-19 Vaccine () [facility]: 09-01-2023 End: 00-64-8570Zmiovie evaluation of patient and [facility] HospitalComment on above:Pacer remote checkStart: 83-54-1911Rnpccqz Directive DiscussionAdvance Directive DiscussionPaulding County Hospitaltart: 89-44-2949Sqgvyotdk B surface antibody levelLDL Cholesterol [facility]: 29-33-3081Yvwlff Wellness Visit (Medicare)Annual Wellness Visit (Medicare)FLORY CAGE [facility]: 05-21-2023 End: 55-45-6534Pnweazy encounter wmxjgkjpa26/05/2023 1:00 PM EDT Appointment [facility] Non-Invasive Cardiology [address] [place] [phone] EPIC/PTMercEduquia [facility] Non-Invasive CardiologyComment on above:EPIC/PTStart: 05-18-2023 End: 27-19-1682Hheevqj encounter /02/2023 11:00 AM EDT Office Visit [facility] Part [address] [address] Toni Moore MD [address] [place] [address] ed follow upTR[facility] Part [facility] HospitalComment on above:ed follow upStart: 05-12-2023 End: 24-46-6165Zoiuxoo encounter gvgmwcqca48/26/2023 11:20 AM EDT Appointment [facility] Medication Management [address] [place] [address] INR check-[facility] Medication ManagementComment on above:INR check-Start: 78-80-0239Fjldk-19 Vaccine ()Covid-19 Vaccine ()[facility]: 58-77-9802Ewuciupuo vaccinationInfluenza Vaccine (#1)[facility]: 33-25-3566Qizkt panel LipidsBon [facility] Community HospitalStart: 93-19-6741Keodvdglw vaccinationFlu vaccine (#1)[facility]: 03-11-2023 End: 79-55-2244Wnkcxpw encounter /26/2023 Office Visit Cardiology Toni Moore MD [address] [place] [address] [facility] Part [facility] HospitalStart: 03-11-2023 End: 09-88-2202Jdkljtp encounter qhktqimaw63/26/2023 Office Visit Cardiology Muriel Deal PA-C [address] [place] [address] [facility] Part [facility]: 03-03-2023 End: 03-12-7880Skaglps encounter rztylxfbn10/18/2023 [facility]ment [facility] Med[facility] ManagementStart: 02-20-2023 End: 90-64-2858Wlnwuxk encounter caaugdmao34/07/2023 [facility]ointment [facility] Med[facility] ManagementStart: 02-03-2023 End: 88-69-1179Gimtzeb encounter /20/2023 Appointment [facility] Medication ManagementStart: 01-06-2023 End: 82-48-2449Jmtqyne encounter procedureTR[facility]: 12-23-2022 End: 16-97-1879Dyoozfk encounter wqmudtksh89/09/2023 Appointment [facility] Medication ManagementStart: 12-08-2022 End: 58-25-9254Dfgfcve encounter procedureTR[facility]ITY [facility]: 12-02-2022 End: 73-78-9011Urxizsl evaluation of patient and zqmgyg1212/02/2022 Nurse Only [facility] CARDIOLOG[facility]: 11-28-2022 End: 64-03-4714Mxdmzaj encounter /14/2023 Appointment [facility] Medication ManagementStart: 08-26-2022 End: 78-16-4315Debygbu evaluation of patient and pztztx4808/26/2022 Nurse Only [facility] CARDIOLOGY Part [facility]: 85-96-6820OJCAHNO DIRECTIVE DISCUSSIONADVANCE DIRECTIVE DISCUSSIONPaulding County Hospitaltart: 46-05-6379IUGOYJURZB ASSESSMENTDEPRESSION ASSESSMENTPaulding County Hospitaltart: 54-24-7701Gaibfscwcz measurementCreatinine monitoringUniversity Hospitals Samaritan Medical Center Start: 81-08-7231Kbqwjzlhsd measurementCreatinine monitoringUniversity Hospitals Samaritan Medical CenterStart: 06-30-2022 End: 74-37-0519Dquaghn encounter /14/2022 Office Visit Cardiology Toni Moore MD [address] [place] [address] [facility] Part [facility]: 06-20-2022 End: 55-95-2423Cvbklmf encounter procedureTR[facility]ITY [facility] of [facility]: 94-89-5643OBBJJ-19 Vaccine (3 - Booster for Moderna series)COVID-19 Vaccine (3 - Booster for Moderna series)[facility] Start: 97-55-9445JEVCQ-19 Vaccine (3 - Moderna series)COVID-19 Vaccine (3 - Moderna series)[facility]ITALStart: 50-46-6129JFIKE-19 VACCINE (5 - Booster for Moderna series)COVID-19 VACCINE (5 - Booster for Moderna series) [facility]: 65-45-4043Dbwuuqqbxd A1c measurementDiabetes: Hemoglobin A0JGmcfirrtuiShelby Memorial HospitalStart: 06-09-2022 End: 67-82-5112Qruwtza encounter /24/2022 Appointment [facility] Medication ManagementStart: 06-06-2022 End: 68-42-6268Mlfihlj encounter vffmqngii24/21/2022 Appointment [facility] Medication ManagementStart: 04-28-2022 End: 10-17-6008Desfjjt encounter dzggzfxuo64/12/2022 Appointment [facility] Medication ManagementStart: 74-51-6841Jmkovqblq vaccinationFlu vaccine (#1)[facility]ITALStart: 02-27-2022 End: 92-91-2727Vyrueca encounter wyzypodrs49/14/2022 Appointment [facility] Medication ManagementStart: 02-24-2022 End: 51-34-7439Gtxuysi encounter procedureTR[facility]Start: 02-12-2022 End: 29-05-7847Onoipoj encounter zmwoqrtho29/29/2022 Appointment [facility] Medication ManagementStart: 02-10-2022 End: 04-12-2022 reactive protein [Mass/volume] in Serum or PlasmaC-REACTIVE PROTEIN (CRP) Lab Routine Knee pain, unspecified chronicity, unspecified laterality Expected: 02/10/2022, Expires: 04/12/2022[facility] Work Phone: comment on above:Expected: 02/10/2022, Expires: 04/12/2022tart: 02-10-2022 End: 04-88-5208Mvnyqzjdzvv sedimentation rateSED RATE WESTERGREN Lab Routine Knee pain, unspecified chronicity, unspecified laterality Expected:02/10/2022, Expires: 04/12/2022[facility] Work Phone: comment on above:Expected: 02/10/2022, Expires: 04/12/2022tart: 01-29-2022 End: 28-88-7637Ntvqxmk encounter nzakuxaxn64/15/2022 Appointment [facility] Medication ManagementStart: 19-52-8153FKXQJXOLCX, Provider: Nolan Julio, Status: Pen, Time: 1:15 PMVIRFUVLENA, Provider: Nolan Julio, Status: Pen, Time: 1:15 RHGV-Qrrhmdxhnnwiam-Dwm for Perioperative Med Work Phone: Start: 45-33-2327SMRBMLS, Provider: Nolan Julio, Status: Pen, Time: 8:00 AMSURGCMC, Provider: Nolan Julio, Status: Pen, Time: 8:00 HJNO-Zizrbazhnnixwr-Cxr for Perioperative Med Work Phone: Start: 12-13-2021 End: 40-96-8134Bnzeojj encounter pufannofj23/29/2022 Appointment [facility] Medication ManagementStart: 12-09-2021 End: 45-80-9297Kiaqmpf encounter leuvlgepj17/25/2022 Office Visit Cardiology Toni Moore MD [address] [place] [address] [facility] Part [facility]: 12-03-2021 End: 58-98-3180Cqsgnll evaluation of patient and ynqtih2512/03/2021 [facility] Part [facility]tart: 72-64-9750Nasyme Wellness Visit (AWV)Annual Wellness Visit (AWV)[facility] Start: 36-32-7124YRWSZ-19 VACCINE (4 - Booster for Moderna series)COVID-19 VACCINE (4 - Booster for Moderna series)[facility]: 63-05-1147NQSZJ- 19 Vaccine (2 - Booster for Moderna series)COVID-19 Vaccine (2 - Booster for Moderna series)[facility]: 83-51-3477OBABR-19 Vaccine (4 - Booster for Moderna series)COVID-19 Vaccine (4 - Booster for Moderna series)[facility]art: 83-33-5029BOUXFCG DIRECTIVE DISCUSSIONADVANCE DIRECTIVE DISCUSSIONPaulding County Hospitaltart: 40-14-0954XPVNSUJMXU ASSESSMENT DEPRESSION ASSESSMENTPaulding County Hospitaltart: 08-06-2021 End: 57-02-8607Gankapg encounter tynapniva40/21/2021 Office Visit Cardiology Toni Moore MD [address] [place] [address] [facility]: 48-84-1888AJRRDTDVNP, Provider: Nolan Julio, Status: Pen, Time: 2:15 PM VIRFUVLENA, Provider: Nolan Julio, Status: Pen, Time: 2:15 PM UD-Mxcsjki-Vasnvyv [address] [address] [place] Work Phone: Start: 07-29-2021 End: 57-26-0791Osomabz encounter auoyugbxs30/13/2021 Appointment [facility] Medication ManagementStart: 75-98-4312QWYNMMA, Provider: Nolan Julio, Status: Pen, Time: 12:00 [facility] [place], Provider: Nolan Julio, Status: Pen, Time: 12:00 FGZX-Delhdij-Padzikm [address] [address] [place] Work Phone: Start: 50-55-6912Oolcly Wellness Visit (AWV)Annual Wellness Visit (AWV)[facility]: 07-04-2021 End: 37-43-8460Gkkcwoy encounter aflpbeqeu90/18/2021 Appointment [facility] Medication ManagementStart: 69-03-7139Fptzsi Wellness Visit (AWV) Annual Wellness Visit (AWV)[facility]: 06-17-2021 End: 69-82-3973Jutyjko encounter ajmxwqsvs05/01/2021 Office Visit Cardiology Toni Moore MD [address] [place] [address] [phone] [facility]: 06-06-2021 End: 61-89-0806Rivqufg encounter eocxrbmzr10/21/2021 Appointment [facility] Medication ManagementStart: 46-10-7195Wudltj Wellness Visit (AWV) Annual Wellness Visit (AWV)[facility] Work Phone: start: 43-54-5626NACUXN, Provider: Nolan Julio, Status: Pen, Time: 10:30 AMEGDANS, Provider: Nolan Julio, Status: Pen, Time: 10:30 [facility]: Start: 04-30-2021 End: 49-84-9951Pyofsdo encounter qkmqnxriy10/14/2021 [facility] Med[facility] ManagementStart: 65-68-1777Xpwrveuigi measurement Creatinine [facility] [place], [place]Start: 15-06-3298Glnjtdoxo vaccination Flu vaccine (#1)[facility] Work Phone: start: 31-33-9145Tytcgkyyt monitoringPotassium [facility] HospitalStart: 27-57-5366SUG, Provider: Taurus Dobson, Status: Pen, Time: 8:30 AMMSO, Provider: Taurus Dobson, Status: Pen, Time: 8:30 AM MW-Cwbqvegujjzpia-Yqfdgzfh Work Phone: Start: 04-10-2021 End: 39-75-2018Hvbuxt Visit04/10/2021 Office Visit Cardiology Toni Moore MD [address] [place] [address] [facility]: 65-60-9304JXSJ, Provider: FLORIDALMA PROCEDURE ROOM 10,MG GASTRO, Status: Pen, Time: 10:00 AMEMOT, Provider: FLORIDALMA PROCEDURE ROOM 10,MG GASTRO, Status: Pen, Time: 10:00 [facility] Work Phone: Start: 26-91-5119Rtygaritln measurementCreatinine monitoringMercy Health- [place], [place]Start: 69-51-5150Llxryrwrp monitoringPotassium monitoringMercy Health- [place], [place]Start: 13-28-0646Oijrqhjlmc measurementCreatinine monitoringMercy Health- [place], [place]Start: 27-66-1552Dmxknjblx monitoringPotassium monitoringMercy Health- [place], [place]Start: 79-99-8436UEH, Provider: Nolan Julio, Status: Pen, Time: 1:15 PMNPV, Provider: Nolan Julio, Status: Pen, Time: 1:15 OJJD-Hvsubhdiwvpkis-Lexdcvg Voice Work Phone: Start: 94-60-4077Tpglth Wellness Visit (AWV)Annual Wellness Visit (AWV)[employer] Work Phone: start: 03-19-2021 End: 66-60-2119Bngdlqn encounter nrueicudu40/03/2021 [facility]ment [facility] Medication ManagementStart: 00-60-2328BAFWIGULQK, Provider: Daisha Lizarraga, Status: Pen, Time: 1:00 PMSWALLOWEVA, Provider: Daisha Lizarraga, Status: Pen, Time: 1:00 HDQZ-Suhornefrqfrvu-Epdknqqe Work Phone: Start: 99-17-6185AYCPN-19 Vaccine (3 - Booster for Moderna series)COVID-19 Vaccine (3 - Booster for Moderna series)[facility] [place] [employer] CorporationStart: 92-98-5291Dukzos Wellness Visit (AWV)Annual Wellness Visit (AWV)[employer] Home Phone: start: 02-20-2021 End: 08-74-2983Bkbfdcx encounter ucgbdaepc86/07/2021 [facility]ment [facility] Medication ManagementStart: 02-53-4804Ttdjuw Wellness Visit (AWV) Annual Wellness Visit (AWV)[employer] Home Phone: start: 01-07-2021 End: 44-40-1199Smgazcp encounter dmikaspsw18/24/2021 [facility] Medication ManagementStart: 12-07-2020 End: 18-38-9381Wgkwsv Visit12/07/2020 Office Visit Cardiology Toni Moore MD [address] [place] [address] [phone] [facility]Start: 12-04-2020 End: 54-23-6089Agmcl Only12/04/2020 [facility] 07-11-2020 End: 78-09-2563Hxbhzdeihlc90/25/2020 [facility] Medication ManagementStart: 07-04-2020 End: 14-39-6881Sraxwz Visit07/04/2020 Office Visit Cardiology Toni Moore MD [address] [place] [address] [phone] [facility] HospitalStart: 06-19-2020 End: 12-75-6975Irgqvffhhze25/03/2020 Appointment [facility] Medication ManagementStart: 06-04-2020 End: 89-78-0647Hrtclh Visit06/04/2020 Office Visit Cardiology Toni Moore MD [address] [place] [address] [phone] [facility] CARDIOLOGYStart: 05-09-2020 End: 21-34-7969Oqwaeu Visit05/09/2020 Office Visit Cardiology Toni Moore MD [address] [place] [address] [phone] [facility] HospitalStart: 04-27-2020 End: 34-97-5338Vbcgoy VisitTRINITY [facility]ALTH [facility] HospitalStart: 46-80-0290Cckxnumul vaccinationFlu vaccine (#1)[facility]- [place], [place]Start: 04-13-2020 End: 10-98-8293Dtjfmaratmm41/28/2020 Appointment [facility] Medication ManagementStart: 03-26-2020 End: 40-30-1475Eoxsib Visit03/26/2020 Office Visit Cardiology Toni Moore MD [address] [place] [address], [place] [address] [phone] [facility]: 03-07-2020 End: 86-57-0850Ndigfiypjnp51/22/2020 Appointment [facility] Medication ManagementStart: 02-14-2020 End: 12-60-6994GjaijhxcsrmRzzaz [facility] Medication ManagementStart: 12-26-2019 End: 03-06-9616Czghva Visit12/26/2019 Office Visit Cardiology Toni Moore MD [address] [place] [address], [place] [address] [facility] CARDIOLOGYStart: 57-33-4873Dxrgpzpben measurement Creatinine monitoringKettering Health [place], KYStart: 86-96-6405Nppzwennah monitoring Creatinine [facility] [place], [place]Start: 24-81-4511Kurqnujic monitoring Potassium [facility] [place], [place]Start: 11-29-2019 End: 33-80-2998Xqdvj Only11/29/2019 [facility] Start: 11-28-2019 End: 26-69-7192Iczsrv [facility] CARDIOLOGYStart: 11-16-2019 End: 55-34-0409Tpduorhzpon46/01/2020 Appointment [facility] Medication ManagementStart: 07-13-2019 End: 52-34-4716Xnghkaorzau11/27/2019 Appointment [facility] Medication ManagementStart: 06-28-2019 End: 13-86-1443Dhbudoaiwco58/12/2019 Appointment [facility] Medication ManagementStart: 06-13-2019 End: 05-18-7422Paueml Visit06/13/2019 Office Visit Cardiology Toni Moore MD [address] [place] [address], [place] [address] [facility] CARDIOLOGYStart: 06-06-2019 End: 93-78-6444Amaqrxcyimj11/21/2019 Appointment Stress LabMTHZ Stress LabStart: 05-30-2019 End: 30-17-6597Gwpzwf VisitBIANCA [facility]INA CARDIOLOGYStart: 04-26-2019 End: 67-75-4508Ijownxtpuxt96/10/2019 [facility] Medication ManagementStart: 48-01-7079Vkzpoqrle vaccinationFlu vaccine (#1)[facility]: 40-86-0035Vlnorlhcuvn Syncytial Virus (RSV) or age 60 yrs+ (1 - 1-dose 75+ series)Respiratory Syncytial Virus (RSV) or age 60 yrs+ (1 - 1-dose 75+ series)[place] [facility] CenterStart: 32-09-3420DYE High Risk: (Elderly (60+) or Population) (1 - 1-dose 75+ series)RSV High Risk: (Elderly (60+) or Population) (1 - 1-dose 75+ series) [facility]: 91-89-3992IBA Vaccine (1 - 1-dose 75+ series)RSV Vaccine (1 - 1-dose 75+ series)[facility]: 07-07-2013 Shingles Vaccine (2 of 3)Shingles Vaccine (2 of 3)[facility]: 07-07-2013 Shingrix Vaccine (2 of 3)Shingrix Vaccine (2 of 3)[facility]: 62-06-2724GHBJ DENSITYBONE DENSITYPaulding County Hospitaltart: 52-36-5135Clma Density ScreeningBone Density ScreeningPaulding County Hospitaltart: 20-91-9649YYER (modify frequency per FRAX score)DEXA (modify frequency per FRAX score)[facility]: 71-04-0246Fkrl Risk ScreeningFall Risk ScreeningBluffton Hospital SystemStart: 76-89-4213QITDAMFQD AGE 65 AND OVER WITH 5YR LOOKBACK (#1)PNEUMOVAX AGE 65 AND OVER WITH 5YR LOOKBACK (#1)[facility]: 2004 Screening for osteoporosisBone Density ScreeningPaulding County Hospitaltart: 85-42-3029Jnbuyfarrmn Syncytial Virus (RSV) or age 60 yrs+ (1 - 1-dose 60+ series)Respiratory Syncytial Virus (RSV) or age 60 yrs+ (1 - 1-dose 60+ series)[facility]: 03-13-6027QSE patients and/or patients aged 60+ years (1 - 1-dose 60+ series)RSV patients and/or patients aged 60+ years (1 - 1-dose 60+ series)[facility]: 05-90-4652UXX Vaccine (1 - 1-dose 60+ series)RSV Vaccine (1 - 1- dose 60+ series)[facility]: 96-52-4174Byibboclr for osteoporosisDEXA (modify frequency per FRAX score)[facility]: 05-37-4596XCMMWKOH VACCINE (1 of 2)SHINGRIX VACCINE (1 of 2)[facility]: 01-32-3069GJSHZBCO VACCINE (1 of 2)SHINGRIX VACCINE (1 of 2)[facility]: 34-07-0778Pzrfl screening for proteinCKD: Urine Protein ScreeningSelect Medical [facility] [place]: 34-14-0218Lxppskn ScreeningAnxiety ScreeningUniversity Hospitals Health System Start: 13-12-3774Rwpwygdvzo ScreeningDepression ScreeningPaulding County Hospitaltart: 36-05-6072Ssinnneql B surface antibody levelLDL CHOLESTEROLUniversity Hospitals Health System Start: 08-65-0427TEMBB-19 Vaccine (1)COVID-19 Vaccine (1)[facility] Work Phone: start: 30-36-9524WWLNW-19 Vaccine (1)COVID-19 Vaccine (1)[facility]: 58-98-3017Upfeiytgmt ScreenDepression ScreenUniversity Hospitals Samaritan Medical Center Start: 99-11-7415Mihophpsxykm Vaccine: 65+ (1 - PCV)Pneumococcal Vaccine: 65+ (1 - PCV)[facility]: 90-70-2055PUJIJBHBWNZX: 65+ (1 - PCV)PNEUMOCOCCAL: 65+ (1 - PCV)[facility]: 90-52-8344BTPGS-19 Vaccine (1)COVID-19 Vaccine (1)[facility]: 50-10-2908Bvlzds Wellness Visit (AWV)Annual Wellness Visit (AWV)[facility]: 43-48-9155Opjcn panelLipid Panel [facility]Start: 1939Medicare Annual Wellness Visit Medicare Annual Wellness Visit (AWV)[facility] HospitalBasi metabolic 2000 panelBasic Metabolic Panel (BMP) Lab Routine Daily until discontinued starting 04/03/2020, 4 completedKindred HealthcareHopsFromVirginia.com- [place], [place]Comment on above:Daily until discontinued starting 04/03/2020, 4 completed End: 68-02-7884Ttfbbks [Mass/volume] in Serum or PlasmaCalcium Lab Routine Age- related osteoporosis without current pathological fracture 1 Occurrences sta rting 01/13/2025 until 01/13/2026[employer] Work Phone: Comment on above:1 Occurrences starting 01/13/2025 until 6CBC auto differentialCBC auto differential Lab Routine Daily until discontinued starting 04/03/2020, 4 completed[facility] Outcome Referrals- [place], [place]Comment on above:Daily until discontinued starting 04/03/2020, 4 completedCBC panel - Blood by Automated countCBC Lab Routine Morning draw (Lab) until discontinued starting 03/29/2024, 4 completedUnLicking [facility] Work Phone: Comment on above:Morning draw (Lab) until discontinued starting 03/29/2024, 4 completed End: 01-71-6314QWP W Auto Differential panel - BloodCBC auto differential Lab Routine Tomorrow AM for 99 Occurrences starting 03/22/2025 until 06/28/2025, 3 completedBon SecLink To Media HealthComment on above:Tomorrow AM for 99 Occurrences starting 03/22/2025 until 06/28/2025, 3 completed End: 13-54-3851Qrwwtvgcmeyau Metabolic Panel w/ Reflex to MGComprehensive Metabolic Panel w/ Reflex to MG Lab Routine Tomorrow AM for 99 Occurrences starting 03/22/2025 until 06/28/2025, 3 completedBon SecLink To Media HealthComment on above:Tomorrow AM for 99 Occurrences starting 03/22/2025 until 06/28/2025, 3 completed End: 29-14-5945Nnxpmiskrr Pulse oximetry, In Phase 1[facility] Work Phone: Comment on above:Continuous until discontinued starting 4Dermatopathology examDermatopathology exam Pathology and Cytology Timed Rash and other nonspecific skin eruption ReleaseUpon Ordering for 1 Occurrences starting 05/24/2024[facility] [employer] Work Phone: comment on above:Release Upon Ordering for 1 Occurrences starting 05/24/2024 End: 02-15-0398Rip bone density study 1/> sites axial skelDXA-AXIAL SKELETON Radiology Routine Spinal stenosis of lumbar region, unspecified whether neurogenic claudication present 1 Occurrences starting 02/06/2022 until 03/08/2023[facility] Work Phone: comment on above:1 Occurrences starting 02/06/2022 until 03/08/2023EKG 12 leadCleveland Clinic Mentor Hospital Health- [place], [place]Comment on above:As Needed until discontinued starting 04/03/2020EKG 12 leadEKG 12 lead ECG Routine As Needed until discontinued starting 04/02/2022ON [employer] Work Phone: comment on above:As Needed until discontinued starting 04/02/2022EKG 12 leadEKG 12 lead ECG Routine 04/03/2022 2:29 AM EDTBON [employer] Work Phone: ekg 12 LeadEKG 12 Lead ECG Routine 04/03/2022 4:47 AM EDTBON [employer] Work Phone: ekg 12 LeadEKG 12 Lead ECG STAT 03/20/2025 10:36 AM EDTBon FanHeroEKG 12 LeadBon FanHeroEKG 12 LeadEKG 12 Lead ECG STAT 06/05/2025 3:16 PM EDEchoFirston [employer] Work Phone: Electrocardiogram, 12-lead PRN ACS symptoms Electrocardiogram, 12-lead PRN ACS symptoms ECG Routine As needed until discontinued starting 03/28/2024, 1 [facility] Work Phone: Comment on above:As needed until discontinued starting 03/28/2024, 1 completedElectrocardiogram, 12-lead PRN ACS symptoms Electrocardiogram, 12-lead PRN ACS symptoms ECG Routine 03/28/2024 10:45 PM EDT [facility] Work Phone: Electrophoresis Protein, SerumElectrophoresis Protein, Serum Lab Routine Normocytic anemia 02/16/2025 4:05 [address] [facility] Vincent HospitalElectrophysiology procedureElectrophysiology procedure CV Electrophysiology Routine Atrial fibrillation, unspecified type (HCC) 04/26/2025 9:35 AM [employer] End: 56-16-5199Eunqpza [Mass/volume] in Serum or PlasmaPOCT Glucose Point of Care Testing Routine One Time for 1 Occurrences starting 04/26/2025 until 04/17on FanHeroComment on above:One Time for 1 Occurrences starting 04/26/2025 until 04/26/2025 End: 48-50-1879GXEVYYNS PACU OXYGEN THERAPY PROTOCOLInitiate PACU Oxygen Therapy Protocol Respiratory Care Routine Continuous until discontinued starting 04/26/2025 [employer] Work Phone: Comment on above:Continuous until discontinued starting 04/26/2025IR CENTRAL LINE REMOVALIR CENTRAL LINE REMOVAL Radiology Routine Infection of prosthetic joint, subsequent encounter Ordered: 05/09/2022 [facility] Work Phone: comment on above:Ordered: 05/09/2022Magnesium [Mass/Vol]Magnesium Lab Routine Daily until discontinued starting 04/05/2020, 2 completedK[facility] [place], AKComment on above:Daily until discontinued starting 04/05/2020, 2 completedMagnesium [Mass/volume] in Serum or PlasmaMagnesium Lab Routine Morning draw (Lab) until discontinued starting 03/29/2024, 4 completed [facility] Work Phone: Comment on above:Morning draw (Lab) until discontinued starting 03/29/2024, 4 completedMicroorganism identified in Unspecified specimen by CultureAFB CULT + STAIN Microbiology Routine S/P revision of total knee, right 03/31/2022 4:21 PM [facility] Work Phone: Oxygen therapy [Minimum Data Set]Initiate Oxygen Therapy Protocol Respiratory Care Routine Daily until discontinued starting 04/03/2020Kindred HealthcareOptiantComment on above:Daily until discontinued starting 04/03/2020Oxygen therapy [Minimum Data Set]Initiate Oxygen Therapy Protocol Respiratory Care Routine As Needed until discontinued starting 04/02/2022 [employer] Work Phone: comkpgi on above:As Needed until discontinued starting 04/02/2022xygen therapy [Minimum Data Set]Initiate Oxygen Therapy Protocol Respiratory Care Routine As Needed until discontinued starting 03/21/2025 [employer] on above:As Needed until discontinued starting 03/21/2025Oxygen therapy [Minimum Data Set]Initiate Oxygen Therapy Protocol Respiratory Care Routine As Needed until discontinued starting 04/26/2025 [employer] on above:As Needed until discontinued starting 04/26/2025Patient EducationWound Care [facility] Work Phone: Patient [facility] Work Phone: Percutaneous coronary interventionCardiac procedure CV Cardiac Cath Routine Atrial fibrillation, unspecified type (HCC) 04/26/2025 9:35 AM [employer] Work Phone: End: 37-93-5150Dvlbdgylx [#/volume] in BloodPlatelet Count Lab Routine One Time for 1 Occurrences starting 04/26/2025 until 04/26/2025on [employer] Comment on above:One Time for 1 Occurrences starting 04/26/2025 until 04/26/2025 Kaubdyx-HGJYkpqklw-DFM Lab Routine Daily until discontinued starting 04/03/2020, 4 completedKindred HealthcareMediaVastment on above:Daily until discontinued starting 04/03/2020, 4 completed End: 91-90-8154Uqbpvaz-INRProtime-INR Lab Routine Daily for 3 Weeks starting 04/04/2022 until 04/24/2022 [employer] Work Phone: comyltm on above:Daily for 3 Weeks starting 04/04/2022 until 2Pulse oximetry, spotPulse oximetry, spot Respiratory Care Routine Every 4 hours as needed. For RT orders only. until discontinued starting 03/29/2024[facility] Work Phone: Comment on above:Every 4 hours as needed. For RT orders only. until discontinued starting 4Radex spine lumbosacral 2/3 viewsXR LUMBAR GENERAL 3V AP/LAT/L5-S1 Radiology Routine Spinal stenosis of lumbar region, unspecified whether neurogenic claudication present Lumbar radiculopathy, chronic Pain in left wrist Spinal stenosis of lumbar region with neurogenic claudication 12/30/2021 9:46 AM [facility] Work Phone: Renal function 2000 panel - Serum or PlasmaRenal Function Panel Lab Routine Morning draw (Lab) until discontinued starting 03/29/2024, 4 [facility] Work Phone: Comment on above:Morning draw (Lab) until discontinued starting 03/29/2024, 4 completedSurgical pathology [facility] Work Phone: comment on above:Release Upon Ordering for 1 Occurrences starting 03/31/2024, 1 completed End: 79-67-9325Qmir table testTilt table test Cardiac Services Routine Essential hypertension ASHD (arteriosclerotic heart disease) Chronic diastolic congestive heart failure (HCC) History of DVT (deep vein thrombosis) Cardiac pacemaker in situ 1 Occurrences starting 06/10/2019 until 06/10/2019[facility] [place] Comment on above:1 Occurrences starting 06/10/2019 until 06/10/2019 End: 79-96-9147EF Heart TransesophagealBon [facility]oster Community HospitalComment on above: One Time for 1 Occurrences starting 04/26/2025 until 04/26/2025XR FOREARM GENERAL 2V AP/LAT LEFTXR FOREARM GENERAL 2V AP/LAT LEFT Radiology Routine Pain in left wrist 12/30/2021 9:46 AM [facility] Work Phone: XR WRIST GENERAL 3V PA/LAT/OBL LEFTXR WRIST GENERAL 3V PA/LAT/OBL LEFT Radiology Routine Spinal stenosis of lumbar region, unspecified whether neurogenic claudication present Lumbar radiculopathy, chronic Pain in left wrist Spinal stenosis of lumbar region with neurogenic claudication 12/30/2021 9:46 AM [facility] Work Phone: [facility] Immunizations Immunization DateImmunizationNotesCare WmbcbvleFocydacq16-00-0641lkeveisdz, high dose seasonal, preservative-freeLi Taylarainjeannette WONG Work Phone: [facility] CenterErxqfhnwyd21-39-2608ctdscavju virus vaccine, unspecified formulationRhoda Higgins MD Work Phone: [phone]11-07-2023zoster vaccine recombinantAlexandra [facility]09-16-2023influenza virus vaccine, unspecified formulationKathy Lue [facility]09-16-2023Influenza, High-dose, QuadrivalentAlexandra [facility]09-16-2023pneumococcal 20-valent conjugate vaccineKathy Lue [facility]09-16-2023zoster vaccine recombinantKathy Lue [facility]06-27-2023tetanus toxoid, reduced diphtheria toxoid, and acellular pertussis vaccine, adsorbedAlexatarare Teodora CLARK Work Phone: [facility] on above:Result Comment: 2023-06-11: VIS DATE: [id number] virus vaccine, unspecified formulationRobert Minus [facility]08-30-2022Influenza, High-dose, QuadrivalentAlexandra [facility]08-30-2022SARS-CoV-2 (COVID-19) mRNA-0523 vaccineRobert RICE [facility]y11-09-2021COVID-19, [facility], Primary or Immunocompromised, (age 12y+), IM, 100 mcg/0.5mLKarsten Dyer MD Work Phone: bon [facility] on above:Result Comment: 2023-02-02: [id number] virus vaccine, unspecified formulationRobert RICE [facility] [place] 338201-09-2021influenza, high dose seasonal, preservative-freeWhite Mountain Regional Medical CenterxandJames E. [facility]09-24-2020influenza virus vaccine, unspecified formulationRobert RICE [facility]09-24-2020influenza, high dose seasonal, preservative-freeJonathan F Houston Work Phone: [phone]-Thhzqsvgujljvatu-Bolformerly [facility], [facility] 6 I Work Phone: [phone] virus vaccine, unspecified formulationSt. Bernards Behavior[facility] Hospital10-11-2019influenza virus vaccine, unspecified formulationRobert RICE [facility] Hospitaly10-11-2019influenza, high dose seasonal, preservative-freeJonathan F Houston Work Phone: [phone]-Fdeceflqtiszqgcb-[facility] 6 I Work Phone: [phone] toxoid, reduced diphtheria toxoid, and acellular pertussis vaccine, adsorbedJonathan F Darryl Work Phone: [facility] [place] 338201-06-2018tetanus toxoid, reduced diphtheria toxoid, and acellular pertussis vaccine, adsorbedJonathan F Houston Work Phone: [facility] Health SystemJovqxu71-34-3806kotutscnz virus vaccine, unspecified formulationRobert RICE [facility] Hospitaly10-01-2018influenza, high dose seasonal, preservative-freeJonathan F Houston Work Phone: [facility] SystemVusehj86-15-8980qjxwvvnlz virus vaccine, unspecified formulationChHenry County HospitalJmbdul40-49-2713lwfzyyvcj, seasonal, injectableJonathan F Darryl Work Phone: [phone]-Myfudfxnruxycfcc-[place] 6 I Work Phone: [phone]pa, high dose seasonal, preservative-freeJennifer Rohrbacher Other [place] [employer] Other 0159127-38-3336vcduqczdl virus vaccine, unspecified formulationGood Samaritan Hospital04-13-2017pneumococcal conjugate vaccine, 13 valentJonathan F Houston Work Phone: [facility]y11-05-2015pneumococcal conjugate vaccine, 13 valentChHenry County Hospital- [place], LH88-81-6204wwrbinhzf virus vaccine, whole virusChHenry County Hospital09-26-2013zoster vaccine, liveJonathan F Darryl Work Phone: [facility]y10-18-2011pneumococcal polysaccharide vaccine, 23 valentJonathan F Darryl Work Phone: [facility]y10-17-2011pneumococcal polysaccharide vaccine, 23 valentJennifer Rohrbacher Other [facility]01-01-2008 pneumococcal polysaccharide vaccine, 23 valentJonathan F Houston Work Phone: [facility]y01-01-1999pneumococcal polysaccharide vaccine, 23 valentJonathan F Darryl Work Phone: [facility] ThiernoyNEGATED: Highlighted row has not occurred!22-44-1446LVQB-CoV-2 (COVID- 19) Ad26 vaccine, recombinantRobert RICE [facility] Joann NEGATED: Highlighted row has not occurred!05-06-2018 pneumococcal conjugate vaccine, [address] [facility] Medical CenterComment on above:Deferred: - recieved 2 years agoNEGATED: Highlighted row has not occurred! 17-92-7671shnzoxyegstn polysaccharide vaccine, 23 valentCast Indp Work Phone: [facility] Work Phone: Comment on above:Deferred: OTHER Payers DatePayer CategoryPayerPolicy [id number] MedicareMEDICARE MEDICARE PART A AND B xxxxxxxxxxx 2014-Present [phone] [address] [place], [id number] [id number]64IijaoekTPYMKF OF [facility] MEDICARE SUPP xxxxxx-xx 2014-Present [phone] ATTN INDIVIDUAL C [address] OF [facility], [place] [address]tftqcl-nu [id number]8-6962Hcdwgye Care Other (unspecified)[employer] [place] Member Subscriber Plan / Payer (Effective 2010-Present) Name: Leyla Lambert Relation to Subscriber: Self Name: Leyla Lambert Payer ID: Not on file Group ID: [id number] Type: Not on file Address: [address] [place] [id number] [id number] or OtherMUTUAL OF [place] 1.2.840.619220.1.13.647.2.7.9.026905.329755.39500-37-2051Oztnwwr Health Insurance1.2.840.882033.1.13.693.2.7.9.386391.325122.14555-63-2717Etaxlvh 41-61-6930TtootjtQEBOAS OF [place] [facility] MEDICARE SUPPLEMENT [id number] 2010-Present [phone] [address] [place] [address] Blfezorvphgdl2575 1.2.840.485782.1.13.159.2.7.3.252768.81699-13-9250Cdjvuyc [id number] 1.2.840.276163.1.13.239.2.7.3.823918.315 2004MedicareMEDICARE MEDICARE A AND B [id number] 2004-Present [phone] [address] [address] [place] [address] [id number] 1.2.840.720457.1.13.159.2.7.3.831367.315 2004Medicare 1.2.840.467202.1.13.159.2.7.3.066756.315 [id number] 1.2.840.203818.1.13.239.2.7.3.245786.91310-93-6178Jlinfqs5437977704-32-8559 [id number] 2.16.840.1.450629.3.579.[id number] 2.16.840.1.798667.3.579.2.83144-81-9612Uebfwvo0514502 2.16.840.1.141044.3.579.2.69170-57-5820Ojxmjmt4597688 2.840.1.349603.3.579.2.18055-28-8880Azvfcbw7382479 2.16840.1.383196.3.579.2.98042-23-7542Vzcnlxz18782977 2.16840.1.643269.3.579.2.58960-39-9653Oqynilf03924155 2.840.1.226627.3.579.2.38994-29-1699Jmyqauk07533731 2.16840.1.439919.3.579.2.17330-39-6573Wngvjbc25594625 2.16.840.1.821804.3.579.2.33221-30-6226Ocgtgsf116074955 2.16.840.1.542097.3.579.2.73324-93-9911Ypicnlc42220844 2.16840.1.825169.3.579.2.874256-75-6311Dnpeymw22003751 2.16840.1.707485.3.579.2.949851-95-8513Epndrpk80770730 2.16840.1.557553.3.579.2.415311-18-2120Judpfma006019866 2.16840.1.121733.3.579.2.607767-56-5574Hwjsrev62280987 2.16840.1.142939.3.579.2.347011-90-8380Rzsbybe24715802 2.16840.1.307810.3.579.2.231349-84-3896Nifqkqe91508076 2.16840.1.133300.3.579.2.747600-27-5263Pwkxmec60261535 2.0.1.195790.3.579.2.138598-46-4042Hhykbhz91178158 2.840.1.612815.3.579.2.848794-28-4586Qhkpibp88356869 2.0.1.366490.3.579.2.475575-22-2006Ksznlns84681678 2..1.521018.3.579.2.850523-10-3044Dibyyfh357510841 2.840.1.596286.3.579.2.7324-91-8028Gjcvddb069544216 2.16840.1.386304.3.579.2.066368-58-5525Njievoj59444892 2.16840.1.122716.3.579.2.080284-47-0842Jydytgn30300198 2.16840.1.872064.3.579.2.242809-91-5284Sizdlar099706949 2.16840.1.516415.3.579.2.573719-44-4046Yrrfynw355800421 2.160.1.037201.3.579.2.991460-91-3121Ktfaflj288612757 2.16840.1.715746.3.579.2.945646-83-1436Goxsfhd547874280 2.0.1.933413.3.579.2.806497-52-2458Venjwbw363232520 2.0.1.716596.3.579.2.486259-91-7001Sqdhnvl462787426 2.0.1.076711.3.579.2.036047-86-6353Dtlmbgq451942060 2.0.1.237105.3.579.2.610846-90-5242Vtthjxz21027805 2.0.1.953161.3.579.2.437873-41-8599Zbmyvgy09476646 2..1.929405.3.579.2.602262-78-2658Mcpfzwl81454351 2.0.1.959389.3.579.2.099765-90-0054Ygaimnt35388281 2..1.261717.3.579.2.606344-33-4353Cwkfhdo26258948 2.0.1.227771.3.579.2.597370-90-1399Azgskbc24034562 2.0.1.272864.3.579.2.957505-82-6495Ahozzbv41165932 2.16840.1.429294.3.579.2.249536-83-2029Pjjuqvn82443055 2.840.1.627254.3.579.2.359969-01-6710Fhyxwpx65968453 2.16.840.1.571533.3.579.2.615853-45-9096Hcngaty7388734 2.16.840.1.636671.3.579.2.838066-32-4869Zvapvdk2649879 2.16.840.1.206978.3.579.2.404311-13-8756Cmqiyvp2477585 2.16.840.1.316903.3.579.2.031507-41-2423Ygwacms0692132 2.16840.1.159863.3.579.2.814667-25-6456Lsjdjcg6223435 2.16840.1.911695.3.579.2.698550-29-0375Fyycyld3942342 2.16840.1.298208.3.579.2.261362-03-6063Lbqcpry3046666 2.840.1.116596.3.579.2.710435-91-7156Aipjlfk656919810 2.16840.1.258709.3.579.2.81258-29-0652Ogwntsi42169922 2.840.1.972006.3.579.2.06303-69-5977Frmydxi59431323 2.16840.1.223966.3.579.2.76884-35-9216Goxaawf62171578 2.16840.1.238212.3.579.2.88747-47-8437Tbheszs67141263 2.16.840.1.917043.3.579.2.35621-52-8207Devzbla16117525 2.16840.1.319626.3.579.2.07370-00-8049Mokletx60866232 2.840.1.130782.3.579.2.33639-63-6401Pcplphh65469590 2.840.1.467824.3.579.2.44820-74-2119Qklhqnx72669688 2.0.1.455843.3.579.2.47812-86-2604Qbrrqpp58387790 2.0.1.498335.3.579.2.63014-34-1599Avbftnr23795852 2..1.002168.3.579.2.64163-66-6751Auhorkz98770368 2..1.454045.3.579.2.18402-92-1577Nombkmm72341793 2..1.315242.3.579.2.77628-31-4580Jqashbl63969755 2..1.166560.3.579.2.58310-49-1379Idujvor12921350 2..1.922864.3.579.2.41614-55-2600Qnyuvad54543532 2..1.459478.3.579.2.32158-25-1139Qcyhnwj36116369 2.0.1.153323.3.579.2.22352-30-8582Axxvfmb22178217 2.0.1.535214.3.579.2.56187-14-4068Eejvtvo83865969 2.840.1.641682.3.579.2.14906-19-8441Dgpcqus94790343 2.0.1.539363.3.579.2.15001-88-4406Zhsodwp05770630 2.0.1.411089.3.579.2.636Ybvplem02168586 2.16.840.1.569123.3.579.2.531 Social History DateTypeDetailFacilityStart: 12-01-2018 End: 63-98-2970Jcazfjs smoking status NHISFormer smokerOhioHealth [facility]: 08-17-1951 End: 74-58-6970Zquwhgp of tobacco useCurrent smokerOhioHealth Nelsonville Health Center: 08-17-1951 End: 18-97-6503Alqgwdc of tobacco useCigarette SmokerOhioHealth Nelsonville Health Center: 12-01-2018 End: 08-74-8202Xukzgeanfr smoked current (pack per day) - ReportedPaulding County Hospitaltart: 12-01-2018 End: 28-25-4207Cvmxoko intakeNoOhioHealth Nelsonville Health Center: 89-49-9120Bom Assigned At BirthNot on fileOhioHealth Nelsonville Health Center: 06-27-2019 End: 00-39-1596Ywaxemv intakeCurrent non-drinker of alcohol (finding)[place], [place]Exposure to SARS-CoV-2 (event)Unable to assessBurn[place], [place] Start: 04-02-2020 End: 37-95-3061Jnekzrd use and exposureNever usedOhioHealth Nelsonville Health Center: 02-28-2020 End: 16-94-7909Locejyel to SARS-CoV-2 (event)Not sureOhioHealth Nelsonville Health Center: 30-55-3645Ogf Assigned At BirthAvita Health System Galion Hospitaltart: 03-25-2020 End: 54-80-6896Qfffccu SDOH Gdonpwegn6Uzizoxgze ClinicStart: 03-25-2020 End: 59-16-0421Blpibqh SDOH Food Aqcfh9Gwwdswacw ClinicStart: 03-25-2020 End: 82-58-8056Oexqidr SDOH Transport Gmk1Wggeccdmw ClinicStart: 06-19-2023 Tobacco smoking statusNeverExec[facility] (I/We) worried whether (my/our) food would run out before (I/we) got money to buy more.Never [facility] HospitalIn the past 12 months, was there a time when you were not able to pay the mortgage or rent on time?[facility] Work Phone: Start: 12-16-2023 End: 53-80-0370Efjestl smoking status NHISNever smoked tobaccoShelby Memorial Hospital Work Phone: Start: 43-77-4315Waihga identityIdentifies as female gender (finding)NOM[facility] HealthcareHow often to you have a drink containing alcohol? NeverShelby [facility] Hospital Work Phone: How hard is it for you to pay for the very basics like food, housing, medical care, and heatingNot very hardUnLicking Memorial Hospital Work Phone: Do you feel stress - tense, restless, nervous, or anxious, or unable to sleep at night because yourmind is troubled all the time - these days [OSQ]Not at allProMedioh Health SystemStart: 39-67-6924Eanaoiy CommentSmoked less in pastProMedioh Health SystemStart: 09-26-2012 End: 36-80-4640NyoHezcor (finding)[facility] SystemHow often do you need to have someone help you when you read instructions, pamphlets, or other written material from your doctor or pharmacy [SILS]SometimesNOMS HealthcareAre you now , , , , never or living with a partner? MarriedNOMS HealthcareDo you feel stress - tense, restless, nervous, or anxious, or unable to sleep at night because yourmind is troubled all the time - these days [OSQ]Only a littleNOMS HealthcareStart: 60-02-1751Iitodmcpl beverage intake Lifetime non-drinker (finding)[facility] Medical Equipment Procedure CodeEquipment CodeEquipment Original TextEquipment IdentifierDatesLead Pacemkr [facility] Bip Capsure 52cm - [id number]_cwfUiwvj: 06-67-1324Xruq Pacemkr Ventric Biplr Capsure 45cm - [id number]_kogAwypq: 03-04-2017 Pacemaker Advisa Mri A2dr01 - [id number]_fzsRhluq: 41-88-5785Edfi Powerline Surecuff 5fr Polyurethane Catheter 1 Lumen Microintroducer - [id number]_lexVvvvz: 61-25-6008Yqdesx Simplex P Tobramycin Bone Full Dose Radiopaque Preblend Sterile - [id number]_hrwOyimh: 85-17-4890Hy Legion Titanium Tib Ohwl2330306_ahnBjyqo: 83-16-5351Jecrxs Link Vkcimpwa2152564_gws Start: 24-86-6904Hfiltnlfkt Hk Threaded Jsuh3626846_yppGstlh: 19-19-2703Pufcgoy on above:Description: check for priceHyperextension Stop With Axle Plugs Legion [id number]_zxwRisve: 47-01-2105Pi Lgn Hk Vpt4280671_xhqIsgvy: 47-16-8404Vucjili on above:Description: check for priceLegion Hk 13mm [place] And Sleeve [id number] 2381110_impStart: 84-41-4393Zromkp Hk Gm Tib Isrt 13mm Sz 2-3 Rt [id number] 2381111_impStart: 11-00-8487Qobgxkxtsi Medium Stockwell Cement Disposable Poultry Barn Manager Distal - [id number]_vioObjkx: 91-38-0137Ccql Legion 12mm 120mm Femoral Press Fit Knee - [id number]_vstXdmyb: 44-24-2857Nxe Hk Dis Fem Wdg Sz4 10mm - [id number]_nnzTejkn: 23-38-1814Ycd Hk Dis Fem Wdg Sz4 10mm - [id number]_fulNepaj: 45-11-4442Mfch Legion 12mm 160mm Femoral Press Fit Knee - [id number]_ivmLuaka: 95-62-0570Wmuupx Adapt Legion 13mm Hinged Kn [place]om - [id number]_ilrAdbfs: 32-76-0199Isswby Hk Gd Motion Isrt 13mm Sz 2-3 Rt - [id number]_gczJoqkj: 20-36-2166Vpixxb Adapt Legion 13mm Hinged Kn [place]om - [id number]_flrZearn: 69-10-1210Ekpuax Hk Gd Motion Isrt 13mm Sz 2-3 Rt - [id number]_yxaEmnpb: 03-37-7765Rwrxdqevha Small Stockwell Cement Disposable Poultry Barn Manager Distal - [id number]_mbwTeqmu: 18-39-4287Fbdtnc Hk Gm Tib Isrt 13mm Sz 2-3 Rt [id number]_impStart: 85-07-7556Aqmo Powerline Surecuff 5fr Polyurethane Catheter 1 Lumen Microintroducer - [id number]_tliGpben: 56-62-0843Vshuct Hk 13mm [place] And Sleeve [id number]_impStart: 03-85-8690Tfwiopudw-346099 Edora 8 Ml-P778[id number]_vwjOssqt: 10-79-1933Reydjctc Case [id number]_imp Start: 53-40-8014Fslmvns on above:Description: Converted from [facility]. Please see archived information for full log information.Stent 7fr 135cm Vbx Ba Ppm Expandable Cath Hep Vbhn Eprsth 8 Rpl [id number] - [id number] - [id number] 638336_impStart: 67-75-0373Rlfof Stnt 192mm 32mm 22fr Valiant [place] Sinusoidal Str - [id number] - [id number]_mtoEnoeb: 78-02-0850Vezkl Stnt 192mm 22fr Valiant [place] Cls 30mm - [id number] - [id number]_kfkBzilo: 34-60-9734Bldaznpz Cv Watchman Flx Pro Sz 27 Mm Sys Dia12 Fr Frme Nit Polyester Julita - [id number]_xqbSzyhy: 16-09-0348Xtbpatli Cv Watchman Flx Pro - [id number]_ilaRmcwx: 04-26-2025 Goals DatePatient GoalDesired Activity/StatePersonal health goalComment on above: Evaluation of progress towards goal: Patient plans for a safe discharge home with resumption of [facility] home care.Personal health goal Functional Status XjukOpgqbkvkwjZsksviWtgujlzd41-56-8333Fbxxjqq Health Questionnaire 2 item (PHQ- 2) [Reported][facility] CenterRljetmiwgn27-55-6286Vbtgiqhmak StatusN/AExec[facility]rology of [facility]06-19-2023Functional StatusN/AExec[facility]04-17-2023Functional StatusN/A [facility]08-29-2022Functional StatusN/AExec[facility]06-14-2022 Functional StatusN/AExec[facility] of [facility] Clinical Notes 03-05-2020 to 06-12-2025 Note Date & OgcoPvxrFgkccnbf45-84-1174 Evaluation note* Diagnosis Anemia due to stage 3 chronic kidney disease, 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) documented in this encounter [facility]10-[facility]-2025 Hospital Discharge instructions* Discharge Instructions* Shreya Martinez APRN - CNP - 06/05/2025 6:54 PM EDT Resume your home medications. Follow-up with your family doctor as well as Dr. Moore. * Attachments The following attachments cannot be sent through Care Everywhere. * Contusion (Guinean) documented in this encounterLewisgale Hospital [facility]09-30-2025 History of Present illness Narrative* Sheri Arshad - 05/16/2025 11:00 AM EDT Very brief encounter as they are both eating snacks. Attended to their needs at this time. See Flowsheet. Continue to visit and to support. Sister Sheri Arshad, OSF/T BCC documented in this encounterLewisgale Hospital [facility]09-24-2025 Evaluation note* Diagnosis Onset Date Resolution Status Admit Date Dysphagia acuteSeptember 2024 1:25pmEsophageal strictureacuteSeptember 2024 1:25pmAnemia due to stage 3b chronic kidney diseaseacuteOctober 2024 1:20pm Chronic diastolic CHF (congestive heart failure)acuteOctober 2024 1:20pm COPD (chronic obstructive pulmonary disease)acuteOctober 2024 1:20pm Coronary artery diseaseacuteOctober 2024 1:20pmMDD (major depressive disorder), recurrent episodeacuteOctober 2024 1:20pmOrthostatic hypotension acuteOctsaint [facility] 20[facility] 1:20pm [facility] Work Phone: 1(769) 566-132809-23-2025 Evaluation note* Diagnosis Anemia due to stage 3 chronic kidney disease, 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)- Primary documented in this encounter [facility]09-23-2025 Reason for visit Narrative* Treatment Plan and Therapy Plan (Routine) - AuthorizedSpecialtyDiagnoses / ProceduresReferred By ContactReferred To Contact Diagnoses Anemia due to stage 3 chronic kidney disease, 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) Procedures AR INJ RETACRIT NON-ESRD USE Rhoda Quezada MD [address] [place] [address] Phone: tel: fax: Rhoda Quezada MD [address] [place] [address] Phone: tel: fax: Referral IDStatusReasonStart DateExpiration DateVisits RequestedVisits [id number]/23/202512/ [facility]09-17-2025 History of Present illness Narrative* Timothy Penn DO - 05/03/2025 8:45 AM EDT Images [...] at this time. Allergies: Allergies Allergen Reactions Beaver Itching, Other, Unknown and Rash welts Other reaction(s): Welts Other reaction(s): Welts welts Droxidopa Shortness of breath Gold-Containing Drug Products GI intolerance, Itching, Other, Rash and Unknown itching Other reaction(s): Intolerance itching Other reaction(s): Welts itching Beaver Nickel welts Other reaction(s): Welts Other reaction(s): [...] Runny nose Other Gold GI intolerance itching Beaver Nickel welts Latex Rash Patient states allergic [...] or wheezing, Disp: 18 g, Rfl: 5 Lfrwahurayk-Tzwqhssdg-Mpndmv (Trelegy Ellipta) 100-62.5-25 MCG/ACT aerosol powder , [...] valve cusp with mild calcified cusp and wrvt-fh-ebosdpmf regurgitation, wbmw-gc-fjkzhnyi tricuspid valve regurgitation, no comment on an RVSP Assessment/Plan: Diagnoses and all orders for this visit: Chronic obstructive pulmonary disease, unspecified COPD type (HCC) - albuterol HFA 90 mcg/act inhaler; Inhale 2 puffs every 4 (four) hours if needed for shortness of breath or wheezing COPD, mild (HCC) - Rbceerwjoid-Feoprdzys-Qrpwvn (Trelegy Ellipta) 100-62.5-25 MCG/ACT aerosol powder ; [...] however she states they do go to [place] for the winter. They do leave [facility] and will return at the beginning of November. She will follow here in November when she returns from [place]. The patient and her understand the plan and are agreeable. Follow up in about 7 months (around 12/01/2025) for COPD. Timothy Penn DO documented in this encounterWestern Missouri Medical CenterNmcrgtjtgo37-69-4307 History of Present illness Narrative* Chantelle Cortez RN - 04/26/2025 4:04 PM EDT All discharge instructions reviewed, questions answered. Pulses obtained & documented. Pt ambulatory. Site clean dry and intact. No bleeding, hematoma, or bruising noted. Patient to be dischargedwith all belongings by Ira Cabral. IV removed. * Shante Sheridan RN - 04/26/2025 9:43 AM EDT Received post procedure to [facility] to room 5. Assessment obtained. Restrictions reviewed [...] 2 of 2. Bilateral Groin clipped with advertising copy writer and La RN present. RN at bedside with patient. History and physical to be updated. VS & Pulses obtained and documented. Bedside EKG complete. IV placed and labs collected. Anesthesia at bedside. Will continue to monitor. Patient hypertensive. Dr. Herrera aware and will treat in OR. documented in this encounterBon [facility] Hospital Discharge instructions* Discharge Instructions* Chantelle Cortez RN - 04/26/2025 10:28 AM EDT DISCHARGE INSTRUCTIONS: [facility] : Ok to remove band-aid in 24 hours then then shower. Do not apply further band aids. Keep clean, dry and open to air. Avoid power, lotion, hand track worker on or around site to prevent infection. [...] BLOOD THINNERS UNLESS TOLD TO BY YOUR OCEANOGRAPHER GEOLOGICAL Do not take metformin (Glucophage) or glyburide [...] Oral Tablet 81 mg (ASPIRIN - ORAL) (Guinean) documented in this encounterBon [facility]08-22-2025 Telephone encounter Note* Telephone Encounter - Douglas Will MD - 04/07/2025 12:16 PM EDT Noted. [facility] CenterDycuwqhhzw77-93-4851 Miscellaneous Notes* Telephone Encounter - Douglas Will [...] up is necessary. clm documented in this encounterWestern Missouri Medical CenterBhutlikxbx38-14-4316 Telephone encounter Note* Telephone Encounter - TOMMY BRAVO - 04/07/2025 10:23 AM EDT Patient had a fall out of bed, home health called states it is cleaned and dressed, no longer bleeding. Home Julio will keep an eye on it and call back if she thinks further follow up is necessary. clm [facility] CenterBzvdupdrjf45-40-2861 History of Present illness Narrative* Douglas Will [...] ejection fraction (HFpEF) (HCC) Follow with cardiology * Douglas Will MD - 04/06/2025 12:33 PM EDTAssociated Problem(s): CAD in [place] artery Continued SOB and heart cath. Follow [...] List Items Addressed This Visit CAD in [place] artery - Primary Continued SOB and heart [...] intake Follow with hematology documented in this encounterWestern Missouri Medical CenterCojgnqbvkj70-52-7809 History of Present illness Narrative* Rashmi Liu RN - 03/24/2025 2:04 PM EDT Discharge paperwork explained to patient at bedside. Reviewed orders for labs to be completed next week and orders for home health with [facility]. Explained new medications ordered and where to pick them up. Explained follow up appointment with cardiology (she states she will not go to [place] for thecardiology and will see Dr Moore in [place]) and to also follow up with PCP. [...] LAD stent. In 11/01, she was in [facility] for the past four months and had seen her predictive maintenance technician in [facility] due to chest pain and shortness of [...] in and out of the hospital [facility] and [facility] due to having severe headaches and passing out starting on 04/25/2018. She says prior to this she had gotten SI joint injections and wondered if this is why she was having symptoms of fluctuation in blood pressure, lightheadedness, dizziness, as well as severe headaches. She seen Dr. Robledo at her stay and he had told [...] 2 days and then transferred to the [facility] for a total right knee replacement on 06/18/18. Ms. Lambert reports being admitted while in [place] for recurrent right knee infections. She was in the emergency room in [place] on 05/25/2019 for hypertension with a systolic [...] an echocardiogram and heart cath done in [place] in October 2019. She also says she had a PET Stress test done in [place] in October 2019. She unfortunately was admitted on 04/03/2020-04/06/2020 for Sotalol loading and again came to emergency room on 04/17/2020 for shortness of breath and tachycardia. She follows with Dr. Cesar Andrade in [place] and reports just this past winter, she had and EKG and an echocardiogram down there. Stent placement in [place] by Dr Avila at [facility] on 11/12/2021. Pacemaker checked in office by [...] (PAF), here for a 1-year pacer check ([employer]). She reports feeling generally unwell, with her [...] She has an upcoming appointment with a physical chemistry teacher on 03/08/2025. She has been prescribed Trelegy, [...] bruising. She has an appointment with a fryline attendant on 02/16/2025. She consulted a doctor in [place] regarding the possibility of a Watchman device, [...] the Cx, 60-70% proximal RCA stenosis. Cancer ([facility]) 1989,1991 breast cancer bilateral mastectomy Chronic cough 06/21/2012 COPD (chronic obstructive pulmonary disease) ([facility]) H/O cardiac catheterization 04/27/2015 LMCA: Normal 0% [...] CPAP 11/19/2015 patient off several years, per physical chemistry teacher Pacemaker 03/04/2017 Dr. Malorie Talley Pulmonary hypertension (HCC) patient states mild S/P cardiac cath 02/13/2012 EF >55%. Patent 1st diagonal stent. 50-60% proximal RCA stenosis. S/P cardiac cath 03/20/2017 PCI Ulcer in stomach Unspecified sleep apnea uses C Pap mx CURRENT ALLERGIES: Latex, Droxidopa, Acetaminophen-codeine, Tylenol with codeine [acetaminophen-codeine], Environmental/seasonal, Gold, Nickel, Beaver, and Gold-containing drug products REVIEW OF SYSTEMS: [...] CORONARY ANGIOPLASTY WITH STENT PLACEMENT LAD ; [facility], Dr Young DIAGNOSTIC CARDIAC BALANCE WHEEL HAND FILER PROCEDURE 2009 LMCA-normal, LAD-patent stent, CX-normal, RCA-30%,EF55-60% [...] encounter (Hospital Encounter) Medication Sig Dispense Refill ufqravcvoqt-qfmnqvyll-ncxrmn (TRELEGY ELLIPTA) 100-62.5-25 MCG/ACT AEPB inhaler Inhale [...] Problem List Diagnosis Date Noted Unstable angina ([facility]) 04/03/2022 Tachycardia History of DVT (deep vein thrombosis) Encounter for monitoring sotalol therapy PAF (paroxysmal atrial fibrillation) ([facility]) 04/02/2020 Essential hypertension 12/19/2019 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/2019 Shortness of breath 03/23/2025 KARLEE (acute kidney injury) 03/23/2025 Recurrent falls 03/21/2025 Secondary hypercoagulable state 03/21/2025 Acute kidney injury superimposed on CKD 03/21/2025 Normocytic anemia 02/16/2025 Severe malnutrition 06/15/2018 Cellulitis of leg, right 06/14/2018 Stage 2 moderate COPD by GOLD classification ([facility]) Chronic kidney disease 03/10/2017 CARISA on CPAP 11/19/2015 MTHFR mutation 03/22/2015 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 02/22/2015 S/P coronary artery stent placement on 03/20/17 12/18/2014 Chronic diastolic HF (heart failure), NYHA class 3 ([facility]) 12/18/2014 CAD (coronary artery disease) 03/03/2014 History of pulmonary embolus (PE) Bronchial asthma 06/21/2012 Pulmonary hypertension ([facility]) 02/06/2012 Dyspnea on exertion 02/06/2012 Atrial fibrillation ([facility]) 04/03/2020 PLAN: Assessment & Plan 1. Shortness [...] watchman after discussing with Dr Douglas from [facility]. Essential Hypertension: Uncontrolled: I did discuss [...] that was prescribed to her by her predictive maintenance technician in [place]. Therefore I asked her to [...] Aortic Dissection: Surgery completed on 11/23/2023 at [facility] Last hemoglobin on 12/23/2024 was 9.5 Continue [...] LAD on 11/12/[address] Avila in [place] Antiplatelet Agent: Continue clopidogrel (Plavix): Plavix 75 [...] Metoprolol succinate (Toprol XL) 100 mg daily. [id number] Score for Atrial Fibrillation Stroke Risk Risk Factors Component Value C CHF Yes 1 H HTN Yes 1 A2 Age >= 75 Yes, (84 y.o.) 2 D DM No 0 S2 Prior Stroke/TIA No 0 V Vascular Disease No 0 A Age 65-74 No, (84 y.o.) 0 Sc Sex female 1 [id number] Score 5 Score last updated 04/02/20 4:20 [...] I do not think is a feasible [place] health care facility option for her. Also cannot afford Eliquis. [...] further assistance. Sincerely, Toni Moore MD, MS, [facility] Curing Oven Attendant [address] [place], [place] [id number] , I believe that the risk of significant morbidity and mortality related to the patient's current medical conditions are: Intermediate. The documentation recorded by the scribe, accurately and completely reflects the services I personally performed and the decisions made by me. Toni Moore MD, MS, F.A.C.C. March 24, 2025 * Tamiko Yanez PTA - 03/24/2025 10:53 AM EDT [facility] Inpatient/Observation/Outpatient Rehabilitation Date: 03/24/2025 Patient Name: Leyla [...] does not require skilled services due to: Therapist/Oral And Maxillofacial Pathologist will attempt to see this patient, at our earliest opportunity. Tamiko Yanez PTA Date: 03/24/2025 Cosigned by Marla Villar, PT at 03/24/2025 11:01 AM EDT * Rashmi Liu RN - 03/24/2025 10:09 AM EDT Reported elevated BP to Analy LOPEZ, new order to start losartan. Pt had ambulated to bathroom and stated she is very SOB and dizzy. Is not feeling well. Director Marketing asked if she feels safe going home today and patient refuses to go anywhere for rehab. Director Marketing expresses concerns that she will fall at home and patient is adamant that she will go home today. Administered losartan to patient and explainedmedication and its use. Pt verbalized understanding. Will continue monitoring BP. * Rashmi Liu RN - 03/24/2025 8:29 AM EDT Notified Analy JESSICA of elevated BP, she would like pt to take midodrine this morning and continue monitoring BP. * Lori Canada RPH - 03/24/2025 8:16 AM EDT Images from the original note were not included. [facility] Department of Pharmacy Pharmacy Renal Adjustment Note [...] than 30 ml/min. Thank you, Lori Canada [facility],03/24/2025,8:16 AM * Rashmi Liu RN - 03/24/2025 [...] alarm on. Plan of care ongoing. * Bethany Bai RN - 03/23/2025 5:[address] Alanis on video visit with the patient at this time. * Melania Mcclendon RN - 03/23/2025 4:15 PM EDT Director Marketing sitting at window and observed patient pushing a prescription bottle of medications into purse. Director Marketing went to bedside and addressed the medications with the patient. Patient described that itwas a medication to help with her restless legs. Director Marketing educated patient that she is not to take any medications while she is in the hospital without the doctors approving the medications and the nursing staff administered the medications. The patient denied that she was going to take the medication. Patient did not understand why she could not take the medication because it had been prescribed to her. Director Marketing explained to the patient that medications can interact with each other, and the doctors here may choose to prescribe different medications. All medications were reviewed at this time with the patient. Patient was told by advertising copy writer that she had one of two options; she could send the medication home with her or that she could give the medications to staff and we would lock them up. Patient stated she would send them home with her . Director Marketing explained to the patient the impor tance of under no circumstance taking medications while she is here that are not ordered for her. Patient verbalizes understanding and agrees to send medication home with . * Nyasia Frazier, BRAND MGR - 03/23/2025 3:23 PM EDT Physical Therapy Facility/Department: [facility] Daily Treatment Note NAME: Leyla Lambert : 1940 Date of Service: 03/23/2025 Discharge Recommendations: Continue to assess pending progress, Subacute/Senior Care Facility, Home with Home health PT, Home [...] 03/23/2025 10:26 AM EDT Physical Therapy Facility/Department: [facility] Daily Treatment Note NAME: Leyla Lambert : 1940 Date of Service: 03/23/2025 Discharge Recommendations: Continue to assess pending progress, Subacute/Senior Care Facility, Home with Home health PT, Home [...] 28 Nyasia Frazier PTA Cosigned by Marla Villar PT at 03/23/2025 10:39 AM EDT * Delia Taylor SLP - 03/23/2025 9:37 AM EDT [facility] INPATIENT SPEECH THERAPY [facility] Dysphagia Treatment Date: 03/23/2025 Patient Name: Leyla Lambert CSN: [id number] : 1940 (84 y.o.) Gender: female Referring Physician: Larisa Reardon MD Diagnosis: recurrent falls Precautions: fall risk Current Diet: Regular Solids; Ground meats, Thin Liquids (may choose softer foods per preference) Swallowing Strategies: Standard [place] Swallow Precautions Date of Last MBS/FEES: Not Applicable Pain: No pain reported. Patient did complain of upset stomach, which SHANK MAKER reported to RN. Subjective: Patient was seen for morning snack while she was seated upright in her chair. Patient was alert and cooperative throughout dysphagia treatment. Patient reported she felt sick to her stomach and light headed after PT therapy. SHANK MAKER informed RN on patient's status. RN reports [...] Long-Term Goals: Long-Term Goal Timeframe: 14 Days [facility] GOAL #1: Goal 1: Patient will tolerate [...] follow up therapy recommended post discharge TIME SHANK MAKER Individual Minutes Time In: 0910 Time Out: 919 Minutes: 10 Electronically Signed by Delia Akers M.A. [facility]-SHANK MAKER * Melania Mcclendon RN - 03/23/2025 9:08 AM EDT Cardiology consult called at this time. * Melania Mcclendon RN - 03/23/2025 9:01 AM EDT Patient awake and resting in chair upon advertising copy writer entering the room. Patient is alert and [...] time and denies any needs. Patient told advertising copy writer when she got up to bathroom this last time, she was feeling dizzy. Patient states no longer dizzy while laying in bed. Call light within patients reach and bed alarm on, at bedside. Plan of care ongoing. * Sean Funez - 03/22/2025 4:50 PM EDT Spiritual Services Interventions [id number]/[id number] 03/22/2025 Sean Funez Leyla Lambert 84 y.o. year old female Encounter Summary Encounter Overview/Reason: (P) Spiritual/Emotional Needs Service Provided For: (P) Patient Referral/Consult From: (P) Rounding Last Encounter : (P) 03/22/25 Complexity of Encounter: (P) Moderate Begin Time: (P) 1430 End Time : (P) 1445 Total Time Calculated: (P) 15 min Spiritual/Emotional needs Type: (P) Spiritual Support Assessment/Intervention/Outcome Assessment: (P) Calm Intervention: (P) Discussed belief system/christianity practices/yu, Discussed illness injury and it s impact Outcome: (P) Encouraged, Engaged in conversation, Comfort * Nyasia Frazier PTA - 03/22/2025 3:01 PM EDT Physical Therapy Facility/Department: [facility] Daily Treatment Note NAME: Leyla Lambert : 1940 Date of Service: 03/22/2025 Discharge Recommendations: Continue to assess pending progress, Subacute/Senior Care Facility, Home with Home health PT, Home [...] 26 Nyasia Frazier PTA Cosigned by Marla Joaquin, PT at 03/22/2025 3:08 PM EDT * [...] Reardon From: Speech Therapy Sender:_Marbella Cabello M.S., CCC-SHANK MAKER ([facility]) Leyla Lambert current unit [x][facility] [phone] []ICU [phone] Your bedside evaluation order for Leyla Lambert has been completed. Based on the results speech therapy recommends: Regular Solids, Ground meats, Thin Liquids If you agree please enter the new diet order in [facility] or telephone the nursing unit. Diet will not change without your order. Thank you, Electronically signed by: Marbella Cabello M.S., CCC-SHANK MAKER * Makayla Smallwood, OMAR - 03/22/2025 8:06 AM EDT Oncology consult called at this time. Will pass along to Dr. Quezada tomorrow morning when in office03/23/2025. * Makayla Smallwood RN - 03/22/2025 8:02 AM EDT Pulmonology consult sent to Dr. Alanis at this time via Just [employer]. * Henna Bravo [facility] - 03/22/2025 8:01 AM EDT Images from the original note were not included. [facility] Department of Pharmacy Pharmacy Renal Adjustment Note [...] 03/22/2025 7:59 AM EDT Occupational Therapy Facility/Department: [facility] Occupational Therapy Initial Assessment Name: Leyla Lambert : 1940 Date of Service: 03/22/2025 Discharge Recommendations: Continue to assess pending progress, 24 hour supervision or assist, Subacute/Senior Care Facility Patient Diagnosis(es): The primary encounter diagnosis [...] Chronic cough, COPD (chronic obstructive pulmonary disease) ([facility]), H/Ocardiac catheterization, H/O cardiac catheterization, H/O cardiovascular [...] surgery; Cholecystectomy; Hysterectomy; Breast surgery; Diagnostic Cardiac Loadmaster Procedure (2009); joint replacement (Right, 01/31/2013); joint [...] Assessment: 84 year old female admitted to [facility] due to elevated troponin. Patient presents with [...] Level of Assist for Transfers: Independent Active Account Information Clerk: No Occupation: Retired Objective Vision Vision: Impaired [...] Time Individual Concurrent Group Co-treatment Time In 734 Time Out 0752 Minutes 17 Kristina Amador OT Cosigned by Nyasia Byrd APRN - CNP at 03/22/2025 9:46 PM EDT * Marla Joaquin, PT - 03/22/2025 7:55 AM EDT Physical Therapy Facility/Department: [facility] Physical Therapy Initial Assessment Name: Leyla Lambert : 1940 Date of Service: 03/22/2025 Discharge Recommendations: Continue to assess pending progress, Subacute/Senior Care Facility, Home with Home health PT, Home [...] artery disease), CAD (coronary artery disease), Cancer ([facility]), Chronic cough, COPD (chronic obstructive pulmonary disease) ([facility]), H/Ocardiac catheterization, H/O cardiac catheterization, H/O cardiovascular stress test, H/O echocardiogram, H/O echocardiogram, Hiatal hernia, History of blood clots, History of DVT (deep vein thrombosis), History of pulmonary embolus (PE), Hx of blood clots, Hyperlipidemia, Hypertension, Hyperthyroidism, CARISA on CPAP, Pacemaker, Pulmonary hypertension ([facility]), S/P cardiac cath, S/P cardiac cath, Ulcer, and Unspecified sleep apnea. Past Surgical History: has a past surgical history that includes Colon surgery; Cholecystectomy; Hysterectomy; Breast surgery; Diagnostic Cardiac Loadmaster Procedure (2009); joint replacement (Right, 01/31/2013); joint [...] Level of Assist for Transfers: Independent Active Account Information Clerk: No Occupation: Retired Vision/Hearing Vision Vision: Impaired [...] Time Individual Concurrent Group Co-treatment Time In 734 Time Out 0750 Minutes 15 Timed Code [...] Consult palliative care Consult dietitian for malnutrition SHANK MAKER evaluation for difficulty swallowing Orthostatic vital signs [...] Well developed, well nourished with no malnutrition Sql Engineer consult initiated I/O Daily weight Monitor Daily [...] Full Code Disposition: Discharge plan is pending [facility] Advanced Care Planning documentation: [x] I [...] the patient's medical record. [DOES NOT SATISFY [facility] PERFORMANCE] WEST Boyd CNP , WEST, MANAGER BEHAVIOR-C Hospitalist Medicine 03/22/2025, 7:47 AM Cosigned by Larisa Reardon MD at 03/22/2025 1:54 PM EDT Associated attestation - Larisa Reardon MD - 03/22/2025 1:54 PM EDT Attending Supervising Physician s Attestation Statement I have personally evaluated and examined the patient [id number] in conjunction with the nurse practitioner. I agree with management and disposition of the patient. Examined and Reviewed plan of care with MANAGER BEHAVIOR. Directions and discussion about care and plans. [...] Smallwood RN - 03/22/2025 7:45 AM EDT Director Marketing to bedside to complete morning assessment. Upon entry to room, pt laying in bed, respirations even and unlabored while on room air. Vitals obtained and assessment completed, see flow sheet fordetails. Pt denies needs from advertising copy writer at this time. Call light in reach. [...] & deltoids) Fluid Accumulation: No fluid accumulation Vocational Placement Specialist Strength: Not Performed Nutrition Assessment: Severe acute [...] Measures: Height: 160 cm (5' 3 ) [place] Body Weight (IBW): 115 lbs (52 kg) [...] Used for Energy Requirements: Current Energy (kcal/day): 7041-2668 (40-45) Weight Used for Protein Requirements: Current [...] to determine Roni Joaquin RD, CANDI Contact: [phone] * Aleksandr Ernst RN - 03/22/2025 5:05 AM EDT Director Marketing and Nyasia, Aid assisted patient to the bedside commode with front wheel walker at this time and patient tolerated fairly well. Director Marketing assisted patient back to bed, patient states no needs, call light in reach, bed alarm on. Patient urine sample sent down to lab at this time. * Aleksandr Ernst RN - 03/21/2025 9:30 PM EDT Patient resting in bed with eyes closed, respirations even and unlabored, bed alarm on, plan of care ongoing. * Tony Pelaez [facility] - 03/21/2025 6:53 PM EDT Pharmacy Note [...] adjusted to 20mg daily -Tony Pelaez PharmD, [facility] 03/21/2025 6:53 PM * Sujey Reeves RN - 03/21/2025 6:48 PM EDT Director Marketing reviewed all home medications with patient. Patient did say she took her coumadin today and she was to take 5mg everyday until Thursday per the coumadin clinic at this facility. Notified primarynanai Mccarthy RN. * Aleksandr Ernst RN - 03/21/2025 6:45 [...] 03/21/2025 5:38 PM EDT [facility] Report received from ED nurse at bedside. Vitals and assessment complete at this time. See flowsheets for details. Warm blankets given to the patient. Ice water given to the patient. Patient denies further needs. Call light is within reach. Care ongoing. documented in [facility]Bon [facility] Discharge instructions* Discharge Instructions* Ashish Bhandari MD - 03/20/2025 2:44 PM EDT Please continue with your inhalers/bronchodilator inhalers as previously advised and prescribed Please contact your physician and the Coumadin clinic concerning any adjustments in your INR/Coumadin tablets Please have your laboratory studies including your BNP reevaluated and rechecked by your healthcareprovider * Attachments The following attachments cannot be sent through Care Everywhere. * Anemia (Guinean) * COPD: Asthma (Guinean) * Skin Tears (Guinean) documented in this encounterBon [facility]2025 History of Present illness Narrative* Timothy Penn, - 03/08/2025 10:30 AM EDT Images from [...] dilation. This is to be done at [facility]. The patient was quite dyspneic with minimal exertion at the office visit today. Shedenied any other complaints at this time. She does continue to follow with Hematology given a history of anemia, Cardiothoracic surgery given a history of aortic dissection in the past, and Cardiology. Allergies Allergen Reactions Beaver Itching, Other, Unknown and Rash welts Other reaction(s): Welts Other reaction(s): Welts welts Droxidopa Shortness of breath Gold-Containing Drug Products GI intolerance, Itching, Other, Rash and Unknown itching Other reaction(s): Intolerance itching Other reaction(s): Welts itching Beaver Nickel welts Other reaction(s): Welts Other reaction(s): [...] COPD. Timothy Penn DO documented in this encounterWestern Missouri Medical [id number] History of Present illness Narrative* HEMAL De Dios - 02/21/2025 1:45 PM EDT Images from the original note were not included. Orthopedic Office note: NAME: Leyla Lambert : 1940 (NEW PT) RT KNEE PAIN - HX OF FALLS. XRAY TODAY EPIC 02/21/25 HX OF 10 SURGERIES TO RT KNEE. HAS HAD 2 RT TKA'S AND HAD INFECTIONS. FIRST SURGERY WAS [facility], THE REST WERE AT [facility]. PRESENTS WITH WALKER. HAS HAD MULTIPLE [...] those taken by her specialist at the [facility] who performed her revisionsurgeries. Diagnostic plan: Compare today's x-rays with those taken by her specialist at the [facility]. Treatment plan: Patient education on the importance [...] requiring urgent evaluation. Visit was preformed using [employer]-mineralogy professor speech recognition. documented in this encounterWestern Missouri Medical [id number] History of Present illness Narrative* Douglas Will MD - 02/20/2025 2:44 PM EDTAssociated [...] 02/20/2025 2:42 PM EDTAssociated Problem(s): CAD in [place] artery Continued SOB and stress test ordered. [...] List Items Addressed This Visit CAD in [place] artery Continued SOB and stress test ordered. [...] supplement. Follow with hematology. documented in this encounterWestern Missouri Medical [id number] History of Present illness Narrative* Berenice Rudolph, WEST-TOWERMAN - 02/09/2025 2:45 PM EDT GENERAL SURGERY [...] we can proceed in February. Seeing her predictive maintenance technician on February 24. That was when I [...] Insecurity: No Food Insecurity (01/15/2024) [facility] Hunger Screening Within the past 12 [...] No Stress Concern Present (05/21/2023) [facility] [employer] [facility] [place] of Occupational Health - Occupational Stress Questionnaire Feeling of Stress : Not at all Social Connections: Unknown (05/21/2023) [facility] [employer] [facility] Social Connection and Isolation Panel [NHANES] Frequency of Communication with Friends and Family: More than three times a week Frequency of Social Gatherings with Friends and Family: Not on file Attends Sabianist Services: Not on file Active Member of Clubs or Organizations: Not on file Attends Club or Organization Meetings: Not on file Marital Status: Not on file Intimate Partner Violence: Unknown (10/08/2023) Received from [facility] [place] Safety & Environment Fear of [...] Last Year: No ALLERGIES: Allergies Allergen Reactions Beaver Itching, Other, Unknown and Rash Other reaction(s): [...] and Runny nose Other Other Annotation - [id number]: Nickel, Beaver, Gold Compounding Gold Au 198 Unknown, Itching, Other and Rash Other reaction(s): Welts itching Gold Keratinate Unknown, Itching, Other and Rash itching Beaver Nickel welts Other reaction(s): Welts Other reaction(s): [...] we can proceed in February. Seeing her predictive maintenance technician on February 24. That was when I [...] slowly - EGD with dilation and Botox BerenicePANFILO Garcia documented in this encounterShelby [facility] Work Phone: [phone]) 353-225705-30-2025 History of Present illness Narrative* HEMAL Rios [...] HEMAL Rios 01/13/25 1147 documented in this encounterUniversity Of Vermont Medical CenterSecuresight Technologies05-30-2025 Miscellaneous Notes* Telephone Encounter - PANFILO Major [...] her appointments monthly. She is also in [place] half of the year. if she abruptly [...] to her being out of town in [place] and only needing to receive the dose every 6 months. documented in this encounterPremier Health Upper Valley Medical CenterQueue-it [facility] [id number] Telephone encounter Note* Telephone Encounter - PANFILO [...] her appointments monthly. She is also in [place] half of the year. if she abruptly [...] to her being out of town in [place] and only needing to receive the dose every 6 months. [facility] Work Phone: [phone] History of Present illness Narrative* Douglas Will MD - 01/12/2025 2:45 PM EDTAssociated Problem(s): CKD stage 3a, GFR 45-59 ml/min ([facility]) Repeat labs * Douglas Will MD - [...] 01/12/2025 2:42 PM EDTAssociated Problem(s): CAD in [place] artery (CMS/HCC) No chest pain and follow [...] TSH T4, free T3, free CAD in [place] artery (CMS/HCC) No chest pain and follow up with cardiology. Chronic heart failure with preserved ejection fraction (HFpEF) (CMS/HCC) Follow with cardiology COPD (chronic obstructive pulmonary disease) ([facility]) Continued SOB but normal breath sounds. Follow [...] differential Iron and TIBC documented in this encounterWestern Missouri Medical [id number] History of Present illness Narrative* Douglas Will [...] Admitted and echo and chest x-ray negative. [place] not related to COPD. Labs showed low [...] appetite. Start nutritional supplement. documented in this encounterWestern Missouri Medical [id number] History of Present illness Narrative* Douglas Will [...] to ER for admission. documented in this encounterWestern Missouri Medical [id number] Miscellaneous Notes* Telephone Encounter - DELMIS Correa - 12/13/2024 10:37 AM EDT Patient called office and stated that she needs to be seen for shortness of breath, patient sounds very short of breath on phone, advertising copy writer recommended that she go to ED to be evaluated. Patient stated that she was just there yesterday for 8 hours with no satisfaction. Patient stated that she does notwant to go back to ED. Patient is demanding an appointment with KW, advertising copy writer informed patient that wedon't have a pulmonary physician in office today and that we do not do same day appointments. Director Marketing informed her that she should contact her PCP as they may have openings before our office, patient stated that she does have an appointment today at 2:15pm. Director Marketing recommended ED evaluation again andpatient stated that she will not be going to the ED. * Telephone Encounter - Emma Zabala MD - 12/13/2024 10:37 AM EDT Agree. I think she needs to have a cardiac evaluation (symptomatic hypotension) and it does not appear this is pulmonary. * Telephone Encounter - DELMIS Correa - 12/13/2024 10:37 AM EDT Director Marketing called patient's PCP office and spoke with Dr. Will's remote medical coder, Tommy, advertising copy writer informed Tommy of patient's message from earlier and KW's recommendations. Tommy stated that patient is coming in for an appointment with Dr. Will today at 2:15pm. Tommy stated that she would notify Dr. Will of this information. [facility] Telephone encounter Note* Telephone Encounter - DELMIS Correa - 12/13/2024 10:37 AM EDT Patient called office and stated that she needs to be seen for shortness of breath, patient sounds very short of breath on phone, advertising copy writer recommended that she go to ED to be evaluated. Patient stated that she was just there yesterday for 8 hours with no satisfaction. Patient stated that she does notwant to go back to ED. Patient is demanding an appointment with KW, advertising copy writer informed patient that wedon't have a pulmonary physician in office today and that we do not do same day appointments. Director Marketing informed her that she should contact her PCP as they may have openings before our office, patient stated that she does have an appointment today at 2:15pm. Director Marketing recommended ED evaluation again andpatient stated that she will not be going to the ED. [facility]04-29-[facility] Telephone encounter Note* Telephone Encounter - Emma Zabala MD - 12/13/2024 10:37 AM EDT Agree. I think she needs to have a cardiac evaluation (symptomatic hypotension) and it does not appear this is pulmonary. [facility]04-29-2025 Telephone encounter Note* Telephone Encounter - DELMIS Correa - 12/13/2024 10:37 AM EDT Director Marketing called patient's PCP office and spoke with Dr. Will's remote medical coder, Tommy, advertising copy writer informed Tommy of patient's message from earlier and KW's recommendations. Tommy stated that patient is coming in for an appointment with Dr. Will today at 2:15pm. Tommy stated that she would notify Dr. Will of this information. [facility]04-28-2025 NoteCT CERVICAL SPINE WO CONT Procedure: CT [...] by Ted Alexander MD on 12/12/2024 1:43 [facility] 12-09-2024 Miscellaneous Notes* Telephone Encounter - May [...] Gale CMA - 12/09/2024 9:01 AM EDT Director Marketing called Dr Will's office and spoke with [...] fax results to them. documented in this encounterPremier Health [facility] CenterQueue-it [facility] [id number] Telephone encounter Note* Telephone Encounter - May [...] 3:20 PM EDT To: Stacey Bazan DO [facility] Skicka [id number] Telephone encounter Note* Telephone Encounter - May Gale CMA - 12/09/2024 9:01 AM EDT Director Marketing called Dr Will's office and spoke with Tommy. Relayed attached information from SE note from labs drawn yesterday and to see if they could follow up with her. Tommy said she would pass the information on to Dr Will when he got in. Tommy also said she could see the lab results in epic, so no need to fax results to them. [facility]04-23-2025 History of Present illness Narrative* Douglas Will MD - 12/07/2024 2:14 PM [...] Relevant Orders Basic metabolic panel CAD in [place] artery (CMS/HCC) Relevant Medications atorvastatin (Lipitor) 40 [...] Advised not to smoke. documented in this encounterWestern Missouri Medical [id number] History of Present illness Narrative* Cindy Bernal [...] After use, clean tip and replace cap. Qcbzyuhudww-Psjxsrfbn-Gzhkty (Trelegy Ellipta) 100-62.5-25 MCG/ACT aerosol powder 1 [...] 30 day supply ALLERGIES: Allergies Allergen Reactions Beaver Itching, Other, Unknown and Rash welts Other reaction(s): Welts Other reaction(s): Welts welts Droxidopa Shortness of breath Gold-Containing Drug Products GI intolerance, Itching, Other, Rash and Unknown itching Other reaction(s): Intolerance itching Other reaction(s): Welts itching Beaver Nickel welts Other reaction(s): Welts Other reaction(s): [...] removal in 10 days documented in this [facility]04-16-2025 Instructions* Patient Instructions* Cindy Bernal NP - 11/30/2024 11:30 AM EDT Dressing changes every day Finish antibiotics as well Monitor for s/s infection documented in this [facility]03-12-2025 Miscellaneous Notes* Telephone Encounter - Luz Elena Zabala - 10/26/2024 12:39 PM EDT Patient is calling to ask for a refill on her Eliquis 5mg to be sent to the [facility] in [place] because they are still in [place]. [address] [facility], [address] [facility] phone number [phone] She can be reached at [phone] Thank you. * Telephone Encounter - Imelda Mcintyre CMA - 10/26/2024 12:39 PM EDT Changed Pharmacy to [facility] in [facility] , documented in this [facility]03-12-2025 Telephone encounter Note* Telephone Encounter - Luz Elena Zabala - 10/26/2024 12:39 PM EDT Patient is calling to ask for a refill on her Eliquis 5mg to be sent to the [facility] in [place] because they are still in [place]. [address] [facility]. [facility], [address] [place] phone number [phone] She can be reached at [phone] Thank you. [facility]03-12-2025 Telephone encounter Note* Telephone Encounter - Imelda Mcintyre CMA - 10/26/2024 12:39 PM EDT Changed Pharmacy to [facility] in [facility] , [facility]02-03-2025 Miscellaneous Notes* Telephone Encounter - Luz Elena Zabala - 09/19/2024 10:25 AM EST Patient is calling because at her last appointment with he took her off of Amlodipine but she was recently in Hospital in [facility] and they put her back on it. She is asking if she should continue to take it or not because told her to discontinue taking it. She can be reached at [phone] Thank you. * Telephone Encounter - Le [...] she should. She can be reached at [phone] Thank you. * Telephone Encounter - Marbella [...] discuss with her provider. documented in this encounterK[facility]02-03-2025 Telephone encounter Note* Telephone Encounter - Luz Elena Zabala - 09/19/2024 10:25 AM EST Patient is calling because at her last appointment with he took her off of Amlodipine but she was recently in Hospital in [facility] and they put her back on it. She is asking if she should continue to take it or not because told her to discontinue taking it. She can be reached at [phone] Thank you. [facility] Outcome Referrals [id number] Telephone encounter Note* Telephone Encounter - Le Read LPN - 09/19/2024 10:25 AM EST Forwarding message to and his M/A I do not see anywhere in the chart that recommended patient to stop taking amlodipine [facility] Outcome Referrals [id number] Telephone encounter Note* Telephone Encounter - Parul [...] she should. She can be reached at [phone] Thank you. [facility] Sk[place] [id number] Telephone encounter Note* Telephone Encounter - Marbella [...] and will further discuss with her provider. [facility] Outcome Referrals [id number] Miscellaneous Notes* Telephone Encounter - May Gale CMA - 08/25/2024 4:36 PM EST Director Marketing called to offer patient an appointment on 08/29/23. Patient stated she was in [place] and would call to schedule when back in town. documented in this encounterK[facility]01-09-2025 Telephone encounter Note* Telephone Encounter - May Gale CMA - 08/25/2024 4:36 PM EST Director Marketing called to offer patient an appointment on 08/29/23. Patient stated she was in [place] and would call to schedule when back in town. Bevii [id number] Miscellaneous Notes* Telephone Encounter - Lucie Kirkpatrick - 08/19/2024 1:42 PM EST Patient called [...] she is currently staying in [place] in [place] and would like to know what doctor was recommend she see there for her injections confirmed [phone] as a good callback number to discuss * Telephone Encounter - PANFILO Major - 08/19/2024 1:42 PM EST I just spoke with this patient. She has been taking the 500 in a.m. and 1,000 in afternoon and evening of calcium. She forgot to get her labs drawn before she left for [place]. She has a standing order in for calcium draws. She needs her labs rechecked but is in [place], [place]. She states shewould like to get her labs drawn at [facility] in [place], [place]. [address], [place] [address]. Phone number is . I assume someone [...] provided a fax number. Registration staff at [facility] in [facility] gave fax number [phone]. Faxed calcium order and demographics sheet. documented in this encounterTrumbull Regional Medical Center Outcome Referrals [id number] Telephone encounter Note* Telephone Encounter - Lucie [...] she is currently staying in [place] in [place] and would like to know what doctor was recommend she see there for her injections confirmed [phone] as a good callback number to discuss [facility] Sk[place]a [id number] Telephone encounter Note* Telephone Encounter - Capri Matthews, TRANSFORMER SHOP SUPERVISOR-TOWERMAN - 08/19/2024 1:42 PM EST I just spoke with this patient. She has been taking the 500 in a.m. and 1,000 in afternoon and evening of calcium. She forgot to get her labs drawn before she left for [place]. She has a standing order in for calcium draws. She needs her labs rechecked but is in [place], [place]. She states shewould like to get her labs drawn at [facility] in [place], [place]. [id number], [place] [address]. Phone number is . I assume someone will have to fax my order down there and then if you could call the patient and let her know the plan. Thank you! [facility] Work Phone: 1(242) 605-928701-03-2025 Telephone encounter Note* Telephone Encounter - Sean Kilgore - 08/19/2024 1:42 PM EST Patient called back from [place] lab stating the order was not faxed. We were not provided a fax number. Registration staff at [facility] in [facility] gave fax number [phone]. Faxed calcium order and demographics sheet. [facility]10-18-2024 History of Present illness Narrative* HEMAL Guerra [...] for any new/changing lesions documented in this encounterNOMS [id number] History of Present illness Narrative* Nolan Julio [...] we can proceed in February. Seeing her predictive maintenance technician on February 24. That was when I [...] Insecurity: No Food Insecurity (01/15/2024) Received from [facility] Hunger Screening Within the past 12 months [...] No Stress Concern Present (05/21/2023) Received from [facility] [place] of Occupational [facility] - Occupational Stress Questionnaire Feeling of Stress : Not at all Social Connections: Unknown (05/21/2023) [facility] Social Connection and Isolation Panel [NHANES] Frequency of Communication with Friends and Family: More than three times a week Frequency of Social Gatherings with Friends and Family: Not on file Attends Sabianist Services: Not on file Active Member of Clubs or Organizations: Not on file Attends Club or Organization Meetings: Not on file Marital Status: Not on file Intimate Partner Violence: Unknown (10/08/2023) Received from [facility] Safety & Environment Fear of Current or [...] Last Year: No ALLERGIES: Allergies Allergen Reactions Beaver Itching, Other, Unknown and Rash Other reaction(s): [...] and Runny nose Other Other Annotation - [id number]: Nickel, Beaver, Gold Compounding Gold Au 198 Unknown, Itching, Other and Rash Other reaction(s): Welts itching Gold Keratinate Unknown, Itching, Other and Rash itching Beaver Nickel welts Other reaction(s): Welts Other reaction(s): [...] we can proceed in February. Seeing her predictive maintenance technician on February 24. That was when I [...] again. 30 minutes spent with patient on mkwi-ph-huux interaction, history/documentation, education, and coordination of care. Dr. Nolan Julio M.D., MPH Director of Bariatric & Minimally Invasive Surgery [place] [address] T: [phone] F: [phone] Rupinder Liriano, RN Oral And Maxillofacial Pathologist Nurse Lead Javascript Engineer, Slat Basket Maker Helper Machine - Bariatric/General Surgery [facility] Patient Nursing Contact T: [phone] F: [phone] documented in this [facility] Work Phone: 1(210) 713-527110-14-2024 Instructions* Patient Instructions* Nolan Julio MD MPH - 05/30/2024 2:00 PM EDT PLAN: Chew well and eat slowly We can do that botox and strethching again Call if the swallowing gets worse and we can do this again. Dr. Nolan Julio M.D., MPH Director of Bariatric & Minimally Invasive Surgery [place] [address] T: [phone] F: [phone] Rupinder Liriano, RN Oral And Maxillofacial Pathologist Nurse Lead Javascript Engineer, Slat Basket Maker Helper Machine - Bariatric/General Surgery [facility] Patient Nursing Contact T: [phone] F: [phone] documented in this [facility] Work Phone: 1(792) 383-108010-08-2024 History of Present illness Narrative* HEMAL Guerra [...] other nonspecific skin eruption Right Upper Back [place] patches and plaques Start Clobetasol Ointment BID [...] Visit: 10 day S/R documented in this encounterWestern Missouri Medical CenterCvsjiukeiz75-59-0690 History of Present illness Narrative* Nolan Julio [...] hardly swallow Limited responses as at local [facility]. Eating more but up 4 lbs. [...] LAST IMPRESSION VISIT NOTE: Esophagogastroduodenoscopy (EGD) Order# [id number] Reading physician: Nolan Julio MD MPH Ordering [...] Julio MD MPH 03/31/2024 0831 Procedure Location [place] [address] [place] [address] Referring Provider Rock Alanis MD Procedure Provider Nolan Julio MD MPH Result History Esophagogastroduodenoscopy (EGD) w Dilation TTS (Order #[id number]) on 03/31/2024 - Order Result History Report [...] we can proceed in February. Seeing her predictive maintenance technician on February 24. That was when I [...] Aortic aneurysm of unspecified site, without rupture ([facility]) Aseptic necrosis of medial femoral condyle (Multi) Complex regional pain syndrome affecting both upper arms Obstructive sleep apnea syndrome Pulmonary hypertension (Multi) Lung mass Shy-Drager syndrome (Multi) Penetrating ulcer of aorta ([facility]) Asthma ([facility]) CHF (congestive heart failure) (Multi) Chronic heart [...] episode, moderate (Multi) Infection of prosthetic joint ([facility]) Obesity with body mass index 30 or greater Pacemaker Paroxysmal atrial fibrillation (Multi) Parkinson's disease (Multi) Persistent insomnia Physical deconditioning Prediabetes Presence of stent in coronary artery Primary osteoarthritis of both knees Prosthetic joint loosening ([facility]) Restless legs syndrome Rosacea PAST SURGICAL HISTORY: [...] Insecurity: No Food Insecurity (01/15/2024) [facility] Hunger Screening Within the past 12 [...] No Stress Concern Present (05/21/2023) Received from [facility] [place] of [facility] - Occupational Stress Questionnaire Feeling of Stress : Not at all Social Connections: Unknown (05/21/2023) Received from [facility] Social Connection and Isolation Panel [NHANES] Frequency of Communication with Friends and Family: More than three times a week Frequency of Social Gatherings with Friends and Family: Not on file Attends Sabianist Services: Not on file Active Member of Clubs or Organizations: Not on file Attends Club or Organization Meetings: Not on file Marital Status: Not on file Intimate Partner Violence: Unknown (10/08/2023) Received from [facility] [place] Safety & Environment Fear of [...] Last Year: No ALLERGIES: Allergies Allergen Reactions Beaver Itching, Other, Unknown and Rash Other reaction(s): [...] and Runny nose Other Other Annotation - [id number]: Nickel, Beaver, Gold Compounding Gold Au 198 Unknown, Itching, Other and Rash Other reaction(s): Welts itching Gold Keratinate Unknown, Itching, Other and Rash itching Beaver Nickel welts Other reaction(s): Welts Other reaction(s): [...] we can proceed in February. Seeing her predictive maintenance technician on February 24. That was when I [...] Director of Bariatric & Minimally Invasive Surgery [place] [address] T: [phone] F: [phone] Rupinder Liriano, RN Oral And Maxillofacial Pathologist Nurse Lead Javascript Engineer, Slat Basket Maker Helper Machine - Bariatric/General Surgery [facility] Patient Nursing Contact T: [phone] F: [phone] documented in this encounterShelby [facility] Work Phone: 1(321) 989-850308-22-2024 History of Present illness Narrative* Douglas Will [...] (Lomotil) 2.5-0.025 MG tablet documented in this encounterWestern Missouri Medical CenterWrbnqmxmmn92-93-1375 Nurse Note* Jennifer Franco RN - 04/01/2024 3:14 PM EDT 1513 Discharge instructions reviewed with pt and pts . All questions and concerns addressed.IV's removed. Feeding formula provided to pt. [facility]08-16-2024 Nurse Note* Jennifer Franco RN - [...] morning tomorrow, let resident Dr. Oliva and gauge machine operator know, was told pt may start it [...] secure chat with team. documented in this [facility] Work Phone: 1(417) 855-785408-16-2024 Hospital Discharge instructions* Discharge Instructions* Juan Carlos [...] Bariatric surgery within 1 month of discharge. Community Reinvestment Act Officer/appointment services has been requested to makean appointment for you, however if you do not hear back from them within 1 to 2 days, please call your primary physician's office to schedule an appointment. Bring your photo ID and insurance card toyour appointment. [facility] transcript clerk services can be reached at [phone]. If you experience any worsening symptoms or have any concerns, please contact your primary care provider to schedule an appointment. If you cannot get in touch with your primary care physician, please return to the nearest emergency room or urgent care clinic for an evaluation and treatment. Thank you for choosing [facility] and allowing us to partake in your medical care! - Your [facility] inpatient primary care team. documented in this [facility] Work Phone: 1(743) 637-996208-16-2024 History of Present illness Narrative* Rock Alanis [...] not drive-spouse does, PEG tube with TF ([employer] supplier- reports she has all needed supplies) Type of Residence Private residence Number of Stairs to Enter Residence 0 Number of Stairs Within Residence 0 Do you have animals or pets at home? No Who is requesting discharge planning? Provider Home or Post Acute Services In home services Type of Home Care Services DME or oxygen (new orders for tubefeeds faxed to Lilibeth @[phone]) Expected Discharge Disposition Home Does the patient need discharge transport arranged? No 04/01/2024 1516: Patient sent home with tube feed for 3 days as requested by gauge machine operator. * Marilyn Alexadnra RD - 03/31/2024 3:40 PM EDT Nutrition [...] ttimes she could not swalow water. Noted SHANK MAKER recs for pleasure feeds; plan for EGD [...] Poor < 50 % Allergies Allergen Reactions Beaver Itching, Other, Unknown and Rash Other reaction(s): [...] nose Other Other Annotation - [id number]: Nickel, Beaver, Gold Compounding Gold Au 198 Unknown, Itching, Other and Rash Other reaction(s): Welts itching Gold Keratinate Unknown, Itching, Other and Rash itching Beaver Nickel welts Other reaction(s): Welts Other reaction(s): [...] Coordination of Care: MONSE JorgeTCC, MONSE BillyTCC, OMAR Johnston; Nanette, RN; Dr. Alanis, Dr. Brannon (resident) [...] AGE: 83 y.o., GENDER: female, , ROOM: [address] [place] [address] CODE STATUS: Full Code Attending Physician: Donnie [...] PATHOLOGY EXAM Nolan Julio MD MPH 03/31/2024 0886 Procedure Location [address] [address] Referring Provider Rock Alanis MD Procedure Provider Nolan Julio MD MPH ECG 12 lead Result Date: 03/29/2024 Atrial-paced rhythm Left axis deviation Voltage criteria for left ventricular hypertrophy Abnormal ECG When compared with ECG of 03-JUL-2020 15:36, QRS axis Shifted left See ED provider note for fullinterpretation and clinical correlation Confirmed by Tami Barragan ([id number]) on 03/29/2024 6:06:09 PM [place] modified barium swallow study Result Date: 03/29/2024 Interpreted By: Kelsey Farias and Mayer Katherine STUDY: [place] MODIFIED BARIUM SWALLOW STUDY;; 03/29/2024 8:59 am INDICATION: Signs/Symptoms:Dysphagia. COMPARISON: Chest radiographs 03/28/2024 ACCESSION NUMBER(S): [id number] ORDERING CLINICIAN: DONNIE THORPE TECHNIQUE: Modified Barium Swallow Study completed. Informed verbal consent obtained prior to completion of exam. Trials of thin, nectar/mildly thick liquid, honey/moderately thick liquid, puree solids were given. SHANK MAKER: Tami Neely, SHANK MAKER Contact info: [employer] chat Fluoroscopy time: 1:13 SPEECH FINDINGS: Reason for Referral: dysphagia Patient Hx: Achalasia with history of PEG for nutrition. Recent dilation of esophagus. Respiratory Status: Room air Current diet: pleasure feeds only, unable to tolerate same for 2 weeks Pain: Pain Scale: 0-10 Ratin FINAL SPEECH RECOMMENDATIONS DIET: NPO for nutrition, hydration and medication. Occasional pleasure feeds as tolerated. Plan: SHANK MAKER Plan: No treatment needs identified at thistime [...] enter airway, above vocal cords, no residue [place] Thick Liquids: 2. PENETRATION that CLEARS - contrast enter airway, above vocal cords, no residue Honey Thick Liquids: 1. NO ASPIRATION & NO PENETRATION - no aspiration, contrast does not enter airway Speech Therapy section of this report signed by Tami Neely MS, CCC/SHANK MAKER on 03/29/2024 at 9:08 am. 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 Age indeterminate mild T12 anterior wedging. Radiology section of this report signed by Dr. Kelsey Farias DO. Modified barium swallow study as detailed within the report. MACRO: None Signed by: Kelsey Farias 03/29/2024 5:37 PM Dictation workstation: [id number] Electrocardiogram, 12-lead PRN ACS symptoms Result Date: [...] INDICATION: Signs/Symptoms:difficulty swallowing. COMPARISON: 11/29/2021. ACCESSION NUMBER(S): [id number] ORDERING CLINICIAN: MALORIE MALDONADO FINDINGS: CARDIOMEDIASTINAL SILHOUETTE: [...] Reyna Jin 03/28/2024 2:47 PM Dictation workstation: [id number] XR lumbar spine 2-3 views Result Date: 03/17/2024 THIS EXAM WAS PERFORMED AT [facility] [place] HISTORY: An 83 year old female with [...] in 12/09/2023, arthritis, hypothyroidism, hypertension presents to [facility] ED with a c/o difficulty eating and [...] on board,performed EGD with botulinum injection at [facility] Plan: -Ordered UGI Esophagram per Bariatric [...] on EGD findings. Donnie Thorpe DO * Juan Carlos Brannon DO - 03/30/2024 3:36 PM EDT Internal Medicine - Daily Progress Note Hospital Day: 3 Name:Leyla Lambert, AGE: 83 y.o., GENDER: female, , ROOM: [address] [place] [address] CODE STATUS: Full Code Attending Physician: Donnie [...] Results from last 72 hours Lab Units 03/30/2475203/29/24 0703/28/24 1403 SODIUM mmol/L 140 141 141 POTASSIUM mmol/L 3.8 4.5 4.9 CHLORIDE mmol/L 106 104 103 CO2 mmol/L 25 28 29 BUN mg/dL 27* 24* 25* CREATININE mg/dL 0.99 0.96 1.10* GLUCOSE mg/dL 88 96 94 CALCIUM mg/dL 7.1* 7.8* 9.3 ANION GAP mmol/L EGFR mL/min/1.73m*2 56* 58* 50* PHOSPHORUS mg/dL 2.7 4.6 -- Results from last 72 hours Lab Units 03/30/2475203/29/24 0703/28/24 1403 WBC AUTO x10*3/uL 5.9 6.8 7.1 [...] and clinical correlation Confirmed by Tami Barragan ([id number]) on 03/29/2024 6:06:09 PM FL modified barium swallow study Result Date: 03/29/2024 Interpreted By: Kelsey Farias and Mayer Katherine STUDY: FL MODIFIED BARIUM SWALLOW STUDY;; 03/29/2024 8:59 am INDICATION: Signs/Symptoms:Dysphagia. COMPARISON: Chest radiographs 03/28/2024 ACCESSION NUMBER(S): [id number] ORDERING CLINICIAN: DONNIE THORPE TECHNIQUE: Modified Barium Swallow Study completed. Informed verbal consent obtained prior to completion of exam. Trials of thin, nectar/mildly thick liquid, honey/moderately thick liquid, puree solids were given. SHANK MAKER: MOLLY Ortega Contact info: [employer] chat Fluoroscopy time: 1:13 SPEECH FINDINGS: Reason for Referral: dysphagia Patient Hx: Achalasia with history of PEG for nutrition. Recent dilation of esophagus. Respiratory Status: Room air Current diet: pleasure feeds only, unable to tolerate same for 2 weeks Pain: Pain Scale: 0-10 Ratin FINAL SPEECH RECOMMENDATIONS DIET: NPO for nutrition, hydration and medication. Occasional pleasure feeds as tolerated. Plan: SHANK MAKER Plan: No treatment needs identified at thistime [...] enter airway, above vocal cords, no residue Belden Thick Liquids: 2. PENETRATION that CLEARS - contrast enter airway, above vocal cords, no residue Honey Thick Liquids: 1. NO ASPIRATION & NO PENETRATION - no aspiration, contrast does not enter airway Speech Therapy section of this report signed by Tami Neely MS, CCC/SHANK MAKER on 03/29/2024 at 9:08 am. 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 Age indeterminate mild T12 anterior wedging. Radiology section of this report signed by Dr. Kelsey Farias DO. Modified barium swallow study as detailed within the report. MACRO: None Signed by: Kelsey Farias 03/29/2024 5:37 PM Dictation workstation: [id number] Electrocardiogram, 12-lead PRN ACS symptoms Result Date: [...] INDICATION: Signs/Symptoms:difficulty swallowing. COMPARISON: 11/29/2021. ACCESSION NUMBER(S): [id number] ORDERING CLINICIAN: MALORIE MALDONADO FINDINGS: CARDIOMEDIASTINAL SILHOUETTE: [...] Reyna Jin 03/28/2024 2:47 PM Dictation workstation: [id number] XR lumbar spine 2-3 views Result Date: 03/17/2024 THIS EXAM WAS PERFORMED AT [facility] [place] HISTORY: An 83 year old female with [...] in 12/09/2023, arthritis, hypothyroidism, hypertension presents to [facility] ED with a c/o difficulty eating and [...] the esophagram pushed over in pacs from [facility] Discharge planning, anticipate discharge by 04/01/2024 after [...] upper sphincter, no signs of aspiration Obtain SHANK MAKER consult Get the esophagram pushed over in pacs from [facility] I spent 45 minutes in the professional [...] dissection in 12/09/2023, arthritis, hypothyroidism, hypertension presents [facility] ED with a c/o difficulty eating and [...] #Dizziness/lightheadedness: Will hold home Dianna IVF: PRN Electrolytes: Replete as needed Diet: [...] on . Donnie Thorpe DO * Ania London, OMAR - 03/29/2024 9:49 AM EDT 03/29/24 0986 Discharge Planning Living Arrangements Spouse/significant other Support [...] Services None Expected Discharge Disposition Home * MOLYL Ortega - 03/29/2024 8:59 AM EDT Speech-Language Pathology Inpatient Modified Barium Swallow Study Patient Name: Leyla Lambert : 1940 Today's Date: 03/29/24 Time Calculation Start Time: 829 Stop Time: 50 Time Calculation (min): 20 min Modified Barium Swallow Study completed. Informed verbal consent obtained prior to completion of exam. Trials of thin, nectar/mildly thick liquid, honey/moderately thick liquids were given. SHANK MAKER: MOLLY Ortega Contact info: [email or web address] secure chat Fluoroscopy time: 1:13 Reason for Referral: dysphagia Patient Hx: Achalasia with history of PEG for nutrition. Recent dilation of esophagus. Respiratory Status: Room air Current diet: pleasure feeds only, unable to tolerate same for 2 weeks Pain: Pain Scale: 0-10 Ratin FINAL SPEECH RECOMMENDATIONS DIET: NPO for nutrition, hydration and medication. Occasional pleasure feeds as tolerated. Plan: SHANK MAKER Plan: No treatment needs identified at this [...] clearance - Minimal to no esophageal clearance SHANK MAKER Impressions with Severity Rating: Pt presents with [...] enter airway, above vocal cords, no residue Belden Thick Liquids: 2. PENETRATION that CLEARS - contrast enter airway, above vocal cords, no residue Honey Thick Liquids: 1. NO ASPIRATION & NO PENETRATION - no aspiration, contrast does not enterairway [facility] Work Phone: 1([phone]) 319-721308-16-2024 Plan of care note* Care Plan - Robbie Moore RN - 04/01/2024 10:58 AM EDT The patient's goals for the shift include patient will maintain adequate nutritional status. The clinical goals for the shift include patient will have pain controlled this shift [facility]08-16-2024 Miscellaneous Notes* Care Plan - Robbie [...] in 12/09/2023, arthritis, hypothyroidism, hypertension presents to [facility] ED with a c/o difficulty eating and [...] surgeon. An upper GI was done in [place] that showed marked dysmotility. She admits to [...] shift include pain control documented in this [facility] Work Phone: 1(365) 247-159908-15-2024 Nurse Note* Caryn Salmon RN - 03/31/2024 8:05 PM EDT 1929: assumed pt care 2104: pt refused to get vital 1.5 tube feed, states it would keep her up all night, states she usually takes it in the morning & is willing to start in the morning tomorrow, let resident Dr. Oliva and gauge machine operator know, was told pt may start it in the morning 2110: pt is on trazadone 150 mg PO but got an error message stating this med can prolong the QT interval with propofol, asking resident DR. Oliva [facility]08-15-2024 Consult note* Kelly Martini RRT - [...] needed at this time. Kelly Martini RRT [facility]08-15-2024 Consult note* Kelly Martini RRT - [...] earlier today. [facility] [place] [place] Gu[facility]rier d/t not being able [...] History No family history on file. Allergies Beaver, Droxidopa, Latex, Nickel, Acetaminophen-codeine, Codeine, Levonorgestrel-ethinyl estrad, [...] ttimes she could not swalow water. Noted SHANK MAKER recs for pleasure feeds; plan for EGD [...] Poor < 50 % Allergies Allergen Reactions Beaver Itching, Other, Unknown and Rash Other reaction(s): [...] nose Other Other Annotation - 04Oct2018: Nickel, Beaver, Gold Compounding Gold Au 198 Unknown, Itching, Other and Rash Other reaction(s): Welts itching Gold Keratinate Unknown, Itching, Other and Rash itching Beaver Nickel welts Other reaction(s): Welts Other reaction(s): [...] N/A Recommendations: Regular diet, pleasure feeds per SHANK MAKER recs TF recs: 1 can (250 ml) [...] History No family history on file. Allergies Beaver, Droxidopa, Latex, Nickel, Acetaminophen-codeine, Codeine, Levonorgestrel-ethinyl estrad, [...] the esophagram pushed over in pacs from [place] I spent 90 minutes in the professional and overall care of this patient. Rock Alanis MD [facility] Work Phone: 1(557) 102-673508-15-2024 Plan of care note* Care Plan - Cecelia Cid RN - 03/31/2024 10:13 AM EDT The patient's goals for the shift include patient will use call light for assistance this shift The clinical goals for the shift include patient will have pain controlled this shift [facility]08-15-2024 Consult note* Rock Alanis MD - 03/31/2024 7:36 AM EDT Reason For Consult Dysphagia, poor enteral feeding tolerance History Of Present Illness Leyla Lambert is a 83 y.o. female presenting with dysphagia and poor enteric intake. Seen in the bariatric office earlier today. Feeding tube placed 01/16/24 @ [facility] [place] Dr. Guerrier d/t not being able to [...] History No family history on file. Allergies Beaver, Droxidopa, Latex, Nickel, Acetaminophen-codeine, Codeine, Levonorgestrel-ethinyl estrad, [...] fluids at that time Rock Alanis MD [facility] Work Phone: 1(718) 933-136108-14-2024 Plan of care note* Care Plan - Corrina Avitia LPN - 03/30/2024 8:12 PM EDT The patient's goals for the shift include pain control The clinical goals for the shift include patient will not fall this shift T [facility]08-14-2024 Nurse Note* Kelly Taveras RN - [...] be having liquid bowel movements. Team notified. T [facility]08-14-2024 Hospital Note* Hospital Course - Savanna [...] in 12/09/2023, arthritis, hypothyroidism, hypertension presents to [facility] ED with a c/o difficulty eating and [...] surgeon. An upper GI was done in [place] that showed marked dysmotility. She admits to [...] emergency room/urgent care for evaluation and treatment. [facility] Work Phone: 1(570) 554-977808-14-2024 Nurse Note* Kelly Taveras RN - 03/30/2024 [...] call if she experiences nausea or vomiting. [facility] Work Phone: 1([phone]) 325-260808-14-2024 Plan of care note* Care Plan - Kelly Taveras RN - 03/30/2024 7:41 AM EDT The patient's goals for the shift include pain control The clinical goals for the shift include patient will not fall this shift [facility] Work Phone: 1([phone]) 346-684608-13-2024 Consult note* Marilyn Alexandra RD - 03/29/2024 [...] ttimes she could not swalow water. Noted SHANK MAKER recs for pleasure feeds; plan for EGD [...] Poor < 50 % Allergies Allergen Reactions Beaver Itching, Other, Unknown and Rash Other reaction(s): [...] nose Other Other Annotation - 04Oct2018: Nickel, Beaver, Gold Compounding Gold Au 198 Unknown, Itching, Other and Rash Other reaction(s): Welts itching Gold Keratinate Unknown, Itching, Other and Rash itching Beaver Nickel welts Other reaction(s): Welts Other reaction(s): [...] kg (131 lb) Weight 03/28/2024 1145 03/28/2024 183 Weight: 47.2 kg (104 lb) 46.6 kg [...] N/A Recommendations: Regular diet, pleasure feeds per SHANK MAKER recs TF recs: 1 can (250 ml) [...] as available Time Spent (min): 60 minutes [facility] Work Phone: 1(672) 837-544108-13-2024 Nurse Note* Kelly Taveras RN - 03/29/2024 10:38 AM EDT 1042 Discussing with doctors what the plan is to feed this patient. Patient and verbalized having a plan to get EGD , barium swallow is finished as of this morning, hoping to have a diet order started/maintained until then. Messages in secure chat with team. [facility] Work Phone: 1([phone]) 159-703908-13-2024 Plan of care note* Care Plan - Kelly Taveras RN - 03/29/2024 8:03 AM EDT The patient's goals for the shift include pain control The clinical goals for the shift include patient will go to barium swallow today [facility] Work Phone: [phone]) 290-241708-12-2024 Plan of care note* Care Plan - Evelin Alexander RN - 03/28/2024 6:43 PM EDT The patient's goals for the shift include pain control The clinical goals for the shift include pain control [facility] Work Phone: [phone] 531-476908-12-2024 History and physical note* Savanna Avilez MD [...] and has a G-tube. HPI HPI: Leyla Lmabert is a 83 y.o. 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 An upper GI was done in [place] that showed marked dysmotility. She admits to [...] Resource Strain: Low Risk (05/03/2022) Received from [facility] Overall Financial Resource Strain (CARDIA) Difficulty of Paying Living Expenses: Not hard at all Food Insecurity: No Food Insecurity (01/15/2024) Received from [facility] Hunger Screening Within the past 12 months we worried whether our food would run out before we got money to buy more.: Never True Within the past 12 months the food we bought just didn't last and we didn't have money to get more.: Never True Transportation Needs: No Transportation Needs (01/15/2024) Received from [facility] PRAPARE - Transportation Lack of Transportation (Medical): No Lack of Transportation (Non-Medical): No Physical Activity: Not on file Stress: No Stress Concern Present (05/21/2023) Received from [facility] [place] of Occupational [facility] - Occupational Stress Questionnaire Feeling of Stress : Not at all Social Connections: Unknown (05/21/2023) Received from [facility] Social Connection and Isolation Panel [NHANES] Frequency of Communication with Friends and Family: More than three times a week Frequency of Social Gatherings with Friends and Family: Not on file Attends Sabianist Services: Not on file Active Member of Clubs or Organizations: Not on file Attends Club or Organization Meetings: Not on file Marital Status: Not on file Intimate Partner Violence: Unknown (10/08/2023) Received from [facility] Safety & Environment Fear of Current or Ex-Partner: Not on file Emotionally Abused: Not on file Physically Abused: Not on file Sexually Abused: Not on file Physically or Sexually Abused: Not on file Housing Stability: Low Risk (01/15/2024) Received from [facility] Housing Instability Are you worried or concerned that in the next two months you may not have stable housing that you own, rent or stay in as a part of a household?: No Tobacco Use: Low Risk (03/17/2024) Received from [facility] Patient History Smoking Tobacco Use: Never Smokeless Tobacco Use: Never Passive Exposure: Not on file Recent Concern: Tobacco Use - Medium Risk (03/16/2024) Received from [facility] Patient History Smoking Tobacco Use: Former Smokeless Tobacco Use: Never Passive Exposure: Not on file Social History Substance and Sexual Activity Alcohol Use Not on file Allergies Allergies Allergen Reactions Beaver Itching, Other, Unknown and Rash Other reaction(s): [...] nose Other Other Annotation - 04Oct2018: Nickel, Beaver, Gold Compounding Gold Au 198 Unknown, Itching, Other and Rash Other reaction(s): Welts itching Gold Keratinate Unknown, Itching, Other and Rash itching Beaver Nickel welts Other reaction(s): Welts Other reaction(s): [...] INDICATION: Signs/Symptoms:difficulty swallowing. COMPARISON: 11/29/2021. ACCESSION NUMBER(S): [id number] ORDERING CLINICIAN: MALORIE MALDONADO FINDINGS: CARDIOMEDIASTINAL SILHOUETTE: [...] Reyna Jin 03/28/2024 2:47 PM Dictation workstation: [id number] Assessment and Plan Problem list: Principal Problem: [...] in 12/09/2023, arthritis, hypothyroidism, hypertension presents to [facility] ED with a c/o difficulty eating and [...] optimize her antiemetic regimen. Donnie Thorpe DO [facility] Work Phone: 1([phone]) 839-105208-12-2024 History and physical note* Savanna Avilez MD [...] in 12/09/2023, arthritis, hypothyroidism, hypertension presents to [facility] ED with a c/o difficulty eating and [...] surgeon. An upper GI was done in [place] that showed marked dysmotility. She admits to [...] Resource Strain: Low Risk (05/03/2022) Received from [facility] Overall Financial Resource Strain (CARDIA) Difficulty of Paying Living Expenses: Not hard at all Food Insecurity: No Food Insecurity (01/15/2024) [facility] Hunger Screening Within the past 12 months we worried whether our food would run out before we got money to buy more.: Never True Within the past 12 months the food we bought just didn't last and we didn't have money to get more.: Never True Transportation Needs: No Transportation Needs (01/15/2024) [facility] PRAPARE - Transportation Lack of Transportation (Medical): No Lack of Transportation (Non-Medical): No Physical Activity: Not on file Stress: No Stress Concern Present (05/21/2023) [facility] [place] of Occupational Health - Occupational Stress Questionnaire Feeling of Stress : Not at all Social Connections: Unknown (05/21/2023) Received from [facility] Social Connection and Isolation Panel [NHANES] Frequency of Communication with Friends and Family: More than three times a week Frequency of Social Gatherings with Friends and Family: Not on file Attends Sabianist Services: Not on file Active Member of Clubs or Organizations: Not on file Attends Club or Organization Meetings: Not on file Marital Status: Not on file Intimate Partner Violence: Unknown (10/08/2023) Received from [facility] [place] Safety & Environment Fear of Current or Ex-Partner: Not on file Emotionally Abused: Not on file Physically Abused: Not on file Sexually Abused: Not on file Physically or Sexually Abused: Not on file Housing Stability: Low Risk (01/15/2024) Received from [facility] Housing Instability Are you worried or concerned that in the next two months you may not have stable housing that you own, rent or stay in as a part of a household?: No Tobacco Use: Low Risk (03/17/2024) Received from [facility] Patient History Smoking Tobacco Use: Never Smokeless Tobacco Use: Never Passive Exposure: Not on file Recent Concern: Tobacco Use - Medium Risk (03/16/2024) Received from [facility] Patient History Smoking Tobacco Use: Former Smokeless Tobacco Use: Never Passive Exposure: Not on file Social History Substance and Sexual Activity Alcohol Use Not on file Allergies Allergies Allergen Reactions Beaver Itching, Other, Unknown and Rash Other reaction(s): [...] nose Other Other Annotation - 04Oct2018: Nickel, Beaver, Gold Compounding Gold Au 198 Unknown, Itching, Other and Rash Other reaction(s): Welts itching Gold Keratinate Unknown, Itching, Other and Rash itching Beaver Nickel welts Other reaction(s): Welts Other reaction(s): [...] INDICATION: Signs/Symptoms:difficulty swallowing. COMPARISON: 11/29/2021. ACCESSION NUMBER(S): [id number] ORDERING CLINICIAN: MALORIE MALDONADO FINDINGS: CARDIOMEDIASTINAL SILHOUETTE: [...] Reyna Jin 03/28/2024 2:47 PM Dictation workstation: [id number] Assessment and Plan Problem list: Principal Problem: [...] in 12/09/2023, arthritis, hypothyroidism, hypertension presents to [facility] ED with a c/o difficulty eating and [...] regimen. Donnie Thorpe DO documented in this [facility] Work Phone: 1([phone]) [phone] Consult note* Rock Alanis MD - 03/28/2024 4:50 PM EDT Reason For Consult Dysphagia, poor enteral feeding tolerance History Of Present Illness Leyla Lambert is a 83 y.o. female presenting with dysphagia and poor enteric intake. Seen in the bariatric office earlier today. [place] @ [place] Dr[place] Guerrier d/t not being able to [...] History No family history on file. Allergies Beaver, Droxidopa, Latex, Nickel, Acetaminophen-codeine, Codeine, Levonorgestrel-ethinyl estrad, [...] the esophagram pushed over in pacs from [place] I spent 90 minutes in the professional and overall care of this patient. Rock Alanis MD [facility] Work Phone: 1([phone]) 214-840008-12-2024 History of Present illness Narrative* Nolan Julio [...] of mucous production. Feeding tube placed 01/16/24@ [facility] Dr[address] d/t not being able [...] we can proceed in February. Seeing her predictive maintenance technician on February 24. Continue to chew well. [...] only raise your head Esophagogastroduodenoscopy (EGD) Order# [id number] Reading physician: Nolan Julio MD MPH Ordering provider: Nolan Julio MD MPH Study date: 09/17/2022 Result Information Status: Edited Result - FINAL (Collected: 05/01/2021 11:14) Provider Status: Ordered Result Text Result Text Patient Name: Leyla Lambert Procedure Date: 05/01/2021 11:14 AM Date of : 1940 Admit Type: Outpatient Site: [facility] Procedure Room 2 Ethnicity: Not or Race: White Attending MD: Nolan Julio MD, [id number] Procedure: Upper GI endoscopy Indications: Suspected esophageal reflux, LPRD Providers: Nolan Julio MD (Doctor), Cindy Tse RN (Nurse), Vandana Toussanit, Welder Operator Referring: Nolan Julio MD Medicines: Monitored Anesthesia Care Complications: [...] by the physician, the nurse and the tower technician in the pre-procedure area in the endoscopy [...] 2 weeks. Procedure Code(s): --- Professional --- 85040, Esophagogastroduodenoscopy, flexible, transoral; with biopsy, single or multiple Diagnosis Code(s): --- Professional --- K44.9, Diaphragmatic hernia without obstruction or gangrene K29.50, Unspecified chronic gastritis without bleeding CPT copyright 2020 [employer]. All rights reserved. The codes documented in this report are preliminary and upon computer language coder review may be revised to meet current compliance requirements. Attending Participation: I was present and participated during the entire procedure, including non-carvalho portions. MD Nolan Up MD 05/01/2021 5:05:47 PM This report has been signed electronically. Number of Addenda: 0 Note Initiated On: 05/01/2021 11:14 AM Esophageal Impedance Order# [id number] Reading physician: Nolan Julio MD MPH Ordering provider: Nolan Julio MD MPH Study date: 09/17/2022 Result Information Status: Edited Result - FINAL (Collected: 05/01/2021 16:41) Provider Status: Ordered Result Text Result Text Patient Name: Leyla Lambert Procedure Date: 05/01/2021 4:41 PM Date of : 1940 Admit Type: Outpatient Site: [facility] Procedure Room 2 Ethnicity: Not or Race: White Attending MD: Nolan Julio MD, [id number] Procedure: Ambulatory esophageal pH and impedance monitoring [...] 3 non-acid Procedure Code(s): --- Professional --- 39541, Esophageal function test, gastroesophageal reflux test with nasal catheter intraluminal impedance electrode(s) placement, recording, analysis and interpretation; Diagnosis Code(s): --- Professional --- R05, Cough CPT copyright 2020 [employer]. All rights reserved. The codes documented in this report are preliminary and upon computer language coder review may be revised to meet current compliance requirements. MD Nolan Up MD 05/15/2021 1:38:52 PM This report has been signed electronically. Number of Addenda: 0 Note Initiated On: 05/01/2021 4:41 PM Linked Documents View Image External Procedure Report Open External Result Report Esophageal Impedance: Patient Communication Add Comments *PROVIDER (REMOTE) NOTES: [facility] Outside Information Toni Moore MD [...] LAD stent. In 11/01, she was in [facility] for the past four months and had seen her predictive maintenance technician in [facility] due to chest pain and shortness of [...] in and out of the [facility] and [facility] due to having severe headaches and passing out starting on 04/25/2018. She says prior to this she had gotten SI joint injections and wondered if this is why she was having symptoms of fluctuation in blood pressure, lightheadedness, dizziness, as well as severe headaches. She seen Dr. Robledo at her stay and he had told [...] 2 days and then transferred to the [facility] for a total right knee replacement on 06/18/18. Ms. Lambert reports being admitted while in [place] for recurrent right knee infections. She was in the emergency room in [place] on 05/25/2019 for hypertension with a systolic [...] an echocardiogram and heart cath done in [place] in October 2019. She also says she had a PET Stress test done in [place] in October 2019. She unfortunately was admitted on 04/03/2020-04/06/2020 for Sotalol loading and again came to emergency room on 04/17/2020 for shortness of breath and tachycardia. She follows with Dr. Cesar Andrade in [place] and reports just this past winter, she had and EKG and an echocardiogram down there. Stent placement in LAD by Dr Avila at [facility] on 11/12/2021. Pacemaker checked in office by [...] the Cx, 60-70% proximal RCA stenosis. Cancer ([facility]) 1989,1991 breast cancer bilateral mastectomy Chronic cough 06/21/2012 COPD (chronic obstructive pulmonary disease) ([facility]) H/O cardiac catheterization 04/27/2015 LMCA: Normal 0% [...] CPAP 11/19/2015 patient off several years, per physical chemistry teacher Pacemaker 03/04/2017 Dr. Espana [employer] Pulmonary hypertension (HCC) patient states mild S/P cardiac cath 02/13/2012 EF >55%. Patent 1st diagonal stent. 50-60% proximal RCA stenosis. S/P cardiac cath 03/20/2017 PCI Ulcer in stomach Unspecified sleep apnea uses C Pap mx CURRENT ALLERGIES: Latex, Droxidopa, Acetaminophen-codeine, Tylenol with codeine [acetaminophen-codeine], Gold, Nickel, Seasonal, Beaver, and Gold-containing drug products REVIEW OF SYSTEMS: [...] CORONARY ANGIOPLASTY WITH STENT PLACEMENT LAD ; [facility], Dr Young DIAGNOSTIC CARDIAC BALANCE WHEEL HAND FILER PROCEDURE 2009 LMCA-normal, LAD-patent stent, CX-normal, RCA-30%,EF55-60% ENDOSCOPY, COLON, DIAGNOSTIC EYE SURGERY bilateral cataracts HYSTERECTOMY (CERVIX STATUS UNKNOWN) PARTIAL JOINT REPLACEMENT Right 01/31/2013 knee JOINT REPLACEMENT Right 01/2013 KNEE ARTHROSCOPY Right KNEE SURGERY Right 12/2013 scraped knee cap PACEMAKER INSERTION Left 03/04/2017 PACEMAKER INSERTION PERMANENT performed by Reynold Gunn MD at [facility] OR [place] SURGERY Right VENA CAVA [...] tablet Take 1 tablet by mouth nightly aqcqdosnbwn-lwnqmoijk-kakcvs (TRELEGY ELLIPTA) 100-62.5-25 MCG/INH AEPB Inhale 1 [...] Dissection: Surgery completed on November 22 at [facility] Last hemoglobin on 01/23/24 was 9.3 History [...] LAD on 11/12/[address] Avila in [place] Antiplatelet Agent: Continue clopidogrel (Plavix): Plavix 75 mg daily. Beta Nereyda: Continue Metoprolol succinate (Toprol XL) 100 mg daily. Cholesterol Reduction Therapy: Contraindicated due to history of intolerance/allergy. Paroxysmal Atrial Fibrillation: Rhythm Control Asymptomatic Stroke Risk: CHADS2-VASc Score: 5/9 (6.7% stroke risk) [id number] Score for Atrial Fibrillation Stroke Risk Risk Factors Component Value C CHF Yes 1 H HTN Yes 1 A2 Age >= 75 Yes, (83 y.o.) 2 D DM No 0 S2 Prior Stroke/TIA No 0 V Vascular Disease No 0 A Age 65-74 No, (83 y.o.) 0 Sc Sex female 1 [id number] Score 5 Score last updated 04/02/20 4:20 [...] need arise. Sincerely, Toni Moore MD, MS, [facility] Curing Oven Attendant [address] [place] [address] , I believe that the risk of [...] patient in the original system Received From: [facility] Outside Information Patrick Haynes MD Resident Internal Medicine Discharge Summary Signed Date of Service: 01/19/2024 8:49 PM Note Received: 03/22/2024 9:14 AM Signed Inpatient Discharge Summary BRIEF OVERVIEW Admitting Provider: Drea Brown MD Discharge Provider: No att. providers found Primary Care Physician at Discharge: DOUGLAS WILL MD [phone] Admission Date: 01/14/2024 Discharge Date: 01/19/2024 9:12 [...] Emma Zabala MD FGSP TPS FR PULM SHANK MAKER 06/23/2024 11:00 AM Rhoda Higgins MD PVCB LEON None Referrals and Follow-ups to Schedule Comprehensive [...] breast cancer status post mastectomy and chemotherapy [id number], CAD status post stent placement, chronic diastolic [...] provided. PT/OT evaluated the patient and recommended half-way facility however, patient declined. Shewanted to be [...] from last 7 days Lab Units 01/19/24 07501/18/24 0701/17/24 0607 WBC X10E9/L 6.0 6.2 8.2 HEMOGLOBIN [...] last 7 days Lab Units 01/15/24 0607 05/30/24 1652 BNP pg/mL 175* 150* Lab Results [...] Result Date: 01/02/2024 Pericardium: There is a kvepf-ny-shcoxkos fibrinous circumferential pericardial effusion anterior and posterior [...] of 55-60%. The quantitative EF by 2D Merchnat biplane is 61%. Grade I diastolic dysfunction(impaired [...] 100-62.5-25 mcg blister with device Generic drug: ptesdozylqc-iqqflckce-nsdglziz Inhale 1 puff once daily. STOP taking these medications furosemide 20 mg tablet Commonly known as: LASIX Where to Get Your Medications These medications were sent to [facility] [address] [place] [address] [address] [place] [address] [address] carbidopa-levodopa 25-100 mg per tablet fludrocortisone 0.1 [...] to go to SNF. Gautam Art MD [facility] Hospitalist Clinical hospital administrative assistant in the Department of Internal Medicine , [facility] Hospital Encounter on 01/14/2024 Note shared with patient in the original system [facility] Outcome Referrals [facility] Outside Information Surgery 01/16/2024 Leyla Lambert - 83 y.o. Female; [facility] 1939[facility] 1939[facility] Summary, generated on 2023 Reason for Visit Reason for Visit - Reason Comments Shortness of Breath Dizziness Difficulty Swallowing Auth/Cert (Routine) Reason for Visit - Auth/Cert (Routine) Specialty Diagnoses / Procedures Referred By Contact Referred To Contact Diagnoses Shortness of breath Failure to thrive in adult KARLEE (acute kidney injury) ([facility]) Dysphagia, unspecified type Drea Brown MD [address] [place] [address] Reason for Visit - Auth/Cert (Routine) Referral ID Status Reason Start Date Expiration Date Visits Requested Visits Authorized [id number] 1 1 Encounter Details Encounter Details Date Type Department Care Team (Latest Contact Info) Description 01/16/2024 7:30 AM EDT - 01/16/2024 8:26 AM EDT Surgery [facility] - Surgery [address] [place] [phone] Bright Guerrier MD [address] [address] ESOPHAGOGASTRODUODENOSCOPY INSERTION PEG TUBE [32602 (CPT )] Surgery Details - documented in this encounter Surgery Details Date/Time Status Location OR Service Patient Class Case Class Case Type Trauma Case? 01/16/24 7:30 AM Posted [facility] OR [address] [place] [address] Inpatient Elective Surgery Details Panel 1 Procedure [...] Care Physician at Discharge: DOUGLAS WILL MD [phone] Admission Date: 01/14/2024 Discharge Date: 01/19/2024 9:12 [...] Emma Zabala MD FGSP TPS FR PULM SHANK MAKER 06/23/2024 11:00 AM Rhoda Higgins MD [facility] None Referrals and Follow-ups to Schedule Comprehensive [...] breast cancer status post mastectomy and chemotherapy [id number], CAD status post stent placement, chronic diastolic [...] due to dysphagia. Patient was discharged on is and Plavix. Patient again was admitted at [...] provided. PT/OT evaluated the patient and recommended half-way facility however, patient declined. Shewanted to be [...] Result Date: 01/02/2024 Pericardium: There is a arzad-ca-qqkeixwa fibrinous circumferential pericardial effusion anterior and posterior [...] 100-62.5-25 mcg blister with device Generic drug: panytaiiayz-uqgrkkoqt-vguxxdqw Inhale 1 puff once daily. STOP taking these medications furosemide 20 mg tablet Commonly known as: LASIX Where to Get Your Medications These medications were sent to [facility] [address] [place] [address] [address] [place] [address] [address] carbidopa-levodopa 25-100 mg per tablet fludrocortisone 0.1 [...] SNF. Gautam Art MD [facility] Hospitalist Clinical hospital administrative assistant in the Department of Internal Medicine , [facility] Discharge Instructions - documented in this [...] or if you have any other complaints. [facility] Outside Information [facility]20[facility] Leyla Lambert - 83 y.o. Female; born [birth year]Encounter Summary, generated on 2023 Reason for Visit Reason for Visit - Reason Comments Follow-up Swallowing issues Encounter Details Encounter Details Date Type Department Care Team (Latest Contact Info) Description 01/14/2024 2:45 PM EDT Office Visit [facility] General Surgery [address] [place] [address] Bright Guerrier MD [address] [facility] [address] [place] [address] Failure to thrive in adult (Primary Dx); [...] 0.6 oz pure alcohol) Social History [facility] Util[facility] Answer Date Recorded In the past [...] 05/21/2023 Attends Sabianist Services Not on file 05/21/2023 Active Member [...] Recorded Total Score 0 12/21/2023 Social History [place] of Occupational Health - Occupational Stress Questionnaire [...] any questions or concerns. Bright Guerrier MD, [facility] General Surgery and Minimally Invasive Surgery Scribe Statement: Scribed for and in the presence of Bright Guerirer MD by Rosa Maria Kearney (scribe). Provider [...] Orthopedics/Trauma and Adult Reconstruction [address] [facility] [address] [place] [address] Capri Matthews, TRANSFORMER SHOP SUPERVISOR-TOWERMAN [address] [address] 06/13/2024 11:00 AM EDT Office Visit [facility] Pulmonary/Sleep Medicine [address] [place] [address] Emma Zabala MD [address] [facility] [place] [address] 06/23/2024 11:00 AM EST Office Visit [facility] Vascular Surgery [address] [place] [phone] Rhoda Higgins MD [address], [address] [address] Goals - documented as of this encounter Goals Goal Patient Goal Type Associated Problems Recent Progress Patient-Stated? Author <enter goal here> General Yes Mackenzie Anders, OMAR Note: Evaluation of progress towards goal: Patient plans for a safe discharge home with resumption of [facility] home care. Procedures - documented in [...] documented as of this encounter Care Teams Driver/Sales Workers Relationship Specialty Start Date End Date Douglas Will MD [address] [place] [address] PCP - General Family Medicine 05/20/21 Patient Demographics Patient Demographics Patient Address Patient Name Communication [address] (Home) [place] [address] Former (2017 - 2017): [address] (Home) [place] [address] Leyla Lambert Former / Aliases: Leyla Keller [email or web address] Patient Demographics Language Race / Ethnicity Marital Status Guinean - Written (Preferred) White / Not or Patient Contacts Patient Contacts Contact Name Contact Address Communication Relationship to Patient Adam Lambert [facility] [place] [address] Spouse, Emergency Contact Larisa Lambert Unknown Son, Emergency Contact Document Information Primary Care Provider Other Service Providers Document Coverage Dates Douglas Will MD (2020Oct2020 - Present) [address] [place] [address] Family Medicine [facility] [address] [place] [address] January 132023 [employer] Organization [address] [address] Encounter Providers Encounter Date Bright Guerrier MD (Attending) [address] [address] General Surgery January 132023 Legal Authenticator Him, Director [facility] CURRENT MEDICATIONS: No current facility-administered medications for [...] tablet 25 mg 25 mg oral q8h Jeses Oliva MD 25 mg at 03/30/24 0529 [...] 10 mg oral q6h PRN Donnie Linda Pinedale, DO Or prochlorperazine (Compazine) injection 10 mg 10 mg intravenous q6h PRN Donnie Linda Pinedale, DO 10 mg at 03/29/24 1352 Or prochlorperazine (Compazine) suppository 25 mg 25 mg rectal q12h PRN Donnie Linda Pinedale, DO roflumilast (Daliresp) tablet 500 mcg 500 [...] Insecurity: No Food Insecurity (01/15/2024) Received from [facility] Hunger Screening Within the past 12 months [...] No Stress Concern Present (05/21/2023) Received from [facility] [place] of Occupational Health - Occupational Stress Questionnaire Feeling of Stress : Not at all Social Connections: Unknown (05/21/2023) [facility] Social Connection and Isolation Panel [NHANES] Frequency of Communication with Friends and Family: More than three times a week Frequency of Social Gatherings with Friends and Family: Not on file Attends Sabianist Services: Not on file Active Member of Clubs or Organizations: Not on file Attends Club or Organization Meetings: Not on file Marital Status: Not on file Intimate Partner Violence: Unknown (10/08/2023) Received from [facility] [place] Safety & Environment Fear of [...] Last Year: No ALLERGIES: Allergies Allergen Reactions Beaver Itching, Other, Unknown and Rash Other reaction(s): [...] and Runny nose Other Other Annotation - [id number]: Nickel, Beaver, Gold Compounding Gold Au 198 Unknown, Itching, Other and Rash Other reaction(s): Welts itching Gold Keratinate Unknown, Itching, Other and Rash itching Beaver Nickel welts Other reaction(s): Welts Other reaction(s): [...] we can proceed in February. Seeing her predictive maintenance technician on February 24. That was when I [...] Director of Bariatric & Minimally Invasive Surgery [place] [address] T: [phone] F: [phone] Rupinder Liriano, RN Oral And Maxillofacial Pathologist Nurse Lead Javascript Engineer, Slat Basket Maker Helper Machine - Bariatric/General Surgery [facility] Patient Nursing Contact T: [phone] F: [phone] documented in this encounterShelby [facility] Hospital Work Phone: 1(242) 920-807208-12-2024 Instructions* Patient Instructions* Nolan Julio MD MPH [...] Director of Bariatric & Minimally Invasive Surgery [place] [address] T: [phone] F: [phone] Rupinder Liriano RN Oral And Maxillofacial Pathologist Nurse Lead Javascript Engineer, Slat Basket Maker Helper Machine - Bariatric/General Surgery [facility] Patient Nursing Contact T: [phone] F: [phone] documented in this encounterUnLicking Memorial Hospital Work Phone: 1(657) 550-823512-02-2023 NoteHNO ID: [id number] Author: Note, Interface Service: ? Author Type: ? Type: Progress Notes Filed: 07/18/2023 5:55 AM Note Text: Epic Scheduled Downtime: 07/18/2023 1:00:00 AM to 07/18/2023 5:38:00 [facility]11-03-2023 Hospital Discharge instructions Patient Education 06/19/2023 13:58:30 [...] provider. Document Revised: 12/12/2021 Document Reviewed: 12/12/2021 Inform Direct Patient Education 2022 Simphatic. Follow Up Care 03/04/2023 15:29:29 With:Regino CLARK, MIKKI Chris, URO Address: When:Within 8 Month(s) [facility] Joann 10-26-2023 Evaluation note* Encounter Date Diagnosis Assessment Notes Treatment Notes Treatment Clinical Notes May, Acute non-recurrent maxillary si nusitis (ICD-10 - J01.00) Will tx tody for [...] understanding and is agreeable to treatment plan. [employer] Other 09-14-2023 History of Present illness Narrative* Henna Bravo, [facility] - 04/30/2023 2:40 PM EDT [facility] Medication Management ANTICOAGULATION Referring Provider: Dr Moore [...] from wound that she was seen in [facility] on 04/19 and [place] ED on 04/22. Patient is having daily dressing changes at Dr Will's office and is seeing the [facility] in [place] for initial visit tomorrow. Patient has had a few other little spots that have bled but nothing like my leg . Patient saw Dr Bright Guerrier, general surgery, for her swallowing issues and is scheduled to have a procedure on 05/20/23. Patient will have pre- surgical testing on 05/19 at [facility]. I have contacted Dr Guerrier's office at [phone] for his preference on warfarin pre and post procedure and am awaiting a return call. Patient does not require Lovenox bridging. Patient and spouse still plan to leave for [place] for the winter after . Will continue warfarin 5mg daily for 2 weeks. Patient acknowledges working in consult agreement with pharmacist as referred by his/her physician. For Pharmacy Admin Tracking Only Intervention Detail: Adherence Monitorin Total # of Interventions Recommended: 2 Total # of Interventions Accepted: 2 Time Spent (min): 50 Henna Bravo R.Ph., 04/30/2023,3:08 PM documented in this encounterBON [facility] Hospital Discharge instructions* Patient Instructions* Henna Bravo [...] dosing calendar provided. documented in this encounterBON AKRON [facility]06-27-2023 History of Present illness Narrative* Nighat Bazzi [facility] - 02/10/2023 10:00 AM EDT [facility] Medication Management ANTICOAGULATION Referring Provider: Dr. Moore [...] 1 Time Spent (min): 20 Nighat Bazzi RP documented in this encounterSTAFFORD [facility]OSPITAL06-27-2023 Hospital Discharge instructions* Patient Instructions* Nighat Bazzi [...] to your next appointment. documented in this encounterSTAFFORD HOSPITAL06-27-2023 Hospital Discharge instructions* Discharge Instructions* Daniel Araiza MD - 02/10/2023 9:30 AM EDT Continue taking your medications as prescribed. Follow-up with your family doctor next 3 days for reevaluation of your symptoms. Return if you develop any new or worsening symptoms. Your tetanus was updated today. * Attachments The following attachments cannot be sent through Care Everywhere. * Skin Tears (Guinean) documented in this encounterSTAFFORD HOSPITAL06-20-2023 History of Present illness Narrative* Nighat Bazzi RPH - 02/03/2023 10:40 AM EDT [facility] Medication Management ANTICOAGULATION Referring Provider: Dr. Moore [...] 30 Nighat Bazzi RPH documented in this encounterSTAFFORD HOSPITAL06-20-2023 Hospital Discharge instructions* Patient Instructions* Nighat Bazzi [...] to your next appointment. documented in this encounterSTAFFORD HOSPITAL06-19-2023 Hospital Discharge instructions Patient Education 02/02/2023 15:21:53 [...] your health care provider. General instructions Take qiwa-zqj-zqavvjw and prescription medicines only as told by [...] provider. Document Revised: 04/22/2021 Document Reviewed: 04/22/2021 Inform Direct Patient Education 2022 Simphatic. Follow Up Care 12/01/2022 15:18:18 With:KATHE CLARK, Isauro More, URL Address: [address] [place], [place] [address]- When: only if needed [facility] 06-05-2023 History of Present illness Narrative* Nighat Bazzi, [facility] - 01/19/2023 10:40 AM EDT [facility] Medication Management ANTICOAGULATION Referring Provider: Dr. Moore [...] 2 Time Spent (min): 20 Nighat Bazzi [facility] documented in this encounterSTAFFORD HOSPITAL Work Phone: [phone]) [phone] Hospital Discharge instructions* Patient Instructions* Nighat Bazzi [facility] - 01/19/2023 10:40 AM EDT Hold warfarin [...] to your next appointment. documented in this encounterSTAFFORD HOSPITAL Work Phone: [phone]) 369-471205-09-2023 History of Present illness Narrative* Henna Bravo [facility] - 12/23/2022 10:00 AM EDT [facility] Medication Management ANTICOAGULATION Referring Provider: Dr Moore [...] gastroenterology, for initial visit on 01/13/23 in [place]. Patient states she was seen recently by her orthopedic at [facility] and her knee is the best it [...] R.Ph., 12/23/2022,12:22 PM documented in this encounterBON [employer] Phone: 1(285) 175-375605-09-2023 Hospital Discharge instructions* Patient Instructions* Henna Bravo [...] dosing calendar provided. documented in this encounterBON [employer] Work Phone: [phone]) [phone] NoteHNO ID: [id number] Author: Nguyễn Jean MD Service: ? Author [...] Plan. This note was partially generated using Antares Vision voice recognition system. [facility]04-26-2023 NoteHNO ID: [id number] Author: Jimbo Bauer, RT(R) Service: ? Author Type: Welder Operator Type: Progress Notes Filed: 12/10/2022 9:50 AM [...] BY: RT Betty(R) December 10, 2022 9:50 [facility]04-26-2023 History of Present illness Narrative* Nguyễn Jean [...] walker. Follow-up on a as needed basis ifshrandy has any issues she knows how to contact us. I personally evaluated this patient and agree with the note from the nurse/resident/fellow including PMH, PSH, SH, meds, allergies, and review of systems. I completed the HPI and performed the physical exam. Additionally I reviewed available imaging and wrote my interpretation. I wrote the Assessment and Plan. This note was partially generated using Anta[employer] Vision voice recognition system. documented in this encounterUniversity Hospitals Health System04-26-2023 History of Present illness Narrative* Jimbo Bauer, (R) - 12/10/2022 10:45 AM EDT Radiology Service [...] 10, 2022 9:50 AM documented in this encounterUniversity Hospitals Health System04-24-2023 History of Present illness Narrative* Shy Osuna, [facility] - 12/08/2022 10:40 AM EDT [facility] Medication Management ANTICOAGULATION Referring Provider: Dr Moore [...] Shy Osuna RPH, PharmD documented in this encounterADDISON GILBERT HOSPITALNimb[facility] LLC Phone: [phone]) [phone] Hospital Discharge instructions* Patient Instructions* Shy Osuna [...] tablet all other days. documented in this encounterBANNER DEL [facility] [employer] Phone: 1(374) 314-499504-17-2023 Hospital Discharge instructions Patient Education 12/01/2022 15:13:48 [...] fried and sweet foods. General instructions Take tmnh-sto-luhagyg and prescription medicines only as told by [...] 05/30/2010 Document Revised: 11/24/2019 Document Reviewed: 08/19/2018 Inform Direct Patient Education 2020 Simphatic. Follow Up Care 04/14/2022 14:18:15 With:KATHE CLARK, Isauro W, URL Address: [address] [place], [place] [address]- When:3 months Comments:2 month follow up [facility] 04-10-2023 Note [facility] Vascular Lower Extremities DVT Study Procedure Patient Name PETRA MAYER Date of Study 11/24/2022 A Date of 1940 Gender Female Age 82 year(s) Race Room Number Corporate ID # [id number] Patient MR # [id number] Housekeeping/Laundry Supervisor Darshana Thorne Sunita Interpreting Physician Khari Lira DO Referring [...] Right Doppler Measurements +------- (more content not included)...[facility] [id number] History of Present illness Narrative* Nighat Bazzi, [facility] - 11/24/2022 11:00 AM EDT [facility] ANTICOAGULATION Referring Provider: Dr. Moore [...] physician. Patient recently returned from winter in [place]. She reports difficulty swallowing with associatedweight loss. [...] for 4 days (as instructed per her predictive maintenance technician in [place]) due to the bleeding. Last INR in [place] on 11/15/22 was 1.03. Patient reports current [...] Nighat Bazzi RPh documented in this encounterBON [employer] Phone: 1(106) 312-701004-10-2023 Hospital Discharge instructions* Patient Instructions* Nighat Bazzi [...] your next appointment. documented in this encounterBON [employer] Work Phone: [phone]) 864-421511-19-2022 NoteHNO ID: [id number] Author: Interface Note Service: ? Author Type: ? Type: Progress Notes Filed: 07/05/2022 2:42 AM Note Text: Epic Scheduled Downtime: 07/05/2022 1:00:00 AM to 07/05/2022 2:26:04 [id number] History of Present illness Narrative* Nguyễn Jean MD - 07/02/2022 1:24 PM EST Ortho Knee Follow Up Note Narrative Referring Provider: Nguyễn Jean [address] [facility] [address] PCP: Douglas Will MD IMPRESSION/PLAN: 81 year [...] KNEE W/ EXPLORATION AND DRAINAGE (Right) Inessa (HistBerkley Odonnell MD; Td Bales MD; Robbie TobiasHist) Rickey - Posted 08/06/2016 (5yr) REVISION JOINT [...] the Assessment and Plan. documented in this encounterUniversity Hospitals Health System11-14-2022 History of Present illness Narrative* Nighat Bazzi, [facility] - 06/30/2022 11:00 AM EST [facility] Medication Management ANTICOAGULATION Referring Provider: Dr. Moore [...] in November 2022 when she returns from [place]. Patient acknowledges working in consultagreement with pharmacist as referred by his/her physician. Patient is leaving for [place] for the winter in 2 days. Patient has a predictive maintenance technician in [place] who monitors warfarin therapy. Patient states that she has a standing order for PT/INR in [place]. I encouraged patient to have INR check when she gets to [place] (approximately 1 week) as she has had [...] Nighat Bazzi RPH documented in this encounterBON [facility] Work Phone: 1(122) 593-307611-14-2022 Hospital Discharge instructions* Patient Instructions* Nighat Bazzi [...] your next appointment. documented in this encounterBON [facility] Work Phone: [phone]) 128-944610-27-2022 History of Present illness Narrative* Shy Osuna [facility] - 06/12/2022 8:40 AM EDT [facility] Medication Management ANTICOAGULATION Referring Provider: Dr. Moore [...] Shy Osuna RPH, PharmD documented in [facility] encounterREST[facility] [employer] Phone: [phone]) [phone] Hospital Discharge instructions* Patient Instructions* Shy Osuna [...] tablet all other days. documented in this encounterSENT[facility] [employer] [facility] Phone: [phone] 604-184410-19-2022 Miscellaneous Notes* Telephone Encounter - Marie Burr Adm Asst I - 06/04/2022 1:55 PM EDT Katie from [facility] called back, line scheduled for removal at [place] on 06/13 at 12:30. Left voice message with patient's nurse at [phone] per patient's request. Marie Burr Adm Asst I * Telephone Encounter - Marie Burr Adm Asst I - 06/04/2022 10:54 AM EDT Called [facility] at [phone] to schedule central line removal appointment. No answerleft detailed voice message with Sabina. Marie Burr Adm Asst I documented in this encounterUniversity Hospitals Health System10-19-2022 History of Present illness Narrative* Shy Osuna RPH - 06/04/2022 1:20 PM EDT [facility] Medication Management ANTICOAGULATION Referring Provider: Dr. Moore [...] Osuna RPH, PharmD documented in this encounterBON [facility] Work Phone: [phone]) [phone] Hospital Discharge instructions* Patient Instructions* Shy Osuna RPH - 06/04/2022 1:20 PM EDT Continue to monitor urine and stool. Continue to monitor for signs of bleeding. Return to clinic in1 week. Hold warfarin today and tomorrow then deccrease dosage to 1.5 tablets for 7.5 mg M and whole 5 mg tablet all other days. documented in this encounterBON [facility] [employer] Work Phone: [phone]) [phone] Nurse Note* Marie Burr Adm Asst I - 06/03/2022 11:20 AM EDT Orders of hold copat and home care nurse to draw random vancomycin and creatinine . Orders given to Kelly with [facility] ([phone]). Marie Burr Adm Asst I documented in this encounterUniversity Hospitals Health System10-12-2022 Miscellaneous Notes* Telephone Encounter - Sabina Cooper - 05/28/2022 12:26 PM EDT Patience called from Dr. Julio's office to get a letter of clearance that the patient is infectionfree and her list of meds faxed over for surgery. Fx number [phone] Call back number is [phone] Thank you, Sabina Cooper documented in this encounterUniversity Hospitals Health System10-05-2022 History of Present illness Narrative* Nguyễn Jean MD - 05/21/2022 1:51 PM EDT Ortho Knee Follow Up Note Narrative Referring Provider: Nguyễn Jean [address] [facility] [address] PCP: Douglas Will MD IMPRESSION/PLAN: 81 year [...] Last 180 days 05/02/22 Nguyễn Jean MD, [id number] Post-op pain ..., Admission (Discharged) Patient rates [...] the Assessment and Plan. documented in this encounterUniversity Hospitals Health System09-29-2022 History of Present illness Narrative* Shy Osuna, [facility] - 05/15/2022 2:40 PM EDT [facility] Medication Management ANTICOAGULATION Referring Provider: Dr. Moore [...] Shy Osuna RPH, PharmD documented in this encounterCHILDREN'S HOSPITAL OF THE KING'S DAUGHTERSVerdeeco Phone: [phone] Hospital Discharge instructions* Patient Instructions* Shy Osuna RPH - 05/15/2022 2:40 PM EDT Continue to monitor urine and stool. Continue to monitor for signs of bleeding. Return to clinic in4 weeks. Continue warfarin 1.5 tablets for 7.5 mg MWF and whole 5 mg tablet all other days. Stop Lovenox documented in this encounterADDISON GILBERT HOSPITALNimb[facility] Phone: [phone] 107-704009-14-2022 Miscellaneous Notes* Telephone Encounter - Marika Oviedo [facility] - 04/30/2022 4:38 PM EDT 1st report of treatment-Non oncology regimen (Venofer) Patient holds medicare coverage. No FA available to offer at this time. documented in this encounterUniversity Hospitals Health System09-13-2022 Miscellaneous Notes* Telephone Encounter - Harry Royal [...] covid test or not documented in this encounterUniversity Hospitals Health System09-09-2022 Miscellaneous Notes* Telephone Encounter - CORAL William - 04/25/2022 9:36 AM EDT 04/25/22 Patient appeared on the First Time Treatment report for a non-oncology treatment. No psychosocial assessment is indicated. JENN William documented in this encounterUniversity Hospitals Health System08-29-2022 Hospital Discharge instructions Patient Education 04/14/2022 14:15:14 [...] to keep your urine pale yellow. ?Take fjvm-xhm-southxt or prescription medicines. ?Eat foods that are high in fiber, such as beans, whole grains, and fresh fruits and vegetables. ?Limit foods that are high in fat and processed sugars, such as fried or sweet foods. General instructions Take tdri-sii-ubczjbv and prescription medicines only as told by [...] the muscles that help control urination. Take mkbb-zbc-mnfspex and prescription medicines only as told by your health care provider. Contact a health care provider if your symptoms do not improve or get worse. This information is not intended to replace advice given to you by your health care provider. Make sure you discuss any questions you have with your health care provider. Document Released: 05/30/2010 Document Revised: 02/10/2019 Document Reviewed: 02/10/2019 [employer] Patient Education 2020 [employer]. 04/14/2022 14:11:42 Overactive Bladder, Adult Overactive Bladder, [...] fried and sweet foods. General instructions Take brwq-nbf-xureqhi and prescription medicines only as told by [...] 05/30/2010 Document Revised: 11/24/2019 Document Reviewed: 08/19/2018 [employer] Patient Education 2020 [employer] Follow Up Care 01/28/2022 15:29:21 With:KATHE CLARK, Isauro More, URL Address: [address] [place] [address]- When:Within 8 Month(s) [facility] 08-18-2022 History of Present illness Narrative* Shante Woo RN - 04/03/2022 4:52 PM EDT Director Marketing reviewed discharge instructions with patient and spouse. [...] and procedure of lexiscan/cardiolite stress test. * CORLA St - 04/03/2022 9:34 AM EDT Discussed [...] Patient has advance directives but not onfile. ROOF ASSEMBLER to monitor and assist with any needs or concerns as they arise. CORAL St * Serena Whitmore RD, LD - 04/03/2022 8:57 AM EDT Nutrition Assessment [...] Too soon to determine SERENA WHITMORE RD, LD Contact: [phone] * Vahe Davila RN - 04/03/2022 8:06 AM EDT Radiology called at this time, letting advertising copy writer know that there was a VQ scan [...] appears to be 7 beats of vtach. Director Marketing immediately checked on patient to find thatshe was getting sat up in bed to get ready to use the restroom. Patient denied chest pain. Director Marketing assessed vitals. Blood pressure was slightly hypertensive but improved from previous. Director Marketing assistedpatient into the bathroom and back into bed. Director Marketing informed hematology supervisor and an EKG was completed. Director Marketing will continue to monitor and call the predictive maintenance technician if this happens again. Patient remains asymptomatic. Stress test and echo already ordered for this morning and patient is aware. Director Marketing will inform oncoming shift and make sure the predictive maintenance technician is made aware. Call light and bedside table remain within reach. Will continue to monitor and assess. * Marbella Swanson RN - 04/02/2022 6:57 PM EDT Vitals and assessment are complete at this time. Director Marketing walked patient through the medications thatwould be [...] time and has been seeing surgeon @ [facility]. Director Marketing oriented patient to room, call light within reach. Director Marketing reviewed plan of care with patient. documented in this encounterPetenko Phone: [phone]) [phone] Hospital Discharge instructions* Discharge Instr - Activity* [...] be sent through Care Everywhere. * Angina (Guinean) documented in this encounterBAN[facility] [employer] Phone: 1([phone]) 308-420808-17-2022 History of Present illness Narrative* Shy Osuna RPH - 04/02/2022 10:40 AM EDT [facility] ANTICOAGULATION Referring Provider: Dr. Moore [...] Osuna RPH, PharmD documented in this encounterBON AKRON [facility] Work Phone: [phone] Hospital Discharge instructions* Patient Instructions* Shy Osuna RPH - 04/02/2022 10:40 AM EDT Continue to monitor urine and stool. Continue to monitor for signs of bleeding. Return to clinic in4 weeks. Continue warfarin 1.5 tablets for 7.5 mg MWF and whole 5 mg tablet all other days. documented in this encounterBON [employer] Work Phone: [phone]) 164-270708-15-2022 History of Present illness Narrative* Nguyễn Jean [...] knee joint Informed Consent Consent Obtained: Verbal Stockwell Protocol A moment to CARE was completed. [...] Visit completed when applicable documented in this encounterUniversity Hospitals Health System06-28-2022 History of Present illness Narrative* Nighat Bazzi RPH - 02/11/2022 11:20 AM EDT [facility] Med[facility] Management ANTICOAGULATION Referring Provider: Dr. Moore [...] for hiatal hernia surgery on 02/28/22 at [facility]. She has not received warfarin hold instructions [...] 20 Nighat Bazzi RPH documented in this encounterSTAFF[facility] Work Phone: [phone] Hospital Discharge instructions* Patient Instructions* Nighat Bazzi [...] your next appointment. 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 Use as instructed on package viuyyxtyghb-kwxuwocuq-bdrrdcxo (TRELEGY ELLIPTA) 100-62.5-25 mcg Inhale 1 Puff [...] TIME: 12:18 PM PAGER: documented in this encounterUniversity Hospitals Health System06-15-2022 History of Present illness Narrative* Nighat Bazzi, [facility] - 01/29/2022 10:40 AM EDT [facility] Medication Management ANTICOAGULATION Referring Provider: Dr. Bruhl GOAL INR: 2-3 TODAY'S INR: 4.1 WARFARIN [...] be seeing a spine doctor at the [facility] on 02/06/22. Patient also reports she is scheduled for hiatal hernia surgery on 02/28/22 at [facility]. For Pharmacy Admin Tracking Only Intervention Detail: Adherence Monitorin and Dose Adjustment: 2, reason: Therapy Optimization Total # of Interventions Recommended: 3 Total # of Interventions Accepted: 3 Time Spent (min): 30 Nighat Bazzi RPH documented in this encounterBON [employer] Phone: [phone] Hospital Discharge instructions* Patient Instructions* Nighat Bazzi [...] your next appointment. documented in this encounterBON [employer] Work Phone: [phone] Hospital Discharge instructions Patient Education 01/28/2022 15:31:24 [...] fried and sweet foods. General instructions Take nkdw-gql-ggbufeh and prescription medicines only as told by [...] 05/30/2010 Document Revised: 11/24/2019 Document Reviewed: 08/19/2018 Inform Direct Patient Education 2020 [employer]. Follow Up Care 01/22/2022 09:30:25 With:KATHE CLARK, Isauro More, URL Address: [address] [place] [address]- When:3 months [facility] 06-08-2022 Chief complaint Narrative - Reported* An [...] canceled 12/2021 related to blood thinners / NM with stent placement. NZ[facility]Qzlhiwx[facility]Kwnw[facility] [place] Work Phone: 1([phone]) 285-586505-25-2022 History of Present illness Narrative* stent placed and predictive maintenance technician didn't want to take her off Plavix [...] back back found spine 02/06/22 first appt. predictive maintenance technician said she had stent and can have [...] - Thrombophilia - CHF - Pacemaker - NM/Stent Placed - Frequent Falls (Last couple weeks [...] on Plavix plus Coumadin and statesthat her Dress Marker would not take her off the blood [...] vs HS if tolerates better in AM. VD-Shgiaei[facility]Iswzmyr [facility] [place] Work Phone: 1([phone]) 282-483805-18-2022 History of Present illness Narrative* Nighat Bazzi, [facility] - 01/01/2022 10:40 AM EDT [facility] Med[facility] ANTICOAGULATION Referring Provider: Yoli GOAL [...] with pharmacist as referred by his/her physician. Anna hernia surgery cancelled due to recent stent placement on 11/12/21 - inability to stop Plavixprior to procedure. Earliest stop date is 02/12/22 but preferable after 05/15/22 if possible (per cardiology note). For Pharmacy Admin Tracking Only Intervention Detail: Adherence Monitorin Total # of Interventions Recommended: 1 Total # of Interventions Accepted: 1 Time Spent (min): 20 Nighat Bazzi RPH documented in this encounterKindred HealthcareEverTune Phone: [phone] Hospital Discharge instructions* Patient Instructions* Nighat Bazzi [...] to your next appointment. documented in this [facility] Phone: [phone]) 181-854105-16-2022 Miscellaneous Notes* Telephone Encounter - Tatiana Juarez [...] in your lumbar spine documented in this encounterUniversity Hospitals Health System05-16-2022 NoteHNO ID: [id number] Author: RT Nikkie(R) Service: Radiology Author Type: Welder Operator Type: Progress Notes Filed: 12/30/2021 9:48 AM [...] BY: RT Nikkie(R) December 30, 2021 9:47 AMTooele Valley HospitalAvfduxcg39-85-2024 Miscellaneous Notes* Allied Health - RT Caitie(R) [...] in your lumbar spine documented in this encounterUniversity Hospitals Health System05-16-2022 History of Present illness Narrative* RT Nikkie(R) [...] 30, 2021 9:47 AM documented in this encounterUniversity Hospitals Health System05-16-2022 History of Present illness Narrative* Ana Maria Jacob Urbano, DO - 12/30/2021 8:49 AM EDT SPINE CARE [...] supervised home exercise program (HEP): No 4. Manager Research Development: Yes Passive conservative therapy in the last [...] Coronary atherosclerosis of unspecified type of vessel, [place] or graft s/p stents x 2 to [...] has IVC filter placed PE (pulmonary thromboembolism) ([facility]) and DVT's 2007 s/p IVC filter 2008 Retroperitoneal hemorrhage Unspecified hypothyroidism PAST SURGICAL HISTORY Procedure Laterality Date ARTHROSCOPIC PATELLECTOMY/CAROL Right ARTHROSCOPY KNEE DIAGNOSTIC W/WO SYNOVIAL BX SPX Right 2014 Arthroscopy, knee ARTHRP KNE CONDYLE&PLATU MEDIAL&LAT COMPARTMENTS Right 2013 Knee replacement, total CHOLECYSTECTOMY MAST MODF RAD W/AX LYMPH NOD W/WO PECT/DESTINY MIN 1989,1991 bilateral MIDLINE INSERTION/CONSULT 06/20/2018 PAST [...] ALLERGIES Allergen Reactions Acetaminophen-Codei* Unknown, GI Upset Beaver Other: See Comments welyassine Gold Au 198 Intolerance itching Nickel Other: See Comments Seasonal Allergies Other: See Comments Latex Rash CURRENT MEDICATIONS: celecoxib (CELEBREX) 200 mg capsule Take 200 mg by mouth. clopidogrel (PLAVIX) 75 mg tablet Take 1 tablet by mouth once daily. warfarin (COUMADIN) 5 mg tablet Take 5 mg by mouth. abzcaggsbey-buvwumqof-ikfqsazi (TRELEGY ELLIPTA) 100-62.5-25 mcg Inhale 1 Puff [...] IVC filter at the L4 level. Marked athe rosclerotic calcifications in the abdominal aorta. Partially visualized [...] which included preparing to see the patient, pfps-xe-arcm patient care, completing clinical documentation, obtaining and/or [...] diagnosis and treatment plan. documented in this encounterUniversity Hospitals Health System05-09-2022 Hospital Discharge instructions Patient Education 12/23/2021 14:53:25 [...] nerve stimulation). For women, using a medical assistant prn to prevent urine leaks. This is a [...] right after experiencing incontinence. General instructions Take bnlw-qdz-cvyxshc and prescription medicines only as told by [...] 09/10/2005 Document Revised: 08/13/2018 Document Reviewed: 11/12/2017 Inform Direct Patient Education 2020 [employer]. Follow Up Care 11/20/2021 13:31:41 With:KATHE CLARK, Isauro W, URL Address: [address] [place] [address]- When: Unknown [facility] [id number] History of Present illness Narrative* Sakina Chau - 12/02/2021 1:48 PM EDT PT ASSESSMENT - CASTING ROOM Leyla presents for Application of brace. Applied knee support to Right knee Patient has been instructed in Care and proper application of brace.. Sakina Chau Beeper: documented in this encounterUniversity Hospitals Health System04-13-2022 History of Present illness Narrative* Nguyễn Jean MD - 11/27/2021 12:55 PM EDT Nguyễn Jean [address] [facility] [place] [address] Leyla Lambert is a 81 year old [...] the Assessment and Plan. documented in this encounterUniversity Hospitals Health System04-13-2022 History of Present illness Narrative* Manny Gillespie RT(R) - 11/27/2021 11:25 AM EDT Radiology [...] 27, 2021 11:36 AM documented in this encounterUniversity Hospitals Health System04-11-2022 History of Present illness Narrative* Shy Osuna, [facility] - 11/25/2021 10:40 AM EDT [facility] Medication Management ANTICOAGULATION Referring Provider: Dr Moore GOAL INR: 2.0-3.0 TODAY'S INR: 2.7 WARFARIN Dosage: In [place] increased warfarin to whole 5 mg tablet [...] by his/her physician. Patient just returned from [place]. While in [place] she had a stent placed and started Plavix and stopped Aspirin. Patient started Celebrex for knee pain and follows up with orthopedic surgeon on Thu11-27-21. Patient is supposed to have hernia surgery on December 17 at [facility] with no Lovenox bridge per Dr Moore. For Pharmacy Admin Tracking Only Intervention Detail: Adherence Monitorin, Dose Adjustment: 1, reason: Therapy Optimization and New Rx: 3, reason: Needs Additional Therapy Total # of Interventions Recommended: 4 Total # of Interventions Accepted: 4 Time Spent (min): 30 Shy Osuna RPH, PharmD documented in this Mama Phone: [phone] Hospital Discharge instructions* Patient Instructions* Shy Osuna RPH - 11/25/2021 10:40 AM EDT Continue to monitor urine and stool. Continue to monitor for signs of bleeding. Return to clinic in2 weeks. Continue warfarin whole 5 mg tablet Thu,Thu and 1.5 tablets for 7.5mg all other days. documented in this Mama Phone: [phone]) 229-989412-11-2021 NoteHNO ID: [id number] Author: Interface Note Service: ? Author Type: ? Type: Progress Notes Filed: 07/27/2021 2:53 AM Note Text: Epic Scheduled Downtime: 07/27/2021 1:00:00 AM to 07/27/2021 2:38:59 AMTooele Valley HospitalXemqmfvv54-64-1922 History of Present illness Narrative* Shy Osuna RPH - 07/08/2021 11:30 AM EST [facility] Medication Management ANTICOAGULATION Referring Provider: Dr Moore GOAL INR: 2.0-3.0 TODAY'S INR: 1.9 WARFARIN Dosage: Continue warfarin 1.5 tablets for 7.5mg MWF and whole 5 mg tablet all other days. Hold 5 days prior to hernia surgery. INR (no units) Date Value 05/09/2021 1.6 03/19/2021 2.4 02/20/2021 2.6 01/28/2021 3.3 12/17/2020 3.6 07/11/2020 1.6 06/25/2020 1.4 Medication changes: Losartan and sotalol stopped at [facility] Started amlodipine On antibiotic for knee infection [...] has hernia surgery scheduled for 07-23-21 at [facility]. Patient has a cyst in her left [...] Shy Osuna RPH, PharmD documented in this Mama Phone: 1([phone]) 777-963311-22-2021 Hospital Discharge instructions* Patient Instructions* Shy Osuna RPH - 07/08/2021 11:30 AM EST Continue to monitor urine and stool. Continue to monitor for signs of bleeding. Return to clinic in4 weeks. Continue warfarin 1.5 tablets for 7.5mg MWF and whole 5 mg tablet all other days. Hold 5 days prior to hernia surgery. documented in this Mama Phone: 1([phone]) 200-936111-18-2021 History of Present illness Narrative* George Dyer, [...] 04, 2021 10:21 AM documented in this encounterUniversity Hospitals Health System11-01-2021 History of Past illness Narrative* ProblemNoted DateResolved KwexJpalqwtbpsrcq70/01/202111/10/2020 Supratherapeutic INR06/10/20200817/1documented as of this encounter (statuses as of 12/02/2021) [facility] History of Past illness Narrative* ProblemNoted Date Resolved XinwIhaalgkdylqkj82/01/202111/upratherapeutic INR06/10/2021 1documented as of this encounter (statuses as of 12/09/2021) [facility] History of Past illness Narrative* ProblemNoted Date Resolved NdscSqzubddndwfoq80/01/202111//upratherapeutic INR06/10/2021 1documented as of this encounter (statuses as of 12/30/2021) [facility] History of Past illness Narrative* ProblemNoted Date Resolved QkhpGptasuvlyxcid74/01/202111/upratherapeutic INR06/10/2021 1documented as of this encounter (statuses as of 12/30/2021) [facility] History of Past illness Narrative* ProblemNoted Date Resolved BdoyCppgmlhapfzmi96/01/202111/upratherapeutic INR06/10/2021 1documented as of this encounter (statuses as of 12/31/2021) [facility] History of Past illness Narrative* ProblemNoted Date Resolved QtekNhhfplvaxwxxe75/01/202111//upratherapeutic INR06/10/2021 1documented as of this encounter (statuses as of 12/31/2021) [facility] History of Past illness Narrative* ProblemNoted Date Resolved ZzqzHmakfnbvjhymq18/01/202111/upratherapeutic INR06/10/2021 1documented as of this encounter (statuses as of 02/06/2022) [facility] History of Past illness Narrative* ProblemNoted Date Resolved IzanLqhxxoektfplp92/01/202111/upratherapeutic INR06/10/2021 1documented as of this encounter (statuses as of 02/10/2022) [facility] History of Past illness Narrative* ProblemNoted Date Resolved RkttYahasrppmzltb93/01/202111/upratherapeutic INR06/10/2021 1documented as of this encounter (statuses as of 04/24/2022) [facility] History of Past illness Narrative* ProblemNoted Date Resolved FdupKtqjsmrqyrkjr51/01/202111//upratherapeutic INR101documented as of this encounter (statuses as of 04/25/2022) [facility] History of Past illness Narrative* ProblemNoted Date Resolved TjfwMklvrdoaxxxbf41/01/202111/upratherapeutic INR06/10/2021 1documented as of this encounter (statuses as of 04/28/2022) [facility] History of Past illness Narrative* ProblemNoted Date Resolved PrapQuvbfsbmjockl52/01/202111/upratherapeutic INR06/10/2021 1documented as of this encounter (statuses as of 04/29/2022) [facility] History of Past illness Narrative* ProblemNoted Date Resolved UztbFcaqvwqekszss42/01/202111/upratherapeutic INR06/10/2021 1documented as of this encounter (statuses as of 04/30/2022) [facility] History of Past illness Narrative* ProblemNoted Date Resolved AalnOaokzurlnivqc12/01/202111/upratherapeutic INR06/10/2021 1documented as of this encounter (statuses as of 04/30/2022) [facility] History of Past illness Narrative* ProblemNoted Date Resolved SxkdXyriarsmxovji67/01/202111/upratherapeutic INR06/10/2021 1documented as of this encounter (statuses as of 04/30/2022) [facility] History of Past illness Narrative* ProblemNoted Date Resolved BeniHxqsyuvodcilk10/01/202111/upratherapeutic INR06/10/2021 1documented as of this encounter (statuses as of 05/05/2022) [facility] History of Past illness Narrative* ProblemNoted Date Resolved LgkcFkaqjzjkyootg82/01/202111/upratherapeutic INR101documented as of this encounter (statuses as of 05/08/2022) [facility] History of Past illness Narrative* ProblemNoted Date Resolved QashWavorbtbouqww32/01/202111/upratherapeutic INR06/10/2021 1documented as of this encounter (statuses as of 05/09/2022) [facility] History of Past illness Narrative* ProblemNoted Date Resolved ZrepXmozqjyfzewzq91/01/202111/upratherapeutic INR06/10/2021 1documented as of this encounter (statuses as of 05/19/2022) [facility] History of Past illness Narrative* ProblemNoted Date Resolved MvjkIliwhisfvrcfj37/01/202111/upratherapeutic INR06/10/2021 1documented as of this encounter (statuses as of 05/22/2022) [facility] History of Past illness Narrative* ProblemNoted Date Resolved NfcsHgsctwnjevwdn55/01/202111/upratherapeutic INR06/10/2021 1documented as of this encounter (statuses as of 05/22/2022) [facility] History of Past illness Narrative* ProblemNoted Date Resolved WfcgZfojwrmksggta52/01/202111/upratherapeutic INR06/10/2021 1documented as of this encounter (statuses as of 06/03/2022) [facility] History of Past illness Narrative* ProblemNoted Date Resolved OpccVrprncfofdvfj98/01/202111/upratherapeutic INR06/10/2021 1documented as of this encounter (statuses as of 06/04/2022) [facility] History of Past illness Narrative* ProblemNoted Date Resolved ZcunXmxalragonthq12/01/202111/upratherapeutic INR06/10/2021 1documented as of this encounter (statuses as of 07/02/2022) [facility] History of Past illness Narrative* ProblemNoted Date Resolved NgxpEepcmlbntxyxt76/01/202111/upratherapeutic INR06/10/2021 1documented as of this encounter (statuses as of 07/22/2022) [facility] History of Past illness Narrative* ProblemNoted Date Resolved ZcucMckxkqfuwdasz98/01/202111/upratherapeutic INR06/10/2021 1documented as of this encounter (statuses as of 12/10/2022) [facility] History of Present illness Narrative* Ms Lambert [...] on possible surgery called states infected 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 * Pattern Classification does not constitute a diagnosis. It may be * invalid if the patient has had prior related surgeries. * Impedance * Distal Baseline Pmefwyoyl964 ohms * Complete Transit (Liquid: 10 swallows)40.0 [...] was * abnormal with premature pharyngeal entry. [facility] Work Phone: 1(632) 854-800209-23-2021 History of Present illness Narrative* Shy Osuna RPH - 05/09/2021 11:00 AM EDT [facility] ANTICOAGULATION Referring Provider: Dr Moore [...] 05-01-21. [place] new P[place]. For Pharmacy Admin Tracking Only Intervention Detail: Adherence Monitorin, Dose Adjustment: 1, reason: Therapy Optimization and New Rx: 1, reason: Patient Preference Total # of Interventions Recommended: 2 Total # of Interventions Accepted: 2 Time Spent (min): 30 Shy Osuna RPH, PharmD documented in this [facility] Work Phone: [phone]) 346-631909-23-2021 Hospital Discharge instructions* Patient Instructions* Shy Osuna RPH - 05/09/2021 11:00 AM EDT Continue to monitor urine and stool. Continue to monitor for signs of bleeding. Return to clinic in4 weeks. Take 1.5 tablets for 7.5 mg today then continue warfarin 1.5 tablets for 7.5mg MWF and whole 5 mg tablet all other days. [facility] Phone: 1(666) 409-338108-03-2021 History of Present illness Narrative* Shy Osuna RPH - 03/19/2021 10:30 AM EDT [facility] ANTICOAGULATION Referring Provider: Dr Moore [...] Shy Osuna RPH, PharmD documented in this [facility] Phone: 1(265) 594-628708-03-2021 Hospital Discharge instructions* Patient Instructions* Shy Osuna RPH - 03/19/2021 10:30 AM EDT Continue to monitor urine and stool. Continue to monitor for signs of bleeding. Return to clinic in6 weeks. Continue warfarin 1.5 tablets for 7.5mg MWF and whole 5mg tablet all other days. [facility] Phone: [phone]) [phone] History of Present illness Narrative* Henna Bravo RPH - 02/20/2021 11:00 AM EDT [facility] ANTICOAGULATION Referring Provider: Dr Moore [...] Bravo R.Ph., 02/20/2021,11:32 AM [facility] Phone: [phone] 215-598307-07-2021 Hospital Discharge instructions* Patient Instructions* Henna Bravo RPH - 02/20/2021 11:00 AM EDT Continue taking 7.5mg (1 1/2 tablets) on Thursday, Thursday and Thursday and 5mg (1 tablet) all other days. Continue to monitor for signs of bleeding. Return to coumadin clinic in 4 weeks. [facility]: [phone] History of Present illness Narrative* Nighat Bazzi RP - 01/28/2021 11:00 AM EDT [facility] ANTICOAGULATION Referring Provider: Yoli GOAL INR: 2-3 TODAY'S INR: 3.3 WARFARIN Dosage: Patient will decrease warfarin to 7.5 mg every MW; 5 mg all other days. Patient will [...] an esophageal study/test scheduled on 01/30/21 at [facility]. Will recheck INR in 3 weeks. Patient [...] 30 Nighat Bazzi RPH documented [facility] Phone: [phone] Hospital Discharge instructions* Patient Instructions* Nighat Bazzi [...] of any medication changes. documented [facility] this [facility] Phone: [phone]) 460-614705-19-2021 History of Present illness Narrative* Reason for visit: * LEYLA LAMBERT patient presents since last being seen 01/02/21. [facility] Work Phone: [phone] History of Present illness Narrative* Reason for visit: * LEYLA LAMBERT patient presents since last being seen 01/02/21. * On x2 PPI for reflux * Seeing a surgeon for reflux soon * Continued rhinorrea * worse with meals * bilaterally * worse with valsalva GL-Tzhaxwdlxtrkde-Xahuxwrg Work Phone: [phone]) 242-668905-19-2021 History of Present illness Narrative* Reason for [...] intranasal medical therapy have improved her drainage. HG-Zyqmcqruzykmiy-Tfximgzw Work Phone: [phone] 422-774705-03-2021 History of Present illness Narrative* Shy Osuna RPH - 12/17/2020 10:30 AM EDT [facility] ANTICOAGULATION Referring Provider: Yoli GOAL INR: 2-3 TODAY'S INR: 3.6 WARFARIN [...] by his/her physician. Patient has been in [place] and had warfarin dosed there. Patient states she had a hard time staying in range while in [place]. Patient was taking warfarin 5 mg M,F [...] 30 Shy Osuna PharmD documented in this [facility] Referrals Work Phone: [phone] 270-689905-03-2021 Hospital Discharge instructions* Patient Instructions* Shy Osuna [facility] - 12/17/2020 10:30 AM EDT Continue to monitor urine and stool. Continue to monitor for signs of bleeding. Return to clinic in3 weeks. Hold warfarin today then decrease to warfarin whole 5 mg tablet every MWF and 1.5 tablets for 7.5mg all other days. [facility] Phone: [phone]) 500-106804-30-2021 History of Present illness Narrative* Tatiana Griffiths [...] IV DATA: Not applicable SIGNED BY: RT Timo(R) December 14, 2020 12:32 PM [facility] History of Present illness Narrative* Reason for [...] is not currently using intranasal medical therapy. EM-Mwhkwrkrqxubdx-Jqkqohor Work Phone: [phone]) [phone] History of Present illness Narrative* LEYLA LAMBERT [...] Denies other drug use. * FHx: reviewed. [facility] Work Phone: [phone]) 768-180908-13-2020 History of Present illness Narrative* Tomas Robertson [...] IV DATA: Not applicable SIGNED BY: Td ROSS (Stephanie) March 29, 2020 8:53 AM documented in this [facility] History of Present illness Narrative* LEYLA LAMBERT [...] Denies other drug use. * FHx: reviewed. JJ-Xqhnzpgieqtxqt-Sbpxnss [facility] Work Phone: [phone] History of Present illness Narrative* LEYLA LAMBERT [...] Denies other drug use. * FHx: reviewed. EF-Qhtvuyxukeurrc-Tsmrpcp [facility] Work Phone: [phone] History of Present illness Narrative* LEYLA LAMBERT [...] Water consumption: [] * FHx: reviewed. Includes: TJ-Oc[facility]gcgyn[facility] Work Phone: [phone] History of Present illness Narrative* LEYLA LAMBERT [...] Water consumption: [] * FHx: reviewed. Includes: KX-Jwfgoerrfxluxu-Cpbmtkyp Work Phone: Evaluation + Plan note No data available for this section [facility] Evaluation + Plan note Future Appointments Appointment Date:04/14/2022 01:30:00 PM Scheduled Provider:Isauro ARCHULETA MD Location:[facility] Appointment Type:URO Office Visit [facility] Evaluation + Plan note Future Appointments Appointment Date:12/01/2022 02:15:00 PM Scheduled Provider:Isauro ARCHULETA MD Location:[facility] Appointment Type:URO Office Visit [facility] Evaluation + Plan note Future Appointments Appointment Date:02/02/2023 02:45:00 PM Scheduled Provider:Isauro ARCHULETA MD Location:[facility] Appointment Type:URO Office Visit [facility] evaluation + Plan note Future Appointments Appointment Date:01/28/2024 03:00:00 PM Scheduled Provider:Lou Lacy MD Location:[facility] Appointment Type:URO Office Visit [facility] evaluation note* 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 History of pulmonary embolus (PE) Personal history of pulmonary embolism documented in this encounter [facility] Home Phone: evalazmtsq note* Diagnosis 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- Primary History of pulmonary embolus (PE) Personal history of pulmonary embolism 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 documented in this encounter [facility] Home Phone: [email or web address] note* Diagnosis 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- Primary Coronary artery disease, unspecified vessel or lesion type, unspecified whether angina present, unspecified whether [place] or transplanted heart History of pulmonary embolus (PE) Personal history of pulmonary embolism 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 documented in this encounter [facility] Home Phone: evallnlsmm note* Diagnosis 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- Primary History of pulmonary embolus (PE) Personal history of pulmonary embolism 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 documented in this encounter [employer] Home Phone: evaluation note* Diagnosis 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- Primary History of pulmonary embolus (PE) Personal history of pulmonary embolism 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 documented in this encounter [employer] Home Phone: evaluation noteNo assessment information available [facility] Diagnosis 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- Primary History of pulmonary embolus (PE) Personal history of pulmonary embolism 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 documented in this encounter [employer] Home Phone: evaluation note* Diagnosis Acute pain of right knee- Primary [facility]* 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 documented in this encounter [facility] note* Diagnosis Spinal stenosis of lumbar region, unspecified whether neurogenic claudication present- Primary Lumbar radiculopathy, chronic Thoracic or lumbosacral neuritis or radiculitis, unspecified Pain in left wrist Pain in joint, forearm [facility]* Diagnosis Spinal stenosis of lumbar region, unspecified whether neurogenic claudication present Lumbar radiculopathy, chronic Thoracic or lumbosacral neuritis or radiculitis, unspecified Pain in left wrist Pain in joint, forearm [facility]* Diagnosis Spinal stenosis of lumbar region with neurogenic claudication Spinal stenosis, lumbar region, with neurogenic claudication [facility] this [facility]* Diagnosis 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- Primary History of pulmonary embolus (PE) Personal history of pulmonary embolism 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 documented in this encounter [employer] Home Phone: evaluation note* 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- Primary History of pulmonary embolus (PE) Personal history of pulmonary embolism 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 documented in this encounter [employer] Phone: evaluation note* Diagnosis Spinal stenosis of lumbar region, unspecified whether neurogenic claudication present Lumbar radiculopathy, chronic Thoracic or lumbosacral neuritis or radiculitis, unspecified [facility] Diagnosis Knee pain, unspecified chronicity, unspecified laterality- Primary [facility]* 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- Primary History of pulmonary embolus (PE) Personal history of pulmonary embolism 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 documented in this encounter [employer] Phone: evaluation note* Diagnosis 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- Primary History of pulmonary embolus (PE) Personal history of pulmonary embolism 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 documented in this encounter [employer] Phone: evaltezgip note* Diagnosis Unstable angina (HCC)- Primary Intermediate coronary syndrome PAF (paroxysmal atrial fibrillation) (HCC) Atrial fibrillation Essential hypertension Unspecified essential hypertension CAD (coronary artery disease) Coronary atherosclerosis of unspecified type of vessel, [place] or graft Chronic kidney disease Chronic kidney disease, unspecified Cellulitis of leg, right Cellulitis and abscess of leg, except foot documented in this encounter [employer] Phone: [email or web address] note* Diagnosis Preop examination Preoperative examination, unspecified Infection associated with internal right knee prosthesis, subsequent encounter Iron deficiency anemia, unspecified iron deficiency anemia type Infection associated with internal right knee prosthesis, subsequent encounter [facility] Diagnosis Iron deficiency anemia, unspecified iron deficiency anemia type- Primary Infection associated with internal right knee prosthesis, subsequent encounter [facility]* Diagnosis S/P revision of total knee, 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, subsequent encounter [facility]* Diagnosis Iron deficiency anemia, unspecified iron deficiency anemia type- Primary Infection associated with internal right knee prosthesis, subsequent encounter [facility]* Diagnosis Infection of prosthetic joint, subsequent encounter- Primary [facility]* 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- Primary History of pulmonary embolus (PE) Personal history of pulmonary embolism 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 documented in this encounter [employer] Phone: evaladveed note* 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 documented in this encounter [facility] note* Diagnosis S/P revision of total knee, right- Primary documented in this encounter [facility] note* Diagnosis 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- Primary History of pulmonary embolus (PE) Personal history of pulmonary embolism 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 documented in this encounter [employer] Phone: evalqieutn note* Diagnosis Numbness and tingling of right leg- Primary Disturbance of skin sensation Status post revision of total replacement of right knee documented in this encounter [facility] note* Diagnosis History of DVT (deep vein thrombosis) Personal history of venous thrombosis and embolism Pain of left calf documented in this encounter [employer] Phone: evalkavwjd note* Diagnosis 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- Primary History of pulmonary embolus (PE) Personal history of pulmonary embolism 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 documented in this encounter [employer] Phone: evalswschd note* 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 documented in this encounter [facility] note* Diagnosis 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- Primary Coronary artery disease, unspecified vessel or lesion type, unspecified whether angina present, unspecified whether [place] or transplanted heart History of pulmonary embolus (PE) Personal history of pulmonary embolism 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 documented in this encounter [employer] Phone: evaleqzmto note* Diagnosis Skin tear of left elbow without complication, initial encounter- Primary documented in this encounter [employer] note* Diagnosis 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- Primary Coronary artery disease, unspecified vessel or lesion type, unspecified whether angina present, unspecified whether [place] or transplanted heart History of pulmonary embolus (PE) Personal history of pulmonary embolism 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 documented in this encounter [employer] note* Diagnosis Pain Generalized pain documented in this encounter [facility] note* Diagnosis Acute pain of left knee documented in this encounter [facility] note* Diagnosis History of chest pain Personal history of other specified diseases ASHD (arteriosclerotic heart disease) Coronary atherosclerosis of unspecified type of vessel, [place] or graft S/P angioplasty with stent Postsurgical [...] Unspecified essential hypertension [facility]* Diagnosis Preop examination- Primary Preoperative examination, unspecified Infection associated with internal right knee prosthesis, subsequent encounter Atrial fibrillation, unspecified type (HCC) Atherosclerosis of [place] coronary artery of [place] heart without angina pectoris History of DVT (deep vein thrombosis) Personal history of venous thrombosis and embolism Essential hypertension, benign COPD, group D, by GOLD 2017 classification ([facility]) Acquired hypothyroidism Unspecified hypothyroidism Malignant neoplasm of [...] total knee, left documented in this encounter [facility] note* Diagnosis Preop examination- Primary Preoperative examination, unspecified Infection associated with internal right knee prosthesis, subsequent encounter Atrial fibrillation, unspecified type (HCC) Atherosclerosis of [place] coronary artery of [place] heart without angina pectoris History of DVT (deep vein thrombosis) Personal history of venous thrombosis and embolism Essential hypertension, benign COPD, group D, by GOLD 2017 classification ([facility]) Acquired hypothyroidism Unspecified hypothyroidism Malignant neoplasm of [...] prosthesis, subsequent encounter [facility] Diagnosis Preop examination- Primary Preoperative examination, unspecified Infection associated with internal right knee prosthesis, subsequent encounter Atrial fibrillation, unspecified type (HCC) Atherosclerosis of [place] coronary artery of [place] heart without angina pectoris History of DVT (deep vein thrombosis) Personal history of venous thrombosis and embolism Essential hypertension, benign COPD, group D, by GOLD 2017 classification ([facility]) Acquired hypothyroidism Unspecified hypothyroidism Malignant neoplasm of [...] prosthesis, subsequent encounter [facility]* Diagnosis 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 Preop examination- Primary Preoperative examination, unspecified Infection associated with internal right knee prosthesis, subsequent encounter Atrial fibrillation, unspecified type (HCC) Atherosclerosis of [place] coronary artery of [place] heart without angina pectoris History of DVT (deep vein thrombosis) Personal history of venous thrombosis and embolism Essential hypertension, benign COPD, group D, by GOLD 2017 classification ([facility]) Acquired hypothyroidism Unspecified hypothyroidism Malignant neoplasm of [...] specified intestinal malabsorption [facility] Diagnosis S/P revision of total knee, right Preop examination- Primary Preoperative examination, unspecified Infection associated with internal right knee prosthesis, subsequent encounter Atrial fibrillation, unspecified type (HCC) Atherosclerosis of [place] coronary artery of [place] heart without angina pectoris History of DVT (deep vein thrombosis) Personal history of venous thrombosis and embolism Essential hypertension, benign COPD, group D, by GOLD 2017 classification (HCC) Acquired hypothyroidism Unspecified hypothyroidism Malignant neoplasm of [...] specified intestinal malabsorption [facility] Rash and other nonspecific skin eruption- Primary [facility] Diagnosis Dysphagia, unspecified type- Primary Achalasia of cardia Achalasia and cardiospasm documented in this encounter [facility] Work Phone: Evaluation note* Diagnosis Dissection of thoracoabdominal aorta (CMS/HCC)- Primary Essential hypertension, benign (CMS/HCC) Essential hypertension, benign CAD in [place] artery (CMS/HCC) Chronic obstructive pulmonary disease, unspecified [...] Chronic rhinosinusitis Unspecified sinusitis (chronic) Adult hypothyroidism ([facility]/HCC) Unspecified hypothyroidism MDD (major depressive disorder), recurrent episode, moderate ([facility]) Orthostatic hypotension Severe protein-calorie malnutrition ([facility]/HCC) Other severe protein-calorie malnutrition Chronic heart failure with preserved ejection fraction (HFpEF) ([facility]) CAD in [place] artery ([facility]) Paroxysmal atrial fibrillation ([facility]) Atrial fibrillation Immunodeficiency due to conditions classified elsewhere ([facility]) Thoracic aortic aneurysm, without rupture, unspecified ([facility]) Severe protein-calorie malnutrition ([facility])- Primary Other severe protein-calorie malnutrition Diarrhea, unspecified type Lumbar spondylosis Lumbosacral spondylosis without myelopathy Dysphasia Other speech disturbance Allergic reaction to drug, subsequent encounter- Primary Encounter for removal of sutures documented in this encounter [facility]* Diagnosis Dissection of thoracoabdominal aorta ([facility])- Primary Essential hypertension, benign ([facility]) Essential hypertension, benign CAD in [place] artery ([facility]) Chronic obstructive pulmonary disease, unspecified COPD type ([facility]) Esophageal stricture Stricture and stenosis of esophagus Dysphasia Other speech disturbance Failure to thrive in adult- Primary Adult failure to thrive Penetrating ulcer of aorta ([facility]) Chronic obstructive pulmonary disease, unspecified COPD type ([facility]) Dysphasia Other speech disturbance Failure to thrive in adult- Primary Adult failure to thrive Orthostatic hypotension Dysphasia Other speech disturbance Chronic rhinosinusitis Unspecified sinusitis (chronic) MDD (major depressive disorder), recurrent episode, moderate ([facility]) COPD, mild ([facility]/HCC) Adult hypothyroidism ([facility]) Unspecified hypothyroidism Lumbar spondylosis- Primary Lumbosacral spondylosis without myelopathy Chronic obstructive pulmonary disease, unspecified COPD type ([facility]/HCC) Chronic rhinosinusitis Unspecified sinusitis (chronic) Adult hypothyroidism ([facility]/HCC) Unspecified hypothyroidism MDD (major depressive disorder), recurrent episode, moderate ([facility]) Orthostatic hypotension Severe protein-calorie malnutrition ([facility]/HCC) Other severe protein-calorie malnutrition Chronic heart failure with preserved ejection fraction (HFpEF) ([facility]) CAD in [place] artery ([facility]) Paroxysmal atrial fibrillation ([facility]) Atrial fibrillation Immunodeficiency due to conditions classified elsewhere ([facility]) Thoracic aortic aneurysm, without rupture, unspecified ([facility]) Severe protein-calorie malnutrition (CMS/HCC)- Primary Other severe protein-calorie malnutrition Diarrhea, unspecified type Lumbar spondylosis Lumbosacral spondylosis without myelopathy Dysphasia Other speech disturbance Vertigo- Primary Dizziness and giddiness Restless leg syndrome Restless legs syndrome (RLS) documented in this encounter [facility]* Diagnosis Lightheaded Dizziness and giddiness Dizziness Dizziness and giddiness SOB (shortness of breath) Shortness of breath Chest discomfort Other chest pain Dissection of aorta, unspecified portion of aorta ([facility]) ASHD (arteriosclerotic heart disease) Coronary atherosclerosis of unspecified type of vessel, [place] or graft S/P angioplasty with stent Postsurgical percutaneous transluminal coronary angioplasty status Chronic anticoagulation Encounter for long-term (current) 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s Dysautonomia orthostatic hypotension 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 Chronic diastolic congestive heart failure ([facility]) Chronic diastolic heart failure History of DVT (deep vein thrombosis) Personal history of venous thrombosis and embolism Cardiac pacemaker in situ Essential hypertension Unspecified essential hypertension History of chest pain Personal history of other specified diseases PAF (paroxysmal atrial fibrillation) ([facility]) Atrial fibrillation [facility] Bariatric surgery status Preoperative clearance Unspecified pre-operative examination Gastroesophageal reflux disease, unspecified whether esophagitis present documented in this encounter [facility] Work Phone: Evaluation note* Diagnosis Dysphagia, unspecified type Gastroesophageal reflux disease, unspecified whether esophagitis present Lightheadedness Dizziness and giddiness Status post insertion of percutaneous endoscopic gastrostomy (PEG) tube ([facility]) Dysphagia, unspecified type documented in this encounter [facility] Work Phone: Evaluation note* Diagnosis 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 Dysphagia, unspecified type documented in this encounter [facility] Work Phone: Evaluation note* Diagnosis Severe protein-calorie malnutrition (CMS/HCC)- Primary Other severe protein-calorie malnutrition Diarrhea, unspecified type Lumbar spondylosis Lumbosacral spondylosis without myelopathy Dysphasia Other speech disturbance documented in this encounter [facility]* Diagnosis Dissection of thoracoabdominal aorta (CMS/HCC)- Primary Essential hypertension, benign (CMS/HCC) Essential hypertension, benign CAD in [place] artery (CMS/HCC) Chronic obstructive pulmonary disease, unspecified [...] preserved ejection fraction (HFpEF) (CMS/HCC) CAD in [place] artery (CMS/HCC) Paroxysmal atrial fibrillation (CMS/HCC) Atrial fibrillation Immunodeficiency due to conditions classified elsewhere (CMS/HCC) Thoracic aortic aneurysm, without rupture, unspecified (CMS/HCC) Severe protein-calorie malnutrition (CMS/HCC)- Primary Other severe protein-calorie malnutrition Diarrhea, unspecified type Lumbar spondylosis Lumbosacral spondylosis without myelopathy Dysphasia Other speech disturbance Primary osteoarthritis of both knees documented in this encounter [facility]* Diagnosis Intramural hematoma of [...] pulmonale present (CMS-HCC) [facility] Diagnosis Dissection of thoracoabdominal aorta (CMS/HCC)- Primary Essential hypertension, benign (CMS/HCC) Essential hypertension, benign CAD in [place] artery (CMS/HCC) Chronic obstructive pulmonary disease, unspecified [...] moderate (CMS/HCC) COPD, mild (CMS/HCC) Adult hypothyroidism ([facility]/HCC) Unspecified hypothyroidism Lumbar spondylosis- Primary Lumbosacral spondylosis without myelopathy Chronic obstructive pulmonary disease, unspecified COPD type (CMS/HCC) Chronic rhinosinusitis Unspecified sinusitis (chronic) Adult hypothyroidism ([facility]/HCC) Unspecified hypothyroidism MDD (major depressive disorder), recurrent episode, moderate ([facility]) Orthostatic hypotension Severe protein-calorie malnutrition ([facility]/HCC) Other severe protein-calorie malnutrition Chronic heart failure with preserved ejection fraction (HFpEF) ([facility]) CAD in [place] artery ([facility]/HCC) Paroxysmal atrial fibrillation ([facility]) Atrial fibrillation Immunodeficiency due to conditions classified elsewhere ([facility]) Thoracic aortic aneurysm, without rupture, unspecified ([facility]) Severe protein-calorie malnutrition ([facility]/HCC)- Primary Other severe protein-calorie malnutrition Diarrhea, unspecified type Lumbar spondylosis Lumbosacral spondylosis without myelopathy Dysphasia Other speech disturbance Open wound of left lower leg, subsequent encounter- Primary documented in this encounter [facility]* Diagnosis Dissection of thoracoabdominal aorta ([facility]/HCC)- Primary Essential hypertension, benign ([facility]/HCC) Essential hypertension, benign CAD in [place] artery ([facility]/HCC) Chronic obstructive pulmonary disease, unspecified COPD [...] MDD (major depressive disorder), recurrent episode, moderate ([facility]/HCC) COPD, mild ([facility]/HCC) Adult hypothyroidism ([facility]) Unspecified hypothyroidism Lumbar spondylosis- Primary Lumbosacral spondylosis without myelopathy Chronic obstructive pulmonary disease, unspecified COPD type ([facility]/HCC) Chronic rhinosinusitis Unspecified sinusitis (chronic) Adult hypothyroidism ([facility]/HCC) Unspecified hypothyroidism MDD (major depressive disorder), recurrent episode, moderate ([facility]) Orthostatic hypotension Severe protein-calorie malnutrition ([facility]/HCC) Other severe protein-calorie malnutrition Chronic heart failure with preserved ejection fraction (HFpEF) ([facility]) CAD in [place] artery ([facility]) Paroxysmal atrial fibrillation ([facility]) Atrial fibrillation Immunodeficiency due to conditions classified elsewhere ([facility]) Thoracic aortic aneurysm, without rupture, unspecified ([facility]) Severe protein-calorie malnutrition ([facility])- Primary Other severe protein-calorie malnutrition Diarrhea, unspecified type Lumbar spondylosis Lumbosacral spondylosis without myelopathy Dysphasia Other speech disturbance Open wound of left lower leg, subsequent encounter- Primary CAD in [place] artery ([facility]) documented in this encounter [facility]* Diagnosis Dissection of thoracoabdominal aorta ([facility])- Primary Essential hypertension, benign ([facility]) Essential hypertension, benign CAD in [place] artery ([facility]) Chronic obstructive pulmonary disease, unspecified COPD type ([facility]) Esophageal stricture Stricture and stenosis of esophagus Dysphasia Other speech disturbance Failure to thrive in adult- Primary Adult failure to thrive Penetrating ulcer of aorta ([facility]) Chronic obstructive pulmonary disease, unspecified COPD type ([facility]) Dysphasia Other speech disturbance Failure to thrive in adult- Primary Adult failure to thrive Orthostatic hypotension Dysphasia Other speech disturbance Chronic rhinosinusitis Unspecified sinusitis (chronic) MDD (major depressive disorder), recurrent episode, moderate ([facility]/HCC) COPD, mild ([facility]/HCC) Adult hypothyroidism ([facility]) Unspecified hypothyroidism Lumbar spondylosis- Primary Lumbosacral spondylosis without myelopathy Chronic obstructive pulmonary disease, unspecified COPD type ([facility]/HCC) Chronic rhinosinusitis Unspecified sinusitis (chronic) Adult hypothyroidism ([facility]) Unspecified hypothyroidism MDD (major depressive disorder), recurrent episode, moderate ([facility]) Orthostatic hypotension Severe protein-calorie malnutrition ([facility]/HCC) Other severe protein-calorie malnutrition Chronic heart failure with preserved ejection fraction (HFpEF) ([facility]) CAD in [place] artery ([facility]) Paroxysmal atrial fibrillation ([facility]) Atrial fibrillation Immunodeficiency due to conditions classified elsewhere ([facility]) Thoracic aortic aneurysm, without rupture, unspecified ([facility]) Severe protein-calorie malnutrition ([facility])- Primary Other severe protein-calorie malnutrition Diarrhea, unspecified type Lumbar spondylosis Lumbosacral spondylosis without myelopathy Dysphasia Other speech disturbance Open wound of left lower leg, subsequent encounter- Primary Medicare annual wellness visit, subsequent- Primary Adult hypothyroidism ([facility]) Unspecified hypothyroidism Encounter for long-term 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 medication Essential hypertension, benign ([facility]) Essential hypertension, benign Prediabetes Other abnormal glucose Open wound of left lower leg, subsequent encounter CAD in [place] artery ([facility]) Restless leg syndrome Restless legs syndrome (RLS) Hiatal hernia with gastroesophageal reflux documented in this encounter [facility]* Diagnosis Dissection of thoracoabdominal aorta ([facility])- Primary Essential hypertension, benign ([facility]) Essential hypertension, benign CAD in [place] artery ([facility]) Chronic obstructive pulmonary disease, unspecified COPD type ([facility]) Esophageal stricture Stricture and stenosis of esophagus Dysphasia Other speech disturbance Failure to thrive in adult- Primary Adult failure to thrive Penetrating ulcer of aorta ([facility]) Chronic obstructive pulmonary disease, unspecified COPD type ([facility]) Dysphasia Other speech disturbance Failure to thrive in adult- Primary Adult failure to thrive Orthostatic hypotension Dysphasia Other speech disturbance Chronic rhinosinusitis Unspecified sinusitis (chronic) MDD (major depressive disorder), recurrent episode, moderate ([facility]) COPD, mild ([facility]) Adult hypothyroidism ([facility]) Unspecified hypothyroidism Lumbar spondylosis- Primary Lumbosacral spondylosis without myelopathy Chronic obstructive pulmonary disease, unspecified COPD type ([facility]) Chronic rhinosinusitis Unspecified sinusitis (chronic) Adult hypothyroidism ([facility]) Unspecified hypothyroidism MDD (major depressive disorder), recurrent episode, moderate ([facility]) Orthostatic hypotension Severe protein-calorie malnutrition ([facility]) Other severe protein-calorie malnutrition Chronic heart failure with preserved ejection fraction (HFpEF) ([facility]) CAD in [place] artery ([facility]) Paroxysmal atrial fibrillation ([facility]) Atrial fibrillation Immunodeficiency due to conditions classified elsewhere ([facility]) Thoracic aortic aneurysm, without rupture, unspecified ([facility]) Severe protein-calorie malnutrition ([facility])- Primary Other severe protein-calorie malnutrition Diarrhea, unspecified type Lumbar spondylosis Lumbosacral spondylosis without myelopathy Dysphasia Other speech disturbance Open wound of left lower leg, subsequent encounter- Primary Medicare annual wellness visit, subsequent- Primary Adult hypothyroidism ([facility]) Unspecified hypothyroidism Encounter for long-term 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 medication Essential hypertension, benign ([facility]) Essential hypertension, benign Prediabetes Other abnormal glucose Open wound of left lower leg, subsequent encounter CAD in [place] artery ([facility]) Restless leg syndrome Restless legs syndrome (RLS) Hiatal hernia with gastroesophageal reflux Orthostatic hypotension- Primary Chest pain, unspecified type SOB (shortness of breath) Shortness of breath documented in this encounter [facility] HealthcareEvaluation note* Diagnosis Intramural hematoma of thoracic aorta ([facility])- Primary Penetrating ulcer of aorta Pulmonary embolism, unspecified chronicity, unspecified pulmonary embolism type, unspecified whether acute cor pulmonale present ([facility]) Dissection of descending thoracic aorta ([facility])- Primary 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, limited to breakdown skin ([facility])- Primary [facility] Diagnosis Dissection of thoracoabdominal aorta ([facility])- Primary Essential hypertension, benign ([facility]) Essential hypertension, benign CAD in [place] artery ([facility]) Chronic obstructive pulmonary disease, unspecified COPD type ([facility]) Esophageal stricture Stricture and stenosis of esophagus Dysphasia Other speech disturbance Failure to thrive in adult- Primary Adult failure to thrive Penetrating ulcer of aorta ([facility]) Chronic obstructive pulmonary disease, unspecified COPD type ([facility]) Dysphasia Other speech disturbance Failure to thrive in adult- Primary Adult failure to thrive Orthostatic hypotension Dysphasia Other speech disturbance Chronic rhinosinusitis Unspecified sinusitis (chronic) MDD (major depressive disorder), recurrent episode, moderate ([facility]) COPD, mild ([facility]) Adult hypothyroidism ([facility]) Unspecified hypothyroidism Lumbar spondylosis- Primary Lumbosacral spondylosis without myelopathy Chronic obstructive pulmonary disease, unspecified COPD type ([facility]/HCC) Chronic rhinosinusitis Unspecified sinusitis (chronic) Adult hypothyroidism ([facility]/HCC) Unspecified hypothyroidism MDD (major depressive disorder), recurrent episode, moderate ([facility]) Orthostatic hypotension Severe protein-calorie malnutrition ([facility]/HCC) Other severe protein-calorie malnutrition Chronic heart failure with preserved ejection fraction (HFpEF) ([facility]) CAD in [place] artery [facility] [facility]) Paroxysmal atrial fibrillation ([facility]) Atrial fibrillation Immunodeficiency due to conditions classified elsewhere ([facility]) Thoracic aortic aneurysm, without rupture, unspecified ([facility]) Severe protein-calorie malnutrition ([facility]/HCC)- Primary Other severe protein-calorie malnutrition Diarrhea, unspecified type Lumbar spondylosis Lumbosacral spondylosis without myelopathy Dysphasia Other speech disturbance Open wound of left lower leg, subsequent encounter- Primary Medicare annual wellness visit, subsequent- Primary Adult hypothyroidism ([facility]) Unspecified hypothyroidism Encounter for long-term 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 medication Essential hypertension, benign ([facility]) Essential hypertension, benign Prediabetes Other abnormal glucose Open wound of left lower leg, subsequent encounter CAD in [place] artery ([facility]) Restless leg syndrome Restless legs syndrome (RLS) Hiatal hernia with gastroesophageal reflux Orthostatic hypotension- Primary Chest pain, unspecified type SOB (shortness of breath) Shortness of breath Iron 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 dietary iron intake- Primary Hypoalbuminemia Other disorders of plasma protein metabolism SOB (shortness of breath) Shortness of breath Paroxysmal atrial fibrillation ([facility]) Atrial fibrillation documented in [facility] Diagnosis Dissection of thoracoabdominal aorta ([facility])- Primary Essential hypertension, benign ([facility]) Essential hypertension, benign CAD in [place] artery ([facility]) Chronic obstructive pulmonary disease, unspecified COPD type ([facility]/HCC) Esophageal stricture Stricture and stenosis of esophagus Dysphasia Other speech disturbance Failure to thrive in adult- Primary Adult failure to thrive Penetrating ulcer of aorta ([facility]) Chronic obstructive pulmonary disease, unspecified COPD type ([facility]/HCC) Dysphasia Other speech disturbance Failure to thrive in adult- Primary Adult failure to thrive Orthostatic hypotension Dysphasia Other speech disturbance Chronic rhinosinusitis Unspecified sinusitis (chronic) MDD (major depressive disorder), recurrent episode, moderate ([facility]) COPD, mild ([facility]/HCC) Adult hypothyroidism ([facility]) Unspecified hypothyroidism Lumbar spondylosis- Primary Lumbosacral spondylosis without myelopathy Chronic obstructive pulmonary disease, unspecified COPD type ([facility]) Chronic rhinosinusitis Unspecified sinusitis (chronic) Adult hypothyroidism ([facility]) Unspecified hypothyroidism MDD (major depressive disorder), recurrent episode, moderate ([facility]) Orthostatic hypotension Severe protein-calorie malnutrition ([facility]) Other severe protein-calorie malnutrition Chronic heart failure with preserved ejection fraction (HFpEF) ([facility]) CAD in [place] artery ([facility]) Paroxysmal atrial fibrillation ([facility]) Atrial fibrillation Immunodeficiency due to conditions classified elsewhere ([facility]) Thoracic aortic aneurysm, without rupture, unspecified ([facility]) Severe protein-calorie malnutrition ([facility])- Primary Other severe protein-calorie malnutrition Diarrhea, unspecified type Lumbar spondylosis Lumbosacral spondylosis without myelopathy Dysphasia Other speech disturbance Open wound of left lower leg, subsequent encounter- Primary Medicare annual wellness visit, subsequent- Primary Adult hypothyroidism ([facility]) Unspecified hypothyroidism Encounter for long-term 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 medication Essential hypertension, benign ([facility]) Essential hypertension, benign Prediabetes Other abnormal glucose Open wound of left lower leg, subsequent encounter CAD in [place] ([facility]) Restless leg syndrome Restless legs syndrome (RLS) Hiatal hernia with gastroesophageal reflux Orthostatic hypotension- Primary Chest pain, unspecified type SOB (shortness of breath) Shortness of breath Iron 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 dietary iron intake- Primary Hypoalbuminemia Other disorders of plasma protein metabolism SOB (shortness of breath) Shortness of breath Paroxysmal atrial fibrillation ([facility]) Atrial fibrillation Chronic obstructive pulmonary disease, unspecified COPD type ([facility])- Primary SOB (shortness of breath) Shortness of breath documented in this encounter [facility]* Diagnosis Dissection of thoracoabdominal aorta ([facility])- Primary Essential hypertension, benign ([facility]) Essential hypertension, benign CAD in [place] ([facility]) Chronic obstructive pulmonary disease, unspecified COPD type ([facility]) Esophageal stricture Stricture and stenosis of esophagus Dysphasia Other speech disturbance Failure to thrive in adult- Primary Adult failure to thrive Penetrating ulcer of aorta ([facility]) Chronic obstructive pulmonary disease, unspecified COPD type ([facility]) Dysphasia Other speech disturbance Failure to thrive in adult- Primary Adult failure to thrive Orthostatic hypotension Dysphasia Other speech disturbance Chronic rhinosinusitis Unspecified sinusitis (chronic) MDD (major depressive disorder), recurrent episode, moderate (CMS/HCC) COPD, mild (CMS/HCC) Adult hypothyroidism ([facility]/HCC) Unspecified hypothyroidism Lumbar spondylosis- Primary Lumbosacral spondylosis without myelopathy Chronic obstructive pulmonary disease, unspecified COPD type (CMS/HCC) Chronic rhinosinusitis Unspecified sinusitis (chronic) Adult hypothyroidism ([facility]/HCC) Unspecified hypothyroidism MDD (major depressive disorder), recurrent episode, moderate ([facility]/HCC) Orthostatic hypotension Severe protein-calorie malnutrition ([facility]/HCC) Other severe protein-calorie malnutrition Chronic heart failure with preserved ejection fraction (HFpEF) ([facility]) CAD in [place] artery ([facility]/HCC) Paroxysmal atrial fibrillation ([facility]) Atrial fibrillation Immunodeficiency due to conditions classified elsewhere ([facility]) Thoracic aortic aneurysm, without rupture, unspecified ([facility]) Severe protein-calorie malnutrition ([facility]/HCC)- Primary Other severe protein-calorie malnutrition Diarrhea, unspecified type Lumbar spondylosis Lumbosacral spondylosis without myelopathy Dysphasia Other speech disturbance Open wound of left lower leg, subsequent encounter- Primary Medicare annual wellness visit, subsequent- Primary Adult hypothyroidism ([facility]) Unspecified hypothyroidism Encounter for long-term 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 medication Essential hypertension, benign ([facility]) Essential hypertension, benign Prediabetes Other abnormal glucose Open wound of left lower leg, subsequent encounter CAD in [place] ([facility]) Restless leg syndrome Restless legs syndrome (RLS) Hiatal hernia with gastroesophageal reflux Orthostatic hypotension- Primary Chest pain, unspecified type SOB (shortness of breath) Shortness of breath Iron 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 dietary iron intake- Primary Hypoalbuminemia Other disorders of plasma protein metabolism SOB (shortness of breath) Shortness of breath Paroxysmal atrial fibrillation ([facility]/HCC) Atrial fibrillation Chronic obstructive pulmonary disease, unspecified COPD type ([facility]/HCC)- Primary documented in [facility]* Diagnosis Dissection of thoracoabdominal aorta ([facility]/HCC)- Primary Essential hypertension, benign ([facility]/HCC) Essential hypertension, benign CAD in [place] ([facility]/HCC) Chronic obstructive pulmonary disease, unspecified COPD type (CMS/HCC) Esophageal stricture Stricture and stenosis of esophagus Dysphasia Other speech disturbance Failure to thrive in adult- Primary Adult failure to thrive Penetrating ulcer of aorta ([facility]/HCC) Chronic obstructive pulmonary disease, unspecified COPD type ([facility]/HCC) Dysphasia Other speech disturbance Failure to thrive in adult- Primary Adult failure to thrive Orthostatic hypotension Dysphasia Other speech disturbance Chronic rhinosinusitis Unspecified sinusitis (chronic) MDD (major depressive disorder), recurrent episode, moderate ([facility]) COPD, mild ([facility]) Adult hypothyroidism ([facility]) Unspecified hypothyroidism Lumbar spondylosis- Primary Lumbosacral spondylosis without myelopathy Chronic obstructive pulmonary disease, unspecified COPD type ([facility]) Chronic rhinosinusitis Unspecified sinusitis (chronic) Adult hypothyroidism ([facility]) Unspecified hypothyroidism MDD (major depressive disorder), recurrent episode, moderate ([facility]) Orthostatic hypotension Severe protein-calorie malnutrition ([facility]) Other severe protein-calorie malnutrition Chronic heart failure with preserved ejection fraction (HFpEF) ([facility]) CAD in [place] ([facility]) Paroxysmal atrial fibrillation ([facility]) Atrial fibrillation Immunodeficiency due to conditions classified elsewhere ([facility]) Thoracic aortic aneurysm, without rupture, unspecified ([facility]) Severe protein-calorie malnutrition ([facility])- Primary Other severe protein-calorie malnutrition Diarrhea, unspecified type Lumbar spondylosis Lumbosacral spondylosis without myelopathy Dysphasia Other speech disturbance Open wound of left lower leg, subsequent encounter- Primary Medicare annual wellness visit, subsequent- Primary Adult hypothyroidism ([facility]) Unspecified hypothyroidism Encounter for long-term 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 medication Essential hypertension, benign ([facility]) Essential hypertension, benign Prediabetes Other abnormal glucose Open wound of left lower leg, subsequent encounter CAD in [place] ([facility]) Restless leg syndrome Restless legs syndrome (RLS) Hiatal hernia with gastroesophageal reflux Orthostatic hypotension- Primary Chest pain, unspecified type SOB (shortness of breath) Shortness of breath Iron 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 dietary iron intake- Primary Hypoalbuminemia Other disorders of plasma protein metabolism SOB (shortness of breath) Shortness of breath Paroxysmal atrial fibrillation ([facility]) Atrial fibrillation SOB (shortness of breath)- Primary Shortness of breath Severe protein-calorie malnutrition ([facility]) Other severe protein-calorie malnutrition Chronic heart failure with preserved ejection fraction (HFpEF) ([facility]) CAD in [place] ([facility]) Adult hypothyroidism ([facility]) Unspecified hypothyroidism Chronic obstructive pulmonary disease, unspecified COPD type ([facility]) Encounter for long-term 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 medication Iron 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 dietary iron intake CKD stage 3a, GFR 45-59 ml/min ([facility]) documented in this encounter [facility]* Diagnosis Intramural hematoma of thoracic aorta ([facility]-HCC)- Primary Penetrating ulcer of aorta Pulmonary embolism, unspecified chronicity, unspecified pulmonary embolism type, unspecified whether acute cor pulmonale present ([facility]-HCC) Dissection of descending thoracic aorta ([facility]-HCC)- Primary Penetrating ulcer of aorta Age-related osteoporosis without current pathological fracture- Primary [facility] Diagnosis Dissection of thoracoabdominal aorta (HCC)- Primary Essential hypertension, benign Essential hypertension, benign CAD in [place] Chronic obstructive pulmonary disease, unspecified COPD [...] preserved ejection fraction (HFpEF) (HCC) CAD in [place] Paroxysmal atrial fibrillation (HCC) Atrial fibrillation [...] left lower leg, subsequent encounter CAD in [place] Restless leg syndrome Restless legs syndrome [...] preserved ejection fraction (HFpEF) (HCC) CAD in [place] Adult hypothyroidism Unspecified hypothyroidism Chronic obstructive pulmonary disease, unspecified COPD type (HCC) Encounter for long-term 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 medication Iron 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 dietary iron intake CKD stage 3a, GFR 45-59 ml/min ([facility]-HCC) Restless leg syndrome Restless legs syndrome (RLS) [facility] Gastroesophageal reflux disease, unspecified whether esophagitis present- Primary Dysphagia, unspecified type Status post insertion of percutaneous endoscopic gastrostomy (PEG) tube (Multi) documented in this encounter [facility] Work Phone: Evaluation note* Diagnosis SOB (shortness of breath) on exertion Shortness of breath [facility] Diagnosis Normocytic anemia Anemia, unspecified [facility] Diagnosis Dissection of thoracoabdominal aorta (HCC)- Primary Essential hypertension, benign Essential hypertension, benign CAD in [place] Chronic obstructive pulmonary disease, unspecified COPD [...] preserved ejection fraction (HFpEF) (HCC) CAD in [place] Paroxysmal atrial fibrillation (HCC) Atrial fibrillation Immunodeficiency due to conditions classified elsewhere ([facility]) Thoracic aortic aneurysm, without rupture, unspecified Severe [...] left lower leg, subsequent encounter CAD in [place] Restless leg syndrome Restless legs syndrome [...] heart failure with preserved ejection fraction (HFpEF) ([facility]) CAD in [place] Adult hypothyroidism Unspecified hypothyroidism Chronic obstructive pulmonary disease, unspecified COPD type ([facility]) Encounter for long-term 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 medication Iron 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 dietary iron intake CKD stage 3a, GFR 45-59 ml/min ([facility]) Lumbar spondylosis Lumbosacral spondylosis without myelopathy SOB (shortness of breath)- Primary Shortness of breath CAD in [place] Chronic obstructive pulmonary disease, unspecified COPD type ([facility]) Iron 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 dietary iron intake MDD (major depressive disorder), recurrent episode, moderate (HCC) Orthostatic hypotension documented in this encounter [facility]* Diagnosis Dissection of thoracoabdominal aorta ([facility])- Primary Essential hypertension, benign Essential hypertension, benign CAD in [place] Chronic obstructive pulmonary disease, unspecified COPD type (HCC) Esophageal stricture Stricture and stenosis of esophagus Dysphasia Other speech disturbance Failure to thrive in adult- Primary Adult failure to thrive Penetrating ulcer of aorta Chronic obstructive pulmonary disease, unspecified COPD type ([facility]) Dysphasia Other speech disturbance Failure to thrive [...] preserved ejection fraction (HFpEF) (HCC) CAD in [place] Paroxysmal atrial fibrillation (HCC) Atrial fibrillation Immunodeficiency due to conditions classified elsewhere ([facility]) Thoracic aortic aneurysm, without rupture, unspecified Severe [...] left lower leg, subsequent encounter CAD in [place] Restless leg syndrome Restless legs syndrome [...] preserved ejection fraction (HFpEF) (HCC) CAD in [place] Adult hypothyroidism Unspecified hypothyroidism Chronic obstructive pulmonary disease, unspecified COPD type ([facility]) Encounter for long-term 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 medication Iron 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 dietary iron intake CKD stage 3a, GFR 45-59 ml/min ([facility]) Lumbar spondylosis Lumbosacral spondylosis without myelopathy SOB (shortness of breath)- Primary Shortness of breath CAD in [place] Chronic obstructive pulmonary disease, unspecified COPD type ([facility]) Iron 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 dietary iron intake MDD (major depressive disorder), recurrent episode, moderate (HCC) Orthostatic hypotension History of right knee joint replacement- Primary Acute pain of right knee documented in this encounter [facility]* Diagnosis Dissection of thoracoabdominal aorta (HCC)- Primary Essential hypertension, benign Essential hypertension, benign CAD in [place] Chronic obstructive pulmonary disease, unspecified COPD [...] preserved ejection fraction (HFpEF) (HCC) CAD in [place] Paroxysmal atrial fibrillation (HCC) Atrial fibrillation [...] left lower leg, subsequent encounter CAD in [place] Restless leg syndrome Restless legs syndrome [...] heart failure with preserved ejection fraction (HFpEF) ([facility]) CAD in [place] Adult hypothyroidism Unspecified hypothyroidism Chronic obstructive pulmonary disease, unspecified COPD type ([facility]) Encounter for long-term 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 medication Iron 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 dietary iron intake CKD stage 3a, GFR 45-59 ml/min ([facility]) Lumbar spondylosis Lumbosacral spondylosis without myelopathy SOB (shortness of breath)- Primary Shortness of breath CAD in [place] Chronic obstructive pulmonary disease, unspecified COPD type ([facility]) Iron 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 dietary iron intake MDD (major depressive disorder), recurrent episode, moderate ([facility]) Orthostatic hypotension Chronic obstructive pulmonary disease, unspecified COPD type ([facility]) SOB (shortness of breath) Shortness of breath [facility] Skin tear of left lower leg without complication, initial encounter- Primary Elevated brain natriuretic peptide (BNP) level Other nonspecific findings on examination of blood Anemia, unspecified type COPD exacerbation ([facility]) Obstructive chronic bronchitis with exacerbation [facility] Diagnosis Recurrent falls- Primary Personal history of fall KARLEE (acute kidney injury) Acute kidney failure, unspecified Elevated troponin Other abnormal blood chemistry Injury of head, initial encounter Frequent falls Personal history of fall Shortness of breath Severe malnutrition Nutritional marasmus PAF (paroxysmal atrial fibrillation) ([facility]) Atrial fibrillation Pulmonary hypertension ([facility]) Other chronic pulmonary heart diseases History of DVT (deep vein thrombosis) Personal history of venous thrombosis and embolism Essential hypertension Unspecified essential hypertension Chronic diastolic HF (heart failure), NYHA class 3 ([facility]) Dysautonomia orthostatic hypotension 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 Hypercoagulable state due to paroxysmal atrial fibrillation ([facility]) Stage 2 moderate COPD by GOLD classification ([facility]) Acute kidney injury superimposed on CKD Shortness of breath KARLEE (acute kidney injury) Acute kidney failure, unspecified Recurrent falls while walking Head injury Head injury, unspecified Acute on chronic anemia [facility] Diagnosis Dissection of thoracoabdominal aorta ([facility])- Primary Essential hypertension, benign Essential hypertension, benign CAD in [place] Chronic obstructive pulmonary disease, unspecified COPD type ([facility]) Esophageal stricture Stricture and stenosis of esophagus [...] heart failure with preserved ejection fraction (HFpEF) ([facility]) CAD in [place] Paroxysmal atrial fibrillation ([facility]) Atrial fibrillation Immunodeficiency due to conditions classified elsewhere ([facility]) Thoracic aortic aneurysm, without rupture, unspecified Severe [...] left lower leg, subsequent encounter CAD in [place] Restless leg syndrome Restless legs syndrome [...] heart failure with preserved ejection fraction (HFpEF) ([facility]) CAD in [place] Adult hypothyroidism Unspecified hypothyroidism Chronic obstructive pulmonary disease, unspecified COPD type ([facility]) Encounter for long-term 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 medication Iron 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 dietary iron intake CKD stage 3a, GFR 45-59 ml/min ([facility]) Lumbar spondylosis Lumbosacral spondylosis without myelopathy SOB (shortness of breath)- Primary Shortness of breath CAD in [place] artery Chronic obstructive pulmonary disease, unspecified COPD type (HCC) Iron 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 dietary iron intake MDD (major depressive disorder), recurrent episode, moderate (HCC) Orthostatic hypotension CAD in [place]- Primary Lumbar spondylosis Lumbosacral spondylosis without myelopathy Iron 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 dietary iron intake Chronic heart failure with preserved ejection fraction (HFpEF) (HCC) Severe protein-calorie malnutrition (HHS-HCC) Other severe protein-calorie malnutrition SOB (shortness of breath) Shortness of breath [facility] Presence of Watchman left atrial appendage closure device- Primary Atrial fibrillation, unspecified type (HCC) Presence of Watchman left atrial appendage closure device Atrial fibrillation, unspecified type ([facility]) [facility] Diagnosis Normocytic anemia Anemia, unspecified KARLEE (acute kidney injury) Acute kidney failure, unspecified [facility] Diagnosis Dissection of thoracoabdominal aorta ([facility])- Primary Essential hypertension, benign Essential hypertension, benign CAD in [place] artery Chronic obstructive pulmonary disease, unspecified COPD [...] preserved ejection fraction (HFpEF) (HCC) CAD in [place] Paroxysmal atrial fibrillation (HCC) Atrial fibrillation [...] left lower leg, subsequent encounter CAD in [place] Restless leg syndrome Restless legs syndrome [...] preserved ejection fraction (HFpEF) (HCC) CAD in [place] Adult hypothyroidism Unspecified hypothyroidism Chronic obstructive pulmonary disease, unspecified COPD type (HCC) Encounter for long-term 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 medication Iron 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 dietary iron intake CKD stage 3a, GFR 45-59 ml/min ([facility]-HCC) Lumbar spondylosis Lumbosacral spondylosis without myelopathy SOB (shortness of breath)- Primary Shortness of breath CAD in [place] artery Chronic obstructive pulmonary disease, unspecified COPD type (HCC) Iron 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 dietary iron intake MDD (major depressive disorder), recurrent episode, moderate (HCC) Orthostatic hypotension CAD in [place]- Primary Lumbar spondylosis Lumbosacral spondylosis without myelopathy Iron 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 dietary iron intake Chronic heart failure with preserved ejection fraction (HFpEF) (HCC) Severe protein-calorie malnutrition (HHS-HCC) Other severe protein-calorie malnutrition SOB (shortness of breath) Shortness of breath Chronic obstructive pulmonary disease, unspecified COPD type (HCC) COPD, mild (HCC) [facility] Diagnosis Onset Date Resolution Status Admit Date Dysphagia acuteSeptember 2024 1:25pmEsophageal strictureacuteSeptember 2024 1:25pm [facility] Work Phone: Evaluation note* Diagnosis Anemia due to stage 3 chronic kidney disease, 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)- Primary [facility] Diagnosis Anemia due to stage 3 chronic kidney disease, 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)- Primary [facility] Diagnosis Anemia due to stage 3 chronic kidney disease, 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) [facility] Diagnosis Bilateral leg edema- Primary Edema Multiple contusions Contusion of multiple sites, not elsewhere classified documented in this encounter [facility] general Narrative - Reported* Type Description Date Medical History actinic keratoses Medical Historybreast cancerMedical HistoryHypothyroidismMedical History hypercholesterolemiaMedical HistoryhypertensionMedical HistoryRLSMedical History cadMedical HistorycopdMedical HistoryosteoarthritisMedical Historyfailed knee Medical HistoryHx breast cancerMedical History5,10 Methylenetetrahydrofolate reductase deficiencyMedical Historychronic painMedical HistorydepressionMedical Historydiverticular diseaseMedical HistoryGERD/esophageal dyskinesiaMedical HistoryfibromyalgiaMedical HistoryOSAMedical Historyosteoarthritis multiple jointsMedical Historyartifivial right kneeMedical Historypulmonary hypertension Medical Historyrestless legsMedical Historypulmonary noduleMedical History vililagoMedical HistoryHistory of electroconvulsive therapyMedical HistoryHx of phlebitisMedical HistoryRESPIRATORY FAILUREMedical HistoryVasomotor rhinitis Surgical History4 knee surgerySurgical OscuizaRydxezsakckl6985Inmkwrpq History Mastectomy, bilateral, right later bsuw0173,1991Surgical HistoryGall Bladder eiuthal0059Pphdipuy Historycolonoscopy- 20 inches of colon removedSurgical Historycolonoscopy Dr. Jarquin, electrodessication of qfjjdxrivhqpb15-3025Nfxlnwau HistoryIVC ouaqvv2072Dkacqfzr Wgqwetilskxfviehrui7193Vpbzidoz Historycardiac cath mod 2 vessel fabbsfs1509Vzxwoijm Historypatent cwvfj8551Hjmaiapu History carpal tunnelSurgical Ykgwixlxjnvwnkcg2164Revshokl Historycolonoscopy, Argon ablation of AV zpizxemuduko0405Njsjlckr Historycolonoscopy incomplete/ Grillis 2000Surgical HistoryEGD,gastric jxoyd9366Qtgfaetb HistoryEGD, GERD/hiatal hernia 2011Surgical HistoryEGE, Schazkis ring/IFFX2998Vyefvhly HistoryHemorrhoidectomy 1970Surgical Historyright knee revision arthroplasty/ [facility]12-2016 Surgical HistoryPACEMAKER03/04/17Surgical HistoryCardiac cath 80% stenosis LAD with stentSurgical HistoryRevision RTKA patellectomy, [place], patellar loosening02/12/2015Surgical HistoryRTKA patellar revision AVN patella03/13/2014 Surgical Historyarthroscopic debridement , extensive, lateral patellolasty 12/20/2013Surgical Historycardiac cath, [place],?09/2017Surgical HistoryR Knee 06/18/18urgical Djncphjxtiwtmjwkogsei1165Uaadenlordmuuwh Historyas above Hospitalization HistoryR TKR Infection, in Qpzmxjv20/2019Hospitalization History HTN in Pnkwwnv53/2020 [employer] Other History of Present illness Narrative* Dysphagia [...] oral intake. [facility] * Patient with recent visit [...] problem. Patient receptive to suggestions provided by SHANK MAKER at time of visit. Do not feel further SHANK MAKER services required unless changes in oropharyngeal function develop. * P: Continue diet as tolerated. SHANK MAKER to follow as needed. [facility]-Vqyrikmccfgighnk-Ocarnjh [facility] Work Phone: History of Present [...] problem. Patient receptive to suggestions provided by SHANK MAKER at time of visit. Do not feel further SHANK MAKER services required unless changes in oropharyngeal function develop. * P: Continue diet as tolerated. SHANK MAKER to follow as needed. [facility] Work Phone: History of Present illness Narrative* [...] problem. Patient receptive to suggestions provided by SHANK MAKER at time of visit. Do not feel further SHANK MAKER services required unless changes in oropharyngeal function develop. * P: Continue diet as tolerated. SHANK MAKER to follow as needed. [facility] Work Phone: History of Present illness Narrative* [...] problem. Patient receptive to suggestions provided by SHANK MAKER at time of visit. Do not feel further SHANK MAKER services required unless changes in oropharyngeal function develop. * P: Continue diet as tolerated. SHANK MAKER to follow as needed. [facility] Work Phone: Hospital Discharge instructions* Attachments The following attachments cannot be sent through Care Everywhere. * Acute Kidney Injury (Guinean) * Orthostatic Hypotension (Guinean) * Blood Transfusions: General Info ([place]inean) * cephalexin ([place]) [facility]ructionsNot on [facility] documented in [facility] encounter[facility] SystemInstructionsNot on file documented in this encounterProMedica [facility] SystemInstructionsNot on file documented in this encounterProMedica Health SystemInstructionsNot on file documented in this encounterProMedica Health SystemInstructionsNot on file documented in this encounterProMedica Health SystemInstructionsNot on file documented in this encounterProMedica Health SystemInstructionsNot on file documented in this encounterProMedica Health SystemInstructionsNot on file documented in this encounterProMedica Health SystemProgress note No data available for this section [facility] Reason for referral (narrative)* Diagnostic Procedure Only (Routine) - ClosedSpecialtyDiagnoses / ProceduresReferred By Contact Referred To ContactXR IMAGING Diagnoses Pain in left wrist Procedures XR FOREARM GENERAL 2V AP/LAT LEFT RADEX FOREARM 2 [place] [address] [place] [address] Xr Imaging Referral IDStatusReasonStart DateExpiration DateVisits RequestedVisits [id number] Auto-Generated Referral / * Consult, Test, Treat (Routine) - AuthorizedSpecialtyDiagnoses / Procedures Referred By ContactReferred To Contact Diagnoses Spinal stenosis of lumbar region, unspecified whether neurogenic claudication present Lumbar radiculopathy, chronic Spinal stenosis of lumbar region with neurogenic claudication Procedures CONSULT TO SPINE SURGERY OFFICE/OUTPATIENT [facility] 60-74 [place] [address] [place] [address] Referral IDStatusReasonStart DateExpiration DateVisits RequestedVisits [id number]/16/20228/14/202211 * MRI/CT (Routine) - ClosedSpecialtyDiagnoses / ProceduresReferred By Contact Referred To ContactCT IMAGING Diagnoses Spinal stenosis of lumbar region with neurogenic claudication Procedures CT LUMBAR SPINE WO IVCON CT LUMBAR SPINE W/[place] [address] [place] [address] Ct Imaging Referral IDStatusReasonStart DateExpiration DateVisits RequestedVisits [id number] Auto-Generated Referral * Diagnostic Procedure Only (Routine) - ClosedSpecialtyDiagnoses / Procedures Referred By ContactReferred To ContactXR IMAGING Diagnoses Spinal stenosis of lumbar region, unspecified whether neurogenic claudication present Lumbar radiculopathy, chronic Pain in left wrist Spinal stenosis of lumbar region with neurogenic claudication Procedures XR LUMBAR GENERAL 3V AP/LAT/L5-S1 RADEX SPINE LUMBOSACRAL 2/3 VIEWS [place] Amato DO [id number] [place] [address] Xr Imaging Referral IDStatusReasonStart DateExpiration DateVisits RequestedVisits [id number] Auto-Generated Referral * Diagnostic Procedure Only (Routine) - ClosedSpecialtyDiagnoses / Procedures Referred By ContactReferred To ContactXR IMAGING Diagnoses Spinal stenosis of lumbar region, unspecified whether neurogenic claudication present Lumbar radiculopathy, chronic Pain in left wrist Spinal stenosis of lumbar region with neurogenic claudication Procedures XR WRIST GENERAL 3V PA/LAT/OBL LEFT RADEX WRIST COMPLETE MINIMUM 3 [place] [address] [place] [address] Xr Imaging Referral IDStatusReasonStart DateExpiration DateVisits RequestedVisits [id number] Auto-Generated Referral [facility] for referral (narrative)* Diagnostic Procedure Only (Routine) - ClosedSpecialtyDiagnoses / ProceduresReferred By ContactReferred To ContactXR IMAGING Diagnoses Pain in left wrist Procedures XR FOREARM GENERAL 2V AP/LAT LEFT RADEX FOREARM 2 [place] [address] [place] [address] Xr Imaging Referral IDStatusReasonStart DateExpiration DateVisits RequestedVisits [id number] Auto-Generated Referral * Diagnostic Procedure Only (Routine) - ClosedSpecialtyDiagnoses / Procedures Referred By ContactReferred To ContactXR IMAGING Diagnoses Spinal stenosis of lumbar region, unspecified whether neurogenic claudication present Lumbar radiculopathy, chronic Pain in left wrist Spinal stenosis of lumbar region with neurogenic claudication Procedures XR LUMBAR GENERAL 3V AP/LAT/L5-S1 RADEX SPINE LUMBOSACRAL 2/3 [place] [address] [place] [address] Xr Imaging Referral IDStatusReasonStart DateExpiration DateVisits RequestedVisits [id number] Auto-Generated Referral * Diagnostic Procedure Only (Routine) - ClosedSpecialtyDiagnoses / Procedures Referred By ContactReferred To ContactXR IMAGING Diagnoses Spinal stenosis of lumbar region, unspecified whether neurogenic claudication present Lumbar radiculopathy, chronic Pain in left wrist Spinal stenosis of lumbar region with neurogenic claudication Procedures XR WRIST GENERAL 3V PA/LAT/OBL LEFT RADEX WRIST COMPLETE MINIMUM 3 [place] [address] [place] [address] Xr Imaging Referral IDStatusReasonStart DateExpiration DateVisits RequestedVisits [id number] Auto-Generated Referral / [facility] for referral (narrative)* Diagnostic Procedure Only (Routine) - ClosedSpecialtyDiagnoses / ProceduresReferred By ContactReferred To ContactXR IMAGING Diagnoses S/P revision of total knee, left Procedures XR KNEE POST OP 3V AP/LAT/MERCHANT RIGHT RADIOLOGIC EXAMINATION KNEE 3 VIEWS Cooper Stephens PA-C [address] [place] [address] Xr Imaging [place] [address] Referral IDStatusReasonSttyler DateExpiration DateVisits RequestedVisits [id number] Auto-Generated Referral / [facility] for referral (narrative)* Diagnostic Procedure Only (Routine) - ClosedSpecialtyDiagnoses / ProceduresReferred By ContactReferred To ContactXR IMAGING Diagnoses Infection associated with internal right knee prosthesis, subsequent encounter Procedures XR KNEE POST OP 3V AP/LAT/MERCHANT RIGHT RADIOLOGIC EXAMINATION KNEE 3 VIEWS Cooper Stephens PA-C [address] [place] [id number] Xr Imaging [place] [address] Referral IDStatusReasonSttyler DateExpiration DateVisits RequestedVisits [id number] Auto-Generated Referral / T [facility] for referral (narrative)* Diagnostic Procedure Only (Routine) - ClosedSpecialtyDiagnoses / ProceduresReferred By ContactReferred To ContactXR IMAGING Diagnoses Infection associated with internal right knee prosthesis, subsequent encounter Procedures XR KNEE POST OP 3V AP/LAT/MERCHANT RIGHT RADIOLOGIC EXAMINATION KNEE 3 VIEWS Cooper Stephens PA-C [address] [place] [id number] Xr Imaging [place] [address] Referral IDStatusReasonStart DateExpiration DateVisits RequestedVisits [id number] Auto-Generated Referral / [facility] for referral (narrative)* Diagnostic Procedure Only (Routine) - ClosedSpecialtyDiagnoses / ProceduresReferred By ContactReferred To ContactXR IMAGING Diagnoses 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 Procedures XR KNEE POST OP 3V AP/LAT/MERCHANT RIGHT RADIOLOGIC EXAMINATION KNEE 3 VIEWS Cooper Stephens PA-C [address] [place] [id number] Xr Imaging [place] [address] Referral IDStatusReasonStart DateExpiration DateVisits RequestedVisits [id number] Auto-Generated Referral / [facility] (narrative)* Diagnostic Procedure Only (Routine) - ClosedSpecialtyDiagnoses / ProceduresReferred By ContactReferred To ContactXR IMAGING Diagnoses S/P revision of total knee, right Procedures XR KNEE POST OP 3V AP/LAT/MERCHANT RT X-RAY KNEE 3+ VW Cooper Stephens PA-C [address] [place] [id number] Xr Imaging [facility] Referral IDStatusReasonStart DateExpiration DateVisits RequestedVisits [id number] Auto-Generated Referral / [facility] for referral (narrative)* Consultation (Routine) - AuthorizedSpecialtyDiagnoses / ProceduresReferred By ContactReferred To ContactBariatrics / General Surgery Diagnoses [place], [place] [address] [place] [address] Nolan Julio MD [facility] [address] [facility] [place] [address] Referral IDStatusReasonStart DateExpiration DateVisits RequestedVisits [id number] Specialty Services Required * Endoscopy (Routine) - AuthorizedSpecialtyDiagnoses / ProceduresReferred By ContactReferred To ContactGastroenterology Diagnoses Gastroesophageal reflux disease, unspecified whether esophagitis present Procedures Esophagogastroduodenoscopy (EGD) w Dilation TTS AR ESOPHAGOGASTRODUODENOSCOPY TRANSORAL DIAGNOSTIC AR EGD TRANSORAL BIOPSY SINGLE/[place] [address] [facility] [place] [address] Referral IDStatusReasonStart DateExpiration DateVisits RequestedVisits [id number]/13/20248/13/202511 [facility] Work Phone: Reason for referral (narrative)* Consultation (Routine) - Pending ReviewSpecialtyDiagnoses / ProceduresReferred By Contact Referred To ContactPain Medicine Diagnoses Lumbar spondylosis Procedures AR OFFICE/OUTPATIENT NEW HIGH MDM 60 MINUTES Douglas Will MD [address] [place] [address] Clemente Sutton MD [address] [place] [address] Referral IDStatusReasonStart DateExpiration DateVisits RequestedVisits [id number] Review Specialty Services Required / [facility] for referral (narrative)No reason for referral information availableMercy Health St. [facility] Work Phone: [facility] Narrative* Diagnostic Procedure Only (Routine) - ClosedSpecialtyDiagnoses / ProceduresReferred By ContactReferred To ContactXR IMAGING Diagnoses Pain in left wrist Procedures XR FOREARM GENERAL 2V AP/LAT LEFT RADEX FOREARM 2 [place] [address] [place] [address] Xr Imaging Referral IDStatusReasonStart DateExpiration DateVisits RequestedVisits [id number] Auto-Generated Referral / [facility] for visit Narrative* Diagnostic Procedure Only (Routine) - ClosedSpecialtyDiagnoses / ProceduresReferred By ContactReferred To Contact XR IMAGING Diagnoses Infection associated with internal right knee prosthesis, subsequent encounter Procedures XR KNEE POST OP 3V AP/LAT/MERCHANT RIGHT RADIOLOGIC EXAMINATION KNEE 3 VIEWS Cooper Stephens, PA-C [address] [place] [address] Xr Imaging [place] [address] Referral IDStatusReasonStart DateExpiration DateVisits RequestedVisits [id number] Auto-Generated Referral / [facility] for visit Narrative* Diagnostic Procedure Only (Routine) - ClosedSpecialtyDiagnoses / ProceduresReferred By ContactReferred To Contact XR IMAGING Diagnoses S/P revision of total knee, right Procedures XR KNEE POST OP 3V AP/LAT/MERCHANT RT X-RAY KNEE 3+ VW Cooper Stephens, PA-C [address] [place] [phone] Xr Imaging [facility] Referral IDStatusReasonStart DateExpiration DateVisits RequestedVisits [id number] Auto-Generated Referral / [facility] for visit Narrative* Consultation (Routine) - Authorized SpecialtyDiagnoses / ProceduresReferred By ContactReferred To Contact Bariatrics / General Surgery Diagnoses Dysphagia, [place] [address] [place] [address] Nolan Julio MD [facility] [address] [facility] [place] [address] Referral IDStatusM[facility] DateExpiration DateVisits RequestedVisits [id number] Specialty Services Required / [facility] Work Phone: [facility] for visit Narrative* Consultation (Routine) - ClosedSpecialtyDiagnoses / ProceduresReferred By ContactReferred To Contact Pulmonary Disease / Pulmonology Diagnoses Chronic obstructive pulmonary disease, unspecified COPD type (HCC) SOB (shortness of breath) Procedures AR OFFICE/OUTPATIENT NEW HIGH MDM 60 MINUTES Douglas Will MD [address] [place] [address] Phone: tel: fax: Timothy Penn, DO [address] [address] Phone: tel: fax: Referral IDStatusReasonSttyler DateExpiration DateVisits RequestedVisits [id number] Specialty Services Required / [facility] for visit Narrative* Auth/CertSpecialtyDiagnoses / ProceduresReferred By ContactReferred To Contact Diagnoses Atrial fibrillation, unspecified type (HCC) Procedures AR PERQ CLSR TCAT L ATR APNDGE W/ENDOCARDIAL IMPLNT natividad / jaleesa/Watchman julita closure device Davidson Herrera MD [address] [facility] [address] [place] [address] Phone: tel: fax: [facility] [address] [place] [address] Referral IDStatusReasonStart DateExpiration DateVisits RequestedVisits [id number] [facility] for visit Narrative* Treatment Plan and Therapy Plan (Routine) - ClosedSpecialtyDiagnoses / ProceduresReferred By Contact Referred To Contact Diagnoses Anemia due to stage 3 chronic kidney disease, 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) Procedures AR IRON SUCROSE INJECTION Rhoda Quezada MD [facility] [place] [address] Phone: tel: fax: Rhoda Quezada MD [address] [place] [address] Phone: tel: fax: Referral IDStatusReasonSttyler DateExpiration DateVisits RequestedVisits [id number]/23/202512/ [facility] for visit Narrative* Treatment Plan and Therapy Plan (Routine) - AuthorizedSpecialtyDiagnoses / ProceduresReferred By Contact Referred To Contact Diagnoses Anemia due to stage 3 chronic kidney disease, 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) Procedures AR INJ RETACRIT NON-ESRD USE Rhoda Quezada MD [address] [place] [address] Phone: tel: fax: Rhoda Quezada MD [address] [place] [address] Phone: tel: fax: Referral IDStatusReasonStart DateExpiration DateVisits RequestedVisits [id number]/23/202512/ [facility] Summary Purpose Family History No Family History Records FoundUnknown Family Member Name Dates Details : Mother, Father Status:ActiveFamily history of malignant neoplasm: Mother(V16.9, Z80.9) Status:ActiveFamily history of blood clots: Father(V18.3, Z82.49) Status:Active Unknown Family Member Name Dates Details : Mother, Father Status:ActiveFamily history of malignant neoplasm: Mother(V16.9, Z80.9) Status:ActiveFamily history of blood clots: Father(V18.3, Z82.49) Status:Active Unknown Family Member Name Dates Details : Mother, Father Status:ActiveFamily history of malignant neoplasm: Mother(V16.9, Z80.9) Status:ActiveFamily history of blood clots: Father(V18.3, Z82.49) Status:Active Unknown Family Member Name Dates Details : Mother, Father Status:ActiveFamily history of malignant neoplasm: Mother(V16.9, Z80.9) Status:ActiveFamily history of blood clots: Father(V18.3, Z82.49) Status:Active Unknown Family Member Name Dates Details : Mother, Father Status:ActiveFamily history of malignant neoplasm: Mother(V16.9, Z80.9) Status:ActiveFamily history of blood clots: Father(V18.3, Z82.49) Status:Active Unknown Family Member Name Dates Details : Mother, Father Status:ActiveFamily history of malignant neoplasm: Mother(V16.9, Z80.9) Status:ActiveFamily history of blood clots: Father(V18.3, Z82.49) Status:Active Unknown Family Member Name Dates Details : Mother, Father Status:ActiveFamily history of malignant neoplasm: Mother(V16.9, Z80.9) Status:ActiveFamily history of blood clots: Father(V18.3, Z82.49) Status:Active Unknown Family Member Name Dates Details Family history of blood clot s: Father(V18.3, Z82.49) Status:ActiveFamily history of malignant neoplasm: Mother(V16.9, Z80.9) Status:ActiveDeceased: Mother, Father Status:Active Unknown Family Member Name Dates Details : Mother, Father Status:ActiveFamily history of malignant neoplasm: Mother(V16.9, Z80.9) Status:ActiveFamily history of blood clots: Father(V18.3, Z82.49) Status:Active Unknown Family Member Name Dates Details : Mother, Father Status:ActiveFamily history of malignant neoplasm: Mother(V16.9, Z80.9) Status:ActiveFamily history of blood clots: Father(V18.3, Z82.49) Status:Active Unknown Family Member Name Dates Details : Mother, Father Status:ActiveFamily history of malignant neoplasm: Mother(V16.9, Z80.9) Status:ActiveFamily history of blood clots: Father(V18.3, Z82.49) Status:Active Unknown Family Member Name Dates Details : Mother, Father Status:ActiveFamily history of malignant neoplasm: Mother(V16.9, Z80.9) Status:ActiveFamily history of blood clots: Father(V18.3, Z82.49) Status:Active Unknown Family Member Name Dates Details : Mother, Father Status:ActiveFamily history of malignant neoplasm: Mother(V16.9, Z80.9) Status:ActiveFamily history of blood clots: Father(V18.3, Z82.49) Status:Active Unknown Family Member Name Dates Details : Mother, Father Status:ActiveFamily history of malignant neoplasm: Mother(V16.9, Z80.9) Status:ActiveFamily history of blood clots: Father(V18.3, Z82.49) Status:Active Unknown Family Member Name Dates Details : Mother, Father Status:ActiveFamily history of malignant neoplasm: Mother(V16.9, Z80.9) Status:ActiveFamily history of blood clots: Father(V18.3, Z82.49) Status:Active Unknown Family Member Name Dates Details : Mother, Father Status:ActiveFamily history of malignant neoplasm: Mother(V16.9, Z80.9) Status:ActiveFamily history of blood clots: Father(V18.3, Z82.49) Status:Active Unknown Family Member Name Dates Details : Mother, Father Status:ActiveFamily history of malignant neoplasm: Mother(V16.9, Z80.9) Status:ActiveFamily history of blood clots: Father(V18.3, Z82.49) Status:Active Unknown Family Member Name Dates Details Family history of blood clot s: Father(V18.3, Z82.49) Status:ActiveFamily history of malignant neoplasm: Mother(V16.9, Z80.9) Status:ActiveDeceased: Mother, Father Status:Active Unknown Family Member Name Dates Details : Mother, Father Status:ActiveFamily history of malignant neoplasm: Mother(V16.9, Z80.9) Status:ActiveFamily history of blood clots: Father(V18.3, Z82.49) Status:Active Unknown Family Member Name Dates Details : Mother, Father Status:ActiveFamily history of malignant neoplasm: Mother(V16.9, Z80.9) Status:ActiveFamily history of blood clots: Father(V18.3, Z82.49) Status:Active Unknown Family Member Name Dates Details : Mother, Father Status:ActiveFamily history of malignant neoplasm: Mother(V16.9, Z80.9) Status:ActiveFamily history of blood clots: Father(V18.3, Z82.49) Status:Active Relationship Condition Age at Onset Recorded Date/T leonel brother Unknown fatherFamily history of other conditionUnknownDeceasedUnknownfamily member Diabetes mellitusUnknownHypertensionUnknownmotherFamily history of colon cancer UnknownMalignant neoplasmUnknown Advance Directives No Advanced Directives Records FoundDocuments on File TypeDate RecordedPatient RepresentativeExplanationAdvance Directives and Living WillPower of AttorneyCode StatusDate ActivatedDate InactivatedCommentsFull Code 06/14/2018 4:10 06/16/2018 3:59 PMFull Code05/05/2018 12:16 AM05/10/2018 2:37 PM Full Code05/05/2018 12:16 AM05/05/2018 12:16 AMFull Code04/28/2018 2:51 PM05/03/2018 8:51 PMFull Code04/28/2018 11:37 AM04/28/2018 2:51 PMTypeDate RecordedPatient RepresentativeExplanationAdvance Directives and Living WillPower of AttorneyCode StatusDate ActivatedDate InactivatedCommentsFull Code06/14/2018 4:10 PM 06/16/2018 3:59 PMFull Code05/05/2018 12:16 AM05/10/2018 2:37 PMFull Code05/05/2018 12:16 AM05/05/2018 12:16 AMFull Code04/28/2018 2:51 PM05/03/2018 8:51 PMFull Code 04/28/2018 11:37 AM04/28/2018 2:51 PMTypeDate RecordedPatient Manager Interventional ExplanationACP-Advance DirectiveACP-Power of AttorneyCode StatusDate Activated Date InactivatedCommentsFull Code04/03/2020 9:31 AMFull Code06/14/2018 4:10 PM 06/16/2018 3:59 PMCode StatusDate ActivatedDate InactivatedCommentsFull Code 04/03/2020 9:31 AM04/06/2020 1:48 PM Advance Directive Response Recorded Date/ Time Advance Directives No June 3:35pm TypeDate RecordedPatient RepresentativeExplanationAdvance Directive(s)07/12/2021 3:41 PMAdvance Directive(s)06/09/2021 4:05 PMAdvance Directive(s)05/29/2021 6:45 PMAdvance Directive(s)03/25/2020 10:45 AMAdvance Directive(s)03/24/2020 1:55 PM Advance Directive(s)06/16/2018 10:15 PMAdvance Directive(s)08/05/2016 9:41 AM Advance Directive(s)07/30/2016 8:38 AMAdvance Directive(s)04/23/2016 9:26 AM Advance Directive(s)04/23/2016 3:36 PMCode StatusDate ActivatedDate Inactivated CommentsFull Code06/15/2021 2:49 PM06/21/2021 1:03 AMFull Code Order Discussed With:PatientFull Code05/29/2021 9:08 PM10 4:02 PMFull Code Order Discussed With:Discussion Not Medically AppropriateTypeDate RecordedPatient RepresentativeExplanationAdvance Directive(s)07/12/2021 3:41 PMAdvance Directive(s)06/09/2021 4:05 PMAdvance Directive(s)05/29/2021 6:45 PMAdvance Directive(s)03/25/2020 10:45 AMAdvance Directive(s)03/24/2020 1:55 PMAdvance Directive(s)06/16/2018 10:15 PMAdvance Directive(s)08/05/2016 9:41 AMAdvance Directive(s)07/30/2016 8:38 AMAdvance Directive(s)04/23/2016 9:26 AMAdvance Directive(s)04/23/2016 3:36 PMCode StatusDate ActivatedDate InactivatedComments Full Code06/15/2021 2:49 PM06/21/2021 1:03 AMFull Code05/29/2021 9:08 PM 06/05/2021 4:02 PM Advance Directive Response Recorded Date/ Time Advance Directives No December 23, 2021 4:18pm Code StatusDate ActivatedDate InactivatedCommentsFull Code04/02/2022 4:10 PMFull Code04/03/2020 9:31 AM04/06/2020 1:48 PMNameRelationshipHealthcare Agent RelationshipCommunicationCarlos WeikerSpousePrimary Decision Maker* Code StatusDate ActivatedDate InactivatedCommentsFull Code04/02/2022 4:10 PM 04/03/2022 7:48 PMNameRelationshipHealthcare Agent RelationshipCommunication Adam WeikerSpousePrimary Decision Maker* NameRelationshipHealthcare Agent RelationshipCommunicationCarlos WeikerSpouse Primary Decision Maker* NameRelationshipHealthcare Agent RelationshipCommunicationCarlos WeikerSpouse Primary Decision Maker* NameRelationshipHealthcare Agent RelationshipCommunicationCarlos WeikerSpouse Primary Decision Maker* NameRelationshipHealthcare Agent RelationshipCommunicationCarlos WeikerSpouse Primary Decision Maker* Code StatusDate ActivatedDate InactivatedCommentsFull Code8 4:10 PM 04/03/2022 7:48 PMCode StatusDate ActivatedDate InactivatedCommentsFull Code 04/03/2020 9:31 AM04/06/2020 1:48 PMFull Code06/14/2018 4:10 PM10 3:59 PM Full Code05/05/2018 12:16 AM05/10/2018 2:37 PMFull Code05/05/2018 12:16 AM05/05/2018 12:16 AMNameRelationshipHealthcare Agent RelationshipCommunicationCarlos Petra SpousePrimary Decision Maker* Code StatusDate ActivatedDate InactivatedCommentsFull Code04/02/2022 4:10 PM 04/03/2022 7:48 PMCode StatusDate ActivatedDate InactivatedCommentsFull Code 04/03/2020 9:31 AM04/06/2020 1:48 PMFull Code06/14/2018 4:10 PM10 3:59 PM Full Code05/05/2018 12:16 AM05/10/2018 2:37 PMFull Code05/05/2018 12:16 AM05/05/2018 12:16 AMNameRelationshipHealthcare Agent RelationshipCommunicationCarlos Petra SpousePrimary Decision Maker* NameRelationshipHealthcare Agent RelationshipCommunicationCarlos WeikerSpouse Primary Decision Maker* NameRelationshipHealthcare Agent RelationshipCommunicationCarlos WeikerSpouse Primary Decision Maker* NameRelationshipHealthcare Agent RelationshipCommunicationCarlos WeikerSpouse Primary Decision Maker* NameRelationshipHealthcare Agent RelationshipCommunicationCarlos WeikerSpouse Primary Decision Maker* Code StatusDate ActivatedDate InactivatedCommentsFull Code06/15/2021 2:49 PM 06/21/2021 1:03 AMQuestionAnswerCommentsFull Code Order Discussed With:Patient Code StatusDate ActivatedDate InactivatedCommentsFull Code05/29/2021 9:08 PM 06/05/2021 4:02 PMQuestionAnswerCommentsFull Code Order Discussed With: Discussion Not Medically AppropriateNameRelationshipHealthcare Agent RelationshipCommunicationCarlos [facility] Decision Maker* Date ActivatedDate SvojoifmuilTcqphjbu14/30/2021 2:49 PM06/21/2021 1:03 AM QuestionAnswerCommentsFull Code Order Discussed With:* Patient Date ActivatedDate ZiitckxcfbrJneulyps31/13/2021 9:08 PM10 4:02 PM QuestionAnswerCommentsFull Code Order Discussed With:* Discussion Not Medically Appropriate Date ActivatedDate InactivatedComments03/28/2024 6:04 PMQuestionAnswerComments Plan of Care:* Code Status Discussion Completed Decision Maker:* Patient Date ActivatedDate InactivatedComments04/02/2022 4:10 PM04/03/2022 7:48 PMDate ActivatedDate InactivatedComments04/03/2020 9:31 AM04/06/2020 1:48 PMDate ActivatedDate SlozpmleldfFprgiulc17/29/2018 4:10 PM10 3:59 PMDate ActivatedDate InactivatedComments05/05/2018 12:16 AM05/10/2018 2:37 PMDate ActivatedDate InactivatedComments05/05/2018 12:16 AM05/05/2018 12:16 AMDate ActivatedDate InactivatedComments03/28/2024 6:04 PMQuestionAnswerCommentsPlan of Care:* Code Status Discussion Completed Decision Maker:* Patient TypeDate RecordedPatient RepresentativeExplanationDurable Power of Presentation Specialist 12/14/2023 12:31 PMDate ActivatedDate InactivatedComments01/15/2024 1:16 AM 01/19/2024 11:12 PMDate ActivatedDate InactivatedComments12/31/2023 2:13 AM 01/01/2024 7:06 PMDate ActivatedDate InactivatedComments12/20/2023 5:43 PM12/25/2023 3:42 PMDate ActivatedDate InactivatedComments11/23/2023 8:04 PM11/23/2023 9:03 PM Date ActivatedDate GkayefuxdnuErbmojmk53/4/2023 6:35 PM10 2:54 PMDate ActivatedDate InactivatedComments12/13/2024 8:08 PMDate ActivatedDate Inactivated Comments01/15/2024 1:16 AM01/19/2024 11:12 PMDate ActivatedDate InactivatedComments 12/31/2023 2:13 AM01/01/2024 7:06 PMDate ActivatedDate InactivatedComments12/20/2023 5:43 PM12/25/2023 3:42 PMDate ActivatedDate InactivatedComments11/23/2023 8:04 PM 11/23/2023 9:03 PMDate ActivatedDate InactivatedComments12/13/2024 8:08 PM12/16/2024 5:38 PMNameRelationshipHealthcare Agent RelationshipCommunicationCarlos [facility]Primary Decision Maker* NameRelationshipHealthcare Agent RelationshipCommunicationCarlos [facility] Primary Decision Maker* NameRelationshipHealthcare Agent RelationshipCommunicationCarlos [facility] Primary Decision Maker* Date ActivatedDate InactivatedComments03/21/2025 5:36 PMDate ActivatedDate InactivatedComments04/02/2022 4:10 PM04/03/2022 7:48 PMDate ActivatedDate InactivatedComments04/03/2020 9:31 AM04/06/2020 1:48 PMDate ActivatedDate QsjxpwnucplQpmgkwfc94/29/2018 4:10 PM10 3:59 PMDate ActivatedDate InactivatedComments05/05/2018 12:16 AM05/10/2018 2:37 PMNameRelationshipHealthcare Agent RelationshipCommunicationCarlos [facility]Primary Decision Maker* Date ActivatedDate InactivatedComments04/26/2025 7:22 AMDate ActivatedDate InactivatedComments03/21/2025 5:36 PM03/24/2025 4:15 PMDate ActivatedDate InactivatedComments04/02/2022 4:10 PM04/03/2022 7:48 PMDate ActivatedDate InactivatedComments04/03/2020 9:31 AM04/06/2020 1:48 PMDate ActivatedDate NkdxhjovlseDosnjnfv40/29/2018 4:10 PM10 3:59 PMNameRelationship Healthcare Agent RelationshipCommunicationCarlos WeikerSpousePrimary Decision Maker* Date ActivatedDate InactivatedComments04/26/2025 7:22 AM04/26/2025 6:50 PMDate ActivatedDate InactivatedComments03/21/2025 5:36 PM03/24/2025 4:15 PMDate Activated Date InactivatedComments04/02/2022 4:10 PM04/03/2022 7:48 PMDate ActivatedDate InactivatedComments04/03/2020 9:31 AM04/06/2020 1:48 PMDate ActivatedDate PgiesfeyavtJhobpnzw53/29/2018 4:10 PM10 3:59 PMNameRelationship Healthcare Agent RelationshipCommunicationCarlos WeikerSpousePrimary Decision Maker* Date ActivatedDate InactivatedComments04/26/2025 7:22 AM04/26/2025 6:50 PMName RelationshipHealthcare Agent RelationshipCommunicationCarlos WeikerSpousePrimary Decision Maker* NameRelationshipHealthcare Agent RelationshipCommunicationCarlos WeikerSpouse Primary Decision Maker* NameRelationshipHealthcare Agent RelationshipCommunicationCarlos WeikerSpouse Primary Decision Maker* NameRelationshipHealthcare Agent RelationshipCommunicationCarlos WeikerSpouse Primary Decision Maker* NameRelationshipHealthcare Agent RelationshipCommunicationCarlos WeikerSpouse Primary Decision Maker* Discharge Instructions * Patient Instructions* Nighat Bazzi, [facility] - 04/05/2019 10:57 AM EDT Please take [...] in this encounter* Patient Instructions* Nighat Bazzi [facility] - 05/30/2019 11:05 AM EDT Continue current [...] in this encounter* Patient Instructions* Henna Bravo [facility] - 06/27/2019 2:15 PM EST Please take 2 tablets (10mg) warfarin today then return to your regular dosing of 7.5mg ( 1 1/2 tablets) Thursday and Thursday and 5mg (1 tablet) all other days. Continue to monitor for signs of bleeding. Return to coumadin clinic in 2 weeks. documented in this encounter* Patient Instructions* Shy Osuna [facility] - 11/07/2019 10:30 AM EDT Continue to monitor urine and stool. Continue to monitor for signs of bleeding. Return to clinic in3 weeks. Continue 7.5 mg on M,W,F and 5 mg all other days. documented in this encounter* Patient Instructions* Shy Osuna [facility] - 01/25/2020 11:00 AM EDT Continue to monitor urine and stool. Continue to monitor for signs of bleeding. Return to clinic in2 weeks. Hold warfarin today then decrease warfarin to 1.5 tablets for 7.5 mg on M,F and whole 5 mgtablet all other days. documented in this encounter* Patient Instructions* Nighat Bazzi [facility] - 02/14/2020 3:00 PM EDT Continue current dose of warfarin as instructed on dosing calendar provided. Continue to monitor urine and stool for signs and symptoms of bleeding. Please notify the clinic of any medication changes. Kindly notify the clinic if you are unable to make to your next appointment. documented in this encounter* Discharge Instr - Activity* Bethany Carbajal RN - 04/06/2020 10:40 AM EDT As tolerated. * Discharge Instr - Diet* Bethany Carbajal RN - 04/06/2020 10:40 AM EDT [...] at most local grocery stores, pharmacies, and [email or web address]. ? If you have any questions about [...] number to look at. * Additional Instructions* Bethany Carbajal RN - 04/06/2020 Patient Instructions: Activity: activity as tolerated Diet: cardiac diet Follow up: Patient will be followed by Epi Andrews in 1-2 weeks documented in this encounter* Attachments The following attachments cannot be sent through Care Everywhere. * SOB (Shortness of Breath) (Guinean) documented in this encounter* Patient Instructions* Nighat Bazzi [facility] - 05/28/2020 10:30 AM EDT Please take warfarin 10 mg today. Continue current dose of warfarin as instructed on dosing calendar provided - warfarin 1.5 tablets for 7.5 mg on M,W,F and whole 5 mg tablet all other days. Return to clinic in 3 weeks. Continue to monitor urine and stool for signs and symptoms of bleeding. documented in this encounter* Patient Instructions* Henna Bravo [facility] - 06/25/2020 11:00 AM EST Please take 10mg warfarin today then resume previous dosing. Take last dose of warfarin on Thursday then follow calendar provided in preparation for surgery. Continue to monitor for signs of bleeding. Return to coumadin clinic on 07/11/20 documented in this encounter* Patient Instructions* Shy Osuna [facility] - 07/13/2019 11:00 AM EST Continue to monitor urine and stool. Continue to monitor for signs of bleeding. Return to clinic inApril. documented in this encounter* Patient Instructions* Henna Bravo [facility] - 04/26/2019 11:23 AM EDT Please take 7.5mg warfarin ( 1 1/2 tablet) today then return to your regular dosing of 7.5mg on Mondays and Fridays and 1 tablet (5mg) all other days. Continue to monitor for signs of bleeding. Return to coumadin coumadin after appointment with Dr Moore. documented in this encounter* Patient Instructions* Nighat Bazzi [facility] - 07/11/2020 11:00 AM EST Please take warfarin 10 mg (2 tablets) and warfarin 7.5 mg (1.5 tablets) tomorrow. Continue current dose of warfarin as instructed on dosing calendar provided - 7.5 mg every Thursday, Thursday and Thursday and 5 mg all other days. Notify clinic when you return from [place]. Continue to monitor urine and stool for signs and symptoms of bleeding. documented in this encounter History of Present Illness * Nighat Bazzi [facility] - 04/05/2019 11:02 AM EDT Fingerstick INR [...] physician. documented in this encounter* Nighat Bazzi [facility] - 05/30/2019 12:08 PM EDT Fingerstick INR drawn per clinic protocol. Patient states no visible blood in urine and no black tarry stool. Denies any missed doses of warfarin. Carvedilol increased per predictive maintenance technician. Will continuecurrent warfarin regimen and recheck INR in 4 week(s). Patient acknowledges working in consult agreement with pharmacist as referred by his/her physician. documented in this encounter* Henna Bravo RP - 06/27/2019 2:15 PM EST Fingerstick INR drawn per clinic protocol. Patient states no visible blood in urine and no black tarry stool. Denies any missed doses of warfarin. No change in other maintenance medications or in diet. Will continue current warfarin regimen and recheck INR in 2 week(s) prior to leaving for [place] on 07/15/19 through October 2019. Patient saw Dr Moore today and declines BP and weight check. Patientwas instructed to discontinue mestinon and increase losartan to 100mg daily. Patient acknowledges working in consult agreement with pharmacist as referred by his/her physician. documented in this encounter* Shy Osuna [facility] - 11/07/2019 10:30 AM EDT Patient denies fever or respiratory syptoms. Recent Travel Screening and Travel History documentation: Travel Screening No screening recorded since 11/06/19 1030 Travel History Travel since 10/09/19 No documented travel since 10/09/19 Patient states no visible blood in urine and no black tarry stool. No change in other medications. Will return to clinic in [address] Yoli thompson. Patient was in [place] and doctor was dosing warfarin there. Patient was taking 10 mg daily for 2 weeks and INR was 4.3 (3-9-20). Since then patient has been taking 7.5 mg on M,W,F and 5 mg all other days. Patient states she had a lot of problems with orthostatic3 hypotension while in [place] also. Patient had a heart cath while in [place], an Echo and a PETscan that showed a valve problem. Patient will continue her increased dosage from [place] of warfarin 7.5 mg on M,W,F and [...] PharmD documented in this encounter* Shy Osuna RPH - 01/25/2020 11:00 AM EDT Patient states [...] Accepted: 2 Time Spent (min): 30 Shy N Pierron, PharmD documented in this encounter* Nighat Bazzi [facility] - 02/14/2020 3:00 PM EDT Patient states [...] and 5 mg all other days.Saw patient CURBSIDE. CLINICAL PHARMACY CONSULT: MED RECONCILIATION/REVIEW ADDENDUM For Pharmacy Admin Tracking Only PHSO: Yes Total # of Interventions Recommended: 1 - Updated Order #: 1 Updated Order Reason(s): Other - Maintenance Safety Lab Monitoring #: 1 Total Interventions Accepted: 2 Time Spent (min): 30 Nighat Bazzi rain [facility] Clinical Pharmacy documented in this encounter* Bethany Carbajal RN - 04/06/2020 11:35 AM EDT Patient leaving floor at this time via wheelchair. Belongings in hand. * Bethany Carbajal RN - 04/06/2020 11:21 AM EDT [...] the Cx, 60-70% proximal RCA stenosis. Cancer ([facility]) breast cancer bilateral mastectomy Chronic cough 06/21/2012 COPD (chronic obstructive pulmonary disease) ([facility]) H/O cardiac catheterization 04/27/15 LMCA: Normal 0% [...] hernia History of blood clots 2007 had [place] filter put in by Dr. Alexander History of DVT (deep vein thrombosis) 1989 Hx of 5 History of pulmonary embolus (PE) 2007 She has a known gene deficiency/hypercoag state Hx of blood clots Hyperlipidemia Hypertension Hyperthyroidism CARISA on CPAP 11/19/2015 Pacemaker 03/04/2017 Dr. Espana [employer] Pulmonary hypertension (HCC) patient states mild S/P cardiac cath 02/13/2012 EF >55%. Patent 1st diagonal stent. 50-60% proximal RCA stenosis. S/P cardiac cath 03/20/2017 PCI Ulcer in stomach Unspecified sleep apnea uses C Pap mx CURRENT ALLERGIES: Latex; Droxidopa; Acetaminophen-codeine; Tylenol with codeine [acetaminophen-codeine]; Gold; Nickel; Seasonal; Beaver; and Gold-containing drug products REVIEW OF SYSTEMS: [...] mid LAD in stent stenosis DIAGNOSTIC CARDIAC BALANCE WHEEL HAND FILER PROCEDURE 2009 LMCA-normal, LAD-patent stent, CX-normal, RCA-30%,EF55-60% ENDOSCOPY, COLON, DIAGNOSTIC EYE SURGERY bilateral cataracts HYSTERECTOMY PARTIAL JOINT REPLACEMENT Right 01/31/13 knee JOINT REPLACEMENT Right 01/2013 KNEE ARTHROSCOPY Right KNEE SURGERY Right 12/2013 scraped knee cap PACEMAKER INSERTION Left 03/04/2017 PACEMAKER INSERTION PERMANENT performed by Reynold Gunn MD at [facility] OR [place] SURGERY Right VENA CAVA [...] mouth daily Coumadin Clinic: 7.5 mg Mon, Thu; 5 t wed thus sat sun mg [...] therapy Priority: High PAF (paroxysmal atrial fibrillation) ([facility]) 04/02/2020 Priority: High Essential hypertension 12/19/2019 Priority: High Dysautonomia orthostatic hypotension syndrome ([facility]) 05/30/2019 Priority: High Stage 2 moderate COPD by GOLD classification ([facility]) Priority: Low Chronic kidney disease 03/10/2017 Priority: Low CARISA on CPAP 11/19/2015 Priority: Low MTHFR mutation ([facility]) 03/22/2015 Priority: Low 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 Lambert clearly has paroxysmalatrial fibrillation, and given what appears to be a rate control failure, I think he would potentially benefit from Sotalol loading. Because of her renal function, ruth plan to continue her Sotalol to 120 [...] further assistance. Sincerely, Toni Moore MD, MS, F.A.C.C. [facility] Curing Oven Attendant [address] [place] [phone] , I believe that the risk of [...] of the following organ systems was limited: Vitals/Constitutional/EENT/Resp/CV/GI//MS/Neuro/Skin/Xjlo-Mhpjf-Kwm. Pursuant to the emergency declaration under the [...] used to authenticate this note. * Henna Bravo, [facility] - 04/06/2020 6:50 AM EDT [facility] Clinical Pharmacy Note Warfarin consult [...] within therapeutic range. Thank you, Henna Bravo, Stephanie.Ph., 04/06/2020,6:50 AM * Penelope Chen RN - 04/05/2020 7:00 PM EDT Patient [...] the Cx, 60-70% proximal RCA stenosis. Cancer ([facility]) 1989,1991 breast cancer bilateral mastectomy Chronic cough 06/21/2012 COPD (chronic obstructive pulmonary disease) ([facility]) H/O cardiac catheterization 04/27/15 LMCA: Normal 0% [...] CARISA on CPAP 11/19/2015 Pacemaker 03/04/2017 Dr. Espana [employer] Pulmonary hypertension (HCC) patient states mild S/P cardiac cath 02/13/2012 EF >55%. Patent 1st diagonal stent. 50-60% proximal RCA stenosis. S/P cardiac cath 03/20/2017 PCI Ulcer in stomach Unspecified sleep apnea uses C Pap mx CURRENT ALLERGIES: Latex; Droxidopa; Acetaminophen-codeine; Tylenol with codeine [acetaminophen-codeine]; Gold; Nickel; Seasonal; Beaver; and Gold-containing drug products REVIEW OF SYSTEMS: [...] mid LAD in stent stenosis DIAGNOSTIC CARDIAC BALANCE WHEEL HAND FILER PROCEDURE 2009 LMCA-normal, LAD-patent stent, CX-normal, RCA-30%,EF55-60% ENDOSCOPY, COLON, DIAGNOSTIC EYE SURGERY bilateral cataracts HYSTERECTOMY PARTIAL JOINT REPLACEMENT Right 01/31/13 knee JOINT REPLACEMENT Right 01/2013 KNEE ARTHROSCOPY Right KNEE SURGERY Right 12/2013 scraped knee cap PACEMAKER INSERTION Left 03/04/2017 PACEMAKER INSERTION PERMANENT performed by Reynold Gunn MD at [facility] OR PATELLA SURGERY Right VENA CAVA [...] therapy Priority: High PAF (paroxysmal atrial fibrillation) ([facility]) 04/02/2020 Priority: High Essential hypertension 12/19/2019 Priority: High Dysautonomia orthostatic hypotension syndrome ([facility]) 05/30/2019 Priority: High Stage 2 moderate COPD by GOLD classification ([facility]) Priority: Low Chronic kidney disease 03/10/2017 Priority: Low CARISA on CPAP 11/19/2015 Priority: Low MTHFR mutation ([facility]) 03/22/2015 Priority: Low 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 02/22/2015 Priority: Low S/P coronary artery stent placement on 03/20/17 12/18/2014 Priority: Low Chronic diastolic CHF (congestive heart failure), NYHA class 3 (HCC) 12/18/2014 Priority: Low CAD (coronary artery disease) [...] further assistance. Sincerely, Toni Moore MD, MS, F.A.C. [facility] Curing Oven Attendant [address] [place], [place] [id number] , I believe that the risk of [...] the Cx, 60-70% proximal RCA stenosis. Cancer ([facility]) 1989,1991 breast cancer bilateral mastectomy Chronic cough 06/21/2012 COPD (chronic obstructive pulmonary disease) ([facility]) H/O cardiac catheterization 04/27/15 LMCA: Normal 0% [...] CARISA on CPAP 11/19/2015 Pacemaker 03/04/2017 Dr. Espana [employer] Pulmonary hypertension (HCC) patient states mild S/P cardiac cath 02/13/2012 EF >55%. Patent 1st diagonal stent. 50-60% proximal RCA stenosis. S/P cardiac cath 03/20/2017 PCI Ulcer in stomach Unspecified sleep apnea uses C Pap mx CURRENT ALLERGIES: Latex; Droxidopa; Acetaminophen-codeine; Tylenol with codeine [acetaminophen-codeine]; Gold; Nickel; Seasonal; Beaver; and Gold-containing drug products REVIEW OF SYSTEMS: [...] mid LAD in stent stenosis DIAGNOSTIC CARDIAC BALANCE WHEEL HAND FILER PROCEDURE 2009 LMCA-normal, LAD-patent stent, CX-normal, RCA-30%,EF55-60% ENDOSCOPY, COLON, DIAGNOSTIC EYE SURGERY bilateral cataracts HYSTERECTOMY PARTIAL JOINT REPLACEMENT Right 01/31/13 knee JOINT REPLACEMENT Right 01/2013 KNEE ARTHROSCOPY Right KNEE SURGERY Right 12/2013 scraped knee cap PACEMAKER INSERTION Left 03/04/2017 PACEMAKER INSERTION PERMANENT performed by Reynold Gunn MD at [facility] OR PATELLA SURGERY Right VENA CAVA FILTER [...] therapy Priority: High PAF (paroxysmal atrial fibrillation) ([facility]) 04/02/2020 Priority: High Essential hypertension 12/19/2019 Priority: High Dysautonomia orthostatic hypotension syndrome ([facility]) 05/30/2019 Priority: High Atrial fibrillation ([facility]) 04/03/2020 Stage 2 moderate COPD by GOLD classification ([facility]) Chronic kidney disease 03/10/2017 CARISA on CPAP 11/19/2015 MTHFR mutation ([facility]) 03/22/2015 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 02/22/2015 S/P coronary artery stent placement on 03/20/17 12/18/2014 Chronic diastolic CHF (congestive heart failure), NYHA class 3 ([facility]) 12/18/2014 CAD (coronary artery disease) 03/03/2014 History of pulmonary embolus (PE) Bronchial asthma 06/21/2012 Pulmonary hypertension (HCC) 02/06/2012 PLAN: Ms. Lambert clearly has paroxysmalatrial [...] further assistance. Sincerely, Toni Moore MD, MS, Melanie.Rufina. [facility] Curing Oven Attendant [address] [place] [address] , I believe that the risk of significant morbidity and mortality related to the patient's current medical conditions are: Intermediate. The documentation recorded by the scribe, accurately and completely reflects the services I personally performed and the decisions made by me. Toni Moore MD, MS, Kellie April 04, 2020 * Tracy Moore RN - 04/04/2020 12:13 PM EDT EKG faxed to Dr. Moore office at this time. Director Marketing also called and notified of sticky note from pharmacy about dosing for Sotolol. Will continue to monitor. * Nighat Bazzi [facility] - 04/04/2020 10:55 AM EDT [facility] Inpatient Medication Education Note Patient admitted for sotalol loading. Medications reviewed with the patient include: sotalol (patient education monograph provided), Spiriva, Symbicort, warfarin. Patient is seen at [facility] medication management clinic for warfarin monitoring. Patient [...] feelings of SOB have gotten much better. Director Marketing updated patient that we do not carryDaliresp and family will have to bring in her supply. She states she will be fine without it for a few days. * Henna Bravo [facility] - 04/04/2020 8:30 AM EDT [facility] Department Clinical Pharmacy Note Warfarin consult [...] within therapeutic range. Thank you, Henna Bravo, Stephanie.Ph., 04/04/2020,8:30 AM * Analy Starks, [facility]ST - [place] - 04/04/2020 8:09 AM EDT Progress Note [...] Discharge plan is home Analy Starks APRN, MANAGER BEHAVIOR-C Associated attestation - Karsten Dyer MD - 04/04/2020 9:08 AM EDT Karsten Dyer M.D. PA / MANAGER BEHAVIOR Attestation Note 04/04/20 I personally evaluated and examined the patient [id number] in conjunction with the PA/MANAGER BEHAVIOR and agree with the management and dispostition of the patient. Please see the PA/MANAGER BEHAVIOR's note for full details.My carvalho findings are: [...] the assessment and plan as outlined by PA/MANAGER BEHAVIOR below Paroxysmal atrial fibrillation Admission for Sotalol [...] Patient has advance directives but not onfile. ROOF ASSEMBLER to monitor and assist with any needs or concerns as they arise. [address] * Roni Joaquin RD, CANDI - 04/04/2020 7:34 AM EDT Comprehensive Nutrition [...] loss Fluid Accumulation: No significant fluid accumulation Vocational Placement Specialist Strength: Not Performed Estimated Daily Nutrient Needs: Energy (kcal): 6778-9928(22-27); Weight Used for Energy Requirements: Current Protein (g): 63-68(1.2-1.3); Weight Used for Protein Requirements: [place] Fluid (ml/day): 1700; Weight Used for Fluid Requirements: Current Nutrition Related Findings: missing teeth and mouth sore Wounds: None Current Nutrition Therapies: DIET CARDIAC; Anthropometric Measures: Height: 5' 3 (160 cm) Current Body Weight: 138 lb 1.6 oz (62.6 kg) Admission Body Weight: 137 lb 8 oz (62.4 kg) Usual Body Weight: 135 lb (61.2 kg) [place] Body Weight: 115 lbs; % [place] Body Weight 120.1 % BMI: 24.5 Adjusted [...] Weight Discharge Planning: Continue current diet Contact: [id number] * May Contreras RN - 04/04/2020 3:15 [...] and email to Dr. Moore. * May Contreras RN - 04/03/2020 7:34 PM EDT Call [...] wheelchair. documented in this encounter* Nighat Bazzi RPH - 05/28/2020 10:30 AM EDT [employer] ANTICOAGULATION Referring Doctor: Yoli GOAL [...] RPh documented in this encounter* Henna Bravo RPH - 06/25/2020 11:00 AM EST [facility] Medication Management ANTICOAGULATION Referring Doctor: Dr Moore [...] bruise free. Patient will be seeing her video specialist in [place] on Thursday. Patient is having knee pain at this time. Patient was referred by Dr Cobian, ENT to Dr Garland Vincent, ENT at [facility] for ongoing sinus concerns (DX laryngopharyngeal reflux disease).Dr Vincent has discontinued all nasal medications at this time. Patient will be having Clarifix sinus procedure on 07/05/20 which requires a 5 day hold of warfarin. With confirmation from Dr Moore,patient will not bridge with lovenox due to bleeding risk despite CHADS score of 5. Dr Moroe discontinued midodrine and carvedilol a few weeks ago . Last dose of warfarin will be Friday 06/29. Patient will restart warfarin on evening of procedure (approved by Dr Vincent's office) and return to coumadin clinic 6 days later. Patient and spouse plan to leave for [place] in early July after clearance from Dr Vincent. Calendar of instruction provided to patient with details for warfarin hold [facility]. Patient acknowledges working in consult agreement with [...] Bravo RPh documented in this encounter* Shy Osuna, [facility] - 07/13/2019 11:00 AM EST Patient states no visible blood in urine and no black tarry stool. No change in other medications. Will return to clinic in November. Patient is leaving for [place] and won't return until November. Dr Beck Campos monitors her warfarin while she is in [place]. Patient complains that noone checks her BP or weight when she is here. Last note states she refused BP but patient states she has been having problems with BP a nd other pharmacists do not take her BP. Patient will take warfarin 7.5 mg today then continue current dosage of 1.5 tablets for 7.5 mg on M,F and whole 5 mg tablet all other days. documented in this encounter* Henna Bravo [facility] - 04/26/2019 11:57 AM EDT Fingerstick INR [...] physician. documented in this encounter* Nighat Bazzi [facility] - 07/11/2020 11:00 AM EST [facility] Medication Management ANTICOAGULATION Referring Doctor: Yoli GOAL [...] this afternoon that she cannot miss (to pickler helper a partial). I encouraged patient to go to ED after dentist appt. I also spoke to patient's who accompanied her and I recommended ED visit due to patient's symptoms. Patient will take warfarin 10 mg today and warfarin 7.5 mg tomorrow. Patient is leaving for [place] on Thursday and will be there until November. Patient will notify clinic when she returns from [place]. Patient acknowledges working in consult agreement with [...] mutation (HCC) Disturbances of sulphur-bearing amino-acid metabolism 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 History of pulmonary embolus (PE) Personal history of pulmonary embolism 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 History of pulmonary embolus (PE) Personal history of pulmonary embolism Diagnosis Essential hypertension Unspecified essential hypertension ASHD (arteriosclerotic heart disease) Coronary atherosclerosis of unspecified type of vessel, [place] or graft Chronic diastolic congestive heart failure (HCC) Chronic diastolic heart failure History of DVT (deep vein thrombosis) Personal history of venous thrombosis and embolism Cardiac pacemaker in situ 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 Coronary artery disease involving [place] coronary artery of [place] heart without angina pectoris History of pulmonary embolus (PE) Personal history of pulmonary embolism 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 History of pulmonary embolus (PE) Personal history of pulmonary embolism Diagnosis 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 ASHD (arteriosclerotic heart disease) Coronary atherosclerosis of unspecified type of vessel, [place] or graft Chronic diastolic congestive heart failure [...] mutation (HCC) Disturbances of sulphur-bearing amino-acid metabolism 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 Coronary artery disease involving [place] coronary artery of [place] heart without angina pectoris History of pulmonary embolus (PE) Personal history of pulmonary embolism 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 History of pulmonary embolus (PE) Personal history of pulmonary embolism 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 Coronary artery disease with stable angina pectoris, unspecified vessel or lesion type, unspecifiedwhether [place] or transplanted heart (HCC) History of pulmonary embolus (PE) Personal history of pulmonary embolism Reason for Referral StatusReasonSpecialtyDiagnoses / ProceduresReferred By ContactReferred To ContactClosed Diagnoses Essential hypertension ASHD (arteriosclerotic heart disease) Chronic diastolic congestive heart failure (HCC) History of DVT (deep vein thrombosis) Cardiac pacemaker in situ Procedures Tilt table test HC TILT STUDY - EPS Toni Moore MD [address] [place] [id number] SpecialtyDiagnoses / ProceduresReferred By ContactReferred To ContactCT IMAGING Diagnoses Spinal stenosis of lumbar region with neurogenic claudication Procedures CT LUMBAR SPINE WO IVCON CT LUMBAR SPINE W/O CONTRAST MATERIAL Ana Maria Amato, [address] [place] [address] Ct Imaging Referral IDStatusReasonStart DateExpiration DateVisits RequestedVisits [id number] Auto-Generated Referral /[id number] / ProceduresReferred By ContactReferred To ContactNeurology Diagnoses Numbness and tingling of right leg Procedures CONSULT TO NEUROLOGY OFFICE/OUTPATIENT [facility] 60-74 MINUTES Nguyễn Jean MD [address] [place] [address] Referral IDStatusReasonStart DateExpiration DateVisits RequestedVisits [id number] PCP Requested Referral /[id number] / ProceduresReferred By ContactReferred To ContactRadiology Diagnoses History of DVT (deep vein thrombosis) Pain of left calf Procedures VL DUP LOWER EXTREMITY VENOUS BILATERAL Muriel Deal PA-C [address] [place] [address] Referral IDStatusReasonStart DateExpiration DateVisits RequestedVisits [id number] Required - RTA/[id number] / ProceduresReferred By ContactReferred To ContactGastroenterology Diagnoses Gastroesophageal reflux disease, unspecified whether esophagitis present Procedures Esophagogastroduodenoscopy (EGD) w Dilation TTS AR ESOPHAGOGASTRODUODENOSCOPY TRANSORAL DIAGNOSTIC AR EGD TRANSORAL BIOPSY SINGLE/[place] [address] [address] [place] [address] Referral IDStatusReasonStart DateExpiration DateVisits RequestedVisits [id number]/13/20248/ Hospital Course Note MR#: [id number] [facility] Pt. Name: Leyla Sequeira Admitted: 04/12/2020 Discharged: [...] 2. Bilateral nasal endoscopy Surgeon: Carlton Resident/Fellow/Other Oral And Maxillofacial Pathologist: None Anesthesia: General endotracheal anesthesia Estimated Blood [...] 2. Bilateral nasal endoscopy Surgeon: Carlton Resident/Fellow/Other Oral And Maxillofacial Pathologist: None Anesthesia: General endotracheal anesthesia Estimated Blood [...] Last Updated: 05-Jul-2020 12:44 by Garland Vincent) Chief Complaint * 1. Rhinorrhea / rhinitis [...] hypotension May 24 1:20pm Medications Administered Section Medication OrderMAR ActionAction DateDoseRateSite iron sucrose 300 mg in NaCl 0.9% 250 mL (VENOFER) 300 mg, INTRAVENOUS, at 166.67 mL/hr, Administer over 90 Minutes, DIRECTED, 3 doses, Starting onThu 04/24/22 at 1301, Until Discontinued, Please complete [...] 100 or TSAT is less than 20., AMBMED ORDERS New Bag/Syringe/Sytbwf6304/24/2022 1:30 PM RSS576 mg166.67 mL/hrMedication Order MAR ActionAction DateDoseRateSite iron sucrose 300 mg in NaCl 0.9% 250 mL (VENOFER) 300 mg, INTRAVENOUS, at 166.67 mL/hr, Administer over 90 Minutes, DIRECTED, 3 doses, Starting onT 04/24/22 at 1301, Until Discontinued, Please complete [...] 100 or TSAT is less than 20., AMBMED ORDERS New Bag/Syringe/Hdewpd2304/28/2022 1:52 PM VUD172 mg166.67 mL/hrNew Bag/Syringe/Umuwwe2504/24/2022 1:30 PM [id number] mg166.67 mL/hrMedication OrderMAR ActionAction DateDoseRateSite lidocaine (PF) 10 mg/mL (1 %) 4 mL injection (XYLOCAINE) 4 mL, Injection - FOR ORTHO USE ONLY, ONE TIME INJECTION, 1 dose, Starting on 03/31/22 at 1617, Until 03/31/22 at 1617 Given03/31/2022 4:17 PM EDT4 Gavino Monterrosocatbraydon YuMAR ActionAction Date DoseRateSite iron sucrose 300 mg in NaCl 0.9% 250 mL (VENOFER) 300 mg, INTRAVENOUS, at 166.67 mL/hr, Administer over 90 Minutes, DIRECTED, 3 doses, Starting onThu 04/24/22 at 1301, Until 04/30/22 at 1452, [...] less than 20., AMB MED ORDERS New Bag/Syringe/Vayjeb7004/30/2022 1:22 PM TBR720 mg166.67 mL/hrNew Bag/Syringe/Xsdgdd1904/28/2022 1:52 PM RAL471 mg166.67 mL/hrNew Bag/Syringe/Bottle 04/24/2022 1:30 PM WVM229 mg166.67 mL/hr Additional Source Comments INFORMATION SOURCE (unrecogn ized section and content) DATE CREATED AUTHOR 02/10/2018 [facility] DATE CREATED AUTHOR AUTHOR'S ORGANIZ ATION 04/17/2020 [facility] DATE CREATED AUTHOR AUTHOR'S ORGANIZ ATION 07/11/2020 [facility] DATE CREATED AUTHOR AUTHOR'S ORGANIZ ATION 07/18/2021 [facility] DATE CREATED AUTHOR AUTHOR'S ORGANIZ ATION 08/13/2021 [facility] DATE CREATED AUTHOR AUTHOR'S ORGANIZ ATION 01/21/2022 [facility] DATE CREATED AUTHOR AUTHOR'S ORGANIZ ATION 07/06/2022 [facility] DATE CREATED AUTHOR AUTHOR'S ORGANIZ ATION 07/16/2022 [employer] DATE CREATED AUTHOR AUTHOR'S ORGANIZ ATION 05/23/2023 [facility] DATE CREATED AUTHOR AUTHOR'S ORGANIZ ATION 06/22/2023 [facility] DATE CREATED AUTHOR AUTHOR'S ORGANIZ ATION 07/20/2023 [facility] DATE CREATED AUTHOR AUTHOR'S ORGANIZ ATION 12/01/2023 [facility] DATE CREATED AUTHOR AUTHOR'S ORGANIZ ATION 01/16/2024 [facility] DATE CREATED AUTHOR AUTHOR'S ORGANIZ ATION 04/10/2024 [facility] DATE CREATED AUTHOR AUTHOR'S ORGANIZ ATION 05/06/2024 [facility] DATE CREATED AUTHOR AUTHOR'S ORGANIZ ATION 09/18/[address] [facility] DATE CREATED AUTHOR AUTHOR'S ORGANIZ ATION 01/15/[address] [facility] DATE CREATED AUTHOR AUTHOR'S ORGANIZ ATION 01/29/2025 [facility] DATE CREATED AUTHOR AUTHOR'S ORGANIZ ATION 03/10/2025 [facility] DATE CREATED AUTHOR AUTHOR'S ORGANIZ ATION 04/02/2025 [facility] DATE CREATED AUTHOR AUTHOR'S ORGANIZ ATION 05/04/2025 [facility] DATE CREATED AUTHOR AUTHOR'S ORGANIZ ATION 06/13/2025 [facility] DATE CREATED AUTHOR AUTHOR'S ORGANIZ ATION 06/15/2025 [facility] Reason for Visit (unrecogniz ed section and content) StatusReasonSpecialtyDiagnoses / ProceduresReferred By ContactReferred To ContactClosed Diagnoses Essential hypertension ASHD (arteriosclerotic heart disease) Chronic diastolic congestive heart failure (HCC) History of DVT (deep vein thrombosis) Cardiac pacemaker in situ Procedures Tilt table test HC TILT STUDY - EPS Toni Moore MD [address] [place] [address] ReasonCommentsTachycardiapt states she feels like her heart is racing, onset last nightShortness of BreathReasonCommentsFollow Uplow back painReasonComments ResultsSpecialtyDiagnoses / ProceduresReferred By ContactReferred To ContactCT IMAGING Diagnoses Spinal stenosis of lumbar region with neurogenic claudication Procedures CT LUMBAR SPINE WO IVCON CT LUMBAR SPINE W/[place] [address] [place] [address] Ct Imaging Referral IDStatusReasonStart DateExpiration DateVisits RequestedVisits [id number] Auto-Generated Referral /[id number] PatientSpinal stenosis of lumbar region, unspecified whether neurogenic claudication presentSpecialtyDiagnoses / ProceduresReferred By ContactReferred To Contact Diagnoses Spinal stenosis of lumbar region, unspecified whether neurogenic claudication present Lumbar radiculopathy, chronic Spinal stenosis of lumbar region with neurogenic claudication Procedures CONSULT TO SPINE SURGERY OFFICE/OUTPATIENT [facility] 60-74 [place] [address] [place] [address] Referral IDStatusReasonStart DateExpiration DateVisits RequestedVisits [id number]/16/20228/[id number]z Work Services ReasonCommentsNon-Chemotherapy TreatmentReasonCommentsPatient QuestionPatient is wondering if she needs to have a covid test before her procedure on the , however there is no covid order put through so the call center called to double check but patient hung up on both of us, needs a call back to inform her if she needs a covid test or notReasonCommentsEstablished PatientFollow UpKnee PainKnee ReplacementReasonCommentsBenefits InvestigationReasonCommentsCoPat StartReason CommentsCoPat AgencyReasonCommentsOutside Labs ResultsCopatReasonCommentsPost Op DOS: 05/02/22ReasonOnset DateCommentsRefill Jqvdanw24/06/2022ReasonCommentsHold CoPatLab OrdersReasonCommentsAppointmenthohn removalReasonCommentsPost OpDOS 05/02/22 ARTHROTOMY 8 WEEKSReasonCommentsPatient UpdateSpecialtyDiagnoses / ProceduresReferred By ContactReferred To ContactRadiology Diagnoses History of DVT (deep vein thrombosis) Pain of left calf Procedures VL DUP LOWER EXTREMITY VENOUS BILATERAL Muriel Deal PA-C [address] [place] [address] Referral IDStatusReasonStart DateExpiration DateVisits RequestedVisits [id number] Required - RTA4//[id number] Check Pt reports hit her leg on her Rolator yesterday and has been bleeding to left lower leg. When she takes band aids off bleeding resumes. On coumadin.Reason CommentsRadio Gen RMPReasonCommentsRadio Gen RMPSpecialtyDiagnoses / Procedures Referred By ContactReferred To ContactXR IMAGING Diagnoses S/P revision of total knee, left Procedures XR KNEE POST OP 3V AP/LAT/MERCHANT RIGHT RADIOLOGIC EXAMINATION KNEE 3 VIEWS Cooper Stephens PA-C [address] [place] [address] Xr Imaging [place] [address] Referral IDStatusReasonStart DateExpiration DateVisits RequestedVisits [id number] Auto-Generated Referral /[id number] Gen RMPRadiology Service Progress NotePATIENT NAME: Leyla LambertMRN: [id number] OF SERVICE: July 02, 2022TIME: 12:11 PMPATIENT IDENTITY VERIFICATION COMPLETED USING TWO (2) IDENTIFIERS: Name and Date of confirmed by patient verbally.FALL SCREENING: Has the patient had 2 falls in the last year or 1 fall with injury or currently using an Ambulatory Assistive Device (Walker, Cane, Wheelchair, Crutches, etc.)? NoPATIENT GENDER DATA: Female. 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 PT states that she has been feeling very weak and tired, Pts PCP wanted her to come get checked out. PT denies any chestpain or shortness of breath. PT has a hx of HTN and has been taking medications for this. 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.SpecialtyDiagnoses / Procedures Referred By ContactReferred To Contact Diagnoses Dysphagia, unspecified type Procedures N/A Donnie Thorpe, [address] [place] [address] [address] [address] [place] [address] Referral IDStatusM[facility] DateExpiration DateVisits RequestedVisits [id number]-vzUiptzhug f/uReasonOnset DateComments Med Wfxrux2510/10/2024ReasonOnset DateCommentsMed Usofky5210/26/2024ReasonComments Med RefillReasonCommentsFollow-upWound check stitches yesterday from Urgent care ReasonCommentsMedicare Annual Wellness Visit SubsequentwellnessReasonComments Follow-upEr f/uShortness of BreathReasonCommentsFollow-upHospital f/uReason CommentsFollow-upShortness of BreathReasonCommentsFollow-upDifficulty swallowing ReasonCommentsFollow-upF/upReasonCommentsPainReasonCommentsShortness of BreathPt reports SOB starting last night. Pt reports hx lung dz. Pt also reports I hit my left leg on mywalker and it bleed all night . Pt arived to ED from coumadin clinic with reported 1.2 INR from CC staffWound CheckReasonCommentsFallShortness of BreathFatigueSpecialtyDiagnoses / ProceduresReferred By ContactReferred To Contact Diagnoses Recurrent falls Larisa Reardon MD [address] [place] [address], [place] [address] Phone: tel: fax: [facility] [address] [place] [address] Referral IDStatusReasonStart DateExpiration DateVisits RequestedVisits [id number] f/upShortness of BreathReason CommentsCOPD2 month follow upReasonCommentsLeg SwellingBilateral lower leg swelling with pain for the last couple days. States she's been sob since the swe lling started. Was having her leg wounds checked by her home health nurse and recommended come to ER. Care Teams (unrecognized sec tion and content) Team Status: Active Member Role Status Dates Douglas Will MD Primary Care Provider Active Team Status: Inactive Member Role Status Dates Douglas Will MD Primary Care Provider Active HEMAL Haji-CEmergency ProviderActiveTeam MemberRelationshipSpecialty Start DateEnd Date Epi Andrews [address] [facility] [address] [place] [address] PCP - General04/10/16Team MemberRelationshipSpecialtyStart DateEnd Date Epi Andrews [address] [facility] [address] [place] [address] PCP - General04/10/16Team MemberRelationshipSpecialtyStart DateEnd Date Epi Andresw [address] [facility] [address] [place] [address] PCP - General04/10/16Team MemberRelationshipSpecialtyStart DateEnd Date Douglas Will [address] [place] [address] PCP - GeneralFamily Sgzkqbbz40/13/21 Mary Rucker MD [address] [place] [address] Primary Staff PhysicianCardiology11/02/18Team MemberRelationshipSpecialtyStart DateEnd Date Douglas Will [address] [place] [address] PCP - Generalmily Ylcotzyt03/13/21 Mary Rucker MD [address] [place] [address] Primary Staff PhysicianCardiology11/02/18Team MemberRelationshipSpecialtyStart DateEnd Date Douglas Will [address] [place] [address] [facility] Onsxhyoc08/13/21 Mary Rucker MD [address] [place] [address] Primary Staff PhysicianCardiology11/02/18Team MemberRelationshipSpecialtyStart DateEnd Date Douglas Will [address] [place] [address] PCP - [facility] Jdhgsynv39/13/21 Mary Rucker MD [address] [place] [address] Primary Staff PhysicianCardiology11/02/18Team MemberRelationshipSpecialtyStart DateEnd Date Douglas Will [address] [place] [address] PCP - [facility] Itkpqogh05/13/21 Mary Rucker MD [address] [place] [address] Primary Staff PhysicianCardiology11/02/18Team MemberRelationshipSpecialtyStart DateEnd Date Douglas Will [address] [place] [address] PCP - [facility] Qkdqsvlc32/13/21 Mary Rucker MD [address], [place] [address] Primary Staff PhysicianCardiology11/02/18 Team Status: Inactive Member Role Status Dates Douglas Will MD Primary Care Provider Active Hari Danielformerly [facility] ProviderActiveTeam MemberRelationshipSpecialtyStart DateEnd Date Epi Andrews [address] [place] [address] PCP - General04/10/16Team MemberRelationshipSpecialtyStart DateEnd Date Epi Andrews [address] [place] [address] PCP - General04/10/16Team MemberRelationshipSpecialtyStart DateEnd Date Douglas Will [address] [place] [address] PCP - [facility] Hstpnoeo65/13/21 Mary Rucker MD [address], [place] [address] Primary Staff PhysicianCardiology11/02/18Team MemberRelationshipSpecialtyStart DateEnd Date Douglas Will [address] [place] [address] PCP - Generalmily Fgzyirtm98/13/21 Mary Rucker MD [address], [place] [address] Primary Staff PhysicianCardiology11/02/18Team MemberRelationshipSpecialtyStart DateEnd Date Epi Andrews [address] [facility] [address] [place], [place] [address] PCP - General04/10/16Team MemberRelationshipSpecialtyStart DateEnd Date Douglas Will MD [address] [place] [address] PCP - GeneralFamily Medicine02/24/22Team MemberRelationshipSpecialtyStart DateEnd Date Douglas Will MD [address] [place] [address] PCP - Generalmily Medicine02/24/22Team MemberRelationshipSpecialtyStart DateEnd Date Douglas Will [address] [place] [address] PCP - Generalmily Pdbujqvg75/13/21 Mary Rucker MD [address], [place] [address] Primary Staff PhysicianCardiology11/02/18 Emma Blackman MD [address] [place] [address] Pulmonary Disease04/16/[address] Toni Moore [address] [place] [address] Cardiology04/16/22Te MemberRelationshipSpecialtyStart DateEnd Date Douglas Will [address] [place] [address] PCP - GeneralFamily Vwexfpgd39/13/21 Mary Rucker MD [address] [place] [address] Primary Staff PhysicianCardiology11/02/18 Emma Blackman MD [address] [place] [address] Pulmonary Disease04/16/22 Toni Moore [address] [place] [address] Cardiology04/16/22Te MemberRelationshipSpecialtyStart DateEnd Date Douglas Will [address] [place] [address] PCP - Generalmily Qabgajcv89/13/21 Mary Rucker MD [address] [place] [address] Primary Staff PhysicianCardiology11/02/18 Emma Blackman MD [address] [place] [address] Pulmonary Disease04/16/22 Toni Moore [address] [place] [address] Cardiology04/16/22Te MemberRelationshipSpecialtyStart DateEnd Date Douglas Will [address] [place] [address] PCP - Generalmily Cpzhwdjl67/13/21 Mary Rucker MD [address] [place] [address] Primary Staff PhysicianCardiology11/02/18Team MemberRelationshipSpecialtyStart DateEnd Date Douglas Will [address] [place] [address] PCP - [facility] Dzmqnyjs21/13/21 Mary Rucker MD [address] [place] [address] Primary Staff PhysicianCardiology11/02/18 Emma Blackman MD [address] [place] [address] Pulmonary Disease04/16/22 Toni Moore [address] [place] [address] Cardiology04/16/22Te MemberRelationshipSpecialtyStart DateEnd Date Douglas Will [address] [place] [address] [facility] - [facility] Rcgcjekz95/13/21 Mary Rucker MD [address] [place] [address] Primary Staff PhysicianCardiology11/02/18 Emma Blackman MD [address] [place] [address] Pulmonary Disease04/16/22 Toni Moore [address] [place] [address] Cardiology04/16/22Te MemberRelationshipSpecialtyStart DateEnd Date Douglas Will [address] [place] [address] PCP - Generalmi Ldnvylcf67/13/21 Mary Rucker MD [address] [place] [address] Primary Staff PhysicianCardiology11/02/18 Emma Blackman MD [address] [place] [address] Pulmonary Disease04/16/22 [facility] Toni [address] [address] Cardiology04/16/22Team MemberRelationshipSpecialtyStart DateEnd Date Douglas Will [address] [place] [address] PCP - [facility]05/29/21 Mary Rucker MD [address] [place] [address] Primary Staff PhysicianCardiology11/02/18 Emma Blackman MD [address] [place] [address] Pulmonary Disease04/16/22 Toni Moore [address] [place] [address] Cardiology04/16/22Team MemberRelationshipSpecialtyStart DateEnd Date Douglas Will MD [address] [place] [address] [facility] - [facility]02/24/22Team MemberRelationshipSpecialtyStart DateEnd Date Douglas Will MD [address] [place] [address] PCP - GeneralFamily Medicine02/24/22Team MemberRelationshipSpecialtyStart DateEnd Date Douglas Will [address] [place] [address] PCP - Generalmily Fjyexpag56/13/21 Mary Rucker MD [address] [place] [address] Primary Staff PhysicianCardiology11/02/18 Emma Blackman MD [address] [place] [address] Pulmonary Disease04/16/22 Toni Moore [address] [place] [address] Cardiology04/16/22Te MemberRelationshipSpecialtyStart DateEnd Date Douglas Will [address] [place] [address] PCP - [facility] Fednxdli49/13/21 Mary Rucker MD [address] [place] [address] Primary Staff PhysicianCardiology11/02/18 Emma Blackman MD [address] [place] [address] Pulmonary Disease04/16/22 Toni Moore [address] [place] [address] Cardiology04/16/22Te MemberRelationshipSpecialtyStart DateEnd Date Douglas Will [address] [place] [address] PCP - Generalmily Fkabjura70/13/21 Mary Rucker MD [address] [place] [address] Primary Staff PhysicianCardiology11/02/18 Emma Blackman MD [address] [place] [address] Pulmonary Disease04/16/22 Toni Moore [address] [place] [address] Cardiology04/16/22Team MemberRelationshipSpecialtyStart DateEnd Date Douglas Will MD [address] [place] [address] PCP - GeneralFamily Medicine02/24/22Te MemberRelationshipSpecialtyStart DateEnd Date Douglas Will MD [address] [place] [address] PCP - GeneralFamily Medicine02/24/22Te MemberRelationshipSpecialtyStart DateEnd Date Douglas Will [address] [place] [address] PCP - GeneralFamily Zdhxggpd19/13/21 Mary Rucker MD [address] [place] [address] Primary Staff PhysicianCardiology11/02/18 Emma Blackman MD [address] [place] [address] Pulmonary Disease04/16/22 Toni Moore [address] [place] [address] Cardiology04/16/22Team MemberRelationshipSpecialtyStart DateEnd Date Douglas Will [address] [place] [address] PCP - Generalmily Vhdmhahb33/13/21 Mary Rucker MD [address] [place] [address] Primary Staff PhysicianCardiology11/02/18 Emma Blackman MD [address] [place] [address] Pulmonary Disease04/16/22 Toni Moore [address] [place] [address] Cardiology04/16/22Team MemberRelationshipSpecialtyStart DateEnd Date Douglas Will MD [address] [place] [address] PCP - GeneralFamily Medicine02/24/22Team MemberRelationshipSpecialtyStart DateEnd Date Douglas Will [address] [place] [address] PCP - GeneralFamily Xgjtuesm69/13/21 Mary Rucker MD [address] [place] [address] Primary Staff PhysicianCardiology11/02/18 Emma Blackman MD [address] [place] [address] Pulmonary Disease04/16/22 Toni Moore [address] [place] [address] Cardiology04/16/22Team MemberRelationshipSpecialtyStart DateEnd Date Douglas Will MD [address] [place] [address] PCP - Generalmily Medicine02/24/22Te MemberRelationshipSpecialtyStart DateEnd Date Douglas Will MD [address] [place] [address] PCP - [facility]02/24/22Team MemberRelationshipSpecialtyStart DateEnd Date Epi Andrews PCP - GeneralCardiology01/05/910 Mary Rucker MD [address] [place], [place] [address] Primary Staff PhysicianCardiology11/02/18Te MemberRelationshipSpecialtyStart DateEnd Date Epi Andrews PCP - GeneralCardiology01/05/910 Mary Rucker MD [address] [place], [place] [address] Primary Staff PhysicianCardiology11/02/18Te MemberRelationshipSpecialtyStart DateEnd Date Douglas Will MD [address] [place] [address] [facility]02/24/22Te MemberRelationshipSpecialtyStart DateEnd Date Douglas Will [address] [place] [address] PCP - GeneralFamily Djwteklc96/13/21 aMry Rucker MD [address] [place] [address] Primary Staff PhysicianCardiology11/02/18 Emma Zabala MD [address] [place] [address] Pulmonary Disease04/16/22 Toni Moore MD [address] [place] [address] Cardiology04/16/22Te MemberRelationshipSpecialtyStart DateEnd Date Douglas Will [address] [place] [address] PCP - Generalmi Uojqaqlg67/13/21 Mary Rucker MD [address] [place] [address] Primary Staff PhysicianCardiology11/02/18 Emma Zabala MD [address] [place] [address] Pulmonary Disease04/16/22 Toni Moroe MD [address] [place] [address] Cardiology04/16/22Te MemberRelationshipSpecialtyStart DateEnd Date Douglas Will [address] [place] [address] PCP - Generalmily Hnwmjzup65/13/21 Mary Rucker MD [address] [place] [address] Primary Staff PhysicianCardiology11/02/18 Emma Zabala MD [address] [place] [address] Pulmonary Disease04/16/22 Toni Moore MD [address] [place] [address] Cardiology04/16/22Te MemberRelationshipSpecialtyStart DateEnd Date Douglas Will [address] [place] [address] PCP - GeneralFamily Qkxhjfqc31/13/21 Mary Rucker MD [address] [place] [address] Primary Staff PhysicianCardiology11/02/18Te MemberRelationshipSpecialtyStart DateEnd Date Douglas Will [address] [place] [address] PCP - GeneralFamily Nsnttqhq47/13/21 Mary Rucker MD [address] [place] [address] Primary Staff PhysicianCardiology11/02/18Te MemberRelationshipSpecialtyStart DateEnd Date Douglas Wlil MD [address] [place] [address] PCP - GeneralFamily Medicine12/16/23Team MemberRelationshipSpecialtyStart DateEnd Date Douglas Will MD [address] [place] [address] PCP - GeneralFamily Medicine12/16/23Team MemberRelationshipSpecialtyStart DateEnd Date Epi Andrews MD [address] [address] [place] [address] PCP - Qmwzotw67/2/20Team MemberRelationshipSpecialtyStart DateEnd Date Douglas Will MD [address] [place] [address] PCP - GeneralFamily Medicine12/16/23Team MemberRelationshipSpecialtyStart DateEnd Date Douglas Will MD [address] [place] [address] PCP - GeneralFamily Medicine12/16/23Team MemberRelationshipSpecialtyStart DateEnd Date Douglas Will MD [address] [place] [address] PCP - GeneralFamily Medicine12/16/23Team MemberRelationshipSpecialtyStart DateEnd Date Douglas Will MD [address] [place] [address] PCP - GeneralFamily Medicine02/24/22Team MemberRelationshipSpecialtyStart DateEnd Date Douglas Will MD [address] [place] [address] PCP - GeneralFamily Medicine12/16/23Team MemberRelationshipSpecialtyStart DateEnd Date Epi Andrews MD [address] [place] [address] PCP - Pqnuypn73/2/20Team MemberRelationshipSpecialtyStart DateEnd Date Epi Andrews MD [address] [place] [address] PCP - Tdoqunf03/2/20Team MemberRelationshipSpecialtyStart DateEnd Date Epi Andrews MD [address] [place] [address] PCP - Splecht62/2/20Team MemberRelationshipSpecialtyStart DateEnd Date Douglas Will MD [address] [place] [address] PCP - GeneralFamily Medicine12/16/23Team MemberRelationshipSpecialtyStart DateEnd Date Douglas Will MD [address] [place] [address] PCP - GeneralFamily Medicine12/16/23Team MemberRelationshipSpecialtyStart DateEnd Date Douglas Will MD PCP - GeneralFamily Wmjkksaj56/4/21Team MemberRelationshipSpecialtyStart DateEnd Date Douglas Will MD PCP - GeneralFamily Zvivigqc61/4/21Team MemberRelationshipSpecialtyStart DateEnd Date Douglas Will MD PCP - GeneralFamily Tqulzkje10/4/21Team MemberRelationshipSpecialtyStart DateEnd Date Douglas Will MD [address] [place] [address] PCP - GeneralFamily Medicine12/16/23Team MemberRelationshipSpecialtyStart DateEnd Date Douglas Will MD PCP - Generalmi Shfzqliq51/4/21Team MemberRelationshipSpecialtyStart DateEnd Date Douglas Will MD PCP - [facility] Klinpghb80/4/21 Team Status: Inactive Member Role Status Dates Douglas Will MD Primary Care Provider Active S tart: November 29, 2024 End: November 29Lexa Aguilar ProviderActiveStart: November 29, 2024 End: November 29, 2024Team MemberRelationshipSpecialtyStart DateEnd Date Douglas Will MD [address] [place] [address] PCP - Generalmily Medicine12/16/23Team MemberRelationshipSpecialtyStart DateEnd Date Douglas Will MD [address] [place] [address] PCP - Generalmily Medicine12/16/23Team MemberRelationshipSpecialtyStart DateEnd Date Douglas Will MD [address] [place] [address] PCP - GeneralFamily Medicine12/16/23Team MemberRelationshipSpecialtyStart DateEnd Date Douglas Will MD [address] [place] [address] PCP - GeneralFamily Medicine12/16/23Team MemberRelationshipSpecialtyStart DateEnd Date Douglas Will MD [address] [place] [address] PCP - GeneralFamily Medicine12/16/23Team MemberRelationshipSpecialtyStart DateEnd Date Douglas Will MD [address] [place] [address] PCP - GeneralFamily Medicine12/16/23Team MemberRelationshipSpecialtyStart DateEnd Date Douglas Will MD [address] [place] [address] PCP - GeneralFamily Medicine12/16/23Team MemberRelationshipSpecialtyStart DateEnd Date Douglas Will MD PCP - GeneralFamily Xiszsjba90/4/21Team MemberRelationshipSpecialtyStart DateEnd Date Douglas Will MD PCP - GeneralFamily Doqsjwgl04/4/21Team MemberRelationshipSpecialtyStart DateEnd Date Douglas Will MD PCP - GeneralFamily Ipszmxoy50/4/21Team MemberRelationshipSpecialtyStart DateEnd Date Douglas Will MD PCP - GeneralFamily Eznpzgin33/4/21Team MemberRelationshipSpecialtyStart DateEnd Date Douglas Will MD [address] [place] [address] PCP - GeneralFamily Medicine12/16/23Team MemberRelationshipSpecialtyStart DateEnd Date Douglas Will MD [address] [place] [address] PCP - GeneralFamily Medicine12/16/23Team MemberRelationshipSpecialtyStart DateEnd Date Douglas Will MD [address] [place] [address] PCP - GeneralFamily Medicine12/16/23Team MemberRelationshipSpecialtyStart DateEnd Date Douglas Will MD [address] [place] [address] PCP - GeneralFamily Medicine12/16/23Team MemberRelationshipSpecialtyStart DateEnd Date Douglas Will MD [address] [place] [address] PCP - GeneralFamily Medicine12/16/23Team MemberRelationshipSpecialtyStart DateEnd Date Douglas Will MD [address] [place] [address] PCP - Generalmily Medicine12/16/23Team MemberRelationshipSpecialtyStart DateEnd Date Douglas Will MD PCP - Generalmily Iilohrgz64/4/21Team MemberRelationshipSpecialtyStart DateEnd Date Douglas Will MD PCP - [facility] Scudwtld22/4/21Team MemberRelationshipSpecialtyStart DateEnd Date Douglas Will MD [address] [place] [address] PCP - [facility] Medicine12/16/23 Ke Marte MA [facility]01/20/25Team MemberRelationshipSpecialtyStart DateEnd Date Douglas Will MD [address] [place] [address] PCP - Generalmily Medicine12/16/23 Ke Marte MA Family Medicine01/20/25Team MemberRelationshipSpecialtyStart DateEnd Date Douglas Will MD [address] [place] [address] PCP - Generalmily Medicine12/16/23 Ke Marte MA Family Medicine01/20/25Team MemberRelationshipSpecialtyStart DateEnd Date Epi Andrews MD [address] [address] PCP - Hazvbny29/2/20Team MemberRelationshipSpecialtyStart DateEnd Date Douglas Will MD [address] [place] [address] PCP - GeneralFamily Medicine12/16/23 Ke Marte MA [address] [place] [address] Family Medicine01/20/25Team MemberRelationshipSpecialtyStart DateEnd Date Douglas Will MD [address] [place] [address] PCP - GeneralFamily Medicine02/24/22Team MemberRelationshipSpecialtyStart DateEnd Date Douglas Will MD [address] [place] [address] PCP - GeneralFamily Medicine02/24/22Team MemberRelationshipSpecialtyStart DateEnd Date Douglas Will MD [address] [place] [address] PCP - GeneralFamily Medicine12/16/23 Ke Marte MA [address] [place] [address] Family [facility]01/20/25Team MemberRelationshipSpecialtyStart DateEnd Date Douglas Will MD [address] [place] [address] PCP - GeneralFamily Medicine12/16/23 Ke Marte ME [address] [place] [address] Family [facility]01/20/25Team MemberRelationshipSpecialtyStart DateEnd Date Douglas Will MD [address] [place] [address] PCP - [facility] Medicine12/16/23 Ke Marte ME [address] [place] [address] [facility]01/20/25Team MemberRelationshipSpecialtyStart DateEnd Date Douglas Will MD [address] [place] [address] PCP - [facility] Medicine12/16/23 Ke Marte ME [address] [place] [address] [facility]01/20/25Team MemberRelationshipSpecialtyStart DateEnd Date Douglas Will MD [address] [place] [address] [facility] - [facility]02/24/22Team MemberRelationshipSpecialtyStart DateEnd Date Douglas Will MD [address] [place] [address] PCP - [facility]12/16/23 Ke Marte MA [address] [place] [address] Family Medicine01/20/25Team MemberRelationshipSpecialtyStart DateEnd Date Douglas Will MD [address] [place] [address] PCP - GeneralFamily Medicine02/24/22Team MemberRelationshipSpecialtyStart DateEnd Date Douglas Will MD [address] [place] [address] PCP - GeneralFamily Medicine12/16/23 Ke Marte MA [address] [place] [address] [facility]01/20/25Team MemberRelationshipSpecialtyStart DateEnd Date Douglas Will MD [address] [place] [address] PCP - GeneralFamily Medicine12/16/23 Ke Marte MA [address] [place] [address] Family [facility]01/20/25Team MemberRelationshipSpecialtyStart DateEnd Date Douglas Will MD [address] [place] [address] PCP - GeneralFamily Medicine02/24/22Team MemberRelationshipSpecialtyStart DateEnd Date Douglas Will MD [address] [place] [address] PCP - GeneralFamily Medicine02/24/22Team MemberRelationshipSpecialtyStart DateEnd Date Douglas Will MD PCP - [facility]12/16/23Team MemberRelationshipSpecialtyStart DateEnd Date Douglas Will MD PCP - [facility]12/16/23Team MemberRelationshipSpecialtyStart DateEnd Date Douglas Will MD [address] [place] [address] PCP - [facility]02/24/22 Team Status: Inactive Member Role Status Dates Douglas Will MD Primary Care Provider Active S tart: May 10, 2025 End: May 10Cb Conde ProviderActiveStart: May 10, 2025 End: May 10, 2025 Team Status: Inactive Member Role Status Dates Douglas Will MD Primary Care Provider Active S tart: May 24, 2025 End: May 24, 2025[facility]Cb [facility] ProviderActiveStart: May 24, 2025 End: May 24, 2025Team MemberRelationshipSpecialtyStart DateEnd Date Douglas Will MD [address] [place] [address] PCP - [facility]02/24/22Team MemberRelationshipSpecialtyStart DateEnd Date Douglas Will MD [address] [place] [address] PCP - [facility]02/24/22Team MemberRelationshipSpecialtyStart DateEnd Date Douglas Will MD [address] [place] [address] PCP - GeneralFamily Medicine02/24/22Team MemberRelationshipSpecialtyStart DateEnd Date Douglas Will MD [address] [place] [address] [facility] - [facility]02/24/22 Goals (unrecognized section and content) Goals may [...] or prosecute any alcohol or drug abuse patient.[facility] SystemIn the event this information is protected by the Federal Confidentiality of Alcohol and Drug Abuse Patient Records regulations: The Federal rules restrict any use of the information to criminally investigate or prosecute any alcohol or drug abuse patient.[facility] SystemIn the event this information is protected by the Federal Confidentiality of Alcohol and Drug Abuse Patient Records regulations: The Federal rules restrict any use of the information to criminally investigate or prosecute any alcohol or drug abuse patient.[facility] SystemIn the event this information is protected by the Federal Confidentiality of Alcohol and Drug Abuse Patient Records regulations: The Federal rules restrict any use of the information to criminally investigate or prosecute any alcohol or drug abuse patient.[facility] SystemIn the event this information is protected by the Federal Confidentiality of Alcohol and Drug Abuse Patient Records regulations: The Federal rules restrict any use of the information to criminally investigate or prosecute any alcohol or drug abuse patient.[facility] SystemIn the event this information is protected by the Federal Confidentiality of Alcohol and Drug Abuse Patient Records regulations: The Federal rules restrict any use of the information to criminally investigate or prosecute any alcohol or drug abuse patient.[facility] SystemIn the event this information is protected by the Federal Confidentiality of Alcohol and Drug Abuse Patient Records regulations: The Federal rules restrict any use of the information to criminally investigate or prosecute any alcohol or drug abuse patient.[facility] SystemIn the event this information is protected by the Federal Confidentiality of Alcohol and Drug Abuse Patient Records regulations: The Federal rules restrict any use of the information to criminally investigate or prosecute any alcohol or drug abuse patient.[facility] SystemIn the event this information is protected by the Federal Confidentiality of Alcohol and Drug Abuse Patient Records regulations: The Federal rules restrict any use of the information to criminally investigate or prosecute any alcohol or drug abuse patient.[facility] SystemIn the event this information is protected by the Federal Confidentiality of Alcohol and Drug Abuse Patient Records regulations: The Federal rules restrict any use of the information to criminally investigate or prosecute any alcohol or drug abuse patient.[facility] SystemIn the event this information is protected by the Federal Confidentiality of Alcohol and Drug Abuse Patient Records regulations: The Federal rules restrict any use of the information to criminally investigate or prosecute any alcohol or drug abuse patient.[facility] SystemIn the event this information is protected by the Federal Confidentiality of Alcohol and Drug Abuse Patient Records regulations: The Federal rules restrict any use of the information to criminally investigate or prosecute any alcohol or drug abuse patient.[facility] SystemIn the event this information is protected by the Federal Confidentiality of Alcohol and Drug Abuse Patient Records regulations: The Federal rules restrict any use of the information to criminally investigate or prosecute any alcohol or drug abuse patient.[facility] SystemIn the event this information is protected by the Federal Confidentiality of Alcohol and Drug Abuse Patient Records regulations: The Federal rules restrict any use of the information to criminally investigate or prosecute any alcohol or drug abuse patient.[facility] SystemIn the event this information is protected by the Federal Confidentiality of Alcohol and Drug Abuse Patient Records regulations: The Federal rules restrict any use of the information to criminally investigate or prosecute any alcohol or drug abuse patient.[facility] SystemIn the event this information is protected by the Federal Confidentiality of Alcohol and Drug Abuse Patient Records regulations: The Federal rules restrict any use of the information to criminally investigate or prosecute any alcohol or drug abuse patient.[facility] SystemIn the event this information is protected by the Federal Confidentiality of Alcohol and Drug Abuse Patient Records regulations: The Federal rules restrict any use of the information to criminally investigate or prosecute any alcohol or drug abuse patient.[facility] SystemIn the event this information is protected by the Federal Confidentiality of Alcohol and Drug Abuse Patient Records regulations: The Federal rules restrict any use of the information to criminally investigate or prosecute any alcohol or drug abuse patient.[facility] SystemIn the event this information is protected by the Federal Confidentiality of Alcohol and Drug Abuse Patient Records regulations: The Federal rules restrict any use of the information to criminally investigate or prosecute any alcohol or drug abuse patient.[facility] SystemIn the event this information is protected by the Federal Confidentiality of Alcohol and Drug Abuse Patient Records regulations: The Federal rules restrict any use of the information to criminally investigate or prosecute any alcohol or drug abuse patient.[facility] SystemIn the event this information is protected by the Federal Confidentiality of Alcohol and Drug Abuse Patient Records regulations: The Federal rules restrict any use of the information to criminally investigate or prosecute any alcohol or drug abuse patient.[facility] SystemIn the event this information is protected by the Federal Confidentiality of Alcohol and Drug Abuse Patient Records regulations: The Federal rules restrict any use of the information to criminally investigate or prosecute any alcohol or drug abuse patient.[facility] SystemIn the event this information is protected by the Federal Confidentiality of Alcohol and Drug Abuse Patient Records regulations: The Federal rules restrict any use of the information to criminally investigate or prosecute any alcohol or drug abuse patient.[facility] SystemIn the event this information is protected by the Federal Confidentiality of Alcohol and Drug Abuse Patient Records regulations: The Federal rules restrict any use of the information to criminally investigate or prosecute any alcohol or drug abuse patient.[facility] SystemIn the event this information is protected by the Federal Confidentiality of Alcohol and Drug Abuse Patient Records regulations: The Federal rules restrict any use of the information to criminally investigate or prosecute any alcohol or drug abuse patient.[facility] SystemIn the event this information is protected by the Federal Confidentiality of Alcohol and Drug Abuse Patient Records regulations: The Federal rules restrict any use of the information to criminally investigate or prosecute any alcohol or drug abuse patient.[facility] SystemIn the event this information is protected by the Federal Confidentiality of Alcohol and Drug Abuse Patient Records regulations: The Federal rules restrict any use of the information to criminally investigate or prosecute any alcohol or drug abuse patient.[facility] SystemIn the event this information is protected by the Federal Confidentiality of Alcohol and Drug Abuse Patient Records regulations: The Federal rules restrict any use of the information to criminally investigate or prosecute any alcohol or drug abuse patient.[facility] SystemIn the event this information is protected by the Federal Confidentiality of Alcohol and Drug Abuse Patient Records regulations: The Federal rules restrict any use of the information to criminally investigate or prosecute any alcohol or drug abuse patient.[facility] SystemIn the event this information is protected by the Federal Confidentiality of Alcohol and Drug Abuse Patient Records regulations: The Federal rules restrict any use of the information to criminally investigate or prosecute any alcohol or drug abuse patient.[facility] SystemIn the event this information is protected by the Federal Confidentiality of Alcohol and Drug Abuse Patient Records regulations: The Federal rules restrict any use of the information to criminally investigate or prosecute any alcohol or drug abuse patient.[facility] SystemIn the event this information is protected by the Federal Confidentiality of Alcohol and Drug Abuse Patient Records regulations: The Federal rules restrict any use of the information to criminally investigate or prosecute any alcohol or drug abuse patient.[facility] SystemIn the event this information is protected by the Federal Confidentiality of Alcohol and Drug Abuse Patient Records regulations: The Federal rules restrict any use of the information to criminally investigate or prosecute any alcohol or drug abuse patient.[facility] Ordered Prescriptions (unrec ognized section and content) PrescriptionSigDispensedRefillsStart DateEnd Date amLODIPine (NORVASC) 5 MG tablet Take 1 tablet by mouth daily 30 tablet rescriptionSigDispense QuantityRefillsLast FilledStart DateEnd Date midodrine (PROAMATINE) 5 MG tablet Take 1 tablet by mouth 2 times daily (with meals) 90 tablet cephALEXin (KEFLEX) 250 MG capsule Take 1 capsule by mouth every 8 hours for 18 doses 18 capsule / losartan (COZAAR) 25 MG tablet Take 1 tablet by mouth daily 30 tablet PrescriptionSigDispense QuantityRefillsLast FilledStart DateEnd Date aspirin 81 MG chewable tablet Take 1 tablet by mouth daily 30 tablet Scheduled Active and Recently Administ ered Medications (unrecognized section and content) Medication Order// amLODIPine (NORVASC) tablet 5 mg 5 mg, Oral, DAILY, First dose (after last modification) on Thu04/03/22 at 0915, Until Discontinued * 25 (Given - Provider: Vahe Davila RN) carbidopa-levodopa (SINEMET) 25-100 MG per tablet 1 tablet 1 tablet, Oral, NIGHTLY, First dose on Thu04/02/22 at 2100, Until Discontinued * 2143 (Given - Provider: Marbella Swanson RN) * 2100 (Due) celecoxib (CELEBREX) capsule 200 mg 200 mg, Oral, DAILY, First dose on Thu04/03/22 at 0900, Until Discontinued * 09 (Given - Provider: Vahe Davila RN) clopidogrel (PLAVIX) tablet 75 mg 75 mg, Oral, DAILY, First dose on Thu04/03/22 at 0900, Until Discontinued * 09 (Given - Provider: Vahe Davila RN) doxycycline hyclate (VIBRAMYCIN) capsule [...] dairy, calcium, iron, magnesium, aluminum or zinc. * 0910 (Given - Provider: Vahe Davila RN) * 2100 (Due) famotidine (PEPCID) tablet 20 mg 20 mg, Oral, DAILY, First dose on Thu04/03/22 at 1630, Until Discontinued * 1631 (Given - Provider: Vahe Davila RN) fludrocortisone (FLORINEF) tablet 0.1 mg 0.1 mg, Oral, DAILY, First dose on Thu04/03/22 at 0900, Until Discontinued * 0910 (Given - Provider: Vahe Davila RN) levothyroxine (SYNTHROID) tablet 100 mcg 100 mcg, Oral, DAILY, First dose on Thu04/03/22 at 0700, Until Discontinued, Tube feeding (TF) interaction, obtain physician order to manage, recommend holding TF for 30 minutes before and after dose. * 0650 (Given - Provider: Vahe Davila RN) mometasone-formoterol (DULERA) 200-5 MCG/ACT inhaler 2 puff 2 puff, Inhalation, 2 TIMES DAILY, First dose on Thu04/02/22 at 2000, Until Discontinued, Rinse mouth out with water (without swallowing) after every dose. Therapeutic interchange for Trelegy Elliptainhaler * 2051 (Given - Provider: Priyanka Joseph RCP) * 1029 (Given - Provider: Matilde Taylor RCP) * 1999 (Due) oxybutynin (DITROPAN) tablet 5 mg 5 mg, Oral, Nightly, First dose on Thu04/02/22 at 2100, Until Discontinued * 2144 (Given - Provider: Marbella Swanson RN) * 2099 (Due) Roflumilast (DALIRESP) tablet 500 mcg 500 mcg, Oral, DAILY, First dose on Thu04/03/22 at 0900, Until Discontinued * 0910 (Given - Provider: Vahe Davila RN) sodium chloride flush 0.9 % injection 5-40 mL 5-40 mL, IntraVENous, EVERY 12 HOURS SCHEDULED (2 times per day), First dose on Thu04/02/22 at 2100, Until Discontinued, For Line Patency: Peripheral IV = 5 mL; Midline or Central Line = 10 mL/lumen.If following IV push medication, administer flush at same rate as the IV push. Flush volume is determined by type of infusion therapy being given. For non-viscous solutions use: Peripheral IV = 5 mL Midline or Central Line = 10 mL/lumen For viscous solutions (i.e. blood components, parenteral nutrition, contrast media, or after obtaining blood sample) use: Peripheral IV = 10 mL Midline or CentralLine = 20 mL/lumen * 214 (Not Given - Provider: Marbella Swanson RN - Reason: IV Fluid Infusing) * 0929 (Not Given - Provider: Vahe Davila RN - Reason: IV Fluid Infusing) * 2100 (Due) tiotropium (SPIRIVA RESPIMAT) 2.5 MCG/ACT inhaler 2 puff 2 puff, Inhalation, DAILY, First dose on Thu04/03/22 at 0800, Until Discontinued, Therapeutic interchange for Trelegy Ellipta inhaler * 1029 (Given - Provider: Matilde Taylor RCP) traZODone (DESYREL) tablet 150 mg 150 mg, Oral, NIGHTLY, First dose on Thu04/02/22 at 2100, Until Discontinued * 2145 (Given - Provider: Marbella Swanson RN) * 2100 (Due) warfarin (COUMADIN) tablet 5 mg 5 mg, Oral, ONCE Warfarin, 1 dose, On Chana 04/03/22 at 1800, Indication of Use: A Fib/A Flutter, Whatis the patient's goal INR? 2.0 - 3.0, Review INR prior to administration. Hazardous med- See facility policy for handling/disposal * 1800 (Due) warfarin (COUMADIN) tablet 7.5 mg (COMPLETED) 7.5 mg, Oral, ONCE Warfarin, 1 dose, On Thu04/02/22 at 2045, Indication of Use: A Fib/A Flutter, What is the patient's goal INR? 2.0 - 3.0, Review INR prior to administration. Hazardous med- See facility policy for handling/disposal * 1207 (Given - Provider: Marbella Swanson, RN) warfarin placeholder: dosing by pharmacy Please contact the pharmacy if a dose is not entered by 1600. Review INR prior to warfarin administration. Medication Order/ 0.9 % sodium chloride infusion (CANCELED) IntraVENous, at 75 mL/hr, CONTINUOUS, Starting on Thu04/02/22 at 1630 * 1708 (New Bag - Provider: Shante Woo, RN) * 1601 (Stopped - Provider: Vahe Davila, OMAR) Medication Order/ 0.9 % sodium chloride infusion 25 mL, [...] minutes and may repeat up to 3 dosesin 15 minutes. Do not crush or break. [...] at 1156, Until Thu04/03/22 at 1206, Other * 1206 (Given - Provider: Sherice Roman RN) sodium chloride flush 0.9 [...] For viscous solutions (i.e. blood components, parenteral nutrition,contrast media, or after obtaining blood sample) use: Peripheral IV = 10 mL Midline or Central Line= 20 mL/lumen technetium sestamibi (CARDIOLITE) injection 10 millicurie (COMPLETED) 10 millicurie, IntraVENous, IMG ONCE PRN, 1 dose, Starting on Thu04/03/22 at 1004, Until Discontinued, Other * 1000 (Given - Provider: eJff Ramirez) technetium sestamibi (CARDIOLITE) injection 30 millicurie (COMPLETED) 30 millicurie, IntraVENous, IMG ONCE PRN, 1 dose, Starting on Thu04/03/22 at 1004, Until Discontinued, Other * 1150 (Given - Provider: Jeff Ramirez) Order Group 1: acetaminophen (TYLENOL) tablet 650 [...]
Administer if oral route cannot be used.
Medication Order// apixaban (Eliquis) tablet 2.5 mg 2.5 mg, oral, 2 times daily, First dose on Thu03/28/24 at 2100 * 0900 (Not Given - Provider: Kelly Taveras RN - Reason: See Provider Order) * 2100 (Not Given - Provider: Corrina Avitia LPN - Reason: See Provider Order) * 0900 (Not Given - Provider: Cecelia Cid RN - Reason: See Provider Order) * 2100 (Not Given - Provider: Caryn Salmon RN - Reason: See Provider Order) * 0800 (Unheld by provider - Provider: Sylvain Pimentel DO - Reason: Other) * 0827 (Given - Provider: Robbie Moore RN) * 2100 (Due) azelastine (Astelin) 137 mcg (0.1 %) nasal spray 2 spray 2 spray, Each Nostril, 2 times daily, First dose on Thu03/28/24 at 2100 * 0900 (Not Given - Provider: Kelly Taveras RN - Reason: Patient/family refused) * 2099 (Not Given - Provider: Corrina Avitia LPN - Reason: Patient/family refused) * 09 (Not Given - Provider: Cecelia Cid RN - Reason: Patient/family refused) * 2099 (Not Given - Provider: Caryn Salmon RN - Reason: Other - Comment: pt asleep) * 0828 (Given - Provider: Robbie Moore, RN) * 2099 (Due) barium sulfate (E-Z-Paque) 96 % (w/w) suspension 150 mL (COMPLETED) 150 mL, oral, Once in imaging, Starting on Thu04/01/24 at 1042, For 1 dose * 1044 (Given - Provider: Malia Price) calcium carbonate (Tums) chewable tablet 500 mg 500 mg, oral, 2 times daily, First dose on Thu03/28/24 at 2100 * 0900 (Not Given - Provider: Kelly Taveras RN - Reason: Patient/family refused) * 2005 (Given - Provider: Corrina Avitia LPN) * 957 (Given - Provider: Cecelia Cid RN) * 2108 (Given - Provider: Caryn Salmon, OMAR) * 08 (Given - Provider: Robbie Moore, RN) * 2099 (Due) carbidopa-levodopa (Sinemet) 25-100 mg per tablet 1 tablet 1 tablet, oral, Nightly, First dose on Thu03/28/24 at 2100 * 2005 (Given - Provider: Corrina Avitia LPN) * 2108 (Given - Provider: Caryn Salmon, OMAR) * 2099 (Due) clopidogrel (Plavix) tablet 75 mg 75 mg, oral, Daily, First dose on Thu03/28/24 at 2030 * 0900 (Not Given - Provider: Kelly Taveras RN - Reason: See Provider Order) * 09 (Not Given - Provider: Cecelia Cid RN - Reason: See Provider Order) * 0800 (Unheld by provider - Provider: Sylvain Pimentel DO - Reason: Other) * 0827 (Given - Provider: Robbie Moore, OMAR) diatrizoate lele-diatrizoat sod (Gastrografin 37% organic bound iodine) solution 30 mL (COMPLETED) 30 mL, oral, Once, On Thu04/01/24 at 1100, For 1 dose, What is the indication of use? Diagnostic Use * 1044 (Given - Provider: Malia Price) famotidine (Pepcid) tablet 40 mg 40 mg, oral, Daily, First dose on Thu03/28/24 at 2030 * 0900 (Not Given - Provider: Kelly Taveras RN - Reason: Patient/family refused) * 0958 (Given - Provider: Cecelia Cid RN) * 0827 (Given - Provider: Robbie Moore, OMAR) fludrocortisone (Florinef) tablet 0.1 mg 0.1 mg, oral, Daily, First dose on Thu03/28/24 at 2030, On hold since Thu03/28/2024 at 2012 until manually unheld * 0900 (Not Given - Provider: Kelly Taveras RN - Reason: See Provider Order) * 0900 (Not Given - Provider: Cecelia Cid RN - Reason: See Provider Order) * 0900 (Not Given - Provider: Robbie Moore RN - Reason: See Provider Order) fluticasone (Flonase) nasal spray 2 spray 2 spray, Each Nostril, Daily RT, First dose on Thu03/29/24 at 0700, Shake gently. Before first use,prime pump (press 6 times until fine spray appears). After use, clean tip and replace cap. * 0700 (Not Given - Provider: Kelly Taveras RN - Reason: Patient/family refused) * 0624 (Given - Provider: Corrina Avitia LPN) * 0827 (Given - Provider: Robbie Moore, OMAR) fluticasone furoate-vilanteroL (Breo Ellipta) 100-25 mcg/dose inhaler 1 puff (Linked Group 1) 1 puff, inhalation, Daily RT, First dose on Thu03/29/24 at 0700 * 0946 (Given - Provider: Kelly Taveras RN) * 1000 (Given - Provider: Cecelia Cid, RN) * 0827 (Given - Provider: Robbie Moore, RN) furosemide (Lasix) tablet 20 mg 20 mg, oral, Daily, First dose on Thu03/28/24 at 2030 * 0947 (Given - Provider: Kelly Taveras RN) * 0958 (Given - Provider: Cecelia Cid, RN) * 0827 (Given - Provider: Robbie Moore RN) heparin (porcine) injection 5,000 Units (COMPLETED) 5,000 Units, subcutaneous, Every 8 hours, First dose on Thu03/29/24 at 1400, For 5 doses * 0531 (Given - Provider: Jacinta Owen RN) * 1337 (Given - Provider: Kelly Taveras RN) * 2217 (Given - Provider: Corrina Avitia LPN) hydrALAZINE (Apresoline) tablet 25 mg 25 mg, oral, Every 8 hours, First dose on Thu03/28/24 at 2030 * 0529 (Given - Provider: Jacinta Owen RN) * 1230 (Not Given - Provider: Kelly Taveras RN - Reason: Other - Comment: lower bp!) * 2005 (Given - Provider: Corrina Avitia LPN) * 0457 (Given - Provider: Corrina Avitia LPN) * 1216 (Given - Provider: Robbie Moore RN) * 2109 (Given - Provider: Caryn Salmon, OMAR) * 0440 (Given - Provider: Caryn Salmon RN) * 1249 (Given - Provider: Robbie Moore RN) * 2030 (Due) lactated Ringer's bolus 500 mL 500 mL, intravenous, at 250 mL/hr, Administer over 2 Hours, Once, On Thu03/28/24 at 1930, For 1 dose levothyroxine (Synthroid, Levoxyl) tablet 112 mcg 112 mcg, oral, Daily RT, First dose on Thu03/29/24 at 0700 * 0619 (Given - Provider: Jacinta Owen RN) * 0624 (Given - Provider: Corrina Avitia LPN) * 0614 (Given - Provider: Caryn Salmon, OMAR) lidocaine PF (Xylocaine) 10 mg/mL (1 %) injection 1 mg 1 mg (0.1 mL), subcutaneous, Once, On Chana 03/31/24 at 0930, For 1 dose, Recovery (only), To be used for IV insertion ONLY * 0930 (Due) metoprolol succinate XL (Toprol-XL) 24 hr tablet 100 mg 100 mg, oral, Daily, First dose on Thu03/28/24 at 2030, Do not crush or chew. * 0947 (Given - Provider: Kelly Taveras RN) * 0958 (Given - Provider: Cecelia Cid, OMAR) * 0826 (Given - Provider: Robbie Moore, RN) montelukast (Singulair) tablet 10 mg 10 mg, oral, Nightly, First dose on Thu03/28/24 at 2100 * 2005 (Given - Provider: Corrina Avitia LPN) * 2109 (Given - Provider: Caryn Salmon RN) * 2099 (Due) onabotulinumtoxinA (Botox) injection 100 Units (COMPLETED) 100 Units, intramuscular, Once, On Thu03/31/24 at 0900, For 1 dose * 0845 (Given - Provider: Nolan Julio MD MPH - Comment: 100 UNITS BOTOX RECONSTITUTED WITH 4ML SODIUM CHLORIDE PER DR JULIO, INJECTED INTO DISTAL ESOPHAGUS) * 0900 (Not Given - Provider: Debi Diop RN - Reason: Other - Comment: duplicate entry) polyethylene glycol (Glycolax, Miralax) packet 17 g (CANCELED) 17 g, oral, Daily, First dose on Thu03/28/24 at 1805, Bowel Regimen - for prevention of constipation. * 0900 (Not Given - Provider: Kelly Taveras RN - Reason: Patient/family refused) * 0959 (Given - Provider: Cecelia Cid RN) potassium phosphates 15 mmol in dextrose 5% 250 mL IV (COMPLETED) 15 mmol, intravenous, at 63.8 mL/hr, Administer over 4 Hours, Once, On Thu04/01/24 at 0930, For 1 dose, Each 3 mmol contains 4.4 mEq potassium. * 0951 (New Bag - Provider: Robbie Moore, OMAR) * 1351 (Stopped - Provider: Robbie Moore, RN) roflumilast (Daliresp) tablet 500 mcg 500 mcg, oral, Daily RT, First dose on Thu03/29/24 at 0700 * 0700 (Not Given - Provider: Kelly Taveras RN - Reason: Patient/family refused) * 0700 (Due) * 07 (Due) thiamine (Vitamin B-1) tablet 100 mg 100 mg, g-tube, Daily, First dose on Thu03/29/24 at 1230, For 10 doses * 0900 (Not Given - Provider: Kelly Taveras, OMAR - Reason: Patient/family refused) * 0958 (Given - Provider: Cecelia Cid, RN) * 0827 (Given - Provider: Robbie Moore RN) tiotropium (Spiriva Respimat) 2.5 mcg/actuation inhaler 2 puff(Linked Group 1) 2 puff, inhalation, Daily RT, First dose on Thu03/29/24 at 0700, Label inhaler with 3 month expiration date after inserting canister. * 0945 (Given - Provider: Kelly Taveras RN) * 1000 (Given - Provider: Cecelia Cid RN) * 0828 (Given - Provider: Robbie Moore, OMAR) traZODone (Desyrel) tablet 150 mg 150 mg, oral, Nightly, First dose on Thu03/28/24 at 2100 * 2005 (Given - Provider: Corrina Avitia LPN) * 2133 (Given - Provider: Caryn Salmon RN - Comment: ok to give per resident Dr. Oliva) * 2100 (Due) Medication Order/// lactated Ringer's infusion (CANCELED) 20 mL/hr, intravenous, Continuous, Starting on Thu03/31/24 at 0800, Preprocedure * 0744 (New Bag - Provider: Alee Lux RN) * 1014 (Rate/Dose Verify - Provider: Cecelia Cid, OMAR) * 1044 (Stopped - Provider: Robbie Moore, RN) Medication Order/// acetaminophen (Tylenol) oral liquid 650 mg(Linked Group 2) 650 mg, oral, Every 4 hours PRN, pain mild (1-3), first line, Starting on Thu03/28/24 at 1803, Giveoral liquid per feeding tube if present or [...] ordered PRN for pain, nurse is permitted toadminister this medication for higher pain scores based on patient preference? Yes HYDROmorphone (Dilaudid) injection 0.4 mg 0.4 mg, intravenous, Every 3 hours PRN, pain breakthrough, Starting on Thu03/28/24 at 1854 * 1336 (Given - Provider: Kelly Taveras RN) [...] via IV Push, administer over 3-5 minutes. * 0947 (Given - Provider: Kelly Taveras RN) * 1804 (Given - Provider: Kelly Taveras RN) ondansetron ODT (Zofran-ODT) disintegrating tablet 4 mg(Linked Group 3) 4 mg, oral, Every 6 hours PRN, nausea/vomiting, first line, nausea, vomiting,, Starting on Thu03/29/24 at 0343, Patient should allow tablet to dissolve on tongue. Do not remove from blister pack until just before administering. * 0947 (See Alternative - Provider: Kelly Taveras RN) * 180 (See Alternative - Provider: Kelly Taveras RN) oxyCODONE (Roxicodone) immediate release tablet 10 mg 10 mg, oral, Every 6 hours PRN, pain severe (7-10), first line, Starting on Thu03/28/24 at 1854, Ifordered PRN for pain, nurse is permitted to administer this medication for higher pain scores basedon patient preference? Yes * 2004 (Given - Provider: Corrina Avitia LPN) * 09 (Given - Provider: Cecelia Cid RN) oxyCODONE (Roxicodone) immediate release tablet 5 mg 5 mg, oral, Every 6 hours PRN, pain moderate (4-6), first line, Starting on Thu03/28/24 at 1854, Ifordered PRN for pain, nurse is permitted to administer this medication for higher pain scores basedon patient preference? Yes * 0946 (Given - Provider: Kelly Taveras RN) oxygen [...] line, Starting on Thu03/29/24 at 1302, Give AR if patient is unable to take orally or receive by injection. prochlorperazine (Compazine) tablet 10 mg(Linked Group 4) 10 mg, oral, Every 6 hours PRN, nausea/vomiting, first line, Starting on Thu03/29/24 at 1302 Order Group 1: tiotropium (Spiriva Respimat) 2.5 [...] ordered PRN for pain, nurse is permitted toadminister this medication for higher pain scores based on patient preference? Yes Or acetaminophen (Tylenol) oral liquid 650 mgJump to med 650 mg, oral, Every 4 hours PRN, pain mild (1-3), first line, Starting on Thu03/28/24 at 1803, Giveoral liquid per feeding tube if present or [...] line, Starting on Thu03/29/24 at 1302, Give AR if patient is unable to take orally or receive by injection. Medication Order///11/2024 acetaminophen (TYLENOL) tablet 1,000 mg (COMPLETED) 1,000 mg, Oral, ONCE, 1 dose, On Thu03/20/25 at 1530, Maximum dose of acetaminophen is 4000 mg from all sources in 24 hours. * 1542 (Given - Provider: Kelly Maldonado RN) tranexamic acid (CYKLOKAPRON) injection 1,000 mg (COMPLETED) 1,000 mg, Topical, ONCE, 1 dose, On Thu03/20/25 at 1330 * 1328 (Given - Provider: Kelly Maldonado RN - Comment: left giron skin tear) Medication Order///03/2025 atorvastatin (LIPITOR) tablet 40 mg 40 mg, Oral, NIGHTLY, First dose on Thu03/21/25 at 2100, Until Discontinued * 2147 (Given - Provider: Imani Johnson RN) * 2211 (Given - Provider: Imani Johnson RN) * 2100 (Due) calcium gluconate 2,000 mg in sodium chloride 100 mL (COMPLETED) 2,000 mg, IntraVENous, at 50 mL/hr, Administer over 120 Minutes, ONCE, On Thu03/24/25 at 0700, For 1dose * 0821 (New Bag - Provider: Rashmi Liu, OMAR) * 0935 (Stopped - Provider: Rashmi Liu RN) celecoxib (CELEBREX) capsule 200 mg 200 mg, Oral, 2 TIMES DAILY, First dose on Thu03/21/25 at 2100, Until Discontinued, On hold since Thu03/24/2025 at 0818 until manually unheld * 0856 (Given - Provider: Makayla Smallwood RN) * 2147 (Given - Provider: Imani Johnson RN) * 0851 (Given - Provider: Melania Mcclendon RN) * 2211 (Given - Provider: Imani Johnson RN) * 0818 (Held by provider - Provider: WEST Boyd CNP - Reason: Other - Comment: Low Hgb) * 0900 (Automatically Held - Provider: WEST Boyd CNP) * 2100 (Automatically Held - Provider: WEST Boyd CNP) cephALEXin (KEFLEX) capsule 250 mg 250 mg, Oral, EVERY 8 HOURS SCHEDULED (3 times per day), 21 doses, First dose on Thu03/23/25 at 1630, Last dose on Thu03/30/25 at 0600, Antimicrobial Indications: Urinary Tract Infection, UTI durationof therapy: 7 days * 1608 (Given - Provider: Bethany Bai RN) * 2211 (Given - Provider: Imani Johnson RN) * 0600 (Given - Provider: Imani Johnson RN) * 1310 (Given - Provider: Rashmi Liu RN) * 2200 (Due) clopidogrel (PLAVIX) tablet 75 mg 75 mg, Oral, DAILY, First dose on Thu03/21/25 at 1800, Until Discontinued, On hold since Thu03/24/2025 at 0818 until manually unheld * 0856 (Given - Provider: Makayla Smallwood RN) * 0850 (Given - Provider: Melania Mcclendon RN) * 0818 (Held by provider - Provider: WEST Boyd CNP - Reason: Other - Comment: Low hgb) * 0900 (Automatically Held - Provider: WEST Boyd CNP) famotidine (PEPCID) tablet 10 mg 10 mg, Oral, DAILY, First dose (after last modification) on Thu03/24/25 at 0900, Until Discontinued * 0825 (Given - Provider: Rashmi Liu RN) famotidine (PEPCID) tablet 20 mg (CANCELED) 20 mg, Oral, DAILY, First dose on Thu03/21/25 at 1800, Until Discontinued * 0856 (Given - Provider: Makayla Smallwood RN) * 0851 (Given - Provider: Melania Mcclendon RN) fludrocortisone (FLORINEF) tablet 0.2 mg 0.2 mg, Oral, DAILY, First dose on Thu03/21/25 at 1800, Until Discontinued * 0856 (Given - Provider: Makayla Smallwood RN) * 0851 (Given - Provider: Melania Mcclendon RN) * 0824 (Given - Provider: Rashmi Liu RN) lvlfocolare-admfesokj-rbztcu (TRELEGY ELLIPTA) 100-62.5-25 MCG/ACT inhaler 1 puff (Patient Supplied) 1 puff, Inhalation, DAILY, First dose on Thu03/23/25 at 0900, Until Discontinued, Rinse mouth out with water (without swallowing) after every dose. * 0815 (Given - Provider: Floridalma Abreu RCP) * 1013 (Given - Provider: Floridalma Abreu RCP) ipratropium 0.5 mg-albuterol 2.5 mg (DUONEB) nebulizer solution 1 Dose (CANCELED) 1 Dose, Inhalation, 4 TIMES DAILY RESP, First dose on Thu03/22/25 at 1600, Until Discontinued, Initiate RT Bronchodilator Protocol: Yes - Inpatient Protocol * 1515 (Given - Provider: Marleni Barnes RCP) * 2033 (Given - Provider: Ashlie Acosta RCP) * 0541 (Given - Provider: Ashlie Acosta RCP) iron sucrose (VENOFER) 300 mg in sodium chloride 0.9 % 250 mL IVPB (COMPLETED) 300 mg, IntraVENous, at 176.7 mL/hr, Administer over 90 Minutes, ONCE, On Thu03/23/25 at 2000, For 1dose * 2034 (New Bag - Provider: Imani Johnson RN) * 2204 (Stopped - Provider: Imani Johnson RN) levothyroxine (SYNTHROID) tablet 100 mcg 100 mcg, Oral, DAILY, First dose on Thu03/21/25 at 1800, Until Discontinued, Tube feeding (TF) interaction, obtain physician order to manage, recommend holding TF for 30 minutes before and after dose. * 0856 (Given - Provider: Makayla Smallwood RN) * 0851 (Given - Provider: Melania Mcclendon RN) * 0824 (Given - Provider: Rashmi Liu RN) losartan (COZAAR) tablet 25 mg 25 mg, Oral, DAILY, First dose on Thu03/24/25 at 1000, Until Discontinued * 0950 (Given - Provider: Rashmi Liu RN) metoprolol succinate (TOPROL XL) extended release tablet 100 mg 100 mg, Oral, DAILY, First dose on Thu03/21/25 at 1800, Until Discontinued, Do not crush or chew. * 0856 (Given - Provider: Makayla Smallwood RN) * 0851 (Given - Provider: Melania Mccelndon RN) * 0825 (Given - Provider: Rashmi Liu RN) midodrine (PROAMATINE) tablet 2.5 mg (CANCELED) 2.5 mg, Oral, 2 TIMES DAILY WITH MEALS, First dose on Thu03/23/25 at 0900, Until Discontinued, Do not give after 1800 or within 4 hrs of bedtime. * 0851 (Given - Provider: Melania Mcclendon RN) * 1608 (Given - Provider: Bethany Bai RN) midodrine (PROAMATINE) tablet 5 mg 5 mg, Oral, 2 TIMES DAILY WITH MEALS, First dose (after last modification) on Thu03/24/25 at 0800, Until Discontinued, Do not give after 1800 or within 4 hrs of bedtime. * 0826 (Given - Provider: Rashmi Liu RN) * 1700 (Due) montelukast (SINGULAIR) tablet 10 mg 10 mg, Oral, NIGHTLY, First dose on Thu03/21/25 at 2100, Until Discontinued * 2146 (Given - Provider: Imani Johnson RN) * 2210 (Given - Provider: Imani Johnson RN) * 2099 (Due) oxyBUTYnin (DITROPAN-XL) extended release tablet 10 mg 10 mg, Oral, DAILY, First dose on Thu03/21/25 at 1800, Until Discontinued, Do not crush or break. * 0857 (Given - Provider: Makayla Smallwood RN) * 0850 (Given - Provider: Melania Mcclendon RN) * 0824 (Given - Provider: Rashmi Liu RN) Roflumilast (DALIRESP) tablet 500 mcg 500 mcg, Oral, DAILY, First dose on Thu03/21/25 at 1800, Until Discontinued * 0857 (Given - Provider: Makayla Smallwood RN) * 0850 (Given - Provider: Melania Mcclendon RN) * 0825 (Given - Provider: Rashmi iLu RN) rOPINIRole (REQUIP) tablet 2 mg 2 mg, Oral, NIGHTLY, First dose on Thu03/21/25 at 2100, Until Discontinued * 2146 (Given - Provider: Imani Johnson RN) * 221 (Given - Provider: Imani Johnson RN) * 2099 (Due) sodium chloride flush 0.9 % injection 5-40 mL 5-40 mL, IntraVENous, EVERY 12 HOURS SCHEDULED (2 times per day), First dose on Thu03/21/25 at 2100,Until Discontinued, For Line Patency: Peripheral IV = [...] Midline or Central Line = 20 mL/lumen * 0738 (Not Given - Provider: Makayla Smallwood RN - Reason: IV Fluid Infusing) * 2150 (Given - Provider: Imani Johnson, OMAR) * 0929 (Not Given - Provider: Melania Mcclendon RN - Reason: IV Fluid Infusing) * 2213 (Given - Provider: Imani Johnson RN) * 0825 (Not Given - Provider: Rashmi Liu RN - Reason: IV Fluid Infusing) * 2100 (Due) Medication Order// 0.9 % sodium chloride infusion (CANCELED) IntraVENous, at 75 mL/hr, CONTINUOUS, Starting on Thu03/21/25 at 1800 * 0047 (New Bag - Provider: Aleksandr Ernst, OMAR) * 1355 (New Bag - Provider: Makayla Smallwood RN) * 0415 (New Bag - Provider: Angelica Mckeon, OMAR) * 1613 (New Bag - Provider: Bethany Bai, OMAR) * 0457 (New Bag - Provider: Imani Johnson, OMAR) * 0812 (Stopped - Provider: Rashmi Liu, OMAR) Medication Order/ 0.9 % sodium chloride infusion IntraVENous, at 5-250 mL/hr, PRN, if patient receiving piggyback infusions and maintenance fluids are not ordered OR KVO fluids to protect IV site / prevent frequent line interruptions/ long duration, Starting on Thu03/21/25 at 1736, For piggyback infusion, administer at same rate as piggyback for atotal of 25 mL. Enter 25 mL into [...] temp greater than 100.4 F (38 C), Maximumdose of acetaminophen is 4000 mg from all [...] Thu03/21/25 at 1736, Until Discontinued, Constipation, First linetherapy for constipation sodium chloride flush 0.9 % injection 10 mL 10 mL, IntraVENous, PRN, Starting on Thu03/21/25 at 1736, Until Discontinued, Line Care, After everyIV line use traZODone (DESYREL) tablet 50 mg 50 mg, Oral, NIGHTLY PRN, Starting on Thu03/21/25 at 2247, Until Discontinued, Sleep * 2147 (Given - Provider: Imani Johnson RN) * 2211 (Given - Provider: Imani Johnson RN) Order Group 1: acetaminophen (TYLENOL) tablet 650 mgJump to med 650 mg, Oral, EVERY 6 HOURS PRN, Starting on Thu03/21/25 at 1736, Until Discontinued, Pain Mild (1-3) OR per patient request for pain score (4-10), Fever, For temp greater than 100.4 F (38 C), Maximumdose of acetaminophen is 4000 mg from all [...] Administer if oral route cannot be used. Medication Order/ aspirin chewable tablet 81 mg 81 mg, Oral, DAILY, First dose on Thu04/27/25 at 0900, Until Discontinued, Recovery(Cath) clopidogrel (PLAVIX) [...] mL; Midline or Central Line = 10 mL/lumen.If following IV push medication, administer flush at same rate as the IV push. Flush volume is determined by type of infusion therapy being given. For non-viscous solutions use: Peripheral IV = 5 mL Midline or Central Line = 10 mL/lumen For viscous solutions (i.e. blood components, parenteral nutrition, contrast media, or after obtaining blood sample) use: Peripheral IV = 10 mL Midline or CentralLine = 20 mL/lumen, PACU only * 1045 (Due) * 2100 (Due) sodium chloride flush 0.9 % injection 5-40 mL 5-40 mL, IntraVENous, EVERY 12 HOURS SCHEDULED (2 times per day), First dose on Thu04/26/25 at 1030, Until Discontinued, For Line Patency: Peripheral IV = 5 mL; Midline or Central Line = 10 mL/lumen.If following IV push medication, administer flush at same rate as the IV push. Flush volume is determined by type of infusion therapy being given. For non-viscous solutions use: Peripheral IV = 5 mL Midline or Central Line = 10 mL/lumen For viscous solutions (i.e. blood components, parenteral nutrition, contrast media, or after obtaining blood sample) use: Peripheral IV = 10 mL Midline or CentralLine = 20 mL/lumen, Recovery(Cath) * 1030 (Due) * 2100 (Due) Medication Order/ 0.9 % sodium chloride infusion (CANCELED) IntraVENous, at 75 mL/hr, CONTINUOUS, Starting on Thu04/26/25 at 0745, Pre-Procedure(Cath) * 0815 (New Bag - Provider: Morteza Alexander APRN - SENIOR PRODUCT INTEGRITY ENGINEER) * 0843 (Anesthesia Volume Adjustment - Provider: Marielle New APRN - SENIOR PRODUCT INTEGRITY ENGINEER) * 0948 (OCT Hold - Provider: Mar Autohold - Reason: Unreviewed Transfer Orders) * 0948 (OCT Unhold - Provider: Automatic Transfer Provider) * 1554 (Stopped - Provider: Tommy Juarez, OMAR) 0.9 % sodium chloride infusion IntraVENous, at 75 mL/hr, CONTINUOUS, Starting on Thu04/26/25 at 1030, For 2 hours, Recovery(Cath) * 0835 (New Bag - Provider: Chantelle Cortez, OMAR) * 1553 (Stopped - Provider: Tommy Juarez, OMAR) * 1604 (Stopped - Provider: Chantelle Cortez, OMAR) lactated ringers infusion IntraVENous, at 125 mL/hr, CONTINUOUS, Starting on Thu04/26/25 at 1045, PACU only * 1045 (Due) Medication Order9//05/2025 0.9 % sodium chloride infusion IntraVENous, at [...] score (7-10), Pain Severe (7-10), For Phase I.If Phase II oral narcotics have been administered in the last 60 minutes, do not administer IV narcotics unless specifically approved by provider., PACU only * 1146 (Given - Provider: Chantelle Cortez, RN) * 1219 (Given - Provider: Chantelle Cortez, OMAR) iopamidol (ISOVUE-370) 76 % injection (CANCELED) PRN, Starting on Thu04/26/25 at 0928, Until Thu04/26/25 at 0935, Intra-procedure(Cath) * 0928 (Given - Provider: Davidson Herrera MD) labetalol (NORMODYNE;TRANDATE) injection 10 mg 10 mg, IntraVENous, EVERY 15 MIN PRN, 2 doses, Starting on Thu04/26/25 at 1027, Until Discontinued,High Blood Pressure, for SBP greater than 180 mmHg for 2 consecutive measurements taken from different sites., Inform provider if SBP is still greater than 180 mmHg, 10 minutes after second antihypertensive dose is administered., PACU only lidocaine 1 % injection (CANCELED) IntraDERmal, PRN, Starting on Thu04/26/25 at 0829, Until Thu04/26/25 at 0935, Intra-procedure(Cath) * 0829 (Given - Provider: Davidson Herrera MD - Comment: right) metoclopramide (REGLAN) injection 10 mg 10 mg, IntraVENous, ONCE PRN, 1 dose, Starting on Thu04/26/25 at 1027, Until Discontinued, Nausea, Initial antiemetic therapy., PACU only naloxone 0.4 mg in 10 mL sodium chloride syringe IntraVENous, PRN, Opioid Reversal, Starting on Thu04/26/25 at 1027, PRN if respiratory rate is lessthan 6/min and patient is difficult to arouse [...] For viscous solutions (i.e. blood components, parenteral nutrition,contrast media, or after obtaining blood sample) use: Peripheral IV = 10 mL Midline or Central Line= 20 mL/lumen, Recovery(Cath) Order Group 1: ondansetron (ZOFRAN-ODT) disintegrating tablet [...] BE BASED ON THE PRIMARY CLINICAL RECORDS. [employer] [facility]. provides no warranty or guarantee of the accuracy or completeness of information in this document.
== END 2025-06-15 13:05 | disposition home or self-care (01) ==
LOC: WC 13:04
PROVIDERS: PCP Family Medicine; Visit Provider Physician Assistant
DX: S81.011D Laceration without foreign body, right knee, subsequent encounter (principal); S81.812D Laceration without foreign body, left lower leg, subsequent encounter
CPT/HCPCS: 29581